=== PATIENT | male | born 1945 | race Caucasian/White ===

== ENCOUNTER 2016-10-02 14:38 | Inpatient (IN) | payer OTHER ==
[~2016-10-02] VITALS: Ht 172.7 cm; Wt 69.7 kg
[~2016-10-02 14:38] MED LIST: FLV1 PO; GABA-112 PO; OLAN1TAB5 PO; OMG3 PO; PYR50 PO; VTMB12100 PO; VTMD1000 PO; ZOLP10TA PO
[2016-10-02 14:51] VITALS: O2SAT 96
[2016-10-02 15:38] LABS: URINE APPEARANCE CLOUDY (CLEAR); URINE BILIRUBIN NEG (NEG); URINE COLOR YELLOW; URINE EPITHELIAL CELL AUTO 0-5 /lpf (0-5); URINE NITRITE NEG (NEG); URINE SPECIFIC GRAVITY 1.012 (1.000-1.030); UROBILINOGEN NEG (NEG); ZZUR CULT IF INDIC CLEAN CATCH NO
[2016-10-02 15:43] LABS: MEAN CELL VOLUME 90.5 fL (80-100); MEAN CORPUSCULAR HEMOGLOBIN 31.7 pg (25-34); MEAN PLATELET VOLUME 8.6 fL (7.4-10.4); PLATELET COUNT 263 K/uL (130-400); RED BLOOD COUNT 4.86 M/uL (4.7-6.1); WHITE BLOOD COUNT 8.74 K/uL (4.8-10.8)
[2016-10-02 15:50] LABS: BENZODIAZEPINE, URINE NEG (NEG); COCAINE,URINE NEG (NEG); MANUAL MICROSCOPIC REQUIRED? NO; PHENCYCLIDINE, URINE NEG (NEG); REVIEW REQ? NO
--- NOTE | 2016-10-02 15:59 | EMERGENCY ROOM VISIT NOTE ---
History Report prepared by Len: Elder Miguel Under the Supervision of: Dr. Shaquille Saha M.D. First contact with patient: 15:09 Chief Complaint: MENTAL HEALTH EVALUATION Stated Complaint: SUICIDAL COMMENTS/THOUGHTS-SENT BY [facility] History of Present Illness The patient is a 71 year old male who presents to the Emergency Room from [place] [facility] with complaints of sudden suicidal ideation beginning several hours prior to arrival. As per nurse, the patient was making suicidal comments. [facility] was called, and the patient was brought to the ED with the counter caser. The patient states he took 100 Aspirin tablets in an attempt to kill himself two months ago but was unsuccessful. He notes he never told anyone about the incident. The patient states he also bought a rope two weeks ago with thoughts to hang himself. He notes he wants to hang himself because of a constant ringing in his right ear. The patient states the ringing in his ear has been ongoing for 20 years. He notes he is willing to come into the hospital for further treatment. The patient denies nausea, vomiting, diarrhea, and abdominal pain. 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 Review of Systems See HPI for pertinent positives & negatives. A total of 10 systems reviewed and were otherwise negative. Past Medical & Surgical Medical Problems: (1) Benzodiazepine abuse (2) Depression (3) Hypertension (4) Noncompliance (5) past psych meds (6) past psycy meds (7) Schizophrenia (8) Tobacco use disorder Family History FH: schizophrenia Social History Smoking Status: Former Smoker Alcohol Use: none Drug Use: none Marital Status: single Housing Status: lives alone Occupation Status: disabled, other Current/Historical Medications Scheduled Clonidine Hcl (Catapres), 0.1 MG PO BID Fish Oil (Fish Oil), 2 GM PO HS Folic Acid (Folic Acid), 400 MCG PO HS Gabapentin (Neurontin), 100 MG PO TID Olanzapine (Zyprexa), 20 MG PO HS Olanzapine (Olanzapine), 10 MG PO HS Scheduled PRN Zolpidem Tartrate (Ambien), 10 MG PO HS PRN for Sleep Allergies Coded Allergies: No Known Allergies (Unverified , 05/09/16) Physical Exam Vital Signs Date Time Temp Pulse Resp B/P Pulse Ox O2 Delivery O2 Flow Rate FiO2 10/02/16 14:51 37.1 99 20 126/81 96 Room Air Physical Exam GENERAL: Patient is in no acute distress. HEENT: No acute trauma, normocephalic atraumatic, mucous membranes moist, no nasal congestion, no scleral icterus. Left TM occluded by wax. Right TM normal. NECK: No stridor, no adenopathy, no meningismus, trachea is midline. LUNGS: Clear to auscultation bilaterally, no wheeze, no rhonchi, breath sounds equal. HEART: Without murmurs gallops or rubs, regular rate and rhythm. ABDOMEN: Soft, nontender, bowel sounds positive, no hernias, no peritonitis. EXTREMITIES: No cyanosis or edema, full range of motion of all the joints without pain or difficulty, no signs for acute trauma. NEUROLOGIC: Oriented x 3, no acute motor or sensory deficits, no focal weakness. SKIN: No rash, no jaundice, no diaphoresis. PSYCH: Cooperative. Admits to suicidal ideation with a plan to hang himself. Currently voluntary. Currently cooperative. Medical Decision & Procedures Laboratory Results 10/02/16 15:32 10/02/16 15:32 Test 10/02/16 15:00 10/02/16 15:32 Urine Color YELLOW Urine Appearance CLOUDY (CLEAR) Urine pH 8.0 (4.5-7.5) Urine Specific Dickinson 1.012 (1.000-1.030) Urine Protein NEG (NEG) Urine Glucose (UA) NEG (NEG) Urine Ketones NEG (NEG) Urine Occult Blood TRACE (NEG) Urine Nitrite NEG (NEG) Urine Bilirubin NEG (NEG) Urine Urobilinogen NEG (NEG) Urine Leukocyte Esterase NEG (NEG) Urine WBC (Auto) 0 /hpf (0-5) Urine RBC (Auto) 5-10 /hpf (0-4) Urine Hyaline Casts (Auto) 0 /lpf (0-5) Urine Epithelial Cells (Auto) 0-5 /lpf (0-5) Urine Bacteria (Auto) NEG (NEG) Urine Opiates Screen NEG (NEG) Urine Methadone, Qualitative NEG (NEG) Urine Barbiturates NEG (NEG) Urine Phencyclidine (PCP) Level NEG (NEG) Ur Amphetamine/Methamphetamine NEG (NEG) MDMA (Ecstasy) Screen NEG (NEG) Urine Benzodiazepines Screen NEG (NEG) Urine Cocaine Metabolite NEG (NEG) Urine Marijuana (THC) NEG (NEG) Red Blood Count 4.86 M/uL (4.7-6.1) Mean Corpuscular Volume 90.5 fL (80-100) Mean Corpuscular Hemoglobin 31.7 pg (25-34) Mean Corpuscular Hemoglobin Concent 35.0 g/dl (32-36) RDW Standard Deviation 43.6 fL (36.4-46.3) RDW Coefficient of Variation 13.2 % (11.5-14.5) Mean Platelet Volume 8.6 fL (7.4-10.4) Anion Gap 12.0 mmol/L (3-11) Est Creatinine Clear Calc Drug Dose 80.1 ml/min Estimated GFR () 103.3 Estimated GFR (Non- 89.2 BUN/Creatinine Ratio 23.9 (10-20) Calcium Level 9.0 mg/dl (8.5-10.1) Total Bilirubin 0.6 mg/dl (0.2-1) Aspartate Amino Transf (AST/SGOT) 16 U/L (15-37) Alanine Aminotransferase (ALT/SGPT) 28 U/L (12-78) Alkaline Phosphatase 90 U/L (45-117) Total Protein 7.7 gm/dl (6.4-8.2) Albumin 3.7 gm/dl (3.4-5.0) Globulin 4.0 gm/dl (2.5-4.0) Albumin/Globulin Ratio 0.9 (0.9-2) Thyroid Stimulating Hormone (TSH) 2.680 uIu/ml (0.300-4.500) Salicylates Level < 1.7 mg/dl (2.8-20) Acetaminophen Level < 2 ug/ml (10-30) Ethyl Alcohol mg/dL < 3.0 mg/dl (0-3) Laboratory results reviewed by me. ED Course 1512: The patient was evaluated in room A7. A complete history and physical exam was performed. 1910: The patient was accepted for admission upstairs to Psych. Medical Decision The differential diagnoses include but are not limited to: suicidal ideation, medication noncompliance, drug or alcohol abuse, electrolyte imbalance, thyroid disorder. There is no leukocytosis or concerning anemia. No significant electrolyte abnormality, kidney failure, hepatitis. The patient appears to be in a euthyroid state. Urinalysis shows some mild hematuria, no signs of infection. Urine tox was negative. Aspirin, Tylenol and alcohol levels were undetectable. The patient presents with suicidal ideation. He is willing to come into the hospital voluntarily. He was felt medically clear for a psychiatric evaluation. The patient was seen by the psychiatric director of casework department. He was seen by the psychiatric services from our hospital, he will be admitted to this hospital's psychiatric facility. Impression Primary Impression: Suicidal ideation Scribe Attestation The scribe's documentation has been prepared under my direction and personally reviewed by me in its entirety. I confirm that the note above accurately reflects all work, treatment, procedures, and medical decision making performed by me. Departure Information Dispostion Mental Health Acute Care Referrals No Doctor, Assigned (PCP)
[2016-10-02 16:12] LABS: ACETAMINOPHEN < 2 ug/ml (10-30); BUN/CREATININE RATIO 23.9 (10-20); CREATININE 0.83 mg/dl (0.60-1.40); POTASSIUM 3.9 mmol/L (3.5-5.1)
[2016-10-02 16:24] LABS: ALB/GLOB RATIO 0.9 (0.9-2); THYROID STIMULATING HORMONE 2.68 uIu/ml (0.300-4.500)
[2016-10-02] MEDS ORDERED: ZYP10 PO (16:51)
[2016-10-02] MEDS ORDERED: FLV400 PO (16:51)
[2016-10-02] MEDS ORDERED: CTP/1 PO (16:51)
[2016-10-02] MEDS ORDERED: BISMUTH SUBSALICYLATE PER ML OMNICELL CHARGE PO PRN (17:30)
[2016-10-02] MEDS ORDERED: ALUMINUM/MAGNESIUM SUSP 30 ML UDC PO PRN (17:30)
[2016-10-02] MEDS ORDERED: SODIUM CHLORIDE 0.65% NA SOLN 45 ML (OCEAN) PRN (17:30)
[2016-10-02] MEDS ORDERED: hydrOXYzine HCL 25 MG TAB PO PRN ×2 (17:30)
[2016-10-02] MEDS ORDERED: ACETAMINOPHEN 325 MG TAB PO PRN (17:30)
[2016-10-02 20:10] VITALS: BP_SYST 135; BP_SYST 143; BP_DIAS 88; BP_DIAS 89; PULSE 88; PULSE 89; TEMP 37.2; Ht 172.7 cm; Wt 69.7 kg
[2016-10-02] MEDS: FoLIC ACID TAB 400 MCG TAB PO SCH (21:55)
[2016-10-02] MEDS: GABAPENTIN 100 MG CAP PO SCH (21:56)
[2016-10-02] MEDS: OMEGA-3 (PURIFIED FISH OIL) 1 GM CAP PO SCH (21:57)
[2016-10-02] MEDS: OLANZAPINE 20 MG TAB PO SCH (21:59)
[2016-10-02] MEDS: ZOLPIDEM TARTRATE 10 MG TAB PO PRN (21:59)
[2016-10-02] MEDS ORDERED: OLANZAPINE 10 MG TAB PO SCH (22:00)
[2016-10-02 22:17] VITALS: BP 109/69; PULSE 84
[2016-10-02] MEDS: CLONIDINE HCL 0.1 MG TAB PO SCH (22:36)
[2016-10-03 06:52] VITALS: BP_SYST 125; BP_SYST 133; BP_DIAS 75; BP_DIAS 83; PULSE 76; PULSE 87; TEMP 36.9
[2016-10-03] MEDS: GABAPENTIN 100 MG CAP PO SCH ×3 (08:50→21:28)
[2016-10-03] MEDS: NICOTINE 21 MG/24 HR TDSY TD SCH (08:50)
[2016-10-03] MEDS: CLONIDINE HCL 0.1 MG TAB PO SCH ×2 (08:50→21:10)
[2016-10-03] MEDS ORDERED: QUETIAPINE FUMARATE 25 MG TAB PO PRN (09:45)
--- NOTE | 2016-10-03 11:04 | HISTORY & PHYSICAL EXAMINATION ---
DATE OF ADMISSION: 10/02/2016 IDENTIFYING DATA: Trey Santiago is a 71-year-old gentleman currently residing at the [facility] in [place], [place]. He is admitted to the hospital due to suicidal statements, history of overdose 2 months ago and exacerbation of schizophrenia. Information is gathered from the patient and considered to be reliable. CHIEF COMPLAINT: "Noise on the right side of my face." HISTORY OF PRESENT ILLNESS: Jamie Santiago is a 71-year-old gentleman well known to our unit from multiple hospitalizations for paranoid schizophrenia. He was last here in the summer of 2015 for an extended stay from 03/16/2016 to 04/27/2016. Although we had considered long-term state hospitalization, he was discharged back to the [facility] where he had resided previously. He is under the outpatient care of SHA Jasmine at [facility]. He reports that he went to see her yesterday, requested Valium for his high anxiety, which was denied. He admits that he got "upset" and went home and made suicidal statements. He admits to having a rope on his counter which he says is there to remind him how much he wants to live; however, reports were that he had the rope to hang himself and when asked to turn that over to the [facility] staff he said that they could take it, but he would just get another one and that it was intended for his use in suicide. This will need to be confirmed with the [facility] staff. He indicates his primary problem is that he still has pain and noise in his right ear and the right side of his face. He says that his anxiety is bad, nobody understands it and the only thing that helped is Valium. He also says the pain is severe and asks for medications, but when I review with him that we will not be prescribing narcotics he says "okay." He does admit that about 2 months ago, she took an overdose of 100 aspirin tablets in a suicide attempt because "I couldn't stand the ringing". He said nothing happened. He did not come to medical or psychiatric attention and he said he has had no medical sequelae since then including worsening to the ringing in his ears. He reports that "I have a good mood". He denies that he is suicidal and says clearly "I want to live." His energy has been "medium". His appetite is good, weight has been stable. His anxiety is "not good" but denies panic attacks. He says that for the most part his auditory hallucinations are gone although he says that occasionally he may hear what he thinks is 1 voice but it is "not bad." He denies visual hallucinations. He denies ideas of reference from TV or radio. He denies self-injurious behaviors. He has never had any history of eating disordered behaviors. He has not had any evidence of bipolar illness. CURRENT MEDICATIONS: 1. Catapres 0.1 mg b.i.d. 2. Fish oil 2 grams at bedtime. 3. Folic acid 400 mcg at bedtime. 4. Neurontin 100 mg t.i.d. 5. Zyprexa 30 mg at bedtime. 6. Ambien 10 mg at bedtime p.r.n. PAST PSYCHIATRIC HISTORY: Again, the patient sees SHA Jasmine at [facility]. He does not have a therapist. His case maker currently is a woman whose name is Kat. He has had many hospitalizations in the past on our mental health unit, [facility], and a stay at [facility] in 2013. He has made at least 1 suicide attempt in the past by overdose. He denies any evidence of violence to others in the last 6 months but violence to self by way of the aspirin overdose 2 months ago. PRIOR MEDICATION TRIALS: Include but are not limited to: 1. Zyprexa. 2. Risperdal. 3. Abilify. 4. Haldol -- dystonia. 5. Amitriptyline. 6. Imipramine. 7. Ambien. 8. Thorazine - NMS. 9. Temazepam. 10. Cymbalta -- GI symptoms. 11. Navane. 12. Loxitane. 13. Invega. 14. Latuda. ACCESS TO GUNS: Denies. ALLERGIES: NKDA. PAST MEDICAL HISTORY: 1. Hypertension. 2. Denies for personal history of obesity, diabetes, dyslipidemia or cardiovascular disease. 3. No history of head injury or seizure. 4. Tobacco use -- nonsmoker. FAMILY HISTORY: Positive for a cousin with schizophrenia who committed suicide. Mother also had schizophrenia and father was an alcoholic. Medically, he denies family history for obesity, hypertension, diabetes, heart disease or dyslipidemia. SUBSTANCE USE HISTORY: The patient has a very remote history of binge drinking, but nothing in the last 1 year. He has a remote history of cannabis use but none in the last year. He denies ever having been in substance use treatment. He did have charges related to growing marijuana many years ago. PERSONAL HISTORY: The patient was born in [place]. He moved around a lot growing up as his father was an combustion engineer. The patient has a college degree from [employer]. 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 The patient has never been . He has no children. He does not consider himself to be a spiritual individual. Legal concerns are denied. Psychological trauma history is denied. MENTAL STATUS EXAMINATION: This 71-year-old gentleman who looks much younger than his stated age. He is alert and cooperative with the interview. He does appear to be slightly hard of hearing and I have to speak louder to be heard. He makes good eye contact. Motor behavior is unremarkable; gait and station are within normal limits. There is no evidence of abnormal mouth or other muscle movements. Speech is of normal rate, volume, and tone. Affect is flat to restricted. Mood is "good." Thought process is organized and goal directed. He endorses occasional auditory hallucinations of 1 voice and ongoing complaints of ringing in his ears that may or may not be delusional. He denies suicidal thinking, although it was reported he made suicidal statements in response to being upset that he will not be prescribed Valium, prior to admission. He denies homicidal ideation. Today, the patient is fully oriented. Memory functions are intact. Fund of knowledge is intact. Intelligence is estimated to be average. Insight and judgment are impaired. VITAL SIGNS: Temperature 36.9, pulse 76 supine, 87 sitting, respirations 16, blood pressure 125/75 supine, 133/83 sitting. LABORATORIES: 1. CBC -- within normal limits. 2. Chem profile -- notable only for BUN slightly elevated at 20, random glucose elevated at 110. 3. TSH -- within normal limits at 2.680. 4. Toxicology -- negative. 5. Urinalysis -- within normal limits with the exception of a trace amount of occult blood. 6. IgG and IgM pending. REVIEW OF SYSTEMS: A full 10 systems has been reviewed and all found to be negative. PHYSICAL EXAMINATION: Exam performed by Dr. Saha in the Emergency Room last night has been reviewed and accepted for our purposes here on the mental health unit. PATIENT'S STRENGTHS AND NEEDS: 1. Strengths -- intelligence, good support from outpatient providers. 2. Needs - to be cooperative with treatment recommendations. RISK ASSESSMENT: 1. Risk factors -- male, , single, chronic mental illness, chronic anxiety, history of substance use, history of suicide attempts, multiple hospitalizations. 2. Protective factors -- no access to guns, no comorbid medical conditions impairing recovery, lives in a supervised living situation at [facility], has good relationship with outpatient providers. IMPRESSION: A 71-year-old gentleman with schizophrenia, well known to our unit, admitted after making suicidal statements when he was not provided Valium. He otherwise denies that he is having mood problems but says his biggest problem is anxiety. In review of his past medications I find only limited evidence that he has tried Seroquel in the past, specifically I see he had a 1 time dose during an admission in 2010. He does not remember having been on Seroquel and is agreeable to a trial of this, which I think may be better able to tamp down his anxiety. The concern is that he is on a more potent antipsychotic and admits that the auditory hallucinations have abated on this medication. We will be cautious and with any evidence of return of hallucinations, will either escalate the dose of Seroquel or return to Zyprexa. At this point I will cut the Zyprexa to 20 mg at bedtime and start Seroquel 100 mg at bedtime with the intent to cross taper. I will also order 25 mg p.o. q. 6 hours p.r.n. anxiety associated with psychosis. We will continue his other medications, coordinate with his outpatient providers. At this time, however, he requires inpatient mental health treatment due to the severity of his condition, threats to commit suicide and the risk for same if discharged. DIAGNOSES: 1. Paranoid schizophrenia, acute exacerbation. 2. Hypertension. PLAN: Has been reviewed with Dr. Alison Campos. 1. Paranoid schizophrenia. -- Reduce Zyprexa to 20 mg at bedtime while starting Seroquel 100 mg at bedtime for cross titration. -- We will also start Seroquel 25 mg p.o. q. 4 hours p.r.n. anxiety associated with psychosis. -- Obtain outpatient records from current providers. -- Q. 15 minute checks for safety. -- Encourage participation in group and individual counseling. -- Reality orientation. -- Encourage behavioral interventions for anxiety such as relaxation, mindfulness and breathing exercise. 2. Hypertension. -- Continue clonidine at outpatient doses. -- Monitor BP. INITIAL HOSPITAL CARE: [id number].
[2016-10-03] MEDS: ZOLPIDEM TARTRATE 10 MG TAB PO PRN (21:10)
[2016-10-03] MEDS: QUETIAPINE FUMARATE 100 MG TAB PO SCH (21:10)
[2016-10-03] MEDS: OLANZAPINE 20 MG TAB PO SCH (21:10)
[2016-10-03] MEDS: OMEGA-3 (PURIFIED FISH OIL) 1 GM CAP PO SCH (21:10)
[2016-10-03] MEDS: FoLIC ACID TAB 400 MCG TAB PO SCH (21:10)
[2016-10-03 21:14] VITALS: BP 138/83; PULSE 72
[2016-10-04 06:52] VITALS: BP_SYST 103; BP_SYST 133; BP_DIAS 63; BP_DIAS 82; PULSE 65; PULSE 74; TEMP 36.9
[2016-10-04 07:54] LABS: CHOLESTEROL/HDL RATIO 2.6
[2016-10-04] MEDS: NICOTINE 21 MG/24 HR TDSY TD SCH (08:57)
[2016-10-04] MEDS: GABAPENTIN 100 MG CAP PO SCH ×3 (08:57→21:11)
[2016-10-04] MEDS: CLONIDINE HCL 0.1 MG TAB PO SCH ×2 (08:57→21:11)
--- NOTE | 2016-10-04 10:55 | Psychiatric Progress Notes ---
Progress Note Date of Service Oct 04, 2016. Interval History 71 yo man with schizophrenia, admitted with ongoing reports of a ringing in his ear, and suicidality having by report, attempted to hang himself with a rope. He was admitted voluntarily on 10/05 Chief Complaint "OK". Subjective Patient was seen & assessed interval progress reviewed with Treatment Team. The patient says that he is doing well, with good mood. He said that he didn't think that he got the Seroquel last night but had a good night's sleep (did get per med rec). He is still complaining of ringing in his right ear and pain in the right side of his face. Info obtained from his case liner who said that Jamie had been to see [facility] for the first time yesterday and was upset that she would not prescribe valium, leading to his suicidality. He has also had a recent workup with and ENT in the area and no pathology found. The patient is pleased that he slept and would like to continue the cross taper to Seroquel. He denies visual hallucinations or voices. He reports good appetite and sleep. He denies SI/HI. Review of Systems Constitutional: No chills, No fatigue, No fever, No problem reported, No sweats , No weakness, No weight loss ENT: + hearing loss, + problem reported (ringing right ear) Respiratory: No cough, No dyspnea at rest, No dyspnea on exertion, No hemoptysis, No problem reported, No shortness of breath, No sputum, No wheezing Cardiovascular: No PND, No chest pain, No claudication, No edema, No orthopnea , No palpitations, No problem reported Abdomen: No GI bleeding, No constipation, No diarrhea, No nausea, No pain, No problem reported, No vomiting Musculoskeletal: No calf pain, No joint pain, No muscle pain, No problem reported, No swelling Neurologic: No balance problems, No memory loss, No numbness/tingling, No paralysis, No problem reported, No vertigo, No weakness Psychiatric: + anxiety Integumentary: No bleeding, No color change, No itch, No new/changing skin lesions, No problem reported, No rash Sleep Information Total Hours of Sleep: 7.00 Meal Information Percent of Breakfast Consumed: 100 Percent of Lunch Consumed: 100 Percent of Dinner Consumed: 100 Mental Status Exam During interview pt is: alert and oriented, cooperative Appearance: appropriately dressed, appropriately groomed Eye contact is: good Motor behavior is: steady gait & station, no abnormal motor movements Speech: normal in rate, rhythm & volume Affect: flat (and not mood congruent) Mood is: anxious Thought process: goal directed Thought content: preoccupation (with ringing in his ear that could be delusional) Suicidal thought are: denied Homicidal thoughts are: denied Hallucinations: auditory, denies auditory Cognition: memory grossly intact, attention grossly intact Intelligence estimated to be: average Insight: impaired Judgement: impaired Impression Cooperative with treatment, is attending groups. Is tolerating initiation of Seroquel, so will increase to 150 mg. tonight and reduce zyprexa to 15 mg. HS. Will need to arrange a meeting with [facility] staff to clarify events leading to hospitalization, and to clarify their expectations. Although he is saying that he is not suicidal, I have high suspicion that he is minimizing this in an effort to look better than he is. He has very few protective factors to prevent him from attempting again. Continued Inpatient Care Requires inpatient care due to the severity of his condition and the risk for self harm if discharged. Plan (1) paranoid schizophrenia 10/05 - Increase Seroquel to 150 mg. - Decrease Zyprexa to 15 mg. HS - Coordinate with [facility] and arrange meeting - Q 15 min checks for safety - Encourage participation in group and individual counseling - Will need to determine if the patient will be returning to [facility] or back to Dr. Alves - Monitoring labs for atypicals completed 10/04, and WNL Discharge / Aftercare Planning Psychiatrist: Name: Rosa M Parker through [facility] Therapist: Name: does not want Philanthropy Officer: Name: Shruti rhoades case liner and goal clinical care manager Visit Code E&M Code: 34918 Inventory Assets Strengths: Intelligence, willingness to engage in treatment Needs: Insight Risk Factors Assessment Male: Yes : Yes /single/: Yes Higher / Fall in social status: No Access to guns: No Health problems: No Mental Health Diagnoses: Yes Substance use disorders: Yes Previous attempt: Yes Previous psychiatric stay: Yes Protective Factors Assessment Tenriism beliefs: No : No Responsible for young children: No Employed: No Stable relationships: No Supportive family: No Good rapport with provider: No Data Vital Signs Last 24 Hrs: Date Time Temp Pulse Resp B/P Pulse Ox O2 Delivery O2 Flow Rate FiO2 10/04/16 06:52 36.9 65 18 103/63 74 133/82 10/03/16 21:14 72 16 138/83 72 Meds Administered Last 24 Hrs: Meds Administered (Past 24Hrs) Medications (Trade) Dose Ordered Sig/Gabe Route Start Time Stop Time Status Last Admin Dose Admin Clonidine HCl (Catapres Tab) 0.1 mg BID PO 10/02/16 21:00 11/01/16 20:59 Future hold 10/04/16 08:57 0.1 MG Fish Oil (Conner-3 (Purified Fish Oil) Cap) 2 gm HS PO 10/02/16 22:00 11/01/16 21:59 10/03/16 21:10 2 GM Folic Acid (Folvite Tab) 400 mcg HS PO 10/02/16 22:00 11/01/16 21:59 10/03/16 21:10 400 MCG Gabapentin (Neurontin Cap) 100 mg TID PO 10/02/16 22:00 11/01/16 21:59 10/04/16 08:57 100 MG Olanzapine (Zyprexa Tab) 10 mg HS PO 10/02/16 22:00 10/03/16 09:44 DC 10/02/16 22:03 10 MG Olanzapine (Zyprexa Tab) 20 mg HS PO 10/02/16 22:00 11/01/16 21:59 10/03/16 21:10 20 MG Zolpidem Tartrate (Ambien Tab) 10 mg HS PRN PO 10/02/16 19:30 11/01/16 19:29 10/03/16 21:10 10 MG Nicotine (Nicoderm Cq 21MG Patch) 1 patch QAM TD 10/03/16 09:00 11/02/16 08:59 10/04/16 08:57 1 PATCH Quetiapine Fumarate (seroQUEL TAB) 100 mg HS PO 10/03/16 22:00 11/02/16 21:59 10/03/16 21:10 100 MG Lab Results Last 24 Hrs: Last 24 Hours Test 10/04/16 07:07 Fasting Glucose 91 mg/dl Triglycerides Level 54 mg/dl Cholesterol Level 154 mg/dl HDL Cholesterol 59 mg/dl LDL Cholesterol, Calculated 84 mg/dl VLDL Cholesterol, Calculated 11 mg/dl Cholesterol/HDL Ratio 2.6
[2016-10-04 21:06] VITALS: BP 130/85; PULSE 73
[2016-10-04] MEDS: FoLIC ACID TAB 400 MCG TAB PO SCH (21:11)
[2016-10-04] MEDS: OMEGA-3 (PURIFIED FISH OIL) 1 GM CAP PO SCH (21:11)
[2016-10-04] MEDS: OLANZAPINE 20 MG TAB PO SCH (21:13)
[2016-10-04] MEDS: QUETIAPINE FUMARATE 100 MG TAB PO SCH (21:13)
[2016-10-05 06:51] VITALS: BP_SYST 112; BP_SYST 117; BP_DIAS 69; BP_DIAS 77; PULSE 68; PULSE 78; TEMP 36.8
[2016-10-05] MEDS: NICOTINE 21 MG/24 HR TDSY TD SCH (09:06)
[2016-10-05] MEDS: GABAPENTIN 100 MG CAP PO SCH ×3 (09:06→21:30)
[2016-10-05] MEDS: CLONIDINE HCL 0.1 MG TAB PO SCH ×2 (09:06→21:29)
[2016-10-05] MEDS: MAGNESIUM HYDROXIDE SUSP 30 ML UDC PO PRN (13:35)
--- NOTE | 2016-10-05 14:02 | Psychiatric Progress Notes ---
Progress Note Date of Service Oct 05, 2016. Interval History 71 yo man with schizophrenia, admitted with ongoing reports of a ringing in his ear, and suicidality having by report, attempted to hang himself with a rope. He was admitted voluntarily on 10/05 Chief Complaint "I always have the ringing". Subjective Patient was seen & assessed interval progress reviewed with Treatment Team. Patient known to me from a previous hospitalizations. He did not ask me for Valium but continues to discuss Valium in groups and with staff. He does note some benefit from Seroquel for sleep and is agreeable to ongoing cross taper. Review of Systems Psych: denies symptoms other than stated above Constitutional: denied Cardiovascular: denied GI: constipation Neurologic: ringing in head Remainder of 10 body systems also reviewed and denied other than noted above. Sleep Information Total Hours of Sleep: 7.25 Meal Information Percent of Breakfast Consumed: 100 Percent of Lunch Consumed: 100 Percent of Dinner Consumed: 100 Mental Status Exam During interview pt is: alert and oriented, cooperative Appearance: appropriately dressed, appropriately groomed Eye contact is: good Motor behavior is: steady gait & station, no abnormal motor movements Speech: normal in rate, rhythm & volume Affect: flat (and not mood congruent) Mood is: anxious Thought process: goal directed Thought content: preoccupation (with ringing in his ear that could be delusional) Suicidal thought are: denied Homicidal thoughts are: denied Hallucinations: auditory, denies auditory Cognition: memory grossly intact, attention grossly intact Intelligence estimated to be: average Insight: impaired Judgement: impaired Impression Cooperative with treatment, is attending groups. Is tolerating initiation of Seroquel, so will increase to 150 mg. tonight and reduce zyprexa to 15 mg. HS. Will need to arrange a meeting with [facility] staff to clarify events leading to hospitalization, and to clarify their expectations. Although he is saying that he is not suicidal, I have high suspicion that he is minimizing this in an effort to look better than he is. He has very few protective factors to prevent him from attempting again. Continued Inpatient Care Requires inpatient care due to the severity of his condition and the risk for self harm if discharged. Plan (1) paranoid schizophrenia 10/04 per RUBI Sullivan - Increase Seroquel to 150 mg. - Decrease Zyprexa to 15 mg. HS - Coordinate with [facility] and arrange meeting - Q 15 min checks for safety - Encourage participation in group and individual counseling - Will need to determine if the patient will be returning to [facility] or back to Dr. Alves - Monitoring labs for atypicals completed 10/04, and WNL 10/05--continue cross taper to Seroquel. Zyprexa 10 mg this hs with 200 mg seroquel then d/c Zyprexa and increase Seroquel to 300 mg starting 10/06. Discharge / Aftercare Planning Psychiatrist: Name: [facility] through [facility] Therapist: Name: does not want Farm Manager: Name: [place] rhoades caseworker protective services and goal marketing assistant manager Visit Code E&M Code: 95084 Inventory Assets Strengths: Intelligence, willingness to engage in treatment Needs: Insight Risk Factors Assessment Male: Yes : Yes /single/: Yes Higher / Fall in social status: No Access to guns: No Health problems: No Mental Health Diagnoses: Yes Substance use disorders: Yes Previous attempt: Yes Previous psychiatric stay: Yes Protective Factors Assessment Nondenominational beliefs: No : No Responsible for young children: No Employed: No Stable relationships: No Supportive family: No Good rapport with provider: No Data Vital Signs Last 24 Hrs: Date Time Temp Pulse Resp B/P Pulse Ox O2 Delivery O2 Flow Rate FiO2 10/05/16 06:51 36.8 68 18 112/69 78 117/77 10/04/16 21:06 73 130/85 Meds Administered Last 24 Hrs: Meds Administered (Past 24Hrs) Medications (Trade) Dose Ordered Sig/Gabe Route Start Time Stop Time Status Last Admin Dose Admin Quetiapine Fumarate (seroQUEL TAB) 100 mg HS PO 10/03/16 22:00 11/02/16 21:59 10/04/16 21:13 100 MG
[2016-10-05 18:40] LABS: RMSF IgM AB Not Detected (Not Detected)
[2016-10-05] MEDS: FoLIC ACID TAB 400 MCG TAB PO SCH (21:29)
[2016-10-05] MEDS: QUETIAPINE FUMARATE 200 MG TAB PO SCH (21:30)
[2016-10-05] MEDS: OMEGA-3 (PURIFIED FISH OIL) 1 GM CAP PO SCH (21:30)
[2016-10-05] MEDS ORDERED: OLANZAPINE 10 MG TAB PO ONE (22:00)
[2016-10-06 06:59] VITALS: BP_SYST 102; BP_SYST 112; BP_DIAS 62; BP_DIAS 69; PULSE 62; PULSE 71; TEMP 36.4
[2016-10-06] MEDS: MAGNESIUM HYDROXIDE SUSP 30 ML UDC PO PRN (08:12)
[2016-10-06] MEDS: CLONIDINE HCL 0.1 MG TAB PO SCH ×2 (08:13→20:59)
[2016-10-06] MEDS: GABAPENTIN 100 MG CAP PO SCH ×3 (08:14→20:59)
[2016-10-06] MEDS: NICOTINE 21 MG/24 HR TDSY TD SCH (08:48)
--- NOTE | 2016-10-06 10:21 | Psychiatric Progress Notes ---
Progress Note Date of Service Oct 06, 2016. Interval History 71 yo man with schizophrenia, admitted with ongoing reports of a ringing in his ear, and suicidality having by report, attempted to hang himself with a rope. He was admitted voluntarily on 10/05 Chief Complaint "I feel foggy this am". Subjective Patient was seen & assessed interval progress reviewed with nursing and Dr. Andrews. He continues to rub his eye at times but denies visual angeles, ringing "same as always". Paces a bit but denies akathisia. Superficial in peer/group interactions. Review of Systems Psych: denies symptoms other than stated above Constitutional: fatigue as above Cardiovascular: denied GI: denied Neurologic: denied Sleep Information Total Hours of Sleep: 7.00 Meal Information Percent of Breakfast Consumed: 100 Percent of Lunch Consumed: 100 Percent of Dinner Consumed: 100 Mental Status Exam During interview pt is: alert and oriented, cooperative Appearance: appropriately dressed, appropriately groomed Eye contact is: good Motor behavior is: steady gait & station, no abnormal motor movements Speech: normal in rate, rhythm & volume Affect: flat (and not mood congruent) Mood is: anxious Thought process: goal directed Thought content: preoccupation (with ringing in his ear that could be delusional) Suicidal thought are: denied Homicidal thoughts are: denied Hallucinations: auditory, denies auditory Cognition: memory grossly intact, attention grossly intact Intelligence estimated to be: average Insight: impaired Judgement: impaired Impression [facility] has confirmed that he is able to return. Continued Inpatient Care Requires inpatient care due to the severity of his condition and the risk for self harm if discharged. Plan (1) paranoid schizophrenia 10/04 per RUBI Sullivan - Increase Seroquel to 150 mg. - Decrease Zyprexa to 15 mg. HS - Coordinate with [facility] and arrange meeting - Q 15 min checks for safety - Encourage participation in group and individual counseling - Will need to determine if the patient will be returning to [facility] or back to Dr. Alves - Monitoring labs for atypicals completed 10/04, and WNL 10/05--continue cross taper to Seroquel. Zyprexa 10 mg this hs with 200 mg seroquel then d/c Zyprexa and increase Seroquel to 300 mg starting 10/06. 10/06--hold further titration of Seroquel. Will continue 200 mg this hs and job specification writer provider to determine if able to titrate 10/07. Discharge / Aftercare Planning Psychiatrist: Name: [facility] Therapist: Name: does not want Animal Trainer: Name: [place] rhoades telephonic nurse case manager and goal manager appointment Visit Code E&M Code: 13567 Inventory Assets Strengths: Intelligence, willingness to engage in treatment Needs: Insight Risk Factors Assessment Male: Yes : Yes /single/: Yes Higher / Fall in social status: No Access to guns: No Health problems: No Mental Health Diagnoses: Yes Substance use disorders: Yes Previous attempt: Yes Previous psychiatric stay: Yes Protective Factors Assessment Sikhism beliefs: No : No Responsible for young children: No Employed: No Stable relationships: No Supportive family: No Good rapport with provider: No Data Vital Signs Last 24 Hrs: Date Time Temp Pulse Resp B/P Pulse Ox O2 Delivery O2 Flow Rate FiO2 10/06/16 06:59 36.4 62 16 112/69 71 102/62 Meds Administered Last 24 Hrs: Meds Administered (Past 24Hrs) Medications (Trade) Dose Ordered Sig/Gabe Route Start Time Stop Time Status Last Admin Dose Admin Olanzapine (Zyprexa Tab) 10 mg HS ONCE PO 10/05/16 22:00 10/05/16 22:01 DC 10/05/16 21:30 10 MG Quetiapine Fumarate (seroQUEL TAB) 200 mg HS PO 10/05/16 22:00 11/04/16 21:59 10/05/16 21:30 200 MG
[2016-10-06] MEDS ORDERED: DOCUSATE SODIUM 100 MG CAP PO ONE (12:00)
[2016-10-06] MEDS: FoLIC ACID TAB 400 MCG TAB PO SCH (20:59)
[2016-10-06] MEDS: QUETIAPINE FUMARATE 200 MG TAB PO SCH (20:59)
[2016-10-06] MEDS: DOCUSATE SODIUM 100 MG CAP PO SCH (20:59)
[2016-10-06] MEDS: OMEGA-3 (PURIFIED FISH OIL) 1 GM CAP PO SCH (21:00)
[2016-10-06 21:11] VITALS: BP 106/69; PULSE 62
[2016-10-07 07:00] VITALS: BP_SYST 112; BP_SYST 99; BP_DIAS 63; BP_DIAS 68; PULSE 75; PULSE 78; TEMP 36.5
[2016-10-07] MEDS: NICOTINE 21 MG/24 HR TDSY TD SCH (08:25)
[2016-10-07 08:30] VITALS: BP 116/77; PULSE 82
[2016-10-07] MEDS: GABAPENTIN 100 MG CAP PO SCH ×3 (08:32→21:02)
[2016-10-07] MEDS: CLONIDINE HCL 0.1 MG TAB PO SCH ×2 (08:32→21:03)
[2016-10-07] MEDS: DOCUSATE SODIUM 100 MG CAP PO SCH ×2 (08:32→21:02)
--- NOTE | 2016-10-07 17:17 | Psychiatric Progress Notes ---
Progress Note Date of Service Oct 07, 2016. Interval History 71 yo man with schizophrenia, admitted with ongoing reports of a ringing in his ear, and suicidality having by report, attempted to hang himself with a rope. He was admitted voluntarily on 10/05 Chief Complaint "I have terrible tinnitus". Subjective Patient was seen & assessed interval progress reviewed with Treatment Team Patient reports he is sleeping 6hours with intermittent wakings with his tinnitus and that it is terrible. Initially he states he has never seen ENT but then states he did, then later notes it was a neurologist at [place] and that "he said my hearing was fine" He has never had noise cancellation therapy and states valium is the only medication that will help. Provider reviewed prior records fom prior admissions that even when on valium 10mg po tid he still had the tinnitus and high anxiety. He is reluctant to concede but at least listens to why this provider is not going to return to valium to include not helpful, tolerance, h/ o poor boundaries with other medications to include vicodin (which patient denies but is clearly documented in a note circa 2012) He states the tinnitus makes him anxious and that it drives him mad and drives him to feel suicidal. He is fixated on his ear noise and denies voices at this moment (of note he denies beleiving he has a chip in his ear, nor other delusional beliefs he had endorsed in prior admissions giving a tight lipped tacit "no") He states he is taking the seroquel and feels is makes him feel cloudy headed. but denies feeling dizzy. He denies other physical concerns. Review of Systems denies other than noted above Sleep Information Total Hours of Sleep: 6.50 Meal Information Percent of Breakfast Consumed: 100 Percent of Lunch Consumed: 100 Percent of Dinner Consumed: 75 Mental Status Exam During interview pt is: alert and oriented, cooperative Appearance: appropriately dressed, appropriately groomed Eye contact is: good Motor behavior is: steady gait & station, no abnormal motor movements Speech: normal in rate, rhythm & volume Affect: flat (and not mood congruent) Mood is: anxious Thought process: goal directed Thought content: preoccupation (with ringing in his ear that could be delusional) Suicidal thought are: denied Homicidal thoughts are: denied Hallucinations: auditory, denies auditory Cognition: memory grossly intact, attention grossly intact Intelligence estimated to be: average Insight: impaired Judgement: impaired Impression CCR has confirmed that he is able to return. Continued Inpatient Care Requires inpatient care due to the severity of his condition and the risk for self harm if discharged. Plan (1) paranoid schizophrenia 10/04 per RUBI Sullivan - Increase Seroquel to 150 mg. - Decrease Zyprexa to 15 mg. HS - Coordinate with [facility] and arrange meeting - Q 15 min checks for safety - Encourage participation in group and individual counseling - Will need to determine if the patient will be returning to [facility] or back to Dr. Alves - Monitoring labs for atypicals completed 10/04, and WNL 10/05--continue cross taper to Seroquel. Zyprexa 10 mg this hs with 200 mg seroquel then d/c Zyprexa and increase Seroquel to 300 mg starting 10/06. 10/06--hold further titration of Seroquel. Will continue 200 mg this hs and physician liaison provider to determine if able to titrate 10/07. 10/07 hold seroquel at 200mg due to feeling of cloudy headedness, will give time to adjust, stop ambien to reduce cognitively impactful medications as he states it does not work, increase his gabapentin from 100mg po tid, to 200mg po bid ( he requests bid dosing as socially it requires him to be at [facility] mid day) and target is off label for anxiety and need to watch cognition and sedation Discharge / Aftercare Planning Psychiatrist: Name: [facility] through [facility] Therapist: Name: does not want Propulsion Engineer: Name: Shruti rhoades disease case manager and goal program manager Visit Code E&M Code: 08182 Inventory Assets Strengths: Intelligence, willingness to engage in treatment Needs: Insight Risk Factors Assessment Male: Yes : Yes /single/: Yes Higher / Fall in social status: No Access to guns: No Health problems: No Mental Health Diagnoses: Yes Substance use disorders: Yes Previous attempt: Yes Previous psychiatric stay: Yes Protective Factors Assessment Zoroastrianism beliefs: No : No Responsible for young children: No Employed: No Stable relationships: No Supportive family: No Good rapport with provider: No Data Vital Signs Last 24 Hrs: Date Time Temp Pulse Resp B/P Pulse Ox O2 Delivery O2 Flow Rate FiO2 10/07/16 08:30 82 116/77 10/07/16 07:00 36.5 75 16 112/68 78 99/63 10/06/16 21:11 62 106/69 Meds Administered Last 24 Hrs: Meds Administered (Past 24Hrs) Medications (Trade) Dose Ordered Sig/Gabe Route Start Time Stop Time Status Last Admin Dose Admin Olanzapine (Zyprexa Tab) 10 mg HS ONCE PO 10/05/16 22:00 10/05/16 22:01 DC 10/05/16 21:30 10 MG Quetiapine Fumarate (seroQUEL TAB) 200 mg HS PO 10/05/16 22:00 11/04/16 21:59 10/06/16 20:59 200 MG Docusate Sodium (coLACE CAP) 100 mg BID PO 10/06/16 22:00 11/05/16 21:59 10/07/16 08:32 100 MG Docusate Sodium (coLACE CAP) 100 mg 1200 ONCE PO 10/06/16 12:00 10/06/16 12:01 DC 10/06/16 12:37 100 MG
[2016-10-07] MEDS: FoLIC ACID TAB 400 MCG TAB PO SCH (21:02)
[2016-10-07] MEDS: QUETIAPINE FUMARATE 200 MG TAB PO SCH (21:02)
[2016-10-07] MEDS: OMEGA-3 (PURIFIED FISH OIL) 1 GM CAP PO SCH (21:02)
[2016-10-07 22:03] VITALS: BP 131/83; PULSE 76
[2016-10-08 06:56] VITALS: BP_SYST 115; BP_SYST 98; BP_DIAS 68; BP_DIAS 71; PULSE 58; PULSE 72; TEMP 36.6
[2016-10-08] MEDS: DOCUSATE SODIUM 100 MG CAP PO SCH ×2 (08:43→21:23)
[2016-10-08] MEDS: CLONIDINE HCL 0.1 MG TAB PO SCH ×2 (08:43→21:22)
[2016-10-08] MEDS: GABAPENTIN 100 MG CAP PO SCH ×2 (08:43→21:23)
[2016-10-08 08:45] VITALS: BP 126/75; PULSE 73
[2016-10-08] MEDS: NICOTINE 21 MG/24 HR TDSY TD SCH (09:10)
--- NOTE | 2016-10-08 11:31 | Psychiatric Progress Notes ---
Progress Note Date of Service Oct 08, 2016. Interval History 71 yo man with schizophrenia, admitted with ongoing reports of a ringing in his ear, and suicidality, having by report attempted to hang himself with a rope. He was admitted voluntarily on 10/05 Chief Complaint "I feel good today". Subjective Patient was seen & assessed interval progress reviewed with Treatment Team. Staff report he is going to groups, and continues to report ringing in his ear. He is doing his own ADLs, and is eating and sleeping adequately. He is taking Seroquel, but declined further increases in the dose. Today he says that "Seroquel makes me feel fuzzy" and he has significant difficulty further describing this, stating "in my head, like I'm not in control." He denies feeling confused, tired, slowed, unsteady, and says "I can't describe it, just fuzzy." He states that his sleep has been "real good," which she attributes to the ringing in his ears stopping at night. He denies suicidal thoughts today, and states that he was having suicidal thoughts prior to admission because he wasn't sleeping because of the ringing. He says "one in 8 people with tinnitus commit suicide, so it's just a matter of how long I can stand it." He is unable to review his safety plan or healthy ways he could cope outside of the hospital, saying that if suicidal thoughts returned after discharge, he would "have to weigh my options." He says he wants to continue seeing his current psychiatric prescriber at [place], but then starts talking about his plans to morgan her, stating "she is not a board certified psychiatrist and she makes bad decisions." He links this to a discussion he had with the inpatient psychiatrist over the weekend, and then refers to her as "the GP" who supervises his outpatient psychiatrist. When asked to explain the connection he seems to be making between the 2 physicians, he says "she knew the law on her." When concerns were expressed about his plan to follow-up with a medical professional whom he also states he is planning to morgan, he says this won't be a problem because he still has to research his lawsuit." Sleep Information Total Hours of Sleep: 6.50 Meal Information Percent of Breakfast Consumed: 100 Percent of Lunch Consumed: 100 Percent of Dinner Consumed: 75 Mental Status Exam During interview pt is: alert and oriented, cooperative Appearance: appropriately dressed, appropriately groomed Eye contact is: good Motor behavior is: steady gait & station, no abnormal motor movements Speech: normal in rate, rhythm & volume Affect: flat (and not mood congruent) Mood is: other ("I feel good today.") Thought process: goal directed Thought content: preoccupation (with ringing in his ear that could be delusional) Suicidal thought are: denied Homicidal thoughts are: denied Hallucinations: auditory (ear ringing, denies voices) Cognition: memory grossly intact, attention grossly intact Intelligence estimated to be: average Insight: impaired Judgement: impaired Impression [facility] has confirmed that he is able to return. Continued Inpatient Care Requires inpatient care due to the severity of his condition and the risk for self harm if discharged. Plan (1) paranoid schizophrenia 10/04 per RUBI Sullivan - Increase Seroquel to 150 mg. - Decrease Zyprexa to 15 mg. HS - Coordinate with [facility] and arrange meeting - Q 15 min checks for safety - Encourage participation in group and individual counseling - Will need to determine if the patient will be returning to [facility] or back to Dr. Alves - Monitoring labs for atypicals completed 10/04, and WNL 10/05--continue cross taper to Seroquel. Zyprexa 10 mg this hs with 200 mg seroquel then d/c Zyprexa and increase Seroquel to 300 mg starting 10/06. 10/06--hold further titration of Seroquel. Will continue 200 mg this hs and administration manager provider to determine if able to titrate 10/07. 10/07--hold seroquel at 200mg due to feeling of cloudy headedness, will give time to adjust, stop ambien due to risk of cognitive impairment and as he states it does not work, increase his gabapentin from 100mg po tid, to 200mg po bid (he requests bid dosing as socially it requires him to be at [facility] mid day) and target is off label for anxiety and need to watch cognition and sedation 10/08--appears more disorganized and paranoid in his thinking today, but unwilling to increase quetiapine dose. Discharge / Aftercare Planning Psychiatrist: Name: [facility] Therapist: Name: does not want Loss Prevention Analyst: Name: Shruti rhoades showcase maker and goal manager nuclear Visit Code E&M Code: 18049 Inventory Assets Strengths: Intelligence, willingness to engage in treatment Needs: Insight Risk Factors Assessment Male: Yes : Yes /single/: Yes Higher / Fall in social status: No Access to guns: No Health problems: No Mental Health Diagnoses: Yes Substance use disorders: Yes Previous attempt: Yes Previous psychiatric stay: Yes Protective Factors Assessment Mandaen beliefs: No : No Responsible for young children: No Employed: No Stable relationships: No Supportive family: No Good rapport with provider: No Data Vital Signs Last 24 Hrs: Date Time Temp Pulse Resp B/P Pulse Ox O2 Delivery O2 Flow Rate FiO2 10/08/16 08:45 73 126/75 10/08/16 06:56 36.6 58 16 115/71 72 98/68 10/07/16 22:03 76 131/83 Meds Administered Last 24 Hrs: Meds Administered (Past 24Hrs) Medications (Trade) Dose Ordered Sig/Gabe Route Start Time Stop Time Status Last Admin Dose Admin Docusate Sodium (coLACE CAP) 100 mg BID PO 10/06/16 22:00 11/05/16 21:59 10/08/16 08:43 100 MG Docusate Sodium (coLACE CAP) 100 mg 1200 ONCE PO 10/06/16 12:00 10/06/16 12:01 DC 10/06/16 12:37 100 MG Gabapentin (Neurontin Cap) 200 mg BID@0900,2200 PO 10/07/16 22:00 11/06/16 21:59 10/08/16 08:43 200 MG
[2016-10-08] MEDS: OMEGA-3 (PURIFIED FISH OIL) 1 GM CAP PO SCH (21:23)
[2016-10-08] MEDS: QUETIAPINE FUMARATE 200 MG TAB PO SCH (21:23)
[2016-10-08] MEDS: FoLIC ACID TAB 400 MCG TAB PO SCH (21:23)
[2016-10-09 06:49] VITALS: BP_SYST 114; BP_SYST 97; BP_DIAS 61; BP_DIAS 73; PULSE 67; PULSE 75; TEMP 36.8
[2016-10-09] MEDS: DOCUSATE SODIUM 100 MG CAP PO SCH (08:30)
[2016-10-09] MEDS: CLONIDINE HCL 0.1 MG TAB PO SCH ×2 (08:30→08:51)
[2016-10-09] MEDS: GABAPENTIN 100 MG CAP PO SCH (08:30)
[2016-10-09] MEDS: NICOTINE 21 MG/24 HR TDSY TD SCH (08:30)
[2016-10-09 08:34] VITALS: BP 114/78; PULSE 94
[2016-10-09] MEDS ORDERED: SRQ200 PO (09:12)
[2016-10-09] MEDS ORDERED: GABA-112 PO (09:12)
--- NOTE | 2016-10-09 09:21 | Discharge Instructions ---
Discharge Information Report Includes Report will include the: Discharge Instructions & Summary Admission Admission Date / Time: Oct 02, 2016 at 17:26 Reason for Admission: Schizophrenia Discharge Discharge Diagnosis / Problem: Paranoid schizophrenia Condition at Discharge: Fair Discharge Goals Goal(s): Decrease discomfort, Improve disease control, Prevent Disease Progression Activity Recommendations Activity Limitations: resume your previous activity . Instructions / Follow-Up Instructions / Follow-Up . SPECIAL CARE INSTRUCTIONS: 1. Follow through with your scheduled aftercare appointments. If unable to keep an appointment, please call to reschedule. 2. Take your medication only as prescribed. Medication should not be changed or stopped without the approval of your doctor. In the event of worsening symptoms or concerns about side effects, contact your doctor immediately. 3. Utilize new healthy coping skills, anger management skills, and stress management skills learned during your hospitalization. Journal feelings and process them with a support person. Identify stressors or situations that may result in relapse, deterioration or inappropriate behaviors and develop a plan to deal with those issues. 4. If your coping skills are ineffective and you are in crisis, contact your outpatient providers for direction. If unable to reach your providers, please call the CAN HELP LINE AT or go to the closest Emergency Room. 5. Avoid alcohol and un-prescribed drugs. 6. You have been provided with the Mental Health Advance Directives Pamphlet for your review. AFTERCARE APPOINTMENTS: * Please call your insurance company prior to your scheduled appointment to confirm your aftercare providers are covered. Take your insurance information to your appointments. . Discharge / Aftercare Planning Psychiatrist: Name: Rosa M Parker Date of Appointment: Oct 30, 2016 Time of Appointment: 914 Therapist: Name Of Therapist: does not want Car Pusher: Name: Shruti rhoades shelter case manager and goal university manager . Follow-Up Care Plan for Follow-Up Care: The patient will return to see Rosa M DALTON at [place] Current Hospital Diet Patient's current hospital diet: Vegetarian Diet Discharge Diet Recommended Diet: Vegetarian Diet Procedures Procedures Performed: No Pending Studies Pending Studies at Discharge: No Medical Emergencies . Who to Call and When: Medical Emergencies: For questions or emergencies related to your hospital stay, please contact the Inpatient Behavioral Health Unit at [phone]. A poultry inspector is on-call 11/03 for the Behavioral Health Unit for emergencies At any time you feel your situation is an emergency, you may also call 911 immediately. . Non-Emergent Contact Non-Emergency issues call your: Primary Care Provider, Psychiatrist, Therapist Advance Directives Existing Advance Directive: No Do You Have an Existing Mental: No Existing Living Will: No Existing Power of Protohistorian: No Advance Directives Info Given: To Pt/S.O. Discharge Summary Admission HPI Per the Admitting provider: Please see the attached H&P Hospital Course (1) paranoid schizophrenia 10/04 per RUBI Sullivan - Increase Seroquel to 150 mg. - Decrease Zyprexa to 15 mg. HS - Coordinate with [facility] and arrange meeting - Q 15 min checks for safety - Encourage participation in group and individual counseling - Will need to determine if the patient will be returning to Rosa M DALTON or back to Dr. Alves - Monitoring labs for atypicals completed 10/04, and WNL 10/05--continue cross taper to Seroquel. Zyprexa 10 mg this hs with 200 mg seroquel then d/c Zyprexa and increase Seroquel to 300 mg starting 10/06. 10/06--hold further titration of Seroquel. Will continue 200 mg this hs and cash controller provider to determine if able to titrate 10/07. 10/07--hold seroquel at 200mg due to feeling of cloudy headedness, will give time to adjust, stop ambien due to risk of cognitive impairment and as he states it does not work, increase his gabapentin from 100mg po tid, to 200mg po bid (he requests bid dosing as socially it requires him to be at [facility] mid day) and target is off label for anxiety and need to watch cognition and sedation 10/08--appears more disorganized and paranoid in his thinking today, but unwilling to increase quetiapine dose. Risk Factors Assessment Male: Yes : Yes /single/: Yes Higher / Fall in social status: No Access to guns: No Health problems: No Mental Health Diagnoses: Yes Substance use disorders: Yes Previous attempt: Yes Previous psychiatric stay: Yes Protective Factors Assessment Lutheran beliefs: No : No Responsible for young children: No Employed: No Stable relationships: No Supportive family: No Good rapport with provider: No Day of Discharge Assessment COURSE OF HOSPITALIZATION: During the patient's 7 day stay, medications were adjusted including discontinuation of Zyprexa in favor of Seroquel getting to 200 mg at bedtime. Patient was admitted with the same complaints of ringing and buzzing in his right ear. In previous times he had reported that he had a transmitter in his head causing his problems. He has ceased to report those denied auditory hallucinations but continued to report the buzzing that he said causes hip pain and right side of the space. He has chronic requests for Valium which have been denied by all of his providers. He has a his has a history of abusing Valium at one point having a hospitalization in which she was so obtunded he found his head. He was switched to Seroquel in hopes that the sedating component of Seroquel provide the same calming effect as Valium. Unfortunately, he did not want to escalate the dose higher than 200 mg due to feeling somewhat cloudy. Meeting was held with the staff from the [facility] in which he lives. They want check to return to their facility when he is medically cleared and without suicidality. Although there was no return of voices in the transition to the new medication, he did have another aunt ideation, as patient chills, believing that she was practicing illegally. These are themes that have popped up in the past regarding other providers as well. He denied any suicidal thinking throughout his stay although at one point did conditionally say that if he could not get relief that suicide would be an option. He was cooperative with programming, in good behavioral control as is always the case with Jamie. DAY OF DISCHARGE ASSESSMENT: The patient is requesting discharge. He continues to refuse to escalate the Seroquel any further. He denies suicidal thoughts today. He continues to have odd thinking about his outpatient provider but agrees that going back to her as a better choice than returning to his old provider. He denies auditory or visual hallucinations but continues to report buzzing in his right ear, disturbing his sleep. Today he is casually and appropriately dressed and groomed. Eye contact is good. Affect is flat. Gait and station are within normal limits. Speech is of normal rate volume and tone. Thoughts are organized and goal-directed. Recent and remote memory are intact per conversation. Intelligence is estimated to be average. Insight and judgment are improved over admission. Laboratory 10/02/16 15:32 10/02/16 15:32 Test 10/02/16 15:00 10/02/16 15:32 10/04/16 07:07 Urine Color YELLOW Urine Appearance CLOUDY (CLEAR) Urine pH 8.0 (4.5-7.5) Urine Specific [place] 1.012 (1.000-1.030) Urine Protein NEG (NEG) Urine Glucose (UA) NEG (NEG) Urine Ketones NEG (NEG) Urine Occult Blood TRACE (NEG) Urine Nitrite NEG (NEG) Urine Bilirubin NEG (NEG) Urine Urobilinogen NEG (NEG) Urine Leukocyte Esterase NEG (NEG) Urine WBC (Auto) 0 /hpf (0-5) Urine RBC (Auto) 5-10 /hpf (0-4) Urine Hyaline Casts (Auto) 0 /lpf (0-5) Urine Epithelial Cells (Auto) 0-5 /lpf (0-5) Urine Bacteria (Auto) NEG (NEG) Urine Opiates Screen NEG (NEG) Urine Methadone, Qualitative NEG (NEG) Urine Barbiturates NEG (NEG) Urine Phencyclidine (PCP) Level NEG (NEG) Ur Amphetamine/Methamphetamine NEG (NEG) MDMA (Ecstasy) Screen NEG (NEG) Urine Benzodiazepines Screen NEG (NEG) Urine Cocaine Metabolite NEG (NEG) Urine Marijuana (THC) NEG (NEG) Red Blood Count 4.86 M/uL (4.7-6.1) Mean Corpuscular Volume 90.5 fL (80-100) Mean Corpuscular Hemoglobin 31.7 pg (25-34) Mean Corpuscular Hemoglobin Concent 35.0 g/dl (32-36) RDW Standard Deviation 43.6 fL (36.4-46.3) RDW Coefficient of Variation 13.2 % (11.5-14.5) Mean Platelet Volume 8.6 fL (7.4-10.4) Anion Gap 12.0 mmol/L (3-11) Est Creatinine Clear Calc Drug Dose 80.1 ml/min Estimated GFR () 103.3 Estimated GFR (Non- 89.2 BUN/Creatinine Ratio 23.9 (10-20) Calcium Level 9.0 mg/dl (8.5-10.1) Total Bilirubin 0.6 mg/dl (0.2-1) Aspartate Amino Transf (AST/SGOT) 16 U/L (15-37) Alanine Aminotransferase (ALT/SGPT) 28 U/L (12-78) Alkaline Phosphatase 90 U/L (45-117) Total Protein 7.7 gm/dl (6.4-8.2) Albumin 3.7 gm/dl (3.4-5.0) Globulin 4.0 gm/dl (2.5-4.0) Albumin/Globulin Ratio 0.9 (0.9-2) Thyroid Stimulating Hormone (TSH) 2.680 uIu/ml (0.300-4.500) Salicylates Level < 1.7 mg/dl (2.8-20) Acetaminophen Level < 2 ug/ml (10-30) Ethyl Alcohol mg/dL < 3.0 mg/dl (0-3) Rickettsia IgG Ab ([facility] Fever) Not Detected (Not Detected) Rickettsia IgM Ab ([facility] Fever) Not Detected (Not Detected) Fasting Glucose 91 mg/dl (70-99) Triglycerides Level 54 mg/dl (0-150) Cholesterol Level 154 mg/dl (0-200) HDL Cholesterol 59 mg/dl LDL Cholesterol, Calculated 84 mg/dl VLDL Cholesterol, Calculated 11 mg/dl Cholesterol/HDL Ratio 2.6 Total Time Total Time Included: examination of the patient, discharge planning, medication reconciliation, communication with other providers Tobacco Cessation at Discharge FDA approved Prescription: patient refused
== END 2016-10-09 14:47 | disposition home or self-care (01) | DRG 885 ==
LOC: ENRESERVTM → ENRESERVDT → C.EDB 14:41 → C.MHU 17:26
PROVIDERS: ADMIT Psychiatry & Neurology Child & Adolescent Psychiatry; ATTEND Psychiatry & Neurology Psychiatry
DX: F20.0 Paranoid schizophrenia (principal); R45.851 Suicidal ideations; F17.200 Nicotine dependence, unspecified, uncomplicated; I10 Essential (primary) hypertension; Z81.8 Family history of other mental and behavioral disorders

== ENCOUNTER 2017-05-30 15:07 | Emergency (ER) | payer OTHER ==
[~2017-05-30] VITALS: Ht 172.7 cm; Wt 71.8 kg
[~2017-05-30 15:07] MED LIST changes: +CTP/1 PO; -FLV1 PO; +FLV400 PO; -OLAN1TAB5 PO; -PYR50 PO; +SRQ200 PO; -VTMB12100 PO; -VTMD1000 PO; -ZOLP10TA PO
[2017-05-30 15:11] VITALS: TEMP 36.8; Ht 172.7 cm; Wt 71.8 kg
[2017-05-30] MEDS ORDERED: ZOLP10TA6 PO (15:29)
[2017-05-30] MEDS ORDERED: NRN100 PO (15:29)
[2017-05-30] MEDS ORDERED: ZYP5 PO (15:29)
[2017-05-30 15:50] LABS: BASO % 0.4 %; BASO ABS # 0.03 K/uL (0-0.2); COMPLETE YES; EOS % 4.5 %; HEMATOCRIT 45.8 % (42-52); IG% 0.2 %; LYMPH % 25.2 %; LYMPH ABS # 2.14 K/uL (1.2-3.4); MEAN CELL VOLUME 91.1 fL (80-100); MEAN CORPUSCULAR HEMOGLOBIN 31.6 pg (25-34); MEAN CORPUSCULAR HGB CONC 34.7 g/dl (32-36); MEAN PLATELET VOLUME 8.8 fL (7.4-10.4); MONO % 12.9 %; NEUT % 56.8 %; PLATELET COUNT 314 K/uL (130-400); RED BLOOD COUNT 5.03 M/uL (4.7-6.1); WHITE BLOOD COUNT 8.48 K/uL (4.8-10.8)
[2017-05-30 15:59] LABS: URINE APPEARANCE CLEAR (CLEAR); URINE BILIRUBIN NEG (NEG); URINE COLOR YELLOW; URINE EPITHELIAL CELL AUTO 0-5 /lpf (0-5); URINE NITRITE NEG (NEG); URINE PH 7.5 (4.5-7.5); URINE SPECIFIC GRAVITY 1.019 (1.000-1.030); UROBILINOGEN NEG (NEG)
[2017-05-30 16:02] LABS: MANUAL MICROSCOPIC REQUIRED? NO; REVIEW REQ? NO
[2017-05-30 16:28] LABS: BENZODIAZEPINE, URINE NEG (NEG); COCAINE,URINE NEG (NEG); PHENCYCLIDINE, URINE NEG (NEG)
[2017-05-30 16:37] LABS: BUN/CREATININE RATIO 17.9 (10-20); CALCIUM 8.9 mg/dl (8.5-10.1); CREATININE 0.79 mg/dl (0.60-1.40); POTASSIUM 3.9 mmol/L (3.5-5.1); THYROID STIMULATING HORMONE 2.04 uIu/ml (0.300-4.500)
--- NOTE | 2017-05-30 19:08 | DIAGNOSTIC IMAGING REPORT ---
HEAD WITHOUT CONTRAST (CT) CLINICAL HISTORY: 72 years-old Male presenting with buzzing in head. TECHNIQUE: Multidetector CT imaging of the head was performed without the use of intravenous contrast. IV contrast: None. A dose lowering technique was used consistent with the principles of ALARA (as low as reasonably achievable). COMPARISON: 03/16/2016. CT DOSE (mGy.cm): The estimated cumulative dose is 614.27 mGy.cm. FINDINGS: Shrimp Packer topogram: Unremarkable. Ventricles and sulci normal in size. Brain parenchyma normal in appearance with preserved magaña-white differentiation. No mass effect or midline shift. No hemorrhage or acute territorial infarct. No extra-axial fluid collection. Paranasal sinuses and mastoid air cells clear. Calvarium intact. IMPRESSION: 1. No acute intracranial pathology. Electronically signed by: Kerwin Arellano M.D. 05/30/2017 7:06 PM Dictated Date/Time: 05/30/2017 7:00 PM
--- NOTE | 2017-05-30 19:52 | EMERGENCY ROOM VISIT NOTE ---
History Report prepared by Len: Eliud Constantino Under the Supervision of: Dr. Seth Angela D.O. First contact with patient: 15:13 Chief Complaint: MENTAL HEALTH EVALUATION Stated Complaint: LOUD NOISE RIGHT SIDE OF HEAD, VOICES History of Present Illness The patient is a 72 year old male who presents to the Emergency Room for a mental health evaluation. The patient has a history of auditory hallucinations for the past 5 years. He states that he constantly hears them and they can be loud or quiet, depending on the hour. He states that the voices want to kill him. They do not tell him to kill himself or hurt other people. He also hears a buzzing noise on the right side of his head. The voices and the buzzing are completely independent of one another. He does note that both have worsened over the past year. They have become louder. Today, they have become even more loud. Because of this, he is having a difficult time sleeping. Nothing makes these noises better or worse. He was evaluated for this in the past with CT scans and in patient therapy as well. His CT scan on 03/16/2016 and MRI on 2013 were both unremarkable. He states that he is currently very anxious because of the hallucinations. He denies any suicidal ideation or homicidal ideation. He says that "he does not know what will happen tonight." He believes that they will torture him. He currently takes Xanax, Ambien, and Neurontin. He notes that he could never get an appointment with ENT. Physically, he is more generally weak today. He denies any change in vision, trouble swallowing, or any numbness. He says that he has not been eating enough. He sees a psychiatrist once a month. Source of History: patient Onset: 5 years ago Position: other (Mental Health) Symptom Intensity: moderate Quality: other (Auditory Hallucinations) Timing: worsening Associated Symptoms: + weakness (General), No numbness Note: He denies any visual changes, trouble swallowing, SI, or HI. Review of Systems See HPI for pertinent positives & negatives. A total of 10 systems reviewed and were otherwise negative. Past Medical & Surgical Medical Problems: (1) Benzodiazepine abuse (2) Depression (3) Hypertension (4) Noncompliance (5) past psych meds (6) past psycy meds (7) Schizophrenia (8) Tobacco use disorder Family History FH: schizophrenia Social History Smoking Status: Current Every Day Smoker Alcohol Use: none Drug Use: none Marital Status: single Housing Status: lives with roommate Occupation Status: disabled, other Current/Historical Medications Scheduled Clonidine Hcl (Catapres), 0.1 MG PO BID Fish Oil (Fish Oil), 2 GM PO HS Gabapentin (Gabapentin), 100 MG PO BID Olanzapine (Olanzapine), 5 MG PO HS Zolpidem Tartrate (Zolpidem Tartrate), 10 MG PO HS Allergies Coded Allergies: No Known Allergies (Unverified , 05/30/17) Physical Exam Vital Signs Date Time Temp Pulse Resp B/P (MAP) Pulse Ox O2 Delivery O2 Flow Rate FiO2 05/30/17 20:07 69 18 124/74 95 Room Air 05/30/17 17:54 75 20 121/73 96 Room Air 05/30/17 15:11 36.8 81 18 128/77 96 Room Air Physical Exam GENERAL: Sitting up in bed, alert, well appearing, well nourished, no distress, non-toxic EYE EXAM: normal conjunctiva, PERRL and EOM's intact OROPHARYNX: no exudate, no erythema, lips, buccal mucosa, and tongue normal and mucous membranes are moist NECK: supple, no nuchal rigidity, no adenopathy, non-tender LUNGS: Clear to auscultation. Normal chest wall mechanics HEART: no murmurs, S1 normal and S2 normal ABDOMEN: abdomen soft, non-tender, normo-active bowel sounds, no masses, no rebound or guarding. BACK: Back is symmetrical on inspection and there is no deformity, no midline tenderness, no CVA tenderness. SKIN: no rashes and no bruising UPPER EXTREMITIES: upper extremities are grossly normal. LOWER EXTREMITIES: No pitting edema. NEURO EXAM: Normal sensorium, cranial nerves II-XII intact, normal speech, no weakness of arms, no weakness of legs. No drift. Finger to nose intact. Gross sensation intact. Rapid alternating movements of UE's intact. PSYCH EXAM: Admits to auditory hallucinations. Denies any SI or HI. Medical Decision & Procedures ER Provider Diagnostic Interpretation: Radiology results as stated below per my review and the radiologist's interpretation: HEAD WITHOUT CONTRAST (CT) CLINICAL HISTORY: 72 years-old Male presenting with buzzing in head. TECHNIQUE: Multidetector CT imaging of the head was performed without the use of intravenous contrast. IV contrast: None. A dose lowering technique was used consistent with the principles of ALARA (as low as reasonably achievable). COMPARISON: 03/16/2016. CT DOSE (mGy.cm): The estimated cumulative dose is 614.27 mGy.cm. FINDINGS: Medical Office Technologist topogram: Unremarkable. Ventricles and sulci normal in size. Brain parenchyma normal in appearance with preserved magaña-white differentiation. No mass effect or midline shift. No hemorrhage or acute territorial infarct. No extra-axial fluid collection. Paranasal sinuses and mastoid air cells clear. Calvarium intact. IMPRESSION: 1. No acute intracranial pathology. Electronically signed by: Kerwin Arellano M.D. 05/30/2017 7:06 PM Dictated Date/Time: 05/30/2017 7:00 PM Laboratory Results 05/30/17 15:32 Red Blood Count 5.03, Mean Corpuscular Volume 91.1, Mean Corpuscular Hemoglobin 31.6, Mean Corpuscular Hemoglobin Concent 34.7, Mean Platelet Volume 8.8, Neutrophils (%) (Auto) 56.8, Lymphocytes (%) (Auto) 25.2, Monocytes (%) (Auto) 12.9, Eosinophils (%) (Auto) 4.5, Basophils (%) (Auto) 0.4, Neutrophils # (Auto ) 4.82, Lymphocytes # (Auto) 2.14, Monocytes # (Auto) 1.09, Eosinophils # (Auto ) 0.38, Basophils # (Auto) 0.03 05/30/17 15:32 Test 05/30/17 15:32 05/30/17 15:34 White Blood Count 8.48 K/uL (4.8-10.8) Red Blood Count 5.03 M/uL (4.7-6.1) Hemoglobin 15.9 g/dL (14.0-18.0) Hematocrit 45.8 % (42-52) Mean Corpuscular Volume 91.1 fL (80-100) Mean Corpuscular Hemoglobin 31.6 pg (25-34) Mean Corpuscular Hemoglobin Concent 34.7 g/dl (32-36) Platelet Count 314 K/uL (130-400) Mean Platelet Volume 8.8 fL (7.4-10.4) Neutrophils (%) (Auto) 56.8 % Lymphocytes (%) (Auto) 25.2 % Monocytes (%) (Auto) 12.9 % Eosinophils (%) (Auto) 4.5 % Basophils (%) (Auto) 0.4 % Neutrophils # (Auto) 4.82 K/uL (1.4-6.5) Lymphocytes # (Auto) 2.14 K/uL (1.2-3.4) Monocytes # (Auto) 1.09 K/uL (0.11-0.59) Eosinophils # (Auto) 0.38 K/uL (0-0.5) Basophils # (Auto) 0.03 K/uL (0-0.2) RDW Standard Deviation 42.3 fL (36.4-46.3) RDW Coefficient of Variation 12.8 % (11.5-14.5) Immature Granulocyte % (Auto) 0.2 % Immature Granulocyte # (Auto) 0.02 K/uL (0.00-0.02) Anion Gap 7.0 mmol/L (3-11) Est Creatinine Clear Calc Drug Dose 83.0 ml/min Estimated GFR () 104.7 Estimated GFR (Non- 90.3 BUN/Creatinine Ratio 17.9 (10-20) Calcium Level 8.9 mg/dl (8.5-10.1) Total Bilirubin 0.5 mg/dl (0.2-1) Direct Bilirubin 0.1 mg/dl (0-0.2) Aspartate Amino Transf (AST/SGOT) 15 U/L (15-37) Alanine Aminotransferase (ALT/SGPT) 27 U/L (12-78) Alkaline Phosphatase 104 U/L (45-117) Total Protein 7.9 gm/dl (6.4-8.2) Albumin 3.8 gm/dl (3.4-5.0) Thyroid Stimulating Hormone (TSH) 2.040 uIu/ml (0.300-4.500) Ethyl Alcohol mg/dL < 3.0 mg/dl (0-3) Urine Color YELLOW Urine Appearance CLEAR (CLEAR) Urine pH 7.5 (4.5-7.5) Urine Specific [place] 1.019 (1.000-1.030) Urine Protein NEG (NEG) Urine Glucose (UA) NEG (NEG) Urine Ketones NEG (NEG) Urine Occult Blood TRACE (NEG) Urine Nitrite NEG (NEG) Urine Bilirubin NEG (NEG) Urine Urobilinogen NEG (NEG) Urine Leukocyte Esterase NEG (NEG) Urine WBC (Auto) 1-5 /hpf (0-5) Urine RBC (Auto) 0-4 /hpf (0-4) Urine Hyaline Casts (Auto) 0 /lpf (0-5) Urine Epithelial Cells (Auto) 0-5 /lpf (0-5) Urine Bacteria (Auto) NEG (NEG) Urine Opiates Screen NEG (NEG) Urine Methadone, Qualitative NEG (NEG) Urine Barbiturates NEG (NEG) Urine Phencyclidine (PCP) Level NEG (NEG) Ur Amphetamine/Methamphetamine NEG (NEG) MDMA (Ecstasy) Screen NEG (NEG) Urine Benzodiazepines Screen NEG (NEG) Urine Cocaine Metabolite NEG (NEG) Urine Marijuana (THC) NEG (NEG) Laboratory results per my review. ED Course ED COURSE: Vital signs were reviewed and showed normal vitals. The patients medical record was reviewed The above diagnostic studies were performed and reviewed. ED treatments and interventions as stated above. 1513: The patient was evaluated in room A6. A complete history and physical examination was performed. 2100: Upon reevaluation, the patient is resting. I discussed my findings with the patient and he understands and agrees with the treatment plan. Based on the patients age, coexisting illnesses, exam and lab findings the decision to treat as an inpatient was made. The patient remained stable while under my care. The patient will be transferred to [facility] to be evaluated for further mental health inpatient management. Medical Decision Differential diagnosis: Etiologies such as mood disorder, infection, hypoglycemia, electrolyte abnormalities, cardiac sources, intracerebral event, toxicologic, neurologic, as well as others were entertained. Patient is a 72-year-old male who presents to ER for a range on the right side of his head associated with hearing voices. He notes these have gotten significantly worse recently. He notes he does not feel safe at home. The voice telling him that they are going to hurt him. He denies any suicidal or homicidal ideations. CBC on BMP, LFTs, bilirubin and TSH is unremarkable. Alcohol was negative. UA was negative. Patient is completely neurologically intact. CT head negative. Patient was evaluated by 3 S. accepted to [facility] and was medically stable. Medication Reconcilliation Current Medication List: was personally reviewed by me Blood Pressure Screening Patient's blood pressure: Normal blood pressure Blood pressure disposition: Did not require urgent referral Impression Primary Impression: Auditory hallucinations Scribe Attestation The scribe's documentation has been prepared under my direction and personally reviewed by me in its entirety. I confirm that the note above accurately reflects all work, treatment, procedures, and medical decision making performed by me. Departure Information Dispostion Mental Health Acute Care Referrals No Doctor, Assigned (PCP) Patient Instructions My [facility]
[2017-05-30 23:07] VITALS: BP 154/76; PULSE 74; O2SAT 95
== END 2017-05-30 23:09 ==
LOC: C.EDB 15:08 → C.EDA 23:09
DX: F20.9 Schizophrenia, unspecified (principal); Z79.899 Other long term (current) drug therapy; F32.9 Major depressive disorder, single episode, unspecified; I10 Essential (primary) hypertension; Z91.19 Patient's noncompliance with other medical treatment and regimen; F17.210 Nicotine dependence, cigarettes, uncomplicated

== ENCOUNTER 2017-11-11 08:39 | Emergency (ER) | payer OTHER ==
[~2017-11-11] VITALS: Ht 172.7 cm; Wt 71.4 kg
[~2017-11-11 08:39] MED LIST changes: -CTP/1 PO; -FLV400 PO; -GABA-112 PO; +NRN100 PO; -SRQ200 PO
[2017-11-11 08:41] VITALS: TEMP 37.1; Ht 172.7 cm; Wt 71.4 kg
[2017-11-11] MEDS ORDERED: OMEG10007 PO (09:10)
[2017-11-11] MEDS ORDERED: DONE5TAB9 PO (09:10)
[2017-11-11] MEDS ORDERED: MIRT30TA3 PO (09:10)
[2017-11-11 09:14] LABS: BASO % 0.7 %; BASO ABS # 0.04 K/uL (0-0.2); EOS % 4.7 %; EOS ABS # 0.28 K/uL (0-0.5); HEMATOCRIT 42.7 % (42-52); HEMOGLOBIN 14.8 g/dL (14.0-18.0); LYMPH % 11.5 %; LYMPH ABS # 0.69 K/uL (1.2-3.4); MEAN CELL VOLUME 91.8 fL (80-100); MEAN CORPUSCULAR HEMOGLOBIN 31.8 pg (25-34); MEAN CORPUSCULAR HGB CONC 34.7 g/dl (32-36); MEAN PLATELET VOLUME 8.9 fL (7.4-10.4); MONO % 11.8 %; MONO ABS # 0.71 K/uL (0.11-0.59); NEUT % 71.3 %; PLATELET COUNT 242 K/uL (130-400); RED CELL DISTRIBUTION WIDTH CV 13.4 % (11.5-14.5); WHITE BLOOD COUNT 6.02 K/uL (4.8-10.8)
[2017-11-11 09:40] LABS: ALBUMIN 3.5 gm/dl (3.4-5.0); CALCIUM 8.6 mg/dl (8.5-10.1); CREATININE 0.85 mg/dl (0.60-1.40); POTASSIUM 3.8 mmol/L (3.5-5.1)
[2017-11-11 09:47] LABS: TOTAL PROTEIN 7.2 gm/dl (6.4-8.2)
--- NOTE | 2017-11-11 12:33 | EMERGENCY ROOM VISIT NOTE ---
History Report prepared by Scribe: Akash Patterson Under the Supervision of: Dr. Zohaib Hull D.O. First contact with patient: 08:46 Chief Complaint: MENTAL HEALTH EVALUATION Stated Complaint: BUZZING SOUND IN HEAD, NO SLEEP, VOICES History of Present Illness The patient is a 72 year old male who presents to the Emergency Room with complaints of constant suicidal ideation beginning today. He has a history of schizophrenia and depression. The patient states that he has a plan to overdose on Tylenol. He states that he has been hearing a constant "buzzing" sound in his head. He states that he has also been hearing voices as well. The patient states that he has been hearing male and female voices (one female, three male) . He states that the voices have been expressing intents to harm him. He states that the voices told him they are outside the hospital and would kill him by heroin overdose. The patient notes that he has not slept for the past three days straight. He states that the buzzing sound is preventing him from sleeping. He has a history of auditory hallucinations. The patient has had three head CT's for auditory hallucinations in the past. He states that the hallucinations are in his head, and not in his ears. He denies recent alcohol or drug use. The patient admits to attempting suicide by aspirin overdose last year. Source of History: patient Onset: Today Quality: other (suicidal ideation) Timing: constant Note: Additional symptoms: auditory hallucinations. Review of Systems See HPI for pertinent positives & negatives. A total of 10 systems reviewed and were otherwise negative. Past Medical & Surgical Medical Problems: (1) Benzodiazepine abuse (2) Depression (3) Hypertension (4) Noncompliance (5) past psych meds (6) past psycy meds (7) Schizophrenia (8) Tobacco use disorder Family History FH: schizophrenia Social History Smoking Status: Former Smoker Alcohol Use: none Drug Use: none Marital Status: single Housing Status: lives with roommate Occupation Status: disabled, other Current/Historical Medications Scheduled Clonidine Hcl (Catapres), 0.1 MG PO BID Donepezil HCl (Aricept), 5 MG PO DAILY Fish Oil (Flushing-3), 2 CAP PO HS Mirtazapine (Remeron), 30 MG PO HS Olanzapine (Olanzapine), 5 MG PO HS Zolpidem Tartrate (Zolpidem Tartrate), 10 MG PO HS Allergies Coded Allergies: No Known Allergies (Unverified , 11/11/17) Physical Exam Vital Signs Date Time Temp Pulse Resp B/P (MAP) Pulse Ox O2 Delivery O2 Flow Rate FiO2 11/11/17 10:31 76 16 126/76 100 11/11/17 08:41 37.1 91 18 125/76 95 Room Air Physical Exam CONSTITUTIONAL/VITAL SIGNS: Reviewed / noted above. GENERAL: Non-toxic in appearance. INTEGUMENTARY: Warm, dry, and [place]. HEAD: Normocephalic. EYES: without scleral icterus or trauma. ENT/OROPHARYNX: clear and moist. LYMPHADENOPATHY/NECK: Is supple without lymphadenopathy or meningismus. RESPIRATORY: Lungs clear and equal. CARDIOVASCULAR: Regular rate and rhythm. GI/ABDOMEN: Soft and nontender. No organomegaly or pulsatile mass. No rebound or guarding. Normal bowel sounds. EXTREMITIES: Warm and well perfused. BACK: No CVA tenderness. NEUROLOGICAL: Intact without focal deficits. PSYCHIATRIC: normal affect. MUSCULOSKELETAL: Normally developed with good muscle tone. PSYCH: Reports being suicidal. Medical Decision & Procedures Laboratory Results 11/11/17 08:59 Red Blood Count 4.65, Mean Corpuscular Volume 91.8, Mean Corpuscular Hemoglobin 31.8, Mean Corpuscular Hemoglobin Concent 34.7, Mean Platelet Volume 8.9, Neutrophils (%) (Auto) 71.3, Lymphocytes (%) (Auto) 11.5, Monocytes (%) (Auto) 11.8, Eosinophils (%) (Auto) 4.7, Basophils (%) (Auto) 0.7, Neutrophils # (Auto ) 4.30, Lymphocytes # (Auto) 0.69, Monocytes # (Auto) 0.71, Eosinophils # (Auto ) 0.28, Basophils # (Auto) 0.04 11/11/17 08:59 Test 11/11/17 08:59 11/11/17 09:02 White Blood Count 6.02 K/uL (4.8-10.8) Red Blood Count 4.65 M/uL (4.7-6.1) Hemoglobin 14.8 g/dL (14.0-18.0) Hematocrit 42.7 % (42-52) Mean Corpuscular Volume 91.8 fL (80-100) Mean Corpuscular Hemoglobin 31.8 pg (25-34) Mean Corpuscular Hemoglobin Concent 34.7 g/dl (32-36) Platelet Count 242 K/uL (130-400) Mean Platelet Volume 8.9 fL (7.4-10.4) Neutrophils (%) (Auto) 71.3 % Lymphocytes (%) (Auto) 11.5 % Monocytes (%) (Auto) 11.8 % Eosinophils (%) (Auto) 4.7 % Basophils (%) (Auto) 0.7 % Neutrophils # (Auto) 4.30 K/uL (1.4-6.5) Lymphocytes # (Auto) 0.69 K/uL (1.2-3.4) Monocytes # (Auto) 0.71 K/uL (0.11-0.59) Eosinophils # (Auto) 0.28 K/uL (0-0.5) Basophils # (Auto) 0.04 K/uL (0-0.2) RDW Standard Deviation 44.0 fL (36.4-46.3) RDW Coefficient of Variation 13.4 % (11.5-14.5) Immature Granulocyte % (Auto) 0.0 % Immature Granulocyte # (Auto) 0.00 K/uL (0.00-0.02) Anion Gap 7.0 mmol/L (3-11) Est Creatinine Clear Calc Drug Dose 77.1 ml/min Estimated GFR () 101.6 Estimated GFR (Non- 87.7 BUN/Creatinine Ratio 17.0 (10-20) Calcium Level 8.6 mg/dl (8.5-10.1) Total Bilirubin 0.5 mg/dl (0.2-1) Aspartate Amino Transf (AST/SGOT) 17 U/L (15-37) Alanine Aminotransferase (ALT/SGPT) 28 U/L (12-78) Alkaline Phosphatase 106 U/L (45-117) Total Protein 7.2 gm/dl (6.4-8.2) Albumin 3.5 gm/dl (3.4-5.0) Globulin 3.7 gm/dl (2.5-4.0) Albumin/Globulin Ratio 0.9 (0.9-2) Thyroid Stimulating Hormone (TSH) 1.420 uIu/ml (0.300-4.500) Salicylates Level < 1.7 mg/dl (2.8-20) Acetaminophen Level < 2 ug/ml (10-30) Ethyl Alcohol mg/dL < 3.0 mg/dl (0-3) Urine Color DK YELLOW Urine Appearance CLEAR (CLEAR) Urine pH 8.0 (4.5-7.5) Urine Specific [place] 1.019 (1.000-1.030) Urine Protein NEG (NEG) Urine Glucose (UA) NEG (NEG) Urine Ketones TRACE (NEG) Urine Occult Blood 1+ (NEG) Urine Nitrite NEG (NEG) Urine Bilirubin NEG (NEG) Urine Urobilinogen NEG (NEG) Urine Leukocyte Esterase TRACE (NEG) Urine WBC (Auto) 1-5 /hpf (0-5) Urine RBC (Auto) 10-30 /hpf (0-4) Urine Hyaline Casts (Auto) 1-5 /lpf (0-5) Urine Epithelial Cells (Auto) 0-5 /lpf (0-5) Urine Bacteria (Auto) NEG (NEG) Urine Opiates Screen NEG (NEG) Urine Methadone, Qualitative NEG (NEG) Urine Barbiturates NEG (NEG) Urine Phencyclidine (PCP) Level NEG (NEG) Ur Amphetamine/Methamphetamine NEG (NEG) MDMA (Ecstasy) Screen NEG (NEG) Urine Benzodiazepines Screen NEG (NEG) Urine Cocaine Metabolite NEG (NEG) Urine Marijuana (THC) NEG (NEG) Laboratory results as stated above per my review. ED Course 0921: Previous medical records were reviewed. The patient was evaluated in room A5. A complete history and physical examination was performed. 1150: I spoke with the pillowcase turner. The patient has been accepted for transfer to the [facility]. Medical Decision differential includes toxic ingestions, self-mutilation, suicidal ideation, suicide attempt, depression. The patient presents with a chief complaint of hearing voices that tell him that they are going to kill him. He is also feeling suicidal and is thinking of overdosing on Tylenol. The patient states that there are 4 voices in his head. One female in 3 male. They state that they are going to overdose him on heroin. The patient states that he has not slept well for the past 3 days. He is feeling depressed. His vital signs are normal. His physical exam was unremarkable. A CBC and complete metabolic panel were normal, TSH was normal, urine showed 1+ blood but no infection. Tox screen and alcohol are negative. The patient was felt to be medically cleared. He has been accepted at [facility] for psychiatric evaluation. Medication Reconcilliation Current Medication List: was personally reviewed by me Blood Pressure Screening Patient's blood pressure: Normal blood pressure Blood pressure disposition: Did not require urgent referral Impression Primary Impression: Suicidal ideation Additional Impression: Schizophrenia Scribe Attestation The scribe's documentation has been prepared under my direction and personally reviewed by me in its entirety. I confirm that the note above accurately reflects all work, treatment, procedures, and medical decision making performed by me. Departure Information Dispostion Mental Health Acute Care Referrals Jeff Lopez M.D. (PCP) Patient Instructions My [facility] Problem Qualifiers
[2017-11-11 14:40] VITALS: BP 123/74; PULSE 79; O2SAT 97
[2017-11-11] MEDS ORDERED: ZYP5 PO (15:29)
[2017-11-11] MEDS ORDERED: ZOLP10TA6 PO (15:29)
[2017-11-11] MEDS ORDERED: CTP/1 PO (16:51)
== END 2017-11-11 14:45 ==
LOC: C.EDB 08:40 → C.EDA 14:45
DX: R45.851 Suicidal ideations (principal); F20.9 Schizophrenia, unspecified; F32.9 Major depressive disorder, single episode, unspecified; I10 Essential (primary) hypertension; Z87.898 Personal history of other specified conditions; Z87.891 Personal history of nicotine dependence; Z81.8 Family history of other mental and behavioral disorders

== ENCOUNTER 2019-02-23 14:04 | Inpatient (IN) ==
--- OUTSIDE RECORDS SUMMARY | 2019-02-23 14:10 | External Medical Summary | Continuity of Care Document ---
:1945 Author Name Anahy Helm, Provider Address Unavailable Unavailable , Care Team Providers Name Role Phone Claudio Olivia II, DO Unavailable [email or web address] [email or web address] Unavailable Unavailable Unavailable Unavailable Unavailable Problems Concussion (850.9) (S06.0X9A) Postconcussion syndrome (310.2) (F07.81) Paranoid schizophrenia (295.30) (F20.0) Asthma (493.90) (J45.909) Metabolic encephalopathy (348.31) (G93.41) Vertigo (780.4) (R42) Benign prostatic hypertrophy with urinary obstruction (600.0 1) (N40.1) Tinnitus (388.30) (H93.19) Sensorineural hearing loss (SNHL) of both ears (389.18) (H90 .3) Elevated prostate specific antigen (PSA) (790.93) (R97.20) Allergies and Adverse Reactions Abilify TABS (Allergy) Status: Denied Haldol SOLN (Allergy) Status: Denied RisperDAL TABS (Allergy) Status: Denied Thorazine SOLN (Allergy) Status: Denied Medications Docusate Sodium 100 MG Oral Capsule; TAKE 1 CAPSULE TWICE DA ABELINO. Refills: 0 Acetaminophen 325 MG Oral Tablet; TAKE 1 TO 2 TABLETS EVERY 4 HOURS NEEDED Refills: 0 Dulcolax 10 MG Rectal Suppository; USE DIRECTED. Refills: 0 Ibuprofen 200 MG Oral Tablet; TAKE 1 TABLET Every 6 hours WV N Refills: 0 Lactulose SOLN Refills: 0 Milk of Magnesia SUSP; USE DIRECTED. Refills: 0 Ondansetron HCl - 4 MG Oral Tablet; TAKE 1 TABLET Daily PRN Refills: 0 MiraLax Oral Packet Refills: 0 Senna 8.6 MG Oral Tablet; TAKE DIRECTED. Refills: 0 Fleet Enema ENEM Refills: 0 SUMAtriptan Succinate 25 MG Oral Tablet; TAKE TABLET PRN Refills: 0 Aricept 5 MG Oral Tablet Refills: 0 Lexapro 5 MG Oral Tablet Refills: 0 cloNIDine HCl - 0.1 MG Oral Tablet Refills: 0 Flexeril 5 MG TABS Refills: 0 clonazePAM 0.25 MG Oral Tablet Disintegrating Refills: 0 SEROquel 100 MG Oral Tablet Refills: 0 Fish Oil CAPS Refills: 0 Procedures History of Cystoscopy With Insertion Of Ureteral Stent Status: Completed Immunizations Immunizations not documented Family History Unknown Family Member Family history of Cancer Status: Active Comments: Famil y History Social History - Smoking Status Former smoker Never smoker Plan of Treatment Planned Observations Planned Goals not documented Results No Known Results Results not documented Encounters Appointment; Caro Jessica PA-C 20-Dec-2017 11:00 Encounter Diagnosis: Problem not documented Appointment; Dex Patton Au.D.|CCC-A 20-Dec-2017 10:40 Encounter Diagnosis: Problem not documented Appointment; Claudio Olivia II, DO 11-Feb-2019 14:40 Encounter Diagnosis: Problem not documented"
[2019-02-23 14:36] LABS: Appearance Urine Clear (Clear); Bilirubin Urine Negative (Negative); Blood Urine Trace (Negative); Color Urine Yellow; Glucose Urine UA Negative (Negative); Ketones Urine Trace (Negative); Leukocyte Esterase Urine Trace (Negative); Nitrite Urine Negative (Negative); Protein Urine Negative (Negative); Specific Gravity Urine 1.014 (1.000-1.030); Urobilinogen Urine Negative (Negative)
[2019-02-23 14:46] LABS: Bacteria Urine Negative (Negative); Epithelial Cell Urine 0-5 /lpf (0-5); RBC Urine 0-4 /hpf (0-4); WBC Urine 0-5 /hpf (0-5)
[2019-02-23 14:46] LABS: Basophils # (auto) 0.03 K/uL (0-0.2); Basophils % (auto) 0.3 %; Eosinophils # (auto) 0.13 K/uL (0-0.5); Eosinophils % (auto) 1.3 %; Hematocrit (blood only) 46.4 % (42-52); Hemoglobin 16.5 g/dL (14.0-18.0); Immature Granulocytes # (auto) 0.02 K/uL (0.00-0.02); Immature Granulocytes % (auto) 0.2 %; Lymphocytes # (auto) 1.12 K/uL (1.2-3.4); Mean Corpuscular Hemoglobin 33.4 pg (25-34); Mean Corpuscular Hgb Conc 35.6 g/dL (32-36); Mean Corpuscular Volume 93.9 fL (80-100); Monocytes # (auto) 1.15 K/uL (0.11-0.59); Monocytes % (auto) 11.3 %; Neutrophils # (auto) 7.73 K/uL (1.4-6.5); Neutrophils % (auto) 75.9 %; Platelet Count 270 K/uL (130-400); RDW Coefficient of Variation 13.6 % (11.5-14.5); RDW Standard Deviation 46.7 fL (36.4-46.3); Red Blood Count 4.94 M/uL (4.7-6.1); White Blood Count 10.18 K/uL (4.8-10.8)
[2019-02-23 15:35] LABS: Amphetamines+Metham, Urine Neg (Neg); Barbiturates, Urine Neg (Neg); Benzodiazepine, Urine Neg (Neg); Cocaine, Urine Neg (Neg); MDMA (Ecstacy), Urine Neg (Neg); Methadone, Urine Neg (Neg); Opiate, Urine Neg (Neg); Phencyclidine, Urine Neg (Neg)
[2019-02-23 15:39] LABS: Acetaminophen < 2 ug/ml (10-30); Alanine Aminotransferase 30 U/L (12-78); Albumin Level 3.7 gm/dl (3.4-5.0); Aspartate Aminotransferase 25 U/L (15-37); BUN Creatinine Ratio 19.7 (10-20); Blood Urea Nitrogen 15 mg/dl (7-18); Calcium 9.6 mg/dl (8.5-10.1); Carbon Dioxide 28 mmol/L (21-32); Chloride 105 mmol/L (98-107); Est GFR (African American) 104.5; Est GFR (Non-African American) 90.2; Potassium 3.7 mmol/L (3.5-5.1); Sodium 140 mmol/L (136-145)
[2019-02-23 15:44] LABS: Alkaline Phosphatase 102 U/L (45-117); Bilirubin,Total 0.6 mg/dl (0.2-1); Globulin 3.8 gm/dl (2.5-4.0); Total Protein 7.5 gm/dl (6.4-8.2)
[2019-02-23 15:50] LABS: Glucose 122 mg/dl (70-99)
--- NOTE | 2019-02-23 20:00 | Emergency Department Note ---
Entered by Chela Myles acting as a scribe for History of Present Illness General Chief complaint: Mental Health Evaluation Time Seen by Provider: 02/23/19 14:06 Source: patient History of Present Illness Provider complaint: mental health evaluation Onset (ago): hour(s) 3 Location: head Quality: + other (mental health evaluation) Associated symptoms: + denies other symptoms (suicidal ideation, homicidal ideation, visual hallucinations), + loss of appetite and + other (auditory hallucinations, no sleep in 7 days) Treatments prior to arrival: none The patient is a 73 year old white male w/ PMHx of tinnitus, schizophrenia, and paranoia who presents to the ED w/ CC of a mental health evaluation beginning 3 hours ago. The patient was lying in a dumpster prior to arrival and was brought in via police. The patient states that he has heard voices and noises in his head for the past 35 years. The patient notes that he has not taken his medication in 4 days, has not slept for 7 days and has not had a good appetite. The patient denies suicidal ideation, homicidal ideation, and visual hallucinations. The patient denies any treatment prior to arrival. Home Medications Home Medications Medication Instructions Recorded Confirmed Type clonidine HCl 0.1 mg PO HS 04/29/18 02/23/19 History donepezil [Aricept] 10 mg PO DAILY 04/29/18 02/23/19 History B Complex 1 tab PO DAILY 02/23/19 02/23/19 History Multi Vitamin 1 tab PO DAILY 02/23/19 02/23/19 History Xanax 0.5 mg PO UNKNOWN PRN 02/23/19 02/23/19 History benztropine 0.5 mg PO BID 02/23/19 02/23/19 History caffeine 200 mg PO DAILY 02/23/19 02/23/19 History cyanocobalamin (vitamin B-12) 500 mcg PO DAILY 02/23/19 02/23/19 History [Vitamin B-12] iodine 225 mg PO DAILY 02/23/19 02/23/19 History lorazepam [Ativan] 0.5 mg PO UNKNOWN PRN 02/23/19 02/23/19 History lutein 40 mg PO UNKNOWN 02/23/19 02/23/19 History magnesium 250 mg PO DAILY 02/23/19 02/23/19 History melatonin 10 mg PO HS 02/23/19 02/23/19 History olanzapine 20 mg PO HS 02/23/19 02/23/19 History pyridoxine (vitamin B6) [Vitamin 100 mg PO DAILY 02/23/19 02/23/19 History B-6] Allergies Allergy/AdvReac Type Severity Reaction Status Date / Time No Known Allergies Allergy Verified 02/23/19 16:32 Past Med/Surg History Medical History Schizophrenia (Chronic) Closed head injury (Acute) Scalp laceration (Acute) Rhabdomyolysis (Acute 07/21/13) Scalp laceration (Acute) Fall (Acute) Leukocytosis (Acute 08/14/13) Altered mental status (Acute) Dehydration (Acute) Thought disorder (Acute) Paranoia (Acute) Closed head injury (Acute) Scalp laceration (Acute) Altered mental status (Acute) Fall (Acute) Benzodiazepine abuse (Chronic) Hypertension Hypokalemia (Acute) Noncompliance (Chronic) Tobacco use disorder (Chronic) Family History Other No pertinent family history Social History Feels Safe at Home: Yes Smoking Status: Current every day smoker Tobacco Type: cigarettes Review of Systems See HPI for pertinent positives & negatives. and A total of 10 systems reviewed and were otherwise negative Physical Exam Vital Signs Vital Signs - 24 hr 02/23/19 14:14 02/23/19 17:46 02/23/19 19:46 Temperature 36.7 C Temperature Source Oral Sepsis Recent Fever Within 48 Hours No Sepsis Action Taken by Nursing No Action Required Pulse Rate 106 H Pulse Rate [Right Finger] 92 H 82 Pulse Rhythm [Right Finger] Regular Regular Respiratory Rate 18 20 18 Respiratory Effort / Characteristics Non-Labored Non-Labored Spontaneous Non-Labored Spontaneous Respiratory Depth Normal Normal Normal Respiratory Pattern Regular Blood Pressure 171/94 H Blood Pressure [Right Arm] 160/77 H 118/62 Blood Pressure Mean 119 Blood Pressure Mean [Right Arm] 104 80 Blood Pressure Position Lying Pulse Oximetry 96 99 98 Oxygen Delivery Method Room Air Room Air Room Air 02/23/19 23:18 02/24/19 08:10 Temperature Temperature Source Sepsis Recent Fever Within 48 Hours Sepsis Action Taken by Nursing Pulse Rate Pulse Rate [Right Finger] 84 110 H Pulse Rhythm [Right Finger] Respiratory Rate 18 20 Respiratory Effort / Characteristics Non-Labored Spontaneous Non-Labored Respiratory Depth Normal Normal Respiratory Pattern Blood Pressure Blood Pressure [Right Arm] 121/73 112/67 Blood Pressure Mean Blood Pressure Mean [Right Arm] 89 82 Blood Pressure Position Pulse Oximetry 99 96 Oxygen Delivery Method Room Air Room Air GENERAL: Well appearing, well nourished, NAD, non-toxic. EYE EXAM: Normal conjunctiva. PERRL, no anisocoria and EOM's grossly intact w/o pain. OROPHARYNX: No exudate, posterior pharynx is clear, no tonsillar/uvular deviation or swelling. NECK: Supple, no nuchal rigidity, no adenopathy, non-tender. no signs of meningismus. LUNGS: Clear to auscultation. Normal chest wall mechanics. HEART: NSR, no MRG. ABDOMEN: Abdomen soft, non-tender, normo-active bowel sounds, no masses, no rebound or guarding. BACK: No CVA TTP. SKIN: No rashes and no bruising. UPPER EXTREMITIES: Upper extremities are grossly normal. LOWER EXTREMITIES: No pitting edema. No calf pain. PSYCH: auditory hallucinations, no SI, no HI, no visual hallucinations. NEURO EXAM: Cranial nerves II-XII grossly intact, normal speech, 5/5 strength throughout, moves all 4 extremities on command w/o issue. Course 1410: Past medical records reviewed. The patient was evaluated in room A8. A complete history and physical exam was performed. 2021: Signed out at change of shift to Dr. [place]. Administered Medications Benztropine Mesylate (Cogentin) 0.5 mg PO BID [facility] Stop: 03/25/19 20:59 Last Admin: 02/24/19 08:22 Dose: 0.5 mg Documented by: [id number] Admin: 02/23/19 21:08 Dose: 0.5 mg Documented by: [id number] Clonidine HCl (Catapres) 0.1 mg PO [facility] Stop: 03/25/19 20:59 Last Admin: 02/23/19 21:08 Dose: 0.1 mg Documented by: [id number] Olanzapine (Zyprexa) 20 mg PO HS [facility] Stop: 03/25/19 20:59 Last Admin: 02/23/19 21:09 Dose: Not Given Documented by: [id number] Discontinued Medications Donepezil HCl (Aricept) 10 mg PO NOW STA Stop: 02/23/19 20:32 Last Admin: 02/23/19 21:09 Dose: 10 mg Documented by: [id number] Medical Decision Making Medical Records Attestation: I reviewed the patient's medical records. Home Medications Current Medication List: was personally reviewed by me Laboratory Data Attestation: I reviewed the patient's lab results. Result diagrams: 02/23/19 14:32 02/23/19 14:32 Lab Results 02/23/19 02/23/19 02/23/19 Range/Units 14:15 14:15 14:32 WBC 10.18 (4.8-10.8) K/uL RBC 4.94 (4.7-6.1) M/uL Hgb 16.5 (14.0-18.0) g/dL Hct 46.4 (42-52) % MCV 93.9 (80-100) fL MCH 33.4 (25-34) pg MCHC 35.6 (32-36) g/dL RDW Std Deviation 46.7 H (36.4-46.3) fL RDW Coeff of Namita 13.6 (11.5-14.5) % Plt Count 270 (130-400) K/uL MPV 9.0 (7.4-10.4) fL Immature Gran % (Auto) 0.2 % Neut % (Auto) 75.9 % Lymph % (Auto) 11.0 % [place] % (Auto) 11.3 % Eos % (Auto) 1.3 % Baso % (Auto) 0.3 % Immature Gran # (Auto) 0.02 (0.00-0.02) K/uL Neut # (Auto) 7.73 H (1.4-6.5) K/uL Lymph # (Auto) 1.12 L (1.2-3.4) K/uL [place] # (Auto) 1.15 H (0.11-0.59) K/uL Eos # (Auto) 0.13 (0-0.5) K/uL Baso # (Auto) 0.03 (0-0.2) K/uL Sodium (136-145) mmol/L Potassium (3.5-5.1) mmol/L Chloride (98-107) mmol/L Carbon Dioxide (21-32) mmol/L Anion Gap (3-11) BUN (7-18) mg/dl Creatinine (0.6-1.4) mg/dl Est Cr Clr Drug Dosing Est GFR ( Amer) Est GFR (Non-Af Amer) BUN/Creatinine Ratio (10-20) Glucose (70-99) mg/dl Calcium (8.5-10.1) mg/dl Total Bilirubin (0.2-1) mg/dl AST (15-37) U/L ALT (12-78) U/L Alkaline Phosphatase (45-117) U/L Total Protein (6.4-8.2) gm/dl Albumin (3.4-5.0) gm/dl Globulin (2.5-4.0) gm/dl Albumin/Globulin Ratio (0.9-2) TSH (0.300-4.500) uIu/ml Urine Color Yellow Urine Appearance Clear (Clear) Urine pH 7.0 (4.5-7.5) Ur Specific [place] 1.014 (1.000-1.030) Urine Protein Negative (Negative) Urine Glucose (UA) Negative (Negative) Urine Ketones Trace H (Negative) Urine Blood Trace H (Negative) Urine Nitrite Negative (Negative) Urine Bilirubin Negative (Negative) Urine Urobilinogen Negative (Negative) Ur Leukocyte Esterase Trace H (Negative) Urine RBC 0-4 (0-4) /hpf Urine WBC 0-5 (0-5) /hpf Ur Epithelial Cells 0-5 (0-5) /lpf Urine Bacteria Negative (Negative) Salicylates (2.8-20) mg/dl Urine Opiates Screen Neg (Neg) Ur Methadone, Qual Neg (Neg) Acetaminophen (10-30) ug/ml Urine Barbiturates Neg (Neg) Ur Phencyclidine (PCP) Neg (Neg) U Amphetamin/Meth Scrn Neg (Neg) MDMA (Ecstasy) Screen Neg (Neg) U Benzodiazepines Scrn Neg (Neg) Ur Cocaine Metabolite Neg (Neg) U Marijuana (THC) Screen Neg (Neg) Ethyl Alcohol mg/dL (0-3) mg/dl 02/23/19 02/23/19 02/23/19 Range/Units 14:32 14:32 14:32 WBC (4.8-10.8) K/uL RBC (4.7-6.1) M/uL Hgb (14.0-18.0) g/dL Hct (42-52) % MCV (80-100) fL MCH (25-34) pg MCHC (32-36) g/dL RDW Std Deviation (36.4-46.3) fL RDW Coeff of Namita (11.5-14.5) % Plt Count (130-400) K/uL MPV (7.4-10.4) fL Immature Gran % (Auto) % Neut % (Auto) % Lymph % (Auto) % [place] % (Auto) % Eos % (Auto) % Baso % (Auto) % Immature Gran # (Auto) (0.00-0.02) K/uL Neut # (Auto) (1.4-6.5) K/uL Lymph # (Auto) (1.2-3.4) K/uL [place] # (Auto) (0.11-0.59) K/uL Eos # (Auto) (0-0.5) K/uL Baso # (Auto) (0-0.2) K/uL Sodium 140 (136-145) mmol/L Potassium 3.7 (3.5-5.1) mmol/L Chloride 105 (98-107) mmol/L Carbon Dioxide 28 (21-32) mmol/L Anion Gap 7.0 (3-11) BUN 15 (7-18) mg/dl Creatinine 0.78 (0.6-1.4) mg/dl Est Cr Clr Drug Dosing Not Reportable Est GFR ( Amer) 104.5 Est GFR (Non-Af Amer) 90.2 BUN/Creatinine Ratio 19.7 (10-20) Glucose 122 H (70-99) mg/dl Calcium 9.6 (8.5-10.1) mg/dl Total Bilirubin 0.6 (0.2-1) mg/dl AST 25 (15-37) U/L ALT 30 (12-78) U/L Alkaline Phosphatase 102 (45-117) U/L Total Protein 7.5 (6.4-8.2) gm/dl Albumin 3.7 (3.4-5.0) gm/dl Globulin 3.8 (2.5-4.0) gm/dl Albumin/Globulin Ratio 1.0 (0.9-2) TSH 1.090 (0.300-4.500) uIu/ml Urine Color Urine Appearance (Clear) Urine pH (4.5-7.5) Ur Specific [place] (1.000-1.030) Urine Protein (Negative) Urine Glucose (UA) (Negative) Urine Ketones (Negative) Urine Blood (Negative) Urine Nitrite (Negative) Urine Bilirubin (Negative) Urine Urobilinogen (Negative) Ur Leukocyte Esterase (Negative) Urine RBC (0-4) /hpf Urine WBC (0-5) /hpf Ur Epithelial Cells (0-5) /lpf Urine Bacteria (Negative) Salicylates 3.0 (2.8-20) mg/dl Urine Opiates Screen (Neg) Ur Methadone, Qual (Neg) Acetaminophen < 2 L (10-30) ug/ml Urine Barbiturates (Neg) Ur Phencyclidine (PCP) (Neg) U Amphetamin/Meth Scrn (Neg) MDMA (Ecstasy) Screen (Neg) U Benzodiazepines Scrn (Neg) Ur Cocaine Metabolite (Neg) U Marijuana (THC) Screen (Neg) Ethyl Alcohol mg/dL < 3.0 (0-3) mg/dl Blood Pressure Blood Pressure Findings: Elevated blood pressure Blood Pressure Disposition: further management by hospitalist MDM Narrative The patient is a 73 year old white male w/ PMHx of tinnitus, schizophrenia, paranoia who presents to the ED w/ CC of a mental health evaluation beginning 3 hours ago. Differential diagnosis: Etiologies such as psychiatric disorder, infection, hypoglycemia, electrolyte abnormalities, cardiac sources, intracerebral event, toxicological process, n eurologic disorder, as well as others were entertained. Patient was seen and evaluated the bedside. The patient poorly had been found supine in a dumpster. Patient only complains of auditory hallucinations but no visual hallucinations SI or HI. The patient has been noncompliant with medications and not taking them for 4 days. Patient does relate not sleeping for 7 days. Patient did a blood work completed and was deemed medically clear. Patient was subsequently pending inpatient psychiatric treatment. Home medications were ordered and the patient was signed out to the nighttime physician pending disposition and placement. Impression & Plan Auditory hallucinations, Insomnia, Encounter for smoking cessation counseling Discharge Plan Visit Data Chief Complaint: Mental Health Evaluation ED Provider: Zohaib Smallwood Discharge Problem: Auditory hallucinations, Insomnia, Encounter for smoking cessation counseling Forms Stand Alone Forms: My [facility] Prescriptions Prescriptions: No Action benztropine 0.5 mg tablet 0.5 mg PO BID RF: 0 B Complex 1 tab PO DAILY RF: 0 caffeine 200 mg Tablet 200 mg PO DAILY RF: 0 lorazepam [Ativan] 0.5 mg Tablet 0.5 mg PO UNKNOWN PRN (Reason: Anxiety) RF: 0 cyanocobalamin (vitamin B-12) [Vitamin B-12] 500 mcg Tablet 500 mcg PO DAILY RF: 0 magnesium 250 mg Tablet 250 mg PO DAILY RF: 0 pyridoxine (vitamin B6) [Vitamin B-6] 100 mg Tablet 100 mg PO DAILY RF: 0 olanzapine 20 mg tablet 20 mg PO HS RF: 0 melatonin 10 mg tablet 10 mg PO HS RF: 0 Multi Vitamin 1 tab PO DAILY RF: 0 Xanax 0.5 mg PO UNKNOWN PRN (Reason: Anxiety) RF: 0 iodine 225 mg PO DAILY RF: 0 lutein 40 mg PO UNKNOWN RF: 0 clonidine HCl 0.1 mg Tablet 0.1 mg PO HS RF: 0 donepezil [Aricept] 5 mg Tablet 10 mg PO DAILY RF: 0 Discharge Problem: Insomnia Qualifiers: Insomnia type: unspecified Qualified Code(s): G47.00 - Insomnia, unspecified The scribe's documentation has been prepared under my direction and personally reviewed by me in its entirety. I confirm that the note above accurately reflects all work, treatment, procedures, and medical decision making performed by me.
[2019-02-23] MEDS ORDERED: DONEPEZIL HCL 10 MG TAB PO STA (20:31)
[2019-02-23] MEDS ORDERED: cloNIDine HCL 0.1 MG TAB PO SCH (21:00)
[2019-02-23] MEDS ORDERED: OLANZapine 20 MG TABLET PO SCH (21:00)
[2019-02-23] MEDS: BENZTROPINE MESYLATE 0.5 MG TAB PO SCH (21:08)
--- NOTE | 2019-02-24 00:07 | Emergency Department Note ---
ED Visit Note I received this patient at change of shift signout from Dr. Amador. Please see his note for initial history and physical exam. The patient is a 73-year-old male who has a history of paranoid schizophrenia who presented to the emergency department after he was found sleeping in a dumpster by police. The patient was awake and alert. He was agreeable to examination as well as evaluation by mental health. The patient was medically cleared in all of his outpatient medications were ordered by Dr. Amador. I discussed his case with the emergency department mental health behavioral health case manager. A bed search was undertaken but at this time no bed was found. Bed search has been suspended till morning. The patient was resting comfortably on my evaluation. He had no needs identified at this time. . : Insomnia Qualifiers: Insomnia type: unspecified Qualified Code(s): G47.00 - Insomnia, unspecified
--- NOTE | 2019-02-24 06:03 | Emergency Department Note ---
ED Visit Note Received patient in signout. History and physical verified by me. Patient is currently undergoing a bed search. Pt signed out to Dr Amador at change of shift. . : Insomnia Qualifiers: Insomnia type: unspecified Qualified Code(s): G47.00 - Insomnia, unspecified
[2019-02-24] MEDS: BENZTROPINE MESYLATE 0.5 MG TAB PO SCH ×2 (08:22→21:38)
[2019-02-24] MEDS ORDERED: NICOTINE 14 MG/24 HR PATCH TD SCH (09:00)
[2019-02-24] MEDS ORDERED: ALUMINUM/MAGNESIUM SUSP 30 ML UDC PO PRN (16:40)
[2019-02-24] MEDS ORDERED: SODIUM CHLORIDE 0.65% NA SOLN 45 ML (OCEAN) PRN (16:40)
[2019-02-24] MEDS ORDERED: BISMUTH SUBSALICYLATE PER ML OMNICELL CHARGE PO PRN (16:40)
[2019-02-24] MEDS ORDERED: ACETAMINOPHEN 325 MG TAB PO PRN (16:40)
[2019-02-24] MEDS ORDERED: LORazepam 0.5 MG TAB PO PRN (16:42)
--- NOTE | 2019-02-24 19:27 | Emergency Department Note ---
Entered by Chela Myles acting as a scribe for Venkatesh Amador MD ED Visit Note 1548: I resumed care from Dr. Smallwood, pending placement to [address] [place] [address]. 1810: Accepted patient as [address]. I signed the 302 petition. . : Insomnia Qualifiers: Insomnia type: unspecified Qualified Code(s): G47.00 - Insomnia, unspecified The scribe's documentation has been prepared under my direction and personally reviewed by me in its entirety. I confirm that the note above accurately reflects all work, treatment, procedures, and medical decision making performed by me.
[2019-02-24] MEDS: OLANZapine 20 MG TABLET PO SCH (21:38)
[2019-02-24] MEDS: cloNIDine HCL 0.1 MG TAB PO SCH (21:38)
--- NOTE | 2019-02-25 08:06 | History & Physical ---
Date of Service February 25, 2019 Impression / Recommendations Impression 73-year-old male admitted involuntarily on 02/24/19 decline in functioning and worsening of symptoms related to schizophrenia diagnosis and being off medications for several days. Pt refusing scheduled olanzapine offered in the ED and to him the evening of admission. Pt has reportedly had increase in auditory hallucinations and increased belief that he has a "chip" in his brain. He had verbalized decreased nutritional intake and difficulty sleeping. Pt was admitted involuntarily as was brought to the ED on a 302 warrant and openly made statements in the ED refusing to work with psychiatric providers or take his scheduled medications. He adamantly refused to meet with this provider to complete a more detailed assessment. It is very likely patient will require medications over objection if he remains unwilling, as his condition is significant and will likely not improve without the necessary psychotropic medications. On admission assessment by psychiatrist today, he will also be assessed for this. At this time, inpatient psychiatric admission is medically necessary due to the severity of the patient's long-standing condition, worsening of paranoia and delusional beliefs which are now interfering with functioning, and refusal of medications and recommended treatment. Pt is considered to be at high risk of harm to himself or others if discharged without resuming adequate psychotropic regimen and establishing an adequate safety and discharge plan. Dr. Alison Campos was directly involved in review and discussion of the patient's case and participated in medical decision making regarding treatment recommendations. (1) Schizophrenia: 02/25 - Continue home medication regimen - as refusing offerings of his antipsychotic, will likely require olanzapine IM (or alternative agent) over objection, given clear evidence of paranoia and delusional thought process - previously stabilized on this medication - Pt agreeable to taking all other medications, with exception of antipsychotic as mentioned above - Admitted to a locked inpatient behavioral health unit, on q15 minute safety checks - Encourage medication initiation/adjustments as indicated - Encourage participation in group and recreational therapies - Gather collateral information from outpatient providers and penitentiary staff - Suggest family meeting to involve outpatient supports in safety planning - Reschedule appropriate aftercare appointments Schizophrenia type: paranoid schizophrenia Qualified Code(s): F20.0 - Paranoid schizophrenia (2) Hypertension: 02/25 - Continue home dose of clonidine 0.1mg qHS Hypertension type: essential hypertension Qualified Code(s): I10 - Essential (primary) hypertension (3) Substance abuse: 02/25 - Pt has reported history of substance abuse, and recommendation has consistently been for avoidance of substances with significant abuse potential. - PDMP queried - most recent prescriptions below - lorazepam 0.5mg #60 tabs for 30 day supply - Dr. Alves - filled 02/12/2019 - alprazolam 0.5mg #90 tabs for 30 day supply - Dr. Lopez - filled 01/16/2019 - temazepam 30mg #30 caps for 30 day supply - Dr. Lopez - filled 01/16/2019 - Will continue lorazepam 0.5mg BID prn on admission, as only medication that is seemingly active - toxicology screen is negative for benzodiazepines, which questions if he has been taking the medication appropriately - Ideally will taper and discontinue the lorazepam, as recommendation remains that substances with abuse potential be avoided Inventory Assets Needs: Resume symptom-stabilizing medication regimen, coordinate care with penitentiary Protective Factors Assessment Employed: No Psychiatric History Identifying Data TREY ROBERTO is a 73-year-old M who currently lives at a [facility] in [place]. Pt has a history of schizophrenia and is known to our unit from several previous admissions, most recently in 09/2016. Pt and was admitted on 02/24/19 16:40 on a 302 involuntary commitment for exacerbation of schizophrenia and heightened paranoia resulting in belief he needed to hide in a dumpster to seek refuge from impending bombings. Pt was found by [facility] staff and brought to the ED by police. Pt remains rather paranoid and is only cooperative with a brief assessment. History provided at this time is considered to be unreliable. Chief Complaint "Are you a psychiatrist? I won't speak with you without a office machine repair shop supervisor, to have an accurate report, you know? It only makes sense." History of Present Illness Trey Roberto is a 73-year-old male admitted involuntarily on 02/24/19 due to exacerbation of his schizophrenia and delusional belief causing irrational behavior while at his penitentiary. Pt was brought to the ED by police on a 302 warrant after he was reportedly found in a dumpster outside of his [facility] by staff. Pt had reportedly informed staff that the would would be ending in 3 days, and that he had to lie in the dumpster to protect him from bombings from [place]. Pt was reportedly combative with staff as they attempted to retrieve him from the dumpster. ED documentation suggests that the patient has not been taking his medication and that he has not been sleeping or eating. Noticeable weight loss is reported, and outpatient case coordinator is documented as saying the patient "has been declining for the past month." Pt did admit to not taking his medications for several days prior to presentation to the ED. 302 Petitioning statement was completed by Khushi Snyder, pertinent sections read: "Trey Roberto has been refusing medications consistently. Trey becomes easily agitated if he does not receive Ativan or Xanax which Trey has a history of abusing addictive medications. ...he is not sleeping at night and refuses to let staff contact Drs that he sees. ...Trey was seen by staff pacing the side walks in the rain...Trey roommate then came to staff with concerns ...and has observed Trey staying up 24 hours staring at the wall having full loud conversations with himself. 15 minutes later staff over hears talking coming from the dumpster. Staff calls 911 and other supports. Trey is...unable to be assessed through his delusions. Trey was combative physically, kicking staff repeatedly in the legs... Trey tells office machine repair shop supervisor...'If you touch me you will , and your kids will too."' Trey continues to raise his voice to police stating 'someone will today.' Trey has reported...he has 'not slept in 15 days...' Trey will not come out of the dumpster due to the 'chips in his head' 'and the word is ending in 3 days.'" This provider attempted to meet with the patient today to complete his H&P. Pt was found to be pacing the halls and was offered to come speak with this provider. Pt stated he felt uncomfortable as he did not know this provider's qualifications - "are you a board certified psychiatrist? I want you office machine repair shop supervisor present." Pt was informed that this provider is a board certified Physician Substation Superintendent working in psychiatry and that his case would be reviewed with the psychiatrist who will also be meeting with him today. Pt states, "your office machine repair shop supervisor needs to be present, I need an accurate report." Pt reports that he has been "tricked by PA's before, you have no education." This provider again informed patient that this provider functions as part of the psychiatric team and that a psychiatrist is available as well. Pt goes on to state that he does not trust any providers and is not sure that he will speak with our psychiatrist either. Pt was offered a visit later in the afternoon, which he refuses at this time. He is unwilling to cooperate with assessment to determine extent of his delusional beliefs at this time, or to evaluate for presence of SI or HI (though he denied in the ED prior to admission). Pt abruptly ends conversation with this provider by walking away. Past Psychiatric History Previous Psych History: Pt is known from several previous admissions at [facility], most recently in 09/2016. Most recent known admission was to [facility] in 04/2018. He has had several other inpatient admissions between [facility], and a stay at [facility] in 2013. As unwilling to participate in detailed assessment, remainder of psychiatric history is gathered from previous documentation. Current Psychiatric Diagnosis: Paranoid Schizophrenia Outpatient Services: Psychiatrist - Dr. Alves Vacuum Closing Machine Operator - Mal Lopez - Shruti Guadalupe Describe Attempts in the Past: OD appx: 1 year ago Past Medication Trials: Per previous documentation - 09/2016 admission: 1. Zyprexa 2. Risperdal 3. Abilify 4. Haldol - dystonia 5. Amitriptyline 6. Imipramine 7. Ambien 8. Thorazine - NMS 9. Temazepam 10.Cymbalta - GI symptoms 11.Navane 12.Loxitane 13.Invega 14.Latuda 15.Ativan 16.Xanax 17.Seroquel Past Head Trauma/Neuro History History of Concussion/Seizure: Yes (closed head injury reported in problem list ) Allergies Allergy/AdvReac Type Severity Reaction Status Date / Time No Known Allergies Allergy Verified 02/23/19 16:32 Home Medications Home Medications Medication Instructions Recorded Confirmed Type clonidine HCl 0.1 mg PO HS 04/29/18 02/23/19 History donepezil [Aricept] 10 mg PO DAILY 04/29/18 02/23/19 History B Complex 1 tab PO DAILY 02/23/19 02/23/19 History Multi Vitamin 1 tab PO DAILY 02/23/19 02/23/19 History Xanax 0.5 mg PO UNKNOWN PRN 02/23/19 02/23/19 History benztropine 0.5 mg PO BID 02/23/19 02/23/19 History caffeine 200 mg PO DAILY 02/23/19 02/23/19 History cyanocobalamin (vitamin B-12) 500 mcg PO DAILY 02/23/19 02/23/19 History [Vitamin B-12] iodine 225 mg PO DAILY 02/23/19 02/23/19 History lorazepam [Ativan] 0.5 mg PO UNKNOWN PRN 02/23/19 02/23/19 History lutein 40 mg PO UNKNOWN 02/23/19 02/23/19 History magnesium 250 mg PO DAILY 02/23/19 02/23/19 History melatonin 10 mg PO HS 02/23/19 02/23/19 History olanzapine 20 mg PO HS 02/23/19 02/23/19 History pyridoxine (vitamin B6) [Vitamin 100 mg PO DAILY 02/23/19 02/23/19 History B-6] Family History Family History of: Alcoholism/Drug Abuse Family Mental Health History Comment: Father: Alcoholic Per previous 09/2016 admission - cousin with schizophrenia who committed suicide. Mother with schizophrenia. Alcohol History Hx of Alcohol Use Over the Past 12 Months: No AUDIT Total Score: 0 Smoking Use Have You Smoked or Used Tobacco Products in the Last 30 Days: Yes tobacco type: cigarettes Smoking Status: Current every day smoker Smoking packs per day: 1.5 Substance History Hx of Prescription Med Misuse Over the Past 12 Months: No Hx of Over the Counter Med Misuse Over the Past 12 Months: No Hx of Inhalent Misuse Over the Past 12 Months: No Hx of Organic Substance Use Over the Past 12 Months: No Hx of Illegal Substances/Street Drug Use Over Past 12 Months: Yes ("Acid, it's an analog of LSD. 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) Marital Status: Single Number Of Children: None Beliefs That Will Affect Care: None Current Legal Problems: No Hx Traumatic Life Events: No (denied on 09/2016 admission) Patient History Medical History Schizophrenia (Chronic) Closed head injury (Acute) Scalp laceration (Acute) Rhabdomyolysis (Acute 07/21/13) Scalp laceration (Acute) Fall (Acute) Leukocytosis (Acute 08/14/13) Altered mental status (Acute) Dehydration (Acute) Thought disorder (Acute) Paranoia (Acute) Closed head injury (Acute) Scalp laceration (Acute) Altered mental status (Acute) Fall (Acute) Benzodiazepine abuse (Chronic) Hypertension Hypokalemia (Acute) Noncompliance (Chronic) Tobacco use disorder (Chronic) Family History Other No pertinent family history Social History Preferred Language: Tristanian Communication Ability: Effective Beliefs That Will Affect Care: None Feels Safe at Home: Yes Smoking Status: Current every day smoker Tobacco Type: cigarettes Review of Systems Review of Systems: Patient is unwilling to participate in detailed assessment, refusing to proceed with review of systems Physical Exam 2 Psychiatric: Orientation: alert, oriented to person, oriented to place and + guarded (highly guarded, refusing to participate in detailed assessment); + uncooperative Apperance: appropriately dressed, appropriately groomed and appeared stated age Eye Contact: good eye contact Motor Behavior: steady gait and station and + psychomotor agitation (restlessness, writhing hands ) Speech: normal rate/rhythm/volume of speech (soft tone, very brief responses to questions, refusing more detailed eval) Affect: + anxious affect and + irritable affect Unwilling to discuss current mood state Thought Process: + tangential thought process and + perseveration (on delusional beliefs) Thought Content: + paranoid (believes this provider is not board-certified, and will alter report) and + delusions (various delusional beliefs, some of which are fixed (chip in head)) Unwilling to discuss at times of assessment Unwilling to discuss at times of assessment Hallucinations: + auditory hallucinations (has chronically heard voices for "35+" years) Unwilling to discuss in greater detail at times of assessment Cognition: language grossly intact Estimated Intelligence: consistent with education level Insight: + severely impaired insight Judgement: + severely impaired judgement Vital Signs (Past 24 Hours): Last Vital Signs Temp 36.7 C 02/25/19 06:44 Pulse 66 02/25/19 06:45 Resp 18 02/25/19 06:44 BP 118/64 02/25/19 06:45 Pulse Ox 96 02/24/19 08:10 Exam Statement: A physical exam was performed in the ER prior to admission to the unit by Dr. Venkatesh Amador MD. I accept that physical as correct/medical clearance for the inpatient physical exam. Results & Data Current Inpatient Medications Current Inpatient Medications: Current Inpatient Medications Acetaminophen (Tylenol) 650 mg PO Q4H PRN PRN Reason: Headache or Minor Fever Stop: 03/26/19 16:39 Al Hydrox/Mg Hydrox/Simethicone (Maalox) 30 ml PO Q4H PRN PRN Reason: GI Upset Stop: 03/26/19 16:39 Benztropine Mesylate (Cogentin) 0.5 mg PO BID MAG Stop: 03/26/19 20:59 Last Admin: 02/24/19 21:38 Dose: Not Given Documented by: Bismuth Subsalicylate (Kaopectate) 15 ml PO PRN PRN PRN Reason: Loose Stool Stop: 03/26/19 16:39 Clonidine HCl (Catapres) 0.1 mg PO HS MAG Stop: 03/26/19 20:59 Last Admin: 02/24/19 21:38 Dose: Not Given Documented by: Cyanocobalamin (Vitamin B-12) 500 mcg PO DAILY MAG Stop: 03/27/19 08:59 Donepezil HCl (Aricept) 10 mg PO DAILY MAG Stop: 03/27/19 08:59 Hydroxyzine HCl (Vistaril) 25 mg PO Q4H PRN PRN Reason: Anxiety Stop: 03/26/19 16:39 Hydroxyzine HCl (Vistaril) 50 mg PO HSZ PRN PRN Reason: Insomnia Stop: 03/26/19 16:39 Lorazepam (Ativan) 0.5 mg PO BID PRN PRN Reason: Anxiety Stop: 03/26/19 16:41 Magnesium Hydroxide (Milk Of Magnesia) 30 ml PO DAILY PRN PRN Reason: Heartburn Stop: 03/26/19 16:39 Magnesium Oxide (Mag-Ox) 400 mg PO DAILY MAG Stop: 03/27/19 08:59 Miscellaneous (Remove Nicoderm Patch) 1 ea N/A HS MAG Stop: 03/26/19 20:59 Last Admin: 02/24/19 21:38 Dose: Not Given Documented by: Multivitamins (Multivitamin Tab) 1 tab PO DAILY MAG Stop: 03/27/19 08:59 Nicotine (Nicoderm Cq) 14 mg TD QAM MAG Stop: 03/27/19 08:59 Olanzapine (Zyprexa) 20 mg PO HS MAG Stop: 03/26/19 20:59 Last Admin: 02/24/19 21:38 Dose: Not Given Documented by: Pyridoxine HCl (Vitamin B-6) 100 mg PO DAILY MAG Stop: 03/27/19 08:59 Sodium Chloride (Clymer Nasal) 1 - 2 sprays NA PRN PRN PRN Reason: Nasal Dryness/Congestion Stop: 03/26/19 16:39 CPT Code CPT Code Initial Hospital Care: [id number]
[2019-02-25] MEDS: MAGNESIUM OXIDE 400 MG TAB PO SCH (08:31)
[2019-02-25] MEDS: CYANOCOBALAMIN 500 MCG TABLET (VITAMIN B-12) PO SCH (08:32)
[2019-02-25] MEDS: PYRIDOXINE HCL 50 MG TAB PO SCH (08:32)
[2019-02-25] MEDS: MULTIVITAMIN TAB PO SCH (08:32)
[2019-02-25] MEDS: NICOTINE 14 MG/24 HR PATCH TD SCH (08:33)
[2019-02-25] MEDS: DONEPEZIL HCL 5 MG TAB PO SCH (08:33)
[2019-02-25] MEDS: BENZTROPINE MESYLATE 0.5 MG TAB PO SCH ×2 (08:33→21:09)
[2019-02-25] MEDS: cloNIDine HCL 0.1 MG TAB PO SCH (20:23)
[2019-02-25] MEDS: OLANZapine 20 MG TABLET PO SCH (21:10)
[2019-02-26] MEDS: MAGNESIUM OXIDE 400 MG TAB PO SCH (08:04)
[2019-02-26] MEDS: DONEPEZIL HCL 5 MG TAB PO SCH (08:04)
[2019-02-26] MEDS: BENZTROPINE MESYLATE 0.5 MG TAB PO SCH ×2 (08:04→21:11)
[2019-02-26] MEDS: CYANOCOBALAMIN 500 MCG TABLET (VITAMIN B-12) PO SCH (08:05)
[2019-02-26] MEDS: MULTIVITAMIN TAB PO SCH (08:05)
[2019-02-26] MEDS: NICOTINE 14 MG/24 HR PATCH TD SCH (08:05)
[2019-02-26] MEDS: PYRIDOXINE HCL 50 MG TAB PO SCH (08:05)
--- NOTE | 2019-02-26 11:43 | Psychiatric Progress Note ---
Date of Service February 26, 2019 Impression / Recommendations Impression 73-year-old male with schizophrenia who lives at the [facility] and was admitted involuntarily on 02/24/19 after rapidly decompensating when he stopped his olanzapine 1-2 weeks ago. He became floridly delusional and was combative with [facility] staff which led to hospitalization. He is refusing to take olanzapine, or any other antipsychotic, here. He continues to endorse auditory hallucinations and belief that he has a microchip in his brain. We will file for 303 involuntary commitment and recommend medications over objection, as his psychotic symptoms are unlikely to improve without treatment. He remains at high risk of harm to both himself or others, and inpatient treatment is medically necessary. (1) Schizophrenia: 02/25 - Continue home medication regimen - as refusing offerings of his antipsychotic, will likely require olanzapine IM (or alternative agent) over objection, given clear evidence of paranoia and delusional thought process - previously stabilized on this medication - Pt agreeable to taking all other medications, with exception of antipsychotic as mentioned above - Admitted to a locked inpatient behavioral health unit, on q15 minute safety checks - Encourage medication initiation/adjustments as indicated - Encourage participation in group and recreational therapies - Gather collateral information from outpatient providers and skilled nursing staff - Suggest family meeting to involve outpatient supports in safety planning - Reschedule appropriate aftercare appointments 02/26 -Patient indicates willingness to sign a release for the [facility] skilled nursing, will get collateral from their staff. -File for 303 involuntary commitment to be held tomorrow. -Recommend medications over objection, with an IM Zyprexa backup for refusal of oral medication. Involve outpatient treatment team to discuss ways to improve stability and compliance; consider long-acting injectable antipsychotic. -Order fasting labs for monitoring on an atypical antipsychotic once patient is more cooperative. (2) Substance abuse: 02/25 - Pt has reported history of substance abuse, and recommendation has consiste ntly been for avoidance of substances with significant abuse potential. - PDMP queried - most recent prescriptions below - lorazepam 0.5mg #60 tabs for 30 day supply - Dr. Alves - filled 02/12/2019 - alprazolam 0.5mg #90 tabs for 30 day supply - Dr. Lopez - filled 01/16/2019 - temazepam 30mg #30 caps for 30 day supply - Dr. Lopez - filled 01/16/2019 - Will continue lorazepam 0.5mg BID prn on admission, as only medication that is seemingly active - toxicology screen is negative for benzodiazepines, which questions if he has been taking the medication appropriately - Ideally will taper and discontinue the lorazepam, as recommendation remains that substances with abuse potential be avoided (3) Hypertension: 02/25 - Continue home dose of clonidine 0.1mg qHS Inventory Assets Needs: Resume symptom-stabilizing medication regimen, coordinate care with skilled nursing Risk Factors Assessment Male: Yes : Yes Do You Have Access To A Gun?: No Health Problems: Yes Mental Health Diagnoses: Yes Substance Use Disorders: Yes Protective Factors Assessment L[employer] Day Beliefs: No : No Responsible for Young Children: No Employed: No Stable Relationships: No Supportive Family: No Good Rapport with Provider: No Interval History Identifying Information SCOTT ROBERTO is a 73-year-old M who currently lives at a [facility] in [place]. Pt has a history of schizophrenia and is known to our unit from several previous admissions, most recently in 09/2016. Pt and was admitted on 02/24/19 16:40 on a 302 involuntary commitment for exacerbation of schizophrenia and heightened paranoia resulting in belief he needed to hide in a dumpster to seek refuge from impending bombings. Pt was found by [facility] staff and brought to the ED by police. Chief Complaint "I want a board certified psychiatrist". Review of Systems Sleep Information Total Hours of Sleep: 7.75 Sleep Comments: had slept some on the evening shift then awake at 0000 to eat snacks of cereal with juice. Meal Information Percent Meal Consumed - Breakfast: 85 Percent Meal Consumed - Lunch: 0 Percent Meal Consumed - Dinner: 90 Subjective Subjective Patient was seen & assessed and interval progress reviewed with nursing and social work. They report the patient has refused his Zyprexa the past 2 nights, denies that he has a psychotic illness, but is nonsensical when he attempts to participate in groups. He told one staff member that he took an analog of LSD before admission, and that staff should try it. He refused to sign his treatment plan. On my assessment, he initially states he will not meet with me as he will only see a board certified psychiatrist. Once informed that I am, he agreed to talk. He states he has no memory of what happened before he came to the hospital or why he is here. He reports living at the [facility] for about 2 years, and says he was "kind of looking for things that don't run in our culture, there's different states of consciousness, this one is getting to the point of survivalist." He says he stopped taking his Zyprexa a couple of weeks ago after the dose was increased, as he does not think it works, and does not think he needs it. He will not answer when asked what his diagnosis is, stating "whatever you think it is." He has multiple complaints about his outpatient treatment, stating that his case liner should "know what to do, how to help me," without the patient having to tell him anything. He says he has been using medical marijuana products to "change my consciousness, they let me think 'who cares?'." He reports restless legs, is unsure how long it has been going on for. Physical Exam Psychiatric Orientation: alert and cooperative (Partially) Apperance: appropriately dressed, appropriately groomed and appeared stated age Eye Contact: good eye contact Constant mouth and lower extremity movements Speech: normal rate/rhythm/volume of speech Affect: + blunted affect "Pretty good." Thought Process: + tangential thought process and + looseness of associations; + thought association not intact Thought Content: + delusions Suicidal Thoughts: denies suicidal thoughts Homicidal Thoughts: denies homicidal thoughts Hallucinations: + auditory hallucinations Cognition: + recent memory not intact, + remote memory not intact, + attention not intact and + language not intact Insight: + severely impaired insight Judgement: + severely impaired judgement Vital Signs (Past 24 Hours) Last Vital Signs Temp 36.6 C 02/26/19 06:50 Pulse 71 02/26/19 06:51 Resp 18 02/26/19 06:50 BP 131/74 02/26/19 06:51 Pulse Ox 96 02/24/19 08:10 Results & Data Current Inpatient Medications Current Inpatient Medications: Current Inpatient Medications Acetaminophen (Tylenol) 650 mg PO Q4H PRN PRN Reason: Headache or Minor Fever Stop: 03/26/19 16:39 Al Hydrox/Mg Hydrox/Simethicone (Maalox) 30 ml PO Q4H PRN PRN Reason: GI Upset Stop: 03/26/19 16:39 Benztropine Mesylate (Cogentin) 0.5 mg PO BID [facility] Stop: 03/26/19 20:59 Last Admin: 02/26/19 08:04 Dose: Not Given Documented by: Bismuth Subsalicylate (Kaopectate) 15 ml PO PRN PRN PRN Reason: Loose Stool Stop: 03/26/19 16:39 Clonidine HCl (Catapres) 0.1 mg PO [facility] Stop: 03/26/19 20:59 Last Admin: 02/25/19 20:23 Dose: Not Given Documented by: Cyanocobalamin (Vitamin B-12) 500 mcg PO DAILY [facility] Stop: 03/27/19 08:59 Last Admin: 02/26/19 08:05 Dose: 500 mcg Documented by: Donepezil HCl (Aricept) 10 mg PO DAILY [facility] Stop: 03/27/19 08:59 Last Admin: 02/26/19 08:04 Dose: Not Given Documented by: Hydroxyzine HCl (Vistaril) 25 mg PO Q4H PRN PRN Reason: Anxiety Stop: 03/26/19 16:39 Hydroxyzine HCl (Vistaril) 50 mg PO HSZ PRN PRN Reason: Insomnia Stop: 03/26/19 16:39 Lorazepam (Ativan) 0.5 mg PO BID PRN PRN Reason: Anxiety Stop: 03/26/19 16:41 Magnesium Hydroxide (Milk Of Magnesia) 30 ml PO DAILY PRN PRN Reason: Heartburn Stop: 03/26/19 16:39 Magnesium Oxide (Mag-Ox) 400 mg PO DAILY [facility] Stop: 03/27/19 08:59 Last Admin: 02/26/19 08:04 Dose: 400 mg Documented by: Miscellaneous (Remove Nicoderm Patch) 1 ea N/A [facility] Stop: 03/26/19 20:59 Last Admin: 02/25/19 21:10 Dose: Not Given Documented by: Multivitamins (Multivitamin Tab) 1 tab PO DAILY [facility] Stop: 03/27/19 08:59 Last Admin: 02/26/19 08:05 Dose: 1 tab Documented by: Nicotine (Nicoderm Cq) 14 mg TD QAM [facility] Stop: 03/27/19 08:59 Last Admin: 02/26/19 08:05 Dose: Not Given Documented by: Olanzapine (Zyprexa) 20 mg PO [facility] Stop: 03/26/19 20:59 Last Admin: 02/25/19 21:10 Dose: Not Given Documented by: Pyridoxine HCl (Vitamin B-6) 100 mg PO DAILY [facility] Stop: 03/27/19 08:59 Last Admin: 02/26/19 08:05 Dose: 100 mg Documented by: Sodium Chloride (Mcdonough Nasal) 1 - 2 sprays NA PRN PRN PRN Reason: Nasal Dryness/Congestion Stop: 03/26/19 16:39 Mental Health & Subst Abuse Tx Therapist Name of Therapist: Sammy Flat Lock Machine Operator Name of Flat Lock Machine Operator: Mal Lopez Post Discharge Appointments Primary Care Physician Name Of Family Doctor: Dr. Lopez CPT Code CPT Code 78530 (1) Schizophrenia Schizophrenia type: paranoid schizophrenia Qualified Code(s): F20.0 - Paranoid schizophrenia (2) Hypertension Hypertension type: essential hypertension Qualified Code(s): I10 - Essential (primary) hypertension
[2019-02-26] MEDS: cloNIDine HCL 0.1 MG TAB PO SCH (21:11)
[2019-02-26] MEDS: OLANZapine 20 MG TABLET PO SCH (21:12)
[2019-02-27] MEDS: MAGNESIUM OXIDE 400 MG TAB PO SCH (08:19)
[2019-02-27] MEDS: MULTIVITAMIN TAB PO SCH (08:19)
[2019-02-27] MEDS: PYRIDOXINE HCL 50 MG TAB PO SCH (08:19)
[2019-02-27] MEDS: CYANOCOBALAMIN 500 MCG TABLET (VITAMIN B-12) PO SCH (08:19)
[2019-02-27] MEDS: DONEPEZIL HCL 5 MG TAB PO SCH (08:21)
[2019-02-27] MEDS: BENZTROPINE MESYLATE 0.5 MG TAB PO SCH ×2 (08:21→21:12)
[2019-02-27] MEDS: NICOTINE 14 MG/24 HR PATCH TD SCH (08:21)
--- NOTE | 2019-02-27 11:07 | Psychiatric Progress Note ---
Date of Service February 27, 2019 Impression / Recommendations Impression 73-year-old male with schizophrenia who lives at the [facility] and was admitted involuntarily on 02/24/19 after rapidly decompensating when he stopped his olanzapine 1-2 weeks ago. He became floridly delusional and was combative with [facility] staff which led to hospitalization. He is refusing to take olanzapine, or any other antipsychotic, here. He continues to endorse auditory hallucinations and belief that he has a microchip in his brain. We will file for 303 involuntary commitment and recommend medications over objection, as his psychotic symptoms are unlikely to improve without treatment. He remains at high risk of harm to both himself or others, and inpatient treatment is medically necessary. The patient was retained at his 303 hearing this morning, and at his hearing the patient's only statement was to say that he would agree to the treatment recommendations made by the "doctors" in the hospital. He remains floridly psychotic, with symptoms that include persistent and intrusive auditory hallucinations, of a persecutory content, persecutory delusional believes, and disorganized thinking. He has been refusing, consistently, psychiatric medications, but today he did tell me that he would trust me enough to consent to a trial of aripiprazole. He notes that he had taken aripiprazole in the past, but but that it "did not help." He also notes that he did not have any difficulty tolerating aripiprazole. The patient also indicated that he would consider taking olanzapine. His current order is for olanzapine 20 mg at bedtime, but he has been refusing it. In my meeting with his outpatient providers this morning I learned that the patient has a long history of intermittently abusing psychiatric medications and, within this context, frequently decompensating. For that reason, we will look at a Depo medication, such as haloperidol decanoate, risperidone constant, Abilify Maintena, or Invega Sustenna. Of these, the patient indicated that he would prefer at least a one-time trial of oral Abilify, but also indicated that he was not sure that he would consent to an intramuscular injection. Our hope is that with the addition of antipsychotic medications on board the patient will become more cooperative and develop a greater degree of insight. I am offering him Abilify 15 mg by mouth today, and depending on his response we may continue oral aripiprazole, with a plan to convert to the Depo form in the near future. Failing that, my recommendation is that we renew our efforts to convince the patient to take Zyprexa at bedtime, again with the hope that this will allow the patient to develop sufficient insight to allow us to convert to 1 of the long-acting Depo forms of antipsychotic medications, such as those noted above. He tells us that he does not want Haldol because of extraparametal side effects, and has a negative impression of risperidone. Paliperidone may also be an option. The patient is also been refusing Aricept, although he acknowledges that he believes that he is having trouble with his short-term memory. However, the patient also describes having difficulty concentrating and focusing on what people are telling him because of the persistent and intrusive auditory hallucinations, and cognitive decline and schizophrenia is not likely to respond favorably to Aricept. For that reason, I will plan to discontinue Aricept at this time. (1) Schizophrenia: 02/25 - Continue home medication regimen - as refusing offerings of his antipsychotic, will likely require olanzapine IM (or alternative agent) over objection, given clear evidence of paranoia and delusional thought process - previously stabilized on this medication - Pt agreeable to taking all other medications, with exception of antip sychotic as mentioned above - Admitted to a locked inpatient behavioral health unit, on q15 minute safety checks - Encourage medication initiation/adjustments as indicated - Encourage participation in group and recreational therapies - Gather collateral information from outpatient providers and retirement staff - Suggest family meeting to involve outpatient supports in safety planning - Reschedule appropriate aftercare appointments 02/26 -Patient indicates willingness to sign a release for the [facility] retirement, will get collateral from their staff. -File for 303 involuntary commitment to be held tomorrow. -Recommend medications over objection, with an IM Zyprexa backup for refusal of oral medication. Involve outpatient treatment team to discuss ways to improve stability and compliance; consider long-acting injectable antipsychotic. -Order fasting labs for monitoring on an atypical antipsychotic once patient is more cooperative. 02/27 -The patient was retrained at his involuntary commitment hearing (303) this morning. -He has continuously and consistently refused psychiatric medications to date. However, today, when I explained that that a option that might become necessary in his case is medication over objection, and an intramuscular form, the patient said that he understood and that he would try medications that I prescribe. His initial preference would be olanzapine, but because olanzapine is not available in a long acting depot form, we would first like to try aripiprazole. He indicates that he is taken aripiprazole in the past and has been able to tolerate it, although he does not believe that it has been particularly helpful. -A trial dose of aripiprazole 15 mg by mouth, as a one-time dose, has been ordered and he assessed for efficacy. (2) Substance abuse: 02/25 - Pt has reported history of substance abuse, and recommendation has consistently been for avoidance of substances with significant abuse potential. - PDMP queried - most recent prescriptions below - lorazepam 0.5mg #60 tabs for 30 day supply - Dr. Alves - filled 02/12/2019 - alprazolam 0.5mg #90 tabs for 30 day supply - Dr. Lopez - filled 01/16/2019 - temazepam 30mg #30 caps for 30 day supply - Dr. Lopez - filled 01/16/2019 - Will continue lorazepam 0.5mg BID prn on admission, as only medication that is seemingly active - toxicology screen is negative for benzodiazepines, which questions if he has been taking the medication appropriately - Ideally will taper and discontinue the lorazepam, as recommendation remains that substances with abuse potential be avoided 02/26 -The patient's outpatient providers, during a meeting this morning, report that the patient tends to successfully convince physicians to prescribe benzodia zepines for him and that, in the past, he has abused him to the degree that he is practically obtunded. 02/27 -A repeat check of the PDMP reveals that the patient is consistently being prescribed lorazepam 0.5 mg twice daily (number 60/month) by a Dr. Brent Alves. He is also being prescribed alprazolam 0.[address] mg [address] Jeff Lopez, with the most recent previous prescription of alprazolam being on 01/16/[address] Lopez also prescribed temazepam 30 mg capsules #30 on 01/16/2019. According to his residential providers, no temazepam capsules were found among the patient's belongings. His most recent prescription for lorazepam 0.5 mg tablets was filled on 02/12/2019. 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 In the past, he reportedly has used clonazepam and temazepam. -I advised the patient that because of his history of misuse of benzodia zepines we would not be prescribing benzodiazepines during his hospital stay. An as needed order for lorazepam has not been used during hospital stay, and I discontinued the order today. (3) Hypertension: 02/25 - Continue home dose of clonidine 0.1mg qHS Inventory Assets Strengths: -Intelligence. Support of community providers. Well educated. Needs: Resume symptom-stabilizing medication regimen, coordinate care with retirement Risk Factors Assessment Male: Yes : Yes Do You Have Access To A Gun?: No Health Problems: Yes Mental Health Diagnoses: Yes Substance Use Disorders: Yes Protective Factors Assessment Sabianism Beliefs: No : No Responsible for Young Children: No Employed: No Stable Relationships: No Supportive Family: No Good Rapport with Provider: No Interval History Identifying Information SCOTT ROBERTO is a 73-year-old M who currently lives at a [facility] in [place]. Pt has a history of schizophrenia and is known to our unit from several previous admissions, most recently in 09/2016. Pt and was admitted on 02/24/19 16:40 on a 302 involuntary commitment for exacerbation of schizophrenia and heightened paranoia resulting in belief he needed to hide in a dumpster to seek refuge from impending bombings. Pt was found by [facility] staff and brought to the ED by police. 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 I met with the patient individually in order to assess his current mental status, evaluate his response to treatment, coordinate any necessary changes in treatment regimen with the patient, and address issues and concerns that may arise. The patient began by acknowledging that, in fact, he had been hiding in a dumpster, and he explained this behavior by saying that he needed to surround himself with a "ferrous barrier" in order to protect himself from "toxic raise" that he believes are being directed to him by entities that he believes are trying to kill him. He also tells me that he is" immediate danger" in the hospital because "secret agents" are likely to enter the hospital, in disguise, such as in a "dietitian's uniform," and inject him with a "lethal poison pin prick that will kill [him] in 2 seconds." Initially, the patient told me that he was not hearing voices that other people are not able to hear her and that he does not have a history of auditory hallucinations. When I met with him an hour or so later, he told me that he is regularly being distracted by by the voices that he is hearing, and describes auditory hallucinations. More specifically, he tells me that he hears the voices of men and women, and hears them much as one might hear someone talking to him on a telephone. He acknowledges that he realizes that no one else hears these voices, but attributes them to a "computer chip" that he believes has been implanted in his brain. The content of the voices, according the patient, includes threats to kill him and he quotes one recent voices saying, "We're going to kill you, and there is nothing you can do about it!" He does tell me that he realizes that he carries a diagnosis of schizophrenia, but also tells me that he does not believe that this is the correct diagnosis. 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 The patient n otes that the symptoms of toxoplasmosis are easily confused with the symptoms of schizophrenia, although he tells me that he does not know what those symptoms might be, at least not in his own case. The patient also reports that he believes that he can independently cure his infection with T. Gondii by taking [id number] medications such as methylene blue and folate. We discussed at some length the fact that he has been refusing prescribed psychiatric medications in the hospital, and his responses generally consistent with his insistence that he can cure his illness not with psychiatric medications but with methylene blue and folate. However, he was also able to understand that I believe that while those medications may or may not have a positive effect, in general, I am strongly recommending that he take a medicine for schizophrenia, such as aripiprazole and olanzapine. I also met this morning with his patient case coordinator and representatives of his residential rehabilitation program. All 3 confirmed that adherence with medications is often a problem with the patient, and that he will periodically except and then several days later began to refuse psychiatric medications. In fact, the events that precipitated the current admission appear to be precipitated by nonadherence with psychiatric medications. The patient's request is for various benzodiazepines, together with the aewq-wyz-foucnug supplements identified above. He confirms that he feels that he sometimes has trouble remembering what he has been told, but at the same time he is able to explain that his auditory hallucinations ("the voices") substantially interfere with his ability to concentrate, and he often becomes distracted when people attempt to provide him with information. Physical Exam Psychiatric Orientation: oriented x 3 Apperance: appropriately groomed Eye Contact: good eye contact The patient demonstrates choreoathetoid movements of his lower extremities, "pill rolling" movements in both hands, and abnormal movements of his facial musculature that are consistent with tardive dyskinesia. The patient is aware of these features, but attributes them to "nervousness." Speech: normal rate/rhythm/volume of speech Affect: + blunted affect "Nervous." Thought Process: + looseness of associations Thought Content: + delusions (As above, the patient believes that he is at risk of being fatally injured by ") As noted above, the patient reports that he believes that he is at risk of mortal injury from what he refers to as "toxic raise" that he believes are being directed towards him, intentionally, by densities that he believes are trying to kill him. He also tells us that he believes that he is at risk of being killed "within 2 seconds" by his enemies, persons whom he believes are likely to sneak into the hospital, possibly disguised as a ancillary health care worker of some sort, and stick him with a toxic "pin prick." Suicidal Thoughts: denies suicidal thoughts Homicidal Thoughts: denies homicidal thoughts Hallucinations: + auditory hallucinations; no visual hallucinations, no tactile hallucinations and no gustatory hallucinations Cognitive testing was rendered difficult because of the patient's tendency to obfuscate. He was able to recall details of a conversation that he and I had had approximately an hour earlier. Estimated Intelligence: + above average estimated intelligence Insight: + severely impaired insight Judgement: + severely impaired judgement Vital Signs (Past 24 Hours) Last Vital Signs Temp 36.3 C L 02/27/19 06:32 Pulse 78 02/27/19 06:33 Resp 18 02/27/19 06:32 BP 133/87 02/27/19 06:33 Pulse Ox 96 02/24/19 08:10 Results & Data Current Inpatient Medications Current Inpatient Medications: Current Inpatient Medications Acetaminophen (Tylenol) 650 mg PO Q4H PRN PRN Reason: Headache or Minor Fever Stop: 03/26/19 16:39 Al Hydrox/Mg Hydrox/Simethicone (Maalox) 30 ml PO Q4H PRN PRN Reason: GI Upset Stop: 03/26/19 16:39 Benztropine Mesylate (Cogentin) 0.5 mg PO BID [facility] Stop: 03/26/19 20:59 Last Admin: 02/27/19 08:21 Dose: Not Given Documented by: Bismuth Subsalicylate (Kaopectate) 15 ml PO PRN PRN PRN Reason: Loose Stool Stop: 03/26/19 16:39 Clonidine HCl (Catapres) 0.1 mg PO [facility] Stop: 03/26/19 20:59 Last Admin: 02/26/19 21:11 Dose: Not Given Documented by: Cyanocobalamin (Vitamin B-12) 500 mcg PO DAILY [facility] Stop: 03/27/19 08:59 Last Admin: 02/27/19 08:19 Dose: 500 mcg Documented by: Hydroxyzine HCl (Vistaril) 25 mg PO Q4H PRN PRN Reason: Anxiety Stop: 03/26/19 16:39 Hydroxyzine HCl (Vistaril) 50 mg PO HSZ PRN PRN Reason: Insomnia Stop: 03/26/19 16:39 Magnesium Hydroxide (Milk Of Magnesia) 30 ml PO DAILY PRN PRN Reason: Heartburn Stop: 03/26/19 16:39 Magnesium Oxide (Mag-Ox) 400 mg PO DAILY [facility] Stop: 03/27/19 08:59 Last Admin: 02/27/19 08:19 Dose: 400 mg Documented by: Miscellaneous (Remove Nicoderm Patch) 1 ea N/A HS [facility] Stop: 03/26/19 20:59 Last Admin: 02/26/19 21:11 Dose: Not Given Documented by: Multivitamins (Multivitamin Tab) 1 tab PO DAILY [facility] Stop: 03/27/19 08:59 Last Admin: 02/27/19 08:19 Dose: 1 tab Documented by: Nicotine (Nicoderm Cq) 14 mg TD QAM MAG Stop: 03/27/19 08:59 Last Admin: 02/27/19 08:21 Dose: Not Given Documented by: Olanzapine (Zyprexa) 20 mg PO HS MAG Stop: 03/26/19 20:59 Last Admin: 02/26/19 21:12 Dose: Not Given Documented by: Pyridoxine HCl (Vitamin B-6) 100 mg PO DAILY [facility] Stop: 03/27/19 08:59 Last Admin: 02/27/19 08:19 Dose: 100 mg Documented by: Sodium Chloride ([place] Nasal) 1 - 2 sprays NA PRN PRN PRN Reason: Nasal Dryness/Congestion Stop: 03/26/19 16:39 Mental Health & Subst Abuse Tx Therapist Name of Therapist: Sammy Auto Engine Mechanic Name of Auto Engine Mechanic: Mal Lopez Post Discharge Appointments Primary Care Physician Name Of Family Doctor: Dr. Lopez CPT Code CPT Code 70872 (1) Schizophrenia Schizophrenia type: paranoid schizophrenia Qualified Code(s): F20.0 - Paranoid schizophrenia (2) Hypertension Hypertension type: essential hypertension Qualified Code(s): I10 - Essential (primary) hypertension
[2019-02-27] MEDS ORDERED: ARIPiprazole 15 MG TAB PO ONE (11:15)
[2019-02-27] MEDS: cloNIDine HCL 0.1 MG TAB PO SCH (21:12)
[2019-02-28] MEDS: MULTIVITAMIN TAB PO SCH (09:01)
[2019-02-28] MEDS: ARIPiprazole 15 MG TAB PO SCH (09:01)
[2019-02-28] MEDS: BENZTROPINE MESYLATE 0.5 MG TAB PO SCH ×2 (09:01→21:31)
[2019-02-28] MEDS: NICOTINE 14 MG/24 HR PATCH TD SCH (09:01)
[2019-02-28] MEDS: MAGNESIUM OXIDE 400 MG TAB PO SCH (09:01)
[2019-02-28] MEDS: PYRIDOXINE HCL 50 MG TAB PO SCH (09:01)
[2019-02-28] MEDS: CYANOCOBALAMIN 500 MCG TABLET (VITAMIN B-12) PO SCH (09:01)
--- NOTE | 2019-02-28 12:26 | Psychiatric Progress Note ---
Date of Service February 28, 2019 Impression / Recommendations Impression 73-year-old male with schizophrenia who lives at the [facility] and was admitted involuntarily on 02/24/19 after rapidly decompensating when he stopped his olanzapine 1-2 weeks ago. He became floridly delusional and was combative with [facility] staff which led to hospitalization. He is refusing to take olanzapine, or any other antipsychotic, here. He continues to endorse auditory hallucinations and belief that he has a microchip in his brain. We will file for 303 involuntary commitment and recommend medications over objection, as his psychotic symptoms are unlikely to improve without treatment. He remains at high risk of harm to both himself or others, and inpatient treatment is medically necessary. The patient was retained at his 303 hearing, and at his hearing the patient's only statement was to say that he would agree to the treatment recommendations made by the "doctors" in the hospital. He remains floridly psychotic, with symptoms that include persistent and intrusive auditory hallucinations, of a persecutory content, persecutory delusional believes, and disorganized thinking. He had been refusing, consistently, psychiatric medications, but compliant with trial of aripiprazole since 303 hearing. (1) Schizophrenia: 02/25 - Continue home medication regimen - as refusing offerings of his antipsychotic, will likely require olanzapine IM (or alternative agent) over objection, given clear evidence of paranoia and delusional thought process - previously stabilized on this medication - Pt agreeable to taking all other medications, with exception of antipsychotic as mentioned above - Admitted to a locked inpatient behavioral health unit, on q15 minute safety checks - Encourage medication initiation/adjustments as indicated - Encourage participation in group and recreational therapies - Gather collateral information from outpatient providers and fdc staff - Suggest family meeting to involve outpatient supports in safety planning - Reschedule appropriate aftercare appointments 02/26 -Patient indicates willingness to sign a release for the [facility] fdc, will get collateral from their staff. -File for 303 involuntary commitment to be held tomorrow. -Recommend medications over objection, with an IM Zyprexa backup for refusal of oral medication. Involve outpatient treatment team to discuss ways to improve stability and compliance; consider long-acting injectable antipsychotic. -Order fasting labs for monitoring on an atypical antipsychotic once patient is more cooperative. 02/27 -The patient was retrained at his involuntary commitment hearing (303) this morning. -He has continuously and consistently refused psychiatric medications to date. However, today, when I explained that that a option that might become necessary in his case is medication over objection, and an intramuscular form, the patient said that he understood and that he would try medications that I prescribe. His initial preference would be olanzapine, but because olanzapine is not available in a long acting depot form, we would first like to try aripiprazole. He indicates that he is taken aripiprazole in the past and has been able to tolerate it, although he does not believe that it has been particularly helpful. -A trial dose of aripiprazole 15 mg by mouth, as a one-time dose, has been ordered and he assessed for efficacy. 02/28 -Appears to be tolerating initiation of Abilify so far. Remains delusional, paranoid. May consider further titration tomorrow -Aricept discontinued at patient's request on 02/27/2019. The medication has not been demonstrated to be efficacious for cognitive impairment associated with long-standing schizophrenia however we should be vigilant for slowing of mentation following discontinuation. (2) Substance abuse: 02/25 - Pt has reported history of substance abuse, and recommendation has consistently been for avoidance of substances with significant abuse potential. - PDMP queried - most recent prescriptions below - lorazepam 0.5mg #60 tabs for 30 day supply - Dr. Alves - filled 02/12/2019 - alprazolam 0.5mg #90 tabs for 30 day supply - Dr. Lopez - filled 01/16/2019 - temazepam 30mg #30 caps for 30 day supply - Dr. Lopez - filled 01/16/2019 - Will continue lorazepam 0.5mg BID prn on admission, as only medication that is seemingly active - toxicology screen is negative for benzodiazepines, which questions if he has been taking the medication appropriately - Ideally will taper and discontinue the lorazepam, as recommendation remains that substances with abuse potential be avoided 02/26 -The patient's outpatient providers, during a meeting this morning, report that the patient tends to successfully convince physicians to prescribe benzodiazepines for him and that, in the past, he has abused him to the degree that he is practically obtunded. 02/27 -A repeat check of the PDMP reveals that the patient is consistently being prescribed lorazepam 0.5 mg twice daily (number 60/month) by a Dr. Brent Alves. He is also being prescribed alprazolam 0.[address] mg [address] Jeff Lopez, with the most recent previous prescription of alprazolam being on 01/16/[address] Lopez also prescribed temazepam 30 mg capsules #30 on 01/16/2019. According to his residential providers, no temazepam capsules were found among the patient's belongings. His most recent prescription for lorazepam 0.5 mg tablets was filled on 02/12/2019. 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 In the past, he reportedly has used clonazepam and temazepam. -I advised the patient that because of his history of misuse of benzodiazepines we would not be prescribing benzodiazepines during his hospital stay. An as needed order for lorazepam has not been used during hospital stay, and I discontinued the order today. (3) Hypertension: 02/25 - Continue home dose of clonidine 0.1mg qHS Inventory Assets Strengths: -Intelligence. Support of community providers. Well educated. Needs: Resume symptom-stabilizing medication regimen, coordinate care with fdc Risk Factors Assessment Male: Yes : Yes Do You Have Access To A Gun?: No Health Problems: Yes Mental Health Diagnoses: Yes Substance Use Disorders: Yes Protective Factors Assessment Roman Catholic Beliefs: No : No Responsible for Young Children: No Employed: No Stable Relationships: No Supportive Family: No Good Rapport with Provider: No Interval History Identifying Information SCOTT ROBERTO is a 73-year-old M who currently lives at a [facility] in [place]. Pt has a history of schizophrenia and is known to our unit from several previous admissions, most recently in 09/2016. Pt and was admitted on 02/24/19 16:40 on a 302 involuntary commitment for exacerbation of schizophrenia and heightened paranoia resulting in belief he needed to hide in a dumpster to seek refuge from impending bombings. Pt was found by [facility] staff and brought to the ED by police. Chief Complaint "It varies". Review of Systems Notes denies pain Sleep Information Total Hours of Sleep: 8 Sleep Comments: ate 5 boxes of cereal with milk before he could settle for bed/sleep Meal Information Percent Meal Consumed - Breakfast: 100 Percent Meal Consumed - Lunch: 80 Percent Meal Consumed - Dinner: 90 Subjective Subjective Patient was seen & assessed and interval progress reviewed with Treatment Team. Per staff patient has been attending some groups. Fairly appropriate with staff and peers. Has been compliant with the Abilify since 303 hearing on Saturday. He reportedly is able to return to his former disposition. Patient appears psychotic on interview. He is able to recall finding himself in the dumpster prior to admission and reports that it had something to do with a Faraday device. He denies feeling worried about the world ending or being attacked otherwise today. He does seem to believe that staff from the [facility] wanted him to commit suicide. He denies wanting to presently. He asks me to search for toxoplasmosis gondii and schizophrenia. He denies feeling restless or anxious and describes his mood as "bored." He reports he wanted to stop the Aricept which was discontinued yesterday secondary to potential expense. He denies that it was causing side effects. Physical Exam Psychiatric Orientation: alert and cooperative clean Eye Contact: good eye contact restless foot movements Speech: normal rate/rhythm/volume of speech calm bored Thought Process: + looseness of associations Thought Content: + delusions Suicidal Thoughts: denies suicidal thoughts Homicidal Thoughts: denies homicidal thoughts Hallucinations: + auditory hallucinations; no visual hallucinations Cognition: + recent memory not intact Estimated Intelligence: + above average estimated intelligence Insight: + severely impaired insight Judgement: + severely impaired judgement Vital Signs (Past 24 Hours) Last Vital Signs Temp 36.6 C 02/28/19 06:33 Pulse 87 02/28/19 06:33 Resp 14 02/28/19 06:33 BP 145/77 H 02/28/19 06:33 Pulse Ox 96 02/24/19 08:10 Results & Data Current Inpatient Medications Current Inpatient Medications: Current Inpatient Medications Acetaminophen (Tylenol) 650 mg PO Q4H PRN PRN Reason: Headache or Minor Fever Stop: 03/26/19 16:39 Al Hydrox/Mg Hydrox/Simethicone (Maalox) 30 ml PO Q4H PRN PRN Reason: GI Upset Stop: 03/26/19 16:39 Aripiprazole (Abilify) 15 mg PO QAM MAG Stop: 03/30/19 08:59 Last Admin: 02/28/19 09:01 Dose: 15 mg Documented by: Benztropine Mesylate (Barney) 0.5 mg PO BID [facility] Stop: 03/26/19 20:59 Last Admin: 02/28/19 09:01 Dose: Not Given Documented by: Bismuth Subsalicylate (Kaopectate) 15 ml PO PRN PRN PRN Reason: Loose Stool Stop: 03/26/19 16:39 Clonidine HCl (Catapres) 0.1 mg PO HS [facility] Stop: 03/26/19 20:59 Last Admin: 02/27/19 21:12 Dose: Not Given Documented by: Cyanocobalamin (Vitamin B-12) 500 mcg PO DAILY MAG Stop: 03/27/19 08:59 Last Admin: 02/28/19 09:01 Dose: 500 mcg Documented by: Hydroxyzine HCl (Vistaril) 25 mg PO Q4H PRN PRN Reason: Anxiety Stop: 03/26/19 16:39 Hydroxyzine HCl (Vistaril) 50 mg PO HSZ PRN PRN Reason: Insomnia Stop: 03/26/19 16:39 Magnesium Hydroxide (Milk Of Magnesia) 30 ml PO DAILY PRN PRN Reason: Heartburn Stop: 03/26/19 16:39 Magnesium Oxide (Mag-Ox) 400 mg PO DAILY [facility] Stop: 03/27/19 08:59 Last Admin: 02/28/19 09:01 Dose: 400 mg Documented by: Miscellaneous (Remove Nicoderm Patch) 1 ea N/A HS [facility] Stop: 03/26/19 20:59 Last Admin: 02/27/19 21:12 Dose: Not Given Documented by: Multivitamins (Multivitamin Tab) 1 tab PO DAILY [facility] Stop: 03/27/19 08:59 Last Admin: 02/28/19 09:01 Dose: 1 tab Documented by: Nicotine (Nicoderm Cq) 14 mg TD QAM [facility] Stop: 03/27/19 08:59 Last Admin: 02/28/19 09:01 Dose: Not Given Documented by: Pyridoxine HCl (Vitamin B-6) 100 mg PO DAILY [facility] Stop: 03/27/19 08:59 Last Admin: 02/28/19 09:01 Dose: 100 mg Documented by: Sodium Chloride ([place] Nasal) 1 - 2 sprays NA PRN PRN PRN Reason: Nasal Dryness/Congestion Stop: 03/26/19 16:39 Mental Health & Subst Abuse Tx Therapist Name of Therapist: Sammy Risk Consultant Name of Risk Consultant: Mal Lopez Post Discharge Appointments Primary Care Physician Name Of Family Doctor: Dr. Lopez CPT Code CPT Code 20597 (1) Schizophrenia Schizophrenia type: paranoid schizophrenia Qualified Code(s): F20.0 - Paranoid schizophrenia (2) Hypertension Hypertension type: essential hypertension Qualified Code(s): I10 - Essential (primary) hypertension
[2019-02-28] MEDS: cloNIDine HCL 0.1 MG TAB PO SCH (21:31)
[2019-03-01] MEDS: ARIPiprazole 15 MG TAB PO SCH (10:27)
[2019-03-01] MEDS: MAGNESIUM OXIDE 400 MG TAB PO SCH (10:28)
[2019-03-01] MEDS: MULTIVITAMIN TAB PO SCH (10:28)
[2019-03-01] MEDS: BENZTROPINE MESYLATE 0.5 MG TAB PO SCH ×2 (10:28→21:30)
[2019-03-01] MEDS: CYANOCOBALAMIN 500 MCG TABLET (VITAMIN B-12) PO SCH (10:29)
[2019-03-01] MEDS: PYRIDOXINE HCL 50 MG TAB PO SCH (10:29)
[2019-03-01] MEDS: NICOTINE 14 MG/24 HR PATCH TD SCH (10:29)
[2019-03-01] MEDS ORDERED: RISPERIDONE ODT 1MG PO PRN (10:37)
--- NOTE | 2019-03-01 13:50 | Psychiatric Progress Note ---
Date of Service March 01, 2019 Impression / Recommendations Impression 73-year-old male with schizophrenia who lives at the [facility] and was admitted involuntarily on 02/24/19 after rapidly decompensating when he stopped his olanzapine 1-2 weeks ago. He became floridly delusional and was combative with [facility] staff which led to hospitalization. He is refusing to take olanzapine, or any other antipsychotic, here. He continues to endorse auditory hallucinations and belief that he has a microchip in his brain. We will file for 303 involuntary commitment and recommend medications over objection, as his psychotic symptoms are unlikely to improve without treatment. He remains at high risk of harm to both himself or others, and inpatient treatment is medically necessary. The patient was retained at his 303 hearing, and at his hearing the patient's only statement was to say that he would agree to the treatment recommendations made by the "doctors" in the hospital. He remains floridly psychotic, with symptoms that include persistent and intrusive auditory hallucinations, of a persecutory content, persecutory delusional believes, and disorganized thinking. He had been refusing, consistently, psychiatric medications, but compliant with trial of aripiprazole since 303 hearing. (1) Schizophrenia: 02/25 - Continue home medication regimen - as refusing offerings of his antipsychotic, will likely require olanzapine IM (or alternative agent) over objection, given clear evidence of paranoia and delusional thought process - previously stabilized on this medication - Pt agreeable to taking all other medications, with exception of antipsychotic as mentioned above - Admitted to a locked inpatient behavioral health unit, on q15 minute safety checks - Encourage medication initiation/adjustments as indicated - Encourage participation in group and recreational therapies - Gather collateral information from outpatient providers and [facility] staff - Suggest family meeting to involve outpatient supports in safety planning - Reschedule appropriate aftercare appointments 02/26 -Patient indicates willingness to sign a release for the [facility], will get collateral from their staff. -File for 303 involuntary commitment to be held tomorrow. -Recommend medications over objection, with an IM Zyprexa backup for refusal of oral medication. Involve outpatient treatment team to discuss ways to improve stability and compliance; consider long-acting injectable antipsychotic. -Order fasting labs for monitoring on an atypical antipsychotic once patient is more cooperative. 02/27 -The patient was retrained at his involuntary commitment hearing (303) this morning. -He has continuously and consistently refused psychiatric medications to date. However, today, when I explained that that a option that might become necessary in his case is medication over objection, and an intramuscular form, the patient said that he understood and that he would try medications that I prescribe. His initial preference would be olanzapine, but because olanzapine is not available in a long acting depot form, we would first like to try aripiprazole. He indicates that he is taken aripiprazole in the past and has been able to tolerate it, although he does not believe that it has been particularly helpful. -A trial dose of aripiprazole 15 mg by mouth, as a one-time dose, has been ordered and he assessed for efficacy. 02/28 -Appears to be tolerating initiation of Abilify so far. Remains delusional, paranoid. May consider further titration tomorrow -Aricept discontinued at patient's request on 02/27/2019. The medication has not been demonstrated to be efficacious for cognitive impairment associated with long-standing schizophrenia however we should be vigilant for slowing of mentation following discontinuation. 03/02 Patient fixated and irrational regarding access to clothing item as above today. Hospital environment becoming incorporated and delusions. Consider possibility that the aripiprazole is contributing to activation. We will increase to 20 mg tomorrow and also start Risperdal 1 mg p.o. twice daily as as needed. (2) Substance abuse: 02/25 - Pt has reported history of substance abuse, and recommendation has consistently been for avoidance of substances with significant abuse potential. - PDMP queried - most recent prescriptions below - lorazepam 0.5mg #60 tabs for 30 day supply - Dr. Alves - filled 02/12/2019 - alprazolam 0.5mg #90 tabs for 30 day supply - Dr. Lopez - filled 01/16/2019 - temazepam 30mg #30 caps for 30 day supply - Dr. Lopez - filled 01/16/2019 - Will continue lorazepam 0.5mg BID prn on admission, as only medication that is seemingly active - toxicology screen is negative for benzodiazepines, which questions if he has been taking the medication appropriately - Ideally will taper and discontinue the lorazepam, as recommendation remains that substances with abuse potential be avoided 02/26 -The patient's outpatient providers, during a meeting this morning, report that the patient tends to successfully convince physicians to prescribe benzodiazepines for him and that, in the past, he has abused him to the degree that he is practically obtunded. 02/27 -A repeat check of the PDMP reveals that the patient is consistently being prescribed lorazepam 0.5 mg twice daily (number 60/month) by a Dr. Rock Alves. He is also being prescribed alprazolam 0.[address] mg [address] Jeff Lopez, with the most recent previous prescription of alprazolam being on 01/16/[address] Lopez also prescribed temazepam 30 mg capsules #30 on 01/16/2019. According to his residential providers, no temazepam capsules were found among the patient's belongings. His most recent prescription for lorazepam 0.5 mg tablets was filled on 02/12/2019. 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 In the past, he reportedly has used clonazepam and temazepam. -I advised the patient that because of his history of misuse of benzodiazepines we would not be prescribing benzodiazepines during his hospital stay. An as needed order for lorazepam has not been used during hospital stay, and I discontinued the order today. (3) Hypertension: 02/25 - Continue home dose of clonidine 0.1mg qHS 03/01 Watch mildly elevated blood pressures as patient has been refusing clonidine Inventory Assets Strengths: -Intelligence. Support of community providers. Well educated. Needs: Resume symptom-stabilizing medication regimen, coordinate care with [facility] Risk Factors Assessment Male: Yes : Yes Do You Have Access To A Gun?: No Health Problems: Yes Mental Health Diagnoses: Yes Substance Use Disorders: Yes Protective Factors Assessment Rastafari Beliefs: No : No Responsible for Young Children: No Employed: No Stable Relationships: No Supportive Family: No Good Rapport with Provider: No Interval History Identifying Information SCOTT ROBERTO is a 73-year-old M who currently lives at a [facility] in [place] Pt has a history of schizophrenia and is known to our unit from several previous admissions, most recently in 09/2016. Pt and was admitted on 02/24/19 16:40 on a 302 involuntary commitment for exacerbation of schizophrenia and heightened paranoia resulting in belief he needed to hide in a dumpster to seek refuge from impending bombings. Pt was found by [facility] staff and brought to the ED by police. Chief Complaint "I do not want to talk to you". Review of Systems Notes Patient non-participatory in review of systems Sleep Information Total Hours of Sleep: 7.5 Sleep Comments: ate 5 boxes of cereal with milk before he could settle for bed/sleep Meal Information Percent Meal Consumed - Breakfast: 100 Percent Meal Consumed - Lunch: 100 Percent Meal Consumed - Dinner: 90 Subjective Subjective Patient was seen & assessed and interval progress reviewed with Treatment Team. Patient is observed walking across the common area in only a T shirt and red underwear. I initially assumed he was disorganized however it appears this was an act of protest as he had been denied access to stretchy pants secondary to concern for safety risk per unit policy. In discussing this with nursing staff it appears the patient came in with multiple pairs of similar pants however the older pair that he had been wearing after being washed did not have the same elastic quality as the new article of clothing. Patient was quite angry when he was told that the new pair of pants were not allowed per policy. When I attempted to talk this through with him he became angry and shut down stating emphatically that he did not want to talk to me and "let me escort you out." He was not physically aggressive. Ultimately he did put on a different pair of pants. Per nursing he has appeared more delusional in the past 24 hours incorporating the hospital and his delusions believing that the chatter in the [facility] was being controlled at the [facility] and he planned to make some calls to try to have it stopped. He has been refusing at bedtime medications but has been taking the Abilify. Staff also note he was sexually inappropriate last evening in group describing his mood as "horny." Physical Exam Psychiatric Orientation: alert; + uncooperative Apperance: + inappropriately dressed Eye Contact: good eye contact Motor Behavior: steady gait and station Speech: no pressured speech Affect: + angry affect Mood: + angry mood Thought Process: + perseveration and + concrete thought process; + thought process not linear or logical Thought Content: + preoccupation and + delusions Insight: + severely impaired insight Judgement: + severely impaired judgement Vital Signs (Past 24 Hours) Last Vital Signs Temp 37 C 03/01/19 06:34 Pulse 77 03/01/19 06:34 Resp 12 03/01/19 06:34 BP 143/90 H 03/01/19 06:34 Pulse Ox 96 02/24/19 08:10 Results & Data Current Inpatient Medications Current Inpatient Medications: Current Inpatient Medications Acetaminophen (Tylenol) 650 mg PO Q4H PRN PRN Reason: Headache or Minor Fever Stop: 03/26/19 16:39 Al Hydrox/Mg Hydrox/Simethicone (Maalox) 30 ml PO Q4H PRN PRN Reason: GI Upset Stop: 03/26/19 16:39 Aripiprazole (Abilify) 20 mg PO QAM [facility] Stop: 04/01/19 08:59 Benztropine Mesylate (Cogentin) 0.5 mg PO BID [facility] Stop: 03/26/19 20:59 Last Admin: 03/01/19 10:28 Dose: Not Given Documented by: Bismuth Subsalicylate (Kaopectate) 15 ml PO PRN PRN PRN Reason: Loose Stool Stop: 03/26/19 16:39 Clonidine HCl (Catapres) 0.1 mg PO HS [facility] Stop: 03/26/19 20:59 Last Admin: 02/28/19 21:31 Dose: Not Given Documented by: Cyanocobalamin (Vitamin B-12) 500 mcg PO DAILY [facility] Stop: 03/27/19 08:59 Last Admin: 03/01/19 10:29 Dose: 500 mcg Documented by: Hydroxyzine HCl (Vistaril) 25 mg PO Q4H PRN PRN Reason: Anxiety Stop: 03/26/19 16:39 Hydroxyzine HCl (Vistaril) 50 mg PO HSZ PRN PRN Reason: Insomnia Stop: 03/26/19 16:39 Magnesium Hydroxide (Milk Of Magnesia) 30 ml PO DAILY PRN PRN Reason: Heartburn Stop: 03/26/19 16:39 Magnesium Oxide (Mag-Ox) 400 mg PO DAILY [facility] Stop: 03/27/19 08:59 Last Admin: 03/01/19 10:28 Dose: 400 mg Documented by: Miscellaneous (Remove Nicoderm Patch) 1 ea N/A HS [facility] Stop: 03/26/19 20:59 Last Admin: 02/28/19 21:31 Dose: Not Given Documented by: Multivitamins (Multivitamin Tab) 1 tab PO DAILY MAG Stop: 03/27/19 08:59 Last Admin: 03/01/19 10:28 Dose: 1 tab Documented by: Nicotine (Nicoderm Cq) 14 mg TD QAM MAG Stop: 03/27/19 08:59 Last Admin: 03/01/19 10:29 Dose: Not Given Documented by: Pyridoxine HCl (Vitamin B-6) 100 mg PO DAILY MAG Stop: 03/27/19 08:59 Last Admin: 03/01/19 10:29 Dose: 100 mg Documented by: Risperidone (Risperdal M) 1 mg PO BID PRN PRN Reason: psychosis Stop: 03/31/19 10:36 Sodium Chloride ([place] Nasal) 1 - 2 sprays NA PRN PRN PRN Reason: Nasal Dryness/Congestion Stop: 03/26/19 16:39 Mental Health & Subst Abuse Tx Therapist Name of Therapist: Denies Advisory Software Engineer Name of Advisory Software Engineer: Shruti Lopez Phone Number for Advisory Software Engineer: Case Management Appointment Comment: [phone], [place] [address] Post Discharge Appointments Primary Care Physician Name Of Family Doctor: Dr. Lopez Contact Information Discharge Discharge Address: [address] [place] [address], [place] [address] CPT Code CPT Code 58147 (1) Schizophrenia Schizophrenia type: paranoid schizophrenia Qualified Code(s): F20.0 - Paranoid schizophrenia (2) Hypertension Hypertension type: essential hypertension Qualified Code(s): I10 - Essential (primary) hypertension
[2019-03-01] MEDS: cloNIDine HCL 0.1 MG TAB PO SCH (21:30)
[2019-03-02] MEDS: ARIPiprazole 10 MG TAB PO SCH (08:45)
[2019-03-02] MEDS: MULTIVITAMIN TAB PO SCH (08:46)
[2019-03-02] MEDS: BENZTROPINE MESYLATE 0.5 MG TAB PO SCH ×2 (08:46→21:40)
[2019-03-02] MEDS: MAGNESIUM OXIDE 400 MG TAB PO SCH (08:46)
[2019-03-02] MEDS: CYANOCOBALAMIN 500 MCG TABLET (VITAMIN B-12) PO SCH (08:47)
[2019-03-02] MEDS: NICOTINE 14 MG/24 HR PATCH TD SCH (08:47)
[2019-03-02] MEDS: PYRIDOXINE HCL 50 MG TAB PO SCH (08:47)
--- NOTE | 2019-03-02 13:24 | Psychiatric Progress Note ---
Date of Service March 02, 2019 Impression / Recommendations Impression 73-year-old male with schizophrenia who lives at the [facility] and was admitted involuntarily on 02/24/19 after rapidly decompensating when he stopped his olanzapine 1-2 weeks ago. He became floridly delusional and was combative with [facility] staff which led to hospitalization. He is refusing to take olanzapine, or any other antipsychotic, here. He continues to endorse auditory hallucinations and belief that he has a microchip in his brain. The patient was retained at his 303 hearing, and at his hearing the patient's only statement was to say that he would agree to the treatment recommendations made by the "doctors" in the hospital. He remains floridly psychotic, with symptoms that include persistent and intrusive auditory hallucinations, of a persecutory content, persecutory delusional believes, and disorganized thinking. He had been refusing, consistently, psychiatric medications, but compliant with trial of aripiprazole since 303 hearing, since titrated to a dose of 20mg qAM. If tolerating and seemingly effective, plan will be for conversation to GAGAN Aleman. (1) Schizophrenia: 02/25 - Continue home medication regimen - as refusing offerings of his antipsychotic, will likely require olanzapine IM (or alternative agent) over objection, given clear evidence of paranoia and delusional thought process - previously stabilized on this medication - Pt agreeable to taking all other medications, with exception of antipsychotic as mentioned above - Admitted to a locked inpatient behavioral health unit, on q15 minute safety checks - Encourage medication initiation/adjustments as indicated - Encourage participation in group and recreational therapies - Gather collateral information from outpatient providers and residential staff - Suggest family meeting to involve outpatient supports in safety planning - Reschedule appropriate aftercare appointments 02/26 -Patient indicates willingness to sign a release for the [facility] residential, will get collateral from their staff. -File for 303 involuntary commitment to be held tomorrow. -Recommend medications over objection, with an IM Zyprexa backup for refusal of oral medication. Involve outpatient treatment team to discuss ways to improve stability and compliance; consider long-acting injectable antipsychotic. -Order fasting labs for monitoring on an atypical antipsychotic once patient is more cooperative. 02/27 -The patient was retrained at his involuntary commitment hearing (303) this morning. -He has continuously and consistently refused psychiatric medications to ignacio e. However, today, when I explained that that a option that might become necessary in his case is medication over objection, and an intramuscular form, the patient said that he understood and that he would try medications that I prescribe. His initial preference would be olanzapine, but because olanzapine is not available in a long acting depot form, we would first like to try aripiprazole. He indicates that he is taken aripiprazole in the past and has been able to tolerate it, although he does not believe that it has been particularly helpful. -A trial dose of aripiprazole 15 mg by mouth, as a one-time dose, has been ordered and he assessed for efficacy. 02/28 -Appears to be tolerating initiation of Abilify so far. Remains delusional, paranoid. May consider further titration tomorrow -Aricept discontinued at patient's request on 02/27/2019. The medication has not been demonstrated to be efficacious for cognitive impairment associated with long-standing schizophrenia however we should be vigilant for slowing of mentation following discontinuation. 03/01 Patient fixated and irrational regarding access to clothing item as above today. Hospital environment becoming incorporated and delusions. Consider possibility that the aripiprazole is contributing to activation. We will increase to 20 mg tomorrow and also start Risperdal 1 mg p.o. twice daily as as needed. 03/02 - Continue with aripiprazole at 20mg daily, consider need for further titration - if tolerating and effective, eventual plan will be for conversion to Abilify Maintena - Pt has not yet utilized risperidone (2) Substance abuse: 02/25 - Pt has reported history of substance abuse, and recommendation has consistently been for avoidance of substances with significant abuse potential. - PDMP queried - most recent prescriptions below - lorazepam 0.5mg #60 tabs for 30 day supply - Dr. Alves - filled 02/12/2019 - alprazolam 0.5mg #90 tabs for 30 day supply - Dr. Lopez - filled 01/16/2019 - temazepam 30mg #30 caps for 30 day supply - Dr. Lopez - filled 01/16/2019 - Will continue lorazepam 0.5mg BID prn on admission, as only medication that is seemingly active - toxicology screen is negative for benzodiazepines, which questions if he has been taking the medication appropriately - Ideally will taper and discontinue the lorazepam, as recommendation remains that substances with abuse potential be avoided 02/26 -The patient's outpatient providers, during a meeting this morning, report that the patient tends to successfully convince physicians to prescribe benzodiazepines for him and that, in the past, he has abused him to the degree that he is practically obtunded. 02/27 -A repeat check of the PDMP reveals that the patient is consistently being prescribed lorazepam 0.5 mg twice daily (number 60/month) by a Dr. Brent Alves. He is also being prescribed alprazolam 0.[address] mg [address] Jeff Lopez, with the most recent previous prescription of alprazolam being on 01/16/[address] Lopez also prescribed temazepam 30 mg capsules #30 on 01/16/2019. According to his residential providers, no temazepam capsules were found among the patient's belongings. His most recent prescription for lorazepam 0.5 mg tablets was filled on 02/12/2019. 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 In the past, he reportedly has used clonazepam and temazepam. -I advised the patient that because of his history of misuse of benzodiazepines we would not be prescribing benzodiazepines during his hospital stay. An as needed order for lorazepam has not been used during hospital stay, and I discontinued the order today. (3) Hypertension: 02/25 - Continue home dose of clonidine 0.1mg qHS 03/01 Watch mildly elevated blood pressures as patient has been refusing clonidine Inventory Assets Strengths: -Intelligence. Support of community providers. Well educated. Needs: Resume symptom-stabilizing medication regimen, coordinate care with residential Risk Factors Assessment Male: Yes : Yes Do You Have Access To A Gun?: No Health Problems: Yes Mental Health Diagnoses: Yes Substance Use Disorders: Yes Protective Factors Assessment Advent Beliefs: No : No Responsible for Young Children: No Employed: No Stable Relationships: No Supportive Family: No Good Rapport with Provider: No Interval History Identifying Information SCOTT ROBERTO is a 73-year-old M who currently lives at a [facility] in [place]. Pt has a history of schizophrenia and is known to our unit from several previous admissions, most recently in 09/2016. Pt and was admitted on 02/24/19 16:40 on a 302 involuntary commitment for exacerbation of schizophrenia and heightened paranoia resulting in belief he needed to hide in a dumpster to seek refuge from impending bombings. Pt was found by [facility] staff and brought to the ED by police. Chief Complaint "Hi...yeah, I'm not talking to you. You just have to take the libertarian lines." Review of Systems Notes Unwilling to review with this provider during today's encounter; however, does not verbalize any physical complaints. Sleep Information Total Hours of Sleep: 8 Sleep Comments: ate 5 boxes of cereal with milk before he could settle for bed/sleep Meal Information Percent Meal Consumed - Breakfast: 100 Percent Meal Consumed - Lunch: 100 Percent Meal Consumed - Dinner: 100 Subjective Subjective Patient was seen & assessed and interval progress reviewed with Treatment Team. Staff reports the patient has been rather inappropriate and sexually preoccupied during groups. Today, it was reported the patient had verbalized fixation on a "parasite" causing schizophrenia and demanded to be tested. He would benefit from a private room if the opportunity is present due to these behaviors. Pt reported last evening hearing voices coming from the alejandro. Patient was seen today to assess progress since admission. He was observed to be pacing the activity room and looking out the window while the remainder of the milieu was eating lunch. Pt meekly says "Hi..." This provider introduced herself and patient requested this provider's title. This provider verbalized awareness that the patient is uncomfortable with Physician Assistants, but had hoped to talk with the patient to continue treatment progress. Pt immediately turns his back to this provider and states, "Yeah, I'm not talking to you. You just have to take the libertarian lines." He reiterated multiple times that he would not be harman ling to engage in conversation with this provider. He then said, "you know what you can do for me, get me a pack of cigarettes and a hot pipe gauger." Pt was informed of this facility's nonsmoking policy - which patient interrupted by stating "see, I ask you for one thing and you can't even help with that - get out. GET OUT!" He was asked if he had any other needs before this provider left the room, he declined to answer. Physical Exam Psychiatric Orientation: alert, oriented to person, oriented to place and + guarded (highly); + uncooperative Apperance: appropriately groomed; + inappropriately dressed (wearing very tight cloth pants and a sweater) Eye Contact: + fair eye contact Motor Behavior: steady gait and station (pacing the room, apparent restlessness) Speech: normal rate/rhythm/volume of speech (though very brief responses to this provider's questions) Affect: + anxious affect and + irritable affect Unwilling to engage in discussion regarding current mood Thought Process: + perseveration and + concrete thought process; + thought process not goal directed, + thought process not linear or logical and + thought process not clear or coherent Thought Content: + preoccupation and + delusions Insight: + severely impaired insight Judgement: + severely impaired judgement Vital Signs (Past 24 Hours) Last Vital Signs Temp 36.6 C 03/02/19 06:50 Pulse 76 03/02/19 06:51 Resp 18 03/02/19 06:50 BP 114/67 03/02/19 06:51 Pulse Ox 96 02/24/19 08:10 Results & Data Current Inpatient Medications Current Inpatient Medications: Current Inpatient Medications Acetaminophen (Tylenol) 650 mg PO Q4H PRN PRN Reason: Headache or Minor Fever Stop: 03/26/19 16:39 Al Hydrox/Mg Hydrox/Simethicone (Maalox) 30 ml PO Q4H PRN PRN Reason: GI Upset Stop: 03/26/19 16:39 Aripiprazole (Abilify) 20 mg PO QAM [facility] Stop: 04/01/19 08:59 Last Admin: 03/02/19 08:45 Dose: 20 mg Documented by: Benztropine Mesylate (Cogentin) 0.5 mg PO BID [facility] Stop: 03/26/19 20:59 Last Admin: 03/02/19 08:46 Dose: Not Given Documented by: Bismuth Subsalicylate (Kaopectate) 15 ml PO PRN PRN PRN Reason: Loose Stool Stop: 03/26/19 16:39 Clonidine HCl (Catapres) 0.1 mg PO HS [facility] Stop: 03/26/19 20:59 Last Admin: 03/01/19 21:30 Dose: 0.1 mg Documented by: Cyanocobalamin (Vitamin B-12) 500 mcg PO DAILY [facility] Stop: 03/27/19 08:59 Last Admin: 03/02/19 08:47 Dose: 500 mcg Documented by: Hydroxyzine HCl (Vistaril) 25 mg PO Q4H PRN PRN Reason: Anxiety Stop: 03/26/19 16:39 Hydroxyzine HCl (Vistaril) 50 mg PO HSZ PRN PRN Reason: Insomnia Stop: 03/26/19 16:39 Magnesium Hydroxide (Milk Of Magnesia) 30 ml PO DAILY PRN PRN Reason: Heartburn Stop: 03/26/19 16:39 Magnesium Oxide (Mag-Ox) 400 mg PO DAILY MAG Stop: 03/27/19 08:59 Last Admin: 03/02/19 08:46 Dose: 400 mg Documented by: Miscellaneous (Remove Nicoderm Patch) 1 ea N/A HS MAG Stop: 03/26/19 20:59 Last Admin: 03/01/19 21:34 Dose: Not Given Documented by: Multivitamins (Multivitamin Tab) 1 tab PO DAILY [facility] Stop: 03/27/19 08:59 Last Admin: 03/02/19 08:46 Dose: 1 tab Documented by: Nicotine (Nicoderm Cq) 14 mg TD QAM MAG Stop: 03/27/19 08:59 Last Admin: 03/02/19 08:47 Dose: Not Given Documented by: Pyridoxine HCl (Vitamin B-6) 100 mg PO DAILY MAG Stop: 03/27/19 08:59 Last Admin: 03/02/19 08:47 Dose: 100 mg Documented by: Risperidone (Risperdal M) 1 mg PO BID PRN PRN Reason: psychosis Stop: 03/31/19 10:36 Sodium Chloride (Owsley Nasal) 1 - 2 sprays NA PRN PRN PRN Reason: Nasal Dryness/Congestion Stop: 03/26/19 16:39 Mental Health & Subst Abuse Tx Therapist Name of Therapist: Denies Table Top Tile Setter Name of Table Top Tile Setter: Shruti Lopez Phone Number for Table Top Tile Setter: Case Management Appointment Comment: [phone], [place] [address] Post Discharge Appointments Primary Care Physician Name Of Family Doctor: Dr. Lopez Contact Information Discharge Discharge Address: [address] [place] [address], [place] [address] CPT Code CPT Code 75497 (1) Schizophrenia Schizophrenia type: paranoid schizophrenia Qualified Code(s): F20.0 - Paranoid schizophrenia (2) Hypertension Hypertension type: essential hypertension Qualified Code(s): I10 - Essential (primary) hypertension
[2019-03-02] MEDS: cloNIDine HCL 0.1 MG TAB PO SCH (21:40)
[2019-03-03] MEDS: ARIPiprazole 10 MG TAB PO SCH (07:45)
[2019-03-03] MEDS: BENZTROPINE MESYLATE 0.5 MG TAB PO SCH ×2 (07:45→21:09)
[2019-03-03] MEDS: CYANOCOBALAMIN 500 MCG TABLET (VITAMIN B-12) PO SCH (07:46)
[2019-03-03] MEDS: MULTIVITAMIN TAB PO SCH (07:46)
[2019-03-03] MEDS: NICOTINE 14 MG/24 HR PATCH TD SCH (07:46)
[2019-03-03] MEDS: MAGNESIUM OXIDE 400 MG TAB PO SCH (07:46)
[2019-03-03] MEDS: PYRIDOXINE HCL 50 MG TAB PO SCH (07:47)
[2019-03-03] MEDS ORDERED: ARIPiprazole 10 MG TAB PO SCH (09:00)
--- NOTE | 2019-03-03 14:07 | Psychiatric Progress Note ---
Date of Service March 03, 2019 Impression / Recommendations Impression 73-year-old male with schizophrenia who lives at the [facility] and was admitted involuntarily with delusions, hallucinations, irritability and erratic behavior on 02/24/19 after rapidly decompensating 1-2 weeks after stopping olanzapine. He was found in a dumpster, floridly delusional, and was combative with [facility] staff. He refused resumption of olanzapine, but ultimately agreed to take aripiprazole. He continues to endorse auditory hallucinations and belief that he has a microchip in his brain. He is on a 303 as of 02/27/19. He remains floridly psychotic, with symptoms that include persistent and intrusive auditory hallucinations with persecutory content, persecutory delusional believes, and disorganized thinking. He had been refusing, consistently, psychiatric medications, but compliant with trial of aripiprazole since 303 hearing, since titrated to a dose of 20mg qAM. If tolerated and effective, plan will be for conversation to GAGAN Aleman. (1) Schizophrenia: 02/25 - Continue home medication regimen - as refusing offerings of his antipsychotic, will likely require olanzapine IM (or alternative agent) over objection, given clear evidence of paranoia and delusional thought process - previously stabilized on this medication - Pt agreeable to taking all other medications, with exception of antipsychotic as mentioned above - Admitted to a locked inpatient behavioral health unit, on q15 minute safety checks - Encourage medication initiation/adjustments as indicated - Encourage participation in group and recreational therapies - Gather collateral information from outpatient providers and [facility] staff - Suggest family meeting to involve outpatient supports in safety planning - Reschedule appropriate aftercare appointments 02/26 -Patient indicates willingness to sign a release for the [facility], will get collateral from their staff. -File for 303 involuntary commitment to be held tomorrow. -Recommend medications over objection, with an IM Zyprexa backup for refusal of oral medication. Involve outpatient treatment team to discuss ways to improve stability and compliance; consider long-acting injectable antipsychotic. -Order fasting labs for monitoring on an atypical antipsychotic once patient is more cooperative. 02/27 -The patient was retrained at his involuntary commitment hearing (303) this morning. -He has continuously and consistently refused psychiatric medications to date. However, today, when I explained that that a option that might become necessary in his case is medication over objection, and an intramuscular form, the patient said that he understood and that he would try medications that I prescribe. His initial preference would be olanzapine, but because olanzapine is not available in a long acting depot form, we would first like to try aripiprazole. He indicates that he is taken aripiprazole in the past and has been able to tolerate it, although he does not believe that it has been particularly helpful. -A trial dose of aripiprazole 15 mg by mouth, as a one-time dose, has been ordered and he assessed for efficacy. 02/28 -Appears to be tolerating initiation of Abilify so far. Remains delusional, paranoid. May consider further titration tomorrow -Aricept discontinued at patient's request on 02/27/2019. The medication has not been demonstrated to be efficacious for cognitive impairment associated with long-standing schizophrenia however we should be vigilant for slowing of mentation following discontinuation. 03/01 Patient fixated and irrational regarding access to clothing item as above today. Hospital environment becoming incorporated and delusions. Consider possibility that the aripiprazole is contributing to activation. We will increase to 20 mg tomorrow and also start Risperdal 1 mg p.o. twice daily as as needed. 03/02 - Continue with aripiprazole at 20mg daily, consider need for further titration - if tolerating and effective, eventual plan will be for conversion to Abilify Maintena - Pt has not yet utilized risperidone 03/03 - Increase aripiprazole to 25mg (equivalent to 30mg pill) and change to liquid formulation to decrease risk of cheeking/nonadherence, as patient does not believe he needs medication and had been noncompliant prior to hospitalization. - Fasting glucose and lipid profile ordered for tomorrow for monitoring on an atypical antipsychotic. - Private room due to psychosis, agitation, and inappropriate disrobing/sexual behavior. - Meeting with [facility] and [facility] staff when patient able to tolerate. (2) Substance abuse: 02/25 - Pt has reported history of substance abuse, and recommendation has consistently been for avoidance of substances with significant abuse potential. - PDMP queried - most recent prescriptions below - lorazepam 0.5mg #60 tabs for 30 day supply - Dr. Alves - filled 02/12/2019 - alprazolam 0.5mg #90 tabs for 30 day supply - Dr. Lopez - filled 01/16/2019 - temazepam 30mg #30 caps for 30 day supply - Dr. Lopez - filled 01/16/2019 - Will continue lorazepam 0.5mg BID prn on admission, as only medication that is seemingly active - toxicology screen is negative for benzodiazepines, which questions if he has been taking the medication appropriately - Ideally will taper and discontinue the lorazepam, as recommendation remains that substances with abuse potential be avoided 02/26 -The patient's outpatient providers, during a meeting this morning, report that the patient tends to successfully convince physicians to prescribe benzodiazepines for him and that, in the past, he has abused him to the degree that he is practically obtunded. 02/27 -A repeat check of the PDMP reveals that the patient is consistently being prescribed lorazepam 0.5 mg twice daily (number 60/month) by a Dr. Brent Alves. He is also being prescribed alprazolam 0.[address] mg [address] Jeff Lopez, with the most recent previous prescription of alprazolam being on 01/16/[address] Lopez also prescribed temazepam 30 mg capsules #30 on 01/16/2019. According to his residential providers, no temazepam capsules were found among the patient's belongings. His most recent prescription for lorazepam 0.5 mg tablets was filled on 02/12/2019. 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 In the past, he reportedly has used clonazepam and temazepam. -I advised the patient that because of his history of misuse of benzodiaz epines we would not be prescribing benzodiazepines during his hospital stay. An as needed order for lorazepam has not been used during hospital stay, and I discontinued the order today. 03/02 - Will need to coordinate care with his PCP and outpatient psychiatrist prior to discharge regarding the above. (3) Hypertension: 02/25 - Continue home dose of clonidine 0.1mg qHS 03/01 Watch mildly elevated blood pressures as patient has been refusing clonidine 03/03 - BP normal past two days, and low today Inventory Assets Strengths: -Intelligence. Support of community providers. Well educated. Needs: Resume symptom-stabilizing medication regimen, coordinate care with [facility] Risk Factors Assessment Male: Yes : Yes Do You Have Access To A Gun?: No Health Problems: Yes Mental Health Diagnoses: Yes Substance Use Disorders: Yes Protective Factors Assessment Protestant Beliefs: No : No Responsible for Young Children: No Employed: No Stable Relationships: No Supportive Family: No Good Rapport with Provider: No Interval History Identifying Information SCOTT ROBERTO is a 73-year-old M who currently lives at a [facility] in [place]. Pt has a history of schizophrenia and is known to our unit from several previous admissions, most recently in 09/2016. Pt and was admitted on 02/24/19 16:40 on a 302 involuntary commitment for exacerbation of schizophrenia and heightened paranoia resulting in belief he needed to hide in a dumpster to seek refuge from impending bombings. Pt was found by [facility] staff and brought to the ED by police. Chief Complaint "Okay". Review of Systems Sleep Information Total Hours of Sleep: 7.5 Sleep Comments: pt on q-15 minute checks Meal Information Percent Meal Consumed - Breakfast: 100 Percent Meal Consumed - Lunch: 100 Percent Meal Consumed - Dinner: 100 Subjective Subjective Patient was seen & assessed and interval progress reviewed with Nursing and social work. Staff report he has been agitated with hostile and sexually inappropriate behavior, coming out in only his underwear, and swearing at staff in group. His roommate has expressed discomfort with the patient. On my assessment, he says he is going to some groups but they're "never ever" useful, and he'd like them to focus on "what causes bipolar and schizophrenia, the research." He asks multiple questions about my training and "psychiatry classes," asks me to define schizophrenia, and says he needs to do more research about schizophrenia to find out "why I have it." He accepted an offer to print out UpToDate Patient Information for him. He states his auditory hallucinations have changed and are "more like a cavitation sound." He denies hearing voices, and when asked about delusions voiced on admission, he changes the subject abruptly and will not answer with related information. He does not think he needs antipsychotic medication and says it "does nothing" for him, and also denies side effects. Mood is "bored to here, there's nothing to do in the morning before breakfast." If he weren't in the hospital, he says he would "do everything," but can't or won't clarify this further. He denies safety concerns in the hospital, and says he wants to know when his outpatient psychiatrist is coming to meet with him, saying he knows it is in the law that he has to come see him "at least once in the hospital." Physical Exam Psychiatric Orientation: alert and cooperative (partially) Apperance: appropriately dressed, appropriately groomed and appeared stated age (younger than stated age) Eye Contact: good eye contact Motor Behavior: steady gait and station and no abnormal motor movements Speech: normal rate/rhythm/volume of speech irritated tone at times Affect: + irritable affect "Bored to in here." Thought Process: + tangential thought process Thought Content: + paranoid Suicidal Thoughts: denies suicidal thoughts Homicidal Thoughts: denies homicidal thoughts Hallucinations: + auditory hallucinations Cognition: + remote memory not intact and + attention not intact Insight: + severely impaired insight Judgement: + severely impaired judgement Vital Signs (Past 24 Hours) Last Vital Signs Temp 36.6 C 03/03/19 06:36 Pulse 70 03/03/19 06:36 Resp 18 03/03/19 06:36 BP 101/63 03/03/19 06:36 Pulse Ox 96 02/24/19 08:10 Results & Data Current Inpatient Medications Current Inpatient Medications: Current Inpatient Medications Acetaminophen (Tylenol) 650 mg PO Q4H PRN PRN Reason: Headache or Minor Fever Stop: 03/26/19 16:39 Al Hydrox/Mg Hydrox/Simethicone (Maalox) 30 ml PO Q4H PRN PRN Reason: GI Upset Stop: 03/26/19 16:39 Aripiprazole (Abilify) 25 mg PO QAM MAG Stop: 04/03/19 08:59 Benztropine Mesylate (Cogentin) 0.5 mg PO BID MAG Stop: 03/26/19 20:59 Last Admin: 03/03/19 07:45 Dose: Not Given Documented by: Bismuth Subsalicylate (Kaopectate) 15 ml PO PRN PRN PRN Reason: Loose Stool Stop: 03/26/19 16:39 Clonidine HCl (Catapres) 0.1 mg PO HS MAG Stop: 03/26/19 20:59 Last Admin: 03/02/19 21:40 Dose: 0.1 mg Documented by: Cyanocobalamin (Vitamin B-12) 500 mcg PO DAILY MAG Stop: 03/27/19 08:59 Last Admin: 03/03/19 07:46 Dose: 500 mcg Documented by: Hydroxyzine HCl (Vistaril) 25 mg PO Q4H PRN PRN Reason: Anxiety Stop: 03/26/19 16:39 Hydroxyzine HCl (Vistaril) 50 mg PO HSZ PRN PRN Reason: Insomnia Stop: 03/26/19 16:39 Magnesium Hydroxide (Milk Of Magnesia) 30 ml PO DAILY PRN PRN Reason: Heartburn Stop: 03/26/19 16:39 Magnesium Oxide (Mag-Ox) 400 mg PO DAILY MAG Stop: 03/27/19 08:59 Last Admin: 03/03/19 07:46 Dose: 400 mg Documented by: Miscellaneous (Remove Nicoderm Patch) 1 ea N/A HS [facility] Stop: 03/26/19 20:59 Last Admin: 03/02/19 21:40 Dose: Not Given Documented by: Multivitamins (Multivitamin Tab) 1 tab PO DAILY MAG Stop: 03/27/19 08:59 Last Admin: 03/03/19 07:46 Dose: 1 tab Documented by: Nicotine (Nicoderm Cq) 14 mg TD QAM MAG Stop: 03/27/19 08:59 Last Admin: 03/03/19 07:46 Dose: Not Given Documented by: Pyridoxine HCl (Vitamin B-6) 100 mg PO DAILY MAG Stop: 03/27/19 08:59 Last Admin: 03/03/19 07:47 Dose: 100 mg Documented by: Risperidone (Risperdal M) 1 mg PO BID PRN PRN Reason: psychosis Stop: 03/31/19 10:36 Sodium Chloride ([place] Nasal) 1 - 2 sprays NA PRN PRN PRN Reason: Nasal Dryness/Congestion Stop: 03/26/19 16:39 Mental Health & Subst Abuse Tx Therapist Name of Therapist: [facility] [employer] Name of Newspaper Clipper: Shruti Lopez Phone Number for Newspaper Clipper: Case Management Appointment Comment: [phone], [place] [address] Post Discharge Appointments Primary Care Physician Name Of Family Doctor: Dr. Lopez Contact Information Discharge Discharge Address: [address] [place] [address] CPT Code CPT Code 27630 (1) Schizophrenia Schizophrenia type: paranoid schizophrenia Qualified Code(s): F20.0 - Paranoid schizophrenia (2) Hypertension Hypertension type: essential hypertension Qualified Code(s): I10 - Essential (primary) hypertension
[2019-03-03] MEDS: cloNIDine HCL 0.1 MG TAB PO SCH (21:09)
[2019-03-04] MEDS: ARIPIprazole 1 MG/ML ORAL SOLN 150 ML BTL PO SCH (08:10)
[2019-03-04] MEDS: PYRIDOXINE HCL 50 MG TAB PO SCH (08:10)
[2019-03-04] MEDS: MULTIVITAMIN TAB PO SCH (08:11)
[2019-03-04] MEDS: MAGNESIUM OXIDE 400 MG TAB PO SCH (08:11)
[2019-03-04] MEDS: CYANOCOBALAMIN 500 MCG TABLET (VITAMIN B-12) PO SCH (08:11)
[2019-03-04] MEDS: BENZTROPINE MESYLATE 0.5 MG TAB PO SCH ×2 (08:14→21:14)
[2019-03-04] MEDS: NICOTINE 14 MG/24 HR PATCH TD SCH (08:15)
[2019-03-04 08:26] LABS: Glucose Fasting 83 mg/dl (70-99)
[2019-03-04 08:35] LABS: Chol HDL Ratio 4; Cholesterol 163 mg/dl (0-200); HDL Cholesterol 47 mg/dl; LDL Cholesterol Calculated 88 mg/dl; Triglycerides 141 mg/dl (0-150); VLDL Cholesterol 28 mg/dl
[2019-03-04] MEDS ORDERED: ARIPiprazole 15 MG TAB PO SCH (09:00)
[2019-03-04] MEDS ORDERED: ARIPiprazole 10 MG TAB PO SCH (09:00)
--- NOTE | 2019-03-04 10:03 | Psychiatric Progress Note ---
Date of Service March 04, 2019 Impression / Recommendations Impression 73-year-old male with schizophrenia who lives at the [facility] and was admitted involuntarily with delusions, hallucinations, irritability and erratic behavior on 02/24/19 after rapidly decompensating 1-2 weeks after stopping olanzapine. He was found in a dumpster, floridly delusional, and was combative with R staff. He refused resumption of olanzapine, but ultimately agreed to take aripiprazole. He continues to endorse auditory hallucinations and belief that he has a microchip in his brain. Also believing he has the "cure" for schizophrenia, which he believes is caused by a parasite. He is on a 303 as of 02/27/19. He remains floridly psychotic, with symptoms that include persistent and intrusive auditory hallucinations with persecutory content, persecutory delusional believes, and disorganized thinking. He had been refusing, consistently, psychiatric medications, but compliant with trial of aripiprazole since 303 hearing, since titrated to a dose of 25mg qAM and switched to liquid formulation (30mg tablet equivalent). If tolerated and effective, plan will be for conversation to GAG[facility] Aleman. May need to consider other alternatives, as improvement has been rather limited at this point. (1) Schizophrenia: 02/25 - Continue home medication regimen - as refusing offerings of his antipsychotic, will likely require olanzapine IM (or alternative agent) over objection, given clear evidence of paranoia and delusional thought process - previously stabilized on this medication - Pt agreeable to taking all other medications, with exception of antipsychotic as mentioned above - Admitted to a locked inpatient behavioral health unit, on q15 minute safety checks - Encourage medication initiation/adjustments as indicated - Encourage participation in group and recreational therapies - Gather collateral information from outpatient providers and halfway staff - Suggest family meeting to involve outpatient supports in safety planning - Reschedule appropriate aftercare appointments 02/26 -Patient indicates willingness to sign a release for the [facility] halfway, will get collateral from their staff. -File for 303 involuntary commitment to be held tomorrow. -Recommend medications over objection, with an IM Zyprexa backup for refusal of oral medication. Involve outpatient treatment team to discuss ways to improve stability and compliance; consider long-acting injectable antipsychotic. -Order fasting labs for monitoring on an atypical antipsychotic once patient is more cooperative. 02/27 -The patient was retrained at his involuntary commitment hearing (303) this morning. -He has continuously and consistently refused psychiatric medications to date. However, today, when I explained that that a option that might become necessary in his case is medication over objection, and an intramuscular form, the patient said that he understood and that he would try medications that I prescribe. His initial preference would be olanzapine, but because olanzapine is not available in a long acting depot form, we would first like to try aripiprazole. He indicates that he is taken aripiprazole in the past and has been able to tolerate it, although he does not believe that it has been particularly helpful. -A trial dose of aripiprazole 15 mg by mouth, as a one-time dose, has been ordered and he assessed for efficacy. 02/28 -Appears to be tolerating initiation of Abilify so far. Remains delusional, paranoid. May consider further titration tomorrow -Aricept discontinued at patient's request on 02/27/2019. The medication has not been demonstrated to be efficacious for cognitive impairment associated with long-standing schizophrenia however we should be vigilant for slowing of mentation following discontinuation. 03/01 Patient fixated and irrational regarding access to clothing item as above today. Hospital environment becoming incorporated and delusions. Consider possibility that the aripiprazole is contributing to activation. We will increase to 20 mg tomorrow and also start Risperdal 1 mg p.o. twice daily as as needed. 03/02 - Continue with aripiprazole at 20mg daily, consider need for further titration - if tolerating and effective, eventual plan will be for conversion to Abilify Maintena - Pt has not yet utilized risperidone 03/03 - Increase aripiprazole to 25mg (equivalent to 30mg pill) and change to liquid formulation to decrease risk of cheeking/nonadherence, as patient does not believe he needs medication and had been noncompliant prior to hospitalization. - Fasting glucose and lipid profile ordered for tomorrow for monitoring on an atypical antipsychotic. - Private room due to psychosis, agitation, and inappropriate disrobing/sexual behavior. - Meeting with [facility] and [facility] staff when patient able to tolerate. 03/04 - Continue aripiprazole 25mg liquid (30mg pill equivalent) and continue to observe for improvement in thought process/content - consider conversion to Maintena if effective, versus trial of another agent if improvement remains limited - Fasting labs reviewed - all values WNL - Continue medically necessary private room - Request meeting with [facility] staff, in order to obtain details about patient's proximity to baseline (2) Substance abuse: 02/25 - Pt has reported history of substance abuse, and recommendation has consistently been for avoidance of substances with significant abuse potential. - PDMP queried - most recent prescriptions below - lorazepam 0.5mg #60 tabs for 30 day supply - Dr. Alves - filled 02/12/2019 - alprazolam 0.5mg #90 tabs for 30 day supply - Dr. Lopez - filled 01/16/2019 - temazepam 30mg #30 caps for 30 day supply - Dr. Lopez - filled 01/16/2019 - Will continue lorazepam 0.5mg BID prn on admission, as only medication that is seemingly active - toxicology screen is negative for benzodiazepines, which questions if he has been taking the medication appropriately - Ideally will taper and discontinue the lorazepam, as recommendation remains that substances with abuse potential be avoided 02/26 -The patient's outpatient providers, during a meeting this morning, report t hat the patient tends to successfully convince physicians to prescribe benzodiazepines for him and that, in the past, he has abused him to the degree that he is practically obtunded. 02/27 -A repeat check of the PDMP reveals that the patient is consistently being prescribed lorazepam 0.5 mg twice daily (number 60/month) by a Dr. Brent Alves. He is also being prescribed alprazolam 0.[address] mg [address] Jeff Lopez, with the most recent previous prescription of alprazolam being on 01/16/[address] Lopez also prescribed temazepam 30 mg capsules #30 on 01/16/2019. According to his residential providers, no temazepam capsules were found among the patient's belongings. His most recent prescription for lorazepam 0.5 mg tablets was filled on 02/12/2019. 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 In the past, he reportedly has used clonazepam and temazepam. -I advised the patient that because of his history of misuse of benzodiazepines we would not be prescribing benzodiazepines during his hospital stay. An as needed order for lorazepam has not been used during hospital stay, and I discontinued the order today. 03/02 - Will need to coordinate care with his PCP and outpatient psychiatrist prior to discharge regarding the above. 03/04 - Charge nurse spoke with the above offices regarding concern for continued benzodiazepine prescriptions - Records will be faxed to their offices on discharge, as all benzodiazepines were discontinued during this hospitalization (3) Hypertension: 02/25 - Continue home dose of clonidine 0.1mg qHS 03/01 Watch mildly elevated blood pressures as patient has been refusing clonidine 03/03 - BP normal past two days, and low today Inventory Assets Strengths: -Intelligence. Support of community providers. Well educated. Needs: Resume symptom-stabilizing medication regimen, coordinate care with halfway Risk Factors Assessment Male: Yes : Yes Do You Have Access To A Gun?: No Health Problems: Yes Mental Health Diagnoses: Yes Substance Use Disorders: Yes Protective Factors Assessment Jehovah'S Witness Beliefs: No : No Responsible for Young Children: No Employed: No Stable Relationships: No Supportive Family: No Good Rapport with Provider: No Interval History Identifying Information SCOTT ROBERTO is a 73-year-old M who currently lives at a [facility] in [place]. Pt has a history of schizophrenia and is known to our unit from several previous admissions, most recently in 09/2016. Pt and was admitted on 02/24/19 16:40 on a 302 involuntary commitment for exacerbation of schizophrenia and heightened paranoia resulting in belief he needed to hide in a dumpster to seek refuge from impending bombings. Pt was found by [facility] staff and brought to the ED by police. Chief Complaint "I'm laying down. I took that liquid medication and it made me dizzy. That stuff is oily, thick and oily." Review of Systems Notes Constitutional: verbalized dizziness after receiving liquid aripiprazole Cardiovascular: denied Respiratory: denied Gastrointestinal: denied Neurological: denied Psychiatric: denies symptoms other than stated above Total of at least 10 systems reviewed, pertinent positives as above and in HPI. Sleep Information Total Hours of Sleep: 8.5 Sleep Comments: pt on q-15 minute checks Meal Information Percent Meal Consumed - Breakfast: 100 Percent Meal Consumed - Lunch: 80 Percent Meal Consumed - Dinner: 100 Subjective Subjective Patient was seen & assessed and interval progress reviewed with Treatment Team. Staff reports the patient continues to be disorganized and at times displays inappropriate behavior and wardrobe. Pt was seen today to assess progress since admission. 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 He states that the only cure is to ingest a large amount of folate, which lures the parasite from the "cysts" they reside in. Once you have ingested folate, you are able to kill the parasites with methylene blue. Pt is requesting an order of methylene blue and demanding to have himself tested for the parasites. He then states - "there, I just gave you the cure for schizophrenia - are you going to tell someone?" Pt was informed that this provider had never heard of these reports before, and was not sure of its accuracy. Pt responded by stating, "the literature has been out for over 100 years, you guys really don't keep up with the literature here." He then requests donuts each morning and fresh coffee. This provider stated she would pass on his requests but was unsure they could be granted - as this provider left the room, she heard the patient state, "I bet you don't." Physical Exam Psychiatric Orientation: alert, oriented to person and cooperative (limited to only the fact he agreed to have conversation with this provider) Apperance: appropriately dressed and appropriately groomed Eye Contact: good eye contact Motor Behavior: no abnormal motor movements (observed while laying in bed) Speech: normal rate/rhythm/volume of speech (mildly irritable tone) Affect: + irritable affect (mildly) Mood: no depressed mood and no anxious mood "I've been fine" Thought Process: + tangential thought process and + perseveration (on getting testing for parasite causing schizophrenia) Thought Content: + paranoid and + delusions Suicidal Thoughts: denies suicidal thoughts Homicidal Thoughts: denies homicidal thoughts Hallucinations: no visual hallucinations Does not verbalize concern for hallucinations today Cognition: attention grossly intact and language grossly intact; + remote memory not intact Insight: + severely impaired insight Judgement: + severely impaired judgement Vital Signs (Past 24 Hours) Last Vital Signs Temp 36.6 C 03/04/19 06:29 Pulse 67 03/04/19 06:31 Resp 18 03/04/19 06:29 BP 115/66 03/04/19 06:31 Pulse Ox 96 02/24/19 08:10 Results & Data Laboratory Results Laboratory Results - last 24 hr 03/04/19 07:35 Fasting Glucose 83 Triglycerides 141 Cholesterol 163 LDL Cholesterol, Calc 88 VLDL Cholesterol, Calc 28 HDL Cholesterol 47 Cholesterol/HDL Ratio 4 Current Inpatient Medications Current Inpatient Medications: Current Inpatient Medications Acetaminophen (Tylenol) 650 mg PO Q4H PRN PRN Reason: Headache or Minor Fever Stop: 03/26/19 16:39 Al Hydrox/Mg Hydrox/Simethicone (Maalox) 30 ml PO Q4H PRN PRN Reason: GI Upset Stop: 03/26/19 16:39 Aripiprazole (Abilify) 25 mg PO QAM [facility] Stop: 04/03/19 08:59 Last Admin: 03/04/19 08:10 Dose: 25 mg Documented by: Benztropine Mesylate (Cogentin) 0.5 mg PO BID [facility] Stop: 03/26/19 20:59 Last Admin: 03/04/19 08:14 Dose: Not Given Documented by: Bismuth Subsalicylate (Kaopectate) 15 ml PO PRN PRN PRN Reason: Loose Stool Stop: 03/26/19 16:39 Clonidine HCl (Catapres) 0.1 mg PO HS [facility] Stop: 03/26/19 20:59 Last Admin: 03/03/19 21:09 Dose: 0.1 mg Documented by: Cyanocobalamin (Vitamin B-12) 500 mcg PO DAILY [facility] Stop: 03/27/19 08:59 Last Admin: 03/04/19 08:11 Dose: 500 mcg Documented by: Hydroxyzine HCl (Vistaril) 25 mg PO Q4H PRN PRN Reason: Anxiety Stop: 03/26/19 16:39 Hydroxyzine HCl (Vistaril) 50 mg PO HSZ PRN PRN Reason: Insomnia Stop: 03/26/19 16:39 Magnesium Hydroxide (Milk Of Magnesia) 30 ml PO DAILY PRN PRN Reason: Heartburn Stop: 03/26/19 16:39 Magnesium Oxide (Mag-Ox) 400 mg PO DAILY [facility] Stop: 03/27/19 08:59 Last Admin: 03/04/19 08:11 Dose: 400 mg Documented by: Miscellaneous (Remove Nicoderm Patch) 1 ea N/A HS MAG Stop: 03/26/19 20:59 Last Admin: 03/03/19 21:12 Dose: Not Given Documented by: Multivitamins (Multivitamin Tab) 1 tab PO DAILY [facility] Stop: 03/27/19 08:59 Last Admin: 03/04/19 08:11 Dose: 1 tab Documented by: Nicotine (Nicoderm Cq) 14 mg TD QAM [facility] Stop: 03/27/19 08:59 Last Admin: 03/04/19 08:15 Dose: Not Given Documented by: Pyridoxine HCl (Vitamin B-6) 100 mg PO DAILY [facility] Stop: 03/27/19 08:59 Last Admin: 03/04/19 08:10 Dose: 100 mg Documented by: Risperidone (Risperdal M) 1 mg PO BID PRN PRN Reason: psychosis Stop: 03/31/19 10:36 Sodium Chloride (Ramos Nasal) 1 - 2 sprays NA PRN PRN PRN Reason: Nasal Dryness/Congestion Stop: 03/26/19 16:39 Mental Health & Subst Abuse Tx Therapist Name of Therapist: [facility] Name of Store Stocker: Shruti Lopez Phone Number for Store Stocker: Case Management Appointment Comment: [phone], [place] [address] Post Discharge Appointments Primary Care Physician Name Of Family Doctor: Dr. Lopez Contact Information Discharge Discharge Address: [address] [place] [address], [place] [address] CPT Code CPT Code 34412 (1) Schizophrenia Schizophrenia type: paranoid schizophrenia Qualified Code(s): F20.0 - Paranoid schizophrenia (2) Hypertension Hypertension type: essential hypertension Qualified Code(s): I10 - Essential (primary) hypertension
[2019-03-04] MEDS: cloNIDine HCL 0.1 MG TAB PO SCH (21:14)
[2019-03-05] MEDS: MULTIVITAMIN TAB PO SCH (08:31)
[2019-03-05] MEDS: CYANOCOBALAMIN 500 MCG TABLET (VITAMIN B-12) PO SCH (08:31)
[2019-03-05] MEDS: PYRIDOXINE HCL 50 MG TAB PO SCH (08:31)
[2019-03-05] MEDS: MAGNESIUM OXIDE 400 MG TAB PO SCH (08:31)
[2019-03-05] MEDS: ARIPIprazole 1 MG/ML ORAL SOLN 150 ML BTL PO SCH (08:33)
[2019-03-05] MEDS: BENZTROPINE MESYLATE 0.5 MG TAB PO SCH ×2 (08:33→21:36)
[2019-03-05] MEDS: NICOTINE 14 MG/24 HR PATCH TD SCH (08:33)
[2019-03-05] MEDS: ARIPiprazole 15 MG TAB PO SCH (10:14)
--- NOTE | 2019-03-05 10:41 | Psychiatric Progress Note ---
Date of Service March 05, 2019 Impression / Recommendations Impression 73-year-old male with schizophrenia who lives at the [facility] and was admitted involuntarily with delusions, hallucinations, irritability and erratic behavior on 02/24/19 after rapidly decompensating 1-2 weeks after he became noncompliant with his prescribed olanzapine. He was found in a dumpster, floridly delusional, and was combative with [facility] staff. He refused resumption of olanzapine, but ultimately agreed to take aripiprazole. He continues to endorse auditory hallucinations, belief that he has a microchip in his brain, has the "cure" for schizophrenia, which he believes is caused by a parasite. He is on a 303 as of 02/27/19. He remains floridly psychotic, with symptoms that include persistent and intrusive auditory hallucinations with persecutory content, persecutory delusional believes, and disorganized thinking. He had been refusing, consistently, psychiatric medications, but compliant with trial of aripiprazole since 303 hearing. If tolerated and effective, plan will be for conversation to [facility]. May need to consider other alternatives, as improvement has been rather limited at this point. He will need a meeting with his outpatient supports given his noncompliance with [facility] rules and treatment nonadherence prior to hospitalization, and would likely benefit from an involuntary outpatient commitment. (1) Schizophrenia: 02/25 - Continue home medication regimen - as refusing offerings of his antipsychotic, will likely require olanzapine IM (or alternative agent) over objection, given clear evidence of paranoia and delusional thought process - previously stabilized on this medication - Pt agreeable to taking all other medications, with exception of antipsychotic as mentioned above - Admitted to a locked inpatient behavioral health unit, on q15 minute safety checks - Encourage medication initiation/adjustments as indicated - Encourage participation in group and recreational therapies - Gather collateral information from outpatient providers and senior living staff - Suggest family meeting to involve outpatient supports in safety planning - Reschedule appropriate aftercare appointments 02/26 -Patient indicates willingness to sign a release for the [facility] living, will get collateral from their staff. -File for 303 involuntary commitment to be held tomorrow. -Recommend medications over objection, with an IM Zyprexa backup for refusal of oral medication. Involve outpatient treatment team to discuss ways to improve stability and compliance; consider long-acting injectable antipsychotic. -Order fasting labs for monitoring on an atypical antipsychotic once patient is more cooperative. 02/27 -The patient was retrained at his involuntary commitment hearing (303) this morning. -He has continuously and consistently refused psychiatric medications to date. However, today, when I explained that that a option that might become necessary in his case is medication over objection, and an intramuscular form, the patient said that he understood and that he would try medications that I prescribe. His initial preference would be olanzapine, but because olanzapine is not available in a long acting depot form, we would first like to try aripiprazole. He indicates that he is taken aripiprazole in the past and has been able to tolerate it, although he does not believe that it has been particularly helpful. -A trial dose of aripiprazole 15 mg by mouth, as a one-time dose, has been ordered and he assessed for efficacy. 02/28 -Appears to be tolerating initiation of Abilify so far. Remains delusional, paranoid. May consider further titration tomorrow -Aricept discontinued at patient's request on 02/27/2019. The medication has not been demonstrated to be efficacious for cognitive impairment associated with long-standing schizophrenia however we should be vigilant for slowing of mentation following discontinuation. 03/01 Patient fixated and irrational regarding access to clothing item as above today. Hospital environment becoming incorporated and delusions. Consider possibility that the aripiprazole is contributing to activation. We will increase to 20 mg tomorrow and also start Risperdal 1 mg p.o. twice daily as as needed. 03/02 - Continue with aripiprazole at 20mg daily, consider need for further titration - if tolerating and effective, eventual plan will be for conversion to Abilify Maintena - Pt has not yet utilized risperidone 03/03 - Increase aripiprazole to 25mg (equivalent to 30mg pill) and change to liquid formulation to decrease risk of cheeking/nonadherence, as patient does not believe he needs medication and had been noncompliant prior to hospitalization. - Fasting glucose and lipid profile ordered for tomorrow for monitoring on an atypical antipsychotic. - Private room due to psychosis, agitation, and inappropriate disrobing/sexual behavior. - Meeting with [facility] and [facility] staff when patient able to tolerate. 03/04 - Continue aripiprazole 25mg liquid (30mg pill equivalent) and continue to observe for improvement in thought process/content - consider conversion to Maintena if effective, versus trial of another agent if improvement remains limited - Fasting labs reviewed - all values WNL - Continue medically necessary private room - Request meeting with [facility] staff, in order to obtain details about patient's proximity to baseline 03/05 -Patient refusing liquid aripiprazole, but agrees to take the pill: Ordered 30 mg daily. -Schedule meeting with his rn case manager, [facility] and psych rehab staff. Consider involuntary outpatient commitment at the time of discharge. (2) Substance abuse: 02/25 - Pt has reported history of substance abuse, and recommendation has consistently been for avoidance of substances with significant abuse potential. - PDMP queried - most recent prescriptions below - lorazepam 0.5mg #60 tabs for 30 day supply - Dr. Alves - filled 02/12/2019 - alprazolam 0.5mg #90 tabs for 30 day supply - Dr. Lopez - filled 01/16/2019 - temazepam 30mg #30 caps for 30 day supply - Dr. Lopez - filled 01/16/2019 - Will continue lorazepam 0.5mg BID prn on admission, as only medication that is seemingly active - toxicology screen is negative for benzodiazepines, which questions if he has been taking the medication appropriately - Ideally will taper and discontinue the lorazepam, as recommendation remains that substances with abuse potential be avoided 02/26 -The patient's outpatient providers, during a meeting this morning, report that the patient tends to successfully convince physicians to prescribe benzodiazepines for him and that, in the past, he has abused him to the degree that he is practically obtunded. 02/27 -A repeat check of the PDMP reveals that the patient is consistently being prescribed lorazepam 0.5 mg twice daily (number 60/month) by a Dr. Brent Alves. He is also being prescribed alprazolam 0.[address] mg [address] Jeff Lopez, with the most recent previous prescription of alprazolam being on 01/16/[address] Lopez also prescribed temazepam 30 mg capsules #30 on 01/16/2019. According to his residential providers, no temazepam capsules were found among the patient's belongings. His most recent prescription for lorazepam 0.5 mg tablets was filled on 02/12/2019. 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 In the past, he reportedly has used clonazepam and temazepam. -I advised the patient that because of his history of misuse of benzodiazepines we would not be prescribing benzodiazepines during his hospital stay. An as needed order for lorazepam has not been used during hospital stay, and I discontinued the order today. 03/02 - Will need to coordinate care with his PCP and outpatient psychiatrist prior to discharge regarding the above. 03/04 - Charge nurse spoke with the above offices regarding concern for continued benzodiazepine prescriptions - Records will be faxed to their offices on discharge, as all benzodiazepines were discontinued during this hospitalization (3) Hypertension: 02/25 - Continue home dose of clonidine 0.1mg qHS 03/01 Watch mildly elevated blood pressures as patient has been refusing clonidine 03/03 - BP normal past two days, and low today Inventory Assets Strengths: -Intelligence. Support of community providers. Well educated. Needs: Resume symptom-stabilizing medication regimen, coordinate care with senior living Risk Factors Assessment Male: Yes : Yes Do You Have Access To A Gun?: No Health Problems: Yes Mental Health Diagnoses: Yes Substance Use Disorders: Yes Protective Factors Assessment Catholic Beliefs: No : No Responsible for Young Children: No Employed: No Stable Relationships: No Supportive Family: No Good Rapport with Provider: No Interval History Identifying Information SCOTT ROBERTO is a 73-year-old M who currently lives at a [facility] in [place]. Pt has a history of schizophrenia and is known to our unit from several previous admissions, most recently in 09/2016. Pt and was admitted on 02/24/19 16:40 on a 302 involuntary commitment for exacerbation of schizophrenia and heightened paranoia resulting in belief he needed to hide in a dumpster to seek refuge from impending bombings. Pt was found by [facility] staff and brought to the ED by police. Chief Complaint "I came here voluntarily, worried trying to do?" Review of Systems Sleep Information Total Hours of Sleep: 6.25 Sleep Comments: came to kitchen for cereal. Meal Information Percent Meal Consumed - Breakfast: 100 Percent Meal Consumed - Lunch: 100 Percent Meal Consumed - Dinner: 100 Subjective Subjective Patient was seen & assessed and interval progress reviewed with Nursing and social work staff report he is refusing liquid aripiprazole, stating it tastes bad. He is attending groups and participating superficially, isolates in his room and does not interact with others. His PCPs and psychiatrists office staff were contacted and informed of medication changes and recommendations not to prescribe benzodiazepines. His BCM, [facility], and psych rehab were contacted to arrange a discharge planning meeting. They informed staff that the patient had been barred from attending psych rehab due to hostile and aggressive behavior, but could return once stable. The patient had negative things to say about local outpatient facilities. On my assessment, he states that he will not take liquid medication, and wants to know why it was ordered. Explained rationale, including that he has repeatedly stated he does not need antipsychotic medication, and recent noncompliance with medication. He repeatedly and angrily states that no medications will help his symptoms of schizophrenia, but then says that he will take the pill form of aripiprazole. He insists that he is in the hospital voluntarily, and repeatedly explains that he was admitted on a 302 involuntary commitment, and is on a 303 commitment as of his hearing last week, which he disputes. He demands that I contact his rebar worker" have him meet with me at once." Repeatedly attempted to redirect the conversation to his symptoms and treatment, which he is resistant to. At one point he does report that he has "voices and a loud noise in my head," but refuses to give any further information about the voices, stating "I'd rather not say." He says that the o nly thing that will help his symptoms are "cigarettes, coffee, marijuana, and psilocybin." He angrily demands to be given these things in the hospital, stating "they work, so why can't I have them?" Physical Exam Psychiatric Orientation: alert; + uncooperative Apperance: appropriately groomed and appeared stated age; + inappropriately dressed (Wearing stretch pants, sport sandals, and a longsleeved shirt) Eye Contact: good eye contact Motor Behavior: steady gait and station Angry tone, frequently interrupting Affect: + irritable affect and + angry affect Thought Process: + tangential thought process and + perseveration Thought Content: + delusions Does not answer with related information Homicidal Thoughts: denies homicidal thoughts Hallucinations: + auditory hallucinations Voices and a loud noise in his head, will not clarify further Cognition: + attention not intact Insight: + severely impaired insight Judgement: + severely impaired judgement Vital Signs (Past 24 Hours) Last Vital Signs Temp 36.7 C 03/05/19 06:44 Pulse 81 03/05/19 06:45 Resp 18 03/05/19 06:44 BP 96/64 L 03/05/19 06:45 Pulse Ox 96 02/24/19 08:10 Results & Data Current Inpatient Medications Current Inpatient Medications: Current Inpatient Medications Acetaminophen (Tylenol) 650 mg PO Q4H PRN PRN Reason: Headache or Minor Fever Stop: 03/26/19 16:39 Al Hydrox/Mg Hydrox/Simethicone (Maalox) 30 ml PO Q4H PRN PRN Reason: GI Upset Stop: 03/26/19 16:39 Aripiprazole (Abilify) 30 mg PO QAM [facility] Stop: 04/04/19 08:59 Last Admin: 03/05/19 10:14 Dose: 30 mg Documented by: Benztropine Mesylate (Cogentin) 0.5 mg PO BID [facility] Stop: 03/26/19 20:59 Last Admin: 03/05/19 08:33 Dose: Not Given Documented by: Bismuth Subsalicylate (Kaopectate) 15 ml PO PRN PRN PRN Reason: Loose Stool Stop: 03/26/19 16:39 Clonidine HCl (Catapres) 0.1 mg PO HS [facility] Stop: 03/26/19 20:59 Last Admin: 03/04/19 21:14 Dose: 0.1 mg Documented by: Cyanocobalamin (Vitamin B-12) 500 mcg PO DAILY [facility] Stop: 03/27/19 08:59 Last Admin: 03/05/19 08:31 Dose: 500 mcg Documented by: Hydroxyzine HCl (Vistaril) 25 mg PO Q4H PRN PRN Reason: Anxiety Stop: 03/26/19 16:39 Hydroxyzine HCl (Vistaril) 50 mg PO HSZ PRN PRN Reason: Insomnia Stop: 03/26/19 16:39 Magnesium Hydroxide (Milk Of Magnesia) 30 ml PO DAILY PRN PRN Reason: Heartburn Stop: 03/26/19 16:39 Magnesium Oxide (Mag-Ox) 400 mg PO DAILY [facility] Stop: 03/27/19 08:59 Last Admin: 03/05/19 08:31 Dose: 400 mg Documented by: Miscellaneous (Remove Nicoderm Patch) 1 ea N/A HS MAG Stop: 03/26/19 20:59 Last Admin: 03/04/19 21:15 Dose: Not Given Documented by: Multivitamins (Multivitamin Tab) 1 tab PO DAILY [facility] Stop: 03/27/19 08:59 Last Admin: 03/05/19 08:31 Dose: 1 tab Documented by: Nicotine (Nicoderm Cq) 14 mg TD QAM MAG Stop: 03/27/19 08:59 Last Admin: 03/05/19 08:33 Dose: Not Given Documented by: Pyridoxine HCl (Vitamin B-6) 100 mg PO DAILY [facility] Stop: 03/27/19 08:59 Last Admin: 03/05/19 08:31 Dose: 100 mg Documented by: Risperidone (Risperdal M) 1 mg PO BID PRN PRN Reason: psychosis Stop: 03/31/19 10:36 Sodium Chloride (Arthur Nasal) 1 - 2 sprays NA PRN PRN PRN Reason: Nasal Dryness/Congestion Stop: 03/26/19 16:39 Mental Health & Subst Abuse Tx Therapist Name of Therapist: Denies Photography Manager Name of Photography Manager: Shruti Lopez Phone Number for Photography Manager: Case Management Appointment Comment: [phone], [place] [address] Post Discharge Appointments Primary Care Physician Name Of Family Doctor: Dr. Lopez Contact Information Discharge Discharge Address: [address] [place] [address], [place] [address] CPT Code CPT Code 89575 (1) Schizophrenia Schizophrenia type: paranoid schizophrenia Qualified Code(s): F20.0 - Paranoid schizophrenia (2) Hypertension Hypertension type: essential hypertension Qualified Code(s): I10 - Essential (primary) hypertension
[2019-03-05] MEDS: cloNIDine HCL 0.1 MG TAB PO SCH (21:36)
[2019-03-06] MEDS: MAGNESIUM OXIDE 400 MG TAB PO SCH (08:40)
[2019-03-06] MEDS: ARIPiprazole 15 MG TAB PO SCH (08:40)
[2019-03-06] MEDS: NICOTINE 14 MG/24 HR PATCH TD SCH (08:41)
[2019-03-06] MEDS: CYANOCOBALAMIN 500 MCG TABLET (VITAMIN B-12) PO SCH (08:41)
[2019-03-06] MEDS: BENZTROPINE MESYLATE 0.5 MG TAB PO SCH ×2 (08:41→20:57)
[2019-03-06] MEDS: MULTIVITAMIN TAB PO SCH (08:41)
[2019-03-06] MEDS: PYRIDOXINE HCL 50 MG TAB PO SCH (08:41)
[2019-03-06] MEDS ORDERED: ARIPIPRAZOLE 400 MG KIT IM ONE (19:27)
--- NOTE | 2019-03-06 19:53 | Psychiatric Progress Note ---
Date of Service March 06, 2019 Impression / Recommendations Impression 73-year-old male with schizophrenia who lives at the [facility] and was admitted involuntarily with delusions, hallucinations, irritability and erratic behavior on 02/24/19 after rapidly decompensating 1-2 weeks after he became noncompliant with his prescribed olanzapine. He was found in a dumpster, floridly delusional, and was combative with [facility] staff. He refused resumption of olanzapine, but ultimately agreed to take aripiprazole. Today, after a lengthy discussion about his psychiatric symptoms he does not reference toxoplasmosis, nor does he mention a microchip in his brain. He does, however, say that he at least suspects that some sort of transmitting device may have been maliciously inserted into two of his bicuspid teeth, and it is these teeth that are transmitting sounds and "voices" that others believe are auditory hallucinations. Although the patient, himself, tells us that he does not feel as if aripiprazole has been helpful to him, he also agrees that he is tolerating it well and has not noticed any side effects. He was also able to accept, after some explanation, that the behavioral health treatment team feel that his condition has improved and response to his taking aripiprazole. He tells me that he is "okay" with the idea of continuing aripiprazole, even though he is not convinced that it is of any particular benefit, but strongly dislikes the taste of liquid aripiprazole (which has been given to him because of a concern that he might be "cheeking" medications). I believe that part of the patient's personality is to play doubles advocate and take an adversarial posture for "sport" and, today, when I explained the I am recommending Madie Aleman in part because of his history of periodic nonadherence with medications in the community, he asked me if I could "prove it." When I smiled, and told him that I could prove it by simply asking him to tell me the truth regarding his outpatient medication adherence, he smiled back and said that "of course" he sometimes stops his medications, either because he does not like them or because he does not feel that there effective. Nevertheless, and within this context, he told me that he would agree to Madie Aleman. At the time of this writing, Abilify Maintena 300 mg IM has been ordered and, as above, the patient has verbalized his consent to take it. However, it has not yet arrived from pharmacy. (1) Schizophrenia: 02/25 - Continue home medication regimen - as refusing offerings of his antipsychotic, will likely require olanzapine IM (or alternative agent) over objection, given clear evidence of paranoia and delusional thought process - previously stabilized on this medication - Pt agreeable to taking all other medications, with exception of anti psychotic as mentioned above - Admitted to a locked inpatient behavioral health unit, on q15 minute safety checks - Encourage medication initiation/adjustments as indicated - Encourage participation in group and recreational therapies - Gather collateral information from outpatient providers and [facility]pc staff - Suggest family meeting to involve outpatient supports in safety planning - Reschedule appropriate aftercare appointments 02/26 -Patient indicates willingness to sign a release for the [facility], will get collateral from their staff. -File for 303 involuntary commitment to be held tomorrow. -Recommend medications over objection, with an IM Zyprexa backup for refusal of oral medication. Involve outpatient treatment team to discuss ways to improve stability and compliance; consider long-acting injectable antipsychotic. -Order fasting labs for monitoring on an atypical antipsychotic once patient is more cooperative. 02/27 -The patient was retrained at his involuntary commitment hearing (303) this morning. -He has continuously and consistently refused psychiatric medications to date. However, today, when I explained that that a option that might become necessary in his case is medication over objection, and an intramuscular form, the patient said that he understood and that he would try medications that I prescribe. His initial preference would be olanzapine, but because olanzapine is not available in a long acting depot form, we would first like to try aripiprazole. He indicates that he is taken aripiprazole in the past and has been able to tolerate it, although he does not believe that it has been particularly helpful. -A trial dose of aripiprazole 15 mg by mouth, as a one-time dose, has been ordered and he assessed for efficacy. 02/28 -Appears to be tolerating initiation of Abilify so far. Remains delusional, paranoid. May consider further titration tomorrow -Aricept discontinued at patient's request on 02/27/2019. The medication has not been demonstrated to be efficacious for cognitive impairment associated with long-standing schizophrenia however we should be vigilant for slowing of mentation following discontinuation. 03/01 Patient fixated and irrational regarding access to clothing item as above today. Hospital environment becoming incorporated and delusions. Consider possibility that the aripiprazole is contributing to activation. We will increase to 20 mg tomorrow and also start Risperdal 1 mg p.o. twice daily as as needed. 03/02 - Continue with aripiprazole at 20mg daily, consider need for further titration - if tolerating and effective, eventual plan will be for conversion to Abilify Maintena - Pt has not yet utilized risperidone 03/03 - Increase aripiprazole to 25mg (equivalent to 30mg pill) and change to liquid formulation to decrease risk of cheeking/nonadherence, as patient does not believe he needs medication and had been noncompliant prior to hospitalization. - Fasting glucose and lipid profile ordered for tomorrow for monitoring on an atypical antipsychotic. - Private room due to psychosis, agitation, and inappropriate disrobing/sexual behavior. - Meeting with [facility] and [facility] staff when patient able to tolerate. 03/04 - Continue aripiprazole 25mg liquid (30mg pill equivalent) and continue to observe for improvement in thought process/content - consider conversion to Maintena if effective, versus trial of another agent if improvement remains limited - Fasting labs reviewed - all values WNL - Continue medically necessary private room - Request meeting with [facility] staff, in order to obtain details about patient's proximity to baseline 03/05 -Patient refusing liquid aripiprazole, but agrees to take the pill: Ordered 30 mg daily. -Schedule meeting with his case resolution specialist, [facility] and psych rehab staff. Consider involuntary outpatient commitment at the time of discharge. 03/06 -The patient has improved in that he is more reality based at this point. He continues to harbor fixed, systematized delusions, but is generally able to focus on reality based topics. -Although the patient tells me that he does not feel that aripiprazole has been effective, he is able to accept my opinion in the opinion of the staff that he has improved in response to aripiprazole. -The patient's main objection to aripiprazole oral solution is that he does not like the way it tastes, and within this context, he tells us that he is willing to accept Abilify Maintenaand requests that it be injected into his buttock. Abilify Maintena 300 mg IM ordered, and oral Abilify discontinued. We will resume oral Abilify if the patient subsequently changes his mind and refuses the injection. (2) Substance abuse: 02/25 - Pt has reported history of substance abuse, and recommendation has consistently been for avoidance of substances with significant abuse potential. - PDMP queried - most recent prescriptions below - lorazepam 0.5mg #60 tabs for 30 day supply - Dr. Alves - filled 02/12/2019 - alprazolam 0.5mg #90 tabs for 30 day supply - Dr. Lopez - filled 01/16/2019 - temazepam 30mg #30 caps for 30 day supply - Dr. Lopez - filled 01/16/2019 - Will continue lorazepam 0.5mg BID prn on admission, as only medication that is seemingly active - toxicology screen is negative for benzodiazepines, which questions if he has been taking the medication appropriately - Ideally will taper and discontinue the lorazepam, as recommendation remains that substances with abuse potential be avoided 02/26 -The patient's outpatient providers, during a meeting this morning, report that the patient tends to successfully convince physicians to prescribe benzodiazepines for him and that, in the past, he has abused him to the degree that he is practically obtunded. 02/27 -A repeat check of the PDMP reveals that the patient is consistently being prescribed lorazepam 0.5 mg twice daily (number 60/month) by a Dr. Brent Alves. He is also being prescribed alprazolam 0.[address] mg [address] Jeff Lopez, with the most recent previous prescription of alprazolam being on 01/16/[address] Lopez also prescribed temazepam 30 mg capsules #30 on 01/16/2019. According to his residential providers, no temazepam capsules were found among the patient's belongings. His most recent prescription for lorazepam 0.5 mg tablets was filled on 02/12/2019. 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 In the past, he reportedly has used clonazepam and temazepam. -I advised the patient that because of his history of misuse of benzodiazepines we would not be prescribing benzodiazepines during his hospital stay. An as needed order for lorazepam has not been used during hospital stay, and I discontinued the order today. 03/02 - Will need to coordinate care with his PCP and outpatient psychiatrist prior to discharge regarding the above. 03/04 - Charge nurse spoke with the above offices regarding concern for continued benzodiazepine prescriptions - Records will be faxed to their offices on discharge, as all benzodiazepines were discontinued during this hospitalization 03/06 -The patient did not request benzodiazepines and did not complain of anxiety today. I suggested to him that perhaps Abilify is also helping with anxiety in his case, and he responded by saying "perhaps." (3) Hypertension: 02/25 - Continue home dose of clonidine 0.1mg qHS 03/01 Watch mildly elevated blood pressures as patient has been refusing clonidine 03/03 - BP normal past two days, and low today Inventory Assets Strengths: -Intelligence. Support of community providers. Well educated. Needs: Resume symptom-stabilizing medication regimen, coordinate care with [facility] Risk Factors Assessment Male: Yes : Yes Do You Have Access To A Gun?: No Health Problems: Yes Mental Health Diagnoses: Yes Substance Use Disorders: Yes Protective Factors Assessment Buddhism Beliefs: No : No Responsible for Young Children: No Employed: No Stable Relationships: No Supportive Family: No Good Rapport with Provider: No Interval History Identifying Information SCOTT ROBERTO is a 73-year-old M who currently lives at a [facility] in [place]. Pt has a history of schizophrenia and is known to our unit from several previous admissions, most recently in 09/2016. Pt and was admitted on 02/24/19 16:40 on a 302 involuntary commitment for exacerbation of schizophrenia and heightened paranoia resulting in belief he needed to hide in a dumpster to seek refuge from impending bombings. Pt was found by [facility] staff and brought to the ED by police. Chief Complaint "I am doing okay. I have got these 2 teeth that go when they are x-rayed." Review of Systems Sleep Information Total Hours of Sleep: 7.5 Sleep Comments: pt on q-15 minute checsk Meal Information Percent Meal Consumed - Breakfast: 100 Percent Meal Consumed - Lunch: 100 Percent Meal Consumed - Dinner: 75 Subjective Subjective Patient was seen & assessed and interval progress reviewed with Treatment Team. I met individually with the patient in order to assess his current mental status, evaluate his response to treatment, make any necessary changes in the patient's treatment regimen and coordination with the patient, and address issues and concerns that may arise. The patient begins by telling me that he is tolerating aripiprazole by mouth well, but dislikes the taste of the liquid medicine and notes that he does not feel that aripiprazole helps. I let him know that the rest of the staff and I have noticed significant improvement and that his thinking seems to be more organized, he is more focused on reality, and he has been generally pleasant. The patient's response was to say, "well, that may fit their narrative because it is what they want to believe." However, he was eventually able to tell me that he accepted that we genuinely do feel that he has responded favorably to aripiprazole. I advised him that our recommendati on at this point is that he convert to Abilify Maintena, primarily because of his history of periodic medication nonadherence in the community, and the request of his community providers that he, if possible, consents to a Depo form of antipsychotic medications. Initially, the patient replied to that by saying, "can they prove it?" And when I replied, "no, they can prove it. But you can. Simply tell me the truth. Do you stop your medication sometimes?" The patient smiled broadly and said "of course." After further discussion, the patient said that he would consent to Abilify Maintena, and requests that the injection be given in his buttocks. He confesses the part of his motivation is that he simply does not like the taste of liquid immediate release Abilify. The patient also says that he is hoping to return to his residential program at [facility] in the near future, and indicates that he feels "better" and ready to go. At the same time, the patient acknowledges that he is continuing to experience auditory hallucinations that he believes are being transmitted to him through implants that may have been placed in his teeth. He cites as evidenced the fact that he has been told that 2 of his bicuspid teeth "glow white" on x-ray, while the other teeth do not. He equates this with the story that he tells me he read about 1 of Ck worthy Fernando's wives who apparently (according to the patient was (was fitted with some sort of transmitting device in her teeth. Physical Exam Psychiatric Orientation: oriented x 3 Apperance: appropriately dressed, appropriately groomed and appeared stated age Eye Contact: good eye contact Motor Behavior: no abnormal motor movements Speech: normal rate/rhythm/volume of speech Affect: euthymic affect "I'd say I am in a good mood." Thought Process: goal directed thought process The patient occasionally becomes tangential without external structure, but generally has goal-directed Thought Content: + delusions The patient reports that he at least suspects that persons unknown have implanted some sort of transmitting device into his lower bicuspid teeth, and it is these teeth that cause him to periodically experience what others believe are auditory hallucinations. Suicidal Thoughts: denies suicidal thoughts Homicidal Thoughts: denies homicidal thoughts Hallucinations: + auditory hallucinations See above. Cognition: recent memory grossly intact, remote memory grossly intact, attention grossly intact and language grossly intact Estimated Intelligence: + above average estimated intelligence Insight: + poor insight Judgement: + limited judgement Vital Signs (Past 24 Hours) Last Vital Signs Temp 36.3 C L 03/06/19 06:38 Pulse 61 03/06/19 06:38 Resp 18 03/06/19 06:38 BP 107/64 03/06/19 06:38 Pulse Ox 96 02/24/19 08:10 Results & Data Current Inpatient Medications Current Inpatient Medications: Current Inpatient Medications Acetaminophen (Tylenol) 650 mg PO Q4H PRN PRN Reason: Headache or Minor Fever Stop: 03/26/19 16:39 Al Hydrox/Mg Hydrox/Simethicone (Maalox) 30 ml PO Q4H PRN PRN Reason: GI Upset Stop: 03/26/19 16:39 Aripiprazole (Abilify Maintena Kit) 300 mg IM ONE ONE Stop: 03/06/19 19:28 Benztropine Mesylate (Cogentin) 0.5 mg PO BID MAG Stop: 03/26/19 20:59 Last Admin: 03/06/19 08:41 Dose: Not Given Documented by: Bismuth Subsalicylate (Kaopectate) 15 ml PO PRN PRN PRN Reason: Loose Stool Stop: 03/26/19 16:39 Clonidine HCl (Catapres) 0.1 mg PO HS MAG Stop: 03/26/19 20:59 Last Admin: 03/05/19 21:36 Dose: 0.1 mg Documented by: Cyanocobalamin (Vitamin B-12) 500 mcg PO DAILY MAG Stop: 03/27/19 08:59 Last Admin: 03/06/19 08:41 Dose: 500 mcg Documented by: Hydroxyzine HCl (Vistaril) 25 mg PO Q4H PRN PRN Reason: Anxiety Stop: 03/26/19 16:39 Hydroxyzine HCl (Vistaril) 50 mg PO HSZ PRN PRN Reason: Insomnia Stop: 03/26/19 16:39 Magnesium Hydroxide (Milk Of Magnesia) 30 ml PO DAILY PRN PRN Reason: Heartburn Stop: 03/26/19 16:39 Magnesium Oxide (Mag-Ox) 400 mg PO DAILY MAG Stop: 03/27/19 08:59 Last Admin: 03/06/19 08:40 Dose: 400 mg Documented by: Miscellaneous (Remove Nicoderm Patch) 1 ea N/A HS [facility] Stop: 03/26/19 20:59 Last Admin: 03/05/19 21:35 Dose: Not Given Documented by: Multivitamins (Multivitamin Tab) 1 tab PO DAILY MAG Stop: 03/27/19 08:59 Last Admin: 03/06/19 08:41 Dose: 1 tab Documented by: Nicotine (Nicoderm Cq) 14 mg TD QAM [facility] Stop: 03/27/19 08:59 Last Admin: 03/06/19 08:41 Dose: Not Given Documented by: Pyridoxine HCl (Vitamin B-6) 100 mg PO DAILY [facility] Stop: 03/27/19 08:59 Last Admin: 03/06/19 08:41 Dose: 100 mg Documented by: Risperidone (Risperdal M) 1 mg PO BID PRN PRN Reason: psychosis Stop: 03/31/19 10:36 Sodium Chloride ([place] Nasal) 1 - 2 sprays NA PRN PRN PRN Reason: Nasal Dryness/Congestion Stop: 03/26/19 16:39 Mental Health & Subst Abuse Tx Therapist Name of Therapist: Sammy Field Instructor Name of Field Instructor: Shruti Lopez Phone Number for Field Instructor: Case Management Appointment Comment: [phone], [place] [address] Post Discharge Appointments Primary Care Physician Name Of Family Doctor: Dr. Lopez Contact Information Discharge Discharge Address: [address] [place] [address] CPT Code CPT Code 03119 (1) Schizophrenia Schizophrenia type: paranoid schizophrenia Qualified Code(s): F20.0 - Paranoid schizophrenia (2) Hypertension Hypertension type: essential hypertension Qualified Code(s): I10 - Essential (primary) hypertension
[2019-03-06] MEDS: cloNIDine HCL 0.1 MG TAB PO SCH (20:57)
[2019-03-07] MEDS: MULTIVITAMIN TAB PO SCH (08:36)
[2019-03-07] MEDS: MAGNESIUM OXIDE 400 MG TAB PO SCH (08:36)
[2019-03-07] MEDS: NICOTINE 14 MG/24 HR PATCH TD SCH (08:36)
[2019-03-07] MEDS: CYANOCOBALAMIN 500 MCG TABLET (VITAMIN B-12) PO SCH (08:37)
[2019-03-07] MEDS: PYRIDOXINE HCL 50 MG TAB PO SCH (08:37)
[2019-03-07] MEDS: ARIPiprazole 15 MG TAB PO SCH (08:37)
[2019-03-07] MEDS: BENZTROPINE MESYLATE 0.5 MG TAB PO SCH ×2 (08:40→21:27)
--- NOTE | 2019-03-07 13:22 | Psychiatric Progress Note ---
Date of Service March 07, 2019 Impression / Recommendations Impression 73-year-old male with schizophrenia who lives at the [facility] and was admitted involuntarily with delusions, hallucinations, irritability and erratic behavior on 02/24/19 after rapidly decompensating 1-2 weeks after he became noncompliant with his prescribed olanzapine. He was found in a dumpster, floridly delusional, and was combative with [facility] staff. He refused resumption of olanzapine, but ultimately agreed to take aripiprazole. Today, after a lengthy discussion about his psychiatric symptoms he does not reference toxoplasmosis, nor does he mention a microchip in his brain. He does, however, say that he at least suspects that some sort of transmitting device may have been maliciously inserted into two of his bicuspid teeth, and it is these teeth that are transmitting sounds and "voices" that others believe are auditory hallucinations. Although the patient, himself, tells us that he does not feel as if aripiprazole has been helpful to him, he also agrees that he is tolerating it well and has not noticed any side effects. He was also able to accept, after some explanation, that the behavioral health treatment team feel that his condition has improved and response to his taking aripiprazole. He tells me that he is "okay" with the idea of continuing aripiprazole, even though he is not convinced that it is of any particular benefit, but strongly dislikes the taste of liquid aripiprazole (which has been given to him because of a concern that he might be "cheeking" medications). I believe that part of the patient's personality is to play doubles advocate and take an adversarial posture for "sport" and, today, when I explained the I am recommending Abilify Maintena in part because of his history of periodic nonadherence with medications in the community, he asked me if I could "prove it." When I smiled, and told him that I could prove it by simply asking him to tell me the truth regarding his outpatient medication adherence, he smiled back and said that "of course" he sometimes stops his medications, either because he does not like them or because he does not feel that there effective. Nevertheless, and within this context, he told me that he would agree to Abilify Maintena. Abilify Maintena 300 mg IM has been ordered and, pt ana moran indicated consent to take but then refused it and indicating not seeking taking abilify in general. (1) Schizophrenia: 02/25 - Continue home medication regimen - as refusing offerings of his antipsychotic, will likely require olanzapine IM (or alternative agent) over objection, given clear evidence of paranoia and delusional thought process - previously stabilized on this medication - Pt agreeable to taking all other medications, with exception of antipsychotic as mentioned above - Admitted to a locked inpatient behavioral health unit, on q15 minute safety checks - Encourage medication initiation/adjustments as indicated - Encourage participation in group and recreational therapies - Gather collateral information from outpatient providers and [facility] staff - Suggest family meeting to involve outpatient supports in safety planning - Reschedule appropriate aftercare appointments 02/26 -Patient indicates willingness to sign a release for the [facility], will get collateral from their staff. -File for 303 involuntary commitment to be held tomorrow. -Recommend medications over objection, with an IM Zyprexa backup for refusal of oral medication. Involve outpatient treatment team to discuss ways to improve stability and compliance; consider long-acting injectable antipsychotic. -Order fasting labs for monitoring on an atypical antipsychotic once patient is more cooperative. 02/27 -The patient was retrained at his involuntary commitment hearing (303) this morning. -He has continuously and consistently refused psychiatric medications to date. However, today, when I explained that that a option that might become necessary in his case is medication over objection, and an intramuscular form, the patient said that he understood and that he would try medications that I prescribe. His initial preference would be olanzapine, but because olanzapine is not available in a long acting depot form, we would first like to try aripiprazole. He indicates that he is taken aripiprazole in the past and has been able to tolerate it, although he does not believe that it has been particularly helpful. -A trial dose of aripiprazole 15 mg by mouth, as a one-time dose, has been ordered and he assessed for efficacy. 02/28 -Appears to be tolerating initiation of Abilify so far. Remains delusional, paranoid. May consider further titration tomorrow -Aricept discontinued at patient's request on 02/27/2019. The medication has not been demonstrated to be efficacious for cognitive impairment associated with long-standing schizophrenia however we should be vigilant for slowing of mentation following discontinuation. 03/01 Patient fixated and irrational regarding access to clothing item as above today. Hospital environment becoming incorporated and delusions. Consider possibility that the aripiprazole is contributing to activation. We will increase to 20 mg tomorrow and also start Risperdal 1 mg p.o. twice daily as as needed. 03/02 - Continue with aripiprazole at 20mg daily, consider need for further titration - if tolerating and effective, eventual plan will be for conversion to Abilify Maintena - Pt has not yet utilized risperidone 03/03 - Increase aripiprazole to 25mg (equivalent to 30mg pill) and change to liquid formulation to decrease risk of cheeking/nonadherence, as patient does not believe he needs medication and had been noncompliant prior to hospitalization. - Fasting glucose and lipid profile ordered for tomorrow for monitoring on an atypical antipsychotic. - Private room due to psychosis, agitation, and inappropriate disrobing/sexual behavior. - Meeting with [facility] and [facility] staff when patient able to tolerate. 03/04 - Continue aripiprazole 25mg liquid (30mg pill equivalent) and continue to observe for improvement in thought process/content - consider conversion to Maintena if effective, versus trial of another agent if improvement remains limited - Fasting labs reviewed - all values WNL - Continue medically necessary private room - Request meeting with [facility] staff, in order to obtain details about patient's proximity to baseline 03/05 -Patient refusing liquid aripiprazole, but agrees to take the pill: Ordered 30 mg daily. -Schedule meeting with his spring encaser, [facility] and psych rehab staff. Consider involuntary outpatient commitment at the time of discharge. 03/06 -The patient has improved in that he is more reality based at this point. He continues to harbor fixed, systematized delusions, but is generally able to focus on reality based topics. -Although the patient tells me that he does not feel that aripiprazole has been effective, he is able to accept my opinion in the opinion of the staff that he has improved in response to aripiprazole. -The patient's main objection to aripiprazole oral solution is that he does not like the way it tastes, and within this context, he tells us that he is willing to accept Abilify Maintenaand requests that it be injected into his buttock. Abilify Maintena 300 mg IM ordered, and oral Abilify discontinued. We will resume oral Abilify if the patient subsequently changes his mind and refuses the injection. 03/07 resuming abilfiy oral given his refusal of FARAH form of abilify (2) Substance abuse: 02/25 - Pt has reported history of substance abuse, and recommendation has consistently been for avoidance of substances with significant abuse potential. - PDMP queried - most recent prescriptions below - lorazepam 0.5mg #60 tabs for 30 day supply - Dr. Alves - filled 02/12/2019 - alprazolam 0.5mg #90 tabs for 30 day supply - Dr. Lopez - filled 01/16/2019 - temazepam 30mg #30 caps for 30 day supply - Dr. Lopez - filled 01/16/2019 - Will continue lorazepam 0.5mg BID prn on admission, as only medication that is seemingly active - toxicology screen is negative for benzodiazepines, which questions if he has been taking the medication appropriately - Ideally will taper and discontinue the lorazepam, as recommendation remains that substances with abuse potential be avoided 02/26 -The patient's outpatient providers, during a meeting this morning, report that the patient tends to successfully convince physicians to prescribe benzodiazepines for him and that, in the past, he has abused him to the degree that he is practically obtunded. 02/27 -A repeat check of the PDMP reveals that the patient is consistently being prescribed lorazepam 0.5 mg twice daily (number 60/month) by a Dr. Brent Alves. He is also being prescribed alprazolam 0.[address] mg [address] Jeff Lopez, with the most recent previous prescription of alprazolam being on 01/16/[address] Lopez also prescribed temazepam 30 mg capsules #30 on 01/16/2019. According to his residential providers, no temazepam capsules were found among the patient's belongings. His most recent prescr iption for lorazepam 0.5 mg tablets was filled on 02/12/2019. 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 In the past, he reportedly has used clonazepam and temazepam. -I advised the patient that because of his history of misuse of benzodiazepines we would not be prescribing benzodiazepines during his hospital stay. An as needed order for lorazepam has not been used during hospital stay, and I discontinued the order today. 03/02 - Will need to coordinate care with his PCP and outpatient psychiatrist prior to discharge regarding the above. 03/04 - Charge nurse spoke with the above offices regarding concern for continued benzodiazepine prescriptions - Records will be faxed to their offices on discharge, as all benzodiazepines were discontinued during this hospitalization 03/06 -The patient did not request benzodiazepines and did not complain of anxiety today. I suggested to him that perhaps Abilify is also helping with anxiety in his case, and he responded by saying "perhaps." (3) Hypertension: 02/25 - Continue home dose of clonidine 0.1mg qHS 03/01 Watch mildly elevated blood pressures as patient has been refusing clonidine 03/03 - BP normal past two days, and low today Inventory Assets Strengths: -Intelligence. Support of community providers. Well educated. Needs: Resume symptom-stabilizing medication regimen, coordinate care with [facility] Risk Factors Assessment Male: Yes : Yes Do You Have Access To A Gun?: No Health Problems: Yes Mental Health Diagnoses: Yes Substance Use Disorders: Yes Protective Factors Assessment Faith Beliefs: No : No Responsible for Young Children: No Employed: No Stable Relationships: No Supportive Family: No Good Rapport with Provider: No Interval History Identifying Information SCOTT ROBERTO is a 73-year-old M who currently lives at a [facility] in [place]. Pt has a history of schizophrenia and is known to our unit from several previous admissions, most recently in 09/2016. Pt and was admitted on 02/24/19 16:40 on a 302 involuntary commitment for exacerbation of schizophrenia and heightened paranoia resulting in belief he needed to hide in a dumpster to seek refuge from impending bombings. Pt was found by [facility] staff and brought to the ED by police. Chief Complaint "I do not want to take abilify". Review of Systems Sleep Information Total Hours of Sleep: 8.75 Sleep Comments: pt on q-15 minute checsk Meal Information Percent Meal Consumed - Breakfast: 100 Percent Meal Consumed - Lunch: 100 Percent Meal Consumed - Dinner: 75 Subjective Subjective Patient was seen & assessed and interval progress reviewed with nursing and social work. Pt indicates has thought about abilify maintena and has changed his mind about moving forward on that med and currently does not want to take abilify in general since he took it for 30 days in the past and did nothing. Pt denied symptoms or need for treatment. He was irritable and ended assessment on his own walking out of the room as assessment was in midst of occurring. Of note pt had indicated willingness to take abilfiy maintena yesterday but by time the injection was on the unit had changed his mind. per nursing, sleep, and po intake intact. pt showing lakc of insight and not seeking to engage in treatment process. Physical Exam Psychiatric Orientation: alert, oriented x 3, oriented to person, oriented to place and + guarded (highly); + uncooperative Apperance: appropriately dressed, appropriately groomed and appeared stated age Eye Contact: good eye contact Motor Behavior: steady gait and station, no abnormal motor movements and + psychomotor agitation (restlessness, writhing hands ) Speech: normal rate/rhythm/volume of speech; no pressured speech Affect: + irritable affect and + angry affect Mood: + angry mood; no depressed mood and no anxious mood Thought Process: + concrete thought process; + thought process not clear or coherent and + thought association not intact Thought Content: + preoccupation, + paranoid and + delusions Suicidal Thoughts: denies suicidal thoughts Homicidal Thoughts: denies homicidal thoughts Hallucinations: + auditory hallucinations; no visual hallucinations, no tactile hallucinations and no gustatory hallucinations Cognition: recent memory grossly intact, remote memory grossly intact, attention grossly intact and language grossly intact Estimated Intelligence: consistent with education level and + above average estimated intelligence Insight: + severely impaired insight Judgement: + severely impaired judgement Vital Signs (Past 24 Hours) Last Vital Signs Temp 36.5 C 03/07/19 06:39 Pulse 62 03/07/19 06:40 Resp 18 03/07/19 06:39 BP 118/63 03/07/19 06:40 Pulse Ox 96 02/24/19 08:10 Results & Data Current Inpatient Medications Current Inpatient Medications: Current Inpatient Medications Acetaminophen (Tylenol) 650 mg PO Q4H PRN PRN Reason: Headache or Minor Fever Stop: 03/26/19 16:39 Al Hydrox/Mg Hydrox/Simethicone (Maalox) 30 ml PO Q4H PRN PRN Reason: GI Upset Stop: 03/26/19 16:39 Aripiprazole (Abilify) 30 mg PO QAM [facility] Stop: 04/06/19 08:59 Last Admin: 03/07/19 08:37 Dose: 30 mg Documented by: Benztropine Mesylate (Cogentin) 0.5 mg PO BID MAG Stop: 03/26/19 20:59 Last Admin: 03/07/19 08:40 Dose: Not Given Documented by: Bismuth Subsalicylate (Kaopectate) 15 ml PO PRN PRN PRN Reason: Loose Stool Stop: 03/26/19 16:39 Clonidine HCl (Catapres) 0.1 mg PO HS [facility] Stop: 03/26/19 20:59 Last Admin: 03/06/19 20:57 Dose: 0.1 mg Documented by: Cyanocobalamin (Vitamin B-12) 500 mcg PO DAILY [facility] Stop: 03/27/19 08:59 Last Admin: 03/07/19 08:37 Dose: 500 mcg Documented by: Hydroxyzine HCl (Vistaril) 25 mg PO Q4H PRN PRN Reason: Anxiety Stop: 03/26/19 16:39 Hydroxyzine HCl (Vistaril) 50 mg PO HSZ PRN PRN Reason: Insomnia Stop: 03/26/19 16:39 Magnesium Hydroxide (Milk Of Magnesia) 30 ml PO DAILY PRN PRN Reason: Heartburn Stop: 03/26/19 16:39 Magnesium Oxide (Mag-Ox) 400 mg PO DAILY [facility] Stop: 03/27/19 08:59 Last Admin: 03/07/19 08:36 Dose: 400 mg Documented by: Miscellaneous (Remove Nicoderm Patch) 1 ea N/A HS [facility] Stop: 03/26/19 20:59 Last Admin: 03/06/19 21:10 Dose: Not Given Documented by: Multivitamins (Multivitamin Tab) 1 tab PO DAILY [facility] Stop: 03/27/19 08:59 Last Admin: 03/07/19 08:36 Dose: 1 tab Documented by: Nicotine (Nicoderm Cq) 14 mg TD QAM [facility] Stop: 03/27/19 08:59 Last Admin: 03/07/19 08:36 Dose: Not Given Documented by: Pyridoxine HCl (Vitamin B-6) 100 mg PO DAILY [facility] Stop: 03/27/19 08:59 Last Admin: 03/07/19 08:37 Dose: 100 mg Documented by: Risperidone (Risperdal M) 1 mg PO BID PRN PRN Reason: psychosis Stop: 03/31/19 10:36 Sodium Chloride ([place] Nasal) 1 - 2 sprays NA PRN PRN PRN Reason: Nasal Dryness/Congestion Stop: 03/26/19 16:39 Mental Health & Subst Abuse Tx Therapist Name of Therapist: Sammy Mailroom Assistant Name of Mailroom Assistant: Shruti Lopez Phone Number for Mailroom Assistant: Case Management Appointment Comment: [id number], [place] [address] Post Discharge Appointments Primary Care Physician Name Of Family Doctor: Dr. Lopez Contact Information Discharge Discharge [address]: [address] [place] [id number] CPT Code CPT Code 10650 [id number] (1) Schizophrenia Schizophrenia type: paranoid schizophrenia Qualified Code(s): F20.0 - Paranoid schizophrenia (2) Hypertension Hypertension type: essential hypertension Qualified Code(s): I10 - Essential (primary) hypertension
[2019-03-07] MEDS ORDERED: ARIPiprazole 15 MG TAB PO SCH (13:30)
[2019-03-07] MEDS: cloNIDine HCL 0.1 MG TAB PO SCH (21:27)
[2019-03-08] MEDS: PYRIDOXINE HCL 50 MG TAB PO SCH (08:25)
[2019-03-08] MEDS: ARIPiprazole 15 MG TAB PO SCH (08:25)
[2019-03-08] MEDS: MULTIVITAMIN TAB PO SCH (08:26)
[2019-03-08] MEDS: MAGNESIUM OXIDE 400 MG TAB PO SCH (08:26)
[2019-03-08] MEDS: CYANOCOBALAMIN 500 MCG TABLET (VITAMIN B-12) PO SCH (08:26)
[2019-03-08] MEDS: NICOTINE 14 MG/24 HR PATCH TD SCH (08:29)
[2019-03-08] MEDS: BENZTROPINE MESYLATE 0.5 MG TAB PO SCH ×2 (08:29→21:36)
--- NOTE | 2019-03-08 18:35 | Psychiatric Progress Note ---
Date of Service March 08, 2019 Impression / Recommendations Impression 73-year-old male with schizophrenia who lives at the [facility] and was admitted involuntarily with delusions, hallucinations, irritability and erratic behavior on 02/24/19 after rapidly decompensating 1-2 weeks after he became noncompliant with his prescribed olanzapine. He was found in a dumpster, floridly delusional, and was combative with [facility] staff. He refused resumption of olanzapine, but ultimately agreed to take aripiprazole. Today, after a lengthy discussion about his psychiatric symptoms he does not reference toxoplasmosis, nor does he mention a microchip in his brain. He does, however, say that he at least suspects that some sort of transmitting device may have been maliciously inserted into two of his bicuspid teeth, and it is these teeth that are transmitting sounds and "voices" that others believe are auditory hallucinations. Although the patient, himself, tells us that he does not feel as if aripiprazole has been helpful to him, he also agrees that he is tolerating it well and has not noticed any side effects. He was also able to accept, after some explanation, that the behavioral health treatment team feel that his condition has improved and response to his taking aripiprazole. He tells me that he is "okay" with the idea of continuing aripiprazole, even though he is not convinced that it is of any particular benefit, but strongly dislikes the taste of liquid aripiprazole (which has been given to him because of a concern that he might be "cheeking" medications). I believe that part of the patient's personality is to play doubles advocate and take an adversarial posture for "sport" and, today, when I explained the I am recommending Abilify Maintena in part because of his history of periodic nonadherence with medications in the community, he asked me if I could "prove it." When I smiled, and told him that I could prove it by simply asking him to tell me the truth regarding his outpatient medication adherence, he smiled back and said that "of course" he sometimes stops his medications, either because he does not like them or because he does not feel that there effective. Nevertheless, and within this context, he told me that he would agree to Abilify Maintena. Abilify Maintena 300 mg IM has been ordered and, pt ana moran indicated consent to take but then refused it and indicating not seeking taking abilify in general. (1) Schizophrenia: 02/25 - Continue home medication regimen - as refusing offerings of his antipsychotic, will likely require olanzapine IM (or alternative agent) over objection, given clear evidence of paranoia and delusional thought process - previously stabilized on this medication - Pt agreeable to taking all other medications, with exception of antipsychotic as mentioned above - Admitted to a locked inpatient behavioral health unit, on q15 minute safety checks - Encourage medication initiation/adjustments as indicated - Encourage participation in group and recreational therapies - Gather collateral information from outpatient providers and halfway staff - Suggest family meeting to involve outpatient supports in safety planning - Reschedule appropriate aftercare appointments 02/26 -Patient indicates willingness to sign a release for the [facility] halfway, will get collateral from their staff. -File for 303 involuntary commitment to be held tomorrow. -Recommend medications over objection, with an IM Zyprexa backup for refusal of oral medication. Involve outpatient treatment team to discuss ways to improve stability and compliance; consider long-acting injectable antipsychotic. -Order fasting labs for monitoring on an atypical antipsychotic once patient is more cooperative. 02/27 -The patient was retrained at his involuntary commitment hearing (303) this morning. -He has continuously and consistently refused psychiatric medications to date. However, today, when I explained that that a option that might become necessary in his case is medication over objection, and an intramuscular form, the patient said that he understood and that he would try medications that I prescribe. His initial preference would be olanzapine, but because olanzapine is not available in a long acting depot form, we would first like to try aripiprazole. He indicates that he is taken aripiprazole in the past and has been able to tolerate it, although he does not believe that it has been particularly helpful. -A trial dose of aripiprazole 15 mg by mouth, as a one-time dose, has been ordered and he assessed for efficacy. 02/28 -Appears to be tolerating initiation of Abilify so far. Remains delusional, paranoid. May consider further titration tomorrow -Aricept discontinued at patient's request on 02/27/2019. The medication has not been demonstrated to be efficacious for cognitive impairment associated with long-standing schizophrenia however we should be vigilant for slowing of mentation following discontinuation. 03/01 Patient fixated and irrational regarding access to clothing item as above today. Hospital environment becoming incorporated and delusions. Consider possibility that the aripiprazole is contributing to activation. We will increase to 20 mg tomorrow and also start Risperdal 1 mg p.o. twice daily as as needed. 03/02 - Continue with aripiprazole at 20mg daily, consider need for further titration - if tolerating and effective, eventual plan will be for conversion to Abilify Maintena - Pt has not yet utilized risperidone 03/03 - Increase aripiprazole to 25mg (equivalent to 30mg pill) and change to liquid formulation to decrease risk of cheeking/nonadherence, as patient does not believe he needs medication and had been noncompliant prior to hospitalization. - Fasting glucose and lipid profile ordered for tomorrow for monitoring on an atypical antipsychotic. - Private room due to psychosis, agitation, and inappropriate disrobing/sexual behavior. - Meeting with [facility] and [facility] staff when patient able to tolerate. 03/04 - Continue aripiprazole 25mg liquid (30mg pill equivalent) and continue to observe for improvement in thought process/content - consider conversion to Maintena if effective, versus trial of another agent if improvement remains limited - Fasting labs reviewed - all values WNL - Continue medically necessary private room - Request meeting with [facility] staff, in order to obtain details about patient's proximity to baseline 03/05 -Patient refusing liquid aripiprazole, but agrees to take the pill: Ordered 30 mg daily. -Schedule meeting with his welfare case worker, [facility] and psych rehab staff. Consider involuntary outpatient commitment at the time of discharge. 03/06 -The patient has improved in that he is more reality based at this point. He continues to harbor fixed, systematized delusions, but is generally able to focus on reality based topics. -Although the patient tells me that he does not feel that aripiprazole has been effective, he is able to accept my opinion in the opinion of the staff that he has improved in response to aripiprazole. -The patient's main objection to aripiprazole oral solution is that he does not like the way it tastes, and within this context, he tells us that he is willing to accept Abilify Maintenaand requests that it be injected into his buttock. Abilify Maintena 300 mg IM ordered, and oral Abilify discontinued. We will resume oral Abilify if the patient subsequently changes his mind and refuses the injection. 03/07 resuming abilfiy oral given his refusal of FARAH form of abilify 03/08 is taking abilify po form but refusing abilify maintena form. advise close monitoring for potential of checking given pt's tendency to not want to take medications. (2) Substance abuse: 02/25 - Pt has reported history of substance abuse, and recommendation has consistently been for avoidance of substances with significant abuse potential. - PDMP queried - most recent prescriptions below - lorazepam 0.5mg #60 tabs for 30 day supply - Dr. Alves - filled 02/12/2019 - alprazolam 0.5mg #90 tabs for 30 day supply - Dr. Lopez - filled 01/16/2019 - temazepam 30mg #30 caps for 30 day supply - Dr. Lopez - filled 01/16/2019 - Will continue lorazepam 0.5mg BID prn on admission, as only medication that is seemingly active - toxicology screen is negative for benzodiazepines, which questions if he has been taking the medication appropriately - Ideally will taper and discontinue the lorazepam, as recommendation remains that substances with abuse potential be avoided 02/26 -The patient's outpatient providers, during a meeting this morning, report that the patient tends to successfully convince physicians to prescribe benzodiazepines for him and that, in the past, he has abused him to the degree that he is practically obtunded. 02/27 -A repeat check of the PDMP reveals that the patient is consistently being prescribed lorazepam 0.5 mg twice daily (number 60/month) by a Dr. Brent Alves. He is also being prescribed alprazolam 0.[address] mg [address] Jeff Lopez, with the most recent previous prescription of alprazolam being on 01/16/[address] Lopez also prescribed temazepam 30 mg capsules #30 on 01/16/2019. According to his residential providers, no temazepam capsules were found among the patient's belongings. His most recent prescription for lorazepam 0.5 mg tablets was filled on 02/12/2019. 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 In the past, he reportedly has used clonazepam and temazepam. -I advised the patient that because of his history of misuse of benzodiazepines we would not be prescribing benzodiazepines during his hospital stay. An as needed order for lorazepam has not been used during hospital stay, and I discontinued the order today. 03/02 - Will need to coordinate care with his PCP and outpatient psychiatrist prior to discharge regarding the above. 03/04 - Charge nurse spoke with the above offices regarding concern for continued benzodiazepine prescriptions - Records will be faxed to their offices on discharge, as all benzodiazepines were discontinued during this hospitalization 03/06 -The patient did not request benzodiazepines and did not complain of anxiety today. I suggested to him that perhaps Abilify is also helping with anxiety in his case, and he responded by saying "perhaps." (3) Hypertension: 02/25 - Continue home dose of clonidine 0.1mg qHS 03/01 Watch mildly elevated blood pressures as patient has been refusing clonidine 03/03 - BP normal past two days, and low today Inventory Assets Strengths: -Intelligence. Support of community providers. Well educated. Needs: Resume symptom-stabilizing medication regimen, coordinate care with halfway Risk Factors Assessment Male: Yes : Yes Do You Have Access To A Gun?: No Health Problems: Yes Mental Health Diagnoses: Yes Substance Use Disorders: Yes Protective Factors Assessment Mormon Beliefs: No : No Responsible for Young Children: No Employed: No Stable Relationships: No Supportive Family: No Good Rapport with Provider: No Interval History Identifying Information SCOTT ROBERTO is a 73-year-old M who currently lives at a [facility] in [place]. Pt has a history of schizophrenia and is known to our unit from several previous admissions, most recently in 09/2016. Pt and was admitted on 02/24/19 16:40 on a 302 involuntary commitment for exacerbation of schizophrenia and heightened paranoia resulting in belief he needed to hide in a dumpster to seek refuge from impending bombings. Pt was found by [facility] staff and brought to the ED by police. Chief Complaint "I am fine". Review of Systems Sleep Information Total Hours of Sleep: 6 Sleep Comments: pt on q-15 minute checks Meal Information Percent Meal Consumed - Breakfast: 100 Percent Meal Consumed - Lunch: 100 Percent Meal Consumed - Dinner: 100 Subjective Subjective Patient was seen & assessed and interval progress reviewed with nurses and social media project manager. Pt was unable to engage appropriately in one of the groups on 03/08 indicating all patients need to be on ebnzos and was not willing to engage beyond that. In singer songwriter's assessment he continued to not willing to take Abilify Maintena indicating took Abilify for 30 days in past and did not view it as helpful. He had been indicating would not want Abilify in general yesterday but did take it today. he is indicating not wanting to attend tomorrow scheduled meeting. He denied s/e to his medications or any acute physical concerns nor any pain concerns. He slept fine last night and is eating his meals fully. He was not irritable in engagement with singer songwriter although interaction was superficial and matter of fact. Physical Exam Vital Signs (Past 24 Hours) Last Vital Signs Temp 36.6 C 03/08/19 06:35 Pulse 64 03/08/19 06:35 Resp 16 03/08/19 06:35 BP 102/54 L 03/08/19 06:35 Pulse Ox 96 02/24/19 08:10 Results & Data Current Inpatient Medications Current Inpatient Medications: Current Inpatient Medications Acetaminophen (Tylenol) 650 mg PO Q4H PRN PRN Reason: Headache or Minor Fever Stop: 03/26/19 16:39 Al Hydrox/Mg Hydrox/Simethicone (Maalox) 30 ml PO Q4H PRN PRN Reason: GI Upset Stop: 03/26/19 16:39 Aripiprazole (Abilify) 30 mg PO QAM MAG Stop: 04/06/19 08:59 Last Admin: 03/08/19 08:25 Dose: 30 mg Documented by: Benztropine Mesylate (Cogentin) 0.5 mg PO BID MAG Stop: 03/26/19 20:59 Last Admin: 03/08/19 08:29 Dose: Not Given Documented by: Bismuth Subsalicylate (Kaopectate) 15 ml PO PRN PRN PRN Reason: Loose Stool Stop: 03/26/19 16:39 Clonidine HCl (Catapres) 0.1 mg PO HS MAG Stop: 03/26/19 20:59 Last Admin: 03/07/19 21:27 Dose: 0.1 mg Documented by: Cyanocobalamin (Vitamin B-12) 500 mcg PO DAILY MAG Stop: 03/27/19 08:59 Last Admin: 03/08/19 08:26 Dose: 500 mcg Documented by: Hydroxyzine HCl (Vistaril) 25 mg PO Q4H PRN PRN Reason: Anxiety Stop: 03/26/19 16:39 Hydroxyzine HCl (Vistaril) 50 mg PO HSZ PRN PRN Reason: Insomnia Stop: 03/26/19 16:39 Magnesium Hydroxide (Milk Of Magnesia) 30 ml PO DAILY PRN PRN Reason: Heartburn Stop: 03/26/19 16:39 Magnesium Oxide (Mag-Ox) 400 mg PO DAILY MAG Stop: 03/27/19 08:59 Last Admin: 03/08/19 08:26 Dose: 400 mg Documented by: Miscellaneous (Remove Nicoderm Patch) 1 ea N/A HS MAG Stop: 03/26/19 20:59 Last Admin: 03/07/19 21:28 Dose: Not Given Documented by: Multivitamins (Multivitamin Tab) 1 tab PO DAILY MAG Stop: 03/27/19 08:59 Last Admin: 03/08/19 08:26 Dose: 1 tab Documented by: Nicotine (Nicoderm Cq) 14 mg TD QAM MAG Stop: 03/27/19 08:59 Last Admin: 03/08/19 08:29 Dose: Not Given Documented by: Pyridoxine HCl (Vitamin B-6) 100 mg PO DAILY MAG Stop: 03/27/19 08:59 Last Admin: 03/08/19 08:25 Dose: 100 mg Documented by: Risperidone (Risperdal M) 1 mg PO BID PRN PRN Reason: psychosis Stop: 03/31/19 10:36 Sodium Chloride ([place] Nasal) 1 - 2 sprays NA PRN PRN PRN Reason: Nasal Dryness/Congestion Stop: 03/26/19 16:39 Mental Health & Subst Abuse Tx Therapist Name of Therapist: Denies [employer] [facility] Cashier Name of Snack Bar Cashier: Shruti Lopez Phone Number for Snack Bar Cashier: Case Management Appointment Comment: [phone], [place] [address] Post Discharge Appointments Primary Care Physician Name Of Family Doctor: Dr. Lopez Contact Information Discharge Discharge Address: [address] [place] [address] CPT Code CPT Code 61424 (1) Schizophrenia Schizophrenia type: paranoid schizophrenia Qualified Code(s): F20.0 - Paranoid schizophrenia (2) Hypertension Hypertension type: essential hypertension Qualified Code(s): I10 - Essential (primary) hypertension
[2019-03-08] MEDS: cloNIDine HCL 0.1 MG TAB PO SCH (21:36)
[2019-03-09] MEDS: MULTIVITAMIN TAB PO SCH (07:54)
[2019-03-09] MEDS: ARIPiprazole 15 MG TAB PO SCH (07:54)
[2019-03-09] MEDS: MAGNESIUM OXIDE 400 MG TAB PO SCH (07:54)
[2019-03-09] MEDS: BENZTROPINE MESYLATE 0.5 MG TAB PO SCH ×2 (07:54→20:32)
[2019-03-09] MEDS: CYANOCOBALAMIN 500 MCG TABLET (VITAMIN B-12) PO SCH (07:54)
[2019-03-09] MEDS: NICOTINE 14 MG/24 HR PATCH TD SCH (07:55)
[2019-03-09] MEDS: PYRIDOXINE HCL 50 MG TAB PO SCH (07:55)
--- NOTE | 2019-03-09 15:17 | Psychiatric Progress Note ---
Date of Service March 09, 2019 Impression / Recommendations Impression 73-year-old male with schizophrenia who lives at the [facility] and was admitted involuntarily with delusions, hallucinations, irritability and erratic behavior on 02/24/19 after rapidly decompensating 1-2 weeks after he became noncompliant with his prescribed olanzapine. He was found in a dumpster, floridly delusional, and was combative with [facility] staff. He refused resumption of olanzapine, but ultimately agreed to take aripiprazole. It had initially appeared as if he was responding favorably, although not completely, to the addition of aripiprazole. At the end of last week, he was able to carry on a reality based conversation for more than 15 consecutive minutes with out mentioning a delusional belief, more than once. He also seem to have enough insight to agree to take Abilify Maintena intramuscularly. However, in the several hours between when it was ordered and the time that arrived for administration the patient changed his mind. Subsequent to that, the patient's thought content appears to have become more delusional and his behavior has regressed to significantly less cooperative. Although the patient is not able or willing to provide an explanation, at least a co-occurring event was the fact that he was told on Saturday afternoon that he was doing much better and that the team was considering preparing him for discharge. At that time, he noted that there was no upcoming meeting with his community providers, and made what at that time sounded like an illogical request, which was that his community providers simply bring him most of his clothing to the hospital so he would have it here. When he was asked why he would need his close here if he is to be discharged soon, he said, "we will see." Currently, we suspect that the patient, for whatever reason, is eager not to leave the hospital at this time and may be deliberately sabotaging efforts to discharge him. On the other hand, the behavior we are seeing is largely consistent with the behavior that his community providers are observed, with brief periods of pleasant cooperation, followed by somewhat bumptious refusals to cooperate, coupled with assertions that his providers are not competent. Today, he became angry when I suggested that he might want problems and on the inadequacy of other people, and he left the office abruptly when I suggested that some people would question why people would go to the trouble of following and harassing or want to kill him. (1) Schizophrenia: 02/25 - Continue home medication regimen - as refusing offerings of his antipsyc hotic, will likely require olanzapine IM (or alternative agent) over objection, given clear evidence of paranoia and delusional thought process - previously stabilized on this medication - Pt agreeable to taking all other medications, with exception of antipsychotic as mentioned above - Admitted to a locked inpatient behavioral health unit, on q15 minute safety checks - Encourage medication initiation/adjustments as indicated - Encourage participation in group and recreational therapies - Gather collateral information from outpatient providers and care home staff - Suggest family meeting to involve outpatient supports in safety planning - Reschedule appropriate aftercare appointments 02/26 -Patient indicates willingness to sign a release for the [facility], will get collateral from their staff. -File for 303 involuntary commitment to be held tomorrow. -Recommend medications over objection, with an IM Zyprexa backup for refusal of oral medication. Involve outpatient treatment team to discuss ways to improve stability and compliance; consider long-acting injectable antipsychotic. -Order fasting labs for monitoring on an atypical antipsychotic once patient is more cooperative. 02/27 -The patient was retrained at his involuntary commitment hearing (303) this morning. -He has continuously and consistently refused psychiatric medications to date. However, today, when I explained that that a option that might become necessary in his case is medication over objection, and an intramuscular form, the patient said that he understood and that he would try medications that I prescribe. His initial preference would be olanzapine, but because olanzapine is not available in a long acting depot form, we would first like to try aripiprazole. He indicates that he is taken aripiprazole in the past and has been able to tolerate it, although he does not believe that it has been particularly helpful. -A trial dose of aripiprazole 15 mg by mouth, as a one-time dose, has been ordered and he assessed for efficacy. 02/28 -Appears to be tolerating initiation of Abilify so far. Remains delusional, paranoid. May consider further titration tomorrow -Aricept discontinued at patient's request on 02/27/2019. The medication has not been demonstrated to be efficacious for cognitive impairment associated with long-standing schizophrenia however we should be vigilant for slowing of mentation following discontinuation. 03/01 Patient fixated and irrational regarding access to clothing item as above today. Hospital environment becoming incorporated and delusions. Consider possibility that the aripiprazole is contributing to activation. We will increase to 20 mg tomorrow and also start Risperdal 1 mg p.o. twice daily as as needed. 03/02 - Continue with aripiprazole at 20mg daily, consider need for further titration - if tolerating and effective, eventual plan will be for conversion to Abilify Maintena - Pt has not yet utilized risperidone 03/03 - Increase aripiprazole to 25mg (equivalent to 30mg pill) and change to liquid formulation to decrease risk of cheeking/nonadherence, as patient does not believe he needs medication and had been noncompliant prior to hospitalization. - Fasting glucose and lipid profile ordered for tomorrow for monitoring on an atypical antipsychotic. - Private room due to psychosis, agitation, and inappropriate disrobing/ sexual behavior. - Meeting with [facility] and [facility] staff when patient able to tolerate. 03/04 - Continue aripiprazole 25mg liquid (30mg pill equivalent) and continue to observe for improvement in thought process/content - consider conversion to Maintena if effective, versus trial of another agent if improvement remains limited - Fasting labs reviewed - all values WNL - Continue medically necessary private room - Request meeting with [facility] staff, in order to obtain details about patient's proximity to baseline 03/05 -Patient refusing liquid aripiprazole, but agrees to take the pill: Ordered 30 mg daily. -Schedule meeting with his family preservation caseworker, [facility] and psych rehab staff. Consider involuntary outpatient commitment at the time of discharge. 03/06 -The patient has improved in that he is more reality based at this point. He continues to harbor fixed, systematized delusions, but is generally able to focus on reality based topics. -Although the patient tells me that he does not feel that aripiprazole has been effective, he is able to accept my opinion in the opinion of the staff that he has improved in response to aripiprazole. -The patient's main objection to aripiprazole oral solution is that he does not like the way it tastes, and within this context, he tells us that he is willing to accept Abilify Maintenaand requests that it be injected into his buttock. Abilify Maintena 300 mg IM ordered, and oral Abilify discontinued. We will resume oral Abilify if the patient subsequently changes his mind and refuses the injection. 03/07 resuming abilfiy oral given his refusal of FARAH form of abilify 03/08 is taking abilify po form but refusing abilify maintena form. advise close monitoring for potential of checking given pt's tendency to not want to take medications. 03/09 -The patient is flatly refusing to take aripiprazole in the form of Abilify Maintena. He is also been hesitant to take oral Abilify, but has been doing so. -The patient's lack of cooperation is thought possibly to be related to an un-expressed desire to not be discharged back to the community. He told me today that he left his meeting with his community providers after a few seconds because "just the side of them made me extremely anxious. My pulse elevated to 140." Later, he told me that he was still anxious about it and his pulse was "still around 130." The patient allowed me to take his pulse, and it was approximately 76. At that point he said, "did I say pulse? I meant systolic blood pressure." And when I pointed out that his systolic blood pressure of 130 is not considered to be a particular concern, he said "I mean diastolic." -Our hope had been that the patient would agree to accept a Depo form of medication. He was refusing Haldol Decanoate because of various side effects. Risperidone constant was ruled out as a first-line Depo medication because of the frequency of administration (the patient tends to get into power struggles over medications) and because he says that he is sensitive to "big needles." Invega would be an option, but currently the patient is being so uncooperative that our concern would be that he would cheek the oral tablets that we would have to give him first. Accordingly, the new strategy will be to discontinue Abilify, and resume olanzapine with olanzapine IM over objection if necessary. We will begin the olanzapine Zydis 20 mg at bedtime - (2) Substance abuse: 02/25 - Pt has reported history of substance abuse, and recommendation has consistently been for avoidance of substances with significant abuse potential. - PDMP queried - most recent prescriptions below - lorazepam 0.5mg #60 tabs for 30 day supply - Dr. Alves - filled 02/12/2019 - alprazolam 0.5mg #90 tabs for 30 day supply - Dr. Lopez - filled 01/16/2019 - temazepam 30mg #30 caps for 30 day supply - Dr. Lopez - filled 01/16/2019 - Will continue lorazepam 0.5mg BID prn on admission, as only medication that is seemingly active - toxicology screen is negative for benzodiazepines, which questions if he has been taking the medication appropriately - Ideally will taper and discontinue the lorazepam, as recommendation remains that substances with abuse potential be avoided 02/26 -The patient's outpatient providers, during a meeting this morning, report that the patient tends to successfully convince physicians to prescribe benzodiazepines for him and that, in the past, he has abused him to the degree that he is practically obtunded. 02/27 -A repeat check of the PDMP reveals that the patient is consistently being prescribed lorazepam 0.5 mg twice daily (number 60/month) by a Dr. Brent Alves. He is also being prescribed alprazolam 0.[address] mg [address] Jeff Lopez, with the most recent previous prescription of alprazolam being on 01/16/[address] Lopez also prescribed temazepam 30 mg capsules #30 on 01/16/2019. According to his residential providers, no temazepam capsules were found among the patient's belongings. His most recent prescription for lorazepam 0.5 mg tablets was filled on 02/12/2019. 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 In the past, he reportedly has used clonazepam and temazepam. -I advised the patient that because of his history of misuse of benzodiazepines we would not be prescribing benzodiazepines during his hospital stay. An as needed order for lorazepam has not been used during hospital stay, and I discontinued the order today. 03/02 - Will need to coordinate care with his PCP and outpatient psychiatrist prior to discharge regarding the above. 03/04 - Charge nurse spoke with the above offices regarding concern for continued benzodiazepine prescriptions - Records will be faxed to their offices on discharge, as all benzodiazepines were discontinued during this hospitalization 03/06 -The patient did not request benzodiazepines and did not complain of anxiety today. I suggested to him that perhaps Abilify is also helping with anxiety in his case, and he responded by saying "perhaps." 03/09 -Today, the patient is insisting that what he needs is "benzodiazepines," and explains that the reason he "needs" benzodiazepines is that he has "benzodiazepine receptors," and that he is the only medications that work. He is unable to process warnings about the risks of benzodiazepines in the elderly, including increased risk of falls and mortality. Clearly, the patient is seeking benzodiazepines and has no insight into the associated risks. He also insists that he has never had trouble with benzodiazepines in the past, although there is well-documented of this. (3) Hypertension: 02/25 - Continue home dose of clonidine 0.1mg qHS 03/01 Watch mildly elevated blood pressures as patient has been refusing clonidine 03/03 - BP normal past two days, and low today Inventory Assets Strengths: -Intelligence. Support of community providers. Well educated. Needs: Resume symptom-stabilizing medication regimen, coordinate care with care home Risk Factors Assessment Male: Yes : Yes Do You Have Access To A Gun?: No Health Problems: Yes Mental Health Diagnoses: Yes Substance Use Disorders: Yes Protective Factors Assessment Restorationist Beliefs: No : No Responsible for Young Children: No Employed: No Stable Relationships: No Supportive Family: No Good Rapport with Provider: No Interval History Identifying Information SCOTT ROBERTO is a 73-year-old M who currently lives at a [facility] in [place]. Pt has a history of schizophrenia and is known to our unit from several previous admissions, most recently in 09/2016. Pt and was admitted on 02/24/19 16:40 on a 302 involuntary commitment for exacerbation of schizophrenia and heightened paranoia resulting in belief he needed to hide in a dumpster to seek refuge from impending bombings. Pt was found by [facility] staff and brought to the ED by police. Chief Complaint "I just need Valium". Review of Systems Sleep Information Total Hours of Sleep: 8.25 Sleep Comments: pt on q-15 minute checks Meal Information Percent Meal Consumed - Breakfast: 100 Percent Meal Consumed - Lunch: 100 Percent Meal Consumed - Dinner: 100 Subjective Subjective Patient was seen & assessed and interval progress reviewed with Treatment Team. I met with the patient individually in order to assess his current mental status, evaluate his response to treatment, coordinate any necessary changes in his treatment regimen with the patient, and address issues and concerns that may arise. I commented on the fact that the patient had reportedly refused to meet with his family preservation caseworker and [facility] providers this morning. Staff note that he had been saying for several days that he would refused to meet with him. He entered the room, and, reportedly, sat down for just a matter of a few seconds, stood up and exited the room. He tells me that he did this because he "wanted a hand sewer shoes" to be with him in the room, and when I asked him why he felt he needed a hand sewer shoes he said it was because "those people are not competent. They do not have the experience in the training necessary to provide treatment." I explained that they were not providing treatment but, instead, were providing services that were designed to help him recover. His response to that was to repeat what he had said initially when he entered the room and that was "all I really need his Valium." He went on to make statements such as "I have been taking benzodiazepines for over 25 years and I am not addicted yet," and although he saw the humor in a story that I told him about a man who had smoked 2 packs of cigarettes every day for 40 years and claimed that he was "not addicted yet," he said that there was no parallel between his experience in that. I also try to help the patient understand that benzodiazepines in older persons is often contraindicated because of risk of falls, and the fact that he has not yet fallen does not mean that he is not as heightened risk for falls and other accidents. I pointed out that he is now 73 and while there may not have been as much risk when he was 48 he expressed annoyance and insisted that he was "74." (According to his date of he is 1 month away from being 74.) He reiterated that he is experiencing auditory hallucinations. He attributes these hallucinations to "microchips" that he believes are implanted in his teeth. He also makes reference to brainwashing, and references the technique that was reportedly sometimes used in the 1960s that involves playing certain messages in a continuous loop (such as was demonstrated in the well-known movie the [employer] He reference to believe that the PARVIZ was somehow involved, and when I ask him to tell me why he believed the PARVIZ would be concerned with him, he said "it is probably somebody who was caught being a PARVIZ technique. And when I ask him who might want to do that, he registered is no evidence and announced that he had "become tired of the conversation" and left the room. Physical Exam Psychiatric Orientation: oriented x 3 Apperance: appropriately groomed Eye Contact: good eye contact Motor Behavior: no abnormal motor movements Speech: normal rate/rhythm/volume of speech Affect: + labile affect "My mood is fine. I am just nervous. There are benzodiazepine receptors and I need benzodiazepines to fill the receptors." Thought Process: + tangential thought process Thought Content: + delusions (As above, the patient believes that the PARVIZ or others who are mimicking PARVIZ "brainwashing" techniques are attempting to control his thoughts and behind.) Suicidal Thoughts: denies suicidal thoughts Homicidal Thoughts: denies homicidal thoughts Hallucinations: + auditory hallucinations Cognition: remote memory grossly intact and language grossly intact Estimated Intelligence: + above average estimated intelligence Insight: + severely impaired insight Judgement: + severely impaired judgement Vital Signs (Past 24 Hours) Last Vital Signs Temp 36.4 C L 03/09/19 06:40 Pulse 60 03/09/19 06:41 Resp 18 03/09/19 06:40 BP 110/58 L 03/09/19 06:41 Pulse Ox 96 02/24/19 08:10 Results & Data Current Inpatient Medications Current Inpatient Medications: Current Inpatient Medications Acetaminophen (Tylenol) 650 mg PO Q4H PRN PRN Reason: Headache or Minor Fever Stop: 03/26/19 16:39 Al Hydrox/Mg Hydrox/Simethicone (Maalox) 30 ml PO Q4H PRN PRN Reason: GI Upset Stop: 03/26/19 16:39 Aripiprazole (Abilify) 30 mg PO QAM MAG Stop: 04/06/19 08:59 Last Admin: 03/09/19 07:54 Dose: 30 mg Documented by: Benztropine Mesylate (Cogentin) 0.5 mg PO BID MAG Stop: 03/26/19 20:59 Last Admin: 03/09/19 07:54 Dose: Not Given Documented by: Bismuth Subsalicylate (Kaopectate) 15 ml PO PRN PRN PRN Reason: Loose Stool Stop: 03/26/19 16:39 Clonidine HCl (Catapres) 0.1 mg PO HS MAG Stop: 03/26/19 20:59 Last Admin: 03/08/19 21:36 Dose: 0.1 mg Documented by: Cyanocobalamin (Vitamin B-12) 500 mcg PO DAILY MAG Stop: 03/27/19 08:59 Last Admin: 03/09/19 07:54 Dose: 500 mcg Documented by: Hydroxyzine HCl (Vistaril) 25 mg PO Q4H PRN PRN Reason: Anxiety Stop: 03/26/19 16:39 Hydroxyzine HCl (Vistaril) 50 mg PO HSZ PRN PRN Reason: Insomnia Stop: 03/26/19 16:39 Magnesium Hydroxide (Milk Of Magnesia) 30 ml PO DAILY PRN PRN Reason: Heartburn Stop: 03/26/19 16:39 Magnesium Oxide (Mag-Ox) 400 mg PO DAILY [facility] Stop: 03/27/19 08:59 Last Admin: 03/09/19 07:54 Dose: 400 mg Documented by: Miscellaneous (Remove Nicoderm Patch) 1 ea N/A HS [facility] Stop: 03/26/19 20:59 Last Admin: 03/08/19 21:38 Dose: Not Given Documented by: Multivitamins (Multivitamin Tab) 1 tab PO DAILY [facility] Stop: 03/27/19 08:59 Last Admin: 03/09/19 07:54 Dose: 1 tab Documented by: Nicotine (Nicoderm Cq) 14 mg TD QAM [facility] Stop: 03/27/19 08:59 Last Admin: 03/09/19 07:55 Dose: Not Given Documented by: Pyridoxine HCl (Vitamin B-6) 100 mg PO DAILY [facility] Stop: 03/27/19 08:59 Last Admin: 03/09/19 07:55 Dose: 100 mg Documented by: Risperidone (Risperdal M) 1 mg PO BID PRN PRN Reason: psychosis Stop: 03/31/19 10:36 Sodium Chloride ([place] Nasal) 1 - 2 sprays NA PRN PRN PRN Reason: Nasal Dryness/Congestion Stop: 03/26/19 16:39 Mental Health & Subst Abuse Tx Therapist Name of Therapist: Denies Tub Operator Name of Tub Operator: Shr[facility] Phone Number for Tub Operator: Case Management Appointment Comment: [phone], [place] [address] Post Discharge Appointments Primary Care Physician Name Of Family Doctor: Dr. Lopez Contact Information Discharge Discharge Address: [address] [place] [address], [place] [address] CPT Code CPT Code 65201 (1) Schizophrenia Schizophrenia type: paranoid schizophrenia Qualified Code(s): F20.0 - Paranoid schizophrenia (2) Hypertension Hypertension type: essential hypertension Qualified Code(s): I10 - Essential (primary) hypertension
[2019-03-09] MEDS ORDERED: OLANZapine 10 MG/2.1 ML SDV IM PRN (16:27)
[2019-03-09] MEDS: OLANZAPINE ZYDIS 10 MG ORALLY DIS. TAB PO SCH (20:26)
[2019-03-09] MEDS: cloNIDine HCL 0.1 MG TAB PO SCH (20:33)
[2019-03-10] MEDS: MAGNESIUM OXIDE 400 MG TAB PO SCH (08:50)
[2019-03-10] MEDS: MULTIVITAMIN TAB PO SCH (08:51)
[2019-03-10] MEDS: PYRIDOXINE HCL 50 MG TAB PO SCH (08:51)
[2019-03-10] MEDS: CYANOCOBALAMIN 500 MCG TABLET (VITAMIN B-12) PO SCH (08:51)
[2019-03-10] MEDS: BENZTROPINE MESYLATE 0.5 MG TAB PO SCH ×2 (08:51→20:51)
[2019-03-10] MEDS: NICOTINE 14 MG/24 HR PATCH TD SCH (08:54)
--- NOTE | 2019-03-10 09:33 | Psychiatric Progress Note ---
Date of Service March 10, 2019 Impression / Recommendations Impression 73-year-old male with schizophrenia who lives at the [facility] and was admitted involuntarily with delusions, hallucinations, irritability and erratic behavior on 02/24/19 after rapidly decompensating 1-2 weeks after he became noncompliant with his prescribed olanzapine. He was found in a dumpster, floridly delusional, and was combative with [facility] staff. He refused resumption of olanzapine, but ultimately agreed to take aripiprazole. It had initially appeared as if he was responding favorably, although not completely, to the addition of aripiprazole. At the end of last week, he was able to carry on a reality based conversation for more than 15 consecutive minutes with out mentioning a delusional belief, more than once. He also seem to have enough insight to agree to take Abilify Maintena intramuscularly. However, in the several hours between when it was ordered and the time that arrived for administration the patient changed his mind. Subsequent to that, the patient's thought content appears to have become more delusional and his behavior has regressed to significantly less cooperative. The patient had previously told us that if he had to take an antipsychotic medication he would prefer olanzapine. We had hoped that he would agree to aripiprazole maintain it because of his history of frequent nonadherence with psychiatric medications (other than benzodiazepines, which she has a history of misusing). However, the patient has been refusing, consistently, Abilify Maintena, and he continues to complain of the taste of aripiprazole liquid (necessary because of suspected "cheeking"). Accordingly, we resumed the the prescribed dose of olanzapine on record at the time of admission, namely 20 mg at bedtime. He was given this medication in dissolving tablet form because of the above referenced history of suspected "cheeking." This medication cannot be given in Depo form, but our hope is that if we stabilize his condition further we may be able to get him to agree to a trial of Invega, with a goal of converting to Invega Sustenna. Today, although the patient tells us that he feels "no different" and strongly expresses his opinion that olanzapine has not ever helped him, he also tells us that he is not experiencing any adverse effects associated with olanzapine. At the same time, the staff of noticed some improvement in his behavior today. Accordingly, the plan will be to continue olanzapine 20 mg at bedtime. (1) Schizophrenia: 02/25 - Continue home medication regimen - as refusing offerings of his antipsychotic, will likely require olanzapine IM (or alternative agent) over objection, given clear evidence of paranoia and delusional thought process - previously stabilized on this medication - Pt agreeable to taking all other medications, with exception of antipsychotic as mentioned above - Admitted to a locked inpatient behavioral health unit, on q15 minute safety checks - Encourage medication initiation/adjustments as indicated - Encourage participation in group and recreational therapies - Gather collateral information from outpatient providers and [facility] staff - Suggest family meeting to involve outpatient supports in safety planning - Reschedule appropriate aftercare appointments 02/26 -Patient indicates willingness to sign a release for the [facility], will get collateral from their staff. -File for 303 involuntary commitment to be held tomorrow. -Recommend medications over objection, with an IM Zyprexa backup for refusal of oral medication. Involve outpatient treatment team to discuss ways to improve stability and compliance; consider long-acting injectable antipsychotic. -Order fasting labs for monitoring on an atypical antipsychotic once patient is more cooperative. 02/27 -The patient was retrained at his involuntary commitment hearing (303) this morning. -He has continuously and consistently refused psychiatric medications to date. However, today, when I explained that that a option that might become necessary in his case is medication over objection, and an intramuscular form, the patient said that he understood and that he would try medications that I pr escribe. His initial preference would be olanzapine, but because olanzapine is not available in a long acting depot form, we would first like to try aripiprazole. He indicates that he is taken aripiprazole in the past and has been able to tolerate it, although he does not believe that it has been particularly helpful. -A trial dose of aripiprazole 15 mg by mouth, as a one-time dose, has been or dered and he assessed for efficacy. 02/28 -Appears to be tolerating initiation of Abilify so far. Remains delusional, paranoid. May consider further titration tomorrow -Aricept discontinued at patient's request on 02/27/2019. The medication has not been demonstrated to be efficacious for cognitive impairment associated with long-standing schizophrenia however we should be vigilant for slowing of mentation following discontinuation. 03/01 Patient fixated and irrational regarding access to clothing item as above today. Hospital environment becoming incorporated and delusions. Consider po ssibility that the aripiprazole is contributing to activation. We will increase to 20 mg tomorrow and also start Risperdal 1 mg p.o. twice daily as as needed. 03/02 - Continue with aripiprazole at 20mg daily, consider need for further titration - if tolerating and effective, eventual plan will be for conversion to Abilify Maintena - Pt has not yet utilized risperidone 03/03 - Increase aripiprazole to 25mg (equivalent to 30mg pill) and change to liquid formulation to decrease risk of cheeking/nonadherence, as patient does not believe he needs medication and had been noncompliant prior to hos pitalization. - Fasting glucose and lipid profile ordered for tomorrow for monitoring on an atypical antipsychotic. - Private room due to psychosis, agitation, and inappropriate disrobing/sexual behavior. - Meeting with [facility] and [facility] staff when patient able to tolerate. 03/04 - Continue aripiprazole 25mg liquid (30mg pill equivalent) and continue to observe for improvement in thought process/content - consider conversion to Maintena if effective, versus trial of another agent if improvement remains limited - Fasting labs reviewed - all values WNL - Continue medically necessary private room - Request meeting with [facility] staff, in order to obtain details about patient's proximity to baseline 03/05 -Patient refusing liquid aripiprazole, but agrees to take the pill: Ordered 30 mg daily. -Schedule meeting with his nurse outreach case manager, [facility] and psych rehab staff. Consider involuntary outpatient commitment at the time of discharge. 03/06 -The patient has improved in that he is more reality based at this point. He continues to harbor fixed, systematized delusions, but is generally able to focus on reality based topics. -Although the patient tells me that he does not feel that aripiprazole has been effective, he is able to accept my opinion in the opinion of the staff that he has improved in response to aripiprazole. -The patient's main objection to aripiprazole oral solution is that he does not like the way it tastes, and within this context, he tells us that he is willing to accept Abilify Maintenaand requests that it be injected into his buttock. Abilify Maintena 300 mg IM ordered, and oral Abilify discontinued. We will resume oral Abilify if the patient subsequently changes his mind and refuses the injection. 03/07 resuming abilfiy oral given his refusal of FARAH form of abilify 03/08 is taking abilify po form but refusing abilify maintena form. advise close monitoring for potential of checking given pt's tendency to not want to take medications. 03/09 -The patient is flatly refusing to take aripiprazole in the form of Abilify Maintena. He is also been hesitant to take oral Abilify, but has been doing so. -The patient's lack of cooperation is thought possibly to be related to an un-expressed desire to not be discharged back to the community. He told me today that he left his meeting with his community providers after a few seconds because "just the side of them made me extremely anxious. My pulse elevated to 140." Later, he told me that he was still anxious about it and his pulse was "still around 130." The patient allowed me to take his pulse, and it was approximately 76. At that point he said, "did I say pulse? I meant systolic blood pressure." And when I pointed out that his systolic blood pressure of 130 is not considered to be a particular concern, he said "I mean diastolic." -Our hope had been that the patient would agree to accept a Depo form of medication. He was refusing Haldol Decanoate because of various side effects. Risperidone constant was ruled out as a first-line Depo medication because of the frequency of administration (the patient tends to get into power struggles over medications) and because he says that he is sensitive to "big needles." Invega would be an option, but currently the patient is being so uncooperative that our concern would be that he would cheek the oral tablets that we would have to give him first. Accordingly, the new strategy will be to discontinue Abilify, and resume olanzapine with olanzapine IM over objection if necessary. We will begin the olanzapine Zydis 20 mg at bedtime 03/10 -The patient took the prescribed dose of olanzapine Zydis 20 mg at bedtime last night. Today, he tells me that it "did not help at all." However, staff report that he has been somewhat more agreeable, more pleasant, and less paranoid today. -As he has with other providers, today he told me that I should have given him olanzapine 5 mg "to start", and I explained that he was already on barbara nzapine 20 mg when he came into the hospital and we know that he is able to tolerate that dose. He tells me that he did, in fact tolerate the dose and is not aware of any side effects, but, somewhat illogically, insisted that the dose was "too high for a starting dose." - (2) Substance abuse: 02/25 - Pt has reported history of substance abuse, and recommendation has consistently been for avoidance of substances with significant abuse potential. - PDMP queried - most recent prescriptions below - lorazepam 0.5mg #60 tabs for 30 day supply - Dr. Alves - filled 02/12/2019 - alprazolam 0.5mg #90 tabs for 30 day supply - Dr. Lopez - filled 01/16/2019 - temazepam 30mg #30 caps for 30 day supply - Dr. Lopez - filled 01/16/2019 - Will continue lorazepam 0.5mg BID prn on admission, as only medication that is seemingly active - toxicology screen is negative for benzodiazepines, which questions if he has been taking the medication appropriately - Ideally will taper and discontinue the lorazepam, as recommendation remains that substances with abuse potential be avoided 02/26 -The patient's outpatient providers, during a meeting this morning, report that the patient tends to successfully convince physicians to prescribe benzodiazepines for him and that, in the past, he has abused him to the degree that he is practically obtunded. 02/27 -A repeat check of the PDMP reveals that the patient is consistently being prescribed lorazepam 0.5 mg twice daily (number 60/month) by a Dr. Brent Alves. He is also being prescribed alprazolam 0.[address] mg [address] Jeff Lopez, with the most recent previous prescription of alprazolam being on 01/16/[address] Lopez also prescribed temazepam 30 mg capsules #30 on 01/16/2019. According to his residential providers, no temazepam capsules were found among the patient's belongings. His most recent prescription for lorazepam 0.5 mg tablets was filled on 02/12/2019. 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 In the past, he reportedly has used clonazepam and temazepam. -I advised the patient that because of his history of misuse of benzodiazepines we would not be prescribing benzodiazepines during his hospital stay. An as needed order for lorazepam has not been used during hospital stay, and I discontinued the order today. 03/02 - Will need to coordinate care with his PCP and outpatient psychiatrist prior to discharge regarding the above. 03/04 - Charge nurse spoke with the above offices regarding concern for continued benzodiazepine prescriptions - Records will be faxed to their offices on discharge, as all benzodiazepines were discontinued during this hospitalization 03/06 -The patient did not request benzodiazepines and did not complain of anxiety today. I suggested to him that perhaps Abilify is also helping with anxiety in his case, and he responded by saying "perhaps." 03/09 -Today, the patient is insisting that what he needs is "benzodiazepines," and explains that the reason he "needs" benzodiazepines is that he has "ludmila zodiazepine receptors," and that he is the only medications that work. He is unable to process warnings about the risks of benzodiazepines in the elderly, including increased risk of falls and mortality. Clearly, the patient is seeking benzodiazepines and has no insight into the associated risks. He also insists that he has never had trouble with benzodiazepines in the past, although there is well-documented of this. 03/10 -Today, the patient repeated his insistence that he needs benzodiazepines and that benzodiazepines are the only medications that work because he has "benzodiazepine receptors." After being told that everyone has central nervous system receptors to which benzodiazepines may attach, he replied, "That may be, but some of people need to have benzodiazepines forearm benzodiazepine receptors. (3) Hypertension: 02/25 - Continue home dose of clonidine 0.1mg qHS 03/01 Watch mildly elevated blood pressures as patient has been refusing clonidine 03/03 - BP normal past two days, and low today 03/10 -The patient's blood pressure today was 136/73. His pulse was 71 Inventory Assets Strengths: -Intelligence. Support of community providers. Well educated. Needs: Resume symptom-stabilizing medication regimen, coordinate care with [facility] Risk Factors Assessment Male: Yes : Yes Do You Have Access To A Gun?: No Health Problems: Yes Mental Health Diagnoses: Yes Substance Use Disorders: Yes Protective Factors Assessment Judaism Beliefs: No : No Responsible for Young Children: No Employed: No Stable Relationships: No Supportive Family: No Good Rapport with Provider: No Interval History Identifying Information SCOTT ROBERTO is a 73-year-old M who currently lives at a [facility] in [place]. Pt has a history of schizophrenia and is known to our unit from several previous admissions, most recently in 09/2016. Pt and was admitted on 02/24/19 16:40 on a 302 involuntary commitment for exacerbation of schizophrenia and heightened paranoia resulting in belief he needed to hide in a dumpster to seek refuge from impending bombings. Pt was found by [facility] staff and brought to the ED by police. Chief Complaint "Zyprexa does nothing for me. I've been on it for years." Review of Systems Sleep Information Total Hours of Sleep: 6.5 Sleep Comments: pt on q-15 minute checks Meal Information Percent Meal Consumed - Breakfast: 100 Percent Meal Consumed - Lunch: 100 Percent Meal Consumed - Dinner: 100 Subjective Subjective Patient was seen & assessed and interval progress reviewed with Treatment Team. I met individually with the patient in order to assess his current mental status, evaluate his response to treatment, coordinate any necessary changes in the patient's treatment regimen with him, and address issues and concerns that may arise. Nursing staff report that the patient had a difficult evening last night, ostensibly because he was told that he could not wear a pair of short shorts (that appears if they would rise to the level of his lower buttocks). He refers to these as his "homosexual clothes" and was not able to understand that such garments would be considered an appropriate for any patient, man or woman, to wear on the behavioral health unit. He was also reportedly reluctant to take oral psychiatric medication. As noted yesterday, the patient had continued to refuse Abilify Maintena, and complained of the "bad taste" of aripiprazole liquid, which was necessary because the patient was suspected of "cheeking" his medications. He had previously indicated that he would prefer olanzapine, but, as it was explained to him yesterday, olanzapine does not, and a Depo form and we feel strongly that, given his history of nonadherence with medications in the community, a Depo antipsychotic medication is indicated. The patient did eventually agree to take olanzapine 20 mg last night and today tells me that "it did not do any good," and that he did not experience any side effects from the medication. I reflected that he does appear to be in a better frame of mind today, and that perhaps that had something to do with olanzapine. He denied that this was true, and asserted that I should have started him at "5 mg" even though his previous dose had been 20 mg and he, by all reports, including his, tolerated it well. Physical Exam Psychiatric Orientation: oriented x 3 Apperance: appropriately dressed, appropriately groomed and appeared stated age Eye Contact: + poor eye contact Motor Behavior: no abnormal motor movements Speech: normal rate/rhythm/volume of speech Affect: + irritable affect "Okay." Thought Process: + looseness of associations Thought Content: + delusions Suicidal Thoughts: denies suicidal thoughts Homicidal Thoughts: denies homicidal thoughts Hallucinations: + auditory hallucinations Cognition: recent memory grossly intact, remote memory grossly intact and att ention grossly intact Estimated Intelligence: + above average estimated intelligence Insight: + severely impaired insight Judgement: + severely impaired judgement Vital Signs (Past 24 Hours) Last Vital Signs Temp 36.3 C L 03/10/19 06:29 Pulse 71 03/10/19 06:30 Resp 18 03/10/19 06:29 BP 136/73 03/10/19 06:30 Pulse Ox 96 02/24/19 08:10 Results & Data Current Inpatient Medications Current Inpatient Medications: Current Inpatient Medications Acetaminophen (Tylenol) 650 mg PO Q4H PRN PRN Reason: Headache or Minor Fever Stop: 03/26/19 16:39 Al Hydrox/Mg Hydrox/Simethicone (Maalox) 30 ml PO Q4H PRN PRN Reason: GI Upset Stop: 03/26/19 16:39 Benztropine Mesylate (Cogentin) 0.5 mg PO BID MAG Stop: 03/26/19 20:59 Last Admin: 03/10/19 08:51 Dose: 0.5 mg Documented by: Bismuth Subsalicylate (Kaopectate) 15 ml PO PRN PRN PRN Reason: Loose Stool Stop: 03/26/19 16:39 Clonidine HCl (Catapres) 0.1 mg PO HS MAG Stop: 03/26/19 20:59 Last Admin: 03/09/19 20:33 Dose: Not Given Documented by: Cyanocobalamin (Vitamin B-12) 500 mcg PO DAILY MAG Stop: 03/27/19 08:59 Last Admin: 03/10/19 08:51 Dose: 500 mcg Documented by: Hydroxyzine HCl (Vistaril) 25 mg PO Q4H PRN PRN Reason: Anxiety Stop: 03/26/19 16:39 Hydroxyzine HCl (Vistaril) 50 mg PO HSZ PRN PRN Reason: Insomnia Stop: 03/26/19 16:39 Magnesium Hydroxide (Milk Of Magnesia) 30 ml PO DAILY PRN PRN Reason: Heartburn Stop: 03/26/19 16:39 Magnesium Oxide (Mag-Ox) 400 mg PO DAILY MAG Stop: 03/27/19 08:59 Last Admin: 03/10/19 08:50 Dose: 400 mg Documented by: Miscellaneous (Remove Nicoderm Patch) 1 ea N/A HS MAG Stop: 03/26/19 20:59 Last Admin: 03/09/19 20:33 Dose: Not Given Documented by: Multivitamins (Multivitamin Tab) 1 tab PO DAILY MAG Stop: 03/27/19 08:59 Last Admin: 03/10/19 08:51 Dose: 1 tab Documented by: Nicotine (Nicoderm Cq) 14 mg TD QAM MAG Stop: 03/27/19 08:59 Last Admin: 03/10/19 08:54 Dose: Not Given Documented by: Olanzapine (Zyprexa Zydis Od) 20 mg PO HS MAG Stop: 04/08/19 21:59 Last Admin: 03/09/19 20:26 Dose: 20 mg Documented by: Olanzapine (Zyprexa) 10 mg IM HS PRN PRN Reason: Undecided Stop: 04/08/19 21:59 Pyridoxine HCl (Vitamin B-6) 100 mg PO DAILY MAG Stop: 03/27/19 08:59 Last Admin: 03/10/19 08:51 Dose: 100 mg Documented by: Risperidone (Risperdal M) 1 mg PO BID PRN PRN Reason: psychosis Stop: 03/31/19 10:36 Sodium Chloride (Burke Nasal) 1 - 2 sprays NA PRN PRN PRN Reason: Nasal Dryness/Congestion Stop: 03/26/19 16:39 Mental Health & Subst Abuse Tx Therapist Name of Therapist: Sammy Paint Stockman Name of Paint Stockman: [facility] Poleprashant Resendez Jessica Phone Number for Paint Stockman: Case Management Appointment Comment: [phone], [place] [address] Post Discharge Appointments Primary Care Physician Name Of Family Doctor: Dr. Lopez Contact Information Discharge Discharge Address: [address] [place] [id number] CPT Code CPT Code 85224 (1) Schizophrenia Schizophrenia type: paranoid schizophrenia Qualified Code(s): F20.0 - Paranoid schizophrenia (2) Hypertension Hypertension type: essential hypertension Qualified Code(s): I10 - Essential (primary) hypertension
[2019-03-10] MEDS: cloNIDine HCL 0.1 MG TAB PO SCH (20:51)
[2019-03-10] MEDS: OLANZAPINE ZYDIS 10 MG ORALLY DIS. TAB PO SCH (20:51)
[2019-03-11] MEDS: PYRIDOXINE HCL 50 MG TAB PO SCH (08:43)
[2019-03-11] MEDS: BENZTROPINE MESYLATE 0.5 MG TAB PO SCH ×2 (08:43→21:07)
[2019-03-11] MEDS: MULTIVITAMIN TAB PO SCH (08:43)
[2019-03-11] MEDS: MAGNESIUM OXIDE 400 MG TAB PO SCH (08:43)
[2019-03-11] MEDS: CYANOCOBALAMIN 500 MCG TABLET (VITAMIN B-12) PO SCH (08:43)
[2019-03-11] MEDS: NICOTINE 14 MG/24 HR PATCH TD SCH (08:44)
--- NOTE | 2019-03-11 13:33 | Psychiatric Progress Note ---
Date of Service March 11, 2019 Impression / Recommendations Impression 73-year-old male with schizophrenia who lives at the [facility] and was admitted involuntarily with delusions, hallucinations, irritability and erratic behavior on 02/24/19 after rapidly decompensating 1-2 weeks after he became noncompliant with his prescribed olanzapine. He was found in a dumpster, floridly delusional, and was combative with [facility] staff. He refused resumption of olanzapine, but ultimately agreed to take aripiprazole. It had initially appeared as if he was responding favorably, although not completely, to the addition of aripiprazole. Because of the patient's long history of dangerous behaviors in the community associated with nonadherence with psychiatric medications, the patient's behavioral health unit treatment team as well as his outpatient providers find that the best course of action in his case is the use of a Depo antipsychotic medication. He initially agreed to Abilify Maintena. However, and although it may have been coincidental, subsequent to his being given the feedback that we all felt that he was improving and we could begin moving more quickly towards discharge back to his residential facility, the patient precipitously refused Abilify Maintena, and subsequently became much more oppositional and hostile towards the hospital providers. We are told that this pattern of oppositional behavior is fairly typical for Mr. Roberto, but we are considering the possibility that he is at some level deciding to be oppositional in order to avoid leaving the hospital. In any case, given his history of dangerous behaviors during periods of nonadherence with medications in the community, our finding is that inpatient psychiatric hospitalization remains the least intensive, least restrictive level of care consistent with the patient's clinical and safety needs. (1) Schizophrenia: 02/25 - Continue home medication regimen - as refusing offerings of his antipsychotic, will likely require olanzapine IM (or alternative agent) over objection, given clear evidence of paranoia and delusional thought process - previously stabilized on this medication - Pt agreeable to taking all other medications, with exception of antipsychotic as mentioned above - Admitted to a locked inpatient behavioral health unit, on q15 minute safety checks - Encourage medication initiation/adjustments as indicated - Encourage participation in group and recreational therapies - Gather collateral information from outpatient providers and [facility] staff - Suggest family meeting to involve outpatient supports in safety planning - Reschedule appropriate aftercare appointments 02/26 -Patient indicates willingness to sign a release for the [facility], will get collateral from their staff. -File for 303 involuntary commitment to be held tomorrow. -Recommend medications over objection, with an IM Zyprexa backup for refusal of oral medication. Involve outpatient treatment team to discuss ways to improve stability and compliance; consider long-acting injectable antipsychotic. -Order fasting labs for monitoring on an atypical antipsychotic once patient is more cooperative. 02/27 -The patient was retrained at his involuntary commitment hearing (303) this morning. -He has continuously and consistently refused psychiatric medications to date. However, today, when I explained that that a option that might become ne cessary in his case is medication over objection, and an intramuscular form, the patient said that he understood and that he would try medications that I prescribe. His initial preference would be olanzapine, but because olanzapine is not available in a long acting depot form, we would first like to try aripiprazole. He indicates that he is taken aripiprazole in the past and has been able to tolerate it, although he does not believe that it has been particularly helpful. -A trial dose of aripiprazole 15 mg by mouth, as a one-time dose, has been ordered and he assessed for efficacy. 02/28 -Appears to be tolerating initiation of Abilify so far. Remains delusional, paranoid. May consider further titration tomorrow -Aricept discontinued at patient's request on 02/27/2019. The medication has not been demonstrated to be efficacious for cognitive impairment associated with long-standing schizophrenia however we should be vigilant for slowing of mentation following discontinuation. 03/01 Patient fixated and irrational regarding access to clothing item as above today. Hospital environment becoming incorporated and delusions. Consider possibility that the aripiprazole is contributing to activation. We will increase to 20 mg tomorrow and also start Risperdal 1 mg p.o. twice daily as as needed. 03/02 - Continue with aripiprazole at 20mg daily, consider need for further titrati on - if tolerating and effective, eventual plan will be for conversion to Abilify Maintena - Pt has not yet utilized risperidone 03/03 - Increase aripiprazole to 25mg (equivalent to 30mg pill) and change to liquid formulation to decrease risk of cheeking/nonadherence, as patient does not believe he needs medication and had been noncompliant prior to hospitalization. - Fasting glucose and lipid profile ordered for tomorrow for monitoring on an atypical antipsychotic. - Private room due to psychosis, agitation, and inappropriate disrobing/sexual behavior. - Meeting with [facility] and [facility] staff when patient able to tolerate. 03/04 - Continue aripiprazole 25mg liquid (30mg pill equivalent) and continue to observe for improvement in thought process/content - consider conversion to Maintena if effective, versus trial of another agent if improvement remains limited - Fasting labs reviewed - all values WNL - Continue medically necessary private room - Request meeting with [facility] staff, in order to obtain details about patient's proximity to baseline 03/05 -Patient refusing liquid aripiprazole, but agrees to take the pill: Ordered 30 mg daily. -Schedule meeting with his rehabilitation caseworker, [facility] and psych rehab staff. Consider involuntary outpatient commitment at the time of discharge. 03/06 -The patient has improved in that he is more reality based at this point. He continues to harbor fixed, systematized delusions, but is generally able to focus on reality based topics. -Although the patient tells me that he does not feel that aripiprazole has been effective, he is able to accept my opinion in the opinion of the staff that he has improved in response to aripiprazole. -The patient's main objection to aripiprazole oral solution is that he does not like the way it tastes, and within this context, he tells us that he is willing to accept Abilify Maintenaand requests that it be injected into his buttock. Abilify Maintena 300 mg IM ordered, and oral Abilify discontinued. We will resume oral Abilify if the patient subsequently changes his mind and refuses the injection. 03/07 resuming abilfiy oral given his refusal of FARAH form of abilify 03/08 is taking abilify po form but refusing abilify maintena form. advise close monitoring for potential of checking given pt's tendency to not want to take medications. 03/09 -The patient is flatly refusing to take aripiprazole in the form of Abilify Maintena. He is also been hesitant to take oral Abilify, but has been doing so. -The patient's lack of cooperation is thought possibly to be related to an un-expressed desire to not be discharged back to the community. He told me today that he left his meeting with his community providers after a few seconds because "just the side of them made me extremely anxious. My pulse elevated to 140." Later, he told me that he was still anxious about it and his pulse was "still around 130." The patient allowed me to take his pulse, and it was approximately 76. At that point he said, "did I say pulse? I meant systolic blood pressure." And when I pointed out that his systolic blood pressure of 130 is not considered to be a particular concern, he said "I mean diastolic." -Our hope had been that the patient would agree to accept a Depo form of medication. He was refusing Haldol Decanoate because of various side effects. Risperidone constant was ruled out as a first-line Depo medication because of the frequency of administration (the patient tends to get into power struggles over medications) and because he says that he is sensitive to "big needles." Invega would be an option, but currently the patient is being so uncooperative that our concern would be that he would cheek the oral tablets that we would have to give him first. Accordingly, the new strategy will be to discontinue Abilify, and resume olanzapine with olanzapine IM over objection if necessary. We will begin the olanzapine Zydis 20 mg at bedtime 03/10 -The patient took the prescribed dose of olanzapine Zydis 20 mg at bedtime last night. Today, he tells me that it "did not help at all." However, staff report that he has been somewhat more agreeable, more pleasant, and less paranoid today. -As he has with other providers, today he told me that I should have given him olanzapine 5 mg "to start", and I explained that he was already on olanzapine 20 mg when he came into the hospital and we know that he is able to tolerate that dose. He tells me that he did, in fact tolerate the dose and is not aware of any side effects, but, somewhat illogically, insisted that the dose was "too high for a starting dose." 03/11 - Continue current medication regimen at this time - olanzapine 20mg daily - Encourage participation in the milieu and in group programming as tolerated (2) Substance abuse: 02/25 - Pt has reported history of substance abuse, and recommendation has consistently been for avoidance of substances with significant abuse potential. - PDMP queried - most recent prescriptions below - lorazepam 0.5mg #60 tabs for 30 day supply - Dr. Alves - filled 02/12/2019 - alprazolam 0.5mg #90 tabs for 30 day supply - Dr. Lopez - filled 01/16/2019 - temazepam 30mg #30 caps for 30 day supply - Dr. Lopez - filled 01/16/2019 - Will continue lorazepam 0.5mg BID prn on admission, as only medication that is seemingly active - toxicology screen is negative for benzodiazepines, which questions if he has been taking the medication appropriately - Ideally will taper and discontinue the lorazepam, as recommendation remains that substances with abuse potential be avoided 02/26 -The patient's outpatient providers, during a meeting this morning, report that the patient tends to successfully convince physicians to prescribe benzo diazepines for him and that, in the past, he has abused him to the degree that he is practically obtunded. 02/27 -A repeat check of the PDMP reveals that the patient is consistently being prescribed lorazepam 0.5 mg twice daily (number 60/month) by a Dr. Brent Alves. He is also being prescribed alprazolam 0.[address] mg [address] Jeff Lopez, with the most recent previous prescription of alprazolam being on 01/16/[address] Lopez also prescribed temazepam 30 mg capsules #30 on 01/16/2019. According to his residential providers, no temazepam capsules were found among the patient's belongings. His most recent prescription for lorazepam 0.5 mg tablets was filled on 02/12/2019. It seems clear that this patient is receiving benzodiazepines from more than one physicia n, even within the context of his history of benzodiazepine abuse. In the past, he reportedly has used clonazepam and temazepam. -I advised the patient that because of his history of misuse of benzo diazepines we would not be prescribing benzodiazepines during his hospital stay. An as needed order for lorazepam has not been used during hospital stay, and I discontinued the order today. 03/02 - Will need to coordinate care with his PCP and outpatient psychiatrist prior to discharge regarding the above. 03/04 - Charge nurse spoke with the above offices regarding concern for continued benzodiazepine prescriptions - Records will be faxed to their offices on discharge, as all benzodiazepines were discontinued during this hospitalization 03/06 -The patient did not request benzodiazepines and did not complain of anxiety today. I suggested to him that perhaps Abilify is also helping with anxiety in his case, and he responded by saying "perhaps." 03/09 -Today, the patient is insisting that what he needs is "benzodiazepines," and explains that the reason he "needs" benzodiazepines is that he has "benzodiazepine receptors," and that he is the only medications that work. He is unable to process warnings about the risks of benzodiazepines in the elderly, including increased risk of falls and mortality. Clearly, the patient is seeking benzodiazepines and has no insight into the associated risks. He also insists that he has never had trouble with benzodiazepines in the past, although there is well-documented of this. 03/10 -Today, the patient repeated his insistence that he needs benzodiazepines and that benzodiazepines are the only medications that work because he has "benzodiazepine receptors." After being told that everyone has central nervous system receptors to which benzodiazepines may attach, he replied, "That may be, but some of people need to have benzodiazepines forearm benzodiazepine receptors. (3) Hypertension: 02/25 - Continue home dose of clonidine 0.1mg qHS 03/01 Watch mildly elevated blood pressures as patient has been refusing clonidine 03/03 - BP normal past two days, and low today 03/10 -The patient's blood pressure today was 136/73. His pulse was 71 Inventory Assets Strengths: -Intelligence. Support of community providers. Well educated. Needs: Resume symptom-stabilizing medication regimen, coordinate care with [facility]pc Risk Factors Assessment Male: Yes : Yes Do You Have Access To A Gun?: No Health Problems: Yes Mental Health Diagnoses: Yes Substance Use Disorders: Yes Protective Factors Assessment Jehovah'S Witness Beliefs: No : No Responsible for Young Children: No Employed: No Stable Relationships: No Supportive Family: No Good Rapport with Provider: No Interval History Identifying Information SCOTT ROBERTO is a 73-year-old M who currently lives at a [facility] in [place]. Pt has a history of schizophrenia and is known to our unit from several previous admissions, most recently in 09/2016. Pt and was admitted on 02/24/19 16:40 on a 302 involuntary commitment for exacerbation of schizophrenia and heightened paranoia resulting in belief he needed to hide in a dumpster to seek refuge from impending bombings. Pt was found by [facility] staff and brought to the ED by police. Chief Complaint "Who are you? And what are your credentials again?" Review of Systems Notes Pt unwilling at this time to participate in review of systems, does not verbalize any acute concerns. Sleep Information Total Hours of Sleep: 8.5 Sleep Comments: pt on q-15 minute checks Meal Information Percent Meal Consumed - Breakfast: 100 Percent Meal Consumed - Lunch: 100 Percent Meal Consumed - Dinner: 100 Subjective Subjective Patient was seen & assessed and interval progress reviewed with Treatment Team. Staff reports a plan to proceed with filing for an inpatient extended involuntary commitment, as patient has not been showing much additional progress or insight. Pt was reportedly withdrawn most of the day yesterday, attending very limited programming. Pt was seen today to assess progress since admission. Pt was limited in his willingness to participate in conversation today. Pt initially asked this provider's name and credentials - and was surprisingly willing to continue conversation (typically unwilling to speak further after he is reminded this provider is a physician information technology assistant). Pt states he is "fine" today and denies any new concerns. He abruptly ends the conversation after being asked more detailed questions of his day - by stating "I'm not going to talk anymore." Physical Exam Psychiatric Orientation: alert and oriented x 3; + uncooperative Apperance: appropriately dressed, appropriately groomed and appeared stated age Eye Contact: + poor eye contact Motor Behavior: steady gait and station and no abnormal motor movements Speech: normal rate/rhythm/volume of speech Affect: + irritable affect Pt unwilling to participate in conversation regarding current mood Thought Process: + concrete thought process Cognition: language grossly intact Insight: + severely impaired insight Judgement: + severely impaired judgement Vital Signs (Past 24 Hours) Last Vital Signs Temp 36.6 C 03/11/19 06:39 Pulse 64 03/11/19 06:40 Resp 18 03/11/19 06:39 BP 126/77 03/11/19 06:40 Pulse Ox 96 02/24/19 08:10 Results & Data Current Inpatient Medications Current Inpatient Medications: Current Inpatient Medications Acetaminophen (Tylenol) 650 mg PO Q4H PRN PRN Reason: Headache or Minor Fever Stop: 03/26/19 16:39 Al Hydrox/Mg Hydrox/Simethicone (Maalox) 30 ml PO Q4H PRN PRN Reason: GI Upset Stop: 03/26/19 16:39 Benztropine Mesylate (Cogentin) 0.5 mg PO BID [facility] Stop: 03/26/19 20:59 Last Admin: 03/11/19 08:43 Dose: Not Given Documented by: Bismuth Subsalicylate (Kaopectate) 15 ml PO PRN PRN PRN Reason: Loose Stool Stop: 03/26/19 16:39 Clonidine HCl (Catapres) 0.1 mg PO HS MAG Stop: 03/26/19 20:59 Last Admin: 03/10/19 20:51 Dose: 0.1 mg Documented by: Cyanocobalamin (Vitamin B-12) 500 mcg PO DAILY [facility] Stop: 03/27/19 08:59 Last Admin: 03/11/19 08:43 Dose: 500 mcg Documented by: Hydroxyzine HCl (Vistaril) 25 mg PO Q4H PRN PRN Reason: Anxiety Stop: 03/26/19 16:39 Hydroxyzine HCl (Vistaril) 50 mg PO HSZ PRN PRN Reason: Insomnia Stop: 03/26/19 16:39 Magnesium Hydroxide (Milk Of Magnesia) 30 ml PO DAILY PRN PRN Reason: Heartburn Stop: 03/26/19 16:39 Magnesium Oxide (Mag-Ox) 400 mg PO DAILY MAG Stop: 03/27/19 08:59 Last Admin: 03/11/19 08:43 Dose: 400 mg Documented by: Miscellaneous (Remove Nicoderm Patch) 1 ea N/A HS [facility] Stop: 03/26/19 20:59 Last Admin: 03/10/19 20:52 Dose: Not Given Documented by: Multivitamins (Multivitamin Tab) 1 tab PO DAILY [facility] Stop: 03/27/19 08:59 Last Admin: 03/11/19 08:43 Dose: 1 tab Documented by: Nicotine (Nicoderm Cq) 14 mg TD QAM MAG Stop: 03/27/19 08:59 Last Admin: 03/11/19 08:44 Dose: Not Given Documented by: Olanzapine (Zyprexa Zydis Od) 20 mg PO HS [facility] Stop: 04/08/19 21:59 Last Admin: 03/10/19 20:51 Dose: 20 mg Documented by: Olanzapine (Zyprexa) 10 mg IM HS PRN PRN Reason: Undecided Stop: 04/08/19 21:59 Pyridoxine HCl (Vitamin B-6) 100 mg PO DAILY MAG Stop: 03/27/19 08:59 Last Admin: 03/11/19 08:43 Dose: 100 mg Documented by: Risperidone (Risperdal M) 1 mg PO BID PRN PRN Reason: psychosis Stop: 03/31/19 10:36 Sodium Chloride ([place] Nasal) 1 - 2 sprays NA PRN PRN PRN Reason: Nasal Dryness/Congestion Stop: 03/26/19 16:39 Mental Health & Subst Abuse Tx Therapist Name of Therapist: Sammy [employer] Sales Engineer Name of [employer] Sales Engineer: Shruti Lopez Phone Number for [employer] Sales Engineer: Case Management Appointment Comment: [phone], [place] [address] Post Discharge Appointments Primary Care Physician Name Of Family Doctor: Dr. Lopez Contact Information Discharge Discharge Address: [address] [place] [id number] CPT Code CPT Code 65578 (1) Schizophrenia Schizophrenia type: paranoid schizophrenia Qualified Code(s): F20.0 - Paranoid schizophrenia (2) Hypertension Hypertension type: essential hypertension Qualified Code(s): I10 - Essential (primary) hypertension
[2019-03-11] MEDS: cloNIDine HCL 0.1 MG TAB PO SCH (21:07)
[2019-03-11] MEDS: OLANZAPINE ZYDIS 10 MG ORALLY DIS. TAB PO SCH (21:07)
[2019-03-12] MEDS: CYANOCOBALAMIN 500 MCG TABLET (VITAMIN B-12) PO SCH (08:32)
[2019-03-12] MEDS: MULTIVITAMIN TAB PO SCH (08:32)
[2019-03-12] MEDS: MAGNESIUM OXIDE 400 MG TAB PO SCH (08:32)
[2019-03-12] MEDS: NICOTINE 14 MG/24 HR PATCH TD SCH (08:33)
[2019-03-12] MEDS: PYRIDOXINE HCL 50 MG TAB PO SCH (08:34)
[2019-03-12] MEDS: BENZTROPINE MESYLATE 0.5 MG TAB PO SCH ×2 (08:59→21:04)
--- NOTE | 2019-03-12 11:10 | Psychiatric Progress Note ---
Date of Service March 12, 2019 Impression / Recommendations Impression 73-year-old male with schizophrenia who lives at the [facility] and was admitted involuntarily with delusions, hallucinations, irritability and erratic behavior on 02/24/19 after rapidly decompensating 1-2 weeks after he became noncompliant with his prescribed olanzapine. He was found in a dumpster, floridly delusional, and was combative with [facility] staff. He refused resumption of olanzapine, but ultimately agreed to take aripiprazole. It had initially appeared as if he was responding favorably, although not completely, to the addition of aripiprazole. He also initially agreed to accept Abilify Maintena, which the patient's treatment team on the behavioral health unit as well as his community providers find will be strongly preferred given his history of frequent medication nonadherence in the community. However, and perhaps coincidentally, once he was told that he had improved and that after his injection we would be in a position to move more rapidly towards a discharge, he flatly refused depot aripiprazole, became markedly less cooperative and more hostile with staff. At baseline, the patient exhibits psychotic symptomatology. However, when off his medications he engages in dangerous behaviors that have recently included hiding in a dumpster because he was fearing for his life and felt that he needed a "ferrous" protection from "rays" and "poison pens" (as he later explained), not sleeping for days at the time, and making terroristic threats to kill outpatient providers and their children. The patient continues to have no insight at all into his illness and continues to tell staff that he has been infected with toxoplasmosis and can be healed with the "proper" medications. However, when asked what symptoms of toxoplasmosis may be causing in his case, he says "none." Although the patient is clearly quite intelligent, his lack of insight, coupled with pronounced difficulty with operational thought and logic substantially interfere with treatment and recovery. (1) Schizophrenia: 02/25 - Continue home medication regimen - as refusing offerings of his antipsychotic, will likely require olanzapine IM (or alternative agent) over objection, given clear evidence of paranoia and delusional thought process - previously stabilized on this medication - Pt agreeable to taking all other medications, with exception of antipsyc hotic as mentioned above - Admitted to a locked inpatient behavioral health unit, on q15 minute safety checks - Encourage medication initiation/adjustments as indicated - Encourage participation in group and recreational therapies - Gather collateral information from outpatient providers and snf staff - Suggest family meeting to involve outpatient supports in safety planning - Reschedule appropriate aftercare appointments 02/26 -Patient indicates willingness to sign a release for the [facility], will get collateral from their staff. -File for 303 involuntary commitment to be held tomorrow. -Recommend medications over objection, with an IM Zyprexa backup for refusal of oral medication. Involve outpatient treatment team to discuss ways to improve stability and compliance; consider long-acting injectable antipsychotic. -Order fasting labs for monitoring on an atypical antipsychotic once patient is more cooperative. 02/27 -The patient was retrained at his involuntary commitment hearing (303) this morning. -He has continuously and consistently refused psychiatric medications to date. However, today, when I explained that that a option that might become necessary in his case is medication over objection, and an intramuscular form, the patient said that he understood and that he would try medications that I prescribe. His initial preference would be olanzapine, but because olanzapine is not available in a long acting depot form, we would first like to try aripiprazole. He indicates that he is taken aripiprazole in the past and has been able to tolerate it, although he does not believe that it has been particularly helpful. -A trial dose of aripiprazole 15 mg by mouth, as a one-time dose, has been ordered and he assessed for efficacy. 02/28 -Appears to be tolerating initiation of Abilify so far. Remains delusional, paranoid. May consider further titration tomorrow -Aricept discontinued at patient's request on 02/27/2019. The medication has not been demonstrated to be efficacious for cognitive impairment associated with long-standing schizophrenia however we should be vigilant for slowing of mentation following discontinuation. 03/01 Patient fixated and irrational regarding access to clothing item as above today. Hospital environment becoming incorporated and delusions. Consider possibility that the aripiprazole is contributing to activation. We will increase to 20 mg tomorrow and also start Risperdal 1 mg p.o. twice daily as as needed. 03/02 - Continue with aripiprazole at 20mg daily, consider need for further titration - if tolerating and effective, eventual plan will be for conversion to Abilify Maintena - Pt has not yet utilized risperidone 03/03 - Increase aripiprazole to 25mg (equivalent to 30mg pill) and change to liquid formulation to decrease risk of cheeking/nonadherence, as patient does not believe he needs medication and had been noncompliant prior to hospitalization. - Fasting glucose and lipid profile ordered for tomorrow for monitoring on an atypical antipsychotic. - Private room due to psychosis, agitation, and inappropriate disrobing/sexual behavior. - Meeting with [facility] and [facility] staff when patient able to tolerate. 03/04 - Continue aripiprazole 25mg liquid (30mg pill equivalent) and continue to observe for improvement in thought process/content - consider conversion to Maintena if effective, versus trial of another agent if improvement remains limited - Fasting labs reviewed - all values WNL - Continue medically necessary private room - Request meeting with [facility] staff, in order to obtain details about patient's proximity to baseline 03/05 -Patient refusing liquid aripiprazole, but agrees to take the pill: Ordered 30 mg daily. -Schedule meeting with his lining caser, CR[facility] and psych rehab staff. Consider involuntary outpatient commitment at the time of discharge. 03/06 -The patient has improved in that he is more reality based at this point. He continues to harbor fixed, systematized delusions, but is generally able to focus on reality based topics. -Although the patient tells me that he does not feel that aripiprazole has been effective, he is able to accept my opinion in the opinion of the staff that he has improved in response to aripiprazole. -The patient's main objection to aripiprazole oral solution is that he does not like the way it tastes, and within this context, he tells us that he is willing to accept Abilify Maintenaand requests that it be injected into his buttock. Abilify Maintena 300 mg IM ordered, and oral Abilify discontinued. We will resume oral Abilify if the patient subsequently changes his mind and refuses the injection. 03/07 resuming abilfiy oral given his refusal of FARAH form of abilify 03/08 is taking abilify po form but refusing abilify maintena form. advise close monitoring for potential of checking given pt's tendency to not want to take medications. 03/09 -The patient is flatly refusing to take aripiprazole in the form of Abilify Maintena. He is also been hesitant to take oral Abilify, but has been doing so. -The patient's lack of cooperation is thought possibly to be related to an un-expressed desire to not be discharged back to the community. He told me today that he left his meeting with his community providers after a few seconds because "just the side of them made me extremely anxious. My pulse elevated to 140." Later, he told me that he was still anxious about it and his pulse was "still around 130." The patient allowed me to take his pulse, and it was approximately 76. At that point he said, "did I say pulse? I meant systolic blood pressure." And when I pointed out that his systolic blood pressure of 130 is not considered to be a particular concern, he said "I mean diastolic." -Our hope had been that the patient would agree to accept a Depo form of medication. He was refusing Haldol Decanoate because of various side effects. Risperidone constant was ruled out as a first-line Depo medication because of the frequency of administration (the patient tends to get into power struggles over medications) and because he says that he is sensitive to "big needles." Invega would be an option, but currently the patient is being so uncooperative that our concern would be that he would cheek the oral tablets that we would have to give him first. Accordingly, the new strategy will be to discontinue Abilify, and resume olanzapine with olanzapine IM over objection if necessary. We will begin the olanzapine Zydis 20 mg at bedtime 03/10 -The patient took the prescribed dose of olanzapine Zydis 20 mg at bedtime last night. Today, he tells me that it "did not help at all." However, staff report that he has been somewhat more agreeable, more pleasant, and less paranoid today. -As he has with other providers, today he told me that I should have given him olanzapine 5 mg "to start", and I explained that he was already on olanzapine 20 mg when he came into the hospital and we know that he is able to tolerate that dose. He tells me that he did, in fact tolerate the dose and is not aware of any side effects, but, somewhat illogically, insisted that the dose was "too high for a starting dose." 03/11 - Continue current medication regimen at this time - olanzapine 20mg daily - Encourage participation in the milieu and in group programming as tolerated 03/12 -Continue current medication regimen. The patient's condition has not yet improved. -The patient does participate in select groups, but often tends to be disruptive. (2) Substance abuse: 02/25 - Pt has reported history of substance abuse, and recommendation has consistently been for avoidance of substances with significant abuse potential. - PDMP queried - most recent prescriptions below - lorazepam 0.5mg #60 tabs for 30 day supply - Dr. Alves - filled 02/12/2019 - alprazolam 0.5mg #90 tabs for 30 day supply - Dr. Lopez - filled 01/16/2019 - temazepam 30mg #30 caps for 30 day supply - Dr. Lopez - filled 01/16/2019 - Will continue lorazepam 0.5mg BID prn on admission, as only medication that is seemingly active - toxicology screen is negative for benzodiazepines, which questions if he has been taking the medication appropriately - Ideally will taper and discontinue the lorazepam, as recommendation remains that substances with abuse potential be avoided 02/26 -The patient's outpatient providers, during a meeting this morning, report that the patient tends to successfully convince physicians to prescribe benzodiazepines for him and that, in the past, he has abused him to the degree that he is practically obtunded. 02/27 -A repeat check of the PDMP reveals that the patient is consistently being prescribed lorazepam 0.5 mg twice daily (number 60/month) by a Dr. Brent Alves. He is also being prescribed alprazolam 0.[address] mg [address] Jeff Lopez, with the most recent previous prescription of alprazolam being on 01/16/[address] Lopez also prescribed temazepam 30 mg capsules #30 on 01/16/2019. According to his residential providers, no temazepam capsules were found among the patient's belongings. His most recent prescription for lorazepam 0.5 mg tablets was filled on 02/12/2019. 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 In the past, he reportedly has used clonazepam and temazepam. -I advised the patient that because of his history of misuse of benzodiazepines we would not be prescribing benzodiazepines during his hospital stay. An as needed order for lorazepam has not been used during hospital stay, and I discontinued the order today. 03/02 - Will need to coordinate care with his PCP and outpatient psychiatrist prior to discharge regarding the above. 03/04 - Charge nurse spoke with the above offices regarding concern for continued benzodiazepine prescriptions - Records will be faxed to their offices on discharge, as all benzodiazepines were discontinued during this hospitalization 03/06 -The patient did not request benzodiazepines and did not complain of anxiety today. I suggested to him that perhaps Abilify is also helping with anxiety in his case, and he responded by saying "perhaps." 03/09 -Today, the patient is insisting that what he needs is "benzodiazepines," and explains that the reason he "needs" benzodiazepines is that he has "benzodiazepine receptors," and that he is the only medications that work. He is unable to process warnings about the risks of benzodiazepines in the elderly, including increased risk of falls and mortality. Clearly, the patient is seeking benzodiazepines and has no insight into the associated risks. He also insists that he has never had trouble with benzodiazepines in the past, although there is well-documented of this. 03/10 -Today, the patient repeated his insistence that he needs benzodiazepines and that benzodiazepines are the only medications that work because he has "benzodiazepine receptors." After being told that everyone has central nervous system receptors to which benzodiazepines may attach, he replied, "That may be, but some of people need to have benzodiazepines forearm benzodiazepine receptors. 03/12 -The patient continues to insist that he only requires benzodiazepines. When risks are pointed out to him, and when he is reminded of past complications associated with excessive use of benzodiazepines, his responses generally, "prove it." (3) Hypertension: 02/25 - Continue home dose of clonidine 0.1mg qHS 03/01 Watch mildly elevated blood pressures as patient has been refusing clonidine 03/03 - BP normal past two days, and low today 03/10 -The patient's blood pressure today was 136/73. His pulse was 71 Inventory Assets Strengths: -Intelligence. Support of community providers. Well educated. Needs: Resume symptom-stabilizing medication regimen, coordinate care with snf Risk Factors Assessment Male: Yes : Yes Do You Have Access To A Gun?: No Health Problems: Yes Mental Health Diagnoses: Yes Substance Use Disorders: Yes Protective Factors Assessment Bahai Beliefs: No : No Responsible for Young Children: No Employed: No Stable Relationships: No Supportive Family: No Good Rapport with Provider: No Interval History Identifying Information SCOTT ROBERTO is a 73-year-old M who currently lives at a [facility] in [place]. Pt has a history of schizophrenia and is known to our unit from several previous admissions, most recently in 09/2016. Pt and was admitted on 02/24/19 16:40 on a 302 involuntary commitment for exacerbation of schizophrenia and heightened paranoia resulting in belief he needed to hide in a dumpster to seek refuge from impending bombings. Pt was found by [facility] staff and brought to the ED by police. Chief Complaint "I want my Marnie Rights". Review of Systems Sleep Information Total Hours of Sleep: 7.75 Sleep Comments: pt awoke x1 to eat 2 boxes of cereals with milk. pt appeared to be asleep within 1/2 hr afterwards. pt on q-15 minute checks Meal Information Percent Meal Consumed - Breakfast: 100 Percent Meal Consumed - Lunch: 100 Percent Meal Consumed - Dinner: 100 Subjective Subjective Patient was seen & assessed and interval progress reviewed with Treatment Team. I met individually with the patient in order to assess his current mental status, evaluate his response to treatment, coordinate any necessary medication changes with the patient, and address issues and concerns that arise. The patient notes that he is aware of the upcoming 304 hearing which is scheduled for this coming Saturday, and he tells me repeatedly that it "is not necessary" and he is "demanding" his right to leave. For most of the encounter, the patient talked about the fact that he feels that he is entitled to have his Marnie rights read to him, and when I repeatedly explained to him that he is not being charged with the crime he responded first by saying, "are you sure? I believe I am." And, later, he replied to the same assertion that "[he is] being treated like a criminal. I should have the same rights as a criminal." As it is generally the case with Mr. Roberto, he seems to truly believe that whatever he says is accurate and makes perfect sense, and reality testing generally leads to either stony silence or his abrupt departure from the interview. I asked him if he was noticing any improvement with the Zyprexa/olanzapine, and he said "Zyprexa is a nothing drug. It does not do any good." I asked him about side effects, and he reported that he is having no side effects from Z yprexa/olanzapine, but then inexplicably began to insist that the dose be decreased from the current 20 mg dosage to 5 mg because "5 mg is the correct dose in a hospital." I pointed out that he had been taking 20 mg prior to admission, and he said, "that was in a different setting. In the hospital, if you do what you were doing, you would know that 5 mg is the correct dose." I attempted to change the subject, but the patient stood up and abruptly left the room. I was able to ask him if he thought that this pattern of behavior was adaptive or otherwise was somehow working for him, and he replied, "yes. You will see." The patient's nearly complete lack of insight, coupled with dangerous behaviors towards self and others in the community within the context of his history of treatment nonadherence in the community renders inpatient psychiatric hospitalization the least restrictive, at least intensive level of care consistent with the patient's safety and clinical needs. Physical Exam Psychiatric Orientation: oriented x 3 Apperance: appropriately dressed, appropriately groomed and appeared stated age Eye Contact: + fair eye contact Motor Behavior: no abnormal motor movements The patient's speech is rarely spontaneous, and is often delivered in a clipped brief fashion. Affect: + irritable affect "Fine." Tangential and illogical. Thought Content: + delusions Today, the patient tells me that he believes that he is being charged with a criminal offense (he did not say what) and insists that he is entitled to have his Marnie rights. Suicidal Thoughts: denies suicidal thoughts Homicidal Thoughts: denies homicidal thoughts Hallucinations: + auditory hallucinations The patient continues to report that he believes that there is a microchip implanted in his teeth that is sending auditory signals to his ears. The patient did not cooperate with memory testing today. However, he was able to tell me spontaneously that he is to have an involuntary commitment hearing on Saturday. Estimated Intelligence: + above average estimated intelligence Insight: + severely impaired insight Judgement: + severely impaired judgement Vital Signs (Past 24 Hours) Last Vital Signs Temp 36.6 C 03/12/19 06:39 Pulse 73 03/12/19 06:40 Resp 18 03/12/19 06:39 BP 110/61 03/12/19 06:40 Pulse Ox 96 02/24/19 08:10 Results & Data Current Inpatient Medications Current Inpatient Medications: Current Inpatient Medications Acetaminophen (Tylenol) 650 mg PO Q4H PRN PRN Reason: Headache or Minor Fever Stop: 03/26/19 16:39 Al Hydrox/Mg Hydrox/Simethicone (Maalox) 30 ml PO Q4H PRN PRN Reason: GI Upset Stop: 03/26/19 16:39 Benztropine Mesylate (Cogentin) 0.5 mg PO BID MAG Stop: 03/26/19 20:59 Last Admin: 03/12/19 08:59 Dose: Not Given Documented by: Bismuth Subsalicylate (Kaopectate) 15 ml PO PRN PRN PRN Reason: Loose Stool Stop: 03/26/19 16:39 Clonidine HCl (Catapres) 0.1 mg PO HS MAG Stop: 03/26/19 20:59 Last Admin: 03/11/19 21:07 Dose: 0.1 mg Documented by: Cyanocobalamin (Vitamin B-12) 500 mcg PO DAILY MAG Stop: 03/27/19 08:59 Last Admin: 03/12/19 08:32 Dose: 500 mcg Documented by: Hydroxyzine HCl (Vistaril) 25 mg PO Q4H PRN PRN Reason: Anxiety Stop: 03/26/19 16:39 Hydroxyzine HCl (Vistaril) 50 mg PO HSZ PRN PRN Reason: Insomnia Stop: 03/26/19 16:39 Magnesium Hydroxide (Milk Of Magnesia) 30 ml PO DAILY PRN PRN Reason: Heartburn Stop: 03/26/19 16:39 Magnesium Oxide (Mag-Ox) 400 mg PO DAILY MAG Stop: 03/27/19 08:59 Last Admin: 03/12/19 08:32 Dose: 400 mg Documented by: Miscellaneous (Remove Nicoderm Patch) 1 ea N/A HS MAG Stop: 03/26/19 20:59 Last Admin: 03/11/19 21:11 Dose: Not Given Documented by: Multivitamins (Multivitamin Tab) 1 tab PO DAILY MAG Stop: 03/27/19 08:59 Last Admin: 03/12/19 08:32 Dose: 1 tab Documented by: Nicotine (Nicoderm Cq) 14 mg TD QAM MAG Stop: 03/27/19 08:59 Last Admin: 03/12/19 08:33 Dose: Not Given Documented by: Olanzapine (Zyprexa Zydis Od) 20 mg PO HS MAG Stop: 04/08/19 21:59 Last Admin: 03/11/19 21:07 Dose: 20 mg Documented by: Olanzapine (Zyprexa) 10 mg IM HS PRN PRN Reason: Undecided Stop: 04/08/19 21:59 Pyridoxine HCl (Vitamin B-6) 100 mg PO DAILY MAG Stop: 03/27/19 08:59 Last Admin: 03/12/19 08:34 Dose: 100 mg Documented by: Risperidone (Risperdal M) 1 mg PO BID PRN PRN Reason: psychosis Stop: 03/31/19 10:36 Sodium Chloride ([place] Nasal) 1 - 2 sprays NA PRN PRN PRN Reason: Nasal Dryness/Congestion Stop: 03/26/19 16:39 Mental Health & Subst Abuse Tx Therapist Name of Therapist: Sammy Hand Screen Printer Name of Hand Screen Printer: Shruti Lopez Phone Number for Hand Screen Printer: Case Management Appointment Comment: [phone], [place] [address] Post Discharge Appointments Primary Care Physician Name Of Family Doctor: Dr. Lopez Contact Information Discharge Discharge Address: [address] [place] [address], [place] [address] CPT Code CPT Code 06016 (1) Schizophrenia Schizophrenia type: paranoid schizophrenia Qualified Code(s): F20.0 - Paranoid schizophrenia (2) Hypertension Hypertension type: essential hypertension Qualified Code(s): I10 - Essential (primary) hypertension
[2019-03-12] MEDS: OLANZAPINE ZYDIS 10 MG ORALLY DIS. TAB PO SCH (21:04)
[2019-03-12] MEDS: cloNIDine HCL 0.1 MG TAB PO SCH (21:04)
[2019-03-13] MEDS: MAGNESIUM OXIDE 400 MG TAB PO SCH (08:35)
[2019-03-13] MEDS: PYRIDOXINE HCL 50 MG TAB PO SCH (08:35)
[2019-03-13] MEDS: BENZTROPINE MESYLATE 0.5 MG TAB PO SCH ×2 (08:35→21:11)
[2019-03-13] MEDS: MULTIVITAMIN TAB PO SCH (08:35)
[2019-03-13] MEDS: CYANOCOBALAMIN 500 MCG TABLET (VITAMIN B-12) PO SCH (08:35)
[2019-03-13] MEDS: NICOTINE 14 MG/24 HR PATCH TD SCH (08:39)
--- NOTE | 2019-03-13 11:42 | Psychiatric Progress Note ---
Date of Service March 13, 2019 Impression / Recommendations Impression 73-year-old male with schizophrenia who lives at the [facility] and was admitted involuntarily with delusions, hallucinations, irritability and erratic behavior on 02/24/19 after rapidly decompensating 1-2 weeks after he became noncompliant with his prescribed olanzapine. He was found in a dumpster, floridly delusional, and was combative with [facility] staff. He refused resumption of olanzapine, but ultimately agreed to take aripiprazole. It had initially appeared as if he was responding favorably, although not completely, to the addition of aripiprazole. Because of the patient's long history of dangerous behaviors in the community associated with nonadherence with psychiatric medications, the patient's behavioral health unit treatment team as well as his outpatient providers find that the best course of action in his case is the use of a Depo antipsychotic medication. He initially agreed to Abilify Maintena. However, and although it may have been coincidental, subsequent to his being given the feedback that we all felt that he was improving and we could begin moving more quickly towards discharge back to his residential facility, the patient precipitously refused Abilify Maintena, and subsequently became much more oppositional and hostile towards the hospital providers. We are told that this pattern of oppositional behavior is fairly typical for Mr. Roberto, but we are considering the possibility that he is at some level deciding to be oppositional in order to avoid leaving the hospital. In any case, given his history of dangerous behaviors during periods of nonadherence with medications in the community, our finding is that inpatient psychiatric hospitalization remains the least intensive, least restrictive level of care consistent with the patient's clinical and safety needs. Today, the patient insists that he is eager to return to [facility] and "loves" living there. He seems to be unable to reconcile the apparent contradiction between his report that he is eager to return to [facility] and the fact that he is unwilling to meet with their representatives. He is continuing to exhibit psychotic beliefs. Today, he confides that he believes that a person or persons unseen have used some form of a fine needle to surreptitiously inject him with a "chemical" or "drug" that has caused extreme anxiety. He also believes that the end goal of this person or persons is to cause his . He also tells me that he needs to have his "benzodiazepine receptors" satisfied with "Valium 10 mg." (1) Schizophrenia: 02/25 - Continue home medication regimen - as refusing offerings of his antipsychotic, will likely require olanzapine IM (or alternative agent) over objection, given clear evidence of paranoia and delusional thought process - previously stabilized on this medication - Pt agreeable to taking all other medications, with exception of antipsychotic as mentioned above - Admitted to a locked inpatient behavioral health unit, on q15 minute safety checks - Encourage medication initiation/adjustments as indicated - Encourage participation in group and recreational therapies - Gather collateral information from outpatient providers and penitentiary staff - Suggest family meeting to involve outpatient supports in safety planning - Reschedule appropriate aftercare appointments 02/26 -Patient indicates willingness to sign a release for the [facility], will get collateral from their staff. -File for 303 involuntary commitment to be held tomorrow. -Recommend medications over objection, with an IM Zyprexa backup for refusal of oral medication. Involve outpatient treatment team to discuss ways to improve stability and compliance; consider long-acting injectable antipsychotic. -Order fasting labs for monitoring on an atypical antipsychotic once patient is more cooperative. 02/27 -The patient was retrained at his involuntary commitment hearing (303) this morning. -He has continuously and consistently refused psychiatric medications to date. However, today, when I explained that that a option that might become necessary in his case is medication over objection, and an intramuscular form, the patient said that he understood and that he would try medications that I prescribe. His initial preference would be olanzapine, but because olanzapine is not available in a long acting depot form, we would first like to try aripiprazole. He indicates that he is taken aripiprazole in the past and has been able to tolerate it, although he does not believe that it has been particularly helpful. -A trial dose of aripiprazole 15 mg by mouth, as a one-time dose, has been ordered and he assessed for efficacy. 02/28 -Appears to be tolerating initiation of Abilify so far. Remains delusional, paranoid. May consider further titration tomorrow -Aricept discontinued at patient's request on 02/27/2019. The medication has not been demonstrated to be efficacious for cognitive impairment associated with long-standing schizophrenia however we should be vigilant for slowing of mentation following discontinuation. 03/01 Patient fixated and irrational regarding access to clothing item as above today. Hospital environment becoming incorporated and delusions. Consider possibility that the aripiprazole is contributing to activation. We will increase to 20 mg tomorrow and also start Risperdal 1 mg p.o. twice daily as as needed. 03/02 - Continue with aripiprazole at 20mg daily, consider need for further titration - if tolerating and effective, eventual plan will be for conversion to Abilify Maintena - Pt has not yet utilized risperidone 03/03 - Increase aripiprazole to 25mg (equivalent to 30mg pill) and change to liquid formulation to decrease risk of cheeking/nonadherence, as patient does not believe he needs medication and had been noncompliant prior to hospitalization. - Fasting glucose and lipid profile ordered for tomorrow for monitoring on an atypical antipsychotic. - Private room due to psychosis, agitation, and inappropriate disrobing/sexual behavior. - Meeting with [facility] and [facility] staff when patient able to tolerate. 03/04 - Continue aripiprazole 25mg liquid (30mg pill equivalent) and continue to observe for improvement in thought process/content - consider conversion to Maintena if effective, versus trial of another agent if improvement remains limited - Fasting labs reviewed - all values WNL - Continue medically necessary private room - Request meeting with [facility] staff, in order to obtain details about patient's proximity to baseline 03/05 -Patient refusing liquid aripiprazole, but agrees to take the pill: Ordered 30 mg daily. -Schedule meeting with his case operator, [facility] and psych rehab staff. Consider involuntary outpatient commitment at the time of discharge. 03/06 -The patient has improved in that he is more reality based at this point. He continues to harbor fixed, systematized delusions, but is generally able to focus on reality based topics. -Although the patient tells me that he does not feel that aripiprazole has been effective, he is able to accept my opinion in the opinion of the staff that he has improved in response to aripiprazole. -The patient's main objection to aripiprazole oral solution is that he does not like the way it tastes, and within this context, he tells us that he is willing to accept Abilify Maintenaand requests that it be injected into his buttock. Abilify Maintena 300 mg IM ordered, and oral Abilify discontinued. We will resume oral Abilify if the patient subsequently changes his mind and refuses the injection. 03/07 resuming abilfiy oral given his refusal of FARAH form of abilify 03/08 is taking abilify po form but refusing abilify maintena form. advise close monitoring for potential of checking given pt's tendency to not want to take medications. 03/09 -The patient is flatly refusing to take aripiprazole in the form of Abilify Maintena. He is also been hesitant to take oral Abilify, but has been doing so. -The patient's lack of cooperation is thought possibly to be related to an un-expressed desire to not be discharged back to the community. He told me today that he left his meeting with his community providers after a few seconds because "just the side of them made me extremely anxious. My pulse elevated to 140." Later, he told me that he was still anxious about it and his pulse was "still around 130." The patient allowed me to take his pulse, and it was approximately 76. At that point he said, "did I say pulse? I meant systolic blood pressure." And when I pointed out that his systolic blood pressure of 130 is not considered to be a particular concern, he said "I mean diastolic." -Our hope had been that the patient would agree to accept a Depo form of medication. He was refusing Haldol Decanoate because of various side effects. Risperidone constant was ruled out as a first-line Depo medication because of the frequency of administration (the patient tends to get into power struggles over medications) and because he says that he is sensitive to "big needles." Invega would be an option, but currently the patient is being so uncooperative that our concern would be that he would cheek the oral tablets that we would have to give him first. Accordingly, the new strategy will be to discontinue Abilify, and resume olanzapine with olanzapine IM over objection if necessary. We will begin the olanzapine Zydis 20 mg at bedtime 03/10 -The patient took the prescribed dose of olanzapine Zydis 20 mg at bedtime last night. Today, he tells me that it "did not help at all." However, staff report that he has been somewhat more agreeable, more pleasant, and less paranoid today. -As he has with other providers, today he told me that I should have given him olanzapine 5 mg "to start", and I explained that he was already on olanzapine 20 mg when he came into the hospital and we know that he is able to tolerate that dose. He tells me that he did, in fact tolerate the dose and is not aware of any side effects, but, somewhat illogically, insisted that the dose was "too high for a starting dose." 03/11 - Continue current medication regimen at this time - olanzapine 20mg daily - Encourage participation in the milieu and in group programming as tolerated 03/12 -Continue current medication regimen. The patient's condition has not yet improved. -The patient does participate in select groups, but often tends to be disruptive. 03/13 -Today, the patient seems to be somewhat more cooperative and less frankly delusional. It was possible to engage in a mostly reality based conversation for 5 or 10 minutes at a time. Also, although he was unhappy with me when I refused to provide him with a dose of Valium for anxiety, he was able to remain pleasant and calm at this time, did not storm from the room." (2) Substance abuse: 02/25 - Pt has reported history of substance abuse, and recommendation has consistently been for avoidance of substances with significant abuse potential. - PDMP queried - most recent prescriptions below - lorazepam 0.5mg #60 tabs for 30 day supply - Dr. Alves - filled 02/12/2019 - alprazolam 0.5mg #90 tabs for 30 day supply - Dr. Lopez - filled 01/16/2019 - temazepam 30mg #30 caps for 30 day supply - Dr. Lopez - filled 01/16/2019 - Will continue lorazepam 0.5mg BID prn on admission, as only medication that is seemingly active - toxicology screen is negative for benzodiazepines, which questions if he has been taking the medication appropriately - Ideally will taper and discontinue the lorazepam, as recommendation remains that substances with abuse potential be avoided 02/26 -The patient's outpatient providers, during a meeting this morning, report that the patient tends to successfully convince physicians to prescribe benzodiazepines for him and that, in the past, he has abused him to the degree that he is practically obtunded. 02/27 -A repeat check of the PDMP reveals that the patient is consistently being prescribed lorazepam 0.5 mg twice daily (number 60/month) by a Dr. Brent Alves. He is also being prescribed alprazolam 0.[address] mg [address] Jeff Lopez, with the most recent previous prescription of alprazolam being on 01/16/[address] Lopez also prescribed temazepam 30 mg capsules #30 on 01/16/2019. According to his residential providers, no temazepam capsules were found among the patient's belongings. His most recent prescription for lorazepam 0.5 mg tablets was filled on 02/12/2019. 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 In the past, he reportedly has used clonazepam and temazepam. -I advised the patient that because of his history of misuse of benzodiazepines we would not be prescribing benzodiazepines during his hospital stay. An as needed order for lorazepam has not been used during hospital stay, and I discontinued the order today. 03/02 - Will need to coordinate care with his PCP and outpatient psychiatrist prior to discharge regarding the above. 03/04 - Charge nurse spoke with the above offices regarding concern for continued benzodiazepine prescriptions - Records will be faxed to their offices on discharge, as all benzodiazepines were discontinued during this hospitalization 03/06 -The patient did not request benzodiazepines and did not complain of anxiety today. I suggested to him that perhaps Abilify is also helping with anxiety in his case, and he responded by saying "perhaps." 03/09 -Today, the patient is insisting that what he needs is "benzodiazepines," and explains that the reason he "needs" benzodiazepines is that he has "b enzodiazepine receptors," and that he is the only medications that work. He is unable to process warnings about the risks of benzodiazepines in the elderly, including increased risk of falls and mortality. Clearly, the patient is seeking benzodiazepines and has no insight into the associated risks. He also insists that he has never had trouble with benzodiazepines in the past, although there is well-documented of this. 03/10 -Today, the patient repeated his insistence that he needs benzodiazepines and that benzodiazepines are the only medications that work because he has "benzodiazepine receptors." After being told that everyone has central nervous system receptors to which benzodiazepines may attach, he replied, "That may be, but some of people need to have benzodiazepines forearm benzodiazepine receptors. 03/12 -Continues to request Benzodiazepines. 03/13 -Requests Valium for his "benzodiazepines." (3) Hypertension: 02/25 - Continue home dose of clonidine 0.1mg qHS 03/01 Watch mildly elevated blood pressures as patient has been refusing clonidine 03/03 - BP normal past two days, and low today 03/10 -The patient's blood pressure today was 136/73. His pulse was 71 Inventory Assets Strengths: -Intelligence. Support of community providers. Well educated. Needs: Resume symptom-stabilizing medication regimen, coordinate care with penitentiary Risk Factors Assessment Male: Yes : Yes Do You Have Access To A Gun?: No Health Problems: Yes Mental Health Diagnoses: Yes Substance Use Disorders: Yes Protective Factors Assessment Tenriism Beliefs: No : No Responsible for Young Children: No Employed: No Stable Relationships: No Supportive Family: No Good Rapport with Provider: No Interval History Identifying Information SCOTT ROBERTO is a 73-year-old M who currently lives at a [facility] in [place]. Pt has a history of schizophrenia and is known to our unit from several previous admissions, most recently in 09/2016. Pt and was admitted on 02/24/19 16:40 on a 302 involuntary commitment for exacerbation of schizophrenia and heightened paranoia resulting in belief he needed to hide in a dumpster to seek refuge from impending bombings. Pt was found by [facility] staff and brought to the ED by police. Chief Complaint "I think that I've been given something to make me anxious". Review of Systems Sleep Information Total Hours of Sleep: 7.75 Sleep Comments: pt awoke and ate cereals/milk @0330. pt appeared to be asleep within 1/2 hr . pt on q-15 minute checks Meal Information Percent Meal Consumed - Breakfast: 100 Percent Meal Consumed - Lunch: 100 Percent Meal Consumed - Dinner: 100 Subjective Subjective Patient was seen & assessed and interval progress reviewed with Treatment Team. I met with the patient individually in order to assess his current mental status, evaluate his response to treatment, coordinate any necessary changes in the patient's treatment regimen and coordination with the patient, and address issues and concerns that may arise. The patient began by entering my office and telling me that he had been given a "drug" that was causing him to feel anxious. When I asked him who would give him the drug, he said "oh, you will never see them." I asked him if he was able to see them, and he said "no." When I asked him how this person or the's persons had administered the drug, presumably against his will, he said "oh, it is a very fine needle and I never feel it." I asked that we change the subject and get back to the matter about which we had spoken yesterday which was, namely, the patient's habit of focusing almost exclusively on the incompetence of others, without being willing to consider what role he, himself and his behaviors may have on his current circumstances. He responded, "none." I then asked him how it was that an intelligent 73-year-old man comes to be living in the psychiatric residential facility, and found to have periodic psychiatric hospitalizations, and he replied, "that is exactly the point. I am surrounded by incompetent unqualified people." I asked him if he did not want more than living on his days in a residential psychiatric penitentiary, and he said "why should I? I love where I live. I really love [facility]. I love going in the van. I like the [facility], it is all great." I then reminded the patient that earlier this week he had refused to meet with the staff from [facility] as part of a plan, at that point, to begin transition back to his residential facility. I also reminded him that, at the time, he had told me that he panicked at the site of the staff from [facility] and "wants nothing to do with him." Today, he tells me "well, it is that there are just so incompetent. They do not have the kind of training that they need to have to make the kinds of decisions they are making, and they will not let me educate them." I then asked him if he understood that, educated are not, qualified or not, these of the people that will be making the decisions about whether he can come back to their penitentiary and that I would like for him to help me understand why he would be sabotaged by refusing to meet with him. He replied, "you tell me." So I suggested that one way that this might make sense is that he genuinely does not want to return to [facility] and is consciously sabotaging. He assures me that this is not the case. He then began to tell me how anxious he was feeling and told me that he needed "Valium 10 mg." When I told him that he knows perfectly well that were not planning to give him any benzodiazepines while he is here and that he should not be asking for them he asked, quite politely, "Are we finished now?" I asked him if he wanted to be finished, and he said "for now." Physical Exam Psychiatric Orientation: oriented x 3 Apperance: appropriately dressed, appropriately groomed and appeared stated age Eye Contact: + fair eye contact Motor Behavior: + tremor Speech: normal rate/rhythm/volume of speech Affect: + irritable affect "Fine." Thought Process: + tangential thought process Thought Content: + delusions Today, the patient tells me that he believes that a person or persons unseen have injected a drug that is causing him to feel anxious as "part of the big picture." Suicidal Thoughts: denies suicidal thoughts Homicidal Thoughts: denies homicidal thoughts Hallucinations: + auditory hallucinations Cognition: recent memory grossly intact and remote memory grossly intact The patient was able to correctly recall the names of the individuals who participated in the provider meeting that he was supposed of had the beginning of the week. He also spontaneously recalled the fact that he had left the room precipitously after "a few seconds." However, today, he provided an explanation that was different than that which had been given at the time. Estimated Intelligence: + above average estimated intelligence Insight: + severely impaired insight Judgement: + severely impaired judgement Vital Signs (Past 24 Hours) Last Vital Signs Temp 36.4 C L 03/13/19 06:42 Pulse 69 03/13/19 06:44 Resp 18 03/13/19 06:42 BP 114/70 03/13/19 06:44 Pulse Ox 96 02/24/19 08:10 Results & Data Current Inpatient Medications Current Inpatient Medications: Current Inpatient Medications Acetaminophen (Tylenol) 650 mg PO Q4H PRN PRN Reason: Headache or Minor Fever Stop: 03/26/19 16:39 Al Hydrox/Mg Hydrox/Simethicone (Maalox) 30 ml PO Q4H PRN PRN Reason: GI Upset Stop: 03/26/19 16:39 Benztropine Mesylate (Cogentin) 0.5 mg PO BID MAG Stop: 03/26/19 20:59 Last Admin: 03/13/19 08:35 Dose: 0.5 mg Documented by: Bismuth Subsalicylate (Kaopectate) 15 ml PO PRN PRN PRN Reason: Loose Stool Stop: 03/26/19 16:39 Clonidine HCl (Catapres) 0.1 mg PO HS MAG Stop: 03/26/19 20:59 Last Admin: 03/12/19 21:04 Dose: 0.1 mg Documented by: Cyanocobalamin (Vitamin B-12) 500 mcg PO DAILY MAG Stop: 03/27/19 08:59 Last Admin: 03/13/19 08:35 Dose: 500 mcg Documented by: Hydroxyzine HCl (Vistaril) 25 mg PO Q4H PRN PRN Reason: Anxiety Stop: 03/26/19 16:39 Hydroxyzine HCl (Vistaril) 50 mg PO HSZ PRN PRN Reason: Insomnia Stop: 03/26/19 16:39 Magnesium Hydroxide (Milk Of Magnesia) 30 ml PO DAILY PRN PRN Reason: Heartburn Stop: 03/26/19 16:39 Magnesium Oxide (Mag-Ox) 400 mg PO DAILY MAG Stop: 03/27/19 08:59 Last Admin: 03/13/19 08:35 Dose: 400 mg Documented by: Miscellaneous (Remove Nicoderm Patch) 1 ea N/A HS [facility] Stop: 03/26/19 20:59 Last Admin: 03/12/19 21:04 Dose: Not Given Documented by: Multivitamins (Multivitamin Tab) 1 tab PO DAILY MAG Stop: 03/27/19 08:59 Last Admin: 03/13/19 08:35 Dose: 1 tab Documented by: Nicotine (Nicoderm Cq) 14 mg TD QAM MAG Stop: 03/27/19 08:59 Last Admin: 03/13/19 08:39 Dose: Not Given Documented by: Olanzapine (Zyprexa Zydis Od) 20 mg PO HS MAG Stop: 04/08/19 21:59 Last Admin: 03/12/19 21:04 Dose: 20 mg Documented by: Olanzapine (Zyprexa) 10 mg IM HS PRN PRN Reason: Undecided Stop: 04/08/19 21:59 Pyridoxine HCl (Vitamin B-6) 100 mg PO DAILY MAG Stop: 03/27/19 08:59 Last Admin: 03/13/19 08:35 Dose: 100 mg Documented by: Risperidone (Risperdal M) 1 mg PO BID PRN PRN Reason: psychosis Stop: 03/31/19 10:36 Sodium Chloride ([place] Nasal) 1 - 2 sprays NA PRN PRN PRN Reason: Nasal Dryness/Congestion Stop: 03/26/19 16:39 Mental Health & Subst Abuse Tx Therapist Name of Therapist: Denies Heel Finisher Name of Heel Finisher: Shruti Lopez Phone Number for Heel Finisher: Case Management Appointment Comment: [phone], [place] [address] Post Discharge Appointments Primary Care Physician Name Of Family Doctor: Dr. Lopez Contact Information Discharge Discharge [address]: [address] [place] [id number] CPT Code CPT Code 62224 (1) Schizophrenia Schizophrenia type: paranoid schizophrenia Qualified Code(s): F20.0 - Paranoid schizophrenia (2) Hypertension Hypertension type: essential hypertension Qualified Code(s): I10 - Essential (primary) hypertension
[2019-03-13] MEDS: cloNIDine HCL 0.1 MG TAB PO SCH (21:11)
[2019-03-13] MEDS: OLANZAPINE ZYDIS 10 MG ORALLY DIS. TAB PO SCH (21:12)
[2019-03-14] MEDS: BENZTROPINE MESYLATE 0.5 MG TAB PO SCH ×2 (08:31→20:59)
[2019-03-14] MEDS: MAGNESIUM OXIDE 400 MG TAB PO SCH (08:31)
[2019-03-14] MEDS: NICOTINE 14 MG/24 HR PATCH TD SCH ×2 (08:31→08:36)
[2019-03-14] MEDS: MULTIVITAMIN TAB PO SCH (08:31)
[2019-03-14] MEDS: PYRIDOXINE HCL 50 MG TAB PO SCH (08:31)
[2019-03-14] MEDS: CYANOCOBALAMIN 500 MCG TABLET (VITAMIN B-12) PO SCH (08:31)
--- NOTE | 2019-03-14 09:18 | Psychiatric Progress Note ---
Date of Service March 14, 2019 Impression / Recommendations Impression 73-year-old male with schizophrenia who lives at the [facility] and was admitted involuntarily with delusions, hallucinations, irritability and erratic behavior on 02/24/19 after rapidly decompensating 1-2 weeks after he became noncompliant with his prescribed olanzapine. He was found in a dumpster, floridly delusional, and was combative with [facility] staff. He refused resumption of olanzapine, but ultimately agreed to take aripiprazole. It had initially appeared as if he was responding favorably, although not completely, to the addition of aripiprazole. Because of the patient's long history of dangerous behaviors in the community associated with nonadherence with psychiatric medications, the patient's behavioral health unit treatment team as well as his outpatient providers find that the best course of action in his case is the use of a Depo antipsychotic medication. He initially agreed to Abilify Maintena. However, and although per MD staff there is some thought that this agreement may have been coincidental, subsequent to his being given the feedback that we all felt that he was improving and we could begin moving more quickly towards discharge back to his residential facility, the patient precipitously refused Abilify Maintena, and subsequently became much more oppositional and hostile towards the hospital providers. This pattern of oppositional behavior is fairly typical for Mr. Roberto, but staff has considered the possibility that he is at some level deciding to be oppositional in order to avoid leaving the hospital. Regardless, given his history of dangerous behaviors during periods of nonadherence with medications in the community, our finding is that inpatient psychiatric hospitalization remains the least intensive, least restrictive level of care consistent with the patient's clinical and safety needs. As of Saturday although he stated he "loves" living at [facility] he continues to decline to meet with their representatives, and continues to present with psychotic bel iefs, e.g. reporting that he believes that a person or persons unseen have used some form of a fine needle to surreptitiously inject him with a "chemical" or "drug" that has caused extreme anxiety. He also believes that the end goal of this person or persons is to cause his . He told Dr Dorsey that he needs to have his "benzodiazepine receptors" satisfied with "Valium 10 mg." Today, he is unwilling to participate with this provider. He is unwilling even to answer questions about his physical wellbeing and is irritable. It is not clear if indeed he feels this is legally best, or if he is paranoid about this provider, or if he is angry about the treatment recommendations for IM medication or the decline of benzodiezpenes. WIll not make any adjustments as he did have relative stabiltiy on zyprexa 20mg in the past, seems to tolerate it, and for now is taking it orally. (1) Schizophrenia: 02/25 - Continue home medication regimen - as refusing offerings of his antipsychotic, will likely require olanzapine IM (or alternative agent) over objection, given clear evidence of paranoia and delusional thought process - previously stabilized on this medication - Pt agreeable to taking all other medications, with exception of antipsychotic as mentioned above - Admitted to a locked inpatient behavioral health unit, on q15 minute safety checks - Encourage medication initiation/adjustments as indicated - Encourage participation in group and recreational therapies - Gather collateral information from outpatient providers and [facility] staff - Suggest family meeting to involve outpatient supports in safety planning - Reschedule appropriate aftercare appointments 02/26 -Patient indicates willingness to sign a release for the [facility], will get collateral from their staff. -File for 303 involuntary commitment to be held tomorrow. -Recommend medications over objection, with an IM Zyprexa backup for refusal of oral medication. Involve outpatient treatment team to discuss ways to improve stability and compliance; consider long-acting injectable antipsychotic. -Order fasting labs for monitoring on an atypical antipsychotic once patient is more cooperative. 02/27 -The patient was retrained at his involuntary commitment hearing (303) this morning. -He has continuously and consistently refused psychiatric medications to date. However, today, when I explained that that a option that might become necessary in his case is medication over objection, and an intramuscular form, the patient said that he understood and that he would try medications that I prescribe. His initial preference would be olanzapine, but because olanzapine is not available in a long acting depot form, we would first like to try ar ipiprazole. He indicates that he is taken aripiprazole in the past and has been able to tolerate it, although he does not believe that it has been particularly helpful. -A trial dose of aripiprazole 15 mg by mouth, as a one-time dose, has been ordered and he assessed for efficacy. 02/28 -Appears to be tolerating initiation of Abilify so far. Remains delusional, paranoid. May consider further titration tomorrow -Aricept discontinued at patient's request on 02/27/2019. The medication has not been demonstrated to be efficacious for cognitive impairment associated with long-standing schizophrenia however we should be vigilant for slowing of mentation following discontinuation. 03/01 Patient fixated and irrational regarding access to clothing item as above today. Hospital environment becoming incorporated and delusions. Consider possibility that the aripiprazole is contributing to activation. We will increase to 20 mg tomorrow and also start Risperdal 1 mg p.o. twice daily as as needed. 03/02 - Continue with aripiprazole at 20mg daily, consider need for further titration - if tolerating and effective, eventual plan will be for conversion to Abilify Maintena - Pt has not yet utilized risperidone 03/03 - Increase aripiprazole to 25mg (equivalent to 30mg pill) and change to liquid formulation to decrease risk of cheeking/nonadherence, as patient does not believe he needs medication and had been noncompliant prior to hospitalization. - Fasting glucose and lipid profile ordered for tomorrow for monitoring on an atypical antipsychotic. - Private room due to psychosis, agitation, and inappropriate disrobing/sexual behavior. - Meeting with [facility] and [facility] staff when patient able to tolerate. 03/04 - Continue aripiprazole 25mg liquid (30mg pill equivalent) and continue to observe for improvement in thought process/content - consider conversion to Maintena if effective, versus trial of another agent if improvement remains limited - Fasting labs reviewed - all values WNL - Continue medically necessary private room - Request meeting with [facility] staff, in order to obtain details about patient's proximity to baseline 03/05 -Patient refusing liquid aripiprazole, but agrees to take the pill: Ordered 30 mg daily. -Schedule meeting with his case reviewer, [facility] and psych rehab staff. Consider involuntary outpatient commitment at the time of discharge. 03/06 -The patient has improved in that he is more reality based at this point. He continues to harbor fixed, systematized delusions, but is generally able to focus on reality based topics. -Although the patient tells me that he does not feel that aripiprazole has been effective, he is able to accept my opinion in the opinion of the staff that he has improved in response to aripiprazole. -The patient's main objection to aripiprazole oral solution is that he does not like the way it tastes, and within this context, he tells us that he is willing to accept Abilify Maintenaand requests that it be injected into his buttock. Abilify Maintena 300 mg IM ordered, and oral Abilify discontinued. We will resume oral Abilify if the patient subsequently changes his mind and refuses the injection. 03/07 resuming abilfiy oral given his refusal of FARAH form of abilify 03/08 is taking abilify po form but refusing abilify maintena form. advise close monitoring for potential of checking given pt's tendency to not want to take medications. 03/09 -The patient is flatly refusing to take aripiprazole in the form of Abilify Maintena. He is also been hesitant to take oral Abilify, but has been doing so. -The patient's lack of cooperation is thought possibly to be related to an un-expressed desire to not be discharged back to the community. He told me today that he left his meeting with his community providers after a few seconds because "just the side of them made me extremely anxious. My pulse elevated to 140." Later, he told me that he was still anxious about it and his pulse was "still around 130." The patient allowed me to take his pulse, and it was approximately 76. At that point he said, "did I say pulse? I meant systolic blood pressure." And when I pointed out that his systolic blood pressure of 130 is not considered to be a particular concern, he said "I mean diastolic." -Our hope had been that the patient would agree to accept a Depo form of medication. He was refusing Haldol Decanoate because of various side effects. Risperidone constant was ruled out as a first-line Depo medication because of the frequency of administration (the patient tends to get into power struggles over medications) and because he says that he is sensitive to "big needles." Invega would be an option, but currently the patient is being so uncooperative that our concern would be that he would cheek the oral tablets that we would have to give him first. Accordingly, the new strategy will be to discontinue Abilify, and resume olanzapine with olanzapine IM over objection if necessary. We will begin the olanzapine Zydis 20 mg at bedtime 03/10 -The patient took the prescribed dose of olanzapine Zydis 20 mg at bedtime last night. Today, he tells me that it "did not help at all." However, staff report that he has been somewhat more agreeable, more pleasant, and less paranoid today. -As he has with other providers, today he told me that I should have given him olanzapine 5 mg "to start", and I explained that he was already on olanzapine 20 mg when he came into the hospital and we know that he is able to tolerate that dose. He tells me that he did, in fact tolerate the dose and is not aware of any side effects, but, somewhat illogically, insisted that the dose was "too high for a starting dose." 03/11 - Continue current medication regimen at this time - olanzapine 20mg daily - Encourage participation in the milieu and in group programming as tolerated 03/12 -Continue current medication regimen. The patient's condition has not yet improved. -The patient does participate in select groups, but often tends to be disruptive. 03/13 -Today, the patient seems to be somewhat more cooperative and less frankly delusional. It was possible to engage in a mostly reality based conversation for 5 or 10 minutes at a time. Also, although he was unhappy with me when I refused to provide him with a dose of Valium for anxiety, he was able to remain pleasant and calm at this time, did not storm from the room." 03/14 no change in medication will work on therapeutic alliance given randall is not participating (2) Substance abuse: 02/25 - Pt has reported history of substance abuse, and recommendation has consistently been for avoidance of substances with significant abuse potential. - PDMP queried - most recent prescriptions below - lorazepam 0.5mg #60 tabs for 30 day supply - Dr. Alves - filled 02/12/2019 - alprazolam 0.5mg #90 tabs for 30 day supply - Dr. Lopez - filled 01/16/2019 - temazepam 30mg #30 caps for 30 day supply - Dr. Lopez - filled 01/16/2019 - Will continue lorazepam 0.5mg BID prn on admission, as only medication that is seemingly active - toxicology screen is negative for benzodiazepines, which questions if he has been taking the medication appropriately - Ideally will taper and discontinue the lorazepam, as recommendation remains that substances with abuse potential be avoided 02/26 -The patient's outpatient providers, during a meeting this morning, report that the patient tends to successfully convince physicians to prescribe benzodiazepines for him and that, in the past, he has abused him to the degree that he is practically obtunded. 02/27 -A repeat check of the PDMP reveals that the patient is consistently being prescribed lorazepam 0.5 mg twice daily (number 60/month) by a Dr. Brent Alves. He is also being prescribed alprazolam 0.[address] mg [address] Jeff Lopez, with the most recent previous prescription of alprazolam being on 01/16/[address] Lopez also prescribed temazepam 30 mg capsules #30 on 01/16/2019. According to his residential providers, no temazepam capsules were found among the patient's belongings. His most recent prescripti on for lorazepam 0.5 mg tablets was filled on 02/12/2019. 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 In the past, he reportedly has used clonazepam and temazepam. -I advised the patient that because of his history of misuse of benzodiazepines we would not be prescribing benzodiazepines during his hospital stay. An as needed order for lorazepam has not been used during hospital stay, and I discontinued the order today. 03/02 - Will need to coordinate care with his PCP and outpatient psychiatrist prior to discharge regarding the above. 03/04 - Charge nurse spoke with the above offices regarding concern for continued benzodiazepine prescriptions - Records will be faxed to their offices on discharge, as all benzodiazepines were discontinued during this hospitalization 03/06 -The patient did not request benzodiazepines and did not complain of anxiety today. I suggested to him that perhaps Abilify is also helping with anxiety in his case, and he responded by saying "perhaps." 03/09 -Today, the patient is insisting that what he needs is "benzodiazepines," and explains that the reason he "needs" benzodiazepines is that he has "benzodiazepine receptors," and that he is the only medications that work. He is unable to process warnings about the risks of benzodiazepines in the elderly, including increased risk of falls and mortality. Clearly, the patient is seeking benzodiazepines and has no insight into the associated risks. He also insists that he has never had trouble with benzodiazepines in the past, although there is well-documented of this. 03/10 -Today, the patient repeated his insistence that he needs benzodiazepines and that benzodiazepines are the only medications that work because he has "benzodiazepine receptors." After being told that everyone has central nervous system receptors to which benzodiazepines may attach, he replied, "That may be, but some of people need to have benzodiazepines forearm benzodiazepine receptors. 03/12 -Continues to request Benzodiazepines. 03/13 -Requests Valium for his "benzodiazepines." (3) Hypertension: 02/25 - Continue home dose of clonidine 0.1mg qHS 03/01 Watch mildly elevated blood pressures as patient has been refusing clonidine 03/03 - BP normal past two days, and low today 03/10 -The patient's blood pressure today was 136/73. His pulse was 71 03/14 - elevated BP it is not urgent but will need monitored. Inventory Assets Strengths: -Intelligence. Support of community providers. Well educated. Needs: Resume symptom-stabilizing medication regimen, coordinate care with [facility] Risk Factors Assessment Male: Yes : Yes Do You Have Access To A Gun?: No Health Problems: Yes Mental Health Diagnoses: Yes Substance Use Disorders: Yes Protective Factors Assessment Nondenominational Beliefs: No : No Responsible for Young Children: No Employed: No Stable Relationships: No Supportive Family: No Good Rapport with Provider: No Interval History Identifying Information SCOTT ROBERTO is a 73-year-old M who currently lives at a [facility] in [place]. Pt has a history of schizophrenia and is known to our unit from several previous admissions, most recently in 09/2016. Pt and was admitted on 02/24/19 16:40 on a 302 involuntary commitment for exacerbation of schizophrenia and heightened paranoia resulting in belief he needed to hide in a dumpster to seek refuge from impending bombings. Pt was found by [facility] staff and brought to the ED by police. He is pedning 304 hearing on Saturday03/16/19. Chief Complaint "I don't want to meet with you until Saturday". Review of Systems Sleep Information Total Hours of Sleep: 6 Sleep Comments: up to the bathroom and up for cereal and milk Meal Information Percent Meal Consumed - Breakfast: 100 Percent Meal Consumed - Lunch: 100 Percent Meal Consumed - Dinner: 100 Subjective Subjective Patient was seen & assessed and interval progress reviewed with Treatment Team. He is noted to continue to isolate and not attend unit activities. He is taking medications orally but is irritable per staff. He told staff in the last 24hours that his illness is cyclical and that he is cured from his schizophrenia. Attempted to meet patient this AM approaching him in the dayroom. He states "I don't want to meet with you" when asked when today he would be willing to meet he states "I don't want to meet with you until Saturday." Provider noted that we will need to meet sometime today and gave option of now or alter in the AM. He notes "later" Provider clarified that I would like to meet with him prior to lunch and he stated "okay." Approached the patient again in the mid-morning in the dayroom asking if we could meet. He glances at the provider and states "I am not going to talk to you based on what my operational risk manager said." Provider empathized and noted I was concerned about his wellbeing and would like to check in with him to hear if he has any physical concerns and ask about how he is feeling. He states "no!" Provider asked if I could check on his wellbeing such as physical symptoms. He states "no, I am not going to talk to you leave me alone" and leaves the dayroom. He is noted to be sitting in the activity room later looking out the window he is by himself and he does not appear in distress but also is stoic. Nursing staff alerted of this interaction so they can monitor given he is unwilling to participate further with this provider. Physical Exam Psychiatric Orientation: alert, oriented to person and + guarded Apperance: appropriately dressed and appropriately groomed Eye Contact: + fair eye contact Motor Behavior: steady gait and station (does bounce leg while sitting wtih legs crossed) defensive tone, short clipped tone Affect: + irritable affect and + constricted affect Mood: + irritable mood thoughts ellicited are mimimal and he is unwilling to share with provider other than his intention not to talk to me as noted in subjective Estimated Intelligence: consistent with education level Insight: + impaired insight Judgement: + impaired judgement Vital Signs (Past 24 Hours) Last Vital Signs Temp 36.6 C 03/14/19 06:38 Pulse 78 03/14/19 06:39 Resp 18 03/14/19 06:38 BP 145/78 H 03/14/19 06:39 Pulse Ox 96 02/24/19 08:10 Results & Data Current Inpatient Medications Current Inpatient Medications: Current Inpatient Medications Acetaminophen (Tylenol) 650 mg PO Q4H PRN PRN Reason: Headache or Minor Fever Stop: 03/26/19 16:39 Al Hydrox/Mg Hydrox/Simethicone (Maalox) 30 ml PO Q4H PRN PRN Reason: GI Upset Stop: 03/26/19 16:39 Benztropine Mesylate (Cogentin) 0.5 mg PO BID [facility] Stop: 03/26/19 20:59 Last Admin: 03/14/19 08:31 Dose: 0.5 mg Documented by: Bismuth Subsalicylate (Kaopectate) 15 ml PO PRN PRN PRN Reason: Loose Stool Stop: 03/26/19 16:39 Clonidine HCl (Catapres) 0.1 mg PO HS [facility] Stop: 03/26/19 20:59 Last Admin: 03/13/19 21:11 Dose: 0.1 mg Documented by: Cyanocobalamin (Vitamin B-12) 500 mcg PO DAILY [facility] Stop: 03/27/19 08:59 Last Admin: 03/14/19 08:31 Dose: 500 mcg Documented by: Hydroxyzine HCl (Vistaril) 25 mg PO Q4H PRN PRN Reason: Anxiety Stop: 03/26/19 16:39 Hydroxyzine HCl (Vistaril) 50 mg PO HSZ PRN PRN Reason: Insomnia Stop: 03/26/19 16:39 Magnesium Hydroxide (Milk Of Magnesia) 30 ml PO DAILY PRN PRN Reason: Heartburn Stop: 03/26/19 16:39 Magnesium Oxide (Mag-Ox) 400 mg PO DAILY [facility] Stop: 03/27/19 08:59 Last Admin: 03/14/19 08:31 Dose: 400 mg Documented by: Miscellaneous (Remove Nicoderm Patch) 1 ea N/A HS [facility] Stop: 03/26/19 20:59 Last Admin: 03/13/19 21:11 Dose: Not Given Documented by: Multivitamins (Multivitamin Tab) 1 tab PO DAILY MAG Stop: 03/27/19 08:59 Last Admin: 03/14/19 08:31 Dose: 1 tab Documented by: Nicotine (Nicoderm Cq) 14 mg TD QAM MAG Stop: 03/27/19 08:59 Last Admin: 03/14/19 08:36 Dose: Not Given Documented by: Olanzapine (Zyprexa Zydis Od) 20 mg PO HS MAG Stop: 04/08/19 21:59 Last Admin: 03/13/19 21:12 Dose: 20 mg Documented by: Olanzapine (Zyprexa) 10 mg IM HS PRN PRN Reason: Undecided Stop: 04/08/19 21:59 Pyridoxine HCl (Vitamin B-6) 100 mg PO DAILY MAG Stop: 03/27/19 08:59 Last Admin: 03/14/19 08:31 Dose: 100 mg Documented by: Risperidone (Risperdal M) 1 mg PO BID PRN PRN Reason: psychosis Stop: 03/31/19 10:36 Sodium Chloride (Sage Nasal) 1 - 2 sprays NA PRN PRN PRN Reason: Nasal Dryness/Congestion Stop: 03/26/19 16:39 Mental Health & Subst Abuse Tx Therapist Name of Therapist: Sammy Bonderizer Name of Bonderizer: Shruti Lopez Phone Number for Bonderizer: Case Management Appointment Comment: [phone], [place] [address] Post Discharge Appointments Primary Care Physician Name Of Family Doctor: Dr. Lopez Contact Information Discharge Discharge Address: [address] [place] [id number] CPT Code CPT Code 41475 (1) Schizophrenia Schizophrenia type: paranoid schizophrenia Qualified Code(s): F20.0 - Paranoid schizophrenia (2) Hypertension Hypertension type: essential hypertension Qualified Code(s): I10 - Essential (primary) hypertension
[2019-03-14] MEDS: OLANZAPINE ZYDIS 10 MG ORALLY DIS. TAB PO SCH (20:59)
[2019-03-14] MEDS: cloNIDine HCL 0.1 MG TAB PO SCH (20:59)
[2019-03-15] MEDS: MULTIVITAMIN TAB PO SCH (08:05)
[2019-03-15] MEDS: MAGNESIUM OXIDE 400 MG TAB PO SCH (08:05)
[2019-03-15] MEDS: BENZTROPINE MESYLATE 0.5 MG TAB PO SCH ×2 (08:05→21:13)
[2019-03-15] MEDS: CYANOCOBALAMIN 500 MCG TABLET (VITAMIN B-12) PO SCH (08:06)
[2019-03-15] MEDS: PYRIDOXINE HCL 50 MG TAB PO SCH (08:06)
[2019-03-15] MEDS: NICOTINE 14 MG/24 HR PATCH TD SCH (08:06)
--- NOTE | 2019-03-15 11:20 | Psychiatric Progress Note ---
Date of Service March 15, 2019 Impression / Recommendations Impression 73-year-old male with schizophrenia who lives at the [facility] and was admitted involuntarily with delusions, hallucinations, irritability and erratic behavior on 02/24/19 after rapidly decompensating 1-2 weeks after he became noncompliant with his prescribed olanzapine. He was found in a dumpster, floridly delusional, and was combative with [facility] staff. He refused resumption of olanzapine, but ultimately agreed to take aripiprazole. It had initially appeared as if he was responding favorably, although not completely, to the addition of aripiprazole. Because of the patient's long history of dangerous behaviors in the community associated with nonadherence with psychiatric medications, the patient's behavioral health unit treatment team as well as his outpatient providers find that the best course of action in his case is the use of a Depo antipsychotic medication. He initially agreed to Abilify Maintena. However, and although per MD staff there is some thought that this agreement may have been coincidental, subsequent to his being given the feedback that we all felt that he was improving and we could begin moving more quickly towards discharge back to his residential facility, the patient precipitously refused Abilify Maintena, and subsequently became much more oppositional and hostile towards the hospital providers. This pattern of oppositional behavior is fairly typical for Mr. Roberto, but staff has considered the possibility that he is at some level deciding to be oppositional in order to avoid leaving the hospital. Regardless, given his history of dangerous behaviors during periods of nonadherence with medications in the community, our finding is that inpatient psychiatric hospitalization remains the least intensive, least restrictive level of care consistent with the patient's clinical and safety needs. As of Saturday although he stated he "loves" living at [facility] he continues to decline to meet with their representatives, and continues to present with psychotic bel iefs, e.g. reporting that he believes that a person or persons unseen have used some form of a fine needle to surreptitiously inject him with a "chemical" or "drug" that has caused extreme anxiety. He also believes that the end goal of this person or persons is to cause his . He told Dr Dorsey that he needs to have his "benzodiazepine receptors" satisfied with "Valium 10 mg." Both Saturday and Saturday, he is unwilling to participate with this provider. He is unwilling even to answer questions about his physical wellbeing and is irritable. It is not clear if indeed he feels this is legally best, or if he is paranoid about this provider, or if he is angry about the treatment recommendations for IM medication or the decline of benzodiezpenes. Will not make any adjustments as he did have relative stability on zyprexa 20mg in the past, seems to tolerate it, and for now is taking it orally. (1) Schizophrenia: 02/25 - Continue home medication regimen - as refusing offerings of his antipsychotic, will likely require olanzapine IM (or alternative agent) over objection, given clear evidence of paranoia and delusional thought process - previously stabilized on this medication - Pt agreeable to taking all other medications, with exception of antipsychotic as mentioned above - Admitted to a locked inpatient behavioral health unit, on q15 minute safety checks - Encourage medication initiation/adjustments as indicated - Encourage participation in group and recreational therapies - Gather collateral information from outpatient providers and [facility] staff - Suggest family meeting to involve outpatient supports in safety planning - Reschedule appropriate aftercare appointments 02/26 -Patient indicates willingness to sign a release for the [facility], will get collateral from their staff. -File for 303 involuntary commitment to be held tomorrow. -Recommend medications over objection, with an IM Zyprexa backup for refusal of oral medication. Involve outpatient treatment team to discuss ways to improve stability and compliance; consider long-acting injectable antipsychotic. -Order fasting labs for monitoring on an atypical antipsychotic once patient is more cooperative. 02/27 -The patient was retrained at his involuntary commitment hearing (303) this morning. -He has continuously and consistently refused psychiatric medications to date. However, today, when I explained that that a option that might become necessary in his case is medication over objection, and an intramuscular form, the patient said that he understood and that he would try medications that I prescribe. His initial preference would be olanzapine, but because olanzapine is not available in a long acting depot form, we would first like to try aripiprazole. He indicates that he is taken aripiprazole in the past and has been able to tolerate it, although he does not believe that it has been particularly helpful. -A trial dose of aripiprazole 15 mg by mouth, as a one-time dose, has been ordered and he assessed for efficacy. 02/28 -Appears to be tolerating initiation of Abilify so far. Remains delusional, paranoid. May consider further titration tomorrow -Aricept discontinued at patient's request on 02/27/2019. The medication has not been demonstrated to be efficacious for cognitive impairment associated with long-standing schizophrenia however we should be vigilant for slowing of mentation following discontinuation. 03/01 Patient fixated and irrational regarding access to clothing item as above today. Hospital environment becoming incorporated and delusions. Consider possibility that the aripiprazole is contributing to activation. We will increase to 20 mg tomorrow and also start Risperdal 1 mg p.o. twice daily as as needed. 03/02 - Continue with aripiprazole at 20mg daily, consider need for further titration - if tolerating and effective, eventual plan will be for conversion to Abilify Maintena - Pt has not yet utilized risperidone 03/03 - Increase aripiprazole to 25mg (equivalent to 30mg pill) and change to liquid formulation to decrease risk of cheeking/nonadherence, as patient does not believe he needs medication and had been noncompliant prior to hospitalization. - Fasting glucose and lipid profile ordered for tomorrow for monitoring on an atypical antipsychotic. - Private room due to psychosis, agitation, and inappropriate disrobing/sexual behavior. - Meeting with [facility] and [facility] staff when patient able to tolerate. 03/04 - Continue aripiprazole 25mg liquid (30mg pill equivalent) and continue to observe for improvement in thought process/content - consider conversion to Maintena if effective, versus trial of another agent if improvement remains limited - Fasting labs reviewed - all values WNL - Continue medically necessary private room - Request meeting with [facility] staff, in order to obtain details about patient's proximity to baseline 03/05 -Patient refusing liquid aripiprazole, but agrees to take the pill: Ordered 30 mg daily. -Schedule meeting with his case management manager, [facility] and psych rehab staff. Consider involuntary outpatient commitment at the time of discharge. 03/06 -The patient has improved in that he is more reality based at this point. He continues to harbor fixed, systematized delusions, but is generally able to focus on reality based topics. -Although the patient tells me that he does not feel that aripiprazole has been effective, he is able to accept my opinion in the opinion of the staff that he has improved in response to aripiprazole. -The patient's main objection to aripiprazole oral solution is that he does not like the way it tastes, and within this context, he tells us that he is willing to accept Abilify Maintenaand requests that it be injected into his buttock. Abilify Maintena 300 mg IM ordered, and oral Abilify discontinued. We will resume oral Abilify if the patient subsequently changes his mind and refuses the injection. 03/07 resuming abilfiy oral given his refusal of FARAH form of abilify 03/08 is taking abilify po form but refusing abilify maintena form. advise close monitoring for potential of checking given pt's tendency to not want to take medications. 03/09 -The patient is flatly refusing to take aripiprazole in the form of Abilify Maintena. He is also been hesitant to take oral Abilify, but has been doing so. -The patient's lack of cooperation is thought possibly to be related to an un-expressed desire to not be discharged back to the community. He told me today that he left his meeting with his community providers after a few seconds because "just the side of them made me extremely anxious. My pulse elevated to 140." Later, he told me that he was still anxious about it and his pulse was "still around 130." The patient allowed me to take his pulse, and it was approximately 76. At that point he said, "did I say pulse? I meant systolic blood pressure." And when I pointed out that his systolic blood pressure of 130 is not considered to be a particular concern, he said "I mean diastolic." -Our hope had been that the patient would agree to accept a Depo form of medication. He was refusing Haldol Decanoate because of various side effects. Risperidone constant was ruled out as a first-line Depo medication because of the frequency of administration (the patient tends to get into power struggles over medications) and because he says that he is sensitive to "big needles." Invega would be an option, but currently the patient is being so uncooperative that our concern would be that he would cheek the oral tablets that we would have to give him first. Accordingly, the new strategy will be to discontinue Abilify, and resume olanzapine with olanzapine IM over objection if necessary. We will begin the olanzapine Zydis 20 mg at bedtime 03/10 -The patient took the prescribed dose of olanzapine Zydis 20 mg at bedtime last night. Today, he tells me that it "did not help at all." However, staff report that he has been somewhat more agreeable, more pleasant, and less paranoid today. -As he has with other providers, today he told me that I should have given him olanzapine 5 mg "to start", and I explained that he was already on olanzapine 20 mg when he came into the hospital and we know that he is able to tolerate that dose. He tells me that he did, in fact tolerate the dose and is not aware of any side effects, but, somewhat illogically, insisted that the dose was "too high for a starting dose." 03/11 - Continue current medication regimen at this time - olanzapine 20mg daily - Encourage participation in the milieu and in group programming as tolerated 03/12 -Continue current medication regimen. The patient's condition has not yet improved. -The patient does participate in select groups, but often tends to be disruptive. 03/13 -Today, the patient seems to be somewhat more cooperative and less frankly delusional. It was possible to engage in a mostly reality based conversation for 5 or 10 minutes at a time. Also, although he was unhappy with me when I refused to provide him with a dose of Valium for anxiety, he was able to remain pleasant and calm at this time, did not storm from the room." 03/14 and 03/15 no change in medication will work on therapeutic alliance given randall is not participating (2) Substance abuse: 02/25 - Pt has reported history of substance abuse, and recommendation has consistently been for avoidance of substances with significant abuse potential. - PDMP queried - most recent prescriptions below - lorazepam 0.5mg #60 tabs for 30 day supply - Dr. Alves - filled 02/12/2019 - alprazolam 0.5mg #90 tabs for 30 day supply - Dr. Lopez - filled 01/16/2019 - temazepam 30mg #30 caps for 30 day supply - Dr. Lopez - filled 01/16/2019 - Will continue lorazepam 0.5mg BID prn on admission, as only medication that is seemingly active - toxicology screen is negative for benzodiazepines, which questions if he has been taking the medication appropriately - Ideally will taper and discontinue the lorazepam, as recommendation remains that substances with abuse potential be avoided 02/26 -The patient's outpatient providers, during a meeting this morning, report that the patient tends to successfully convince physicians to prescribe benzodiazepines for him and that, in the past, he has abused him to the degree that he is practically obtunded. 02/27 -A repeat check of the PDMP reveals that the patient is consistently being prescribed lorazepam 0.5 mg twice daily (number 60/month) by a Dr. Brent Alves. He is also being prescribed alprazolam 0.[address] mg [address] Jeff Lopez, with the most recent previous prescription of alprazolam being on 01/16/[address] Lopez also prescribed temazepam 30 mg capsules #30 on 01/16/2019. According to his residential providers, no temazepam capsules were found among the patient's belongings. His most recent prescription for lorazepam 0.5 mg tablets was filled on 02/12/2019. 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 In the past, he reportedly has used clonazepam and temazepam. -I advised the patient that because of his history of misuse of benzodiazepines we would not be prescribing benzodiazepines during his hospital stay. An as needed order for lorazepam has not been used during hospital stay, and I discontinued the order today. 03/02 - Will need to coordinate care with his PCP and outpatient psychiatrist prior to discharge regarding the above. 03/04 - Charge nurse spoke with the above offices regarding concern for continued benzodiazepine prescriptions - Records will be faxed to their offices on discharge, as all benzodiazepines were discontinued during this hospitalization 03/06 -The patient did not request benzodiazepines and did not complain of anxiety today. I suggested to him that perhaps Abilify is also helping with anxiety in his case, and he responded by saying "perhaps." 03/09 -Today, the patient is insisting that what he needs is "benzodiazepines," and explains that the reason he "needs" benzodiazepines is that he has "benzodiazepine receptors," and that he is the only medications that work. He is unable to process warnings about the risks of benzodiazepines in the elderly, including increased risk of falls and mortality. Clearly, the patient is seeking benzodiazepines and has no insight into the associated risks. He also insists that he has never had trouble with benzodiazepines in the past, although there is well-documented of this. 03/10 -Today, the patient repeated his insistence that he needs benzodiazepines and that benzodiazepines are the only medications that work because he has "benzodiazepine receptors." After being told that everyone has central nervous system receptors to which benzodiazepines may attach, he replied, "That may be, but some of people need to have benzodiazepines forearm benzodiazepine receptors. 03/12 -Continues to request Benzodiazepines. 03/13 -Requests Valium for his "benzodiazepines." (3) Hypertension: 02/25 - Continue home dose of clonidine 0.1mg qHS 03/01 Watch mildly elevated blood pressures as patient has been refusing clonidine 03/03 - BP normal past two days, and low today 03/10 -The patient's blood pressure today was 136/73. His pulse was 71 03/14 - elevated BP it is not urgent but will need monitored. 03/15 - BP WNL Inventory Assets Strengths: -Intelligence. Support of community providers. Well educated. Needs: Resume symptom-stabilizing medication regimen, coordinate care with [facility] Risk Factors Assessment Male: Yes : Yes Do You Have Access To A Gun?: No Health Problems: Yes Mental Health Diagnoses: Yes Substance Use Disorders: Yes Protective Factors Assessment Judaism Beliefs: No : No Responsible for Young Children: No Employed: No Stable Relationships: No Supportive Family: No Good Rapport with Provider: No Interval History Identifying Information SCOTT ROBERTO is a 73-year-old M who currently lives at a [facility] in [place]. Pt has a history of schizophrenia and is known to our unit from several previous admissions, most recently in 09/2016. Pt and was admitted on 02/24/19 16:40 on a 302 involuntary commitment for exacerbation of schizophrenia and heightened paranoia resulting in belief he needed to hide in a dumpster to seek refuge from impending bombings. Pt was found by [facility] staff and brought to the ED by police. He is pending 304 hearing on Saturday03/16/19 at 10AM. Chief Complaint "I don't want to talk to you....leave me alone". Review of Systems Sleep Information Total Hours of Sleep: 8 Sleep Comments: up to the bathroom and up for cereal and milk Meal Information Percent Meal Consumed - Breakfast: 75 Percent Meal Consumed - Lunch: 100 Percent Meal Consumed - Dinner: 100 Nutrition Comment: per meal record Subjective Subjective Patient was seen & assessed and interval progress reviewed with Treatment Team Patient continues to get dressed and showered and comes in and out of his room and eats, but does not engage other patients or staff. He is taking his medications. THe patient is in his room this AM standing dressed looking out of the window when provider arrives. "I won't talk to you until my hearing on Saturday" when provider persists he the patient states 'I don't want to talk to you" When provider states I would like to make sure that he is not having any problems or pain he states "go away." He is observed on the unit to be fluid in his walking stable unassisted and attends to his ADLs, he watches TV at times and walks at times and looks out the window at times, does not appear physically restless no s/sx of EPS by observation. He does not appear to be in acute distress, but is irritable and off put when approached and quickly escalates to raised voice with any persistance by providerl Physical Exam Psychiatric Orientation: alert and + guarded; + uncooperative Apperance: appropriately dressed, appropriately groomed and appeared stated age Eye Contact: + fair eye contact Motor Behavior: steady gait and station and no abnormal motor movements Speech: normal rate/rhythm/volume of speech (quick to irritable tone if engaged by this provider); no pressured speech Affect: + blunted affect, + angry affect and + constricted affect Mood: + irritable mood and + angry mood; no depressed mood and no anxious mood Thought Process: goal directed thought process (about "I cannot talk to you before the hearing on Saturday"), + perseveration and + concrete thought process; + thought association not intact Thought Content: + preoccupation and + paranoid (seems to interpret MD as to be avoided as sign of paranoia ) Cognition: attention grossly intact and language grossly intact Estimated Intelligence: consistent with education level and + above average estimated intelligence Insight: + severely impaired insight Judgement: + severely impaired judgement Vital Signs (Past 24 Hours) Last Vital Signs Temp 36.7 C 07/28/19 06:00 Pulse 87 03/15/19 06:28 Resp 16 03/15/19 06:00 BP 125/60 03/15/19 06:28 Pulse Ox 96 02/24/19 08:10 Results & Data Current Inpatient Medications Current Inpatient Medications: Current Inpatient Medications Acetaminophen (Tylenol) 650 mg PO Q4H PRN PRN Reason: Headache or Minor Fever Stop: 03/26/19 16:39 Al Hydrox/Mg Hydrox/Simethicone (Maalox) 30 ml PO Q4H PRN PRN Reason: GI Upset Stop: 03/26/19 16:39 Benztropine Mesylate (Cogentin) 0.5 mg PO BID MAG Stop: 03/26/19 20:59 Last Admin: 03/15/19 08:05 Dose: 0.5 mg Documented by: Bismuth Subsalicylate (Kaopectate) 15 ml PO PRN PRN PRN Reason: Loose Stool Stop: 03/26/19 16:39 Clonidine HCl (Catapres) 0.1 mg PO HS MAG Stop: 03/26/19 20:59 Last Admin: 03/14/19 20:59 Dose: 0.1 mg Documented by: Cyanocobalamin (Vitamin B-12) 500 mcg PO DAILY MAG Stop: 03/27/19 08:59 Last Admin: 03/15/19 08:06 Dose: 500 mcg Documented by: Hydroxyzine HCl (Vistaril) 25 mg PO Q4H PRN PRN Reason: Anxiety Stop: 03/26/19 16:39 Hydroxyzine HCl (Vistaril) 50 mg PO HSZ PRN PRN Reason: Insomnia Stop: 03/26/19 16:39 Magnesium Hydroxide (Milk Of Magnesia) 30 ml PO DAILY PRN PRN Reason: Heartburn Stop: 03/26/19 16:39 Magnesium Oxide (Mag-Ox) 400 mg PO DAILY MAG Stop: 03/27/19 08:59 Last Admin: 03/15/19 08:05 Dose: 400 mg Documented by: Miscellaneous (Remove Nicoderm Patch) 1 ea N/A HS MAG Stop: 03/26/19 20:59 Last Admin: 03/14/19 21:00 Dose: Not Given Documented by: Multivitamins (Multivitamin Tab) 1 tab PO DAILY MAG Stop: 03/27/19 08:59 Last Admin: 03/15/19 08:05 Dose: 1 tab Documented by: Nicotine (Nicoderm Cq) 14 mg TD QAM MAG Stop: 03/27/19 08:59 Last Admin: 03/15/19 08:06 Dose: Not Given Documented by: Olanzapine (Zyprexa Zydis Od) 20 mg PO HS MAG Stop: 04/08/19 21:59 Last Admin: 03/14/19 20:59 Dose: 20 mg Documented by: Olanzapine (Zyprexa) 10 mg IM HS PRN PRN Reason: Undecided Stop: 04/08/19 21:59 Pyridoxine HCl (Vitamin B-6) 100 mg PO DAILY MAG Stop: 03/27/19 08:59 Last Admin: 03/15/19 08:06 Dose: 100 mg Documented by: Risperidone (Risperdal M) 1 mg PO BID PRN PRN Reason: psychosis Stop: 03/31/19 10:36 Sodium Chloride (Wise Nasal) 1 - 2 sprays NA PRN PRN PRN Reason: Nasal Dryness/Congestion Stop: 03/26/19 16:39 Mental Health & Subst Abuse Tx Therapist Name of Therapist: Sammy Dramatic Coach Name of Dramatic Coach: Shruti Lopez Phone Number for Dramatic Coach: Case Management Appointment Comment: [phone], [place] [address] Post Discharge Appointments Primary Care Physician Name Of Family Doctor: Dr. Lopez Contact Information Discharge Discharge Address: [address] [place] [address], [place] [address] CPT Code CPT Code 61325 (1) Schizophrenia Schizophrenia type: paranoid schizophrenia Qualified Code(s): F20.0 - Paranoid schizophrenia (2) Hypertension Hypertension type: essential hypertension Qualified Code(s): I10 - Essential (primary) hypertension
[2019-03-15] MEDS: cloNIDine HCL 0.1 MG TAB PO SCH (21:13)
[2019-03-15] MEDS: OLANZAPINE ZYDIS 10 MG ORALLY DIS. TAB PO SCH (21:13)
--- NOTE | 2019-03-16 08:17 | Psychiatric Progress Note ---
Date of Service March 16, 2019 Impression / Recommendations Impression 73-year-old male with schizophrenia who lives at the [facility] and was admitted involuntarily with delusions, hallucinations, irritability and erratic behavior on 02/24/19 after rapidly decompensating 1-2 weeks after he became noncompliant with his antipsychotic. He was found in a dumpster, floridly delusional, and was combative with [facility] staff. He refused resumption of olanzapine, but ultimately agreed to take aripiprazole. It initially appeared that he was responding favorably, although not completely, to the addition of aripiprazole. Because of the patient's long history of dangerous behaviors in the community associated with nonadherence with psychiatric medications, the patient's behavioral health unit treatment team and his outpatient providers recommended a depo antipsychotic medication, and he initially agreed to Abilify Maintena; however, he then refused it when staff attempted to administer the injection, and subsequently became much more oppositional and hostile towards the hospital providers. This pattern of oppositional behavior is fairly typical for Mr. Roberto, but the treatment team has considered the possibility that he is at some level deciding to be oppositional in order to avoid leaving the hospital. Regardless, given his history of dangerous behaviors during periods of nonadherence with medications in the community, our finding is that inpatient psychiatric hospitalization remains the least intensive, least restrictive level of care consistent with the patient's clinical and safety needs. Although he stated he "loves" living at the [facility] and hopes to return there, he continues to decline to meet with their representatives, and remains psychotic with prominent delusions, for example that a person or persons unseen have used some form of a fine needle to surreptitiously inject him with a "chemical" or "drug" that has caused extreme anxiety, with an end goal to kill him. He told Dr Dorsey that he needs to have his "benzodiazepine receptors" satisfied with "Valium 10 mg." He refused to meet with a psychiatrist for the past 3 days, and is on a 304 involuntary commitment as of today. (1) Schizophrenia: 02/25 - Continue home medication regimen - as refusing offerings of his antipsychotic, will likely require olanzapine IM (or alternative agent) over objection, given clear evidence of paranoia and delusional thought process - previously stabilized on this medication - Pt agreeable to taking all other medications, with exception of antipsychotic as mentioned above - Admitted to a locked inpatient behavioral health unit, on q15 minute safety checks - Encourage medication initiation/adjustments as indicated - Encourage participation in group and recreational therapies - Gather collateral information from outpatient providers and [facility] staff - Suggest family meeting to involve outpatient supports in safety planning - Reschedule appropriate aftercare appointments 02/26 -Patient indicates willingness to sign a release for the [facility], will get collateral from their staff. -File for 303 involuntary commitment to be held tomorrow. -Recommend medications over objection, with an IM Zyprexa backup for refusal of oral medication. Involve outpatient treatment team to discuss ways to improve stability and compliance; consider long-acting injectable antipsychotic. -Order fasting labs for monitoring on an atypical antipsychotic once patient is more cooperative. 02/27 -The patient was retrained at his involuntary commitment hearing (303) this morning. -He has continuously and consistently refused psychiatric medications to date. However, today, when I explained that that a option that might become necessary in his case is medication over objection, and an intramuscular form, the patient said that he understood and that he would try medications that I prescribe. His initial preference would be olanzapine, but because olanzapine is not available in a long acting depot form, we would first like to try aripiprazole. He indicates that he is taken aripiprazole in the past and has been able to tolerate it, although he does not believe that it has been particularly helpful. -A trial dose of aripiprazole 15 mg by mouth, as a one-time dose, has been ordered and he assessed for efficacy. 02/28 -Appears to be tolerating initiation of Abilify so far. Remains delusional, paranoid. May consider further titration tomorrow -Aricept discontinued at patient's request on 02/27/2019. The medication has not been demonstrated to be efficacious for cognitive impairment associated with long-standing schizophrenia however we should be vigilant for slowing of mentation following discontinuation. 03/01 Patient fixated and irrational regarding access to clothing item as above today. Hospital environment becoming incorporated and delusions. Consider possibility that the aripiprazole is contributing to activation. We will increase to 20 mg tomorrow and also start Risperdal 1 mg p.o. twice daily as as needed. 03/02 - Continue with aripiprazole at 20mg daily, consider need for further titration - if tolerating and effective, eventual plan will be for conversion to Abilify Maintena - Pt has not yet utilized risperidone 03/03 - Increase aripiprazole to 25mg (equivalent to 30mg pill) and change to liquid formulation to decrease risk of cheeking/nonadherence, as patient does not believe he needs medication and had been noncompliant prior to hospitalization. - Fasting glucose and lipid profile ordered for tomorrow for monitoring on an atypical antipsychotic. - Private room due to psychosis, agitation, and inappropriate disrobing/sexual behavior. - Meeting with [facility] and [facility] staff when patient able to tolerate. 03/04 - Continue aripiprazole 25mg liquid (30mg pill equivalent) and continue to observe for improvement in thought process/content - consider conversion to Maintena if effective, versus trial of another agent if improvement remains limited - Fasting labs reviewed - all values WNL - Continue medically necessary private room - Request meeting with [facility] staff, in order to obtain details about patient's proximity to baseline 03/05 -Patient refusing liquid aripiprazole, but agrees to take the pill: Ordered 30 mg daily. -Schedule meeting with his case hardener, [facility] and psych rehab staff. Consider involuntary outpatient commitment at the time of discharge. 03/06 -The patient has improved in that he is more reality based at this point. He continues to harbor fixed, systematized delusions, but is generally able to focus on reality based topics. -Although the patient tells me that he does not feel that aripiprazole has been effective, he is able to accept my opinion in the opinion of the staff that he has improved in response to aripiprazole. -The patient's main objection to aripiprazole oral solution is that he does not like the way it tastes, and within this context, he tells us that he is willing to accept Abilify Maintenaand requests that it be injected into his buttock. Abilify Maintena 300 mg IM ordered, and oral Abilify discontinued. We will resume oral Abilify if the patient subsequently changes his mind and refuses the injection. 03/07 resuming abilfiy oral given his refusal of FARAH form of abilify 03/08 is taking abilify po form but refusing abilify maintena form. advise close monitoring for potential of checking given pt's tendency to not want to take medications. 03/09 -The patient is flatly refusing to take aripiprazole in the form of Abilify Maintena. He is also been hesitant to take oral Abilify, but has been doing so. -The patient's lack of cooperation is thought possibly to be related to an un-expressed desire to not be discharged back to the community. He told me today that he left his meeting with his community providers after a few seconds because "just the side of them made me extremely anxious. My pulse elevated to 140." Later, he told me that he was still anxious about it and his pulse was "still around 130." The patient allowed me to take his pulse, and it was approximately 76. At that point he said, "did I say pulse? I meant systolic blood pressure." And when I pointed out that his systolic blood pressure of 130 is not considered to be a particular concern, he said "I mean diastolic." -Our hope had been that the patient would agree to accept a Depo form of medication. He was refusing Haldol Decanoate because of various side effects. Risperidone constant was ruled out as a first-line Depo medication because of the frequency of administration (the patient tends to get into power struggles over medications) and because he says that he is sensitive to "big needles." Invega would be an option, but currently the patient is being so uncooperative that our concern would be that he would cheek the oral tablets that we would have to give him first. Accordingly, the new strategy will be to discontinue Abilify, and resume olanzapine with olanzapine IM over objection if necessary. We will begin the olanzapine Zydis 20 mg at bedtime 03/10 -The patient took the prescribed dose of olanzapine Zydis 20 mg at bedtime last night. Today, he tells me that it "did not help at all." However, staff report that he has been somewhat more agreeable, more pleasant, and less paranoid today. -As he has with other providers, today he told me that I should have given him olanzapine 5 mg "to start", and I explained that he was already on olanzapine 20 mg when he came into the hospital and we know that he is able to tolerate that dose. He tells me that he did, in fact tolerate the dose and is not aware of any side effects, but, somewhat illogically, insisted that the dose was "too high for a starting dose." 03/11 - Continue current medication regimen at this time - olanzapine 20mg daily - Encourage participation in the milieu and in group programming as tolerated 03/12 -Continue current medication regimen. The patient's condition has not yet improved. -The patient does participate in select groups, but often tends to be disruptive. 03/13 -Today, the patient seems to be somewhat more cooperative and less frankly delusional. It was possible to engage in a mostly reality based conversation for 5 or 10 minutes at a time. Also, although he was unhappy with me when I refused to provide him with a dose of Valium for anxiety, he was able to remain pleasant and calm at this time, did not storm from the room." 03/14 and 03/15 -no change in medication will work on therapeutic alliance given patient is not participating 03/16 -304 involuntary commitment granted. -Patient remains completely uncooperative with treatment, refused his Zyprexa Zydis last evening, but then ultimately took it before he received the injection. I have a high suspicion for cheeking of antipsychotic medication, and we will continue to be vigilant with mouth checks, and work towards a long- acting injectable. (2) Substance abuse: 02/25 - Pt has reported history of substance abuse, and recommendation has consistently been for avoidance of substances with significant abuse potential. - PDMP queried - most recent prescriptions below - lorazepam 0.5mg #60 tabs for 30 day supply - Dr. Alves - filled 02/12/2019 - alprazolam 0.5mg #90 tabs for 30 day supply - Dr. Lopez - filled 01/16/2019 - temazepam 30mg #30 caps for 30 day supply - Dr. Lopez - filled 01/16/2019 - Will continue lorazepam 0.5mg BID prn on admission, as only medication that is seemingly active - toxicology screen is negative for benzodiazepines, which questions if he has been taking the medication appropriately - Ideally will taper and discontinue the lorazepam, as recommendation remains that substances with abuse potential be avoided 02/26 -The patient's outpatient providers, during a meeting this morning, report that the patient tends to successfully convince physicians to prescribe benzodiazepines for him and that, in the past, he has abused him to the degree that he is practically obtunded. 02/27 -A repeat check of the PDMP reveals that the patient is consistently being prescribed lorazepam 0.5 mg twice daily (number 60/month) by a Dr. Brent Alves. He is also being prescribed alprazolam 0.[address] mg [address] Jeff Lopez, with the most recent previous prescription of alprazolam being on 01/16/[address] Lopez also prescribed temazepam 30 mg capsules #30 on 01/16/2019. According to his residential providers, no temazepam capsules were found among the patient's belongings. His most recent prescription for lorazepam 0.5 mg tablets was filled on 02/12/2019. 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 In the past, he reportedly has used clonazepam and temazepam. -I advised the patient that because of his history of misuse of benzodiazepines we would not be prescribing benzodiazepines during his hospital stay. An as needed order for lorazepam has not been used during hospital stay, and I discontinued the order today. 03/02 - Will need to coordinate care with his PCP and outpatient psychiatrist prior to discharge regarding the above. 03/04 - Charge nurse spoke with the above offices regarding concern for continued benzodiazepine prescriptions - Records will be faxed to their offices on discharge, as all benzodiazepines were discontinued during this hospitalization 03/06 -The patient did not request benzodiazepines and did not complain of anxiety today. I suggested to him that perhaps Abilify is also helping with anxiety in his case, and he responded by saying "perhaps." 03/09 -Today, the patient is insisting that what he needs is "benzodiazepines," and explains that the reason he "needs" benzodiazepines is that he has "benzodiazepine receptors," and that he is the only medications that work. He is unable to process warnings about the risks of benzodiazepines in the elderly, including increased risk of falls and mortality. Clearly, the patient is seeking benzodiazepines and has no insight into the associated risks. He also insists that he has never had trouble with benzodiazepines in the past, although there is well-documented of this. 03/10 -Today, the patient repeated his insistence that he needs benzodiazepines and that benzodiazepines are the only medications that work because he has "benzodiazepine receptors." After being told that everyone has central nervous system receptors to which benzodiazepines may attach, he replied, "That may be, but some of people need to have benzodiazepines forearm benzodiazepine receptors. 03/12 -Continues to request Benzodiazepines. 03/13 -Requests Valium for his "benzodiazepines." (3) Hypertension: 02/25 - Continue home dose of clonidine 0.1mg qHS 03/01 Watch mildly elevated blood pressures as patient has been refusing clonidine 03/03 - BP normal past two days, and low today 03/10 -The patient's blood pressure today was 136/73. His pulse was 71 03/14 - elevated BP it is not urgent but will need monitored. 03/15 - BP WNL Inventory Assets Strengths: -Intelligence. Support of community providers. Well educated. Needs: Resume symptom-stabilizing medication regimen, coordinate care with [facility] Risk Factors Assessment Male: Yes : Yes Do You Have Access To A Gun?: No Health Problems: Yes Mental Health Diagnoses: Yes Substance Use Disorders: Yes Protective Factors Assessment Christianity Beliefs: No : No Responsible for Young Children: No Employed: No Stable Relationships: No Supportive Family: No Good Rapport with Provider: No Interval History Identifying Information SCOTT ROBERTO is a 73-year-old M who currently lives at a [facility] in [place]. Pt has a history of schizophrenia and is known to our unit from several previous admissions, most recently in 09/2016. Pt and was admitted on 02/24/19 16:40 on a 302 involuntary commitment for exacerbation of schizophrenia and heightened paranoia resulting in belief he needed to hide in a dumpster to seek refuge from impending bombings. Pt was found by [facility] staff and brought to the ED by police. He is on a 304 involuntary commitment as of 03/16/19. Chief Complaint "I don't want to talk to you, get out!" Review of Systems Notes Patient uncooperative with attempts to perform review of systems. Sleep Information Total Hours of Sleep: 6.5 Sleep Comments: pt on q-15 minute checks Meal Information Percent Meal Consumed - Breakfast: 75 Percent Meal Consumed - Lunch: 75 Percent Meal Consumed - Dinner: 100 Nutrition Comment: per meal record Subjective Subjective Patient was seen & assessed and interval progress reviewed with Treatment Team. Staff report he refused to meet with a psychiatrist over the weekend, and refused groups in the last week. He isolated in his room much of the time, did not interact with staff or peers, and perseverated on his 304 hearing. He told staff "they are going to kill me in [place]." He has been irritable when staff attempt to engage him, and often does not respond to others attempts to talk with him. He refused his scheduled Zyprexa Zydis last evening, was verbally aggressive, and demanded that the nurse leave him alone and get out of his room. He refused to return the medication to staff or to take it, and when informed that he would then receive an injection of medication, he agreed, but refused to tell staff where he had hidden the oral medication. After much discussion with staff, he ultimately took the oral Zyprexa. When I attempted to meet with him this morning, he repeatedly and angrily demanded that I leave him alone, get out of his room, and said he would not speak to me. He moved toward me rapidly in an aggressive fashion, while raising his voice and stating "get out!" Multiple attempts to engage him failed, he became more agitated, and the interview was terminated. He attended his 304 hearing initially, but sat in a separate part of the room and refused to come to the table. He got up and left mid way through the hearing. Met briefly with his blended case hardener and [facility] staff after the hearing, who indicated that he had been struggling as an outpatient for some time, not following the rules at the [facility] (not allowing them to coordinate care with his outpatient physicians, keeping medica tions in his room, not attending the required outpatient treatment), had been noncompliant with medications for at least several weeks prior to hospitalization, during the same time became aggressive at psych rehab and was asked to leave that program until he stabilized and was in good behavioral control, and that he decompensated further after his outpatient psychiatrist Dr. Alves prescribed him benzodiazepines, which appeared to disinhibit him. Reviewed that in order to return to the [facility], the patient would need to be compliant with medication, preferably on a long-acting injectable antipsychotic (due to his history of improvement on an antipsychotic but repeated noncompliance with oral medications and lack of insight into the presence of an illness or the need for treatment), ability to engage appropriately and outpatient treatment, and manage irritability without becoming aggressive towards others. A meeting had previously been attempted with his outpatient team, but the patient was unable to tolerate it due to the severity of his psychotic symptoms. Physical Exam Psychiatric Orientation: alert; + uncooperative Apperance: + inappropriately dressed Thin male dressed in black stretch pants and sandals Eye Contact: good eye contact (Staring intently) Motor Behavior: steady gait and station and no abnormal motor movements Minimal speech, increasingly loud, angry tone. Affect: + irritable affect and + angry affect Unable to assess as patient refused to participate in discussion, repeatedly and angrily demanding that I leave his room. Unable to assess due to lack of cooperation Patient refuses to answer questions Patient refuses to answer questions Patient refuses to answer questions Insight: + severely impaired insight Judgement: + severely impaired judgement Vital Signs (Past 24 Hours) Last Vital Signs Temp 36.7 C 03/16/19 06:43 Pulse 82 03/16/19 06:44 Resp 18 03/16/19 06:43 BP 115/69 03/16/19 06:44 Pulse Ox 96 02/24/19 08:10 Results & Data Current Inpatient Medications Current Inpatient Medications: Current Inpatient Medications Acetaminophen (Tylenol) 650 mg PO Q4H PRN PRN Reason: Headache or Minor Fever Stop: 03/26/19 16:39 Al Hydrox/Mg Hydrox/Simethicone (Maalox) 30 ml PO Q4H PRN PRN Reason: GI Upset Stop: 03/26/19 16:39 Benztropine Mesylate (Cogentin) 0.5 mg PO BID MAG Stop: 03/26/19 20:59 Last Admin: 03/15/19 21:13 Dose: 0.5 mg Documented by: Bismuth Subsalicylate (Kaopectate) 15 ml PO PRN PRN PRN Reason: Loose Stool Stop: 03/26/19 16:39 Clonidine HCl (Catapres) 0.1 mg PO HS MAG Stop: 03/26/19 20:59 Last Admin: 03/15/19 21:13 Dose: 0.1 mg Documented by: Cyanocobalamin (Vitamin B-12) 500 mcg PO DAILY MAG Stop: 03/27/19 08:59 Last Admin: 03/15/19 08:06 Dose: 500 mcg Documented by: Hydroxyzine HCl (Vistaril) 25 mg PO Q4H PRN PRN Reason: Anxiety Stop: 03/26/19 16:39 Hydroxyzine HCl (Vistaril) 50 mg PO HSZ PRN PRN Reason: Insomnia Stop: 03/26/19 16:39 Magnesium Hydroxide (Milk Of Magnesia) 30 ml PO DAILY PRN PRN Reason: Heartburn Stop: 03/26/19 16:39 Magnesium Oxide (Mag-Ox) 400 mg PO DAILY MAG Stop: 03/27/19 08:59 Last Admin: 03/15/19 08:05 Dose: 400 mg Documented by: Miscellaneous (Remove Nicoderm Patch) 1 ea N/A HS MAG Stop: 03/26/19 20:59 Last Admin: 03/15/19 21:14 Dose: Not Given Documented by: Multivitamins (Multivitamin Tab) 1 tab PO DAILY MAG Stop: 03/27/19 08:59 Last Admin: 03/15/19 08:05 Dose: 1 tab Documented by: Nicotine (Nicoderm Cq) 14 mg TD QAM MAG Stop: 03/27/19 08:59 Last Admin: 03/15/19 08:06 Dose: Not Given Documented by: Olanzapine (Zyprexa Zydis Od) 20 mg PO HS MAG Stop: 04/08/19 21:59 Last Admin: 03/15/19 21:13 Dose: 20 mg Documented by: Olanzapine (Zyprexa) 10 mg IM HS PRN PRN Reason: Undecided Stop: 04/08/19 21:59 Pyridoxine HCl (Vitamin B-6) 100 mg PO DAILY MAG Stop: 03/27/19 08:59 Last Admin: 03/15/19 08:06 Dose: 100 mg Documented by: Risperidone (Risperdal M) 1 mg PO BID PRN PRN Reason: psychosis Stop: 03/31/19 10:36 Sodium Chloride ([place] Nasal) 1 - 2 sprays NA PRN PRN PRN Reason: Nasal Dryness/Congestion Stop: 03/26/19 16:39 Mental Health & Subst Abuse Tx Therapist Name of Therapist: Sammy Homemaker Companion Name of Homemaker Companion: Shruti Lopez Phone Number for Homemaker Companion: Case Management Appointment Comment: [phone], [place] [address] Post Discharge Appointments Primary Care Physician Name Of Family Doctor: Dr. Lopez Contact Information Discharge Discharge Address: [address] [place] [address] CPT Code CPT Code 41242 (1) Schizophrenia Schizophrenia type: paranoid schizophrenia Qualified Code(s): F20.0 - Paranoid schizophrenia (2) Hypertension Hypertension type: essential hypertension Qualified Code(s): I10 - Essential (primary) hypertension
[2019-03-16] MEDS: MAGNESIUM OXIDE 400 MG TAB PO SCH (09:22)
[2019-03-16] MEDS: CYANOCOBALAMIN 500 MCG TABLET (VITAMIN B-12) PO SCH (09:22)
[2019-03-16] MEDS: BENZTROPINE MESYLATE 0.5 MG TAB PO SCH ×2 (09:22→21:10)
[2019-03-16] MEDS: MULTIVITAMIN TAB PO SCH (09:22)
[2019-03-16] MEDS: PYRIDOXINE HCL 50 MG TAB PO SCH (09:23)
[2019-03-16] MEDS: NICOTINE 14 MG/24 HR PATCH TD SCH (09:24)
[2019-03-16] MEDS: cloNIDine HCL 0.1 MG TAB PO SCH (21:10)
[2019-03-16] MEDS: OLANZAPINE ZYDIS 10 MG ORALLY DIS. TAB PO SCH (21:10)
[2019-03-17] MEDS: NICOTINE 14 MG/24 HR PATCH TD SCH (08:11)
[2019-03-17] MEDS: PYRIDOXINE HCL 50 MG TAB PO SCH (08:11)
[2019-03-17] MEDS: MULTIVITAMIN TAB PO SCH (08:11)
[2019-03-17] MEDS: MAGNESIUM OXIDE 400 MG TAB PO SCH (08:11)
[2019-03-17] MEDS: BENZTROPINE MESYLATE 0.5 MG TAB PO SCH ×2 (08:11→21:19)
[2019-03-17] MEDS: CYANOCOBALAMIN 500 MCG TABLET (VITAMIN B-12) PO SCH (08:12)
--- NOTE | 2019-03-17 11:44 | Psychiatric Progress Note ---
Date of Service March 17, 2019 Impression / Recommendations Impression 73-year-old male with schizophrenia who lives at the [facility] and was admitted involuntarily with delusions, hallucinations, irritability and erratic behavior on 02/24/19 after rapidly decompensating 1-2 weeks after he stopped taking his antipsychotic. He was found in a dumpster, floridly delusional, and was combative with [facility] staff. He refused resumption of olanzapine, but ultimately agreed to take aripiprazole. It initially appeared that he was responding favorably, although not completely, to the addition of aripiprazole. Because of the patient's long history of dangerous behaviors in the community associated with nonadherence with psychiatric medications, the patient's behavioral health unit treatment team and his outpatient providers recommended a depo antipsychotic medication, and he initially agreed to Abilify Maintena; however, he then refused it when staff attempted to administer the injection, and subsequently became much more oppositional and hostile towards the hospital providers. He is now completely uncooperative with treatment, refusing all groups, has refused to talk with the psychiatrist for the past 4 days, and refusing mouth checks after Zyprexa Zydis, which he states he does not need. He is refusing a long-acting injectable. He has a clear history of dangerous behaviors during periods of nonadherence with medications in the community, and inpatient psychiatric hospitalization remains the least intensive, least restrictive level of care consistent with the patient's clinical and safety needs. (1) Schizophrenia: 02/25 - Continue home medication regimen - as refusing offerings of his antipsychotic, will likely require olanzapine IM (or alternative agent) over objection, given clear evidence of paranoia and delusional thought process - previously stabilized on this medication - Pt agreeable to taking all other medications, with exception of antipsychotic as mentioned above - Admitted to a locked inpatient behavioral health unit, on q15 minute safety checks - Encourage medication initiation/adjustments as indicated - Encourage participation in group and recreational therapies - Gather collateral information from outpatient providers and [facility] staff - Suggest family meeting to involve outpatient supports in safety planning - Reschedule appropriate aftercare appointments 02/26 -Patient indicates willingness to sign a release for the [facility], will get collateral from their staff. -File for 303 involuntary commitment to be held tomorrow. -Recommend medications over objection, with an IM Zyprexa backup for refusal of oral medication. Involve outpatient treatment team to discuss ways to improve stability and compliance; consider long-acting injectable antipsychotic. -Order fasting labs for monitoring on an atypical antipsychotic once patient is more cooperative. 02/27 -The patient was retrained at his involuntary commitment hearing (303) this morning. -He has continuously and consistently refused psychiatric medications to date. However, today, when I explained that that a option that might become necessary in his case is medication over objection, and an intramuscular form, the patient said that he understood and that he would try medications that I prescribe. His initial preference would be olanzapine, but because olanzapine is not available in a long acting depot form, we would first like to try aripiprazole. He indicates that he is taken aripiprazole in the past and has been able to tolerate it, although he does not believe that it has been particul kristan helpful. -A trial dose of aripiprazole 15 mg by mouth, as a one-time dose, has been ordered and he assessed for efficacy. 02/28 -Appears to be tolerating initiation of Abilify so far. Remains delusional, paranoid. May consider further titration tomorrow -Aricept discontinued at patient's request on 02/27/2019. The medication has not been demonstrated to be efficacious for cognitive impairment associated with long-standing schizophrenia however we should be vigilant for slowing of mentation following discontinuation. 03/01 Patient fixated and irrational regarding access to clothing item as above today. Hospital environment becoming incorporated and delusions. Consider possibility that the aripiprazole is contributing to activation. We will increase to 20 mg tomorrow and also start Risperdal 1 mg p.o. twice daily as as needed. 03/02 - Continue with aripiprazole at 20mg daily, consider need for further titration - if tolerating and effective, eventual plan will be for conversion to Abilify Maintena - Pt has not yet utilized risperidone 03/03 - Increase aripiprazole to 25mg (equivalent to 30mg pill) and change to liquid formulation to decrease risk of cheeking/nonadherence, as patient does not believe he needs medication and had been noncompliant prior to hospitalization. - Fasting glucose and lipid profile ordered for tomorrow for monitoring on an atypical antipsychotic. - Private room due to psychosis, agitation, and inappropriate disrobing/sexual behavior. - Meeting with [facility] and [facility] staff when patient able to tolerate. 03/04 - Continue aripiprazole 25mg liquid (30mg pill equivalent) and continue to observe for improvement in thought process/content - consider conversion to Maintena if effective, versus trial of another agent if improvement remains li mited - Fasting labs reviewed - all values WNL - Continue medically necessary private room - Request meeting with [facility] staff, in order to obtain details about patient's proximity to baseline 03/05 -Patient refusing liquid aripiprazole, but agrees to take the pill: Ordered 30 mg daily. -Schedule meeting with his pillowcase sewer, [facility] and psych rehab staff. Consider involuntary outpatient commitment at the time of discharge. 03/06 -The patient has improved in that he is more reality based at this point. He continues to harbor fixed, systematized delusions, but is generally able to focus on reality based topics. -Although the patient tells me that he does not feel that aripiprazole has been effective, he is able to accept my opinion in the opinion of the staff that he has improved in response to aripiprazole. -The patient's main objection to aripiprazole oral solution is that he does not like the way it tastes, and within this context, he tells us that he is willing to accept Abilify Maintenaand requests that it be injected into his buttock. Abilify Maintena 300 mg IM ordered, and oral Abilify discontinued. We will resume oral Abilify if the patient subsequently changes his mind and refuses the injection. 03/07 resuming abilfiy oral given his refusal of FARAH form of abilify 03/08 is taking abilify po form but refusing abilify maintena form. advise close monitoring for potential of checking given pt's tendency to not want to take medications. 03/09 -The patient is flatly refusing to take aripiprazole in the form of Abilify Maintena. He is also been hesitant to take oral Abilify, but has been doing so. -The patient's lack of cooperation is thought possibly to be related to an un-expressed desire to not be discharged back to the community. He told me today that he left his meeting with his community providers after a few seconds because "just the side of them made me extremely anxious. My pulse elevated to 140." Later, he told me that he was still anxious about it and his pulse was "still around 130." The patient allowed me to take his pulse, and it was approximately 76. At that point he said, "did I say pulse? I meant systolic blood pressure." And when I pointed out that his systolic blood pressure of 130 is not considered to be a particular concern, he said "I mean diastolic." -Our hope had been that the patient would agree to accept a Depo form of medication. He was refusing Haldol Decanoate because of various side effects. Risperidone constant was ruled out as a first-line Depo medication because of the frequency of administration (the patient tends to get into power struggles over medications) and because he says that he is sensitive to "big needles." Invega would be an option, but currently the patient is being so uncooperative that our concern would be that he would cheek the oral tablets that we would have to give him first. Accordingly, the new strategy will be to discontinue Abilify, and resume olanzapine with olanzapine IM over objection if necessary. We will begin the olanzapine Zydis 20 mg at bedtime 03/10 -The patient took the prescribed dose of olanzapine Zydis 20 mg at bedtime last night. Today, he tells me that it "did not help at all." However, staff report that he has been somewhat more agreeable, more pleasant, and less paranoid today. -As he has with other providers, today he told me that I should have given him olanzapine 5 mg "to start", and I explained that he was already on olanzapine 20 mg when he came into the hospital and we know that he is able to tolerate that dose. He tells me that he did, in fact tolerate the dose and is not aware of any side effects, but, somewhat illogically, insisted that the dose was "too high for a starting dose." 03/11 - Continue current medication regimen at this time - olanzapine 20mg daily - Encourage participation in the milieu and in group programming as tolerated 03/12 -Continue current medication regimen. The patient's condition has not yet improved. -The patient does participate in select groups, but often tends to be disruptive. 03/13 -Today, the patient seems to be somewhat more cooperative and less frankly delusional. It was possible to engage in a mostly reality based conversation for 5 or 10 minutes at a time. Also, although he was unhappy with me when I refused to provide him with a dose of Valium for anxiety, he was able to remain pleasant and calm at this time, did not storm from the room." 03/14 and 03/15 -no change in medication will work on therapeutic alliance given patient is not participating 03/16 -304 involuntary commitment granted. -Patient remains completely uncooperative with treatment, refused his Zyprexa Zydis last evening, but then ultimately took it before he received the injection. I have a high suspicion for cheeking of antipsychotic medication, and we will continue to be vigilant with mouth checks, and work towards a long- acting injectable. 03/17 -Patient has been on Zyprexa 20 mg at bedtime for 1 week, with limited response. He is refusing to discuss other medication options. Per records, he has been prescribed up to 30 mg olanzapine in the past, so will increase his dose to this previously tolerated dose, as it is 1 of the few medications he has been willing to take. Continue IM backup for refusal, and Zyprexa Zydis formulation to decrease risk of cheeking. He is not compliant with mouth checks, but have asked staff to try to observe him for 10 minutes after taking the Zydis to ensure he is not spitting it out before it dissolves. (2) Substance abuse: 02/25 - Pt has reported history of substance abuse, and recommendation has consistently been for avoidance of substances with significant abuse potential. - PDMP queried - most recent prescriptions below - lorazepam 0.5mg #60 tabs for 30 day supply - Dr. Alves - filled 02/12/2019 - alprazolam 0.5mg #90 tabs for 30 day supply - Dr. Lopez - filled 01/16/2019 - temazepam 30mg #30 caps for 30 day supply - Dr. Lopez - filled 01/16/2019 - Will continue lorazepam 0.5mg BID prn on admission, as only medication that is seemingly active - toxicology screen is negative for benzodiazepines, which questions if he has been taking the medication appropriately - Ideally will taper and discontinue the lorazepam, as recommendation remains that substances with abuse potential be avoided 02/26 -The patient's outpatient providers, during a meeting this morning, report that the patient tends to successfully convince physicians to prescribe benzodiazepines for him and that, in the past, he has abused him to the degree that he is practically obtunded. 02/27 -A repeat check of the PDMP reveals that the patient is consistently being prescribed lorazepam 0.5 mg twice daily (number 60/month) by a Dr. Brent Alves. He is also being prescribed alprazolam 0.[address] mg [address] Jeff Lopez, with the most recent previous prescription of alprazolam being on 01/16/[address] Lopez also prescribed temazepam 30 mg capsules #30 on 01/16/2019. According to his residential providers, no temazepam capsules were found among the patient's belongings. His most recent prescription for lorazepam 0.5 mg tablets was filled on 02/12/2019. 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 In the past, he reportedly has used clonazepam and temazepam. -I advised the patient that because of his history of misuse of benzodiazepines we would not be prescribing benzodiazepines during his hospital stay. An as needed order for lorazepam has not been used during hospital stay, and I discontinued the order today. 03/02 - Will need to coordinate care with his PCP and outpatient psychiatrist prior to discharge regarding the above. 03/04 - Charge nurse spoke with the above offices regarding concern for continued benzodiazepine prescriptions - Records will be faxed to their offices on discharge, as all benzodiazepines were discontinued during this hospitalization 03/06 -The patient did not request benzodiazepines and did not complain of anxiety today. I suggested to him that perhaps Abilify is also helping with anxiety in his case, and he responded by saying "perhaps." 03/09 -Today, the patient is insisting that what he needs is "benzodiazepines," and explains that the reason he "needs" benzodiazepines is that he has "benzodiazepine receptors," and that he is the only medications that work. He is unable to process warnings about the risks of benzodiazepines in the elderly, including increased risk of falls and mortality. Clearly, the patient is seeking benzodiazepines and has no insight into the associated risks. He also insists that he has never had trouble with benzodiazepines in the past, although there is well-documented of this. 03/10 -Today, the patient repeated his insistence that he needs benzodiazepines and that benzodiazepines are the only medications that work because he has "benzodiazepine receptors." After being told that everyone has central nervous system receptors to which benzodiazepines may attach, he replied, "That may be, but some of people need to have benzodiazepines forearm benzodiazepine receptors. 03/12 -Continues to request Benzodiazepines. 03/13 -Requests Valium for his "benzodiazepines." (3) Hypertension: 02/25 - Continue home dose of clonidine 0.1mg qHS 03/01 Watch mildly elevated blood pressures as patient has been refusing clonidine 03/03 - BP normal past two days, and low today 03/10 -The patient's blood pressure today was 136/73. His pulse was 71 03/14 - elevated BP it is not urgent but will need monitored. 03/15 - BP WNL Inventory Assets Strengths: -Intelligence. Support of community providers. Well educated. Needs: Resume symptom-stabilizing medication regimen, coordinate care with [facility] Risk Factors Assessment Male: Yes : Yes Do You Have Access To A Gun?: No Health Problems: Yes Mental Health Diagnoses: Yes Substance Use Disorders: Yes Protective Factors Assessment Gnosticism Beliefs: No : No Responsible for Young Children: No Employed: No Stable Relationships: No Supportive Family: No Good Rapport with Provider: No Interval History Identifying Information SCOTT ROBERTO is a 73-year-old M who currently lives at a [facility] in [place]. Pt has a history of schizophrenia and is known to our unit from several previous admissions, most recently in 09/2016. Pt and was admitted on 02/24/19 16:40 on a 302 involuntary commitment for exacerbation of schizophrenia and heightened paranoia resulting in belief he needed to hide in a dumpster to seek refuge from impending bombings. Pt was found by [facility] staff and brought to the ED by police. He is on a 304 involuntary commitment as of 03/16/19. Chief Complaint "You are not a real psychiatrist". Review of Systems Sleep Information Total Hours of Sleep: 5 Sleep Comments: pt requested to have his lights on during the night. pt appeared to be asleep@0030 and thereafter. pt on q-15 minute checks Meal Information Percent Meal Consumed - Breakfast: 100 Percent Meal Consumed - Lunch: 100 Percent Meal Consumed - Dinner: 75 Nutrition Comment: per meal record Subjective Subjective Patient was seen & assessed and interval progress reviewed with Nursing and social work. Staff report he remains uncooperative with treatment, isolating in his room and not interacting with others. He refuses to answer most questions from staff, and made a comment that staff "put a killer in there," referring to the closet containing the washer and dryer. He is refusing groups, and is irritable. I attempted to assess him, but he again refused to talk with me, stating repeatedly that I was not a real psychiatrist, and that he would not speak with me. He refused to answer any questions. He then stated "schizophrenia is a brain disorder, there is nothing you can do for it." Physical Exam Psychiatric Orientation: alert; + uncooperative Thin male wearing black stretch pants, sandals, and a longsleeved shirt. Seated in his room in no acute distress. Eye Contact: good eye contact Motor Behavior: steady gait and station and no abnormal motor movements Minimal speech, angry tone. Affect: + irritable affect and + constricted affect Patient refuses to answer. Thought Process: goal directed thought process Thought Content: + paranoid, + delusions and + persecution Patient refuses to answer. Patient refuses to answer. Patient refuses to answer. Insight: + severely impaired insight Judgement: + severely impaired judgement Vital Signs (Past 24 Hours) Last Vital Signs Temp 36.5 C 03/17/19 06:43 Pulse 92 H 03/17/19 06:44 Resp 18 03/17/19 06:43 BP 146/89 H 03/17/19 06:44 Pulse Ox 96 02/24/19 08:10 Results & Data Current Inpatient Medications Current Inpatient Medications: Current Inpatient Medications Acetaminophen (Tylenol) 650 mg PO Q4H PRN PRN Reason: Headache or Minor Fever Stop: 03/26/19 16:39 Al Hydrox/Mg Hydrox/Simethicone (Maalox) 30 ml PO Q4H PRN PRN Reason: GI Upset Stop: 03/26/19 16:39 Benztropine Mesylate (Cogentin) 0.5 mg PO BID MAG Stop: 03/26/19 20:59 Last Admin: 03/17/19 08:11 Dose: 0.5 mg Documented by: Bismuth Subsalicylate (Kaopectate) 15 ml PO PRN PRN PRN Reason: Loose Stool Stop: 03/26/19 16:39 Clonidine HCl (Catapres) 0.1 mg PO HS MAG Stop: 03/26/19 20:59 Last Admin: 03/16/19 21:10 Dose: Not Given Documented by: Cyanocobalamin (Vitamin B-12) 500 mcg PO DAILY MAG Stop: 03/27/19 08:59 Last Admin: 03/17/19 08:12 Dose: 500 mcg Documented by: Hydroxyzine HCl (Vistaril) 25 mg PO Q4H PRN PRN Reason: Anxiety Stop: 03/26/19 16:39 Hydroxyzine HCl (Vistaril) 50 mg PO HSZ PRN PRN Reason: Insomnia Stop: 03/26/19 16:39 Magnesium Hydroxide (Milk Of Magnesia) 30 ml PO DAILY PRN PRN Reason: Heartburn Stop: 03/26/19 16:39 Magnesium Oxide (Mag-Ox) 400 mg PO DAILY MAG Stop: 03/27/19 08:59 Last Admin: 03/17/19 08:11 Dose: 400 mg Documented by: Miscellaneous (Remove Nicoderm Patch) 1 ea N/A HS [facility] Stop: 03/26/19 20:59 Last Admin: 03/16/19 21:11 Dose: Not Given Documented by: Multivitamins (Multivitamin Tab) 1 tab PO DAILY MAG Stop: 03/27/19 08:59 Last Admin: 03/17/19 08:11 Dose: 1 tab Documented by: Nicotine (Nicoderm Cq) 14 mg TD QAM [facility] Stop: 03/27/19 08:59 Last Admin: 03/17/19 08:11 Dose: Not Given Documented by: Olanzapine (Zyprexa Zydis Od) 20 mg PO HS MAG Stop: 04/08/19 21:59 Last Admin: 03/16/19 21:10 Dose: 20 mg Documented by: Olanzapine (Zyprexa) 10 mg IM HS PRN PRN Reason: Undecided Stop: 04/08/19 21:59 Pyridoxine HCl (Vitamin B-6) 100 mg PO DAILY MAG Stop: 03/27/19 08:59 Last Admin: 03/17/19 08:11 Dose: 100 mg Documented by: Risperidone (Risperdal M) 1 mg PO BID PRN PRN Reason: psychosis Stop: 03/31/19 10:36 Sodium Chloride (Pegram Nasal) 1 - 2 sprays NA PRN PRN PRN Reason: Nasal Dryness/Congestion Stop: 03/26/19 16:39 Mental Health & Subst Abuse Tx Therapist Name of Therapist: Sammy House Visitor Name of House Visitor: Shruti Resendez Tasiajose Phone Number for House Visitor: Case Management Appointment Comment: [id number], [place] [address] Post Discharge Appointments Primary Care Physician Name Of Family Doctor: Dr. Lopez Contact Information Discharge Discharge Address: [address] [place] [address], [place] [address] CPT Code CPT Code 72625 (1) Schizophrenia Schizophrenia type: paranoid schizophrenia Qualified Code(s): F20.0 - Paranoid schizophrenia (2) Hypertension Hypertension type: essential hypertension Qualified Code(s): I10 - Essential (primary) hypertension
[2019-03-17] MEDS: cloNIDine HCL 0.1 MG TAB PO SCH (21:19)
[2019-03-17] MEDS: OLANZAPINE ZYDIS 10 MG ORALLY DIS. TAB PO SCH (21:19)
[2019-03-18] MEDS: MULTIVITAMIN TAB PO SCH (09:53)
[2019-03-18] MEDS: MAGNESIUM OXIDE 400 MG TAB PO SCH (09:53)
[2019-03-18] MEDS: BENZTROPINE MESYLATE 0.5 MG TAB PO SCH ×2 (09:53→21:30)
[2019-03-18] MEDS: CYANOCOBALAMIN 500 MCG TABLET (VITAMIN B-12) PO SCH (09:54)
[2019-03-18] MEDS: NICOTINE 14 MG/24 HR PATCH TD SCH (09:54)
[2019-03-18] MEDS: PYRIDOXINE HCL 50 MG TAB PO SCH (09:54)
--- NOTE | 2019-03-18 11:47 | Psychiatric Progress Note ---
Date of Service March 18, 2019 Impression / Recommendations Impression 73-year-old male with schizophrenia who lives at the [facility] and was admitted involuntarily on 02/24/2019 with delusions, hallucinations, irritability and erratic behavior after rapid decompensation 1 -2 weeks after he stopped taking his antipsychotic. He was found in a dumpster, floridly delusional, and was combative with [facility] staff. He refused resumption of olanzapine, but ultimately agreed to take aripiprazole. It initially appeared that he was responding favorably, although not completely, to the addition of aripiprazole. Because of the patient's long history of dangerous behaviors in the community associated with nonadherence with psychiatric medications, the patient's behavioral health unit treatment team and his outpatient providers recommended a depo antipsychotic medication, and he initially agreed to Abilify Maintena; however, refused it when staff attempted to administer the injection, and subsequently became much more oppositional and hostile towards staff. He is now completely uncooperative with treatment, refusing all groups, refusing to talk with staff or clinicians, and refusing mouth checks after Zyprexa Zydis, which he states he does not need. He is refusing a long-acting injectable, and has refused to meet with his outpatient case worker and snf staff. He has a clear history of dangerous behaviors during periods of nonadherence with medications in the community, and inpatient psychiatric hospitalization remains the least intensive, least restrictive level of care consistent with the patient's clinical and safety needs. (1) Schizophrenia: He has tried o/10 - Continue home medication regimen - as refusing offerings of his antipsychotic, will likely require olanzapine IM (or alternative agent) over o bjection, given clear evidence of paranoia and delusional thought process - previously stabilized on this medication - Pt agreeable to taking all other medications, with exception of antipsychotic as mentioned above - Admitted to a locked inpatient behavioral health unit, on q15 minute safety checks - Encourage medication initiation/adjustments as indicated - Encourage participation in group and recreational therapies - Gather collateral information from outpatient providers and snf staff - Suggest family meeting to involve outpatient supports in safety planning - Reschedule appropriate aftercare appointments 02/26 -Patient indicates willingness to sign a release for the [facility] snf, will get collateral from their staff. -File for 303 involuntary commitment to be held tomorrow. -Recommend medications over objection, with an IM Zyprexa backup for refusal of oral medication. Involve outpatient treatment team to discuss ways to improve stability and compliance; consider long-acting injectable antipsychotic. -Order fasting labs for monitoring on an atypical antipsychotic once patient is more cooperative. 02/27 -The patient was retrained at his involuntary commitment hearing (303) this morning. -He has continuously and consistently refused psychiatric medications to date. However, today, when I explained that that a option that might become necessary in his case is medication over objection, and an intramuscular form, the patient said that he understood and that he would try medications that I prescribe. His initial preference would be olanzapine, but because olanzapine is not available in a long acting depot form, we would first like to try aripiprazole. He indicates that he is taken aripiprazole in the past and has been able to tolerate it, although he does not believe that it has been particularly helpful. -A trial dose of aripiprazole 15 mg by mouth, as a one-time dose, has been ordered and he assessed for efficacy. 02/28 -Appears to be tolerating initiation of Abilify so far. Remains delusional, paranoid. May consider further titration tomorrow -Aricept discontinued at patient's request on 02/27/2019. The medication has not been demonstrated to be efficacious for cognitive impairment associated with long-standing schizophrenia however we should be vigilant for slowing of mentation following discontinuation. 03/01 Patient fixated and irrational regarding access to clothing item as above today. Hospital environment becoming incorporated and delusions. Consider possibility that the aripiprazole is contributing to activation. We will increase to 20 mg tomorrow and also start Risperdal 1 mg p.o. twice daily as as needed. 03/02 - Continue with aripiprazole at 20mg daily, consider need for further titration - if tolerating and effective, eventual plan will be for conversion to Abilify Maintena - Pt has not yet utilized risperidone 03/03 - Increase aripiprazole to 25mg (equivalent to 30mg pill) and change to liquid formulation to decrease risk of cheeking/nonadherence, as patient does not believe he needs medication and had been noncompliant prior to hospitalization. - Fasting glucose and lipid profile ordered for tomorrow for monitoring on an atypical antipsychotic. - Private room due to psychosis, agitation, and inappropriate disrobing/sexual behavior. - Meeting with [facility] and [facility] staff when patient able to tolerate. 03/04 - Continue aripiprazole 25mg liquid (30mg pill equivalent) and continue to observe for improvement in thought process/content - consider conversion to Maintena if effective, versus trial of another agent if improvement remains limited - Fasting labs reviewed - all values WNL - Continue medically necessary private room - Request meeting with [facility] staff, in order to obtain details about patient's proximity to baseline 03/05 -Patient refusing liquid aripiprazole, but agrees to take the pill: Ordered 30 mg daily. -Schedule meeting with his case worker, CRR and psych rehab staff. Consider involuntary outpatient commitment at the time of discharge. 03/06 -The patient has improved in that he is more reality based at this point. He continues to harbor fixed, systematized delusions, but is generally able to focus on reality based topics. -Although the patient tells me that he does not feel that aripiprazole has been effective, he is able to accept my opinion in the opinion of the staff that he has improved in response to aripiprazole. -The patient's main objection to aripiprazole oral solution is that he does not like the way it tastes, and within this context, he tells us that he is willing to accept Abilify Maintenaand requests that it be injected into his buttock. Abilify Maintena 300 mg IM ordered, and oral Abilify discontinued. We will resume oral Abilify if the patient subsequently changes his mind and refuses the injection. 03/07 resuming abilfiy oral given his refusal of FARAH form of abilify 03/08 is taking abilify po form but refusing abilify maintena form. advise close monitoring for potential of checking given pt's tendency to not want to take medications. 03/09 -The patient is flatly refusing to take aripiprazole in the form of Abilify Maintena. He is also been hesitant to take oral Abilify, but has been doing so. -The patient's lack of cooperation is thought possibly to be related to an un-expressed desire to not be discharged back to the community. He told me today that he left his meeting with his community providers after a few seconds because "just the side of them made me extremely anxious. My pulse elevated to 140." Later, he told me that he was still anxious about it and his pulse was "still around 130." The patient allowed me to take his pulse, and it was approximately 76. At that point he said, "did I say pulse? I meant systolic blood pressure." And when I pointed out that his systolic blood pressure of 130 is not considered to be a particular concern, he said "I mean diastolic." -Our hope had been that the patient would agree to accept a Depo form of medication. He was refusing Haldol Decanoate because of various side effects. Risperidone constant was ruled out as a first-line Depo medication because of the frequency of administration (the patient tends to get into power struggles over medications) and because he says that he is sensitive to "big needles." Invega would be an option, but currently the patient is being so uncooperative that our concern would be that he would cheek the oral tablets that we would have to give him first. Accordingly, the new strategy will be to discontinue Abilify, and resume olanzapine with olanzapine IM over objection if necessary. We will begin the olanzapine Zydis 20 mg at bedtime 03/10 -The patient took the prescribed dose of olanzapine Zydis 20 mg at bedtime last night. Today, he tells me that it "did not help at all." However, staff report that he has been somewhat more agreeable, more pleasant, and less paranoid today. -As he has with other providers, today he told me that I should have given him olanzapine 5 mg "to start", and I explained that he was already on olanzapine 20 mg when he came into the hospital and we know that he is able to tolerate that dose. He tells me that he did, in fact tolerate the dose and is not aware of any side effects, but, somewhat illogically, insisted that the dose was "too high for a starting dose." 03/11 - Continue current medication regimen at this time - olanzapine 20mg daily - Encourage participation in the milieu and in group programming as tolerated 03/12 -Continue current medication regimen. The patient's condition has not yet improved. -The patient does participate in select groups, but often tends to be disruptive. 03/13 -Today, the patient seems to be somewhat more cooperative and less frankly delusional. It was possible to engage in a mostly reality based conversation for 5 or 10 minutes at a time. Also, although he was unhappy with me when I refused to provide him with a dose of Valium for anxiety, he was able to remain pleasant and calm at this time, did not storm from the room." 03/14 and 03/15 -no change in medication will work on therapeutic alliance given patient is not participating 03/16 -304 involuntary commitment granted. -Patient remains completely uncooperative with treatment, refused his Zyprexa Zydis last evening, but then ultimately took it before he received the injection. I have a high suspicion for cheeking of antipsychotic medication, and we will continue to be vigilant with mouth checks, and work towards a long- acting injectable. 03/17 -Patient has been on Zyprexa 20 mg at bedtime for 1 week, with limited response. He is refusing to discuss other medication options. Per records, he has been prescribed up to 30 mg olanzapine in the past, so will increase his dose to this previously tolerated dose, as it is 1 of the few medications he has been willing to take. Continue IM backup for refusal, and Zyprexa Zydis for mulation to decrease risk of cheeking. He is not compliant with mouth checks, but have asked staff to try to observe him for 10 minutes after taking the Zydis to ensure he is not spitting it out before it dissolves. 03/18 -Continue Zyprexa Zydis 30 mg at bedtime with IM backup. Consider switch to a different medication (?oral paliperidone with IM backup) if irritability and agitation continues. He has tried virtually every atypical antipsychotic and reports none of them were effective (although some trials were short due to nonadherence) and has a history of dystonia on haloperidol. Clozapine would be a reasonable choice, but he has been unwilling to even discuss medication options. -Consider some component of cognitive decline which could be contributing to his worsening presentation and will need to be monitored and worked up further once he is more psychiatrically stable. -Refer to [facility] in the event that he does not improve and long-term inpatient treatment is needed. (2) Substance abuse: 02/25 - Pt has reported history of substance abuse, and recommendation has consistently been for avoidance of substances with significant abuse potential. - PDMP queried - most recent prescriptions below - lorazepam 0.5mg #60 tabs for 30 day supply - Dr. Alves - filled 02/12/2019 - alprazolam 0.5mg #90 tabs for 30 day supply - Dr. Lopez - filled 01/16/2019 - temazepam 30mg #30 caps for 30 day supply - Dr. Lopez - filled 01/16/2019 - Will continue lorazepam 0.5mg BID prn on admission, as only medication that is seemingly active - toxicology screen is negative for benzodiazepines, which questions if he has been taking the medication appropriately - Ideally will taper and discontinue the lorazepam, as recommendation remains that substances with abuse potential be avoided 02/26 -The patient's outpatient providers, during a meeting this morning, report that the patient tends to successfully convince physicians to prescribe benzodiazepines for him and that, in the past, he has abused him to the degree that he is practically obtunded. 02/27 -A repeat check of the PDMP reveals that the patient is consistently being prescribed lorazepam 0.5 mg twice daily (number 60/month) by a Dr. Brent Alves. He is also being prescribed alprazolam 0.[address] mg [address] Jeff Lopez, with the most recent previous prescription of alprazolam being on 01/16/[address] Lopez also prescribed temazepam 30 mg capsules #30 on 01/16/2019. According to his residential providers, no temazepam capsules were found among the patient's belongings. His most recent prescription for lorazepam 0.5 mg tablets was filled on 02/12/2019. 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 In the past, he reportedly has used clonazepam and temazepam. -I advised the patient that because of his history of misuse of benzodiazepines we would not be prescribing benzodiazepines during his hospital stay. An as needed order for lorazepam has not been used during hospital stay, and I discontinued the order today. 03/02 - Will need to coordinate care with his PCP and outpatient psychiatrist prior to discharge regarding the above. 03/04 - Charge nurse spoke with the above offices regarding concern for continued benzodiazepine prescriptions - Records will be faxed to their offices on discharge, as all benzodiazepines were discontinued during this hospitalization 03/06 -The patient did not request benzodiazepines and did not complain of anxiety today. I suggested to him that perhaps Abilify is also helping with anxiety in his case, and he responded by saying "perhaps." 03/09 -Today, the patient is insisting that what he needs is "benzodiazepines," and explains that the reason he "needs" benzodiazepines is that he has "benzodiazepine receptors," and that he is the only medications that work. He is unable to process warnings about the risks of benzodiazepines in the elderly, including increased risk of falls and mortality. Clearly, the patient is seeking benzodiazepines and has no insight into the associated risks. He also insists that he has never had trouble with benzodiazepines in the past, although there is well-documented of this. 03/10 -Today, the patient repeated his insistence that he needs benzodiazepines and that benzodiazepines are the only medications that work because he has "benzodiazepine receptors." After being told that everyone has central nervous system receptors to which benzodiazepines may attach, he replied, "That may be, but some of people need to have benzodiazepines forearm benzodiazepine receptors. 03/12 -Continues to request Benzodiazepines. 03/13 -Requests Valium for his "benzodiazepines." (3) Hypertension: 02/25 - Continue home dose of clonidine 0.1mg qHS 03/01 Watch mildly elevated blood pressures as patient has been refusing clonidine 03/03 - BP normal past two days, and low today 03/10 -The patient's blood pressure today was 136/73. His pulse was 71 03/14 - elevated BP it is not urgent but will need monitored. 03/15 - BP WNL Inventory Assets Strengths: -Intelligence. Support of community providers. Well educated. Needs: Resume symptom-stabilizing medication regimen, coordinate care with snf Risk Factors Assessment Male: Yes : Yes Do You Have Access To A Gun?: No Health Problems: Yes Mental Health Diagnoses: Yes Substance Use Disorders: Yes Protective Factors Assessment Congregational Beliefs: No : No Responsible for Young Children: No Employed: No Stable Relationships: No Supportive Family: No Good Rapport with Provider: No Interval History Identifying Information SCOTT ROBERTO is a 73-year-old M who currently lives at a [facility] in [place]. Pt has a history of schizophrenia and is known to our unit from several previous admissions, most recently in 09/2016. Pt and was admitted on 02/24/19 16:40 on a 302 involuntary commitment for exacerbation of schizophrenia and heightened paranoia resulting in belief he needed to hide in a dumpster to seek refuge from impending bombings. Pt was found by [facility] staff and brought to the ED by police. He is on a 304 involuntary commitment as of 03/16/19. Chief Complaint "I don't want to talk to you, go away!" Review of Systems Sleep Information Total Hours of Sleep: 6.75 Sleep Comments: pt requested to have his lights on during the night. pt appeared to be asleep@0030 and thereafter. pt on q-15 minute checks Meal Information Percent Meal Consumed - Breakfast: 100 Percent Meal Consumed - Lunch: 75 Percent Meal Consumed - Dinner: 50 Nutrition Comment: per meal record Subjective Subjective Patient was seen & assessed and interval progress reviewed with Treatment Team. Staff report the patient remains angry, uncooperative, refuses all groups, and spends his time in his room alone. Social work met with him yesterday and he indicated interest in returning to the [facility], but when they attempted to discuss the need to have a meeting with [facility] staff, he became irritated and told staff not to disturb his things. He did come out to eat, but refused to talk to staff. He initially refused to take his medications last night, but when additional staff came into his room to encourage him to take them, he agreed. On my assessment today, he was seen in his room, where he was standing with arms crossed tightly over his chest. As I was reading him, he interrupted to state loudly and angrily that he did not want to talk to me. He was advised that, as per our conversation yesterday, he would be referred to the [facility] for long-term treatment if he was unable to engage or progress in his treatment here, and responded with "I don't care." He then said "you know schizophrenia is a brain disease, it does not respond to these palliative treatments you are doing." When asked to tell me more, he turned his back and said "get out of here, I don't want to talk to you." Physical Exam Psychiatric Orientation: alert; + uncooperative Apperance: + inappropriately dressed Thin, wearing black stretch pants, sport sandals, and a long sleeve shirt. Standing in his staring angrily with arms crossed tightly over his chest. Initially staring angrily, then turns his back and avoids eye contact. Motor Behavior: steady gait and station and no abnormal motor movements Minimal speech, nasir, angry tone. Affect: + irritable affect and + constricted affect Refuses to answer Thought Process: + tangential thought process and + perseveration Refuses to answer Refuses to answer Refuses to answer Refuses to answer Insight: + severely impaired insight Judgement: + severely impaired judgement Vital Signs (Past 24 Hours) Last Vital Signs Temp 37.6 C H 03/18/19 06:00 Pulse 85 03/18/19 06:45 Resp 16 03/18/19 06:00 BP 136/91 03/18/19 06:45 Pulse Ox 96 02/24/19 08:10 Results & Data Current Inpatient Medications Current Inpatient Medications: Current Inpatient Medications Acetaminophen (Tylenol) 650 mg PO Q4H PRN PRN Reason: Headache or Minor Fever Stop: 03/26/19 16:39 Al Hydrox/Mg Hydrox/Simethicone (Maalox) 30 ml PO Q4H PRN PRN Reason: GI Upset Stop: 03/26/19 16:39 Benztropine Mesylate (Cogentin) 0.5 mg PO BID MAG Stop: 03/26/19 20:59 Last Admin: 03/18/19 09:53 Dose: 0.5 mg Documented by: Bismuth Subsalicylate (Kaopectate) 15 ml PO PRN PRN PRN Reason: Loose Stool Stop: 03/26/19 16:39 Clonidine HCl (Catapres) 0.1 mg PO HS MAG Stop: 03/26/19 20:59 Last Admin: 03/17/19 21:19 Dose: 0.1 mg Documented by: Cyanocobalamin (Vitamin B-12) 500 mcg PO DAILY MAG Stop: 03/27/19 08:59 Last Admin: 03/18/19 09:54 Dose: Not Given Documented by: Hydroxyzine HCl (Vistaril) 25 mg PO Q4H PRN PRN Reason: Anxiety Stop: 03/26/19 16:39 Hydroxyzine HCl (Vistaril) 50 mg PO HSZ PRN PRN Reason: Insomnia Stop: 03/26/19 16:39 Magnesium Hydroxide (Milk Of Magnesia) 30 ml PO DAILY PRN PRN Reason: Heartburn Stop: 03/26/19 16:39 Magnesium Oxide (Mag-Ox) 400 mg PO DAILY MAG Stop: 03/27/19 08:59 Last Admin: 03/18/19 09:53 Dose: Not Given Documented by: Miscellaneous (Remove Nicoderm Patch) 1 ea N/A HS MAG Stop: 03/26/19 20:59 Last Admin: 03/17/19 21:25 Dose: Not Given Documented by: Multivitamins (Multivitamin Tab) 1 tab PO DAILY MAG Stop: 03/27/19 08:59 Last Admin: 03/18/19 09:53 Dose: Not Given Documented by: Nicotine (Nicoderm Cq) 14 mg TD QAM MAG Stop: 03/27/19 08:59 Last Admin: 03/18/19 09:54 Dose: Not Given Documented by: Olanzapine (Zyprexa) 10 mg IM HS PRN PRN Reason: Undecided Stop: 04/08/19 21:59 Olanzapine (Zyprexa Zydis Od) 30 mg PO HS MAG Stop: 04/16/19 21:59 Last Admin: 03/17/19 21:19 Dose: 30 mg Documented by: Pyridoxine HCl (Vitamin B-6) 100 mg PO DAILY MAG Stop: 03/27/19 08:59 Last Admin: 03/18/19 09:54 Dose: Not Given Documented by: Risperidone (Risperdal M) 1 mg PO BID PRN PRN Reason: psychosis Stop: 03/31/19 10:36 Sodium Chloride ([place] Nasal) 1 - 2 sprays NA PRN PRN PRN Reason: Nasal Dryness/Congestion Stop: 03/26/19 16:39 Mental Health & Subst Abuse Tx Therapist Name of Therapist: Denies Power Truck Driver Name of Power Truck Driver: Shruti Lopez Phone Number for Power Truck Driver: Case Management Appointment Comment: [id number], [place] [address] Post Discharge Appointments Primary Care Physician Name Of Family Doctor: Dr. Lopez Contact Information Discharge Discharge [address]: [address] [place] [id number] CPT Code CPT Code 60667 (1) Schizophrenia Schizophrenia type: paranoid schizophrenia Qualified Code(s): F20.0 - Paranoid schizophrenia (2) Hypertension Hypertension type: essential hypertension Qualified Code(s): I10 - Essential (primary) hypertension
[2019-03-18] MEDS: cloNIDine HCL 0.1 MG TAB PO SCH (21:25)
[2019-03-18] MEDS: OLANZAPINE ZYDIS 10 MG ORALLY DIS. TAB PO SCH (21:25)
[2019-03-19] MEDS ORDERED: BENZTROPINE MESYLATE 0.5 MG TAB PO PRN (08:18)
[2019-03-19] MEDS: CYANOCOBALAMIN 500 MCG TABLET (VITAMIN B-12) PO SCH (08:55)
[2019-03-19] MEDS: NICOTINE 14 MG/24 HR PATCH TD SCH (08:55)
[2019-03-19] MEDS: MULTIVITAMIN TAB PO SCH (08:55)
[2019-03-19] MEDS: MAGNESIUM OXIDE 400 MG TAB PO SCH (08:55)
[2019-03-19] MEDS: PYRIDOXINE HCL 50 MG TAB PO SCH (08:56)
--- NOTE | 2019-03-19 16:32 | Psychiatric Progress Note ---
Date of Service March 19, 2019 Impression / Recommendations Impression 73-year-old male with schizophrenia who lives at the [facility] and was admitted involuntarily on 02/24/2019 with delusions, hallucinations, irritability and erratic behavior after rapid decompensation 1 -2 weeks after he stopped taking his antipsychotic. He was found in a dumpster, floridly delusional, and was combative with [facility] staff. He refused resumption of olanzapine, but ultimately agreed to take aripiprazole. It initially appeared that he was responding favorably, although not completely, to the addition of aripiprazole. Because of the patient's long history of dangerous behaviors in the community associated with nonadherence with psychiatric medications, the patient's behavioral health unit treatment team and his outpatient providers recommended a depo antipsychotic medication, and he initially agreed to Abilify Maintena; however, refused it when staff attempted to administer the injection, and subsequently became much more oppositional and hostile towards staff. He is now completely uncooperative with treatment, refusing all groups, refusing to talk with staff or clinicians, and refusing mouth checks after Zyprexa Zydis, which he states he does not need. He is refusing a long-acting injectable, and has refused to meet with his outpatient mattress spring encaser and longterm staff. He has a clear history of dangerous behaviors during periods of nonadherence with medications in the community, and inpatient psychiatric hospitalization remains the least intensive, least restrictive level of care consistent with the patient's clinical and safety needs. (1) Schizophrenia: He has tried o/10 - Continue home medication regimen - as refusing offerings of his antipsychotic, will likely require olanzapine IM (or alternative agent) over objection, given clear evidence of paranoia and delusional thought process - previously stabilized on this medication - Pt agreeable to taking all other medications, with exception of antipsychotic as mentioned above - Admitted to a locked inpatient behavioral health unit, on q15 minute safety checks - Encourage medication initiation/adjustments as indicated - Encourage participation in group and recreational therapies - Gather collateral information from outpatient providers and longterm staff - Suggest family meeting to involve outpatient supports in safety planning - Reschedule appropriate aftercare appointments 02/26 -Patient indicates willingness to sign a release for the [facility] longterm, will get collateral from their staff. -File for 303 involuntary commitment to be held tomorrow. -Recommend medications over objection, with an IM Zyprexa backup for refusal of oral medication. Involve outpatient treatment team to discuss ways to improve stability and compliance; consider long-acting injectable antipsychotic. -Order fasting labs for monitoring on an atypical antipsychotic once patient is more cooperative. 02/27 -The patient was retrained at his involuntary commitment hearing (303) this morning. -He has continuously and consistently refused psychiatric medications to date. However, today, when I explained that that a option that might become necessary in his case is medication over objection, and an intramuscular form, the patient said that he understood and that he would try medications that I prescribe. His initial preference would be olanzapine, but because olanzapine is not available in a long acting depot form, we would first like to try aripiprazole. He indicates that he is taken aripiprazole in the past and has been able to tolerate it, although he does not believe that it has been particularly helpful. -A trial dose of aripiprazole 15 mg by mouth, as a one-time dose, has been ordered and he assessed for efficacy. 02/28 -Appears to be tolerating initiation of Abilify so far. Remains delusional, paranoid. May consider further titration tomorrow -Aricept discontinued at patient's request on 02/27/2019. The medication has not been demonstrated to be efficacious for cognitive impairment associated with long-standing schizophrenia however we should be vigilant for slowing of mentation following discontinuation. 03/01 Patient fixated and irrational regarding access to clothing item as above today. Hospital environment becoming incorporated and delusions. Consider possibility that the aripiprazole is contributing to activation. We will increase to 20 mg tomorrow and also start Risperdal 1 mg p.o. twice daily as as needed. 03/02 - Continue with aripiprazole at 20mg daily, consider need for further titration - if tolerating and effective, eventual plan will be for conversion to Abilify Maintena - Pt has not yet utilized risperidone 03/03 - Increase aripiprazole to 25mg (equivalent to 30mg pill) and change to liquid formulation to decrease risk of cheeking/nonadherence, as patient does not believe he needs medication and had been noncompliant prior to hospitalization. - Fasting glucose and lipid profile ordered for tomorrow for monitoring on an atypical antipsychotic. - Private room due to psychosis, agitation, and inappropriate disrobing/sexual behavior. - Meeting with M and [facility] staff when patient able to tolerate. 03/04 - Continue aripiprazole 25mg liquid (30mg pill equivalent) and continue to observe for improvement in thought process/content - consider conversion to Maintena if effective, versus trial of another agent if improvement remains limited - Fasting labs reviewed - all values WNL - Continue medically necessary private room - Request meeting with [facility] staff, in order to obtain details about patient's proximity to baseline 03/05 -Patient refusing liquid aripiprazole, but agrees to take the pill: Ordered 30 mg daily. -Schedule meeting with his mattress spring encaser, [facility] and psych rehab staff. Consider involuntary outpatient commitment at the time of discharge. 03/06 -The patient has improved in that he is more reality based at this point. He continues to harbor fixed, systematized delusions, but is generally able to focus on reality based topics. -Although the patient tells me that he does not feel that aripiprazole has been effective, he is able to accept my opinion in the opinion of the staff that he has improved in response to aripiprazole. -The patient's main objection to aripiprazole oral solution is that he does not like the way it tastes, and within this context, he tells us that he is willing to accept Abilify Maintenaand requests that it be injected into his buttock. Abilify Maintena 300 mg IM ordered, and oral Abilify discontinued. We will resume oral Abilify if the patient subsequently changes his mind and refuses the injection. 03/07 resuming abilfiy oral given his refusal of FARAH form of abilify 03/08 is taking abilify po form but refusing abilify maintena form. advise close monitoring for potential of checking given pt's tendency to not want to take medications. 03/09 -The patient is flatly refusing to take aripiprazole in the form of Abilify Maintena. He is also been hesitant to take oral Abilify, but has been doing so. -The patient's lack of cooperation is thought possibly to be related to an un-expressed desire to not be discharged back to the community. He told me today that he left his meeting with his community providers after a few seconds because "just the side of them made me extremely anxious. My pulse elevated to 140." Later, he told me that he was still anxious about it and his pulse was "still around 130." The patient allowed me to take his pulse, and it was approximately 76. At that point he said, "did I say pulse? I meant systolic blood pressure." And when I pointed out that his systolic blood pressure of 130 is not considered to be a particular concern, he said "I mean diastolic." -Our hope had been that the patient would agree to accept a Depo form of medication. He was refusing Haldol Decanoate because of various side effects. Risperidone constant was ruled out as a first-line Depo medication because of the frequency of administration (the patient tends to get into power struggles over medications) and because he says that he is sensitive to "big needles." Invega would be an option, but currently the patient is being so uncooperative that our concern would be that he would cheek the oral tablets that we would have to give him first. Accordingly, the new strategy will be to discontinue Abilify, and resume olanzapine with olanzapine IM over objection if necessary. We will begin the olanzapine Zydis 20 mg at bedtime 03/10 -The patient took the prescribed dose of olanzapine Zydis 20 mg at bedtime last night. Today, he tells me that it "did not help at all." However, staff report that he has been somewhat more agreeable, more pleasant, and less paranoid today. -As he has with other providers, today he told me that I should have given him olanzapine 5 mg "to start", and I explained that he was already on olanzapine 20 mg when he came into the hospital and we know that he is able to tolerate that dose. He tells me that he did, in fact tolerate the dose and is not aware of any side effects, but, somewhat illogically, insisted that the dose was "too high for a starting dose." 03/11 - Continue current medication regimen at this time - olanzapine 20mg daily - Encourage participation in the milieu and in group programming as tolerated 03/12 -Continue current medication regimen. The patient's condition has not yet improved. -The patient does participate in select groups, but often tends to be disruptive. 03/13 -Today, the patient seems to be somewhat more cooperative and less frankly delusional. It was possible to engage in a mostly reality based conversation for 5 or 10 minutes at a time. Also, although he was unhappy with me when I refused to provide him with a dose of Valium for anxiety, he was able to remain pleasant and calm at this time, did not storm from the room." 03/14 and 03/15 -no change in medication will work on therapeutic alliance given patient is not participating 03/16 -304 involuntary commitment granted. -Patient remains completely uncooperative with treatment, refused his Zyprexa Zydis last evening, but then ultimately took it before he received the injection. I have a high suspicion for cheeking of antipsychotic medication, and we will continue to be vigilant with mouth checks, and work towards a long- acting injectable. 03/17 -Patient has been on Zyprexa 20 mg at bedtime for 1 week, with limited response. He is refusing to discuss other medication options. Per records, he has been prescribed up to 30 mg olanzapine in the past, so will increase his dose to this previously tolerated dose, as it is 1 of the few medications he has been willing to take. Continue IM backup for refusal, and Zyprexa Zydis fo rmulation to decrease risk of cheeking. He is not compliant with mouth checks, but have asked staff to try to observe him for 10 minutes after taking the Zydis to ensure he is not spitting it out before it dissolves. 03/18 -Continue Zyprexa Zydis 30 mg at bedtime with IM backup. Consider switch to a different medication (?oral paliperidone with IM backup) if irritability and agitation continues. He has tried virtually every atypical antipsychotic and reports none of them were effective (although some trials were short due to nonadherence) and has a history of dystonia on haloperidol. Clozapine would be a reasonable choice, but he has been unwilling to even discuss medication options. -Consider some component of cognitive decline which could be contributing to his worsening presentation and will need to be monitored and worked up further once he is more psychiatrically stable. -Refer to [facility] in the event that he does not improve and long-term inpatient treatment is needed. 03/19 - Proceed with [facility] referral. (2) Substance abuse: 02/25 - Pt has reported history of substance abuse, and recommendation has consistently been for avoidance of substances with significant abuse potential. - PDMP queried - most recent prescriptions below - lorazepam 0.5mg #60 tabs for 30 day supply - Dr. Alves - filled 02/12/2019 - alprazolam 0.5mg #90 tabs for 30 day supply - Dr. Lopez - filled 01/16/2019 - temazepam 30mg #30 caps for 30 day supply - Dr. Lopez - filled 01/16/2019 - Will continue lorazepam 0.5mg BID prn on admission, as only medication that is seemingly active - toxicology screen is negative for benzodiazepines, which questions if he has been taking the medication appropriately - Ideally will taper and discontinue the lorazepam, as recommendation remains that substances with abuse potential be avoided 02/26 -The patient's outpatient providers, during a meeting this morning, report that the patient tends to successfully convince physicians to prescribe benzodiazepines for him and that, in the past, he has abused him to the degree that he is practically obtunded. 02/27 -A repeat check of the PDMP reveals that the patient is consistently being prescribed lorazepam 0.5 mg twice daily (number 60/month) by a Dr. Brent Alves. He is also being prescribed alprazolam 0.[address] mg [address] Jeff Lopez, with the most recent previous prescription of alprazolam being on 01/16/[address] Lopez also prescribed temazepam 30 mg capsules #30 on 01/16/2019. According to his residential providers, no temazepam capsules were found among the patient's belongings. His most recent prescription for lorazepam 0.5 mg tablets was filled on 02/12/2019. 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 In the past, he reportedly has used clonazepam and temazepam. -I advised the patient that because of his history of misuse of benzodiazepines we would not be prescribing benzodiazepines during his hospital stay. An as needed order for lorazepam has not been used during hospital stay, and I discontinued the order today. 03/02 - Will need to coordinate care with his PCP and outpatient psychiatrist prior to discharge regarding the above. 03/04 - Charge nurse spoke with the above offices regarding concern for continued benzodiazepine prescriptions - Records will be faxed to their offices on discharge, as all benzodiazepines were discontinued during this hospitalization 03/06 -The patient did not request benzodiazepines and did not complain of anxiety today. I suggested to him that perhaps Abilify is also helping with anxiety in his case, and he responded by saying "perhaps." 03/09 -Today, the patient is insisting that what he needs is "benzodiazepines," and explains that the reason he "needs" benzodiazepines is that he has "benzodiazepine receptors," and that he is the only medications that work. He is unable to process warnings about the risks of benzodiazepines in the elderly, including increased risk of falls and mortality. Clearly, the patient is seeking benzodiazepines and has no insight into the associated risks. He also insists that he has never had trouble with benzodiazepines in the past, although there is well-documented of this. 03/10 -Today, the patient repeated his insistence that he needs benzodiazepines and that benzodiazepines are the only medications that work because he has "benzodiazepine receptors." After being told that everyone has central nervous system receptors to which benzodiazepines may attach, he replied, "That may be, but some of people need to have benzodiazepines forearm benzodiazepine receptors. 03/12 -Continues to request Benzodiazepines. 03/13 -Requests Valium for his "benzodiazepines." (3) Hypertension: 02/25 - Continue home dose of clonidine 0.1mg qHS 03/01 Watch mildly elevated blood pressures as patient has been refusing clonidine 03/03 - BP normal past two days, and low today 03/10 -The patient's blood pressure today was 136/73. His pulse was 71 03/14 - elevated BP it is not urgent but will need monitored. 03/15 - BP WNL Inventory Assets Strengths: -Intelligence. Support of community providers. Well educated. Needs: Resume symptom-stabilizing medication regimen, coordinate care with longterm Risk Factors Assessment Male: Yes : Yes Do You Have Access To A Gun?: No Health Problems: Yes Mental Health Diagnoses: Yes Substance Use Disorders: Yes Protective Factors Assessment [employer] Beliefs: No : No Responsible for Young Children: No Employed: No Stable Relationships: No Supportive Family: No Good Rapport with Provider: No Interval History Identifying Information SCOTT ROBERTO is a 73-year-old M who currently lives at a [facility] in [place]. Pt has a history of schizophrenia and is known to our unit from several previous admissions, most recently in 09/2016. Pt and was admitted on 02/24/19 16:40 on a 302 involuntary commitment for exacerbation of schizophrenia and heightened paranoia resulting in belief he needed to hide in a dumpster to seek refuge from impending bombings. Pt was found by [facility] staff and brought to the ED by police. He is on a 304 involuntary commitment as of 03/16/19. Chief Complaint "Get out of here!" Review of Systems Sleep Information Total Hours of Sleep: 6.25 Sleep Comments: pt requested to have his lights on during the night. pt appeared to be asleep@0030 and thereafter. pt on q-15 minute checks Meal Information Percent Meal Consumed - Breakfast: 90 Percent Meal Consumed - Lunch: 50 Percent Meal Consumed - Dinner: 90 Nutrition Comment: per meal record Subjective Subjective Patient was seen & assessed and interval progress reviewed with Nursing and social work. Staff report he continues to remain in his room, refuse all groups, and does not interact with staff or peers. Attempted to meet with him, and he yelled to get out of his room, then rushed at the door and slammed it. Reviewed status of [facility] referral with social work: [facility] wondered if he could instead be referred to a [place], and requested a neurological consult for dementia workup. Advised that he cannot go to a [place] involuntarily, and is not willing to look at other housing options, and that dementia cannot be diagnosed while psychotic and agitated. Agree with neurological assessment to be done once psychiatrically stable. Physical Exam Psychiatric Orientation: alert; + uncooperative Agitated Thin WM, dressed in the same clothes - black stretch pants, sports sandals intense staring Motor Behavior: steady gait and station rushed aggressively at door and slammed it angry, loud Affect: + irritable affect, + angry affect and + constricted affect Insight: + severely impaired insight Judgement: + severely impaired judgement Vital Signs (Past 24 Hours) Last Vital Signs Temp 36.4 C L 03/19/19 06:00 Pulse 97 H 03/19/19 06:36 Resp 16 03/19/19 06:00 BP 105/70 03/19/19 06:36 Pulse Ox 96 02/24/19 08:10 Results & Data Current Inpatient Medications Current Inpatient Medications: Current Inpatient Medications Acetaminophen (Tylenol) 650 mg PO Q4H PRN PRN Reason: Headache or Minor Fever Stop: 03/26/19 16:39 Al Hydrox/Mg Hydrox/Simethicone (Maalox) 30 ml PO Q4H PRN PRN Reason: GI Upset Stop: 03/26/19 16:39 Benztropine Mesylate (Cogentin) 0.5 mg PO BID PRN PRN Reason: dystonia Stop: 03/26/19 20:59 Bismuth Subsalicylate (Kaopectate) 15 ml PO PRN PRN PRN Reason: Loose Stool Stop: 03/26/19 16:39 Clonidine HCl (Catapres) 0.1 mg PO HS MAG Stop: 03/26/19 20:59 Last Admin: 03/18/19 21:25 Dose: 0.1 mg Documented by: Cyanocobalamin (Vitamin B-12) 500 mcg PO DAILY MAG Stop: 03/27/19 08:59 Last Admin: 03/19/19 08:55 Dose: Not Given Documented by: Hydroxyzine HCl (Vistaril) 25 mg PO Q4H PRN PRN Reason: Anxiety Stop: 03/26/19 16:39 Hydroxyzine HCl (Vistaril) 50 mg PO HSZ PRN PRN Reason: Insomnia Stop: 03/26/19 16:39 Magnesium Hydroxide (Milk Of Magnesia) 30 ml PO DAILY PRN PRN Reason: Heartburn Stop: 03/26/19 16:39 Magnesium Oxide (Mag-Ox) 400 mg PO DAILY MAG Stop: 03/27/19 08:59 Last Admin: 03/19/19 08:55 Dose: Not Given Documented by: Miscellaneous (Remove Nicoderm Patch) 1 ea N/A HS MAG Stop: 03/26/19 20:59 Last Admin: 03/18/19 21:30 Dose: Not Given Documented by: Multivitamins (Multivitamin Tab) 1 tab PO DAILY MAG Stop: 03/27/19 08:59 Last Admin: 03/19/19 08:55 Dose: Not Given Documented by: Nicotine (Nicoderm Cq) 14 mg TD QAM MAG Stop: 03/27/19 08:59 Last Admin: 03/19/19 08:55 Dose: Not Given Documented by: Olanzapine (Zyprexa) 10 mg IM HS PRN PRN Reason: Undecided Stop: 04/08/19 21:59 Olanzapine (Zyprexa Zydis Od) 30 mg PO HS MAG Stop: 04/16/19 21:59 Last Admin: 03/18/19 21:25 Dose: 30 mg Documented by: Pyridoxine HCl (Vitamin B-6) 100 mg PO DAILY AMG Stop: 03/27/19 08:59 Last Admin: 03/19/19 08:56 Dose: Not Given Documented by: Risperidone (Risperdal M) 1 mg PO BID PRN PRN Reason: psychosis Stop: 03/31/19 10:36 Sodium Chloride ([place] Nasal) 1 - 2 sprays NA PRN PRN PRN Reason: Nasal Dryness/Congestion Stop: 03/26/19 16:39 Mental Health & Subst Abuse Tx Therapist Name of Therapist: Denies [employer] Name of Radio Time Buyer: Shruti Lopez Phone Number for Radio Time Buyer: Case Management Appointment Comment: [phone], [place] [address] Post Discharge Appointments Primary Care Physician Name Of Family Doctor: Dr. Lopez Contact Information Discharge Discharge Address: [address] [place] [id number] CPT Code CPT Code 16208 (1) Schizophrenia Schizophrenia type: paranoid schizophrenia Qualified Code(s): F20.0 - Paranoid schizophrenia (2) Hypertension Hypertension type: essential hypertension Qualified Code(s): I10 - Essential (primary) hypertension
[2019-03-19] MEDS: cloNIDine HCL 0.1 MG TAB PO SCH (20:32)
[2019-03-19] MEDS: OLANZAPINE ZYDIS 10 MG ORALLY DIS. TAB PO SCH (20:33)
[2019-03-20] MEDS: MAGNESIUM OXIDE 400 MG TAB PO SCH (09:24)
[2019-03-20] MEDS: MULTIVITAMIN TAB PO SCH (09:24)
[2019-03-20] MEDS: PYRIDOXINE HCL 50 MG TAB PO SCH (09:24)
[2019-03-20] MEDS: CYANOCOBALAMIN 500 MCG TABLET (VITAMIN B-12) PO SCH (09:24)
[2019-03-20] MEDS: NICOTINE 14 MG/24 HR PATCH TD SCH (09:28)
--- NOTE | 2019-03-20 09:49 | Psychiatric Progress Note ---
Date of Service March 20, 2019 Impression / Recommendations Impression 73-year-old male with schizophrenia who lives at the [facility] and was admitted involuntarily on 02/24/2019 with delusions, hallucinations, irritability and erratic behavior after rapid decompensation 1 -2 weeks after he stopped taking his antipsychotic. He was found in a dumpster, floridly delusional, and was combative with [facility] staff. He refused resumption of olanzapine, but ultimately agreed to take aripiprazole. It initially appeared that he was responding favorably, although not completely, to the addition of aripiprazole. Because of the patient's long history of dangerous behaviors in the community associated with nonadherence with psychiatric medications, the patient's behavioral health unit treatment team and his outpatient providers recommended a depo antipsychotic medication, and he initially agreed to Abilify Maintena; however, refused it when staff attempted to administer the injection, and subsequently became much more oppositional and hostile towards staff. He is now completely uncooperative with treatment, refusing all groups, refusing to talk with staff or clinicians, and refusing mouth checks after Zyprexa Zydis, which he states he does not need. He is refusing a long-acting injectable, and has refused to meet with his outpatient case liner and nursing home staff. He has a clear history of dangerous behaviors during periods of nonadherence with medications in the community, and inpatient psychiatric hospitalization remains the least intensive, least restrictive level of care consistent with the patient's clinical and safety needs. We are planning to gather information for a referral to [facility] - but patient has been refusing two attempts at an EKG and chest X-ray. Will continue to offer, but due to the severity of the patient's condition, it is not likely he will comply. (1) Schizophrenia: He has tried o/10 - Continue home medication regimen - as refusing offerings of his antipsychotic, will likely require olanzapine IM (or alternative agent) over objection, given clear evidence of paranoia and delusional thought process - previously stabilized on this medication - Pt agreeable to taking all other medications, with exception of antipsychotic as mentioned above - Admitted to a locked inpatient behavioral health unit, on q15 minute safety checks - Encourage medication initiation/adjustments as indicated - Encourage participation in group and recreational therapies - Gather collateral information from outpatient providers and nursing home staff - Suggest family meeting to involve outpatient supports in safety planning - Reschedule appropriate aftercare appointments 02/26 -Patient indicates willingness to sign a release for the [facility] nursing [facility], will get collateral from their staff. -File for 303 involuntary commitment to be held tomorrow. -Recommend medications over objection, with an IM Zyprexa backup for refusal of oral medication. Involve outpatient treatment team to discuss ways to improve stability and compliance; consider long-acting injectable antipsychotic. -Order fasting labs for monitoring on an atypical antipsychotic once patient is more cooperative. 02/27 -The patient was retrained at his involuntary commitment hearing (303) this morning. -He has continuously and consistently refused psychiatric medications to date. However, today, when I explained that that a option that might become necessary in his case is medication over objection, and an intramuscular form, the patient said that he understood and that he would try medications that I prescribe. His initial preference would be olanzapine, but because olanzapine is not available in a long acting depot form, we would first like to try aripiprazole. He indicates that he is taken aripiprazole in the past and has been able to tolerate it, although he does not believe that it has been particularly helpful. -A trial dose of aripiprazole 15 mg by mouth, as a one-time dose, has been ordered and he assessed for efficacy. 02/28 -Appears to be tolerating initiation of Abilify so far. Remains delusional, paranoid. May consider further titration tomorrow -Aricept discontinued at patient's request on 02/27/2019. The medication has not been demonstrated to be efficacious for cognitive impairment associated with long-standing schizophrenia however we should be vigilant for slowing of mentation following discontinuation. 03/01 Patient fixated and irrational regarding access to clothing item as above today. Hospital environment becoming incorporated and delusions. Consider possibility that the aripiprazole is contributing to activation. We will increase to 20 mg tomorrow and also start Risperdal 1 mg p.o. twice daily as as needed. 03/02 - Continue with aripiprazole at 20mg daily, consider need for further titration - if tolerating and effective, eventual plan will be for conversion to Abilify Maintena - Pt has not yet utilized risperidone 03/03 - Increase aripiprazole to 25mg (equivalent to 30mg pill) and change to liquid formulation to decrease risk of cheeking/nonadherence, as patient does not believe he needs medication and had been noncompliant prior to hospitalization. - Fasting glucose and lipid profile ordered for tomorrow for monitoring on an atypical antipsychotic. - Private room due to psychosis, agitation, and inappropriate disrobing/sexual behavior. - Meeting with [facility] and [facility] staff when patient able to tolerate. 03/04 - Continue aripiprazole 25mg liquid (30mg pill equivalent) and continue to observe for improvement in thought process/content - consider conversion to Maintena if effective, versus trial of another agent if improvement remains limited - Fasting labs reviewed - all values WNL - Continue medically necessary private room - Request meeting with [facility] staff, in order to obtain details about patient's proximity to baseline 03/05 -Patient refusing liquid aripiprazole, but agrees to take the pill: Ordered 30 mg daily. -Schedule meeting with his case liner, [facility] and psych rehab staff. Consider involuntary outpatient commitment at the time of discharge. 03/06 -The patient has improved in that he is more reality based at this point. He continues to harbor fixed, systematized delusions, but is generally able to focus on reality based topics. -Although the patient tells me that he does not feel that aripiprazole has been effective, he is able to accept my opinion in the opinion of the staff that he has improved in response to aripiprazole. -The patient's main objection to aripiprazole oral solution is that he does not like the way it tastes, and within this context, he tells us that he is willing to accept Abilify Maintenaand requests that it be injected into his buttock. Abilify Maintena 300 mg IM ordered, and oral Abilify discontinued. We will resume oral Abilify if the patient subsequently changes his mind and refuses the injection. 03/07 resuming abilfiy oral given his refusal of FARAH form of abilify 03/08 is taking abilify po form but refusing abilify maintena form. advise close monitoring for potential of checking given pt's tendency to not want to take medications. 03/09 -The patient is flatly refusing to take aripiprazole in the form of Abilify Maintena. He is also been hesitant to take oral Abilify, but has been doing so. -The patient's lack of cooperation is thought possibly to be related to an un-expressed desire to not be discharged back to the community. He told me today that he left his meeting with his community providers after a few seconds because "just the side of them made me extremely anxious. My pulse elevated to 140." Later, he told me that he was still anxious about it and his pulse was "still around 130." The patient allowed me to take his pulse, and it was approximately 76. At that point he said, "did I say pulse? I meant systolic blood pressure." And when I pointed out that his systolic blood pressure of 130 is not considered to be a particular concern, he said "I mean diastolic." -Our hope had been that the patient would agree to accept a Depo form of medication. He was refusing Haldol Decanoate because of various side effects. Risperidone constant was ruled out as a first-line Depo medication because of the frequency of administration (the patient tends to get into power struggles over medications) and because he says that he is sensitive to "big needles." Invega would be an option, but currently the patient is being so uncooperative that our concern would be that he would cheek the oral tablets that we would have to give him first. Accordingly, the new strategy will be to discontinue Abilify, and resume olanzapine with olanzapine IM over objection if necessary. We will begin the olanzapine Zydis 20 mg at bedtime 03/10 -The patient took the prescribed dose of olanzapine Zydis 20 mg at bedtime last night. Today, he tells me that it "did not help at all." However, staff report that he has been somewhat more agreeable, more pleasant, and less paranoid today. -As he has with other providers, today he told me that I should have given him olanzapine 5 mg "to start", and I explained that he was already on olanzapine 20 mg when he came into the hospital and we know that he is able to tolerate that dose. He tells me that he did, in fact tolerate the dose and is not aware of any side effects, but, somewhat illogically, insisted that the dose was "too high for a starting dose." 03/11 - Continue current medication regimen at this time - olanzapine 20mg daily - Encourage participation in the milieu and in group programming as tolerated 03/12 -Continue current medication regimen. The patient's condition has not yet improved. -The patient does participate in select groups, but often tends to be disruptive. 03/13 -Today, the patient seems to be somewhat more cooperative and less frankly delusional. It was possible to engage in a mostly reality based conversation for 5 or 10 minutes at a time. Also, although he was unhappy with me when I refused to provide him with a dose of Valium for anxiety, he was able to remain pleasant and calm at this time, did not storm from the room." 03/14 and 03/15 -no change in medication will work on therapeutic alliance given patient is not participating 03/16 -304 involuntary commitment granted. -Patient remains completely uncooperative with treatment, refused his Zyprexa Zydis last evening, but then ultimately took it before he received the injection. I have a high suspicion for cheeking of antipsychotic medication, and we will continue to be vigilant with mouth checks, and work towards a long- acting injectable. 03/17 -Patient has been on Zyprexa 20 mg at bedtime for 1 week, with limited response. He is refusing to discuss other medication options. Per records, he has been prescribed up to 30 mg olanzapine in the past, so will increase his dose to this previously tolerated dose, as it is 1 of the few medications he has been willing to take. Continue IM backup for refusal, and Zyprexa Zydis formulation to decrease risk of cheeking. He is not compliant with mouth checks, but have asked staff to try to observe him for 10 minutes after taking the Zydis to ensure he is not spitting it out before it dissolves. 03/18 -Continue Zyprexa Zydis 30 mg at bedtime with IM backup. Consider switch to a different medication (?oral paliperidone with IM backup) if irritability and agitation continues. He has tried virtually every atypical antipsychotic and reports none of them were effective (although some trials were short due to no nadherence) and has a history of dystonia on haloperidol. Clozapine would be a reasonable choice, but he has been unwilling to even discuss medication options. -Consider some component of cognitive decline which could be contributing to his worsening presentation and will need to be monitored and worked up further once he is more psychiatrically stable. -Refer to [facility] in the event that he does not improve and long-term inpatient treatment is needed. 03/19 - Proceed with [facility] referral. 03/20 - Continue current medication regimen; patient refused EKG and CXR yesterday - refused again today - Continue attempts to gather information to make a referral to [facility] (2) Substance abuse: 02/25 - Pt has reported history of substance abuse, and recommendation has consistently been for avoidance of substances with significant abuse potential. - PDMP queried - most recent prescriptions below - lorazepam 0.5mg #60 tabs for 30 day supply - Dr. Alves - filled 02/12/2019 - alprazolam 0.5mg #90 tabs for 30 day supply - Dr. Lopez - filled 01/16/2019 - temazepam 30mg #30 caps for 30 day supply - Dr. Lopez - filled 01/16/2019 - Will continue lorazepam 0.5mg BID prn on admission, as only medication that is seemingly active - toxicology screen is negative for benzodiazepines, which questions if he has been taking the medication appropriately - Ideally will taper and discontinue the lorazepam, as recommendation remains that substances with abuse potential be avoided 02/26 -The patient's outpatient providers, during a meeting this morning, report that the patient tends to successfully convince physicians to prescribe benzodiazepines for him and that, in the past, he has abused him to the degree that he is practically obtunded. 02/27 -A repeat check of the PDMP reveals that the patient is consistently being prescribed lorazepam 0.5 mg twice daily (number 60/month) by a Dr. Brent Alves. He is also being prescribed alprazolam 0.[address] mg [address] Jeff Lopez, with the most recent previous prescription of alprazolam being on 01/16/[address] Lopez also prescribed temazepam 30 mg capsules #30 on 01/16/2019. According to his residential providers, no temazepam capsules were found among the patient's belongings. His most recent prescription for lorazepam 0.5 mg tablets was filled on 02/12/2019. 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 In the past, he reportedly has used clonazepam and temazepam. -I advised the patient that because of his history of misuse of benzodiazepines we would not be prescribing benzodiazepines during his hospital stay. An as needed order for lorazepam has not been used during hospital stay, and I discontinued the order today. 03/02 - Will need to coordinate care with his PCP and outpatient psychiatrist prior to discharge regarding the above. 03/04 - Charge nurse spoke with the above offices regarding concern for continued benzodiazepine prescriptions - Records will be faxed to their offices on discharge, as all benzodiazepines were discontinued during this hospitalization 03/06 -The patient did not request benzodiazepines and did not complain of anxiety today. I suggested to him that perhaps Abilify is also helping with anxiety in his case, and he responded by saying "perhaps." 03/09 -Today, the patient is insisting that what he needs is "benzodiazepines," and explains that the reason he "needs" benzodiazepines is that he has "benzodiazepine receptors," and that he is the only medications that work. He is unable to process warnings about the risks of benzodiazepines in the elderly, including increased risk of falls and mortality. Clearly, the patient is seeking benzodiazepines and has no insight into the associated risks. He also insists that he has never had trouble with benzodiazepines in the past, although there is well-documented of this. 03/10 -Today, the patient repeated his insistence that he needs benzodiazepines and that benzodiazepines are the only medications that work because he has "benzodiazepine receptors." After being told that everyone has central nervous system receptors to which benzodiazepines may attach, he replied, "That may be, but some of people need to have benzodiazepines forearm benzodiazepine receptors. 03/12 -Continues to request Benzodiazepines. 03/13 -Requests Valium for his "benzodiazepines." (3) Hypertension: 02/25 - Continue home dose of clonidine 0.1mg qHS 03/01 Watch mildly elevated blood pressures as patient has been refusing clonidine 03/03 - BP normal past two days, and low today 03/10 -The patient's blood pressure today was 136/73. His pulse was 71 03/14 - elevated BP it is not urgent but will need monitored. 03/15 - BP WNL Inventory Assets Strengths: -Intelligence. Support of community providers. Well educated. Needs: Resume symptom-stabilizing medication regimen, coordinate care with nursing home Risk Factors Assessment Male: Yes : Yes Do You Have Access To A Gun?: No Health Problems: Yes Mental Health Diagnoses: Yes Substance Use Disorders: Yes Protective Factors Assessment Orthodoxy Beliefs: No : No Responsible for Young Children: No Employed: No Stable Relationships: No Supportive Family: No Good Rapport with Provider: No Interval History Identifying Information SCOTT ROBERTO is a 73-year-old M who currently lives at a [facility] in [place]. Pt has a history of schizophrenia and is known to our unit from several previous admissions, most recently in 09/2016. Pt and was admitted on 02/24/19 16:40 on a 302 involuntary commitment for exacerbation of schizophrenia and heightened paranoia resulting in belief he needed to hide in a dumpster to seek refuge from impending bombings. Pt was found by [facility] staff and brought to the ED by police. He is on a 304 involuntary commitment as of 03/16/19. Review of Systems Notes Pt unwilling to participate in conversation, therefore unable to obtain accurate ROS Sleep Information Total Hours of Sleep: 7 Sleep Comments: pt on -15 minute checks Meal Information Percent Meal Consumed - Breakfast: 90 Percent Meal Consumed - Lunch: 50 Percent Meal Consumed - Dinner: 100 Nutrition Comment: per meal record Subjective Subjective Patient was seen & assessed and interval progress reviewed with Treatment Team. Staff reports the patient continues to demonstrate limited improvements. He continues to appear to be compliant with medications, but remains withdrawn and does not participate in groups. Pt was seen today to assess progress since admission. Pt was asked multiple questions, but did not verbally respond at any point to this provider - not even to return pleasantries. Pt was asked if he was giving this provider the "silent treatment", to which he did not initially respond - but then began nodding his head somewhat. Pt remained unwilling to speak with this provider, even after additional encouragement. Pt was asked if he had any needs or concerns, but did not acknowledge this question either. This provider revisited patient this afternoon to determine if patient would be willing to complete EKG and CXR ordered and refused yesterday. Pt states he is not, that "you can't do that." He states that the tests are not needed as he had them done during his admission at [facility] "4 months ago." Pt was informed the testing would need to be recent - and he again refused - turning to this provider and angrily stating - "You can't do that, I know who y ou are. Get out, NOW!" Physical Exam Psychiatric Orientation: alert; + uncooperative (and agitated ) Varies between avoiding eye contact altogether or episodes of very intense staring Motor Behavior: steady gait and station Speech: normal rate/rhythm/volume of speech (irritable tone; limited willingness to participate in conversation) Affect: + angry affect Insight: + severely impaired insight Judgement: + severely impaired judgement Vital Signs (Past 24 Hours) Last Vital Signs Temp 36.6 C 03/20/19 06:47 Pulse 71 03/20/19 06:48 Resp 18 03/20/19 06:47 BP 120/72 03/20/19 06:48 Pulse Ox 96 02/24/19 08:10 Results & Data Current Inpatient Medications Current Inpatient Medications: Current Inpatient Medications Acetaminophen (Tylenol) 650 mg PO Q4H PRN PRN Reason: Headache or Minor Fever Stop: 03/26/19 16:39 Al Hydrox/Mg Hydrox/Simethicone (Maalox) 30 ml PO Q4H PRN PRN Reason: GI Upset Stop: 03/26/19 16:39 Benztropine Mesylate (Cogentin) 0.5 mg PO BID PRN PRN Reason: dystonia Stop: 03/26/19 20:59 Bismuth Subsalicylate (Kaopectate) 15 ml PO PRN PRN PRN Reason: Loose Stool Stop: 03/26/19 16:39 Clonidine HCl (Catapres) 0.1 mg PO HS MAG Stop: 03/26/19 20:59 Last Admin: 03/19/19 20:32 Dose: 0.1 mg Documented by: Cyanocobalamin (Vitamin B-12) 500 mcg PO DAILY MAG Stop: 03/27/19 08:59 Last Admin: 03/20/19 09:24 Dose: 500 mcg Documented by: Hydroxyzine HCl (Vistaril) 25 mg PO Q4H PRN PRN Reason: Anxiety Stop: 03/26/19 16:39 Hydroxyzine HCl (Vistaril) 50 mg PO HSZ PRN PRN Reason: Insomnia Stop: 03/26/19 16:39 Magnesium Hydroxide (Milk Of Magnesia) 30 ml PO DAILY PRN PRN Reason: Heartburn Stop: 03/26/19 16:39 Magnesium Oxide (Mag-Ox) 400 mg PO DAILY MAG Stop: 03/27/19 08:59 Last Admin: 03/20/19 09:24 Dose: 400 mg Documented by: Miscellaneous (Remove Nicoderm Patch) 1 ea N/A HS MAG Stop: 03/26/19 20:59 Last Admin: 03/19/19 20:38 Dose: Not Given Documented by: Multivitamins (Multivitamin Tab) 1 tab PO DAILY MAG Stop: 03/27/19 08:59 Last Admin: 03/20/19 09:24 Dose: 1 tab Documented by: Nicotine (Nicoderm Cq) 14 mg TD QAM MAG Stop: 03/27/19 08:59 Last Admin: 03/20/19 09:28 Dose: Not Given Documented by: Olanzapine (Zyprexa) 10 mg IM HS PRN PRN Reason: Undecided Stop: 04/08/19 21:59 Olanzapine (Zyprexa Zydis Od) 30 mg PO HS MAG Stop: 04/16/19 21:59 Last Admin: 03/19/19 20:33 Dose: 30 mg Documented by: Pyridoxine HCl (Vitamin B-6) 100 mg PO DAILY MAG Stop: 03/27/19 08:59 Last Admin: 03/20/19 09:24 Dose: 100 mg Documented by: Risperidone (Risperdal M) 1 mg PO BID PRN PRN Reason: psychosis Stop: 03/31/19 10:36 Sodium Chloride ([place] Nasal) 1 - 2 sprays NA PRN PRN PRN Reason: Nasal Dryness/Congestion Stop: 03/26/19 16:39 Mental Health & Subst Abuse Tx Therapist Name of Therapist: Denies Gear Shaper Set Up Operator Name of Gear Shaper Set Up Operator: Shruti Lopez Phone Number for Gear Shaper Set Up Operator: Case Management Appointment Comment: [phone], [place] [address] Post Discharge Appointments Primary Care Physician Name Of Family Doctor: Dr. Lopez Contact Information Discharge Discharge Address: [address] [place] [address], [place] [address] CPT Code CPT Code 79058 (1) Schizophrenia Schizophrenia type: paranoid schizophrenia Qualified Code(s): F20.0 - Paranoid schizophrenia (2) Hypertension Hypertension type: essential hypertension Qualified Code(s): I10 - Essential (primary) hypertension
[2019-03-20] MEDS: cloNIDine HCL 0.1 MG TAB PO SCH (21:15)
[2019-03-20] MEDS: OLANZAPINE ZYDIS 10 MG ORALLY DIS. TAB PO SCH (21:17)
[2019-03-21] MEDS: MAGNESIUM HYDROXIDE SUSP 30 ML UDC PO PRN ×2 (09:02→15:14)
[2019-03-21] MEDS: CYANOCOBALAMIN 500 MCG TABLET (VITAMIN B-12) PO SCH (09:03)
[2019-03-21] MEDS: PYRIDOXINE HCL 50 MG TAB PO SCH (09:03)
[2019-03-21] MEDS: MAGNESIUM OXIDE 400 MG TAB PO SCH (09:03)
[2019-03-21] MEDS: MULTIVITAMIN TAB PO SCH (09:03)
[2019-03-21] MEDS: NICOTINE 14 MG/24 HR PATCH TD SCH (09:06)
--- NOTE | 2019-03-21 12:33 | Psychiatric Progress Note ---
Date of Service March 21, 2019 Impression / Recommendations Impression 73-year-old male with schizophrenia who lives at the [facility] and was admitted involuntarily on 02/24/2019 with delusions, hallucinations, irritability and erratic behavior after rapid decompensation 1 -2 weeks after he stopped taking his antipsychotic. He was found in a dumpster, floridly delusional, and was combative with [facility] staff. He refused resumption of olanzapine, but ultimately agreed to take aripiprazole. It initially appeared that he was responding favorably, although not completely, to the addition of aripiprazole. Because of the patient's long history of dangerous behaviors in the community associated with nonadherence with psychiatric medications, the patient's behavioral health unit treatment team and his outpatient providers recommended a depo antipsychotic medication, and he initially agreed to Abilify Maintena; however, refused it when staff attempted to administer the injection, and subsequently became much more oppositional and hostile towards staff. He is now completely uncooperative with treatment, refusing all groups, refusing to talk with staff or clinicians, and refusing mouth checks after Zyprexa Zydis, which he states he does not need. He is refusing a long-acting injectable, and has refused to meet with his outpatient community case manager and [facility] staff. He has a clear history of dangerous behaviors during periods of nonadherence with medications in the community, and inpatient psychiatric hospitalization remains the least intensive, least restrictive level of care consistent with the patient's clinical and safety needs. We are planning to gather information for a referral to [facility] - but patient has been refusing two attempts at an EKG and chest X-ray. Will continue to offer, but due to the severity of the patient's condition, it is not likely he will comply. (1) Schizophrenia: He has tried o/10 - Continue home medication regimen - as refusing offerings of his antipsychotic, will likely require olanzapine IM (or alternative agent) over objection, given clear evidence of paranoia and delusional thought process - previously stabilized on this medication - Pt agreeable to taking all other medications, with exception of antipsychotic as mentioned above - Admitted to a locked inpatient behavioral health unit, on q15 minute safety checks - Encourage medication initiation/adjustments as indicated - Encourage participation in group and recreational therapies - Gather collateral information from outpatient providers and [facility] staff - Suggest family meeting to involve outpatient supports in safety planning - Reschedule appropriate aftercare appointments 02/26 -Patient indicates willingness to sign a release for the [facility], will get collateral from their staff. -File for 303 involuntary commitment to be held tomorrow. -Recommend medications over objection, with an IM Zyprexa backup for refusal of oral medication. Involve outpatient treatment team to discuss ways to improve stability and compliance; consider long-acting injectable antipsychotic. -Order fasting labs for monitoring on an atypical antipsychotic once patient is more cooperative. 02/27 -The patient was retrained at his involuntary commitment hearing (303) this morning. -He has continuously and consistently refused psychiatric medications to date. However, today, when I explained that that a option that might become necessary in his case is medication over objection, and an intramuscular form, the patient said that he understood and that he would try medications that I prescribe. His initial preference would be olanzapine, but because olanzapine is not available in a long acting depot form, we would first like to try aripiprazole. He indicates that he is taken aripiprazole in the past and has been able to tolerate it, although he does not believe that it has been particularly helpful. -A trial dose of aripiprazole 15 mg by mouth, as a one-time dose, has been ordered and he assessed for efficacy. 02/28 -Appears to be tolerating initiation of Abilify so far. Remains delusional, paranoid. May consider further titration tomorrow -Aricept discontinued at patient's request on 02/27/2019. The medication has not been demonstrated to be efficacious for cognitive impairment associated with long-standing schizophrenia however we should be vigilant for slowing of mentation following discontinuation. 03/01 Patient fixated and irrational regarding access to clothing item as above today. Hospital environment becoming incorporated and delusions. Consider possibility that the aripiprazole is contributing to activation. We will increase to 20 mg tomorrow and also start Risperdal 1 mg p.o. twice daily as as needed. 03/02 - Continue with aripiprazole at 20mg daily, consider need for further titration - if tolerating and effective, eventual plan will be for conversion to Abilify Maintena - Pt has not yet utilized risperidone 03/03 - Increase aripiprazole to 25mg (equivalent to 30mg pill) and change to liquid formulation to decrease risk of cheeking/nonadherence, as patient does not believe he needs medication and had been noncompliant prior to hospitalization. - Fasting glucose and lipid profile ordered for tomorrow for monitoring on an atypical antipsychotic. - Private room due to psychosis, agitation, and inappropriate disrobing/sexual behavior. - Meeting with [facility] and [facility] staff when patient able to tolerate. 03/04 - Continue aripiprazole 25mg liquid (30mg pill equivalent) and continue to observe for improvement in thought process/content - consider conversion to Maintena if effective, versus trial of another agent if improvement remains limited - Fasting labs reviewed - all values WNL - Continue medically necessary private room - Request meeting with [facility] staff, in order to obtain details about patient's proximity to baseline 03/05 -Patient refusing liquid aripiprazole, but agrees to take the pill: Ordered 30 mg daily. -Schedule meeting with his community case manager, [facility] and psych rehab staff. Consider involuntary outpatient commitment at the time of discharge. 03/06 -The patient has improved in that he is more reality based at this point. He continues to harbor fixed, systematized delusions, but is generally able to focus on reality based topics. -Although the patient tells me that he does not feel that aripiprazole has been effective, he is able to accept my opinion in the opinion of the staff that he has improved in response to aripiprazole. -The patient's main objection to aripiprazole oral solution is that he does not like the way it tastes, and within this context, he tells us that he is willing to accept Abilify Maintenaand requests that it be injected into his buttock. Abilify Maintena 300 mg IM ordered, and oral Abilify discontinued. We will resume oral Abilify if the patient subsequently changes his mind and refuses the injection. 03/07 resuming abilfiy oral given his refusal of FARAH form of abilify 03/08 is taking abilify po form but refusing abilify maintena form. advise close monitoring for potential of checking given pt's tendency to not want to take medications. 03/09 -The patient is flatly refusing to take aripiprazole in the form of Abilify Maintena. He is also been hesitant to take oral Abilify, but has been doing so. -The patient's lack of cooperation is thought possibly to be related to an un-expressed desire to not be discharged back to the community. He told me today that he left his meeting with his community providers after a few seconds because "just the side of them made me extremely anxious. My pulse elevated to 140." Later, he told me that he was still anxious about it and his pulse was "still around 130." The patient allowed me to take his pulse, and it was approximately 76. At that point he said, "did I say pulse? I meant systolic blood pressure." And when I pointed out that his systolic blood pressure of 130 is not considered to be a particular concern, he said "I mean diastolic." -Our hope had been that the patient would agree to accept a Depo form of medication. He was refusing Haldol Decanoate because of various side effects. Risperidone constant was ruled out as a first-line Depo medication because of the frequency of administration (the patient tends to get into power struggles over medications) and because he says that he is sensitive to "big needles." Invega would be an option, but currently the patient is being so uncooperative that our concern would be that he would cheek the oral tablets that we would have to give him first. Accordingly, the new strategy will be to discontinue Abilify, and resume olanzapine with olanzapine IM over objection if necessary. We will begin the olanzapine Zydis 20 mg at bedtime 03/10 -The patient took the prescribed dose of olanzapine Zydis 20 mg at bedtime last night. Today, he tells me that it "did not help at all." However, staff report that he has been somewhat more agreeable, more pleasant, and less paranoid today. -As he has with other providers, today he told me that I should have given him olanzapine 5 mg "to start", and I explained that he was already on olanzapine 20 mg when he came into the hospital and we know that he is able to tolerate that dose. He tells me that he did, in fact tolerate the dose and is not aware of any side effects, but, somewhat illogically, insisted that the dose was "too high for a starting dose." 03/11 - Continue current medication regimen at this time - olanzapine 20mg daily - Encourage participation in the milieu and in group programming as tolerated 03/12 -Continue current medication regimen. The patient's condition has not yet improved. -The patient does participate in select groups, but often tends to be disruptive. 03/13 -Today, the patient seems to be somewhat more cooperative and less frankly delusional. It was possible to engage in a mostly reality based conversation for 5 or 10 minutes at a time. Also, although he was unhappy with me when I refused to provide him with a dose of Valium for anxiety, he was able to remain pleasant and calm at this time, did not storm from the room." 03/14 and 03/15 -no change in medication will work on therapeutic alliance given patient is not participating 03/16 -304 involuntary commitment granted. -Patient remains completely uncooperative with treatment, refused his Zyprexa Zydis last evening, but then ultimately took it before he received the injection. I have a high suspicion for cheeking of antipsychotic medication, and we will continue to be vigilant with mouth checks, and work towards a long- acting injectable. 03/17 -Patient has been on Zyprexa 20 mg at bedtime for 1 week, with limited response. He is refusing to discuss other medication options. Per records, he has been prescribed up to 30 mg olanzapine in the past, so will increase his dose to this previously tolerated dose, as it is 1 of the few medications he has been willing to take. Continue IM backup for refusal, and Zyprexa Zydis formulation to decrease risk of cheeking. He is not compliant with mouth checks, but have asked staff to try to observe him for 10 minutes after taking the Zydis to ensure he is not spitting it out before it dissolves. 03/18 -Continue Zyprexa Zydis 30 mg at bedtime with IM backup. Consider switch to a different medication (?oral paliperidone with IM backup) if irritability and agitation continues. He has tried virtually every atypical antipsychotic and reports none of them were effective (although some trials were short due to no nadherence) and has a history of dystonia on haloperidol. Clozapine would be a reasonable choice, but he has been unwilling to even discuss medication options. -Consider some component of cognitive decline which could be contributing to his worsening presentation and will need to be monitored and worked up further once he is more psychiatrically stable. -Refer to [facility] in the event that he does not improve and long-term inpatient treatment is needed. 03/19 - Proceed with [facility] referral. 03/20 - Continue current medication regimen; patient refused EKG and CXR yesterday - refused again today - Continue attempts to gather information to make a referral to [facility] (2) Substance abuse: 02/25 - Pt has reported history of substance abuse, and recommendation has consistently been for avoidance of substances with significant abuse potential. - PDMP queried - most recent prescriptions below - lorazepam 0.5mg #60 tabs for 30 day supply - Dr. Alves - filled 02/12/2019 - alprazolam 0.5mg #90 tabs for 30 day supply - Dr. Lopez - filled 01/16/2019 - temazepam 30mg #30 caps for 30 day supply - Dr. Lopez - filled 01/16/2019 - Will continue lorazepam 0.5mg BID prn on admission, as only medication that is seemingly active - toxicology screen is negative for benzodiazepines, which questions if he has been taking the medication appropriately - Ideally will taper and discontinue the lorazepam, as recommendation remains that substances with abuse potential be avoided 02/26 -The patient's outpatient providers, during a meeting this morning, report that the patient tends to successfully convince physicians to prescribe benzodiazepines for him and that, in the past, he has abused him to the degree that he is practically obtunded. 02/27 -A repeat check of the PDMP reveals that the patient is consistently being prescribed lorazepam 0.5 mg twice daily (number 60/month) by a Dr. Brent Alves. He is also being prescribed alprazolam 0.[address] mg [address] Jeff Lopez, with the most recent previous prescription of alprazolam being on 01/16/[address] Lopez also prescribed temazepam 30 mg capsules #30 on 01/16/2019. According to his residential providers, no temazepam capsules were found among the patient's belongings. His most recent prescription for lorazepam 0.5 mg tablets was filled on 02/12/2019. 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 In the past, he reportedly has used clonazepam and temazepam. -I advised the patient that because of his history of misuse of benzodiazepines we would not be prescribing benzodiazepines during his hospital stay. An as needed order for lorazepam has not been used during hospital stay, and I discontinued the order today. 03/02 - Will need to coordinate care with his PCP and outpatient psychiatrist prior to discharge regarding the above. 03/04 - Charge nurse spoke with the above offices regarding concern for continued benzodiazepine prescriptions - Records will be faxed to their offices on discharge, as all benzodiazepines were discontinued during this hospitalization 03/06 -The patient did not request benzodiazepines and did not complain of anxiety today. I suggested to him that perhaps Abilify is also helping with anxiety in his case, and he responded by saying "perhaps." 03/09 -Today, the patient is insisting that what he needs is "benzodiazepines," and explains that the reason he "needs" benzodiazepines is that he has "benzodiazepine receptors," and that he is the only medications that work. He is unable to process warnings about the risks of benzodiazepines in the elderly, including increased risk of falls and mortality. Clearly, the patient is seeking benzodiazepines and has no insight into the associated risks. He also insists that he has never had trouble with benzodiazepines in the past, although there is well-documented of this. 03/10 -Today, the patient repeated his insistence that he needs benzodiazepines and that benzodiazepines are the only medications that work because he has "benzodiazepine receptors." After being told that everyone has central nervous system receptors to which benzodiazepines may attach, he replied, "That may be, but some of people need to have benzodiazepines forearm benzodiazepine receptors. 03/12 -Continues to request Benzodiazepines. 03/13 -Requests Valium for his "benzodiazepines." (3) Hypertension: 02/25 - Continue home dose of clonidine 0.1mg qHS 03/01 Watch mildly elevated blood pressures as patient has been refusing clonidine 03/03 - BP normal past two days, and low today 03/10 -The patient's blood pressure today was 136/73. His pulse was 71 03/14 - elevated BP it is not urgent but will need monitored. 03/15 - BP WNL Inventory Assets Strengths: -Intelligence. Support of community providers. Well educated. Needs: Resume symptom-stabilizing medication regimen, coordinate care with [facility] Risk Factors Assessment Male: Yes : Yes Do You Have Access To A Gun?: No Health Problems: Yes Mental Health Diagnoses: Yes Substance Use Disorders: Yes Protective Factors Assessment Mosque Beliefs: No : No Responsible for Young Children: No Employed: No Stable Relationships: No Supportive Family: No Good Rapport with Provider: No Interval History Identifying Information SCOTT ROBERTO is a 73-year-old M who currently lives at a [facility] in [place]. Pt has a history of schizophrenia and is known to our unit from several previous admissions, most recently in 09/2016. Pt and was admitted on 02/24/19 16:40 on a 302 involuntary commitment for exacerbation of schizophrenia and heightened paranoia resulting in belief he needed to hide in a dumpster to seek refuge from impending bombings. Pt was found by [facility] staff and brought to the ED by police. He is on a 304 involuntary commitment as of 03/16/19. Chief Complaint "Why would I need to speak with you?". Review of Systems Sleep Information Total Hours of Sleep: 6.5 Sleep Comments: pt appeared to sleep with lights on his room. pt on q-15 minute checks. Meal Information Percent Meal Consumed - Breakfast: 100 Percent Meal Consumed - Lunch: 100 Percent Meal Consumed - Dinner: 100 Nutrition Comment: per meal record Subjective Subjective Patient was seen & assessed and interval progress reviewed with Nursing and social work. He has been refusing EKG and CXR, seemingly as knows part of medical work up for referral to extended care. He has been resistant to meeting with female psychiatric prescribers but is more cooperative with staff. He clearly recognized me from previous courses of treatment on unit and declined to discuss FARAH with me. Physical Exam Psychiatric Orientation: alert and + guarded Apperance: appropriately groomed Eye Contact: + poor eye contact Motor Behavior: no abnormal motor movements Speech: normal rate/rhythm/volume of speech (though non spontaneous on purpose) Affect: + blunted affect Mood: + irritable mood Thought Process: + concrete thought process Thought Content: + persecution Suicidal Thoughts: denies suicidal thoughts Homicidal Thoughts: denies homicidal thoughts Hallucinations: no auditory hallucinations and no visual hallucinations appears internally preoccupied. Cognition: recent memory grossly intact Insight: + severely impaired insight Judgement: + severely impaired judgement Vital Signs (Past 24 Hours) Last Vital Signs Temp 36.4 C L 03/21/19 06:39 Pulse 76 03/21/19 06:40 Resp 18 03/21/19 06:39 BP 114/68 03/21/19 06:40 Pulse Ox 96 02/24/19 08:10 Results & Data Current Inpatient Medications Current Inpatient Medications: Current Inpatient Medications Acetaminophen (Tylenol) 650 mg PO Q4H PRN PRN Reason: Headache or Minor Fever Stop: 03/26/19 16:39 Al Hydrox/Mg Hydrox/Simethicone (Maalox) 30 ml PO Q4H PRN PRN Reason: GI Upset Stop: 03/26/19 16:39 Benztropine Mesylate (Cogentin) 0.5 mg PO BID PRN PRN Reason: dystonia Stop: 03/26/19 20:59 Bismuth Subsalicylate (Kaopectate) 15 ml PO PRN PRN PRN Reason: Loose Stool Stop: 03/26/19 16:39 Clonidine HCl (Catapres) 0.1 mg PO [facility] Stop: 03/26/19 20:59 Last Admin: 03/20/19 21:15 Dose: 0.1 mg Documented by: Cyanocobalamin (Vitamin B-12) 500 mcg PO DAILY MAG Stop: 03/27/19 08:59 Last Admin: 03/21/19 09:03 Dose: 500 mcg Documented by: Hydroxyzine HCl (Vistaril) 25 mg PO Q4H PRN PRN Reason: Anxiety Stop: 03/26/19 16:39 Hydroxyzine HCl (Vistaril) 50 mg PO HSZ PRN PRN Reason: Insomnia Stop: 03/26/19 16:39 Magnesium Hydroxide (Milk Of Magnesia) 30 ml PO DAILY PRN PRN Reason: Heartburn Stop: 03/26/19 16:39 Last Admin: 03/21/19 09:02 Dose: 30 ml Documented by: Magnesium Oxide (Mag-Ox) 400 mg PO DAILY MAG Stop: 03/27/19 08:59 Last Admin: 03/21/19 09:03 Dose: 400 mg Documented by: Miscellaneous (Remove Nicoderm Patch) 1 ea N/A HS [facility] Stop: 03/26/19 20:59 Last Admin: 03/20/19 21:16 Dose: Not Given Documented by: Multivitamins (Multivitamin Tab) 1 tab PO DAILY MAG Stop: 03/27/19 08:59 Last Admin: 03/21/19 09:03 Dose: 1 tab Documented by: Nicotine (Nicoderm Cq) 14 mg TD QAM MAG Stop: 03/27/19 08:59 Last Admin: 03/21/19 09:06 Dose: Not Given Documented by: Olanzapine (Zyprexa) 10 mg IM HS PRN PRN Reason: Undecided Stop: 04/08/19 21:59 Olanzapine (Zyprexa Zydis Od) 30 mg PO HS MAG Stop: 04/16/19 21:59 Last Admin: 03/20/19 21:17 Dose: 30 mg Documented by: Pyridoxine HCl (Vitamin B-6) 100 mg PO DAILY MAG Stop: 03/27/19 08:59 Last Admin: 03/21/19 09:03 Dose: 100 mg Documented by: Risperidone (Risperdal M) 1 mg PO BID PRN PRN Reason: psychosis Stop: 03/31/19 10:36 Sodium Chloride ([place] Nasal) 1 - 2 sprays NA PRN PRN PRN Reason: Nasal Dryness/Congestion Stop: 03/26/19 16:39 Mental Health & Subst Abuse Tx Therapist Name of Therapist: Sammy Outcome Analyst Name of Outcome Analyst: Shruti Lopez Phone Number for Outcome Analyst: Case Management Appointment Comment: [phone], [place] [address] Post Discharge Appointments Primary Care Physician Name Of Family Doctor: Dr. Lopez Contact Information Discharge Discharge Address: [address] [place] [id number] CPT Code CPT Code 52597 (1) Schizophrenia Schizophrenia type: paranoid schizophrenia Qualified Code(s): F20.0 - Paranoid schizophrenia (2) Hypertension Hypertension type: essential hypertension Qualified Code(s): I10 - Essential (primary) hypertension
[2019-03-21] MEDS: cloNIDine HCL 0.1 MG TAB PO SCH (21:04)
[2019-03-21] MEDS: OLANZAPINE ZYDIS 10 MG ORALLY DIS. TAB PO SCH (21:04)
[2019-03-22] MEDS: CYANOCOBALAMIN 500 MCG TABLET (VITAMIN B-12) PO SCH (09:04)
[2019-03-22] MEDS: MULTIVITAMIN TAB PO SCH (09:04)
[2019-03-22] MEDS: MAGNESIUM OXIDE 400 MG TAB PO SCH (09:04)
[2019-03-22] MEDS: PYRIDOXINE HCL 50 MG TAB PO SCH (09:04)
[2019-03-22] MEDS: NICOTINE 14 MG/24 HR PATCH TD SCH (09:07)
[2019-03-22] MEDS: MAGNESIUM HYDROXIDE SUSP 30 ML UDC PO PRN ×2 (09:12→12:50)
--- NOTE | 2019-03-22 11:21 | Psychiatric Progress Note ---
Date of Service March 22, 2019 Impression / Recommendations Impression 73-year-old male with schizophrenia who lives at the [facility] and was admitted involuntarily on 02/24/2019 with delusions, hallucinations, irritability and erratic behavior after rapid decompensation 1 -2 weeks after he stopped taking his antipsychotic. He was found in a dumpster, floridly delusional, and was combative with [facility] staff. He refused resumption of olanzapine, but ultimately agreed to take aripiprazole. It initially appeared that he was responding favorably, although not completely, to the addition of aripiprazole. Because of the patient's long history of dangerous behaviors in the community associated with nonadherence with psychiatric medications, the patient's behavioral health unit treatment team and his outpatient providers recommended a depo antipsychotic medication, and he initially agreed to Abilify Maintena; however, refused it when staff attempted to administer the injection, and subsequently became much more oppositional and hostile towards staff. He is now completely uncooperative with treatment, refusing all groups, refusing to talk with staff or clinicians, and refusing mouth checks after Zyprexa Zydis, which he states he does not need. He is refusing a long-acting injectable, and has refused to meet with his outpatient vocational case manager and [facility] staff. He has a clear history of dangerous behaviors during periods of nonadherence with medications in the community, and inpatient psychiatric hospitalization remains the least intensive, least restrictive level of care consistent with the patient's clinical and safety needs. We are planning to gather information for a referral to [facility] - but patient has been refusing two attempts at an EKG and chest X-ray. Will continue to offer, but due to the severity of the patient's condition, it is not likely he will comply. (1) Schizophrenia: He has tried o/10 - Continue home medication regimen - as refusing offerings of his antipsychotic, will likely require olanzapine IM (or alternative agent) over objection, given clear evidence of paranoia and delusional thought process - previously stabilized on this medication - Pt agreeable to taking all other medications, with exception of antipsychotic as mentioned above - Admitted to a locked inpatient behavioral health unit, on q15 minute safety checks - Encourage medication initiation/adjustments as indicated - Encourage participation in group and recreational therapies - Gather collateral information from outpatient providers and [facility] staff - Suggest family meeting to involve outpatient supports in safety planning - Reschedule appropriate aftercare appointments 02/26 -Patient indicates willingness to sign a release for the [facility], will get collateral from their staff. -File for 303 involuntary commitment to be held tomorrow. -Recommend medications over objection, with an IM Zyprexa backup for refusal of oral medication. Involve outpatient treatment team to discuss ways to improve stability and compliance; consider long-acting injectable antipsychotic. -Order fasting labs for monitoring on an atypical antipsychotic once patient is more cooperative. 02/27 -The patient was retrained at his involuntary commitment hearing (303) this morning. -He has continuously and consistently refused psychiatric medications to date. However, today, when I explained that that a option that might become necessary in his case is medication over objection, and an intramuscular form, the patient said that he understood and that he would try medications that I prescribe. His initial preference would be olanzapine, but because olanzapine is not available in a long acting depot form, we would first like to try aripiprazole. He indicates that he is taken aripiprazole in the past and has been able to tolerate it, although he does not believe that it has been particularly helpful. -A trial dose of aripiprazole 15 mg by mouth, as a one-time dose, has been ordered and he assessed for efficacy. 02/28 -Appears to be tolerating initiation of Abilify so far. Remains delusional, paranoid. May consider further titration tomorrow -Aricept discontinued at patient's request on 02/27/2019. The medication has not been demonstrated to be efficacious for cognitive impairment associated with long-standing schizophrenia however we should be vigilant for slowing of mentation following discontinuation. 03/01 Patient fixated and irrational regarding access to clothing item as above today. Hospital environment becoming incorporated and delusions. Consider possibility that the aripiprazole is contributing to activation. We will increase to 20 mg tomorrow and also start Risperdal 1 mg p.o. twice daily as as needed. 03/02 - Continue with aripiprazole at 20mg daily, consider need for further titration - if tolerating and effective, eventual plan will be for conversion to Abilify Maintena - Pt has not yet utilized risperidone 03/03 - Increase aripiprazole to 25mg (equivalent to 30mg pill) and change to liquid formulation to decrease risk of cheeking/nonadherence, as patient does not believe he needs medication and had been noncompliant prior to hospitalization. - Fasting glucose and lipid profile ordered for tomorrow for monitoring on an atypical antipsychotic. - Private room due to psychosis, agitation, and inappropriate disrobing/sexual behavior. - Meeting with [facility] and [facility] staff when patient able to tolerate. 03/04 - Continue aripiprazole 25mg liquid (30mg pill equivalent) and continue to observe for improvement in thought process/content - consider conversion to Maintena if effective, versus trial of another agent if improvement remains limited - Fasting labs reviewed - all values WNL - Continue medically necessary private room - Request meeting with [facility] staff, in order to obtain details about patient's proximity to baseline 03/05 -Patient refusing liquid aripiprazole, but agrees to take the pill: Ordered 30 mg daily. -Schedule meeting with his vocational case manager, [facility] and psych rehab staff. Consider involuntary outpatient commitment at the time of discharge. 03/06 -The patient has improved in that he is more reality based at this point. He continues to harbor fixed, systematized delusions, but is generally able to focus on reality based topics. -Although the patient tells me that he does not feel that aripiprazole has been effective, he is able to accept my opinion in the opinion of the staff that he has improved in response to aripiprazole. -The patient's main objection to aripiprazole oral solution is that he does not like the way it tastes, and within this context, he tells us that he is willing to accept Abilify Maintenaand requests that it be injected into his buttock. Abilify Maintena 300 mg IM ordered, and oral Abilify discontinued. We will resume oral Abilify if the patient subsequently changes his mind and refuses the injection. 03/07 resuming abilfiy oral given his refusal of FARAH form of abilify 03/08 is taking abilify po form but refusing abilify maintena form. advise close monitoring for potential of checking given pt's tendency to not want to take medications. 03/09 -The patient is flatly refusing to take aripiprazole in the form of Abilify Maintena. He is also been hesitant to take oral Abilify, but has been doing so. -The patient's lack of cooperation is thought possibly to be related to an un-expressed desire to not be discharged back to the community. He told me today that he left his meeting with his community providers after a few seconds because "just the side of them made me extremely anxious. My pulse elevated to 140." Later, he told me that he was still anxious about it and his pulse was "still around 130." The patient allowed me to take his pulse, and it was approximately 76. At that point he said, "did I say pulse? I meant systolic blood pressure." And when I pointed out that his systolic blood pressure of 130 is not considered to be a particular concern, he said "I mean diastolic." -Our hope had been that the patient would agree to accept a Depo form of medication. He was refusing Haldol Decanoate because of various side effects. Risperidone constant was ruled out as a first-line Depo medication because of the frequency of administration (the patient tends to get into power struggles over medications) and because he says that he is sensitive to "big needles." Invega would be an option, but currently the patient is being so uncooperative that our concern would be that he would cheek the oral tablets that we would have to give him first. Accordingly, the new strategy will be to discontinue Abilify, and resume olanzapine with olanzapine IM over objection if necessary. We will begin the olanzapine Zydis 20 mg at bedtime 03/10 -The patient took the prescribed dose of olanzapine Zydis 20 mg at bedtime last night. Today, he tells me that it "did not help at all." However, staff report that he has been somewhat more agreeable, more pleasant, and less paranoid today. -As he has with other providers, today he told me that I should have given him olanzapine 5 mg "to start", and I explained that he was already on olanzapine 20 mg when he came into the hospital and we know that he is able to tolerate that dose. He tells me that he did, in fact tolerate the dose and is not aware of any side effects, but, somewhat illogically, insisted that the dose was "too high for a starting dose." 03/11 - Continue current medication regimen at this time - olanzapine 20mg daily - Encourage participation in the milieu and in group programming as tolerated 03/12 -Continue current medication regimen. The patient's condition has not yet improved. -The patient does participate in select groups, but often tends to be disruptive. 03/13 -Today, the patient seems to be somewhat more cooperative and less frankly delusional. It was possible to engage in a mostly reality based conversation for 5 or 10 minutes at a time. Also, although he was unhappy with me when I refused to provide him with a dose of Valium for anxiety, he was able to remain pleasant and calm at this time, did not storm from the room." 03/14 and 03/15 -no change in medication will work on therapeutic alliance given patient is not participating 03/16 -304 involuntary commitment granted. -Patient remains completely uncooperative with treatment, refused his Zyprexa Zydis last evening, but then ultimately took it before he received the injection. I have a high suspicion for cheeking of antipsychotic medication, and we will continue to be vigilant with mouth checks, and work towards a long- acting injectable. 03/17 -Patient has been on Zyprexa 20 mg at bedtime for 1 week, with limited response. He is refusing to discuss other medication options. Per records, he has been prescribed up to 30 mg olanzapine in the past, so will increase his dose to this previously tolerated dose, as it is 1 of the few medications he has been willing to take. Continue IM backup for refusal, and Zyprexa Zydis formulation to decrease risk of cheeking. He is not compliant with mouth checks, but have asked staff to try to observe him for 10 minutes after taking the Zydis to ensure he is not spitting it out before it dissolves. 03/18 -Continue Zyprexa Zydis 30 mg at bedtime with IM backup. Consider switch to a different medication (?oral paliperidone with IM backup) if irritability and agitation continues. He has tried virtually every atypical antipsychotic and reports none of them were effective (although some trials were short due to no nadherence) and has a history of dystonia on haloperidol. Clozapine would be a reasonable choice, but he has been unwilling to even discuss medication options. -Consider some component of cognitive decline which could be contributing to his worsening presentation and will need to be monitored and worked up further once he is more psychiatrically stable. -Refer to [facility] in the event that he does not improve and long-term inpatient treatment is needed. 03/19 - Proceed with [facility] referral. 03/20 - Continue current medication regimen; patient refused EKG and CXR yesterday - refused again today - Continue attempts to gather information to make a referral to [facility] (2) Substance abuse: 02/25 - Pt has reported history of substance abuse, and recommendation has consistently been for avoidance of substances with significant abuse potential. - PDMP queried - most recent prescriptions below - lorazepam 0.5mg #60 tabs for 30 day supply - Dr. Alves - filled 02/12/2019 - alprazolam 0.5mg #90 tabs for 30 day supply - Dr. Lopez - filled 01/16/2019 - temazepam 30mg #30 caps for 30 day supply - Dr. Lopez - filled 01/16/2019 - Will continue lorazepam 0.5mg BID prn on admission, as only medication that is seemingly active - toxicology screen is negative for benzodiazepines, which questions if he has been taking the medication appropriately - Ideally will taper and discontinue the lorazepam, as recommendation remains that substances with abuse potential be avoided 02/26 -The patient's outpatient providers, during a meeting this morning, report that the patient tends to successfully convince physicians to prescribe benzodiazepines for him and that, in the past, he has abused him to the degree that he is practically obtunded. 02/27 -A repeat check of the PDMP reveals that the patient is consistently being prescribed lorazepam 0.5 mg twice daily (number 60/month) by a Dr. Brent Alves. He is also being prescribed alprazolam 0.[address] mg [address] Jeff Lopez, with the most recent previous prescription of alprazolam being on 01/16/[address] Lopez also prescribed temazepam 30 mg capsules #30 on 01/16/2019. According to his residential providers, no temazepam capsules were found among the patient's belongings. His most recent prescription for lorazepam 0.5 mg tablets was filled on 02/12/2019. 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 In the past, he reportedly has used clonazepam and temazepam. -I advised the patient that because of his history of misuse of benzodiazepines we would not be prescribing benzodiazepines during his hospital stay. An as needed order for lorazepam has not been used during hospital stay, and I discontinued the order today. 03/02 - Will need to coordinate care with his PCP and outpatient psychiatrist prior to discharge regarding the above. 03/04 - Charge nurse spoke with the above offices regarding concern for continued benzodiazepine prescriptions - Records will be faxed to their offices on discharge, as all benzodiazepines were discontinued during this hospitalization 03/06 -The patient did not request benzodiazepines and did not complain of anxiety today. I suggested to him that perhaps Abilify is also helping with anxiety in his case, and he responded by saying "perhaps." 03/09 -Today, the patient is insisting that what he needs is "benzodiazepines," and explains that the reason he "needs" benzodiazepines is that he has "benzodiazepine receptors," and that he is the only medications that work. He is unable to process warnings about the risks of benzodiazepines in the elderly, including increased risk of falls and mortality. Clearly, the patient is seeking benzodiazepines and has no insight into the associated risks. He also insists that he has never had trouble with benzodiazepines in the past, although there is well-documented of this. 03/10 -Today, the patient repeated his insistence that he needs benzodiazepines and that benzodiazepines are the only medications that work because he has "benzodiazepine receptors." After being told that everyone has central nervous system receptors to which benzodiazepines may attach, he replied, "That may be, but some of people need to have benzodiazepines forearm benzodiazepine receptors. 03/12 -Continues to request Benzodiazepines. 03/13 -Requests Valium for his "benzodiazepines." (3) Hypertension: 02/25 - Continue home dose of clonidine 0.1mg qHS 03/01 Watch mildly elevated blood pressures as patient has been refusing clonidine 03/03 - BP normal past two days, and low today 03/10 -The patient's blood pressure today was 136/73. His pulse was 71 03/14 - elevated BP it is not urgent but will need monitored. 03/15 - BP WNL Inventory Assets Strengths: -Intelligence. Support of community providers. Well educated. Needs: Resume symptom-stabilizing medication regimen, coordinate care with [facility] Risk Factors Assessment Male: Yes : Yes Do You Have Access To A Gun?: No Health Problems: Yes Mental Health Diagnoses: Yes Substance Use Disorders: Yes Protective Factors Assessment Jain Beliefs: No : No Responsible for Young Children: No Employed: No Stable Relationships: No Supportive Family: No Good Rapport with Provider: No Interval History Identifying Information SCOTT ROBERTO is a 73-year-old M who currently lives at a [facility] in [place]. Pt has a history of schizophrenia and is known to our unit from several previous admissions, most recently in 09/2016. Pt and was admitted on 02/24/19 16:40 on a 302 involuntary commitment for exacerbation of schizophrenia and heightened paranoia resulting in belief he needed to hide in a dumpster to seek refuge from impending bombings. Pt was found by [facility] staff and brought to the ED by police. He is on a 304 involuntary commitment as of 03/16/19. Chief Complaint "I'm not going to see you without your credentials, get out of here". Review of Systems Sleep Information Total Hours of Sleep: 8 Sleep Comments: pt on q-15 minute checks Meal Information Percent Meal Consumed - Breakfast: 100 Percent Meal Consumed - Lunch: 100 Percent Meal Consumed - Dinner: 50 Nutrition Comment: per meal record Subjective Subjective Patient was seen & assessed and interval progress reviewed with Nursing and social work. Essentially unchanged, cooperative with PO meds and ADLs but spends all time in room and won't interact with copatients. He is still refusing injectables, EKG and CXR. Physical Exam Mental Examination alert, no abnormal motor movements, poor eye contact, irritable mood, concrete thought processes, paranoia, unwilling to answer questions about SI/HI. Vital Signs (Past 24 Hours) Last Vital Signs Temp 36.4 C L 03/22/19 06:42 Pulse 78 03/22/19 06:43 Resp 18 03/22/19 06:42 BP 122/76 03/22/19 06:43 Pulse Ox 96 02/24/19 08:10 Results & Data Current Inpatient Medications Current Inpatient Medications: Current Inpatient Medications Acetaminophen (Tylenol) 650 mg PO Q4H PRN PRN Reason: Headache or Minor Fever Stop: 03/26/19 16:39 Al Hydrox/Mg Hydrox/Simethicone (Maalox) 30 ml PO Q4H PRN PRN Reason: GI Upset Stop: 03/26/19 16:39 Benztropine Mesylate (Cogentin) 0.5 mg PO BID PRN PRN Reason: dystonia Stop: 03/26/19 20:59 Bismuth Subsalicylate (Kaopectate) 15 ml PO PRN PRN PRN Reason: Loose Stool Stop: 03/26/19 16:39 Clonidine HCl (Catapres) 0.1 mg PO HS MAG Stop: 03/26/19 20:59 Last Admin: 03/21/19 21:04 Dose: 0.1 mg Documented by: Cyanocobalamin (Vitamin B-12) 500 mcg PO DAILY MAG Stop: 03/27/19 08:59 Last Admin: 03/22/19 09:04 Dose: 500 mcg Documented by: Hydroxyzine HCl (Vistaril) 25 mg PO Q4H PRN PRN Reason: Anxiety Stop: 03/26/19 16:39 Hydroxyzine HCl (Vistaril) 50 mg PO HSZ PRN PRN Reason: Insomnia Stop: 03/26/19 16:39 Magnesium Hydroxide (Milk Of Magnesia) 30 ml PO DAILY PRN PRN Reason: Heartburn Stop: 03/26/19 16:39 Last Admin: 03/22/19 09:12 Dose: 30 ml Documented by: Magnesium Oxide (Mag-Ox) 400 mg PO DAILY MAG Stop: 03/27/19 08:59 Last Admin: 03/22/19 09:04 Dose: 400 mg Documented by: Miscellaneous (Remove Nicoderm Patch) 1 ea N/A HS MAG Stop: 03/26/19 20:59 Last Admin: 03/21/19 21:04 Dose: Not Given Documented by: Multivitamins (Multivitamin Tab) 1 tab PO DAILY MAG Stop: 03/27/19 08:59 Last Admin: 03/22/19 09:04 Dose: 1 tab Documented by: Nicotine (Nicoderm Cq) 14 mg TD QAM MAG Stop: 03/27/19 08:59 Last Admin: 03/22/19 09:07 Dose: Not Given Documented by: Olanzapine (Zyprexa) 10 mg IM HS PRN PRN Reason: Undecided Stop: 04/08/19 21:59 Olanzapine (Zyprexa Zydis Od) 30 mg PO HS MAG Stop: 04/16/19 21:59 Last Admin: 03/21/19 21:04 Dose: 30 mg Documented by: Pyridoxine HCl (Vitamin B-6) 100 mg PO DAILY MAG Stop: 03/27/19 08:59 Last Admin: 03/22/19 09:04 Dose: 100 mg Documented by: Risperidone (Risperdal M) 1 mg PO BID PRN PRN Reason: psychosis Stop: 03/31/19 10:36 Sodium Chloride ([place] Nasal) 1 - 2 sprays NA PRN PRN PRN Reason: Nasal Dryness/Congestion Stop: 03/26/19 16:39 Mental Health & Subst Abuse Tx Therapist Name of Therapist: Denies [facility]z Mounter Name of Quartz Mounter: Shruti Lopez Phone Number for Quartz Mounter: Case Management Appointment Comment: [phone], [place] [address] Post Discharge Appointments Primary Care Physician Name Of Family Doctor: Dr. Lopez Contact Information Discharge Discharge [address]: [address] [place] [id number] CPT Code CPT Code 16081 (1) Schizophrenia Schizophrenia type: paranoid schizophrenia Qualified Code(s): F20.0 - Paranoid schizophrenia (2) Hypertension Hypertension type: essential hypertension Qualified Code(s): I10 - Essential (primary) hypertension
[2019-03-22] MEDS ORDERED: DOCUSATE SODIUM/SENNA 50/8.6MG TAB PO ONE (17:50)
[2019-03-22] MEDS: OLANZAPINE ZYDIS 10 MG ORALLY DIS. TAB PO SCH (21:11)
[2019-03-22] MEDS: cloNIDine HCL 0.1 MG TAB PO SCH (21:11)
[2019-03-23] MEDS: MAGNESIUM OXIDE 400 MG TAB PO SCH (07:47)
[2019-03-23] MEDS: MULTIVITAMIN TAB PO SCH (07:47)
[2019-03-23] MEDS: CYANOCOBALAMIN 500 MCG TABLET (VITAMIN B-12) PO SCH (07:48)
[2019-03-23] MEDS: PYRIDOXINE HCL 50 MG TAB PO SCH (07:48)
[2019-03-23] MEDS: NICOTINE 14 MG/24 HR PATCH TD SCH (07:49)
[2019-03-23] MEDS ORDERED: DOCUSATE SODIUM/SENNA 50/8.6MG TAB PO SCH (09:00)
--- NOTE | 2019-03-23 10:16 | Psychiatric Progress Note ---
Date of Service March 23, 2019 Impression / Recommendations Impression 73-year-old male with schizophrenia who lives at the [facility] and was admitted involuntarily on 02/24/2019 with delusions, hallucinations, irritability and erratic behavior after rapid decompensation 1 -2 weeks after he stopped taking his antipsychotic. He was found in a dumpster, floridly delusional, and was combative with [facility] staff. He refused resumption of olanzapine, but ultimately agreed to take aripiprazole. It initially appeared that he was responding favorably, although not completely, to the addition of aripiprazole. Because of the patient's long history of dangerous behaviors in the community associated with nonadherence with psychiatric medications, the patient's behavioral health unit treatment team and his outpatient providers recommended a depo antipsychotic medication, and he initially agreed to Abilify Maintena; however, refused it when staff attempted to administer the injection, and subsequently became much more oppositional and hostile towards staff. He continues to be uncooperative with treatment, refusing all groups, refusing to talk with staff or clinicians, and refusing mouth checks after Zyprexa Zydis, which he states he does not need. He is refusing a long-acting injectable, and has refused to meet with his outpatient assistant case manager and shelter staff. Another meeting is scheduled for 03/24/19. He has a clear history of dangerous behaviors during periods of nonadherence with medications in the community, and inpatient psychiatric hospitalization remains the least intensive, least restrictive level of care consistent with the patient's clinical and safety needs. Referral to [facility] will be sent today, after multiple documented failed attempts for EKG and CXR. Will continue to offer, but due to the severity of the patient's condition, it is not likely he will comply - only further highlighting the need for more intensive psychiatric treatment for his ongoing symptoms. (1) Schizophrenia: 02/25 - Continue home medication regimen - as refusing offerings of his antipsychotic, will likely require olanzapine IM (or alternative agent) over objection, given clear evidence of paranoia and delusional thought process - previously stabilized on this medication - Pt agreeable to taking all other medications, with exception of antipsychotic as mentioned above - Admitted to a locked inpatient behavioral health unit, on q15 minute safety checks - Encourage medication initiation/adjustments as indicated - Encourage participation in group and recreational therapies - Gather collateral information from outpatient providers and shelter staff - Suggest family meeting to involve outpatient supports in safety planning - Reschedule appropriate aftercare appointments 02/26 -Patient indicates willingness to sign a release for the [facility], will get collateral from their staff. -File for 303 involuntary commitment to be held tomorrow. -Recommend medications over objection, with an IM Zyprexa backup for refusal of oral medication. Involve outpatient treatment team to discuss ways to improve stability and compliance; consider long-acting injectable antipsychotic. -Order fasting labs for monitoring on an atypical antipsychotic once patient is more cooperative. 02/27 -The patient was retrained at his involuntary commitment hearing (303) this morning. -He has continuously and consistently refused psychiatric medications to date. However, today, when I explained that that a option that might become necessary in his case is medication over objection, and an intramuscular form, the patient said that he understood and that he would try medications that I prescribe. His initial preference would be olanzapine, but because olanzapine is not available in a long acting depot form, we would first like to try aripiprazole. He indicates that he is taken aripiprazole in the past and has been able to tolerate it, although he does not believe that it has been p articularly helpful. -A trial dose of aripiprazole 15 mg by mouth, as a one-time dose, has been ordered and he assessed for efficacy. 02/28 -Appears to be tolerating initiation of Abilify so far. Remains delusional, paranoid. May consider further titration tomorrow -Aricept discontinued at patient's request on 02/27/2019. The medication has not been demonstrated to be efficacious for cognitive impairment associated with long-standing schizophrenia however we should be vigilant for slowing of mentation following discontinuation. 03/01 Patient fixated and irrational regarding access to clothing item as above today. Hospital environment becoming incorporated and delusions. Consider possibility that the aripiprazole is contributing to activation. We will increase to 20 mg tomorrow and also start Risperdal 1 mg p.o. twice daily as as needed. 03/02 - Continue with aripiprazole at 20mg daily, consider need for further titration - if tolerating and effective, eventual plan will be for conversion to Abilify Maintena - Pt has not yet utilized risperidone 03/03 - Increase aripiprazole to 25mg (equivalent to 30mg pill) and change to liquid formulation to decrease risk of cheeking/nonadherence, as patient does not believe he needs medication and had been noncompliant prior to hospitalization. - Fasting glucose and lipid profile ordered for tomorrow for monitoring on an atypical antipsychotic. - Private room due to psychosis, agitation, and inappropriate disrobing/sexual behavior. - Meeting with [facility] and [facility] staff when patient able to tolerate. 03/04 - Continue aripiprazole 25mg liquid (30mg pill equivalent) and continue to observe for improvement in thought process/content - consider conversion to Maintena if effective, versus trial of another agent if improvement remains limited - Fasting labs reviewed - all values WNL - Continue medically necessary private room - Request meeting with [facility] staff, in order to obtain details about patient's proximity to baseline 03/05 -Patient refusing liquid aripiprazole, but agrees to take the pill: Ordered 30 mg daily. -Schedule meeting with his assistant case manager, [facility] and psych rehab staff. Consider involuntary outpatient commitment at the time of discharge. 03/06 -The patient has improved in that he is more reality based at this point. He continues to harbor fixed, systematized delusions, but is generally able to focu s on reality based topics. -Although the patient tells me that he does not feel that aripiprazole has been effective, he is able to accept my opinion in the opinion of the staff that he has improved in response to aripiprazole. -The patient's main objection to aripiprazole oral solution is that he does not like the way it tastes, and within this context, he tells us that he is willing to accept Abilify Maintenaand requests that it be injected into his buttock. Abilify Maintena 300 mg IM ordered, and oral Abilify discontinued. We will resume oral Abilify if the patient subsequently changes his mind and refuses the injection. 03/07 resuming abilfiy oral given his refusal of FARAH form of abilify 03/08 is taking abilify po form but refusing abilify maintena form. advise close monitoring for potential of checking given pt's tendency to not want to take medications. 03/09 -The patient is flatly refusing to take aripiprazole in the form of Abilify Maintena. He is also been hesitant to take oral Abilify, but has been doing so. -The patient's lack of cooperation is thought possibly to be related to an un-expressed desire to not be discharged back to the community. He told me t loulou that he left his meeting with his community providers after a few seconds because "just the side of them made me extremely anxious. My pulse elevated to 140." Later, he told me that he was still anxious about it and his pulse was "still around 130." The patient allowed me to take his pulse, and it was approximately 76. At that point he said, "did I say pulse? I meant systolic blood pressure." And when I pointed out that his systolic blood pressure of 130 is not considered to be a particular concern, he said "I mean diastolic." -Our hope had been that the patient would agree to accept a Depo form of medication. He was refusing Haldol Decanoate because of various side effects. Risperidone constant was ruled out as a first-line Depo medication because of the frequency of administration (the patient tends to get into power struggles over medications) and because he says that he is sensitive to "big needles." Invega would be an option, but currently the patient is being so uncooperative that our concern would be that he would cheek the oral tablets that we would have to give him first. Accordingly, the new strategy will be to discontinue Abilify, and resume olanzapine with olanzapine IM over objection if necessary. We will begin the olanzapine Zydis 20 mg at bedtime 03/10 -The patient took the prescribed dose of olanzapine Zydis 20 mg at bedtime last night. Today, he tells me that it "did not help at all." However, staff report that he has been somewhat more agreeable, more pleasant, and less paranoid today. -As he has with other providers, today he told me that I should have given him olanzapine 5 mg "to start", and I explained that he was already on olanzapine 20 mg when he came into the hospital and we know that he is able to tolerate that dose. He tells me that he did, in fact tolerate the dose and is not aware of any side effects, but, somewhat illogically, insisted that the dose was "too high for a starting dose." 03/11 - Continue current medication regimen at this time - olanzapine 20mg daily - Encourage participation in the milieu and in group programming as tolerated 03/12 -Continue current medication regimen. The patient's condition has not yet improved. -The patient does participate in select groups, but often tends to be disruptive. 03/13 -Today, the patient seems to be somewhat more cooperative and less frankly delusional. It was possible to engage in a mostly reality based conversation for 5 or 10 minutes at a time. Also, although he was unhappy with me when I refused to provide him with a dose of Valium for anxiety, he was able to remain pleasant and calm at this time, did not storm from the room." 03/14 and 03/15 -no change in medication will work on therapeutic alliance given patient is not participating 03/16 -304 involuntary commitment granted. -Patient remains completely uncooperative with treatment, refused his Zyprexa Zydis last evening, but then ultimately took it before he received the injection . I have a high suspicion for cheeking of antipsychotic medication, and we will continue to be vigilant with mouth checks, and work towards a long-acting injectable. 03/17 -Patient has been on Zyprexa 20 mg at bedtime for 1 week, with limited response. He is refusing to discuss other medication options. Per records, he has been prescribed up to 30 mg olanzapine in the past, so will increase his dose to this previously tolerated dose, as it is 1 of the few medications he has been willing to take. Continue IM backup for refusal, and Zyprexa Zydis formulation to decrease risk of cheeking. He is not compliant with mouth checks, but have asked staff to try to observe him for 10 minutes after taking the Zydis to ensure he is not spitting it out before it dissolves. 03/18 -Continue Zyprexa Zydis 30 mg at bedtime with IM backup. Consider switch to a different medication (?oral paliperidone with IM backup) if irritability and agitation continues. He has tried virtually every atypical antipsychotic and reports none of them were effective (although some trials were short due to nonadherence) and has a history of dystonia on haloperidol. Clozapine would be a reasonable choice, but he has been unwilling to even discuss medication options. -Consider some component of cognitive decline which could be contributing to his worsening presentation and will need to be monitored and worked up further once he is more psychiatrically stable. -Refer to [facility] in the event that he does not improve and long-term inpatient treatment is needed. 03/19 - Proceed with [facility] referral. 03/20 - Continue current medication regimen; patient refused EKG and CXR yesterday - refused again today - Continue attempts to gather information to make a referral to [facility] 03/23 - Proceed with [facility] referral - patient has refused EKG and CXR for multiple attempts. We will send most recent tests available - Continue current medication regimen at this time (2) Substance abuse: 02/25 - Pt has reported history of substance abuse, and recommendation has consistently been for avoidance of substances with significant abuse potential. - PDMP queried - most recent prescriptions below - lorazepam 0.5mg #60 tabs for 30 day supply - Dr. Alves - filled 02/12/2019 - alprazolam 0.5mg #90 tabs for 30 day supply - Dr. Lopez - filled 01/16/2019 - temazepam 30mg #30 caps for 30 day supply - Dr. Lopez - filled 01/16/2019 - Will continue lorazepam 0.5mg BID prn on admission, as only medication that is seemingly active - toxicology screen is negative for benzodiazepines, which questions if he has been taking the medication appropriately - Ideally will taper and discontinue the lorazepam, as recommendation remains that substances with abuse potential be avoided 02/26 -The patient's outpatient providers, during a meeting this morning, report that the patient tends to successfully convince physicians to prescribe benzodi azepines for him and that, in the past, he has abused him to the degree that he is practically obtunded. 02/27 -A repeat check of the PDMP reveals that the patient is consistently being prescribed lorazepam 0.5 mg twice daily (number 60/month) by a Dr. Brent Alves. He is also being prescribed alprazolam 0.[address] mg [address] Jeff Lopez, with the most recent previous prescription of alprazolam being on 01/16/[address] Lopez also prescribed temazepam 30 mg capsules #30 on 01/16/2019. According to his residential providers, no temazepam capsules were found among the patient's belongings. His most recent prescription for lorazepam 0.5 mg tablets was filled on 02/12/2019. 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 In the past, he reportedly has used clonazepam and temazepam. -I advised the patient that because of his history of misuse of benzodi azepines we would not be prescribing benzodiazepines during his hospital stay. An as needed order for lorazepam has not been used during hospital stay, and I discontinued the order today. 03/02 - Will need to coordinate care with his PCP and outpatient psychiatrist prior to discharge regarding the above. 03/04 - Charge nurse spoke with the above offices regarding concern for continued benzodiazepine prescriptions - Records will be faxed to their offices on discharge, as all benzodiazepines were discontinued during this hospitalization 03/06 -The patient did not request benzodiazepines and did not complain of anxiety today. I suggested to him that perhaps Abilify is also helping with anxiety in his case, and he responded by saying "perhaps." 03/09 -Today, the patient is insisting that what he needs is "benzodiazepines," and explains that the reason he "needs" benzodiazepines is that he has "benzodiazepine receptors," and that he is the only medications that work. He is unable to process warnings about the risks of benzodiazepines in the elderly, including increased risk of falls and mortality. Clearly, the patient is seeking benzodiazepines and has no insight into the associated risks. He also insists that he has never had trouble with benzodiazepines in the past, although there is well-documented of this. 03/10 -Today, the patient repeated his insistence that he needs benzodiazepines and that benzodiazepines are the only medications that work because he has "benzodiazepine receptors." After being told that everyone has central nervous system receptors to which benzodiazepines may attach, he replied, "That may be, but some of people need to have benzodiazepines forearm benzodiazepine receptors. 03/12 -Continues to request Benzodiazepines. 03/13 -Requests Valium for his "benzodiazepines." (3) Hypertension: 02/25 - Continue home dose of clonidine 0.1mg qHS 03/01 Watch mildly elevated blood pressures as patient has been refusing clonidine 03/03 - BP normal past two days, and low today 03/10 -The patient's blood pressure today was 136/73. His pulse was 71 03/14 - elevated BP it is not urgent but will need monitored. 03/15 - BP WNL Inventory Assets Strengths: -Intelligence. Support of community providers. Well educated. Needs: Resume symptom-stabilizing medication regimen, coordinate care with shelter Risk Factors Assessment Male: Yes : Yes Do You Have Access To A Gun?: No Health Problems: Yes Mental Health Diagnoses: Yes Substance Use Disorders: Yes Protective Factors Assessment Nondenominational Beliefs: No : No Responsible for Young Children: No Employed: No Stable Relationships: No Supportive Family: No Good Rapport with Provider: No Interval History Identifying Information SCOTT ROBERTO is a 73-year-old M who currently lives at a [facility] in [place]. Pt has a history of schizophrenia and is known to our unit from several previous admissions, most recently in 09/2016. Pt and was admitted on 02/24/19 16:40 on a 302 involuntary commitment for exacerbation of schizophrenia and heightened paranoia resulting in belief he needed to hide in a dumpster to seek refuge from impending bombings. Pt was found by [facility] staff and brought to the ED by police. He is on a 304 involuntary commitment as of 03/16/19. Chief Complaint "Please leave me alone." Review of Systems Notes Pt largely uncooperative during encounter today - unable to adequate complete ROS. Staff reported during treatment team that patient had admitted to some constipation. Sleep Information Total Hours of Sleep: 6.5 Sleep Comments: pt awoke and had 2 boxes of cereals with juice @0330. pt pleasant and cooperative. pt on q-15 minute checks Meal Information Percent Meal Consumed - Breakfast: 100 Percent Meal Consumed - Lunch: 100 Percent Meal Consumed - Dinner: 100 Nutrition Comment: per meal record Subjective Subjective Patient was seen & assessed and interval progress reviewed with Treatment Team. Staff reports the patient has continued to refuse programming. He has reportedly been taking his PO medication, but remains unwilling for FARAH conversion. Pt had reportedly informed staff that the reason for another patient's psychotic behavior was that the individual had Salmonella. Pt was seen today to assess progress since admission. Prior to encounter, patient had been observed to be sitting in the day room. He had relocated to the activity room where he was looking intently out the window. Pt was asked if he was ok, as another patient had been mildly disruptive prior to our encounter. Pt states, "Yeah, I'm ok. Please leave me alone. 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 This provider ended conversation and patient remained in activity room where he continued to look out the window. Physical Exam Psychiatric Orientation: alert, oriented to person, oriented to place and + guarded (essentially refusing a productive visit); + uncooperative Apperance: appropriately dressed, appropriately groomed and appeared stated age Eye Contact: + poor eye contact (continues to stare out window for duration of brief visit) Motor Behavior: steady gait and station and no abnormal motor movements Speech: normal rate/rhythm/volume of speech (brief responses to questions, irritable tone) Affect: + angry affect Mood: + irritable mood ("I'm ok") Thought Process: + concrete thought process (limited willingness to interact today) Difficulty adequately assessing given patient's uncooperative behavior Thought Content: + delusions (can be assumed; though limited willingness to engage in direct conversation) Difficulty adequately assessing given patient's uncooperative behavior Insight: + severely impaired insight Judgement: + severely impaired judgement Vital Signs (Past 24 Hours) Last Vital Signs Temp 36.6 C 03/23/19 06:42 Pulse 81 03/23/19 06:43 Resp 18 03/23/19 06:42 BP 117/77 03/23/19 06:43 Pulse Ox 96 02/24/19 08:10 Results & Data Current Inpatient Medications Current Inpatient Medications: Current Inpatient Medications Acetaminophen (Tylenol) 650 mg PO Q4H PRN PRN Reason: Headache or Minor Fever Stop: 03/26/19 16:39 Al Hydrox/Mg Hydrox/Simethicone (Maalox) 30 ml PO Q4H PRN PRN Reason: GI Upset Stop: 03/26/19 16:39 Benztropine Mesylate (Cogentin) 0.5 mg PO BID PRN PRN Reason: dystonia Stop: 03/26/19 20:59 Bismuth Subsalicylate (Kaopectate) 15 ml PO PRN PRN PRN Reason: Loose Stool Stop: 03/26/19 16:39 Clonidine HCl (Catapres) 0.1 mg PO HS MAG Stop: 03/26/19 20:59 Last Admin: 03/22/19 21:11 Dose: 0.1 mg Documented by: Cyanocobalamin (Vitamin B-12) 500 mcg PO DAILY MAG Stop: 03/27/19 08:59 Last Admin: 03/23/19 07:48 Dose: 500 mcg Documented by: Hydroxyzine HCl (Vistaril) 25 mg PO Q4H PRN PRN Reason: Anxiety Stop: 03/26/19 16:39 Hydroxyzine HCl (Vistaril) 50 mg PO HSZ PRN PRN Reason: Insomnia Stop: 03/26/19 16:39 Magnesium Hydroxide (Milk Of Magnesia) 30 ml PO DAILY PRN PRN Reason: Heartburn Stop: 03/26/19 16:39 Last Admin: 03/22/19 12:50 Dose: 30 ml Documented by: Magnesium Oxide (Mag-Ox) 400 mg PO DAILY MAG Stop: 03/27/19 08:59 Last Admin: 03/23/19 07:47 Dose: 400 mg Documented by: Miscellaneous (Remove Nicoderm Patch) 1 ea N/A HS MAG Stop: 03/26/19 20:59 Last Admin: 03/22/19 21:11 Dose: Not Given Documented by: Multivitamins (Multivitamin Tab) 1 tab PO DAILY MAG Stop: 03/27/19 08:59 Last Admin: 03/23/19 07:47 Dose: 1 tab Documented by: Nicotine (Nicoderm Cq) 14 mg TD QAM MAG Stop: 03/27/19 08:59 Last Admin: 03/23/19 07:49 Dose: Not Given Documented by: Olanzapine (Zyprexa) 10 mg IM HS PRN PRN Reason: Undecided Stop: 04/08/19 21:59 Olanzapine (Zyprexa Zydis Od) 30 mg PO HS MAG Stop: 04/16/19 21:59 Last Admin: 03/22/19 21:11 Dose: 30 mg Documented by: Pyridoxine HCl (Vitamin B-6) 100 mg PO DAILY MAG Stop: 03/27/19 08:59 Last Admin: 03/23/19 07:48 Dose: 100 mg Documented by: Risperidone (Risperdal M) 1 mg PO BID PRN PRN Reason: psychosis Stop: 03/31/19 10:36 Sodium Chloride ([place] Nasal) 1 - 2 sprays NA PRN PRN PRN Reason: Nasal Dryness/Congestion Stop: 03/26/19 16:39 Mental Health & Subst Abuse Tx Therapist Name of Therapist: Sammy Patient Centered Care Specialist Name of Patient Centered Care Specialist: Shruti Resendez Jessica Phone Number for Patient Centered Care Specialist: Case Management Appointment Comment: [phone], [place] [address] Post Discharge Appointments Primary Care Physician Name Of Family Doctor: Dr. Lopez Contact Information Discharge Discharge Address: [address] [place] [id number] CPT Code CPT Code 51127 (1) Schizophrenia Schizophrenia type: paranoid schizophrenia Qualified Code(s): F20.0 - Paranoid schizophrenia (2) Hypertension Hypertension type: essential hypertension Qualified Code(s): I10 - Essential (primary) hypertension
[2019-03-23] MEDS ORDERED: MAGNESIUM CITRATE 296 ML/BTL PO PRN (15:52)
[2019-03-23] MEDS: cloNIDine HCL 0.1 MG TAB PO SCH (21:52)
[2019-03-23] MEDS: OLANZAPINE ZYDIS 10 MG ORALLY DIS. TAB PO SCH (21:52)
[2019-03-24] MEDS: CYANOCOBALAMIN 500 MCG TABLET (VITAMIN B-12) PO SCH (07:57)
[2019-03-24] MEDS: MULTIVITAMIN TAB PO SCH (07:57)
[2019-03-24] MEDS: NICOTINE 14 MG/24 HR PATCH TD SCH (07:57)
[2019-03-24] MEDS: PYRIDOXINE HCL 50 MG TAB PO SCH (07:57)
[2019-03-24] MEDS: MAGNESIUM OXIDE 400 MG TAB PO SCH (07:57)
--- NOTE | 2019-03-24 10:46 | Psychiatric Progress Note ---
Date of Service March 24, 2019 Impression / Recommendations Impression 73-year-old male with schizophrenia who lives at the [facility] and was admitted involuntarily on 02/24/2019 with delusions, hallucinations, irritability and erratic behavior after rapid decompensation 1-2 weeks after he stopped taking his antipsychotic. He was found in a dumpster, floridly delusional, and was combative with [facility] staff. He refused resumption of olanzapine, but ultimately agreed to take aripiprazole. It initially appeared that he was responding favorably, although not completely, to the addition of aripiprazole. Because of the patient's long history of dangerous behaviors in the community associated with nonadherence with psychiatric medications, the patient's behavioral health unit treatment team and his outpatient providers recommended a depo antipsychotic medication, and he initially agreed to Abilify Maintena; however, refused it when staff attempted to administer the injection (03/13/2019), and subsequently became much more oppositional and hostile towards staff, refusing to speak with a psychiatrist or other [facility] staff since that time. He continues to be uncooperative with treatment, refusing all groups, refusing to talk with staff or clinicians, and refusing mouth checks after Zyprexa Zydis, which he states he does not need. He is refusing a long-acting injectable, and has refused to meet with his outpatient immigration case manager and prison staff. He has a clear history of dangerous behaviors during periods of nonadherence with medications in the community, and inpatient psychiatric hospitalization remains the least intensive, least restrictive level of care consistent with the patient's clinical and safety needs. He was referred to [facility] 03/23/2019. He refused to participate in a diversion meeting with his prison director and outpatient immigration case manager today. (1) Schizophrenia: 02/25 - Continue home medication regimen - as refusing offerings of his antipsychotic, will likely require olanzapine IM (or alternative agent) over objection, given clear evidence of paranoia and delusional thought process - previously stabilized on this medication - Pt agreeable to taking all other medications, with exception of antipsychotic as mentioned above - Admitted to a locked inpatient behavioral health unit, on q15 minute safety checks - Encourage medication initiation/adjustments as indicated - Encourage participation in group and recreational therapies - Gather collateral information from outpatient providers and prison staff - Suggest family meeting to involve outpatient supports in safety planning - Reschedule appropriate aftercare appointments 02/26 -Patient indicates willingness to sign a release for the [facility] prison, will get collateral from their staff. -File for 303 involuntary commitment to be held tomorrow. -Recommend medications over objection, with an IM Zyprexa backup for refusal of oral medication. Involve outpatient treatment team to discuss ways to im prove stability and compliance; consider long-acting injectable antipsychotic. -Order fasting labs for monitoring on an atypical antipsychotic once patient is more cooperative. 02/27 -The patient was retrained at his involuntary commitment hearing (303) this morning. -He has continuously and consistently refused psychiatric medications to date. However, today, when I explained that that a option that might become necessary in his case is medication over objection, and an intramuscular form, the patient said that he understood and that he would try medications that I prescribe. His initial preference would be olanzapine, but because olanzapine is not available in a long acting depot form, we would first like to try aripiprazole. He indicates that he is taken aripiprazole in the past and has been able to tolerate it, although he does not believe that it has been particularly helpful. -A trial dose of aripiprazole 15 mg by mouth, as a one-time dose, has been ordered and he assessed for efficacy. 02/28 -Appears to be tolerating initiation of Abilify so far. Remains delusional, paranoid. May consider further titration tomorrow -Aricept discontinued at patient's request on 02/27/2019. The medication has not been demonstrated to be efficacious for cognitive impairment associated with long-standing schizophrenia however we should be vigilant for slowing of mentation following discontinuation. 03/01 Patient fixated and irrational regarding access to clothing item as above today. Hospital environment becoming incorporated and delusions. Consider possibility that the aripiprazole is contributing to activation. We will increase to 20 mg tomorrow and also start Risperdal 1 mg p.o. twice daily as as needed. 03/02 - Continue with aripiprazole at 20mg daily, consider need for further titration - if tolerating and effective, eventual plan will be for conversion to Abilify Maintena - Pt has not yet utilized risperidone 03/03 - Increase aripiprazole to 25mg (equivalent to 30mg pill) and change to liquid formulation to decrease risk of cheeking/nonadherence, as patient does not believe he needs medication and had been noncompliant prior to hospitalization. - Fasting glucose and lipid profile ordered for tomorrow for monitoring on an atypical antipsychotic. - Private room due to psychosis, agitation, and inappropriate disrobing/sexual behavior. - Meeting with [facility] and [facility] staff when patient able to tolerate. 03/04 - Continue aripiprazole 25mg liquid (30mg pill equivalent) and continue to observe for improvement in thought process/content - consider conversion to Maintena if effective, versus trial of another agent if improvement remains limited - Fasting labs reviewed - all values WNL - Continue medically necessary private room - Request meeting with [facility] staff, in order to obtain details about patient's proximity to baseline 03/05 -Patient refusing liquid aripiprazole, but agrees to take the pill: Ordered 30 mg daily. -Schedule meeting with his immigration case manager, [facility] and psych rehab staff. Consider involuntary outpatient commitment at the time of discharge. 03/06 -The patient has improved in that he is more reality based at this point. He continues to harbor fixed, systematized delusions, but is generally able to focus on reality based topics. -Although the patient tells me that he does not feel that aripiprazole has been effective, he is able to accept my opinion in the opinion of the staff that he has improved in response to aripiprazole. -The patient's main objection to aripiprazole oral solution is that he does not like the way it tastes, and within this context, he tells us that he is willing to accept Abilify Maintenaand requests that it be injected into his buttock. Abilify Maintena 300 mg IM ordered, and oral Abilify discontinued. We will resume oral Abilify if the patient subsequently changes his mind and refuses the injection. 03/07 resuming abilfiy oral given his refusal of FARAH form of abilify 03/08 is taking abilify po form but refusing abilify maintena form. advise close monitoring for potential of checking given pt's tendency to not want to take medications. 03/09 -The patient is flatly refusing to take aripiprazole in the form of Abilify Maintena. He is also been hesitant to take oral Abilify, but has been doing so. -The patient's lack of cooperation is thought possibly to be related to an un-expressed desire to not be discharged back to the community. He told me today that he left his meeting with his community providers after a few seconds because "just the side of them made me extremely anxious. My pulse elevated to 140." Later, he told me that he was still anxious about it and his pulse was "still around 130." The patient allowed me to take his pulse, and it was approximately 76. At that point he said, "did I say pulse? I meant systolic blood pressure." And when I pointed out that his systolic blood pressure of 130 is not considered to be a particular concern, he said "I mean diastolic." -Our hope had been that the patient would agree to accept a Depo form of medication. He was refusing Haldol Decanoate because of various side effects. Risperidone constant was ruled out as a first-line Depo medication because of the frequency of administration (the patient tends to get into power struggles over medications) and because he says that he is sensitive to "big needles." Invega would be an option, but currently the patient is being so uncooperative that our concern would be that he would cheek the oral tablets that we would have to give him first. Accordingly, the new strategy will be to discontinue Abilify, and resume olanzapine with olanzapine IM over objection if necessary. We will begin the olanzapine Zydis 20 mg at bedtime 03/10 -The patient took the prescribed dose of olanzapine Zydis 20 mg at bedtime last night. Today, he tells me that it "did not help at all." However, staff report that he has been somewhat more agreeable, more pleasant, and less paranoid today. -As he has with other providers, today he told me that I should have given him olanzapine 5 mg "to start", and I explained that he was already on olanzapine 20 mg when he came into the hospital and we know that he is able to tolerate that dose. He tells me that he did, in fact tolerate the dose and is not aware of any side effects, but, somewhat illogically, insisted that the dose was "too high for a starting dose." 03/11 - Continue current medication regimen at this time - olanzapine 20mg daily - Encourage participation in the milieu and in group programming as tolerated 03/12 -Continue current medication regimen. The patient's condition has not yet improved. -The patient does participate in select groups, but often tends to be disruptive. 03/13 -Today, the patient seems to be somewhat more cooperative and less frankly delusional. It was possible to engage in a mostly reality based conversation for 5 or 10 minutes at a time. Also, although he was unhappy with me when I refused to provide him with a dose of Valium for anxiety, he was able to remain pleasant and calm at this time, did not storm from the room." 03/14 and 03/15 -no change in medication will work on therapeutic alliance given patient is not participating 03/16 -304 involuntary commitment granted. -Patient remains completely uncooperative with treatment, refused his Zyprexa Zydis last evening, but then ultimately took it before he received the injection. I have a high suspicion for cheeking of antipsychotic medication, and we will continue to be vigilant with mouth checks, and work towards a long- acting injectable. 03/17 -Patient has been on Zyprexa 20 mg at bedtime for 1 week, with limited response. He is refusing to discuss other medication options. Per records, he has been prescribed up to 30 mg olanzapine in the past, so will increase his dose to this previously tolerated dose, as it is 1 of the few medications he has been willing to take. Continue IM backup for refusal, and Zyprexa Zydis formulation to decrease risk of cheeking. He is not compliant with mouth checks, but have asked staff to try to observe him for 10 minutes after taking the Zydis to ensure he is not spitting it out before it dissolves. 03/18 -Continue Zyprexa Zydis 30 mg at bedtime with IM backup. Consider switch to a different medication (?oral paliperidone with IM backup) if irritability and agitation continues. He has tried virtually every atypical antipsychotic and reports none of them were effective (although some trials were short due to nonadherence) and has a history of dystonia on haloperidol. Clozapine would be a reasonable choice, but he has been unwilling to even discuss medication options. -Consider some component of cognitive decline which could be contributing to his worsening presentation and will need to be monitored and worked up further once he is more psychiatrically stable. -Refer to [facility] in the event that he does not improve and long-term inpatient treatment is needed. 03/19 - Proceed with [facility] referral. 03/20 - Continue current medication regimen; patient refused EKG and CXR yesterday - refused again today - Continue attempts to gather information to make a referral to [facility] 03/23 - Proceed with [facility] referral - patient has refused EKG and CXR for multiple attempts. We will send most recent tests available - Continue current medication regimen at this time 03/24 -Attempted to hold diversion meeting with his outpatient [facility], prison director, and the [facility] MH/ID; patient refused to attend or participate in the meeting. (2) Substance abuse: 02/25 - Pt has reported history of substance abuse, and recommendation has consistently been for avoidance of substances with significant abuse potential. - PDMP queried - most recent prescriptions below - lorazepam 0.5mg #60 tabs for 30 day supply - Dr. Alves - filled 02/12/2019 - alprazolam 0.5mg #90 tabs for 30 day supply - Dr. Lopez - filled 01/16/2019 - temazepam 30mg #30 caps for 30 day supply - Dr. Lopez - filled 01/16/2019 - Will continue lorazepam 0.5mg BID prn on admission, as only medication that is seemingly active - toxicology screen is negative for benzodiazepines, which questions if he has been taking the medication appropriately - Ideally will taper and discontinue the lorazepam, as recommendation remains that substances with abuse potential be avoided 02/26 -The patient's outpatient providers, during a meeting this morning, report that the patient tends to successfully convince physicians to prescribe benzodiazepines for him and that, in the past, he has abused him to the degree that he is practically obtunded. 02/27 -A repeat check of the PDMP reveals that the patient is consistently being prescribed lorazepam 0.5 mg twice daily (number 60/month) by a Dr. Brent Alves. He is also being prescribed alprazolam 0.[address] mg [address] Jeff Lopez, with the most recent previous prescription of alprazolam being on 01/16/[address] Lopez also prescribed temazepam 30 mg capsules #30 on 01/16/2019. According to his residential providers, no temazepam capsules were found among the patient's belongings. His most recent prescription for lorazepam 0.5 mg tablets was filled on 02/12/2019. 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 In the past, he reportedly has used clonazepam and temazepam. -I advised the patient that because of his history of misuse of benzodiazepines we would not be prescribing benzodiazepines during his hospital stay. An as needed order for lorazepam has not been used during hospital stay, and I discontinued the order today. 03/02 - Will need to coordinate care with his PCP and outpatient psychiatrist prior to discharge regarding the above. 03/04 - Charge nurse spoke with the above offices regarding concern for continued benzodiazepine prescriptions - Records will be faxed to their offices on discharge, as all benzodiazepines were discontinued during this hospitalization 03/06 -The patient did not request benzodiazepines and did not complain of anxiety today. I suggested to him that perhaps Abilify is also helping with anxiety in his case, and he responded by saying "perhaps." 03/09 -Today, the patient is insisting that what he needs is "benzodiazepines," and explains that the reason he "needs" benzodiazepines is that he has "benzodiazepine receptors," and that he is the only medications that work. He is unable to process warnings about the risks of benzodiazepines in the elderly, including increased risk of falls and mortality. Clearly, the patient is seeking benzodiazepines and has no insight into the associated risks. He also insists that he has never had trouble with benzodiazepines in the past, although there is well-documented of this. 03/10 -Today, the patient repeated his insistence that he needs benzodiazepines and that benzodiazepines are the only medications that work because he has "benzodiazepine receptors." After being told that everyone has central nervous system receptors to which benzodiazepines may attach, he replied, "That may be, but some of people need to have benzodiazepines forearm benzodiazepine receptors. 03/12 -Continues to request Benzodiazepines. 03/13 -Requests Valium for his "benzodiazepines." (3) Hypertension: 02/25 - Continue home dose of clonidine 0.1mg qHS 03/01 Watch mildly elevated blood pressures as patient has been refusing clonidine 03/03 - BP normal past two days, and low today 03/10 -The patient's blood pressure today was 136/73. His pulse was 71 03/14 - elevated BP it is not urgent but will need monitored. 03/15 - BP WNL Inventory Assets Strengths: -Intelligence. Support of community providers. Well educated. Needs: Resume symptom-stabilizing medication regimen, coordinate care with prison Risk Factors Assessment Male: Yes : Yes Do You Have Access To A Gun?: No Health Problems: Yes Mental Health Diagnoses: Yes Substance Use Disorders: Yes Protective Factors Assessment Jehovah'S Witness Beliefs: No : No Responsible for Young Children: No Employed: No Stable Relationships: No Supportive Family: No Good Rapport with Provider: No Interval History Identifying Information SCOTT ROBERTO is a 73-year-old M who currently lives at a [facility] in [place]. Pt has a history of schizophrenia and is known to our unit from several previous admissions, most recently in 09/2016. Pt and was admitted on 02/24/19 16:40 on a 302 involuntary commitment for exacerbation of schizophrenia and heightened paranoia resulting in belief he needed to hide in a dumpster to seek refuge from impending bombings. Pt was found by [facility] staff and brought to the ED by police. He is on a 304 involuntary commitment as of 03/16/19. Chief Complaint "My mill control operator said not to talk to you people". Review of Systems Notes Patient refuses to participate in ROS. Sleep Information Total Hours of Sleep: 6.75 Sleep Comments: pt on q-15 minute checks Meal Information Percent Meal Consumed - Breakfast: 100 Percent Meal Consumed - Lunch: 50 Percent Meal Consumed - Dinner: 100 Nutrition Comment: per meal record Subjective Subjective Patient was seen & assessed and interval progress reviewed with Nursing and social work. Staff report he is refusing all groups, isolating in his room, and appears thought blocked. Yesterday he had multiple episodes where he had a lengthy pause before stating he did not remember what he was going to say. His affect is flat, and he is not interacting with staff or peers. He requested additional medication (had milk of magnesia and Senokot already) for constipa tion, and mag citrate was added. He has been coming to the day room to eat his meals. On my assessment, and went to see him in his room, and he told me to leave, stating that his mill control operator told him not to talk to anyone here. His blended immigration case manager and banana ripening room supervisor came to the unit for a scheduled meeting to discuss his progress in treatment, state hospital referral, and the possibility of diversion. He refused to speak with them as well, and refused to attend the meeting. For details of meeting, see note from social work. In summary, his treatment course thus far was reviewed, including his extreme resistance to participating in treatment and taking medication, refusal to take a long-acting injectable medication or participate in groups or therapy. He has also refused the chest x-ray and EKG which were requested for the [facility] referral. The [facility] supports long-term treatment at the [facility]. It is unclear if the [facility] would still be an option for him, as they may need to give up his bed. The [facility] director safety council to speak with him today to advise him that this may occur if he is not improving and able to engage fully in treatment and efforts to divert him from the [facility]. Physical Exam Psychiatric Orientation: alert; + uncooperative Apperance: appropriately dressed (black stretch pants, sport sandals, long sleeved shirt - same clothes ) Eye Contact: good eye contact Motor Behavior: steady gait and station and no abnormal motor movements Speech: normal rate/rhythm/volume of speech angry tone Affect: + angry affect and + constricted affect Won't answer questions Thought Process: + perseveration Refuses to answer questions Cognition: language grossly intact Insight: + severely impaired insight Judgement: + severely impaired judgement Vital Signs (Past 24 Hours) Last Vital Signs Temp 36.6 C 03/24/19 06:46 Pulse 84 03/24/19 06:46 Resp 18 03/24/19 06:46 BP 115/75 03/24/19 06:46 Pulse Ox 96 02/24/19 08:10 Results & Data Current Inpatient Medications Current Inpatient Medications: Current Inpatient Medications Acetaminophen (Tylenol) 650 mg PO Q4H PRN PRN Reason: Headache or Minor Fever Stop: 03/26/19 16:39 Al Hydrox/Mg Hydrox/Simethicone (Maalox) 30 ml PO Q4H PRN PRN Reason: GI Upset Stop: 03/26/19 16:39 Benztropine Mesylate (Cogentin) 0.5 mg PO BID PRN PRN Reason: dystonia Stop: 03/26/19 20:59 Bismuth Subsalicylate (Kaopectate) 15 ml PO PRN PRN PRN Reason: Loose Stool Stop: 03/26/19 16:39 Clonidine HCl (Catapres) 0.1 mg PO HS MAG Stop: 03/26/19 20:59 Last Admin: 03/23/19 21:52 Dose: 0.1 mg Documented by: Cyanocobalamin (Vitamin B-12) 500 mcg PO DAILY MAG Stop: 03/27/19 08:59 Last Admin: 03/24/19 07:57 Dose: 500 mcg Documented by: Hydroxyzine HCl (Vistaril) 25 mg PO Q4H PRN PRN Reason: Anxiety Stop: 03/26/19 16:39 Hydroxyzine HCl (Vistaril) 50 mg PO HSZ PRN PRN Reason: Insomnia Stop: 03/26/19 16:39 Magnesium Citrate (Citrate) 148 ml PO BID PRN PRN Reason: constipation Stop: 04/22/19 20:59 Last Admin: 03/23/19 17:19 Dose: 148 ml Documented by: Magnesium Hydroxide (Milk Of Magnesia) 30 ml PO DAILY PRN PRN Reason: Heartburn Stop: 03/26/19 16:39 Last Admin: 03/22/19 12:50 Dose: 30 ml Documented by: Magnesium Oxide (Mag-Ox) 400 mg PO DAILY MAG Stop: 03/27/19 08:59 Last Admin: 03/24/19 07:57 Dose: 400 mg Documented by: Miscellaneous (Remove Nicoderm Patch) 1 ea N/A HS [facility] Stop: 03/26/19 20:59 Last Admin: 03/23/19 21:54 Dose: Not Given Documented by: Multivitamins (Multivitamin Tab) 1 tab PO DAILY MAG Stop: 03/27/19 08:59 Last Admin: 03/24/19 07:57 Dose: 1 tab Documented by: Nicotine (Nicoderm Cq) 14 mg TD QAM MAG Stop: 03/27/19 08:59 Last Admin: 03/24/19 07:57 Dose: Not Given Documented by: Olanzapine (Zyprexa) 10 mg IM HS PRN PRN Reason: Undecided Stop: 04/08/19 21:59 Olanzapine (Zyprexa Zydis Od) 30 mg PO HS MAG Stop: 04/16/19 21:59 Last Admin: 03/23/19 21:52 Dose: 30 mg Documented by: Pyridoxine HCl (Vitamin B-6) 100 mg PO DAILY MAG Stop: 03/27/19 08:59 Last Admin: 03/24/19 07:57 Dose: 100 mg Documented by: Risperidone (Risperdal M) 1 mg PO BID PRN PRN Reason: psychosis Stop: 03/31/19 10:36 Sodium Chloride (Ruby Nasal) 1 - 2 sprays NA PRN PRN PRN Reason: Nasal Dryness/Congestion Stop: 03/26/19 16:39 Mental Health & Subst Abuse Tx Therapist Name of Therapist: Sammy Professor Of Surgery Name of Professor Of Surgery: Shruti Lopez Phone Number for Professor Of Surgery: Case Management Appointment Comment: [address], [place] [address] Post Discharge Appointments Primary Care Physician Name Of Family Doctor: Dr. Lopez Contact Information Discharge Discharge Address: [address] [place] [id number] CPT Code CPT Code 22517 (1) Schizophrenia Schizophrenia type: paranoid schizophrenia Qualified Code(s): F20.0 - Paranoid schizophrenia (2) Hypertension Hypertension type: essential hypertension Qualified Code(s): I10 - Essential (primary) hypertension
[2019-03-24] MEDS: cloNIDine HCL 0.1 MG TAB PO SCH (21:15)
[2019-03-24] MEDS: OLANZAPINE ZYDIS 10 MG ORALLY DIS. TAB PO SCH (21:15)
[2019-03-25] MEDS ORDERED: SODIUM CHLORIDE 0.65% NA SOLN 45 ML (OCEAN) PRN (08:45)
[2019-03-25] MEDS ORDERED: BISMUTH SUBSALICYLATE PER ML OMNICELL CHARGE PO PRN (08:45)
[2019-03-25] MEDS ORDERED: MAGNESIUM HYDROXIDE SUSP 30 ML UDC PO PRN (08:45)
[2019-03-25] MEDS ORDERED: ALUMINUM/MAGNESIUM SUSP 30 ML UDC PO PRN (08:45)
[2019-03-25] MEDS ORDERED: BENZTROPINE MESYLATE 0.5 MG TAB PO PRN (08:45)
[2019-03-25] MEDS ORDERED: OLANZapine 10 MG/2.1 ML SDV IM PRN (08:45)
[2019-03-25] MEDS ORDERED: ACETAMINOPHEN 325 MG TAB PO PRN (08:45)
[2019-03-25] MEDS ORDERED: RISPERIDONE ODT 1MG PO PRN (08:45)
[2019-03-25] MEDS: CYANOCOBALAMIN 500 MCG TABLET (VITAMIN B-12) PO SCH (09:48)
[2019-03-25] MEDS: MAGNESIUM OXIDE 400 MG TAB PO SCH (09:48)
[2019-03-25] MEDS: MULTIVITAMIN TAB PO SCH (09:48)
[2019-03-25] MEDS: PYRIDOXINE HCL 50 MG TAB PO SCH (09:48)
[2019-03-25] MEDS: NICOTINE 14 MG/24 HR PATCH TD SCH (09:49)
--- NOTE | 2019-03-25 12:59 | Psychiatric Progress Note ---
Date of Service March 25, 2019 Impression / Recommendations Impression 73-year-old male with schizophrenia who lives at the [facility] and was admitted involuntarily on 02/24/2019 with delusions, hallucinations, irritability and erratic behavior after rapid decompensation 1-2 weeks after he stopped taking his antipsychotic. He was found in a dumpster, floridly delusional, and was combative with [facility] staff. He refused resumption of olanzapine, but ultimately agreed to take aripiprazole. It initially appeared that he was responding favorably, although not completely, to the addition of aripiprazole. Because of the patient's long history of dangerous behaviors in the community associated with nonadherence with psychiatric medications, the patient's behavioral health unit treatment team and his outpatient providers recommended a depo antipsychotic medication, and he initially agreed to Abilify Maintena; however, refused it when staff attempted to administer the injection (03/13/2019), and subsequently became much more oppositional and hostile towards staff, refusing to speak with a psychiatrist or other [email or web address] staff since that time. He continues to be uncooperative with treatment, refusing all groups, refusing to talk with staff or clinicians, and refusing mouth checks after Zyprexa Zydis, which he states he does not need. He is refusing a long-acting injectable, and has refused to meet with his outpatient heel caser and [facility] staff. He has a clear history of dangerous behaviors during periods of nonadherence with medications in the community, and inpatient psychiatric hospitalization remains the least intensive, least restrictive level of care consistent with the patient's clinical and safety needs. He was referred to [facility] 03/23/2019. He refused to participate in a diversion meeting with his [facility] director and outpatient heel caser on 03/24/19. It was reported his [facility] bed will not be held if he continues to refuse treatment and meetings - he is making no progress toward improving on this. (1) Schizophrenia: 02/25 - Continue home medication regimen - as refusing offerings of his antipsychotic, will likely require olanzapine IM (or alternative agent) over objection, given clear evidence of paranoia and delusional thought process - previously stabilized on this medication - Pt agreeable to taking all other medications, with exception of antipsychotic as mentioned above - Admitted to a locked inpatient behavioral health unit, on q15 minute safety checks - Encourage medication initiation/adjustments as indicated - Encourage participation in group and recreational therapies - Gather collateral information from outpatient providers and [facility] staff - Suggest family meeting to involve outpatient supports in safety planning - Reschedule appropriate aftercare appointments 02/26 -Patient indicates willingness to sign a release for the [facility], will get collateral from their staff. -File for 303 involuntary commitment to be held tomorrow. -Recommend medications over objection, with an IM Zyprexa backup for refusal of oral medication. Involve outpatient treatment team to discuss ways to improve stability and compliance; consider long-acting injectable antipsychotic. -Order fasting labs for monitoring on an atypical antipsychotic once patient is more cooperative. 02/27 -The patient was retrained at his involuntary commitment hearing (303) this morning. -He has continuously and consistently refused psychiatric medications to date. However, today, when I explained that that a option that might become necessary in his case is medication over objection, and an intramuscular form, the patient said that he understood and that he would try medications that I prescribe. His initial preference would be olanzapine, but because olanzapine is not available in a long acting depot form, we would first like to try aripiprazole. He indicates that he is taken aripiprazole in the past and has been able to tolerate it, although he does not believe that it has been particularly helpful. -A trial dose of aripiprazole 15 mg by mouth, as a one-time dose, has been ordered and he assessed for efficacy. 02/28 -Appears to be tolerating initiation of Abilify so far. Remains delusional, paranoid. May consider further titration tomorrow -Aricept discontinued at patient's request on 02/27/2019. The medication has not been demonstrated to be efficacious for cognitive impairment associated with long-standing schizophrenia however we should be vigilant for slowing of mentation following discontinuation. 03/01 Patient fixated and irrational regarding access to clothing item as above today. Hospital environment becoming incorporated and delusions. Consider possibility that the aripiprazole is contributing to activation. We will increase to 20 mg tomorrow and also start Risperdal 1 mg p.o. twice daily as as needed. 03/02 - Continue with aripiprazole at 20mg daily, consider need for further titration - if tolerating and effective, eventual plan will be for conversion to Abilify Maintena - Pt has not yet utilized risperidone 03/03 - Increase aripiprazole to 25mg (equivalent to 30mg pill) and change to liquid formulation to decrease risk of cheeking/nonadherence, as patient does not believe he needs medication and had been noncompliant prior to hospitalization. - Fasting glucose and lipid profile ordered for tomorrow for monitoring on an atypical antipsychotic. - Private room due to psychosis, agitation, and inappropriate disrobing/sexual behavior. - Meeting with [facility] and [facility] staff when patient able to tolerate. 03/04 - Continue aripiprazole 25mg liquid (30mg pill equivalent) and continue to observe for improvement in thought process/content - consider conversion to Maintena if effective, versus trial of another agent if improvement remains limited - Fasting labs reviewed - all values WNL - Continue medically necessary private room - Request meeting with [facility] staff, in order to obtain details about patient's proximity to baseline 03/05 -Patient refusing liquid aripiprazole, but agrees to take the pill: Ordered 30 mg daily. -Schedule meeting with his heel caser, [facility] and psych rehab staff. Consider involuntary outpatient commitment at the time of discharge. 03/06 -The patient has improved in that he is more reality based at this point. He continues to harbor fixed, systematized delusions, but is generally able to focus on reality based topics. -Although the patient tells me that he does not feel that aripiprazole has been effective, he is able to accept my opinion in the opinion of the staff that he has improved in response to aripiprazole. -The patient's main objection to aripiprazole oral solution is that he does not like the way it tastes, and within this context, he tells us that he is willing to accept Abilify Maintenaand requests that it be injected into his buttock. Abilify Maintena 300 mg IM ordered, and oral Abilify discontinued. We will resume oral Abilify if the patient subsequently changes his mind and refuses the injection. 03/07 resuming abilfiy oral given his refusal of FARAH form of abilify 03/08 is taking abilify po form but refusing abilify maintena form. advise close monitoring for potential of checking given pt's tendency to not want to take medications. 03/09 -The patient is flatly refusing to take aripiprazole in the form of Abilify Maintena. He is also been hesitant to take oral Abilify, but has been doing so. -The patient's lack of cooperation is thought possibly to be related to an un-expressed desire to not be discharged back to the community. He told me today that he left his meeting with his community providers after a few seconds because "just the side of them made me extremely anxious. My pulse elevated to 140." Later, he told me that he was still anxious about it and his pulse was "still around 130." The patient allowed me to take his pulse, and it was approximately 76. At that point he said, "did I say pulse? I meant systolic blood pressure." And when I pointed out that his systolic blood pressure of 130 is not considered to be a particular concern, he said "I mean diastolic." -Our hope had been that the patient would agree to accept a Depo form of medication. He was refusing Haldol Decanoate because of various side effects. Risperidone constant was ruled out as a first-line Depo medication because of the frequency of administration (the patient tends to get into power struggles over medications) and because he says that he is sensitive to "big needles." Invega would be an option, but currently the patient is being so uncooperative that our concern would be that he would cheek the oral tablets that we would have to give him first. Accordingly, the new strategy will be to discontinue A bilify, and resume olanzapine with olanzapine IM over objection if necessary. We will begin the olanzapine Zydis 20 mg at bedtime 03/10 -The patient took the prescribed dose of olanzapine Zydis 20 mg at bedtime last night. Today, he tells me that it "did not help at all." However, staff report that he has been somewhat more agreeable, more pleasant, and less paranoid today. -As he has with other providers, today he told me that I should have given him olanzapine 5 mg "to start", and I explained that he was already on olanzapine 20 mg when he came into the hospital and we know that he is able to tolerate that dose. He tells me that he did, in fact tolerate the dose and is not aware of any side effects, but, somewhat illogically, insisted that the dose was "too high for a starting dose." 03/11 - Continue current medication regimen at this time - olanzapine 20mg daily - Encourage participation in the milieu and in group programming as tolerated 03/12 -Continue current medication regimen. The patient's condition has not yet improved. -The patient does participate in select groups, but often tends to be disruptive. 03/13 -Today, the patient seems to be somewhat more cooperative and less frankly delusional. It was possible to engage in a mostly reality based conversation for 5 or 10 minutes at a time. Also, although he was unhappy with me when I refused to provide him with a dose of Valium for anxiety, he was able to remain pleasant and calm at this time, did not storm from the room." 03/14 and 03/15 -no change in medication will work on therapeutic alliance given patient is not participating 03/16 -304 involuntary commitment granted. -Patient remains completely uncooperative with treatment, refused his Zyprexa Zydis last evening, but then ultimately took it before he received the injection. I have a high suspicion for cheeking of antipsychotic medication, and we will continue to be vigilant with mouth checks, and work towards a long- acting injectable. 03/17 -Patient has been on Zyprexa 20 mg at bedtime for 1 week, with limited response. He is refusing to discuss other medication options. Per records, he has been prescribed up to 30 mg olanzapine in the past, so will increase his dose to this previously tolerated dose, as it is 1 of the few medications he has been willing to take. Continue IM backup for refusal, and Zyprexa Zydis formulation to decrease risk of cheeking. He is not compliant with mouth checks, but have asked staff to try to observe him for 10 minutes after taking the Zydis to ensure he is not spitting it out before it dissolves. 03/18 -Continue Zyprexa Zydis 30 mg at bedtime with IM backup. Consider switch to a different medication (?oral paliperidone with IM backup) if irritability and agitation continues. He has tried virtually every atypical antipsychotic and reports none of them were effective (although some trials were short due to nonadherence) and has a history of dystonia on haloperidol. Clozapine would be a reasonable choice, but he has been unwilling to even discuss medication options. -Consider some component of cognitive decline which could be contributing to his worsening presentation and will need to be monitored and worked up further once he is more psychiatrically stable. -Refer to [facility] in the event that he does not improve and long-term inpatient treatment is needed. 03/19 - Proceed with [facility] referral. 03/20 - Continue current medication regimen; patient refused EKG and CXR yesterday - refused again today - Continue attempts to gather information to make a referral to [facility] 03/23 - Proceed with [facility] referral - patient has refused EKG and CXR for multiple attempts. We will send most recent tests available - Continue current medication regimen at this time 03/24 -Attempted to hold diversion meeting with his outpatient M, [facility] director, and the [facility]; patient refused to attend or participate in the meeting. 03/25 - Continue treatment plan as above - no change in patient's condition and he remains unwilling to participate meaningfully in treatment - Continue with [facility] referral (2) Substance abuse: 02/25 - Pt has reported history of substance abuse, and recommendation has consistently been for avoidance of substances with significant abuse potential. - PDMP queried - most recent prescriptions below - lorazepam 0.5mg #60 tabs for 30 day supply - Dr. Alves - filled 02/12/2019 - alprazolam 0.5mg #90 tabs for 30 day supply - Dr. Lopez - filled 01/16/2019 - temazepam 30mg #30 caps for 30 day supply - Dr. Lopez - filled 01/16/2019 - Will continue lorazepam 0.5mg BID prn on admission, as only medication that is seemingly active - toxicology screen is negative for benzodiazepines, which questions if he has been taking the medication appropriately - Ideally will taper and discontinue the lorazepam, as recommendation remains that substances with abuse potential be avoided 02/26 -The patient's outpatient providers, during a meeting this morning, report that the patient tends to successfully convince physicians to prescribe benzodiazepines for him and that, in the past, he has abused him to the degree that he is practically obtunded. 02/27 -A repeat check of the PDMP reveals that the patient is consistently being prescribed lorazepam 0.5 mg twice daily (number 60/month) by a Dr. Brent Alves. He is also being prescribed alprazolam 0.[address] mg [address] Jeff Lopez, with the most recent previous prescription of alprazolam being on 01/16/[address] Lopez also prescribed temazepam 30 mg capsules #30 on 01/16/2019. According to his residential providers, no temazepam capsules were found among the patient's belongings. His most recent prescription for lorazepam 0.5 mg tablets was filled on 02/12/2019. 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 In the past, he reportedly has used clonazepam and temazepam. -I advised the patient that because of his history of misuse of benzodiazepines we would not be prescribing benzodiazepines during his hospital stay. An as needed order for lorazepam has not been used during hospital stay, and I discontinued the order today. 03/02 - Will need to coordinate care with his PCP and outpatient psychiatrist prior to discharge regarding the above. 03/04 - Charge nurse spoke with the above offices regarding concern for continued benzodiazepine prescriptions - Records will be faxed to their offices on discharge, as all benzodiazepines were discontinued during this hospitalization 03/06 -The patient did not request benzodiazepines and did not complain of anxiety today. I suggested to him that perhaps Abilify is also helping with anxiety in his case, and he responded by saying "perhaps." 03/09 -Today, the patient is insisting that what he needs is "benzodiazepines," and explains that the reason he "needs" benzodiazepines is that he has "benzodiazepine receptors," and that he is the only medications that work. He is unable to process warnings about the risks of benzodiazepines in the elderly, including increased risk of falls and mortality. Clearly, the patient is seeking benzodiazepines and has no insight into the associated risks. He also insists that he has never had trouble with benzodiazepines in the past, although there is well-documented of this. 03/10 -Today, the patient repeated his insistence that he needs benzodiazepines and that benzodiazepines are the only medications that work because he has "benzodiazepine receptors." After being told that everyone has central nervous system receptors to which benzodiazepines may attach, he replied, "That may be, but some of people need to have benzodiazepines forearm benzodiazepine receptors. 03/12 -Continues to request Benzodiazepines. 03/13 -Requests Valium for his "benzodiazepines." (3) Hypertension: 02/25 - Continue home dose of clonidine 0.1mg qHS 03/01 Watch mildly elevated blood pressures as patient has been refusing clonidine 03/03 - BP normal past two days, and low today 03/10 -The patient's blood pressure today was 136/73. His pulse was 71 03/14 - elevated BP it is not urgent but will need monitored. 03/15 - BP WNL Inventory Assets Strengths: -Intelligence. Support of community providers. Well educated. Needs: Resume symptom-stabilizing medication regimen, coordinate care with [facility] Risk Factors Assessment Male: Yes : Yes Do You Have Access To A Gun?: No Health Problems: Yes Mental Health Diagnoses: Yes Substance Use Disorders: Yes Protective Factors Assessment Buddhism Beliefs: No : No Responsible for Young Children: No Employed: No Stable Relationships: No Supportive Family: No Good Rapport with Provider: No Interval History Identifying Information SCOTT ROBERTO is a 73-year-old M who currently lives at a [facility] in [place]. Pt has a history of schizophrenia and is known to our unit from several previous admissions, most recently in 09/2016. Pt and was admitted on 02/24/19 16:40 on a 302 involuntary commitment for exacerbation of schizophrenia and heightened paranoia resulting in belief he needed to hide in a dumpster to seek refuge from impending bombings. Pt was found by [facility] staff and brought to the ED by police. He is on a 304 involuntary commitment as of 03/16/19. Review of Systems Notes Pt unwilling to participate in conversation, unable to complete accurate review of systems Sleep Information Total Hours of Sleep: 7.25 Sleep Comments: out for cereal at 0100. Meal Information Percent Meal Consumed - Breakfast: 100 Percent Meal Consumed - Lunch: 100 Percent Meal Consumed - Dinner: 100 Nutrition Comment: per meal record Subjective Subjective Patient was seen & assessed and interval progress reviewed with Treatment Team. Staff report the patient is reportedly compliant with medications, but has been refusing groups and has been largely isolative in his room. He also refused a meeting with his [facility] staff this week - with staff stating they will not hold the patient's [facility] bed if he is not participating in treatment. Attempts were made today to meet with patient, who continues to refuse visits with psychiatric clinicians. Pt acknowledged this provider's presence, but did not verbally respond to any questioning. Pt was informed that we would like to be able to help him feel better and work toward a discharge home, but that we needed to be able to have meaningful conversations with him. He continued to keep his eyes closed and did not respond to this provider. Physical Exam Psychiatric Orientation: alert (awoken from sleep with verbal stimuli, then kept eyes closed); + uncooperative (unwilling to participate in conversation) Apperance: appropriately dressed, appropriately groomed and appeared stated age Eye Contact: + poor eye contact (kept eyes closed for majority of encounter) Motor Behavior: no abnormal motor movements (observed while resting in bed) Speech: + abnormal rate/rhythm/volume of speech (patient does not respond verbally to any questions) Affect: + flat affect, + irritable affect and + constricted affect Insight: + severely impaired insight Judgement: + severely impaired judgement Vital Signs (Past 24 Hours) Last Vital Signs Temp 36.6 C 03/25/19 06:49 Pulse 73 03/25/19 06:51 Resp 18 03/25/19 06:49 BP 103/65 03/25/19 06:51 Pulse Ox 96 02/24/19 08:10 Results & Data Current Inpatient Medications Current Inpatient Medications: Current Inpatient Medications Acetaminophen (Tylenol) 650 mg PO Q4H PRN PRN Reason: Headache or Minor Fever Stop: 04/24/19 08:39 Al Hydrox/Mg Hydrox/Simethicone (Maalox) 30 ml PO Q4H PRN PRN Reason: GI Upset Stop: 04/24/19 08:39 Benztropine Mesylate (Cogentin) 0.5 mg PO BID PRN PRN Reason: dystonia Stop: 04/24/19 08:39 Bismuth Subsalicylate (Kaopectate) 15 ml PO PRN PRN PRN Reason: Loose Stool Stop: 04/24/19 08:39 Clonidine HCl (Catapres) 0.1 mg PO HS MAG Stop: 04/24/19 21:59 Cyanocobalamin (Vitamin B-12) 500 mcg PO DAILY MAG Stop: 04/24/19 08:59 Last Admin: 03/25/19 09:48 Dose: 500 mcg Documented by: Hydroxyzine HCl (Vistaril) 50 mg PO HSZ PRN PRN Reason: Insomnia Stop: 04/24/19 08:44 Hydroxyzine HCl (Vistaril) 25 mg PO Q4H PRN PRN Reason: Anxiety Stop: 04/24/19 08:44 Magnesium Citrate (Citrate) 148 ml PO BID PRN PRN Reason: constipation Stop: 04/22/19 20:59 Last Admin: 03/23/19 17:19 Dose: 148 ml Documented by: Magnesium Hydroxide (Milk Of Magnesia) 30 ml PO DAILY PRN PRN Reason: Heartburn Stop: 04/24/19 08:44 Magnesium Oxide (Mag-Ox) 400 mg PO DAILY MAG Stop: 04/24/19 08:59 Last Admin: 03/25/19 09:48 Dose: 400 mg Documented by: Miscellaneous (Remove Nicoderm Patch) 1 ea N/A HS MAG Stop: 04/24/19 21:59 Multivitamins (Multivitamin Tab) 1 tab PO DAILY MAG Stop: 04/24/19 08:59 Last Admin: 03/25/19 09:48 Dose: 1 tab Documented by: Nicotine (Nicoderm Cq) 14 mg TD QAM MAG Stop: 04/24/19 08:59 Last Admin: 03/25/19 09:49 Dose: Not Given Documented by: Olanzapine (Zyprexa) 10 mg IM HS PRN PRN Reason: Undecided Stop: 04/24/19 08:44 Olanzapine (Zyprexa Zydis Od) 30 mg PO HS MAG Stop: 04/24/19 21:59 Pyridoxine HCl (Vitamin B-6) 100 mg PO DAILY MAG Stop: 04/24/19 08:59 Last Admin: 03/25/19 09:48 Dose: 100 mg Documented by: Risperidone (Risperdal M) 1 mg PO BID PRN PRN Reason: psychosis Stop: 04/24/19 08:44 Sodium Chloride ([place] Nasal) 1 - 2 sprays NA PRN PRN PRN Reason: Nasal Dryness/Congestion Stop: 04/24/19 08:44 Mental Health & Subst Abuse Tx Therapist Name of Therapist: Denies Elevator Constructor Hydraulic Name of Elevator Constructor Hydraulic: Shruti Lopez Phone Number for Elevator Constructor Hydraulic: Case Management Appointment Comment: [phone], [place] [address] Post Discharge Appointments Primary Care Physician Name Of Family Doctor: Dr. Lopez Contact Information Discharge Discharge Address: [address] [place] [address] CPT Code CPT Code 14004 (1) Schizophrenia Schizophrenia type: paranoid schizophrenia Qualified Code(s): F20.0 - Paranoid schizophrenia (2) Hypertension Hypertension type: essential hypertension Qualified Code(s): I10 - Essential (primary) hypertension
[2019-03-25] MEDS: OLANZAPINE ZYDIS 10 MG ORALLY DIS. TAB PO SCH (21:42)
[2019-03-25] MEDS: cloNIDine HCL 0.1 MG TAB PO SCH (21:42)
[2019-03-26] MEDS: MAGNESIUM OXIDE 400 MG TAB PO SCH (08:53)
[2019-03-26] MEDS: MULTIVITAMIN TAB PO SCH (08:54)
[2019-03-26] MEDS: NICOTINE 14 MG/24 HR PATCH TD SCH (08:54)
[2019-03-26] MEDS: PYRIDOXINE HCL 50 MG TAB PO SCH (08:54)
[2019-03-26] MEDS: CYANOCOBALAMIN 500 MCG TABLET (VITAMIN B-12) PO SCH (08:54)
--- NOTE | 2019-03-26 09:47 | Psychiatric Progress Note ---
Date of Service March 26, 2019 Impression / Recommendations Impression 73-year-old male with schizophrenia who lives at the [facility] and was admitted involuntarily on 02/24/2019 with delusions, hallucinations, irritability and erratic behavior after rapid decompensation 1-2 weeks after he stopped taking his antipsychotic. He was found in a dumpster, floridly delusional, and was combative with [facility] staff. He refused resumption of olanzapine, but ultimately agreed to take aripiprazole. It initially appeared that he was responding favorably, although not completely, to the addition of aripiprazole. Because of the patient's long history of dangerous behaviors in the community associated with nonadherence with psychiatric medications, the patient's behavioral health unit treatment team and his outpatient providers recommended a depo antipsychotic medication, and he initially agreed to Abilify Maintena; however, refused it when staff attempted to administer the injection (03/13/2019), and subsequently became much more oppositional and hostile towards staff, refusing to speak with a psychiatrist or other [facility] staff since that time. He continues to be uncooperative with treatment, refusing all groups, refusing to talk with staff or clinicians, and refusing mouth checks after Zyprexa Zydis, which he states he does not need. He is refusing a long-acting injectable, and has refused to meet with his outpatient case monitor and alf staff. He has a clear history of dangerous behaviors during periods of nonadherence with medications in the community, and inpatient psychiatric hospitalization remains the least intensive, least restrictive level of care consistent with the patient's clinical and safety needs. He was referred to [facility] 03/23/2019. He refused to participate in a diversion meeting with his alf director and outpatient case monitor on 03/24/19. It was reported his [facility] bed will not be held if he continues to refuse treatment and meetings - he is making no progress toward improving on this. (1) Schizophrenia: 02/25 - Continue home medication regimen - as refusing offerings of his antipsychotic, will likely require olanzapine IM (or alternative agent) over objection, given clear evidence of paranoia and delusional thought process - previously stabilized on this medication - Pt agreeable to taking all other medications, with exception of antipsychotic as mentioned above - Admitted to a locked inpatient behavioral health unit, on q15 minute safety checks - Encourage medication initiation/adjustments as indicated - Encourage participation in group and recreational therapies - Gather collateral information from outpatient providers and alf staff - Suggest family meeting to involve outpatient supports in safety planning - Reschedule appropriate aftercare appointments 02/26 -Patient indicates willingness to sign a release for the [facility] alf, will get collateral from their staff. -File for 303 involuntary commitment to be held tomorrow. -Recommend medications over objection, with an IM Zyprexa backup for refusal of oral medication. Involve outpatient treatment team to discuss ways to improve stability and compliance; consider long-acting injectable antipsychotic. -Order fasting labs for monitoring on an atypical antipsychotic once patient is more cooperative. 02/27 -The patient was retrained at his involuntary commitment hearing (303) this morning. -He has continuously and consistently refused psychiatric medications to date. However, today, when I explained that that a option that might become necessary in his case is medication over objection, and an intramuscular form, the patient said that he understood and that he would try medications that I prescribe. His initial preference would be olanzapine, but because olanzapine is not available in a long acting depot form, we would first like to try aripiprazole. He indicates that he is taken aripiprazole in the past and has been able to tolerate it, although he does not believe that it has been particularly helpful. -A trial dose of aripiprazole 15 mg by mouth, as a one-time dose, has been ordered and he assessed for efficacy. 02/28 -Appears to be tolerating initiation of Abilify so far. Remains delusional, paranoid. May consider further titration tomorrow -Aricept discontinued at patient's request on 02/27/2019. The medication has not been demonstrated to be efficacious for cognitive impairment associated with long-standing schizophrenia however we should be vigilant for slowing of mentation following discontinuation. 03/01 Patient fixated and irrational regarding access to clothing item as above today. Hospital environment becoming incorporated and delusions. Consider possibility that the aripiprazole is contributing to activation. We will increase to 20 mg tomorrow and also start Risperdal 1 mg p.o. twice daily as as needed. 03/02 - Continue with aripiprazole at 20mg daily, consider need for further titration - if tolerating and effective, eventual plan will be for conversion to Abilify Maintena - Pt has not yet utilized risperidone 03/03 - Increase aripiprazole to 25mg (equivalent to 30mg pill) and change to liquid formulation to decrease risk of cheeking/nonadherence, as patient does not believe he needs medication and had been noncompliant prior to hospitalization. - Fasting glucose and lipid profile ordered for tomorrow for monitoring on an atypical antipsychotic. - Private room due to psychosis, agitation, and inappropriate disrobing/sexual behavior. - Meeting with [facility] and [facility] staff when patient able to tolerate. 03/04 - Continue aripiprazole 25mg liquid (30mg pill equivalent) and continue to observe for improvement in thought process/content - consider conversion to Maintena if effective, versus trial of another agent if improvement remains limited - Fasting labs reviewed - all values WNL - Continue medically necessary private room - Request meeting with [facility] staff, in order to obtain details about patient's proximity to baseline 03/05 -Patient refusing liquid aripiprazole, but agrees to take the pill: Ordered 30 mg daily. -Schedule meeting with his case monitor, [facility] and psych rehab staff. Consider involuntary outpatient commitment at the time of discharge. 03/06 -The patient has improved in that he is more reality based at this point. He continues to harbor fixed, systematized delusions, but is generally able to focus on reality based topics. -Although the patient tells me that he does not feel that aripiprazole has been effective, he is able to accept my opinion in the opinion of the staff that he has improved in response to aripiprazole. -The patient's main objection to aripiprazole oral solution is that he does not like the way it tastes, and within this context, he tells us that he is willing to accept Abilify Maintenaand requests that it be injected into his buttock. Abilify Maintena 300 mg IM ordered, and oral Abilify discontinued. We will resume oral Abilify if the patient subsequently changes his mind and refuses the injection. 03/07 resuming abilfiy oral given his refusal of FARAH form of abilify 03/08 is taking abilify po form but refusing abilify maintena form. advise close monitoring for potential of checking given pt's tendency to not want to take medications. 03/09 -The patient is flatly refusing to take aripiprazole in the form of Abilify Maintena. He is also been hesitant to take oral Abilify, but has been doing so. -The patient's lack of cooperation is thought possibly to be related to an un-expressed desire to not be discharged back to the community. He told me today that he left his meeting with his community providers after a few seconds because "just the side of them made me extremely anxious. My pulse elevated to 140." Later, he told me that he was still anxious about it and his pulse was "still around 130." The patient allowed me to take his pulse, and it was approximately 76. At that point he said, "did I say pulse? I meant systolic blood pressure." And when I pointed out that his systolic blood pressure of 130 is not considered to be a particular concern, he said "I mean diastolic." -Our hope had been that the patient would agree to accept a Depo form of medication. He was refusing Haldol Decanoate because of various side effects. Risperidone constant was ruled out as a first-line Depo medication because of the frequency of administration (the patient tends to get into power struggles over medications) and because he says that he is sensitive to "big needles." Invega would be an option, but currently the patient is being so uncooperative that our concern would be that he would cheek the oral tablets that we would have to give him first. Accordingly, the new strategy will be to discontinue A bilify, and resume olanzapine with olanzapine IM over objection if necessary. We will begin the olanzapine Zydis 20 mg at bedtime 03/10 -The patient took the prescribed dose of olanzapine Zydis 20 mg at bedtime last night. Today, he tells me that it "did not help at all." However, staff report that he has been somewhat more agreeable, more pleasant, and less paranoid today. -As he has with other providers, today he told me that I should have given him olanzapine 5 mg "to start", and I explained that he was already on olanzapine 20 mg when he came into the hospital and we know that he is able to tolerate that dose. He tells me that he did, in fact tolerate the dose and is not aware of any side effects, but, somewhat illogically, insisted that the dose was "too high for a starting dose." 03/11 - Continue current medication regimen at this time - olanzapine 20mg daily - Encourage participation in the milieu and in group programming as tolerated 03/12 -Continue current medication regimen. The patient's condition has not yet improved. -The patient does participate in select groups, but often tends to be disruptive. 03/13 -Today, the patient seems to be somewhat more cooperative and less frankly delusional. It was possible to engage in a mostly reality based conversation for 5 or 10 minutes at a time. Also, although he was unhappy with me when I refused to provide him with a dose of Valium for anxiety, he was able to remain pleasant and calm at this time, did not storm from the room." 03/14 and 03/15 -no change in medication will work on therapeutic alliance given patient is not participating 03/16 -304 involuntary commitment granted. -Patient remains completely uncooperative with treatment, refused his Zyprexa Zydis last evening, but then ultimately took it before he received the injection. I have a high suspicion for cheeking of antipsychotic medication, and we will continue to be vigilant with mouth checks, and work towards a long- acting injectable. 03/17 -Patient has been on Zyprexa 20 mg at bedtime for 1 week, with limited response. He is refusing to discuss other medication options. Per records, he has been prescribed up to 30 mg olanzapine in the past, so will increase his dose to this previously tolerated dose, as it is 1 of the few medications he has been willing to take. Continue IM backup for refusal, and Zyprexa Zydis formulation to decrease risk of cheeking. He is not compliant with mouth checks, but have asked staff to try to observe him for 10 minutes after taking the Zydis to ensure he is not spitting it out before it dissolves. 03/18 -Continue Zyprexa Zydis 30 mg at bedtime with IM backup. Consider switch to a different medication (?oral paliperidone with IM backup) if irritability and agitation continues. He has tried virtually every atypical antipsychotic and reports none of them were effective (although some trials were short due to nonadherence) and has a history of dystonia on haloperidol. Clozapine would be a reasonable choice, but he has been unwilling to even discuss medication options. -Consider some component of cognitive decline which could be contributing to his worsening presentation and will need to be monitored and worked up further once he is more psychiatrically stable. -Refer to [facility] in the event that he does not improve and long-term inpatient treatment is needed. 03/19 - Proceed with [facility] referral. 03/20 - Continue current medication regimen; patient refused EKG and CXR yesterday - refused again today - Continue attempts to gather information to make a referral to [facility] 03/23 - Proceed with [facility] referral - patient has refused EKG and CXR for multiple attempts. We will send most recent tests available - Continue current medication regimen at this time 03/24 -Attempted to hold diversion meeting with his outpatient M, alf director, and the [facility] MH/ID; patient refused to attend or participate in the meeting. 03/25 - 03/26 - Continue treatment plan as above - no change in patient's condition and he remains unwilling to participate meaningfully in treatment - Continue with [facility] referral (2) Substance abuse: 02/25 - Pt has reported history of substance abuse, and recommendation has consistently been for avoidance of substances with significant abuse potential. - PDMP queried - most recent prescriptions below - lorazepam 0.5mg #60 tabs for 30 day supply - Dr. Alves - filled 02/12/2019 - alprazolam 0.5mg #90 tabs for 30 day supply - Dr. Lopez - filled 01/16/2019 - temazepam 30mg #30 caps for 30 day supply - Dr. Lopez - filled 01/16/2019 - Will continue lorazepam 0.5mg BID prn on admission, as only medication that is seemingly active - toxicology screen is negative for benzodiazepines, which questions if he has been taking the medication appropriately - Ideally will taper and discontinue the lorazepam, as recommendation remains that substances with abuse potential be avoided 02/26 -The patient's outpatient providers, during a meeting this morning, report that the patient tends to successfully convince physicians to prescribe benzodiazepines for him and that, in the past, he has abused him to the degree that he is practically obtunded. 02/27 -A repeat check of the PDMP reveals that the patient is consistently being prescribed lorazepam 0.5 mg twice daily (number 60/month) by a Dr. Brent Alves. He is also being prescribed alprazolam 0.[address] mg [address] Jeff Lopez, with the most recent previous prescription of alprazolam bein g on 01/16/[address] Lopez also prescribed temazepam 30 mg capsules #30 on 01/16/2019. According to his residential providers, no temazepam capsules were found among the patient's belongings. His most recent prescription for lorazepam 0.5 mg tablets was filled on 02/12/2019. 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 In the past, he reportedly has used clonazepam and temazepam. -I advised the patient that because of his history of misuse of benzodiazepines we would not be prescribing benzodiazepines during his hospital stay. An as needed order for lorazepam has not been used during hospital stay, and I discontinued the order today. 03/02 - Will need to coordinate care with his PCP and outpatient psychiatrist prior to discharge regarding the above. 03/04 - Charge nurse spoke with the above offices regarding concern for continued benzodiazepine prescriptions - Records will be faxed to their offices on discharge, as all benzodiazepines were discontinued during this hospitalization 03/06 -The patient did not request benzodiazepines and did not complain of anxiety today. I suggested to him that perhaps Abilify is also helping with anxiety in his case, and he responded by saying "perhaps." 03/09 -Today, the patient is insisting that what he needs is "benzodiazepines," and explains that the reason he "needs" benzodiazepines is that he has "benzodiazepine receptors," and that he is the only medications that work. He is unable to process warnings about the risks of benzodiazepines in the elderly, including increased risk of falls and mortality. Clearly, the patient is seeking benzodiazepines and has no insight into the associated risks. He also insists that he has never had trouble with benzodiazepines in the past, although there is well-documented of this. 03/10 -Today, the patient repeated his insistence that he needs benzodiazepines and that benzodiazepines are the only medications that work because he has "benzodiazepine receptors." After being told that everyone has central nervous system receptors to which benzodiazepines may attach, he replied, "That may be, but some of people need to have benzodiazepines forearm benzodiazepine receptors. 03/12 -Continues to request Benzodiazepines. 03/13 -Requests Valium for his "benzodiazepines." (3) Hypertension: 02/25 - Continue home dose of clonidine 0.1mg qHS 03/01 Watch mildly elevated blood pressures as patient has been refusing clonidine 03/03 - BP normal past two days, and low today 03/10 -The patient's blood pressure today was 136/73. His pulse was 71 03/14 - elevated BP it is not urgent but will need monitored. 03/15 - BP WNL 03/26 - BP continues to be WNL Inventory Assets Strengths: -Intelligence. Support of community providers. Well educated. Needs: Resume symptom-stabilizing medication regimen, coordinate care with alf Risk Factors Assessment Male: Yes : Yes Do You Have Access To A Gun?: No Health Problems: Yes Mental Health Diagnoses: Yes Substance Use Disorders: Yes Protective Factors Assessment Roman Catholic Beliefs: No : No Responsible for Young Children: No Employed: No Stable Relationships: No Supportive Family: No Good Rapport with Provider: No Interval History Identifying Information SCOTT ROBERTO is a 73-year-old M who currently lives at a [facility] in [place]. Pt has a history of schizophrenia and is known to our unit from several previous admissions, most recently in 09/2016. Pt and was admitted on 02/24/19 16:40 on a 302 involuntary commitment for exacerbation of schizophrenia and heightened paranoia resulting in belief he needed to hide in a dumpster to seek refuge from impending bombings. Pt was found by [facility] staff and brought to the ED by police. He is on a 304 involuntary commitment as of 03/16/19. Chief Complaint "Oh, you're really going to start this again?" Review of Systems Notes Patient is unwilling to participate in productive conversation. Unable to gather accurate ROS. Sleep Information Total Hours of Sleep: 7.25 Sleep Comments: out for cereal at 0100. Meal Information Percent Meal Consumed - Breakfast: 100 Percent Meal Consumed - Lunch: 100 Percent Meal Consumed - Dinner: 100 Nutrition Comment: per meal record Subjective Subjective Patient was seen & assessed and interval progress reviewed with Nursing and social work. Staff report the patient has shown no changes over the past few days. He continues to be uncooperative in treatment, refuses to engage in conversation with multiple staff, and is very rarely attending group programming. He does continue to reportedly take medications. Patient was seen today to assess progress since admission. Pt was observed to be laying on his bed, staring at the wall when this provider entered. This provider began a conversation, asking the patient if he was planning to attend community meeting and check in with the group. Pt states, "Oh, you're really going to start this again?" Pt was informed that this provider just wanted to speak with him to get a sense of how things are going for him. Pt states, "not one word." This provider reminded the patient that we are wanting to help him to get home, but cannot do this unless he is agreeable to speaking with us. Pt again states, "not one word." Physical Exam Psychiatric Orientation: alert; + uncooperative Apperance: appropriately dressed, appropriately groomed and appeared stated age Eye Contact: + poor eye contact (avoids eye contact with this provider) Motor Behavior: no abnormal motor movements (observed while laying in bed) Speech: normal rate/rhythm/volume of speech (limited willingness to speak with this provider) Affect: + irritable affect unable to adequately assess, as patient is refusing interaction unable to adequately assess, as patient is refusing interaction Insight: + severely impaired insight Judgement: + severely impaired judgement Vital Signs (Past 24 Hours) Last Vital Signs Temp 36.7 C 03/26/19 06:00 Pulse 73 03/26/19 06:33 Resp 17 03/26/19 06:33 BP 114/71 03/26/19 06:33 Pulse Ox 96 02/24/19 08:10 Results & Data Current Inpatient Medications Current Inpatient Medications: Current Inpatient Medications Acetaminophen (Tylenol) 650 mg PO Q4H PRN PRN Reason: Headache or Minor Fever Stop: 04/24/19 08:39 Al Hydrox/Mg Hydrox/Simethicone (Maalox) 30 ml PO Q4H PRN PRN Reason: GI Upset Stop: 04/24/19 08:39 Benztropine Mesylate (Cogentin) 0.5 mg PO BID PRN PRN Reason: dystonia Stop: 04/24/19 08:39 Bismuth Subsalicylate (Kaopectate) 15 ml PO PRN PRN PRN Reason: Loose Stool Stop: 04/24/19 08:39 Clonidine HCl (Catapres) 0.1 mg PO HS MAG Stop: 04/24/19 21:59 Last Admin: 03/25/19 21:42 Dose: 0.1 mg Documented by: Cyanocobalamin (Vitamin B-12) 500 mcg PO DAILY MAG Stop: 04/24/19 08:59 Last Admin: 03/26/19 08:54 Dose: 500 mcg Documented by: Hydroxyzine HCl (Vistaril) 50 mg PO HSZ PRN PRN Reason: Insomnia Stop: 04/24/19 08:44 Hydroxyzine HCl (Vistaril) 25 mg PO Q4H PRN PRN Reason: Anxiety Stop: 04/24/19 08:44 Magnesium Citrate (Citrate) 148 ml PO BID PRN PRN Reason: constipation Stop: 04/22/19 20:59 Last Admin: 03/23/19 17:19 Dose: 148 ml Documented by: Magnesium Hydroxide (Milk Of Magnesia) 30 ml PO DAILY PRN PRN Reason: Heartburn Stop: 04/24/19 08:44 Magnesium Oxide (Mag-Ox) 400 mg PO DAILY MAG Stop: 04/24/19 08:59 Last Admin: 03/26/19 08:53 Dose: 400 mg Documented by: Miscellaneous (Remove Nicoderm Patch) 1 ea N/A HS MAG Stop: 04/24/19 21:59 Last Admin: 03/25/19 21:46 Dose: Not Given Documented by: Multivitamins (Multivitamin Tab) 1 tab PO DAILY MAG Stop: 04/24/19 08:59 Last Admin: 03/26/19 08:54 Dose: 1 tab Documented by: Nicotine (Nicoderm Cq) 14 mg TD QAM MAG Stop: 04/24/19 08:59 Last Admin: 03/26/19 08:54 Dose: Not Given Documented by: Olanzapine (Zyprexa) 10 mg IM HS PRN PRN Reason: Undecided Stop: 04/24/19 08:44 Olanzapine (Zyprexa Zydis Od) 30 mg PO HS MAG Stop: 04/24/19 21:59 Last Admin: 03/25/19 21:42 Dose: 30 mg Documented by: Pyridoxine HCl (Vitamin B-6) 100 mg PO DAILY MAG Stop: 04/24/19 08:59 Last Admin: 03/26/19 08:54 Dose: 100 mg Documented by: Risperidone (Risperdal M) 1 mg PO BID PRN PRN Reason: psychosis Stop: 04/24/19 08:44 Sodium Chloride ([place] Nasal) 1 - 2 sprays NA PRN PRN PRN Reason: Nasal Dryness/Congestion Stop: 04/24/19 08:44 Mental Health & Subst Abuse Tx Therapist Name of Therapist: [facility] [employer] [employer] Name of [employer]: Shruti Lopez Phone Number for [employer]: Case Management Appointment Comment: [address], [place] [address] Post Discharge Appointments Primary Care Physician Name Of Family Doctor: Dr. Lopez Contact Information Discharge Discharge Address: [address] [place] [id number] CPT Code CPT Code 96854 (1) Schizophrenia Schizophrenia type: paranoid schizophrenia Qualified Code(s): F20.0 - Paranoid schizophrenia (2) Hypertension Hypertension type: essential hypertension Qualified Code(s): I10 - Essential (primary) hypertension
[2019-03-26] MEDS: cloNIDine HCL 0.1 MG TAB PO SCH (22:03)
[2019-03-26] MEDS: OLANZAPINE ZYDIS 10 MG ORALLY DIS. TAB PO SCH (22:04)
[2019-03-27] MEDS: MULTIVITAMIN TAB PO SCH (08:36)
[2019-03-27] MEDS: NICOTINE 14 MG/24 HR PATCH TD SCH (08:36)
[2019-03-27] MEDS: MAGNESIUM OXIDE 400 MG TAB PO SCH (08:36)
[2019-03-27] MEDS: PYRIDOXINE HCL 50 MG TAB PO SCH (08:37)
[2019-03-27] MEDS: CYANOCOBALAMIN 500 MCG TABLET (VITAMIN B-12) PO SCH (08:37)
--- NOTE | 2019-03-27 15:22 | Psychiatric Progress Note ---
Date of Service March 27, 2019 Impression / Recommendations Impression 73-year-old male with schizophrenia who lives at the [facility] and was admitted involuntarily on 02/24/2019 with delusions, hallucinations, irritability and erratic behavior after rapid decompensation 1-2 weeks after he stopped taking his antipsychotic. He was found in a dumpster, floridly delusional, and was combative with [facility] staff. He refused resumption of olanzapine, but ultimately agreed to take aripiprazole. It initially appeared that he was responding favorably, although not completely, to the addition of aripiprazole. Because of the patient's long history of dangerous behaviors in the community associated with nonadherence with psychiatric medications, the patient's behavioral health unit treatment team and his outpatient providers recommended a depo antipsychotic medication, and he initially agreed to Abilify Maintena; however, refused it when staff attempted to administer the injection (03/13/2019), and subsequently became much more oppositional and hostile towards staff, refusing to speak with a psychiatrist or other [facility] staff since that time. He continues to be uncooperative with treatment, refusing all groups, refusing to talk with staff or clinicians, and refusing mouth checks after Zyprexa Zydis, which he states he does not need. He is refusing a long-acting injectable, and has refused to meet with his outpatient pillowcase cleaner and [facility]ci staff. He has a clear history of dangerous behaviors during periods of nonadherence with medications in the community, and inpatient psychiatric hospitalization remains the least intensive, least restrictive level of care consistent with the patient's clinical and safety needs. He was referred to [facility] 03/23/2019. He refused to participate in a diversion meeting with his [facility]ci director and outpatient pillowcase cleaner on 03/24/19. It was reported his [facility] bed will not be held if he continues to refuse treatment and meetings - he is making no progress toward improving on this. Today, the patient, for the first time, refused to meet with me. He was offered several opportunities throughout the course of the day and consistently declined. There has been a question regarding the patient's cognitive functions, and prior to admission he had been taking Aricept. When he does cooperate with this, I have not seen evidence of any substantial cognitive impairment. He may have mild cognitive impairment, but does not fully cooperate with formal cognitive assessment. He easily recalls the names of his providers, the names of the medications he is taking, the names of the various infectious agents that he believes are causing some of his psychiatric symptoms, the names of certain chemicals that he believes will rid him of the reference to infections, and is able to discuss current events such as recent news items. His assertion that he wants to return to his apartment in the community seems belied by his steadfast refusal to cooperate with those interventions I would make it possible for him to return, and there is some suspicion that although the patient remains floridly psychotic he may also be intentionally sabotaging discharge. (1) Schizophrenia: 02/25 - Continue home medication regimen - as refusing offerings of his antipsychotic, will likely require olanzapine IM (or alternative agent) over objection, given clear evidence of paranoia and delusional thought process - previously stabilized on this medication - Pt agreeable to taking all other medications, with exception of antipsychotic as mentioned above - Admitted to a locked inpatient behavioral health unit, on q15 minute safety checks - Encourage medication initiation/adjustments as indicated - Encourage participation in group and recreational therapies - Gather collateral information from outpatient providers and fci staff - Suggest family meeting to involve outpatient supports in safety planning - Reschedule appropriate aftercare appointments 02/26 -Patient indicates willingness to sign a release for the [facility], will get collateral from their staff. -File for 303 involuntary commitment to be held tomorrow. -Recommend medications over objection, with an IM Zyprexa backup for refusal of oral medication. Involve outpatient treatment team to discuss ways to improve stability and compliance; consider long-acting injectable antipsychotic. -Order fasting labs for monitoring on an atypical antipsychotic once patient is more cooperative. 02/27 -The patient was retrained at his involuntary commitment hearing (303) this morning. -He has continuously and consistently refused psychiatric medications to date. However, today, when I explained that that a option that might become necessary in his case is medication over objection, and an intramuscular form, the patient said that he understood and that he would try medications that I prescribe. His initial preference would be olanzapine, but because olanzapine is not available in a long acting depot form, we would first like to try aripiprazole. He indicates that he is taken aripiprazole in the past and has been able to tolerate it, although he does not believe that it has been particularly helpful. -A trial dose of aripiprazole 15 mg by mouth, as a one-time dose, has been ordered and he assessed for efficacy. 02/28 -Appears to be tolerating initiation of Abilify so far. Remains delusional, paranoid. May consider further titration tomorrow -Aricept discontinued at patient's request on 02/27/2019. The medication has not been demonstrated to be efficacious for cognitive impairment associated with long-standing schizophrenia however we should be vigilant for slowing of mentation following discontinuation. 03/01 Patient fixated and irrational regarding access to clothing item as above today. Hospital environment becoming incorporated and delusions. Consider possibility that the aripiprazole is contributing to activation. We will increase to 20 mg tomorrow and also start Risperdal 1 mg p.o. twice daily as as needed. 03/02 - Continue with aripiprazole at 20mg daily, consider need for further titration - if tolerating and effective, eventual plan will be for conversion to Abilify Maintena - Pt has not yet utilized risperidone 03/03 - Increase aripiprazole to 25mg (equivalent to 30mg pill) and change to liquid formulation to decrease risk of cheeking/nonadherence, as patient does not believe he needs medication and had been noncompliant prior to hospitalization. - Fasting glucose and lipid profile ordered for tomorrow for monitoring on an atypical antipsychotic. - Private room due to psychosis, agitation, and inappropriate disrobing/sexual behavior. - Meeting with [facility] and [facility] staff when patient able to tolerate. 03/04 - Continue aripiprazole 25mg liquid (30mg pill equivalent) and continue to observe for improvement in thought process/content - consider conversion to Maintena if effective, versus trial of another agent if improvement remains limited - Fasting labs reviewed - all values WNL - Continue medically necessary private room - Request meeting with [facility] staff, in order to obtain details about patient's proximity to baseline 03/05 -Patient refusing liquid aripiprazole, but agrees to take the pill: Ordered 30 mg daily. -Schedule meeting with his pillowcase cleaner, [facility] and psych rehab staff. Consider involuntary outpatient commitment at the time of discharge. 03/06 -The patient has improved in that he is more reality based at this point. He continues to harbor fixed, systematized delusions, but is generally able to fo cus on reality based topics. -Although the patient tells me that he does not feel that aripiprazole has been effective, he is able to accept my opinion in the opinion of the staff that he has improved in response to aripiprazole. -The patient's main objection to aripiprazole oral solution is that he does not like the way it tastes, and within this context, he tells us that he is willing to accept Abilify Maintenaand requests that it be injected into his buttock. Abilify Maintena 300 mg IM ordered, and oral Abilify discontinued. We will resume oral Abilify if the patient subsequently changes his mind and refuses the injection. 03/07 resuming abilfiy oral given his refusal of FARAH form of abilify 03/08 is taking abilify po form but refusing abilify maintena form. advise close monitoring for potential of checking given pt's tendency to not want to take medications. 03/09 -The patient is flatly refusing to take aripiprazole in the form of Abilify Maintena. He is also been hesitant to take oral Abilify, but has been doing so. -The patient's lack of cooperation is thought possibly to be related to an un-expressed desire to not be discharged back to the community. He told me today that he left his meeting with his community providers after a few seconds because "just the side of them made me extremely anxious. My pulse elevated to 140." Later, he told me that he was still anxious about it and his pulse was "still around 130." The patient allowed me to take his pulse, and it was approximately 76. At that point he said, "did I say pulse? I meant systolic blood pressure." And when I pointed out that his systolic blood pressure of 130 is not considered to be a particular concern, he said "I mean diastolic." -Our hope had been that the patient would agree to accept a Depo form of medication. He was refusing Haldol Decanoate because of various side effects. Risperidone constant was ruled out as a first-line Depo medication because of the frequency of administration (the patient tends to get into power struggles over medications) and because he says that he is sensitive to "big needles." Invega would be an option, but currently the patient is being so uncooperative that our concern would be that he would cheek the oral tablets that we would have to give him first. Accordingly, the new strategy will be to discontinue Abilify, and resume olanzapine with olanzapine IM over objection if necessary. We will begin the olanzapine Zydis 20 mg at bedtime 03/10 -The patient took the prescribed dose of olanzapine Zydis 20 mg at bedtime last night. Today, he tells me that it "did not help at all." However, staff report that he has been somewhat more agreeable, more pleasant, and less paranoid today. -As he has with other providers, today he told me that I should have given him olanzapine 5 mg "to start", and I explained that he was already on olanzapine 20 mg when he came into the hospital and we know that he is able to tolerate that dose. He tells me that he did, in fact tolerate the dose and is not aware of any side effects, but, somewhat illogically, insisted that the dose was "too high for a starting dose." 03/11 - Continue current medication regimen at this time - olanzapine 20mg daily - Encourage participation in the milieu and in group programming as tolerated 03/12 -Continue current medication regimen. The patient's condition has not yet improved. -The patient does participate in select groups, but often tends to be disruptive. 03/13 -Today, the patient seems to be somewhat more cooperative and less frankly delusional. It was possible to engage in a mostly reality based conversation for 5 or 10 minutes at a time. Also, although he was unhappy with me when I refused to provide him with a dose of Valium for anxiety, he was able to remain pleasant and calm at this time, did not storm from the room." 03/14 and 03/15 -no change in medication will work on therapeutic alliance given patient is not participating 03/16 -304 involuntary commitment granted. -Patient remains completely uncooperative with treatment, refused his Zyprexa Zydis last evening, but then ultimately took it before he received the injecti on. I have a high suspicion for cheeking of antipsychotic medication, and we will continue to be vigilant with mouth checks, and work towards a long-acting injectable. 03/17 -Patient has been on Zyprexa 20 mg at bedtime for 1 week, with limited response. He is refusing to discuss other medication options. Per records, he has been prescribed up to 30 mg olanzapine in the past, so will increase his dose to this previously tolerated dose, as it is 1 of the few medications he has been willing to take. Continue IM backup for refusal, and Zyprexa Zydis formulation to decrease risk of cheeking. He is not compliant with mouth checks, but have asked staff to try to observe him for 10 minutes after taking the Zydis to ensure he is not spitting it out before it dissolves. 03/18 -Continue Zyprexa Zydis 30 mg at bedtime with IM backup. Consider switch to a different medication (?oral paliperidone with IM backup) if irritability and agitation continues. He has tried virtually every atypical antipsychotic and reports none of them were effective (although some trials were short due to nonadherence) and has a history of dystonia on haloperidol. Clozapine would be a reasonable choice, but he has been unwilling to even discuss medication options. -Consider some component of cognitive decline which could be contributing to his worsening presentation and will need to be monitored and worked up further once he is more psychiatrically stable. -Refer to [facility] in the event that he does not improve and long-term inpatient treatment is needed. 03/19 - Proceed with [facility] referral. 03/20 - Continue current medication regimen; patient refused EKG and CXR yesterday - refused again today - Continue attempts to gather information to make a referral to [facility] 03/23 - Proceed with [facility] referral - patient has refused EKG and CXR for multiple attempts. We will send most recent tests available - Continue current medication regimen at this time 03/24 -Attempted to hold diversion meeting with his outpatient [facility], [facility]ci director, and the [facility]; patient refused to attend or participate in the meeting. 03/25 - 03/26 - Continue treatment plan as above - no change in patient's condition and he remains unwilling to participate meaningfully in treatment - Continue with [place] referral 03/27 -The patient has been informed that the plan at this point is to transfer him to [facility] for long-term inpatient psychiatric treatment, given his refusal to adhere with treatment and his associated behaviors in the community when not adherent with psychiatric treatment. -The patient continues to refuse mouth checks after given dosages of Zyprexa Zydis, and there is some question regarding whether he is actually ingesting this medication. He also would not cooperate with laboratory testing. Present on Admission?: Yes (2) Substance abuse: 02/25 - Pt has reported history of substance abuse, and recommendation has consistently been for avoidance of substances with significant abuse potential. - PDMP queried - most recent prescriptions below - lorazepam 0.5mg #60 tabs for 30 day supply - Dr. Alves - filled 02/12/2019 - alprazolam 0.5mg #90 tabs for 30 day supply - Dr. Lopez - filled 01/16/2019 - temazepam 30mg #30 caps for 30 day supply - Dr. Lopez - filled 01/16/2019 - Will continue lorazepam 0.5mg BID prn on admission, as only medication that is seemingly active - toxicology screen is negative for benzodiazepines, which questions if he has been taking the medication appropriately - Ideally will taper and discontinue the lorazepam, as recommendation remains that substances with abuse potential be avoided 02/26 -The patient's outpatient providers, during a meeting this morning, report that the patient tends to successfully convince physicians to prescribe benzodiazepines for him and that, in the past, he has abused him to the degree that he is practically obtunded. 02/27 -A repeat check of the PDMP reveals that the patient is consistently being prescribed lorazepam 0.5 mg twice daily (number 60/month) by a Dr. Rock Alves. He is also being prescribed alprazolam 0.[address] mg [address] Jeff Lopez, with the most recent previous prescription of alprazolam being on 01/16/[address] Lopez also prescribed temazepam 30 mg capsules #30 on 01/16/2019. According to his residential providers, no temazepam capsules were found among the patient's belongings. His most recent prescription for lorazepam 0.5 mg tablets was filled on 02/12/2019. 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 In the past, he reportedly has used clonazepam and temazepam. -I advised the patient that because of his history of misuse of benzodiazepines we would not be prescribing benzodiazepines during his hospital stay. An as needed order for lorazepam has not been used during hospital stay, and I discontinued the order today. 03/02 - Will need to coordinate care with his PCP and outpatient psychiatrist prior to discharge regarding the above. 03/04 - Charge nurse spoke with the above offices regarding concern for continued benzodiazepine prescriptions - Records will be faxed to their offices on discharge, as all benzodiazepines were discontinued during this hospitalization 03/06 -The patient did not request benzodiazepines and did not complain of anxiety today. I suggested to him that perhaps Abilify is also helping with anxiety in his case, and he responded by saying "perhaps." 03/09 -Today, the patient is insisting that what he needs is "benzodiazepines," and explains that the reason he "needs" benzodiazepines is that he has "benzodiazepine receptors," and that he is the only medications that work. He is unable to process warnings about the risks of benzodiazepines in the elderly, including increased risk of falls and mortality. Clearly, the patient is seeking benzodiazepines and has no insight into the associated risks. He also insists that he has never had trouble with benzodiazepines in the past, although there is well-documented of this. 03/10 -Today, the patient repeated his insistence that he needs benzodiazepines and that benzodiazepines are the only medications that work because he has "benzodiazepine receptors." After being told that everyone has central nervous system receptors to which benzodiazepines may attach, he replied, "That may be, but some of people need to have benzodiazepines forearm benzodiazepine receptors. 03/12 -Continues to request Benzodiazepines. 03/13 -Requests Valium for his "benzodiazepines receptors." 03/27 -Refuses to cooperate with assessment today, but has recently told staff that he needs "either Valium or Ativan." -The patient apparently has no working insight into his history of abuse of prescription medications (benzodiazepines). Present on Admission?: Yes (3) Hypertension: 02/25 - Continue home dose of clonidine 0.1mg qHS 03/01 Watch mildly elevated blood pressures as patient has been refusing clonidine 03/03 - BP normal past two days, and low today 03/10 -The patient's blood pressure today was 136/73. His pulse was 71 03/14 - elevated BP it is not urgent but will need monitored. 03/15 - BP WNL 03/26 - BP continues to be WNL Present on Admission?: Yes Inventory Assets Strengths: -Intelligence. Support of community providers. Well educated. Needs: Resume symptom-stabilizing medication regimen, coordinate care with fci Risk Factors Assessment Male: Yes : Yes Do You Have Access To A Gun?: No Health Problems: Yes Mental Health Diagnoses: Yes Substance Use Disorders: Yes Protective Factors Assessment Jewish Beliefs: No : No Responsible for Young Children: No Employed: No Stable Relationships: No Supportive Family: No Good Rapport with Provider: No Interval History Identifying Information SCOTT ROBERTO is a 73-year-old M who currently lives at a [facility] in [place]. Pt has a history of schizophrenia and is known to our unit from several previous admissions, most recently in 09/2016. Pt and was admitted on 02/24/19 16:40 on a 302 involuntary commitment for exacerbation of schizophrenia and heightened paranoia resulting in belief he needed to hide in a dumpster to seek refuge from impending bombings. Pt was found by [facility] staff and brought to the ED by police. He is on a 304 involuntary commitment as of 03/16/19. Chief Complaint "I don't want to talk". Review of Systems Sleep Information Total Hours of Sleep: 6.25 Sleep Comments: awake and out to the kitchen for a snack of cereals with milk at 0240 Meal Information Percent Meal Consumed - Breakfast: 100 Percent Meal Consumed - Lunch: 100 Percent Meal Consumed - Dinner: 100 Nutrition Comment: per meal record Subjective Subjective Patient was seen & assessed and interval progress reviewed with treatment team. I attempted several times throughout the course of the morning and afternoon to meet with the patient, but he consistently declined and, each time told me that he does not wish to speak with me or with anyone else. A review of the record indicates that the patient has remained largely resistant to treatment and has become progressively more nonadherent with treatment recommendations. He continues to make statements that are consistent with paranoid delusions, such as his insistence that he is at risk for being killed by assassins unknown. The patient also tells staff that he will not meet with any of the providers, including his outpatient providers and pillowcase cleaner, but will, instead, meet only with their attorneys. He continues to have no insight at all into his illness, and is frequently reluctant to take his prescribed psychiatric medication (although he does.) He has been isolating himself in the milieu, prefers to eat his lunch apart from the other patients, and refuses to attend any therapeutic activities or therapeutic groups. He makes contradictory statements such as an assertion that he is eager to return home to his assisted living apartment, but then steadfastly declines to meet with his outpatient providers and otherwise refuses to cooperate Physical Exam Psychiatric Declines to cooperate Apperance: appropriately groomed Eye Contact: + poor eye contact Motor Behavior: steady gait and station and no abnormal motor movements The patient's speech is soft and generally nonspontaneous. He says little more than I do not want to talk" and "because I don't" and "I will only talk to attorneys." Affect: + blunted affect and + angry affect Declines to answer questions regarding his mood Unable to assess Reports from staff indicate that the patient remains quite paranoid and floridly psychotic. Declines to answer questions regarding suicide, but has made no indication that he is considering intentional self-harm. The patient will not respond to questions regarding perceptual disturbances, but at times does continue to appear to be responding to internal stimuli. The patient does not cooperate with cognitive testing. Estimated Intelligence: + above average estimated intelligence Insight: + severely impaired insight Judgement: + severely impaired judgement Vital Signs (Past 24 Hours) Last Vital Signs Temp 36.4 C L 03/27/19 06:00 Pulse 70 03/27/19 06:40 Resp 15 03/27/19 06:40 BP 113/68 03/27/19 06:40 Pulse Ox 96 02/24/19 08:10 Results & Data Current Inpatient Medications Current Inpatient Medications: Current Inpatient Medications Acetaminophen (Tylenol) 650 mg PO Q4H PRN PRN Reason: Headache or Minor Fever Stop: 04/24/19 08:39 Al Hydrox/Mg Hydrox/Simethicone (Maalox) 30 ml PO Q4H PRN PRN Reason: GI Upset Stop: 04/24/19 08:39 Benztropine Mesylate (Cogentin) 0.5 mg PO BID PRN PRN Reason: dystonia Stop: 04/24/19 08:39 Bismuth Subsalicylate (Kaopectate) 15 ml PO PRN PRN PRN Reason: Loose Stool Stop: 04/24/19 08:39 Clonidine HCl (Catapres) 0.1 mg PO HS MAG Stop: 04/24/19 21:59 Last Admin: 03/26/19 22:03 Dose: 0.1 mg Documented by: Cyanocobalamin (Vitamin B-12) 500 mcg PO DAILY MAG Stop: 04/24/19 08:59 Last Admin: 03/27/19 08:37 Dose: 500 mcg Documented by: Hydroxyzine HCl (Vistaril) 50 mg PO HSZ PRN PRN Reason: Insomnia Stop: 04/24/19 08:44 Hydroxyzine HCl (Vistaril) 25 mg PO Q4H PRN PRN Reason: Anxiety Stop: 04/24/19 08:44 Magnesium Citrate (Citrate) 148 ml PO BID PRN PRN Reason: constipation Stop: 04/22/19 20:59 Last Admin: 03/23/19 17:19 Dose: 148 ml Documented by: Magnesium Hydroxide (Milk Of Magnesia) 30 ml PO DAILY PRN PRN Reason: Heartburn Stop: 04/24/19 08:44 Magnesium Oxide (Mag-Ox) 400 mg PO DAILY MAG Stop: 04/24/19 08:59 Last Admin: 03/27/19 08:36 Dose: 400 mg Documented by: Miscellaneous (Remove Nicoderm Patch) 1 ea N/A HS [facility] Stop: 04/24/19 21:59 Last Admin: 03/26/19 22:04 Dose: Not Given Documented by: Multivitamins (Multivitamin Tab) 1 tab PO DAILY MAG Stop: 04/24/19 08:59 Last Admin: 03/27/19 08:36 Dose: 1 tab Documented by: Nicotine (Nicoderm Cq) 14 mg TD QAM [facility] Stop: 04/24/19 08:59 Last Admin: 03/27/19 08:36 Dose: Not Given Documented by: Olanzapine (Zyprexa) 10 mg IM HS PRN PRN Reason: Undecided Stop: 04/24/19 08:44 Olanzapine (Zyprexa Zydis Od) 30 mg PO HS MAG Stop: 04/24/19 21:59 Last Admin: 03/26/19 22:04 Dose: 30 mg Documented by: Pyridoxine HCl (Vitamin B-6) 100 mg PO DAILY MAG Stop: 04/24/19 08:59 Last Admin: 03/27/19 08:37 Dose: 100 mg Documented by: Risperidone (Risperdal M) 1 mg PO BID PRN PRN Reason: psychosis Stop: 04/24/19 08:44 Sodium Chloride (B[place]keye Nasal) 1 - 2 sprays NA PRN PRN PRN Reason: Nasal Dryness/Congestion Stop: 04/24/19 08:44 Mental Health & Subst Abuse Tx Therapist Name of Therapist: Sammy Information Resources Director Name of Information Resources Director: Shruti Resendez Tasiajose Phone Number for Information Resources Director: Case Management Appointment Comment: [phone], [place] [address] Post Discharge Appointments Primary Care Physician Name Of Family Doctor: Dr. Lopez Contact Information Discharge Discharge Address: [address] [place] [address], [place] [address] CPT Code CPT Code 47482 (1) Schizophrenia Schizophrenia type: paranoid schizophrenia Qualified Code(s): F20.0 - Paranoid schizophrenia (2) Hypertension Hypertension type: essential hypertension Qualified Code(s): I10 - Essential (primary) hypertension
[2019-03-27] MEDS: cloNIDine HCL 0.1 MG TAB PO SCH (21:44)
[2019-03-27] MEDS: OLANZAPINE ZYDIS 10 MG ORALLY DIS. TAB PO SCH (21:44)
--- NOTE | 2019-03-28 08:54 | Psychiatric Progress Note ---
Date of Service March 28, 2019 Impression / Recommendations Impression 73-year-old male with schizophrenia who lives at the [facility] and was admitted involuntarily on 02/24/2019 with delusions, hallucinations, irritability and erratic behavior after rapid decompensation 1-2 weeks after he stopped taking his antipsychotic. He was found in a dumpster, floridly delusional, and was combative with [facility] staff. He refused resumption of olanzapine, but ultimately agreed to take aripiprazole. It initially appeared that he was responding favorably, although not completely, to the addition of aripiprazole. Because of the patient's long history of dangerous behaviors in the community associated with nonadherence with psychiatric medications, the a depo antipsychotic medication was recommended, and he initially agreed to Abilify Maintena; however, refused it when staff attempted to administer the injection (03/13/2019), and subsequently became much more oppositional and hostile towards staff, refusing to speak with a psychiatrist or other [facility] staff since that time. He continues to be uncooperative with treatment, refusing groups, refusing to talk with staff or clinicians, isolating in his room, and refusing mouth checks after Zyprexa Zydis, which he states he does not need. He is refusing a long-acting injectable, and has refused to meet with his outpatient housing case manager and alf staff. He has a clear history of dangerous behaviors during periods of nonadherence with medications in the community, and inpatient psychiatric hospitalization remains the least intensive, least restrictive level of care consistent with the patient's clinical and safety needs. He was referred to [facility] 03/23/2019. He refused to participate in a diversion meeting with his alf director and outpatient housing case manager on 03/24/19, and a second follow-up meeting is scheduled for 03/31/2019. It was reported his [facility] bed will not be held if he continues to refuse treatment and meetings - he is making no progress toward improving on this. (1) Schizophrenia: 02/25 - Continue home medication regimen - as refusing offerings of his antipsychotic, will likely require olanzapine IM (or alternative agent) over obj ection, given clear evidence of paranoia and delusional thought process - previously stabilized on this medication - Pt agreeable to taking all other medications, with exception of antipsychotic as mentioned above - Admitted to a locked inpatient behavioral health unit, on q15 minute safety checks - Encourage medication initiation/adjustments as indicated - Encourage participation in group and recreational therapies - Gather collateral information from outpatient providers and alf staff - Suggest family meeting to involve outpatient supports in safety planning - Reschedule appropriate aftercare appointments 02/26 -Patient indicates willingness to sign a release for the [facility] alf, will get collateral from their staff. -File for 303 involuntary commitment to be held tomorrow. -Recommend medications over objection, with an IM Zyprexa backup for refusal of oral medication. Involve outpatient treatment team to discuss ways to improve stability and compliance; consider long-acting injectable antipsychotic. -Order fasting labs for monitoring on an atypical antipsychotic once patient is more cooperative. 02/27 -The patient was retrained at his involuntary commitment hearing (303) this morning. -He has continuously and consistently refused psychiatric medications to date. However, today, when I explained that that a option that might become necessary in his case is medication over objection, and an intramuscular form, the patient said that he understood and that he would try medications that I prescribe. His initial preference would be olanzapine, but because olanzapine is not available in a long acting depot form, we would first like to try aripiprazole. He indicates that he is taken aripiprazole in the past and has been able to tolerate it, although he does not believe that it has been particularly helpful. -A trial dose of aripiprazole 15 mg by mouth, as a one-time dose, has been ordered and he assessed for efficacy. 02/28 -Appears to be tolerating initiation of Abilify so far. Remains delusional, paranoid. May consider further titration tomorrow -Aricept discontinued at patient's request on 02/27/2019. The medication has not been demonstrated to be efficacious for cognitive impairment associated with long-standing schizophrenia however we should be vigilant for slowing of mentation following discontinuation. 03/01 Patient fixated and irrational regarding access to clothing item as above today. Hospital environment becoming incorporated and delusions. Consider possibility that the aripiprazole is contributing to activation. We will increase to 20 mg tomorrow and also start Risperdal 1 mg p.o. twice daily as as needed. 03/02 - Continue with aripiprazole at 20mg daily, consider need for further titration - if tolerating and effective, eventual plan will be for conversion to Abilify Maintena - Pt has not yet utilized risperidone 03/03 - Increase aripiprazole to 25mg (equivalent to 30mg pill) and change to liquid formulation to decrease risk of cheeking/nonadherence, as patient does not believe he needs medication and had been noncompliant prior to hospitalization. - Fasting glucose and lipid profile ordered for tomorrow for monitoring on an atypical antipsychotic. - Private room due to psychosis, agitation, and inappropriate disrobing/sexual behavior. - Meeting with [facility] and [facility] staff when patient able to tolerate. 03/04 - Continue aripiprazole 25mg liquid (30mg pill equivalent) and continue to observe for improvement in thought process/content - consider conversion to Maintena if effective, versus trial of another agent if improvement remains limited - Fasting labs reviewed - all values WNL - Continue medically necessary private room - Request meeting with [facility] staff, in order to obtain details about patient's proximity to baseline 03/05 -Patient refusing liquid aripiprazole, but agrees to take the pill: Ordered 30 mg daily. -Schedule meeting with his housing case manager, [facility] and psych rehab staff. Consider involuntary outpatient commitment at the time of discharge. 03/06 -The patient has improved in that he is more reality based at this point. He continues to harbor fixed, systematized delusions, but is generally able to focus on reality based topics. -Although the patient tells me that he does not feel that aripiprazole has been effective, he is able to accept my opinion in the opinion of the staff that he has improved in response to aripiprazole. -The patient's main objection to aripiprazole oral solution is that he does not like the way it tastes, and within this context, he tells us that he is willing to accept Abilify Maintenaand requests that it be injected into his buttock. Abilify Maintena 300 mg IM ordered, and oral Abilify discontinued. We will resume oral Abilify if the patient subsequently changes his mind and refuses the injection. 03/07 resuming abilfiy oral given his refusal of FARAH form of abilify 03/08 is taking abilify po form but refusing abilify maintena form. advise close monitoring for potential of checking given pt's tendency to not want to take medications. 03/09 -The patient is flatly refusing to take aripiprazole in the form of Abilify Maintena. He is also been hesitant to take oral Abilify, but has been doing so. -The patient's lack of cooperation is thought possibly to be related to an un-expressed desire to not be discharged back to the community. He told me today that he left his meeting with his community providers after a few seconds because "just the side of them made me extremely anxious. My pulse elevated to 140." Later, he told me that he was still anxious about it and his pulse was "still around 130." The patient allowed me to take his pulse, and it was approximately 76. At that point he said, "did I say pulse? I meant systolic blood pressure." And when I pointed out that his systolic blood pressure of 130 is not considered to be a particular concern, he said "I mean diastolic." -Our hope had been that the patient would agree to accept a Depo form of medication. He was refusing Haldol Decanoate because of various side effects. Risperidone constant was ruled out as a first-line Depo medication because of the frequency of administration (the patient tends to get into power struggles over medications) and because he says that he is sensitive to "big needles." Invega would be an option, but currently the patient is being so uncooperative that our concern would be that he would cheek the oral tablets that we would have to give him first. Accordingly, the new strategy will be to discontinue Abilify, and resume olanzapine with olanzapine IM over objection if necessary. We will begin the olanzapine Zydis 20 mg at bedtime 03/10 -The patient took the prescribed dose of olanzapine Zydis 20 mg at bedtime last night. Today, he tells me that it "did not help at all." However, staff report that he has been somewhat more agreeable, more pleasant, and less paranoid today. -As he has with other providers, today he told me that I should have given him olanzapine 5 mg "to start", and I explained that he was already on olanzapine 20 mg when he came into the hospital and we know that he is able to tolerate that dose. He tells me that he did, in fact tolerate the dose and is not aware of any side effects, but, somewhat illogically, insisted that the dose was "too high for a starting dose." 03/11 - Continue current medication regimen at this time - olanzapine 20mg daily - Encourage participation in the milieu and in group programming as tolerated 03/12 -Continue current medication regimen. The patient's condition has not yet improved. -The patient does participate in select groups, but often tends to be disruptive. 03/13 -Today, the patient seems to be somewhat more cooperative and less frankly delusional. It was possible to engage in a mostly reality based conversation for 5 or 10 minutes at a time. Also, although he was unhappy with me when I refused to provide him with a dose of Valium for anxiety, he was able to remain pleasant and calm at this time, did not storm from the room." 03/14 and 03/15 -no change in medication will work on therapeutic alliance given patient is not participating 03/16 -304 involuntary commitment granted. -Patient remains completely uncooperative with treatment, refused his Zyprexa Zydis last evening, but then ultimately took it before he received the injection. I have a high suspicion for cheeking of antipsychotic medication, and we will continue to be vigilant with mouth checks, and work towards a long- acting injectable. 03/17 -Patient has been on Zyprexa 20 mg at bedtime for 1 week, with limited response. He is refusing to discuss other medication options. Per records, he has been prescribed up to 30 mg olanzapine in the past, so will increase his dose to this previously tolerated dose, as it is 1 of the few medications he has been willing to take. Continue IM backup for refusal, and Zyprexa Zydis formu lation to decrease risk of cheeking. He is not compliant with mouth checks, but have asked staff to try to observe him for 10 minutes after taking the Zydis to ensure he is not spitting it out before it dissolves. 03/18 -Continue Zyprexa Zydis 30 mg at bedtime with IM backup. Consider switch to a different medication (?oral paliperidone with IM backup) if irritability and agitation continues. He has tried virtually every atypical antipsychotic and reports none of them were effective (although some trials were short due to nonadherence) and has a history of dystonia on haloperidol. Clozapine would be a reasonable choice, but he has been unwilling to even discuss medication options. -Consider some component of cognitive decline which could be contributing to his worsening presentation and will need to be monitored and worked up further once he is more psychiatrically stable. -Refer to [facility] in the event that he does not improve and long-term inpatient treatment is needed. 03/19 - Proceed with [facility] referral. 03/20 - Continue current medication regimen; patient refused EKG and CXR yesterday - refused again today - Continue attempts to gather information to make a referral to [facility] 03/23 - Proceed with [facility] referral - patient has refused EKG and CXR for multiple attempts. We will send most recent tests available - Continue current medication regimen at this time 03/24 -Attempted to hold diversion meeting with his outpatient [facility], alf director, and the [facility] MH[facility]; patient refused to attend or participate in the meeting. 03/25 - 03/26 - Continue treatment plan as above - no change in patient's condition and he remains unwilling to participate meaningfully in treatment - Continue with [place] referral 03/27 -The patient has been informed that the plan at this point is to transfer him to [facility] for long-term inpatient psychiatric treatment, given his refusal to adhere with treatment and his associated behaviors in the community when not adherent with psychiatric treatment. -The patient continues to refuse mouth checks after given dosages of Zyprexa Zydis, and there is some question regarding whether he is actually ingesting this medication. He also would not cooperate with laboratory testing. -There has been a question regarding the patient's cognitive functions, and prior to admission he had been taking Aricept. When he does cooperate with this, I have not seen evidence of any substantial cognitive impairment. He may have mild cognitive impairment, but does not fully cooperate with formal cognitive assessment. He easily recalls the names of his providers, the names of the medications he is taking, the names of the various infectious agents that he believes are causing some of his psychiatric symptoms, the names of certain chemicals that he believes will rid him of the reference to infections, and is able to discuss current events such as recent news items. His assertion that he wants to return to his apartment in the community seems belied by his steadfast refusal to cooperate with those interventions I would make it possible for him to return, and there is some suspicion that although the patient remains floridly psychotic he may also be intentionally sabotaging discharge. 03/28 -There is been no private branch exchange repairer the past 2 weeks, and long-term inpatient treatment at the [facility] is indicated. (2) Substance abuse: 02/25 - Pt has reported history of substance abuse, and recommendation has consistently been for avoidance of substances with significant abuse potential. - PDMP queried - most recent prescriptions below - lorazepam 0.5mg #60 tabs for 30 day supply - Dr. Alves - filled 02/12/2019 - alprazolam 0.5mg #90 tabs for 30 day supply - Dr. Lopez - filled 01/16/2019 - temazepam 30mg #30 caps for 30 day supply - Dr. Lpoez - filled 01/16/2019 - Will continue lorazepam 0.5mg BID prn on admission, as only medication that is seemingly active - toxicology screen is negative for benzodiazepines, which questions if he has been taking the medication appropriately - Ideally will taper and discontinue the lorazepam, as recommendation remains that substances with abuse potential be avoided 02/26 -The patient's outpatient providers, during a meeting this morning, report that the patient tends to successfully convince physicians to prescribe benzodiazepines for him and that, in the past, he has abused him to the degree that he is practically obtunded. 02/27 -A repeat check of the PDMP reveals that the patient is consistently being prescribed lorazepam 0.5 mg twice daily (number 60/month) by a Dr. Brent Alves. He is also being prescribed alprazolam 0.[address] mg [address] Jeff Lopez, with the most recent previous prescription of alprazolam being on 01/16/[address] Lopez also prescribed temazepam 30 mg capsules #30 on 01/16/2019. According to his residential providers, no temazepam capsules were found among the patient's belongings. His most recent prescription for lorazepam 0.5 mg tablets was filled on 02/12/2019. 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 In the past, he reportedly has used clonazepam and temazepam. -I advised the patient that because of his history of misuse of benzodiazepines we would not be prescribing benzodiazepines during his hospital stay. An as needed order for lorazepam has not been used during hospital stay, and I discontinued the order today. 03/02 - Will need to coordinate care with his PCP and outpatient psychiatrist prior to discharge regarding the above. 03/04 - Charge nurse spoke with the above offices regarding concern for continued benzodiazepine prescriptions - Records will be faxed to their offices on discharge, as all benzodiazepines were discontinued during this hospitalization 03/06 -The patient did not request benzodiazepines and did not complain of anxiety today. I suggested to him that perhaps Abilify is also helping with anxiety in his case, and he responded by saying "perhaps." 03/09 -Today, the patient is insisting that what he needs is "benzodiazepines," and explains that the reason he "needs" benzodiazepines is that he has "benzodiazepine receptors," and that he is the only medications that work. He is unable to process warnings about the risks of benzodiazepines in the elderly, including increased risk of falls and mortality. Clearly, the patient is seeking benzodiazepines and has no insight into the associated risks. He also insists that he has never had trouble with benzodiazepines in the past, although there is well-documented of this. 03/10 -Today, the patient repeated his insistence that he needs benzodiazepines and that benzodiazepines are the only medications that work because he has "benzodiazepine receptors." After being told that everyone has central nervous system receptors to which benzodiazepines may attach, he replied, "That may be, but some of people need to have benzodiazepines forearm benzodiazepine receptors. 03/12 -Continues to request Benzodiazepines. 03/13 -Requests Valium for his "benzodiazepines receptors." 03/27 -Refuses to cooperate with assessment today, but has recently told staff that he needs "either Valium or Ativan." -The patient apparently has no working insight into his history of abuse of prescription medications (benzodiazepines). (3) Hypertension: 02/25 - Continue home dose of clonidine 0.1mg qHS 03/01 Watch mildly elevated blood pressures as patient has been refusing clonidine 03/03 - BP normal past two days, and low today 03/10 -The patient's blood pressure today was 136/73. His pulse was 71 03/14 - elevated BP it is not urgent but will need monitored. 03/15 - BP WNL 03/26 - BP continues to be WNL Inventory Assets Strengths: -Intelligence. Support of community providers. Well educated. Needs: Resume symptom-stabilizing medication regimen, coordinate care with alf Risk Factors Assessment Male: Yes : Yes Do You Have Access To A Gun?: No Health Problems: Yes Mental Health Diagnoses: Yes Substance Use Disorders: Yes Protective Factors Assessment Rastafari Beliefs: No : No Responsible for Young Children: No Employed: No Stable Relationships: No Supportive Family: No Good Rapport with Provider: No Interval History Identifying Information SCOTT ROBERTO is a 73-year-old M who currently lives at a [facility] in [place]. Pt has a history of schizophrenia and is known to our unit from several previous admissions, most recently in 09/2016. Pt and was admitted on 02/24/19 16:40 on a 302 involuntary commitment for exacerbation of schizophrenia and heightened paranoia resulting in belief he needed to hide in a dumpster to seek refuge from impending bombings. Pt was found by [facility] staff and brought to the ED by police. He is on a 304 involuntary commitment as of 03/16/19. Chief Complaint "Get out of here!" Review of Systems Sleep Information Total Hours of Sleep: 6.75 Sleep Comments: toileted then came out to the kitchen to eat cereals with milk around 0210. he went back to bed/ sleep afterward Meal Information Percent Meal Consumed - Breakfast: 100 Percent Meal Consumed - Lunch: 100 Percent Meal Consumed - Dinner: 100 Nutrition Comment: per meal record Subjective Subjective Patient was seen & assessed and interval progress reviewed with nursing and social work. Staff report he remains uncooperative, refusing to sign his treatment plans, isolating in his room, and won't engage with staff. The [facility] stated they didn't receive the referral as their fax machine was broken, so it was resent. On my assessment, he was seen in his room, where he was seated in a reclining position on his bed. He demanded that I leave, and said "don't ask me any questions." When asked if he had any needs that we could help address, he said he wanted his clothes, specifically his stretch pants which she has been informed are not allowed. While explaining the rationale for this, he interrupted to say "leave me alone!" He did not respond to attempts to further engage him. Physical Exam Psychiatric Orientation: alert; + uncooperative Apperance: appropriately groomed and appeared stated age Wearing black stretch pants, sport sandals, and a longsleeved shirt; the same close he has been wearing for weeks. Eye Contact: + poor eye contact Motor Behavior: no abnormal motor movements Angry tone. Affect: + irritable affect and + constricted affect Patient will not respond to questions. Thought Process: goal directed thought process Insight: + severely impaired insight Judgement: + impaired judgement Vital Signs (Past 24 Hours) Last Vital Signs Temp 36.7 C 03/28/19 06:33 Pulse 88 03/28/19 06:34 Resp 16 03/28/19 06:33 BP 132/83 03/28/19 06:34 Pulse Ox 96 02/24/19 08:10 Results & Data Current Inpatient Medications Current Inpatient Medications: Current Inpatient Medications Acetaminophen (Tylenol) 650 mg PO Q4H PRN PRN Reason: Headache or Minor Fever Stop: 04/24/19 08:39 Al Hydrox/Mg Hydrox/Simethicone (Maalox) 30 ml PO Q4H PRN PRN Reason: GI Upset Stop: 04/24/19 08:39 Benztropine Mesylate (Cogentin) 0.5 mg PO BID PRN PRN Reason: dystonia Stop: 04/24/19 08:39 Bismuth Subsalicylate (Kaopectate) 15 ml PO PRN PRN PRN Reason: Loose Stool Stop: 04/24/19 08:39 Clonidine HCl (Catapres) 0.1 mg PO HS MAG Stop: 04/24/19 21:59 Last Admin: 03/27/19 21:44 Dose: 0.1 mg Documented by: Cyanocobalamin (Vitamin B-12) 500 mcg PO DAILY MAG Stop: 04/24/19 08:59 Last Admin: 03/27/19 08:37 Dose: 500 mcg Documented by: Hydroxyzine HCl (Vistaril) 50 mg PO HSZ PRN PRN Reason: Insomnia Stop: 04/24/19 08:44 Hydroxyzine HCl (Vistaril) 25 mg PO Q4H PRN PRN Reason: Anxiety Stop: 04/24/19 08:44 Magnesium Citrate (Citrate) 148 ml PO BID PRN PRN Reason: constipation Stop: 04/22/19 20:59 Last Admin: 03/23/19 17:19 Dose: 148 ml Documented by: Magnesium Hydroxide (Milk Of Magnesia) 30 ml PO DAILY PRN PRN Reason: Heartburn Stop: 04/24/19 08:44 Magnesium Oxide (Mag-Ox) 400 mg PO DAILY MAG Stop: 04/24/19 08:59 Last Admin: 03/27/19 08:36 Dose: 400 mg Documented by: Miscellaneous (Remove Nicoderm Patch) 1 ea N/A HS MAG Stop: 04/24/19 21:59 Last Admin: 03/27/19 21:44 Dose: Not Given Documented by: Multivitamins (Multivitamin Tab) 1 tab PO DAILY MAG Stop: 04/24/19 08:59 Last Admin: 03/27/19 08:36 Dose: 1 tab Documented by: Nicotine (Nicoderm Cq) 14 mg TD QAM MAG Stop: 04/24/19 08:59 Last Admin: 03/27/19 08:36 Dose: Not Given Documented by: Olanzapine (Zyprexa) 10 mg IM HS PRN PRN Reason: Undecided Stop: 04/24/19 08:44 Olanzapine (Zyprexa Zydis Od) 30 mg PO HS MAG Stop: 04/24/19 21:59 Last Admin: 03/27/19 21:44 Dose: 30 mg Documented by: Pyridoxine HCl (Vitamin B-6) 100 mg PO DAILY MAG Stop: 04/24/19 08:59 Last Admin: 03/27/19 08:37 Dose: 100 mg Documented by: Risperidone (Risperdal M) 1 mg PO BID PRN PRN Reason: psychosis Stop: 04/24/19 08:44 Sodium Chloride ([place] Nasal) 1 - 2 sprays NA PRN PRN PRN Reason: Nasal Dryness/Congestion Stop: 04/24/19 08:44 Mental Health & Subst Abuse Tx Therapist Name of Therapist: Denies Kindergartner Name of Kindergartner: Shruti Lopez Phone Number for Kindergartner: Case Management Appointment Comment: [phone], [place] [address] Post Discharge Appointments Primary Care Physician Name Of Family Doctor: Dr. Lopez Contact Information Discharge Discharge Address: [address] [place] [id number] CPT Code CPT Code 10187 33 (1) Schizophrenia Schizophrenia type: paranoid schizophrenia Qualified Code(s): F20.0 - Paranoid schizophrenia (2) Hypertension Hypertension type: essential hypertension Qualified Code(s): I10 - Essential (primary) hypertension
[2019-03-28] MEDS: CYANOCOBALAMIN 500 MCG TABLET (VITAMIN B-12) PO SCH (09:09)
[2019-03-28] MEDS: MAGNESIUM OXIDE 400 MG TAB PO SCH (09:09)
[2019-03-28] MEDS: MULTIVITAMIN TAB PO SCH (09:09)
[2019-03-28] MEDS: PYRIDOXINE HCL 50 MG TAB PO SCH (09:09)
[2019-03-28] MEDS: NICOTINE 14 MG/24 HR PATCH TD SCH (09:13)
[2019-03-28] MEDS: cloNIDine HCL 0.1 MG TAB PO SCH (21:08)
[2019-03-28] MEDS: OLANZAPINE ZYDIS 10 MG ORALLY DIS. TAB PO SCH (21:09)
--- NOTE | 2019-03-29 08:12 | Psychiatric Progress Note ---
Date of Service March 29, 2019 Impression / Recommendations Impression 73-year-old male with schizophrenia who lives at the [facility] and was admitted involuntarily on 02/24/2019 with delusions, hallucinations, irritability and erratic behavior after rapid decompensation 1-2 weeks after he stopped taking his antipsychotic. He was found in a dumpster, floridly delusional, and was combative with [facility] staff. He refused resumption of olanzapine, but ultimately agreed to take aripiprazole. It initially appeared that he was responding favorably, although not completely, to the addition of aripiprazole. Because of the patient's long history of dangerous behaviors in the community associated with nonadherence with psychiatric medications, the a depo antipsychotic medication was recommended, and he initially agreed to Abilify Maintena; however, refused it when staff attempted to administer the injection (03/13/2019), and subsequently became much more oppositional and hostile towards staff, refusing to speak with a psychiatrist or other [facility] staff since that time. He continues to be uncooperative with treatment, refusing groups, refusing to talk with staff or clinicians, isolating in his room, and refusing mouth checks after Zyprexa Zydis, which he states he does not need. He is refusing a long-acting injectable, and has refused to meet with his outpatient case consultant and correction staff. He has a clear history of dangerous behaviors during periods of nonadherence with medications in the community, and inpatient psychiatric hospitalization remains the least intensive, least restrictive level of care consistent with the patient's clinical and safety needs. He was referred to [facility] 03/23/2019. He refused to participate in a diversion meeting with his correction director and outpatient case consultant on 03/24/19, and a second follow-up meeting is scheduled for 03/31/2019. It was reported his [facility] bed will not be held if he continues to refuse treatment and meetings - he is making no progress toward improving on this. (1) Schizophrenia: 02/25 - Continue home medication regimen - as refusing offerings of his antipsychotic, will likely require olanzapine IM (or alternative agent) over obj ection, given clear evidence of paranoia and delusional thought process - previously stabilized on this medication - Pt agreeable to taking all other medications, with exception of antipsychotic as mentioned above - Admitted to a locked inpatient behavioral health unit, on q15 minute safety checks - Encourage medication initiation/adjustments as indicated - Encourage participation in group and recreational therapies - Gather collateral information from outpatient providers and correction staff - Suggest family meeting to involve outpatient supports in safety planning - Reschedule appropriate aftercare appointments 02/26 -Patient indicates willingness to sign a release for the [facility] correction, will get collateral from their staff. -File for 303 involuntary commitment to be held tomorrow. -Recommend medications over objection, with an IM Zyprexa backup for refusal of oral medication. Involve outpatient treatment team to discuss ways to improve stability and compliance; consider long-acting injectable antipsychotic. -Order fasting labs for monitoring on an atypical antipsychotic once patient is more cooperative. 02/27 -The patient was retrained at his involuntary commitment hearing (303) this morning. -He has continuously and consistently refused psychiatric medications to date. However, today, when I explained that that a option that might become necessary in his case is medication over objection, and an intramuscular form, the patient said that he understood and that he would try medications that I prescribe. His initial preference would be olanzapine, but because olanzapine is not available in a long acting depot form, we would first like to try aripiprazole. He indicates that he is taken aripiprazole in the past and has been able to tolerate it, although he does not believe that it has been particularly helpful. -A trial dose of aripiprazole 15 mg by mouth, as a one-time dose, has been ordered and he assessed for efficacy. 02/28 -Appears to be tolerating initiation of Abilify so far. Remains delusional, paranoid. May consider further titration tomorrow -Aricept discontinued at patient's request on 02/27/2019. The medication has not been demonstrated to be efficacious for cognitive impairment associated with long-standing schizophrenia however we should be vigilant for slowing of mentation following discontinuation. 03/01 Patient fixated and irrational regarding access to clothing item as above today. Hospital environment becoming incorporated and delusions. Consider possibility that the aripiprazole is contributing to activation. We will increase to 20 mg tomorrow and also start Risperdal 1 mg p.o. twice daily as as needed. 03/02 - Continue with aripiprazole at 20mg daily, consider need for further titration - if tolerating and effective, eventual plan will be for conversion to Abilify Maintena - Pt has not yet utilized risperidone 03/03 - Increase aripiprazole to 25mg (equivalent to 30mg pill) and change to liquid formulation to decrease risk of cheeking/nonadherence, as patient does not believe he needs medication and had been noncompliant prior to hospitalization. - Fasting glucose and lipid profile ordered for tomorrow for monitoring on an atypical antipsychotic. - Private room due to psychosis, agitation, and inappropriate disrobing/sexual behavior. - Meeting with [facility] and [facility] staff when patient able to tolerate. 03/04 - Continue aripiprazole 25mg liquid (30mg pill equivalent) and continue to observe for improvement in thought process/content - consider conversion to Maintena if effective, versus trial of another agent if improvement remains limited - Fasting labs reviewed - all values WNL - Continue medically necessary private room - Request meeting with [facility] staff, in order to obtain details about patient's proximity to baseline 03/05 -Patient refusing liquid aripiprazole, but agrees to take the pill: Ordered 30 mg daily. -Schedule meeting with his case consultant, [facility] and psych rehab staff. Consider involuntary outpatient commitment at the time of discharge. 03/06 -The patient has improved in that he is more reality based at this point. He continues to harbor fixed, systematized delusions, but is generally able to focus on reality based topics. -Although the patient tells me that he does not feel that aripiprazole has been effective, he is able to accept my opinion in the opinion of the staff that he has improved in response to aripiprazole. -The patient's main objection to aripiprazole oral solution is that he does not like the way it tastes, and within this context, he tells us that he is willing to accept Abilify Maintenaand requests that it be injected into his buttock. Abilify Maintena 300 mg IM ordered, and oral Abilify discontinued. We will resume oral Abilify if the patient subsequently changes his mind and refuses the injection. 03/07 resuming abilfiy oral given his refusal of FARAH form of abilify 03/08 is taking abilify po form but refusing abilify maintena form. advise close monitoring for potential of checking given pt's tendency to not want to take medications. 03/09 -The patient is flatly refusing to take aripiprazole in the form of Abilify Maintena. He is also been hesitant to take oral Abilify, but has been doing so. -The patient's lack of cooperation is thought possibly to be related to an un-expressed desire to not be discharged back to the community. He told me today that he left his meeting with his community providers after a few seconds because "just the side of them made me extremely anxious. My pulse elevated to 140." Later, he told me that he was still anxious about it and his pulse was "still around 130." The patient allowed me to take his pulse, and it was approximately 76. At that point he said, "did I say pulse? I meant systolic blood pressure." And when I pointed out that his systolic blood pressure of 130 is not considered to be a particular concern, he said "I mean diastolic." -Our hope had been that the patient would agree to accept a Depo form of medication. He was refusing Haldol Decanoate because of various side effects. Risperidone constant was ruled out as a first-line Depo medication because of the frequency of administration (the patient tends to get into power struggles over medications) and because he says that he is sensitive to "big needles." Invega would be an option, but currently the patient is being so uncooperative that our concern would be that he would cheek the oral tablets that we would have to give him first. Accordingly, the new strategy will be to discontinue Abilify, and resume olanzapine with olanzapine IM over objection if necessary. We will begin the olanzapine Zydis 20 mg at bedtime 03/10 -The patient took the prescribed dose of olanzapine Zydis 20 mg at bedtime last night. Today, he tells me that it "did not help at all." However, staff report that he has been somewhat more agreeable, more pleasant, and less paranoid today. -As he has with other providers, today he told me that I should have given him olanzapine 5 mg "to start", and I explained that he was already on olanzapine 20 mg when he came into the hospital and we know that he is able to tolerate that dose. He tells me that he did, in fact tolerate the dose and is not aware of any side effects, but, somewhat illogically, insisted that the dose was "too high for a starting dose." 03/11 - Continue current medication regimen at this time - olanzapine 20mg daily - Encourage participation in the milieu and in group programming as tolerated 03/12 -Continue current medication regimen. The patient's condition has not yet improved. -The patient does participate in select groups, but often tends to be disruptive. 03/13 -Today, the patient seems to be somewhat more cooperative and less frankly delusional. It was possible to engage in a mostly reality based conversation for 5 or 10 minutes at a time. Also, although he was unhappy with me when I refused to provide him with a dose of Valium for anxiety, he was able to remain pleasant and calm at this time, did not storm from the room." 03/14 and 03/15 -no change in medication will work on therapeutic alliance given patient is not participating 03/16 -304 involuntary commitment granted. -Patient remains completely uncooperative with treatment, refused his Zyprexa Zydis last evening, but then ultimately took it before he received the injection. I have a high suspicion for cheeking of antipsychotic medication, and we will continue to be vigilant with mouth checks, and work towards a long- acting injectable. 03/17 -Patient has been on Zyprexa 20 mg at bedtime for 1 week, with limited response. He is refusing to discuss other medication options. Per records, he has been prescribed up to 30 mg olanzapine in the past, so will increase his dose to this previously tolerated dose, as it is 1 of the few medications he has been willing to take. Continue IM backup for refusal, and Zyprexa Zydis formu lation to decrease risk of cheeking. He is not compliant with mouth checks, but have asked staff to try to observe him for 10 minutes after taking the Zydis to ensure he is not spitting it out before it dissolves. 03/18 -Continue Zyprexa Zydis 30 mg at bedtime with IM backup. Consider switch to a different medication (?oral paliperidone with IM backup) if irritability and agitation continues. He has tried virtually every atypical antipsychotic and reports none of them were effective (although some trials were short due to nonadherence) and has a history of dystonia on haloperidol. Clozapine would be a reasonable choice, but he has been unwilling to even discuss medication options. -Consider some component of cognitive decline which could be contributing to his worsening presentation and will need to be monitored and worked up further once he is more psychiatrically stable. -Refer to [facility] in the event that he does not improve and long-term inpatient treatment is needed. 03/19 - Proceed with [facility] referral. 03/20 - Continue current medication regimen; patient refused EKG and CXR yesterday - refused again today - Continue attempts to gather information to make a referral to [facility] 03/23 - Proceed with [facility] referral - patient has refused EKG and CXR for multiple attempts. We will send most recent tests available - Continue current medication regimen at this time 03/24 -Attempted to hold diversion meeting with his outpatient [facility], correction director, and the [facility]; patient refused to attend or participate in the meeting. 03/25 - 03/26 - Continue treatment plan as above - no change in patient's condition and he remains unwilling to participate meaningfully in treatment - Continue with [facility] referral 03/27 -The patient has been informed that the plan at this point is to transfer him to [facility] for long-term inpatient psychiatric treatment, given his refusal to adhere with treatment and his associated behaviors in the community when not adherent with psychiatric treatment. -The patient continues to refuse mouth checks after given dosages of Zyprexa Zydis, and there is some question regarding whether he is actually ingesting this medication. He also would not cooperate with laboratory testing. -There has been a question regarding the patient's cognitive functions, and prior to admission he had been taking Aricept. When he does cooperate with this, I have not seen evidence of any substantial cognitive impairment. He may have mild cognitive impairment, but does not fully cooperate with formal cognitive assessment. He easily recalls the names of his providers, the names of the medications he is taking, the names of the various infectious agents that he believes are causing some of his psychiatric symptoms, the names of certain chemicals that he believes will rid him of the reference to infections, and is able to discuss current events such as recent news items. His assertion that he wants to return to his apartment in the community seems belied by his steadfast refusal to cooperate with those interventions I would make it possible for him to return, and there is some suspicion that although the patient remains floridly psychotic he may also be intentionally sabotaging discharge. 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 (2) Substance abuse: 02/25 - Pt has reported history of substance abuse, and recommendation has consistently been for avoidance of substances with significant abuse potential. - PDMP queried - most recent prescriptions below - lorazepam 0.5mg #60 tabs for 30 day supply - Dr. Alves - filled 02/12/2019 - alprazolam 0.5mg #90 tabs for 30 day supply - Dr. Lopez - filled 01/16/2019 - temazepam 30mg #30 caps for 30 day supply - Dr. Lopez - filled 01/16/2019 - Will continue lorazepam 0.5mg BID prn on admission, as only medication that is seemingly active - toxicology screen is negative for benzodiazepines, which questions if he has been taking the medication appropriately - Ideally will taper and discontinue the lorazepam, as recommendation remains that substances with abuse potential be avoided 02/26 -The patient's outpatient providers, during a meeting this morning, report that the patient tends to successfully convince physicians to prescribe benzodiazepines for him and that, in the past, he has abused him to the degree that he is practically obtunded. 02/27 -A repeat check of the PDMP reveals that the patient is consistently being prescribed lorazepam 0.5 mg twice daily (number 60/month) by a Dr. Brent Alves. He is also being prescribed alprazolam 0.[address] mg [address] Jeff Lopez, with the most recent previous prescription of alprazolam being on 01/16/[address] Lopez also prescribed temazepam 30 mg capsules #30 on 01/16/2019. According to his residential providers, no temazepam capsules were found among the patient's belongings. His most recent prescription for lorazepam 0.5 mg tablets was filled on 02/12/2019. 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 In the past, he reportedly has used clonazepam and temazepam. -I advised the patient that because of his history of misuse of benzodiazepines we would not be prescribing benzodiazepines during his hospital stay. An as needed order for lorazepam has not been used during hospital stay, and I discontinued the order today. 03/02 - Will need to coordinate care with his PCP and outpatient psychiatrist prior to discharge regarding the above. 03/04 - Charge nurse spoke with the above offices regarding concern for continued benzodiazepine prescriptions - Records will be faxed to their offices on discharge, as all benzodiazepines were discontinued during this hospitalization 03/06 -The patient did not request benzodiazepines and did not complain of anxiety today. I suggested to him that perhaps Abilify is also helping with anxiety in his case, and he responded by saying "perhaps." 03/09 -Today, the patient is insisting that what he needs is "benzodiazepines," and explains that the reason he "needs" benzodiazepines is that he has "benzodiazepine receptors," and that he is the only medications that work. He is unable to process warnings about the risks of benzodiazepines in the elderly, including increased risk of falls and mortality. Clearly, the patient is seeking benzodiazepines and has no insight into the associated risks. He also insists that he has never had trouble with benzodiazepines in the past, although there is well-documented of this. 03/10 -Today, the patient repeated his insistence that he needs benzodiazepines and that benzodiazepines are the only medications that work because he has "benzodiazepine receptors." After being told that everyone has central nervous system receptors to which benzodiazepines may attach, he replied, "That may be, but some of people need to have benzodiazepines forearm benzodiazepine receptors. 03/12 -Continues to request Benzodiazepines. 03/13 -Requests Valium for his "benzodiazepines receptors." 03/27 -Refuses to cooperate with assessment today, but has recently told staff that he needs "either Valium or Ativan." -The patient apparently has no working insight into his history of abuse of prescription medications (benzodiazepines). (3) Hypertension: 02/25 - Continue home dose of clonidine 0.1mg qHS 03/01 Watch mildly elevated blood pressures as patient has been refusing clonidine 03/03 - BP normal past two days, and low today 03/10 -The patient's blood pressure today was 136/73. His pulse was 71 03/14 - elevated BP it is not urgent but will need monitored. 03/15 - BP WNL 03/26 - BP continues to be WNL Inventory Assets Strengths: -Intelligence. Support of community providers. Well educated. Needs: Resume symptom-stabilizing medication regimen, coordinate care with correction Risk Factors Assessment Male: Yes : Yes Do You Have Access To A Gun?: No Health Problems: Yes Mental Health Diagnoses: Yes Substance Use Disorders: Yes Protective Factors Assessment Taoism Beliefs: No : No Responsible for Young Children: No Employed: No Stable Relationships: No Supportive Family: No Good Rapport with Provider: No Interval History Identifying Information SCOTT ROBERTO is a 73-year-old M who currently lives at a [facility] in [place]. Pt has a history of schizophrenia and is known to our unit from several previous admissions, most recently in 09/2016. Pt and was admitted on 02/24/19 16:40 on a 302 involuntary commitment for exacerbation of schizophrenia and heightened paranoia resulting in belief he needed to hide in a dumpster to seek refuge from impending bombings. Pt was found by [facility] staff and brought to the ED by police. He is on a 304 involuntary commitment as of 03/16/19. Chief Complaint Patient nonverbal, refusing to answer. Review of Systems Sleep Information Total Hours of Sleep: 7.25 Sleep Comments: toileted then came out to the kitchen to eat cereals with milk around 0210. he went back to bed/ sleep afterward Meal Information Percent Meal Consumed - Breakfast: 100 Percent Meal Consumed - Lunch: 100 Percent Meal Consumed - Dinner: 100 Nutrition Comment: per meal record Subjective Subjective Patient was seen & assessed and interval progress reviewed with nursing and social work. Staff report he continues to isolate in his room, does not interact with others, although did sit on the periphery of an activity group and watched peers play video games. He took his medication, and performing ADLs independently. He has very limited interactions with staff, and does not engage with peers. On my assessment, he was seen in his room, where he was lying in initially with eyes open, but closed that when I approached his room, and did not answer any questions or respond. Physical Exam Psychiatric Orientation: alert; + uncooperative Apperance: appropriately dressed wearing the same clothes for weeks No eye contact - closes eyes and won't open them Motor Behavior: no abnormal motor movements No speech Affect: + irritable affect Patient will not answer questions or engage in the interview Insight: + severely impaired insight Judgement: + severely impaired judgement Vital Signs (Past 24 Hours) Last Vital Signs Temp 36.7 C 03/29/19 06:38 Pulse 72 03/29/19 06:39 Resp 16 03/29/19 06:38 BP 114/72 03/29/19 06:39 Pulse Ox 96 02/24/19 08:10 Results & Data Current Inpatient Medications Current Inpatient Medications: Current Inpatient Medications Acetaminophen (Tylenol) 650 mg PO Q4H PRN PRN Reason: Headache or Minor Fever Stop: 04/24/19 08:39 Al Hydrox/Mg Hydrox/Simethicone (Maalox) 30 ml PO Q4H PRN PRN Reason: GI Upset Stop: 04/24/19 08:39 Benztropine Mesylate (Cogentin) 0.5 mg PO BID PRN PRN Reason: dystonia Stop: 04/24/19 08:39 Bismuth Subsalicylate (Kaopectate) 15 ml PO PRN PRN PRN Reason: Loose Stool Stop: 04/24/19 08:39 Clonidine HCl (Catapres) 0.1 mg PO [facility] Stop: 04/24/19 21:59 Last Admin: 03/28/19 21:08 Dose: 0.1 mg Documented by: Cyanocobalamin (Vitamin B-12) 500 mcg PO DAILY MAG Stop: 04/24/19 08:59 Last Admin: 03/28/19 09:09 Dose: 500 mcg Documented by: Hydroxyzine HCl (Vistaril) 50 mg PO HSZ PRN PRN Reason: Insomnia Stop: 04/24/19 08:44 Hydroxyzine HCl (Vistaril) 25 mg PO Q4H PRN PRN Reason: Anxiety Stop: 04/24/19 08:44 Magnesium Citrate (Citrate) 148 ml PO BID PRN PRN Reason: constipation Stop: 04/22/19 20:59 Last Admin: 03/23/19 17:19 Dose: 148 ml Documented by: Magnesium Hydroxide (Milk Of Magnesia) 30 ml PO DAILY PRN PRN Reason: Heartburn Stop: 04/24/19 08:44 Magnesium Oxide (Mag-Ox) 400 mg PO DAILY MAG Stop: 04/24/19 08:59 Last Admin: 03/28/19 09:09 Dose: 400 mg Documented by: Miscellaneous (Remove Nicoderm Patch) 1 ea N/A HS [facility] Stop: 04/24/19 21:59 Last Admin: 03/28/19 21:12 Dose: Not Given Documented by: Multivitamins (Multivitamin Tab) 1 tab PO DAILY MAG Stop: 04/24/19 08:59 Last Admin: 03/28/19 09:09 Dose: 1 tab Documented by: Nicotine (Nicoderm Cq) 14 mg TD QAM MAG Stop: 04/24/19 08:59 Last Admin: 03/28/19 09:13 Dose: Not Given Documented by: Olanzapine (Zyprexa) 10 mg IM HS PRN PRN Reason: Undecided Stop: 04/24/19 08:44 Olanzapine (Zyprexa Zydis Od) 30 mg PO HS MAG Stop: 04/24/19 21:59 Last Admin: 03/28/19 21:09 Dose: 30 mg Documented by: Pyridoxine HCl (Vitamin B-6) 100 mg PO DAILY MAG Stop: 04/24/19 08:59 Last Admin: 03/28/19 09:09 Dose: 100 mg Documented by: Risperidone (Risperdal M) 1 mg PO BID PRN PRN Reason: psychosis Stop: 04/24/19 08:44 Sodium Chloride ([place] Nasal) 1 - 2 sprays NA PRN PRN PRN Reason: Nasal Dryness/Congestion Stop: 04/24/19 08:44 Mental Health & Subst Abuse Tx Therapist Name of Therapist: Denies Tax Record Clerk Name of Tax Record Clerk: Shruti Lopez Phone Number for Tax Record Clerk: Case Management Appointment Comment: [id number], [place] [address] Post Discharge Appointments Primary Care Physician Name Of Family Doctor: Dr. Lopez Contact Information Discharge Discharge Address: [address] [place] [id number] CPT Code CPT Code 44200 (1) Schizophrenia Schizophrenia type: paranoid schizophrenia Qualified Code(s): F20.0 - Paranoid schizophrenia (2) Hypertension Hypertension type: essential hypertension Qualified Code(s): I10 - Essential (primary) hypertension
[2019-03-29] MEDS: MULTIVITAMIN TAB PO SCH (08:28)
[2019-03-29] MEDS: PYRIDOXINE HCL 50 MG TAB PO SCH (08:28)
[2019-03-29] MEDS: MAGNESIUM OXIDE 400 MG TAB PO SCH (08:28)
[2019-03-29] MEDS: CYANOCOBALAMIN 500 MCG TABLET (VITAMIN B-12) PO SCH (08:28)
[2019-03-29] MEDS: NICOTINE 14 MG/24 HR PATCH TD SCH (08:29)
[2019-03-29] MEDS: cloNIDine HCL 0.1 MG TAB PO SCH (20:55)
[2019-03-29] MEDS: OLANZAPINE ZYDIS 10 MG ORALLY DIS. TAB PO SCH (20:55)
--- NOTE | 2019-03-30 09:12 | Psychiatric Progress Note ---
Date of Service March 30, 2019 Impression / Recommendations Impression 73-year-old male with schizophrenia who lives at the [facility] and was admitted involuntarily on 02/24/2019 with delusions, hallucinations, irritability and erratic behavior after rapid decompensation 1-2 weeks after he stopped taking his antipsychotic. He was found in a dumpster, floridly delusional, and was combative with [facility] staff. He refused resumption of olanzapine, but ultimately agreed to take aripiprazole. It initially appeared that he was responding favorably, although not completely, to the addition of aripiprazole. Because of the patient's long history of dangerous behaviors in the community associated with nonadherence with psychiatric medications, the a depo antipsychotic medication was recommended, and he initially agreed to Abilify Maintena; however, refused it when staff attempted to administer the injection (03/13/2019), and subsequently became much more oppositional and hostile towards staff, refusing to speak with a psychiatrist or other [facility] staff since that time. He continues to be uncooperative with treatment, refusing groups, refusing to talk with staff or clinicians, isolating in his room, and refusing mouth checks after Zyprexa Zydis, which he states he does not need. He is refusing a long-acting injectable, and has refused to meet with his outpatient supportive employment case manager and alf staff. He has a clear history of dangerous behaviors during periods of nonadherence with medications in the community, and inpatient psychiatric hospitalization remains the least intensive, least restrictive level of care consistent with the patient's clinical and safety needs. He was referred to [facility] 03/23/2019. He refused to participate in a diversion meeting with his alf director and outpatient supportive employment case manager on 03/24/19, and a second follow-up meeting is scheduled for 03/31/2019. It was reported his [facility] bed will not be held if he continues to refuse treatment and meetings - he is making no progress toward improving on this. (1) Schizophrenia: 02/25 - Continue home medication regimen - as refusing offerings of his antipsychotic, will likely require olanzapine IM (or alternative agent) over obj ection, given clear evidence of paranoia and delusional thought process - previously stabilized on this medication - Pt agreeable to taking all other medications, with exception of antipsychotic as mentioned above - Admitted to a locked inpatient behavioral health unit, on q15 minute safety checks - Encourage medication initiation/adjustments as indicated - Encourage participation in group and recreational therapies - Gather collateral information from outpatient providers and alf staff - Suggest family meeting to involve outpatient supports in safety planning - Reschedule appropriate aftercare appointments 02/26 -Patient indicates willingness to sign a release for the [facility] alf, will get collateral from their staff. -File for 303 involuntary commitment to be held tomorrow. -Recommend medications over objection, with an IM Zyprexa backup for refusal of oral medication. Involve outpatient treatment team to discuss ways to improve stability and compliance; consider long-acting injectable antipsychotic. -Order fasting labs for monitoring on an atypical antipsychotic once patient is more cooperative. 02/27 -The patient was retrained at his involuntary commitment hearing (303) this morning. -He has continuously and consistently refused psychiatric medications to date. However, today, when I explained that that a option that might become necessary in his case is medication over objection, and an intramuscular form, the patient said that he understood and that he would try medications that I prescribe. His initial preference would be olanzapine, but because olanzapine is not available in a long acting depot form, we would first like to try aripiprazole. He indicates that he is taken aripiprazole in the past and has been able to tolerate it, although he does not believe that it has been particularly helpful. -A trial dose of aripiprazole 15 mg by mouth, as a one-time dose, has been ordered and he assessed for efficacy. 02/28 -Appears to be tolerating initiation of Abilify so far. Remains delusional, paranoid. May consider further titration tomorrow -Aricept discontinued at patient's request on 02/27/2019. The medication has not been demonstrated to be efficacious for cognitive impairment associated with long-standing schizophrenia however we should be vigilant for slowing of mentation following discontinuation. 03/01 Patient fixated and irrational regarding access to clothing item as above today. Hospital environment becoming incorporated and delusions. Consider possibility that the aripiprazole is contributing to activation. We will increase to 20 mg tomorrow and also start Risperdal 1 mg p.o. twice daily as as needed. 03/02 - Continue with aripiprazole at 20mg daily, consider need for further titration - if tolerating and effective, eventual plan will be for conversion to Abilify Maintena - Pt has not yet utilized risperidone 03/03 - Increase aripiprazole to 25mg (equivalent to 30mg pill) and change to liquid formulation to decrease risk of cheeking/nonadherence, as patient does not believe he needs medication and had been noncompliant prior to hospitalization. - Fasting glucose and lipid profile ordered for tomorrow for monitoring on an atypical antipsychotic. - Private room due to psychosis, agitation, and inappropriate disrobing/sexual behavior. - Meeting with [facility] and [facility] staff when patient able to tolerate. 03/04 - Continue aripiprazole 25mg liquid (30mg pill equivalent) and continue to observe for improvement in thought process/content - consider conversion to Maintena if effective, versus trial of another agent if improvement remains limited - Fasting labs reviewed - all values WNL - Continue medically necessary private room - Request meeting with [facility] staff, in order to obtain details about patient's proximity to baseline 03/05 -Patient refusing liquid aripiprazole, but agrees to take the pill: Ordered 30 mg daily. -Schedule meeting with his supportive employment case manager, [facility] and psych rehab staff. Consider involuntary outpatient commitment at the time of discharge. 03/06 -The patient has improved in that he is more reality based at this point. He continues to harbor fixed, systematized delusions, but is generally able to focus on reality based topics. -Although the patient tells me that he does not feel that aripiprazole has been effective, he is able to accept my opinion in the opinion of the staff that he has improved in response to aripiprazole. -The patient's main objection to aripiprazole oral solution is that he does not like the way it tastes, and within this context, he tells us that he is willing to accept Abilify Maintenaand requests that it be injected into his buttock. Abilify Maintena 300 mg IM ordered, and oral Abilify discontinued. We will resume oral Abilify if the patient subsequently changes his mind and refuses the injection. 03/07 resuming abilfiy oral given his refusal of FARAH form of abilify 03/08 is taking abilify po form but refusing abilify maintena form. advise close monitoring for potential of checking given pt's tendency to not want to take medications. 03/09 -The patient is flatly refusing to take aripiprazole in the form of Abilify Maintena. He is also been hesitant to take oral Abilify, but has been doing so. -The patient's lack of cooperation is thought possibly to be related to an un-expressed desire to not be discharged back to the community. He told me today that he left his meeting with his community providers after a few seconds because "just the side of them made me extremely anxious. My pulse elevated to 140." Later, he told me that he was still anxious about it and his pulse was "still around 130." The patient allowed me to take his pulse, and it was approximately 76. At that point he said, "did I say pulse? I meant systolic blood pressure." And when I pointed out that his systolic blood pressure of 130 is not considered to be a particular concern, he said "I mean diastolic." -Our hope had been that the patient would agree to accept a Depo form of medication. He was refusing Haldol Decanoate because of various side effects. Risperidone constant was ruled out as a first-line Depo medication because of the frequency of administration (the patient tends to get into power struggles over medications) and because he says that he is sensitive to "big needles." Invega would be an option, but currently the patient is being so uncooperative that our concern would be that he would cheek the oral tablets that we would have to give him first. Accordingly, the new strategy will be to discontinue Abilify, and resume olanzapine with olanzapine IM over objection if necessary. We will begin the olanzapine Zydis 20 mg at bedtime 03/10 -The patient took the prescribed dose of olanzapine Zydis 20 mg at bedtime last night. Today, he tells me that it "did not help at all." However, staff report that he has been somewhat more agreeable, more pleasant, and less paranoid today. -As he has with other providers, today he told me that I should have given him olanzapine 5 mg "to start", and I explained that he was already on olanzapine 20 mg when he came into the hospital and we know that he is able to tolerate that dose. He tells me that he did, in fact tolerate the dose and is not aware of any side effects, but, somewhat illogically, insisted that the dose was "too high for a starting dose." 03/11 - Continue current medication regimen at this time - olanzapine 20mg daily - Encourage participation in the milieu and in group programming as tolerated 03/12 -Continue current medication regimen. The patient's condition has not yet improved. -The patient does participate in select groups, but often tends to be disruptive. 03/13 -Today, the patient seems to be somewhat more cooperative and less frankly delusional. It was possible to engage in a mostly reality based conversation for 5 or 10 minutes at a time. Also, although he was unhappy with me when I refused to provide him with a dose of Valium for anxiety, he was able to remain pleasant and calm at this time, did not storm from the room." 03/14 and 03/15 -no change in medication will work on therapeutic alliance given patient is not participating 03/16 -304 involuntary commitment granted. -Patient remains completely uncooperative with treatment, refused his Zyprexa Zydis last evening, but then ultimately took it before he received the injection. I have a high suspicion for cheeking of antipsychotic medication, and we will continue to be vigilant with mouth checks, and work towards a long- acting injectable. 03/17 -Patient has been on Zyprexa 20 mg at bedtime for 1 week, with limited response. He is refusing to discuss other medication options. Per records, he has been prescribed up to 30 mg olanzapine in the past, so will increase his dose to this previously tolerated dose, as it is 1 of the few medications he has been willing to take. Continue IM backup for refusal, and Zyprexa Zydis formu lation to decrease risk of cheeking. He is not compliant with mouth checks, but have asked staff to try to observe him for 10 minutes after taking the Zydis to ensure he is not spitting it out before it dissolves. 03/18 -Continue Zyprexa Zydis 30 mg at bedtime with IM backup. Consider switch to a different medication (?oral paliperidone with IM backup) if irritability and agitation continues. He has tried virtually every atypical antipsychotic and reports none of them were effective (although some trials were short due to nonadherence) and has a history of dystonia on haloperidol. Clozapine would be a reasonable choice, but he has been unwilling to even discuss medication options. -Consider some component of cognitive decline which could be contributing to his worsening presentation and will need to be monitored and worked up further once he is more psychiatrically stable. -Refer to [facility] in the event that he does not improve and long-term inpatient treatment is needed. 03/19 - Proceed with [facility] referral. 03/20 - Continue current medication regimen; patient refused EKG and CXR yesterday - refused again today - Continue attempts to gather information to make a referral to [facility] 03/23 - Proceed with [facility] referral - patient has refused EKG and CXR for multiple attempts. We will send most recent tests available - Continue current medication regimen at this time 03/24 -Attempted to hold diversion meeting with his outpatient [facility], alf director, and the [facility]; patient refused to attend or participate in the meeting. 03/25 - 03/26 - Continue treatment plan as above - no change in patient's condition and he remains unwilling to participate meaningfully in treatment - Continue with [facility] referral 03/27 -The patient has been informed that the plan at this point is to transfer him to [facility] for long-term inpatient psychiatric treatment, given his refusal to adhere with treatment and his associated behaviors in the community when not adherent with psychiatric treatment. -The patient continues to refuse mouth checks after given dosages of Zyprexa Zydis, and there is some question regarding whether he is actually ingesting this medication. He also would not cooperate with laboratory testing. -There has been a question regarding the patient's cognitive functions, and prior to admission he had been taking Aricept. When he does cooperate with this, I have not seen evidence of any substantial cognitive impairment. He may have mild cognitive impairment, but does not fully cooperate with formal cognitive assessment. He easily recalls the names of his providers, the names of the medications he is taking, the names of the various infectious agents that he believes are causing some of his psychiatric symptoms, the names of certain chemicals that he believes will rid him of the reference to infections, and is able to discuss current events such as recent news items. His assertion that he wants to return to his apartment in the community seems belied by his steadfast refusal to cooperate with those interventions I would make it possible for him to return, and there is some suspicion that although the patient remains floridly psychotic he may also be intentionally sabotaging discharge. 03/28 - 03/30 -There is been no change control specialist the past 2 weeks, and long-term inpatient treatment at the [facility] is indicated. (2) Substance abuse: 02/25 - Pt has reported history of substance abuse, and recommendation has consistently been for avoidance of substances with significant abuse potential. - PDMP queried - most recent prescriptions below - lorazepam 0.5mg #60 tabs for 30 day supply - Dr. Alves - filled 02/12/2019 - alprazolam 0.5mg #90 tabs for 30 day supply - Dr. Lopez - filled 01/16/2019 - temazepam 30mg #30 caps for 30 day supply - Dr. Lopez - filled 01/16/2019 - Will continue lorazepam 0.5mg BID prn on admission, as only medication that is seemingly active - toxicology screen is negative for benzodiazepines, which questions if he has been taking the medication appropriately - Ideally will taper and discontinue the lorazepam, as recommendation remains that substances with abuse potential be avoided 02/26 -The patient's outpatient providers, during a meeting this morning, report that the patient tends to successfully convince physicians to prescribe benzodiazepines for him and that, in the past, he has abused him to the degree that he is practically obtunded. 02/27 -A repeat check of the PDMP reveals that the patient is consistently being prescribed lorazepam 0.5 mg twice daily (number 60/month) by a Dr. Brent Alves. He is also being prescribed alprazolam 0.[address] mg [address] Jeff Lopez, with the most recent previous prescription of alprazolam being on 01/16/[address] Lopez also prescribed temazepam 30 mg capsules #30 on 01/16/2019. According to his residential providers, no temazepam capsules were found among the patient's belongings. His most recent prescription for lorazepam 0.5 mg tablets was filled on 02/12/2019. 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 In the past, he reportedly has used clonazepam and temazepam. -I advised the patient that because of his history of misuse of benzodiazepines we would not be prescribing benzodiazepines during his hospital stay. An as needed order for lorazepam has not been used during hospital stay, and I discontinued the order today. 03/02 - Will need to coordinate care with his PCP and outpatient psychiatrist prior to discharge regarding the above. 03/04 - Charge nurse spoke with the above offices regarding concern for continued benzodiazepine prescriptions - Records will be faxed to their offices on discharge, as all benzodiazepines were discontinued during this hospitalization 03/06 -The patient did not request benzodiazepines and did not complain of anxiety today. I suggested to him that perhaps Abilify is also helping with anxiety in his case, and he responded by saying "perhaps." 03/09 -Today, the patient is insisting that what he needs is "benzodiazepines," and explains that the reason he "needs" benzodiazepines is that he has "benzodiazepine receptors," and that he is the only medications that work. He is unable to process warnings about the risks of benzodiazepines in the elderly, including increased risk of falls and mortality. Clearly, the patient is seeking benzodiazepines and has no insight into the associated risks. He also insists that he has never had trouble with benzodiazepines in the past, although there is well-documented of this. 03/10 -Today, the patient repeated his insistence that he needs benzodiazepines and that benzodiazepines are the only medications that work because he has "benzodiazepine receptors." After being told that everyone has central nervous system receptors to which benzodiazepines may attach, he replied, "That may be, but some of people need to have benzodiazepines forearm benzodiazepine receptors. 03/12 -Continues to request Benzodiazepines. 03/13 -Requests Valium for his "benzodiazepines receptors." 03/27 -Refuses to cooperate with assessment today, but has recently told staff that he needs "either Valium or Ativan." -The patient apparently has no working insight into his history of abuse of prescription medications (benzodiazepines). (3) Hypertension: 02/25 - Continue home dose of clonidine 0.1mg qHS 03/01 Watch mildly elevated blood pressures as patient has been refusing clonidine 03/03 - BP normal past two days, and low today 03/10 -The patient's blood pressure today was 136/73. His pulse was 71 03/14 - elevated BP it is not urgent but will need monitored. 03/15 - BP WNL 03/26 - BP continues to be WNL Inventory Assets Strengths: -Intelligence. Support of community providers. Well educated. Needs: Resume symptom-stabilizing medication regimen, coordinate care with alf Risk Factors Assessment Male: Yes : Yes Do You Have Access To A Gun?: No Health Problems: Yes Mental Health Diagnoses: Yes Substance Use Disorders: Yes Protective Factors Assessment [place] Beliefs: No : No Responsible for Young Children: No Employed: No Stable Relationships: No Supportive Family: No Good Rapport with Provider: No Interval History Identifying Information SCOTT ROBERTO is a 73-year-old M who currently lives at a [facility] in [place]. Pt has a history of schizophrenia and is known to our unit from several previous admissions, most recently in 09/2016. Pt and was admitted on 02/24/19 16:40 on a 302 involuntary commitment for exacerbation of schizophrenia and heightened paranoia resulting in belief he needed to hide in a dumpster to seek refuge from impending bombings. Pt was found by [facility] staff and brought to the ED by police. He is on a 304 involuntary commitment as of 03/16/19. Chief Complaint "Not one word." Review of Systems Notes Patient is unable to participate in reliable review of systems due to refusal and severity of his condition; he did not verbalize any acute concerns when asked. Sleep Information Total Hours of Sleep: 7.25 Sleep Comments: awake at 0430 snack and bathroom. Meal Information Percent Meal Consumed - Breakfast: 100 Percent Meal Consumed - Lunch: 100 Percent Meal Consumed - Dinner: 100 Nutrition Comment: per meal record Subjective Subjective Patient was seen & assessed and interval progress reviewed with treatment team. Staff report the patient has shown little progress over the weekend, continuing to refuse most interactions with staff. Patient was observed today resting in his bed in no apparent distress. This provider attempted to speak with the patient, who stated, "not one word" - implying he would not be engaging in conversation with this provider. This provider again informed the patient that we needed to be able to discuss treatment with him in order to make plans for placement and discharge. He did not his head when this provider asked him to confirm his meeting tomorrow with staff from his alf, but refused to discuss any further. This provider asked if there was another way the patient would be willing to communicate, as he has consistently been unwilling to discuss verbally. This provider offered to type up questions, and he states, "you could write them and I'll take a look at them." When this provider attempted to confirm that patient would indeed answer the questions as opposed to simply 'looking at them', the patient responded "just do it." This provider typed a list of questions and printed them out to provide to the patient. (i.e. questions regarding current presence of SI/HI and hallucinations, questions regarding patient's willingness to take medications and follow-up with outpatient appointments, and questions regarding if he is donovan nning to attend his meeting tomorrow and what topics he'd like to discuss). Pt inquires "what causes schizophrenia?" This provider began explaining that it is a complex psychiatric disorder without one clear cause, he then cuts this provider off and says, "I'll tell you right now." He hands this provider a paper which says, "T. Grandii - Schizophrenii - paracite" and states that he needs medical testing for the presence of this parasite, "which is the cause of schizophrenia, Google it." Physical Exam Psychiatric Orientation: alert; + uncooperative Apperance: appropriately dressed and appeared stated age Eye Contact: + fair eye contact (improved direct eye contact today) Motor Behavior: steady gait and station and no abnormal motor movements Speech: normal rate/rhythm/volume of speech (mildly irritable tone, spontaneous but still refusing productive interview) Affect: + irritable affect Insight: + severely impaired insight Judgement: + severely impaired judgement Vital Signs (Past 24 Hours) Last Vital Signs Temp 36.6 C 03/30/19 06:37 Pulse 69 03/30/19 06:39 Resp 16 03/30/19 06:37 BP 109/72 03/30/19 06:39 Pulse Ox 96 02/24/19 08:10 Results & Data Current Inpatient Medications Current Inpatient Medications: Current Inpatient Medications Acetaminophen (Tylenol) 650 mg PO Q4H PRN PRN Reason: Headache or Minor Fever Stop: 04/24/19 08:39 Al Hydrox/Mg Hydrox/Simethicone (Maalox) 30 ml PO Q4H PRN PRN Reason: GI Upset Stop: 04/24/19 08:39 Benztropine Mesylate (Cogentin) 0.5 mg PO BID PRN PRN Reason: dystonia Stop: 04/24/19 08:39 Bismuth Subsalicylate (Kaopectate) 15 ml PO PRN PRN PRN Reason: Loose Stool Stop: 04/24/19 08:39 Clonidine HCl (Catapres) 0.1 mg PO HS MAG Stop: 04/24/19 21:59 Last Admin: 03/29/19 20:55 Dose: 0.1 mg Documented by: Cyanocobalamin (Vitamin B-12) 500 mcg PO DAILY MAG Stop: 04/24/19 08:59 Last Admin: 03/29/19 08:28 Dose: 500 mcg Documented by: Hydroxyzine HCl (Vistaril) 50 mg PO HSZ PRN PRN Reason: Insomnia Stop: 04/24/19 08:44 Hydroxyzine HCl (Vistaril) 25 mg PO Q4H PRN PRN Reason: Anxiety Stop: 04/24/19 08:44 Magnesium Citrate (Citrate) 148 ml PO BID PRN PRN Reason: constipation Stop: 04/22/19 20:59 Last Admin: 03/23/19 17:19 Dose: 148 ml Documented by: Magnesium Hydroxide (Milk Of Magnesia) 30 ml PO DAILY PRN PRN Reason: Heartburn Stop: 04/24/19 08:44 Magnesium Oxide (Mag-Ox) 400 mg PO DAILY MAG Stop: 04/24/19 08:59 Last Admin: 03/29/19 08:28 Dose: 400 mg Documented by: Miscellaneous (Remove Nicoderm Patch) 1 ea N/A HS [facility] Stop: 04/24/19 21:59 Last Admin: 03/29/19 20:59 Dose: Not Given Documented by: Multivitamins (Multivitamin Tab) 1 tab PO DAILY MAG Stop: 04/24/19 08:59 Last Admin: 03/29/19 08:28 Dose: 1 tab Documented by: Nicotine (Nicoderm Cq) 14 mg TD QAM [facility] Stop: 04/24/19 08:59 Last Admin: 03/29/19 08:29 Dose: Not Given Documented by: Olanzapine (Zyprexa) 10 mg IM HS PRN PRN Reason: Undecided Stop: 04/24/19 08:44 Olanzapine (Zyprexa Zydis Od) 30 mg PO HS MAG Stop: 04/24/19 21:59 Last Admin: 03/29/19 20:55 Dose: 30 mg Documented by: Pyridoxine HCl (Vitamin B-6) 100 mg PO DAILY [facility] Stop: 04/24/19 08:59 Last Admin: 03/29/19 08:28 Dose: 100 mg Documented by: Risperidone (Risperdal M) 1 mg PO BID PRN PRN Reason: psychosis Stop: 04/24/19 08:44 Sodium Chloride ([place] Nasal) 1 - 2 sprays NA PRN PRN PRN Reason: Nasal Dryness/Congestion Stop: 04/24/19 08:44 Mental Health & Subst Abuse Tx Therapist Name of Therapist: Sammy [facility] Name of [facility]: Shruti Lopez Phone Number for [facility]: Case Management Appointment Comment: [phone], [place] [address] Post Discharge Appointments Primary Care Physician Name Of Family Doctor: Dr. Lopez Contact Information Discharge Discharge Address: [address] [place] [address], [place] [address] CPT Code CPT Code 69550 (1) Schizophrenia Schizophrenia type: paranoid schizophrenia Qualified Code(s): F20.0 - Paranoid schizophrenia (2) Hypertension Hypertension type: essential hypertension Qualified Code(s): I10 - Essential (primary) hypertension
[2019-03-30] MEDS: MULTIVITAMIN TAB PO SCH (09:18)
[2019-03-30] MEDS: MAGNESIUM OXIDE 400 MG TAB PO SCH (09:18)
[2019-03-30] MEDS: CYANOCOBALAMIN 500 MCG TABLET (VITAMIN B-12) PO SCH (09:19)
[2019-03-30] MEDS: PYRIDOXINE HCL 50 MG TAB PO SCH (09:19)
[2019-03-30] MEDS: NICOTINE 14 MG/24 HR PATCH TD SCH (09:19)
[2019-03-30] MEDS: OLANZAPINE ZYDIS 10 MG ORALLY DIS. TAB PO SCH (21:25)
[2019-03-30] MEDS: cloNIDine HCL 0.1 MG TAB PO SCH (21:25)
[2019-03-31] MEDS: MAGNESIUM OXIDE 400 MG TAB PO SCH (07:41)
[2019-03-31] MEDS: MULTIVITAMIN TAB PO SCH (07:41)
[2019-03-31] MEDS: PYRIDOXINE HCL 50 MG TAB PO SCH (07:42)
[2019-03-31] MEDS: NICOTINE 14 MG/24 HR PATCH TD SCH (07:42)
[2019-03-31] MEDS: CYANOCOBALAMIN 500 MCG TABLET (VITAMIN B-12) PO SCH (07:42)
--- NOTE | 2019-03-31 13:11 | Psychiatric Progress Note ---
Date of Service March 31, 2019 Impression / Recommendations Impression 73-year-old male with schizophrenia who lives at the [facility] and was admitted involuntarily on 02/24/2019 with delusions, hallucinations, irritability and erratic behavior after rapid decompensation 1-2 weeks after he stopped taking his antipsychotic. He was found in a dumpster, floridly delusional, and was combative with [facility] staff. He refused resumption of olanzapine, but ultimately agreed to take aripiprazole. It initially appeared that he was responding favorably, although not completely, to the addition of aripiprazole. Because of the patient's long history of dangerous behaviors in the community associated with nonadherence with psychiatric medications, the a depo antipsychotic medication was recommended, and he initially agreed to Madie Aleman; however, refused it when staff attempted to administer the injection (03/13/2019), and subsequently became much more oppositional and hostile towards staff, refusing to speak with a psychiatrist or other [facility] staff since that time. He returned to [facility] Felician[facility], which he reports he is compliant with despite often refusing mouth checks. He refused to participate in a diversion meeting with his [facility] director and outpatient housing case manager on 03/24/19, but attended and participated in a second follow-up meeting on 03/31/2019. He briefly verbalized willingness for an FARAH, but was unwilling to proceed with oral medication adjustments at time of discussion. He has a clear history of dangerous behaviors during periods of nonadherence with medications in the community, and inpatient psychiatric hospitalization remains the least i ntensive, least restrictive level of care consistent with the patient's clinical and safety needs. He was referred to [facility] 03/23/2019. (1) Schizophrenia: 02/25 - Continue home medication regimen - as refusing offerings of his antipsychotic, will likely require olanzapine IM (or alternative agent) over objection, given clear evidence of paranoia and delusional thought process - previously stabilized on this medication - Pt agreeable to taking all other medications, with exception of antipsychotic as mentioned above - Admitted to a locked inpatient behavioral health unit, on q15 minute safety checks - Encourage medication initiation/adjustments as indicated - Encourage participation in group and recreational therapies - Gather collateral information from outpatient providers and chcf staff - Suggest family meeting to involve outpatient supports in safety planning - Reschedule appropriate aftercare appointments 02/26 -Patient indicates willingness to sign a release for the [facility], will get collateral from their staff. -File for 303 involuntary commitment to be held tomorrow. -Recommend medications over objection, with an IM Zyprexa backup for refusal of oral medication. Involve outpatient treatment team to discuss ways to improve stability and compliance; consider long-acting injectable antipsychotic. -Order fasting labs for monitoring on an atypical antipsychotic once patient is more cooperative. 02/27 -The patient was retrained at his involuntary commitment hearing (303) this morning. -He has continuously and consistently refused psychiatric medications to date. However, today, when I explained that that a option that might become necessary in his case is medication over objection, and an intramuscular form, the patient said that he understood and that he would try medications that I prescribe. His initial preference would be olanzapine, but because olanzapine is not available in a long acting depot form, we would first like to try aripiprazole. He indicates that he is taken aripiprazole in the past and has been able to tolerate it, although he does not believe that it has been particularly helpful. -A trial dose of aripiprazole 15 mg by mouth, as a one-time dose, has been ordered and he assessed for efficacy. 02/28 -Appears to be tolerating initiation of Abilify so far. Remains delusional, paranoid. May consider further titration tomorrow -Aricept discontinued at patient's request on 02/27/2019. The medication has not been demonstrated to be efficacious for cognitive impairment associated with long-standing schizophrenia however we should be vigilant for slowing of mentation following discontinuation. 03/01 Patient fixated and irrational regarding access to clothing item as above today. Hospital environment becoming incorporated and delusions. Consider possibility that the aripiprazole is contributing to activation. We will increase to 20 mg tomorrow and also start Risperdal 1 mg p.o. twice daily as as needed. 03/02 - Continue with aripiprazole at 20mg daily, consider need for further titration - if tolerating and effective, eventual plan will be for conversion to Abilify Maintena - Pt has not yet utilized risperidone 03/03 - Increase aripiprazole to 25mg (equivalent to 30mg pill) and change to liquid formulation to decrease risk of cheeking/nonadherence, as patient does not believe he needs medication and had been noncompliant prior to hospitalization. - Fasting glucose and lipid profile ordered for tomorrow for monitoring on an atypical antipsychotic. - Private room due to psychosis, agitation, and inappropriate disrobing/sexual behavior. - Meeting with [facility] and [facility] staff when patient able to tolerate. 03/04 - Continue aripiprazole 25mg liquid (30mg pill equivalent) and continue to observe for improvement in thought process/content - consider conversion to Maintena if effective, versus trial of another agent if improvement remains limited - Fasting labs reviewed - all values WNL - Continue medically necessary private room - Request meeting with [facility] staff, in order to obtain details about patient's proximity to baseline 03/05 -Patient refusing liquid aripiprazole, but agrees to take the pill: Ordered 30 mg daily. -Schedule meeting with his housing case manager, [facility] and psych rehab staff. Consider involuntary outpatient commitment at the time of discharge. 03/06 -The patient has improved in that he is more reality based at this point. He continues to harbor fixed, systematized delusions, but is generally able to focus on reality based topics. -Although the patient tells me that he does not feel that aripiprazole has been effective, he is able to accept my opinion in the opinion of the staff that he has improved in response to aripiprazole. -The patient's main objection to aripiprazole oral solution is that he does not like the way it tastes, and within this context, he tells us that he is willing to accept Abilify Maintenaand requests that it be injected into his buttock. Abilify Maintena 300 mg IM ordered, and oral Abilify discontinued. We will resume oral Abilify if the patient subsequently changes his mind and refuses the injection. 03/07 resuming abilfiy oral given his refusal of FARAH form of abilify 03/08 is taking abilify po form but refusing abilify maintena form. advise close monitoring for potential of checking given pt's tendency to not want to take medications. 03/09 -The patient is flatly refusing to take aripiprazole in the form of Abilify Maintena. He is also been hesitant to take oral Abilify, but has been doing so. -The patient's lack of cooperation is thought possibly to be related to an un-expressed desire to not be discharged back to the community. He told me today that he left his meeting with his community providers after a few seconds because "just the side of them made me extremely anxious. My pulse elevated to 140." Later, he told me that he was still anxious about it and his pulse was "still around 130." The patient allowed me to take his pulse, and it was approximately 76. At that point he said, "did I say pulse? I meant systolic blood pressure." And when I pointed out that his systolic blood pressure of 130 is not considered to be a particular concern, he said "I mean diastolic." -Our hope had been that the patient would agree to accept a Depo form of medication. He was refusing Haldol Decanoate because of various side effects. Risperidone constant was ruled out as a first-line Depo medication because of the frequency of administration (the patient tends to get into power struggles over medications) and because he says that he is sensitive to "big needles." Invega would be an option, but currently the patient is being so uncooperative that our concern would be that he would cheek the oral tablets that we would have to give him first. Accordingly, the new strategy will be to discontinue Abilify, and resume olanzapine with olanzapine IM over objection if necessary. We will begin the olanzapine Zydis 20 mg at bedtime 03/10 -The patient took the prescribed dose of olanzapine Zydis 20 mg at bedtime last night. Today, he tells me that it "did not help at all." However, staff report that he has been somewhat more agreeable, more pleasant, and less paranoid today. -As he has with other providers, today he told me that I should have given him olanzapine 5 mg "to start", and I explained that he was already on olanzapine 20 mg when he came into the hospital and we know that he is able to tolerate that dose. He tells me that he did, in fact tolerate the dose and is not aware of any side effects, but, somewhat illogically, insisted that the dose was "too high for a starting dose." 03/11 - Continue current medication regimen at this time - olanzapine 20mg daily - Encourage participation in the milieu and in group programming as tolerated 03/12 -Continue current medication regimen. The patient's condition has not yet improved. -The patient does participate in select groups, but often tends to be disruptive. 03/13 -Today, the patient seems to be somewhat more cooperative and less frankly d elusional. It was possible to engage in a mostly reality based conversation for 5 or 10 minutes at a time. Also, although he was unhappy with me when I refused to provide him with a dose of Valium for anxiety, he was able to remain pleasant and calm at this time, did not storm from the room." 03/14 and 03/15 -no change in medication will work on therapeutic alliance given patient is not participating 03/16 -304 involuntary commitment granted. -Patient remains completely uncooperative with treatment, refused his Zyprexa Zydis last evening, but then ultimately took it before he received the i njection. I have a high suspicion for cheeking of antipsychotic medication, and we will continue to be vigilant with mouth checks, and work towards a long- acting injectable. 03/17 -Patient has been on Zyprexa 20 mg at bedtime for 1 week, with limited response. He is refusing to discuss other medication options. Per records, he has been prescribed up to 30 mg olanzapine in the past, so will increase his dose to this previously tolerated dose, as it is 1 of the few medications he has been willing to take. Continue IM backup for refusal, and Zyprexa Zydis formulation to decrease risk of cheeking. He is not compliant with mouth checks, but have asked staff to try to observe him for 10 minutes after taking the Zydis to ensure he is not spitting it out before it dissolves. 03/18 -Continue Zyprexa Zydis 30 mg at bedtime with IM backup. Consider switch to a different medication (?oral paliperidone with IM backup) if irritability and agitation continues. He has tried virtually every atypical antipsychotic and reports none of them were effective (although some trials were short due to nonadherence) and has a history of dystonia on haloperidol. Clozapine would be a reasonable choice, but he has been unwilling to even discuss medication options. -Consider some component of cognitive decline which could be contributing to his worsening presentation and will need to be monitored and worked up further once he is more psychiatrically stable. -Refer to [facility] in the event that he does not improve and long-term inpatient treatment is needed. 03/19 - Proceed with [facility] referral. 03/20 - Continue current medication regimen; patient refused EKG and CXR yesterday - refused again today - Continue attempts to gather information to make a referral to [facility] 03/23 - Proceed with [facility] referral - patient has refused EKG and CXR for multiple attempts. We will send most recent tests available - Continue current medication regimen at this time 03/24 -Attempted to hold diversion meeting with his outpatient [facility], [facility] director, and the formerly [facility] MH/ID; patient refused to attend or participate in the meeting. 03/25 - 03/26 - Continue treatment plan as above - no change in patient's condition and he remains unwilling to participate meaningfully in treatment - Continue with [place] referral 03/27 -The patient has been informed that the plan at this point is to transfer him to [facility] for long-term inpatient psychiatric treatment, given his refusal to adhere with treatment and his associated behaviors in the community when not adherent with psychiatric treatment. -The patient continues to refuse mouth checks after given dosages of Zyprexa Zydis, and there is some question regarding whether he is actually ingesting this medication. He also would not cooperate with laboratory testing. -There has been a question regarding the patient's cognitive functions, and prior to admission he had been taking Aricept. When he does cooperate with this, I have not seen evidence of any substantial cognitive impairment. He may have mild cognitive impairment, but does not fully cooperate with formal cognitive assessment. He easily recalls the names of his providers, the names of the medications he is taking, the names of the various infectious agents that he believes are causing some of his psychiatric symptoms, the names of certain chemicals that he believes will rid him of the reference to infections, and is able to discuss current events such as recent news items. His assertion that he wants to return to his apartment in the community seems belied by his steadfast refusal to cooperate with those interventions I would make it possible for him to return, and there is some suspicion that although the patient remains floridly psychotic he may also be intentionally sabotaging discharge. 03/28 - 03/30 -There is been no supervisor records change the past 2 weeks, and long-term inpatient treatment at the [facility] is indicated. 03/31 - Continue current medication regimen - Pt briefly verbalized willingness for FARAH, but was not agreeable to medication adjustments to allow for this to be possible - If he should change his mind; recommendation is for trial of Invega orally to establish tolerability, then consideration for Invega Sustenna - unwilling for this today (2) Substance abuse: 02/25 - Pt has reported history of substance abuse, and recommendation has consistently been for avoidance of substances with significant abuse potential. - PDMP queried - most recent prescriptions below - lorazepam 0.5mg #60 tabs for 30 day supply - Dr. Alves - filled 02/12/2019 - alprazolam 0.5mg #90 tabs for 30 day supply - Dr. Lopez - filled 01/16/2019 - temazepam 30mg #30 caps for 30 day supply - Dr. Lopez - filled 01/16/2019 - Will continue lorazepam 0.5mg BID prn on admission, as only medication that is seemingly active - toxicology screen is negative for benzodiazepines, which questions if he has been taking the medication appropriately - Ideally will taper and discontinue the lorazepam, as recommendation remains that substances with abuse potential be avoided 02/26 -The patient's outpatient providers, during a meeting this morning, report that the patient tends to successfully convince physicians to prescribe benzodiazepines for him and that, in the past, he has abused him to the degree that he is practically obtunded. 02/27 -A repeat check of the PDMP reveals that the patient is consistently being prescribed lorazepam 0.5 mg twice daily (number 60/month) by a Dr. Brent Alves. He is also being prescribed alprazolam 0.[address] mg [address] Jeff Lopez, with the most recent previous prescription of alprazolam being on 01/16/[address] Lopez also prescribed temazepam 30 mg capsules #30 on 01/16/2019. According to his residential providers, no temazepam capsules were found among the patient's belongings. His most recent prescription for lorazepam 0.5 mg tablets was filled on 02/12/2019. 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 In the past, he reportedly has used clonazepam and temazepam. -I advised the patient that because of his history of misuse of benzodiazepines we would not be prescribing benzodiazepines during his hospital stay. An as needed order for lorazepam has not been used during hospital stay, and I discontinued the order today. 03/02 - Will need to coordinate care with his PCP and outpatient psychiatrist prior to discharge regarding the above. 03/04 - Charge nurse spoke with the above offices regarding concern for continued benzodiazepine prescriptions - Records will be faxed to their offices on discharge, as all benzodiazepines were discontinued during this hospitalization 03/06 -The patient did not request benzodiazepines and did not complain of anxiety today. I suggested to him that perhaps Abilify is also helping with anxiety in his case, and he responded by saying "perhaps." 03/09 -Today, the patient is insisting that what he needs is "benzodiazepines," and explains that the reason he "needs" benzodiazepines is that he has "benzodiazepine receptors," and that he is the only medications that work. He is unable to process warnings about the risks of benzodiazepines in the elderly, including increased risk of falls and mortality. Clearly, the patient is seeking benzodiazepines and has no insight into the associated risks. He also insists that he has never had trouble with benzodiazepines in the past, although there is well-documented of this. 03/10 -Today, the patient repeated his insistence that he needs benzodiazepines and that benzodiazepines are the only medications that work because he has "benzodiazepine receptors." After being told that everyone has central nervous system receptors to which benzodiazepines may attach, he replied, "That may be, but some of people need to have benzodiazepines forearm benzodiazepine receptors. 03/12 -Continues to request Benzodiazepines. 03/13 -Requests Valium for his "benzodiazepines receptors." 03/27 -Refuses to cooperate with assessment today, but has recently told staff that he needs "either Valium or Ativan." -The patient apparently has no working insight into his history of abuse of prescription medications (benzodiazepines). (3) Hypertension: 02/25 - Continue home dose of clonidine 0.1mg qHS 03/01 Watch mildly elevated blood pressures as patient has been refusing clonidine 03/03 - BP normal past two days, and low today 03/10 -The patient's blood pressure today was 136/73. His pulse was 71 03/14 - elevated BP it is not urgent but will need monitored. 03/15 - BP WNL 03/26 - BP continues to be WNL Inventory Assets Strengths: -Intelligence. Support of community providers. Well educated. Needs: Resume symptom-stabilizing medication regimen, coordinate care with [facility] Risk Factors Assessment Male: Yes : Yes Do You Have Access To A Gun?: No Health Problems: Yes Mental Health Diagnoses: Yes Substance Use Disorders: Yes Protective Factors Assessment Taoist Beliefs: No : No Responsible for Young Children: No Employed: No Stable Relationships: No Supportive Family: No Good Rapport with Provider: No Interval History Identifying Information SCOTT ROBERTO is a 73-year-old M who currently lives at a [facility] in [place]. Pt has a history of schizophrenia and is known to our unit from several previous admissions, most recently in 09/2016. Pt and was admitted on 02/24/19 16:40 on a 302 involuntary commitment for exacerbation of schizophrenia and heightened paranoia resulting in belief he needed to hide in a dumpster to seek refuge from impending bombings. Pt was found by [facility] staff and brought to the ED by police. He is on a 304 involuntary commitment as of 03/16/19. Chief Complaint "The [facility] told me I have one more week. They want me here another week." Review of Systems Notes Constitutional: denied Cardiovascular: denied Respiratory: denied Gastrointestinal: denied Neurological: denied Psychiatric: denies symptoms other than stated above Total of at least 10 systems reviewed, pertinent positives as above and in HPI. Sleep Information Total Hours of Sleep: 7 Sleep Comments: awake once for a snack (cereal) Meal Information Percent Meal Consumed - Breakfast: 100 Percent Meal Consumed - Lunch: 100 Percent Meal Consumed - Dinner: 100 Nutrition Comment: per meal record Subjective Subjective Patient was seen & assessed and interval progress reviewed with nursing and social work. Staff report the patient has a meeting today with staff/representatives from his [facility]. Otherwise, he continues to demonstrate little change in his presentation. Pt was seen today to assess progress since admission. Prior to this interaction, the patient had verbalized willingness for "an injection" if it were ordered today. As his this would continue to be our recommendation for medication administration, this provider attempted to follow-up with the patient on the topic. Surprisingly, the patient spoke with this provider without reservation today - having not spoken to a psychiatric prescriber to any productive length in several weeks. Pt stated that he attended his meeting this morning, and was informed that ongoing inpatient treatment was recommended - but that if he was agreeable to appropriate services, his bed at the [facility] would be reserved. Despite previous reports of willingness for an injectable form of his antipsychotic medication, he is now unwilling for this - stating "I've been compliant with my medications." Pt was informed that while this may be the current situation, this was not the case prior to his admission - though he denies this. Pt states - they only told me that because they [the [facility]] want an out for themselves." He was unable to clearly explain this comment, but implied monetary motivation. Pt was again informed of reasoning for the [facility] staff's requests - and was reminded of his condition prior to admission. As follow-up to his now refusal of injectable medications - he states, "I'll take it if you force me." Pt was informed that we did not desire to force depot medication, as it requires him to be willing to follow-up with injections on an outpatient basis, which he indicates he is not presently. Pt states, "I've always been compliant." He demands "Zyprexa 20mg". We briefly and vaguely reviewed possible FARAH options for his consideration. Pt then shares his belief that "my schizophrenia is cyclical, like a bipolar disorder. I believe I have bipolar disorder." He was informed medication considerations are indicated for both diagnoses. He then requests testing for toxoplasmosis - as he continues to believe he had cured himself of the parasite causing schizophrenia prior to his admission. Patient was thanked for his willingness to have a conversation with this provider, and was encouraged to continue discussions with prescribers in order to better assess whether discharge to his [facility] is appropriate. Physical Exam Psychiatric Orientation: alert, oriented to person, oriented to place and cooperative (superficially; more cooperative today than he has been in weeks) Apperance: appropriately dressed, appropriately groomed and appeared stated age Eye Contact: good eye contact Motor Behavior: no abnormal motor movements (observed while laying on bed) Speech: normal rate/rhythm/volume of speech (mildly irritable tone) Affect: + flat affect and + irritable affect (at times during interaction) Mood: no depressed mood and no anxious mood "I'm fine, being here any longer is a waste of time" Thought Process: goal directed thought process (goal is for discharge to [facility]), + perseveration and + concrete thought process Thought Content: + preoccupation (with toxoplasmosis), + paranoid and + delusions Suicidal Thoughts: denies suicidal thoughts Homicidal Thoughts: denies homicidal thoughts Cognition: attention grossly intact and language grossly intact Estimated Intelligence: consistent with education level Insight: + impaired insight Judgement: + impaired judgement Vital Signs (Past 24 Hours) Last Vital Signs Temp 36.6 C 03/31/19 06:00 Pulse 68 03/31/19 06:34 Resp 15 03/31/19 06:00 BP 127/71 03/31/19 06:34 Pulse Ox 96 02/24/19 08:10 Results & Data Current Inpatient Medications Current Inpatient Medications: Current Inpatient Medications Acetaminophen (Tylenol) 650 mg PO Q4H PRN PRN Reason: Headache or Minor Fever Stop: 04/24/19 08:39 Al Hydrox/Mg Hydrox/Simethicone (Maalox) 30 ml PO Q4H PRN PRN Reason: GI Upset Stop: 04/24/19 08:39 Benztropine Mesylate (Cogentin) 0.5 mg PO BID PRN PRN Reason: dystonia Stop: 04/24/19 08:39 Bismuth Subsalicylate (Kaopectate) 15 ml PO PRN PRN PRN Reason: Loose Stool Stop: 04/24/19 08:39 Clonidine HCl (Catapres) 0.1 mg PO HS MAG Stop: 04/24/19 21:59 Last Admin: 03/30/19 21:25 Dose: 0.1 mg Documented by: Cyanocobalamin (Vitamin B-12) 500 mcg PO DAILY MAG Stop: 04/24/19 08:59 Last Admin: 03/31/19 07:42 Dose: 500 mcg Documented by: Hydroxyzine HCl (Vistaril) 50 mg PO HSZ PRN PRN Reason: Insomnia Stop: 04/24/19 08:44 Hydroxyzine HCl (Vistaril) 25 mg PO Q4H PRN PRN Reason: Anxiety Stop: 04/24/19 08:44 Magnesium Citrate (Citrate) 148 ml PO BID PRN PRN Reason: constipation Stop: 04/22/19 20:59 Last Admin: 03/23/19 17:19 Dose: 148 ml Documented by: Magnesium Hydroxide (Milk Of Magnesia) 30 ml PO DAILY PRN PRN Reason: Heartburn Stop: 04/24/19 08:44 Magnesium Oxide (Mag-Ox) 400 mg PO DAILY MAG Stop: 04/24/19 08:59 Last Admin: 03/31/19 07:41 Dose: 400 mg Documented by: Miscellaneous (Remove Nicoderm Patch) 1 ea N/A HS MAG Stop: 04/24/19 21:59 Last Admin: 03/30/19 21:25 Dose: Not Given Documented by: Multivitamins (Multivitamin Tab) 1 tab PO DAILY MAG Stop: 04/24/19 08:59 Last Admin: 03/31/19 07:41 Dose: 1 tab Documented by: Nicotine (Nicoderm Cq) 14 mg TD QAM MAG Stop: 04/24/19 08:59 Last Admin: 03/31/19 07:42 Dose: Not Given Documented by: Olanzapine (Zyprexa) 10 mg IM HS PRN PRN Reason: Undecided Stop: 04/24/19 08:44 Olanzapine (Zyprexa Zydis Od) 30 mg PO HS MAG Stop: 04/24/19 21:59 Last Admin: 03/30/19 21:25 Dose: 30 mg Documented by: Pyridoxine HCl (Vitamin B-6) 100 mg PO DAILY MAG Stop: 04/24/19 08:59 Last Admin: 03/31/19 07:42 Dose: 100 mg Documented by: Risperidone (Risperdal M) 1 mg PO BID PRN PRN Reason: psychosis Stop: 04/24/19 08:44 Sodium Chloride ([place] Nasal) 1 - 2 sprays NA PRN PRN PRN Reason: Nasal Dryness/Congestion Stop: 04/24/19 08:44 Mental Health & Subst Abuse Tx Therapist Name of Therapist: [facility] Chemist Name of Laboratory Chemist: Shruti Lopez Phone Number for Laboratory Chemist: Case Management Appointment Comment: [phone], [place] [address] Post Discharge Appointments Primary Care Physician Name Of Family Doctor: Dr. Lopez Contact Information Discharge Discharge Address: [address] [place] [address], [place] [address] CPT Code CPT Code 74129 (1) Schizophrenia Schizophrenia type: paranoid schizophrenia Qualified Code(s): F20.0 - Paranoid schizophrenia (2) Hypertension Hypertension type: essential hypertension Qualified Code(s): I10 - Essential (primary) hypertension
[2019-03-31] MEDS: cloNIDine HCL 0.1 MG TAB PO SCH (21:33)
[2019-03-31] MEDS: OLANZAPINE ZYDIS 10 MG ORALLY DIS. TAB PO SCH (21:33)
[2019-04-01] MEDS: MULTIVITAMIN TAB PO SCH (08:28)
[2019-04-01] MEDS: CYANOCOBALAMIN 500 MCG TABLET (VITAMIN B-12) PO SCH (08:28)
[2019-04-01] MEDS: MAGNESIUM OXIDE 400 MG TAB PO SCH (08:28)
[2019-04-01] MEDS: PYRIDOXINE HCL 50 MG TAB PO SCH (08:28)
[2019-04-01] MEDS: NICOTINE 14 MG/24 HR PATCH TD SCH (08:28)
--- NOTE | 2019-04-01 15:25 | Psychiatric Progress Note ---
Date of Service April 01, 2019 Impression / Recommendations Impression 73-year-old male with schizophrenia who lives at the [facility] and was admitted involuntarily on 02/24/2019 with delusions, hallucinations, irritability and erratic behavior after rapid decompensation 1-2 weeks after he stopped taking his antipsychotic. He was found in a dumpster, floridly delusional, and was combative with [facility] staff. He refused resumption of olanzapine, but ultimately agreed to take aripiprazole. It initially appeared that he was responding favorably, although not completely, to the addition of aripiprazole. Because of the patient's long history of dangerous behaviors in the community associated with nonadherence with psychiatric medications, the a depo antipsychotic medication was recommended, and he initially agreed to Madie Aleman; however, refused it when staff attempted to administer the injection (03/13/2019), and subsequently became much more oppositional and hostile towards staff, refusing to speak with a psychiatrist or other [facility] staff since that time. He returned to [facility], which he reports he is compliant with despite often refusing mouth checks. He refused to participate in a diversion meeting with his long term director and outpatient case loader operator on 03/24/19, but attended and participated in a second follow-up meeting on 03/31/2019. He briefly verbalized willingness for an FARAH, but was unwilling to proceed with subsequent oral medication adjustments to make this conversion possible. He has a clear history of dangerous behaviors during periods of nonadherence with medications in the community, and inpatient psychiatric hospitalization remains the least intensive, least restrictive level of care consistent with the patient's clinical and safety needs. He was referred to [facility] 03/23/2019. (1) Schizophrenia: 02/25 - Continue home medication regimen - as refusing offerings of his antipsychotic, will likely require olanzapine IM (or alternative agent) over objection, given clear evidence of paranoia and delusional thought process - previously stabilized on this medication - Pt agreeable to taking all other medications, with exception of antipsychotic as mentioned above - Admitted to a locked inpatient behavioral health unit, on q15 minute safety checks - Encourage medication initiation/adjustments as indicated - Encourage participation in group and recreational therapies - Gather collateral information from outpatient providers and long term staff - Suggest family meeting to involve outpatient supports in safety planning - Reschedule appropriate aftercare appointments 02/26 -Patient indicates willingness to sign a release for the [facility] long term, will get collateral from their staff. -File for 303 involuntary commitment to be held tomorrow. -Recommend medications over objection, with an IM Zyprexa backup for refusal of oral medication. Involve outpatient treatment team to discuss ways to improve stability and compliance; consider long-acting injectable antipsychotic. -Order fasting labs for monitoring on an atypical antipsychotic once patient is more cooperative. 02/27 -The patient was retrained at his involuntary commitment hearing (303) this morning. -He has continuously and consistently refused psychiatric medications to date. However, today, when I explained that that a option that might become necessary in his case is medication over objection, and an intramuscular form, the patient said that he understood and that he would try medications that I prescribe. His initial preference would be olanzapine, but because olanzapine is not available in a long acting depot form, we would first like to try aripiprazole. He indicates that he is taken aripiprazole in the past and has been able to tolerate it, although he does not believe that it has been particularly helpful. -A trial dose of aripiprazole 15 mg by mouth, as a one-time dose, has been ordered and he assessed for efficacy. 02/28 -Appears to be tolerating initiation of Abilify so far. Remains delusional, paranoid. May consider further titration tomorrow -Aricept discontinued at patient's request on 02/27/2019. The medication has not been demonstrated to be efficacious for cognitive impairment associated with long-standing schizophrenia however we should be vigilant for slowing of mentation following discontinuation. 03/01 Patient fixated and irrational regarding access to clothing item as above today. Hospital environment becoming incorporated and delusions. Consider possibility that the aripiprazole is contributing to activation. We will increase to 20 mg tomorrow and also start Risperdal 1 mg p.o. twice daily as as needed. 03/02 - Continue with aripiprazole at 20mg daily, consider need for further titration - if tolerating and effective, eventual plan will be for conversion to Abilify Maintena - Pt has not yet utilized risperidone 03/03 - Increase aripiprazole to 25mg (equivalent to 30mg pill) and change to liquid formulation to decrease risk of cheeking/nonadherence, as patient does not believe he needs medication and had been noncompliant prior to hospitalization. - Fasting glucose and lipid profile ordered for tomorrow for monitoring on an atypical antipsychotic. - Private room due to psychosis, agitation, and inappropriate disrobing/sexual behavior. - Meeting with [facility] and [facility] staff when patient able to tolerate. 03/04 - Continue aripiprazole 25mg liquid (30mg pill equivalent) and continue to observe for improvement in thought process/content - consider conversion to Maintena if effective, versus trial of another agent if improvement remains limited - Fasting labs reviewed - all values WNL - Continue medically necessary private room - Request meeting with [facility] staff, in order to obtain details about patient's proximity to baseline 03/05 -Patient refusing liquid aripiprazole, but agrees to take the pill: Ordered 30 mg daily. -Schedule meeting with his case loader operator, CRR and psych rehab staff. Consider involuntary outpatient commitment at the time of discharge. 03/06 -The patient has improved in that he is more reality based at this point. He continues to harbor fixed, systematized delusions, but is generally able to focus on reality based topics. -Although the patient tells me that he does not feel that aripiprazole has been effective, he is able to accept my opinion in the opinion of the staff that he has improved in response to aripiprazole. -The patient's main objection to aripiprazole oral solution is that he does not like the way it tastes, and within this context, he tells us that he is willing to accept Abilify Maintenaand requests that it be injected into his buttock. Abilify Maintena 300 mg IM ordered, and oral Abilify discontinued. We will resume oral Abilify if the patient subsequently changes his mind and refuses the injection. 03/07 resuming abilfiy oral given his refusal of FARAH form of abilify 03/08 is taking abilify po form but refusing abilify maintena form. advise close monitoring for potential of checking given pt's tendency to not want to take medications. 03/09 -The patient is flatly refusing to take aripiprazole in the form of Abilify Maintena. He is also been hesitant to take oral Abilify, but has been doing so. -The patient's lack of cooperation is thought possibly to be related to an un-expressed desire to not be discharged back to the community. He told me today that he left his meeting with his community providers after a few seconds because "just the side of them made me extremely anxious. My pulse elevated to 140." Later, he told me that he was still anxious about it and his pulse was "still around 130." The patient allowed me to take his pulse, and it was approximately 76. At that point he said, "did I say pulse? I meant systolic blood pressure." And when I pointed out that his systolic blood pressure of 130 is not considered to be a particular concern, he said "I mean diastolic." -Our hope had been that the patient would agree to accept a Depo form of medication. He was refusing Haldol Decanoate because of various side effects. Risperidone constant was ruled out as a first-line Depo medication because of the frequency of administration (the patient tends to get into power struggles over medications) and because he says that he is sensitive to "big needles." Invega would be an option, but currently the patient is being so uncooperative that our concern would be that he would cheek the oral tablets that we would have to give him first. Accordingly, the new strategy will be to discontinue Abilify, and resume olanzapine with olanzapine IM over objection if necessary. We will begin the olanzapine Zydis 20 mg at bedtime 03/10 -The patient took the prescribed dose of olanzapine Zydis 20 mg at bedtime last night. Today, he tells me that it "did not help at all." However, staff report that he has been somewhat more agreeable, more pleasant, and less paranoid today. -As he has with other providers, today he told me that I should have given him olanzapine 5 mg "to start", and I explained that he was already on olanzapine 20 mg when he came into the hospital and we know that he is able to tolerate that dose. He tells me that he did, in fact tolerate the dose and is not aware of any side effects, but, somewhat illogically, insisted that the dose was "too high for a starting dose." 03/11 - Continue current medication regimen at this time - olanzapine 20mg daily - Encourage participation in the milieu and in group programming as tolerated 03/12 -Continue current medication regimen. The patient's condition has not yet improved. -The patient does participate in select groups, but often tends to be disruptive. 03/13 -Today, the patient seems to be somewhat more cooperative and less frankly delusional. It was possible to engage in a mostly reality based conversation for 5 or 10 minutes at a time. Also, although he was unhappy with me when I refused to provide him with a dose of Valium for anxiety, he was able to remain pleasant and calm at this time, did not storm from the room." 03/14 and 03/15 -no change in medication will work on therapeutic alliance given patient is not participating 03/16 -304 involuntary commitment granted. -Patient remains completely uncooperative with treatment, refused his Zyprexa Zydis last evening, but then ultimately took it before he received the injection. I have a high suspicion for cheeking of antipsychotic medication, and we will continue to be vigilant with mouth checks, and work towards a long- acting injectable. 03/17 -Patient has been on Zyprexa 20 mg at bedtime for 1 week, with limited response. He is refusing to discuss other medication options. Per records, he has been prescribed up to 30 mg olanzapine in the past, so will increase his dose to this previously tolerated dose, as it is 1 of the few medications he has been willing to take. Continue IM backup for refusal, and Zyprexa Zydis formulation to decrease risk of cheeking. He is not compliant with mouth checks, but have asked staff to try to observe him for 10 minutes after taking the Zydis to ensure he is not spitting it out before it dissolves. 03/18 -Continue Zyprexa Zydis 30 mg at bedtime with IM backup. Consider switch to a different medication (?oral paliperidone with IM backup) if irritability and agitation continues. He has tried virtually every atypical antipsychotic and reports none of them were effective (although some trials were short due to nonadherence) and has a history of dystonia on haloperidol. Clozapine would be a reasonable choice, but he has been unwilling to even discuss medication options. -Consider some component of cognitive decline which could be contributing to his worsening presentation and will need to be monitored and worked up further once he is more psychiatrically stable. -Refer to [facility] in the event that he does not improve and long-term inpatient treatment is needed. 03/19 - Proceed with [facility] referral. 03/20 - Continue current medication regimen; patient refused EKG and CXR yesterday - refused again today - Continue attempts to gather information to make a referral to [facility] 03/23 - Proceed with [facility] referral - patient has refused EKG and CXR for multiple attempts. We will send most recent tests available - Continue current medication regimen at this time 03/24 -Attempted to hold diversion meeting with his outpatient [facility], long term director, and the [facility] MH/ID; patient refused to attend or participate in the meeting. 03/25 - 03/26 - Continue treatment plan as above - no change in patient's condition and he remains unwilling to participate meaningfully in treatment - Continue with [facility] referral 03/27 -The patient has been informed that the plan at this point is to transfer him to [facility] for long-term inpatient psychiatric treatment, given his refusal to adhere with treatment and his associated behaviors in the community when not adherent with psychiatric treatment. -The patient continues to refuse mouth checks after given dosages of Zyprexa Zydis, and there is some question regarding whether he is actually ingesting this medication. He also would not cooperate with laboratory testing. -There has been a question regarding the patient's cognitive functions, and prior to admission he had been taking Aricept. When he does cooperate with this, I have not seen evidence of any substantial cognitive impairment. He may have mild cognitive impairment, but does not fully cooperate with formal cognitive assessment. He easily recalls the names of his providers, the names of the medications he is taking, the names of the various infectious agents that he believes are causing some of his psychiatric symptoms, the names of certain chemicals that he believes will rid him of the reference to infections, and is able to discuss current events such as recent news items. His assertion that he wants to return to his apartment in the community seems belied by his steadfast refusal to cooperate with those interventions I would make it possible for him to return, and there is some suspicion that although the patient remains floridly psychotic he may also be intentionally sabotaging discharge. 03/28 - 03/30 -There is been no change management the past 2 weeks, and long-term inpatient treatment at the [facility] is indicated. 8/13 - Continue current medication regimen - Pt briefly verbalized willingness for FARAH, but was not agreeable to medication adjustments to allow for this to be possible - If he should change his mind; recommendation is for trial of Invega orally to establish tolerability, then consideration for Invega Sustenna - unwilling for this today 04/01 - Continue current medication regimen - Continues to refuse FARAH, will continue discussion daily as this is the reported preference of his CRR (2) Substance abuse: 02/25 - Pt has reported history of substance abuse, and recommendation has consistently been for avoidance of substances with significant abuse potential. - PDMP queried - most recent prescriptions below - lorazepam 0.5mg #60 tabs for 30 day supply - Dr. Alves - filled 02/12/2019 - alprazolam 0.5mg #90 tabs for 30 day supply - Dr. Lopez - filled 01/16/2019 - temazepam 30mg #30 caps for 30 day supply - Dr. Lopez - filled 01/16/2019 - Will continue lorazepam 0.5mg BID prn on admission, as only medication that is seemingly active - toxicology screen is negative for benzodiazepines, which questions if he has been taking the medication appropriately - Ideally will taper and discontinue the lorazepam, as recommendation remains that substances with abuse potential be avoided 02/26 -The patient's outpatient providers, during a meeting this morning, report that the patient tends to successfully convince physicians to prescribe benzodiazepines for him and that, in the past, he has abused him to the degree that he is practically obtunded. 02/27 -A repeat check of the PDMP reveals that the patient is consistently being prescribed lorazepam 0.5 mg twice daily (number 60/month) by a Dr. Brent Alves. He is also being prescribed alprazolam 0.[address] mg [address] Jeff Lopez, with the most recent previous prescription of alprazolam being on 01/16/[address] Lopez also prescribed temazepam 30 mg capsules #30 on 01/16/2019. According to his residential providers, no temazepam capsules were found among the patient's belongings. His most recent prescription for lorazepam 0.5 mg tablets was filled on 02/12/2019. 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 In the past, he reportedly has used clonazepam and temazepam. -I advised the patient that because of his history of misuse of benzodiazepines we would not be prescribing benzodiazepines during his hospital stay. An as needed order for lorazepam has not been used during hospital stay, and I discontinued the order today. 03/02 - Will need to coordinate care with his PCP and outpatient psychiatrist pr ior to discharge regarding the above. 03/04 - Charge nurse spoke with the above offices regarding concern for continued benzodiazepine prescriptions - Records will be faxed to their offices on discharge, as all benzodiazepines were discontinued during this hospitalization 03/06 -The patient did not request benzodiazepines and did not complain of anxiety today. I suggested to him that perhaps Abilify is also helping with anxiety in his case, and he responded by saying "perhaps." 03/09 -Today, the patient is insisting that what he needs is "benzodiazepines," and explains that the reason he "needs" benzodiazepines is that he has "benzodiazepine receptors," and that he is the only medications that work. He is unable to process warnings about the risks of benzodiazepines in the elderly, including increased risk of falls and mortality. Clearly, the patient is seeking benzodiazepines and has no insight into the associated risks. He also insists that he has never had trouble with benzodiazepines in the past, although there is well-documented of this. 03/10 -Today, the patient repeated his insistence that he needs benzodiazepines and that benzodiazepines are the only medications that work because he has "benzodiazepine receptors." After being told that everyone has central nervous system receptors to which benzodiazepines may attach, he replied, "That may be, but some of people need to have benzodiazepines forearm benzodiazepine receptors. 03/12 -Continues to request Benzodiazepines. 03/13 -Requests Valium for his "benzodiazepines receptors." 03/27 -Refuses to cooperate with assessment today, but has recently told staff that he needs "either Valium or Ativan." -The patient apparently has no working insight into his history of abuse of prescription medications (benzodiazepines). (3) Hypertension: 02/25 - Continue home dose of clonidine 0.1mg qHS 03/01 Watch mildly elevated blood pressures as patient has been refusing clonidine 03/03 - BP normal past two days, and low today 03/10 -The patient's blood pressure today was 136/73. His pulse was 71 03/14 - elevated BP it is not urgent but will need monitored. 03/15 - BP WNL 03/26 - BP continues to be WNL Inventory Assets Strengths: -Intelligence. Support of community providers. Well educated. Needs: Resume symptom-stabilizing medication regimen, coordinate care with long term Risk Factors Assessment Male: Yes : Yes Do You Have Access To A Gun?: No Health Problems: Yes Mental Health Diagnoses: Yes Substance Use Disorders: Yes Protective Factors Assessment Amish Beliefs: No : No Responsible for Young Children: No Employed: No Stable Relationships: No Supportive Family: No Good Rapport with Provider: No Interval History Identifying Information SCOTT ROBERTO is a 73-year-old M who currently lives at a [facility] in [place]. Pt has a history of schizophrenia and is known to our unit from several previous admissions, most recently in 09/2016. Pt and was admitted on 02/24/19 16:40 on a 302 involuntary commitment for exacerbation of schizophrenia and heightened paranoia resulting in belief he needed to hide in a dumpster to seek refuge from impending bombings. Pt was found by [facility] staff and brought to the ED by police. He is on a 304 involuntary commitment as of 03/16/19. Chief Complaint "We can talk in my room. What do you need?" Review of Systems Notes Constitutional: denied Cardiovascular: denied Respiratory: denied Gastrointestinal: denied Neurological: denied Musculoskeletal: reports mild diffuse joint pain Psychiatric: denies symptoms other than stated above Total of at least 10 systems reviewed, pertinent positives as above and in HPI. Sleep Information Total Hours of Sleep: 8.75 Sleep Comments: awake once for a snack (cereal) Meal Information Percent Meal Consumed - Breakfast: 100 Percent Meal Consumed - Lunch: 100 Percent Meal Consumed - Dinner: 100 Nutrition Comment: per meal record Subjective Subjective Patient was seen & assessed and interval progress reviewed with treatment team. Staff reports patient has been showing some mild improvements, and is demonstrated some increased willingness to engage in treatment here on the unit. He continues to verbalize desire to return to a [facility] at discharge, but is unwilling for long-acting injectable form of his antipsychotic medications. Patient was seen today to assess progress since admission. Patient is agreeable to conversation and requests that we discuss in his room. Patient verbalizes frustration with his ongoing admission stating "games are going to fix me, I do not need bingo." This provider attempted to explain to the patient that his participation in recreational programming and group therapy demonstrates his appropriateness for discharge and ability to interact appropriately with his peers. Patient states "I do not need this I just want to go home." Patient continues to verbalize his desires to return to a [facility] as "that is my home, that's where all my stuff is." Patient was reminded again of the long term's recommendation that he be on a long-acting injectable, which of course is our recommendation for medications as well. Patient continues to refuse injections as "they really hurt." The patient states "I take my medications, they give them to us twice a day at 8:00 AM and 6:00 PM. I have been compliant." The patient verbalize to this provider ongoing willingness to continue to take his oral medications, as he is adamantly refusing long-acting injectable. Patient denies other acute needs or concerns at this time. Physical Exam Psychiatric Orientation: alert, oriented x 3, cooperative (Superficially) and + guarded Apperance: appropriately dressed, appropriately groomed and appeared stated age Eye Contact: good eye contact Motor Behavior: steady gait and station and no abnormal motor movements Speech: normal rate/rhythm/volume of speech Affect: + flat affect and + irritable affect (At times) Mood: no depressed mood and no anxious mood "I'm really frustrated, I'm fed up being here." Thought Process: + concrete thought process; + thought process not linear or logical Thought Content: + paranoid and + delusions (Ongoing delusions regarding because of his schizophrenia) Suicidal Thoughts: denies suicidal thoughts and denies suicidal intent Homicidal Thoughts: denies homicidal thoughts Cognition: attention grossly intact and language grossly intact Estimated Intelligence: consistent with education level Insight: + impaired insight Judgement: + impaired judgement Vital Signs (Past 24 Hours) Last Vital Signs Temp 36.8 C 04/01/19 06:00 Pulse 78 04/01/19 06:24 Resp 16 04/01/19 06:00 BP 103/68 04/01/19 06:24 Pulse Ox 96 02/24/19 08:10 Results & Data Current Inpatient Medications Current Inpatient Medications: Current Inpatient Medications Acetaminophen (Tylenol) 650 mg PO Q4H PRN PRN Reason: Headache or Minor Fever Stop: 04/24/19 08:39 Al Hydrox/Mg Hydrox/Simethicone (Maalox) 30 ml PO Q4H PRN PRN Reason: GI Upset Stop: 04/24/19 08:39 Benztropine Mesylate (Cogentin) 0.5 mg PO BID PRN PRN Reason: dystonia Stop: 04/24/19 08:39 Bismuth Subsalicylate (Kaopectate) 15 ml PO PRN PRN PRN Reason: Loose Stool Stop: 04/24/19 08:39 Clonidine HCl (Catapres) 0.1 mg PO HS MAG Stop: 04/24/19 21:59 Last Admin: 03/31/19 21:33 Dose: 0.1 mg Documented by: Cyanocobalamin (Vitamin B-12) 500 mcg PO DAILY MAG Stop: 04/24/19 08:59 Last Admin: 04/01/19 08:28 Dose: 500 mcg Documented by: Hydroxyzine HCl (Vistaril) 50 mg PO HSZ PRN PRN Reason: Insomnia Stop: 04/24/19 08:44 Hydroxyzine HCl (Vistaril) 25 mg PO Q4H PRN PRN Reason: Anxiety Stop: 04/24/19 08:44 Magnesium Citrate (Citrate) 148 ml PO BID PRN PRN Reason: constipation Stop: 04/22/19 20:59 Last Admin: 03/23/19 17:19 Dose: 148 ml Documented by: Magnesium Hydroxide (Milk Of Magnesia) 30 ml PO DAILY PRN PRN Reason: Heartburn Stop: 04/24/19 08:44 Magnesium Oxide (Mag-Ox) 400 mg PO DAILY MAG Stop: 04/24/19 08:59 Last Admin: 04/01/19 08:28 Dose: 400 mg Documented by: Miscellaneous (Remove Nicoderm Patch) 1 ea N/A HS [facility] Stop: 04/24/19 21:59 Last Admin: 03/31/19 21:33 Dose: Not Given Documented by: Multivitamins (Multivitamin Tab) 1 tab PO DAILY MAG Stop: 04/24/19 08:59 Last Admin: 04/01/19 08:28 Dose: 1 tab Documented by: Nicotine (Nicoderm Cq) 14 mg TD QAM MAG Stop: 04/24/19 08:59 Last Admin: 04/01/19 08:28 Dose: Not Given Documented by: Olanzapine (Zyprexa) 10 mg IM HS PRN PRN Reason: Undecided Stop: 04/24/19 08:44 Olanzapine (Zyprexa Zydis Od) 30 mg PO HS MAG Stop: 04/24/19 21:59 Last Admin: 03/31/19 21:33 Dose: 30 mg Documented by: Pyridoxine HCl (Vitamin B-6) 100 mg PO DAILY MAG Stop: 04/24/19 08:59 Last Admin: 04/01/19 08:28 Dose: 100 mg Documented by: Risperidone (Risperdal M) 1 mg PO BID PRN PRN Reason: psychosis Stop: 04/24/19 08:44 Sodium Chloride ([place] Nasal) 1 - 2 sprays NA PRN PRN PRN Reason: Nasal Dryness/Congestion Stop: 04/24/19 08:44 Mental Health & Subst Abuse Tx Therapist Name of Therapist: [facility] [employer] Name of [employer]: Shruti Lopez Phone Number for [employer]: Case Management Appointment Comment: [id number], [place] [address] Post Discharge Appointments Primary Care Physician Name Of Family Doctor: Dr. Lopez Contact Information Discharge Discharge Address: [address] [place] [address], [place] [address] CPT Code CPT Code 91390 (1) Schizophrenia Schizophrenia type: paranoid schizophrenia Qualified Code(s): F20.0 - Paranoid schizophrenia (2) Hypertension Hypertension type: essential hypertension Qualified Code(s): I10 - Essential (primary) hypertension
[2019-04-01] MEDS: OLANZAPINE ZYDIS 10 MG ORALLY DIS. TAB PO SCH (21:42)
[2019-04-01] MEDS: cloNIDine HCL 0.1 MG TAB PO SCH (21:42)
[2019-04-02] MEDS: PYRIDOXINE HCL 50 MG TAB PO SCH (07:43)
[2019-04-02] MEDS: CYANOCOBALAMIN 500 MCG TABLET (VITAMIN B-12) PO SCH (07:43)
[2019-04-02] MEDS: NICOTINE 14 MG/24 HR PATCH TD SCH (07:43)
[2019-04-02] MEDS: MAGNESIUM OXIDE 400 MG TAB PO SCH (07:43)
[2019-04-02] MEDS: MULTIVITAMIN TAB PO SCH (07:43)
--- NOTE | 2019-04-02 09:16 | Psychiatric Progress Note ---
Date of Service April 02, 2019 Impression / Recommendations Impression 73-year-old male with schizophrenia who lives at the [facility] and was admitted involuntarily on 02/24/2019 with delusions, hallucinations, irritability and erratic behavior after rapid decompensation 1-2 weeks after he stopped taking his antipsychotic. He was found in a dumpster, floridly delusional, and was combative with [facility] staff. He refused resumption of olanzapine, but ultimately agreed to take aripiprazole. It initially appeared that he was responding favorably, although not completely, to the addition of aripiprazole. Because of the patient's long history of dangerous behaviors in the community associated with nonadherence with psychiatric medications, the a depo antipsychotic medication was recommended, and he initially agreed to Madie Aleman; however, refused it when staff attempted to administer the injection (03/13/2019), and subsequently became much more oppositional and hostile towards staff, refusing to speak with a psychiatrist or other [facility] staff since that time. He returned to [facility], which he reports he is compliant with despite often refusing mouth checks. He refused to participate in a diversion meeting with his intermediate director and outpatient supportive employment case manager on 03/24/19, but attended and participated in a second follow-up meeting on 03/31/2019. He briefly verbalized willingness for an FARAH, but was unwilling to proceed with subsequent oral medication adjustments to make this conversion possible. He has a clear history of dangerous behaviors during periods of nonadherence with medications in the community, and inpatient psychiatric hospitalization remains the least intensive, least restrictive level of care consistent with the patient's clinical and safety needs. He was referred to [facility] 03/23/2019. (1) Schizophrenia: 02/25 - Continue home medication regimen - as refusing offerings of his antipsychotic, will likely require olanzapine IM (or alternative agent) over objection, given clear evidence of paranoia and delusional thought process - previously stabilized on this medication - Pt agreeable to taking all other medications, with exception of antipsychotic as mentioned above - Admitted to a locked inpatient behavioral health unit, on q15 minute safety checks - Encourage medication initiation/adjustments as indicated - Encourage participation in group and recreational therapies - Gather collateral information from outpatient providers and intermediate staff - Suggest family meeting to involve outpatient supports in safety planning - Reschedule appropriate aftercare appointments 02/26 -Patient indicates willingness to sign a release for the [facility] intermediate, will get collateral from their staff. -File for 303 involuntary commitment to be held tomorrow. -Recommend medications over objection, with an IM Zyprexa backup for refusal of oral medication. Involve outpatient treatment team to discuss ways to improve stability and compliance; consider long-acting injectable antipsychotic. -Order fasting labs for monitoring on an atypical antipsychotic once patient is more cooperative. 02/27 -The patient was retrained at his involuntary commitment hearing (303) this morning. -He has continuously and consistently refused psychiatric medications to date. However, today, when I explained that that a option that might become necessary in his case is medication over objection, and an intramuscular form, the patient said that he understood and that he would try medications that I prescribe. His initial preference would be olanzapine, but because olanzapine is not available in a long acting depot form, we would first like to try aripiprazole. He indicates that he is taken aripiprazole in the past and has been able to tolerate it, although he does not believe that it has been particularly helpful. -A trial dose of aripiprazole 15 mg by mouth, as a one-time dose, has been ordered and he assessed for efficacy. 02/28 -Appears to be tolerating initiation of Abilify so far. Remains delusional, paranoid. May consider further titration tomorrow -Aricept discontinued at patient's request on 02/27/2019. The medication has not been demonstrated to be efficacious for cognitive impairment associated with long-standing schizophrenia however we should be vigilant for slowing of mentation following discontinuation. 03/01 Patient fixated and irrational regarding access to clothing item as above today. Hospital environment becoming incorporated and delusions. Consider possibility that the aripiprazole is contributing to activation. We will increase to 20 mg tomorrow and also start Risperdal 1 mg p.o. twice daily as as needed. 03/02 - Continue with aripiprazole at 20mg daily, consider need for further titration - if tolerating and effective, eventual plan will be for conversion to Abilify Maintena - Pt has not yet utilized risperidone 03/03 - Increase aripiprazole to 25mg (equivalent to 30mg pill) and change to liquid formulation to decrease risk of cheeking/nonadherence, as patient does not believe he needs medication and had been noncompliant prior to hospitalization. - Fasting glucose and lipid profile ordered for tomorrow for monitoring on an atypical antipsychotic. - Private room due to psychosis, agitation, and inappropriate disrobing/sexual behavior. - Meeting with [facility] and [facility] staff when patient able to tolerate. 03/04 - Continue aripiprazole 25mg liquid (30mg pill equivalent) and continue to observe for improvement in thought process/content - consider conversion to Maintena if effective, versus trial of another agent if improvement remains limited - Fasting labs reviewed - all values WNL - Continue medically necessary private room - Request meeting with [facility] staff, in order to obtain details about patient's proximity to baseline 03/05 -Patient refusing liquid aripiprazole, but agrees to take the pill: Ordered 30 mg daily. -Schedule meeting with his supportive employment case manager, [facility] and psych rehab staff. Consider involuntary outpatient commitment at the time of discharge. 03/06 -The patient has improved in that he is more reality based at this point. He continues to harbor fixed, systematized delusions, but is generally able to focus on reality based topics. -Although the patient tells me that he does not feel that aripiprazole has been effective, he is able to accept my opinion in the opinion of the staff that he has improved in response to aripiprazole. -The patient's main objection to aripiprazole oral solution is that he does not like the way it tastes, and within this context, he tells us that he is willing to accept Abilify Maintenaand requests that it be injected into his buttock. Abilify Maintena 300 mg IM ordered, and oral Abilify discontinued. We will resume oral Abilify if the patient subsequently changes his mind and refuses the injection. 03/07 resuming abilfiy oral given his refusal of FARAH form of abilify 03/08 is taking abilify po form but refusing abilify maintena form. advise close monitoring for potential of checking given pt's tendency to not want to take medications. 03/09 -The patient is flatly refusing to take aripiprazole in the form of Abilify Maintena. He is also been hesitant to take oral Abilify, but has been doing so. -The patient's lack of cooperation is thought possibly to be related to an un-expressed desire to not be discharged back to the community. He told me today that he left his meeting with his community providers after a few seconds because "just the side of them made me extremely anxious. My pulse elevated to 140." Later, he told me that he was still anxious about it and his pulse was "still around 130." The patient allowed me to take his pulse, and it was approximately 76. At that point he said, "did I say pulse? I meant systolic blood pressure." And when I pointed out that his systolic blood pressure of 130 is not considered to be a particular concern, he said "I mean diastolic." -Our hope had been that the patient would agree to accept a Depo form of medication. He was refusing Haldol Decanoate because of various side effects. Risperidone constant was ruled out as a first-line Depo medication because of the frequency of administration (the patient tends to get into power struggles over medications) and because he says that he is sensitive to "big needles." Invega would be an option, but currently the patient is being so uncooperative that our concern would be that he would cheek the oral tablets that we would have to give him first. Accordingly, the new strategy will be to discontinue Abilify, and resume olanzapine with olanzapine IM over objection if necessary. We will begin the olanzapine Zydis 20 mg at bedtime 03/10 -The patient took the prescribed dose of olanzapine Zydis 20 mg at bedtime last night. Today, he tells me that it "did not help at all." However, staff report that he has been somewhat more agreeable, more pleasant, and less paranoid today. -As he has with other providers, today he told me that I should have given him olanzapine 5 mg "to start", and I explained that he was already on olanzapine 20 mg when he came into the hospital and we know that he is able to tolerate that dose. He tells me that he did, in fact tolerate the dose and is not aware of any side effects, but, somewhat illogically, insisted that the dose was "too high for a starting dose." 03/11 - Continue current medication regimen at this time - olanzapine 20mg daily - Encourage participation in the milieu and in group programming as tolerated 03/12 -Continue current medication regimen. The patient's condition has not yet improved. -The patient does participate in select groups, but often tends to be disruptive. 03/13 -Today, the patient seems to be somewhat more cooperative and less frankly delusional. It was possible to engage in a mostly reality based conversation for 5 or 10 minutes at a time. Also, although he was unhappy with me when I refused to provide him with a dose of Valium for anxiety, he was able to remain pleasant and calm at this time, did not storm from the room." 03/14 and 03/15 -no change in medication will work on therapeutic alliance given patient is not participating 03/16 -304 involuntary commitment granted. -Patient remains completely uncooperative with treatment, refused his Zyprexa Zydis last evening, but then ultimately took it before he received the injection. I have a high suspicion for cheeking of antipsychotic medication, and we will continue to be vigilant with mouth checks, and work towards a long- acting injectable. 03/17 -Patient has been on Zyprexa 20 mg at bedtime for 1 week, with limited response. He is refusing to discuss other medication options. Per records, he has been prescribed up to 30 mg olanzapine in the past, so will increase his dose to this previously tolerated dose, as it is 1 of the few medications he has been willing to take. Continue IM backup for refusal, and Zyprexa Zydis formulation to decrease risk of cheeking. He is not compliant with mouth checks, but have asked staff to try to observe him for 10 minutes after taking the Zydis to ensure he is not spitting it out before it dissolves. 03/18 -Continue Zyprexa Zydis 30 mg at bedtime with IM backup. Consider switch to a different medication (?oral paliperidone with IM backup) if irritability and agitation continues. He has tried virtually every atypical antipsychotic and reports none of them were effective (although some trials were short due to nonadherence) and has a history of dystonia on haloperidol. Clozapine would be a reasonable choice, but he has been unwilling to even discuss medication options. -Consider some component of cognitive decline which could be contributing to his worsening presentation and will need to be monitored and worked up further once he is more psychiatrically stable. -Refer to [facility] in the event that he does not improve and long-term inpatient treatment is needed. 03/19 - Proceed with [facility] referral. 03/20 - Continue current medication regimen; patient refused EKG and CXR yesterday - refused again today - Continue attempts to gather information to make a referral to [facility] 03/23 - Proceed with [facility] referral - patient has refused EKG and CXR for multiple attempts. We will send most recent tests available - Continue current medication regimen at this time 03/24 -Attempted to hold diversion meeting with his outpatient [facility], intermediate director, and the [facility]; patient refused to attend or participate in the meeting. 03/25 - 03/26 - Continue treatment plan as above - no change in patient's condition and he remains unwilling to participate meaningfully in treatment - Continue with [facility] referral 03/27 -The patient has been informed that the plan at this point is to transfer him to [facility] for long-term inpatient psychiatric treatment, given his refusal to adhere with treatment and his associated behaviors in the community when not adherent with psychiatric treatment. -The patient continues to refuse mouth checks after given dosages of Zyprexa Zydis, and there is some question regarding whether he is actually ingesting this medication. He also would not cooperate with laboratory testing. -There has been a question regarding the patient's cognitive functions, and prior to admission he had been taking Aricept. When he does cooperate with this, I have not seen evidence of any substantial cognitive impairment. He may have mild cognitive impairment, but does not fully cooperate with formal cognitive assessment. He easily recalls the names of his providers, the names of the medications he is taking, the names of the various infectious agents that he believes are causing some of his psychiatric symptoms, the names of certain chemicals that he believes will rid him of the reference to infections, and is able to discuss current events such as recent news items. His assertion that he wants to return to his apartment in the community seems belied by his steadfast refusal to cooperate with those interventions I would make it possible for him to return, and there is some suspicion that although the patient remains floridly psychotic he may also be intentionally sabotaging discharge. 03/28 - 03/30 -There is been no plant changer the past 2 weeks, and long-term inpatient treatment at the [facility] is indicated. 8/13 - Continue current medication regimen - Pt briefly verbalized willingness for FARAH, but was not agreeable to medication adjustments to allow for this to be possible - If he should change his mind; recommendation is for trial of Invega orally to establish tolerability, then consideration for Invega Sustenna - unwilling for this today 04/01 - 04/02 - Continue current medication regimen - Continues to refuse FARAH, will continue discussion daily as this is the reported preference of his CRR (2) Substance abuse: 02/25 - Pt has reported history of substance abuse, and recommendation has consistently been for avoidance of substances with significant abuse potential. - PDMP queried - most recent prescriptions below - lorazepam 0.5mg #60 tabs for 30 day supply - Dr. Alves - filled 02/12/2019 - alprazolam 0.5mg #90 tabs for 30 day supply - Dr. Lopez - filled 01/16/2019 - temazepam 30mg #30 caps for 30 day supply - Dr. Lopez - filled 01/16/2019 - Will continue lorazepam 0.5mg BID prn on admission, as only medication that is seemingly active - toxicology screen is negative for benzodiazepines, which questions if he has been taking the medication appropriately - Ideally will taper and discontinue the lorazepam, as recommendation remains that substances with abuse potential be avoided 02/26 -The patient's outpatient providers, during a meeting this morning, report that the patient tends to successfully convince physicians to prescribe benzodiazepines for him and that, in the past, he has abused him to the degree that he is practically obtunded. 02/27 -A repeat check of the PDMP reveals that the patient is consistently being prescribed lorazepam 0.5 mg twice daily (number 60/month) by a Dr. April Alves. He is also being prescribed alprazolam 0.[address] mg [address] Jeff Lopez, with the most recent previous prescription of alprazolam being on 01/16/[address] Lopez also prescribed temazepam 30 mg capsules #30 on 01/16/2019. According to his residential providers, no temazepam capsules were found among the patient's belongings. His most recent prescription for lorazepam 0.5 mg tablets was filled on 02/12/2019. 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 In the past, he reportedly has used clonazepam and temazepam. -I advised the patient that because of his history of misuse of benzodiazepines we would not be prescribing benzodiazepines during his hospital stay. An as needed order for lorazepam has not been used during hospital stay, and I discontinued the order today. 03/02 - Will need to coordinate care with his PCP and outpatient psychiatrist prior to discharge regarding the above. 03/04 - Charge nurse spoke with the above offices regarding concern for continued benzodiazepine prescriptions - Records will be faxed to their offices on discharge, as all benzodiazepines were discontinued during this hospitalization 03/06 -The patient did not request benzodiazepines and did not complain of anxiety today. I suggested to him that perhaps Abilify is also helping with anxiety in his case, and he responded by saying "perhaps." 03/09 -Today, the patient is insisting that what he needs is "benzodiazepines," and explains that the reason he "needs" benzodiazepines is that he has "benzodiazepine receptors," and that he is the only medications that work. He is unable to process warnings about the risks of benzodiazepines in the elderly, including increased risk of falls and mortality. Clearly, the patient is seeking benzodiazepines and has no insight into the associated risks. He also insists that he has never had trouble with benzodiazepines in the past, although there is well-documented of this. 03/10 -Today, the patient repeated his insistence that he needs benzodiazepines and that benzodiazepines are the only medications that work because he has "benzodiazepine receptors." After being told that everyone has central nervous system receptors to which benzodiazepines may attach, he replied, "That may be, but some of people need to have benzodiazepines forearm benzodiazepine receptors. 03/12 -Continues to request Benzodiazepines. 03/13 -Requests Valium for his "benzodiazepines receptors." 03/27 -Refuses to cooperate with assessment today, but has recently told staff that he needs "either Valium or Ativan." -The patient apparently has no working insight into his history of abuse of prescription medications (benzodiazepines). (3) Hypertension: 02/25 - Continue home dose of clonidine 0.1mg qHS 03/01 Watch mildly elevated blood pressures as patient has been refusing clonidine 03/03 - BP normal past two days, and low today 03/10 -The patient's blood pressure today was 136/73. His pulse was 71 03/14 - elevated BP it is not urgent but will need monitored. 03/15 - BP WNL 8/8 - BP continues to be WNL 04/02 - BP remains within normal limits; continue daily vitals per standard admission orders - Will consider acute phase of this problem resolved at this time Inventory Assets Strengths: -Intelligence. Support of community providers. Well educated. Needs: Resume symptom-stabilizing medication regimen, coordinate care with intermediate Risk Factors Assessment Male: Yes : Yes Do You Have Access To A Gun?: No Health Problems: Yes Mental Health Diagnoses: Yes Substance Use Disorders: Yes Protective Factors Assessment Roman Catholic Beliefs: No : No Responsible for Young Children: No Employed: No Stable Relationships: No Supportive Family: No Good Rapport with Provider: No Interval History Identifying Information SCOTT ROBERTO is a 73-year-old M who currently lives at a [facility] in [place]. Pt has a history of schizophrenia and is known to our unit from several previous admissions, most recently in 09/2016. Pt and was admitted on 02/24/19 16:40 on a 302 involuntary commitment for exacerbation of schizophrenia and heightened paranoia resulting in belief he needed to hide in a dumpster to seek refuge from impending bombings. Pt was found by [facility] staff and brought to the ED by police. He is on a 304 involuntary commitment as of 03/16/19. Chief Complaint "You need to read me my Marnie Rights." Review of Systems Notes Patient unwilling to have conversation with this provider, therefore ROS could not be discussed. He did not report any complaints. Sleep Information Total Hours of Sleep: 7.25 Sleep Comments: awake once for a snack (cereal) Meal Information Percent Meal Consumed - Breakfast: 100 Percent Meal Consumed - Lunch: 100 Percent Meal Consumed - Dinner: 100 Nutrition Comment: per meal record Subjective Subjective Patient was seen & assessed and interval progress reviewed with nursing and social work. Staff reports the patient has been attending groups, but has not been participating. He did sign ROIs in accordance with [facility] staff recommendations, but continues to refuse an FARAH which they are also requesting. Patient was seen today to assess progress since admission. He states, "you need to read me my Marnie Rights." This provider asked why this was the case, and he stated, "you need to give me my warning." Pt was informed that he is not under arrest, and that he is not a criminal. This provider said she was not authorized to read these rights and that she didn't feel they were necessary for him. This provider asked if this request was due to "legal job titles", which he had blamed for these statements before. He responded by stating, "not...one...word." Pt did mention to this provider yesterday, that he was told if he does not speak, then his words cannot be used to give him a schizophrenia diagnosis, so we can't say he is a mental health patient. He was told that this can also be detrimental to his treatment, as if he does not speak, we cannot adequately assess his readiness for discharge. It appears patient has resorted to exercising his right to remain silent today, and the conversation was ended. Physical Exam Psychiatric Orientation: alert, oriented to person and + guarded; + uncooperative Apperance: appropriately dressed and appeared stated age Eye Contact: + fair eye contact (brief periods of direct eye contact; otherwise staring at wall) Motor Behavior: no abnormal motor movements (observed while laying upright in bed) Speech: normal rate/rhythm/volume of speech Affect: + irritable affect Patient unwilling to have productive conversation, therefore did not report mood today Cognition: attention grossly intact and language grossly intact Estimated Intelligence: consistent with education level Insight: + severely impaired insight Judgement: + severely impaired judgement Vital Signs (Past 24 Hours) Last Vital Signs Temp 36.6 C 04/02/19 06:00 Pulse 79 04/02/19 06:36 Resp 17 04/02/19 06:00 BP 133/82 04/02/19 06:36 Pulse Ox 96 02/24/19 08:10 Results & Data Current Inpatient Medications Current Inpatient Medications: Current Inpatient Medications Acetaminophen (Tylenol) 650 mg PO Q4H PRN PRN Reason: Headache or Minor Fever Stop: 04/24/19 08:39 Al Hydrox/Mg Hydrox/Simethicone (Maalox) 30 ml PO Q4H PRN PRN Reason: GI Upset Stop: 04/24/19 08:39 Benztropine Mesylate (Cogentin) 0.5 mg PO BID PRN PRN Reason: dystonia Stop: 04/24/19 08:39 Bismuth Subsalicylate (Kaopectate) 15 ml PO PRN PRN PRN Reason: Loose Stool Stop: 04/24/19 08:39 Clonidine HCl (Catapres) 0.1 mg PO HS MAG Stop: 04/24/19 21:59 Last Admin: 04/01/19 21:42 Dose: 0.1 mg Documented by: Cyanocobalamin (Vitamin B-12) 500 mcg PO DAILY [facility] Stop: 04/24/19 08:59 Last Admin: 04/02/19 07:43 Dose: 500 mcg Documented by: Hydroxyzine HCl (Vistaril) 50 mg PO HSZ PRN PRN Reason: Insomnia Stop: 04/24/19 08:44 Hydroxyzine HCl (Vistaril) 25 mg PO Q4H PRN PRN Reason: Anxiety Stop: 04/24/19 08:44 Magnesium Citrate (Citrate) 148 ml PO BID PRN PRN Reason: constipation Stop: 04/22/19 20:59 Last Admin: 03/23/19 17:19 Dose: 148 ml Documented by: Magnesium Hydroxide (Milk Of Magnesia) 30 ml PO DAILY PRN PRN Reason: Heartburn Stop: 04/24/19 08:44 Magnesium Oxide (Mag-Ox) 400 mg PO DAILY [facility] Stop: 04/24/19 08:59 Last Admin: 04/02/19 07:43 Dose: 400 mg Documented by: Miscellaneous (Remove Nicoderm Patch) 1 ea N/A HS [facility] Stop: 04/24/19 21:59 Last Admin: 04/01/19 21:45 Dose: Not Given Documented by: Multivitamins (Multivitamin Tab) 1 tab PO DAILY [facility] Stop: 04/24/19 08:59 Last Admin: 04/02/19 07:43 Dose: 1 tab Documented by: Nicotine (Nicoderm Cq) 14 mg TD QAM [facility] Stop: 04/24/19 08:59 Last Admin: 04/02/19 07:43 Dose: Not Given Documented by: Olanzapine (Zyprexa) 10 mg IM HS PRN PRN Reason: Undecided Stop: 04/24/19 08:44 Olanzapine (Zyprexa Zydis Od) 30 mg PO HS [facility] Stop: 04/24/19 21:59 Last Admin: 04/01/19 21:42 Dose: 30 mg Documented by: Pyridoxine HCl (Vitamin B-6) 100 mg PO DAILY [facility] Stop: 04/24/19 08:59 Last Admin: 04/02/19 07:43 Dose: 100 mg Documented by: Risperidone (Risperdal M) 1 mg PO BID PRN PRN Reason: psychosis Stop: 04/24/19 08:44 Sodium Chloride ([place] Nasal) 1 - 2 sprays NA PRN PRN PRN Reason: Nasal Dryness/Congestion Stop: 04/24/19 08:44 Mental Health & Subst Abuse Tx Therapist Name of Therapist: Denies Stone Decorator Name of Stone Decorator: Shruti Lopez Phone Number for Stone Decorator: Case Management Appointment Comment: [phone], [place] [address] Post Discharge Appointments Primary Care Physician Name Of Family Doctor: Dr. Lopez Contact Information Discharge Discharge Address: [address] [place] [id number] CPT Code CPT Code 69518 (1) Schizophrenia Schizophrenia type: paranoid schizophrenia Qualified Code(s): F20.0 - Paranoid schizophrenia (2) Hypertension Hypertension type: essential hypertension Qualified Code(s): I10 - Essential (primary) hypertension
[2019-04-02] MEDS ORDERED: PPD CHECK ONE (14:30)
[2019-04-02] MEDS ORDERED: TUBERCULIN SKIN TEST 5 TU in SYRINGE 0 ML ID ONE (14:30)
[2019-04-02] MEDS: OLANZAPINE ZYDIS 10 MG ORALLY DIS. TAB PO SCH (21:54)
[2019-04-02] MEDS: cloNIDine HCL 0.1 MG TAB PO SCH (21:54)
[2019-04-03] MEDS: MAGNESIUM OXIDE 400 MG TAB PO SCH (07:51)
[2019-04-03] MEDS: PYRIDOXINE HCL 50 MG TAB PO SCH (07:51)
[2019-04-03] MEDS: MULTIVITAMIN TAB PO SCH (07:51)
[2019-04-03] MEDS: CYANOCOBALAMIN 500 MCG TABLET (VITAMIN B-12) PO SCH (07:52)
[2019-04-03] MEDS: NICOTINE 14 MG/24 HR PATCH TD SCH (07:52)
--- NOTE | 2019-04-03 16:08 | Psychiatric Progress Note ---
Date of Service April 03, 2019 Impression / Recommendations Impression 73-year-old male with schizophrenia who lives at the [facility] and was admitted involuntarily on 02/24/2019 with delusions, hallucinations, irritability and erratic behavior after rapid decompensation 1-2 weeks after he stopped taking his antipsychotic. He was found in a dumpster, floridly delusional, and was combative with [facility] staff. He refused resumption of olanzapine, but ultimately agreed to take aripiprazole. It initially appeared that he was responding favorably, although not completely, to the addition of aripiprazole. Because of the patient's long history of dangerous behaviors in the community associated with nonadherence with psychiatric medications, the a depo antipsychotic medication was recommended, and he initially agreed to Madie Aleman; however, refused it when staff attempted to administer the injection (03/13/2019), and subsequently became much more oppositional and hostile towards staff, refusing to speak with a psychiatrist or other [facility] staff since that time. He returned to [facility], which he reports he is compliant with despite often refusing mouth checks. He refused to participate in a diversion meeting with his correction director and outpatient case preparer and liner on 03/24/19, but attended and participated in a second follow-up meeting on 03/31/2019. He briefly verbalized willingness for an FARAH, but was unwilling to proceed with subsequent oral medication adjustments to make this conversion possible. He has a clear history of dangerous behaviors during periods of nonadherence with medications in the community, and inpatient psychiatric hospitalization remains the least intensive, least restrictive level of care consistent with the patient's clinical and safety needs. He was referred to [facility] 03/23/2019. (1) Schizophrenia: 02/25 - Continue home medication regimen - as refusing offerings of his antipsychotic, will likely require olanzapine IM (or alternative agent) over objection, given clear evidence of paranoia and delusional thought process - previously stabilized on this medication - Pt agreeable to taking all other medications, with exception of antipsychotic as mentioned above - Admitted to a locked inpatient behavioral health unit, on q15 minute safety checks - Encourage medication initiation/adjustments as indicated - Encourage participation in group and recreational therapies - Gather collateral information from outpatient providers and correction staff - Suggest family meeting to involve outpatient supports in safety planning - Reschedule appropriate aftercare appointments 02/26 -Patient indicates willingness to sign a release for the [facility] correction, will get collateral from their staff. -File for 303 involuntary commitment to be held tomorrow. -Recommend medications over objection, with an IM Zyprexa backup for refusal of oral medication. Involve outpatient treatment team to discuss ways to improve stability and compliance; consider long-acting injectable antipsychotic. -Order fasting labs for monitoring on an atypical antipsychotic once patient is more cooperative. 02/27 -The patient was retrained at his involuntary commitment hearing (303) this morning. -He has continuously and consistently refused psychiatric medications to date. However, today, when I explained that that a option that might become necessary in his case is medication over objection, and an intramuscular form, the patient said that he understood and that he would try medications that I prescribe. His initial preference would be olanzapine, but because olanzapine is not available in a long acting depot form, we would first like to try aripiprazole. He indicates that he is taken aripiprazole in the past and has been able to tolerate it, although he does not believe that it has been particularly helpful. -A trial dose of aripiprazole 15 mg by mouth, as a one-time dose, has been ordered and he assessed for efficacy. 02/28 -Appears to be tolerating initiation of Abilify so far. Remains delusional, paranoid. May consider further titration tomorrow -Aricept discontinued at patient's request on 02/27/2019. The medication has not been demonstrated to be efficacious for cognitive impairment associated with long-standing schizophrenia however we should be vigilant for slowing of mentation following discontinuation. 03/01 Patient fixated and irrational regarding access to clothing item as above today. Hospital environment becoming incorporated and delusions. Consider possibility that the aripiprazole is contributing to activation. We will increase to 20 mg tomorrow and also start Risperdal 1 mg p.o. twice daily as as needed. 03/02 - Continue with aripiprazole at 20mg daily, consider need for further titration - if tolerating and effective, eventual plan will be for conversion to Abilify Maintena - Pt has not yet utilized risperidone 03/03 - Increase aripiprazole to 25mg (equivalent to 30mg pill) and change to liquid formulation to decrease risk of cheeking/nonadherence, as patient does not believe he needs medication and had been noncompliant prior to hospitalization. - Fasting glucose and lipid profile ordered for tomorrow for monitoring on an atypical antipsychotic. - Private room due to psychosis, agitation, and inappropriate disrobing/sexual behavior. - Meeting with [facility] and [facility] staff when patient able to tolerate. 03/04 - Continue aripiprazole 25mg liquid (30mg pill equivalent) and continue to observe for improvement in thought process/content - consider conversion to Maintena if effective, versus trial of another agent if improvement remains limited - Fasting labs reviewed - all values WNL - Continue medically necessary private room - Request meeting with [facility] staff, in order to obtain details about patient's proximity to baseline 03/05 -Patient refusing liquid aripiprazole, but agrees to take the pill: Ordered 30 mg daily. -Schedule meeting with his case preparer and liner, CRR and psych rehab staff. Consider involuntary outpatient commitment at the time of discharge. 03/06 -The patient has improved in that he is more reality based at this point. He continues to harbor fixed, systematized delusions, but is generally able to focus on reality based topics. -Although the patient tells me that he does not feel that aripiprazole has been effective, he is able to accept my opinion in the opinion of the staff that he has improved in response to aripiprazole. -The patient's main objection to aripiprazole oral solution is that he does not like the way it tastes, and within this context, he tells us that he is willing to accept Abilify Maintenaand requests that it be injected into his buttock. Abilify Maintena 300 mg IM ordered, and oral Abilify discontinued. We will resume oral Abilify if the patient subsequently changes his mind and refuses the injection. 03/07 resuming abilfiy oral given his refusal of FARAH form of abilify 03/08 is taking abilify po form but refusing abilify maintena form. advise close monitoring for potential of checking given pt's tendency to not want to take medications. 03/09 -The patient is flatly refusing to take aripiprazole in the form of Abilify Maintena. He is also been hesitant to take oral Abilify, but has been doing so. -The patient's lack of cooperation is thought possibly to be related to an un-expressed desire to not be discharged back to the community. He told me today that he left his meeting with his community providers after a few seconds because "just the side of them made me extremely anxious. My pulse elevated to 140." Later, he told me that he was still anxious about it and his pulse was "still around 130." The patient allowed me to take his pulse, and it was approximately 76. At that point he said, "did I say pulse? I meant systolic blood pressure." And when I pointed out that his systolic blood pressure of 130 is not considered to be a particular concern, he said "I mean diastolic." -Our hope had been that the patient would agree to accept a Depo form of medication. He was refusing Haldol Decanoate because of various side effects. Risperidone constant was ruled out as a first-line Depo medication because of the frequency of administration (the patient tends to get into power struggles over medications) and because he says that he is sensitive to "big needles." Invega would be an option, but currently the patient is being so uncooperative that our concern would be that he would cheek the oral tablets that we would have to give him first. Accordingly, the new strategy will be to discontinue Abilify, and resume olanzapine with olanzapine IM over objection if necessary. We will begin the olanzapine Zydis 20 mg at bedtime 03/10 -The patient took the prescribed dose of olanzapine Zydis 20 mg at bedtime last night. Today, he tells me that it "did not help at all." However, staff report that he has been somewhat more agreeable, more pleasant, and less paranoid today. -As he has with other providers, today he told me that I should have given him olanzapine 5 mg "to start", and I explained that he was already on olanzapine 20 mg when he came into the hospital and we know that he is able to tolerate that dose. He tells me that he did, in fact tolerate the dose and is not aware of any side effects, but, somewhat illogically, insisted that the dose was "too high for a starting dose." 03/11 - Continue current medication regimen at this time - olanzapine 20mg daily - Encourage participation in the milieu and in group programming as tolerated 03/12 -Continue current medication regimen. The patient's condition has not yet improved. -The patient does participate in select groups, but often tends to be disruptive. 03/13 -Today, the patient seems to be somewhat more cooperative and less frankly delusional. It was possible to engage in a mostly reality based conversation for 5 or 10 minutes at a time. Also, although he was unhappy with me when I refused to provide him with a dose of Valium for anxiety, he was able to remain pleasant and calm at this time, did not storm from the room." 03/14 and 03/15 -no change in medication will work on therapeutic alliance given patient is not participating 03/16 -304 involuntary commitment granted. -Patient remains completely uncooperative with treatment, refused his Zyprexa Zydis last evening, but then ultimately took it before he received the injection. I have a high suspicion for cheeking of antipsychotic medication, and we will continue to be vigilant with mouth checks, and work towards a long- acting injectable. 03/17 -Patient has been on Zyprexa 20 mg at bedtime for 1 week, with limited response. He is refusing to discuss other medication options. Per records, he has been prescribed up to 30 mg olanzapine in the past, so will increase his dose to this previously tolerated dose, as it is 1 of the few medications he has been willing to take. Continue IM backup for refusal, and Zyprexa Zydis formulation to decrease risk of cheeking. He is not compliant with mouth checks, but have asked staff to try to observe him for 10 minutes after taking the Zydis to ensure he is not spitting it out before it dissolves. 03/18 -Continue Zyprexa Zydis 30 mg at bedtime with IM backup. Consider switch to a different medication (?oral paliperidone with IM backup) if irritability and agitation continues. He has tried virtually every atypical antipsychotic and reports none of them were effective (although some trials were short due to nonadherence) and has a history of dystonia on haloperidol. Clozapine would be a reasonable choice, but he has been unwilling to even discuss medication options. -Consider some component of cognitive decline which could be contributing to his worsening presentation and will need to be monitored and worked up further once he is more psychiatrically stable. -Refer to [facility] in the event that he does not improve and long-term inpatient treatment is needed. 03/19 - Proceed with [facility] referral. 03/20 - Continue current medication regimen; patient refused EKG and CXR yesterday - refused again today - Continue attempts to gather information to make a referral to [facility] 03/23 - Proceed with [facility] referral - patient has refused EKG and CXR for multiple attempts. We will send most recent tests available - Continue current medication regimen at this time 03/24 -Attempted to hold diversion meeting with his outpatient [facility], correction director, and the [facility] MH/ID; patient refused to attend or participate in the meeting. 03/25 - 03/26 - Continue treatment plan as above - no change in patient's condition and he remains unwilling to participate meaningfully in treatment - Continue with [facility] referral 03/27 -The patient has been informed that the plan at this point is to transfer him to [facility] for long-term inpatient psychiatric treatment, given his refusal to adhere with treatment and his associated behaviors in the community when not adherent with psychiatric treatment. -The patient continues to refuse mouth checks after given dosages of Zyprexa Zydis, and there is some question regarding whether he is actually ingesting this medication. He also would not cooperate with laboratory testing. -There has been a question regarding the patient's cognitive functions, and prior to admission he had been taking Aricept. When he does cooperate with this, I have not seen evidence of any substantial cognitive impairment. He may have mild cognitive impairment, but does not fully cooperate with formal cognitive assessment. He easily recalls the names of his providers, the names of the medications he is taking, the names of the various infectious agents that he believes are causing some of his psychiatric symptoms, the names of certain chemicals that he believes will rid him of the reference to infections, and is able to discuss current events such as recent news items. His assertion that he wants to return to his apartment in the community seems belied by his steadfast refusal to cooperate with those interventions I would make it possible for him to return, and there is some suspicion that although the patient remains floridly psychotic he may also be intentionally sabotaging discharge. 03/28 - 03/30 -There is been no change advisor the past 2 weeks, and long-term inpatient treatment at the [facility] is indicated. 8/13 - Continue current medication regimen - Pt briefly verbalized willingness for FARAH, but was not agreeable to medication adjustments to allow for this to be possible - If he should change his mind; recommendation is for trial of Invega orally to establish tolerability, then consideration for Invega Sustenna - unwilling for this today 04/01 - 04/03 - Continue current medication regimen - Continues to refuse FARAH, will continue discussion daily as this is the reported preference of his CRR (2) Substance abuse: 02/25 - Pt has reported history of substance abuse, and recommendation has consistently been for avoidance of substances with significant abuse potential. - PDMP queried - most recent prescriptions below - lorazepam 0.5mg #60 tabs for 30 day supply - Dr. Alves - filled 02/12/2019 - alprazolam 0.5mg #90 tabs for 30 day supply - Dr. Lopez - filled 01/16/2019 - temazepam 30mg #30 caps for 30 day supply - Dr. Lopez - filled 01/16/2019 - Will continue lorazepam 0.5mg BID prn on admission, as only medication that is seemingly active - toxicology screen is negative for benzodiazepines, which questions if he has been taking the medication appropriately - Ideally will taper and discontinue the lorazepam, as recommendation remains that substances with abuse potential be avoided 02/26 -The patient's outpatient providers, during a meeting this morning, report that the patient tends to successfully convince physicians to prescribe benzodiazepines for him and that, in the past, he has abused him to the degree that he is practically obtunded. 02/27 -A repeat check of the PDMP reveals that the patient is consistently being prescribed lorazepam 0.5 mg twice daily (number 60/month) by a Dr. April Alves. He is also being prescribed alprazolam 0.[address] mg [address] Jeff Lopez, with the most recent previous prescription of alprazolam being on 01/16/[address] Lopez also prescribed temazepam 30 mg capsules #30 on 01/16/2019. According to his residential providers, no temazepam capsules were found among the patient's belongings. His most recent prescription for lorazepam 0.5 mg tablets was filled on 02/12/2019. 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 In the past, he reportedly has used clonazepam and temazepam. -I advised the patient that because of his history of misuse of benzodiazepines we would not be prescribing benzodiazepines during his hospital stay. An as needed order for lorazepam has not been used during hospital stay, and I discontinued the order today. 03/02 - Will need to coordinate care with his PCP and outpatient psychiatrist prior to discharge regarding the above. 03/04 - Charge nurse spoke with the above offices regarding concern for continued benzodiazepine prescriptions - Records will be faxed to their offices on discharge, as all benzodiazepines were discontinued during this hospitalization 03/06 -The patient did not request benzodiazepines and did not complain of anxiety today. I suggested to him that perhaps Abilify is also helping with anxiety in his case, and he responded by saying "perhaps." 03/09 -Today, the patient is insisting that what he needs is "benzodiazepines," and explains that the reason he "needs" benzodiazepines is that he has "benzodiazepine receptors," and that he is the only medications that work. He is unable to process warnings about the risks of benzodiazepines in the elderly, including increased risk of falls and mortality. Clearly, the patient is seeking benzodiazepines and has no insight into the associated risks. He also insists that he has never had trouble with benzodiazepines in the past, although there is well-documented of this. 03/10 -Today, the patient repeated his insistence that he needs benzodiazepines and that benzodiazepines are the only medications that work because he has "benzodiazepine receptors." After being told that everyone has central nervous system receptors to which benzodiazepines may attach, he replied, "That may be, but some of people need to have benzodiazepines forearm benzodiazepine receptors. 03/12 -Continues to request Benzodiazepines. 03/13 -Requests Valium for his "benzodiazepines receptors." 03/27 -Refuses to cooperate with assessment today, but has recently told staff that he needs "either Valium or Ativan." -The patient apparently has no working insight into his history of abuse of prescription medications (benzodiazepines). (3) Hypertension: 02/25 - Continue home dose of clonidine 0.1mg qHS 03/01 Watch mildly elevated blood pressures as patient has been refusing clonidine 03/03 - BP normal past two days, and low today 03/10 -The patient's blood pressure today was 136/73. His pulse was 71 03/14 - elevated BP it is not urgent but will need monitored. 03/15 - BP WNL 03/26 - BP continues to be WNL 04/02 - BP remains within normal limits; continue daily vitals per standard admission orders - Will consider acute phase of this problem resolved at this time Inventory Assets Strengths: -Intelligence. Support of community providers. Well educated. Needs: Resume symptom-stabilizing medication regimen, coordinate care with correction Risk Factors Assessment Male: Yes : Yes Do You Have Access To A Gun?: No Health Problems: Yes Mental Health Diagnoses: Yes Substance Use Disorders: Yes Protective Factors Assessment L[employer] Day Beliefs: No : No Responsible for Young Children: No Employed: No Stable Relationships: No Supportive Family: No Good Rapport with Provider: No Interval History Identifying Information SCOTT ROBERTO is a 73-year-old M who currently lives at a [facility] in [place]. Pt has a history of schizophrenia and is known to our unit from several previous admissions, most recently in 09/2016. Pt and was admitted on 02/24/19 16:40 on a 302 involuntary commitment for exacerbation of schizophrenia and heightened paranoia resulting in belief he needed to hide in a dumpster to seek refuge from impending bombings. Pt was found by [facility] staff and brought to the ED by police. He is on a 304 involuntary commitment as of 03/16/19. Chief Complaint "I did not sleep well last night." Review of Systems Notes Pt uncooperative with interview today, unable to assess complete review of systems. Sleep Information Total Hours of Sleep: 7 Sleep Comments: awake once for a snack (cereal) Meal Information Percent Meal Consumed - Breakfast: 100 Percent Meal Consumed - Lunch: 100 Percent Meal Consumed - Dinner: 100 Nutrition Comment: per meal record Subjective Subjective Patient was seen & assessed and interval progress reviewed with treatment team. Staff reports the patient has demonstrated little change in his condition. A meeting with staff from his [facility] is scheduled for 04/06/2019. Patient was seen today to assess progress since admission. Patient was initially cooperative with conversation, and verbalize to this provider difficulty with sleep last evening. Patient was unable to specify a cause, denying racing thoughts or loud distractions during the evening. Patient states, "what are you going to do about that?" Patient was reminded that PRN hydroxyzine is available for sleeping difficulties. Patient states "the only medication that works is temazepam, are you going to give that to me?" The patient was informed by this provider that temazepam belongs to a class of medications that we are avoiding in his case, to avoid destabilization and regression of the progress he has made. Patient becomes angry, again requesting that this provider order temazepam for his sleep. Patient was again told that that would not be an option, and was again offered hydroxyzine. Patient loudly yells, "I AM ASKING YOU A HUMAN BEING TO HELP ME WITH MY SLEEP." This provider attempted to further discuss alternative options, when the patient interrupted and said, "I will not speak any more." Physical Exam Psychiatric Orientation: alert and oriented x 3; + uncooperative Apperance: appropriately dressed, appropriately groomed and appeared stated age Eye Contact: good eye contact Motor Behavior: steady gait and station and no abnormal motor movements Speech: normal rate/rhythm/volume of speech (irritable tone toward end of conversation) Affect: + flat affect and + irritable affect (towards end of conversation) Unable to have patient's cooperation long enough to discuss current mood Thought Process: goal directed thought process (goal of getting temazepam for sleep) and + concrete thought process Estimated Intelligence: consistent with education level Insight: + severely impaired insight Judgement: + severely impaired judgement Vital Signs (Past 24 Hours) Last Vital Signs Temp 36.5 C 04/03/19 06:00 Pulse 73 04/03/19 06:43 Resp 17 04/03/19 06:00 BP 126/64 04/03/19 06:43 Pulse Ox 96 02/24/19 08:10 Results & Data Current Inpatient Medications Current Inpatient Medications: Current Inpatient Medications Acetaminophen (Tylenol) 650 mg PO Q4H PRN PRN Reason: Headache or Minor Fever Stop: 04/24/19 08:39 Al Hydrox/Mg Hydrox/Simethicone (Maalox) 30 ml PO Q4H PRN PRN Reason: GI Upset Stop: 04/24/19 08:39 Benztropine Mesylate (Cogentin) 0.5 mg PO BID PRN PRN Reason: dystonia Stop: 04/24/19 08:39 Bismuth Subsalicylate (Kaopectate) 15 ml PO PRN PRN PRN Reason: Loose Stool Stop: 04/24/19 08:39 Clonidine HCl (Catapres) 0.1 mg PO HS [facility] Stop: 04/24/19 21:59 Last Admin: 04/02/19 21:54 Dose: 0.1 mg Documented by: Cyanocobalamin (Vitamin B-12) 500 mcg PO DAILY MAG Stop: 04/24/19 08:59 Last Admin: 04/03/19 07:52 Dose: 500 mcg Documented by: Hydroxyzine HCl (Vistaril) 50 mg PO HSZ PRN PRN Reason: Insomnia Stop: 04/24/19 08:44 Hydroxyzine HCl (Vistaril) 25 mg PO Q4H PRN PRN Reason: Anxiety Stop: 04/24/19 08:44 Magnesium Citrate (Citrate) 148 ml PO BID PRN PRN Reason: constipation Stop: 04/22/19 20:59 Last Admin: 03/23/19 17:19 Dose: 148 ml Documented by: Magnesium Hydroxide (Milk Of Magnesia) 30 ml PO DAILY PRN PRN Reason: Heartburn Stop: 04/24/19 08:44 Magnesium Oxide (Mag-Ox) 400 mg PO DAILY MAG Stop: 04/24/19 08:59 Last Admin: 04/03/19 07:51 Dose: 400 mg Documented by: Miscellaneous (Remove Nicoderm Patch) 1 ea N/A HS MAG Stop: 04/24/19 21:59 Last Admin: 04/02/19 21:56 Dose: Not Given Documented by: Miscellaneous (Ppd Check) 1 ea N/A Q48H ONE Stop: 04/04/19 14:31 Multivitamins (Multivitamin Tab) 1 tab PO DAILY MAG Stop: 04/24/19 08:59 Last Admin: 04/03/19 07:51 Dose: 1 tab Documented by: Nicotine (Nicoderm Cq) 14 mg TD QAM MAG Stop: 04/24/19 08:59 Last Admin: 04/03/19 07:52 Dose: Not Given Documented by: Olanzapine (Zyprexa) 10 mg IM HS PRN PRN Reason: Undecided Stop: 04/24/19 08:44 Olanzapine (Zyprexa Zydis Od) 30 mg PO HS MAG Stop: 04/24/19 21:59 Last Admin: 04/02/19 21:54 Dose: 30 mg Documented by: Pyridoxine HCl (Vitamin B-6) 100 mg PO DAILY MAG Stop: 04/24/19 08:59 Last Admin: 04/03/19 07:51 Dose: 100 mg Documented by: Risperidone (Risperdal M) 1 mg PO BID PRN PRN Reason: psychosis Stop: 04/24/19 08:44 Sodium Chloride (Export Nasal) 1 - 2 sprays NA PRN PRN PRN Reason: Nasal Dryness/Congestion Stop: 04/24/19 08:44 Mental Health & Subst Abuse Tx Therapist Name of Therapist: Sammy Die Welder Name of Die Welder: Shruti Lopez Phone Number for Die Welder: Case Management Appointment Comment: [phone], [place] [address] Post Discharge Appointments Primary Care Physician Name Of Family Doctor: Dr. Lopez Contact Information Discharge Discharge Address: [address] [place] [address], [place] [address] CPT Code CPT Code 54426 (1) Schizophrenia Schizophrenia type: paranoid schizophrenia Qualified Code(s): F20.0 - Paranoid schizophrenia (2) Hypertension Hypertension type: essential hypertension Qualified Code(s): I10 - Essential (primary) hypertension
[2019-04-03] MEDS: cloNIDine HCL 0.1 MG TAB PO SCH (21:09)
[2019-04-03] MEDS: OLANZAPINE ZYDIS 10 MG ORALLY DIS. TAB PO SCH (21:09)
[2019-04-04] MEDS: PYRIDOXINE HCL 50 MG TAB PO SCH (08:55)
[2019-04-04] MEDS: MULTIVITAMIN TAB PO SCH (08:55)
[2019-04-04] MEDS: CYANOCOBALAMIN 500 MCG TABLET (VITAMIN B-12) PO SCH (08:55)
[2019-04-04] MEDS: MAGNESIUM OXIDE 400 MG TAB PO SCH (08:55)
[2019-04-04] MEDS: NICOTINE 14 MG/24 HR PATCH TD SCH (08:56)
[2019-04-04] MEDS ORDERED: PPD CHECK ONE (14:30)
--- NOTE | 2019-04-04 18:07 | Psychiatric Progress Note ---
Date of Service April 04, 2019 Impression / Recommendations Impression 73-year-old male with schizophrenia who lives at the [facility] and was admitted involuntarily on 02/24/2019 with delusions, hallucinations, irritability and erratic behavior after rapid decompensation 1-2 weeks after he stopped taking his antipsychotic. He was found in a dumpster, floridly delusional, and was combative with [facility] staff. He refused resumption of olanzapine, but ultimately agreed to take aripiprazole. It initially appeared that he was responding favorably, although not completely, to the addition of aripiprazole. Because of the patient's long history of dangerous behaviors in the community associated with nonadherence with psychiatric medications, the a depo antipsychotic medication was recommended, and he initially agreed to Madie Aleman; however, refused it when staff attempted to administer the injection (03/13/2019), and subsequently became much more oppositional and hostile towards staff, refusing to speak with a psychiatrist or other [facility] staff since that time. He returned to [facility], which he reports he is compliant with despite often refusing mouth checks. He refused to participate in a diversion meeting with his nursing home director and outpatient field nurse case manager on 03/24/19, but attended and participated in a second follow-up meeting on 03/31/2019. He briefly verbalized willingness for an FARAH, but was unwilling to proceed with subsequent oral medication adjustments to make this conversion possible. He has a clear history of dangerous behaviors during periods of nonadherence with medications in the community, and inpatient psychiatric hospitalization remains the least intensive, least restrictive level of care consistent with the patient's clinical and safety needs. He was referred to [facility] 03/23/2019. (1) Schizophrenia: 02/25 - Continue home medication regimen - as refusing offerings of his antipsychotic, will likely require olanzapine IM (or alternative agent) over objection, given clear evidence of paranoia and delusional thought process - previously stabilized on this medication - Pt agreeable to taking all other medications, with exception of antipsychotic as mentioned above - Admitted to a locked inpatient behavioral health unit, on q15 minute safety checks - Encourage medication initiation/adjustments as indicated - Encourage participation in group and recreational therapies - Gather collateral information from outpatient providers and nursing home staff - Suggest family meeting to involve outpatient supports in safety planning - Reschedule appropriate aftercare appointments 02/26 -Patient indicates willingness to sign a release for the [facility] nursing home, will get collateral from their staff. -File for 303 involuntary commitment to be held tomorrow. -Recommend medications over objection, with an IM Zyprexa backup for refusal of oral medication. Involve outpatient treatment team to discuss ways to improve stability and compliance; consider long-acting injectable antipsychotic. -Order fasting labs for monitoring on an atypical antipsychotic once patient is more cooperative. 02/27 -The patient was retrained at his involuntary commitment hearing (303) this morning. -He has continuously and consistently refused psychiatric medications to date. However, today, when I explained that that a option that might become necessary in his case is medication over objection, and an intramuscular form, the patient said that he understood and that he would try medications that I prescribe. His initial preference would be olanzapine, but because olanzapine is not available in a long acting depot form, we would first like to try aripiprazole. He indicates that he is taken aripiprazole in the past and has been able to tolerate it, although he does not believe that it has been particularly helpful. -A trial dose of aripiprazole 15 mg by mouth, as a one-time dose, has been ordered and he assessed for efficacy. 02/28 -Appears to be tolerating initiation of Abilify so far. Remains delusional, paranoid. May consider further titration tomorrow -Aricept discontinued at patient's request on 02/27/2019. The medication has not been demonstrated to be efficacious for cognitive impairment associated with long-standing schizophrenia however we should be vigilant for slowing of mentation following discontinuation. 03/01 Patient fixated and irrational regarding access to clothing item as above today. Hospital environment becoming incorporated and delusions. Consider possibility that the aripiprazole is contributing to activation. We will increase to 20 mg tomorrow and also start Risperdal 1 mg p.o. twice daily as as needed. 03/02 - Continue with aripiprazole at 20mg daily, consider need for further titration - if tolerating and effective, eventual plan will be for conversion to Abilify Maintena - Pt has not yet utilized risperidone 03/03 - Increase aripiprazole to 25mg (equivalent to 30mg pill) and change to liquid formulation to decrease risk of cheeking/nonadherence, as patient does not believe he needs medication and had been noncompliant prior to hospitalization. - Fasting glucose and lipid profile ordered for tomorrow for monitoring on an atypical antipsychotic. - Private room due to psychosis, agitation, and inappropriate disrobing/sexual behavior. - Meeting with [facility] and [facility] staff when patient able to tolerate. 03/04 - Continue aripiprazole 25mg liquid (30mg pill equivalent) and continue to observe for improvement in thought process/content - consider conversion to Maintena if effective, versus trial of another agent if improvement remains limited - Fasting labs reviewed - all values WNL - Continue medically necessary private room - Request meeting with [facility] staff, in order to obtain details about patient's proximity to baseline 03/05 -Patient refusing liquid aripiprazole, but agrees to take the pill: Ordered 30 mg daily. -Schedule meeting with his field nurse case manager, [facility] and psych rehab staff. Consider involuntary outpatient commitment at the time of discharge. 03/06 -The patient has improved in that he is more reality based at this point. He continues to harbor fixed, systematized delusions, but is generally able to focus on reality based topics. -Although the patient tells me that he does not feel that aripiprazole has been effective, he is able to accept my opinion in the opinion of the staff that he has improved in response to aripiprazole. -The patient's main objection to aripiprazole oral solution is that he does not like the way it tastes, and within this context, he tells us that he is willing to accept Abilify Maintenaand requests that it be injected into his buttock. Abilify Maintena 300 mg IM ordered, and oral Abilify discontinued. We will resume oral Abilify if the patient subsequently changes his mind and refuses the injection. 03/07 resuming abilfiy oral given his refusal of FARAH form of abilify 03/08 is taking abilify po form but refusing abilify maintena form. advise close monitoring for potential of checking given pt's tendency to not want to take medications. 03/09 -The patient is flatly refusing to take aripiprazole in the form of Abilify Maintena. He is also been hesitant to take oral Abilify, but has been doing so. -The patient's lack of cooperation is thought possibly to be related to an un-expressed desire to not be discharged back to the community. He told me today that he left his meeting with his community providers after a few seconds because "just the side of them made me extremely anxious. My pulse elevated to 140." Later, he told me that he was still anxious about it and his pulse was "still around 130." The patient allowed me to take his pulse, and it was approximately 76. At that point he said, "did I say pulse? I meant systolic blood pressure." And when I pointed out that his systolic blood pressure of 130 is not considered to be a particular concern, he said "I mean diastolic." -Our hope had been that the patient would agree to accept a Depo form of medication. He was refusing Haldol Decanoate because of various side effects. Risperidone constant was ruled out as a first-line Depo medication because of the frequency of administration (the patient tends to get into power struggles over medications) and because he says that he is sensitive to "big needles." Invega would be an option, but currently the patient is being so uncooperative that our concern would be that he would cheek the oral tablets that we would have to give him first. Accordingly, the new strategy will be to discontinue Abilify, and resume olanzapine with olanzapine IM over objection if necessary. We will begin the olanzapine Zydis 20 mg at bedtime 03/10 -The patient took the prescribed dose of olanzapine Zydis 20 mg at bedtime last night. Today, he tells me that it "did not help at all." However, staff report that he has been somewhat more agreeable, more pleasant, and less paranoid today. -As he has with other providers, today he told me that I should have given him olanzapine 5 mg "to start", and I explained that he was already on olanzapine 20 mg when he came into the hospital and we know that he is able to tolerate that dose. He tells me that he did, in fact tolerate the dose and is not aware of any side effects, but, somewhat illogically, insisted that the dose was "too high for a starting dose." 03/11 - Continue current medication regimen at this time - olanzapine 20mg daily - Encourage participation in the milieu and in group programming as tolerated 03/12 -Continue current medication regimen. The patient's condition has not yet improved. -The patient does participate in select groups, but often tends to be disruptive. 03/13 -Today, the patient seems to be somewhat more cooperative and less frankly delusional. It was possible to engage in a mostly reality based conversation for 5 or 10 minutes at a time. Also, although he was unhappy with me when I refused to provide him with a dose of Valium for anxiety, he was able to remain pleasant and calm at this time, did not storm from the room." 03/14 and 03/15 -no change in medication will work on therapeutic alliance given patient is not participating 03/16 -304 involuntary commitment granted. -Patient remains completely uncooperative with treatment, refused his Zyprexa Zydis last evening, but then ultimately took it before he received the injection. I have a high suspicion for cheeking of antipsychotic medication, and we will continue to be vigilant with mouth checks, and work towards a long- acting injectable. 03/17 -Patient has been on Zyprexa 20 mg at bedtime for 1 week, with limited response. He is refusing to discuss other medication options. Per records, he has been prescribed up to 30 mg olanzapine in the past, so will increase his dose to this previously tolerated dose, as it is 1 of the few medications he has been willing to take. Continue IM backup for refusal, and Zyprexa Zydis formulation to decrease risk of cheeking. He is not compliant with mouth checks, but have asked staff to try to observe him for 10 minutes after taking the Zydis to ensure he is not spitting it out before it dissolves. 03/18 -Continue Zyprexa Zydis 30 mg at bedtime with IM backup. Consider switch to a different medication (?oral paliperidone with IM backup) if irritability and agitation continues. He has tried virtually every atypical antipsychotic and reports none of them were effective (although some trials were short due to nonadherence) and has a history of dystonia on haloperidol. Clozapine would be a reasonable choice, but he has been unwilling to even discuss medication options. -Consider some component of cognitive decline which could be contributing to his worsening presentation and will need to be monitored and worked up further once he is more psychiatrically stable. -Refer to [facility] in the event that he does not improve and long-term inpatient treatment is needed. 03/19 - Proceed with [facility] referral. 03/20 - Continue current medication regimen; patient refused EKG and CXR yesterday - refused again today - Continue attempts to gather information to make a referral to [facility] 03/23 - Proceed with [facility] referral - patient has refused EKG and CXR for multiple attempts. We will send most recent tests available - Continue current medication regimen at this time 03/24 -Attempted to hold diversion meeting with his outpatient [facility], nursing home director, and the [facility]; patient refused to attend or participate in the meeting. 03/25 - 03/26 - Continue treatment plan as above - no change in patient's condition and he remains unwilling to participate meaningfully in treatment - Continue with [place] referral 03/27 -The patient has been informed that the plan at this point is to transfer him to [facility] for long-term inpatient psychiatric treatment, given his refusal to adhere with treatment and his associated behaviors in the community when not adherent with psychiatric treatment. -The patient continues to refuse mouth checks after given dosages of Zyprexa Zydis, and there is some question regarding whether he is actually ingesting this medication. He also would not cooperate with laboratory testing. -There has been a question regarding the patient's cognitive functions, and prior to admission he had been taking Aricept. When he does cooperate with this, I have not seen evidence of any substantial cognitive impairment. He may have mild cognitive impairment, but does not fully cooperate with formal cognitive assessment. He easily recalls the names of his providers, the names of the medications he is taking, the names of the various infectious agents that he believes are causing some of his psychiatric symptoms, the names of certain chemicals that he believes will rid him of the reference to infections, and is able to discuss current events such as recent news items. His assertion that he wants to return to his apartment in the community seems belied by his steadfast refusal to cooperate with those interventions I would make it possible for him to return, and there is some suspicion that although the patient remains floridly psychotic he may also be intentionally sabotaging discharge. 03/28 - 03/30 -There is been no post exchange manager the past 2 weeks, and long-term inpatient treatment at the [facility] is indicated. 8/13 - Continue current medication regimen - Pt briefly verbalized willingness for FARAH, but was not agreeable to medication adjustments to allow for this to be possible - If he should change his mind; recommendation is for trial of Invega orally to establish tolerability, then consideration for Invega Sustenna - unwilling for this today 04/01 - 04/03 - Continue current medication regimen - Continues to refuse FARAH, will continue discussion daily as this is the reported preference of his [facility] 04/04 -Questionable positive PPD measuring 13 mm but history of confinement places him at higher risk. Patient refused chest x-ray today but we will reapproach. No active symptoms of infection. Order for sputum culture and smear today for confirmation. (2) Substance abuse: 02/25 - Pt has reported history of substance abuse, and recommendation has consistently been for avoidance of substances with significant abuse potential. - PDMP queried - most recent prescriptions below - lorazepam 0.5mg #60 tabs for 30 day supply - Dr. Alves - filled 02/12/2019 - alprazolam 0.5mg #90 tabs for 30 day supply - Dr. Lopez - filled 01/16/2019 - temazepam 30mg #30 caps for 30 day supply - Dr. Lopez - filled 01/16/2019 - Will continue lorazepam 0.5mg BID prn on admission, as only medication that is seemingly active - toxicology screen is negative for benzodiazepines, which questions if he has been taking the medication appropriately - Ideally will taper and discontinue the lorazepam, as recommendation remains that substances with abuse potential be avoided 02/26 -The patient's outpatient providers, during a meeting this morning, report that the patient tends to successfully convince physicians to prescribe benzodiazepines for him and that, in the past, he has abused him to the degree that he is practically obtunded. 02/27 -A repeat check of the PDMP reveals that the patient is consistently being prescribed lorazepam 0.5 mg twice daily (number 60/month) by a Dr. Brent Alves. He is also being prescribed alprazolam 0.[address] mg [address] Jeff Lopez, with the most recent previous prescription of alprazolam being on 01/16/[address] Lopez also prescribed temazepam 30 mg capsules #30 on 01/16/2019. According to his residential providers, no temazepam capsules were found among the patient's belongings. His most recent prescription for lorazepam 0.5 mg tablets was filled on 02/12/2019. 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 In the past, he reportedly has used clonazepam and temazepam. -I advised the patient that because of his history of misuse of benzodiazepi bar we would not be prescribing benzodiazepines during his hospital stay. An as needed order for lorazepam has not been used during hospital stay, and I discontinued the order today. 03/02 - Will need to coordinate care with his PCP and outpatient psychiatrist prior to discharge regarding the above. 03/04 - Charge nurse spoke with the above offices regarding concern for continued benzodiazepine prescriptions - Records will be faxed to their offices on discharge, as all benzodiazepines were discontinued during this hospitalization 03/06 -The patient did not request benzodiazepines and did not complain of anxiety today. I suggested to him that perhaps Abilify is also helping with anxiety in his case, and he responded by saying "perhaps." 03/09 -Today, the patient is insisting that what he needs is "benzodiazepines," and explains that the reason he "needs" benzodiazepines is that he has "benzodiazepine receptors," and that he is the only medications that work. He is unable to process warnings about the risks of benzodiazepines in the elderly, including increased risk of falls and mortality. Clearly, the patient is seeking benzodiazepines and has no insight into the associated risks. He also insists that he has never had trouble with benzodiazepines in the past, although there is well-documented of this. 03/10 -Today, the patient repeated his insistence that he needs benzodiazepines and that benzodiazepines are the only medications that work because he has "benzodiazepine receptors." After being told that everyone has central nervous system receptors to which benzodiazepines may attach, he replied, "That may be, but some of people need to have benzodiazepines forearm benzodiazepine receptors. 03/12 -Continues to request Benzodiazepines. 03/13 -Requests Valium for his "benzodiazepines receptors." 03/27 -Refuses to cooperate with assessment today, but has recently told staff that he needs "either Valium or Ativan." -The patient apparently has no working insight into his history of abuse of prescription medications (benzodiazepines). (3) Hypertension: 02/25 - Continue home dose of clonidine 0.1mg qHS 03/01 Watch mildly elevated blood pressures as patient has been refusing clonidine 03/03 - BP normal past two days, and low today 03/10 -The patient's blood pressure today was 136/73. His pulse was 71 03/14 - elevated BP it is not urgent but will need monitored. 03/15 - BP WNL 03/26 - BP continues to be WNL 04/02 - BP remains within normal limits; continue daily vitals per standard admission orders - Will consider acute phase of this problem resolved at this time Inventory Assets Strengths: -Intelligence. Support of community providers. Well educated. Needs: Resume symptom-stabilizing medication regimen, coordinate care with nursing home Risk Factors Assessment Male: Yes : Yes Do You Have Access To A Gun?: No Health Problems: Yes Mental Health Diagnoses: Yes Substance Use Disorders: Yes Protective Factors Assessment Voodoo Beliefs: No : No Responsible for Young Children: No Employed: No Stable Relationships: No Supportive Family: No Good Rapport with Provider: No Interval History Identifying Information SCOTT ROBERTO is a 73-year-old M who currently lives at a [facility] in [place]. Pt has a history of schizophrenia and is known to our unit from several previous admissions, most recently in 09/2016. Pt and was admitted on 02/24/19 16:40 on a 302 involuntary commitment for exacerbation of schizophrenia and heightened paranoia resulting in belief he needed to hide in a dumpster to seek refuge from impending bombings. Pt was found by [facility] staff and brought to the ED by police. He is on a 304 involuntary commitment as of 03/16/19. Chief Complaint "I would like to have a toxoplasmosis test". Review of Systems Notes Denies new physical symptoms except as above Sleep Information Total Hours of Sleep: 6.25 Sleep Comments: awake at 0145 - ate cereals with juice then went back to bed/sleep Meal Information Percent Meal Consumed - Breakfast: 100 Percent Meal Consumed - Lunch: 100 Percent Meal Consumed - Dinner: 100 Nutrition Comment: per meal record Subjective Subjective Patient was seen & assessed and interval progress reviewed with treatment team. He has been compliant with medication and participating in unit activities. The only acute event overnight is questionable positive PPD. On examination this morning there is an area of induration at site of PPD administration measuring 13 mm in diameter perpendicular to arm. Patient denies known history of tuberculosis exposure however he has been a resident in nursing care and hospital settings. He denies any pulmonary symptoms or constitutional symptoms today. He reports feeling well and again asks for toxoplasmosis retesting which he seems to believe may be the trigger for his psychosis. He refuses chest x- ray stating he does not want exposure to additional radiation but was agreeable to sputum culture. Physical Exam Psychiatric Orientation: cooperative and + guarded Apperance: appropriately dressed Eye Contact: good eye contact Motor Behavior: steady gait and station Speech: normal rate/rhythm/volume of speech Affect appears a little restrained Mood: no depressed mood Thought Process: + perseveration Thought Content: + preoccupation Suicidal Thoughts: + reports suicidal thoughts Cognition: recent memory grossly intact Insight: + poor insight Vital Signs (Past 24 Hours) Last Vital Signs Temp 36.6 C 04/04/19 06:40 Pulse 76 04/04/19 06:41 Resp 18 04/04/19 06:40 BP 113/76 04/04/19 06:41 Pulse Ox 96 02/24/19 08:10 Results & Data Current Inpatient Medications Current Inpatient Medications: Current Inpatient Medications Acetaminophen (Tylenol) 650 mg PO Q4H PRN PRN Reason: Headache or Minor Fever Stop: 04/24/19 08:39 Al Hydrox/Mg Hydrox/Simethicone (Maalox) 30 ml PO Q4H PRN PRN Reason: GI Upset Stop: 04/24/19 08:39 Benztropine Mesylate (Cogentin) 0.5 mg PO BID PRN PRN Reason: dystonia Stop: 04/24/19 08:39 Bismuth Subsalicylate (Kaopectate) 15 ml PO PRN PRN PRN Reason: Loose Stool Stop: 04/24/19 08:39 Clonidine HCl (Catapres) 0.1 mg PO HS MAG Stop: 04/24/19 21:59 Last Admin: 04/03/19 21:09 Dose: 0.1 mg Documented by: Cyanocobalamin (Vitamin B-12) 500 mcg PO DAILY MAG Stop: 04/24/19 08:59 Last Admin: 04/04/19 08:55 Dose: 500 mcg Documented by: Hydroxyzine HCl (Vistaril) 50 mg PO HSZ PRN PRN Reason: Insomnia Stop: 04/24/19 08:44 Hydroxyzine HCl (Vistaril) 25 mg PO Q4H PRN PRN Reason: Anxiety Stop: 04/24/19 08:44 Magnesium Citrate (Citrate) 148 ml PO BID PRN PRN Reason: constipation Stop: 04/22/19 20:59 Last Admin: 03/23/19 17:19 Dose: 148 ml Documented by: Magnesium Hydroxide (Milk Of Magnesia) 30 ml PO DAILY PRN PRN Reason: Heartburn Stop: 04/24/19 08:44 Magnesium Oxide (Mag-Ox) 400 mg PO DAILY MAG Stop: 04/24/19 08:59 Last Admin: 04/04/19 08:55 Dose: 400 mg Documented by: Miscellaneous (Remove Nicoderm Patch) 1 ea N/A HS MAG Stop: 04/24/19 21:59 Last Admin: 04/03/19 21:12 Dose: Not Given Documented by: Multivitamins (Multivitamin Tab) 1 tab PO DAILY MAG Stop: 04/24/19 08:59 Last Admin: 04/04/19 08:55 Dose: 1 tab Documented by: Nicotine (Nicoderm Cq) 14 mg TD QAM MAG Stop: 04/24/19 08:59 Last Admin: 04/04/19 08:56 Dose: Not Given Documented by: Olanzapine (Zyprexa) 10 mg IM HS PRN PRN Reason: Undecided Stop: 04/24/19 08:44 Olanzapine (Zyprexa Zydis Od) 30 mg PO HS MAG Stop: 04/24/19 21:59 Last Admin: 04/03/19 21:09 Dose: 30 mg Documented by: Pyridoxine HCl (Vitamin B-6) 100 mg PO DAILY MAG Stop: 04/24/19 08:59 Last Admin: 04/04/19 08:55 Dose: 100 mg Documented by: Risperidone (Risperdal M) 1 mg PO BID PRN PRN Reason: psychosis Stop: 04/24/19 08:44 Sodium Chloride ([employer] Nasal) 1 - 2 sprays NA PRN PRN PRN Reason: Nasal Dryness/Congestion Stop: 04/24/19 08:44 Mental Health & Subst Abuse Tx Therapist Name of Therapist: Denies Mdm Sr Name of Mdm Sr: Shruti Lopez Phone Number for Mdm Sr: Case Management Appointment Comment: [phone], [place] [address] Post Discharge Appointments Primary Care Physician Name Of Family Doctor: Dr. Lopez Contact Information Discharge Discharge Address: [address] [place] [address], [place] [address] CPT Code CPT Code 49911 (1) Schizophrenia Schizophrenia type: paranoid schizophrenia Qualified Code(s): F20.0 - Paranoid schizophrenia (2) Hypertension Hypertension type: essential hypertension Qualified Code(s): I10 - Essential (primary) hypertension
[2019-04-04] MEDS: cloNIDine HCL 0.1 MG TAB PO SCH (21:16)
[2019-04-04] MEDS: OLANZAPINE ZYDIS 10 MG ORALLY DIS. TAB PO SCH (21:16)
[2019-04-05] MEDS: MAGNESIUM OXIDE 400 MG TAB PO SCH (09:31)
[2019-04-05] MEDS: NICOTINE 14 MG/24 HR PATCH TD SCH (09:31)
[2019-04-05] MEDS: CYANOCOBALAMIN 500 MCG TABLET (VITAMIN B-12) PO SCH (09:32)
[2019-04-05] MEDS: MULTIVITAMIN TAB PO SCH (09:32)
[2019-04-05] MEDS: PYRIDOXINE HCL 50 MG TAB PO SCH (09:32)
--- NOTE | 2019-04-05 13:37 | Psychiatric Progress Note ---
Date of Service April 05, 2019 Impression / Recommendations Impression 73-year-old male with schizophrenia who lives at the [facility] and was admitted involuntarily on 02/24/2019 with delusions, hallucinations, irritability and erratic behavior after rapid decompensation 1-2 weeks after he stopped taking his antipsychotic. He was found in a dumpster, floridly delusional, and was combative with [facility] staff. He refused resumption of olanzapine, but ultimately agreed to take aripiprazole. It initially appeared that he was responding favorably, although not completely, to the addition of aripiprazole. Because of the patient's long history of dangerous behaviors in the community associated with nonadherence with psychiatric medications, the a depo antipsychotic medication was recommended, and he initially agreed to Madie Aleman; however, refused it when staff attempted to administer the injection (03/13/2019), and subsequently became much more oppositional and hostile towards staff, refusing to speak with a psychiatrist or other [facility] staff since that time. He returned to [facility], which he reports he is compliant with despite often refusing mouth checks. He refused to participate in a diversion meeting with his residential director and outpatient [employer] on 03/24/19, but attended and participated in a second follow-up meeting on 03/31/2019. He briefly verbalized willingness for an FARAH, but was unwilling to proceed with subsequent oral medication adjustments to make this conversion possible. He has a clear history of dangerous behaviors during periods of nonadherence with medications in the community, and inpatient psychiatric hospitalization remains the least intensive, least restrictive level of care consistent with the patient's clinical and safety needs. He was referred to [facility] 03/23/2019. (1) Schizophrenia: 02/25 - Continue home medication regimen - as refusing offerings of his antipsychotic, will likely require olanzapine IM (or alternative agent) over objection, given clear evidence of paranoia and delusional thought process - previously stabilized on this medication - Pt agreeable to taking all other medications, with exception of antipsychotic as mentioned above - Admitted to a locked inpatient behavioral health unit, on q15 minute safety checks - Encourage medication initiation/adjustments as indicated - Encourage participation in group and recreational therapies - Gather collateral information from outpatient providers and residential staff - Suggest family meeting to involve outpatient supports in safety planning - Reschedule appropriate aftercare appointments 02/26 -Patient indicates willingness to sign a release for the [facility] residential, will get collateral from their staff. -File for 303 involuntary commitment to be held tomorrow. -Recommend medications over objection, with an IM Zyprexa backup for refusal of oral medication. Involve outpatient treatment team to discuss ways to improve stability and compliance; consider long-acting injectable antipsychotic. -Order fasting labs for monitoring on an atypical antipsychotic once patient is more cooperative. 02/27 -The patient was retrained at his involuntary commitment hearing (303) this morning. -He has continuously and consistently refused psychiatric medications to date. However, today, when I explained that that a option that might become necessary in his case is medication over objection, and an intramuscular form, the patient said that he understood and that he would try medications that I prescribe. His initial preference would be olanzapine, but because olanzapine is not available in a long acting depot form, we would first like to try aripiprazole. He indicates that he is taken aripiprazole in the past and has been able to tolerate it, although he does not believe that it has been particularly helpful. -A trial dose of aripiprazole 15 mg by mouth, as a one-time dose, has been ordered and he assessed for efficacy. 02/28 -Appears to be tolerating initiation of Abilify so far. Remains delusional, paranoid. May consider further titration tomorrow -Aricept discontinued at patient's request on 02/27/2019. The medication has not been demonstrated to be efficacious for cognitive impairment associated with long-standing schizophrenia however we should be vigilant for slowing of mentation following discontinuation. 03/01 Patient fixated and irrational regarding access to clothing item as above today. Hospital environment becoming incorporated and delusions. Consider possibility that the aripiprazole is contributing to activation. We will increase to 20 mg tomorrow and also start Risperdal 1 mg p.o. twice daily as as needed. 03/02 - Continue with aripiprazole at 20mg daily, consider need for further titration - if tolerating and effective, eventual plan will be for conversion to Abilify Maintena - Pt has not yet utilized risperidone 03/03 - Increase aripiprazole to 25mg (equivalent to 30mg pill) and change to liquid formulation to decrease risk of cheeking/nonadherence, as patient does not believe he needs medication and had been noncompliant prior to hospitalization. - Fasting glucose and lipid profile ordered for tomorrow for monitoring on an atypical antipsychotic. - Private room due to psychosis, agitation, and inappropriate disrobing/sexual behavior. - Meeting with [facility] and [facility] staff when patient able to tolerate. 03/04 - Continue aripiprazole 25mg liquid (30mg pill equivalent) and continue to observe for improvement in thought process/content - consider conversion to Maintena if effective, versus trial of another agent if improvement remains limited - Fasting labs reviewed - all values WNL - Continue medically necessary private room - Request meeting with [facility] staff, in order to obtain details about patient's proximity to baseline 03/05 -Patient refusing liquid aripiprazole, but agrees to take the pill: Ordered 30 mg daily. -Schedule meeting with his [employer], [facility] and psych rehab staff. Consider involuntary outpatient commitment at the time of discharge. 03/06 -The patient has improved in that he is more reality based at this point. He continues to harbor fixed, systematized delusions, but is generally able to focus on reality based topics. -Although the patient tells me that he does not feel that aripiprazole has been effective, he is able to accept my opinion in the opinion of the staff that he has improved in response to aripiprazole. -The patient's main objection to aripiprazole oral solution is that he does not like the way it tastes, and within this context, he tells us that he is willing to accept Abilify Maintenaand requests that it be injected into his buttock. Abilify Maintena 300 mg IM ordered, and oral Abilify discontinued. We will resume oral Abilify if the patient subsequently changes his mind and refuses the injection. 03/07 resuming abilfiy oral given his refusal of FARAH form of abilify 03/08 is taking abilify po form but refusing abilify maintena form. advise close monitoring for potential of checking given pt's tendency to not want to take medications. 03/09 -The patient is flatly refusing to take aripiprazole in the form of Abilify Maintena. He is also been hesitant to take oral Abilify, but has been doing so. -The patient's lack of cooperation is thought possibly to be related to an un-expressed desire to not be discharged back to the community. He told me today that he left his meeting with his community providers after a few seconds because "just the side of them made me extremely anxious. My pulse elevated to 140." Later, he told me that he was still anxious about it and his pulse was "still around 130." The patient allowed me to take his pulse, and it was approximately 76. At that point he said, "did I say pulse? I meant systolic blood pressure." And when I pointed out that his systolic blood pressure of 130 is not considered to be a particular concern, he said "I mean diastolic." -Our hope had been that the patient would agree to accept a Depo form of medication. He was refusing Haldol Decanoate because of various side effects. Risperidone constant was ruled out as a first-line Depo medication because of the frequency of administration (the patient tends to get into power struggles over medications) and because he says that he is sensitive to "big needles." Invega would be an option, but currently the patient is being so uncooperative that our concern would be that he would cheek the oral tablets that we would have to give him first. Accordingly, the new strategy will be to discontinue Abilify, and resume olanzapine with olanzapine IM over objection if necessary. We will begin the olanzapine Zydis 20 mg at bedtime 03/10 -The patient took the prescribed dose of olanzapine Zydis 20 mg at bedtime last night. Today, he tells me that it "did not help at all." However, staff report that he has been somewhat more agreeable, more pleasant, and less paranoid today. -As he has with other providers, today he told me that I should have given him olanzapine 5 mg "to start", and I explained that he was already on olanzapine 20 mg when he came into the hospital and we know that he is able to tolerate that dose. He tells me that he did, in fact tolerate the dose and is not aware of any side effects, but, somewhat illogically, insisted that the dose was "too high for a starting dose." 03/11 - Continue current medication regimen at this time - olanzapine 20mg daily - Encourage participation in the milieu and in group programming as tolerated 03/12 -Continue current medication regimen. The patient's condition has not yet improved. -The patient does participate in select groups, but often tends to be disruptive. 03/13 -Today, the patient seems to be somewhat more cooperative and less frankly delusional. It was possible to engage in a mostly reality based conversation for 5 or 10 minutes at a time. Also, although he was unhappy with me when I refused to provide him with a dose of Valium for anxiety, he was able to remain pleasant and calm at this time, did not storm from the room." 03/14 and 03/15 -no change in medication will work on therapeutic alliance given patient is not participating 03/16 -304 involuntary commitment granted. -Patient remains completely uncooperative with treatment, refused his Zyprexa Zydis last evening, but then ultimately took it before he received the injection. I have a high suspicion for cheeking of antipsychotic medication, and we will continue to be vigilant with mouth checks, and work towards a long- acting injectable. 03/17 -Patient has been on Zyprexa 20 mg at bedtime for 1 week, with limited response. He is refusing to discuss other medication options. Per records, he has been prescribed up to 30 mg olanzapine in the past, so will increase his dose to this previously tolerated dose, as it is 1 of the few medications he has been willing to take. Continue IM backup for refusal, and Zyprexa Zydis formulation to decrease risk of cheeking. He is not compliant with mouth checks, but have asked staff to try to observe him for 10 minutes after taking the Zydis to ensure he is not spitting it out before it dissolves. 03/18 -Continue Zyprexa Zydis 30 mg at bedtime with IM backup. Consider switch to a different medication (?oral paliperidone with IM backup) if irritability and agitation continues. He has tried virtually every atypical antipsychotic and reports none of them were effective (although some trials were short due to nonadherence) and has a history of dystonia on haloperidol. Clozapine would be a reasonable choice, but he has been unwilling to even discuss medication options. -Consider some component of cognitive decline which could be contributing to his worsening presentation and will need to be monitored and worked up further once he is more psychiatrically stable. -Refer to [facility] in the event that he does not improve and long-term inpatient treatment is needed. 03/19 - Proceed with [facility] referral. 03/20 - Continue current medication regimen; patient refused EKG and CXR yesterday - refused again today - Continue attempts to gather information to make a referral to [facility] 03/23 - Proceed with [facility] referral - patient has refused EKG and CXR for multiple attempts. We will send most recent tests available - Continue current medication regimen at this time 03/24 -Attempted to hold diversion meeting with his outpatient [facility], residential director, and the [facility]; patient refused to attend or participate in the meeting. 03/25 - 03/26 - Continue treatment plan as above - no change in patient's condition and he remains unwilling to participate meaningfully in treatment - Continue with [facility] referral 03/27 -The patient has been informed that the plan at this point is to transfer him to [facility] for long-term inpatient psychiatric treatment, given his refusal to adhere with treatment and his associated behaviors in the community when not adherent with psychiatric treatment. -The patient continues to refuse mouth checks after given dosages of Zyprexa Zydis, and there is some question regarding whether he is actually ingesting this medication. He also would not cooperate with laboratory testing. -There has been a question regarding the patient's cognitive functions, and prior to admission he had been taking Aricept. When he does cooperate with this, I have not seen evidence of any substantial cognitive impairment. He may have mild cognitive impairment, but does not fully cooperate with formal cognitive assessment. He easily recalls the names of his providers, the names of the medications he is taking, the names of the various infectious agents that he believes are causing some of his psychiatric symptoms, the names of certain chemicals that he believes will rid him of the reference to infections, and is able to discuss current events such as recent news items. His assertion that he wants to return to his apartment in the community seems belied by his steadfast refusal to cooperate with those interventions I would make it possible for him to return, and there is some suspicion that although the patient remains floridly psychotic he may also be intentionally sabotaging discharge. 03/28 - 03/30 -There is been no exchange mechanic the past 2 weeks, and long-term inpatient treatment at the [facility] is indicated. 8/13 - Continue current medication regimen - Pt briefly verbalized willingness for FARAH, but was not agreeable to medication adjustments to allow for this to be possible - If he should change his mind; recommendation is for trial of Invega orally to establish tolerability, then consideration for Invega Sustenna - unwilling for this today 04/01 - 04/03 - Continue current medication regimen - Continues to refuse FARAH, will continue discussion daily as this is the reported preference of his CRR 04/04 -Questionable positive PPD measuring 13 mm but history of confinement places him at higher risk. Patient refused chest x-ray today but we will reapproach. No active symptoms of infection. Order for sputum culture and smear today for confirmation. 04/05 -PPD now appears negative. Would suggest follow through with sputum smear and culture for confirmation as previously ordered -Continue treatment plan as above (2) Substance abuse: 02/25 - Pt has reported history of substance abuse, and recommendation has consistently been for avoidance of substances with significant abuse potential. - PDMP queried - most recent prescriptions below - lorazepam 0.5mg #60 tabs for 30 day supply - Dr. Alves - filled 02/12/2019 - alprazolam 0.5mg #90 tabs for 30 day supply - Dr. Lopez - filled 01/16/2019 - temazepam 30mg #30 caps for 30 day supply - Dr. Lopez - filled 01/16/2019 - Will continue lorazepam 0.5mg BID prn on admission, as only medication that is seemingly active - toxicology screen is negative for benzodiazepines, which questions if he has been taking the medication appropriately - Ideally will taper and discontinue the lorazepam, as recommendation remains that substances with abuse potential be avoided 02/26 -The patient's outpatient providers, during a meeting this morning, report that the patient tends to successfully convince physicians to prescribe benzodiazepines for him and that, in the past, he has abused him to the degree that he is practically obtunded. 02/27 -A repeat check of the PDMP reveals that the patient is consistently being prescribed lorazepam 0.5 mg twice daily (number 60/month) by a Dr. Brent Alves. He is also being prescribed alprazolam 0.[address] mg [address] Jfef Lopez, with the most recent previous prescription of alprazolam being on 01/16/[address] Lopez also prescribed temazepam 30 mg capsules #30 on 01/16/2019. According to his residential providers, no temazepam capsules were found among the patient's belongings. His most recent prescription for lorazepam 0.5 mg tablets was filled on 02/12/2019. 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 In the past, he reportedly has used clonazepam and temazepam. -I advised the patient that because of his history of misuse of benzodiazepines we would not be prescribing benzodiazepines during his hospital stay. An as needed order for lorazepam has not been used during hospital stay, and I discontinued the order today. 03/02 - Will need to coordinate care with his PCP and outpatient psychiatrist prior to discharge regarding the above. 03/04 - Charge nurse spoke with the above offices regarding concern for continued benzodiazepine prescriptions - Records will be faxed to their offices on discharge, as all benzodiazepines were discontinued during this hospitalization 03/06 -The patient did not request benzodiazepines and did not complain of anxiety today. I suggested to him that perhaps Abilify is also helping with anxiety in his case, and he responded by saying "perhaps." 03/09 -Today, the patient is insisting that what he needs is "benzodiazepines," and explains that the reason he "needs" benzodiazepines is that he has "benzodiazepine receptors," and that he is the only medications that work. He is unable to process warnings about the risks of benzodiazepines in the elderly, including increased risk of falls and mortality. Clearly, the patient is seeking benzodiazepines and has no insight into the associated risks. He also insists that he has never had trouble with benzodiazepines in the past, although there is well-documented of this. 03/10 -Today, the patient repeated his insistence that he needs benzodiazepines and that benzodiazepines are the only medications that work because he has "benzodiazepine receptors." After being told that everyone has central nervous system receptors to which benzodiazepines may attach, he replied, "That may be, but some of people need to have benzodiazepines forearm benzodiazepine receptors. 03/12 -Continues to request Benzodiazepines. 03/13 -Requests Valium for his "benzodiazepines receptors." 03/27 -Refuses to cooperate with assessment today, but has recently told staff that he needs "either Valium or Ativan." -The patient apparently has no working insight into his history of abuse of prescription medications (benzodiazepines). (3) Hypertension: 02/25 - Continue home dose of clonidine 0.1mg qHS 03/01 Watch mildly elevated blood pressures as patient has been refusing clonidine 03/03 - BP normal past two days, and low today 03/10 -The patient's blood pressure today was 136/73. His pulse was 71 03/14 - elevated BP it is not urgent but will need monitored. 03/15 - BP WNL 03/26 - BP continues to be WNL 04/02 - BP remains within normal limits; continue daily vitals per standard admission orders - Will consider acute phase of this problem resolved at this time Inventory Assets Strengths: -Intelligence. Support of community providers. Well educated. Needs: Resume symptom-stabilizing medication regimen, coordinate care with residential Risk Factors Assessment Male: Yes : Yes Do You Have Access To A Gun?: No Health Problems: Yes Mental Health Diagnoses: Yes Substance Use Disorders: Yes Protective Factors Assessment Mandaen Beliefs: No : No Responsible for Young Children: No Employed: No Stable Relationships: No Supportive Family: No Good Rapport with Provider: No Interval History Identifying Information SCOTT ROBERTO is a 73-year-old M who currently lives at a [facility] in [place]. Pt has a history of schizophrenia and is known to our unit from several previous admissions, most recently in 09/2016. Pt and was admitted on 02/24/19 16:40 on a 302 involuntary commitment for exacerbation of schizophrenia and heightened paranoia resulting in belief he needed to hide in a dumpster to seek refuge from impending bombings. Pt was found by [facility] staff and brought to the ED by police. He is on a 304 involuntary commitment as of 03/16/19. Chief Complaint "I am okay". Review of Systems Notes Complains of long fingernails. Denies pain Sleep Information Total Hours of Sleep: 7.75 Sleep Comments: awake at 0145 - ate cereals with juice then went back to bed/sleep Meal Information Percent Meal Consumed - Breakfast: 100 Percent Meal Consumed - Lunch: 100 Percent Meal Consumed - Dinner: 100 Nutrition Comment: per meal record Subjective Subjective Patient was seen & assessed and interval progress reviewed with treatment team. No acute events overnight. Patient described as relatively pleasant over the course of day yesterday. To review, his PPD placed on the was borderline yesterday at 13 mm considering his history of confinement however it is almost unobservable today with area of induration measuring less than 10 mm which I would now consider a negative result. He has refused the chest x-ray and could not provide a sputum sample this morning. He requested his fingernails be trimmed which was done by myself without incident today. He has a meeting with [facility] tomorrow. Attending some groups with minimal participation. States his mood is "okay." He again perseverates on testing for toxoplasmosis. He now reports that he took large amounts of folic acid in recent months followed by ravindra he to attempt to treat this disorder which he believes may be the nidus of his schizophrenia. He requests testing to see if his treatment was effective. Physical Exam Psychiatric Orientation: alert and + guarded Apperance: appropriately dressed Eye Contact: good eye contact Motor Behavior: steady gait and station Speech: normal rate/rhythm/volume of speech Affect: no depressed affect and no angry affect okay Thought Process: + perseveration Thought Content: + preoccupation Suicidal Thoughts: + reports suicidal thoughts Insight: + poor insight Judgement: + limited judgement Vital Signs (Past 24 Hours) Last Vital Signs Temp 36.6 C 04/05/19 06:43 Pulse 76 04/05/19 06:44 Resp 18 04/05/19 06:43 BP 116/68 04/05/19 06:44 Pulse Ox 96 02/24/19 08:10 Skin PPD now only minimally indurated and measures less than 10mm in diameter Results & Data Current Inpatient Medications Current Inpatient Medications: Current Inpatient Medications Acetaminophen (Tylenol) 650 mg PO Q4H PRN PRN Reason: Headache or Minor Fever Stop: 04/24/19 08:39 Al Hydrox/Mg Hydrox/Simethicone (Maalox) 30 ml PO Q4H PRN PRN Reason: GI Upset Stop: 04/24/19 08:39 Benztropine Mesylate (Cogentin) 0.5 mg PO BID PRN PRN Reason: dystonia Stop: 04/24/19 08:39 Bismuth Subsalicylate (Kaopectate) 15 ml PO PRN PRN PRN Reason: Loose Stool Stop: 04/24/19 08:39 Clonidine HCl (Catapres) 0.1 mg PO HS MAG Stop: 04/24/19 21:59 Last Admin: 04/04/19 21:16 Dose: 0.1 mg Documented by: Cyanocobalamin (Vitamin B-12) 500 mcg PO DAILY MAG Stop: 04/24/19 08:59 Last Admin: 04/05/19 09:32 Dose: 500 mcg Documented by: Hydroxyzine HCl (Vistaril) 50 mg PO HSZ PRN PRN Reason: Insomnia Stop: 04/24/19 08:44 Hydroxyzine HCl (Vistaril) 25 mg PO Q4H PRN PRN Reason: Anxiety Stop: 04/24/19 08:44 Magnesium Citrate (Citrate) 148 ml PO BID PRN PRN Reason: constipation Stop: 04/22/19 20:59 Last Admin: 03/23/19 17:19 Dose: 148 ml Documented by: Magnesium Hydroxide (Milk Of Magnesia) 30 ml PO DAILY PRN PRN Reason: Heartburn Stop: 04/24/19 08:44 Magnesium Oxide (Mag-Ox) 400 mg PO DAILY MAG Stop: 04/24/19 08:59 Last Admin: 04/05/19 09:31 Dose: 400 mg Documented by: Miscellaneous (Remove Nicoderm Patch) 1 ea N/A HS MAG Stop: 04/24/19 21:59 Last Admin: 04/04/19 21:21 Dose: Not Given Documented by: Multivitamins (Multivitamin Tab) 1 tab PO DAILY MAG Stop: 04/24/19 08:59 Last Admin: 04/05/19 09:32 Dose: 1 tab Documented by: Nicotine (Nicoderm Cq) 14 mg TD QAM MAG Stop: 04/24/19 08:59 Last Admin: 04/05/19 09:31 Dose: Not Given Documented by: Olanzapine (Zyprexa) 10 mg IM HS PRN PRN Reason: Undecided Stop: 04/24/19 08:44 Olanzapine (Zyprexa Zydis Od) 30 mg PO HS MAG Stop: 04/24/19 21:59 Last Admin: 04/04/19 21:16 Dose: 30 mg Documented by: Pyridoxine HCl (Vitamin B-6) 100 mg PO DAILY MAG Stop: 04/24/19 08:59 Last Admin: 04/05/19 09:32 Dose: 100 mg Documented by: Risperidone (Risperdal M) 1 mg PO BID PRN PRN Reason: psychosis Stop: 04/24/19 08:44 Sodium Chloride ([place] Nasal) 1 - 2 sprays NA PRN PRN PRN Reason: Nasal Dryness/Congestion Stop: 04/24/19 08:44 Mental Health & Subst Abuse Tx Therapist Name of Therapist: [employer] Name of [employer]: Shruti Resendez Tasiajose Phone Number for [employer]: Case Management Appointment Comment: [phone], [place] [address] Post Discharge Appointments Primary Care Physician Name Of Family Doctor: Dr. Lopez Contact Information Discharge Discharge Address: [address] [place] [id number] CPT Code CPT Code 29655 (1) Schizophrenia Schizophrenia type: paranoid schizophrenia Qualified Code(s): F20.0 - Paranoid schizophrenia (2) Hypertension Hypertension type: essential hypertension Qualified Code(s): I10 - Essential (primary) hypertension
[2019-04-05] MEDS: cloNIDine HCL 0.1 MG TAB PO SCH (20:38)
[2019-04-05] MEDS: OLANZAPINE ZYDIS 10 MG ORALLY DIS. TAB PO SCH (20:39)
[2019-04-06] MEDS: PYRIDOXINE HCL 50 MG TAB PO SCH (08:59)
[2019-04-06] MEDS: CYANOCOBALAMIN 500 MCG TABLET (VITAMIN B-12) PO SCH (08:59)
[2019-04-06] MEDS: NICOTINE 14 MG/24 HR PATCH TD SCH (08:59)
[2019-04-06] MEDS: MAGNESIUM OXIDE 400 MG TAB PO SCH (08:59)
[2019-04-06] MEDS: MULTIVITAMIN TAB PO SCH (08:59)
--- NOTE | 2019-04-06 09:30 | Psychiatric Progress Note ---
Date of Service April 06, 2019 Impression / Recommendations Impression 73-year-old male with schizophrenia who lives at the [facility] and was admitted involuntarily on 02/24/2019 with delusions, hallucinations, irritability and erratic behavior after rapid decompensation 1-2 weeks after he stopped taking his antipsychotic. He was found in a dumpster, floridly delusional, and was combative with [facility] staff. He refused resumption of olanzapine, but ultimately agreed to take aripiprazole. It initially appeared that he was responding favorably, although not completely, to the addition of aripiprazole. Because of the patient's long history of dangerous behaviors in the community associated with nonadherence with psychiatric medications, the a depo antipsychotic medication was recommended, and he initially agreed to Abimichelle Damona; however, refused it when staff attempted to administer the injection (03/13/2019), and subsequently became much more oppositional and hostile towards staff, refusing to speak with a psychiatrist or other [facility] staff since that time. He returned to [facility], which he reports he is compliant with despite often refusing mouth checks. He refused to participate in a diversion meeting with his senior living director and outpatient manager case on 03/24/19, but attended and participated in a second follow-up meeting on 03/31/2019. Another meeting is scheduled for today. He continues to verbalize that he is unwilling to proceed with subsequent oral medication adjustments to allow for conversion to an FARAH. He has a clear history of dangerous behaviors during periods of nonadherence with medications in the community, and inpatient psychiatric hospitalization remains the least intensive, least restrictive level of care consistent with the patient's clinical and safety needs. He was referred to [facility] 03/23/2019. (1) Schizophrenia: 02/25 - Continue home medication regimen - as refusing offerings of his antipsychotic, will likely require olanzapine IM (or alternative agent) over objection, given clear evidence of paranoia and delusional thought process - previously stabilized on this medication - Pt agreeable to taking all other medications, with exception of an tipsychotic as mentioned above - Admitted to a locked inpatient behavioral health unit, on q15 minute safety checks - Encourage medication initiation/adjustments as indicated - Encourage participation in group and recreational therapies - Gather collateral information from outpatient providers and senior living staff - Suggest family meeting to involve outpatient supports in safety planning - Reschedule appropriate aftercare appointments 02/26 -Patient indicates willingness to sign a release for the [facility], will get collateral from their staff. -File for 303 involuntary commitment to be held tomorrow. -Recommend medications over objection, with an IM Zyprexa backup for refusal of oral medication. Involve outpatient treatment team to discuss ways to improve stability and compliance; consider long-acting injectable antipsychotic. -Order fasting labs for monitoring on an atypical antipsychotic once patient is more cooperative. 02/27 -The patient was retrained at his involuntary commitment hearing (303) this morning. -He has continuously and consistently refused psychiatric medications to date. However, today, when I explained that that a option that might become necessary in his case is medication over objection, and an intramuscular form, the patient said that he understood and that he would try medications that I prescribe. His initial preference would be olanzapine, but because olanzapine is not available in a long acting depot form, we would first like to try aripiprazole. He indicates that he is taken aripiprazole in the past and has been able to tolerate it, although he does not believe that it has been particularly helpful. -A trial dose of aripiprazole 15 mg by mouth, as a one-time dose, has been ordered and he assessed for efficacy. 02/28 -Appears to be tolerating initiation of Abilify so far. Remains delusional, paranoid. May consider further titration tomorrow -Aricept discontinued at patient's request on 02/27/2019. The medication has not been demonstrated to be efficacious for cognitive impairment associated with long-standing schizophrenia however we should be vigilant for slowing of mentation following discontinuation. 03/01 Patient fixated and irrational regarding access to clothing item as above today. Hospital environment becoming incorporated and delusions. Consider possibility that the aripiprazole is contributing to activation. We will increase to 20 mg tomorrow and also start Risperdal 1 mg p.o. twice daily as as needed. 03/02 - Continue with aripiprazole at 20mg daily, consider need for further titration - if tolerating and effective, eventual plan will be for conversion to Abilify Maintena - Pt has not yet utilized risperidone 03/03 - Increase aripiprazole to 25mg (equivalent to 30mg pill) and change to liquid formulation to decrease risk of cheeking/nonadherence, as patient does not believe he needs medication and had been noncompliant prior to hospitalization. - Fasting glucose and lipid profile ordered for tomorrow for monitoring on an atypical antipsychotic. - Private room due to psychosis, agitation, and inappropriate disrobing/sexual behavior. - Meeting with [facility] and [facility] staff when patient able to tolerate. 03/04 - Continue aripiprazole 25mg liquid (30mg pill equivalent) and continue to observe for improvement in thought process/content - consider conversion to Maintena if effective, versus trial of another agent if improvement remains limited - Fasting labs reviewed - all values WNL - Continue medically necessary private room - Request meeting with [facility] staff, in order to obtain details about patient's proximity to baseline 03/05 -Patient refusing liquid aripiprazole, but agrees to take the pill: Ordered 30 mg daily. -Schedule meeting with his manager case, [facility] and psych rehab staff. Consider involuntary outpatient commitment at the time of discharge. 03/06 -The patient has improved in that he is more reality based at this point. He continues to harbor fixed, systematized delusions, but is generally able to focus on reality based topics. -Although the patient tells me that he does not feel that aripiprazole has been effective, he is able to accept my opinion in the opinion of the staff that he has improved in response to aripiprazole. -The patient's main objection to aripiprazole oral solution is that he does not like the way it tastes, and within this context, he tells us that he is willing to accept Abilify Maintenaand requests that it be injected into his buttock. Abilify Maintena 300 mg IM ordered, and oral Abilify discontinued. We will resume oral Abilify if the patient subsequently changes his mind and refuses the injection. 03/07 resuming abilfiy oral given his refusal of FARAH form of abilify 03/08 is taking abilify po form but refusing abilify maintena form. advise close monitoring for potential of checking given pt's tendency to not want to take medications. 03/09 -The patient is flatly refusing to take aripiprazole in the form of Abilify Maintena. He is also been hesitant to take oral Abilify, but has been doing so. -The patient's lack of cooperation is thought possibly to be related to an un-expressed desire to not be discharged back to the community. He told me today that he left his meeting with his community providers after a few seconds because "just the side of them made me extremely anxious. My pulse elevated to 140." Later, he told me that he was still anxious about it and his pulse was "still around 130." The patient allowed me to take his pulse, and it was approximately 76. At that point he said, "did I say pulse? I meant systolic blood pressure." And when I pointed out that his systolic blood pressure of 130 is not considered to be a particular concern, he said "I mean diastolic." -Our hope had been that the patient would agree to accept a Depo form of medication. He was refusing Haldol Decanoate because of various side effects. Risperidone constant was ruled out as a first-line Depo medication because of the frequency of administration (the patient tends to get into power struggles over medications) and because he says that he is sensitive to "big needles." Invega would be an option, but currently the patient is being so uncooperative that our concern would be that he would cheek the oral tablets that we would have to give him first. Accordingly, the new strategy will be to discontinue Abilify, and resume olanzapine with olanzapine IM over objection if necessary. We will begin the olanzapine Zydis 20 mg at bedtime 03/10 -The patient took the prescribed dose of olanzapine Zydis 20 mg at bedtime last night. Today, he tells me that it "did not help at all." However, staff report that he has been somewhat more agreeable, more pleasant, and less paranoid today. -As he has with other providers, today he told me that I should have given him olanzapine 5 mg "to start", and I explained that he was already on olanzapine 20 mg when he came into the hospital and we know that he is able to tolerate that dose. He tells me that he did, in fact tolerate the dose and is not aware of any side effects, but, somewhat illogically, insisted that the dose was "too high for a starting dose." 03/11 - Continue current medication regimen at this time - olanzapine 20mg daily - Encourage participation in the milieu and in group programming as tolerated 03/12 -Continue current medication regimen. The patient's condition has not yet improved. -The patient does participate in select groups, but often tends to be disruptive. 03/13 -Today, the patient seems to be somewhat more cooperative and less frankly delusional. It was possible to engage in a mostly reality based conversation for 5 or 10 minutes at a time. Also, although he was unhappy with me when I refused to provide him with a dose of Valium for anxiety, he was able to remain pleasant and calm at this time, did not storm from the room." 03/14 and 03/15 -no change in medication will work on therapeutic alliance given patient is not participating 03/16 -304 involuntary commitment granted. -Patient remains completely uncooperative with treatment, refused his Zyprexa Zydis last evening, but then ultimately took it before he received the injection. I have a high suspicion for cheeking of antipsychotic medication, and we will continue to be vigilant with mouth checks, and work towards a long- acting injectable. 03/17 -Patient has been on Zyprexa 20 mg at bedtime for 1 week, with limited response. He is refusing to discuss other medication options. Per records, he has been prescribed up to 30 mg olanzapine in the past, so will increase his dose to this previously tolerated dose, as it is 1 of the few medications he has been willing to take. Continue IM backup for refusal, and Zyprexa Zydis formulation to decrease risk of cheeking. He is not compliant with mouth checks, but have asked staff to try to observe him for 10 minutes after taking the Zydis to ensure he is not spitting it out before it dissolves. 03/18 -Continue Zyprexa Zydis 30 mg at bedtime with IM backup. Consider switch to a different medication (?oral paliperidone with IM backup) if irritability and agitation continues. He has tried virtually every atypical antipsychotic and reports none of them were effective (although some trials were short due to nonadherence) and has a history of dystonia on haloperidol. Clozapine would be a reasonable choice, but he has been unwilling to even discuss medication options. -Consider some component of cognitive decline which could be contributing to his worsening presentation and will need to be monitored and worked up further once he is more psychiatrically stable. -Refer to [facility] in the event that he does not improve and long-term inpatient treatment is needed. 03/19 - Proceed with [facility] referral. 03/20 - Continue current medication regimen; patient refused EKG and CXR yesterday - refused again today - Continue attempts to gather information to make a referral to [facility] 03/23 - Proceed with [facility] referral - patient has refused EKG and CXR for multiple attempts. We will send most recent tests available - Continue current medication regimen at this time 03/24 -Attempted to hold diversion meeting with his outpatient [facility], senior living director, and the [facility] MH/ID; patient refused to attend or participate in the meeting. 03/25 - 03/26 - Continue treatment plan as above - no change in patient's condition and he remains unwilling to participate meaningfully in treatment - Continue with [facility] referral 03/27 -The patient has been informed that the plan at this point is to transfer him to [facility] for long-term inpatient psychiatric treatment, given his refusal to adhere with treatment and his associated behaviors in the community when not adherent with psychiatric treatment. -The patient continues to refuse mouth checks after given dosages of Zyprexa Zydis, and there is some question regarding whether he is actually ingesting this medication. He also would not cooperate with laboratory testing. -There has been a question regarding the patient's cognitive functions, and prior to admission he had been taking Aricept. When he does cooperate with this, I have not seen evidence of any substantial cognitive impairment. He may have mild cognitive impairment, but does not fully cooperate with formal cognitive assessment. He easily recalls the names of his providers, the names of the medications he is taking, the names of the various infectious agents that he believes are causing some of his psychiatric symptoms, the names of certain chemicals that he believes will rid him of the reference to infections, and is able to discuss current events such as recent news items. His assertion that he wants to return to his apartment in the community seems belied by his steadfast refusal to cooperate with those interventions I would make it possible for him to return, and there is some suspicion that although the patient remains floridly psychotic he may also be intentionally sabotaging discharge. 03/28 - 03/30 -There is been no construction equipment overhauler the past 2 weeks, and long-term inpatient treatment at the [facility] is indicated. 03/31 - Continue current medication regimen - Pt briefly verbalized willingness for FARAH, but was not agreeable to medication adjustments to allow for this to be possible - If he should change his mind; recommendation is for trial of Invega orally to establish tolerability, then consideration for Invega Sustenna - unwilling for this today 04/01 - 04/03 - Continue current medication regimen - Continues to refuse FARAH, will continue discussion daily as this is the reported preference of his [facility] 04/04 -Questionable positive PPD measuring 13 mm but history of confinement places him at higher risk. Patient refused chest x-ray today but we will reapproach. No active symptoms of infection. Order for sputum culture and smear today for confirmation. 04/05 -PPD now appears negative. Would suggest follow through with sputum smear and culture for confirmation as previously ordered -Continue treatment plan as above 04/06 - PPD reportedly negative, patient unable to follow-up with sputum smear - therefore discontinued - Continue medication regimen as above - unwilling to discuss conversion to an FARAH - Meeting today with representation from [facility] to discuss discharge planning (2) Substance abuse: 02/25 - Pt has reported history of substance abuse, and recommendation has c onsistently been for avoidance of substances with significant abuse potential. - PDMP queried - most recent prescriptions below - lorazepam 0.5mg #60 tabs for 30 day supply - Dr. Alves - filled - alprazolam 0.5mg #90 tabs for 30 day supply - Dr. Lopez - filled 01/16/2019 - temazepam 30mg #30 caps for 30 day supply - Dr. Lopez - filled 01/16/2019 - Will continue lorazepam 0.5mg BID prn on admission, as only medication that is seemingly active - toxicology screen is negative for benzodiazepines, which questions if he has been taking the medication appropriately - Ideally will taper and discontinue the lorazepam, as recommendation remains that substances with abuse potential be avoided 02/26 -The patient's outpatient providers, during a meeting this morning, report that the patient tends to successfully convince physicians to prescribe benzodiazepines for him and that, in the past, he has abused him to the degree that he is practically obtunded. 02/27 -A repeat check of the PDMP reveals that the patient is consistently being prescribed lorazepam 0.5 mg twice daily (number 60/month) by a Dr. Brent Alves. He is also being prescribed alprazolam 0.[address] mg [address] Jeff Lopez, with the most recent previous prescription of alprazolam being on 01/16/[address] Lopez also prescribed temazepam 30 mg capsules #30 on 01/16/2019. According to his residential providers, no temazepam capsules were found among the patient's belongings. His most recent prescription for lorazepam 0.5 mg tablets was filled on 02/12/2019. 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 In the past, he reportedly has used clonazepam and temazepam. -I advised the patient that because of his history of misuse of benzodiazepines we would not be prescribing benzodiazepines during his hospital stay. An as needed order for lorazepam has not been used during hospital stay, and I discontinued the order today. 03/02 - Will need to coordinate care with his PCP and outpatient psychiatrist prior to discharge regarding the above. 03/04 - Charge nurse spoke with the above offices regarding concern for continued benzodiazepine prescriptions - Records will be faxed to their offices on discharge, as all benzodiazepines were discontinued during this hospitalization 03/06 -The patient did not request benzodiazepines and did not complain of anxiety today. I suggested to him that perhaps Abilify is also helping with anxiety in his case, and he responded by saying "perhaps." 03/09 -Today, the patient is insisting that what he needs is "benzodiazepines," and explains that the reason he "needs" benzodiazepines is that he has "benzodiazepine receptors," and that he is the only medications that work. He is unable to process warnings about the risks of benzodiazepines in the elderly, including increased risk of falls and mortality. Clearly, the patient is seeking benzodiazepines and has no insight into the associated risks. He also insists that he has never had trouble with benzodiazepines in the past, although there is well-documented of this. 03/10 -Today, the patient repeated his insistence that he needs benzodiazepines and that benzodiazepines are the only medications that work because he has "benzodiazepine receptors." After being told that everyone has central nervous system receptors to which benzodiazepines may attach, he replied, "That may be, but some of people need to have benzodiazepines forearm benzodiazepine retail center receptionist tors. 03/12 -Continues to request Benzodiazepines. 03/13 -Requests Valium for his "benzodiazepines receptors." 03/27 -Refuses to cooperate with assessment today, but has recently told staff that he needs "either Valium or Ativan." -The patient apparently has no working insight into his history of abuse of prescription medications (benzodiazepines). (3) Hypertension: 02/25 - Continue home dose of clonidine 0.1mg qHS 03/01 Watch mildly elevated blood pressures as patient has been refusing clonidine 03/03 - BP normal past two days, and low today 03/10 -The patient's blood pressure today was 136/73. His pulse was 71 03/14 - elevated BP it is not urgent but will need monitored. 03/15 - BP WNL 03/26 - BP continues to be WNL 04/02 - BP remains within normal limits; continue daily vitals per standard admission order set - Will consider acute phase of this problem resolved at this time Inventory Assets Strengths: -Intelligence. Support of community providers. Well educated. Needs: Resume symptom-stabilizing medication regimen, coordinate care with senior living Risk Factors Assessment Male: Yes : Yes Do You Have Access To A Gun?: No Health Problems: Yes Mental Health Diagnoses: Yes Substance Use Disorders: Yes Protective Factors Assessment Anabaptism Beliefs: No : No Responsible for Young Children: No Employed: No Stable Relationships: No Supportive Family: No Good Rapport with Provider: No Interval History Identifying Information SCOTT ROBERTO is a 73-year-old M who currently lives at a [facility] in [place]. Pt has a history of schizophrenia and is known to our unit from several previous admissions, most recently in 09/2016. Pt and was admitted on 02/24/19 16:40 on a 302 involuntary commitment for exacerbation of schizophrenia and heightened paranoia resulting in belief he needed to hide in a dumpster to seek refuge from impending bombings. Pt was found by [facility] staff and brought to the ED by police. He is on a 304 involuntary commitment as of 03/16/19. Chief Complaint "I'm fine. We'll sit here and talk." Review of Systems Notes Pt somewhat uncooperative with interview, therefore full review of systems was not obtained. He did not verbalize any acute physical complaints. Sleep Information Total Hours of Sleep: 8.5 Sleep Comments: awake at 0100-came out to the kitchen for cereals and juice then back to bed and sleep. Meal Information Percent Meal Consumed - Breakfast: 100 Percent Meal Consumed - Lunch: 100 Percent Meal Consumed - Dinner: 100 Nutrition Comment: per meal record Subjective Subjective Patient was seen & assessed and interval progress reviewed with treatment team. Staff report the patient had been attending and superficially participating in some groups over the weekend. His participation was limited to "Marnie" [regarding Marnie Rights] which he reportedly wrote on his safety plan and as his mood rating. Pt has a meeting this morning with representation from [facility] to discuss discharge planning. Patient was seen today to assess progress since admission. Pt was seen in the day area, after refusing to speak in the office or his room to allow for more privacy. Pt states the weekend went well and he denies concerns. He states "you'd have to check" when this provider asks about any conversations had with the weekend clinician. Pt was asked if they discussed the idea of an FARAH for medications, and he became silently and more visibly irritable. This provider shared that it seems he tolerated the injection for the PPD he agreed to - and this provider wondered if he was now more willing for injections, with the possibility of a [id number]-[id number] injection with Invega Trinza if agreeable. Pt continued to be silent and avoided eye contact. He only verbalized that he would be attending his meeting with the [facility] staff, and then refused additional questioning. This provider states she would follow-up with him after the meeting. Pt stated, "I want privacy from you please." The patient denied other needs or concerns from the weekend, and was asked to inform this provider of any questions throughout the day today. Physical Exam Psychiatric Orientation: alert, oriented to person and oriented to place; + uncooperative (but does at least participate in answering some questions) Apperance: appropriately dressed, appropriately groomed and appeared stated age Eye Contact: + fair eye contact (Initially demonstrated good eye contact, then avoided eye contact entirely ) Motor Behavior: steady gait and station and no abnormal motor movements (observed while sitting calmly in a chair) Speech: normal rate/rhythm/volume of speech Affect: + flat affect (during initial part of conversation) and + irritable affect (after the topic of FARAH was brought up) Mood: no depressed mood and no anxious mood "I'm fine." Thought Process: goal directed thought process and + concrete thought process Thought Content: + delusions (no delusional thought content verbalized, though likely still underlying) Cognition: attention grossly intact and language grossly intact Estimated Intelligence: consistent with education level Insight: + impaired insight Judgement: + impaired judgement Vital Signs (Past 24 Hours) Last Vital Signs Temp 36.7 C 04/06/19 06:44 Pulse 77 04/06/19 06:45 Resp 18 04/06/19 06:44 BP 115/78 04/06/19 06:45 Pulse Ox 96 02/24/19 08:10 Results & Data Current Inpatient Medications Current Inpatient Medications: Current Inpatient Medications Acetaminophen (Tylenol) 650 mg PO Q4H PRN PRN Reason: Headache or Minor Fever Stop: 04/24/19 08:39 Al Hydrox/Mg Hydrox/Simethicone (Maalox) 30 ml PO Q4H PRN PRN Reason: GI Upset Stop: 04/24/19 08:39 Benztropine Mesylate (Cogentin) 0.5 mg PO BID PRN PRN Reason: dystonia Stop: 04/24/19 08:39 Bismuth Subsalicylate (Kaopectate) 15 ml PO PRN PRN PRN Reason: Loose Stool Stop: 04/24/19 08:39 Clonidine HCl (Catapres) 0.1 mg PO HS MAG Stop: 04/24/19 21:59 Last Admin: 04/05/19 20:38 Dose: 0.1 mg Documented by: Cyanocobalamin (Vitamin B-12) 500 mcg PO DAILY MAG Stop: 04/24/19 08:59 Last Admin: 04/06/19 08:59 Dose: 500 mcg Documented by: Hydroxyzine HCl (Vistaril) 50 mg PO HSZ PRN PRN Reason: Insomnia Stop: 04/24/19 08:44 Hydroxyzine HCl (Vistaril) 25 mg PO Q4H PRN PRN Reason: Anxiety Stop: 04/24/19 08:44 Magnesium Citrate (Citrate) 148 ml PO BID PRN PRN Reason: constipation Stop: 04/22/19 20:59 Last Admin: 03/23/19 17:19 Dose: 148 ml Documented by: Magnesium Hydroxide (Milk Of Magnesia) 30 ml PO DAILY PRN PRN Reason: Heartburn Stop: 04/24/19 08:44 Magnesium Oxide (Mag-Ox) 400 mg PO DAILY MAG Stop: 04/24/19 08:59 Last Admin: 04/06/19 08:59 Dose: 400 mg Documented by: Miscellaneous (Remove Nicoderm Patch) 1 ea N/A HS MAG Stop: 04/24/19 21:59 Last Admin: 04/05/19 20:39 Dose: Not Given Documented by: Multivitamins (Multivitamin Tab) 1 tab PO DAILY MAG Stop: 04/24/19 08:59 Last Admin: 04/06/19 08:59 Dose: 1 tab Documented by: Nicotine (Nicoderm Cq) 14 mg TD QAM MAG Stop: 04/24/19 08:59 Last Admin: 04/06/19 08:59 Dose: Not Given Documented by: Olanzapine (Zyprexa) 10 mg IM HS PRN PRN Reason: Undecided Stop: 04/24/19 08:44 Olanzapine (Zyprexa Zydis Od) 30 mg PO HS MAG Stop: 04/24/19 21:59 Last Admin: 04/05/19 20:39 Dose: 30 mg Documented by: Pyridoxine HCl (Vitamin B-6) 100 mg PO DAILY MAG Stop: 04/24/19 08:59 Last Admin: 04/06/19 08:59 Dose: 100 mg Documented by: Risperidone (Risperdal M) 1 mg PO BID PRN PRN Reason: psychosis Stop: 04/24/19 08:44 Sodium Chloride ([place] Nasal) 1 - 2 sprays NA PRN PRN PRN Reason: Nasal Dryness/Congestion Stop: 04/24/19 08:44 Mental Health & Subst Abuse Tx Therapist Name of Therapist: Sammy Buying Agent Name of Buying Agent: Shruti Lopez Phone Number for Buying Agent: Case Management Appointment Comment: [address] , [place] [address] Post Discharge Appointments Primary Care Physician Name Of Family Doctor: Dr. Lopez Contact Information Discharge Discharge Address: [address] [place] [address], [place] [address] CPT Code CPT Code 45068 (1) Schizophrenia Schizophrenia type: paranoid schizophrenia Qualified Code(s): F20.0 - Paranoid schizophrenia (2) Hypertension Hypertension type: essential hypertension Qualified Code(s): I10 - Essential (primary) hypertension
[2019-04-06] MEDS: OLANZAPINE ZYDIS 10 MG ORALLY DIS. TAB PO SCH (20:33)
[2019-04-06] MEDS: cloNIDine HCL 0.1 MG TAB PO SCH (20:33)
[2019-04-07] MEDS: MULTIVITAMIN TAB PO SCH (07:31)
[2019-04-07] MEDS: MAGNESIUM OXIDE 400 MG TAB PO SCH (07:31)
[2019-04-07] MEDS: NICOTINE 14 MG/24 HR PATCH TD SCH (07:33)
[2019-04-07] MEDS: PYRIDOXINE HCL 50 MG TAB PO SCH (07:33)
[2019-04-07] MEDS: CYANOCOBALAMIN 500 MCG TABLET (VITAMIN B-12) PO SCH (07:33)
--- NOTE | 2019-04-07 11:09 | Psychiatric Progress Note ---
Date of Service April 07, 2019 Impression / Recommendations Impression 73-year-old male with schizophrenia who lives at the [facility] and was admitted involuntarily on 02/24/2019 with delusions, hallucinations, irritability and erratic behavior after rapid decompensation 1-2 weeks after he stopped taking his antipsychotic. He was found in a dumpster, floridly delusional, and was combative with [facility] staff. He refused resumption of olanzapine, but ultimately agreed to take aripiprazole. It initially appeared that he was responding favorably, although not completely, to the addition of aripiprazole. Because of the patient's long history of dangerous behaviors in the community associated with nonadherence with psychiatric medications, the a depo antipsychotic medication was recommended, and he initially agreed to Madie Aleman; however, refused it when staff attempted to administer the injection (03/13/2019), and subsequently became much more oppositional and hostile towards staff, refusing to speak with a psychiatrist or other [facility] staff since that time. He returned to [facility], which he reports he is compliant with despite often refusing mouth checks. He refused to participate in a diversion meeting with his snf director and outpatient returned case inspector on 03/24/19, but attended and participated in a second follow-up meeting on 03/31/2019. Another meeting is scheduled for today. He continues to verbalize that he is unwilling to proceed with subsequent oral medication adjustments to allow for conversion to an FARAH. He has a clear history of dangerous behaviors during periods of nonadherence with medications in the community, and inpatient psychiatric hospitalization remains the least intensive, least restrictive level of care consistent with the patient's clinical and safety needs. He was referred to [facility] 03/23/2019; accepted on 04/02/19 and bed date is pending. (1) Schizophrenia: 02/25 - Continue home medication regimen - as refusing offerings of his antipsychotic, will likely require olanzapine IM (or alternative agent) over objection, given clear evidence of paranoia and delusional thought process - previously stabilized on this medication - Pt agreeable to taking all other medications, with exception of antipsychotic as mentioned above - Admitted to a locked inpatient behavioral health unit, on q15 minute safety checks - Encourage medication initiation/adjustments as indicated - Encourage participation in group and recreational therapies - Gather collateral information from outpatient providers and snf staff - Suggest family meeting to involve outpatient supports in safety planning - Reschedule appropriate aftercare appointments 02/26 -Patient indicates willingness to sign a release for the [facility] snf, will get collateral from their staff. -File for 303 involuntary commitment to be held tomorrow. -Recommend medications over objection, with an IM Zyprexa backup for refusal of oral medication. Involve outpatient treatment team to discuss ways to improve stability and compliance; consider long-acting injectable antipsychotic. -Order fasting labs for monitoring on an atypical antipsychotic once patient is more cooperative. 02/27 -The patient was retrained at his involuntary commitment hearing (303) this morning. -He has continuously and consistently refused psychiatric medications to date. However, today, when I explained that that a option that might become necessary in his case is medication over objection, and an intramuscular form, the patient said that he understood and that he would try medications that I pre scribe. His initial preference would be olanzapine, but because olanzapine is not available in a long acting depot form, we would first like to try aripiprazole. He indicates that he is taken aripiprazole in the past and has been able to tolerate it, although he does not believe that it has been particularly helpful. -A trial dose of aripiprazole 15 mg by mouth, as a one-time dose, has been ordered and he assessed for efficacy. 02/28 -Appears to be tolerating initiation of Abilify so far. Remains delusional, paranoid. May consider further titration tomorrow -Aricept discontinued at patient's request on 02/27/2019. The medication has not been demonstrated to be efficacious for cognitive impairment associated with long-standing schizophrenia however we should be vigilant for slowing of mentation following discontinuation. 03/01 Patient fixated and irrational regarding access to clothing item as above today. Hospital environment becoming incorporated and delusions. Consider pos sibility that the aripiprazole is contributing to activation. We will increase to 20 mg tomorrow and also start Risperdal 1 mg p.o. twice daily as as needed. 03/02 - Continue with aripiprazole at 20mg daily, consider need for further titration - if tolerating and effective, eventual plan will be for conversion to Abilify Maintena - Pt has not yet utilized risperidone 03/03 - Increase aripiprazole to 25mg (equivalent to 30mg pill) and change to liquid formulation to decrease risk of cheeking/nonadherence, as patient does not believe he needs medication and had been noncompliant prior to hosp italization. - Fasting glucose and lipid profile ordered for tomorrow for monitoring on an atypical antipsychotic. - Private room due to psychosis, agitation, and inappropriate disrobing/sexual behavior. - Meeting with B[facility] and [facility] staff when patient able to tolerate. 03/04 - Continue aripiprazole 25mg liquid (30mg pill equivalent) and continue to observe for improvement in thought process/content - consider conversion to Maintena if effective, versus trial of another agent if improvement remains limited - Fasting labs reviewed - all values WNL - Continue medically necessary private room - Request meeting with CR[facility] staff, in order to obtain details about patient's proximity to baseline 03/05 -Patient refusing liquid aripiprazole, but agrees to take the pill: Ordered 30 mg daily. -Schedule meeting with his returned case inspector, CRR and psych rehab staff. Consider involuntary outpatient commitment at the time of discharge. 03/06 -The patient has improved in that he is more reality based at this point. He continues to harbor fixed, systematized delusions, but is generally able to focus on reality based topics. -Although the patient tells me that he does not feel that aripiprazole has been effective, he is able to accept my opinion in the opinion of the staff that he has improved in response to aripiprazole. -The patient's main objection to aripiprazole oral solution is that he does not like the way it tastes, and within this context, he tells us that he is willing to accept Abilify Maintenaand requests that it be injected into his buttock. Abilify Maintena 300 mg IM ordered, and oral Abilify discontinued. We will resume oral Abilify if the patient subsequently changes his mind and refuses the injection. 03/07 resuming abilfiy oral given his refusal of FARAH form of abilify 03/08 is taking abilify po form but refusing abilify maintena form. advise close monitoring for potential of checking given pt's tendency to not want to take medications. 03/09 -The patient is flatly refusing to take aripiprazole in the form of Abilify Maintena. He is also been hesitant to take oral Abilify, but has been doing so. -The patient's lack of cooperation is thought possibly to be related to an un-expressed desire to not be discharged back to the community. He told me today that he left his meeting with his community providers after a few seconds because "just the side of them made me extremely anxious. My pulse elevated to 140." Later, he told me that he was still anxious about it and his pulse was "still around 130." The patient allowed me to take his pulse, and it was approximately 76. At that point he said, "did I say pulse? I meant systolic blood pressure." And when I pointed out that his systolic blood pressure of 130 is not considered to be a particular concern, he said "I mean diastolic." -Our hope had been that the patient would agree to accept a Depo form of medication. He was refusing Haldol Decanoate because of various side effects. Risperidone constant was ruled out as a first-line Depo medication because of the frequency of administration (the patient tends to get into power struggles over medications) and because he says that he is sensitive to "big needles." Invega would be an option, but currently the patient is being so uncooperative that our concern would be that he would cheek the oral tablets that we would have to give him first. Accordingly, the new strategy will be to discontinue Abilify, and resume olanzapine with olanzapine IM over objection if necessary. We will begin the olanzapine Zydis 20 mg at bedtime 03/10 -The patient took the prescribed dose of olanzapine Zydis 20 mg at bedtime last night. Today, he tells me that it "did not help at all." However, staff report that he has been somewhat more agreeable, more pleasant, and less paranoid today. -As he has with other providers, today he told me that I should have given him olanzapine 5 mg "to start", and I explained that he was already on keli zapine 20 mg when he came into the hospital and we know that he is able to tolerate that dose. He tells me that he did, in fact tolerate the dose and is not aware of any side effects, but, somewhat illogically, insisted that the dose was "too high for a starting dose." 03/11 - Continue current medication regimen at this time - olanzapine 20mg daily - Encourage participation in the milieu and in group programming as tolerated 03/12 -Continue current medication regimen. The patient's condition has not yet improved. -The patient does participate in select groups, but often tends to be disru ptive. 03/13 -Today, the patient seems to be somewhat more cooperative and less frankly delusional. It was possible to engage in a mostly reality based conversation for 5 or 10 minutes at a time. Also, although he was unhappy with me when I refused to provide him with a dose of Valium for anxiety, he was able to remain pleasant and calm at this time, did not storm from the room." 03/14 and 03/15 -no change in medication will work on therapeutic alliance given patient is not participating 03/16 -304 involuntary commitment granted. -Patient remains completely uncooperative with treatment, refused his Zyprexa Zydis last evening, but then ultimately took it before he received the injection. I have a high suspicion for cheeking of antipsychotic medication, and we will continue to be vigilant with mouth checks, and work towards a long- acting injectable. 03/17 -Patient has been on Zyprexa 20 mg at bedtime for 1 week, with limited response. He is refusing to discuss other medication options. Per records, he has been prescribed up to 30 mg olanzapine in the past, so will increase his dose to this previously tolerated dose, as it is 1 of the few medications he has been willing to take. Continue IM backup for refusal, and Zyprexa Zydis formulation to decrease risk of cheeking. He is not compliant with mouth checks, but have asked staff to try to observe him for 10 minutes after taking the Zydis to ensure he is not spitting it out before it dissolves. 03/18 -Continue Zyprexa Zydis 30 mg at bedtime with IM backup. Consider switch to a different medication (?oral paliperidone with IM backup) if irritability and agitation continues. He has tried virtually every atypical antipsychotic and reports none of them were effective (although some trials were short due to nonadherence) and has a history of dystonia on haloperidol. Clozapine would be a reasonable choice, but he has been unwilling to even discuss medication options. -Consider some component of cognitive decline which could be contributing to his worsening presentation and will need to be monitored and worked up further once he is more psychiatrically stable. -Refer to [facility] in the event that he does not improve and long-term inpatient treatment is needed. 03/19 - Proceed with [facility] referral. 03/20 - Continue current medication regimen; patient refused EKG and CXR yesterday - refused again today - Continue attempts to gather information to make a referral to [facility] 03/23 - Proceed with [facility] referral - patient has refused EKG and CXR for multiple attempts. We will send most recent tests available - Continue current medication regimen at this time 03/24 -Attempted to hold diversion meeting with his outpatient [facility], snf director, and the [facility] MH/ID; patient refused to attend or participate in the meeting. 03/25 - 03/26 - Continue treatment plan as above - no change in patient's condition and he remains unwilling to participate meaningfully in treatment - Continue with [facility] referral 03/27 -The patient has been informed that the plan at this point is to transfer him to [facility] for long-term inpatient psychiatric treatment, given his refusal to adhere with treatment and his associated behaviors in the community when not adherent with psychiatric treatment. -The patient continues to refuse mouth checks after given dosages of Zyprexa Zydis, and there is some question regarding whether he is actually ingesting this medication. He also would not cooperate with laboratory testing. -There has been a question regarding the patient's cognitive functions, and prior to admission he had been taking Aricept. When he does cooperate with this, I have not seen evidence of any substantial cognitive impairment. He may have mild cognitive impairment, but does not fully cooperate with formal cognitive assessment. He easily recalls the names of his providers, the names of the medications he is taking, the names of the various infectious agents that he believes are causing some of his psychiatric symptoms, the names of certain chemicals that he believes will rid him of the reference to infections, and is able to discuss current events such as recent news items. His assertion that he wants to return to his apartment in the community seems belied by his steadfast refusal to cooperate with those interventions I would make it possible for him to return, and there is some suspicion that although the patient remains floridly psychotic he may also be intentionally sabotaging discharge. 03/28 - 03/30 -There is been no international exchange coordinator the past 2 weeks, and long-term inpatient treatment at the [facility] is indicated. 03/31 - Continue current medication regimen - Pt briefly verbalized willingness for FARAH, but was not agreeable to medication adjustments to allow for this to be possible - If he should change his mind; recommendation is for trial of Invega orally to establish tolerability, then consideration for Invega Sustenna - unwilling for this today 04/01 - 04/03 - Continue current medication regimen - Continues to refuse FARAH, will continue discussion daily as this is the reported preference of his CRR 04/04 -Questionable positive PPD measuring 13 mm but history of confinement places him at higher risk. Patient refused chest x-ray today but we will reapproach. No active symptoms of infection. Order for sputum culture and smear today for confirmation. 04/05 -PPD now appears negative. Would suggest follow through with sputum smear and culture for confirmation as previously ordered -Continue treatment plan as above 04/06 - PPD reportedly negative, patient unable to follow-up with sputum smear - therefore discontinued - Continue medication regimen as above - unwilling to discuss conversion to an FARAH - Meeting today with representation from [facility] to discuss discharge planning 04/07 - Continue medication regimen as above - remains unwilling to discuss changes - Additional meeting with CRR and CM scheduled for next week - We have been regularly assessing patient's condition and appropriateness to go outside since his 30-day treatment plan review. As patient continues to be unwilling to participate in a meaningful conversation with providers regarding his condition, we continue to be unable to determine if he is appropriate to be taken off the unit - therefore will await ability to discuss the topic in a meaningful way prior to making this determination. Will continue regular evaluation. (2) Substance abuse: 02/25 - Pt has reported history of substance abuse, and recommendation has consistently been for avoidance of substances with significant abuse potential. - PDMP queried - most recent prescriptions below - lorazepam 0.5mg #60 tabs for 30 day supply - Dr. Alves - filled 02/12/2019 - alprazolam 0.5mg #90 tabs for 30 day supply - Dr. Lopez - filled 01/16/2019 - temazepam 30mg #30 caps for 30 day supply - Dr. Lopez - filled 01/16/2019 - Will continue lorazepam 0.5mg BID prn on admission, as only medication that is seemingly active - toxicology screen is negative for benzodiazepines, which questions if he has been taking the medication appropriately - Ideally will taper and discontinue the lorazepam, as recommendation remains that substances with abuse potential be avoided 02/26 -The patient's outpatient providers, during a meeting this morning, report that the patient tends to successfully convince physicians to prescribe benzodiazepines for him and that, in the past, he has abused him to the degree that he is practically obtunded. 02/27 -A repeat check of the PDMP reveals that the patient is consistently being prescribed lorazepam 0.5 mg twice daily (number 60/month) by a Dr. Brent Alves. He is also being prescribed alprazolam 0.[address] mg [address] Jeff Lopez, with the most recent previous prescription of alprazolam being on 01/16/[address] Lopez also prescribed temazepam 30 mg capsules #30 on 01/16/2019. According to his residential providers, no temazepam capsules were found among the patient's belongings. His most recent prescription for lorazepam 0.5 mg tablets was filled on 02/12/2019. 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 In the past, he reportedly has used clonazepam and temazepam. -I advised the patient that because of his history of misuse of benzodiazepines we would not be prescribing benzodiazepines during his hospital stay. An as needed order for lorazepam has not been used during hospital stay, and I discontinued the order today. 03/02 - Will need to coordinate care with his PCP and outpatient psychiatrist prior to discharge regarding the above. 03/04 - Charge nurse spoke with the above offices regarding concern for continued benzodiazepine prescriptions - Records will be faxed to their offices on discharge, as all benzodiazepines were discontinued during this hospitalization 03/06 -The patient did not request benzodiazepines and did not complain of anxiety today. I suggested to him that perhaps Abilify is also helping with anxiety in his case, and he responded by saying "perhaps." 03/09 -Today, the patient is insisting that what he needs is "benzodiazepines," and explains that the reason he "needs" benzodiazepines is that he has "benzodiazepine receptors," and that he is the only medications that work. He is unable to process warnings about the risks of benzodiazepines in the elderly, including increased risk of falls and mortality. Clearly, the patient is seeking benzodiazepines and has no insight into the associated risks. He also insists that he has never had trouble with benzodiazepines in the past, although there is well-documented of this. 03/10 -Today, the patient repeated his insistence that he needs benzodiazepines and that benzodiazepines are the only medications that work because he has "benzodiazepine receptors." After being told that everyone has central nervous system receptors to which benzodiazepines may attach, he replied, "That may be, but some of people need to have benzodiazepines forearm benzodiazepine receptors. 03/12 -Continues to request Benzodiazepines. 03/13 -Requests Valium for his "benzodiazepines receptors." 03/27 -Refuses to cooperate with assessment today, but has recently told staff that he needs "either Valium or Ativan." -The patient apparently has no working insight into his history of abuse of prescription medications (benzodiazepines). (3) Hypertension: 02/25 - Continue home dose of clonidine 0.1mg qHS 03/01 Watch mildly elevated blood pressures as patient has been refusing clonidine 03/03 - BP normal past two days, and low today 03/10 -The patient's blood pressure today was 136/73. His pulse was 71 03/14 - elevated BP it is not urgent but will need monitored. 03/15 - BP WNL 03/26 - BP continues to be WNL 04/02 - BP remains within normal limits; continue daily vitals per standard admission order set - Will consider acute phase of this problem resolved at this time Inventory Assets Strengths: -Intelligence. Support of community providers. Well educated. Needs: Resume symptom-stabilizing medication regimen, coordinate care with snf Risk Factors Assessment Male: Yes : Yes Do You Have Access To A Gun?: No Health Problems: Yes Mental Health Diagnoses: Yes Substance Use Disorders: Yes Protective Factors Assessment Rastafarian Beliefs: No : No Responsible for Young Children: No Employed: No Stable Relationships: No Supportive Family: No Good Rapport with Provider: No Interval History Identifying Information SCOTT ROBERTO is a 73-year-old M who currently lives at a [facility] in [place]. Pt has a history of schizophrenia and is known to our unit from several previous admissions, most recently in 09/2016. Pt and was admitted on 02/24/19 16:40 on a 302 involuntary commitment for exacerbation of schizophrenia and heightened paranoia resulting in belief he needed to hide in a dumpster to seek refuge from impending bombings. Pt was found by [facility] staff and brought to the ED by police. He is on a 304 involuntary commitment as of 03/16/19; pt was accepted at [facility] on 04/02/19, awaiting bed date. Chief Complaint "Sleeping." Review of Systems Notes Patient only participated in brief, superficial conversation. Verbalized he was no longer interested in speaking with this provider. Therefore unable to adequately assess review of systems. Patient did not verbalize any acute physical concerns at this time. Sleep Information Total Hours of Sleep: 7 Sleep Comments: awake at 0100-came out to the kitchen for cereals and juice then back to bed and sleep. Meal Information Percent Meal Consumed - Breakfast: 100 Percent Meal Consumed - Lunch: 90 Percent Meal Consumed - Dinner: 100 Nutrition Comment: per meal record Subjective Subjective Patient was seen & assessed and interval progress reviewed with nursing and social work. Staff reports the patient has been attending groups and on occasion participates. Patient attended a meeting with his returned case inspector and representation from [facility] yesterday. A follow-up meeting is scheduled for next week to reassess. It is reported that patient was accepted at [facility] on 04/02/2019, date is pending. Patient was seen today to assess progress since admission. He is observed to be laying in bed, and states he is "sleeping." Patient states he is not sure if he is tired or simply bored. He admits he attended exercise group this morning and sat in on community meeting; however, says "I do not say anything, that stuff is not interesting to me." Patient was asked how his meeting yesterday went, he responds by saying "so-so." When asked what feedback the [facility] staff provided to him, the patient states "that is the end of that. I do not want to talk anymor e." Patient continues to be superficially pleasant with staff; however, remains unwilling to discuss deeper issues of his psychiatric symptoms in order to evaluate any improvements in condition. Patient was encouraged to reach out to staff with any concerns throughout the day, he does not respond to any other questions from this provider. Physical Exam Psychiatric Orientation: alert; + uncooperative Apperance: appropriately dressed, appropriately groomed and appeared stated age Eye Contact: good eye contact Motor Behavior: no abnormal motor movements (Observed while laying in bed) Speech: normal rate/rhythm/volume of speech Affect: + flat affect Thought Process: + concrete thought process Estimated Intelligence: consistent with education level Insight: + severely impaired insight Judgement: + severely impaired judgement Vital Signs (Past 24 Hours) Last Vital Signs Temp 36.5 C 04/07/19 06:30 Pulse 73 04/07/19 06:31 Resp 18 04/07/19 06:30 BP 113/69 04/07/19 06:31 Pulse Ox 96 02/24/19 08:10 Results & Data Current Inpatient Medications Current Inpatient Medications: Current Inpatient Medications Acetaminophen (Tylenol) 650 mg PO Q4H PRN PRN Reason: Headache or Minor Fever Stop: 04/24/19 08:39 Al Hydrox/Mg Hydrox/Simethicone (Maalox) 30 ml PO Q4H PRN PRN Reason: GI Upset Stop: 04/24/19 08:39 Benztropine Mesylate (Cogentin) 0.5 mg PO BID PRN PRN Reason: dystonia Stop: 04/24/19 08:39 Bismuth Subsalicylate (Kaopectate) 15 ml PO PRN PRN PRN Reason: Loose Stool Stop: 04/24/19 08:39 Clonidine HCl (Catapres) 0.1 mg PO HS MAG Stop: 04/24/19 21:59 Last Admin: 04/06/19 20:33 Dose: 0.1 mg Documented by: Cyanocobalamin (Vitamin B-12) 500 mcg PO DAILY MAG Stop: 04/24/19 08:59 Last Admin: 04/07/19 07:33 Dose: 500 mcg Documented by: Hydroxyzine HCl (Vistaril) 50 mg PO HSZ PRN PRN Reason: Insomnia Stop: 04/24/19 08:44 Hydroxyzine HCl (Vistaril) 25 mg PO Q4H PRN PRN Reason: Anxiety Stop: 04/24/19 08:44 Magnesium Citrate (Citrate) 148 ml PO BID PRN PRN Reason: constipation Stop: 04/22/19 20:59 Last Admin: 03/23/19 17:19 Dose: 148 ml Documented by: Magnesium Hydroxide (Milk Of Magnesia) 30 ml PO DAILY PRN PRN Reason: Heartburn Stop: 04/24/19 08:44 Magnesium Oxide (Mag-Ox) 400 mg PO DAILY MAG Stop: 04/24/19 08:59 Last Admin: 04/07/19 07:31 Dose: 400 mg Documented by: Miscellaneous (Remove Nicoderm Patch) 1 ea N/A HS MAG Stop: 04/24/19 21:59 Last Admin: 04/06/19 20:32 Dose: Not Given Documented by: Multivitamins (Multivitamin Tab) 1 tab PO DAILY MAG Stop: 04/24/19 08:59 Last Admin: 04/07/19 07:31 Dose: 1 tab Documented by: Nicotine (Nicoderm Cq) 14 mg TD QAM MAG Stop: 04/24/19 08:59 Last Admin: 04/07/19 07:33 Dose: Not Given Documented by: Olanzapine (Zyprexa) 10 mg IM HS PRN PRN Reason: Undecided Stop: 04/24/19 08:44 Olanzapine (Zyprexa Zydis Od) 30 mg PO HS MAG Stop: 04/24/19 21:59 Last Admin: 04/06/19 20:33 Dose: 30 mg Documented by: Pyridoxine HCl (Vitamin B-6) 100 mg PO DAILY MAG Stop: 04/24/19 08:59 Last Admin: 04/07/19 07:33 Dose: 100 mg Documented by: Risperidone (Risperdal M) 1 mg PO BID PRN PRN Reason: psychosis Stop: 04/24/19 08:44 Sodium Chloride (Dover Nasal) 1 - 2 sprays NA PRN PRN PRN Reason: Nasal Dryness/Congestion Stop: 04/24/19 08:44 Mental Health & Subst Abuse Tx Therapist Name of Therapist: Sammy Solar Installation Manager Name of Solar Installation Manager: Shruti Lopez Phone Number for Solar Installation Manager: Case Management Appointment Comment: [phone], [place] [address] Post Discharge Appointments Primary Care Physician Name Of Family Doctor: Dr. Lopez Contact Information Discharge Discharge Address: [address] [place] [id number] CPT Code CPT Code 24007 (1) Schizophrenia Schizophrenia type: paranoid schizophrenia Qualified Code(s): F20.0 - Paranoid schizophrenia (2) Hypertension Hypertension type: essential hypertension Qualified Code(s): I10 - Essential (primary) hypertension
[2019-04-07] MEDS: OLANZAPINE ZYDIS 10 MG ORALLY DIS. TAB PO SCH (20:38)
[2019-04-07] MEDS: cloNIDine HCL 0.1 MG TAB PO SCH (20:38)
[2019-04-08] MEDS: MULTIVITAMIN TAB PO SCH (09:17)
[2019-04-08] MEDS: NICOTINE 14 MG/24 HR PATCH TD SCH (09:17)
[2019-04-08] MEDS: MAGNESIUM OXIDE 400 MG TAB PO SCH (09:17)
[2019-04-08] MEDS: PYRIDOXINE HCL 50 MG TAB PO SCH (09:17)
[2019-04-08] MEDS: CYANOCOBALAMIN 500 MCG TABLET (VITAMIN B-12) PO SCH (09:17)
--- NOTE | 2019-04-08 12:01 | Psychiatric Progress Note ---
Date of Service April 08, 2019 Impression / Recommendations Impression 73-year-old male with schizophrenia who lives at the [facility] and was admitted involuntarily on 02/24/2019 with delusions, hallucinations, irritability and erratic behavior after rapid decompensation 1-2 weeks after he stopped taking his antipsychotic. He was found in a dumpster, floridly delusional, and was combative with [facility] staff. He refused resumption of olanzapine, but ultimately agreed to take aripiprazole. It initially appeared that he was responding favorably, although not completely, to the addition of aripiprazole. Because of the patient's long history of dangerous behaviors in the community associated with nonadherence with psychiatric medications, the a depo antipsychotic medication was recommended, and he initially agreed to Abimichelle Aleman; however, refused it when staff attempted to administer the injection (03/13/2019), and subsequently became much more oppositional and hostile towards staff, refusing to speak with a psychiatrist or other [facility] staff since that time. He returned to [facility], which he reports he is compliant with despite often refusing mouth checks. He refused to participate in a diversion meeting with his custodial director and outpatient casework specialist on 03/24/19, but attended and participated in a second follow-up meeting on 03/31/2019. Meeting have taken place regularly since, with reports patient is still not at baseline. He continues to verbalize that he is unwilling to proceed with oral medication adjustments to allow for conversion to an FARAH. He has a clear history of dangerous behaviors during periods of nonadherence with medications in the community, and inpatient psychiatric hospitalization remains the least intensive, least restrictive level of care consistent with the patient's clinical and safety needs. He was referred to [facility] 03/23/2019; accepted on 04/02/19 and bed date is pending. (1) Schizophrenia: 02/25 - Continue home medication regimen - as refusing offerings of his antipsychotic, will likely require olanzapine IM (or alternative agent) over objection, given clear evidence of paranoia and delusional thought process - previously stabilized on this medication - Pt agreeable to taking all other medications, with exception of antipsychotic as mentioned above - Admitted to a locked inpatient behavioral health unit, on q15 minute safety checks - Encourage medication initiation/adjustments as indicated - Encourage participation in group and recreational therapies - Gather collateral information from outpatient providers and custodial sta ff - Suggest family meeting to involve outpatient supports in safety planning - Reschedule appropriate aftercare appointments 02/26 -Patient indicates willingness to sign a release for the [facility] custodial, will get collateral from their staff. -File for 303 involuntary commitment to be held tomorrow. -Recommend medications over objection, with an IM Zyprexa backup for refusal of oral medication. Involve outpatient treatment team to discuss ways to improve stability and compliance; consider long-acting injectable antipsychotic. -Order fasting labs for monitoring on an atypical antipsychotic once patient is more cooperative. 02/27 -The patient was retrained at his involuntary commitment hearing (303) this morning. -He has continuously and consistently refused psychiatric medications to date. However, today, when I explained that that a option that might become necessary in his case is medication over objection, and an intramuscular form, the patient said that he understood and that he would try medications that I prescribe. His initial preference would be olanzapine, but because olanzapine is not available in a long acting depot form, we would first like to try aripiprazole. He indicates that he is taken aripiprazole in the past and has been able to tolerate it, although he does not believe that it has been particularly helpful. -A trial dose of aripiprazole 15 mg by mouth, as a one-time dose, has been ordered and he assessed for efficacy. 02/28 -Appears to be tolerating initiation of Abilify so far. Remains delusional, paranoid. May consider further titration tomorrow -Aricept discontinued at patient's request on 02/27/2019. The medication has not been demonstrated to be efficacious for cognitive impairment associated with long-standing schizophrenia however we should be vigilant for slowing of mentation following discontinuation. 03/01 Patient fixated and irrational regarding access to clothing item as above today. Hospital environment becoming incorporated and delusions. Consider possibility that the aripiprazole is contributing to activation. We will increase to 20 mg tomorrow and also start Risperdal 1 mg p.o. twice daily as as needed. 03/02 - Continue with aripiprazole at 20mg daily, consider need for further titration - if tolerating and effective, eventual plan will be for conversion to Abilify Maintena - Pt has not yet utilized risperidone 03/03 - Increase aripiprazole to 25mg (equivalent to 30mg pill) and change to liquid formulation to decrease risk of cheeking/nonadherence, as patient does not believe he needs medication and had been noncompliant prior to hospitalization. - Fasting glucose and lipid profile ordered for tomorrow for monitoring on an atypical antipsychotic. - Private room due to psychosis, agitation, and inappropriate disrobing/sexual behavior. - Meeting with BCM and [facility] staff when patient able to tolerate. 03/04 - Continue aripiprazole 25mg liquid (30mg pill equivalent) and continue to observe for improvement in thought process/content - consider conversion to Maintena if effective, versus trial of another agent if improvement remains limited - Fasting labs reviewed - all values WNL - Continue medically necessary private room - Request meeting with [facility] staff, in order to obtain details about patient's proximity to baseline 03/05 -Patient refusing liquid aripiprazole, but agrees to take the pill: Ordered 30 mg daily. -Schedule meeting with his casework specialist, CRR and psych rehab staff. Consider involuntary outpatient commitment at the time of discharge. 03/06 -The patient has improved in that he is more reality based at this point. He continues to harbor fixed, systematized delusions, but is generally able to focus on reality based topics. -Although the patient tells me that he does not feel that aripiprazole has been effective, he is able to accept my opinion in the opinion of the staff that he has improved in response to aripiprazole. -The patient's main objection to aripiprazole oral solution is that he does not like the way it tastes, and within this context, he tells us that he is willing to accept Abilify Maintenaand requests that it be injected into his but tock. Abilify Maintena 300 mg IM ordered, and oral Abilify discontinued. We will resume oral Abilify if the patient subsequently changes his mind and refuses the injection. 03/07 resuming abilfiy oral given his refusal of FARAH form of abilify 03/08 is taking abilify po form but refusing abilify maintena form. advise close monitoring for potential of checking given pt's tendency to not want to take medications. 03/09 -The patient is flatly refusing to take aripiprazole in the form of Abilify Maintena. He is also been hesitant to take oral Abilify, but has been doing so. -The patient's lack of cooperation is thought possibly to be related to an un-expressed desire to not be discharged back to the community. He told me today that he left his meeting with his community providers after a few seconds because "just the side of them made me extremely anxious. My pulse elevated to 140." Later, he told me that he was still anxious about it and his pulse was "still around 130." The patient allowed me to take his pulse, and it was approximately 76. At that point he said, "did I say pulse? I meant systolic blood pressure." And when I pointed out that his systolic blood pressure of 130 is not considered to be a particular concern, he said "I mean diastolic." -Our hope had been that the patient would agree to accept a Depo form of medication. He was refusing Haldol Decanoate because of various side effects. Risperidone constant was ruled out as a first-line Depo medication because of the frequency of administration (the patient tends to get into power struggles over medications) and because he says that he is sensitive to "big needles." Invega would be an option, but currently the patient is being so uncooperative that our concern would be that he would cheek the oral tablets that we would have to give him first. Accordingly, the new strategy will be to discontinue Abilify, and resume olanzapine with olanzapine IM over objection if necessary. We will begin the olanzapine Zydis 20 mg at bedtime 03/10 -The patient took the prescribed dose of olanzapine Zydis 20 mg at bedtime last night. Today, he tells me that it "did not help at all." However, staff report that he has been somewhat more agreeable, more pleasant, and less paranoid today. -As he has with other providers, today he told me that I should have given him olanzapine 5 mg "to start", and I explained that he was already on olanzapine 20 mg when he came into the hospital and we know that he is able to tolerate that dose. He tells me that he did, in fact tolerate the dose and is not aware of any side effects, but, somewhat illogically, insisted that the dose was "too high for a starting dose." 03/11 - Continue current medication regimen at this time - olanzapine 20mg daily - Encourage participation in the milieu and in group programming as tolerated 03/12 -Continue current medication regimen. The patient's condition has not yet improved. -The patient does participate in select groups, but often tends to be disruptive. 03/13 -Today, the patient seems to be somewhat more cooperative and less frankly delusional. It was possible to engage in a mostly reality based conversation for 5 or 10 minutes at a time. Also, although he was unhappy with me when I refused to provide him with a dose of Valium for anxiety, he was able to remain pleasant and calm at this time, did not storm from the room." 03/14 and 03/15 -no change in medication will work on therapeutic alliance given patient is not participating 03/16 -304 involuntary commitment granted. -Patient remains completely uncooperative with treatment, refused his Zyprexa Zydis last evening, but then ultimately took it before he received the injection. I have a high suspicion for cheeking of antipsychotic medication, and we will continue to be vigilant with mouth checks, and work towards a long- acting injectable. 03/17 -Patient has been on Zyprexa 20 mg at bedtime for 1 week, with limited response. He is refusing to discuss other medication options. Per records, he has been prescribed up to 30 mg olanzapine in the past, so will increase his dose to this previously tolerated dose, as it is 1 of the few medications he has been willing to take. Continue IM backup for refusal, and Zyprexa Zydis formulation to decrease risk of cheeking. He is not compliant with mouth checks, but have asked staff to try to observe him for 10 minutes after taking the Zydis to ensure he is not spitting it out before it dissolves. 03/18 -Continue Zyprexa Zydis 30 mg at bedtime with IM backup. Consider switch to a different medication (?oral paliperidone with IM backup) if irritability and agitation continues. He has tried virtually every atypical antipsychotic and reports none of them were effective (although some trials were short due to nonadherence) and has a history of dystonia on haloperidol. Clozapine would be a reasonable choice, but he has been unwilling to even discuss medication options. -Consider some component of cognitive decline which could be contributing to his worsening presentation and will need to be monitored and worked up further once he is more psychiatrically stable. -Refer to [facility] in the event that he does not improve and long-term inpatient treatment is needed. 03/19 - Proceed with [facility] referral. 03/20 - Continue current medication regimen; patient refused EKG and CXR yesterday - refused again today - Continue attempts to gather information to make a referral to [facility] 03/23 - Proceed with [facility] referral - patient has refused EKG and CXR for multiple attempts. We will send most recent tests available - Continue current medication regimen at this time 03/24 -Attempted to hold diversion meeting with his outpatient [facility], custodial director, and the [facility]; patient refused to attend or participate in the meeting. 03/25 - 03/26 - Continue treatment plan as above - no change in patient's condition and he remains unwilling to participate meaningfully in treatment - Continue with [facility] referral 03/27 -The patient has been informed that the plan at this point is to transfer him to [facility] for long-term inpatient psychiatric treatment, given his refusal to adhere with treatment and his associated behaviors in the community when not adherent with psychiatric treatment. -The patient continues to refuse mouth checks after given dosages of Zyprexa Zydis, and there is some question regarding whether he is actually ingesting this medication. He also would not cooperate with laboratory testing. -There has been a question regarding the patient's cognitive functions, and prior to admission he had been taking Aricept. When he does cooperate with this, I have not seen evidence of any substantial cognitive impairment. He may have mild cognitive impairment, but does not fully cooperate with formal cognitive assessment. He easily recalls the names of his providers, the names of the medications he is taking, the names of the various infectious agents that he believes are causing some of his psychiatric symptoms, the names of certain chemicals that he believes will rid him of the reference to infections, and is able to discuss current events such as recent news items. His assertion that he wants to return to his apartment in the community seems belied by his steadfast refusal to cooperate with those interventions I would make it possible for him to return, and there is some suspicion that although the patient remains floridly psychotic he may also be intentionally sabotaging discharge. 03/28 - 03/30 -There is been no tire changer aircraft the past 2 weeks, and long-term inpatient treatment at the [facility] is indicated. 03/31 - Continue current medication regimen - Pt briefly verbalized willingness for FARAH, but was not agreeable to medication adjustments to allow for this to be possible - If he should change his mind; recommendation is for trial of Invega orally to establish tolerability, then consideration for Invega Sustenna - unwilling for this today 04/01 - 04/03 - Continue current medication regimen - Continues to refuse FARAH, will continue discussion daily as this is the reported preference of his CRR 04/04 -Questionable positive PPD measuring 13 mm but history of confinement places him at higher risk. Patient refused chest x-ray today but we will reapproach. No active symptoms of infection. Order for sputum culture and smear today for confirmation. 04/05 -PPD now appears negative. Would suggest follow through with sputum smear and culture for confirmation as previously ordered -Continue treatment plan as above 04/06 - PPD reportedly negative, patient unable to follow-up with sputum smear - therefore discontinued - Continue medication regimen as above - unwilling to discuss conversion to an FARAH - Meeting today with representation from [facility] to discuss discharge planning 04/07 - Continue medication regimen as above - remains unwilling to discuss changes - Additional meeting with CRR and CM scheduled for next week - We have been regularly assessing patient's condition and appropriateness to go outside since his 30-day treatment plan review. As patient continues to be unwilling to participate in a meaningful conversation with providers regarding his condition, we continue to be unable to determine if he is appropriate to be taken off the unit - therefore will await ability to discuss the topic in a meaningful way prior to making this determination. Will continue regular evaluation. 04/08 - Continue current medication regimen, as patient unwilling to discuss changes - Attempted again to determine if appropriate to go outside, patient unwilling to participate in conversation despite being told the goal of allowing him to go outside - Meeting with CM and CRR director scheduled for 04/13 at 1030 (2) Substance abuse: 02/25 - Pt has reported history of substance abuse, and recommendation has consistently been for avoidance of substances with significant abuse potential. - PDMP queried - most recent prescriptions below - lorazepam 0.5mg #60 tabs for 30 day supply - Dr. Alves - filled 02/12/2019 - alprazolam 0.5mg #90 tabs for 30 day supply - Dr. Lopez - filled 01/16/2019 - temazepam 30mg #30 caps for 30 day supply - Dr. Lopez - filled 01/16/2019 - Will continue lorazepam 0.5mg BID prn on admission, as only medication that is seemingly active - toxicology screen is negative for benzodiazepines, which questions if he has been taking the medication appropriately - Ideally will taper and discontinue the lorazepam, as recommendation remains that substances with abuse potential be avoided 02/26 -The patient's outpatient providers, during a meeting this morning, report that the patient tends to successfully convince physicians to prescribe benzodiazepines for him and that, in the past, he has abused him to the degree that he is practically obtunded. 02/27 -A repeat check of the PDMP reveals that the patient is consistently being prescribed lorazepam 0.5 mg twice daily (number 60/month) by a Dr. Brent Alves. He is also being prescribed alprazolam 0.[address] mg [address] Jeff Lopez, with the most recent previous prescription of alprazolam being on 01/16/[address] Lopez also prescribed temazepam 30 mg capsules #30 on 01/16/2019. According to his residential providers, no temazepam capsules were found among the patient's belongings. His most recent prescription for lorazepam 0.5 mg tablets was filled on 02/12/2019. 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 In the past, he reportedly has used clonazepam and temazepam. -I advised the patient that because of his history of misuse of benzodiazepines we would not be prescribing benzodiazepines during his hospital stay. An as needed order for lorazepam has not been used during hospital stay, and I discontinued the order today. 03/02 - Will need to coordinate care with his PCP and outpatient psychiatrist prior to discharge regarding the above. 03/04 - Charge nurse spoke with the above offices regarding concern for continued benzodiazepine prescriptions - Records will be faxed to their offices on discharge, as all benzodiazepines were discontinued during this hospitalization 03/06 -The patient did not request benzodiazepines and did not complain of anxiety today. I suggested to him that perhaps Abilify is also helping with anxiety in his case, and he responded by saying "perhaps." 03/09 -Today, the patient is insisting that what he needs is "benzodiazepines," and explains that the reason he "needs" benzodiazepines is that he has "benzodiazepine receptors," and that he is the only medications that work. He is unable to process warnings about the risks of benzodiazepines in the elderly, including increased risk of falls and mortality. Clearly, the patient is seeking benzodiazepines and has no insight into the associated risks. He also insists that he has never had trouble with benzodiazepines in the past, although there is well-documented of this. 03/10 -Today, the patient repeated his insistence that he needs benzodiazepines and that benzodiazepines are the only medications that work because he has "benzodi azepine receptors." After being told that everyone has central nervous system receptors to which benzodiazepines may attach, he replied, "That may be, but some of people need to have benzodiazepines forearm benzodiazepine receptors. 03/12 -Continues to request Benzodiazepines. 03/13 -Requests Valium for his "benzodiazepines receptors." 03/27 -Refuses to cooperate with assessment today, but has recently told staff that he needs "either Valium or Ativan." -The patient apparently has no working insight into his history of abuse of prescription medications (benzodiazepines). (3) Hypertension: 02/25 - Continue home dose of clonidine 0.1mg qHS 03/01 Watch mildly elevated blood pressures as patient has been refusing clonidine 03/03 - BP normal past two days, and low today 03/10 -The patient's blood pressure today was 136/73. His pulse was 71 03/14 - elevated BP it is not urgent but will need monitored. 03/15 - BP WNL 03/26 - BP continues to be WNL 04/02 - BP remains within normal limits; continue daily vitals per standard admission order set - Will consider acute phase of this problem resolved at this time Inventory Assets Strengths: -Intelligence. Support of community providers. Well educated. Needs: Resume symptom-stabilizing medication regimen, coordinate care with custodial Risk Factors Assessment Male: Yes : Yes Do You Have Access To A Gun?: No Health Problems: Yes Mental Health Diagnoses: Yes Substance Use Disorders: Yes Protective Factors Assessment Holiness Beliefs: No : No Responsible for Young Children: No Employed: No Stable Relationships: No Supportive Family: No Good Rapport with Provider: No Interval History Identifying Information SCOTT ROBERTO is a 73-year-old M who currently lives at a [facility] in [place]. Pt has a history of schizophrenia and is known to our unit from several previous admissions, most recently in 09/2016. Pt and was admitted on 02/24/19 16:40 on a 302 involuntary commitment for exacerbation of schizophrenia and heightened paranoia resulting in belief he needed to hide in a dumpster to seek refuge from impending bombings. Pt was found by [facility] staff and brought to the ED by police. He is on a 304 involuntary commitment as of 03/16/19; pt was accepted at [facility] on 04/02/19, awaiting bed date. Chief Complaint "I do not wish to speak right now." Review of Systems Notes Patient unwilling to comply with lengthy enough interview to thoroughly review any physical concerns. Patient does not verbalize any acute complaints at this time. Sleep Information Total Hours of Sleep: 7.25 Sleep Comments: pt on q-15 minute checks Meal Information Percent Meal Consumed - Breakfast: 100 Percent Meal Consumed - Lunch: 100 Percent Meal Consumed - Dinner: 100 Nutrition Comment: per meal record Subjective Subjective Patient was seen & assessed and interval progress reviewed with treatment team. Staff reports the patient continues to attend groups with minimal participation. Follow-up meeting with casework specialist and [facility] staff is scheduled for 04/13/2019 at 1030. Patient was seen today to assess progress since admission. Patient reports to this provider, "I do not wish to speak right now." This provider said she would stop back in the afternoon. This provider did not share with the patient that she was interested in again discussing the possibility of him going outside. Patient was informed that he would be expected to participate in a conversation regarding the details of this and ensure no safety concerns were present prior to deciding if this was appropriate. Patient states "as long as you comply with the Marnie rights." Patient was asked what this meant, and he states "I am not going to testify against myself, you cannot make me." Patient was again informed that a brief conversation would be required to decide if he was appropriate to go outside, and that this provider wished for him to get some fresh air if it was his desire. Patient states "he will have to read me my rights." This provider has consistently informed patient that she is not authorized to do this and that this is not necessary for the situation he is in. Patient states "that I will not discuss it any further." Patient then closes his eyes and ignores remaining questions from this provider. Physical Exam Psychiatric Orientation: alert and oriented to person; + uncooperative Apperance: appropriately dressed, appropriately groomed and appeared stated age Eye Contact: + fair eye contact (Patient unwilling to open eyes at end of visit and pretends to be sleeping) Motor Behavior: no abnormal motor movements (Patient observed while laying in bed, arms and legs crossed) Speech: normal rate/rhythm/volume of speech (Irritable tone) Affect: + irritable affect; no depressed affect and no anxious affect Cognition: attention grossly intact and language grossly intact Estimated Intelligence: consistent with education level Insight: + severely impaired insight Judgement: + severely impaired judgement Vital Signs (Past 24 Hours) Last Vital Signs Temp 36.5 C 04/08/19 06:56 Pulse 72 04/08/19 06:57 Resp 18 04/08/19 06:56 BP 123/76 04/08/19 06:57 Pulse Ox 96 02/24/19 08:10 Results & Data Current Inpatient Medications Current Inpatient Medications: Current Inpatient Medications Acetaminophen (Tylenol) 650 mg PO Q4H PRN PRN Reason: Headache or Minor Fever Stop: 04/24/19 08:39 Al Hydrox/Mg Hydrox/Simethicone (Maalox) 30 ml PO Q4H PRN PRN Reason: GI Upset Stop: 04/24/19 08:39 Benztropine Mesylate (Cogentin) 0.5 mg PO BID PRN PRN Reason: dystonia Stop: 04/24/19 08:39 Bismuth Subsalicylate (Kaopectate) 15 ml PO PRN PRN PRN Reason: Loose Stool Stop: 04/24/19 08:39 Clonidine HCl (Catapres) 0.1 mg PO HS MAG Stop: 04/24/19 21:59 Last Admin: 04/07/19 20:38 Dose: 0.1 mg Documented by: Cyanocobalamin (Vitamin B-12) 500 mcg PO DAILY MAG Stop: 04/24/19 08:59 Last Admin: 04/08/19 09:17 Dose: 500 mcg Documented by: Hydroxyzine HCl (Vistaril) 50 mg PO HSZ PRN PRN Reason: Insomnia Stop: 04/24/19 08:44 Hydroxyzine HCl (Vistaril) 25 mg PO Q4H PRN PRN Reason: Anxiety Stop: 04/24/19 08:44 Magnesium Citrate (Citrate) 148 ml PO BID PRN PRN Reason: constipation Stop: 04/22/19 20:59 Last Admin: 03/23/19 17:19 Dose: 148 ml Documented by: Magnesium Hydroxide (Milk Of Magnesia) 30 ml PO DAILY PRN PRN Reason: Heartburn Stop: 04/24/19 08:44 Magnesium Oxide (Mag-Ox) 400 mg PO DAILY MAG Stop: 04/24/19 08:59 Last Admin: 04/08/19 09:17 Dose: 400 mg Documented by: Miscellaneous (Remove Nicoderm Patch) 1 ea N/A HS MAG Stop: 04/24/19 21:59 Last Admin: 04/07/19 20:37 Dose: Not Given Documented by: Multivitamins (Multivitamin Tab) 1 tab PO DAILY MAG Stop: 04/24/19 08:59 Last Admin: 04/08/19 09:17 Dose: 1 tab Documented by: Nicotine (Nicoderm Cq) 14 mg TD QAM MAG Stop: 04/24/19 08:59 Last Admin: 04/08/19 09:17 Dose: Not Given Documented by: Olanzapine (Zyprexa) 10 mg IM HS PRN PRN Reason: Undecided Stop: 04/24/19 08:44 Olanzapine (Zyprexa Zydis Od) 30 mg PO HS MAG Stop: 04/24/19 21:59 Last Admin: 04/07/19 20:38 Dose: 30 mg Documented by: Pyridoxine HCl (Vitamin B-6) 100 mg PO DAILY MAG Stop: 04/24/19 08:59 Last Admin: 04/08/19 09:17 Dose: 100 mg Documented by: Risperidone (Risperdal M) 1 mg PO BID PRN PRN Reason: psychosis Stop: 04/24/19 08:44 Sodium Chloride (Howard Nasal) 1 - 2 sprays NA PRN PRN PRN Reason: Nasal Dryness/Congestion Stop: 04/24/19 08:44 Mental Health & Subst Abuse Tx Therapist Name of Therapist: Denies Manager Recovery Name of Manager Recovery: Shruti Lopez Phone Number for Manager Recovery: Case Management Appointment Comment: [phone], [place] [address] Post Discharge Appointments Primary Care Physician Name Of Family Doctor: Dr. Lopez Contact Information Discharge Discharge Address: [address] [place] [address], [place] [address] CPT Code CPT Code 20055 (1) Schizophrenia Schizophrenia type: paranoid schizophrenia Qualified Code(s): F20.0 - Paranoid schizophrenia (2) Hypertension Hypertension type: essential hypertension Qualified Code(s): I10 - Essential (primary) hypertension
[2019-04-08] MEDS: cloNIDine HCL 0.1 MG TAB PO SCH (20:25)
[2019-04-08] MEDS: OLANZAPINE ZYDIS 10 MG ORALLY DIS. TAB PO SCH (20:25)
[2019-04-09] MEDS: NICOTINE 14 MG/24 HR PATCH TD SCH ×2 (08:32→12:52)
[2019-04-09] MEDS: CYANOCOBALAMIN 500 MCG TABLET (VITAMIN B-12) PO SCH (08:32)
[2019-04-09] MEDS: PYRIDOXINE HCL 50 MG TAB PO SCH (08:32)
[2019-04-09] MEDS: MAGNESIUM OXIDE 400 MG TAB PO SCH (08:32)
[2019-04-09] MEDS: MULTIVITAMIN TAB PO SCH (08:32)
--- NOTE | 2019-04-09 09:30 | Psychiatric Progress Note ---
Date of Service April 09, 2019 Impression / Recommendations Impression 73-year-old male with schizophrenia who lives at the [facility] and was admitted involuntarily on 02/24/2019 with delusions, hallucinations, irritability and erratic behavior after rapid decompensation 1-2 weeks after he stopped taking his antipsychotic. He was found in a dumpster, floridly delusional, and was combative with [facility] staff. He refused resumption of olanzapine, but ultimately agreed to take aripiprazole. It initially appeared that he was responding favorably, although not completely, to the addition of aripiprazole. Because of the patient's long history of dangerous behaviors in the community associated with nonadherence with psychiatric medications, the a depo antipsychotic medication was recommended, and he initially agreed to Abimichelle Aleman; however, refused it when staff attempted to administer the injection (03/13/2019), and subsequently became much more oppositional and hostile towards staff, refusing to speak with a psychiatrist or other [facility] staff since that time. He returned to [facility], which he reports he is compliant with despite often refusing mouth checks. He refused to participate in a diversion meeting with his shelter director and outpatient shelter case manager on 03/24/19, but attended and participated in a second follow-up meeting on 03/31/2019. Meeting have taken place regularly since, with reports patient is still not at baseline. He continues to verbalize that he is unwilling to proceed with oral medication adjustments to allow for conversion to an FARAH. He has a clear history of dangerous behaviors during periods of nonadherence with medications in the community, and inpatient psychiatric hospitalization remains the least intensive, least restrictive level of care consistent with the patient's clinical and safety needs. He was referred to [facility] 03/23/2019; accepted on 04/02/19 and bed date is pending. (1) Schizophrenia: 02/25 - Continue home medication regimen - as refusing offerings of his antipsychotic, will likely require olanzapine IM (or alternative agent) over objection, given clear evidence of paranoia and delusional thought process - previously stabilized on this medication - Pt agreeable to taking all other medications, with exception of antipsychotic as mentioned above - Admitted to a locked inpatient behavioral health unit, on q15 minute safety checks - Encourage medication initiation/adjustments as indicated - Encourage participation in group and recreational therapies - Gather collateral information from outpatient providers and shelter sta ff - Suggest family meeting to involve outpatient supports in safety planning - Reschedule appropriate aftercare appointments 02/26 -Patient indicates willingness to sign a release for the [facility] shelter, will get collateral from their staff. -File for 303 involuntary commitment to be held tomorrow. -Recommend medications over objection, with an IM Zyprexa backup for refusal of oral medication. Involve outpatient treatment team to discuss ways to improve stability and compliance; consider long-acting injectable antipsychotic. -Order fasting labs for monitoring on an atypical antipsychotic once patient is more cooperative. 02/27 -The patient was retrained at his involuntary commitment hearing (303) this morning. -He has continuously and consistently refused psychiatric medications to date. However, today, when I explained that that a option that might become necessary in his case is medication over objection, and an intramuscular form, the patient said that he understood and that he would try medications that I prescribe. His initial preference would be olanzapine, but because olanzapine is not available in a long acting depot form, we would first like to try aripiprazole. He indicates that he is taken aripiprazole in the past and has been able to tolerate it, although he does not believe that it has been particularly helpful. -A trial dose of aripiprazole 15 mg by mouth, as a one-time dose, has been ordered and he assessed for efficacy. 02/28 -Appears to be tolerating initiation of Abilify so far. Remains delusional, paranoid. May consider further titration tomorrow -Aricept discontinued at patient's request on 02/27/2019. The medication has not been demonstrated to be efficacious for cognitive impairment associated with long-standing schizophrenia however we should be vigilant for slowing of mentation following discontinuation. 03/01 Patient fixated and irrational regarding access to clothing item as above today. Hospital environment becoming incorporated and delusions. Consider possibility that the aripiprazole is contributing to activation. We will increase to 20 mg tomorrow and also start Risperdal 1 mg p.o. twice daily as as needed. 03/02 - Continue with aripiprazole at 20mg daily, consider need for further titration - if tolerating and effective, eventual plan will be for conversion to Abilify Maintena - Pt has not yet utilized risperidone 03/03 - Increase aripiprazole to 25mg (equivalent to 30mg pill) and change to liquid formulation to decrease risk of cheeking/nonadherence, as patient does not believe he needs medication and had been noncompliant prior to hospitalization. - Fasting glucose and lipid profile ordered for tomorrow for monitoring on an atypical antipsychotic. - Private room due to psychosis, agitation, and inappropriate disrobing/sexual behavior. - Meeting with [facility] and [facility] staff when patient able to tolerate. 03/04 - Continue aripiprazole 25mg liquid (30mg pill equivalent) and continue to observe for improvement in thought process/content - consider conversion to Maintena if effective, versus trial of another agent if improvement remains limited - Fasting labs reviewed - all values WNL - Continue medically necessary private room - Request meeting with [facility] staff, in order to obtain details about patient's proximity to baseline 03/05 -Patient refusing liquid aripiprazole, but agrees to take the pill: Ordered 30 mg daily. -Schedule meeting with his shelter case manager, [facility] and psych rehab staff. Consider involuntary outpatient commitment at the time of discharge. 03/06 -The patient has improved in that he is more reality based at this point. He continues to harbor fixed, systematized delusions, but is generally able to focus on reality based topics. -Although the patient tells me that he does not feel that aripiprazole has been effective, he is able to accept my opinion in the opinion of the staff that he has improved in response to aripiprazole. -The patient's main objection to aripiprazole oral solution is that he does not like the way it tastes, and within this context, he tells us that he is willing to accept Abilify Maintenaand requests that it be injected into his but tock. Abilify Maintena 300 mg IM ordered, and oral Abilify discontinued. We will resume oral Abilify if the patient subsequently changes his mind and refuses the injection. 03/07 resuming abilfiy oral given his refusal of FARAH form of abilify 03/08 is taking abilify po form but refusing abilify maintena form. advise close monitoring for potential of checking given pt's tendency to not want to take medications. 03/09 -The patient is flatly refusing to take aripiprazole in the form of Abilify Maintena. He is also been hesitant to take oral Abilify, but has been doing so. -The patient's lack of cooperation is thought possibly to be related to an un-expressed desire to not be discharged back to the community. He told me today that he left his meeting with his community providers after a few seconds because "just the side of them made me extremely anxious. My pulse elevated to 140." Later, he told me that he was still anxious about it and his pulse was "still around 130." The patient allowed me to take his pulse, and it was approximately 76. At that point he said, "did I say pulse? I meant systolic blood pressure." And when I pointed out that his systolic blood pressure of 130 is not considered to be a particular concern, he said "I mean diastolic." -Our hope had been that the patient would agree to accept a Depo form of medication. He was refusing Haldol Decanoate because of various side effects. Risperidone constant was ruled out as a first-line Depo medication because of the frequency of administration (the patient tends to get into power struggles over medications) and because he says that he is sensitive to "big needles." Invega would be an option, but currently the patient is being so uncooperative that our concern would be that he would cheek the oral tablets that we would have to give him first. Accordingly, the new strategy will be to discontinue Abilify, and resume olanzapine with olanzapine IM over objection if necessary. We will begin the olanzapine Zydis 20 mg at bedtime 03/10 -The patient took the prescribed dose of olanzapine Zydis 20 mg at bedtime last night. Today, he tells me that it "did not help at all." However, staff report that he has been somewhat more agreeable, more pleasant, and less paranoid today. -As he has with other providers, today he told me that I should have given him olanzapine 5 mg "to start", and I explained that he was already on olanzapine 20 mg when he came into the hospital and we know that he is able to tolerate that dose. He tells me that he did, in fact tolerate the dose and is not aware of any side effects, but, somewhat illogically, insisted that the dose was "too high for a starting dose." 03/11 - Continue current medication regimen at this time - olanzapine 20mg daily - Encourage participation in the milieu and in group programming as tolerated 03/12 -Continue current medication regimen. The patient's condition has not yet improved. -The patient does participate in select groups, but often tends to be disruptive. 03/13 -Today, the patient seems to be somewhat more cooperative and less frankly delusional. It was possible to engage in a mostly reality based conversation for 5 or 10 minutes at a time. Also, although he was unhappy with me when I refused to provide him with a dose of Valium for anxiety, he was able to remain pleasant and calm at this time, did not storm from the room." 03/14 and 03/15 -no change in medication will work on therapeutic alliance given patient is not participating 03/16 -304 involuntary commitment granted. -Patient remains completely uncooperative with treatment, refused his Zyprexa Zydis last evening, but then ultimately took it before he received the injection. I have a high suspicion for cheeking of antipsychotic medication, and we will continue to be vigilant with mouth checks, and work towards a long- acting injectable. 03/17 -Patient has been on Zyprexa 20 mg at bedtime for 1 week, with limited response. He is refusing to discuss other medication options. Per records, he has been prescribed up to 30 mg olanzapine in the past, so will increase his dose to this previously tolerated dose, as it is 1 of the few medications he has been willing to take. Continue IM backup for refusal, and Zyprexa Zydis formulation to decrease risk of cheeking. He is not compliant with mouth checks, but have asked staff to try to observe him for 10 minutes after taking the Zydis to ensure he is not spitting it out before it dissolves. 03/18 -Continue Zyprexa Zydis 30 mg at bedtime with IM backup. Consider switch to a different medication (?oral paliperidone with IM backup) if irritability and agitation continues. He has tried virtually every atypical antipsychotic and reports none of them were effective (although some trials were short due to nonadherence) and has a history of dystonia on haloperidol. Clozapine would be a reasonable choice, but he has been unwilling to even discuss medication options. -Consider some component of cognitive decline which could be contributing to his worsening presentation and will need to be monitored and worked up further once he is more psychiatrically stable. -Refer to [facility] in the event that he does not improve and long-term inpatient treatment is needed. 03/19 - Proceed with [facility] referral. 03/20 - Continue current medication regimen; patient refused EKG and CXR yesterday - refused again today - Continue attempts to gather information to make a referral to [facility] 03/23 - Proceed with [facility] referral - patient has refused EKG and CXR for multiple attempts. We will send most recent tests available - Continue current medication regimen at this time 03/24 -Attempted to hold diversion meeting with his outpatient [facility], shelter director, and the [facility]; patient refused to attend or participate in the meeting. 03/25 - 03/26 - Continue treatment plan as above - no change in patient's condition and he remains unwilling to participate meaningfully in treatment - Continue with [facility] referral 03/27 -The patient has been informed that the plan at this point is to transfer him to [facility] for long-term inpatient psychiatric treatment, given his refusal to adhere with treatment and his associated behaviors in the community when not adherent with psychiatric treatment. -The patient continues to refuse mouth checks after given dosages of Zyprexa Zydis, and there is some question regarding whether he is actually ingesting this medication. He also would not cooperate with laboratory testing. -There has been a question regarding the patient's cognitive functions, and prior to admission he had been taking Aricept. When he does cooperate with this, I have not seen evidence of any substantial cognitive impairment. He may have mild cognitive impairment, but does not fully cooperate with formal cognitive assessment. He easily recalls the names of his providers, the names of the medications he is taking, the names of the various infectious agents that he believes are causing some of his psychiatric symptoms, the names of certain chemicals that he believes will rid him of the reference to infections, and is able to discuss current events such as recent news items. His assertion that he wants to return to his apartment in the community seems belied by his steadfast refusal to cooperate with those interventions I would make it possible for him to return, and there is some suspicion that although the patient remains floridly psychotic he may also be intentionally sabotaging discharge. 03/28 - 03/30 -There is been no manager exchange the past 2 weeks, and long-term inpatient treatment at the [facility] is indicated. 03/31 - Continue current medication regimen - Pt briefly verbalized willingness for FARAH, but was not agreeable to medication adjustments to allow for this to be possible - If he should change his mind; recommendation is for trial of Invega orally to establish tolerability, then consideration for Invega Sustenna - unwilling for this today 04/01 - 04/03 - Continue current medication regimen - Continues to refuse FARAH, will continue discussion daily as this is the reported preference of his [facility] 04/04 -Questionable positive PPD measuring 13 mm but history of confinement places him at higher risk. Patient refused chest x-ray today but we will reapproach. No active symptoms of infection. Order for sputum culture and smear today for confirmation. 04/05 -PPD now appears negative. Would suggest follow through with sputum smear and culture for confirmation as previously ordered -Continue treatment plan as above 04/06 - PPD reportedly negative, patient unable to follow-up with sputum smear - therefore discontinued - Continue medication regimen as above - unwilling to discuss conversion to an FARAH - Meeting today with representation from [facility] to discuss discharge planning 04/07 - Continue medication regimen as above - remains unwilling to discuss changes - Additional meeting with [facility] and CM scheduled for next week - We have been regularly assessing patient's condition and appropriateness to go outside since his 30-day treatment plan review. As patient continues to be unwilling to participate in a meaningful conversation with providers regarding his condition, we continue to be unable to determine if he is appropriate to be taken off the unit - therefore will await ability to discuss the topic in a meaningful way prior to making this determination. Will continue regular evaluation. 04/08 - 04/09 - Continue current medication regimen, as patient unwilling to discuss changes - Attempted again to determine if appropriate to go outside, patient unwilling to participate in conversation despite being told the goal of allowing him to go outside - Meeting with CM and [facility] director scheduled for 04/13 at 1030 (2) Substance abuse: 02/25 - Pt has reported history of substance abuse, and recommendation has consistently been for avoidance of substances with significant abuse potential. - PDMP queried - most recent prescriptions below - lorazepam 0.5mg #60 tabs for 30 day supply - Dr. Avles - filled 02/12/2019 - alprazolam 0.5mg #90 tabs for 30 day supply - Dr. Lopez - filled 01/16/2019 - temazepam 30mg #30 caps for 30 day supply - Dr. Lopez - filled 01/16/2019 - Will continue lorazepam 0.5mg BID prn on admission, as only medication that is seemingly active - toxicology screen is negative for benzodiazepines, which questions if he has been taking the medication appropriately - Ideally will taper and discontinue the lorazepam, as recommendation remains that substances with abuse potential be avoided 02/26 -The patient's outpatient providers, during a meeting this morning, report that the patient tends to successfully convince physicians to prescribe benzodiazepines for him and that, in the past, he has abused him to the degree that he is practically obtunded. 02/27 -A repeat check of the PDMP reveals that the patient is consistently being prescribed lorazepam 0.5 mg twice daily (number 60/month) by a Dr. Brent Alves. He is also being prescribed alprazolam 0.[address] mg [address] Jeff Lopez, with the most recent previous prescription of alprazolam being on 01/16/[address] Lopez also prescribed temazepam 30 mg ca psules #30 on 01/16/2019. According to his residential providers, no temazepam capsules were found among the patient's belongings. His most recent prescription for lorazepam 0.5 mg tablets was filled on 02/12/2019. 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 In the past, he reportedly has used clonazepam and temazepam. -I advised the patient that because of his history of misuse of benzodiazepines we would not be prescribing benzodiazepines during his hospital stay. An as needed order for lorazepam has not been used during hospital stay, and I discontinued the order today. 03/02 - Will need to coordinate care with his PCP and outpatient psychiatrist prior to discharge regarding the above. 03/04 - Charge nurse spoke with the above offices regarding concern for continued benzodiazepine prescriptions - Records will be faxed to their offices on discharge, as all benzodiazepines were discontinued during this hospitalization 03/06 -The patient did not request benzodiazepines and did not complain of anxiety today. I suggested to him that perhaps Abilify is also helping with anxiety in his case, and he responded by saying "perhaps." 03/09 -Today, the patient is insisting that what he needs is "benzodiazepines," and explains that the reason he "needs" benzodiazepines is that he has "benzodiazepine receptors," and that he is the only medications that work. He is unable to process warnings about the risks of benzodiazepines in the elderly, including increased risk of falls and mortality. Clearly, the patient is seeking benzodiazepines and has no insight into the associated risks. He also insists that he has never had trouble with benzodiazepines in the past, although there is well-documented of this. 03/10 -Today, the patient repeated his insistence that he needs benzodiazepines and that benzodiazepines are the only medications that work because he has " benzodiazepine receptors." After being told that everyone has central nervous system receptors to which benzodiazepines may attach, he replied, "That may be, but some of people need to have benzodiazepines forearm benzodiazepine receptors. 03/12 -Continues to request Benzodiazepines. 03/13 -Requests Valium for his "benzodiazepines receptors." 03/27 -Refuses to cooperate with assessment today, but has recently told staff that he needs "either Valium or Ativan." -The patient apparently has no working insight into his history of abuse of prescription medications (benzodiazepines). (3) Hypertension: 02/25 - Continue home dose of clonidine 0.1mg qHS 03/01 Watch mildly elevated blood pressures as patient has been refusing clonidine 03/03 - BP normal past two days, and low today 03/10 -The patient's blood pressure today was 136/73. His pulse was 71 03/14 - elevated BP it is not urgent but will need monitored. 03/15 - BP WNL 03/26 - BP continues to be WNL 04/02 - BP remains within normal limits; continue daily vitals per standard admission order set - Will consider acute phase of this problem resolved at this time Inventory Assets Strengths: -Intelligence. Support of community providers. Well educated. Needs: Resume symptom-stabilizing medication regimen, coordinate care with shelter Risk Factors Assessment Male: Yes : Yes Do You Have Access To A Gun?: No Health Problems: Yes Mental Health Diagnoses: Yes Substance Use Disorders: Yes Protective Factors Assessment Hoahaoism Beliefs: No : No Responsible for Young Children: No Employed: No Stable Relationships: No Supportive Family: No Good Rapport with Provider: No Interval History Identifying Information SCOTT ROBERTO is a 73-year-old M who currently lives at a [facility] in [place]. Pt has a history of schizophrenia and is known to our unit from several previous admissions, most recently in 09/2016. Pt and was admitted on 02/24/19 16:40 on a 302 involuntary commitment for exacerbation of schizophrenia and heightened paranoia resulting in belief he needed to hide in a dumpster to seek refuge from impending bombings. Pt was found by [facility] staff and brought to the ED by police. He is on a 304 involuntary commitment as of 03/16/19; pt was accepted at [facility] on 04/02/19, awaiting bed date. Chief Complaint "NOT.ONE.WORD.TO.YOU.TODAY." Review of Systems Notes Pt unwilling to participate in conversation, therefore unable to adequately assess review of systems. Pt did not verbalize any physical complaints. Sleep Information Total Hours of Sleep: 8 Sleep Comments: pt on q-15 minute checks Meal Information Percent Meal Consumed - Breakfast: 100 Percent Meal Consumed - Lunch: 100 Percent Meal Consumed - Dinner: 100 Nutrition Comment: per meal record Subjective Subjective Patient was seen & assessed and interval progress reviewed with nursing and social work. Staff report the patient has continued to be superficially pleasant. He attends groups with limited participation. Diversion meeting scheduled for 04/13/19. Patient was seen today to assess progress since admission. This provider entered the patients room where he was found to be resting after breakfast. This provider offered a simple greeting, to which the patient responded with NOT. ONE. WORD. TO. YOU. TODAY. This provider asked if he would feel more comfortable talking in the afternoon, as this provider would make a point to stop back. He again states, NOT. ONE. WORD. This provider respectfully left his room, while sharing that our goal continued to be having a conversation to allow him to go outside. Pt did not respond. Physical Exam Psychiatric Orientation: alert; + uncooperative Apperance: appropriately dressed, appropriately groomed and appeared stated age Eye Contact: + fair eye contact (directly staring initially - then stares at ce iling, avoiding eye contact) Motor Behavior: no abnormal motor movements (observed to be resting on top of bed) Speech: normal rate/rhythm/volume of speech (irritable tone) Affect: + irritable affect (during conversation, but calm prior to assessment) Cognition: language grossly intact Estimated Intelligence: consistent with education level Insight: + severely impaired insight Judgement: + severely impaired judgement Vital Signs (Past 24 Hours) Last Vital Signs Temp 36.7 C 04/09/19 06:45 Pulse 73 04/09/19 06:46 Resp 18 04/09/19 06:45 BP 105/66 04/09/19 06:46 Pulse Ox 96 02/24/19 08:10 Results & Data Current Inpatient Medications Current Inpatient Medications: Current Inpatient Medications Acetaminophen (Tylenol) 650 mg PO Q4H PRN PRN Reason: Headache or Minor Fever Stop: 04/24/19 08:39 Al Hydrox/Mg Hydrox/Simethicone (Maalox) 30 ml PO Q4H PRN PRN Reason: GI Upset Stop: 04/24/19 08:39 Benztropine Mesylate (Cogentin) 0.5 mg PO BID PRN PRN Reason: dystonia Stop: 04/24/19 08:39 Bismuth Subsalicylate (Kaopectate) 15 ml PO PRN PRN PRN Reason: Loose Stool Stop: 04/24/19 08:39 Clonidine HCl (Catapres) 0.1 mg PO HS MAG Stop: 04/24/19 21:59 Last Admin: 04/08/19 20:25 Dose: 0.1 mg Documented by: Cyanocobalamin (Vitamin B-12) 500 mcg PO DAILY MAG Stop: 04/24/19 08:59 Last Admin: 04/09/19 08:32 Dose: 500 mcg Documented by: Hydroxyzine HCl (Vistaril) 50 mg PO HSZ PRN PRN Reason: Insomnia Stop: 04/24/19 08:44 Hydroxyzine HCl (Vistaril) 25 mg PO Q4H PRN PRN Reason: Anxiety Stop: 04/24/19 08:44 Magnesium Citrate (Citrate) 148 ml PO BID PRN PRN Reason: constipation Stop: 04/22/19 20:59 Last Admin: 03/23/19 17:19 Dose: 148 ml Documented by: Magnesium Hydroxide (Milk Of Magnesia) 30 ml PO DAILY PRN PRN Reason: Heartburn Stop: 04/24/19 08:44 Magnesium Oxide (Mag-Ox) 400 mg PO DAILY MAG Stop: 04/24/19 08:59 Last Admin: 04/09/19 08:32 Dose: 400 mg Documented by: Miscellaneous (Remove Nicoderm Patch) 1 ea N/A HS MAG Stop: 04/24/19 21:59 Last Admin: 04/08/19 20:25 Dose: Not Given Documented by: Multivitamins (Multivitamin Tab) 1 tab PO DAILY MAG Stop: 04/24/19 08:59 Last Admin: 04/09/19 08:32 Dose: 1 tab Documented by: Nicotine (Nicoderm Cq) 14 mg TD QAM MAG Stop: 04/24/19 08:59 Last Admin: 04/09/19 08:32 Dose: Not Given Documented by: Olanzapine (Zyprexa) 10 mg IM HS PRN PRN Reason: Undecided Stop: 04/24/19 08:44 Olanzapine (Zyprexa Zydis Od) 30 mg PO HS MAG Stop: 04/24/19 21:59 Last Admin: 04/08/19 20:25 Dose: 30 mg Documented by: Pyridoxine HCl (Vitamin B-6) 100 mg PO DAILY MAG Stop: 04/24/19 08:59 Last Admin: 04/09/19 08:32 Dose: 100 mg Documented by: Risperidone (Risperdal M) 1 mg PO BID PRN PRN Reason: psychosis Stop: 04/24/19 08:44 Sodium Chloride ([place] Nasal) 1 - 2 sprays NA PRN PRN PRN Reason: Nasal Dryness/Congestion Stop: 04/24/19 08:44 Mental Health & Subst Abuse Tx Therapist Name of Therapist: Denies Manager Financial Reporting Name of Manager Financial Reporting: Shruti Lopez Phone Number for Manager Financial Reporting: Case Management Appointment Comment: [id number], [place] [address] Post Discharge Appointments Primary Care Physician Name Of Family Doctor: Dr. Lopez Contact Information Discharge Discharge Address: [address] [place] [address], [place] [address] CPT Code CPT Code 78114 (1) Schizophrenia Schizophrenia type: paranoid schizophrenia Qualified Code(s): F20.0 - Paranoid schizophrenia (2) Hypertension Hypertension type: essential hypertension Qualified Code(s): I10 - Essential (primary) hypertension
[2019-04-09] MEDS: OLANZAPINE ZYDIS 10 MG ORALLY DIS. TAB PO SCH (20:33)
[2019-04-09] MEDS: cloNIDine HCL 0.1 MG TAB PO SCH (20:33)
[2019-04-10] MEDS: CYANOCOBALAMIN 500 MCG TABLET (VITAMIN B-12) PO SCH (09:15)
[2019-04-10] MEDS: MULTIVITAMIN TAB PO SCH (09:15)
[2019-04-10] MEDS: PYRIDOXINE HCL 50 MG TAB PO SCH (09:15)
[2019-04-10] MEDS: MAGNESIUM OXIDE 400 MG TAB PO SCH (09:15)
[2019-04-10] MEDS: NICOTINE 14 MG/24 HR PATCH TD SCH (09:20)
--- NOTE | 2019-04-10 10:46 | Psychiatric Progress Note ---
Date of Service April 10, 2019 Impression / Recommendations Impression 73-year-old male with schizophrenia who lives at the [facility] and was admitted involuntarily on 02/24/2019 with delusions, hallucinations, irritability and erratic behavior after rapid decompensation 1-2 weeks after he stopped taking his antipsychotic. He was found in a dumpster, floridly delusional, and was combative with [facility] staff. He refused resumption of olanzapine, but ultimately agreed to take aripiprazole. It initially appeared that he was responding favorably, although not completely, to the addition of aripiprazole. Because of the patient's long history of dangerous behaviors in the community associated with nonadherence with psychiatric medications, the a depo antipsychotic medication was recommended, and he initially agreed to Abimichelle Aleman; however, refused it when staff attempted to administer the injection (03/13/2019), and subsequently became much more oppositional and hostile towards staff, refusing to speak with a psychiatrist or other [facility] staff since that time. He returned to [facility], which he reports he is compliant with despite often refusing mouth checks. He refused to participate in a diversion meeting with his detention director and outpatient cyanide case hardener on 03/24/19, but attended and participated in a second follow-up meeting on 03/31/2019. Meeting have taken place regularly since, with reports patient is still not at baseline. He continues to verbalize that he is unwilling to proceed with oral medication adjustments to allow for conversion to an FARAH. He has a clear history of dangerous behaviors during periods of nonadherence with medications in the community, and inpatient psychiatric hospitalization remains the least intensive, least restrictive level of care consistent with the patient's clinical and safety needs. He was referred to [facility] 03/23/2019; accepted on 04/02/19 and bed date is pending. (1) Schizophrenia: 02/25 - Continue home medication regimen - as refusing offerings of his antipsychotic, will likely require olanzapine IM (or alternative agent) over objection, given clear evidence of paranoia and delusional thought process - previously stabilized on this medication - Pt agreeable to taking all other medications, with exception of antipsychotic as mentioned above - Admitted to a locked inpatient behavioral health unit, on q15 minute safety checks - Encourage medication initiation/adjustments as indicated - Encourage participation in group and recreational therapies - Gather collateral information from outpatient providers and detention sta ff - Suggest family meeting to involve outpatient supports in safety planning - Reschedule appropriate aftercare appointments 02/26 -Patient indicates willingness to sign a release for the [facility] detention, will get collateral from their staff. -File for 303 involuntary commitment to be held tomorrow. -Recommend medications over objection, with an IM Zyprexa backup for refusal of oral medication. Involve outpatient treatment team to discuss ways to improve stability and compliance; consider long-acting injectable antipsychotic. -Order fasting labs for monitoring on an atypical antipsychotic once patient is more cooperative. 02/27 -The patient was retrained at his involuntary commitment hearing (303) this morning. -He has continuously and consistently refused psychiatric medications to date. However, today, when I explained that that a option that might become necessary in his case is medication over objection, and an intramuscular form, the patient said that he understood and that he would try medications that I prescribe. His initial preference would be olanzapine, but because olanzapine is not available in a long acting depot form, we would first like to try aripiprazole. He indicates that he is taken aripiprazole in the past and has been able to tolerate it, although he does not believe that it has been particularly helpful. -A trial dose of aripiprazole 15 mg by mouth, as a one-time dose, has been ordered and he assessed for efficacy. 02/28 -Appears to be tolerating initiation of Abilify so far. Remains delusional, paranoid. May consider further titration tomorrow -Aricept discontinued at patient's request on 02/27/2019. The medication has not been demonstrated to be efficacious for cognitive impairment associated with long-standing schizophrenia however we should be vigilant for slowing of mentation following discontinuation. 03/01 Patient fixated and irrational regarding access to clothing item as above today. Hospital environment becoming incorporated and delusions. Consider possibility that the aripiprazole is contributing to activation. We will increase to 20 mg tomorrow and also start Risperdal 1 mg p.o. twice daily as as needed. 03/02 - Continue with aripiprazole at 20mg daily, consider need for further titration - if tolerating and effective, eventual plan will be for conversion to Abilify Maintena - Pt has not yet utilized risperidone 03/03 - Increase aripiprazole to 25mg (equivalent to 30mg pill) and change to liquid formulation to decrease risk of cheeking/nonadherence, as patient does not believe he needs medication and had been noncompliant prior to hospitalization. - Fasting glucose and lipid profile ordered for tomorrow for monitoring on an atypical antipsychotic. - Private room due to psychosis, agitation, and inappropriate disrobing/sexual behavior. - Meeting with [facility] and [facility] staff when patient able to tolerate. 03/04 - Continue aripiprazole 25mg liquid (30mg pill equivalent) and continue to observe for improvement in thought process/content - consider conversion to Maintena if effective, versus trial of another agent if improvement remains limited - Fasting labs reviewed - all values WNL - Continue medically necessary private room - Request meeting with [facility] staff, in order to obtain details about patient's proximity to baseline 03/05 -Patient refusing liquid aripiprazole, but agrees to take the pill: Ordered 30 mg daily. -Schedule meeting with his cyanide case hardener, CRR and psych rehab staff. Consider involuntary outpatient commitment at the time of discharge. 03/06 -The patient has improved in that he is more reality based at this point. He continues to harbor fixed, systematized delusions, but is generally able to focus on reality based topics. -Although the patient tells me that he does not feel that aripiprazole has been effective, he is able to accept my opinion in the opinion of the staff that he has improved in response to aripiprazole. -The patient's main objection to aripiprazole oral solution is that he does not like the way it tastes, and within this context, he tells us that he is willing to accept Abilify Maintenaand requests that it be injected into his but tock. Abilify Maintena 300 mg IM ordered, and oral Abilify discontinued. We will resume oral Abilify if the patient subsequently changes his mind and refuses the injection. 03/07 resuming abilfiy oral given his refusal of FARAH form of abilify 03/08 is taking abilify po form but refusing abilify maintena form. advise close monitoring for potential of checking given pt's tendency to not want to take medications. 03/09 -The patient is flatly refusing to take aripiprazole in the form of Abilify Maintena. He is also been hesitant to take oral Abilify, but has been doing so. -The patient's lack of cooperation is thought possibly to be related to an un-expressed desire to not be discharged back to the community. He told me today that he left his meeting with his community providers after a few seconds because "just the side of them made me extremely anxious. My pulse elevated to 140." Later, he told me that he was still anxious about it and his pulse was "still around 130." The patient allowed me to take his pulse, and it was approximately 76. At that point he said, "did I say pulse? I meant systolic blood pressure." And when I pointed out that his systolic blood pressure of 130 is not considered to be a particular concern, he said "I mean diastolic." -Our hope had been that the patient would agree to accept a Depo form of medication. He was refusing Haldol Decanoate because of various side effects. Risperidone constant was ruled out as a first-line Depo medication because of the frequency of administration (the patient tends to get into power struggles over medications) and because he says that he is sensitive to "big needles." Invega would be an option, but currently the patient is being so uncooperative that our concern would be that he would cheek the oral tablets that we would have to give him first. Accordingly, the new strategy will be to discontinue Abilify, and resume olanzapine with olanzapine IM over objection if necessary. We will begin the olanzapine Zydis 20 mg at bedtime 03/10 -The patient took the prescribed dose of olanzapine Zydis 20 mg at bedtime last night. Today, he tells me that it "did not help at all." However, staff report that he has been somewhat more agreeable, more pleasant, and less paranoid today. -As he has with other providers, today he told me that I should have given him olanzapine 5 mg "to start", and I explained that he was already on olanzapine 20 mg when he came into the hospital and we know that he is able to tolerate that dose. He tells me that he did, in fact tolerate the dose and is not aware of any side effects, but, somewhat illogically, insisted that the dose was "too high for a starting dose." 03/11 - Continue current medication regimen at this time - olanzapine 20mg daily - Encourage participation in the milieu and in group programming as tolerated 03/12 -Continue current medication regimen. The patient's condition has not yet improved. -The patient does participate in select groups, but often tends to be disruptive. 03/13 -Today, the patient seems to be somewhat more cooperative and less frankly delusional. It was possible to engage in a mostly reality based conversation for 5 or 10 minutes at a time. Also, although he was unhappy with me when I refused to provide him with a dose of Valium for anxiety, he was able to remain pleasant and calm at this time, did not storm from the room." 03/14 and 03/15 -no change in medication will work on therapeutic alliance given patient is not participating 03/16 -304 involuntary commitment granted. -Patient remains completely uncooperative with treatment, refused his Zyprexa Zydis last evening, but then ultimately took it before he received the injection. I have a high suspicion for cheeking of antipsychotic medication, and we will continue to be vigilant with mouth checks, and work towards a long- acting injectable. 03/17 -Patient has been on Zyprexa 20 mg at bedtime for 1 week, with limited response. He is refusing to discuss other medication options. Per records, he has been prescribed up to 30 mg olanzapine in the past, so will increase his dose to this previously tolerated dose, as it is 1 of the few medications he has been willing to take. Continue IM backup for refusal, and Zyprexa Zydis formulation to decrease risk of cheeking. He is not compliant with mouth checks, but have asked staff to try to observe him for 10 minutes after taking the Zydis to ensure he is not spitting it out before it dissolves. 03/18 -Continue Zyprexa Zydis 30 mg at bedtime with IM backup. Consider switch to a different medication (?oral paliperidone with IM backup) if irritability and agitation continues. He has tried virtually every atypical antipsychotic and reports none of them were effective (although some trials were short due to nonadherence) and has a history of dystonia on haloperidol. Clozapine would be a reasonable choice, but he has been unwilling to even discuss medication options. -Consider some component of cognitive decline which could be contributing to his worsening presentation and will need to be monitored and worked up further once he is more psychiatrically stable. -Refer to [facility] in the event that he does not improve and long-term inpatient treatment is needed. 03/19 - Proceed with [facility] referral. 03/20 - Continue current medication regimen; patient refused EKG and CXR yesterday - refused again today - Continue attempts to gather information to make a referral to [facility] 03/23 - Proceed with [facility] referral - patient has refused EKG and CXR for multiple attempts. We will send most recent tests available - Continue current medication regimen at this time 03/24 -Attempted to hold diversion meeting with his outpatient [facility], detention director, and the [facility]; patient refused to attend or participate in the meeting. 03/25 - 03/26 - Continue treatment plan as above - no change in patient's condition and he remains unwilling to participate meaningfully in treatment - Continue with [place] referral 03/27 -The patient has been informed that the plan at this point is to transfer him to [facility] for long-term inpatient psychiatric treatment, given his refusal to adhere with treatment and his associated behaviors in the community when not adherent with psychiatric treatment. -The patient continues to refuse mouth checks after given dosages of Zyprexa Zydis, and there is some question regarding whether he is actually ingesting this medication. He also would not cooperate with laboratory testing. -There has been a question regarding the patient's cognitive functions, and prior to admission he had been taking Aricept. When he does cooperate with this, I have not seen evidence of any substantial cognitive impairment. He may have mild cognitive impairment, but does not fully cooperate with formal cognitive assessment. He easily recalls the names of his providers, the names of the medications he is taking, the names of the various infectious agents that he believes are causing some of his psychiatric symptoms, the names of certain chemicals that he believes will rid him of the reference to infections, and is able to discuss current events such as recent news items. His assertion that he wants to return to his apartment in the community seems belied by his steadfast refusal to cooperate with those interventions I would make it possible for him to return, and there is some suspicion that although the patient remains floridly psychotic he may also be intentionally sabotaging discharge. 03/28 - 03/30 -There is been no record changer the past 2 weeks, and long-term inpatient treatment at the [facility] is indicated. 03/31 - Continue current medication regimen - Pt briefly verbalized willingness for FARAH, but was not agreeable to medication adjustments to allow for this to be possible - If he should change his mind; recommendation is for trial of Invega orally to establish tolerability, then consideration for Invega Sustenna - unwilling for this today 04/01 - 04/03 - Continue current medication regimen - Continues to refuse FARAH, will continue discussion daily as this is the reported preference of his CRR 04/04 -Questionable positive PPD measuring 13 mm but history of confinement places him at higher risk. Patient refused chest x-ray today but we will reapproach. No active symptoms of infection. Order for sputum culture and smear today for confirmation. 04/05 -PPD now appears negative. Would suggest follow through with sputum smear and culture for confirmation as previously ordered -Continue treatment plan as above 04/06 - PPD reportedly negative, patient unable to follow-up with sputum smear - therefore discontinued - Continue medication regimen as above - unwilling to discuss conversion to an FARAH - Meeting today with representation from [facility] to discuss discharge planning 04/07 - Continue medication regimen as above - remains unwilling to discuss changes - Additional meeting with CRR and CM scheduled for next week - We have been regularly assessing patient's condition and appropriateness to go outside since his 30-day treatment plan review. As patient continues to be unwilling to participate in a meaningful conversation with providers regarding his condition, we continue to be unable to determine if he is appropriate to be taken off the unit - therefore will await ability to discuss the topic in a meaningful way prior to making this determination. Will continue regular evaluation. 04/08 - 04/10 - Continue current medication regimen, as patient unwilling to discuss changes - Attempted again to determine if appropriate to go outside, patient unwilling to participate in conversation despite being told the goal of allowing him to go outside - Meeting with CM and CRR director scheduled for 04/13 at 1030 (2) Substance abuse: 02/25 - Pt has reported history of substance abuse, and recommendation has consistently been for avoidance of substances with significant abuse potential. - PDMP queried - most recent prescriptions below - lorazepam 0.5mg #60 tabs for 30 day supply - Dr. Alves - filled 02/12/2019 - alprazolam 0.5mg #90 tabs for 30 day supply - Dr. Lopez - filled 01/16/2019 - temazepam 30mg #30 caps for 30 day supply - Dr. Lopez - filled 01/16/2019 - Will continue lorazepam 0.5mg BID prn on admission, as only medication that is seemingly active - toxicology screen is negative for benzodiazepines, which questions if he has been taking the medication appropriately - Ideally will taper and discontinue the lorazepam, as recommendation remains that substances with abuse potential be avoided 02/26 -The patient's outpatient providers, during a meeting this morning, report that the patient tends to successfully convince physicians to prescribe benzodiazepines for him and that, in the past, he has abused him to the degree that he is practically obtunded. 02/27 -A repeat check of the PDMP reveals that the patient is consistently being prescribed lorazepam 0.5 mg twice daily (number 60/month) by a Dr. Brent Alves. He is also being prescribed alprazolam 0.[address] mg [address] Jeff Lopez, with the most recent previous prescription of alprazolam being on 01/16/[address] Lopez also prescribed temazepam 30 mg ca psules #30 on 01/16/2019. According to his residential providers, no temazepam capsules were found among the patient's belongings. His most recent prescription for lorazepam 0.5 mg tablets was filled on 02/12/2019. 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 In the past, he reportedly has used clonazepam and temazepam. -I advised the patient that because of his history of misuse of benzodiazepines we would not be prescribing benzodiazepines during his hospital stay. An as needed order for lorazepam has not been used during hospital stay, and I discontinued the order today. 03/02 - Will need to coordinate care with his PCP and outpatient psychiatrist prior to discharge regarding the above. 03/04 - Charge nurse spoke with the above offices regarding concern for continued benzodiazepine prescriptions - Records will be faxed to their offices on discharge, as all benzodiazepines were discontinued during this hospitalization 03/06 -The patient did not request benzodiazepines and did not complain of anxiety today. I suggested to him that perhaps Abilify is also helping with anxiety in his case, and he responded by saying "perhaps." 03/09 -Today, the patient is insisting that what he needs is "benzodiazepines," and explains that the reason he "needs" benzodiazepines is that he has "benzodiazepine receptors," and that he is the only medications that work. He is unable to process warnings about the risks of benzodiazepines in the elderly, including increased risk of falls and mortality. Clearly, the patient is seeking benzodiazepines and has no insight into the associated risks. He also insists that he has never had trouble with benzodiazepines in the past, although there is well-documented of this. 03/10 -Today, the patient repeated his insistence that he needs benzodiazepines and that benzodiazepines are the only medications that work because he has " benzodiazepine receptors." After being told that everyone has central nervous system receptors to which benzodiazepines may attach, he replied, "That may be, but some of people need to have benzodiazepines forearm benzodiazepine receptors. 03/12 -Continues to request Benzodiazepines. 03/13 -Requests Valium for his "benzodiazepines receptors." 03/27 -Refuses to cooperate with assessment today, but has recently told staff that he needs "either Valium or Ativan." -The patient apparently has no working insight into his history of abuse of prescription medications (benzodiazepines). (3) Hypertension: 02/25 - Continue home dose of clonidine 0.1mg qHS 03/01 Watch mildly elevated blood pressures as patient has been refusing clonidine 03/03 - BP normal past two days, and low today 03/10 -The patient's blood pressure today was 136/73. His pulse was 71 03/14 - elevated BP it is not urgent but will need monitored. 03/15 - BP WNL 03/26 - BP continues to be WNL 04/02 - BP remains within normal limits; continue daily vitals per standard admission order set - Will consider acute phase of this problem resolved at this time Inventory Assets Strengths: -Intelligence. Support of community providers. Well educated. Needs: Resume symptom-stabilizing medication regimen, coordinate care with detention Risk Factors Assessment Male: Yes : Yes Do You Have Access To A Gun?: No Health Problems: Yes Mental Health Diagnoses: Yes Substance Use Disorders: Yes Protective Factors Assessment Orthodoxy Beliefs: No : No Responsible for Young Children: No Employed: No Stable Relationships: No Supportive Family: No Good Rapport with Provider: No Interval History Identifying Information SCOTT ROBERTO is a 73-year-old M who currently lives at a [facility] in [place]. Pt has a history of schizophrenia and is known to our unit from several previous admissions, most recently in 09/2016. Pt and was admitted on 02/24/19 16:40 on a 302 involuntary commitment for exacerbation of schizophrenia and heightened paranoia resulting in belief he needed to hide in a dumpster to seek refuge from impending bombings. Pt was found by [facility] staff and brought to the ED by police. He is on a 304 involuntary commitment as of 03/16/19; pt was accepted at [facility] on 04/02/19, awaiting bed date. Chief Complaint "...". Review of Systems Notes Patient was uncooperative with assessment, therefore unable to adequately review any physical concerns. Patient did not verbalize any complaints today. Sleep Information Total Hours of Sleep: 7.5 Sleep Comments: pton q-15 minute checks Meal Information Percent Meal Consumed - Breakfast: 100 Percent Meal Consumed - Lunch: 100 Percent Meal Consumed - Dinner: 100 Nutrition Comment: per meal record Subjective Subjective Patient was seen & assessed and interval progress reviewed with treatment team. Staff report the patient has continued to attend to his ADLs. He has been attending some groups, but contribution is limited. He is scheduled for a diversion meeting on 04/13/2019 at 10:30 AM. Patient was seen today to assess progress since admission. This provider offered greetings, to which the patient did not respond. This provider made several other statements which patient again did not respond to. Provider asked if patient was giving her the "silent treatment", to which patient stated "yes." This provider shared with the patient her concern that if he is not cooperating with daily psychiatric assessments, [facility] bed may not be available for him to return to. This provider stated that she wished to work with the patient to ensure that if his desire was to go back to the [facility] that we could focus on this. This provider asked if the patient would be willing to speak about the topic later in the afternoon, to which the patient states "leave me alone." Patient then states "leave my room now." Provider cooperated with patient's request. Physical Exam Psychiatric Orientation: alert; + uncooperative Apperance: appropriately dressed, appropriately groomed and appeared stated age Eye Contact: + poor eye contact (No direct eye contact, lays with eyes closed for majority of visit) Motor Behavior: no abnormal motor movements (Observed while laying in bed with arms and legs crossed) Speech: normal rate/rhythm/volume of speech (Brief statements given with rather irritable tone) Affect: + irritable affect Estimated Intelligence: consistent with education level Insight: + severely impaired insight Judgement: + severely impaired judgement Vital Signs (Past 24 Hours) Last Vital Signs Temp 36.6 C 04/10/19 06:33 Pulse 81 04/10/19 06:38 Resp 18 04/10/19 06:33 BP 131/84 04/10/19 06:38 Pulse Ox 96 02/24/19 08:10 Results & Data Current Inpatient Medications Current Inpatient Medications: Current Inpatient Medications Acetaminophen (Tylenol) 650 mg PO Q4H PRN PRN Reason: Headache or Minor Fever Stop: 04/24/19 08:39 Al Hydrox/Mg Hydrox/Simethicone (Maalox) 30 ml PO Q4H PRN PRN Reason: GI Upset Stop: 04/24/19 08:39 Benztropine Mesylate (Cogentin) 0.5 mg PO BID PRN PRN Reason: dystonia Stop: 04/24/19 08:39 Bismuth Subsalicylate (Kaopectate) 15 ml PO PRN PRN PRN Reason: Loose Stool Stop: 04/24/19 08:39 Clonidine HCl (Catapres) 0.1 mg PO HS MAG Stop: 04/24/19 21:59 Last Admin: 04/09/19 20:33 Dose: 0.1 mg Documented by: Cyanocobalamin (Vitamin B-12) 500 mcg PO DAILY MAG Stop: 04/24/19 08:59 Last Admin: 04/10/19 09:15 Dose: 500 mcg Documented by: Hydroxyzine HCl (Vistaril) 50 mg PO HSZ PRN PRN Reason: Insomnia Stop: 04/24/19 08:44 Hydroxyzine HCl (Vistaril) 25 mg PO Q4H PRN PRN Reason: Anxiety Stop: 04/24/19 08:44 Magnesium Citrate (Citrate) 148 ml PO BID PRN PRN Reason: constipation Stop: 04/22/19 20:59 Last Admin: 03/23/19 17:19 Dose: 148 ml Documented by: Magnesium Hydroxide (Milk Of Magnesia) 30 ml PO DAILY PRN PRN Reason: Heartburn Stop: 04/24/19 08:44 Magnesium Oxide (Mag-Ox) 400 mg PO DAILY [facility] Stop: 04/24/19 08:59 Last Admin: 04/10/19 09:15 Dose: 400 mg Documented by: Miscellaneous (Remove Nicoderm Patch) 1 ea N/A HS MAG Stop: 04/24/19 21:59 Last Admin: 04/09/19 20:37 Dose: Not Given Documented by: Multivitamins (Multivitamin Tab) 1 tab PO DAILY MAG Stop: 04/24/19 08:59 Last Admin: 04/10/19 09:15 Dose: 1 tab Documented by: Nicotine (Nicoderm Cq) 14 mg TD QAM [facility] Stop: 04/24/19 08:59 Last Admin: 04/10/19 09:20 Dose: 14 mg Documented by: Olanzapine (Zyprexa) 10 mg IM HS PRN PRN Reason: Undecided Stop: 04/24/19 08:44 Olanzapine (Zyprexa Zydis Od) 30 mg PO HS MAG Stop: 04/24/19 21:59 Last Admin: 04/09/19 20:33 Dose: 30 mg Documented by: Pyridoxine HCl (Vitamin B-6) 100 mg PO DAILY [facility] Stop: 04/24/19 08:59 Last Admin: 04/10/19 09:15 Dose: 100 mg Documented by: Risperidone (Risperdal M) 1 mg PO BID PRN PRN Reason: psychosis Stop: 04/24/19 08:44 Sodium Chloride (Kendall Nasal) 1 - 2 sprays NA PRN PRN PRN Reason: Nasal Dryness/Congestion Stop: 04/24/19 08:44 Mental Health & Subst Abuse Tx Therapist Name of Therapist: Denies Remote Control Assembler Name of Remote Control Assembler: Shruti Lopez Phone Number for Remote Control Assembler: Case Management Appointment Comment: [phone], [place] [address] Post Discharge Appointments Primary Care Physician Name Of Family Doctor: Dr. Lopez Contact Information Discharge Discharge Address: [address] [place] [address], [place] [address] CPT Code CPT Code 60152 (1) Schizophrenia Schizophrenia type: paranoid schizophrenia Qualified Code(s): F20.0 - Paranoid schizophrenia (2) Hypertension Hypertension type: essential hypertension Qualified Code(s): I10 - Essential (primary) hypertension
[2019-04-10] MEDS: OLANZAPINE ZYDIS 10 MG ORALLY DIS. TAB PO SCH (20:31)
[2019-04-10] MEDS: cloNIDine HCL 0.1 MG TAB PO SCH (20:31)
--- NOTE | 2019-04-11 08:02 | Psychiatric Progress Note ---
Date of Service April 11, 2019 Impression / Recommendations Impression 73-year-old male with schizophrenia who lives at the [facility] and was admitted involuntarily on 02/24/2019 with delusions, hallucinations, irritability and erratic behavior after rapid decompensation 1-2 weeks after he stopped taking his antipsychotic. He was found in a dumpster, floridly delusional, and was combative with [facility] staff. He refused resumption of olanzapine, but ultimately agreed to take aripiprazole. It initially appeared that he was responding favorably, although not completely, to the addition of aripiprazole. Because of the patient's long history of dangerous behaviors in the community associated with nonadherence with psychiatric medications, the a depo antipsychotic medication was recommended, and he initially agreed to Abimichelle Aleman; however, refused it when staff attempted to administer the injection (03/13/2019), and subsequently became much more oppositional and hostile towards staff, refusing to speak with a psychiatrist or other [facility] staff since that time. He returned to [facility], which he reports he is compliant with despite often refusing mouth checks. He refused to participate in a diversion meeting with his prison director and outpatient supervisor case loading on 03/24/19, but attended and participated in a second follow-up meeting on 03/31/2019. Meeting have taken place regularly since, with reports patient is still not at baseline. He continues to verbalize that he is unwilling to proceed with oral medication adjustments to allow for conversion to an FARAH. He has a clear history of dangerous behaviors during periods of nonadherence with medications in the community, and inpatient psychiatric hospitalization remains the least intensive, least restrictive level of care consistent with the patient's clinical and safety needs. He was referred to [facility] 03/23/2019; accepted on 04/02/19 and bed date is pending. (1) Schizophrenia: 02/25 - Continue home medication regimen - as refusing offerings of his antipsychotic, will likely require olanzapine IM (or alternative agent) over objection, given clear evidence of paranoia and delusional thought process - previously stabilized on this medication - Pt agreeable to taking all other medications, with exception of antipsychotic as mentioned above - Admitted to a locked inpatient behavioral health unit, on q15 minute safety checks - Encourage medication initiation/adjustments as indicated - Encourage participation in group and recreational therapies - Gather collateral information from outpatient providers and prison sta ff - Suggest family meeting to involve outpatient supports in safety planning - Reschedule appropriate aftercare appointments 02/26 -Patient indicates willingness to sign a release for the [facility] prison, will get collateral from their staff. -File for 303 involuntary commitment to be held tomorrow. -Recommend medications over objection, with an IM Zyprexa backup for refusal of oral medication. Involve outpatient treatment team to discuss ways to improve stability and compliance; consider long-acting injectable antipsychotic. -Order fasting labs for monitoring on an atypical antipsychotic once patient is more cooperative. 02/27 -The patient was retrained at his involuntary commitment hearing (303) this morning. -He has continuously and consistently refused psychiatric medications to date. However, today, when I explained that that a option that might become necessary in his case is medication over objection, and an intramuscular form, the patient said that he understood and that he would try medications that I prescribe. His initial preference would be olanzapine, but because olanzapine is not available in a long acting depot form, we would first like to try aripiprazole. He indicates that he is taken aripiprazole in the past and has been able to tolerate it, although he does not believe that it has been particularly helpful. -A trial dose of aripiprazole 15 mg by mouth, as a one-time dose, has been ordered and he assessed for efficacy. 02/28 -Appears to be tolerating initiation of Abilify so far. Remains delusional, paranoid. May consider further titration tomorrow -Aricept discontinued at patient's request on 02/27/2019. The medication has not been demonstrated to be efficacious for cognitive impairment associated with long-standing schizophrenia however we should be vigilant for slowing of mentation following discontinuation. 03/01 Patient fixated and irrational regarding access to clothing item as above today. Hospital environment becoming incorporated and delusions. Consider possibility that the aripiprazole is contributing to activation. We will increase to 20 mg tomorrow and also start Risperdal 1 mg p.o. twice daily as as needed. 03/02 - Continue with aripiprazole at 20mg daily, consider need for further titration - if tolerating and effective, eventual plan will be for conversion to Abilify Maintena - Pt has not yet utilized risperidone 03/03 - Increase aripiprazole to 25mg (equivalent to 30mg pill) and change to liquid formulation to decrease risk of cheeking/nonadherence, as patient does not believe he needs medication and had been noncompliant prior to hospitalization. - Fasting glucose and lipid profile ordered for tomorrow for monitoring on an atypical antipsychotic. - Private room due to psychosis, agitation, and inappropriate disrobing/sexual behavior. - Meeting with [facility] and [facility] staff when patient able to tolerate. 03/04 - Continue aripiprazole 25mg liquid (30mg pill equivalent) and continue to observe for improvement in thought process/content - consider conversion to Maintena if effective, versus trial of another agent if improvement remains limited - Fasting labs reviewed - all values WNL - Continue medically necessary private room - Request meeting with [facility] staff, in order to obtain details about patient's proximity to baseline 03/05 -Patient refusing liquid aripiprazole, but agrees to take the pill: Ordered 30 mg daily. -Schedule meeting with his supervisor case loading, [facility] and psych rehab staff. Consider involuntary outpatient commitment at the time of discharge. 03/06 -The patient has improved in that he is more reality based at this point. He continues to harbor fixed, systematized delusions, but is generally able to focus on reality based topics. -Although the patient tells me that he does not feel that aripiprazole has been effective, he is able to accept my opinion in the opinion of the staff that he has improved in response to aripiprazole. -The patient's main objection to aripiprazole oral solution is that he does not like the way it tastes, and within this context, he tells us that he is willing to accept Abilify Maintenaand requests that it be injected into his but tock. Abilify Maintena 300 mg IM ordered, and oral Abilify discontinued. We will resume oral Abilify if the patient subsequently changes his mind and refuses the injection. 03/07 resuming abilfiy oral given his refusal of FARAH form of abilify 03/08 is taking abilify po form but refusing abilify maintena form. advise close monitoring for potential of checking given pt's tendency to not want to take medications. 03/09 -The patient is flatly refusing to take aripiprazole in the form of Abilify Maintena. He is also been hesitant to take oral Abilify, but has been doing so. -The patient's lack of cooperation is thought possibly to be related to an un-expressed desire to not be discharged back to the community. He told me today that he left his meeting with his community providers after a few seconds because "just the side of them made me extremely anxious. My pulse elevated to 140." Later, he told me that he was still anxious about it and his pulse was "still around 130." The patient allowed me to take his pulse, and it was approximately 76. At that point he said, "did I say pulse? I meant systolic blood pressure." And when I pointed out that his systolic blood pressure of 130 is not considered to be a particular concern, he said "I mean diastolic." -Our hope had been that the patient would agree to accept a Depo form of medication. He was refusing Haldol Decanoate because of various side effects. Risperidone constant was ruled out as a first-line Depo medication because of the frequency of administration (the patient tends to get into power struggles over medications) and because he says that he is sensitive to "big needles." Invega would be an option, but currently the patient is being so uncooperative that our concern would be that he would cheek the oral tablets that we would have to give him first. Accordingly, the new strategy will be to discontinue Abilify, and resume olanzapine with olanzapine IM over objection if necessary. We will begin the olanzapine Zydis 20 mg at bedtime 03/10 -The patient took the prescribed dose of olanzapine Zydis 20 mg at bedtime last night. Today, he tells me that it "did not help at all." However, staff report that he has been somewhat more agreeable, more pleasant, and less paranoid today. -As he has with other providers, today he told me that I should have given him olanzapine 5 mg "to start", and I explained that he was already on olanzapine 20 mg when he came into the hospital and we know that he is able to tolerate that dose. He tells me that he did, in fact tolerate the dose and is not aware of any side effects, but, somewhat illogically, insisted that the dose was "too high for a starting dose." 03/11 - Continue current medication regimen at this time - olanzapine 20mg daily - Encourage participation in the milieu and in group programming as tolerated 03/12 -Continue current medication regimen. The patient's condition has not yet improved. -The patient does participate in select groups, but often tends to be disruptive. 03/13 -Today, the patient seems to be somewhat more cooperative and less frankly delusional. It was possible to engage in a mostly reality based conversation for 5 or 10 minutes at a time. Also, although he was unhappy with me when I refused to provide him with a dose of Valium for anxiety, he was able to remain pleasant and calm at this time, did not storm from the room." 03/14 and 03/15 -no change in medication will work on therapeutic alliance given patient is not participating 03/16 -304 involuntary commitment granted. -Patient remains completely uncooperative with treatment, refused his Zyprexa Zydis last evening, but then ultimately took it before he received the injection. I have a high suspicion for cheeking of antipsychotic medication, and we will continue to be vigilant with mouth checks, and work towards a long- acting injectable. 03/17 -Patient has been on Zyprexa 20 mg at bedtime for 1 week, with limited response. He is refusing to discuss other medication options. Per records, he has been prescribed up to 30 mg olanzapine in the past, so will increase his dose to this previously tolerated dose, as it is 1 of the few medications he has been willing to take. Continue IM backup for refusal, and Zyprexa Zydis formulation to decrease risk of cheeking. He is not compliant with mouth checks, but have asked staff to try to observe him for 10 minutes after taking the Zydis to ensure he is not spitting it out before it dissolves. 03/18 -Continue Zyprexa Zydis 30 mg at bedtime with IM backup. Consider switch to a different medication (?oral paliperidone with IM backup) if irritability and agitation continues. He has tried virtually every atypical antipsychotic and reports none of them were effective (although some trials were short due to nonadherence) and has a history of dystonia on haloperidol. Clozapine would be a reasonable choice, but he has been unwilling to even discuss medication options. -Consider some component of cognitive decline which could be contributing to his worsening presentation and will need to be monitored and worked up further once he is more psychiatrically stable. -Refer to [facility] in the event that he does not improve and long-term inpatient treatment is needed. 03/19 - Proceed with [facility] referral. 03/20 - Continue current medication regimen; patient refused EKG and CXR yesterday - refused again today - Continue attempts to gather information to make a referral to [facility] 03/23 - Proceed with [facility] referral - patient has refused EKG and CXR for multiple attempts. We will send most recent tests available - Continue current medication regimen at this time 03/24 -Attempted to hold diversion meeting with his outpatient [facility], prison director, and the [facility] MH/ID; patient refused to attend or participate in the meeting. 03/25 - 03/26 - Continue treatment plan as above - no change in patient's condition and he remains unwilling to participate meaningfully in treatment - Continue with [place] referral 03/27 -The patient has been informed that the plan at this point is to transfer him to [facility] for long-term inpatient psychiatric treatment, given his refusal to adhere with treatment and his associated behaviors in the community when not adherent with psychiatric treatment. -The patient continues to refuse mouth checks after given dosages of Zyprexa Zydis, and there is some question regarding whether he is actually ingesting this medication. He also would not cooperate with laboratory testing. -There has been a question regarding the patient's cognitive functions, and prior to admission he had been taking Aricept. When he does cooperate with this, I have not seen evidence of any substantial cognitive impairment. He may have mild cognitive impairment, but does not fully cooperate with formal cognitive assessment. He easily recalls the names of his providers, the names of the medications he is taking, the names of the various infectious agents that he believes are causing some of his psychiatric symptoms, the names of certain chemicals that he believes will rid him of the reference to infections, and is able to discuss current events such as recent news items. His assertion that he wants to return to his apartment in the community seems belied by his steadfast refusal to cooperate with those interventions I would make it possible for him to return, and there is some suspicion that although the patient remains floridly psychotic he may also be intentionally sabotaging discharge. 03/28 - 03/30 -There is been no exchange trouble shooter the past 2 weeks, and [facility]. 03/31 - Continue current medication regimen - Pt briefly verbalized willingness for FARAH, but was not agreeable to medication adjustments to allow for this to be possible - If he should change his mind; recommendation is for trial of Invega orally to establish tolerability, then consideration for Invega Sustenna - unwilling for this today 04/01 - 04/03 - Continue current medication regimen - Continues to refuse FARAH, will continue discussion daily as this is the reported preference of his [facility] 04/04 -Questionable positive PPD measuring 13 mm but history of confinement places him at higher risk. Patient refused chest x-ray today but we will reapproach. No active symptoms of infection. Order for sputum culture and smear today for confirmation. 04/05 -PPD now appears negative. Would suggest follow through with sputum smear and culture for confirmation as previously ordered -Continue treatment plan as above 04/06 - PPD reportedly negative, patient unable to follow-up with sputum smear - therefore discontinued - Continue medication regimen as above - unwilling to discuss conversion to an FARAH - Meeting today with representation from [facility] to discuss discharge planning 04/07 - Continue medication regimen as above - remains unwilling to discuss changes - Additional meeting with [facility] and CM scheduled for next week - We have been regularly assessing patient's condition and appropriateness to go outside since his 30-day treatment plan review. As patient continues to be unwilling to participate in a meaningful conversation with providers regarding his condition, we continue to be unable to determine if he is appropriate to be taken off the unit - therefore will await ability to discuss the topic in a meaningful way prior to making this determination. Will continue regular evaluation. 04/08 - 04/11 - Continue current medication regimen, as patient unwilling to discuss changes - Attempted again to determine if appropriate to go outside, patient unwilling to participate in conversation despite being told the goal of allowing him to go outside - Meeting with CM and [facility] director scheduled for 04/13 at 1030 (2) Substance abuse: 02/25 - Pt has reported history of substance abuse, and recommendation has consistently been for avoidance of substances with significant abuse potential. - PDMP queried - most recent prescriptions below - lorazepam 0.5mg #60 tabs for 30 day supply - Dr. Alves - filled 02/12/2019 - alprazolam 0.5mg #90 tabs for 30 day supply - Dr. Lopez - filled 01/16/2019 - temazepam 30mg #30 caps for 30 day supply - Dr. Lopez - filled 01/16/2019 - Will continue lorazepam 0.5mg BID prn on admission, as only medication that is seemingly active - toxicology screen is negative for benzodiazepines, which questions if he has been taking the medication appropriately - Ideally will taper and discontinue the lorazepam, as recommendation remains that substances with abuse potential be avoided 02/26 -The patient's outpatient providers, during a meeting this morning, report that the patient tends to successfully convince physicians to prescribe benzodiazepines for him and that, in the past, he has abused him to the degree that he is practically obtunded. 02/27 -A repeat check of the PDMP reveals that the patient is consistently being prescribed lorazepam 0.5 mg twice daily (number 60/month) by a Dr. Brent Alves. He is also being prescribed alprazolam 0.[address] mg [address] Jeff Lopez, with the most recent previous prescription of alprazolam being on 01/16/[address] Lopez also prescribed temazepam 30 mg ca psules #30 on 01/16/2019. According to his residential providers, no temazepam capsules were found among the patient's belongings. His most recent prescription for lorazepam 0.5 mg tablets was filled on 02/12/2019. 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 In the past, he reportedly has used clonazepam and temazepam. -I advised the patient that because of his history of misuse of benzodiazepines we would not be prescribing benzodiazepines during his hospital stay. An as needed order for lorazepam has not been used during hospital stay, and I discontinued the order today. 03/02 - Will need to coordinate care with his PCP and outpatient psychiatrist prior to discharge regarding the above. 03/04 - Charge nurse spoke with the above offices regarding concern for continued benzodiazepine prescriptions - Records will be faxed to their offices on discharge, as all benzodiazepines were discontinued during this hospitalization 03/06 -The patient did not request benzodiazepines and did not complain of anxiety today. I suggested to him that perhaps Abilify is also helping with anxiety in his case, and he responded by saying "perhaps." 03/09 -Today, the patient is insisting that what he needs is "benzodiazepines," and explains that the reason he "needs" benzodiazepines is that he has "benzodiazepine receptors," and that he is the only medications that work. He is unable to process warnings about the risks of benzodiazepines in the elderly, including increased risk of falls and mortality. Clearly, the patient is seeking benzodiazepines and has no insight into the associated risks. He also insists that he has never had trouble with benzodiazepines in the past, although there is well-documented of this. 03/10 -Today, the patient repeated his insistence that he needs benzodiazepines and that benzodiazepines are the only medications that work because he has " benzodiazepine receptors." After being told that everyone has central nervous system receptors to which benzodiazepines may attach, he replied, "That may be, but some of people need to have benzodiazepines forearm benzodiazepine receptors. 03/12 -Continues to request Benzodiazepines. 03/13 -Requests Valium for his "benzodiazepines receptors." 03/27 -Refuses to cooperate with assessment today, but has recently told staff that he needs "either Valium or Ativan." -The patient apparently has no working insight into his history of abuse of prescription medications (benzodiazepines). (3) Hypertension: 02/25 - Continue home dose of clonidine 0.1mg qHS 03/01 Watch mildly elevated blood pressures as patient has been refusing clonidine 03/03 - BP normal past two days, and low today 03/10 -The patient's blood pressure today was 136/73. His pulse was 71 03/14 - elevated BP it is not urgent but will need monitored. 03/15 - BP WNL 03/26 - BP continues to be WNL 04/02 - BP remains within normal limits; continue daily vitals per standard admission order set - Will consider acute phase of this problem resolved at this time Inventory Assets Strengths: -Intelligence. Support of community providers. Well educated. Needs: Resume symptom-stabilizing medication regimen, coordinate care with prison Risk Factors Assessment Male: Yes : Yes Do You Have Access To A Gun?: No Health Problems: Yes Mental Health Diagnoses: Yes Substance Use Disorders: Yes Protective Factors Assessment Yazidi Beliefs: No : No Responsible for Young Children: No Employed: No Stable Relationships: No Supportive Family: No Good Rapport with Provider: No Interval History Identifying Information SCOTT ROBERTO is a 73-year-old M who currently lives at a [facility] in [place]. Pt has a history of schizophrenia and is known to our unit from several previous admissions, most recently in 09/2016. Pt and was admitted on 02/24/19 16:40 on a 302 involuntary commitment for exacerbation of schizophrenia and heightened paranoia resulting in belief he needed to hide in a dumpster to seek refuge from impending bombings. Pt was found by [facility] staff and brought to the ED by police. He is on a 304 involuntary commitment as of 03/16/19; pt was accepted at [facility] on 04/02/19, awaiting bed date. Chief Complaint "Oh gees, Please leave me alone." Review of Systems Notes Pt was uncooperative with interview unable to adequately assess review of systems Sleep Information Total Hours of Sleep: 7.5 Sleep Comments: pton q-15 minute checks Meal Information Percent Meal Consumed - Breakfast: 100 Percent Meal Consumed - Lunch: 100 Percent Meal Consumed - Dinner: 100 Nutrition Comment: per meal record Subjective Subjective Patient was seen & assessed and interval progress reviewed with nursing and social work. Staff reports the patient continued to be irritable most of the day yesterday. He attempted to attend groups, but was unable to tolerate most of them, leaving early. Pt was seen today to assess progress since admission. This provider greeted the patient, and he stated "oh gees, please leave me alone." Pt was informed this provider was personal lines appraiser this weekend and would be attempting to speak with him further. To let her know if there were any concerns. He had no response. Physical Exam Psychiatric Orientation: alert; + uncooperative Apperance: appropriately dressed, appropriately groomed and appeared stated age Eye Contact: good eye contact Motor Behavior: no abnormal motor movements (observed while laying in bed) Speech: normal rate/rhythm/volume of speech (brief responses, irritable tone) Affect: + flat affect and + irritable affect Cognition: attention grossly intact and language grossly intact Estimated Intelligence: consistent with education level Insight: + severely impaired insight Judgement: + severely impaired judgement Vital Signs (Past 24 Hours) Last Vital Signs Temp 36.6 C 04/11/19 06:49 Pulse 79 04/11/19 06:51 Resp 18 04/11/19 06:49 BP 128/79 04/11/19 06:51 Pulse Ox 96 02/24/19 08:10 Results & Data Current Inpatient Medications Current Inpatient Medications: Current Inpatient Medications Acetaminophen (Tylenol) 650 mg PO Q4H PRN PRN Reason: Headache or Minor Fever Stop: 04/24/19 08:39 Al Hydrox/Mg Hydrox/Simethicone (Maalox) 30 ml PO Q4H PRN PRN Reason: GI Upset Stop: 04/24/19 08:39 Benztropine Mesylate (Cogentin) 0.5 mg PO BID PRN PRN Reason: dystonia Stop: 04/24/19 08:39 Bismuth Subsalicylate (Kaopectate) 15 ml PO PRN PRN PRN Reason: Loose Stool Stop: 04/24/19 08:39 Clonidine HCl (Catapres) 0.1 mg PO HS MAG Stop: 04/24/19 21:59 Last Admin: 04/10/19 20:31 Dose: 0.1 mg Documented by: Cyanocobalamin (Vitamin B-12) 500 mcg PO DAILY MAG Stop: 04/24/19 08:59 Last Admin: 04/10/19 09:15 Dose: 500 mcg Documented by: Hydroxyzine HCl (Vistaril) 50 mg PO HSZ PRN PRN Reason: Insomnia Stop: 04/24/19 08:44 Hydroxyzine HCl (Vistaril) 25 mg PO Q4H PRN PRN Reason: Anxiety Stop: 04/24/19 08:44 Magnesium Citrate (Citrate) 148 ml PO BID PRN PRN Reason: constipation Stop: 04/22/19 20:59 Last Admin: 03/23/19 17:19 Dose: 148 ml Documented by: Magnesium Hydroxide (Milk Of Magnesia) 30 ml PO DAILY PRN PRN Reason: Heartburn Stop: 04/24/19 08:44 Magnesium Oxide (Mag-Ox) 400 mg PO DAILY MAG Stop: 04/24/19 08:59 Last Admin: 04/10/19 09:15 Dose: 400 mg Documented by: Miscellaneous (Remove Nicoderm Patch) 1 ea N/A HS MAG Stop: 04/24/19 21:59 Last Admin: 04/10/19 20:34 Dose: 1 ea Documented by: Multivitamins (Multivitamin Tab) 1 tab PO DAILY MAG Stop: 04/24/19 08:59 Last Admin: 04/10/19 09:15 Dose: 1 tab Documented by: Nicotine (Nicoderm Cq) 14 mg TD QAM MAG Stop: 04/24/19 08:59 Last Admin: 04/10/19 09:20 Dose: 14 mg Documented by: Olanzapine (Zyprexa) 10 mg IM HS PRN PRN Reason: Undecided Stop: 04/24/19 08:44 Olanzapine (Zyprexa Zydis Od) 30 mg PO HS MAG Stop: 04/24/19 21:59 Last Admin: 04/10/19 20:31 Dose: 30 mg Documented by: Pyridoxine HCl (Vitamin B-6) 100 mg PO DAILY MAG Stop: 04/24/19 08:59 Last Admin: 04/10/19 09:15 Dose: 100 mg Documented by: Risperidone (Risperdal M) 1 mg PO BID PRN PRN Reason: psychosis Stop: 04/24/19 08:44 Sodium Chloride ([place] Nasal) 1 - 2 sprays NA PRN PRN PRN Reason: Nasal Dryness/Congestion Stop: 04/24/19 08:44 Mental Health & Subst Abuse Tx Therapist Name of Therapist: [facility] Name of [facility]: Shruti Lopez Phone Number for [facility]: Case Management Appointment Comment: [phone], [place] [address] Post Discharge Appointments Primary Care Physician Name Of Family Doctor: Dr. Lopez Contact Information Discharge Discharge Address: [address] [place] [id number] CPT Code CPT Code 18405 (1) Schizophrenia Schizophrenia type: paranoid schizophrenia Qualified Code(s): F20.0 - Paranoid schizophrenia (2) Hypertension Hypertension type: essential hypertension Qualified Code(s): I10 - Essential (primary) hypertension
[2019-04-11] MEDS: MULTIVITAMIN TAB PO SCH (08:49)
[2019-04-11] MEDS: CYANOCOBALAMIN 500 MCG TABLET (VITAMIN B-12) PO SCH (08:49)
[2019-04-11] MEDS: MAGNESIUM OXIDE 400 MG TAB PO SCH (08:49)
[2019-04-11] MEDS: PYRIDOXINE HCL 50 MG TAB PO SCH (08:49)
[2019-04-11] MEDS: NICOTINE 14 MG/24 HR PATCH TD SCH ×2 (08:50→10:22)
[2019-04-11] MEDS: cloNIDine HCL 0.1 MG TAB PO SCH (20:34)
[2019-04-11] MEDS: OLANZAPINE ZYDIS 10 MG ORALLY DIS. TAB PO SCH (20:34)
--- NOTE | 2019-04-12 08:02 | Psychiatric Progress Note ---
Date of Service April 12, 2019 Impression / Recommendations Impression 74-year-old male with schizophrenia who lives at the [facility] and was admitted involuntarily on 02/24/2019 with delusions, hallucinations, irritability and erratic behavior after rapid decompensation 1-2 weeks after he stopped taking his antipsychotic. He was found in a dumpster, floridly delusional, and was combative with [facility] staff. He refused resumption of olanzapine, but ultimately agreed to take aripiprazole. It initially appeared that he was responding favorably, although not completely, to the addition of aripiprazole. Because of the patient's long history of dangerous behaviors in the community associated with nonadherence with psychiatric medications, the a depo antipsychotic medication was recommended, and he initially agreed to Abimichelle Aleman; however, refused it when staff attempted to administer the injection (03/13/2019), and subsequently became much more oppositional and hostile towards staff, refusing to speak with a psychiatrist or other [facility] staff since that time. He returned to [facility], which he reports he is compliant with despite often refusing mouth checks. He refused to participate in a diversion meeting with his jail director and outpatient lead case manager on 03/24/19, but attended and participated in a second follow-up meeting on 03/31/2019. Meeting have taken place regularly since, with reports patient is still not at baseline. He continues to verbalize that he is unwilling to proceed with oral medication adjustments to allow for conversion to an FARAH. He has a clear history of dangerous behaviors during periods of nonadherence with medications in the community, and inpatient psychiatric hospitalization remains the least intensive, least restrictive level of care consistent with the patient's clinical and safety needs. He was referred to [facility] 03/23/2019; accepted on 04/02/19 and bed date is pending. (1) Schizophrenia: 02/25 - Continue home medication regimen - as refusing offerings of his antipsychotic, will likely require olanzapine IM (or alternative agent) over objection, given clear evidence of paranoia and delusional thought process - previously stabilized on this medication - Pt agreeable to taking all other medications, with exception of antipsychotic as mentioned above - Admitted to a locked inpatient behavioral health unit, on q15 minute safety checks - Encourage medication initiation/adjustments as indicated - Encourage participation in group and recreational therapies - Gather collateral information from outpatient providers and jail sta ff - Suggest family meeting to involve outpatient supports in safety planning - Reschedule appropriate aftercare appointments 02/26 -Patient indicates willingness to sign a release for the [facility], will get collateral from their staff. -File for 303 involuntary commitment to be held tomorrow. -Recommend medications over objection, with an IM Zyprexa backup for refusal of oral medication. Involve outpatient treatment team to discuss ways to improve stability and compliance; consider long-acting injectable antipsychotic. -Order fasting labs for monitoring on an atypical antipsychotic once patient is more cooperative. 02/27 -The patient was retrained at his involuntary commitment hearing (303) this morning. -He has continuously and consistently refused psychiatric medications to date. However, today, when I explained that that a option that might become necessary in his case is medication over objection, and an intramuscular form, the patient said that he understood and that he would try medications that I prescribe. His initial preference would be olanzapine, but because olanzapine is not available in a long acting depot form, we would first like to try aripiprazole. He indicates that he is taken aripiprazole in the past and has been able to tolerate it, although he does not believe that it has been particularly helpful. -A trial dose of aripiprazole 15 mg by mouth, as a one-time dose, has been ordered and he assessed for efficacy. 02/28 -Appears to be tolerating initiation of Abilify so far. Remains delusional, paranoid. May consider further titration tomorrow -Aricept discontinued at patient's request on 02/27/2019. The medication has not been demonstrated to be efficacious for cognitive impairment associated with long-standing schizophrenia however we should be vigilant for slowing of mentation following discontinuation. 03/01 Patient fixated and irrational regarding access to clothing item as above today. Hospital environment becoming incorporated and delusions. Consider possibility that the aripiprazole is contributing to activation. We will increase to 20 mg tomorrow and also start Risperdal 1 mg p.o. twice daily as as needed. 03/02 - Continue with aripiprazole at 20mg daily, consider need for further titration - if tolerating and effective, eventual plan will be for conversion to Abilify Maintena - Pt has not yet utilized risperidone 03/03 - Increase aripiprazole to 25mg (equivalent to 30mg pill) and change to liquid formulation to decrease risk of cheeking/nonadherence, as patient does not believe he needs medication and had been noncompliant prior to hospitalization. - Fasting glucose and lipid profile ordered for tomorrow for monitoring on an atypical antipsychotic. - Private room due to psychosis, agitation, and inappropriate disrobing/sexual behavior. - Meeting with [facility] and [facility] staff when patient able to tolerate. 03/04 - Continue aripiprazole 25mg liquid (30mg pill equivalent) and continue to observe for improvement in thought process/content - consider conversion to Maintena if effective, versus trial of another agent if improvement remains limited - Fasting labs reviewed - all values WNL - Continue medically necessary private room - Request meeting with [facility] staff, in order to obtain details about patient's proximity to baseline 03/05 -Patient refusing liquid aripiprazole, but agrees to take the pill: Ordered 30 mg daily. -Schedule meeting with his lead case manager, [facility] and psych rehab staff. Consider involuntary outpatient commitment at the time of discharge. 03/06 -The patient has improved in that he is more reality based at this point. He continues to harbor fixed, systematized delusions, but is generally able to focus on reality based topics. -Although the patient tells me that he does not feel that aripiprazole has been effective, he is able to accept my opinion in the opinion of the staff that he has improved in response to aripiprazole. -The patient's main objection to aripiprazole oral solution is that he does not like the way it tastes, and within this context, he tells us that he is willing to accept Abilify Maintenaand requests that it be injected into his but tock. Abilify Maintena 300 mg IM ordered, and oral Abilify discontinued. We will resume oral Abilify if the patient subsequently changes his mind and refuses the injection. 03/07 resuming abilfiy oral given his refusal of FARAH form of abilify 03/08 is taking abilify po form but refusing abilify maintena form. advise close monitoring for potential of checking given pt's tendency to not want to take medications. 03/09 -The patient is flatly refusing to take aripiprazole in the form of Abilify Maintena. He is also been hesitant to take oral Abilify, but has been doing so. -The patient's lack of cooperation is thought possibly to be related to an un-expressed desire to not be discharged back to the community. He told me today that he left his meeting with his community providers after a few seconds because "just the side of them made me extremely anxious. My pulse elevated to 140." Later, he told me that he was still anxious about it and his pulse was "still around 130." The patient allowed me to take his pulse, and it was approximately 76. At that point he said, "did I say pulse? I meant systolic blood pressure." And when I pointed out that his systolic blood pressure of 130 is not considered to be a particular concern, he said "I mean diastolic." -Our hope had been that the patient would agree to accept a Depo form of medication. He was refusing Haldol Decanoate because of various side effects. Risperidone constant was ruled out as a first-line Depo medication because of the frequency of administration (the patient tends to get into power struggles over medications) and because he says that he is sensitive to "big needles." Invega would be an option, but currently the patient is being so uncooperative that our concern would be that he would cheek the oral tablets that we would have to give him first. Accordingly, the new strategy will be to discontinue Abilify, and resume olanzapine with olanzapine IM over objection if necessary. We will begin the olanzapine Zydis 20 mg at bedtime 03/10 -The patient took the prescribed dose of olanzapine Zydis 20 mg at bedtime last night. Today, he tells me that it "did not help at all." However, staff report that he has been somewhat more agreeable, more pleasant, and less paranoid today. -As he has with other providers, today he told me that I should have given him olanzapine 5 mg "to start", and I explained that he was already on olanzapine 20 mg when he came into the hospital and we know that he is able to tolerate that dose. He tells me that he did, in fact tolerate the dose and is not aware of any side effects, but, somewhat illogically, insisted that the dose was "too high for a starting dose." 03/11 - Continue current medication regimen at this time - olanzapine 20mg daily - Encourage participation in the milieu and in group programming as tolerated 03/12 -Continue current medication regimen. The patient's condition has not yet improved. -The patient does participate in select groups, but often tends to be disruptive. 03/13 -Today, the patient seems to be somewhat more cooperative and less frankly delusional. It was possible to engage in a mostly reality based conversation for 5 or 10 minutes at a time. Also, although he was unhappy with me when I refused to provide him with a dose of Valium for anxiety, he was able to remain pleasant and calm at this time, did not storm from the room." 03/14 and 03/15 -no change in medication will work on therapeutic alliance given patient is not participating 03/16 -304 involuntary commitment granted. -Patient remains completely uncooperative with treatment, refused his Zyprexa Zydis last evening, but then ultimately took it before he received the injection. I have a high suspicion for cheeking of antipsychotic medication, and we will continue to be vigilant with mouth checks, and work towards a long- acting injectable. 03/17 -Patient has been on Zyprexa 20 mg at bedtime for 1 week, with limited response. He is refusing to discuss other medication options. Per records, he has been prescribed up to 30 mg olanzapine in the past, so will increase his dose to this previously tolerated dose, as it is 1 of the few medications he has been willing to take. Continue IM backup for refusal, and Zyprexa Zydis formulation to decrease risk of cheeking. He is not compliant with mouth checks, but have asked staff to try to observe him for 10 minutes after taking the Zydis to ensure he is not spitting it out before it dissolves. 03/18 -Continue Zyprexa Zydis 30 mg at bedtime with IM backup. Consider switch to a different medication (?oral paliperidone with IM backup) if irritability and agitation continues. He has tried virtually every atypical antipsychotic and reports none of them were effective (although some trials were short due to nonadherence) and has a history of dystonia on haloperidol. Clozapine would be a reasonable choice, but he has been unwilling to even discuss medication options. -Consider some component of cognitive decline which could be contributing to his worsening presentation and will need to be monitored and worked up further once he is more psychiatrically stable. -Refer to [facility] in the event that he does not improve and long-term inpatient treatment is needed. 03/19 - Proceed with [facility] referral. 03/20 - Continue current medication regimen; patient refused EKG and CXR yesterday - refused again today - Continue attempts to gather information to make a referral to [facility] 03/23 - Proceed with [facility] referral - patient has refused EKG and CXR for multiple attempts. We will send most recent tests available - Continue current medication regimen at this time 03/24 -Attempted to hold diversion meeting with his outpatient [facility], jail director, and the [facility]; patient refused to attend or participate in the meeting. 03/25 - 03/26 - Continue treatment plan as above - no change in patient's condition and he remains unwilling to participate meaningfully in treatment - Continue with [facility] referral 03/27 -The patient has been informed that the plan at this point is to transfer him to [facility] for long-term inpatient psychiatric treatment, given his refusal to adhere with treatment and his associated behaviors in the community when not adherent with psychiatric treatment. -The patient continues to refuse mouth checks after given dosages of Zyprexa Zydis, and there is some question regarding whether he is actually ingesting this medication. He also would not cooperate with laboratory testing. -There has been a question regarding the patient's cognitive functions, and prior to admission he had been taking Aricept. When he does cooperate with this, I have not seen evidence of any substantial cognitive impairment. He may have mild cognitive impairment, but does not fully cooperate with formal cognitive assessment. He easily recalls the names of his providers, the names of the medications he is taking, the names of the various infectious agents that he believes are causing some of his psychiatric symptoms, the names of certain chemicals that he believes will rid him of the reference to infections, and is able to discuss current events such as recent news items. His assertion that he wants to return to his apartment in the community seems belied by his steadfast refusal to cooperate with those interventions I would make it possible for him to return, and there is some suspicion that although the patient remains floridly psychotic he may also be intentionally sabotaging discharge. 03/28 - 03/30 -There is been no ion exchange operator the past 2 weeks, and long-term inpatient treatment at the [facility] is indicated. 03/31 - Continue current medication regimen - Pt briefly verbalized willingness for FARAH, but was not agreeable to medication adjustments to allow for this to be possible - If he should change his mind; recommendation is for trial of Invega orally to establish tolerability, then consideration for Invega Sustenna - unwilling for this today 04/01 - 04/03 - Continue current medication regimen - Continues to refuse FARAH, will continue discussion daily as this is the reported preference of his CR[facility] 04/04 -Questionable positive PPD measuring 13 mm but history of confinement places him at higher risk. Patient refused chest x-ray today but we will reapproach. No active symptoms of infection. Order for sputum culture and smear today for confirmation. 04/05 -PPD now appears negative. Would suggest follow through with sputum smear and culture for confirmation as previously ordered -Continue treatment plan as above 04/06 - PPD reportedly negative, patient unable to follow-up with sputum smear - therefore discontinued - Continue medication regimen as above - unwilling to discuss conversion to an FARAH - Meeting today with representation from [facility] to discuss discharge planning 04/07 - Continue medication regimen as above - remains unwilling to discuss changes - Additional meeting with [facility] and CM scheduled for next week - We have been regularly assessing patient's condition and appropriateness to go outside since his 30-day treatment plan review. As patient continues to be unwilling to participate in a meaningful conversation with providers regarding his condition, we continue to be unable to determine if he is appropriate to be taken off the unit - therefore will await ability to discuss the topic in a meaningful way prior to making this determination. Will continue regular evaluation. 04/08 - 04/12 - Continue current medication regimen, as patient unwilling to discuss changes - Attempted again to determine if appropriate to go outside, patient unwilling to participate in conversation despite being told the goal of allowing him to go outside - Meeting with CM and [facility] director scheduled for 04/13 at 1030 (2) Substance abuse: 02/25 - Pt has reported history of substance abuse, and recommendation has consistently been for avoidance of substances with significant abuse potential. - PDMP queried - most recent prescriptions below - lorazepam 0.5mg #60 tabs for 30 day supply - Dr. Alves - filled 02/12/2019 - alprazolam 0.5mg #90 tabs for 30 day supply - Dr. Lopez - filled 01/16/2019 - temazepam 30mg #30 caps for 30 day supply - Dr. Lopez - filled 01/16/2019 - Will continue lorazepam 0.5mg BID prn on admission, as only medication that is seemingly active - toxicology screen is negative for benzodiazepines, which questions if he has been taking the medication appropriately - Ideally will taper and discontinue the lorazepam, as recommendation remains that substances with abuse potential be avoided 02/26 -The patient's outpatient providers, during a meeting this morning, report that the patient tends to successfully convince physicians to prescribe benzodiazepines for him and that, in the past, he has abused him to the degree that he is practically obtunded. 02/27 -A repeat check of the PDMP reveals that the patient is consistently being prescribed lorazepam 0.5 mg twice daily (number 60/month) by a Dr. Brent Alves. He is also being prescribed alprazolam 0.[address] mg [address] Jeff Lopez, with the most recent previous prescription of alprazolam being on 01/16/[address] Lopez also prescribed temazepam 30 mg ca psules #30 on 01/16/2019. According to his residential providers, no temazepam capsules were found among the patient's belongings. His most recent prescription for lorazepam 0.5 mg tablets was filled on 02/12/2019. 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 In the past, he reportedly has used clonazepam and temazepam. -I advised the patient that because of his history of misuse of benzodiazepines we would not be prescribing benzodiazepines during his hospital stay. An as needed order for lorazepam has not been used during hospital stay, and I discontinued the order today. 03/02 - Will need to coordinate care with his PCP and outpatient psychiatrist prior to discharge regarding the above. 03/04 - Charge nurse spoke with the above offices regarding concern for continued benzodiazepine prescriptions - Records will be faxed to their offices on discharge, as all benzodiazepines were discontinued during this hospitalization 03/06 -The patient did not request benzodiazepines and did not complain of anxiety today. I suggested to him that perhaps Abilify is also helping with anxiety in his case, and he responded by saying "perhaps." 03/09 -Today, the patient is insisting that what he needs is "benzodiazepines," and explains that the reason he "needs" benzodiazepines is that he has "benzodiazepine receptors," and that he is the only medications that work. He is unable to process warnings about the risks of benzodiazepines in the elderly, including increased risk of falls and mortality. Clearly, the patient is seeking benzodiazepines and has no insight into the associated risks. He also insists that he has never had trouble with benzodiazepines in the past, although there is well-documented of this. 03/10 -Today, the patient repeated his insistence that he needs benzodiazepines and that benzodiazepines are the only medications that work because he has " benzodiazepine receptors." After being told that everyone has central nervous system receptors to which benzodiazepines may attach, he replied, "That may be, but some of people need to have benzodiazepines forearm benzodiazepine receptors. 03/12 -Continues to request Benzodiazepines. 03/13 -Requests Valium for his "benzodiazepines receptors." 03/27 -Refuses to cooperate with assessment today, but has recently told staff that he needs "either Valium or Ativan." -The patient apparently has no working insight into his history of abuse of prescription medications (benzodiazepines). (3) Hypertension: 02/25 - Continue home dose of clonidine 0.1mg qHS 03/01 Watch mildly elevated blood pressures as patient has been refusing clonidine 03/03 - BP normal past two days, and low today 03/10 -The patient's blood pressure today was 136/73. His pulse was 71 03/14 - elevated BP it is not urgent but will need monitored. 03/15 - BP WNL 03/26 - BP continues to be WNL 04/02 - BP remains within normal limits; continue daily vitals per standard admission order set - Will consider acute phase of this problem resolved at this time Inventory Assets Strengths: -Intelligence. Support of community providers. Well educated. Needs: Resume symptom-stabilizing medication regimen, coordinate care with jail Risk Factors Assessment Male: Yes : Yes Do You Have Access To A Gun?: No Health Problems: Yes Mental Health Diagnoses: Yes Substance Use Disorders: Yes Protective Factors Assessment Anglican Beliefs: No : No Responsible for Young Children: No Employed: No Stable Relationships: No Supportive Family: No Good Rapport with Provider: No Interval History Identifying Information SCOTT ROBERTO is a 74-year-old M who currently lives at a [facility] in [place]. Pt has a history of schizophrenia and is known to our unit from several previous admissions, most recently in 09/2016. Pt and was admitted on 02/24/19 16:40 on a 302 involuntary commitment for exacerbation of schizophrenia and heightened paranoia resulting in belief he needed to hide in a dumpster to seek refuge from impending bombings. Pt was found by [facility] staff and brought to the ED by police. He is on a 304 involuntary commitment as of 03/16/19; pt was accepted at [facility] on 04/02/19, awaiting bed date. Chief Complaint "Hi...." Review of Systems Notes Pt unwilling to participate in conversation, therefore could not obtain ROS. Pt did not verbalize any complaints. Sleep Information Total Hours of Sleep: 8 Sleep Comments: pton q-15 minute checks Meal Information Percent Meal Consumed - Breakfast: 100 Percent Meal Consumed - Lunch: 100 Percent Meal Consumed - Dinner: 100 Nutrition Comment: per meal record Subjective Subjective Patient was seen & assessed and interval progress reviewed with nursing and social work. Staff report the patient attended and participated appropriately in self-awareness group, were the milieu was playing a [employer] game. Pt attended community meeting in the evening, but pled the 5th and would not rate his mood. Pt has a meeting tomorrow morning to discuss if he will be considered for return back to the [facility] at discharge - referral for [facility] remains in place. Pt was seen today to assess progress since admission. Pt greets this provider by saying "hi" and then quickly returns to reading the newspaper on his bed. He does not acknowledge this provider's questions. Pt continued to read the newspaper. He did not verbalize any complaints today. Physical Exam Psychiatric Orientation: alert; + uncooperative Apperance: appropriately dressed, appropriately groomed and appeared stated age Eye Contact: + poor eye contact (avoiding eye contact, staring at newspaper) Motor Behavior: no abnormal motor movements (observed while sitting upright on edge of bed) Speech: normal rate/rhythm/volume of speech (only verbal response was "hi") Affect: + flat affect Cognition: attention grossly intact and language grossly intact Estimated Intelligence: consistent with education level Insight: + severely impaired insight Judgement: + severely impaired judgement Vital Signs (Past 24 Hours) Last Vital Signs Temp 36.4 C L 04/12/19 06:52 Pulse 79 04/12/19 06:53 Resp 18 04/12/19 06:52 BP 127/73 04/12/19 06:53 Pulse Ox 96 02/24/19 08:10 Results & Data Current Inpatient Medications Current Inpatient Medications: Current Inpatient Medications Acetaminophen (Tylenol) 650 mg PO Q4H PRN PRN Reason: Headache or Minor Fever Stop: 04/24/19 08:39 Al Hydrox/Mg Hydrox/Simethicone (Maalox) 30 ml PO Q4H PRN PRN Reason: GI Upset Stop: 04/24/19 08:39 Benztropine Mesylate (Cogentin) 0.5 mg PO BID PRN PRN Reason: dystonia Stop: 04/24/19 08:39 Bismuth Subsalicylate (Kaopectate) 15 ml PO PRN PRN PRN Reason: Loose Stool Stop: 04/24/19 08:39 Clonidine HCl (Catapres) 0.1 mg PO HS MAG Stop: 04/24/19 21:59 Last Admin: 04/11/19 20:34 Dose: 0.1 mg Documented by: Cyanocobalamin (Vitamin B-12) 500 mcg PO DAILY MAG Stop: 04/24/19 08:59 Last Admin: 04/11/19 08:49 Dose: 500 mcg Documented by: Hydroxyzine HCl (Vistaril) 50 mg PO HSZ PRN PRN Reason: Insomnia Stop: 04/24/19 08:44 Hydroxyzine HCl (Vistaril) 25 mg PO Q4H PRN PRN Reason: Anxiety Stop: 04/24/19 08:44 Magnesium Citrate (Citrate) 148 ml PO BID PRN PRN Reason: constipation Stop: 04/22/19 20:59 Last Admin: 03/23/19 17:19 Dose: 148 ml Documented by: Magnesium Hydroxide (Milk Of Magnesia) 30 ml PO DAILY PRN PRN Reason: Heartburn Stop: 04/24/19 08:44 Magnesium Oxide (Mag-Ox) 400 mg PO DAILY MAG Stop: 04/24/19 08:59 Last Admin: 04/11/19 08:49 Dose: 400 mg Documented by: Miscellaneous (Remove Nicoderm Patch) 1 ea N/A HS [facility] Stop: 04/24/19 21:59 Last Admin: 04/11/19 20:34 Dose: Not Given Documented by: Multivitamins (Multivitamin Tab) 1 tab PO DAILY MAG Stop: 04/24/19 08:59 Last Admin: 04/11/19 08:49 Dose: 1 tab Documented by: Nicotine (Nicoderm Cq) 14 mg TD QAM MAG Stop: 04/24/19 08:59 Last Admin: 04/11/19 10:22 Dose: 14 mg Documented by: Olanzapine (Zyprexa) 10 mg IM HS PRN PRN Reason: Undecided Stop: 04/24/19 08:44 Olanzapine (Zyprexa Zydis Od) 30 mg PO HS MAG Stop: 04/24/19 21:59 Last Admin: 04/11/19 20:34 Dose: 30 mg Documented by: Pyridoxine HCl (Vitamin B-6) 100 mg PO DAILY MAG Stop: 04/24/19 08:59 Last Admin: 04/11/19 08:49 Dose: 100 mg Documented by: Risperidone (Risperdal M) 1 mg PO BID PRN PRN Reason: psychosis Stop: 04/24/19 08:44 Sodium Chloride ([place] Nasal) 1 - 2 sprays NA PRN PRN PRN Reason: Nasal Dryness/Congestion Stop: 04/24/19 08:44 Mental Health & Subst Abuse Tx Therapist Name of Therapist: Sammy Push Connector Assembler Name of Push Connector Assembler: Shruti Lopez Phone Number for Push Connector Assembler: Case Management Appointment Comment: [phone], [place] [address] Post Discharge Appointments Primary Care Physician Name Of Family Doctor: Dr. Lopez Contact Information Discharge Discharge Address: [address] [place] [id number] CPT Code CPT Code 86435 (1) Schizophrenia Schizophrenia type: paranoid schizophrenia Qualified Code(s): F20.0 - Paranoid schizophrenia (2) Hypertension Hypertension type: essential hypertension Qualified Code(s): I10 - Essential (primary) hypertension
[2019-04-12] MEDS: MAGNESIUM OXIDE 400 MG TAB PO SCH (09:06)
[2019-04-12] MEDS: NICOTINE 14 MG/24 HR PATCH TD SCH (09:07)
[2019-04-12] MEDS: MULTIVITAMIN TAB PO SCH (09:07)
[2019-04-12] MEDS: CYANOCOBALAMIN 500 MCG TABLET (VITAMIN B-12) PO SCH (09:07)
[2019-04-12] MEDS: PYRIDOXINE HCL 50 MG TAB PO SCH (09:07)
[2019-04-12] MEDS: cloNIDine HCL 0.1 MG TAB PO SCH (20:37)
[2019-04-12] MEDS: OLANZAPINE ZYDIS 10 MG ORALLY DIS. TAB PO SCH (20:37)
[2019-04-13] MEDS: MAGNESIUM OXIDE 400 MG TAB PO SCH (07:50)
[2019-04-13] MEDS: CYANOCOBALAMIN 500 MCG TABLET (VITAMIN B-12) PO SCH (07:51)
[2019-04-13] MEDS: PYRIDOXINE HCL 50 MG TAB PO SCH (07:51)
[2019-04-13] MEDS: NICOTINE 14 MG/24 HR PATCH TD SCH (07:51)
[2019-04-13] MEDS: MULTIVITAMIN TAB PO SCH (07:51)
--- NOTE | 2019-04-13 09:16 | Psychiatric Progress Note ---
Date of Service April 13, 2019 Impression / Recommendations Impression 74-year-old male with schizophrenia who lives at the [facility] and was admitted involuntarily on 02/24/2019 with delusions, hallucinations, irritability and erratic behavior after rapid decompensation 1-2 weeks after he stopped taking his antipsychotic. He was found in a dumpster, floridly delusional, and was combative with R staff. He refused resumption of olanzapine, but ultimately agreed to take aripiprazole. It initially appeared that he was responding favorably, although not completely, to the addition of aripiprazole. Because of the patient's long history of dangerous behaviors in the community associated with nonadherence with psychiatric medications, the a depo antipsychotic medication was recommended, and he initially agreed to Abimichelle Damona; however, refused it when staff attempted to administer the injection (03/13/2019), and subsequently became much more oppositional and hostile towards staff, refusing to speak with a psychiatrist or other [facility] staff since that time. He returned to [facility] Feliciano, which he reports he is compliant with despite often refusing mouth checks. He refused to participate in a diversion meeting with his usp director and outpatient correctional case records supervisor on 03/24/19, but attended and participated in subsequent meetings. Final scheduled attempted diversion meeting was held on 04/13/19, with reports patient's R bed will no longer be available. He has returned to being unwilling to participate in evaluations by clinicians. He has a clear history of dangerous behaviors during periods of nonadherence with medications in the community, and inpatient psychiatric hospitalization remains the least intensive, least restrictive level of care consistent with the patient's clinical and safety needs. He was referred to [facility] 03/23/2019; accepted on 04/02/19 and bed date is pending. (1) Schizophrenia: 02/25 - Continue home medication regimen - as refusing offerings of his antipsychot ic, will likely require olanzapine IM (or alternative agent) over objection, given clear evidence of paranoia and delusional thought process - previously stabilized on this medication - Pt agreeable to taking all other medications, with exception of antipsychotic as mentioned above - Admitted to a locked inpatient behavioral health unit, on q15 minute safety checks - Encourage medication initiation/adjustments as indicated - Encourage participation in group and recreational therapies - Gather collateral information from outpatient providers and usp staff - Suggest family meeting to involve outpatient supports in safety planning - Reschedule appropriate aftercare appointments 02/26 -Patient indicates willingness to sign a release for the [facility] usp, will get collateral from their staff. -File for 303 involuntary commitment to be held tomorrow. -Recommend medications over objection, with an IM Zyprexa backup for refusal of oral medication. Involve outpatient treatment team to discuss ways to improve stability and compliance; consider long-acting injectable antipsychotic. -Order fasting labs for monitoring on an atypical antipsychotic once patient is more cooperative. 02/27 -The patient was retrained at his involuntary commitment hearing (303) this morning. -He has continuously and consistently refused psychiatric medications to date. However, today, when I explained that that a option that might become necessary in his case is medication over objection, and an intramuscular form, the patient said that he understood and that he would try medications that I prescribe. His initial preference would be olanzapine, but because olanzapine is not available in a long acting depot form, we would first like to try aripiprazole. He indicates that he is taken aripiprazole in the past and has been able to tolerate it, although he does not believe that it has been particularly helpful. -A trial dose of aripiprazole 15 mg by mouth, as a one-time dose, has been ordered and he assessed for efficacy. 02/28 -Appears to be tolerating initiation of Abilify so far. Remains delusional, paranoid. May consider further titration tomorrow -Aricept discontinued at patient's request on 02/27/2019. The medication has not been demonstrated to be efficacious for cognitive impairment associated with long-standing schizophrenia however we should be vigilant for slowing of mentation following discontinuation. 03/01 Patient fixated and irrational regarding access to clothing item as above today. Hospital environment becoming incorporated and delusions. Consider possibility that the aripiprazole is contributing to activation. We will increase to 20 mg tomorrow and also start Risperdal 1 mg p.o. twice daily as as needed. 03/02 - Continue with aripiprazole at 20mg daily, consider need for further titration - if tolerating and effective, eventual plan will be for conversion to Abilify Maintena - Pt has not yet utilized risperidone 03/03 - Increase aripiprazole to 25mg (equivalent to 30mg pill) and change to liquid formulation to decrease risk of cheeking/nonadherence, as patient does not believe he needs medication and had been noncompliant prior to hospitalization. - Fasting glucose and lipid profile ordered for tomorrow for monitoring on an atypical antipsychotic. - Private room due to psychosis, agitation, and inappropriate disrobing/sex ual behavior. - Meeting with BCM and [facility] staff when patient able to tolerate. 03/04 - Continue aripiprazole 25mg liquid (30mg pill equivalent) and continue to observe for improvement in thought process/content - consider conversion to Maintena if effective, versus trial of another agent if improvement remains limited - Fasting labs reviewed - all values WNL - Continue medically necessary private room - Request meeting with CRR staff, in order to obtain details about patient's proximity to baseline 03/05 -Patient refusing liquid aripiprazole, but agrees to take the pill: Ordered 30 mg daily. -Schedule meeting with his correctional case records supervisor, CRR and psych rehab staff. Consider involuntary outpatient commitment at the time of discharge. 03/06 -The patient has improved in that he is more reality based at this point. He continues to harbor fixed, systematized delusions, but is generally able to focus on reality based topics. -Although the patient tells me that he does not feel that aripiprazole has been effective, he is able to accept my opinion in the opinion of the staff that he has improved in response to aripiprazole. -The patient's main objection to aripiprazole oral solution is that he does not like the way it tastes, and within this context, he tells us that he is willing to accept Abilify Maintenaand requests that it be injected into his buttock. Abilify Maintena 300 mg IM ordered, and oral Abilify discontinued. We will resume oral Abilify if the patient subsequently changes his mind and refuses the injection. 03/07 resuming abilfiy oral given his refusal of FARAH form of abilify 03/08 is taking abilify po form but refusing abilify maintena form. advise close monitoring for potential of checking given pt's tendency to not want to take medications. 03/09 -The patient is flatly refusing to take aripiprazole in the form of Abilify Maintena. He is also been hesitant to take oral Abilify, but has been doing so. -The patient's lack of cooperation is thought possibly to be related to an un-expressed desire to not be discharged back to the community. He told me today that he left his meeting with his community providers after a few seconds because "just the side of them made me extremely anxious. My pulse elevated to 140." Later, he told me that he was still anxious about it and his pulse was "still around 130." The patient allowed me to take his pulse, and it was approximately 76. At that point he said, "did I say pulse? I meant systolic blood pressure." And when I pointed out that his systolic blood pressure of 130 is not considered to be a particular concern, he said "I mean diastolic." -Our hope had been that the patient would agree to accept a Depo form of medication. He was refusing Haldol Decanoate because of various side effects. Risperidone constant was ruled out as a first-line Depo medication because of the frequency of administration (the patient tends to get into power struggles over medications) and because he says that he is sensitive to "big needles." Invega would be an option, but currently the patient is being so uncooperative that our concern would be that he would cheek the oral tablets that we would hav e to give him first. Accordingly, the new strategy will be to discontinue Abilify, and resume olanzapine with olanzapine IM over objection if necessary. We will begin the olanzapine Zydis 20 mg at bedtime 03/10 -The patient took the prescribed dose of olanzapine Zydis 20 mg at bedtime last night. Today, he tells me that it "did not help at all." However, staff report that he has been somewhat more agreeable, more pleasant, and less paranoid today. -As he has with other providers, today he told me that I should have given him olanzapine 5 mg "to start", and I explained that he was already on olanzapine 20 mg when he came into the hospital and we know that he is able to tolerate that dose. He tells me that he did, in fact tolerate the dose and is not aware of any side effects, but, somewhat illogically, insisted that the dose was "too high for a starting dose." 03/11 - Continue current medication regimen at this time - olanzapine 20mg daily - Encourage participation in the milieu and in group programming as tolerated 03/12 -Continue current medication regimen. The patient's condition has not yet improved. -The patient does participate in select groups, but often tends to be disruptive. 03/13 -Today, the patient seems to be somewhat more cooperative and less frankly delusional. It was possible to engage in a mostly reality based conversation for 5 or 10 minutes at a time. Also, although he was unhappy with me when I refused to provide him with a dose of Valium for anxiety, he was able to remain pleasant and calm at this time, did not storm from the room." 03/14 and 03/15 -no change in medication will work on therapeutic alliance given patient is not participating 03/16 -304 involuntary commitment granted. -Patient remains completely uncooperative with treatment, refused his Zyprexa Zydis last evening, but then ultimately took it before he received the injection. I have a high suspicion for cheeking of antipsychotic medication, and we will continue to be vigilant with mouth checks, and work towards a long- acting injectable. 03/17 -Patient has been on Zyprexa 20 mg at bedtime for 1 week, with limited response. He is refusing to discuss other medication options. Per records, he has been prescribed up to 30 mg olanzapine in the past, so will increase his dose to this previously tolerated dose, as it is 1 of the few medications he has been willing to take. Continue IM backup for refusal, and Zyprexa Zydis formulation to decrease risk of cheeking. He is not compliant with mouth checks, but have asked staff to try to observe him for 10 minutes after taking the Zydis to ensure he is not spitting it out before it dissolves. 03/18 -Continue Zyprexa Zydis 30 mg at bedtime with IM backup. Consider switch to a different medication (?oral paliperidone with IM backup) if irritability and agitation continues. He has tried virtually every atypical antipsychotic and reports none of them were effective (although some trials were short due to nonadherence) and has a history of dystonia on haloperidol. Clozapine would be a reasonable choice, but he has been unwilling to even discuss medication options. -Consider some component of cognitive decline which could be contributing to his worsening presentation and will need to be monitored and worked up further once he is more psychiatrically stable. -Refer to [facility] in the event that he does not improve and long-term inpatient treatment is needed. 03/19 - Proceed with [facility] referral. 03/20 - Continue current medication regimen; patient refused EKG and CXR yesterday - refused again today - Continue attempts to gather information to make a referral to [facility] 03/23 - Proceed with [facility] referral - patient has refused EKG and CXR for multiple attempts. We will send most recent tests available - Continue current medication regimen at this time 03/24 -Attempted to hold diversion meeting with his outpatient [facility], usp director, and the [facility] MH/ID; patient refused to attend or participate in the meeting. 03/25 - 03/26 - Continue treatment plan as above - no change in patient's condition and he remains unwilling to participate meaningfully in treatment - Continue with [facility] referral 03/27 -The patient has been informed that the plan at this point is to transfer him to [facility] for long-term inpatient psychiatric treatment, given his refusal to adhere with treatment and his associated behaviors in the community when not adherent with psychiatric treatment. -The patient continues to refuse mouth checks after given dosages of Zyprexa Zydis, and there is some question regarding whether he is actually ingesting this medication. He also would not cooperate with laboratory testing. -There has been a question regarding the patient's cognitive functions, and prior to admission he had been taking Aricept. When he does cooperate with this, I have not seen evidence of any substantial cognitive impairment. He may have mild cognitive impairment, but does not fully cooperate with formal cognitive assessment. He easily recalls the names of his providers, the names of the medications he is taking, the names of the various infectious agents that he believes are causing some of his psychiatric symptoms, the names of certain chemicals that he believes will rid him of the reference to infections, and is able to discuss current events such as recent news items. His assertion that he wants to return to his apartment in the community seems belied by his steadfast refusal to cooperate with those interventions I would make it possible for him to return, and there is some suspicion that although the patient remains floridly psychotic he may also be intentionally sabotaging discharge. 03/28 - 03/30 -There is been no change management expert the past 2 weeks, and long-term inpatient treatment at the [facility] is indicated. 03/31 - Continue current medication regimen - Pt briefly verbalized willingness for FARAH, but was not agreeable to medication adjustments to allow for this to be possible - If he should change his mind; recommendation is for trial of Invega orally to establish tolerability, then consideration for Invega Sustenna - unwilling for this today 04/01 - 04/03 - Continue current medication regimen - Continues to refuse FARAH, will continue discussion daily as this is the reported preference of his CRR 04/04 -Questionable positive PPD measuring 13 mm but history of confinement places him at higher risk. Patient refused chest x-ray today but we will reapproach. No active symptoms of infection. Order for sputum culture and smear today for confirmation. 04/05 -PPD now appears negative. Would suggest follow through with sputum smear and culture for confirmation as previously ordered -Continue treatment plan as above 04/06 - PPD reportedly negative, patient unable to follow-up with sputum smear - therefore discontinued - Continue medication regimen as above - unwilling to discuss conversion to an FARAH - Meeting today with representation from [facility] to discuss discharge planning 04/07 - Continue medication regimen as above - remains unwilling to discuss changes - Additional meeting with CRR and CM scheduled for next week - We have been regularly assessing patient's condition and appropriateness to go outside since his 30-day treatment plan review. As patient continues to be unwilling to participate in a meaningful conversation with providers regarding his condition, we continue to be unable to determine if he is appropriate to be taken off the unit - therefore will await ability to discuss the topic in a meaningful way prior to making this determination. Will continue regular evaluation. 04/08 - 04/12 - Continue current medication regimen, as patient unwilling to discuss changes - Attempted again to determine if appropriate to go outside, patient unwilling to participate in conversation despite being told the goal of allowing him to go outside - Meeting with CM and CRR director scheduled for 04/13 at 1030 04/13 - Continue Zyprexa 30mg daily - unwilling to engage in conversation to discuss changes - Remains unwilling to engage in conversation to determine if he is appropriate to go outside, he has been made aware this is a possibility for him - Meeting for attempted diversion resulted in decision to no longer hold patient's CR[facility] bed, [facility] admission is supported based on little to no improvement since admission and limited willingness to engage in conversations regarding medication adjustments - We have been asked to attempt to get a QuantiFERON-TB Gold Plus test, despite negative PPD reading within acceptable timeframe - pt unwilling to engage in conversation to obtain consent, further indicating why long-term inpatient psychiatric hospitalization is necessary. Will continue to attempt to gain consent for this testing to be completed (2) Substance abuse: 02/25 - Pt has reported history of substance abuse, and recommendation has consistently been for avoidance of substances with significant abuse potential. - PDMP queried - most recent prescriptions below - lorazepam 0.5mg #60 tabs for 30 day supply - Dr. Alves - filled 02/12/2019 - alprazolam 0.5mg #90 tabs for 30 day supply - Dr. Lopez - filled 01/16/2019 - temazepam 30mg #30 caps for 30 day supply - Dr. Lopez - filled 01/16/2019 - Will continue lorazepam 0.5mg BID prn on admission, as only medication that is seemingly active - toxicology screen is negative for benzodiazepines, which questions if he has been taking the medication appropriately - Ideally will taper and discontinue the lorazepam, as recommendation remains that substances with abuse potential be avoided 02/26 -The patient's outpatient providers, during a meeting this morning, report that the patient tends to successfully convince physicians to prescribe benzodiazepines for him and that, in the past, he has abused him to the degree that he is practically obtunded. 02/27 -A repeat check of the PDMP reveals that the patient is consistently being prescribed lorazepam 0.5 mg twice daily (number 60/month) by a Dr. Brent Alves. He is also being prescribed alprazolam 0.[address] mg [address] Jeff Lopez, with the most recent previous prescription of alprazolam being on 01/16/[address] Lopez also prescribed temazepam 30 mg capsules #30 on 01/16/2019. According to his residential providers, no temazepam capsules were found among the patient's belongings. His most recent prescription for lorazepam 0.5 mg tablets was filled on 02/12/2019. 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 In the past, he reportedly has used clonazepam and temazepam. -I advised the patient that because of his history of misuse of benzodiazepines we would not be prescribing benzodiazepines during his hospital stay. An as needed order for lorazepam has not been used during hospital stay, and I discontinued the order today. 03/02 - Will need to coordinate care with his PCP and outpatient psychiatrist prior to discharge regarding the above. 03/04 - Charge nurse spoke with the above offices regarding concern for continued benzodiazepine prescriptions - Records will be faxed to their offices on discharge, as all benzodiazepines were discontinued during this hospitalization 03/06 -The patient did not request benzodiazepines and did not complain of anxiety today. I suggested to him that perhaps Abilify is also helping with anxiety in his case, and he responded by saying "perhaps." 03/09 -Today, the patient is insisting that what he needs is "benzodiazepines," and explains that the reason he "needs" benzodiazepines is that he has "benzodiazepine receptors," and that he is the only medications that work. He is unable to process warnings about the risks of benzodiazepines in the elderly, including increased risk of falls and mortality. Clearly, the patient is seeking benzodiazepines and has no insight into the associated risks. He also insists that he has never had trouble with benzodiazepines in the past, although there is well-documented of this. 03/10 -Today, the patient repeated his insistence that he needs benzodiazepines and that benzodiazepines are the only medications that work because he has "benzodiazepine receptors." After being told that everyone has central nervous system receptors to which benzodiazepines may attach, he replied, "That may be, but some of people need to have benzodiazepines forearm benzodiazepine receptors. 03/12 -Continues to request Benzodiazepines. 03/13 -Requests Valium for his "benzodiazepines receptors." 03/27 -Refuses to cooperate with assessment today, but has recently told staff that he needs "either Valium or Ativan." -The patient apparently has no working insight into his history of abuse of prescription medications (benzodiazepines). (3) Hypertension: 02/25 - Continue home dose of clonidine 0.1mg qHS 03/01 Watch mildly elevated blood pressures as patient has been refusing clonidine 03/03 - BP normal past two days, and low today 03/10 -The patient's blood pressure today was 136/73. His pulse was 71 03/14 - elevated BP it is not urgent but will need monitored. 03/15 - BP WNL 03/26 - BP continues to be WNL 04/02 - BP remains within normal limits; continue daily vitals per standard admission order set - Will consider acute phase of this problem resolved at this time Inventory Assets Strengths: -Intelligence. Support of community providers. Well educated. Needs: Resume symptom-stabilizing medication regimen, coordinate care with usp Risk Factors Assessment Male: Yes : Yes Do You Have Access To A Gun?: No Health Problems: Yes Mental Health Diagnoses: Yes Substance Use Disorders: Yes Protective Factors Assessment Mosque Beliefs: No : No Responsible for Young Children: No Employed: No Stable Relationships: No Supportive Family: No Good Rapport with Provider: No Interval History Identifying Information SCOTT ROBERTO is a 74-year-old M who currently lives at a [facility] in [place]. Pt has a history of schizophrenia and is known to our unit from several previous admissions, most recently in 09/2016. Pt and was admitted on 02/24/19 16:40 on a 302 involuntary commitment for exacerbation of schizophrenia and heightened paranoia resulting in belief he needed to hide in a dumpster to seek refuge from impending bombings. Pt was found by [facility] staff and brought to the ED by police. He is on a 304 involuntary commitment as of 03/16/19; pt was accepted at [facility] on 04/02/19, awaiting bed date. Chief Complaint "Leave me alone." Review of Systems Notes Pt uncooperative with interview, unwilling to participate in review of systems Sleep Information Total Hours of Sleep: 8 Sleep Comments: pton q-15 minute checks Meal Information Percent Meal Consumed - Breakfast: 100 Percent Meal Consumed - Lunch: 100 Percent Meal Consumed - Dinner: 75 Nutrition Comment: per meal record Subjective Subjective Patient was seen & assessed and interval progress reviewed with treatment team. Staff report the patient is scheduled for a diversion meeting this morning. We were informed of desire from [place] for QuantiFERON-TB Gold Plus testing to confirm negative PPD reading. Pt was seen today to assess progress since admission and attempt to gain consent for this testing. Pt was observed to be walking the halls just prior to our encounter, and was ultimately found to be in his room walking. Pt was greeted by this provider, and stated "Leave me alone." This provider stated she would return, but that she would be planning to discuss requested testing. Pt interrupted this provider and stated "Leave me alone, I don't want to talk to you. Never come back." He began walking toward his door as if to close it, and this provider thanked him for his time and walked away. He did not verbalize needs or concerns today. Physical Exam Psychiatric Orientation: alert; + uncooperative (unwilling for conversation ) Apperance: appropriately dressed, appropriately groomed and appeared stated age Eye Contact: good eye contact (for the brief encounter) Motor Behavior: steady gait and station and no abnormal motor movements (observed to be walking the halls without issue, walking around room) Speech: normal rate/rhythm/volume of speech (irritable tone, only brief responses) Affect: + irritable affect Cognition: attention grossly intact and language grossly intact Estimated Intelligence: consistent with education level Insight: + severely impaired insight Judgement: + severely impaired judgement Vital Signs (Past 24 Hours) Last Vital Signs Temp 36.6 C 04/13/19 06:44 Pulse 75 04/13/19 06:45 Resp 16 04/13/19 06:44 BP 113/68 04/13/19 06:45 Pulse Ox 96 02/24/19 08:10 Results & Data Current Inpatient Medications Current Inpatient Medications: Current Inpatient Medications Acetaminophen (Tylenol) 650 mg PO Q4H PRN PRN Reason: Headache or Minor Fever Stop: 04/24/19 08:39 Al Hydrox/Mg Hydrox/Simethicone (Maalox) 30 ml PO Q4H PRN PRN Reason: GI Upset Stop: 04/24/19 08:39 Benztropine Mesylate (Cogentin) 0.5 mg PO BID PRN PRN Reason: dystonia Stop: 04/24/19 08:39 Bismuth Subsalicylate (Kaopectate) 15 ml PO PRN PRN PRN Reason: Loose Stool Stop: 04/24/19 08:39 Clonidine HCl (Catapres) 0.1 mg PO HS MAG Stop: 04/24/19 21:59 Last Admin: 04/12/19 20:37 Dose: 0.1 mg Documented by: Cyanocobalamin (Vitamin B-12) 500 mcg PO DAILY MAG Stop: 04/24/19 08:59 Last Admin: 04/13/19 07:51 Dose: 500 mcg Documented by: Hydroxyzine HCl (Vistaril) 50 mg PO HSZ PRN PRN Reason: Insomnia Stop: 04/24/19 08:44 Hydroxyzine HCl (Vistaril) 25 mg PO Q4H PRN PRN Reason: Anxiety Stop: 04/24/19 08:44 Magnesium Citrate (Citrate) 148 ml PO BID PRN PRN Reason: constipation Stop: 04/22/19 20:59 Last Admin: 03/23/19 17:19 Dose: 148 ml Documented by: Magnesium Hydroxide (Milk Of Magnesia) 30 ml PO DAILY PRN PRN Reason: Heartburn Stop: 04/24/19 08:44 Magnesium Oxide (Mag-Ox) 400 mg PO DAILY MAG Stop: 04/24/19 08:59 Last Admin: 04/13/19 07:50 Dose: 400 mg Documented by: Miscellaneous (Remove Nicoderm Patch) 1 ea N/A HS MAG Stop: 04/24/19 21:59 Last Admin: 04/12/19 20:38 Dose: Not Given Documented by: Multivitamins (Multivitamin Tab) 1 tab PO DAILY MAG Stop: 04/24/19 08:59 Last Admin: 04/13/19 07:51 Dose: 1 tab Documented by: Nicotine (Nicoderm Cq) 14 mg TD QAM MAG Stop: 04/24/19 08:59 Last Admin: 04/13/19 07:51 Dose: 14 mg Documented by: Olanzapine (Zyprexa) 10 mg IM HS PRN PRN Reason: Undecided Stop: 04/24/19 08:44 Olanzapine (Zyprexa Zydis Od) 30 mg PO HS MAG Stop: 04/24/19 21:59 Last Admin: 04/12/19 20:37 Dose: 30 mg Documented by: Pyridoxine HCl (Vitamin B-6) 100 mg PO DAILY MAG Stop: 04/24/19 08:59 Last Admin: 04/13/19 07:51 Dose: 100 mg Documented by: Risperidone (Risperdal M) 1 mg PO BID PRN PRN Reason: psychosis Stop: 04/24/19 08:44 Sodium Chloride ([place] Nasal) 1 - 2 sprays NA PRN PRN PRN Reason: Nasal Dryness/Congestion Stop: 04/24/19 08:44 Mental Health & Subst Abuse Tx Therapist Name of Therapist: Sammy [employer] Field Assistant Name of [employer] Field Assistant: Shruti Resendez Jessica Phone Number for [employer] Field Assistant: Case Management Appointment Comment: [address], [place] [address] Post Discharge Appointments Primary Care Physician Name Of Family Doctor: Dr. Lopez Contact Information Discharge Discharge Address: [address] [place] [address], [place] [address] CPT Code CPT Code 01416 (1) Schizophrenia Schizophrenia type: paranoid schizophrenia Qualified Code(s): F20.0 - Paranoid schizophrenia (2) Hypertension Hypertension type: essential hypertension Qualified Code(s): I10 - Essential (primary) hypertension
[2019-04-13] MEDS: cloNIDine HCL 0.1 MG TAB PO SCH (21:06)
[2019-04-13] MEDS: OLANZAPINE ZYDIS 10 MG ORALLY DIS. TAB PO SCH (21:06)
[2019-04-14] MEDS: CYANOCOBALAMIN 500 MCG TABLET (VITAMIN B-12) PO SCH (07:58)
[2019-04-14] MEDS: PYRIDOXINE HCL 50 MG TAB PO SCH (07:58)
[2019-04-14] MEDS: MULTIVITAMIN TAB PO SCH (07:58)
[2019-04-14] MEDS: MAGNESIUM OXIDE 400 MG TAB PO SCH (07:58)
[2019-04-14] MEDS: NICOTINE 14 MG/24 HR PATCH TD SCH (07:58)
--- NOTE | 2019-04-14 09:24 | Psychiatric Progress Note ---
Date of Service April 14, 2019 Impression / Recommendations Impression 74-year-old male with schizophrenia who lives at the [facility] and was admitted involuntarily on 02/24/2019 with delusions, hallucinations, irritability and erratic behavior after rapid decompensation 1-2 weeks after he stopped taking his antipsychotic. He was found in a dumpster, floridly delusional, and was combative with R staff. He refused resumption of olanzapine, but ultimately agreed to take aripiprazole. It initially appeared that he was responding favorably, although not completely, to the addition of aripiprazole. Because of the patient's long history of dangerous behaviors in the community associated with nonadherence with psychiatric medications, the a depo antipsychotic medication was recommended, and he initially agreed to Abimichelle Damona; however, refused it when staff attempted to administer the injection (03/13/2019), and subsequently became much more oppositional and hostile towards staff, refusing to speak with a psychiatrist or other [facility] staff since that time. He returned to Frankie Feliciano, which he reports he is compliant with despite often refusing mouth checks. He refused to participate in a diversion meeting with his detention director and outpatient bottle caser on 03/24/19, but attended and participated in subsequent meetings. Final scheduled attempted diversion meeting was held on 04/13/19, with reports patient's R bed will no longer be available. He has returned to being unwilling to participate in evaluations by clinicians. He has a clear history of dangerous behaviors during periods of nonadherence with medications in the community, and inpatient psychiatric hospitalization remains the least intensive, least restrictive level of care consistent with the patient's clinical and safety needs. He was referred to [facility] 03/23/2019; accepted on 04/02/19 and bed date is pending. (1) Schizophrenia: 02/25 - Continue home medication regimen - as refusing offerings of his antipsychot ic, will likely require olanzapine IM (or alternative agent) over objection, given clear evidence of paranoia and delusional thought process - previously stabilized on this medication - Pt agreeable to taking all other medications, with exception of antipsychotic as mentioned above - Admitted to a locked inpatient behavioral health unit, on q15 minute safety checks - Encourage medication initiation/adjustments as indicated - Encourage participation in group and recreational therapies - Gather collateral information from outpatient providers and detention staff - Suggest family meeting to involve outpatient supports in safety planning - Reschedule appropriate aftercare appointments 02/26 -Patient indicates willingness to sign a release for the [facility] detention, will get collateral from their staff. -File for 303 involuntary commitment to be held tomorrow. -Recommend medications over objection, with an IM Zyprexa backup for refusal of oral medication. Involve outpatient treatment team to discuss ways to improve stability and compliance; consider long-acting injectable antipsychotic. -Order fasting labs for monitoring on an atypical antipsychotic once patient is more cooperative. 02/27 -The patient was retrained at his involuntary commitment hearing (303) this morning. -He has continuously and consistently refused psychiatric medications to date. However, today, when I explained that that a option that might become necessary in his case is medication over objection, and an intramuscular form, the patient said that he understood and that he would try medications that I prescribe. His initial preference would be olanzapine, but because olanzapine is not available in a long acting depot form, we would first like to try aripiprazole. He indicates that he is taken aripiprazole in the past and has been able to tolerate it, although he does not believe that it has been particularly helpful. -A trial dose of aripiprazole 15 mg by mouth, as a one-time dose, has been ordered and he assessed for efficacy. 02/28 -Appears to be tolerating initiation of Abilify so far. Remains delusional, paranoid. May consider further titration tomorrow -Aricept discontinued at patient's request on 02/27/2019. The medication has not been demonstrated to be efficacious for cognitive impairment associated with long-standing schizophrenia however we should be vigilant for slowing of mentation following discontinuation. 03/01 Patient fixated and irrational regarding access to clothing item as above today. Hospital environment becoming incorporated and delusions. Consider possibility that the aripiprazole is contributing to activation. We will increase to 20 mg tomorrow and also start Risperdal 1 mg p.o. twice daily as as needed. 03/02 - Continue with aripiprazole at 20mg daily, consider need for further titration - if tolerating and effective, eventual plan will be for conversion to Abilify Maintena - Pt has not yet utilized risperidone 03/03 - Increase aripiprazole to 25mg (equivalent to 30mg pill) and change to liquid formulation to decrease risk of cheeking/nonadherence, as patient does not believe he needs medication and had been noncompliant prior to hospitalization. - Fasting glucose and lipid profile ordered for tomorrow for monitoring on an atypical antipsychotic. - Private room due to psychosis, agitation, and inappropriate disrobing/sex ual behavior. - Meeting with B[facility] and [facility] staff when patient able to tolerate. 03/04 - Continue aripiprazole 25mg liquid (30mg pill equivalent) and continue to observe for improvement in thought process/content - consider conversion to Maintena if effective, versus trial of another agent if improvement remains limited - Fasting labs reviewed - all values WNL - Continue medically necessary private room - Request meeting with [facility] staff, in order to obtain details about patient's proximity to baseline 03/05 -Patient refusing liquid aripiprazole, but agrees to take the pill: Ordered 30 mg daily. -Schedule meeting with his bottle caser, CRR and psych rehab staff. Consider involuntary outpatient commitment at the time of discharge. 03/06 -The patient has improved in that he is more reality based at this point. He continues to harbor fixed, systematized delusions, but is generally able to focus on reality based topics. -Although the patient tells me that he does not feel that aripiprazole has been effective, he is able to accept my opinion in the opinion of the staff that he has improved in response to aripiprazole. -The patient's main objection to aripiprazole oral solution is that he does not like the way it tastes, and within this context, he tells us that he is willing to accept Abilify Maintenaand requests that it be injected into his buttock. Abilify Maintena 300 mg IM ordered, and oral Abilify discontinued. We will resume oral Abilify if the patient subsequently changes his mind and refuses the injection. 03/07 resuming abilfiy oral given his refusal of FARAH form of abilify 03/08 is taking abilify po form but refusing abilify maintena form. advise close monitoring for potential of checking given pt's tendency to not want to take medications. 03/09 -The patient is flatly refusing to take aripiprazole in the form of Abilify Maintena. He is also been hesitant to take oral Abilify, but has been doing so. -The patient's lack of cooperation is thought possibly to be related to an un-expressed desire to not be discharged back to the community. He told me today that he left his meeting with his community providers after a few seconds because "just the side of them made me extremely anxious. My pulse elevated to 140." Later, he told me that he was still anxious about it and his pulse was "still around 130." The patient allowed me to take his pulse, and it was approximately 76. At that point he said, "did I say pulse? I meant systolic blood pressure." And when I pointed out that his systolic blood pressure of 130 is not considered to be a particular concern, he said "I mean diastolic." -Our hope had been that the patient would agree to accept a Depo form of medication. He was refusing Haldol Decanoate because of various side effects. Risperidone constant was ruled out as a first-line Depo medication because of the frequency of administration (the patient tends to get into power struggles over medications) and because he says that he is sensitive to "big needles." Invega would be an option, but currently the patient is being so uncooperative that our concern would be that he would cheek the oral tablets that we would hav e to give him first. Accordingly, the new strategy will be to discontinue Abilify, and resume olanzapine with olanzapine IM over objection if necessary. We will begin the olanzapine Zydis 20 mg at bedtime 03/10 -The patient took the prescribed dose of olanzapine Zydis 20 mg at bedtime last night. Today, he tells me that it "did not help at all." However, staff report that he has been somewhat more agreeable, more pleasant, and less paranoid today. -As he has with other providers, today he told me that I should have given him olanzapine 5 mg "to start", and I explained that he was already on olanzapine 20 mg when he came into the hospital and we know that he is able to tolerate that dose. He tells me that he did, in fact tolerate the dose and is not aware of any side effects, but, somewhat illogically, insisted that the dose was "too high for a starting dose." 03/11 - Continue current medication regimen at this time - olanzapine 20mg daily - Encourage participation in the milieu and in group programming as tolerated 03/12 -Continue current medication regimen. The patient's condition has not yet improved. -The patient does participate in select groups, but often tends to be disruptive. 03/13 -Today, the patient seems to be somewhat more cooperative and less frankly delusional. It was possible to engage in a mostly reality based conversation for 5 or 10 minutes at a time. Also, although he was unhappy with me when I refused to provide him with a dose of Valium for anxiety, he was able to remain pleasant and calm at this time, did not storm from the room." 03/14 and 03/15 -no change in medication will work on therapeutic alliance given patient is not participating 03/16 -304 involuntary commitment granted. -Patient remains completely uncooperative with treatment, refused his Zyprexa Zydis last evening, but then ultimately took it before he received the injection. I have a high suspicion for cheeking of antipsychotic medication, and we will continue to be vigilant with mouth checks, and work towards a long- acting injectable. 03/17 -Patient has been on Zyprexa 20 mg at bedtime for 1 week, with limited response. He is refusing to discuss other medication options. Per records, he has been prescribed up to 30 mg olanzapine in the past, so will increase his dose to this previously tolerated dose, as it is 1 of the few medications he has been willing to take. Continue IM backup for refusal, and Zyprexa Zydis formulation to decrease risk of cheeking. He is not compliant with mouth checks, but have asked staff to try to observe him for 10 minutes after taking the Zydis to ensure he is not spitting it out before it dissolves. 03/18 -Continue Zyprexa Zydis 30 mg at bedtime with IM backup. Consider switch to a different medication (?oral paliperidone with IM backup) if irritability and agitation continues. He has tried virtually every atypical antipsychotic and reports none of them were effective (although some trials were short due to nonadherence) and has a history of dystonia on haloperidol. Clozapine would be a reasonable choice, but he has been unwilling to even discuss medication options. -Consider some component of cognitive decline which could be contributing to his worsening presentation and will need to be monitored and worked up further once he is more psychiatrically stable. -Refer to [facility] in the event that he does not improve and long-term inpatient treatment is needed. 03/19 - Proceed with [facility] referral. 03/20 - Continue current medication regimen; patient refused EKG and CXR yesterday - refused again today - Continue attempts to gather information to make a referral to [facility] 03/23 - Proceed with [facility] referral - patient has refused EKG and CXR for multiple attempts. We will send most recent tests available - Continue current medication regimen at this time 03/24 -Attempted to hold diversion meeting with his outpatient [facility], detention director, and the [facility] MH/ID; patient refused to attend or participate in the meeting. 03/25 - 03/26 - Continue treatment plan as above - no change in patient's condition and he remains unwilling to participate meaningfully in treatment - Continue with [facility] referral 03/27 -The patient has been informed that the plan at this point is to transfer him to [facility] for long-term inpatient psychiatric treatment, given his refusal to adhere with treatment and his associated behaviors in the community when not adherent with psychiatric treatment. -The patient continues to refuse mouth checks after given dosages of Zyprexa Zydis, and there is some question regarding whether he is actually ingesting this medication. He also would not cooperate with laboratory testing. -There has been a question regarding the patient's cognitive functions, and prior to admission he had been taking Aricept. When he does cooperate with this, I have not seen evidence of any substantial cognitive impairment. He may have mild cognitive impairment, but does not fully cooperate with formal cognitive assessment. He easily recalls the names of his providers, the names of the medications he is taking, the names of the various infectious agents that he believes are causing some of his psychiatric symptoms, the names of certain chemicals that he believes will rid him of the reference to infections, and is able to discuss current events such as recent news items. His assertion that he wants to return to his apartment in the community seems belied by his steadfast refusal to cooperate with those interventions I would make it possible for him to return, and there is some suspicion that although the patient remains floridly psychotic he may also be intentionally sabotaging discharge. 03/28 - 03/30 -There is been no meter changes records clerk the past 2 weeks, and long-term inpatient treatment at the [facility] is indicated. 03/31 - Continue current medication regimen - Pt briefly verbalized willingness for FARAH, but was not agreeable to medication adjustments to allow for this to be possible - If he should change his mind; recommendation is for trial of Invega orally to establish tolerability, then consideration for Invega Sustenna - unwilling for this today 04/01 - 04/03 - Continue current medication regimen - Continues to refuse FARAH, will continue discussion daily as this is the reported preference of his CRR 04/04 -Questionable positive PPD measuring 13 mm but history of confinement places him at higher risk. Patient refused chest x-ray today but we will reapproach. No active symptoms of infection. Order for sputum culture and smear today for confirmation. 04/05 -PPD now appears negative. Would suggest follow through with sputum smear and culture for confirmation as previously ordered -Continue treatment plan as above 04/06 - PPD reportedly negative, patient unable to follow-up with sputum smear - therefore discontinued - Continue medication regimen as above - unwilling to discuss conversion to an FARAH - Meeting today with representation from [facility] to discuss discharge planning 04/07 - Continue medication regimen as above - remains unwilling to discuss changes - Additional meeting with CRR and CM scheduled for next week - We have been regularly assessing patient's condition and appropriateness to go outside since his 30-day treatment plan review. As patient continues to be unwilling to participate in a meaningful conversation with providers regarding his condition, we continue to be unable to determine if he is appropriate to be taken off the unit - therefore will await ability to discuss the topic in a meaningful way prior to making this determination. Will continue regular evaluation. 04/08 - 04/12 - Continue current medication regimen, as patient unwilling to discuss changes - Attempted again to determine if appropriate to go outside, patient unwilling to participate in conversation despite being told the goal of allowing him to go outside - Meeting with CM and CRR director scheduled for 04/13 at 1030 04/13 - Continue Zyprexa 30mg daily - unwilling to engage in conversation to discuss changes - Remains unwilling to engage in conversation to determine if he is appropriate to go outside, he has been made aware this is a possibility for him - Meeting for attempted diversion resulted in decision to no longer hold patient's CR[facility] bed, [facility] admission is supported based on little to no improvement since admission and limited willingness to engage in conversations regarding medication adjustments - We have been asked to attempt to get a QuantiFERON-TB Gold Plus test, despite negative PPD reading within acceptable timeframe - pt unwilling to engage in conversation to obtain consent, further indicating why long-term inpatient psychiatric hospitalization is necessary. Will continue to attempt to gain consent for this testing to be completed (2) Substance abuse: 02/25 - Pt has reported history of substance abuse, and recommendation has consistently been for avoidance of substances with significant abuse potential. - PDMP queried - most recent prescriptions below - lorazepam 0.5mg #60 tabs for 30 day supply - Dr. Alves - filled 02/12/2019 - alprazolam 0.5mg #90 tabs for 30 day supply - Dr. Lopez - filled 01/16/2019 - temazepam 30mg #30 caps for 30 day supply - Dr. Lopez - filled 01/16/2019 - Will continue lorazepam 0.5mg BID prn on admission, as only medication that is seemingly active - toxicology screen is negative for benzodiazepines, which questions if he has been taking the medication appropriately - Ideally will taper and discontinue the lorazepam, as recommendation remains that substances with abuse potential be avoided 02/26 -The patient's outpatient providers, during a meeting this morning, report that the patient tends to successfully convince physicians to prescribe benzodiazepines for him and that, in the past, he has abused him to the degree that he is practically obtunded. 02/27 -A repeat check of the PDMP reveals that the patient is consistently being prescribed lorazepam 0.5 mg twice daily (number 60/month) by a Dr. Brent Alves. He is also being prescribed alprazolam 0.[address] mg [address] Jeff Lopez, with the most recent previous prescription of alprazolam being on 01/16/[address] Lopez also prescribed temazepam 30 mg capsules #30 on 01/16/2019. According to his residential providers, no temazepam capsules were found among the patient's belongings. His most recent prescription for lorazepam 0.5 mg tablets was filled on 02/12/2019. 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 In the past, he reportedly has used clonazepam and temazepam. -I advised the patient that because of his history of misuse of benzodiazepines we would not be prescribing benzodiazepines during his hospital stay. An as needed order for lorazepam has not been used during hospital stay, and I discontinued the order today. 03/02 - Will need to coordinate care with his PCP and outpatient psychiatrist prior to discharge regarding the above. 03/04 - Charge nurse spoke with the above offices regarding concern for continued benzodiazepine prescriptions - Records will be faxed to their offices on discharge, as all benzodiazepines were discontinued during this hospitalization 03/06 -The patient did not request benzodiazepines and did not complain of anxiety today. I suggested to him that perhaps Abilify is also helping with anxiety in his case, and he responded by saying "perhaps." 03/09 -Today, the patient is insisting that what he needs is "benzodiazepines," and explains that the reason he "needs" benzodiazepines is that he has "benzodiazepine receptors," and that he is the only medications that work. He is unable to process warnings about the risks of benzodiazepines in the elderly, including increased risk of falls and mortality. Clearly, the patient is seeking benzodiazepines and has no insight into the associated risks. He also insists that he has never had trouble with benzodiazepines in the past, although there is well-documented of this. 03/10 -Today, the patient repeated his insistence that he needs benzodiazepines and that benzodiazepines are the only medications that work because he has "benzodiazepine receptors." After being told that everyone has central nervous system receptors to which benzodiazepines may attach, he replied, "That may be, but some of people need to have benzodiazepines forearm benzodiazepine receptors. 03/12 -Continues to request Benzodiazepines. 03/13 -Requests Valium for his "benzodiazepines receptors." 03/27 -Refuses to cooperate with assessment today, but has recently told staff that he needs "either Valium or Ativan." -The patient apparently has no working insight into his history of abuse of prescription medications (benzodiazepines). (3) Hypertension: 02/25 - Continue home dose of clonidine 0.1mg qHS 03/01 Watch mildly elevated blood pressures as patient has been refusing clonidine 03/03 - BP normal past two days, and low today 03/10 -The patient's blood pressure today was 136/73. His pulse was 71 03/14 - elevated BP it is not urgent but will need monitored. 03/15 - BP WNL 03/26 - BP continues to be WNL 04/02 - BP remains within normal limits; continue daily vitals per standard admission order set - Will consider acute phase of this problem resolved at this time Inventory Assets Strengths: -Intelligence. Support of community providers. Well educated. Needs: Resume symptom-stabilizing medication regimen, coordinate care with detention Risk Factors Assessment Male: Yes : Yes Do You Have Access To A Gun?: No Health Problems: Yes Mental Health Diagnoses: Yes Substance Use Disorders: Yes Protective Factors Assessment Hoahaoism Beliefs: No : No Responsible for Young Children: No Employed: No Stable Relationships: No Supportive Family: No Good Rapport with Provider: No Interval History Identifying Information SCOTT ROBERTO is a 74-year-old M who currently lives at a [facility] in [place]. Pt has a history of schizophrenia and is known to our unit from several previous admissions, most recently in 09/2016. Pt and was admitted on 02/24/19 16:40 on a 302 involuntary commitment for exacerbation of schizophrenia and heightened paranoia resulting in belief he needed to hide in a dumpster to seek refuge from impending bombings. Pt was found by [facility] staff and brought to the ED by police. He is on a 304 involuntary commitment as of 03/16/19; pt was accepted at [facility] on 04/02/19, awaiting bed date. Chief Complaint "[]". Review of Systems Sleep Information Total Hours of Sleep: 7.75 Sleep Comments: pton q-15 minute checks Meal Information Percent Meal Consumed - Breakfast: 100 Percent Meal Consumed - Lunch: 90 Percent Meal Consumed - Dinner: 100 Nutrition Comment: per meal record Subjective Subjective Patient was seen & assessed and interval progress reviewed with [treatment team] [nursing and social work] Physical Exam Vital Signs (Past 24 Hours) Last Vital Signs Temp 36.5 C 04/14/19 06:54 Pulse 97 H 04/14/19 06:55 Resp 16 04/14/19 06:54 BP 142/87 H 04/14/19 06:55 Pulse Ox 96 02/24/19 08:10 Results & Data Current Inpatient Medications Current Inpatient Medications: Current Inpatient Medications Acetaminophen (Tylenol) 650 mg PO Q4H PRN PRN Reason: Headache or Minor Fever Stop: 04/24/19 08:39 Al Hydrox/Mg Hydrox/Simethicone (Maalox) 30 ml PO Q4H PRN PRN Reason: GI Upset Stop: 04/24/19 08:39 Benztropine Mesylate (Cogentin) 0.5 mg PO BID PRN PRN Reason: dystonia Stop: 04/24/19 08:39 Bismuth Subsalicylate (Kaopectate) 15 ml PO PRN PRN PRN Reason: Loose Stool Stop: 04/24/19 08:39 Clonidine HCl (Catapres) 0.1 mg PO HS MAG Stop: 04/24/19 21:59 Last Admin: 04/13/19 21:06 Dose: 0.1 mg Documented by: Cyanocobalamin (Vitamin B-12) 500 mcg PO DAILY MAG Stop: 04/24/19 08:59 Last Admin: 04/14/19 07:58 Dose: 500 mcg Documented by: Hydroxyzine HCl (Vistaril) 50 mg PO HSZ PRN PRN Reason: Insomnia Stop: 04/24/19 08:44 Hydroxyzine HCl (Vistaril) 25 mg PO Q4H PRN PRN Reason: Anxiety Stop: 04/24/19 08:44 Magnesium Citrate (Citrate) 148 ml PO BID PRN PRN Reason: constipation Stop: 04/22/19 20:59 Last Admin: 03/23/19 17:19 Dose: 148 ml Documented by: Magnesium Hydroxide (Milk Of Magnesia) 30 ml PO DAILY PRN PRN Reason: Heartburn Stop: 04/24/19 08:44 Magnesium Oxide (Mag-Ox) 400 mg PO DAILY MAG Stop: 04/24/19 08:59 Last Admin: 04/14/19 07:58 Dose: 400 mg Documented by: Miscellaneous (Remove Nicoderm Patch) 1 ea N/A HS MAG Stop: 04/24/19 21:59 Last Admin: 04/13/19 21:08 Dose: Not Given Documented by: Multivitamins (Multivitamin Tab) 1 tab PO DAILY MAG Stop: 04/24/19 08:59 Last Admin: 04/14/19 07:58 Dose: 1 tab Documented by: Nicotine (Nicoderm Cq) 14 mg TD QAM MAG Stop: 04/24/19 08:59 Last Admin: 04/14/19 07:58 Dose: 14 mg Documented by: Olanzapine (Zyprexa) 10 mg IM HS PRN PRN Reason: Undecided Stop: 04/24/19 08:44 Olanzapine (Zyprexa Zydis Od) 30 mg PO HS MAG Stop: 04/24/19 21:59 Last Admin: 04/13/19 21:06 Dose: 30 mg Documented by: Pyridoxine HCl (Vitamin B-6) 100 mg PO DAILY MAG Stop: 04/24/19 08:59 Last Admin: 04/14/19 07:58 Dose: 100 mg Documented by: Risperidone (Risperdal M) 1 mg PO BID PRN PRN Reason: psychosis Stop: 04/24/19 08:44 Sodium Chloride ([place] Nasal) 1 - 2 sprays NA PRN PRN PRN Reason: Nasal Dryness/Congestion Stop: 04/24/19 08:44 Mental Health & Subst Abuse Tx Therapist Name of Therapist: Denies Java Xml Developer Name of Java Xml Developer: Shruti Lopez Phone Number for Java Xml Developer: Case Management Appointment Comment: [phone], [place] [address] Post Discharge Appointments Primary Care Physician Name Of Family Doctor: Dr. Lopez Contact Information Discharge Discharge [address]: [address] [place] [id number] CPT Code CPT Code 62378 [id number] (1) Schizophrenia Schizophrenia type: paranoid schizophrenia Qualified Code(s): F20.0 - Paranoid schizophrenia (2) Hypertension Hypertension type: essential hypertension Qualified Code(s): I10 - Essential (primary) hypertension
--- NOTE | 2019-04-14 13:01 | Psychiatric Progress Note ---
Date of Service April 14, 2019 Impression / Recommendations Impression The patient steadfastly refuses to speak with her prescribing physicians. He will not talk to the physician's financial assistant, and, in the past, has says that he will only speak with board certified physicians. However, I am a board certified psychiatrist, and for at least the past week the patient has not been willing to speak with me, either. Today, the patient appears to be particularly angry. The context is that he was informed yesterday that his community residential provider, Shruti Guadalupe, is now unwilling to continue to hold his bed, within the context of his unwillingness to cooperate with treatment here at the hospital, his long history of uncooperative and nonadherent behaviors in the residential program, and his ongoing active symptomatology which, unfortunately, does not seem to be improving. He has been referred for and has been accepted by the [facility] for long-term psychiatric inpatient treatment. Clearly, the patient is unable to attend to his own activities of daily living, and the dangerous behaviors that precipitated the current admission are likely to recur to the degree that he would represent a risk to himself of serious physical harm and possibly . We are considering giving the patient a drug holiday from Zyprexa collateral reports indicates that Zyprexa (olanzapine) has been helpful in stabilizing the patient's psychosis in the community in the past. However, we have not seen any substantial improvement. Instead, the patient now seems to be more angry, withdrawn, and resistance. He is being given olanzapine Zydis, and there remains some suspicio n that he may be avoiding swallowing after medication administration. Accordingly, we are considering a drug holiday. However, at the present time we are assuming that the patient is particularly distressed because he has learned that he will not be able to go back to his apartment in the community and this may not be the best time to try taking off his medications are reducing his dosage. He is given is no indication that he has any thoughts of harming himself and, instead, conversations with staff seem to indicate that he is focused on the feelings and shortcomings of other people. The patient at this point is spending much of his time alone in his room. He is being checked at least every 15 minutes by staff, and he comes out to eat his meals and periodically will speak with select staff Inventory Assets Strengths: Intelligence. Personable, when willing to cooperate. Interests include fashion and design. Needs: Adherence with medication regimens. Willingness to agree to long-term Depo medications because of his history of nonadherence in the community. Willingness to cooperate with treatment, including psychiatric assessments. Risk Factors Assessment Male: Yes : Yes Do You Have Access To A Gun?: No Health Problems: Yes Mental Health Diagnoses: Yes Substance Use Disorders: Yes Protective Factors Assessment Rastafari Beliefs: No : No Responsible for Young Children: No Employed: No Stable Relationships: No Supportive Family: No Good Rapport with Provider: No Absence of Any Risk Factors Above: No Interval History Chief Complaint "Get out. I do not want to talk." Review of Systems Sleep Information Total Hours of Sleep: 7.75 Sleep Comments: pton q-15 minute checks Meal Information Percent Meal Consumed - Breakfast: 100 Percent Meal Consumed - Lunch: 90 Percent Meal Consumed - Dinner: 100 Nutrition Comment: per meal record Subjective Subjective Patient was seen & assessed and interval progress reviewed with treatment team. I attempted to meet individually with the patient in order to assess his current mental status, evaluate his response to treatment, coordinate any necessary changes in the patient's treatment regimen with the patient, and address issues and concerns that may arise. However, as recently with various other providers, he has simply refused to speak with us. Today, I found the patient reclining, fully dressed, in bed. I approached him, and he immediately said, "I do not want to talk. Get out." I explained that it was important for me to talk with him in order to the me to determine what was going on with him and see what I could do to help. The patient then raised his voice and shouted "Get out!"I reiterated that this was not acceptable and that I would wait to see if he changed his mind. At that point, he closed his eyes, turned his head and after approximately 5 minutes of my periodically asking him to cooperate and waiting patiently for response, without any response other than for him to turn his head, open his eyes and look away, and then closes eyes again, I left the room. Yesterday, the patient received the news that his residential rehabilitation program was no longer willing to save his bed, given his refusal to cooperate with our recommendations and their expectations regarding long-term medications. As it was explained to the patient, he has been referred for transfer to a [facility] for long-term inpatient treatment, and although the patient has not given voice to his feelings in this regard, it seems quite clear that he is upset. However, he seems to have no insight at all into the degree to which he contributed to this circumstance. He periodically devalued to his residential program, and would periodically tell us that he "loved it" and then would later say "everyone there is incompetent." He would tell us that he wanted to return to his residential program, but when it was explained to him that he would need to at least meet with the staff from that program, he would refuse or would stay briefly and then leave the room. Physical Exam Psychiatric Orientation: + guarded Apperance: appropriately dressed, appropriately groomed and appeared stated age Eye Contact: + poor eye contact The patient turns his head away or closes his eyes when addressed. Motor Behavior: no abnormal motor movements Speech: + mute The patient only states, repeatedly "I do not want to talk" and "get out." Affect: + angry affect The patient refuses to respond to questions concerning his mood. The patient did not cooperate with the interview. The patient did not respond to any questions today. He has made statements to select nursing staff members that indicate that he continues to harbor delusions of persecution with completely no insight The patient does not respond to questions regarding suicidality. He has given us no indication that he is considering self-harm. The patient declines to respond to questions. We will observe the patient appearing to respond to internal stimuli. However, when asked, the patient does not respond to questions. We are unable to test the patient's cognitive abilities at this point because he refuses to speak or cooperate. Estimated Intelligence: + above average estimated intelligence Insight: + severely impaired insight Judgement: + severely impaired judgement Vital Signs (Past 24 Hours) Last Vital Signs Temp 36.5 C 04/14/19 06:54 Pulse 97 H 04/14/19 06:55 Resp 16 04/14/19 06:54 BP 142/87 H 04/14/19 06:55 Pulse Ox 96 02/24/19 08:10 Results & Data Current Inpatient Medications Current Inpatient Medications: Current Inpatient Medications Acetaminophen (Tylenol) 650 mg PO Q4H PRN PRN Reason: Headache or Minor Fever Stop: 04/24/19 08:39 Al Hydrox/Mg Hydrox/Simethicone (Maalox) 30 ml PO Q4H PRN PRN Reason: GI Upset Stop: 04/24/19 08:39 Benztropine Mesylate (Cogentin) 0.5 mg PO BID PRN PRN Reason: dystonia Stop: 04/24/19 08:39 Bismuth Subsalicylate (Kaopectate) 15 ml PO PRN PRN PRN Reason: Loose Stool Stop: 04/24/19 08:39 Clonidine HCl (Catapres) 0.1 mg PO HS MAG Stop: 04/24/19 21:59 Last Admin: 04/13/19 21:06 Dose: 0.1 mg Documented by: Cyanocobalamin (Vitamin B-12) 500 mcg PO DAILY MAG Stop: 04/24/19 08:59 Last Admin: 04/14/19 07:58 Dose: 500 mcg Documented by: Hydroxyzine HCl (Vistaril) 50 mg PO HSZ PRN PRN Reason: Insomnia Stop: 04/24/19 08:44 Hydroxyzine HCl (Vistaril) 25 mg PO Q4H PRN PRN Reason: Anxiety Stop: 04/24/19 08:44 Magnesium Citrate (Citrate) 148 ml PO BID PRN PRN Reason: constipation Stop: 04/22/19 20:59 Last Admin: 03/23/19 17:19 Dose: 148 ml Documented by: Magnesium Hydroxide (Milk Of Magnesia) 30 ml PO DAILY PRN PRN Reason: Heartburn Stop: 04/24/19 08:44 Magnesium Oxide (Mag-Ox) 400 mg PO DAILY MAG Stop: 04/24/19 08:59 Last Admin: 04/14/19 07:58 Dose: 400 mg Documented by: Miscellaneous (Remove Nicoderm Patch) 1 ea N/A HS MAG Stop: 04/24/19 21:59 Last Admin: 04/13/19 21:08 Dose: Not Given Documented by: Multivitamins (Multivitamin Tab) 1 tab PO DAILY MAG Stop: 04/24/19 08:59 Last Admin: 04/14/19 07:58 Dose: 1 tab Documented by: Nicotine (Nicoderm Cq) 14 mg TD QAM MAG Stop: 04/24/19 08:59 Last Admin: 04/14/19 07:58 Dose: 14 mg Documented by: Olanzapine (Zyprexa) 10 mg IM HS PRN PRN Reason: Undecided Stop: 04/24/19 08:44 Olanzapine (Zyprexa Zydis Od) 30 mg PO HS MAG Stop: 04/24/19 21:59 Last Admin: 04/13/19 21:06 Dose: 30 mg Documented by: Pyridoxine HCl (Vitamin B-6) 100 mg PO DAILY MAG Stop: 04/24/19 08:59 Last Admin: 04/14/19 07:58 Dose: 100 mg Documented by: Risperidone (Risperdal M) 1 mg PO BID PRN PRN Reason: psychosis Stop: 04/24/19 08:44 Sodium Chloride ([place] Nasal) 1 - 2 sprays NA PRN PRN PRN Reason: Nasal Dryness/Congestion Stop: 04/24/19 08:44 Mental Health & Subst Abuse Tx Therapist Name of Therapist: Denies Egg Crater Name of Egg Crater: Shruti Lopez Phone Number for Egg Crater: Case Management Appointment Comment: [phone], [place] [address] Post Discharge Appointments Primary Care Physician Name Of Family Doctor: Dr. Lopez Contact Information Discharge Discharge Address: [address] [place] [id number] CPT Code CPT Code 83554
[2019-04-14] MEDS: cloNIDine HCL 0.1 MG TAB PO SCH (21:03)
[2019-04-14] MEDS: OLANZAPINE ZYDIS 10 MG ORALLY DIS. TAB PO SCH (21:03)
[2019-04-15] MEDS: MAGNESIUM OXIDE 400 MG TAB PO SCH (08:48)
[2019-04-15] MEDS: CYANOCOBALAMIN 500 MCG TABLET (VITAMIN B-12) PO SCH (08:48)
[2019-04-15] MEDS: NICOTINE 14 MG/24 HR PATCH TD SCH (08:48)
[2019-04-15] MEDS: MULTIVITAMIN TAB PO SCH (08:48)
[2019-04-15] MEDS: PYRIDOXINE HCL 50 MG TAB PO SCH (08:48)
--- NOTE | 2019-04-15 13:02 | Psychiatric Progress Note ---
Date of Service April 15, 2019 Impression / Recommendations Impression The patient steadfastly refuses to speak with her prescribing physicians. He will not talk to the physician's cardiovascular physician assistant, and, in the past, has says that he will only speak with board certified physicians. However, I am a board certified psychiatrist, and for at least the past week the patient has not been willing to speak with me, either. Today, the patient appears to be particularly angry. The context is that he was informed yesterday that his community residential provider, Sh[facility] Guadalupe, is now unwilling to continue to hold his bed, within the context of his unwillingness to cooperate with treatment here at the hospital, his long history of uncooperative and nonadherent behaviors in the residential program, and his ongoing active symptomatology which, unfortunately, does not seem to be improving. He has been referred for and has been accepted by the [facility] for long-term psychiatric inpatient treatment. Clearly, the patient is unable to attend to his own activities of daily living, and the dangerous behaviors that precipitated the current admission are likely to recur to the degree that he would represent a risk to himself of serious physical harm and possibly . We are considering giving the patient a drug holiday from Zyprexa collateral reports indicates that Zyprexa (olanzapine) has been helpful in stabilizing the patient's psychosis in the community in the past. However, we have not seen any substantial improvement. Instead, the patient now seems to be more angry, withdrawn, and resistance. He is being given olanzapine Zydis, and there remains some suspicio n that he may be avoiding swallowing after medication administration. Today, after a fairly lengthy discussion in the team meeting, it was agreed that we would like to try a drug holiday from olanzapine. The history provided from previous providers is that olanzapine has helped stem the patient's psychosis and has improved his ability to cooperate with treatment. However, this certainly has not been the case during this admission and while the patient does not voice delusional believes, he remains suspicious, uncooperative, and largely uncommunicative. We also fear that a power dynamic is in play here with the patient quite angry at us for giving him medications that he tells us that he does not want. Hopefully, during a olanzapine drug holiday he will become willing to see us as being on his side and will be more comfortable telling us what is going on in his mind. (1) Schizophrenia: 02/25 - Continue home medication regimen - as refusing offerings of his antipsychotic, will likely require olanzapine IM (or alternative agent) over objection, given clear evidence of paranoia and delusional thought process - previously stabilized on this medication - Pt agreeable to taking all other medications, with exception of antipsychotic as mentioned above - Admitted to a locked inpatient behavioral health unit, on q15 minute safety checks - Encourage medication initiation/adjustments as indicated - Encourage participation in group and recreational therapies - Gather collateral information from outpatient providers and prison st aff - Suggest family meeting to involve outpatient supports in safety planning - Reschedule appropriate aftercare appointments 02/26 -Patient indicates willingness to sign a release for the [facility], will get collateral from their staff. -File for 303 involuntary commitment to be held tomorrow. -Recommend medications over objection, with an IM Zyprexa backup for refusal of oral medication. Involve outpatient treatment team to discuss ways to improve stability and compliance; consider long-acting injectable antipsychotic. -Order fasting labs for monitoring on an atypical antipsychotic once patient is more cooperative. 02/27 -The patient was retrained at his involuntary commitment hearing (303) this morning. -He has continuously and consistently refused psychiatric medications to date. However, today, when I explained that that a option that might become necessary in his case is medication over objection, and an intramuscular form, the patient said that he understood and that he would try medications that I prescribe. His initial preference would be olanzapine, but because olanzapine is not available in a long acting depot form, we would first like to try aripiprazole. He indicates that he is taken aripiprazole in the past and has been able to tolerate it, although he does not believe that it has been particularly helpful. -A trial dose of aripiprazole 15 mg by mouth, as a one-time dose, has been ordered and he assessed for efficacy. 02/28 -Appears to be tolerating initiation of Abilify so far. Remains delusional, paranoid. May consider further titration tomorrow -Aricept discontinued at patient's request on 02/27/2019. The medication has not been demonstrated to be efficacious for cognitive impairment associated with long-standing schizophrenia however we should be vigilant for slowing of mentation following discontinuation. 03/01 Patient fixated and irrational regarding access to clothing item as above today. Hospital environment becoming incorporated and delusions. Consider possibility that the aripiprazole is contributing to activation. We will increase to 20 mg tomorrow and also start Risperdal 1 mg p.o. twice daily as as needed. 03/02 - Continue with aripiprazole at 20mg daily, consider need for further titration - if tolerating and effective, eventual plan will be for conversion to Abilify Maintena - Pt has not yet utilized risperidone 03/03 - Increase aripiprazole to 25mg (equivalent to 30mg pill) and change to liquid formulation to decrease risk of cheeking/nonadherence, as patient does not believe he needs medication and had been noncompliant prior to hospitalization. - Fasting glucose and lipid profile ordered for tomorrow for monitoring on an atypical antipsychotic. - Private room due to psychosis, agitation, and inappropriate disrobing/sexual behavior. - Meeting with [facility] and [facility] staff when patient able to tolerate. 03/04 - Continue aripiprazole 25mg liquid (30mg pill equivalent) and continue to observe for improvement in thought process/content - consider conversion to Maintena if effective, versus trial of another agent if improvement remains limited - Fasting labs reviewed - all values WNL - Continue medically necessary private room - Request meeting with [facility] staff, in order to obtain details about patient's proximity to baseline 03/05 -Patient refusing liquid aripiprazole, but agrees to take the pill: Ordered 30 mg daily. -Schedule meeting with his case liner, [facility] and psych rehab staff. Consider involuntary outpatient commitment at the time of discharge. 03/06 -The patient has improved in that he is more reality based at this point. He continues to harbor fixed, systematized delusions, but is generally able to focus on reality based topics. -Although the patient tells me that he does not feel that aripiprazole has been effective, he is able to accept my opinion in the opinion of the staff that he has improved in response to aripiprazole. -The patient's main objection to aripiprazole oral solution is that he does not like the way it tastes, and within this context, he tells us that he is willing to accept Abilify Maintenaand requests that it be injected into his bu ttock. Abilify Maintena 300 mg IM ordered, and oral Abilify discontinued. We will resume oral Abilify if the patient subsequently changes his mind and refuses the injection. 03/07 resuming abilfiy oral given his refusal of FARAH form of abilify 03/08 is taking abilify po form but refusing abilify maintena form. advise close monitoring for potential of checking given pt's tendency to not want to take medications. 03/09 -The patient is flatly refusing to take aripiprazole in the form of Abilify Maintena. He is also been hesitant to take oral Abilify, but has been doing so. -The patient's lack of cooperation is thought possibly to be related to an un-expressed desire to not be discharged back to the community. He told me today that he left his meeting with his community providers after a few seconds because "just the side of them made me extremely anxious. My pulse elevated to 140." Later, he told me that he was still anxious about it and his pulse was "still around 130." The patient allowed me to take his pulse, and it was approximately 76. At that point he said, "did I say pulse? I meant systolic blood pressure." And when I pointed out that his systolic blood pressure of 130 is not considered to be a particular concern, he said "I mean diastolic." -Our hope had been that the patient would agree to accept a Depo form of medication. He was refusing Haldol Decanoate because of various side effects. Risperidone constant was ruled out as a first-line Depo medication because of the frequency of administration (the patient tends to get into power struggles over medications) and because he says that he is sensitive to "big needles." Invega would be an option, but currently the patient is being so uncooperative that our concern would be that he would cheek the oral tablets that we would have to give him first. Accordingly, the new strategy will be to discontinue Abilify, and resume olanzapine with olanzapine IM over objection if necessary. We will begin the olanzapine Zydis 20 mg at bedtime 03/10 -The patient took the prescribed dose of olanzapine Zydis 20 mg at bedtime last night. Today, he tells me that it "did not help at all." However, staff r eport that he has been somewhat more agreeable, more pleasant, and less paranoid today. -As he has with other providers, today he told me that I should have given him olanzapine 5 mg "to start", and I explained that he was already on olanzapine 20 mg when he came into the hospital and we know that he is able to tolerate that dose. He tells me that he did, in fact tolerate the dose and is not aware of any side effects, but, somewhat illogically, insisted that the dose was "too high for a starting dose." 03/11 - Continue current medication regimen at this time - olanzapine 20mg daily - Encourage participation in the milieu and in group programming as tolerated 03/12 -Continue current medication regimen. The patient's condition has not yet improved. -The patient does participate in select groups, but often tends to be disruptive. 03/13 -Today, the patient seems to be somewhat more cooperative and less frankly delusional. It was possible to engage in a mostly reality based conversation for 5 or 10 minutes at a time. Also, although he was unhappy with me when I refused to provide him with a dose of Valium for anxiety, he was able to remain pleasant and calm at this time, did not storm from the room." 03/14 and 03/15 -no change in medication will work on therapeutic alliance given patient is not participating 03/16 -304 involuntary commitment granted. -Patient remains completely uncooperative with treatment, refused his Zyprexa Zydis last evening, but then ultimately took it before he received the injection. I have a high suspicion for cheeking of antipsychotic medication, and we will continue to be vigilant with mouth checks, and work towards a long- acting injectable. 03/17 -Patient has been on Zyprexa 20 mg at bedtime for 1 week, with limited response. He is refusing to discuss other medication options. Per records, he has been prescribed up to 30 mg olanzapine in the past, so will increase his dose to this previously tolerated dose, as it is 1 of the few medications he has been willing to take. Continue IM backup for refusal, and Zyprexa Zydis formulation to decrease risk of cheeking. He is not compliant with mouth checks, but have asked staff to try to observe him for 10 minutes after taking the Zydis to ensure he is not spitting it out before it dissolves. 03/18 -Continue Zyprexa Zydis 30 mg at bedtime with IM backup. Consider switch to a different medication (?oral paliperidone with IM backup) if irritability and agitation continues. He has tried virtually every atypical antipsychotic and reports none of them were effective (although some trials were short due to nonadherence) and has a history of dystonia on haloperidol. Clozapine would be a reasonable choice, but he has been unwilling to even discuss medication options. -Consider some component of cognitive decline which could be contributing to his worsening presentation and will need to be monitored and worked up further once he is more psychiatrically stable. -Refer to [facility] in the event that he does not improve and long-term inpatient treatment is needed. 03/19 - Proceed with [facility] referral. 03/20 - Continue current medication regimen; patient refused EKG and CXR yesterday - refused again today - Continue attempts to gather information to make a referral to [facility] 03/23 - Proceed with [facility] referral - patient has refused EKG and CXR for multiple attempts. We will send most recent tests available - Continue current medication regimen at this time 03/24 -Attempted to hold diversion meeting with his outpatient [facility], prison director, and the [facility] MH/ID; patient refused to attend or participate in the meeting. 03/25 - 03/26 - Continue treatment plan as above - no change in patient's condition and he remains unwilling to participate meaningfully in treatment - Continue with [facility] referral 03/27 -The patient has been informed that the plan at this point is to transfer him to [facility] for long-term inpatient psychiatric treatment, given his refusal to adhere with treatment and his associated behaviors in the community when not adherent with psychiatric treatment. -The patient continues to refuse mouth checks after given dosages of Zyprexa Zydis, and there is some question regarding whether he is actually ingesting this medication. He also would not cooperate with laboratory testing. -There has been a question regarding the patient's cognitive functions, and prior to admission he had been taking Aricept. When he does cooperate with this, I have not seen evidence of any substantial cognitive impairment. He may have mild cognitive impairment, but does not fully cooperate with formal cognitive assessment. He easily recalls the names of his providers, the names of the medications he is taking, the names of the various infectious agents that he believes are causing some of his psychiatric symptoms, the names of certain chemicals that he believes will rid him of the reference to infections, and is able to discuss current events such as recent news items. His assertion that he wants to return to his apartment in the community seems belied by his steadfast refusal to cooperate with those interventions I would make it possible for him to return, and there is some suspicion that although the patient remains floridly psychotic he may also be intentionally sabotaging discharge. 03/28 - 03/30 -There is been no change room attendant the past 2 weeks, and long-term inpatient treatment at the [facility] is indicated. 03/31 - Continue current medication regimen - Pt briefly verbalized willingness for FARAH, but was not agreeable to medication adjustments to allow for this to be possible - If he should change his mind; recommendation is for trial of Invega orally to establish tolerability, then consideration for Invega Sustenna - unwilling for this today 04/01 - 04/03 - Continue current medication regimen - Continues to refuse FARAH, will continue discussion daily as this is the reported preference of his CRR 04/04 -Questionable positive PPD measuring 13 mm but history of confinement places him at higher risk. Patient refused chest x-ray today but we will reapproach. No active symptoms of infection. Order for sputum culture and smear today for confirmation. 04/05 -PPD now appears negative. Would suggest follow through with sputum smear and culture for confirmation as previously ordered -Continue treatment plan as above 04/06 - PPD reportedly negative, patient unable to follow-up with sputum smear - therefore discontinued - Continue medication regimen as above - unwilling to discuss conversion to an FARAH - Meeting today with representation from [facility] to discuss discharge planning 04/07 - Continue medication regimen as above - remains unwilling to discuss changes - Additional meeting with CRR and CM scheduled for next week - We have been regularly assessing patient's condition and appropriateness to go outside since his 30-day treatment plan review. As patient continues to be unwilling to participate in a meaningful conversation with providers regarding his condition, we continue to be unable to determine if he is appropriate to be taken off the unit - therefore will await ability to discuss the topic in a meaningful way prior to making this determination. Will continue regular evaluation. 04/08 - 04/12 - Continue current medication regimen, as patient unwilling to discuss changes - Attempted again to determine if appropriate to go outside, patient unwilling to participate in conversation despite being told the goal of allowing him to go outside - Meeting with CM and CRR director scheduled for 04/13 at 1030 04/13 - Continue Zyprexa 30mg daily - unwilling to engage in conversation to discuss changes - Remains unwilling to engage in conversation to determine if he is appropriate to go outside, he has been made aware this is a possibility for him - Meeting for attempted diversion resulted in decision to no longer hold patient's [facility] bed, [facility] admission is supported based on little to no improvement since admission and limited willingness to engage in conversations regarding medication adjustments - We have been asked to attempt to get a QuantiFERON-TB Gold Plus test, despite negative PPD reading within acceptable timeframe - pt unwilling to engage in conversation to obtain consent, further indicating why long-term inpatient psychiatric hospitalization is necessary. Will continue to attempt to gain consent for this testing to be completed 04/15 -The patient is slightly more communicative today and that he does answer at least one question which was whether he would be in agreement if we offered him a drug holiday from olanzapine. His response was in the affirmative.. He also said "thank you." -The patient continues to appear suspicious and he clearly is angry at and unwilling to cooperate with staff. He is particularly bumptious with individuals who he sees as not fully trained and fully qualified. -The plan remains transfer to the [facility] for long-term psychiatric care. Our hope remains that we will be able to [facility], but the patient, as noted above, remains uncommunicative and resistant. Perhaps contributing to the patient's obvious anger and distress is the fact that he has learned this week that his residential program is unwilling to allow him to return and has stopped holding his bed for other individuals. (2) Substance abuse: 02/25 - Pt has reported history of substance abuse, and recommendation has consistently been for avoidance of substances with significant abuse potential. - PDMP queried - most recent prescriptions below - lorazepam 0.5mg #60 tabs for 30 day supply - Dr. Alves - filled 02/12/2019 - alprazolam 0.5mg #90 tabs for 30 day supply - Dr. Lopez - filled 01/16/2019 - temazepam 30mg #30 caps for 30 day supply - Dr. Lopez - filled 01/16/2019 - Will continue lorazepam 0.5mg BID prn on admission, as only medication that is seemingly active - toxicology screen is negative for benzodiazepines, which questions if he has been taking the medication appropriately - Ideally will taper and discontinue the lorazepam, as recommendation remains that substances with abuse potential be avoided 02/26 -The patient's outpatient providers, during a meeting this morning, report that the patient tends to successfully convince physicians to prescribe benzodiazepines for him and that, in the past, he has abused him to the degree that he is practically obtunded. 02/27 -A repeat check of the PDMP reveals that the patient is consistently being prescribed lorazepam 0.5 mg twice daily (number 60/month) by a Dr. Brent Alves. He is also being prescribed alprazolam 0.[address] mg [address] Jeff Lopez, with the most recent previous prescription of alprazolam being on 01/16/[address] Lopez also prescribed temazepam 30 mg capsules #30 on 01/16/2019. According to his residential providers, no temazepam capsules were found among the patient's belongings. His most recent prescription for lorazepam 0.5 mg tablets was filled on 02/12/2019. 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 In the past, he reportedly has used clonazepam and temazepam. -I advised the patient that because of his history of misuse of benzodiazepines we would not be prescribing benzodiazepines during his hospital stay. An as needed order for lorazepam has not been used during hospital stay, and I discontinued the order today. 03/02 - Will need to coordinate care with his PCP and outpatient psychiatrist prior to discharge regarding the above. 03/04 - Charge nurse spoke with the above offices regarding concern for continued benzodiazepine prescriptions - Records will be faxed to their offices on discharge, as all benzodiazepines were discontinued during this hospitalization 03/06 -The patient did not request benzodiazepines and did not complain of anxiety today. I suggested to him that perhaps Abilify is also helping with anxiety in his case, and he responded by saying "perhaps." 03/09 -Today, the patient is insisting that what he needs is "benzodiazepines," and explains that the reason he "needs" benzodiazepines is that he has "benzodiazepine receptors," and that he is the only medications that work. He is unable to process warnings about the risks of benzodiazepines in the elderly, including increased risk of falls and mortality. Clearly, the patient is seeking benzodiazepines and has no insight into the associated risks. He also insists that he has never had trouble with benzodiazepines in the past, although there is well-documented of this. 03/10 -Today, the patient repeated his insistence that he needs benzodiazepines and that benzodiazepines are the only medications that work because he has "benzo diazepine receptors." After being told that everyone has central nervous system receptors to which benzodiazepines may attach, he replied, "That may be, but some of people need to have benzodiazepines forearm benzodiazepine receptors. 03/12 -Continues to request Benzodiazepines. 03/13 -Requests Valium for his "benzodiazepines receptors." 03/27 -Refuses to cooperate with assessment today, but has recently told staff that he needs "either Valium or Ativan." -The patient apparently has no working insight into his history of abuse of prescription medications (benzodiazepines). 04/15 -The patient has not reference to request for benzodiazepines recently. However, the context is that he has not communicated much of anything directly, a other than the occasional need for self-care items. (3) Hypertension: 02/25 - Continue home dose of clonidine 0.1mg qHS 03/01 Watch mildly elevated blood pressures as patient has been refusing clonidine 03/03 - BP normal past two days, and low today 03/10 -The patient's blood pressure today was 136/73. His pulse was 71 03/14 - elevated BP it is not urgent but will need monitored. 03/15 - BP WNL 03/26 - BP continues to be WNL 04/02 - BP remains within normal limits; continue daily vitals per standard admission order set - Will consider acute phase of this problem resolved at this time Inventory Assets Strengths: Intelligence. Personable, when willing to cooperate. Interests include fashion and design. Needs: Adherence with medication regimens. Willingness to agree to long-term Depo medications because of his history of nonadherence in the community. Willingness to cooperate with treatment, including psychiatric assessments. Risk Factors Assessment Male: Yes : Yes Do You Have Access To A Gun?: No Health Problems: Yes Mental Health Diagnoses: Yes Substance Use Disorders: Yes Protective Factors Assessment Yazidism Beliefs: No : No Responsible for Young Children: No Employed: No Stable Relationships: No Supportive Family: No Good Rapport with Provider: No Absence of Any Risk Factors Above: No Interval History Chief Complaint "I'm okay. I don't want to talk." Review of Systems Sleep Information Total Hours of Sleep: 8.5 Sleep Comments: pton q-15 minute checks Meal Information Percent Meal Consumed - Breakfast: 100 Percent Meal Consumed - Lunch: 100 Percent Meal Consumed - Dinner: 100 Nutrition Comment: per meal record Subjective Subjective Patient was seen & assessed and interval progress reviewed with treatment team. I also attempted to meet with the patient individually in order to assess his current mental status, evaluate his response to treatment, coordinate any tatyana nges in his treatment regimen with the patient, and address issues and concerns that may arise. As he has fairly consistently with all other providers for the past several weeks he has simply asked me to leave and not speak with him. However, today he was slightly more receptive and did speak with me briefly about his medications. We discussed a possibility of taking a "drug holiday" from olanzapine, and he told me that he was receptive to the idea and said "thank you" when I told him that I would stop this medication, at least for the time being, in order to reassess him. Otherwise, the patient was uncooperative Physical Exam Psychiatric Would not cooperate Apperance: appropriately dressed, appropriately groomed and appeared stated age Eye Contact: + poor eye contact Motor Behavior: steady gait and station No spontaneous speech. Responded to questions with only a few words. Affect: + irritable affect Declined to respond The patient said very little. We could not assess his thought processes. Cannot cooperate with assessment, but appears suspicious and unwilling to trust any providers. The patient does not voice suicidal or homicidal thoughts, but does not respond to questions in this regard. He is not engaged in any self-injurious behaviors and is maintaining activities of daily living, and coming out of his room to take his meals and, occasionally, to watch television. Does not respond to questions Appears to be responding to internal stimuli but will not respond to formal questions regarding perceptual disturbances. Unable to assess today because of poor cooperation. Estimated Intelligence: + above average estimated intelligence Insight: + severely impaired insight Judgement: + severely impaired judgement Vital Signs (Past 24 Hours) Last Vital Signs Temp 36.3 C L 04/15/19 06:46 Pulse 76 08/28/19 06:47 Resp 16 04/15/19 06:46 BP 123/75 04/15/19 06:47 Pulse Ox 96 02/24/19 08:10 Results & Data Current Inpatient Medications Current Inpatient Medications: Current Inpatient Medications Acetaminophen (Tylenol) 650 mg PO Q4H PRN PRN Reason: Headache or Minor Fever Stop: 04/24/19 08:39 Al Hydrox/Mg Hydrox/Simethicone (Maalox) 30 ml PO Q4H PRN PRN Reason: GI Upset Stop: 04/24/19 08:39 Benztropine Mesylate (Cogentin) 0.5 mg PO BID PRN PRN Reason: dystonia Stop: 04/24/19 08:39 Bismuth Subsalicylate (Kaopectate) 15 ml PO PRN PRN PRN Reason: Loose Stool Stop: 04/24/19 08:39 Clonidine HCl (Catapres) 0.1 mg PO HS MAG Stop: 04/24/19 21:59 Last Admin: 04/14/19 21:03 Dose: 0.1 mg Documented by: Cyanocobalamin (Vitamin B-12) 500 mcg PO DAILY MAG Stop: 04/24/19 08:59 Last Admin: 04/15/19 08:48 Dose: 500 mcg Documented by: Hydroxyzine HCl (Vistaril) 50 mg PO HSZ PRN PRN Reason: Insomnia Stop: 04/24/19 08:44 Hydroxyzine HCl (Vistaril) 25 mg PO Q4H PRN PRN Reason: Anxiety Stop: 04/24/19 08:44 Magnesium Citrate (Citrate) 148 ml PO BID PRN PRN Reason: constipation Stop: 04/22/19 20:59 Last Admin: 03/23/19 17:19 Dose: 148 ml Documented by: Magnesium Hydroxide (Milk Of Magnesia) 30 ml PO DAILY PRN PRN Reason: Heartburn Stop: 04/24/19 08:44 Magnesium Oxide (Mag-Ox) 400 mg PO DAILY MAG Stop: 04/24/19 08:59 Last Admin: 04/15/19 08:48 Dose: 400 mg Documented by: Miscellaneous (Remove Nicoderm Patch) 1 ea N/A HS MAG Stop: 04/24/19 21:59 Last Admin: 04/14/19 21:04 Dose: 1 ea Documented by: Multivitamins (Multivitamin Tab) 1 tab PO DAILY MAG Stop: 04/24/19 08:59 Last Admin: 04/15/19 08:48 Dose: 1 tab Documented by: Nicotine (Nicoderm Cq) 14 mg TD QAM MAG Stop: 04/24/19 08:59 Last Admin: 04/15/19 08:48 Dose: 14 mg Documented by: Olanzapine (Zyprexa) 10 mg IM HS PRN PRN Reason: Undecided Stop: 04/24/19 08:44 Olanzapine (Zyprexa Zydis Od) 30 mg PO HS MAG Stop: 04/24/19 21:59 Last Admin: 04/14/19 21:03 Dose: 30 mg Documented by: Pyridoxine HCl (Vitamin B-6) 100 mg PO DAILY MAG Stop: 04/24/19 08:59 Last Admin: 04/15/19 08:48 Dose: 100 mg Documented by: Risperidone (Risperdal M) 1 mg PO BID PRN PRN Reason: psychosis Stop: 04/24/19 08:44 Sodium Chloride ([place] Nasal) 1 - 2 sprays NA PRN PRN PRN Reason: Nasal Dryness/Congestion Stop: 04/24/19 08:44 Mental Health & Subst Abuse Tx Therapist Name of Therapist: Sammy Licensed Weigher Name of Licensed Weigher: Shruti Lopez Phone Number for Licensed Weigher: Case Management Appointment Comment: [phone], [place] [address] Post Discharge Appointments Primary Care Physician Name Of Family Doctor: Dr. Lopez Contact Information Discharge Discharge [address]: [address] [place] [id number] CPT Code CPT Code 02970 (1) Schizophrenia Schizophrenia type: paranoid schizophrenia Qualified Code(s): F20.0 - Paranoid schizophrenia (2) Hypertension Hypertension type: essential hypertension Qualified Code(s): I10 - Essential (primary) hypertension
[2019-04-15] MEDS: cloNIDine HCL 0.1 MG TAB PO SCH (20:58)
--- NOTE | 2019-04-16 09:00 | Psychiatric Progress Note ---
Date of Service April 16, 2019 Impression / Recommendations Impression Pt continues to refuse to speak with prescribers is any productive manner. While he may mumble brief answers to some staff, he has largely given clinicians the silent treatment for weeks now. As it is clearly no more effective for him than other medication trials, and in attempts to build rapport with the patient, treatment team had decided to trial a drug holiday and offer the patient discontinuation of olanzapine. This decision was also made due to patient being unhappy with the prescribed dose and staff being unsure that he is truly taking the medication, as he refuses to cooperate with mouth checks and has not shown improvements with the medication. Pt was offered drug holiday on 04/15/19 and verbalized agreement with this idea. He remains resistant to talking, and has so far continued with the silent treatment. He attends some group programming, but participation is limited. We will continue to meet with the patient regularly, and continue to finds ways we can build bridges between staff and the patient to further enhance rapport. Despite not engaging in treatment - patient continues to eat his meals regularly and has been showering and dressing himself appropriately. His long history of uncooperative and nonadherent behaviors in the residential program, and his ongoing active symptomatology which, unfortunately, does not seem to be improving - indicates a need for ongoing inpatient psychiatric treatment. Pt has been accepted to [facility] and we are awaiting bed date, as he was accepted. (1) Schizophrenia: 02/25 - Continue home medication regimen - as refusing offerings of his antipsychotic, will likely require olanzapine IM (or alternative agent) over objection, given clear evidence of paranoia and delusional thought process - previously stabilized on this medication - Pt agreeable to taking all other medications, with exception of antipsychotic as mentioned above - Admitted to a locked inpatient behavioral health unit, on q15 minute safety checks - Encourage medication initiation/adjustments as indicated - Encourage participation in group and recreational therapies - Gather collateral information from outpatient providers and senior care staff - Suggest family meeting to involve outpatient supports in safety planning - Reschedule appropriate aftercare appointments 02/26 -Patient indicates willingness to sign a release for the [facility] senior care, will get collateral from their staff. -File for 303 involuntary commitment to be held tomorrow. -Recommend medications over objection, with an IM Zyprexa backup for refusal of oral medication. Involve outpatient treatment team to discuss ways to improve stability and compliance; consider long-acting injectable antipsychotic. -Order fasting labs for monitoring on an atypical antipsychotic once patient is more cooperative. 02/27 -The patient was retrained at his involuntary commitment hearing (303) this morning. -He has continuously and consistently refused psychiatric medications to date. However, today, when I explained that that a option that might become necessary in his case is medication over objection, and an intramuscular form, the patient said that he understood and that he would try medications that I prescribe. His initial preference would be olanzapine, but because olanzapine is not available in a long acting depot form, we would first like to try aripiprazole. He indicates that he is taken aripiprazole in the past and has been able to tolerate it, although he does not believe that it has been particularly helpful. -A trial dose of aripiprazole 15 mg by mouth, as a one-time dose, has been ordered and he assessed for efficacy. 02/28 -Appears to be tolerating initiation of Abilify so far. Remains delusional, paranoid. May consider further titration tomorrow -Aricept discontinued at patient's request on 02/27/2019. The medication has not been demonstrated to be efficacious for cognitive impairment associated with long-standing schizophrenia however we should be vigilant for slowing of mentation following discontinuation. 03/01 Patient fixated and irrational regarding access to clothing item as above today. Hospital environment becoming incorporated and delusions. Consider possibility that the aripiprazole is contributing to activation. We will increase to 20 mg tomorrow and also start Risperdal 1 mg p.o. twice daily as as needed. 03/02 - Continue with aripiprazole at 20mg daily, consider need for further titration - if tolerating and effective, eventual plan will be for conversion to Abilify Maintena - Pt has not yet utilized risperidone 03/03 - Increase aripiprazole to 25mg (equivalent to 30mg pill) and change to liquid formulation to decrease risk of cheeking/nonadherence, as patient does not believe he needs medication and had been noncompliant prior to hospitalization. - Fasting glucose and lipid profile ordered for tomorrow for monitoring on an atypical antipsychotic. - Private room due to psychosis, agitation, and inappropriate disrobing/sexual behavior. - Meeting with [facility] and [facility] staff when patient able to tolerate. 03/04 - Continue aripiprazole 25mg liquid (30mg pill equivalent) and continue to observe for improvement in thought process/content - consider conversion to Maintena if effective, versus trial of another agent if improvement remains limited - Fasting labs reviewed - all values WNL - Continue medically necessary private room - Request meeting with [facility] staff, in order to obtain details about patient's proximity to baseline 03/05 -Patient refusing liquid aripiprazole, but agrees to take the pill: Ordered 30 mg daily. -Schedule meeting with his case technician, [facility] and psych rehab staff. Consider involuntary outpatient commitment at the time of discharge. 03/06 -The patient has improved in that he is more reality based at this point. He continues to harbor fixed, systematized delusions, but is generally able to focus on reality based topics. -Although the patient tells me that he does not feel that aripiprazole has been effective, he is able to accept my opinion in the opinion of the staff that he has improved in response to aripiprazole. -The patient's main objection to aripiprazole oral solution is that he does not like the way it tastes, and within this context, he tells us that he is willing to accept Abilify Maintenaand requests that it be injected into his buttock. Abilify Maintena 300 mg IM ordered, and oral Abilify discontinued. We will resume oral Abilify if the patient subsequently changes his mind and re fuses the injection. 03/07 resuming abilfiy oral given his refusal of FARAH form of abilify 03/08 is taking abilify po form but refusing abilify maintena form. advise close monitoring for potential of checking given pt's tendency to not want to take medications. 03/09 -The patient is flatly refusing to take aripiprazole in the form of Abilify Maintena. He is also been hesitant to take oral Abilify, but has been doing so. -The patient's lack of cooperation is thought possibly to be related to an un-expressed desire to not be discharged back to the community. He told me today that he left his meeting with his community providers after a few seconds because "just the side of them made me extremely anxious. My pulse elevated to 140." Later, he told me that he was still anxious about it and his pulse was "still around 130." The patient allowed me to take his pulse, and it was approximately 76. At that point he said, "did I say pulse? I meant systolic blood pressure." And when I pointed out that his systolic blood pressure of 130 is not considered to be a particular concern, he said "I mean diastolic." -Our hope had been that the patient would agree to accept a Depo form of medication. He was refusing Haldol Decanoate because of various side effects. Risperidone constant was ruled out as a first-line Depo medication because of the frequency of administration (the patient tends to get into power struggles over medications) and because he says that he is sensitive to "big needles." Invega would be an option, but currently the patient is being so uncooperative that our concern would be that he would cheek the oral tablets that we would have to give him first. Accordingly, the new strategy will be to discontinue Abilify, and resume olanzapine with olanzapine IM over objection if necessary. We will begin the olanzapine Zydis 20 mg at bedtime 03/10 -The patient took the prescribed dose of olanzapine Zydis 20 mg at bedtime last night. Today, he tells me that it "did not help at all." However, staff report that he has been somewhat more agreeable, more pleasant, and less paranoid today. -As he has with other providers, today he told me that I should have given him olanzapine 5 mg "to start", and I explained that he was already on olanzapine 20 mg when he came into the hospital and we know that he is able to tolerate that dose. He tells me that he did, in fact tolerate the dose and is not aware of any side effects, but, somewhat illogically, insisted that the dose was "too high for a starting dose." 03/11 - Continue current medication regimen at this time - olanzapine 20mg daily - Encourage participation in the milieu and in group programming as tolerated 03/12 -Continue current medication regimen. The patient's condition has not yet im proved. -The patient does participate in select groups, but often tends to be disruptive. 03/13 -Today, the patient seems to be somewhat more cooperative and less frankly delusional. It was possible to engage in a mostly reality based conversation for 5 or 10 minutes at a time. Also, although he was unhappy with me when I refused to provide him with a dose of Valium for anxiety, he was able to remain pleasant and calm at this time, did not storm from the room." 03/14 and 03/15 -no change in medication will work on therapeutic alliance given patient is not participating 03/16 -304 involuntary commitment granted. -Patient remains completely uncooperative with treatment, refused his Zyprexa Zydis last evening, but then ultimately took it before he received the injection. I have a high suspicion for cheeking of antipsychotic medication, and we will continue to be vigilant with mouth checks, and work towards a long- acting injectable. 03/17 -Patient has been on Zyprexa 20 mg at bedtime for 1 week, with limited response. He is refusing to discuss other medication options. Per records, he has been prescribed up to 30 mg olanzapine in the past, so will increase his dose to this previously tolerated dose, as it is 1 of the few medications he has been willing to take. Continue IM backup for refusal, and Zyprexa Zydis formulation to decrease risk of cheeking. He is not compliant with mouth checks, but have asked staff to try to observe him for 10 minutes after taking the Zydis to ensure he is not spitting it out before it dissolves. 03/18 -Continue Zyprexa Zydis 30 mg at bedtime with IM backup. Consider switch to a different medication (?oral paliperidone with IM backup) if irritability and agitation continues. He has tried virtually every atypical antipsychotic and reports none of them were effective (although some trials were short due to nonadherence) and has a history of dystonia on haloperidol. Clozapine would be a reasonable choice, but he has been unwilling to even discuss medication options. -Consider some component of cognitive decline which could be contributing to his worsening presentation and will need to be monitored and worked up further once he is more psychiatrically stable. -Refer to [facility] in the event that he does not improve and long-term inpatient treatment is needed. 03/19 - Proceed with [facility] referral. 03/20 - Continue current medication regimen; patient refused EKG and CXR yesterday - refused again today - Continue attempts to gather information to make a referral to [facility] 03/23 - Proceed with [facility] referral - patient has refused EKG and CXR for multiple attempts. We will send most recent tests available - Continue current medication regimen at this time 03/24 -Attempted to hold diversion meeting with his outpatient [facility], senior care director, and the [facility]; patient refused to attend or participate in the meeting. 03/25 - 03/26 - Continue treatment plan as above - no change in patient's condition and he remains unwilling to participate meaningfully in treatment - Continue with [facility] referral 03/27 -The patient has been informed that the plan at this point is to transfer him to [facility] for long-term inpatient psychiatric treatment, given his refusal to adhere with treatment and his associated behaviors in the community when not adherent with psychiatric treatment. -The patient continues to refuse mouth checks after given dosages of Zyprexa Zydis, and there is some question regarding whether he is actually ingesting this medication. He also would not cooperate with laboratory testing. -There has been a question regarding the patient's cognitive functions, and prior to admission he had been taking Aricept. When he does cooperate with this, I have not seen evidence of any substantial cognitive impairment. He may have mild cognitive impairment, but does not fully cooperate with formal cognitive assessment. He easily recalls the names of his providers, the names of the medications he is taking, the names of the various infectious agents that he believes are causing some of his psychiatric symptoms, the names of certain chemicals that he believes will rid him of the reference to infections, and is able to discuss current events such as recent news items. His assertion that he wants to return to his apartment in the community seems belied by his steadfast refusal to cooperate with those interventions I would make it possible for him to return, and there is some suspicion that although the patient remains floridly psychotic he may also be intentionally sabotaging discharge. 03/28 - 03/30 -There is been no change coordinator the past 2 weeks, and long-term inpatient treatment at the [facility] is indicated. 03/31 - Continue current medication regimen - Pt briefly verbalized willingness for FARAH, but was not agreeable to medication adjustments to allow for this to be possible - If he should change his mind; recommendation is for trial of Invega orally to establish tolerability, then consideration for Invega Sustenna - unwilling for this today 04/01 - 04/03 - Continue current medication regimen - Continues to refuse FARAH, will continue discussion daily as this is the reported preference of his CRR 04/04 -Questionable positive PPD measuring 13 mm but history of confinement places him at higher risk. Patient refused chest x-ray today but we will reapproach. No active symptoms of infection. Order for sputum culture and smear today for confirmation. 04/05 -PPD now appears negative. Would suggest follow through with sputum smear and culture for confirmation as previously ordered -Continue treatment plan as above 04/06 - PPD reportedly negative, patient unable to follow-up with sputum smear - therefore discontinued - Continue medication regimen as above - unwilling to discuss conversion to an FARAH - Meeting today with representation from [facility] to discuss discharge planning 04/07 - Continue medication regimen as above - remains unwilling to discuss changes - Additional meeting with CRR and CM scheduled for next week - We have been regularly assessing patient's condition and appropriateness to go outside since his 30-day treatment plan review. As patient continues to be unwilling to participate in a meaningful conversation with providers regarding his condition, we continue to be unable to determine if he is appropriate to be taken off the unit - therefore will await ability to discuss the topic in a meaningful way prior to making this determination. Will continue regular evaluation. 04/08 - 04/12 - Continue current medication regimen, as patient unwilling to discuss changes - Attempted again to determine if appropriate to go outside, patient unwilling to participate in conversation despite being told the goal of allowing him to go outside - Meeting with CM and CRR director scheduled for 04/13 at 1030 04/13 - Continue Zyprexa 30mg daily - unwilling to engage in conversation to discuss changes - Remains unwilling to engage in conversation to determine if he is appropriate to go outside, he has been made aware this is a possibility for him - Meeting for attempted diversion resulted in decision to no longer hold patient's CRR bed, [facility] admission is supported based on little to no improvement since admission and limited willingness to engage in conversations regarding medication adjustments - We have been asked to attempt to get a QuantiFERON-TB Gold Plus test, despite negative PPD reading within acceptable timeframe - pt unwilling to engage in conversation to obtain consent, further indicating why long-term inpatient psychiatric hospitalization is necessary. Will continue to attempt to gain consent for this testing to be completed 04/15 -The patient is slightly more communicative today and that he does answer at least one question which was whether he would be in agreement if we offered him a drug holiday from olanzapine. His response was in the affirmative.. He also said "thank you." -The patient continues to appear suspicious and he clearly is angry at and unwilling to cooperate with staff. He is particularly bumptious with individuals who he sees as not fully trained and fully qualified. -The plan remains transfer to the [facility] for long-term psychiatric care. Our hope remains that we will be able to divert the patient from the [facility], but the patient, as noted above, remains uncommunicative and resistant. Perhaps contributing to the patient's obvious anger and distress is the fact that he has learned this week that his residential program is unwilling to allow him to return and has stopped holding his bed for other individuals. 04/16 - Continue current treatment plan, which includes holiday from olanzapine as a rapport building attempt, and due to concerns that he is more irritable and resistant to treatment - which is obviously not beneficial for his overall condition. - Attempted to communicate with the patient today via written/printed text - will add addendum to this note if patient was willing to complete the sheet and respond to questions (2) Substance abuse: 02/25 - Pt has reported history of substance abuse, and recommendation has consistently been for avoidance of substances with significant abuse potential. - PDMP queried - most recent prescriptions below - lorazepam 0.5mg #60 tabs for 30 day supply - Dr. Alves - filled 02/12/2019 - alprazolam 0.5mg #90 tabs for 30 day supply - Dr. Lopez - filled 01/16/2019 - temazepam 30mg #30 caps for 30 day supply - Dr. Lopez - filled 01/16/2019 - Will continue lorazepam 0.5mg BID prn on admission, as only medication that is seemingly active - toxicology screen is negative for benzodiazepines, which questions if he has been taking the medication appropriately - Ideally will taper and discontinue the lorazepam, as recommendation remains that substances with abuse potential be avoided 02/26 -The patient's outpatient providers, during a meeting this morning, report that the patient tends to successfully convince physicians to prescribe benzodiazepines for him and that, in the past, he has abused him to the degree that he is practically obtunded. 02/27 -A repeat check of the PDMP reveals that the patient is consistently being prescribed lorazepam 0.5 mg twice daily (number 60/month) by a . Brent Alves. He is also being prescribed alprazolam 0.[address] mg [address] Jeff Lopez, with the most recent previous prescription of alprazolam being on 01/16/[address] Lopez also prescribed temazepam 30 mg capsules #30 on 01/16/2019. According to his residential providers, no temazepam capsules were found among the patient's belongings. His most recent prescription for lorazepam 0.5 mg tablets was filled on 02/12/2019. 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 In the past, he reportedly has used clonazepam and temazepam. -I advised the patient that because of his history of misuse of benzodiazepines we would not be prescribing benzodiazepines during his hospital stay. An as needed order for lorazepam has not been used during hospital stay, and I discontinued the order today. 03/02 - Will need to coordinate care with his PCP and outpatient psychiatrist prior to discharge regarding the above. 03/04 - Charge nurse spoke with the above offices regarding concern for continued benzodiazepine prescriptions - Records will be faxed to their offices on discharge, as all benzodiazepines were discontinued during this hospitalization 03/06 -The patient did not request benzodiazepines and did not complain of anxiety today. I suggested to him that perhaps Abilify is also helping with anxiety in his case, and he responded by saying "perhaps." 03/09 -Today, the patient is insisting that what he needs is "benzodiazepines," and explains that the reason he "needs" benzodiazepines is that he has "benzodiazepine receptors," and that he is the only medications that work. He is unable to process warnings about the risks of benzodiazepines in the elderly, including increased risk of falls and mortality. Clearly, the patient is seeking benzodiazepines and has no insight into the associated risks. He also insists that he has never had trouble with benzodiazepines in the past, although there is well-documented of this. 03/10 -Today, the patient repeated his insistence that he needs benzodiazepines and that benzodiazepines are the only medications that work because he has "benzodiazepine receptors." After being told that everyone has central nervous system receptors to which benzodiazepines may attach, he replied, "That may be, but some of people need to have benzodiazepines forearm benzodiazepine receptors. 03/12 -Continues to request Benzodiazepines. 03/13 -Requests Valium for his "benzodiazepines receptors." 03/27 -Refuses to cooperate with assessment today, but has recently told staff that he needs "either Valium or Ativan." -The patient apparently has no working insight into his history of abuse of prescription medications (benzodiazepines). 04/15 -The patient has not reference to request for benzodiazepines recently. However, the context is that he has not communicated much of anything directly, a other than the occasional need for self-care items. (3) Hypertension: 02/25 - Continue home dose of clonidine 0.1mg qHS 03/01 Watch mildly elevated blood pressures as patient has been refusing clonidine 03/03 - BP normal past two days, and low today 03/10 -The patient's blood pressure today was 136/73. His pulse was 71 03/14 - elevated BP it is not urgent but will need monitored. 03/15 - BP WNL 03/26 - BP continues to be WNL 04/02 - BP remains within normal limits; continue daily vitals per standard admission order set - Will consider acute phase of this problem resolved at this time Inventory Assets Strengths: Intelligence. Personable, when willing to cooperate. Interests include fashion and design. Needs: Adherence with medication regimens. Willingness to agree to long-term Depo medications because of his history of nonadherence in the community. Willingness to cooperate with treatment, including psychiatric assessments. Risk Factors Assessment Male: Yes : Yes Do You Have Access To A Gun?: No Health Problems: Yes Mental Health Diagnoses: Yes Substance Use Disorders: Yes Protective Factors Assessment Denominational Beliefs: No : No Responsible for Young Children: No Employed: No Stable Relationships: No Supportive Family: No Good Rapport with Provider: No Absence of Any Risk Factors Above: No Interval History Identifying Information SCOTT ROBERTO is a 73-year-old M who currently lives at a [facility] in [place]. Pt has a history of schizophrenia and is known to our unit from several previous admissions, most recently in 09/2016. Pt and was admitted on 02/24/19 16:40 on a 302 involuntary commitment for exacerbation of schizophrenia and heightened paranoia resulting in belief he needed to hide in a dumpster to seek refuge from impending bombings. Pt was found by [facility] staff and brought to the ED by police. He is on a 304 involuntary commitment as of 03/16/19; pt was accepted at [facility] on 04/02/19, awaiting bed date. Chief Complaint "[]". Review of Systems Notes Patient was unwilling to participate in interview today, unable to thoroughly assess review of systems. Sleep Information Total Hours of Sleep: 7.75 Sleep Comments: pton q-15 minute checks Meal Information Percent Meal Consumed - Breakfast: 100 Percent Meal Consumed - Lunch: 100 Percent Meal Consumed - Dinner: 100 Nutrition Comment: per meal record Subjective Subjective Patient was seen & assessed and interval progress reviewed with nursing and social work. Staff reports the patient has not demonstrated a significant change in his presentation. Decision was made during treatment team to trial discontinuation of olanzapine, as patient appears to be more angry and resistant to conversations with staff over time. This behavior was demonstrated even prior to learning he could not return to his bed at the [facility]. Pt was seen today to assess progress since admission. Pt was not agreeable to speak with this provider. He looked up from his bed when this provider entered the room, but refused to speak. This provider set a printed sheet of paper in his room and requested that the patient look over the questions and answer them if he is willing. Pt did not acknowledge this request, but he was informed where the provider set the paper and that he could return it to any of the staff members. Pt continued to not speak. This provider thanked him for his time and left the room. The questions sheet that was typed for the patient addressed any changes since discontinuing olanzapine. It asked that the patient rate his mood, and report if his sleep and energy level were improved or worsened. Pt was also asked about thoughts of self-harm and other needs. The paper included a statement saying it would be shredded after his answers were read, and not kept in his chart. This was included as the patient continues to verbalize in groups that he is concerned about participating as he does not want to "testify against himself." Physical Exam Psychiatric Orientation: alert; + uncooperative Apperance: appropriately dressed and appropriately groomed Eye Contact: + poor eye contact (intentionally avoiding eye contact) Motor Behavior: no abnormal motor movements (observed while laying in bed) Speech: + abnormal rate/rhythm/volume of speech (refused to communicate with this provider) Affect: + depressed affect and + irritable affect Estimated Intelligence: consistent with education level Insight: + severely impaired insight Judgement: + severely impaired judgement Vital Signs (Past 24 Hours) Last Vital Signs Temp 36.5 C 04/16/19 06:00 Pulse 64 04/16/19 06:38 Resp 18 04/16/19 06:00 BP 120/71 04/16/19 06:38 Pulse Ox 96 02/24/19 08:10 Results & Data Current Inpatient Medications Current Inpatient Medications: Current Inpatient Medications Acetaminophen (Tylenol) 650 mg PO Q4H PRN PRN Reason: Headache or Minor Fever Stop: 04/24/19 08:39 Al Hydrox/Mg Hydrox/Simethicone (Maalox) 30 ml PO Q4H PRN PRN Reason: GI Upset Stop: 04/24/19 08:39 Benztropine Mesylate (Cogentin) 0.5 mg PO BID PRN PRN Reason: dystonia Stop: 04/24/19 08:39 Bismuth Subsalicylate (Kaopectate) 15 ml PO PRN PRN PRN Reason: Loose Stool Stop: 04/24/19 08:39 Clonidine HCl (Catapres) 0.1 mg PO HS MAG Stop: 04/24/19 21:59 Last Admin: 04/15/19 20:58 Dose: 0.1 mg Documented by: Cyanocobalamin (Vitamin B-12) 500 mcg PO DAILY MAG Stop: 04/24/19 08:59 Last Admin: 04/15/19 08:48 Dose: 500 mcg Documented by: Hydroxyzine HCl (Vistaril) 50 mg PO HSZ PRN PRN Reason: Insomnia Stop: 04/24/19 08:44 Hydroxyzine HCl (Vistaril) 25 mg PO Q4H PRN PRN Reason: Anxiety Stop: 04/24/19 08:44 Magnesium Citrate (Citrate) 148 ml PO BID PRN PRN Reason: constipation Stop: 04/22/19 20:59 Last Admin: 03/23/19 17:19 Dose: 148 ml Documented by: Magnesium Hydroxide (Milk Of Magnesia) 30 ml PO DAILY PRN PRN Reason: Heartburn Stop: 04/24/19 08:44 Magnesium Oxide (Mag-Ox) 400 mg PO DAILY MAG Stop: 04/24/19 08:59 Last Admin: 04/15/19 08:48 Dose: 400 mg Documented by: Miscellaneous (Remove Nicoderm Patch) 1 ea N/A HS MAG Stop: 04/24/19 21:59 Last Admin: 04/15/19 20:58 Dose: 1 ea Documented by: Multivitamins (Multivitamin Tab) 1 tab PO DAILY MAG Stop: 04/24/19 08:59 Last Admin: 04/15/19 08:48 Dose: 1 tab Documented by: Nicotine (Nicoderm Cq) 14 mg TD QAM MAG Stop: 04/24/19 08:59 Last Admin: 04/15/19 08:48 Dose: 14 mg Documented by: Olanzapine (Zyprexa) 10 mg IM HS PRN PRN Reason: Undecided Stop: 04/24/19 08:44 Pyridoxine HCl (Vitamin B-6) 100 mg PO DAILY MAG Stop: 04/24/19 08:59 Last Admin: 04/15/19 08:48 Dose: 100 mg Documented by: Risperidone (Risperdal M) 1 mg PO BID PRN PRN Reason: psychosis Stop: 04/24/19 08:44 Sodium Chloride ([place] Nasal) 1 - 2 sprays NA PRN PRN PRN Reason: Nasal Dryness/Congestion Stop: 04/24/19 08:44 Mental Health & Subst Abuse Tx Therapist Name of Therapist: Sammy Reconditioning Associate Name of Reconditioning Associate: Shruti Lopez Phone Number for Reconditioning Associate: Case Management Appointment Comment: [phone], [place] [address] Post Discharge Appointments Primary Care Physician Name Of Family Doctor: Dr. Lopez Contact Information Discharge Discharge [address]: [address] [place] [id number] CPT Code CPT Code 85685 (1) Schizophrenia Schizophrenia type: paranoid schizophrenia Qualified Code(s): F20.0 - Paranoid schizophrenia (2) Hypertension Hypertension type: essential hypertension Qualified Code(s): I10 - Essential (primary) hypertension
[2019-04-16] MEDS: PYRIDOXINE HCL 50 MG TAB PO SCH (09:15)
[2019-04-16] MEDS: MAGNESIUM OXIDE 400 MG TAB PO SCH (09:15)
[2019-04-16] MEDS: CYANOCOBALAMIN 500 MCG TABLET (VITAMIN B-12) PO SCH (09:15)
[2019-04-16] MEDS: MULTIVITAMIN TAB PO SCH (09:15)
[2019-04-16] MEDS: NICOTINE 14 MG/24 HR PATCH TD SCH (09:18)
[2019-04-16] MEDS: cloNIDine HCL 0.1 MG TAB PO SCH (21:14)
[2019-04-17] MEDS: MULTIVITAMIN TAB PO SCH (09:02)
[2019-04-17] MEDS: PYRIDOXINE HCL 50 MG TAB PO SCH (09:02)
[2019-04-17] MEDS: CYANOCOBALAMIN 500 MCG TABLET (VITAMIN B-12) PO SCH (09:02)
[2019-04-17] MEDS: MAGNESIUM OXIDE 400 MG TAB PO SCH (09:02)
[2019-04-17] MEDS: NICOTINE 14 MG/24 HR PATCH TD SCH (09:03)
--- NOTE | 2019-04-17 15:48 | Psychiatric Progress Note ---
Date of Service April 17, 2019 Impression / Recommendations Impression Pt continues to refuse to speak with prescribers is any productive manner. While he may mumble brief answers to some staff, he has largely given clinicians the silent treatment for weeks now. As it is clearly no more Pt has been accepted to [facility] and we are awaiting bed date, as he was accepted. Med holiday since 04/15/19 Inventory Assets Strengths: Intelligence. Personable, when willing to cooperate. Interests include fashion and design. Needs: Adherence with medication regimens. Willingness to agree to long-term Depo medications because of his history of nonadherence in the community. Willingness to cooperate with treatment, including psychiatric assessments. Risk Factors Assessment Male: Yes : Yes Do You Have Access To A Gun?: No Health Problems: Yes Mental Health Diagnoses: Yes Substance Use Disorders: Yes Protective Factors Assessment Mormonism Beliefs: No : No Responsible for Young Children: No Employed: No Stable Relationships: No Supportive Family: No Good Rapport with Provider: No Absence of Any Risk Factors Above: No Interval History Identifying Information SCOTT ROBERTO is a 73-year-old M who currently lives at a [facility] in [place]. Pt has a history of schizophrenia and is known to our unit from several previous admissions, most recently in 09/2016. Pt and was admitted on 02/24/19 16:40 on a 302 involuntary commitment for exacerbation of schizophrenia and heightened paranoia resulting in belief he needed to hide in a dumpster to seek refuge from impending bombings. Pt was found by [facility] staff and brought to the ED by police. He is on a 304 involuntary commitment as of 03/16/19; pt was accepted at [facility] on 04/02/19, awaiting bed date. Chief Complaint no reply. Review of Systems Sleep Information Total Hours of Sleep: 8 Sleep Comments: pton q-15 minute checks Meal Information Percent Meal Consumed - Breakfast: 100 Percent Meal Consumed - Lunch: 100 Percent Meal Consumed - Dinner: 100 Nutrition Comment: per meal record Subjective Subjective Patient was seen & assessed and interval progress reviewed with nursing and Dr. Dorsey. Patient continues to refuse to meet with providers. Pretends he's sleeping upon my approach. Physical Exam Mental Examination Appearance: Well Groomed Eye Contact: No Eye Contact Motor Behavior: Unremarkable Speech: Nonverbal (selective mutism) Mood: Calm Affect: Calm Vital Signs (Past 24 Hours) Last Vital Signs Temp 36.5 C 04/17/19 06:00 Pulse 64 04/17/19 06:32 Resp 18 04/17/19 06:00 BP 103/59 L 04/17/19 06:32 Pulse Ox 96 02/24/19 08:10 Results & Data Current Inpatient Medications Current Inpatient Medications: Current Inpatient Medications Acetaminophen (Tylenol) 650 mg PO Q4H PRN PRN Reason: Headache or Minor Fever Stop: 04/24/19 08:39 Al Hydrox/Mg Hydrox/Simethicone (Maalox) 30 ml PO Q4H PRN PRN Reason: GI Upset Stop: 04/24/19 08:39 Benztropine Mesylate (Cogentin) 0.5 mg PO BID PRN PRN Reason: dystonia Stop: 04/24/19 08:39 Bismuth Subsalicylate (Kaopectate) 15 ml PO PRN PRN PRN Reason: Loose Stool Stop: 04/24/19 08:39 Clonidine HCl (Catapres) 0.1 mg PO HS MAG Stop: 04/24/19 21:59 Last Admin: 04/16/19 21:14 Dose: 0.1 mg Documented by: Cyanocobalamin (Vitamin B-12) 500 mcg PO DAILY MAG Stop: 04/24/19 08:59 Last Admin: 04/17/19 09:02 Dose: 500 mcg Documented by: Hydroxyzine HCl (Vistaril) 50 mg PO HSZ PRN PRN Reason: Insomnia Stop: 04/24/19 08:44 Hydroxyzine HCl (Vistaril) 25 mg PO Q4H PRN PRN Reason: Anxiety Stop: 04/24/19 08:44 Magnesium Citrate (Citrate) 148 ml PO BID PRN PRN Reason: constipation Stop: 04/22/19 20:59 Last Admin: 03/23/19 17:19 Dose: 148 ml Documented by: Magnesium Hydroxide (Milk Of Magnesia) 30 ml PO DAILY PRN PRN Reason: Heartburn Stop: 04/24/19 08:44 Magnesium Oxide (Mag-Ox) 400 mg PO DAILY MAG Stop: 04/24/19 08:59 Last Admin: 04/17/19 09:02 Dose: 400 mg Documented by: Miscellaneous (Remove Nicoderm Patch) 1 ea N/A HS [facility] Stop: 04/24/19 21:59 Last Admin: 04/16/19 21:20 Dose: Not Given Documented by: Multivitamins (Multivitamin Tab) 1 tab PO DAILY MAG Stop: 04/24/19 08:59 Last Admin: 04/17/19 09:02 Dose: 1 tab Documented by: Nicotine (Nicoderm Cq) 14 mg TD QAM MAG Stop: 04/24/19 08:59 Last Admin: 04/17/19 09:03 Dose: 14 mg Documented by: Olanzapine (Zyprexa) 10 mg IM HS PRN PRN Reason: Undecided Stop: 04/24/19 08:44 Pyridoxine HCl (Vitamin B-6) 100 mg PO DAILY MAG Stop: 04/24/19 08:59 Last Admin: 04/17/19 09:02 Dose: 100 mg Documented by: Risperidone (Risperdal M) 1 mg PO BID PRN PRN Reason: psychosis Stop: 04/24/19 08:44 Sodium Chloride ([place] Nasal) 1 - 2 sprays NA PRN PRN PRN Reason: Nasal Dryness/Congestion Stop: 04/24/19 08:44 Mental Health & Subst Abuse Tx Therapist Name of Therapist: Denies Machine Stripper Name of Machine Stripper: Shruti Lopez Phone Number for Machine Stripper: Case Management Appointment Comment: [phone], [place] [address] Post Discharge Appointments Primary Care Physician Name Of Family Doctor: Dr. Lopez Contact Information Discharge Discharge Address: [address] [place] [address], [place] [address] CPT Code CPT Code 50440
--- NOTE | 2019-04-17 16:18 | Psychiatric Progress Note ---
Date of Service April 17, 2019 Impression / Recommendations Impression Pt continues to refuse to speak with prescribers is any productive manner. While he may mumble brief answers to some staff, he has largely given clinicians the silent treatment for weeks now. As it is clearly no more Pt has been accepted to [facility] and we are awaiting bed date, as he was accepted. Med holiday since 04/15/19 (1) Schizophrenia: 02/25 - Continue home medication regimen - as refusing offerings of his antipsychotic, will likely require olanzapine IM (or alternative agent) over objection, given clear evidence of paranoia and delusional thought process - previously stabilized on this medication - Pt agreeable to taking all other medications, with exception of antipsychotic as mentioned above - Admitted to a locked inpatient behavioral health unit, on q15 minute safety checks - Encourage medication initiation/adjustments as indicated - Encourage participation in group and recreational therapies - Gather collateral information from outpatient providers and shelter staff - Suggest family meeting to involve outpatient supports in safety planning - Reschedule appropriate aftercare appointments 02/26 -Patient indicates willingness to sign a release for the [facility], will get collateral from their staff. -File for 303 involuntary commitment to be held tomorrow. -Recommend medications over objection, with an IM Zyprexa backup for refusal of oral medication. Involve outpatient treatment team to discuss ways to improve stability and compliance; consider long-acting injectable antipsychotic. -Order fasting labs for monitoring on an atypical antipsychotic once patient is more cooperative. 02/27 -The patient was retrained at his involuntary commitment hearing (303) this morning. -He has continuously and consistently refused psychiatric medications to date. However, today, when I explained that that a option that might become necessary in his case is medication over objection, and an intramuscular form, the patient said that he understood and that he would try medications that I prescribe. His initial preference would be olanzapine, but because olanzapine is not available in a long acting depot form, we would first like to try aripiprazole. He indicates that he is taken aripiprazole in the past and has been able to tolerate it, although he does not believe that it has been particularly helpful. -A trial dose of aripiprazole 15 mg by mouth, as a one-time dose, has been ordered and he assessed for efficacy. 02/28 -Appears to be tolerating initiation of Abilify so far. Remains delusional, paranoid. May consider further titration tomorrow -Aricept discontinued at patient's request on 02/27/2019. The medication has not been demonstrated to be efficacious for cognitive impairment associated with long-standing schizophrenia however we should be vigilant for slowing of mentation following discontinuation. 03/01 Patient fixated and irrational regarding access to clothing item as above today. Hospital environment becoming incorporated and delusions. Consider possibility that the aripiprazole is contributing to activation. We will increase to 20 mg tomorrow and also start Risperdal 1 mg p.o. twice daily as as needed. 03/02 - Continue with aripiprazole at 20mg daily, consider need for further titration - if tolerating and effective, eventual plan will be for conversion to Abilify Maintena - Pt has not yet utilized risperidone 03/03 - Increase aripiprazole to 25mg (equivalent to 30mg pill) and change to liquid formulation to decrease risk of cheeking/nonadherence, as patient does not believe he needs medication and had been noncompliant prior to hospitalization. - Fasting glucose and lipid profile ordered for tomorrow for monitoring on an atypical antipsychotic. - Private room due to psychosis, agitation, and inappropriate disrobing/sexual behavior. - Meeting with [facility] and [facility] staff when patient able to tolerate. 03/04 - Continue aripiprazole 25mg liquid (30mg pill equivalent) and continue to observe for improvement in thought process/content - consider conversion to Maintena if effective, versus trial of another agent if improvement remains limited - Fasting labs reviewed - all values WNL - Continue medically necessary private room - Request meeting with [facility] staff, in order to obtain details about patient's proximity to baseline 03/05 -Patient refusing liquid aripiprazole, but agrees to take the pill: Ordered 30 mg daily. -Schedule meeting with his bottle caser, CRR and psych rehab staff. Consider involuntary outpatient commitment at the time of discharge. 03/06 -The patient has improved in that he is more reality based at this point. He continues to harbor fixed, systematized delusions, but is generally able to focus on reality based topics. -Although the patient tells me that he does not feel that aripiprazole has been effective, he is able to accept my opinion in the opinion of the staff that he has improved in response to aripiprazole. -The patient's main objection to aripiprazole oral solution is that he does not like the way it tastes, and within this context, he tells us that he is willing to accept Abilify Maintenaand requests that it be injected into his buttock. Abilify Maintena 300 mg IM ordered, and oral Abilify discontinued. We will resume oral Abilify if the patient subsequently changes his mind and refuses the injection. 03/07 resuming abilfiy oral given his refusal of FARAH form of abilify 03/08 is taking abilify po form but refusing abilify maintena form. advise close monitoring for potential of checking given pt's tendency to not want to take medications. 03/09 -The patient is flatly refusing to take aripiprazole in the form of Abilify Maintena. He is also been hesitant to take oral Abilify, but has been doing so. -The patient's lack of cooperation is thought possibly to be related to an un-expressed desire to not be discharged back to the community. He told me today that he left his meeting with his community providers after a few seconds because "just the side of them made me extremely anxious. My pulse elevated to 140." Later, he told me that he was still anxious about it and his pulse was "still around 130." The patient allowed me to take his pulse, and it was approximately 76. At that point he said, "did I say pulse? I meant systolic blood pressure." And when I pointed out that his systolic blood pressure of 130 is not considered to be a particular concern, he said "I mean diastolic." -Our hope had been that the patient would agree to accept a Depo form of medication. He was refusing Haldol Decanoate because of various side effects. Risperidone constant was ruled out as a first-line Depo medication because of the frequency of administration (the patient tends to get into power struggles over medications) and because he says that he is sensitive to "big needles." Invega would be an option, but currently the patient is being so uncooperative that our concern would be that he would cheek the oral tablets that we would have to give him first. Accordingly, the new strategy will be to discontinue Abilify, and resume olanzapine with olanzapine IM over objection if necessary. We will begin the olanzapine Zydis 20 mg at bedtime 03/10 -The patient took the prescribed dose of olanzapine Zydis 20 mg at bedtime last night. Today, he tells me that it "did not help at all." However, staff report that he has been somewhat more agreeable, more pleasant, and less paranoid today. -As he has with other providers, today he told me that I should have given him olanzapine 5 mg "to start", and I explained that he was already on olanzapine 20 mg when he came into the hospital and we know that he is able to tolerate that dose. He tells me that he did, in fact tolerate the dose and is not aware of any side effects, but, somewhat illogically, insisted that the dose was "too high for a starting dose." 03/11 - Continue current medication regimen at this time - olanzapine 20mg daily - Encourage participation in the milieu and in group programming as tolerated 03/12 -Continue current medication regimen. The patient's condition has not yet improved. -The patient does participate in select groups, but often tends to be disruptive. 03/13 -Today, the patient seems to be somewhat more cooperative and less frankly delusional. It was possible to engage in a mostly reality based conversation for 5 or 10 minutes at a time. Also, although he was unhappy with me when I refused to provide him with a dose of Valium for anxiety, he was able to remain pleasant and calm at this time, did not storm from the room." 03/14 and 03/15 -no change in medication will work on therapeutic alliance given patient is not participating 03/16 -304 involuntary commitment granted. -Patient remains completely uncooperative with treatment, refused his Zyprexa Zydis last evening, but then ultimately took it before he received the injection. I have a high suspicion for cheeking of antipsychotic medication, and we will continue to be vigilant with mouth checks, and work towards a long- acting injectable. 03/17 -Patient has been on Zyprexa 20 mg at bedtime for 1 week, with limited response. He is refusing to discuss other medication options. Per records, he has been prescribed up to 30 mg olanzapine in the past, so will increase his dose to this previously tolerated dose, as it is 1 of the few medications he has been willing to take. Continue IM backup for refusal, and Zyprexa Zydis formulation to decrease risk of cheeking. He is not compliant with mouth checks, but have asked staff to try to observe him for 10 minutes after taking the Zydis to ensure he is not spitting it out before it dissolves. 03/18 -Continue Zyprexa Zydis 30 mg at bedtime with IM backup. Consider switch to a different medication (?oral paliperidone with IM backup) if irritability and agitation continues. He has tried virtually every atypical antipsychotic and reports none of them were effective (although some trials were short due to nonadherence) and has a history of dystonia on haloperidol. Clozapine would be a reasonable choice, but he has been unwilling to even discuss medication options. -Consider some component of cognitive decline which could be contributing to his worsening presentation and will need to be monitored and worked up further o nce he is more psychiatrically stable. -Refer to [facility] in the event that he does not improve and long-term inpatient treatment is needed. 03/19 - Proceed with [facility] referral. 03/20 - Continue current medication regimen; patient refused EKG and CXR yesterday - refused again today - Continue attempts to gather information to make a referral to [facility] 03/23 - Proceed with [facility] referral - patient has refused EKG and CXR for multiple attempts. We will send most recent tests available - Continue current medication regimen at this time 03/24 -Attempted to hold diversion meeting with his outpatient [facility], shelter director, and the [facility]; patient refused to attend or participate in the meeting. 03/25 - 03/26 - Continue treatment plan as above - no change in patient's condition and he remains unwilling to participate meaningfully in treatment - Continue with [facility] referral 03/27 -The patient has been informed that the plan at this point is to transfer him to [facility] for long-term inpatient psychiatric treatment, given his refusal to adhere with treatment and his associated behaviors in the community when not adherent with psychiatric treatment. -The patient continues to refuse mouth checks after given dosages of Zyprexa Zydis, and there is some question regarding whether he is actually ingesting this medication. He also would not cooperate with laboratory testing. -There has been a question regarding the patient's cognitive functions, and prior to admission he had been taking Aricept. When he does cooperate with this, I have not seen evidence of any substantial cognitive impairment. He may have mild cognitive impairment, but does not fully cooperate with formal cognitive assessment. He easily recalls the names of his providers, the names of the medications he is taking, the names of the various infectious agents that he believes are causing some of his psychiatric symptoms, the names of certain chemicals that he believes will rid him of the reference to infections, and is able to discuss current events such as recent news items. His assertion that he wants to return to his apartment in the community seems belied by his steadfast refusal to cooperate with those interventions I would make it possible for him to return, and there is some suspicion that although the patient remains floridly psychotic he may also be intentionally sabotaging discharge. 03/28 - 03/30 -There is been no private branch exchange operator the past 2 weeks, and long-term inpatient treatment at the [facility] is indicated. 03/31 - Continue current medication regimen - Pt briefly verbalized willingness for FARAH, but was not agreeable to medication adjustments to allow for this to be possible - If he should change his mind; recommendation is for trial of Invega orally to establish tolerability, then consideration for Invega Sustenna - unwilling for this today 04/01 - 04/03 - Continue current medication regimen - Continues to refuse FARAH, will continue discussion daily as this is the reported preference of his CRR 04/04 -Questionable positive PPD measuring 13 mm but history of confinement places him at higher risk. Patient refused chest x-ray today but we will reapproach. No active symptoms of infection. Order for sputum culture and smear today for confirmation. 04/05 -PPD now appears negative. Would suggest follow through with sputum smear and culture for confirmation as previously ordered -Continue treatment plan as above 04/06 - PPD reportedly negative, patient unable to follow-up with sputum smear - therefore discontinued - Continue medication regimen as above - unwilling to discuss conversion to an FARAH - Meeting today with representation from [facility] to discuss discharge planning 04/07 - Continue medication regimen as above - remains unwilling to discuss changes - Additional meeting with CRR and CM scheduled for next week - We have been regularly assessing patient's condition and appropriateness to go outside since his 30-day treatment plan review. As patient continues to be unwilling to participate in a meaningful conversation with providers regarding his condition, we continue to be unable to determine if he is appropriate to be taken off the unit - therefore will await ability to discuss the topic in a meaningful way prior to making this determination. Will continue regular evaluation. 04/08 - 04/12 - Continue current medication regimen, as patient unwilling to discuss changes - Attempted again to determine if appropriate to go outside, patient unwilling to participate in conversation despite being told the goal of allowing him to go outside - Meeting with CM and CRR director scheduled for 04/13 at 1030 04/13 - Continue Zyprexa 30mg daily - unwilling to engage in conversation to discuss changes - Remains unwilling to engage in conversation to determine if he is appropriate to go outside, he has been made aware this is a possibility for him - Meeting for attempted diversion resulted in decision to no longer hold patient's [facility] bed, [facility] admission is supported based on little to no improvement since admission and limited willingness to engage in conversations regarding medication adjustments - We have been asked to attempt to get a QuantiFERON-TB Gold Plus test, despite negative PPD reading within acceptable timeframe - pt unwilling to engage in conversation to obtain consent, further indicating why long-term inpatient psychiatric hospitalization is necessary. Will continue to attempt to gain consent for this testing to be completed 04/15 -The patient is slightly more communicative today and that he does answer at least one question which was whether he would be in agreement if we offered him a drug holiday from olanzapine. His response was in the affirmative.. He also said "thank you." -The patient continues to appear suspicious and he clearly is angry at and unwilling to cooperate with staff. He is particularly bumptious with individuals who he sees as not fully trained and fully qualified. -The plan remains transfer to the [facility] for long-term psychiatric care. Our hope remains that we will be able to divert the patient from the [facility], but the patient, as noted above, remains uncommunicative and resistant. Perhaps contributing to the patient's obvious anger and distress is the fact that he has learned this week that his residential program is unwilling to allow him to return and has stopped holding his bed for other individuals. 04/16 - Continue current treatment plan, which includes holiday from olanzapine as a rapport building attempt, and due to concerns that he is more irritable and resistant to treatment - which is obviously not beneficial for his overall condition. - Attempted to communicate with the patient today via written/printed text - will add addendum to this note if patient was willing to complete the sheet and respond to questions 04/17 - (2) Substance abuse: 02/25 - Pt has reported history of substance abuse, and recommendation has consistently been for avoidance of substances with significant abuse potential. - PDMP queried - most recent prescriptions below - lorazepam 0.5mg #60 tabs for 30 day supply - Dr. Alves - filled 02/12/2019 - alprazolam 0.5mg #90 tabs for 30 day supply - Dr. Lopez - filled 01/16/2019 - temazepam 30mg #30 caps for 30 day supply - Dr. Lopez - filled 01/16/2019 - Will continue lorazepam 0.5mg BID prn on admission, as only medication that is seemingly active - toxicology screen is negative for benzodiazepines, which questions if he has been taking the medication appropriately - Ideally will taper and discontinue the lorazepam, as recommendation remains that substances with abuse potential be avoided 02/26 -The patient's outpatient providers, during a meeting this morning, report that the patient tends to successfully convince physicians to prescribe benzodiazepines for him and that, in the past, he has abused him to the degree that he is practically obtunded. 02/27 -A repeat check of the PDMP reveals that the patient is consistently being prescribed lorazepam 0.5 mg twice daily (number 60/month) by a Dr. rBent Alves. He is also being prescribed alprazolam 0.[address] mg [address] Jeff Lopez, with the most recent previous prescription of alprazolam being on 01/16/[address] Lopez also prescribed temazepam 30 mg capsules #30 on 01/16/2019. According to his residential providers, no temazepam capsules were found among the patient's belongings. His most recent prescription for lorazepam 0.5 mg tablets was filled on 02/12/2019. 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 In the past, he reportedly has used clonazepam and temazepam. -I advised the patient that because of his history of misuse of benzodiazepines we would not be prescribing benzodiazepines during his hospital stay. An as needed order for lorazepam has not been used during hospital stay, and I discontinued the order today. 03/02 - Will need to coordinate care with his PCP and outpatient psychiatrist prior to discharge regarding the above. 03/04 - Charge nurse spoke with the above offices regarding concern for continued benzodiazepine prescriptions - Records will be faxed to their offices on discharge, as all benzodiazepines were discontinued during this hospitalization 03/06 -The patient did not request benzodiazepines and did not complain of anxiety today. I suggested to him that perhaps Abilify is also helping with anxiety in his case, and he responded by saying "perhaps." 03/09 -Today, the patient is insisting that what he needs is "benzodiazepines," and explains that the reason he "needs" benzodiazepines is that he has "benzodiazepine receptors," and that he is the only medications that work. He is unable to process warnings about the risks of benzodiazepines in the elderly, including increased risk of falls and mortality. Clearly, the patient is seeking benzodiazepines and has no insight into the associated risks. He also insists that he has never had trouble with benzodiazepines in the past, although there is well-documented of this. 03/10 -Today, the patient repeated his insistence that he needs benzodiazepines and that benzodiazepines are the only medications that work because he has "benzodiazepine receptors." After being told that everyone has central nervous system receptors to which benzodiazepines may attach, he replied, "That may be, but some of people need to have benzodiazepines forearm benzodiazepine receptors. 03/12 -Continues to request Benzodiazepines. 03/13 -Requests Valium for his "benzodiazepines receptors." 03/27 -Refuses to cooperate with assessment today, but has recently told staff that he needs "either Valium or Ativan." -The patient apparently has no working insight into his history of abuse of prescription medications (benzodiazepines). 04/15 -The patient has not reference to request for benzodiazepines recently. However, the context is that he has not communicated much of anything directly, a other than the occasional need for self-care items. (3) Hypertension: 02/25 - Continue home dose of clonidine 0.1mg qHS 03/01 Watch mildly elevated blood pressures as patient has been refusing clonidine 03/03 - BP normal past two days, and low today 03/10 -The patient's blood pressure today was 136/73. His pulse was 71 03/14 - elevated BP it is not urgent but will need monitored. 03/15 - BP WNL 03/26 - BP continues to be WNL 04/02 - BP remains within normal limits; continue daily vitals per standard admission order set - Will consider acute phase of this problem resolved at this time Inventory Assets Strengths: Intelligence. Personable, when willing to cooperate. Interests include fashion and design. Needs: Adherence with medication regimens. Willingness to agree to long-term Depo medications because of his history of nonadherence in the community. Willingness to cooperate with treatment, including psychiatric assessments. Risk Factors Assessment Male: Yes : Yes Do You Have Access To A Gun?: No Health Problems: Yes Mental Health Diagnoses: Yes Substance Use Disorders: Yes Protective Factors Assessment Buddhism Beliefs: No : No Responsible for Young Children: No Employed: No Stable Relationships: No Supportive Family: No Good Rapport with Provider: No Absence of Any Risk Factors Above: No Interval History Identifying Information SCOTT ROBERTO is a 73-year-old M who currently lives at a [facility] in [place]. Pt has a history of schizophrenia and is known to our unit from several previous admissions, most recently in 09/2016. Pt and was admitted on 02/24/19 16:40 on a 302 involuntary commitment for exacerbation of schizophrenia and heightened paranoia resulting in belief he needed to hide in a dumpster to seek refuge from impending bombings. Pt was found by [facility] staff and brought to the ED by police. He is on a 304 involuntary commitment as of 03/16/19; pt was accepted at [facility] on 04/02/19, awaiting bed date. Chief Complaint "I'd rather not talk." Review of Systems Sleep Information Total Hours of Sleep: 8 Sleep Comments: pton q-15 minute checks Meal Information Percent Meal Consumed - Breakfast: 100 Percent Meal Consumed - Lunch: 100 Percent Meal Consumed - Dinner: 100 Nutrition Comment: per meal record Subjective Subjective Patient was seen & assessed and interval progress reviewed with treatment team. I attempted again to meet with the patient and, as has been the case for the past several weeks, he declined. However, today he was somewhat more polite and less abrupt about declining and he said "no thank you." He is also not been talking to staff, but has begun attending groups again and, although his participation has not been appropriate, and although he is continuing to demonstrate psychotic thinking in the groups (for example by telling everyone in the group that they should have their Marnie rights read to them) the patient has become somewhat more active in the milieu. He is watching television more frequently, and has also been walking, alone, in the hallways. We are concerned because the patient's affect at times appears to be more flat than usual, although he continues to have angry outbursts, especially when approached by staff. Physical Exam Psychiatric Orientation: alert Declines to answer questions regarding orientation, but seems to be well aware of where he is. He recalls the locations of various things on the unit and accesses them without difficulty. Apperance: appropriately dressed, appropriately groomed and appeared stated age Eye Contact: + poor eye contact Motor Behavior: no abnormal motor movements The patient is largely nonverbal. When he does speak, he says few words. For example, and a recent group he told of the group, and a matter of a few words, that they needed to have their Marnie rights read to them, and then did not speak otherwise. Today, when I approached him, the only thing he said was "no thank you," and then walked away. Affect: + flat affect The patient does not answer questions regarding mood. The patient's thought processes are not able to be assessed at present because the patient is refusing to speak to providers. Thought Content: + delusions Although the patient generally is not speaking to nursing staff or to medication prescribing providers, he has as recently yesterday expressed the paranoid belief that he and all of his peers are somehow on trial or are incarcerated and are entitled to "Marnie rights." He seems fixated on this concept. The patient is not engaged in any self-injurious behaviors. He is not neglecting self-care and is eating appropriately. He does not answer questions regarding thought content, including questions regarding thoughts of self-harm. The patient is not engaged in any self-injurious behaviors. He is not neglecting self-care and is eating appropriately. He does not answer questions regarding thought content, including questions regarding thoughts of violence directed towards others. Hallucinations: + auditory hallucinations (The patient at times does appear to be responding to internal stimuli. We will see him suddenly turn his head and look towards an empty chair or a unoccupied corner as if he is hearing something coming from that empty chair or unoccupied corner.) Estimated Intelligence: + above average estimated intelligence Insight: + severely impaired insight Judgement: + severely impaired judgement Vital Signs (Past 24 Hours) Last Vital Signs Temp 36.5 C 04/17/19 06:00 Pulse 64 04/17/19 06:32 Resp 18 04/17/19 06:00 BP 103/59 L 04/17/19 06:32 Pulse Ox 96 02/24/19 08:10 Results & Data Current Inpatient Medications Current Inpatient Medications: Current Inpatient Medications Acetaminophen (Tylenol) 650 mg PO Q4H PRN PRN Reason: Headache or Minor Fever Stop: 04/24/19 08:39 Al Hydrox/Mg Hydrox/Simethicone (Maalox) 30 ml PO Q4H PRN PRN Reason: GI Upset Stop: 04/24/19 08:39 Benztropine Mesylate (Cogentin) 0.5 mg PO BID PRN PRN Reason: dystonia Stop: 04/24/19 08:39 Bismuth Subsalicylate (Kaopectate) 15 ml PO PRN PRN PRN Reason: Loose Stool Stop: 04/24/19 08:39 Clonidine HCl (Catapres) 0.1 mg PO HS MAG Stop: 04/24/19 21:59 Last Admin: 04/16/19 21:14 Dose: 0.1 mg Documented by: Cyanocobalamin (Vitamin B-12) 500 mcg PO DAILY MAG Stop: 04/24/19 08:59 Last Admin: 04/17/19 09:02 Dose: 500 mcg Documented by: Hydroxyzine HCl (Vistaril) 50 mg PO HSZ PRN PRN Reason: Insomnia Stop: 04/24/19 08:44 Hydroxyzine HCl (Vistaril) 25 mg PO Q4H PRN PRN Reason: Anxiety Stop: 04/24/19 08:44 Magnesium Citrate (Citrate) 148 ml PO BID PRN PRN Reason: constipation Stop: 04/22/19 20:59 Last Admin: 03/23/19 17:19 Dose: 148 ml Documented by: Magnesium Hydroxide (Milk Of Magnesia) 30 ml PO DAILY PRN PRN Reason: Heartburn Stop: 04/24/19 08:44 Magnesium Oxide (Mag-Ox) 400 mg PO DAILY MAG Stop: 04/24/19 08:59 Last Admin: 04/17/19 09:02 Dose: 400 mg Documented by: Miscellaneous (Remove Nicoderm Patch) 1 ea N/A HS MAG Stop: 04/24/19 21:59 Last Admin: 04/16/19 21:20 Dose: Not Given Documented by: Multivitamins (Multivitamin Tab) 1 tab PO DAILY MAG Stop: 04/24/19 08:59 Last Admin: 04/17/19 09:02 Dose: 1 tab Documented by: Nicotine (Nicoderm Cq) 14 mg TD QAM MAG Stop: 04/24/19 08:59 Last Admin: 04/17/19 09:03 Dose: 14 mg Documented by: Olanzapine (Zyprexa) 10 mg IM HS PRN PRN Reason: Undecided Stop: 04/24/19 08:44 Pyridoxine HCl (Vitamin B-6) 100 mg PO DAILY MAG Stop: 04/24/19 08:59 Last Admin: 04/17/19 09:02 Dose: 100 mg Documented by: Risperidone (Risperdal M) 1 mg PO BID PRN PRN Reason: psychosis Stop: 04/24/19 08:44 Sodium Chloride (Iron Nasal) 1 - 2 sprays NA PRN PRN PRN Reason: Nasal Dryness/Congestion Stop: 04/24/19 08:44 Mental Health & Subst Abuse Tx Therapist Name of Therapist: Sammy Rouge Presser Name of Rouge Presser: Shruti Lopez Phone Number for Rouge Presser: Case Management Appointment Comment: [phone], [place] [address] Post Discharge Appointments Primary Care Physician Name Of Family Doctor: Dr. Lopez Contact Information Discharge Discharge Address: [address] [place] [id number] CPT Code CPT Code 00996 [id number] (1) Schizophrenia Schizophrenia type: paranoid schizophrenia Qualified Code(s): F20.0 - Paranoid schizophrenia (2) Hypertension Hypertension type: essential hypertension Qualified Code(s): I10 - Essential (primary) hypertension
[2019-04-17] MEDS: cloNIDine HCL 0.1 MG TAB PO SCH (20:27)
[2019-04-18] MEDS: MULTIVITAMIN TAB PO SCH (09:09)
[2019-04-18] MEDS: PYRIDOXINE HCL 50 MG TAB PO SCH (09:09)
[2019-04-18] MEDS: CYANOCOBALAMIN 500 MCG TABLET (VITAMIN B-12) PO SCH (09:09)
[2019-04-18] MEDS: MAGNESIUM OXIDE 400 MG TAB PO SCH (09:09)
[2019-04-18] MEDS: NICOTINE 14 MG/24 HR PATCH TD SCH (09:13)
--- NOTE | 2019-04-18 12:48 | Psychiatric Progress Note ---
Date of Service April 18, 2019 Impression / Recommendations Impression remains cooperative, plan--no changes, awaiting [facility]. Risk Factors Assessment Male: Yes : Yes Do You Have Access To A Gun?: No Health Problems: Yes Mental Health Diagnoses: Yes Substance Use Disorders: Yes Protective Factors Assessment Anglican Beliefs: No : No Responsible for Young Children: No Employed: No Stable Relationships: No Supportive Family: No Good Rapport with Provider: No Absence of Any Risk Factors Above: No Interval History Chief Complaint shakes head that not going to talk. Review of Systems Sleep Information Total Hours of Sleep: 7.5 Sleep Comments: pton q-15 minute checks Meal Information Percent Meal Consumed - Breakfast: 100 Percent Meal Consumed - Lunch: 100 Percent Meal Consumed - Dinner: 100 Nutrition Comment: per meal record Subjective Subjective Patient was seen & assessed and interval progress reviewed with nursing and social work. 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 Physical Exam Mental Examination patient unwilling to participate, affect is flat, gait steady. Vital Signs (Past 24 Hours) Last Vital Signs Temp 36.7 C 04/18/19 06:48 Pulse 70 04/18/19 06:49 Resp 18 04/18/19 06:48 BP 108/68 04/18/19 06:49 Pulse Ox 96 02/24/19 08:10 Results & Data Current Inpatient Medications Current Inpatient Medications: Current Inpatient Medications Acetaminophen (Tylenol) 650 mg PO Q4H PRN PRN Reason: Headache or Minor Fever Stop: 04/24/19 08:39 Al Hydrox/Mg Hydrox/Simethicone (Maalox) 30 ml PO Q4H PRN PRN Reason: GI Upset Stop: 04/24/19 08:39 Benztropine Mesylate (Cogentin) 0.5 mg PO BID PRN PRN Reason: dystonia Stop: 04/24/19 08:39 Bismuth Subsalicylate (Kaopectate) 15 ml PO PRN PRN PRN Reason: Loose Stool Stop: 04/24/19 08:39 Clonidine HCl (Catapres) 0.1 mg PO HS MAG Stop: 04/24/19 21:59 Last Admin: 04/17/19 20:27 Dose: 0.1 mg Documented by: Cyanocobalamin (Vitamin B-12) 500 mcg PO DAILY MAG Stop: 04/24/19 08:59 Last Admin: 04/18/19 09:09 Dose: 500 mcg Documented by: Hydroxyzine HCl (Vistaril) 50 mg PO HSZ PRN PRN Reason: Insomnia Stop: 04/24/19 08:44 Hydroxyzine HCl (Vistaril) 25 mg PO Q4H PRN PRN Reason: Anxiety Stop: 04/24/19 08:44 Magnesium Citrate (Citrate) 148 ml PO BID PRN PRN Reason: constipation Stop: 04/22/19 20:59 Last Admin: 03/23/19 17:19 Dose: 148 ml Documented by: Magnesium Hydroxide (Milk Of Magnesia) 30 ml PO DAILY PRN PRN Reason: Heartburn Stop: 04/24/19 08:44 Magnesium Oxide (Mag-Ox) 400 mg PO DAILY MAG Stop: 04/24/19 08:59 Last Admin: 04/18/19 09:09 Dose: 400 mg Documented by: Miscellaneous (Remove Nicoderm Patch) 1 ea N/A HS MAG Stop: 04/24/19 21:59 Last Admin: 04/17/19 20:28 Dose: 1 ea Documented by: Multivitamins (Multivitamin Tab) 1 tab PO DAILY MAG Stop: 04/24/19 08:59 Last Admin: 04/18/19 09:09 Dose: 1 tab Documented by: Nicotine (Nicoderm Cq) 14 mg TD QAM [facility] Stop: 04/24/19 08:59 Last Admin: 04/18/19 09:13 Dose: 14 mg Documented by: Olanzapine (Zyprexa) 10 mg IM HS PRN PRN Reason: Undecided Stop: 04/24/19 08:44 Pyridoxine HCl (Vitamin B-6) 100 mg PO DAILY MAG Stop: 04/24/19 08:59 Last Admin: 04/18/19 09:09 Dose: 100 mg Documented by: Risperidone (Risperdal M) 1 mg PO BID PRN PRN Reason: psychosis Stop: 04/24/19 08:44 Sodium Chloride ([place] Nasal) 1 - 2 sprays NA PRN PRN PRN Reason: Nasal Dryness/Congestion Stop: 04/24/19 08:44 Mental Health & Subst Abuse Tx Therapist Name of Therapist: Denies Dietetic Tech Name of Dietetic Tech: Shruti Lopez Phone Number for Dietetic Tech: Case Management Appointment Comment: [phone], [place] [address] Post Discharge Appointments Primary Care Physician Name Of Family Doctor: Dr. Lopez Contact Information Discharge Discharge Address: [address] [place] [address], [place] [address] CPT Code CPT Code [id number]
[2019-04-18] MEDS: cloNIDine HCL 0.1 MG TAB PO SCH (20:42)
[2019-04-19] MEDS: MAGNESIUM OXIDE 400 MG TAB PO SCH (08:58)
[2019-04-19] MEDS: MULTIVITAMIN TAB PO SCH (08:58)
[2019-04-19] MEDS: CYANOCOBALAMIN 500 MCG TABLET (VITAMIN B-12) PO SCH (08:59)
[2019-04-19] MEDS: PYRIDOXINE HCL 50 MG TAB PO SCH (08:59)
[2019-04-19] MEDS: NICOTINE 14 MG/24 HR PATCH TD SCH (09:03)
--- NOTE | 2019-04-19 11:30 | Psychiatric Progress Note ---
Date of Service April 19, 2019 Impression / Recommendations Impression remains cooperative, plan--no changes, awaiting [facility]. Risk Factors Assessment Male: Yes : Yes Do You Have Access To A Gun?: No Health Problems: Yes Mental Health Diagnoses: Yes Substance Use Disorders: Yes Protective Factors Assessment Jewish Beliefs: No : No Responsible for Young Children: No Employed: No Stable Relationships: No Supportive Family: No Good Rapport with Provider: No Absence of Any Risk Factors Above: No Interval History Chief Complaint refuses to acknowledge MD, even when walking directly into me Review of Systems Sleep Information Total Hours of Sleep: 6.25 Sleep Comments: pton q-15 minute checks Meal Information Percent Meal Consumed - Breakfast: 100 Percent Meal Consumed - Lunch: 100 Percent Meal Consumed - Dinner: 100 Nutrition Comment: per meal record Subjective Subjective Patient was seen & assessed and interval progress reviewed with nursing and social work, no changes overnight Physical Exam Mental Examination on MSE patient's affect is blunted but calm, no gait abnormality. Speech is selectively mute. Does not appear to be responding to internal stimuli. Vital Signs (Past 24 Hours) Last Vital Signs Temp 36.6 C 04/19/19 06:38 Pulse 73 04/19/19 06:38 Resp 18 04/19/19 06:38 BP 104/65 04/19/19 06:38 Pulse Ox 96 02/24/19 08:10 Results & Data Current Inpatient Medications Current Inpatient Medications: Current Inpatient Medications Acetaminophen (Tylenol) 650 mg PO Q4H PRN PRN Reason: Headache or Minor Fever Stop: 04/24/19 08:39 Al Hydrox/Mg Hydrox/Simethicone (Maalox) 30 ml PO Q4H PRN PRN Reason: GI Upset Stop: 04/24/19 08:39 Benztropine Mesylate (Cogentin) 0.5 mg PO BID PRN PRN Reason: dystonia Stop: 04/24/19 08:39 Bismuth Subsalicylate (Kaopectate) 15 ml PO PRN PRN PRN Reason: Loose Stool Stop: 04/24/19 08:39 Clonidine HCl (Catapres) 0.1 mg PO HS MAG Stop: 04/24/19 21:59 Last Admin: 04/18/19 20:42 Dose: 0.1 mg Documented by: Cyanocobalamin (Vitamin B-12) 500 mcg PO DAILY MAG Stop: 04/24/19 08:59 Last Admin: 04/19/19 08:59 Dose: 500 mcg Documented by: Hydroxyzine HCl (Vistaril) 50 mg PO HSZ PRN PRN Reason: Insomnia Stop: 04/24/19 08:44 Hydroxyzine HCl (Vistaril) 25 mg PO Q4H PRN PRN Reason: Anxiety Stop: 04/24/19 08:44 Magnesium Citrate (Citrate) 148 ml PO BID PRN PRN Reason: constipation Stop: 04/22/19 20:59 Last Admin: 03/23/19 17:19 Dose: 148 ml Documented by: Magnesium Hydroxide (Milk Of Magnesia) 30 ml PO DAILY PRN PRN Reason: Heartburn Stop: 04/24/19 08:44 Magnesium Oxide (Mag-Ox) 400 mg PO DAILY [facility] Stop: 04/24/19 08:59 Last Admin: 04/19/19 08:58 Dose: 400 mg Documented by: Miscellaneous (Remove Nicoderm Patch) 1 ea N/A HS [facility] Stop: 04/24/19 21:59 Last Admin: 04/18/19 20:42 Dose: 1 ea Documented by: Multivitamins (Multivitamin Tab) 1 tab PO DAILY MAG Stop: 04/24/19 08:59 Last Admin: 04/19/19 08:58 Dose: 1 tab Documented by: Nicotine (Nicoderm Cq) 14 mg TD QAM [facility] Stop: 04/24/19 08:59 Last Admin: 04/19/19 09:03 Dose: 14 mg Documented by: Olanzapine (Zyprexa) 10 mg IM HS PRN PRN Reason: Undecided Stop: 04/24/19 08:44 Pyridoxine HCl (Vitamin B-6) 100 mg PO DAILY MAG Stop: 04/24/19 08:59 Last Admin: 04/19/19 08:59 Dose: 100 mg Documented by: Risperidone (Risperdal M) 1 mg PO BID PRN PRN Reason: psychosis Stop: 04/24/19 08:44 Sodium Chloride ([place] Nasal) 1 - 2 sprays NA PRN PRN PRN Reason: Nasal Dryness/Congestion Stop: 04/24/19 08:44 Mental Health & Subst Abuse Tx Therapist Name of Therapist: Denies Cutter Inspector Name of Cutter Inspector: Shruti Resendez [facility] Phone Number for Cutter Inspector: Case Management Appointment Comment: [phone], [place] [address] Post Discharge Appointments Primary Care Physician Name Of Family Doctor: Dr. Lopez Contact Information Discharge Discharge Address: [address] [place] [address], [place] [address] CPT Code CPT Code 14240
[2019-04-19] MEDS: cloNIDine HCL 0.1 MG TAB PO SCH (20:34)
[2019-04-20] MEDS: MULTIVITAMIN TAB PO SCH (08:05)
[2019-04-20] MEDS: NICOTINE 14 MG/24 HR PATCH TD SCH (08:05)
[2019-04-20] MEDS: PYRIDOXINE HCL 50 MG TAB PO SCH (08:05)
[2019-04-20] MEDS: CYANOCOBALAMIN 500 MCG TABLET (VITAMIN B-12) PO SCH (08:05)
[2019-04-20] MEDS: MAGNESIUM OXIDE 400 MG TAB PO SCH (08:05)
--- NOTE | 2019-04-20 10:09 | Psychiatric Progress Note ---
Date of Service April 20, 2019 Impression / Recommendations Impression remains cooperative, plan--no changes, awaiting [facility]. Risk Factors Assessment Male: Yes : Yes Do You Have Access To A Gun?: No Health Problems: Yes Mental Health Diagnoses: Yes Substance Use Disorders: Yes Protective Factors Assessment Baptist Beliefs: No : No Responsible for Young Children: No Employed: No Stable Relationships: No Supportive Family: No Good Rapport with Provider: No Absence of Any Risk Factors Above: No Interval History Chief Complaint refusing MD meeting Review of Systems Sleep Information Total Hours of Sleep: 6.25 Sleep Comments: out to the kitchen area for a snack of cereals and juice at 0150 then again at 0345 for a drink. Meal Information Percent Meal Consumed - Breakfast: 100 Percent Meal Consumed - Lunch: 100 Percent Meal Consumed - Dinner: 100 Nutrition Comment: per meal record Subjective Subjective Patient was seen & assessed and interval progress reviewed with nursing. Attended group last evening. Took interest in a male peer with similar symptoms, wondered if he has a chip in his head as well. Physical Exam Mental Examination alert, steady gait, thoughts concrete in interactions with staff. Mood calm. Affect blunted, ongoing delusions, does not appear to be responding to internal stimuli. Vital Signs (Past 24 Hours) Last Vital Signs Temp 36.6 C 04/20/19 06:33 Pulse 76 04/20/19 06:34 Resp 18 04/20/19 06:33 BP 110/70 04/20/19 06:34 Pulse Ox 96 02/24/19 08:10 Results & Data Current Inpatient Medications Current Inpatient Medications: Current Inpatient Medications Acetaminophen (Tylenol) 650 mg PO Q4H PRN PRN Reason: Headache or Minor Fever Stop: 04/24/19 08:39 Al Hydrox/Mg Hydrox/Simethicone (Maalox) 30 ml PO Q4H PRN PRN Reason: GI Upset Stop: 04/24/19 08:39 Benztropine Mesylate (Cogentin) 0.5 mg PO BID PRN PRN Reason: dystonia Stop: 04/24/19 08:39 Bismuth Subsalicylate (Kaopectate) 15 ml PO PRN PRN PRN Reason: Loose Stool Stop: 04/24/19 08:39 Clonidine HCl (Catapres) 0.1 mg PO HS MAG Stop: 04/24/19 21:59 Last Admin: 04/19/19 20:34 Dose: 0.1 mg Documented by: Cyanocobalamin (Vitamin B-12) 500 mcg PO DAILY MAG Stop: 04/24/19 08:59 Last Admin: 04/20/19 08:05 Dose: 500 mcg Documented by: Hydroxyzine HCl (Vistaril) 50 mg PO HSZ PRN PRN Reason: Insomnia Stop: 04/24/19 08:44 Hydroxyzine HCl (Vistaril) 25 mg PO Q4H PRN PRN Reason: Anxiety Stop: 04/24/19 08:44 Magnesium Citrate (Citrate) 148 ml PO BID PRN PRN Reason: constipation Stop: 04/22/19 20:59 Last Admin: 03/23/19 17:19 Dose: 148 ml Documented by: Magnesium Hydroxide (Milk Of Magnesia) 30 ml PO DAILY PRN PRN Reason: Heartburn Stop: 04/24/19 08:44 Magnesium Oxide (Mag-Ox) 400 mg PO DAILY MAG Stop: 04/24/19 08:59 Last Admin: 04/20/19 08:05 Dose: 400 mg Documented by: Miscellaneous (Remove Nicoderm Patch) 1 ea N/A HS MAG Stop: 04/24/19 21:59 Last Admin: 04/19/19 20:35 Dose: 1 ea Documented by: Multivitamins (Multivitamin Tab) 1 tab PO DAILY MAG Stop: 04/24/19 08:59 Last Admin: 04/20/19 08:05 Dose: 1 tab Documented by: Nicotine (Nicoderm Cq) 14 mg TD QAM MAG Stop: 04/24/19 08:59 Last Admin: 04/20/19 08:05 Dose: 14 mg Documented by: Olanzapine (Zyprexa) 10 mg IM HS PRN PRN Reason: Undecided Stop: 04/24/19 08:44 Pyridoxine HCl (Vitamin B-6) 100 mg PO DAILY MAG Stop: 04/24/19 08:59 Last Admin: 04/20/19 08:05 Dose: 100 mg Documented by: Risperidone (Risperdal M) 1 mg PO BID PRN PRN Reason: psychosis Stop: 04/24/19 08:44 Sodium Chloride ([place] Nasal) 1 - 2 sprays NA PRN PRN PRN Reason: Nasal Dryness/Congestion Stop: 04/24/19 08:44 Mental Health & Subst Abuse Tx Therapist Name of Therapist: Denies Corporate Claims Examiner Name of Corporate Claims Examiner: Shruti Lopez Phone Number for Corporate Claims Examiner: Case Management Appointment Comment: [phone], [place] [address] Post Discharge Appointments Primary Care Physician Name Of Family Doctor: Dr. Lopez Contact Information Discharge Discharge Address: [address] [place] [address], [place] [address] CPT Code CPT Code 35937
[2019-04-20] MEDS: cloNIDine HCL 0.1 MG TAB PO SCH (21:03)
[2019-04-21] MEDS: MAGNESIUM OXIDE 400 MG TAB PO SCH (08:36)
[2019-04-21] MEDS: MULTIVITAMIN TAB PO SCH (08:36)
[2019-04-21] MEDS: PYRIDOXINE HCL 50 MG TAB PO SCH (08:36)
[2019-04-21] MEDS: CYANOCOBALAMIN 500 MCG TABLET (VITAMIN B-12) PO SCH (08:36)
[2019-04-21] MEDS: NICOTINE 14 MG/24 HR PATCH TD SCH (08:37)
--- NOTE | 2019-04-21 08:39 | Psychiatric Progress Note ---
Date of Service April 21, 2019 Impression / Recommendations Impression Patient remains uncooperative, we will not speak to clinicians, nor take medication. His senior care bed was relinquished due to ongoing psychotic symptoms and unwillingness to engage in treatment, and although he has been accepted at the [facility], we still do not have a bed date. (1) Schizophrenia: the interview.02/25 - Continue home medication regimen - as refusing offerings of his antipsychotic, will likely require olanzapine IM (or alternative agent) over objection, given clear evidence of paranoia and delusional thought process - previously stabilized on this medication - Pt agreeable to taking all other medications, with exception of antipsychotic as mentioned above - Admitted to a locked inpatient behavioral health unit, on q15 minute safety checks - Encourage medication initiation/adjustments as indicated - Encourage participation in group and recreational therapies - Gather collateral information from outpatient providers and senior care staff - Suggest family meeting to involve outpatient supports in safety planning - Reschedule appropriate aftercare appointments 02/26 -Patient indicates willingness to sign a release for the [facility] senior [facility], will get collateral from their staff. -File for 303 involuntary commitment to be held tomorrow. -Recommend medications over objection, with an IM Zyprexa backup for refusal of oral medication. Involve outpatient treatment team to discuss ways to improve stability and compliance; consider long-acting injectable antipsychotic. -Order fasting labs for monitoring on an atypical antipsychotic once patient is more cooperative. 02/27 -The patient was retrained at his involuntary commitment hearing (303) this morning. -He has continuously and consistently refused psychiatric medications to date. However, today, when I explained that that a option that might become necessary in his case is medication over objection, and an intramuscular form, the patient said that he understood and that he would try medications that I prescribe. His initial preference would be olanzapine, but because olanzapine is not available in a long acting depot form, we would first like to try aripiprazole. He indicates that he is taken aripiprazole in the past and has been able to tolerate it, although he does not believe that it has been particularly helpful. -A trial dose of aripiprazole 15 mg by mouth, as a one-time dose, has been ordered and he assessed for efficacy. 02/28 -Appears to be tolerating initiation of Abilify so far. Remains delusional, paranoid. May consider further titration tomorrow -Aricept discontinued at patient's request on 02/27/2019. The medication has not been demonstrated to be efficacious for cognitive impairment associated with long-standing schizophrenia however we should be vigilant for slowing of mentation following discontinuation. 03/01 Patient fixated and irrational regarding access to clothing item as above today. Hospital environment becoming incorporated and delusions. Consider possibility that the aripiprazole is contributing to activation. We will increase to 20 mg tomorrow and also start Risperdal 1 mg p.o. twice daily as as needed. 03/02 - Continue with aripiprazole at 20mg daily, consider need for further titration - if tolerating and effective, eventual plan will be for conversion to Abilify Maintena - Pt has not yet utilized risperidone 03/03 - Increase aripiprazole to 25mg (equivalent to 30mg pill) and change to liquid formulation to decrease risk of cheeking/nonadherence, as patient does not believe he needs medication and had been noncompliant prior to hospitalization. - Fasting glucose and lipid profile ordered for tomorrow for monitoring on an atypical antipsychotic. - Private room due to psychosis, agitation, and inappropriate disrobing/sexual behavior. - Meeting with [facility] and [facility] staff when patient able to tolerate. 03/04 - Continue aripiprazole 25mg liquid (30mg pill equivalent) and continue to observe for improvement in thought process/content - consider conversion to Maintena if effective, versus trial of another agent if improvement remains limited - Fasting labs reviewed - all values WNL - Continue medically necessary private room - Request meeting with [facility] staff, in order to obtain details about patient's proximity to baseline 03/05 -Patient refusing liquid aripiprazole, but agrees to take the pill: Ordered 30 mg daily. -Schedule meeting with his case worker, [facility] and psych rehab staff. Consider involuntary outpatient commitment at the time of discharge. 03/06 -The patient has improved in that he is more reality based at this point. He continues to harbor fixed, systematized delusions, but is generally able to focus on reality based topics. -Although the patient tells me that he does not feel that aripiprazole has been effective, he is able to accept my opinion in the opinion of the staff that he has improved in response to aripiprazole. -The patient's main objection to aripiprazole oral solution is that he does not like the way it tastes, and within this context, he tells us that he is willing to accept Abilify Maintenaand requests that it be injected into his buttock. Abilify Maintena 300 mg IM ordered, and oral Abilify discontinued. We will resume oral Abilify if the patient subsequently changes his mind and refuses the injection. 03/07 resuming abilfiy oral given his refusal of FARAH form of abilify 03/08 is taking abilify po form but refusing abilify maintena form. advise close monitoring for potential of checking given pt's tendency to not want to take medications. 03/09 -The patient is flatly refusing to take aripiprazole in the form of Abilify Maintena. He is also been hesitant to take oral Abilify, but has been doing so. -The patient's lack of cooperation is thought possibly to be related to an un-expressed desire to not be discharged back to the community. He told me today that he left his meeting with his community providers after a few seconds because "just the side of them made me extremely anxious. My pulse elevated to 140." Later, he told me that he was still anxious about it and his pulse was "still around 130." The patient allowed me to take his pulse, and it was approximately 76. At that point he said, "did I say pulse? I meant systolic blood pressure." And when I pointed out that his systolic blood pressure of 130 is not considered to be a particular concern, he said "I mean diastolic." -Our hope had been that the patient would agree to accept a Depo form of medication. He was refusing Haldol Decanoate because of various side effects. Risperidone constant was ruled out as a first-line Depo medication because of the frequency of administration (the patient tends to get into power struggles over medications) and because he says that he is sensitive to "big needles." Invega would be an option, but currently the patient is being so uncooperative that our concern would be that he would cheek the oral tablets that we would have to give him first. Accordingly, the new strategy will be to discontinue Abilify, and resume olanzapine with olanzapine IM over objection if necessary. We will begin the olanzapine Zydis 20 mg at bedtime 03/10 -The patient took the prescribed dose of olanzapine Zydis 20 mg at bedtime last night. Today, he tells me that it "did not help at all." However, staff report that he has been somewhat more agreeable, more pleasant, and less paranoid today. -As he has with other providers, today he told me that I should have given him olanzapine 5 mg "to start", and I explained that he was already on olanzapine 20 mg when he came into the hospital and we know that he is able to tolerate that dose. He tells me that he did, in fact tolerate the dose and is not aware of any side effects, but, somewhat illogically, insisted that the dose was "too high for a starting dose." 03/11 - Continue current medication regimen at this time - olanzapine 20mg daily - Encourage participation in the milieu and in group programming as tolerated 03/12 -Continue current medication regimen. The patient's condition has not yet improved. -The patient does participate in select groups, but often tends to be disruptive. 03/13 -Today, the patient seems to be somewhat more cooperative and less frankly delusional. It was possible to engage in a mostly reality based conversation for 5 or 10 minutes at a time. Also, although he was unhappy with me when I refused to provide him with a dose of Valium for anxiety, he was able to remain pleasant and calm at this time, did not storm from the room." 03/14 and 03/15 -no change in medication will work on therapeutic alliance given patient is not participating 03/16 -304 involuntary commitment granted. -Patient remains completely uncooperative with treatment, refused his Zyprexa Zydis last evening, but then ultimately took it before he received the injection. I have a high suspicion for cheeking of antipsychotic medication, and we will continue to be vigilant with mouth checks, and work towards a long- acting injectable. 03/17 -Patient has been on Zyprexa 20 mg at bedtime for 1 week, with limited response. He is refusing to discuss other medication options. Per records, he has been prescribed up to 30 mg olanzapine in the past, so will increase his dose to this previously tolerated dose, as it is 1 of the few medications he has been willing to take. Continue IM backup for refusal, and Zyprexa Zydis formulation to decrease risk of cheeking. He is not compliant with mouth checks, but have asked staff to try to observe him for 10 minutes after taking the Zydis to ensure he is not spitting it out before it dissolves. 03/18 -Continue Zyprexa Zydis 30 mg at bedtime with IM backup. Consider switch to a different medication (?oral paliperidone with IM backup) if irritability and agitation continues. He has tried virtually every atypical antipsychotic and reports none of them were effective (although some trials were short due to nonadherence) and has a history of dystonia on haloperidol. Clozapine would be a reasonable choice, but he has been unwilling to even discuss medication options. -Consider some component of cognitive decline which could be contributing to his worsening presentation and will need to be monitored and worked up further once he is more psychiatrically stable. -Refer to [facility] in the event that he does not improve and long-term inpatient treatment is needed. 03/19 - Proceed with [facility] referral. 03/20 - Continue current medication regimen; patient refused EKG and CXR yesterday - refused again today - Continue attempts to gather information to make a referral to [facility] 03/23 - Proceed with [facility] referral - patient has refused EKG and CXR for multiple attempts. We will send most recent tests available - Continue current medication regimen at this time 03/24 -Attempted to hold diversion meeting with his outpatient M, senior care director, and the [facility] MH/ID; patient refused to attend or participate in the meeting. 03/25 - 03/26 - Continue treatment plan as above - no change in patient's condition and he remains unwilling to participate meaningfully in treatment - Continue with [facility] referral 03/27 -The patient has been informed that the plan at this point is to transfer him to [facility] for long-term inpatient psychiatric treatment, given his refusal to adhere with treatment and his associated behaviors in the community when not adherent with psychiatric treatment. -The patient continues to refuse mouth checks after given dosages of Zyprexa Zydis, and there is some question regarding whether he is actually ingesting this medication. He also would not cooperate with laboratory testing. -There has been a question regarding the patient's cognitive functions, and prior to admission he had been taking Aricept. When he does cooperate with this, I have not seen evidence of any substantial cognitive impairment. He may have mild cognitive impairment, but does not fully cooperate with formal cognitive assessment. He easily recalls the names of his providers, the names of the medications he is taking, the names of the various infectious agents that he believes are causing some of his psychiatric symptoms, the names of certain chemicals that he believes will rid him of the reference to infections, and is able to discuss current events such as recent news items. His assertion that he wants to return to his apartment in the community seems belied by his steadfast refusal to cooperate with those interventions I would make it possible for him to return, and there is some suspicion that although the patient remains floridly psychotic he may also be intentionally sabotaging discharge. 03/28 - 03/30 -There is been no pattern changer the past 2 weeks, and long-term inpatient treatment at the [facility] is indicated. 03/31 - Continue current medication regimen - Pt briefly verbalized willingness for FARAH, but was not agreeable to medication adjustments to allow for this to be possible - If he should change his mind; recommendation is for trial of Invega orally to establish tolerability, then consideration for Invega Sustenna - unwilling for this today 04/01 - 04/03 - Continue current medication regimen - Continues to refuse FARAH, will continue discussion daily as this is the reported preference of his CRR 04/04 -Questionable positive PPD measuring 13 mm but history of confinement places him at higher risk. Patient refused chest x-ray today but we will reapproach. No active symptoms of infection. Order for sputum culture and smear today for confirmation. 04/05 -PPD now appears negative. Would suggest follow through with sputum smear and culture for confirmation as previously ordered -Continue treatment plan as above 04/06 - PPD reportedly negative, patient unable to follow-up with sputum smear - therefore discontinued - Continue medication regimen as above - unwilling to discuss conversion to an FARAH - Meeting today with representation from [facility] to discuss discharge planning 04/07 - Continue medication regimen as above - remains unwilling to discuss changes - Additional meeting with CRR and CM scheduled for next week - We have been regularly assessing patient's condition and appropriateness to go outside since his 30-day treatment plan review. As patient continues to be unwilling to participate in a meaningful conversation with providers regarding his condition, we continue to be unable to determine if he is appropriate to be taken off the unit - therefore will await ability to discuss the topic in a meaningful way prior to making this determination. Will continue regular evaluation. 04/08 - 04/12 - Continue current medication regimen, as patient unwilling to discuss changes - Attempted again to determine if appropriate to go outside, patient unwilling to participate in conversation despite being told the goal of allowing him to go outside - Meeting with CM and CRR director scheduled for 04/13 at 1030 04/13 - Continue Zyprexa 30mg daily - unwilling to engage in conversation to discuss changes - Remains unwilling to engage in conversation to determine if he is appropriate to go outside, he has been made aware this is a possibility for him - Meeting for attempted diversion resulted in decision to no longer hold patient's [facility] bed, [facility] admission is supported based on little to no improvement since admission and limited willingness to engage in conversations regarding medication adjustments - We have been asked to attempt to get a QuantiFERON-TB Gold Plus test, despite negative PPD reading within acceptable timeframe - pt unwilling to engage in conversation to obtain consent, further indicating why long-term inpatient psychiatric hospitalization is necessary. Will continue to attempt to gain consent for this testing to be completed 04/15 -The patient is slightly more communicative today and that he does answer at least one question which was whether he would be in agreement if we offered him a drug holiday from olanzapine. His response was in the affirmative.. He also said "thank you." -The patient continues to appear suspicious and he clearly is angry at and unwilling to cooperate with staff. He is particularly bumptious with individuals who he sees as not fully trained and fully qualified. -The plan remains transfer to the [facility] for long-term psychiatric care. Our hope remains that we will be able to divert the patient from the [facility], but the patient, as noted above, remains uncommunicative and resistant. Perhaps contributing to the patient's obvious anger and distress is the fact that he has learned this week that his residential program is unwilling to allow him to return and has stopped holding his bed for other individuals. 04/16 - Continue current treatment plan, which includes holiday from olanzapine as a rapport building attempt, and due to concerns that he is more irritable and resistant to treatment - which is obviously not beneficial for his overall condition. - Attempted to communicate with the patient today via written/printed text - will add addendum to this note if patient was willing to complete the sheet and respond to questions 04/21 -Patient remains uncooperative and unwilling to participate in interviews, but has been out of his room more and attending some groups. He remains unwilling to discuss treatment options, including antipsychotic medication. (2) Substance abuse: 02/25 - Pt has reported history of substance abuse, and recommendation has consistently been for avoidance of substances with significant abuse potential. - PDMP queried - most recent prescriptions below - lorazepam 0.5mg #60 tabs for 30 day supply - Dr. Alves - filled 02/12/2019 - alprazolam 0.5mg #90 tabs for 30 day supply - Dr. Lopez - filled 01/16/2019 - temazepam 30mg #30 caps for 30 day supply - Dr. Lopez - filled 01/16/2019 - Will continue lorazepam 0.5mg BID prn on admission, as only medication that is seemingly active - toxicology screen is negative for benzodiazepines, which questions if he has been taking the medication appropriately - Ideally will taper and discontinue the lorazepam, as recommendation remains that substances with abuse potential be avoided 02/26 -The patient's outpatient providers, during a meeting this morning, report that the patient tends to successfully convince physicians to prescribe benzodiazepines for him and that, in the past, he has abused him to the degree that he is practically obtunded. 02/27 -A repeat check of the PDMP reveals that the patient is consistently being prescribed lorazepam 0.5 mg twice daily (number 60/month) by a Dr. Brent Alves. He is also being prescribed alprazolam 0.[address] mg [address] Jeff Lopez, with the most recent previous prescription of alprazolam being on 01/16/[address] Lopez also prescribed temazepam 30 mg capsules #30 on 01/16/2019. According to his residential providers, no temazepam capsules were found among the patient's belongings. His most recent prescription for lorazepam 0.5 mg tablets was filled on 02/12/2019. 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 In the past, he reportedly has used clonazepam and temazepam. -I advised the patient that because of his history of misuse of benzodiazepines we would not be prescribing benzodiazepines during his hospital stay. An as needed order for lorazepam has not been used during hospital stay, and I discontinued the order today. 03/02 - Will need to coordinate care with his PCP and outpatient psychiatrist prior to discharge regarding the above. 03/04 - Charge nurse spoke with the above offices regarding concern for continued benzodiazepine prescriptions - Records will be faxed to their offices on discharge, as all benzodiazepines were discontinued during this hospitalization 03/06 -The patient did not request benzodiazepines and did not complain of anxiety today. I suggested to him that perhaps Abilify is also helping with anxiety in his case, and he responded by saying "perhaps." 03/09 -Today, the patient is insisting that what he needs is "benzodiazepines," and explains that the reason he "needs" benzodiazepines is that he has "benzodiazepine receptors," and that he is the only medications that work. He is unable to process warnings about the risks of benzodiazepines in the elderly, including increased risk of falls and mortality. Clearly, the patient is seeking benzodiazepines and has no insight into the associated risks. He also insists that he has never had trouble with benzodiazepines in the past, although there is well-documented of this. 03/10 -Today, the patient repeated his insistence that he needs benzodiazepines and that benzodiazepines are the only medications that work because he has "benzodiazepine receptors." After being told that everyone has central nervous system receptors to which benzodiazepines may attach, he replied, "That may be, but some of people need to have benzodiazepines forearm benzodiazepine receptors. 03/12 -Continues to request Benzodiazepines. 03/13 -Requests Valium for his "benzodiazepines receptors." 03/27 -Refuses to cooperate with assessment today, but has recently told staff that he needs "either Valium or Ativan." -The patient apparently has no working insight into his history of abuse of prescription medications (benzodiazepines). 04/15 -The patient has not reference to request for benzodiazepines recently. However, the context is that he has not communicated much of anything directly, a other than the occasional need for self-care items. (3) Hypertension: 02/25 - Continue home dose of clonidine 0.1mg qHS 03/01 Watch mildly elevated blood pressures as patient has been refusing clonidine 03/03 - BP normal past two days, and low today 03/10 -The patient's blood pressure today was 136/73. His pulse was 71 03/14 - elevated BP it is not urgent but will need monitored. 03/15 - BP WNL 03/26 - BP continues to be WNL 04/02 - BP remains within normal limits; continue daily vitals per standard admission order set - Will consider acute phase of this problem resolved at this time Risk Factors Assessment Male: Yes : Yes Do You Have Access To A Gun?: No Health Problems: Yes Mental Health Diagnoses: Yes Substance Use Disorders: Yes Protective Factors Assessment Islam Beliefs: No : No Responsible for Young Children: No Employed: No Stable Relationships: No Supportive Family: No Good Rapport with Provider: No Absence of Any Risk Factors Above: No Interval History Identifying Information SCOTT ROBERTO is a 73-year-old M who currently lives at a [facility] in [place], has a history of schizophrenia, and is known to our unit from several previous admissions, most recently in 09/2016. He was admitted on 02/24/19 16:40 on a 302 involuntary commitment for exacerbation of schizophrenia and heightened paranoia resulting in belief he needed to hide in a dumpster to seek refuge from impending bombings. He was found by [facility] staff and brought to the ED by police, and is on a 304 involuntary commitment as of 03/16/19. He has been referred to [facility] for fci treatment. Chief Complaint Patient unresponsive to requests he engage in discussion. Review of Systems Sleep Information Total Hours of Sleep: 7.5 Sleep Comments: pt on q-15 minute checks Meal Information Percent Meal Consumed - Breakfast: 100 Percent Meal Consumed - Lunch: 100 Percent Meal Consumed - Dinner: 100 Nutrition Comment: per meal record Subjective Subjective Patient was seen & assessed and interval progress reviewed with treatment team. Staff report he has been out of his room more, and attended some groups, but remains unwilling to engage with the psychiatrist or PA. He remains angry, and last week was informed that [facility] was unwilling to continue to hold his bed, due to his unwillingness to cooperate with treatment here at the hospital, his long history of uncooperative and nonadherent behaviors in the residential program, and his ongoing active symptomatology which has not imp roved here. Although olanzapine has been helpful in stabilizing the patient's psychosis in the community in the past, he has not demonstrated improvement on it here, and it was stopped 04/17/19 as he was more angry, withdrawn, and resistant. Since that time, he has been slightly more cooperative, as he comes out of his room more, but still refuses to engage with clinicians. I attempted to see the patient multiple times, on approach, he turned his back and walked away. He did not respond verbally to attempts to engage him. Physical Exam Psychiatric Orientation: alert; + uncooperative Apperance: appropriately dressed, appropriately groomed and appeared stated age Avoids eye contact. Turns back and walks away. Motor Behavior: steady gait and station and no abnormal motor movements No speech. Affect: + irritable affect and + constricted affect Patient would not answer questions. Insight: + severely impaired insight Judgement: + severely impaired judgement Vital Signs (Past 24 Hours) Last Vital Signs Temp 36.4 C L 04/21/19 06:45 Pulse 71 04/21/19 06:46 Resp 18 04/21/19 06:45 BP 103/64 04/21/19 06:46 Pulse Ox 96 02/24/19 08:10 Results & Data Current Inpatient Medications Current Inpatient Medications: Current Inpatient Medications Acetaminophen (Tylenol) 650 mg PO Q4H PRN PRN Reason: Headache or Minor Fever Stop: 04/24/19 08:39 Al Hydrox/Mg Hydrox/Simethicone (Maalox) 30 ml PO Q4H PRN PRN Reason: GI Upset Stop: 04/24/19 08:39 Benztropine Mesylate (Cogentin) 0.5 mg PO BID PRN PRN Reason: dystonia Stop: 04/24/19 08:39 Bismuth Subsalicylate (Kaopectate) 15 ml PO PRN PRN PRN Reason: Loose Stool Stop: 04/24/19 08:39 Clonidine HCl (Catapres) 0.1 mg PO HS MGA Stop: 04/24/19 21:59 Last Admin: 04/20/19 21:03 Dose: 0.1 mg Documented by: Cyanocobalamin (Vitamin B-12) 500 mcg PO DAILY MAG Stop: 04/24/19 08:59 Last Admin: 04/20/19 08:05 Dose: 500 mcg Documented by: Hydroxyzine HCl (Vistaril) 50 mg PO HSZ PRN PRN Reason: Insomnia Stop: 04/24/19 08:44 Hydroxyzine HCl (Vistaril) 25 mg PO Q4H PRN PRN Reason: Anxiety Stop: 04/24/19 08:44 Magnesium Citrate (Citrate) 148 ml PO BID PRN PRN Reason: constipation Stop: 04/22/19 20:59 Last Admin: 03/23/19 17:19 Dose: 148 ml Documented by: Magnesium Hydroxide (Milk Of Magnesia) 30 ml PO DAILY PRN PRN Reason: Heartburn Stop: 04/24/19 08:44 Magnesium Oxide (Mag-Ox) 400 mg PO DAILY MAG Stop: 04/24/19 08:59 Last Admin: 04/20/19 08:05 Dose: 400 mg Documented by: Miscellaneous (Remove Nicoderm Patch) 1 ea N/A HS MAG Stop: 04/24/19 21:59 Last Admin: 04/20/19 21:04 Dose: 1 ea Documented by: Multivitamins (Multivitamin Tab) 1 tab PO DAILY MAG Stop: 04/24/19 08:59 Last Admin: 04/20/19 08:05 Dose: 1 tab Documented by: Nicotine (Nicoderm Cq) 14 mg TD QAM MAG Stop: 04/24/19 08:59 Last Admin: 04/20/19 08:05 Dose: 14 mg Documented by: Olanzapine (Zyprexa) 10 mg IM HS PRN PRN Reason: Undecided Stop: 04/24/19 08:44 Pyridoxine HCl (Vitamin B-6) 100 mg PO DAILY MAG Stop: 04/24/19 08:59 Last Admin: 04/20/19 08:05 Dose: 100 mg Documented by: Risperidone (Risperdal M) 1 mg PO BID PRN PRN Reason: psychosis Stop: 04/24/19 08:44 Sodium Chloride ([place]on Nasal) 1 - 2 sprays NA PRN PRN PRN Reason: Nasal Dryness/Congestion Stop: 04/24/19 08:44 Mental Health & Subst Abuse Tx Therapist Name of Therapist: Denies Lean Engineer Name of Lean Engineer: Shruti Lopez Phone Number for Lean Engineer: Case Management Appointment Comment: [address], [place] [address] Post Discharge Appointments Primary Care Physician Name Of Family Doctor: Dr. Lopez Contact Information Discharge Discharge Address: [address] [place] [address] CPT Code CPT Code 67305 (1) Schizophrenia Schizophrenia type: paranoid schizophrenia Qualified Code(s): F20.0 - Paranoid schizophrenia (2) Hypertension Hypertension type: essential hypertension Qualified Code(s): I10 - Essential (primary) hypertension
[2019-04-21] MEDS: cloNIDine HCL 0.1 MG TAB PO SCH (20:51)
--- NOTE | 2019-04-22 08:24 | Psychiatric Progress Note ---
Date of Service April 22, 2019 Impression / Recommendations Impression Patient remains uncooperative, will not speak to clinicians, nor take medication. He is however coming out of his room more and attending some groups. His custodial bed was relinquished due to ongoing psychotic symptoms and unwillingness to engage in treatment, and although [facility], we still do not have a bed date. (1) Schizophrenia: the interview.02/25 - Continue home medication regimen - as refusing offerings of his antipsychotic, will likely require olanzapine IM (or alternative agent) over objection, given clear evidence of paranoia and delusional thought process - previously stabilized on this medication - Pt agreeable to taking all other medications, with exception of antipsychotic as mentioned above - Admitted to a locked inpatient behavioral health unit, on q15 minute safety checks - Encourage medication initiation/adjustments as indicated - Encourage participation in group and recreational therapies - Gather collateral information from outpatient providers and custodial staff - Suggest family meeting to involve outpatient supports in safety planning - Reschedule appropriate aftercare appointments 02/26 -Patient indicates willingness to sign a release for the [facility] custodial, will get collateral from their staff. -File for 303 involuntary commitment to be held tomorrow. -Recommend medications over objection, with an IM Zyprexa backup for refusal of oral medication. Involve outpatient treatment team to discuss ways to improve stability and compliance; consider long-acting injectable antipsychotic. -Order fasting labs for monitoring on an atypical antipsychotic once patient is more cooperative. 02/27 -The patient was retrained at his involuntary commitment hearing (303) this morning. -He has continuously and consistently refused psychiatric medications to date. However, today, when I explained that that a option that might become necessary in his case is medication over objection, and an intramuscular form, the patient said that he understood and that he would try medications that I prescribe. His initial preference would be olanzapine, but because olanzapine is not available in a long acting depot form, we would first like to try aripiprazole. He indicates that he is taken aripiprazole in the past and has been able to tolerate it, although he does not believe that it has been particularly helpful. -A trial dose of aripiprazole 15 mg by mouth, as a one-time dose, has been ordered and he assessed for efficacy. 02/28 -Appears to be tolerating initiation of Abilify so far. Remains delusional, paranoid. May consider further titration tomorrow -Aricept discontinued at patient's request on 02/27/2019. The medication has not been demonstrated to be efficacious for cognitive impairment associated with long-standing schizophrenia however we should be vigilant for slowing of mentation following discontinuation. 03/01 Patient fixated and irrational regarding access to clothing item as above today. Hospital environment becoming incorporated and delusions. Consider possibility that the aripiprazole is contributing to activation. We will increase to 20 mg tomorrow and also start Risperdal 1 mg p.o. twice daily as as needed. 03/02 - Continue with aripiprazole at 20mg daily, consider need for further titration - if tolerating and effective, eventual plan will be for conversion to Abilify Maintena - Pt has not yet utilized risperidone 03/03 - Increase aripiprazole to 25mg (equivalent to 30mg pill) and change to liquid formulation to decrease risk of cheeking/nonadherence, as patient does not believe he needs medication and had been noncompliant prior to hospitalization. - Fasting glucose and lipid profile ordered for tomorrow for monitoring on an atypical antipsychotic. - Private room due to psychosis, agitation, and inappropriate disrobing/sexual behavior. - Meeting with [facility] and [facility] staff when patient able to tolerate. 03/04 - Continue aripiprazole 25mg liquid (30mg pill equivalent) and continue to observe for improvement in thought process/content - consider conversion to Maintena if effective, versus trial of another agent if improvement remains limited - Fasting labs reviewed - all values WNL - Continue medically necessary private room - Request meeting with [facility] staff, in order to obtain details about patient's proximity to baseline 03/05 -Patient refusing liquid aripiprazole, but agrees to take the pill: Ordered 30 mg daily. -Schedule meeting with his nurse case management, CRR and psych rehab staff. Consider involuntary outpatient commitment at the time of discharge. 03/06 -The patient has improved in that he is more reality based at this point. He continues to harbor fixed, systematized delusions, but is generally able to focus on reality based topics. -Although the patient tells me that he does not feel that aripiprazole has been effective, he is able to accept my opinion in the opinion of the staff that he has improved in response to aripiprazole. -The patient's main objection to aripiprazole oral solution is that he does not like the way it tastes, and within this context, he tells us that he is willing to accept Abilify Maintenaand requests that it be injected into his buttock. Abilify Maintena 300 mg IM ordered, and oral Abilify discontinued. We will resume oral Abilify if the patient subsequently changes his mind and refuses the injection. 03/07 resuming abilfiy oral given his refusal of FARAH form of abilify 03/08 is taking abilify po form but refusing abilify maintena form. advise clos e monitoring for potential of checking given pt's tendency to not want to take medications. 03/09 -The patient is flatly refusing to take aripiprazole in the form of Abilify Maintena. He is also been hesitant to take oral Abilify, but has been doing so. -The patient's lack of cooperation is thought possibly to be related to an un-expressed desire to not be discharged back to the community. He told me today that he left his meeting with his community providers after a few seconds because "just the side of them made me extremely anxious. My pulse elevated to 140." Later, he told me that he was still anxious about it and his pulse was "still around 130." The patient allowed me to take his pulse, and it was approximately 76. At that point he said, "did I say pulse? I meant systolic b lood pressure." And when I pointed out that his systolic blood pressure of 130 is not considered to be a particular concern, he said "I mean diastolic." -Our hope had been that the patient would agree to accept a Depo form of medication. He was refusing Haldol Decanoate because of various side effects. Risperidone constant was ruled out as a first-line Depo medication because of the frequency of administration (the patient tends to get into power struggles over medications) and because he says that he is sensitive to "big needles." Invega would be an option, but currently the patient is being so uncooperative that our concern would be that he would cheek the oral tablets that we would have to give him first. Accordingly, the new strategy will be to discontinue Abilify, and resume olanzapine with olanzapine IM over objection if necessary. We will begin the olanzapine Zydis 20 mg at bedtime 03/10 -The patient took the prescribed dose of olanzapine Zydis 20 mg at bedtime last night. Today, he tells me that it "did not help at all." However, staff report that he has been somewhat more agreeable, more pleasant, and less paranoid today. -As he has with other providers, today he told me that I should have given him olanzapine 5 mg "to start", and I explained that he was already on olanzapine 20 mg when he came into the hospital and we know that he is able to tolerate that dose. He tells me that he did, in fact tolerate the dose and is not aware of any side effects, but, somewhat illogically, insisted that the dose was "too high for a starting dose." 03/11 - Continue current medication regimen at this time - olanzapine 20mg daily - Encourage participation in the milieu and in group programming as tolerated 03/12 -Continue current medication regimen. The patient's condition has not yet improved. -The patient does participate in select groups, but often tends to be disruptive. 03/13 -Today, the patient seems to be somewhat more cooperative and less frankly delusional. It was possible to engage in a mostly reality based conversation for 5 or 10 minutes at a time. Also, although he was unhappy with me when I refused to provide him with a dose of Valium for anxiety, he was able to remain pleasant and calm at this time, did not storm from the room." 03/14 and 03/15 -no change in medication will work on therapeutic alliance given patient is not participating 03/16 -304 involuntary commitment granted. -Patient remains completely uncooperative with treatment, refused his Zyprexa Zydis last evening, but then ultimately took it before he received the injection. I have a high suspicion for cheeking of antipsychotic medication, and we will continue to be vigilant with mouth checks, and work towards a long- acting injectable. 03/17 -Patient has been on Zyprexa 20 mg at bedtime for 1 week, with limited response. He is refusing to discuss other medication options. Per records, he has been prescribed up to 30 mg olanzapine in the past, so will increase his dose to this previously tolerated dose, as it is 1 of the few medications he has been willing to take. Continue IM backup for refusal, and Zyprexa Zydis formulation to decrease risk of cheeking. He is not compliant with mouth checks, but have asked staff to try to observe him for 10 minutes after taking the Zydis to ensure he is not spitting it out before it dissolves. 03/18 -Continue Zyprexa Zydis 30 mg at bedtime with IM backup. Consider switch to a different medication (?oral paliperidone with IM backup) if irritability and agitation continues. He has tried virtually every atypical antipsychotic and reports none of them were effective (although some trials were short due to nonadherence) and has a history of dystonia on haloperidol. Clozapine would be a reasonable choice, but he has been unwilling to even discuss medication options. -Consider some component of cognitive decline which could be contributing to his worsening presentation and will need to be monitored and worked up further once he is more psychiatrically stable. -Refer to [facility] in the event that he does not improve and long-term inpatient treatment is needed. 03/19 - Proceed with [facility] referral. 03/20 - Continue current medication regimen; patient refused EKG and CXR yesterday - refused again today - Continue attempts to gather information to make a referral to [facility] 03/23 - Proceed with [facility] referral - patient has refused EKG and CXR for multiple attempts. We will send most recent tests available - Continue current medication regimen at this time 03/24 -Attempted to hold diversion meeting with his outpatient [facility], custodial director, and the critical access hospital [facility]; patient refused to attend or participate in the meeting. 03/25 - 03/26 - Continue treatment plan as above - no change in patient's condition and he remains unwilling to participate meaningfully in treatment - Continue with [facility] referral 03/27 -The patient has been informed that the plan at this point is to transfer him to [facility] for long-term inpatient psychiatric treatment, given his refusal to adhere with treatment and his associated behaviors in the community when not adherent with psychiatric treatment. -The patient continues to refuse mouth checks after given dosages of Zyprexa Zydis, and there is some question regarding whether he is actually ingesting this medication. He also would not cooperate with laboratory testing. -There has been a question regarding the patient's cognitive functions, and prior to admission he had been taking Aricept. When he does cooperate with this, I have not seen evidence of any substantial cognitive impairment. He may have mild cognitive impairment, but does not fully cooperate with formal cognitive assessment. He easily recalls the names of his providers, the names of the medications he is taking, the names of the various infectious agents that he believes are causing some of his psychiatric symptoms, the names of certain chemicals that he believes will rid him of the reference to infections, and is able to discuss current events such as recent news items. His assertion that he wants to return to his apartment in the community seems belied by his steadfast refusal to cooperate with those interventions I would make it possible for him to return, and there is some suspicion that although the patient remains floridly psychotic he may also be intentionally sabotaging discharge. 03/28 - 03/30 -There is been no supervisor records change the past 2 weeks, and long-term inpatient treatment at the [facility] is indicated. 03/31 - Continue current medication regimen - Pt briefly verbalized willingness for FARAH, but was not agreeable to medication adjustments to allow for this to be possible - If he should change his mind; recommendation is for trial of Invega orally to establish tolerability, then consideration for Invega Sustenna - unwilling for this today 04/01 - 04/03 - Continue current medication regimen - Continues to refuse FARAH, will continue discussion daily as this is the reported preference of his CRR 04/04 -Questionable positive PPD measuring 13 mm but history of confinement places him at higher risk. Patient refused chest x-ray today but we will reapproach. No active symptoms of infection. Order for sputum culture and smear today for confirmation. 04/05 -PPD now appears negative. Would suggest follow through with sputum smear and culture for confirmation as previously ordered -Continue treatment plan as above 04/06 - PPD reportedly negative, patient unable to follow-up with sputum smear - therefore discontinued - Continue medication regimen as above - unwilling to discuss conversion to an FARAH - Meeting today with representation from [facility] to discuss discharge planning 04/07 - Continue medication regimen as above - remains unwilling to discuss changes - Additional meeting with CRR and CM scheduled for next week - We have been regularly assessing patient's condition and appropriateness to go outside since his 30-day treatment plan review. As patient continues to be unwilling to participate in a meaningful conversation with providers regarding his condition, we continue to be unable to determine if he is appropriate to be taken off the unit - therefore will await ability to discuss the topic in a meaningful way prior to making this determination. Will continue regular evaluation. 04/08 - 04/12 - Continue current medication regimen, as patient unwilling to discuss changes - Attempted again to determine if appropriate to go outside, patient unwilling to participate in conversation despite being told the goal of allowing him to go outside - Meeting with CM and CRR director scheduled for 04/13 at 1030 04/13 - Continue Zyprexa 30mg daily - unwilling to engage in conversation to discuss changes - Remains unwilling to engage in conversation to determine if he is appropriate to go outside, he has been made aware this is a possibility for him - Meeting for attempted diversion resulted in decision to no longer hold patient's CRR bed, [facility] admission is supported based on little to no improvement since admission and limited willingness to engage in conversations regarding medication adjustments - We have been asked to attempt to get a QuantiFERON-TB Gold Plus test, despite negative PPD reading within acceptable timeframe - pt unwilling to engage in conversation to obtain consent, further indicating why long-term inpatient psychiatric hospitalization is necessary. Will continue to attempt to gain consent for this testing to be completed 04/15 -The patient is slightly more communicative today and that he does answer at least one question which was whether he would be in agreement if we offered him a drug holiday from olanzapine. His response was in the affirmative.. He also said "thank you." -The patient continues to appear suspicious and he clearly is angry at and unwilling to cooperate with staff. He is particularly bumptious with individuals who he sees as not fully trained and fully qualified. -The plan remains [facility]. Our hope remains that we will be able to divert the [facility] from [facility], but the patient, as noted above, remains uncommunicative and resistant. Perhaps contributing to the patient's obvious anger and distress is the fact that he has learned this week that his residential program is unwilling to allow him to return and has stopped holding his bed for other individuals. 04/16 - Continue current treatment plan, which includes holiday from olanzapine as a rapport building attempt, and due to concerns that he is more irritable and resistant to treatment - which is obviously not beneficial for his overall con dition. - Attempted to communicate with the patient today via written/printed text - will add addendum to this note if patient was willing to complete the sheet and respond to questions 04/21 -Patient remains uncooperative and unwilling to participate in interviews, but has been out of his room more and attending some groups. He remains unwilling to discuss treatment options, including antipsychotic medication. 04/22 - Patient remains unwilling for medications, but is interacting with peers appropriately and attending groups. Will try discontinuing private room and placing him with a roommate, is perhaps increased socialization will be therapeutic for him. (2) Substance abuse: 02/25 - Pt has reported history of substance abuse, and recommendation has consistently been for avoidance of substances with significant abuse potential. - PDMP queried - most recent prescriptions below - lorazepam 0.5mg #60 tabs for 30 day supply - Dr. Alves - filled 02/12/2019 - alprazolam 0.5mg #90 tabs for 30 day supply - Dr. Lopez - filled 01/16/2019 - temazepam 30mg #30 caps for 30 day supply - Dr. Lopez - filled 01/16/2019 - Will continue lorazepam 0.5mg BID prn on admission, as only medication that is seemingly active - toxicology screen is negative for benzodiazepines, which questions if he has been taking the medication appropriately - Ideally will taper and discontinue the lorazepam, as recommendation remains that substances with abuse potential be avoided 02/26 -The patient's outpatient providers, during a meeting this morning, report that the patient tends to successfully convince physicians to prescribe benzodiazepines for him and that, in the past, he has abused him to the degree that he is practically obtunded. 02/27 -A repeat check of the PDMP reveals that the patient is consistently being prescribed lorazepam 0.5 mg twice daily (number 60/month) by a Dr. Brent Alves. He is also being prescribed alprazolam 0.[address] mg [address] Jeff Lopez, with the most recent previous prescription of alprazolam being on 01/16/[address] Lopez also prescribed temazepam 30 mg capsules #30 on 01/16/2019. According to his residential providers, no temazepam capsules were found among the patient's belongings. His most recent prescription for lorazepam 0.5 mg tablets was filled on 02/12/2019. 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 In the past, he reportedly has used clonazepam and temazepam. -I advised the patient that because of his history of misuse of benzodiazepines we would not be prescribing benzodiazepines during his hospital stay. An as needed order for lorazepam has not been used during hospital stay, and I discontinued the order today. 03/02 - Will need to coordinate care with his PCP and outpatient psychiatrist prior to discharge regarding the above. 03/04 - Charge nurse spoke with the above offices regarding concern for continued benzodiazepine prescriptions - Records will be faxed to their offices on discharge, as all benzodiazepines were discontinued during this hospitalization 03/06 -The patient did not request benzodiazepines and did not complain of anxiety today. I suggested to him that perhaps Abilify is also helping with anxiety in his case, and he responded by saying "perhaps." 03/09 -Today, the patient is insisting that what he needs is "benzodiazepines," and explains that the reason he "needs" benzodiazepines is that he has "benzodiaz epine receptors," and that he is the only medications that work. He is unable to process warnings about the risks of benzodiazepines in the elderly, including increased risk of falls and mortality. Clearly, the patient is seeking benzodiazepines and has no insight into the associated risks. He also insists that he has never had trouble with benzodiazepines in the past, although there is well-documented of this. 03/10 -Today, the patient repeated his insistence that he needs benzodiazepines and that benzodiazepines are the only medications that work because he has "benzodiazepine receptors." After being told that everyone has central nervous system receptors to which benzodiazepines may attach, he replied, "That may be, but some of people need to have benzodiazepines forearm benzodiazepine receptors. 03/12 -Continues to request Benzodiazepines. 03/13 -Requests Valium for his "benzodiazepines receptors." 03/27 -Refuses to cooperate with assessment today, but has recently told staff that he needs "either Valium or Ativan." -The patient apparently has no working insight into his history of abuse of prescription medications (benzodiazepines). 04/15 -The patient has not reference to request for benzodiazepines recently. However, the context is that he has not communicated much of anything directly, a other than the occasional need for self-care items. (3) Hypertension: 02/25 - Continue home dose of clonidine 0.1mg qHS 03/01 Watch mildly elevated blood pressures as patient has been refusing clonidine 03/03 - BP normal past two days, and low today 03/10 -The patient's blood pressure today was 136/73. His pulse was 71 03/14 - elevated BP it is not urgent but will need monitored. 03/15 - BP WNL 03/26 - BP continues to be WNL 04/02 - BP remains within normal limits; continue daily vitals per standard admission order set - Will consider acute phase of this problem resolved at this time Risk Factors Assessment Male: Yes : Yes Do You Have Access To A Gun?: No Health Problems: Yes Mental Health Diagnoses: Yes Substance Use Disorders: Yes Protective Factors Assessment Caodaism Beliefs: No : No Responsible for Young Children: No Employed: No Stable Relationships: No Supportive Family: No Good Rapport with Provider: No Absence of Any Risk Factors Above: No Interval History Identifying Information SCOTT ROBERTO is a 73-year-old M who currently lives at a [facility] in [place], has a history of schizophrenia, and is known to our unit from several previous admissions, most recently in 09/2016. He was admitted on 02/24/19 16:40 on a 302 involuntary commitment for exacerbation of schizophrenia and heightened paranoia resulting in belief he needed to hide in a dumpster to seek refuge from impending bombings. He was found by [facility] staff and brought to the ED by police, and is on a 304 involuntary commitment as of 03/16/19. He has been referred to [facility] for nursing home treatment. Chief Complaint "Fine". Review of Systems Sleep Information Total Hours of Sleep: 6 Sleep Comments: pt awoke x1 to each cereals with milk. pt onq-15 minute checks Meal Information Percent Meal Consumed - Breakfast: 100 Percent Meal Consumed - Lunch: 100 Percent Meal Consumed - Dinner: 100 Nutrition Comment: per meal record Subjective Subjective Patient was seen & assessed and interval progress reviewed with treatment team. Staff report he continues to refuse to speak with clinicians, but did attend and participate in group. He met with his BCM and expressed a desire to go to [facility], but unwilling to take medication. This morning he has been more agitated, demanding that staff let him leave and repeatedly asking. On my assessment, the patient was seen in his room, where he was more receptive to discussion and engaged briefly in interview before he terminated it. He states that his mood is "fine," but that he is angry at his BCM and [facility] for "evicting me," stating that it is against the law for them to do that and that they are not recognizing "my rights." He says that the CRR is for "chronic people," and that he is "the only person who is eligible for that." He thinks that they should have to find him an apartment if they will not allow him to return to the custodial. Although he alludes to having a chronic mental illness, he does not believe he needs medication, and states that medications are "straight jackets, they are terrible." He thinks that since stopping his medication about a week ago he is doing much better, stating that his restless legs have resolved and that he feels "great." Of note, he is moving his legs constantly throughout the interaction. He says he is taking about different options that would be helpful for his treatment, but has no ideas at present and remains unwilling to take medications. He becomes increasingly angry when talking about his meeting with his nurse case management yesterday, ultimately dismissing this physician and stating he does not want to talk anymore. Physical Exam Psychiatric Orientation: alert Partially cooperative, but terminated the interview Apperance: appropriately dressed and appeared stated age Seated on bed in no acute distress. Motor Behavior: + psychomotor agitation (Moving legs throughout the assessment.) Speech: normal rate/rhythm/volume of speech Tone became more irritable as assessment progressed. Affect: + mood not congruent with affect Initially euthymic with an irritable edge, but became increasingly irritable. "Fine." Thought Process: + perseveration (On violations of his rights) Thought Content: + persecution Suicidal Thoughts: denies suicidal thoughts Homicidal Thoughts: denies homicidal thoughts Cognition: language grossly intact Insight: + impaired insight Judgement: + impaired judgement Vital Signs (Past 24 Hours) Last Vital Signs Temp 36.4 C L 04/21/19 06:45 Pulse 71 04/21/19 06:46 Resp 18 04/21/19 06:45 BP 103/64 04/21/19 06:46 Pulse Ox 96 02/24/19 08:10 Results & Data Current Inpatient Medications Current Inpatient Medications: Current Inpatient Medications Acetaminophen (Tylenol) 650 mg PO Q4H PRN PRN Reason: Headache or Minor Fever Stop: 04/24/19 08:39 Al Hydrox/Mg Hydrox/Simethicone (Maalox) 30 ml PO Q4H PRN PRN Reason: GI Upset Stop: 04/24/19 08:39 Benztropine Mesylate (Cogentin) 0.5 mg PO BID PRN PRN Reason: dystonia Stop: 04/24/19 08:39 Bismuth Subsalicylate (Kaopectate) 15 ml PO PRN PRN PRN Reason: Loose Stool Stop: 04/24/19 08:39 Clonidine HCl (Catapres) 0.1 mg PO HS MAG Stop: 04/24/19 21:59 Last Admin: 04/21/19 20:51 Dose: 0.1 mg Documented by: Cyanocobalamin (Vitamin B-12) 500 mcg PO DAILY MAG Stop: 04/24/19 08:59 Last Admin: 04/21/19 08:36 Dose: 500 mcg Documented by: Hydroxyzine HCl (Vistaril) 50 mg PO HSZ PRN PRN Reason: Insomnia Stop: 04/24/19 08:44 Hydroxyzine HCl (Vistaril) 25 mg PO Q4H PRN PRN Reason: Anxiety Stop: 04/24/19 08:44 Magnesium Citrate (Citrate) 148 ml PO BID PRN PRN Reason: constipation Stop: 04/22/19 20:59 Last Admin: 03/23/19 17:19 Dose: 148 ml Documented by: Magnesium Hydroxide (Milk Of Magnesia) 30 ml PO DAILY PRN PRN Reason: Heartburn Stop: 04/24/19 08:44 Magnesium Oxide (Mag-Ox) 400 mg PO DAILY MAG Stop: 04/24/19 08:59 Last Admin: 04/21/19 08:36 Dose: 400 mg Documented by: Miscellaneous (Remove Nicoderm Patch) 1 ea N/A HS MAG Stop: 04/24/19 21:59 Last Admin: 04/21/19 20:52 Dose: 1 ea Documented by: Multivitamins (Multivitamin Tab) 1 tab PO DAILY MAG Stop: 04/24/19 08:59 Last Admin: 04/21/19 08:36 Dose: 1 tab Documented by: Nicotine (Nicoderm Cq) 14 mg TD QAM MAG Stop: 04/24/19 08:59 Last Admin: 04/21/19 08:37 Dose: 14 mg Documented by: Olanzapine (Zyprexa) 10 mg IM HS PRN PRN Reason: Undecided Stop: 04/24/19 08:44 Pyridoxine HCl (Vitamin B-6) 100 mg PO DAILY MAG Stop: 04/24/19 08:59 Last Admin: 04/21/19 08:36 Dose: 100 mg Documented by: Risperidone (Risperdal M) 1 mg PO BID PRN PRN Reason: psychosis Stop: 04/24/19 08:44 Sodium Chloride ([place] Nasal) 1 - 2 sprays NA PRN PRN PRN Reason: Nasal Dryness/Congestion Stop: 04/24/19 08:44 Mental Health & Subst Abuse Tx Therapist Name of Therapist: Denies Ophthalmic Dispenser Name of Ophthalmic Dispenser: Shruti Lopez Phone Number for Ophthalmic Dispenser: Case Management Appointment Comment: [phone] , [place] [address] Post Discharge Appointments Primary Care Physician Name Of Family Doctor: Dr. Lopez Contact Information Discharge Discharge Address: [address] [place] [id number] CPT Code CPT Code 00687 (1) Schizophrenia Schizophrenia type: paranoid schizophrenia Qualified Code(s): F20.0 - Paranoid schizophrenia (2) Hypertension Hypertension type: essential hypertension Qualified Code(s): I10 - Essential (primary) hypertension
[2019-04-22] MEDS: CYANOCOBALAMIN 500 MCG TABLET (VITAMIN B-12) PO SCH (08:30)
[2019-04-22] MEDS: MULTIVITAMIN TAB PO SCH (08:30)
[2019-04-22] MEDS: NICOTINE 14 MG/24 HR PATCH TD SCH (08:30)
[2019-04-22] MEDS: PYRIDOXINE HCL 50 MG TAB PO SCH (08:30)
[2019-04-22] MEDS: MAGNESIUM OXIDE 400 MG TAB PO SCH (08:30)
[2019-04-22] MEDS: cloNIDine HCL 0.1 MG TAB PO SCH (21:18)
--- NOTE | 2019-04-23 08:13 | Psychiatric Progress Note ---
Date of Service April 23, 2019 Impression / Recommendations Impression Patient remains uncooperative, will not speak to clinicians, nor take medication. He is however coming out of his room more and attending some groups. His long-term bed was relinquished due to ongoing psychotic symptoms and unwillingness to engage in treatment, and although he has been accepted at the [facility], we still do not have a bed date. (1) Schizophrenia: the interview.02/25 - Continue home medication regimen - as refusing offerings of his antipsychotic, will likely require olanzapine IM (or alternative agent) over objection, given clear evidence of paranoia and delusional thought process - previously stabilized on this medication - Pt agreeable to taking all other medications, with exception of antipsychotic as mentioned above - Admitted to a locked inpatient behavioral health unit, on q15 minute safety checks - Encourage medication initiation/adjustments as indicated - Encourage participation in group and recreational therapies - Gather collateral information from outpatient providers and long-term staff - Suggest family meeting to involve outpatient supports in safety planning - Reschedule appropriate aftercare appointments 02/26 -Patient indicates willingness to sign a release for the [facility] long-term, will get collateral from their staff. -File for 303 involuntary commitment to be held tomorrow. -Recommend medications over objection, with an IM Zyprexa backup for refusal of oral medication. Involve outpatient treatment team to discuss ways to improve stability and compliance; consider long-acting injectable antipsychotic. -Order fasting labs for monitoring on an atypical antipsychotic once patient is more cooperative. 02/27 -The patient was retrained at his involuntary commitment hearing (303) this morning. -He has continuously and consistently refused psychiatric medications to date. However, today, when I explained that that a option that might become necessary in his case is medication over objection, and an intramuscular form, the patient said that he understood and that he would try medications that I prescribe. His initial preference would be olanzapine, but because olanzapine is not available in a long acting depot form, we would first like to try aripiprazole. He indicates that he is taken aripiprazole in the past and has been able to tolerate it, although he does not believe that it has been particularly helpful. -A trial dose of aripiprazole 15 mg by mouth, as a one-time dose, has been ordered and he assessed for efficacy. 02/28 -Appears to be tolerating initiation of Abilify so far. Remains delusional, paranoid. May consider further titration tomorrow -Aricept discontinued at patient's request on 02/27/2019. The medication has not been demonstrated to be efficacious for cognitive impairment associated with long-standing schizophrenia however we should be vigilant for slowing of mentation following discontinuation. 03/01 Patient fixated and irrational regarding access to clothing item as above today. Hospital environment becoming incorporated and delusions. Consider possibility that the aripiprazole is contributing to activation. We will increase to 20 mg tomorrow and also start Risperdal 1 mg p.o. twice daily as as needed. 03/02 - Continue with aripiprazole at 20mg daily, consider need for further titration - if tolerating and effective, eventual plan will be for conversion to Abilify Maintena - Pt has not yet utilized risperidone 03/03 - Increase aripiprazole to 25mg (equivalent to 30mg pill) and change to liquid formulation to decrease risk of cheeking/nonadherence, as patient does not believe he needs medication and had been noncompliant prior to hospitalization. - Fasting glucose and lipid profile ordered for tomorrow for monitoring on an atypical antipsychotic. - Private room due to psychosis, agitation, and inappropriate disrobing/sexual behavior. - Meeting with [facility] and [facility] staff when patient able to tolerate. 03/04 - Continue aripiprazole 25mg liquid (30mg pill equivalent) and continue to observe for improvement in thought process/content - consider conversion to Maintena if effective, versus trial of another agent if improvement remains limited - Fasting labs reviewed - all values WNL - Continue medically necessary private room - Request meeting with [facility] staff, in order to obtain details about patient's proximity to baseline 03/05 -Patient refusing liquid aripiprazole, but agrees to take the pill: Ordered 30 mg daily. -Schedule meeting with his case manager specialist, CRR and psych rehab staff. Consider involuntary outpatient commitment at the time of discharge. 03/06 -The patient has improved in that he is more reality based at this point. He continues to harbor fixed, systematized delusions, but is generally able to focus on reality based topics. -Although the patient tells me that he does not feel that aripiprazole has been effective, he is able to accept my opinion in the opinion of the staff that he has improved in response to aripiprazole. -The patient's main objection to aripiprazole oral solution is that he does not like the way it tastes, and within this context, he tells us that he is willing to accept Abilify Maintenaand requests that it be injected into his buttock. Abilify Maintena 300 mg IM ordered, and oral Abilify discontinued. We will resume oral Abilify if the patient subsequently changes his mind and refuses the injection. 03/07 resuming abilfiy oral given his refusal of FARAH form of abilify 03/08 is taking abilify po form but refusing abilify maintena form. advise clos e monitoring for potential of checking given pt's tendency to not want to take medications. 03/09 -The patient is flatly refusing to take aripiprazole in the form of Abilify Maintena. He is also been hesitant to take oral Abilify, but has been doing so. -The patient's lack of cooperation is thought possibly to be related to an un-expressed desire to not be discharged back to the community. He told me today that he left his meeting with his community providers after a few seconds because "just the side of them made me extremely anxious. My pulse elevated to 140." Later, he told me that he was still anxious about it and his pulse was "still around 130." The patient allowed me to take his pulse, and it was approximately 76. At that point he said, "did I say pulse? I meant systolic b lood pressure." And when I pointed out that his systolic blood pressure of 130 is not considered to be a particular concern, he said "I mean diastolic." -Our hope had been that the patient would agree to accept a Depo form of medication. He was refusing Haldol Decanoate because of various side effects. Risperidone constant was ruled out as a first-line Depo medication because of the frequency of administration (the patient tends to get into power struggles over medications) and because he says that he is sensitive to "big needles." Invega would be an option, but currently the patient is being so uncooperative that our concern would be that he would cheek the oral tablets that we would have to give him first. Accordingly, the new strategy will be to discontinue Abilify, and resume olanzapine with olanzapine IM over objection if necessary. We will begin the olanzapine Zydis 20 mg at bedtime 03/10 -The patient took the prescribed dose of olanzapine Zydis 20 mg at bedtime last night. Today, he tells me that it "did not help at all." However, staff report that he has been somewhat more agreeable, more pleasant, and less paranoid today. -As he has with other providers, today he told me that I should have given him olanzapine 5 mg "to start", and I explained that he was already on olanzapine 20 mg when he came into the hospital and we know that he is able to tolerate that dose. He tells me that he did, in fact tolerate the dose and is not aware of any side effects, but, somewhat illogically, insisted that the dose was "too high for a starting dose." 03/11 - Continue current medication regimen at this time - olanzapine 20mg daily - Encourage participation in the milieu and in group programming as tolerated 03/12 -Continue current medication regimen. The patient's condition has not yet improved. -The patient does participate in select groups, but often tends to be disruptive. 03/13 -Today, the patient seems to be somewhat more cooperative and less frankly delusional. It was possible to engage in a mostly reality based conversation for 5 or 10 minutes at a time. Also, although he was unhappy with me when I refused to provide him with a dose of Valium for anxiety, he was able to remain pleasant and calm at this time, did not storm from the room." 03/14 and 03/15 -no change in medication will work on therapeutic alliance given patient is not participating 03/16 -304 involuntary commitment granted. -Patient remains completely uncooperative with treatment, refused his Zyprexa Zydis last evening, but then ultimately took it before he received the injection. I have a high suspicion for cheeking of antipsychotic medication, and we will continue to be vigilant with mouth checks, and work towards a long- acting injectable. 03/17 -Patient has been on Zyprexa 20 mg at bedtime for 1 week, with limited response. He is refusing to discuss other medication options. Per records, he has been prescribed up to 30 mg olanzapine in the past, so will increase his dose to this previously tolerated dose, as it is 1 of the few medications he has been willing to take. Continue IM backup for refusal, and Zyprexa Zydis formulation to decrease risk of cheeking. He is not compliant with mouth checks, but have asked staff to try to observe him for 10 minutes after taking the Zydis to ensure he is not spitting it out before it dissolves. 03/18 -Continue Zyprexa Zydis 30 mg at bedtime with IM backup. Consider switch to a different medication (?oral paliperidone with IM backup) if irritability and agitation continues. He has tried virtually every atypical antipsychotic and reports none of them were effective (although some trials were short due to nonadherence) and has a history of dystonia on haloperidol. Clozapine would be a reasonable choice, but he has been unwilling to even discuss medication options. -Consider some component of cognitive decline which could be contributing to his worsening presentation and will need to be monitored and worked up further once he is more psychiatrically stable. -Refer to [facility] in the event that he does not improve and long-term inpatient treatment is needed. 03/19 - Proceed with [facility] referral. 03/20 - Continue current medication regimen; patient refused EKG and CXR yesterday - refused again today - Continue attempts to gather information to make a referral to [facility] 03/23 - Proceed with [facility] referral - patient has refused EKG and CXR for multiple attempts. We will send most recent tests available - Continue current medication regimen at this time 03/24 -Attempted to hold diversion meeting with his outpatient [facility], long-term director, and the [facility] MH/ID; patient refused to attend or participate in the meeting. 03/25 - 03/26 - Continue treatment plan as above - no change in patient's condition and he remains unwilling to participate meaningfully in treatment - Continue with [facility] referral 03/27 -The patient has been informed that the plan at this point is to transfer him to [facility] for long-term inpatient psychiatric treatment, given his refusal to adhere with treatment and his associated behaviors in the community when not adherent with psychiatric treatment. -The patient continues to refuse mouth checks after given dosages of Zyprexa Zydis, and there is some question regarding whether he is actually ingesting this medication. He also would not cooperate with laboratory testing. -There has been a question regarding the patient's cognitive functions, and prior to admission he had been taking Aricept. When he does cooperate with this, I have not seen evidence of any substantial cognitive impairment. He may have mild cognitive impairment, but does not fully cooperate with formal cognitive assessment. He easily recalls the names of his providers, the names of the medications he is taking, the names of the various infectious agents that he believes are causing some of his psychiatric symptoms, the names of certain chemicals that he believes will rid him of the reference to infections, and is able to discuss current events such as recent news items. His assertion that he wants to return to his apartment in the community seems belied by his steadfast refusal to cooperate with those interventions I would make it possible for him to return, and there is some suspicion that although the patient remains floridly psychotic he may also be intentionally sabotaging discharge. 03/28 - 03/30 -There is been no private branch exchange service adviser the past 2 weeks, and long-term inpatient treatment at the [facility] is indicated. 03/31 - Continue current medication regimen - Pt briefly verbalized willingness for FARAH, but was not agreeable to medication adjustments to allow for this to be possible - If he should change his mind; recommendation is for trial of Invega orally to establish tolerability, then consideration for Invega Sustenna - unwilling for this today 04/01 - 04/03 - Continue current medication regimen - Continues to refuse FARAH, will continue discussion daily as this is the reported preference of his CRR 04/04 -Questionable positive PPD measuring 13 mm but history of confinement places him at higher risk. Patient refused chest x-ray today but we will reapproach. No active symptoms of infection. Order for sputum culture and smear today for confirmation. 04/05 -PPD now appears negative. Would suggest follow through with sputum smear and culture for confirmation as previously ordered -Continue treatment plan as above 04/06 - PPD reportedly negative, patient unable to follow-up with sputum smear - therefore discontinued - Continue medication regimen as above - unwilling to discuss conversion to an FARAH - Meeting today with representation from [facility] to discuss discharge planning 04/07 - Continue medication regimen as above - remains unwilling to discuss changes - Additional meeting with CRR and CM scheduled for next week - We have been regularly assessing patient's condition and appropriateness to go outside since his 30-day treatment plan review. As patient continues to be unwilling to participate in a meaningful conversation with providers regarding his condition, we continue to be unable to determine if he is appropriate to be taken off the unit - therefore will await ability to discuss the topic in a meaningful way prior to making this determination. Will continue regular evaluation. 04/08 - 04/12 - Continue current medication regimen, as patient unwilling to discuss changes - Attempted again to determine if appropriate to go outside, patient unwilling to participate in conversation despite being told the goal of allowing him to go outside - Meeting with CM and CRR director scheduled for 04/13 at 1030 04/13 - Continue Zyprexa 30mg daily - unwilling to engage in conversation to discuss changes - Remains unwilling to engage in conversation to determine if he is appropriate to go outside, he has been made aware this is a possibility for him - Meeting for attempted diversion resulted in decision to no longer hold patient's [facility] bed, [facility] admission is supported based on little to no improvement since admission and limited willingness to engage in conversations regarding medication adjustments - We have been asked to attempt to get a QuantiFERON-TB Gold Plus test, despite negative PPD reading within acceptable timeframe - pt unwilling to engage in conversation to obtain consent, further indicating why long-term inpatient psychiatric hospitalization is necessary. Will continue to attempt to gain consent for this testing to be completed 04/15 -The patient is slightly more communicative today and that he does answer at least one question which was whether he would be in agreement if we offered him a drug holiday from olanzapine. His response was in the affirmative.. He also said "thank you." -The patient continues to appear suspicious and he clearly is angry at and unwilling to cooperate with staff. He is particularly bumptious with individuals who he sees as not fully trained and fully qualified. -The plan remains transfer to the [facility] for long-term psychiatric care. Our hope remains that we will be able to divert the patient from the [facility], but the patient, as noted above, remains uncommunicative and resistant. Perhaps contributing to the patient's obvious anger and distress is the fact that he has learned this week that his residential program is unwilling to allow him to return and has stopped holding his bed for other individuals. 04/16 - Continue current treatment plan, which includes holiday from olanzapine as a rapport building attempt, and due to concerns that he is more irritable and resistant to treatment - which is obviously not beneficial for his overall con dition. - Attempted to communicate with the patient today via written/printed text - will add addendum to this note if patient was willing to complete the sheet and respond to questions 04/21 -Patient remains uncooperative and unwilling to participate in interviews, but has been out of his room more and attending some groups. He remains unwilling to discuss treatment options, including antipsychotic medication. 04/22 - Patient remains unwilling for medications, but is interacting with peers appropriately and attending groups. Will try discontinuing private room and placing him with a roommate, is perhaps increased socialization will be therapeutic for him. 04/23 -no change, patient still unwilling for medications(other than marijuana and benzos) (2) Substance abuse: 02/25 - Pt has reported history of substance abuse, and recommendation has consistently been for avoidance of substances with significant abuse potential. - PDMP queried - most recent prescriptions below - lorazepam 0.5mg #60 tabs for 30 day supply - Dr. Alves - filled 02/12/2019 - alprazolam 0.5mg #90 tabs for 30 day supply - Dr. Lopez - filled 01/16/2019 - temazepam 30mg #30 caps for 30 day supply - Dr. Lopez - filled 01/16/2019 - Will continue lorazepam 0.5mg BID prn on admission, as only medication that is seemingly active - toxicology screen is negative for benzodiazepines, which questions if he has been taking the medication appropriately - Ideally will taper and discontinue the lorazepam, as recommendation remains that substances with abuse potential be avoided 02/26 -The patient's outpatient providers, during a meeting this morning, report that the patient tends to successfully convince physicians to prescribe benzodiazepines for him and that, in the past, he has abused him to the degree that he is practically obtunded. 02/27 -A repeat check of the PDMP reveals that the patient is consistently being prescribed lorazepam 0.5 mg twice daily (number 60/month) by a Dr. Brent Alves. He is also being prescribed alprazolam 0.[address] mg [address] Jeff Lopez, with the most recent previous prescription of alprazolam being on 01/16/[address] Lopez also prescribed temazepam 30 mg capsules #30 on 01/16/2019. According to his residential providers, no temazepam capsules were found among the patient's belongings. His most recent prescription for lorazepam 0.5 mg tablets was filled on 02/12/2019. 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 In the past, he reportedly has used clonazepam and temazepam. -I advised the patient that because of his history of misuse of benzodiazepines we would not be prescribing benzodiazepines during his hospital stay. An as needed order for lorazepam has not been used during hospital stay, and I discontinued the order today. 03/02 - Will need to coordinate care with his PCP and outpatient psychiatrist prior to discharge regarding the above. 03/04 - Charge nurse spoke with the above offices regarding concern for continued benzodiazepine prescriptions - Records will be faxed to their offices on discharge, as all benzodiazepines were discontinued during this hospitalization 03/06 -The patient did not request benzodiazepines and did not complain of anxiety today. I suggested to him that perhaps Abilify is also helping with anxiety in his case, and he responded by saying "perhaps." 03/09 -Today, the patient is insisting that what he needs is "benzodiazepines," and explains that the reason he "needs" benzodiazepines is that he has "benzodiazepine receptors," and that he is the only medications that work. He is unable to process warnings about the risks of benzodiazepines in the elderly, including increased risk of falls and mortality. Clearly, the patient is seeking benzodiazepines and has no insight into the associated risks. He also insists that he has never had trouble with benzodiazepines in the past, although there is well-documented of this. 03/10 -Today, the patient repeated his insistence that he needs benzodiazepines and that benzodiazepines are the only medications that work because he has "benzodiazepine receptors." After being told that everyone has central nervous system receptors to which benzodiazepines may attach, he replied, "That may be, but some of people need to have benzodiazepines forearm benzodiazepine receptors. 03/12 -Continues to request Benzodiazepines. 03/13 -Requests Valium for his "benzodiazepines receptors." 03/27 -Refuses to cooperate with assessment today, but has recently told staff that he needs "either Valium or Ativan." -The patient apparently has no working insight into his history of abuse of prescription medications (benzodiazepines). 04/15 -The patient has not reference to request for benzodiazepines recently. However, the context is that he has not communicated much of anything directly, a other than the occasional need for self-care items. (3) Hypertension: 02/25 - Continue home dose of clonidine 0.1mg qHS 03/01 Watch mildly elevated blood pressures as patient has been refusing clonidine 03/03 - BP normal past two days, and low today 03/10 -The patient's blood pressure today was 136/73. His pulse was 71 03/14 - elevated BP it is not urgent but will need monitored. 03/15 - BP WNL 03/26 - BP continues to be WNL 04/02 - BP remains within normal limits; continue daily vitals per standard admission order set - Will consider acute phase of this problem resolved at this time Risk Factors Assessment Male: Yes : Yes Do You Have Access To A Gun?: No Health Problems: Yes Mental Health Diagnoses: Yes Substance Use Disorders: Yes Protective Factors Assessment Baptism Beliefs: No : No Responsible for Young Children: No Employed: No Stable Relationships: No Supportive Family: No Good Rapport with Provider: No Absence of Any Risk Factors Above: No Interval History Identifying Information SCOTT ROBERTO is a 73-year-old M who currently lives at a [facility] in [place], has a history of schizophrenia, and is known to our unit from several previous admissions, most recently in 09/2016. He was admitted on 02/24/19 16:40 on a 302 involuntary commitment for exacerbation of schizophrenia and heightened paranoia resulting in belief he needed to hide in a dumpster to seek refuge from impending bombings. He was found by [facility] staff and brought to the ED by police, and is on a 304 involuntary commitment as of 03/16/19. He has been referred to [facility] for residential treatment. Chief Complaint "I need some temazepam". Review of Systems Sleep Information Total Hours of Sleep: 7.25 Sleep Comments: pt on q-15 minute checks Meal Information Percent Meal Consumed - Breakfast: 100 Percent Meal Consumed - Lunch: 100 Percent Meal Consumed - Dinner: 100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
[2019-04-23] MEDS: MAGNESIUM OXIDE 400 MG TAB PO SCH ×2 (08:18→09:14)
[2019-04-23] MEDS: MULTIVITAMIN TAB PO SCH ×2 (08:18→09:14)
[2019-04-23] MEDS: CYANOCOBALAMIN 500 MCG TABLET (VITAMIN B-12) PO SCH ×2 (08:18→09:15)
[2019-04-23] MEDS: NICOTINE 14 MG/24 HR PATCH TD SCH ×2 (08:18→09:15)
[2019-04-23] MEDS ORDERED: ALUMINUM/MAGNESIUM SUSP 30 ML UDC PO PRN (08:18)
[2019-04-23] MEDS ORDERED: BENZTROPINE MESYLATE 0.5 MG TAB PO PRN (08:18)
[2019-04-23] MEDS ORDERED: BISMUTH SUBSALICYLATE PER ML OMNICELL CHARGE PO PRN (08:18)
[2019-04-23] MEDS: PYRIDOXINE HCL 50 MG TAB PO SCH ×2 (08:18→09:15)
[2019-04-23] MEDS ORDERED: MAGNESIUM HYDROXIDE SUSP 30 ML UDC PO PRN (08:20)
[2019-04-23] MEDS ORDERED: SODIUM CHLORIDE 0.65% NA SOLN 45 ML (OCEAN) PRN (08:20)
[2019-04-23] MEDS ORDERED: OLANZapine 10 MG/2.1 ML SDV IM PRN (08:20)
[2019-04-23] MEDS ORDERED: RISPERIDONE ODT 1MG PO PRN (08:20)
[2019-04-23] MEDS: cloNIDine HCL 0.1 MG TAB PO SCH (20:39)
[2019-04-24] MEDS: MAGNESIUM OXIDE 400 MG TAB PO SCH (07:27)
[2019-04-24] MEDS: MULTIVITAMIN TAB PO SCH (07:27)
[2019-04-24] MEDS: CYANOCOBALAMIN 500 MCG TABLET (VITAMIN B-12) PO SCH (07:28)
[2019-04-24] MEDS: PYRIDOXINE HCL 50 MG TAB PO SCH (07:28)
[2019-04-24] MEDS: NICOTINE 14 MG/24 HR PATCH TD SCH (07:29)
[2019-04-24] MEDS ORDERED: diazePAM 5 MG TABLET PO ONE (09:27)
--- NOTE | 2019-04-24 15:34 | Psychiatric Progress Note ---
Date of Service April 24, 2019 Impression / Recommendations Impression Patient remains uncooperative, will not speak to clinicians, nor take medication. He is however coming out of his room more and attending some groups. His [facility] bed was relinquished due to ongoing psychotic symptoms and unwillingness to engage in treatment, and although he has been accepted at the [facility], we still do not have a bed date. Today, he was briefly pleasant and cooperative with the psychiatrist, but this apparent improvement was minimal and short lived. 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 Unfortunately, the opposite occurred. After receiving a dose of diazepam 5 mg by mouth the patient con sistently and, somewhat rudely, refused to speak to the prescribing physician. Previously, he had refused to be interviewed by saying simply, "I do not want to talk." Today, he angrily growled to "get out!" On at least 2 occasions in which the physician attempted to interview him. It would appear that benzodiazepines may actually may be somewhat disinhibiting for the patient. The problem is that we have not seen clear evidence that the patient responds favorably to any medications. Historical information provided by other providers do indicate improvement with medication such as olanzapine at higher dosages. However, we witness no such improvement after a reasonable trial here in the hospital. The current plan remains for the patient to be transferred for long-term psychiatric hospitalization, given his inability to cooperate with treatment, given his inability to attend his own physical needs without the availability of the full spectrum of psychiatric services at the inpatient level of care, and what appears to be ongoing psychosis and paranoia. (1) Schizophrenia: the interview.02/25 - Continue home medication regimen - as refusing offerings of his antipsychotic, will likely require olanzapine IM (or alternative agent) over objection, given clear evidence of paranoia and delusional thought process - previously stabilized on this medication - Pt agreeable to taking all other medications, with exception of antipsychotic as mentioned above - Admitted to a locked inpatient behavioral health unit, on q15 minute safety checks - Encourage medication initiation/adjustments as indicated - Encourage participation in group and recreational therapies - Gather collateral information from outpatient providers and [facility] s taff - Suggest family meeting to involve outpatient supports in safety planning - Reschedule appropriate aftercare appointments 02/26 -Patient indicates willingness to sign a release for the [facility], will get collateral from their staff. -File for 303 involuntary commitment to be held tomorrow. -Recommend medications over objection, with an IM Zyprexa backup for refusal of oral medication. Involve outpatient treatment team to discuss ways to improve stability and compliance; consider long-acting injectable antipsychotic. -Order fasting labs for monitoring on an atypical antipsychotic once patient is more cooperative. 02/27 -The patient was retrained at his involuntary commitment hearing (303) this morning. -He has continuously and consistently refused psychiatric medications to date. However, today, when I explained that that a option that might become necessary in his case is medication over objection, and an intramuscular form, the patient said that he understood and that he would try medications that I prescribe. His initial preference would be olanzapine, but because olanzapine is not available in a long acting depot form, we would first like to try aripiprazole. He indicates that he is taken aripiprazole in the past and has been able to tolerate it, although he does not believe that it has been particularly helpful. -A trial dose of aripiprazole 15 mg by mouth, as a one-time dose, has been ordered and he assessed for efficacy. 02/28 -Appears to be tolerating initiation of Abilify so far. Remains delusional, paranoid. May consider further titration tomorrow -Aricept discontinued at patient's request on 02/27/2019. The medication has not been demonstrated to be efficacious for cognitive impairment associated with long-standing schizophrenia however we should be vigilant for slowing of mentation following discontinuation. 03/01 Patient fixated and irrational regarding access to clothing item as above today. Hospital environment becoming incorporated and delusions. Consider possibility that the aripiprazole is contributing to activation. We will increase to 20 mg tomorrow and also start Risperdal 1 mg p.o. twice daily as as needed. 03/02 - Continue with aripiprazole at 20mg daily, consider need for further titration - if tolerating and effective, eventual plan will be for conversion to Abilify Maintena - Pt has not yet utilized risperidone 03/03 - Increase aripiprazole to 25mg (equivalent to 30mg pill) and change to liquid formulation to decrease risk of cheeking/nonadherence, as patient does not believe he needs medication and had been noncompliant prior to hospitalization. - Fasting glucose and lipid profile ordered for tomorrow for monitoring on an atypical antipsychotic. - Private room due to psychosis, agitation, and inappropriate disrobing/sexual behavior. - Meeting with [facility] and [facility] staff when patient able to tolerate. 03/04 - Continue aripiprazole 25mg liquid (30mg pill equivalent) and continue to observe for improvement in thought process/content - consider conversion to Maintena if effective, versus trial of another agent if improvement remains limited - Fasting labs reviewed - all values WNL - Continue medically necessary private room - Request meeting with CR[facility] staff, in order to obtain details about patient's proximity to baseline 03/05 -Patient refusing liquid aripiprazole, but agrees to take the pill: Ordered 30 mg daily. 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 Consider involuntary outpatient commitment at the time of discharge. 03/06 -The patient has improved in that he is more reality based at this point. He continues to harbor fixed, systematized delusions, but is generally able to focus on reality based topics. -Although the patient tells me that he does not feel that aripiprazole has been effective, he is able to accept my opinion in the opinion of the staff that he has improved in response to aripiprazole. -The patient's main objection to aripiprazole oral solution is that he does not like the way it tastes, and within this context, he tells us that he is willing to accept Abilify Maintenaand requests that it be injected into his b uttock. Abilify Maintena 300 mg IM ordered, and oral Abilify discontinued. We will resume oral Abilify if the patient subsequently changes his mind and refuses the injection. 03/07 resuming abilfiy oral given his refusal of FARAH form of abilify 03/08 is taking abilify po form but refusing abilify maintena form. advise close monitoring for potential of checking given pt's tendency to not want to take medications. 03/09 -The patient is flatly refusing to take aripiprazole in the form of Abilify Maintena. He is also been hesitant to take oral Abilify, but has been doing so. -The patient's lack of cooperation is thought possibly to be related to an un-expressed desire to not be discharged back to the community. He told me today that he left his meeting with his community providers after a few seconds because "just the side of them made me extremely anxious. My pulse elevated to 140." Later, he told me that he was still anxious about it and his pulse was "still around 130." The patient allowed me to take his pulse, and it was approximately 76. At that point he said, "did I say pulse? I meant systolic blood pressure." And when I pointed out that his systolic blood pressure of 130 is not considered to be a particular concern, he said "I mean diastolic." -Our hope had been that the patient would agree to accept a Depo form of medication. He was refusing Haldol Decanoate because of various side effects. Risperidone constant was ruled out as a first-line Depo medication because of the frequency of administration (the patient tends to get into power struggles over medications) and because he says that he is sensitive to "big needles." Invega would be an option, but currently the patient is being so uncooperative that our concern would be that he would cheek the oral tablets that we would have to give him first. Accordingly, the new strategy will be to discontinue Abilify, and resume olanzapine with olanzapine IM over objection if necessary. We will begin the olanzapine Zydis 20 mg at bedtime 03/10 -The patient took the prescribed dose of olanzapine Zydis 20 mg at bedtime last night. Today, he tells me that it "did not help at all." However, staff report that he has been somewhat more agreeable, more pleasant, and less paranoid today. -As he has with other providers, today he told me that I should have given him olanzapine 5 mg "to start", and I explained that he was already on olanzapine 20 mg when he came into the hospital and we know that he is able to tolerate that dose. He tells me that he did, in fact tolerate the dose and is not aware of any side effects, but, somewhat illogically, insisted that the dose was "too high for a starting dose." 03/11 - Continue current medication regimen at this time - olanzapine 20mg daily - Encourage participation in the milieu and in group programming as tolerated 03/12 -Continue current medication regimen. The patient's condition has not yet improved. -The patient does participate in select groups, but often tends to be disruptive. 03/13 -Today, the patient seems to be somewhat more cooperative and less frankly delusional. It was possible to engage in a mostly reality based conversation for 5 or 10 minutes at a time. Also, although he was unhappy with me when I refused to provide him with a dose of Valium for anxiety, he was able to remain pleasant and calm at this time, did not storm from the room." 03/14 and 03/15 -no change in medication will work on therapeutic alliance given patient is not participating 03/16 -304 involuntary commitment granted. -Patient remains completely uncooperative with treatment, refused his Zyprexa Zydis last evening, but then ultimately took it before he received the injection. I have a high suspicion for cheeking of antipsychotic medication, and we will continue to be vigilant with mouth checks, and work towards a long- acting injectable. 03/17 -Patient has been on Zyprexa 20 mg at bedtime for 1 week, with limited response. He is refusing to discuss other medication options. Per records, he has been prescribed up to 30 mg olanzapine in the past, so will increase his dose to this previously tolerated dose, as it is 1 of the few medications he has been willing to take. Continue IM backup for refusal, and Zyprexa Zydis formulation to decrease risk of cheeking. He is not compliant with mouth checks, but have asked staff to try to observe him for 10 minutes after taking the Zydis to ensure he is not spitting it out before it dissolves. 03/18 -Continue Zyprexa Zydis 30 mg at bedtime with IM backup. Consider switch to a different medication (?oral paliperidone with IM backup) if irritability and agitation continues. He has tried virtually every atypical antipsychotic and reports none of them were effective (although some trials were short due to nonadherence) and has a history of dystonia on haloperidol. Clozapine would be a reasonable choice, but he has been unwilling to even discuss medication options. -Consider some component of cognitive decline which could be contributing to his worsening presentation and will need to be monitored and worked up further once he is more psychiatrically stable. -Refer to [facility] in the event that he does not improve and long-term inpatient treatment is needed. 03/19 - Proceed with [facility] referral. 03/20 - Continue current medication regimen; patient refused EKG and CXR yesterday - refused again today - Continue attempts to gather information to make a referral to [facility] 03/23 - Proceed with [facility] referral - patient has refused EKG and CXR for multiple attempts. We will send most recent tests available - Continue current medication regimen at this time 03/24 -Attempted to hold diversion meeting with his outpatient [facility], [facility] director, and the [facility] MH/ID; patient refused to attend or participate in the meeting. 03/25 - 03/26 - Continue treatment plan as above - no change in patient's condition and he remains unwilling to participate meaningfully in treatment - Continue with [facility] referral 03/27 -The patient has been informed that the plan at this point is to transfer him to [facility] for long-term inpatient psychiatric treatment, given his refusal to adhere with treatment and his associated behaviors in the community when not adherent with psychiatric treatment. -The patient continues to refuse mouth checks after given dosages of Zyprexa Zydis, and there is some question regarding whether he is actually ingesting this medication. He also would not cooperate with laboratory testing. -There has been a question regarding the patient's cognitive functions, and prior to admission he had been taking Aricept. When he does cooperate with this, I have not seen evidence of any substantial cognitive impairment. He may have mild cognitive impairment, but does not fully cooperate with formal cognitive assessment. He easily recalls the names of his providers, the names of the medications he is taking, the names of the various infectious agents that he believes are causing some of his psychiatric symptoms, the names of certain chemicals that he believes will rid him of the reference to infections, and is able to discuss current events such as recent news items. His assertion that he wants to return to his apartment in the community seems belied by his steadfast refusal to cooperate with those interventions I would make it possible for him to return, and there is some suspicion that although the patient remains floridly psychotic he may also be intentionally sabotaging discharge. 03/28 - 03/30 -There is been no change lead the past 2 weeks, and long-term inpatient treatment at the [facility] is indicated. 03/31 - Continue current medication regimen - Pt briefly verbalized willingness for FARAH, but was not agreeable to medication adjustments to allow for this to be possible - If he should change his mind; recommendation is for trial of Invega orally to establish tolerability, then consideration for Invega Sustenna - unwilling for this today 04/01 - 04/03 - Continue current medication regimen - Continues to refuse FARAH, will continue discussion daily as this is the reported preference of his CRR 04/04 -Questionable positive PPD measuring 13 mm but history of confinement places him at higher risk. Patient refused chest x-ray today but we will reapproach. No active symptoms of infection. Order for sputum culture and smear today for confirmation. 04/05 -PPD now appears negative. Would suggest follow through with sputum smear and culture for confirmation as previously ordered -Continue treatment plan as above 04/06 - PPD reportedly negative, patient unable to follow-up with sputum smear - therefore discontinued - Continue medication regimen as above - unwilling to discuss conversion to an FARAH - Meeting today with representation from [facility] to discuss discharge planning 04/07 - Continue medication regimen as above - remains unwilling to discuss changes - Additional meeting with CRR and CM scheduled for next week - We have been regularly assessing patient's condition and appropriateness to go outside since his 30-day treatment plan review. As patient continues to be unwilling to participate in a meaningful conversation with providers regarding his condition, we continue to be unable to determine if he is appropriate to be taken off the unit - therefore will await ability to discuss the topic in a meaningful way prior to making this determination. Will continue regular evaluation. 04/08 - 04/12 - Continue current medication regimen, as patient unwilling to discuss changes - Attempted again to determine if appropriate to go outside, patient unwilling to participate in conversation despite being told the goal of allowing him to go outside - Meeting with CM and CRR director scheduled for 04/13 at 1030 04/13 - Continue Zyprexa 30mg daily - unwilling to engage in conversation to discuss changes - Remains unwilling to engage in conversation to determine if he is appropriate to go outside, he has been made aware this is a possibility for him - Meeting for attempted diversion resulted in decision to no longer hold patient's CRR bed, [facility] admission is supported based on little to no improvement since admission and limited willingness to engage in conversations regarding medication adjustments - We have been asked to attempt to get a QuantiFERON-TB Gold Plus test, despite negative PPD reading within acceptable timeframe - pt unwilling to engage in conversation to obtain consent, further indicating why long-term inpatient psychiatric hospitalization is necessary. Will continue to attempt to gain consent for this testing to be completed 04/15 -The patient is slightly more communicative today and that he does answer at least one question which was whether he would be in agreement if we offered him a drug holiday from olanzapine. His response was in the affirmative.. He also said "thank you." -The patient continues to appear suspicious and he clearly is angry at and unwilling to cooperate with staff. He is particularly bumptious with individuals who he sees as not fully trained and fully qualified. -The plan remains transfer to the [facility] for long-term psychiatric care. Our hope remains that we will be able to divert the patient from the [facility], but the patient, as noted above, remains uncommunicative and resistant. Perhaps contributing to the patient's obvious anger and distress is the fact that he has learned this week that his residential program is unwilling to allow him to return and has stopped holding his bed for other individuals. 04/16 - Continue current treatment plan, which includes holiday from olanzapine as a rapport building attempt, and due to concerns that he is more irritable and resistant to treatment - which is obviously not beneficial for his overall condition. - Attempted to communicate with the patient today via written/printed text - will add addendum to this note if patient was willing to complete the sheet and respond to questions 04/21 -Patient remains uncooperative and unwilling to participate in interviews, but has been out of his room more and attending some groups. He remains unwilling to discuss treatment options, including antipsychotic medication. 04/22 - Patient remains unwilling for medications, but is interacting with peers appropriately and attending groups. Will try discontinuing private room and placing him with a roommate, is perhaps increased socialization will be therapeutic for him. 04/23 -no change, patient still unwilling for medications(other than marijuana and benzos) 04/24 -The patient remains angry, suspicious, and largely uncommunicative. He spoke briefly with the attending psychiatrist today in order to request privileges to go outdoors with staff, and was able to cooperate with a fresh air break, but subsequently was angry, bumptious, and willing to cooperate with asse ssments. (2) Substance abuse: 02/25 - Pt has reported history of substance abuse, and recommendation has consistently been for avoidance of substances with significant abuse potential. - PDMP queried - most recent prescriptions below - lorazepam 0.5mg #60 tabs for 30 day supply - Dr. Alves - filled 02/12/2019 - alprazolam 0.5mg #90 tabs for 30 day supply - Dr. Lopez - filled 01/16/2019 - temazepam 30mg #30 caps for 30 day supply - Dr. Lopez - filled 01/16/2019 - Will continue lorazepam 0.5mg BID prn on admission, as only medication that is seemingly active - toxicology screen is negative for benzodiazepines, which questions if he has been taking the medication appropriately - Ideally will taper and discontinue the lorazepam, as recommendation remains that substances with abuse potential be avoided 02/26 -The patient's outpatient providers, during a meeting this morning, report that the patient tends to successfully convince physicians to prescribe benzodiazepines for him and that, in the past, he has abused him to the degree that he is practically obtunded. 02/27 -A repeat check of the PDMP reveals that the patient is consistently being prescribed lorazepam 0.5 mg twice daily (number 60/month) by a Dr. Brent Alves. He is also being prescribed alprazolam 0.[address] mg [address] Jeff Lopez, with the most recent previous prescription of alprazolam being on 01/16/[address] Lopez also prescribed temazepam 30 mg capsules #30 on 01/16/2019. According to his residential providers, no temazepam capsules were found among the patient's belongings. His most recent prescription for lorazepam 0.5 mg tablets was filled on 02/12/2019. 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 In the past, he reportedly has used clonazepam and temazepam. -I advised the patient that because of his history of misuse of benzodiazepines we would not be prescribing benzodiazepines during his hospital stay. An as needed order for lorazepam has not been used during hospital stay, and I discontinued the order today. 03/02 - Will need to coordinate care with his PCP and outpatient psychiatrist prior to discharge regarding the above. 03/04 - Charge nurse spoke with the above offices regarding concern for continued benzodiazepine prescriptions - Records will be faxed to their offices on discharge, as all benzodiazepines were discontinued during this hospitalization 03/06 -The patient did not request benzodiazepines and did not complain of anxiety today. I suggested to him that perhaps Abilify is also helping with anxiety in his case, and he responded by saying "perhaps." 03/09 -Today, the patient is insisting that what he needs is "benzodiazepines," and explains that the reason he "needs" benzodiazepines is that he has "benzodiazepine receptors," and that he is the only medications that work. He is unable to process warnings about the risks of benzodiazepines in the elderly, including increased risk of falls and mortality. Clearly, the patient is seeking benzodiazepines and has no insight into the associated risks. He also insists that he has never had trouble with benzodiazepines in the past, although there is well-documented of this. 03/10 -Today, the patient repeated his insistence that he needs benzodiazepines and that benzodiazepines are the only medications that work because he has "benzodiazepine receptors." After being told that everyone has central nervous system receptors to which benzodiazepines may attach, he replied, "That may be, but some of people need to have benzodiazepines forearm benzodiazepine receptors. 03/12 -Continues to request Benzodiazepines. 03/13 -Requests Valium for his "benzodiazepines receptors." 03/27 -Refuses to cooperate with assessment today, but has recently told staff that he needs "either Valium or Ativan." -The patient apparently has no working insight into his history of abuse of prescription medications (benzodiazepines). 04/15 -The patient has not reference to request for benzodiazepines recently. However, the context is that he has not communicated much of anything directly, a other than the occasional need for self-care items. 04/24 -Today, the patient repeats his request for benzodiazepines, and insists that he is "supposed" to be taking diazepam 10 mg 3 times a day and temazepam for sleep every night. 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 Unfortunately, the exact opposite seems to have occurred. Not only was the patient was cooperative subsequent to a dose of Valium, he seems to have been disinhibited by it and shouting "get out" or "get away" several times when approached by staff (3) Hypertension: 02/25 - Continue home dose of clonidine 0.1mg qHS 03/01 Watch mildly elevated blood pressures as patient has been refusing clonidine 03/03 - BP normal past two days, and low today 03/10 -The patient's blood pressure today was 136/73. His pulse was 71 03/14 - elevated BP it is not urgent but will need monitored. 03/15 - BP WNL 03/26 - BP continues to be WNL 04/02 - BP remains within normal limits; continue daily vitals per standard admission order set - Will consider acute phase of this problem resolved at this time Risk Factors Assessment Male: Yes : Yes Do You Have Access To A Gun?: No Health Problems: Yes Mental Health Diagnoses: Yes Substance Use Disorders: Yes Protective Factors Assessment Cheondoism Beliefs: No : No Responsible for Young Children: No Employed: No Stable Relationships: No Supportive Family: No Good Rapport with Provider: No Absence of Any Risk Factors Above: No Interval History Identifying Information SCOTT ROBERTO is a 73-year-old M who currently lives at a [facility] in [place], has a history of schizophrenia, and is known to our unit from several previous admissions, most recently in 09/2016. He was admitted on 02/24/19 16:40 on a 302 involuntary commitment for exacerbation of schizophrenia and heightened paranoia resulting in belief he needed to hide in a dumpster to seek refuge from impending bombings. He was found by [facility] staff and brought to the ED by police, and is on a 304 involuntary commitment as of 03/16/19. He has been referred to [facility] for technician terminal and repeater treatment. Chief Complaint "Yes I enjoyed my walk. Now get out!". Review of Systems Sleep Information Total Hours of Sleep: 7.25 Sleep Comments: came out to the kitchen early in the shift for a drink then back to bed and sleep. Meal Information Percent Meal Consumed - Breakfast: 100 Percent Meal Consumed - Lunch: 100 Percent Meal Consumed - Dinner: 100 Nutrition Comment: per meal record Subjective Subjective Patient was seen & assessed and interval progress reviewed with treatment team. I attempted to meet with the patient individually several times throughout the course of the day in order to assess his current mental status, evaluate his response to treatment, coordinate any necessary medication changes with the patient, and address issues and concerns that may arise. Initially, the patient was somewhat welcoming when I approached him. He told me that he wanted to take a walk outside since he had not been outside for such a long time, and I told him that I would arrange for him to go out on the grounds with staff. The patient also told me that he was feeling very anxious and said that he is "supposed to be taking" diazepam 10 mg 3 times a day and temazepam (dose unspecified) at bedtime for insomnia. I offered the patient a trial of diazepam 5 mg, despite the patient's history of benzodiazepine abuse when unmonitored externally, because the patient has remained generally uncooperative with formal psychiatric assessment and has been generally refused to discuss psychiatric symptoms with providers. Unfortunately, the patient's response to a dose of diazepam was the opposite of what had been hoped for and, instead of becoming more pleasant and cooperative, he became more angry and uncooperative. I approached him several times during the balance of the day and he consistently refused to speak with me and ordered me to "get out" several times. His report that he has not been sleeping seems to be contradicted by nursing observation. On the other hand, the patient has been somewhat more cooperative in the milieu and has attended several groups. Physical Exam Psychiatric Orientation: + uncooperative Apperance: appropriately dressed and appropriately groomed Eye Contact: + poor eye contact Motor Behavior: steady gait and station and no abnormal motor movements The patient says little spontaneously, tends to answer questions with 1 or 2 answers, is uncooperative with formal interview and repeatedly orders providers to leave him alone and "get out." Affect: + angry affect The patient refuses to answer questions regarding his mood and simply says "get out" or turns his head away and becomes mute. We are unable to evaluate the patient's thought processes in view of the fact that he has essentially been mute when we attempt to conduct a mental status examinations. The patient will not divulge the content of his thoughts and refuses to cooperate with interviews. The patient has shown no signs of harming thoughts of self-harm. However, he will not respond to questions. The patient has shown no signs of having thoughts of causing physical harm to the person or property of others, and has not engaged in any physically aggressive behavior. However, he will not respond to questions. Hallucinations: + auditory hallucinations (The patient appears to be attending to internal stimuli, but is not communicative.) Estimated Intelligence: + above average estimated intelligence Insight: + severely impaired insight Judgement: + severely impaired judgement Vital Signs (Past 24 Hours) Last Vital Signs Temp 36.8 C 04/24/19 06:42 Pulse 77 04/24/19 06:42 Resp 18 04/24/19 06:42 BP 112/74 04/24/19 06:42 Pulse Ox 96 02/24/19 08:10 Results & Data Current Inpatient Medications Current Inpatient Medications: Current Inpatient Medications Acetaminophen (Tylenol) 650 mg PO Q4H PRN PRN Reason: Headache or Minor Fever Stop: 05/23/19 08:14 Al Hydrox/Mg Hydrox/Simethicone (Maalox) 30 ml PO Q4H PRN PRN Reason: GI Upset Stop: 05/23/19 08:14 Benztropine Mesylate (Cogentin) 0.5 mg PO BID PRN PRN Reason: dystonia Stop: 05/23/19 08:14 Bismuth Subsalicylate (Kaopectate) 15 ml PO PRN PRN PRN Reason: Loose Stool Stop: 05/23/19 08:14 Clonidine HCl (Catapres) 0.1 mg PO HS MAG Stop: 05/23/19 21:59 Last Admin: 04/23/19 20:39 Dose: 0.1 mg Documented by: Cyanocobalamin (Vitamin B-12) 500 mcg PO DAILY MAG Stop: 05/23/19 08:59 Last Admin: 04/24/19 07:28 Dose: 500 mcg Documented by: Hydroxyzine HCl (Vistaril) 25 mg PO Q4H PRN PRN Reason: Anxiety Stop: 05/23/19 08:14 Hydroxyzine HCl (Vistaril) 50 mg PO HSZ PRN PRN Reason: Insomnia Stop: 05/23/19 08:14 Magnesium Hydroxide (Milk Of Magnesia) 30 ml PO DAILY PRN PRN Reason: Heartburn Stop: 05/23/19 08:19 Magnesium Oxide (Mag-Ox) 400 mg PO DAILY MAG Stop: 05/23/19 08:59 Last Admin: 04/24/19 07:27 Dose: 400 mg Documented by: Miscellaneous (Remove Nicoderm Patch) 1 ea N/A HS MAG Stop: 05/23/19 21:59 Last Admin: 04/23/19 20:40 Dose: 1 ea Documented by: Multivitamins (Multivitamin Tab) 1 tab PO DAILY MAG Stop: 05/23/19 08:59 Last Admin: 04/24/19 07:27 Dose: 1 tab Documented by: Nicotine (Nicoderm Cq) 14 mg TD QAM MAG Stop: 05/23/19 08:59 Last Admin: 04/24/19 07:29 Dose: Not Given Documented by: Olanzapine (Zyprexa) 10 mg IM HS PRN PRN Reason: Undecided Stop: 05/23/19 08:19 Pyridoxine HCl (Vitamin B-6) 100 mg PO DAILY MAG Stop: 05/23/19 08:59 Last Admin: 04/24/19 07:28 Dose: 100 mg Documented by: Risperidone (Risperdal M) 1 mg PO BID PRN PRN Reason: psychosis Stop: 05/23/19 08:19 Sodium Chloride (Clare Nasal) 1 - 2 sprays NA PRN PRN PRN Reason: Nasal Dryness/Congestion Stop: 05/23/19 08:19 Mental Health & Subst Abuse Tx Therapist Name of Therapist: Sammy Production Mechanic Name of Production Mechanic: Shruti Lopez Phone Number for Production Mechanic: Case Management Appointment Comment: [phone], [place] [address] Post Discharge Appointments Primary Care Physician Name Of Family Doctor: Dr. Lopez Contact Information Discharge Discharge [address]: [address] [place] [id number] CPT Code CPT Code 81077 (1) Schizophrenia Schizophrenia type: paranoid schizophrenia Qualified Code(s): F20.0 - Paranoid schizophrenia (2) Hypertension Hypertension type: essential hypertension Qualified Code(s): I10 - Essential (primary) hypertension
[2019-04-24] MEDS: cloNIDine HCL 0.1 MG TAB PO SCH (21:09)
[2019-04-25] MEDS: MULTIVITAMIN TAB PO SCH (09:02)
[2019-04-25] MEDS: CYANOCOBALAMIN 500 MCG TABLET (VITAMIN B-12) PO SCH (09:02)
[2019-04-25] MEDS: MAGNESIUM OXIDE 400 MG TAB PO SCH (09:02)
[2019-04-25] MEDS: PYRIDOXINE HCL 50 MG TAB PO SCH (09:03)
[2019-04-25] MEDS: NICOTINE 14 MG/24 HR PATCH TD SCH (09:05)
--- NOTE | 2019-04-25 10:32 | Psychiatric Progress Note ---
Date of Service April 25, 2019 Impression / Recommendations Impression Patient remains uncooperative, will not speak to clinicians, nor take medication. He is refusing most groups. He is now tolerating having a roommate while on the unit. His long-term bed was relinquished due to ongoing psychotic symptoms and unwillingness to engage in treatment, and although he has been accepted at the [facility], we still do not have a bed date. Yesterday a trial dose of oral diazepam 5 mg (given in attempt to see if could help settle pt and improve human factors advisor lead to seeming disinhibited and more verbally agitated behavior. The problem is that we have not seen clear evidence that the patient responds favorably to any medications. Historical information provided by other providers do indicate improvement with medication such as olanzapine at higher dosages. However, we have witnessed no such improvement after a reasonable trial here in the hospital. He is also steadfast in his refusal to take such medication. The current plan remains for the patient to be transferred for long-term psychiatric hospitalization, given his inability to cooperate with treatment, given his inability to attend his own physical needs without the availability of the full spectrum of psychiatric services at the inpatient level of care, and what appears to be ongoing psychosis and paranoia. (1) Schizophrenia: the interview.02/25 - Continue home medication regimen - as refusing offerings of his antipsychotic, will likely require olanzapine IM (or alternative agent) over objection, given clear evidence of paranoia and delusional thought process - previously stabilized on this medication - Pt agreeable to taking all other medications, with exception of antipsychotic as mentioned above - Admitted to a locked inpatient behavioral health unit, on q15 minute safety checks - Encourage medication initiation/adjustments as indicated - Encourage participation in group and recreational therapies - Gather collateral information from outpatient providers and long-term staff - Suggest family meeting to involve outpatient supports in safety planning - Reschedule appropriate aftercare appointments 02/26 -Patient indicates willingness to sign a release for the [facility] long-term, will get collateral from their staff. -File for 303 involuntary commitment to be held tomorrow. -Recommend medications over objection, with an IM Zyprexa backup for refusal of oral medication. Involve outpatient treatment team to discuss ways to improve stability and compliance; consider long-acting injectable antipsychotic. -Order fasting labs for monitoring on an atypical antipsychotic once patient is more cooperative. 02/27 -The patient was retrained at his involuntary commitment hearing (303) this morning. -He has continuously and consistently refused psychiatric medications to date. However, today, when I explained that that a option that might become necessary in his case is medication over objection, and an intramuscular form, the patient said that he understood and that he would try medications that I prescribe. His initial preference would be olanzapine, but because olanzapine is not available in a long acting depot form, we would first like to try aripiprazole. He indicates that he is taken aripiprazole in the past and has been able to tolerate it, although he does not believe that it has been particularly helpful. -A trial dose of aripiprazole 15 mg by mouth, as a one-time dose, has been ordered and he assessed for efficacy. 02/28 -Appears to be tolerating initiation of Abilify so far. Remains delusional, paranoid. May consider further titration tomorrow -Aricept discontinued at patient's request on 02/27/2019. The medication has not been demonstrated to be efficacious for cognitive impairment associated with long-standing schizophrenia however we should be vigilant for slowing of mentation following discontinuation. 03/01 Patient fixated and irrational regarding access to clothing item as above today. Hospital environment becoming incorporated and delusions. Consider possibility that the aripiprazole is contributing to activation. We will increase to 20 mg tomorrow and also start Risperdal 1 mg p.o. twice daily as as needed. 03/02 - Continue with aripiprazole at 20mg daily, consider need for further titration - if tolerating and effective, eventual plan will be for conversion to Abilify Maintena - Pt has not yet utilized risperidone 03/03 - Increase aripiprazole to 25mg (equivalent to 30mg pill) and change to liquid formulation to decrease risk of cheeking/nonadherence, as patient does not believe he needs medication and had been noncompliant prior to hospitalization. - Fasting glucose and lipid profile ordered for tomorrow for monitoring on an atypical antipsychotic. - Private room due to psychosis, agitation, and inappropriate disrobing/sexual behavior. - Meeting with [facility] and [facility] staff when patient able to tolerate. 03/04 - Continue aripiprazole 25mg liquid (30mg pill equivalent) and continue to observe for improvement in thought process/content - consider conversion to Maintena if effective, versus trial of another agent if improvement remains limited - Fasting labs reviewed - all values WNL - Continue medically necessary private room - Request meeting with [facility] staff, in order to obtain details about patient's proximity to baseline 03/05 -Patient refusing liquid aripiprazole, but agrees to take the pill: Ordered 30 mg daily. -Schedule meeting with his case loader operator, CRR and psych rehab staff. Consider involuntary outpatient commitment at the time of discharge. 03/06 -The patient has improved in that he is more reality based at this point. He continues to harbor fixed, systematized delusions, but is generally able to focus on reality based topics. -Although the patient tells me that he does not feel that aripiprazole has been effective, he is able to accept my opinion in the opinion of the staff that he has improved in response to aripiprazole. -The patient's main objection to aripiprazole oral solution is that he does not like the way it tastes, and within this context, he tells us that he is willing to accept Abilify Maintenaand requests that it be injected into his buttock. Abilify Maintena 300 mg IM ordered, and oral Abilify discontinued. We will resume oral Abilify if the patient subsequently changes his mind and refuses the injection. 03/07 resuming abilfiy oral given his refusal of FARAH form of abilify 03/08 is taking abilify po form but refusing abilify maintena form. advise close monitoring for potential of checking given pt's tendency to not want to take medications. 03/09 -The patient is flatly refusing to take aripiprazole in the form of Abilify Maintena. He is also been hesitant to take oral Abilify, but has been doing so. -The patient's lack of cooperation is thought possibly to be related to an un-expressed desire to not be discharged back to the community. He told me today that he left his meeting with his community providers after a few seconds because "just the side of them made me extremely anxious. My pulse elevated to 140." Later, he told me that he was still anxious about it and his pulse was "still around 130." The patient allowed me to take his pulse, and it was approximately 76. At that point he said, "did I say pulse? I meant systolic blood pressure." And when I pointed out that his systolic blood pressure of 130 is not considered to be a particular concern, he said "I mean diastolic." -Our hope had been that the patient would agree to accept a Depo form of medication. He was refusing Haldol Decanoate because of various side effects. Risperidone constant was ruled out as a first-line Depo medication because of the frequency of administration (the patient tends to get into power struggles over medications) and because he says that he is sensitive to "big needles." Invega would be an option, but currently the patient is being so uncooperative that our concern would be that he would cheek the oral tablets that we would have to give him first. Accordingly, the new strategy will be to discontinue Abilify, and resume olanzapine with olanzapine IM over objection if necessary. We will begin the olanzapine Zydis 20 mg at bedtime 03/10 -The patient took the prescribed dose of olanzapine Zydis 20 mg at bedtime last night. Today, he tells me that it "did not help at all." However, staff report that he has been somewhat more agreeable, more pleasant, and less paranoid today. -As he has with other providers, today he told me that I should have given him olanzapine 5 mg "to start", and I explained that he was already on olanzapine 20 mg when he came into the hospital and we know that he is able to tolerate that dose. He tells me that he did, in fact tolerate the dose and is not aware of any side effects, but, somewhat illogically, insisted that the dose was "too high for a starting dose." 03/11 - Continue current medication regimen at this time - olanzapine 20mg daily - Encourage participation in the milieu and in group programming as tolerated 03/12 -Continue current medication regimen. The patient's condition has not yet improved. -The patient does participate in select groups, but often tends to be disruptive. 03/13 -Today, the patient seems to be somewhat more cooperative and less frankly delusional. It was possible to engage in a mostly reality based conversation for 5 or 10 minutes at a time. Also, although he was unhappy with me when I refused to provide him with a dose of Valium for anxiety, he was able to remain pleasant and calm at this time, did not storm from the room." 03/14 and 03/15 -no change in medication will work on therapeutic alliance given patient is not participating 03/16 -304 involuntary commitment granted. -Patient remains completely uncooperative with treatment, refused his Zyprexa Zydis last evening, but then ultimately took it before he received the injection. I have a high suspicion for cheeking of antipsychotic medication, and we will continue to be vigilant with mouth checks, and work towards a long- acting injectable. 03/17 -Patient has been on Zyprexa 20 mg at bedtime for 1 week, with limited response. He is refusing to discuss other medication options. Per records, he has been prescribed up to 30 mg olanzapine in the past, so will increase his dose to this previously tolerated dose, as it is 1 of the few medications he has been willing to take. Continue IM backup for refusal, and Zyprexa Zydis formulation to decrease risk of cheeking. He is not compliant with mouth checks, but have asked staff to try to observe him for 10 minutes after taking the Zydis to ensure he is not spitting it out before it dissolves. 03/18 -Continue Zyprexa Zydis 30 mg at bedtime with IM backup. Consider switch to a different medication (?oral paliperidone with IM backup) if irritability and agitation continues. He has tried virtually every atypical antipsychotic and reports none of them were effective (although some trials were short due to nonadherence) and has a history of dystonia on haloperidol. Clozapine would be a reasonable choice, but he has been unwilling to even discuss medication options. -Consider some component of cognitive decline which could be contributing to his worsening presentation and will need to be monitored and worked up further once he is more psychiatrically stable. -Refer to [facility] in the event that he does not improve and long-term inpatient treatment is needed. 03/19 - Proceed with [facility] referral. 03/20 - Continue current medication regimen; patient refused EKG and CXR yesterday - refused again today - Continue attempts to gather information to make a referral to [facility] 03/23 - Proceed with [facility] referral - patient has refused EKG and CXR for multiple attempts. We will send most recent tests available - Continue current medication regimen at this time 03/24 -Attempted to hold diversion meeting with his outpatient [facility], long-term director, and the [facility] MH/ID; patient refused to attend or participate in the meeting. 03/25 - 03/26 - Continue treatment plan as above - no change in patient's condition and he remains unwilling to participate meaningfully in treatment - Continue with [facility] referral 03/27 -The patient has been informed that the plan at this point is to transfer him to [facility] for long-term inpatient psychiatric treatment, given his refusal to adhere with treatment and his associated behaviors in the community when not adherent with psychiatric treatment. -The patient continues to refuse mouth checks after given dosages of Zyprexa Zydis, and there is some question regarding whether he is actually ingesting this medication. He also would not cooperate with laboratory testing. -There has been a question regarding the patient's cognitive functions, and prior to admission he had been taking Aricept. When he does cooperate with this, I have not seen evidence of any substantial cognitive impairment. He may have mild cognitive impairment, but does not fully cooperate with formal cognitive assessment. He easily recalls the names of his providers, the names of the medications he is taking, the names of the various infectious agents that he believes are causing some of his psychiatric symptoms, the names of certain chemicals that he believes will rid him of the reference to infections, and is able to discuss current events such as recent news items. His assertion that he wants to return to his apartment in the community seems belied by his steadfast refusal to cooperate with those interventions I would make it possible for him to return, and there is some suspicion that although the patient remains floridly psychotic he may also be intentionally sabotaging discharge. 03/28 - 03/30 -There is been no blade changer the past 2 weeks, and long-term inpatient treatment at the [facility] is indicated. 03/31 - Continue current medication regimen - Pt briefly verbalized willingness for FARAH, but was not agreeable to medication adjustments to allow for this to be possible - If he should change his mind; recommendation is for trial of Invega orally to establish tolerability, then consideration for Invega Sustenna - unwilling for this today 04/01 - 04/03 - Continue current medication regimen - Continues to refuse FARAH, will continue discussion daily as this is the reported preference of his CRR 04/04 -Questionable positive PPD measuring 13 mm but history of confinement places him at higher risk. Patient refused chest x-ray today but we will reapproach. No active symptoms of infection. Order for sputum culture and smear today for confirmation. 04/05 -PPD now appears negative. Would suggest follow through with sputum smear and culture for confirmation as previously ordered -Continue treatment plan as above 04/06 - PPD reportedly negative, patient unable to follow-up with sputum smear - therefore discontinued - Continue medication regimen as above - unwilling to discuss conversion to an FARAH - Meeting today with representation from [facility] to discuss discharge planning 04/07 - Continue medication regimen as above - remains unwilling to discuss changes - Additional meeting with CRR and CM scheduled for next week - We have been regularly assessing patient's condition and appropriateness to go outside since his 30-day treatment plan review. As patient continues to be unwilling to participate in a meaningful conversation with providers regarding his condition, we continue to be unable to determine if he is appropriate to be taken off the unit - therefore will await ability to discuss the topic in a meaningful way prior to making this determination. Will continue regular evaluation. 04/08 - 04/12 - Continue current medication regimen, as patient unwilling to discuss changes - Attempted again to determine if appropriate to go outside, patient unwilling to participate in conversation despite being told the goal of allowing him to go outside - Meeting with CM and CRR director scheduled for 04/13 at 1030 04/13 - Continue Zyprexa 30mg daily - unwilling to engage in conversation to discuss changes - Remains unwilling to engage in conversation to determine if he is appropriate to go outside, he has been made aware this is a possibility for him - Meeting for attempted diversion resulted in decision to no longer hold patient's CR[facility] bed, [facility] admission is supported based on little to no improvement since admission and limited willingness to engage in conversations regarding medication adjustments - We have been asked to attempt to get a QuantiFERON-TB Gold Plus test, despite negative PPD reading within acceptable timeframe - pt unwilling to engage in conversation to obtain consent, further indicating why long-term inpatient psychiatric hospitalization is necessary. Will continue to attempt to gain consent for this testing to be completed 04/15 -The patient is slightly more communicative today and that he does answer at least one question which was whether he would be in agreement if we offered him a drug holiday from olanzapine. His response was in the affirmative.. He also said "thank you." -The patient continues to appear suspicious and he clearly is angry at and unwilling to cooperate with staff. He is particularly bumptious with individuals who he sees as not fully trained and fully qualified. -The plan remains transfer to the [facility] for long-term psychiatric care. Our hope remains that we will be able to divert the patient from the [facility], but the patient, as noted above, remains uncommunicative and resistant. Perhaps contributing to the patient's obvious anger and distress is the fact that he has learned this week that his residential program is unwilling to allow him to return and has stopped holding his bed for other individuals. 04/16 - Continue current treatment plan, which includes holiday from olanzapine as a rapport building attempt, and due to concerns that he is more irritable and resistant to treatment - which is obviously not beneficial for his overall condition. - Attempted to communicate with the patient today via written/printed text - will add addendum to this note if patient was willing to complete the sheet and respond to questions 04/21 -Patient remains uncooperative and unwilling to participate in interviews, but has been out of his room more and attending some groups. He remains unwilling to discuss treatment options, including antipsychotic medication. 04/22 - Patient remains unwilling for medications, but is interacting with peers appropriately and attending groups. Will try discontinuing private room and placing him with a roommate, is perhaps increased socialization will be therapeutic for him. 04/23 -no change, patient still unwilling for medications(other than marijuana and benzos) 04/24 -The patient remains angry, suspicious, and largely uncommunicative. He sp annie briefly with the attending psychiatrist today in order to request privileges to go outdoors with staff, and was able to cooperate with a fresh air break, but subsequently was angry, bumptious, and willing to cooperate with assessments. 04/25 - valium 5mg dose yesterday appeared to lead to some disinhibited verbally agitated behavior, with the valium dose being discontinued following that one d ose. Pt is fixated on valium and on temazepam. refusal to take other medications with. Handling a roommate decently currently. Pt refusing to attend groups. Limited engagement with peers and staff occurring. no change to plan today (2) Substance abuse: 02/25 - Pt has reported history of substance abuse, and recommendation has consistently been for avoidance of substances with significant abuse potential. - PDMP queried - most recent prescriptions below - lorazepam 0.5mg #60 tabs for 30 day supply - Dr. Alves - filled 02/12/2019 - alprazolam 0.5mg #90 tabs for 30 day supply - Dr. Lopez - filled 01/16/2019 - temazepam 30mg #30 caps for 30 day supply - Dr. Lopez - filled 01/16/2019 - Will continue lorazepam 0.5mg BID prn on admission, as only medication that is seemingly active - toxicology screen is negative for benzodiazepines, which questions if he has been taking the medication appropriately - Ideally will taper and discontinue the lorazepam, as recommendation remains that substances with abuse potential be avoided 02/26 -The patient's outpatient providers, during a meeting this morning, report that the patient tends to successfully convince physicians to prescribe benzodiazepines for him and that, in the past, he has abused him to the degree that he is practically obtunded. 02/27 -A repeat check of the PDMP reveals that the patient is consistently being prescribed lorazepam 0.5 mg twice daily (number 60/month) by a Dr. Brent Alves. He is also being prescribed alprazolam 0.[address] mg [address] Jeff Lopez, with the most recent previous prescription of alprazolam being on 01/16/[address] Lopez also prescribed temazepam 30 mg capsules #30 on 01/16/2019. According to his residential providers, no temazepam capsules were found among the patient's belongings. His most recent prescription for lorazepam 0.5 mg tablets was filled on 02/12/2019. 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 In the past, he reportedly has used clonazepam and temazepam. -I advised the patient that because of his history of misuse of benzodiazepines we would not be prescribing benzodiazepines during his hospital stay. An as needed order for lorazepam has not been used during hospital stay, and I discontinued the order today. 03/02 - Will need to coordinate care with his PCP and outpatient psychiatrist prior to discharge regarding the above. 03/04 - Charge nurse spoke with the above offices regarding concern for continued benzodiazepine prescriptions - Records will be faxed to their offices on discharge, as all benzodiazepines were discontinued during this hospitalization 03/06 -The patient did not request benzodiazepines and did not complain of anxiety today. I suggested to him that perhaps Abilify is also helping with anxiety in his case, and he responded by saying "perhaps." 03/09 -Today, the patient is insisting that what he needs is "benzodiazepines," and explains that the reason he "needs" benzodiazepines is that he has "benzodiazepine receptors," and that he is the only medications that work. He is unable to process warnings about the risks of benzodiazepines in the elderly, including increased risk of falls and mortality. Clearly, the patient is seeking benzodiazepines and has no insight into the associated risks. He also insists that he has never had trouble with benzodiazepines in the past, although there is well-documented of this. 03/10 -Today, the patient repeated his insistence that he needs benzodiazepines and that benzodiazepines are the only medications that work because he has "benzodiazepine receptors." After being told that everyone has central nervous system receptors to which benzodiazepines may attach, he replied, "That may be, but some of people need to have benzodiazepines forearm benzodiazepine receptors. 03/12 -Continues to request Benzodiazepines. 03/13 -Requests Valium for his "benzodiazepines receptors." 03/27 -Refuses to cooperate with assessment today, but has recently told staff that he needs "either Valium or Ativan." -The patient apparently has no working insight into his history of abuse of prescription medications (benzodiazepines). 04/15 -The patient has not reference to request for benzodiazepines recently. However, the context is that he has not communicated much of anything directly, a other than the occasional need for self-care items. 04/24 -Today, the patient repeats his request for benzodiazepines, and insists that he is "supposed" to be taking diazepam 10 mg 3 times a day and temazepam for sleep every night. 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 Unfortunately, the exact opposite seems to have occurred. Not only was the patient was uncooperative subsequent to a dose of Valium, he seems to have been disinhibited by it and shouting "get out" or "get away" several times when approached by staff 04/25 - pt focused on seeking temazepam, or Valium (3) Hypertension: 02/25 - Continue home dose of clonidine 0.1mg qHS 03/01 Watch mildly elevated blood pressures as patient has been refusing clonidine 03/03 - BP normal past two days, and low today 03/10 -The patient's blood pressure today was 136/73. His pulse was 71 03/14 - elevated BP it is not urgent but will need monitored. 03/15 - BP WNL 03/26 - BP continues to be WNL 04/02 - BP remains within normal limits; continue daily vitals per standard admission order set - Will consider acute phase of this problem resolved at this time Risk Factors Assessment Male: Yes : Yes Do You Have Access To A Gun?: No Health Problems: Yes Mental Health Diagnoses: Yes Substance Use Disorders: Yes Protective Factors Assessment Worship Beliefs: No : No Responsible for Young Children: No Employed: No Stable Relationships: No Supportive Family: No Good Rapport with Provider: No Absence of Any Risk Factors Above: No Interval History Identifying Information SCOTT ROBERTO is a 73-year-old M who currently lives at a [facility] in [place], has a history of schizophrenia, and is known to our unit from several previous admissions, most recently in 09/2016. He was admitted on 02/24/19 16:40 on a 302 involuntary commitment for exacerbation of schizophrenia and heightened paranoia resulting in belief he needed to hide in a dumpster to seek refuge from impending bombings. He was found by [facility] staff and brought to the ED by police, and is on a 304 involuntary commitment as of 03/16/19. He has been referred to [facility] for intermediate treatment. Chief Complaint "Not sleeping well". Review of Systems Sleep Information Total Hours of Sleep: 7.75 Sleep Comments: awake at 0555-he came out to the kitchen for a drink Meal Information Percent Meal Consumed - Breakfast: 100 Percent Meal Consumed - Lunch: 100 Percent Meal Consumed - Dinner: 100 Nutrition Comment: per meal record Subjective Subjective Patient was seen & assessed and interval progress reviewed with nursing and social work. Pt focused on benzos (valium, temazepam). He indicate limited sleep of just a few horus a night,w [facility] staff reporting close to 8 hours of sleep. Pt reprots that his jounts are tight and that valum would relax them. He is not willing to take "antipsychotic" medication and reprots feeling better in "all ways" since off them. Pt deneid SI or HI. he deneid AH or VH and denied viewing himself as paranoid in his thinking. he indicated that the rationale for why he is not obtaining benzodizapeines as parto f his treatment plan is "because they work and they don't give things that work." Physical Exam Psychiatric Orientation: alert, oriented x 3 and + guarded superficially cooperative Apperance: appropriately dressed, appropriately groomed and appeared stated age Eye Contact: good eye contact (for the brief encounter) Motor Behavior: steady gait and station and no abnormal motor movements Speech: normal rate/rhythm/volume of speech; no pressured speech Affect: + constricted affect; no anxious affect Mood: no depressed mood, no anxious mood, no irritable mood ("I'm ok") and no angry mood Thought Process: goal directed thought process and + concrete thought process; + thought process not linear or logical and + thought process not clear or coherent Thought Content: + preoccupation, + paranoid, + delusions (no delusional thought content verbalized, though likely still underlying) and + persecution Suicidal Thoughts: denies suicidal thoughts Homicidal Thoughts: denies homicidal thoughts Hallucinations: no auditory hallucinations (The patient appears to be attending to internal stimuli, but is not communicative.), no visual hallucinations, no tactile hallucinations and no gustatory hallucinations Cognition: attention grossly intact and language grossly intact Estimated Intelligence: consistent with education level and + above average estimated intelligence Insight: + severely impaired insight Judgement: + severely impaired judgement Vital Signs (Past 24 Hours) Last Vital Signs Temp 36.6 C 04/25/19 06:29 Pulse 73 04/25/19 06:29 Resp 16 04/25/19 06:29 BP 125/69 04/25/19 06:29 Pulse Ox 96 02/24/19 08:10 Results & Data Current Inpatient Medications Current Inpatient Medications: Current Inpatient Medications Acetaminophen (Tylenol) 650 mg PO Q4H PRN PRN Reason: Headache or Minor Fever Stop: 05/23/19 08:14 Al Hydrox/Mg Hydrox/Simethicone (Maalox) 30 ml PO Q4H PRN PRN Reason: GI Upset Stop: 05/23/19 08:14 Benztropine Mesylate (Cogentin) 0.5 mg PO BID PRN PRN Reason: dystonia Stop: 05/23/19 08:14 Bismuth Subsalicylate (Kaopectate) 15 ml PO PRN PRN PRN Reason: Loose Stool Stop: 05/23/19 08:14 Clonidine HCl (Catapres) 0.1 mg PO HS MAG Stop: 05/23/19 21:59 Last Admin: 04/24/19 21:09 Dose: 0.1 mg Documented by: Cyanocobalamin (Vitamin B-12) 500 mcg PO DAILY MAG Stop: 05/23/19 08:59 Last Admin: 04/25/19 09:02 Dose: 500 mcg Documented by: Hydroxyzine HCl (Vistaril) 25 mg PO Q4H PRN PRN Reason: Anxiety Stop: 05/23/19 08:14 Hydroxyzine HCl (Vistaril) 50 mg PO HSZ PRN PRN Reason: Insomnia Stop: 05/23/19 08:14 Magnesium Hydroxide (Milk Of Magnesia) 30 ml PO DAILY PRN PRN Reason: Heartburn Stop: 05/23/19 08:19 Magnesium Oxide (Mag-Ox) 400 mg PO DAILY [facility] Stop: 05/23/19 08:59 Last Admin: 04/25/19 09:02 Dose: 400 mg Documented by: Miscellaneous (Remove Nicoderm Patch) 1 ea N/A HS [facility] Stop: 05/23/19 21:59 Last Admin: 04/24/19 21:13 Dose: Not Given Documented by: Multivitamins (Multivitamin Tab) 1 tab PO DAILY MAG Stop: 05/23/19 08:59 Last Admin: 04/25/19 09:02 Dose: 1 tab Documented by: Nicotine (Nicoderm Cq) 14 mg TD QAM [facility] Stop: 05/23/19 08:59 Last Admin: 04/25/19 09:05 Dose: 14 mg Documented by: Olanzapine (Zyprexa) 10 mg IM HS PRN PRN Reason: Undecided Stop: 05/23/19 08:19 Pyridoxine HCl (Vitamin B-6) 100 mg PO DAILY MAG Stop: 05/23/19 08:59 Last Admin: 04/25/19 09:03 Dose: 100 mg Documented by: Risperidone (Risperdal M) 1 mg PO BID PRN PRN Reason: psychosis Stop: 05/23/19 08:19 Sodium Chloride ([place] Nasal) 1 - 2 sprays NA PRN PRN PRN Reason: Nasal Dryness/Congestion Stop: 05/23/19 08:19 Mental Health & Subst Abuse Tx Therapist Name of Therapist: Denies Cribber Name of Cribber: Shruti Lopez Phone Number for Cribber: Case Management Appointment Comment: [phone] , [place] [address] Post Discharge Appointments Primary Care Physician Name Of Family Doctor: Dr. Lopez Contact Information Discharge Discharge Address: [address] [place] [address], [place] [address] CPT Code CPT Code 16561 (1) Schizophrenia Schizophrenia type: paranoid schizophrenia Qualified Code(s): F20.0 - Paranoid schizophrenia (2) Hypertension Hypertension type: essential hypertension Qualified Code(s): I10 - Essential (primary) hypertension
[2019-04-25] MEDS: cloNIDine HCL 0.1 MG TAB PO SCH (21:36)
[2019-04-26] MEDS: MAGNESIUM OXIDE 400 MG TAB PO SCH (08:53)
[2019-04-26] MEDS: CYANOCOBALAMIN 500 MCG TABLET (VITAMIN B-12) PO SCH (08:53)
[2019-04-26] MEDS: MULTIVITAMIN TAB PO SCH (08:53)
[2019-04-26] MEDS: PYRIDOXINE HCL 50 MG TAB PO SCH (08:53)
[2019-04-26] MEDS: NICOTINE 14 MG/24 HR PATCH TD SCH (08:54)
--- NOTE | 2019-04-26 11:04 | Psychiatric Progress Note ---
Date of Service April 26, 2019 Impression / Recommendations Impression Patient remains uncooperative, will not speak to clinicians, nor take medication. He is refusing most groups. He is now tolerating having a roommate while on the unit. His snf bed was relinquished due to ongoing psychotic symptoms and unwillingness to engage in treatment, and although he has been accepted at [facility], we still do not have a bed date. 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 The problem is that we have not seen clear evidence that the patient responds favorably to any medications. Historical information provided by other providers do indicate improvement with medication such as olanzapine at higher dosages. However, we have witnessed no such improvement after a reasonable trial here in the hospital. He is also steadfast in his refusal to take such medication. The current plan remains for the patient to be transferred for long-term psychiatric hospitalization, given his inability to cooperate with treatment, given his inability to attend his own physical needs without the availability of the full spectrum of psychiatric services at the inpatient level of care, and what appears to be ongoing psychosis and paranoia. (1) Schizophrenia: the interview.02/25 - Continue home medication regimen - as refusing offerings of his antipsychotic, will likely require olanzapine IM (or alternative agent) over objection, given clear evidence of paranoia and delusional thought process - previously stabilized on this medication - Pt agreeable to taking all other medications, with exception of antipsychotic as mentioned above - Admitted to a locked inpatient behavioral health unit, on q15 minute safety checks - Encourage medication initiation/adjustments as indicated - Encourage participation in group and recreational therapies - Gather collateral information from outpatient providers and snf staff - Suggest family meeting to involve outpatient supports in safety planning - Reschedule appropriate aftercare appointments 02/26 -Patient indicates willingness to sign a release for the [facility] snf, will get collateral from their staff. -File for 303 involuntary commitment to be held tomorrow. -Recommend medications over objection, with an IM Zyprexa backup for refusal of oral medication. Involve outpatient treatment team to discuss ways to improve stability and compliance; consider long-acting injectable antipsychotic. -Order fasting labs for monitoring on an atypical antipsychotic once patient is more cooperative. 02/27 -The patient was retrained at his involuntary commitment hearing (303) this morning. -He has continuously and consistently refused psychiatric medications to date. However, today, when I explained that that a option that might become necessary in his case is medication over objection, and an intramuscular form, the patient said that he understood and that he would try medications that I prescribe. His initial preference would be olanzapine, but because olanzapine is not available in a long acting depot form, we would first like to try aripiprazole. He indicates that he is taken aripiprazole in the past and has been able to tolerate it, although he does not believe that it has been particularly helpful. -A trial dose of aripiprazole 15 mg by mouth, as a one-time dose, has been ordered and he assessed for efficacy. 02/28 -Appears to be tolerating initiation of Abilify so far. Remains delusional, paranoid. May consider further titration tomorrow -Aricept discontinued at patient's request on 02/27/2019. The medication has not been demonstrated to be efficacious for cognitive impairment associated with long-standing schizophrenia however we should be vigilant for slowing of mentation following discontinuation. 03/01 Patient fixated and irrational regarding access to clothing item as above today. Hospital environment becoming incorporated and delusions. Consider possibility that the aripiprazole is contributing to activation. We will increase to 20 mg tomorrow and also start Risperdal 1 mg p.o. twice daily as as needed. 03/02 - Continue with aripiprazole at 20mg daily, consider need for further titration - if tolerating and effective, eventual plan will be for conversion to Abilify Maintena - Pt has not yet utilized risperidone 03/03 - Increase aripiprazole to 25mg (equivalent to 30mg pill) and change to liquid formulation to decrease risk of cheeking/nonadherence, as patient does not believe he needs medication and had been noncompliant prior to hospitalization. - Fasting glucose and lipid profile ordered for tomorrow for monitoring on an atypical antipsychotic. - Private room due to psychosis, agitation, and inappropriate disrobing/sexual behavior. - Meeting with BCM and CR[facility] staff when patient able to tolerate. 03/04 - Continue aripiprazole 25mg liquid (30mg pill equivalent) and continue to observe for improvement in thought process/content - consider conversion to Maintena if effective, versus trial of another agent if improvement remains limited - Fasting labs reviewed - all values WNL - Continue medically necessary private room - Request meeting with CRR staff, in order to obtain details about patient's proximity to baseline 03/05 -Patient refusing liquid aripiprazole, but agrees to take the pill: Ordered 30 mg daily. -Schedule meeting with his corrections caseworker, CRR and psych rehab staff. Consider involuntary outpatient commitment at the time of discharge. 03/06 -The patient has improved in that he is more reality based at this point. He continues to harbor fixed, systematized delusions, but is generally able to focus on reality based topics. -Although the patient tells me that he does not feel that aripiprazole has been effective, he is able to accept my opinion in the opinion of the staff that he has improved in response to aripiprazole. -The patient's main objection to aripiprazole oral solution is that he does not like the way it tastes, and within this context, he tells us that he is willing to accept Abilify Maintenaand requests that it be injected into his buttock. Abilify Maintena 300 mg IM ordered, and oral Abilify discontinued. We will resume oral Abilify if the patient subsequently changes his mind and refuses the injection. 03/07 resuming abilfiy oral given his refusal of FARAH form of abilify 03/08 is taking abilify po form but refusing abilify maintena form. advise close monitoring for potential of checking given pt's tendency to not want to take medications. 03/09 -The patient is flatly refusing to take aripiprazole in the form of Abilify Maintena. He is also been hesitant to take oral Abilify, but has been doing so. -The patient's lack of cooperation is thought possibly to be related to an un-expressed desire to not be discharged back to the community. He told me today that he left his meeting with his community providers after a few seconds because "just the side of them made me extremely anxious. My pulse elevated to 140." Later, he told me that he was still anxious about it and his pulse was "still around 130." The patient allowed me to take his pulse, and it was approximately 76. At that point he said, "did I say pulse? I meant systolic blood pressure." And when I pointed out that his systolic blood pressure of 130 is not considered to be a particular concern, he said "I mean diastolic." -Our hope had been that the patient would agree to accept a Depo form of medication. He was refusing Haldol Decanoate because of various side effects. Risperidone constant was ruled out as a first-line Depo medication because of the frequency of administration (the patient tends to get into power struggles over medications) and because he says that he is sensitive to "big needles." Invega would be an option, but currently the patient is being so uncooperative that our concern would be that he would cheek the oral tablets that we would have to give him first. Accordingly, the new strategy will be to discontinue Abilify, and resume olanzapine with olanzapine IM over objection if necessary. We will begin the olanzapine Zydis 20 mg at bedtime 03/10 -The patient took the prescribed dose of olanzapine Zydis 20 mg at bedtime last night. Today, he tells me that it "did not help at all." However, staff report that he has been somewhat more agreeable, more pleasant, and less paranoid today. -As he has with other providers, today he told me that I should have given him olanzapine 5 mg "to start", and I explained that he was already on olanzapine 20 mg when he came into the hospital and we know that he is able to tolerate that dose. He tells me that he did, in fact tolerate the dose and is not aware of any side effects, but, somewhat illogically, insisted that the dose was "too high for a starting dose." 03/11 - Continue current medication regimen at this time - olanzapine 20mg daily - Encourage participation in the milieu and in group programming as tolerated 03/12 -Continue current medication regimen. The patient's condition has not yet improved. -The patient does participate in select groups, but often tends to be disruptive. 03/13 -Today, the patient seems to be somewhat more cooperative and less frankly delusional. It was possible to engage in a mostly reality based conversation for 5 or 10 minutes at a time. Also, although he was unhappy with me when I refused to provide him with a dose of Valium for anxiety, he was able to remain pleasant and calm at this time, did not storm from the room." 03/14 and 03/15 -no change in medication will work on therapeutic alliance given patient is not participating 03/16 -304 involuntary commitment granted. -Patient remains completely uncooperative with treatment, refused his Zyprexa Zydis last evening, but then ultimately took it before he received the injection. I have a high suspicion for cheeking of antipsychotic medication, and we will continue to be vigilant with mouth checks, and work towards a long- acting injectable. 03/17 -Patient has been on Zyprexa 20 mg at bedtime for 1 week, with limited response. He is refusing to discuss other medication options. Per records, he has been prescribed up to 30 mg olanzapine in the past, so will increase his dose to this previously tolerated dose, as it is 1 of the few medications he has been willing to take. Continue IM backup for refusal, and Zyprexa Zydis formulation to decrease risk of cheeking. He is not compliant with mouth checks, but have asked staff to try to observe him for 10 minutes after taking the Zydis to ensure he is not spitting it out before it dissolves. 03/18 -Continue Zyprexa Zydis 30 mg at bedtime with IM backup. Consider switch to a different medication (?oral paliperidone with IM backup) if irritability and agitation continues. He has tried virtually every atypical antipsychotic and reports none of them were effective (although some trials were short due to nonadherence) and has a history of dystonia on haloperidol. Clozapine would be a reasonable choice, but he has been unwilling to even discuss medication options. -Consider some component of cognitive decline which could be contributing to his worsening presentation and will need to be monitored and worked up further once he is more psychiatrically stable. -Refer to [facility] in the event that he does not improve and long-term inpatient treatment is needed. 03/19 - Proceed with [facility] referral. 03/20 - Continue current medication regimen; patient refused EKG and CXR yesterday - refused again today - Continue attempts to gather information to make a referral to [facility] 03/23 - Proceed with [facility] referral - patient has refused EKG and CXR for multiple attempts. We will send most recent tests available - Continue current medication regimen at this time 03/24 -Attempted to hold diversion meeting with his outpatient [facility], snf director, and the [facility] MH/ID; patient refused to attend or participate in the meeting. 03/25 - 03/26 - Continue treatment plan as above - no change in patient's condition and he remains unwilling to participate meaningfully in treatment - Continue with [facility] referral 03/27 -The patient has been informed that the plan at this point is to transfer him to [facility] for long-term inpatient psychiatric treatment, given his refusal to adhere with treatment and his associated behaviors in the community when not adherent with psychiatric treatment. -The patient continues to refuse mouth checks after given dosages of Zyprexa Zydis, and there is some question regarding whether he is actually ingesting this medication. He also would not cooperate with laboratory testing. -There has been a question regarding the patient's cognitive functions, and prior to admission he had been taking Aricept. When he does cooperate with this, I have not seen evidence of any substantial cognitive impairment. He may have mild cognitive impairment, but does not fully cooperate with formal cognitive assessment. He easily recalls the names of his providers, the names of the medications he is taking, the names of the various infectious agents that he believes are causing some of his psychiatric symptoms, the names of certain chemicals that he believes will rid him of the reference to infections, and is able to discuss current events such as recent news items. His assertion that he wants to return to his apartment in the community seems belied by his steadfast refusal to cooperate with those interventions I would make it possible for him to return, and there is some suspicion that although the patient remains floridly psychotic he may also be intentionally sabotaging discharge. 03/28 - 03/30 -There is been no global climate change researcher the past 2 weeks, and long-term inpatient treatment at the [facility] is indicated. 03/31 - Continue current medication regimen - Pt briefly verbalized willingness for FARAH, but was not agreeable to medication adjustments to allow for this to be possible - If he should change his mind; recommendation is for trial of Invega orally to establish tolerability, then consideration for Invega Sustenna - unwilling for this today 04/01 - 04/03 - Continue current medication regimen - Continues to refuse FARAH, will continue discussion daily as this is the reported preference of his CRR 04/04 -Questionable positive PPD measuring 13 mm but history of confinement places him at higher risk. Patient refused chest x-ray today but we will reapproach. No active symptoms of infection. Order for sputum culture and smear today for confirmation. 04/05 -PPD now appears negative. Would suggest follow through with sputum smear and culture for confirmation as previously ordered -Continue treatment plan as above 04/06 - PPD reportedly negative, patient unable to follow-up with sputum smear - therefore discontinued - Continue medication regimen as above - unwilling to discuss conversion to an FARAH - Meeting today with representation from [facility] to discuss discharge planning 04/07 - Continue medication regimen as above - remains unwilling to discuss changes - Additional meeting with CRR and CM scheduled for next week - We have been regularly assessing patient's condition and appropriateness to go outside since his 30-day treatment plan review. As patient continues to be unwilling to participate in a meaningful conversation with providers regarding his condition, we continue to be unable to determine if he is appropriate to be taken off the unit - therefore will await ability to discuss the topic in a meaningful way prior to making this determination. Will continue regular evaluation. 04/08 - 04/12 - Continue current medication regimen, as patient unwilling to discuss changes - Attempted again to determine if appropriate to go outside, patient unwilling to participate in conversation despite being told the goal of allowing him to go outside - Meeting with CM and CRR director scheduled for 04/13 at 1030 04/13 - Continue Zyprexa 30mg daily - unwilling to engage in conversation to discuss changes - Remains unwilling to engage in conversation to determine if he is appropriate to go outside, he has been made aware this is a possibility for him - Meeting for attempted diversion resulted in decision to no longer hold patient's CRR bed, [facility] admission is supported based on little to no improvement since admission and limited willingness to engage in conversations regarding medication adjustments - We have been asked to attempt to get a QuantiFERON-TB Gold Plus test, despite negative PPD reading within acceptable timeframe - pt unwilling to engage in conversation to obtain consent, further indicating why long-term inpatient psychiatric hospitalization is necessary. Will continue to attempt to gain consent for this testing to be completed 04/15 -The patient is slightly more communicative today and that he does answer at least one question which was whether he would be in agreement if we offered him a drug holiday from olanzapine. His response was in the affirmative.. He also said "thank you." -The patient continues to appear suspicious and he clearly is angry at and unwilling to cooperate with staff. He is particularly bumptious with individuals who he sees as not fully trained and fully qualified. -The plan remains transfer to the [facility] for long-term psychiatric care. Our hope remains that we will be able to divert the patient from the [facility], but the patient, as noted above, remains uncommunicative and resistant. Perhaps contributing to the patient's obvious anger and distress is the fact that he has learned this week that his residential program is unwilling to allow him to return and has stopped holding his bed for other individuals. 04/16 - Continue current treatment plan, which includes holiday from olanzapine as a rapport building attempt, and due to concerns that he is more irritable and resistant to treatment - which is obviously not beneficial for his overall condition. - Attempted to communicate with the patient today via written/printed text - will add addendum to this note if patient was willing to complete the sheet and respond to questions 04/21 -Patient remains uncooperative and unwilling to participate in interviews, but has been out of his room more and attending some groups. He remains unwilling to discuss treatment options, including antipsychotic medication. 04/22 - Patient remains unwilling for medications, but is interacting with peers appropriately and attending groups. Will try discontinuing private room and placing him with a roommate, is perhaps increased socialization will be therapeutic for him. 04/23 -no change, patient still unwilling for medications(other than marijuana and benzos) 04/24 -The patient remains angry, suspicious, and largely uncommunicative. He sp annie briefly with the attending psychiatrist today in order to request privileges to go outdoors with staff, and was able to cooperate with a fresh air break, but subsequently was angry, bumptious, and willing to cooperate with assessments. 04/25 - valium 5mg dose yesterday appeared to lead to some disinhibited verbally agitated behavior, with the valium dose being discontinued following that one d ose. Pt is fixated on valium and on temazepam. refusal to take other medications with. Handling a roommate decently currently. Pt refusing to attend groups. Limited engagement with peers and staff occurring. no change to plan today 04/26 no change to plan today (2) Substance abuse: 02/25 - Pt has reported history of substance abuse, and recommendation has consistently been for avoidance of substances with significant abuse potential. - PDMP queried - most recent prescriptions below - lorazepam 0.5mg #60 tabs for 30 day supply - Dr. Alves - filled 02/12/2019 - alprazolam 0.5mg #90 tabs for 30 day supply - Dr. Lopez - filled 01/16/2019 - temazepam 30mg #30 caps for 30 day supply - Dr. Lopez - filled 01/16/2019 - Will continue lorazepam 0.5mg BID prn on admission, as only medication that is seemingly active - toxicology screen is negative for benzodiazepines, which questions if he has been taking the medication appropriately - Ideally will taper and discontinue the lorazepam, as recommendation remains that substances with abuse potential be avoided 02/26 -The patient's outpatient providers, during a meeting this morning, report t hat the patient tends to successfully convince physicians to prescribe benzodiazepines for him and that, in the past, he has abused him to the degree that he is practically obtunded. 02/27 -A repeat check of the PDMP reveals that the patient is consistently being prescribed lorazepam 0.5 mg twice daily (number 60/month) by a Dr. Brent Alves. He is also being prescribed alprazolam 0.[address] mg [address] Jeff Lopez, with the most recent previous prescription of alprazolam being on 01/16/[address] Lopez also prescribed temazepam 30 mg capsules #30 on 01/16/2019. According to his residential providers, no temazepam capsules were found among the patient's belongings. His most recent prescription for lorazepam 0.5 mg tablets was filled on 02/12/2019. 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 In the past, he reportedly has used clonazepam and temazepam. -I advised the patient that because of his history of misuse of benzodiazepines we would not be prescribing benzodiazepines during his hospital stay. An as needed order for lorazepam has not been used during hospital stay, and I discontinued the order today. 03/02 - Will need to coordinate care with his PCP and outpatient psychiatrist prior to discharge regarding the above. 03/04 - Charge nurse spoke with the above offices regarding concern for continued benzodiazepine prescriptions - Records will be faxed to their offices on discharge, as all benzodiazepines were discontinued during this hospitalization 03/06 -The patient did not request benzodiazepines and did not complain of anxiety today. I suggested to him that perhaps Abilify is also helping with anxiety in his case, and he responded by saying "perhaps." 03/09 -Today, the patient is insisting that what he needs is "benzodiazepines," and explains that the reason he "needs" benzodiazepines is that he has "benzodiazepine receptors," and that he is the only medications that work. He is unable to process warnings about the risks of benzodiazepines in the elderly, including increased risk of falls and mortality. Clearly, the patient is seeking benzodiazepines and has no insight into the associated risks. He also insists that he has never had trouble with benzodiazepines in the past, although there is well-documented of this. 03/10 -Today, the patient repeated his insistence that he needs benzodiazepines and that benzodiazepines are the only medications that work because he has "benzodiazepine receptors." After being told that everyone has central nervous system receptors to which benzodiazepines may attach, he replied, "That may be, but some of people need to have benzodiazepines forearm benzodiazepine receptors. 03/12 -Continues to request Benzodiazepines. 03/13 -Requests Valium for his "benzodiazepines receptors." 03/27 -Refuses to cooperate with assessment today, but has recently told staff that he needs "either Valium or Ativan." -The patient apparently has no working insight into his history of abuse of prescription medications (benzodiazepines). 04/15 -The patient has not reference to request for benzodiazepines recently. However, the context is that he has not communicated much of anything directly, a other than the occasional need for self-care items. 04/24 -Today, the patient repeats his request for benzodiazepines, and insists that he is "supposed" to be taking diazepam 10 mg 3 times a day and temazepam for sleep every night. 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 Unfortunately, the exact opposite seems to have occurred. Not only was the patient was uncooperative subsequent to a dose of Valium, he seems to have been disinhibited by it and shouting "get out" or "get away" several times when approached by staff 04/25 - pt focused on seeking temazepam, or Valium (3) Hypertension: 02/25 - Continue home dose of clonidine 0.1mg qHS 03/01 Watch mildly elevated blood pressures as patient has been refusing clonidine 03/03 - BP normal past two days, and low today 03/10 -The patient's blood pressure today was 136/73. His pulse was 71 03/14 - elevated BP it is not urgent but will need monitored. 03/15 - BP WNL 03/26 - BP continues to be WNL 04/02 - BP remains within normal limits; continue daily vitals per standard admission order set - Will consider acute phase of this problem resolved at this time Risk Factors Assessment Male: Yes : Yes Do You Have Access To A Gun?: No Health Problems: Yes Mental Health Diagnoses: Yes Substance Use Disorders: Yes Protective Factors Assessment Cheondoism Beliefs: No : No Responsible for Young Children: No Employed: No Stable Relationships: No Supportive Family: No Good Rapport with Provider: No Absence of Any Risk Factors Above: No Interval History Identifying Information SCOTT ROBERTO is a 73-year-old M who currently lives at a [facility] in [place], has a history of schizophrenia, and is known to our unit from several previous admissions, most recently in 09/2016. He was admitted on 02/24/19 16:40 on a 302 involuntary commitment for exacerbation of schizophrenia and heightened paranoia resulting in belief he needed to hide in a dumpster to seek refuge from impending bombings. He was found by [facility] staff and brought to the ED by police, and is on a 304 involuntary commitment as of 03/16/19. 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 Chief Complaint "temazepam works". Review of Systems Sleep Information Total Hours of Sleep: 6 Sleep Comments: awake in his room or out to the kitchen prior to going to sleep, he was able to settle when his roommate went to bed Meal Information Percent Meal Consumed - Breakfast: 100 Percent Meal Consumed - Lunch: 100 Percent Meal Consumed - Dinner: 100 Nutrition Comment: per meal record Subjective Subjective Patient was seen & assessed and interval progress reviewed with nursing and social work. Pt unchanged in presentaiton. of note pt indicate that he thinks his psychiatrist at [facility] is not a real doctor and that he is hiding from the [facility]. pt does not view this as paranoid though. Pt contines to reprot not falling asleep till 4am. Pt had obtained temezpeam from Dr. Ku and he felt it worked well, However pt also had ativan scripts from [facility] aroud[facility] the same time with pt having long standing benzo use disorder. pt not willing to try any other med for sleep. pt is isolating and not attending groups not interacting with others. is being approapite with having a roommate though. no agtiated behaviors Physical Exam Psychiatric Orientation: alert, oriented x 3, oriented to person and oriented to place Apperance: appropriately dressed, appropriately groomed and appeared stated age Eye Contact: good eye contact (for the brief encounter) Motor Behavior: steady gait and station and no abnormal motor movements Speech: + mute and normal rate/rhythm/volume of speech; no pressured speech Affect: + blunted affect Mood: no depressed mood, no anxious mood, no irritable mood ("I'm ok") and no angry mood good Thought Process: goal directed thought process and + concrete thought process Thought Content: + preoccupation, + paranoid, + delusions (no delusional thought content verbalized, though likely still underlying) and + persecution Suicidal Thoughts: denies suicidal thoughts and denies suicidal intent Homicidal Thoughts: denies homicidal thoughts Hallucinations: no auditory hallucinations (The patient appears to be attending to internal stimuli, but is not communicative.), no visual hallucinations, no tactile hallucinations and no gustatory hallucinations Cognition: recent memory grossly intact, remote memory grossly intact, attention grossly intact and language grossly intact Estimated Intelligence: consistent with education level and + above average estimated intelligence Insight: + severely impaired insight Judgement: + impaired judgement Vital Signs (Past 24 Hours) Last Vital Signs Temp 36.7 C 04/26/19 06:27 Pulse 66 04/26/19 06:27 Resp 18 04/26/19 06:27 BP 104/61 04/26/19 06:27 Pulse Ox 96 02/24/19 08:10 Results & Data Current Inpatient Medications Current Inpatient Medications: Current Inpatient Medications Acetaminophen (Tylenol) 650 mg PO Q4H PRN PRN Reason: Headache or Minor Fever Stop: 05/23/19 08:14 Al Hydrox/Mg Hydrox/Simethicone (Maalox) 30 ml PO Q4H PRN PRN Reason: GI Upset Stop: 05/23/19 08:14 Benztropine Mesylate (Cogentin) 0.5 mg PO BID PRN PRN Reason: dystonia Stop: 05/23/19 08:14 Bismuth Subsalicylate (Kaopectate) 15 ml PO PRN PRN PRN Reason: Loose Stool Stop: 05/23/19 08:14 Clonidine HCl (Catapres) 0.1 mg PO HS MAG Stop: 05/23/19 21:59 Last Admin: 04/25/19 21:36 Dose: 0.1 mg Documented by: Cyanocobalamin (Vitamin B-12) 500 mcg PO DAILY MAG Stop: 05/23/19 08:59 Last Admin: 04/26/19 08:53 Dose: 500 mcg Documented by: Hydroxyzine HCl (Vistaril) 25 mg PO Q4H PRN PRN Reason: Anxiety Stop: 05/23/19 08:14 Hydroxyzine HCl (Vistaril) 50 mg PO HSZ PRN PRN Reason: Insomnia Stop: 05/23/19 08:14 Magnesium Hydroxide (Milk Of Magnesia) 30 ml PO DAILY PRN PRN Reason: Heartburn Stop: 05/23/19 08:19 Magnesium Oxide (Mag-Ox) 400 mg PO DAILY [facility] Stop: 05/23/19 08:59 Last Admin: 04/26/19 08:53 Dose: 400 mg Documented by: Miscellaneous (Remove Nicoderm Patch) 1 ea N/A HS [facility] Stop: 05/23/19 21:59 Last Admin: 04/25/19 21:42 Dose: 1 ea Documented by: Multivitamins (Multivitamin Tab) 1 tab PO DAILY [facility] Stop: 05/23/19 08:59 Last Admin: 04/26/19 08:53 Dose: 1 tab Documented by: Nicotine (Nicoderm Cq) 14 mg TD QAM [facility] Stop: 05/23/19 08:59 Last Admin: 04/26/19 08:54 Dose: 14 mg Documented by: Olanzapine (Zyprexa) 10 mg IM HS PRN PRN Reason: Undecided Stop: 05/23/19 08:19 Pyridoxine HCl (Vitamin B-6) 100 mg PO DAILY [facility] Stop: 05/23/19 08:59 Last Admin: 04/26/19 08:53 Dose: 100 mg Documented by: Risperidone (Risperdal M) 1 mg PO BID PRN PRN Reason: psychosis Stop: 05/23/19 08:19 Sodium Chloride ([place]on Nasal) 1 - 2 sprays NA PRN PRN PRN Reason: Nasal Dryness/Congestion Stop: 05/23/19 08:19 Mental Health & Subst Abuse Tx Therapist Name of Therapist: Sammy Senior Accounting Manager Name of Senior Accounting Manager: Shruti Lopez Phone Number for Senior Accounting Manager: Case Management Appointment Comment: [phone] , [place] [address] Post Discharge Appointments Primary Care Physician Name Of Family Doctor: Dr. Lopez Contact Information Discharge Discharge Address: [address] [place] [id number] CPT Code CPT Code 91932 (1) Schizophrenia Schizophrenia type: paranoid schizophrenia Qualified Code(s): F20.0 - Paranoid schizophrenia (2) Hypertension Hypertension type: essential hypertension Qualified Code(s): I10 - Essential (primary) hypertension
[2019-04-26] MEDS: cloNIDine HCL 0.1 MG TAB PO SCH (20:55)
[2019-04-27] MEDS: MULTIVITAMIN TAB PO SCH (08:58)
[2019-04-27] MEDS: MAGNESIUM OXIDE 400 MG TAB PO SCH (08:58)
[2019-04-27] MEDS: NICOTINE 14 MG/24 HR PATCH TD SCH (08:58)
[2019-04-27] MEDS: CYANOCOBALAMIN 500 MCG TABLET (VITAMIN B-12) PO SCH (08:58)
[2019-04-27] MEDS: PYRIDOXINE HCL 50 MG TAB PO SCH (08:58)
--- NOTE | 2019-04-27 15:22 | Psychiatric Progress Note ---
Date of Service April 27, 2019 Impression / Recommendations Impression Patient remains uncooperative, will not speak to clinicians, nor take medication. He is refusing most groups. He is now tolerating having a roommate while on the unit. His fdc bed was relinquished due to ongoing psychotic symptoms and unwillingness to engage in treatment, and although he has been accepted at the [facility], we still do not have a bed date. Yesterday a trial dose of oral diazepam 5 mg (given in attempt to see if could help settle pt and improve documentation lead to seeming disinhibited and more verbally agitated behavior. The problem is that we have not seen clear evidence that the patient responds favorably to any medications. Historical information provided by other providers do indicate improvement with medication such as olanzapine at higher dosages. However, we have witnessed no such improvement after a reasonable trial here in the hospital. He is also steadfast in his refusal to take such medication. Today, the patient was surprisingly cooperativeafter a number of weeks of refusing to talk with me and with other providers. We note that he has been attending groups sporadically, but typically promises to attend the group and then does not appear. Today, he did cooperate with a formal interview. He offers no complaints other than decreased sleep which is an issue that he has raised a number of times over the course of his stay. Our records indicate that the patient is sleeping during the night, but the patient calmly tells me that he believes the nurses are misunderstanding the fact that he may lay in bed with his eyes closed at night to rest, without being actually asleep. The current plan remains for the patient to be transferred for long-term psychiatric hospitalization, given his inability to cooperate with treatment, given his inability to attend his own physical needs without the availability of the full spectrum of psychiatric services at the inpatient level of care, and what appears to be ongoing psychosis and paranoia. No delusional material was identified today and the patient's thought content (1) Schizophrenia: the interview.02/25 - Continue home medication regimen - as refusing offerings of his antipsychotic, will likely require olanzapine IM (or alternative agent) over objection, given clear evidence of paranoia and delusional thought process - previously stabilized on this medication - Pt agreeable to taking all other medications, with exception of antipsychotic as mentioned above - Admitted to a locked inpatient behavioral health unit, on q15 minute safety checks - Encourage medication initiation/adjustments as indicated - Encourage participation in group and recreational therapies - Gather collateral information from outpatient providers and fdc staff - Suggest family meeting to involve outpatient supports in safety planning - Reschedule appropriate aftercare appointments 02/26 -Patient indicates willingness to sign a release for the [facility], will get collateral from their staff. -File for 303 involuntary commitment to be held tomorrow. -Recommend medications over objection, with an IM Zyprexa backup for refusal of oral medication. Involve outpatient treatment team to discuss ways to improve stability and compliance; consider long-acting injectable antipsychotic. -Order fasting labs for monitoring on an atypical antipsychotic once patient is more cooperative. 02/27 -The patient was retrained at his involuntary commitment hearing (303) this morning. -He has continuously and consistently refused psychiatric medications to date. However, today, when I explained that that a option that might become necessary in his case is medication over objection, and an intramuscular form, the patient said that he understood and that he would try medications that I prescribe. His initial preference would be olanzapine, but because olanzapine is not available in a long acting depot form, we would first like to try aripiprazole. He indicates that he is taken aripiprazole in the past and has been able to tolerate it, although he does not believe that it has been particularly helpful. -A trial dose of aripiprazole 15 mg by mouth, as a one-time dose, has been ordered and he assessed for efficacy. 02/28 -Appears to be tolerating initiation of Abilify so far. Remains delusional, paranoid. May consider further titration tomorrow -Aricept discontinued at patient's request on 02/27/2019. The medication has not been demonstrated to be efficacious for cognitive impairment associated with long-standing schizophrenia however we should be vigilant for slowing of mentation following discontinuation. 03/01 Patient fixated and irrational regarding access to clothing item as above today. Hospital environment becoming incorporated and delusions. Consider possibility that the aripiprazole is contributing to activation. We will increase to 20 mg tomorrow and also start Risperdal 1 mg p.o. twice daily as as needed. 03/02 - Continue with aripiprazole at 20mg daily, consider need for further titration - if tolerating and effective, eventual plan will be for conversion to Abilify Maintena - Pt has not yet utilized risperidone 03/03 - Increase aripiprazole to 25mg (equivalent to 30mg pill) and change to liquid formulation to decrease risk of cheeking/nonadherence, as patient does not believe he needs medication and had been noncompliant prior to hospitalization. - Fasting glucose and lipid profile ordered for tomorrow for monitoring on an atypical antipsychotic. - Private room due to psychosis, agitation, and inappropriate disrobing/sexual behavior. - Meeting with [facility] and [facility] staff when patient able to tolerate. 03/04 - Continue aripiprazole 25mg liquid (30mg pill equivalent) and continue to observe for improvement in thought process/content - consider conversion to Maintena if effective, versus trial of another agent if improvement remains limited - Fasting labs reviewed - all values WNL - Continue medically necessary private room - Request meeting with [facility] staff, in order to obtain details about patient's proximity to baseline 03/05 -Patient refusing liquid aripiprazole, but agrees to take the pill: Ordered 30 mg daily. -Schedule meeting with his case mgr, CRR and psych rehab staff. Consider involuntary outpatient commitment at the time of discharge. 03/06 -The patient has improved in that he is more reality based at this point. He continues to harbor fixed, systematized delusions, but is generally able to focus on reality based topics. -Although the patient tells me that he does not feel that aripiprazole has been effective, he is able to accept my opinion in the opinion of the staff that he has improved in response to aripiprazole. -The patient's main objection to aripiprazole oral solution is that he does not like the way it tastes, and within this context, he tells us that he is willing to accept Abilify Maintenaand requests that it be injected into his buttock. Abilify Maintena 300 mg IM ordered, and oral Abilify discontinued. We will resume oral Abilify if the patient subsequently changes his mind and refuses the injection. 03/07 resuming abilfiy oral given his refusal of FARAH form of abilify 03/08 is taking abilify po form but refusing abilify maintena form. advise close monitoring for potential of checking given pt's tendency to not want to take medications. 7/22 -The patient is flatly refusing to take aripiprazole in the form of Abilify Maintena. He is also been hesitant to take oral Abilify, but has been doing so. -The patient's lack of cooperation is thought possibly to be related to an un-expressed desire to not be discharged back to the community. He told me today that he left his meeting with his community providers after a few seconds because "just the side of them made me extremely anxious. My pulse elevated to 140." Later, he told me that he was still anxious about it and his pulse was "still around 130." The patient allowed me to take his pulse, and it was approximately 76. At that point he said, "did I say pulse? I meant systolic blood pressure." And when I pointed out that his systolic blood pressure of 130 is not considered to be a particular concern, he said "I mean diastolic." -Our hope had been that the patient would agree to accept a Depo form of medication. He was refusing Haldol Decanoate because of various side effects. Risperidone constant was ruled out as a first-line Depo medication because of the frequency of administration (the patient tends to get into power struggles over medications) and because he says that he is sensitive to "big needles." Invega would be an option, but currently the patient is being so uncooperative that our concern would be that he would cheek the oral tablets that we would have to give him first. Accordingly, the new strategy will be to discontinue Abilify, and resume olanzapine with olanzapine IM over objection if necessary. We will begin the olanzapine Zydis 20 mg at bedtime 03/10 -The patient took the prescribed dose of olanzapine Zydis 20 mg at bedtime last night. Today, he tells me that it "did not help at all." However, staff report that he has been somewhat more agreeable, more pleasant, and less paranoid today. -As he has with other providers, today he told me that I should have given him olanzapine 5 mg "to start", and I explained that he was already on olanzapine 20 mg when he came into the hospital and we know that he is able to tolerate that dose. He tells me that he did, in fact tolerate the dose and is not aware of any side effects, but, somewhat illogically, insisted that the dose was "too high for a starting dose." 03/11 - Continue current medication regimen at this time - olanzapine 20mg daily - Encourage participation in the milieu and in group programming as tolerated 03/12 -Continue current medication regimen. The patient's condition has not yet improved. -The patient does participate in select groups, but often tends to be disruptive. 03/13 -Today, the patient seems to be somewhat more cooperative and less frankly delusional. It was possible to engage in a mostly reality based conversation for 5 or 10 minutes at a time. Also, although he was unhappy with me when I refused to provide him with a dose of Valium for anxiety, he was able to remain pleasant and calm at this time, did not storm from the room." 03/14 and 03/15 -no change in medication will work on therapeutic alliance given patient is not participating 03/16 -304 involuntary commitment granted. -Patient remains completely uncooperative with treatment, refused his Zyprexa Zydis last evening, but then ultimately took it before he received the injection. I have a high suspicion for cheeking of antipsychotic medication, and we will continue to be vigilant with mouth checks, and work towards a long- acting injectable. 03/17 -Patient has been on Zyprexa 20 mg at bedtime for 1 week, with limited response. He is refusing to discuss other medication options. Per records, he has been prescribed up to 30 mg olanzapine in the past, so will increase his dose to this previously tolerated dose, as it is 1 of the few medications he has been willing to take. Continue IM backup for refusal, and Zyprexa Zydis formulation to decrease risk of cheeking. He is not compliant with mouth checks, but have asked staff to try to observe him for 10 minutes after taking the Zydis to ensure he is not spitting it out before it dissolves. 03/18 -Continue Zyprexa Zydis 30 mg at bedtime with IM backup. Consider switch to a different medication (?oral paliperidone with IM backup) if irritability and agitation continues. He has tried virtually every atypical antipsychotic and reports none of them were effective (although some trials were short due to nonadherence) and has a history of dystonia on haloperidol. Clozapine would be a reasonable choice, but he has been unwilling to even discuss medication options. -Consider some component of cognitive decline which could be contributing to his worsening presentation and will need to be monitored and worked up further once he is more psychiatrically stable. -Refer to [facility] in the event that he does not improve and long-term inpatient treatment is needed. 03/19 - Proceed with [facility] referral. 03/20 - Continue current medication regimen; patient refused EKG and CXR yesterday - refused again today - Continue attempts to gather information to make a referral to [facility] 03/23 - Proceed with [facility] referral - patient has refused EKG and CXR for multiple attempts. We will send most recent tests available - Continue current medication regimen at this time 03/24 -Attempted to hold diversion meeting with his outpatient [facility], fdc director, and the [facility]; patient refused to attend or participate in the meeting. 03/25 - 03/26 - Continue treatment plan as above - no change in patient's condition and he remains unwilling to participate meaningfully in treatment - Continue with [facility] referral 03/27 -The patient has been informed that the plan at this point is to transfer him to [facility] for long-term inpatient psychiatric treatment, given his refusal to adhere with treatment and his associated behaviors in the community when not adherent with psychiatric treatment. -The patient continues to refuse mouth checks after given dosages of Zyprexa Zydis, and there is some question regarding whether he is actually ingesting this medication. He also would not cooperate with laboratory testing. -There has been a question regarding the patient's cognitive functions, and prior to admission he had been taking Aricept. When he does cooperate with this, I have not seen evidence of any substantial cognitive impairment. He may have mild cognitive impairment, but does not fully cooperate with formal cognitive assessment. He easily recalls the names of his providers, the names of the medications he is taking, the names of the various infectious agents that he believes are causing some of his psychiatric symptoms, the names of certain chemicals that he believes will rid him of the reference to infections, and is able to discuss current events such as recent news items. His assertion that he wants to return to his apartment in the community seems belied by his steadfast refusal to cooperate with those interventions I would make it possible for him to return, and there is some suspicion that although the patient remains floridly psychotic he may also be intentionally sabotaging discharge. 03/28 - 03/30 -There is been no private branch exchange service advisor the past 2 weeks, and long-term inpatient treatment at the [facility] is indicated. 03/31 - Continue current medication regimen - Pt briefly verbalized willingness for FARAH, but was not agreeable to medication adjustments to allow for this to be possible - If he should change his mind; recommendation is for trial of Invega orally to establish tolerability, then consideration for Invega Sustenna - unwilling for this today 04/01 - 04/03 - Continue current medication regimen - Continues to refuse FARAH, will continue discussion daily as this is the reported preference of his CRR 04/04 -Questionable positive PPD measuring 13 mm but history of confinement places him at higher risk. Patient refused chest x-ray today but we will reapproach. No active symptoms of infection. Order for sputum culture and smear today for confirmation. 04/05 -PPD now appears negative. Would suggest follow through with sputum smear and culture for confirmation as previously ordered -Continue treatment plan as above 04/06 - PPD reportedly negative, patient unable to follow-up with sputum smear - therefore discontinued - Continue medication regimen as above - unwilling to discuss conversion to an FARAH - Meeting today with representation from [facility] to discuss discharge planning 04/07 - Continue medication regimen as above - remains unwilling to discuss changes - Additional meeting with CRR and CM scheduled for next week - We have been regularly assessing patient's condition and appropriateness to go outside since his 30-day treatment plan review. As patient continues to be unwilling to participate in a meaningful conversation with providers regarding his condition, we continue to be unable to determine if he is appropriate to be taken off the unit - therefore will await ability to discuss the topic in a meaningful way prior to making this determination. Will continue regular evaluation. 04/08 - 04/12 - Continue current medication regimen, as patient unwilling to discuss changes - Attempted again to determine if appropriate to go outside, patient unwilling to participate in conversation despite being told the goal of allowing him to go outside - Meeting with CM and CRR director scheduled for 04/13 at 1030 04/13 - Continue Zyprexa 30mg daily - unwilling to engage in conversation to discuss changes - Remains unwilling to engage in conversation to determine if he is appropriate to go outside, he has been made aware this is a possibility for him - Meeting for attempted diversion resulted in decision to no longer hold patient's CR[facility] bed, [facility] admission is supported based on little to no improvement since admission and limited willingness to engage in conversations regarding medication adjustments - We have been asked to attempt to get a QuantiFERON-TB Gold Plus test, despite negative PPD reading within acceptable timeframe - pt unwilling to engage in conversation to obtain consent, further indicating why long-term inpatient psychiatric hospitalization is necessary. Will continue to attempt to gain consent for this testing to be completed 04/15 -The patient is slightly more communicative today and that he does answer at least one question which was whether he would be in agreement if we offered him a drug holiday from olanzapine. His response was in the affirmative.. He also said "thank you." -The patient continues to appear suspicious and he clearly is angry at and unwilling to cooperate with staff. He is particularly bumptious with individuals who he sees as not fully trained and fully qualified. -The plan remains transfer to the [facility] for long-term psychiatric care. Our hope remains that we will be able to divert the patient from the [facility], but the patient, as noted above, remains uncommunicative and resistant. Perhaps contributing to the patient's obvious anger and distress is the fact that he has learned this week that his residential program is unwilling to allow him to return and has stopped holding his bed for other individuals. 04/16 - Continue current treatment plan, which includes holiday from olanzapine as a rapport building attempt, and due to concerns that he is more irritable and resistant to treatment - which is obviously not beneficial for his overall condition. - Attempted to communicate with the patient today via written/printed text - will add addendum to this note if patient was willing to complete the sheet and respond to questions 04/21 -Patient remains uncooperative and unwilling to participate in interviews, but has been out of his room more and attending some groups. He remains unwilling to discuss treatment options, including antipsychotic medication. 04/22 - Patient remains unwilling for medications, but is interacting with peers appropriately and attending groups. Will try discontinuing private room and placing him with a roommate, is perhaps increased socialization will be therapeutic for him. 04/23 -no change, patient still unwilling for medications(other than marijuana and benzos) 04/24 -The patient remains angry, suspicious, and largely uncommunicative. He spoke briefly with the attending psychiatrist today in order to request privileges to go outdoors with staff, and was able to cooperate with a fresh air break, but subsequently was angry, bumptious, and willing to cooperate with ass essments. 04/25 - valium 5mg dose yesterday appeared to lead to some disinhibited verbally agitated behavior, with the valium dose being discontinued following that one dose. Pt is fixated on valium and on temazepam. refusal to take other medications with. Handling a roommate decently currently. Pt refusing to attend groups. Limited engagement with peers and staff occurring. no change to plan to day 04/26 no change to plan today 04/27 -The patient cooperated with an interview today after several weeks of flatly refusing, sometimes rudely refusing to speak to providers. Today, the patient not voiced any delusional material and was able to specifically answer questions regarding perceptual disturbances. ("None") The patient also tells me that he feels "safe" in the hospital and is not experiencing any distress. His only complaint today has to do with insomnia, which is a problem that he has mentioned periodically over the course of his stay. (2) Substance abuse: 02/25 - Pt has reported history of substance abuse, and recommendation has consistently been for avoidance of substances with significant abuse potential. - PDMP queried - most recent prescriptions below - lorazepam 0.5mg #60 tabs for 30 day supply - Dr. Alves - filled 02/12/2019 - alprazolam 0.5mg #90 tabs for 30 day supply - Dr. Lopez - filled 01/16/2019 - temazepam 30mg #30 caps for 30 day supply - Dr. Lopez - filled 01/16/2019 - Will continue lorazepam 0.5mg BID prn on admission, as only medication that is seemingly active - toxicology screen is negative for benzodiazepines, which questions if he has been taking the medication appropriately - Ideally will taper and discontinue the lorazepam, as recommendation remains that substances with abuse potential be avoided 02/26 -The patient's outpatient providers, during a meeting this morning, report that the patient tends to successfully convince physicians to prescribe benzodiazepines for him and that, in the past, he has abused him to the degree that he is practically obtunded. 02/27 -A repeat check of the PDMP reveals that the patient is consistently being prescribed lorazepam 0.5 mg twice daily (number 60/month) by a . Brent Alves. He is also being prescribed alprazolam 0.[address] mg [address] Jeff Lopez, with the most recent previous prescription of alprazolam being on 01/16/[address] Lopez also prescribed temazepam 30 mg capsules #30 on 01/16/2019. According to his residential providers, no temazepam capsules were found among the patient's belongings. His most recent prescription for lorazepam 0.5 mg tablets was filled on 02/12/2019. 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 In the past, he reportedly has used clonazepam and temazepam. -I advised the patient that because of his history of misuse of benzodiazepines we would not be prescribing benzodiazepines during his hospital stay. An as needed order for lorazepam has not been used during hospital stay, and I discontinued the order today. 03/02 - Will need to coordinate care with his PCP and outpatient psychiatrist prior to discharge regarding the above. 03/04 - Charge nurse spoke with the above offices regarding concern for continued benzodiazepine prescriptions - Records will be faxed to their offices on discharge, as all benzodiazepines were discontinued during this hospitalization 03/06 -The patient did not request benzodiazepines and did not complain of anxiety today. I suggested to him that perhaps Abilify is also helping with anxiety in his case, and he responded by saying "perhaps." 03/09 -Today, the patient is insisting that what he needs is "benzodiazepines," and explains that the reason he "needs" benzodiazepines is that he has "benzodiazepine receptors," and that he is the only medications that work. He is unable to process warnings about the risks of benzodiazepines in the elderly, including increased risk of falls and mortality. Clearly, the patient is seeking benzodiazepines and has no insight into the associated risks. He also insists that he has never had trouble with benzodiazepines in the past, although there is well-documented of this. 03/10 -Today, the patient repeated his insistence that he needs benzodiazepines and that benzodiazepines are the only medications that work because he has "benzodiazepine receptors." After being told that everyone has central nervous system receptors to which benzodiazepines may attach, he replied, "That may be, but some of people need to have benzodiazepines forearm benzodiazepine receptors. 03/12 -Continues to request Benzodiazepines. 03/13 -Requests Valium for his "benzodiazepines receptors." 03/27 -Refuses to cooperate with assessment today, but has recently told staff that he needs "either Valium or Ativan." -The patient apparently has no working insight into his history of abuse of prescription medications (benzodiazepines). 04/15 -The patient has not reference to request for benzodiazepines recently. However, the context is that he has not communicated much of anything directly, a other than the occasional need for self-care items. 04/24 -Today, the patient repeats his request for benzodiazepines, and insists that he is "supposed" to be taking diazepam 10 mg 3 times a day and temazepam for sleep every night. 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 Unfortunately, the exact opposite seems to have occurred. Not only was the patient was uncooperative subsequent to a dose of Valium, he seems to have been disinhibited by it and shouting "get out" or "get away" several times when approached by staff 04/25 - pt focused on seeking temazepam, or Valium 04/27 -The patient does have a history of substance dependence. However, the current plan and expected disposition is for the patient to be transferred to an extended care inpatient psychiatric unit where abuse of prescribed medications is unlikely to occur. Today, the patient calmly requests temazepam and says that he has tried a number of different sleeping pills, but "that is the one that works." The patient is also able to clearly say that he understands that temazepam is physically habituating that there are associated risks associated with temazepam including, but not limited to, a risk of falls, accidents, confusion, and depression. He tells us that at prescribed dosages he has not had any of these problems in the past. -Today, I agreed to a trial of temazepam 15 mg at bedtime, a dose that the patient says has been effective in the past. (3) Hypertension: 02/25 - Continue home dose of clonidine 0.1mg qHS 03/01 Watch mildly elevated blood pressures as patient has been refusing clonidine 03/03 - BP normal past two days, and low today 03/10 -The patient's blood pressure today was 136/73. His pulse was 71 03/14 - elevated BP it is not urgent but will need monitored. 03/15 - BP WNL 03/26 - BP continues to be WNL 04/02 - BP remains within normal limits; continue daily vitals per standard admission order set - Will consider acute phase of this problem resolved at this time Risk Factors Assessment Male: Yes : Yes Do You Have Access To A Gun?: No Health Problems: Yes Mental Health Diagnoses: Yes Substance Use Disorders: Yes Protective Factors Assessment Yazdanism Beliefs: No : No Responsible for Young Children: No Employed: No Stable Relationships: No Supportive Family: No Good Rapport with Provider: No Absence of Any Risk Factors Above: No Interval History Identifying Information SCOTT ROBERTO is a 73-year-old M who currently lives at a [facility] in [place], has a history of schizophrenia, and is known to our unit from several previous admissions, most recently in 09/2016. He was admitted on 02/24/19 16:40 on a 302 involuntary commitment for exacerbation of schizophrenia and heightened paranoia resulting in belief he needed to hide in a dumpster to seek refuge from impending bombings. He was found by [facility] staff and brought to the ED by police, and is on a 304 involuntary commitment as of 03/16/19. He has been referred to [facility] for [facility] treatment. Chief Complaint "I still can't sleep". Review of Systems Sleep Information Total Hours of Sleep: 7 Sleep Comments: sleep total between the 10/27 and 06/25 shifts. awakened due to room changes-unable to sleep in his room with his snoring roommate so slept in the quiet room. toileted at 0400 then back to bed/sleep. Meal Information Percent Meal Consumed - Breakfast: 100 Percent Meal Consumed - Lunch: 100 Percent Meal Consumed - Dinner: 75 Nutrition Comment: per meal record Subjective Subjective Patient was seen & assessed and interval progress reviewed with treatment team. I also saw the patient individually in order to assess his current mental treatment, coordinate any necessary changes in his treatment regimen with the patient, and address issues and concerns that may arise. To my surprise, for the first time in a number of weeks, the patient did agree to meet with me. He not only agreed, but he was pleasant and fairly cooperative. He told me that his main complaint is that he is continuing to have difficulty sleeping and he reports a favorable response in the past 2 temazepam 15 mg at bedtime. As I have in the past, I explained the patient that temazepam may be habit forming, and the patient's response was to say "I realize that, but there is also a risk of I do not sleep." I also reminded the patient that, as previously discussed, the nursing notes say that he is asleep at night. He insists that they are confusing the fact that he is laying there with his eyes closed trying to fall asleep with actually being asleep. Otherwise, the patient offers no complaints. He mentions nothing about being in danger, nothing about chips implanted in his teeth, nothing about suffering from toxoplasmosis, and says that, in general, he is feeling "pretty good." He tells me that he is aware that he is at the present time scheduled to be transferred to the [facility], and a glass that he does not wish for this to happen, but also acknowledges that his residential placement is no longer available. Physical Exam Psychiatric Orientation: alert and oriented x 3 He does not recall the specific date, but knows that it is April 2019 and believes that it is "early" April. Apperance: appropriately dressed and appropriately groomed Eye Contact: good eye contact and + fair eye contact Motor Behavior: no abnormal motor movements Speech: normal rate/rhythm/volume of speech Affect: + blunted affect The patient does smile appropriately on one occasion during the encounter. "Okay." Thought Process: goal directed thought process Thought Content: reality based without delusions (No delusional material was elicited during the interview. The patient does remain guarded and tends not to elaborate a great deal) Suicidal Thoughts: denies suicidal thoughts Homicidal Thoughts: denies homicidal thoughts Hallucinations: + auditory hallucinations (At times she is continued to appear to be responding to internal stimuli, but today he tells me that he is not "hearing voices.") Cognition: recent memory grossly intact, remote memory grossly intact and language grossly intact Estimated Intelligence: + above average estimated intelligence Insight: + impaired insight Judgement: + impaired judgement Vital Signs (Past 24 Hours) Last Vital Signs Temp 36.5 C 04/27/19 06:59 Pulse 64 04/27/19 06:59 Resp 18 04/27/19 06:59 BP 109/67 04/27/19 06:59 Pulse Ox 96 02/24/19 08:10 Results & Data Current Inpatient Medications Current Inpatient Medications: Current Inpatient Medications Acetaminophen (Tylenol) 650 mg PO Q4H PRN PRN Reason: Headache or Minor Fever Stop: 05/23/19 08:14 Al Hydrox/Mg Hydrox/Simethicone (Maalox) 30 ml PO Q4H PRN PRN Reason: GI Upset Stop: 05/23/19 08:14 Benztropine Mesylate (Cogentin) 0.5 mg PO BID PRN PRN Reason: dystonia Stop: 05/23/19 08:14 Bismuth Subsalicylate (Kaopectate) 15 ml PO PRN PRN PRN Reason: Loose Stool Stop: 05/23/19 08:14 Clonidine HCl (Catapres) 0.1 mg PO HS MAG Stop: 05/23/19 21:59 Last Admin: 04/26/19 20:55 Dose: 0.1 mg Documented by: Cyanocobalamin (Vitamin B-12) 500 mcg PO DAILY MAG Stop: 05/23/19 08:59 Last Admin: 04/27/19 08:58 Dose: 500 mcg Documented by: Hydroxyzine HCl (Vistaril) 25 mg PO Q4H PRN PRN Reason: Anxiety Stop: 05/23/19 08:14 Hydroxyzine HCl (Vistaril) 50 mg PO HSZ PRN PRN Reason: Insomnia Stop: 05/23/19 08:14 Magnesium Hydroxide (Milk Of Magnesia) 30 ml PO DAILY PRN PRN Reason: Heartburn Stop: 05/23/19 08:19 Magnesium Oxide (Mag-Ox) 400 mg PO DAILY MAG Stop: 05/23/19 08:59 Last Admin: 04/27/19 08:58 Dose: 400 mg Documented by: Miscellaneous (Remove Nicoderm Patch) 1 ea N/A HS MAG Stop: 05/23/19 21:59 Last Admin: 04/26/19 20:56 Dose: 1 ea Documented by: Multivitamins (Multivitamin Tab) 1 tab PO DAILY MAG Stop: 05/23/19 08:59 Last Admin: 04/27/19 08:58 Dose: 1 tab Documented by: Nicotine (Nicoderm Cq) 14 mg TD QAM MAG Stop: 05/23/19 08:59 Last Admin: 04/27/19 08:58 Dose: 14 mg Documented by: Olanzapine (Zyprexa) 10 mg IM HS PRN PRN Reason: Undecided Stop: 05/23/19 08:19 Pyridoxine HCl (Vitamin B-6) 100 mg PO DAILY MAG Stop: 05/23/19 08:59 Last Admin: 04/27/19 08:58 Dose: 100 mg Documented by: Risperidone (Risperdal M) 1 mg PO BID PRN PRN Reason: psychosis Stop: 05/23/19 08:19 Sodium Chloride (Gregory Nasal) 1 - 2 sprays NA PRN PRN PRN Reason: Nasal Dryness/Congestion Stop: 05/23/19 08:19 Mental Health & Subst Abuse Tx Therapist Name of Therapist: Denies Heat Set Operator Name of Heat Set Operator: Shruti Lopez Phone Number for Heat Set Operator: Case Management Appointment Comment: [id number], [place] [address] Post Discharge Appointments Primary Care Physician Name Of Family Doctor: Dr. Lopez Contact Information Discharge Discharge Address: [address] [place] [address], [place] [address] CPT Code CPT Code 17671 (1) Schizophrenia Schizophrenia type: paranoid schizophrenia Qualified Code(s): F20.0 - Paranoid schizophrenia (2) Hypertension Hypertension type: essential hypertension Qualified Code(s): I10 - Essential (primary) hypertension
[2019-04-27] MEDS: cloNIDine HCL 0.1 MG TAB PO SCH (22:01)
[2019-04-28] MEDS: MAGNESIUM OXIDE 400 MG TAB PO SCH (08:14)
[2019-04-28] MEDS: MULTIVITAMIN TAB PO SCH (08:15)
[2019-04-28] MEDS: PYRIDOXINE HCL 50 MG TAB PO SCH (08:15)
[2019-04-28] MEDS: CYANOCOBALAMIN 500 MCG TABLET (VITAMIN B-12) PO SCH (08:15)
[2019-04-28] MEDS: NICOTINE 14 MG/24 HR PATCH TD SCH (08:17)
--- NOTE | 2019-04-28 11:01 | Psychiatric Progress Note ---
Date of Service April 28, 2019 Impression / Recommendations Impression Patient remains uncooperative, refusing most groups. He briefly had a roommate, but was placed back in a private room after multiple episodes of going into other patient's rooms and staring at them, once wearing nothing but a towel. His prison bed was relinquished due to ongoing psychotic symptoms and unwillingness to engage in treatment, and although he has been accepted at the [facility] since 04/02/2019, we still do not have a bed date. He is refusing antipsychotic medication, and we have not seen clear evidence that the patient responds favorably to any medications. At this point would have to force IM antipsychotics, which limits medication options. The plan had been to transition him to oral paliperidone with a plan to use Invega Sustenna if effective, and there is no immediate acting injectable form of paliperidone. The plan is for the patient to be transferred for long-term psychiatric hospitalization, given his inability to cooperate with treatment, given his inability to attend his own physical needs without the availability of the full spectrum of psychiatric services at the inpatient level of care, and ongoing psychosis with auditory hallucinations and paranoia. (1) Schizophrenia: the interview.02/25 - Continue home medication regimen - as refusing offerings of his antipsychotic, will likely require olanzapine IM (or alternative agent) over objection, given clear evidence of paranoia and delusional thought process - previously stabilized on this medication - Pt agreeable to taking all other medications, with exception of antipsychotic as mentioned above - Admitted to a locked inpatient behavioral health unit, on q15 minute safety checks - Encourage medication initiation/adjustments as indicated - Encourage participation in group and recreational therapies - Gather collateral information from outpatient providers and prison staff - Suggest family meeting to involve outpatient supports in safety planning - Reschedule appropriate aftercare appointments 02/26 -Patient indicates willingness to sign a release for the [facility] prison, will get collateral from their staff. -File for 303 involuntary commitment to be held tomorrow. -Recommend medications over objection, with an IM Zyprexa backup for refusal of oral medication. Involve outpatient treatment team to discuss ways to improve stability and compliance; consider long-acting injectable antipsychotic. -Order fasting labs for monitoring on an atypical antipsychotic once patient is more cooperative. 02/27 -The patient was retrained at his involuntary commitment hearing (303) this morning. -He has continuously and consistently refused psychiatric medications to date. However, today, when I explained that that a option that might become necessary in his case is medication over objection, and an intramuscular form, the patient said that he understood and that he would try medications that I prescribe. His initial preference would be olanzapine, but because olanzapine is not available in a long acting depot form, we would first like to try aripiprazole. He indicates that he is taken aripiprazole in the past and has been able to tolerate it, although he does not believe that it has been particularly helpful. -A trial dose of aripiprazole 15 mg by mouth, as a one-time dose, has been ordered and he assessed for efficacy. 02/28 -Appears to be tolerating initiation of Abilify so far. Remains delusional, paranoid. May consider further titration tomorrow -Aricept discontinued at patient's request on 02/27/2019. The medication has not been demonstrated to be efficacious for cognitive impairment associated with long-standing schizophrenia however we should be vigilant for slowing of mentation following discontinuation. 03/01 Patient fixated and irrational regarding access to clothing item as above today. Hospital environment becoming incorporated and delusions. Consider possibility that the aripiprazole is contributing to activation. We will increase to 20 mg tomorrow and also start Risperdal 1 mg p.o. twice daily as as needed. 03/02 - Continue with aripiprazole at 20mg daily, consider need for further titration - if tolerating and effective, eventual plan will be for conversion to Abilify Maintena - Pt has not yet utilized risperidone 03/03 - Increase aripiprazole to 25mg (equivalent to 30mg pill) and change to liquid formulation to decrease risk of cheeking/nonadherence, as patient does not believe he needs medication and had been noncompliant prior to hospitalization. - Fasting glucose and lipid profile ordered for tomorrow for monitoring on an atypical antipsychotic. - Private room due to psychosis, agitation, and inappropriate disrobing/sexual behavior. - Meeting with BCM and CRR staff when patient able to tolerate. 03/04 - Continue aripiprazole 25mg liquid (30mg pill equivalent) and continue to observe for improvement in thought process/content - consider conversion to Maintena if effective, versus trial of another agent if improvement remains limited - Fasting labs reviewed - all values WNL - Continue medically necessary private room - Request meeting with CRR staff, in order to obtain details about patient's proximity to baseline 03/05 -Patient refusing liquid aripiprazole, but agrees to take the pill: Ordered 30 mg daily. -Schedule meeting with his case operator, CRR and psych rehab staff. Consider involuntary outpatient commitment at the time of discharge. 03/06 -The patient has improved in that he is more reality based at this point. He continues to harbor fixed, systematized delusions, but is generally able to focus on reality based topics. -Although the patient tells me that he does not feel that aripiprazole has been effective, he is able to accept my opinion in the opinion of the staff that he has improved in response to aripiprazole. -The patient's main objection to aripiprazole oral solution is that he does not like the way it tastes, and within this context, he tells us that he is willing to accept Abilify Maintenaand requests that it be injected into his buttock. Abilify Maintena 300 mg IM ordered, and oral Abilify discontinued. We will resume oral Abilify if the patient subsequently changes his mind and refuses the injection. 03/07 resuming abilfiy oral given his refusal of FARAH form of abilify 03/08 is taking abilify po form but refusing abilify maintena form. advise close monitoring for potential of checking given pt's tendency to not want to take medications. 03/09 -The patient is flatly refusing to take aripiprazole in the form of Abilify Maintena. He is also been hesitant to take oral Abilify, but has been doing so. -The patient's lack of cooperation is thought possibly to be related to an un-expressed desire to not be discharged back to the community. He told me today that he left his meeting with his community providers after a few seconds because "just the side of them made me extremely anxious. My pulse elevated to 140." Later, he told me that he was still anxious about it and his pulse was "still around 130." The patient allowed me to take his pulse, and it was approximately 76. At that point he said, "did I say pulse? I meant systolic blood pressure." And when I pointed out that his systolic blood pressure of 130 is not considered to be a particular concern, he said "I mean diastolic." -Our hope had been that the patient would agree to accept a Depo form of medication. He was refusing Haldol Decanoate because of various side effects. Risperidone constant was ruled out as a first-line Depo medication because of the frequency of administration (the patient tends to get into power struggles over medications) and because he says that he is sensitive to "big needles." Invega would be an option, but currently the patient is being so uncooperative that our concern would be that he would cheek the oral tablets that we would have to give him first. Accordingly, the new strategy will be to discontinue Abilify, and resume olanzapine with olanzapine IM over objection if necessary. We will begin the olanzapine Zydis 20 mg at bedtime 03/10 -The patient took the prescribed dose of olanzapine Zydis 20 mg at bedtime last night. Today, he tells me that it "did not help at all." However, staff report that he has been somewhat more agreeable, more pleasant, and less par anoid today. -As he has with other providers, today he told me that I should have given him olanzapine 5 mg "to start", and I explained that he was already on olanzapine 20 mg when he came into the hospital and we know that he is able to tolerate that dose. He tells me that he did, in fact tolerate the dose and is not aware of any side effects, but, somewhat illogically, insisted that the dose was "too high for a starting dose." 03/11 - Continue current medication regimen at this time - olanzapine 20mg daily - Encourage participation in the milieu and in group programming as tolerated 03/12 -Continue current medication regimen. The patient's condition has not yet improved. -The patient does participate in select groups, but often tends to be disruptive. 03/13 -Today, the patient seems to be somewhat more cooperative and less frankly delusional. It was possible to engage in a mostly reality based conversation for 5 or 10 minutes at a time. Also, although he was unhappy with me when I refused to provide him with a dose of Valium for anxiety, he was able to remain pleasant and calm at this time, did not storm from the room." 03/14 and 03/15 -no change in medication will work on therapeutic alliance given patient is not participating 03/16 -304 involuntary commitment granted. -Patient remains completely uncooperative with treatment, refused his Zyprexa Zydis last evening, but then ultimately took it before he received the injection. I have a high suspicion for cheeking of antipsychotic medication, and we will continue to be vigilant with mouth checks, and work towards a long- acting injectable. 03/17 -Patient has been on Zyprexa 20 mg at bedtime for 1 week, with limited response. He is refusing to discuss other medication options. Per records, he has been prescribed up to 30 mg olanzapine in the past, so will increase his dose to this previously tolerated dose, as it is 1 of the few medications he has been willing to take. Continue IM backup for refusal, and Zyprexa Zydis formulation to decrease risk of cheeking. He is not compliant with mouth checks, but have asked staff to try to observe him for 10 minutes after taking the Zydis to ensure he is not spitting it out before it dissolves. 03/18 -Continue Zyprexa Zydis 30 mg at bedtime with IM backup. Consider switch to a different medication (?oral paliperidone with IM backup) if irritability and agitation continues. He has tried virtually every atypical antipsychotic and reports none of them were effective (although some trials were short due to nonadherence) and has a history of dystonia on haloperidol. Clozapine would be a reasonable choice, but he has been unwilling to even discuss medication options. -Consider some component of cognitive decline which could be contributing to his worsening presentation and will need to be monitored and worked up further once he is more psychiatrically stable. -Refer to [facility] in the event that he does not improve and long-term inpatient treatment is needed. 03/19 - Proceed with [facility] referral. 03/20 - Continue current medication regimen; patient refused EKG and CXR yesterday - refused again today - Continue attempts to gather information to make a referral to [facility] 03/23 - Proceed with [facility] referral - patient has refused EKG and CXR for multiple attempts. We will send most recent tests available - Continue current medication regimen at this time 03/24 -Attempted to hold diversion meeting with his outpatient [facility], prison director, and the [facility]ID; patient refused to attend or participate in the meeting. 03/25 - 03/26 - Continue treatment plan as above - no change in patient's condition and he remains unwilling to participate meaningfully in treatment - Continue with [facility] referral 03/27 -The patient has been informed that the plan at this point is to transfer him to [facility] for long-term inpatient psychiatric treatment, given his refusal to adhere with treatment and his associated behaviors in the community when not adherent with psychiatric treatment. -The patient continues to refuse mouth checks after given dosages of Zyprexa Zydis, and there is some question regarding whether he is actually ingesting this medication. He also would not cooperate with laboratory testing. -There has been a question regarding the patient's cognitive functions, and prior to admission he had been taking Aricept. When he does cooperate with this, I have not seen evidence of any substantial cognitive impairment. He may have mild cognitive impairment, but does not fully cooperate with formal cognitive assessment. He easily recalls the names of his providers, the names of the medications he is taking, the names of the various infectious agents that he believes are causing some of his psychiatric symptoms, the names of certain chemicals that he believes will rid him of the reference to infections, and is able to discuss current events such as recent news items. His assertion that he wants to return to his apartment in the community seems belied by his steadfast refusal to cooperate with those interventions I would make it possible for him to return, and there is some suspicion that although the patient remains floridly psychotic he may also be intentionally sabotaging discharge. 03/28 - 03/30 -There is been no cell changer the past 2 weeks, and long-term inpatient treatment at the [facility] is indicated. 03/31 - Continue current medication regimen - Pt briefly verbalized willingness for FARAH, but was not agreeable to medication adjustments to allow for this to be possible - If he should change his mind; recommendation is for trial of Invega orally to establish tolerability, then consideration for Invega Sustenna - unwilling for this today 04/01 - 04/03 - Continue current medication regimen - Continues to refuse FARAH, will continue discussion daily as this is the reported preference of his CRR 04/04 -Questionable positive PPD measuring 13 mm but history of confinement places him at higher risk. Patient refused chest x-ray today but we will reapproach. No active symptoms of infection. Order for sputum culture and smear today for confirmation. 04/05 -PPD now appears negative. Would suggest follow through with sputum smear and culture for confirmation as previously ordered -Continue treatment plan as above 04/06 - PPD reportedly negative, patient unable to follow-up with sputum smear - therefore discontinued - Continue medication regimen as above - unwilling to discuss conversion to an FARAH - Meeting today with representation from [facility] to discuss discharge planning 04/07 - Continue medication regimen as above - remains unwilling to discuss changes - Additional meeting with CRR and CM scheduled for next week - We have been regularly assessing patient's condition and appropriateness to go outside since his 30-day treatment plan review. As patient continues to be unwilling to participate in a meaningful conversation with providers regarding his condition, we continue to be unable to determine if he is appropriate to be taken off the unit - therefore will await ability to discuss the topic in a meaningful way prior to making this determination. Will continue regular evaluation. 04/08 - 04/12 - Continue current medication regimen, as patient unwilling to discuss changes - Attempted again to determine if appropriate to go outside, patient unwilling to participate in conversation despite being told the goal of allowing him to go outside - Meeting with CM and CRR director scheduled for 04/13 at 1030 04/13 - Continue Zyprexa 30mg daily - unwilling to engage in conversation to discuss changes - Remains unwilling to engage in conversation to determine if he is appropriate to go outside, he has been made aware this is a possibility for him - Meeting for attempted diversion resulted in decision to no longer hold patient's CRR bed, [facility] admission is supported based on little to no improvement since admission and limited willingness to engage in conversations regarding medication adjustments - We have been asked to attempt to get a QuantiFERON-TB Gold Plus test, despi te negative PPD reading within acceptable timeframe - pt unwilling to engage in conversation to obtain consent, further indicating why long-term inpatient psychiatric hospitalization is necessary. Will continue to attempt to gain consent for this testing to be completed 04/15 -The patient is slightly more communicative today and that he does answer at least one question which was whether he would be in agreement if we offered him a drug holiday from olanzapine. His response was in the affirmative.. He also said "thank you." -The patient continues to appear suspicious and he clearly is angry at and unwilling to cooperate with staff. He is particularly bumptious with individuals who he sees as not fully trained and fully qualified. -The plan remains transfer to the [facility] for long-term psychiatric care. Our hope remains that we will be able to divert the patient from the [facility], but the patient, as noted above, remains uncommunicative and resistant. Perhaps contributing to the patient's obvious anger and distress is the fact that he has learned this week that his residential program is unwilling to allow him to return and has stopped holding his bed for other individuals. 04/16 - Continue current treatment plan, which includes holiday from olanzapine as a rapport building attempt, and due to concerns that he is more irritable and resistant to treatment - which is obviously not beneficial for his overall condition. - Attempted to communicate with the patient today via written/printed text - will add addendum to this note if patient was willing to complete the sheet and respond to questions 04/21 -Patient remains uncooperative and unwilling to participate in interviews, but has been out of his room more and attending some groups. He remains unw illing to discuss treatment options, including antipsychotic medication. 04/22 - Patient remains unwilling for medications, but is interacting with peers appropriately and attending groups. Will try discontinuing private room and placing him with a roommate, is perhaps increased socialization will be therapeutic for him. 04/23 -no change, patient still unwilling for medications(other than marijuana and benzos) 04/24 -The patient remains angry, suspicious, and largely uncommunicative. He spoke briefly with the attending psychiatrist today in order to request privileges to go outdoors with staff, and was able to cooperate with a fresh air break, but subsequently was angry, bumptious, and willing to cooperate with assessments. 04/25 - valium 5mg dose yesterday appeared to lead to some disinhibited verbally agitated behavior, with the valium dose being discontinued following that one dose. Pt is fixated on valium and on temazepam. refusal to take other medications with. Handling a roommate decently currently. Pt refusing to attend groups. Limited engagement with peers and staff occurring. no change to plan today 04/26 no change to plan today 04/27 -The patient cooperated with an interview today after several weeks of flatly refusing, sometimes rudely refusing to speak to providers. Today, the patient not voiced any delusional material and was able to specifically answer questions regarding perceptual disturbances. 04/28 -no change. (2) Substance abuse: 02/25 - Pt has reported history of substance abuse, and recommendation has consist ently been for avoidance of substances with significant abuse potential. - PDMP queried - most recent prescriptions below - lorazepam 0.5mg #60 tabs for 30 day supply - Dr. Alves - filled 02/12/2019 - alprazolam 0.5mg #90 tabs for 30 day supply - Dr. Lopez - filled 01/16/2019 - temazepam 30mg #30 caps for 30 day supply - Dr. Lopez - filled 01/16/2019 - Will continue lorazepam 0.5mg BID prn on admission, as only medication that is seemingly active - toxicology screen is negative for benzodiazepines, which questions if he has been taking the medication appropriately - Ideally will taper and discontinue the lorazepam, as recommendation remains that substances with abuse potential be avoided 02/26 -The patient's outpatient providers, during a meeting this morning, report that the patient tends to successfully convince physicians to prescribe benzodiazepines for him and that, in the past, he has abused him to the degree that he is practically obtunded. 02/27 -A repeat check of the PDMP reveals that the patient is consistently being prescribed lorazepam 0.5 mg twice daily (number 60/month) by a Dr. Brent Alves. He is also being prescribed alprazolam 0.[address] mg [address] Jeff Lopez, with the most recent previous prescription of alprazolam being on 01/16/[address] Lopez also prescribed temazepam 30 mg capsules #30 on 01/16/2019. According to his residential providers, no temazepam capsules were found among the patient's belongings. His most recent prescription for lorazepam 0.5 mg tablets was filled on 02/12/2019. 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 In the past, he reportedly has used clonazepam and temazepam. -I advised the patient that because of his history of misuse of benzodiazepines we would not be prescribing benzodiazepines during his hospital stay. An as needed order for lorazepam has not been used during hospital stay, and I discontinued the order today. 03/02 - Will need to coordinate care with his PCP and outpatient psychiatrist prior to discharge regarding the above. 03/04 - Charge nurse spoke with the above offices regarding concern for continued benzodiazepine prescriptions - Records will be faxed to their offices on discharge, as all benzodiazepines were discontinued during this hospitalization 03/06 -The patient did not request benzodiazepines and did not complain of anxiety today. I suggested to him that perhaps Abilify is also helping with anxiety in his case, and he responded by saying "perhaps." 03/09 -Today, the patient is insisting that what he needs is "benzodiazepines," and explains that the reason he "needs" benzodiazepines is that he has "benzodiazepine receptors," and that he is the only medications that work. He is unable to process warnings about the risks of benzodiazepines in the elderly, including increased risk of falls and mortality. Clearly, the patient is seeking benzodiazepines and has no insight into the associated risks. He also insists that he has never had trouble with benzodiazepines in the past, although there is well-documented of this. 03/10 -Today, the patient repeated his insistence that he needs benzodiazepines and that benzodiazepines are the only medications that work because he has "benzodiazepine receptors." After being told that everyone has central nervous system receptors to which benzodiazepines may attach, he replied, "That may be, but some of people need to have benzodiazepines forearm benzodiazepine receptors. 03/12 -Continues to request Benzodiazepines. 03/13 -Requests Valium for his "benzodiazepines receptors." 03/27 -Refuses to cooperate with assessment today, but has recently told staff that he needs "either Valium or Ativan." -The patient apparently has no working insight into his history of abuse of prescription medications (benzodiazepines). 04/15 -The patient has not reference to request for benzodiazepines recently. However, the context is that he has not communicated much of anything directly, a other than the occasional need for self-care items. 04/24 -Today, the patient repeats his request for benzodiazepines, and insists that he is "supposed" to be taking diazepam 10 mg 3 times a day and temazepam for sleep every night. 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 Unfortunately, the exact opposite seems to have occurred. Not only was the patient was uncooperative subsequent to a dose of Valium, he seems to have been disinhibited by it and shouting "get out" or "get away" several times when approached by staff 04/25 - pt focused on seeking temazepam, or Valium 04/27 -The patient does have a history of substance dependence. However, the current plan and expected disposition is for the patient to be transferred to an extended care inpatient psychiatric unit where abuse of prescribed medications is unlikely to occur. Today, the patient calmly requests temazepam and says that he has tried a number of different sleeping pills, but "that is the one that works." The patient is also able to clearly say that he understands that temazepam is physically habituating that there are associated risks associated with temazepam including, but not limited to, a risk of falls, accidents, confusion, and depression. He tells us that at prescribed dosages he has not had any of these problems in the past. -Today, I agreed to a trial of temazepam 15 mg at bedtime, a dose that the patient says has been effective in the past. (3) Hypertension: 02/25 - Continue home dose of clonidine 0.1mg qHS 03/01 Watch mildly elevated blood pressures as patient has been refusing clonidine 03/03 - BP normal past two days, and low today 03/10 -The patient's blood pressure today was 136/73. His pulse was 71 03/14 - elevated BP it is not urgent but will need monitored. 03/15 - BP WNL 03/26 - BP continues to be WNL 04/02 - BP remains within normal limits; continue daily vitals per standard admission order set - Will consider acute phase of this problem resolved at this time Risk Factors Assessment Male: Yes : Yes Do You Have Access To A Gun?: No Health Problems: Yes Mental Health Diagnoses: Yes Substance Use Disorders: Yes Protective Factors Assessment Religion Beliefs: No : No Responsible for Young Children: No Employed: No Stable Relationships: No Supportive Family: No Good Rapport with Provider: No Absence of Any Risk Factors Above: No Interval History Identifying Information SCOTT ROBERTO is a 73-year-old M who currently lives at a [facility] in [place], has a history of schizophrenia, and is known to our unit from several previous admissions, most recently in 09/2016. He was admitted on 02/24/19 16:40 on a 302 involuntary commitment for exacerbation of schizophrenia and heightened paranoia resulting in belief he needed to hide in a dumpster to seek refuge from impending bombings. He was found by [facility] staff and brought to the ED by police, and is on a 304 involuntary commitment as of 03/16/19. He has been referred to [facility] for prison treatment. Chief Complaint "Good". Review of Systems Sleep Information Total Hours of Sleep: 6.5 Sleep Comments: pt on q-15 minute checks Meal Information Percent Meal Consumed - Breakfast: 100 Percent Meal Consumed - Lunch: 100 Percent Meal Consumed - Dinner: 100 Nutrition Comment: per meal record Subjective Subjective Patient was seen & assessed and interval progress reviewed with nursing and social work. Staff report he continues to isolate in his room and does not interact spontaneously with others. He reported ringing in his ears and auditory hallucinations of voices to staff. Last evening, a female patient reported that the patient came into her room during the day and that she awoke to find him staring at her. Later in the day he again entered her room after showering, with nothing but a towel on, and again proceeded to stare at her. When staff discussed this with him, he stated that he was "tired and mixed up." He also reported that once he realized his mistake, instead of leaving the room, he went into the bathroom and got dressed. He was apologetic and agreed not to enter rooms other than his own in the future. He was reoriented to his room and encouraged to use the sign with names on it outside of the room for assistance in identifying rooms in case of confusion. Due to boundary issues he was placed on a private room. When given his evening meds, he accepted the clonidine tablet from the nurse, but then said it on his nightstand and refused to take it or to give it back. He was becoming irritable, so the nurse left to get assistance from the charge nurse. When staff returned, the pill was gone, and could not be found despite searching the room. He then said that he took it. On my assessment, he reports that he is "fine," denies experiencing hallucinations, suicidal and homicidal thoughts, but says that he is not sleeping at all and that is why he has been confused at times. When it is reflected that nursing staff are observing him to be asleep at night, he insists that this is not true. He continues to decline meds saying that he does not need them. 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 job, really needs to go back to school to get that job." Physical Exam Psychiatric Orientation: alert Partially cooperative, but gives superficial answers, and conflicting reports (reported auditory hallucinations to nursing staff, but denied to me) Apperance: appropriately dressed (Wearing the same clothes since admission) and appeared stated age Eye Contact: good eye contact Motor Behavior: steady gait and station and no abnormal motor movements Minimal speech, slightly irritable tone Affect: + mood not congruent with affect Irritable edge "Good, fine." Thought Process: goal directed thought process Paucity of thought content, answers with vague statements Suicidal Thoughts: denies suicidal thoughts Homicidal Thoughts: denies homicidal thoughts Hallucinations: no auditory hallucinations (Although reported auditory hallucinations of voices and ringing in his ears to staff) Cognition: attention grossly intact and language grossly intact; + recent memory not intact Insight: + impaired insight Judgement: + impaired judgement Vital Signs (Past 24 Hours) Last Vital Signs Temp 36.5 C 04/27/19 06:59 Pulse 64 04/27/19 06:59 Resp 18 04/27/19 06:59 BP 109/67 04/27/19 06:59 Pulse Ox 96 02/24/19 08:10 Results & Data Current Inpatient Medications Current Inpatient Medications: Current Inpatient Medications Acetaminophen (Tylenol) 650 mg PO Q4H PRN PRN Reason: Headache or Minor Fever Stop: 05/23/19 08:14 Al Hydrox/Mg Hydrox/Simethicone (Maalox) 30 ml PO Q4H PRN PRN Reason: GI Upset Stop: 05/23/19 08:14 Benztropine Mesylate (Cogentin) 0.5 mg PO BID PRN PRN Reason: dystonia Stop: 05/23/19 08:14 Bismuth Subsalicylate (Kaopectate) 15 ml PO PRN PRN PRN Reason: Loose Stool Stop: 05/23/19 08:14 Clonidine HCl (Catapres) 0.1 mg PO HS MAG Stop: 05/23/19 21:59 Last Admin: 04/27/19 22:01 Dose: Not Given Documented by: Cyanocobalamin (Vitamin B-12) 500 mcg PO DAILY MAG Stop: 05/23/19 08:59 Last Admin: 04/28/19 08:15 Dose: 500 mcg Documented by: Hydroxyzine HCl (Vistaril) 25 mg PO Q4H PRN PRN Reason: Anxiety Stop: 05/23/19 08:14 Hydroxyzine HCl (Vistaril) 50 mg PO HSZ PRN PRN Reason: Insomnia Stop: 05/23/19 08:14 Magnesium Hydroxide (Milk Of Magnesia) 30 ml PO DAILY PRN PRN Reason: Heartburn Stop: 05/23/19 08:19 Magnesium Oxide (Mag-Ox) 400 mg PO DAILY MAG Stop: 05/23/19 08:59 Last Admin: 04/28/19 08:14 Dose: 400 mg Documented by: Miscellaneous (Remove Nicoderm Patch) 1 ea N/A HS MAG Stop: 05/23/19 21:59 Last Admin: 04/27/19 22:01 Dose: 1 ea Documented by: Multivitamins (Multivitamin Tab) 1 tab PO DAILY MAG Stop: 05/23/19 08:59 Last Admin: 04/28/19 08:15 Dose: 1 tab Documented by: Nicotine (Nicoderm Cq) 14 mg TD QAM MAG Stop: 05/23/19 08:59 Last Admin: 04/28/19 08:17 Dose: 14 mg Documented by: Olanzapine (Zyprexa) 10 mg IM HS PRN PRN Reason: Undecided Stop: 05/23/19 08:19 Pyridoxine HCl (Vitamin B-6) 100 mg PO DAILY MAG Stop: 05/23/19 08:59 Last Admin: 04/28/19 08:15 Dose: 100 mg Documented by: Risperidone (Risperdal M) 1 mg PO BID PRN PRN Reason: psychosis Stop: 05/23/19 08:19 Sodium Chloride ([place] Nasal) 1 - 2 sprays NA PRN PRN PRN Reason: Nasal Dryness/Congestion Stop: 05/23/19 08:19 Mental Health & Subst Abuse Tx Therapist Name of Therapist: Denies Vendor Representatives Name of Vendor Representatives: Shruti Guadalupe Lowell Mal Lopez Phone Number for Vendor Representatives: Case Management Appointment Comment: [phone], [place] [address] Post Discharge Appointments Primary Care Physician Name Of Family Doctor: Dr. Lopez Contact Information Discharge Discharge Address: [address] [place] [address], [place] [address] CPT Code CPT Code 63161 (1) Schizophrenia Schizophrenia type: paranoid schizophrenia Qualified Code(s): F20.0 - Paranoid schizophrenia (2) Hypertension Hypertension type: essential hypertension Qualified Code(s): I10 - Essential (primary) hypertension
[2019-04-28] MEDS ORDERED: TEMAZEPAM 15 MG CAPSULE PO PRN (12:29)
[2019-04-28] MEDS: cloNIDine HCL 0.1 MG TAB PO SCH (21:38)
--- NOTE | 2019-04-29 07:11 | Psychiatric Progress Note ---
Date of Service April 29, 2019 Impression / Recommendations Impression Patient remains uncooperative, refusing most groups. He briefly had a roommate, but was placed back in a private room after multiple episodes of going into other patient's rooms and staring at them, once wearing nothing but a towel. His senior care bed was relinquished due to ongoing psychotic symptoms and unwillingness to engage in treatment, and although he has been accepted at the [facility] since 04/02/2019, we still do not have a bed date. He has been refusing antipsychotic medications and has not taken anything in the past 2 weeks, but today agreed to a trial of ziprasidone. The plan is for the patient to be transferred for long-term psychiatric hospitalization, given his inability to cooperate with treatment, given his inability to attend his own physical needs without the availability of the full spectrum of psychiatric services at the inpatient level of care, and ongoing psychosis with auditory hallucinations and paranoia. (1) Schizophrenia: the interview.02/25 - Continue home medication regimen - as refusing offerings of his antipsychotic, will likely require olanzapine IM (or alternative agent) over objection, given clear evidence of paranoia and delusional thought process - previously stabilized on this medication - Pt agreeable to taking all other medications, with exception of antipsychotic as mentioned above - Admitted to a locked inpatient behavioral health unit, on q15 minute safety checks - Encourage medication initiation/adjustments as indicated - Encourage participation in group and recreational therapies - Gather collateral information from outpatient providers and senior care staff - Suggest family meeting to involve outpatient supports in safety planning - Reschedule appropriate aftercare appointments 02/26 -Patient indicates willingness to sign a release for the [facility] senior care, will get collateral from their staff. -File for 303 involuntary commitment to be held tomorrow. -Recommend medications over objection, with an IM Zyprexa backup for refusal of oral medication. Involve outpatient treatment team to discuss ways to improve stability and compliance; consider long-acting injectable antipsychotic. -Order fasting labs for monitoring on an atypical antipsychotic once patient is more cooperative. 02/27 -The patient was retrained at his involuntary commitment hearing (303) this morning. -He has continuously and consistently refused psychiatric medications to date. However, today, when I explained that that a option that might become necessary in his case is medication over objection, and an intramuscular form, the patient said that he understood and that he would try medications that I prescribe. His initial preference would be olanzapine, but because olanzapine is not available in a long acting depot form, we would first like to try aripiprazole. He indicates that he is taken aripiprazole in the past and has been able to tolerate it, although he does not believe that it has been particularly helpful. -A trial dose of aripiprazole 15 mg by mouth, as a one-time dose, has been ordered and he assessed for efficacy. 02/28 -Appears to be tolerating initiation of Abilify so far. Remains delusional, paranoid. May consider further titration tomorrow -Aricept discontinued at patient's request on 02/27/2019. The medication has not been demonstrated to be efficacious for cognitive impairment associated with long-standing schizophrenia however we should be vigilant for slowing of mentation following discontinuation. 03/01 Patient fixated and irrational regarding access to clothing item as above today. Hospital environment becoming incorporated and delusions. Consider possibility that the aripiprazole is contributing to activation. We will increase to 20 mg tomorrow and also start Risperdal 1 mg p.o. twice daily as as needed. 03/02 - Continue with aripiprazole at 20mg daily, consider need for further titration - if tolerating and effective, eventual plan will be for conversion to Abilify Maintena - Pt has not yet utilized risperidone 03/03 - Increase aripiprazole to 25mg (equivalent to 30mg pill) and change to liquid formulation to decrease risk of cheeking/nonadherence, as patient does not believe he needs medication and had been noncompliant prior to hospitalization. - Fasting glucose and lipid profile ordered for tomorrow for monitoring on an atypical antipsychotic. - Private room due to psychosis, agitation, and inappropriate disrobing/sexual behavior. - Meeting with [facility] and [facility] staff when patient able to tolerate. 03/04 - Continue aripiprazole 25mg liquid (30mg pill equivalent) and continue to observe for improvement in thought process/content - consider conversion to Maintena if effective, versus trial of another agent if improvement remains limited - Fasting labs reviewed - all values WNL - Continue medically necessary private room - Request meeting with [facility] staff, in order to obtain details about patient's proximity to baseline 03/05 -Patient refusing liquid aripiprazole, but agrees to take the pill: Ordered 30 mg daily. -Schedule meeting with his disease case manager, [facility] and psych rehab staff. Consider involuntary outpatient commitment at the time of discharge. 03/06 -The patient has improved in that he is more reality based at this point. He continues to harbor fixed, systematized delusions, but is generally able to focus on reality based topics. -Although the patient tells me that he does not feel that aripiprazole has been effective, he is able to accept my opinion in the opinion of the staff that he has improved in response to aripiprazole. -The patient's main objection to aripiprazole oral solution is that he does not like the way it tastes, and within this context, he tells us that he is willing to accept Abilify Maintenaand requests that it be injected into his buttock. Abilify Maintena 300 mg IM ordered, and oral Abilify discontinued. We will resume oral Abilify if the patient subsequently changes his mind and refuses the injection. 03/07 resuming abilfiy oral given his refusal of FARAH form of abilify 03/08 is taking abilify po form but refusing abilify maintena form. advise clos e monitoring for potential of checking given pt's tendency to not want to take medications. 03/09 -The patient is flatly refusing to take aripiprazole in the form of Abilify Maintena. He is also been hesitant to take oral Abilify, but has been doing so. -The patient's lack of cooperation is thought possibly to be related to an un-expressed desire to not be discharged back to the community. He told me today that he left his meeting with his community providers after a few seconds because "just the side of them made me extremely anxious. My pulse elevated to 140." Later, he told me that he was still anxious about it and his pulse was "still around 130." The patient allowed me to take his pulse, and it was approximately 76. At that point he said, "did I say pulse? I meant systolic b lood pressure." And when I pointed out that his systolic blood pressure of 130 is not considered to be a particular concern, he said "I mean diastolic." -Our hope had been that the patient would agree to accept a Depo form of medication. He was refusing Haldol Decanoate because of various side effects. Risperidone constant was ruled out as a first-line Depo medication because of the frequency of administration (the patient tends to get into power struggles over medications) and because he says that he is sensitive to "big needles." Invega would be an option, but currently the patient is being so uncooperative that our concern would be that he would cheek the oral tablets that we would have to give him first. Accordingly, the new strategy will be to discontinue Abilify, and resume olanzapine with olanzapine IM over objection if necessary. We will begin the olanzapine Zydis 20 mg at bedtime 03/10 -The patient took the prescribed dose of olanzapine Zydis 20 mg at bedtime last night. Today, he tells me that it "did not help at all." However, staff report that he has been somewhat more agreeable, more pleasant, and less paranoid today. -As he has with other providers, today he told me that I should have given him olanzapine 5 mg "to start", and I explained that he was already on olanzapine 20 mg when he came into the hospital and we know that he is able to tolerate that dose. He tells me that he did, in fact tolerate the dose and is not aware of any side effects, but, somewhat illogically, insisted that the dose was "too high for a starting dose." 03/11 - Continue current medication regimen at this time - olanzapine 20mg daily - Encourage participation in the milieu and in group programming as tolerated 03/12 -Continue current medication regimen. The patient's condition has not yet improved. -The patient does participate in select groups, but often tends to be disruptive. 03/13 -Today, the patient seems to be somewhat more cooperative and less frankly delusional. It was possible to engage in a mostly reality based conversation for 5 or 10 minutes at a time. Also, although he was unhappy with me when I refused to provide him with a dose of Valium for anxiety, he was able to remain pleasant and calm at this time, did not storm from the room." 03/14 and 03/15 -no change in medication will work on therapeutic alliance given patient is not participating 03/16 -304 involuntary commitment granted. -Patient remains completely uncooperative with treatment, refused his Zyprexa Zydis last evening, but then ultimately took it before he received the injection. I have a high suspicion for cheeking of antipsychotic medication, and we will continue to be vigilant with mouth checks, and work towards a long- acting injectable. 03/17 -Patient has been on Zyprexa 20 mg at bedtime for 1 week, with limited response. He is refusing to discuss other medication options. Per records, he has been prescribed up to 30 mg olanzapine in the past, so will increase his dose to this previously tolerated dose, as it is 1 of the few medications he has been willing to take. Continue IM backup for refusal, and Zyprexa Zydis formulation to decrease risk of cheeking. He is not compliant with mouth checks, but have asked staff to try to observe him for 10 minutes after taking the Zydis to ensure he is not spitting it out before it dissolves. 03/18 -Continue Zyprexa Zydis 30 mg at bedtime with IM backup. Consider switch to a different medication (?oral paliperidone with IM backup) if irritability and agitation continues. He has tried virtually every atypical antipsychotic and reports none of them were effective (although some trials were short due to nonadherence) and has a history of dystonia on haloperidol. Clozapine would be a reasonable choice, but he has been unwilling to even discuss medication options. -Consider some component of cognitive decline which could be contributing to his worsening presentation and will need to be monitored and worked up further once he is more psychiatrically stable. -Refer to [facility] in the event that he does not improve and long-term inpatient treatment is needed. 03/19 - Proceed with [facility] referral. 03/20 - Continue current medication regimen; patient refused EKG and CXR yesterday - refused again today - Continue attempts to gather information to make a referral to [facility] 03/23 - Proceed with [facility] referral - patient has refused EKG and CXR for multiple attempts. We will send most recent tests available - Continue current medication regimen at this time 03/24 -Attempted to hold diversion meeting with his outpatient BCM, senior care director, and the [facility] MH/ID; patient refused to attend or participate in the meeting. 03/25 - 03/26 - Continue treatment plan as above - no change in patient's condition and he remains unwilling to participate meaningfully in treatment - Continue with [place] referral 03/27 -The patient has been informed that the plan at this point is to transfer him to [facility] for long-term inpatient psychiatric treatment, given his refusal to adhere with treatment and his associated behaviors in the community when not adherent with psychiatric treatment. -The patient continues to refuse mouth checks after given dosages of Zyprexa Zydis, and there is some question regarding whether he is actually ingesting this medication. He also would not cooperate with laboratory testing. -There has been a question regarding the patient's cognitive functions, and prior to admission he had been taking Aricept. When he does cooperate with this, I have not seen evidence of any substantial cognitive impairment. He may have mild cognitive impairment, but does not fully cooperate with formal cognitive assessment. He easily recalls the names of his providers, the names of the medications he is taking, the names of the various infectious agents that he believes are causing some of his psychiatric symptoms, the names of certain chemicals that he believes will rid him of the reference to infections, and is able to discuss current events such as recent news items. His assertion that he wants to return to his apartment in the community seems belied by his steadfast refusal to cooperate with those interventions I would make it possible for him to return, and there is some suspicion that although the patient remains floridly psychotic he may also be intentionally sabotaging discharge. 03/28 - 03/30 -There is been no change person the past 2 weeks, and long-term inpatient treatment at the [facility] is indicated. 03/31 - Continue current medication regimen - Pt briefly verbalized willingness for FARAH, but was not agreeable to medication adjustments to allow for this to be possible - If he should change his mind; recommendation is for trial of Invega orally to establish tolerability, then consideration for Invega Sustenna - unwilling for this today 04/01 - 04/03 - Continue current medication regimen - Continues to refuse FARAH, will continue discussion daily as this is the reported preference of his CRR 04/04 -Questionable positive PPD measuring 13 mm but history of confinement places him at higher risk. Patient refused chest x-ray today but we will reapproach. No active symptoms of infection. Order for sputum culture and smear today for confirmation. 04/05 -PPD now appears negative. Would suggest follow through with sputum smear and culture for confirmation as previously ordered -Continue treatment plan as above 04/06 - PPD reportedly negative, patient unable to follow-up with sputum smear - therefore discontinued - Continue medication regimen as above - unwilling to discuss conversion to an FARAH - Meeting today with representation from [facility] to discuss discharge planning 04/07 - Continue medication regimen as above - remains unwilling to discuss changes - Additional meeting with CRR and CM scheduled for next week - We have been regularly assessing patient's condition and appropriateness to go outside since his 30-day treatment plan review. As patient continues to be unwilling to participate in a meaningful conversation with providers regarding his condition, we continue to be unable to determine if he is appropriate to be taken off the unit - therefore will await ability to discuss the topic in a meaningful way prior to making this determination. Will continue regular evaluation. 04/08 - 04/12 - Continue current medication regimen, as patient unwilling to discuss changes - Attempted again to determine if appropriate to go outside, patient unwilling to participate in conversation despite being told the goal of allowing him to go outside - Meeting with CM and CRR director scheduled for 04/13 at 1030 04/13 - Continue Zyprexa 30mg daily - unwilling to engage in conversation to discuss changes - Remains unwilling to engage in conversation to determine if he is appropriate to go outside, he has been made aware this is a possibility for him - Meeting for attempted diversion resulted in decision to no longer hold patient's CR[facility] bed, [place] admission is supported based on little to no improvement since admission and limited willingness to engage in conversations regarding medication adjustments - We have been asked to attempt to get a QuantiFERON-TB Gold Plus test, despite negative PPD reading within acceptable timeframe - pt unwilling to engage in conversation to obtain consent, further indicating why long-term inpatient psychiatric hospitalization is necessary. Will continue to attempt to gain consent for this testing to be completed 04/15 -The patient is slightly more communicative today and that he does answer at least one question which was whether he would be in agreement if we offered him a drug holiday from olanzapine. His response was in the affirmative.. He also said "thank you." -The patient continues to appear suspicious and he clearly is angry at and unwilling to cooperate with staff. He is particularly bumptious with individuals who he sees as not fully trained and fully qualified. -The plan remains transfer to the [facility] for long-term psychiatric care. Our hope remains that we will be able to divert the patient from the [facility], but the patient, as noted above, remains uncommunicative and resistant. Perhaps contributing to the patient's obvious anger and distress is the fact that he has learned this week that his residential program is unwilling to allow him to return and has stopped holding his bed for other individuals. 04/16 - Continue current treatment plan, which includes holiday from olanzapine as a rapport building attempt, and due to concerns that he is more irritable and resistant to treatment - which is obviously not beneficial for his overall con dition. - Attempted to communicate with the patient today via written/printed text - will add addendum to this note if patient was willing to complete the sheet and respond to questions 04/21 -Patient remains uncooperative and unwilling to participate in interviews, but has been out of his room more and attending some groups. He remains unwilling to discuss treatment options, including antipsychotic medication. 04/22 - Patient remains unwilling for medications, but is interacting with peers appropriately and attending groups. Will try discontinuing private room and placing him with a roommate, is perhaps increased socialization will be therapeutic for him. 04/23 -no change, patient still unwilling for medications(other than marijuana and benzos) 04/24 -The patient remains angry, suspicious, and largely uncommunicative. He spoke briefly with the attending psychiatrist today in order to request privileges to go outdoors with staff, and was able to cooperate with a fresh air break, but subsequently was angry, bumptious, and willing to cooperate with assessments. 04/25 - valium 5mg dose yesterday appeared to lead to some disinhibited verbally agitated behavior, with the valium dose being discontinued following that one dose. Pt is fixated on valium and on temazepam. refusal to take other medications with. Handling a roommate decently currently. Pt refusing to attend groups. Limited engagement with peers and staff occurring. no change to plan today 04/26 no change to plan today 04/27 -The patient cooperated with an interview today after several weeks of flatly refusing, sometimes rudely refusing to speak to providers. Today, the patient not voiced any delusional material and was able to specifically answer questions regarding perceptual disturbances. 04/28 -no change. 04/29 -start ziprasidone 20 mg twice daily with meals. Reviewed risks, benefits and common side effects including sedation and the need to take with food. (2) Substance abuse: 02/25 - Pt has reported history of substance abuse, and recommendation has consistently been for avoidance of substances with significant abuse potential. - PDMP queried - most recent prescriptions below - lorazepam 0.5mg #60 tabs for 30 day supply - Dr. Alves - filled 02/12/2019 - alprazolam 0.5mg #90 tabs for 30 day supply - Dr. Lopez - filled 01/16/2019 - temazepam 30mg #30 caps for 30 day supply - Dr. Lopez - filled 01/16/2019 - Will continue lorazepam 0.5mg BID prn on admission, as only medication that is seemingly active - toxicology screen is negative for benzodiazepines, which questions if he has been taking the medication appropriately - Ideally will taper and discontinue the lorazepam, as recommendation remains that substances with abuse potential be avoided 02/26 -The patient's outpatient providers, during a meeting this morning, report that the patient tends to successfully convince physicians to prescribe benzodiazepines for him and that, in the past, he has abused him to the degree that he is practically obtunded. 02/27 -A repeat check of the PDMP reveals that the patient is consistently being prescribed lorazepam 0.5 mg twice daily (number 60/month) by a Dr. Brent Alves. He is also being prescribed alprazolam 0.[address] mg [address] Jeff Lopez, with the most recent previous prescription of alprazolam being on 01/16/[address] Lopez also prescribed temazepam 30 mg capsules #30 on 01/16/2019. According to his residential providers, no temazepam capsules were found among the patient's belongings. His most recent prescription for lorazepam 0.5 mg tablets was filled on 02/12/2019. 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 In the past, he reportedly has used clonazepam and temazepam. -I advised the patient that because of his history of misuse of benzodiazepines we would not be prescribing benzodiazepines during his hospital stay. An as needed order for lorazepam has not been used during hospital stay, and I discontinued the order today. 03/02 - Will need to coordinate care with his PCP and outpatient psychiatrist prior to discharge regarding the above. 03/04 - Charge nurse spoke with the above offices regarding concern for continued benzodiazepine prescriptions - Records will be faxed to their offices on discharge, as all benzodiazepines were discontinued during this hospitalization 03/06 -The patient did not request benzodiazepines and did not complain of anxiety today. I suggested to him that perhaps Abilify is also helping with anxiety in his case, and he responded by saying "perhaps." 03/09 -Today, the patient is insisting that what he needs is "benzodiazepines," and explains that the reason he "needs" benzodiazepines is that he has "benzodiazepine receptors," and that he is the only medications that work. He is unable to process warnings about the risks of benzodiazepines in the elderly, including increased risk of falls and mortality. Clearly, the patient is seeking benzodiazepines and has no insight into the associated risks. He also insists that he has never had trouble with benzodiazepines in the past, although there is well-documented of this. 03/10 -Today, the patient repeated his insistence that he needs benzodiazepines and that benzodiazepines are the only medications that work because he has "benzodiazepine receptors." After being told that everyone has central nervous system receptors to which benzodiazepines may attach, he replied, "That may be, but some of people need to have benzodiazepines forearm benzodiazepine receptors. 03/12 -Continues to request Benzodiazepines. 03/13 -Requests Valium for his "benzodiazepines receptors." 03/27 -Refuses to cooperate with assessment today, but has recently told staff that he needs "either Valium or Ativan." -The patient apparently has no working insight into his history of abuse of prescription medications (benzodiazepines). 04/15 -The patient has not reference to request for benzodiazepines recently. However, the context is that he has not communicated much of anything directly, a other than the occasional need for self-care items. 04/24 -Today, the patient repeats his request for benzodiazepines, and insists that he is "supposed" to be taking diazepam 10 mg 3 times a day and temazepam for sleep every night. 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 Unfortunately, the exact opposite seems to have occurred. Not only was the patient was uncooperative subsequent to a dose of Valium, he seems to have been disinhibited by it and shouting "get out" or "get away" several times when approached by staff 04/25 - pt focused on seeking temazepam, or Valium 04/27 -The patient does have a history of substance dependence. However, the current plan and expected disposition is for the patient to be transferred to an extended care inpatient psychiatric unit where abuse of prescribed medications is unlikely to occur. Today, the patient calmly requests temazepam and says that he has tried a number of different sleeping pills, but "that is the one that works." The patient is also able to clearly say that he understands that temazepam is physically habituating that there are associated risks associated with temazepam including, but not limited to, a risk of falls, accidents, confusion, and depression. He tells us that at prescribed dosages he has not had any of these problems in the past. -Today, I agreed to a trial of temazepam 15 mg at bedtime, a dose that the patient says has been effective in the past. (3) Hypertension: 02/25 - Continue home dose of clonidine 0.1mg qHS 03/01 Watch mildly elevated blood pressures as patient has been refusing clonidine 03/03 - BP normal past two days, and low today 03/10 -The patient's blood pressure today was 136/73. His pulse was 71 03/14 - elevated BP it is not urgent but will need monitored. 03/15 - BP WNL 03/26 - BP continues to be WNL 04/02 - BP remains within normal limits; continue daily vitals per standard adm ission order set - Will consider acute phase of this problem resolved at this time Risk Factors Assessment Male: Yes : Yes Do You Have Access To A Gun?: No Health Problems: Yes Mental Health Diagnoses: Yes Substance Use Disorders: Yes Protective Factors Assessment Yazdanism Beliefs: No : No Responsible for Young Children: No Employed: No Stable Relationships: No Supportive Family: No Good Rapport with Provider: No Absence of Any Risk Factors Above: No Interval History Identifying Information SCOTT ROBERTO is a 73-year-old M who currently lives at a [facility] in [place], has a history of schizophrenia, and is known to our unit from several previous admissions, most recently in 09/2016. He was admitted on 02/24/19 16:40 on a 302 involuntary commitment for exacerbation of schizophrenia and heightened paranoia resulting in belief he needed to hide in a dumpster to seek refuge from impending bombings. He was found by [facility] staff and brought to the ED by police, and is on a 304 involuntary commitment as of 03/16/19. He has been referred to [facility] for intermediate designer treatment. Chief Complaint "Okay". Review of Systems Sleep Information Total Hours of Sleep: 6 Sleep Comments: pt on q-15 minute checks Meal Information Percent Meal Consumed - Breakfast: 100 Percent Meal Consumed - Lunch: 100 Percent Meal Consumed - Dinner: 100 Nutrition Comment: per meal record Subjective Subjective Patient was seen & assessed and interval progress reviewed with treatment team. Today he was seen with Davion Pizarro and Fer Newton. He is requesting to go outside with staff today, as he enjoyed this last time. Discussed the treatment recommendations for his schizophrenia: Reviewed that he has been off antipsychotic medication for 2 weeks and has refused all recommendations for treatment with an atypical or typical antipsychotic. Reviewed that our primary recommendation had been a trial of paliperidone with progression to Invega Sustenna if it was effective, but he declines this stating "it's terrible, I do not want that, they put it up your rear end." He states that he was on it in the past and that it "didn't do anything." Reviewed that we would continue to recommend treatment with an antipsychotic, and suggested a trial of ziprasidone, which he does not believe he has ever taken before. He agreed to this and we will start it today twice daily with meals. Physical Exam Psychiatric Orientation: alert and cooperative Apperance: appropriately dressed (Wearing the same clothes since admission) and appeared stated age Eye Contact: good eye contact Motor Behavior: steady gait and station and no abnormal motor movements Speech: normal rate/rhythm/volume of speech Affect: + blunted affect (With an irritable edge); + mood not congruent with affect "Fine." Thought Process: goal directed thought process Patient does not spontaneously endorse delusions, but remains paranoid regarding medications. Suicidal Thoughts: denies suicidal thoughts Homicidal Thoughts: denies homicidal thoughts Insight: + impaired insight Judgement: + impaired judgement Vital Signs (Past 24 Hours) Last Vital Signs Temp 36.7 C 04/29/19 07:00 Pulse 77 04/29/19 07:01 Resp 18 04/29/19 07:00 BP 121/74 04/29/19 07:01 Pulse Ox 96 02/24/19 08:10 Results & Data Current Inpatient Medications Current Inpatient Medications: Current Inpatient Medications Acetaminophen (Tylenol) 650 mg PO Q4H PRN PRN Reason: Headache or Minor Fever Stop: 05/23/19 08:14 Al Hydrox/Mg Hydrox/Simethicone (Maalox) 30 ml PO Q4H PRN PRN Reason: GI Upset Stop: 05/23/19 08:14 Benztropine Mesylate (Cogentin) 0.5 mg PO BID PRN PRN Reason: dystonia Stop: 05/23/19 08:14 Bismuth Subsalicylate (Kaopectate) 15 ml PO PRN PRN PRN Reason: Loose Stool Stop: 05/23/19 08:14 Clonidine HCl (Catapres) 0.1 mg PO HS MAG Stop: 05/23/19 21:59 Last Admin: 04/28/19 21:38 Dose: Not Given Documented by: Cyanocobalamin (Vitamin B-12) 500 mcg PO DAILY MAG Stop: 05/23/19 08:59 Last Admin: 04/28/19 08:15 Dose: 500 mcg Documented by: Hydroxyzine HCl (Vistaril) 25 mg PO Q4H PRN PRN Reason: Anxiety Stop: 05/23/19 08:14 Hydroxyzine HCl (Vistaril) 50 mg PO HSZ PRN PRN Reason: Insomnia Stop: 05/23/19 08:14 Magnesium Hydroxide (Milk Of Magnesia) 30 ml PO DAILY PRN PRN Reason: Heartburn Stop: 05/23/19 08:19 Magnesium Oxide (Mag-Ox) 400 mg PO DAILY MAG Stop: 05/23/19 08:59 Last Admin: 04/28/19 08:14 Dose: 400 mg Documented by: Miscellaneous (Remove Nicoderm Patch) 1 ea N/A HS AMG Stop: 05/23/19 21:59 Last Admin: 04/28/19 21:38 Dose: Not Given Documented by: Multivitamins (Multivitamin Tab) 1 tab PO DAILY MAG Stop: 05/23/19 08:59 Last Admin: 04/28/19 08:15 Dose: 1 tab Documented by: Nicotine (Nicoderm Cq) 14 mg TD QAM MAG Stop: 05/23/19 08:59 Last Admin: 04/28/19 08:17 Dose: 14 mg Documented by: Olanzapine (Zyprexa) 10 mg IM HS PRN PRN Reason: Undecided Stop: 05/23/19 08:19 Pyridoxine HCl (Vitamin B-6) 100 mg PO DAILY MAG Stop: 05/23/19 08:59 Last Admin: 04/28/19 08:15 Dose: 100 mg Documented by: Risperidone (Risperdal M) 1 mg PO BID PRN PRN Reason: psychosis Stop: 05/23/19 08:19 Sodium Chloride ([place] Nasal) 1 - 2 sprays NA PRN PRN PRN Reason: Nasal Dryness/Congestion Stop: 05/23/19 08:19 Temazepam (Restoril) 15 mg PO HSZ PRN PRN Reason: Insomnia Stop: 05/28/19 12:28 Mental Health & Subst Abuse Tx Therapist Name of Therapist: Sammy Oil Pipe Inspector Name of Oil Pipe Inspector: Shruti Lopez Phone Number for Oil Pipe Inspector: Case Management Appointment Comment: [phone], [place] [address] Post Discharge Appointments Primary Care Physician Name Of Family Doctor: Dr. Lopez Contact Information Discharge Discharge Address: [address] [place] [id number] CPT Code CPT Code 84282 (1) Schizophrenia Schizophrenia type: paranoid schizophrenia Qualified Code(s): F20.0 - Paranoid schizophrenia (2) Hypertension Hypertension type: essential hypertension Qualified Code(s): I10 - Essential (primary) hypertension
[2019-04-29] MEDS: CYANOCOBALAMIN 500 MCG TABLET (VITAMIN B-12) PO SCH (08:40)
[2019-04-29] MEDS: PYRIDOXINE HCL 50 MG TAB PO SCH (08:40)
[2019-04-29] MEDS: MAGNESIUM OXIDE 400 MG TAB PO SCH (08:40)
[2019-04-29] MEDS: MULTIVITAMIN TAB PO SCH (08:40)
[2019-04-29] MEDS: NICOTINE 14 MG/24 HR PATCH TD SCH (08:41)
[2019-04-29] MEDS ORDERED: ZIPRASIDONE HCL 20 MG CAP PO STA (09:57)
[2019-04-29] MEDS: ZIPRASIDONE HCL 20 MG CAP PO SCH (17:16)
[2019-04-29] MEDS: cloNIDine HCL 0.1 MG TAB PO SCH (21:09)
[2019-04-30] MEDS: PYRIDOXINE HCL 50 MG TAB PO SCH (08:38)
[2019-04-30] MEDS: NICOTINE 14 MG/24 HR PATCH TD SCH (08:39)
[2019-04-30] MEDS: MAGNESIUM OXIDE 400 MG TAB PO SCH (08:39)
[2019-04-30] MEDS: CYANOCOBALAMIN 500 MCG TABLET (VITAMIN B-12) PO SCH (08:39)
[2019-04-30] MEDS: MULTIVITAMIN TAB PO SCH (08:39)
[2019-04-30] MEDS: ZIPRASIDONE HCL 20 MG CAP PO SCH ×2 (08:39→18:35)
--- NOTE | 2019-04-30 10:33 | Psychiatric Progress Note ---
Date of Service April 30, 2019 Impression / Recommendations Impression Patient remains uncooperative, refusing most groups. He briefly had a roommate, but was placed back in a private room after multiple episodes of going into other patient's rooms and staring at them, once wearing nothing but a towel. His usp bed was relinquished due to ongoing psychotic symptoms and unwillingness to engage in treatment, and although he has been accepted at the [facility] since 04/02/2019, we still do not have a bed date. He has been refusing antipsychotic medications and has not taken anything in the past 2 weeks, but 04/29 agreed to a trial of ziprasidone. The plan is for the patient to be transferred for long-term psychiatric hospitalization, given his inability to cooperate with treatment, given his inability to attend his own physical needs without the availability of the full spectrum of psychiatric services at the inpatient level of care, and ongoing psychosis with auditory hallucinations and paranoia. (1) Schizophrenia: the interview.02/25 - Continue home medication regimen - as refusing offerings of his antipsychotic, will likely require olanzapine IM (or alternative agent) over objection, given clear evidence of paranoia and delusional thought process - previously stabilized on this medication - Pt agreeable to taking all other medications, with exception of antipsychotic as mentioned above - Admitted to a locked inpatient behavioral health unit, on q15 minute safety checks - Encourage medication initiation/adjustments as indicated - Encourage participation in group and recreational therapies - Gather collateral information from outpatient providers and usp staff - Suggest family meeting to involve outpatient supports in safety planning - Reschedule appropriate aftercare appointments 02/26 -Patient indicates willingness to sign a release for the [facility] usp, will get collateral from their staff. -File for 303 involuntary commitment to be held tomorrow. -Recommend medications over objection, with an IM Zyprexa backup for refusal of oral medication. Involve outpatient treatment team to discuss ways to improve stability and compliance; consider long-acting injectable antipsychotic. -Order fasting labs for monitoring on an atypical antipsychotic once patient is more cooperative. 02/27 -The patient was retrained at his involuntary commitment hearing (303) this morning. -He has continuously and consistently refused psychiatric medications to date. However, today, when I explained that that a option that might become necessary in his case is medication over objection, and an intramuscular form, the patient said that he understood and that he would try medications that I prescribe. His initial preference would be olanzapine, but because olanzapine is not available in a long acting depot form, we would first like to try aripiprazole. He indicates that he is taken aripiprazole in the past and has been able to tolerate it, although he does not believe that it has been particularly helpful. -A trial dose of aripiprazole 15 mg by mouth, as a one-time dose, has been ordered and he assessed for efficacy. 02/28 -Appears to be tolerating initiation of Abilify so far. Remains delusional, paranoid. May consider further titration tomorrow -Aricept discontinued at patient's request on 02/27/2019. The medication has not been demonstrated to be efficacious for cognitive impairment associated with long-standing schizophrenia however we should be vigilant for slowing of mentation following discontinuation. 03/01 Patient fixated and irrational regarding access to clothing item as above today. Hospital environment becoming incorporated and delusions. Consider possibility that the aripiprazole is contributing to activation. We will increase to 20 mg tomorrow and also start Risperdal 1 mg p.o. twice daily as as needed. 03/02 - Continue with aripiprazole at 20mg daily, consider need for further titration - if tolerating and effective, eventual plan will be for conversion to Abilify Maintena - Pt has not yet utilized risperidone 03/03 - Increase aripiprazole to 25mg (equivalent to 30mg pill) and change to liquid formulation to decrease risk of cheeking/nonadherence, as patient does not believe he needs medication and had been noncompliant prior to hospitalization. - Fasting glucose and lipid profile ordered for tomorrow for monitoring on an atypical antipsychotic. - Private room due to psychosis, agitation, and inappropriate disrobing/sexual behavior. - Meeting with BCM and CRR staff when patient able to tolerate. 03/04 - Continue aripiprazole 25mg liquid (30mg pill equivalent) and continue to observe for improvement in thought process/content - consider conversion to Maintena if effective, versus trial of another agent if improvement remains limited - Fasting labs reviewed - all values WNL - Continue medically necessary private room - Request meeting with CRR staff, in order to obtain details about patient's proximity to baseline 03/05 -Patient refusing liquid aripiprazole, but agrees to take the pill: Ordered 30 mg daily. -Schedule meeting with his renal case manager, CRR and psych rehab staff. Consider involuntary outpatient commitment at the time of discharge. 03/06 -The patient has improved in that he is more reality based at this point. He continues to harbor fixed, systematized delusions, but is generally able to focus on reality based topics. -Although the patient tells me that he does not feel that aripiprazole has been effective, he is able to accept my opinion in the opinion of the staff that he has improved in response to aripiprazole. -The patient's main objection to aripiprazole oral solution is that he does not like the way it tastes, and within this context, he tells us that he is willing to accept Abilify Maintenaand requests that it be injected into his buttock. Abilify Maintena 300 mg IM ordered, and oral Abilify discontinued. We will resume oral Abilify if the patient subsequently changes his mind and refuses the injection. 03/07 resuming abilfiy oral given his refusal of FARAH form of abilify 03/08 is taking abilify po form but refusing abilify maintena form. advise close monitoring for potential of checking given pt's tendency to not want to take medications. 03/09 -The patient is flatly refusing to take aripiprazole in the form of Abilify Maintena. He is also been hesitant to take oral Abilify, but has been doing so. -The patient's lack of cooperation is thought possibly to be related to an un-expressed desire to not be discharged back to the community. He told me today that he left his meeting with his community providers after a few seconds because "just the side of them made me extremely anxious. My pulse elevated to 140." Later, he told me that he was still anxious about it and his pulse was "still around 130." The patient allowed me to take his pulse, and it was approximately 76. At that point he said, "did I say pulse? I meant systolic bl ood pressure." And when I pointed out that his systolic blood pressure of 130 is not considered to be a particular concern, he said "I mean diastolic." -Our hope had been that the patient would agree to accept a Depo form of medication. He was refusing Haldol Decanoate because of various side effects. Risperidone constant was ruled out as a first-line Depo medication because of the frequency of administration (the patient tends to get into power struggles over medications) and because he says that he is sensitive to "big needles." Invega would be an option, but currently the patient is being so uncooperative that our concern would be that he would cheek the oral tablets that we would have to give him first. Accordingly, the new strategy will be to discontinue Abilify, and resume olanzapine with olanzapine IM over objection if necessary. We will begin the olanzapine Zydis 20 mg at bedtime 03/10 -The patient took the prescribed dose of olanzapine Zydis 20 mg at bedtime last night. Today, he tells me that it "did not help at all." However, staff report that he has been somewhat more agreeable, more pleasant, and less paranoid today. -As he has with other providers, today he told me that I should have given him olanzapine 5 mg "to start", and I explained that he was already on olanzapine 20 mg when he came into the hospital and we know that he is able to tolerate that dose. He tells me that he did, in fact tolerate the dose and is not aware of any side effects, but, somewhat illogically, insisted that the dose was "too high for a starting dose." 03/11 - Continue current medication regimen at this time - olanzapine 20mg daily - Encourage participation in the milieu and in group programming as tolerated 03/12 -Continue current medication regimen. The patient's condition has not yet improved. -The patient does participate in select groups, but often tends to be disruptive. 03/13 -Today, the patient seems to be somewhat more cooperative and less frankly delusional. It was possible to engage in a mostly reality based conversation for 5 or 10 minutes at a time. Also, although he was unhappy with me when I refused to provide him with a dose of Valium for anxiety, he was able to remain pleasant and calm at this time, did not storm from the room." 03/14 and 03/15 -no change in medication will work on therapeutic alliance given patient is not participating 03/16 -304 involuntary commitment granted. -Patient remains completely uncooperative with treatment, refused his Zyprexa Zydis last evening, but then ultimately took it before he received the injection. I have a high suspicion for cheeking of antipsychotic medication, and we will continue to be vigilant with mouth checks, and work towards a long- acting injectable. 03/17 -Patient has been on Zyprexa 20 mg at bedtime for 1 week, with limited response. He is refusing to discuss other medication options. Per records, he has been prescribed up to 30 mg olanzapine in the past, so will increase his dose to this previously tolerated dose, as it is 1 of the few medications he has been willing to take. Continue IM backup for refusal, and Zyprexa Zydis formulation to decrease risk of cheeking. He is not compliant with mouth checks, but have asked staff to try to observe him for 10 minutes after taking the Zydis to ensure he is not spitting it out before it dissolves. 03/18 -Continue Zyprexa Zydis 30 mg at bedtime with IM backup. Consider switch to a different medication (?oral paliperidone with IM backup) if irritability and agitation continues. He has tried virtually every atypical antipsychotic and reports none of them were effective (although some trials were short due to nonadherence) and has a history of dystonia on haloperidol. Clozapine would be a reasonable choice, but he has been unwilling to even discuss medication options. -Consider some component of cognitive decline which could be contributing to his worsening presentation and will need to be monitored and worked up further once he is more psychiatrically stable. -Refer to [facility] in the event that he does not improve and long-term inpatient treatment is needed. 03/19 - Proceed with [facility] referral. 03/20 - Continue current medication regimen; patient refused EKG and CXR yesterday - refused again today - Continue attempts to gather information to make a referral to [facility] 03/23 - Proceed with [facility] referral - patient has refused EKG and CXR for multiple attempts. We will send most recent tests available - Continue current medication regimen at this time 03/24 -Attempted to hold diversion meeting with his outpatient BCM, usp director, and the [facility]; patient refused to attend or participate in the meeting. 03/25 - 03/26 - Continue treatment plan as above - no change in patient's condition and he remains unwilling to participate meaningfully in treatment - Continue with [facility] referral 03/27 -The patient has been informed that the plan at this point is to transfer him to [facility] for long-term inpatient psychiatric treatment, given his refusal to adhere with treatment and his associated behaviors in the community when not adherent with psychiatric treatment. -The patient continues to refuse mouth checks after given dosages of Zyprexa Zydis, and there is some question regarding whether he is actually ingesting this medication. He also would not cooperate with laboratory testing. -There has been a question regarding the patient's cognitive functions, and prior to admission he had been taking Aricept. When he does cooperate with this, I have not seen evidence of any substantial cognitive impairment. He may have mild cognitive impairment, but does not fully cooperate with formal cognitive assessment. He easily recalls the names of his providers, the names of the medications he is taking, the names of the various infectious agents that he believes are causing some of his psychiatric symptoms, the names of certain chemicals that he believes will rid him of the reference to infections, and is able to discuss current events such as recent news items. His assertion that he wants to return to his apartment in the community seems belied by his steadfast refusal to cooperate with those interventions I would make it possible for him to return, and there is some suspicion that although the patient remains floridly psychotic he may also be intentionally sabotaging discharge. 03/28 - 03/30 -There is been no change director the past 2 weeks, and long-term inpatient treatment at the [facility] is indicated. 03/31 - Continue current medication regimen - Pt briefly verbalized willingness for FARAH, but was not agreeable to medication adjustments to allow for this to be possible - If he should change his mind; recommendation is for trial of Invega orally to establish tolerability, then consideration for Invega Sustenna - unwilling for this today 04/01 - 04/03 - Continue current medication regimen - Continues to refuse FARAH, will continue discussion daily as this is the reported preference of his CRR 04/04 -Questionable positive PPD measuring 13 mm but history of confinement places him at higher risk. Patient refused chest x-ray today but we will reapproach. No active symptoms of infection. Order for sputum culture and smear today for confirmation. 04/05 -PPD now appears negative. Would suggest follow through with sputum smear and culture for confirmation as previously ordered -Continue treatment plan as above 04/06 - PPD reportedly negative, patient unable to follow-up with sputum smear - therefore discontinued - Continue medication regimen as above - unwilling to discuss conversion to an FARAH - Meeting today with representation from [facility] to discuss discharge planning 04/07 - Continue medication regimen as above - remains unwilling to discuss changes - Additional meeting with CRR and CM scheduled for next week - We have been regularly assessing patient's condition and appropriateness to go outside since his 30-day treatment plan review. As patient continues to be unwilling to participate in a meaningful conversation with providers regarding his condition, we continue to be unable to determine if he is appropriate to be taken off the unit - therefore will await ability to discuss the topic in a meaningful way prior to making this determination. Will continue regular evaluation. 04/08 - 04/12 - Continue current medication regimen, as patient unwilling to discuss changes - Attempted again to determine if appropriate to go outside, patient unwilling to participate in conversation despite being told the goal of allowing him to go outside - Meeting with CM and CRR director scheduled for 04/13 at 1030 04/13 - Continue Zyprexa 30mg daily - unwilling to engage in conversation to discuss changes - Remains unwilling to engage in conversation to determine if he is appropriate to go outside, he has been made aware this is a possibility for him - Meeting for attempted diversion resulted in decision to no longer hold patient's CRR bed, [facility] admission is supported based on little to no improvement since admission and limited willingness to engage in conversations regarding medication adjustments - We have been asked to attempt to get a QuantiFERON-TB Gold Plus test, despite negative PPD reading within acceptable timeframe - pt unwilling to engage in conversation to obtain consent, further indicating why long-term inpatient psychiatric hospitalization is necessary. Will continue to attempt to gain consent for this testing to be completed 04/15 -The patient is slightly more communicative today and that he does answer at least one question which was whether he would be in agreement if we offered him a drug holiday from olanzapine. His response was in the affirmative.. He also said "thank you." -The patient continues to appear suspicious and he clearly is angry at and unwilling to cooperate with staff. He is particularly bumptious with individuals who he sees as not fully trained and fully qualified. -The plan remains transfer to the [facility] for long-term psychiatric care. Our hope remains that we will be able to divert the patient from the [facility], but the patient, as noted above, remains uncommunicative and resistant. Perhaps contributing to the patient's obvious anger and distress is the fact that he has learned this week that his residential program is unwilling to allow him to return and has stopped holding his bed for other individuals. 04/16 - Continue current treatment plan, which includes holiday from olanzapine as a rapport building attempt, and due to concerns that he is more irritable and resistant to treatment - which is obviously not beneficial for his overall cond ition. - Attempted to communicate with the patient today via written/printed text - will add addendum to this note if patient was willing to complete the sheet and respond to questions 04/21 -Patient remains uncooperative and unwilling to participate in interviews, but has been out of his room more and attending some groups. He remains unwilling to discuss treatment options, including antipsychotic medication. 04/22 - Patient remains unwilling for medications, but is interacting with peers appropriately and attending groups. Will try discontinuing private room and placing him with a roommate, is perhaps increased socialization will be therapeutic for him. 04/23 -no change, patient still unwilling for medications(other than marijuana and benzos) 04/24 -The patient remains angry, suspicious, and largely uncommunicative. He spoke briefly with the attending psychiatrist today in order to request privileges to go outdoors with staff, and was able to cooperate with a fresh air break, but subsequently was angry, bumptious, and willing to cooperate with assessments. 04/25 - valium 5mg dose yesterday appeared to lead to some disinhibited verbally agitated behavior, with the valium dose being discontinued following that one dose. Pt is fixated on valium and on temazepam. refusal to take other medications with. Handling a roommate decently currently. Pt refusing to attend groups. Limited engagement with peers and staff occurring. no change to plan today 04/26 no change to plan today 04/27 -The patient cooperated with an interview today after several weeks of flatly refusing, sometimes rudely refusing to speak to providers. Today, the patient not voiced any delusional material and was able to specifically answer questions regarding perceptual disturbances. 04/28 -no change. 04/29 -start ziprasidone 20 mg twice daily with meals. Reviewed risks, benefits and common side effects including sedation and the need to take with food. 04/30 maintained ziprasidone at current dose today given pt's tendency to refuse medications mikey if notice any s/e, considering raising dose tomorrow (2) Substance abuse: 02/25 - Pt has reported history of substance abuse, and recommendation has consistently been for avoidance of substances with significant abuse potential. - PDMP queried - most recent prescriptions below - lorazepam 0.5mg #60 tabs for 30 day supply - Dr. Alves - filled 02/12/2019 - alprazolam 0.5mg #90 tabs for 30 day supply - Dr. Lopez - filled 01/16/2019 - temazepam 30mg #30 caps for 30 day supply - Dr. Lopez - filled 01/16/2019 - Will continue lorazepam 0.5mg BID prn on admission, as only medication that is seemingly active - toxicology screen is negative for benzodiazepines, which questions if he has been taking the medication appropriately - Ideally will taper and discontinue the lorazepam, as recommendation remains that substances with abuse potential be avoided 02/26 -The patient's outpatient providers, during a meeting this morning, report that the patient tends to successfully convince physicians to prescribe benzodiazepines for him and that, in the past, he has abused him to the degree that he is practically obtunded. 02/27 -A repeat check of the PDMP reveals that the patient is consistently being prescribed lorazepam 0.5 mg twice daily (number 60/month) by a Dr. Brent Alves. He is also being prescribed alprazolam 0.[address] mg [address] Jeff Lopez, with the most recent previous prescription of alprazolam being on 01/16/[address] Lopez also prescribed temazepam 30 mg capsules #30 on 01/16/2019. According to his residential providers, no temazepam capsules were found among the patient's belongings. His most recent prescription for lorazepam 0.5 mg tablets was filled on 02/12/2019. 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 In the past, he reportedly has used clonazepam and temazepam. -I advised the patient that because of his history of misuse of benzodiazepines we would not be prescribing benzodiazepines during his hospital stay. An as needed order for lorazepam has not been used during hospital stay, and I discontinued the order today. 03/02 - Will need to coordinate care with his PCP and outpatient psychiatrist prior to discharge regarding the above. 03/04 - Charge nurse spoke with the above offices regarding concern for continued benzodiazepine prescriptions - Records will be faxed to their offices on discharge, as all benzodiazepines were discontinued during this hospitalization 03/06 -The patient did not request benzodiazepines and did not complain of anxiety today. I suggested to him that perhaps Abilify is also helping with anxiety in his case, and he responded by saying "perhaps." 03/09 -Today, the patient is insisting that what he needs is "benzodiazepines," and explains that the reason he "needs" benzodiazepines is that he has "benzodiazepine receptors," and that he is the only medications that work. He is unable to process warnings about the risks of benzodiazepines in the elderly, including increased risk of falls and mortality. Clearly, the patient is seeking benzodiazepines and has no insight into the associated risks. He also insists that he has never had trouble with benzodiazepines in the past, although there is well-documented of this. 03/10 -Today, the patient repeated his insistence that he needs benzodiazepines and that benzodiazepines are the only medications that work because he has "benzodiazepine receptors." After being told that everyone has central nervous system receptors to which benzodiazepines may attach, he replied, "That may be, but some of people need to have benzodiazepines forearm benzodiazepine receptors. 03/12 -Continues to request Benzodiazepines. 03/13 -Requests Valium for his "benzodiazepines receptors." 03/27 -Refuses to cooperate with assessment today, but has recently told staff that he needs "either Valium or Ativan." -The patient apparently has no working insight into his history of abuse of prescription medications (benzodiazepines). 04/15 -The patient has not reference to request for benzodiazepines recently. However, the context is that he has not communicated much of anything directly, a other than the occasional need for self-care items. 04/24 -Today, the patient repeats his request for benzodiazepines, and insists that he is "supposed" to be taking diazepam 10 mg 3 times a day and temazepam for sleep every night. 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 Unfortunately, the exact opposite seems to have occurred. Not only was the patient was uncooperative subsequent to a dose of Valium, he seems to have been disinhibited by it and shouting "get out" or "get away" several times when approached by staff 04/25 - pt focused on seeking temazepam, or Valium 04/27 -The patient does have a history of substance dependence. However, the current plan and expected disposition is for the patient to be transferred to an extended care inpatient psychiatric unit where abuse of prescribed medications is unlikely to occur. Today, the patient calmly requests temazepam and says that he has tried a number of different sleeping pills, but "that is the one that works." The patient is also able to clearly say that he understands that temazepam is physically habituating that there are associated risks associated with temazepam including, but not limited to, a risk of falls, accidents, confusion, and depression. He tells us that at prescribed dosages he has not had any of these problems in the past. -Today, I agreed to a trial of temazepam 15 mg at bedtime, a dose that the patient says has been effective in the past. 04/30 close monitoring of temazepam given above, so far not taken (3) Hypertension: 02/25 - Continue home dose of clonidine 0.1mg qHS 03/01 Watch mildly elevated blood pressures as patient has been refusing clonidine 03/03 - BP normal past two days, and low today 03/10 -The patient's blood pressure today was 136/73. His pulse was 71 03/14 - elevated BP it is not urgent but will need monitored. 03/15 - BP WNL 03/26 - BP continues to be WNL 04/02 - BP remains within normal limits; continue daily vitals per standard admission order set - Will consider acute phase of this problem resolved at this time Risk Factors Assessment Male: Yes : Yes Do You Have Access To A Gun?: No Health Problems: Yes Mental Health Diagnoses: Yes Substance Use Disorders: Yes Protective Factors Assessment Yarsani Beliefs: No : No Responsible for Young Children: No Employed: No Stable Relationships: No Supportive Family: No Good Rapport with Provider: No Absence of Any Risk Factors Above: No Interval History Identifying Information SCOTT ROBERTO is a 73-year-old M who currently lives at a [facility] in [place], has a history of schizophrenia, and is known to our unit from several previous admissions, most recently in 09/2016. He was admitted on 02/24/19 16:40 on a 302 involuntary commitment for exacerbation of schizophrenia and heightened paranoia resulting in belief he needed to hide in a dumpster to seek refuge from impending bombings. He was found by [facility] staff and brought to the ED by police, and is on a 304 involuntary commitment as of 03/16/19. 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 Chief Complaint "don't sleep well". Review of Systems Sleep Information Total Hours of Sleep: 7.75 Sleep Comments: pt on q-15 minute checks Meal Information Percent Meal Consumed - Breakfast: 75 Percent Meal Consumed - Lunch: 75 Percent Meal Consumed - Dinner: 100 Nutrition Comment: per meal record Subjective Subjective Patient was seen & assessed and interval progress reviewed with treatment team. Pt continues to report that does not sleep well, that takers a long time to fall asleep. He is still focused on Valium as a muscle relaxer and temazepam as a sleep aid. He denies anxiety or paranoid thinking or hallucinations. He continues to express willingness to take ziprasidone and denied any s/e from it to date with also not noticing anything from the medication as of yet. He shared how he had a hard childhood that lead him to be quiet and reserved and that Valium helps loosen him up. He reports his muscles are not significantly tense currently. He denied any other concerns. While pt has had temazepam ordered on a prn basis for past 3 nights he has not yet taken it. Nurses indicated that he refused it when offered so far Physical Exam Psychiatric Orientation: alert, oriented x 3, oriented to person, oriented to place, cooperative and + guarded Apperance: appropriately dressed (Wearing the same clothes since admission), appropriately groomed and appeared stated age Eye Contact: good eye contact Motor Behavior: steady gait and station and no abnormal motor movements Speech: normal rate/rhythm/volume of speech; no pressured speech limited spontaneous speech but does responds to questions Affect: + blunted affect (With an irritable edge) Mood: no depressed mood, no anxious mood, no irritable mood ("I'm ok") and no angry mood Thought Process: goal directed thought process, + perseveration (On violations of his rights) and + concrete thought process Thought Content: + preoccupation, reality based without delusions (No delusional material was elicited during the interview. The patient does remain guarded and tends not to elaborate a great deal) and + persecution Suicidal Thoughts: denies suicidal thoughts and denies suicidal intent Homicidal Thoughts: denies homicidal thoughts Hallucinations: no auditory hallucinations (Although reported auditory hallucinations of voices and ringing in his ears to staff), no visual hallucinations, no tactile hallucinations and no gustatory hallucinations Cognition: remote memory grossly intact, attention grossly intact and language grossly intact; + recent memory not intact Estimated Intelligence: consistent with education level and + above average estimated intelligence Insight: + severely impaired insight Judgement: + impaired judgement Vital Signs (Past 24 Hours) Last Vital Signs Temp 36.8 C 04/30/19 06:51 Pulse 76 04/30/19 06:52 Resp 18 04/30/19 06:51 BP 137/77 04/30/19 06:52 Pulse Ox 96 02/24/19 08:10 Results & Data Current Inpatient Medications Current Inpatient Medications: Current Inpatient Medications Acetaminophen (Tylenol) 650 mg PO Q4H PRN PRN Reason: Headache or Minor Fever Stop: 05/23/19 08:14 Al Hydrox/Mg Hydrox/Simethicone (Maalox) 30 ml PO Q4H PRN PRN Reason: GI Upset Stop: 05/23/19 08:14 Benztropine Mesylate (Cogentin) 0.5 mg PO BID PRN PRN Reason: dystonia Stop: 05/23/19 08:14 Bismuth Subsalicylate (Kaopectate) 15 ml PO PRN PRN PRN Reason: Loose Stool Stop: 05/23/19 08:14 Clonidine HCl (Catapres) 0.1 mg PO HS MAG Stop: 05/23/19 21:59 Last Admin: 04/29/19 21:09 Dose: Not Given Documented by: Cyanocobalamin (Vitamin B-12) 500 mcg PO DAILY MAG Stop: 05/23/19 08:59 Last Admin: 04/30/19 08:39 Dose: 500 mcg Documented by: Hydroxyzine HCl (Vistaril) 25 mg PO Q4H PRN PRN Reason: Anxiety Stop: 05/23/19 08:14 Hydroxyzine HCl (Vistaril) 50 mg PO HSZ PRN PRN Reason: Insomnia Stop: 05/23/19 08:14 Magnesium Hydroxide (Milk Of Magnesia) 30 ml PO DAILY PRN PRN Reason: Heartburn Stop: 05/23/19 08:19 Magnesium Oxide (Mag-Ox) 400 mg PO DAILY MAG Stop: 05/23/19 08:59 Last Admin: 04/30/19 08:39 Dose: 400 mg Documented by: Miscellaneous (Remove Nicoderm Patch) 1 ea N/A HS MAG Stop: 05/23/19 21:59 Last Admin: 04/29/19 21:09 Dose: Not Given Documented by: Multivitamins (Multivitamin Tab) 1 tab PO DAILY MAG Stop: 05/23/19 08:59 Last Admin: 04/30/19 08:39 Dose: 1 tab Documented by: Nicotine (Nicoderm Cq) 14 mg TD QAM MAG Stop: 05/23/19 08:59 Last Admin: 04/30/19 08:39 Dose: 14 mg Documented by: Olanzapine (Zyprexa) 10 mg IM HS PRN PRN Reason: Undecided Stop: 05/23/19 08:19 Pyridoxine HCl (Vitamin B-6) 100 mg PO DAILY MAG Stop: 05/23/19 08:59 Last Admin: 04/30/19 08:38 Dose: 100 mg Documented by: Sodium Chloride ([place] Nasal) 1 - 2 sprays NA PRN PRN PRN Reason: Nasal Dryness/Congestion Stop: 05/23/19 08:19 Temazepam (Restoril) 15 mg PO HSZ PRN PRN Reason: Insomnia Stop: 05/28/19 12:28 Ziprasidone (Geodon) 20 mg PO BIDM MAG Stop: 05/29/19 17:44 Last Admin: 04/30/19 08:39 Dose: 20 mg Documented by: Mental Health & Subst Abuse Tx Therapist Name of Therapist: Sammy Legal Stenographer Name of Legal Stenographer: Shruti Lopez Phone Number for Legal Stenographer: Case Management Appointment Comment: [phone], [place] [address] Post Discharge Appointments Primary Care Physician Name Of Family Doctor: Dr. Lopez Contact Information Discharge Discharge Address: [address] [place] [address] CPT Code CPT Code 99824 (1) Schizophrenia Schizophrenia type: paranoid schizophrenia Qualified Code(s): F20.0 - Paranoid schizophrenia (2) Hypertension Hypertension type: essential hypertension Qualified Code(s): I10 - Essential (primary) hypertension
[2019-04-30] MEDS: cloNIDine HCL 0.1 MG TAB PO SCH (21:12)
[2019-05-01] MEDS: ZIPRASIDONE HCL 20 MG CAP PO SCH ×2 (08:56→17:36)
[2019-05-01] MEDS: MAGNESIUM OXIDE 400 MG TAB PO SCH (08:56)
[2019-05-01] MEDS: MULTIVITAMIN TAB PO SCH (08:57)
[2019-05-01] MEDS: PYRIDOXINE HCL 50 MG TAB PO SCH (08:57)
[2019-05-01] MEDS: CYANOCOBALAMIN 500 MCG TABLET (VITAMIN B-12) PO SCH (08:57)
[2019-05-01] MEDS: NICOTINE 14 MG/24 HR PATCH TD SCH (08:59)
--- NOTE | 2019-05-01 19:14 | Psychiatric Progress Note ---
Date of Service May 01, 2019 Impression / Recommendations Impression Patient remains uncooperative, refusing most groups. He briefly had a roommate, but was placed back in a private room after multiple episodes of going into other patient's rooms and staring at them, once wearing nothing but a towel. His detention bed was relinquished due to ongoing psychotic symptoms and unwillingness to engage in treatment, and although he has been accepted at the [facility] since 04/02/2019, we still do not have a bed date. He has been refusing antipsychotic medications and has not taken anything in the past 2 weeks, but 04/29 agreed to a trial of ziprasidone. The plan is for the patient to be transferred for long-term psychiatric hospitalization, given his inability to cooperate with treatment, given his inability to attend his own physical needs without the availability of the full spectrum of psychiatric services at the inpatient level of care, and ongoing psychosis with auditory hallucinations and paranoia. We have attempted a number of strategies to help the patient. Most recently, our efforts have gone primarily towards getting the patient to be more cooperative and trusting. After a period of time during which he was more cooperative and, in fact, agreed to take the medication Geodon, today he is sullen, angry, and openly hostile. Many of his behaviors are decidedly self- defeating, but he has no insight into the degree to which his unwillingness to cooperate is adversely affecting what he has repeatedly said are his goals. The patient does not say enough to allow us to specifically site delusional material, but the degree of his irrational and seemingly without purpose behaviors are of psychotic proportions. An example is that he has repeatedly insisted that he must have temazepam in order to sleep. We decided as part of an effort to avoid power struggles with the patient and, also, because the firm plan now is for the patient to be transferred to a long-term psychiatric hospital without diversion, I agreed to prescribe temazepam for sleep last week and the patient was made aware that it was ordered. He recalled that it had been ordered the next day, but has consistently not ask for it or any other hypnotic at bedtime since it was ordered. When asked to explain this, he becomes enraged, and our assumption is that he has incorporated a number of us into his paranoid delusional system and will only trust medications that are ord ered by certain providers. (1) Schizophrenia: the interview.02/25 - Continue home medication regimen - as refusing offerings of his antipsychotic, will likely require olanzapine IM (or alternative agent) over objection, given clear evidence of paranoia and delusional thought process - previously stabilized on this medication - Pt agreeable to taking all other medications, with exception of antipsychotic as mentioned above - Admitted to a locked inpatient behavioral health unit, on q15 minute safety checks - Encourage medication initiation/adjustments as indicated - Encourage participation in group and recreational therapies - Gather collateral information from outpatient providers and detention staff - Suggest family meeting to involve outpatient supports in safety planning - Reschedule appropriate aftercare appointments 02/26 -Patient indicates willingness to sign a release for the [facility] detention, will get collateral from their staff. -File for 303 involuntary commitment to be held tomorrow. -Recommend medications over objection, with an IM Zyprexa backup for refusal of oral medication. Involve outpatient treatment team to discuss ways to improve stability and compliance; consider long-acting injectable antipsychotic. -Order fasting labs for monitoring on an atypical antipsychotic once patient is more cooperative. 02/27 -The patient was retrained at his involuntary commitment hearing (303) this morning. -He has continuously and consistently refused psychiatric medications to date. However, today, when I explained that that a option that might become necessary in his case is medication over objection, and an intramuscular form, the patient said that he understood and that he would try medications that I prescribe. His initial preference would be olanzapine, but because olanzapine is not available in a long acting depot form, we would first like to try aripiprazole. He indicates that he is taken aripiprazole in the past and has been able to tolerate it, although he does not believe that it has been particularly helpful. -A trial dose of aripiprazole 15 mg by mouth, as a one-time dose, has been ordered and he assessed for efficacy. 02/28 -Appears to be tolerating initiation of Abilify so far. Remains delusional, paranoid. May consider further titration tomorrow -Aricept discontinued at patient's request on 02/27/2019. The medication has not been demonstrated to be efficacious for cognitive impairment associated with long-standing schizophrenia however we should be vigilant for slowing of men tation following discontinuation. 03/01 Patient fixated and irrational regarding access to clothing item as above today. Hospital environment becoming incorporated and delusions. Consider possibility that the aripiprazole is contributing to activation. We will increase to 20 mg tomorrow and also start Risperdal 1 mg p.o. twice daily as as needed. 03/02 - Continue with aripiprazole at 20mg daily, consider need for further titration - if tolerating and effective, eventual plan will be for conversion to Abilify Maintena - Pt has not yet utilized risperidone 03/03 - Increase aripiprazole to 25mg (equivalent to 30mg pill) and change to liquid formulation to decrease risk of cheeking/nonadherence, as patient does not believe he needs medication and had been noncompliant prior to hospitali zation. - Fasting glucose and lipid profile ordered for tomorrow for monitoring on an atypical antipsychotic. - Private room due to psychosis, agitation, and inappropriate disrobing/sexual behavior. - Meeting with [facility] and [facility] staff when patient able to tolerate. 03/04 - Continue aripiprazole 25mg liquid (30mg pill equivalent) and continue to observe for improvement in thought process/content - consider conversion to Maintena if effective, versus trial of another agent if improvement remains limited - Fasting labs reviewed - all values WNL - Continue medically necessary private room - Request meeting with [facility] staff, in order to obtain details about patient's proximity to baseline 03/05 -Patient refusing liquid aripiprazole, but agrees to take the pill: Ordered 30 mg daily. -Schedule meeting with his case liner, CRR and psych rehab staff. Consider involuntary outpatient commitment at the time of discharge. 03/06 -The patient has improved in that he is more reality based at this point. He continues to harbor fixed, systematized delusions, but is generally able to focus on reality based topics. -Although the patient tells me that he does not feel that aripiprazole has be en effective, he is able to accept my opinion in the opinion of the staff that he has improved in response to aripiprazole. -The patient's main objection to aripiprazole oral solution is that he does not like the way it tastes, and within this context, he tells us that he is willing to accept Abilify Maintenaand requests that it be injected into his buttock. Abilify Maintena 300 mg IM ordered, and oral Abilify discontinued. We will resume oral Abilify if the patient subsequently changes his mind and refuses the injection. 03/07 resuming abilfiy oral given his refusal of FARAH form of abilify 03/08 is taking abilify po form but refusing abilify maintena form. advise close monitoring for potential of checking given pt's tendency to not want to take medications. 03/09 -The patient is flatly refusing to take aripiprazole in the form of Abilify Maintena. He is also been hesitant to take oral Abilify, but has been doing so. -The patient's lack of cooperation is thought possibly to be related to an un-expressed desire to not be discharged back to the community. He told me today that he left his meeting with his community providers after a few seconds because "just the side of them made me extremely anxious. My pulse elevated to 140." Later, he told me that he was still anxious about it and his pulse was "still around 130." The patient allowed me to take his pulse, and it was approximately 76. At that point he said, "did I say pulse? I meant systolic blood pressure." And when I pointed out that his systolic blood pressure of 130 is not considered to be a particular concern, he said "I mean diastolic." -Our hope had been that the patient would agree to accept a Depo form of medication. He was refusing Haldol Decanoate because of various side effects. Risperidone constant was ruled out as a first-line Depo medication because of the frequency of administration (the patient tends to get into power struggles over medications) and because he says that he is sensitive to "big needles." Invega would be an option, but currently the patient is being so uncooperative that our concern would be that he would cheek the oral tablets that we would have to give him first. Accordingly, the new strategy will be to discontinue Abilify, and resume olanzapine with olanzapine IM over objection if necessary. We will begin the olanzapine Zydis 20 mg at bedtime 03/10 -The patient took the prescribed dose of olanzapine Zydis 20 mg at bedtime last night. Today, he tells me that it "did not help at all." However, staff report that he has been somewhat more agreeable, more pleasant, and less paranoid today. -As he has with other providers, today he told me that I should have given him olanzapine 5 mg "to start", and I explained that he was already on olanzapin e 20 mg when he came into the hospital and we know that he is able to tolerate that dose. He tells me that he did, in fact tolerate the dose and is not aware of any side effects, but, somewhat illogically, insisted that the dose was "too high for a starting dose." 03/11 - Continue current medication regimen at this time - olanzapine 20mg daily - Encourage participation in the milieu and in group programming as tolerated 03/12 -Continue current medication regimen. The patient's condition has not yet improved. -The patient does participate in select groups, but often tends to be disruptive. 03/13 -Today, the patient seems to be somewhat more cooperative and less frankly delusional. It was possible to engage in a mostly reality based conversation for 5 or 10 minutes at a time. Also, although he was unhappy with me when I refused to provide him with a dose of Valium for anxiety, he was able to remain pleasant and calm at this time, did not storm from the room." 03/14 and 03/15 -no change in medication will work on therapeutic alliance given patient is not participating 03/16 -304 involuntary commitment granted. -Patient remains completely uncooperative with treatment, refused his Zyprexa Zydis last evening, but then ultimately took it before he received the injection. I have a high suspicion for cheeking of antipsychotic medication, and we will continue to be vigilant with mouth checks, and work towards a long- acting injectable. 03/17 -Patient has been on Zyprexa 20 mg at bedtime for 1 week, with limited response. He is refusing to discuss other medication options. Per records, he has been prescribed up to 30 mg olanzapine in the past, so will increase his dose to this previously tolerated dose, as it is 1 of the few medications he has been willing to take. Continue IM backup for refusal, and Zyprexa Zydis formulation to decrease risk of cheeking. He is not compliant with mouth checks, but have asked staff to try to observe him for 10 minutes after taking the Zydis to ensure he is not spitting it out before it dissolves. 03/18 -Continue Zyprexa Zydis 30 mg at bedtime with IM backup. Consider switch to a different medication (?oral paliperidone with IM backup) if irritability and agitation continues. He has tried virtually every atypical antipsychotic and reports none of them were effective (although some trials were short due to nonadherence) and has a history of dystonia on haloperidol. Clozapine would be a reasonable choice, but he has been unwilling to even discuss medication options. -Consider some component of cognitive decline which could be contributing to his worsening presentation and will need to be monitored and worked up further once he is more psychiatrically stable. -Refer to [facility] in the event that he does not improve and long-term inpatient treatment is needed. 03/19 - Proceed with [facility] referral. 03/20 - Continue current medication regimen; patient refused EKG and CXR yesterday - refused again today - Continue attempts to gather information to make a referral to [facility] 03/23 - Proceed with [facility] referral - patient has refused EKG and CXR for multiple attempts. We will send most recent tests available - Continue current medication regimen at this time 03/24 -Attempted to hold diversion meeting with his outpatient [facility], detention director, and the [facility] MH/ID; patient refused to attend or participate in the meeting. 03/25 - 03/26 - Continue treatment plan as above - no change in patient's condition and he remains unwilling to participate meaningfully in treatment - Continue with [facility] referral 03/27 -The patient has been informed that the plan at this point is to transfer him to [facility] for long-term inpatient psychiatric treatment, given his refusal to adhere with treatment and his associated behaviors in the community when not adherent with psychiatric treatment. -The patient continues to refuse mouth checks after given dosages of Zyprexa Zydis, and there is some question regarding whether he is actually ingesting this medication. He also would not cooperate with laboratory testing. -There has been a question regarding the patient's cognitive functions, and prior to admission he had been taking Aricept. When he does cooperate with this, I have not seen evidence of any substantial cognitive impairment. He may have mild cognitive impairment, but does not fully cooperate with formal cognitive assessment. He easily recalls the names of his providers, the names of the medications he is taking, the names of the various infectious agents that he believes are causing some of his psychiatric symptoms, the names of certain chemicals that he believes will rid him of the reference to infections, and is able to discuss current events such as recent news items. His assertion that he wants to return to his apartment in the community seems belied by his steadfast refusal to cooperate with those interventions I would make it possible for him to return, and there is some suspicion that although the patient remains floridly psychotic he may also be intentionally sabotaging discharge. 03/28 - 03/30 -There is been no plant changer the past 2 weeks, and long-term inpatient treatment at the [facility] is indicated. 03/31 - Continue current medication regimen - Pt briefly verbalized willingness for FARAH, but was not agreeable to medication adjustments to allow for this to be possible - If he should change his mind; recommendation is for trial of Invega orally to establish tolerability, then consideration for Invega Sustenna - unwilling for this today 04/01 - 04/03 - Continue current medication regimen - Continues to refuse FARAH, will continue discussion daily as this is the reported preference of his CRR 04/04 -Questionable positive PPD measuring 13 mm but history of confinement places him at higher risk. Patient refused chest x-ray today but we will reapproach. No active symptoms of infection. Order for sputum culture and smear today for confirmation. 04/05 -PPD now appears negative. Would suggest follow through with sputum smear and culture for confirmation as previously ordered -Continue treatment plan as above 04/06 - PPD reportedly negative, patient unable to follow-up with sputum smear - therefore discontinued - Continue medication regimen as above - unwilling to discuss conversion to an FARAH - Meeting today with representation from [facility] to discuss discharge planning 04/07 - Continue medication regimen as above - remains unwilling to discuss changes - Additional meeting with CRR and CM scheduled for next week - We have been regularly assessing patient's condition and appropriateness to go outside since his 30-day treatment plan review. As patient continues to be unwilling to participate in a meaningful conversation with providers regarding his condition, we continue to be unable to determine if he is appropriate to be taken off the unit - therefore will await ability to discuss the topic in a meaningful way prior to making this determination. Will continue regular evaluation. 04/08 - 04/12 - Continue current medication regimen, as patient unwilling to discuss changes - Attempted again to determine if appropriate to go outside, patient unwilling to participate in conversation despite being told the goal of allowing him to go outside - Meeting with CM and CRR director scheduled for 04/13 at 1030 04/13 - Continue Zyprexa 30mg daily - unwilling to engage in conversation to discuss changes - Remains unwilling to engage in conversation to determine if he is appropriate to go outside, he has been made aware this is a possibility for him - Meeting for attempted diversion resulted in decision to no longer hold patient's CR[facility] bed, [facility] admission is supported based on little to no improvement since admission and limited willingness to engage in conversations regarding medication adjustments - We have been asked to attempt to get a QuantiFERON-TB Gold Plus test, despite negative PPD reading within acceptable timeframe - pt unwilling to engage in conversation to obtain consent, further indicating why long-term inpatient psychiatric hospitalization is necessary. Will continue to attempt to gain consent for this testing to be completed 04/15 -The patient is slightly more communicative today and that he does answer at least one question which was whether he would be in agreement if we offered him a drug holiday from olanzapine. His response was in the affirmative.. He also said "thank you." -The patient continues to appear suspicious and he clearly is angry at and unwilling to cooperate with staff. He is particularly bumptious with individuals who he sees as not fully trained and fully qualified. -The plan remains transfer to the [facility] for long-term psychiatric care. Our hope remains that we will be able to divert the patient from the [facility], but the patient, as noted above, remains uncommunicative and resistant. Perhaps contributing to the patient's obvious anger and distress is the fact that he has learned this week that his residential program is unwilling to allow him to return and has stopped holding his bed for other individuals. 04/16 - Continue current treatment plan, which includes holiday from olanzapine as a rapport building attempt, and due to concerns that he is more irritable and resistant to treatment - which is obviously not beneficial for his overall condition. - Attempted to communicate with the patient today via written/printed text - will add addendum to this note if patient was willing to complete the sheet and respond to questions 04/21 -Patient remains uncooperative and unwilling to participate in interviews, but has been out of his room more and attending some groups. He remains unwilling to discuss treatment options, including antipsychotic medication. 04/22 - Patient remains unwilling for medications, but is interacting with peers appropriately and attending groups. Will try discontinuing private room and placing him with a roommate, is perhaps increased socialization will be therapeutic for him. 04/23 -no change, patient still unwilling for medications(other than marijuana and benzos) 04/24 -The patient remains angry, suspicious, and largely uncommunicative. He spoke briefly with the attending psychiatrist today in order to request privil eges to go outdoors with staff, and was able to cooperate with a fresh air break, but subsequently was angry, bumptious, and willing to cooperate with assessments. 04/25 - valium 5mg dose yesterday appeared to lead to some disinhibited verbally agitated behavior, with the valium dose being discontinued following that one dose. Pt is fixated on valium and on temazepam. refusal to take other medica tions with. Handling a roommate decently currently. Pt refusing to attend groups. Limited engagement with peers and staff occurring. no change to plan today 04/26 no change to plan today 04/27 -The patient cooperated with an interview today after several weeks of flatly refusing, sometimes rudely refusing to speak to providers. Today, the patient not voiced any delusional material and was able to specifically answer questions regarding perceptual disturbances. 04/28 -no change. 04/29 -start ziprasidone 20 mg twice daily with meals. Reviewed risks, benefits and common side effects including sedation and the need to take with food. 04/30 maintained ziprasidone at current dose today given pt's tendency to refuse medications mikey if notice any s/e, considering raising dose tomorrow 05/01 -Based on the patient's behavior today there seems to be no evidence that the patient is enjoying any particular benefit from ziprasidone. To the contrary, he may have become more bumptious and withdrawn. My recommendation is that we continue to observe him on ziprasidone 20 mg twice a day before increasing his dose further, possibly over the weekend. (2) Substance abuse: 02/25 - Pt has reported history of substance abuse, and recommendation has consistently been for avoidance of substances with significant abuse potential. - PDMP queried - most recent prescriptions below - lorazepam 0.5mg #60 tabs for 30 day supply - Dr. Alves - filled 02/12/2019 - alprazolam 0.5mg #90 tabs for 30 day supply - Dr. Lopez - filled 01/16/2019 - temazepam 30mg #30 caps for 30 day supply - Dr. Lopez - filled 01/16/2019 - Will continue lorazepam 0.5mg BID prn on admission, as only medication that is seemingly active - toxicology screen is negative for benzodiazepines, which questions if he has been taking the medication appropriately - Ideally will taper and discontinue the lorazepam, as recommendation remains that substances with abuse potential be avoided 02/26 -The patient's outpatient providers, during a meeting this morning, report that the patient tends to successfully convince physicians to prescribe benzodiazepines for him and that, in the past, he has abused him to the degree that he is practically obtunded. 02/27 -A repeat check of the PDMP reveals that the patient is consistently being prescribed lorazepam 0.5 mg twice daily (number 60/month) by a Dr. Brent Alves. He is also being prescribed alprazolam 0.[address] mg [address] Jeff Lopez, with the most recent previous prescription of alprazolam being on 01/16/[address] Lopez also prescribed temazepam 30 mg capsules #30 on 01/16/2019. According to his residential providers, no temazepam capsules were found among the patient's belongings. His most recent prescription for lorazepam 0.5 mg tablets was filled on 02/12/2019. 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 In the past, he reportedly has used clonazepam and temazepam. -I advised the patient that because of his history of misuse of benzodiazepines we would not be prescribing benzodiazepines during his hospital stay. An as needed order for lorazepam has not been used during hospital stay, and I discontinued the order today. 03/02 - Will need to coordinate care with his PCP and outpatient psychiatrist prior to discharge regarding the above. 03/04 - Charge nurse spoke with the above offices regarding concern for continued benzodiazepine prescriptions - Records will be faxed to their offices on discharge, as all benzodiazepines were discontinued during this hospitalization 03/06 -The patient did not request benzodiazepines and did not complain of anxiety today. I suggested to him that perhaps Abilify is also helping with anxiety in his case, and he responded by saying "perhaps." 03/09 -Today, the patient is insisting that what he needs is "benzodiazepines," and explains that the reason he "needs" benzodiazepines is that he has "benzodiazepine receptors," and that he is the only medications that work. He is unable to process warnings about the risks of benzodiazepines in the elderly, including increased risk of falls and mortality. Clearly, the patient is seeking benzodiazepines and has no insight into the associated risks. He also insists that he has never had trouble with benzodiazepines in the past, although there is well-documented of this. 03/10 -Today, the patient repeated his insistence that he needs benzodiazepines and that benzodiazepines are the only medications that work because he has "benzodiazepine receptors." After being told that everyone has central nervous system receptors to which benzodiazepines may attach, he replied, "That may be, but some of people need to have benzodiazepines forearm benzodiazepine receptors. 03/12 -Continues to request Benzodiazepines. 03/13 -Requests Valium for his "benzodiazepines receptors." 03/27 -Refuses to cooperate with assessment today, but has recently told staff that he needs "either Valium or Ativan." -The patient apparently has no working insight into his history of abuse of prescription medications (benzodiazepines). 04/15 -The patient has not reference to request for benzodiazepines recently. However, the context is that he has not communicated much of anything directly, a other than the occasional need for self-care items. 04/24 -Today, the patient repeats his request for benzodiazepines, and insists that he is "supposed" to be taking diazepam 10 mg 3 times a day and temazepam for sleep every night. 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 Unfortunately, the exact opposite seems to have occurred. Not only was the patient was uncooperative subsequent to a dose of Valium, he seems to have been disinhibited by it and shouting "get out" or "get away" several times when approached by staff 04/25 - pt focused on seeking temazepam, or Valium 04/27 -The patient does have a history of substance dependence. However, the current plan and expected disposition is for the patient to be transferred to an extended care inpatient psychiatric unit where abuse of prescribed medications is unlikely to occur. Today, the patient calmly requests temazepam and says that he has tried a number of different sleeping pills, but "that is the one that works." The patient is also able to clearly say that he understands that temazepam is physically habituating that there are associated risks associated with temazepam including, but not limited to, a risk of falls, accidents, confusion, and depression. He tells us that at prescribed dosages he has not had any of these problems in the past. -Today, I agreed to a trial of temazepam 15 mg at bedtime, a dose that the patient says has been effective in the past. 04/30 close monitoring of temazepam given above, so far not taken 05/01 -After persistently insisting that he had to have temazepam in order to sleep and that nursing staff reports that he is sleeping through the night are wrong because he tends to rest with his eyes closed, the patient has not ask for t emazepam and has not been given temazepam since it was ordered a week ago. The patient declined to explain why he has not ask for it, and refuses to answer questions today as to whether he is sleeping well without. In fact, when asked to explain why he had not taken any after insisting on having a prescribed, he shouted "get the hell out!!." Perhaps the patient has forgotten that it was ordered, but he seemed to remember the day after it was ordered and ask for not asked for it since. Our thought is that he may have somehow incorporated the order for temazepam into his delusional when belief system, based on his rage when asked to explain why he hasn't asked for it. (3) Hypertension: 02/25 - Continue home dose of clonidine 0.1mg qHS 03/01 Watch mildly elevated blood pressures as patient has been refusing clonidine 03/03 - BP normal past two days, and low today 03/10 -The patient's blood pressure today was 136/73. His pulse was 71 03/14 - elevated BP it is not urgent but will need monitored. 03/15 - BP WNL 03/26 - BP continues to be WNL 04/02 - BP remains within normal limits; continue daily vitals per standard admission order set - Will consider acute phase of this problem resolved at this time Risk Factors Assessment Male: Yes : Yes Do You Have Access To A Gun?: No Health Problems: Yes Mental Health Diagnoses: Yes Substance Use Disorders: Yes Protective Factors Assessment [employer] Beliefs: No : No Responsible for Young Children: No Employed: No Stable Relationships: No Supportive Family: No Good Rapport with Provider: No Absence of Any Risk Factors Above: No Interval History Identifying Information SCOTT ROBERTO is a 73-year-old M who currently lives at a [facility] in [place], has a history of schizophrenia, and is known to our unit from several previous admissions, most recently in 09/2016. He was admitted on 02/24/19 16:40 on a 302 involuntary commitment for exacerbation of schizophrenia and heightened paranoia resulting in belief he needed to hide in a dumpster to seek refuge from impending bombings. He was found by [facility] staff and brought to the ED by police, and is on a 304 involuntary commitment as of 03/16/19. He has been referred to [facility] for senior care treatment. Chief Complaint "Get the Hell Out!!!". Review of Systems Sleep Information Total Hours of Sleep: 5.75 Sleep Comments: pt on q-15 minute checks Meal Information Percent Meal Consumed - Breakfast: 100 Percent Meal Consumed - Lunch: 100 Percent Meal Consumed - Dinner: 100 Nutrition Comment: per meal record Subjective Subjective Patient was seen & assessed and interval progress reviewed with treatment team. I attempted to meet individually with the patient in order to assess his current mental status, evaluate his response to treatment, consider with the patient any changes in his medication regimen, and address issues and concerns that may arise. However, the patient flatly refused to speak with me, when I explained that I would need to talk to him in order to evaluate any further need for PRN temazepam, given his insistence last week that he was not sleeping and could only sleep with temazepam within the context of the fact that for a solid week he has not requested it and, nursing staff continue to report that he is sleeping well. Patient's response was to repeat "get the hell out!!" I asked him if he was having any difficulties associated with Geodon which she had recently started, and he answered "No Now GET OUT!!" This seemed to be no further point and attempting to speak with him. I had tried several times earlier in the day, and although the patient was not quite as bumptious he simply walked away from me. Physical Exam Psychiatric The patient responds to his name. He does not cooperate with any questions regarding orientation. Apperance: appropriately dressed, appropriately groomed and appeared stated age Eye Contact: + poor eye contact Motor Behavior: steady gait and station Shouts, "get the hell out!!" Had previously offered "I am busy," (was staring out the window) and "no" when asked if he was having any problems or needed anything. Affect: + irritable affect Does not cooperate with questions today. Thought processes cannot be assessed due to the fact the patient will not agree to speak with me. Reports from staff are that he speaks only in short sentences and seems suspicious. The patient does not cooperate with an interview. My sense is that he is somehow incorporated me and several other people into a delusional system. He became enraged when I asked him why he was not asking for temazepam after insisting that he needed to take it for sleep. My guess would be that he has some paranoid belief in order which I told him that I had given for him to receive a certain medication. Has not agreed to be interviewed. He is voiced no suicidal thoughts to staff, and has not engaged in any self-injurious behaviors. He attends to his daily needs with prompts. Does not agree to be interviewed. Has not made any rest of move towards the person or property of others. The patient has spent much of today staring intently out of his window and when approached by people, including the psychiatrist, he tells us that he is "busy." It may be that he is responding to perceptual disturbances or attempting to broadcast thoughts because of the duration of his time spent staring out the window and the fact that little or nothing is happening in the view. Estimated Intelligence: + above average estimated intelligence Insight: + severely impaired insight Judgement: + severely impaired judgement Vital Signs (Past 24 Hours) Last Vital Signs Temp 36.6 C 05/01/19 06:54 Pulse 78 05/01/19 06:55 Resp 16 05/01/19 06:54 BP 149/72 H 05/01/19 06:55 Pulse Ox 96 02/24/19 08:10 Results & Data Current Inpatient Medications Current Inpatient Medications: Current Inpatient Medications Acetaminophen (Tylenol) 650 mg PO Q4H PRN PRN Reason: Headache or Minor Fever Stop: 05/23/19 08:14 Al Hydrox/Mg Hydrox/Simethicone (Maalox) 30 ml PO Q4H PRN PRN Reason: GI Upset Stop: 05/23/19 08:14 Benztropine Mesylate (Cogentin) 0.5 mg PO BID PRN PRN Reason: dystonia Stop: 05/23/19 08:14 Bismuth Subsalicylate (Kaopectate) 15 ml PO PRN PRN PRN Reason: Loose Stool Stop: 05/23/19 08:14 Clonidine HCl (Catapres) 0.1 mg PO HS MAG Stop: 05/23/19 21:59 Last Admin: 04/30/19 21:12 Dose: Not Given Documented by: Cyanocobalamin (Vitamin B-12) 500 mcg PO DAILY MAG Stop: 05/23/19 08:59 Last Admin: 05/01/19 08:57 Dose: 500 mcg Documented by: Hydroxyzine HCl (Vistaril) 25 mg PO Q4H PRN PRN Reason: Anxiety Stop: 05/23/19 08:14 Hydroxyzine HCl (Vistaril) 50 mg PO HSZ PRN PRN Reason: Insomnia Stop: 05/23/19 08:14 Magnesium Hydroxide (Milk Of Magnesia) 30 ml PO DAILY PRN PRN Reason: Heartburn Stop: 05/23/19 08:19 Magnesium Oxide (Mag-Ox) 400 mg PO DAILY MAG Stop: 05/23/19 08:59 Last Admin: 05/01/19 08:56 Dose: 400 mg Documented by: Miscellaneous (Remove Nicoderm Patch) 1 ea N/A HS MAG Stop: 05/23/19 21:59 Last Admin: 04/30/19 21:13 Dose: Not Given Documented by: Multivitamins (Multivitamin Tab) 1 tab PO DAILY MAG Stop: 05/23/19 08:59 Last Admin: 05/01/19 08:57 Dose: 1 tab Documented by: Nicotine (Nicoderm Cq) 14 mg TD QAM MAG Stop: 05/23/19 08:59 Last Admin: 05/01/19 08:59 Dose: 14 mg Documented by: Olanzapine (Zyprexa) 10 mg IM HS PRN PRN Reason: Undecided Stop: 05/23/19 08:19 Pyridoxine HCl (Vitamin B-6) 100 mg PO DAILY MAG Stop: 05/23/19 08:59 Last Admin: 05/01/19 08:57 Dose: 100 mg Documented by: Sodium Chloride (Greene Nasal) 1 - 2 sprays NA PRN PRN PRN Reason: Nasal Dryness/Congestion Stop: 05/23/19 08:19 Ziprasidone (Geodon) 20 mg PO BIDM MAG Stop: 05/29/19 17:44 Last Admin: 05/01/19 17:36 Dose: 20 mg Documented by: Mental Health & Subst Abuse Tx Therapist Name of Therapist: Sammy Quality Lead Name of Quality Lead: Shruti Lopez Phone Number for Quality Lead: Case Management Appointment Comment: [phone], [place] [address] Post Discharge Appointments Primary Care Physician Name Of Family Doctor: Dr. Lopez Contact Information Discharge Discharge Address: [address] [place] [id number] CPT Code CPT Code 02280 (1) Schizophrenia Schizophrenia type: paranoid schizophrenia Qualified Code(s): F20.0 - Paranoid schizophrenia (2) Hypertension Hypertension type: essential hypertension Qualified Code(s): I10 - Essential (primary) hypertension
[2019-05-01] MEDS: cloNIDine HCL 0.1 MG TAB PO SCH (21:02)
[2019-05-02] MEDS: MULTIVITAMIN TAB PO SCH (08:51)
[2019-05-02] MEDS: MAGNESIUM OXIDE 400 MG TAB PO SCH (08:51)
[2019-05-02] MEDS: PYRIDOXINE HCL 50 MG TAB PO SCH (08:51)
[2019-05-02] MEDS: CYANOCOBALAMIN 500 MCG TABLET (VITAMIN B-12) PO SCH (08:51)
[2019-05-02] MEDS: ZIPRASIDONE HCL 20 MG CAP PO SCH ×2 (08:51→17:25)
[2019-05-02] MEDS: NICOTINE 14 MG/24 HR PATCH TD SCH (08:54)
--- NOTE | 2019-05-02 09:17 | Psychiatric Progress Note ---
Date of Service May 02, 2019 Impression / Recommendations Impression Patient remains uncooperative, refusing most groups. He briefly had a roommate, but was placed back in a private room after multiple episodes of going into other patient's rooms and staring at them, once wearing nothing but a towel. His [facility] bed was relinquished due to ongoing psychotic symptoms and unwillingness to engage in treatment, and although he has been accepted at the [facility] since 04/02/2019, we still do not have a bed date. He has been refusing antipsychotic medications and had not taken anything over a 2 week., but 04/29 agreed to a trial of ziprasidone, which she is tolerating well. Given the chronicity and severity of his condition, it may take weeks to see benefit from medication. The plan is for the patient to be transferred for long-term psychiatric hospitalization, given his inability to cooperate with treatment, given his inability to attend his own physical needs without the availability of the full spectrum of psychiatric services at the inpatient level of care, and ongoing psychosis with auditory hallucinations and paranoia. (1) Schizophrenia: the interview.02/25 - Continue home medication regimen - as refusing offerings of his antipsychotic, will likely require olanzapine IM (or alternative agent) over objection, given clear evidence of paranoia and delusional thought process - previously stabilized on this medication - Pt agreeable to taking all other medications, with exception of antipsychotic as mentioned above - Admitted to a locked inpatient behavioral health unit, on q15 minute safety checks - Encourage medication initiation/adjustments as indicated - Encourage participation in group and recreational therapies - Gather collateral information from outpatient providers and chcf sta ff - Suggest family meeting to involve outpatient supports in safety planning - Reschedule appropriate aftercare appointments 02/26 -Patient indicates willingness to sign a release for the [facility], will get collateral from their staff. -File for 303 involuntary commitment to be held tomorrow. -Recommend medications over objection, with an IM Zyprexa backup for refusal of oral medication. Involve outpatient treatment team to discuss ways to improve stability and compliance; consider long-acting injectable antipsychotic. -Order fasting labs for monitoring on an atypical antipsychotic once patient is more cooperative. 02/27 -The patient was retrained at his involuntary commitment hearing (303) this morning. -He has continuously and consistently refused psychiatric medications to date. However, today, when I explained that that a option that might become necessary in his case is medication over objection, and an intramuscular form, the patient said that he understood and that he would try medications that I prescribe. His initial preference would be olanzapine, but because olanzapine is not available in a long acting depot form, we would first like to try aripiprazole. He indicates that he is taken aripiprazole in the past and has been able to tolerate it, although he does not believe that it has been particularly helpful. -A trial dose of aripiprazole 15 mg by mouth, as a one-time dose, has been ordered and he assessed for efficacy. 02/28 -Appears to be tolerating initiation of Abilify so far. Remains delusional, paranoid. May consider further titration tomorrow -Aricept discontinued at patient's request on 02/27/2019. The medication has not been demonstrated to be efficacious for cognitive impairment associated with long-standing schizophrenia however we should be vigilant for slowing of mentation following discontinuation. 03/01 Patient fixated and irrational regarding access to clothing item as above today. Hospital environment becoming incorporated and delusions. Consider possibility that the aripiprazole is contributing to activation. We will increase to 20 mg tomorrow and also start Risperdal 1 mg p.o. twice daily as as needed. 03/02 - Continue with aripiprazole at 20mg daily, consider need for further titration - if tolerating and effective, eventual plan will be for conversion to Abilify Maintena - Pt has not yet utilized risperidone 03/03 - Increase aripiprazole to 25mg (equivalent to 30mg pill) and change to liquid formulation to decrease risk of cheeking/nonadherence, as patient does not believe he needs medication and had been noncompliant prior to hospitalization. - Fasting glucose and lipid profile ordered for tomorrow for monitoring on an atypical antipsychotic. - Private room due to psychosis, agitation, and inappropriate disrobing/sexual behavior. - Meeting with [facility] and [facility] staff when patient able to tolerate. 03/04 - Continue aripiprazole 25mg liquid (30mg pill equivalent) and continue to observe for improvement in thought process/content - consider conversion to Maintena if effective, versus trial of another agent if improvement remains limited - Fasting labs reviewed - all values WNL - Continue medically necessary private room - Request meeting with [facility] staff, in order to obtain details about patient's proximity to baseline 03/05 -Patient refusing liquid aripiprazole, but agrees to take the pill: Ordered 30 mg daily. -Schedule meeting with his bilingual case manager, CRR and psych rehab staff. Consider involuntary outpatient commitment at the time of discharge. 03/06 -The patient has improved in that he is more reality based at this point. He continues to harbor fixed, systematized delusions, but is generally able to focus on reality based topics. -Although the patient tells me that he does not feel that aripiprazole has been effective, he is able to accept my opinion in the opinion of the staff that he has improved in response to aripiprazole. -The patient's main objection to aripiprazole oral solution is that he does not like the way it tastes, and within this context, he tells us that he is willing to accept Abilify Maintenaand requests that it be injected into his but tock. Abilify Maintena 300 mg IM ordered, and oral Abilify discontinued. We will resume oral Abilify if the patient subsequently changes his mind and refuses the injection. 03/07 resuming abilfiy oral given his refusal of FARAH form of abilify 03/08 is taking abilify po form but refusing abilify maintena form. advise close monitoring for potential of checking given pt's tendency to not want to take medications. 03/09 -The patient is flatly refusing to take aripiprazole in the form of Abilify Maintena. He is also been hesitant to take oral Abilify, but has been doing so. -The patient's lack of cooperation is thought possibly to be related to an un-expressed desire to not be discharged back to the community. He told me today that he left his meeting with his community providers after a few seconds because "just the side of them made me extremely anxious. My pulse elevated to 140." Later, he told me that he was still anxious about it and his pulse was "still around 130." The patient allowed me to take his pulse, and it was approximately 76. At that point he said, "did I say pulse? I meant systolic blood pressure." And when I pointed out that his systolic blood pressure of 130 is not considered to be a particular concern, he said "I mean diastolic." -Our hope had been that the patient would agree to accept a Depo form of medication. He was refusing Haldol Decanoate because of various side effects. Risperidone constant was ruled out as a first-line Depo medication because of the frequency of administration (the patient tends to get into power struggles over medications) and because he says that he is sensitive to "big needles." Invega would be an option, but currently the patient is being so uncooperative that our concern would be that he would cheek the oral tablets that we would have to give him first. Accordingly, the new strategy will be to discontinue Abilify, and resume olanzapine with olanzapine IM over objection if necessary. We will begin the olanzapine Zydis 20 mg at bedtime 03/10 -The patient took the prescribed dose of olanzapine Zydis 20 mg at bedtime last night. Today, he tells me that it "did not help at all." However, staff report that he has been somewhat more agreeable, more pleasant, and less paranoid today. -As he has with other providers, today he told me that I should have given him olanzapine 5 mg "to start", and I explained that he was already on olanzapine 20 mg when he came into the hospital and we know that he is able to tolerate that dose. He tells me that he did, in fact tolerate the dose and is not aware of any side effects, but, somewhat illogically, insisted that the dose was "too high for a starting dose." 03/11 - Continue current medication regimen at this time - olanzapine 20mg daily - Encourage participation in the milieu and in group programming as tolerated 03/12 -Continue current medication regimen. The patient's condition has not yet improved. -The patient does participate in select groups, but often tends to be disruptive. 03/13 -Today, the patient seems to be somewhat more cooperative and less frankly delusional. It was possible to engage in a mostly reality based conversation for 5 or 10 minutes at a time. Also, although he was unhappy with me when I refused to provide him with a dose of Valium for anxiety, he was able to remain pleasant and calm at this time, did not storm from the room." 03/14 and 03/15 -no change in medication will work on therapeutic alliance given patient is not participating 03/16 -304 involuntary commitment granted. -Patient remains completely uncooperative with treatment, refused his Zyprexa Zydis last evening, but then ultimately took it before he received the injection. I have a high suspicion for cheeking of antipsychotic medication, and we will continue to be vigilant with mouth checks, and work towards a long- acting injectable. 03/17 -Patient has been on Zyprexa 20 mg at bedtime for 1 week, with limited response. He is refusing to discuss other medication options. Per records, he has been prescribed up to 30 mg olanzapine in the past, so will increase his dose to this previously tolerated dose, as it is 1 of the few medications he has been willing to take. Continue IM backup for refusal, and Zyprexa Zydis formulation to decrease risk of cheeking. He is not compliant with mouth checks, but have asked staff to try to observe him for 10 minutes after taking the Zydis to ensure he is not spitting it out before it dissolves. 03/18 -Continue Zyprexa Zydis 30 mg at bedtime with IM backup. Consider switch to a different medication (?oral paliperidone with IM backup) if irritability and agitation continues. He has tried virtually every atypical antipsychotic and reports none of them were effective (although some trials were short due to nonadherence) and has a history of dystonia on haloperidol. Clozapine would be a reasonable choice, but he has been unwilling to even discuss medication options. -Consider some component of cognitive decline which could be contributing to his worsening presentation and will need to be monitored and worked up further once he is more psychiatrically stable. -Refer to [facility] in the event that he does not improve and long-term inpatient treatment is needed. 03/19 - Proceed with [facility] referral. 03/20 - Continue current medication regimen; patient refused EKG and CXR yesterday - refused again today - Continue attempts to gather information to make a referral to [facility] 03/23 - Proceed with [facility] referral - patient has refused EKG and CXR for multiple attempts. We will send most recent tests available - Continue current medication regimen at this time 03/24 -Attempted to hold diversion meeting with his outpatient [facility], ch[facility] director, and the [facility]ID; patient refused to attend or participate in the meeting. 03/25 - 03/26 - Continue treatment plan as above - no change in patient's condition and he remains unwilling to participate meaningfully in treatment - Continue with [facility] referral 03/27 -The patient has been informed that the plan at this point is to transfer him to [facility] for long-term inpatient psychiatric treatment, given his refusal to adhere with treatment and his associated behaviors in the community when not adherent with psychiatric treatment. -The patient continues to refuse mouth checks after given dosages of Zyprexa Zydis, and there is some question regarding whether he is actually ingesting this medication. He also would not cooperate with laboratory testing. -There has been a question regarding the patient's cognitive functions, and prior to admission he had been taking Aricept. When he does cooperate with this, I have not seen evidence of any substantial cognitive impairment. He may have mild cognitive impairment, but does not fully cooperate with formal cognitive assessment. He easily recalls the names of his providers, the names of the medications he is taking, the names of the various infectious agents that he believes are causing some of his psychiatric symptoms, the names of certain chemicals that he believes will rid him of the reference to infections, and is able to discuss current events such as recent news items. His assertion that he wants to return to his apartment in the community seems belied by his steadfast refusal to cooperate with those interventions I would make it possible for him to return, and there is some suspicion that although the patient remains floridly psychotic he may also be intentionally sabotaging discharge. 03/28 - 03/30 -There is been no record changer tester the past 2 weeks, and long-term inpatient treatment at the [facility] is indicated. 03/31 - Continue current medication regimen - Pt briefly verbalized willingness for FARAH, but was not agreeable to medication adjustments to allow for this to be possible - If he should change his mind; recommendation is for trial of Invega orally to establish tolerability, then consideration for Invega Sustenna - unwilling for this today 04/01 - 04/03 - Continue current medication regimen - Continues to refuse FARAH, will continue discussion daily as this is the reported preference of his CRR 04/04 -Questionable positive PPD measuring 13 mm but history of confinement places him at higher risk. Patient refused chest x-ray today but we will reapproach. No active symptoms of infection. Order for sputum culture and smear today for confirmation. 8/18 -PPD now appears negative. Would suggest follow through with sputum smear and culture for confirmation as previously ordered -Continue treatment plan as above 04/06 - PPD reportedly negative, patient unable to follow-up with sputum smear - therefore discontinued - Continue medication regimen as above - unwilling to discuss conversion to an FARAH - Meeting today with representation from [facility] to discuss discharge planning 04/07 - Continue medication regimen as above - remains unwilling to discuss changes - Additional meeting with CRR and CM scheduled for next week - We have been regularly assessing patient's condition and appropriateness to go outside since his 30-day treatment plan review. As patient continues to be unwilling to participate in a meaningful conversation with providers regarding his condition, we continue to be unable to determine if he is appropriate to be taken off the unit - therefore will await ability to discuss the topic in a meaningful way prior to making this determination. Will continue regular evaluation. 04/08 - 04/12 - Continue current medication regimen, as patient unwilling to discuss changes - Attempted again to determine if appropriate to go outside, patient unwilling to participate in conversation despite being told the goal of allowing him to go outside - Meeting with CM and CRR director scheduled for 04/13 at 1030 04/13 - Continue Zyprexa 30mg daily - unwilling to engage in conversation to discuss changes - Remains unwilling to engage in conversation to determine if he is appropriate to go outside, he has been made aware this is a possibility for him - Meeting for attempted diversion resulted in decision to no longer hold patient's CRR bed, [facility] admission is supported based on little to no improvement since admission and limited willingness to engage in conversations regarding medication adjustments - We have been asked to attempt to get a QuantiFERON-TB Gold Plus test, despite negative PPD reading within acceptable timeframe - pt unwilling to engage in conversation to obtain consent, further indicating why long-term inpatient psychiatric hospitalization is necessary. Will continue to attempt to gain consent for this testing to be completed 04/15 -The patient is slightly more communicative today and that he does answer at least one question which was whether he would be in agreement if we offered him a drug holiday from olanzapine. His response was in the affirmative.. He also said "thank you." -The patient continues to appear suspicious and he clearly is angry at and unwilling to cooperate with staff. He is particularly bumptious with individuals who he sees as not fully trained and fully qualified. -The plan remains transfer to the [facility] for long-term psychiatric care. Our hope remains that we will be able to divert the patient from the [facility] hospital, but the patient, as noted above, remains uncommunicative and resistant. Perhaps contributing to the patient's obvious anger and distress is the fact that he has learned this week that his residential program is unwilling to allow him to return and has stopped holding his bed for other individuals. 04/16 - Continue current treatment plan, which includes holiday from olanzapine as a rapport building attempt, and due to concerns that he is more irritable and resistant to treatment - which is obviously not beneficial for his overall condition. - Attempted to communicate with the patient today via written/printed text - will add addendum to this note if patient was willing to complete the sheet and respond to questions 04/21 -Patient remains uncooperative and unwilling to participate in interviews, bu t has been out of his room more and attending some groups. He remains unwilling to discuss treatment options, including antipsychotic medication. 04/22 - Patient remains unwilling for medications, but is interacting with peers appropriately and attending groups. Will try discontinuing private room and placing him with a roommate, is perhaps increased socialization will be therapeutic for him. 04/23 -no change, patient still unwilling for medications(other than marijuana and benzos) 04/24 -The patient remains angry, suspicious, and largely uncommunicative. He spoke briefly with the attending psychiatrist today in order to request privileges to go outdoors with staff, and was able to cooperate with a fresh air break, but subsequently was angry, bumptious, and willing to cooperate with assessments. 04/25 - valium 5mg dose yesterday appeared to lead to some disinhibited verbally agitated behavior, with the valium dose being discontinued following that one dose. Pt is fixated on valium and on temazepam. refusal to take other medications with. Handling a roommate decently currently. Pt refusing to attend groups. Limited engagement with peers and staff occurring. no change to plan today 04/26 no change to plan today 04/27 -The patient cooperated with an interview today after several weeks of flatly refusing, sometimes rudely refusing to speak to providers. Today, the patient not voiced any delusional material and was able to specifically answer questions regarding perceptual disturbances. 04/28 -no change. 04/29 -start ziprasidone 20 mg twice daily with meals. Reviewed risks, benefits and common side effects including sedation and the need to take with food. 04/30 maintained ziprasidone at current dose today given pt's tendency to refuse medications mikey if notice any s/e, considering raising dose tomorrow 05/01 -Based on the patient's behavior today there seems to be no evidence that the patient is enjoying any particular benefit from ziprasidone. To the contrary, he may have become more bumptious and withdrawn. My recommendation is that we continue to observe him on ziprasidone 20 mg twice a day before increasing his dose further, possibly over the weekend. 05/02 -continue current medication and consider dose increase next week. It is likely that it will take weeks to show benefit from antipsychotic medication given the severity and chronicity of his symptoms, and his history of treatment resistance. He would be a good candidate for clozapine, but has never been willing to consider it. (2) Substance abuse: 02/25 - Pt has reported history of substance abuse, and recommendation has consistently been for avoidance of substances with significant abuse potential. - PDMP queried - most recent prescriptions below - lorazepam 0.5mg #60 tabs for 30 day supply - Dr. Alves - filled 02/12/2019 - alprazolam 0.5mg #90 tabs for 30 day supply - Dr. Lopez - filled 01/16/2019 - temazepam 30mg #30 caps for 30 day supply - Dr. Lopez - filled 01/16/2019 - Will continue lorazepam 0.5mg BID prn on admission, as only medication that is seemingly active - toxicology screen is negative for benzodiazepines, which questions if he has been taking the medication appropriately - Ideally will taper and discontinue the lorazepam, as recommendation remains that substances with abuse potential be avoided 02/26 -The patient's outpatient providers, during a meeting this morning, report that the patient tends to successfully convince physicians to prescribe benzodiazepines for him and that, in the past, he has abused him to the degree that he is practically obtunded. 02/27 -A repeat check of the PDMP reveals that the patient is consistently being prescribed lorazepam 0.5 mg twice daily (number 60/month) by a Dr. Brent Alves. He is also being prescribed alprazolam 0.[address] mg [address] Jeff Lopez, with the most recent previous prescription of alprazolam being on 01/16/[address] Lopez also prescribed temazepam 30 mg capsules #30 on 01/16/2019. According to his residential providers, no temazepam capsules were found among the patient's belongings. His most recent prescription for lorazepam 0.5 mg tablets was filled on 02/12/2019. 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 In the past, he reportedly has used clonazepam and temazepam. -I advised the patient that because of his history of misuse of benzodiazepines we would not be prescribing benzodiazepines during his hospital stay. An as needed order for lorazepam has not been used during hospital stay, and I discontinued the order today. 03/02 - Will need to coordinate care with his PCP and outpatient psychiatrist prior to discharge regarding the above. 03/04 - Charge nurse spoke with the above offices regarding concern for continued benzodiazepine prescriptions - Records will be faxed to their offices on discharge, as all benzodiazepines were discontinued during this hospitalization 03/06 -The patient did not request benzodiazepines and did not complain of anxiety today. I suggested to him that perhaps Abilify is also helping with anxiety in his case, and he responded by saying "perhaps." 03/09 -Today, the patient is insisting that what he needs is "benzodiazepines," and explains that the reason he "needs" benzodiazepines is that he has "benzodiazepine receptors," and that he is the only medications that work. He is unable to process warnings about the risks of benzodiazepines in the elderly, including increased risk of falls and mortality. Clearly, the patient is seeking benzodiazepines and has no insight into the associated risks. He also insists that he has never had trouble with benzodiazepines in the past, although there is well-documented of this. 03/10 -Today, the patient repeated his insistence that he needs benzodiazepines and that benzodiazepines are the only medications that work because he has "benzodiazepine receptors." After being told that everyone has central nervous system receptors to which benzodiazepines may attach, he replied, "That may be, but some of people need to have benzodiazepines forearm benzodiazepine receptors. 03/12 -Continues to request Benzodiazepines. 03/13 -Requests Valium for his "benzodiazepines receptors." 03/27 -Refuses to cooperate with assessment today, but has recently told staff that he needs "either Valium or Ativan." -The patient apparently has no working insight into his history of abuse of prescription medications (benzodiazepines). 04/15 -The patient has not reference to request for benzodiazepines recently. However, the context is that he has not communicated much of anything directly, a other than the occasional need for self-care items. 04/24 -Today, the patient repeats his request for benzodiazepines, and insists that he is "supposed" to be taking diazepam 10 mg 3 times a day and temazepam for sleep every night. 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 Unfortunately, the exact opposite seems to have occurred. Not only was the patient was uncooperative subsequent to a dose of Valium, he seems to have been disinhibited by it and shouting "get out" or "get away" several times when approached by staff 04/25 - pt focused on seeking temazepam, or Valium 04/27 -The patient does have a history of substance dependence. However, the current plan and expected disposition is for the patient to be transferred to an extended care inpatient psychiatric unit where abuse of prescribed medications is unlikely to occur. Today, the patient calmly requests temazepam and says that he has tried a number of different sleeping pills, but "that is the one that works." The patient is also able to clearly say that he understands that temazepam is physically habituating that there are associated risks associated with temazepam including, but not limited to, a risk of falls, accidents, confusion, and depression. He tells us that at prescribed dosages he has not had any of these problems in the past. -Today, I agreed to a trial of temazepam 15 mg at bedtime, a dose that the patient says has been effective in the past. 04/30 close monitoring of temazepam given above, so far not taken 05/01 -After persistently insisting that he had to have temazepam in order to sleep and that nursing staff reports that he is sleeping through the night are wrong because he tends to rest with his eyes closed, the patient has not ask for temazepam and has not been given temazepam since it was ordered a week ago. The patient declined to explain why he has not ask for it, and refuses to answer questions today as to whether he is sleeping well without. In fact, when asked to explain why he had not taken any after insisting on having a prescribed, he shouted "get the hell out!!." Perhaps the patient has forgotten that it was ordered, but he seemed to remember the day after it was ordered and ask for not asked for it since. Our thought is that he may have somehow incorporated the order for temazepam into his delusional when belief system, based on his rage when asked to explain why he hasn't asked for it. (3) Hypertension: 02/25 - Continue home dose of clonidine 0.1mg qHS 03/01 Watch mildly elevated blood pressures as patient has been refusing clonidine 03/03 - BP normal past two days, and low today 03/10 -The patient's blood pressure today was 136/73. His pulse was 71 03/14 - elevated BP it is not urgent but will need monitored. 03/15 - BP WNL / - BP continues to be WNL 04/02 - BP remains within normal limits; continue daily vitals per standard admission order set - Will consider acute phase of this problem resolved at this time Risk Factors Assessment Male: Yes : Yes Do You Have Access To A Gun?: No Health Problems: Yes Mental Health Diagnoses: Yes Substance Use Disorders: Yes Protective Factors Assessment Zoroastrianism Beliefs: No : No Responsible for Young Children: No Employed: No Stable Relationships: No Supportive Family: No Good Rapport with Provider: No Absence of Any Risk Factors Above: No Interval History Identifying Information SCOTT ROBERTO is a 73-year-old M who currently lives at a [facility] in [place], has a history of schizophrenia, and is known to our unit from several previous admissions, most recently in 09/2016. He was admitted on 02/24/19 16:40 on a 302 involuntary commitment for exacerbation of schizophrenia and heightened paranoia resulting in belief he needed to hide in a dumpster to seek refuge from impending bombings. He was found by [facility] staff and brought to the ED by police, and is on a 304 involuntary commitment as of 03/16/19. He has been referred to [facility] for terminal gauger treatment. Chief Complaint "I'm good, okay". Review of Systems Sleep Information Total Hours of Sleep: 8.25 Sleep Comments: pt on q-15 minute checks Meal Information Percent Meal Consumed - Breakfast: 100 Percent Meal Consumed - Lunch: 100 Percent Meal Consumed - Dinner: 100 Nutrition Comment: per meal record Subjective Subjective Patient was seen & assessed and interval progress reviewed with nursing and social work. Staff report he has been isolating in his room, often staring out the window, and does not respond to staff attempts to engage him. It appears that he is attending to hallucinations at times, but he often denies them when questioned by staff. He has been taking medications without difficulty, eating, and performing ADLs. On my assessment, he reports good mood, and denies thoughts of harming himself or others. He reports ongoing lack of sleep, stating that he has never slept. When asked if he has ever had a sleep study, he says that he looked into it, "but they would only prescribe Ambien." He cannot further explain this. He denies any side effects to the ziprasidone, but says it has not helped, "and I don't think anything ever will." Physical Exam Psychiatric Orientation: alert and cooperative Apperance: appropriately dressed, appropriately groomed and appeared stated age Eye Contact: good eye contact Motor Behavior: steady gait and station and no abnormal motor movements Minimal speech, normal rate, volume, and tone Euthymic with an irritable edge. "I'm fine." Thought Process: goal directed thought process Does not endorse delusions today Suicidal Thoughts: denies suicidal thoughts Homicidal Thoughts: denies homicidal thoughts Denies auditory hallucinations, but at times appears preoccupied by internal stimuli Cognition: language grossly intact; + attention not intact Insight: + impaired insight Judgement: + impaired judgement Vital Signs (Past 24 Hours) Last Vital Signs Temp 36.6 C 05/02/19 06:48 Pulse 73 05/02/19 06:49 Resp 18 05/02/19 06:48 BP 144/74 H 05/02/19 06:49 Pulse Ox 96 02/24/19 08:10 Results & Data Current Inpatient Medications Current Inpatient Medications: Current Inpatient Medications Acetaminophen (Tylenol) 650 mg PO Q4H PRN PRN Reason: Headache or Minor Fever Stop: 05/23/19 08:14 Al Hydrox/Mg Hydrox/Simethicone (Maalox) 30 ml PO Q4H PRN PRN Reason: GI Upset Stop: 05/23/19 08:14 Benztropine Mesylate (Cogentin) 0.5 mg PO BID PRN PRN Reason: dystonia Stop: 05/23/19 08:14 Bismuth Subsalicylate (Kaopectate) 15 ml PO PRN PRN PRN Reason: Loose Stool Stop: 05/23/19 08:14 Clonidine HCl (Catapres) 0.1 mg PO HS MAG Stop: 05/23/19 21:59 Last Admin: 05/01/19 21:02 Dose: Not Given Documented by: Cyanocobalamin (Vitamin B-12) 500 mcg PO DAILY MAG Stop: 05/23/19 08:59 Last Admin: 05/02/19 08:51 Dose: 500 mcg Documented by: Hydroxyzine HCl (Vistaril) 25 mg PO Q4H PRN PRN Reason: Anxiety Stop: 05/23/19 08:14 Hydroxyzine HCl (Vistaril) 50 mg PO HSZ PRN PRN Reason: Insomnia Stop: 05/23/19 08:14 Magnesium Hydroxide (Milk Of Magnesia) 30 ml PO DAILY PRN PRN Reason: Heartburn Stop: 05/23/19 08:19 Magnesium Oxide (Mag-Ox) 400 mg PO DAILY MAG Stop: 05/23/19 08:59 Last Admin: 05/02/19 08:51 Dose: 400 mg Documented by: Miscellaneous (Remove Nicoderm Patch) 1 ea N/A HS MAG Stop: 05/23/19 21:59 Last Admin: 05/01/19 21:02 Dose: Not Given Documented by: Multivitamins (Multivitamin Tab) 1 tab PO DAILY MAG Stop: 05/23/19 08:59 Last Admin: 05/02/19 08:51 Dose: 1 tab Documented by: Nicotine (Nicoderm Cq) 14 mg TD QAM MAG Stop: 05/23/19 08:59 Last Admin: 05/02/19 08:54 Dose: Not Given Documented by: Olanzapine (Zyprexa) 10 mg IM HS PRN PRN Reason: Undecided Stop: 05/23/19 08:19 Pyridoxine HCl (Vitamin B-6) 100 mg PO DAILY MAG Stop: 05/23/19 08:59 Last Admin: 05/02/19 08:51 Dose: 100 mg Documented by: Sodium Chloride ([place] Nasal) 1 - 2 sprays NA PRN PRN PRN Reason: Nasal Dryness/Congestion Stop: 05/23/19 08:19 Ziprasidone (Geodon) 20 mg PO BIDM MAG Stop: 05/29/19 17:44 Last Admin: 05/02/19 08:51 Dose: 20 mg Documented by: Mental Health & Subst Abuse Tx Therapist Name of Therapist: Sammy Sorting Machine Attendant Name of Sorting Machine Attendant: Shruti Lopez Phone Number for Sorting Machine Attendant: Case Management Appointment Comment: [address], [place] [address] Post Discharge Appointments Primary Care Physician Name Of Family Doctor: Dr. Lopez Contact Information Discharge Discharge Address: [address] [place] [address], [place] [address] CPT Code CPT Code 63563 (1) Schizophrenia Schizophrenia type: paranoid schizophrenia Qualified Code(s): F20.0 - Paranoid schizophrenia (2) Hypertension Hypertension type: essential hypertension Qualified Code(s): I10 - Essential (primary) hypertension
[2019-05-02] MEDS: cloNIDine HCL 0.1 MG TAB PO SCH (21:17)
--- NOTE | 2019-05-03 07:10 | Psychiatric Progress Note ---
Date of Service May 03, 2019 Impression / Recommendations Impression Patient remains poorly engaged in treatment, refusing most groups. He briefly had a roommate, but was placed back in a private room due to disorganized behavior, after multiple episodes of going into other patient's rooms and staring at them, once wearing nothing but a towel. His shelter bed was relinquished due to ongoing psychosis and unwillingness to engage in treatment, and although he has been accepted at the [facility] since 04/02/2019, we still do not have a bed date. He has been refusing antipsychotic medications and had not taken anything over a 2 week period, but 04/29 agreed to a trial of ziprasidone, which he is tolerating well, and will increase the dose today. Given the chronicity and severity of his condition, it may take weeks to see benefit from medication. The plan is for the patient to be transferred for long-term psychiatric hospitalization, given his inability to cooperate with treatment, given his inability to attend his own physical needs without the availability of the full spectrum of psychiatric services at the inpatient level of care, and ongoing psychosis with auditory hallucinations and paranoia. (1) Schizophrenia: 02/25 - Continue home medication regimen - as refusing offerings of his antipsychotic, will likely require olanzapine IM (or alternative agent) over objection, given clear evidence of paranoia and delusional thought process - previously stabilized on this medication - Pt agreeable to taking all other medications, with exception of antipsychotic as mentioned above - Admitted to a locked inpatient behavioral health unit, on q15 minute safety checks - Encourage medication initiation/adjustments as indicated - Encourage participation in group and recreational therapies - Gather collateral information from outpatient providers and shelter staff - Suggest family meeting to involve outpatient supports in safety planning - Reschedule appropriate aftercare appointments 02/26 -Patient indicates willingness to sign a release for the [facility] shelter, will get collateral from their staff. -File for 303 involuntary commitment to be held tomorrow. -Recommend medications over objection, with an IM Zyprexa backup for refusal of oral medication. Involve outpatient treatment team to discuss ways to improve stability and compliance; consider long-acting injectable antipsychotic. -Order fasting labs for monitoring on an atypical antipsychotic once patient is more cooperative. 02/27 -The patient was retrained at his involuntary commitment hearing (303) this morning. -He has continuously and consistently refused psychiatric medications to date. However, today, when I explained that that a option that might become necessary in his case is medication over objection, and an intramuscular form, the patient said that he understood and that he would try medications that I prescribe. His initial preference would be olanzapine, but because olanzapine is not available in a long acting depot form, we would first like to try aripiprazole. He indicates that he is taken aripiprazole in the past and has been able to tolerate it, although he does not believe that it has been part icularly helpful. -A trial dose of aripiprazole 15 mg by mouth, as a one-time dose, has been ordered and he assessed for efficacy. 02/28 -Appears to be tolerating initiation of Abilify so far. Remains delusional, paranoid. May consider further titration tomorrow -Aricept discontinued at patient's request on 02/27/2019. The medication has not been demonstrated to be efficacious for cognitive impairment associated with long-standing schizophrenia however we should be vigilant for slowing of mentation following discontinuation. 03/01 Patient fixated and irrational regarding access to clothing item as above today. Hospital environment becoming incorporated and delusions. Consider possibility that the aripiprazole is contributing to activation. We will increase to 20 mg tomorrow and also start Risperdal 1 mg p.o. twice daily as as needed. 03/02 - Continue with aripiprazole at 20mg daily, consider need for further titration - if tolerating and effective, eventual plan will be for conversion to Abilify Maintena - Pt has not yet utilized risperidone 03/03 - Increase aripiprazole to 25mg (equivalent to 30mg pill) and change to liquid formulation to decrease risk of cheeking/nonadherence, as patient does not believe he needs medication and had been noncompliant prior to hospitalization. - Fasting glucose and lipid profile ordered for tomorrow for monitoring on an atypical antipsychotic. - Private room due to psychosis, agitation, and inappropriate disrobing/sexual behavior. - Meeting with [facility] and CRR staff when patient able to tolerate. 03/04 - Continue aripiprazole 25mg liquid (30mg pill equivalent) and continue to observe for improvement in thought process/content - consider conversion to Maintena if effective, versus trial of another agent if improvement remains limited - Fasting labs reviewed - all values WNL - Continue medically necessary private room - Request meeting with CRR staff, in order to obtain details about patient's proximity to baseline 03/05 -Patient refusing liquid aripiprazole, but agrees to take the pill: Ordered 30 mg daily. -Schedule meeting with his field nurse case manager, CRR and psych rehab staff. Consider involuntary outpatient commitment at the time of discharge. 03/06 -The patient has improved in that he is more reality based at this point. He continues to harbor fixed, systematized delusions, but is generally able to focus on reality based topics. -Although the patient tells me that he does not feel that aripiprazole has been effective, he is able to accept my opinion in the opinion of the staff that he has improved in response to aripiprazole. -The patient's main objection to aripiprazole oral solution is that he does not like the way it tastes, and within this context, he tells us that he is willing to accept Abilify Maintenaand requests that it be injected into his buttock. Abilify Maintena 300 mg IM ordered, and oral Abilify discontinued. We will resume oral Abilify if the patient subsequently changes his mind and refuses the injection. 03/07 resuming Abilify oral given his refusal of FARAH form of Abilify 03/08 is taking Abilify po form but refusing Abilify Maintena form. advise close monitoring for potential of checking given pt's tendency to not want to take medications. 03/09 -The patient is flatly refusing to take aripiprazole in the form of Abilify Maintena. He is also been hesitant to take oral Abilify, but has been doing so. -The patient's lack of cooperation is thought possibly to be related to an un-expressed desire to not be discharged back to the community. He told me toanita y that he left his meeting with his community providers after a few seconds because "just the side of them made me extremely anxious. My pulse elevated to 140." Later, he told me that he was still anxious about it and his pulse was "still around 130." The patient allowed me to take his pulse, and it was approximately 76. At that point he said, "did I say pulse? I meant systolic blood pressure." And when I pointed out that his systolic blood pressure of 130 is not considered to be a particular concern, he said "I mean diastolic." -Our hope had been that the patient would agree to accept a Depo form of medication. He was refusing Haldol Decanoate because of various side effects. Risperidone constant was ruled out as a first-line Depo medication because of the frequency of administration (the patient tends to get into power struggles over medications) and because he says that he is sensitive to "big needles." Invega would be an option, but currently the patient is being so uncooperative that our concern would be that he would cheek the oral tablets that we would have to give him first. Accordingly, the new strategy will be to discontinue Abilify, and resume olanzapine with olanzapine IM over objection if necessary. We will begin the olanzapine Zydis 20 mg at bedtime 03/10 -The patient took the prescribed dose of olanzapine Zydis 20 mg at bedtime last night. Today, he tells me that it "did not help at all." However, staff report that he has been somewhat more agreeable, more pleasant, and less paranoid today. -As he has with other providers, today he told me that I should have given him olanzapine 5 mg "to start", and I explained that he was already on olanzapine 20 mg when he came into the hospital and we know that he is able to tolerate that dose. He tells me that he did, in fact tolerate the dose and is not aware of any side effects, but, somewhat illogically, insisted that the dose was "too high for a starting dose." 03/11 - Continue current medication regimen at this time - olanzapine 20mg daily - Encourage participation in the milieu and in group programming as tolerated 03/12 -Continue current medication regimen. The patient's condition has not yet improved. -The patient does participate in select groups, but often tends to be disruptive. 03/13 -Today, the patient seems to be somewhat more cooperative and less frankly delusional. It was possible to engage in a mostly reality based conversation for 5 or 10 minutes at a time. Also, although he was unhappy with me when I refused to provide him with a dose of Valium for anxiety, he was able to remain pleasant and calm at this time, did not storm from the room." 03/14 and 03/15 -no change in medication will work on therapeutic alliance given patient is not participating 03/16 -304 involuntary commitment granted. -Patient remains completely uncooperative with treatment, refused his Zyprexa Zydis last evening, but then ultimately took it before he received the injection. I have a high suspicion for cheeking of antipsychotic medication, and we will continue to be vigilant with mouth checks, and work towards a long- acting injectable. 03/17 -Patient has been on Zyprexa 20 mg at bedtime for 1 week, with limited response. He is refusing to discuss other medication options. Per records, he has been prescribed up to 30 mg olanzapine in the past, so will increase his d ose to this previously tolerated dose, as it is 1 of the few medications he has been willing to take. Continue IM backup for refusal, and Zyprexa Zydis formulation to decrease risk of cheeking. He is not compliant with mouth checks, but have asked staff to try to observe him for 10 minutes after taking the Zydis to ensure he is not spitting it out before it dissolves. 03/18 -Continue Zyprexa Zydis 30 mg at bedtime with IM backup. Consider switch to a different medication (?oral paliperidone with IM backup) if irritability and agitation continues. He has tried virtually every atypical antipsychotic and reports none of them were effective (although some trials were short due to nonadherence) and has a history of dystonia on haloperidol. Clozapine would be a reasonable choice, but he has been unwilling to even discuss medication options. -Consider some component of cognitive decline which could be contributing to his worsening presentation and will need to be monitored and worked up further once he is more psychiatrically stable. -Refer to [facility] in the event that he does not improve and long-term inpatient treatment is needed. 03/19 - Proceed with [facility] referral. 03/20 - Continue current medication regimen; patient refused EKG and CXR yesterday - refused again today - Continue attempts to gather information to make a referral to [facility] 03/23 - Proceed with [facility] referral - patient has refused EKG and CXR for multiple attempts. We will send most recent tests available - Continue current medication regimen at this time 03/24 -Attempted to hold diversion meeting with his outpatient [facility], shelter director, and the [facility] MH/ID; patient refused to attend or participate in the meeting. 03/25 - 03/26 - Continue treatment plan as above - no change in patient's condition and he remains unwilling to participate meaningfully in treatment - Continue with [facility] referral 03/27 -The patient has been informed that the plan at this point is to transfer him to [facility] for long-term inpatient psychiatric treatment, given his refusal to adhere with treatment and his associated behaviors in the community when not adherent with psychiatric treatment. -The patient continues to refuse mouth checks after given dosages of Zyprexa Zydis, and there is some question regarding whether he is actually ingesting this medication. He also would not cooperate with laboratory testing. -There has been a question regarding the patient's cognitive functions, and prior to admission he had been taking Aricept. When he does cooperate with this, I have not seen evidence of any substantial cognitive impairment. He may have mild cognitive impairment, but does not fully cooperate with formal cognitive assessment. He easily recalls the names of his providers, the names of the medications he is taking, the names of the various infectious agents that he believes are causing some of his psychiatric symptoms, the names of certain chemicals that he believes will rid him of the reference to infections, and is able to discuss current events such as recent news items. His assertion that he wants to return to his apartment in the community seems belied by his steadfast refusal to cooperate with those interventions I would make it possible for him to return, and there is some suspicion that although the patient remains floridly psychotic he may also be intentionally sabotaging discharge. 03/28 - 03/30 -There is been no acid changer the past 2 weeks, and long-term inpatient treatment at the [facility] is indicated. 03/31 - Continue current medication regimen - Pt briefly verbalized willingness for FARAH, but was not agreeable to medication adjustments to allow for this to be possible - If he should change his mind; recommendation is for trial of Invega orally to establish tolerability, then consideration for Invega Sustenna - unwilling for this today 04/01 - 04/03 - Continue current medication regimen - Continues to refuse FARAH, will continue discussion daily as this is the reported preference of his CRR 04/04 -Questionable positive PPD measuring 13 mm but history of confinement places him at higher risk. Patient refused chest x-ray today but we will reapproach. No active symptoms of infection. Order for sputum culture and smear today for confirmation. 04/05 -PPD now appears negative. Would suggest follow through with sputum smear and culture for confirmation as previously ordered -Continue treatment plan as above 04/06 - PPD reportedly negative, patient unable to follow-up with sputum smear - t herefore discontinued - Continue medication regimen as above - unwilling to discuss conversion to an FARAH - Meeting today with representation from [facility] to discuss discharge planning 04/07 - Continue medication regimen as above - remains unwilling to discuss changes - Additional meeting with CRR and CM scheduled for next week - We have been regularly assessing patient's condition and appropriateness to go outside since his 30-day treatment plan review. As patient continues to be unwilling to participate in a meaningful conversation with providers regarding his condition, we continue to be unable to determine if he is appropriate to be taken off the unit - therefore will await ability to discuss the topic in a meaningful way prior to making this determination. Will continue regular evaluation. 04/08 - 04/12 - Continue current medication regimen, as patient unwilling to discuss changes - Attempted again to determine if appropriate to go outside, patient unwilling to participate in conversation despite being told the goal of allowing him to go outside - Meeting with CM and CRR director scheduled for 04/13 at 1030 04/13 - Continue Zyprexa 30mg daily - unwilling to engage in conversation to discuss changes - Remains unwilling to engage in conversation to determine if he is appropriate to go outside, he has been made aware this is a possibility for him - Meeting for attempted diversion resulted in decision to no longer hold patient's CRR bed, [facility] admission is supported based on little to no improvement since admission and limited willingness to engage in conversations regarding medication adjustments - We have been asked to attempt to get a QuantiFERON-TB Gold Plus test, despite negative PPD reading within acceptable timeframe - pt unwilling to engage in conversation to obtain consent, further indicating why long-term inpatient psychiatric hospitalization is necessary. Will continue to attempt to gain consent for this testing to be completed 04/15 -The patient is slightly more communicative today and that he does answer at least one question which was whether he would be in agreement if we offered him a drug holiday from olanzapine. His response was in the affirmative.. He also said "thank you." -The patient continues to appear suspicious and he clearly is angry at and unwilling to cooperate with staff. He is particularly bumptious with individuals who he sees as not fully trained and fully qualified. -The plan remains [facility]. Our hope remains that we will be able to divert the patient from the [facility], but the patient, as noted above, remains uncommunicative and resistant. Perhaps contributing to the patient's obvious anger and distress is the fact that he has learned this week that his residential program is unwilling to allow him to return and has stopped holding his bed for other individuals. 04/16 - Continue current treatment plan, which includes holiday from olanzapine as a rapport building attempt, and due to concerns that he is more irritable and resistant to treatment - which is obviously not beneficial for his overall condition. - Attempted to communicate with the patient today via written/printed text - will add addendum to this note if patient was willing to complete the sheet and respond to questions 04/21 -Patient remains uncooperative and unwilling to participate in interviews, but has been out of his room more and attending some groups. He remains unwilling to discuss treatment options, including antipsychotic medication. 04/22 - Patient remains unwilling for medications, but is interacting with peers appropriately and attending groups. Will try discontinuing private room and placing him with a roommate, is perhaps increased socialization will be therapeutic for him. 04/23 -no change, patient still unwilling for medications(other than marijuana and benzos) 04/24 -The patient remains angry, suspicious, and largely uncommunicative. He spoke briefly with the attending psychiatrist today in order to request privileges to go outdoors with staff, and was able to cooperate with a fresh air break, but subsequently was angry, bumptious, and willing to cooperate with assessments. 04/25 - Valium 5mg dose yesterday appeared to lead to some disinhibited verbally agitated behavior, with the Valium dose being discontinued following that one dose. Pt is fixated on Valium and on temazepam. refusal to take other medications with. Handling a roommate decently currently. Pt refusing to attend groups. Limited engagement with peers and staff occurring. no change to plan today 04/26 no change to plan today 04/27 -The patient cooperated with an interview today after several weeks of flatly refusing, sometimes rudely refusing to speak to providers. Today, the patient not voiced any delusional material and was able to specifically answer questions regarding perceptual disturbances. 04/28 -no change. 04/29 -start ziprasidone 20 mg twice daily with meals. Reviewed risks, benefits and common side effects including sedation and the need to take with food. 04/30 maintained ziprasidone at current dose today given pt's tendency to refuse medications mikey if notice any s/e, considering raising dose tomorrow 05/01 -Based on the patient's behavior today there seems to be no evidence that the patient is enjoying any particular benefit from ziprasidone. To the contrary, he may have become more bumptious and withdrawn. My recommendation is that we continue to observe him on ziprasidone 20 mg twice a day before in creasing his dose further, possibly over the weekend. 05/02 -continue current medication and consider dose increase next week. It is likely that it will take weeks to show benefit from antipsychotic medication given the severity and chronicity of his symptoms, and his history of treatment resistance. He would be a good candidate for clozapine, but has never been willing to consider it. 05/03 -increase ziprasidone to 40 mg twice daily with food. Continue to encourage group attendance. (2) Substance abuse: 02/25 - Pt has reported history of substance abuse, and recommendation has consistently been for avoidance of substances with significant abuse potential. - PDMP queried - most recent prescriptions below - lorazepam 0.5mg #60 tabs for 30 day supply - Dr. Alves - filled 02/12/2019 - alprazolam 0.5mg #90 tabs for 30 day supply - Dr. Lopez - filled 01/16/2019 - temazepam 30mg #30 caps for 30 day supply - Dr. Lopez - filled 01/16/2019 - Will continue lorazepam 0.5mg BID prn on admission, as only medication that is seemingly active - toxicology screen is negative for benzodiazepines, which questions if he has been taking the medication appropriately - Ideally will taper and discontinue the lorazepam, as recommendation remains that substances with abuse potential be avoided 02/26 -The patient's outpatient providers, during a meeting this morning, report that the patient tends to successfully convince physicians to prescribe benzodiazepines for him and that, in the past, he has abused him to the degree that he is practically obtunded. 02/27 -A repeat check of the PDMP reveals that the patient is consistently being prescribed lorazepam 0.5 mg twice daily (number 60/month) by a . Brent Alves. He is also being prescribed alprazolam 0.[address] mg [address] Jeff Lopez, with the most recent previous prescription of alprazolam being on 01/16/[address] Lopez also prescribed temazepam 30 mg capsules #30 on 01/16/2019. According to his residential providers, no temazepam capsules were found among the patient's belongings. His most recent prescription for lorazepam 0.5 mg tablets was filled on 02/12/2019. 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 In the past, he reportedly has used clonazepam and temazepam. -I advised the patient that because of his history of misuse of benzodiazepines we would not be prescribing benzodiazepines during his hospital stay. An as needed order for lorazepam has not been used during hospital stay, and I discontinued the order today. 03/02 - Will need to coordinate care with his PCP and outpatient psychiatrist prior to discharge regarding the above. 03/04 - Charge nurse spoke with the above offices regarding concern for continued benzodiazepine prescriptions - Records will be faxed to their offices on discharge, as all benzodiazepines were discontinued during this hospitalization 03/06 -The patient did not request benzodiazepines and did not complain of anxiety today. I suggested to him that perhaps Abilify is also helping with anxiety in his case, and he responded by saying "perhaps." 03/09 -Today, the patient is insisting that what he needs is "benzodiazepines," and explains that the reason he "needs" benzodiazepines is that he has "benzodiazepine receptors," and that he is the only medications that work. He is unable to process warnings about the risks of benzodiazepines in the elderly, including increased risk of falls and mortality. Clearly, the patient is seeking benzodiazepines and has no insight into the associated risks. He also insists that he has never had trouble with benzodiazepines in the past, although there is well-documented of this. 03/10 -Today, the patient repeated his insistence that he needs benzodiazepines and that benzodiazepines are the only medications that work because he has "ludmila zodiazepine receptors." After being told that everyone has central nervous system receptors to which benzodiazepines may attach, he replied, "That may be, but some of people need to have benzodiazepines forearm benzodiazepine receptors. 03/12 -Continues to request Benzodiazepines. 03/13 -Requests Valium for his "benzodiazepines receptors." 03/27 -Refuses to cooperate with assessment today, but has recently told staff that he needs "either Valium or Ativan." -The patient apparently has no working insight into his history of abuse of prescription medications (benzodiazepines). 04/15 -The patient has not reference to request for benzodiazepines recently. However, the context is that he has not communicated much of anything directly, a other than the occasional need for self-care items. 04/24 -Today, the patient repeats his request for benzodiazepines, and insists that he is "supposed" to be taking diazepam 10 mg 3 times a day and temazepam for sleep every night. 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 Unfortunately, the exact opposite seems to have occurred. Not only was the patient was uncooperative subsequent to a dose of Valium, he seems to have been disinhibited by it and shouting "get out" or "get away" several times when approached by staff 04/25 - pt focused on seeking temazepam, or Valium 04/27 -The patient does have a history of substance dependence. However, the current plan and expected disposition is for the patient to be transferred to an extended care inpatient psychiatric unit where abuse of prescribed medications is unlikely to occur. Today, the patient calmly requests temazepam and says that he has tried a number of different sleeping pills, but "that is the one that works." The patient is also able to clearly say that he understands that temazepam is physically habituating that there are associated risks associated with temazepam including, but not limited to, a risk of falls, accidents, confus ion, and depression. He tells us that at prescribed dosages he has not had any of these problems in the past. -Today, I agreed to a trial of temazepam 15 mg at bedtime, a dose that the patient says has been effective in the past. 04/30 close monitoring of temazepam given above, so far not taken 05/01 -After persistently insisting that he had to have temazepam in order to sleep and that nursing staff reports that he is sleeping through the night are wrong because he tends to rest with his eyes closed, the patient has not ask for temazepam and has not been given temazepam since it was ordered a week ago. The patient declined to explain why he has not ask for it, and refuses to answer questions today as to whether he is sleeping well without. In fact, when asked to explain why he had not taken any after insisting on having a prescribed, he shouted "get the hell out!!." Perhaps the patient has forgotten that it was ordered, but he seemed to remember the day after it was ordered and ask for not asked for it since. Our thought is that he may have somehow incorporated the order for temazepam into his delusional when belief system, based on his rage when asked to explain why he hasn't asked for it. (3) Hypertension: 02/25 - Continue home dose of clonidine 0.1mg qHS 03/01 Watch mildly elevated blood pressures as patient has been refusing clonidine 03/03 - BP normal past two days, and low today 03/10 -The patient's blood pressure today was 136/73. His pulse was 71 03/14 - elevated BP it is not urgent but will need monitored. 03/15 - BP WNL /8 - BP continues to be WNL 04/02 - BP remains within normal limits; continue daily vitals per standard admission order set - Will consider acute phase of this problem resolved at this time Risk Factors Assessment Male: Yes : Yes Do You Have Access To A Gun?: No Health Problems: Yes Mental Health Diagnoses: Yes Substance Use Disorders: Yes Protective Factors Assessment Restorationism Beliefs: No : No Responsible for Young Children: No Employed: No Stable Relationships: No Supportive Family: No Good Rapport with Provider: No Absence of Any Risk Factors Above: No Interval History Identifying Information SCOTT ROBERTO is a 73-year-old M who currently lives at a [facility] in [place], has a history of schizophrenia, and is known to our unit from several previous admissions, most recently in 09/2016. He was admitted on 02/24/19 16:40 on a 302 involuntary commitment for exacerbation of schizophrenia and heightened paranoia resulting in belief he needed to hide in a dumpster to seek refuge from impending bombings. He was found by [facility] staff and brought to the ED by police, and is on a 304 involuntary commitment as of 03/16/19. He has been referred to [facility] for skilled nursing treatment. Chief Complaint "Okay". Review of Systems Sleep Information Total Hours of Sleep: 8.5 Sleep Comments: awake at 0425-came out to the kitchen to eat cereal with juice snacks. Meal Information Percent Meal Consumed - Breakfast: 100 Percent Meal Consumed - Lunch: 100 Percent Meal Consumed - Dinner: 100 Nutrition Comment: per meal record Subjective Subjective Patient was seen & assessed and interval progress reviewed with nursing and social work. Staff report he continues to isolate in his room, refused groups, but is taking ziprasidone as scheduled and coming out for meals. He does not spontaneously interact with staff or peers. He spent all day sitting on his bed staring out the window, and told staff that he was too busy to go to group. On my assessment, he was seen in his room, and appeared on edge, jumping up when I knocked on the door, and rushing over, preventing me from entering his room. He did consent to talk while standing in the doorway. He continues to say his mood is "fine," and that he is "busy" in his room, although he has been observed sitting on the bed staring out the window for most of the last 2 days. He denies any side effects to the ziprasidone and is willing to titrate his dose. When asked about auditory hallucinations, he pauses before denying them. He cannot identify goals of treatment, indicating that "nothing will work" for his schizophrenia. He is unwilling to consider going to groups and trying to interact more with others. Physical Exam Psychiatric Orientation: alert and + guarded Apperance: appropriately dressed (Wearing the same outfit since admission), appropriately groomed and appeared stated age Eye Contact: good eye contact Motor Behavior: steady gait and station and no abnormal motor movements Speech is minimal, normal volume and tone Affect: + blunted affect (With an irritable edge); + mood not congruent with affect "Fine." Thought Process: goal directed thought process Paucity of thought content, cannot explain discrepancies in his symptom reports. Thought Content: + cognitive distortions and + hopelessness Suicidal Thoughts: denies suicidal thoughts Homicidal Thoughts: denies homicidal thoughts Hallucinations: no auditory hallucinations But appears to be responding to auditory hallucinations, distracted and preoccupied by unseen stimuli Cognition: attention grossly intact and language grossly intact Insight: + impaired insight Judgement: + impaired judgement Vital Signs (Past 24 Hours) Last Vital Signs Temp 36.9 C 05/03/19 06:38 Pulse 75 05/03/19 06:38 Resp 18 05/03/19 06:38 BP 115/68 05/03/19 06:39 Pulse Ox 96 02/24/19 08:10 Results & Data Current Inpatient Medications Current Inpatient Medications: Current Inpatient Medications Acetaminophen (Tylenol) 650 mg PO Q4H PRN PRN Reason: Headache or Minor Fever Stop: 05/23/19 08:14 Al Hydrox/Mg Hydrox/Simethicone (Maalox) 30 ml PO Q4H PRN PRN Reason: GI Upset Stop: 05/23/19 08:14 Benztropine Mesylate (Cogentin) 0.5 mg PO BID PRN PRN Reason: dystonia Stop: 05/23/19 08:14 Bismuth Subsalicylate (Kaopectate) 15 ml PO PRN PRN PRN Reason: Loose Stool Stop: 05/23/19 08:14 Clonidine HCl (Catapres) 0.1 mg PO HS MAG Stop: 05/23/19 21:59 Last Admin: 05/02/19 21:17 Dose: Not Given Documented by: Cyanocobalamin (Vitamin B-12) 500 mcg PO DAILY MAG Stop: 05/23/19 08:59 Last Admin: 05/02/19 08:51 Dose: 500 mcg Documented by: Hydroxyzine HCl (Vistaril) 25 mg PO Q4H PRN PRN Reason: Anxiety Stop: 05/23/19 08:14 Hydroxyzine HCl (Vistaril) 50 mg PO HSZ PRN PRN Reason: Insomnia Stop: 05/23/19 08:14 Magnesium Hydroxide (Milk Of Magnesia) 30 ml PO DAILY PRN PRN Reason: Heartburn Stop: 05/23/19 08:19 Magnesium Oxide (Mag-Ox) 400 mg PO DAILY MAG Stop: 05/23/19 08:59 Last Admin: 05/02/19 08:51 Dose: 400 mg Documented by: Miscellaneous (Remove Nicoderm Patch) 1 ea N/A HS MAG Stop: 05/23/19 21:59 Last Admin: 05/02/19 21:17 Dose: Not Given Documented by: Multivitamins (Multivitamin Tab) 1 tab PO DAILY MAG Stop: 05/23/19 08:59 Last Admin: 05/02/19 08:51 Dose: 1 tab Documented by: Nicotine (Nicoderm Cq) 14 mg TD QAM MAG Stop: 05/23/19 08:59 Last Admin: 05/02/19 08:54 Dose: Not Given Documented by: Olanzapine (Zyprexa) 10 mg IM HS PRN PRN Reason: Undecided Stop: 05/23/19 08:19 Pyridoxine HCl (Vitamin B-6) 100 mg PO DAILY MAG Stop: 05/23/19 08:59 Last Admin: 05/02/19 08:51 Dose: 100 mg Documented by: Sodium Chloride ([place] Nasal) 1 - 2 sprays NA PRN PRN PRN Reason: Nasal Dryness/Congestion Stop: 05/23/19 08:19 Ziprasidone (Geodon) 20 mg PO BIDM MAG Stop: 05/29/19 17:44 Last Admin: 05/02/19 17:25 Dose: 20 mg Documented by: Mental Health & Subst Abuse Tx Therapist Name of Therapist: [facility]my Endoscope Technician Name of Endoscope Technician: Shruti Lopez Phone Number for Endoscope Technician: Case Management Appointment Comment: [phone], [place] [address] Post Discharge Appointments Primary Care Physician Name Of Family Doctor: Dr. Lopez Contact Information Discharge Discharge Address: [address] [place] [id number] CPT Code CPT Code 37308 (1) Schizophrenia Schizophrenia type: paranoid schizophrenia Qualified Code(s): F20.0 - Paranoid schizophrenia (2) Hypertension Hypertension type: essential hypertension Qualified Code(s): I10 - Essential (primary) hypertension
[2019-05-03] MEDS: ZIPRASIDONE HCL 20 MG CAP PO SCH ×2 (08:32→17:31)
[2019-05-03] MEDS: CYANOCOBALAMIN 500 MCG TABLET (VITAMIN B-12) PO SCH (08:33)
[2019-05-03] MEDS: MULTIVITAMIN TAB PO SCH (08:33)
[2019-05-03] MEDS: PYRIDOXINE HCL 50 MG TAB PO SCH (08:33)
[2019-05-03] MEDS: MAGNESIUM OXIDE 400 MG TAB PO SCH (08:33)
[2019-05-03] MEDS: NICOTINE 14 MG/24 HR PATCH TD SCH (08:34)
[2019-05-03] MEDS: cloNIDine HCL 0.1 MG TAB PO SCH (21:19)
[2019-05-04] MEDS: ZIPRASIDONE HCL 20 MG CAP PO SCH ×2 (08:30→17:32)
[2019-05-04] MEDS: CYANOCOBALAMIN 500 MCG TABLET (VITAMIN B-12) PO SCH (08:30)
[2019-05-04] MEDS: PYRIDOXINE HCL 50 MG TAB PO SCH (08:30)
[2019-05-04] MEDS: MULTIVITAMIN TAB PO SCH (08:30)
[2019-05-04] MEDS: MAGNESIUM OXIDE 400 MG TAB PO SCH (08:30)
[2019-05-04] MEDS: NICOTINE 14 MG/24 HR PATCH TD SCH (08:31)
--- NOTE | 2019-05-04 08:54 | Psychiatric Progress Note ---
Date of Service May 04, 2019 Impression / Recommendations Impression Patient remains poorly engaged in treatment, refusing most groups. He briefly had a roommate, but was placed back in a private room due to disorganized behavior, after multiple episodes of going into other patient's rooms and staring at them, once wearing nothing but a towel. His intermediate bed was relinquished due to ongoing psychosis and unwillingness to engage in treatment, and although he has been accepted at the [facility] since 04/02/2019, we still do not have a bed date. He has been refusing antipsychotic medications and had not taken anything over a 2 week period, but 04/29 agreed to a trial of ziprasidone, which he is tolerating well, and thus far has been titrated to a dose of 40mg BID with food. Given the chronicity and severity of his condition, it may take weeks to see benefit from medication. The plan is for the patient to be transferred for long-term psychiatric hospitalization, given his inability to cooperate with treatment, given his inability to attend his own physical ut eds without the availability of the full spectrum of psychiatric services at the inpatient level of care, and ongoing psychosis with auditory hallucinations and paranoia. (1) Schizophrenia: 02/25 - Continue home medication regimen - as refusing offerings of his antipsychotic, will likely require olanzapine IM (or alternative agent) over objection, given clear evidence of paranoia and delusional thought process - previously stabilized on this medication - Pt agreeable to taking all other medications, with exception of antipsychotic as mentioned above - Admitted to a locked inpatient behavioral health unit, on q15 minute safety checks - Encourage medication initiation/adjustments as indicated - Encourage participation in group and recreational therapies - Gather collateral information from outpatient providers and intermediate staff - Suggest family meeting to involve outpatient supports in safety planning - Reschedule appropriate aftercare appointments 02/26 -Patient indicates willingness to sign a release for the [facility] intermediate, will get collateral from their staff. -File for 303 involuntary commitment to be held tomorrow. -Recommend medications over objection, with an IM Zyprexa backup for refusal of oral medication. Involve outpatient treatment team to discuss ways to improve stability and compliance; consider long-acting injectable antipsychotic. -Order fasting labs for monitoring on an atypical antipsychotic once patient is more cooperative. 02/27 -The patient was retrained at his involuntary commitment hearing (303) this morning. -He has continuously and consistently refused psychiatric medications to date. However, today, when I explained that that a option that might become necessary in his case is medication over objection, and an intramuscular form, the patient said that he understood and that he would try medications that I prescribe. His initial preference would be olanzapine, but because olanzapine is not available in a long acting depot form, we would first like to try aripiprazole. He indicates that he is taken aripiprazole in the past and has been able to tolerate it, although he does not believe that it has been particularly helpful. -A trial dose of aripiprazole 15 mg by mouth, as a one-time dose, has been ordered and he assessed for efficacy. 02/28 -Appears to be tolerating initiation of Abilify so far. Remains delusional, paranoid. May consider further titration tomorrow -Aricept discontinued at patient's request on 02/27/2019. The medication has not been demonstrated to be efficacious for cognitive impairment associated with long-standing schizophrenia however we should be vigilant for slowing of mentation following discontinuation. 03/01 Patient fixated and irrational regarding access to clothing item as above today. Hospital environment becoming incorporated and delusions. Consider possibility that the aripiprazole is contributing to activation. We will i ncrease to 20 mg tomorrow and also start Risperdal 1 mg p.o. twice daily as as needed. 03/02 - Continue with aripiprazole at 20mg daily, consider need for further titration - if tolerating and effective, eventual plan will be for conversion to Abilify Maintena - Pt has not yet utilized risperidone 03/03 - Increase aripiprazole to 25mg (equivalent to 30mg pill) and change to liquid formulation to decrease risk of cheeking/nonadherence, as patient does not believe he needs medication and had been noncompliant prior to hospitalization. - Fasting glucose and lipid profile ordered for tomorrow for monitoring on an atypical antipsychotic. - Private room due to psychosis, agitation, and inappropriate disrobing/sexual behavior. - Meeting with BCM and CRR staff when patient able to tolerate. 03/04 - Continue aripiprazole 25mg liquid (30mg pill equivalent) and continue to observe for improvement in thought process/content - consider conversion to Maintena if effective, versus trial of another agent if improvement remains limited - Fasting labs reviewed - all values WNL - Continue medically necessary private room - Request meeting with CRR staff, in order to obtain details about patient's proximity to baseline 03/05 -Patient refusing liquid aripiprazole, but agrees to take the pill: Ordered 30 mg daily. -Schedule meeting with his pillowcase cutter, CRR and psych rehab staff. Consider involuntary outpatient commitment at the time of discharge. 03/06 -The patient has improved in that he is more reality based at this point. He continues to harbor fixed, systematized delusions, but is generally able to focus on reality based topics. -Although the patient tells me that he does not feel that aripiprazole has been effective, he is able to accept my opinion in the opinion of the staff that he has improved in response to aripiprazole. -The patient's main objection to aripiprazole oral solution is that he does not like the way it tastes, and within this context, he tells us that he is willing to accept Abilify Maintenaand requests that it be injected into his buttock. Abilify Maintena 300 mg IM ordered, and oral Abilify discontinued. We will resume oral Abilify if the patient subsequently changes his mind and refuses the injection. 03/07 resuming Abilify oral given his refusal of FARAH form of Abilify 03/08 is taking Abilify po form but refusing Abilify Maintena form. advise close monitoring for potential of checking given pt's tendency to not want to take medications. 03/09 -The patient is flatly refusing to take aripiprazole in the form of Abilify Maintena. He is also been hesitant to take oral Abilify, but has been doing so. -The patient's lack of cooperation is thought possibly to be related to an un-expressed desire to not be discharged back to the community. He told me today that he left his meeting with his community providers after a few seconds because "just the side of them made me extremely anxious. My pulse elevated to 140." Later, he told me that he was still anxious about it and his pulse was "still around 130." The patient allowed me to take his pulse, and it was approximately 76. At that point he said, "did I say pulse? I meant systolic blood pressure." And when I pointed out that his systolic blood pressure of 130 is not considered to be a particular concern, he said "I mean diastolic." -Our hope had been that the patient would agree to accept a Depo form of medication. He was refusing Haldol Decanoate because of various side effects. Risperidone constant was ruled out as a first-line Depo medication because of the frequency of administration (the patient tends to get into power struggles over medications) and because he says that he is sensitive to "big needles." Invega would be an option, but currently the patient is being so uncooperative that our concern would be that he would cheek the oral tablets that we would have to give him first. Accordingly, the new strategy will be to discontinue Abilify, and resume olanzapine with olanzapine IM over objection if necessary. We will begin the olanzapine Zydis 20 mg at bedtime 03/10 -The patient took the prescribed dose of olanzapine Zydis 20 mg at bedtime last night. Today, he tells me that it "did not help at all." However, staff report that he has been somewhat more agreeable, more pleasant, and less paranoid today. -As he has with other providers, today he told me that I should have given him olanzapine 5 mg "to start", and I explained that he was already on olanzapine 20 mg when he came into the hospital and we know that he is able to tolerate that dose. He tells me that he did, in fact tolerate the dose and is not aware of any side effects, but, somewhat illogically, insisted that the dose was "too high for a starting dose." 03/11 - Continue current medication regimen at this time - olanzapine 20mg daily - Encourage participation in the milieu and in group programming as tolerated 03/12 -Continue current medication regimen. The patient's condition has not yet improved. -The patient does participate in select groups, but often tends to be disruptive. 03/13 -Today, the patient seems to be somewhat more cooperative and less frankly delusional. It was possible to engage in a mostly reality based conversation for 5 or 10 minutes at a time. Also, although he was unhappy with me when I refused to provide him with a dose of Valium for anxiety, he was able to remain pleasant and calm at this time, did not storm from the room." 03/14 and 03/15 -no change in medication will work on therapeutic alliance given patient is not participating 03/16 -304 involuntary commitment granted. -Patient remains completely uncooperative with treatment, refused his Zyprexa Zydis last evening, but then ultimately took it before he received the injection. I have a high suspicion for cheeking of antipsychotic medication, and we will continue to be vigilant with mouth checks, and work towards a long- acting injectable. 03/17 -Patient has been on Zyprexa 20 mg at bedtime for 1 week, with limited response. He is refusing to discuss other medication options. Per records, he has been prescribed up to 30 mg olanzapine in the past, so will increase his dose to this previously tolerated dose, as it is 1 of the few medications he has been willing to take. Continue IM backup for refusal, and Zyprexa Zydis formulation to decrease risk of cheeking. He is not compliant with mouth checks, but have asked staff to try to observe him for 10 minutes after taking the Zydis to ensure he is not spitting it out before it dissolves. 03/18 -Continue Zyprexa Zydis 30 mg at bedtime with IM backup. Consider switch to a different medication (?oral paliperidone with IM backup) if irritability and agitation continues. He has tried virtually every atypical antipsychotic and reports none of them were effective (although some trials were short due to nonadherence) and has a history of dystonia on haloperidol. Clozapine would be a reasonable choice, but he has been unwilling to even discuss medication options. -Consider some component of cognitive decline which could be contributing to his worsening presentation and will need to be monitored and worked up further once he is more psychiatrically stable. -Refer to [facility] in the event that he does not improve and long-term inpatient treatment is needed. 03/19 - Proceed with [facility] referral. 03/20 - Continue current medication regimen; patient refused EKG and CXR yesterday - refused again today - Continue attempts to gather information to make a referral to [facility] 03/23 - Proceed with [facility] referral - patient has refused EKG and CXR for multiple attempts. We will send most recent tests available - Continue current medication regimen at this time 03/24 -Attempted to hold diversion meeting with his outpatient [facility], intermediate director, and the [facility] MH/ID; patient refused to attend or participate in the meeting. 03/25 - 03/26 - Continue treatment plan as above - no change in patient's condition and he remains unwilling to participate meaningfully in treatment - Continue with [facility] referral 03/27 -The patient has been informed that the plan at this point is to transfer him to [facility] for long-term inpatient psychiatric treatment, given his refusal to adhere with treatment and his associated behaviors in the community when not adherent with psychiatric treatment. -The patient continues to refuse mouth checks after given dosages of Zyprexa Zydis, and there is some question regarding whether he is actually ingesting this medication. He also would not cooperate with laboratory testing. -There has been a question regarding the patient's cognitive functions, and prior to admission he had been taking Aricept. When he does cooperate with this, I have not seen evidence of any substantial cognitive impairment. He may have mild cognitive impairment, but does not fully cooperate with formal cognitive assessment. He easily recalls the names of his providers, the names of the medications he is taking, the names of the various infectious agents that he believes are causing some of his psychiatric symptoms, the names of certain chemicals that he believes will rid him of the reference to infections, and is able to discuss current events such as recent news items. His assertion that he wants to return to his apartment in the community seems belied by his steadfast refusal to cooperate with those interventions I would make it possible for him to return, and there is some suspicion that although the patient remains floridly psychotic he may also be intentionally sabotaging discharge. 03/28 - 03/30 -There is been no change control manager the past 2 weeks, and long-term inpatient treatment at the [facility] is indicated. 03/31 - Continue current medication regimen - Pt briefly verbalized willingness for FARAH, but was not agreeable to medication adjustments to allow for this to be possible - If he should change his mind; recommendation is for trial of Invega orally to establish tolerability, then consideration for Invega Sustenna - unwilling for this today 04/01 - 04/03 - Continue current medication regimen - Continues to refuse FARAH, will continue discussion daily as this is the reported preference of his CRR 04/04 -Questionable positive PPD measuring 13 mm but history of confinement places him at higher risk. Patient refused chest x-ray today but we will reapproach. No active symptoms of infection. Order for sputum culture and smear today for confirmation. 04/05 -PPD now appears negative. Would suggest follow through with sputum smear and culture for confirmation as previously ordered -Continue treatment plan as above 04/06 - PPD reportedly negative, patient unable to follow-up with sputum smear - therefore discontinued - Continue medication regimen as above - unwilling to discuss conversion to an FARAH - Meeting today with representation from [facility] to discuss discharge planning 04/07 - Continue medication regimen as above - remains unwilling to discuss changes - Additional meeting with CRR and CM scheduled for next week - We have been regularly assessing patient's condition and appropriateness to go outside since his 30-day treatment plan review. As patient continues to be unwilling to participate in a meaningful conversation with providers regarding his condition, we continue to be unable to determine if he is appropriate to be taken off the unit - therefore will await ability to discuss the topic in a meaningful way prior to making this determination. Will continue regular evaluation. 04/08 - 04/12 - Continue current medication regimen, as patient unwilling to discuss changes - Attempted again to determine if appropriate to go outside, patient unwilling to participate in conversation despite being told the goal of allowing him to go outside - Meeting with CM and CRR director scheduled for 04/13 at 1030 04/13 - Continue Zyprexa 30mg daily - unwilling to engage in conversation to discuss changes - Remains unwilling to engage in conversation to determine if he is appropriate to go outside, he has been made aware this is a possibility for him - Meeting for attempted diversion resulted in decision to no longer hold patient's CRR bed, [facility] admission is supported based on little to no improvement since admission and limited willingness to engage in conversations regarding medication adjustments - We have been asked to attempt to get a QuantiFERON-TB Gold Plus test, despite negative PPD reading within acceptable timeframe - pt unwilling to engage in conversation to obtain consent, further indicating why long-term inpatient psychiatric hospitalization is necessary. Will continue to attempt to gain consent for this testing to be completed 04/15 -The patient is slightly more communicative today and that he does answer at least one question which was whether he would be in agreement if we offered him a drug holiday from olanzapine. His response was in the affirmative.. He also said "thank you." -The patient continues to appear suspicious and he clearly is angry at and unwilling to cooperate with staff. He is particularly bumptious with individuals who he sees as not fully trained and fully qualified. -The plan remains transfer to the [facility] for long-term psychiatric care. Our hope remains that we will be able to divert the patient from the [facility], but the patient, as noted above, remains uncommunicative and resistant. Perhaps contributing to the patient's obvious anger and distress is the fact that he has learned this week that his residential program is unwilling to allow him to return and has stopped holding his bed for other individuals. 04/16 - Continue current treatment plan, which includes holiday from olanzapine as a rapport building attempt, and due to concerns that he is more irritable and resistant to treatment - which is obviously not beneficial for his overall condition. - Attempted to communicate with the patient today via written/printed text - will add addendum to this note if patient was willing to complete the sheet and respond to questions 04/21 -Patient remains uncooperative and unwilling to participate in interviews, but has been out of his room more and attending some groups. He remains unwilling to discuss treatment options, including antipsychotic medication. 04/22 - Patient remains unwilling for medications, but is interacting with peers appropriately and attending groups. Will try discontinuing private room and placing him with a roommate, is perhaps increased socialization will be therapeutic for him. 04/23 -no change, patient still unwilling for medications(other than marijuana and benzos) 04/24 -The patient remains angry, suspicious, and largely uncommunicative. He spoke briefly with the attending psychiatrist today in order to request privileges to go outdoors with staff, and was able to cooperate with a fresh air break, but subsequently was angry, bumptious, and willing to cooperate with assessments. 04/25 - Valium 5mg dose yesterday appeared to lead to some disinhibited verbally agitated behavior, with the Valium dose being discontinued following that one dose. Pt is fixated on Valium and on temazepam. refusal to take other medications with. Handling a roommate decently currently. Pt refusing to attend groups. Limited engagement with peers and staff occurring. no change to plan today 04/26 no change to plan today 04/27 -The patient cooperated with an interview today after several weeks of fla tly refusing, sometimes rudely refusing to speak to providers. Today, the patient not voiced any delusional material and was able to specifically answer questions regarding perceptual disturbances. 04/28 -no change. 04/29 -start ziprasidone 20 mg twice daily with meals. Reviewed risks, benefits and common side effects including sedation and the need to take with food. 04/30 maintained ziprasidone at current dose today given pt's tendency to refuse medications mikey if notice any s/e, considering raising dose tomorrow 05/01 -Based on the patient's behavior today there seems to be no evidence that the patient is enjoying any particular benefit from ziprasidone. To the contrary, he may have become more bumptious and withdrawn. My recommendation is that we continue to observe him on ziprasidone 20 mg twice a day before increasing his dose further, possibly over the weekend. 05/02 -continue current medication and consider dose increase next week. It is likely that it will take weeks to show benefit from antipsychotic medication given the severity and chronicity of his symptoms, and his history of treatment resistance. He would be a good candidate for clozapine, but has never been harman ling to consider it. 05/03 -increase ziprasidone to 40 mg twice daily with food. Continue to encourage group attendance. 05/04 - Continue recently increased dose of ziprasidone 40mg BID with food (2) Substance abuse: 02/25 - Pt has reported history of substance abuse, and recommendation has consistently been for avoidance of substances with significant abuse potential. - PDMP queried - most recent prescriptions below - lorazepam 0.5mg #60 tabs for 30 day supply - Dr. Alves - filled 02/12/2019 - alprazolam 0.5mg #90 tabs for 30 day supply - Dr. Lopez - filled 01/16/2019 - temazepam 30mg #30 caps for 30 day supply - Dr. Lopez - filled 01/16/2019 - Will continue lorazepam 0.5mg BID prn on admission, as only medication that is seemingly active - toxicology screen is negative for benzodiazepines, which questions if he has been taking the medication appropriately - Ideally will taper and discontinue the lorazepam, as recommendation remains that substances with abuse potential be avoided 02/26 -The patient's outpatient providers, during a meeting this morning, report that the patient tends to successfully convince physicians to prescribe benzodiazepines for him and that, in the past, he has abused him to the degree that he is practically obtunded. 02/27 -A repeat check of the PDMP reveals that the patient is consistently being prescribed lorazepam 0.5 mg twice daily (number 60/month) by a Dr. Brent Alves. He is also being prescribed alprazolam 0.[address] mg [address] Jeff Lopez, with the most recent previous prescription of alprazolam being on 01/16/[address] Lopez also prescribed temazepam 30 mg capsules #30 on 01/16/2019. According to his residential providers, no temazepam capsules were found among the patient's belongings. His most recent prescription for lorazepam 0.5 mg tablets was filled on 02/12/2019. It seems clear that this patient is [facility], even within the context of his history of benzodiazepine abuse. In the past, he reportedly has used clonazepam and temazepam. -I advised the patient that because of his history of misuse of benzodiazepines we would not be prescribing benzodiazepines during his hospital stay. An as needed order for lorazepam has not been used during hospital stay, and I discontinued the order today. 03/02 - Will need to coordinate care with his PCP and outpatient psychiatrist prior to discharge regarding the above. 03/04 - Charge nurse spoke with the above offices regarding concern for continued b enzodiazepine prescriptions - Records will be faxed to their offices on discharge, as all benzodiazepines were discontinued during this hospitalization 03/06 -The patient did not request benzodiazepines and did not complain of anxiety today. I suggested to him that perhaps Abilify is also helping with anxiety in his case, and he responded by saying "perhaps." 03/09 -Today, the patient is insisting that what he needs is "benzodiazepines," and explains that the reason he "needs" benzodiazepines is that he has "benzodiazepine receptors," and that he is the only medications that work. He is unable to process warnings about the risks of benzodiazepines in the elderly, including increased risk of falls and mortality. Clearly, the patient is seeking benzodiazepines and has no insight into the associated risks. He also insists that he has never had trouble with benzodiazepines in the past, although there is well-documented of this. 03/10 -Today, the patient repeated his insistence that he needs benzodiazepines and that benzodiazepines are the only medications that work because he has "benzodiazepine receptors." After being told that everyone has central nervous system receptors to which benzodiazepines may attach, he replied, "That may be, but some of people need to have benzodiazepines forearm benzodiazepine receptors. 03/12 -Continues to request Benzodiazepines. 03/13 -Requests Valium for his "benzodiazepines receptors." 03/27 -Refuses to cooperate with assessment today, but has recently told staff that he needs "either Valium or Ativan." -The patient apparently has no working insight into his history of abuse of prescription medications (benzodiazepines). 04/15 -The patient has not reference to request for benzodiazepines recently. However, the context is that he has not communicated much of anything directly, a other than the occasional need for self-care items. 04/24 -Today, the patient repeats his request for benzodiazepines, and insists that he is "supposed" to be taking diazepam 10 mg 3 times a day and temazepam for sleep every night. 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 Unfortunately, the exact op posite seems to have occurred. Not only was the patient was uncooperative subsequent to a dose of Valium, he seems to have been disinhibited by it and shouting "get out" or "get away" several times when approached by staff 04/25 - pt focused on seeking temazepam, or Valium 04/27 -The patient does have a history of substance dependence. However, the current plan and expected disposition is for the patient to be transferred to an extended care inpatient psychiatric unit where abuse of prescribed medications is unlikely to occur. Today, the patient calmly requests temazepam and says that he has tried a number of different sleeping pills, but "that is the one that works." The patient is also able to clearly say that he understands that temazepam is physically habituating that there are associated risks associated with temazepam including, but not limited to, a risk of falls, accidents, confusion, and depression. He tells us that at prescribed dosages he has not had any of these problems in the past. -Today, I agreed to a trial of temazepam 15 mg at bedtime, a dose that the patient says has been effective in the past. 04/30 close monitoring of temazepam given above, so far not taken 05/01 -After persistently insisting that he had to have temazepam in order to sleep and that nursing staff reports that he is sleeping through the night are wrong because he tends to rest with his eyes closed, the patient has not ask for temazepam and has not been given temazepam since it was ordered a week ago. The patient declined to explain why he has not ask for it, and refuses to answer questions today as to whether he is sleeping well without. In fact, when asked to explain why he had not taken any after insisting on having a prescribed, he shouted "get the hell out!!." Perhaps the patient has forgotten that it was ordered, but he seemed to remember the day after it was ordered and ask for not asked for it since. Our thought is that he may have somehow incorporated the order for temazepam into his delusional when belief system, based on his rage when asked to explain why he hasn't asked for it. (3) Hypertension: 02/25 - Continue home dose of clonidine 0.1mg qHS 03/01 Watch mildly elevated blood pressures as patient has been refusing clonidine 03/03 - BP normal past two days, and low today 03/10 -The patient's blood pressure today was 136/73. His pulse was 71 03/14 - elevated BP it is not urgent but will need monitored. 03/15 - BP WNL 8/8 - BP continues to be WNL 15 - BP remains within normal limits; continue daily vitals per standard admission order set - Will consider acute phase of this problem resolved at this time Risk Factors Assessment Male: Yes : Yes Do You Have Access To A Gun?: No Health Problems: Yes Mental Health Diagnoses: Yes Substance Use Disorders: Yes Protective Factors Assessment Druze Beliefs: No : No Responsible for Young Children: No Employed: No Stable Relationships: No Supportive Family: No Good Rapport with Provider: No Absence of Any Risk Factors Above: No Interval History Identifying Information SCOTT ROBERTO is a 73-year-old M who currently lives at a [facility] in [place], has a history of schizophrenia, and is known to our unit from several previous admissions, most recently in 09/2016. He was admitted on 02/24/19 16:40 on a 302 involuntary commitment for exacerbation of schizophrenia and heightened paranoia resulting in belief he needed to hide in a dumpster to seek refuge from imp ending bombings. He was found by [facility] staff and brought to the ED by police, and is on a 304 involuntary commitment as of 03/16/19. He has been referred to [facility] for prison treatment. Chief Complaint "No thank you. I'm busy." Review of Systems Notes Limited ability to assess full review of systems, as patient remains somewhat uncooperative with interview. Pt did not verbalize any physical complaints today. Sleep Information Total Hours of Sleep: 7.75 Sleep Comments: awake at 0425-came out to the kitchen to eat cereal with juice snacks. Meal Information Percent Meal Consumed - Breakfast: 100 Percent Meal Consumed - Lunch: 100 Percent Meal Consumed - Dinner: 100 Nutrition Comment: per meal record Subjective Subjective Patient was seen & assessed and interval progress reviewed with treatment team. Staff report the patient continues to be rather isolative but did agree to take the increased dose of ziprasidone yesterday. Pt was approached by this provider today, requesting to meet with the patient to review interval progress. Pt responded by stating, "No thank you. I'm busy." This provider attempted some additional brief conversation with limited response from the patient. This provider re-visited the patient, who had refused attendance of group therapy. Pt was agreeable to conversation, stating he has not been attending most groups because "I just don't like them." Pt responded to questions, but remained guarded and did not elaborate in responses. Pt states that he has been doing well. He reports, "nothing's changed, I still feel fine" when asked how he has been adjusting to a new medication. Pt denies any significant medication side effects. He denies other needs or concerns at this time. Physical Exam Psychiatric Orientation: alert; + uncooperative Apperance: appropriately dressed and appropriately groomed Eye Contact: + fair eye contact (initially avoids direct eye contact - appropriate contact on 2nd encounter) Motor Behavior: steady gait and station and no abnormal motor movements Speech: normal rate/rhythm/volume of speech (non-spontaneous) Affect: + flat affect and + irritable affect (during initial encounter today) Mood: no depressed mood and no anxious mood "Nothing's changed. I still feel fine." Thought Process: goal directed thought process Thought Content: no delusions Difficulty accurately assessing thought content due to limited participation in conversation; no delusional thought content reported Cognition: attention grossly intact and language grossly intact Estimated Intelligence: consistent with education level Insight: + impaired insight Judgement: + impaired judgement Vital Signs (Past 24 Hours) Last Vital Signs Temp 36.6 C 05/04/19 06:42 Pulse 79 05/04/19 06:43 Resp 18 05/04/19 06:42 BP 115/69 05/04/19 06:43 Pulse Ox 96 02/24/19 08:10 Results & Data Current Inpatient Medications Current Inpatient Medications: Current Inpatient Medications Acetaminophen (Tylenol) 650 mg PO Q4H PRN PRN Reason: Headache or Minor Fever Stop: 05/23/19 08:14 Al Hydrox/Mg Hydrox/Simethicone (Maalox) 30 ml PO Q4H PRN PRN Reason: GI Upset Stop: 05/23/19 08:14 Benztropine Mesylate (Cogentin) 0.5 mg PO BID PRN PRN Reason: dystonia Stop: 05/23/19 08:14 Bismuth Subsalicylate (Kaopectate) 15 ml PO PRN PRN PRN Reason: Loose Stool Stop: 05/23/19 08:14 Clonidine HCl (Catapres) 0.1 mg PO HS MAG Stop: 05/23/19 21:59 Last Admin: 05/03/19 21:19 Dose: Not Given Documented by: Cyanocobalamin (Vitamin B-12) 500 mcg PO DAILY MAG Stop: 05/23/19 08:59 Last Admin: 05/04/19 08:30 Dose: 500 mcg Documented by: Hydroxyzine HCl (Vistaril) 25 mg PO Q4H PRN PRN Reason: Anxiety Stop: 05/23/19 08:14 Hydroxyzine HCl (Vistaril) 50 mg PO HSZ PRN PRN Reason: Insomnia Stop: 05/23/19 08:14 Magnesium Hydroxide (Milk Of Magnesia) 30 ml PO DAILY PRN PRN Reason: Heartburn Stop: 05/23/19 08:19 Magnesium Oxide (Mag-Ox) 400 mg PO DAILY MAG Stop: 05/23/19 08:59 Last Admin: 05/04/19 08:30 Dose: 400 mg Documented by: Miscellaneous (Remove Nicoderm Patch) 1 ea N/A HS MAG Stop: 05/23/19 21:59 Last Admin: 05/03/19 21:20 Dose: Not Given Documented by: Multivitamins (Multivitamin Tab) 1 tab PO DAILY MAG Stop: 05/23/19 08:59 Last Admin: 05/04/19 08:30 Dose: 1 tab Documented by: Nicotine (Nicoderm Cq) 14 mg TD QAM MAG Stop: 05/23/19 08:59 Last Admin: 05/04/19 08:31 Dose: Not Given Documented by: Olanzapine (Zyprexa) 10 mg IM HS PRN PRN Reason: Undecided Stop: 05/23/19 08:19 Pyridoxine HCl (Vitamin B-6) 100 mg PO DAILY MAG Stop: 05/23/19 08:59 Last Admin: 05/04/19 08:30 Dose: 100 mg Documented by: Sodium Chloride ([place] Nasal) 1 - 2 sprays NA PRN PRN PRN Reason: Nasal Dryness/Congestion Stop: 05/23/19 08:19 Ziprasidone (Geodon) 40 mg PO BIDM MAG Stop: 06/02/19 17:44 Last Admin: 05/04/19 08:30 Dose: 40 mg Documented by: Mental Health & Subst Abuse Tx Therapist Name of Therapist: Denies Patternmaker Sample Name of Patternmaker Sample: Shruti Lopez Phone Number for Patternmaker Sample: Case Management Appointment Comment: [phone], [place] [address] Post Discharge Appointments Primary Care Physician Name Of Family Doctor: Dr. Lopez Contact Information Discharge Discharge Address: [address] [place] [id number] CPT Code CPT Code 56258 (1) Schizophrenia Schizophrenia type: paranoid schizophrenia Qualified Code(s): F20.0 - Paranoid schizophrenia (2) Hypertension Hypertension type: essential hypertension Qualified Code(s): I10 - Essential (primary) hypertension
[2019-05-04] MEDS: cloNIDine HCL 0.1 MG TAB PO SCH (21:58)
[2019-05-05] MEDS: MAGNESIUM OXIDE 400 MG TAB PO SCH (08:25)
[2019-05-05] MEDS: MULTIVITAMIN TAB PO SCH (08:25)
[2019-05-05] MEDS: ZIPRASIDONE HCL 20 MG CAP PO SCH ×2 (08:25→17:31)
[2019-05-05] MEDS: CYANOCOBALAMIN 500 MCG TABLET (VITAMIN B-12) PO SCH (08:26)
[2019-05-05] MEDS: PYRIDOXINE HCL 50 MG TAB PO SCH (08:26)
[2019-05-05] MEDS: NICOTINE 14 MG/24 HR PATCH TD SCH (08:28)
--- NOTE | 2019-05-05 09:52 | Psychiatric Progress Note ---
Date of Service May 05, 2019 Impression / Recommendations Impression Patient remains poorly engaged in treatment, refusing most groups. He briefly had a roommate, but was placed back in a private room due to disorganized behavior, after multiple episodes of going into other patient's rooms and staring at them, once wearing nothing but a towel. His [facility] bed was relinquished due to ongoing psychosis and unwillingness to engage in treatment, and although he has been accepted at the [facility] since 04/02/2019, we still do not have a bed date. He has been refusing antipsychotic medications and had not taken anything over a 2 week period, but 04/29 agreed to a trial of ziprasidone, which he is tolerating well, and thus far has been titrated to a dose of 40mg BID with food. Given the chronicity and severity of his condition, it may take weeks to see benefit from medication. The plan is for the patient to be transferred for long-term psychiatric hospitalization, given his inability to cooperate with treatment, given his inability to attend his own physical mi eds without the availability of the full spectrum of psychiatric services at the inpatient level of care, and ongoing psychosis with auditory hallucinations and paranoia. (1) Schizophrenia: 02/25 - Continue home medication regimen - as refusing offerings of his antipsychotic, will likely require olanzapine IM (or alternative agent) over objection, given clear evidence of paranoia and delusional thought process - previously stabilized on this medication - Pt agreeable to taking all other medications, with exception of antipsychotic as mentioned above - Admitted to a locked inpatient behavioral health unit, on q15 minute safety checks - Encourage medication initiation/adjustments as indicated - Encourage participation in group and recreational therapies - Gather collateral information from outpatient providers and penitentiary staff - Suggest family meeting to involve outpatient supports in safety planning - Reschedule appropriate aftercare appointments 02/26 -Patient indicates willingness to sign a release for the [facility], will get collateral from their staff. -File for 303 involuntary commitment to be held tomorrow. -Recommend medications over objection, with an IM Zyprexa backup for refusal of oral medication. Involve outpatient treatment team to discuss ways to improve stability and compliance; consider long-acting injectable antipsychotic. -Order fasting labs for monitoring on an atypical antipsychotic once patient is more cooperative. 02/27 -The patient was retrained at his involuntary commitment hearing (303) this morning. -He has continuously and consistently refused psychiatric medications to date. However, today, when I explained that that a option that might become necessary in his case is medication over objection, and an intramuscular form, the patient said that he understood and that he would try medications that I prescribe. His initial preference would be olanzapine, but because olanzapine is not available in a long acting depot form, we would first like to try aripiprazole. He indicates that he is taken aripiprazole in the past and has been able to tolerate it, although he does not believe that it has been particularly helpful. -A trial dose of aripiprazole 15 mg by mouth, as a one-time dose, has been ordered and he assessed for efficacy. 02/28 -Appears to be tolerating initiation of Abilify so far. Remains delusional, paranoid. May consider further titration tomorrow -Aricept discontinued at patient's request on 02/27/2019. The medication has not been demonstrated to be efficacious for cognitive impairment associated with long-standing schizophrenia however we should be vigilant for slowing of mentation following discontinuation. 03/01 Patient fixated and irrational regarding access to clothing item as above today. Hospital environment becoming incorporated and delusions. Consider possibility that the aripiprazole is contributing to activation. We will i ncrease to 20 mg tomorrow and also start Risperdal 1 mg p.o. twice daily as as needed. 03/02 - Continue with aripiprazole at 20mg daily, consider need for further titration - if tolerating and effective, eventual plan will be for conversion to Abilify Maintena - Pt has not yet utilized risperidone 03/03 - Increase aripiprazole to 25mg (equivalent to 30mg pill) and change to liquid formulation to decrease risk of cheeking/nonadherence, as patient does not believe he needs medication and had been noncompliant prior to hospitalization. - Fasting glucose and lipid profile ordered for tomorrow for monitoring on an atypical antipsychotic. - Private room due to psychosis, agitation, and inappropriate disrobing/sexual behavior. - Meeting with [facility] and [facility] staff when patient able to tolerate. 03/04 - Continue aripiprazole 25mg liquid (30mg pill equivalent) and continue to observe for improvement in thought process/content - consider conversion to Maintena if effective, versus trial of another agent if improvement remains limited - Fasting labs reviewed - all values WNL - Continue medically necessary private room - Request meeting with [facility] staff, in order to obtain details about patient's proximity to baseline 03/05 -Patient refusing liquid aripiprazole, but agrees to take the pill: Ordered 30 mg daily. -Schedule meeting with his returned case inspector, [facility] and psych rehab staff. Consider involuntary outpatient commitment at the time of discharge. 03/06 -The patient has improved in that he is more reality based at this point. He continues to harbor fixed, systematized delusions, but is generally able to focus on reality based topics. -Although the patient tells me that he does not feel that aripiprazole has been effective, he is able to accept my opinion in the opinion of the staff that he has improved in response to aripiprazole. -The patient's main objection to aripiprazole oral solution is that he does not like the way it tastes, and within this context, he tells us that he is willing to accept Abilify Maintenaand requests that it be injected into his buttock. Abilify Maintena 300 mg IM ordered, and oral Abilify discontinued. We will resume oral Abilify if the patient subsequently changes his mind and refuses the injection. 03/07 resuming Abilify oral given his refusal of FARAH form of Abilify 03/08 is taking Abilify po form but refusing Abilify Maintena form. advise close monitoring for potential of checking given pt's tendency to not want to take medications. 03/09 -The patient is flatly refusing to take aripiprazole in the form of Abilify Maintena. He is also been hesitant to take oral Abilify, but has been doing so. -The patient's lack of cooperation is thought possibly to be related to an un-expressed desire to not be discharged back to the community. He told me today that he left his meeting with his community providers after a few seconds because "just the side of them made me extremely anxious. My pulse elevated to 140." Later, he told me that he was still anxious about it and his pulse was "still around 130." The patient allowed me to take his pulse, and it was approximately 76. At that point he said, "did I say pulse? I meant systolic blood pressure." And when I pointed out that his systolic blood pressure of 130 is not considered to be a particular concern, he said "I mean diastolic." -Our hope had been that the patient would agree to accept a Depo form of medication. He was refusing Haldol Decanoate because of various side effects. Risperidone constant was ruled out as a first-line Depo medication because of the frequency of administration (the patient tends to get into power struggles over medications) and because he says that he is sensitive to "big needles." Invega would be an option, but currently the patient is being so uncooperative that our concern would be that he would cheek the oral tablets that we would have to give him first. Accordingly, the new strategy will be to discontinue Abilify, and resume olanzapine with olanzapine IM over objection if necessary. We will begin the olanzapine Zydis 20 mg at bedtime 03/10 -The patient took the prescribed dose of olanzapine Zydis 20 mg at bedtime last night. Today, he tells me that it "did not help at all." However, staff report that he has been somewhat more agreeable, more pleasant, and less paranoid today. -As he has with other providers, today he told me that I should have given him olanzapine 5 mg "to start", and I explained that he was already on olanzapine 20 mg when he came into the hospital and we know that he is able to tolerate that dose. He tells me that he did, in fact tolerate the dose and is not aware of any side effects, but, somewhat illogically, insisted that the dose was "too high for a starting dose." 03/11 - Continue current medication regimen at this time - olanzapine 20mg daily - Encourage participation in the milieu and in group programming as tolerated 03/12 -Continue current medication regimen. The patient's condition has not yet improved. -The patient does participate in select groups, but often tends to be disruptive. 03/13 -Today, the patient seems to be somewhat more cooperative and less frankly delusional. It was possible to engage in a mostly reality based conversation for 5 or 10 minutes at a time. Also, although he was unhappy with me when I refused to provide him with a dose of Valium for anxiety, he was able to remain pleasant and calm at this time, did not storm from the room." 03/14 and 03/15 -no change in medication will work on therapeutic alliance given patient is not participating 03/16 -304 involuntary commitment granted. -Patient remains completely uncooperative with treatment, refused his Zyprexa Zydis last evening, but then ultimately took it before he received the injection. I have a high suspicion for cheeking of antipsychotic medication, and we will continue to be vigilant with mouth checks, and work towards a long- acting injectable. 03/17 -Patient has been on Zyprexa 20 mg at bedtime for 1 week, with limited response. He is refusing to discuss other medication options. Per records, he has been prescribed up to 30 mg olanzapine in the past, so will increase his dose to this previously tolerated dose, as it is 1 of the few medications he has been willing to take. Continue IM backup for refusal, and Zyprexa Zydis formulation to decrease risk of cheeking. He is not compliant with mouth checks, but have asked staff to try to observe him for 10 minutes after taking the Zydis to ensure he is not spitting it out before it dissolves. 03/18 -Continue Zyprexa Zydis 30 mg at bedtime with IM backup. Consider switch to a different medication (?oral paliperidone with IM backup) if irritability and agitation continues. He has tried virtually every atypical antipsychotic and reports none of them were effective (although some trials were short due to nonadherence) and has a history of dystonia on haloperidol. Clozapine would be a reasonable choice, but he has been unwilling to even discuss medication options. -Consider some component of cognitive decline which could be contributing to his worsening presentation and will need to be monitored and worked up further once he is more psychiatrically stable. -Refer to [facility] in the event that he does not improve and long-term inpatient treatment is needed. 03/19 - Proceed with [facility] referral. 03/20 - Continue current medication regimen; patient refused EKG and CXR yesterday - refused again today - Continue attempts to gather information to make a referral to [facility] 03/23 - Proceed with [facility] referral - patient has refused EKG and CXR for multiple attempts. We will send most recent tests available - Continue current medication regimen at this time 03/24 -Attempted to hold diversion meeting with his outpatient [facility], penitentiary director, and the [facility] MH/ID; patient refused to attend or participate in the meeting. 03/25 - 03/26 - Continue treatment plan as above - no change in patient's condition and he remains unwilling to participate meaningfully in treatment - Continue with [facility] referral 03/27 -The patient has been informed that the plan at this point is to transfer him to [facility] for long-term inpatient psychiatric treatment, given his refusal to adhere with treatment and his associated behaviors in the community when not adherent with psychiatric treatment. -The patient continues to refuse mouth checks after given dosages of Zyprexa Zydis, and there is some question regarding whether he is actually ingesting this medication. He also would not cooperate with laboratory testing. -There has been a question regarding the patient's cognitive functions, and prior to admission he had been taking Aricept. When he does cooperate with this, I have not seen evidence of any substantial cognitive impairment. He may have mild cognitive impairment, but does not fully cooperate with formal cognitive assessment. He easily recalls the names of his providers, the names of the medications he is taking, the names of the various infectious agents that he believes are causing some of his psychiatric symptoms, the names of certain chemicals that he believes will rid him of the reference to infections, and is able to discuss current events such as recent news items. His assertion that he wants to return to his apartment in the community seems belied by his steadfast refusal to cooperate with those interventions I would make it possible for him to return, and there is some suspicion that although the patient remains floridly psychotic he may also be intentionally sabotaging discharge. 03/28 - 03/30 -There is been no change lead the past 2 weeks, and long-term inpatient treatment at the [facility] is indicated. 03/31 - Continue current medication regimen - Pt briefly verbalized willingness for FARAH, but was not agreeable to medication adjustments to allow for this to be possible - If he should change his mind; recommendation is for trial of Invega orally to establish tolerability, then consideration for Invega Sustenna - unwilling for this today 04/01 - 04/03 - Continue current medication regimen - Continues to refuse FARAH, will continue discussion daily as this is the reported preference of his CRR 04/04 -Questionable positive PPD measuring 13 mm but history of confinement places him at higher risk. Patient refused chest x-ray today but we will reapproach. No active symptoms of infection. Order for sputum culture and smear today for confirmation. 04/05 -PPD now appears negative. Would suggest follow through with sputum smear and culture for confirmation as previously ordered -Continue treatment plan as above 04/06 - PPD reportedly negative, patient unable to follow-up with sputum smear - therefore discontinued - Continue medication regimen as above - unwilling to discuss conversion to an FARAH - Meeting today with representation from [facility] to discuss discharge planning 04/07 - Continue medication regimen as above - remains unwilling to discuss changes - Additional meeting with CRR and CM scheduled for next week - We have been regularly assessing patient's condition and appropriateness to go outside since his 30-day treatment plan review. As patient continues to be unwilling to participate in a meaningful conversation with providers regarding his condition, we continue to be unable to determine if he is appropriate to be taken off the unit - therefore will await ability to discuss the topic in a meaningful way prior to making this determination. Will continue regular evaluation. 04/08 - 04/12 - Continue current medication regimen, as patient unwilling to discuss changes - Attempted again to determine if appropriate to go outside, patient unwilling to participate in conversation despite being told the goal of allowing him to go outside - Meeting with CM and CRR director scheduled for 04/13 at 1030 04/13 - Continue Zyprexa 30mg daily - unwilling to engage in conversation to discuss changes - Remains unwilling to engage in conversation to determine if he is appropriate to go outside, he has been made aware this is a possibility for him - Meeting for attempted diversion resulted in decision to no longer hold patient's [facility] bed, [facility] admission is supported based on little to no improvement since admission and limited willingness to engage in conversations regarding medication adjustments - We have been asked to attempt to get a QuantiFERON-TB Gold Plus test, despite negative PPD reading within acceptable timeframe - pt unwilling to engage in conversation to obtain consent, further indicating why long-term inpatient psychiatric hospitalization is necessary. Will continue to attempt to gain consent for this testing to be completed 04/15 -The patient is slightly more communicative today and that he does answer at least one question which was whether he would be in agreement if we offered him a drug holiday from olanzapine. His response was in the affirmative.. He also said "thank you." -The patient continues to appear suspicious and he clearly is angry at and unwilling to cooperate with staff. He is particularly bumptious with individuals who he sees as not fully trained and fully qualified. -The plan remains transfer to the [facility] for long-term psychiatric care. Our hope remains that we will be able to divert the patient from the [facility], but the patient, as noted above, remains uncommunicative and resistant. Perhaps contributing to the patient's obvious anger and distress is the fact that he has learned this week that his residential program is unwilling to allow him to return and has stopped holding his bed for other individuals. 04/16 - Continue current treatment plan, which includes holiday from olanzapine as a rapport building attempt, and due to concerns that he is more irritable and resistant to treatment - which is obviously not beneficial for his overall condition. - Attempted to communicate with the patient today via written/printed text - will add addendum to this note if patient was willing to complete the sheet and respond to questions 04/21 -Patient remains uncooperative and unwilling to participate in interviews, but has been out of his room more and attending some groups. He remains unwilling to discuss treatment options, including antipsychotic medication. 04/22 - Patient remains unwilling for medications, but is interacting with peers appropriately and attending groups. Will try discontinuing private room and placing him with a roommate, is perhaps increased socialization will be therapeutic for him. 04/23 -no change, patient still unwilling for medications(other than marijuana and benzos) 04/24 -The patient remains angry, suspicious, and largely uncommunicative. He spoke briefly with the attending psychiatrist today in order to request privileges to go outdoors with staff, and was able to cooperate with a fresh air break, but subsequently was angry, bumptious, and willing to cooperate with assessments. 04/25 - Valium 5mg dose yesterday appeared to lead to some disinhibited verbally agitated behavior, with the Valium dose being discontinued following that one dose. Pt is fixated on Valium and on temazepam. refusal to take other medications with. Handling a roommate decently currently. Pt refusing to attend groups. Limited engagement with peers and staff occurring. no change to plan today 04/26 no change to plan today 04/27 -The patient cooperated with an interview today after several weeks of fla tly refusing, sometimes rudely refusing to speak to providers. Today, the patient not voiced any delusional material and was able to specifically answer questions regarding perceptual disturbances. 04/28 -no change. 04/29 -start ziprasidone 20 mg twice daily with meals. Reviewed risks, benefits and common side effects including sedation and the need to take with food. 04/30 maintained ziprasidone at current dose today given pt's tendency to refuse medications mikey if notice any s/e, considering raising dose tomorrow 05/01 -Based on the patient's behavior today there seems to be no evidence that the patient is enjoying any particular benefit from ziprasidone. To the contrary, he may have become more bumptious and withdrawn. My recommendation is that we continue to observe him on ziprasidone 20 mg twice a day before increasing his dose further, possibly over the weekend. 05/02 -continue current medication and consider dose increase next week. It is likely that it will take weeks to show benefit from antipsychotic medication given the severity and chronicity of his symptoms, and his history of treatment resistance. He would be a good candidate for clozapine, but has never been harman ling to consider it. 05/03 -increase ziprasidone to 40 mg twice daily with food. Continue to encourage group attendance. 05/04 - Continue recently increased dose of ziprasidone 40mg BID with food 05/05 - Continue as above; limited change in presentation at this time (2) Substance abuse: 02/25 - Pt has reported history of substance abuse, and recommendation has consistently been for avoidance of substances with significant abuse potential. - PDMP queried - most recent prescriptions below - lorazepam 0.5mg #60 tabs for 30 day supply - Dr. Alves - filled 02/12/2019 - alprazolam 0.5mg #90 tabs for 30 day supply - Dr. Lopez - filled 01/16/2019 - temazepam 30mg #30 caps for 30 day supply - Dr. Lopez - filled 01/16/2019 - Will continue lorazepam 0.5mg BID prn on admission, as only medication that is seemingly active - toxicology screen is negative for benzodiazepines, which questions if he has been taking the medication appropriately - Ideally will taper and discontinue the lorazepam, as recommendation remains that substances with abuse potential be avoided 02/26 -The patient's outpatient providers, during a meeting this morning, report that the patient tends to successfully convince physicians to prescribe benzodiazepines for him and that, in the past, he has abused him to the degree that he is practically obtunded. 02/27 -A repeat check of the PDMP reveals that the patient is consistently being prescribed lorazepam 0.5 mg twice daily (number 60/month) by a Dr. Brent Alves. He is also being prescribed alprazolam 0.[address] mg [address] Jeff Lopez, with the most recent previous prescription of alprazolam being on 01/16/[address] Lopez also prescribed temazepam 30 mg capsules #30 on 01/16/2019. According to his residential providers, no temazepam capsules were found among the patient's belongings. His most recent prescription for lorazepam 0.5 mg tablets was filled on 02/12/2019. 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 In the past, he reportedly has used clonazepam and temazepam. -I advised the patient that because of his history of misuse of benzodiazepines we would not be prescribing benzodiazepines during his hospital stay. An as needed order for lorazepam has not been used during hospital stay, and I discontinued the order today. 03/02 - Will need to coordinate care with his PCP and outpatient psychiatrist prior to discharge regarding the above. 03/04 - Charge nurse spoke with the above offices regarding concern for continued benzodiazepine prescriptions - Records will be faxed to their offices on discharge, as all benzodiazepines were discontinued during this hospitalization 03/06 -The patient did not request benzodiazepines and did not complain of anxiety today. I suggested to him that perhaps Abilify is also helping with anxiety in his case, and he responded by saying "perhaps." 03/09 -Today, the patient is insisting that what he needs is "benzodiazepines," and explains that the reason he "needs" benzodiazepines is that he has "benzodiazepi ne receptors," and that he is the only medications that work. He is unable to process warnings about the risks of benzodiazepines in the elderly, including increased risk of falls and mortality. Clearly, the patient is seeking benzodiazepines and has no insight into the associated risks. He also insists that he has never had trouble with benzodiazepines in the past, although there is well-documented of this. 03/10 -Today, the patient repeated his insistence that he needs benzodiazepines and that benzodiazepines are the only medications that work because he has "benzodiazepine receptors." After being told that everyone has central nervous system receptors to which benzodiazepines may attach, he replied, "That may be, but some of people need to have benzodiazepines forearm benzodiazepine receptors. 03/12 -Continues to request Benzodiazepines. 03/13 -Requests Valium for his "benzodiazepines receptors." 03/27 -Refuses to cooperate with assessment today, but has recently told staff that he needs "either Valium or Ativan." -The patient apparently has no working insight into his history of abuse of prescription medications (benzodiazepines). 04/15 -The patient has not reference to request for benzodiazepines recently. However, the context is that he has not communicated much of anything directly, a other than the occasional need for self-care items. 04/24 -Today, the patient repeats his request for benzodiazepines, and insists that he is "supposed" to be taking diazepam 10 mg 3 times a day and temazepam for sleep every night. 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 Unfortunately, the exact opposite seems to have occurred. Not only was the patient was uncooperative subsequent to a dose of Valium, he seems to have been disinhibited by it and shouting "get out" or "get away" several times when approached by staff 04/25 - pt focused on seeking temazepam, or Valium 04/27 -The patient does have a history of substance dependence. However, the current plan and expected disposition is for the patient to be transferred to an extended care inpatient psychiatric unit where abuse of prescribed medications is unlikely to occur. Today, the patient calmly requests temazepam and says that he has tried a number of different sleeping pills, but "that is the one that works." The patient is also able to clearly say that he understands that temazepam is physically habituating that there are associated risks associated with temazepam including, but not limited to, a risk of falls, accidents, confusion, and depression. He tells us that at prescribed dosages he has not had any of these problems in the past. -Today, I agreed to a trial of temazepam 15 mg at bedtime, a dose that the patient says has been effective in the past. 04/30 close monitoring of temazepam given above, so far not taken 05/01 -After persistently insisting that he had to have temazepam in order to sleep and that nursing staff reports that he is sleeping through the night are wrong because he tends to rest with his eyes closed, the patient has not ask for temazepam and has not been given temazepam since it was ordered a week ago. The patient declined to explain why he has not ask for it, and refuses to answer questions today as to whether he is sleeping well without. In fact, when asked to explain why he had not taken any after insisting on having a prescribed, he shouted "get the hell out!!." Perhaps the patient has forgotten that it was ordered, but he seemed to remember the day after it was ordered and ask for not asked for it since. Our thought is that he may have somehow incorporated the order for temazepam into his delusional when belief system, based on his rage when asked to explain why he hasn't asked for it. (3) Hypertension: 02/25 - Continue home dose of clonidine 0.1mg qHS 03/01 Watch mildly elevated blood pressures as patient has been refusing clonidine 03/03 - BP normal past two days, and low today 03/10 -The patient's blood pressure today was 136/73. His pulse was 71 03/14 - elevated BP it is not urgent but will need monitored. 03/15 - BP WNL /8 - BP continues to be WNL 04/02 - BP remains within normal limits; continue daily vitals per standard admission order set - Will consider acute phase of this problem resolved at this time Risk Factors Assessment Male: Yes : Yes Do You Have Access To A Gun?: No Health Problems: Yes Mental Health Diagnoses: Yes Substance Use Disorders: Yes Protective Factors Assessment Buddhism Beliefs: No : No Responsible for Young Children: No Employed: No Stable Relationships: No Supportive Family: No Good Rapport with Provider: No Absence of Any Risk Factors Above: No Interval History Identifying Information SCOTT ROBERTO is a 73-year-old M who currently lives at a [facility] in [place], has a history of schizophrenia, and is known to our unit from several previous admissions, most recently in 09/2016. He was admitted on 02/24/19 16:40 on a 302 involuntary commitment for exacerbation of schizophrenia and heightened paranoia resulting in belief he needed to hide in a dumpster to seek refuge from impending bombings. He was found by [facility] staff and brought to the ED by police, and is on a 304 involuntary commitment as of 03/16/19. 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 Chief Complaint "I'm fine." Review of Systems Notes Pt only minimally cooperative with interview, therefore limiting ability to assess full ROS. Pt does not verbalize any physical concerns. Sleep Information Total Hours of Sleep: 8 Sleep Comments: awake at 0425-came out to the kitchen to eat cereal with juice snacks. Meal Information Percent Meal Consumed - Breakfast: 100 Percent Meal Consumed - Lunch: 100 Percent Meal Consumed - Dinner: 100 Nutrition Comment: per meal record Subjective Subjective Patient was seen & assessed and interval progress reviewed with nursing and social work. Staff reports the patient continues to be compliant with scheduled doses of ziprasidone. He has been consistently refusing groups. Pt met with his returned case inspector yesterday, and demonstrated delusional thought content that he was given a court order to leave the hospital. Elopement precautions were initiated as patient had been pacing the hallways and lingering near doors after this event. Pt was seen today to assess progress since admission. Pt states that he is "fine" and was minimally cooperative with conversation. He admits he has not been going to groups, but is unable to speak with this provider about alternative activities he may enjoy doing to allow him to be out of his room. Pt denies medication side effects, and is rather limited in willingness to continue conversation. He denies acute needs at this time. This provider was informed by nursing that patient's fingernails were rather long, patient offered and accepted a nail trimming today without incident. Physical Exam Psychiatric Orientation: alert; + uncooperative (though participates briefly in superficial conversation) Apperance: appropriately dressed and appropriately groomed Eye Contact: good eye contact Motor Behavior: steady gait and station and no abnormal motor movements Speech: normal rate/rhythm/volume of speech (non-spontaneous, mildly irritable t one today) Affect: + flat affect Mood: no depressed mood "I'm fine" Thought Process: goal directed thought process and + concrete thought process Thought Content: + delusions (continuing to report that he will be leaving the unit) Cognition: attention grossly intact and language grossly intact Insight: + impaired insight Judgement: + impaired judgement Vital Signs (Past 24 Hours) Last Vital Signs Temp 36.7 C 05/05/19 06:36 Pulse 64 05/05/19 06:37 Resp 18 05/05/19 06:36 BP 138/76 05/05/19 06:37 Pulse Ox 96 02/24/19 08:10 Results & Data Current Inpatient Medications Current Inpatient Medications: Current Inpatient Medications Acetaminophen (Tylenol) 650 mg PO Q4H PRN PRN Reason: Headache or Minor Fever Stop: 05/23/19 08:14 Al Hydrox/Mg Hydrox/Simethicone (Maalox) 30 ml PO Q4H PRN PRN Reason: GI Upset Stop: 05/23/19 08:14 Benztropine Mesylate (Cogentin) 0.5 mg PO BID PRN PRN Reason: dystonia Stop: 05/23/19 08:14 Bismuth Subsalicylate (Kaopectate) 15 ml PO PRN PRN PRN Reason: Loose Stool Stop: 05/23/19 08:14 Clonidine HCl (Catapres) 0.1 mg PO HS [facility] Stop: 05/23/19 21:59 Last Admin: 05/04/19 21:58 Dose: Not Given Documented by: Cyanocobalamin (Vitamin B-12) 500 mcg PO DAILY MAG Stop: 05/23/19 08:59 Last Admin: 05/05/19 08:26 Dose: 500 mcg Documented by: Hydroxyzine HCl (Vistaril) 25 mg PO Q4H PRN PRN Reason: Anxiety Stop: 05/23/19 08:14 Hydroxyzine HCl (Vistaril) 50 mg PO HSZ PRN PRN Reason: Insomnia Stop: 05/23/19 08:14 Magnesium Hydroxide (Milk Of Magnesia) 30 ml PO DAILY PRN PRN Reason: Heartburn Stop: 05/23/19 08:19 Magnesium Oxide (Mag-Ox) 400 mg PO DAILY MAG Stop: 05/23/19 08:59 Last Admin: 05/05/19 08:25 Dose: 400 mg Documented by: Miscellaneous (Remove Nicoderm Patch) 1 ea N/A HS [facility] Stop: 05/23/19 21:59 Last Admin: 05/04/19 21:58 Dose: Not Given Documented by: Multivitamins (Multivitamin Tab) 1 tab PO DAILY MAG Stop: 05/23/19 08:59 Last Admin: 05/05/19 08:25 Dose: 1 tab Documented by: Nicotine (Nicoderm Cq) 14 mg TD QAM MAG Stop: 05/23/19 08:59 Last Admin: 05/05/19 08:28 Dose: Not Given Documented by: Olanzapine (Zyprexa) 10 mg IM HS PRN PRN Reason: Undecided Stop: 05/23/19 08:19 Pyridoxine HCl (Vitamin B-6) 100 mg PO DAILY MAG Stop: 05/23/19 08:59 Last Admin: 05/05/19 08:26 Dose: 100 mg Documented by: Sodium Chloride (Loving Nasal) 1 - 2 sprays NA PRN PRN PRN Reason: Nasal Dryness/Congestion Stop: 05/23/19 08:19 Ziprasidone (Geodon) 40 mg PO BIDM MAG Stop: 06/02/19 17:44 Last Admin: 05/05/19 08:25 Dose: 40 mg Documented by: Mental Health & Subst Abuse Tx Therapist Name of Therapist: Sammy Punch Operator Name of Punch Operator: Shruti Lopez Phone Number for Punch Operator: Case Management Appointment Comment: [phone], [place] [address] Post Discharge Appointments Primary Care Physician Name Of Family Doctor: Dr. Lopez Contact Information Discharge Discharge Address: [address] [place] [address], [place] [address] CPT Code CPT Code 12323 (1) Schizophrenia Schizophrenia type: paranoid schizophrenia Qualified Code(s): F20.0 - Paranoid schizophrenia (2) Hypertension Hypertension type: essential hypertension Qualified Code(s): I10 - Essential (primary) hypertension
[2019-05-05] MEDS: cloNIDine HCL 0.1 MG TAB PO SCH (20:56)
[2019-05-06] MEDS: PYRIDOXINE HCL 50 MG TAB PO SCH (08:51)
[2019-05-06] MEDS: CYANOCOBALAMIN 500 MCG TABLET (VITAMIN B-12) PO SCH (08:51)
[2019-05-06] MEDS: NICOTINE 14 MG/24 HR PATCH TD SCH (08:51)
[2019-05-06] MEDS: MULTIVITAMIN TAB PO SCH (08:51)
[2019-05-06] MEDS: MAGNESIUM OXIDE 400 MG TAB PO SCH (08:51)
[2019-05-06] MEDS: ZIPRASIDONE HCL 20 MG CAP PO SCH ×2 (08:51→17:25)
--- NOTE | 2019-05-06 11:26 | Psychiatric Progress Note ---
Date of Service May 06, 2019 Impression / Recommendations Impression Patient remains poorly engaged in treatment, refusing most groups. He briefly had a roommate, but was placed back in a private room due to disorganized behavior, after multiple episodes of going into other patient's rooms and staring at them, once wearing nothing but a towel. His correction bed was relinquished due to ongoing psychosis and unwillingness to engage in treatment, and although he has been accepted at the [facility] since 04/02/2019, we still do not have a bed date. He has been refusing antipsychotic medications and had not taken anything over a 2 week period, but 04/29 agreed to a trial of ziprasidone, which he is tolerating well, being increased to 60mg BID starting this evening. Given the chronicity and severity of his condition, it may take weeks to see benefit from medication. The plan is for the patient to be transferred for long-term psychiatric hospitalization, given his inability to cooperate with treatment, given his inability to attend his own physical needs without the availability of the full spectrum of psychiatric services at the inpatient level of care, and ongoing psychosis with auditory hallucinations and paranoia. (1) Schizophrenia: 02/25 - Continue home medication regimen - as refusing offerings of his antipsychotic, will likely require olanzapine IM (or alternative agent) over objection, given clear evidence of paranoia and delusional thought process - previously stabilized on this medication - Pt agreeable to taking all other medications, with exception of antipsychotic as mentioned above - Admitted to a locked inpatient behavioral health unit, on q15 minute safety checks - Encourage medication initiation/adjustments as indicated - Encourage participation in group and recreational therapies - Gather collateral information from outpatient providers and correction staff - Suggest family meeting to involve outpatient supports in safety planning - Reschedule appropriate aftercare appointments 02/26 -Patient indicates willingness to sign a release for the [facility] correction, will get collateral from their staff. -File for 303 involuntary commitment to be held tomorrow. -Recommend medications over objection, with an IM Zyprexa backup for refusal of oral medication. Involve outpatient treatment team to discuss ways to improve stability and compliance; consider long-acting injectable antipsychotic. -Order fasting labs for monitoring on an atypical antipsychotic once patient is more cooperative. 02/27 -The patient was retrained at his involuntary commitment hearing (303) this morning. -He has continuously and consistently refused psychiatric medications to date. However, today, when I explained that that a option that might become necessary in his case is medication over objection, and an intramuscular form, the patient said that he understood and that he would try medications that I prescribe. His initial preference would be olanzapine, but because olanzapine is not available in a long acting depot form, we would first like to try aripiprazole. He indicates that he is taken aripiprazole in the past and has been able to tolerate it, although he does not believe that it has been particularly helpful. -A trial dose of aripiprazole 15 mg by mouth, as a one-time dose, has been ordered and he assessed for efficacy. 02/28 -Appears to be tolerating initiation of Abilify so far. Remains delusional, paranoid. May consider further titration tomorrow -Aricept discontinued at patient's request on 02/27/2019. The medication has not been demonstrated to be efficacious for cognitive impairment associated with long-standing schizophrenia however we should be vigilant for slowing of mentation following discontinuation. 03/01 Patient fixated and irrational regarding access to clothing item as above today. Hospital environment becoming incorporated and delusions. Consider possibility that the aripiprazole is contributing to activation. We will increase to 20 mg tomorrow and also start Risperdal 1 mg p.o. twice daily as as needed. 03/02 - Continue with aripiprazole at 20mg daily, consider need for further titration - if tolerating and effective, eventual plan will be for conversion to Abilify Maintena - Pt has not yet utilized risperidone 03/03 - Increase aripiprazole to 25mg (equivalent to 30mg pill) and change to liquid formulation to decrease risk of cheeking/nonadherence, as patient does not believe he needs medication and had been noncompliant prior to hospitalization. - Fasting glucose and lipid profile ordered for tomorrow for monitoring on an atypical antipsychotic. - Private room due to psychosis, agitation, and inappropriate disrobing/sexual behavior. - Meeting with BCM and CRR staff when patient able to tolerate. 03/04 - Continue aripiprazole 25mg liquid (30mg pill equivalent) and continue to observe for improvement in thought process/content - consider conversion to Maintena if effective, versus trial of another agent if improvement remains limited - Fasting labs reviewed - all values WNL - Continue medically necessary private room - Request meeting with CRR staff, in order to obtain details about patient's proximity to baseline 03/05 -Patient refusing liquid aripiprazole, but agrees to take the pill: Ordered 30 mg daily. -Schedule meeting with his porter sample case, CRR and psych rehab staff. Consider involuntary outpatient commitment at the time of discharge. 03/06 -The patient has improved in that he is more reality based at this point. He continues to harbor fixed, systematized delusions, but is generally able to focus on reality based topics. -Although the patient tells me that he does not feel that aripiprazole has been effective, he is able to accept my opinion in the opinion of the staff that he has improved in response to aripiprazole. -The patient's main objection to aripiprazole oral solution is that he does not like the way it tastes, and within this context, he tells us that he is harman ling to accept Abilify Maintenaand requests that it be injected into his buttock. Abilify Maintena 300 mg IM ordered, and oral Abilify discontinued. We will resume oral Abilify if the patient subsequently changes his mind and refuses the injection. 03/07 resuming Abilify oral given his refusal of FARAH form of Abilify 03/08 is taking Abilify po form but refusing Abilify Maintena form. advise close monitoring for potential of checking given pt's tendency to not want to take medications. 03/09 -The patient is flatly refusing to take aripiprazole in the form of Abilify Maintena. He is also been hesitant to take oral Abilify, but has been doing so. -The patient's lack of cooperation is thought possibly to be related to an un-expressed desire to not be discharged back to the community. He told me today that he left his meeting with his community providers after a few seconds because "just the side of them made me extremely anxious. My pulse elevated to 140." Later, he told me that he was still anxious about it and his pulse was "still around 130." The patient allowed me to take his pulse, and it was approximately 76. At that point he said, "did I say pulse? I meant systolic blood pressure." And when I pointed out that his systolic blood pressure of 130 is not considered to be a particular concern, he said "I mean diastolic." -Our hope had been that the patient would agree to accept a Depo form of medication. He was refusing Haldol Decanoate because of various side effects. Risperidone constant was ruled out as a first-line Depo medication because of the frequency of administration (the patient tends to get into power struggles over medications) and because he says that he is sensitive to "big needles." Invega would be an option, but currently the patient is being so uncooperative that our concern would be that he would cheek the oral tablets that we would have to give him first. Accordingly, the new strategy will be to discontinue Abilify, and resume olanzapine with olanzapine IM over objection if necessary. We will begin the olanzapine Zydis 20 mg at bedtime 03/10 -The patient took the prescribed dose of olanzapine Zydis 20 mg at bedtime last night. Today, he tells me that it "did not help at all." However, staff report that he has been somewhat more agreeable, more pleasant, and less paranoid today. -As he has with other providers, today he told me that I should have given him olanzapine 5 mg "to start", and I explained that he was already on olanzapine 20 mg when he came into the hospital and we know that he is able to tolerate that dose. He tells me that he did, in fact tolerate the dose and is not aware of any side effects, but, somewhat illogically, insisted that the dose was "too high for a starting dose." 03/11 - Continue current medication regimen at this time - olanzapine 20mg daily - Encourage participation in the milieu and in group programming as tolerated 03/12 -Continue current medication regimen. The patient's condition has not yet improved. -The patient does participate in select groups, but often tends to be disruptive. 03/13 -Today, the patient seems to be somewhat more cooperative and less frankly delusional. It was possible to engage in a mostly reality based conversation for 5 or 10 minutes at a time. Also, although he was unhappy with me when I refused to provide him with a dose of Valium for anxiety, he was able to remain pleasant and calm at this time, did not storm from the room." 03/14 and 03/15 -no change in medication will work on therapeutic alliance given patient is not participating 03/16 -304 involuntary commitment granted. -Patient remains completely uncooperative with treatment, refused his Zyprexa Zydis last evening, but then ultimately took it before he received the injection. I have a high suspicion for cheeking of antipsychotic medication, and we will continue to be vigilant with mouth checks, and work towards a long- acting injectable. 03/17 -Patient has been on Zyprexa 20 mg at bedtime for 1 week, with limited response. He is refusing to discuss other medication options. Per records, he has been prescribed up to 30 mg olanzapine in the past, so will increase his dose to this previously tolerated dose, as it is 1 of the few medications he has been willing to take. Continue IM backup for refusal, and Zyprexa Zydis formulation to decrease risk of cheeking. He is not compliant with mouth checks, but have asked staff to try to observe him for 10 minutes after taking the Zydis to ensure he is not spitting it out before it dissolves. 03/18 -Continue Zyprexa Zydis 30 mg at bedtime with IM backup. Consider switch to a different medication (?oral paliperidone with IM backup) if irritability and agitation continues. He has tried virtually every atypical antipsychotic and reports none of them were effective (although some trials were short due to nonadherence) and has a history of dystonia on haloperidol. Clozapine would be a reasonable choice, but he has been unwilling to even discuss medication options. -Consider some component of cognitive decline which could be contributing to his worsening presentation and will need to be monitored and worked up further once he is more psychiatrically stable. -Refer to [facility] in the event that he does not improve and long-term inpatient treatment is needed. 03/19 - Proceed with [facility] referral. 03/20 - Continue current medication regimen; patient refused EKG and CXR yesterday - refused again today - Continue attempts to gather information to make a referral to [facility] 03/23 - Proceed with [facility] referral - patient has refused EKG and CXR for multiple attempts. We will send most recent tests available - Continue current medication regimen at this time 03/24 -Attempted to hold diversion meeting with his outpatient [facility], correction director, and the [facility]; patient refused to attend or participate in the meeting. 03/25 - 03/26 - Continue treatment plan as above - no change in patient's condition and he remains unwilling to participate meaningfully in treatment - Continue with [place] referral 03/27 -The patient has been informed that the plan at this point is to transfer him to [facility] for long-term inpatient psychiatric treatment, given his refusal to adhere with treatment and his associated behaviors in the community when not adherent with psychiatric treatment. -The patient continues to refuse mouth checks after given dosages of Zyprexa Zydis, and there is some question regarding whether he is actually ingesting this medication. He also would not cooperate with laboratory testing. -There has been a question regarding the patient's cognitive functions, and prior to admission he had been taking Aricept. When he does cooperate with this, I have not seen evidence of any substantial cognitive impairment. He may have mild cognitive impairment, but does not fully cooperate with formal cognitive assessment. He easily recalls the names of his providers, the names of the medications he is taking, the names of the various infectious agents that he believes are causing some of his psychiatric symptoms, the names of certain chemicals that he believes will rid him of the reference to infections, and is able to discuss current events such as recent news items. His assertion that he wants to return to his apartment in the community seems belied by his steadfast refusal to cooperate with those interventions I would make it possible for him to return, and there is some suspicion that although the patient remains floridly psychotic he may also be intentionally sabotaging discharge. 03/28 - 03/30 -There is been no change release manager the past 2 weeks, and long-term inpatient treatment at the [facility] is indicated. 03/31 - Continue current medication regimen - Pt briefly verbalized willingness for FARAH, but was not agreeable to medication adjustments to allow for this to be possible - If he should change his mind; recommendation is for trial of Invega orally to establish tolerability, then consideration for Invega Sustenna - unwilling for this today 04/01 - 04/03 - Continue current medication regimen - Continues to refuse FARAH, will continue discussion daily as this is the reported preference of his CRR 04/04 -Questionable positive PPD measuring 13 mm but history of confinement places him at higher risk. Patient refused chest x-ray today but we will reapproach. No active symptoms of infection. Order for sputum culture and smear today for confirmation. 04/05 -PPD now appears negative. Would suggest follow through with sputum smear and culture for confirmation as previously ordered -Continue treatment plan as above 04/06 - PPD reportedly negative, patient unable to follow-up with sputum smear - therefore discontinued - Continue medication regimen as above - unwilling to discuss conversion to an FARAH - Meeting today with representation from [facility] to discuss d ischarge planning 04/07 - Continue medication regimen as above - remains unwilling to discuss changes - Additional meeting with CRR and CM scheduled for next week - We have been regularly assessing patient's condition and appropriateness to go outside since his 30-day treatment plan review. As patient continues to be unwilling to participate in a meaningful conversation with providers regarding his condition, we continue to be unable to determine if he is appropriate to be taken off the unit - therefore will await ability to discuss the topic in a meaningful way prior to making this determination. Will continue regular evaluation. 04/08 - 04/12 - Continue current medication regimen, as patient unwilling to discuss changes - Attempted again to determine if appropriate to go outside, patient unwilling to participate in conversation despite being told the goal of allowing him to go outside - Meeting with CM and CRR director scheduled for 04/13 at 1030 04/13 - Continue Zyprexa 30mg daily - unwilling to engage in conversation to discuss changes - Remains unwilling to engage in conversation to determine if he is appropriate to go outside, he has been made aware this is a possibility for him - Meeting for attempted diversion resulted in decision to no longer hold patient's CRR bed, [place] admission is supported based on little to no improvement since admission and limited willingness to engage in conversations regarding medication adjustments - We have been asked to attempt to get a QuantiFERON-TB Gold Plus test, despite negative PPD reading within acceptable timeframe - pt unwilling to engage in conversation to obtain consent, further indicating why long-term inpatient psychiatric hospitalization is necessary. Will continue to attempt to gain consent for this testing to be completed 04/15 -The patient is slightly more communicative today and that he does answer at least one question which was whether he would be in agreement if we offered him a drug holiday from olanzapine. His response was in the affirmative.. He also said "thank you." -The patient continues to appear suspicious and he clearly is angry at and unwilling to cooperate with staff. He is particularly bumptious with individuals who he sees as not fully trained and fully qualified. -The plan remains transfer to the [facility] for long-term psychiatric care. Our hope remains that we will be able to divert the patient from the [facility], but the patient, as noted above, remains uncommunicative and resistant. Perhaps contributing to the patient's obvious anger and distress is the fact that he has learned this week that his residential program is unwilling to allow him to return and has stopped holding his bed for other individuals. 04/16 - Continue current treatment plan, which includes holiday from olanzapine as a rapport building attempt, and due to concerns that he is more irritable and resistant to treatment - which is obviously not beneficial for his overall condition. - Attempted to communicate with the patient today via written/printed text - will add addendum to this note if patient was willing to complete the sheet and respond to questions 04/21 -Patient remains uncooperative and unwilling to participate in interviews, but has been out of his room more and attending some groups. He remains unwilling to discuss treatment options, including antipsychotic medication. 04/22 - Patient remains unwilling for medications, but is interacting with peers appropriately and attending groups. Will try discontinuing private room and placing him with a roommate, is perhaps increased socialization will be therapeutic for him. 04/23 -no change, patient still unwilling for medications(other than marijuana and benzos) 04/24 -The patient remains angry, suspicious, and largely uncommunicative. He spoke briefly with the attending psychiatrist today in order to request privileges to go outdoors with staff, and was able to cooperate with a fresh air break, but subsequently was angry, bumptious, and willing to cooperate with assessments. 04/25 - Valium 5mg dose yesterday appeared to lead to some disinhibited verbally agitated behavior, with the Valium dose being discontinued following that one dose. Pt is fixated on Valium and on temazepam. refusal to take other medications with. Handling a roommate decently currently. Pt refusing to attend groups. Limited engagement with peers and staff occurring. no change to plan today 04/26 no change to plan today 04/27 -The patient cooperated with an interview today after several weeks of flatly refusing, sometimes rudely refusing to speak to providers. Today, the patient not voiced any delusional material and was able to specifically answer questions regarding perceptual disturbances. 04/28 -no change. 04/29 -start ziprasidone 20 mg twice daily with meals. Reviewed risks, benefits and common side effects including sedation and the need to take with food. 04/30 maintained ziprasidone at current dose today given pt's tendency to refuse medications mikey if notice any s/e, considering raising dose tomorrow 05/01 -Based on the patient's behavior today there seems to be no evidence that the patient is enjoying any particular benefit from ziprasidone. To the contrary, he may have become more bumptious and withdrawn. My recommendation is that we continue to observe him on ziprasidone 20 mg twice a day before increasing his dose further, possibly over the weekend. 05/02 -continue current medication and consider dose increase next week. It is likely that it will take weeks to show benefit from antipsychotic medication given the severity and chronicity of his symptoms, and his history of treatment resistance. He would be a good candidate for clozapine, but has never been willing to consider it. 05/03 -increase ziprasidone to 40 mg twice daily with food. Continue to encourage group attendance. 05/04 - Continue recently increased dose of ziprasidone 40mg BID with food 05/05 - Continue as above; limited change in presentation at this time 05/06 - Pt agreeable to titrating ziprasidone to 60mg BID, starting with this evening's dose. - Is superficially cooperative with conversation, but remains resistant to unit programming and more in-depth interactions with staff - Continues to be unable/unwilling to discuss status of delusional beliefs; however, appear to be ongoing as patient has reported that he is to be discharge, that there is a court order for him to leave, and that he has an apartment secured to move into - despite not having contact with individuals other than his porter sample case (2) Substance abuse: 02/25 - Pt has reported history of substance abuse, and recommendation has consistently been for avoidance of substances with significant abuse potential. - PDMP queried - most recent prescriptions below - lorazepam 0.5mg #60 tabs for 30 day supply - Dr. Alves - filled 02/12/2019 - alprazolam 0.5mg #90 tabs for 30 day supply - Dr. Lopez - filled 01/16/2019 - temazepam 30mg #30 caps for 30 day supply - Dr. Lopez - filled 01/16/2019 - Will continue lorazepam 0.5mg BID prn on admission, as only medication that is seemingly active - toxicology screen is negative for benzodiazepines, which questions if he has been taking the medication appropriately - Ideally will taper and discontinue the lorazepam, as recommendation remains that substances with abuse potential be avoided 02/26 -The patient's outpatient providers, during a meeting this morning, report that the patient tends to successfully convince physicians to prescribe benzodiazepines for him and that, in the past, he has abused him to the degree that he is practically obtunded. 02/27 -A repeat check of the PDMP reveals that the patient is consistently being prescribed lorazepam 0.5 mg twice daily (number 60/month) by a Dr. Brent Alves. He is also being prescribed alprazolam 0.[address] mg [address] Jeff Lopez, with the most recent previous prescription of alprazolam being on 01/16/[address] Lopez also prescribed temazepam 30 mg capsules #30 on 01/16/2019. According to his residential providers, no temazepam capsules were found among the patient's belongings. His most recent prescription for lorazepam 0.5 mg tablets was filled on 02/12/2019. 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 In the past, he reportedly has used clonazepam and temazepam. -I advised the patient that because of his history of misuse of benzodiazepines we would not be prescribing benzodiazepines during his hospital stay. An as needed order for lorazepam has not been used during hospital stay, and I discontinued the order today. 03/02 - Will need to coordinate care with his PCP and outpatient psychiatrist prior to discharge regarding the above. 03/04 - Charge nurse spoke with the above offices regarding concern for continued benzodiazepine prescriptions - Records will be faxed to their offices on discharge, as all benzodiazepines were discontinued during this hospitalization 03/06 -The patient did not request benzodiazepines and did not complain of anxiety today. I suggested to him that perhaps Abilify is also helping with anxiety in his case, and he responded by saying "perhaps." 03/09 -Today, the patient is insisting that what he needs is "benzodiazepines," and explains that the reason he "needs" benzodiazepines is that he has "benzodiazepine receptors," and that he is the only medications that work. He is unable to process warnings about the risks of benzodiazepines in the elderly, including increased risk of falls and mortality. Clearly, the patient is seeking benzodiazepines and has no insight into the associated risks. He also insists that he has never had trouble with benzodiazepines in the past, although there is well-documented of this. 03/10 -Today, the patient repeated his insistence that he needs benzodiazepines and that benzodiazepines are the only medications that work because he has "benzodiazepine receptors." After being told that everyone has central nervous system receptors to which benzodiazepines may attach, he replied, "That may be, but some of people need to have benzodiazepines forearm benzodiazepine receptors. 03/12 -Continues to request Benzodiazepines. 03/13 -Requests Valium for his "benzodiazepines receptors." 03/27 -Refuses to cooperate with assessment today, but has recently told staff that he needs "either Valium or Ativan." -The patient apparently has no working insight into his history of abuse of prescription medications (benzodiazepines). 04/15 -The patient has not reference to request for benzodiazepines recently. However, the context is that he has not communicated much of anything directly, a other than the occasional need for self-care items. 04/24 -Today, the patient repeats his request for benzodiazepines, and insists that he is "supposed" to be taking diazepam 10 mg 3 times a day and temazepam for sleep every night. 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 Unfortunately, the exact opposite seems to have occurred. Not only was the patient was uncooperative subsequent to a dose of Valium, he seems to have been disinhibited by it and shouting "get out" or "get away" several times when approached by staff 04/25 - pt focused on seeking temazepam, or Valium 04/27 -The patient does have a history of substance dependence. However, the current plan and expected disposition is for the patient to be transferred to an extended care inpatient psychiatric unit where abuse of prescribed medications is unlikely to occur. Today, the patient calmly requests temazepam and says that he has tried a number of different sleeping pills, but "that is the one that works." The patient is also able to clearly say that he understands that temazepam is physically habituating that there are associated risks associated with temazepam including, but not limited to, a risk of falls, accidents, confusion, and depression. He tells us that at prescribed dosages he has not had any of these problems in the past. -Today, I agreed to a trial of temazepam 15 mg at bedtime, a dose that the patient says has been effective in the past. 04/30 close monitoring of temazepam given above, so far not taken 05/01 -After persistently insisting that he had to have temazepam in order to sleep and that nursing staff reports that he is sleeping through the night are wrong because he tends to rest with his eyes closed, the patient has not ask for temazepam and has not been given temazepam since it was ordered a week ago. The patient declined to explain why he has not ask for it, and refuses to answer questions today as to whether he is sleeping well without. In fact, when asked to explain why he had not taken any after insisting on having a prescribed, he shouted "get the hell out!!." Perhaps the patient has forgotten that it was ordered, but he seemed to remember the day after it was ordered and ask for not asked for it since. Our thought is that he may have somehow incorporated the order for temazepam into his delusional when belief system, based on his rage when asked to explain why he hasn't asked for it. (3) Hypertension: 02/25 - Continue home dose of clonidine 0.1mg qHS 03/01 Watch mildly elevated blood pressures as patient has been refusing clonidine 03/03 - BP normal past two days, and low today 03/10 -The patient's blood pressure today was 136/73. His pulse was 71 03/14 - elevated BP it is not urgent but will need monitored. 03/15 - BP WNL 03/26 - BP continues to be WNL 04/02 - BP remains within normal limits; continue daily vitals per standard admission order set - Will consider acute phase of this problem resolved at this time Risk Factors Assessment Male: Yes : Yes Do You Have Access To A Gun?: No Health Problems: Yes Mental Health Diagnoses: Yes Substance Use Disorders: Yes Protective Factors Assessment [employer] Beliefs: No : No Responsible for Young Children: No Employed: No Stable Relationships: No Supportive Family: No Good Rapport with Provider: No Absence of Any Risk Factors Above: No Interval History Identifying Information SCOTT ROBERTO is a 73-year-old M who currently lives at a [facility] in [place], has a history of schizophrenia, and is known to our unit from several previous admissions, most recently in 09/2016. He was admitted on 02/24/19 16:40 on a 302 involuntary commitment for exacerbation of schizophrenia and heightened paranoia resulting in belief he needed to hide in a dumpster to seek refuge from impending bombings. He was found by [facility] staff and brought to the ED by police, and is on a 304 involuntary commitment as of 03/16/19. 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 Chief Complaint "I'm fine. Just resting." Review of Systems Notes Constitutional: denied Cardiovascular: denied Respiratory: denied Gastrointestinal: denied Neurological: denied Psychiatric: denies symptoms other than stated above Total of at least 10 systems reviewed, pertinent positives as above and in HPI. Sleep Information Total Hours of Sleep: 8.5 Sleep Comments: pt on q-15 minute checks Meal Information Percent Meal Consumed - Breakfast: 80 Percent Meal Consumed - Lunch: 100 Percent Meal Consumed - Dinner: 100 Nutrition Comment: per meal record Subjective Subjective Patient was seen & assessed and interval progress reviewed with treatment team. Staff report there has been little change in the patient's presentation. He has been cooperative with medications, but continues to refuse group participation and isolates in his room. Attempts by staff to engage patient are reportedly dismissed. Pt was seen today to assess progress since admission. Pt states he is "fine" today. He reports yesterday was "fine", and continues to respond to follow-up questions with "fine" as well. Pt states he has no topics he would like to discuss, other than the possibility of requesting there be sherbert delivered to the freezer by the kitchen for him to have as snacks throughout the day. Pt was asked how his mood has been over the past few days, and responds by saying "it's fine." He denies any acute concerns. We discussed optimizing his dose of ziprasidone and he was agreeable to titrating his dose to 60mg BID. Pt denies side effects with the medication thus far. Pt denies other needs or activities he would like to see done in groups - as an attempt to get him more engaged and out of his room. Pt was encouraged to consider if there are activities he would enjoy doing on the unit, and to report to staff with other needs or concerns. He is agreeable with this. Physical Exam Psychiatric Orientation: alert, cooperative (superficially) and + guarded (tolerating only superficial conversation topics) Apperance: appropriately dressed (casually, wearing a long-sleeve shirt, tight cotton pants, and sandals) and appropriately groomed Eye Contact: good eye contact Motor Behavior: steady gait and station and no abnormal motor movements Speech: normal rate/rhythm/volume of speech (mildly more spontaneous today, responses remain brief ) Affect: + flat affect Mood: no depressed mood ("It's fine") Thought Process: goal directed thought process and + concrete thought process Thought Content: + delusions (has been verbalizing hints of delusional thought content to staff) Remains resistant to in-depth conversations/counseling with staff - has made brief statements regarding belief that he has a court order for discharge, that he has an apartment recently secured, and has presented to the nurses station requesting his belongings with belief he is being discharged. He does not tolerate deeper discussions regarding his thought content. Suicidal Thoughts: denies suicidal thoughts Cognition: attention grossly intact and language grossly intact Estimated Intelligence: consistent with education level Insight: + impaired insight Judgement: + impaired judgement Vital Signs (Past 24 Hours) Last Vital Signs Temp 36.7 C 05/06/19 06:44 Pulse 72 05/06/19 06:45 Resp 18 05/06/19 06:44 BP 136/78 05/06/19 06:45 Pulse Ox 96 02/24/19 08:10 Results & Data Current Inpatient Medications Current Inpatient Medications: Current Inpatient Medications Acetaminophen (Tylenol) 650 mg PO Q4H PRN PRN Reason: Headache or Minor Fever Stop: 05/23/19 08:14 Al Hydrox/Mg Hydrox/Simethicone (Maalox) 30 ml PO Q4H PRN PRN Reason: GI Upset Stop: 05/23/19 08:14 Benztropine Mesylate (Cogentin) 0.5 mg PO BID PRN PRN Reason: dystonia Stop: 05/23/19 08:14 Bismuth Subsalicylate (Kaopectate) 15 ml PO PRN PRN PRN Reason: Loose Stool Stop: 05/23/19 08:14 Clonidine HCl (Catapres) 0.1 mg PO HS MAG Stop: 05/23/19 21:59 Last Admin: 05/05/19 20:56 Dose: Not Given Documented by: Cyanocobalamin (Vitamin B-12) 500 mcg PO DAILY MAG Stop: 05/23/19 08:59 Last Admin: 05/06/19 08:51 Dose: 500 mcg Documented by: Hydroxyzine HCl (Vistaril) 25 mg PO Q4H PRN PRN Reason: Anxiety Stop: 05/23/19 08:14 Hydroxyzine HCl (Vistaril) 50 mg PO HSZ PRN PRN Reason: Insomnia Stop: 05/23/19 08:14 Magnesium Hydroxide (Milk Of Magnesia) 30 ml PO DAILY PRN PRN Reason: Heartburn Stop: 05/23/19 08:19 Magnesium Oxide (Mag-Ox) 400 mg PO DAILY [facility] Stop: 05/23/19 08:59 Last Admin: 05/06/19 08:51 Dose: 400 mg Documented by: Miscellaneous (Remove Nicoderm Patch) 1 ea N/A HS [facility] Stop: 05/23/19 21:59 Last Admin: 05/05/19 20:56 Dose: Not Given Documented by: Multivitamins (Multivitamin Tab) 1 tab PO DAILY [facility] Stop: 05/23/19 08:59 Last Admin: 05/06/19 08:51 Dose: 1 tab Documented by: Nicotine (Nicoderm Cq) 14 mg TD QAM [facility] Stop: 05/23/19 08:59 Last Admin: 05/06/19 08:51 Dose: Not Given Documented by: Olanzapine (Zyprexa) 10 mg IM HS PRN PRN Reason: Undecided Stop: 05/23/19 08:19 Pyridoxine HCl (Vitamin B-6) 100 mg PO DAILY [facility] Stop: 05/23/19 08:59 Last Admin: 05/06/19 08:51 Dose: 100 mg Documented by: Sodium Chloride (Saline Nasal) 1 - 2 sprays NA PRN PRN PRN Reason: Nasal Dryness/Congestion Stop: 05/23/19 08:19 Ziprasidone (Geodon) 40 mg PO BIDM MAG Stop: 06/02/19 17:44 Last Admin: 05/06/19 08:51 Dose: 40 mg Documented by: Mental Health & Subst Abuse Tx Therapist Name of Therapist: Denies Beamster Name of Beamster: Shruti Lopez Phone Number for Beamster: Case Management Appointment Comment: [phone], [place] [address] Post Discharge Appointments Primary Care Physician Name Of Family Doctor: Dr. Lopez Contact Information Discharge Discharge Address: [address] [place] [address], [place] [address] CPT Code CPT Code 78159 (1) Schizophrenia Schizophrenia type: paranoid schizophrenia Qualified Code(s): F20.0 - Paranoid schizophrenia (2) Hypertension Hypertension type: essential hypertension Qualified Code(s): I10 - Essential (primary) hypertension
[2019-05-06] MEDS: cloNIDine HCL 0.1 MG TAB PO SCH (20:39)
[2019-05-07] MEDS: MULTIVITAMIN TAB PO SCH (08:11)
[2019-05-07] MEDS: PYRIDOXINE HCL 50 MG TAB PO SCH (08:11)
[2019-05-07] MEDS: NICOTINE 14 MG/24 HR PATCH TD SCH (08:11)
[2019-05-07] MEDS: CYANOCOBALAMIN 500 MCG TABLET (VITAMIN B-12) PO SCH (08:11)
[2019-05-07] MEDS: MAGNESIUM OXIDE 400 MG TAB PO SCH (08:11)
[2019-05-07] MEDS: ZIPRASIDONE HCL 20 MG CAP PO SCH ×2 (08:37→17:29)
--- NOTE | 2019-05-07 11:09 | Psychiatric Progress Note ---
Date of Service May 07, 2019 Impression / Recommendations Impression Patient remains poorly engaged in treatment, refusing most groups. He briefly had a roommate, but was placed back in a private room due to disorganized behavior, after multiple episodes of going into other patient's rooms and staring at them, once wearing nothing but a towel. His fpc bed was relinquished due to ongoing psychosis and unwillingness to engage in treatment, and [facility], we still do not have a bed date. He has been refusing antipsychotic medications and had not taken anything over a 2 week period, but 04/29 agreed to a trial of ziprasidone, which he is tolerating well, and has been titrated to 60mg BID. Given the chronicity and severity of his condition, it may take weeks to see benefit from medication. The plan is for the patient to be transferred for long-term psychiatric hospitalization, given his inability to cooperate with treatment, given his inability to attend his own physical needs without the availability of the full spectrum of psychiatric services at the inpatient level of care, and ongoing psychosis with auditory hallucinations and paranoia. (1) Schizophrenia: 02/25 - Continue home medication regimen - as refusing offerings of his antipsychotic, will likely require olanzapine IM (or alternative agent) over objection, given clear evidence of paranoia and delusional thought process - previously stabilized on this medication - Pt agreeable to taking all other medications, with exception of antipsychotic as mentioned above - Admitted to a locked inpatient behavioral health unit, on q15 minute safety checks - Encourage medication initiation/adjustments as indicated - Encourage participation in group and recreational therapies - Gather collateral information from outpatient providers and fpc staff - Suggest family meeting to involve outpatient supports in safety planning - Reschedule appropriate aftercare appointments 02/26 -Patient indicates willingness to sign a release for the [facility], will get collateral from their staff. -File for 303 involuntary commitment to be held tomorrow. -Recommend medications over objection, with an IM Zyprexa backup for refusal of oral medication. Involve outpatient treatment team to discuss ways to improve stability and compliance; consider long-acting injectable antipsychotic. -Order fasting labs for monitoring on an atypical antipsychotic once patient is more cooperative. 02/27 -The patient was retrained at his involuntary commitment hearing (303) this morning. -He has continuously and consistently refused psychiatric medications to date. However, today, when I explained that that a option that might become necessary in his case is medication over objection, and an intramuscular form, the patient said that he understood and that he would try medications that I prescribe. His initial preference would be olanzapine, but because olanzapine is not available in a long acting depot form, we would first like to try aripiprazole. He indicates that he is taken aripiprazole in the past and has been able to tolerate it, although he does not believe that it has been pa rticularly helpful. -A trial dose of aripiprazole 15 mg by mouth, as a one-time dose, has been ordered and he assessed for efficacy. 02/28 -Appears to be tolerating initiation of Abilify so far. Remains delusional, paranoid. May consider further titration tomorrow -Aricept discontinued at patient's request on 02/27/2019. The medication has not been demonstrated to be efficacious for cognitive impairment associated with long-standing schizophrenia however we should be vigilant for slowing of mentation following discontinuation. 03/01 Patient fixated and irrational regarding access to clothing item as above today. Hospital environment becoming incorporated and delusions. Consider possibility that the aripiprazole is contributing to activation. We will increase to 20 mg tomorrow and also start Risperdal 1 mg p.o. twice daily as as needed. 03/02 - Continue with aripiprazole at 20mg daily, consider need for further titration - if tolerating and effective, eventual plan will be for conversion to Abilify Maintena - Pt has not yet utilized risperidone 03/03 - Increase aripiprazole to 25mg (equivalent to 30mg pill) and change to liquid formulation to decrease risk of cheeking/nonadherence, as patient does not believe he needs medication and had been noncompliant prior to hospitalization. - Fasting glucose and lipid profile ordered for tomorrow for monitoring on an atypical antipsychotic. - Private room due to psychosis, agitation, and inappropriate disrobing/sexual behavior. - Meeting with BCM and CRR staff when patient able to tolerate. 03/04 - Continue aripiprazole 25mg liquid (30mg pill equivalent) and continue to observe for improvement in thought process/content - consider conversion to Maintena if effective, versus trial of another agent if improvement remains limited - Fasting labs reviewed - all values WNL - Continue medically necessary private room - Request meeting with CRR staff, in order to obtain details about patient's proximity to baseline 03/05 -Patient refusing liquid aripiprazole, but agrees to take the pill: Ordered 30 mg daily. -Schedule meeting with his high risk case manager, CRR and psych rehab staff. Consider involuntary outpatient commitment at the time of discharge. 03/06 -The patient has improved in that he is more reality based at this point. He continues to harbor fixed, systematized delusions, but is generally able to focus on reality based topics. -Although the patient tells me that he does not feel that aripiprazole has been effective, he is able to accept my opinion in the opinion of the staff that he has improved in response to aripiprazole. -The patient's main objection to aripiprazole oral solution is that he does not like the way it tastes, and within this context, he tells us that he is willing to accept Abilify Maintenaand requests that it be injected into his buttock. Abilify Maintena 300 mg IM ordered, and oral Abilify discontinued. We will resume oral Abilify if the patient subsequently changes his mind and refuses the injection. 03/07 resuming Abilify oral given his refusal of FARAH form of Abilify 03/08 is taking Abilify po form but refusing Abilify Maintena form. advise close monitoring for potential of checking given pt's tendency to not want to take medications. 03/09 -The patient is flatly refusing to take aripiprazole in the form of Abilify Maintena. He is also been hesitant to take oral Abilify, but has been doing so. -The patient's lack of cooperation is thought possibly to be related to an un-expressed desire to not be discharged back to the community. He told me to day that he left his meeting with his community providers after a few seconds because "just the side of them made me extremely anxious. My pulse elevated to 140." Later, he told me that he was still anxious about it and his pulse was "still around 130." The patient allowed me to take his pulse, and it was approximately 76. At that point he said, "did I say pulse? I meant systolic blood pressure." And when I pointed out that his systolic blood pressure of 130 is not considered to be a particular concern, he said "I mean diastolic." -Our hope had been that the patient would agree to accept a Depo form of medication. He was refusing Haldol Decanoate because of various side effects. Risperidone constant was ruled out as a first-line Depo medication because of the frequency of administration (the patient tends to get into power struggles over medications) and because he says that he is sensitive to "big needles." Invega would be an option, but currently the patient is being so uncooperative that our concern would be that he would cheek the oral tablets that we would have to give him first. Accordingly, the new strategy will be to discontinue Abilify, and resume olanzapine with olanzapine IM over objection if necessary. We will begin the olanzapine Zydis 20 mg at bedtime 03/10 -The patient took the prescribed dose of olanzapine Zydis 20 mg at bedtime last night. Today, he tells me that it "did not help at all." However, staff report that he has been somewhat more agreeable, more pleasant, and less paranoid today. -As he has with other providers, today he told me that I should have given him olanzapine 5 mg "to start", and I explained that he was already on olanzapine 20 mg when he came into the hospital and we know that he is able to tolerate that dose. He tells me that he did, in fact tolerate the dose and is not aware of any side effects, but, somewhat illogically, insisted that the dose was "too high for a starting dose." 03/11 - Continue current medication regimen at this time - olanzapine 20mg daily - Encourage participation in the milieu and in group programming as tolerated 03/12 -Continue current medication regimen. The patient's condition has not yet improved. -The patient does participate in select groups, but often tends to be disruptive. 03/13 -Today, the patient seems to be somewhat more cooperative and less frankly delusional. It was possible to engage in a mostly reality based conversation for 5 or 10 minutes at a time. Also, although he was unhappy with me when I refused to provide him with a dose of Valium for anxiety, he was able to remain pleasant and calm at this time, did not storm from the room." 03/14 and 03/15 -no change in medication will work on therapeutic alliance given patient is not participating 03/16 -304 involuntary commitment granted. -Patient remains completely uncooperative with treatment, refused his Zyprexa Zydis last evening, but then ultimately took it before he received the injection. I have a high suspicion for cheeking of antipsychotic medication, and we will continue to be vigilant with mouth checks, and work towards a long- acting injectable. 03/17 -Patient has been on Zyprexa 20 mg at bedtime for 1 week, with limited response. He is refusing to discuss other medication options. Per records, he has been prescribed up to 30 mg olanzapine in the past, so will increase his dose to this previously tolerated dose, as it is 1 of the few medications he has been willing to take. Continue IM backup for refusal, and Zyprexa Zydis formulation to decrease risk of cheeking. He is not compliant with mouth checks, but have asked staff to try to observe him for 10 minutes after taking the Zydis to ensure he is not spitting it out before it dissolves. 03/18 -Continue Zyprexa Zydis 30 mg at bedtime with IM backup. Consider switch to a different medication (?oral paliperidone with IM backup) if irritability and agitation continues. He has tried virtually every atypical antipsychotic and reports none of them were effective (although some trials were short due to nonadherence) and has a history of dystonia on haloperidol. Clozapine would be a reasonable choice, but he has been unwilling to even discuss medication options. -Consider some component of cognitive decline which could be contributing to his worsening presentation and will need to be monitored and worked up further once he is more psychiatrically stable. -Refer to [facility] in the event that he does not improve and long-term inpatient treatment is needed. 03/19 - Proceed with [facility] referral. 03/20 - Continue current medication regimen; patient refused EKG and CXR yesterday - refused again today - Continue attempts to gather information to make a referral to [facility] 03/23 - Proceed with [facility] referral - patient has refused EKG and CXR for multiple attempts. We will send most recent tests available - Continue current medication regimen at this time 03/24 -Attempted to hold diversion meeting with his outpatient [facility], fpc director, and the [facility]ID; patient refused to attend or participate in the meeting. 03/25 - 03/26 - Continue treatment plan as above - no change in patient's condition and he remains unwilling to participate meaningfully in treatment - Continue with [facility] referral 03/27 -The patient has been informed that the plan at this point is to transfer him to [facility] for long-term inpatient psychiatric treatment, given his refusal to adhere with treatment and his associated behaviors in the community when not adherent with psychiatric treatment. -The patient continues to refuse mouth checks after given dosages of Zyprexa Zydis, and there is some question regarding whether he is actually ingesting this medication. He also would not cooperate with laboratory testing. -There has been a question regarding the patient's cognitive functions, and prior to admission he had been taking Aricept. When he does cooperate with this, I have not seen evidence of any substantial cognitive impairment. He may have mild cognitive impairment, but does not fully cooperate with formal cognitive assessment. He easily recalls the names of his providers, the names of the medications he is taking, the names of the various infectious agents that he believes are causing some of his psychiatric symptoms, the names of certain chemicals that he believes will rid him of the reference to infections, and is able to discuss current events such as recent news items. His assertion that he wants to return to his apartment in the community seems belied by his steadfast refusal to cooperate with those interventions I would make it possible for him to return, and there is some suspicion that although the patient remains floridly psychotic he may also be intentionally sabotaging discharge. 03/28 - 03/30 -There is been no exchange specialist the past 2 weeks, and [facility]. 03/31 - Continue current medication regimen - Pt briefly verbalized willingness for FARAH, but was not agreeable to medication adjustments to allow for this to be possible - If he should change his mind; recommendation is for trial of Invega orally to establish tolerability, then consideration for Invega Sustenna - unwilling for this today 04/01 - 04/03 - Continue current medication regimen - Continues to refuse FARAH, will continue discussion daily as this is the reported preference of his CRR 04/04 -Questionable positive PPD measuring 13 mm but history of confinement places him at higher risk. Patient refused chest x-ray today but we will reapproach. No active symptoms of infection. Order for sputum culture and smear today for confirmation. 04/05 -PPD now appears negative. Would suggest follow through with sputum smear and culture for confirmation as previously ordered -Continue treatment plan as above 04/06 - PPD reportedly negative, patient unable to follow-up with sputum smear - therefore discontinued - Continue medication regimen as above - unwilling to discuss conversion to an FARAH - Meeting today with representation from [facility] to discuss discharge planning 04/07 - Continue medication regimen as above - remains unwilling to discuss changes - Additional meeting with CRR and CM scheduled for next week - We have been regularly assessing patient's condition and appropriateness to go outside since his 30-day treatment plan review. As patient continues to be unwilling to participate in a meaningful conversation with providers regarding his condition, we continue to be unable to determine if he is appropriate to be taken off the unit - therefore will await ability to discuss the topic in a meaningful way prior to making this determination. Will continue regular evaluation. 04/08 - 04/12 - Continue current medication regimen, as patient unwilling to discuss changes - Attempted again to determine if appropriate to go outside, patient unwilli ng to participate in conversation despite being told the goal of allowing him to go outside - Meeting with CM and CRR director scheduled for 04/13 at 1030 04/13 - Continue Zyprexa 30mg daily - unwilling to engage in conversation to discuss changes - Remains unwilling to engage in conversation to determine if he is appropriate to go outside, he has been made aware this is a possibility for him - Meeting for attempted diversion resulted in decision to no longer hold patient's CRR bed, [facility] admission is supported based on little to no improvement since admission and limited willingness to engage in conversations regarding medication adjustments - We have been asked to attempt to get a QuantiFERON-TB Gold Plus test, despite negative PPD reading within acceptable timeframe - pt unwilling to engage in conversation to obtain consent, further indicating why long-term inpatient psychiatric hospitalization is necessary. Will continue to attempt to gain consent for this testing to be completed 04/15 -The patient is slightly more communicative today and that he does answer at least one question which was whether he would be in agreement if we offered him a drug holiday from olanzapine. His response was in the affirmative.. He also said "thank you." -The patient continues to appear suspicious and he clearly is angry at and unwilling to cooperate with staff. He is particularly bumptious with individuals who he sees as not fully trained and fully qualified. -The plan remains transfer to the [facility] for long-term psychiatric care. Our hope remains that we will be able to divert the patient from the [facility], but the patient, as noted above, remains uncommunicative and resistant. Perhaps contributing to the patient's obvious anger and distress is the fact that he has learned this week that his residential program is unwilling to allow him to return and has stopped holding his bed for other individuals. 04/16 - Continue current treatment plan, which includes holiday from olanzapine as a rapport building attempt, and due to concerns that he is more irritable and resistant to treatment - which is obviously not beneficial for his overall condition. - Attempted to communicate with the patient today via written/printed text - will add addendum to this note if patient was willing to complete the sheet and respond to questions 04/21 -Patient remains uncooperative and unwilling to participate in interviews, but has been out of his room more and attending some groups. He remains unwilling to discuss treatment options, including antipsychotic medication. 04/22 - Patient remains unwilling for medications, but is interacting with peers appropriately and attending groups. Will try discontinuing private room and placing him with a roommate, is perhaps increased socialization will be therapeutic for him. 04/23 -no change, patient still unwilling for medications(other than marijuana and benzos) 04/24 -The patient remains angry, suspicious, and largely uncommunicative. He spoke briefly with the attending psychiatrist today in order to request privileges to go outdoors with staff, and was able to cooperate with a fresh air break, but subsequently was angry, bumptious, and willing to cooperate with assessments. 04/25 - Valium 5mg dose yesterday appeared to lead to some disinhibited verbally agitated behavior, with the Valium dose being discontinued following that one dose. Pt is fixated on Valium and on temazepam. refusal to take other medications with. Handling a roommate decently currently. Pt refusing to attend groups. Limited engagement with peers and staff occurring. no change to plan today 04/26 no change to plan today 04/27 -The patient cooperated with an interview today after several weeks of flatly refusing, sometimes rudely refusing to speak to providers. Today, the patient not voiced any delusional material and was able to specifically answer questions regarding perceptual disturbances. 04/28 -no change. 04/29 -start ziprasidone 20 mg twice daily with meals. Reviewed risks, benefits and common side effects including sedation and the need to take with food. 04/30 maintained ziprasidone at current dose today given pt's tendency to refuse medications mikey if notice any s/e, considering raising dose tomorrow 05/01 -Based on the patient's behavior today there seems to be no evidence that the patient is enjoying any particular benefit from ziprasidone. To the contrary, he may have become more bumptious and withdrawn. My recommendation is that we continue to observe him on ziprasidone 20 mg twice a day before increasing his dose further, possibly over the weekend. 05/02 -continue current medication and consider dose increase next week. It is likely that it will take weeks to show benefit from antipsychotic medication given the severity and chronicity of his symptoms, and his history of treatment resistance. He would be a good candidate for clozapine, but has never been willing to consider it. 05/03 -increase ziprasidone to 40 mg twice daily with food. Continue to encourage group attendance. 05/04 - Continue recently increased dose of ziprasidone 40mg BID with food 05/05 - Continue as above; limited change in presentation at this time 05/06 - Pt agreeable to titrating ziprasidone to 60mg BID, starting with this evening's dose. - Is superficially cooperative with conversation, but remains resistant to unit programming and more in-depth interactions with staff - Continues to be unable/unwilling to discuss status of delusional beliefs; however, appear to be ongoing as patient has reported that he is to be discharge, that there is a court order for him to leave, and that he has an apartment secured to move into - despite not having contact with individuals other than his high risk case manager 05/07 - Continue as above, limited change in presentation (2) Substance abuse: 02/25 - Pt has reported history of substance abuse, and recommendation has con sistently been for avoidance of substances with significant abuse potential. - PDMP queried - most recent prescriptions below - lorazepam 0.5mg #60 tabs for 30 day supply - Dr. Alves - filled 02/12 - alprazolam 0.5mg #90 tabs for 30 day supply - Dr. Lopez - filled 01/16/2019 - temazepam 30mg #30 caps for 30 day supply - Dr. Lopez - filled 01/16/2019 - Will continue lorazepam 0.5mg BID prn on admission, as only medication that is seemingly active - toxicology screen is negative for benzodiazepines, which questions if he has been taking the medication appropriately - Ideally will taper and discontinue the lorazepam, as recommendation remains that substances with abuse potential be avoided 02/26 -The patient's outpatient providers, during a meeting this morning, report that the patient tends to successfully convince physicians to prescribe benzodiazepines for him and that, in the past, he has abused him to the degree that he is practically obtunded. 02/27 -A repeat check of the PDMP reveals that the patient is consistently being prescribed lorazepam 0.5 mg twice daily (number 60/month) by a Dr. Brent Alves. He is also being prescribed alprazolam 0.[address] mg [address] Jeff Lopez, with the most recent previous prescription of alprazolam being on 01/16/[address] Lopez also prescribed temazepam 30 mg capsules #30 on 01/16/2019. According to his residential providers, no temazepam capsules were found among the patient's belongings. His most recent prescription for lorazepam 0.5 mg tablets was filled on 02/12/2019. 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 In the past, he reportedly has used clonazepam and temazepam. -I advised the patient that because of his history of misuse of benzodiazepines we would not be prescribing benzodiazepines during his hospital stay. An as needed order for lorazepam has not been used during hospital stay, and I discontinued the order today. 03/02 - Will need to coordinate care with his PCP and outpatient psychiatrist prior to discharge regarding the above. 03/04 - Charge nurse spoke with the above offices regarding concern for continued benzodiazepine prescriptions - Records will be faxed to their offices on discharge, as all benzodiazepines were discontinued during this hospitalization 03/06 -The patient did not request benzodiazepines and did not complain of anxiety today. I suggested to him that perhaps Abilify is also helping with anxiety in his case, and he responded by saying "perhaps." 03/09 -Today, the patient is insisting that what he needs is "benzodiazepines," and explains that the reason he "needs" benzodiazepines is that he has "benzodiazepine receptors," and that he is the only medications that work. He is unable to process warnings about the risks of benzodiazepines in the elderly, including increased risk of falls and mortality. Clearly, the patient is seeking benzodiazepines and has no insight into the associated risks. He also insists that he has never had trouble with benzodiazepines in the past, although there is well-documented of this. 03/10 -Today, the patient repeated his insistence that he needs benzodiazepines and that benzodiazepines are the only medications that work because he has "benzodiazepine receptors." After being told that everyone has central nervous system receptors to which benzodiazepines may attach, he replied, "That may be, but some of people need to have benzodiazepines forearm benzodiazepine recepto rs. 03/12 -Continues to request Benzodiazepines. 03/13 -Requests Valium for his "benzodiazepines receptors." 03/27 -Refuses to cooperate with assessment today, but has recently told staff that he needs "either Valium or Ativan." -The patient apparently has no working insight into his history of abuse of prescription medications (benzodiazepines). 04/15 -The patient has not reference to request for benzodiazepines recently. However, the context is that he has not communicated much of anything directly, a other than the occasional need for self-care items. 04/24 -Today, the patient repeats his request for benzodiazepines, and insists that he is "supposed" to be taking diazepam 10 mg 3 times a day and temazepam for sleep every night. 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 Unfortunately, the exact opposite seems to have occurred. Not only was the patient was uncooperative subsequent to a dose of Valium, he seems to have been disinhibited by it and shouting "get out" or "get away" several times when approached by staff 04/25 - pt focused on seeking temazepam, or Valium 04/27 -The patient does have a history of substance dependence. However, the current plan and expected disposition is for the patient to be transferred to an extended care inpatient psychiatric unit where abuse of prescribed medications is unlikely to occur. Today, the patient calmly requests temazepam and says that he has tried a number of different sleeping pills, but "that is the one that works." The patient is also able to clearly say that he understands that temazepam is physically habituating that there are associated risks associated with temazepam including, but not limited to, a risk of falls, accidents, confusion, and depression. He tells us that at prescribed dosages he has not had any of these problems in the past. -Today, I agreed to a trial of temazepam 15 mg at bedtime, a dose that the patient says has been effective in the past. 04/30 close monitoring of temazepam given above, so far not taken 05/01 -After persistently insisting that he had to have temazepam in order to sleep and that nursing staff reports that he is sleeping through the night are wrong because he tends to rest with his eyes closed, the patient has not ask for temazepam and has not been given temazepam since it was ordered a week ago. The patient declined to explain why he has not ask for it, and refuses to answer questions today as to whether he is sleeping well without. In fact, when asked to explain why he had not taken any after insisting on having a prescribed, he shouted "get the hell out!!." Perhaps the patient has forgotten that it was ordered, but he seemed to remember the day after it was ordered and ask for not asked for it since. Our thought is that he may have somehow incorporated the order for temazepam into his delusional when belief system, based on his rage when asked to explain why he hasn't asked for it. (3) Hypertension: 02/25 - Continue home dose of clonidine 0.1mg qHS 03/01 Watch mildly elevated blood pressures as patient has been refusing clonidine 03/03 - BP normal past two days, and low today 03/10 -The patient's blood pressure today was 136/73. His pulse was 71 03/14 - elevated BP it is not urgent but will need monitored. 03/15 - BP WNL 03/26 - BP continues to be WNL 04/02 - BP remains within normal limits; continue daily vitals per standard admission order set - Will consider acute phase of this problem resolved at this time Risk Factors Assessment Male: Yes : Yes Do You Have Access To A Gun?: No Health Problems: Yes Mental Health Diagnoses: Yes Substance Use Disorders: Yes Protective Factors Assessment Sikh Beliefs: No : No Responsible for Young Children: No Employed: No Stable Relationships: No Supportive Family: No Good Rapport with Provider: No Absence of Any Risk Factors Above: No Interval History Identifying Information SCOTT ROBERTO is a 73-year-old M who currently lives at a [facility] in [place], has a history of schizophrenia, and is known to our unit from several previous admissions, most recently in 09/2016. He was admitted on 02/24/19 16:40 on a 302 involuntary commitment for exacerbation of schizophrenia and heightened paranoia resulting in belief he needed to hide in a dumpster to seek refuge from impending bombings. He was found by [facility] staff and brought to the ED by police, and is on a 304 involuntary commitment as of 03/16/19. He has been referred to [facility] for intermission coordinator treatment. Chief Complaint "I'm fine." Review of Systems Notes Constitutional: denied Cardiovascular: denied Respiratory: denied Gastrointestinal: denied Neurological: denied Psychiatric: denies symptoms other than stated above Total of at least 10 systems reviewed, pertinent positives as above and in HPI. Sleep Information Total Hours of Sleep: 8.25 Sleep Comments: pt on q-15 minute checks Meal Information Percent Meal Consumed - Breakfast: 80 Percent Meal Consumed - Lunch: 100 Percent Meal Consumed - Dinner: 100 Nutrition Comment: per meal record Subjective Subjective Patient was seen & assessed and interval progress reviewed with nursing and social work. Staff reports the patient remains superficially pleasant, willing for brief conversations but not attending group programming. He has not been mentioning a plan to leave the unit in the past day, and elopement risks will be discontinued today. Pt was seen today to assess progress since admission. Pt states he is "fine" today. When asked what he has been doing to keep busy - the patient again states "fine" and then says "nothing." This provider presented concern that the patient has not been engaging in activities, and when asked how the patient has been feeling on the unit he states, "terrible. I don't want to be here." Pt was asked if there were things he would like to help make his stay better, and answers by requesting that this provider give education on the ziprasidone he has been taking. Pt denies auditory or visual hallucinations during his admission. He offers no follow-up questions or concerns after the explanation and declines this provider's offer to get him anything. He denies other needs at this time and is not interested in attending groups today. Physical Exam Psychiatric Orientation: alert, cooperative (superficially) and + guarded Apperance: appropriately dressed and appropriately groomed Eye Contact: good eye contact Motor Behavior: steady gait and station and no abnormal motor movements Speech: normal rate/rhythm/volume of speech (nonspontaneous, brief responses to questions) Affect: + flat affect and + irritable affect (mildly) Mood: no depressed mood (reports feeling "fine") Thought Process: clear/coherent thought process and + concrete thought process Thought Content: no delusions (no delusional thought content verbalized today) Suicidal Thoughts: denies suicidal thoughts Hallucinations: no auditory hallucinations and no visual hallucinations Cognition: attention grossly intact and language grossly intact Estimated Intelligence: consistent with education level Insight: + impaired insight Judgement: + impaired judgement Vital Signs (Past 24 Hours) Last Vital Signs Temp 36.6 C 05/07/19 06:43 Pulse 64 05/07/19 06:44 Resp 18 05/07/19 06:43 BP 117/77 05/07/19 06:44 Pulse Ox 96 02/24/19 08:10 Results & Data Current Inpatient Medications Current Inpatient Medications: Current Inpatient Medications Acetaminophen (Tylenol) 650 mg PO Q4H PRN PRN Reason: Headache or Minor Fever Stop: 05/23/19 08:14 Al Hydrox/Mg Hydrox/Simethicone (Maalox) 30 ml PO Q4H PRN PRN Reason: GI Upset Stop: 05/23/19 08:14 Benztropine Mesylate (Cogentin) 0.5 mg PO BID PRN PRN Reason: dystonia Stop: 05/23/19 08:14 Bismuth Subsalicylate (Kaopectate) 15 ml PO PRN PRN PRN Reason: Loose Stool Stop: 05/23/19 08:14 Clonidine HCl (Catapres) 0.1 mg PO HS MAG Stop: 05/23/19 21:59 Last Admin: 05/06/19 20:39 Dose: 0.1 mg Documented by: Cyanocobalamin (Vitamin B-12) 500 mcg PO DAILY MAG Stop: 05/23/19 08:59 Last Admin: 05/07/19 08:11 Dose: 500 mcg Documented by: Hydroxyzine HCl (Vistaril) 25 mg PO Q4H PRN PRN Reason: Anxiety Stop: 05/23/19 08:14 Hydroxyzine HCl (Vistaril) 50 mg PO HSZ PRN PRN Reason: Insomnia Stop: 05/23/19 08:14 Magnesium Hydroxide (Milk Of Magnesia) 30 ml PO DAILY PRN PRN Reason: Heartburn Stop: 05/23/19 08:19 Magnesium Oxide (Mag-Ox) 400 mg PO DAILY MAG Stop: 05/23/19 08:59 Last Admin: 05/07/19 08:11 Dose: 400 mg Documented by: Miscellaneous (Remove Nicoderm Patch) 1 ea N/A HS MAG Stop: 05/23/19 21:59 Last Admin: 05/06/19 20:40 Dose: Not Given Documented by: Multivitamins (Multivitamin Tab) 1 tab PO DAILY MAG Stop: 05/23/19 08:59 Last Admin: 05/07/19 08:11 Dose: 1 tab Documented by: Nicotine (Nicoderm Cq) 14 mg TD QAM MAG Stop: 05/23/19 08:59 Last Admin: 05/07/19 08:11 Dose: Not Given Documented by: Olanzapine (Zyprexa) 10 mg IM HS PRN PRN Reason: Undecided Stop: 05/23/19 08:19 Pyridoxine HCl (Vitamin B-6) 100 mg PO DAILY MAG Stop: 05/23/19 08:59 Last Admin: 05/07/19 08:11 Dose: 100 mg Documented by: Sodium Chloride ([place] Nasal) 1 - 2 sprays NA PRN PRN PRN Reason: Nasal Dryness/Congestion Stop: 05/23/19 08:19 Ziprasidone (Geodon) 60 mg PO BIDM MAG Stop: 06/05/19 17:44 Last Admin: 05/07/19 08:37 Dose: 60 mg Documented by: Mental Health & Subst Abuse Tx Therapist Name of Therapist: Denies Wire Temperer Name of Wire Temperer: Shruti Lopez Phone Number for Wire Temperer: Case Management Appointment Comment: [phone], [place] [address] Post Discharge Appointments Primary Care Physician Name Of Family Doctor: Dr. Lopez Contact Information Discharge Discharge Address: [address] [place] [address], [place] [address] CPT Code CPT Code 83244 (1) Schizophrenia Schizophrenia type: paranoid schizophrenia Qualified Code(s): F20.0 - Paranoid schizophrenia (2) Hypertension Hypertension type: essential hypertension Qualified Code(s): I10 - Essential (primary) hypertension
[2019-05-07] MEDS: cloNIDine HCL 0.1 MG TAB PO SCH (21:28)
[2019-05-08] MEDS: ZIPRASIDONE HCL 20 MG CAP PO SCH ×2 (08:46→17:19)
[2019-05-08] MEDS: CYANOCOBALAMIN 500 MCG TABLET (VITAMIN B-12) PO SCH (08:46)
[2019-05-08] MEDS: PYRIDOXINE HCL 50 MG TAB PO SCH (08:46)
[2019-05-08] MEDS: MULTIVITAMIN TAB PO SCH (08:46)
[2019-05-08] MEDS: MAGNESIUM OXIDE 400 MG TAB PO SCH (08:46)
[2019-05-08] MEDS: NICOTINE 14 MG/24 HR PATCH TD SCH (08:50)
--- NOTE | 2019-05-08 09:48 | Psychiatric Progress Note ---
Date of Service May 08, 2019 Impression / Recommendations Impression Patient remains poorly engaged in treatment, refusing most groups. He briefly had a roommate, but was placed back in a private room due to disorganized behavior, after multiple episodes of going into other patient's rooms and staring at them, once wearing nothing but a towel. His shelter bed was relinquished due to ongoing psychosis and unwillingness to engage in treatment, and [facility], we still do not have a bed date. He has been refusing antipsychotic medications and had not taken anything over a 2 week period, but 04/29 agreed to a trial of ziprasidone, which he is tolerating well, and has been titrated to 60mg BID. Given the chronicity and severity of his condition, it may take weeks to see benefit from medication. The plan is for the patient to be transferred for long-term psychiatric hospitalization, given his inability to cooperate with treatment, given his inability to attend his own physical needs without the availability of the full spectrum of psychiatric services at the inpatient level of care, and ongoing psychosis with auditory hallucinations and paranoia. (1) Schizophrenia: 02/25 - Continue home medication regimen - as refusing offerings of his antipsychotic, will likely require olanzapine IM (or alternative agent) over objection, given clear evidence of paranoia and delusional thought process - previously stabilized on this medication - Pt agreeable to taking all other medications, with exception of antipsychotic as mentioned above - Admitted to a locked inpatient behavioral health unit, on q15 minute safety checks - Encourage medication initiation/adjustments as indicated - Encourage participation in group and recreational therapies - Gather collateral information from outpatient providers and shelter staff - Suggest family meeting to involve outpatient supports in safety planning - Reschedule appropriate aftercare appointments 02/26 -Patient indicates willingness to sign a release for the [facility], will get collateral from their staff. -File for 303 involuntary commitment to be held tomorrow. -Recommend medications over objection, with an IM Zyprexa backup for refusal of oral medication. Involve outpatient treatment team to discuss ways to improve stability and compliance; consider long-acting injectable antipsychotic. -Order fasting labs for monitoring on an atypical antipsychotic once patient is more cooperative. 02/27 -The patient was retrained at his involuntary commitment hearing (303) this morning. -He has continuously and consistently refused psychiatric medications to date. However, today, when I explained that that a option that might become necessary in his case is medication over objection, and an intramuscular form, the patient said that he understood and that he would try medications that I prescribe. His initial preference would be olanzapine, but because olanzapine is not available in a long acting depot form, we would first like to try aripiprazole. He indicates that he is taken aripiprazole in the past and has been able to tolerate it, although he does not believe that it has been pa rticularly helpful. -A trial dose of aripiprazole 15 mg by mouth, as a one-time dose, has been ordered and he assessed for efficacy. 02/28 -Appears to be tolerating initiation of Abilify so far. Remains delusional, paranoid. May consider further titration tomorrow -Aricept discontinued at patient's request on 02/27/2019. The medication has not been demonstrated to be efficacious for cognitive impairment associated with long-standing schizophrenia however we should be vigilant for slowing of mentation following discontinuation. 03/01 Patient fixated and irrational regarding access to clothing item as above today. Hospital environment becoming incorporated and delusions. Consider possibility that the aripiprazole is contributing to activation. We will increase to 20 mg tomorrow and also start Risperdal 1 mg p.o. twice daily as as needed. 03/02 - Continue with aripiprazole at 20mg daily, consider need for further titration - if tolerating and effective, eventual plan will be for conversion to Abilify Maintena - Pt has not yet utilized risperidone 03/03 - Increase aripiprazole to 25mg (equivalent to 30mg pill) and change to liquid formulation to decrease risk of cheeking/nonadherence, as patient does not believe he needs medication and had been noncompliant prior to hospitalization. - Fasting glucose and lipid profile ordered for tomorrow for monitoring on an atypical antipsychotic. - Private room due to psychosis, agitation, and inappropriate disrobing/sexual behavior. - Meeting with [facility] and CR[facility] staff when patient able to tolerate. 03/04 - Continue aripiprazole 25mg liquid (30mg pill equivalent) and continue to observe for improvement in thought process/content - consider conversion to Maintena if effective, versus trial of another agent if improvement remains limited - Fasting labs reviewed - all values WNL - Continue medically necessary private room - Request meeting with CRR staff, in order to obtain details about patient's proximity to baseline 03/05 -Patient refusing liquid aripiprazole, but agrees to take the pill: Ordered 30 mg daily. -Schedule meeting with his case advocate, CRR and psych rehab staff. Consider involuntary outpatient commitment at the time of discharge. 03/06 -The patient has improved in that he is more reality based at this point. He continues to harbor fixed, systematized delusions, but is generally able to focus on reality based topics. -Although the patient tells me that he does not feel that aripiprazole has been effective, he is able to accept my opinion in the opinion of the staff that he has improved in response to aripiprazole. -The patient's main objection to aripiprazole oral solution is that he does not like the way it tastes, and within this context, he tells us that he is willing to accept Abilify Maintenaand requests that it be injected into his buttock. Abilify Maintena 300 mg IM ordered, and oral Abilify discontinued. We will resume oral Abilify if the patient subsequently changes his mind and refuses the injection. 03/07 resuming Abilify oral given his refusal of FARAH form of Abilify 03/08 is taking Abilify po form but refusing Abilify Maintena form. advise close monitoring for potential of checking given pt's tendency to not want to take medications. 03/09 -The patient is flatly refusing to take aripiprazole in the form of Abilify Maintena. He is also been hesitant to take oral Abilify, but has been doing so. -The patient's lack of cooperation is thought possibly to be related to an un-expressed desire to not be discharged back to the community. He told me to day that he left his meeting with his community providers after a few seconds because "just the side of them made me extremely anxious. My pulse elevated to 140." Later, he told me that he was still anxious about it and his pulse was "still around 130." The patient allowed me to take his pulse, and it was approximately 76. At that point he said, "did I say pulse? I meant systolic blood pressure." And when I pointed out that his systolic blood pressure of 130 is not considered to be a particular concern, he said "I mean diastolic." -Our hope had been that the patient would agree to accept a Depo form of medication. He was refusing Haldol Decanoate because of various side effects. Risperidone constant was ruled out as a first-line Depo medication because of the frequency of administration (the patient tends to get into power struggles over medications) and because he says that he is sensitive to "big needles." Invega would be an option, but currently the patient is being so uncooperative that our concern would be that he would cheek the oral tablets that we would have to give him first. Accordingly, the new strategy will be to discontinue Abilify, and resume olanzapine with olanzapine IM over objection if necessary. We will begin the olanzapine Zydis 20 mg at bedtime 03/10 -The patient took the prescribed dose of olanzapine Zydis 20 mg at bedtime last night. Today, he tells me that it "did not help at all." However, staff report that he has been somewhat more agreeable, more pleasant, and less paranoid today. -As he has with other providers, today he told me that I should have given him olanzapine 5 mg "to start", and I explained that he was already on olanzapine 20 mg when he came into the hospital and we know that he is able to tolerate that dose. He tells me that he did, in fact tolerate the dose and is not aware of any side effects, but, somewhat illogically, insisted that the dose was "too high for a starting dose." 03/11 - Continue current medication regimen at this time - olanzapine 20mg daily - Encourage participation in the milieu and in group programming as tolerated 03/12 -Continue current medication regimen. The patient's condition has not yet improved. -The patient does participate in select groups, but often tends to be disruptive. 03/13 -Today, the patient seems to be somewhat more cooperative and less frankly delusional. It was possible to engage in a mostly reality based conversation for 5 or 10 minutes at a time. Also, although he was unhappy with me when I refused to provide him with a dose of Valium for anxiety, he was able to remain pleasant and calm at this time, did not storm from the room." 03/14 and 03/15 -no change in medication will work on therapeutic alliance given patient is not participating 03/16 -304 involuntary commitment granted. -Patient remains completely uncooperative with treatment, refused his Zyprexa Zydis last evening, but then ultimately took it before he received the injection. I have a high suspicion for cheeking of antipsychotic medication, and we will continue to be vigilant with mouth checks, and work towards a long- acting injectable. 03/17 -Patient has been on Zyprexa 20 mg at bedtime for 1 week, with limited response. He is refusing to discuss other medication options. Per records, he has been prescribed up to 30 mg olanzapine in the past, so will increase his dose to this previously tolerated dose, as it is 1 of the few medications he has been willing to take. Continue IM backup for refusal, and Zyprexa Zydis formulation to decrease risk of cheeking. He is not compliant with mouth checks, but have asked staff to try to observe him for 10 minutes after taking the Zydis to ensure he is not spitting it out before it dissolves. 03/18 -Continue Zyprexa Zydis 30 mg at bedtime with IM backup. Consider switch to a different medication (?oral paliperidone with IM backup) if irritability and agitation continues. He has tried virtually every atypical antipsychotic and reports none of them were effective (although some trials were short due to nonadherence) and has a history of dystonia on haloperidol. Clozapine would be a reasonable choice, but he has been unwilling to even discuss medication options. -Consider some component of cognitive decline which could be contributing to his worsening presentation and will need to be monitored and worked up further once he is more psychiatrically stable. -Refer to [facility] in the event that he does not improve and long-term inpatient treatment is needed. 03/19 - Proceed with [facility] referral. 03/20 - Continue current medication regimen; patient refused EKG and CXR yesterday - refused again today - Continue attempts to gather information to make a referral to [facility] 03/23 - Proceed with [facility] referral - patient has refused EKG and CXR for multiple attempts. We will send most recent tests available - Continue current medication regimen at this time 03/24 -Attempted to hold diversion meeting with his outpatient [facility], shelter director, and the [facility]; patient refused to attend or participate in the meeting. 03/25 - 03/26 - Continue treatment plan as above - no change in patient's condition and he remains unwilling to participate meaningfully in treatment - Continue with [facility] referral 03/27 -The patient has been informed that the plan at this point is to transfer him to [facility] for long-term inpatient psychiatric treatment, given his refusal to adhere with treatment and his associated behaviors in the community when not adherent with psychiatric treatment. -The patient continues to refuse mouth checks after given dosages of Zyprexa Zydis, and there is some question regarding whether he is actually ingesting this medication. He also would not cooperate with laboratory testing. -There has been a question regarding the patient's cognitive functions, and prior to admission he had been taking Aricept. When he does cooperate with this, I have not seen evidence of any substantial cognitive impairment. He may have mild cognitive impairment, but does not fully cooperate with formal cognitive assessment. He easily recalls the names of his providers, the names of the medications he is taking, the names of the various infectious agents that he believes are causing some of his psychiatric symptoms, the names of certain chemicals that he believes will rid him of the reference to infections, and is able to discuss current events such as recent news items. His assertion that he wants to return to his apartment in the community seems belied by his steadfast refusal to cooperate with those interventions I would make it possible for him to return, and there is some suspicion that although the patient remains floridly psychotic he may also be intentionally sabotaging discharge. 03/28 - 03/30 -There is been no exchange trouble shooter the past 2 weeks, and [facility]. 03/31 - Continue current medication regimen - Pt briefly verbalized willingness for FARAH, but was not agreeable to medication adjustments to allow for this to be possible - If he should change his mind; recommendation is for trial of Invega orally to establish tolerability, then consideration for Invega Sustenna - unwilling for this today 04/01 - 04/03 - Continue current medication regimen - Continues to refuse FARAH, will continue discussion daily as this is the reported preference of his CRR 04/04 -Questionable positive PPD measuring 13 mm but history of confinement places him at higher risk. Patient refused chest x-ray today but we will reapproach. No active symptoms of infection. Order for sputum culture and smear today for confirmation. 04/05 -PPD now appears negative. Would suggest follow through with sputum smear and culture for confirmation as previously ordered -Continue treatment plan as above 04/06 - PPD reportedly negative, patient unable to follow-up with sputum smear - therefore discontinued - Continue medication regimen as above - unwilling to discuss conversion to an FARAH - Meeting today with representation from [facility] to discuss discharge planning 04/07 - Continue medication regimen as above - remains unwilling to discuss changes - Additional meeting with CRR and CM scheduled for next week - We have been regularly assessing patient's condition and appropriateness to go outside since his 30-day treatment plan review. As patient continues to be unwilling to participate in a meaningful conversation with providers regarding his condition, we continue to be unable to determine if he is appropriate to be taken off the unit - therefore will await ability to discuss the topic in a meaningful way prior to making this determination. Will continue regular evaluation. 04/08 - 04/12 - Continue current medication regimen, as patient unwilling to discuss changes - Attempted again to determine if appropriate to go outside, patient unwilli ng to participate in conversation despite being told the goal of allowing him to go outside - Meeting with CM and CRR director scheduled for 04/13 at 1030 04/13 - Continue Zyprexa 30mg daily - unwilling to engage in conversation to discuss changes - Remains unwilling to engage in conversation to determine if he is appropriate to go outside, he has been made aware this is a possibility for him - Meeting for attempted diversion resulted in decision to no longer hold patient's CRR bed, [facility] admission is supported based on little to no improvement since admission and limited willingness to engage in conversations regarding medication adjustments - We have been asked to attempt to get a QuantiFERON-TB Gold Plus test, despite negative PPD reading within acceptable timeframe - pt unwilling to engage in conversation to obtain consent, further indicating why long-term inpatient psychiatric hospitalization is necessary. Will continue to attempt to gain consent for this testing to be completed 04/15 -The patient is slightly more communicative today and that he does answer at least one question which was whether he would be in agreement if we offered him a drug holiday from olanzapine. His response was in the affirmative.. He also said "thank you." -The patient continues to appear suspicious and he clearly is angry at and unwilling to cooperate with staff. He is particularly bumptious with individuals who he sees as not fully trained and fully qualified. -The plan remains transfer to the [facility] for long-term psychiatric care. Our hope remains that we will be able to divert the patient from the [facility], but the patient, as noted above, remains uncommunicative and resistant. Perhaps contributing to the patient's obvious anger and distress is the fact that he has learned this week that his residential program is unwilling to allow him to return and has stopped holding his bed for other individuals. 04/16 - Continue current treatment plan, which includes holiday from olanzapine as a rapport building attempt, and due to concerns that he is more irritable and resistant to treatment - which is obviously not beneficial for his overall condition. - Attempted to communicate with the patient today via written/printed text - will add addendum to this note if patient was willing to complete the sheet and respond to questions 04/21 -Patient remains uncooperative and unwilling to participate in interviews, but has been out of his room more and attending some groups. He remains unwilling to discuss treatment options, including antipsychotic medication. 04/22 - Patient remains unwilling for medications, but is interacting with peers appropriately and attending groups. Will try discontinuing private room and placing him with a roommate, is perhaps increased socialization will be therapeutic for him. 04/23 -no change, patient still unwilling for medications(other than marijuana and benzos) 04/24 -The patient remains angry, suspicious, and largely uncommunicative. He spoke briefly with the attending psychiatrist today in order to request privileges to go outdoors with staff, and was able to cooperate with a fresh air break, but subsequently was angry, bumptious, and willing to cooperate with assessments. 04/25 - Valium 5mg dose yesterday appeared to lead to some disinhibited verbally agitated behavior, with the Valium dose being discontinued following that one dose. Pt is fixated on Valium and on temazepam. refusal to take other medications with. Handling a roommate decently currently. Pt refusing to attend groups. Limited engagement with peers and staff occurring. no change to plan today 04/26 no change to plan today 04/27 -The patient cooperated with an interview today after several weeks of flatly refusing, sometimes rudely refusing to speak to providers. Today, the patient not voiced any delusional material and was able to specifically answer questions regarding perceptual disturbances. 04/28 -no change. 04/29 -start ziprasidone 20 mg twice daily with meals. Reviewed risks, benefits and common side effects including sedation and the need to take with food. 04/30 maintained ziprasidone at current dose today given pt's tendency to refuse medications mikey if notice any s/e, considering raising dose tomorrow 05/01 -Based on the patient's behavior today there seems to be no evidence that the patient is enjoying any particular benefit from ziprasidone. To the contrary, he may have become more bumptious and withdrawn. My recommendation is that we continue to observe him on ziprasidone 20 mg twice a day before increasing his dose further, possibly over the weekend. 05/02 -continue current medication and consider dose increase next week. It is likely that it will take weeks to show benefit from antipsychotic medication given the severity and chronicity of his symptoms, and his history of treatment resistance. He would be a good candidate for clozapine, but has never been willing to consider it. 05/03 -increase ziprasidone to 40 mg twice daily with food. Continue to encourage group attendance. 05/04 - Continue recently increased dose of ziprasidone 40mg BID with food 05/05 - Continue as above; limited change in presentation at this time 05/06 - Pt agreeable to titrating ziprasidone to 60mg BID, starting with this evening's dose. - Is superficially cooperative with conversation, but remains resistant to unit programming and more in-depth interactions with staff - Continues to be unable/unwilling to discuss status of delusional beliefs; however, appear to be ongoing as patient has reported that he is to be discharge, that there is a court order for him to leave, and that he has an apartment secured to move into - despite not having contact with individuals other than his case advocate 05/07 - Continue as above, limited change in presentation 05/08 - Continue as above, consider need for further titration of ziprasidone - Limited change in presentation, but has been superficially pleasant (2) Substance abuse: 02/25 - Pt has reported history of substance abuse, and recommendation has consistently been for avoidance of substances with significant abuse potential. - PDMP queried - most recent prescriptions below - lorazepam 0.5mg #60 tabs for 30 day supply - Dr. Alves - filled 02/12/2019 - alprazolam 0.5mg #90 tabs for 30 day supply - Dr. Lopez - filled 01/16/2019 - temazepam 30mg #30 caps for 30 day supply - Dr. Lopez - filled 01/16/2019 - Will continue lorazepam 0.5mg BID prn on admission, as only medication that is seemingly active - toxicology screen is negative for benzodiazepines, which questions if he has been taking the medication appropriately - Ideally will taper and discontinue the lorazepam, as recommendation remains that substances with abuse potential be avoided 02/26 -The patient's outpatient providers, during a meeting this morning, report that the patient tends to successfully convince physicians to prescribe benzodiazepines for him and that, in the past, he has abused him to the degree that he is practically obtunded. 02/27 -A repeat check of the PDMP reveals that the patient is consistently being prescribed lorazepam 0.5 mg twice daily (number 60/month) by a Dr. Brent Alves. He is also being prescribed alprazolam 0.[address] mg [address] Jeff Lopez, with the most recent previous prescription of alprazolam being on 01/16/[address] Lopez also prescribed temazepam 30 mg capsules #30 on 01/16/2019. According to his residential providers, no temazepam capsules were found among the patient's belongings. His most recent prescription for lorazepam 0.5 mg tablets was filled on 02/12/2019. 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 In the past, he reportedly has used clonazepam and temazepam. -I advised the patient that because of his history of misuse of benzodiazepines we would not be prescribing benzodiazepines during his hospital stay. An as needed order for lorazepam has not been used during hospital stay, and I discontinued the order today. 03/02 - Will need to coordinate care with his PCP and outpatient psychiatrist prior to discharge regarding the above. 03/04 - Charge nurse spoke with the above offices regarding concern for continued benzodiazepine prescriptions - Records will be faxed to their offices on discharge, as all benzodiazepines were discontinued during this hospitalization 03/06 -The patient did not request benzodiazepines and did not complain of anxiety today. I suggested to him that perhaps Abilify is also helping with anxiety in his case, and he responded by saying "perhaps." 03/09 -Today, the patient is insisting that what he needs is "benzodiazepines," and explains that the reason he "needs" benzodiazepines is that he has "benzodiazepine receptors," and that he is the only medications that work. He is unable to process warnings about the risks of benzodiazepines in the elderly, including increased risk of falls and mortality. Clearly, the patient is seeking benzodiazepines and has no insight into the associated risks. He also insists that he has never had trouble with benzodiazepines in the past, although there is well-documented of this. 03/10 -Today, the patient repeated his insistence that he needs benzodiazepines and that benzodiazepines are the only medications that work because he has "benzodiazepine receptors." After being told that everyone has central nervous system receptors to which benzodiazepines may attach, he replied, "That may be, but some of people need to have benzodiazepines forearm benzodiazepine receptors. 03/12 -Continues to request Benzodiazepines. 03/13 -Requests Valium for his "benzodiazepines receptors." 03/27 -Refuses to cooperate with assessment today, but has recently told staff that he needs "either Valium or Ativan." -The patient apparently has no working insight into his history of abuse of prescription medications (benzodiazepines). 04/15 -The patient has not reference to request for benzodiazepines recently. However, the context is that he has not communicated much of anything directly, a other than the occasional need for self-care items. 04/24 -Today, the patient repeats his request for benzodiazepines, and insists that he is "supposed" to be taking diazepam 10 mg 3 times a day and temazepam for sleep every night. 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 Unfortunately, the exact opposite seems to have occurred. Not only was the patient was uncooperative subsequent to a dose of Valium, he seems to have been disinhibited by it and shouting "get out" or "get away" several times when approached by staff 04/25 - pt focused on seeking temazepam, or Valium 04/27 -The patient does have a history of substance dependence. However, the current plan and expected disposition is for the patient to be transferred to an extended care inpatient psychiatric unit where abuse of prescribed medications is unlikely to occur. Today, the patient calmly requests temazepam and says that he has tried a number of different sleeping pills, but "that is the one that works." The patient is also able to clearly say that he understands that temazepam is physically habituating that there are associated risks associated with temazepam including, but not limited to, a risk of falls, accidents, confusion, and depression. He tells us that at prescribed dosages he has not had any of these problems in the past. -Today, I agreed to a trial of temazepam 15 mg at bedtime, a dose that the patient says has been effective in the past. 04/30 close monitoring of temazepam given above, so far not taken 05/01 -After persistently insisting that he had to have temazepam in order to sleep and that nursing staff reports that he is sleeping through the night are wrong because he tends to rest with his eyes closed, the patient has not ask for temazepam and has not been given temazepam since it was ordered a week ago. The patient declined to explain why he has not ask for it, and refuses to answer questions today as to whether he is sleeping well without. In fact, when asked to explain why he had not taken any after insisting on having a prescribed, he shouted "get the hell out!!." Perhaps the patient has forgotten that it was ordered, but he seemed to remember the day after it was ordered and ask for not asked for it since. Our thought is that he may have somehow incorporated the order for temazepam into his delusional when belief system, based on his rage when asked to explain why he hasn't asked for it. (3) Hypertension: 02/25 - Continue home dose of clonidine 0.1mg qHS 03/01 Watch mildly elevated blood pressures as patient has been refusing clonidine 03/03 - BP normal past two days, and low today 03/10 -The patient's blood pressure today was 136/73. His pulse was 71 03/14 - elevated BP it is not urgent but will need monitored. 03/15 - BP WNL 03/26 - BP continues to be WNL 04/02 - BP remains within normal limits; continue daily vitals per standard admission order set - Will consider acute phase of this problem resolved at this time Risk Factors Assessment Male: Yes : Yes Do You Have Access To A Gun?: No Health Problems: Yes Mental Health Diagnoses: Yes Substance Use Disorders: Yes Protective Factors Assessment Anabaptist Beliefs: No : No Responsible for Young Children: No Employed: No Stable Relationships: No Supportive Family: No Good Rapport with Provider: No Absence of Any Risk Factors Above: No Interval History Identifying Information SCOTT ROBERTO is a 73-year-old M who currently lives at a [facility] in [place], has a history of schizophrenia, and is known to our unit from several previous admissions, most recently in 09/2016. He was admitted on 02/24/19 16:40 on a 302 involuntary commitment for exacerbation of schizophrenia and heightened paranoia resulting in belief he needed to hide in a dumpster to seek refuge from impending bombings. He was found by [facility] staff and brought to the ED by police, and is on a 304 involuntary commitment as of 03/16/19. He has been referred to [facility] for group home treatment. Chief Complaint "Good morning." Review of Systems Notes Constitutional: denied Cardiovascular: denied Respiratory: denied Gastrointestinal: denied Neurological: denied Psychiatric: denies symptoms other than stated above Total of at least 10 systems reviewed, pertinent positives as above and in HPI. Sleep Information Total Hours of Sleep: 6.75 Sleep Comments: pt on q-15 minute checks Meal Information Percent Meal Consumed - Breakfast: 80 Percent Meal Consumed - Lunch: 100 Percent Meal Consumed - Dinner: 100 Nutrition Comment: per meal record Subjective Subjective Patient was seen & assessed and interval progress reviewed with treatment team. Staff report the patient continues to demonstrate appropriate behavior. He is pleasant with staff, but continues to refuse most groups. He does walk the unit and occasionally spends time in the group room, but is largely isolative. Pt is seen today to assess progress since admission. Pt states he is "fine". He is cooperative and pleasant with superficial conversation, but is guarded with attempts to ask deeper questions. Pt is agreeable to likely attempt to go outside today with staff. He denies medication side effects as well as other needs or concerns today. Physical Exam Psychiatric Orientation: alert and cooperative Apperance: appropriately dressed, appropriately groomed and appeared stated age Eye Contact: good eye contact Motor Behavior: no abnormal motor movements (observed while sitting upright on edge of bed) Speech: normal rate/rhythm/volume of speech (nonspontaneous, brief but pleasant responses to questions) Affect: + flat affect Mood: no depressed mood ("Fine") and no anxious mood Thought Process: goal directed thought process and + concrete thought process Thought Content: + delusions (does not verbalize delusional beliefs, but likely ongoing ) Suicidal Thoughts: denies suicidal thoughts Cognition: remote memory grossly intact, attention grossly intact and language grossly intact Estimated Intelligence: consistent with education level Insight: + impaired insight Judgement: + impaired judgement Vital Signs (Past 24 Hours) Last Vital Signs Temp 36.7 C 05/08/19 06:34 Pulse 67 05/08/19 06:35 Resp 18 05/08/19 06:34 BP 115/72 05/08/19 06:35 Pulse Ox 96 02/24/19 08:10 Results & Data Current Inpatient Medications Current Inpatient Medications: Current Inpatient Medications Acetaminophen (Tylenol) 650 mg PO Q4H PRN PRN Reason: Headache or Minor Fever Stop: 05/23/19 08:14 Al Hydrox/Mg Hydrox/Simethicone (Maalox) 30 ml PO Q4H PRN PRN Reason: GI Upset Stop: 05/23/19 08:14 Benztropine Mesylate (Cogentin) 0.5 mg PO BID PRN PRN Reason: dystonia Stop: 05/23/19 08:14 Bismuth Subsalicylate (Kaopectate) 15 ml PO PRN PRN PRN Reason: Loose Stool Stop: 05/23/19 08:14 Clonidine HCl (Catapres) 0.1 mg PO HS MAG Stop: 05/23/19 21:59 Last Admin: 05/07/19 21:28 Dose: 0.1 mg Documented by: Cyanocobalamin (Vitamin B-12) 500 mcg PO DAILY MAG Stop: 05/23/19 08:59 Last Admin: 05/08/19 08:46 Dose: 500 mcg Documented by: Hydroxyzine HCl (Vistaril) 25 mg PO Q4H PRN PRN Reason: Anxiety Stop: 05/23/19 08:14 Hydroxyzine HCl (Vistaril) 50 mg PO HSZ PRN PRN Reason: Insomnia Stop: 05/23/19 08:14 Magnesium Hydroxide (Milk Of Magnesia) 30 ml PO DAILY PRN PRN Reason: Heartburn Stop: 05/23/19 08:19 Magnesium Oxide (Mag-Ox) 400 mg PO DAILY MAG Stop: 05/23/19 08:59 Last Admin: 05/08/19 08:46 Dose: 400 mg Documented by: Miscellaneous (Remove Nicoderm Patch) 1 ea N/A HS MAG Stop: 05/23/19 21:59 Last Admin: 05/07/19 21:29 Dose: Not Given Documented by: Multivitamins (Multivitamin Tab) 1 tab PO DAILY MAG Stop: 05/23/19 08:59 Last Admin: 05/08/19 08:46 Dose: 1 tab Documented by: Nicotine (Nicoderm Cq) 14 mg TD QAM MAG Stop: 05/23/19 08:59 Last Admin: 05/08/19 08:50 Dose: Not Given Documented by: Olanzapine (Zyprexa) 10 mg IM HS PRN PRN Reason: Undecided Stop: 05/23/19 08:19 Pyridoxine HCl (Vitamin B-6) 100 mg PO DAILY MAG Stop: 05/23/19 08:59 Last Admin: 05/08/19 08:46 Dose: 100 mg Documented by: Sodium Chloride (Zavala Nasal) 1 - 2 sprays NA PRN PRN PRN Reason: Nasal Dryness/Congestion Stop: 05/23/19 08:19 Ziprasidone (Geodon) 60 mg PO BIDM MAG Stop: 06/05/19 17:44 Last Admin: 05/08/19 08:46 Dose: 60 mg Documented by: Mental Health & Subst Abuse Tx Therapist Name of Therapist: Sammy Head Wood Grinder Name of Head Wood Grinder: Shruti Lopez Phone Number for Head Wood Grinder: Case Management Appointment Comment: [phone], [place] [address] Post Discharge Appointments Primary Care Physician Name Of Family Doctor: Dr. Lopez Contact Information Discharge Discharge Address: [address] [place] [id number] CPT Code CPT Code 95030 (1) Schizophrenia Schizophrenia type: paranoid schizophrenia Qualified Code(s): F20.0 - Paranoid schizophrenia (2) Hypertension Hypertension type: essential hypertension Qualified Code(s): I10 - Essential (primary) hypertension
[2019-05-08] MEDS: cloNIDine HCL 0.1 MG TAB PO SCH (21:07)
[2019-05-09] MEDS: ZIPRASIDONE HCL 20 MG CAP PO SCH ×2 (08:20→17:24)
[2019-05-09] MEDS: MAGNESIUM OXIDE 400 MG TAB PO SCH (08:22)
[2019-05-09] MEDS: MULTIVITAMIN TAB PO SCH (08:22)
[2019-05-09] MEDS: NICOTINE 14 MG/24 HR PATCH TD SCH (08:23)
[2019-05-09] MEDS: PYRIDOXINE HCL 50 MG TAB PO SCH (08:23)
[2019-05-09] MEDS: CYANOCOBALAMIN 500 MCG TABLET (VITAMIN B-12) PO SCH (08:23)
--- NOTE | 2019-05-09 14:07 | Psychiatric Progress Note ---
Date of Service May 09, 2019 Impression / Recommendations Impression Patient remains poorly engaged in treatment, refusing most groups. He briefly had a roommate, but was placed back in a private room due to disorganized behavior, after multiple episodes of going into other patient's rooms and staring at them, once wearing nothing but a towel. His prison bed was relinquished due to ongoing psychosis and unwillingness to engage in treatment, and although he has been accepted at the [facility] since 04/02/2019, we still do not have a bed date. He has been refusing antipsychotic medications and had not taken anything over a 2 week period, but 04/29 agreed to a trial of ziprasidone, which he is tolerating well, and has been titrated to 60mg BID. Given the chronicity and severity of his condition, it may take weeks to see benefit from medication. The plan is for the patient to be transferred for long-term psychiatric hospitalization, given his inability to cooperate with treatment, given his inability to attend his own physical needs without the availability of the full spectrum of psychiatric services at the inpatient level of care, and ongoing psychosis with auditory hallucinations and paranoia. (1) Schizophrenia: 02/25 - Continue home medication regimen - as refusing offerings of his antipsychotic, will likely require olanzapine IM (or alternative agent) over objection, given clear evidence of paranoia and delusional thought process - previously stabilized on this medication - Pt agreeable to taking all other medications, with exception of antipsychotic as mentioned above - Admitted to a locked inpatient behavioral health unit, on q15 minute safety checks - Encourage medication initiation/adjustments as indicated - Encourage participation in group and recreational therapies - Gather collateral information from outpatient providers and prison staff - Suggest family meeting to involve outpatient supports in safety planning - Reschedule appropriate aftercare appointments 02/26 -Patient indicates willingness to sign a release for the [facility], will get collateral from their staff. -File for 303 involuntary commitment to be held tomorrow. -Recommend medications over objection, with an IM Zyprexa backup for refusal of oral medication. Involve outpatient treatment team to discuss ways to improve stability and compliance; consider long-acting injectable antipsychotic. -Order fasting labs for monitoring on an atypical antipsychotic once patient is more cooperative. 02/27 -The patient was retrained at his involuntary commitment hearing (303) this morning. -He has continuously and consistently refused psychiatric medications to date. However, today, when I explained that that a option that might become necessary in his case is medication over objection, and an intramuscular form, the patient said that he understood and that he would try medications that I prescribe. His initial preference would be olanzapine, but because olanzapine is not available in a long acting depot form, we would first like to try aripiprazole. He indicates that he is taken aripiprazole in the past and has been able to tolerate it, although he does not believe that it has been pa rticularly helpful. -A trial dose of aripiprazole 15 mg by mouth, as a one-time dose, has been ordered and he assessed for efficacy. 02/28 -Appears to be tolerating initiation of Abilify so far. Remains delusional, paranoid. May consider further titration tomorrow -Aricept discontinued at patient's request on 02/27/2019. The medication has not been demonstrated to be efficacious for cognitive impairment associated with long-standing schizophrenia however we should be vigilant for slowing of mentation following discontinuation. 03/01 Patient fixated and irrational regarding access to clothing item as above today. Hospital environment becoming incorporated and delusions. Consider possibility that the aripiprazole is contributing to activation. We will increase to 20 mg tomorrow and also start Risperdal 1 mg p.o. twice daily as as needed. 03/02 - Continue with aripiprazole at 20mg daily, consider need for further titration - if tolerating and effective, eventual plan will be for conversion to Abilify Maintena - Pt has not yet utilized risperidone 03/03 - Increase aripiprazole to 25mg (equivalent to 30mg pill) and change to liquid formulation to decrease risk of cheeking/nonadherence, as patient does not believe he needs medication and had been noncompliant prior to hospitalization. - Fasting glucose and lipid profile ordered for tomorrow for monitoring on an atypical antipsychotic. - Private room due to psychosis, agitation, and inappropriate disrobing/sexual behavior. - Meeting with BCM and CRR staff when patient able to tolerate. 03/04 - Continue aripiprazole 25mg liquid (30mg pill equivalent) and continue to observe for improvement in thought process/content - consider conversion to Maintena if effective, versus trial of another agent if improvement remains limited - Fasting labs reviewed - all values WNL - Continue medically necessary private room - Request meeting with CRR staff, in order to obtain details about patient's proximity to baseline 03/05 -Patient refusing liquid aripiprazole, but agrees to take the pill: Ordered 30 mg daily. -Schedule meeting with his hospice case manager, CRR and psych rehab staff. Consider involuntary outpatient commitment at the time of discharge. 03/06 -The patient has improved in that he is more reality based at this point. He continues to harbor fixed, systematized delusions, but is generally able to focus on reality based topics. -Although the patient tells me that he does not feel that aripiprazole has been effective, he is able to accept my opinion in the opinion of the staff that he has improved in response to aripiprazole. -The patient's main objection to aripiprazole oral solution is that he does not like the way it tastes, and within this context, he tells us that he is willing to accept Abilify Maintenaand requests that it be injected into his buttock. Abilify Maintena 300 mg IM ordered, and oral Abilify discontinued. We will resume oral Abilify if the patient subsequently changes his mind and refuses the injection. 03/07 resuming Abilify oral given his refusal of FARAH form of Abilify 03/08 is taking Abilify po form but refusing Abilify Maintena form. advise close monitoring for potential of checking given pt's tendency to not want to take medications. 03/09 -The patient is flatly refusing to take aripiprazole in the form of Abilify Maintena. He is also been hesitant to take oral Abilify, but has been doing so. -The patient's lack of cooperation is thought possibly to be related to an un-expressed desire to not be discharged back to the community. He told me to day that he left his meeting with his community providers after a few seconds because "just the side of them made me extremely anxious. My pulse elevated to 140." Later, he told me that he was still anxious about it and his pulse was "still around 130." The patient allowed me to take his pulse, and it was approximately 76. At that point he said, "did I say pulse? I meant systolic blood pressure." And when I pointed out that his systolic blood pressure of 130 is not considered to be a particular concern, he said "I mean diastolic." -Our hope had been that the patient would agree to accept a Depo form of medication. He was refusing Haldol Decanoate because of various side effects. Risperidone constant was ruled out as a first-line Depo medication because of the frequency of administration (the patient tends to get into power struggles over medications) and because he says that he is sensitive to "big needles." Invega would be an option, but currently the patient is being so uncooperative that our concern would be that he would cheek the oral tablets that we would have to give him first. Accordingly, the new strategy will be to discontinue Abilify, and resume olanzapine with olanzapine IM over objection if necessary. We will begin the olanzapine Zydis 20 mg at bedtime 03/10 -The patient took the prescribed dose of olanzapine Zydis 20 mg at bedtime last night. Today, he tells me that it "did not help at all." However, staff report that he has been somewhat more agreeable, more pleasant, and less paranoid today. -As he has with other providers, today he told me that I should have given him olanzapine 5 mg "to start", and I explained that he was already on olanzapine 20 mg when he came into the hospital and we know that he is able to tolerate that dose. He tells me that he did, in fact tolerate the dose and is not aware of any side effects, but, somewhat illogically, insisted that the dose was "too high for a starting dose." 03/11 - Continue current medication regimen at this time - olanzapine 20mg daily - Encourage participation in the milieu and in group programming as tolerated 03/12 -Continue current medication regimen. The patient's condition has not yet improved. -The patient does participate in select groups, but often tends to be disruptive. 03/13 -Today, the patient seems to be somewhat more cooperative and less frankly delusional. It was possible to engage in a mostly reality based conversation for 5 or 10 minutes at a time. Also, although he was unhappy with me when I refused to provide him with a dose of Valium for anxiety, he was able to remain pleasant and calm at this time, did not storm from the room." 03/14 and 03/15 -no change in medication will work on therapeutic alliance given patient is not participating 03/16 -304 involuntary commitment granted. -Patient remains completely uncooperative with treatment, refused his Zyprexa Zydis last evening, but then ultimately took it before he received the injection. I have a high suspicion for cheeking of antipsychotic medication, and we will continue to be vigilant with mouth checks, and work towards a long- acting injectable. 03/17 -Patient has been on Zyprexa 20 mg at bedtime for 1 week, with limited response. He is refusing to discuss other medication options. Per records, he has been prescribed up to 30 mg olanzapine in the past, so will increase his dose to this previously tolerated dose, as it is 1 of the few medications he has been willing to take. Continue IM backup for refusal, and Zyprexa Zydis formulation to decrease risk of cheeking. He is not compliant with mouth checks, but have asked staff to try to observe him for 10 minutes after taking the Zydis to ensure he is not spitting it out before it dissolves. 03/18 -Continue Zyprexa Zydis 30 mg at bedtime with IM backup. Consider switch to a different medication (?oral paliperidone with IM backup) if irritability and agitation continues. He has tried virtually every atypical antipsychotic and reports none of them were effective (although some trials were short due to nonadherence) and has a history of dystonia on haloperidol. Clozapine would be a reasonable choice, but he has been unwilling to even discuss medication options. -Consider some component of cognitive decline which could be contributing to his worsening presentation and will need to be monitored and worked up further once he is more psychiatrically stable. -Refer to [facility] in the event that he does not improve and long-term inpatient treatment is needed. 03/19 - Proceed with [facility] referral. 03/20 - Continue current medication regimen; patient refused EKG and CXR yesterday - refused again today - Continue attempts to gather information to make a referral to [facility] 03/23 - Proceed with [facility] referral - patient has refused EKG and CXR for multiple attempts. We will send most recent tests available - Continue current medication regimen at this time 03/24 -Attempted to hold diversion meeting with his outpatient [facility], prison director, and the [facility]; patient refused to attend or participate in the meeting. 03/25 - 03/26 - Continue treatment plan as above - no change in patient's condition and he remains unwilling to participate meaningfully in treatment - Continue with [facility] referral 03/27 -The patient has been informed that the plan at this point is to transfer him to [facility] for long-term inpatient psychiatric treatment, given his refusal to adhere with treatment and his associated behaviors in the community when not adherent with psychiatric treatment. -The patient continues to refuse mouth checks after given dosages of Zyprexa Zydis, and there is some question regarding whether he is actually ingesting this medication. He also would not cooperate with laboratory testing. -There has been a question regarding the patient's cognitive functions, and prior to admission he had been taking Aricept. When he does cooperate with this, I have not seen evidence of any substantial cognitive impairment. He may have mild cognitive impairment, but does not fully cooperate with formal cognitive assessment. He easily recalls the names of his providers, the names of the medications he is taking, the names of the various infectious agents that he believes are causing some of his psychiatric symptoms, the names of certain chemicals that he believes will rid him of the reference to infections, and is able to discuss current events such as recent news items. His assertion that he wants to return to his apartment in the community seems belied by his steadfast refusal to cooperate with those interventions I would make it possible for him to return, and there is some suspicion that although the patient remains floridly psychotic he may also be intentionally sabotaging discharge. 03/28 - 03/30 -There is been no change control analyst the past 2 weeks, and long-term inpatient treatment at the [facility] is indicated. 03/31 - Continue current medication regimen - Pt briefly verbalized willingness for FARAH, but was not agreeable to medication adjustments to allow for this to be possible - If he should change his mind; recommendation is for trial of Invega orally to establish tolerability, then consideration for Invega Sustenna - unwilling for this today 04/01 - 04/03 - Continue current medication regimen - Continues to refuse FARAH, will continue discussion daily as this is the reported preference of his CRR 04/04 -Questionable positive PPD measuring 13 mm but history of confinement places him at higher risk. Patient refused chest x-ray today but we will reapproach. No active symptoms of infection. Order for sputum culture and smear today for confirmation. 04/05 -PPD now appears negative. Would suggest follow through with sputum smear and culture for confirmation as previously ordered -Continue treatment plan as above 04/06 - PPD reportedly negative, patient unable to follow-up with sputum smear - therefore discontinued - Continue medication regimen as above - unwilling to discuss conversion to an FARAH - Meeting today with representation from [facility] to discuss discharge planning 04/07 - Continue medication regimen as above - remains unwilling to discuss changes - Additional meeting with CRR and CM scheduled for next week - We have been regularly assessing patient's condition and appropriateness to go outside since his 30-day treatment plan review. As patient continues to be unwilling to participate in a meaningful conversation with providers regarding his condition, we continue to be unable to determine if he is appropriate to be taken off the unit - therefore will await ability to discuss the topic in a meaningful way prior to making this determination. Will continue regular evaluation. 04/08 - 04/12 - Continue current medication regimen, as patient unwilling to discuss changes - Attempted again to determine if appropriate to go outside, patient unwilli ng to participate in conversation despite being told the goal of allowing him to go outside - Meeting with CM and CRR director scheduled for 04/13 at 1030 04/13 - Continue Zyprexa 30mg daily - unwilling to engage in conversation to discuss changes - Remains unwilling to engage in conversation to determine if he is appropriate to go outside, he has been made aware this is a possibility for him - Meeting for attempted diversion resulted in decision to no longer hold patient's CRR bed, [facility] admission is supported based on little to no improvement since admission and limited willingness to engage in conversations regarding medication adjustments - We have been asked to attempt to get a QuantiFERON-TB Gold Plus test, despite negative PPD reading within acceptable timeframe - pt unwilling to engage in conversation to obtain consent, further indicating why long-term inpatient psychiatric hospitalization is necessary. Will continue to attempt to gain consent for this testing to be completed 04/15 -The patient is slightly more communicative today and that he does answer at least one question which was whether he would be in agreement if we offered him a drug holiday from olanzapine. His response was in the affirmative.. He also said "thank you." -The patient continues to appear suspicious and he clearly is angry at and unwilling to cooperate with staff. He is particularly bumptious with individuals who he sees as not fully trained and fully qualified. -The plan remains transfer to the [facility] for long-term psychiatric care. Our hope remains that we will be able to divert the patient from the [facility], but the patient, as noted above, remains uncommunicative and resistant. Perhaps contributing to the patient's obvious anger and distress is the fact that he has learned this week that his residential program is unwilling to allow him to return and has stopped holding his bed for other individuals. 04/16 - Continue current treatment plan, which includes holiday from olanzapine as a rapport building attempt, and due to concerns that he is more irritable and resistant to treatment - which is obviously not beneficial for his overall condition. - Attempted to communicate with the patient today via written/printed text - will add addendum to this note if patient was willing to complete the sheet and respond to questions 04/21 -Patient remains uncooperative and unwilling to participate in interviews, but has been out of his room more and attending some groups. He remains unwilling to discuss treatment options, including antipsychotic medication. 04/22 - Patient remains unwilling for medications, but is interacting with peers appropriately and attending groups. Will try discontinuing private room and placing him with a roommate, is perhaps increased socialization will be therapeutic for him. 04/23 -no change, patient still unwilling for medications(other than marijuana and benzos) 04/24 -The patient remains angry, suspicious, and largely uncommunicative. He spoke briefly with the attending psychiatrist today in order to request privileges to go outdoors with staff, and was able to cooperate with a fresh air break, but subsequently was angry, bumptious, and willing to cooperate with assessments. 04/25 - Valium 5mg dose yesterday appeared to lead to some disinhibited verbally agitated behavior, with the Valium dose being discontinued following that one dose. Pt is fixated on Valium and on temazepam. refusal to take other medications with. Handling a roommate decently currently. Pt refusing to attend groups. Limited engagement with peers and staff occurring. no change to plan today 04/26 no change to plan today 04/27 -The patient cooperated with an interview today after several weeks of flatly refusing, sometimes rudely refusing to speak to providers. Today, the patient not voiced any delusional material and was able to specifically answer questions regarding perceptual disturbances. 04/28 -no change. 04/29 -start ziprasidone 20 mg twice daily with meals. Reviewed risks, benefits and common side effects including sedation and the need to take with food. 04/30 maintained ziprasidone at current dose today given pt's tendency to refuse medications mikey if notice any s/e, considering raising dose tomorrow 05/01 -Based on the patient's behavior today there seems to be no evidence that the patient is enjoying any particular benefit from ziprasidone. To the contrary, he may have become more bumptious and withdrawn. My recommendation is that we continue to observe him on ziprasidone 20 mg twice a day before increasing his dose further, possibly over the weekend. 05/02 -continue current medication and consider dose increase next week. It is likely that it will take weeks to show benefit from antipsychotic medication given the severity and chronicity of his symptoms, and his history of treatment resistance. He would be a good candidate for clozapine, but has never been willing to consider it. 05/03 -increase ziprasidone to 40 mg twice daily with food. Continue to encourage group attendance. 05/04 - Continue recently increased dose of ziprasidone 40mg BID with food 05/05 - Continue as above; limited change in presentation at this time 05/06 - Pt agreeable to titrating ziprasidone to 60mg BID, starting with this evening's dose. - Is superficially cooperative with conversation, but remains resistant to unit programming and more in-depth interactions with staff - Continues to be unable/unwilling to discuss status of delusional beliefs; however, appear to be ongoing as patient has reported that he is to be discharge, that there is a court order for him to leave, and that he has an apartment secured to move into - despite not having contact with individuals other than his hospice case manager 05/07 - Continue as above, limited change in presentation 05/08 - Continue as above, consider need for further titration of ziprasidone - Limited change in presentation, but has been superficially pleasant 05/09 - continue as above, considering potential to further titrate ziprasidone 60mg bid with meals, as pt was more willing to engage radio news writer even more then prior times (last seen by this radio news writer about 9 days ago) will maintain as is for now but considering raising to 80mg bid, (2) Substance abuse: 02/25 - Pt has reported history of substance abuse, and recommendation has consistently been for avoidance of substances with significant abuse potential. - PDMP queried - most recent prescriptions below - lorazepam 0.5mg #60 tabs for 30 day supply - Dr. Alves - filled 02/12/2019 - alprazolam 0.5mg #90 tabs for 30 day supply - Dr. Lopez - filled 01/16/2019 - temazepam 30mg #30 caps for 30 day supply - Dr. Lopez - filled 01/16/2019 - Will continue lorazepam 0.5mg BID prn on admission, as only medication that is seemingly active - toxicology screen is negative for benzodiazepines, which questions if he has been taking the medication appropriately - Ideally will taper and discontinue the lorazepam, as recommendation remains that substances with abuse potential be avoided 02/26 -The patient's outpatient providers, during a meeting this morning, report that the patient tends to successfully convince physicians to prescribe benzodiazepines for him and that, in the past, he has abused him to the degree that he is practically obtunded. 02/27 -A repeat check of the PDMP reveals that the patient is consistently being prescribed lorazepam 0.5 mg twice daily (number 60/month) by a Dr. Brent Alves. He is also being prescribed alprazolam 0.[address] mg [address] Jeff Lopez, with the most recent previous prescription of alprazolam being on 01/16/[address] Lopez also prescribed temazepam 30 mg capsules #30 on 01/16/2019. According to his residential providers, no temazepam capsules were found among the patient's belongings. His most recent prescription for lorazepam 0.5 mg tablets was filled on 02/12/2019. 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 In the past, he reportedly has used clonazepam and temazepam. -I advised the patient that because of his history of misuse of benzodiazepines we would not be prescribing benzodiazepines during his hospital stay. An as needed order for lorazepam has not been used during hospital stay, and I discontinued the order today. 03/02 - Will need to coordinate care with his PCP and outpatient psychiatrist prior to discharge regarding the above. 03/04 - Charge nurse spoke with the above offices regarding concern for continued benzodiazepine prescriptions - Records will be faxed to their offices on discharge, as all benzodiazepines were discontinued during this hospitalization 03/06 -The patient did not request benzodiazepines and did not complain of anxiety today. I suggested to him that perhaps Abilify is also helping with anxiety in his case, and he responded by saying "perhaps." 03/09 -Today, the patient is insisting that what he needs is "benzodiazepines," and explains that the reason he "needs" benzodiazepines is that he has "benzodiazepine receptors," and that he is the only medications that work. He is unable to process warnings about the risks of benzodiazepines in the elderly, including increased risk of falls and mortality. Clearly, the patient is seeking benzodiazepines and has no insight into the associated risks. He also insists that he has never had trouble with benzodiazepines in the past, although there is well-documented of this. 03/10 -Today, the patient repeated his insistence that he needs benzodiazepines and that benzodiazepines are the only medications that work because he has "benzodi azepine receptors." After being told that everyone has central nervous system receptors to which benzodiazepines may attach, he replied, "That may be, but some of people need to have benzodiazepines forearm benzodiazepine receptors. 03/12 -Continues to request Benzodiazepines. 03/13 -Requests Valium for his "benzodiazepines receptors." 03/27 -Refuses to cooperate with assessment today, but has recently told staff that he needs "either Valium or Ativan." -The patient apparently has no working insight into his history of abuse of prescription medications (benzodiazepines). 04/15 -The patient has not reference to request for benzodiazepines recently. However, the context is that he has not communicated much of anything directly, a other than the occasional need for self-care items. 04/24 -Today, the patient repeats his request for benzodiazepines, and insists that he is "supposed" to be taking diazepam 10 mg 3 times a day and temazepam for sleep every night. 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 Unfortunately, the exact opposite seems to have occurred. Not only was the patient was uncooperative subsequent to a dose of Valium, he seems to have been disinhibited by it and shouting "get out" or "get away" several times when approached by staff 04/25 - pt focused on seeking temazepam, or Valium 04/27 -The patient does have a history of substance dependence. However, the current plan and expected disposition is for the patient to be transferred to an extended care inpatient psychiatric unit where abuse of prescribed medications is unlikely to occur. Today, the patient calmly requests temazepam and says that he has tried a number of different sleeping pills, but "that is the one that works." The patient is also able to clearly say that he understands that temazepam is physically habituating that there are associated risks associated with temazepam including, but not limited to, a risk of falls, accidents, confusion, and depression. He tells us that at prescribed dosages he has not had any of these problems in the past. -Today, I agreed to a trial of temazepam 15 mg at bedtime, a dose that the patient says has been effective in the past. 04/30 close monitoring of temazepam given above, so far not taken 05/01 -After persistently insisting that he had to have temazepam in order to sleep and that nursing staff reports that he is sleeping through the night are wrong because he tends to rest with his eyes closed, the patient has not ask for temazepam and has not been given temazepam since it was ordered a week ago. The patient declined to explain why he has not ask for it, and refuses to answer questions today as to whether he is sleeping well without. In fact, when asked to explain why he had not taken any after insisting on having a prescribed, he shouted "get the hell out!!." Perhaps the patient has forgotten that it was ordered, but he seemed to remember the day after it was ordered and ask for not asked for it since. Our thought is that he may have somehow incorporated the order for temazepam into his delusional when belief system, based on his rage when asked to explain why he hasn't asked for it. (3) Hypertension: 02/25 - Continue home dose of clonidine 0.1mg qHS 03/01 Watch mildly elevated blood pressures as patient has been refusing clonidine 7/16 - BP normal past two days, and low today 03/10 -The patient's blood pressure today was 136/73. His pulse was 71 03/14 - elevated BP it is not urgent but will need monitored. 03/15 - BP WNL 03/26 - BP continues to be WNL 04/02 - BP remains within normal limits; continue daily vitals per standard admission order set - Will consider acute phase of this problem resolved at this time Risk Factors Assessment Male: Yes : Yes Do You Have Access To A Gun?: No Health Problems: Yes Mental Health Diagnoses: Yes Substance Use Disorders: Yes Protective Factors Assessment Uatsdin Beliefs: No : No Responsible for Young Children: No Employed: No Stable Relationships: No Supportive Family: No Good Rapport with Provider: No Absence of Any Risk Factors Above: No Interval History Identifying Information SCOTT ROBERTO is a 73-year-old M who currently lives at a [facility] in [place], has a history of schizophrenia, and is known to our unit from several previous admissions, most recently in 09/2016. He was admitted on 02/24/19 16:40 on a 302 involuntary commitment for exacerbation of schizophrenia and heightened paranoia resulting in belief he needed to hide in a dumpster to seek refuge from impending bombings. He was found by [facility] staff and brought to the ED by police, and is on a 304 involuntary commitment as of 03/16/19. He has been referred to [facility] for [facility] treatment. Chief Complaint "I am fine". Review of Systems Sleep Information Total Hours of Sleep: 7.25 Sleep Comments: pt on q-15 minute checks Meal Information Percent Meal Consumed - Breakfast: 100 Percent Meal Consumed - Lunch: 100 Percent Meal Consumed - Dinner: 100 Nutrition Comment: per meal record Subjective Subjective Patient was seen & assessed and interval progress reviewed with nursing and rn social services. Pt appears to be complaint with taking geodon 60mg bid with food, pt does not view it as having any s/e or overt impact on him. He can admit that he would not be open to noticing any overt positive impact from the medication since he does not view himself as needing that type of med nor having related symptoms. He denied SI or HI or depression or positive psychotic symptoms. He endorsed his sleep not being good, meaning feeling that his sleep was not deep. He endorsed nl appetite. He can feel a bit stiff in his muscles due to not being active and seemed willing to consider doing some stretching. Pt been pleasant and polite, attends some groups with various degrees of engagement per staff. Physical Exam Psychiatric Orientation: alert, oriented x 3 and cooperative Apperance: appropriately dressed, appropriately groomed and appeared stated age Eye Contact: good eye contact Motor Behavior: steady gait and station and no abnormal motor movements (observed while sitting upright on edge of bed) Speech: normal rate/rhythm/volume of speech (nonspontaneous, brief but pleasant responses to questions); no pressured speech Affect: + constricted affect; no anxious affect, no angry affect and + mood not congruent with affect Mood: no depressed mood ("Fine"), no anxious mood, no irritable mood ("I'm ok") and no angry mood Thought Process: goal directed thought process, clear/coherent thought process and + concrete thought process Thought Content: + cognitive distortions and + persecution Suicidal Thoughts: denies suicidal thoughts and denies suicidal intent Homicidal Thoughts: denies homicidal thoughts Hallucinations: no auditory hallucinations, no visual hallucinations, no tactile hallucinations and no gustatory hallucinations Cognition: attention grossly intact and language grossly intact; + recent memory not intact Estimated Intelligence: consistent with education level and + above average estimated intelligence Insight: + severely impaired insight Judgement: + impaired judgement Vital Signs (Past 24 Hours) Last Vital Signs Temp 36.8 C 05/09/19 06:30 Pulse 68 05/09/19 06:30 Resp 14 05/09/19 06:30 BP 95/57 L 05/09/19 06:30 Pulse Ox 96 02/24/19 08:10 Results & Data Current Inpatient Medications Current Inpatient Medications: Current Inpatient Medications Acetaminophen (Tylenol) 650 mg PO Q4H PRN PRN Reason: Headache or Minor Fever Stop: 05/23/19 08:14 Al Hydrox/Mg Hydrox/Simethicone (Maalox) 30 ml PO Q4H PRN PRN Reason: GI Upset Stop: 05/23/19 08:14 Benztropine Mesylate (Cogentin) 0.5 mg PO BID PRN PRN Reason: dystonia Stop: 05/23/19 08:14 Bismuth Subsalicylate (Kaopectate) 15 ml PO PRN PRN PRN Reason: Loose Stool Stop: 05/23/19 08:14 Clonidine HCl (Catapres) 0.1 mg PO HS MAG Stop: 05/23/19 21:59 Last Admin: 05/08/19 21:07 Dose: 0.1 mg Documented by: Cyanocobalamin (Vitamin B-12) 500 mcg PO DAILY MAG Stop: 05/23/19 08:59 Last Admin: 05/09/19 08:23 Dose: 500 mcg Documented by: Hydroxyzine HCl (Vistaril) 25 mg PO Q4H PRN PRN Reason: Anxiety Stop: 05/23/19 08:14 Hydroxyzine HCl (Vistaril) 50 mg PO HSZ PRN PRN Reason: Insomnia Stop: 05/23/19 08:14 Magnesium Hydroxide (Milk Of Magnesia) 30 ml PO DAILY PRN PRN Reason: Heartburn Stop: 05/23/19 08:19 Magnesium Oxide (Mag-Ox) 400 mg PO DAILY MAG Stop: 05/23/19 08:59 Last Admin: 05/09/19 08:22 Dose: 400 mg Documented by: Miscellaneous (Remove Nicoderm Patch) 1 ea N/A HS MAG Stop: 05/23/19 21:59 Last Admin: 05/08/19 21:08 Dose: Not Given Documented by: Multivitamins (Multivitamin Tab) 1 tab PO DAILY MAG Stop: 05/23/19 08:59 Last Admin: 05/09/19 08:22 Dose: 1 tab Documented by: Nicotine (Nicoderm Cq) 14 mg TD QAM MAG Stop: 05/23/19 08:59 Last Admin: 05/09/19 08:23 Dose: Not Given Documented by: Olanzapine (Zyprexa) 10 mg IM HS PRN PRN Reason: Undecided Stop: 05/23/19 08:19 Pyridoxine HCl (Vitamin B-6) 100 mg PO DAILY MAG Stop: 05/23/19 08:59 Last Admin: 05/09/19 08:23 Dose: 100 mg Documented by: Sodium Chloride (Isabela Nasal) 1 - 2 sprays NA PRN PRN PRN Reason: Nasal Dryness/Congestion Stop: 05/23/19 08:19 Ziprasidone (Geodon) 60 mg PO BIDM MAG Stop: 06/05/19 17:44 Last Admin: 05/09/19 08:20 Dose: 60 mg Documented by: Mental Health & Subst Abuse Tx Therapist Name of Therapist: Denies Lace Sewer Name of Lace Sewer: Milfordprashant Resendez Tasiajose Phone Number for Lace Sewer: Case Management Appointment Comment: [id number], [place] [address] Post Discharge Appointments Primary Care Physician Name Of Family Doctor: Dr. Lopez Contact Information Discharge Discharge Address: [address] [place] [address], [place] [address] CPT Code CPT Code 28947 (1) Schizophrenia Schizophrenia type: paranoid schizophrenia Qualified Code(s): F20.0 - Paranoid schizophrenia (2) Hypertension Hypertension type: essential hypertension Qualified Code(s): I10 - Essential (primary) hypertension
[2019-05-09] MEDS: cloNIDine HCL 0.1 MG TAB PO SCH (20:35)
[2019-05-10] MEDS: MULTIVITAMIN TAB PO SCH (08:41)
[2019-05-10] MEDS: MAGNESIUM OXIDE 400 MG TAB PO SCH (08:41)
[2019-05-10] MEDS: ZIPRASIDONE HCL 20 MG CAP PO SCH ×2 (08:41→17:57)
[2019-05-10] MEDS: CYANOCOBALAMIN 500 MCG TABLET (VITAMIN B-12) PO SCH (08:42)
[2019-05-10] MEDS: NICOTINE 14 MG/24 HR PATCH TD SCH (08:42)
[2019-05-10] MEDS: PYRIDOXINE HCL 50 MG TAB PO SCH (08:42)
--- NOTE | 2019-05-10 15:12 | Psychiatric Progress Note ---
Date of Service May 10, 2019 Impression / Recommendations Impression Patient remains poorly engaged in treatment, refusing most groups. He briefly had a roommate, but was placed back in a private room due to disorganized behavior, after multiple episodes of going into other patient's rooms and staring at them, once wearing nothing but a towel. His correction bed was relinquished due to ongoing psychosis and unwillingness to engage in treatment, and although he has been accepted at the [facility] since 04/02/2019, we still do not have a bed date. He has been refusing antipsychotic medications and had not taken anything over a 2 week period, but 04/29 agreed to a trial of ziprasidone, which he is tolerating well, and has been titrated to 60mg BID. Given the chronicity and severity of his condition, it may take weeks to see benefit from medication. The plan is for the patient to be transferred for long-term psychiatric hospitalization, given his inability to cooperate with treatment, given his inability to attend his own physical needs without the availability of the full spectrum of psychiatric services at the inpatient level of care, and ongoing psychosis with auditory hallucinations and paranoia. (1) Schizophrenia: 02/25 - Continue home medication regimen - as refusing offerings of his antipsychotic, will likely require olanzapine IM (or alternative agent) over objection, given clear evidence of paranoia and delusional thought process - previously stabilized on this medication - Pt agreeable to taking all other medications, with exception of antipsychotic as mentioned above - Admitted to a locked inpatient behavioral health unit, on q15 minute safety checks - Encourage medication initiation/adjustments as indicated - Encourage participation in group and recreational therapies - Gather collateral information from outpatient providers and correction staff - Suggest family meeting to involve outpatient supports in safety planning - Reschedule appropriate aftercare appointments 02/26 -Patient indicates willingness to sign a release for the [facility] correction, will get collateral from their staff. -File for 303 involuntary commitment to be held tomorrow. -Recommend medications over objection, with an IM Zyprexa backup for refusal of oral medication. Involve outpatient treatment team to discuss ways to improve stability and compliance; consider long-acting injectable antipsychotic. -Order fasting labs for monitoring on an atypical antipsychotic once patient is more cooperative. 02/27 -The patient was retrained at his involuntary commitment hearing (303) this morning. -He has continuously and consistently refused psychiatric medications to date. However, today, when I explained that that a option that might become necessary in his case is medication over objection, and an intramuscular form, the patient said that he understood and that he would try medications that I prescribe. His initial preference would be olanzapine, but because olanzapine is not available in a long acting depot form, we would first like to try aripiprazole. He indicates that he is taken aripiprazole in the past and has been able to tolerate it, although he does not believe that it has been pa rticularly helpful. -A trial dose of aripiprazole 15 mg by mouth, as a one-time dose, has been ordered and he assessed for efficacy. 02/28 -Appears to be tolerating initiation of Abilify so far. Remains delusional, paranoid. May consider further titration tomorrow -Aricept discontinued at patient's request on 02/27/2019. The medication has not been demonstrated to be efficacious for cognitive impairment associated with long-standing schizophrenia however we should be vigilant for slowing of mentation following discontinuation. 03/01 Patient fixated and irrational regarding access to clothing item as above today. Hospital environment becoming incorporated and delusions. Consider possibility that the aripiprazole is contributing to activation. We will increase to 20 mg tomorrow and also start Risperdal 1 mg p.o. twice daily as as needed. 03/02 - Continue with aripiprazole at 20mg daily, consider need for further titration - if tolerating and effective, eventual plan will be for conversion to Abilify Maintena - Pt has not yet utilized risperidone 03/03 - Increase aripiprazole to 25mg (equivalent to 30mg pill) and change to liquid formulation to decrease risk of cheeking/nonadherence, as patient does not believe he needs medication and had been noncompliant prior to hospitalization. - Fasting glucose and lipid profile ordered for tomorrow for monitoring on an atypical antipsychotic. - Private room due to psychosis, agitation, and inappropriate disrobing/sexual behavior. - Meeting with BCM and CRR staff when patient able to tolerate. 03/04 - Continue aripiprazole 25mg liquid (30mg pill equivalent) and continue to observe for improvement in thought process/content - consider conversion to Maintena if effective, versus trial of another agent if improvement remains limited - Fasting labs reviewed - all values WNL - Continue medically necessary private room - Request meeting with CRR staff, in order to obtain details about patient's proximity to baseline 03/05 -Patient refusing liquid aripiprazole, but agrees to take the pill: Ordered 30 mg daily. -Schedule meeting with his skilled nursing case manager, CRR and psych rehab staff. Consider involuntary outpatient commitment at the time of discharge. 03/06 -The patient has improved in that he is more reality based at this point. He continues to harbor fixed, systematized delusions, but is generally able to focus on reality based topics. -Although the patient tells me that he does not feel that aripiprazole has been effective, he is able to accept my opinion in the opinion of the staff that he has improved in response to aripiprazole. -The patient's main objection to aripiprazole oral solution is that he does not like the way it tastes, and within this context, he tells us that he is willing to accept Abilify Maintenaand requests that it be injected into his buttock. Abilify Maintena 300 mg IM ordered, and oral Abilify discontinued. We will resume oral Abilify if the patient subsequently changes his mind and refuses the injection. 03/07 resuming Abilify oral given his refusal of FARAH form of Abilify 03/08 is taking Abilify po form but refusing Abilify Maintena form. advise close monitoring for potential of checking given pt's tendency to not want to take medications. 03/09 -The patient is flatly refusing to take aripiprazole in the form of Abilify Maintena. He is also been hesitant to take oral Abilify, but has been doing so. -The patient's lack of cooperation is thought possibly to be related to an un-expressed desire to not be discharged back to the community. He told me to day that he left his meeting with his community providers after a few seconds because "just the side of them made me extremely anxious. My pulse elevated to 140." Later, he told me that he was still anxious about it and his pulse was "still around 130." The patient allowed me to take his pulse, and it was approximately 76. At that point he said, "did I say pulse? I meant systolic blood pressure." And when I pointed out that his systolic blood pressure of 130 is not considered to be a particular concern, he said "I mean diastolic." -Our hope had been that the patient would agree to accept a Depo form of medication. He was refusing Haldol Decanoate because of various side effects. Risperidone constant was ruled out as a first-line Depo medication because of the frequency of administration (the patient tends to get into power struggles over medications) and because he says that he is sensitive to "big needles." Invega would be an option, but currently the patient is being so uncooperative that our concern would be that he would cheek the oral tablets that we would have to give him first. Accordingly, the new strategy will be to discontinue Abilify, and resume olanzapine with olanzapine IM over objection if necessary. We will begin the olanzapine Zydis 20 mg at bedtime 03/10 -The patient took the prescribed dose of olanzapine Zydis 20 mg at bedtime last night. Today, he tells me that it "did not help at all." However, staff report that he has been somewhat more agreeable, more pleasant, and less paranoid today. -As he has with other providers, today he told me that I should have given him olanzapine 5 mg "to start", and I explained that he was already on olanzapine 20 mg when he came into the hospital and we know that he is able to tolerate that dose. He tells me that he did, in fact tolerate the dose and is not aware of any side effects, but, somewhat illogically, insisted that the dose was "too high for a starting dose." 03/11 - Continue current medication regimen at this time - olanzapine 20mg daily - Encourage participation in the milieu and in group programming as tolerated 03/12 -Continue current medication regimen. The patient's condition has not yet improved. -The patient does participate in select groups, but often tends to be disruptive. 03/13 -Today, the patient seems to be somewhat more cooperative and less frankly delusional. It was possible to engage in a mostly reality based conversation for 5 or 10 minutes at a time. Also, although he was unhappy with me when I refused to provide him with a dose of Valium for anxiety, he was able to remain pleasant and calm at this time, did not storm from the room." 03/14 and 03/15 -no change in medication will work on therapeutic alliance given patient is not participating 03/16 -304 involuntary commitment granted. -Patient remains completely uncooperative with treatment, refused his Zyprexa Zydis last evening, but then ultimately took it before he received the injection. I have a high suspicion for cheeking of antipsychotic medication, and we will continue to be vigilant with mouth checks, and work towards a long- acting injectable. 03/17 -Patient has been on Zyprexa 20 mg at bedtime for 1 week, with limited response. He is refusing to discuss other medication options. Per records, he has been prescribed up to 30 mg olanzapine in the past, so will increase his dose to this previously tolerated dose, as it is 1 of the few medications he has been willing to take. Continue IM backup for refusal, and Zyprexa Zydis formulation to decrease risk of cheeking. He is not compliant with mouth checks, but have asked staff to try to observe him for 10 minutes after taking the Zydis to ensure he is not spitting it out before it dissolves. 03/18 -Continue Zyprexa Zydis 30 mg at bedtime with IM backup. Consider switch to a different medication (?oral paliperidone with IM backup) if irritability and agitation continues. He has tried virtually every atypical antipsychotic and reports none of them were effective (although some trials were short due to nonadherence) and has a history of dystonia on haloperidol. Clozapine would be a reasonable choice, but he has been unwilling to even discuss medication options. -Consider some component of cognitive decline which could be contributing to his worsening presentation and will need to be monitored and worked up further once he is more psychiatrically stable. -Refer to [facility] in the event that he does not improve and long-term inpatient treatment is needed. 03/19 - Proceed with [facility] referral. 03/20 - Continue current medication regimen; patient refused EKG and CXR yesterday - refused again today - Continue attempts to gather information to make a referral to [facility] 03/23 - Proceed with [facility] referral - patient has refused EKG and CXR for multiple attempts. We will send most recent tests available - Continue current medication regimen at this time 03/24 -Attempted to hold diversion meeting with his outpatient [facility], correction director, and the [facility]; patient refused to attend or participate in the meeting. 03/25 - 03/26 - Continue treatment plan as above - no change in patient's condition and he remains unwilling to participate meaningfully in treatment - Continue with [place] referral 03/27 -The patient has been informed that the plan at this point is to transfer him to [facility] for long-term inpatient psychiatric treatment, given his refusal to adhere with treatment and his associated behaviors in the community when not adherent with psychiatric treatment. -The patient continues to refuse mouth checks after given dosages of Zyprexa Zydis, and there is some question regarding whether he is actually ingesting this medication. He also would not cooperate with laboratory testing. -There has been a question regarding the patient's cognitive functions, and prior to admission he had been taking Aricept. When he does cooperate with this, I have not seen evidence of any substantial cognitive impairment. He may have mild cognitive impairment, but does not fully cooperate with formal cognitive assessment. He easily recalls the names of his providers, the names of the medications he is taking, the names of the various infectious agents that he believes are causing some of his psychiatric symptoms, the names of certain chemicals that he believes will rid him of the reference to infections, and is able to discuss current events such as recent news items. His assertion that he wants to return to his apartment in the community seems belied by his steadfast refusal to cooperate with those interventions I would make it possible for him to return, and there is some suspicion that although the patient remains floridly psychotic he may also be intentionally sabotaging discharge. 03/28 - 03/30 -There is been no private branch exchange service adviser the past 2 weeks, and long-term inpatient treatment at the [facility] is indicated. 03/31 - Continue current medication regimen - Pt briefly verbalized willingness for FARAH, but was not agreeable to medication adjustments to allow for this to be possible - If he should change his mind; recommendation is for trial of Invega orally to establish tolerability, then consideration for Invega Sustenna - unwilling for this today 04/01 - 04/03 - Continue current medication regimen - Continues to refuse FARAH, will continue discussion daily as this is the reported preference of his CRR 04/04 -Questionable positive PPD measuring 13 mm but history of confinement places him at higher risk. Patient refused chest x-ray today but we will reapproach. No active symptoms of infection. Order for sputum culture and smear today for confirmation. 04/05 -PPD now appears negative. Would suggest follow through with sputum smear and culture for confirmation as previously ordered -Continue treatment plan as above 04/06 - PPD reportedly negative, patient unable to follow-up with sputum smear - therefore discontinued - Continue medication regimen as above - unwilling to discuss conversion to an FARAH - Meeting today with representation from [facility] to discuss discharge planning 04/07 - Continue medication regimen as above - remains unwilling to discuss changes - Additional meeting with CRR and CM scheduled for next week - We have been regularly assessing patient's condition and appropriateness to go outside since his 30-day treatment plan review. As patient continues to be unwilling to participate in a meaningful conversation with providers regarding his condition, we continue to be unable to determine if he is appropriate to be taken off the unit - therefore will await ability to discuss the topic in a meaningful way prior to making this determination. Will continue regular evaluation. 04/08 - 04/12 - Continue current medication regimen, as patient unwilling to discuss changes - Attempted again to determine if appropriate to go outside, patient unwilli ng to participate in conversation despite being told the goal of allowing him to go outside - Meeting with CM and CRR director scheduled for 04/13 at 1030 04/13 - Continue Zyprexa 30mg daily - unwilling to engage in conversation to discuss changes - Remains unwilling to engage in conversation to determine if he is appropriate to go outside, he has been made aware this is a possibility for him - Meeting for attempted diversion resulted in decision to no longer hold patient's CRR bed, [place] admission is supported based on little to no improvement since admission and limited willingness to engage in conversations regarding medication adjustments - We have been asked to attempt to get a QuantiFERON-TB Gold Plus test, despite negative PPD reading within acceptable timeframe - pt unwilling to engage in conversation to obtain consent, further indicating why long-term inpatient psychiatric hospitalization is necessary. Will continue to attempt to gain consent for this testing to be completed 04/15 -The patient is slightly more communicative today and that he does answer at least one question which was whether he would be in agreement if we offered him a drug holiday from olanzapine. His response was in the affirmative.. He also said "thank you." -The patient continues to appear suspicious and he clearly is angry at and unwilling to cooperate with staff. He is particularly bumptious with individuals who he sees as not fully trained and fully qualified. -The plan remains transfer to the [facility] for long-term psychiatric care. Our hope remains that we will be able to divert the patient from the [facility], but the patient, as noted above, remains uncommunicative and resistant. Perhaps contributing to the patient's obvious anger and distress is the fact that he has learned this week that his residential program is unwilling to allow him to return and has stopped holding his bed for other individuals. 04/16 - Continue current treatment plan, which includes holiday from olanzapine as a rapport building attempt, and due to concerns that he is more irritable and resistant to treatment - which is obviously not beneficial for his overall condition. - Attempted to communicate with the patient today via written/printed text - will add addendum to this note if patient was willing to complete the sheet and respond to questions 04/21 -Patient remains uncooperative and unwilling to participate in interviews, but has been out of his room more and attending some groups. He remains unwilling to discuss treatment options, including antipsychotic medication. 04/22 - Patient remains unwilling for medications, but is interacting with peers appropriately and attending groups. Will try discontinuing private room and placing him with a roommate, is perhaps increased socialization will be therapeutic for him. 04/23 -no change, patient still unwilling for medications(other than marijuana and benzos) 04/24 -The patient remains angry, suspicious, and largely uncommunicative. He spoke briefly with the attending psychiatrist today in order to request privileges to go outdoors with staff, and was able to cooperate with a fresh air break, but subsequently was angry, bumptious, and willing to cooperate with assessments. 04/25 - Valium 5mg dose yesterday appeared to lead to some disinhibited verbally agitated behavior, with the Valium dose being discontinued following that one dose. Pt is fixated on Valium and on temazepam. refusal to take other medications with. Handling a roommate decently currently. Pt refusing to attend groups. Limited engagement with peers and staff occurring. no change to plan today 04/26 no change to plan today 04/27 -The patient cooperated with an interview today after several weeks of flatly refusing, sometimes rudely refusing to speak to providers. Today, the patient not voiced any delusional material and was able to specifically answer questions regarding perceptual disturbances. 04/28 -no change. 04/29 -start ziprasidone 20 mg twice daily with meals. Reviewed risks, benefits and common side effects including sedation and the need to take with food. 04/30 maintained ziprasidone at current dose today given pt's tendency to refuse medications mikey if notice any s/e, considering raising dose tomorrow 05/01 -Based on the patient's behavior today there seems to be no evidence that the patient is enjoying any particular benefit from ziprasidone. To the contrary, he may have become more bumptious and withdrawn. My recommendation is that we continue to observe him on ziprasidone 20 mg twice a day before increasing his dose further, possibly over the weekend. 05/02 -continue current medication and consider dose increase next week. It is likely that it will take weeks to show benefit from antipsychotic medication given the severity and chronicity of his symptoms, and his history of treatment resistance. He would be a good candidate for clozapine, but has never been willing to consider it. 05/03 -increase ziprasidone to 40 mg twice daily with food. Continue to encourage group attendance. 05/04 - Continue recently increased dose of ziprasidone 40mg BID with food 05/05 - Continue as above; limited change in presentation at this time 05/06 - Pt agreeable to titrating ziprasidone to 60mg BID, starting with this evening's dose. - Is superficially cooperative with conversation, but remains resistant to unit programming and more in-depth interactions with staff - Continues to be unable/unwilling to discuss status of delusional beliefs; however, appear to be ongoing as patient has reported that he is to be discharge, that there is a court order for him to leave, and that he has an apartment secured to move into - despite not having contact with individuals other than his skilled nursing case manager 05/07 - Continue as above, limited change in presentation 05/08 - Continue as above, consider need for further titration of ziprasidone - Limited change in presentation, but has been superficially pleasant 05/09 - continue as above, considering potential to further titrate ziprasidone 60mg bid with meals, as pt was more willing to engage marketing copywriter even more then prior times (last seen by this marketing copywriter about 9 days ago) will maintain as is for now but considering raising to 80mg bid, 05/10 continue plan unchanged (2) Substance abuse: 02/25 - Pt has reported history of substance abuse, and recommendation has consistently been for avoidance of substances with significant abuse potential. - PDMP queried - most recent prescriptions below - lorazepam 0.5mg #60 tabs for 30 day supply - Dr. Alves - filled 02/12/2019 - alprazolam 0.5mg #90 tabs for 30 day supply - Dr. Lopez - filled 01/16/2019 - temazepam 30mg #30 caps for 30 day supply - Dr. Lopez - filled 01/16/2019 - Will continue lorazepam 0.5mg BID prn on admission, as only medication that is seemingly active - toxicology screen is negative for benzodiazepines, which questions if he has been taking the medication appropriately - Ideally will taper and discontinue the lorazepam, as recommendation remains that substances with abuse potential be avoided 02/26 -The patient's outpatient providers, during a meeting this morning, report that the patient tends to successfully convince physicians to prescribe benzodiazepines for him and that, in the past, he has abused him to the degree that he is practically obtunded. 02/27 -A repeat check of the PDMP reveals that the patient is consistently being prescribed lorazepam 0.5 mg twice daily (number 60/month) by a Dr. Brent Alves. He is also being prescribed alprazolam 0.[address] mg [address] Jeff Lopez, with the most recent previous prescription of alprazolam being on 01/16/[address] Lopez also prescribed temazepam 30 mg capsules #30 on 01/16/2019. According to his residential providers, no temazepam capsules were found among the patient's belongings. His most recent prescription for lorazepam 0.5 mg tablets was filled on 02/12/2019. 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 In t he past, he reportedly has used clonazepam and temazepam. -I advised the patient that because of his history of misuse of benzodiazepines we would not be prescribing benzodiazepines during his hospital stay. An as needed order for lorazepam has not been used during hospital stay, and I discontinued the order today. 03/02 - Will need to coordinate care with his PCP and outpatient psychiatrist you or to discharge regarding the above. 03/04 - Charge nurse spoke with the above offices regarding concern for continued benzodiazepine prescriptions - Records will be faxed to their offices on discharge, as all benzodiazepines were discontinued during this hospitalization 03/06 -The patient did not request benzodiazepines and did not complain of anxiety today. I suggested to him that perhaps Abilify is also helping with anxiety in his case, and he responded by saying "perhaps." 03/09 -Today, the patient is insisting that what he needs is "benzodiazepines," and explains that the reason he "needs" benzodiazepines is that he has "benzodiazepine receptors," and that he is the only medications that work. He is unable to process warnings about the risks of benzodiazepines in the elderly, including increased risk of falls and mortality. Clearly, the patient is seeking benzodiazepines and has no insight into the associated risks. He also insists that he has never had trouble with benzodiazepines in the past, although there is well-documented of this. 03/10 -Today, the patient repeated his insistence that he needs benzodiazepines and that benzodiazepines are the only medications that work because he has "benzodiazepine receptors." After being told that everyone has central nervous system receptors to which benzodiazepines may attach, he replied, "That may be, but some of people need to have benzodiazepines forearm benzodiazepine receptors. 03/12 -Continues to request Benzodiazepines. 03/13 -Requests Valium for his "benzodiazepines receptors." 03/27 -Refuses to cooperate with assessment today, but has recently told staff that he needs "either Valium or Ativan." -The patient apparently has no working insight into his history of abuse of prescription medications (benzodiazepines). 04/15 -The patient has not reference to request for benzodiazepines recently. However, the context is that he has not communicated much of anything directly, a other than the occasional need for self-care items. 04/24 -Today, the patient repeats his request for benzodiazepines, and insists that he is "supposed" to be taking diazepam 10 mg 3 times a day and temazepam for sleep every night. 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 Unfortunately, the exact opposite seems to have occurred. Not only was the patient was uncooperative subsequent to a dose of Valium, he seems to have been disinhibited by it and shouting "get out" or "get away" several times when approached by staff 04/25 - pt focused on seeking temazepam, or Valium 04/27 -The patient does have a history of substance dependence. However, the current plan and expected disposition is for the patient to be transferred to an extended care inpatient psychiatric unit where abuse of prescribed medications is unlikely to occur. Today, the patient calmly requests temazepam and says that he has tried a number of different sleeping pills, but "that is the one that works." The patient is also able to clearly say that he understands that temazepam is physically habituating that there are associated risks associated with temazepam including, but not limited to, a risk of falls, accidents, confusion, and depression. He tells us that at prescribed dosages he has not had any of these problems in the past. -Today, I agreed to a trial of temazepam 15 mg at bedtime, a dose that the patient says has been effective in the past. 04/30 close monitoring of temazepam given above, so far not taken 05/01 -After persistently insisting that he had to have temazepam in order to sleep and that nursing staff reports that he is sleeping through the night are wrong because he tends to rest with his eyes closed, the patient has not ask for temazepam and has not been given temazepam since it was ordered a week ago. The patient declined to explain why he has not ask for it, and refuses to answer questions today as to whether he is sleeping well without. In fact, when asked to explain why he had not taken any after insisting on having a prescribed, he shouted "get the hell out!!." Perhaps the patient has forgotten that it was ordered, but he seemed to remember the day after it was ordered and ask for not asked for it since. Our thought is that he may have somehow incorporated the order for temazepam into his delusional when belief system, based on his rage when asked to explain why he hasn't asked for it. (3) Hypertension: 02/25 - Continue home dose of clonidine 0.1mg qHS 03/01 Watch mildly elevated blood pressures as patient has been refusing clonidine 03/03 - BP normal past two days, and low today 03/10 -The patient's blood pressure today was 136/73. His pulse was 71 03/14 - elevated BP it is not urgent but will need monitored. 03/15 - BP WNL 03/26 - BP continues to be WNL 04/02 - BP remains within normal limits; continue daily vitals per standard admission order set - Will consider acute phase of this problem resolved at this time Risk Factors Assessment Male: Yes : Yes Do You Have Access To A Gun?: No Health Problems: Yes Mental Health Diagnoses: Yes Substance Use Disorders: Yes Protective Factors Assessment Christianity Beliefs: No : No Responsible for Young Children: No Employed: No Stable Relationships: No Supportive Family: No Good Rapport with Provider: No Absence of Any Risk Factors Above: No Interval History Identifying Information SCOTT ROBERTO is a 73-year-old M who currently lives at a [facility] in [place], has a history of schizophrenia, and is known to our unit from several previous admissions, most recently in 09/2016. He was admitted on 02/24/19 16:40 on a 302 involuntary commitment for exacerbation of schizophrenia and heightened paranoia resulting in belief he needed to hide in a dumpster to seek refuge from impending bombings. He was found by [facility] staff and brought to the ED by police, and is on a 304 involuntary commitment as of 03/16/19. He has been referred to [facility] for long term care social worker treatment. Chief Complaint "alright". Review of Systems Sleep Information Total Hours of Sleep: 7.5 Sleep Comments: pt on q-15 minute checks Meal Information Percent Meal Consumed - Breakfast: 100 Percent Meal Consumed - Lunch: 100 Percent Meal Consumed - Dinner: 100 Nutrition Comment: per meal record Subjective Subjective Patient was seen & assessed and interval progress reviewed with nursing and social work Pt contonues to appear to be complaint with taking geodon 60mg bid with food, pt does not view it as having any s/e or overt impact on him. He denies any concerns besides poor sleep (meaning light sleep) HE states his muscles are not stiff today. He denied doing any stretching though. Pt been superficially pleasant and polite, denied s/e to geodon Physical Exam Psychiatric Orientation: alert, oriented x 3 and cooperative Apperance: appropriately dressed, appropriately groomed and appeared stated age Eye Contact: good eye contact Motor Behavior: steady gait and station, no abnormal motor movements (observed while sitting upright on edge of bed) and + tremor Speech: normal rate/rhythm/volume of speech (nonspontaneous, brief but pleasant responses to questions); no pressured speech Affect: + constricted affect; no anxious affect and no angry affect Mood: no depressed mood ("Fine"), no anxious mood, no irritable mood ("I'm ok") and no angry mood Thought Process: goal directed thought process and + concrete thought process; + thought association not intact Thought Content: + preoccupation, + cognitive distortions, reality based without delusions (No delusional material was elicited during the interview. The patient does remain guarded and tends not to elaborate a great deal), + delusions (does not verbalize delusional beliefs, but likely ongoing ) and + persecution Suicidal Thoughts: denies suicidal thoughts and denies suicidal intent Homicidal Thoughts: denies homicidal thoughts Hallucinations: no auditory hallucinations, no visual hallucinations, no tactile hallucinations and no gustatory hallucinations Cognition: remote memory grossly intact, attention grossly intact and language grossly intact; + recent memory not intact Estimated Intelligence: consistent with education level and + above average estimated intelligence Insight: + impaired insight Judgement: + impaired judgement Vital Signs (Past 24 Hours) Last Vital Signs Temp 36.4 C L 05/10/19 06:43 Pulse 55 L 05/10/19 06:44 Resp 16 05/10/19 06:43 BP 107/71 05/10/19 06:44 Pulse Ox 96 02/24/19 08:10 Results & Data Current Inpatient Medications Current Inpatient Medications: Current Inpatient Medications Acetaminophen (Tylenol) 650 mg PO Q4H PRN PRN Reason: Headache or Minor Fever Stop: 05/23/19 08:14 Al Hydrox/Mg Hydrox/Simethicone (Maalox) 30 ml PO Q4H PRN PRN Reason: GI Upset Stop: 05/23/19 08:14 Benztropine Mesylate (Cogentin) 0.5 mg PO BID PRN PRN Reason: dystonia Stop: 05/23/19 08:14 Bismuth Subsalicylate (Kaopectate) 15 ml PO PRN PRN PRN Reason: Loose Stool Stop: 05/23/19 08:14 Clonidine HCl (Catapres) 0.1 mg PO HS MAG Stop: 05/23/19 21:59 Last Admin: 05/09/19 20:35 Dose: 0.1 mg Documented by: Cyanocobalamin (Vitamin B-12) 500 mcg PO DAILY MAG Stop: 05/23/19 08:59 Last Admin: 05/10/19 08:42 Dose: 500 mcg Documented by: Hydroxyzine HCl (Vistaril) 25 mg PO Q4H PRN PRN Reason: Anxiety Stop: 05/23/19 08:14 Hydroxyzine HCl (Vistaril) 50 mg PO HSZ PRN PRN Reason: Insomnia Stop: 05/23/19 08:14 Magnesium Hydroxide (Milk Of Magnesia) 30 ml PO DAILY PRN PRN Reason: Heartburn Stop: 05/23/19 08:19 Magnesium Oxide (Mag-Ox) 400 mg PO DAILY MAG Stop: 05/23/19 08:59 Last Admin: 05/10/19 08:41 Dose: 400 mg Documented by: Miscellaneous (Remove Nicoderm Patch) 1 ea N/A HS MAG Stop: 05/23/19 21:59 Last Admin: 05/09/19 20:37 Dose: Not Given Documented by: Multivitamins (Multivitamin Tab) 1 tab PO DAILY MAG Stop: 05/23/19 08:59 Last Admin: 05/10/19 08:41 Dose: 1 tab Documented by: Nicotine (Nicoderm Cq) 14 mg TD QAM MAG Stop: 05/23/19 08:59 Last Admin: 05/10/19 08:42 Dose: Not Given Documented by: Olanzapine (Zyprexa) 10 mg IM HS PRN PRN Reason: Undecided Stop: 05/23/19 08:19 Pyridoxine HCl (Vitamin B-6) 100 mg PO DAILY MAG Stop: 05/23/19 08:59 Last Admin: 05/10/19 08:42 Dose: 100 mg Documented by: Sodium Chloride ([place] Nasal) 1 - 2 sprays NA PRN PRN PRN Reason: Nasal Dryness/Congestion Stop: 05/23/19 08:19 Ziprasidone (Geodon) 60 mg PO BIDM MAG Stop: 06/05/19 17:44 Last Admin: 05/10/19 08:41 Dose: 60 mg Documented by: Mental Health & Subst Abuse Tx Therapist Name of Therapist: Sammy Bolt Sawyer Name of Bolt Sawyer: Shruti Collins Resendez Tasiajose Phone Number for Bolt Sawyer: Case Management Appointment Comment: [phone], [place] [address] Post Discharge Appointments Primary Care Physician Name Of Family Doctor: Dr. Lopez Contact Information Discharge Discharge Address: [address] [place] [address], [place] [address] CPT Code CPT Code 51809 [id number] (1) Schizophrenia Schizophrenia type: paranoid schizophrenia Qualified Code(s): F20.0 - Paranoid schizophrenia (2) Hypertension Hypertension type: essential hypertension Qualified Code(s): I10 - Essential (primary) hypertension
[2019-05-10] MEDS: cloNIDine HCL 0.1 MG TAB PO SCH (21:08)
[2019-05-11] MEDS: NICOTINE 14 MG/24 HR PATCH TD SCH (08:38)
[2019-05-11] MEDS: PYRIDOXINE HCL 50 MG TAB PO SCH (08:38)
[2019-05-11] MEDS: MAGNESIUM OXIDE 400 MG TAB PO SCH (08:38)
[2019-05-11] MEDS: ZIPRASIDONE HCL 20 MG CAP PO SCH ×2 (08:38→17:28)
[2019-05-11] MEDS: MULTIVITAMIN TAB PO SCH (08:38)
[2019-05-11] MEDS: CYANOCOBALAMIN 500 MCG TABLET (VITAMIN B-12) PO SCH (08:38)
--- NOTE | 2019-05-11 12:22 | Psychiatric Progress Note ---
Date of Service May 11, 2019 Impression / Recommendations Impression Patient remains poorly engaged in treatment, refusing most groups. He has been showing some mild improvement in his condition, and is at least superficially pleasant with interactions with staff. Pt was improving to the point of his private room being discontinued, which he has tolerated thus far. Pt has been accepted at the [facility] since 04/02/2019, we still do not have a bed date. Discussed that the county will likely be contacted to discuss if a diversion plan should be considered. He does intermittently verbalize ongoing delusional beliefs, but these have been ongoing for a long time. Pt has been compliant with trial of ziprasidone, titrated to 60mg BID. Would consider further titration to 80mg BID; however, patient unwilling to engage in conversation today after a reportedly challenging meeting with his correctional casework specialist. Given the chronicity and severity of his condition, it may take weeks to see benefit from medication. The current plan is for the patient to be transferred for long-term psychiatric hospitalization, given his inability to cooperate with treatment, given his inability to attend his own physical needs without the availability of the full spectrum of psychiatric services at the inpatient level of care, and ongoing psychosis with auditory hallucinations and paranoia. Will continue to explore if there is a possibility for a diversion plan, given some improvements seen during his admission. (1) Schizophrenia: 02/25 - Continue home medication regimen - as refusing offerings of his antipsychotic, will likely require olanzapine IM (or alternative agent) over objection, given clear evidence of paranoia and delusional thought process - previously stabilized on this medication - Pt agreeable to taking all other medications, with exception of antipsychotic as mentioned above - Admitted to a locked inpatient behavioral health unit, on q15 minute safety checks - Encourage medication initiation/adjustments as indicated - Encourage participation in group and recreational therapies - Gather collateral information from outpatient providers and [facility] staff - Suggest family meeting to involve outpatient supports in safety planning - Reschedule appropriate aftercare appointments 02/26 -Patient indicates willingness to sign a release for the CRR [facility], will get collateral from their staff. -File for 303 involuntary commitment to be held tomorrow. -Recommend medications over objection, with an IM Zyprexa backup for refusal of oral medication. Involve outpatient treatment team to discuss ways to improve stability and compliance; consider long-acting injectable antipsychotic. -Order fasting labs for monitoring on an atypical antipsychotic once patient is more cooperative. 02/27 -The patient was retrained at his involuntary commitment hearing (303) this morning. -He has continuously and consistently refused psychiatric medications to date. However, today, when I explained that that a option that might become necessary in his case is medication over objection, and an intramuscular form, the patient said that he understood and that he would try medications that I prescribe. His initial preference would be olanzapine, but because olanzapine is not available in a long acting depot form, we would first like to try aripiprazole. He indicates that he is taken aripiprazole in the past and has been able to tolerate it, although he does not believe that it has been particularly helpful. -A trial dose of aripiprazole 15 mg by mouth, as a one-time dose, has been ordered and he assessed for efficacy. 02/28 -Appears to be tolerating initiation of Abilify so far. Remains delusional, paranoid. May consider further titration tomorrow -Aricept discontinued at patient's request on 02/27/2019. The medication has not been demonstrated to be efficacious for cognitive impairment associated with long-standing schizophrenia however we should be vigilant for slowing of mentation following discontinuation. 03/01 Patient fixated and irrational regarding access to clothing item as above today. Hospital environment becoming incorporated and delusions. Consider possibility that the aripiprazole is contributing to activation. We will increase to 20 mg tomorrow and also start Risperdal 1 mg p.o. twice daily as as needed. 03/02 - Continue with aripiprazole at 20mg daily, consider need for further titration - if tolerating and effective, eventual plan will be for conversion to Abilify Maintena - Pt has not yet utilized risperidone 03/03 - Increase aripiprazole to 25mg (equivalent to 30mg pill) and change to liquid formulation to decrease risk of cheeking/nonadherence, as patient does not believe he needs medication and had been noncompliant prior to hospitalization. - Fasting glucose and lipid profile ordered for tomorrow for monitoring on an atypical antipsychotic. - Private room due to psychosis, agitation, and inappropriate disrobing/sexual behavior. - Meeting with BCM and CRR staff when patient able to tolerate. 03/04 - Continue aripiprazole 25mg liquid (30mg pill equivalent) and continue to observe for improvement in thought process/content - consider conversion to Maintena if effective, versus trial of another agent if improvement remains limited - Fasting labs reviewed - all values WNL - Continue medically necessary private room - Request meeting with CRR staff, in order to obtain details about patient's proximity to baseline 03/05 -Patient refusing liquid aripiprazole, but agrees to take the pill: Ordered 30 mg daily. -Schedule meeting with his correctional casework specialist, CRR and psych rehab staff. Consider involuntary outpatient commitment at the time of discharge. 03/06 -The patient has improved in that he is more reality based at this point. He continues to harbor fixed, systematized delusions, but is generally able to focus on reality based topics. -Although the patient tells me that he does not feel that aripiprazole has been effective, he is able to accept my opinion in the opinion of the staff that he has improved in response to aripiprazole. -The patient's main objection to aripiprazole oral solution is that he does not like the way it tastes, and within this context, he tells us that he is willing to accept Abilify Maintenaand requests that it be injected into his buttock. Abilify Maintena 300 mg IM ordered, and oral Abilify discontinued. We will resume oral Abilify if the patient subsequently changes his mind and refuses the injection. 03/07 resuming Abilify oral given his refusal of FARAH form of Abilify 03/08 is taking Abilify po form but refusing Abilify Maintena form. advise close monitoring for potential of checking given pt's tendency to not want to take medications. 03/09 -The patient is flatly refusing to take aripiprazole in the form of Abilify Maintena. He is also been hesitant to take oral Abilify, but has been doing so. -The patient's lack of cooperation is thought possibly to be related to an un-expressed desire to not be discharged back to the community. He told me today that he left his meeting with his community providers after a few seconds because "just the side of them made me extremely anxious. My pulse elevated to 140." Later, he told me that he was still anxious about it and his pulse was "still around 130." The patient allowed me to take his pulse, and it was appr oximately 76. At that point he said, "did I say pulse? I meant systolic blood pressure." And when I pointed out that his systolic blood pressure of 130 is not considered to be a particular concern, he said "I mean diastolic." -Our hope had been that the patient would agree to accept a Depo form of medication. He was refusing Haldol Decanoate because of various side effects. Risperidone constant was ruled out as a first-line Depo medication because of the frequency of administration (the patient tends to get into power struggles over medications) and because he says that he is sensitive to "big needles." Invega would be an option, but currently the patient is being so uncooperative that our concern would be that he would cheek the oral tablets that we would have to give him first. Accordingly, the new strategy will be to discontinue Abilify, and resume olanzapine with olanzapine IM over objection if necessary. We will begin the olanzapine Zydis 20 mg at bedtime 03/10 -The patient took the prescribed dose of olanzapine Zydis 20 mg at bedtime last night. Today, he tells me that it "did not help at all." However, staff report that he has been somewhat more agreeable, more pleasant, and less paranoid today. -As he has with other providers, today he told me that I should have given him olanzapine 5 mg "to start", and I explained that he was already on olanzapine 20 mg when he came into the hospital and we know that he is able to tolerate that dose. He tells me that he did, in fact tolerate the dose and is not aware of any side effects, but, somewhat illogically, insisted that the dose was "too high for a starting dose." 03/11 - Continue current medication regimen at this time - olanzapine 20mg daily - Encourage participation in the milieu and in group programming as tolerated 03/12 -Continue current medication regimen. The patient's condition has not yet improved. -The patient does participate in select groups, but often tends to be disruptive. 03/13 -Today, the patient seems to be somewhat more cooperative and less frankly delusional. It was possible to engage in a mostly reality based conversation for 5 or 10 minutes at a time. Also, although he was unhappy with me when I refused to provide him with a dose of Valium for anxiety, he was able to remain pleasant and calm at this time, did not storm from the room." 03/14 and 03/15 -no change in medication will work on therapeutic alliance given patient is not participating 03/16 -304 involuntary commitment granted. -Patient remains completely uncooperative with treatment, refused his Zyprexa Zydis last evening, but then ultimately took it before he received the injection. I have a high suspicion for cheeking of antipsychotic medication, and we will continue to be vigilant with mouth checks, and work towards a long- acting injectable. 03/17 -Patient has been on Zyprexa 20 mg at bedtime for 1 week, with limited response. He is refusing to discuss other medication options. Per records, he has been prescribed up to 30 mg olanzapine in the past, so will increase his dose to this previously tolerated dose, as it is 1 of the few medications he has been willing to take. Continue IM backup for refusal, and Zyprexa Zydis formulation to decrease risk of cheeking. He is not compliant with mouth checks, but have asked staff to try to observe him for 10 minutes after taking the Zydis to ensure he is not spitting it out before it dissolves. 03/18 -Continue Zyprexa Zydis 30 mg at bedtime with IM backup. Consider switch to a different medication (?oral paliperidone with IM backup) if irritability and agitation continues. He has tried virtually every atypical antipsychotic and reports none of them were effective (although some trials were short due to nonadherence) and has a history of dystonia on haloperidol. Clozapine would be a reasonable choice, but he has been unwilling to even discuss medication options. -Consider some component of cognitive decline which could be contributing to his worsening presentation and will need to be monitored and worked up further once he is more psychiatrically stable. -Refer to [facility] in the event that he does not improve and long-term inpatient treatment is needed. 03/19 - Proceed with [facility] referral. 03/20 - Continue current medication regimen; patient refused EKG and CXR yesterday - refused again today - Continue attempts to gather information to make a referral to [facility] 03/23 - Proceed with [facility] referral - patient has refused EKG and CXR for multiple attempts. We will send most recent tests available - Continue current medication regimen at this time 03/24 -Attempted to hold diversion meeting with his outpatient BCM, [facility] director, and the [facility]; patient refused to attend or participate in the meeting. 03/25 - 03/26 - Continue treatment plan as above - no change in patient's condition and he remains unwilling to participate meaningfully in treatment - Continue with [facility] referral 03/27 -The patient has been informed that the plan at this point is to transfer him to [facility] for long-term inpatient psychiatric treatment, given his refusal to adhere with treatment and his associated behaviors in the community when not adherent with psychiatric treatment. -The patient continues to refuse mouth checks after given dosages of Zyprexa Zydis, and there is some question regarding whether he is actually ingesting this medication. He also would not cooperate with laboratory testing. -There has been a question regarding the patient's cognitive functions, and prior to admission he had been taking Aricept. When he does cooperate with this, I have not seen evidence of any substantial cognitive impairment. He may have mild cognitive impairment, but does not fully cooperate with formal cognitive assessment. He easily recalls the names of his providers, the names of the medications he is taking, the names of the various infectious agents that he believes are causing some of his psychiatric symptoms, the names of certain chemicals that he believes will rid him of the reference to infections, and is able to discuss current events such as recent news items. His assertion that he wants to return to his apartment in the community seems belied by his steadfast refusal to cooperate with those interventions I would make it possible for him to return, and there is some suspicion that although the patient remains floridly psychotic he may also be intentionally sabotaging discharge. 03/28 - 03/30 -There is been no chemical cell changer the past 2 weeks, and long-term inpatient treatment at the [facility] is indicated. 03/31 - Continue current medication regimen - Pt briefly verbalized willingness for FARAH, but was not agreeable to medi cation adjustments to allow for this to be possible - If he should change his mind; recommendation is for trial of Invega orally to establish tolerability, then consideration for Invega Sustenna - unwilling for this today 04/01 - 04/03 - Continue current medication regimen - Continues to refuse FARAH, will continue discussion daily as this is the reported preference of his CRR 04/04 -Questionable positive PPD measuring 13 mm but history of confinement places him at higher risk. Patient refused chest x-ray today but we will reapproach. No active symptoms of infection. Order for sputum culture and smear today for confirmation. 04/05 -PPD now appears negative. Would suggest follow through with sputum smear and culture for confirmation as previously ordered -Continue treatment plan as above 04/06 - PPD reportedly negative, patient unable to follow-up with sputum smear - therefore discontinued - Continue medication regimen as above - unwilling to discuss conversion to an FARAH - Meeting today with representation from [facility] to discuss discharge planning 04/07 - Continue medication regimen as above - remains unwilling to discuss changes - Additional meeting with CRR and CM scheduled for next week - We have been regularly assessing patient's condition and appropriateness to go outside since his 30-day treatment plan review. As patient continues to be unwilling to participate in a meaningful conversation with providers regarding his condition, we continue to be unable to determine if he is appropriate to be taken off the unit - therefore will await ability to discuss the topic in a meaningful way prior to making this determination. Will continue regular evaluation. 04/08 - 04/12 - Continue current medication regimen, as patient unwilling to discuss changes - Attempted again to determine if appropriate to go outside, patient unwilling to participate in conversation despite being told the goal of allowing him to go outside - Meeting with CM and CRR director scheduled for 04/13 at 1030 04/13 - Continue Zyprexa 30mg daily - unwilling to engage in conversation to discuss changes - Remains unwilling to engage in conversation to determine if he is appropriate to go outside, he has been made aware this is a possibility for him - Meeting for attempted diversion resulted in decision to no longer hold patient's CRR bed, [facility] admission is supported based on little to no improvement since admission and limited willingness to engage in conversations regarding medication adjustments - We have been asked to attempt to get a QuantiFERON-TB Gold Plus test, despite negative PPD reading within acceptable timeframe - pt unwilling to engage in conversation to obtain consent, further indicating why long-term inpatient psychiatric hospitalization is necessary. Will continue to attempt to gain consent for this testing to be completed 04/15 -The patient is slightly more communicative today and that he does answer at least one question which was whether he would be in agreement if we offered him a drug holiday from olanzapine. His response was in the affirmative.. He also said "thank you." -The patient continues to appear suspicious and he clearly is angry at and unwilling to cooperate with staff. He is particularly bumptious with individuals who he sees as not fully trained and fully qualified. -The plan remains transfer to the [facility] for long-term psychiatric care. Our hope remains that we will be able to divert the patient from the [facility], but the patient, as noted above, remains uncommunicative and resistant. Perhaps contributing to the patient's obvious anger and distress is the fact that he has learned this week that his residential program is unwilling to allow him to return and has stopped holding his bed for other individuals. 04/16 - Continue current treatment plan, which includes holiday from olanzapine as a rapport building attempt, and due to concerns that he is more irritable and resistant to treatment - which is obviously not beneficial for his overall condition. - Attempted to communicate with the patient today via written/printed text - will add addendum to this note if patient was willing to complete the sheet and respond to questions 04/21 -Patient remains uncooperative and unwilling to participate in interviews, but has been out of his room more and attending some groups. He remains unwilling to discuss treatment options, including antipsychotic medication. 04/22 - Patient remains unwilling for medications, but is interacting with peers appropriately and attending groups. Will try discontinuing private room and placing him with a roommate, is perhaps increased socialization will be therapeutic for him. 04/23 -no change, patient still unwilling for medications(other than marijuana and benzos) 04/24 -The patient remains angry, suspicious, and largely uncommunicative. He spoke briefly with the attending psychiatrist today in order to request privileges to go outdoors with staff, and was able to cooperate with a fresh air break, but subsequently was angry, bumptious, and willing to cooperate with assessments. 04/25 - Valium 5mg dose yesterday appeared to lead to some disinhibited verbally agitated behavior, with the Valium dose being discontinued following that one dose. Pt is fixated on Valium and on temazepam. refusal to take other medications with. Handling a roommate decently currently. Pt refusing to attend groups. Limited engagement with peers and staff occurring. no change to plan today 04/26 no change to plan today 04/27 -The patient cooperated with an interview today after several weeks of flatly refusing, sometimes rudely refusing to speak to providers. Today, the patient not voiced any delusional material and was able to specifically answer questions regarding perceptual disturbances. 04/28 -no change. 04/29 -start ziprasidone 20 mg twice daily with meals. Reviewed risks, benefits and common side effects including sedation and the need to take with food. 04/30 maintained ziprasidone at current dose today given pt's tendency to refuse medications mikey if notice any s/e, considering raising dose tomorrow 05/01 -Based on the patient's behavior today there seems to be no evidence that the patient is enjoying any particular benefit from ziprasidone. To the contrary, he may have become more bumptious and withdrawn. My recommendation is that we continue to observe him on ziprasidone 20 mg twice a day before increasing his dose further, possibly over the weekend. 05/02 -continue current medication and consider dose increase next week. It is likely that it will take weeks to show benefit from antipsychotic medication given the severity and chronicity of his symptoms, and his history of treatment resistance. He would be a good candidate for clozapine, but has never been willing to consider it. 05/03 -increase ziprasidone to 40 mg twice daily with food. Continue to encourage group attendance. 05/04 - Continue recently increased dose of ziprasidone 40mg BID with food 05/05 - Continue as above; limited change in presentation at this time 05/06 - Pt agreeable to titrating ziprasidone to 60mg BID, starting with this evening's dose. - Is superficially cooperative with conversation, but remains resistant to unit programming and more in-depth interactions with staff - Continues to be unable/unwilling to discuss status of delusional beliefs; however, appear to be ongoing as patient has reported that he is to be discharge, that there is a court order for him to leave, and that he has an apartment secured to move into - despite not having contact with individuals other than his correctional casework specialist 05/07 - Continue as above, limited change in presentation 05/08 - Continue as above, consider need for further titration of ziprasidone - Limited change in presentation, but has been superficially pleasant 05/09 - continue as above, considering potential to further titrate ziprasidone 60mg bid with meals, as pt was more willing to engage administrative underwriter even more then prior times (last seen by this administrative underwriter about 9 days ago) will maintain as is for now but considering raising to 80mg bid, 05/10 continue plan unchanged 05/11 - Continue ziprasidone at 60mg BID - unwilling to engage in discussion regarding further titration - Would suggest titration to 80mg BID, especially as he has verbalized ongoing delusional beliefs - Continue to engage patient in discussion regarding possible diversion plan; reach out to the county to discuss options and re-evaluate condition (2) Substance abuse: 02/25 - Pt has reported history of substance abuse, and recommendation has consistently been for avoidance of substances with significant abuse potential. - PDMP queried - most recent prescriptions below - lorazepam 0.5mg #60 tabs for 30 day supply - Dr. Alves - filled 02/12/2019 - alprazolam 0.5mg #90 tabs for 30 day supply - Dr. Lopez - filled 01/16/2019 - temazepam 30mg #30 caps for 30 day supply - Dr. Lopez - filled 01/16/2019 - Will continue lorazepam 0.5mg BID prn on admission, as only medication that is seemingly active - toxicology screen is negative for benzodiazepines, which questions if he has been taking the medication appropriately - Ideally will taper and discontinue the lorazepam, as recommendation remains that substances with abuse potential be avoided 02/26 -The patient's outpatient providers, during a meeting this morning, report that the patient tends to successfully convince physicians to prescribe benzodiazepines for him and that, in the past, he has abused him to the degree that he is practically obtunded. 02/27 -A repeat check of the PDMP reveals that the patient is consistently being prescribed lorazepam 0.5 mg twice daily (number 60/month) by a Dr. Brent Alves. He is also being prescribed alprazolam 0.[address] mg [address] Jeff Lopez, with the most recent previous prescription of alprazolam being on 01/16/[address] Lopez also prescribed temazepam 30 mg capsules #30 on 01/16/2019. According to his residential providers, no temazepam capsules were found among the patient's belongings. His most recent prescription for lorazepam 0.5 mg tablets was filled on 02/12/2019. 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 In the past, he reportedly has used clonazepam and temazepam. -I advised the patient that because of his history of misuse of benzodiazepines we would not be prescribing benzodiazepines during his hospital stay. An as needed order for lorazepam has not been used during hospital stay, and I discontinued the order today. 03/02 - Will need to coordinate care with his PCP and outpatient psychiatrist prior to discharge regarding the above. 03/04 - Charge nurse spoke with the above offices regarding concern for continued benzodiazepine prescriptions - Records will be faxed to their offices on discharge, as all benzodiazepines were discontinued during this hospitalization 03/06 -The patient did not request benzodiazepines and did not complain of anxiety today. I suggested to him that perhaps Abilify is also helping with anxiety in his case, and he responded by saying "perhaps." 03/09 -Today, the patient is insisting that what he needs is "benzodiazepines," and explains that the reason he "needs" benzodiazepines is that he has "benzodiazepine receptors," and that he is the only medications that work. He is unable to process warnings about the risks of benzodiazepines in the elderly, including increased risk of falls and mortality. Clearly, the patient is seeking benzodiazepines and has no insight into the associated risks. He also insists that he has never had trouble with benzodiazepines in the past, although there is well-documented of this. 03/10 -Today, the patient repeated his insistence that he needs benzodiazepines and that benzodiazepines are the only medications that work because he has "benzodiazepine receptors." After being told that everyone has central nervous system receptors to which benzodiazepines may attach, he replied, "That may be, but some of people need to have benzodiazepines forearm benzodiazepine receptors. 03/12 -Continues to request Benzodiazepines. 03/13 -Requests Valium for his "benzodiazepines receptors." 03/27 -Refuses to cooperate with assessment today, but has recently told staff that he needs "either Valium or Ativan." -The patient apparently has no working insight into his history of abuse of prescription medications (benzodiazepines). 04/15 -The patient has not reference to request for benzodiazepines recently. However, the context is that he has not communicated much of anything directly, a other than the occasional need for self-care items. 9/6 -Today, the patient repeats his request for benzodiazepines, and insists that he is "supposed" to be taking diazepam 10 mg 3 times a day and temazepam for sleep every night. 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 Unfortunately, the exact opposite seems to have occurred. Not only was the patient was uncooperative subsequent to a dose of Valium, he seems to have been disinhibited by it and shouting "get out" or "get away" several times when approached by staff 04/25 - pt focused on seeking temazepam, or Valium 04/27 -The patient does have a history of substance dependence. However, the current plan and expected disposition is for the patient to be transferred to an extended care inpatient psychiatric unit where abuse of prescribed medications is unlikely to occur. Today, the patient calmly requests temazepam and says that he has tried a number of different sleeping pills, but "that is the one that works." The patient is also able to clearly say that he understands that temazepam is physically habituating that there are associated risks associated with temazepam including, but not limited to, a risk of falls, accidents, confusion, and depression. He tells us that at prescribed dosages he has not had any of these problems in the past. -Today, I agreed to a trial of temazepam 15 mg at bedtime, a dose that the patient says has been effective in the past. 04/30 close monitoring of temazepam given above, so far not taken 05/01 -After persistently insisting that he had to have temazepam in order to sleep and that nursing staff reports that he is sleeping through the night are wrong because he tends to rest with his eyes closed, the patient has not ask for temazepam and has not been given temazepam since it was ordered a week ago. The patient declined to explain why he has not ask for it, and refuses to answer questions today as to whether he is sleeping well without. In fact, when asked to explain why he had not taken any after insisting on having a prescribed, he shouted "get the hell out!!." Perhaps the patient has forgotten that it was ord ered, but he seemed to remember the day after it was ordered and ask for not asked for it since. Our thought is that he may have somehow incorporated the order for temazepam into his delusional when belief system, based on his rage when asked to explain why he hasn't asked for it. (3) Hypertension: 02/25 - Continue home dose of clonidine 0.1mg qHS 03/01 Watch mildly elevated blood pressures as patient has been refusing clonidine 03/03 - BP normal past two days, and low today 03/10 -The patient's blood pressure today was 136/73. His pulse was 71 03/14 - elevated BP it is not urgent but will need monitored. 03/15 - BP WNL 03/26 - BP continues to be WNL 04/02 - BP remains within normal limits; continue daily vitals per standard admission order set - Will consider acute phase of this problem resolved at this time Risk Factors Assessment Male: Yes : Yes Do You Have Access To A Gun?: No Health Problems: Yes Mental Health Diagnoses: Yes Substance Use Disorders: Yes Protective Factors Assessment Hoahaoism Beliefs: No : No Responsible for Young Children: No Employed: No Stable Relationships: No Supportive Family: No Good Rapport with Provider: No Absence of Any Risk Factors Above: No Interval History Identifying Information SCOTT ROBERTO is a 73-year-old M who currently lives at a [facility] in [place], has a history of schizophrenia, and is known to our unit from several previous admissions, most recently in 09/2016. He was admitted on 02/24/19 16:40 on a 302 involuntary commitment for exacerbation of schizophrenia and heightened paranoia resulting in belief he needed to hide in a dumpster to seek refuge from impending bombings. He was found by [facility] staff and brought to the ED by police, and is on a 304 involuntary commitment as of 03/16/19. He has been referred to [facility] for fci treatment. Chief Complaint "No, can I skip it?" Review of Systems Notes Pt uncooperative with attempts to interview today, unable to obtain ROS Sleep Information Total Hours of Sleep: 7.75 Sleep Comments: pt on q-15 minute checks Meal Information Percent Meal Consumed - Breakfast: 90 Percent Meal Consumed - Lunch: 100 Percent Meal Consumed - Dinner: 100 Nutrition Comment: per meal record Subjective Subjective Patient was seen & assessed and interval progress reviewed with treatment team. Staff report the patient has demonstrated some improvements in his condition. He has been compliant with medications, and pleasant with superficial conv ersations. It was discussed that county should be contacted to determine if diversion planning should be discussed - as patient is showing mild improvements and there has been no bed date provided by [facility]. He is to have a meeting today with his correctional casework specialist. Meeting was reviewed with social insurance analyst prior to interaction. It was reported that the patient initially participated appropriately, but then began to verbalize beliefs that he has housing arranged and that his girlfriend, "Geetha", is living there already - he later contradicted this by stating she is in [place]. Pt reportedly shut down at some point in the meeting and was no longer willing to discuss goals of treatment or discharge planning with staff. He was reportedly agreeable to a [facility] referral, but then was unwilling to sign an JEFFREY. Pt was seen today to discuss progress since admission. He was found to be in his room, entering the hallway to begin walking laps. This provider requested an interview, and offered an office space as patient's roommate was present in the room. Pt did not respond, but walked in the direction of the office. Pt was asked how his weekend went, and he did not answer, looking down at his feet. This provider asked if the patient was not going to talk, and he states, "no, can I skip it?" This provider highly encouraged the patient to meet to discuss his treatment donovan ns. He then began walking in the opposite direction, away from this provider. Physical Exam Psychiatric Orientation: alert; + uncooperative (unwilling to engage in interview) Apperance: appropriately dressed, appropriately groomed and appeared stated age Eye Contact: + poor eye contact (avoiding direct eye contact, looking down at ground) Motor Behavior: steady gait and station and no abnormal motor movements Speech: normal rate/rhythm/volume of speech (irritable tone, only one brief verbalization in order to refuse interview) Affect: + blunted affect and + irritable affect Unwilling to discuss current mood Unable to adequate assess, as patient refused interview Unable to adequate assess, as patient refused interview Insight: + impaired insight Judgement: + impaired judgement Vital Signs (Past 24 Hours) Last Vital Signs Temp 36.7 C 05/11/19 06:51 Pulse 60 05/11/19 06:52 Resp 18 05/11/19 06:51 BP 107/65 05/11/19 06:52 Pulse Ox 96 02/24/19 08:10 Results & Data Current Inpatient Medications Current Inpatient Medications: Current Inpatient Medications Acetaminophen (Tylenol) 650 mg PO Q4H PRN PRN Reason: Headache or Minor Fever Stop: 05/23/19 08:14 Al Hydrox/Mg Hydrox/Simethicone (Maalox) 30 ml PO Q4H PRN PRN Reason: GI Upset Stop: 05/23/19 08:14 Benztropine Mesylate (Cogentin) 0.5 mg PO BID PRN PRN Reason: dystonia Stop: 05/23/19 08:14 Bismuth Subsalicylate (Kaopectate) 15 ml PO PRN PRN PRN Reason: Loose Stool Stop: 05/23/19 08:14 Clonidine HCl (Catapres) 0.1 mg PO HS [facility] Stop: 05/23/19 21:59 Last Admin: 05/10/19 21:08 Dose: 0.1 mg Documented by: Cyanocobalamin (Vitamin B-12) 500 mcg PO DAILY MAG Stop: 05/23/19 08:59 Last Admin: 05/11/19 08:38 Dose: 500 mcg Documented by: Hydroxyzine HCl (Vistaril) 25 mg PO Q4H PRN PRN Reason: Anxiety Stop: 05/23/19 08:14 Hydroxyzine HCl (Vistaril) 50 mg PO HSZ PRN PRN Reason: Insomnia Stop: 05/23/19 08:14 Magnesium Hydroxide (Milk Of Magnesia) 30 ml PO DAILY PRN PRN Reason: Heartburn Stop: 05/23/19 08:19 Magnesium Oxide (Mag-Ox) 400 mg PO DAILY MAG Stop: 05/23/19 08:59 Last Admin: 05/11/19 08:38 Dose: 400 mg Documented by: Miscellaneous (Remove Nicoderm Patch) 1 ea N/A HS MAG Stop: 05/23/19 21:59 Last Admin: 05/10/19 21:09 Dose: Not Given Documented by: Multivitamins (Multivitamin Tab) 1 tab PO DAILY MAG Stop: 05/23/19 08:59 Last Admin: 05/11/19 08:38 Dose: 1 tab Documented by: Nicotine (Nicoderm Cq) 14 mg TD QAM MAG Stop: 05/23/19 08:59 Last Admin: 05/11/19 08:38 Dose: Not Given Documented by: Olanzapine (Zyprexa) 10 mg IM HS PRN PRN Reason: Undecided Stop: 05/23/19 08:19 Pyridoxine HCl (Vitamin B-6) 100 mg PO DAILY MAG Stop: 05/23/19 08:59 Last Admin: 05/11/19 08:38 Dose: 100 mg Documented by: Sodium Chloride ([place] Nasal) 1 - 2 sprays NA PRN PRN PRN Reason: Nasal Dryness/Congestion Stop: 05/23/19 08:19 Ziprasidone (Geodon) 60 mg PO BIDM MAG Stop: 06/05/19 17:44 Last Admin: 05/11/19 08:38 Dose: 60 mg Documented by: Mental Health & Subst Abuse Tx Therapist Name of Therapist: Denies [facility] Machine Feeder Name of Shearing Machine Feeder: Shruti Lopez Phone Number for Shearing Machine Feeder: Case Management Appointment Comment: [phone], [place] [address] Post Discharge Appointments Primary Care Physician Name Of Family Doctor: Dr. Lopez Contact Information Discharge Discharge Address: [address] [place] [address], [place] [address] CPT Code CPT Code 70639 (1) Schizophrenia Schizophrenia type: paranoid schizophrenia Qualified Code(s): F20.0 - Pa ranoid schizophrenia (2) Hypertension Hypertension type: essential hypertension Qualified Code(s): I10 - Essential (primary) hypertension
[2019-05-11] MEDS: cloNIDine HCL 0.1 MG TAB PO SCH (21:13)
[2019-05-12] MEDS: MAGNESIUM OXIDE 400 MG TAB PO SCH (08:16)
[2019-05-12] MEDS: ZIPRASIDONE HCL 20 MG CAP PO SCH ×2 (08:16→17:26)
[2019-05-12] MEDS: MULTIVITAMIN TAB PO SCH (08:16)
[2019-05-12] MEDS: PYRIDOXINE HCL 50 MG TAB PO SCH (08:17)
[2019-05-12] MEDS: NICOTINE 14 MG/24 HR PATCH TD SCH (08:17)
[2019-05-12] MEDS: CYANOCOBALAMIN 500 MCG TABLET (VITAMIN B-12) PO SCH (08:17)
--- NOTE | 2019-05-12 09:45 | Psychiatric Progress Note ---
Date of Service May 12, 2019 Impression / Recommendations Impression Patient remains poorly engaged in treatment, refusing most groups. He has been showing some mild improvement in his condition, and is at least superficially pleasant with interactions with staff. Pt was improving to the point of his private room being discontinued, which he has tolerated thus far. Pt has been accepted at the [facility] since 04/02/2019, we still do not have a bed date. Discussed that the county will likely be contacted to discuss if a diversion plan should be considered. He does intermittently verbalize ongoing delusional beliefs, but these have been ongoing for a long time. Pt has been compliant with trial of ziprasidone, titrated to 60mg BID. Would consider further titration to 80mg BID; however, patient unwilling to engage in conversation long enough to discuss these recommendations. Given the chronicity and severity of his condition, it may take weeks to see benefit from medication. The current plan is for the patient to be transferred for long-term psychiatric hos pitalization, given his inability to cooperate with treatment, given his inability to attend his own physical needs without the availability of the full spectrum of psychiatric services at the inpatient level of care, and ongoing psychosis with auditory hallucinations and paranoia. Will continue to explore if there is a possibility for a diversion plan, given some improvements seen during his admission. (1) Schizophrenia: 02/25 - Continue home medication regimen - as refusing offerings of his antipsychotic, will likely require olanzapine IM (or alternative agent) over objection, given clear evidence of paranoia and delusional thought process - previously stabilized on this medication - Pt agreeable to taking all other medications, with exception of antipsychotic as mentioned above - Admitted to a locked inpatient behavioral health unit, on q15 minute safety checks - Encourage medication initiation/adjustments as indicated - Encourage participation in group and recreational therapies - Gather collateral information from outpatient providers and [facility] staff - Suggest family meeting to involve outpatient supports in safety planning - Reschedule appropriate aftercare appointments 02/26 -Patient indicates willingness to sign a release for the CRR [facility], will get collateral from their staff. -File for 303 involuntary commitment to be held tomorrow. -Recommend medications over objection, with an IM Zyprexa backup for refusal of oral medication. Involve outpatient treatment team to discuss ways to improve stability and compliance; consider long-acting injectable antipsychotic. -Order fasting labs for monitoring on an atypical antipsychotic once patient is more cooperative. 02/27 -The patient was retrained at his involuntary commitment hearing (303) this morning. -He has continuously and consistently refused psychiatric medications to date. However, today, when I explained that that a option that might become necessary in his case is medication over objection, and an intramuscular form, the patient said that he understood and that he would try medications that I prescribe. His initial preference would be olanzapine, but because olanzapine is not available in a long acting depot form, we would first like to try aripiprazole. He indicates that he is taken aripiprazole in the past and has been able to tolerate it, although he does not believe that it has been particularly helpful. -A trial dose of aripiprazole 15 mg by mouth, as a one-time dose, has been ordered and he assessed for efficacy. 02/28 -Appears to be tolerating initiation of Abilify so far. Remains delusional, paranoid. May consider further titration tomorrow -Aricept discontinued at patient's request on 02/27/2019. The medication has not been demonstrated to be efficacious for cognitive impairment associated with long-standing schizophrenia however we should be vigilant for slowing of mentation following discontinuation. 03/01 Patient fixated and irrational regarding access to clothing item as above today. Hospital environment becoming incorporated and delusions. Consider possibility that the aripiprazole is contributing to activation. We will increase to 20 mg tomorrow and also start Risperdal 1 mg p.o. twice daily as as needed. 03/02 - Continue with aripiprazole at 20mg daily, consider need for further t itration - if tolerating and effective, eventual plan will be for conversion to Abilify Maintena - Pt has not yet utilized risperidone 03/03 - Increase aripiprazole to 25mg (equivalent to 30mg pill) and change to liquid formulation to decrease risk of cheeking/nonadherence, as patient does not believe he needs medication and had been noncompliant prior to hospitalization. - Fasting glucose and lipid profile ordered for tomorrow for monitoring on an atypical antipsychotic. - Private room due to psychosis, agitation, and inappropriate disrobing/sexual behavior. - Meeting with BCM and CRR staff when patient able to tolerate. 03/04 - Continue aripiprazole 25mg liquid (30mg pill equivalent) and continue to observe for improvement in thought process/content - consider conversion to Maintena if effective, versus trial of another agent if improvement remains limited - Fasting labs reviewed - all values WNL - Continue medically necessary private room - Request meeting with CRR staff, in order to obtain details about patient's proximity to baseline 03/05 -Patient refusing liquid aripiprazole, but agrees to take the pill: Ordered 30 mg daily. -Schedule meeting with his director case management, CRR and psych rehab staff. Consider involuntary outpatient commitment at the time of discharge. 03/06 -The patient has improved in that he is more reality based at this point. He continues to harbor fixed, systematized delusions, but is generally able to focus on reality based topics. -Although the patient tells me that he does not feel that aripiprazole has been effective, he is able to accept my opinion in the opinion of the staff that he has improved in response to aripiprazole. -The patient's main objection to aripiprazole oral solution is that he does not like the way it tastes, and within this context, he tells us that he is willing to accept Abilify Maintenaand requests that it be injected into his buttock. Abilify Maintena 300 mg IM ordered, and oral Abilify discontinued. We will resume oral Abilify if the patient subsequently changes his mind and refuses the injection. 03/07 resuming Abilify oral given his refusal of FARAH form of Abilify 03/08 is taking Abilify po form but refusing Abilify Maintena form. advise close monitoring for potential of checking given pt's tendency to not want to take medications. 03/09 -The patient is flatly refusing to take aripiprazole in the form of Abilify Maintena. He is also been hesitant to take oral Abilify, but has been doing so. -The patient's lack of cooperation is thought possibly to be related to an un-expressed desire to not be discharged back to the community. He told me today that he left his meeting with his community providers after a few seconds because "just the side of them made me extremely anxious. My pulse elevated to 140." Later, he told me that he was still anxious about it and his pulse was "still around 130." The patient allowed me to take his pulse, and it was approximately 76. At that point he said, "did I say pulse? I meant systolic blood pressure." And when I pointed out that his systolic blood pressure of 130 is not considered to be a particular concern, he said "I mean diastolic." -Our hope had been that the patient would agree to accept a Depo form of medication. He was refusing Haldol Decanoate because of various side effects. Risperidone constant was ruled out as a first-line Depo medication because of the frequency of administration (the patient tends to get into power struggles over medications) and because he says that he is sensitive to "big needles." Invega would be an option, but currently the patient is being so uncooperative that our concern would be that he would cheek the oral tablets that we would have to give him first. Accordingly, the new strategy will be to discontinue Abilify, and resume olanzapine with olanzapine IM over objection if necessary. We will begin the olanzapine Zydis 20 mg at bedtime 03/10 -The patient took the prescribed dose of olanzapine Zydis 20 mg at bedtime last night. Today, he tells me that it "did not help at all." However, staff report that he has been somewhat more agreeable, more pleasant, and less para noid today. -As he has with other providers, today he told me that I should have given him olanzapine 5 mg "to start", and I explained that he was already on olanzapine 20 mg when he came into the hospital and we know that he is able to tolerate that dose. He tells me that he did, in fact tolerate the dose and is not aware of any side effects, but, somewhat illogically, insisted that the dose was "too high for a starting dose." 03/11 - Continue current medication regimen at this time - olanzapine 20mg daily - Encourage participation in the milieu and in group programming as tolerated 03/12 -Continue current medication regimen. The patient's condition has not yet improved. -The patient does participate in select groups, but often tends to be disruptive. 03/13 -Today, the patient seems to be somewhat more cooperative and less frankly delusional. It was possible to engage in a mostly reality based conversation for 5 or 10 minutes at a time. Also, although he was unhappy with me when I refused to provide him with a dose of Valium for anxiety, he was able to remain pleasant and calm at this time, did not storm from the room." 03/14 and 03/15 -no change in medication will work on therapeutic alliance given patient is not participating 03/16 -304 involuntary commitment granted. -Patient remains completely uncooperative with treatment, refused his Zyprexa Zydis last evening, but then ultimately took it before he received the injection. I have a high suspicion for cheeking of antipsychotic medication, and we will continue to be vigilant with mouth checks, and work towards a long- acting injectable. 03/17 -Patient has been on Zyprexa 20 mg at bedtime for 1 week, with limited response. He is refusing to discuss other medication options. Per records, he has been prescribed up to 30 mg olanzapine in the past, so will increase his dose to this previously tolerated dose, as it is 1 of the few medications he has been willing to take. Continue IM backup for refusal, and Zyprexa Zydis formulation to decrease risk of cheeking. He is not compliant with mouth checks, but have asked staff to try to observe him for 10 minutes after taking the Zydis to ensure he is not spitting it out before it dissolves. 03/18 -Continue Zyprexa Zydis 30 mg at bedtime with IM backup. Consider switch to a different medication (?oral paliperidone with IM backup) if irritability and agitation continues. He has tried virtually every atypical antipsychotic and reports none of them were effective (although some trials were short due to nonadherence) and has a history of dystonia on haloperidol. Clozapine would be a reasonable choice, but he has been unwilling to even discuss medication options. -Consider some component of cognitive decline which could be contributing to his worsening presentation and will need to be monitored and worked up further once he is more psychiatrically stable. -Refer to [facility] in the event that he does not improve and long-term inpatient treatment is needed. 03/19 - Proceed with [facility] referral. 03/20 - Continue current medication regimen; patient refused EKG and CXR yesterday - refused again today - Continue attempts to gather information to make a referral to [facility] 03/23 - Proceed with [facility] referral - patient has refused EKG and CXR for multiple attempts. We will send most recent tests available - Continue current medication regimen at this time 03/24 -Attempted to hold diversion meeting with his outpatient BCM, [facility] director, and the formerly [facility] MH/ID; patient refused to attend or participate in the meeting. 03/25 - 03/26 - Continue treatment plan as above - no change in patient's condition and he remains unwilling to participate meaningfully in treatment - Continue with [facility] referral 03/27 -The patient has been informed that the plan at this point is to transfer him to [facility] for long-term inpatient psychiatric treatment, given his refusal to adhere with treatment and his associated behaviors in the community when not adherent with psychiatric treatment. -The patient continues to refuse mouth checks after given dosages of Zyprexa Zydis, and there is some question regarding whether he is actually ingesting this medication. He also would not cooperate with laboratory testing. -There has been a question regarding the patient's cognitive functions, and prior to admission he had been taking Aricept. When he does cooperate with this, I have not seen evidence of any substantial cognitive impairment. He may have mild cognitive impairment, but does not fully cooperate with formal cognitive assessment. He easily recalls the names of his providers, the names of the medications he is taking, the names of the various infectious agents that he believes are causing some of his psychiatric symptoms, the names of certain chemicals that he believes will rid him of the reference to infections, and is able to discuss current events such as recent news items. His assertion that he wants to return to his apartment in the community seems belied by his steadfast refusal to cooperate with those interventions I would make it possible for him to return, and there is some suspicion that although the patient remains floridly psychotic he may also be intentionally sabotaging discharge. 03/28 - 03/30 -There is been no currency exchange specialist the past 2 weeks, and long-term inpatient treatment at the [facility] is indicated. 03/31 - Continue current medication regimen - Pt briefly verbalized willingness for FARAH, but was not agreeable to medication adjustments to allow for this to be possible - If he should change his mind; recommendation is for trial of Invega orally to establish tolerability, then consideration for Invega Sustenna - unwilling for this today 04/01 - 04/03 - Continue current medication regimen - Continues to refuse FARAH, will continue discussion daily as this is the reported preference of his CRR 04/04 -Questionable positive PPD measuring 13 mm but history of confinement places him at higher risk. Patient refused chest x-ray today but we will reapproach. No active symptoms of infection. Order for sputum culture and smear today for confirmation. 04/05 -PPD now appears negative. Would suggest follow through with sputum smear and culture for confirmation as previously ordered -Continue treatment plan as above 04/06 - PPD reportedly negative, patient unable to follow-up with sputum smear - therefore discontinued - Continue medication regimen as above - unwilling to discuss conversion to an FARAH - Meeting today with representation from [facility] to discuss discharge planning 04/07 - Continue medication regimen as above - remains unwilling to discuss changes - Additional meeting with CRR and CM scheduled for next week - We have been regularly assessing patient's condition and appropriateness to go outside since his 30-day treatment plan review. As patient continues to be unwilling to participate in a meaningful conversation with providers regarding his condition, we continue to be unable to determine if he is appropriate to be taken off the unit - therefore will await ability to discuss the topic in a meaningful way prior to making this determination. Will continue regular evaluation. 04/08 - 04/12 - Continue current medication regimen, as patient unwilling to discuss changes - Attempted again to determine if appropriate to go outside, patient unwilling to participate in conversation despite being told the goal of allowing him to go outside - Meeting with CM and CRR director scheduled for 04/13 at 1030 04/13 - Continue Zyprexa 30mg daily - unwilling to engage in conversation to discuss changes - Remains unwilling to engage in conversation to determine if he is appropriate to go outside, he has been made aware this is a possibility for him - Meeting for attempted diversion resulted in decision to no longer hold patient's CRR bed, [facility] admission is supported based on little to no improvement since admission and limited willingness to engage in conversations regarding medication adjustments - We have been asked to attempt to get a QuantiFERON-TB Gold Plus test, despite negative PPD reading within acceptable timeframe - pt unwilling to engage in conversation to obtain consent, further indicating why long-term inpatient psychiatric hospitalization is necessary. Will continue to attempt to gain consent for this testing to be completed 04/15 -The patient is slightly more communicative today and that he does answer at least one question which was whether he would be in agreement if we offered him a drug holiday from olanzapine. His response was in the affirmative.. He also said "thank you." -The patient continues to appear suspicious and he clearly is angry at and unwilling to cooperate with staff. He is particularly bumptious with individuals who he sees as not fully trained and fully qualified. -The plan remains transfer to the [facility] for long-term psychiatric care. Our hope remains that we will be able to divert the patient from the [facility] hospital, but the patient, as noted above, remains uncommunicative and resistant. Perhaps contributing to the patient's obvious anger and distress is the fact that he has learned this week that his residential program is unwilling to allow him to return and has stopped holding his bed for other individuals. 04/16 - Continue current treatment plan, which includes holiday from olanzapine as a rapport building attempt, and due to concerns that he is more irritable and resistant to treatment - which is obviously not beneficial for his overall condition. - Attempted to communicate with the patient today via written/printed text - will add addendum to this note if patient was willing to complete the sheet and respond to questions 04/21 -Patient remains uncooperative and unwilling to participate in interviews, but has been out of his room more and attending some groups. He remains unwi lling to discuss treatment options, including antipsychotic medication. 04/22 - Patient remains unwilling for medications, but is interacting with peers appropriately and attending groups. Will try discontinuing private room and placing him with a roommate, is perhaps increased socialization will be therapeutic for him. 04/23 -no change, patient still unwilling for medications(other than marijuana and benzos) 04/24 -The patient remains angry, suspicious, and largely uncommunicative. He spoke briefly with the attending psychiatrist today in order to request privileges to go outdoors with staff, and was able to cooperate with a fresh air break, but subsequently was angry, bumptious, and willing to cooperate with assessments. 04/25 - Valium 5mg dose yesterday appeared to lead to some disinhibited verbally agitated behavior, with the Valium dose being discontinued following that one dose. Pt is fixated on Valium and on temazepam. refusal to take other medications with. Handling a roommate decently currently. Pt refusing to attend groups. Limited engagement with peers and staff occurring. no change to plan today 04/26 no change to plan today 04/27 -The patient cooperated with an interview today after several weeks of flatly refusing, sometimes rudely refusing to speak to providers. Today, the patient not voiced any delusional material and was able to specifically answer questions regarding perceptual disturbances. 04/28 -no change. 04/29 -start ziprasidone 20 mg twice daily with meals. Reviewed risks, benefits and common side effects including sedation and the need to take with food. 04/30 maintained ziprasidone at current dose today given pt's tendency to refuse medications mikey if notice any s/e, considering raising dose tomorrow 05/01 -Based on the patient's behavior today there seems to be no evidence that the patient is enjoying any particular benefit from ziprasidone. To the contrary, he may have become more bumptious and withdrawn. My recommendation is that we continue to observe him on ziprasidone 20 mg twice a day before increasing his dose further, possibly over the weekend. 05/02 -continue current medication and consider dose increase next week. It is l ikely that it will take weeks to show benefit from antipsychotic medication given the severity and chronicity of his symptoms, and his history of treatment resistance. He would be a good candidate for clozapine, but has never been willing to consider it. 05/03 -increase ziprasidone to 40 mg twice daily with food. Continue to encourage group attendance. 05/04 - Continue recently increased dose of ziprasidone 40mg BID with food 05/05 - Continue as above; limited change in presentation at this time 05/06 - Pt agreeable to titrating ziprasidone to 60mg BID, starting with this evening's dose. - Is superficially cooperative with conversation, but remains resistant to unit programming and more in-depth interactions with staff - Continues to be unable/unwilling to discuss status of delusional beliefs; however, appear to be ongoing as patient has reported that he is to be discharge, that there is a court order for him to leave, and that he has an apartment secured to move into - despite not having contact with individuals other than his director case management 05/07 - Continue as above, limited change in presentation 05/08 - Continue as above, consider need for further titration of ziprasidone - Limited change in presentation, but has been superficially pleasant 05/09 - continue as above, considering potential to further titrate ziprasidone 60mg bid with meals, as pt was more willing to engage expert medical writer even more then prior times (last seen by this expert medical writer about 9 days ago) will maintain as is for now but considering raising to 80mg bid, 05/10 continue plan unchanged 05/11 - Continue ziprasidone at 60mg BID - unwilling to engage in discussion regarding further titration - Would suggest titration to 80mg BID, especially as he has verbalized ongoing delusional beliefs - Continue to engage patient in discussion regarding possible diversion plan; reach out to the county to discuss options and re-evaluate condition 05/12 - Continue as above, patient again unwilling to engage in conversation long enough to discuss medication titration - Consider titration to 80mg BID when able to discuss further, ongoing reported delusions that he is "not sick" and "does not have schizophrenia" (2) Substance abuse: 02/25 - Pt has reported history of substance abuse, and recommendation has consistently been for avoidance of substances with significant abuse potential. - PDMP queried - most recent prescriptions below - lorazepam 0.5mg #60 tabs for 30 day supply - Dr. Alves - filled 02/12/2019 - alprazolam 0.5mg #90 tabs for 30 day supply - Dr. Lopez - filled 01/16/2019 - temazepam 30mg #30 caps for 30 day supply - Dr. Lopez - filled 01/16/2019 - Will continue lorazepam 0.5mg BID prn on admission, as only medication that is seemingly active - toxicology screen is negative for benzodiazepines, which questions if he has been taking the medication appropriately - Ideally will taper and discontinue the lorazepam, as recommendation remains that substances with abuse potential be avoided 02/26 -The patient's outpatient providers, during a meeting this morning, report that the patient tends to successfully convince physicians to prescribe benzodiazepines for him and that, in the past, he has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
[2019-05-12] MEDS: cloNIDine HCL 0.1 MG TAB PO SCH (21:07)
[2019-05-13] MEDS: ZIPRASIDONE HCL 20 MG CAP PO SCH ×2 (08:41→18:45)
[2019-05-13] MEDS: MAGNESIUM OXIDE 400 MG TAB PO SCH (08:41)
[2019-05-13] MEDS: CYANOCOBALAMIN 500 MCG TABLET (VITAMIN B-12) PO SCH (08:42)
[2019-05-13] MEDS: MULTIVITAMIN TAB PO SCH (08:42)
[2019-05-13] MEDS: PYRIDOXINE HCL 50 MG TAB PO SCH (08:42)
[2019-05-13] MEDS: NICOTINE 14 MG/24 HR PATCH TD SCH (08:44)
--- NOTE | 2019-05-13 12:00 | Psychiatric Progress Note ---
Date of Service May 13, 2019 Impression / Recommendations Impression Patient remains poorly engaged in treatment, refusing most groups. He has been showing some mild improvement in his condition, and is at least superficially pleasant with interactions with staff. Pt was improving to the point of his private room being discontinued, which he has tolerated thus far. [facility], we still do not have a bed date. County will likely be contacted to discuss if a diversion plan should be considered. He does intermittently verbalize ongoing delusional beliefs, but these have been ongoing for a long time. Pt has been compliant with trial of ziprasidone, titrated to 60mg BID. Would consider if further titration to 80mg BID is necessary; however, condition is showing stable improvement and patient's willingness for only brief conversations has not allowed for this discussion. Given the chronicity and severity of his condition, it may take weeks to see benefit from medication. The current plan is for the patient to be transferred for long-term psychiatric hospitalization, given his inability to cooperate with treatment, given his inability to attend his own physical needs without the availability of the full spectrum of psychiatric services at the inpatient level of care, and ongoing psychosis with auditory hallucinations and paranoia. Will continue to explore if there is a possibility for a diversion plan, given some improvements seen during his admission. (1) Schizophrenia: 02/25 - Continue home medication regimen - as refusing offerings of his antipsychotic, will likely require olanzapine IM (or alternative agent) over objection, given clear evidence of paranoia and delusional thought process - previously stabilized on this medication - Pt agreeable to taking all other medications, with exception of antipsychotic as mentioned above - Admitted to a locked inpatient behavioral health unit, on q15 minute safety checks - Encourage medication initiation/adjustments as indicated - Encourage participation in group and recreational therapies - Gather collateral information from outpatient providers and central hospital staff - Suggest family meeting to involve outpatient supports in safety planning - Reschedule appropriate aftercare appointments 02/26 -Patient indicates willingness to sign a release for the [facility], will get collateral from their staff. -File for 303 involuntary commitment to be held tomorrow. -Recommend medications over objection, with an IM Zyprexa backup for refusal of oral medication. Involve outpatient treatment team to discuss ways to improve stability and compliance; consider long-acting injectable antipsychotic. -Order fasting labs for monitoring on an atypical antipsychotic once patient is more cooperative. 02/27 -The patient was retrained at his involuntary commitment hearing (303) this morning. -He has continuously and consistently refused psychiatric medications to date. However, today, when I explained that that a option that might become necessary in his case is medication over objection, and an intramuscular form, the patient said that he understood and that he would try medications that I p rescribe. His initial preference would be olanzapine, but because olanzapine is not available in a long acting depot form, we would first like to try aripiprazole. He indicates that he is taken aripiprazole in the past and has been able to tolerate it, although he does not believe that it has been particularly helpful. -A trial dose of aripiprazole 15 mg by mouth, as a one-time dose, has been o rdered and he assessed for efficacy. 02/28 -Appears to be tolerating initiation of Abilify so far. Remains delusional, paranoid. May consider further titration tomorrow -Aricept discontinued at patient's request on 02/27/2019. The medication has not been demonstrated to be efficacious for cognitive impairment associated with long-standing schizophrenia however we should be vigilant for slowing of mentation following discontinuation. 03/01 Patient fixated and irrational regarding access to clothing item as above today. Hospital environment becoming incorporated and delusions. Consider p ossibility that the aripiprazole is contributing to activation. We will increase to 20 mg tomorrow and also start Risperdal 1 mg p.o. twice daily as as needed. 03/02 - Continue with aripiprazole at 20mg daily, consider need for further titration - if tolerating and effective, eventual plan will be for conversion to Abilify Maintena - Pt has not yet utilized risperidone 03/03 - Increase aripiprazole to 25mg (equivalent to 30mg pill) and change to liquid formulation to decrease risk of cheeking/nonadherence, as patient does not believe he needs medication and had been noncompliant prior to ho spitalization. - Fasting glucose and lipid profile ordered for tomorrow for monitoring on an atypical antipsychotic. - Private room due to psychosis, agitation, and inappropriate disrobing/sexual behavior. - Meeting with [facility] and [facility] staff when patient able to tolerate. 03/04 - Continue aripiprazole 25mg liquid (30mg pill equivalent) and continue to observe for improvement in thought process/content - consider conversion to Maintena if effective, versus trial of another agent if improvement remains limited - Fasting labs reviewed - all values WNL - Continue medically necessary private room - Request meeting with [facility] staff, in order to obtain details about patient's proximity to baseline 03/05 -Patient refusing liquid aripiprazole, but agrees to take the pill: Ordered 30 mg daily. -Schedule meeting with his manager of case, CRR and psych rehab staff. Consider involuntary outpatient commitment at the time of discharge. 03/06 -The patient has improved in that he is more reality based at this point. He continues to harbor fixed, systematized delusions, but is generally able to focus on reality based topics. -Although the patient tells me that he does not feel that aripiprazole has been effective, he is able to accept my opinion in the opinion of the staff that he has improved in response to aripiprazole. -The patient's main objection to aripiprazole oral solution is that he does not like the way it tastes, and within this context, he tells us that he is willing to accept Abilify Maintenaand requests that it be injected into his buttock. Abilify Maintena 300 mg IM ordered, and oral Abilify discontinued. We will resume oral Abilify if the patient subsequently changes his mind and refuses the injection. 03/07 resuming Abilify oral given his refusal of FARAH form of Abilify 03/08 is taking Abilify po form but refusing Abilify Maintena form. advise close monitoring for potential of checking given pt's tendency to not want to take medications. 03/09 -The patient is flatly refusing to take aripiprazole in the form of Abilify Maintena. He is also been hesitant to take oral Abilify, but has been doing so. -The patient's lack of cooperation is thought possibly to be related to an un-expressed desire to not be discharged back to the community. He told me today that he left his meeting with his community providers after a few seconds because "just the side of them made me extremely anxious. My pulse elevated to 140." Later, he told me that he was still anxious about it and his pulse was "still around 130." The patient allowed me to take his pulse, and it was approximately 76. At that point he said, "did I say pulse? I meant systolic blood pressure." And when I pointed out that his systolic blood pressure of 130 is not considered to be a particular concern, he said "I mean diastolic." -Our hope had been that the patient would agree to accept a Depo form of medication. He was refusing Haldol Decanoate because of various side effects. Risperidone constant was ruled out as a first-line Depo medication because of the frequency of administration (the patient tends to get into power struggles over medications) and because he says that he is sensitive to "big needles." Invega would be an option, but currently the patient is being so uncooperative that our concern would be that he would cheek the oral tablets that we would have to give him first. Accordingly, the new strategy will be to discontinue Abilify, and resume olanzapine with olanzapine IM over objection if necessary. We will begin the olanzapine Zydis 20 mg at bedtime 03/10 -The patient took the prescribed dose of olanzapine Zydis 20 mg at bedtime last night. Today, he tells me that it "did not help at all." However, staff report that he has been somewhat more agreeable, more pleasant, and less paranoid today. -As he has with other providers, today he told me that I should have given him olanzapine 5 mg "to start", and I explained that he was already on ol anzapine 20 mg when he came into the hospital and we know that he is able to tolerate that dose. He tells me that he did, in fact tolerate the dose and is not aware of any side effects, but, somewhat illogically, insisted that the dose was "too high for a starting dose." 03/11 - Continue current medication regimen at this time - olanzapine 20mg daily - Encourage participation in the milieu and in group programming as tolerated 03/12 -Continue current medication regimen. The patient's condition has not yet improved. -The patient does participate in select groups, but often tends to be dis ruptive. 03/13 -Today, the patient seems to be somewhat more cooperative and less frankly delusional. It was possible to engage in a mostly reality based conversation for 5 or 10 minutes at a time. Also, although he was unhappy with me when I refused to provide him with a dose of Valium for anxiety, he was able to remain pleasant and calm at this time, did not storm from the room." 03/14 and 03/15 -no change in medication will work on therapeutic alliance given patient is not participating 03/16 -304 involuntary commitment granted. -Patient remains completely uncooperative with treatment, refused his Zyprexa Zydis last evening, but then ultimately took it before he received the injection. I have a high suspicion for cheeking of antipsychotic medication, and we will continue to be vigilant with mouth checks, and work towards a long- acting injectable. 03/17 -Patient has been on Zyprexa 20 mg at bedtime for 1 week, with limited response. He is refusing to discuss other medication options. Per records, he has been prescribed up to 30 mg olanzapine in the past, so will increase his dose to this previously tolerated dose, as it is 1 of the few medications he has been willing to take. Continue IM backup for refusal, and Zyprexa Zydis formulation to decrease risk of cheeking. He is not compliant with mouth checks, but have asked staff to try to observe him for 10 minutes after taking the Zydis to ensure he is not spitting it out before it dissolves. 03/18 -Continue Zyprexa Zydis 30 mg at bedtime with IM backup. Consider switch to a different medication (?oral paliperidone with IM backup) if irritability and agitation continues. He has tried virtually every atypical antipsychotic and reports none of them were effective (although some trials were short due to nonadherence) and has a history of dystonia on haloperidol. Clozapine would be a reasonable choice, but he has been unwilling to even discuss medication options. -Consider some component of cognitive decline which could be contributing to his worsening presentation and will need to be monitored and worked up further once he is more psychiatrically stable. -Refer to [facility] in the event that he does not improve and long-term inpatient treatment is needed. 03/19 - Proceed with [facility] referral. 03/20 - Continue current medication regimen; patient refused EKG and CXR yesterday - refused again today - Continue attempts to gather information to make a referral to [facility] 03/23 - Proceed with [facility] referral - patient has refused EKG and CXR for multiple attempts. We will send most recent tests available - Continue current medication regimen at this time 03/24 -Attempted to hold diversion meeting with his outpatient [facility], central hospital director, and the [facility]; patient refused to attend or participate in the meeting. 03/25 - 03/26 - Continue treatment plan as above - no change in patient's condition and he remains unwilling to participate meaningfully in treatment - Continue with [facility] referral 03/27 -The patient has been informed that the plan at this point is to transfer him to [facility] for long-term inpatient psychiatric treatment, given his refusal to adhere with treatment and his associated behaviors in the community when not adherent with psychiatric treatment. -The patient continues to refuse mouth checks after given dosages of Zyprexa Zydis, and there is some question regarding whether he is actually ingesting this medication. He also would not cooperate with laboratory testing. -There has been a question regarding the patient's cognitive functions, and prior to admission he had been taking Aricept. When he does cooperate with this, I have not seen evidence of any substantial cognitive impairment. He may have mild cognitive impairment, but does not fully cooperate with formal cognitive assessment. He easily recalls the names of his providers, the names of the medications he is taking, the names of the various infectious agents that he believes are causing some of his psychiatric symptoms, the names of certain chemicals that he believes will rid him of the reference to infections, and is able to discuss current events such as recent news items. His assertion that he wants to return to his apartment in the community seems belied by his steadfast refusal to cooperate with those interventions I would make it possible for him to return, and there is some suspicion that although the patient remains floridly psychotic he may also be intentionally sabotaging discharge. 03/28 - 03/30 -There is been no ion exchange operator the past 2 weeks, and long-term inpatient treatment at the [facility] is indicated. 03/31 - Continue current medication regimen - Pt briefly verbalized willingness for FARAH, but was not agreeable to medication adjustments to allow for this to be possible - If he should change his mind; recommendation is for trial of Invega orally to establish tolerability, then consideration for Invega Sustenna - unwilling for this today 04/01 - 04/03 - Continue current medication regimen - Continues to refuse FARAH, will continue discussion daily as this is the reported preference of his CRR 04/04 -Questionable positive PPD measuring 13 mm but history of confinement places him at higher risk. Patient refused chest x-ray today but we will reapproach. No active symptoms of infection. Order for sputum culture and smear today for confirmation. 04/05 -PPD now appears negative. Would suggest follow through with sputum smear and culture for confirmation as previously ordered -Continue treatment plan as above 04/06 - PPD reportedly negative, patient unable to follow-up with sputum smear - therefore discontinued - Continue medication regimen as above - unwilling to discuss conversion to an FARAH - Meeting today with representation from [facility] to discuss discharge planning 04/07 - Continue medication regimen as above - remains unwilling to discuss changes - Additional meeting with CRR and CM scheduled for next week - We have been regularly assessing patient's condition and appropriateness to go outside since his 30-day treatment plan review. As patient continues to be unwilling to participate in a meaningful conversation with providers regarding his condition, we continue to be unable to determine if he is appropriate to be taken off the unit - therefore will await ability to discuss the topic in a meaningful way prior to making this determination. Will continue regular evaluation. 04/08 - 04/12 - Continue current medication regimen, as patient unwilling to discuss changes - Attempted again to determine if appropriate to go outside, patient unwilling to participate in conversation despite being told the goal of allowing him to go outside - Meeting with CM and CRR director scheduled for 04/13 at 1030 04/13 - Continue Zyprexa 30mg daily - unwilling to engage in conversation to discuss changes - Remains unwilling to engage in conversation to determine if he is appropriate to go outside, he has been made aware this is a possibility for him - Meeting for attempted diversion resulted in decision to no longer hold patient's CRR bed, [facility] admission is supported based on little to no improvement since admission and limited willingness to engage in conversations regarding medication adjustments - We have been asked to attempt to get a QuantiFERON-TB Gold Plus test, despite negative PPD reading within acceptable timeframe - pt unwilling to engage in conversation to obtain consent, further indicating why long-term inpatient psychiatric hospitalization is necessary. Will continue to attempt to gain consent for this testing to be completed 04/15 -The patient is slightly more communicative today and that he does answer at least one question which was whether he would be in agreement if we offered him a drug holiday from olanzapine. His response was in the affirmative.. He also said "thank you." -The patient continues to appear suspicious and he clearly is angry at and unwilling to cooperate with staff. He is particularly bumptious with individuals who he sees as not fully trained and fully qualified. -The plan remains transfer to [facility] for [facility] care. Our hope remains that we will be able to divert the patient from the [facility], but the patient, as noted above, remains uncommunicative and resistant. Perhaps contributing to the patient's obvious anger and distress is the fact that he has learned this week that his residential program is unwilling to allow him to return and has stopped holding his bed for other individuals. 04/16 - Continue current treatment plan, which includes holiday from olanzapine as a rapport building attempt, and due to concerns that he is more irritable and resistant to treatment - which is obviously not beneficial for his overall condition. - Attempted to communicate with the patient today via written/printed text - will add addendum to this note if patient was willing to complete the sheet and respond to questions 04/21 -Patient remains uncooperative and unwilling to participate in interviews, but has been out of his room more and attending some groups. He remains unwilling to discuss treatment options, including antipsychotic medication. 04/22 - Patient remains unwilling for medications, but is interacting with peers appropriately and attending groups. Will try discontinuing private room and placing him with a roommate, is perhaps increased socialization will be therapeutic for him. 04/23 -no change, patient still unwilling for medications(other than marijuana and benzos) 04/24 -The patient remains angry, suspicious, and largely uncommunicative. He spoke briefly with the attending psychiatrist today in order to request privileges to go outdoors with staff, and was able to cooperate with a fresh air break, but subsequently was angry, bumptious, and willing to cooperate with assessments. 04/25 - Valium 5mg dose yesterday appeared to lead to some disinhibited verbally agitated behavior, with the Valium dose being discontinued following that one dose. Pt is fixated on Valium and on temazepam. refusal to take other medications with. Handling a roommate decently currently. Pt refusing to attend groups. Limited engagement with peers and staff occurring. no change to plan today 04/26 no change to plan today 04/27 -The patient cooperated with an interview today after several weeks of flatly refusing, sometimes rudely refusing to speak to providers. Today, the patient not voiced any delusional material and was able to specifically answer questions regarding perceptual disturbances. 04/28 -no change. 04/29 -start ziprasidone 20 mg twice daily with meals. Reviewed risks, benefits and common side effects including sedation and the need to take with food. 04/30 maintained ziprasidone at current dose today given pt's tendency to refuse medications mikey if notice any s/e, considering raising dose tomorrow 05/01 -Based on the patient's behavior today there seems to be no evidence that the patient is enjoying any particular benefit from ziprasidone. To the contrary, he may have become more bumptious and withdrawn. My recommendation is that we continue to observe him on ziprasidone 20 mg twice a day before increasing his dose further, possibly over the weekend. 05/02 -continue current medication and consider dose increase next week. It is likely that it will take weeks to show benefit from antipsychotic medication given the severity and chronicity of his symptoms, and his history of treatment resistance. He would be a good candidate for clozapine, but has never been willing to consider it. 05/03 -increase ziprasidone to 40 mg twice daily with food. Continue to encourage group attendance. 05/04 - Continue recently increased dose of ziprasidone 40mg BID with food 05/05 - Continue as above; limited change in presentation at this time 05/06 - Pt agreeable to titrating ziprasidone to 60mg BID, starting with this evening's dose. - Is superficially cooperative with conversation, but remains resistant to unit programming and more in-depth interactions with staff - Continues to be unable/unwilling to discuss status of delusional beliefs; however, appear to be ongoing as patient has reported that he is to be discharge, that there is a court order for him to leave, and that he has an apartment secured to move into - despite not having contact with individuals other than his manager of case 05/07 - Continue as above, limited change in presentation 05/08 - Continue as above, consider need for further titration of ziprasidone - Limited change in presentation, but has been superficially pleasant 05/09 - continue as above, considering potential to further titrate ziprasidone 60mg bid with meals, as pt was more willing to engage repairer typewriter even more then prior times (last seen by this repairer typewriter about 9 days ago) will maintain as is for now but considering raising to 80mg bid, 05/10 continue plan unchanged 05/11 - Continue ziprasidone at 60mg BID - unwilling to engage in discussion regarding further titration - Would suggest titration to 80mg BID, especially as he has verbalized o ngoing delusional beliefs - Continue to engage patient in discussion regarding possible diversion plan; reach out to the county to discuss options and re-evaluate condition 05/12 - Continue as above, patient again unwilling to engage in conversation long enough to discuss medication titration - Consider titration to 80mg BID when able to discuss further, ongoing reported delusions that he is "not sick" and "does not have schizophrenia" 05/13 - Continue as above - patient more agreeable to conversation today, actually meeting with this provider in the office - Ongoing delusional belief that he does not have a diagnosis of schizophrenia, but behaviors not likely to be harmful to patient in the outpatient setting if he is met with adequate supports - Will attempt to schedule meeting to involve county in discussion of possible diversion plan (2) Substance abuse: 02/25 - Pt has reported history of substance abuse, and recommendation has cons istently been for avoidance of substances with significant abuse potential. - PDMP queried - most recent prescriptions below - lorazepam 0.5mg #60 tabs for 30 day supply - Dr. Alves - filled 2018 - alprazolam 0.5mg #90 tabs for 30 day supply - Dr. Lopez - filled 01/16/2019 - temazepam 30mg #30 caps for 30 day supply - Dr. Lopez - filled 01/16/2019 - Will continue lorazepam 0.5mg BID prn on admission, as only medication that is seemingly active - toxicology screen is negative for benzodiazepines, which questions if he has been taking the medication appropriately - Ideally will taper and discontinue the lorazepam, as recommendation remains that substances with abuse potential be avoided 02/26 -The patient's outpatient providers, during a meeting this morning, report that the patient tends to successfully convince physicians to prescribe benzodiazepines for him and that, in the past, he has abused him to the degree that he is practically obtunded. 02/27 -A repeat check of the PDMP reveals that the patient is consistently being prescribed lorazepam 0.5 mg twice daily (number 60/month) by a Dr. Brent Alves. He is also being prescribed alprazolam 0.[address] mg [address] Jeff Lopez, with the most recent previous prescription of alprazolam being on 01/16/[address] Lopez also prescribed temazepam 30 mg capsules #30 on 01/16/2019. According to his residential providers, no temazepam capsules were found among the patient's belongings. His most recent prescription for lorazepam 0.5 mg tablets was filled on 02/12/2019. 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 In the past, he reportedly has used clonazepam and temazepam. -I advised the patient that because of his history of misuse of benzodiazepines we would not be prescribing benzodiazepines during his hospital stay. An as needed order for lorazepam has not been used during hospital stay, and I discontinued the order today. 03/02 - Will need to coordinate care with his PCP and outpatient psychiatrist prior to discharge regarding the above. 03/04 - Charge nurse spoke with the above offices regarding concern for continued benzodiazepine prescriptions - Records will be faxed to their offices on discharge, as all benzodiazepines were discontinued during this hospitalization 03/06 -The patient did not request benzodiazepines and did not complain of anxiety today. I suggested to him that perhaps Abilify is also helping with anxiety in his case, and he responded by saying "perhaps." 03/09 -Today, the patient is insisting that what he needs is "benzodiazepines," and explains that the reason he "needs" benzodiazepines is that he has "benzodiazepine receptors," and that he is the only medications that work. He is unable to process warnings about the risks of benzodiazepines in the elderly, including increased risk of falls and mortality. Clearly, the patient is seeking benzodiazepines and has no insight into the associated risks. He also insists that he has never had trouble with benzodiazepines in the past, although there is well-documented of this. 03/10 -Today, the patient repeated his insistence that he needs benzodiazepines and that benzodiazepines are the only medications that work because he has "benzodiazepine receptors." After being told that everyone has central nervous system receptors to which benzodiazepines may attach, he replied, "That may be, but some of people need to have benzodiazepines forearm benzodiazepine receptor s. 03/12 -Continues to request Benzodiazepines. 03/13 -Requests Valium for his "benzodiazepines receptors." 03/27 -Refuses to cooperate with assessment today, but has recently told staff that he needs "either Valium or Ativan." -The patient apparently has no working insight into his history of abuse of prescription medications (benzodiazepines). 04/15 -The patient has not reference to request for benzodiazepines recently. However, the context is that he has not communicated much of anything directly, a other than the occasional need for self-care items. 04/24 -Today, the patient repeats his request for benzodiazepines, and insists that he is "supposed" to be taking diazepam 10 mg 3 times a day and temazepam for sleep every night. 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 Unfortunately, the exact opposite seems to have occurred. Not only was the patient was uncooperative subsequent to a dose of Valium, he seems to have been disinhibited by it and shouting "get out" or "get away" several times when approached by staff 04/25 - pt focused on seeking temazepam, or Valium 04/27 -The patient does have a history of substance dependence. However, the current plan and expected disposition is for the patient to be transferred to an extended care inpatient psychiatric unit where abuse of prescribed medications is unlikely to occur. Today, the patient calmly requests temazepam and says that he has tried a number of different sleeping pills, but "that is the one that works." The patient is also able to clearly say that he understands that temazepam is physically habituating that there are associated risks associated with temazepam including, but not limited to, a risk of falls, accidents, confusion, and depression. He tells us that at prescribed dosages he has not had any of these problems in the past. -Today, I agreed to a trial of temazepam 15 mg at bedtime, a dose that the patient says has been effective in the past. 04/30 close monitoring of temazepam given above, so far not taken 05/01 -After persistently insisting that he had to have temazepam in order to sleep and that nursing staff reports that he is sleeping through the night are wrong because he tends to rest with his eyes closed, the patient has not ask for temazepam and has not been given temazepam since it was ordered a week ago. The patient declined to explain why he has not ask for it, and refuses to answer questions today as to whether he is sleeping well without. In fact, when asked to explain why he had not taken any after insisting on having a prescribed, he shouted "get the hell out!!." Perhaps the patient has forgotten that it was ordered, but he seemed to remember the day after it was ordered and ask for not asked for it since. Our thought is that he may have somehow incorporated the order for temazepam into his delusional when belief system, based on his rage when asked to explain why he hasn't asked for it. (3) Hypertension: 02/25 - Continue home dose of clonidine 0.1mg qHS 03/01 Watch mildly elevated blood pressures as patient has been refusing clonidine 03/03 - BP normal past two days, and low today 03/10 -The patient's blood pressure today was 136/73. His pulse was 71 03/14 - elevated BP it is not urgent but will need monitored. 03/15 - BP WNL /8 - BP continues to be WNL 04/02 - BP remains within normal limits; continue daily vitals per standard admission order set - Will consider acute phase of this problem resolved at this time Risk Factors Assessment Male: Yes : Yes Do You Have Access To A Gun?: No Health Problems: Yes Mental Health Diagnoses: Yes Substance Use Disorders: Yes Protective Factors Assessment Sabianist Beliefs: No : No Responsible for Young Children: No Employed: No Stable Relationships: No Supportive Family: No Good Rapport with Provider: No Absence of Any Risk Factors Above: No Interval History Identifying Information SCOTT ROBERTO is a 74-year-old M who currently lives at a [facility] in [place], has a history of schizophrenia, and is known to our unit from several previous admissions, most recently in 09/2016. He was admitted on 02/24/19 16:40 on a 302 involuntary commitment for exacerbation of schizophrenia and heightened paranoia resulting in belief he needed to hide in a dumpster to seek refuge from impending bombings. He was found by [facility] staff and brought to the ED by police, and is on a 304 involuntary commitment as of 03/16/19. He has been referred to [facility] for long term care social worker treatment. Chief Complaint "Ok. We can talk." Review of Systems Notes Constitutional: denied Cardiovascular: denied Respiratory: denied Gastrointestinal: denied Neurological: denied Psychiatric: denies symptoms other than stated above Total of at least 10 systems reviewed, pertinent positives as above and in HPI. Sleep Information Total Hours of Sleep: 8.5 Sleep Comments: pt on q-15 minute checks Meal Information Percent Meal Consumed - Breakfast: 100 Percent Meal Consumed - Lunch: 100 Percent Meal Consumed - Dinner: 100 Nutrition Comment: per meal record Subjective Subjective Patient was seen & assessed and interval progress reviewed with treatment team. Staff reports the patient has continued to be cooperative and superficially pleasant. Pt continues to verbalize delusional beliefs to staff at times, but he is not acting on these beliefs. Attempts to be made today to schedule a meeting with the patient, his manager of case, and the county to determine if it is possible to consider a diversion plan - [facility] and we still have not been informed of an anticipated bed date. Pt was seen today to assess progress since admission. Pt was even willing to meet with this provider in an office, which likely has not been done since he was admitted. Pt was cooperative with conversation and participated appropriately. He states he is doing fine, but admits he would like to go home. He tolerated a discussion about looking into possible plans other than [facility]. Pt states that while he prefers to return to live independently in his apartment, he would be willing to consider a [facility] - "If I had more information, sure." Pt had previously been willing for a referral, but refused to sign the paperwork in order for it to be faxed. The patient asks at one point, "I'm not sick, what is my diagnosis?" This provider informed him that he does have a diagnosis of schizophrenia, while attempting to reassure the patient that we have seen rather significant improvement in his condition. Pt did not appear to be upset by this response, but when this provider asked if he had any other questions or concerns, the patient stated - "Juan Diego Francois... no..." in an irritated manner. He was excused from our visit after asking, "is that everything, can I go now?" Physical Exam Psychiatric Orientation: alert and cooperative (more cooperative today than he has been in a while, superficially pleasant) Apperance: appropriately dressed, appropriately groomed and appeared stated age Eye Contact: good eye contact Motor Behavior: steady gait and station and no abnormal motor movements Speech: normal rate/rhythm/volume of speech (more spontaneous, but still brief responses to questions) Affect: + flat affect (appearing less irritable today) Mood: + depressed mood (situational, admitting he does not want to be here) Otherwise, patient states mood is "good, I'm not sick" Thought Process: goal directed thought process and + concrete thought process Thought Content: + delusions (again stating that he does not have schizophrenia); no hopelessness Suicidal Thoughts: denies suicidal thoughts Homicidal Thoughts: denies homicidal thoughts Hallucinations: no auditory hallucinations and no visual hallucinations Cognition: remote memory grossly intact, attention grossly intact and language grossly intact Insight: + impaired insight Judgement: + impaired judgement Vital Signs (Past 24 Hours) Last Vital Signs Temp 36.6 C 05/13/19 06:50 Pulse 58 L 05/13/19 06:50 Resp 18 05/13/19 06:50 BP 104/57 L 05/13/19 06:50 Pulse Ox 96 02/24/19 08:10 Results & Data Current Inpatient Medications Current Inpatient Medications: Current Inpatient Medications Acetaminophen (Tylenol) 650 mg PO Q4H PRN PRN Reason: Headache or Minor Fever Stop: 05/23/19 08:14 Al Hydrox/Mg Hydrox/Simethicone (Maalox) 30 ml PO Q4H PRN PRN Reason: GI Upset Stop: 05/23/19 08:14 Benztropine Mesylate (Cogentin) 0.5 mg PO BID PRN PRN Reason: dystonia Stop: 05/23/19 08:14 Bismuth Subsalicylate (Kaopectate) 15 ml PO PRN PRN PRN Reason: Loose Stool Stop: 05/23/19 08:14 Clonidine HCl (Catapres) 0.1 mg PO HS MAG Stop: 05/23/19 21:59 Last Admin: 05/12/19 21:07 Dose: 0.1 mg Documented by: Cyanocobalamin (Vitamin B-12) 500 mcg PO DAILY MAG Stop: 05/23/19 08:59 Last Admin: 05/13/19 08:42 Dose: 500 mcg Documented by: Hydroxyzine HCl (Vistaril) 25 mg PO Q4H PRN PRN Reason: Anxiety Stop: 05/23/19 08:14 Hydroxyzine HCl (Vistaril) 50 mg PO HSZ PRN PRN Reason: Insomnia Stop: 05/23/19 08:14 Magnesium Hydroxide (Milk Of Magnesia) 30 ml PO DAILY PRN PRN Reason: Heartburn Stop: 05/23/19 08:19 Magnesium Oxide (Mag-Ox) 400 mg PO DAILY MAG Stop: 05/23/19 08:59 Last Admin: 05/13/19 08:41 Dose: 400 mg Documented by: Miscellaneous (Remove Nicoderm Patch) 1 ea N/A HS [facility] Stop: 05/23/19 21:59 Last Admin: 05/12/19 21:07 Dose: Not Given Documented by: Multivitamins (Multivitamin Tab) 1 tab PO DAILY MAG Stop: 05/23/19 08:59 Last Admin: 05/13/19 08:42 Dose: 1 tab Documented by: Nicotine (Nicoderm Cq) 14 mg TD QAM [facility] Stop: 05/23/19 08:59 Last Admin: 05/13/19 08:44 Dose: Not Given Documented by: Olanzapine (Zyprexa) 10 mg IM HS PRN PRN Reason: Undecided Stop: 05/23/19 08:19 Pyridoxine HCl (Vitamin B-6) 100 mg PO DAILY MAG Stop: 05/23/19 08:59 Last Admin: 05/13/19 08:42 Dose: 100 mg Documented by: Sodium Chloride (Stanley Nasal) 1 - 2 sprays NA PRN PRN PRN Reason: Nasal Dryness/Congestion Stop: 05/23/19 08:19 Ziprasidone (Geodon) 60 mg PO BIDM [facility] Stop: 06/05/19 17:44 Last Admin: 05/13/19 08:41 Dose: 60 mg Documented by: Mental Health & Subst Abuse Tx Therapist Name of Therapist: Denies Program Aide Group Work Name of Program Aide Group Work: Shruti Lopez Phone Number for Program Aide Group Work: Case Management Appointment Comment: [phone], [place] [address] Post Discharge Appointments Primary Care Physician Name Of Family Doctor: Dr. Lopez Contact Information Discharge Discharge Address: [address] [place] [address], [place] [address] CPT Code CPT Code 59370 (1) Schizophrenia Schizophrenia type: paranoid schizophrenia Qualified Code(s): F20.0 - Paranoid schizophrenia (2) Hypertension Hypertension type: essential hypertension Qualified Code(s): I10 - Essential (primary) hypertension
[2019-05-13] MEDS: cloNIDine HCL 0.1 MG TAB PO SCH (20:37)
[2019-05-14] MEDS: ZIPRASIDONE HCL 20 MG CAP PO SCH ×2 (08:26→17:25)
[2019-05-14] MEDS: PYRIDOXINE HCL 50 MG TAB PO SCH (08:27)
[2019-05-14] MEDS: MULTIVITAMIN TAB PO SCH (08:27)
[2019-05-14] MEDS: MAGNESIUM OXIDE 400 MG TAB PO SCH (08:27)
[2019-05-14] MEDS: NICOTINE 14 MG/24 HR PATCH TD SCH (08:27)
[2019-05-14] MEDS: CYANOCOBALAMIN 500 MCG TABLET (VITAMIN B-12) PO SCH (08:27)
--- NOTE | 2019-05-14 09:41 | Psychiatric Progress Note ---
Date of Service May 14, 2019 Impression / Recommendations Impression Patient remains poorly engaged in treatment, refusing most groups. He has been showing some mild improvement in his condition, and is at least superficially pleasant with interactions with staff. Pt was improving to the point of his private room being discontinued, which he has tolerated thus far. [facility], we still do not have a bed date. County will likely be contacted to discuss if a diversion plan should be considered. He does intermittently verbalize ongoing delusional beliefs, but these have been ongoing for a long time. Pt has been compliant with trial of ziprasidone, titrated to 60mg BID. Would consider if further titration to 80mg BID is necessary; however, condition is showing stable improvement and patient's willingness for only brief conversations has not allowed for this discussion. Given the chronicity and severity of his condition, it may take weeks to see benefit from medication. The current plan is for the patient to be transferred for long-term psychiatric hospitalization, given his inability to cooperate with treatment, given his inability to attend his own physical needs without the availability of the full spectrum of psychiatric services at the inpatient level of care, and ongoing psychosis with auditory hallucinations and paranoia. Will continue to explore if there is a possibility for a diversion plan, given some improvements seen during his admission. (1) Schizophrenia: 02/25 - Continue home medication regimen - as refusing offerings of his antipsychotic, will likely require olanzapine IM (or alternative agent) over objection, given clear evidence of paranoia and delusional thought process - previously stabilized on this medication - Pt agreeable to taking all other medications, with exception of antipsychotic as mentioned above - Admitted to a locked inpatient behavioral health unit, on q15 minute safety checks - Encourage medication initiation/adjustments as indicated - Encourage participation in group and recreational therapies - Gather collateral information from outpatient providers and [facility] staff - Suggest family meeting to involve outpatient supports in safety planning - Reschedule appropriate aftercare appointments 02/26 -Patient indicates willingness to sign a release for the CRR [facility], will get collateral from their staff. -File for 303 involuntary commitment to be held tomorrow. -Recommend medications over objection, with an IM Zyprexa backup for refusal of oral medication. Involve outpatient treatment team to discuss ways to improve stability and compliance; consider long-acting injectable antipsychotic. -Order fasting labs for monitoring on an atypical antipsychotic once patient is more cooperative. 02/27 -The patient was retrained at his involuntary commitment hearing (303) this morning. -He has continuously and consistently refused psychiatric medications to date. However, today, when I explained that that a option that might become necessary in his case is medication over objection, and an intramuscular form, the patient said that he understood and that he would try medications that I p rescribe. His initial preference would be olanzapine, but because olanzapine is not available in a long acting depot form, we would first like to try aripiprazole. He indicates that he is taken aripiprazole in the past and has been able to tolerate it, although he does not believe that it has been particularly helpful. -A trial dose of aripiprazole 15 mg by mouth, as a one-time dose, has been o rdered and he assessed for efficacy. 02/28 -Appears to be tolerating initiation of Abilify so far. Remains delusional, paranoid. May consider further titration tomorrow -Aricept discontinued at patient's request on 02/27/2019. The medication has not been demonstrated to be efficacious for cognitive impairment associated with long-standing schizophrenia however we should be vigilant for slowing of mentation following discontinuation. 03/01 Patient fixated and irrational regarding access to clothing item as above today. Hospital environment becoming incorporated and delusions. Consider p ossibility that the aripiprazole is contributing to activation. We will increase to 20 mg tomorrow and also start Risperdal 1 mg p.o. twice daily as as needed. 03/02 - Continue with aripiprazole at 20mg daily, consider need for further titration - if tolerating and effective, eventual plan will be for conversion to Abilify Maintena - Pt has not yet utilized risperidone 03/03 - Increase aripiprazole to 25mg (equivalent to 30mg pill) and change to liquid formulation to decrease risk of cheeking/nonadherence, as patient does not believe he needs medication and had been noncompliant prior to ho spitalization. - Fasting glucose and lipid profile ordered for tomorrow for monitoring on an atypical antipsychotic. - Private room due to psychosis, agitation, and inappropriate disrobing/sexual behavior. - Meeting with BCM and CRR staff when patient able to tolerate. 03/04 - Continue aripiprazole 25mg liquid (30mg pill equivalent) and continue to observe for improvement in thought process/content - consider conversion to Maintena if effective, versus trial of another agent if improvement remains limited - Fasting labs reviewed - all values WNL - Continue medically necessary private room - Request meeting with CRR staff, in order to obtain details about patient's proximity to baseline 03/05 -Patient refusing liquid aripiprazole, but agrees to take the pill: Ordered 30 mg daily. -Schedule meeting with his test case developer, CRR and psych rehab staff. Consider involuntary outpatient commitment at the time of discharge. 03/06 -The patient has improved in that he is more reality based at this point. He continues to harbor fixed, systematized delusions, but is generally able to focus on reality based topics. -Although the patient tells me that he does not feel that aripiprazole has been effective, he is able to accept my opinion in the opinion of the staff that he has improved in response to aripiprazole. -The patient's main objection to aripiprazole oral solution is that he does not like the way it tastes, and within this context, he tells us that he is willing to accept Abilify Maintenaand requests that it be injected into his buttock. Abilify Maintena 300 mg IM ordered, and oral Abilify discontinued. We will resume oral Abilify if the patient subsequently changes his mind and refuses the injection. 03/07 resuming Abilify oral given his refusal of FARAH form of Abilify 03/08 is taking Abilify po form but refusing Abilify Maintena form. advise close monitoring for potential of checking given pt's tendency to not want to take medications. 03/09 -The patient is flatly refusing to take aripiprazole in the form of Abilify Maintena. He is also been hesitant to take oral Abilify, but has been doing so. -The patient's lack of cooperation is thought possibly to be related to an un-expressed desire to not be discharged back to the community. He told me today that he left his meeting with his community providers after a few seconds because "just the side of them made me extremely anxious. My pulse elevated to 140." Later, he told me that he was still anxious about it and his pulse was "still around 130." The patient allowed me to take his pulse, and it was approximately 76. At that point he said, "did I say pulse? I meant systolic blood pressure." And when I pointed out that his systolic blood pressure of 130 is not considered to be a particular concern, he said "I mean diastolic." -Our hope had been that the patient would agree to accept a Depo form of medication. He was refusing Haldol Decanoate because of various side effects. Risperidone constant was ruled out as a first-line Depo medication because of the frequency of administration (the patient tends to get into power struggles over medications) and because he says that he is sensitive to "big needles." Invega would be an option, but currently the patient is being so uncooperative that our concern would be that he would cheek the oral tablets that we would have to give him first. Accordingly, the new strategy will be to discontinue Abilify, and resume olanzapine with olanzapine IM over objection if necessary. We will begin the olanzapine Zydis 20 mg at bedtime 03/10 -The patient took the prescribed dose of olanzapine Zydis 20 mg at bedtime last night. Today, he tells me that it "did not help at all." However, staff report that he has been somewhat more agreeable, more pleasant, and less paranoid today. -As he has with other providers, today he told me that I should have given him olanzapine 5 mg "to start", and I explained that he was already on ol anzapine 20 mg when he came into the hospital and we know that he is able to tolerate that dose. He tells me that he did, in fact tolerate the dose and is not aware of any side effects, but, somewhat illogically, insisted that the dose was "too high for a starting dose." 03/11 - Continue current medication regimen at this time - olanzapine 20mg daily - Encourage participation in the milieu and in group programming as tolerated 03/12 -Continue current medication regimen. The patient's condition has not yet improved. -The patient does participate in select groups, but often tends to be dis ruptive. 03/13 -Today, the patient seems to be somewhat more cooperative and less frankly delusional. It was possible to engage in a mostly reality based conversation for 5 or 10 minutes at a time. Also, although he was unhappy with me when I refused to provide him with a dose of Valium for anxiety, he was able to remain pleasant and calm at this time, did not storm from the room." 03/14 and 03/15 -no change in medication will work on therapeutic alliance given patient is not participating 03/16 -304 involuntary commitment granted. -Patient remains completely uncooperative with treatment, refused his Zyprexa Zydis last evening, but then ultimately took it before he received the injection. I have a high suspicion for cheeking of antipsychotic medication, and we will continue to be vigilant with mouth checks, and work towards a long- acting injectable. 03/17 -Patient has been on Zyprexa 20 mg at bedtime for 1 week, with limited response. He is refusing to discuss other medication options. Per records, he has been prescribed up to 30 mg olanzapine in the past, so will increase his dose to this previously tolerated dose, as it is 1 of the few medications he has been willing to take. Continue IM backup for refusal, and Zyprexa Zydis formulation to decrease risk of cheeking. He is not compliant with mouth checks, but have asked staff to try to observe him for 10 minutes after taking the Zydis to ensure he is not spitting it out before it dissolves. 03/18 -Continue Zyprexa Zydis 30 mg at bedtime with IM backup. Consider switch to a different medication (?oral paliperidone with IM backup) if irritability and agitation continues. He has tried virtually every atypical antipsychotic and reports none of them were effective (although some trials were short due to nonadherence) and has a history of dystonia on haloperidol. Clozapine would be a reasonable choice, but he has been unwilling to even discuss medication options. -Consider some component of cognitive decline which could be contributing to his worsening presentation and will need to be monitored and worked up further once he is more psychiatrically stable. -Refer to [facility] in the event that he does not improve and long-term inpatient treatment is needed. 03/19 - Proceed with [facility] referral. 03/20 - Continue current medication regimen; patient refused EKG and CXR yesterday - refused again today - Continue attempts to gather information to make a referral to [facility] 03/23 - Proceed with [facility] referral - patient has refused EKG and CXR for multiple attempts. We will send most recent tests available - Continue current medication regimen at this time 03/24 -Attempted to hold diversion meeting with his outpatient [facility], [facility] director, and the [facility] MH/ID; patient refused to attend or participate in the meeting. 03/25 - 03/26 - Continue treatment plan as above - no change in patient's condition and he remains unwilling to participate meaningfully in treatment - Continue with [facility] referral 03/27 -The patient has been informed that the plan at this point is to transfer him to [facility] for long-term inpatient psychiatric treatment, given his refusal to adhere with treatment and his associated behaviors in the community when not adherent with psychiatric treatment. -The patient continues to refuse mouth checks after given dosages of Zyprexa Zydis, and there is some question regarding whether he is actually ingesting this medication. He also would not cooperate with laboratory testing. -There has been a question regarding the patient's cognitive functions, and prior to admission he had been taking Aricept. When he does cooperate with this, I have not seen evidence of any substantial cognitive impairment. He may have mild cognitive impairment, but does not fully cooperate with formal cognitive assessment. He easily recalls the names of his providers, the names of the medications he is taking, the names of the various infectious agents that he believes are causing some of his psychiatric symptoms, the names of certain chemicals that he believes will rid him of the reference to infections, and is able to discuss current events such as recent news items. His assertion that he wants to return to his apartment in the community seems belied by his steadfast refusal to cooperate with those interventions I would make it possible for him to return, and there is some suspicion that although the patient remains floridly psychotic he may also be intentionally sabotaging discharge. 03/28 - 03/30 -There is been no change director the past 2 weeks, and [facility]. 03/31 - Continue current medication regimen - Pt briefly verbalized willingness for FARAH, but was not agreeable to medication adjustments to allow for this to be possible - If he should change his mind; recommendation is for trial of Invega orally to establish tolerability, then consideration for Invega Sustenna - unwilling for this today 04/01 - 04/03 - Continue current medication regimen - Continues to refuse FARAH, will continue discussion daily as this is the reported preference of his CRR 04/04 -Questionable positive PPD measuring 13 mm but history of confinement places him at higher risk. Patient refused chest x-ray today but we will reapproach. No active symptoms of infection. Order for sputum culture and smear today for confirmation. 04/05 -PPD now appears negative. Would suggest follow through with sputum smear and culture for confirmation as previously ordered -Continue treatment plan as above 04/06 - PPD reportedly negative, patient unable to follow-up with sputum smear - therefore discontinued - Continue medication regimen as above - unwilling to discuss conversion to an FARAH - Meeting today with representation from [facility] to discuss discharge planning 04/07 - Continue medication regimen as above - remains unwilling to discuss changes - Additional meeting with CRR and CM scheduled for next week - We have been regularly assessing patient's condition and appropriateness to go outside since his 30-day treatment plan review. As patient continues to be unwilling to participate in a meaningful conversation with providers regarding his condition, we continue to be unable to determine if he is appropriate to be taken off the unit - therefore will await ability to discuss the topic in a meaningful way prior to making this determination. Will continue regular evaluation. 04/08 - 04/12 - Continue current medication regimen, as patient unwilling to discuss changes - Attempted again to determine if appropriate to go outside, patient unwilling to participate in conversation despite being told the goal of allowing him to go outside - Meeting with CM and CRR director scheduled for 04/13 at 1030 04/13 - Continue Zyprexa 30mg daily - unwilling to engage in conversation to discuss changes - Remains unwilling to engage in conversation to determine if he is appropriate to go outside, he has been made aware this is a possibility for him - Meeting for attempted diversion resulted in decision to no longer hold patient's CRR bed, [facility] admission is supported based on little to no improvement since admission and limited willingness to engage in conversations regarding medication adjustments - We have been asked to attempt to get a QuantiFERON-TB Gold Plus test, despite negative PPD reading within acceptable timeframe - pt unwilling to engage in conversation to obtain consent, further indicating why long-term inpatient psychiatric hospitalization is necessary. Will continue to attempt to gain consent for this testing to be completed 04/15 -The patient is slightly more communicative today and that he does answer at least one question which was whether he would be in agreement if we offered him a drug holiday from olanzapine. His response was in the affirmative.. He also said "thank you." -The patient continues to appear suspicious and he clearly is angry at and unwilling to cooperate with staff. He is particularly bumptious with individuals who he sees as not fully trained and fully qualified. -[facility]. Our hope remains that we will be able to [facility] the [facility], but the patient, as noted above, remains uncommunicative and resistant. Perhaps contributing to the patient's obvious anger and distress is the fact that he has learned this week that his residential program is unwilling to allow him to return and has stopped holding his bed for other individuals. 04/16 - Continue current treatment plan, which includes holiday from olanzapine as a rapport building attempt, and due to concerns that he is more irritable and resistant to treatment - which is obviously not beneficial for his overall condition. - Attempted to communicate with the patient today via written/printed text - will add addendum to this note if patient was willing to complete the sheet and respond to questions 04/21 -Patient remains uncooperative and unwilling to participate in interviews, but has been out of his room more and attending some groups. He remains unwilling to discuss treatment options, including antipsychotic medication. 04/22 - Patient remains unwilling for medications, but is interacting with peers appropriately and attending groups. Will try discontinuing private room and placing him with a roommate, is perhaps increased socialization will be therapeutic for him. 04/23 -no change, patient still unwilling for medications(other than marijuana and benzos) 04/24 -The patient remains angry, suspicious, and largely uncommunicative. He spoke briefly with the attending psychiatrist today in order to request privileges to go outdoors with staff, and was able to cooperate with a fresh air break, but subsequently was angry, bumptious, and willing to cooperate with assessments. 04/25 - Valium 5mg dose yesterday appeared to lead to some disinhibited verbally agitated behavior, with the Valium dose being discontinued following that one dose. Pt is fixated on Valium and on temazepam. refusal to take other medications with. Handling a roommate decently currently. Pt refusing to attend groups. Limited engagement with peers and staff occurring. no change to plan today 04/26 no change to plan today 04/27 -The patient cooperated with an interview today after several weeks of flatly refusing, sometimes rudely refusing to speak to providers. Today, the patient not voiced any delusional material and was able to specifically answer questions regarding perceptual disturbances. 04/28 -no change. 04/29 -start ziprasidone 20 mg twice daily with meals. Reviewed risks, benefits and common side effects including sedation and the need to take with food. 04/30 maintained ziprasidone at current dose today given pt's tendency to refuse medications mikey if notice any s/e, considering raising dose tomorrow 05/01 -Based on the patient's behavior today there seems to be no evidence that the patient is enjoying any particular benefit from ziprasidone. To the contrary, he may have become more bumptious and withdrawn. My recommendation is that we continue to observe him on ziprasidone 20 mg twice a day before increasing his dose further, possibly over the weekend. 05/02 -continue current medication and consider dose increase next week. It is likely that it will take weeks to show benefit from antipsychotic medication given the severity and chronicity of his symptoms, and his history of treatment resistance. He would be a good candidate for clozapine, but has never been willing to consider it. 05/03 -increase ziprasidone to 40 mg twice daily with food. Continue to encourage group attendance. 05/04 - Continue recently increased dose of ziprasidone 40mg BID with food 05/05 - Continue as above; limited change in presentation at this time 05/06 - Pt agreeable to titrating ziprasidone to 60mg BID, starting with this evening's dose. - Is superficially cooperative with conversation, but remains resistant to unit programming and more in-depth interactions with staff - Continues to be unable/unwilling to discuss status of delusional beliefs; however, appear to be ongoing as patient has reported that he is to be discharge, that there is a court order for him to leave, and that he has an apartment secured to move into - despite not having contact with individuals other than his test case developer 05/07 - Continue as above, limited change in presentation 05/08 - Continue as above, consider need for further titration of ziprasidone - Limited change in presentation, but has been superficially pleasant 05/09 - continue as above, considering potential to further titrate ziprasidone 60mg bid with meals, as pt was more willing to engage public relations writer even more then prior times (last seen by this public relations writer about 9 days ago) will maintain as is for now but considering raising to 80mg bid, 05/10 continue plan unchanged 05/11 - Continue ziprasidone at 60mg BID - unwilling to engage in discussion regarding further titration - Would suggest titration to 80mg BID, especially as he has verbalized o ngoing delusional beliefs - Continue to engage patient in discussion regarding possible diversion plan; reach out to the county to discuss options and re-evaluate condition 05/12 - Continue as above, patient again unwilling to engage in conversation long enough to discuss medication titration - Consider titration to 80mg BID when able to discuss further, ongoing reported delusions that he is "not sick" and "does not have schizophrenia" 05/13 - Continue as above - patient more agreeable to conversation today, actually meeting with this provider in the office - Ongoing delusional belief that he does not have a diagnosis of schizophrenia, but behaviors not likely to be harmful to patient in the outpatient setting if he is met with adequate supports - Will attempt to schedule meeting to involve county in discussion of possible diversion plan 05/14 - Continue current mediation regimen - Plan is for meeting with case management and county representatives 05/15 to consider diversion planning - Still no word on anticipated bed date from [facility] (2) Substance abuse: 02/25 - Pt has reported history of substance abuse, and recommendation has consistently been for avoidance of substances with significant abuse potential. - PDMP queried - most recent prescriptions below - lorazepam 0.5mg #60 tabs for 30 day supply - Dr. Alves - filled 02/12/2019 - alprazolam 0.5mg #90 tabs for 30 day supply - Dr. Lopez - filled 01/16/2019 - temazepam 30mg #30 caps for 30 day supply - Dr. Lopez - filled 01/16/2019 - Will continue lorazepam 0.5mg BID prn on admission, as only medication that is seemingly active - toxicology screen is negative for benzodiazepines, which questions if he has been taking the medication appropriately - Ideally will taper and discontinue the lorazepam, as recommendation remains that substances with abuse potential be avoided 02/26 -The patient's outpatient providers, during a meeting this morning, report that the patient tends to successfully convince physicians to prescribe benzodiazepines for him and that, in the past, he has abused him to the degree that he is practically obtunded. 02/27 -A repeat check of the PDMP reveals that the patient is consistently being prescribed lorazepam 0.5 mg twice daily (number 60/month) by a Dr. Brent Alves. He is also being prescribed alprazolam 0.[address] mg [address] Jeff Lopez, with the most recent previous prescription of alprazolam being on 01/16/[address] Lopez also prescribed temazepam 30 mg capsules #30 on 01/16/2019. According to his residential providers, no temazepam capsules were found among the patient's belongings. His most recent prescription for lorazepam 0.5 mg tablets was filled on 02/12/2019. 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 In the past, he reportedly has used clonazepam and temazepam. -I advised the patient that because of his history of misuse of benzodiazepines we would not be prescribing benzodiazepines during his hospital stay. An as needed order for lorazepam has not been used during hospital stay, and I discontinued the order today. 03/02 - Will need to coordinate care with his PCP and outpatient psychiatrist prior to discharge regarding the above. 03/04 - Charge nurse spoke with the above offices regarding concern for continued benzodiazepine prescriptions - Records will be faxed to their offices on discharge, as all benzodiazepines were discontinued during this hospitalization 03/06 -The patient did not request benzodiazepines and did not complain of anxiety today. I suggested to him that perhaps Abilify is also helping with anxiety in his case, and he responded by saying "perhaps." 03/09 -Today, the patient is insisting that what he needs is "benzodiazepines," and explains that the reason he "needs" benzodiazepines is that he has "b enzodiazepine receptors," and that he is the only medications that work. He is unable to process warnings about the risks of benzodiazepines in the elderly, including increased risk of falls and mortality. Clearly, the patient is seeking benzodiazepines and has no insight into the associated risks. He also insists that he has never had trouble with benzodiazepines in the past, although there is well-documented of this. 03/10 -Today, the patient repeated his insistence that he needs benzodiazepines and that benzodiazepines are the only medications that work because he has "benzodiazepine receptors." After being told that everyone has central nervous system receptors to which benzodiazepines may attach, he replied, "That may be, but some of people need to have benzodiazepines forearm benzodiazepine receptors. 03/12 -Continues to request Benzodiazepines. 03/13 -Requests Valium for his "benzodiazepines receptors." 03/27 -Refuses to cooperate with assessment today, but has recently told staff that he needs "either Valium or Ativan." -The patient apparently has no working insight into his history of abuse of prescription medications (benzodiazepines). 04/15 -The patient has not reference to request for benzodiazepines recently. However, the context is that he has not communicated much of anything directly, a other than the occasional need for self-care items. 04/24 -Today, the patient repeats his request for benzodiazepines, and insists that he is "supposed" to be taking diazepam 10 mg 3 times a day and temazepam for sleep every night. 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 Unfortunately, the exact opposite seems to have occurred. Not only was the patient was uncooperative subsequent to a dose of Valium, he seems to have been disinhibited by it and shouting "get out" or "get away" several times when approached by staff 04/25 - pt focused on seeking temazepam, or Valium 04/27 -The patient does have a history of substance dependence. However, the current plan and expected disposition is for the patient to be transferred to an extended care inpatient psychiatric unit where abuse of prescribed medications is unlikely to occur. Today, the patient calmly requests temazepam and says that he has tried a number of different sleeping pills, but "that is the one that works." The patient is also able to clearly say that he understands that temazepam is physically habituating that there are associated risks associated with temazepam including, but not limited to, a risk of falls, accidents, confusion, and depression. He tells us that at prescribed dosages he has not had any of these problems in the past. -Today, I agreed to a trial of temazepam 15 mg at bedtime, a dose that the patient says has been effective in the past. 04/30 close monitoring of temazepam given above, so far not taken 05/01 -After persistently insisting that he had to have temazepam in order to sleep and that nursing staff reports that he is sleeping through the night are wrong because he tends to rest with his eyes closed, the patient has not ask for temazepam and has not been given temazepam since it was ordered a week ago. The patient declined to explain why he has not ask for it, and refuses to answer questions today as to whether he is sleeping well without. In fact, when asked to explain why he had not taken any after insisting on having a prescribed, he shouted "get the hell out!!." Perhaps the patient has forgotten that it was ordered, but he seemed to remember the day after it was ordered and ask for not asked for it since. Our thought is that he may have somehow incorporated the order for temazepam into his delusional when belief system, based on his rage when asked to explain why he hasn't asked for it. (3) Hypertension: 02/25 - Continue home dose of clonidine 0.1mg qHS 03/01 Watch mildly elevated blood pressures as patient has been refusing clonidine 03/03 - BP normal past two days, and low today 03/10 -The patient's blood pressure today was 136/73. His pulse was 71 03/14 - elevated BP it is not urgent but will need monitored. 03/15 - BP WNL 03/26 - BP continues to be WNL 04/02 - BP remains within normal limits; continue daily vitals per standard admission order set - Will consider acute phase of this problem resolved at this time Risk Factors Assessment Male: Yes : Yes Do You Have Access To A Gun?: No Health Problems: Yes Mental Health Diagnoses: Yes Substance Use Disorders: Yes Protective Factors Assessment Scientology Beliefs: No : No Responsible for Young Children: No Employed: No Stable Relationships: No Supportive Family: No Good Rapport with Provider: No Absence of Any Risk Factors Above: No Interval History Identifying Information SCOTT ROBERTO is a 74-year-old M who currently lives at a [facility] in [place], has a history of schizophrenia, and is known to our unit from several previous admissions, most recently in 09/2016. He was admitted on 02/24/19 16:40 on a 302 involuntary commitment for exacerbation of schizophrenia and heightened paranoia resulting in belief he needed to hide in a dumpster to seek refuge from impending bombings. He was found by [facility] staff and brought to the ED by police, and is on a 304 involuntary commitment as of 03/16/19. He has been referred to [facility] for retirement treatment. Chief Complaint "Hi. I'm fine." Review of Systems Notes Constitutional: denied Cardiovascular: denied Respiratory: denied Gastrointestinal: denied Neurological: denied Psychiatric: denies symptoms other than stated above Total of at least 10 systems reviewed, pertinent positives as above and in HPI. Sleep Information Total Hours of Sleep: 7 Sleep Comments: pt on q-15 minute checks Meal Information Percent Meal Consumed - Breakfast: 100 Percent Meal Consumed - Lunch: 100 Percent Meal Consumed - Dinner: 100 Nutrition Comment: per meal record Subjective Subjective Patient was seen & assessed and interval progress reviewed with nursing and social work. Staff reports the patient's condition has remained stable. He attended self-awareness group last evening and participated appropriately. There is a meeting scheduled for 05/15/19 with case management and county representatives to discuss the possibility of diversion planning, as there is no anticipated bed date for Martha. Pt was seen today to assess progress since admission. Pt states he is "fine" today. Pt admits he did attend some groups yesterday. Conversation remains only superficial, and patient responds with brief but pleasant answers. Pt was informed of anticipated meeting tomorrow and was invited to participate in the conversation to share his wishes for discharge. Pt states he would like to be updated of any changes prior to the meeting. Pt denies other needs or concerns at this time. Physical Exam Psychiatric Orientation: alert, oriented to person, oriented to place and cooperative (superficially pleasant) Apperance: appropriately dressed, appropriately groomed and appeared stated age Eye Contact: good eye contact Motor Behavior: steady gait and station and no abnormal motor movements Speech: normal rate/rhythm/volume of speech (brief responses to questions) Affect: + flat affect; no irritable affect Mood: no depressed mood and no anxious mood "I'm fine" Thought Process: goal directed thought process and + concrete thought process Thought Content: + delusions does not verbalize any delusional beliefs at time of encounter, though likely to be ongoing given patient's long history of disease Suicidal Thoughts: denies suicidal thoughts Homicidal Thoughts: denies homicidal thoughts Cognition: attention grossly intact and language grossly intact Insight: + impaired insight Judgement: + limited judgement (but is complying w/ medication, agreeable w/ treatment recommendations) Vital Signs (Past 24 Hours) Last Vital Signs Temp 36.7 C 05/14/19 06:00 Pulse 60 05/14/19 06:00 Resp 16 05/14/19 06:00 BP 113/60 05/14/19 06:00 Pulse Ox 96 02/24/19 08:10 Results & Data Current Inpatient Medications Current Inpatient Medications: Current Inpatient Medications Acetaminophen (Tylenol) 650 mg PO Q4H PRN PRN Reason: Headache or Minor Fever Stop: 05/23/19 08:14 Al Hydrox/Mg Hydrox/Simethicone (Maalox) 30 ml PO Q4H PRN PRN Reason: GI Upset Stop: 05/23/19 08:14 Benztropine Mesylate (Cogentin) 0.5 mg PO BID PRN PRN Reason: dystonia Stop: 05/23/19 08:14 Bismuth Subsalicylate (Kaopectate) 15 ml PO PRN PRN PRN Reason: Loose Stool Stop: 05/23/19 08:14 Clonidine HCl (Catapres) 0.1 mg PO HS MAG Stop: 05/23/19 21:59 Last Admin: 05/13/19 20:37 Dose: Not Given Documented by: Cyanocobalamin (Vitamin B-12) 500 mcg PO DAILY MAG Stop: 05/23/19 08:59 Last Admin: 05/14/19 08:27 Dose: 500 mcg Documented by: Hydroxyzine HCl (Vistaril) 25 mg PO Q4H PRN PRN Reason: Anxiety Stop: 05/23/19 08:14 Hydroxyzine HCl (Vistaril) 50 mg PO HSZ PRN PRN Reason: Insomnia Stop: 05/23/19 08:14 Magnesium Hydroxide (Milk Of Magnesia) 30 ml PO DAILY PRN PRN Reason: Heartburn Stop: 05/23/19 08:19 Magnesium Oxide (Mag-Ox) 400 mg PO DAILY MAG Stop: 05/23/19 08:59 Last Admin: 05/14/19 08:27 Dose: 400 mg Documented by: Miscellaneous (Remove Nicoderm Patch) 1 ea N/A HS MAG Stop: 05/23/19 21:59 Last Admin: 05/13/19 20:37 Dose: Not Given Documented by: Multivitamins (Multivitamin Tab) 1 tab PO DAILY MAG Stop: 05/23/19 08:59 Last Admin: 05/14/19 08:27 Dose: 1 tab Documented by: Nicotine (Nicoderm Cq) 14 mg TD QAM MAG Stop: 05/23/19 08:59 Last Admin: 05/14/19 08:27 Dose: Not Given Documented by: Olanzapine (Zyprexa) 10 mg IM HS PRN PRN Reason: Undecided Stop: 05/23/19 08:19 Pyridoxine HCl (Vitamin B-6) 100 mg PO DAILY MAG Stop: 05/23/19 08:59 Last Admin: 05/14/19 08:27 Dose: 100 mg Documented by: Sodium Chloride ([place] Nasal) 1 - 2 sprays NA PRN PRN PRN Reason: Nasal Dryness/Congestion Stop: 05/23/19 08:19 Ziprasidone (Geodon) 60 mg PO BIDM MAG Stop: 06/05/19 17:44 Last Admin: 05/14/19 08:26 Dose: 60 mg Documented by: Mental Health & Subst Abuse Tx Psychiatrist Name of Psychiatrist: [facility] - Dr. Avles Psychiatrist's Psych[facility]ment [facility] [id number] [place] [address] Therapist Name of Therapist: Sammy Fire Engine Pump Operator Name of Fire Engine Pump Operator: Shruti Lopez Phone Number for Fire Engine Pump Operator: Case Management Appointment Comment: [phone], [place] [address] Post Discharge Appointments Primary Care Physician Name Of Family Doctor: [facility] - Dr. Lopez Primary Care Provider Appointment Comment: [address], [address], [place] [address] Contact Information Discharge Discharge Address: [address] [place] [address], [place] [address] CPT Code CPT Code 39763 (1) Schizophrenia Schizophrenia type: paranoid schizophrenia Qualified Code(s): F20.0 - Paranoid schizophrenia (2) Hypertension Hypertension type: essential hypertension Qualified Code(s): I10 - Essential (primary) hypertension
[2019-05-14] MEDS: cloNIDine HCL 0.1 MG TAB PO SCH (21:17)
[2019-05-15] MEDS: CYANOCOBALAMIN 500 MCG TABLET (VITAMIN B-12) PO SCH (08:39)
[2019-05-15] MEDS: ZIPRASIDONE HCL 20 MG CAP PO SCH ×2 (08:39→17:26)
[2019-05-15] MEDS: MULTIVITAMIN TAB PO SCH (08:39)
[2019-05-15] MEDS: PYRIDOXINE HCL 50 MG TAB PO SCH (08:39)
[2019-05-15] MEDS: MAGNESIUM OXIDE 400 MG TAB PO SCH (08:39)
[2019-05-15] MEDS: NICOTINE 14 MG/24 HR PATCH TD SCH (08:41)
--- NOTE | 2019-05-15 09:08 | Psychiatric Progress Note ---
Date of Service May 15, 2019 Impression / Recommendations Impression Patient remains poorly engaged in treatment, refusing most groups. He has been showing some mild improvement in his condition, and is at least superficially pleasant with interactions with staff. Pt was improving to the point of his private room being discontinued, which he has tolerated thus far. [facility], we still do not have a bed date. County will likely be contacted to discuss if a diversion plan should be considered. He does intermittently verbalize ongoing delusional beliefs, but these have been ongoing for a long time. Pt has been compliant with trial of ziprasidone, titrated to 60mg BID. Would consider if further titration to 80mg BID is necessary; however, condition is showing stable improvement and patient's willingness for only brief conversations has not allowed for this discussion. Given the chronicity and severity of his condition, it may take weeks to see benefit from medication. The current plan is for the patient to be transferred for long-term psychiatric hospitalization, given his inability to cooperate with treatment, given his inability to attend his own physical needs without the availability of the full spectrum of psychiatric services at the inpatient level of care, and ongoing psychosis with auditory hallucinations and paranoia. Will continue to explore if there is a possibility for a diversion plan, given some improvements seen during his admission. (1) Schizophrenia: 02/25 - Continue home medication regimen - as refusing offerings of his antipsychotic, will likely require olanzapine IM (or alternative agent) over objection, given clear evidence of paranoia and delusional thought process - previously stabilized on this medication - Pt agreeable to taking all other medications, with exception of antipsychotic as mentioned above - Admitted to a locked inpatient behavioral health unit, on q15 minute safety checks - Encourage medication initiation/adjustments as indicated - Encourage participation in group and recreational therapies - Gather collateral information from outpatient providers and [employer] staff - Suggest family meeting to involve outpatient supports in safety planning - Reschedule appropriate aftercare appointments 02/26 -Patient indicates willingness to sign a release for the CR[facility] [employer], will get collateral from their staff. -File for 303 involuntary commitment to be held tomorrow. -Recommend medications over objection, with an IM Zyprexa backup for refusal of oral medication. Involve outpatient treatment team to discuss ways to improve stability and compliance; consider long-acting injectable antipsychotic. -Order fasting labs for monitoring on an atypical antipsychotic once patient is more cooperative. 02/27 -The patient was retrained at his involuntary commitment hearing (303) this morning. -He has continuously and consistently refused psychiatric medications to date. However, today, when I explained that that a option that might become necessary in his case is medication over objection, and an intramuscular form, the patient said that he understood and that he would try medications that I p rescribe. His initial preference would be olanzapine, but because olanzapine is not available in a long acting depot form, we would first like to try aripiprazole. He indicates that he is taken aripiprazole in the past and has been able to tolerate it, although he does not believe that it has been particularly helpful. -A trial dose of aripiprazole 15 mg by mouth, as a one-time dose, has been o rdered and he assessed for efficacy. 02/28 -Appears to be tolerating initiation of Abilify so far. Remains delusional, paranoid. May consider further titration tomorrow -Aricept discontinued at patient's request on 02/27/2019. The medication has not been demonstrated to be efficacious for cognitive impairment associated with long-standing schizophrenia however we should be vigilant for slowing of mentation following discontinuation. 03/01 Patient fixated and irrational regarding access to clothing item as above today. Hospital environment becoming incorporated and delusions. Consider p ossibility that the aripiprazole is contributing to activation. We will increase to 20 mg tomorrow and also start Risperdal 1 mg p.o. twice daily as as needed. 03/02 - Continue with aripiprazole at 20mg daily, consider need for further titration - if tolerating and effective, eventual plan will be for conversion to Abilify Maintena - Pt has not yet utilized risperidone 03/03 - Increase aripiprazole to 25mg (equivalent to 30mg pill) and change to liquid formulation to decrease risk of cheeking/nonadherence, as patient does not believe he needs medication and had been noncompliant prior to ho spitalization. - Fasting glucose and lipid profile ordered for tomorrow for monitoring on an atypical antipsychotic. - Private room due to psychosis, agitation, and inappropriate disrobing/sexual behavior. - Meeting with BCM and CRR staff when patient able to tolerate. 03/04 - Continue aripiprazole 25mg liquid (30mg pill equivalent) and continue to observe for improvement in thought process/content - consider conversion to Maintena if effective, versus trial of another agent if improvement remains limited - Fasting labs reviewed - all values WNL - Continue medically necessary private room - Request meeting with CRR staff, in order to obtain details about patient's proximity to baseline 03/05 -Patient refusing liquid aripiprazole, but agrees to take the pill: Ordered 30 mg daily. -Schedule meeting with his pillowcase cleaner, CRR and psych rehab staff. Consider involuntary outpatient commitment at the time of discharge. 03/06 -The patient has improved in that he is more reality based at this point. He continues to harbor fixed, systematized delusions, but is generally able to focus on reality based topics. -Although the patient tells me that he does not feel that aripiprazole has been effective, he is able to accept my opinion in the opinion of the staff that he has improved in response to aripiprazole. -The patient's main objection to aripiprazole oral solution is that he does not like the way it tastes, and within this context, he tells us that he is willing to accept Abilify Maintenaand requests that it be injected into his buttock. Abilify Maintena 300 mg IM ordered, and oral Abilify discontinued. We will resume oral Abilify if the patient subsequently changes his mind and refuses the injection. 03/07 resuming Abilify oral given his refusal of FARAH form of Abilify 03/08 is taking Abilify po form but refusing Abilify Maintena form. advise close monitoring for potential of checking given pt's tendency to not want to take medications. 03/09 -The patient is flatly refusing to take aripiprazole in the form of Abilify Maintena. He is also been hesitant to take oral Abilify, but has been doing so. -The patient's lack of cooperation is thought possibly to be related to an un-expressed desire to not be discharged back to the community. He told me today that he left his meeting with his community providers after a few seconds because "just the side of them made me extremely anxious. My pulse elevated to 140." Later, he told me that he was still anxious about it and his pulse was "still around 130." The patient allowed me to take his pulse, and it was approximately 76. At that point he said, "did I say pulse? I meant systolic blood pressure." And when I pointed out that his systolic blood pressure of 130 is not considered to be a particular concern, he said "I mean diastolic." -Our hope had been that the patient would agree to accept a Depo form of medication. He was refusing Haldol Decanoate because of various side effects. Risperidone constant was ruled out as a first-line Depo medication because of the frequency of administration (the patient tends to get into power struggles over medications) and because he says that he is sensitive to "big needles." Invega would be an option, but currently the patient is being so uncooperative that our concern would be that he would cheek the oral tablets that we would have to give him first. Accordingly, the new strategy will be to discontinue Abilify, and resume olanzapine with olanzapine IM over objection if necessary. We will begin the olanzapine Zydis 20 mg at bedtime 03/10 -The patient took the prescribed dose of olanzapine Zydis 20 mg at bedtime last night. Today, he tells me that it "did not help at all." However, staff report that he has been somewhat more agreeable, more pleasant, and less paranoid today. -As he has with other providers, today he told me that I should have given him olanzapine 5 mg "to start", and I explained that he was already on ol anzapine 20 mg when he came into the hospital and we know that he is able to tolerate that dose. He tells me that he did, in fact tolerate the dose and is not aware of any side effects, but, somewhat illogically, insisted that the dose was "too high for a starting dose." 03/11 - Continue current medication regimen at this time - olanzapine 20mg daily - Encourage participation in the milieu and in group programming as tolerated 03/12 -Continue current medication regimen. The patient's condition has not yet improved. -The patient does participate in select groups, but often tends to be dis ruptive. 03/13 -Today, the patient seems to be somewhat more cooperative and less frankly delusional. It was possible to engage in a mostly reality based conversation for 5 or 10 minutes at a time. Also, although he was unhappy with me when I refused to provide him with a dose of Valium for anxiety, he was able to remain pleasant and calm at this time, did not storm from the room." 03/14 and 03/15 -no change in medication will work on therapeutic alliance given patient is not participating 03/16 -304 involuntary commitment granted. -Patient remains completely uncooperative with treatment, refused his Zyprexa Zydis last evening, but then ultimately took it before he received the injection. I have a high suspicion for cheeking of antipsychotic medication, and we will continue to be vigilant with mouth checks, and work towards a long- acting injectable. 03/17 -Patient has been on Zyprexa 20 mg at bedtime for 1 week, with limited response. He is refusing to discuss other medication options. Per records, he has been prescribed up to 30 mg olanzapine in the past, so will increase his dose to this previously tolerated dose, as it is 1 of the few medications he has been willing to take. Continue IM backup for refusal, and Zyprexa Zydis formulation to decrease risk of cheeking. He is not compliant with mouth checks, but have asked staff to try to observe him for 10 minutes after taking the Zydis to ensure he is not spitting it out before it dissolves. 03/18 -Continue Zyprexa Zydis 30 mg at bedtime with IM backup. Consider switch to a different medication (?oral paliperidone with IM backup) if irritability and agitation continues. He has tried virtually every atypical antipsychotic and reports none of them were effective (although some trials were short due to nonadherence) and has a history of dystonia on haloperidol. Clozapine would be a reasonable choice, but he has been unwilling to even discuss medication options. -Consider some component of cognitive decline which could be contributing to his worsening presentation and will need to be monitored and worked up further once he is more psychiatrically stable. -Refer to [facility] in the event that he does not improve and long-term inpatient treatment is needed. 03/19 - Proceed with [facility] referral. 03/20 - Continue current medication regimen; patient refused EKG and CXR yesterday - refused again today - Continue attempts to gather information to make a referral to [facility] 03/23 - Proceed with [facility] referral - patient has refused EKG and CXR for multiple attempts. We will send most recent tests available - Continue current medication regimen at this time 03/24 -Attempted to hold diversion meeting with his outpatient [facility], [employer] director, and the [facility] MH/ID; patient refused to attend or participate in the meeting. 03/25 - 03/26 - Continue treatment plan as above - no change in patient's condition and he remains unwilling to participate meaningfully in treatment - Continue with [facility] referral 03/27 -The patient has been informed that the plan at this point is to transfer him to [facility] for long-term inpatient psychiatric treatment, given his refusal to adhere with treatment and his associated behaviors in the community when not adherent with psychiatric treatment. -The patient continues to refuse mouth checks after given dosages of Zyprexa Zydis, and there is some question regarding whether he is actually ingesting this medication. He also would not cooperate with laboratory testing. -There has been a question regarding the patient's cognitive functions, and prior to admission he had been taking Aricept. When he does cooperate with this, I have not seen evidence of any substantial cognitive impairment. He may have mild cognitive impairment, but does not fully cooperate with formal cognitive assessment. He easily recalls the names of his providers, the names of the medications he is taking, the names of the various infectious agents that he believes are causing some of his psychiatric symptoms, the names of certain chemicals that he believes will rid him of the reference to infections, and is able to discuss current events such as recent news items. His assertion that he wants to return to his apartment in the community seems belied by his steadfast refusal to cooperate with those interventions I would make it possible for him to return, and there is some suspicion that although the patient remains floridly psychotic he may also be intentionally sabotaging discharge. 03/28 - 03/30 -There is been no exchange mechanic the past 2 weeks, and long-[facility]. 03/31 - Continue current medication regimen - Pt briefly verbalized willingness for FARAH, but was not agreeable to medication adjustments to allow for this to be possible - If he should change his mind; recommendation is for trial of Invega orally to establish tolerability, then consideration for Invega Sustenna - unwilling for this today 04/01 - 04/03 - Continue current medication regimen - Continues to refuse FARAH, will continue discussion daily as this is the reported preference of his CRR 04/04 -Questionable positive PPD measuring 13 mm but history of confinement places him at higher risk. Patient refused chest x-ray today but we will reapproach. No active symptoms of infection. Order for sputum culture and smear today for confirmation. 04/05 -PPD now appears negative. Would suggest follow through with sputum smear and culture for confirmation as previously ordered -Continue treatment plan as above 04/06 - PPD reportedly negative, patient unable to follow-up with sputum smear - therefore discontinued - Continue medication regimen as above - unwilling to discuss conversion to an FARAH - Meeting today with representation from [facility] to discuss discharge planning 04/07 - Continue medication regimen as above - remains unwilling to discuss changes - Additional meeting with CRR and CM scheduled for next week - We have been regularly assessing patient's condition and appropriateness to go outside since his 30-day treatment plan review. As patient continues to be unwilling to participate in a meaningful conversation with providers regarding his condition, we continue to be unable to determine if he is appropriate to be taken off the unit - therefore will await ability to discuss the topic in a meaningful way prior to making this determination. Will continue regular evaluation. 04/08 - 04/12 - Continue current medication regimen, as patient unwilling to discuss changes - Attempted again to determine if appropriate to go outside, patient unwilling to participate in conversation despite being told the goal of allowing him to go outside - Meeting with CM and CRR director scheduled for 04/13 at 1030 04/13 - Continue Zyprexa 30mg daily - unwilling to engage in conversation to discuss changes - Remains unwilling to engage in conversation to determine if he is appropriate to go outside, he has been made aware this is a possibility for him - Meeting for attempted diversion resulted in decision to no longer hold patient's CRR bed, [facility] admission is supported based on little to no improvement since admission and limited willingness to engage in conversations regarding medication adjustments - We have been asked to attempt to get a QuantiFERON-TB Gold Plus test, despite negative PPD reading within acceptable timeframe - pt unwilling to engage in conversation to obtain consent, further indicating why long-term inpatient psychiatric hospitalization is necessary. Will continue to attempt to gain consent for this testing to be completed 04/15 -The patient is slightly more communicative today and that he does answer at least one question which was whether he would be in agreement if we offered him a drug holiday from olanzapine. His response was in the affirmative.. He also said "thank you." -The patient continues to appear suspicious and he clearly is angry at and unwilling to cooperate with staff. He is particularly bumptious with individuals who he sees as not fully trained and fully qualified. -The [facility] remains [facility]. Our hope remains that we will be able to divert the [facility], but the patient, as noted above, remains uncommunicative and resistant. Perhaps contributing to the patient's obvious anger and distress is the fact that he has learned this week that his residential program is unwilling to allow him to return and has stopped holding his bed for other individuals. 04/16 - Continue current treatment plan, which includes holiday from olanzapine as a rapport building attempt, and due to concerns that he is more irritable and resistant to treatment - which is obviously not beneficial for his overall condition. - Attempted to communicate with the patient today via written/printed text - will add addendum to this note if patient was willing to complete the sheet and respond to questions 04/21 -Patient remains uncooperative and unwilling to participate in interviews, but has been out of his room more and attending some groups. He remains unwilling to discuss treatment options, including antipsychotic medication. 04/22 - Patient remains unwilling for medications, but is interacting with peers appropriately and attending groups. Will try discontinuing private room and placing him with a roommate, is perhaps increased socialization will be therapeutic for him. 04/23 -no change, patient still unwilling for medications(other than marijuana and benzos) 04/24 -The patient remains angry, suspicious, and largely uncommunicative. He spoke briefly with the attending psychiatrist today in order to request privileges to go outdoors with staff, and was able to cooperate with a fresh air break, but subsequently was angry, bumptious, and willing to cooperate with assessments. 04/25 - Valium 5mg dose yesterday appeared to lead to some disinhibited verbally agitated behavior, with the Valium dose being discontinued following that one dose. Pt is fixated on Valium and on temazepam. refusal to take other medications with. Handling a roommate decently currently. Pt refusing to attend groups. Limited engagement with peers and staff occurring. no change to plan today 04/26 no change to plan today 04/27 -The patient cooperated with an interview today after several weeks of flatly refusing, sometimes rudely refusing to speak to providers. Today, the patient not voiced any delusional material and was able to specifically answer questions regarding perceptual disturbances. 04/28 -no change. 04/29 -start ziprasidone 20 mg twice daily with meals. Reviewed risks, benefits and common side effects including sedation and the need to take with food. 04/30 maintained ziprasidone at current dose today given pt's tendency to refuse medications mikey if notice any s/e, considering raising dose tomorrow 05/01 -Based on the patient's behavior today there seems to be no evidence that the patient is enjoying any particular benefit from ziprasidone. To the contrary, he may have become more bumptious and withdrawn. My recommendation is that we continue to observe him on ziprasidone 20 mg twice a day before increasing his dose further, possibly over the weekend. 05/02 -continue current medication and consider dose increase next week. It is likely that it will take weeks to show benefit from antipsychotic medication given the severity and chronicity of his symptoms, and his history of treatment resistance. He would be a good candidate for clozapine, but has never been willing to consider it. 05/03 -increase ziprasidone to 40 mg twice daily with food. Continue to encourage group attendance. 05/04 - Continue recently increased dose of ziprasidone 40mg BID with food 05/05 - Continue as above; limited change in presentation at this time 05/06 - Pt agreeable to titrating ziprasidone to 60mg BID, starting with this evening's dose. - Is superficially cooperative with conversation, but remains resistant to unit programming and more in-depth interactions with staff - Continues to be unable/unwilling to discuss status of delusional beliefs; however, appear to be ongoing as patient has reported that he is to be discharge, that there is a court order for him to leave, and that he has an apartment secured to move into - despite not having contact with individuals other than his pillowcase cleaner 05/07 - Continue as above, limited change in presentation 05/08 - Continue as above, consider need for further titration of ziprasidone - Limited change in presentation, but has been superficially pleasant 05/09 - continue as above, considering potential to further titrate ziprasidone 60mg bid with meals, as pt was more willing to engage technical writer even more then prior times (last seen by this technical writer about 9 days ago) will maintain as is for now but considering raising to 80mg bid, 05/10 continue plan unchanged 05/11 - Continue ziprasidone at 60mg BID - unwilling to engage in discussion regarding further titration - Would suggest titration to 80mg BID, especially as he has verbalized o ngoing delusional beliefs - Continue to engage patient in discussion regarding possible diversion plan; reach out to the county to discuss options and re-evaluate condition 05/12 - Continue as above, patient again unwilling to engage in conversation long enough to discuss medication titration - Consider titration to 80mg BID when able to discuss further, ongoing reported delusions that he is "not sick" and "does not have schizophrenia" 05/13 - Continue as above - patient more agreeable to conversation today, actually meeting with this provider in the office - Ongoing delusional belief that he does not have a diagnosis of schizophrenia, but behaviors not likely to be harmful to patient in the outpatient setting if he is met with adequate supports - Will attempt to schedule meeting to involve county in discussion of possible diversion plan 05/14 - Continue current mediation regimen - Plan is for meeting with case management and county representatives 05/15 to consider diversion planning - Still no word on anticipated bed date from [facility] 05/15 - Continue current medication regimen - Meeting scheduled today at 1200 to discuss possible diversion planning vers us attempt to expedite [facility] transfer - No estimated bed date provided (2) Substance abuse: 02/25 - Pt has reported history of substance abuse, and recommendation has consistently been for avoidance of substances with significant abuse potential. - PDMP queried - most recent prescriptions below - lorazepam 0.5mg #60 tabs for 30 day supply - Dr. Alves - filled 02/12/2019 - alprazolam 0.5mg #90 tabs for 30 day supply - Dr. Lopez - filled 01/16/2019 - temazepam 30mg #30 caps for 30 day supply - Dr. Lopez - filled 01/16/2019 - Will continue lorazepam 0.5mg BID prn on admission, as only medication that is seemingly active - toxicology screen is negative for benzodiazepines, which questions if he has been taking the medication appropriately - Ideally will taper and discontinue the lorazepam, as recommendation remains that substances with abuse potential be avoided 02/26 -The patient's outpatient providers, during a meeting this morning, report that the patient tends to successfully convince physicians to prescribe benzodiazepines for him and that, in the past, he has abused him to the degree that he is practically obtunded. 02/27 -A repeat check of the PDMP reveals that the patient is consistently being prescribed lorazepam 0.5 mg twice daily (number 60/month) by a Dr. Brent Alves. He is also being prescribed alprazolam 0.[address] mg [address] Jeff Lopez, with the most recent previous prescription of alprazolam being on 01/16/[address] Lopez also prescribed temazepam 30 mg capsules #30 on 01/16/2019. According to his residential providers, no temazepam capsules were found among the patient's belongings. His most recent prescription for lorazepam 0.5 mg tablets was filled on 02/12/2019. 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 In the past, he reportedly has used clonazepam and temazepam. -I advised the patient that because of his history of misuse of benzodiazepines we would not be prescribing benzodiazepines during his hospital stay. An as needed order for lorazepam has not been used during hospital stay, and I discontinued the order today. 03/02 - Will need to coordinate care with his PCP and outpatient psychiatrist prior to discharge regarding the above. 03/04 - Charge nurse spoke with the above offices regarding concern for continued benzodiazepine prescriptions - Records will be faxed to their offices on discharge, as all benzodiazepines were discontinued during this hospitalization 03/06 -The patient did not request benzodiazepines and did not complain of anxiety today. I suggested to him that perhaps Abilify is also helping with anxiety in his case, and he responded by saying "perhaps." 03/09 -Today, the patient is insisting that what he needs is "benzodiazepines," and explains that the reason he "needs" benzodiazepines is that he has "ludmila zodiazepine receptors," and that he is the only medications that work. He is unable to process warnings about the risks of benzodiazepines in the elderly, including increased risk of falls and mortality. Clearly, the patient is seeking benzodiazepines and has no insight into the associated risks. He also insists that he has never had trouble with benzodiazepines in the past, although there is well-documented of this. 03/10 -Today, the patient repeated his insistence that he needs benzodiazepines and that benzodiazepines are the only medications that work because he has "benzodiazepine receptors." After being told that everyone has central nervous system receptors to which benzodiazepines may attach, he replied, "That may be, but some of people need to have benzodiazepines forearm benzodiazepine receptors. 03/12 -Continues to request Benzodiazepines. 03/13 -Requests Valium for his "benzodiazepines receptors." 03/27 -Refuses to cooperate with assessment today, but has recently told staff that he needs "either Valium or Ativan." -The patient apparently has no working insight into his history of abuse of prescription medications (benzodiazepines). 04/15 -The patient has not reference to request for benzodiazepines recently. However, the context is that he has not communicated much of anything directly, a other than the occasional need for self-care items. 04/24 -Today, the patient repeats his request for benzodiazepines, and insists that he is "supposed" to be taking diazepam 10 mg 3 times a day and temazepam for sleep every night. 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 Unfortunately, the exact opposite seems to have occurred. Not only was the patient was uncooperative subsequent to a dose of Valium, he seems to have been disinhibited by it and shouting "get out" or "get away" several times when approached by staff 04/25 - pt focused on seeking temazepam, or Valium 04/27 -The patient does have a history of substance dependence. However, the current plan and expected disposition is for the patient to be transferred to an extended care inpatient psychiatric unit where abuse of prescribed medications is unlikely to occur. Today, the patient calmly requests temazepam and says that he has tried a number of different sleeping pills, but "that is the one that works." The patient is also able to clearly say that he understands that temazepam is physically habituating that there are associated risks associated with temazepam including, but not limited to, a risk of falls, accidents, confusion, and depression. He tells us that at prescribed dosages he has not had any of these problems in the past. -Today, I agreed to a trial of temazepam 15 mg at bedtime, a dose that the patient says has been effective in the past. 04/30 close monitoring of temazepam given above, so far not taken 05/01 -After persistently insisting that he had to have temazepam in order to sleep and that nursing staff reports that he is sleeping through the night are wrong because he tends to rest with his eyes closed, the patient has not ask for temazepam and has not been given temazepam since it was ordered a week ago. The patient declined to explain why he has not ask for it, and refuses to answer questions today as to whether he is sleeping well without. In fact, when asked to explain why he had not taken any after insisting on having a prescribed, he shouted "get the hell out!!." Perhaps the patient has forgotten that it was ordered, but he seemed to remember the day after it was ordered and ask for not asked for it since. Our thought is that he may have somehow incorporated the order for temazepam into his delusional when belief system, based on his rage when asked to explain why he hasn't asked for it. (3) Hypertension: 02/25 - Continue home dose of clonidine 0.1mg qHS 03/01 Watch mildly elevated blood pressures as patient has been refusing clonidine 03/03 - BP normal past two days, and low today 03/10 -The patient's blood pressure today was 136/73. His pulse was 71 03/14 - elevated BP it is not urgent but will need monitored. 03/15 - BP WNL 03/26 - BP continues to be WNL 04/02 - BP remains within normal limits; continue daily vitals per standard admission order set - Will consider acute phase of this problem resolved at this time Risk Factors Assessment Male: Yes : Yes Do You Have Access To A Gun?: No Health Problems: Yes Mental Health Diagnoses: Yes Substance Use Disorders: Yes Protective Factors Assessment Uatsdin Beliefs: No : No Responsible for Young Children: No Employed: No Stable Relationships: No Supportive Family: No Good Rapport with Provider: No Absence of Any Risk Factors Above: No Interval History Identifying Information SCOTT ROBERTO is a 74-year-old M who currently lives at a [facility] in [place], has a history of schizophrenia, and is known to our unit from several previous admissions, most recently in 09/2016. He was admitted on 02/24/19 16:40 on a 302 involuntary commitment for exacerbation of schizophrenia and heightened paranoia resulting in belief he needed to hide in a dumpster to seek refuge from impending bombings. He was found by [facility] staff and brought to the ED by police, and is on a 304 involuntary commitment as of 03/16/19. 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 Chief Complaint "How are you?" Review of Systems Notes Constitutional: denied Cardiovascular: denied Respiratory: denied Gastrointestinal: denied Neurological: denied Psychiatric: denies symptoms other than stated above Total of at least 10 systems reviewed, pertinent positives as above and in HPI. Sleep Information Total Hours of Sleep: 7.75 Sleep Comments: pt on q-15 minute checks Meal Information Percent Meal Consumed - Breakfast: 100 Percent Meal Consumed - Lunch: 100 Percent Meal Consumed - Dinner: 100 Nutrition Comment: per meal record Subjective Subjective Patient was seen & assessed and interval progress reviewed with treatment team. Staff report the patient continues to be compliant with medications and has actually increased his attendance at various group programming. Pt is scheduled for a treatment team meeting this afternoon at 12:00, to allow for discussion of ongoing treatment - as he has been compliant with treatment and we have not been informed of an anticipated discharge date for [facility]. Pt was seen today to assess progress since admission. Pt states he is "good" and participates in reciprocal conversation today. He was agreeable to meeting with this provider in the office today, and attended for the entire session until mutually dismissed. Pt rates his mood a 10/10 today, and states he is "happy". This provider inquired about his true mood, concerned that his prolonged stay may have a negative impact on his mood. Pt states, "I'm fine, I never really got de pressed recently." He denies SI/HI. Pt denies generalized anxiety, but admits he is somewhat worried about today's meeting. He admits he is planning to attend, and wanted to voice his desire that "I don't want to go to [facility]." When asked, patient states he would be agreeable to engaging in conversation about other treatment options that may be a possibility. He denies other needs at this time, but was encouraged to return with questions if desired. Physical Exam Psychiatric Orientation: alert, oriented x 3 and cooperative (superficially pleasant, willing to meet in office today) Apperance: appropriately dressed, appropriately groomed and appeared stated age Eye Contact: good eye contact Motor Behavior: steady gait and station and no abnormal motor movements Speech: normal rate/rhythm/volume of speech (responses remain brief, actively reciprocal conversation today) Affect: + flat affect; + mood not congruent with affect Mood: no depressed mood and no anxious mood "I'd say a 10, I'm pretty happy" Thought Process: goal directed thought process, clear/coherent thought process and + concrete thought process Thought Content: + delusions (long-standing history of delusions, none verbalized today); no hopelessness Suicidal Thoughts: denies suicidal thoughts Homicidal Thoughts: denies homicidal thoughts Hallucinations: no auditory hallucinations and no visual hallucinations Cognition: attention grossly intact and language grossly intact Insight: + impaired insight Judgement: + impaired judgement Vital Signs (Past 24 Hours) Last Vital Signs Temp 36.7 C 05/15/19 06:00 Pulse 62 05/15/19 06:00 Resp 16 05/15/19 06:00 BP 124/74 05/15/19 06:00 Pulse Ox 96 02/24/19 08:10 Results & Data Current Inpatient Medications Current Inpatient Medications: Current Inpatient Medications Acetaminophen (Tylenol) 650 mg PO Q4H PRN PRN Reason: Headache or Minor Fever Stop: 05/23/19 08:14 Al Hydrox/Mg Hydrox/Simethicone (Maalox) 30 ml PO Q4H PRN PRN Reason: GI Upset Stop: 05/23/19 08:14 Benztropine Mesylate (Cogentin) 0.5 mg PO BID PRN PRN Reason: dystonia Stop: 05/23/19 08:14 Bismuth Subsalicylate (Kaopectate) 15 ml PO PRN PRN PRN Reason: Loose Stool Stop: 05/23/19 08:14 Clonidine HCl (Catapres) 0.1 mg PO HS MAG Stop: 05/23/19 21:59 Last Admin: 05/14/19 21:17 Dose: Not Given Documented by: Cyanocobalamin (Vitamin B-12) 500 mcg PO DAILY MAG Stop: 05/23/19 08:59 Last Admin: 05/15/19 08:39 Dose: 500 mcg Documented by: Hydroxyzine HCl (Vistaril) 25 mg PO Q4H PRN PRN Reason: Anxiety Stop: 05/23/19 08:14 Hydroxyzine HCl (Vistaril) 50 mg PO HSZ PRN PRN Reason: Insomnia Stop: 05/23/19 08:14 Magnesium Hydroxide (Milk Of Magnesia) 30 ml PO DAILY PRN PRN Reason: Heartburn Stop: 05/23/19 08:19 Magnesium Oxide (Mag-Ox) 400 mg PO DAILY MAG Stop: 05/23/19 08:59 Last Admin: 05/15/19 08:39 Dose: 400 mg Documented by: Miscellaneous (Remove Nicoderm Patch) 1 ea N/A HS MAG Stop: 05/23/19 21:59 Last Admin: 05/14/19 21:17 Dose: Not Given Documented by: Multivitamins (Multivitamin Tab) 1 tab PO DAILY MAG Stop: 05/23/19 08:59 Last Admin: 05/15/19 08:39 Dose: 1 tab Documented by: Nicotine (Nicoderm Cq) 14 mg TD QAM MAG Stop: 05/23/19 08:59 Last Admin: 05/15/19 08:41 Dose: Not Given Documented by: Olanzapine (Zyprexa) 10 mg IM HS PRN PRN Reason: Undecided Stop: 05/23/19 08:19 Pyridoxine HCl (Vitamin B-6) 100 mg PO DAILY MAG Stop: 05/23/19 08:59 Last Admin: 05/15/19 08:39 Dose: 100 mg Documented by: Sodium Chloride ([place] Nasal) 1 - 2 sprays NA PRN PRN PRN Reason: Nasal Dryness/Congestion Stop: 05/23/19 08:19 Ziprasidone (Geodon) 60 mg PO BIDM MAG Stop: 06/05/19 17:44 Last Admin: 05/15/19 08:39 Dose: 60 mg Documented by: Mental Health & Subst Abuse Tx Psychiatrist Name of Psychiatrist: [facility] - Dr. Alves Psychiatrist's Psychiatric Appointment Comment: [id number], [place] [address] Therapist Name of Therapist: [facility] Name of [facility]: Shruti Guadalupe Lowell Resendez Jessica Phone Number for [employer] [facility] [employer] [facility]: Case Management Appointment Comment: [phone], [place] [address] Post Discharge Appointments Primary Care Physician Name Of Family Doctor: [facility] - Dr. Lopez Primary Care Provider Appointment Comment: [address] [facility] [address], [address], [place] [address] Contact Information Discharge Discharge Address: [address] [place] [address], [place] [address] CPT Code CPT Code 12146 (1) Schizophrenia Schizophrenia type: paranoid schizophrenia Qualified Code(s): F20.0 - Paran oid schizophrenia (2) Hypertension Hypertension type: essential hypertension Qualified Code(s): I10 - Essential (primary) hypertension
[2019-05-15] MEDS: cloNIDine HCL 0.1 MG TAB PO SCH (21:19)
[2019-05-16] MEDS: ZIPRASIDONE HCL 20 MG CAP PO SCH ×2 (08:41→18:01)
[2019-05-16] MEDS: MAGNESIUM OXIDE 400 MG TAB PO SCH (08:42)
[2019-05-16] MEDS: MULTIVITAMIN TAB PO SCH (08:42)
[2019-05-16] MEDS: PYRIDOXINE HCL 50 MG TAB PO SCH (08:42)
[2019-05-16] MEDS: CYANOCOBALAMIN 500 MCG TABLET (VITAMIN B-12) PO SCH (08:42)
[2019-05-16] MEDS: NICOTINE 14 MG/24 HR PATCH TD SCH (08:45)
[2019-05-16] MEDS: ACETAMINOPHEN 325 MG TAB PO PRN ×2 (13:05→17:08)
--- NOTE | 2019-05-16 16:20 | Psychiatric Progress Note ---
Date of Service May 16, 2019 Impression / Recommendations Impression Condition stable but chronic. Disposition still pending. (1) Schizophrenia: 02/25 - Continue home medication regimen - as refusing offerings of his antipsychotic, will likely require olanzapine IM (or alternative agent) over objection, given clear evidence of paranoia and delusional thought process - previously stabilized on this medication - Pt agreeable to taking all other medications, with exception of antipsychotic as mentioned above - Admitted to a locked inpatient behavioral health unit, on q15 minute safety checks - Encourage medication initiation/adjustments as indicated - Encourage participation in group and recreational therapies - Gather collateral information from outpatient providers and correction staff - Suggest family meeting to involve outpatient supports in safety planning - Reschedule appropriate aftercare appointments 02/26 -Patient indicates willingness to sign a release for the [facility] correction, will get collateral from their staff. -File for 303 involuntary commitment to be held tomorrow. -Recommend medications over objection, with an IM Zyprexa backup for refusal of oral medication. Involve outpatient treatment team to discuss ways to improve stability and compliance; consider long-acting injectable antipsychotic. -Order fasting labs for monitoring on an atypical antipsychotic once patient is more cooperative. 02/27 -The patient was retrained at his involuntary commitment hearing (303) this morning. -He has continuously and consistently refused psychiatric medications to date. However, today, when I explained that that a option that might become necessary in his case is medication over objection, and an intramuscular form, the patient said that he understood and that he would try medications that I prescribe. His initial preference would be olanzapine, but because olanzapine is not available in a long acting depot form, we would first like to try aripiprazole. He indicates that he is taken aripiprazole in the past and has been able to tolerate it, although he does not believe that it has been particularly helpful. -A trial dose of aripiprazole 15 mg by mouth, as a one-time dose, has been ordered and he assessed for efficacy. 02/28 -Appears to be tolerating initiation of Abilify so far. Remains delusional, paranoid. May consider further titration tomorrow -Aricept discontinued at patient's request on 02/27/2019. The medication has not been demonstrated to be efficacious for cognitive impairment associated with long-standing schizophrenia however we should be vigilant for slowing of mentation following discontinuation. 03/01 Patient fixated and irrational regarding access to clothing item as above today. Hospital environment becoming incorporated and delusions. Consider poss ibility that the aripiprazole is contributing to activation. We will increase to 20 mg tomorrow and also start Risperdal 1 mg p.o. twice daily as as needed. 03/02 - Continue with aripiprazole at 20mg daily, consider need for further titration - if tolerating and effective, eventual plan will be for conversion to Abilify Maintena - Pt has not yet utilized risperidone 03/03 - Increase aripiprazole to 25mg (equivalent to 30mg pill) and change to liquid formulation to decrease risk of cheeking/nonadherence, as patient does not believe he needs medication and had been noncompliant prior to hospi talization. - Fasting glucose and lipid profile ordered for tomorrow for monitoring on an atypical antipsychotic. - Private room due to psychosis, agitation, and inappropriate disrobing/sexual behavior. - Meeting with BCM and CRR staff when patient able to tolerate. 03/04 - Continue aripiprazole 25mg liquid (30mg pill equivalent) and continue to observe for improvement in thought process/content - consider conversion to Maintena if effective, versus trial of another agent if improvement remains limited - Fasting labs reviewed - all values WNL - Continue medically necessary private room - Request meeting with CRR staff, in order to obtain details about patient's proximity to baseline 03/05 -Patient refusing liquid aripiprazole, but agrees to take the pill: Ordered 30 mg daily. -Schedule meeting with his upper caser, CRR and psych rehab staff. Consider involuntary outpatient commitment at the time of discharge. 03/06 -The patient has improved in that he is more reality based at this point. He continues to harbor fixed, systematized delusions, but is generally able to focus on reality based topics. -Although the patient tells me that he does not feel that aripiprazole has been effective, he is able to accept my opinion in the opinion of the staff that he has improved in response to aripiprazole. -The patient's main objection to aripiprazole oral solution is that he does not like the way it tastes, and within this context, he tells us that he is willing to accept Abilify Maintenaand requests that it be injected into his buttock. Abilify Maintena 300 mg IM ordered, and oral Abilify discontinued. We will resume oral Abilify if the patient subsequently changes his mind and refuses the injection. 03/07 resuming Abilify oral given his refusal of FARAH form of Abilify 03/08 is taking Abilify po form but refusing Abilify Maintena form. advise close monitoring for potential of checking given pt's tendency to not want to take medications. 03/09 -The patient is flatly refusing to take aripiprazole in the form of Abilify Maintena. He is also been hesitant to take oral Abilify, but has been doing so. -The patient's lack of cooperation is thought possibly to be related to an un-expressed desire to not be discharged back to the community. He told me today that he left his meeting with his community providers after a few seconds because "just the side of them made me extremely anxious. My pulse elevated to 140." Later, he told me that he was still anxious about it and his pulse was "still around 130." The patient allowed me to take his pulse, and it was approximately 76. At that point he said, "did I say pulse? I meant systolic blood pressure." And when I pointed out that his systolic blood pressure of 130 is not considered to be a particular concern, he said "I mean diastolic." -Our hope had been that the patient would agree to accept a Depo form of medication. He was refusing Haldol Decanoate because of various side effects. Risperidone constant was ruled out as a first-line Depo medication because of the frequency of administration (the patient tends to get into power struggles over medications) and because he says that he is sensitive to "big needles." Invega would be an option, but currently the patient is being so uncooperative that our concern would be that he would cheek the oral tablets that we would have to give him first. Accordingly, the new strategy will be to discontinue Abilify, and resume olanzapine with olanzapine IM over objection if necessary. We will begin the olanzapine Zydis 20 mg at bedtime 03/10 -The patient took the prescribed dose of olanzapine Zydis 20 mg at bedtime last night. Today, he tells me that it "did not help at all." However, staff report that he has been somewhat more agreeable, more pleasant, and less paranoid today. -As he has with other providers, today he told me that I should have given him olanzapine 5 mg "to start", and I explained that he was already on olanz apine 20 mg when he came into the hospital and we know that he is able to tolerate that dose. He tells me that he did, in fact tolerate the dose and is not aware of any side effects, but, somewhat illogically, insisted that the dose was "too high for a starting dose." 03/11 - Continue current medication regimen at this time - olanzapine 20mg daily - Encourage participation in the milieu and in group programming as tolerated 03/12 -Continue current medication regimen. The patient's condition has not yet improved. -The patient does participate in select groups, but often tends to be disrup tive. 03/13 -Today, the patient seems to be somewhat more cooperative and less frankly delusional. It was possible to engage in a mostly reality based conversation for 5 or 10 minutes at a time. Also, although he was unhappy with me when I refused to provide him with a dose of Valium for anxiety, he was able to remain pleasant and calm at this time, did not storm from the room." 03/14 and 03/15 -no change in medication will work on therapeutic alliance given patient is not participating 03/16 -304 involuntary commitment granted. -Patient remains completely uncooperative with treatment, refused his Zyprexa Zydis last evening, but then ultimately took it before he received the injection. I have a high suspicion for cheeking of antipsychotic medication, and we will continue to be vigilant with mouth checks, and work towards a long- acting injectable. 03/17 -Patient has been on Zyprexa 20 mg at bedtime for 1 week, with limited response. He is refusing to discuss other medication options. Per records, he has been prescribed up to 30 mg olanzapine in the past, so will increase his dose to this previously tolerated dose, as it is 1 of the few medications he has been willing to take. Continue IM backup for refusal, and Zyprexa Zydis formulation to decrease risk of cheeking. He is not compliant with mouth checks, but have asked staff to try to observe him for 10 minutes after taking the Zydis to ensure he is not spitting it out before it dissolves. 03/18 -Continue Zyprexa Zydis 30 mg at bedtime with IM backup. Consider switch to a different medication (?oral paliperidone with IM backup) if irritability and agitation continues. He has tried virtually every atypical antipsychotic and reports none of them were effective (although some trials were short due to nonadherence) and has a history of dystonia on haloperidol. Clozapine would be a reasonable choice, but he has been unwilling to even discuss medication options. -Consider some component of cognitive decline which could be contributing to his worsening presentation and will need to be monitored and worked up further once he is more psychiatrically stable. -Refer to [facility] in the event that he does not improve and long-term inpatient treatment is needed. 03/19 - Proceed with [facility] referral. 03/20 - Continue current medication regimen; patient refused EKG and CXR yesterday - refused again today - Continue attempts to gather information to make a referral to [facility] 03/23 - Proceed with [facility] referral - patient has refused EKG and CXR for multiple attempts. We will send most recent tests available - Continue current medication regimen at this time 03/24 -Attempted to hold diversion meeting with his outpatient [facility], correction director, and the [facility]; patient refused to attend or participate in the meeting. 03/25 - 03/26 - Continue treatment plan as above - no change in patient's condition and he remains unwilling to participate meaningfully in treatment - Continue with [place] referral 03/27 -The patient has been informed that the plan at this point is to transfer him to [facility] for long-term inpatient psychiatric treatment, given his refusal to adhere with treatment and his associated behaviors in the community when not adherent with psychiatric treatment. -The patient continues to refuse mouth checks after given dosages of Zyprexa Zydis, and there is some question regarding whether he is actually ingesting this medication. He also would not cooperate with laboratory testing. -There has been a question regarding the patient's cognitive functions, and prior to admission he had been taking Aricept. When he does cooperate with this, I have not seen evidence of any substantial cognitive impairment. He may have mild cognitive impairment, but does not fully cooperate with formal cognitive assessment. He easily recalls the names of his providers, the names of the medications he is taking, the names of the various infectious agents that he believes are causing some of his psychiatric symptoms, the names of certain chemicals that he believes will rid him of the reference to infections, and is able to discuss current events such as recent news items. His assertion that he wants to return to his apartment in the community seems belied by his steadfast refusal to cooperate with those interventions I would make it possible for him to return, and there is some suspicion that although the patient remains floridly psychotic he may also be intentionally sabotaging discharge. 03/28 - 03/30 -There is been no policy change clerks supervisor the past 2 weeks, and long-term inpatient treatment at the [facility] is indicated. 03/31 - Continue current medication regimen - Pt briefly verbalized willingness for FARAH, but was not agreeable to medication adjustments to allow for this to be possible - If he should change his mind; recommendation is for trial of Invega orally to establish tolerability, then consideration for Invega Sustenna - unwilling for this today 04/01 - 04/03 - Continue current medication regimen - Continues to refuse FARAH, will continue discussion daily as this is the reported preference of his CRR 04/04 -Questionable positive PPD measuring 13 mm but history of confinement places him at higher risk. Patient refused chest x-ray today but we will reapproach. No active symptoms of infection. Order for sputum culture and smear today for confirmation. 04/05 -PPD now appears negative. Would suggest follow through with sputum smear and culture for confirmation as previously ordered -Continue treatment plan as above 04/06 - PPD reportedly negative, patient unable to follow-up with sputum smear - therefore discontinued - Continue medication regimen as above - unwilling to discuss conversion to an FARAH - Meeting today with representation from [facility] to discuss discharge planning 04/07 - Continue medication regimen as above - remains unwilling to discuss changes - Additional meeting with CRR and CM scheduled for next week - We have been regularly assessing patient's condition and appropriateness to go outside since his 30-day treatment plan review. As patient continues to be unwilling to participate in a meaningful conversation with providers regarding his condition, we continue to be unable to determine if he is appropriate to be taken off the unit - therefore will await ability to discuss the topic in a meaningful way prior to making this determination. Will continue regular evaluation. 04/08 - 04/12 - Continue current medication regimen, as patient unwilling to discuss changes - Attempted again to determine if appropriate to go outside, patient unwilling to participate in conversation despite being told the goal of allowing him to go outside - Meeting with CM and CRR director scheduled for 04/13 at 1030 04/13 - Continue Zyprexa 30mg daily - unwilling to engage in conversation to discuss changes - Remains unwilling to engage in conversation to determine if he is appropriate to go outside, he has been made aware this is a possibility for him - Meeting for attempted diversion resulted in decision to no longer hold patient's CRR bed, [place] admission is supported based on little to no improvement since admission and limited willingness to engage in conversations regarding medication adjustments - We have been asked to attempt to get a QuantiFERON-TB Gold Plus test, despite negative PPD reading within acceptable timeframe - pt unwilling to engage in conversation to obtain consent, further indicating why long-term inpatient psychiatric hospitalization is necessary. Will continue to attempt to gain consent for this testing to be completed 04/15 -The patient is slightly more communicative today and that he does answer at least one question which was whether he would be in agreement if we offered him a drug holiday from olanzapine. His response was in the affirmative.. He also said "thank you." -The patient continues to appear suspicious and he clearly is angry at and unwilling to cooperate with staff. He is particularly bumptious with individuals who he sees as not fully trained and fully qualified. -The plan remains transfer to the [facility] for long-term psychiatric care. Our hope remains that we will be able to divert the patient from the [facility] hospital, but the patient, as noted above, remains uncommunicative and resistant. Perhaps contributing to the patient's obvious anger and distress is the fact that he has learned this week that his residential program is unwilling to allow him to return and has stopped holding his bed for other individuals. 04/16 - Continue current treatment plan, which includes holiday from olanzapine as a rapport building attempt, and due to concerns that he is more irritable and resistant to treatment - which is obviously not beneficial for his overall condition. - Attempted to communicate with the patient today via written/printed text - will add addendum to this note if patient was willing to complete the sheet and respond to questions 04/21 -Patient remains uncooperative and unwilling to participate in interviews, but has been out of his room more and attending some groups. He remains unwilling to discuss treatment options, including antipsychotic medication. 04/22 - Patient remains unwilling for medications, but is interacting with peers appropriately and attending groups. Will try discontinuing private room and placing him with a roommate, is perhaps increased socialization will be therapeutic for him. 04/23 -no change, patient still unwilling for medications(other than marijuana and benzos) 04/24 -The patient remains angry, suspicious, and largely uncommunicative. He spoke briefly with the attending psychiatrist today in order to request pr ivileges to go outdoors with staff, and was able to cooperate with a fresh air break, but subsequently was angry, bumptious, and willing to cooperate with assessments. 04/25 - Valium 5mg dose yesterday appeared to lead to some disinhibited verbally agitated behavior, with the Valium dose being discontinued following that one dose. Pt is fixated on Valium and on temazepam. refusal to take other me dications with. Handling a roommate decently currently. Pt refusing to attend groups. Limited engagement with peers and staff occurring. no change to plan today 04/26 no change to plan today 04/27 -The patient cooperated with an interview today after several weeks of flatly refusing, sometimes rudely refusing to speak to providers. Today, the patient not voiced any delusional material and was able to specifically answer questions regarding perceptual disturbances. 04/28 -no change. 04/29 -start ziprasidone 20 mg twice daily with meals. Reviewed risks, benefits and common side effects including sedation and the need to take with food. 04/30 maintained ziprasidone at current dose today given pt's tendency to refuse medications mikey if notice any s/e, considering raising dose tomorrow 05/01 -Based on the patient's behavior today there seems to be no evidence that the patient is enjoying any particular benefit from ziprasidone. To the contrary, he may have become more bumptious and withdrawn. My recommendation is that we continue to observe him on ziprasidone 20 mg twice a day before increasing his dose further, possibly over the weekend. 05/02 -continue current medication and consider dose increase next week. It is likely that it will take weeks to show benefit from antipsychotic medication given the severity and chronicity of his symptoms, and his history of treatment resistance. He would be a good candidate for clozapine, but has never been willing to consider it. 05/03 -increase ziprasidone to 40 mg twice daily with food. Continue to encourage group attendance. 05/04 - Continue recently increased dose of ziprasidone 40mg BID with food 05/05 - Continue as above; limited change in presentation at this time 05/06 - Pt agreeable to titrating ziprasidone to 60mg BID, starting with this evening's dose. - Is superficially cooperative with conversation, but remains resistant to unit programming and more in-depth interactions with staff - Continues to be unable/unwilling to discuss status of delusional beliefs; however, appear to be ongoing as patient has reported that he is to be discharge, that there is a court order for him to leave, and that he has an apartment secured to move into - despite not having contact with individuals other than his upper caser 05/07 - Continue as above, limited change in presentation 05/08 - Continue as above, consider need for further titration of ziprasidone - Limited change in presentation, but has been superficially pleasant 05/09 - continue as above, considering potential to further titrate ziprasidone 60mg bid with meals, as pt was more willing to engage personal lines underwriter even more then prior times (last seen by this personal lines underwriter about 9 days ago) will maintain as is for now but considering raising to 80mg bid, 05/10 continue plan unchanged 05/11 - Continue ziprasidone at 60mg BID - unwilling to engage in discussion regarding further titration - Would suggest titration to 80mg BID, especially as he has verbalized ongo ing delusional beliefs - Continue to engage patient in discussion regarding possible diversion plan; reach out to the [facility] to discuss options and re-evaluate condition 05/12 - Continue as above, patient again unwilling to engage in conversation long enough to discuss medication titration - Consider titration to 80mg BID when able to discuss further, ongoing reported delusions that he is "not sick" and "does not have schizophrenia" 05/13 - Continue as above - patient more agreeable to conversation today, actually meeting with this provider in the office - Ongoing delusional belief that he does not have a diagnosis of schizophrenia, but behaviors not likely to be harmful to patient in the outpatient setting if he is met with adequate supports - Will attempt to schedule meeting to involve county in discussion of possible diversion plan 05/14 - Continue current mediation regimen - Plan is for meeting with case management and county representatives 05/15 to consider diversion planning - Still no word on anticipated bed date from [facility] 05/15 - Continue current medication regimen - Meeting scheduled today at 1200 to discuss possible diversion planning versus attempt to expedite [place] transfer - No estimated bed date provided 05/16 -Possible diversion to CRR with further planning to occur on Saturday -Continue medication regimen unchanged (2) Substance abuse: 02/25 - Pt has reported history of substance abuse, and recommendation has consistently been for avoidance of substances with significant abuse potential. - PDMP queried - most recent prescriptions below - lorazepam 0.5mg #60 tabs for 30 day supply - Dr. Alves - filled 02/12/2019 - alprazolam 0.5mg #90 tabs for 30 day supply - Dr. Lopez - filled 01/16/2019 - temazepam 30mg #30 caps for 30 day supply - Dr. Lopez - filled 01/16/2019 - Will continue lorazepam 0.5mg BID prn on admission, as only medication that is seemingly active - toxicology screen is negative for benzodiazepines, which questions if he has been taking the medication appropriately - Ideally will taper and discontinue the lorazepam, as recommendation remains that substances with abuse potential be avoided 02/26 -The patient's outpatient providers, during a meeting this morning, report that the patient tends to successfully convince physicians to prescribe benzodi azepines for him and that, in the past, he has abused him to the degree that he is practically obtunded. 02/27 -A repeat check of the PDMP reveals that the patient is consistently being prescribed lorazepam 0.5 mg twice daily (number 60/month) by a Dr. Brent Alves. He is also being prescribed alprazolam 0.5 mg [address] Jeff Lopez, with the most recent previous prescription of alprazolam being on 01/16/[address] Lopez also prescribed temazepam 30 mg capsules #30 on 01/16/2019. According to his residential providers, no temazepam capsules were found among the patient's belongings. His most recent prescription for lorazepam 0.5 mg tablets was filled on 02/12/2019. 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 In the past, he reportedly has used clonazepam and temazepam. -I advised the patient that because of his history of misuse of benzodi azepines we would not be prescribing benzodiazepines during his hospital stay. An as needed order for lorazepam has not been used during hospital stay, and I discontinued the order today. 03/02 - Will need to coordinate care with his PCP and outpatient psychiatrist prior to discharge regarding the above. 03/04 - Charge nurse spoke with the above offices regarding concern for continued benzodiazepine prescriptions - Records will be faxed to their offices on discharge, as all benzodiazepines were discontinued during this hospitalization 03/06 -The patient did not request benzodiazepines and did not complain of anxiety today. I suggested to him that perhaps Abilify is also helping with anxiety in his case, and he responded by saying "perhaps." 03/09 -Today, the patient is insisting that what he needs is "benzodiazepines," and explains that the reason he "needs" benzodiazepines is that he has "benzodiazepine receptors," and that he is the only medications that work. He is unable to process warnings about the risks of benzodiazepines in the elderly, including increased risk of falls and mortality. Clearly, the patient is seeking benzodiazepines and has no insight into the associated risks. He also insists that he has never had trouble with benzodiazepines in the past, although there is well-documented of this. 03/10 -Today, the patient repeated his insistence that he needs benzodiazepines and that benzodiazepines are the only medications that work because he has "benzodiazepine receptors." After being told that everyone has central nervous system receptors to which benzodiazepines may attach, he replied, "That may be, but some of people need to have benzodiazepines forearm benzodiazepine receptors. 03/12 -Continues to request Benzodiazepines. 03/13 -Requests Valium for his "benzodiazepines receptors." 03/27 -Refuses to cooperate with assessment today, but has recently told staff that he needs "either Valium or Ativan." -The patient apparently has no working insight into his history of abuse of prescription medications (benzodiazepines). 04/15 -The patient has not reference to request for benzodiazepines recently. However, the context is that he has not communicated much of anything directly, a other than the occasional need for self-care items. 04/24 -Today, the patient repeats his request for benzodiazepines, and insists that he is "supposed" to be taking diazepam 10 mg 3 times a day and temazepam for sleep every night. 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 Unfortunately, the exact opposite seems to have occurred. Not only was the patient was uncooperative subsequent to a dose of Valium, he seems to have been disinhibited by it and shouting "get out" or "get away" several times when approached by staff 04/25 - pt focused on seeking temazepam, or Valium 04/27 -The patient does have a history of substance dependence. However, the current plan and expected disposition is for the patient to be transferred to an extended care inpatient psychiatric unit where abuse of prescribed medications is unlikely to occur. Today, the patient calmly requests temazepam and says that he has tried a number of different sleeping pills, but "that is the one that works." The patient is also able to clearly say that he understands that temazepam is physically habituating that there are associated risks associated with temazepam including, but not limited to, a risk of falls, accidents, confusion, and depression. He tells us that at prescribed dosages he has not had any of these problems in the past. -Today, I agreed to a trial of temazepam 15 mg at bedtime, a dose that the patient says has been effective in the past. 04/30 close monitoring of temazepam given above, so far not taken 05/01 -After persistently insisting that he had to have temazepam in order to sleep and that nursing staff reports that he is sleeping through the night are wrong because he tends to rest with his eyes closed, the patient has not ask for temazepam and has not been given temazepam since it was ordered a week ago. The patient declined to explain why he has not ask for it, and refuses to answer questions today as to whether he is sleeping well without. In fact, when asked to explain why he had not taken any after insisting on having a prescribed, he shouted "get the hell out!!." Perhaps the patient has forgotten that it was ordered, but he seemed to remember the day after it was ordered and ask for not asked for it since. Our thought is that he may have somehow incorporated the order for temazepam into his delusional when belief system, based on his rage when asked to explain why he hasn't asked for it. (3) Hypertension: 02/25 - Continue home dose of clonidine 0.1mg qHS 03/01 Watch mildly elevated blood pressures as patient has been refusing clonidine 03/03 - BP normal past two days, and low today 03/10 -The patient's blood pressure today was 136/73. His pulse was 71 03/14 - elevated BP it is not urgent but will need monitored. 03/15 - BP WNL 03/26 - BP continues to be WNL 04/02 - BP remains within normal limits; continue daily vitals per standard admission order set - Will consider acute phase of this problem resolved at this time Risk Factors Assessment Male: Yes : Yes Do You Have Access To A Gun?: No Health Problems: Yes Mental Health Diagnoses: Yes Substance Use Disorders: Yes Protective Factors Assessment Presybeterian Beliefs: No : No Responsible for Young Children: No Employed: No Stable Relationships: No Supportive Family: No Good Rapport with Provider: No Absence of Any Risk Factors Above: No Interval History Identifying Information SCOTT ROBERTO is a 74-year-old M who currently lives at a [facility] in [place], has a history of schizophrenia, and is known to our unit from several previous admissions, most recently in 09/2016. He was admitted on 02/24/19 16:40 on a 302 involuntary commitment for exacerbation of schizophrenia and heightened paranoia resulting in belief he needed to hide in a dumpster to seek refuge from impending bombings. He was found by [facility] staff and brought to the ED by police, and is on a 304 involuntary commitment as of 03/16/19. He has been referred to [facility] for [facility] treatment. Chief Complaint "I am good". Review of Systems Sleep Information Total Hours of Sleep: 7 Sleep Comments: pt on q-15 minute checks Meal Information Percent Meal Consumed - Breakfast: 100 Percent Meal Consumed - Lunch: 100 Percent Meal Consumed - Dinner: 100 Nutrition Comment: per meal record Subjective Subjective Patient was seen & assessed and interval progress reviewed with treatment team. Per nursing, exciting development with possible pending [facility] diversion. Has been med compliant without acute events overnight. Patient pleasant on brief interview. States he feels "good" and expresses positive feelings about upcoming potential discharge from the hospital. "I guess it is like a senior living here isn't it?" When queried about his medication he states he is taking the Geodon and denies side effects but believes it is "absolutely nothing." Physical Exam Psychiatric Orientation: alert and cooperative Apperance: appropriately dressed, appropriately groomed and appeared stated age Eye Contact: good eye contact Motor Behavior: steady gait and station; + abnormal motor movements Speech: normal rate/rhythm/volume of speech Affect: euthymic affect Mood: no depressed mood Thought Process: goal directed thought process Thought Content: + delusions Suicidal Thoughts: denies suicidal thoughts Homicidal Thoughts: denies homicidal thoughts Cognition: attention grossly intact and language grossly intact Insight: + impaired insight Judgement: + impaired judgement Vital Signs (Past 24 Hours) Last Vital Signs Temp 36.7 C 05/16/19 06:53 Pulse 67 05/16/19 06:53 Resp 18 05/16/19 06:53 BP 115/62 05/16/19 06:53 Pulse Ox 96 02/24/19 08:10 Results & Data Current Inpatient Medications Current Inpatient Medications: Current Inpatient Medications Acetaminophen (Tylenol) 650 mg PO Q4H PRN PRN Reason: Headache or Minor Fever Stop: 05/23/19 08:14 Last Admin: 05/16/19 13:05 Dose: 650 mg Documented by: Al Hydrox/Mg Hydrox/Simethicone (Maalox) 30 ml PO Q4H PRN PRN Reason: GI Upset Stop: 05/23/19 08:14 Benztropine Mesylate (Cogentin) 0.5 mg PO BID PRN PRN Reason: dystonia Stop: 05/23/19 08:14 Bismuth Subsalicylate (Kaopectate) 15 ml PO PRN PRN PRN Reason: Loose Stool Stop: 05/23/19 08:14 Clonidine HCl (Catapres) 0.1 mg PO HS MAG Stop: 05/23/19 21:59 Last Admin: 05/15/19 21:19 Dose: 0.1 mg Documented by: Cyanocobalamin (Vitamin B-12) 500 mcg PO DAILY MAG Stop: 05/23/19 08:59 Last Admin: 05/16/19 08:42 Dose: 500 mcg Documented by: Hydroxyzine HCl (Vistaril) 25 mg PO Q4H PRN PRN Reason: Anxiety Stop: 05/23/19 08:14 Hydroxyzine HCl (Vistaril) 50 mg PO HSZ PRN PRN Reason: Insomnia Stop: 05/23/19 08:14 Magnesium Hydroxide (Milk Of Magnesia) 30 ml PO DAILY PRN PRN Reason: Heartburn Stop: 05/23/19 08:19 Magnesium Oxide (Mag-Ox) 400 mg PO DAILY MAG Stop: 05/23/19 08:59 Last Admin: 05/16/19 08:42 Dose: 400 mg Documented by: Miscellaneous (Remove Nicoderm Patch) 1 ea N/A HS MAG Stop: 05/23/19 21:59 Last Admin: 05/15/19 21:18 Dose: Not Given Documented by: Multivitamins (Multivitamin Tab) 1 tab PO DAILY MAG Stop: 05/23/19 08:59 Last Admin: 05/16/19 08:42 Dose: 1 tab Documented by: Nicotine (Nicoderm Cq) 14 mg TD QAM ON LICENSE OF [facility] Stop: 05/23/19 08:59 Last Admin: 05/16/19 08:45 Dose: Not Given Documented by: Olanzapine (Zyprexa) 10 mg IM HS PRN PRN Reason: Undecided Stop: 05/23/19 08:19 Pyridoxine HCl (Vitamin B-6) 100 mg PO DAILY ON LICENSE OF [facility] Stop: 05/23/19 08:59 Last Admin: 05/16/19 08:42 Dose: 100 mg Documented by: Sodium Chloride (Torreon Nasal) 1 - 2 sprays NA PRN PRN PRN Reason: Nasal Dryness/Congestion Stop: 05/23/19 08:19 Ziprasidone (Geodon) 60 mg PO BIDM MAG Stop: 06/05/19 17:44 Last Admin: 05/16/19 08:41 Dose: 60 mg Documented by: Mental Health & Subst Abuse Tx Psychiatrist Name of Psychiatrist: [facility] - Dr. Alves Psychiatrist's Psychiatric Appointment Comment: [id number], [place] [address] Therapist Name of Therapist: Denies Senior Health Educator Name of Senior Health Educator: Shruti Lopez Phone Number for Senior Health Educator: Case Management Appointment Comment: [phone], [place] [address] Post Discharge Appointments Primary Care Physician Name Of Family Doctor: [facility] - Dr. Lopez Primary Care Provider Appointment Comment: [phone], [address], [place] [address] Contact Information Discharge Discharge Address: [address] [place] [address], [place] [address] CPT Code CPT Code 22370 (1) Schizophrenia Schizophrenia type: paranoid schizophrenia Qualified Code(s): F20.0 - Paranoid schizophrenia (2) Hypertension Hypertension type: essential hypertension Qualified Code(s): I10 - Essential (primary) hypertension
[2019-05-16] MEDS ORDERED: ACETAMINOPHEN 325 MG TAB ONE (17:07)
[2019-05-16] MEDS ORDERED: ALUMINUM/MAGNESIUM SUSP 30 ML UDC PO PRN (20:44)
[2019-05-16] MEDS ORDERED: BISMUTH SUBSALICYLATE PER ML OMNICELL CHARGE PO PRN (20:45)
[2019-05-16] MEDS ORDERED: BENZTROPINE MESYLATE 0.5 MG TAB PO PRN (20:45)
[2019-05-16] MEDS ORDERED: MAGNESIUM HYDROXIDE SUSP 30 ML UDC PO PRN (20:46)
[2019-05-16] MEDS: cloNIDine HCL 0.1 MG TAB PO SCH (20:59)
[2019-05-17] MEDS: MAGNESIUM OXIDE 400 MG TAB PO SCH (08:09)
[2019-05-17] MEDS: ZIPRASIDONE HCL 20 MG CAP PO SCH ×2 (08:09→17:46)
[2019-05-17] MEDS: CYANOCOBALAMIN 500 MCG TABLET (VITAMIN B-12) PO SCH (08:09)
[2019-05-17] MEDS: PYRIDOXINE HCL 50 MG TAB PO SCH (08:09)
[2019-05-17] MEDS: MULTIVITAMIN TAB PO SCH (08:09)
[2019-05-17] MEDS: NICOTINE 14 MG/24 HR PATCH TD SCH (08:10)
[2019-05-17] MEDS: ACETAMINOPHEN 325 MG TAB PO PRN ×2 (08:15→16:53)
--- NOTE | 2019-05-17 16:24 | Psychiatric Progress Note ---
Date of Service May 17, 2019 Impression / Recommendations Impression Condition stable but chronic. Disposition pending. (1) Schizophrenia: 02/25 - Continue home medication regimen - as refusing offerings of his antipsychotic, will likely require olanzapine IM (or alternative agent) over objection, given clear evidence of paranoia and delusional thought process - previously stabilized on this medication - Pt agreeable to taking all other medications, with exception of antipsychotic as mentioned above - Admitted to a locked inpatient behavioral health unit, on q15 minute safety checks - Encourage medication initiation/adjustments as indicated - Encourage participation in group and recreational therapies - Gather collateral information from outpatient providers and usp staff - Suggest family meeting to involve outpatient supports in safety planning - Reschedule appropriate aftercare appointments 02/26 -Patient indicates willingness to sign a release for the [facility], will get collateral from their staff. -File for 303 involuntary commitment to be held tomorrow. -Recommend medications over objection, with an IM Zyprexa backup for refusal of oral medication. Involve outpatient treatment team to discuss ways to improve stability and compliance; consider long-acting injectable antipsychotic. -Order fasting labs for monitoring on an atypical antipsychotic once patient is more cooperative. 02/27 -The patient was retrained at his involuntary commitment hearing (303) this morning. -He has continuously and consistently refused psychiatric medications to date. However, today, when I explained that that a option that might become necessary in his case is medication over objection, and an intramuscular form, the patient said that he understood and that he would try medications that I prescribe. His initial preference would be olanzapine, but because olanzapine is not available in a long acting depot form, we would first like to try aripiprazole. He indicates that he is taken aripiprazole in the past and has been able to tolerate it, although he does not believe that it has been particularly helpful. -A trial dose of aripiprazole 15 mg by mouth, as a one-time dose, has been ordered and he assessed for efficacy. 02/28 -Appears to be tolerating initiation of Abilify so far. Remains delusional, paranoid. May consider further titration tomorrow -Aricept discontinued at patient's request on 02/27/2019. The medication has not been demonstrated to be efficacious for cognitive impairment associated with long-standing schizophrenia however we should be vigilant for slowing of menta tion following discontinuation. 03/01 Patient fixated and irrational regarding access to clothing item as above today. Hospital environment becoming incorporated and delusions. Consider possibility that the aripiprazole is contributing to activation. We will increase to 20 mg tomorrow and also start Risperdal 1 mg p.o. twice daily as as needed. 03/02 - Continue with aripiprazole at 20mg daily, consider need for further titration - if tolerating and effective, eventual plan will be for conversion to Abilify Maintena - Pt has not yet utilized risperidone 03/03 - Increase aripiprazole to 25mg (equivalent to 30mg pill) and change to liquid formulation to decrease risk of cheeking/nonadherence, as patient does not believe he needs medication and had been noncompliant prior to hospitaliza tion. - Fasting glucose and lipid profile ordered for tomorrow for monitoring on an atypical antipsychotic. - Private room due to psychosis, agitation, and inappropriate disrobing/sexual behavior. - Meeting with [facility] and [facility] staff when patient able to tolerate. 03/04 - Continue aripiprazole 25mg liquid (30mg pill equivalent) and continue to observe for improvement in thought process/content - consider conversion to Maintena if effective, versus trial of another agent if improvement remains limited - Fasting labs reviewed - all values WNL - Continue medically necessary private room - Request meeting with [facility] staff, in order to obtain details about patient's proximity to baseline 03/05 -Patient refusing liquid aripiprazole, but agrees to take the pill: Ordered 30 mg daily. -Schedule meeting with his residential case manager, CRR and psych rehab staff. Consider involuntary outpatient commitment at the time of discharge. 03/06 -The patient has improved in that he is more reality based at this point. He continues to harbor fixed, systematized delusions, but is generally able to focus on reality based topics. -Although the patient tells me that he does not feel that aripiprazole has been effective, he is able to accept my opinion in the opinion of the staff that he has improved in response to aripiprazole. -The patient's main objection to aripiprazole oral solution is that he does n ot like the way it tastes, and within this context, he tells us that he is willing to accept Abilify Maintenaand requests that it be injected into his buttock. Abilify Maintena 300 mg IM ordered, and oral Abilify discontinued. We will resume oral Abilify if the patient subsequently changes his mind and refuses the injection. 03/07 resuming Abilify oral given his refusal of FARAH form of Abilify 03/08 is taking Abilify po form but refusing Abilify Maintena form. advise close monitoring for potential of checking given pt's tendency to not want to take medications. 03/09 -The patient is flatly refusing to take aripiprazole in the form of Abilify Maintena. He is also been hesitant to take oral Abilify, but has been doing so. -The patient's lack of cooperation is thought possibly to be related to an un-expressed desire to not be discharged back to the community. He told me today that he left his meeting with his community providers after a few seconds because "just the side of them made me extremely anxious. My pulse elevated to 140." Later, he told me that he was still anxious about it and his pulse was "still around 130." The patient allowed me to take his pulse, and it was approximately 76. At that point he said, "did I say pulse? I meant systolic blood pressure." And when I pointed out that his systolic blood pressure of 130 is not considered to be a particular concern, he said "I mean diastolic." -Our hope had been that the patient would agree to accept a Depo form of medication. He was refusing Haldol Decanoate because of various side effects. Risperidone constant was ruled out as a first-line Depo medication because of the frequency of administration (the patient tends to get into power struggles over medications) and because he says that he is sensitive to "big needles." Invega would be an option, but currently the patient is being so uncooperative that our concern would be that he would cheek the oral tablets that we would have to give him first. Accordingly, the new strategy will be to discontinue Abilify, and resume olanzapine with olanzapine IM over objection if necessary. We will begin the olanzapine Zydis 20 mg at bedtime 03/10 -The patient took the prescribed dose of olanzapine Zydis 20 mg at bedtime last night. Today, he tells me that it "did not help at all." However, staff report that he has been somewhat more agreeable, more pleasant, and less paranoid today. -As he has with other providers, today he told me that I should have given him olanzapine 5 mg "to start", and I explained that he was already on olanzapine 20 mg when he came into the hospital and we know that he is able to tolerate that dose. He tells me that he did, in fact tolerate the dose and is not aware of any side effects, but, somewhat illogically, insisted that the dose was "too high for a starting dose." 03/11 - Continue current medication regimen at this time - olanzapine 20mg daily - Encourage participation in the milieu and in group programming as tolerated 03/12 -Continue current medication regimen. The patient's condition has not yet improved. -The patient does participate in select groups, but often tends to be disruptive. 03/13 -Today, the patient seems to be somewhat more cooperative and less frankly delusional. It was possible to engage in a mostly reality based conversation for 5 or 10 minutes at a time. Also, although he was unhappy with me when I refused to provide him with a dose of Valium for anxiety, he was able to remain pleasant and calm at this time, did not storm from the room." 03/14 and 03/15 -no change in medication will work on therapeutic alliance given patient is not participating 03/16 -304 involuntary commitment granted. -Patient remains completely uncooperative with treatment, refused his Zyprexa Zydis last evening, but then ultimately took it before he received the injection. I have a high suspicion for cheeking of antipsychotic medication, and we will continue to be vigilant with mouth checks, and work towards a long- acting injectable. 03/17 -Patient has been on Zyprexa 20 mg at bedtime for 1 week, with limited response. He is refusing to discuss other medication options. Per records, he has been prescribed up to 30 mg olanzapine in the past, so will increase his dose to this previously tolerated dose, as it is 1 of the few medications he has been willing to take. Continue IM backup for refusal, and Zyprexa Zydis formulation to decrease risk of cheeking. He is not compliant with mouth checks, but have asked staff to try to observe him for 10 minutes after taking the Zydis to ensure he is not spitting it out before it dissolves. 03/18 -Continue Zyprexa Zydis 30 mg at bedtime with IM backup. Consider switch to a different medication (?oral paliperidone with IM backup) if irritability and agitation continues. He has tried virtually every atypical antipsychotic and reports none of them were effective (although some trials were short due to nonadherence) and has a history of dystonia on haloperidol. Clozapine would be a reasonable choice, but he has been unwilling to even discuss medication options. -Consider some component of cognitive decline which could be contributing to his worsening presentation and will need to be monitored and worked up further once he is more psychiatrically stable. -Refer to [facility] in the event that he does not improve and long-term inpatient treatment is needed. 03/19 - [facility] 03/20 - Continue current medication regimen; patient refused EKG and CXR yesterday - refused again today - Continue attempts to gather information to make a referral to [facility] 03/23 - [facility]ceed [facility] - patient has refused EKG and CXR for multiple attempts. We will send most recent tests available - Continue current medication regimen at this time 03/24 -Attempted to hold diversion meeting with his outpatient [facility], usp director, and the [facility]; patient refused to attend or participate in the meeting. 03/25 - 03/26 - Continue treatment plan as above - no change in patient's condition and he remains unwilling to participate meaningfully in treatment - Continue with [facility] referral 03/27 -The patient has been informed that the plan at this point is to transfer him to [facility] for long-term inpatient psychiatric treatment, given his refusal to adhere with treatment and his associated behaviors in the community when not adherent with psychiatric treatment. -The patient continues to refuse mouth checks after given dosages of Zyprexa Zydis, and there is some question regarding whether he is actually ingesting this medication. He also would not cooperate with laboratory testing. -There has been a question regarding the patient's cognitive functions, and prior to admission he had been taking Aricept. When he does cooperate with this, I have not seen evidence of any substantial cognitive impairment. He may have mild cognitive impairment, but does not fully cooperate with formal cognitive assessment. He easily recalls the names of his providers, the names of the medications he is taking, the names of the various infectious agents that he believes are causing some of his psychiatric symptoms, the names of certain chemicals that he believes will rid him of the reference to infections, and is able to discuss current events such as recent news items. His assertion that he wants to return to his apartment in the community seems belied by his steadfast refusal to cooperate with those interventions I would make it possible for him to return, and there is some suspicion that although the patient remains floridly psychotic he may also be intentionally sabotaging discharge. 03/28 - 03/30 -There is been no changeover operator the past 2 weeks, and long-term inpatient treatment at the [facility] is indicated. 03/31 - Continue current medication regimen - Pt briefly verbalized willingness for FARAH, but was not agreeable to medication adjustments to allow for this to be possible - If he should change his mind; recommendation is for trial of Invega orally to establish tolerability, then consideration for Invega Sustenna - unwilling for this today 04/01 - 04/03 - Continue current medication regimen - Continues to refuse FARAH, will continue discussion daily as this is the reported preference of his CRR 04/04 -Questionable positive PPD measuring 13 mm but history of confinement places him at higher risk. Patient refused chest x-ray today but we will reapproach. No active symptoms of infection. Order for sputum culture and smear today for confirmation. 04/05 -PPD now appears negative. Would suggest follow through with sputum smear and culture for confirmation as previously ordered -Continue treatment plan as above 04/06 - PPD reportedly negative, patient unable to follow-up with sputum smear - therefore discontinued - Continue medication regimen as above - unwilling to discuss conversion to an FARAH - Meeting today with representation from [facility] to discuss discharge planning 04/07 - Continue medication regimen as above - remains unwilling to discuss changes - Additional meeting with CRR and CM scheduled for next week - We have been regularly assessing patient's condition and appropriateness to go outside since his 30-day treatment plan review. As patient continues to be unwilling to participate in a meaningful conversation with providers regarding his condition, we continue to be unable to determine if he is appropriate to be taken off the unit - therefore will await ability to discuss the topic in a meaningful way prior to making this determination. Will continue regular evaluation. 04/08 - 04/12 - Continue current medication regimen, as patient unwilling to discuss changes - Attempted again to determine if appropriate to go outside, patient unwilling to participate in conversation despite being told the goal of allowing him to go outside - Meeting with CM and CRR director scheduled for 04/13 at 1030 04/13 - Continue Zyprexa 30mg daily - unwilling to engage in conversation to discuss changes - Remains unwilling to engage in conversation to determine if he is appropriate to go outside, he has been made aware this is a possibility for him - Meeting for attempted diversion resulted in decision to no longer hold patient's CRR bed, [facility] admission is supported based on little to no improvement since admission and limited willingness to engage in conversations regarding medication adjustments - We have been asked to attempt to get a QuantiFERON-TB Gold Plus test, despite negative PPD reading within acceptable timeframe - pt unwilling to engage in conversation to obtain consent, further indicating why long-term inpatient psychiatric hospitalization is necessary. Will continue to attempt to gain consent for this testing to be completed 04/15 -The patient is slightly more communicative today and that he does answer at least one question which was whether he would be in agreement if we offered him a drug holiday from olanzapine. His response was in the affirmative.. He also said "thank you." -The patient continues to appear suspicious and he clearly is angry at and unwilling to cooperate with staff. He is particularly bumptious with individuals who he sees as not fully trained and fully qualified. -The plan remains transfer to the [facility] for long-term psychiatric care. Our hope remains that we will be able to divert the patient from the [facility], but the patient, as noted above, remains uncommunicative and resistant. Perhaps contributing to the patient's obvious anger and distress is the fact that he has learned this week that his residential program is unwilling to allow him to return and has stopped holding his bed for other individuals. 04/16 - Continue current treatment plan, which includes holiday from olanzapine as a rapport building attempt, and due to concerns that he is more irritable and resistant to treatment - which is obviously not beneficial for his overall condition. - Attempted to communicate with the patient today via written/printed text - will add addendum to this note if patient was willing to complete the sheet and respond to questions 04/21 -Patient remains uncooperative and unwilling to participate in interviews, but has been out of his room more and attending some groups. He remains unwilling to discuss treatment options, including antipsychotic medication. 04/22 - Patient remains unwilling for medications, but is interacting with peers appropriately and attending groups. Will try discontinuing private room and placing him with a roommate, is perhaps increased socialization will be therapeutic for him. 04/23 -no change, patient still unwilling for medications(other than marijuana and benzos) 04/24 -The patient remains angry, suspicious, and largely uncommunicative. He spoke briefly with the attending psychiatrist today in order to request privileg es to go outdoors with staff, and was able to cooperate with a fresh air break, but subsequently was angry, bumptious, and willing to cooperate with assessments. 04/25 - Valium 5mg dose yesterday appeared to lead to some disinhibited verbally agitated behavior, with the Valium dose being discontinued following that one dose. Pt is fixated on Valium and on temazepam. refusal to take other medicati ons with. Handling a roommate decently currently. Pt refusing to attend groups. Limited engagement with peers and staff occurring. no change to plan today 04/26 no change to plan today 04/27 -The patient cooperated with an interview today after several weeks of flatly refusing, sometimes rudely refusing to speak to providers. Today, the patient not voiced any delusional material and was able to specifically answer questions regarding perceptual disturbances. 04/28 -no change. 04/29 -start ziprasidone 20 mg twice daily with meals. Reviewed risks, benefits and common side effects including sedation and the need to take with food. 04/30 maintained ziprasidone at current dose today given pt's tendency to refuse medications mikey if notice any s/e, considering raising dose tomorrow 05/01 -Based on the patient's behavior today there seems to be no evidence that the patient is enjoying any particular benefit from ziprasidone. To the contrary, he may have become more bumptious and withdrawn. My recommendation is that we continue to observe him on ziprasidone 20 mg twice a day before increasing his dose further, possibly over the weekend. 05/02 -continue current medication and consider dose increase next week. It is likely that it will take weeks to show benefit from antipsychotic medication given the severity and chronicity of his symptoms, and his history of treatment resistance. He would be a good candidate for clozapine, but has never been willing to consider it. 05/03 -increase ziprasidone to 40 mg twice daily with food. Continue to encourage group attendance. 05/04 - Continue recently increased dose of ziprasidone 40mg BID with food 05/05 - Continue as above; limited change in presentation at this time 05/06 - Pt agreeable to titrating ziprasidone to 60mg BID, starting with this evening's dose. - Is superficially cooperative with conversation, but remains resistant to unit programming and more in-depth interactions with staff - Continues to be unable/unwilling to discuss status of delusional beliefs; however, appear to be ongoing as patient has reported that he is to be discharge, that there is a court order for him to leave, and that he has an apartment secured to move into - despite not having contact with individuals other than his residential case manager 05/07 - Continue as above, limited change in presentation 05/08 - Continue as above, consider need for further titration of ziprasidone - Limited change in presentation, but has been superficially pleasant 05/09 - continue as above, considering potential to further titrate ziprasidone 60mg bid with meals, as pt was more willing to engage conventional underwriter even more then prior times (last seen by this conventional underwriter about 9 days ago) will maintain as is for now but considering raising to 80mg bid, 05/10 continue plan unchanged 05/11 - Continue ziprasidone at 60mg BID - unwilling to engage in discussion regarding further titration - Would suggest titration to 80mg BID, especially as he has verbalized ongoing delusional beliefs - Continue to engage patient in discussion regarding possible diversion plan; reach out to the [facility] to discuss options and re-evaluate condition 05/12 - Continue as above, patient again unwilling to engage in conversation long enough to discuss medication titration - Consider titration to 80mg BID when able to discuss further, ongoing reported delusions that he is "not sick" and "does not have schizophrenia" 05/13 - Continue as above - patient more agreeable to conversation today, actually meeting with this provider in the office - Ongoing delusional belief that he does not have a diagnosis of schizophrenia, but behaviors not likely to be harmful to patient in the outpatient setting if he is met with adequate supports - Will attempt to schedule meeting to involve [facility] in discussion of possible diversion plan 05/14 - Continue current mediation regimen - Plan is for meeting with case management and county representatives 05/15 to consider diversion planning - Still no word on anticipated bed date from [facility] 05/15 - Continue current medication regimen - Meeting scheduled today at 1200 to discuss possible diversion planning versus attempt to expedite [facility] transfer - No estimated bed date provided 05/16 -Possible diversion to [facility] with further planning to occur on Saturday -Continue medication regimen unchanged 05/17 -Continue treatment plan unchanged (2) Substance abuse: 02/25 - Pt has reported history of substance abuse, and recommendation has consistently been for avoidance of substances with significant abuse potential. - PDMP queried - most recent prescriptions below - lorazepam 0.5mg #60 tabs for 30 day supply - Dr. Alves - filled 02/12/2019 - alprazolam 0.5mg #90 tabs for 30 day supply - Dr. Lopez - filled 01/16/2019 - temazepam 30mg #30 caps for 30 day supply - Dr. Lopez - filled 01/16/2019 - Will continue lorazepam 0.5mg BID prn on admission, as only medication that is seemingly active - toxicology screen is negative for benzodiazepines, which questions if he has been taking the medication appropriately - Ideally will taper and discontinue the lorazepam, as recommendation remains that substances with abuse potential be avoided 02/26 -The patient's outpatient providers, during a meeting this morning, report that the patient tends to successfully convince physicians to prescribe benzodiazepines for him and that, in the past, he has abused him to the degree that he is practically obtunded. 02/27 -A repeat check of the PDMP reveals that the patient is consistently being prescribed lorazepam 0.5 mg twice daily (number 60/month) by a Dr. Brent Alves. He is also being prescribed alprazolam 0.[address] mg [address] Jeff Lopez, with the most recent previous prescription of alprazolam being on 01/16/[address] Lopez also prescribed temazepam 30 mg capsules #30 on 01/16/2019. According to his residential providers, no temazepam capsules were found among the patient's belongings. His most recent prescription for lorazepam 0.5 mg tablets was filled on 02/12/2019. 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 In the past, he reportedly has used clonazepam and temazepam. -I advised the patient that because of his history of misuse of benzodiazepines we would not be prescribing benzodiazepines during his hospital stay. An as needed order for lorazepam has not been used during hospital stay, and I discontinued the order today. 03/02 - Will need to coordinate care with his PCP and outpatient psychiatrist prior to discharge regarding the above. 03/04 - Charge nurse spoke with the above offices regarding concern for continued benzodiazepine prescriptions - Records will be faxed to their offices on discharge, as all benzodiazepines were discontinued during this hospitalization 03/06 -The patient did not request benzodiazepines and did not complain of anxiety today. I suggested to him that perhaps Abilify is also helping with anxiety in his case, and he responded by saying "perhaps." 03/09 -Today, the patient is insisting that what he needs is "benzodiazepines," and explains that the reason he "needs" benzodiazepines is that he has "benzodiazepine receptors," and that he is the only medications that work. He is unable to process warnings about the risks of benzodiazepines in the elderly, including increased risk of falls and mortality. Clearly, the patient is seeking benzodiazepines and has no insight into the associated risks. He also insists that he has never had trouble with benzodiazepines in the past, although there is well-documented of this. 03/10 -Today, the patient repeated his insistence that he needs benzodiazepines and that benzodiazepines are the only medications that work because he has "benzodiazepine receptors." After being told that everyone has central nervous system receptors to which benzodiazepines may attach, he replied, "That may be, but some of people need to have benzodiazepines forearm benzodiazepine receptors. 03/12 -Continues to request Benzodiazepines. 03/13 -Requests Valium for his "benzodiazepines receptors." 03/27 -Refuses to cooperate with assessment today, but has recently told staff that he needs "either Valium or Ativan." -The patient apparently has no working insight into his history of abuse of prescription medications (benzodiazepines). 04/15 -The patient has not reference to request for benzodiazepines recently. Ho wever, the context is that he has not communicated much of anything directly, a other than the occasional need for self-care items. 04/24 -Today, the patient repeats his request for benzodiazepines, and insists that he is "supposed" to be taking diazepam 10 mg 3 times a day and temazepam for sleep every night. 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 Unfortunately, the exact opposite seems to have occurred. Not only was the patient was uncooperative subsequent to a dose of Valium, he seems to have been disinhibited by it and shouting "get out" or "get away" several times when approached by staff 04/25 - pt focused on seeking temazepam, or Valium 04/27 -The patient does have a history of substance dependence. However, the current plan and expected disposition is for the patient to be transferred to an extended care inpatient psychiatric unit where abuse of prescribed medications is unlikely to occur. Today, the patient calmly requests temazepam and says that he has tried a number of different sleeping pills, but "that is the one that works." The patient is also able to clearly say that he understands that temazepam is physically habituating that there are associated risks associated with temazepam including, but not limited to, a risk of falls, accidents, confusion, and depression. He tells us that at prescribed dosages he has not had any of these problems in the past. -Today, I agreed to a trial of temazepam 15 mg at bedtime, a dose that the patient says has been effective in the past. 04/30 close monitoring of temazepam given above, so far not taken 05/01 -After persistently insisting that he had to have temazepam in order to sleep and that nursing staff reports that he is sleeping through the night are wrong because he tends to rest with his eyes closed, the patient has not ask for temazepam and has not been given temazepam since it was ordered a week ago. The patient declined to explain why he has not ask for it, and refuses to answer questions today as to whether he is sleeping well without. In fact, when asked to explain why he had not taken any after insisting on having a prescribed, he shouted "get the hell out!!." Perhaps the patient has forgotten that it was ordered, but he seemed to remember the day after it was ordered and ask for not asked for it since. Our thought is that he may have somehow incorporated the order for temazepam into his delusional when belief system, based on his rage when asked to explain why he hasn't asked for it. (3) Hypertension: 02/25 - Continue home dose of clonidine 0.1mg qHS 03/01 Watch mildly elevated blood pressures as patient has been refusing clonidine 03/03 - BP normal past two days, and low today 03/10 -The patient's blood pressure today was 136/73. His pulse was 71 03/14 - elevated BP it is not urgent but will need monitored. 03/15 - BP WNL 03/26 - BP continues to be WNL 04/02 - BP remains within normal limits; continue daily vitals per standard admission order set - Will consider acute phase of this problem resolved at this time Risk Factors Assessment Male: Yes : Yes Do You Have Access To A Gun?: No Health Problems: Yes Mental Health Diagnoses: Yes Substance Use Disorders: Yes Protective Factors Assessment [employer] Beliefs: No : No Responsible for Young Children: No Employed: No Stable Relationships: No Supportive Family: No Good Rapport with Provider: No Absence of Any Risk Factors Above: No Interval History Identifying Information SCOTT ROBERTO is a 74-year-old M who currently lives at a [facility] in [place], has a history of schizophrenia, and is known to our unit from several previous admissions, most recently in 09/2016. He was admitted on 02/24/19 16:40 on a 302 involuntary commitment for exacerbation of schizophrenia and heightened paranoia resulting in belief he needed to hide in a dumpster to seek refuge from impending bombings. He was found by [facility] staff and brought to the ED by police, and is on a 304 involuntary commitment as of 03/16/19. He has been referred to [facility] for fci treatment. Chief Complaint "Not too bad". Review of Systems Sleep Information Total Hours of Sleep: 10 Sleep Comments: pt appeared to sleep 3 hrs during evening shift. pt on q-15 minute checks Meal Information Percent Meal Consumed - Breakfast: 100 Percent Meal Consumed - Lunch: 100 Percent Meal Consumed - Dinner: 100 Nutrition Comment: per meal record Subjective Subjective Patient was seen & assessed and interval progress reviewed with treatment team. no acute events overnight. Patient has been requesting more frequent Tylenol when necessary. When queried about this today he states that he feels tense because of the noise in his ears and is testing to see if his body responds positively to the Tylenol. He denies that his symptoms are any worse. Mood "not too bad." He denies any other concerns this morning. Physical Exam Psychiatric Orientation: alert and cooperative Apperance: appropriately dressed and appropriately groomed Eye Contact: good eye contact Motor Behavior: steady gait and station Speech: normal rate/rhythm/volume of speech Affect: euthymic affect Mood: no depressed mood Thought Process: goal directed thought process Thought Content: + delusions Suicidal Thoughts: denies suicidal thoughts Homicidal Thoughts: denies homicidal thoughts Insight: + limited insight Judgement: + limited judgement Vital Signs (Past 24 Hours) Last Vital Signs Temp 36.6 C 05/17/19 06:56 Pulse 61 05/17/19 06:57 Resp 18 05/17/19 06:56 BP 98/59 L 05/17/19 06:57 Pulse Ox 96 02/24/19 08:10 Results & Data Current Inpatient Medications Current Inpatient Medications: Current Inpatient Medications Acetaminophen (Tylenol) 650 mg PO Q4H PRN PRN Reason: Headache or Minor Fever Stop: 06/15/19 20:17 Last Admin: 05/17/19 08:15 Dose: 650 mg Documented by: Al Hydrox/Mg Hydrox/Simethicone (Maalox) 30 ml PO Q4H PRN PRN Reason: GI Upset Stop: 06/15/19 20:43 Benztropine Mesylate (Cogentin) 0.5 mg PO BID PRN PRN Reason: dystonia Stop: 06/15/19 20:44 Bismuth Subsalicylate (Kaopectate) 15 ml PO PRN PRN PRN Reason: Loose Stool Stop: 06/15/19 20:44 Clonidine HCl (Catapres) 0.1 mg PO HS MAG Stop: 05/23/19 21:59 Last Admin: 05/16/19 20:59 Dose: 0.1 mg Documented by: Cyanocobalamin (Vitamin B-12) 500 mcg PO DAILY MAG Stop: 05/23/19 08:59 Last Admin: 05/17/19 08:09 Dose: 500 mcg Documented by: Hydroxyzine HCl (Vistaril) 25 mg PO Q4H PRN PRN Reason: Anxiety Stop: 05/23/19 08:14 Hydroxyzine HCl (Vistaril) 50 mg PO HSZ PRN PRN Reason: Insomnia Stop: 06/15/19 20:45 Magnesium Hydroxide (Milk Of Magnesia) 30 ml PO DAILY PRN PRN Reason: Heartburn Stop: 06/15/19 20:45 Magnesium Oxide (Mag-Ox) 400 mg PO DAILY MAG Stop: 05/23/19 08:59 Last Admin: 05/17/19 08:09 Dose: 400 mg Documented by: Miscellaneous (Remove Nicoderm Patch) 1 ea N/A HS MAG Stop: 05/23/19 21:59 Last Admin: 05/16/19 20:44 Dose: Not Given Documented by: Multivitamins (Multivitamin Tab) 1 tab PO DAILY MAG Stop: 05/23/19 08:59 Last Admin: 05/17/19 08:09 Dose: 1 tab Documented by: Nicotine (Nicoderm Cq) 14 mg TD QAM MAG Stop: 05/23/19 08:59 Last Admin: 05/17/19 08:10 Dose: Not Given Documented by: Olanzapine (Zyprexa) 10 mg IM HS PRN PRN Reason: Undecided Stop: 05/23/19 08:19 Pyridoxine HCl (Vitamin B-6) 100 mg PO DAILY MAG Stop: 05/23/19 08:59 Last Admin: 05/17/19 08:09 Dose: 100 mg Documented by: Sodium Chloride ([place] Nasal) 1 - 2 sprays NA PRN PRN PRN Reason: Nasal Dryness/Congestion Stop: 05/23/19 08:19 Ziprasidone (Geodon) 60 mg PO BIDM MAG Stop: 06/05/19 17:44 Last Admin: 05/17/19 08:09 Dose: 60 mg Documented by: Mental Health & Subst Abuse Tx Psychiatrist Name of Psychiatrist: [facility] - Dr. Alves Psychiatrist's Psychiatric Appointment Comment: [id number], [place] [address] Therapist Name of Therapist: Denies Service Rig Operator Name of Service Rig Operator: Shruti Lopez Phone Number for Service Rig Operator: Case Management Appointment Comment: [phone], [place] [address] Post Discharge Appointments Primary Care Physician Name Of Family Doctor: [facility] - Dr. Lopez Primary Care Provider Appointment Comment: [address] [facility], [address], [place] [address] Contact Information Discharge Discharge Address: [address] [place] [address], [place] [address] CPT Code CPT Code 75003 (1) Schizophrenia Schizophrenia type: paranoid schizophrenia Qualified Code(s): F20.0 - Paranoid schizophrenia (2) Hypertension Hypertension type: essential hypertension Qualified Code(s): I10 - Essential (primary) hypertension
[2019-05-17] MEDS: cloNIDine HCL 0.1 MG TAB PO SCH (20:56)
[2019-05-18] MEDS: ACETAMINOPHEN 325 MG TAB PO PRN ×3 (06:41→17:16)
[2019-05-18] MEDS: ZIPRASIDONE HCL 20 MG CAP PO SCH ×2 (08:23→17:27)
[2019-05-18] MEDS: MAGNESIUM OXIDE 400 MG TAB PO SCH (08:24)
[2019-05-18] MEDS: CYANOCOBALAMIN 500 MCG TABLET (VITAMIN B-12) PO SCH (08:24)
[2019-05-18] MEDS: PYRIDOXINE HCL 50 MG TAB PO SCH (08:24)
[2019-05-18] MEDS: MULTIVITAMIN TAB PO SCH (08:24)
[2019-05-18] MEDS: NICOTINE 14 MG/24 HR PATCH TD SCH (08:24)
--- NOTE | 2019-05-18 10:05 | Psychiatric Progress Note ---
Date of Service May 18, 2019 Impression / Recommendations Impression Patient's diagnosis of schizophrenia is chronic, but he has been demonstrating improvements in condition in the past few weeks. Pt has remained compliant with ziprasidone 60mg BID, and has been pleasant in interactions with staff. He has been attending groups more frequently. Consideration at this time is for possible diversion to [facility] at discharge. Pt has signed JEFFREY and referral has been faxed. We still have not heard about an anticipated bed date from the [facility] referral. Given the chronicity and severity of the patient's condition, it is important that supervision be maintained after discharge to ensure medication compliance and appropriate behavior. Pt is at risk of harm to himself as well as others if he is discharged prior to ensuring an appropriate discharge plan is in place. (1) Schizophrenia: 02/25 - Continue home medication regimen - as refusing offerings of his antipsychotic, will likely require olanzapine IM (or alternative agent) over objection, given clear evidence of paranoia and delusional thought process - previously stabilized on this medication - Pt agreeable to taking all other medications, with exception of antipsychotic as mentioned above - Admitted to a locked inpatient behavioral health unit, on q15 minute safety checks - Encourage medication initiation/adjustments as indicated - Encourage participation in group and recreational therapies - Gather collateral information from outpatient providers and alf staff - Suggest family meeting to involve outpatient supports in safety planning - Reschedule appropriate aftercare appointments 02/26 -Patient indicates willingness to sign a release for the [facility] alf, will get collateral from their staff. -File for 303 involuntary commitment to be held tomorrow. -Recommend medications over objection, with an IM Zyprexa backup for refusal of oral medication. Involve outpatient treatment team to discuss ways to improve stability and compliance; consider long-acting injectable antipsychotic. -Order fasting labs for monitoring on an atypical antipsychotic once patient is more cooperative. 02/27 -The patient was retrained at his involuntary commitment hearing (303) this morning. -He has continuously and consistently refused psychiatric medications to date. However, today, when I explained that that a option that might become necessary in his case is medication over objection, and an intramuscular form, the patient said that he understood and that he would try medications that I prescribe. His initial preference would be olanzapine, but because olanzapine is not available in a long acting depot form, we would first like to try aripiprazole. He indicates that he is taken aripiprazole in the past and has been able to tolerate it, although he does not believe that it has been particularly helpful. -A trial dose of aripiprazole 15 mg by mouth, as a one-time dose, has been ordered and he assessed for efficacy. 02/28 -Appears to be tolerating initiation of Abilify so far. Remains delusional, paranoid. May consider further titration tomorrow -Aricept discontinued at patient's request on 02/27/2019. The medication has not been demonstrated to be efficacious for cognitive impairment associated with long-standing schizophrenia however we should be vigilant for slowing of mentation following discontinuation. 03/01 Patient fixated and irrational regarding access to clothing item as above today. Hospital environment becoming incorporated and delusions. Consider possibility that the aripiprazole is contributing to activation. We will increase to 20 mg tomorrow and also start Risperdal 1 mg p.o. twice daily as as needed. 03/02 - Continue with aripiprazole at 20mg daily, consider need for further titration - if tolerating and effective, eventual plan will be for conversion to Abilify Maintena - Pt has not yet utilized risperidone 03/03 - Increase aripiprazole to 25mg (equivalent to 30mg pill) and change to liquid formulation to decrease risk of cheeking/nonadherence, as patient does not believe he needs medication and had been noncompliant prior to hospitalization. - Fasting glucose and lipid profile ordered for tomorrow for monitoring on an atypical antipsychotic. - Private room due to psychosis, agitation, and inappropriate disrobing/sexual behavior. - Meeting with BCM and [facility] staff when patient able to tolerate. 03/04 - Continue aripiprazole 25mg liquid (30mg pill equivalent) and continue to observe for improvement in thought process/content - consider conversion to Maintena if effective, versus trial of another agent if improvement remains limited - Fasting labs reviewed - all values WNL - Continue medically necessary private room - Request meeting with CRR staff, in order to obtain details about patient's proximity to baseline 03/05 -Patient refusing liquid aripiprazole, but agrees to take the pill: Ordered 30 mg daily. -Schedule meeting with his case finisher, CRR and psych rehab staff. Consider involuntary outpatient commitment at the time of discharge. 7/19 -The patient has improved in that he is more reality based at this point. He continues to harbor fixed, systematized delusions, but is generally able to focus on reality based topics. -Although the patient tells me that he does not feel that aripiprazole has been effective, he is able to accept my opinion in the opinion of the staff that he has improved in response to aripiprazole. -The patient's main objection to aripiprazole oral solution is that he does not like the way it tastes, and within this context, he tells us that he is willing to accept Abilify Maintenaand requests that it be injected into his buttock. Abilify Maintena 300 mg IM ordered, and oral Abilify discontinued. We will resume oral Abilify if the patient subsequently changes his mind and refuses the injection. 03/07 resuming Abilify oral given his refusal of FARAH form of Abilify 03/08 is taking Abilify po form but refusing Abilify Maintena form. advise close monitoring for potential of checking given pt's tendency to not want to take medications. 03/09 -The patient is flatly refusing to take aripiprazole in the form of Abilify Maintena. He is also been hesitant to take oral Abilify, but has been doing so. -The patient's lack of cooperation is thought possibly to be related to an un-expressed desire to not be discharged back to the community. He told me today that he left his meeting with his community providers after a few seconds because "just the side of them made me extremely anxious. My pulse elevated to 140." Later, he told me that he was still anxious about it and his pulse was "still around 130." The patient allowed me to take his pulse, and it was approximately 76. At that point he said, "did I say pulse? I meant systolic blood pressure." And when I pointed out that his systolic blood pressure of 130 is not considered to be a particular concern, he said "I mean diastolic." -Our hope had been that the patient would agree to accept a Depo form of medication. He was refusing Haldol Decanoate because of various side effects. Risperidone constant was ruled out as a first-line Depo medication because of the frequency of administration (the patient tends to get into power struggles over medications) and because he says that he is sensitive to "big needles." I nvega would be an option, but currently the patient is being so uncooperative that our concern would be that he would cheek the oral tablets that we would have to give him first. Accordingly, the new strategy will be to discontinue Abilify, and resume olanzapine with olanzapine IM over objection if necessary. We will begin the olanzapine Zydis 20 mg at bedtime 03/10 -The patient took the prescribed dose of olanzapine Zydis 20 mg at bedtime last night. Today, he tells me that it "did not help at all." However, staff report that he has been somewhat more agreeable, more pleasant, and less p aranoid today. -As he has with other providers, today he told me that I should have given him olanzapine 5 mg "to start", and I explained that he was already on olanzapine 20 mg when he came into the hospital and we know that he is able to tolerate that dose. He tells me that he did, in fact tolerate the dose and is not aware of any side effects, but, somewhat illogically, insisted that the dose was "too high for a starting dose." 03/11 - Continue current medication regimen at this time - olanzapine 20mg daily - Encourage participation in the milieu and in group programming as tolerated 03/12 -Continue current medication regimen. The patient's condition has not yet improved. -The patient does participate in select groups, but often tends to be disruptive. 03/13 -Today, the patient seems to be somewhat more cooperative and less frankly delusional. It was possible to engage in a mostly reality based conversation for 5 or 10 minutes at a time. Also, although he was unhappy with me when I refused to provide him with a dose of Valium for anxiety, he was able to remain pleasant and calm at this time, did not storm from the room." 03/14 and 03/15 -no change in medication will work on therapeutic alliance given patient is not participating 03/16 -304 involuntary commitment granted. -Patient remains completely uncooperative with treatment, refused his Zyprexa Zydis last evening, but then ultimately took it before he received the injection. I have a high suspicion for cheeking of antipsychotic medication, and we will continue to be vigilant with mouth checks, and work towards a long- acting injectable. 03/17 -Patient has been on Zyprexa 20 mg at bedtime for 1 week, with limited response. He is refusing to discuss other medication options. Per records, he has been prescribed up to 30 mg olanzapine in the past, so will increase his dose to this previously tolerated dose, as it is 1 of the few medications he has been willing to take. Continue IM backup for refusal, and Zyprexa Zydis formulation to decrease risk of cheeking. He is not compliant with mouth checks, but have asked staff to try to observe him for 10 minutes after taking the Zydis to ensure he is not spitting it out before it dissolves. 03/18 -Continue Zyprexa Zydis 30 mg at bedtime with IM backup. Consider switch to a different medication (?oral paliperidone with IM backup) if irritability and agitation continues. He has tried virtually every atypical antipsychotic and reports none of them were effective (although some trials were short due to nonadherence) and has a history of dystonia on haloperidol. Clozapine would be a reasonable choice, but he has been unwilling to even discuss medication options. -Consider some component of cognitive decline which could be contributing to his worsening presentation and will need to be monitored and worked up further once he is more psychiatrically stable. -Refer to [facility] in the event that he does not improve and long-term inpatient treatment is needed. 03/19 - Proceed with [facility] referral. 03/20 - Continue current medication regimen; patient refused EKG and CXR yesterday - refused again today - Continue attempts to gather information to make a referral to [facility] 03/23 - Proceed with [facility] referral - patient has refused EKG and CXR for multiple attempts. We will send most recent tests available - Continue current medication regimen at this time 03/24 -Attempted to hold diversion meeting with his outpatient [facility], alf director, and the [facility]; patient refused to attend or participate in the meeting. 03/25 - 03/26 - Continue treatment plan as above - no change in patient's condition and he remains unwilling to participate meaningfully in treatment - Continue with [place] referral 03/27 -The patient has been informed that the plan at this point is to transfer him to [facility] for long-term inpatient psychiatric treatment, given his refusal to adhere with treatment and his associated behaviors in the community when not adherent with psychiatric treatment. -The patient continues to refuse mouth checks after given dosages of Zyprexa Zydis, and there is some question regarding whether he is actually ingesting this medication. He also would not cooperate with laboratory testing. -There has been a question regarding the patient's cognitive functions, and p rior to admission he had been taking Aricept. When he does cooperate with this, I have not seen evidence of any substantial cognitive impairment. He may have mild cognitive impairment, but does not fully cooperate with formal cognitive assessment. He easily recalls the names of his providers, the names of the medications he is taking, the names of the various infectious agents that he believes are causing some of his psychiatric symptoms, the names of certain chemicals that he believes will rid him of the reference to infections, and is able to discuss current events such as recent news items. His assertion that he wants to return to his apartment in the community seems belied by his steadfast refusal to cooperate with those interventions I would make it possible for him to return, and there is some suspicion that although the patient remains floridly psychotic he may also be intentionally sabotaging discharge. 03/28 - 03/30 -There is been no mash filter cloth changer the past 2 weeks, and long-term inpatient treatment at the [facility] is indicated. 03/31 - Continue current medication regimen - Pt briefly verbalized willingness for FARAH, but was not agreeable to medication adjustments to allow for this to be possible - If he should change his mind; recommendation is for trial of Invega orally to establish tolerability, then consideration for Invega Sustenna - unwilling for this today 04/01 - 04/03 - Continue current medication regimen - Continues to refuse FARAH, will continue discussion daily as this is the reported preference of his CRR 04/04 -Questionable positive PPD measuring 13 mm but history of confinement places him at higher risk. Patient refused chest x-ray today but we will reapproach. No active symptoms of infection. Order for sputum culture and smear today for confirmation. 04/05 -PPD now appears negative. Would suggest follow through with sputum smear and culture for confirmation as previously ordered -Continue treatment plan as above 04/06 - PPD reportedly negative, patient unable to follow-up with sputum smear - therefore discontinued - Continue medication regimen as above - unwilling to discuss conversion to an FARAH - Meeting today with representation from [facility] to discuss discharge planning 04/07 - Continue medication regimen as above - remains unwilling to discuss changes - Additional meeting with CRR and CM scheduled for next week - We have been regularly assessing patient's condition and appropriateness to go outside since his 30-day treatment plan review. As patient continues to be unwilling to participate in a meaningful conversation with providers regarding his condition, we continue to be unable to determine if he is appropriate to be taken off the unit - therefore will await ability to discuss the topic in a meaningful way prior to making this determination. Will continue regular evaluation. 04/08 - 04/12 - Continue current medication regimen, as patient unwilling to discuss changes - Attempted again to determine if appropriate to go outside, patient unwilling to participate in conversation despite being told the goal of allowing him to go outside - Meeting with CM and CRR director scheduled for 04/13 at 1030 04/13 - Continue Zyprexa 30mg daily - unwilling to engage in conversation to discuss changes - Remains unwilling to engage in conversation to determine if he is appropriate to go outside, he has been made aware this is a possibility for him - Meeting for attempted diversion resulted in decision to no longer hold patient's CRR bed, [place] admission is supported based on little to no improvement since admission and limited willingness to engage in conversations regarding medication adjustments - We have been asked to attempt to get a QuantiFERON-TB Gold Plus test, becca pite negative PPD reading within acceptable timeframe - pt unwilling to engage in conversation to obtain consent, further indicating why long-term inpatient psychiatric hospitalization is necessary. Will continue to attempt to gain consent for this testing to be completed 04/15 -The patient is slightly more communicative today and that he does answer at least one question which was whether he would be in agreement if we offered him a drug holiday from olanzapine. His response was in the affirmative.. He also said "thank you." -The patient continues to appear suspicious and he clearly is angry at and unwilling to cooperate with staff. He is particularly bumptious with individuals who he sees as not fully trained and fully qualified. -The plan remains transfer to the [facility] for long-term psychiatric care. Our hope remains that we will be able to divert the patient from the [facility], but the patient, as noted above, remains uncommunicative and resistant. Perhaps contributing to the patient's obvious anger and distress is the fact that he has learned this week that his residential program is unwilling to allow him to return and has stopped holding his bed for other individuals. 04/16 - Continue current treatment plan, which includes holiday from olanzapine as a rapport building attempt, and due to concerns that he is more irritable and resistant to treatment - which is obviously not beneficial for his overall condition. - Attempted to communicate with the patient today via written/printed text - will add addendum to this note if patient was willing to complete the sheet and respond to questions 04/21 -Patient remains uncooperative and unwilling to participate in interviews, but has been out of his room more and attending some groups. He remains u nwilling to discuss treatment options, including antipsychotic medication. 04/22 - Patient remains unwilling for medications, but is interacting with peers appropriately and attending groups. Will try discontinuing private room and placing him with a roommate, is perhaps increased socialization will be therapeutic for him. 04/23 -no change, patient still unwilling for medications(other than marijuana and benzos) 04/24 -The patient remains angry, suspicious, and largely uncommunicative. He spoke briefly with the attending psychiatrist today in order to request privileges to go outdoors with staff, and was able to cooperate with a fresh air break, but subsequently was angry, bumptious, and willing to cooperate with assessments. 04/25 - Valium 5mg dose yesterday appeared to lead to some disinhibited verbally agitated behavior, with the Valium dose being discontinued following that one dose. Pt is fixated on Valium and on temazepam. refusal to take other medications with. Handling a roommate decently currently. Pt refusing to attend groups. Limited engagement with peers and staff occurring. no change to plan today 04/26 no change to plan today 04/27 -The patient cooperated with an interview today after several weeks of flatly refusing, sometimes rudely refusing to speak to providers. Today, the patient not voiced any delusional material and was able to specifically answer questions regarding perceptual disturbances. 04/28 -no change. 04/29 -start ziprasidone 20 mg twice daily with meals. Reviewed risks, benefits and common side effects including sedation and the need to take with food. 04/30 maintained ziprasidone at current dose today given pt's tendency to refuse medications mikey if notice any s/e, considering raising dose tomorrow 05/01 -Based on the patient's behavior today there seems to be no evidence that the patient is enjoying any particular benefit from ziprasidone. To the contrary, he may have become more bumptious and withdrawn. My recommendation is that we continue to observe him on ziprasidone 20 mg twice a day before increasing his dose further, possibly over the weekend. 05/02 -continue current medication and consider dose increase next week. It is likely that it will take weeks to show benefit from antipsychotic medication given the severity and chronicity of his symptoms, and his history of treatment resistance. He would be a good candidate for clozapine, but has never been willing to consider it. 05/03 -increase ziprasidone to 40 mg twice daily with food. Continue to encourage group attendance. 05/04 - Continue recently increased dose of ziprasidone 40mg BID with food 05/05 - Continue as above; limited change in presentation at this time 05/06 - Pt agreeable to titrating ziprasidone to 60mg BID, starting with this evening's dose. - Is superficially cooperative with conversation, but remains resistant to unit programming and more in-depth interactions with staff - Continues to be unable/unwilling to discuss status of delusional beliefs; however, appear to be ongoing as patient has reported that he is to be discharge, that there is a court order for him to leave, and that he has an apartment secured to move into - despite not having contact with individuals other than his case finisher 05/07 - Continue as above, limited change in presentation 05/08 - Continue as above, consider need for further titration of ziprasidone - Limited change in presentation, but has been superficially pleasant 05/09 - continue as above, considering potential to further titrate ziprasidone 60mg bid with meals, as pt was more willing to engage hand sign writer even more then prior times (last seen by this hand sign writer about 9 days ago) will maintain as is for now but considering raising to 80mg bid, 05/10 continue plan unchanged 05/11 - Continue ziprasidone at 60mg BID - unwilling to engage in discussion regarding further titration - Would suggest titration to 80mg BID, especially as he has verbalized ongoing delusional beliefs - Continue to engage patient in discussion regarding possible diversion plan; reach out to the county to discuss options and re-evaluate condition 05/12 - Continue as above, patient again unwilling to engage in conversation long enough to discuss medication titration - Consider titration to 80mg BID when able to discuss further, ongoing reported delusions that he is "not sick" and "does not have schizophrenia" 05/13 - Continue as above - patient more agreeable to conversation today, actually meeting with this provider in the office - Ongoing delusional belief that he does not have a diagnosis of sc hizophrenia, but behaviors not likely to be harmful to patient in the outpatient setting if he is met with adequate supports - Will attempt to schedule meeting to involve county in discussion of poss ible diversion plan 05/14 - Continue current mediation regimen - Plan is for meeting with case management and county representatives 05/15 to consider diversion planning - Still no word on anticipated bed date from [facility] 05/15 - Continue current medication regimen - Meeting scheduled today at 1200 to discuss possible diversion planning versus attempt to expedite [place] transfer - No estimated bed date provided 05/16 -Possible diversion to [facility] with further planning to occur on Saturday -Continue medication regimen unchanged 05/17 -Continue treatment plan unchanged 05/18 - Continue current treatment plan - Referral faxed to [facility] housing consideration, patient remains agreeable (2) Substance abuse: 02/25 - Pt has reported history of substance abuse, and recommendation has consistently been for avoidance of substances with significant abuse potential. - PDMP queried - most recent prescriptions below - lorazepam 0.5mg #60 tabs for 30 day supply - Dr. Alves - filled 02/12/2019 - alprazolam 0.5mg #90 tabs for 30 day supply - Dr. Lopez - filled 01/16/2019 - temazepam 30mg #30 caps for 30 day supply - Dr. Lopez - filled 01/16/2019 - Will continue lorazepam 0.5mg BID prn on admission, as only medication that is seemingly active - toxicology screen is negative for benzodiazepines, which questions if he has been taking the medication appropriately - Ideally will taper and discontinue the lorazepam, as recommendation remains that substances with abuse potential be avoided 02/26 -The patient's outpatient providers, during a meeting this morning, report that the patient tends to successfully convince physicians to prescribe benzodiazepines for him and that, in the past, he has abused him to the degree that he is practically obtunded. 02/27 -A repeat check of the PDMP reveals that the patient is consistently being prescribed lorazepam 0.5 mg twice daily (number 60/month) by a Dr. Brent Alves. He is also being prescribed alprazolam 0.[address] mg [address] Jeff Lopez, with the most recent previous prescription of alprazolam being on 01/16/[address] Lopez also prescribed temazepam 30 mg capsules #30 on 01/16/2019. According to his residential providers, no temazepam capsules were found among the patient's belongings. His most recent prescription for lorazepam 0.5 mg tablets was filled on 02/12/2019. 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 In the past, he reportedly has used clonazepam and temazepam. -I advised the patient that because of his history of misuse of benzodiazepines we would not be prescribing benzodiazepines during his hospital stay. An as needed order for lorazepam has not been used during hospital stay, and I discontinued the order today. 03/02 - Will need to coordinate care with his PCP and outpatient psychiatrist prior to discharge regarding the above. 03/04 - Charge nurse spoke with the above offices regarding concern for continued benzodiazepine prescriptions - Records will be faxed to their offices on discharge, as all benzodiazepines were discontinued during this hospitalization 03/06 -The patient did not request benzodiazepines and did not complain of anxiety today. I suggested to him that perhaps Abilify is also helping with anxiety in his case, and he responded by saying "perhaps." 03/09 -Today, the patient is insisting that what he needs is "benzodiazepines," and explains that the reason he "needs" benzodiazepines is that he has "benzodiazepine receptors," and that he is the only medications that work. He is unable to process warnings about the risks of benzodiazepines in the elderly, including increased risk of falls and mortality. Clearly, the patient is seeking benzodiazepines and has no insight into the associated risks. He also insists that he has never had trouble with benzodiazepines in the past, although there is well-documented of this. 03/10 -Today, the patient repeated his insistence that he needs benzodiazepines and that benzodiazepines are the only medications that work because he has "benzodiazepine receptors." After being told that everyone has central nervous system receptors to which benzodiazepines may attach, he replied, "That may be, but some of people need to have benzodiazepines forearm benzodiazepine receptors. 03/12 -Continues to request Benzodiazepines. 03/13 -Requests Valium for his "benzodiazepines receptors." 03/27 -Refuses to cooperate with assessment today, but has recently told staff that he needs "either Valium or Ativan." -The patient apparently has no working insight into his history of abuse of prescription medications (benzodiazepines). 04/15 -The patient has not reference to request for benzodiazepines recently. However, the context is that he has not communicated much of anything directly, a other than the occasional need for self-care items. 04/24 -Today, the patient repeats his request for benzodiazepines, and insists that he is "supposed" to be taking diazepam 10 mg 3 times a day and temazepam for sleep every night. 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 Unfortunately, the exact opposite seems to have occurred. Not only was the patient was uncooperative subsequent to a dose of Valium, he seems to have been disinhibited by it and shouting "get out" or "get away" several times when approached by staff 04/25 - pt focused on seeking temazepam, or Valium 04/27 -The patient does have a history of substance dependence. However, the current plan and expected disposition is for the patient to be transferred to an extended care inpatient psychiatric unit where abuse of prescribed medications is unlikely to occur. Today, the patient calmly requests temazepam and says that he has tried a number of different sleeping pills, but "that is the one that works." The patient is also able to clearly say that he understands that temazepam is physically habituating that there are associated risks associated with temazepam including, but not limited to, a risk of falls, accidents, confusion, and depression. He tells us that at prescribed dosages he has not had any of these problems in the past. -Today, I agreed to a trial of temazepam 15 mg at bedtime, a dose that the patient says has been effective in the past. 04/30 close monitoring of temazepam given above, so far not taken 05/01 -After persistently insisting that he had to have temazepam in order to sleep and that nursing staff reports that he is sleeping through the night are wrong because he tends to rest with his eyes closed, the patient has not ask for temazepam and has not been given temazepam since it was ordered a week ago. The patient declined to explain why he has not ask for it, and refuses to answer questions today as to whether he is sleeping well without. In fact, when asked to explain why he had not taken any after insisting on having a prescribed, he shouted "get the hell out!!." Perhaps the patient has forgotten that it was ordered, but he seemed to remember the day after it was ordered and ask for not asked for it since. Our thought is that he may have somehow incorporated the order for temazepam into his delusional when belief system, based on his rage when asked to explain why he hasn't asked for it. (3) Hypertension: 02/25 - Continue home dose of clonidine 0.1mg qHS 03/01 Watch mildly elevated blood pressures as patient has been refusing clonidine 03/03 - BP normal past two days, and low today 03/10 -The patient's blood pressure today was 136/73. His pulse was 71 03/14 - elevated BP it is not urgent but will need monitored. 03/15 - BP WNL 8/8 - BP continues to be WNL 15 - BP remains within normal limits; continue daily vitals per standard admission order set - Will consider acute phase of this problem resolved at this time Risk Factors Assessment Male: Yes : Yes Do You Have Access To A Gun?: No Health Problems: Yes Mental Health Diagnoses: Yes Substance Use Disorders: Yes Protective Factors Assessment Voodoo Beliefs: No : No Responsible for Young Children: No Employed: No Stable Relationships: No Supportive Family: No Good Rapport with Provider: No Absence of Any Risk Factors Above: No Interval History Identifying Information SCOTT ROBERTO is a 74-year-old M who currently lives at a [facility] in [place], has a history of schizophrenia, and is known to our unit from several previous admissions, most recently in 09/2016. He was admitted on 02/24/19 16:40 on a 302 involuntary commitment for exacerbation of schizophrenia and heightened paranoia resulting in belief he needed to hide in a dumpster to seek refuge from impending bombings. He was found by [facility] staff and brought to the ED by police, and is on a 304 involuntary commitment as of 03/16/19. He has been referred to [facility] for assisted treatment. Chief Complaint "I'm ok." Review of Systems Notes Constitutional: denied Cardiovascular: denied Respiratory: denied Gastrointestinal: denied Neurological: denied Psychiatric: denies symptoms other than stated above Total of at least 10 systems reviewed, pertinent positives as above and in HPI. Sleep Information Total Hours of Sleep: 8 Sleep Comments: pt appeared to sleep 1.5 hrs during evening shift. pt on q-15 minute checks Meal Information Percent Meal Consumed - Breakfast: 100 Percent Meal Consumed - Lunch: 100 Percent Meal Consumed - Dinner: 100 Nutrition Comment: per meal record Subjective Subjective Patient was seen & assessed and interval progress reviewed with treatment team. Staff report the patient has continued to do well over the course of the weekend. Treatment team meeting from 05/15 was held and involved patient's case finisher and county representatives. It was reported that the [facility] would be in support of exploring potential [facility] bed availability. Anticipated bed date has yet to be received from [facility]. Pt was seen today to assess progress since admission. Pt states he is "ok" today. He states that he had a "fine" weekend and denies any significant events. Pt was asked to update this provider on the outcome of his treatment team meeting. He states that they have been looking into "that other CRR for options." When asked how the patient felt about the possibility of being discharged to the [facility], he reported it makes him "happy." Pt denies medication concerns when asked, but reported, "I liked the Zyprexa 5mg daily better." When asked to share what difference he noticed between the two medications, he was unable to provide any significant reasoning aside from "I just liked it more." Pt continues to deny suicidal or homicidal ideation, as well as A/V hallucinations. Pt denies other needs or concerns today. Physical Exam Vital Signs (Past 24 Hours) Last Vital Signs Temp 36.6 C 05/18/19 06:42 Pulse 78 05/18/19 06:43 Resp 18 05/18/19 06:42 BP 126/69 05/18/19 06:43 Pulse Ox 96 02/24/19 08:10 Results & Data Current Inpatient Medications Current Inpatient Medications: Current Inpatient Medications Acetaminophen (Tylenol) 650 mg PO Q4H PRN PRN Reason: Headache or Minor Fever Stop: 06/15/19 20:17 Last Admin: 05/18/19 06:41 Dose: 650 mg Documented by: Al Hydrox/Mg Hydrox/Simethicone (Maalox) 30 ml PO Q4H PRN PRN Reason: GI Upset Stop: 06/15/19 20:43 Benztropine Mesylate (Cogentin) 0.5 mg PO BID PRN PRN Reason: dystonia Stop: 06/15/19 20:44 Bismuth Subsalicylate (Kaopectate) 15 ml PO PRN PRN PRN Reason: Loose Stool Stop: 06/15/19 20:44 Clonidine HCl (Catapres) 0.1 mg PO HS [facility] Stop: 05/23/19 21:59 Last Admin: 05/17/19 20:56 Dose: Not Given Documented by: Cyanocobalamin (Vitamin B-12) 500 mcg PO DAILY MAG Stop: 05/23/19 08:59 Last Admin: 05/18/19 08:24 Dose: 500 mcg Documented by: Hydroxyzine HCl (Vistaril) 25 mg PO Q4H PRN PRN Reason: Anxiety Stop: 05/23/19 08:14 Hydroxyzine HCl (Vistaril) 50 mg PO HSZ PRN PRN Reason: Insomnia Stop: 06/15/19 20:45 Magnesium Hydroxide (Milk Of Magnesia) 30 ml PO DAILY PRN PRN Reason: Heartburn Stop: 06/15/19 20:45 Magnesium Oxide (Mag-Ox) 400 mg PO DAILY MAG Stop: 05/23/19 08:59 Last Admin: 05/18/19 08:24 Dose: 400 mg Documented by: Miscellaneous (Remove Nicoderm Patch) 1 ea N/A HS [facility] Stop: 05/23/19 21:59 Last Admin: 05/17/19 20:56 Dose: Not Given Documented by: Multivitamins (Multivitamin Tab) 1 tab PO DAILY MAG Stop: 05/23/19 08:59 Last Admin: 05/18/19 08:24 Dose: 1 tab Documented by: Nicotine (Nicoderm Cq) 14 mg TD QAM [facility] Stop: 05/23/19 08:59 Last Admin: 05/18/19 08:24 Dose: Not Given Documented by: Olanzapine (Zyprexa) 10 mg IM HS PRN PRN Reason: Undecided Stop: 05/23/19 08:19 Pyridoxine HCl (Vitamin B-6) 100 mg PO DAILY MAG Stop: 05/23/19 08:59 Last Admin: 05/18/19 08:24 Dose: 100 mg Documented by: Sodium Chloride ([place] Nasal) 1 - 2 sprays NA PRN PRN PRN Reason: Nasal Dryness/Congestion Stop: 05/23/19 08:19 Ziprasidone (Geodon) 60 mg PO BIDM MAG Stop: 06/05/19 17:44 Last Admin: 05/18/19 08:23 Dose: 60 mg Documented by: Mental Health & Subst Abuse Tx Psychiatrist Name of Psychiatrist: [facility] - Dr. Alves Psychiatrist's Psychiatric Appointment Comment: [address] [place] [address] [address], [place] [address] Therapist Name of Therapist: Sammy Vinyl Top Installer Name of Vinyl Top Installer: Shruti Lopez Phone Number for Vinyl Top Installer: Case Management Appointment Comment: [phone], [place] [address] Post Discharge Appointments Primary Care Physician Name Of Family Doctor: [facility] - Dr. Lopez Primary Care Provider Appointment Comment: [address] [facility], [address], [place] [address] Contact Information Discharge Discharge Address: [address] [place] [id number] CPT Code CPT Code 44149 (1) Schizophrenia Schizophrenia type: paranoid schizophrenia Qualified Code(s): F20.0 - Paranoid schizophrenia (2) Hypertension Hypertension type: essential hypertension Qualified Code(s): I10 - Essential (primary) hypertension
[2019-05-18] MEDS: cloNIDine HCL 0.1 MG TAB PO SCH (22:00)
[2019-05-19] MEDS: ACETAMINOPHEN 325 MG TAB PO PRN (06:54)
[2019-05-19 08:13] LABS: Appearance Urine Cloudy (Clear); Bilirubin Urine Negative (Negative); Blood Urine 3+ (Negative); Color Urine Amber; Glucose Urine UA Negative (Negative); Ketones Urine Trace (Negative); Leukocyte Esterase Urine 1+ (Negative); Nitrite Urine Negative (Negative); Protein Urine 3+ (Negative); Specific Gravity Urine 1.025 (1.000-1.030); Urobilinogen Urine Negative (Negative); pH Urine 6.5 (4.5-7.5)
[2019-05-19 08:35] LABS: Bacteria Urine 3+ (Negative); Hyaline Casts Urine 0-5 /lpf (0-5); RBC Urine >30 /hpf (0-4); WBC Urine >30 /hpf (0-5)
[2019-05-19] MEDS: ZIPRASIDONE HCL 20 MG CAP PO SCH ×2 (09:13→17:31)
[2019-05-19] MEDS: MULTIVITAMIN TAB PO SCH (09:13)
[2019-05-19] MEDS: NICOTINE 14 MG/24 HR PATCH TD SCH (09:13)
[2019-05-19] MEDS: PYRIDOXINE HCL 50 MG TAB PO SCH (09:13)
[2019-05-19] MEDS: CYANOCOBALAMIN 500 MCG TABLET (VITAMIN B-12) PO SCH (09:13)
[2019-05-19] MEDS: MAGNESIUM OXIDE 400 MG TAB PO SCH (09:13)
--- NOTE | 2019-05-19 13:33 | Psychiatric Progress Note ---
Date of Service May 19, 2019 Impression / Recommendations Impression Patient's diagnosis of schizophrenia is chronic, but he has been demonstrating improvements in condition in the past few weeks. Pt has remained compliant with ziprasidone 60mg BID, and has been pleasant in interactions with staff. He has been attending groups more frequently. Consideration at this time is for possible diversion to [facility] at discharge. Pt has signed JEFFREY and referral has been faxed. We still have not heard about an anticipated bed date from the [facility] referral. Given the chronicity and severity of the patient's condition, it is important that supervision be maintained after discharge to ensure medication compliance and appropriate behavior. Pt is at risk of harm to himself as well as others if he is discharged prior to ensuring an appropriate discharge plan is in place. (1) Schizophrenia: 02/25 - Continue home medication regimen - as refusing offerings of his antipsychotic, will likely require olanzapine IM (or alternative agent) over objection, given clear evidence of paranoia and delusional thought process - previously stabilized on this medication - Pt agreeable to taking all other medications, with exception of antipsychotic as mentioned above - Admitted to a locked inpatient behavioral health unit, on q15 minute safety checks - Encourage medication initiation/adjustments as indicated - Encourage participation in group and recreational therapies - Gather collateral information from outpatient providers and retirement staff - Suggest family meeting to involve outpatient supports in safety planning - Reschedule appropriate aftercare appointments 02/26 -Patient indicates willingness to sign a release for the [facility] retirement, will get collateral from their staff. -File for 303 involuntary commitment to be held tomorrow. -Recommend medications over objection, with an IM Zyprexa backup for refusal of oral medication. Involve outpatient treatment team to discuss ways to improve stability and compliance; consider long-acting injectable antipsychotic. -Order fasting labs for monitoring on an atypical antipsychotic once patient is more cooperative. 02/27 -The patient was retrained at his involuntary commitment hearing (303) this morning. -He has continuously and consistently refused psychiatric medications to date. However, today, when I explained that that a option that might become necessary in his case is medication over objection, and an intramuscular form, the patient said that he understood and that he would try medications that I prescribe. His initial preference would be olanzapine, but because olanzapine is not available in a long acting depot form, we would first like to try aripiprazole. He indicates that he is taken aripiprazole in the past and has been able to tolerate it, although he does not believe that it has been particularly helpful. -A trial dose of aripiprazole 15 mg by mouth, as a one-time dose, has been ordered and he assessed for efficacy. 02/28 -Appears to be tolerating initiation of Abilify so far. Remains delusional, paranoid. May consider further titration tomorrow -Aricept discontinued at patient's request on 02/27/2019. The medication has not been demonstrated to be efficacious for cognitive impairment associated with long-standing schizophrenia however we should be vigilant for slowing of mentation following discontinuation. 03/01 Patient fixated and irrational regarding access to clothing item as above today. Hospital environment becoming incorporated and delusions. Consider possibility that the aripiprazole is contributing to activation. We will increase to 20 mg tomorrow and also start Risperdal 1 mg p.o. twice daily as as needed. 03/02 - Continue with aripiprazole at 20mg daily, consider need for further t itration - if tolerating and effective, eventual plan will be for conversion to Abilify Maintena - Pt has not yet utilized risperidone 03/03 - Increase aripiprazole to 25mg (equivalent to 30mg pill) and change to liquid formulation to decrease risk of cheeking/nonadherence, as patient does not believe he needs medication and had been noncompliant prior to hospitalization. - Fasting glucose and lipid profile ordered for tomorrow for monitoring on an atypical antipsychotic. - Private room due to psychosis, agitation, and inappropriate disrobing/sexual behavior. - Meeting with [facility] and [facility] staff when patient able to tolerate. 03/04 - Continue aripiprazole 25mg liquid (30mg pill equivalent) and continue to observe for improvement in thought process/content - consider conversion to Maintena if effective, versus trial of another agent if improvement remains limited - Fasting labs reviewed - all values WNL - Continue medically necessary private room - Request meeting with [facility] staff, in order to obtain details about patient's proximity to baseline 03/05 -Patient refusing liquid aripiprazole, but agrees to take the pill: Ordered 30 mg daily. -Schedule meeting with his case advocate, CRR and psych rehab staff. Consider involuntary outpatient commitment at the time of discharge. 03/06 -The patient has improved in that he is more reality based at this point. He continues to harbor fixed, systematized delusions, but is generally able to focus on reality based topics. -Although the patient tells me that he does not feel that aripiprazole has been effective, he is able to accept my opinion in the opinion of the staff that he has improved in response to aripiprazole. -The patient's main objection to aripiprazole oral solution is that he does not like the way it tastes, and within this context, he tells us that he is willing to accept Abilify Maintenaand requests that it be injected into his buttock. Abilify Maintena 300 mg IM ordered, and oral Abilify discontinued. We will resume oral Abilify if the patient subsequently changes his mind and refuses the injection. 03/07 resuming Abilify oral given his refusal of FARAH form of Abilify 03/08 is taking Abilify po form but refusing Abilify Maintena form. advise close monitoring for potential of checking given pt's tendency to not want to take medications. 03/09 -The patient is flatly refusing to take aripiprazole in the form of Abilify Maintena. He is also been hesitant to take oral Abilify, but has been doing so. -The patient's lack of cooperation is thought possibly to be related to an un-expressed desire to not be discharged back to the community. He told me today that he left his meeting with his community providers after a few seconds because "just the side of them made me extremely anxious. My pulse elevated to 140." Later, he told me that he was still anxious about it and his pulse was "still around 130." The patient allowed me to take his pulse, and it was approximately 76. At that point he said, "did I say pulse? I meant systolic blood pressure." And when I pointed out that his systolic blood pressure of 130 is not considered to be a particular concern, he said "I mean diastolic." -Our hope had been that the patient would agree to accept a Depo form of medication. He was refusing Haldol Decanoate because of various side effects. Risperidone constant was ruled out as a first-line Depo medication because of the frequency of administration (the patient tends to get into power struggles over medications) and because he says that he is sensitive to "big needles." Invega would be an option, but currently the patient is being so uncooperative that our concern would be that he would cheek the oral tablets that we would have to give him first. Accordingly, the new strategy will be to discontinue Abilify, and resume olanzapine with olanzapine IM over objection if necessary. We will begin the olanzapine Zydis 20 mg at bedtime 03/10 -The patient took the prescribed dose of olanzapine Zydis 20 mg at bedtime last night. Today, he tells me that it "did not help at all." However, staff report that he has been somewhat more agreeable, more pleasant, and less para noid today. -As he has with other providers, today he told me that I should have given him olanzapine 5 mg "to start", and I explained that he was already on olanzapine 20 mg when he came into the hospital and we know that he is able to tolerate that dose. He tells me that he did, in fact tolerate the dose and is not aware of any side effects, but, somewhat illogically, insisted that the dose was "too high for a starting dose." 03/11 - Continue current medication regimen at this time - olanzapine 20mg daily - Encourage participation in the milieu and in group programming as tolerated 03/12 -Continue current medication regimen. The patient's condition has not yet improved. -The patient does participate in select groups, but often tends to be disruptive. 03/13 -Today, the patient seems to be somewhat more cooperative and less frankly delusional. It was possible to engage in a mostly reality based conversation for 5 or 10 minutes at a time. Also, although he was unhappy with me when I refused to provide him with a dose of Valium for anxiety, he was able to remain pleasant and calm at this time, did not storm from the room." 03/14 and 03/15 -no change in medication will work on therapeutic alliance given patient is not participating 03/16 -304 involuntary commitment granted. -Patient remains completely uncooperative with treatment, refused his Zyprexa Zydis last evening, but then ultimately took it before he received the injection. I have a high suspicion for cheeking of antipsychotic medication, and we will continue to be vigilant with mouth checks, and work towards a long- acting injectable. 03/17 -Patient has been on Zyprexa 20 mg at bedtime for 1 week, with limited response. He is refusing to discuss other medication options. Per records, he has been prescribed up to 30 mg olanzapine in the past, so will increase his dose to this previously tolerated dose, as it is 1 of the few medications he has been willing to take. Continue IM backup for refusal, and Zyprexa Zydis formulation to decrease risk of cheeking. He is not compliant with mouth checks, but have asked staff to try to observe him for 10 minutes after taking the Zydis to ensure he is not spitting it out before it dissolves. 03/18 -Continue Zyprexa Zydis 30 mg at bedtime with IM backup. Consider switch to a different medication (?oral paliperidone with IM backup) if irritability and agitation continues. He has tried virtually every atypical antipsychotic and reports none of them were effective (although some trials were short due to nonadherence) and has a history of dystonia on haloperidol. Clozapine would be a reasonable choice, but he has been unwilling to even discuss medication options. -Consider some component of cognitive decline which could be contributing to his worsening presentation and will need to be monitored and worked up further once he is more psychiatrically stable. -Refer to [facility] in the event that he does not improve and long-term inpatient treatment is needed. 03/19 - Proceed with [facility] referral. 03/20 - Continue current medication regimen; patient refused EKG and CXR yesterday - refused again today - Continue attempts to gather information to make a referral to [facility] 03/23 - Proceed with [facility] referral - patient has refused EKG and CXR for multiple attempts. We will send most recent tests available - Continue current medication regimen at this time 03/24 -Attempted to hold diversion meeting with his outpatient [facility], retirement director, and the [facility]; patient refused to attend or participate in the meeting. 03/25 - 03/26 - Continue treatment plan as above - no change in patient's condition and he remains unwilling to participate meaningfully in treatment - Continue with [facility] referral 03/27 -The patient has been informed that the plan at this point is to transfer him to [facility] for long-term inpatient psychiatric treatment, given his refusal to adhere with treatment and his associated behaviors in the community when not adherent with psychiatric treatment. -The patient continues to refuse mouth checks after given dosages of Zyprexa Zydis, and there is some question regarding whether he is actually ingesting this medication. He also would not cooperate with laboratory testing. -There has been a question regarding the patient's cognitive functions, and prior to admission he had been taking Aricept. When he does cooperate with this, I have not seen evidence of any substantial cognitive impairment. He may have mild cognitive impairment, but does not fully cooperate with formal cognitive assessment. He easily recalls the names of his providers, the names of the medications he is taking, the names of the various infectious agents that he believes are causing some of his psychiatric symptoms, the names of certain chemicals that he believes will rid him of the reference to infections, and is able to discuss current events such as recent news items. His assertion that he wants to return to his apartment in the community seems belied by his steadfast refusal to cooperate with those interventions I would make it possible for him to return, and there is some suspicion that although the patient remains floridly psychotic he may also be intentionally sabotaging discharge. 03/28 - 03/30 -There is been no exchange consultant the past 2 weeks, and long-term inpatient treatment at the [facility] is indicated. 03/31 - Continue current medication regimen - Pt briefly verbalized willingness for FARAH, but was not agreeable to medication adjustments to allow for this to be possible - If he should change his mind; recommendation is for trial of Invega orally to establish tolerability, then consideration for Invega Sustenna - unwilling for this today 04/01 - 04/03 - Continue current medication regimen - Continues to refuse FARAH, will continue discussion daily as this is the reported preference of his CRR 04/04 -Questionable positive PPD measuring 13 mm but history of confinement places him at higher risk. Patient refused chest x-ray today but we will reapproach. No active symptoms of infection. Order for sputum culture and smear today for confirmation. 04/05 -PPD now appears negative. Would suggest follow through with sputum smear and culture for confirmation as previously ordered -Continue treatment plan as above 04/06 - PPD reportedly negative, patient unable to follow-up with sputum smear - therefore discontinued - Continue medication regimen as above - unwilling to discuss conversion to an FARAH - Meeting today with representation from [facility] to discuss discharge planning 04/07 - Continue medication regimen as above - remains unwilling to discuss changes - Additional meeting with CRR and CM scheduled for next week - We have been regularly assessing patient's condition and appropriateness to go outside since his 30-day treatment plan review. As patient continues to be unwilling to participate in a meaningful conversation with providers regarding his condition, we continue to be unable to determine if he is appropriate to be taken off the unit - therefore will await ability to discuss the topic in a meaningful way prior to making this determination. Will continue regular evaluation. 04/08 - 04/12 - Continue current medication regimen, as patient unwilling to discuss changes - Attempted again to determine if appropriate to go outside, patient unwilling to participate in conversation despite being told the goal of allowing him to go outside - Meeting with CM and CRR director scheduled for 04/13 at 1030 04/13 - Continue Zyprexa 30mg daily - unwilling to engage in conversation to discuss changes - Remains unwilling to engage in conversation to determine if he is appropriate to go outside, he has been made aware this is a possibility for him - Meeting for attempted diversion resulted in decision to no longer hold patient's CR[facility] bed, [facility] admission is supported based on little to no improvement since admission and limited willingness to engage in conversations regarding medication adjustments - We have been asked to attempt to get a QuantiFERON-TB Gold Plus test, despite negative PPD reading within acceptable timeframe - pt unwilling to engage in conversation to obtain consent, further indicating why long-term inpatient psychiatric hospitalization is necessary. Will continue to attempt to gain consent for this testing to be completed 04/15 -The patient is slightly more communicative today and that he does answer at least one question which was whether he would be in agreement if we offered him a drug holiday from olanzapine. His response was in the affirmative.. He also said "thank you." -The patient continues to appear suspicious and he clearly is angry at and unwilling to cooperate with staff. He is particularly bumptious with individuals who he sees as not fully trained and fully qualified. -The plan remains transfer to the [facility] for long-term psychiatric care. Our hope remains that we will be able to divert the patient from the [facility], but the patient, as noted above, remains uncommunicative and resistant. Perhaps contributing to the patient's obvious anger and distress is the fact that he has learned this week that his residential program is unwilling to allow him to return and has stopped holding his bed for other individuals. 04/16 - Continue current treatment plan, which includes holiday from olanzapine as a rapport building attempt, and due to concerns that he is more irritable and resistant to treatment - which is obviously not beneficial for his overall condition. - Attempted to communicate with the patient today via written/printed text - will add addendum to this note if patient was willing to complete the sheet and respond to questions 04/21 -Patient remains uncooperative and unwilling to participate in interviews, but has been out of his room more and attending some groups. He remains unwi lling to discuss treatment options, including antipsychotic medication. 04/22 - Patient remains unwilling for medications, but is interacting with peers appropriately and attending groups. Will try discontinuing private room and placing him with a roommate, is perhaps increased socialization will be therapeutic for him. 04/23 -no change, patient still unwilling for medications(other than marijuana and benzos) 04/24 -The patient remains angry, suspicious, and largely uncommunicative. He spoke briefly with the attending psychiatrist today in order to request privileges to go outdoors with staff, and was able to cooperate with a fresh air break, but subsequently was angry, bumptious, and willing to cooperate with assessments. 04/25 - Valium 5mg dose yesterday appeared to lead to some disinhibited verbally agitated behavior, with the Valium dose being discontinued following that one dose. Pt is fixated on Valium and on temazepam. refusal to take other medications with. Handling a roommate decently currently. Pt refusing to attend groups. Limited engagement with peers and staff occurring. no change to plan today 04/26 no change to plan today 04/27 -The patient cooperated with an interview today after several weeks of flatly refusing, sometimes rudely refusing to speak to providers. Today, the patient not voiced any delusional material and was able to specifically answer questions regarding perceptual disturbances. 04/28 -no change. 04/29 -start ziprasidone 20 mg twice daily with meals. Reviewed risks, benefits and common side effects including sedation and the need to take with food. 9/12 maintained ziprasidone at current dose today given pt's tendency to refuse medications mikey if notice any s/e, considering raising dose tomorrow 05/01 -Based on the patient's behavior today there seems to be no evidence that the patient is enjoying any particular benefit from ziprasidone. To the contrary, he may have become more bumptious and withdrawn. My recommendation is that we continue to observe him on ziprasidone 20 mg twice a day before increasing his dose further, possibly over the weekend. 05/02 -continue current medication and consider dose increase next week. It is l ikely that it will take weeks to show benefit from antipsychotic medication given the severity and chronicity of his symptoms, and his history of treatment resistance. He would be a good candidate for clozapine, but has never been willing to consider it. 05/03 -increase ziprasidone to 40 mg twice daily with food. Continue to encourage group attendance. 05/04 - Continue recently increased dose of ziprasidone 40mg BID with food 05/05 - Continue as above; limited change in presentation at this time 05/06 - Pt agreeable to titrating ziprasidone to 60mg BID, starting with this evening's dose. - Is superficially cooperative with conversation, but remains resistant to unit programming and more in-depth interactions with staff - Continues to be unable/unwilling to discuss status of delusional beliefs; however, appear to be ongoing as patient has reported that he is to be discharge, that there is a court order for him to leave, and that he has an apartment secured to move into - despite not having contact with individuals other than his case advocate 05/07 - Continue as above, limited change in presentation 05/08 - Continue as above, consider need for further titration of ziprasidone - Limited change in presentation, but has been superficially pleasant 05/09 - continue as above, considering potential to further titrate ziprasidone 60mg bid with meals, as pt was more willing to engage specifications writer even more then prior times (last seen by this specifications writer about 9 days ago) will maintain as is for now but considering raising to 80mg bid, 05/10 continue plan unchanged 05/11 - Continue ziprasidone at 60mg BID - unwilling to engage in discussion regarding further titration - Would suggest titration to 80mg BID, especially as he has verbalized ongoing delusional beliefs - Continue to engage patient in discussion regarding possible diversion plan; reach out to the county to discuss options and re-evaluate condition 05/12 - Continue as above, patient again unwilling to engage in conversation long enough to discuss medication titration - Consider titration to 80mg BID when able to discuss further, ongoing reported delusions that he is "not sick" and "does not have schizophrenia" 05/13 - Continue as above - patient more agreeable to conversation today, actually meeting with this provider in the office - Ongoing delusional belief that he does not have a diagnosis of schiz ophrenia, but behaviors not likely to be harmful to patient in the outpatient setting if he is met with adequate supports - Will attempt to schedule meeting to involve county in discussion of possibl e diversion plan 05/14 - Continue current mediation regimen - Plan is for meeting with case management and county representatives 05/15 to consider diversion planning - Still no word on anticipated bed date from [facility] 05/15 - Continue current medication regimen - Meeting scheduled today at 1200 to discuss possible diversion planning versus attempt to expedite [facility] transfer - No estimated bed date provided 05/16 -Possible diversion to [facility] with further planning to occur on Saturday -Continue medication regimen unchanged 05/17 -Continue treatment plan unchanged 05/18 - 05/19 - Continue current treatment plan - Referral faxed to [facility] housing consideration, patient remains agreeable (2) Substance abuse: 02/25 - Pt has reported history of substance abuse, and recommendation has consistently been for avoidance of substances with significant abuse potential. - PDMP queried - most recent prescriptions below - lorazepam 0.5mg #60 tabs for 30 day supply - Dr. Alves - filled 02/12/2019 - alprazolam 0.5mg #90 tabs for 30 day supply - Dr. Lopez - filled 01/16/2019 - temazepam 30mg #30 caps for 30 day supply - Dr. Lopez - filled 01/16/2019 - Will continue lorazepam 0.5mg BID prn on admission, as only medication that is seemingly active - toxicology screen is negative for benzodiazepines, which questions if he has been taking the medication appropriately - Ideally will taper and discontinue the lorazepam, as recommendation remains that substances with abuse potential be avoided 02/26 -The patient's outpatient providers, during a meeting this morning, report that the patient tends to successfully convince physicians to prescribe benzodiazepines for him and that, in the past, he has abused him to the degree that he is practically obtunded. 02/27 -A repeat check of the PDMP reveals that the patient is consistently being prescribed lorazepam 0.5 mg twice daily (number 60/month) by a Dr. Brent Alves. He is also being prescribed alprazolam 0.[address] mg [address] Jeff Lopez, with the most recent previous prescription of alprazolam being on 01/16/[address] Lopez also prescribed temazepam 30 mg capsules #30 on 01/16/2019. According to his residential providers, no temazepam capsules were found among the patient's belongings. His most recent prescription for lorazepam 0.5 mg tablets was filled on 02/12/2019. 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 In the past, he reportedly has used clonazepam and temazepam. -I advised the patient that because of his history of misuse of benzodiazepines we would not be prescribing benzodiazepines during his hospital stay. An as needed order for lorazepam has not been used during hospital stay, and I discontinued the order today. 03/02 - Will need to coordinate care with his PCP and outpatient psychiatrist jonathan bernabe to discharge regarding the above. 03/04 - Charge nurse spoke with the above offices regarding concern for continued benzodiazepine prescriptions - Records will be faxed to their offices on discharge, as all benzodiazepines were discontinued during this hospitalization 03/06 -The patient did not request benzodiazepines and did not complain of anxiety today. I suggested to him that perhaps Abilify is also helping with anxiety in his case, and he responded by saying "perhaps." 03/09 -Today, the patient is insisting that what he needs is "benzodiazepines," and explains that the reason he "needs" benzodiazepines is that he has "benzodiazepine receptors," and that he is the only medications that work. He is unable to process warnings about the risks of benzodiazepines in the elderly, including increased risk of falls and mortality. Clearly, the patient is seeking benzodiazepines and has no insight into the associated risks. He also insists that he has never had trouble with benzodiazepines in the past, although there is well-documented of this. 03/10 -Today, the patient repeated his insistence that he needs benzodiazepines and that benzodiazepines are the only medications that work because he has "benzodiazepine receptors." After being told that everyone has central nervous system receptors to which benzodiazepines may attach, he replied, "That may be, but some of people need to have benzodiazepines forearm benzodiazepine receptors. 03/12 -Continues to request Benzodiazepines. 03/13 -Requests Valium for his "benzodiazepines receptors." 03/27 -Refuses to cooperate with assessment today, but has recently told staff that he needs "either Valium or Ativan." -The patient apparently has no working insight into his history of abuse of prescription medications (benzodiazepines). 04/15 -The patient has not reference to request for benzodiazepines recently. However, the context is that he has not communicated much of anything directly, a other than the occasional need for self-care items. 04/24 -Today, the patient repeats his request for benzodiazepines, and insists that he is "supposed" to be taking diazepam 10 mg 3 times a day and temazepam for sleep every night. 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 Unfortunately, the exact opposite seems to have occurred. Not only was the patient was uncooperative moran bsequent to a dose of Valium, he seems to have been disinhibited by it and shouting "get out" or "get away" several times when approached by staff 04/25 - pt focused on seeking temazepam, or Valium 04/27 -The patient does have a history of substance dependence. However, the current plan and expected disposition is for the patient to be transferred to an extended care inpatient psychiatric unit where abuse of prescribed medications is unlikely to occur. Today, the patient calmly requests temazepam and says that he has tried a number of different sleeping pills, but "that is the one that works." The patient is also able to clearly say that he understands that temazepam is physically habituating that there are associated risks associated with temazepam including, but not limited to, a risk of falls, accidents, confusion, and depression. He tells us that at prescribed dosages he has not had any of these problems in the past. -Today, I agreed to a trial of temazepam 15 mg at bedtime, a dose that the patient says has been effective in the past. 04/30 close monitoring of temazepam given above, so far not taken 05/01 -After persistently insisting that he had to have temazepam in order to sleep and that nursing staff reports that he is sleeping through the night are wrong because he tends to rest with his eyes closed, the patient has not ask for temazepam and has not been given temazepam since it was ordered a week ago. The patient declined to explain why he has not ask for it, and refuses to answer questions today as to whether he is sleeping well without. In fact, when asked to explain why he had not taken any after insisting on having a prescribed, he shouted "get the hell out!!." Perhaps the patient has forgotten that it was ordered, but he seemed to remember the day after it was ordered and ask for not asked for it since. Our thought is that he may have somehow incorporated the order for temazepam into his delusional when belief system, based on his rage when asked to explain why he hasn't asked for it. (3) Hypertension: 02/25 - Continue home dose of clonidine 0.1mg qHS 03/01 Watch mildly elevated blood pressures as patient has been refusing clonidine 03/03 - BP normal past two days, and low today 03/10 -The patient's blood pressure today was 136/73. His pulse was 71 03/14 - elevated BP it is not urgent but will need monitored. 03/15 - BP WNL / - BP continues to be WNL 04/02 - BP remains within normal limits; continue daily vitals per standard admission order set - Will consider acute phase of this problem resolved at this time (4) Acute UTI: 05/19 - Pt awoke with symptoms of urinary retention, pain, and burning; temperature mildly elevated - Urinalysis ordered this AM, which was positive for leukocyte esterase, WBCs, 3+ urine bacteria - Urinalysis also positive for RBC and 3+ urine blood; study from admission (02/23/19) was also positive for trace urine blood - Will begin empiric treatment with nitrofurantoin 100mg BID x 7 days - Urine culture is pending, and treatment course to be adjusted accordingly once results are obtained - Continue to monitor symptoms Risk Factors Assessment Male: Yes : Yes Do You Have Access To A Gun?: No Health Problems: Yes Mental Health Diagnoses: Yes Substance Use Disorders: Yes Protective Factors Assessment Hindu Beliefs: No : No Responsible for Young Children: No Employed: No Stable Relationships: No Supportive Family: No Good Rapport with Provider: No Absence of Any Risk Factors Above: No Interval History Identifying Information SCOTT ROBERTO is a 74-year-old M who currently lives at a [facility] in [place], has a history of schizophrenia, and is known to our unit from several previous admissions, most recently in 09/2016. He was admitted on 02/24/19 16:40 on a 302 involuntary commitment for exacerbation of schizophrenia and heightened paranoia resulting in belief he needed to hide in a dumpster to seek refuge from impending bombings. He was found by [facility] staff and brought to the ED by police, and is on a 304 involuntary commitment as of 03/16/19. 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 Chief Complaint "Ok, it was hard getting out of bed today." Review of Systems Notes Constitutional: reports feeling weak, "hard to get out of bed" Cardiovascular: denied Respiratory: denied Gastrointestinal: denied Genitourinary: reports pain/burning with urination, urinary retention Neurological: denied Psychiatric: denies symptoms other than stated above Total of at least 10 systems reviewed, pertinent positives as above and in HPI. Sleep Information Total Hours of Sleep: 8.25 Sleep Comments: pt on q-15 minute checks Meal Information Percent Meal Consumed - Breakfast: 100 Percent Meal Consumed - Lunch: 100 Percent Meal Consumed - Dinner: 100 Nutrition Comment: per meal record Subjective Subjective Patient was seen & assessed and interval progress reviewed with nursing and social work. Staff reports the patient has been attending groups, interacting and processing appropriately. Pt has a meeting scheduled with a advertising account representative from the [facility] this morning. Pt reported urinary symptoms this morning, and a urinalysis suggested presence of a UTI. Pt was seen today to assess progress since admission. Pt states that he is "ok", he admits that he has not been feeling well today - but gives somewhat vague general symptoms - "I had trouble getting out of bed". Pt temperature was mildly elevated this morning. He does reports pain and burning with urination, but denied significant flank or back pain. Pt was agreeable to beginning an antibiotic to treat his symptoms while we await urine culture. Pt denies any needs or concerns today aside from his urinary symptoms. He states he feels his meeting went well this morning, and he remains agreeable to discharge to a [facility] if he is accepted. Pt denies acute need at this time. Physical Exam Psychiatric Orientation: alert, oriented x 3 and cooperative Apperance: appropriately dressed, + disheveled and appeared stated age Eye Contact: good eye contact Motor Behavior: no abnormal motor movements; + unsteady gait or station (appearing more unsteady on feet today, reduced ambulatory efforts) Speech: normal rate/rhythm/volume of speech Affect: + flat affect (appearing fatigued) Mood: no depressed mood and no anxious mood Thought Process: goal directed thought process and + concrete thought process Thought Content: not paranoid and no hopelessness Suicidal Thoughts: denies suicidal thoughts Hallucinations: no auditory hallucinations and no visual hallucinations Cognition: attention grossly intact and language grossly intact Insight: + limited insight (fair insight with immediate treatment goal, but limited d/t chronic illness) Judgement: + limited judgement (fair judgment w/ immediate treatment goal, but limited d/t chronic illness) Vital Signs (Past 24 Hours) Last Vital Signs Temp 37.3 C 05/19/19 07:00 Pulse 81 05/19/19 07:01 Resp 18 05/19/19 07:00 BP 105/61 05/19/19 07:01 Pulse Ox 96 02/24/19 08:10 Results & Data Laboratory Results Laboratory Results - last 24 hr 05/19/19 Unknown Urine Color Yue Urine Appearance Cloudy A Urine pH 6.5 Ur Specific [place] 1.025 Urine Protein 3+ H Urine Glucose (UA) Negative Urine Ketones Trace H Urine Blood 3+ H Urine Nitrite Negative Urine Bilirubin Negative Urine Urobilinogen Negative Ur Leukocyte Esterase 1+ H Urine RBC >30 H Urine WBC >30 H Ur Epithelial Cells 5-10 H Urine Bacteria 3+ H Hyaline Casts 0-5 Current Inpatient Medications Current Inpatient Medications: Current Inpatient Medications Acetaminophen (Tylenol) 650 mg PO Q4H PRN PRN Reason: Headache or Minor Fever Stop: 06/15/19 20:17 Last Admin: 05/19/19 06:54 Dose: 650 mg Documented by: Al Hydrox/Mg Hydrox/Simethicone (Maalox) 30 ml PO Q4H PRN PRN Reason: GI Upset Stop: 06/15/19 20:43 Benztropine Mesylate (Cogentin) 0.5 mg PO BID PRN PRN Reason: dystonia Stop: 06/15/19 20:44 Bismuth Subsalicylate (Kaopectate) 15 ml PO PRN PRN PRN Reason: Loose Stool Stop: 06/15/19 20:44 Clonidine HCl (Catapres) 0.1 mg PO HS MAG Stop: 05/23/19 21:59 Last Admin: 05/18/19 22:00 Dose: 0.1 mg Documented by: Cyanocobalamin (Vitamin B-12) 500 mcg PO DAILY MAG Stop: 05/23/19 08:59 Last Admin: 05/19/19 09:13 Dose: 500 mcg Documented by: Hydroxyzine HCl (Vistaril) 25 mg PO Q4H PRN PRN Reason: Anxiety Stop: 05/23/19 08:14 Hydroxyzine HCl (Vistaril) 50 mg PO HSZ PRN PRN Reason: Insomnia Stop: 06/15/19 20:45 Magnesium Hydroxide (Milk Of Magnesia) 30 ml PO DAILY PRN PRN Reason: Heartburn Stop: 06/15/19 20:45 Magnesium Oxide (Mag-Ox) 400 mg PO DAILY MAG Stop: 05/23/19 08:59 Last Admin: 05/19/19 09:13 Dose: 400 mg Documented by: Miscellaneous (Remove Nicoderm Patch) 1 ea N/A HS [facility] Stop: 05/23/19 21:59 Last Admin: 05/18/19 22:02 Dose: Not Given Documented by: Multivitamins (Multivitamin Tab) 1 tab PO DAILY [facility] Stop: 05/23/19 08:59 Last Admin: 05/19/19 09:13 Dose: 1 tab Documented by: Nicotine (Nicoderm Cq) 14 mg TD QAM [facility] Stop: 05/23/19 08:59 Last Admin: 05/19/19 09:13 Dose: Not Given Documented by: Olanzapine (Zyprexa) 10 mg IM HS PRN PRN Reason: Undecided Stop: 05/23/19 08:19 Pyridoxine HCl (Vitamin B-6) 100 mg PO DAILY MAG Stop: 05/23/19 08:59 Last Admin: 05/19/19 09:13 Dose: 100 mg Documented by: Sodium Chloride ([place] Nasal) 1 - 2 sprays NA PRN PRN PRN Reason: Nasal Dryness/Congestion Stop: 05/23/19 08:19 Ziprasidone (Geodon) 60 mg PO BIDM MAG Stop: 06/05/19 17:44 Last Admin: 05/19/19 09:13 Dose: 60 mg Documented by: Mental Health & Subst Abuse Tx Psychiatrist Name of Psychiatrist: [facility] - Dr. Alves Psychiatrist's Psychiatric Appointment Comment: [address], [place] [address] Therapist Name of Therapist: Sammy Hand Baseball Sewer Name of Hand Baseball Sewer: Shruti Lopez Phone Number for Hand Baseball Sewer: Case Management Appointment Comment: [id number], [place] [address] Post Discharge Appointments Primary Care Physician Name Of Family Doctor: [facility] - Dr. Lopez Primary Care Provider Appointment Comment: [address], [address], [place] [address] Contact Information Discharge Discharge [address]: [address] [place] [id number] CPT Code CPT Code 85654 (1) Schizophrenia Schizophrenia type: paranoid schizophrenia Qualified Code(s): F20.0 - Paranoid schizophrenia (2) Hypertension Hypertension type: essential hypertension Qualified Code(s): I10 - Essential (primary) hypertension
[2019-05-19] MEDS: NITROFURANTOIN MONOHYDRATE 100 MG CAP PO SCH ×2 (15:08→21:00)
[2019-05-19] MEDS: cloNIDine HCL 0.1 MG TAB PO SCH (21:01)
[2019-05-20] MEDS: ZIPRASIDONE HCL 20 MG CAP PO SCH ×3 (08:32→17:19)
[2019-05-20] MEDS: PYRIDOXINE HCL 50 MG TAB PO SCH ×2 (08:39→09:23)
[2019-05-20] MEDS: NITROFURANTOIN MONOHYDRATE 100 MG CAP PO SCH ×2 (08:40→21:26)
[2019-05-20] MEDS: MULTIVITAMIN TAB PO SCH ×2 (08:40→09:22)
[2019-05-20] MEDS: MAGNESIUM OXIDE 400 MG TAB PO SCH ×2 (08:40→09:22)
[2019-05-20] MEDS: NICOTINE 14 MG/24 HR PATCH TD SCH ×2 (08:41→09:23)
[2019-05-20] MEDS: CYANOCOBALAMIN 500 MCG TABLET (VITAMIN B-12) PO SCH ×2 (08:41→09:23)
[2019-05-20] MEDS ORDERED: OLANZapine 10 MG/2.1 ML SDV IM PRN (08:47)
[2019-05-20] MEDS ORDERED: SODIUM CHLORIDE 0.65% NA SOLN 45 ML (OCEAN) PRN (08:50)
--- NOTE | 2019-05-20 13:36 | Psychiatric Progress Note ---
Date of Service May 20, 2019 Impression / Recommendations Impression Patient's diagnosis of schizophrenia is chronic, but he has been demonstrating improvements in condition in the past few weeks. Pt has remained compliant with ziprasidone 60mg BID, and has been pleasant in interactions with staff. He has been attending groups more frequently. Consideration at this time is for possible diversion to [facility] at discharge. Pt has signed JEFFREY and referral has been faxed. We still have not heard about an anticipated bed date from the [facility] referral. Given the chronicity and severity of the patient's condition, it is important that supervision be maintained after discharge to ensure medication compliance and appropriate behavior. Pt is at risk of harm to himself as well as others if he is discharged prior to ensuring an appropriate discharge plan is in place. (1) Schizophrenia: 02/25 - Continue home medication regimen - as refusing offerings of his antipsychotic, will likely require olanzapine IM (or alternative agent) over objection, given clear evidence of paranoia and delusional thought process - previously stabilized on this medication - Pt agreeable to taking all other medications, with exception of antipsychotic as mentioned above - Admitted to a locked inpatient behavioral health unit, on q15 minute safety checks - Encourage medication initiation/adjustments as indicated - Encourage participation in group and recreational therapies - Gather collateral information from outpatient providers and retirement staff - Suggest family meeting to involve outpatient supports in safety planning - Reschedule appropriate aftercare appointments 02/26 -Patient indicates willingness to sign a release for the [facility] retirement, will get collateral from their staff. -File for 303 involuntary commitment to be held tomorrow. -Recommend medications over objection, with an IM Zyprexa backup for refusal of oral medication. Involve outpatient treatment team to discuss ways to improve stability and compliance; consider long-acting injectable antipsychotic. -Order fasting labs for monitoring on an atypical antipsychotic once patient is more cooperative. 02/27 -The patient was retrained at his involuntary commitment hearing (303) this morning. -He has continuously and consistently refused psychiatric medications to date. However, today, when I explained that that a option that might become necessary in his case is medication over objection, and an intramuscular form, the patient said that he understood and that he would try medications that I prescribe. His initial preference would be olanzapine, but because olanzapine is not available in a long acting depot form, we would first like to try aripiprazole. He indicates that he is taken aripiprazole in the past and has been able to tolerate it, although he does not believe that it has been particularly helpful. -A trial dose of aripiprazole 15 mg by mouth, as a one-time dose, has been ordered and he assessed for efficacy. 02/28 -Appears to be tolerating initiation of Abilify so far. Remains delusional, paranoid. May consider further titration tomorrow -Aricept discontinued at patient's request on 02/27/2019. The medication has not been demonstrated to be efficacious for cognitive impairment associated with long-standing schizophrenia however we should be vigilant for slowing of mentation following discontinuation. 03/01 Patient fixated and irrational regarding access to clothing item as above today. Hospital environment becoming incorporated and delusions. Consider possibility that the aripiprazole is contributing to activation. We will increase to 20 mg tomorrow and also start Risperdal 1 mg p.o. twice daily as as needed. 03/02 - Continue with aripiprazole at 20mg daily, consider need for further t itration - if tolerating and effective, eventual plan will be for conversion to Abilify Maintena - Pt has not yet utilized risperidone 03/03 - Increase aripiprazole to 25mg (equivalent to 30mg pill) and change to liquid formulation to decrease risk of cheeking/nonadherence, as patient does not believe he needs medication and had been noncompliant prior to hospitalization. - Fasting glucose and lipid profile ordered for tomorrow for monitoring on an atypical antipsychotic. - Private room due to psychosis, agitation, and inappropriate disrobing/sexual behavior. - Meeting with [facility] and [facility] staff when patient able to tolerate. 03/04 - Continue aripiprazole 25mg liquid (30mg pill equivalent) and continue to observe for improvement in thought process/content - consider conversion to Maintena if effective, versus trial of another agent if improvement remains limited - Fasting labs reviewed - all values WNL - Continue medically necessary private room - Request meeting with [facility] staff, in order to obtain details about patient's proximity to baseline 03/05 -Patient refusing liquid aripiprazole, but agrees to take the pill: Ordered 30 mg daily. -Schedule meeting with his director of casework, CRR and psych rehab staff. Consider involuntary outpatient commitment at the time of discharge. 03/06 -The patient has improved in that he is more reality based at this point. He continues to harbor fixed, systematized delusions, but is generally able to focus on reality based topics. -Although the patient tells me that he does not feel that aripiprazole has been effective, he is able to accept my opinion in the opinion of the staff that he has improved in response to aripiprazole. -The patient's main objection to aripiprazole oral solution is that he does not like the way it tastes, and within this context, he tells us that he is willing to accept Abilify Maintenaand requests that it be injected into his buttock. Abilify Maintena 300 mg IM ordered, and oral Abilify discontinued. We will resume oral Abilify if the patient subsequently changes his mind and refuses the injection. 03/07 resuming Abilify oral given his refusal of FARAH form of Abilify 03/08 is taking Abilify po form but refusing Abilify Maintena form. advise close monitoring for potential of checking given pt's tendency to not want to take medications. 03/09 -The patient is flatly refusing to take aripiprazole in the form of Abilify Maintena. He is also been hesitant to take oral Abilify, but has been doing so. -The patient's lack of cooperation is thought possibly to be related to an un-expressed desire to not be discharged back to the community. He told me today that he left his meeting with his community providers after a few seconds because "just the side of them made me extremely anxious. My pulse elevated to 140." Later, he told me that he was still anxious about it and his pulse was "still around 130." The patient allowed me to take his pulse, and it was approximately 76. At that point he said, "did I say pulse? I meant systolic blood pressure." And when I pointed out that his systolic blood pressure of 130 is not considered to be a particular concern, he said "I mean diastolic." -Our hope had been that the patient would agree to accept a Depo form of medication. He was refusing Haldol Decanoate because of various side effects. Risperidone constant was ruled out as a first-line Depo medication because of the frequency of administration (the patient tends to get into power struggles over medications) and because he says that he is sensitive to "big needles." Invega would be an option, but currently the patient is being so uncooperative that our concern would be that he would cheek the oral tablets that we would have to give him first. Accordingly, the new strategy will be to discontinue Abilify, and resume olanzapine with olanzapine IM over objection if necessary. We will begin the olanzapine Zydis 20 mg at bedtime 03/10 -The patient took the prescribed dose of olanzapine Zydis 20 mg at bedtime last night. Today, he tells me that it "did not help at all." However, staff report that he has been somewhat more agreeable, more pleasant, and less para noid today. -As he has with other providers, today he told me that I should have given him olanzapine 5 mg "to start", and I explained that he was already on olanzapine 20 mg when he came into the hospital and we know that he is able to tolerate that dose. He tells me that he did, in fact tolerate the dose and is not aware of any side effects, but, somewhat illogically, insisted that the dose was "too high for a starting dose." 03/11 - Continue current medication regimen at this time - olanzapine 20mg daily - Encourage participation in the milieu and in group programming as tolerated 03/12 -Continue current medication regimen. The patient's condition has not yet improved. -The patient does participate in select groups, but often tends to be disruptive. 03/13 -Today, the patient seems to be somewhat more cooperative and less frankly delusional. It was possible to engage in a mostly reality based conversation for 5 or 10 minutes at a time. Also, although he was unhappy with me when I refused to provide him with a dose of Valium for anxiety, he was able to remain pleasant and calm at this time, did not storm from the room." 03/14 and 03/15 -no change in medication will work on therapeutic alliance given patient is not participating 03/16 -304 involuntary commitment granted. -Patient remains completely uncooperative with treatment, refused his Zyprexa Zydis last evening, but then ultimately took it before he received the injection. I have a high suspicion for cheeking of antipsychotic medication, and we will continue to be vigilant with mouth checks, and work towards a long- acting injectable. 03/17 -Patient has been on Zyprexa 20 mg at bedtime for 1 week, with limited response. He is refusing to discuss other medication options. Per records, he has been prescribed up to 30 mg olanzapine in the past, so will increase his dose to this previously tolerated dose, as it is 1 of the few medications he has been willing to take. Continue IM backup for refusal, and Zyprexa Zydis formulation to decrease risk of cheeking. He is not compliant with mouth checks, but have asked staff to try to observe him for 10 minutes after taking the Zydis to ensure he is not spitting it out before it dissolves. 03/18 -Continue Zyprexa Zydis 30 mg at bedtime with IM backup. Consider switch to a different medication (?oral paliperidone with IM backup) if irritability and agitation continues. He has tried virtually every atypical antipsychotic and reports none of them were effective (although some trials were short due to nonadherence) and has a history of dystonia on haloperidol. Clozapine would be a reasonable choice, but he has been unwilling to even discuss medication options. -Consider some component of cognitive decline which could be contributing to his worsening presentation and will need to be monitored and worked up further once he is more psychiatrically stable. -Refer to [facility] in the event that he does not improve and long-term inpatient treatment is needed. 03/19 - Proceed with [facility] referral. 03/20 - Continue current medication regimen; patient refused EKG and CXR yesterday - refused again today - Continue attempts to gather information to make a referral to [facility] 03/23 - Proceed with [facility] referral - patient has refused EKG and CXR for multiple attempts. We will send most recent tests available - Continue current medication regimen at this time 03/24 -Attempted to hold diversion meeting with his outpatient [facility], retirement director, and the [facility] MH/ID; patient refused to attend or participate in the meeting. 03/25 - 03/26 - Continue treatment plan as above - no change in patient's condition and he remains unwilling to participate meaningfully in treatment - Continue with [facility] referral 03/27 -The patient has been informed that the plan at this point is to transfer him to [facility] for long-term inpatient psychiatric treatment, given his refusal to adhere with treatment and his associated behaviors in the community when not adherent with psychiatric treatment. -The patient continues to refuse mouth checks after given dosages of Zyprexa Zydis, and there is some question regarding whether he is actually ingesting this medication. He also would not cooperate with laboratory testing. -There has been a question regarding the patient's cognitive functions, and prior to admission he had been taking Aricept. When he does cooperate with this, I have not seen evidence of any substantial cognitive impairment. He may have mild cognitive impairment, but does not fully cooperate with formal cognitive assessment. He easily recalls the names of his providers, the names of the medications he is taking, the names of the various infectious agents that he believes are causing some of his psychiatric symptoms, the names of certain chemicals that he believes will rid him of the reference to infections, and is able to discuss current events such as recent news items. His assertion that he wants to return to his apartment in the community seems belied by his steadfast refusal to cooperate with those interventions I would make it possible for him to return, and there is some suspicion that although the patient remains floridly psychotic he may also be intentionally sabotaging discharge. 03/28 - 03/30 -There is been no foreign exchange student coordinator the past 2 weeks, and long-term inpatient treatment at the [facility] is indicated. 03/31 - Continue current medication regimen - Pt briefly verbalized willingness for FARAH, but was not agreeable to medication adjustments to allow for this to be possible - If he should change his mind; recommendation is for trial of Invega orally to establish tolerability, then consideration for Invega Sustenna - unwilling for this today 04/01 - 04/03 - Continue current medication regimen - Continues to refuse FARAH, will continue discussion daily as this is the reported preference of his CRR 04/04 -Questionable positive PPD measuring 13 mm but history of confinement places him at higher risk. Patient refused chest x-ray today but we will reapproach. No active symptoms of infection. Order for sputum culture and smear today for confirmation. 04/05 -PPD now appears negative. Would suggest follow through with sputum smear and culture for confirmation as previously ordered -Continue treatment plan as above 04/06 - PPD reportedly negative, patient unable to follow-up with sputum smear - therefore discontinued - Continue medication regimen as above - unwilling to discuss conversion to an FARAH - Meeting today with representation from [facility] to discuss discharge planning 04/07 - Continue medication regimen as above - remains unwilling to discuss changes - Additional meeting with CRR and CM scheduled for next week - We have been regularly assessing patient's condition and appropriateness to go outside since his 30-day treatment plan review. As patient continues to be unwilling to participate in a meaningful conversation with providers regarding his condition, we continue to be unable to determine if he is appropriate to be taken off the unit - therefore will await ability to discuss the topic in a meaningful way prior to making this determination. Will continue regular evaluation. 04/08 - 04/12 - Continue current medication regimen, as patient unwilling to discuss changes - Attempted again to determine if appropriate to go outside, patient unwilling to participate in conversation despite being told the goal of allowing him to go outside - Meeting with CM and CRR director scheduled for 04/13 at 1030 04/13 - Continue Zyprexa 30mg daily - unwilling to engage in conversation to discuss changes - Remains unwilling to engage in conversation to determine if he is appropriate to go outside, he has been made aware this is a possibility for him - Meeting for attempted diversion resulted in decision to no longer hold patient's [facility] bed, [facility] admission is supported based on little to no improvement since admission and limited willingness to engage in conversations regarding medication adjustments - We have been asked to attempt to get a QuantiFERON-TB Gold Plus test, despite negative PPD reading within acceptable timeframe - pt unwilling to engage in conversation to obtain consent, further indicating why long-term inpatient psychiatric hospitalization is necessary. Will continue to attempt to gain consent for this testing to be completed 04/15 -The patient is slightly more communicative today and that he does answer at least one question which was whether he would be in agreement if we offered him a drug holiday from olanzapine. His response was in the affirmative.. He also said "thank you." -The patient continues to appear suspicious and he clearly is angry at and unwilling to cooperate with staff. He is particularly bumptious with individuals who he sees as not fully trained and fully qualified. -The plan remains transfer to the [facility] for long-term psychiatric care. Our hope remains that we will be able to divert the patient from the [facility], but the patient, as noted above, remains uncommunicative and resistant. Perhaps contributing to the patient's obvious anger and distress is the fact that he has learned this week that his residential program is unwilling to allow him to return and has stopped holding his bed for other individuals. 04/16 - Continue current treatment plan, which includes holiday from olanzapine as a rapport building attempt, and due to concerns that he is more irritable and resistant to treatment - which is obviously not beneficial for his overall condition. - Attempted to communicate with the patient today via written/printed text - will add addendum to this note if patient was willing to complete the sheet and respond to questions 04/21 -Patient remains uncooperative and unwilling to participate in interviews, but has been out of his room more and attending some groups. He remains unwi lling to discuss treatment options, including antipsychotic medication. 04/22 - Patient remains unwilling for medications, but is interacting with peers appropriately and attending groups. Will try discontinuing private room and placing him with a roommate, is perhaps increased socialization will be therapeutic for him. 04/23 -no change, patient still unwilling for medications(other than marijuana and benzos) 04/24 -The patient remains angry, suspicious, and largely uncommunicative. He spoke briefly with the attending psychiatrist today in order to request privileges to go outdoors with staff, and was able to cooperate with a fresh air break, but subsequently was angry, bumptious, and willing to cooperate with assessments. 04/25 - Valium 5mg dose yesterday appeared to lead to some disinhibited verbally agitated behavior, with the Valium dose being discontinued following that one dose. Pt is fixated on Valium and on temazepam. refusal to take other medications with. Handling a roommate decently currently. Pt refusing to attend groups. Limited engagement with peers and staff occurring. no change to plan today 04/26 no change to plan today 04/27 -The patient cooperated with an interview today after several weeks of flatly refusing, sometimes rudely refusing to speak to providers. Today, the patient not voiced any delusional material and was able to specifically answer questions regarding perceptual disturbances. 04/28 -no change. 04/29 -start ziprasidone 20 mg twice daily with meals. Reviewed risks, benefits and common side effects including sedation and the need to take with food. 9/12 maintained ziprasidone at current dose today given pt's tendency to refuse medications mikey if notice any s/e, considering raising dose tomorrow 05/01 -Based on the patient's behavior today there seems to be no evidence that the patient is enjoying any particular benefit from ziprasidone. To the contrary, he may have become more bumptious and withdrawn. My recommendation is that we continue to observe him on ziprasidone 20 mg twice a day before increasing his dose further, possibly over the weekend. 05/02 -continue current medication and consider dose increase next week. It is l ikely that it will take weeks to show benefit from antipsychotic medication given the severity and chronicity of his symptoms, and his history of treatment resistance. He would be a good candidate for clozapine, but has never been willing to consider it. 05/03 -increase ziprasidone to 40 mg twice daily with food. Continue to encourage group attendance. 05/04 - Continue recently increased dose of ziprasidone 40mg BID with food 05/05 - Continue as above; limited change in presentation at this time 05/06 - Pt agreeable to titrating ziprasidone to 60mg BID, starting with this evening's dose. - Is superficially cooperative with conversation, but remains resistant to unit programming and more in-depth interactions with staff - Continues to be unable/unwilling to discuss status of delusional beliefs; however, appear to be ongoing as patient has reported that he is to be discharge, that there is a court order for him to leave, and that he has an apartment secured to move into - despite not having contact with individuals other than his director of casework 05/07 - Continue as above, limited change in presentation 05/08 - Continue as above, consider need for further titration of ziprasidone - Limited change in presentation, but has been superficially pleasant 05/09 - continue as above, considering potential to further titrate ziprasidone 60mg bid with meals, as pt was more willing to engage technical writer even more then prior times (last seen by this technical writer about 9 days ago) will maintain as is for now but considering raising to 80mg bid, 05/10 continue plan unchanged 05/11 - Continue ziprasidone at 60mg BID - unwilling to engage in discussion regarding further titration - Would suggest titration to 80mg BID, especially as he has verbalized ongoing delusional beliefs - Continue to engage patient in discussion regarding possible diversion plan; reach out to the county to discuss options and re-evaluate condition 05/12 - Continue as above, patient again unwilling to engage in conversation long enough to discuss medication titration - Consider titration to 80mg BID when able to discuss further, ongoing reported delusions that he is "not sick" and "does not have schizophrenia" 05/13 - Continue as above - patient more agreeable to conversation today, actually meeting with this provider in the office - Ongoing delusional belief that he does not have a diagnosis of schiz ophrenia, but behaviors not likely to be harmful to patient in the outpatient setting if he is met with adequate supports - Will attempt to schedule meeting to involve county in discussion of possibl e diversion plan 05/14 - Continue current mediation regimen - Plan is for meeting with case management and county representatives 05/15 to consider diversion planning - Still no word on anticipated bed date from [facility] 05/15 - Continue current medication regimen - Meeting scheduled today at 1200 to discuss possible diversion planning versus attempt to expedite [facility] transfer - No estimated bed date provided 05/16 -Possible diversion to [facility] with further planning to occur on Saturday -Continue medication regimen unchanged 05/17 -Continue treatment plan unchanged 05/18 - 05/20 - Continue current treatment plan - Referral faxed to [facility] housing consideration, patient remains agreeable (2) Substance abuse: 02/25 - Pt has reported history of substance abuse, and recommendation has consistently been for avoidance of substances with significant abuse potential. - PDMP queried - most recent prescriptions below - lorazepam 0.5mg #60 tabs for 30 day supply - Dr. Alves - filled 02/12/2019 - alprazolam 0.5mg #90 tabs for 30 day supply - Dr. Lopez - filled 01/16/2019 - temazepam 30mg #30 caps for 30 day supply - Dr. Lopez - filled 01/16/2019 - Will continue lorazepam 0.5mg BID prn on admission, as only medication that is seemingly active - toxicology screen is negative for benzodiazepines, which questions if he has been taking the medication appropriately - Ideally will taper and discontinue the lorazepam, as recommendation remains that substances with abuse potential be avoided 02/26 -The patient's outpatient providers, during a meeting this morning, report that the patient tends to successfully convince physicians to prescribe benzodiazepines for him and that, in the past, he has abused him to the degree that he is practically obtunded. 02/27 -A repeat check of the PDMP reveals that the patient is consistently being prescribed lorazepam 0.5 mg twice daily (number 60/month) by a Dr. Brent Alves. He is also being prescribed alprazolam 0.[address] mg [address] Jeff Lopez, with the most recent previous prescription of alprazolam being on 01/16/[address] Lopez also prescribed temazepam 30 mg capsules #30 on 01/16/2019. According to his residential providers, no temazepam capsules were found among the patient's belongings. His most recent prescription for lorazepam 0.5 mg tablets was filled on 02/12/2019. 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 In the past, he reportedly has used clonazepam and temazepam. -I advised the patient that because of his history of misuse of benzodiazepines we would not be prescribing benzodiazepines during his hospital stay. An as needed order for lorazepam has not been used during hospital stay, and I discontinued the order today. 03/02 - Will need to coordinate care with his PCP and outpatient psychiatrist jonathan bernabe to discharge regarding the above. 03/04 - Charge nurse spoke with the above offices regarding concern for continued benzodiazepine prescriptions - Records will be faxed to their offices on discharge, as all benzodiazepines were discontinued during this hospitalization 03/06 -The patient did not request benzodiazepines and did not complain of anxiety today. I suggested to him that perhaps Abilify is also helping with anxiety in his case, and he responded by saying "perhaps." 03/09 -Today, the patient is insisting that what he needs is "benzodiazepines," and explains that the reason he "needs" benzodiazepines is that he has "benzodiazepine receptors," and that he is the only medications that work. He is unable to process warnings about the risks of benzodiazepines in the elderly, including increased risk of falls and mortality. Clearly, the patient is seeking benzodiazepines and has no insight into the associated risks. He also insists that he has never had trouble with benzodiazepines in the past, although there is well-documented of this. 03/10 -Today, the patient repeated his insistence that he needs benzodiazepines and that benzodiazepines are the only medications that work because he has "benzodiazepine receptors." After being told that everyone has central nervous system receptors to which benzodiazepines may attach, he replied, "That may be, but some of people need to have benzodiazepines forearm benzodiazepine receptors. 03/12 -Continues to request Benzodiazepines. 03/13 -Requests Valium for his "benzodiazepines receptors." 03/27 -Refuses to cooperate with assessment today, but has recently told staff that he needs "either Valium or Ativan." -The patient apparently has no working insight into his history of abuse of prescription medications (benzodiazepines). 04/15 -The patient has not reference to request for benzodiazepines recently. However, the context is that he has not communicated much of anything directly, a other than the occasional need for self-care items. 04/24 -Today, the patient repeats his request for benzodiazepines, and insists that he is "supposed" to be taking diazepam 10 mg 3 times a day and temazepam for sleep every night. 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 Unfortunately, the exact opposite seems to have occurred. Not only was the patient was uncooperative moran bsequent to a dose of Valium, he seems to have been disinhibited by it and shouting "get out" or "get away" several times when approached by staff 04/25 - pt focused on seeking temazepam, or Valium 04/27 -The patient does have a history of substance dependence. However, the current plan and expected disposition is for the patient to be transferred to an extended care inpatient psychiatric unit where abuse of prescribed medications is unlikely to occur. Today, the patient calmly requests temazepam and says that he has tried a number of different sleeping pills, but "that is the one that works." The patient is also able to clearly say that he understands that temazepam is physically habituating that there are associated risks associated with temazepam including, but not limited to, a risk of falls, accidents, confusion, and depression. He tells us that at prescribed dosages he has not had any of these problems in the past. -Today, I agreed to a trial of temazepam 15 mg at bedtime, a dose that the patient says has been effective in the past. 04/30 close monitoring of temazepam given above, so far not taken 05/01 -After persistently insisting that he had to have temazepam in order to sleep and that nursing staff reports that he is sleeping through the night are wrong because he tends to rest with his eyes closed, the patient has not ask for temazepam and has not been given temazepam since it was ordered a week ago. The patient declined to explain why he has not ask for it, and refuses to answer questions today as to whether he is sleeping well without. In fact, when asked to explain why he had not taken any after insisting on having a prescribed, he shouted "get the hell out!!." Perhaps the patient has forgotten that it was ordered, but he seemed to remember the day after it was ordered and ask for not asked for it since. Our thought is that he may have somehow incorporated the order for temazepam into his delusional when belief system, based on his rage when asked to explain why he hasn't asked for it. (3) Hypertension: 02/25 - Continue home dose of clonidine 0.1mg qHS 03/01 Watch mildly elevated blood pressures as patient has been refusing clonidine 03/03 - BP normal past two days, and low today 03/10 -The patient's blood pressure today was 136/73. His pulse was 71 03/14 - elevated BP it is not urgent but will need monitored. 03/15 - BP WNL 03/26 - BP continues to be WNL 04/02 - BP remains within normal limits; continue daily vitals per standard admission order set - Will consider acute phase of this problem resolved at this time (4) Acute UTI: 05/19 - Pt awoke with symptoms of urinary retention, pain, and burning; temperature mildly elevated - Urinalysis ordered this AM, which was positive for leukocyte esterase, WBCs, 3+ urine bacteria - Urinalysis also positive for RBC and 3+ urine blood; study from admission (02/23/19) was also positive for trace urine blood - Will begin empiric treatment with nitrofurantoin 100mg BID x 7 days - Urine culture is pending, and treatment course to be adjusted accordingly once results are obtained - Continue to monitor symptoms 05/20 - Pt appearing to be more unstable and somewhat disoriented at times; fever this morning - CBC obtained, showing leukocytosis - CMP showing sodium of 133; pt admittedly not eating well due to physical illness, did consume broth after interview - CK obtained from prior blood sample, as patient had been reporting stiffness to nursing - wnl at 83 - Continue symptomatic treatment: Tylenol for pain/fever, regular hydration/nutrition - Continue ABX as above, sensitivities pending - adjust antibiotic as necessary based on findings - Pt did appear improved later in the afternoon, requesting to shower and appearing more stable on his feet Risk Factors Assessment Male: Yes : Yes Do You Have Access To A Gun?: No Health Problems: Yes Mental Health Diagnoses: Yes Substance Use Disorders: Yes Protective Factors Assessment Druze Beliefs: No : No Responsible for Young Children: No Employed: No Stable Relationships: No Supportive Family: No Good Rapport with Provider: No Absence of Any Risk Factors Above: No Interval History Identifying Information SCOTT ROBERTO is a 74-year-old M who currently lives at a [facility] in [place], has a history of schizophrenia, and is known to our unit from several previous admissions, most recently in 09/2016. He was admitted on 02/24/19 16:40 on a 302 involuntary commitment for exacerbation of schizophrenia and heightened paranoia resulting in belief he needed to hide in a dumpster to seek refuge from impending bombings. He was found by [facility] staff and brought to the ED by police, and is on a 304 involuntary commitment as of 03/16/19. He has been referred to [facility] for nursing home treatment. Chief Complaint "Not good." Review of Systems Notes Pt is rather inconsistent with his reports on ROS, initially claiming some symptoms, then denying them. The following is all positive symptoms reported. Constitutional: reports generalized weakness, headache, fatigue Cardiovascular: denied Respiratory: denied Gastrointestinal: denies nausea, vomiting, or changes in bowel habits Genitourinary: reports burning with urination, at one point verbalizes left flank pain, and then denies Neurological: reports dizziness and confusion Psychiatric: denies symptoms other than stated above Total of at least 10 systems reviewed, pertinent positives as above and in HPI. Sleep Information Total Hours of Sleep: 8 Sleep Comments: pt on q-15 minute checks Meal Information Percent Meal Consumed - Breakfast: 80 Percent Meal Consumed - Lunch: 0 Percent Meal Consumed - Dinner: 100 Nutrition Comment: per meal record Subjective Subjective Patient was seen & assessed and interval progress reviewed with treatment team. Staff report the patient continues to be withdrawn to bed, admitting to ongoing urinary complaints and generalized weakness. Pt had a successful meeting with a customer counter representative from the [facility] yesterday. He is scheduled for a meeting with his director of casework today. Pt was seen today to assess progress since admission. Multiple visits had taken place, as patient continues to not feel well physically. He has presented with increased instability with ambulation and appeared intermittently confused today. Pt states that he is "not good", but has difficulty describing specific physical complaints. Pt admits that he continues to have burning with urination. He admits initially to left flank pain, but then says, "no that's not true, I lied. It's my head that hurts." Pt was asked specific symptoms about his head, rating the pain a 6/10, and when asked about duration of pain states - "years." Pt denies nausea/vomiting, and denies changes in his bowel habits. He denies muscle stiffness or soreness, but admits to feeling weak. Pt reports "I must have slept a lot" and admits to feeling mildly confused. Pt denies other specific needs at this time. Laboratory findings and vitals were shared with the patient: explaining that he had a fever, high WBC, and mildly low sodium. Pt was agreeable to drinking some vegetable broth, which was ordered for him after our encounter. Pt was reminded of need for routine hydration and nutritional intake. Physical Exam Psychiatric Orientation: alert, oriented to person, oriented to place, cooperative and + guarded (mildly, likely due to not feeling well); + not oriented to time (knew year and day of week, thought it was April 21) Apperance: appropriately dressed Pt appears to be in moderate distress, he has not been able to attend to ADLs today which is unlike him. He is observed periodically while resting in bed, at times laying diagonally, with arms crossed over his chest. Eye Contact: + fair eye contact Motor Behavior: + psychomotor retardation (pt appearing slowed today); + unsteady gait or station Speech: normal rate/rhythm/volume of speech (delayed response to questions at times, brief responses provided ) Affect: + blunted affect (appears to not be feeling well, subdued affect) and mood congruent with affect "Not good" Thought Process: clear/coherent thought process and + concrete thought process Insight: + limited insight Judgement: + limited judgement Vital Signs (Past 24 Hours) Last Vital Signs Temp 39.3 C H 05/20/19 13:18 Pulse 84 05/20/19 13:18 Resp 14 05/20/19 13:18 BP 142/72 H 05/20/19 13:18 Pulse Ox 92 05/20/19 13:18 Results & Data Laboratory Results Laboratory Results - last 24 hr 05/20/19 05/20/19 13:25 13:25 WBC Pending RBC Pending Hgb Pending Hct Pending MCV Pending MCH Pending MCHC Pending Plt Count Pending Sodium Pending Potassium Pending Chloride Pending Carbon Dioxide Pending Anion Gap Pending BUN Pending Creatinine Pending Est Cr Clr Drug Dosing Pending Est GFR ( Amer) Pending Est GFR (Non-Af Amer) Pending BUN/Creatinine Ratio Pending Glucose Pending Calcium Pending Total Bilirubin Pending AST Pending ALT Pending Alkaline Phosphatase Pending Total Protein Pending Albumin Pending Globulin Pending Albumin/Globulin Ratio Pending Current Inpatient Medications Current Inpatient Medications: Current Inpatient Medications Acetaminophen (Tylenol) 650 mg PO Q4H PRN PRN Reason: Headache or Minor Fever Stop: 06/15/19 20:17 Last Admin: 05/19/19 06:54 Dose: 650 mg Documented by: Al Hydrox/Mg Hydrox/Simethicone (Maalox) 30 ml PO Q4H PRN PRN Reason: GI Upset Stop: 06/15/19 20:43 Benztropine Mesylate (Cogentin) 0.5 mg PO BID PRN PRN Reason: dystonia Stop: 06/15/19 20:44 Bismuth Subsalicylate (Kaopectate) 15 ml PO PRN PRN PRN Reason: Loose Stool Stop: 06/15/19 20:44 Clonidine HCl (Catapres) 0.1 mg PO HS MAG Stop: 06/19/19 21:59 Cyanocobalamin (Vitamin B-12) 500 mcg PO DAILY MAG Stop: 06/19/19 08:59 Last Admin: 05/20/19 09:23 Dose: Not Given Documented by: Hydroxyzine HCl (Vistaril) 50 mg PO HSZ PRN PRN Reason: Insomnia Stop: 06/15/19 20:45 Hydroxyzine HCl (Vistaril) 25 mg PO Q4H PRN PRN Reason: Anxiety Stop: 06/19/19 08:44 Magnesium Hydroxide (Milk Of Magnesia) 30 ml PO DAILY PRN PRN Reason: Heartburn Stop: 06/15/19 20:45 Magnesium Oxide (Mag-Ox) 400 mg PO DAILY [facility] Stop: 06/19/19 08:59 Last Admin: 05/20/19 09:22 Dose: Not Given Documented by: Miscellaneous (Remove Nicoderm Patch) 1 ea N/A HS [facility] Stop: 06/19/19 21:59 Multivitamins (Multivitamin Tab) 1 tab PO DAILY MAG Stop: 06/19/19 08:59 Last Admin: 05/20/19 09:22 Dose: Not Given Documented by: Nicotine (Nicoderm Cq) 14 mg TD QAM [facility] Stop: 06/19/19 08:59 Last Admin: 05/20/19 09:23 Dose: Not Given Documented by: Nitrofurantoin Macrocrystals (Macrobid) 100 mg PO BID [facility], [facility]; Protocol Stop: 05/26/19 13:49 Last Admin: 05/20/19 08:40 Dose: 100 mg Documented by: Olanzapine (Zyprexa) 10 mg IM HS PRN PRN Reason: Undecided Stop: 06/19/19 08:44 Pyridoxine HCl (Vitamin B-6) 100 mg PO DAILY [facility] Stop: 06/19/19 08:59 Last Admin: 05/20/19 09:23 Dose: Not Given Documented by: Sodium Chloride (Deaver Nasal) 1 - 2 sprays NA PRN PRN PRN Reason: Nasal Dryness/Congestion Stop: 06/19/19 08:49 Ziprasidone (Geodon) 60 mg PO BIDM [facility] Stop: 06/19/19 08:59 Last Admin: 05/20/19 09:22 Dose: Not Given Documented by: Mental Health & Subst Abuse Tx Psychiatrist Name of Psychiatrist: [facility] - Dr. Alves Psychiatrist's Psychiatric Appointment Comment: [id number], [place] [address] Therapist Name of Therapist: Denies Business Proposal Rep Name of Business Proposal Rep: Shruti Lopez Phone Number for Business Proposal Rep: Case Management Appointment Comment: [phone], [place] [address] Post Discharge Appointments Primary Care Physician Name Of Family Doctor: [facility] - Dr. Lopez Primary Care Provider Appointment Comment: [address], [address], [place] [address] Contact Information Discharge Discharge Address: [address] [place] [address], [place] [address] CPT Code CPT Code 50581 (1) Schizophrenia Schizophrenia type: paranoid schizophrenia Qualified Code(s): F20.0 - Paranoid schizophrenia (2) Hypertension Hypertension type: essential hypertension Qualified Code(s): I10 - Essential (primary) hypertension
[2019-05-20 13:44] LABS: Basophils # (auto) 0.01 K/uL (0-0.2); Basophils % (auto) 0.1 %; Hematocrit (blood only) 41.8 % (42-52); Hemoglobin 14.4 g/dL (14.0-18.0); Immature Granulocytes # (auto) 0.06 K/uL (0.00-0.02); Immature Granulocytes % (auto) 0.4 %; Lymphocytes # (auto) 0.51 K/uL (1.2-3.4); Lymphocytes % (auto) 3.4 %; Mean Corpuscular Hemoglobin 32.7 pg (25-34); Mean Corpuscular Hgb Conc 34.4 g/dL (32-36); Mean Corpuscular Volume 94.8 fL (80-100); Mean Platelet Volume 8.9 fL (7.4-10.4); Monocytes # (auto) 1.03 K/uL (0.11-0.59); Monocytes % (auto) 6.8 %; Neutrophils # (auto) 13.43 K/uL (1.4-6.5); Neutrophils % (auto) 89.3 %; Platelet Count 193 K/uL (130-400); RDW Coefficient of Variation 12.9 % (11.5-14.5); RDW Standard Deviation 44.9 fL (36.4-46.3); Red Blood Count 4.41 M/uL (4.7-6.1); White Blood Count 15.04 K/uL (4.8-10.8)
[2019-05-20 14:11] LABS: Albumin Level 3.1 gm/dl (3.4-5.0); Calcium 9.1 mg/dl (8.5-10.1); Creatinine Clr Calc Pharmacy 64.6 ml/min; Est GFR (African American) 100.7; Est GFR (Non-African American) 86.9; Potassium 3.6 mmol/L (3.5-5.1)
[2019-05-20 14:14] LABS: Albumin Globulin Ratio 0.8 (0.9-2); Bilirubin,Total 1.2 mg/dl (0.2-1); Globulin 3.9 gm/dl (2.5-4.0)
[2019-05-20] MEDS: ACETAMINOPHEN 325 MG TAB PO PRN (14:24)
[2019-05-20] MEDS: cloNIDine HCL 0.1 MG TAB PO SCH (21:26)
[2019-05-21] MEDS: ZIPRASIDONE HCL 20 MG CAP PO SCH ×2 (08:32→17:26)
[2019-05-21] MEDS: NITROFURANTOIN MONOHYDRATE 100 MG CAP PO SCH ×2 (08:33→21:27)
[2019-05-21] MEDS: CYANOCOBALAMIN 500 MCG TABLET (VITAMIN B-12) PO SCH (08:34)
[2019-05-21] MEDS: MAGNESIUM OXIDE 400 MG TAB PO SCH (08:34)
[2019-05-21] MEDS: PYRIDOXINE HCL 50 MG TAB PO SCH (08:34)
[2019-05-21] MEDS: MULTIVITAMIN TAB PO SCH (08:35)
[2019-05-21] MEDS: NICOTINE 14 MG/24 HR PATCH TD SCH (08:37)
--- NOTE | 2019-05-21 18:17 | Psychiatric Progress Note ---
Date of Service May 21, 2019 Impression / Recommendations Impression Patient's diagnosis of schizophrenia is chronic, but he has been demonstrating improvements in condition in the past few weeks. Pt has remained compliant with ziprasidone 60mg BID, and has been pleasant in interactions with staff. He has been attending groups more frequently. Consideration at this time is for possible diversion to [facility] at discharge. Pt has signed JEFFREY and referral has been faxed. We still have not heard about an anticipated bed date from the [facility] referral. Given the chronicity and severity of the patient's condition, it is important that supervision be maintained after discharge to ensure medication compliance and appropriate behavior. He's been accepted at the [facility] for diversion and will have a 305 hearing 05/28. He remains at risk of harm to himself as well as others if he is discharged prior to ensuring an appropriate discharge plan is in place. (1) Schizophrenia: 02/25 - Continue home medication regimen - as refusing offerings of his antipsychotic, will likely require olanzapine IM (or alternative agent) over objection, given clear evidence of paranoia and delusional thought process - previously stabilized on this medication - Pt agreeable to taking all other medications, with exception of antipsychotic as mentioned above - Admitted to a locked inpatient behavioral health unit, on q15 minute safety checks - Encourage medication initiation/adjustments as indicated - Encourage participation in group and recreational therapies - Gather collateral information from outpatient providers and long-term staff - Suggest family meeting to involve outpatient supports in safety planning - Reschedule appropriate aftercare appointments 02/26 -Patient indicates willingness to sign a release for the [facility] long-term, will get collateral from their staff. -File for 303 involuntary commitment to be held tomorrow. -Recommend medications over objection, with an IM Zyprexa backup for refusal of oral medication. Involve outpatient treatment team to discuss ways to improve stability and compliance; consider long-acting injectable antipsychotic. -Order fasting labs for monitoring on an atypical antipsychotic once patient is more cooperative. 02/27 -The patient was retrained at his involuntary commitment hearing (303) this morning. -He has continuously and consistently refused psychiatric medications to date. However, today, when I explained that that a option that might become necessary in his case is medication over objection, and an intramuscular form, the patient said that he understood and that he would try medications that I prescribe. His initial preference would be olanzapine, but because olanzapine is not available in a long acting depot form, we would first like to try arip iprazole. He indicates that he is taken aripiprazole in the past and has been able to tolerate it, although he does not believe that it has been particularly helpful. -A trial dose of aripiprazole 15 mg by mouth, as a one-time dose, has been ordered and he assessed for efficacy. 02/28 -Appears to be tolerating initiation of Abilify so far. Remains delusional, paranoid. May consider further titration tomorrow -Aricept discontinued at patient's request on 02/27/2019. The medication has not been demonstrated to be efficacious for cognitive impairment associated with long-standing schizophrenia however we should be vigilant for slowing of mentation following discontinuation. 03/01 Patient fixated and irrational regarding access to clothing item as above today. Hospital environment becoming incorporated and delusions. Consider possibility that the aripiprazole is contributing to activation. We will increase to 20 mg tomorrow and also start Risperdal 1 mg p.o. twice daily as as needed. 03/02 - Continue with aripiprazole at 20mg daily, consider need for further titration - if tolerating and effective, eventual plan will be for conversion to Abilify Maintena - Pt has not yet utilized risperidone 03/03 - Increase aripiprazole to 25mg (equivalent to 30mg pill) and change to liquid formulation to decrease risk of cheeking/nonadherence, as patient does not believe he needs medication and had been noncompliant prior to hospitalization. - Fasting glucose and lipid profile ordered for tomorrow for monitoring on an atypical antipsychotic. - Private room due to psychosis, agitation, and inappropriate disrobing/sexual behavior. - Meeting with BCM and [facility] staff when patient able to tolerate. 03/04 - Continue aripiprazole 25mg liquid (30mg pill equivalent) and continue to observe for improvement in thought process/content - consider conversion to Maintena if effective, versus trial of another agent if improvement remains limited - Fasting labs reviewed - all values WNL - Continue medically necessary private room - Request meeting with [facility] staff, in order to obtain details about patient's proximity to baseline 03/05 -Patient refusing liquid aripiprazole, but agrees to take the pill: Ordered 30 mg daily. -Schedule meeting with his immigration case manager, CRR and psych rehab staff. Consider involuntary outpatient commitment at the time of discharge. 03/06 -The patient has improved in that he is more reality based at this point. He continues to harbor fixed, systematized delusions, but is generally able to focus on reality based topics. -Although the patient tells me that he does not feel that aripiprazole has been effective, he is able to accept my opinion in the opinion of the staff that he has improved in response to aripiprazole. -The patient's main objection to aripiprazole oral solution is that he does not like the way it tastes, and within this context, he tells us that he is willing to accept Abilify Maintenaand requests that it be injected into his buttock. Abilify Maintena 300 mg IM ordered, and oral Abilify discontinued. We will resume oral Abilify if the patient subsequently changes his mind and refuses the injection. 03/07 resuming Abilify oral given his refusal of FARAH form of Abilify 03/08 is taking Abilify po form but refusing Abilify Maintena form. advise close monitoring for potential of checking given pt's tendency to not want to take medications. 03/09 -The patient is flatly refusing to take aripiprazole in the form of Abilify Maintena. He is also been hesitant to take oral Abilify, but has been doing so. -The patient's lack of cooperation is thought possibly to be related to an un-expressed desire to not be discharged back to the community. He told me today that he left his meeting with his community providers after a few seconds because "just the side of them made me extremely anxious. My pulse elevated to 140." Later, he told me that he was still anxious about it and his pulse was "still around 130." The patient allowed me to take his pulse, and it was approximately 76. At that point he said, "did I say pulse? I meant systolic blood pressure." And when I pointed out that his systolic blood pressure of 130 is not considered to be a particular concern, he said "I mean diastolic." -Our hope had been that the patient would agree to accept a Depo form of medication. He was refusing Haldol Decanoate because of various side effects. Risperidone constant was ruled out as a first-line Depo medication because of the frequency of administration (the patient tends to get into power struggles over medications) and because he says that he is sensitive to "big needles." Invega would be an option, but currently the patient is being so uncooperative that our concern would be that he would cheek the oral tablets that we would have to give him first. Accordingly, the new strategy will be to discontinue Abilify, and resume olanzapine with olanzapine IM over objection if necessary. We will begin the olanzapine Zydis 20 mg at bedtime 03/10 -The patient took the prescribed dose of olanzapine Zydis 20 mg at bedtime last night. Today, he tells me that it "did not help at all." However, staff report that he has been somewhat more agreeable, more pleasant, and less paranoid today. -As he has with other providers, today he told me that I should have given him olanzapine 5 mg "to start", and I explained that he was already on olanzapine 20 mg when he came into the hospital and we know that he is able to tolerate that dose. He tells me that he did, in fact tolerate the dose and is not aware of any side effects, but, somewhat illogically, insisted that the dose was "too high for a starting dose." 03/11 - Continue current medication regimen at this time - olanzapine 20mg daily - Encourage participation in the milieu and in group programming as tolerated 03/12 -Continue current medication regimen. The patient's condition has not yet improved. -The patient does participate in select groups, but often tends to be disruptive. 03/13 -Today, the patient seems to be somewhat more cooperative and less frankly delusional. It was possible to engage in a mostly reality based conversation for 5 or 10 minutes at a time. Also, although he was unhappy with me when I refused to provide him with a dose of Valium for anxiety, he was able to remain pleasant and calm at this time, did not storm from the room." 03/14 and 03/15 -no change in medication will work on therapeutic alliance given patient is not participating 03/16 -304 involuntary commitment granted. -Patient remains completely uncooperative with treatment, refused his Zyprexa Zydis last evening, but then ultimately took it before he received the injection. I have a high suspicion for cheeking of antipsychotic medication, and we will continue to be vigilant with mouth checks, and work towards a long- acting injectable. 03/17 -Patient has been on Zyprexa 20 mg at bedtime for 1 week, with limited response. He is refusing to discuss other medication options. Per records, he has been prescribed up to 30 mg olanzapine in the past, so will increase his dose to this previously tolerated dose, as it is 1 of the few medications he has been willing to take. Continue IM backup for refusal, and Zyprexa Zydis formulation to decrease risk of cheeking. He is not compliant with mouth checks, but have asked staff to try to observe him for 10 minutes after taking the Zydis to ensure he is not spitting it out before it dissolves. 03/18 -Continue Zyprexa Zydis 30 mg at bedtime with IM backup. Consider switch to a different medication (?oral paliperidone with IM backup) if irritability and agitation continues. He has tried virtually every atypical antipsychotic and reports none of them were effective (although some trials were short due to nonadherence) and has a history of dystonia on haloperidol. Clozapine would be a reasonable choice, but he has been unwilling to even discuss medication option s. -Consider some component of cognitive decline which could be contributing to his worsening presentation and will need to be monitored and worked up further once he is more psychiatrically stable. -Refer to [facility] in the event that he does not improve and long-term inpatient treatment is needed. 03/19 - Proceed with [facility] referral. 03/20 - Continue current medication regimen; patient refused EKG and CXR yesterday - refused again today - Continue attempts to gather information to make a referral to [facility] 03/23 - Proceed with [facility] referral - patient has refused EKG and CXR for multiple attempts. We will send most recent tests available - Continue current medication regimen at this time 03/24 -Attempted to hold diversion meeting with his outpatient [facility], long-term director, and the [facility] MH/ID; patient refused to attend or participate in the meeting. 03/25 - 03/26 - Continue treatment plan as above - no change in patient's condition and he remains unwilling to participate meaningfully in treatment - Continue with [facility] referral 03/27 -The patient has been informed that the plan at this point is to transfer him to [facility] for long-term inpatient psychiatric treatment, given his refusal to adhere with treatment and his associated behaviors in the community when not adherent with psychiatric treatment. -The patient continues to refuse mouth checks after given dosages of Zyprexa Zydis, and there is some question regarding whether he is actually ingesting this medication. He also would not cooperate with laboratory testing. -There has been a question regarding the patient's cognitive functions, and prior to admission he had been taking Aricept. When he does cooperate with this, I have not seen evidence of any substantial cognitive impairment. He may have mild cognitive impairment, but does not fully cooperate with formal cognitive assessment. He easily recalls the names of his providers, the names of the medications he is taking, the names of the various infectious agents that he believes are causing some of his psychiatric symptoms, the names of certain chemicals that he believes will rid him of the reference to infections, and is able to discuss current events such as recent news items. His assertion that he wants to return to his apartment in the community seems belied by his steadfast refusal to cooperate with those interventions I would make it possible for him to return, and there is some suspicion that although the patient remains floridly psychotic he may also be intentionally sabotaging discharge. 03/28 - 03/30 -There is been no private branch exchange installer the past 2 weeks, and long-term inpatient treatment at the [facility] is indicated. 03/31 - Continue current medication regimen - Pt briefly verbalized willingness for FARAH, but was not agreeable to medication adjustments to allow for this to be possible - If he should change his mind; recommendation is for trial of Invega orally to establish tolerability, then consideration for Invega Sustenna - unwilling for this today 04/01 - 04/03 - Continue current medication regimen - Continues to refuse FARAH, will continue discussion daily as this is the reported preference of his CRR 04/04 -Questionable positive PPD measuring 13 mm but history of confinement places him at higher risk. Patient refused chest x-ray today but we will reapproach. No active symptoms of infection. Order for sputum culture and smear today for confirmation. 04/05 -PPD now appears negative. Would suggest follow through with sputum smear and culture for confirmation as previously ordered -Continue treatment plan as above 04/06 - PPD reportedly negative, patient unable to follow-up with sputum smear - therefore discontinued - Continue medication regimen as above - unwilling to discuss conversion to an FARAH - Meeting today with representation from [facility] to discuss discharge planning 04/07 - Continue medication regimen as above - remains unwilling to discuss changes - Additional meeting with CRR and CM scheduled for next week - We have been regularly assessing patient's condition and appropriateness to go outside since his 30-day treatment plan review. As patient continues to be unwilling to participate in a meaningful conversation with providers regarding his condition, we continue to be unable to determine if he is appropriate to be taken off the unit - therefore will await ability to discuss the topic in a meaningful way prior to making this determination. Will continue regular evaluation. 04/08 - 04/12 - Continue current medication regimen, as patient unwilling to discuss changes - Attempted again to determine if appropriate to go outside, patient unwilling to participate in conversation despite being told the goal of allowing him to go outside - Meeting with CM and CRR director scheduled for 04/13 at 1030 04/13 - Continue Zyprexa 30mg daily - unwilling to engage in conversation to discuss changes - Remains unwilling to engage in conversation to determine if he is appropriate to go outside, he has been made aware this is a possibility for him - Meeting for attempted diversion resulted in decision to no longer hold patient's [facility] bed, [facility] admission is supported based on little to no improvement since admission and limited willingness to engage in conversations regarding medication adjustments - We have been asked to attempt to get a QuantiFERON-TB Gold Plus test, despite negative PPD reading within acceptable timeframe - pt unwilling to engage in conversation to obtain consent, further indicating why long-term inpatient psychiatric hospitalization is necessary. Will continue to attempt to gain consent for this testing to be completed 04/15 -The patient is slightly more communicative today and that he does answer at least one question which was whether he would be in agreement if we offered him a drug holiday from olanzapine. His response was in the affirmative.. He also said "thank you." -The patient continues to appear suspicious and he clearly is angry at and unwilling to cooperate with staff. He is particularly bumptious with individuals who he sees as not fully trained and fully qualified. -The plan remains transfer to the [facility] for long-term psychiatric care. Our hope remains that we will be able to divert the patient from the [facility] hospital, but the patient, as noted above, remains uncommunicative and resistant. Perhaps contributing to the patient's obvious anger and distress is the fact that he has learned this week that his residential program is unwilling to allow him to return and has stopped holding his bed for other individuals. 04/16 - Continue current treatment plan, which includes holiday from olanzapine as a rapport building attempt, and due to concerns that he is more irritable and resistant to treatment - which is obviously not beneficial for his overall condition. - Attempted to communicate with the patient today via written/printed text - will add addendum to this note if patient was willing to complete the sheet and respond to questions 04/21 -Patient remains uncooperative and unwilling to participate in interviews, but has been out of his room more and attending some groups. He remains unwilling to discuss treatment options, including antipsychotic medication. 04/22 - Patient remains unwilling for medications, but is interacting with peers appropriately and attending groups. Will try discontinuing private room and placing him with a roommate, is perhaps increased socialization will be therapeutic for him. 04/23 -no change, patient still unwilling for medications(other than marijuana and benzos) 04/24 -The patient remains angry, suspicious, and largely uncommunicative. He spoke briefly with the attending psychiatrist today in order to request privileges to go outdoors with staff, and was able to cooperate with a fresh air break, but subsequently was angry, bumptious, and willing to cooperate with assessments. 04/25 - Valium 5mg dose yesterday appeared to lead to some disinhibited verbally agitated behavior, with the Valium dose being discontinued following that one dose. Pt is fixated on Valium and on temazepam. refusal to take other medications with. Handling a roommate decently currently. Pt refusing to attend groups. Limited engagement with peers and staff occurring. no change to plan today 04/26 no change to plan today 04/27 -The patient cooperated with an interview today after several weeks of flatly refusing, sometimes rudely refusing to speak to providers. Today, the patient not voiced any delusional material and was able to specifically answer questions regarding perceptual disturbances. 04/28 -no change. 04/29 -start ziprasidone 20 mg twice daily with meals. Reviewed risks, benefits and common side effects including sedation and the need to take with food. 04/30 maintained ziprasidone at current dose today given pt's tendency to refuse medications mikey if notice any s/e, considering raising dose tomorrow 05/01 -Based on the patient's behavior today there seems to be no evidence that the patient is enjoying any particular benefit from ziprasidone. To the contr timoteo, he may have become more bumptious and withdrawn. My recommendation is that we continue to observe him on ziprasidone 20 mg twice a day before increasing his dose further, possibly over the weekend. 05/02 -continue current medication and consider dose increase next week. It is likely that it will take weeks to show benefit from antipsychotic medication given the severity and chronicity of his symptoms, and his history of treatment resistance. He would be a good candidate for clozapine, but has never been willing to consider it. 05/03 -increase ziprasidone to 40 mg twice daily with food. Continue to encourage group attendance. 05/04 - Continue recently increased dose of ziprasidone 40mg BID with food 05/05 - Continue as above; limited change in presentation at this time 05/06 - Pt agreeable to titrating ziprasidone to 60mg BID, starting with this evening's dose. - Is superficially cooperative with conversation, but remains resistant to unit programming and more in-depth interactions with staff - Continues to be unable/unwilling to discuss status of delusional beliefs; however, appear to be ongoing as patient has reported that he is to be discharge, that there is a court order for him to leave, and that he has an apartment secured to move into - despite not having contact with individuals other than his immigration case manager 05/07 - Continue as above, limited change in presentation 05/08 - Continue as above, consider need for further titration of ziprasidone - Limited change in presentation, but has been superficially pleasant 05/09 - continue as above, considering potential to further titrate ziprasidone 60mg bid with meals, as pt was more willing to engage health technical writer even more then prior times (last seen by this health technical writer about 9 days ago) will maintain as is for now but considering raising to 80mg bid, 05/10 continue plan unchanged 05/11 - Continue ziprasidone at 60mg BID - unwilling to engage in discussion regarding further titration - Would suggest titration to 80mg BID, especially as he has verbalized ongoing delusional beliefs - Continue to engage patient in discussion regarding possible diversion plan; reach out to the [facility] to discuss options and re-evaluate condition 05/12 - Continue as above, patient again unwilling to engage in conversation long enough to discuss medication titration - Consider titration to 80mg BID when able to discuss further, ongoing reported delusions that he is "not sick" and "does not have schizophrenia" 05/13 - Continue as above - patient more agreeable to conversation today, actually meeting with this provider in the office - Ongoing delusional belief that he does not have a diagnosis of schizophrenia, but behaviors not likely to be harmful to patient in the outpatient setting if he is met with adequate supports - Will attempt to schedule meeting to involve county in discussion of possible diversion plan 05/14 - Continue current mediation regimen - Plan is for meeting with case management and [facility] representatives 05/15 to consider diversion planning - Still no word on anticipated bed date from [facility] 05/15 - Continue current medication regimen - Meeting scheduled today at 1200 to discuss possible diversion planning versus attempt to expedite [facility] transfer - No estimated bed date provided 05/16 -Possible diversion to [facility] with further planning to occur on Saturday -Continue medication regimen unchanged 05/17 -Continue treatment plan unchanged 05/18 - 05/20 - Continue current treatment plan - Referral faxed to [facility] housing consideration, patient remains agreeable 05/21 - Pt accepted at [facility] with bed date 05[facility]28. [facility] [facility] prior to discharge as his 304 is nearing completion. Hearing scheduled for 05/28/19. (2) Substance abuse: 02/25 - Pt has reported history of substance abuse, and recommendation has consistently been for avoidance of substances with significant abuse potential. - PDMP queried - most recent prescriptions below - lorazepam 0.5mg #60 tabs for 30 day supply - Dr. Alves - filled 02/12/2019 - alprazolam 0.5mg #90 tabs for 30 day supply - Dr. Lopez - filled 01/16/2019 - temazepam 30mg #30 caps for 30 day supply - Dr. Lopez - filled 01/16/2019 - Will continue lorazepam 0.5mg BID prn on admission, as only medication that is seemingly active - toxicology screen is negative for benzodiazepines, which questions if he has been taking the medication appropriately - Ideally will taper and discontinue the lorazepam, as recommendation remains that substances with abuse potential be avoided 02/26 -The patient's outpatient providers, during a meeting this morning, report that the patient tends to successfully convince physicians to prescribe benzodiazepines for him and that, in the past, he has abused him to the degree that he is practically obtunded. 02/27 -A repeat check of the PDMP reveals that the patient is consistently being prescribed lorazepam 0.5 mg twice daily (number 60/month) by a Dr. Brent Alves. He is also being prescribed alprazolam 0.[address] mg [address] Jeff Lopez, with the most recent previous prescription of alprazolam being on 01/16/[address] Lopez also prescribed temazepam 30 mg capsules #30 on 01/16/2019. According to his residential providers, no temazepam capsules were found among the patient's belongings. His most recent prescription for lorazepam 0.5 mg tablets was filled on 02/12/2019. 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 In the past, he reportedly has used clonazepam and temazepam. -I advised the patient that because of his history of misuse of benzodiazepines we would not be prescribing benzodiazepines during his hospital stay. An as needed order for lorazepam has not been used during hospital stay, and I discontinued the order today. 03/02 - Will need to coordinate care with his PCP and outpatient psychiatrist prior to discharge regarding the above. 03/04 - Charge nurse spoke with the above offices regarding concern for continued benzodiazepine prescriptions - Records will be faxed to their offices on discharge, as all benzodiazepines were discontinued during this hospitalization 03/06 -The patient did not request benzodiazepines and did not complain of anxiety today. I suggested to him that perhaps Abilify is also helping with anxiety in his case, and he responded by saying "perhaps." 03/09 -Today, the patient is insisting that what he needs is "benzodiazepines," and explains that the reason he "needs" benzodiazepines is that he has "benzodiazepine receptors," and that he is the only medications that work. He is unable to process warnings about the risks of benzodiazepines in the elderly, including increased risk of falls and mortality. Clearly, the patient is seeking benzodiazepines and has no insight into the associated risks. He also insists that he has never had trouble with benzodiazepines in the past, although there is well-documented of this. 03/10 -Today, the patient repeated his insistence that he needs benzodiazepines and that benzodiazepines are the only medications that work because he has "benzodiazepine receptors." After being told that everyone has central nervous system receptors to which benzodiazepines may attach, he replied, "That may be, but some of people need to have benzodiazepines forearm benzodiazepine receptors. 03/12 -Continues to request Benzodiazepines. 03/13 -Requests Valium for his "benzodiazepines receptors." 03/27 -Refuses to cooperate with assessment today, but has recently told staff that he needs "either Valium or Ativan." -The patient apparently has no working insight into his history of abuse of prescription medications (benzodiazepines). 04/15 -The patient has not reference to request for benzodiazepines recently. However, the context is that he has not communicated much of anything directly, a other than the occasional need for self-care items. 04/24 -Today, the patient repeats his request for benzodiazepines, and insists that he is "supposed" to be taking diazepam 10 mg 3 times a day and temazepam for sleep every night. 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 Unfortunately, the exact opposite seems to have occurred. Not only was the patient was uncooperative subsequent to a dose of Valium, he seems to have been disinhibited by it and shouting "get out" or "get away" several times when approached by staff 04/25 - pt focused on seeking temazepam, or Valium 04/27 -The patient does have a history of substance dependence. However, the current plan and expected disposition is for the patient to be transferred to an extended care inpatient psychiatric unit where abuse of prescribed medications is unlikely to occur. Today, the patient calmly requests temazepam and says th at he has tried a number of different sleeping pills, but "that is the one that works." The patient is also able to clearly say that he understands that temazepam is physically habituating that there are associated risks associated with temazepam including, but not limited to, a risk of falls, accidents, confusion, and depression. He tells us that at prescribed dosages he has not had any of these problems in the past. -Today, I agreed to a trial of temazepam 15 mg at bedtime, a dose that the patient says has been effective in the past. 04/30 close monitoring of temazepam given above, so far not taken 05/01 -After persistently insisting that he had to have temazepam in order to sleep and that nursing staff reports that he is sleeping through the night are wrong because he tends to rest with his eyes closed, the patient has not ask for temazepam and has not been given temazepam since it was ordered a week ago. The patient declined to explain why he has not ask for it, and refuses to answer questions today as to whether he is sleeping well without. In fact, when asked to explain why he had not taken any after insisting on having a prescribed, he shouted "get the hell out!!." Perhaps the patient has forgotten that it was ordered, but he seemed to remember the day after it was ordered and ask for not asked for it since. Our thought is that he may have somehow incorporated the order for temazepam into his delusional when belief system, based on his rage when asked to explain why he hasn't asked for it. (3) Hypertension: 02/25 - Continue home dose of clonidine 0.1mg qHS 03/01 Watch mildly elevated blood pressures as patient has been refusing clonidine 03/03 - BP normal past two days, and low today 03/10 -The patient's blood pressure today was 136/73. His pulse was 71 03/14 - elevated BP it is not urgent but will need monitored. 03/15 - BP WNL 03/26 - BP continues to be WNL 04/02 - BP remains within normal limits; continue daily vitals per standard admission order set - Will consider acute phase of this problem resolved at this time (4) Acute UTI: 05/19 - Pt awoke with symptoms of urinary retention, pain, and burning; temperature mildly elevated - Urinalysis ordered this AM, which was positive for leukocyte esterase, WBCs, 3+ urine bacteria - Urinalysis also positive for RBC and 3+ urine blood; study from admission (02/23/19) was also positive for trace urine blood - Will begin empiric treatment with nitrofurantoin 100mg BID x 7 days - Urine culture is pending, and treatment course to be adjusted accordingly once results are obtained - Continue to monitor symptoms 05/20 - Pt appearing to be more unstable and somewhat disoriented at times; fever this morning - CBC obtained, showing leukocytosis - CMP showing sodium of 133; pt admittedly not eating well due to physical illness, did consume broth after interview - CK obtained from prior blood sample, as patient had been reporting stiffness to nursing - wnl at 83 - Continue symptomatic treatment: Tylenol for pain/fever, regular hydration/nutrition - Continue ABX as above, sensitivities pending - adjust antibiotic as necessary based on findings - Pt did appear improved later in the afternoon, requesting to shower and appearing more stable on his feet 05/21 - UTI sensitive to nitrofurantoin, complete course. Fever resolved, encourage hydration. - Slight electrolyte abnormalities, encourage good po intake. Leukocyctosis consistent with UTI. CK normal. Risk Factors Assessment Male: Yes : Yes Do You Have Access To A Gun?: No Health Problems: Yes Mental Health Diagnoses: Yes Substance Use Disorders: Yes Protective Factors Assessment Restorationism Beliefs: No : No Responsible for Young Children: No Employed: No Stable Relationships: No Supportive Family: No Good Rapport with Provider: No Absence of Any Risk Factors Above: No Interval History Identifying Information SCOTT ROBERTO is a 74-year-old M who currently lives at a [facility] in [place], has a history of schizophrenia, and is known to our unit from several previous admissions, most recently in 09/2016. He was admitted on 02/24/19 16:40 on a 302 involuntary commitment for exacerbation of schizophrenia and heightened paranoia resulting in belief he needed to hide in a dumpster to seek refuge from impending bombings. He was found by [facility] staff and brought to the ED by police, and is on a 304 involuntary commitment as of 03/16/19. 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 Chief Complaint "Better". Review of Systems Sleep Information Total Hours of Sleep: 7.5 Sleep Comments: pt on q-15 minute checks Meal Information Percent Meal Consumed - Breakfast: 100 Percent Meal Consumed - Lunch: 0 Percent Meal Consumed - Dinner: 100 Nutrition Comment: per meal record Subjective Subjective Patient was seen & assessed and interval progress reviewed with nursing and soc ial work. Staff report patient continues to isolate to his room. He has been accepted at the [facility] with bed date 05/28/19. On my assessment he reports he is feeling better, less confused and steadier on his feet. He denies further urinary incontinence and reports good po intake. He is pleased with the news about the [facility]. Physical Exam Psychiatric Orientation: alert and cooperative Apperance: appropriately dressed and appropriately groomed Eye Contact: good eye contact Motor Behavior: no abnormal motor movements Speech: normal rate/rhythm/volume of speech Affect: euthymic affect "better" Thought Process: goal directed thought process Thought Content: reality based without delusions Suicidal Thoughts: denies suicidal thoughts Homicidal Thoughts: denies homicidal thoughts Hallucinations: no auditory hallucinations Cognition: attention grossly intact and language grossly intact Insight: + fair insight Judgement: + fair judgement Vital Signs (Past 24 Hours) Last Vital Signs Temp 36.8 C 05/21/19 07:00 Pulse 83 05/21/19 07:01 Resp 18 05/21/19 07:00 BP 125/71 05/21/19 07:01 Pulse Ox 93 05/20/19 15:09 Results & Data Current Inpatient Medications Current Inpatient Medications: Current Inpatient Medications Acetaminophen (Tylenol) 650 mg PO Q4H PRN PRN Reason: Headache or Minor Fever Stop: 06/15/19 20:17 Last Admin: 05/20/19 14:24 Dose: 650 mg Documented by: Al Hydrox/Mg Hydrox/Simethicone (Maalox) 30 ml PO Q4H PRN PRN Reason: GI Upset Stop: 06/15/19 20:43 Benztropine Mesylate (Cogentin) 0.5 mg PO BID PRN PRN Reason: dystonia Stop: 06/15/19 20:44 Bismuth Subsalicylate (Kaopectate) 15 ml PO PRN PRN PRN Reason: Loose Stool Stop: 06/15/19 20:44 Clonidine HCl (Catapres) 0.1 mg PO HS MAG Stop: 06/19/19 21:59 Last Admin: 05/20/19 21:26 Dose: 0.1 mg Documented by: Cyanocobalamin (Vitamin B-12) 500 mcg PO DAILY MAG Stop: 06/19/19 08:59 Last Admin: 05/21/19 08:34 Dose: 500 mcg Documented by: Hydroxyzine HCl (Vistaril) 50 mg PO HSZ PRN PRN Reason: Insomnia Stop: 06/15/19 20:45 Hydroxyzine HCl (Vistaril) 25 mg PO Q4H PRN PRN Reason: Anxiety Stop: 06/19/19 08:44 Magnesium Hydroxide (Milk Of Magnesia) 30 ml PO DAILY PRN PRN Reason: Heartburn Stop: 06/15/19 20:45 Magnesium Oxide (Mag-Ox) 400 mg PO DAILY [facility] Stop: 06/19/19 08:59 Last Admin: 05/21/19 08:34 Dose: 400 mg Documented by: Miscellaneous (Remove Nicoderm Patch) 1 ea N/A HS [facility] Stop: 06/19/19 21:59 Last Admin: 05/20/19 21:33 Dose: Not Given Documented by: Multivitamins (Multivitamin Tab) 1 tab PO DAILY [facility] Stop: 06/19/19 08:59 Last Admin: 05/21/19 08:35 Dose: 1 tab Documented by: Nicotine (Nicoderm Cq) 14 mg TD QAM [facility] Stop: 06/19/19 08:59 Last Admin: 05/21/19 08:37 Dose: Not Given Documented by: Nitrofurantoin Macrocrystals (Macrobid) 100 mg PO BID [facility]; Protocol Stop: 05/26/19 13:49 Last Admin: 05/21/19 08:33 Dose: 100 mg Documented by: Olanzapine (Zyprexa) 10 mg IM HS PRN PRN Reason: Undecided Stop: 06/19/19 08:44 Pyridoxine HCl (Vitamin B-6) 100 mg PO DAILY [facility] Stop: 06/19/19 08:59 Last Admin: 05/21/19 08:34 Dose: 100 mg Documented by: Sodium Chloride ([place] Nasal) 1 - 2 sprays NA PRN PRN PRN Reason: Nasal Dryness/Congestion Stop: 06/19/19 08:49 Ziprasidone (Geodon) 60 mg PO BIDM [facility] Stop: 06/19/19 08:59 Last Admin: 05/21/19 17:26 Dose: 60 mg Documented by: Mental Health & Subst Abuse Tx Psychiatrist Name of Psychiatrist: [facility] - Dr. Alves Psychiatrist's Psychiatric Appointment Comment: [id number], [place] [address] Therapist Name of Therapist: [employer] Inspector Mechanical Name of Inspector Mechanical: Shruti Lopez Phone Number for Inspector Mechanical: Case Management Appointment Comment: [phone], [place] [address] Post Discharge Appointments Primary Care Physician Name Of Family Doctor: [facility] - Dr. Lopez Primary Care Provider Appointment Comment: [address], [address], [place] [address] Contact Information Discharge Discharge Address: [address] [place] [address], [place] [address] CPT Code CPT Code 50658 (1) Schizophrenia Schizophrenia type: paranoid schizophrenia Qualified Code(s): F20.0 - Paranoid schizophrenia (2) Hypertension Hypertension type: essential hypertension Qualified Code(s): I10 - Essential (primary) hypertension
[2019-05-21] MEDS: cloNIDine HCL 0.1 MG TAB PO SCH (21:27)
[2019-05-22] MEDS: MULTIVITAMIN TAB PO SCH (08:46)
[2019-05-22] MEDS: PYRIDOXINE HCL 50 MG TAB PO SCH (08:46)
[2019-05-22] MEDS: CYANOCOBALAMIN 500 MCG TABLET (VITAMIN B-12) PO SCH (08:46)
[2019-05-22] MEDS: ZIPRASIDONE HCL 20 MG CAP PO SCH ×2 (08:46→17:10)
[2019-05-22] MEDS: NITROFURANTOIN MONOHYDRATE 100 MG CAP PO SCH ×2 (08:46→21:14)
[2019-05-22] MEDS: MAGNESIUM OXIDE 400 MG TAB PO SCH (08:46)
[2019-05-22] MEDS: NICOTINE 14 MG/24 HR PATCH TD SCH (08:48)
--- NOTE | 2019-05-22 14:10 | Psychiatric Progress Note ---
Date of Service May 22, 2019 Impression / Recommendations Impression Patient's diagnosis of schizophrenia is chronic, but he has been demonstrating improvements in condition in the past few weeks, and has remained compliant with ziprasidone 60mg BID. Pt has been pleasant during interactions with staff and has been attending more groups. There has been no contact from [facility] regarding a possible bed date, and due to improvement observed a diversion meeting was held. [facility] has bed availability and has accepted the patient to their facility. Pt is to be transferred to the [facility] after a 305 hearing scheduled fro 05/25/19. Given the chronicity and severity of the patient's condition, it is important that supervision be maintained after discharge to ensure medication compliance and appropriate behavior. (1) Schizophrenia: 02/25 - Continue home medication regimen - as refusing offerings of his antipsychotic, will likely require olanzapine IM (or alternative agent) over objection, given clear evidence of paranoia and delusional thought process - previously stabilized on this medication - Pt agreeable to taking all other medications, with exception of antipsychotic as mentioned above - Admitted to a locked inpatient behavioral health unit, on q15 minute safety checks - Encourage medication initiation/adjustments as indicated - Encourage participation in group and recreational therapies - Gather collateral information from outpatient providers and long-term staff - Suggest family meeting to involve outpatient supports in safety planning - Reschedule appropriate aftercare appointments 02/26 -Patient indicates willingness to sign a release for the [facility] long-term, will get collateral from their staff. -File for 303 involuntary commitment to be held tomorrow. -Recommend medications over objection, with an IM Zyprexa backup for refusal of oral medication. Involve outpatient treatment team to discuss ways to improve stability and compliance; consider long-acting injectable antipsychotic. -Order fasting labs for monitoring on an atypical antipsychotic once patient is more cooperative. 02/27 -The patient was retrained at his involuntary commitment hearing (303) this morning. -He has continuously and consistently refused psychiatric medications to date. However, today, when I explained that that a option that might become necessary in his case is medication over objection, and an intramuscular form, the patient said that he understood and that he would try medications that I prescribe. His initial preference would be olanzapine, but because olanzapine is not available in a long acting depot form, we would first like to try aripiprazole. He indicates that he is taken aripiprazole in the past and has been able to tolerate it, although he does not believe that it has been particularly helpful. -A trial dose of aripiprazole 15 mg by mouth, as a one-time dose, has been ordered and he assessed for efficacy. 02/28 -Appears to be tolerating initiation of Abilify so far. Remains delusional, paranoid. May consider further titration tomorrow -Aricept discontinued at patient's request on 02/27/2019. The medication has not been demonstrated to be efficacious for cognitive impairment associated with long-standing schizophrenia however we should be vigilant for slowing of mentation following discontinuation. 03/01 Patient fixated and irrational regarding access to clothing item as above today. Hospital environment becoming incorporated and delusions. Consider possibility that the aripiprazole is contributing to activation. We will increase to 20 mg tomorrow and also start Risperdal 1 mg p.o. twice daily as as needed. 03/02 - Continue with aripiprazole at 20mg daily, consider need for further titration - if tolerating and effective, eventual plan will be for conversion to Abilify Maintena - Pt has not yet utilized risperidone 03/03 - Increase aripiprazole to 25mg (equivalent to 30mg pill) and change to liquid formulation to decrease risk of cheeking/nonadherence, as patient does not believe he needs medication and had been noncompliant prior to hospitalization. - Fasting glucose and lipid profile ordered for tomorrow for monitoring on an atypical antipsychotic. - Private room due to psychosis, agitation, and inappropriate disrobing/sexual behavior. - Meeting with BCM and CRR staff when patient able to tolerate. 03/04 - Continue aripiprazole 25mg liquid (30mg pill equivalent) and continue to observe for improvement in thought process/content - consider conversion to Maintena if effective, versus trial of another agent if improvement remains limited - Fasting labs reviewed - all values WNL - Continue medically necessary private room - Request meeting with CRR staff, in order to obtain details about patient's proximity to baseline 03/05 -Patient refusing liquid aripiprazole, but agrees to take the pill: Ordered 30 mg daily. -Schedule meeting with his disability case manager, CRR and psych rehab staff. Consider involuntary outpatient commitment at the time of discharge. 03/06 -The patient has improved in that he is more reality based at this point. He continues to harbor fixed, systematized delusions, but is generally able to f ocus on reality based topics. -Although the patient tells me that he does not feel that aripiprazole has been effective, he is able to accept my opinion in the opinion of the staff that he has improved in response to aripiprazole. -The patient's main objection to aripiprazole oral solution is that he does not like the way it tastes, and within this context, he tells us that he is willing to accept Abilify Maintenaand requests that it be injected into his buttock. Abilify Maintena 300 mg IM ordered, and oral Abilify discontinued. We will resume oral Abilify if the patient subsequently changes his mind and refuses the injection. 03/07 resuming Abilify oral given his refusal of FARAH form of Abilify 03/08 is taking Abilify po form but refusing Abilify Maintena form. advise close monitoring for potential of checking given pt's tendency to not want to take medications. 03/09 -The patient is flatly refusing to take aripiprazole in the form of Abilify Maintena. He is also been hesitant to take oral Abilify, but has been doing so. -The patient's lack of cooperation is thought possibly to be related to an un-expressed desire to not be discharged back to the community. He told me today that he left his meeting with his community providers after a few seconds because "just the side of them made me extremely anxious. My pulse elevated to 140." Later, he told me that he was still anxious about it and his pulse was "still around 130." The patient allowed me to take his pulse, and it was approximately 76. At that point he said, "did I say pulse? I meant systolic blood pressure." And when I pointed out that his systolic blood pressure of 130 is not considered to be a particular concern, he said "I mean diastolic." -Our hope had been that the patient would agree to accept a Depo form of medication. He was refusing Haldol Decanoate because of various side effects. Risperidone constant was ruled out as a first-line Depo medication because of the frequency of administration (the patient tends to get into power struggles over medications) and because he says that he is sensitive to "big needles." Invega would be an option, but currently the patient is being so uncooperative that our concern would be that he would cheek the oral tablets that we would have to give him first. Accordingly, the new strategy will be to discontinue Abilify, and resume olanzapine with olanzapine IM over objection if necessary. We will begin the olanzapine Zydis 20 mg at bedtime 03/10 -The patient took the prescribed dose of olanzapine Zydis 20 mg at bedtime last night. Today, he tells me that it "did not help at all." However, staff report that he has been somewhat more agreeable, more pleasant, and less paranoid today. -As he has with other providers, today he told me that I should have given him olanzapine 5 mg "to start", and I explained that he was already on olanzapine 20 mg when he came into the hospital and we know that he is able to tolerate that dose. He tells me that he did, in fact tolerate the dose and is not aware of any side effects, but, somewhat illogically, insisted that the dose was "too high for a starting dose." 03/11 - Continue current medication regimen at this time - olanzapine 20mg daily - Encourage participation in the milieu and in group programming as tolerated 03/12 -Continue current medication regimen. The patient's condition has not yet improved. -The patient does participate in select groups, but often tends to be disruptive. 03/13 -Today, the patient seems to be somewhat more cooperative and less frankly delusional. It was possible to engage in a mostly reality based conversation for 5 or 10 minutes at a time. Also, although he was unhappy with me when I refused to provide him with a dose of Valium for anxiety, he was able to remain pleasant and calm at this time, did not storm from the room." 03/14 and 03/15 -no change in medication will work on therapeutic alliance given patient is not participating 03/16 -304 involuntary commitment granted. -Patient remains completely uncooperative with treatment, refused his Zyprexa Zydis last evening, but then ultimately took it before he received the inject ion. I have a high suspicion for cheeking of antipsychotic medication, and we will continue to be vigilant with mouth checks, and work towards a long-acting injectable. 03/17 -Patient has been on Zyprexa 20 mg at bedtime for 1 week, with limited response. He is refusing to discuss other medication options. Per records, he has been prescribed up to 30 mg olanzapine in the past, so will increase his dose to this previously tolerated dose, as it is 1 of the few medications he has been willing to take. Continue IM backup for refusal, and Zyprexa Zydis formulation to decrease risk of cheeking. He is not compliant with mouth checks, but have asked staff to try to observe him for 10 minutes after taking the Zydis to ensure he is not spitting it out before it dissolves. 03/18 -Continue Zyprexa Zydis 30 mg at bedtime with IM backup. Consider switch to a different medication (?oral paliperidone with IM backup) if irritability and agitation continues. He has tried virtually every atypical antipsychotic and reports none of them were effective (although some trials were short due to nonadherence) and has a history of dystonia on haloperidol. Clozapine would be a reasonable choice, but he has been unwilling to even discuss medication options. -Consider some component of cognitive decline which could be contributing to his worsening presentation and will need to be monitored and worked up further once he is more psychiatrically stable. -Refer to [facility] in the event that he does not improve and long-term inpatient treatment is needed. 03/19 - Proceed with [facility] referral. 03/20 - Continue current medication regimen; patient refused EKG and CXR yesterday - refused again today - Continue attempts to gather information to make a referral to [facility] 03/23 - Proceed with [facility] referral - patient has refused EKG and CXR for multiple attempts. We will send most recent tests available - Continue current medication regimen at this time 03/24 -Attempted to hold diversion meeting with his outpatient [facility], long-term director, and the [facility] MH/ID; patient refused to attend or participate in the meeting. 03/25 - 03/26 - Continue treatment plan as above - no change in patient's condition and he remains unwilling to participate meaningfully in treatment - Continue with [facility] referral 03/27 -The patient has been informed that the plan at this point is to transfer him to [facility] for long-term inpatient psychiatric treatment, given his refusal to adhere with treatment and his associated behaviors in the community when not adherent with psychiatric treatment. -The patient continues to refuse mouth checks after given dosages of Zyprexa Zydis, and there is some question regarding whether he is actually ingesting this medication. He also would not cooperate with laboratory testing. -There has been a question regarding the patient's cognitive functions, and prior to admission he had been taking Aricept. When he does cooperate with this, I have not seen evidence of any substantial cognitive impairment. He may have mild cognitive impairment, but does not fully cooperate with formal cognitive assessment. He easily recalls the names of his providers, the names of the medications he is taking, the names of the various infectious agents that he believes are causing some of his psychiatric symptoms, the names of certain chemicals that he believes will rid him of the reference to infections, and is able to discuss current events such as recent news items. His assertion that he wants to return to his apartment in the community seems belied by his steadfast refusal to cooperate with those interventions I would make it possible for him to return, and there is some suspicion that although the patient remains joanna idly psychotic he may also be intentionally sabotaging discharge. 03/28 - 03/30 -There is been no jacket changer the past 2 weeks, and long-term inpatient treatment at the [facility] is indicated. 03/31 - Continue current medication regimen - Pt briefly verbalized willingness for FARAH, but was not agreeable to medication adjustments to allow for this to be possible - If he should change his mind; recommendation is for trial of Invega orally to establish tolerability, then consideration for Invega Sustenna - unwilling for this today 04/01 - 04/03 - Continue current medication regimen - Continues to refuse FARAH, will continue discussion daily as this is the reported preference of his CRR 04/04 -Questionable positive PPD measuring 13 mm but history of confinement places him at higher risk. Patient refused chest x-ray today but we will reapproach. No active symptoms of infection. Order for sputum culture and smear today for confirmation. 04/05 -PPD now appears negative. Would suggest follow through with sputum smear and culture for confirmation as previously ordered -Continue treatment plan as above 04/06 - PPD reportedly negative, patient unable to follow-up with sputum smear - therefore discontinued - Continue medication regimen as above - unwilling to discuss conversion to an FARAH - Meeting today with representation from [facility] to discuss discharge planning 04/07 - Continue medication regimen as above - remains unwilling to discuss changes - Additional meeting with CRR and CM scheduled for next week - We have been regularly assessing patient's condition and appropriateness to go outside since his 30-day treatment plan review. As patient continues to be unwilling to participate in a meaningful conversation with providers regarding his condition, we continue to be unable to determine if he is appropriate to be taken off the unit - therefore will await ability to discuss the topic in a meaningful way prior to making this determination. Will continue regular evaluation. 04/08 - 04/12 - Continue current medication regimen, as patient unwilling to discuss changes - Attempted again to determine if appropriate to go outside, patient unw illing to participate in conversation despite being told the goal of allowing him to go outside - Meeting with CM and CRR director scheduled for 04/13 at 1030 04/13 - Continue Zyprexa 30mg daily - unwilling to engage in conversation to discuss changes - Remains unwilling to engage in conversation to determine if he is appropriate to go outside, he has been made aware this is a possibility for him - Meeting for attempted diversion resulted in decision to no longer hold patient's CRR bed, [facility] admission is supported based on little to no improvement since admission and limited willingness to engage in conversations regarding medication adjustments - We have been asked to attempt to get a QuantiFERON-TB Gold Plus test, despite negative PPD reading within acceptable timeframe - pt unwilling to engage in conversation to obtain consent, further indicating why long-term inpatient psychiatric hospitalization is necessary. Will continue to attempt to gain consent for this testing to be completed 04/15 -The patient is slightly more communicative today and that he does answer at least one question which was whether he would be in agreement if we offered him a drug holiday from olanzapine. His response was in the affirmative.. He also said "thank you." -The patient continues to appear suspicious and he clearly is angry at and unwilling to cooperate with staff. He is particularly bumptious with individuals who he sees as not fully trained and fully qualified. -The plan remains transfer to the [facility] for long-term psychiatric care. Our hope remains that we will be able to divert the patient from the [facility], but the patient, as noted above, remains uncommunicative and resistant. Perhaps contributing to the patient's obvious anger and distress is the fact that he has learned this week that his residential program is unwilling to allow him to return and has stopped holding his bed for other individuals. 04/16 - Continue current treatment plan, which includes holiday from olanzapine as a rapport building attempt, and due to concerns that he is more irritable and resistant to treatment - which is obviously not beneficial for his overall condition. - Attempted to communicate with the patient today via written/printed text - will add addendum to this note if patient was willing to complete the sheet and respond to questions 04/21 -Patient remains uncooperative and unwilling to participate in interviews, but has been out of his room more and attending some groups. He remains unwilling to discuss treatment options, including antipsychotic medication. 04/22 - Patient remains unwilling for medications, but is interacting with peers appropriately and attending groups. Will try discontinuing private room and placing him with a roommate, is perhaps increased socialization will be therapeutic for him. 04/23 -no change, patient still unwilling for medications(other than marijuana and benzos) 04/24 -The patient remains angry, suspicious, and largely uncommunicative. He spoke briefly with the attending psychiatrist today in order to request privileges to go outdoors with staff, and was able to cooperate with a fresh air break, but subsequently was angry, bumptious, and willing to cooperate with assessments. 04/25 - Valium 5mg dose yesterday appeared to lead to some disinhibited verbally agitated behavior, with the Valium dose being discontinued following that one dose. Pt is fixated on Valium and on temazepam. refusal to take other medications with. Handling a roommate decently currently. Pt refusing to attend groups. Limited engagement with peers and staff occurring. no change to plan today 04/26 no change to plan today 04/27 -The patient cooperated with an interview today after several weeks of flatly refusing, sometimes rudely refusing to speak to providers. Today, the patient not voiced any delusional material and was able to specifically answer questions regarding perceptual disturbances. 04/28 -no change. 04/29 -start ziprasidone 20 mg twice daily with meals. Reviewed risks, benefits and common side effects including sedation and the need to take with food. 04/30 maintained ziprasidone at current dose today given pt's tendency to refuse medications mikey if notice any s/e, considering raising dose tomorrow 05/01 -Based on the patient's behavior today there seems to be no evidence that the patient is enjoying any particular benefit from ziprasidone. To the contrary, he may have become more bumptious and withdrawn. My recommendation is that we continue to observe him on ziprasidone 20 mg twice a day before increasing his dose further, possibly over the weekend. 05/02 -continue current medication and consider dose increase next week. It is likely that it will take weeks to show benefit from antipsychotic medication given the severity and chronicity of his symptoms, and his history of treatment resistance. He would be a good candidate for clozapine, but has never been willing to consider it. 05/03 -increase ziprasidone to 40 mg twice daily with food. Continue to encourage group attendance. 05/04 - Continue recently increased dose of ziprasidone 40mg BID with food 05/05 - Continue as above; limited change in presentation at this time 05/06 - Pt agreeable to titrating ziprasidone to 60mg BID, starting with this evening's dose. - Is superficially cooperative with conversation, but remains resistant to unit programming and more in-depth interactions with staff - Continues to be unable/unwilling to discuss status of delusional beliefs; however, appear to be ongoing as patient has reported that he is to be discharge, that there is a court order for him to leave, and that he has an apartment secured to move into - despite not having contact with individuals other than his disability case manager 05/07 - Continue as above, limited change in presentation 05/08 - Continue as above, consider need for further titration of ziprasidone - Limited change in presentation, but has been superficially pleasant 05/09 - continue as above, considering potential to further titrate ziprasidone 60mg bid with meals, as pt was more willing to engage headline writer even more then prior times (last seen by this headline writer about 9 days ago) will maintain as is for now but considering raising to 80mg bid, 05/10 continue plan unchanged 05/11 - Continue ziprasidone at 60mg BID - unwilling to engage in discussion regarding further titration - Would suggest titration to 80mg BID, especially as he has verbalized ongoing delusional beliefs - Continue to engage patient in discussion regarding possible diversion plan; reach out to the county to discuss options and re-evaluate condition 05/12 - Continue as above, patient again unwilling to engage in conversation long enough to discuss medication titration - Consider titration to 80mg BID when able to discuss further, ongoing reported delusions that he is "not sick" and "does not have schizophrenia" 05/13 - Continue as above - patient more agreeable to conversation today, actually meeting with this provider in the office - Ongoing delusional belief that he does not have a diagnosis of schizophrenia, but behaviors not likely to be harmful to patient in the outpatient setting if he is met with adequate supports - Will attempt to schedule meeting to involve [facility] in discussion of possible diversion plan 05/14 - Continue current mediation regimen - Plan is for meeting with case management and [facility] representatives 05/15 to consider diversion planning - Still no word on anticipated bed date from [facility] 05/15 - Continue current medication regimen - Meeting scheduled today at 1200 to discuss possible diversion planning versus attempt to expedite [facility] transfer - No estimated bed date provided 05/16 -Possible diversion to R with further planning to occur on Saturday -Continue medication regimen unchanged 05/17 -Continue treatment plan unchanged 05/18 - 05/20 - Continue current treatment plan - Referral faxed to [facility] housing consideration, patient remains agreeable 05/21 - Pt accepted at [facility] with bed date 05/28. Coordinated w/ [facility] who request he be placed on a 305 commitment prior to discharge as his 304 is nearing completion. Hearing scheduled for 05/28/19. 05/22 - Continue above treatment plan - Pt's 305 hearing is scheduled for the morning of 05/25/19, plan is for patient to be discharged to the [facility] after this hearing (2) Substance abuse: 02/25 - Pt has reported history of substance abuse, and recommendation has consistently been for avoidance of substances with significant abuse potential. - PDMP queried - most recent prescriptions below - lorazepam 0.5mg #60 tabs for 30 day supply - Dr. Alves - filled 02/12/2019 - alprazolam 0.5mg #90 tabs for 30 day supply - Dr. Lopez - filled 01/16/2019 - temazepam 30mg #30 caps for 30 day supply - Dr. Lopez - filled 01/16/2019 - Will continue lorazepam 0.5mg BID prn on admission, as only medication that is seemingly active - toxicology screen is negative for benzodiazepines, which questions if he has been taking the medication appropriately - Ideally will taper and discontinue the lorazepam, as recommendation remains that substances with abuse potential be avoided 02/26 -The patient's outpatient providers, during a meeting this morning, report that the patient tends to successfully convince physicians to prescribe benzodiazepines for him and that, in the past, he has abused him to the degree that he is practically obtunded. 02/27 -A repeat check of the PDMP reveals that the patient is consistently being prescribed lorazepam 0.5 mg twice daily (number 60/month) by a Dr. Brent Alves. He is also being prescribed alprazolam 0.[address] mg [address] Jeff Lopez, with the most recent previous prescription of alprazolam being on 01/16/[address] Lopez also prescribed temazepam 30 mg capsules #30 on 01/16/2019. According to his residential providers, no temazepam capsules were found among the patient's belongings. His most recent prescription for lorazepam 0.5 mg tablets was filled on 02/12/2019. 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 In the past, he reportedly has used clonazepam and temazepam. -I advised the patient that because of his history of misuse of benzodiazepines we would not be prescribing benzodiazepines during his hospital stay. An as needed order for lorazepam has not been used during hospital stay, and I discontinued the order today. 03/02 - Will need to coordinate care with his PCP and outpatient psychiatrist prior to discharge regarding the above. 03/04 - Charge nurse spoke with the above offices regarding concern for continued benzodiazepine prescriptions - Records will be faxed to their offices on discharge, as all benzodiazepines were discontinued during this hospitalization 03/06 -The patient did not request benzodiazepines and did not complain of anxiety today. I suggested to him that perhaps Abilify is also helping with anxiety in his case, and he responded by saying "perhaps." 03/09 -Today, the patient is insisting that what he needs is "benzodiazepines," and explains that the reason he "needs" benzodiazepines is that he has "benzodiazepine receptors," and that he is the only medications that work. He is unable to process warnings about the risks of benzodiazepines in the elderly, including increased risk of falls and mortality. Clearly, the patient is seeking benzodiazepines and has no insight into the associated risks. He also insists that he has never had trouble with benzodiazepines in the past, although there is well-documented of this. 03/10 -Today, the patient repeated his insistence that he needs benzodiazepines and that benzodiazepines are the only medications that work because he has "benzodiazepine receptors." After being told that everyone has central nervous system receptors to which benzodiazepines may attach, he replied, "That may be, but some of people need to have benzodiazepines forearm benzodiazepine receptors. 03/12 -Continues to request Benzodiazepines. 03/13 -Requests Valium for his "benzodiazepines receptors." 03/27 -Refuses to cooperate with assessment today, but has recently told staff that he needs "either Valium or Ativan." -The patient apparently has no working insight into his history of abuse of prescription medications (benzodiazepines). 04/15 -The patient has not reference to request for benzodiazepines recently. However, the context is that he has not communicated much of anything directly, a other than the occasional need for self-care items. 04/24 -Today, the patient repeats his request for benzodiazepines, and insists that he is "supposed" to be taking diazepam 10 mg 3 times a day and temazepam for sleep every night. 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 Unfortunately, the exact opposite seems to have occurred. Not only was the patient was uncooperative subsequent to a dose of Valium, he seems to have been disinhibited by it and shouting "get out" or "get away" several times when approached by staff 04/25 - pt focused on seeking temazepam, or Valium 04/27 -The patient does have a history of substance dependence. However, the current plan and expected disposition is for the patient to be transferred to an extended care inpatient psychiatric unit where abuse of prescribed medications is unlikely to occur. Today, the patient calmly requests temazepam and says that he has tried a number of different sleeping pills, but "that is the one that works." The patient is also able to clearly say that he understands that temazepam is physically habituating that there are associated risks associated with temazepam including, but not limited to, a risk of falls, accidents, confusion, and depression. He tells us that at prescribed dosages he has not had any of these problems in the past. -Today, I agreed to a trial of temazepam 15 mg at bedtime, a dose that the patient says has been effective in the past. 04/30 close monitoring of temazepam given above, so far not taken 05/01 -After persistently insisting that he had to have temazepam in order to sleep and that nursing staff reports that he is sleeping through the night are wrong because he tends to rest with his eyes closed, the patient has not ask for temazepam and has not been given temazepam since it was ordered a week ago. The patient declined to explain why he has not ask for it, and refuses to answer questions today as to whether he is sleeping well without. In fact, when asked to explain why he had not taken any after insisting on having a prescribed, he shouted "get the hell out!!." Perhaps the patient has forgotten that it was ordered, but he seemed to remember the day after it was ordered and ask for not asked for it since. Our thought is that he may have somehow incorporated the order for temazepam into his delusional when belief system, based on his rage when asked to explain why he hasn't asked for it. (3) Hypertension: 02/25 - Continue home dose of clonidine 0.1mg qHS 03/01 Watch mildly elevated blood pressures as patient has been refusing clonidine 03/03 - BP normal past two days, and low today 03/10 -The patient's blood pressure today was 136/73. His pulse was 71 03/14 - elevated BP it is not urgent but will need monitored. 03/15 - BP WNL 03/26 - BP continues to be WNL 04/02 - BP remains within normal limits; continue daily vitals per standard admission order set - Will consider acute phase of this problem resolved at this time (4) Acute UTI: 05/19 - Pt awoke with symptoms of urinary retention, pain, and burning; temperature mildly elevated - Urinalysis ordered this AM, which was positive for leukocyte esterase, WBCs, 3+ urine bacteria - Urinalysis also positive for RBC and 3+ urine blood; study from admission (02/23/19) was also positive for trace urine blood - Will begin empiric treatment with nitrofurantoin 100mg BID x 7 days - Urine culture is pending, and treatment course to be adjusted accordingly once results are obtained - Continue to monitor symptoms 05/20 - Pt appearing to be more unstable and somewhat disoriented at times; fever this morning - CBC obtained, showing leukocytosis - CMP showing sodium of 133; pt admittedly not eating well due to physical illness, did consume broth after interview - CK obtained from prior blood sample, as patient had been reporting stiffness to nursing - wnl at 83 - Continue symptomatic treatment: Tylenol for pain/fever, regular hydration/nutrition - Continue ABX as above, sensitivities pending - adjust antibiotic as necessary based on findings - Pt did appear improved later in the afternoon, requesting to shower and appearing more stable on his feet 05/21 - UTI sensitive to nitrofurantoin, complete course. Fever resolved, encourage hydration. - Slight electrolyte abnormalities, encourage good po intake. Leukocyctosis consistent with UTI. CK normal. 05/22 - As above, symptoms continue to improve Risk Factors Assessment Male: Yes : Yes Do You Have Access To A Gun?: No Health Problems: Yes Mental Health Diagnoses: Yes Substance Use Disorders: Yes Protective Factors Assessment [employer] Beliefs: No : No Responsible for Young Children: No Employed: No Stable Relationships: No Supportive Family: No Good Rapport with Provider: No Absence of Any Risk Factors Above: No Interval History Identifying Information SCOTT ROBERTO is a 74-year-old M who currently lives at a [facility] in [place], has a history of schizophrenia, and is known to our unit from several previous admissions, most recently in 09/2016. He was admitted on 02/24/19 16:40 on a 302 involuntary commitment for exacerbation of schizophrenia and heightened paranoia resulting in belief he needed to hide in a dumpster to seek refuge from impending bombings. He was found by [facility] staff and brought to the ED by police, and is on a 304 involuntary commitment as of 03/16/19. He has been referred to [facility] for long-term treatment. Chief Complaint "Okay, I still have that UTI." Review of Systems Notes Constitutional: denied Cardiovascular: denied Respiratory: denied Gastrointestinal: denied Genitourinary: reports ongoing burning with urination, though admits to improvement Neurological: denied Psychiatric: denies symptoms other than stated above Total of at least 10 systems reviewed, pertinent positives as above and in HPI. Sleep Information Total Hours of Sleep: 7.5 Sleep Comments: pt on q-15 minute checks Meal Information Percent Meal Consumed - Breakfast: 100 Percent Meal Consumed - Lunch: 0 Percent Meal Consumed - Dinner: 100 Nutrition Comment: per meal record Subjective Subjective Patient was seen & assessed and interval progress reviewed with treatment team. Staff reports the patient has been accepted to [facility], and can be transferred as early as 05/25/19. This patient's 304 commitment is reaching its expiration, counting is requested for a [address] prior to the patient's discharge. This has also been scheduled for 05/25/19. Patient was seen today to assess progress since admission. He has been observed to be more interactive with peers today and attending some groups. Patient reports that he is feeling better, but admits "I still have the UTI." Patient reports his only physical complaint at this time is burning with urination. Otherwise, the patient feels much better physically. Patient denies any significant concerns related to mood, and continues to tolerate ziprasidone 60 mg twice daily. Patient states that he is "feeling good" about planned discharge to [facility]. He denies other needs or concerns at this time. Physical Exam Psychiatric Orientation: alert, oriented x 3 and cooperative Apperance: appropriately dressed, appropriately groomed and appeared stated age Appearing much improved today in regard to physical concerns likely related to UTI. More interactive on unit. Eye Contact: good eye contact Motor Behavior: steady gait and station and no abnormal motor movements Speech: normal rate/rhythm/volume of speech (responses remain brief, but pleasant) Affect: + flat affect Mood: no depressed mood ("Feeling pretty good") Thought Process: goal directed thought process and + concrete thought process Thought Content: not paranoid, no delusions and no hopelessness Patient does not verbalize any delusional thoughts during encounter, though these are likely to be underlying given the history of this illness. Suicidal Thoughts: denies suicidal thoughts Homicidal Thoughts: denies homicidal thoughts Hallucinations: no auditory hallucinations and no visual hallucinations Cognition: attention grossly intact and language grossly intact Insight: + limited insight (Likely due to severity of long-term illness, impr oving enough to plan d/c) Judgement: + fair judgement Vital Signs (Past 24 Hours) Last Vital Signs Temp 37 C 05/22/19 07:04 Pulse 73 05/22/19 07:05 Resp 18 05/22/19 07:04 BP 102/55 L 05/22/19 07:05 Pulse Ox 93 05/20/19 15:09 Results & Data Current Inpatient Medications Current Inpatient Medications: Current Inpatient Medications Acetaminophen (Tylenol) 650 mg PO Q4H PRN PRN Reason: Headache or Minor Fever Stop: 06/15/19 20:17 Last Admin: 05/20/19 14:24 Dose: 650 mg Documented by: Al Hydrox/Mg Hydrox/Simethicone (Maalox) 30 ml PO Q4H PRN PRN Reason: GI Upset Stop: 06/15/19 20:43 Benztropine Mesylate (Cogentin) 0.5 mg PO BID PRN PRN Reason: dystonia Stop: 06/15/19 20:44 Bismuth Subsalicylate (Kaopectate) 15 ml PO PRN PRN PRN Reason: Loose Stool Stop: 06/15/19 20:44 Clonidine HCl (Catapres) 0.1 mg PO HS MAG Stop: 06/19/19 21:59 Last Admin: 05/21/19 21:27 Dose: 0.1 mg Documented by: Cyanocobalamin (Vitamin B-12) 500 mcg PO DAILY MAG Stop: 06/19/19 08:59 Last Admin: 05/22/19 08:46 Dose: 500 mcg Documented by: Hydroxyzine HCl (Vistaril) 50 mg PO HSZ PRN PRN Reason: Insomnia Stop: 06/15/19 20:45 Hydroxyzine HCl (Vistaril) 25 mg PO Q4H PRN PRN Reason: Anxiety Stop: 06/19/19 08:44 Magnesium Hydroxide (Milk Of Magnesia) 30 ml PO DAILY PRN PRN Reason: Heartburn Stop: 06/15/19 20:45 Magnesium Oxide (Mag-Ox) 400 mg PO DAILY MAG Stop: 06/19/19 08:59 Last Admin: 05/22/19 08:46 Dose: 400 mg Documented by: Miscellaneous (Remove Nicoderm Patch) 1 ea N/A HS MAG Stop: 06/19/19 21:59 Last Admin: 05/21/19 21:30 Dose: Not Given Documented by: Multivitamins (Multivitamin Tab) 1 tab PO DAILY [facility] Stop: 06/19/19 08:59 Last Admin: 05/22/19 08:46 Dose: 1 tab Documented by: Nicotine (Nicoderm Cq) 14 mg TD QAM MAG Stop: 06/19/19 08:59 Last Admin: 05/22/19 08:48 Dose: Not Given Documented by: Nitrofurantoin Macrocrystals (Macrobid) 100 mg PO BID MAG; Protocol Stop: 05/26/19 13:49 Last Admin: 05/22/19 08:46 Dose: 100 mg Documented by: Olanzapine (Zyprexa) 10 mg IM HS PRN PRN Reason: Undecided Stop: 06/19/19 08:44 Pyridoxine HCl (Vitamin B-6) 100 mg PO DAILY MAG Stop: 06/19/19 08:59 Last Admin: 05/22/19 08:46 Dose: 100 mg Documented by: Sodium Chloride ([place] Nasal) 1 - 2 sprays NA PRN PRN PRN Reason: Nasal Dryness/Congestion Stop: 06/19/19 08:49 Ziprasidone (Geodon) 60 mg PO BIDM MAG Stop: 06/19/19 08:59 Last Admin: 05/22/19 08:46 Dose: 60 mg Documented by: Mental Health & Subst Abuse Tx Psychiatrist Name of Psychiatrist: [facility] - Dr. Alves Psychiatrist's Date of Appointment with Psychiatrist: 05/28/19 Time of Appointment with Psychiatrist: 2:30 p.m. Psychiatric Appointment Comment: [address], [place] [address] Therapist Name of Therapist: Sammy Demand Planner Name of Demand Planner: Shruti Lopez Phone Number for Demand Planner: Case Management Appointment Comment: [id number], [place] [address] Post Discharge Appointments Primary Care Physician Name Of Family Doctor: [facility] - Dr. Lopez Primary Care Date of Appointment with PCP: 05/26/19 Time of Appointment with PCP: 4:10 p.m. Provider Appointment Comment: [phone], [place] [address] Other #1: Name of Aftercare Appointment: JERRELL Harrington Phone Number of Aftercare Appointment: Aftercare Appointment Comment: [address] [place] [address] Contact Information Discharge Discharge Address: [address] [place] [address] Contact Information Comment: [facility] CPT Code CPT Code 29284 (1) Schizophrenia Schizophrenia type: paranoid schizophrenia Qualified Code(s): F20.0 - Paranoid schizophrenia (2) Hypertension Hypertension type: essential hypertension Qualified Code(s): I10 - Essential (primary) hypertension
[2019-05-22] MEDS: cloNIDine HCL 0.1 MG TAB PO SCH (21:14)
[2019-05-23] MEDS: NICOTINE 14 MG/24 HR PATCH TD SCH (08:41)
[2019-05-23] MEDS: NITROFURANTOIN MONOHYDRATE 100 MG CAP PO SCH ×2 (08:41→21:52)
[2019-05-23] MEDS: CYANOCOBALAMIN 500 MCG TABLET (VITAMIN B-12) PO SCH (08:41)
[2019-05-23] MEDS: ZIPRASIDONE HCL 20 MG CAP PO SCH ×2 (08:41→17:10)
[2019-05-23] MEDS: MULTIVITAMIN TAB PO SCH (08:41)
[2019-05-23] MEDS: MAGNESIUM OXIDE 400 MG TAB PO SCH (08:41)
[2019-05-23] MEDS: PYRIDOXINE HCL 50 MG TAB PO SCH (08:42)
--- NOTE | 2019-05-23 12:21 | Psychiatric Progress Note ---
Date of Service May 23, 2019 Impression / Recommendations Impression Patient's diagnosis of schizophrenia is chronic, but he has been demonstrating improvements in condition in the past few weeks, and has remained compliant with ziprasidone 60mg BID. Pt has been pleasant during interactions with staff and has been attending more groups. There has been no contact from [facility] regarding a possible bed date, and due to improvement observed a diversion meeting was held. [facility] has bed availability and has accepted the patient to their facility. Pt is to be transferred to the [facility] after a 305 hearing scheduled fro 05/25/19. Risk Factors Assessment Male: Yes : Yes Do You Have Access To A Gun?: No Health Problems: Yes Mental Health Diagnoses: Yes Substance Use Disorders: Yes Protective Factors Assessment Holiness Beliefs: No : No Responsible for Young Children: No Employed: No Stable Relationships: No Supportive Family: No Good Rapport with Provider: No Absence of Any Risk Factors Above: No Interval History Identifying Information SCOTT ROBERTO is a 74-year-old M who currently lives at a [facility] in [place], has a history of schizophrenia, and is known to our unit from several previous admissions, most recently in 09/2016. He was admitted on 02/24/19 16:40 on a 302 involuntary commitment for exacerbation of schizophrenia and heightened paranoia resulting in belief he needed to hide in a dumpster to seek refuge from impending bombings. He was found by [facility] staff and brought to the ED by police, and is on a 304 involuntary commitment as of 03/16/19. 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 Chief Complaint "I'm fine thank you". Review of Systems Sleep Information Total Hours of Sleep: 8 Sleep Comments: pt on q-15 minute checks Meal Information Percent Meal Consumed - Breakfast: 100 Percent Meal Consumed - Lunch: 100 Percent Meal Consumed - Dinner: 100 Nutrition Comment: per meal record Subjective Subjective Patient was seen & assessed and interval progress reviewed with nursing and social work. no acute issues. physically much improved after UTI. Physical Exam Mental Examination alert, cooperative, actually smiled when declining to meet with me 1-on-1, gait steady, no apparent EPS. Vital Signs (Past 24 Hours) Last Vital Signs Temp 36.5 C 05/23/19 06:00 Pulse 70 05/23/19 06:56 Resp 17 05/23/19 06:00 BP 101/59 L 05/23/19 06:56 Pulse Ox 93 05/20/19 15:09 Results & Data Current Inpatient Medications Current Inpatient Medications: Current Inpatient Medications Acetaminophen (Tylenol) 650 mg PO Q4H PRN PRN Reason: Headache or Minor Fever Stop: 06/15/19 20:17 Last Admin: 05/20/19 14:24 Dose: 650 mg Documented by: Al Hydrox/Mg Hydrox/Simethicone (Maalox) 30 ml PO Q4H PRN PRN Reason: GI Upset Stop: 06/15/19 20:43 Benztropine Mesylate (Cogentin) 0.5 mg PO BID PRN PRN Reason: dystonia Stop: 06/15/19 20:44 Bismuth Subsalicylate (Kaopectate) 15 ml PO PRN PRN PRN Reason: Loose Stool Stop: 06/15/19 20:44 Clonidine HCl (Catapres) 0.1 mg PO HS MAG Stop: 06/19/19 21:59 Last Admin: 05/22/19 21:14 Dose: 0.1 mg Documented by: Cyanocobalamin (Vitamin B-12) 500 mcg PO DAILY MAG Stop: 06/19/19 08:59 Last Admin: 05/23/19 08:41 Dose: 500 mcg Documented by: Hydroxyzine HCl (Vistaril) 50 mg PO HSZ PRN PRN Reason: Insomnia Stop: 06/15/19 20:45 Hydroxyzine HCl (Vistaril) 25 mg PO Q4H PRN PRN Reason: Anxiety Stop: 06/19/19 08:44 Magnesium Hydroxide (Milk Of Magnesia) 30 ml PO DAILY PRN PRN Reason: Heartburn Stop: 06/15/19 20:45 Magnesium Oxide (Mag-Ox) 400 mg PO DAILY MAG Stop: 06/19/19 08:59 Last Admin: 05/23/19 08:41 Dose: 400 mg Documented by: Miscellaneous (Remove Nicoderm Patch) 1 ea N/A HS MAG Stop: 06/19/19 21:59 Last Admin: 05/22/19 21:16 Dose: Not Given Documented by: Multivitamins (Multivitamin Tab) 1 tab PO DAILY MAG Stop: 06/19/19 08:59 Last Admin: 05/23/19 08:41 Dose: 1 tab Documented by: Nicotine (Nicoderm Cq) 14 mg TD QAM MAG Stop: 06/19/19 08:59 Last Admin: 05/23/19 08:41 Dose: Not Given Documented by: Nitrofurantoin Macrocrystals (Macrobid) 100 mg PO BID MAG; Protocol Stop: 05/26/19 13:49 Last Admin: 05/23/19 08:41 Dose: 100 mg Documented by: Olanzapine (Zyprexa) 10 mg IM HS PRN PRN Reason: Undecided Stop: 06/19/19 08:44 Pyridoxine HCl (Vitamin B-6) 100 mg PO DAILY MAG Stop: 06/19/19 08:59 Last Admin: 05/23/19 08:42 Dose: 100 mg Documented by: Sodium Chloride ([place] Nasal) 1 - 2 sprays NA PRN PRN PRN Reason: Nasal Dryness/Congestion Stop: 06/19/19 08:49 Ziprasidone (Geodon) 60 mg PO BIDM MAG Stop: 06/19/19 08:59 Last Admin: 05/23/19 08:41 Dose: 60 mg Documented by: Mental Health & Subst Abuse Tx Psychiatrist Name of Psychiatrist: [facility] - Dr. Alves Psychiatrist's Date of Appointment with Psychiatrist: 05/28/19 Time of Appointment with Psychiatrist: 2:30 p.m. Psychiatric Appointment Comment: [address], [place] [address] Therapist Name of Therapist: Sammy Slurry Control Tender Name of Slurry Control Tender: Shruti Lopez Phone Number for Slurry Control Tender: Date of Appointment with Slurry Control Tender: 05/25/19 Time of Appointment with Slurry Control Tender: 2:45 p.m. Case Management Appointment Comment: Will see you at the [facility] Post Discharge Appointments Primary Care Physician Name Of Family Doctor: [facility] - Dr. Lopez Primary Care Date of Appointment with PCP: 05/26/19 Time of Appointment with PCP: 4:10 p.m. Provider Appointment Comment: [address], [address], [place] [address] Contact Information Discharge Discharge Address: [address] [place] [address], [place] [address] Contact Information Comment: JERRELL BRYAN CPT Code CPT Code 65054
[2019-05-23] MEDS: cloNIDine HCL 0.1 MG TAB PO SCH (21:57)
[2019-05-24] MEDS: NITROFURANTOIN MONOHYDRATE 100 MG CAP PO SCH ×2 (08:47→21:16)
[2019-05-24] MEDS: MAGNESIUM OXIDE 400 MG TAB PO SCH (08:47)
[2019-05-24] MEDS: ZIPRASIDONE HCL 20 MG CAP PO SCH ×2 (08:47→17:10)
[2019-05-24] MEDS: MULTIVITAMIN TAB PO SCH (08:47)
[2019-05-24] MEDS: PYRIDOXINE HCL 50 MG TAB PO SCH (08:48)
[2019-05-24] MEDS: NICOTINE 14 MG/24 HR PATCH TD SCH (08:48)
[2019-05-24] MEDS: CYANOCOBALAMIN 500 MCG TABLET (VITAMIN B-12) PO SCH (08:48)
--- NOTE | 2019-05-24 11:38 | Psychiatric Progress Note ---
Date of Service May 24, 2019 Impression / Recommendations Impression Patient's diagnosis of schizophrenia is chronic, but he has been demonstrating improvements in condition in the past few weeks, and has remained compliant with ziprasidone 60mg BID. Pt has been pleasant during interactions with staff and has been attending more groups. There has been no contact from [facility] regarding a possible bed date, and due to improvement observed a diversion meeting was held. [facility] has bed availability and has accepted the patient to their facility. Pt is to be transferred to the [facility] after a 305 hearing scheduled fro 05/25/19. Continue current plan. Risk Factors Assessment Male: Yes : Yes Do You Have Access To A Gun?: No Health Problems: Yes Mental Health Diagnoses: Yes Substance Use Disorders: Yes Protective Factors Assessment Quaker Beliefs: No : No Responsible for Young Children: No Employed: No Stable Relationships: No Supportive Family: No Good Rapport with Provider: No Absence of Any Risk Factors Above: No Interval History Identifying Information SCOTT ROBERTO is a 74-year-old M who currently lives at a [facility] in [place], has a history of schizophrenia, and is known to our unit from several previous admissions, most recently in 09/2016. He was admitted on 02/24/19 16:40 on a 302 involuntary commitment for exacerbation of schizophrenia and heightened paranoia resulting in belief he needed to hide in a dumpster to seek refuge from impending bombings. He was found by [facility] staff and brought to the ED by police, and is on a 304 involuntary commitment as of 03/16/19. 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 Chief Complaint "mood is an 8". Review of Systems Sleep Information Total Hours of Sleep: 10.25 Sleep Comments: 5 1/4 of the above hours were on evenings. Jamie was up once during the night for a bowl of cereal. Meal Information Percent Meal Consumed - Breakfast: 100 Percent Meal Consumed - Lunch: 100 Percent Meal Consumed - Dinner: 100 Nutrition Comment: per meal record Subjective Subjective Patient was seen & assessed and interval progress reviewed with nursing and social work. He is anticipating discharge. No complaints. Physical Exam Mental Examination The patient presented as alert and cooperative. The patient was casually dressed and groomed. Eye contact was fair. No psychomotor restlessness or agitation was noted. Speech was normal in rate, rhythm, and volume. Affect was mood congruent. The patients mood appeared euthymic. Thought processes were clear, coherent. The patient denied suicidal and homicidal ideation. The patient denied hallucinations and did not appear to be responding to internal stimuli. Vital Signs (Past 24 Hours) Last Vital Signs Temp 36.8 C 05/24/19 06:00 Pulse 80 05/24/19 06:51 Resp 16 05/24/19 06:00 BP 120/69 05/24/19 06:51 Pulse Ox 93 05/20/19 15:09 Results & Data Current Inpatient Medications Current Inpatient Medications: Current Inpatient Medications Acetaminophen (Tylenol) 650 mg PO Q4H PRN PRN Reason: Headache or Minor Fever Stop: 06/15/19 20:17 Last Admin: 05/20/19 14:24 Dose: 650 mg Documented by: Al Hydrox/Mg Hydrox/Simethicone (Maalox) 30 ml PO Q4H PRN PRN Reason: GI Upset Stop: 06/15/19 20:43 Benztropine Mesylate (Cogentin) 0.5 mg PO BID PRN PRN Reason: dystonia Stop: 06/15/19 20:44 Bismuth Subsalicylate (Kaopectate) 15 ml PO PRN PRN PRN Reason: Loose Stool Stop: 06/15/19 20:44 Clonidine HCl (Catapres) 0.1 mg PO HS MAG Stop: 06/19/19 21:59 Last Admin: 05/23/19 21:57 Dose: Not Given Documented by: Cyanocobalamin (Vitamin B-12) 500 mcg PO DAILY MAG Stop: 06/19/19 08:59 Last Admin: 05/24/19 08:48 Dose: 500 mcg Documented by: Hydroxyzine HCl (Vistaril) 50 mg PO HSZ PRN PRN Reason: Insomnia Stop: 06/15/19 20:45 Hydroxyzine HCl (Vistaril) 25 mg PO Q4H PRN PRN Reason: Anxiety Stop: 06/19/19 08:44 Magnesium Hydroxide (Milk Of Magnesia) 30 ml PO DAILY PRN PRN Reason: Heartburn Stop: 06/15/19 20:45 Magnesium Oxide (Mag-Ox) 400 mg PO DAILY MAG Stop: 06/19/19 08:59 Last Admin: 05/24/19 08:47 Dose: 400 mg Documented by: Miscellaneous (Remove Nicoderm Patch) 1 ea N/A HS [facility] Stop: 06/19/19 21:59 Last Admin: 05/23/19 21:58 Dose: Not Given Documented by: Multivitamins (Multivitamin Tab) 1 tab PO DAILY [facility] Stop: 06/19/19 08:59 Last Admin: 05/24/19 08:47 Dose: 1 tab Documented by: Nicotine (Nicoderm Cq) 14 mg TD QAM [facility] Stop: 06/19/19 08:59 Last Admin: 05/24/19 08:48 Dose: Not Given Documented by: Nitrofurantoin Macrocrystals (Macrobid) 100 mg PO BID [facility]; Protocol Stop: 05/26/19 13:49 Last Admin: 05/24/19 08:47 Dose: 100 mg Documented by: Olanzapine (Zyprexa) 10 mg IM HS PRN PRN Reason: Undecided Stop: 06/19/19 08:44 Pyridoxine HCl (Vitamin B-6) 100 mg PO DAILY [facility] Stop: 06/19/19 08:59 Last Admin: 05/24/19 08:48 Dose: 100 mg Documented by: Sodium Chloride ([place] Nasal) 1 - 2 sprays NA PRN PRN PRN Reason: Nasal Dryness/Congestion Stop: 06/19/19 08:49 Ziprasidone (Geodon) 60 mg PO BIDM [facility] Stop: 06/19/19 08:59 Last Admin: 05/24/19 08:47 Dose: 60 mg Documented by: Mental Health & Subst Abuse Tx Psychiatrist Name of Psychiatrist: [facility] - Dr. Alves Psychiatrist's Date of Appointment with Psychiatrist: 05/28/19 Time of Appointment with Psychiatrist: 2:30 p.m. Psychiatric Appointment Comment: [id number], [place] [address] Therapist Name of Therapist: Sammy Fine Arts Teacher Name of Fine Arts Teacher: Shruti Lopez Phone Number for Fine Arts Teacher: Date of Appointment with Fine Arts Teacher: 05/25/19 Time of Appointment with Fine Arts Teacher: 2:45 p.m. Case Management Appointment Comment: Will see you at the [facility] Post Discharge Appointments Primary Care Physician Name Of Family Doctor: [facility] - Dr. Lopez Primary Care Date of Appointment with PCP: 05/26/19 Time of Appointment with PCP: 4:10 p.m. Provider Appointment Comment: [phone], [address], [place] [address] Contact Information Discharge Discharge Address: [address] [place] [address], [place] [address] Contact Information Comment: JERRELL BRYAN CPT Code CPT Code 70096
[2019-05-24] MEDS: cloNIDine HCL 0.1 MG TAB PO SCH (21:17)
[2019-05-25] MEDS: MAGNESIUM OXIDE 400 MG TAB PO SCH (08:31)
[2019-05-25] MEDS: PYRIDOXINE HCL 50 MG TAB PO SCH (08:31)
[2019-05-25] MEDS: MULTIVITAMIN TAB PO SCH (08:31)
[2019-05-25] MEDS: CYANOCOBALAMIN 500 MCG TABLET (VITAMIN B-12) PO SCH (08:31)
[2019-05-25] MEDS: NITROFURANTOIN MONOHYDRATE 100 MG CAP PO SCH (08:31)
[2019-05-25] MEDS: ZIPRASIDONE HCL 20 MG CAP PO SCH (08:31)
[2019-05-25] MEDS: NICOTINE 14 MG/24 HR PATCH TD SCH (08:32)
--- NOTE | 2019-05-25 08:58 | Discharge Summary ---
Date of Service May 25, 2019 History of Present Illness Trey Santiago is a 73-year-old male admitted involuntarily on 02/24/19 due to exacerbation of his schizophrenia and delusional belief causing irrational behavior [facility]. Pt was brought to the ED by police on a 302 warrant after he was reportedly found in a dumpster outside of his [facility] by staff. Pt had reportedly informed staff that the would would be ending in 3 days, and that he had to lie in the dumpster to protect him from bombings from Harpreet. Pt was reportedly combative with staff as they attempted to retrieve him from the dumpster. ED documentation suggests that the patient has not been taking his medication and that he has not been sleeping or eating. Noticeable weight loss is reported, and outpatient pillowcase cutter is documented as saying the patient "has been declining for the past month." Pt did admit to not taking his medications for several days prior to presentation to the ED. 302 Petitioning statement was completed by Khushi Snyder, pertinent sections read: "Trey Santiago has been refusing medications consistently. Trey becomes easily agitated if he does not receive Ativan or Xanax which Trey has a history of abusing addictive medications. ...he is not sleeping at night and refuses to let staff contact Drs that he sees. ...Trey was seen by staff pacing the side walks in the rain...Trey roommate then came to staff with concerns ...and has observed Trey staying up 24 hours staring at the wall having full loud conversations with himself. 15 minutes later staff over hears talking coming from the dumpster. Staff calls 911 and other supports. Trey is...unable to be assessed through his delusions. Trey was combative physically, kicking staff repeatedly in the legs... Trey tells supervisor cytology...'If you touch me you will , and your kids will too."' Trey continues to raise his voice to police stating 'someone will today.' Trey has reported...he has 'not slept in 15 days...' Trey will not come out of the dumpster due to the 'chips in his head' 'and the word is ending in 3 days.'" This provider attempted to meet with the patient today to complete his H&P. Pt was found to be pacing the halls and was offered to come speak with this provider. Pt stated he felt uncomfortable as he did not know this provider's qualifications - "are you a board certified psychiatrist? I want you supervisor cytology present." Pt was informed that this provider is a board certified Physician Transfer Engineer working in psychiatry and that his case would be reviewed with the psychiatrist who will also be meeting with him today. Pt states, "your supervisor cytology needs to be present, I need an accurate report." Pt reports that he has been "tricked by PA's before, you have no education." This provider again informed patient that this provider functions as part of the psychiatric team and that a psychiatrist is available as well. Pt goes on to state that he does not trust any providers and is not sure that he will speak with our psychiatrist either. Pt was offered a visit later in the afternoon, which he refuses at this time. He is unwilling to cooperate with assessment to determine extent of his delusional beliefs at this time, or to evaluate for presence of SI or HI (though he denied in the ED prior to admission). Pt abruptly ends conversation with this provider by walking away. Physical Exam Psychiatric Orientation: alert and cooperative Apperance: appropriately dressed, appropriately groomed and appeared stated age Eye Contact: + fair eye contact Motor Behavior: steady gait and station and no abnormal motor movements Speech: normal rate/rhythm/volume of speech Minimal Affect: + blunted affect "Good." Thought Process: goal directed thought process Thought Content: reality based without delusions Suicidal Thoughts: denies suicidal thoughts Homicidal Thoughts: denies homicidal thoughts Hallucinations: no auditory hallucinations and no visual hallucinations Cognition: recent memory grossly intact, attention grossly intact and language grossly intact Insight: + limited insight Judgement: + limited judgement Vital Signs (Past 24 Hours) Last Vital Signs Temp 36.8 C 05/25/19 06:53 Pulse 72 05/25/19 06:53 Resp 18 05/25/19 06:53 BP 116/69 05/25/19 06:53 Pulse Ox 93 05/20/19 15:09 Principal Diagnosis Schizophrenia Nonadherence with treatment Benzodiazepine use disorder Cannabis use disorder Psychiatric Data The patient was hospitalized on our unit for 90 days. He was initially restarted on his home dose of olanzapine, but refused it. Benzodiazepines were discontinued as they appear to have been disinhibiting and contributed to his erratic behavior prior to hospitalization. He later agreed to a trial of aripiprazole, which was increased to a total of 25 mg daily. He was given the liquid formulation due to concerns for cheeking, but it was not sufficiently effective, so was discontinued. He was often hesitant or unwilling to take oral medications, and expressed belief that he did not have schizophrenia, or at other times that he had schizophrenia but that the only treatment was bizarre interventions, such as methylene blue. He continued to endorse delusions, but appeared less preoccupied with them as hospitalization progressed. He would at times agreed to a long-acting injectable, but when it came time to administer the shot, would refuse it. He was placed back on olanzapine 20 mg at bedtime for a time, as he was refusing all other antipsychotics, but had limited response, so the dose was increased to 30 mg. He refused mouth checks, and there was concern for cheeking. He was refusing Aricept and requested that it be discontinued, and as it has not been shown to be effective for cognitive impairment associated with chronic schizophrenia, it was stopped. He was transitioned to a 303 and then a 304 involuntary commitment, and due to ongoing unwillingness to participate in treatment or take an antipsychotic, [facility] and was accepted 04/02/2019, but a bed date was never given. Multiple meetings were held with his outpatient pillowcase cutter, [facility] staff, and [facility] ID to discuss treatment planning and the possibility of diversion. He ultimately lost his bed at the [facility] as they were not supporting diversion given his lack of progress and continued nonadherence with treatment. He had an extended period of time during which he refused to talk to, acknowledge, or interact with clinicians, and was on no psychotropic medications. He had a brief trial of diazepam, which appeared to be disinhibiting, as he was verbally agitated; it was discontinued. He was started on ziprasidone on 04/29/2019, and it was titrated to 60 mg twice daily which he tolerated well. He became less irritable and more cooperative and engaged in treatment, began attending some groups, and was more pleasant and appropriate in his interactions with others. He was referred to the [facility] and was accepted. Diversion discharge planning meetings were held, and outpatient care scheduled. As he was nearing the end of his 304 involuntary commitment, a 305 hearing was scheduled for the day of discharge. He developed a UTI the week prior to discharge, which was treated with nitrofurantoin. Day of Discharge Assessment The patient reports mood is "good," denies hallucinations, paranoia, and concerns for his safety. He denies suicidal and homicidal thoughts, and feel ready for discharge. He reports ongoing difficulty with sleep, thinks he is getting about 6 hours a night. He is looking forward to going to the [facility], and is glad it is "a new [facility]." He is looking forward to moving in and "getting my things organized." He denies side effects to medications, although maintains that he is not sure that he needs them. He attended his 305 involuntary outpatient commitment hearing, which he did not contest. He has been performing ADLs independently, and has been calm and cooperative with staff. Transition of Care Transition Of Care Record: was reviewed with the patient Advance Directives Advance Directives Information Provided: Yes Advance Directives: No Mental Health Advance Directive: No Advance Directives on File: No Living Will: No Power of Senior Php Web Developer: No Advance Directives Reason:: Declines as Mental Health Visit. Risk Factors Assessment Risk factors were mitigated by admission to the inpatient unit, use of medications to target psychotic symptoms, education about his diagnosis and the recommended treatment, discontinuation of benzodiazepines and coordination of care with outpatient physicians regarding his substance abuse and recommendations to avoid controlled substances, involvement in groups and therapy, coordination of care with his outpatient treatment providers, [facility] and ultimate diversion to the [facility], involvement in groups and therapy, working on healthy coping skills and a discharge safety plan. Male: Yes : Yes Do You Have Access To A Gun?: No Health Problems: Yes Mental Health Diagnoses: Yes Substance Use Disorders: Yes Previous Attempt: No Family History of Suicide: No Previous Psychiatric Hospitalization: Yes Hopelessness: No Smoker: Yes Protective Factors Assessment Voodoo Beliefs: No : No Responsible for Young Children: No Employed: No Stable Relationships: No Supportive Family: No Good Rapport with Provider: Yes Tobacco Cessation at Discharge Tobacco Cessation Medication Prescribed at Discharge: Offered & Pt Refused Total Time Total Time Spent: Greater Than 30 Minutes Total Time Includes: Examination of the patient, Discharge Planning, Medication Reconciliation and Communication with other providers (Commitment hearing) Discharge Data Lab Results 02/23/19 02/23/19 02/23/19 14:15 14:15 14:32 WBC 10.18 RBC 4.94 Hgb 16.5 Hct 46.4 MCV 93.9 MCH 33.4 MCHC 35.6 RDW Std Deviation 46.7 H RDW Coeff of Namita 13.6 Plt Count 270 MPV 9.0 Immature Gran % (Auto) 0.2 Neut % (Auto) 75.9 Lymph % (Auto) 11.0 [place] % (Auto) 11.3 Eos % (Auto) 1.3 Baso % (Auto) 0.3 Immature Gran # (Auto) 0.02 Neut # (Auto) 7.73 H Lymph # (Auto) 1.12 L [place] # (Auto) 1.15 H Eos # (Auto) 0.13 Baso # (Auto) 0.03 Sodium Potassium Chloride Carbon Dioxide Anion Gap BUN Creatinine Est Cr Clr Drug Dosing Est GFR ( Amer) Est GFR (Non-Af Amer) BUN/Creatinine Ratio Glucose Fasting Glucose Calcium Total Bilirubin AST ALT Alkaline Phosphatase Total Creatine Kinase Total Protein Albumin Globulin Albumin/Globulin Ratio Triglycerides Cholesterol LDL Cholesterol, Calc VLDL Cholesterol, Calc HDL Cholesterol Cholesterol/HDL Ratio TSH Urine Color Yellow Urine Appearance Clear Urine pH 7.0 Ur Specific Breese 1.014 Urine Protein Negative Urine Glucose (UA) Negative Urine Ketones Trace H Urine Blood Trace H Urine Nitrite Negative Urine Bilirubin Negative Urine Urobilinogen Negative Ur Leukocyte Esterase Trace H Urine RBC 0-4 Urine WBC 0-5 Ur Epithelial Cells 0-5 Urine Bacteria Negative Hyaline Casts Salicylates Urine Opiates Screen Neg Ur Methadone, Qual Neg Acetaminophen Urine Barbiturates Neg Ur Phencyclidine (PCP) Neg U Amphetamin/Meth Scrn Neg MDMA (Ecstasy) Screen Neg U Benzodiazepines Scrn Neg Ur Cocaine Metabolite Neg U Marijuana (THC) Screen Neg Ethyl Alcohol mg/dL 02/23/19 02/23/19 02/23/19 14:32 14:32 14:32 WBC RBC Hgb Hct MCV MCH MCHC RDW Std Deviation RDW Coeff of Namita Plt Count MPV Immature Gran % (Auto) Neut % (Auto) Lymph % (Auto) [place] % (Auto) Eos % (Auto) Baso % (Auto) Immature Gran # (Auto) Neut # (Auto) Lymph # (Auto) [place] # (Auto) Eos # (Auto) Baso # (Auto) Sodium 140 Potassium 3.7 Chloride 105 Carbon Dioxide 28 Anion Gap 7.0 BUN 15 Creatinine 0.78 Est Cr Clr Drug Dosing Not Reportable Est GFR ( Amer) 104.5 Est GFR (Non-Af Amer) 90.2 BUN/Creatinine Ratio 19.7 Glucose 122 H Fasting Glucose Calcium 9.6 Total Bilirubin 0.6 AST 25 ALT 30 Alkaline Phosphatase 102 Total Creatine Kinase Total Protein 7.5 Albumin 3.7 Globulin 3.8 Albumin/Globulin Ratio 1.0 Triglycerides Cholesterol LDL Cholesterol, Calc VLDL Cholesterol, Calc HDL Cholesterol Cholesterol/HDL Ratio TSH 1.090 Urine Color Urine Appearance Urine pH Ur Specific Breese Urine Protein Urine Glucose (UA) Urine Ketones Urine Blood Urine Nitrite Urine Bilirubin Urine Urobilinogen Ur Leukocyte Esterase Urine RBC Urine WBC Ur Epithelial Cells Urine Bacteria Hyaline Casts Salicylates 3.0 Urine Opiates Screen Ur Methadone, Qual Acetaminophen < 2 L Urine Barbiturates Ur Phencyclidine (PCP) U Amphetamin/Meth Scrn MDMA (Ecstasy) Screen U Benzodiazepines Scrn Ur Cocaine Metabolite U Marijuana (THC) Screen Ethyl Alcohol mg/dL < 3.0 03/04/19 05/19/19 05/20/19 07:35 Unknown 13:25 WBC 15.04 H RBC 4.41 L Hgb 14.4 Hct 41.8 L MCV 94.8 MCH 32.7 MCHC 34.4 RDW Std Deviation 44.9 RDW Coeff of Namita 12.9 Plt Count 193 MPV 8.9 Immature Gran % (Auto) 0.4 Neut % (Auto) 89.3 Lymph % (Auto) 3.4 [place] % (Auto) 6.8 Eos % (Auto) 0.0 Baso % (Auto) 0.1 Immature Gran # (Auto) 0.06 H Neut # (Auto) 13.43 H Lymph # (Auto) 0.51 L [place] # (Auto) 1.03 H Eos # (Auto) 0.00 Baso # (Auto) 0.01 Sodium Potassium Chloride Carbon Dioxide Anion Gap BUN Creatinine Est Cr Clr Drug Dosing Est GFR ( Amer) Est GFR (Non-Af Amer) BUN/Creatinine Ratio Glucose Fasting Glucose 83 Calcium Total Bilirubin AST ALT Alkaline Phosphatase Total Creatine Kinase Total Protein Albumin Globulin Albumin/Globulin Ratio Triglycerides 141 Cholesterol 163 LDL Cholesterol, Calc 88 VLDL Cholesterol, Calc 28 HDL Cholesterol 47 Cholesterol/HDL Ratio 4 TSH Urine Color Yue Urine Appearance Cloudy A Urine pH 6.5 Ur Specific Breese 1.025 Urine Protein 3+ H Urine Glucose (UA) Negative Urine Ketones Trace H Urine Blood 3+ H Urine Nitrite Negative Urine Bilirubin Negative Urine Urobilinogen Negative Ur Leukocyte Esterase 1+ H Urine RBC >30 H Urine WBC >30 H Ur Epithelial Cells 5-10 H Urine Bacteria 3+ H Hyaline Casts 0-5 Salicylates Urine Opiates Screen Ur Methadone, Qual Acetaminophen Urine Barbiturates Ur Phencyclidine (PCP) U Amphetamin/Meth Scrn MDMA (Ecstasy) Screen U Benzodiazepines Scrn Ur Cocaine Metabolite U Marijuana (THC) Screen Ethyl Alcohol mg/dL 05/20/19 05/20/19 13:25 13:25 WBC RBC Hgb Hct MCV MCH MCHC RDW Std Deviation RDW Coeff of Namita Plt Count MPV Immature Gran % (Auto) Neut % (Auto) Lymph % (Auto) [place] % (Auto) Eos % (Auto) Baso % (Auto) Immature Gran # (Auto) Neut # (Auto) Lymph # (Auto) [place] # (Auto) Eos # (Auto) Baso # (Auto) Sodium 133 L Potassium 3.6 Chloride 100 Carbon Dioxide 23 Anion Gap 10.0 BUN 19 H Creatinine 0.84 Est Cr Clr Drug Dosing 64.6 Est GFR ( Amer) 100.7 Est GFR (Non-Af Amer) 86.9 BUN/Creatinine Ratio 23.0 H Glucose 102 H Fasting Glucose Calcium 9.1 Total Bilirubin 1.2 H AST 15 ALT 24 Alkaline Phosphatase 97 Total Creatine Kinase 83 Total Protein 7.0 Albumin 3.1 L Globulin 3.9 Albumin/Globulin Ratio 0.8 L Triglycerides Cholesterol LDL Cholesterol, Calc VLDL Cholesterol, Calc HDL Cholesterol Cholesterol/HDL Ratio TSH Urine Color Urine Appearance Urine pH Ur Specific Breese Urine Protein Urine Glucose (UA) Urine Ketones Urine Blood Urine Nitrite Urine Bilirubin Urine Urobilinogen Ur Leukocyte Esterase Urine RBC Urine WBC Ur Epithelial Cells Urine Bacteria Hyaline Casts Salicylates Urine Opiates Screen Ur Methadone, Qual Acetaminophen Urine Barbiturates Ur Phencyclidine (PCP) U Amphetamin/Meth Scrn MDMA (Ecstasy) Screen U Benzodiazepines Scrn Ur Cocaine Metabolite U Marijuana (THC) Screen Ethyl Alcohol mg/dL Hospital Course (1) Schizophrenia: 02/25 - Continue home medication regimen - as refusing offerings of his antipsychotic, will likely require olanzapine IM (or alternative agent) over objection, given clear evidence of paranoia and delusional thought process - previously stabilized on this medication - Pt agreeable to taking all other medications, with exception of antipsychotic as mentioned above - Admitted to a locked inpatient behavioral health unit, on q15 minute safety checks - Encourage medication initiation/adjustments as indicated - Encourage participation in group and recreational therapies - Gather collateral information from outpatient providers and penitentiary staff - Suggest family meeting to involve outpatient supports in safety planning - Reschedule appropriate aftercare appointments 02/26 -Patient indicates willingness to sign a release for the [facility], will get collateral from their staff. -File for 303 involuntary commitment to be held tomorrow. -Recommend medications over objection, with an IM Zyprexa backup for refusal of oral medication. Involve outpatient treatment team to discuss ways to improve stability and compliance; consider long-acting injectable antipsychotic. -Order fasting labs for monitoring on an atypical antipsychotic once patient is more cooperative. 02/27 -The patient was retrained at his involuntary commitment hearing (303) this morning. -He has continuously and consistently refused psychiatric medications to date. However, today, when I explained that that a option that might become necessary in his case is medication over objection, and an intramuscular form, the patient said that he understood and that he would try medications that I prescribe. His initial preference would be olanzapine, but because olanzapine is not available in a long acting depot form, we would first like to try aripiprazole. He indicates that he is taken aripiprazole in the past and has been able to tolerate it, although he does not believe that it has been p articularly helpful. -A trial dose of aripiprazole 15 mg by mouth, as a one-time dose, has been ordered and he assessed for efficacy. 02/28 -Appears to be tolerating initiation of Abilify so far. Remains delusional, paranoid. May consider further titration tomorrow -Aricept discontinued at patient's request on 02/27/2019. The medication has not been demonstrated to be efficacious for cognitive impairment associated with long-standing schizophrenia however we should be vigilant for slowing of mentation following discontinuation. 03/01 Patient fixated and irrational regarding access to clothing item as above today. Hospital environment becoming incorporated and delusions. Consider possibility that the aripiprazole is contributing to activation. We will increase to 20 mg tomorrow and also start Risperdal 1 mg p.o. twice daily as as needed. 03/02 - Continue with aripiprazole at 20mg daily, consider need for further titration - if tolerating and effective, eventual plan will be for conversion to Abilify Maintena - Pt has not yet utilized risperidone 03/03 - Increase aripiprazole to 25mg (equivalent to 30mg pill) and change to liquid formulation to decrease risk of cheeking/nonadherence, as patient does not believe he needs medication and had been noncompliant prior to hospitalization. - Fasting glucose and lipid profile ordered for tomorrow for monitoring on an atypical antipsychotic. - Private room due to psychosis, agitation, and inappropriate disrobing/sexual behavior. - Meeting with [facility] and [facility] staff when patient able to tolerate. 03/04 - Continue aripiprazole 25mg liquid (30mg pill equivalent) and continue to observe for improvement in thought process/content - consider conversion to Maintena if effective, versus trial of another agent if improvement remains limited - Fasting labs reviewed - all values WNL - Continue medically necessary private room - Request meeting with [facility] staff, in order to obtain details about patient's proximity to baseline 03/05 -Patient refusing liquid aripiprazole, but agrees to take the pill: Ordered 30 mg daily. -Schedule meeting with his pillowcase cutter, CR[facility] and psych rehab staff. Consider involuntary outpatient commitment at the time of discharge. 03/06 -The patient has improved in that he is more reality based at this point. He continues to harbor fixed, systematized delusions, but is generally able to focu s on reality based topics. -Although the patient tells me that he does not feel that aripiprazole has been effective, he is able to accept my opinion in the opinion of the staff that he has improved in response to aripiprazole. -The patient's main objection to aripiprazole oral solution is that he does not like the way it tastes, and within this context, he tells us that he is willing to accept Abilify Maintenaand requests that it be injected into his buttock. Abilify Maintena 300 mg IM ordered, and oral Abilify discontinued. We will resume oral Abilify if the patient subsequently changes his mind and refuses the injection. 03/07 resuming Abilify oral given his refusal of FARAH form of Abilify 03/08 is taking Abilify po form but refusing Abilify Maintena form. advise close monitoring for potential of checking given pt's tendency to not want to take medications. 03/09 -The patient is flatly refusing to take aripiprazole in the form of Abilify Maintena. He is also been hesitant to take oral Abilify, but has been doing so. -The patient's lack of cooperation is thought possibly to be related to an un-expressed desire to not be discharged back to the community. He told me t loulou that he left his meeting with his community providers after a few seconds because "just the side of them made me extremely anxious. My pulse elevated to 140." Later, he told me that he was still anxious about it and his pulse was "still around 130." The patient allowed me to take his pulse, and it was approximately 76. At that point he said, "did I say pulse? I meant systolic blood pressure." And when I pointed out that his systolic blood pressure of 130 is not considered to be a particular concern, he said "I mean diastolic." -Our hope had been that the patient would agree to accept a Depo form of medication. He was refusing Haldol Decanoate because of various side effects. Risperidone constant was ruled out as a first-line Depo medication because of the frequency of administration (the patient tends to get into power struggles over medications) and because he says that he is sensitive to "big needles." Invega would be an option, but currently the patient is being so uncooperative that our concern would be that he would cheek the oral tablets that we would have to give him first. Accordingly, the new strategy will be to discontinue Abilify, and resume olanzapine with olanzapine IM over objection if necessary. We will begin the olanzapine Zydis 20 mg at bedtime 03/10 -The patient took the prescribed dose of olanzapine Zydis 20 mg at bedtime last night. Today, he tells me that it "did not help at all." However, staff report that he has been somewhat more agreeable, more pleasant, and less paranoid today. -As he has with other providers, today he told me that I should have given him olanzapine 5 mg "to start", and I explained that he was already on olanzapine 20 mg when he came into the hospital and we know that he is able to tolerate that dose. He tells me that he did, in fact tolerate the dose and is not aware of any side effects, but, somewhat illogically, insisted that the dose was "too high for a starting dose." 03/11 - Continue current medication regimen at this time - olanzapine 20mg daily - Encourage participation in the milieu and in group programming as tolerated 03/12 -Continue current medication regimen. The patient's condition has not yet improved. -The patient does participate in select groups, but often tends to be disruptive. 03/13 -Today, the patient seems to be somewhat more cooperative and less frankly delusional. It was possible to engage in a mostly reality based conversation for 5 or 10 minutes at a time. Also, although he was unhappy with me when I refused to provide him with a dose of Valium for anxiety, he was able to remain pleasant and calm at this time, did not storm from the room." 03/14 and 03/15 -no change in medication will work on therapeutic alliance given patient is not participating 03/16 -304 involuntary commitment granted. -Patient remains completely uncooperative with treatment, refused his Zyprexa Zydis last evening, but then ultimately took it before he received the injection . I have a high suspicion for cheeking of antipsychotic medication, and we will continue to be vigilant with mouth checks, and work towards a long-acting injectable. 03/17 -Patient has been on Zyprexa 20 mg at bedtime for 1 week, with limited response. He is refusing to discuss other medication options. Per records, he has been prescribed up to 30 mg olanzapine in the past, so will increase his dose to this previously tolerated dose, as it is 1 of the few medications he has been willing to take. Continue IM backup for refusal, and Zyprexa Zydis formulation to decrease risk of cheeking. He is not compliant with mouth checks, but have asked staff to try to observe him for 10 minutes after taking the Zydis to ensure he is not spitting it out before it dissolves. 03/18 -Continue Zyprexa Zydis 30 mg at bedtime with IM backup. Consider switch to a different medication (?oral paliperidone with IM backup) if irritability and agitation continues. He has tried virtually every atypical antipsychotic and reports none of them were effective (although some trials were short due to nonadherence) and has a history of dystonia on haloperidol. Clozapine would be a reasonable choice, but he has been unwilling to even discuss medication options. -Consider some component of cognitive decline which could be contributing to his worsening presentation and will need to be monitored and worked up further once he is more psychiatrically stable. -Refer to [facility] in the event that he does not improve and long-term inpatient treatment is needed. 03/19 - Proceed with [facility] referral. 03/20 - Continue current medication regimen; patient refused EKG and CXR yesterday - refused again today - Continue attempts to gather information to make a referral to [facility] 03/23 - Proceed with [facility] referral - patient has refused EKG and CXR for multiple attempts. We will send most recent tests available - Continue current medication regimen at this time 03/24 -Attempted to hold diversion meeting with his outpatient [facility], penitentiary director, and [facility]; patient refused to attend or participate in the meeting. 03/25 - 03/26 - Continue treatment plan as above - no change in patient's condition and he remains unwilling to participate meaningfully in treatment - Continue with [facility] referral 03/27 -The patient has been informed that the plan at this point is to transfer him to [facility] for long-term inpatient psychiatric treatment, given his refusal to adhere with treatment and his associated behaviors in the community when not adherent with psychiatric treatment. -The patient continues to refuse mouth checks after given dosages of Zyprexa Zydis, and there is some question regarding whether he is actually ingesting this medication. He also would not cooperate with laboratory testing. -There has been a question regarding the patient's cognitive functions, and prior to admission he had been taking Aricept. When he does cooperate with this, I have not seen evidence of any substantial cognitive impairment. He may have mild cognitive impairment, but does not fully cooperate with formal cognitive assessment. He easily recalls the names of his providers, the names of the medications he is taking, the names of the various infectious agents that he believes are causing some of his psychiatric symptoms, the names of certain chemicals that he believes will rid him of the reference to infections, and is able to discuss current events such as recent news items. His assertion that he wants to return to his apartment in the community seems belied by his steadfast refusal to cooperate with those interventions I would make it possible for him to return, and there is some suspicion that although the patient remains floridl y psychotic he may also be intentionally sabotaging discharge. 03/28 - 03/30 -There is been no [employer] wireless manager the past 2 weeks, and [facility]. 03/31 - Continue current medication regimen - Pt briefly verbalized willingness for FARAH, but was not agreeable to medication adjustments to allow for this to be possible - If he should change his mind; recommendation is for trial of Invega orally to establish tolerability, then consideration for Invega Sustenna - unwilling for this today 04/01 - 04/03 - Continue current medication regimen - Continues to refuse FARAH, will continue discussion daily as this is the reported preference of his CRR 04/04 -Questionable positive PPD measuring 13 mm but history of confinement places him at higher risk. Patient refused chest x-ray today but we will reapproach. No active symptoms of infection. Order for sputum culture and smear today for confirmation. 04/05 -PPD now appears negative. Would suggest follow through with sputum smear and culture for confirmation as previously ordered -Continue treatment plan as above 04/06 - PPD reportedly negative, patient unable to follow-up with sputum smear - therefore discontinued - Continue medication regimen as above - unwilling to discuss conversion to an FARAH - Meeting today with representation from [facility] to discuss discharge planning 04/07 - Continue medication regimen as above - remains unwilling to discuss changes - Additional meeting with CRR and CM scheduled for next week - We have been regularly assessing patient's condition and appropriateness to go outside since his 30-day treatment plan review. As patient continues to be unwilling to participate in a meaningful conversation with providers regarding his condition, we continue to be unable to determine if he is appropriate to be taken off the unit - therefore will await ability to discuss the topic in a meaningful way prior to making this determination. Will continue regular evaluation. 04/08 - 04/12 - Continue current medication regimen, as patient unwilling to discuss changes - Attempted again to determine if appropriate to go outside, patient unwill ing to participate in conversation despite being told the goal of allowing him to go outside - Meeting with CM and CRR director scheduled for 04/13 at 1030 04/13 - Continue Zyprexa 30mg daily - unwilling to engage in conversation to discuss changes - Remains unwilling to engage in conversation to determine if he is appropriate to go outside, he has been made aware this is a possibility for him - Meeting for attempted diversion resulted in decision to no longer hold patient's CRR bed, [facility] admission is supported based on little to no improvement since admission and limited willingness to engage in conversations regarding medication adjustments - We have been asked to attempt to get a QuantiFERON-TB Gold Plus test, despite negative PPD reading within acceptable timeframe - pt unwilling to engage in conversation to obtain consent, further indicating why long-term inpatient psychiatric hospitalization is necessary. Will continue to attempt to gain consent for this testing to be completed 04/15 -The patient is slightly more communicative today and that he does answer at least one question which was whether he would be in agreement if we offered him a drug holiday from olanzapine. His response was in the affirmative.. He also said "thank you." -The patient continues to appear suspicious and he clearly is angry at and unwilling to cooperate with staff. He is particularly bumptious with individuals who he sees as not fully trained and fully qualified. -[facility]. Our hope remains that we will be able to [facility] the [facility], but the patient, as noted above, remains uncommunicative and resistant. Perhaps contributing to the patient's obvious anger and distress is the fact that he has learned this week that his residential program is unwilling to allow him to return and has stopped holding his bed for other individuals. 04/16 - Continue current treatment plan, which includes holiday from olanzapine as a rapport building attempt, and due to concerns that he is more irritable and resistant to treatment - which is obviously not beneficial for his overall condition. - Attempted to communicate with the patient today via written/printed text - will add addendum to this note if patient was willing to complete the sheet and respond to questions 04/21 -Patient remains uncooperative and unwilling to participate in interviews, but has been out of his room more and attending some groups. He remains unwilling to discuss treatment options, including antipsychotic medication. 04/22 - Patient remains unwilling for medications, but is interacting with peers appropriately and attending groups. Will try discontinuing private room and placing him with a roommate, is perhaps increased socialization will be therapeutic for him. 04/23 -no change, patient still unwilling for medications(other than marijuana and benzos) 04/24 -The patient remains angry, suspicious, and largely uncommunicative. He spoke briefly with the attending psychiatrist today in order to request privileges to go outdoors with staff, and was able to cooperate with a fresh air break, but subsequently was angry, bumptious, and willing to cooperate with assessments. 04/25 - Valium 5mg dose yesterday appeared to lead to some disinhibited verbally agitated behavior, with the Valium dose being discontinued following that one dose. Pt is fixated on Valium and on temazepam. refusal to take other medications with. Handling a roommate decently currently. Pt refusing to attend groups. Limited engagement with peers and staff occurring. no change to plan today 04/26 no change to plan today 04/27 -The patient cooperated with an interview today after several weeks of flatly refusing, sometimes rudely refusing to speak to providers. Today, the patient not voiced any delusional material and was able to specifically answer questions regarding perceptual disturbances. 04/28 -no change. 04/29 -start ziprasidone 20 mg twice daily with meals. Reviewed risks, benefits and common side effects including sedation and the need to take with food. 04/30 maintained ziprasidone at current dose today given pt's tendency to refuse medications mikey if notice any s/e, considering raising dose tomorrow 05/01 -Based on the patient's behavior today there seems to be no evidence that the patient is enjoying any particular benefit from ziprasidone. To the contrary, he may have become more bumptious and withdrawn. My recommendation is that we continue to observe him on ziprasidone 20 mg twice a day before increasing his dose further, possibly over the weekend. 05/02 -continue current medication and consider dose increase next week. It is likely that it will take weeks to show benefit from antipsychotic medication given the severity and chronicity of his symptoms, and his history of treatment resistance. He would be a good candidate for clozapine, but has never been willing to consider it. 05/03 -increase ziprasidone to 40 mg twice daily with food. Continue to encourage group attendance. 05/04 - Continue recently increased dose of ziprasidone 40mg BID with food 05/05 - Continue as above; limited change in presentation at this time 05/06 - Pt agreeable to titrating ziprasidone to 60mg BID, starting with this evening's dose. 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 05/07 - Continue as above, limited change in presentation 05/08 - Continue as above, consider need for further titration of ziprasidone - Limited change in presentation, but has been superficially pleasant 05/09 - continue as above, considering potential to further titrate ziprasidone 60mg bid with meals, as pt was more willing to engage senior technical writer even more then prior times (last seen by this senior technical writer about 9 days ago) will maintain as is for now but considering raising to 80mg bid, 05/10 continue plan unchanged 05/11 - Continue ziprasidone at 60mg BID - unwilling to engage in discussion reg arding further titration - Would suggest titration to 80mg BID, especially as he has verbalized ongoing delusional beliefs - Continue to engage patient in discussion regarding possible diversion plan; reach out to the county to discuss options and re-evaluate condition 05/12 - Continue as above, patient again unwilling to engage in conversation long enough to discuss medication titration - Consider titration to 80mg BID when able to discuss further, ongoing reported delusions that he is "not sick" and "does not have schizophrenia" 05/13 - Continue as above - patient more agreeable to conversation today, actually meeting with this provider in the office - Ongoing delusional belief that he does not have a diagnosis of schizophrenia, but behaviors not likely to be harmful to patient in the outpatient setting if he is met with adequate supports - Will attempt to schedule meeting to involve county in discussion of possible diversion plan 05/14 - Continue current mediation regimen - Plan is for meeting with case management and county representatives 05/15 to consider diversion planning - Still no word on anticipated bed date from [facility] 05/15 - Continue current medication regimen - Meeting scheduled today at 1200 to discuss possible diversion planning versus attempt to expedite [facility] transfer - No estimated bed date provided 05/16 -Possible diversion to CRR with further planning to occur on Saturday -Continue medication regimen unchanged 05/17 -Continue treatment plan unchanged 05/18 - 05/20 - Continue current treatment plan - Referral faxed to [facility] housing consideration, patient remains agreeable 05/21 - Pt accepted at [facility] with bed date 05/28. Coordinated w/ county who request he be placed on a 305 commitment prior to discharge as his 304 is nearing completion. Hearing scheduled for 05/28/19. 05/22 - Continue above treatment plan - Pt's 305 hearing is scheduled for the morning of 05/25/19, plan is for patient to be discharged to the [facility] after this hearing (2) Substance abuse: 02/25 - Pt has reported history of substance abuse, and recommendation has consistently been for avoidance of substances with significant abuse potential. - PDMP queried - most recent prescriptions below - lorazepam 0.5mg #60 tabs for 30 day supply - Dr. Alves - filled 02/12/2019 - alprazolam 0.5mg #90 tabs for 30 day supply - Dr. Lopez - filled 01/16/2019 - temazepam 30mg #30 caps for 30 day supply - Dr. Lopez - filled 01/16/2019 - Will continue lorazepam 0.5mg BID prn on admission, as only medication that is seemingly active - toxicology screen is negative for benzodiazepines, which questions if he has been taking the medication appropriately - Ideally will taper and discontinue the lorazepam, as recommendation remains that substances with abuse potential be avoided 02/26 -The patient's outpatient providers, during a meeting this morning, report that the patient tends to successfully convince physicians to prescribe benzodiazepines for him and that, in the past, he has abused him to the degree that he is practically obtunded. 02/27 -A repeat check of the PDMP reveals that the patient is consistently being prescribed lorazepam 0.5 mg twice daily (number 60/month) by a Dr. Brent Alves. He is also being prescribed alprazolam 0.[address] mg [address] Jeff Lopez, with the most recent previous prescription of alprazolam being on 01/16/[address] Lopez also prescribed temazepam 30 mg capsules #30 on 01/16/2019. According to his residential providers, no temazepam capsules were found among the patient's belongings. His most recent prescription for lorazepam 0.5 mg tablets was filled on 02/12/2019. 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 In the past, he reportedly has used clonazepam and temazepam. -I advised the patient that because of his history of misuse of benzodiazepines we would not be prescribing benzodiazepines during his hospital stay. An as needed order for lorazepam has not been used during hospital stay, and I discontinued the order today. 03/02 - Will need to coordinate care with his PCP and outpatient psychiatrist prior to discharge regarding the above. 03/04 - Charge nurse spoke with the above offices regarding concern for continued benzodiazepine prescriptions - Records will be faxed to their offices on discharge, as all benzodiazepines were discontinued during this hospitalization 03/06 -The patient did not request benzodiazepines and did not complain of anxiety today. I suggested to him that perhaps Abilify is also helping with anxiety in his case, and he responded by saying "perhaps." 03/09 -Today, the patient is insisting that what he needs is "benzodiazepines," and explains that the reason he "needs" benzodiazepines is that he has "benzodiazepine receptors," and that he is the only medications that work. He is unable to process warnings about the risks of benzodiazepines in the elderly, including increased risk of falls and mortality. Clearly, the patient is seeking benzodiazepines and has no insight into the associated risks. He also insists that he has never had trouble with benzodiazepines in the past, although there is well-documented of this. 03/10 -Today, the patient repeated his insistence that he needs benzodiazepines and that benzodiazepines are the only medications that work because he has "benzodiazepine receptors." After being told that everyone has central nervous system receptors to which benzodiazepines may attach, he replied, "That may be, but some of people need to have benzodiazepines forearm benzodiazepine receptors. 03/12 -Continues to request Benzodiazepines. 03/13 -Requests Valium for his "benzodiazepines receptors." 03/27 -Refuses to cooperate with assessment today, but has recently told staff that he needs "either Valium or Ativan." -The patient apparently has no working insight into his history of abuse of prescription medications (benzodiazepines). 04/15 -The patient has not reference to request for benzodiazepines recently. However, the context is that he has not communicated much of anything directly, a other than the occasional need for self-care items. 04/24 -Today, the patient repeats his request for benzodiazepines, and insists that he is "supposed" to be taking diazepam 10 mg 3 times a day and temazepam for sleep every night. 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 Unfortunately, the exact opposite seems to have occurred. Not only was the patient was uncooperative subsequent to a dose of Valium, he seems to have been disinhibited by it and shouting "get out" or "get away" several times when approached by staff 04/25 - pt focused on seeking temazepam, or Valium 04/27 -The patient does have a history of substance dependence. However, the current plan and expected disposition is for the patient to be transferred to an extended care inpatient psychiatric unit where abuse of prescribed medications is unlikely to occur. Today, the patient calmly requests temazepam and says that he has tried a number of different sleeping pills, but "that is the one that works." The patient is also able to clearly say that he understands that temazepam is physically habituating that there are associated risks associated with temazepam including, but not limited to, a risk of falls, accidents, confusion, and depression. He tells us that at prescribed dosages he has not had any of these problems in the past. -Today, I agreed to a trial of temazepam 15 mg at bedtime, a dose that the patient says has been effective in the past. 04/30 close monitoring of temazepam given above, so far not taken 05/01 -After persistently insisting that he had to have temazepam in order to sleep and that nursing staff reports that he is sleeping through the night are wrong because he tends to rest with his eyes closed, the patient has not ask for temazepam and has not been given temazepam since it was ordered a week ago. The patient declined to explain why he has not ask for it, and refuses to answer questions today as to whether he is sleeping well without. In fact, when asked to explain why he had not taken any after insisting on having a prescribed, he shouted "get the hell out!!." Perhaps the patient has forgotten that it was ordered, but he seemed to remember the day after it was ordered and ask for not asked for it since. Our thought is that he may have somehow incorporated the order for temazepam into his delusional when belief system, based on his rage when asked to explain why he hasn't asked for it. (3) Hypertension: 02/25 - Continue home dose of clonidine 0.1mg qHS 03/01 Watch mildly elevated blood pressures as patient has been refusing clonidine 03/03 - BP normal past two days, and low today 03/10 -The patient's blood pressure today was 136/73. His pulse was 71 03/14 - elevated BP it is not urgent but will need monitored. 03/15 - BP WNL 03/26 - BP continues to be WNL 04/02 - BP remains within normal limits; continue daily vitals per standard admission order set - Will consider acute phase of this problem resolved at this time (4) Acute UTI: 05/19 - Pt awoke with symptoms of urinary retention, pain, and burning; temperature mildly elevated - Urinalysis ordered this AM, which was positive for leukocyte esterase, WBCs, 3+ urine bacteria - Urinalysis also positive for RBC and 3+ urine blood; study from admission (02/23/19) was also positive for trace urine blood - Will begin empiric treatment with nitrofurantoin 100mg BID x 7 days - Urine culture is pending, and treatment course to be adjusted accordingly once results are obtained - Continue to monitor symptoms 05/20 - Pt appearing to be more unstable and somewhat disoriented at times; fever this morning - CBC obtained, showing leukocytosis - CMP showing sodium of 133; pt admittedly not eating well due to physical illness, did consume broth after interview - CK obtained from prior blood sample, as patient had been reporting stiffness to nursing - wnl at 83 - Continue symptomatic treatment: Tylenol for pain/fever, regular hydration/nutrition - Continue ABX as above, sensitivities pending - adjust antibiotic as necessary based on findings - Pt did appear improved later in the afternoon, requesting to shower and appearing more stable on his feet 05/21 - UTI sensitive to nitrofurantoin, complete course. Fever resolved, encourage hydration. - Slight electrolyte abnormalities, encourage good po intake. Leukocyctosis consistent with UTI. CK normal. 05/22 - As above, symptoms continue to improve Mental Health & Subst Abuse Tx Psychiatrist Name of Psychiatrist: [facility] - Dr. Alves Psychiatrist's Date of Appointment with Psychiatrist: 05/28/19 Time of Appointment with Psychiatrist: 2:30 p.m. Psychiatric Appointment Comment: [id number], [place] [address] Therapist Name of Therapist: [employer] [facility] Name of Counterintelligence/Humint Specialist: Shruti Lopez Phone Number for Counterintelligence/Humint Specialist: Date of Appointment with Counterintelligence/Humint Specialist: 05/25/19 Time of Appointment with Counterintelligence/Humint Specialist: 2:45 p.m. Case Management Appointment Comment: Will see you at the CRR Post Discharge Appointments Primary Care Physician Name Of Family Doctor: [facility] - Dr. Lopez Primary Care Date of Appointment with PCP: 05/26/19 Time of Appointment with PCP: 4:10 p.m. Provider Appointment Comment: [address], [address], [place] [address] Smoking Cessation Counseling Tobacco Cessation Medication Prescribed at Discharge: Offered & Pt Refused Contact Information Discharge Discharge Address: [address] [place] [address] Contact Information Comment: [facility] Discharge Plan Discharge Items Patient Disposition: Home - Self-Care Reason For Visit: SCHIZOPHRENIA Discharge Diagnosis: Schizophrenia Activity: Per Instructions section Non-emergency contact: Primary Care Provider, Psychiatrist, Therapist and Commercial Pest Control Technician Call non-emergency contact if: you have any medication questions and your symptoms worsen Follow-up/Referrals: Jeff Lopez MD [Primary Care Provider] - Diet: Regular Addtl Attending Provider Instructions: SPECIAL CARE INSTRUCTIONS: 1. Follow through with your scheduled aftercare appointments. If unable to keep an appointment, please call to reschedule. 2. Take your medication only as prescribed. Medication should not be changed or stopped without the approval of your doctor. In the event of worsening symptoms or concerns about side effects, contact your doctor immediately. 3. Utilize new healthy coping skills, anger management skills, and stress management skills learned during your hospitalization. Journal feelings and process them with a support person. Identify stressors or situations that may result in relapse, deterioration or inappropriate behaviors and develop a plan to deal with those issues. 4. If your coping skills are ineffective and you are in crisis, contact your outpatient providers for direction. If unable to reach your providers, please call the CAN HELP LINE AT or go to the closest Emergency Room. 5. Avoid alcohol and un-prescribed drugs. 6. You have been provided with the Mental Health Advance Directives Pamphlet for your review. AFTERCARE APPOINTMENTS: * Please call your insurance company prior to your scheduled appointment to confirm your aftercare providers are covered. Take your insurance information to your appointments. WHO TO CALL AND WHEN: Medical Emergencies: For questions or emergencies related to your hospital stay, please contact the Inpatient Behavioral Health Unit at [phone]. A incident response consultant is on-call 11/03 for the Behavioral Health Unit for emergencies At any time you feel your situation is an emergency, you may also call 911 immediately. Your Doctors Instructions noted above were prepared by provider Alison Campos MD. Pending Studies at Discharge: No Stand-Alone Forms: My [facility] Medications and DC Order Prescriptions: New nitrofurantoin monohyd/m-cryst 100 mg Capsule 100 mg PO BID Qty: 2 RF: 0 ziprasidone HCl 20 mg Capsule 60 mg PO BIDM Qty: 60 RF: 0 magnesium oxide 400 mg (241.3 mg magnesium) Tablet 400 mg PO DAILY Qty: 30 RF: 0 Continued B Complex 1 tab PO DAILY RF: 0 cyanocobalamin (vitamin B-12) [Vitamin B-12] 500 mcg Tablet 500 mcg PO DAILY RF: 0 pyridoxine (vitamin B6) [Vitamin B-6] 100 mg Tablet 100 mg PO DAILY RF: 0 melatonin 10 mg tablet 10 mg PO HS RF: 0 Multi Vitamin 1 tab PO DAILY RF: 0 iodine 225 mg PO DAILY RF: 0 lutein 40 mg PO UNKNOWN RF: 0 clonidine HCl 0.1 mg Tablet 0.1 mg PO HS RF: 0 Changed benztropine 0.5 mg tablet 0.5 mg PO BID PRN (Reason: EPS) Qty: 0 RF: 0 Discontinued caffeine 200 mg Tablet 200 mg PO DAILY RF: 0 lorazepam [Ativan] 0.5 mg Tablet 0.5 mg PO UNKNOWN PRN (Reason: Anxiety) RF: 0 magnesium 250 mg Tablet 250 mg PO DAILY RF: 0 olanzapine 20 mg tablet 20 mg PO HS RF: 0 Xanax 0.5 mg PO UNKNOWN PRN (Reason: Anxiety) RF: 0 donepezil [Aricept] 5 mg Tablet 10 mg PO DAILY RF: 0 Discharge Orders: Discharge Order (Routine); Ordered 05/25/19 Ordered By: Alison Campos Admission Data Admit Date/Time: 02/24/19 16:40 Attending Provider: Alison Campos Admit Provider: Alison Campos Primary Care Provider: Jeff Lopez Other Interventions: PSY Interdisciplinary Discharge Planning Last Done: 05/25/19 09:34
== END 2019-05-25 10:50 | disposition home or self-care (01) | DRG 885 ==
LOC: ED 14:04 → 3S 02-24 16:40
DX: N39.0 Urinary tract infection, site not specified; F20.0 Paranoid schizophrenia; Z81.8 Family history of other mental and behavioral disorders; Z91.14 Patient's other noncompliance with medication regimen; F17.210 Nicotine dependence, cigarettes, uncomplicated; Z81.1 Family history of alcohol abuse and dependence; Z79.899 Other long term (current) drug therapy; I10 Essential (primary) hypertension

== ENCOUNTER 2019-07-07 13:18 | Inpatient (IN) ==
[2019-07-07 14:29] LABS: Appearance Urine Clear (Clear); Bacteria Urine Automated Negative (Negative); Bilirubin Urine Negative (Negative); Blood Urine Negative (Negative); Cast Urine Automated 0 /lpf (0-5); Color Urine Yellow; Epithelial Cell Urine Auto 0-5 /lpf (0-5); Glucose Urine UA Negative (Negative); Ketones Urine Negative (Negative); Leukocyte Esterase Urine Trace (Negative); Nitrite Urine Negative (Negative); Protein Urine Negative (Negative); RBC Urine Automated 0-4 /hpf (0-4); Specific Gravity Urine 1.012 (1.000-1.030); Urobilinogen Urine Negative (Negative)
[2019-07-07 14:43] LABS: Basophils # (auto) 0.02 K/uL (0-0.2); Basophils % (auto) 0.2 %; Eosinophils # (auto) 0.12 K/uL (0-0.5); Eosinophils % (auto) 0.9 %; Hematocrit (blood only) 44.7 % (42-52); Hemoglobin 15.5 g/dL (14.0-18.0); Immature Granulocytes # (auto) 0.04 K/uL (0.00-0.02); Immature Granulocytes % (auto) 0.3 %; Lymphocytes # (auto) 1.23 K/uL (1.2-3.4); Lymphocytes % (auto) 9.5 %; Mean Corpuscular Hemoglobin 32.4 pg (25-34); Mean Corpuscular Hgb Conc 34.7 g/dL (32-36); Mean Corpuscular Volume 93.5 fL (80-100); Mean Platelet Volume 8.7 fL (7.4-10.4); Monocytes # (auto) 0.97 K/uL (0.11-0.59); Monocytes % (auto) 7.5 %; Neutrophils # (auto) 10.58 K/uL (1.4-6.5); Neutrophils % (auto) 81.6 %; Platelet Count 307 K/uL (130-400); RDW Standard Deviation 44.7 fL (36.4-46.3); Red Blood Count 4.78 M/uL (4.7-6.1); White Blood Count 12.96 K/uL (4.8-10.8)
[2019-07-07 14:48] LABS: Amphetamines+Metham, Urine Neg (Neg); Barbiturates, Urine Neg (Neg); Benzodiazepine, Urine Neg (Neg); Cocaine, Urine Neg (Neg); MDMA (Ecstacy), Urine Neg (Neg); Methadone, Urine Neg (Neg); Opiate, Urine Neg (Neg); Phencyclidine, Urine Neg (Neg)
[2019-07-07 15:08] LABS: Alanine Aminotransferase 26 U/L (12-78); Albumin Level 3.9 gm/dl (3.4-5.0); Aspartate Aminotransferase 16 U/L (15-37); BUN Creatinine Ratio 15.7 (10-20); Blood Urea Nitrogen 14 mg/dl (7-18); Calcium 9.5 mg/dl (8.5-10.1); Carbon Dioxide 27 mmol/L (21-32); Chloride 102 mmol/L (98-107); Est GFR (African American) 95.3; Est GFR (Non-African American) 82.2; Magnesium 2.1 mg/dl (1.8-2.4); Potassium 3.5 mmol/L (3.5-5.1); Sodium 137 mmol/L (136-145)
[2019-07-07 15:10] LABS: Glucose 110 mg/dl (70-99)
[2019-07-07 15:11] LABS: Acetaminophen < 2 ug/ml (10-30)
[2019-07-07 15:12] LABS: Salicylate < 1.7 mg/dl (2.8-20)
[2019-07-07 15:19] LABS: Albumin Globulin Ratio 0.9 (0.9-2); Alkaline Phosphatase 97 U/L (45-117); Bilirubin,Total 0.4 mg/dl (0.2-1); Globulin 4.2 gm/dl (2.5-4.0); Total Protein 8.1 gm/dl (6.4-8.2)
--- NOTE | 2019-07-07 17:43 | Emergency Department Note ---
Entered by Geri Hernandez acting as a scribe for Dex Kennedy MD ED Provider Note Name: SCOTT ROBERTO Age: 74 Arrives Via: Walk-In Informant: Patient CC: Suicidal ideation and auditory hallucinations HPI: 74M arrives for evaluation of ongoing suicidal ideation that worsened today. The patient reports that he hears voices that tell him that they wont kill him in the hospital but they will wait until he gets outside. He states that he bought Tylenol today to overdose and notes that he has the bottle with him in the room currently. He denies having taken any pills prior to arrival. He denies having tried to harm himself recently. He denies any recent falls or head injuries. He denies any chest pain, abdominal pain, or headaches. He notes that he feels like his neck and shoulders are hurting him and keeping him from sleeping. However, he states that he has chronic insomnia issues. He denies drinking any alcohol recently. The patient notes that he was recently in [facility] for treatment, but he states that he does not want to go back to [facility] as they were not able to help him. He states that [place] has been stealing from him. He denies feeling as though anyone is out to hurt him. ROS: See above HPI for pertinent positives & negatives. A total of 10 systems reviewed and were otherwise negative. Past Medical History:Insomnia, substance abuse, schizophrenia, thought disorders, paranoia, benzodiazepine abuse, hypertension, hypokalemia. Past Surgical History:See Below Family History:Non-contributory Social History:See Below Home Medications:Benztropine, clonidine, Magnesium oxide, Ziprasidone Allergies:No known allergies Vitals:BP: 145/87; Pulse: 106; Resp: 20; Temp: 97.7F; O2 Sat: 96% RA Physical Exam: GENERAL: Patient is sad appearing and in no acute distress. EYES: No scleral icterus, unremarkable pupils. ENT: Mucous membranes moist, no nasal congestion. NECK: No masses appreciated, nomeningismus, trachea is midline. RESPIRATORY: No dyspnea. Clear to auscultation and equal bilaterally. No wheeze, no rhonchi. CARDIOVASCULAR: Regular rate and rhythm.No murmurs, rubs, gallops appreciated. GASTROINTESTINAL: Abdomen soft, non-tender, no peritonitis.Bowel sounds positive.No masses appreciated. BACK: No midline tenderness, no CVA tenderness EXTREMITIES: Normal motion all extremities, no cyanosis, no edema. NEUROLOGIC: Alert and oriented, no acute motor or sensory deficits, no focal weakness, cranial nerves grossly intact. PSYCH: Admits SI, depression, and auditory hallucinations SKIN: No rash, no jaundice, no diaphoresis. ED Course: Prior Medical Record, Triage/Nursing Notes, Medications, Allergies reviewed by Me Vital Signs: reviewed and remarkable for no significant abnormalities after calming down Labs:Reviewed and remarkable for no significant abnormalities Interventions: None Imaging: CT Head on 04/29/2018 was unremarkable Reassessments/Times: 1402:The patient was evaluated in room A06. A complete history and physical examination was performed. 1555: Patient admits that he wants to kill himself but he states that he wants to leave the ED. Nursing staff is filling out a 302 for the patient. 1705: I signed a 302 warrant for the patient at this time. He will be moved to a inpatient mental health facility once placement can be found. 1745: Patient is waiting on placement currently. 1800: Patient was accepted and will be moved for further management and care. Blood pressure:Elevated - Referred to PCP - [place] to be Situational. Disposition:3 [facility] Hospitalization Differentials:Differential diagnoses considered include mood disorder, infection, hypoglycemia, electrolyte abnormalities, cardiac sources, intracerebral event, toxicologic, neurologic amongst other pathologies. Medical Decision Makin yr old male with long history of psychiatric illness and multiple admissions arrives with worsening auditory hallucinations and thoughts of harm to self to the point where he reports buying a bottle of tylenol to kill himself. He is u nwilling to sign himself in and is requesting discharge. For this matter 302 suicidal by Case Management which after [facility] signed to warrant I have signed as well. He is high risk to harm self and will clearly need inpatient treatment. Work-up benign. Previous neuro imaging a year ago negative and given his well known psychiatric history I do not feel repeat necessary at this time. Impression: Suicidal ideation Acute psychosis Auditory hallucinations The scribe's documentation has been prepared under my direction and personally reviewed by me in its entirety. I confirm that the note above accurately reflects all work, treatment, procedures, and medical decision making performed by me. Dex Kennedy MD Impression & Plan Suicidal ideation, Auditory hallucination, Acute psychosis Past Med/Surg History Medical History Altered mental status (Acute) Altered mental status (Acute) Benzodiazepine abuse (Chronic) Closed head injury (Acute) Closed head injury (Acute) Dehydration (Acute) Fall (Acute) Fall (Acute) Hypertension Hypokalemia (Acute) Leukocytosis (Acute 08/14/13) Noncompliance (Chronic) Paranoia (Acute) Rhabdomyolysis (Acute 07/21/13) Scalp laceration (Acute) Scalp laceration (Acute) Scalp laceration (Acute) Schizophrenia (Chronic) Thought disorder (Acute) Tobacco use disorder (Chronic) Family History Other No pertinent family history Social History Preferred Language: Telugu Communication Ability: Effective Rendering Equipment Tender Required: No Beliefs That Will Affect Care: None Feels Safe at Home: Yes Smoking Status: Current every day smoker Tobacco Type: cigarettes ; Results & Data Vital Signs Vital Signs - 24 hr 07/07/19 13:36 07/07/19 14:47 07/07/19 17:08 Temperature 36.5 C Temperature Source Oral Pulse Rate 106 H Pulse Rate [Finger] 93 H 94 H Pulse Rhythm Regular Pulse Strength Normal Respiratory Rate 20 16 16 Respiratory Effort / Characteristics Non-Labored Spontaneous Respiratory Depth Normal Respiratory Pattern Regular Blood Pressure 145/87 H Blood Pressure [Right Arm] 138/83 145/82 H Blood Pressure Mean 106 Blood Pressure Mean [Right Arm] 101 103 Blood Pressure Position Sitting Pulse Oximetry 96 95 98 Oxygen Delivery Method Room Air Room Air Sepsis Recent Fever Within 48 Hours No Sepsis New/Unexplained Change in Mental Status No Sepsis Action Taken by Nursing No Action Required Home Medications Current Medication List: was personally reviewed by me Laboratory Data Attestation: I reviewed the patient's lab results. Result diagrams: 07/07/19 14:22 07/07/19 14:22 Lab Results 07/07/19 07/07/19 07/07/19 Range/Units 14:20 14:20 14:22 WBC 12.96 H (4.8-10.8) K/uL RBC 4.78 (4.7-6.1) M/uL Hgb 15.5 (14.0-18.0) g/dL Hct 44.7 (42-52) % MCV 93.5 (80-100) fL MCH 32.4 (25-34) pg MCHC 34.7 (32-36) g/dL RDW Std Deviation 44.7 (36.4-46.3) fL RDW Coeff of Namita 13.0 (11.5-14.5) % Plt Count 307 (130-400) K/uL MPV 8.7 (7.4-10.4) fL Immature Gran % (Auto) 0.3 % Neut % (Auto) 81.6 % Lymph % (Auto) 9.5 % [place] % (Auto) 7.5 % Eos % (Auto) 0.9 % Baso % (Auto) 0.2 % Immature Gran # (Auto) 0.04 H (0.00-0.02) K/uL Neut # (Auto) 10.58 H (1.4-6.5) K/uL Lymph # (Auto) 1.23 (1.2-3.4) K/uL [place] # (Auto) 0.97 H (0.11-0.59) K/uL Eos # (Auto) 0.12 (0-0.5) K/uL Baso # (Auto) 0.02 (0-0.2) K/uL Sodium (136-145) mmol/L Potassium (3.5-5.1) mmol/L Chloride (98-107) mmol/L Carbon Dioxide (21-32) mmol/L Anion Gap (3-11) BUN (7-18) mg/dl Creatinine (0.6-1.4) mg/dl Est Cr Clr Drug Dosing Est GFR ( Amer) Est GFR (Non-Af Amer) BUN/Creatinine Ratio (10-20) Glucose (70-99) mg/dl Calcium (8.5-10.1) mg/dl Magnesium (1.8-2.4) mg/dl Total Bilirubin (0.2-1) mg/dl AST (15-37) U/L ALT (12-78) U/L Alkaline Phosphatase (45-117) U/L Total Protein (6.4-8.2) gm/dl Albumin (3.4-5.0) gm/dl Globulin (2.5-4.0) gm/dl Albumin/Globulin Ratio (0.9-2) TSH (0.300-4.500) uIu/ml Urine Color Yellow Urine Appearance Clear (Clear) Urine pH 8.0 H (4.5-7.5) Ur Specific [place] 1.012 (1.000-1.030) Urine Protein Negative (Negative) Urine Glucose (UA) Negative (Negative) Urine Ketones Negative (Negative) Urine Blood Negative (Negative) Urine Nitrite Negative (Negative) Urine Bilirubin Negative (Negative) Urine Urobilinogen Negative (Negative) Ur Leukocyte Esterase Trace H (Negative) Urine WBC (Auto) 1-5 (0-5) /hpf Urine RBC (Auto) 0-4 (0-4) /hpf U Hyaline Cast (Auto) 0 (0-5) /lpf U Epithel Cells (Auto) 0-5 (0-5) /lpf Urine Bacteria (Auto) Negative (Negative) Salicylates (2.8-20) mg/dl Urine Opiates Screen Neg (Neg) Ur Methadone, Qual Neg (Neg) Acetaminophen (10-30) ug/ml Urine Barbiturates Neg (Neg) Ur Phencyclidine (PCP) Neg (Neg) U Amphetamin/Meth Scrn Neg (Neg) MDMA (Ecstasy) Screen Neg (Neg) U Benzodiazepines Scrn Neg (Neg) Ur Cocaine Metabolite Neg (Neg) U Marijuana (THC) Screen Neg (Neg) Ethyl Alcohol mg/dL (0-3) mg/dl 07/07/19 07/07/19 07/07/19 Range/Units 14:22 14:22 14:23 WBC (4.8-10.8) K/uL RBC (4.7-6.1) M/uL Hgb (14.0-18.0) g/dL Hct (42-52) % MCV (80-100) fL MCH (25-34) pg MCHC (32-36) g/dL RDW Std Deviation (36.4-46.3) fL RDW Coeff of Namita (11.5-14.5) % Plt Count (130-400) K/uL MPV (7.4-10.4) fL Immature Gran % (Auto) % Neut % (Auto) % Lymph % (Auto) % [place] % (Auto) % Eos % (Auto) % Baso % (Auto) % Immature Gran # (Auto) (0.00-0.02) K/uL Neut # (Auto) (1.4-6.5) K/uL Lymph # (Auto) (1.2-3.4) K/uL [place] # (Auto) (0.11-0.59) K/uL Eos # (Auto) (0-0.5) K/uL Baso # (Auto) (0-0.2) K/uL Sodium 137 (136-145) mmol/L Potassium 3.5 (3.5-5.1) mmol/L Chloride 102 (98-107) mmol/L Carbon Dioxide 27 (21-32) mmol/L Anion Gap 9.0 (3-11) BUN 14 (7-18) mg/dl Creatinine 0.92 (0.6-1.4) mg/dl Est Cr Clr Drug Dosing Not Reportable Est GFR ( Amer) 95.3 Est GFR (Non-Af Amer) 82.2 BUN/Creatinine Ratio 15.7 (10-20) Glucose 110 H (70-99) mg/dl Calcium 9.5 (8.5-10.1) mg/dl Magnesium 2.1 (1.8-2.4) mg/dl Total Bilirubin 0.4 (0.2-1) mg/dl AST 16 (15-37) U/L ALT 26 (12-78) U/L Alkaline Phosphatase 97 (45-117) U/L Total Protein 8.1 (6.4-8.2) gm/dl Albumin 3.9 (3.4-5.0) gm/dl Globulin 4.2 H (2.5-4.0) gm/dl Albumin/Globulin Ratio 0.9 (0.9-2) TSH 2.250 (0.300-4.500) uIu/ml Urine Color Urine Appearance (Clear) Urine pH (4.5-7.5) Ur Specific [place] (1.000-1.030) Urine Protein (Negative) Urine Glucose (UA) (Negative) Urine Ketones (Negative) Urine Blood (Negative) Urine Nitrite (Negative) Urine Bilirubin (Negative) Urine Urobilinogen (Negative) Ur Leukocyte Esterase (Negative) Urine WBC (Auto) (0-5) /hpf Urine RBC (Auto) (0-4) /hpf U Hyaline Cast (Auto) (0-5) /lpf U Epithel Cells (Auto) (0-5) /lpf Urine Bacteria (Auto) (Negative) Salicylates < 1.7 L (2.8-20) mg/dl Urine Opiates Screen (Neg) Ur Methadone, Qual (Neg) Acetaminophen < 2 L (10-30) ug/ml Urine Barbiturates (Neg) Ur Phencyclidine (PCP) (Neg) U Amphetamin/Meth Scrn (Neg) MDMA (Ecstasy) Screen (Neg) U Benzodiazepines Scrn (Neg) Ur Cocaine Metabolite (Neg) U Marijuana (THC) Screen (Neg) Ethyl Alcohol mg/dL < 3.0 (0-3) mg/dl Blood Pressure Blood Pressure Findings: Elevated blood pressure Blood Pressure Disposition: Referred to patients primary care provider Discharge Plan Visit Data *Final* Discharge Date/Time: 07/07/19 18:20 Chief Complaint: Mental Health Evaluation Stated Complaint: CAN'T SLEEP, CAN'T WALK ED Provider: Dex Kennedy Discharge Problem: Suicidal ideation, Auditory hallucination, Acute psychosis Patient Disposition: Admitted As Inpatient Discharge Instructions Interventions: ED Discharge Assessment Last Done: 07/07/19 18:20 The scribe's documentation has been prepared under my direction and personally reviewed by me in its entirety. I confirm that the note above accurately refl ects all work, treatment, procedures, and medical decision making performed by me.
[2019-07-07] MEDS ORDERED: MAGNESIUM HYDROXIDE SUSP 30 ML UDC PO PRN (18:02)
[2019-07-07] MEDS ORDERED: BISMUTH SUBSALICYLATE PER ML OMNICELL CHARGE PO PRN (18:02)
[2019-07-07] MEDS ORDERED: ACETAMINOPHEN 325 MG TAB PO PRN (18:02)
[2019-07-07] MEDS ORDERED: SODIUM CHLORIDE 0.65% NA SOLN 45 ML (OCEAN) PRN (18:02)
[2019-07-07] MEDS ORDERED: ALUMINUM/MAGNESIUM SUSP 30 ML UDC PO PRN (18:02)
[2019-07-07] MEDS ORDERED: BENZTROPINE MESYLATE 0.5 MG TAB PO PRN (18:12)
[2019-07-07] MEDS ORDERED: OLANZapine 10 MG/2.1 ML SDV IM PRN (18:14)
[2019-07-07] MEDS: DOCUSATE SODIUM 100 MG CAP PO SCH (21:13)
[2019-07-07] MEDS: CHLORPROMAZINE HCL 25 MG TABLET PO SCH (21:13)
[2019-07-07] MEDS: cloNIDine HCL 0.1 MG TAB PO SCH (21:14)
[2019-07-08] MEDS ORDERED: ZIPRASIDONE HCL 20 MG CAP PO SCH (08:00)
[2019-07-08] MEDS: DOCUSATE SODIUM 100 MG CAP PO SCH ×2 (08:43→21:16)
[2019-07-08] MEDS: MAGNESIUM OXIDE 400 MG TAB PO SCH (08:43)
[2019-07-08] MEDS: CHLORPROMAZINE HCL 25 MG TABLET PO SCH ×3 (08:43→21:16)
--- NOTE | 2019-07-08 08:50 | History & Physical ---
Date of Service July 08, 2019 Impression / Recommendations Impression 74-year-old male admitted involuntarily for inpatient psychiatric treatment on 07/07/2019, after presenting to the ED with reports of suicidal ideation, plan to overdose on Tylenol, and reports of having purchased a bottle of Tylenol prior to presentation. This medication was destroyed in the emergency room with patient's permission. Patient is well-known to our unit from a lengthy psychiatric admission from 02/24/19 through 05/25/19. It is also reported the patient was admitted to [facility] for about 10 days, the end of May. Surprisingly, patient is denying continued suicidal ideation since being admitted to our unit. He states that it was "a small mistake" and that he no longer has thoughts to end his life. Patient does verbalize that he had been hearing auditory hallucinations, stating he was "sick of it, I could not take it anymore." The patient admits that these auditory hallucinations have since quieted, and he is requesting to return home today. Patient informed that co ntact will need to be made with several outpatient supports in order to ensure the appropriateness of discharge. Patient was informed we would likely be looking at several days of lack of suicidal ideation in order to ensure stability after discharge. Patient states that he feels his current medication regimen has been beneficial for him, denying a perceived need to make adjustments to his dosing. Doses of ziprasidone were not able to be confirmed in the emergency room, and we will seek outpatient records today. Patient is stating he had been titrated to 80 mg of ziprasidone twice daily at [place]. We will encourage patient to participate in group and recreational programming. It is likely patient will be requested to involve his outpatient nurse case manager as well as staff from the [facility] in order to discuss discharge planning. Given patient's significant psychiatric history, he remains at high risk of harm to self or others if he is discharged prematurely without clear safety and discharge plan in place. Dr. Alison Campos was directly involved in review and discussion of the patient's case and participated in medical decision making regarding treatment recommendations. (1) Suicidal ideation: 07/08 - Admitted to a locked inpatient behavioral health unit, on q15 minute safety checks - Encourage medication initiation/adjustments as indicated - Encourage participation in group and recreational therapies - Gather collateral information from outpatient providers - Suggest family meeting to involve outpatient supports in safety planning - Arrange appropriate aftercare (2) Schizophrenia: 07/08 - Continue home medications - need to confirm home dosing of ziprasidone - confirmed to be 80mg BIDM - Pt did receive two doses of ziprasidone 60mg, as we were unable to initially confirm his dose titration - Coordinate care with outpatient supports to discuss safety and discharge pl anning - Encourage participation in group and recreational programming - Encourage completion of a safety plan prior to discharge Schizophrenia type: paranoid schizophrenia Qualified Code(s): F20.0 - Paranoid schizophrenia (3) Substance abuse: 07/08 - History of substance abuse, specifically overuse of benzodiazepines - Pt taken off all abusable substances during last admission to [facility]; none appear to have been restarted - Continue to avoid medications with high abuse potential - Coordinate with outpatient providers (4) Hypertension: 07/08 - Continue clonidine 0.1mg qHS - BP within normal limits today - monitor vitals daily Hypertension type: essential hypertension Qualified Code(s): I10 - Essential (primary) hypertension Risk Factors Assessment Male: Yes : Yes Do You Have Access To A Gun?: No Health Problems: No Mental Health Diagnoses: Yes Substance Use Disorders: No (historically) Previous Psychiatric Hospitalization: Yes Hopelessness: No Smoker: Yes Protective Factors Assessment Employed: No Psychiatric History Identifying Data TREY ROBERTO is a 74-year-old M who currently lives in [facility], has a diagnosis of schizophrenia, and was admitted on 07/07/19 18:03 on a 302 involuntary commitment for reports of suicidal ideation with reported plan to overdose on Tylenol. Pt presented to the ED only after purchasing a bottle of T ylenol which he planned to use. Chief Complaint "I'm doing really good. I was thinking about suicide yesterday, but I came in instead." History of Present Illness Trey Hernandez (Chuck) is a 74-year-old male admitted involuntarily for inpatient psychiatric treatment, after presenting to the ED reporting suicidal ideation with plan to overdose on Tylenol he had recently purchased. Patient is known to our unit from a lengthy inpatient hospitalization from 02/2019 through 05/2019. Patient was discharged to the [facility] as a diversionary plan to avoid State Hospitalization. Patient reportedly presented to the ED at the end of May 2019 with suicidal ideation, and was voluntarily admitted to [facility] for psychiatric treatment. It was reported he was hospitalized there for roughly 10 days prior to being discharged back to the [facility]. Patient presented to [facility] ED on 07/07/2019 expressing thoughts to complete suicide, admitting to purchasing a bottle of Tylenol with the intent to overdose. Patient was agreeable with having ED staff destroy the medication during his assessment. Patient was initially reported to be cooperative, requesting voluntary admission at [facility] for psychiatric treatment. During formal psychiatric assessment, the patient reportedly was no longer compliant with questions, and had been making statements about the "legal complications" associated with continuing to participate in the interview. At that time, it was reported that patient was no longer willing for inpatient psychiatric treatment, and a 302 was pursued based on suicidal ideation, act of furtherance, and refusal to comply with recommendation for inpatient psychiatric treatment. 302 Petitioning statement was completed, after patient changed his mind and began refusing inpatient psychiatric treatment - warrant provided by [facility]. Statement reads: "Trey reported that he bought a large bottle of Tylenol today with intentions of taking the whole bottle to kill himself. Pt has a history of paranoid schizophrenia. He has a history of inpatient psychiatric treatment. Pt also reported that he is hearing voices telling him to kill himself." Patient was referred to our facility, and the 302 commitment was upheld. Today, patient is reportedly cooperative and has been telling staff that he is interested in discharge. He states that he is no longer suicidal and would like to return home. Staff reports the patient is not demonstrating significant decompensation, and he has been friendly with staff. Patient was cooperative with psychiatric evaluation. He met with this provider in the office to discuss his presentation and treatment plans. Patient states that today he is feeling "really good." He does admit that he was considering suicide yesterday, stating that he had been experiencing auditory hallucinations that "I could not take it anymore." Patient is only able to provide vague information regarding his auditory hallucinations; however, he states there reduced at this time. Patient does admit that the hallucinations are commanding in nature; however, they did not encourage him to overdose on Tylenol, "that was my idea." Patient states that he did purchase a bottle of Tylenol with the intent to use it in an overdose, but states "I came here instead." Patient states that he has the outpatient support of a psychiatric nurse case manager, his [facility] staff, and the staff at psych rehab. Patient states that he attends psych rehab on Tuesdays and , and in between visits the library to utilize the computer. When asked what else patient does to fill up his schedule, he states "I think that is enough." Patient believes that he has been doing well outside of the hospital, and does not feel that medication adjustments are necessary at this time. Patient states "so I would like to go home today." Patient was cooperative with conversation with this provider, regarding the serious nature of his suicide consideration. Patient was asked for his patient's as we attempt to contact his outpatient supports to ensure safe and appropriate discharge planning. Patient was informed it is not likely that he will be discharged today, but that we would work with him to ensure full resolution of suicidal ideation and on development of an appropriate safety and discharge plan. Patient denies any other significant changes to his psychiatric history or symptoms. He does state that he had been feeling "unsteady" and was "having trouble walking" while at psych rehab. Patient states these concerns have improved significantly in the last several days. Although cooperative for the duration of our interview, patient does not provide considerable detail regarding his symptoms. He is willing to engage in treatment here on the unit, and is hoping for discharge relatively soon. Past Psychiatric History Current Psychiatric Diagnosis: Schizophrenia, paranoid type Outpatient Services: Psychiatrist - Dr. Alves PCP - Dr. Lopez Insurance Loss Adjuster - Shruti Shaw Previous Psych Admissions: [facility] - 05/[address] - 02/2019 - 05/[address] - 09/2016 Do You Have Access To A Gun?: No History of Previous Suicide Attempt: Yes (one prior overdose) Past Medication Trials: Per previous documentation: 1. Zyprexa 2. Risperdal 3. Abilify 4. Haldol - dystonia 5. Amitriptyline 6. Imipramine 7. Ambien 8. Thorazine - NMS 9. Temazepam 10.Cymbalta - GI symptoms 11.Navane 12.Loxitane 13.Invega 14.Latuda 15.Ativan 16.Xanax 17.Seroquel 18.Geodon Past Head Trauma/Neuro History History of Concussion/Seizure: No Allergies Allergy/AdvReac Type Severity Reaction Status Date / Time No Known Allergies Allergy Verified 07/07/19 14:53 Home Medications Home Medications Medication Instructions Recorded Confirmed Type benztropine 0.5 mg PO BID PRN #30 tab 05/25/19 07/07/19 Rx clonidine HCl 0.1 mg PO HS #30 tab 05/25/19 07/07/19 Rx magnesium oxide 400 mg PO DAILY #30 tab 05/25/19 07/07/19 Rx chlorpromazine 50 mg PO TID 07/07/19 07/07/19 History docusate sodium 100 mg PO BID 07/07/19 07/07/19 History sulfamethoxazole-trimethoprim 1 tab PO BID 07/07/19 07/07/19 History ziprasidone HCl 80 mg PO BIDM 07/07/19 07/08/19 History Family History Family History of: Alcoholism/Drug Abuse (father) Family Mental Health History Comment: Per previous 09/2016 admission - cousin with schizophrenia who committed suicide. Mother with schizophrenia. Alcohol History Hx of Alcohol Use Over the Past 12 Months: No AUDIT Total Score: 0 Denies any alcohol intake Smoking Use Have You Smoked or Used Tobacco Products in the Last 30 Days: Yes tobacco type: cigarettes Smoking Status: Current every day smoker Smoking packs per day: 1 Substance History Hx of Prescription Med Misuse Over the Past 12 Months: No Hx of Over the Counter Med Misuse Over the Past 12 Months: No Hx of Inhalent Misuse Over the Past 12 Months: No Hx of Organic Substance Use Over the Past 12 Months: No Hx of Illegal Substances/Street Drug Use Over Past 12 Months: No Problems as a Result of Past Substance Use: None Identified History of overusing his prescribed benzodiazepines; no reported concerns since 02/2019 admission Personal History Living Arrangements: [facility] ([facility]) Born In: [place], but moved frequently Highest Grade Completed: College ([employer]) 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) Marital Status: Single Number Of Children: None Beliefs That Will Affect Care: None Current Legal Problems: No Hx Legal Problems: No Hx Traumatic Life Events: No (denied on 09/2016 admission) Patient History Medical History Altered mental status (Acute) Altered mental status (Acute) Benzodiazepine abuse (Chronic) Closed head injury (Acute) Closed head injury (Acute) Dehydration (Acute) Fall (Acute) Fall (Acute) Hypertension Hypokalemia (Acute) Leukocytosis (Acute 08/14/13) Noncompliance (Chronic) Paranoia (Acute) Rhabdomyolysis (Acute 07/21/13) Scalp laceration (Acute) Scalp laceration (Acute) Scalp laceration (Acute) Schizophrenia (Chronic) Thought disorder (Acute) Tobacco use disorder (Chronic) Family History Other No pertinent family history Social History Preferred Language: Gibraltarian Communication Ability: Effective Flight Radio Officer Required: No Beliefs That Will Affect Care: None Feels Safe at Home: Yes Smoking Status: Current every day smoker Tobacco Type: cigarettes ; Review of Systems Review of Systems: Constitutional: reports mild instability while walking Cardiovascular: denied Respiratory: denied Gastrointestinal: denied Neurological: reports episodic dizziness in the mornings Psychiatric: denies symptoms other than stated above Total of at least 10 systems reviewed, pertinent positives as above and in HPI. Physical Exam Psychiatric: Orientation: alert, oriented x 3 and cooperative (and pleasant) Apperance: appropriately dressed, appropriately groomed (hair has been cut since last admission, neatly styled) and appeared stated age male of healthy appearing late, seated in no acute distress. Patient's attire is unique, but consistent with his usual dress. Patient is wearing a thermal long- sleeve top, laying pants, and sandals with socks. Level of hygiene and grooming appears appropriate. Eye Contact: good eye contact Motor Behavior: steady gait and station and no abnormal motor movements Speech: normal rate/r hythm/volume of speech (Monotone, spontaneous, but limited detail) Affect: euthymic affect (predominantly subdued, but does smile and joke at times) Mood: no depressed mood ("I'm real good") and no anxious mood Thought Process: goal directed thought process and clear/coherent thought process Thought Content: reality based without delusions (no delusional thought content verbalized during conversation); no hopelessness and no worthlessness Suicidal Thoughts: denies suicidal thoughts, denies suicidal plan and denies suicidal intent Admits to purchasing bottle of Tylenol with intent to overdose, but came to ED prior to acting further Homicidal Thoughts: denies homicidal thoughts Hallucinations: no auditory hallucinations (denies voices presently, stating "they change at times") Cognition: remote memory grossly intact, attention grossly intact and language grossly intact Insight: + fair insight (with regard to current situation and treatment needs) Likely limited overall, based on long history of psychiatric condition Judgement: + fair judgement (with regard to current situation and treatment needs) Likely limited overall, based on long history of psychiatric condition Vital Signs (Past 24 Hours): Last Vital Signs Temp 36.4 C L 07/08/19 06:49 Pulse 83 07/08/19 06:50 Resp 18 07/08/19 06:49 BP 106/62 07/08/19 06:50 Pulse Ox 98 07/07/19 17:08 Exam Statement: A physical exam was performed in the ER prior to admission to the unit by Dr. Dex Kennedy MD. I accept that physical as correct/medical clearance for the inpatient physical exam. Results & Data Laboratory Results Laboratory Results - last 24 hr 07/07/19 07/07/19 07/07/19 14:20 14:20 14:22 WBC 12.96 H RBC 4.78 Hgb 15.5 Hct 44.7 MCV 93.5 MCH 32.4 MCHC 34.7 RDW Std Deviation 44.7 RDW Coeff of Namita 13.0 Plt Count 307 MPV 8.7 Immature Gran % (Auto) 0.3 Neut % (Auto) 81.6 Lymph % (Auto) 9.5 Pope % (Auto) 7.5 Eos % (Auto) 0.9 Baso % (Auto) 0.2 Immature Gran # (Auto) 0.04 H Neut # (Auto) 10.58 H Lymph # (Auto) 1.23 Pope # (Auto) 0.97 H Eos # (Auto) 0.12 Baso # (Auto) 0.02 Sodium Potassium Chloride Carbon Dioxide Anion Gap BUN Creatinine Est Cr Clr Drug Dosing Est GFR ( Amer) Est GFR (Non-Af Amer) BUN/Creatinine Ratio Glucose Calcium Magnesium Total Bilirubin AST ALT Alkaline Phosphatase Total Protein Albumin Globulin Albumin/Globulin Ratio TSH Urine Color Yellow Urine Appearance Clear Urine pH 8.0 H Ur Specific Sumner 1.012 Urine Protein Negative Urine Glucose (UA) Negative Urine Ketones Negative Urine Blood Negative Urine Nitrite Negative Urine Bilirubin Negative Urine Urobilinogen Negative Ur Leukocyte Esterase Trace H Urine WBC (Auto) 1-5 Urine RBC (Auto) 0-4 U Hyaline Cast (Auto) 0 U Epithel Cells (Auto) 0-5 Urine Bacteria (Auto) Negative Salicylates Urine Opiates Screen Neg Ur Methadone, Qual Neg Acetaminophen Urine Barbiturates Neg Ur Phencyclidine (PCP) Neg U Amphetamin/Meth Scrn Neg MDMA (Ecstasy) Screen Neg U Benzodiazepines Scrn Neg Ur Cocaine Metabolite Neg U Marijuana (THC) Screen Neg Ethyl Alcohol mg/dL 07/07/19 07/07/19 07/07/19 14:22 14:22 14:23 WBC RBC Hgb Hct MCV MCH MCHC RDW Std Deviation RDW Coeff of Namita Plt Count MPV Immature Gran % (Auto) Neut % (Auto) Lymph % (Auto) Pope % (Auto) Eos % (Auto) Baso % (Auto) Immature Gran # (Auto) Neut # (Auto) Lymph # (Auto) Pope # (Auto) Eos # (Auto) Baso # (Auto) Sodium 137 Potassium 3.5 Chloride 102 Carbon Dioxide 27 Anion Gap 9.0 BUN 14 Creatinine 0.92 Est Cr Clr Drug Dosing Not Reportable Est GFR ( Amer) 95.3 Est GFR (Non-Af Amer) 82.2 BUN/Creatinine Ratio 15.7 Glucose 110 H Calcium 9.5 Magnesium 2.1 Total Bilirubin 0.4 AST 16 ALT 26 Alkaline Phosphatase 97 Total Protein 8.1 Albumin 3.9 Globulin 4.2 H Albumin/Globulin Ratio 0.9 TSH 2.250 Urine Color Urine Appearance Urine pH Ur Specific Sumner Urine Protein Urine Glucose (UA) Urine Ketones Urine Blood Urine Nitrite Urine Bilirubin Urine Urobilinogen Ur Leukocyte Esterase Urine WBC (Auto) Urine RBC (Auto) U Hyaline Cast (Auto) U Epithel Cells (Auto) Urine Bacteria (Auto) Salicylates < 1.7 L Urine Opiates Screen Ur Methadone, Qual Acetaminophen < 2 L Urine Barbiturates Ur Phencyclidine (PCP) U Amphetamin/Meth Scrn MDMA (Ecstasy) Screen U Benzodiazepines Scrn Ur Cocaine Metabolite U Marijuana (THC) Screen Ethyl Alcohol mg/dL < 3.0 Current Inpatient Medications Current Inpatient Medications: Current Inpatient Medications Acetaminophen (Tylenol) 650 mg PO Q4H PRN PRN Reason: Headache or Minor Fever Stop: 08/06/19 18:01 Al Hydrox/Mg Hydrox/Simethicone (Maalox) 30 ml PO Q4H PRN PRN Reason: GI Upset Stop: 08/06/19 18:01 Benztropine Mesylate (Cogentin) 0.5 mg PO BID PRN PRN Reason: EPS Stop: 08/06/19 18:11 Bismuth Subsalicylate (Kaopectate) 15 ml PO PRN PRN PRN Reason: Loose Stool Stop: 08/06/19 18:01 Chlorpromazine HCl (Thorazine) 50 mg PO TID [facility] Stop: 08/06/19 20:59 Last Admin: 07/07/19 21:13 Dose: 50 mg Documented by: Clonidine HCl (Catapres) 0.1 mg PO HS [facility] Stop: 08/06/19 20:59 Last Admin: 07/07/19 21:14 Dose: 0.1 mg Documented by: Docusate Sodium (Colace) 100 mg PO BID [facility] Stop: 08/06/19 20:59 Last Admin: 07/07/19 21:13 Dose: 100 mg Documented by: Hydroxyzine HCl (Vistaril) 50 mg PO HSZ PRN PRN Reason: sleep Stop: 08/06/19 18:27 Hydroxyzine HCl (Vistaril) 25 mg PO Q4H PRN PRN Reason: Anxiety Stop: 08/06/19 18:01 Magnesium Hydroxide (Milk Of Magnesia) 30 ml PO DAILY PRN PRN Reason: Constipation Stop: 08/06/19 18:01 Magnesium Oxide (Mag-Ox) 400 mg PO DAILY [facility] Stop: 08/07/19 08:59 Miscellaneous (Remove Nicoderm Patch) 1 ea N/A DAILY@0859 [facility] Stop: 08/08/19 08:58 Nicotine (Nicoderm Cq) 14 mg TD QAM [facility] Stop: 08/07/19 08:59 Olanzapine (Zyprexa) 10 mg IM Q6H PRN PRN Reason: Agitation Stop: 08/06/19 18:14 Sodium Chloride (Iron Nasal) 1 - 2 sprays NA PRN PRN PRN Reason: Nasal Dryness/Congestion Stop: 08/06/19 18:01 Ziprasidone (Geodon) 60 mg PO BIDM [facility] Stop: 08/07/19 07:59
[2019-07-08] MEDS ORDERED: NICOTINE 14 MG/24 HR PATCH TD SCH (09:00)
[2019-07-08] MEDS ORDERED: NICOTINE POLACRILEX 2 MG GUM MT PRN (11:59)
[2019-07-08] MEDS: NICOTINE 21 MG/24 HR TDSY TD SCH (13:15)
[2019-07-08] MEDS: ZIPRASIDONE HCL 80 MG CAP PO SCH (17:52)
[2019-07-08] MEDS: cloNIDine HCL 0.1 MG TAB PO SCH (21:16)
[2019-07-09] MEDS ORDERED: DESTROY THIS MEDICATION ONE (08:23)
[2019-07-09] MEDS: DOCUSATE SODIUM 100 MG CAP PO SCH (08:32)
[2019-07-09] MEDS: ZIPRASIDONE HCL 80 MG CAP PO SCH (08:32)
[2019-07-09] MEDS: CHLORPROMAZINE HCL 25 MG TABLET PO SCH (08:32)
[2019-07-09] MEDS: MAGNESIUM OXIDE 400 MG TAB PO SCH (08:32)
[2019-07-09] MEDS: NICOTINE 21 MG/24 HR TDSY TD SCH (08:35)
--- NOTE | 2019-07-09 09:17 | Discharge Summary ---
Date of Service July 09, 2019 History of Present Illness Trey Hernandez (Chuck) is a 74-year-old male admitted involuntarily for inpatient psychiatric treatment, after presenting to the ED reporting suicidal ideation with plan to overdose on Tylenol he had recently purchased. Patient is known to our unit from a lengthy inpatient hospitalization from 02/2019 through 05/2019. Patient was discharged to the [facility] as a diversionary plan to avoid State Hospitalization. Patient reportedly presented to the ED at the end of May 2019 with suicidal ideation, and was voluntarily admitted to [facility] for psychiatric treatment. It was reported he was hospitalized there for roughly 10 days prior to being discharged back to the [facility]. Patient presented to [facility] ED on 07/07/2019 expressing thoughts to complete suicide, admitting to purchasing a bottle of Tylenol with the intent to o verdose. Patient was agreeable with having ED staff destroy the medication during his assessment. Patient was initially reported to be cooperative, requesting voluntary admission at [facility] for psychiatric treatment. During formal psychiatric assessment, the patient reportedly was no longer compliant with questions, and had been making statements about the "legal complications" associated with continuing to participate in the interview. At that time, it was reported that patient was no longer willing for inpatient psychiatric treatment, and a 302 was pursued based on suicidal ideation, act of furtherance, and refusal to comply with recommendation for inpatient psychiatric treatment. 302 Petitioning statement was completed, after patient changed his mind and began refusing inpatient psychiatric treatment - warrant provided by [facility] [employer]. Statement reads: "Trey reported that he bought a large bottle of Tylenol today with intentions of taking the whole bottle to kill himself. Pt has a history of paranoid schizophrenia. He has a history of inpatient psychiatric treatment. Pt also reported that he is hearing voices telling him to kill himself." Patient was referred to our facility, and the 302 commitment was upheld. Today, patient is reportedly cooperative and has been telling staff that he is interested in discharge. He states that he is no longer suicidal and would like to return home. Staff reports the patient is not demonstrating significant decompensation, and he has been friendly with staff. Patient was cooperative with psychiatric evaluation. He met with this provider in the office to discuss his presentation and treatment plans. Patient states that today he is feeling "really good." He does admit that he was considering suicide yesterday, stating that he had been experiencing auditory hallucinations that "I could not take it anymore." Patient is only able to provide vague information regarding his auditory hallucinations; however, he states there reduced at this time. Patient does admit that the hallucinations are commanding in nature; however, they did not encourage him to overdose on Tylenol, "that was my idea." Patient states that he did purchase a bottle of Tylenol with the intent to use it in an overdose, but states "I came here instead." Patient states that he has the outpatient support of a psychiatric pillowcase maker, his [facility]R staff, and the staff at psych rehab. Patient states that he attends psych rehab on Tuesdays and , and in between visits the library to utilize the computer. When as ked what else patient does to fill up his schedule, he states "I think that is enough." Patient believes that he has been doing well outside of the hospital, and does not feel that medication adjustments are necessary at this time. Patient states "so I would like to go home today." Patient was cooperative with conversation with this provider, regarding the serious nature of his suicide consideration. Patient was asked for his patient's as we attempt to contact his outpatient supports to ensure safe and appropriate discharge planning. Patient was informed it is not likely that he will be discharged today, but that we would work with him to ensure full resolution of suicidal ideation and on development of an appropriate safety and discharge plan. Patient denies any other significant changes to his psychiatric history or symptoms. He does state that he had been feeling "unsteady" and was "having trouble walking" while at psych rehab. Patient states these concerns have improved significantly in the last several days. Although cooperative for the duration of our interview, patient does not provide considerable detail regarding his symptoms. He is willing to engage in treatment here on the unit, and is hoping for discharge relatively soon. Physical Exam Psychiatric Orientation: alert, oriented x 3 and cooperative (pleasant, participating in spontaneous conversation) Apperance: appropriately dressed (unique style, but consistent with baseline attire for patient), appropriately groomed and appeared stated age Eye Contact: good eye contact Motor Behavior: steady gait and station and no abnormal motor movements Speech: normal rate/rhythm/volume of speech (Spontaneous, but brief undetailed responses) Affect: + blunted affect (predominantly subdued but reactive in conversation - smiling appropriately ) Mood: no depressed mood ("I'm fine") and no anxious mood Thought Process: goal directed thought process, clear/coherent thought process and + concrete thought process Thought Content: reality based without delusions (no delusional thought content verbalized during conversation); no hopelessness and no worthlessness Suicidal Thoughts: denies suicidal thoughts and denies suicidal intent Homicidal Thoughts: denies homicidal thoughts Hallucinations: no auditory hallucinations (denies voices presently, stating "they change at times") Cognition: remote memory grossly intact, attention grossly intact and language grossly intact Insight: + fair insight (with regard to current situation and treatment needs) Judgement: + fair judgement (with regard to current situation and treatment needs) Vital Signs (Past 24 Hours) Last Vital Signs Temp 36.8 C 07/09/19 06:00 Pulse 80 07/09/19 06:25 Resp 18 07/09/19 06:00 BP 109/64 07/09/19 06:25 Pulse Ox 98 07/07/19 17:08 Principal Diagnosis - Schizophrenia, paranoid type - History of benzodiazepine abuse Psychiatric Data 74-year-old male admitted involuntarily for inpatient psychiatric treatment on 07/07/2019, after presenting to the ED with reports of suicidal ideation, plan to overdose on Tylenol, and reports of having purchased a bottle of Tylenol pr ior to presentation. This medication was destroyed in the emergency room with patient's permission. Patient is well-known to our unit from a lengthy psychiatric admission from 02/24/19 through 05/25/19. It was also reported the patient was admitted to [facility] for about 10 days, at the end of May 2019. Patient had denied continued suicidal ideation since being admitted to our unit. He reported that it was "a small mistake" and that he no longer has thoughts to end his life - pleased with himself that he came to the hospital before acting on these thoughts. Patient did admit that he had been hearing auditory hallucinations, stating he was "sick of it, I could not take it anymore." Over the course of his hospitalization, the patient reports that these auditory hallucinations have since quieted to a tolerable level. Patient was patient with staff as we ensure that contact was made with his outpatient supports, in order to ensure the appropriateness of discharge. Patient was continued on his current medication regimen, feeling it had been beneficial for him. Patient was continued on 80 mg of ziprasidone twice daily. The patient participated appropriately in group programming, and was pleasant in interactions with staff. He did not verbalize any delusional thought content beyond baseline over the course of his admission. After review with patient's outpatient psychiatric pillowcase maker and half-way staff at [facility], all parties believe patient would be appropriate for discharge home when he is able to contract for safety. Patient admits he is able to do so, denying continued suicidality. Patient is requesting to be discharged home. Based on review of patient's case and their current presentation, risk of harm to self or others is no longer perceived to be acute. Management of symptoms on an outpatient basis seems the most appropriate and least restrictive setting. Pt seems appropriate for discharge with recommendation for consistent follow-up with outpatient psychiatric prescriber and pillowcase maker. Pt verbalized understanding of discharge plan reviewed and is agreeable with plan to be discharged to [facility] today. Day of Discharge Assessment Patient's case was reviewed and discussed with nursing and social work. Contact has been made with patient's psychiatric pillowcase maker, as well as staff from the [facility]. All parties feel patient is appropriate for discharge if able to deny suicidal ideation. CRR has reported availability to apple picking supervisor the patient later this morning, discharge is being considered. Patient made a clear during intake process that he was no longer suicidal, and felt he did not require a long hospitalization. Outpatient supports confirm that the patient has been doing well overall, and do not feel that a long-term hospitalization would be beneficial for the patient. Patient was seen today to assess readiness for discharge. Patient states he is doing well, stating he has throwing up this time on the unit by "just sitting around I guess." Patient has been observed to be attending group programming throughout the day. Patient states that he is feeling "okay today, stating that yesterday was "fine." Patient denies any significant change in concern for "head buzzing" or reported "voices." He remains unable to better describe the symptoms. Patient is requesting to return home today, as he states he is still not experienced recurrence of suicidal ideation. He denies other needs or concerns that he feels need to be addressed prior to his discharge. Medication regimen was unchanged during this admission, but reviewed with the patient prior to discharge. He denies any specific concerns related to recommended medications. Discharge plan was reviewed with patient, who verbalized understanding and is agreeable with discharge home today. Patient states he would like to pay for a taxi back to the CR[facility], rather than waiting for staff to be available to pick him up. CRR confirmed that they felt this would be appropriate if patient was willing. ROS: Constitutional: denied Cardiovascular: denied Respiratory: denied Gastrointestinal: denied Neurological: denied Psychiatric: denies symptoms other than stated above Total of at least 10 systems reviewed, pertinent positives as above and in HPI. Transition of Care Transition Of Care Record: was reviewed with the patient Advance Directives Advance Directives Information Provided: Yes Advance Directives: No Mental Health Advance Directive: No Advance Directives on File: No Living Will: No Power of Aegis Console Operator Track: No Advance Directives Reason:: Declines as Mental Health Visit. Risk Factors Assessment Presenting risk factors reviewed on discharge. Precipitating stressors mitigated by: admission for inpatient psychiatric observation and treatment, attendance of therapeutic treatment groups, development of healthy and effective coping strategies, involvement of outpatient supports, completion of a safety plan, confirmation of extra medications being secured, treatment of medical conditions and education on diagnoses. Pt has demonstrated improvement in condition with regard to improvement in mood, resolution of SI, and coordination of care with outpatient pillowcase maker and CRR staff. At this time, patient is requesting discharge and is no longer considered to be at acute risk of harm to himself or others. Pt will be discharged with recommendation for ongoing outpatient psychiatric treatment. Male: Yes : Yes Do You Have Access To A Gun?: No Health Problems: No Mental Health Diagnoses: Yes Substance Use Disorders: No (historically) Previous Psychiatric Hospitalization: Yes Hopelessness: No Smoker: Yes Protective Factors Assessment Employed: No Tobacco Cessation at Discharge Tobacco Cessation Medication Prescribed at Discharge: Offered & Pt Refused Total Time Total Time Spent: Greater Than 30 Minutes Total Time Includes: Examination of the patient, Discharge Planning, Medication Reconciliation and Communication with other providers Discharge Data Lab Results 07/07/19 07/07/19 07/07/19 14:20 14:20 14:22 WBC 12.96 H RBC 4.78 Hgb 15.5 Hct 44.7 MCV 93.5 MCH 32.4 MCHC 34.7 RDW Std Deviation 44.7 RDW Coeff of Namita 13.0 Plt Count 307 MPV 8.7 Immature Gran % (Auto) 0.3 Neut % (Auto) 81.6 Lymph % (Auto) 9.5 [place] % (Auto) 7.5 Eos % (Auto) 0.9 Baso % (Auto) 0.2 Immature Gran # (Auto) 0.04 H Neut # (Auto) 10.58 H Lymph # (Auto) 1.23 [place] # (Auto) 0.97 H Eos # (Auto) 0.12 Baso # (Auto) 0.02 Sodium Potassium Chloride Carbon Dioxide Anion Gap BUN Creatinine Est Cr Clr Drug Dosing Est GFR ( Amer) Est GFR (Non-Af Amer) BUN/Creatinine Ratio Glucose Calcium Magnesium Total Bilirubin AST ALT Alkaline Phosphatase Total Protein Albumin Globulin Albumin/Globulin Ratio TSH Urine Color Yellow Urine Appearance Clear Urine pH 8.0 H Ur Specific [place] 1.012 Urine Protein Negative Urine Glucose (UA) Negative Urine Ketones Negative Urine Blood Negative Urine Nitrite Negative Urine Bilirubin Negative Urine Urobilinogen Negative Ur Leukocyte Esterase Trace H Urine WBC (Auto) 1-5 Urine RBC (Auto) 0-4 U Hyaline Cast (Auto) 0 U Epithel Cells (Auto) 0-5 Urine Bacteria (Auto) Negative Salicylates Urine Opiates Screen Neg Ur Methadone, Qual Neg Acetaminophen Urine Barbiturates Neg Ur Phencyclidine (PCP) Neg U Amphetamin/Meth Scrn Neg MDMA (Ecstasy) Screen Neg U Benzodiazepines Scrn Neg Ur Cocaine Metabolite Neg U Marijuana (THC) Screen Neg Ethyl Alcohol mg/dL 07/07/19 07/07/19 07/07/19 14:22 14:22 14:23 WBC RBC Hgb Hct MCV MCH MCHC RDW Std Deviation RDW Coeff of Namita Plt Count MPV Immature Gran % (Auto) Neut % (Auto) Lymph % (Auto) [place] % (Auto) Eos % (Auto) Baso % (Auto) Immature Gran # (Auto) Neut # (Auto) Lymph # (Auto) [place] # (Auto) Eos # (Auto) Baso # (Auto) Sodium 137 Potassium 3.5 Chloride 102 Carbon Dioxide 27 Anion Gap 9.0 BUN 14 Creatinine 0.92 Est Cr Clr Drug Dosing Not Reportable Est GFR ( Amer) 95.3 Est GFR (Non-Af Amer) 82.2 BUN/Creatinine Ratio 15.7 Glucose 110 H Calcium 9.5 Magnesium 2.1 Total Bilirubin 0.4 AST 16 ALT 26 Alkaline Phosphatase 97 Total Protein 8.1 Albumin 3.9 Globulin 4.2 H Albumin/Globulin Ratio 0.9 TSH 2.250 Urine Color Urine Appearance Urine pH Ur Specific [place] Urine Protein Urine Glucose (UA) Urine Ketones Urine Blood Urine Nitrite Urine Bilirubin Urine Urobilinogen Ur Leukocyte Esterase Urine WBC (Auto) Urine RBC (Auto) U Hyaline Cast (Auto) U Epithel Cells (Auto) Urine Bacteria (Auto) Salicylates < 1.7 L Urine Opiates Screen Ur Methadone, Qual Acetaminophen < 2 L Urine Barbiturates Ur Phencyclidine (PCP) U Amphetamin/Meth Scrn MDMA (Ecstasy) Screen U Benzodiazepines Scrn Ur Cocaine Metabolite U Marijuana (THC) Screen Ethyl Alcohol mg/dL < 3.0 Hospital Course (1) Suicidal ideation: 07/08 - Admitted to a locked inpatient behavioral health unit, on q15 minute safety checks - Encourage medication initiation/adjustments as indicated - Encourage participation in group and recreational therapies - Gather collateral information from outpatient providers - Suggest family meeting to involve outpatient supports in safety planning - Arrange appropriate aftercare (2) Schizophrenia: 07/08 - Continue home medications - need to confirm home dosing of ziprasidone - co nfirmed to be 80mg BIDM - Pt did receive two doses of ziprasidone 60mg, as we were unable to initially confirm his dose titration - Coordinate care with outpatient supports to discuss safety and discharge planning - Encourage participation in group and recreational programming - Encourage completion of a safety plan prior to discharge (3) Substance abuse: 07/08 - History of substance abuse, specifically overuse of benzodiazepines - Pt taken off all abusable substances during last admission to [facility]; none appear to have been restarted - Continue to avoid medications with high abuse potential - Coordinate with outpatient providers (4) Hypertension: 07/08 - Continue clonidine 0.1mg qHS - BP within normal limits today - monitor vitals daily Mental Health & Subst Abuse Tx Psychiatrist Name of Psychiatrist: [facility] - Dr. Alves Psychiatrist's Date of Appointment with Psychiatrist: 07/27/19 Psychiatric Appointment Comment: [id number], [place] [address] Psychiatrist Release of Information: Obtained, Reviewed and Signed Therapist Name of Therapist: None Votator Machine Operator Name of Votator Machine Operator: Shruti Mcbride Phone Number for Votator Machine Operator: Time of Appointment with Votator Machine Operator: Follow up as needed w/ your pillowcase makermanager commercial Appointment Comment: [phone], [place] [address] Votator Machine Operator Release of Information: Obtained, Reviewed and Signed Post Discharge Appointments Primary Care Physician Name Of Family Doctor: [facility] - Dr. Lopez Primary Care Time of Appointment with PCP: Please follow up as needed Provider Appointment Comment: [address], [address], [place] [address] Primary Care Release of Information: Obtained, Reviewed and Signed Smoking Cessation Counseling Tobacco Cessation Medication Prescribed at Discharge: Offered & Pt Refused Other #1: Name of Aftercare Appointment: JERRELL BRYAN Phone Number of Aftercare Appointment: [phone] Aftercare Appointment Comment: [address], [place], [place] Release of Information Aftercare Appointment: Obtained, Reviewed and Signed Contact Information Discharge Discharge [facility] [address] [place] Discharge Plan Discharge Items Patient Disposition: Trans Resident Long-Term Care Reason For Visit: SCHIZOPHRENIA Discharge Diagnosis: Schizophrenia Condition on Discharge: Fair Activity: Resume your previous activity Non-emergency contact: Primary Care Provider, Psychiatrist and Can Tender Call non-emergency contact if: you have any medication questions and your symptoms worsen Follow-up/Referrals: Jeff Lopez MD [Primary Care Provider] - Diet: Vegan (no animal product) Addtl Attending Provider Instructions: SPECIAL CARE INSTRUCTIONS: 1. Follow through with your scheduled aftercare appointments. If unable to keep an appointment, please call to reschedule. 2. Take your medication only as prescribed. Medication should not be changed or stopped without the approval of your doctor. In the event of worsening symptoms or concerns about side effects, contact your doctor immediately. 3. Utilize new healthy coping skills, anger management skills, and stress management skills learned during your hospitalization. Journal feelings and process them with a support person. Identify stressors or situations that may result in relapse, deterioration or inappropriate behaviors and develop a plan to deal with those issues. 4. If your coping skills are ineffective and you are in crisis, contact your outpatient providers for direction. If unable to reach your providers, please call the CAN HELP LINE AT or go to the closest Emergency Room. 5. Avoid alcohol and un-prescribed drugs. 6. You have been provided with the Mental Health Advance Directives Pamphlet for your review. AFTERCARE APPOINTMENTS: * Please call your insurance company prior to your scheduled appointment to confirm your aftercare providers are covered. Take your insurance information to your appointments. WHO TO CALL AND WHEN: Medical Emergencies: For questions or emergencies related to your hospital stay, please contact the Inpatient Behavioral Health Unit at [phone]. A investment banking manager is on-call 11/03 for the Behavioral Health Unit for emergencies At any time you feel your situation is an emergency, you may also call 911 immediately. Your Discharge Instructions noted above were prepared by provider Belinda Jones PA-C. Pending Studies at Discharge: No Studies:: Patient is requesting PCP referral for neurology after discharge, reporting concern for "head buzzing" and may benefit from cognitive evaluation. Stand-Alone Forms: My [facility] [place], Suicide Prevention Resources Skilled Items Patient informed of condition?: Yes DNR: No Discharge Level of Care: Other Communicable Disease: No Discharge Prognosis: Stable Lines: None Urinary Catheter: No Medications and DC Order Prescriptions: Continued magnesium oxide 400 mg (241.3 mg magnesium) Tablet 400 mg PO DAILY Qty: 30 RF: 0 clonidine HCl 0.1 mg Tablet 0.1 mg PO HS Qty: 30 RF: 0 benztropine 0.5 mg tablet 0.5 mg PO BID PRN (Reason: EPS) Qty: 30 RF: 0 ziprasidone HCl 80 mg capsule 80 mg PO BIDM RF: 0 docusate sodium 100 mg capsule 100 mg PO BID RF: 0 chlorpromazine 50 mg tablet 50 mg PO TID RF: 0 Discontinued sulfamethoxazole-trimethoprim 800-160 mg tablet 1 tab PO BID RF: 0 Discharge Orders: Discharge Order (Routine); Ordered 07/09/19 Ordered By: Belinda Jones Admission Data Admit Date/Time: 07/07/19 18:03 Attending Provider: Alison Campos Admit Provider: Alison Campos Primary Care Provider: Jeff Lopez Other Interventions: Discharge Summary Assessment (RN) Last Done: 07/09/19 09:10 PSY Interdisciplinary Discharge Planning Last Done: 07/09/19 09:10 DC Date/Time DO NOT enter until pt leaves facility: 07/09/19 09:50 Coding Level of Care Code 13334 D/C day mgmt > 30 min Diagnoses Suicidal ideation R45.851 Schizophrenia F20.0 Schizophrenia type: paranoid schizophrenia Substance abuse F19.10 Hypertension I10 Hypertension type: essential hypertension
== END 2019-07-09 09:50 | DRG 885 ==
LOC: ED 13:18 → 3S 18:03

== ENCOUNTER 2019-09-11 11:25 | Inpatient (IN) ==
[2019-09-11 12:46] LABS: Basophils # (auto) 0.02 K/uL (0-0.2); Basophils % (auto) 0.4 %; Eosinophils # (auto) 0.31 K/uL (0-0.5); Eosinophils % (auto) 5.8 %; Hematocrit (blood only) 42.8 % (42-52); Hemoglobin 14.5 g/dL (14.0-18.0); Immature Granulocytes # (auto) 0.01 K/uL (0.00-0.02); Immature Granulocytes % (auto) 0.2 %; Lymphocytes # (auto) 0.99 K/uL (1.2-3.4); Lymphocytes % (auto) 18.5 %; Mean Corpuscular Hemoglobin 31.7 pg (25-34); Mean Corpuscular Hgb Conc 33.9 g/dL (32-36); Mean Corpuscular Volume 93.4 fL (80-100); Mean Platelet Volume 8.5 fL (7.4-10.4); Monocytes # (auto) 0.58 K/uL (0.11-0.59); Monocytes % (auto) 10.8 %; Neutrophils # (auto) 3.45 K/uL (1.4-6.5); Neutrophils % (auto) 64.3 %; Platelet Count 241 K/uL (130-400); Red Blood Count 4.58 M/uL (4.7-6.1); White Blood Count 5.36 K/uL (4.8-10.8)
[2019-09-11 13:02] LABS: Appearance Urine Clear (Clear); Bilirubin Urine Negative (Negative); Blood Urine Trace (Negative); Color Urine Yellow; Glucose Urine UA Negative (Negative); Ketones Urine Negative (Negative); Leukocyte Esterase Urine Negative (Negative); Nitrite Urine Negative (Negative); Protein Urine Negative (Negative); Specific Gravity Urine 1.006 (1.000-1.030); Urobilinogen Urine Negative (Negative)
[2019-09-11 13:16] LABS: Acetaminophen < 2 ug/ml (10-30); Salicylate < 1.7 mg/dl (2.8-20)
[2019-09-11 13:17] LABS: Albumin Globulin Ratio 0.9 (0.9-2); Albumin Level 3.7 gm/dl (3.4-5.0); BUN Creatinine Ratio 19.7 (10-20); Bilirubin,Total 0.4 mg/dl (0.2-1); Creatinine Clr Calc Pharmacy 67.6 ml/min; Est GFR (African American) 96.6; Est GFR (Non-African American) 83.3; Potassium 3.7 mmol/L (3.5-5.1); Thyroid Stimulating Hormone 1.42 uIu/ml (0.300-4.500); Total Protein 7.7 gm/dl (6.4-8.2)
[2019-09-11 13:21] LABS: Bacteria Urine Negative (Negative); Epithelial Cell Urine 0-5 /lpf (0-5); RBC Urine 0-4 /hpf (0-4); WBC Urine 0-5 /hpf (0-5)
--- NOTE | 2019-09-11 13:23 | CT Scan Report ---
CT SCAN OF THE BRAIN WITHOUT IV CONTRAST CLINICAL HISTORY: Change in mental status. COMPARISON STUDY: CT of the brain dated 09/10/2019. TECHNIQUE: Unenhanced axial CT scan of the brain is performed from the vertex to the skull base. A do se lowering technique was utilized adhering to the principles of ALARA. CT DOSE: 638.56 mGycm FINDINGS: Brain parenchyma: There are age-related involutional changes noting mild subcortical and periventric ular microangiopathic change. There is no hemorrhage, mass effect, or evidence of acute territorial i schemia by CT criteria. Andres-white matter differentiation is preserved. No extra-axial fluid collecti on is seen. Ventricles, sulci, cisterns: Prominent secondary to involutional change. Intracranial vasculature: There is atherosclerotic calcification of the cavernous carotid arteries. 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 The calvarium appears intac t. Sinuses and mastoids: There is mild mucosal thickening in the ethmoid and sphenoid sinuses. Frontal s ecretions are present within the left maxillary antrum. The mastoid air cells are well pneumatized. Orbits: The bony orbits are grossly intact. IMPRESSION: 1. There is no hemorrhage, mass effect, or evidence of acute territorial ischemia by CT criteria. No change from yesterday. 2. Paranasal sinus disease as above. Correlate clinically for evidence of acute sinusitis. ACT 112: Negative or not required by law. Electronically signed by: Shaquille Todd M.D. 09/11/2019 1:06 PM
[2019-09-11 13:28] LABS: Amphetamines+Metham, Urine Neg (Neg); Barbiturates, Urine Neg (Neg); Benzodiazepine, Urine Neg (Neg); Cocaine, Urine Neg (Neg); MDMA (Ecstacy), Urine Neg (Neg); Methadone, Urine Neg (Neg); Opiate, Urine Neg (Neg); Phencyclidine, Urine Neg (Neg)
--- NOTE | 2019-09-11 15:15 | Emergency Department Note ---
Entered by Abdirizak Durham acting as a scribe for Feliciano Stover History of Present Illness General Chief complaint: Mental Health Evaluation Stated complaint: BUZZING IN HEAD, SUICIDAL Time Seen by Provider: 09/11/19 12:04 Source: patient and other (case management) History of Present Illness Onset (ago): year(s) (few) Location: ears, left and right Pain Consistency: + constant Quality: + other (ringing) Associated symptoms: + denies other symptoms (changes to his appetite) and + other (voices in his head, less energetic, difficulty concentrating, lost interest, cannot sleep) The patient is a 74 y/o male who presents to the ED w/ CC of constant ringing in his ears beginning a few years ago. Case management states the patient wants to kill himself and OD on Tylenol because of the constant ringing in his ears. He has a history of bipolar disorder and schizo-affect disorder. The patient states he has a ringing sound in his head for several years. He reports he has been evaluated by physicians before, and they ignore it. The patient notes he has not been on medication for it either, and he also has voices tell him they want to kill him. He states the voices want him to commit suicide. The patient reports he has a history of taking 100 aspirin tablets a year ago and has not had any aspirin in the past few days. He notes he is on Geodon and has not missed a dose. The patient states his psychiatrist is Dr. Dunn, and he was last hospital ized for his psychiatric health a month ago. He reports he cannot sleep and has lost interest in things that normally give him tala. The patient notes he is not guilty of anything and has been less energetic with difficulty concentrating. He denies changes to his appetite. The patient notes he has been feeling mildly depressed. He denies drug use, alcohol use, and having access to weapons. Home Medications Home Medications Medication Instructions Recorded Confirmed Type clonidine HCl 0.1 mg PO HS #30 tab 05/25/19 09/11/19 Rx ziprasidone HCl 80 mg PO BIDM 07/07/19 09/11/19 History amoxicillin 500 mg PO BID 09/10/19 09/11/19 History chlorpromazine 100 mg PO TID 09/10/19 09/11/19 History magnesium oxide 400 mg PO DAILY 09/10/19 09/11/19 History melatonin 10 mg PO HS 09/10/19 09/11/19 History Allergies Allergy/AdvReac Type Severity Reaction Status Date / Time No Known Allergies Allergy Verified 09/10/19 15:46 Past Med/Surg History Medical History Benzodiazepine abuse (Chronic) Closed head injury Fall Hypertension Hypokalemia Leukocytosis (08/14/13) Rhabdomyolysis (07/21/13) Scalp laceration Schizophrenia (Chronic) Tobacco use disorder (Chronic) Surgical History No pertinent past surgical history Family History Other No pertinent family history Social History Preferred Language: Danish Communication Ability: Effective Paper Products Printer Required: No Beliefs That Will Affect Care: None Feels Safe at Home: Yes Smoking Status: Former smoker Tobacco Type: cigarettes ; Review of Systems See HPI for pertinent positives & negatives. and A total of 10 systems reviewed and were otherwise negative Physical Exam Vital Signs Vital Signs - 24 hr 09/11/19 11:29 09/11/19 13:10 09/11/19 15:33 Temperature 36.4 C L Temperature Source Oral Pulse Rate 96 H Pulse Rate [Left Finger] 80 86 Pulse Rhythm Regular Pulse Strength Normal Respiratory Rate 16 20 17 Respiratory Effort / Characteristics Non-Labored Non-Labored Spontaneous Respiratory Depth Normal Normal Respiratory Pattern Regular Blood Pressure 133/80 Blood Pressure [Left Arm] 141/74 H 140/80 Blood Pressure Mean 97 Blood Pressure Mean [Left Arm] 96 100 Blood Pressure Position Sitting Blood Pressure Position [Left Arm] Lying Pulse Oximetry 95 95 99 Oxygen Delivery Method Room Air Room Air Room Air Sepsis Recent Fever Within 48 Hours No Sepsis Action Taken by Nursing No Action Required GENERAL: He is oriented to person, place, and time. He appears well-developed and well-nourished. He does not appear distressed. HENT: Exam performed. - Head: Normocephalic and atraumatic. - Right Ear: External ear normal. No mastoid tenderness. TM andres and pearly. - Left Ear: External ear normal. No mastoid tenderness. TM andres and pearly. - Mouth/Throat: The oropharynx is clear and moist. No trismus in the jaw. No den samuel abscesses or uvula swelling. No oropharyngeal exudate or tonsillar abscesses. EYES: Conjunctivae and EOM are normal. Pupils are equal, round, and reactive to light. Right eye exhibits no discharge. Left eye exhibits no discharge. No scleral icterus. NECK: Normal range of motion. Neck supple. No JVD present. No spinous process tenderness present. No carotid bruit present. No rigidity. No tracheal deviation and normal range of motion present. No Brudzinski's sign and no Kernig's sign noted. CV: Normal rate, regular rhythm, normal heart sounds and intact distal pulses. There is no peripheral edema. Palpable radial pulses bue. PULM/CHEST: Effort normal and breath sounds normal. No respiratory distress. No stridor. He has no wheezes. He has no rales. - Chest Wall: He exhibits no tenderness. ABD: The abdomen is soft. Bowel sounds are normal. He has no distension. No mass is present. There is no tenderness. There is no rebound, no guarding, no Correa's sign and no tenderness at McBurney's point. Rovsig negative. MUSC/SKEL: Normal range of motion. There is no peripheral edema, tenderness or deformity. LYMPH: No cervical adenopathy. NEURO: He is alert and oriented to person, place, and time. He has normal strength. No cranial nerve deficit or sensory deficit. Coordination and gait no rmal. GCS eye subscore is 4. GCS verbal subscore is 5. GCS motor subscore is 6. Cerebellar tests wnl. SKIN: Skin is warm and dry. He is not diaphoretic. PSYCH: He has a bizarre mood and affect. He is suicidal and experiencing auditory hallucinations. Course Course 1221: Past medical records reviewed. The patient was evaluated in room A05. A complete history and physical exam was performed. 1528: Vital signs stable. Patient medically cleared. The patient was accepted by [address] [place] [address] for inpatient psychiatric treatment. Medical Decision Making Medical Records Attestation: I reviewed the patient's medical records. Home Medications Current Medication List: was personally reviewed by me Laboratory Data Attestation: I reviewed the patient's lab results. Result diagrams: 09/11/19 12:30 09/11/19 12:30 Lab Results 09/11/19 09/11/19 09/11/19 Range/Units 11:30 11:30 12:30 WBC 5.36 (4.8-10.8) K/uL RBC 4.58 L (4.7-6.1) M/uL Hgb 14.5 (14.0-18.0) g/dL Hct 42.8 (42-52) % MCV 93.4 (80-100) fL MCH 31.7 (25-34) pg MCHC 33.9 (32-36) g/dL RDW Std Deviation 44.0 (36.4-46.3) fL RDW Coeff of Namita 13.0 (11.5-14.5) % Plt Count 241 (130-400) K/uL MPV 8.5 (7.4-10.4) fL Immature Gran % (Auto) 0.2 % Neut % (Auto) 64.3 % Lymph % (Auto) 18.5 % Archer % (Auto) 10.8 % Eos % (Auto) 5.8 % Baso % (Auto) 0.4 % Immature Gran # (Auto) 0.01 (0.00-0.02) K/uL Neut # (Auto) 3.45 (1.4-6.5) K/uL Lymph # (Auto) 0.99 L (1.2-3.4) K/uL Archer # (Auto) 0.58 (0.11-0.59) K/uL Eos # (Auto) 0.31 (0-0.5) K/uL Baso # (Auto) 0.02 (0-0.2) K/uL Sodium (136-145) mmol/L Potassium (3.5-5.1) mmol/L Chloride (98-107) mmol/L Carbon Dioxide (21-32) mmol/L Anion Gap (3-11) BUN (7-18) mg/dl Creatinine (0.6-1.4) mg/dl Est Cr Clr Drug Dosing ml/min Est GFR ( Amer) Est GFR (Non-Af Amer) BUN/Creatinine Ratio (10-20) Glucose (70-99) mg/dl Calcium (8.5-10.1) mg/dl Total Bilirubin (0.2-1) mg/dl AST (15-37) U/L ALT (12-78) U/L Alkaline Phosphatase (45-117) U/L Total Protein (6.4-8.2) gm/dl Albumin (3.4-5.0) gm/dl Globulin (2.5-4.0) gm/dl Albumin/Globulin Ratio (0.9-2) TSH (0.300-4.500) uIu/ml Urine Color Yellow Urine Appearance Clear (Clear) Urine pH 7.0 (4.5-7.5) Ur Specific Kihei 1.006 (1.000-1.030) Urine Protein Negative (Negative) Urine Glucose (UA) Negative (Negative) Urine Ketones Negative (Negative) Urine Blood Trace H (Negative) Urine Nitrite Negative (Negative) Urine Bilirubin Negative (Negative) Urine Urobilinogen Negative (Negative) Ur Leukocyte Esterase Negative (Negative) Urine RBC 0-4 (0-4) /hpf Urine WBC 0-5 (0-5) /hpf Ur Epithelial Cells 0-5 (0-5) /lpf Urine Bacteria Negative (Negative) Nasal Screen MRSA (PCR) (Negative) Salicylates (2.8-20) mg/dl Urine Opiates Screen Neg (Neg) Ur Methadone, Qual Neg (Neg) Acetaminophen (10-30) ug/ml Urine Barbiturates Neg (Neg) Ur Phencyclidine (PCP) Neg (Neg) U Amphetamin/Meth Scrn Neg (Neg) MDMA (Ecstasy) Screen Neg (Neg) U Benzodiazepines Scrn Neg (Neg) Ur Cocaine Metabolite Neg (Neg) U Marijuana (THC) Screen Neg (Neg) Ethyl Alcohol mg/dL (0-3) mg/dl 09/11/19 09/11/19 09/11/19 Range/Units 12:30 12:30 12:30 WBC (4.8-10.8) K/uL RBC (4.7-6.1) M/uL Hgb (14.0-18.0) g/dL Hct (42-52) % MCV (80-100) fL MCH (25-34) pg MCHC (32-36) g/dL RDW Std Deviation (36.4-46.3) fL RDW Coeff of Namita (11.5-14.5) % Plt Count (130-400) K/uL MPV (7.4-10.4) fL Immature Gran % (Auto) % Neut % (Auto) % Lymph % (Auto) % Archer % (Auto) % Eos % (Auto) % Baso % (Auto) % Immature Gran # (Auto) (0.00-0.02) K/uL Neut # (Auto) (1.4-6.5) K/uL Lymph # (Auto) (1.2-3.4) K/uL Archer # (Auto) (0.11-0.59) K/uL Eos # (Auto) (0-0.5) K/uL Baso # (Auto) (0-0.2) K/uL Sodium 139 (136-145) mmol/L Potassium 3.7 (3.5-5.1) mmol/L Chloride 107 (98-107) mmol/L Carbon Dioxide 29 (21-32) mmol/L Anion Gap 3.0 (3-11) BUN 18 (7-18) mg/dl Creatinine 0.91 (0.6-1.4) mg/dl Est Cr Clr Drug Dosing 67.6 ml/min Est GFR ( Amer) 96.6 Est GFR (Non-Af Amer) 83.3 BUN/Creatinine Ratio 19.7 (10-20) Glucose 142 H (70-99) mg/dl Calcium 9.0 (8.5-10.1) mg/dl Total Bilirubin 0.4 (0.2-1) mg/dl AST 11 L (15-37) U/L ALT 21 (12-78) U/L Alkaline Phosphatase 90 (45-117) U/L Total Protein 7.7 (6.4-8.2) gm/dl Albumin 3.7 (3.4-5.0) gm/dl Globulin 4.0 (2.5-4.0) gm/dl Albumin/Globulin Ratio 0.9 (0.9-2) TSH 1.420 (0.300-4.500) uIu/ml Urine Color Urine Appearance (Clear) Urine pH (4.5-7.5) Ur Specific Kihei (1.000-1.030) Urine Protein (Negative) Urine Glucose (UA) (Negative) Urine Ketones (Negative) Urine Blood (Negative) Urine Nitrite (Negative) Urine Bilirubin (Negative) Urine Urobilinogen (Negative) Ur Leukocyte Esterase (Negative) Urine RBC (0-4) /hpf Urine WBC (0-5) /hpf Ur Epithelial Cells (0-5) /lpf Urine Bacteria (Negative) Nasal Screen MRSA (PCR) (Negative) Salicylates < 1.7 L (2.8-20) mg/dl Urine Opiates Screen (Neg) Ur Methadone, Qual (Neg) Acetaminophen < 2 L (10-30) ug/ml Urine Barbiturates (Neg) Ur Phencyclidine (PCP) (Neg) U Amphetamin/Meth Scrn (Neg) MDMA (Ecstasy) Screen (Neg) U Benzodiazepines Scrn (Neg) Ur Cocaine Metabolite (Neg) U Marijuana (THC) Screen (Neg) Ethyl Alcohol mg/dL < 3.0 (0-3) mg/dl 09/11/19 Range/Units 16:30 WBC (4.8-10.8) K/uL RBC (4.7-6.1) M/uL Hgb (14.0-18.0) g/dL Hct (42-52) % MCV (80-100) fL MCH (25-34) pg MCHC (32-36) g/dL RDW Std Deviation (36.4-46.3) fL RDW Coeff of Namita (11.5-14.5) % Plt Count (130-400) K/uL MPV (7.4-10.4) fL Immature Gran % (Auto) % Neut % (Auto) % Lymph % (Auto) % Archer % (Auto) % Eos % (Auto) % Baso % (Auto) % Immature Gran # (Auto) (0.00-0.02) K/uL Neut # (Auto) (1.4-6.5) K/uL Lymph # (Auto) (1.2-3.4) K/uL Archer # (Auto) (0.11-0.59) K/uL Eos # (Auto) (0-0.5) K/uL Baso # (Auto) (0-0.2) K/uL Sodium (136-145) mmol/L Potassium (3.5-5.1) mmol/L Chloride (98-107) mmol/L Carbon Dioxide (21-32) mmol/L Anion Gap (3-11) BUN (7-18) mg/dl Creatinine (0.6-1.4) mg/dl Est Cr Clr Drug Dosing ml/min Est GFR ( Amer) Est GFR (Non-Af Amer) BUN/Creatinine Ratio (10-20) Glucose (70-99) mg/dl Calcium (8.5-10.1) mg/dl Total Bilirubin (0.2-1) mg/dl AST (15-37) U/L ALT (12-78) U/L Alkaline Phosphatase (45-117) U/L Total Protein (6.4-8.2) gm/dl Albumin (3.4-5.0) gm/dl Globulin (2.5-4.0) gm/dl Albumin/Globulin Ratio (0.9-2) TSH (0.300-4.500) uIu/ml Urine Color Urine Appearance (Clear) Urine pH (4.5-7.5) Ur Specific Ki[place] (1.000-1.030) Urine Protein (Negative) Urine Glucose (UA) (Negative) Urine Ketones (Negative) Urine Blood (Negative) Urine Nitrite (Negative) Urine Bilirubin (Negative) Urine Urobilinogen (Negative) Ur Leukocyte Esterase (Negative) Urine RBC (0-4) /hpf Urine WBC (0-5) /hpf Ur Epithelial Cells (0-5) /lpf Urine Bacteria (Negative) Nasal Screen MRSA (PCR) Negative (Negative) Salicylates (2.8-20) mg/dl Urine Opiates Screen (Neg) Ur Methadone, Qual (Neg) Acetaminophen (10-30) ug/ml Urine Barbiturates (Neg) Ur Phencyclidine (PCP) (Neg) U Amphetamin/Meth Scrn (Neg) MDMA (Ecstasy) Screen (Neg) U Benzodiazepines Scrn (Neg) Ur Cocaine Metabolite (Neg) U Marijuana (THC) Screen (Neg) Ethyl Alcohol mg/dL (0-3) mg/dl Imaging Data Radiologist's Impression: Radiology results as stated below per my review and the radiologist's interpretation: CT SCAN OF THE BRAIN WITHOUT IV CONTRAST CLINICAL HISTORY: Change in mental status. COMPARISON STUDY: CT of the brain dated 09/10/2019. TECHNIQUE: Unenhanced axial CT scan of the brain is performed from the vertex to the skull base. A dose lowering technique was utilized adhering to the principles of ALARA. CT DOSE: 638.56 mGycm FINDINGS: Brain parenchyma: There are age-related involutional changes noting mild subcortical and periventricular microangiopathic change. There is no hemorrhage, mass effect, or evidence of acute territorial ischemia by CT criteria. Andres- white matter differentiation is preserved. No extra-axial fluid collection is seen. Ventricles, sulci, cisterns: Prominent secondary to involutional change. Intracranial vasculature: There is atherosclerotic calcification of the cavernous carotid arteries. 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 The calvarium appears intact. Sinuses and mastoids: There is mild mucosal thickening in the ethmoid and sphenoid sinuses. Frontal secretions are present within the left maxillary antrum. The mastoid air cells are well pneumatized. Orbits: The bony orbits are grossly intact. IMPRESSION: 1. There is no hemorrhage, mass effect, or evidence of acute territorial ischemia by CT criteria. No change from yesterday. 2. Paranasal sinus disease as above. Correlate clinically for evidence of acute sinusitis. ACT 112: Negative or not required by law. Electronically signed by: Shaquille Todd M.D. 09/11/2019 1:06 PM ECG Data Attestation: I personally reviewed and interpreted this ECG as follows: Indication: + toxicologic Rate (beats per minute): 84 Rhythm: + sinus rhythm ECG Intervals/blocks: + Normal QRS, + Normal MS and + Normal QT-c ECG ST segments: no ST depression and no ST elevation Blood Pressure Blood Pressure Findings: Elevated blood pressure Blood Pressure Disposition: further management by hospitalist [facility] Narrative Vital signs stable. Patient medically cleared. The patient was accepted by [address] [place] [address] for inpatient psychiatric treatment. Impression & Plan Suicidal ideations, Auditory hallucinations Discharge Plan Visit Data Chief Complaint: Mental Health Evaluation Stated Complaint: BUZZING IN HEAD, SUICIDAL ED Provider: Feliciano Stover Discharge Problem: Suicidal ideations, Auditory hallucinations Patient Disposition: Transfer Behavioral Health Fac Discharge Instructions Interventions: ED Discharge Assessment Last Done: 09/11/19 18:16 The scribe's documentation has been prepared under my direction and personally reviewed by me in its entirety. I confirm that the note above accurately reflects all work, treatment, procedures, and medical decision making performed by me.
[2019-09-11] MEDS ORDERED: ALUMINUM/MAGNESIUM SUSP 30 ML UDC PO PRN (18:24)
[2019-09-11] MEDS ORDERED: SODIUM CHLORIDE 0.65% NA SOLN 45 ML (OCEAN) PRN (18:24)
[2019-09-11] MEDS ORDERED: ACETAMINOPHEN 325 MG TAB PO PRN (18:24)
[2019-09-11] MEDS ORDERED: MAGNESIUM HYDROXIDE SUSP 30 ML UDC PO PRN (18:24)
[2019-09-11] MEDS ORDERED: BISMUTH SUBSALICYLATE PER ML OMNICELL CHARGE PO PRN (18:24)
[2019-09-11] MEDS: cloNIDine HCL 0.1 MG TAB PO SCH (21:04)
[2019-09-11] MEDS: AMOXICILLIN 500 MG CAP PO SCH (21:04)
[2019-09-11] MEDS: CHLORPROMAZINE HCL 100 MG TABLET PO SCH (21:04)
--- NOTE | 2019-09-12 06:31 | Electrocardiogram Report ---
Test Reason : Blood Pressure : / mmHG Vent. Rate : 084 BPM Atrial Rate : 084 BPM P-R Int : 174 ms QRS Dur : 106 ms QT Int : 398 ms P-R-T Axes : 044 032 066 degrees QTc Int : 470 ms Normal sinus rhythm Nonspecific ST abnormality Abnormal ECG When compared with ECG of 15-JUN-2019 18:00, No significant change was found Confirmed by Tarik Marrero ([id number]) on 09/12/2019 6:30:47 AM Referred By: REFERRED SELF Confirmed By:Tarik Marrero
--- NOTE | 2019-09-12 08:42 | History & Physical ---
Date of Service September 12, 2019 Impression / Recommendations Impression 74-year-old male admitted voluntarily for inpatient psychiatric treatment with reports of suicidal ideation related to auditory hallucinations and "neurological problems." Pt verbalized having "no choice but to kill myself" due to frustration with dealing with these symptoms. He is unable to contract for safety outside of the inpatient setting, making psychiatric hospitalization medically necessary at this time. Dr. Katina Andrews was directly involved in review and discussion of the patient's case and participated in medical decision making regarding treatment recommendations. (1) Suicidal ideations: 09/12 - Admitted to a locked inpatient behavioral health unit, on q15 minute safety checks - Encourage medication initiation/adjustments as indicated - Encourage participation in group and recreational therapies - Gather collateral information from outpatient providers - Suggest family meeting to involve outpatient supports in safety planning - Arrange appropriate aftercare (2) Schizophrenia: 09/12 - Continue home dose of ziprasidone 80mg BID - Discontinue chlorpromazine, as patient feels it has been ineffective - Will initiate mirtazapine 7.5mg to assist with sleep, may also provide off- label benefit for anxiety symptoms. Risks, benefits, and potential side effects were reviewed. Pt verbalized understanding and was agreeable with beginning the medication - Consider augmenting with another antipsychotic medication to further target auditory hallucinations - Fasting glucose and lipid panel obtained in 02/2019 - all values WNL - Will continue to monitor for reported "neurological problems" at this time; determine if inpatient neurology consultation is indicated based on observations - Coordinate care with patient's outpatient psychiatric supports Schizophrenia type: paranoid schizophrenia Qualified Code(s): F20.0 - Paranoid schizophrenia (3) Substance abuse: 09/12 - History of substance abuse, specifically benzodiazepines - Continue to refrain from prescribing medication with abuse potential - Continue to coordinate care with outpatient providers (4) Hypertension: 09/12 - Continue clonidine 0.1mg qHS - BP within normal limits Hypertension type: essential hypertension Qualified Code(s): I10 - Essential (primary) hypertension Risk Factors Assessment Do You Have Access To A Gun?: No Protective Factors Assessment Employed: No Psychiatric History Identifying Data TREY ROBERTO is a 74-year-old M who currently lives in [place] at the [facility]. Pt has a history of schizophrenia, and was admitted on 09/11/19 17:32 on a 201 voluntary commitment for "neurological problems" and auditory hallucinations commanding patient to commit suicide. Chief Complaint "I've been having neurological problems. Problems walking and writing, my legs jumping all around." History of Present Illness Trey Roberto (Chuck) is a 74-year-old male admitted voluntarily for inpatient psychiatric treatment on 09/11/2019 after presenting to the ED with reports of suicidal ideation. Patient has a diagnosis of schizophrenia, and verbalized that he was experiencing auditory hallucinations commanding him to harm himself. Patient states he was also experiencing "neurological problems." Patient did inform this provider that the voices have told him they are causing the neurological problems, "they are making it happen so that I commit suicide." Patient had verbalized thoughts to overdose on Tylenol while in the emergency room, he is now denying a formal plan. Patient is, however, unable to contract for safety outside of the hospital stating, "they just kept getting worse, committing suicide is the only thing I can do to make them stop." The patient admits to difficulty sleeping for the past several weeks due to the presence of these voices, along with a "buzzing in my head." Patient states that it has also been difficult for him to concentrate. He does state "oddly enough, the voices went into complete remission for about 8 hours 3 days ago." Patient states that at that time, the voices told him they were giving up, but that they did come back stronger after about 8 hours. Patient does admit to increased anxiety due to the auditory hallucinations, but states "no depression." Regarding his "neurological problems" the patient states he is having difficulty walking and writing, and that his legs "jump all around." He describes this feeling as his legs "being spongy." Patient continues to feel as though the ziprasidone has been an effective medication; however, he states that the Thorazine is "a waste of time." Patient states that he has not noticed any improvement in his auditory hallucinations or anxiety after starting this medication. Patient is able to contract for safety in the inpatient hospital setting; however, is not feeling safe for discharge home. He denies other psychiatric symptoms besides those outlined above. Past Psychiatric History Current Psychiatric Diagnosis: Schizophrenia Outpatient Services: Psychiatrist - Dr. Alves manager cosmetics - [facility] Previous Psych Admissions: [facility]: 09/2016, 02/2019 - 05/2019; and again in 06/2019 [facility]: 05/2019 Do You Have Access To A Gun?: No History of Previous Suicide Attempt: Yes Describe Attempts in the Past: one prior overdose Past Medication Trials: Per previous documentation: 1. Zyprexa 2. Risperdal 3. Abilify 4. Haldol - dystonia 5. Amitriptyline 6. Imipramine 7. Ambien 8. Thorazine - NMS 9. Temazepam 10.Cymbalta - GI symptoms 11.Navane 12.Loxitane 13.Invega 14.Latuda 15.Ativan 16.Xanax 17.Seroquel 18.Geodon Past Head Trauma/Neuro History History of Concussion/Seizure: No Allergies Allergy/AdvReac Type Severity Reaction Status Date / Time No Known Allergies Allergy Verified 09/10/19 15:46 Home Medications Home Medications Medication Instructions Recorded Confirmed Type clonidine HCl 0.1 mg PO HS #30 tab 05/25/19 09/11/19 Rx ziprasidone HCl 80 mg PO BIDM 07/07/19 09/11/19 History amoxicillin 500 mg PO BID 09/10/19 09/11/19 History chlorpromazine 100 mg PO TID 09/10/19 09/11/19 History magnesium oxide 400 mg PO DAILY 09/10/19 09/11/19 History melatonin 10 mg PO HS 09/10/19 09/11/19 History Family History Family History of: Alcoholism/Drug Abuse (father) Family Mental Health History Comment: Per 09/2016 admission: cousin with schizophrenia who committed suicide. Mother with schizophrenia. Alcohol History Hx of Alcohol Use Over the Past 12 Months: No AUDIT Total Score: 0 Smoking Use Have You Smoked or Used Tobacco Products in the Last 30 Days: No tobacco type: cigarettes Smoking Status: Former smoker Substance History Hx of Prescription Med Misuse Over the Past 12 Months: No Hx of Over the Counter Med Misuse Over the Past 12 Months: No Hx of Inhalent Misuse Over the Past 12 Months: No Hx of Organic Substance Use Over the Past 12 Months: No Hx of Illegal Substances/Street Drug Use Over Past 12 Months: No Problems as a Result of Past Substance Use: None Identified Personal History Living Arrangements: [facility] Born In: [place], but moved frequently Highest Grade Completed: College ([employer]) 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) Marital Status: Single Number Of Children: None Beliefs That Will Affect Care: None Current Legal Problems: No Hx Legal Problems: No Hx Traumatic Life Events: No Patient History Medical History Benzodiazepine abuse (Chronic) Closed head injury Fall Hypertension Hypokalemia Leukocytosis (08/14/13) Rhabdomyolysis (07/21/13) Scalp laceration Schizophrenia (Chronic) Tobacco use disorder (Chronic) Surgical History No pertinent past surgical history Family History Other No pertinent family history Social History Preferred Language: Dutch Communication Ability: Effective 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 Physical Exam Psychiatric: Orientation: alert, oriented x 3 and + guarded (superficially cooperative) Apperance: appropriately dressed, appropriately groomed and appeared stated age male of healthy-appearing weight, seated in no acute distress. Pt is casually dressed in a sweater and jeans, wearing sandals over socks. Hair is neatly trimmed. Level of grooming and hygiene appear adequate. Eye Contact: good eye contact Motor Behavior: steady gait and station and no abnormal motor movements Speech: normal rate/rhythm/volume of speech Affect: + flat affect Mood: + anxious mood (Rates anxiety level a 6/10); no depressed mood ("I'm not depressed", rating mood an 8/10) Thought Process: goal directed thought process and + concrete thought process Thought Content: + preoccupation (with head buzzing and auditory hallucinations) and + hopelessness Suicidal Thoughts: denies suicidal plan; + reports suicidal thoughts (reporting daily SI) and + reports suicidal intent ("I couldn't think of anything else I could do") Homicidal Thoughts: denies homicidal thoughts Hallucinations: + auditory hallucinations (head "buzzing"; reporting AH commanding him to commit suicide ) Cognition: attention grossly intact and language grossly intact Insight: + limited insight Judgement: + limited judgement Vital Signs (Past 24 Hours): Last Vital Signs Temp 36.6 C 09/12/19 06:21 Pulse 62 09/12/19 06:21 Resp 16 09/12/19 06:21 BP 132/77 09/12/19 06:21 Pulse Ox 98 09/11/19 18:16 Exam Statement: A physical exam was performed in the ER prior to admission to the unit by Dr. Feliciano Stover. I accept that physical as correct/medical clearance for the inpatient physical exam. Results & Data Laboratory Results Laboratory Results - last 24 hr 09/11/19 09/11/19 09/11/19 11:30 11:30 12:30 WBC 5.36 RBC 4.58 L Hgb 14.5 Hct 42.8 MCV 93.4 MCH 31.7 MCHC 33.9 RDW Std Deviation 44.0 RDW Coeff of Namita 13.0 Plt Count 241 MPV 8.5 Immature Gran % (Auto) 0.2 Neut % (Auto) 64.3 Lymph % (Auto) 18.5 Maries % (Auto) 10.8 Eos % (Auto) 5.8 Baso % (Auto) 0.4 Immature Gran # (Auto) 0.01 Neut # (Auto) 3.45 Lymph # (Auto) 0.99 L Maries # (Auto) 0.58 Eos # (Auto) 0.31 Baso # (Auto) 0.02 Sodium Potassium Chloride Carbon Dioxide Anion Gap BUN Creatinine Est Cr Clr Drug Dosing Est GFR ( Amer) Est GFR (Non-Af Amer) BUN/Creatinine Ratio Glucose Calcium Total Bilirubin AST ALT Alkaline Phosphatase Total Protein Albumin Globulin Albumin/Globulin Ratio TSH Urine Color Yellow Urine Appearance Clear Urine pH 7.0 Ur Specific Ariton 1.006 Urine Protein Negative Urine Glucose (UA) Negative Urine Ketones Negative Urine Blood Trace H Urine Nitrite Negative Urine Bilirubin Negative Urine Urobilinogen Negative Ur Leukocyte Esterase Negative Urine RBC 0-4 Urine WBC 0-5 Ur Epithelial Cells 0-5 Urine Bacteria Negative Nasal Screen MRSA (PCR) Salicylates Urine Opiates Screen Neg Ur Methadone, Qual Neg Acetaminophen Urine Barbiturates Neg Ur Phencyclidine (PCP) Neg U Amphetamin/Meth Scrn Neg MDMA (Ecstasy) Screen Neg U Benzodiazepines Scrn Neg Ur Cocaine Metabolite Neg U Marijuana (THC) Screen Neg Ethyl Alcohol mg/dL 09/11/19 09/11/19 09/11/19 12:30 12:30 12:30 WBC RBC Hgb Hct MCV MCH MCHC RDW Std Deviation RDW Coeff of Namita Plt Count MPV Immature Gran % (Auto) Neut % (Auto) Lymph % (Auto) Maries % (Auto) Eos % (Auto) Baso % (Auto) Immature Gran # (Auto) Neut # (Auto) Lymph # (Auto) Maries # (Auto) Eos # (Auto) Baso # (Auto) Sodium 139 Potassium 3.7 Chloride 107 Carbon Dioxide 29 Anion Gap 3.0 BUN 18 Creatinine 0.91 Est Cr Clr Drug Dosing 67.6 Est GFR ( Amer) 96.6 Est GFR (Non-Af Amer) 83.3 BUN/Creatinine Ratio 19.7 Glucose 142 H Calcium 9.0 Total Bilirubin 0.4 AST 11 L ALT 21 Alkaline Phosphatase 90 Total Protein 7.7 Albumin 3.7 Globulin 4.0 Albumin/Globulin Ratio 0.9 TSH 1.420 Urine Color Urine Appearance Urine pH Ur Specific Ariton Urine Protein Urine Glucose (UA) Urine Ketones Urine Blood Urine Nitrite Urine Bilirubin Urine Urobilinogen Ur Leukocyte Esterase Urine RBC Urine WBC Ur Epithelial Cells Urine Bacteria Nasal Screen MRSA (PCR) Salicylates < 1.7 L Urine Opiates Screen Ur Methadone, Qual Acetaminophen < 2 L Urine Barbiturates Ur Phencyclidine (PCP) U Amphetamin/Meth Scrn MDMA (Ecstasy) Screen U Benzodiazepines Scrn Ur Cocaine Metabolite U Marijuana (THC) Screen Ethyl Alcohol mg/dL < 3.0 09/11/19 16:30 WBC RBC Hgb Hct MCV MCH MCHC RDW Std Deviation RDW Coeff of Namita Plt Count MPV Immature Gran % (Auto) Neut % (Auto) Lymph % (Auto) Maries % (Auto) Eos % (Auto) Baso % (Auto) Immature Gran # (Auto) Neut # (Auto) Lymph # (Auto) Maries # (Auto) Eos # (Auto) Baso # (Auto) Sodium Potassium Chloride Carbon Dioxide Anion Gap BUN Creatinine Est Cr Clr Drug Dosing Est GFR ( Amer) Est GFR (Non-Af Amer) BUN/Creatinine Ratio Glucose Calcium Total Bilirubin AST ALT Alkaline Phosphatase Total Protein Albumin Globulin Albumin/Globulin Ratio TSH Urine Color Urine Appearance Urine pH Ur Specific Ariton Urine Protein Urine Glucose (UA) Urine Ketones Urine Blood Urine Nitrite Urine Bilirubin Urine Urobilinogen Ur Leukocyte Esterase Urine RBC Urine WBC Ur Epithelial Cells Urine Bacteria Nasal Screen MRSA (PCR) Negative Salicylates Urine Opiates Screen Ur Methadone, Qual Acetaminophen Urine Barbiturates Ur Phencyclidine (PCP) U Amphetamin/Meth Scrn MDMA (Ecstasy) Screen U Benzodiazepines Scrn Ur Cocaine Metabolite U Marijuana (THC) Screen Ethyl Alcohol mg/dL Current Inpatient Medications Current Inpatient Medications: Current Inpatient Medications Acetaminophen (Tylenol) 650 mg PO Q4H PRN PRN Reason: Headache or Minor Fever Stop: 10/11/19 18:23 Al Hydrox/Mg Hydrox/Simethicone (Maalox) 30 ml PO Q4H PRN PRN Reason: GI Upset Stop: 10/11/19 18:23 Amoxicillin (Amoxil) 500 mg PO BID MAG Stop: 09/14/19 20:59 Last Admin: 09/11/19 21:04 Dose: 500 mg Documented by: Bismuth Subsalicylate (Kaopectate) 15 ml PO PRN PRN PRN Reason: Loose Stool Stop: 10/11/19 18:23 Chlorpromazine HCl (Thorazine) 100 mg PO TID MAG Stop: 10/11/19 20:59 Last Admin: 09/11/19 21:04 Dose: 100 mg Documented by: Clonidine HCl (Catapres) 0.1 mg PO HS MAG Stop: 10/11/19 21:59 Last Admin: 09/11/19 21:04 Dose: 0.1 mg Documented by: Hydroxyzine HCl (Vistaril) 50 mg PO HSZ PRN PRN Reason: Insomnia Stop: 10/11/19 18:23 Hydroxyzine HCl (Vistaril) 25 mg PO Q4H PRN PRN Reason: Anxiety Stop: 10/11/19 18:23 Magnesium Hydroxide (Milk Of Magnesia) 30 ml PO DAILY PRN PRN Reason: Constipation Stop: 10/11/19 18:23 Magnesium Oxide (Mag-Ox) 400 mg PO QAM MAG Stop: 10/12/19 08:59 Sodium Chloride ([place] Nasal) 1 - 2 sprays NA PRN PRN PRN Reason: Nasal Dryness/Congestion Stop: 10/11/19 18:23 Last Admin: 09/12/19 00:41 Dose: 2 sprays Documented by: Ziprasidone (Geodon) 80 mg PO BIDM MAG Stop: 10/12/19 08:59
[2019-09-12] MEDS: ZIPRASIDONE HCL 80 MG CAP PO SCH ×2 (09:18→17:41)
[2019-09-12] MEDS: CHLORPROMAZINE HCL 100 MG TABLET PO SCH ×2 (09:18→13:34)
[2019-09-12] MEDS: AMOXICILLIN 500 MG CAP PO SCH ×2 (09:18→21:13)
[2019-09-12] MEDS: MAGNESIUM OXIDE 400 MG TAB PO SCH (09:19)
[2019-09-12] MEDS: cloNIDine HCL 0.1 MG TAB PO SCH (21:13)
[2019-09-12] MEDS: FLUTICASONE PROPIONATE NA SPR 16 GM BTL NAE SCH (21:13)
[2019-09-12] MEDS: MIRTAZAPINE TAB 15 MG TAB PO SCH (21:14)
[2019-09-13] MEDS: ZIPRASIDONE HCL 80 MG CAP PO SCH ×2 (08:37→17:45)
[2019-09-13] MEDS: AMOXICILLIN 500 MG CAP PO SCH ×2 (08:37→21:10)
[2019-09-13] MEDS: MAGNESIUM OXIDE 400 MG TAB PO SCH (08:38)
--- NOTE | 2019-09-13 08:58 | Psychiatric Progress Note ---
Date of Service September 13, 2019 Impression / Recommendations Impression 74-year-old male admitted voluntarily for inpatient psychiatric treatment with reports of suicidal ideation related to auditory hallucinations and "neurological problems." Pt verbalized having "no choice but to kill myself" due to frustration with dealing with these symptoms. He is unable to contract for safety outside of the inpatient setting, making psychiatric hospitalization medically necessary at this time. (1) Suicidal ideations: 09/12 - Admitted to a locked inpatient behavioral health unit, on q15 minute safety checks - Encourage medication initiation/adjustments as indicated - Encourage participation in group and recreational therapies - Gather collateral information from outpatient providers - Suggest family meeting to involve outpatient supports in safety planning - Arrange appropriate aftercare 09/13 - Pt admits to ongoing SI, mildly improved as voices are now "a little quieter" (2) Schizophrenia: 09/12 - Continue home dose of ziprasidone 80mg BID - Discontinue chlorpromazine, as patient feels it has been ineffective - Will initiate mirtazapine 7.5mg to assist with sleep, may also provide off- label benefit for anxiety symptoms. Risks, benefits, and potential side effects were reviewed. Pt verbalized understanding and was agreeable with beginning the medication - Consider augmenting with another antipsychotic medication to further target auditory hallucinations - Fasting glucose and lipid panel obtained in 02/2019 - all values WNL - Will continue to monitor for reported "neurological problems" at this time; determine if inpatient neurology consultation is indicated based on observations - Coordinate care with patient's outpatient psychiatric supports 09/13 - Continue home dose of ziprasidone 80mg BID - Continue mirtazapine 7.5mg qHS - patient reporting improved sleep last evening - Pt admits voices are "a little quieter" today - Coordinate care with outpatient supports and psychiatric providers (3) Somatic complaints, multiple: 09/13 - Pt presented with complaints of "neurological problems" - He reports perceived changes in gait stating he is having to take "smaller steps" - Gait and ambulatory function assessed today - no gross abnormalities noted - Recommend AIMS assessment along with MoCA to assess for other etiology of reported concerns - No indication for neurology consultation at this time, but will continue to monitor (4) Substance abuse: 09/12 - History of substance abuse, specifically benzodiazepines - Continue to refrain from prescribing medication with abuse potential - Continue to coordinate care with outpatient providers (5) Hypertension: 09/12 - Continue clonidine 0.1mg qHS - BP within normal limits Risk Factors Assessment Do You Have Access To A Gun?: No Protective Factors Assessment Employed: No Interval History Identifying Information SCOTT ROBERTO is a 74-year-old M who currently lives in [place] at the [facility]. Pt has a history of schizophrenia, and was admitted on 09/11/19 17:32 on a 201 voluntary commitment for "neurological problems" and auditory hallucinations commanding patient to commit suicide. Chief Complaint "I'm still having neurological problems." Review of Systems Notes Constitutional: reports improved sleep last evening Cardiovascular: denied Respiratory: denied Gastrointestinal: denied Neurological: reports perceived difficulty walking, believes he is taking smaller steps Psychiatric: denies symptoms other than stated above Total of at least 10 systems reviewed, pertinent positives as above and in HPI. Sleep Information Total Hours of Sleep: 8 Meal Information Percent Meal Consumed - Breakfast: 100 Percent Meal Consumed - Lunch: 100 Percent Meal Consumed - Dinner: 100 Nutrition Comment: per meal record Subjective Subjective Patient was seen & assessed and interval progress reviewed with nursing and social work. Staff report the patient has continued to verbalize SI and auditory hallucinations. Pt states he is still having "neurological problems", stating he feels he is "wanting to take smaller steps and I feel insecure." Pt states that these concerns have been increasing over the past several weeks. He denies perceived memory concerns or confusion. Pt admits to ongoing SI stating "life is not worth living", but denies current intent to harm himself or end his life. He continues to experience auditory hallucinations telling him to harm himself, but admits they have gotten "a little quieter." He reports improvement in sleep last evening, and feels this is contributing to his improvement in symptoms today. He denies other needs or concerns presently. Physical Exam Psychiatric Orientation: alert, oriented x 3 and cooperative Apperance: appropriately dressed and + disheveled (hair appearing unkempt today) Eye Contact: good eye contact Motor Behavior: steady gait and station and no abnormal motor movements Gait assessed today, as patient was asked to walk the hallway - no gross abnormalities of balance or coordination were observed. No shuffling gait, no limp. Speech: normal rate/rhythm/volume of speech (brief responses to questions, non- spontaneous) Affect: + flat affect Mood: no depressed mood ("a little better") Thought Process: goal directed thought process and + concrete thought process Thought Content: + preoccupation (with "neurological problems") Suicidal Thoughts: denies suicidal intent; + reports suicidal thoughts Denies active intent to end life, but continues to state he feels life is not worth living Homicidal Thoughts: denies homicidal thoughts Hallucinations: + auditory hallucinations (admits voices are "a little quieter") Cognition: attention grossly intact and language grossly intact Insight: + impaired insight Judgement: + fair judgement Vital Signs (Past 24 Hours) Last Vital Signs Temp 36.4 C L 09/13/19 06:00 Pulse 88 09/13/19 06:32 Resp 16 09/13/19 06:00 BP 107/68 09/13/19 06:32 Pulse Ox 98 09/11/19 18:16 Results & Data Current Inpatient Medications Current Inpatient Medications: Current Inpatient Medications Acetaminophen (Tylenol) 650 mg PO Q4H PRN PRN Reason: Headache or Minor Fever Stop: 10/11/19 18:23 Al Hydrox/Mg Hydrox/Simethicone (Maalox) 30 ml PO Q4H PRN PRN Reason: GI Upset Stop: 10/11/19 18:23 Amoxicillin (Amoxil) 500 mg PO BID [facility] Stop: 09/14/19 20:59 Last Admin: 09/13/19 08:37 Dose: 500 mg Documented by: Bismuth Subsalicylate (Kaopectate) 15 ml PO PRN PRN PRN Reason: Loose Stool Stop: 10/11/19 18:23 Clonidine HCl (Catapres) 0.1 mg PO [facility] Stop: 10/11/19 21:59 Last Admin: 09/12/19 21:13 Dose: 0.1 mg Documented by: Fluticasone Propionate (Flonase) 2 sprays [facility] Stop: 10/12/19 21:59 Last Admin: 09/12/19 21:13 Dose: 2 sprays Documented by: Hydroxyzine HCl (Vistaril) 50 mg PO HSZ PRN PRN Reason: Insomnia Stop: 10/11/19 18:23 Hydroxyzine HCl (Vistaril) 25 mg PO Q4H PRN PRN Reason: Anxiety Stop: 10/11/19 18:23 Magnesium Hydroxide (Milk Of Magnesia) 30 ml PO DAILY PRN PRN Reason: Constipation Stop: 10/11/19 18:23 Magnesium Oxide (Mag-Ox) 400 mg PO QAM [facility] Stop: 10/12/19 08:59 Last Admin: 09/13/19 08:38 Dose: 400 mg Documented by: Mirtazapine (Remeron) 7.5 mg PO HS [facility] Stop: 10/12/19 21:59 Last Admin: 09/12/19 21:14 Dose: 7.5 mg Documented by: Sodium Chloride ([place] Nasal) 1 - 2 sprays NA PRN PRN PRN Reason: Nasal Dryness/Congestion Stop: 10/11/19 18:23 Last Admin: 09/12/19 00:41 Dose: 2 sprays Documented by: Ziprasidone (Geodon) 80 mg PO BIDM [facility] Stop: 10/12/19 08:59 Last Admin: 09/13/19 08:37 Dose: 80 mg Documented by: Mental Health & Subst Abuse Tx Therapist Name of Therapist: TITO Actuarial Manager Name of Actuarial Manager: Rae with [facility]charge Appointments Primary Care Physician Name Of Family Doctor: Dr. Jeff Lopez (1) Schizophrenia Schizophrenia type: paranoid schizophrenia Qualified Code(s): F20.0 - Paranoid schizophrenia (2) Hypertension Hypertension type: essential hypertension Qualified Code(s): I10 - Essential (primary) hypertension
[2019-09-13] MEDS: cloNIDine HCL 0.1 MG TAB PO SCH (21:11)
[2019-09-13] MEDS: FLUTICASONE PROPIONATE NA SPR 16 GM BTL NAE SCH (21:11)
[2019-09-13] MEDS: MIRTAZAPINE TAB 15 MG TAB PO SCH (21:11)
[2019-09-14] MEDS: ZIPRASIDONE HCL 80 MG CAP PO SCH ×2 (08:38→17:33)
[2019-09-14] MEDS: AMOXICILLIN 500 MG CAP PO SCH (08:38)
[2019-09-14] MEDS: MAGNESIUM OXIDE 400 MG TAB PO SCH (08:38)
--- NOTE | 2019-09-14 10:28 | Psychiatric Progress Note ---
Date of Service September 14, 2019 Impression / Recommendations Impression 74-year-old male admitted voluntarily for inpatient psychiatric treatment with reports of suicidal ideation related to auditory hallucinations and "neurological problems." Pt verbalized having "no choice but to kill myself" due to frustration with dealing with these symptoms. He is unable to contract for safety outside of the inpatient setting, making psychiatric hospitalization medically necessary at this time. (1) Suicidal ideations: 09/12 - Admitted to a locked inpatient behavioral health unit, on q15 minute safety checks - Encourage medication initiation/adjustments as indicated - Encourage participation in group and recreational therapies - Gather collateral information from outpatient providers - Suggest family meeting to involve outpatient supports in safety planning - Arrange appropriate aftercare 09/13 - Pt admits to ongoing SI, mildly improved as voices are now "a little quieter" 09/14 - Pt denies active SI, but does admit to ongoing auditory hallucinations telling him to end his life - Reporting some improvement with utilization of distraction techniques and improved sleep - Remains unable at this time to contract for safety outside of hospital setting (2) Schizophrenia: 09/12 - Continue home dose of ziprasidone 80mg BID - Discontinue chlorpromazine, as patient feels it has been ineffective - Will initiate mirtazapine 7.5mg to assist with sleep, may also provide off- label benefit for anxiety symptoms. Risks, benefits, and potential side effects were reviewed. Pt verbalized understanding and was agreeable with beginning the medication - Consider augmenting with another antipsychotic medication to further target auditory hallucinations - Fasting glucose and lipid panel obtained in 02/2019 - all values WNL - Will continue to monitor for reported "neurological problems" at this time; determine if inpatient neurology consultation is indicated based on observations - Coordinate care with patient's outpatient psychiatric supports 09/13 - Continue home dose of ziprasidone 80mg BID - Continue mirtazapine 7.5mg qHS - patient reporting improved sleep last evening - Pt admits voices are "a little quieter" today - Coordinate care with outpatient supports and psychiatric providers 09/14 - Continue current medication regimen, as patient is reporting improvement in the presence of the voices and quality of sleep - Coordinating with outpatient providers today - CRR was called, denied any concerns related to patient being transported back on discharge (3) Somatic complaints, multiple: 09/13 - Pt presented with complaints of "neurological problems" - He reports perceived changes in gait stating he is having to take "smaller steps" - Gait and ambulatory function assessed today - no gross abnormalities noted - Recommend AIMS assessment along with MoCA to assess for other etiology of reported concerns - No indication for neurology consultation at this time, but will continue to monitor 09/14 - Pt reporting continued dizziness and "head buzzing" - Apparently patient had an outpatient neurology appointment already scheduled for today - will reschedule to follow-up post-discharge for the above concerns - More thorough discussion today - patient is not verbalizing complaints consistent with EPS or expected medication side effects - AIMS - 0 - Will attempt MoCA (4) Substance abuse: 09/12 - History of substance abuse, specifically benzodiazepines - Continue to refrain from prescribing medication with abuse potential - Continue to coordinate care with outpatient providers (5) Hypertension: 09/12 - Continue clonidine 0.1mg qHS - BP within normal limits Risk Factors Assessment Do You Have Access To A Gun?: No Protective Factors Assessment Employed: No Interval History Identifying Information SCOTT ROBERTO is a 74-year-old M who currently lives in [place] at the [facility]. Pt has a history of schizophrenia, and was admitted on 09/11/19 17:32 on a 201 voluntary commitment for "neurological problems" and auditory hallucinations commanding patient to commit suicide. Chief Complaint "The anxiety is still there." Review of Systems Notes Constitutional: reports ongoing dizziness Cardiovascular: denied Respiratory: denied Gastrointestinal: denied Neurological: denied Psychiatric: denies symptoms other than stated above Total of at least 10 systems reviewed, pertinent positives as above and in HPI. Sleep Information Total Hours of Sleep: 8.75 Meal Information Percent Meal Consumed - Breakfast: 100 Percent Meal Consumed - Lunch: 100 Percent Meal Consumed - Dinner: 100 Nutrition Comment: per meal record Subjective Subjective Patient was seen & assessed and interval progress reviewed with treatment team. Staff reports the patient was withdrawn more during the day yesterday, spending a lot of time in bed. This morning he is up, showered, and actively present on the unit. Patient did rate his mood an 8/10 and "hopeful" last evening. Patient was seen today to assess progress since admission. He does admit "the anxiety is still there." Patient rates his anxiety on admission a "9 or 10" (10 equals worst), he is now rating his anxiety "an 8." When asked about the volume of his auditory hallucinations, the patient states "they are quieter, they are talking right now." When asked what the voices were saying to him, the patient states "nothing." He admits that the voices, at times, continue to tell him to end his life. Patient states it is becoming mildly easier to distract himself from the voices. Patient states that he hears 3 distinct voices. Patient denies concerns related to depression. He states sleep continues to be improved, which he is grateful for. Patient does admit to persistent dizziness, feeling as though he needs to walk to reduce this. Patient denies feeling restless or as though he is being driven by a motor. He denies any concerns seemingly more related to possible medication side effects. Patient is unsure if he has followed up with a neurologist in the past, but is requesting this on discharge. Physical Exam Psychiatric Orientation: alert and cooperative (superficially) Apperance: appropriately dressed, appropriately groomed (recently showered) and appeared stated age Eye Contact: good eye contact Motor Behavior: steady gait and station and no abnormal motor movements; no psychomotor agitation, n EPS and n akathisia Speech: normal rate/rhythm/volume of speech (brief responses to questions) Affect: + flat affect Mood: + anxious mood ("the anxiety is still there"); no depressed mood Thought Process: goal directed thought process, clear/coherent thought process and + concrete thought process Thought Content: + preoccupation (with dizziness, various neurological complaints) and + hopelessness (intermittently) Suicidal Thoughts: denies suicidal thoughts No active SI, but admits ongoing AH commanding him to end his life and concern he may act on this Homicidal Thoughts: denies homicidal thoughts Hallucinations: + auditory hallucinations (admits voices are "quieter", ongoing command to end life) Cognition: attention grossly intact and language grossly intact Insight: + impaired insight Judgement: + impaired judgement Vital Signs (Past 24 Hours) Last Vital Signs Temp 36.6 C 09/14/19 06:48 Pulse 90 09/14/19 06:48 Resp 16 09/14/19 06:48 BP 119/75 09/14/19 06:48 Pulse Ox 98 09/11/19 18:16 Results & Data Current Inpatient Medications Current Inpatient Medications: Current Inpatient Medications Acetaminophen (Tylenol) 650 mg PO Q4H PRN PRN Reason: Headache or Minor Fever Stop: 10/11/19 18:23 Al Hydrox/Mg Hydrox/Simethicone (Maalox) 30 ml PO Q4H PRN PRN Reason: GI Upset Stop: 10/11/19 18:23 Amoxicillin (Amoxil) 500 mg PO BID [facility] Stop: 09/14/19 20:59 Last Admin: 09/14/19 08:38 Dose: 500 mg Documented by: Bismuth Subsalicylate (Kaopectate) 15 ml PO PRN PRN PRN Reason: Loose Stool Stop: 10/11/19 18:23 Clonidine HCl (Catapres) 0.1 mg PO [facility] Stop: 10/11/19 21:59 Last Admin: 09/13/19 21:11 Dose: 0.1 mg Documented by: Fluticasone Propionate (Flonase) 2 sprays SURJIT [facility] Stop: 10/12/19 21:59 Last Admin: 09/13/19 21:11 Dose: 2 sprays Documented by: Hydroxyzine HCl (Vistaril) 50 mg PO HSZ PRN PRN Reason: Insomnia Stop: 10/11/19 18:23 Hydroxyzine HCl (Vistaril) 25 mg PO Q4H PRN PRN Reason: Anxiety Stop: 10/11/19 18:23 Magnesium Hydroxide (Milk Of Magnesia) 30 ml PO DAILY PRN PRN Reason: Constipation Stop: 10/11/19 18:23 [facility] ([facility]) [facility] Stop: 10/12/19 08:59 Last Admin: 09/14/19 08:38 Dose: 400 mg Documented by: Mirtazapine (Remeron) 7.5 mg PO [facility] Stop: 10/12/19 21:59 Last Admin: 09/13/19 21:11 Dose: 7.5 mg Documented by: Sodium Chloride ([place] Nasal) 1 - 2 sprays NA PRN PRN PRN Reason: Nasal Dryness/Congestion Stop: 10/11/19 18:23 Last Admin: 09/12/19 00:41 Dose: 2 sprays Documented by: Ziprasidone (Geodon) [facility] Stop: 10/12/19 08:59 Last Admin: 09/14/19 08:38 Dose: 80 mg Documented by: Mental Health & Subst Abuse Tx Therapist Name of Therapist: NA Chief Executive Or Managing Director Name of Chief Executive Or Managing Director: Rae with [facility] Post Discharge Appointments Primary Care Physician Name Of Family Doctor: Dr. Jeff Lopez (1) Schizophrenia Schizophrenia type: paranoid schizophrenia Qualified Code(s): F20.0 - Paranoid schizophrenia (2) Hypertension Hypertension type: essential hypertension Qualified Code(s): I10 - Essential (primary) hypertension
[2019-09-14] MEDS: MIRTAZAPINE TAB 15 MG TAB PO SCH (21:03)
[2019-09-14] MEDS: cloNIDine HCL 0.1 MG TAB PO SCH (21:03)
[2019-09-14] MEDS: FLUTICASONE PROPIONATE NA SPR 16 GM BTL NAE SCH (21:03)
[2019-09-15] MEDS: MAGNESIUM OXIDE 400 MG TAB PO SCH (08:42)
[2019-09-15] MEDS: ZIPRASIDONE HCL 80 MG CAP PO SCH ×2 (08:42→17:29)
--- NOTE | 2019-09-15 13:16 | Psychiatric Progress Note ---
Date of Service September 15, 2019 Impression / Recommendations Impression 74-year-old male admitted voluntarily for inpatient psychiatric treatment with reports of suicidal ideation related to auditory hallucinations and "neurological problems." Pt verbalized having "no choice but to kill myself" due to frustration with dealing with these symptoms. He is unable to contract for safety outside of the inpatient setting, making psychiatric hospitalization medically necessary at this time. (1) Suicidal ideations: 09/12 - Admitted to a locked inpatient behavioral health unit, on q15 minute safety checks - Encourage medication initiation/adjustments as indicated - Encourage participation in group and recreational therapies - Gather collateral information from outpatient providers - Suggest family meeting to involve outpatient supports in safety planning - Arrange appropriate aftercare 09/13 - Pt admits to ongoing SI, mildly improved as voices are now "a little quieter" 09/14 - Pt denies active SI, but does admit to ongoing auditory hallucinations telling him to end his life - Reporting some improvement with utilization of distraction techniques and improved sleep - Remains unable at this time to contract for safety outside of hospital setting 09/15 - Denies active SI, reports worsening auditory hallucinations (2) Schizophrenia: 09/12 - Continue home dose of ziprasidone 80mg BID - Discontinue chlorpromazine, as patient feels it has been ineffective - Will initiate mirtazapine 7.5mg to assist with sleep, may also provide off- label benefit for anxiety symptoms. Risks, benefits, and potential side effects were reviewed. Pt verbalized understanding and was agreeable with beginning the medication - Consider augmenting with another antipsychotic medication to further target auditory hallucinations - Fasting glucose and lipid panel obtained in 02/2019 - all values WNL - Will continue to monitor for reported "neurological problems" at this time; determine if inpatient neurology consultation is indicated based on observations - Coordinate care with patient's outpatient psychiatric supports 09/13 - Continue home dose of ziprasidone 80mg BID - Continue mirtazapine 7.5mg qHS - patient reporting improved sleep last evening - Pt admits voices are "a little quieter" today - Coordinate care with outpatient supports and psychiatric providers 09/14 - Continue current medication regimen, as patient is reporting improvement in the presence of the voices and quality of sleep - Coordinating with outpatient providers today - CRR was called, denied any concerns related to patient being transported back on discharge 09/15 - Continue current medication regimen, symptoms worsening today (3) Somatic complaints, multiple: 09/13 - Pt presented with complaints of "neurological problems" - He reports perceived changes in gait stating he is having to take "smaller steps" - Gait and ambulatory function assessed today - no gross abnormalities noted - Recommend AIMS assessment along with MoCA to assess for other etiology of reported concerns - No indication for neurology consultation at this time, but will continue to monitor 09/14 - Pt reporting continued dizziness and "head buzzing" - Apparently patient had an outpatient neurology appointment already scheduled for today - will reschedule to follow-up post-discharge for the above concerns - More thorough discussion today - patient is not verbalizing complaints consistent with EPS or expected medication side effects - AIMS - 0 - Will attempt MoCA 09/15 - Reports worsening "buzzing" in his head and complaints of balance concerns - MoCA completed today, patient scoring a 15/30, demonstrating global cognitive impairment - missing 4 points for visuospatial/executive functioning, 1 point for naming, 3 points for attention exhibiting difficulty with serial 7's, 3 points for language, 1 point for abstraction, and 1 point for orientation. - Reschedule outpatient neurology appointment (4) Substance abuse: 09/12 - History of substance abuse, specifically benzodiazepines - Continue to refrain from prescribing medication with abuse potential - Continue to coordinate care with outpatient providers (5) Hypertension: 09/12 - Continue clonidine 0.1mg qHS - BP within normal limits Risk Factors Assessment Do You Have Access To A Gun?: No Protective Factors Assessment Employed: No Interval History Identifying Information SCOTT ROBERTO is a 74-year-old M who currently lives in [place] at the [facility]. Pt has a history of schizophrenia, and was admitted on 09/11/19 17:32 on a 201 voluntary commitment for "neurological problems" and auditory hallucinations commanding patient to commit suicide. Chief Complaint "Not so good today. I have a noise in my head." Review of Systems Notes Constitutional: reports dizziness, "head buzzing", and poor sleep Cardiovascular: denied Respiratory: denied Gastrointestinal: denied Neurological: denied Psychiatric: denies symptoms other than stated above Total of at least 10 systems reviewed, pertinent positives as above and in HPI. Sleep Information Total Hours of Sleep: 7 Meal Information Percent Meal Consumed - Breakfast: 100 Percent Meal Consumed - Lunch: 100 Percent Meal Consumed - Dinner: 100 Nutrition Comment: per meal record Subjective Subjective Patient was seen & assessed and interval progress reviewed with nursing and social work. Staff report the patient has been attending group programming, but otherwise spends time in his room. Pt was seen today to assess progress since admission. Pt states he is "not so good" today, admitting to exacerbation of dizziness and head "buzzing" today. Pt also states that he had poor sleep last evening. He denies active suicidal ideation, though he does admit the belief that life is not worth living. He reports continued auditory hallucinations, at times telling him to harm himself. Pt was agreeable to participating with the MoCA assessment, scoring a 15/30 with global cognitive impairments. At the completion of the assessment, the patient states "You can see I have some brain damage." He abruptly ended the interview by stating "I have to use the bathroom." Physical Exam Psychiatric Orientation: alert and cooperative Apperance: appropriately dressed, appropriately groomed and appeared stated age Eye Contact: good eye contact Motor Behavior: steady gait and station Speech: normal rate/rhythm/volume of speech Affect: + flat affect Mood: + anxious mood; no depressed mood Thought Process: goal directed thought process Thought Content: + hopelessness Suicidal Thoughts: denies suicidal thoughts but admits to auditory hallucinations of voices telling him to end his life Homicidal Thoughts: denies homicidal thoughts Hallucinations: + auditory hallucinations (ongoing voices); no visual hallucinations Cognition: attention grossly intact and language grossly intact Insight: + impaired insight Judgement: + impaired judgement Vital Signs (Past 24 Hours) Last Vital Signs Temp 36.9 C 09/15/19 06:40 Pulse 88 09/15/19 06:40 Resp 18 09/15/19 06:40 BP 153/88 H 09/15/19 06:40 Pulse Ox 98 09/11/19 18:16 Results & Data Current Inpatient Medications Current Inpatient Medications: Current Inpatient Medications Acetaminophen (Tylenol) 650 mg PO Q4H PRN PRN Reason: Headache or Minor Fever Stop: 10/11/19 18:23 Al Hydrox/Mg Hydrox/Simethicone (Maalox) 30 ml PO Q4H PRN PRN Reason: GI Upset Stop: 10/11/19 18:23 Bismuth Subsalicylate (Kaopectate) 15 ml PO PRN PRN PRN Reason: Loose Stool Stop: 10/11/19 18:23 Clonidine HCl (Catapres) 0.1 mg PO HS MAG Stop: 10/11/19 21:59 Last Admin: 09/14/19 21:03 Dose: 0.1 mg Documented by: Fluticasone Propionate (Flonase) 2 sprays SURJIT HS MAG Stop: 10/12/19 21:59 Last Admin: 09/14/19 21:03 Dose: 2 sprays Documented by: Hydroxyzine HCl (Vistaril) 50 mg PO HSZ PRN PRN Reason: Insomnia Stop: 10/11/19 18:23 Hydroxyzine HCl (Vistaril) 25 mg PO Q4H PRN PRN Reason: Anxiety Stop: 10/11/19 18:23 Magnesium Hydroxide (Milk Of Magnesia) 30 ml PO DAILY PRN PRN Reason: Constipation Stop: 10/11/19 18:23 Magnesium Oxide (Mag-Ox) 400 mg PO QAM MAG Stop: 10/12/19 08:59 Last Admin: 09/15/19 08:42 Dose: 400 mg Documented by: Mirtazapine (Remeron) 7.5 mg PO HS MAG Stop: 10/12/19 21:59 Last Admin: 09/14/19 21:03 Dose: 7.5 mg Documented by: Sodium Chloride ([place] Nasal) 1 - 2 sprays NA PRN PRN PRN Reason: Nasal Dryness/Congestion Stop: 10/11/19 18:23 Last Admin: 09/12/19 00:41 Dose: 2 sprays Documented by: Ziprasidone (Geodon) 80 mg PO BIDM MAG Stop: 10/12/19 08:59 Last Admin: 09/15/19 08:42 Dose: 80 mg Documented by: Mental Health & Subst Abuse Tx Psychiatrist Name of Psychiatrist: [facility]- Dr Alves Psychiatrist's Date of Appointment with Psychiatrist: 09/21/19 Psychiatric Appointment Comment: [address] [facility], [address], [place] [address] Therapist Name of Therapist: TITO Sweetbread Trimmer Name of Sweetbread Trimmer: Shruti Mcbride Phone Number for Sweetbread Trimmer: [phone] Case Management Appointment Comment: Will see you at the CRR Post Discharge Appointments Primary Care Physician Name Of Family Doctor: [facility]- Dr. Jeff Lopez Primary Care Time of Appointment with PCP: Follow up as needed Provider Appointment Comment: [facility], [place] [address] Neurologist Name of Neurologist: Dr Rosalinda Caal Neurologist's Neurology Appointment Comment: [address] [facility], [place] [address] Contact Information Discharge Discharge Address: [address] [place] [address], [place] [address] Contact Information Comment: JERRELL BRYAN (1) Schizophrenia Schizophrenia type: paranoid schizophrenia Qualified Code(s): F20.0 - Paranoid schizophrenia (2) Hypertension Hypertension type: essential hypertension Qualified Code(s): I10 - Essential (primary) hypertension
[2019-09-15] MEDS: cloNIDine HCL 0.1 MG TAB PO SCH (20:59)
[2019-09-15] MEDS: FLUTICASONE PROPIONATE NA SPR 16 GM BTL NAE SCH (20:59)
[2019-09-15] MEDS: MIRTAZAPINE TAB 15 MG TAB PO SCH (21:00)
[2019-09-16] MEDS: MAGNESIUM OXIDE 400 MG TAB PO SCH (09:06)
[2019-09-16] MEDS: ZIPRASIDONE HCL 80 MG CAP PO SCH ×2 (09:07→18:09)
--- NOTE | 2019-09-16 10:12 | Psychiatric Progress Note ---
Date of Service September 16, 2019 Impression / Recommendations Impression 74-year-old male admitted voluntarily for inpatient psychiatric treatment with reports of suicidal ideation related to auditory hallucinations and "neurological problems." Pt verbalized having "no choice but to kill myself" due to frustration with dealing with these symptoms. He is unable to contract for safety outside of the inpatient setting, making psychiatric hospitalization medically necessary at this time. (1) Suicidal ideations: 09/12 - Admitted to a locked inpatient behavioral health unit, on q15 minute safety checks - Encourage medication initiation/adjustments as indicated - Encourage participation in group and recreational therapies - Gather collateral information from outpatient providers - Suggest family meeting to involve outpatient supports in safety planning - Arrange appropriate aftercare 09/13 - Pt admits to ongoing SI, mildly improved as voices are now "a little quieter" 09/14 - Pt denies active SI, but does admit to ongoing auditory hallucinations telling him to end his life - Reporting some improvement with utilization of distraction techniques and improved sleep - Remains unable at this time to contract for safety outside of hospital setting 09/15 - 09/16 - Denies active SI, reports worsening auditory hallucinations (2) Schizophrenia: 09/12 - Continue home dose of ziprasidone 80mg BID - Discontinue chlorpromazine, as patient feels it has been ineffective - Will initiate mirtazapine 7.5mg to assist with sleep, may also provide off- label benefit for anxiety symptoms. Risks, benefits, and potential side effects were reviewed. Pt verbalized understanding and was agreeable with beginning the medication - Consider augmenting with another antipsychotic medication to further target auditory hallucinations - Fasting glucose and lipid panel obtained in 02/2019 - all values WNL - Will continue to monitor for reported "neurological problems" at this time; determine if inpatient neurology consultation is indicated based on observations - Coordinate care with patient's outpatient psychiatric supports 09/13 - Continue home dose of ziprasidone 80mg BID - Continue mirtazapine 7.5mg qHS - patient reporting improved sleep last evening - Pt admits voices are "a little quieter" today - Coordinate care with outpatient supports and psychiatric providers 09/14 - Continue current medication regimen, as patient is reporting improvement in the presence of the voices and quality of sleep - Coordinating with outpatient providers today - CRR was called, denied any concerns related to patient being transported back on discharge 09/15 - Continue current medication regimen, symptoms worsening today 09/16 - Continue current medication regimen; patient reporting physical symptoms remain "about the same" - As symptoms have only minimally improved, he feels as though he is not able to contract for safe discharge today - Pt is optimistic for discharge tomorrow, and we will therefore coordinate with his CRR (3) Somatic complaints, multiple: 09/13 - Pt presented with complaints of "neurological problems" - He reports perceived changes in gait stating he is having to take "smaller steps" - Gait and ambulatory function assessed today - no gross abnormalities noted - Recommend AIMS assessment along with MoCA to assess for other etiology of reported concerns - No indication for neurology consultation at this time, but will continue to monitor 09/14 - Pt reporting continued dizziness and "head buzzing" - Apparently patient had an outpatient neurology appointment already scheduled for today - will reschedule to follow-up post-discharge for the above concerns - More thorough discussion today - patient is not verbalizing complaints consistent with EPS or expected medication side effects - AIMS - 0 - Will attempt MoCA 09/15 - Reports worsening "buzzing" in his head and complaints of balance concerns - MoCA completed today, patient scoring a 15/30, demonstrating global cognitive impairment - missing 4 points for visuospatial/executive functioning, 1 point for naming, 3 points for attention exhibiting difficulty with serial 7's, 3 points for language, 1 point for abstraction, and 1 point for orientation. - Reschedule outpatient neurology appointment 09/16 - Pt reports physical complaints are "about the same" - Neurology appointment rescheduled, unfortunately with next available appointment not until 11/17/2019 - pt was placed on cancelation list - Pt encouraged to follow-up with PCP for these complaints as needed (4) Substance abuse: 09/12 - History of substance abuse, specifically benzodiazepines - Continue to refrain from prescribing medication with abuse potential - Continue to coordinate care with outpatient providers (5) Hypertension: 09/12 - Continue clonidine 0.1mg qHS - BP within normal limits Risk Factors Assessment Do You Have Access To A Gun?: No Protective Factors Assessment Employed: No Interval History Identifying Information SCOTT ROBERTO is a 74-year-old M who currently lives in [place] at the [email or web address] [facility]. Pt has a history of schizophrenia, and was admitted on 09/11/19 17:32 on a 201 voluntary commitment for "neurological problems" and auditory hallucinations commanding patient to commit suicide. Chief Complaint "Um, I'm feeling about the same." Review of Systems Notes Constitutional: reports ongoing dizziness Cardiovascular: denied Respiratory: denied Gastrointestinal: denied Neurological: denied Psychiatric: denies symptoms other than stated above Total of at least 10 systems reviewed, pertinent positives as above and in HPI. Sleep Information Total Hours of Sleep: 8.25 Sleep Comments: pt appeared to sleep 1.25 hrs during evening shift. pt on q-15 minute checks Meal Information Percent Meal Consumed - Breakfast: 100 Percent Meal Consumed - Lunch: 100 Percent Meal Consumed - Dinner: 100 Nutrition Comment: per meal record Subjective Subjective Patient was seen & assessed and interval progress reviewed with treatment team. Staff report the patient has denied SI, but is reporting worsening feeling worse physically today. Pt did rate his mood an 8/10 and "hopeful" last evening, stating he goal was to work toward discharge. Pt was seen today to assess progress since admission. Pt provided verbal consent to allow Shereen Muhammad PA-C to observe today's encounter. Pt states he is feeling "about the same", and states, "I'd like to leave tomorrow." Pt admits he has been able to contract for safety here on the unit, but that auditory hallucinations are ongoing. Pt does not feel comfortable with discharge home today, as he continues to believe his physical complaints are being brought on by the voices; he is, however, hopeful that by tomorrow this will have improved and he will be able to contract for safe discharge. He was agreeable with us beginning to coordinate with the CRR regarding likely discharge tomorrow. He denied any other needs or concerns at this time. Physical Exam Psychiatric Orientation: alert, oriented to person, oriented to place and cooperative Apperance: appropriately dressed, + disheveled (hair appearing unkempt; not yet showered today) and appeared stated age Eye Contact: good eye contact Motor Behavior: steady gait and station (gait observed on way to interview space - no notable abnormalities) and no abnormal motor movements Speech: normal rate/rhythm/volume of speech (monotone, brief responses to questions) Affect: + flat affect Mood: no depressed mood ("about the same") Thought Process: goal directed thought process and + concrete thought process Thought Content: + preoccupation (with somatic complaints); no hopelessness and no worthlessness Suicidal Thoughts: denies suicidal thoughts Homicidal Thoughts: denies homicidal thoughts Hallucinations: + auditory hallucinations (ongoing, "about the same") Cognition: attention grossly intact and language grossly intact Insight: + impaired insight (likely chronic based on long history of schizophrenia) Judgement: + limited judgement Vital Signs (Past 24 Hours) Last Vital Signs Temp 36.9 C 09/16/19 06:45 Pulse 80 09/16/19 06:45 Resp 18 09/16/19 06:45 BP 144/87 H 09/16/19 06:45 Pulse Ox 98 09/11/19 18:16 Results & Data Current Inpatient Medications Current Inpatient Medications: Current Inpatient Medications Acetaminophen (Tylenol) 650 mg PO Q4H PRN PRN Reason: Headache or Minor Fever Stop: 10/11/19 18:23 Al Hydrox/Mg Hydrox/Simethicone (Maalox) 30 ml PO Q4H PRN PRN Reason: GI Upset Stop: 10/11/19 18:23 Bismuth Subsalicylate (Kaopectate) 15 ml PO PRN PRN PRN Reason: Loose Stool Stop: 10/11/19 18:23 Clonidine HCl (Catapres) 0.1 mg PO [facility] Stop: 10/11/19 21:59 Last Admin: 09/15/19 20:59 Dose: 0.1 mg Documented by: Fluticasone Propionate (Flonase) 2 sprays [facility] Stop: 10/12/19 21:59 Last Admin: 09/15/19 20:59 Dose: 2 sprays Documented by: Hydroxyzine HCl (Vistaril) 50 mg PO HSZ PRN PRN Reason: Insomnia Stop: 10/11/19 18:23 Hydroxyzine HCl (Vistaril) 25 mg PO Q4H PRN PRN Reason: Anxiety Stop: 10/11/19 18:23 Magnesium Hydroxide (Milk Of Magnesia) 30 ml PO DAILY PRN PRN Reason: Constipation Stop: 10/11/19 18:23 Magnesium Oxide (Mag-Ox) 400 mg PO QAM [facility] Stop: 10/12/19 08:59 Last Admin: 09/16/19 09:06 Dose: 400 mg Documented by: Mirtazapine (Remeron) 7.5 mg PO HS [facility] Stop: 02/24/20 21:59 Last Admin: 09/15/19 21:00 Dose: 7.5 mg Documented by: Sodium Chloride ([place] Nasal) 1 - 2 sprays NA PRN PRN PRN Reason: Nasal Dryness/Congestion Stop: 10/11/19 18:23 Last Admin: 09/12/19 00:41 Dose: 2 sprays Documented by: Ziprasidone (Geodon) 80 mg PO BIDM [facility] Stop: 10/12/19 08:59 Last Admin: 09/16/19 09:07 Dose: 80 mg Documented by: Mental Health & Subst Abuse Tx Psychiatrist Name of Psychiatrist: [facility]- Dr Alves Psychiatrist's Date of Appointment with Psychiatrist: 09/21/19 Psychiatric Appointment Comment: [address], [address], [place] [address] Therapist Name of Therapist: [employer] Name of Data Storage Specialist: Shruti Mcbride Phone Number for Data Storage Specialist: [phone] Case Management Appointment Comment: Will see you at the CRR Post Discharge Appointments Primary Care Physician Name Of Family Doctor: [facility]- Dr. Jeff Lopez Primary Care Time of Appointment with PCP: Follow up as needed Provider Appointment Comment: [address], [place] [address] Neurologist Name of Neurologist: Dr Rosalinda Caal Neurologist's Date of Appointment with Neurologist: 11/17/19 Time of Appointment with Neurologist: 11:00am Neurology Appointment Comment: [address], [place] [address] Other #1: Name of Aftercare Appointment: SARAH ROYCER Phone Number of Aftercare Appointment: [phone] Aftercare Appointment Comment: [address] [place] [address] Contact Information Discharge Discharge Address: [address] [place] [id number] Contact Information Comment: [facility] [place] (1) Schizophrenia Schizophrenia type: paranoid schizophrenia Qualified Code(s): F20.0 - Paranoid schizophrenia (2) Hypertension Hypertension type: essential hypertension Qualified Code(s): I10 - Essential (primary) hypertension
[2019-09-16] MEDS: FLUTICASONE PROPIONATE NA SPR 16 GM BTL NAE SCH (21:14)
[2019-09-16] MEDS: MIRTAZAPINE TAB 15 MG TAB PO SCH (21:15)
[2019-09-16] MEDS: cloNIDine HCL 0.1 MG TAB PO SCH (21:15)
[2019-09-17] MEDS: ZIPRASIDONE HCL 80 MG CAP PO SCH (08:36)
[2019-09-17] MEDS: MAGNESIUM OXIDE 400 MG TAB PO SCH (08:37)
--- NOTE | 2019-09-17 09:23 | Discharge Summary ---
Date of Service September 17, 2019 History of Present Illness Trey Santiago (Chuck) is a 74-year-old male admitted voluntarily for inpatient psychiatric treatment on 09/11/2019 after presenting to the ED with reports of suicidal ideation. Patient has a diagnosis of schizophrenia, and verbalized that he was experiencing auditory hallucinations commanding him to harm himself. Patient states he was also experiencing "neurological problems." Patient did inform this provider that the voices have told him they are causing the neurological problems, "they are making it happen so that I commit suicide." Patient had verbalized thoughts to overdose on Tylenol while in the emergency room, he is now denying a formal plan. Patient is, however, unable to contract for safety outside of the hospital stating, "they just kept getting worse, committing suicide is the only thing I can do to make them stop." The patient admits to difficulty sleeping for the past several weeks due to the presence of these voices, along with a "buzzing in my head." Patient states that it has also been difficult for him to concentrate. He does state "oddly enough, the voices went into complete remission for about 8 hours 3 days ago." Patient states that at that time, the voices told him they were giving up, but that they did come back stronger after about 8 hours. Patient does admit to increased anxiety due to the auditory hallucinations, but states "no depression." Regarding his "neurological problems" the patient states he is having difficulty walking and writing, and that his legs "jump all around." He describes this feeling as his legs "being spongy." Patient continues to feel as though the ziprasidone has been an effective medication; however, he states that the Thorazine is "a waste of time." Patient states that he has not noticed any improvement in his auditory hallucinations or anxiety after starting this medication. Patient is able to contract for safety in the inpatient hospital setting; however, is not feeling safe for discharge home. He denies other psychiatric symptoms besides those outlined above. Physical Exam Psychiatric Orientation: alert, oriented x 3 and cooperative Apperance: appropriately dressed and appropriately groomed Eye Contact: good eye contact Motor Behavior: steady gait and station (no instability noted despite reports of dizziness) and no abnormal motor movements Speech: normal rate/rhythm/volume of speech (Brief responses to questions) Affect: + flat affect (occasional and brief brightening) and + constricted affect Mood: no depressed mood and no anxious mood Thought Process: goal directed thought process and + concrete thought process Thought Content: reality based without delusions Suicidal Thoughts: denies suicidal thoughts and denies suicidal intent Homicidal Thoughts: denies homicidal thoughts Hallucinations: + auditory hallucinations (voices are ongoing, but are saying "nothing negative" at this time) Cognition: attention grossly intact and language grossly intact Insight: + limited insight (chronic) Judgement: + fair judgement Vital Signs (Past 24 Hours) Last Vital Signs Temp 36.8 C 09/17/19 08:52 Pulse 80 09/17/19 08:52 Resp 18 09/17/19 08:52 BP 144/87 H 09/17/19 08:52 Pulse Ox 98 09/17/19 08:52 Principal Diagnosis - Schizophrenia Psychiatric Data 74-year-old male admitted voluntarily for inpatient psychiatric treatment on 09/11/2019 after presenting to the ED with complaints of suicidal ideation. Patient had verbalized "neurological problems" and auditory hallucinations that were leading him to feel as though he had "no choice but to kill myself." Patient was unable to contract for safety outside of the hospital setting, and was therefore referred for inpatient psychiatric treatment. Patient is known to our unit from several prior psychiatric hospitalizations. He was last seen in 06/2019 for a brief stay related to similar concerns. On this admission, patient had verbalized persistent auditory hallucinations of "voices telling me they are making these neurological problems happen so that way I will commit suicide." Patient states that he has been experiencing dizziness, perception that he has to take smaller steps, "buzzing in my head", and increased difficulty with coordination. Patient states that these concerns have been worsening over the past several months, and we learned that patient had an outpatient neurology appointment scheduled for 1 of the days of his admission. This appointment was rescheduled to allow for follow-up of these neurological complaints, and patient was placed on a cancellation list to be contacted if sooner appointment was available. Patient was continued on his home dose of ziprasidone 80 mg twice daily with food. He believes that his home dose of chlorpromazine have been ineffective, and was therefore discontinued. As patient had reported poor sleep for "several weeks" prior to his admission, he was initiated on low-dose mirtazapine and was agreeable with continuing the medication at 7.5 mg on discharge. Over the course of the patient's admission, he participated in group programming. Patient generally is more withdrawn, but did eat meals out of his room and demonstrated appropriate interactions with staff. He had verbalized gradual resolution of suicidal ideation, and reported improvement in the severity and frequency of auditory hallucinations. At time of requested discharge, the patient is stating that the auditory hallucinations are still present; however, they are no longer commanding him to end his life and are saying "nothing negative." Communication was had with the [facility], and staff are agreeable with patient returning after discharge. He is able to contract for safety outside of the inpatient psychiatric hospital setting and is future oriented in conversation. Based on review of patient's case and their current presentation, risk of harm to self or others is no longer perceived to be acute. Management of symptoms on an outpatient basis seems the most appropriate and least restrictive setting. Pt seems appropriate for discharge with recommendation for consistent follow-up with outpatient psychiatric prescriber and immigration case worker. Pt verbalized understanding of discharge plan reviewed and is agreeable with plan to be discharged to his [facility] today. Day of Discharge Assessment Patient's case was reviewed and discussed with nursing and social work. Staff reports the patient continues to attend group programming, though is generally reserved. He does rate his mood an 8/10 and "hopeful" last evening. Patient does verbalize desire for discharge back to the [facility] this morning. Patient was seen today to assess readiness for discharge. He provides verbal consent to allow Shereen Muhammad PA-C to observe today's interaction. Patient states that he is still feeling "dizzy", but feels as though he is able to manage these physical concerns on an outpatient basis without them destabilizing his mental or emotional state. Patient denies suicidal ideation, and states he is able to contract for safety outside of the hospital setting. He does admit to ongoing auditory hallucinations, stating "the voices are still there", confirms they are saying "nothing negative." Patient had declined to write out his safety plan when approached by counselors, but is able to verbalize aspects of his safety plan during our interaction today. Patient admits to warning signs of lack of s leep, dizziness, and increased frequency of auditory hallucinations. He states that coping strategies that are effective for him include taking a walk, "resting", and visiting the library. Patient patient reports willingness to continue with his outpatient psychiatric appointments and regular meetings with his psychiatric immigration case worker. He feels this level of support will be adequate for him to maintain safety outside of the hospital. Patient denies any concerns related to his medication regimen, and is agreeable with continuing his medications as currently prescribed. Patient feels as though the goals of his hospitalization have been achieved, and is requesting discharge to the [facility] by taxi this morning. He denies other needs or concerns. Discharge plan was reviewed with the patient who verbalized understanding. ROS: Constitutional: reports feeling "dizzy" Cardiovascular: denied Respiratory: denied Gastrointestinal: denied Neurological: denied Psychiatric: denies symptoms other than stated above Total of at least 10 systems reviewed, pertinent positives as above and in HPI. Transition of Care Transition Of Care Record: was reviewed with the patient Advance Directives Advance Directives Information Provided: Yes Advance Directives: No Mental Health Advance Directive: No Advance Directives on File: No Power of Stem Mounter: No Advance Directives Reason:: Declines as Mental Health Visit. Risk Factors Assessment Presenting risk factors reviewed on discharge. Precipitating stressors mitigated by: admission for inpatient psychiatric observation and treatment, appropriate adjustments to medications to target symptoms, attendance of therapeutic treatment groups, development of healthy and effective coping strategies, discussion regarding safety planning, and education on diagnoses. Pt has demonstrated improvement in condition with regard to resolution of suicidal ideation, improvement in level of anxiety, improved ability to manage various physical complaints, and reduced preoccupation with chronic auditory hallucinations. At this time, patient is requesting discharge and is no longer considered to be at acute risk of harm to himself or others. Pt will be discharged with recommendation for ongoing outpatient psychiatric treatment. Pt is at increased risk of harm to self or others when compared to the general population and there are several risk factors which are not likely to be mitigated in an inpatient treatment setting. Male: Yes : Yes Do You Have Access To A Gun?: No Health Problems: No Mental Health Diagnoses: Yes Previous Attempt: Yes Previous Psychiatric Hospitalization: Yes Hopelessness: Yes Smoker: No (former smoker) Protective Factors Assessment : No Responsible for Young Children: No Employed: No Tobacco Cessation at Discharge Tobacco Cessation Medication Prescribed at Discharge: Not Applicable/Non-Smoker (former smoker, not currently smoking or utilizing nicotine replacement products) Total Time Total Time Spent: Greater Than 30 Minutes Total Time Includes: Examination of the patient, Discharge Planning, Medication Reconciliation and Communication with other providers Discharge Data Lab Results 09/11/19 09/11/19 09/11/19 11:30 11:30 12:30 WBC 5.36 RBC 4.58 L Hgb 14.5 Hct 42.8 MCV 93.4 MCH 31.7 MCHC 33.9 RDW Std Deviation 44.0 RDW Coeff of Namita 13.0 Plt Count 241 MPV 8.5 Immature Gran % (Auto) 0.2 Neut % (Auto) 64.3 Lymph % (Auto) 18.5 [place] % (Auto) 10.8 Eos % (Auto) 5.8 Baso % (Auto) 0.4 Immature Gran # (Auto) 0.01 Neut # (Auto) 3.45 Lymph # (Auto) 0.99 L [place] # (Auto) 0.58 Eos # (Auto) 0.31 Baso # (Auto) 0.02 Sodium Potassium Chloride Carbon Dioxide Anion Gap BUN Creatinine Est Cr Clr Drug Dosing Est GFR ( Amer) Est GFR (Non-Af Amer) BUN/Creatinine Ratio Glucose Calcium Total Bilirubin AST ALT Alkaline Phosphatase Total Protein Albumin Globulin Albumin/Globulin Ratio TSH Urine Color Yellow Urine Appearance Clear Urine pH 7.0 Ur Specific [place] 1.006 Urine Protein Negative Urine Glucose (UA) Negative Urine Ketones Negative Urine Blood Trace H Urine Nitrite Negative Urine Bilirubin Negative Urine Urobilinogen Negative Ur Leukocyte Esterase Negative Urine RBC 0-4 Urine WBC 0-5 Ur Epithelial Cells 0-5 Urine Bacteria Negative Nasal Screen MRSA (PCR) Salicylates Urine Opiates Screen Neg Ur Methadone, Qual Neg Acetaminophen Urine Barbiturates Neg Ur Phencyclidine (PCP) Neg U Amphetamin/Meth Scrn Neg MDMA (Ecstasy) Screen Neg U Benzodiazepines Scrn Neg Ur Cocaine Metabolite Neg U Marijuana (THC) Screen Neg Ethyl Alcohol mg/dL 09/11/19 09/11/19 09/11/19 12:30 12:30 12:30 WBC RBC Hgb Hct MCV MCH MCHC RDW Std Deviation RDW Coeff of Namita Plt Count MPV Immature Gran % (Auto) Neut % (Auto) Lymph % (Auto) [place] % (Auto) Eos % (Auto) Baso % (Auto) Immature Gran # (Auto) Neut # (Auto) Lymph # (Auto) [place] # (Auto) Eos # (Auto) Baso # (Auto) Sodium 139 Potassium 3.7 Chloride 107 Carbon Dioxide 29 Anion Gap 3.0 BUN 18 Creatinine 0.91 Est Cr Clr Drug Dosing 67.6 Est GFR ( Amer) 96.6 Est GFR (Non-Af Amer) 83.3 BUN/Creatinine Ratio 19.7 Glucose 142 H Calcium 9.0 Total Bilirubin 0.4 AST 11 L ALT 21 Alkaline Phosphatase 90 Total Protein 7.7 Albumin 3.7 Globulin 4.0 Albumin/Globulin Ratio 0.9 TSH 1.420 Urine Color Urine Appearance Urine pH Ur Specific [place] Urine Protein Urine Glucose (UA) Urine Ketones Urine Blood Urine Nitrite Urine Bilirubin Urine Urobilinogen Ur Leukocyte Esterase Urine RBC Urine WBC Ur Epithelial Cells Urine Bacteria Nasal Screen MRSA (PCR) Salicylates < 1.7 L Urine Opiates Screen Ur Methadone, Qual Acetaminophen < 2 L Urine Barbiturates Ur Phencyclidine (PCP) U Amphetamin/Meth Scrn MDMA (Ecstasy) Screen U Benzodiazepines Scrn Ur Cocaine Metabolite U Marijuana (THC) Screen Ethyl Alcohol mg/dL < 3.0 09/11/19 16:30 WBC RBC Hgb Hct MCV MCH MCHC RDW Std Deviation RDW Coeff of Namita Plt Count MPV Immature Gran % (Auto) Neut % (Auto) Lymph % (Auto) [place] % (Auto) Eos % (Auto) Baso % (Auto) Immature Gran # (Auto) Neut # (Auto) Lymph # (Auto) [place] # (Auto) Eos # (Auto) Baso # (Auto) Sodium Potassium Chloride Carbon Dioxide Anion Gap BUN Creatinine Est Cr Clr Drug Dosing Est GFR ( Amer) Est GFR (Non-Af Amer) BUN/Creatinine Ratio Glucose Calcium Total Bilirubin AST ALT Alkaline Phosphatase Total Protein Albumin Globulin Albumin/Globulin Ratio TSH Urine Color Urine Appearance Urine pH Ur Specific [place] Urine Protein Urine Glucose (UA) Urine Ketones Urine Blood Urine Nitrite Urine Bilirubin Urine Urobilinogen Ur Leukocyte Esterase Urine RBC Urine WBC Ur Epithelial Cells Urine Bacteria Nasal Screen MRSA (PCR) Negative Salicylates Urine Opiates Screen Ur Methadone, Qual Acetaminophen Urine Barbiturates Ur Phencyclidine (PCP) U Amphetamin/Meth Scrn MDMA (Ecstasy) Screen U Benzodiazepines Scrn Ur Cocaine Metabolite U Marijuana (THC) Screen Ethyl Alcohol mg/dL Hospital Course (1) Suicidal ideations: 09/12 - Admitted to a locked inpatient behavioral health unit, on q15 minute safety checks - Encourage medication initiation/adjustments as indicated - Encourage participation in group and recreational therapies - Gather collateral information from outpatient providers - Suggest family meeting to involve outpatient supports in safety planning - Arrange appropriate aftercare 09/13 - Pt admits to ongoing SI, mildly improved as voices are now "a little quieter" 09/14 - Pt denies active SI, but does admit to ongoing auditory hallucinations telling him to end his life - Reporting some improvement with utilization of distraction techniques and improved sleep - Remains unable at this time to contract for safety outside of hospital setting 09/15 - 09/16 - Denies active SI, reports worsening auditory hallucinations (2) Schizophrenia: 09/12 - Continue home dose of ziprasidone 80mg BID - Discontinue chlorpromazine, as patient feels it has been ineffective - Will initiate mirtazapine 7.5mg to assist with sleep, may also provide off- label benefit for anxiety symptoms. Risks, benefits, and potential side effects were reviewed. Pt verbalized understanding and was agreeable with beginning the medication - Consider augmenting with another antipsychotic medication to further target auditory hallucinations - Fasting glucose and lipid panel obtained in 02/2019 - all values WNL - Will continue to monitor for reported "neurological problems" at this time; determine if inpatient neurology consultation is indicated based on observations - Coordinate care with patient's outpatient psychiatric supports 09/13 - Continue home dose of ziprasidone 80mg BID - Continue mirtazapine 7.5mg qHS - patient reporting improved sleep last evening - Pt admits voices are "a little quieter" today - Coordinate care with outpatient supports and psychiatric providers 09/14 - Continue current medication regimen, as patient is reporting improvement in the presence of the voices and quality of sleep - Coordinating with outpatient providers today - CRR was called, denied any concerns related to patient being transported back on discharge 09/15 - Continue current medication regimen, symptoms worsening today 09/16 - Continue current medication regimen; patient reporting physical symptoms remain "about the same" - As symptoms have only minimally improved, he feels as though he is not able to contract for safe discharge today - Pt is optimistic for discharge tomorrow, and we will therefore coordinate with his CRR (3) Somatic complaints, multiple: 09/13 - Pt presented with complaints of "neurological problems" - He reports perceived changes in gait stating he is having to take "smaller steps" - Gait and ambulatory function assessed today - no gross abnormalities noted - Recommend AIMS assessment along with MoCA to assess for other etiology of reported concerns - No indication for neurology consultation at this time, but will continue to monitor 09/14 - Pt reporting continued dizziness and "head buzzing" - Apparently patient had an outpatient neurology appointment already schedul ed for today - will reschedule to follow-up post-discharge for the above concerns - More thorough discussion today - patient is not verbalizing complaints consistent with EPS or expected medication side effects - AIMS - 0 - Will attempt MoCA 09/15 - Reports worsening "buzzing" in his head and complaints of balance concerns - MoCA completed today, patient scoring a 15/30, demonstrating global cognitive impairment - missing 4 points for visuospatial/executive functioning, 1 point for naming, 3 points for attention exhibiting difficulty with serial 7's, 3 points for language, 1 point for abstraction, and 1 point for orientation. - Reschedule outpatient neurology appointment 09/16 - Pt reports physical complaints are "about the same" - Neurology appointment rescheduled, unfortunately with next available appointment not until 11/17/2019 - pt was placed on cancelation list - Pt encouraged to follow-up with PCP for these complaints as needed (4) Substance abuse: 09/12 - History of substance abuse, specifically benzodiazepines - Continue to refrain from prescribing medication with abuse potential - Continue to coordinate care with outpatient providers (5) Hypertension: 09/12 - Continue clonidine 0.1mg qHS - BP within normal limits Mental Health & Subst Abuse Tx Psychiatrist Name of Psychiatrist: [facility]- Dr Alves Psychiatrist's Date of Appointment with Psychiatrist: 09/21/19 Time of Appointment with Psychiatrist: 1:00 p.m. Psychiatric Appointment Comment: [address], [address], [place] [address] Psychiatrist Release of Information: Obtained, Reviewed and Signed Therapist Name of Therapist: TITO Bottom Sprayer Name of Bottom Sprayer: Shruti Mcbride Phone Number for Bottom Sprayer: [phone] Case Management Appointment Comment: Will see you at the [facility] as decided between you and him Bottom Sprayer Release of Information: Obtained, Reviewed and Signed Post Discharge Appointments Primary Care Physician Name Of Family Doctor: [facility]- Dr. Jeff Lopez Primary Care Time of Appointment with PCP: Follow up as needed Provider Appointment Comment: [address], [place] [address] Primary Care Release of Information: Obtained, Reviewed and Signed Neurologist Name of Neurologist: Dr Rosalinda Caal Neurologist's Date of Appointment with Neurologist: 11/17/19 Time of Appointment with Neurologist: 11:00am Neurology Appointment Comment: [address] [place] [address] Release of Information for Neurologist: Obtained, Reviewed and Signed Smoking Cessation Counseling Tobacco Cessation Medication Prescribed at Discharge: Not Applicable/Non-Smoker (former smoker, not currently smoking or utilizing nicotine replacement products) Other #1: Name of Aftercare Appointment: JERRELL BRYAN Phone Number of Aftercare Appointment: [phone] Aftercare Appointment Comment: [address] [place] [address] Release of Information Aftercare Appointment: Obtained, Reviewed and Signed Contact Information Discharge Discharge Address: [address] [place] [address] Contact Information Comment: JERRELL BRYAN Discharge Plan Discharge Items Patient Disposition: Home - Self-Care Reason For Visit: SCHIZOAFFECTIVE DISORDER Discharge Diagnosis: - Schizophrenia Condition on Discharge: Fair Activity: Resume your previous activity Non-emergency contact: Primary Care Provider, Psychiatrist and Software Applications Designer Call non-emergency contact if: you have any medication questions and your symptoms worsen Follow-up/Referrals: Jeff Lopez MD [Primary Care Provider] - Diet: Regular Addtl Attending Provider Instructions: SPECIAL CARE INSTRUCTIONS: 1. Follow through with your scheduled aftercare appointments. If unable to keep an appointment, please call to reschedule. 2. Take your medication only as prescribed. Medication should not be changed or stopped without the approval of your doctor. In the event of worsening symptoms or concerns about side effects, contact your doctor immediately. 3. Utilize new healthy coping skills, anger management skills, and stress management skills learned during your hospitalization. Journal feelings and process them with a support person. Identify stressors or situations that may result in relapse, deterioration or inappropriate behaviors and develop a plan to deal with those issues. 4. If your coping skills are ineffective and you are in crisis, contact your outpatient providers for direction. If unable to reach your providers, please call the CAN HELP LINE AT or go to the closest Emergency Room. 5. Avoid alcohol and un-prescribed drugs. 6. You have been provided with the Mental Health Advance Directives Pamphlet for your review. AFTERCARE APPOINTMENTS: * Please call your insurance company prior to your scheduled appointment to confirm your aftercare providers are covered. Take your insurance information to your appointments. WHO TO CALL AND WHEN: Medical Emergencies: For questions or emergencies related to your hospital stay, please contact the Inpatient Behavioral Health Unit at [phone]. A environmental aid is on-call 11/03 for the Behavioral Health Unit for emergencies At any time you feel your situation is an emergency, you may also call 911 immediately. Your Discharge Instructions noted above were prepared by provider Belinda Jones PA-C. Pending Studies at Discharge: No Stand-Alone Forms: My [facility], Smoking Cessation, Suicide Prevention Resources Medications and DC Order Prescriptions: New mirtazapine 7.5 mg tablet 7.5 mg PO HS 30 Days Qty: 30 RF: 0 fluticasone propionate 50 mcg/actuation [place],Suspension 2 spray SURJIT HS PRN (Reason: nasal congestion) Qty: 9.9 RF: 0 Continued clonidine HCl 0.1 mg Tablet 0.1 mg PO HS Qty: 30 RF: 0 ziprasidone HCl 80 mg capsule 80 mg PO BIDM RF: 0 magnesium oxide 400 mg magnesium tablet 400 mg PO DAILY RF: 0 melatonin 10 mg tablet 10 mg PO HS Qty: 0 RF: 0 Discontinued amoxicillin 500 mg capsule 500 mg PO BID RF: 0 chlorpromazine 100 mg tablet 100 mg PO TID RF: 0 Discharge Orders: Discharge Order (Routine); Ordered 09/17/19 Ordered By: Belinda Jones Admission Data Admit Date/Time: 09/11/19 17:32 Attending Provider: Alison Campos Admit Provider: Katina Andrews Primary Care Provider: Jeff Lopez Other Interventions: Discharge Summary Assessment (RN) Last Done: 09/17/19 09:27 PSY Interdisciplinary Discharge Planning Last Done: 09/17/19 09:27 DC Date/Time DO NOT enter until pt leaves facility: 09/17/19 09:48 Coding Level of Care Code 15853 D/C day mgmt > 30 min Diagnoses Suicidal ideations R45.851 Schizophrenia F20.0 Schizophrenia type: paranoid schizophrenia Somatic complaints, multiple R68.89 Substance abuse F19.10 Hypertension I10 Hypertension type: essential hypertension
== END 2019-09-17 09:48 | disposition home or self-care (01) | DRG 885 ==
LOC: ED 11:25 → SUATTDRO 17:32 → 3S 17:32

== ENCOUNTER 2019-10-08 21:42 | Inpatient (IN) ==
[2019-10-08] MEDS ORDERED: SODIUM CHLORIDE 0.9% 500 ML IV ONE (22:02)
--- NOTE | 2019-10-08 22:08 | Emergency Department Note ---
Entered by Lina Driscoll acting as a scribe for History of Present Illness General Chief complaint: Altered Mental Status Time Seen by Provider: 10/08/19 21:55 Source: EMS History of Present Illness Onset (ago): hour(s) (between 1 and 5) Location: head (general) Pain Consistency: + constant Quality: + other (altered mental status) Associated symptoms: + syncope; no chest pain and no shortness of breath The patient is a 74 year old male who presents to the Emergency Room with complaints of constant altered mental status beginning between 1 and 5 hours ago. EMS reports the patient lives in a fdc and was seen asleep 5 hours ago. EMS states the patient was found passed out on the floor of his room 1 hour ago after he did not show up to get his medications. EMS notes the patient's mental state is abnormal. EMS denies chest pain and shortness of breath. HPI and ROS limited due to cognitive status. Home Medications Home Medications Medication Instructions Recorded Confirmed Type clonidine HCl 0.1 mg PO HS #30 tab 05/25/19 10/08/19 Rx ziprasidone HCl 80 mg PO BIDM 07/07/19 10/08/19 History magnesium oxide 400 mg PO DAILY 09/10/19 10/08/19 History mirtazapine 7.5 mg PO HS 30 Days #30 tab 09/17/19 10/08/19 Rx alprazolam 0.5 mg PO BID 10/08/19 10/08/19 History benztropine 0.5 mg PO DAILY PRN 10/08/19 10/08/19 History docusate sodium 100 mg PO BID 10/08/19 10/08/19 History melatonin 3 - 10 spray PO HS 10/08/19 10/08/19 History Allergies Allergy/AdvReac Type Severity Reaction Status Date / Time No Known Allergies Allergy Verified 10/08/19 23:48 Past Med/Surg History Medical History Benzodiazepine abuse Closed head injury Fall Hypertension Hypokalemia Leukocytosis (08/14/13) Rhabdomyolysis (07/21/13) Scalp laceration Schizophrenia (Chronic) Tobacco use disorder Surgical History No pertinent past surgical history Family History Other No pertinent family history Social History Preferred Language: Serbian Communication Ability: Effective 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 Unobtainable due to cognitive status Physical Exam Vital Signs Vital Signs - 24 hr 10/08/19 21:52 10/08/19 22:00 10/08/19 22:02 Temperature Temperature Source Pulse Rate 78 71 70 Pulse Rate [Finger] Pulse Rate from SpO2 Sensor 76 71 70 Respiratory Rate 14 14 14 Blood Pressure 139/61 131/67 Blood Pressure [Right Arm] Blood Pressure Mean 99 93 Blood Pressure Mean [Right Arm] Pulse Oximetry 97 97 96 Oxygen Delivery Method Sepsis Recent Fever Within 48 Hours Sepsis Action Taken by Nursing 10/08/19 22:04 10/08/19 22:08 10/08/19 22:15 Temperature 34.1 C L Temperature Source Oral Pulse Rate 78 58 L Pulse Rate [Finger] Pulse Rate from SpO2 Sensor 57 L Respiratory Rate 16 12 Blood Pressure 139/61 110/58 L Blood Pressure [Right Arm] Blood Pressure Mean 87 76 Blood Pressure Mean [Right Arm] Pulse Oximetry 97 97 96 Oxygen Delivery Method Room Air Room Air Sepsis Recent Fever Within 48 Hours No Sepsis Action Taken by Nursing No Action Required 10/08/19 22:26 10/08/19 22:30 10/08/19 22:41 Temperature Temperature Source Pulse Rate 75 65 Pulse Rate [Finger] 77 Pulse Rate from SpO2 Sensor 74 65 Respiratory Rate 16 17 13 Blood Pressure 135/73 Blood Pressure [Right Arm] 110/58 L Blood Pressure Mean 100 Blood Pressure Mean [Right Arm] 75 Pulse Oximetry 93 95 96 Oxygen Delivery Method Room Air Sepsis Recent Fever Within 48 Hours Sepsis Action Taken by Nursing 10/08/19 22:45 10/08/19 22:49 10/08/19 23:00 Temperature Temperature Source Pulse Rate 66 65 Pulse Rate [Finger] Pulse Rate from SpO2 Sensor 67 65 Respiratory Rate 13 18 Blood Pressure 133/77 124/72 Blood Pressure [Right Arm] Blood Pressure Mean 92 91 Blood Pressure Mean [Right Arm] Pulse Oximetry 97 96 97 Oxygen Delivery Method Room Air Sepsis Recent Fever Within 48 Hours Sepsis Action Taken by Nursing 10/08/19 23:16 10/09/19 00:15 02/21/20 00:30 Temperature Temperature Source Pulse Rate 73 80 74 Pulse Rate [Finger] Pulse Rate from SpO2 Sensor 73 78 74 Respiratory Rate 14 15 18 Blood Pressure 126/64 128/61 132/69 Blood Pressure [Right Arm] Blood Pressure Mean 102 88 98 Blood Pressure Mean [Right Arm] Pulse Oximetry 98 93 96 Oxygen Delivery Method Sepsis Recent Fever Within 48 Hours Sepsis Action Taken by Nursing 10/09/19 00:45 10/09/19 01:00 Temperature Temperature Source Pulse Rate 74 72 Pulse Rate [Finger] Pulse Rate from SpO2 Sensor 75 72 Respiratory Rate 15 12 Blood Pressure 132/66 113/68 Blood Pressure [Right Arm] Blood Pressure Mean 87 84 Blood Pressure Mean [Right Arm] Pulse Oximetry 96 95 Oxygen Delivery Method Sepsis Recent Fever Within 48 Hours Sepsis Action Taken by Nursing GENERAL: The patient is listless and slow to respond to questioning. He responds appropriately but his responses are very delayed. EYES: The conjunctivae are clear. The pupils are round and reactive. EARS, NOSE, MOUTH AND THROAT: The nose is without any evidence of any deformity. Mucous membranes are moist. Tongue is midline. NECK: The neck is nontender and supple. RESPIRATORY: Normal respiratory effort is noted there is no evidence of wheezing rhonchi or rales CARDIOVASCULAR: Regular rate and rhythm noted there no murmurs rubs or gallops normal S1 normal S2. GASTROINTESTINAL: The abdomen is soft. Abdomen is nontender. MUSCULOSKELETAL/EXTREMITIES: There is no evidence of gross deformity full range of motion is noted in the hips and shoulders. There is some muscle rigidity noted over the upper and lower extremities. SKIN: There is no obvious evidence of any rash. There are no petechiae, pallor or cyanosis noted. NEUROLOGIC: Patient is oriented to person place and situation. Patient strength is diminished but symmetric. Course Course 2199: Past medical records reviewed. The patient was evaluated in room A12B. A complete history and physical exam was performed. 0: Upon reevaluation, I discussed findings and results with the patient. He verbalized agreement of the treatment plan. I spoke with Dr. Chinchilla of the [facility] Hospitalist Service. The patient will be evaluated for further management and care. 0010: The patient admitted to swallowing a large amount of pills, although he is unsure of what. Administered Medications Potassium Chloride/Sodium Chloride (Normal Saline W/20 Meq Kcl) 20 meq in 1,000 mls @ 125 mls/hr IV .Q8H MAG Stop: 11/08/19 00:44 Last Admin: 10/09/19 01:51 Dose: 125 mls/hr Documented by: [id number] Magnesium Sulfate/Dextrose (Magnesium Sulfate / D5w) 1 gm in 100 mls @ 100 mls/hr IV Q1H MAG Stop: 10/09/19 03:14 Last Admin: 10/09/19 01:52 Dose: 100 mls/hr Documented by: [id number] Ioversol (Optiray 320 100ml) 100 ml IV ONCE PRN PRN Reason: Interaction Checking Stop: 10/12/19 23:40 Last Admin: 10/08/19 23:42 Dose: 93 ml Documented by: [id number] Discontinued Medications Sodium Chloride (Nss) 500 mls @ 999 mls/hr IV .Q31M ONE Stop: 10/08/19 22:32 Last Infusion: 10/08/19 23:19 Dose: 0 mls/hr Documented by: [id number] Admin: 10/08/19 22:46 Dose: 999 mls/hr Documented by: [id number] Piperacillin Sod/Tazobactam Sod (Zosyn) 4.5 gm in 120 mls @ 240 mls/hr IV NOW ONE Stop: 10/08/19 23:34 Last Infusion: 10/09/19 00:30 Dose: 0 mls/hr Documented by: [id number] Admin: 10/08/19 23:14 Dose: 240 mls/hr Documented by: [id number] Sodium Chloride (Nss 1000ml) 1,000 mls @ 999 mls/hr IV .Q1H1M ONE Stop: 10/09/19 00:05 Last Infusion: 10/09/19 00:29 Dose: 0 mls/hr Documented by: [id number] Admin: 10/08/19 23:14 Dose: 999 mls/hr Documented by: [id number] Acetylcysteine 8,870 mg/ (Dextrose) 244.35 mls @ 200 mls/hr IV ONE ONE Stop: 10/09/19 02:32 Last Admin: 10/09/19 01:52 Dose: 200 mls/hr Documented by: [id number] Critical Care Time Critical Care Time: Yes Total Critical Care Time: 60 I have personally spent greater than 60 minutes of critical care time in the direct management of this patient. This includes bedside care, interpretation of diagnostic studies, and testing, discussion with consultants, patient, and f amily members, and other required patient management activities. This 60 minutes is in excess of all separately billable procedures. Medical Decision Making Differential Diagnosis Differential diagnosis:Etiologies such as metabolic, infection, hypoglycemia, electrolyte abnormalities, cardiac sources, intracerebral event, toxicologic, neurologic, as well as others were entertained Medical Records Attestation: I reviewed the patient's medical records. Home Medications Current Medication List: was personally reviewed by me Laboratory Data Attestation: I reviewed the patient's lab results. Result diagrams: 10/08/19 22:25 10/08/19 22: Lab Results 10/08/19 10/08/19 10/08/19 Range/Units 22:25 22:25 22: WBC 13.35 H (4.8-10.8) K/uL RBC 4.59 L (4.7-6.1) M/uL Hgb 14.6 (14.0-18.0) g/dL Hct 43.1 (42-52) % MCV 93.9 (80-100) fL MCH 31.8 (25-34) pg MCHC 33.9 (32-36) g/dL RDW Std Deviation 45.8 (36.4-46.3) fL RDW Coeff of Namita 13.4 (11.5-14.5) % Plt Count 296 (130-400) K/uL MPV 8.9 (7.4-10.4) fL Immature Gran % (Auto) 0.3 % Neut % (Auto) 87.9 % Lymph % (Auto) 7.8 % [place] % (Auto) 3.8 % Eos % (Auto) 0.1 % Baso % (Auto) 0.1 % Immature Gran # (Auto) 0.04 H (0.00-0.02) K/uL Neut # (Auto) 11.74 H (1.4-6.5) K/uL Lymph # (Auto) 1.04 L (1.2-3.4) K/uL [place] # (Auto) 0.51 (0.11-0.59) K/uL Eos # (Auto) 0.01 (0-0.5) K/uL Baso # (Auto) 0.01 (0-0.2) K/uL PT 10.3 (9.0-12.0) Seconds INR 1.0 (0.9-1.1) APTT 23.4 (21.0-31.0) Seconds PTT Ratio 0.9 ABG pH (7.35-7.45) ABG pCO2 (35-46) mmHg ABG pO2 (80-95) mmHg ABG HCO3 (19-24) mmol/L ABG O2 Saturation (90-95) % ABG Base Excess (-9-1.8) mEq/L Sixto Test (Pos) VBG pH (7.36-7.41) VBG pCO2 (38-50) mmHg VBG pO2 mmHg VBG HCO3 mmol/L VBG O2 Saturation % VBG Base Excess mEq/L Carboxyhemoglobin Oxygen Given Sodium 138 (136-145) mmol/L Potassium 3.3 L (3.5-5.1) mmol/L Chloride 107 (98-107) mmol/L Carbon Dioxide 16 L (21-32) mmol/L Anion Gap 15.0 H (3-11) BUN 21 H (7-18) mg/dl Creatinine 1.26 (0.6-1.4) mg/dl Est Cr Clr Drug Dosing 43.6 ml/min Est GFR ( Amer) 65.2 Est GFR (Non-Af Amer) 56.2 BUN/Creatinine Ratio 16.8 (10-20) Glucose 225 H (70-99) mg/dl Lactate (0.4-2.0) mmol/L Calcium 8.9 (8.5-10.1) mg/dl Magnesium 2.2 (1.8-2.4) mg/dl Total Bilirubin 0.4 (0.2-1) mg/dl AST 45 H (15-37) U/L ALT 60 (12-78) U/L Alkaline Phosphatase 103 (45-117) U/L Total Creatine Kinase 674 H (39-308) U/L CK-MB (CK-2) 6.7 H (0.5-3.6) ng/ml CK/CKMB % Calc 1.0 (0-3.0) Troponin I < 0.015 (0-0.045) ng/ml Total Protein 7.9 (6.4-8.2) gm/dl Albumin 3.9 (3.4-5.0) gm/dl Globulin 4.0 (2.5-4.0) gm/dl Albumin/Globulin Ratio 1.0 (0.9-2) Procalcitonin (0-0.5) ng/ml TSH 1.100 (0.300-4.500) uIu/ml Prolactin ng/ml Urine Color Urine Appearance (Clear) Urine pH (4.5-7.5) Ur Specific [place] (1.000-1.030) Urine Protein (Negative) Urine Glucose (UA) (Negative) Urine Ketones (Negative) Urine Blood (Negative) Urine Nitrite (Negative) Urine Bilirubin (Negative) Urine Urobilinogen (Negative) Ur Leukocyte Esterase (Negative) Salicylates (2.8-20) mg/dl Urine Opiates Screen (Neg) Ur Methadone, Qual (Neg) Acetaminophen (10-30) ug/ml Urine Barbiturates (Neg) Ur Phencyclidine (PCP) (Neg) U Amphetamin/Meth Scrn (Neg) MDMA (Ecstasy) Screen (Neg) U Benzodiazepines Scrn (Neg) Ur Cocaine Metabolite (Neg) U Marijuana (THC) Screen (Neg) Ethyl Alcohol mg/dL (0-3) mg/dl Influenza Type A (PCR) (Neg) Influenza Type B (PCR) (Neg) 10/08/19 10/08/19 10/08/19 Range/Units 22:25 22:25 22:25 WBC (4.8-10.8) K/uL RBC (4.7-6.1) M/uL Hgb (14.0-18.0) g/dL Hct (42-52) % MCV (80-100) fL MCH (25-34) pg MCHC (32-36) g/dL RDW Std Deviation (36.4-46.3) fL RDW Coeff of Namita (11.5-14.5) % Plt Count (130-400) K/uL MPV (7.4-10.4) fL Immature Gran % (Auto) % Neut % (Auto) % Lymph % (Auto) % [place] % (Auto) % Eos % (Auto) % Baso % (Auto) % Immature Gran # (Auto) (0.00-0.02) K/uL Neut # (Auto) (1.4-6.5) K/uL Lymph # (Auto) (1.2-3.4) K/uL [place] # (Auto) (0.11-0.59) K/uL Eos # (Auto) (0-0.5) K/uL Baso # (Auto) (0-0.2) K/uL PT (9.0-12.0) Seconds INR (0.9-1.1) APTT (21.0-31.0) Seconds PTT Ratio ABG pH (7.35-7.45) ABG pCO2 (35-46) mmHg ABG pO2 (80-95) mmHg ABG HCO3 (19-24) mmol/L ABG O2 Saturation (90-95) % ABG Base Excess (-9-1.8) mEq/L Sixto Test (Pos) VBG pH (7.36-7.41) VBG pCO2 (38-50) mmHg VBG pO2 mmHg VBG HCO3 mmol/L VBG O2 Saturation % VBG Base Excess mEq/L Carboxyhemoglobin Oxygen Given Sodium (136-145) mmol/L Potassium (3.5-5.1) mmol/L Chloride (98-107) mmol/L Carbon Dioxide (21-32) mmol/L Anion Gap (3-11) BUN (7-18) mg/dl Creatinine (0.6-1.4) mg/dl Est Cr Clr Drug Dosing ml/min Est GFR ( Amer) Est GFR (Non-Af Amer) BUN/Creatinine Ratio (10-20) Glucose (70-99) mg/dl Lactate 9.3 H* (0.4-2.0) mmol/L Calcium (8.5-10.1) mg/dl Magnesium (1.8-2.4) mg/dl Total Bilirubin (0.2-1) mg/dl AST (15-37) U/L ALT (12-78) U/L Alkaline Phosphatase (45-117) U/L Total Creatine Kinase (39-308) U/L CK-MB (CK-2) (0.5-3.6) ng/ml CK/CKMB % Calc (0-3.0) Troponin I (0-0.045) ng/ml Total Protein (6.4-8.2) gm/dl Albumin (3.4-5.0) gm/dl Globulin (2.5-4.0) gm/dl Albumin/Globulin Ratio (0.9-2) Procalcitonin < 0.05 (0-0.5) ng/ml TSH (0.300-4.500) uIu/ml Prolactin ng/ml Urine Color Yellow Urine Appearance Clear (Clear) Urine pH 5.0 (4.5-7.5) Ur Specific [place] 1.031 H (1.000-1.030) Urine Protein Negative (Negative) Urine Glucose (UA) 3+ H (Negative) Urine Ketones Trace H (Negative) Urine Blood Negative (Negative) Urine Nitrite Negative (Negative) Urine Bilirubin Negative (Negative) Urine Urobilinogen Negative (Negative) Ur Leukocyte Esterase Negative (Negative) Salicylates (2.8-20) mg/dl Urine Opiates Screen (Neg) Ur Methadone, Qual (Neg) Acetaminophen (10-30) ug/ml Urine Barbiturates (Neg) Ur Phencyclidine (PCP) (Neg) U Amphetamin/Meth Scrn (Neg) MDMA (Ecstasy) Screen (Neg) U Benzodiazepines Scrn (Neg) Ur Cocaine Metabolite (Neg) U Marijuana (THC) Screen (Neg) Ethyl Alcohol mg/dL (0-3) mg/dl Influenza Type A (PCR) (Neg) Influenza Type B (PCR) (Neg) 10/08/19 10/08/19 10/08/19 Range/Units 22:25 22:25 23:16 WBC (4.8-10.8) K/uL RBC (4.7-6.1) M/uL Hgb (14.0-18.0) g/dL Hct (42-52) % MCV (80-100) fL MCH (25-34) pg MCHC (32-36) g/dL RDW Std Deviation (36.4-46.3) fL RDW Coeff of Namita (11.5-14.5) % Plt Count (130-400) K/uL MPV (7.4-10.4) fL Immature Gran % (Auto) % Neut % (Auto) % Lymph % (Auto) % [place] % (Auto) % Eos % (Auto) % Baso % (Auto) % Immature Gran # (Auto) (0.00-0.02) K/uL Neut # (Auto) (1.4-6.5) K/uL Lymph # (Auto) (1.2-3.4) K/uL [place] # (Auto) (0.11-0.59) K/uL Eos # (Auto) (0-0.5) K/uL Baso # (Auto) (0-0.2) K/uL PT (9.0-12.0) Seconds INR (0.9-1.1) APTT (21.0-31.0) Seconds PTT Ratio ABG pH (7.35-7.45) ABG pCO2 (35-46) mmHg ABG pO2 (80-95) mmHg ABG HCO3 (19-24) mmol/L ABG O2 Saturation (90-95) % ABG Base Excess (-9-1.8) mEq/L Sixto Test (Pos) VBG pH 7.31 L (7.36-7.41) VBG pCO2 37 L (38-50) mmHg VBG pO2 34 mmHg VBG HCO3 18 mmol/L VBG O2 Saturation < 60.0 % VBG Base Excess -7.3 mEq/L Carboxyhemoglobin Oxygen Given Sodium (136-145) mmol/L Potassium (3.5-5.1) mmol/L Chloride (98-107) mmol/L Carbon Dioxide (21-32) mmol/L Anion Gap (3-11) BUN (7-18) mg/dl Creatinine (0.6-1.4) mg/dl Est Cr Clr Drug Dosing ml/min Est GFR ( Amer) Est GFR (Non-Af Amer) BUN/Creatinine Ratio (10-20) Glucose (70-99) mg/dl Lactate (0.4-2.0) mmol/L Calcium (8.5-10.1) mg/dl Magnesium (1.8-2.4) mg/dl Total Bilirubin (0.2-1) mg/dl AST (15-37) U/L ALT (12-78) U/L Alkaline Phosphatase (45-117) U/L Total Creatine Kinase (39-308) U/L CK-MB (CK-2) (0.5-3.6) ng/ml CK/CKMB % Calc (0-3.0) Troponin I (0-0.045) ng/ml Total Protein (6.4-8.2) gm/dl Albumin (3.4-5.0) gm/dl Globulin (2.5-4.0) gm/dl Albumin/Globulin Ratio (0.9-2) Procalcitonin (0-0.5) ng/ml TSH (0.300-4.500) uIu/ml Prolactin 9.12 ng/ml Urine Color Urine Appearance (Clear) Urine pH (4.5-7.5) Ur Specific [place] (1.000-1.030) Urine Protein (Negative) Urine Glucose (UA) (Negative) Urine Ketones (Negative) Urine Blood (Negative) Urine Nitrite (Negative) Urine Bilirubin (Negative) Urine Urobilinogen (Negative) Ur Leukocyte Esterase (Negative) Salicylates (2.8-20) mg/dl Urine Opiates Screen (Neg) Ur Methadone, Qual (Neg) Acetaminophen (10-30) ug/ml Urine Barbiturates (Neg) Ur Phencyclidine (PCP) (Neg) U Amphetamin/Meth Scrn (Neg) MDMA (Ecstasy) Screen (Neg) U Benzodiazepines Scrn (Neg) Ur Cocaine Metabolite (Neg) U Marijuana (THC) Screen (Neg) Ethyl Alcohol mg/dL (0-3) mg/dl Influenza Type A (PCR) Neg for Influ A (Neg) Influenza Type B (PCR) Neg for Influ B (Neg) 10/09/19 10/09/19 10/09/19 Range/Units 01:08 01:19 01:19 WBC (4.8-10.8) K/uL RBC (4.7-6.1) M/uL Hgb (14.0-18.0) g/dL Hct (42-52) % MCV (80-100) fL MCH (25-34) pg MCHC (32-36) g/dL RDW Std Deviation (36.4-46.3) fL RDW Coeff of Namita (11.5-14.5) % Plt Count (130-400) K/uL MPV (7.4-10.4) fL Immature Gran % (Auto) % Neut % (Auto) % Lymph % (Auto) % [place] % (Auto) % Eos % (Auto) % Baso % (Auto) % Immature Gran # (Auto) (0.00-0.02) K/uL Neut # (Auto) (1.4-6.5) K/uL Lymph # (Auto) (1.2-3.4) K/uL [place] # (Auto) (0.11-0.59) K/uL Eos # (Auto) (0-0.5) K/uL Baso # (Auto) (0-0.2) K/uL PT (9.0-12.0) Seconds INR (0.9-1.1) APTT (21.0-31.0) Seconds PTT Ratio ABG pH (7.35-7.45) ABG pCO2 (35-46) mmHg ABG pO2 (80-95) mmHg ABG HCO3 (19-24) mmol/L ABG O2 Saturation (90-95) % ABG Base Excess (-9-1.8) mEq/L Sixto Test (Pos) VBG pH (7.36-7.41) VBG pCO2 (38-50) mmHg VBG pO2 mmHg VBG HCO3 mmol/L VBG O2 Saturation % VBG Base Excess mEq/L Carboxyhemoglobin Oxygen Given Sodium (136-145) mmol/L Potassium (3.5-5.1) mmol/L Chloride (98-107) mmol/L Carbon Dioxide (21-32) mmol/L Anion Gap (3-11) BUN (7-18) mg/dl Creatinine (0.6-1.4) mg/dl Est Cr Clr Drug Dosing ml/min Est GFR ( Amer) Est GFR (Non-Af Amer) BUN/Creatinine Ratio (10-20) Glucose (70-99) mg/dl Lactate 1.7 (0.4-2.0) mmol/L Calcium (8.5-10.1) mg/dl Magnesium (1.8-2.4) mg/dl Total Bilirubin (0.2-1) mg/dl AST (15-37) U/L ALT (12-78) U/L Alkaline Phosphatase (45-117) U/L Total Creatine Kinase (39-308) U/L CK-MB (CK-2) (0.5-3.6) ng/ml CK/CKMB % Calc (0-3.0) Troponin I (0-0.045) ng/ml Total Protein (6.4-8.2) gm/dl Albumin (3.4-5.0) gm/dl Globulin (2.5-4.0) gm/dl Albumin/Globulin Ratio (0.9-2) Procalcitonin (0-0.5) ng/ml TSH (0.300-4.500) uIu/ml Prolactin ng/ml Urine Color Urine Appearance (Clear) Urine pH (4.5-7.5) Ur Specific [place] (1.000-1.030) Urine Protein (Negative) Urine Glucose (UA) (Negative) Urine Ketones (Negative) Urine Blood (Negative) Urine Nitrite (Negative) Urine Bilirubin (Negative) Urine Urobilinogen (Negative) Ur Leukocyte Esterase (Negative) Salicylates (2.8-20) mg/dl Urine Opiates Screen Neg (Neg) Ur Methadone, Qual Neg (Neg) Acetaminophen (10-30) ug/ml Urine Barbiturates Neg (Neg) Ur Phencyclidine (PCP) Neg (Neg) U Amphetamin/Meth Scrn Neg (Neg) MDMA (Ecstasy) Screen Neg (Neg) U Benzodiazepines Scrn Neg (Neg) Ur Cocaine Metabolite Neg (Neg) U Marijuana (THC) Screen Neg (Neg) Ethyl Alcohol mg/dL < 3.0 (0-3) mg/dl Influenza Type A (PCR) (Neg) Influenza Type B (PCR) (Neg) 10/09/19 10/09/19 10/09/19 Range/Units 01:19 01:21 01:33 WBC (4.8-10.8) K/uL RBC (4.7-6.1) M/uL Hgb (14.0-18.0) g/dL Hct (42-52) % MCV (80-100) fL MCH (25-34) pg MCHC (32-36) g/dL RDW Std Deviation (36.4-46.3) fL RDW Coeff of Namita (11.5-14.5) % Plt Count (130-400) K/uL MPV (7.4-10.4) fL Immature Gran % (Auto) % Neut % (Auto) % Lymph % (Auto) % [place] % (Auto) % Eos % (Auto) % Baso % (Auto) % Immature Gran # (Auto) (0.00-0.02) K/uL Neut # (Auto) (1.4-6.5) K/uL Lymph # (Auto) (1.2-3.4) K/uL [place] # (Auto) (0.11-0.59) K/uL Eos # (Auto) (0-0.5) K/uL Baso # (Auto) (0-0.2) K/uL PT (9.0-12.0) Seconds INR (0.9-1.1) APTT (21.0-31.0) Seconds PTT Ratio ABG pH 7.44 (7.35-7.45) ABG pCO2 28 L (35-46) mmHg ABG pO2 102 H (80-95) mmHg ABG HCO3 19 (19-24) mmol/L ABG O2 Saturation 98.0 H (90-95) % ABG Base Excess -4.2 (-9-1.8) mEq/L Sixto Test Pos (Pos) VBG pH (7.36-7.41) VBG pCO2 (38-50) mmHg VBG pO2 mmHg VBG HCO3 mmol/L VBG O2 Saturation % VBG Base Excess mEq/L Carboxyhemoglobin Cancelled Oxygen Given RA Sodium (136-145) mmol/L Potassium (3.5-5.1) mmol/L Chloride (98-107) mmol/L Carbon Dioxide (21-32) mmol/L Anion Gap (3-11) BUN (7-18) mg/dl Creatinine (0.6-1.4) mg/dl Est Cr Clr Drug Dosing ml/min Est GFR ( Amer) Est GFR (Non-Af Amer) BUN/Creatinine Ratio (10-20) Glucose (70-99) mg/dl Lactate (0.4-2.0) mmol/L Calcium (8.5-10.1) mg/dl Magnesium (1.8-2.4) mg/dl Total Bilirubin (0.2-1) mg/dl AST (15-37) U/L ALT (12-78) U/L Alkaline Phosphatase (45-117) U/L Total Creatine Kinase (39-308) U/L CK-MB (CK-2) (0.5-3.6) ng/ml CK/CKMB % Calc (0-3.0) Troponin I (0-0.045) ng/ml Total Protein (6.4-8.2) gm/dl Albumin (3.4-5.0) gm/dl Globulin (2.5-4.0) gm/dl Albumin/Globulin Ratio (0.9-2) Procalcitonin (0-0.5) ng/ml TSH (0.300-4.500) uIu/ml Prolactin ng/ml Urine Color Urine Appearance (Clear) Urine pH (4.5-7.5) Ur Specific [place] (1.000-1.030) Urine Protein (Negative) Urine Glucose (UA) (Negative) Urine Ketones (Negative) Urine Blood (Negative) Urine Nitrite (Negative) Urine Bilirubin (Negative) Urine Urobilinogen (Negative) Ur Leukocyte Esterase (Negative) Salicylates < 1.7 L (2.8-20) mg/dl Urine Opiates Screen (Neg) Ur Methadone, Qual (Neg) Acetaminophen 282 H* (10-30) ug/ml Urine Barbiturates (Neg) Ur Phencyclidine (PCP) (Neg) U Amphetamin/Meth Scrn (Neg) MDMA (Ecstasy) Screen (Neg) U Benzodiazepines Scrn (Neg) Ur Cocaine Metabolite (Neg) U Marijuana (THC) Screen (Neg) Ethyl Alcohol mg/dL (0-3) mg/dl Influenza Type A (PCR) (Neg) Influenza Type B (PCR) (Neg) Imaging Data Radiologist's Impression: Radiology results as stated below per my review and the radiologist's interpretation: XR chest 1V portable HISTORY: SEPSIS COMPARISON: Chest 08/30/2015. FINDINGS: No pleural effusions. No pneumothorax. Interstitial prominence at the lung bases may be due to the portable technique. The heart is top normal in siz e. Slight prominence of the mediastinum is also likely due to the portable technique. No evidence for pulmonary edema. No new focal lung consolidations to suggest pneumonia. IMPRESSION: Portable study. No acute process within the chest. ACT 112: Negative or not required by law. Electronically signed by: Colin Irwin M.D. 10/08/2019 10:[address]AST CT DOSE: 614.27 mGy.cm HISTORY: Altered mental status. TECHNIQUE: Multiaxial CT images of the head were performed without the use of intravenous contrast. Automated exposure control was utilized for this study. A dose lowering technique was utilized adhering to the principles of ALARA. Comparison: Head CT 09/11/2019. Findings: The mastoid air cells are clear. The calvarium and skull base are intact. There is no mass, hematoma, midline shift, acute infarct. White matter hypodensity is nonspecific but suggestive of microvascular ischemic change. The ventricles and sulci demonstrate mild age-related involutional changes. This remains unchanged. Small fluid level within the left maxillary sinus which has improved. Impression: No acute intracranial abnormality. Atrophy and microvascular ischemic changes. Improvement in the left maxillary sinus disease. ACT 112: Negative or not required by law. Electronically signed by: Colin Irwin M.D. 10/08/2019 10:52 PM Preliminary Findings Only See Final Report For Complete Findings CT ABDOMEN & PELVIS With Contrast: Motion degraded study. Mild fluid in small bowel loops, nonspecific, enteritis not excluded in the appropriate clinical setting. Diverticulosis. Normal caliber appendix. Hepatic hypodensities measuring up to 6.5 cm. Mildly distended gallbladder. Limited evaluation for pancreatitis due to motion. Correlate with biochemical markers if there is clinical concern. Left renal pelviectasis or extrarenal pelvis. Normal caliber ureter. No evidence of ureteral stone. Nephrolithiasis. Bladder diverticula. Small hiatal hernia. Mild basilar atelectasis/pneumonitis. Trace pericardial fluid. Additional incidental findings. Radiologist: Caroline Louis M.D. Study ready at 23:52 and initial results transmitted at 00:27 ECG Data Attestation: I personally reviewed and interpreted this ECG as follows: Indication: + altered mental status Rate (beats per minute): 73 Rhythm: + normal sinus ECG ST segments: + Nonspecific ST abnormalities ECG Findings: no PACs and no PVCs Comparison ECG Date: from (09/11/2019) Change: no significant change Blood Pressure Blood Pressure Findings: Elevated blood pressure Blood Pressure Disposition: further management by hospitalist VICK Maya The patient is a 74-year-old male who presented to the emergency department by ambulance for altered mental status. The patient was found to have hypothermia. I was concerned the patient's condition may represent an infectious process. The patient was treated with IV fluids and IV antibiotics in the emergency department. He was also rewarmed using a rewarming blanket. I discussed the patient's laboratory and radiographic studies with him. He was not able to give me a complete history although on subsequent reevaluation he was feeling somewhat improved and was able to give more history to the admitting team. I discussed this case with the on-call [facility] hospitalist group. After their evaluation the patient admitted to taking an [id number] medication but was very vague about the intent or the exact medication he took. The case was discussed with Poison Control Center. The patient had other laboratory studies added. The patient's condition continued to improve while he was in the emergency department. N-acetylcysteine protocol was started in the emergency department after consultation with poison control center. Impression & Plan Sepsis, Altered mental status, Acidosis, lactic, Tylenol overdose Discharge Plan Visit Data Chief Complaint: Altered Mental Status ED Provider: Jeff Madrid Discharge Problem: Sepsis, Altered mental status, Acidosis, lactic, Tylenol overdose Patient Disposition: Being Evaluated by Hospitalist Forms Stand Alone Forms: My [facility] Prescriptions Prescriptions: No Action clonidine HCl 0.1 mg Tablet 0.1 mg PO HS Qty: 30 RF: 0 ziprasidone HCl 80 mg capsule 80 mg PO BIDM RF: 0 magnesium oxide 400 mg magnesium tablet 400 mg PO DAILY RF: 0 mirtazapine 7.5 mg tablet 7.5 mg PO HS 30 Days Qty: 30 RF: 0 docusate sodium 100 mg Tablet 100 mg PO BID RF: 0 benztropine 0.5 mg Tablet 0.5 mg PO DAILY PRN (Reason: prn) RF: 0 melatonin 10 mg tablet 3 - 10 spray PO HS RF: 0 alprazolam 0.5 mg Tablet Extended Release 24 Hr 0.5 mg PO BID RF: 0 Referrals Referrals: Jeff Lopez MD [Primary Care Provider] - Discharge Problem: Sepsis Qualifiers: Sepsis type: sepsis due to unspecified organism Severe sepsis acute organ dysfunction type: unspecified The scribe's documentation has been prepared under my direction and personally reviewed by me in its entirety. I confirm that the note above accurately reflects all work, treatment, procedures, and medical decision making performed by me.
--- NOTE | 2019-10-08 22:19 | XRay Report ---
XR chest 1V portable HISTORY: SEPSIS COMPARISON: Chest 08/30/2015. FINDINGS: No pleural effusions. No pneumothorax. Interstitial prominence at the lung bases may be due to the portable technique. The heart is top normal in size. Slight prominence of the mediastinum is also likely due to the portable technique. No evidence for pulmonary edema. No new focal lung consoli dations to suggest pneumonia. IMPRESSION: Portable study. No acute process within the chest. ACT 112: Negative or not required by law. Electronically signed by: Colin Irwin M.D. 10/08/2019 10:18 PM
[2019-10-08 22:35] LABS: Hematocrit (blood only) 43.1 % (42-52); Hemoglobin 14.6 g/dL (14.0-18.0); Mean Corpuscular Hemoglobin 31.8 pg (25-34); Mean Corpuscular Hgb Conc 33.9 g/dL (32-36); Mean Corpuscular Volume 93.9 fL (80-100); Mean Platelet Volume 8.9 fL (7.4-10.4); Platelet Count 296 K/uL (130-400); RDW Coefficient of Variation 13.4 % (11.5-14.5); RDW Standard Deviation 45.8 fL (36.4-46.3); Red Blood Count 4.59 M/uL (4.7-6.1); White Blood Count 13.35 K/uL (4.8-10.8)
[2019-10-08 22:37] LABS: Appearance Urine Clear (Clear); Bilirubin Urine Negative (Negative); Blood Urine Negative (Negative); Color Urine Yellow; Glucose Urine UA 3+ (Negative); Ketones Urine Trace (Negative); Leukocyte Esterase Urine Negative (Negative); Nitrite Urine Negative (Negative); Protein Urine Negative (Negative); Specific Gravity Urine 1.031 (1.000-1.030); Urobilinogen Urine Negative (Negative)
[2019-10-08 22:45] LABS: Partial Thromboplastin Ratio 0.9; Partial Thromboplastin Time 23.4 Seconds (21.0-31.0); Prothrombin Time 10.3 Seconds (9.0-12.0)
--- NOTE | 2019-10-08 22:53 | CT Scan Report ---
HEAD CT NONCONTRAST CT DOSE: 614.27 mGy.cm HISTORY: Altered mental status. TECHNIQUE: Multiaxial CT images of the head were performed without the use of intravenous contrast. A utomated exposure control was utilized for this study. A dose lowering technique was utilized adheri ng to the principles of ALARA. Comparison: Head CT 09/11/2019. Findings: The mastoid air cells are clear. The calvarium and skull base are intact. There is no mass, hematoma, midline shift, acute infarct. White matter hypodensity is nonspecific but suggestive of mi crovascular ischemic change. The ventricles and sulci demonstrate mild age-related involutional scott es. This remains unchanged. Small fluid level within the left maxillary sinus which has improved. Impression: No acute intracranial abnormality. Atrophy and microvascular ischemic changes. Improvement in the lef t maxillary sinus disease. ACT 112: Negative or not required by law. Electronically signed by: Colin Irwin M.D. 10/08/2019 10:52 PM
[2019-10-08 22:55] LABS: Albumin Level 3.9 gm/dl (3.4-5.0); BUN Creatinine Ratio 16.8 (10-20); Basophils # (auto) 0.01 K/uL (0-0.2); Basophils % (auto) 0.1 %; Blood Urea Nitrogen 21 mg/dl (7-18); Calcium 8.9 mg/dl (8.5-10.1); Carbon Dioxide 16 mmol/L (21-32); Chloride 107 mmol/L (98-107); Creatinine Clr Calc Pharmacy 43.6 ml/min; Eosinophils # (auto) 0.01 K/uL (0-0.5); Eosinophils % (auto) 0.1 %; Est GFR (African American) 65.2; Est GFR (Non-African American) 56.2; Glucose 225 mg/dl (70-99); Immature Granulocytes # (auto) 0.04 K/uL (0.00-0.02); Immature Granulocytes % (auto) 0.3 %; Lymphocytes # (auto) 1.04 K/uL (1.2-3.4); Lymphocytes % (auto) 7.8 %; Magnesium 2.2 mg/dl (1.8-2.4); Monocytes # (auto) 0.51 K/uL (0.11-0.59); Monocytes % (auto) 3.8 %; Neutrophils # (auto) 11.74 K/uL (1.4-6.5); Neutrophils % (auto) 87.9 %; Potassium 3.3 mmol/L (3.5-5.1); Sodium 138 mmol/L (136-145)
[2019-10-08 22:56] LABS: Alanine Aminotransferase 60 U/L (12-78); Aspartate Aminotransferase 45 U/L (15-37)
[2019-10-08 23:04] LABS: Alkaline Phosphatase 103 U/L (45-117); Bilirubin,Total 0.4 mg/dl (0.2-1); Total Protein 7.9 gm/dl (6.4-8.2); Troponin I < 0.015 ng/ml (0-0.045)
[2019-10-08] MEDS ORDERED: SODIUM CHLORIDE 0.9% 1000ML 1,000 ML IV ONE (23:05)
[2019-10-08] MEDS ORDERED: PIPERACILLIN/TAZOBACTAM 4.5 GM/120 ML BAG IV ONE (23:05)
[2019-10-08] MEDS ORDERED: PIPERACILL/TAZOBAC CONSULT ACTIVE PRN (23:05)
[2019-10-08 23:07] LABS: Influenza A virus by PCR Neg for Influ A (Neg); Influenza B virus by PCR Neg for Influ B (Neg)
[2019-10-08 23:30] LABS: Base Excess VBG -7.3 mEq/L; HCO3 VBG 18 mmol/L; PCO2 VBG 37 mmHg (38-50); PO2 VBG 34 mmHg; pH VBG 7.31 (7.36-7.41)
[2019-10-08 23:31] LABS: Oxygen Saturation VBG < 60.0 %
[2019-10-08] MEDS ORDERED: IOVERSOL 100ml IV PRN (23:41)
[2019-10-08 23:49] LABS: Creatine Kinase 674 U/L (39-308); Creatine Kinase MB 6.7 ng/ml (0.5-3.6)
[2019-10-09] MEDS ORDERED: DEXTROSE 5% IV ONE ×4 (01:19→23:59)
[2019-10-09] MEDS ORDERED: ACETYLCYSTEINE IV ONE ×4 (01:19→23:59)
--- NOTE | 2019-10-09 01:28 | History & Physical Report ---
Date of Service October 09, 2019 Assessment & Plan (1) Acetaminophen overdose: Jack is a 74-year-old male with a past medical history of schizophrenia on ziprasidone and mirtazapine therapy who presented after being found altered by his roommates in a prison and was found hypothermic with an elevated lactate on admission. On discussion with the patient he revealed that he attempted to commit suicide by ingesting 100 Tylenol, denies taking it with any other medications, because he found the voices in his right ear telling him to kill himself to be intolerable. Attempted overdose, Tylenol ABG, CBC, salicylate, Tylenol, carboxyhemoglobin, urine drug screen ordered CMP shows early signs of elevated AST, this is been normal or low for him in the past Received 1.5 L NSS bolus, followed by NSS plus KCl maintenance Discussed with poison control toxicology. Recommended initiation of NAC 21hr protocol: Loading dose 150 mg/KG over 1 hour, Second dose of 50 MG per KG over 4 hours, Third dose 100 mg/kg over 16 hours Mag 2 g IV given for QT of 550, repeat pending Lactate acutely elevated to 9.3, normalized on repeat VBG on admission showed mild respiratory acidosis (7.31, PCO2 37, HCO3 18,), repeat ABG (7.44, 28, 102, 19) - Tylenol acutely elevated to >300. Repeat trend ordered for 0600. - Continue NAC protocol as above, CMP @ 1200hrs (~custodial through 16 hour NAC bag). - No role for dialysis at this time unless acute renal failure develops - If pts cognitive status worsens, can discuss with poison control for adjunct treatment, none indicated at this time. QTp - QT 550 on admission, Mg 2g IV given with repeat - Qt decreased to <400, continue to follow - Ziprasidone extensively hepatically metabolized. Held in the setting of APAP intoxication Schizophrenia with suicidality, anxiety Patient currently having auditory command hallucinations in his right ear. Hears voices which tell him to kill himself incessantly. He feels these have increased in frequency and have worsened over the last several years. He reports that he feels safe in the hospital right now, but still is having active thoughts of committing suicide Patient reports he thinks he has been on clozapine in the past but does not think it helped Patient on ziprasidone 80 mg p.o. twice daily M, mirtazapine 7.5 mg p.o. at bedtime, and clonidine 0.1 mg nightly prior to admission Patient reports he does not normally take benztropine or alprazolam. Patient with prolonged QT of 550 on admission, mag as above Patient on alprazolam 0.5 mg p.o. Holding p.o. meds in the setting of QT prolongation and intoxication above - Psych consulted FEN/GI: Safe tray Disposition: PCU CODE STATUS: Full Code. Pt previously full code on admission, History of Present Illness Primary Care Provider: Jeff Lopez MD Ev Santiago is a 74-year-old male with a past medical history of schizophrenia who presented to the emergency department after he was checked on in a prison when he did not come down for medications and was found with altered mental status in his room. On arrival to the emergency department he was hypothermic with an elevated lactate. On discussion with patient he opened up that he attempted to commit suicide earlier in the evening around 4:00 when he took "100 of regular medicine "in an attempt to kill himself due to voices in his right ear which normally tel l him to commit suicide becoming intolerable. On further history he reports that the medication was Tylenol, and he did not take it with any other medications although he takes his ziprasidone, mirtazapine, and clonidine regularly as directed. He reports he currently feels safe in the hospital, but still wants to kill himself because the voices in his ear are intolerable. He feels like he does not have a choice. He denies any homicidal ideation, or desire to harm others. He feels that these voices have been getting worse steadily over the past several years, and are a constant buzzing. He denies visual hallucinations. He does not have any family in the area, and reports that there is no when he would like contacted while he is in the hospital. He reports he lives in a prison ([facility]) in [place]. He has had past suicidal attempts in the past, he said his last was 3 years ago by medication when the voices were intolerable at that time. He is seen Alison nicolas in the past. He denies other medical problems, and reports he has never had a cardiac arrest. Review of systems otherwise negative. He denies fever, chills, sweats, chest pain, difficulty breathing, abdominal pain. Patient was recently admitted to [facility] and discharged 09/17/2019 after he was admitted voluntarily for inpatient psychiatric treatment on 09/11 due to suicidal ideation. He was experiencing similar command hallucinations at that time. Social history: Denies alcohol, tobacco, substance use. Lives in a prison as above Medical history: Schizophrenia, hypertension Allergies: No known drug allergies Surgical history: Noncontributory Family history: Denies Allergies Allergy/AdvReac Type Severity Reaction Status Date / Time No Known Allergies Allergy Verified 10/08/19 23:48 Home Medications Home Medications Medication Instructions Recorded Confirmed Type clonidine HCl 0.1 mg PO HS #30 tab 05/25/19 10/08/19 Rx ziprasidone HCl 80 mg PO BIDM 07/07/19 10/08/19 History magnesium oxide 400 mg PO DAILY 09/10/19 10/08/19 History mirtazapine 7.5 mg PO HS 30 Days #30 tab 09/17/19 10/08/19 Rx alprazolam 0.5 mg PO BID 10/08/19 10/08/19 History benztropine 0.5 mg PO DAILY PRN 10/08/19 10/08/19 History docusate sodium 100 mg PO BID 10/08/19 10/08/19 History melatonin 3 - 10 spray PO HS 10/08/19 10/08/19 History Past Med/Surg History Medical History Benzodiazepine abuse Closed head injury Fall Hypertension Hypokalemia Leukocytosis (08/14/13) Rhabdomyolysis (07/21/13) Scalp laceration Schizophrenia (Chronic) Tobacco use disorder Surgical History No pertinent past surgical history Family History Other No pertinent family history Social History Preferred Language: Citizen Of [place] Communication Ability: Effective 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 Not oriented to month or year. Appears withdrawn. HEENT: Atraumatic, normocephalic. Oropharynx moist. Pulm: CTAB A&P. -wheezes, -rales, -rhonchi. Symmetrical chest rise. No increase work of breathing. No respiratory distress. Cardiac: RRR, -mrg. Radial pulses intact and symmetrical. Abdominal: Nontender, nondistended, soft. BS present. Psychiatric: Mood "I do not know ", affect restricted, flat. Speech with reduced prosody, slightly increased latency. Makes good eye contact. Answers questions appropriately. Linear thought process. Endorses auditory hallucinations in his right ear as noted in HPI. Not responding to internal stimuli at time of visit. Patient is slightly disheveled with dirt/leaves crusted onto his right forearm without underlying abrasions. Endorses SI, active. Denies HI. CN II: Visual rhoades are full to confrontation. Pupils are equal and react to light and accomidation. Visual acuity grossly intact. CN III, IV, : At primary gaze, there is no eye deviation. EoM intact without nystagmus. No visual field cuts. CN V: Facial sensation is intact to soft touch in all 3 divisions bilaterally. CN VII: No facial asymmetry, full strength to eyebrow raise, smile, eye close, and cheek puff. CN VII: Hearing is grossly intact. CN IX, X: Palate elevates symmetrically. Phonation is normal without dysarthria. CN XI: Head turning and shoulder shrug are intact CN XII: Tongue protrudes midline. Reflexes: Patellar DTR 2+ Bilaterally Sensory: Light touch, pinprick intact in upper and low extremities without deficit or asymmetry. Strength: RUE: Shoulder flexion/extension/internal rotation/external rotation, elbow flexion/extension, finger flexion/extension, clinical courier strength, interosseous 5/5 LUE: Shoulder flexion/extension/internal rotation/external rotation, elbow flexion/extension, finger flexion/extension, clinical courier strength, interosseous 5/5 RLE: Hip flexion, knee flexion/extension, ankle plantar flexion/dorsiflexion 5/5 LLE: Hip flexion, knee flexion/extension, ankle plantar flexion/dorsiflexion 5/5 Results & Data Vital Signs (Past 12 Hours) Vital Signs Temp Pulse Pulse Resp BP BP Pulse Ox 10/09/19 01:00 72 12 113/68 95 10/09/19 00:45 74 15 132/66 96 10/09/19 00:30 74 18 132/69 96 10/09/19 00:15 80 15 128/61 93 10/08/19 23:16 73 14 126/64 98 10/08/19 23:00 65 18 124/72 97 10/08/19 22:49 96 10/08/19 22:45 66 13 133/77 97 10/08/19 22:41 65 13 135/73 96 10/08/19 22:30 75 17 95 10/08/19 22:26 77 16 110/58 L 93 10/08/19 22:15 58 L 12 110/58 L 96 10/08/19 22:08 97 10/08/19 22:04 34.1 C L 78 16 139/61 97 10/08/19 22:02 70 14 96 10/08/19 22:00 71 14 131/67 97 10/08/19 21:52 78 14 139/61 97 Supervising Physician Co-Signing Physician Notes Attending addendum: I have physically seen this patient, have supervised the medical residents activities, and agree with the H&P unless as otherwise noted. Assessment and Plan: Intentional acetaminophen overdose- Full work-up ordered. Admit to monitored bed N.p.o. status Follow serial CBC with differential, chemistry profile, PT/PTT, magnesium level and acetaminophen levels. IV fluids. QT interval mildly prolonged at 550, with no signs of ectopy or tachycardia. Magnesium sulfate 2 g IV given in ED. Significant lactic acidosis with level 9.3. Repeat per protocol. N-acetylcysteine per protocol. Consult psychiatry. Case discussed with poison control. Schizophrenia with intentional suicide attempt- Psychiatry to be consulted. Hold medications until seen by psychiatry Remainder of orders and notations as noted. Resident Activity Tracking Resident Involvement: Resident Care Provided Care Provided: Adult Hospital Medicine
[2019-10-09 01:42] LABS: Allen Test Pos (Pos); Base Excess ABG -4.2 mEq/L (-9-1.8); HCO3 ABG 19 mmol/L (19-24); PCO2 ABG 28 mmHg (35-46); PO2 ABG 102 mmHg (80-95); pH ABG 7.44 (7.35-7.45)
[2019-10-09 01:43] LABS: Amphetamines+Metham, Urine Neg (Neg); Barbiturates, Urine Neg (Neg); Benzodiazepine, Urine Neg (Neg); Cocaine, Urine Neg (Neg); MDMA (Ecstacy), Urine Neg (Neg); Methadone, Urine Neg (Neg); Opiate, Urine Neg (Neg); Phencyclidine, Urine Neg (Neg)
[2019-10-09] MEDS: NSS + 20MEQ KCL 20 MEQ/1,000 ML BAG IV SCH ×4 (01:51→23:04)
[2019-10-09] MEDS: MAGNESIUM SULFATE / D5W 1 GM/100 ML BAG IV SCH ×2 (01:52→03:14)
[2019-10-09 02:32] LABS: Acetaminophen 282 ug/ml (10-30); Salicylate < 1.7 mg/dl (2.8-20)
[2019-10-09] MEDS ORDERED: ONDANSETRON INJ 2 MG/ML 2 ML VIAL ONE (02:58)
--- NOTE | 2019-10-09 06:17 | Communication Note ---
Date of Service: October 09, 2019 Case discussed with toxicology/poison control overnight. Repeat LFTs/INR at 1900hrs, repeat EKG and Mag level at 1000hrs. Continue NAC protocol. Tylenol repeat for trend pending.
[2019-10-09] MEDS ORDERED: PIPERACILLIN/TAZOBACTAM 3.375 GM in DEXTROSE 5% 100 ML IV ONE (06:30)
--- NOTE | 2019-10-09 06:33 | CT Scan Report ---
CT abd pelvis IV con only CLINICAL HISTORY: Sepsis. Altered mental status. COMPARISON STUDY: December 2011 TECHNIQUE: The patient was scanned in a dynamic helical fashion during intravenous administration of 93 cc of Optiray 320. A dose lowering technique was utilized adhering to the principles of ALARA. CT DOSE: 438.40 mGy.cm FINDINGS: Lower chest: There is moderate respiratory motion artifact. There is dependent atelectasis. There are no significant pleural effusions. Liver: There is significant motion artifact. There are multiple hypodense hepatic masses measuring up to 6.4 cm in diameter. These approach water attenuation likely represent cysts. Gallbladder: Unremarkable. Spleen: Normal in size and attenuation. Pancreas: Unremarkable. Adrenal glands: Unremarkable. Kidneys: There are multiple nonobstructing left renal calculi. No solid renal masses are visualized. Bowel: There are no transition zones indicate bowel obstruction. The appendix appears normal. There i s colonic diverticulosis There is no acute diverticulitis. There is a moderate amount of right coloni c stool. Peritoneum: There is no intraperitoneal free air or abdominal ascites. Vasculature: The abdominal aorta is normal in course and caliber. Adenopathy: None. Pelvic viscera: The prostate is enlarged Skeletal structures: No destructive osseous lesions are seen. IMPRESSION: 1. Motion degraded study 2. No evidence of bowel obstruction. No evidence of free air 3. Normal appendix. No evidence of acute diverticulitis 4. Multiple hepatic cysts 5. Right-sided nephrolithiasis ACT 112: Negative or not required by law. Electronically signed by: Barry Méndez M.D. 10/09/2019 6:32 AM
[2019-10-09 07:02] LABS: INR 1.2 (0.9-1.1); Prothrombin Time 11.8 Seconds (9.0-12.0)
[2019-10-09] MEDS: POTASSIUM CHLORIDE 20 MEQ TABCR PO SCH ×2 (07:38→20:25)
[2019-10-09 09:04] LABS: Albumin Globulin Ratio 0.9 (0.9-2); Albumin Level 3.1 gm/dl (3.4-5.0); BUN Creatinine Ratio 19.9 (10-20); Bilirubin,Total 0.8 mg/dl (0.2-1); Calcium 8.2 mg/dl (8.5-10.1); Creatinine Clr Calc Pharmacy 79.2 ml/min; Est GFR (African American) 103.8; Est GFR (Non-African American) 89.6; Globulin 3.5 gm/dl (2.5-4.0); Potassium 3.1 mmol/L (3.5-5.1); Total Protein 6.6 gm/dl (6.4-8.2)
[2019-10-09] MEDS: PIPERACILLIN/TAZOBACTAM 3.375 GM in DEXTROSE 5% 100 ML IV SCH ×2 (11:09→20:23)
--- NOTE | 2019-10-09 12:15 | Psychiatric Consultation ---
Date of Consultation October 09, 2019 Impression / Recommendations Impression Dr. Trent Dorsey was directly involved in review and discussion of the patient's case and participated in medical decision making regarding treatment recommendations. RECOMMENDATIONS: 10/09 - Pt admits that acetaminophen overdose was done in an attempt to end his life. He states that he remains suicidal as "it is not worth it". Pt has a long mental health history and was most recently admitted on our unit in and 06/2019 for SI with plan to overdose. 302 petitioning statement was completed after psychiatric evaluation - though, patient is not currently protesting recommendation for inpatient psychiatric treatment after medical clearance. 302 Warrant should be pursued if patient is threatening to leave the hospital AMA prior to medical clearance. - Recommend resuming ziprasidone 80mg BIDM when medically appropriate (agree with holding acutely due to primary hepatic metabolism and QTc prolongation on admisson). Pt reports preference to remain off mirtazapine due to reported "nightmares" - Pt does report he has not slept in 4 days, and has previously responded to temazepam. On a limited basis, and in the supervised hospital setting, it does seem reasonable to utilize 15mg of temazepam on a short-term basis to assist with acute sleep concerns. We are not recommending this medication be continued long-term and are not recommending patient be discharged on the medication due to history of benzodiazepine abuse and recent suicide attempt by overdose - We also do not recommend continuation of alprazolam or initiation of other benzodiazepine to target anxiety - patient has a documented history of benzodiazepine abuse and we have historically attempted to avoid using abusable substances for this patient. Pt did fill #60 tablets of 0.5mg alprazolam on 09/21/2019. We are suggesting this home medication be discontinued on discharge from the medical floor - We appreciate the opportunity to participate in the care of this patient, please reach out to our service with any additional questions or updates (1) Acetaminophen overdose: Encounter type: initial encounter Injury intent: intentional self-harm Qualified Code(s): T39.1X2A - Poisoning by 4-Aminophenol derivatives, intentional self-harm, initial encounter (2) Schizophrenia: Schizophrenia type: paranoid schizophrenia Qualified Code(s): F20.0 - Paranoid schizophrenia (3) Hypertension: Hypertension type: essential hypertension Qualified Code(s): I10 - Essential (primary) hypertension (4) Benzodiazepine abuse: Risk Factors Assessment Do You Have Access To A Gun?: No Psych History Identifying Data 74-year-old male admitted medically on 10/08/2019 after presenting to the ED status post intentional overdose of #100 pills of Tylenol. Psychiatric consultation was requested to evaluate the patient status post suicide attempt. Chief Complaint "I feel good." History of Present Illness Trey Santiago (Chuck) is a 74-year-old male admitted medically on 10/08/2019 after presenting to the ED status post toxic ingestion of #100 pills of Tylenol. It was reported that patient appeared altered to the other individuals living at his halfway. It was reported that he was later found passed out on the floor of the halfway and was brought to the ED by EMS. Pt did admit that he had overdosed on medication in an attempt to end his life. Pt cited poor sleep, ongoing auditory hallucinations, and buzzing in his ear as acute stressors for this suicide attempt. Patient was cooperative with psychiatric evaluation. He provided verbal consent to allow Shereen Muhammad PA-C to observe today's encounter. Patient states that the reason for his suicide attempt was "I cannot get rid of that buzzing sound. It is so annoying, I could not do anything. I had just had enough." Patient admits that he took Tylenol overdose with the intent to end his life, as he could no longer tolerate the buzzing noises. Patient does admit to ongoing auditory hallucinations, which he admits are frustrating as well. Patient states that he had been having intermittent thoughts to overdose on Tylenol for several weeks, stating he went to the store to purchase the Tylenol with the intent to use it to end his life. Patient states he is unsure if the medication was extra strength or standard dose, but states he took "the whole bottle of 100 pills." Surprisingly, patient states he is in good spirits today, and states "I feel good." Patient denies any significant change in his mood, stating "it feels pretty normal." He does admit that he is frustrated as he has not slept in 4 days, continues to hear a "buzzing" sound in his ear, and has been dealing with auditory hallucinations telling him to commit suicide by overdosing. He states that he is not presently hearing the voices, but does admit that he feels his current medication regimen is not effective at calming them consistently. Patient was asked his thoughts regarding his suicide attempt, attempting to gauge if patient was remorseful for attempting to end his life or regretful that the attempt was not successful. Patient's only comments are "well, I know Tylenol is not the way to go. It takes 3 or 4 days to kill you. I could not buy heroin or I would have done that. But that can get you into a lot of trouble." Patient does admit to ongoing suicidal ideation. He was informed that inpatient psychiatric treatment would be recommended once he is medically cleared, he did not argue with this recommendation during time of this evaluation. Patient denied other needs or concerns from our service at this time, and was informed we will continue to round on him during his medical hospitalization. Past Psychiatric History Current Psychiatric Diagnosis: Schizophrenia Outpatient Services: Psychiatrist - Dr. Alves - [facility] Psychiatry Digital Advertising Analyst - Colin Guadalupe Previous Psych Admissions: [facility]: 09/2016, 02/2019 - 05/2019; and again in 06/2019 [facility]: 05/2019 Do You Have Access To A Gun?: No History of Previous Suicide Attempt: Yes Describe Attempts in the Past: this is patient's second overdose Past Medication Trials: Per previous documentation: 1. Zyprexa 2. Risperdal 3. Abilify 4. Haldol - dystonia 5. Amitriptyline 6. Imipramine 7. Ambien 8. Thorazine - NMS 9. Temazepam 10.Cymbalta - GI symptoms 11.Navane 12.Loxitane 13.Invega 14.Latuda 15.Ativan 16.Xanax 17.Seroquel 18.Geodon Allergies Allergy/AdvReac Type Severity Reaction Status Date / Time No Known Allergies Allergy Verified 10/08/19 23:48 Home Medications Home Medications Medication Instructions Recorded Confirmed Type clonidine HCl 0.1 mg PO HS #30 tab 05/25/19 10/08/19 Rx ziprasidone HCl 80 mg PO BIDM 07/07/19 10/08/19 History magnesium oxide 400 mg PO DAILY 09/10/19 10/08/19 History mirtazapine 7.5 mg PO HS 30 Days #30 tab 09/17/19 10/08/19 Rx alprazolam 0.5 mg PO BID 10/08/19 10/08/19 History benztropine 0.5 mg PO DAILY PRN 10/08/19 10/08/19 History docusate sodium 100 mg PO BID 10/08/19 10/08/19 History melatonin 3 - 10 spray PO HS 10/08/19 10/08/19 History Family History Per 09/2016 admission: cousin with schizophrenia who committed suicide. Mother with schizophrenia. Substance Abuse History Patient is a former smoker. He has historically denied alcohol use and use of other illicit substances. No known history of substance abuse treatment in the past. 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[employer]) Marital Status: Single Number Of Children: None Beliefs That Will Affect Care: None History of Legal Problems: None Psychological Trauma History Comment: None Patient History Medical History Benzodiazepine abuse Closed head injury Fall Hypertension Hypokalemia Leukocytosis (08/14/13) Rhabdomyolysis (07/21/13) Scalp laceration Schizophrenia (Chronic) Tobacco use disorder Surgical History No pertinent past surgical history Family History Other No pertinent family history Social History Preferred Language: Peruvian Communication Ability: Effective 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: No Beliefs That Will Affect Care: None Current Living Situation: Alone Other Information That Helps Us Care for You: No Feels Safe at Home: Yes Safety Concerns: Feels Safe At This Time Smoking Status: Unknown if ever smoked Hx Alcohol Use: No Hx Substance Use: No Physical Exam Psychiatric: Orientation: alert, oriented x 3 and cooperative (And pleasant) Apperance: appropriately dressed (Wearing paper scrubs), + disheveled (Appearing somewhat unkempt) and appeared stated age Eye Contact: good eye contact Motor Behavior: no abnormal motor movements (Observed while laying in bed) Speech: normal rate/rhythm/volume of speech (Brief responses to questions) Affect: + flat affect Mood: + irritable mood (Reports frustration with poor sleep and "ear buzzing"); no depressed mood ("I guess I been feeling all right") Thought Process: goal directed thought process and + concrete thought process Thought Content: reality based without delusions, + hopelessness and + worthlessness Suicidal Thoughts: + reports suicidal thoughts, + reports suicidal plan and + reports suicidal intent Patient remains suicidal with intent to end his life. He does state "Tylenol is not the way to do it, but I could not buy heroin - now that's the way to do it." Homicidal Thoughts: denies homicidal thoughts Hallucinations: + auditory hallucinations; no visual hallucinations Cognition: attention grossly intact and language grossly intact Insight: + impaired insight Judgement: + impaired judgement Vital Signs (Past 24 Hours): Last Vital Signs Temp 36.8 C 10/09/19 11:06 Pulse 73 10/09/19 11:06 Resp 19 10/09/19 11:06 BP 158/77 H 10/09/19 11:06 Pulse Ox 95 10/09/19 11:06 Review of Systems Constitutional: reports fatigue, as patient states he has not slept in 4 days HEENT: reports chronic "buzzing" in his ear Cardiovascular: denied Respiratory: denied Gastrointestinal: denied Neurological: denied Psychiatric: denies symptoms other than stated above Total of at least 10 systems reviewed, pertinent positives as above and in HPI. Results & Data (PSY) Medications Administered Potassium Chloride/Sodium Chloride (Normal Saline W/20 Meq Kcl) 20 meq in 1,000 mls @ 125 mls/hr IV .Q8H [facility] Stop: 11/08/19 00:44 Last Admin: 10/09/19 07:38 Dose: 125 mls/hr Documented by: [id number] Infusion: 10/09/19 07:38 Dose: 125 mls/hr Documented by: [id number] Admin: 10/09/19 01:51 Dose: 125 mls/hr Documented by: [id number] Acetylcysteine 5,910 mg/ (Dextrose) 1,029.55 mls @ 62.5 mls/hr IV TODAY@0700 [address] Stop: 10/09/19 23:28 Last Admin: 10/09/19 07:38 Dose: 62.5 mls/hr Documented by: [id number] Piperacillin Sod/Tazobactam (Sod 3.375 gm/ Dextrose) 115 mls @ 28.75 mls/hr IV Q8H MAG; Protocol Stop: 10/11/19 11:59 Last Admin: 10/09/19 11:09 Dose: 28.8 mls/hr Documented by: [id number] Ioversol (Optiray 320 100ml) 100 ml IV ONCE PRN PRN Reason: Interaction Checking Stop: 10/12/19 23:40 Last Admin: 10/08/19 23:42 Dose: 93 ml Documented by: [id number] Potassium Chloride (Klor-Con M20) 20 meq PO BID MAG Stop: 11/08/19 08:59 Last Admin: 10/09/19 07:38 Dose: 20 meq Documented by: [id number] Coding Level of Care Code 98728 U Intl Hosp Care Lvl 3 Diagnoses Acetaminophen overdose T39.1X2A Encounter type: initial encounter Injury intent: intentional self-harm Schizophrenia F20.0 Schizophrenia type: paranoid schizophrenia Hypertension I10 Hypertension type: essential hypertension Benzodiazepine abuse F13.10
[2019-10-09 19:38] LABS: INR 1.3 (0.9-1.1); Prothrombin Time 12.7 Seconds (9.0-12.0)
[2019-10-09 20:11] LABS: Albumin Level 2.9 gm/dl (3.4-5.0); Bilirubin Direct 0.2 mg/dl (0-0.2); Bilirubin,Total 0.8 mg/dl (0.2-1); Total Protein 6.3 gm/dl (6.4-8.2)
--- NOTE | 2019-10-09 21:17 | Electrocardiogram Report ---
Test Reason : Blood Pressure : / mmHG Vent. Rate : 073 BPM Atrial Rate : 073 BPM P-R Int : 176 ms QRS Dur : 088 ms QT Int : 500 ms P-R-T Axes : 071 035 059 degrees QTc Int : 550 ms Poor data quality, interpretation may be adversely affected Normal sinus rhythm Nonspecific ST abnormality Prolonged QT Abnormal ECG When compared with ECG of 11-SEP-2019 12:23, QT has lengthened Confirmed by Tarik Marrero ([id number]) on 10/09/2019 9:16:54 PM Referred By: REFERRED SELF Confirmed By:Tarik Marrero
--- NOTE | 2019-10-09 22:00 | Electrocardiogram Report ---
Test Reason : Blood Pressure : / mmHG Vent. Rate : 069 BPM Atrial Rate : 069 BPM P-R Int : 198 ms QRS Dur : 100 ms QT Int : 398 ms P-R-T Axes : 059 048 066 degrees QTc Int : 426 ms Normal sinus rhythm Nonspecific ST and T wave abnormality Abnormal ECG When compared with ECG of 09-OCT-2019 02:41, No significant change was found Confirmed by Tarik Marrero ([id number]) on 10/09/2019 9:59:50 PM Referred By: REFERRED SELF Confirmed By:Tarik Marrero
[2019-10-09] MEDS ORDERED: AcetylCYSTEINE IV 21 HR REGIMEN (>40KG) IV STA (22:57)
--- NOTE | 2019-10-09 23:04 | Communication Note ---
Date of Service: October 09, 2019 Got paged that poison control was recommending repeat Acetylcysteine administration with re-check of PT/INR and hepatic panel 12 hours later. Orders placed.
--- NOTE | 2019-10-09 23:52 | Billing Data ---
Date of Service October 09, 2019 Coding Level of Care Code 75684 Initial Inpt Care Lvl 3
[2019-10-10] MEDS: PIPERACILLIN/TAZOBACTAM 3.375 GM in DEXTROSE 5% 100 ML IV SCH ×2 (04:24→11:04)
[2019-10-10] MEDS: NSS + 20MEQ KCL 20 MEQ/1,000 ML BAG IV SCH ×3 (06:25→22:36)
[2019-10-10] MEDS: POTASSIUM CHLORIDE 20 MEQ TABCR PO SCH ×2 (07:59→21:07)
[2019-10-10] MEDS: TEMAZEPAM 15 MG CAPSULE PO STA ×2 (11:02→11:44)
[2019-10-10 12:06] LABS: Hematocrit (blood only) 40.9 % (42-52); Hemoglobin 14.4 g/dL (14.0-18.0); Mean Corpuscular Hemoglobin 32.1 pg (25-34); Mean Corpuscular Hgb Conc 35.2 g/dL (32-36); Mean Corpuscular Volume 91.3 fL (80-100); Mean Platelet Volume 8.8 fL (7.4-10.4); Platelet Count 245 K/uL (130-400); RDW Coefficient of Variation 13.3 % (11.5-14.5); Red Blood Count 4.48 M/uL (4.7-6.1)
[2019-10-10 12:18] LABS: INR 1.4 (0.9-1.1); Prothrombin Time 13.9 Seconds (9.0-12.0)
[2019-10-10 12:42] LABS: Albumin Level 3.1 gm/dl (3.4-5.0); BUN Creatinine Ratio 9.7 (10-20); Bilirubin,Total 1.2 mg/dl (0.2-1); Calcium 8.5 mg/dl (8.5-10.1); Creatinine Clr Calc Pharmacy 84.5 ml/min; Est GFR (African American) 104.9; Est GFR (Non-African American) 90.5; Potassium 3.5 mmol/L (3.5-5.1); Total Protein 6.6 gm/dl (6.4-8.2)
[2019-10-10 12:44] LABS: Bilirubin Direct 0.4 mg/dl (0-0.2)
--- NOTE | 2019-10-10 13:47 | Hospitalist Progress Note ---
Date of Service October 10, 2019 Assessment & Plan (1) Acetaminophen overdose: Jack is a 74-year-old male with a past medical history of schizophrenia on ziprasidone and mirtazapine therapy who presented after being found altered by his roommates in a correction and was found hypothermic with an elevated lactate on admission. On discussion with the patient he revealed that he attempted to commit suicide by ingesting 100 Tylenol, denies taking it with any other medications, because he found the voices in his right ear telling him to kill himself to be intolerable. intentional overdose, intended to kill himself continue treatment with N-acetylcysteine discussed with poison control today, recommend repeat dosing at 5pm with 16 hours AST and ALT further elevated today, INR is 1.4 and Bili is 1.2 certainly with signs of hepatitis but no liver failure will repeat levels at 5am tomorrow will not be medically stable for discharge to inpatient psych until overdose is completely treated (2) Suicidal intent: patient admits to wanting to kill himself will need to go to inpatient psych once medically stable if he would not agree then will need 302 currently he is agreeable (3) Schizophrenia: holding current home regimen until Tylenol overdose completed will resume antipsychotics once in psychiatry unit (4) Insomnia: psychiatry is okay with Restoril 15mg HS (5) Paranoia: very anxious should NOT use benzodiazepines such as lorazepam or alprazolam due to h/o abuse and suicidal behavior he is prescribed this at home but will not give here Admission and Anticipated Discharge Date Admission Date: October 09, 2019 Anticipated date of discharge: 10/12/19 Subjective patient feeling fine today, does not have any RUQ pain, nausea not sleeping at all, this is normal for him with his schizophrenia offered him Restoril today, he will take it poor appetite, he says that food will interfere with the "experiments" reviewed labs, AST and ALT rising slightly today to 347 and 467, INR is 1.4 and bilirubin up to 1.2 continue N-acetylcysteine poison control in constant communication with RN they recommend another bag of N-acetylcysteine this evening, repeat LFT, INR at 5am appreciate psychiatric consult, will need to go inpatient psych once medically stable Review of Systems Review of Systems: All systems reviewed & are unremarkable except as noted in HPI & below Constitutional: + fatigue, + weakness and + insomnia; no fever, no chills and no sweats Respiratory: no cough and no dyspnea Cardiovascular: no chest pain and no edema Gastrointestinal: no abdominal pain, no nausea, no vomiting, no constipation and no diarrhea/loose stools Genitourinary: no dysuria Psychiatric: + change in appetite, + suicidal ideation, + anxiety and + paranoia Physical Exam Constitutional: WD/WN, vitals as above Eyes: PERRL, conjunctivae normal, anicteric sclerae ENMT: external ear and nose normal, oropharynx normal Neck: trachea midline, no thyromegaly Respiratory: normal respiratory effort, lungs clear to auscultation Cardiovascular: RRR, no murmur, no edema Gastrointestinal (Abdomen): normal bowel sounds, soft, nontender, no hepatosplenomegaly Musculoskeletal: no cyanosis or clubbing, extremities motor strength 5/5 Skin: no rashes, warm and dry Neurologic: patellar DTR's 2+ bilat, sensation intact and PERRL, EOMI, accommodation nl, no face palsy, no dysarthria Psychiatric: Orientation: alert and oriented x 3 Affect: + anxious affect Thought Content: + delusions Lymphatic: no cervical or axillary lymphadenopathy Results & Data ([facility]) Vital Signs (Past 12 Hours) Vital Signs Temp Pulse Pulse Resp BP Pulse Ox 10/10/19 11:30 37 C 74 18 149/80 H 94 10/10/19 08:00 74 10/10/19 07:08 37 C 72 16 148/78 H 94 10/10/19 03:06 36.8 C 75 18 150/76 H 93 Laboratory Results Laboratory Results - last 24 hr 10/09/19 10/09/19 10/09/19 19:14 19:14 21:27 WBC RBC Hgb Hct MCV MCH MCHC RDW Std Deviation RDW Coeff of Namita Plt Count MPV PT 12.7 H INR 1.3 H Sodium Potassium Chloride Carbon Dioxide Anion Gap BUN Creatinine Est Cr Clr Drug Dosing Est GFR ( Amer) Est GFR (Non-Af Amer) BUN/Creatinine Ratio Glucose Calcium Total Bilirubin 0.8 Direct Bilirubin 0.2 AST 176 H ALT 170 H Alkaline Phosphatase 79 Total Protein 6.3 L Albumin 2.9 L Acetaminophen 8 L 10/10/19 10/10/19 10/10/19 11:55 11:55 11:55 WBC 9.80 RBC 4.48 L Hgb 14.4 Hct 40.9 L MCV 91.3 MCH 32.1 MCHC 35.2 RDW Std Deviation 44.0 RDW Coeff of Namita 13.3 Plt Count 245 MPV 8.8 PT 13.9 H INR 1.4 H Sodium 139 Potassium 3.5 Chloride 110 H Carbon Dioxide 23 Anion Gap 6.0 BUN 7 D Creatinine 0.76 Est Cr Clr Drug Dosing 84.5 Est GFR ( Amer) 104.9 Est GFR (Non-Af Amer) 90.5 BUN/Creatinine Ratio 9.7 L Glucose 114 H Calcium 8.5 Total Bilirubin 1.2 H Direct Bilirubin 0.4 H D AST 347 H ALT 467 H Alkaline Phosphatase 86 Total Protein 6.6 Albumin 3.1 L Acetaminophen Medications Administered Current Inpatient Medications Potassium Chloride/Sodium Chloride (Normal Saline W/20 Meq Kcl) 20 meq in 1,000 mls @ 80 mls/hr IV .[id number] MAG Stop: 11/08/19 00:44 Last Admin: 10/10/19 06:25 Dose: 125 mls/hr Documented by: Piperacillin Sod/Tazobactam (Sod 3.375 gm/ Dextrose) 115 mls @ 28.75 mls/hr IV Q8H MAG; Protocol Stop: 10/11/19 11:59 Last Admin: 10/10/19 11:04 Dose: 28.8 mls/hr Documented by: Acetylcysteine 6,640 mg/ (Dextrose) 1,033.2 mls @ 62.5 mls/hr IV ONE ONE; Protocol Stop: 10/10/19 16:30 Last Admin: 10/10/19 00:15 Dose: 62.5 mls/hr Documented by: Acetylcysteine 6,640 mg/ (Dextrose) 1,033.2 mls @ 62.5 mls/hr IV 1700 ONE; Protocol Stop: 10/11/19 09:31 Ioversol (Optiray 320 100ml) 100 ml IV ONCE PRN PRN Reason: Interaction Checking Stop: 10/12/19 23:40 Last Admin: 10/08/19 23:42 Dose: 93 ml Documented by: Miscellaneous Information (Consult) 1 ea N/A UD PRN PRN Reason: Consult Stop: 11/07/19 23:04 Potassium Chloride (Klor-Con M20) 20 meq PO BID MAG Stop: 11/08/19 08:59 Last Admin: 10/10/19 07:59 Dose: 20 meq Documented by: PG Care Time/CCT Total # of Minutes Spent Total Time Spent with Patient: Total time spent is greater than 50% in coordination of care (as documented) at patient's floor/unit and/or counseling patient: Coding Level of Care Code 64714 Subseq Hosp Care Lvl 3 Diagnoses Acetaminophen overdose T39.1X2A Encounter type: initial encounter Injury intent: intentional self-harm Suicidal intent R45.851 Schizophrenia F20.0 Schizophrenia type: paranoid schizophrenia Insomnia G47.00 Paranoia F22 (1) Acetaminophen overdose Encounter type: initial encounter Injury intent: intentional self-harm Qualified Code(s): T39.1X2A - Poisoning by 4-Aminophenol derivatives, intentional self-harm, initial encounter (2) Schizophrenia Schizophrenia type: paranoid schizophrenia Qualified Code(s): F20.0 - Paranoid schizophrenia
[2019-10-10] MEDS ORDERED: DEXTROSE 5% IV ONE (17:00)
[2019-10-10] MEDS ORDERED: ACETYLCYSTEINE IV ONE (17:00)
[2019-10-10] MEDS: TEMAZEPAM 15 MG CAPSULE PO PRN (21:07)
[2019-10-11 05:48] LABS: INR 1.2 (0.9-1.1); Prothrombin Time 12.5 Seconds (9.0-12.0)
[2019-10-11] MEDS: NSS + 20MEQ KCL 20 MEQ/1,000 ML BAG IV SCH ×2 (06:15→20:42)
[2019-10-11 06:18] LABS: Albumin Level 2.8 gm/dl (3.4-5.0); Bilirubin Direct 0.3 mg/dl (0-0.2); Bilirubin,Total 1.1 mg/dl (0.2-1); Total Protein 5.9 gm/dl (6.4-8.2)
[2019-10-11] MEDS ORDERED: DEXTROSE 5% IV ONE (11:00)
[2019-10-11] MEDS ORDERED: ACETYLCYSTEINE IV ONE (11:00)
[2019-10-11] MEDS: POTASSIUM CHLORIDE 20 MEQ TABCR PO SCH ×2 (11:33→20:39)
[2019-10-11] MEDS ORDERED: ONDANSETRON INJ 2 MG/ML 2 ML VIAL ONE (14:11)
--- NOTE | 2019-10-11 16:35 | Hospitalist Progress Note ---
Date of Service October 11, 2019 Assessment & Plan (1) Acetaminophen overdose: Jack is a 74-year-old male with a past medical history of schizophrenia on ziprasidone and mirtazapine therapy who presented after being found altered by his roommates in a [facility]pc and was found hypothermic with an elevated lactate on admission. On discussion with the patient he revealed that he attempted to commit suicide by ingesting 100 Tylenol, denies taking it with any other medications, because he found the voices in his right ear telling him to kill himself to be intolerable. intentional overdose, intended to kill himself continue treatment with N-acetylcysteine discussed with poison control every day today 10/11 they recommend another 16 hours of N-acetylcysteine, check labs at 10pm today AST up to 748 and ALT up to 1380 INR is 1.2 and Bili is 1.1 certainly with signs of hepatitis but no liver failure as basic liver function is intact will not be medically stable for discharge to inpatient psych until overdose is completely treated (2) Suicidal intent: patient admits to wanting to kill himself will need to go to inpatient psych once medically stable if he would not agree then will need 302 currently he is agreeable (3) Schizophrenia: holding current home regimen until Tylenol overdose completed will resume antipsychotics once in psychiatry unit (4) Insomnia: psychiatry is okay with Restoril 15mg HS worked fairly well last night (5) Paranoia: very anxious should NOT use benzodiazepines such as lorazepam or alprazolam due to h/o abuse and suicidal behavior he is prescribed this at home but will not give here and should NOT be continued on home medication list Admission and Anticipated Discharge Date Admission Date: October 09, 2019 Anticipated date of discharge: 10/14/19 Subjective patient more pleasant today, calm he is eating better, had a little nausea that improved with Zofran some mild lower abdominal pain, nothing in the RUQ no jaundice no chest pain, no dyspnea he slept better with the Restoril reviewed labs, INR 1.2 bili 1.1 AST up to 748 and ALT up to 1380, alk phos normal at 78 d/w poison control, recommend another 16 hours of Acetylcysteine and repeat labs tonight at 10pm d/w patient that he will be admitted medically until his liver function improves assured him that there were no signs of liver failure, just inflammation Review of Systems Review of Systems: All systems reviewed & are unremarkable except as noted in HPI & below Respiratory: no cough and no dyspnea Cardiovascular: no chest pain Gastrointestinal: + abdominal pain and + nausea; no vomiting, no constipation and no diarrhea/loose stools Physical Exam Constitutional: WD/WN, vitals as above Eyes: PERRL, conjunctivae normal, anicteric sclerae ENMT: external ear and nose normal, oropharynx normal Neck: trachea midline, no thyromegaly Respiratory: normal respiratory effort, lungs clear to auscultation Cardiovascular: RRR, no murmur, no edema Gastrointestinal (Abdomen): normal bowel sounds, soft, nontender, no hepatosplenomegaly Musculoskeletal: no cyanosis or clubbing, extremities motor strength 5/5 Skin: no rashes, warm and dry Neurologic: patellar DTR's 2+ bilat, sensation intact and PERRL, EOMI, accommodation nl, no face palsy, no dysarthria Psychiatric: Orientation: alert and oriented x 3 Affect: + anxious affect Thought Content: + delusions Lymphatic: no cervical or axillary lymphadenopathy Results & Data ([facility]) Vital Signs (Past 12 Hours) Vital Signs Temp Pulse Pulse Resp BP Pulse Ox 10/11/19 16:00 60 10/11/19 15:02 36.7 C 74 16 131/70 95 10/11/19 10:59 37.0 C 80 12 145/77 H 96 10/11/19 08:00 60 10/11/19 07:05 36.8 C 76 18 146/76 H 95 Laboratory Results Laboratory Results - last 24 hr 10/11/19 10/11/19 10/11/19 05:15 05:15 05:15 PT 12.5 H INR 1.2 H Total Bilirubin 1.1 H Direct Bilirubin 0.3 H AST 748 H ALT 1380 H Alkaline Phosphatase 78 Total Protein 5.9 L Albumin 2.8 L Acetaminophen 3 L Medications Administered Current Inpatient Medications Potassium Chloride/Sodium Chloride (Normal Saline W/20 Meq Kcl) 20 meq in 1,000 mls @ 80 mls/hr IV .[id number] MAG Stop: 11/08/19 00:44 Last Admin: 10/11/19 20:42 Dose: 80 mls/hr Documented by: Acetylcysteine 6,640 mg/ (Dextrose) 1,033.2 mls @ 62.5 mls/hr IV 1100 ONE; Protocol Stop: 10/12/19 03:31 Last Admin: 10/11/19 11:01 Dose: 62.5 mls/hr Documented by: Ioversol (Optiray 320 100ml) 100 ml IV ONCE PRN PRN Reason: Interaction Checking Stop: 10/12/19 23:40 Last Admin: 10/08/19 23:42 Dose: 93 ml Documented by: Ondansetron HCl (Zofran) 4 mg IV Q6H PRN PRN Reason: Nausea Stop: 11/10/19 14:09 Last Admin: 10/11/19 20:38 Dose: 4 mg Documented by: Potassium Chloride (Klor-Con M20) 20 meq PO BID MAG Stop: 11/08/19 08:59 Last Admin: 10/11/19 20:39 Dose: 20 meq Documented by: Temazepam (Restoril) 15 mg PO HSZ PRN PRN Reason: Insomnia Stop: 11/09/19 20:17 Last Admin: 10/10/19 21:07 Dose: 15 mg Documented by: PG Care Time/CCT Total # of Minutes Spent Total Time Spent with Patient: Total time spent is greater than 50% in coordina tion of care (as documented) at patient's floor/unit and/or counseling patient: Coding Level of Care Code 67537 Subseq Hosp Care Lvl 2 Diagnoses Acetaminophen overdose T39.1X2A Encounter type: initial encounter Injury intent: intentional self-harm Suicidal intent R45.851 Schizophrenia F20.0 Schizophrenia type: paranoid schizophrenia Insomnia G47.00 Paranoia F22 (1) Schizophrenia Schizophrenia type: paranoid schizophrenia Qualified Code(s): F20.0 - Paranoid schizophrenia (2) Acetaminophen overdose Encounter type: initial encounter Injury intent: intentional self-harm Qualified Code(s): T39.1X2A - Poisoning by 4-Aminophenol derivatives, intentional self-harm, initial encounter
[2019-10-11] MEDS: ONDANSETRON INJ 2 MG/ML 2 ML VIAL IV PRN (20:38)
[2019-10-11 21:58] LABS: INR 1.1 (0.9-1.1); Prothrombin Time 11.5 Seconds (9.0-12.0)
[2019-10-11] MEDS: TEMAZEPAM 15 MG CAPSULE PO PRN (22:02)
[2019-10-11 22:16] LABS: Albumin Level 2.5 gm/dl (3.4-5.0); Bilirubin,Total 0.6 mg/dl (0.2-1); Total Protein 5.9 gm/dl (6.4-8.2)
[2019-10-11 22:27] LABS: Bilirubin Direct 0.1 mg/dl (0-0.2)
[2019-10-12] MEDS: ONDANSETRON INJ 2 MG/ML 2 ML VIAL IV PRN ×2 (07:57→13:58)
[2019-10-12] MEDS: POTASSIUM CHLORIDE 20 MEQ TABCR PO SCH ×2 (07:57→21:09)
[2019-10-12] MEDS: NSS + 20MEQ KCL 20 MEQ/1,000 ML BAG IV SCH ×2 (08:10→21:10)
[2019-10-12 09:05] LABS: Basophils # (auto) 0.02 K/uL (0-0.2); Basophils % (auto) 0.3 %; Eosinophils # (auto) 0.33 K/uL (0-0.5); Eosinophils % (auto) 4.5 %; Hematocrit (blood only) 36.8 % (42-52); Hemoglobin 12.4 g/dL (14.0-18.0); Immature Granulocytes # (auto) 0.02 K/uL (0.00-0.02); Immature Granulocytes % (auto) 0.3 %; Lymphocytes % (auto) 12.4 %; Mean Corpuscular Hemoglobin 31.3 pg (25-34); Mean Corpuscular Hgb Conc 33.7 g/dL (32-36); Mean Corpuscular Volume 92.9 fL (80-100); Mean Platelet Volume 8.7 fL (7.4-10.4); Monocytes # (auto) 0.48 K/uL (0.11-0.59); Monocytes % (auto) 6.6 %; Neutrophils # (auto) 5.52 K/uL (1.4-6.5); Neutrophils % (auto) 75.9 %; Platelet Count 192 K/uL (130-400); RDW Coefficient of Variation 13.1 % (11.5-14.5); RDW Standard Deviation 44.6 fL (36.4-46.3); Red Blood Count 3.96 M/uL (4.7-6.1); White Blood Count 7.27 K/uL (4.8-10.8)
[2019-10-12 09:19] LABS: INR 1.1 (0.9-1.1); Prothrombin Time 10.8 Seconds (9.0-12.0)
[2019-10-12 09:57] LABS: Albumin Level 2.7 gm/dl (3.4-5.0); Bilirubin Direct 0.1 mg/dl (0-0.2); Bilirubin,Total 0.7 mg/dl (0.2-1); Calcium 8.4 mg/dl (8.5-10.1); Creatinine Clr Calc Pharmacy 73.9 ml/min; Est GFR (African American) 100.2; Est GFR (Non-African American) 86.4; Magnesium 1.7 mg/dl (1.8-2.4); Potassium 3.6 mmol/L (3.5-5.1); Total Protein 6.2 gm/dl (6.4-8.2)
[2019-10-12] MEDS ORDERED: MAGNESIUM SULFATE / D5W 1 GM/100 ML BAG IV ONE (11:02)
[2019-10-12] MEDS ORDERED: PROMETHAZINE HCL 12.5 MG in SODIUM CHLORIDE 0.9% 50 ML IV PRN (11:11)
--- NOTE | 2019-10-12 11:14 | Hospitalist Progress Note ---
Date of Service October 12, 2019 Assessment & Plan (1) Acetaminophen overdose: Jack is a 74-year-old male with a past medical history of schizophrenia on ziprasidone and mirtazapine therapy who presented after being found altered by his roommates in a [facility] and was found hypothermic with an elevated lactate on admission. On discussion with the patient he revealed that he attempted to commit suicide by ingesting 100 tablets of Tylenol, denies taking it with any other medications, because he found the voices in his right ear telling him to kill himself to be intolerable. intentional overdose, intended to kill himself Has now completed extended treatment with N-acetylcysteine Previous hospitalist discussed with poison control APAP levels have been low for several days LFTs continue to be trending downward and some of the elevation was likely secondary to rhabdomyolysis as below INR is normal, platelets normal, tolerating p.o., no nausea/vomiting, no abdominal pains -Follow LFTs, INR, CBC in the morning will not be medically stable for discharge to inpatient psych until overdose is completely treated (2) Suicidal intent: patient admits to wanting to kill himself will need to go to inpatient psych once medically stable if he would not agree then will need 302 currently he is agreeable Not medically stable for discharge at this time (3) Schizophrenia: holding current home regimen until Tylenol overdose completed will resume antipsychotics once in psychiatry unit or perhaps tomorrow (4) Insomnia: psychiatry is okay with Restoril 15mg HS -Continue Restoril as needed for insomnia for limited use -Otherwise, avoiding benzodiazepines given a history of abuse of such (5) Paranoia: very anxious should NOT use benzodiazepines such as lorazepam or alprazolam due to h/o abuse and suicidal behavior he is prescribed this at home but will not give here and should NOT be continued on home medication list (6) Hypomagnesemia: Replaced with IV magnesium today -Follow magnesium levels in the morning (7) Rhabdomyolysis: CK is more today than previous at 888 up from 600 previously Some of the AST and ALT elevation was likely secondary to rhabdomyolysis He was found on the ground for an unknown length of time is a likely contributor -Continue IV fluids and watching electrolytes with replacement as necessary -Follow CPK in the morning (8) Nausea: Likely secondary to Tylenol overdose He is tolerating p.o. No bowel movement in several days -Start senna/docusate -Add Phenergan and continue Zofran as needed (9) DVT prophylaxis: Add on Lovenox SQ Disposition-remain on PCU overnight and if LFTs continue to trend towards normal as well as CK tomorrow, could be medically stable for discharge to inpatient psychiatric unit tomorrow Admission and Anticipated Discharge Date Admission Date: October 09, 2019 Anticipated date of discharge: 10/14/19 Subjective Patient has no complaints today. He denies headache or lightheadedness, no chest pain or shortness of breath. No abdominal pain. He is eating but has nausea. Telemetry with normal sinus rhythm with rates in the 70s to 90s Patient continues to complain of nausea and is requesting Zofran frequently as per nursing and to myself. When asked if he has vomited, he replies "no, because I have no food." However, he reports that he ate a full breakfast this morning. I offered him Phenergan and he would like to try this as he is already taking Zofran without relief. Review of Systems Review of Systems: All systems reviewed & are unremarkable except as noted in HPI & below Denies muscle pains or soreness Physical Exam Constitutional: WD/WN, vitals as above Eyes: + anicteric sclerae ENMT: external ear and nose normal, oropharynx normal Neck: trachea midline, no thyromegaly Respiratory: normal respiratory effort, lungs clear to auscultation Cardiovascular: RRR, no murmur, no edema Chest (Breasts): Chest: normal inspection of chest Gastrointestinal (Abdomen): normal bowel sounds, soft, nontender, no hepatosplenomegaly Musculoskeletal: Extremities: extremities normal to inspection; no cyanosis and no clubbing Skin: no rashes, warm and dry Neurologic: moves all extremities and awake; no focal motor deficits Psychiatric: Orientation: alert and oriented x 3 Speech: normal rate/rhythm/volume of speech Affect: + flat affect Lymphatic: no lymphedema Results & Data ([facility]) Vital Signs (Past 12 Hours) Vital Signs Temp Pulse Pulse Resp BP BP Pulse Ox 10/12/19 07:12 36.9 C 90 16 128/60 98 10/12/19 04:30 36.8 C 75 16 122/60 94 10/11/19 23:59 80 10/11/19 23:17 37.5 C 71 20 126/71 96 Laboratory Results 10/12/19 10/12/19 10/12/19 Range/Units 08:48 08:48 08:48 WBC 7.27 (4.8-10.8) K/uL RBC 3.96 L (4.7-6.1) M/uL Hgb 12.4 L (14.0-18.0) g/dL Hct 36.8 L (42-52) % MCV 92.9 (80-100) fL MCH 31.3 (25-34) pg MCHC 33.7 (32-36) g/dL RDW Std Deviation 44.6 (36.4-46.3) fL RDW Coeff of Namita 13.1 (11.5-14.5) % Plt Count 192 (130-400) K/uL MPV 8.7 (7.4-10.4) fL Immature Gran % (Auto) 0.3 % Neut % (Auto) 75.9 % Lymph % (Auto) 12.4 % [place] % (Auto) 6.6 % Eos % (Auto) 4.5 % Baso % (Auto) 0.3 % Immature Gran # (Auto) 0.02 (0.00-0.02) K/uL Neut # (Auto) 5.52 (1.4-6.5) K/uL Lymph # (Auto) 0.90 L (1.2-3.4) K/uL [place] # (Auto) 0.48 (0.11-0.59) K/uL Eos # (Auto) 0.33 (0-0.5) K/uL Baso # (Auto) 0.02 (0-0.2) K/uL PT 10.8 (9.0-12.0) Seconds INR 1.1 (0.9-1.1) Sodium 139 (136-145) mmol/L Potassium 3.6 (3.5-5.1) mmol/L Chloride 107 (98-107) mmol/L Carbon Dioxide 25 (21-32) mmol/L Anion Gap 7.0 (3-11) BUN 8 (7-18) mg/dl Creatinine 0.85 (0.6-1.4) mg/dl Est Cr Clr Drug Dosing 73.9 ml/min Est GFR ( Amer) 100.2 Est GFR (Non-Af Amer) 86.4 BUN/Creatinine Ratio 9.0 L (10-20) Glucose 173 H (70-99) mg/dl Calcium 8.4 L (8.5-10.1) mg/dl Magnesium 1.7 L (1.8-2.4) mg/dl Total Bilirubin 0.7 (0.2-1) mg/dl Direct Bilirubin 0.1 (0-0.2) mg/dl AST 308 H (15-37) U/L ALT 1190 H (12-78) U/L Alkaline Phosphatase 77 (45-117) U/L Total Creatine Kinase 888 H (39-308) U/L Total Protein 6.2 L (6.4-8.2) gm/dl Albumin 2.7 L (3.4-5.0) gm/dl Acetaminophen (10-30) ug/ml 10/11/19 10/11/19 10/11/19 Range/Units 21:42 21:42 21:42 WBC (4.8-10.8) K/uL RBC (4.7-6.1) M/uL Hgb (14.0-18.0) g/dL Hct (42-52) % MCV (80-100) fL MCH (25-34) pg MCHC (32-36) g/dL RDW Std Deviation (36.4-46.3) fL RDW Coeff of Namita (11.5-14.5) % Plt Count (130-400) K/uL MPV (7.4-10.4) fL Immature Gran % (Auto) % Neut % (Auto) % Lymph % (Auto) % [place] % (Auto) % Eos % (Auto) % Baso % (Auto) % Immature Gran # (Auto) (0.00-0.02) K/uL Neut # (Auto) (1.4-6.5) K/uL Lymph # (Auto) (1.2-3.4) K/uL [place] # (Auto) (0.11-0.59) K/uL Eos # (Auto) (0-0.5) K/uL Baso # (Auto) (0-0.2) K/uL PT 11.5 (9.0-12.0) Seconds INR 1.1 (0.9-1.1) Sodium (136-145) mmol/L Potassium (3.5-5.1) mmol/L Chloride (98-107) mmol/L Carbon Dioxide (21-32) mmol/L Anion Gap (3-11) BUN (7-18) mg/dl Creatinine (0.6-1.4) mg/dl Est Cr Clr Drug Dosing ml/min Est GFR ( Amer) Est GFR (Non-Af Amer) BUN/Creatinine Ratio (10-20) Glucose (70-99) mg/dl Calcium (8.5-10.1) mg/dl Magnesium (1.8-2.4) mg/dl Total Bilirubin 0.6 D (0.2-1) mg/dl Direct Bilirubin 0.1 D (0-0.2) mg/dl AST 441 H (15-37) U/L ALT 1334 H (12-78) U/L Alkaline Phosphatase 79 (45-117) U/L Total Creatine Kinase (39-308) U/L Total Protein 5.9 L (6.4-8.2) gm/dl Albumin 2.5 L (3.4-5.0) gm/dl Acetaminophen 4 L (10-30) ug/ml PG Care Time/CCT Total # of Minutes Spent Total Time Spent with Patient: Total time spent is greater than 50% in coordination of care (as documented) at patient's floor/unit and/or counseling patient: Coding Level of Care Code 97687 Subseq Hosp Care Lvl 3 Diagnoses Acetaminophen overdose T39.1X2A Encounter type: initial encounter Injury intent: intentional self-harm Suicidal intent R45.851 Schizophrenia F20.0 Schizophrenia type: paranoid schizophrenia Insomnia G47.00 Paranoia F22 Hypomagnesemia E83.42 Rhabdomyolysis M62.82 Nausea R11.0 DVT prophylaxis Z29.9 (1) Schizophrenia Schizophrenia type: paranoid schizophrenia Qualified Code(s): F20.0 - Paranoid schizophrenia (2) Acetaminophen overdose Encounter type: initial encounter Injury intent: intentional self-harm Qualified Code(s): T39.1X2A - Poisoning by 4-Aminophenol derivatives, intentional self-harm, initial encounter
[2019-10-12] MEDS: DOCUSATE SODIUM/SENNA 50/8.6MG TAB PO SCH (13:47)
[2019-10-12] MEDS: ENOXAPARIN INJ 40 MG/0.4 ML SYR SQ SCH (13:58)
[2019-10-12] MEDS: TEMAZEPAM 15 MG CAPSULE PO PRN (21:08)
[2019-10-13] MEDS: ONDANSETRON INJ 2 MG/ML 2 ML VIAL IV PRN (05:57)
[2019-10-13 06:37] LABS: Prothrombin Time 10.1 Seconds (9.0-12.0)
[2019-10-13 06:57] LABS: Albumin Level 2.6 gm/dl (3.4-5.0); BUN Creatinine Ratio 15.9 (10-20); Bilirubin Direct 0.1 mg/dl (0-0.2); Calcium 8.3 mg/dl (8.5-10.1); Est GFR (African American) 112.6; Est GFR (Non-African American) 97.1; Magnesium 1.9 mg/dl (1.8-2.4); Potassium 3.9 mmol/L (3.5-5.1)
[2019-10-13 07:00] LABS: Bilirubin,Total 0.4 mg/dl (0.2-1); Total Protein 5.9 gm/dl (6.4-8.2)
[2019-10-13] MEDS: NSS + 20MEQ KCL 20 MEQ/1,000 ML BAG IV SCH (09:17)
[2019-10-13] MEDS: ENOXAPARIN INJ 40 MG/0.4 ML SYR SQ SCH (09:18)
[2019-10-13] MEDS: POTASSIUM CHLORIDE 20 MEQ TABCR PO SCH ×2 (09:18→20:59)
[2019-10-13] MEDS: DOCUSATE SODIUM/SENNA 50/8.6MG TAB PO SCH (09:18)
[2019-10-13] MEDS: BENZTROPINE MESYLATE 0.5 MG TAB PO PRN (10:55)
--- NOTE | 2019-10-13 14:00 | Psychiatric Progress Note ---
Date of Service October 13, 2019 Impression / Recommendations Impression Dr. Alison Campos was directly involved in review and discussion of the patient's case and participated in medical decision making regarding treatment recommendations. RECOMMENDATIONS: 10/13 - In order to be considered for inpatient psychiatric treatment, he would need to be off IV fluids and tolerating PO medications for at least 24-hours. Pt should be able to demonstrate ability to ambulate stably to demonstrate ability to ambulate on a psychiatric unit effective. Pt must also be tolerating PO intake. Given ongoing concern for elevated liver enzymes and CK, patient is likely most appropriate for a hospital-based psychiatric facility when medically cleared. - It appears ziprasidone has been restarted for this evening - agree with resuming at a lower dose given concerns for hepatic functioning and the fact the patient has not received the medication in several days - Recommendation remains for inpatient psychiatric treatment at time of medical clearance - patient is verbalizing willingness for treatment at this time Recommendations from initial consult - 10/09 - Pt admits that acetaminophen overdose was done in an attempt to end his life. He states that he remains suicidal as "it is not worth it". Pt has a long mental health history and was most recently admitted on our unit in and 06/2019 for SI with plan to overdose. 302 petitioning statement was completed after psychiatric evaluation - though, patient is not currently protesting recommendation for inpatient psychiatric treatment after medical clearance. [address] [place] should be pursued if patient is threatening to leave the hospital AMA prior to medical clearance. - Recommend resuming ziprasidone 80mg BIDM when medically appropriate (agree with holding acutely due to primary hepatic metabolism and QTc prolongation on admission). Pt reports preference to remain off mirtazapine due to reported "nightmares" - Pt does report he has not slept in 4 days, and has previously responded to temazepam. On a limited basis, and in the supervised hospital setting, it does seem reasonable to utilize 15mg of temazepam on a short-term basis to assist with acute sleep concerns. We are not recommending this medication be continued long-term and are not recommending patient be discharged on the medication due to history of benzodiazepine abuse and recent suicide attempt by overdose - We also do not recommend continuation of alprazolam or initiation of other benzodiazepine to target anxiety - patient has a documented history of benzodiazepine abuse and we have historically attempted to avoid using abusable substances for this patient. Pt did fill #60 tablets of 0.5mg alprazolam on 09/21/2019. We are suggesting this home medication be discontinued on discharge from the medical floor - We appreciate the opportunity to participate in the care of this patient, please reach out to our service with any additional questions or updates (1) Acetaminophen overdose: (2) Schizophrenia: (3) Hypertension: (4) Benzodiazepine abuse: Risk Factors Assessment Do You Have Access To A Gun?: No Interval History Identifying Information 74-year-old male admitted medically on 10/08/2019 after presenting to the ED status post intentional overdose of #100 pills of Tylenol. Psychiatric consultation was completed on 10/09/2019 to evaluate the patient status post suicide attempt. Follow-up visit made today to assess progress since admission. Chief Complaint "I'm fine." Review of Systems Notes Constitutional: denied Cardiovascular: denied Respiratory: denied Gastrointestinal: denied Neurological: denied Psychiatric: denies symptoms other than stated above Total of at least 10 systems reviewed, pertinent positives as above and in HPI. Subjective Subjective Patient's case was reviewed and discussed during morning report with psychiatric nurse liaison and supervising psychiatrist. Reviewed recommendations regarding ambulatory status and ability to tolerate p.o. intake in order for patient to be considered medically cleared for referral to a psychiatric facility. Psychiatric nurse liaison passed these recommendations on to primary medical team. Patient was seen today to assess progress since admission. He appears to be sleeping initially, but is easily aroused with verbal stimuli. He states that he is feeling "fine." He reports feeling as though he is "about the same" since his initial admission. Patient does admit to ongoing auditory hallucinations, stating "they say they are going to kill me. They are going to put a bullet in my head." Despite anxiety and frustration related to the presence of his auditory hallucinations, patient is able to verbalize that he feels safe here in the hospital and denies significant paranoia. He is able to contract for safety here in the hospital setting, and remains agreeable with inpatient psychiatric treatment at time of medical clearance. Patient states that he was able to ambulate the hallways today with no issues. He denies other needs or concerns from our service at this time. Physical Exam Psychiatric Orientation: alert, oriented x 3 and cooperative (Superficially) Apperance: appropriately dressed (Wearing paper scrubs), + disheveled (Mildly unkempt compared to patient's baseline, stubble on face ) and appeared stated age Eye Contact: good eye contact Motor Behavior: no abnormal motor movements (Observed while laying in bed) Speech: normal rate/rhythm/volume of speech (Nonspontaneous, brief responses to questions) Affect: + flat affect Mood: no depressed mood ("Fine") Thought Process: goal directed thought process and + concrete thought process Thought Content: + preoccupation (With auditory hallucinations and "head buzzing") and + hopelessness; no delusions (Does not verbalize any delusional thought content during conversation today) Suicidal Thoughts: + reports suicidal thoughts Homicidal Thoughts: denies homicidal thoughts Hallucinations: + auditory hallucinations (Admits to hearing voices, voices telling patient they are going to kill him); no visual hallucinations Cognition: attention grossly intact and language grossly intact Insight: + impaired insight Judgement: + impaired judgement Vital Signs (Past 24 Hours) Last Vital Signs Temp 36.7 C 10/13/19 11:10 Pulse 69 10/13/19 11:10 Resp 26 H 10/13/19 11:10 BP 134/75 10/13/19 11:10 Pulse Ox 95 10/13/19 11:10 Results & Data ([facility]) Laboratory Results Laboratory Results - last 24 hr 10/13/19 10/13/19 05:23 05:23 PT 10.1 INR 1.0 Sodium 138 Potassium 3.9 Chloride 108 H Carbon Dioxide 26 Anion Gap 4.0 BUN 10 Creatinine 0.64 Est Cr Clr Drug Dosing 99.0 Est GFR ( Amer) 112.6 Est GFR (Non-Af Amer) 97.1 BUN/Creatinine Ratio 15.9 Glucose 86 Calcium 8.3 L Magnesium 1.9 Total Bilirubin 0.4 Direct Bilirubin 0.1 AST 130 H ALT 836 H Alkaline Phosphatase 71 Total Creatine Kinase 458 H Total Protein 5.9 L Albumin 2.6 L Current Inpatient Medications Current Inpatient Medications: Current Inpatient Medications Benztropine Mesylate (Cogentin) 0.5 mg PO DAILY PRN PRN Reason: dystonia Stop: 11/12/19 09:49 Last Admin: 10/13/19 10:55 Dose: 0.5 mg Documented by: Enoxaparin Sodium (Lovenox) 40 mg SQ QAM MAG Stop: 11/11/19 11:59 Last Admin: 10/13/19 09:18 Dose: 40 mg Documented by: Promethazine HCl 12.5 mg/ (Sodium Chloride) 50.5 mls @ 202 mls/hr IV Q6 PRN PRN Reason: nausea Stop: 11/11/19 11:10 Ondansetron HCl (Zofran) 4 mg IV Q6H PRN PRN Reason: Nausea Stop: 11/10/19 14:09 Last Admin: 10/13/19 05:57 Dose: 4 mg Documented by: Potassium Chloride (Klor-Con M20) 20 meq PO BID [facility] Stop: 11/08/19 08:59 Last Admin: 10/13/19 09:18 Dose: 20 meq Documented by: Senna/Docusate Sodium (Senokot S) 1 tab PO QAM [facility] Stop: 11/11/19 11:14 Last Admin: 10/13/19 09:18 Dose: 1 tab Documented by: Temazepam (Restoril) 15 mg PO HSZ PRN PRN Reason: Insomnia Stop: 11/09/19 20:17 Last Admin: 10/12/19 21:08 Dose: 15 mg Documented by: Ziprasidone (Geodon) 80 mg PO BIDM [facility] Stop: 11/12/19 16:59 (1) Schizophrenia Schizophrenia type: paranoid schizophrenia Qualified Code(s): F20.0 - Paranoid schizophrenia (2) Acetaminophen overdose Encounter type: initial encounter Injury intent: intentional self-harm Qualified Code(s): T39.1X2A - Poisoning by 4-Aminophenol derivatives, intentional self-harm, initial encounter (3) Hypertension Hypertension type: essential hypertension Qualified Code(s): I10 - Essential (primary) hypertension
--- NOTE | 2019-10-13 15:02 | Electrocardiogram Report ---
Test Reason : Blood Pressure : / mmHG Vent. Rate : 074 BPM Atrial Rate : 074 BPM P-R Int : 178 ms QRS Dur : 086 ms QT Int : 368 ms P-R-T Axes : 046 025 057 degrees QTc Int : 408 ms Normal sinus rhythm Normal ECG When compared with ECG of 09-OCT-2019 09:26, No significant change was found Confirmed by Zain Irizarry ([id number]) on 10/13/2019 3:02:28 PM Referred By: REFERRED SELF Confirmed By:Yoav Irizarry
[2019-10-13] MEDS ORDERED: ZIPRASIDONE HCL 80 MG CAP PO SCH (17:00)
[2019-10-13] MEDS ORDERED: ZIPRASIDONE HCL 20 MG CAP PO ONE (17:00)
--- NOTE | 2019-10-13 18:36 | Hospitalist Progress Note ---
Date of Service October 13, 2019 Assessment & Plan (1) Acetaminophen overdose: Jack is a 74-year-old male with a past medical history of schizophrenia on ziprasidone and mirtazapine therapy who presented after being found altered by his roommates in a intermediate and was found hypothermic with an elevated lactate on admission. On discussion with the patient he revealed that he attempted to commit suicide by ingesting 100 tablets of Tylenol, denies taking it with any other medications, because he found the voices in his right ear telling him to kill himself to be intolerable. intentional overdose, intended to kill himself Has now completed extended treatment with N-acetylcysteine Previous hospitalist discussed with poison control APAP levels have been low for several days LFTs continue to be trending downward and some of the elevation was likely secondary to rhabdomyolysis as below INR is normal, platelets normal, tolerating p.o., no nausea/vomiting, no abdominal pains -Follow LFTs, INR, again in the morning-need to be closer to normal prior to being medically stable for discharge to inpatient psychiatry will not be medically stable for discharge to inpatient psych until overdose is completely treated (2) Suicidal intent: patient admits to wanting to kill himself will need to go to inpatient psych once medically stable if he would not agree then will need 302 currently he is agreeable Not medically stable for discharge at this time (3) Schizophrenia: Now that Tylenol overdose treatment has completed, QT is no longer prolonged -Okay to restart home Geodon but at half the dose 40 mg twice a day -Restart benztropine as needed -Appreciate psychiatry recommendations (4) Insomnia: psychiatry is okay with Restoril 15mg HS -Continue Restoril as needed for insomnia for limited use-patient adamant about using this every night -Otherwise, avoiding 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 fluids-can discontinue IV fluids and watching electrolytes with replacement as necessary -Follow CPK in the morning (8) Nausea: Likely secondary to Tylenol overdose-now resolved He is tolerating p.o. Still with no bowel movement in several days -Continue senna/docusate and add MiraLAX once daily -Continue antiemetics as needed (9) DVT prophylaxis: Lovenox SQ Disposition-transition off telemetry to medical floor-hopeful that LFTs will continue to improve and he will be stable for discharge to inpatient psychiatric unit in the next 1 to 2 days Admission and Anticipated Discharge Date Admission Date: October 09, 2019 Anticipated date of discharge: 10/14/19 Subjective Patient reports he feels fine. Says his nausea has resolved and he is eating. He is ambulating around the halls. He denies chest pain or shortness of breath, no abdominal pains. No muscle pains. Admits to still hearing auditory hallucinations. I discussed his case with the psychiatric PA today Review of Systems Review of Systems: All systems reviewed & are unremarkable except as noted in HPI & below Physical Exam Constitutional: WD/WN, vitals as above Eyes: + anicteric sclerae Neck: trachea midline, no thyromegaly Respiratory: normal respiratory effort, lungs clear to auscultation Cardiovascular: RRR, no murmur, no edema Chest (Breasts): Chest: normal inspection of chest Gastrointestinal (Abdomen): normal bowel sounds, soft, nontender, no hepatosplenomegaly Musculoskeletal: Extremities: extremities normal to inspection; no cyanosis and no clubbing Skin: no rashes, warm and dry Neurologic: moves all extremities and awake; no focal motor deficits Psychiatric: Orientation: alert and oriented x 3 Speech: normal rate/rhythm/volume of speech Affect: + flat affect Lymphatic: no lymphedema Results & Data ([facility]) Vital Signs (Past 12 Hours) Vital Signs Temp Pulse Pulse Resp BP Pulse Ox 10/13/19 16:35 37.1 C 72 20 159/79 H 96 10/13/19 14:54 36.9 C 70 21 135/67 95 10/13/19 11:10 36.7 C 69 26 H 134/75 95 10/13/19 08:00 60 10/13/19 06:51 36.8 C 72 18 131/73 93 Laboratory Results 10/13/19 10/13/19 Range/Units 05:23 05:23 PT 10.1 (9.0-12.0) Seconds INR 1.0 (0.9-1.1) Sodium 138 (136-145) mmol/L Potassium 3.9 (3.5-5.1) mmol/L Chloride 108 H (98-107) mmol/L Carbon Dioxide 26 (21-32) mmol/L Anion Gap 4.0 (3-11) BUN 10 (7-18) mg/dl Creatinine 0.64 (0.6-1.4) mg/dl Est Cr Clr Drug Dosing 99.0 ml/min Est GFR ( Amer) 112.6 Est GFR (Non-Af Amer) 97.1 BUN/Creatinine Ratio 15.9 (10-20) Glucose 86 (70-99) mg/dl Calcium 8.3 L (8.5-10.1) mg/dl Magnesium 1.9 (1.8-2.4) mg/dl Total Bilirubin 0.4 (0.2-1) mg/dl Direct Bilirubin 0.1 (0-0.2) mg/dl AST 130 H (15-37) U/L ALT 836 H (12-78) U/L Alkaline Phosphatase 71 (45-117) U/L Total Creatine Kinase 458 H (39-308) U/L Total Protein 5.9 L (6.4-8.2) gm/dl Albumin 2.6 L (3.4-5.0) gm/dl PG Care Time/CCT Total # of Minutes Spent Total Time Spent with Patient: Total time spent is greater than 50% in coordination of care (as documented) at patient's floor/unit and/or counseling patient: Coding Level of Care Code 50042 Subseq Hosp Care Lvl 2 Diagnoses Acetaminophen overdose T39.1X2A Encounter type: initial encounter Injury intent: intentional self-harm Suicidal intent R45.851 Schizophrenia F20.0 Schizophrenia type: paranoid schizophrenia Insomnia G47.00 Paranoia F22 Hypomagnesemia E83.42 Rhabdomyolysis M62.82 Nausea R11.0 DVT prophylaxis Z29.9 (1) Schizophrenia Schizophrenia type: paranoid schizophrenia Qualified Code(s): F20.0 - Paranoid schizophrenia (2) Acetaminophen overdose Encounter type: initial encounter Injury intent: intentional self-harm Qualified Code(s): T39.1X2A - Poisoning by 4-Aminophenol derivatives, intentional self-harm, initial encounter
[2019-10-13] MEDS: POLYETHYLENE (MIRALAX) 17 GM PACK PO SCH (18:54)
[2019-10-13] MEDS: DOCUSATE SODIUM 100 MG CAP PO SCH (20:59)
[2019-10-13] MEDS: TEMAZEPAM 15 MG CAPSULE PO PRN (20:59)
[2019-10-13] MEDS ORDERED: ZIPRASIDONE HCL 20 MG CAP PO SCH (21:00)
[2019-10-14] MEDS ORDERED: ZIPRASIDONE HCL 80 MG CAP PO SCH (08:00)
[2019-10-14] MEDS: POTASSIUM CHLORIDE 20 MEQ TABCR PO SCH (08:11)
[2019-10-14] MEDS: DOCUSATE SODIUM/SENNA 50/8.6MG TAB PO SCH (08:11)
[2019-10-14] MEDS: ENOXAPARIN INJ 40 MG/0.4 ML SYR SQ SCH (08:12)
[2019-10-14] MEDS: DOCUSATE SODIUM 100 MG CAP PO SCH (08:12)
[2019-10-14] MEDS: POLYETHYLENE (MIRALAX) 17 GM PACK PO SCH (08:13)
[2019-10-14 08:25] LABS: Blood Urea Nitrogen 13 mg/dl (7-18); Carbon Dioxide 26 mmol/L (21-32); Chloride 108 mmol/L (98-107); Potassium 3.7 mmol/L (3.5-5.1); Sodium 140 mmol/L (136-145)
[2019-10-14 08:26] LABS: Alanine Aminotransferase 631 U/L (12-78); Aspartate Aminotransferase 70 U/L (15-37); Bilirubin Direct < 0.1 mg/dl (0-0.2); Calcium 8.9 mg/dl (8.5-10.1); Creatinine Clr Calc Pharmacy 102.2 ml/min; Est GFR (African American) 114.1; Est GFR (Non-African American) 98.4; Glucose 97 mg/dl (70-99)
[2019-10-14 08:28] LABS: Alkaline Phosphatase 76 U/L (45-117); Bilirubin,Total 0.4 mg/dl (0.2-1); Creatine Kinase 230 U/L (39-308); Total Protein 6.8 gm/dl (6.4-8.2)
[2019-10-14] MEDS ORDERED: MAGNESIUM OXIDE 400 MG TAB PO SCH (09:00)
--- NOTE | 2019-10-14 11:27 | Discharge Summary ---
Date of Service October 14, 2019 Admission HPI Per Admitting Provider Ev Jack is a 74-year-old male with a past medical history of schizophrenia who presented to the emergency department after he was checked on in a half-way when he did not come down for medications and was found with altered mental status in his room. On arrival to the emergency department he was hypothermic with an elevated lactate. On discussion with patient he opened up that he attempted to commit suicide earlier in the evening around 4:00 when he took "100 of regular medicine "in an attempt to kill himself due to voices in his right ear which normally tell him to commit suicide becoming intolerable. On further history he reports that the medication was Tylenol, and he did not take it with any other medications although he takes his ziprasidone, mirtazapine, and clonidine regularly as directed. He reports he currently feels safe in the hospital, but still wants to kill himself because the voices in his ear are intolerable. He feels like he does not have a choice. He denies any homicidal ideation, or desire to harm others. He feels that these voices have been getting worse steadily over the past several years, and are a constant buzzing. He denies visual hallucinations. He does not have any family in the area, and reports that there is no when he would like contacted while he is in the hospital. He reports he lives in a half-way ([facility]) in [place]. He has had past gerda cidal attempts in the past, he said his last was 3 years ago by medication when the voices were intolerable at that time. He is seen Alison campos in the past. He denies other medical problems, and reports he has never had a cardiac arrest. Review of systems otherwise negative. He denies fever, chills, sweats, chest pain, difficulty breathing, abdominal pain. Patient was recently admitted to [facility] and discharged 09/17/2019 after he was admitted voluntarily for inpatient psychiatric treatment on 09/11 due to suicidal ideation. He was experiencing similar command hallucinations at that time. Social history: Denies alcohol, tobacco, substance use. Lives in a half-way as above Medical history: Schizophrenia, hypertension Allergies: No known drug allergies Surgical history: Noncontributory Family history: Denies Principal Diagnosis Suicidal attempt, Acetaminophen overdose Discharge Exam Constitutional WD/WN, vitals as above Eyes + anicteric sclerae Neck trachea midline, no thyromegaly Respiratory normal respiratory effort, lungs clear to auscultation Cardiovascular RRR, no murmur, no edema Chest (Breasts) Chest: normal inspection of chest Gastrointestinal (Abdomen) normal bowel sounds, soft, nontender, no hepatosplenomegaly Musculoskeletal Extremities: extremities normal to inspection; no cyanosis and no clubbing Skin no rashes, warm and dry Neurologic moves all extremities and awake; no focal motor deficits Psychiatric Orientation: alert and oriented x 3 Speech: normal rate/rhythm/volume of speech Affect: + flat affect Lymphatic no lymphedema Discharge Data Allergies Allergy/AdvReac Type Severity Reaction Status Date / Time No Known Allergies Allergy Verified 10/08/19 23:48 Consultations 10/09/19 00:02 ED Decision to Admit Stat 10/09/19 00:43 Consult Psychiatry Routine Ordered Studies 10/08/19 22:02 CT head/brain wo con Stat 10/08/19 23:07 CT abd pelvis IV con only Urgent CXR Hospital Course (1) Acetaminophen overdose: Jack is a 74-year-old male with a past medical history of schizophrenia on ziprasidone and mirtazapine therapy who presented after being found altered by his roommates in a half-way and was found hypothermic with an elevated lactate on admission. On discussion with the patient he revealed that he attempted to commit suicide by ingesting 100 tablets of Tylenol, denies taking it with any other medications, because he found the voices in his right ear telling him to kill himself to be intolerable. intentional overdose, intended to kill himself Has now completed extended treatment with N-acetylcysteine Previous hospitalist discussed with poison control Was treated with IVFs for 2-3 days as well, then dcd APAP levels elevated in 200s on admission and then came down to normal for s everal days LFTs continue to be trending downward and some of the elevation was likely secondary to rhabdomyolysis as below INR is normal, platelets normal, tolerating p.o., no nausea/vomiting, no abd ominal pains -Follow LFTs again in the morning on Inpatient Psych and then q2 days until completely returned to normal (2) Suicidal intent: patient admits to wanting to kill himself will go to inpatient psych today currently he is agreeable He is medically stable for discharge at this time (3) Schizophrenia: Now that Tylenol overdose treatment has completed, QT is no longer prolonged -have since restarted home Geodon -Restarted benztropine as needed -Appreciate psychiatry recommendations (4) Insomnia: psychiatry is okay with Restoril 15mg HS for here--> will defer to if this will be continued upon admission to [facility], however pt has been adamant about taking it every night -Otherwise, avoiding benzodiazepines given a history of abuse of such (5) Paranoia: very anxious should NOT use benzodiazepines such as lorazepam or alprazolam due to h/o abuse and suicidal behavior he is prescribed this at home but will not give here and should NOT be continued on home medication list (6) Hypomagnesemia: Replaced with IV magnesium and resolved (7) Rhabdomyolysis: CK peaked at 888 and now back to normal after IVFs hydration-very mild case Some of the AST and ALT elevation was likely secondary to rhabdomyolysis He was found on the ground for an unknown length of time is a likely contributor (8) Nausea: Likely secondary to Tylenol overdose-now resolved He is tolerating p.o. Still with no bowel movement since 10/08/19 -Continue senna/docusate and added MiraLAX once daily (9) DVT prophylaxis: Lovenox SQ was provided and can be discontinued upon discharge as he will be more ambulatory in [facility] Disposition-dc to [facility] today Total Time Total Time Spent Total Time Spent (In Minutes): 35 min Total Time Includes: Examination of the Patient, Discharge Planning, Medication Reconciliation and Communication With Other Providers (Dr. Campos of Psychiatry) Discharge Plan Discharge Items Patient Disposition: Transfer Behavioral Health Fac Reason For Visit: TYLENOL OVERDOSE, SCHIZOPHRENIA Discharge Diagnosis: Tylenol overdose Suicidal attempt Hepatitis Condition on Discharge: Good Activity: Resume your previous activity Bathing: No limitations Weightbearing: Full weightbearing Non-emergency contact: Primary Care Provider Call non-emergency contact if: you have any medication questions and your symptoms worsen Follow-up/Referrals: Jeff Lopez MD [Primary Care Provider] - Diet: Heart Healthy Addtl Attending Provider Instructions: Please check LFTs on 10/15/19 and continue to repeat q2 days until completely back to normal. Pending Studies at Discharge: No Stand-Alone Forms: My [facility] Skilled Items DNR: No Lines: None Urinary Catheter: No Medications and DC Order Prescriptions: New potassium chloride [Klor-Con M20] 20 mEq Tablet,Er Particles/Crystals 20 meq PO DAILY Qty: 30 RF: 0 polyethylene glycol 3350 [Miralax] 17 gram Powder In Packet 17 g PO DAILY Qty: 30 RF: 0 sennosides-docusate sodium [Senokot-S] 8.6-50 mg Tablet 1 tab PO QAM Qty: 30 RF: 0 Continued ziprasidone HCl 80 mg capsule 80 mg PO BIDM RF: 0 magnesium oxide 400 mg magnesium tablet 400 mg PO DAILY RF: 0 docusate sodium 100 mg Tablet 100 mg PO BID RF: 0 benztropine 0.5 mg Tablet 0.5 mg PO DAILY PRN (Reason: prn) RF: 0 Discontinued clonidine HCl 0.1 mg Tablet 0.1 mg PO HS Qty: 30 RF: 0 mirtazapine 7.5 mg tablet 7.5 mg PO HS 30 Days Qty: 30 RF: 0 melatonin 10 mg tablet 3 - 10 spray PO HS RF: 0 alprazolam 0.5 mg Tablet Extended Release 24 Hr 0.5 mg PO BID RF: 0 Discharge Orders: Discharge Order (Routine); Ordered 10/14/19 Ordered By: Belinda Villagomez Admission Data Admit Date/Time: 10/09/19 02:56 Attending Provider: Belinda Villagomez Admit Provider: Kerwin Vega Primary Care Provider: Jeff Lopez Other Providers: Mahin Chinchilla ; Alison Campos Coding Level of Care Code D/C Day Management >30 mins Diagnoses Acetaminophen overdose T39.1X2A Encounter type: initial encounter Injury intent: intentional self-harm Suicidal intent R45.851 Schizophrenia F20.0 Schizophrenia type: paranoid schizophrenia Insomnia G47.00 Paranoia F22 Hypomagnesemia E83.42 Rhabdomyolysis M62.82 Nausea R11.0 DVT prophylaxis Z29.9
[2019-10-14] MEDS: BENZTROPINE MESYLATE 0.5 MG TAB PO PRN (12:22)
--- NOTE | 2019-10-14 13:04 | Communication Note ---
Date of Service: October 14, 2019 Met with patient, who is well known to me from multiple previous hospitalization. Reviewed presenting symptoms, and current medications. He is requesting continued temazepam and benztropine prn. He continues to experience command AH telling him to end his life, and ziprasidone was resumed 10/13. He reported jaw stiffness and received prn benztropine. Reviewed recommendations for voluntary psychiatric treatment, which he is in agreement with. Reviewed lab results and reviewed with Dr. Villagomez who recommended checking LFTs tomorrow.
== END 2019-10-14 13:19 | DRG 918 ==
LOC: ED 21:42 → SUATTDRO 10-09 02:56 → 2E 10-09 02:56 → 4W 10-13 14:48

== ENCOUNTER 2019-10-14 12:22 | Inpatient (IN) ==
[2019-10-14] MEDS ORDERED: SODIUM CHLORIDE 0.65% NA SOLN 45 ML (OCEAN) PRN (13:40)
[2019-10-14] MEDS ORDERED: BISMUTH SUBSALICYLATE PER ML OMNICELL CHARGE PO PRN (13:40)
[2019-10-14] MEDS ORDERED: MAGNESIUM HYDROXIDE SUSP 30 ML UDC PO PRN (13:40)
[2019-10-14] MEDS ORDERED: ALUMINUM/MAGNESIUM SUSP 30 ML UDC PO PRN (13:40)
--- NOTE | 2019-10-14 14:56 | History & Physical ---
Date of Service October 14, 2019 Impression / Recommendations Impression 74-year-old male admitted voluntarily for inpatient psychiatric treatment on 10/14/2019. Patient had been hospitalized on the medical floor since 10/09/2019 after an intentional Tylenol overdose, and was transferred directly to our unit on the date of admission. Psychiatric consultation was completed during his medical admission, and patient is cooperative with additional psychiatric evaluation today. He maintains that he is continuing to experience auditory hallucinations and "head buzzing", which have been contributing to persistent suicidal ideation. Patient maintains that he wants to , and is actually requesting treatment at [facility]. We will need to complete a hearing, as patient is presently on a 305 outpatient commitment and reportedly needs to be converted to a 306. Patient is denying specific temptations here on the unit to end his life; however, continues to state that he would be unsafe to return home at this time. Patient will be encouraged to participate in group and recreational programming. We will explore discharge options as indicated, but presently he has a bed at the [facility] where he has been residing since 05/2019. We will attempt to coordinate care with his outpatient psychiatric supports, and at this time continue his medication regimen as initiated on the medical floor. Patient is at ongoing acute risk of suicide if he is discharged prematurely, without adequate medication of risk factors. Dr. Alison Campos was directly involved in review and discussion of the patient's case and participated in medical decision making regarding treatment recommendations. (1) Suicidal ideation: 10/14 - Admitted to a locked inpatient behavioral health unit, on q15 minute safety checks - Encourage medication initiation/adjustments as indicated - Encourage participation in group and recreational therapies - Gather collateral information from outpatient providers - Suggest family meeting to involve outpatient supports in safety planning - Arrange appropriate aftercare (2) Schizophrenia: 10/14 - Continue ziprasidone as initiated on the medical floor - resume 80mg BID dosing with meals - Continue benztropine 0.5mg as needed for reports of stiffness, though it remains unclear if this is truly related to his antipsychotic medication - Mirtazapine was discontinued on the medical floor as patient feels it had been ineffective - Continue temazepam 15mg qHS for sleep - at least while hospitalized in a supervised setting, as patient has a history of benzodiazepine abuse - Will coordinate treatment with patient's outpatient psychiatric supports - Encourage participation in group and recreational programming Schizophrenia type: paranoid schizophrenia Qualified Code(s): F20.0 - Paranoid schizophrenia (3) Tylenol overdose: 10/14 - Continue management per medical team - Recheck LFTs tomorrow morning (4) Hypertension: 10/14 - Home medication includes clonidine 0.1mg qHS - Will continue to monitor blood pressure with daily vitals, consider resuming Hypertension type: essential hypertension Qualified Code(s): I10 - Essential (primary) hypertension (5) Benzodiazepine abuse: 10/14 - Historical diagnosis of benzodiazepine abuse - Will not continue home dose of alprazolam - but will offer temazepam 15mg qHS for sleep as it has been effective - Will need to consider the safety of this medication regimen, and may suggest discontinuation of benzodiazepines at discharge given his history - Benzodiazepines are not recommended for the patient if he would be discharged to an unsupervised setting or expected to manage his own medication administration Risk Factors Assessment Male: Yes : Yes Do You Have Access To A Gun?: No Health Problems: No Mental Health Diagnoses: Yes Substance Use Disorders: Yes Previous Attempt: Yes Family History of Suicide: Yes (cousin) Previous Psychiatric Hospitalization: Yes Hopelessness: Yes Protective Factors Assessment Confucianist Beliefs: No : No Responsible for Young Children: No Employed: No Stable Relationships: No Supportive Family: No Good Rapport with Provider: No Psychiatric History Identifying Data TREY ROBERTO is a 74-year-old M who currently lives in [place] at the [facility]. Pt has a history of schizophrenia and this is his fourth psychiatric admission to our unit in roughly the last 7 months, with one admission to [place] in that time as well. Pt was admitted on 10/14/19 12:33 on a 201 voluntary commitment after being treated on the medical floor since 10/09/2019 after an intentional Tylenol overdose. Chief Complaint "I want to ." History of Present Illness Trey "Ramone Roberto is a 74-year-old male admitted voluntarily for inpatient psychiatric treatment on 10/14/2019 after a stay on the medical floor for an i ntentional Tylenol overdose. Pt was admitted medically on 10/09/2019 after he was found to be passed out on the floor of his assisted and admitted to suicide attempt by Tylenol overdose. Pt admits to consuming #100 pills of Tylenol in an attempt to end his life, claiming the "head buzzing" and auditory hallucinations were too overwhelming. He has been admitted for inpatient psychiatric treatment 5 times in roughly the last 7 months, at least 3 of these admission related to suicidality. Pt's acetaminophen level on presentation to the ED was 282 (nml range 10-30). AST and ALT on presentation were 45 (H) and 60 respectively. They continued to increase to a respective maximum of 748 (H) and 1380 (H) during his medical admission. His creatinine kinase reached a maximum of 888 (H) during his medical treatment. LFTs were checked routinely, and consistent reduction in levels was observed by the time of medical clearance and subsequent psychiatric admission. Collateral information was obtained from the patient during psychiatric consultation on the medical floor. Pt had reported: Patient was cooperative with psychiatric evaluation. He provided verbal consent to allow Shereen Muhammad PA-C to observe today's encounter. Patient states that the reason for his suicide attempt was "I cannot get rid of that buzzing sound. It is so annoying, I could not do anything. I had just had enough." Patient admits that he took Tylenol overdose with the intent to end his life, as he could no longer tolerate the buzzing noises. Patient does admit to ongoing auditory hallucinations, which he admits are frustrating as well. Patient states that he had been having intermittent thoughts to overdose on Tylenol for several weeks, stating he went to the store to purchase the Tylenol with the intent to use it to end his life. Patient states he is unsure if the medication was extra strength or standard dose, but states he took "the whole bottle of 100 pills." Surprisingly, patient states he is in good spirits today, and states "I feel good." Patient denies any significant change in his mood, stating "it feels pretty normal." He does admit that he is frustrated as he has not slept in 4 days, continues to hear a "buzzing" sound in his ear, and has been dealing with auditory hallucinations telling him to commit suicide by overdosing. He states that he is not presently hearing the voices, but does admit that he feels his current medication regimen is not effective at calming them consistently. Patient was asked his thoughts regarding his suicide attempt, attempting to gauge if patient was remorseful for attempting to end his life or regretful that the attempt was not successful. Patient's only comments are "well, I know Tylenol is not the way to go. It take s 3 or 4 days to kill you. I could not buy heroin or I would have done that. But that can get you into a lot of trouble." Patient does admit to ongoing suicidal ideation. He was informed that inpatient psychiatric treatment would be recommended once he is medically cleared, he did not argue with this recommendation during time of this evaluation. Patient denied other needs or concerns from our service at this time, and was informed we will continue to round on him during his medical hospitalization. Pt participated in psychiatric assessment today as well. He provides verbal consent to allow Shereen Muhammad PA-C to observe today's encounter. Patient informs this provider "I want to ." He states that he is continued to have these thoughts throughout his medical hospitalization. Patient at this time is actually requesting state hospitalization, stating "can I please go to [facility]?" When asked why patient is making this request, he initially states "because I have been there before." Patient was reminded that generally our first goal of treatment is to safely return in individual to the outpatient setting. He then interjects by stating "I want to , but I do not want to kill myself. I need somewhere safe. [place] is safe." Patient continues to state that his Tylenol overdose was an attempt to end his life. He states "the noise and the voices were so loud. I needed it to stop." Patient states that he has been hearing "buzzing" in his head for "decades." He does not believe that it is correlated to any specific injuries, medication adjustments, or other medical concerns. Patient, at this time, is verbalizing depressed mood which is not usual for him. While he continues to verbalize suicidal ideation, he does deny temptations to harm himself here in the inpatient psychiatric setting. He admits to ongoing auditory hallucinations, stating that the voices are telling him "they are going to kill me." Patient was agreeable with resuming medications from his medical hospitalization at this time. Patient denies other needs or concerns at this time. Past Psychiatric History Current Psychiatric Diagnosis: Schizophrenia Outpatient Services: Psychiatrist - Dr. Alves - [facility] - Colin Guadalupe Previous Psych Admissions: [facility]: 09/2016, 02/2019 - 05/2019; 06/2019 and 08/2019 [facility] [place]: 05/2019 [facility] - 04/2018 Several other inpatient psychiatric admissions - [facility], and a state hospitalization at [place] (2013) Do You Have Access To A Gun?: No History of Previous Suicide Attempt: Yes Describe Attempts in the Past: Two ODs, one between 2017-, and one just prior to admission (09/2019) Past Medication Trials: Per previous documentation - 09/2016 admission: 1. Zyprexa 2. Risperdal 3. Abilify 4. Haldol - dystonia 5. Amitriptyline 6. Imipramine 7. Ambien 8. Thorazine - NMS 9. Temazepam 10.Cymbalta - GI symptoms 11.Navane 12.Loxitane 13.Invega 14.Latuda 15.Ativan 16.Xanax 17.Seroquel Past Head Trauma/Neuro History History of Concussion/Seizure: No Allergies Allergy/AdvReac Type Severity Reaction Status Date / Time No Known Allergies Allergy Verified 10/08/19 23:48 Home Medications Home Medications Medication Instructions Recorded Confirmed Type ziprasidone HCl 80 mg PO BIDM 07/07/19 10/08/19 History benztropine 0.5 mg PO DAILY PRN 10/08/19 10/08/19 History docusate sodium 100 mg PO BID 10/08/19 10/08/19 History alprazolam [Xanax] 10/14/19 History clonidine HCl 10/14/19 History melatonin mg 10/14/19 History mirtazapine [Remeron] mg 10/14/19 History Family History Family History of: Alcoholism/Drug Abuse (Father) and Suicide Completion (Cousin) Family Mental Health History Comment: Per 09/2016 admission: cousin with schizophrenia who committed suicide. Mother with schizophrenia. Alcohol History Hx of Alcohol Use Over the Past 12 Months: No Pt denies alcohol consumption. Smoking Use Have You Smoked or Used Tobacco Products in the Last 30 Days: No tobacco type: cigarettes Smoking Status: Current some day smoker Smoking packs per day: 0.25 Substance History Hx of Prescription Med Misuse Over the Past 12 Months: No Hx of Over the Counter Med Misuse Over the Past 12 Months: No Hx of Inhalent Misuse Over the Past 12 Months: No Hx of Organic Substance Use Over the Past 12 Months: No Hx of Illegal Substances/Street Drug Use Over Past 12 Months: No Problems as a Result of Past Substance Use: None Identified Pt had recently been prescribed alprazolam by his outpatient psychiatrist. Pt denies misuse of the medication. He denies any other illicit substance use. 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[employer]) Marital Status: Single Beliefs That Will Affect Care: None Current Legal Problems: No Hx Legal Problems: No Hx Traumatic Life Events: No Patient History Medical History Benzodiazepine abuse Closed head injury Fall Hypertension Hypokalemia Leukocytosis (08/14/13) Rhabdomyolysis (07/21/13) Scalp laceration Schizophrenia (Chronic) Tobacco use disorder Surgical History No pertinent past surgical history Family History Other No pertinent family history Social History Preferred Language: Pashto Communication Ability: Effective Cell Stripper Final Required: No Beliefs That Will Affect Care: None Current Living Situation: Alone Feels Safe at Home: Yes Smoking Status: Current some day smoker Tobacco Type: cigarettes ; Hx Alcohol Use: No Hx Substance Use: No Review of Systems Review of Systems: Constitutional: denied Cardiovascular: denied Respiratory: denied Gastrointestinal: reports nausea Neurological: denied Psychiatric: denies symptoms other than stated above Total of at least 10 systems reviewed, pertinent positives as above and in HPI. Physical Exam Psychiatric: Orientation: alert, oriented x 3 and cooperative Apperance: appropriately dressed and + disheveled (appearing more unkempt than is usual ) male of healthy-appearing weight, appearing severely depressed but in no acute distress. Patient is appropriately dressed in longsleeve T-shirt and scrub pants. While level of hygiene is adequate, patient appears more disheveled than is usual for him. Eye Contact: good eye contact Motor Behavior: no abnormal motor movements (Observed while laying in bed) Speech: normal rate/rhythm/volume of speech (Monotone, brief responses to questions) Affect: + depressed affect (Severely depressed affect) and mood congruent with affect Mood: + depressed mood ("Not good.") Thought Process: goal directed thought process and + concrete thought process Thought Content: + preoccupation (With head buzzing and the presence of auditory hallucinations) Suicidal Thoughts: denies suicidal intent (does admit he does not want to kill himself, but "I need somewhere safe"); + reports suicidal thoughts ("I want to ") and + reports suicidal plan ("Heroin") Homicidal Thoughts: denies homicidal thoughts Hallu cinations: + auditory hallucinations (Patient continues to report voices telling him to kill himself); no visual hallucinations Cognition: attention grossly intact and language grossly intact Insight: + impaired insight Judgement: + impaired judgement Vital Signs (Past 24 Hours): Last Vital Signs Temp 36.6 C 10/14/19 13:43 Pulse 80 10/14/19 13:43 Resp 16 10/14/19 13:43 BP 168/76 H 10/14/19 13:43 Exam Statement: A physical exam was performed on the medical floor prior to admission to the unit by Dr. Belinda Villagomez MD. I accept that physical as correct/medical clearance for the inpatient physical exam. Results & Data ([facility]) Current Inpatient Medications Current Inpatient Medications: Current Inpatient Medications Al Hydrox/Mg Hydrox/Simethicone (Maalox) 30 ml PO Q4H PRN PRN Reason: GI Upset Stop: 11/13/19 13:39 Benztropine Mesylate (Cogentin) 0.5 mg PO Q6H PRN PRN Reason: dystonia Stop: 11/13/19 13:57 Bismuth Subsalicylate (Kaopectate) 15 ml PO PRN PRN PRN Reason: Loose Stool Stop: 11/13/19 13:39 Docusate Sodium (Colace) 100 mg PO BID MAG Stop: 11/13/19 20:59 Hydroxyzine HCl (Vistaril) 50 mg PO HSZ PRN PRN Reason: Insomnia Stop: 11/13/19 13:39 Hydroxyzine HCl (Vistaril) 25 mg PO Q4H PRN PRN Reason: Anxiety Stop: 11/13/19 13:39 Magnesium Hydroxide (Milk Of Magnesia) 30 ml PO DAILY PRN PRN Reason: Constipation Stop: 11/13/19 13:39 Magnesium Oxide (Mag-Ox) 400 mg PO DAILY MAG Stop: 11/14/19 08:59 Polyethylene Glycol (Miralax Powder Packet) 17 gm PO DAILY MAG Stop: 11/14/19 08:59 Potassium Chloride (Klor-Con M20) 20 meq PO DAILY MAG Stop: 11/14/19 08:59 Senna/Docusate Sodium (Senokot S) 1 tab PO QAM MAG Stop: 11/14/19 08:59 Sodium Chloride ([place] Nasal) 1 - 2 sprays NA PRN PRN PRN Reason: Nasal Dryness/Congestion Stop: 11/13/19 13:39 Ziprasidone (Geodon) 80 mg PO BIDM MAG Stop: 11/13/19 17:44
[2019-10-14] MEDS: ziprasidone HCL 80 MG CAP PO SCH (16:34)
[2019-10-14] MEDS: BENZTROPINE MESYLATE 0.5 MG TAB PO PRN (19:33)
[2019-10-14] MEDS: DOCUSATE SODIUM 100 MG CAP PO SCH (20:48)
[2019-10-14] MEDS: TEMAZEPAM 15 MG CAPSULE PO PRN (20:51)
--- NOTE | 2019-10-15 08:21 | Psychiatric Progress Note ---
Date of Service October 15, 2019 Impression / Recommendations Impression 74-year-old male with chronic schizophrenia who presented 10/08/2019 after he was [facility]responsive at the [facility] and admitted to taking a Tylenol overdose in an attempt to end his life. Admitted to the hospitalist service for 6 days, and transferred voluntarily to our unit yesterday. He was on an involuntary 305 outpatient commitment, so we will schedule a conversion hearing for tomorrow. He sustained hepatic damage with significant elevations in AST and ALT, and we are continuing to follow those for resolution. All of his medications were held on the medical service, but Geodon was restarted 3 days ago. Mirtazapine and Xanax were discontinued as he reported they were ineffective. He was also started on temazepam while on the hospitalist service. He continues to experience auditory hallucinations and "head buzzing", which have been contributing to persistent suicidal ideation. Patient maintains that he wants to , and is actually requesting treatment at [facility]. Patient is denying intent to harm himself here on the unit to end his life, but continues to state that he does not feel safe leaving the hospital. Patient will be encouraged to participate in group and recreational programming. Inpatient treatment remains medically necessary due to the high risk of suicide. (1) Schizophrenia: 10/14 - Continue ziprasidone as initiated on the medical floor - resume 80mg BID dosing with meals - Continue benztropine 0.5mg as needed for reports of stiffness, though it remains unclear if this is truly related to his antipsychotic medication - Mirtazapine was discontinued on the medical floor as patient feels it had been ineffective - Continue temazepam 15mg qHS for sleep - at least while hospitalized in a supervised setting, as patient has a history of benzodiazepine abuse - Will coordinate treatment with patient's outpatient psychiatric supports - Encourage participation in group and recreational programming 10/15 -Continue ziprasidone; reviewed fasting lipid profile and fasting glucose from 02/2019, all values were within normal limits. -Discussed trial of clozapine; patient states that he believes he was on this medication in the past and that it was ineffective. Continue to provide education and encourage retrial, as he has had limited response to multiple other antipsychotics, and it would also help address suicidal thoughts in addition to psychosis. -Involve outpatient case packer and coordinate with psychiatrist, Dr. Alves. (2) Tylenol overdose: 10/14 - Continue management per medical team - Recheck LFTs tomorrow morning. Today, AST 70, ALT 631. 10/15 -Continue to trend down. AST 54, ALT 538. We will reorder LFTs for Saturday. Avoid hepatotoxic agents. (3) Hypertension: 10/14 - Home medication includes clonidine 0.1mg qHS - Will continue to monitor blood pressure with daily vitals, consider res uming (4) Benzodiazepine abuse: 10/14 - Historical diagnosis of benzodiazepine abuse - Will not continue home dose of alprazolam - but will offer temazepam 15mg qHS for sleep as it has been effective - Will need to consider the safety of this medication regimen, and may suggest discontinuation of benzodiazepines at discharge given his history - Benzodiazepines are not recommended for the patient if he would be discharged to an unsupervised setting or expected to manage his own medication administration (5) Auditory hallucinations: Risk Factors Assessment Male: Yes : Yes Do You Have Access To A Gun?: No Health Problems: No Mental Health Diagnoses: Yes Substance Use Disorders: Yes Previous Attempt: Yes Family History of Suicide: Yes (cousin) Previous Psychiatric Hospitalization: Yes Hopelessness: Yes Protective Factors Assessment Protestant Beliefs: No : No Responsible for Young Children: No Employed: No Stable Relationships: No Supportive Family: No Good Rapport with Provider: No Interval History Identifying Information SCOTT ROBERTO is a 74-year-old M who currently lives in [place] at the [facility]. Pt has a history of schizophrenia and this is his fourth psychiatric admission to our unit in roughly the last 7 months, with one admission to [facility] in that time as well. Pt was admitted on 10/14/19 12:33 on a 201 voluntary commitment after being treated on the medical floor since 10/09/2019 after an intentional Tylenol overdose. Chief Complaint "I'm traumatized, the voices and this noise in my ears". Review of Systems Sleep Information Total Hours of Sleep: 5 Sleep Comments: requested and received cereal and walked around the unit. Meal Information Percent Meal Consumed - Dinner: 100 Subjective Subjective Patient was seen & assessed and interval progress reviewed with nursing and social work. Staff report he reports severe depression and a wish to , said he cannot go on living like this as cannot tolerate the auditory hallucinations of voices and tinnitus, and [facility] as he feels safe there. On my assessment, he reports the AH of voices are ongoing, "last night they told me they were going to kill me, and I agreed." He continues to endorse suicidal ideation and does not feel safe outside the hospital. He thinks temazepam helps, but doesn't think any other medication has helped. Sleep and appetite are "good," but eating "a little less than normal." Discussed medications and he says he took clozapine for about 6 months a couple of years ago, started at [facility] and continued it afterwards, and says it "did nothing." He says Raul has "done nothing," and denies being on higher doses. He also says Xanax prescribed by his OP psychiatrist was ineffective, and mirtazapine was "terrible, hallucinogenic." In addition to his AH, he identifies other stressors as "a [facility] of distress at the [facility], they said they prepared vegetarian meals, but they didn't." States he had cereal for breakfast and a peanut butter sandwich for lunch, "it wasn't what they said." States he got along with other people there "okay," and had his own room. Describes his typical day as attending psych rehab, going to the library, "stuff like that" where he watches YouTube videos. Physical Exam Psychiatric Orientation: alert and cooperative Apperance: appropriately dressed (baggy, ill-fitting clothes, multiple layers), appropriately groomed and appeared stated age Eye Contact: + fair eye contact Motor Behavior: steady gait and station and no abnormal motor movements AIMS 0 minimal speech, nonspontaneous, normal rate, volume and tone Affect: + depressed affect and + constricted affect Mood: + depressed mood Thought Process: goal directed thought process Thought Content: + persecution and + hopelessness Suicidal Thoughts: + reports suicidal thoughts Homicidal Thoughts: denies homicidal thoughts Hallucinations: + auditory hallucinations Insight: + impaired insight Judgement: + impaired judgement Vital Signs (Past 24 Hours) Last Vital Signs Temp 36.7 C 10/15/19 06:54 Pulse 75 10/15/19 06:56 Resp 18 10/15/19 06:54 BP 141/74 H 10/15/19 06:56 Results & Data (U) Current Inpatient Medications Current Inpatient Medications: Current Inpatient Medications Al Hydrox/Mg Hydrox/Simethicone (Maalox) 30 ml PO Q4H PRN PRN Reason: GI Upset Stop: 11/13/19 13:39 Benztropine Mesylate (Cogentin) 0.5 mg PO Q6H PRN PRN Reason: dystonia Stop: 11/13/19 13:57 Last Admin: 10/14/19 19:33 Dose: 0.5 mg Documented by: Bismuth Subsalicylate (Kaopectate) 15 ml PO PRN PRN PRN Reason: Loose Stool Stop: 11/13/19 13:39 Docusate Sodium (Colace) 100 mg PO BID MAG Stop: 11/13/19 20:59 Last Admin: 10/14/19 20:48 Dose: 100 mg Documented by: Hydroxyzine HCl (Vistaril) 50 mg PO HSZ PRN PRN Reason: Insomnia Stop: 11/13/19 13:39 Hydroxyzine HCl (Vistaril) 25 mg PO Q4H PRN PRN Reason: Anxiety Stop: 11/13/19 13:39 Magnesium Hydroxide (Milk Of Magnesia) 30 ml PO DAILY PRN PRN Reason: Constipation Stop: 11/13/19 13:39 Magnesium Oxide (Mag-Ox) 400 mg PO DAILY MAG Stop: 11/14/19 08:59 Polyethylene Glycol (Miralax Powder Packet) 17 gm PO DAILY MAG Stop: 11/14/19 08:59 Potassium Chloride (Klor-Con M20) 20 meq PO DAILY MAG Stop: 11/14/19 08:59 Senna/Docusate Sodium (Senokot S) 1 tab PO QAM MAG Stop: 11/14/19 08:59 Sodium Chloride ([place] Nasal) 1 - 2 sprays NA PRN PRN PRN Reason: Nasal Dryness/Congestion Stop: 11/13/19 13:39 Temazepam (Restoril) 15 mg PO HSZ PRN PRN Reason: Insomnia Stop: 11/13/19 16:52 Last Admin: 10/14/19 20:51 Dose: 15 mg Documented by: Ziprasidone (Geodon) 80 mg PO BIDM MAG Stop: 11/13/19 17:44 Last Admin: 10/14/19 16:34 Dose: 80 mg Documented by: Mental Health & Subst Abuse Tx Therapist Name of Therapist: none Silver Solution Mixer Name of Silver Solution Mixer: Rae @ [facility] Post Discharge Appointments Primary Care Physician Name Of Family Doctor: Dr. Jeff Lopez (1) Schizophrenia Schizophrenia type: paranoid schizophrenia Qualified Code(s): F20.0 - Paranoid schizophrenia (2) Hypertension Hypertension type: essential hypertension Qualified Code(s): I10 - Essential (primary) hypertension
[2019-10-15] MEDS: DOCUSATE SODIUM 100 MG CAP PO SCH ×2 (08:31→20:36)
[2019-10-15] MEDS: DOCUSATE SODIUM/SENNA 50/8.6MG TAB PO SCH (08:31)
[2019-10-15] MEDS: POLYETHYLENE (MIRALAX) 17 GM PACK PO SCH (08:31)
[2019-10-15] MEDS: ziprasidone HCL 80 MG CAP PO SCH ×2 (08:31→17:44)
[2019-10-15] MEDS: MAGNESIUM OXIDE 400 MG TAB PO SCH (08:31)
[2019-10-15] MEDS: POTASSIUM CHLORIDE 20 MEQ TABCR PO SCH (08:32)
[2019-10-15] MEDS: BENZTROPINE MESYLATE 0.5 MG TAB PO PRN (08:38)
[2019-10-15 09:56] LABS: Alanine Aminotransferase 538 U/L (12-78); Albumin Level 3.6 gm/dl (3.4-5.0); Alkaline Phosphatase 90 U/L (45-117); Aspartate Aminotransferase 54 U/L (15-37); Bilirubin Direct < 0.1 mg/dl (0-0.2); Bilirubin,Total 0.6 mg/dl (0.2-1); Total Protein 7.7 gm/dl (6.4-8.2)
[2019-10-15] MEDS: TEMAZEPAM 15 MG CAPSULE PO PRN (21:26)
[2019-10-16] MEDS: DOCUSATE SODIUM 100 MG CAP PO SCH ×2 (09:14→21:04)
[2019-10-16] MEDS: MAGNESIUM OXIDE 400 MG TAB PO SCH (09:15)
[2019-10-16] MEDS: POTASSIUM CHLORIDE 20 MEQ TABCR PO SCH (09:15)
[2019-10-16] MEDS: ziprasidone HCL 80 MG CAP PO SCH ×2 (09:15→17:02)
[2019-10-16] MEDS: DOCUSATE SODIUM/SENNA 50/8.6MG TAB PO SCH (09:16)
[2019-10-16] MEDS: POLYETHYLENE (MIRALAX) 17 GM PACK PO SCH (09:16)
[2019-10-16] MEDS: BENZTROPINE MESYLATE 0.5 MG TAB PO PRN ×2 (12:44→19:07)
--- NOTE | 2019-10-16 13:52 | Psychiatric Progress Note ---
Date of Service October 16, 2019 Impression / Recommendations Impression 74-year-old male with chronic schizophrenia who presented 10/08/2019 after he was found unresponsive at the [facility] and admitted to taking a Tylenol overdose in an attempt to end his life. Admitted to the hospitalist service for 6 days, and transferred voluntarily to our unit on 10/14/19. He was on an involuntary 305 outpatient commitment, so we will schedule a conversion hearing for tomorrow. He sustained hepatic damage with significant elevations in AST and ALT, and we are continuing to follow those for resolution. All of his medications were held on the medical service, but Geodon was restarted 3 days ago. Mirtazapine and Xanax were discontinued as he reported they were ineffective. He was also started on temazepam while on the hospitalist service. He continues to experience auditory hallucinations and "head buzzing", which have been contributing to persistent suicidal ideation. Patient maintains that he wants to , and is actually requesting treatment at [facility]. Patient is denying intent to harm himself here on the unit to end his life, but continues to state that he does not feel safe leaving the hospital. Patient will be encouraged to participate in group and recreational programming. Inpatient treatment remains medically necessary due to the high risk of suicide. (1) Schizophrenia: 10/14 - Continue ziprasidone as initiated on the medical floor - resume 80mg BID dosing with meals - Continue benztropine 0.5mg as needed for reports of stiffness, though it remains unclear if this is truly related to his antipsychotic medication - Mirtazapine was discontinued on the medical floor as patient feels it had been ineffective - Continue temazepam 15mg qHS for sleep - at least while hospitalized in a supervised setting, as patient has a history of benzodiazepine abuse - Will coordinate treatment with patient's outpatient psychiatric supports - Encourage participation in group and recreational programming 10/15 -Continue ziprasidone; reviewed fasting lipid profile and fasting glucose from 02/2019, all values were within normal limits. -Discussed trial of clozapine; patient states that he believes he was on this medication in the past and that it was ineffective. Continue to provide education and encourage retrial, as he has had limited response to multiple other antipsychotics, and it would also help address suicidal thoughts in addition to psychosis. -Involve outpatient child welfare caseworker and coordinate with psychiatrist, Dr. Alves. 10/16 -The plan is to continue ziprasidone 80 mg twice a day. We discussed other treatment options with the patient, and he says that he is not interested in trying the various options suggested. He tends to respond in the affirmative every time he is asked whether he has ever taken a number of specific medications, and replies in each instance "it did not help." He does say, somewhat convincingly, that he took clozapine (dose unspecified and unknown by the patient) a number of years ago for "a month or 2," and that it did not help. Re-challenging the patient with clozapine may be helpful, but at present the patient indicates that he will refuse to take it. -The patient hesitates when asked about loxapine and perphenazine, but then says that he has taken both. Loxapine is not on the hospital formulary. Today, the patient says that he is not interested in trying either of these medications "again." -Today, the patient tells us that he "really does not" want to go to the [facility] although he had previously said that he might be interested in doing that. He adds that he does feel safer in a hospital, but feels that he would like to work towards being able to be discharged back to the community at this point. (2) Tylenol overdose: 10/14 - Continue management per medical team - Recheck LFTs tomorrow morning. Today, AST 70, ALT 631. 10/15 -Continue to trend down. AST 54, ALT 538. We will reorder LFTs for Saturday. Avoid hepatotoxic agents. 10/16 -Patient reports that he remains suicidal and confirms that his overdose of Tylenol was taken with the intent of causing his own . (3) Hypertension: 10/14 - Home medication includes clonidine 0.1mg qHS - Will continue to monitor blood pressure with daily vitals, consider resu lucas (4) Benzodiazepine abuse: 10/14 - Historical diagnosis of benzodiazepine abuse - Will not continue home dose of alprazolam - but will offer temazepam 15mg qHS for sleep as it has been effective - Will need to consider the safety of this medication regimen, and may suggest discontinuation of benzodiazepines at discharge given his history - Benzodiazepines are not recommended for the patient if he would be discharged to an unsupervised setting or expected to manage his own medication administration 10/16 -The patient is history of benzodiazepine abuse is noted. That history not withstanding, at seems apparent that the only hypnotic medication that has been consistently effective for this patient has been temazepam, and there is no evidence that he has been misusing this medication in the community prior to admission. -The material risks of temazepam, including but not limited to, risk of a physical habituation, risk of complicated and possibly fatal withdrawal symptoms, risk of accidents, falls and other injuries, as well as risk of worsening depression and clouded consciousness/cognitive impairment were reviewed with the patient, and he responded by saying, "I know. But it is the only thing that works. I really need to sleep, and without it the voices keep me awake all night." (5) Auditory hallucinations: 10/16 -Patient's chief complaint has to do with persistent persecutory auditory hallucinations. He describes the voices as being "electronically generated," and although he tells us that he does not know the source of the electronically generated voices, he says that he has no doubt that they are real and are coming from some entity that is trying to torture and/or kill him. His explanation for the suicide attempt was not that he has been depressed, but, instead, because he feels tortured by the voices and finds that he can no longer tolerate hearing them and no longer tolerate feeling terrorized by them. Patient also explains that he would rather at his own hand than risk being murdered by unknown forces and unknown means. -The patient's condition has been largely treatment resistant to psychiatric medications. With each antipsychotic medication mentioned, the patient's response has been to assert that the specific medicine mentioned has been tried and was not effective, or has been tried and caused worsening symptoms. Today, he asserts that he has taken clozapine in the past, but that it was not effective. He has unable to identify the dose, and does not recall when or where it was prescribed, but says that he believes that he took it for "a month or 2" before it was discontinued as ineffective. Other options for the patient might be a trial of perphenazine or loxapine. For now, the patient has indicated that he would prefer to remain on Geodon 80 mg twice a day. Present on Admission?: Yes Risk Factors Assessment Male: Yes : Yes Do You Have Access To A Gun?: No Health Problems: No Mental Health Diagnoses: Yes Substance Use Disorders: Yes Previous Attempt: Yes Family History of Suicide: Yes (cousin) Previous Psychiatric Hospitalization: Yes Hopelessness: Yes Protective Factors Assessment Episcopal Beliefs: No : No Responsible for Young Children: No Employed: No Stable Relationships: No Supportive Family: No Good Rapport with Provider: No Interval History Identifying Information SCOTT ROBERTO is a 74-year-old M who currently lives in [place] at the [facility]. Pt has a history of schizophrenia and this is his fourth psychiatric admission to our unit in roughly the last 7 months, with one admission to [facility] in that time as well. Pt was admitted on 10/14/19 12:33 on a 201 voluntary commitment after being treated on the medical floor since 10/09/2019 after an intentional Tylenol overdose. Chief Complaint "I can't take the voices anymore". Review of Systems Sleep Information Total Hours of Sleep: 7 Sleep Comments: requested and received cereal and walked around the unit. Meal Information Percent Meal Consumed - Breakfast: 100 Percent Meal Consumed - Lunch: 100 Percent Meal Consumed - Dinner: 100 Subjective Subjective Patient was seen & assessed and interval progress reviewed with treatment team. I met individually with the patient in order to assess his current mental status, evaluate his response to treatment, prepare for his 306 Committment hearing, coordinate any necessary adjustments in his treatment plan with the patient, and address issues, questions and concerns that may arise. The patient begins by acknowledging that he took a deliberate overdose of approximately 100 Tylenol pills prior to admission as part of the deliberate effort to kill himself. He acknowledges that he is continuing to feel suicidal, but explains that he can contract for safety in the hospital and agrees that he will let us know if this changes. He said that he wants to be in the hospital because he feels safer here, within the context of his persistently hearing "voices" that are telling him that people are trying to kill him. He reports that he does not feel depressed but, instead, is suicidal because he can no longer tolerate persistent, persecutory auditory hallucinations that he refers to as "voices." He tells me that he believes that the voices are generated electronically, but he does not know the ultimate source of the electronic generation, but says that he has no doubts that they are real and that he is in mortal danger. He was reminded that this is happened a number of times during his hospitalizations and that he has not come to any actual harm. He explains that that is 1 of the reasons why he wants to be in the hospital; i.e., there is something about being at the hospital that keeps him safealthough he also says that he believes that an assassin could easily into the unit under the guise of "a visitor" or "dressed as a refuge worker or something." We discussed various treatments. He says that none of the medications that he has had over the years have been effective. When we went through his medication history, he reports an inability to tolerate or an absence of response to every medication that was mentioned. Today, he tells us that he took clozapine in the past. Although he cannot recall the dosage, he says that he believes he took it for "a month or 2," and that it "did not do any good." Currently, he is taking Geodon 80 mg twice a day, but he says that this has not been effective in reducing or eliminating his troubling auditory hallucinations. He does say, however, that he has had a favorable response to temazepam and concurs that he is now sleeping "pretty good." Physical Exam Psychiatric Orientation: alert, oriented x 3 and cooperative Apperance: appropriately dressed, appropriately groomed and appeared stated age Eye Contact: + fair eye contact Motor Behavior: + psychomotor retardation The patient's speech is sparse, somewhat soft, and only rarely spontaneous. However, he does attempt to respond fully to questions. Affect: + depressed affect The patient insists that he is not depressed, but his eyes appear to have tears in them at times during the interview. "Frightened. Tired of the voices." Thought Process: + concrete thought process Thought Content: + delusions (Patient reports that he believes that the auditory hallucinations are electronically generated and represent a genuine threat to his life and safety.) and + persecution Suicidal Thoughts: + reports suicidal thoughts The patient reports that he is continuing to have suicidal thoughts and believes that he would act on these thoughts where he to be released from the hospital at this time. Homicidal Thoughts: denies homicidal thoughts Hallucinations: + auditory hallucinations; no visual hallucinations, no tactile hallucinations and no gustatory hallucinations Cognition: recent memory grossly intact and remote memory grossly intact Estimated Intelligence: + above average estimated intelligence Insight: + poor insight The patient does recognize his need for treatment and agrees to cooperate with the unit treatment providers. He does not, however, believe that his presenting symptoms are a function of a mental illness. Judgement: + poor judgement Vital Signs (Past 24 Hours) Last Vital Signs Temp 37 C 10/16/19 06:00 Pulse 73 10/16/19 06:00 Resp 18 10/16/19 06:00 BP 149/81 H 10/16/19 06:00 Results & Data ([facility]) Current Inpatient Medications Current Inpatient Medications: Current Inpatient Medications Al Hydrox/Mg Hydrox/Simethicone (Maalox) 30 ml PO Q4H PRN PRN Reason: GI Upset Stop: 11/13/19 13:39 Benztropine Mesylate (Cogentin) 0.5 mg PO Q6H PRN PRN Reason: dystonia Stop: 11/13/19 13:57 Last Admin: 10/16/19 12:44 Dose: 0.5 mg Documented by: Bismuth Subsalicylate (Kaopectate) 15 ml PO PRN PRN PRN Reason: Loose Stool Stop: 11/13/19 13:39 Docusate Sodium (Colace) 100 mg PO BID [facility] Stop: 11/13/19 20:59 Last Admin: 10/16/19 09:14 Dose: 100 mg Documented by: Hydroxyzine HCl (Vistaril) 50 mg PO HSZ PRN PRN Reason: Insomnia Stop: 11/13/19 13:39 Hydroxyzine HCl (Vistaril) 25 mg PO Q4H PRN PRN Reason: Anxiety Stop: 11/13/19 13:39 Magnesium Hydroxide (Milk Of Magnesia) 30 ml PO DAILY PRN PRN Reason: Constipation Stop: 11/13/19 13:39 Magnesium Oxide (Mag-Ox) 400 mg PO DAILY [facility] Stop: 11/14/19 08:59 Last Admin: 10/16/19 09:15 Dose: 400 mg Documented by: Polyethylene Glycol (Miralax Powder Packet) 17 gm PO DAILY MAG Stop: 11/14/19 08:59 Last Admin: 10/16/19 09:16 Dose: 17 gm Documented by: Potassium Chloride (Klor-Con M20) 20 meq PO DAILY [facility] Stop: 11/14/19 08:59 Last Admin: 10/16/19 09:15 Dose: 20 meq Documented by: Senna/Docusate Sodium (Senokot S) 1 tab PO QAM MAG Stop: 11/14/19 08:59 Last Admin: 10/16/19 09:16 Dose: 1 tab Documented by: Sodium Chloride (Emmet Nasal) 1 - 2 sprays NA PRN PRN PRN Reason: Nasal Dryness/Congestion Stop: 11/13/19 13:39 Temazepam (Restoril) 15 mg PO HSZ PRN PRN Reason: Insomnia Stop: 11/13/19 16:52 Last Admin: 10/15/19 21:26 Dose: 15 mg Documented by: Ziprasidone (Geodon) 80 mg PO BIDM MAG Stop: 11/13/19 17:44 Last Admin: 10/16/19 09:15 Dose: 80 mg Documented by: Mental Health & Subst Abuse Tx Therapist Name of Therapist: none St[employer] Bonding Machine Tender Helper Name of Stitch Bonding Machine Tender Helper: Rae @ [facility] Post Discharge Appointments Primary Care Physician Name Of Family Doctor: Dr. Jeff Lopez (1) Schizophrenia Schizophrenia type: paranoid schizophrenia Qualified Code(s): F20.0 - Paranoid schizophrenia (2) Hypertension Hypertension type: essential hypertension Qualified Code(s): I10 - Essential (primary) hypertension
[2019-10-16] MEDS: TEMAZEPAM 15 MG CAPSULE PO PRN (21:05)
[2019-10-17] MEDS: DOCUSATE SODIUM 100 MG CAP PO SCH ×2 (08:43→21:06)
[2019-10-17] MEDS: MAGNESIUM OXIDE 400 MG TAB PO SCH (08:43)
[2019-10-17] MEDS: ziprasidone HCL 80 MG CAP PO SCH ×2 (08:43→17:17)
[2019-10-17] MEDS: POTASSIUM CHLORIDE 20 MEQ TABCR PO SCH (08:43)
[2019-10-17] MEDS: DOCUSATE SODIUM/SENNA 50/8.6MG TAB PO SCH (08:44)
[2019-10-17] MEDS: POLYETHYLENE (MIRALAX) 17 GM PACK PO SCH ×2 (08:44→08:48)
[2019-10-17] MEDS: BENZTROPINE MESYLATE 0.5 MG TAB PO PRN ×2 (08:45→17:56)
--- NOTE | 2019-10-17 16:14 | Psychiatric Progress Note ---
Date of Service October 17, 2019 Impression / Recommendations Impression 74-year-old male with chronic schizophrenia who presented 10/08/2019 after he was found unresponsive at the [facility] and admitted to taking a Tylenol overdose in an attempt to end his life. Admitted to the hospitalist service for 6 days, and transferred voluntarily to our unit on 10/14/19. He was on an involuntary 305 outpatient commitment converted to inpatient on 10/16/19. He sustained hepatic damage with significant elevations in AST and ALT, and we are continuing to follow those for resolution. All of his medications were held on the medical service, but Geodon was restarted 3 days ago. Mirtazapine and Xanax were discontinued as he reported they were ineffective. He was also started on temazepam while on the hospitalist service. He continues to experience auditory hallucinations and "head buzzing", which have been contributing to persistent suicidal ideation. Patient maintains that he wants to , and is actually requesting treatment at [facility]. Patient is denying intent to harm himself here on the unit to end his life, but continues to state that he does not feel safe leaving the hospital. (1) Schizophrenia: 10/14 - Continue ziprasidone as initiated on the medical floor - resume 80mg BID dosing with meals - Continue benztropine 0.5mg as needed for reports of stiffness, though it remains unclear if this is truly related to his antipsychotic medication - Mirtazapine was discontinued on the medical floor as patient feels it had been ineffective - Continue temazepam 15mg qHS for sleep - at least while hospitalized in a supervised setting, as patient has a history of benzodiazepine abuse - Will coordinate treatment with patient's outpatient psychiatric supports - Encourage participation in group and recreational programming 10/15 -Continue ziprasidone; reviewed fasting lipid profile and fasting glucose from 02/2019, all values were within normal limits. -Discussed trial of clozapine; patient states that he believes he was on this medication in the past and that it was ineffective. Continue to provide education and encourage retrial, as he has had limited response to multiple other antipsychotics, and it would also help address suicidal thoughts in addition to psychosis. -Involve outpatient manager rn case and coordinate with psychiatrist, Dr. Alves. 10/16 -The plan is to continue ziprasidone 80 mg twice a day. We discussed other treatment options with the patient, and he says that he is not interested in trying the various options suggested. He tends to respond in the affirmative every time he is asked whether he has ever taken a number of specific medications, and replies in each instance "it did not help." He does say, somewhat convincingly, that he took clozapine (dose unspecified and unknown by the patient) a number of years ago for "a month or 2," and that it did not help. Re-challenging the patient with clozapine may be helpful, but at present the patient indicates that he will refuse to take it. -The patient hesitates when asked about loxapine and perphenazine, but then says that he has taken both. Loxapine is not on the hospital formulary. Today, the patient says that he is not interested in trying either of these medications "again." -Today, the patient tells us that he "really does not" want to go to [facility] although he had previously said that he might be interested in doing that. He adds that he does feel safer in a hospital, but feels that he would like to work towards being able to be discharged back to the community at this point. (2) Tylenol overdose: 10/14 - Continue management per medical team - Recheck LFTs tomorrow morning. Today, AST 70, ALT 631. 10/15 -Continue to trend down. AST 54, ALT 538. We will reorder LFTs for Saturday. Avoid hepatotoxic agents. 10/16 -Patient reports that he remains suicidal and confirms that his overdose of Tylenol was taken with the intent of causing his own . (3) Hypertension: 10/14 - Home medication includes clonidine 0.1mg qHS - Will continue to monitor blood pressure with daily vitals, consider resuming (4) Benzodiazepine abuse: 10/14 - Historical diagnosis of benzodiazepine abuse - Will not continue home dose of alprazolam - but will offer temazepam 15mg qHS for sleep as it has been effective - Will need to consider the safety of this medication regimen, and may suggest discontinuation of benzodiazepines at discharge given his history - Benzodiazepines are not recommended for the patient if he would be discharged to an unsupervised setting or expected to manage his own medication administration 10/16 -The patient is history of benzodiazepine abuse is noted. That history not withstanding, at seems apparent that the only hypnotic medication that has been consistently effective for this patient has been temazepam, and there is no evidence that he has been misusing this medication in the community prior to admission. -The material risks of temazepam, including but not limited to, risk of a physical habituation, risk of complicated and possibly fatal withdrawal symptoms, risk of accidents, falls and other injuries, as well as risk of worsening depression and clouded consciousness/cognitive impairment were reviewed with the patient, and he responded by saying, "I know. But it is the only thing that works. I really need to sleep, and without it the voices keep me awake all night." (5) Auditory hallucinations: 10/16 -Patient's chief complaint has to do with persistent persecutory auditory hallucinations. He describes the voices as being "electronically generated," and although he tells us that he does not know the source of the electronically generated voices, he says that he has no doubt that they are real and are coming from some entity that is trying to torture and/or kill him. His explanation for the suicide attempt was not that he has been depressed, but, instead, because he feels tortured by the voices and finds that he can no longer tolerate hearing them and no longer tolerate feeling terrorized by them. Patient also explains that he would rather at his own hand than risk being murdered by unknown forces and unknown means. -The patient's condition has been largely treatment resistant to psychiatric medications. With each antipsychotic medication mentioned, the patient's response has been to assert that the specific medicine mentioned has been tried and was not effective, or has been tried and caused worsening symptoms. Today, he asserts that he has taken clozapine in the past, but that it was not effective. He has unable to identify the dose, and does not recall when or where it was prescribed, but says that he believes that he took it for "a month or 2" before it was discontinued as ineffective. Other options for the patient might be a trial of perphenazine or loxapine. For now, the patient has indicated that he would prefer to remain on Geodon 80 mg twice a day. Risk Factors Assessment Male: Yes : Yes Do You Have Access To A Gun?: No Health Problems: No Mental Health Diagnoses: Yes Substance Use Disorders: Yes Previous Attempt: Yes Family History of Suicide: Yes (cousin) Previous Psychiatric Hospitalization: Yes Hopelessness: Yes Protective Factors Assessment Presybeterian Beliefs: No : No Responsible for Young Children: No Employed: No Stable Relationships: No Supportive Family: No Good Rapport with Provider: No Interval History Identifying Information SCOTT ROBERTO is a 74-year-old M who currently lives in [place] at the [facility]. Pt has a history of schizophrenia and this is his fourth psychiatric admission to our unit in roughly the last 7 months, with one admission to [facility] in that time as well. Pt was admitted on 10/14/19 12:33 on a 201 voluntary commitment after being treated on the medical floor since 10/09/2019 after an intentional Tylenol overdose. Chief Complaint "I'll have to think about it and get back to you on that". Review of Systems Sleep Information Total Hours of Sleep: 6.75 Sleep Comments: Jamie was up during the night and voided in the corner of the room due to being unable to locatel the bathroom, per patient. Meal Information Percent Meal Consumed - Breakfast: 100 Percent Meal Consumed - Lunch: 100 Percent Meal Consumed - Dinner: 100 Subjective Subjective Patient was seen & assessed and interval progress reviewed with nursing and social work. Well known to me from previous stays, generally refuses to meet much 1-on-1 outside of the milieu. is reportedly agreeable to [facility] hospital referral. Reportedly woke up a bit confused overnight, urinated on the floor. Still declining retrial of Clozaril. Physical Exam Psychiatric Orientation: alert, oriented x 3 and cooperative Apperance: appropriately dressed, appropriately groomed and appeared stated age Eye Contact: + fair eye contact Motor Behavior: steady gait and station and no abnormal motor movements Speech: normal rate/rhythm/volume of speech (Monotone, brief responses to questions) Affect: + depressed affect, + constricted affect and mood congruent with affect Mood: + depressed mood Thought Process: goal directed thought process and + concrete thought process Thought Content: + preoccupation (With head buzzing and the presence of auditory hallucinations), + delusions (Patient reports that he believes that the auditory hallucinations are electronically generated and represent a genuine threat to his life and safety.), + persecution and + hopelessness Suicidal Thoughts: denies suicidal intent (does admit he does not want to kill himself, but "I need somewhere safe") Homicidal Thoughts: denies homicidal thoughts Hallucinations: + auditory hallucinations; no visual hallucinations, no tactile hallucinations and no gustatory hallucinations Cognition: recent memory grossly intact, remote memory grossly intact, attention grossly intact and language grossly intact Estimated Intelligence: + above average estimated intelligence Insight: + impaired insight Judgement: + impaired judgement Vital Signs (Past 24 Hours) Last Vital Signs Temp 37.3 C 10/17/19 06:56 Pulse 89 10/17/19 06:56 Resp 16 10/17/19 06:56 BP 128/80 10/17/19 06:56 Results & Data ([facility]) Current Inpatient Medications Current Inpatient Medications: Current Inpatient Medications Al Hydrox/Mg Hydrox/Simethicone (Maalox) 30 ml PO Q4H PRN PRN Reason: GI Upset Stop: 11/13/19 13:39 Benztropine Mesylate (Cogentin) 0.5 mg PO Q6H PRN PRN Reason: dystonia Stop: 11/13/19 13:57 Last Admin: 10/17/19 08:45 Dose: 0.5 mg Documented by: Bismuth Subsalicylate (Kaopectate) 15 ml PO PRN PRN PRN Reason: Loose Stool Stop: 11/13/19 13:39 Docusate Sodium (Colace) 100 mg PO BID [facility] Stop: 11/13/19 20:59 Last Admin: 10/17/19 08:43 Dose: 100 mg Documented by: Hydroxyzine HCl (Vistaril) 50 mg PO HSZ PRN PRN Reason: Insomnia Stop: 11/13/19 13:39 Hydroxyzine HCl (Vistaril) 25 mg PO Q4H PRN PRN Reason: Anxiety Stop: 11/13/19 13:39 Magnesium Hydroxide (Milk Of Magnesia) 30 ml PO DAILY PRN PRN Reason: Constipation Stop: 11/13/19 13:39 Magnesium Oxide (Mag-Ox) 400 mg PO DAILY [facility] Stop: 11/14/19 08:59 Last Admin: 10/17/19 08:43 Dose: 400 mg Documented by: Polyethylene Glycol (Miralax Powder Packet) 17 gm PO DAILY MAG Stop: 11/14/19 08:59 Last Admin: 10/17/19 08:48 Dose: Not Given Documented by: Potassium Chloride (Klor-Con M20) 20 meq PO DAILY [facility] Stop: 11/14/19 08:59 Last Admin: 10/17/19 08:43 Dose: 20 meq Documented by: Senna/Docusate Sodium (Senokot S) 1 tab PO QAM MAG Stop: 11/14/19 08:59 Last Admin: 10/17/19 08:44 Dose: 1 tab Documented by: Sodium Chloride ([place] Nasal) 1 - 2 sprays NA PRN PRN PRN Reason: Nasal Dryness/Congestion Stop: 11/13/19 13:39 Temazepam (Restoril) 15 mg PO HSZ PRN PRN Reason: Insomnia Stop: 11/13/19 16:52 Last Admin: 10/16/19 21:05 Dose: 15 mg Documented by: Ziprasidone (Geodon) 80 mg PO BIDM MAG Stop: 11/13/19 17:44 Last Admin: 10/17/19 08:43 Dose: 80 mg Documented by: Mental Health & Subst Abuse Tx Therapist Name of Therapist: none [employer] Supervisor Name of [employer] Supervisor: Rae @ [facility] Post Discharge Appointments Primary Care Physician Name Of Family Doctor: Dr. Jeff Lopez (1) Schizophrenia Schizophrenia type: paranoid schizophrenia Qualified Code(s): F20.0 - Paranoid schizophrenia (2) Hypertension Hypertension type: essential hypertension Qualified Code(s): I10 - Essential (primary) hypertension
[2019-10-17] MEDS: TEMAZEPAM 15 MG CAPSULE PO PRN (21:07)
[2019-10-18] MEDS: BENZTROPINE MESYLATE 0.5 MG TAB PO PRN ×2 (08:05→14:06)
[2019-10-18] MEDS: DOCUSATE SODIUM/SENNA 50/8.6MG TAB PO SCH (08:06)
[2019-10-18] MEDS: ziprasidone HCL 80 MG CAP PO SCH ×2 (08:06→17:19)
[2019-10-18] MEDS: POLYETHYLENE (MIRALAX) 17 GM PACK PO SCH (08:06)
[2019-10-18] MEDS: MAGNESIUM OXIDE 400 MG TAB PO SCH (08:06)
[2019-10-18] MEDS: POTASSIUM CHLORIDE 20 MEQ TABCR PO SCH (08:06)
[2019-10-18] MEDS: DOCUSATE SODIUM 100 MG CAP PO SCH ×2 (08:09→20:38)
--- NOTE | 2019-10-18 09:44 | Psychiatric Progress Note ---
Date of Service October 18, 2019 Impression / Recommendations Impression 74-year-old male with chronic schizophrenia who presented 10/08/2019 after he was found unresponsive at the [facility] and admitted to taking a Tylenol overdose in an attempt to end his life. Admitted to the hospitalist service for 6 days, and transferred voluntarily to our unit on 10/14/19. He was on an involuntary 305 outpatient commitment converted to inpatient on 10/16/19. He sustained hepatic damage with significant elevations in AST and ALT, and we are continuing to follow those for resolution. All of his medications were held on the medical service, but Geodon was restarted 3 days ago. Mirtazapine and Xanax were discontinued as he reported they were ineffective. He was also started on temazepam while on the hospitalist service. Retrial of Clozaril starting 10/17. (1) Schizophrenia: 10/14 - Continue ziprasidone as initiated on the medical floor - resume 80mg BID dosing with meals - Continue benztropine 0.5mg as needed for reports of stiffness, though it r emains unclear if this is truly related to his antipsychotic medication - Mirtazapine was discontinued on the medical floor as patient feels it had been ineffective - Continue temazepam 15mg qHS for sleep - at least while hospitalized in a supervised setting, as patient has a history of benzodiazepine abuse - Will coordinate treatment with patient's outpatient psychiatric supports - Encourage participation in group and recreational programming 10/15 -Continue ziprasidone; reviewed fasting lipid profile and fasting glucose from 02/2019, all values were within normal limits. -Discussed trial of clozapine; patient states that he believes he was on this medication in the past and that it was ineffective. Continue to provide education and encourage retrial, as he has had limited response to multiple other antipsychotics, and it would also help address suicidal thoughts in addition to psychosis. -Involve outpatient caser in and coordinate with psychiatrist, Dr. Alves. 10/16 -The plan is to continue ziprasidone 80 mg twice a day. We discussed other treatment options with the patient, and he says that he is not interested in trying the various options suggested. He tends to respond in the affirmative every time he is asked whether he has ever taken a number of specific medications, and replies in each instance "it did not help." He does say, somewhat convincingly, that he took clozapine (dose unspecified and unknown by the patient) a number of years ago for "a month or 2," and that it did not help. Re-challenging the patient with clozapine may be helpful, but at present the patient indicates that he will refuse to take it. -The patient hesitates when asked about loxapine and perphenazine, but then says that he has taken both. Loxapine is not on the hospital formulary. Today, the patient says that he is not interested in trying either of these medications "again." -Today, the patient tells us that he "really does not" want to go to the [facility] ("[place]"), although he had previously said that he might be interested in doing that. He adds that he does feel safer in a hospital, but feels that he would like to work towards being able to be discharged back to the community at this point. 10/17 --reconsented for retrial of Clozaril following review of CBC and EKG, patient aware to monitor constipation and sialorrhea and notify staff. will dose at hs and titrate by 25 mg nightly, repeat CBC in 1 week. (2) Tylenol overdose: 10/14 - Continue management per medical team - Recheck LFTs tomorrow morning. Today, AST 70, ALT 631. 10/15 -Continue to trend down. AST 54, ALT 538. We will reorder LFTs for Saturday. Avoid hepatotoxic agents. 10/16 -Patient reports that he remains suicidal and confirms that his overdose of Tylenol was taken with the intent of causing his own . (3) Hypertension: 10/14 - Home medication includes clonidine 0.1mg qHS - Will continue to monitor blood pressure with daily vitals, consider resuming (4) Benzodiazepine abuse: 10/14 - Historical diagnosis of benzodiazepine abuse - Will not continue home dose of alprazolam - but will offer temazepam 15mg qHS for sleep as it has been effective - Will need to consider the safety of this medication regimen, and may suggest discontinuation of benzodiazepines at discharge given his history - Benzodiazepines are not recommended for the patient if he would be discharged to an unsupervised setting or expected to manage his own medication administration 10/16 -The patient is history of benzodiazepine abuse is noted. That history not withstanding, at seems apparent that the only hypnotic medication that has been consistently effective for this patient has been temazepam, and there is no evidence that he has been misusing this medication in the community prior to admission. -The material risks of temazepam, including but not limited to, risk of a physical habituation, risk of complicated and possibly fatal withdrawal symptoms, risk of accidents, falls and other injuries, as well as risk of worsening depression and clouded consciousness/cognitive impairment were reviewed with the patient, and he responded by saying, "I know. But it is the only thing that works. I really need to sleep, and without it the voices keep me awake all night." (5) Auditory hallucinations: 10/16 -Patient's chief complaint has to do with persistent persecutory auditory hallucinations. He describes the voices as being "electronically generated," and although he tells us that he does not know the source of the electronically generated voices, he says that he has no doubt that they are real and are coming from some entity that is trying to torture and/or kill him. His explanation for the suicide attempt was not that he has been depressed, but, instead, because he feels tortured by the voices and finds that he can no longer tolerate hearing them and no longer tolerate feeling terrorized by them. Patient also explains that he would rather at his own hand than risk being murdered by unknown forces and unknown means. -The patient's condition has been largely treatment resistant to psychiatric medications. With each antipsychotic medication mentioned, the patient's response has been to assert that the specific medicine mentioned has been tried and was not effective, or has been tried and caused worsening symptoms. Today, he asserts that he has taken clozapine in the past, but that it was not effective. He has unable to identify the dose, and does not recall when or where it was prescribed, but says that he believes that he took it for "a month or 2" before it was discontinued as ineffective. Other options for the patient might be a trial of perphenazine or loxapine. For now, the patient has indicated that he would prefer to remain on Geodon 80 mg twice a day. Risk Factors Assessment Male: Yes : Yes Do You Have Access To A Gun?: No Health Problems: No Mental Health Diagnoses: Yes Substance Use Disorders: Yes Previous Attempt: Yes Family History of Suicide: Yes (cousin) Previous Psychiatric Hospitalization: Yes Hopelessness: Yes Protective Factors Assessment Adventist Beliefs: No : No Responsible for Young Children: No Employed: No Stable Relationships: No Supportive Family: No Good Rapport with Provider: No Interval History Identifying Information SCOTT ROBERTO is a 74-year-old M who currently lives in [place] at the [facility]. Pt has a history of schizophrenia and this is his fourth psychiatric admission to our unit in roughly the last 7 months, with one admission to [facility] in that time as well. Pt was admitted on 10/14/19 12:33 on a 201 voluntary commitment after being treated on the medical floor since 10/09/2019 after an intentional Tylenol overdose. Chief Complaint "hallucinations are bad, lets do the Clozaril". Review of Systems Sleep Information Total Hours of Sleep: 8.25 Sleep Comments: Jamie was up during the night and voided in the corner of the room due to being unable to locatel the bathroom, per patient. Meal Information Percent Meal Consumed - Breakfast: 100 Percent Meal Consumed - Lunch: 100 Percent Meal Consumed - Dinner: 100 Subjective Subjective Patient was seen & assessed and interval progress reviewed with nursing and social work. Readily engaged in session today. denies constipation or incontinence. Has been attending groups. Reports hallucinations telling him they want to kill him, denies SI but doesn't want "to live like this" as "still buzzing" too. He states he does not want to go to the [facility] as was previously reported but in that context is willing to retry Clozaril. There is risk of QTc prolongation in combo with Geodon, reviewed that as dose is increased may be able to decrease the other but EKG on med floor nl EKG and can be repeated if stays on combo. Seems to have some confusion at times over night re: ability to locate bathroom, patient denies during day. New since last stay, unclear if related to Restoril and may d/c as Clozaril increases if combined sedation. Physical Exam Psychiatric Orientation: alert Apperance: appropriately dressed and appropriately groomed Eye Contact: + poor eye contact Motor Behavior: no abnormal motor movements nonspontaneous but better than previous Affect: + blunted affect Mood: + depressed mood Thought Process: + perseveration Thought Content: + paranoid and + persecution Suicidal Thoughts: denies suicidal thoughts Homicidal Thoughts: denies homicidal thoughts Hallucinations: + auditory hallucinations; no visual hallucinations Cognition: attention grossly intact and language grossly intact Insight: + poor insight Judgement: + poor judgement Vital Signs (Past 24 Hours) Last Vital Signs Temp 36.6 C 10/18/19 07:08 Pulse 92 H 10/18/19 07:11 Resp 18 10/18/19 07:08 BP 128/79 10/18/19 07:11 Results & Data ([facility]) Current Inpatient Medications Current Inpatient Medications: Current Inpatient Medications Al Hydrox/Mg Hydrox/Simethicone (Maalox) 30 ml PO Q4H PRN PRN Reason: GI Upset Stop: 11/13/19 13:39 Benztropine Mesylate (Cogentin) 0.5 mg PO Q6H PRN PRN Reason: dystonia Stop: 11/13/19 13:57 Last Admin: 10/18/19 08:05 Dose: 0.5 mg Documented by: Bismuth Subsalicylate (Kaopectate) 15 ml PO PRN PRN PRN Reason: Loose Stool Stop: 11/13/19 13:39 Clozapine (Clozaril) 25 mg PO HS MAG Stop: 11/17/19 21:59 Docusate Sodium (Colace) 100 mg PO BID MAG Stop: 11/13/19 20:59 Last Admin: 10/18/19 08:09 Dose: 100 mg Documented by: Hydroxyzine HCl (Vistaril) 50 mg PO HSZ PRN PRN Reason: Insomnia Stop: 11/13/19 13:39 Hydroxyzine HCl (Vistaril) 25 mg PO Q4H PRN PRN Reason: Anxiety Stop: 11/13/19 13:39 Magnesium Hydroxide (Milk Of Magnesia) 30 ml PO DAILY PRN PRN Reason: Constipation Stop: 11/13/19 13:39 Magnesium Oxide (Mag-Ox) 400 mg PO DAILY MAG Stop: 11/14/19 08:59 Last Admin: 10/18/19 08:06 Dose: 400 mg Documented by: Polyethylene Glycol (Miralax Powder Packet) 17 gm PO DAILY MAG Stop: 11/14/19 08:59 Last Admin: 10/18/19 08:06 Dose: Not Given Documented by: Potassium Chloride (Klor-Con M20) 20 meq PO DAILY MAG Stop: 11/14/19 08:59 Last Admin: 10/18/19 08:06 Dose: 20 meq Documented by: Senna/Docusate Sodium (Senokot S) 1 tab PO QAM MAG Stop: 11/14/19 08:59 Last Admin: 10/18/19 08:06 Dose: 1 tab Documented by: Sodium Chloride (Evangeline Nasal) 1 - 2 sprays NA PRN PRN PRN Reason: Nasal Dryness/Congestion Stop: 11/13/19 13:39 Temazepam (Restoril) 15 mg PO HSZ PRN PRN Reason: Insomnia Stop: 11/13/19 16:52 Last Admin: 10/17/19 21:07 Dose: 15 mg Documented by: Ziprasidone (Geodon) 80 mg PO BIDM MAG Stop: 11/13/19 17:44 Last Admin: 10/18/19 08:06 Dose: 80 mg Documented by: Mental Health & Subst Abuse Tx Therapist Name of Therapist: none [facility] Name of [facility]: Rae @ [facility] Post Discharge Appointments Primary Care Physician Name Of Family Doctor: Dr. Jeff Lopez (1) Schizophrenia Schizophrenia type: paranoid schizophrenia Qualified Code(s): F20.0 - Paranoid schizophrenia (2) Hypertension Hypertension type: essential hypertension Qualified Code(s): I10 - Essential (primary) hypertension
[2019-10-18 13:05] LABS: Basophils # (auto) 0.02 K/uL (0-0.2); Basophils % (auto) 0.3 %; Eosinophils # (auto) 0.21 K/uL (0-0.5); Eosinophils % (auto) 2.8 %; Hematocrit (blood only) 40.8 % (42-52); Hemoglobin 13.5 g/dL (14.0-18.0); Immature Granulocytes # (auto) 0.03 K/uL (0.00-0.02); Immature Granulocytes % (auto) 0.4 %; Lymphocytes # (auto) 1.42 K/uL (1.2-3.4); Mean Corpuscular Hemoglobin 32.1 pg (25-34); Mean Corpuscular Volume 97.1 fL (80-100); Mean Platelet Volume 8.5 fL (7.4-10.4); Monocytes # (auto) 0.94 K/uL (0.11-0.59); Monocytes % (auto) 12.6 %; Neutrophils # (auto) 4.85 K/uL (1.4-6.5); Neutrophils % (auto) 64.9 %; Platelet Count 311 K/uL (130-400); RDW Coefficient of Variation 14.3 % (11.5-14.5); RDW Standard Deviation 50.1 fL (36.4-46.3); White Blood Count 7.47 K/uL (4.8-10.8)
[2019-10-18 13:23] LABS: Mean Corpuscular Hgb Conc 33.1 g/dL (32-36)
[2019-10-18] MEDS: TEMAZEPAM 15 MG CAPSULE PO PRN (20:39)
[2019-10-18] MEDS ORDERED: cloZAPine 25 MG TAB PO SCH (22:00)
[2019-10-19] MEDS: DOCUSATE SODIUM/SENNA 50/8.6MG TAB PO SCH (08:25)
[2019-10-19] MEDS: DOCUSATE SODIUM 100 MG CAP PO SCH ×2 (08:25→20:59)
[2019-10-19] MEDS: ziprasidone HCL 80 MG CAP PO SCH ×2 (08:25→17:36)
[2019-10-19] MEDS: POTASSIUM CHLORIDE 20 MEQ TABCR PO SCH (08:25)
[2019-10-19] MEDS: MAGNESIUM OXIDE 400 MG TAB PO SCH (08:26)
[2019-10-19] MEDS: POLYETHYLENE (MIRALAX) 17 GM PACK PO SCH (08:26)
[2019-10-19 08:35] LABS: Alanine Aminotransferase 195 U/L (12-78); Albumin Level 3.2 gm/dl (3.4-5.0); Alkaline Phosphatase 73 U/L (45-117); Aspartate Aminotransferase 23 U/L (15-37); Bilirubin Direct < 0.1 mg/dl (0-0.2); Bilirubin,Total 0.5 mg/dl (0.2-1); Total Protein 6.7 gm/dl (6.4-8.2)
--- NOTE | 2019-10-19 10:18 | Psychiatric Progress Note ---
Date of Service October 19, 2019 Impression / Recommendations Impression 74-year-old male with chronic schizophrenia who presented 10/08/2019 after he was found unresponsive at the [facility] and admitted to taking a Tylenol overdose in an attempt to end his life. Admitted to the hospitalist service for 6 days, and transferred voluntarily to our unit on 10/14/19. He was on an involuntary 305 outpatient commitment converted to inpatient on 10/16/19. He sustained hepatic damage with significant elevations in AST and ALT, and we are continuing to follow those for resolution. All of his medications were held on the medical service, but Geodon was restarted 3 days ago. Mirtazapine and Xanax were discontinued as he reported they were ineffective. He was also started on temazepam while on the hospitalist service. Retrial of Clozaril starting 10/17. (1) Schizophrenia: 10/14 - Continue ziprasidone as initiated on the medical floor - resume 80mg BID dosing with meals - Continue benztropine 0.5mg as needed for reports of stiffness, though it r emains unclear if this is truly related to his antipsychotic medication - Mirtazapine was discontinued on the medical floor as patient feels it had been ineffective - Continue temazepam 15mg qHS for sleep - at least while hospitalized in a supervised setting, as patient has a history of benzodiazepine abuse - Will coordinate treatment with patient's outpatient psychiatric supports - Encourage participation in group and recreational programming 10/15 -Continue ziprasidone; reviewed fasting lipid profile and fasting glucose from 02/2019, all values were within normal limits. -Discussed trial of clozapine; patient states that he believes he was on this medication in the past and that it was ineffective. Continue to provide education and encourage retrial, as he has had limited response to multiple other antipsychotics, and it would also help address suicidal thoughts in addition to psychosis. -Involve outpatient casework manager and coordinate with psychiatrist, Dr. Alves. 10/16 -The plan is to continue ziprasidone 80 mg twice a day. We discussed other treatment options with the patient, and he says that he is not interested in trying the various options suggested. He tends to respond in the affirmative every time he is asked whether he has ever taken a number of specific medications, and replies in each instance "it did not help." He does say, somewhat convincingly, that he took clozapine (dose unspecified and unknown by the patient) a number of years ago for "a month or 2," and that it did not help. Re-challenging the patient with clozapine may be helpful, but at present the patient indicates that he will refuse to take it. -The patient hesitates when asked about loxapine and perphenazine, but then says that he has taken both. Loxapine is not on the hospital formulary. Today, the patient says that he is not interested in trying either of these medications "again." -Today, the patient tells us that he "really does not" want to go to the [facility] ("[facility] although he had previously said that he might be interested in doing that. He adds that he does feel safer in a hospital, but feels that he would like to work towards being able to be discharged back to the community at this point. 10/17 --reconsented for retrial of Clozaril following review of CBC and EKG, patient aware to monitor constipation and sialorrhea and notify staff. will dose at hs and titrate by 25 mg nightly, repeat CBC in 1 week. 10/18--titrate Clozaril to 50 mg po qhs, Dr. Campos notified to consider EKG for repeat QTC on med combo as dose is increased, EPS apparently predates start of Clozaril and is not new, he is agreeable to add 0.5 mg Cogentin standing order as trial basis. (2) Tylenol overdose: 10/14 - Continue management per medical team - Recheck LFTs tomorrow morning. Today, AST 70, ALT 631. 10/15 -Continue to trend down. AST 54, ALT 538. We will reorder LFTs for Saturday. Avoid hepatotoxic agents. 10/16 -Patient reports that he remains suicidal and confirms that his overdose of Tylenol was taken with the intent of causing his own . (3) Hypertension: 10/14 - Home medication includes clonidine 0.1mg qHS - Will continue to monitor blood pressure with daily vitals, consider resuming (4) Benzodiazepine abuse: 10/14 - Historical diagnosis of benzodiazepine abuse - Will not continue home dose of alprazolam - but will offer temazepam 15mg qHS for sleep as it has been effective - Will need to consider the safety of this medication regimen, and may suggest discontinuation of benzodiazepines at discharge given his history - Benzodiazepines are not recommended for the patient if he would be discharged to an unsupervised setting or expected to manage his own medication administration 10/16 -The patient is history of benzodiazepine abuse is noted. That history not withstanding, at seems apparent that the only hypnotic medication that has been consistently effective for this patient has been temazepam, and there is no evidence that he has been misusing this medication in the community prior to admission. -The material risks of temazepam, including but not limited to, risk of a physical habituation, risk of complicated and possibly fatal withdrawal symptoms, risk of accidents, falls and other injuries, as well as risk of worsening depression and clouded consciousness/cognitive impairment were reviewed with the patient, and he responded by saying, "I know. But it is the only thing that works. I really need to sleep, and without it the voices keep me awake all night." (5) Auditory hallucinations: 10/16 -Patient's chief complaint has to do with persistent persecutory auditory hallucinations. He describes the voices as being "electronically generated," and although he tells us that he does not know the source of the electronically generated voices, he says that he has no doubt that they are real and are coming from some entity that is trying to torture and/or kill him. His explanation for the suicide attempt was not that he has been depressed, but, instead, because he feels tortured by the voices and finds that he can no longer tolerate hearing them and no longer tolerate feeling terrorized by them. Patient also explains that he would rather at his own hand than risk being murdered by unknown forces and unknown means. -The patient's condition has been largely treatment resistant to psychiatric medications. With each antipsychotic medication mentioned, the patient's response has been to assert that the specific medicine mentioned has been tried and was not effective, or has been tried and caused worsening symptoms. Today, he asserts that he has taken clozapine in the past, but that it was not effective. He has unable to identify the dose, and does not recall when or where it was prescribed, but says that he believes that he took it for "a month or 2" before it was discontinued as ineffective. Other options for the patient might be a trial of perphenazine or loxapine. For now, the patient has indicated that he would prefer to remain on Geodon 80 mg twice a day. Risk Factors Assessment Male: Yes : Yes Do You Have Access To A Gun?: No Health Problems: No Mental Health Diagnoses: Yes Substance Use Disorders: Yes Previous Attempt: Yes Family History of Suicide: Yes (cousin) Previous Psychiatric Hospitalization: Yes Hopelessness: Yes Protective Factors Assessment Judaism Beliefs: No : No Responsible for Young Children: No Employed: No Stable Relationships: No Supportive Family: No Good Rapport with Provider: No Interval History Identifying Information SCOTT ROBERTO is a 74-year-old M who currently lives in [place] at the [facility]. Pt has a history of schizophrenia and this is his fourth psychiatric admission to our unit in roughly the last 7 months, with one admission to [facility] in that time as well. Pt was admitted on 10/14/19 12:33 on a 201 voluntary commitment after being treated on the medical floor since 10/09/2019 after an intentional Tylenol overdose. Chief Complaint "I get this weird feeling in my mouth and jaw and the Cogentin helped". Review of Systems Sleep Information Total Hours of Sleep: 7 Meal Information Percent Meal Consumed - Breakfast: 100 Percent Meal Consumed - Lunch: 100 Percent Meal Consumed - Dinner: 100 Subjective Subjective Patient was seen & assessed and interval progress reviewed with treatment team. Slept better last night, no incontinence, snores at baseline. States that prn Cogentin helped tongue feeling thick which triggered oral dyskinesias. No TD on exam this am, does report some baseline restless legs but doesn't want to resume propranolol. Asked appropriate questions about Clozaril titration and his liver function tests which are much improved. Physical Exam Psychiatric Orientation: alert and oriented x 3 Apperance: appropriately groomed Eye Contact: + fair eye contact Motor Behavior: steady gait and station; n akathisia Speech: normal rate/rhythm/volume of speech Affect: + blunted affect Mood: + depressed mood Thought Process: + concrete thought process Thought Content: + preoccupation Suicidal Thoughts: denies suicidal thoughts (but also states "It's impossible to live with these angeles") Homicidal Thoughts: denies homicidal thoughts Hallucinations: + auditory hallucinations; no visual hallucinations Cognition: attention grossly intact Insight: + impaired insight Judgement: + impaired judgement Vital Signs (Past 24 Hours) Last Vital Signs Temp 36.7 C 10/19/19 06:00 Pulse 87 10/19/19 06:50 Resp 18 10/19/19 06:00 BP 124/74 10/19/19 06:50 Results & Data ([facility]) Laboratory Results Laboratory Results - last 24 hr 10/18/19 10/19/19 12:52 07:52 WBC 7.47 RBC 4.20 L Hgb 13.5 L Hct 40.8 L MCV 97.1 MCH 32.1 MCHC 33.1 RDW Std Deviation 50.1 H RDW Coeff of Namita 14.3 Plt Count 311 MPV 8.5 Immature Gran % (Auto) 0.4 Neut % (Auto) 64.9 Lymph % (Auto) 19.0 [place] % (Auto) 12.6 Eos % (Auto) 2.8 Baso % (Auto) 0.3 Immature Gran # (Auto) 0.03 H Neut # (Auto) 4.85 Lymph # (Auto) 1.42 [place] # (Auto) 0.94 H Eos # (Auto) 0.21 Baso # (Auto) 0.02 Total Bilirubin 0.5 Direct Bilirubin < 0.1 AST 23 ALT 195 H Alkaline Phosphatase 73 Total Protein 6.7 Albumin 3.2 L Current Inpatient Medications Current Inpatient Medications: Current Inpatient Medications Al Hydrox/Mg Hydrox/Simethicone (Maalox) 30 ml PO Q4H PRN PRN Reason: GI Upset Stop: 11/13/19 13:39 Benztropine Mesylate (Cogentin) 0.5 mg PO Q6H PRN PRN Reason: dystonia Stop: 11/13/19 13:57 Last Admin: 10/18/19 14:06 Dose: 0.5 mg Documented by: Benztropine Mesylate (Cogentin) 0.5 mg PO BID17 [facility] Stop: 11/18/19 16:59 Bismuth Subsalicylate (Kaopectate) 15 ml PO PRN PRN PRN Reason: Loose Stool Stop: 11/13/19 13:39 Clozapine (Clozaril) 50 mg PO HS [facility]; Protocol Stop: 11/18/19 21:59 Docusate Sodium (Colace) 100 mg PO BID [facility] Stop: 11/13/19 20:59 Last Admin: 10/19/19 08:25 Dose: 100 mg Documented by: Hydroxyzine HCl (Vistaril) 50 mg PO HSZ PRN PRN Reason: Insomnia Stop: 11/13/19 13:39 Hydroxyzine HCl (Vistaril) 25 mg PO Q4H PRN PRN Reason: Anxiety Stop: 11/13/19 13:39 Magnesium Hydroxide (Milk Of Magnesia) 30 ml PO DAILY PRN PRN Reason: Constipation Stop: 11/13/19 13:39 Magnesium Oxide (Mag-Ox) 400 mg PO DAILY MAG Stop: 11/14/19 08:59 Last Admin: 10/19/19 08:26 Dose: 400 mg Documented by: Polyethylene Glycol (Miralax Powder Packet) 17 gm PO DAILY MAG Stop: 11/14/19 08:59 Last Admin: 10/19/19 08:26 Dose: 17 gm Documented by: Potassium Chloride (Klor-Con M20) 20 meq PO DAILY MAG Stop: 11/14/19 08:59 Last Admin: 10/19/19 08:25 Dose: 20 meq Documented by: Senna/Docusate Sodium (Senokot S) 1 tab PO QAM MAG Stop: 11/14/19 08:59 Last Admin: 10/19/19 08:25 Dose: 1 tab Documented by: Sodium Chloride ([place] Nasal) 1 - 2 sprays NA PRN PRN PRN Reason: Nasal Dryness/Congestion Stop: 11/13/19 13:39 Temazepam (Restoril) 15 mg PO HSZ PRN PRN Reason: Insomnia Stop: 11/13/19 16:52 Last Admin: 10/18/19 20:39 Dose: 15 mg Documented by: Ziprasidone (Geodon) 80 mg PO BIDM MAG Stop: 11/13/19 17:44 Last Admin: 10/19/19 08:25 Dose: 80 mg Documented by: Mental Health & Subst Abuse Tx Therapist Name of Therapist: none Biology Adjunct Instructor Name of Biology Adjunct Instructor: Pat @ [employer] Post Discharge Appointments Primary Care Physician Name Of Family Doctor: Dr. Jeff Lopez (1) Schizophrenia Schizophrenia type: paranoid schizophrenia Qualified Code(s): F20.0 - Paranoid schizophrenia (2) Hypertension Hypertension type: essential hypertension Qualified Code(s): I10 - Essential (primary) hypertension
[2019-10-19] MEDS: BENZTROPINE MESYLATE 0.5 MG TAB PO PRN (14:34)
[2019-10-19] MEDS: BENZTROPINE MESYLATE 0.5 MG TAB PO SCH (17:36)
[2019-10-19] MEDS: TEMAZEPAM 15 MG CAPSULE PO PRN (20:59)
[2019-10-19] MEDS ORDERED: cloZAPine 25 MG TAB PO SCH (22:00)
[2019-10-20] MEDS: MAGNESIUM OXIDE 400 MG TAB PO SCH (08:33)
[2019-10-20] MEDS: ziprasidone HCL 80 MG CAP PO SCH ×2 (08:33→16:49)
[2019-10-20] MEDS: POTASSIUM CHLORIDE 20 MEQ TABCR PO SCH (08:33)
[2019-10-20] MEDS: DOCUSATE SODIUM 100 MG CAP PO SCH ×2 (08:33→21:11)
[2019-10-20] MEDS: POLYETHYLENE (MIRALAX) 17 GM PACK PO SCH (08:33)
[2019-10-20] MEDS: BENZTROPINE MESYLATE 0.5 MG TAB PO SCH ×2 (08:33→16:49)
[2019-10-20] MEDS: DOCUSATE SODIUM/SENNA 50/8.6MG TAB PO SCH (08:36)
--- NOTE | 2019-10-20 09:39 | Psychiatric Progress Note ---
Date of Service October 20, 2019 Impression / Recommendations Impression 74-year-old male with chronic schizophrenia who presented 10/08/2019 after he was found unresponsive at the [facility] and admitted to taking a Tylenol overdose in an attempt to end his life. Admitted to the hospitalist service for 6 days, and transferred voluntarily to our unit on 10/14/19. He was on an involuntary 305 outpatient commitment converted to inpatient on 10/16/19. He sustained hepatic damage with significant elevations in AST and ALT, and we are continuing to follow those for resolution. All of his medications were held on the medical service, with ziprasidone being re-titrated at time of transfer to our unit. Mirtazapine and Xanax were discontinued as he reported they were ineffective. He was started on temazepam while on the hospitalist service for reports of poor sleep, and this medication has appeared to be effective - will need to determine discharge plans given history of benzodiazepine abuse; however, patient is likely to be discharged back to his [facility] where medication can be monitored. Pt did consent to retrial of Clozaril starting 10/17, with dose scheduled to increase by 25mg each evening until effective dose is achieved. Pt continues to report AH and suicidal ideation, stating he is unable to contract for safety outside of the hospital setting at this time. (1) Schizophrenia: 10/14 - Continue ziprasidone as initiated on the medical floor - resume 80mg BID dosing with meals - Continue benztropine 0.5mg as needed for reports of stiffness, though it remains unclear if this is truly related to his antipsychotic medication - Mirtazapine was discontinued on the medical floor as patient feels it had been ineffective - Continue temazepam 15mg qHS for sleep - at least while hospitalized in a supervised setting, as patient has a history of benzodiazepine abuse - Will coordinate treatment with patient's outpatient psychiatric supports - Encourage participation in group and recreational programming 10/15 -Continue ziprasidone; reviewed fasting lipid profile and fasting glucose from 02/2019, all values were within normal limits. -Discussed trial of clozapine; patient states that he believes he was on this medication in the past and that it was ineffective. Continue to provide education and encourage retrial, as he has had limited response to multiple other antipsychotics, and it would also help address suicidal thoughts in addition to psychosis. -Involve outpatient case packer and coordinate with psychiatrist, Dr. Alves. 10/16 -The plan is to continue ziprasidone 80 mg twice a day. We discussed other treatment options with the patient, and he says that he is not interested in trying the various options suggested. He tends to respond in the affirmative every time he is asked whether he has ever taken a number of specific medications, and replies in each instance "it did not help." He does say, somewhat convincingly, that he took clozapine (dose unspecified and unknown by the patient) a number of years ago for "a month or 2," and that it did not help. Re-challenging the patient with clozapine may be helpful, but at present the patient indicates that he will refuse to take it. -The patient hesitates when asked about loxapine and perphenazine, but then says that he has taken both. Loxapine is not on the hospital formulary. Today, the patient says that he is not interested in trying either of these medications "again." -Today, the patient tells us that he "really does not" want to go to the [facility] although he had previously said that he might be interested in doing that. He adds that he does feel safer in a hospital, but feels that he would like to work towards being able to be discharged back to the community at this point. 10/17 --reconsented for retrial of Clozaril following review of CBC and EKG, patient aware to monitor constipation and sialorrhea and notify staff. will dose at hs and titrate by 25 mg nightly, repeat CBC in 1 week. 10/18--titrate Clozaril to 50 mg po qhs, Dr. Campos notified to consider EKG for repeat QTC on med combo as dose is increased, EPS apparently predates start of Clozaril and is not new, he is agreeable to add 0.5 mg Cogentin standing order as trial basis. 10/19 - Continue clozapine titration (now ordered for automatic titration of 25mg each evening), pt to receive 75mg tonight - Pt reports his condition remains unchanged at this time, but is aware that clozapine will need to be titrated to an effective dose range - At this time, patient maintains his desire would be for eventual discharge back to the [facility] - no longer requesting [facility] referral - He remains suicidal and continues to report head buzzing and auditory hallucinations that are overwhelming to him (2) Tylenol overdose: 10/14 - Continue management per medical team - Recheck LFTs tomorrow morning. Today, AST 70, ALT 631. 10/15 -Continue to trend down. AST 54, ALT 538. We will reorder LFTs for Saturday. Avoid hepatotoxic agents. 10/16 -Patient reports that he remains suicidal and confirms that his overdose of Tylenol was taken with the intent of causing his own . (3) Hypertension: 10/14 - Home medication includes clonidine 0.1mg qHS - Will continue to monitor blood pressure with daily vitals, consider resuming (4) Benzodiazepine abuse: 10/14 - Historical diagnosis of benzodiazepine abuse - Will not continue home dose of alprazolam - but will offer temazepam 15mg qHS for sleep as it has been effective - Will need to consider the safety of this medication regimen, and may suggest discontinuation of benzodiazepines at discharge given his history - Benzodiazepines are not recommended for the patient if he would be discharged to an unsupervised setting or expected to manage his own medication administration 10/16 -The patient is history of benzodiazepine abuse is noted. That history not withstanding, at seems apparent that the only hypnotic medication that has been consistently effective for this patient has been temazepam, and there is no evidence that he has been misusing this medication in the community prior to admission. -The material risks of temazepam, including but not limited to, risk of a physical habituation, risk of complicated and possibly fatal withdrawal symptoms, risk of accidents, falls and other injuries, as well as risk of worsening depression and clouded consciousness/cognitive impairment were reviewed with the patient, and he responded by saying, "I know. But it is the only thing that works. I really need to sleep, and without it the voices keep me awake all night." (5) Auditory hallucinations: 10/16 -Patient's chief complaint has to do with persistent persecutory auditory hallucinations. He describes the voices as being "electronically generated," and although he tells us that he does not know the source of the electronically generated voices, he says that he has no doubt that they are real and are coming from some entity that is trying to torture and/or kill him. His explanation for the suicide attempt was not that he has been depressed, but, instead, because he feels tortured by the voices and finds that he can no longer tolerate hearing them and no longer tolerate feeling terrorized by them. Patient also explains that he would rather at his own hand than risk being murdered by unknown forces and unknown means. -The patient's condition has been largely treatment resistant to psychiatric medications. With each antipsychotic medication mentioned, the patient's response has been to assert that the specific medicine mentioned has been tried and was not effective, or has been tried and caused worsening symptoms. Today, he asserts that he has taken clozapine in the past, but that it was not effective. He has unable to identify the dose, and does not recall when or where it was prescribed, but says that he believes that he took it for "a month or 2" before it was discontinued as ineffective. Other options for the patient might be a trial of perphenazine or loxapine. For now, the patient has indicated that he would prefer to remain on Geodon 80 mg twice a day. Risk Factors Assessment Male: Yes : Yes Do You Have Access To A Gun?: No Health Problems: No Mental Health Diagnoses: Yes Substance Use Disorders: Yes Previous Attempt: Yes Family History of Suicide: Yes (cousin) Previous Psychiatric Hospitalization: Yes Hopelessness: Yes Protective Factors Assessment Anglican Beliefs: No : No Responsible for Young Children: No Employed: No Stable Relationships: No Supportive Family: No Good Rapport with Provider: No Interval History Identifying Information SCOTT ROBERTO is a 74-year-old M who currently lives in [place] at the [facility]. Pt has a history of schizophrenia and this is his fourth psychiatric admission to our unit in roughly the last 7 months, with one admission to [facility] in that time as well. Pt was admitted on 10/14/19 12:33 on a 201 voluntary commitment after being treated on the medical floor since 10/09/2019 after an intentional Tylenol overdose. 306 conversion hearing was held on 10/16/2019 and his 305 IOC was converted to an inpatient commitment. Chief Complaint "I can't hear anything in groups." Review of Systems Notes Constitutional: reports fatigue HEENT: reports ongoing "head buzzing", now reporting hearing loss Cardiovascular: denied Respiratory: denied Gastrointestinal: denied Neurological: denied Psychiatric: denies symptoms other than stated above Total of at least 10 systems reviewed, pertinent positives as above and in HPI. Sleep Information Total Hours of Sleep: 4.5 Sleep Comments: Jamie was up during the night and voided in the corner of the r oom due to being unable to locatel the bathroom, per patient. Meal Information Percent Meal Consumed - Breakfast: 100 Percent Meal Consumed - Lunch: 100 Percent Meal Consumed - Dinner: 100 Subjective Subjective Patient was seen & assessed and interval progress reviewed with nursing and social work. Staff report the patient has continued to attend group programming. He has had visits from his case packer and the sales representative malt liquors from his CR[facility]. Pt was seen today to assess progress since admission. Pt informs this provider that he has had issues with his hearing, and that he is often unsure what is happening in groups due to inability to hear all individuals participating. He states that he has not disclosed this to staff previously, but was willing to allow this provider to inform staff in order to ensure he is able to find groups more meaningful. Pt states that when his "head buzzing" is severe "I can't really hear anything else at all." Pt does report "Cogentin works!", indicating that his jaw and neck stiffness responds well to the medication. He remains agreeable with ongoing titration of clozapine, though is not outwardly hopeful it will be helpful. Pt was asked about poor sleep last evening, as it was reported he was awake intermittently throughout the night and only received ~4 total hours of sleep. Pt responds by saying, "that's kind of subjective, how would they know?" He then does admit that his sleep was restless and that he had numerous dreams last night, which he can no longer remember. Pt states he mood today is an 8/10 - indicating he is not struggling with depression. Instead, patient states "I'm not depressed, I'm just tortured." Pt continues to report suicidal ideation, admitting he wants to . He verbalizes a desire to return to his [facility] when he is discharge, stating "I don't really know what I was thinking when I talked about Celena." Pt denies other needs or concerns today. Physical Exam Psychiatric Orientation: alert, oriented x 3 and cooperative Apperance: appropriately dressed, appropriately groomed and appeared stated age Eye Contact: good eye contact Motor Behavior: steady gait and station and no abnormal motor movements Speech: normal rate/rhythm/volume of speech (monotone, brief responses to questions) Affect: + depressed affect and + flat affect; + mood not congruent with affect Mood: no depressed mood ("I'm not depressed, I'm just tortured") Thought Process: goal directed thought process and + concrete thought process Thought Content: reality based without delusions and + hopelessness Suicidal Thoughts: denies suicidal intent (does admit he does not want to kill himself, but does want to ); + reports suicidal thoughts Homicidal Thoughts: denies homicidal thoughts Hallucinations: + auditory hallucinations; no visual hallucinations Cognition: attention grossly intact and language grossly intact Insight: + impaired insight Judgement: + impaired judgement Vital Signs (Past 24 Hours) Last Vital Signs Temp 36.9 C 10/20/19 06:59 Pulse 93 H 10/20/19 07:00 Resp 16 10/20/19 06:59 BP 134/77 10/20/19 07:00 Results & Data ([facility]) Current Inpatient Medications Current Inpatient Medications: Current Inpatient Medications Al Hydrox/Mg Hydrox/Simethicone (Maalox) 30 ml PO Q4H PRN PRN Reason: GI Upset Stop: 11/13/19 13:39 Benztropine Mesylate (Cogentin) 0.5 mg PO Q6H PRN PRN Reason: dystonia Stop: 11/13/19 13:57 Last Admin: 10/19/19 14:34 Dose: 0.5 mg Documented by: Benztropine Mesylate (Cogentin) 0.5 mg PO [id number] [facility] Stop: 11/18/19 16:59 Last Admin: 10/20/19 08:33 Dose: 0.5 mg Documented by: Bismuth Subsalicylate (Kaopectate) 15 ml PO PRN PRN PRN Reason: Loose Stool Stop: 11/13/19 13:39 Clozapine (Clozaril) 50 mg PO HS MAG; Protocol Stop: 11/18/19 21:59 Last Admin: 10/19/19 20:59 Dose: 50 mg Documented by: Docusate Sodium (Colace) 100 mg PO BID MAG Stop: 11/13/19 20:59 Last Admin: 10/20/19 08:33 Dose: 100 mg Documented by: Hydroxyzine HCl (Vistaril) 50 mg PO HSZ PRN PRN Reason: Insomnia Stop: 11/13/19 13:39 Hydroxyzine HCl (Vistaril) 25 mg PO Q4H PRN PRN Reason: Anxiety Stop: 11/13/19 13:39 Magnesium Hydroxide (Milk Of Magnesia) 30 ml PO DAILY PRN PRN Reason: Constipation Stop: 11/13/19 13:39 Magnesium Oxide (Mag-Ox) 400 mg PO DAILY MAG Stop: 11/14/19 08:59 Last Admin: 10/20/19 08:33 Dose: 400 mg Documented by: Polyethylene Glycol (Miralax Powder Packet) 17 gm PO DAILY MAG Stop: 11/14/19 08:59 Last Admin: 10/20/19 08:33 Dose: 17 gm Documented by: Potassium Chloride (Klor-Con M20) 20 meq PO DAILY MAG Stop: 11/14/19 08:59 Last Admin: 10/20/19 08:33 Dose: 20 meq Documented by: Senna/Docusate Sodium (Senokot S) 1 tab PO QAM MAG Stop: 11/14/19 08:59 Last Admin: 10/20/19 08:36 Dose: 1 tab Documented by: Sodium Chloride ([place] Nasal) 1 - 2 sprays NA PRN PRN PRN Reason: Nasal Dryness/Congestion Stop: 11/13/19 13:39 Temazepam (Restoril) 15 mg PO HSZ PRN PRN Reason: Insomnia Stop: 11/13/19 16:52 Last Admin: 10/19/19 20:59 Dose: 15 mg Documented by: Ziprasidone (Geodon) 80 mg PO BIDM MAG Stop: 11/13/19 17:44 Last Admin: 10/20/19 08:33 Dose: 80 mg Documented by: Mental Health & Subst Abuse Tx Therapist Name of Therapist: none Judicial Clerk Name of Judicial Clerk: Pat @ [facility] Post Discharge Appointments Primary Care Physician Name Of Family Doctor: Dr. Jeff Lopez (1) Schizophrenia Schizophrenia type: paranoid schizophrenia Qualified Code(s): F20.0 - Paranoid schizophrenia (2) Hypertension Hypertension type: essential hypertension Qualified Code(s): I10 - Essential (primary) hypertension
[2019-10-20] MEDS: cloZAPine 25 MG TAB PO SCH (21:14)
[2019-10-20] MEDS: TEMAZEPAM 15 MG CAPSULE PO PRN (21:17)
[2019-10-21] MEDS: BENZTROPINE MESYLATE 0.5 MG TAB PO SCH ×2 (08:32→17:25)
[2019-10-21] MEDS: POLYETHYLENE (MIRALAX) 17 GM PACK PO SCH (08:32)
[2019-10-21] MEDS: DOCUSATE SODIUM/SENNA 50/8.6MG TAB PO SCH (08:33)
[2019-10-21] MEDS: DOCUSATE SODIUM 100 MG CAP PO SCH ×2 (08:33→21:02)
[2019-10-21] MEDS: MAGNESIUM OXIDE 400 MG TAB PO SCH (08:33)
[2019-10-21] MEDS: ziprasidone HCL 80 MG CAP PO SCH (08:33)
[2019-10-21] MEDS: POTASSIUM CHLORIDE 20 MEQ TABCR PO SCH (08:33)
--- NOTE | 2019-10-21 13:29 | Psychiatric Progress Note ---
Date of Service October 21, 2019 Impression / Recommendations Impression 74-year-old male with chronic schizophrenia who presented 10/08/2019 after he was found unresponsive at the [facility] and admitted to taking a Tylenol overdose in an attempt to end his life. Admitted to the hospitalist service for 6 days, and transferred voluntarily to our unit on 10/14/19. He was on an involuntary 305 outpatient commitment converted to inpatient on 10/16/19. He sustained hepatic damage with significant elevations in AST and ALT, and we are continuing to follow those for resolution. All of his medications were held on the medical service, with ziprasidone being re-titrated at time of transfer to our unit. Mirtazapine and Xanax were discontinued as he reported they were ineffective. He was started on temazepam while on the hospitalist service for reports of poor sleep, and this medication has appeared to be effective - will need to determine discharge plans given history of benzodiazepine abuse; however, patient is likely to be discharged back to his [facility] where medication can be monitored. Pt did consent to retrial of Clozaril starting 10/17, with dose scheduled to increase by 25mg each evening until effective dose is achieved. Pt continues to report AH and suicidal ideation, stating he is unable to contract for safety outside of the hospital setting at this time. (1) Schizophrenia: 10/14 - Continue ziprasidone as initiated on the medical floor - resume 80mg BID dosing with meals - Continue benztropine 0.5mg as needed for reports of stiffness, though it remains unclear if this is truly related to his antipsychotic medication - Mirtazapine was discontinued on the medical floor as patient feels it had been ineffective - Continue temazepam 15mg qHS for sleep - at least while hospitalized in a supervised setting, as patient has a history of benzodiazepine abuse - Will coordinate treatment with patient's outpatient psychiatric supports - Encourage participation in group and recreational programming 10/15 -Continue ziprasidone; reviewed fasting lipid profile and fasting glucose from 02/2019, all values were within normal limits. -Discussed trial of clozapine; patient states that he believes he was on this medication in the past and that it was ineffective. Continue to provide education and encourage retrial, as he has had limited response to multiple other antipsychotics, and it would also help address suicidal thoughts in addition to psychosis. -Involve outpatient rn case mgr and coordinate with psychiatrist, Dr. Alves. 10/16 -The plan is to continue ziprasidone 80 mg twice a day. We discussed other treatment options with the patient, and he says that he is not interested in trying the various options suggested. He tends to respond in the affirmative every time he is asked whether he has ever taken a number of specific medications, and replies in each instance "it did not help." He does say, somewhat convincingly, that he took clozapine (dose unspecified and unknown by the patient) a number of years ago for "a month or 2," and that it did not help. Re-challenging the patient with clozapine may be helpful, but at present the patient indicates that he will refuse to take it. -The patient hesitates when asked about loxapine and perphenazine, but then says that he has taken both. Loxapine is not on the hospital formulary. Today, the patient says that he is not interested in trying either of these medications "again." -Today, the patient tells us that he "really does not" want to go to the [facility] ("[place]"), although he had previously said that he might be interested in doing that. He adds that he does feel safer in a hospital, but feels that he would like to work towards being able to be discharged back to the community at this point. 10/17 --reconsented for retrial of Clozaril following review of CBC and EKG, patient aware to monitor constipation and sialorrhea and notify staff. will dose at hs and titrate by 25 mg nightly, repeat CBC in 1 week. 10/18--titrate Clozaril to 50 mg po qhs, Dr. Campos notified to consider EKG for repeat QTC on med combo as dose is increased, EPS apparently predates start of Clozaril and is not new, he is agreeable to add 0.5 mg Cogentin standing order as trial basis. 10/19 - Continue clozapine titration (now ordered for automatic titration of 25mg each evening), pt to receive 75mg tonight - Pt reports his condition remains unchanged at this time, but is aware that clozapine will need to be titrated to an effective dose range - At this time, patient maintains his desire would be for eventual discharge back to the [facility] - no longer requesting [facility] referral - He remains suicidal and continues to report head buzzing and auditory hallucinations that are overwhelming to him 3/4 - Continue clozapine titration - pt to receive 100mg tonight - Will reduce ziprasidone to 60mg BID given continued titration of clozapine and reported ineffectiveness of the medication - will order an EKG for tomorrow morning, given cross-titration putting patient at increased risk of QTc prolongation. - Ongoing discussions regarding discharge planning - Pt continues to verbalize SI and feels he cannot contract for safety outside of the hospital setting (2) Tylenol overdose: 10/14 - Continue management per medical team - Recheck LFTs tomorrow morning. Today, AST 70, ALT 631. 10/15 -Continue to trend down. AST 54, ALT 538. We will reorder LFTs for Saturday. Avoid hepatotoxic agents. 10/16 -Patient reports that he remains suicidal and confirms that his overdose of Tylenol was taken with the intent of causing his own . (3) Hypertension: 10/14 - Home medication includes clonidine 0.1mg qHS - Will continue to monitor blood pressure with daily vitals, consider resuming 10/20 - We have continued daily blood pressures, some of which have been mildly elevated but not consistently - Given increased fatigue and concern for falls related to intermittent unsteadiness with ambulation, will continue to hold clonidine at this time (4) Benzodiazepine abuse: 10/14 - Historical diagnosis of benzodiazepine abuse - Will not continue home dose of alprazolam - but will offer temazepam 15mg qHS for sleep as it has been effective - Will need to consider the safety of this medication regimen, and may suggest discontinuation of benzodiazepines at discharge given his history - Benzodiazepines are not recommended for the patient if he would be discharged to an unsupervised setting or expected to manage his own medication administration 10/16 -The patient is history of benzodiazepine abuse is noted. That history not withstanding, at seems apparent that the only hypnotic medication that has been consistently effective for this patient has been temazepam, and there is no evidence that he has been misusing this medication in the community prior to admission. -The material risks of temazepam, including but not limited to, risk of a physical habituation, risk of complicated and possibly fatal withdrawal symptoms, risk of accidents, falls and other injuries, as well as risk of worsening depression and clouded consciousness/cognitive impairment were reviewed with the patient, and he responded by saying, "I know. But it is the only thing that works. I really need to sleep, and without it the voices keep me awake all night." (5) Auditory hallucinations: 10/16 -Patient's chief complaint has to do with persistent persecutory auditory hallucinations. He describes the voices as being "electronically generated," and although he tells us that he does not know the source of the electronically generated voices, he says that he has no doubt that they are real and are coming from some entity that is trying to torture and/or kill him. His explanation for the suicide attempt was not that he has been depressed, but, instead, because he feels tortured by the voices and finds that he can no longer tolerate hearing them and no longer tolerate feeling terrorized by them. Patient also explains that he would rather at his own hand than risk being murdered by unknown forces and unknown means. -The patient's condition has been largely treatment resistant to psychiatric medications. With each antipsychotic medication mentioned, the patient's response has been to assert that the specific medicine mentioned has been tried and was not effective, or has been tried and caused worsening symptoms. Today, he asserts that he has taken clozapine in the past, but that it was not effective. He has unable to identify the dose, and does not recall when or where it was prescribed, but says that he believes that he took it for "a month or 2" before it was discontinued as ineffective. Other options for the patient might be a trial of perphenazine or loxapine. For now, the patient has indicated that he would prefer to remain on Geodon 80 mg twice a day. 3/ - Auditory hallucinations are ongoing. Pt does report that the voices are quieter, but when asked for how long he states "just now, since you asked" - Unclear how reliable patient's reports are on this topic, though it is anticipated ongoing titration of clozapine may be helpful for this Risk Factors Assessment Male: Yes : Yes Do You Have Access To A Gun?: No Health Problems: No Mental Health Diagnoses: Yes Substance Use Disorders: Yes Previous Attempt: Yes Family History of Suicide: Yes (cousin) Previous Psychiatric Hospitalization: Yes Hopelessness: Yes Protective Factors Assessment Ep[employer] Beliefs: No : No Responsible for Young Children: No Employed: No Stable Relationships: No Supportive Family: No Good Rapport with Provider: No Interval History Identifying Information SCOTT ROBERTO is a 74-year-old M who currently lives in [place] at the [facility]. Pt has a history of schizophrenia and this is his fourth psychiatric admission to our unit in roughly the last 7 months, with one admission to [facility] in that time as well. Pt was admitted on 10/14/19 12:33 on a 201 voluntary commitment after being treated on the medical floor since 10/09/2019 after an intentional Tylenol overdose. 306 conversion hearing was held on 10/16/2019 and his 305 IOC was converted to an inpatient commitment. Chief Complaint "The Clozaril, it makes me sleepy." Review of Systems Notes Constitutional: reports increased fatigue with titration of clozapine Cardiovascular: denied Respiratory: denied Gastrointestinal: denied Neurological: denied Psychiatric: denies symptoms other than stated above Total of at least 10 systems reviewed, pertinent positives as above and in HPI. Sleep Information Total Hours of Sleep: 7.5 Sleep Comments: . Meal Information Percent Meal Consumed - Breakfast: 100 Percent Meal Consumed - Lunch: 100 Percent Meal Consumed - Dinner: 100 Subjective Subjective Patient was seen & assessed and interval progress reviewed with treatment team. Staff report the patient continues to attend most of group programming and has been rather pleasant in interactions with peers and staff. Patient was seen today to assess progress since admission. He remains agreeable with continuing to titrate his dose of clozapine, though admits "the Clozaril, it makes me sleepy." We discussed that this is a common side effect of the medication, but that we also want to ensure patient is not sleeping frequently throughout the day. Patient states "oh, I like it. It really helps me." When asked how patient feels the new medication has been beneficial for him, he states "it helps me sleep more, sleep is important to you now." Patient was asked if there were other ways in which the medication is being helpful, to which he states "how would I know?" Patient was offered an example, and was asked if the voices were quieter. Patient responds in the affirmative, though when asked how long he has noticed the decreased volume, he states "just since you asked." Patient continues to find Cogentin helpful for what he describes as "jaw stiffness." Patient was agreeable with reducing his dose of ziprasidone and obtaining an EKG. He does admit to ongoing suicidal ideation, continuing to state that he would like to and that his life is not worth living. He denies other needs or concerns at this time. Physical Exam Psychiatric Orientation: alert, oriented x 3 and cooperative (Superficially) Apperance: appropriately dressed and appeared stated age; + inappropriately groomed (Hair appearing unkempt) Eye Contact: good eye contact Motor Behavior: steady gait and station and no abnormal motor movements Speech: normal rate/rhythm/volume of speech (Brief responses) Affect: + depressed affect and + flat affect; + mood not congruent with affect Mood: no depressed mood (Patient continues to deny depressed mood) Thought Process: goal directed thought process and + concrete thought process Thought Content: reality based without delusions, + hopelessness and + worthlessness Suicidal Thoughts: + reports suicidal thoughts Homicidal Thoughts: denies homicidal thoughts Hallucinations: + auditory hallucinations (Unclear if voices are becoming quieter since starting clozapine); no visual hallucinations Cognition: attention grossly intact and language grossly intact Insight: + impaired insight Judgement: + impaired judgement Vital Signs (Past 24 Hours) Last Vital Signs Temp 36.8 C 10/21/19 06:58 Pulse 79 10/21/19 06:58 Resp 16 10/21/19 06:58 BP 146/76 H 10/21/19 06:58 Results & Data ([facility]) Current Inpatient Medications Current Inpatient Medications: Current Inpatient Medications Al Hydrox/Mg Hydrox/Simethicone (Maalox) 30 ml PO Q4H PRN PRN Reason: GI Upset Stop: 11/13/19 13:39 Benztropine Mesylate (Cogentin) 0.5 mg PO Q6H PRN PRN Reason: dystonia Stop: 11/13/19 13:57 Last Admin: 10/19/19 14:34 Dose: 0.5 mg Documented by: Benztropine Mesylate (Cogentin) 0.5 mg PO BID17 MAG Stop: 11/18/19 16:59 Last Admin: 10/21/19 08:32 Dose: 0.5 mg Documented by: Bismuth Subsalicylate (Kaopectate) 15 ml PO PRN PRN PRN Reason: Loose Stool Stop: 11/13/19 13:39 Clozapine (Clozaril) 75 mg PO HS MAG; Taper; Protocol Stop: 11/26/19 21:59 Last Admin: 03/03/20 21:14 Dose: 75 mg Documented by: Docusate Sodium (Colace) 100 mg PO BID MAG Stop: 11/13/19 20:59 Last Admin: 10/21/19 08:33 Dose: 100 mg Documented by: Hydroxyzine HCl (Vistaril) 50 mg PO HSZ PRN PRN Reason: Insomnia Stop: 11/13/19 13:39 Hydroxyzine HCl (Vistaril) 25 mg PO Q4H PRN PRN Reason: Anxiety Stop: 11/13/19 13:39 Magnesium Hydroxide (Milk Of Magnesia) 30 ml PO DAILY PRN PRN Reason: Constipation Stop: 11/13/19 13:39 Magnesium Oxide (Mag-Ox) 400 mg PO DAILY MAG Stop: 11/14/19 08:59 Last Admin: 10/21/19 08:33 Dose: 400 mg Documented by: Polyethylene Glycol (Miralax Powder Packet) 17 gm PO DAILY MAG Stop: 11/14/19 08:59 Last Admin: 10/21/19 08:32 Dose: 17 gm Documented by: Potassium Chloride (Klor-Con M20) 20 meq PO DAILY MAG Stop: 11/14/19 08:59 Last Admin: 10/21/19 08:33 Dose: 20 meq Documented by: Senna/Docusate Sodium (Senokot S) 1 tab PO QAM MAG Stop: 11/14/19 08:59 Last Admin: 10/21/19 08:33 Dose: 1 tab Documented by: Sodium Chloride ([place] Nasal) 1 - 2 sprays NA PRN PRN PRN Reason: Nasal Dryness/Congestion Stop: 11/13/19 13:39 Temazepam (Restoril) 15 mg PO HSZ PRN PRN Reason: Insomnia Stop: 11/13/19 16:52 Last Admin: 10/20/19 21:17 Dose: 15 mg Documented by: Ziprasidone (Geodon) 80 mg PO BIDM MAG Stop: 11/13/19 17:44 Last Admin: 10/21/19 08:33 Dose: 80 mg Documented by: Mental Health & Subst Abuse Tx Therapist Name of Therapist: none Corporate Development Manager Name of Corporate Development Manager: Rae @ [facility] Post Discharge Appointments Primary Care Physician Name Of Family Doctor: Dr. Jeff Lopez (1) Schizophrenia Schizophrenia type: paranoid schizophrenia Qualified Code(s): F20.0 - Paranoid schizophrenia (2) Hypertension Hypertension type: essential hypertension Qualified Code(s): I10 - Essential (primary) hypertension
[2019-10-21] MEDS: cloZAPine 25 MG TAB PO SCH (21:02)
[2019-10-22] MEDS: POLYETHYLENE (MIRALAX) 17 GM PACK PO SCH (08:40)
[2019-10-22] MEDS: MAGNESIUM OXIDE 400 MG TAB PO SCH (08:41)
[2019-10-22] MEDS: POTASSIUM CHLORIDE 20 MEQ TABCR PO SCH (08:42)
[2019-10-22] MEDS: BENZTROPINE MESYLATE 0.5 MG TAB PO SCH ×2 (08:42→17:33)
[2019-10-22] MEDS: DOCUSATE SODIUM/SENNA 50/8.6MG TAB PO SCH (08:42)
[2019-10-22] MEDS: DOCUSATE SODIUM 100 MG CAP PO SCH ×2 (08:42→20:57)
--- NOTE | 2019-10-22 09:47 | Psychiatric Progress Note ---
Date of Service October 22, 2019 Impression / Recommendations Impression 74-year-old male with chronic schizophrenia who presented 10/08/2019 after he was found unresponsive at the [facility] and admitted to taking a Tylenol overdose in an attempt to end his life. Admitted to the hospitalist service for 6 days, and transferred voluntarily to our unit on 10/14/19. He was on an involuntary 305 outpatient commitment converted to inpatient on 10/16/19. He sustained hepatic damage with significant elevations in AST and ALT, and we are continuing to follow those for resolution. All of his medications were held on the medical service, with ziprasidone being re-titrated at time of transfer to our unit. Mirtazapine and Xanax were discontinued as he reported they were ineffective. He was started on temazepam while on the hospitalist service for reports of poor sleep, and this medication has appeared to be effective - will need to determine discharge plans given history of benzodiazepine abuse; however, patient is likely to be discharged back to his [facility] where medication can be monitored. Pt did consent to retrial of Clozaril starting 10/17, with dose scheduled to increase by 25mg each evening until effective dose is achieved. Pt continues to report AH and suicidal ideation, stating he is unable to contract for safety outside of the hospital setting at this time. (1) Schizophrenia: 10/14 - Continue ziprasidone as initiated on the medical floor - resume 80mg BID dosing with meals - Continue benztropine 0.5mg as needed for reports of stiffness, though it remains unclear if this is truly related to his antipsychotic medication - Mirtazapine was discontinued on the medical floor as patient feels it had been ineffective - Continue temazepam 15mg qHS for sleep - at least while hospitalized in a supervised setting, as patient has a history of benzodiazepine abuse - Will coordinate treatment with patient's outpatient psychiatric supports - Encourage participation in group and recreational programming 10/15 -Continue ziprasidone; reviewed fasting lipid profile and fasting glucose from 02/2019, all values were within normal limits. -Discussed trial of clozapine; patient states that he believes he was on this medication in the past and that it was ineffective. Continue to provide education and encourage retrial, as he has had limited response to multiple other antipsychotics, and it would also help address suicidal thoughts in addition to psychosis. -Involve outpatient case advocate and coordinate with psychiatrist, Dr. Alves. 10/16 -The plan is to continue ziprasidone 80 mg twice a day. We discussed other treatment options with the patient, and he says that he is not interested in trying the various options suggested. He tends to respond in the affirmative every time he is asked whether he has ever taken a number of specific medications, and replies in each instance "it did not help." He does say, somewhat convincingly, that he took clozapine (dose unspecified and unknown by the patient) a number of years ago for "a month or 2," and that it did not help. Re-challenging the patient with clozapine may be helpful, but at present the patient indicates that he will refuse to take it. -The patient hesitates when asked about loxapine and perphenazine, but then says that he has taken both. Loxapine is not on the hospital formulary. Today, the patient says that he is not interested in trying either of these medications "again." -Today, the patient tells us that he "really does not" want to go to the [facility] ("[facility] although he had previously said that he might be interested in doing that. He adds that he does feel safer in a hospital, but feels that he would like to work towards being able to be discharged back to the community at this point. 10/17 --reconsented for retrial of Clozaril following review of CBC and EKG, patient aware to monitor constipation and sialorrhea and notify staff. will dose at hs and titrate by 25 mg nightly, repeat CBC in 1 week. 10/18--titrate Clozaril to 50 mg po qhs, Dr. Campos notified to consider EKG for repeat QTC on med combo as dose is increased, EPS apparently predates start of Clozaril and is not new, he is agreeable to add 0.5 mg Cogentin standing order as trial basis. 10/19 - Continue clozapine titration (now ordered for automatic titration of 25mg each evening), pt to receive 75mg tonight - Pt reports his condition remains unchanged at this time, but is aware that clozapine will need to be titrated to an effective dose range - At this time, patient maintains his desire would be for eventual discharge back to the [facility] - no longer requesting [facility] referral - He remains suicidal and continues to report head buzzing and auditory hallucinations that are overwhelming to him 3/4 - Continue clozapine titration - pt to receive 100mg tonight - Will reduce ziprasidone to 60mg BID given continued titration of clozapine and reported ineffectiveness of the medication - will order an EKG for tomorrow morning, given cross-titration putting patient at increased risk of QTc prolongation. - Ongoing discussions regarding discharge planning - Pt continues to verbalize SI and feels he cannot contract for safety outside of the hospital setting 10/21 - Clozapine to be titrated to 125mg this evening; will continue ziprasidone 60mg BID for now though can consider ongoing taper - EKG ordered this morning, and reviewed QTc 445 - Reports ongoing SI - stating he is "pretty d*mn close" to wanting to - Discharge planning meeting scheduled for tomorrow (2) Tylenol overdose: 10/14 - Continue management per medical team - Recheck LFTs tomorrow morning. Today, AST 70, ALT 631. 10/15 -Continue to trend down. AST 54, ALT 538. We will reorder LFTs for Saturday. Avoid hepatotoxic agents. 10/16 -Patient reports that he remains suicidal and confirms that his overdose of Tylenol was taken with the intent of causing his own . (3) Hypertension: 10/14 - Home medication includes clonidine 0.1mg qHS - Will continue to monitor blood pressure with daily vitals, consider resuming 10/20 - We have continued daily blood pressures, some of which have been mildly elevated but not consistently - Given increased fatigue and concern for falls related to intermittent unsteadiness with ambulation, will continue to hold clonidine at this time (4) Benzodiazepine abuse: 10/14 - Historical diagnosis of benzodiazepine abuse - Will not continue home dose of alprazolam - but will offer temazepam 15mg qHS for sleep as it has been effective - Will need to consider the safety of this medication regimen, and may suggest discontinuation of benzodiazepines at discharge given his history - Benzodiazepines are not recommended for the patient if he would be discharged to an unsupervised setting or expected to manage his own medication administration 10/16 -The patient is history of benzodiazepine abuse is noted. That history not withstanding, at seems apparent that the only hypnotic medication that has been consistently effective for this patient has been temazepam, and there is no evidence that he has been misusing this medication in the community prior to admission. -The material risks of temazepam, including but not limited to, risk of a physical habituation, risk of complicated and possibly fatal withdrawal symptoms, risk of accidents, falls and other injuries, as well as risk of worsening depression and clouded consciousness/cognitive impairment were reviewed with the patient, and he responded by saying, "I know. But it is the only thing that works. I really need to sleep, and without it the voices keep me awake all night." (5) Auditory hallucinations: 10/16 -Patient's chief complaint has to do with persistent persecutory auditory hallucinations. He describes the voices as being "electronically generated," and although he tells us that he does not know the source of the electronically generated voices, he says that he has no doubt that they are real and are coming from some entity that is trying to torture and/or kill him. His explanation for the suicide attempt was not that he has been depressed, but, instead, because he feels tortured by the voices and finds that he can no longer tolerate hearing them and no longer tolerate feeling terrorized by them. Patient also explains that he would rather at his own hand than risk being murdered by unknown forces and unknown means. -The patient's condition has been largely treatment resistant to psychiatric medications. With each antipsychotic medication mentioned, the patient's response has been to assert that the specific medicine mentioned has been tried and was not effective, or has been tried and caused worsening symptoms. Today, he asserts that he has taken clozapine in the past, but that it was not effective. He has unable to identify the dose, and does not recall when or where it was prescribed, but says that he believes that he took it for "a month or 2" before it was discontinued as ineffective. Other options for the patient might be a trial of perphenazine or loxapine. For now, the patient has indicated that he would prefer to remain on Geodon 80 mg twice a day. 3/4 - Auditory hallucinations are ongoing. Pt does report that the voices are quieter, but when asked for how long he states "just now, since you asked" - Unclear how reliable patient's reports are on this topic, though it is anticipated ongoing titration of clozapine may be helpful for this 3/5 - Pt more focused on "head buzzing" today, does not mention auditory hallucinations today though this does not mean he is not experiencing them Risk Factors Assessment Male: Yes : Yes Do You Have Access To A Gun?: No Health Problems: No Mental Health Diagnoses: Yes Substance Use Disorders: Yes Previous Attempt: Yes Family History of Suicide: Yes (cousin) Previous Psychiatric Hospitalization: Yes Hopelessness: Yes Protective Factors Assessment Jehovah'S Witness Beliefs: No : No Responsible for Young Children: No Employed: No Stable Relationships: No Supportive Family: No Good Rapport with Provider: No Interval History Identifying Information SCOTT ROBERTO is a 74-year-old M who currently lives in [place] at the [facility]. Pt has a history of schizophrenia and this is his fourth psychiatric admission to our unit in roughly the last 7 months, with one admission to [facility] in that time as well. Pt was admitted on 10/14/19 12:33 on a 201 voluntary commitment after being treated on the medical floor since 10/09/2019 after an intentional Tylenol overdose. 306 conversion hearing was held on 10/16/2019 and his 305 IOC was converted to an inpatient commitment. Chief Complaint "Not very good right now." Review of Systems Notes Constitutional: reports worsening "head buzzing" today Cardiovascular: denied Respiratory: denied Gastrointestinal: denied Neurological: denied Psychiatric: denies symptoms other than stated above Total of at least 10 systems reviewed, pertinent positives as above and in HPI. Sleep Information Total Hours of Sleep: 8 Sleep Comments: . Meal Information Percent Meal Consumed - Breakfast: 100 Percent Meal Consumed - Lunch: 100 Percent Meal Consumed - Dinner: 100 Subjective Subjective Patient was seen & assessed and interval progress reviewed with nursing and social work. Staff report the patient has been reporting good sleep since starting clozapine, actually not requesting his prn dose of temazepam last evening. Pt reportedly told the nurses he felt his medications were working. There is an outpatient support update meeting scheduled for tomorrow. Pt was seen today to assess progress since admission. Pt is observed to be in his room alone, while the remainder of the milieu is in activity group. Pt states "I'm not very good right now", stating that his "head buzzing" is very loud at this time. He states there is nothing staff can do at this time to assist him. Pt was asked if group tends to offer distraction from the severity of the noise, to which he responds simply by saying "more than anything, I don't care to watch bowling." Pt states that he is unable to tell if the worsening "head buzzing" is in any way related to initiation and titration of the clozapine. Pt reports that he remains optimistic that the medication will work, and is "just waiting." Pt states that he is "frustrated" with these experiences and when asked about the presence of suicidal thoughts, he states "I'm pretty d*mn close." Pt admits he would not feel safe outside of the hospital, but then states "you have to send me home soon." Pt was asked what he meant by this, and was reminded that we wish to continue to work with him until he is able to contract for safety outside of the hospital. Pt states "I get confused. I'm sorry, I don't remember what I was trying to say." Pt denies other needs or concerns today. Physical Exam Psychiatric Orientation: alert, oriented x 3 and + guarded Apperance: appropriately dressed and appeared stated age; + inappropriately groomed (appearing more unkempt than is usual for him) Eye Contact: good eye contact Motor Behavior: no abnormal motor movements (observed while laying in bed) Speech: normal rate/rhythm/volume of speech (vague, brief responses to questions) Affect: + depressed affect and + flat affect; + mood not congruent with affect Mood: no depressed mood (continues to deny depressed mood) Thought Process: clear/coherent thought process and + concrete thought process Thought Content: reality based without delusions and + hopelessness (reporting continued frustration with his "head buzzing") Suicidal Thoughts: + reports suicidal thoughts ("I'm pretty d*mn close") and + reports suicidal intent Reports high likelihood of acting on thoughts if not hospitalized, but does report feeling safe on the unit Homicidal Thoughts: denies homicidal thoughts Hallucinations: + auditory hallucinations (voices and "head buzzing" are ongo ing); no visual hallucinations Cognition: attention grossly intact and language grossly intact Insight: + impaired insight Judgement: + impaired judgement Vital Signs (Past 24 Hours) Last Vital Signs Temp 36.6 C 10/22/19 06:00 Pulse 94 H 10/22/19 06:00 Resp 18 10/22/19 06:00 BP 163/92 H 10/22/19 06:00 Results & Data ([facility]) Current Inpatient Medications Current Inpatient Medications: Current Inpatient Medications Al Hydrox/Mg Hydrox/Simethicone (Maalox) 30 ml PO Q4H PRN PRN Reason: GI Upset Stop: 11/13/19 13:39 Benztropine Mesylate (Cogentin) 0.5 mg PO Q6H PRN PRN Reason: dystonia Stop: 11/13/19 13:57 Last Admin: 10/19/19 14:34 Dose: 0.5 mg Documented by: Benztropine Mesylate (Cogentin) 0.5 mg PO BID17 MAG Stop: 11/18/19 16:59 Last Admin: 10/22/19 08:42 Dose: 0.5 mg Documented by: Bismuth Subsalicylate (Kaopectate) 15 ml PO PRN PRN PRN Reason: Loose Stool Stop: 11/13/19 13:39 Clozapine (Clozaril) 100 mg PO HS MAG; Taper; Protocol Stop: 11/26/19 21:59 Last Admin: 10/21/19 21:02 Dose: 100 mg Documented by: Docusate Sodium (Colace) 100 mg PO BID MAG Stop: 11/13/19 20:59 Last Admin: 10/22/19 08:42 Dose: 100 mg Documented by: Hydroxyzine HCl (Vistaril) 50 mg PO HSZ PRN PRN Reason: Insomnia Stop: 11/13/19 13:39 Hydroxyzine HCl (Vistaril) 25 mg PO Q4H PRN PRN Reason: Anxiety Stop: 11/13/19 13:39 Magnesium Hydroxide (Milk Of Magnesia) 30 ml PO DAILY PRN PRN Reason: Constipation Stop: 11/13/19 13:39 Magnesium Oxide (Mag-Ox) 400 mg PO DAILY [facility] Stop: 11/14/19 08:59 Last Admin: 10/22/19 08:41 Dose: 400 mg Documented by: Polyethylene Glycol (Miralax Powder Packet) 17 gm PO DAILY [facility] Stop: 11/14/19 08:59 Last Admin: 10/22/19 08:40 Dose: 17 gm Documented by: Potassium Chloride (Klor-Con M20) 20 meq PO DAILY MAG Stop: 11/14/19 08:59 Last Admin: 10/22/19 08:42 Dose: 20 meq Documented by: Senna/Docusate Sodium (Senokot S) 1 tab PO QAM MAG Stop: 11/14/19 08:59 Last Admin: 10/22/19 08:42 Dose: 1 tab Documented by: Sodium Chloride ([place] Nasal) 1 - 2 sprays NA PRN PRN PRN Reason: Nasal Dryness/Congestion Stop: 11/13/19 13:39 Temazepam (Restoril) 15 mg PO HSZ PRN PRN Reason: Insomnia Stop: 11/13/19 16:52 Last Admin: 10/20/19 21:17 Dose: 15 mg Documented by: Ziprasidone (Geodon) 60 mg PO BIDM MAG Stop: 11/20/19 17:44 Last Admin: 10/22/19 08:41 Dose: 60 mg Documented by: Mental Health & Subst Abuse Tx Therapist Name of Therapist: none Electrophysiologist Name of Electrophysiologist: Rae @ [facility] Post Discharge Appointments Primary Care Physician Name Of Family Doctor: Dr. Jeff Lopez (1) Schizophrenia Schizophrenia type: paranoid schizophrenia Qualified Code(s): F20.0 - Paranoid schizophrenia (2) Hypertension Hypertension type: essential hypertension Qualified Code(s): I10 - Essential (primary) hypertension
--- NOTE | 2019-10-22 18:05 | Electrocardiogram Report ---
Test Reason : Blood Pressure : / mmHG Vent. Rate : 103 BPM Atrial Rate : 103 BPM P-R Int : 164 ms QRS Dur : 086 ms QT Int : 340 ms P-R-T Axes : 055 052 074 degrees QTc Int : 445 ms Sinus tachycardia Nonspecific ST abnormality Abnormal ECG When compared with ECG of 13-OCT-2019 10:15, No significant change was found Confirmed by Tarik Marrero ([id number]) on 10/22/2019 6:04:53 PM Referred By: Alison Campos Confirmed By:Tarik Marrero
[2019-10-22] MEDS: cloZAPine 25 MG TAB PO SCH (20:57)
[2019-10-23] MEDS: POLYETHYLENE (MIRALAX) 17 GM PACK PO SCH (09:07)
[2019-10-23] MEDS: DOCUSATE SODIUM 100 MG CAP PO SCH ×2 (09:07→21:06)
[2019-10-23] MEDS: POTASSIUM CHLORIDE 20 MEQ TABCR PO SCH (09:07)
[2019-10-23] MEDS: MAGNESIUM OXIDE 400 MG TAB PO SCH (09:07)
[2019-10-23] MEDS: BENZTROPINE MESYLATE 0.5 MG TAB PO SCH (09:09)
[2019-10-23] MEDS: DOCUSATE SODIUM/SENNA 50/8.6MG TAB PO SCH (09:11)
[2019-10-23] MEDS ORDERED: TEMAZEPAM 15 MG CAPSULE PO PRN ×2 (13:46→14:00)
[2019-10-23] MEDS ORDERED: TEMAZEPAM 7.5 MG CAPSULE PO PRN (13:51)
[2019-10-23] MEDS ORDERED: TRIHEXYPHENIDYL HCL 2 MG TAB PO ONE (14:00)
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
[2019-10-23 17:02] LABS: Appearance Urine Turbid (Clear); Bacteria Urine Automated Negative (Negative); Bilirubin Urine Negative (Negative); Blood Urine Negative (Negative); Cast Urine Automated 0 /lpf (0-5); Color Urine Yellow; Epithelial Cell Urine Auto 0-5 /lpf (0-5); Glucose Urine UA Negative (Negative); Ketones Urine Negative (Negative); Leukocyte Esterase Urine Trace (Negative); Nitrite Urine Negative (Negative); Protein Urine Negative (Negative); Specific Gravity Urine 1.017 (1.000-1.030); Urobilinogen Urine Negative (Negative); pH Urine 7.5 (4.5-7.5)
[2019-10-23] MEDS ORDERED: TRIHEXYPHENIDYL HCL 2 MG TAB PO SCH (21:00)
[2019-10-23] MEDS: TRIHEXYPHENIDYL HCL 2 MG TAB PO SCH (21:07)
[2019-10-23] MEDS ORDERED: cloZAPine 100 MG TAB PO SCH (22:00)
--- NOTE | 2019-10-24 08:31 | Psychiatric Progress Note ---
Date of Service October 24, 2019 Impression / Recommendations Impression 74-year-old male with chronic schizophrenia who presented 10/08/2019 after he was found unresponsive at the [facility] and admitted to taking a Tylenol overdose in an attempt to end his life. Admitted to the hospitalist service for 6 days, and transferred voluntarily to our unit on 10/14/19. He was on an involuntary 305 outpatient commitment converted to inpatient on 10/16/19. He sustained hepatic damage with significant elevations in AST and ALT, and we are continuing to follow those for resolution. All of his medications were held on the medical service, with ziprasidone being re-titrated at time of transfer to our unit. Mirtazapine and Xanax were discontinued as he reported they were ineffective. He was started on temazepam while on the hospitalist service for reports of poor sleep, and this medication has appeared to be effective - will need to determine discharge plans given history of benzodiazepine abuse; however, patient is likely to be discharged back to his [facility] where medication can be monitored. Pt did consent to retrial of Clozaril starting 10/17, with titration as tolerated. Pt continues to report AH and suicidal ideation, stating he is unable to contract for safety outside of the hospital setting at this time. The patient does present with some cogwheel rigidity, and there is been several instances in which he has made a phasic mistakes or appeared to be somewhat confused. We are making medication adjustments that included the discontinuation of Geodon (given some improvement noticed when we held Geodon) and will continue to titrate clozapine, as tolerated. Pt has also been receiving trihexyphenidyl for EPS, titrating this medication as needed as well. (1) Schizophrenia: 10/14 - Continue ziprasidone as initiated on the medical floor - resume 80mg BID dosing with meals - Continue benztropine 0.5mg as needed for reports of stiffness, though it remains unclear if this is truly related to his antipsychotic medication - Mirtazapine was discontinued on the medical floor as patient feels it had been ineffective - Continue temazepam 15mg qHS for sleep - at least while hospitalized in a supervised setting, as patient has a history of benzodiazepine abuse - Will coordinate treatment with patient's outpatient psychiatric supports - Encourage participation in group and recreational programming 10/15 -Continue ziprasidone; reviewed fasting lipid profile and fasting glucose from 02/2019, all values were within normal limits. -Discussed trial of clozapine; patient states that he believes he was on this medication in the past and that it was ineffective. Continue to provide education and encourage retrial, as he has had limited response to multiple other antipsychotics, and it would also help address suicidal thoughts in addition to psychosis. -Involve outpatient case hardener and coordinate with psychiatrist, Dr. Alves. 10/16 -The plan is to continue ziprasidone 80 mg twice a day. We discussed other treatment options with the patient, and he says that he is not interested in trying the various options suggested. He tends to respond in the affirmative every time he is asked whether he has ever taken a number of specific medications, and replies in each instance "it did not help." He does say, somewhat convincingly, that he took clozapine (dose unspecified and unknown by the patient) a number of years ago for "a month or 2," and that it did not help. Re-challenging the patient with clozapine may be helpful, but at present the patient indicates that he will refuse to take it. -The patient hesitates when asked about loxapine and perphenazine, but then says that he has taken both. Loxapine is not on the hospital formulary. Today, the patient says that he is not interested in trying either of these medications "again." -Today, the patient tells us that he "really does not" want to go to the [facility] although he had previously said that he might be interested in doing that. He adds that he does feel safer in a hospital, but feels that he would like to work towards being able to be discharged back to the community at this point. 10/17 --reconsented for retrial of Clozaril following review of CBC and EKG, patient aware to monitor constipation and sialorrhea and notify staff. will dose at hs and titrate by 25 mg nightly, repeat CBC in 1 week. 3--titrate Clozaril to 50 mg po qhs, Dr. Campos notified to consider EKG for repeat QTC on med combo as dose is increased, EPS apparently predates start of Clozaril and is not new, he is agreeable to add 0.5 mg Cogentin standing order as trial basis. 3 - Continue clozapine titration (now ordered for automatic titration of 25mg each evening), pt to receive 75mg tonight - Pt reports his condition remains unchanged at this time, but is aware that clozapine will need to be titrated to an effective dose range - At this time, patient maintains his desire would be for eventual discharge back to the [facility] - no longer requesting [facility] referral - He remains suicidal and continues to report head buzzing and auditory hallucinations that are overwhelming to him 10/20 - Continue clozapine titration - pt to receive 100mg tonight - Will reduce ziprasidone to 60mg BID given continued titration of clozapine and reported ineffectiveness of the medication - will order an EKG for tomorrow morning, given cross-titration putting patient at increased risk of QTc prolongation. - Ongoing discussions regarding discharge planning - Pt continues to verbalize SI and feels he cannot contract for safety outside of the hospital setting 10/21 - Clozapine to be titrated to 125mg this evening; will continue ziprasidone 60mg BID for now though can consider ongoing taper - EKG ordered this morning, and reviewed QTc 445 - Reports ongoing SI - stating he is "pretty d*mn close" to wanting to - Discharge planning meeting scheduled for tomorrow 10/22 -Discharge remaining has been postponed. -Ziprasidone was held this morning, and the patient's cognition seems to have cleared. He is fully oriented and has not shown evidence of confusion. The patient, himself, notes that his thinking does seem to be more clear than it had been. -We will further titrate clozapine 250 mg at bedtime and 25 mg in the morning. -Because of persistent disturbing auditory hallucinations that the patient reports prevent him from easily inducing and maintaining sleep we will increase his dose of temazepam from 15 mg at bedtime for sleep to a dose of 22.5 mg at bedtime as needed sleep. -Although the patient's cognition seems to have improved, staff recall that during at least 1 previous admission the patient had similar mental status alterations and a urinary tract infection was found to been contributory. For that reason, we have ordered a urinalysis. -The patient has been demonstrating a shuffling gait, and on testing today a substantial degree of cogwheel rigidity was noted. The patient also reports a feeling "jumpy" and "restless." He had been receiving benztropine 0.5 mg twice a day, and while this may have been helpful, it seems not to have been fully effective. We will try trihexyphenidyl 2 mg stat and then 2 mg twice a day, and titrate further as indicated. 10/23 - Titrate clozapine to 25mg qAM and 200mg qHS - continue to hold ziprasidone at this time - Pt continues to reports stiffness and difficulty with ambulation, given that we are continuing to titrate clozapine we will order an additional prn dose of trihexyphenidyl 2mg with consideration to schedule the dose if necessary - UA results reviewed - no indication for current UTI - Will need to continue to discuss appropriate discharge timeline - patient remains suicidal (2) Tylenol overdose: 10/14 - Continue management per medical team - Recheck LFTs tomorrow morning. Today, AST 70, ALT 631. 10/15 -Continue to trend down. AST 54, ALT 538. We will reorder LFTs for Saturday. Avoid hepatotoxic agents. 10/16 -Patient reports that he remains suicidal and confirms that his overdose of Tylenol was taken with the intent of causing his own . (3) Hypertension: 10/14 - Home medication includes clonidine 0.1mg qHS - Will continue to monitor blood pressure with daily vitals, consider resuming 10/20 - We have continued daily blood pressures, some of which have been mildly elevated but not consistently - Given increased fatigue and concern for falls related to intermittent unsteadiness with ambulation, will continue to hold clonidine at this time 10/22 -Today, the patient's blood pressure is within normal limits. (4) Benzodiazepine abuse: 10/14 - Historical diagnosis of benzodiazepine abuse - Will not continue home dose of alprazolam - but will offer temazepam 15mg qHS for sleep as it has been effective - Will need to consider the safety of this medication regimen, and may suggest discontinuation of benzodiazepines at discharge given his history - Benzodiazepines are not recommended for the patient if he would be discharged to an unsupervised setting or expected to manage his own medication administration 10/16 -The patient is history of benzodiazepine abuse is noted. That history not withstanding, at seems apparent that the only hypnotic medication that has been consistently effective for this patient has been temazepam, and there is no evidence that he has been misusing this medication in the community prior to admission. -The material risks of temazepam, including but not limited to, risk of a physical habituation, risk of complicated and possibly fatal withdrawal symptoms, risk of accidents, falls and other injuries, as well as risk of worsening depression and clouded consciousness/cognitive impairment were reviewed with the patient, and he responded by saying, "I know. But it is the only thing that works. I really need to sleep, and without it the voices keep me awake all night." 10/22 -The patient's history of benzodiazepine continues to be noted. However, the patient's current condition, we continue to feel that the use of temazepam for sleep is medically necessary and appropriate. (5) Auditory hallucinations: 10/16 -Patient's chief complaint has to do with persistent persecutory auditory hallucinations. He describes the voices as being "electronically generated," and although he tells us that he does not know the source of the electronically generated voices, he says that he has no doubt that they are real and are coming from some entity that is trying to torture and/or kill him. His explanation for the suicide attempt was not that he has been depressed, but, instead, because he feels tortured by the voices and finds that he can no longer tolerate hearing them and no longer tolerate feeling terrorized by them. Patient also explains that he would rather at his own hand than risk being murdered by unknown forces and unknown means. -The patient's condition has been largely treatment resistant to psychiatric medications. With each antipsychotic medication mentioned, the patient's response has been to assert that the specific medicine mentioned has been tried and was not effective, or has been tried and caused worsening symptoms. Today, he asserts that he has taken clozapine in the past, but that it was not effective. He has unable to identify the dose, and does not recall when or where it was prescribed, but says that he believes that he took it for "a month or 2" before it was discontinued as ineffective. Other options for the patient might be a trial of perphenazine or loxapine. For now, the patient has indicated that he would prefer to remain on Geodon 80 mg twice a day. 3/4 - Auditory hallucinations are ongoing. Pt does report that the voices are quieter, but when asked for how long he states "just now, since you asked" - Unclear how reliable patient's reports are on this topic, though it is anticipated ongoing titration of clozapine may be helpful for this 3/5 - Pt more focused on "head buzzing" today, does not mention auditory hallucinations today though this does not mean he is not experiencing them /6 -Today, the patient reports that he is troubled both by "a buzzing sound" in both ears, as well as by voices". He tells us that he believes that the voices are being generated by a computer and that the threats that are made through the's "voices" are genuine and represent a mortal danger. He insists that he is being told that he is going to be murdered. -I tried to talk to the patient about the fact that his records, going back many years, speak to the presence of similar perceptual disturbances and similar believes. The patient responds by saying, "they have come close to killing me a number of times. 1 of these days they are going to do it!" -We are discontinuing Geodon today and will be increasing his dose of clozapi ne, beginning tonight. The new dose of clozapine will be 150 mg at bedtime and 25 mg in the morning. We expect that we will need to continue to titrate. We will also reintroduce clozapine, albeit at a lower dose, should his psychiatric condition worsen. Our concern at this point is excess sedation associated with our current cross titration of Geodon and clozapine. 10/23 - Pt denies significant change from above at this time Risk Factors Assessment Male: Yes : Yes Do You Have Access To A Gun?: No Health Problems: No Mental Health Diagnoses: Yes Substance Use Disorders: Yes Previous Attempt: Yes Family History of Suicide: Yes (cousin) Previous Psychiatric Hospitalization: Yes Hopelessness: Yes Protective Factors Assessment Zoroastrianism Beliefs: No : No Responsible for Young Children: No Employed: No Stable Relationships: No Supportive Family: No Good Rapport with Provider: No Interval History Identifying Information SCOTT ROBERTO is a 74-year-old M who currently lives in [place] at the [facility]. Pt has a history of schizophrenia and this is his fourth psychiatric admission to our unit in roughly the last 7 months, with one admission to [facility] in that time as well. Pt was admitted on 10/14/19 12:33 on a 201 voluntary commitment after being treated on the medical floor since 10/09/2019 after an intentional Tylenol overdose. 306 conversion hearing was held on 10/16/2019 and his [facility] was converted to an inpatient commitment. Chief Complaint "Not too well." Review of Systems Notes Constitutional: reports generalized stiffness and "not able to walk too well" Cardiovascular: denied Respiratory: denied Gastrointestinal: denied Neurological: denied Psychiatric: denies symptoms other than stated above Total of at least 10 systems reviewed, pertinent positives as above and in HPI. Sleep Information Total Hours of Sleep: 8.5 Sleep Comments: . Meal Information Percent Meal Consumed - Breakfast: 50 Percent Meal Consumed - Lunch: 100 Percent Meal Consumed - Dinner: 100 Subjective Subjective Patient was seen & assessed and interval progress reviewed with nursing and social work. Staff report the patient has been ambulating better with recent medication adjustments. He did attend some group programming this evening. Pt was seen today to assess progress since admission. Pt states he is "not too well" today, indicating no significant change in his condition since his admission. Pt states that the head buzzing and voices continue to be disruptive and he is not yet feeling the clozapine to be effective. Despite this, he remains agreeable with continuing to titrate the medication to a more effective dose range. Pt continues to report suicidality - stating the severity of this is largely unchanged from admission. He denies other needs or concerns today. Physical Exam Psychiatric Orientation: alert, oriented x 3 and cooperative (superficially) Apperance: appropriately dressed and + disheveled (grooming and hygiene appear to be less attended to this stay) Eye Contact: + fair eye contact Speech: normal rate/rhythm/volume of speech (brief responses to questions) Affect: + flat affect Mood: + depressed mood ("Not too well") Thought Process: + concrete thought process Thought Content: reality based without delusions, + hopelessness and + worthlessness Suicidal Thoughts: + reports suicidal thoughts and + reports suicidal intent Homicidal Thoughts: denies homicidal thoughts Hallucinations: + auditory hallucinations (ongoing voices and head buzzing); no visual hallucinations Cognition: attention grossly intact and language grossly intact Insight: + impaired insight Judgement: + impaired judgement Vital Signs (Past 24 Hours) Last Vital Signs Temp 36.4 C L 10/24/19 07:00 Pulse 92 H 10/24/19 07:01 Resp 18 10/24/19 07:00 BP 126/77 10/24/19 07:01 Pulse Ox 96 10/22/19 23:30 Results & Data ([facility]) Laboratory Results Laboratory Results - last 24 hr 10/23/19 16:41 Urine Color Yellow Urine Appearance Turbid A Urine pH 7.5 Ur Specific [place] 1.017 Urine Protein Negative Urine Glucose (UA) Negative Urine Ketones Negative Urine Blood Negative Urine Nitrite Negative Urine Bilirubin Negative Urine Urobilinogen Negative Ur Leukocyte Esterase Trace H Urine WBC (Auto) 1-5 Urine RBC (Auto) 5-10 H U Hyaline Cast (Auto) 0 U Epithel Cells (Auto) 0-5 Urine Bacteria (Auto) Negative Current Inpatient Medications Current Inpatient Medications: Current Inpatient Medications Al Hydrox/Mg Hydrox/Simethicone (Maalox) 30 ml PO Q4H PRN PRN Reason: GI Upset Stop: 11/13/19 13:39 Bismuth Subsalicylate (Kaopectate) 15 ml PO PRN PRN PRN Reason: Loose Stool Stop: 11/13/19 13:39 Clozapine (Clozapine) 150 mg PO HS MAG Stop: 11/22/19 21:59 Last Admin: 10/23/19 21:08 Dose: 150 mg Documented by: Clozapine (Clozaril) 25 mg PO DAILY [facility] Stop: 11/23/19 08:59 Docusate Sodium (Colace) 100 mg PO BID [facility] Stop: 11/13/19 20:59 Last Admin: 10/23/19 21:06 Dose: 100 mg Documented by: Hydroxyzine HCl (Vistaril) 50 mg PO HSZ PRN PRN Reason: Insomnia Stop: 11/13/19 13:39 Hydroxyzine HCl (Vistaril) 25 mg PO Q4H PRN PRN Reason: Anxiety Stop: 11/13/19 13:39 Magnesium Hydroxide (Milk Of Magnesia) 30 ml PO DAILY PRN PRN Reason: Constipation Stop: 11/13/19 13:39 Magnesium Oxide (Mag-Ox) 400 mg PO DAILY [facility] Stop: 11/14/19 08:59 Last Admin: 10/23/19 09:07 Dose: 400 mg Documented by: Polyethylene Glycol (Miralax Powder Packet) 17 gm PO DAILY MAG Stop: 11/14/19 08:59 Last Admin: 10/23/19 09:07 Dose: 17 gm Documented by: Potassium Chloride (Klor-Con M20) 20 meq PO DAILY [facility] Stop: 11/14/19 08:59 Last Admin: 03/06/20 09:07 Dose: 20 meq Documented by: Senna/Docusate Sodium (Senokot S) 1 tab PO QAM MAG Stop: 11/14/19 08:59 Last Admin: 10/23/19 09:11 Dose: 1 tab Documented by: Sodium Chloride (Assumption Nasal) 1 - 2 sprays NA PRN PRN PRN Reason: Nasal Dryness/Congestion Stop: 11/13/19 13:39 Temazepam (Restoril) 15 mg PO HSZ PRN PRN Reason: Insomnia Stop: 11/22/19 13:45 Last Admin: 10/23/19 21:15 Dose: 15 mg Documented by: Temazepam (Restoril) 7.5 mg PO HSZ PRN PRN Reason: Insomnia Stop: 11/22/19 13:50 Trihexyphenidyl HCl (Artane) 2 mg PO BID MAG Stop: 11/22/19 20:59 Last Admin: 10/23/19 21:07 Dose: 2 mg Documented by: Mental Health & Subst Abuse Tx Therapist Name of Therapist: none Pets Salesperson Name of Pets Salesperson: Rae @ [facility] Post Discharge Appointments Primary Care Physician Name Of Family Doctor: Dr. Jeff Lopez (1) Schizophrenia Schizophrenia type: paranoid schizophrenia Qualified Code(s): F20.0 - Paranoid schizophrenia (2) Hypertension Hypertension type: essential hypertension Qualified Code(s): I10 - Essential (primary) hypertension
[2019-10-24] MEDS ORDERED: TEMAZEPAM 15 MG CAPSULE PO PRN (08:52)
[2019-10-24] MEDS: TRIHEXYPHENIDYL HCL 2 MG TAB PO SCH ×3 (08:55→21:04)
[2019-10-24] MEDS: MAGNESIUM OXIDE 400 MG TAB PO SCH (08:55)
[2019-10-24] MEDS: DOCUSATE SODIUM/SENNA 50/8.6MG TAB PO SCH (08:55)
[2019-10-24] MEDS: DOCUSATE SODIUM 100 MG CAP PO SCH ×2 (08:55→21:04)
[2019-10-24] MEDS: POLYETHYLENE (MIRALAX) 17 GM PACK PO SCH (08:55)
[2019-10-24] MEDS: POTASSIUM CHLORIDE 20 MEQ TABCR PO SCH (08:55)
[2019-10-24] MEDS ORDERED: cloZAPine 25 MG TAB PO SCH (09:00)
[2019-10-24] MEDS ORDERED: TEMAZEPAM 7.5 MG CAPSULE PO PRN (09:04)
[2019-10-24] MEDS ORDERED: cloZAPine 100 MG TAB PO SCH (22:00)
[2019-10-25 06:57] LABS: Basophils # (auto) 0.05 K/uL (0-0.2); Basophils % (auto) 0.7 %; Eosinophils % (auto) 5.8 %; Hematocrit (blood only) 40.4 % (42-52); Hemoglobin 13.2 g/dL (14.0-18.0); Immature Granulocytes # (auto) 0.03 K/uL (0.00-0.02); Immature Granulocytes % (auto) 0.4 %; Lymphocytes # (auto) 1.69 K/uL (1.2-3.4); Lymphocytes % (auto) 24.4 %; Mean Corpuscular Hgb Conc 32.7 g/dL (32-36); Mean Corpuscular Volume 97.8 fL (80-100); Mean Platelet Volume 8.3 fL (7.4-10.4); Monocytes # (auto) 0.84 K/uL (0.11-0.59); Monocytes % (auto) 12.1 %; Neutrophils # (auto) 3.91 K/uL (1.4-6.5); Neutrophils % (auto) 56.6 %; Platelet Count 378 K/uL (130-400); RDW Coefficient of Variation 13.8 % (11.5-14.5); RDW Standard Deviation 48.8 fL (36.4-46.3); Red Blood Count 4.13 M/uL (4.7-6.1); White Blood Count 6.92 K/uL (4.8-10.8)
--- NOTE | 2019-10-25 08:12 | Psychiatric Progress Note ---
Date of Service October 25, 2019 Impression / Recommendations Impression 74-year-old male with chronic schizophrenia who presented 10/08/2019 after he was found unresponsive at the [facility] and admitted to taking a Tylenol overdose in an attempt to end his life. Admitted to the hospitalist service for 6 days, and transferred voluntarily to our unit on 10/14/19. He was on an involuntary 305 outpatient commitment converted to inpatient on 10/16/19. He sustained hepatic damage with significant elevations in AST and ALT, and we are continuing to follow those for resolution. All of his medications were held on the medical service, with ziprasidone being re-titrated at time of transfer to our unit. Mirtazapine and Xanax were discontinued as he reported they were ineffective. He was started on temazepam while on the hospitalist service for reports of poor sleep, and this medication has appeared to be effective - will need to determine discharge plans given history of benzodiazepine abuse; however, patient is likely to be discharged back to his [facility] where medication can be monitored. Pt did consent to retrial of Clozaril starting 10/17, with titration as tolerated. Pt continues to report AH and suicidal ideation, stating he is unable to contract for safety outside of the hospital setting at this time. The patient does present with some cogwheel rigidity, and there is been several instances in which he has made a phasic mistakes or appeared to be somewhat confused. We are making medication adjustments with plan to titrate clozapine while also considering episodes of confusion and EPS. It is also likely there is an underlying dementia component, with uncertain affect on her current presentation. Pt is too psychiatrically and physically unstable to make discharge home possible at this time. (1) Schizophrenia: 10/14 - Continue ziprasidone as initiated on the medical floor - resume 80mg BID dosing with meals - Continue benztropine 0.5mg as needed for reports of stiffness, though it remains unclear if this is truly related to his antipsychotic medication - Mirtazapine was discontinued on the medical floor as patient feels it had been ineffective - Continue temazepam 15mg qHS for sleep - at least while hospitalized in a supervised setting, as patient has a history of benzodiazepine abuse - Will coordinate treatment with patient's outpatient psychiatric supports - Encourage participation in group and recreational programming 10/15 -Continue ziprasidone; reviewed fasting lipid profile and fasting glucose from 02/2019, all values were within normal limits. -Discussed trial of clozapine; patient states that he believes he was on this medication in the past and that it was ineffective. Continue to provide education and encourage retrial, as he has had limited response to multiple other antipsychotics, and it would also help address suicidal thoughts in addition to psychosis. -Involve outpatient geriatric case manager and coordinate with psychiatrist, Dr. Alves. 10/16 -The plan is to continue ziprasidone 80 mg twice a day. We discussed other treatment options with the patient, and he says that he is not interested in trying the various options suggested. He tends to respond in the affirmative every time he is asked whether he has ever taken a number of specific medications, and replies in each instance "it did not help." He does say, somewhat convincingly, that he took clozapine (dose unspecified and unknown by the patient) a number of years ago for "a month or 2," and that it did not help. Re-challenging the patient with clozapine may be helpful, but at present the patient indicates that he will refuse to take it. -The patient hesitates when asked about loxapine and perphenazine, but then says that he has taken both. Loxapine is not on the hospital formulary. Today, the patient says that he is not interested in trying either of these medications "again." -Today, the patient tells us that he "really does not" want [facility] although he had previously said that he might be interested in doing that. He adds that he does feel safer in a hospital, but feels that he would like to work towards being able to be discharged back to the community at this point. 10/17 --reconsented for retrial of Clozaril following review of CBC and EKG, patient aware to monitor constipation and sialorrhea and notify staff. will dose at hs and titrate by 25 mg nightly, repeat CBC in 1 week. 10/18--titrate Clozaril to 50 mg po qhs, Dr. Campos notified to consider EKG for repeat QTC on med combo as dose is increased, EPS apparently predates start of Clozaril and is not new, he is agreeable to add 0.5 mg Cogentin standing order as trial basis. 3 - Continue clozapine titration (now ordered for automatic titration of 25mg each evening), pt to receive 75mg tonight - Pt reports his condition remains unchanged at this time, but is aware that clozapine will need to be titrated to an effective dose range - At this time, patient maintains his desire would be for eventual discharge back to the [facility] - no longer requesting [place] referral - He remains suicidal and continues to report head buzzing and auditory hallucinations that are overwhelming to him 10/20 - Continue clozapine titration - pt to receive 100mg tonight - Will reduce ziprasidone to 60mg BID given continued titration of clozapine and reported ineffectiveness of the medication - will order an EKG for tomorrow morning, given cross-titration putting patient at increased risk of QTc prolongation. - Ongoing discussions regarding discharge planning - Pt continues to verbalize SI and feels he cannot contract for safety outside of the hospital setting 10/21 - Clozapine to be titrated to 125mg this evening; will continue ziprasidone 60mg BID for now though can consider ongoing taper - EKG ordered this morning, and reviewed QTc 445 - Reports ongoing SI - stating he is "pretty d*mn close" to wanting to - Discharge planning meeting scheduled for tomorrow 10/22 -Discharge remaining has been postponed. -Ziprasidone was held this morning, and the patient's cognition seems to have cleared. He is fully oriented and has not shown evidence of confusion. The patient, himself, notes that his thinking does seem to be more clear than it had been. -We will further titrate clozapine 250 mg at bedtime and 25 mg in the morning. -Because of persistent disturbing auditory hallucinations that the patient reports prevent him from easily inducing and maintaining sleep we will increase his dose of temazepam from 15 mg at bedtime for sleep to a dose of 22.5 mg at bedtime as needed sleep. -Although the patient's cognition seems to have improved, staff recall that during at least 1 previous admission the patient had similar mental status alterations and a urinary tract infection was found to been contributory. For that reason, we have ordered a urinalysis. -The patient has been demonstrating a shuffling gait, and on testing today a substantial degree of cogwheel rigidity was noted. The patient also reports a feeling "jumpy" and "restless." He had been receiving benztropine 0.5 mg twice a day, and while this may have been helpful, it seems not to have been fully effective. We will try trihexyphenidyl 2 mg stat and then 2 mg twice a day, and titrate further as indicated. 10/23 - Titrate clozapine to 25mg qAM and 200mg qHS - continue to hold ziprasidone at this time - Pt continues to reports stiffness and difficulty with ambulation, given that we are continuing to titrate clozapine we will order an additional prn dose of trihexyphenidyl 2mg with consideration to schedule the dose if necessary - UA results reviewed - no indication for current UTI - Will need to continue to discuss appropriate discharge timeline - patient remains suicidal 10/24 - Given concern for confusion, EPS and parkinsonism, morning dose of clozapine was held - Will reduce patient's dose to 150mg qHS and plan for a slower titration. This dosage continues to be subtherapeutic, and patient will require advancement of dose as tolerated - Will discontinue trihexyphenidyl due to concern for urinary retention - will resume benztropine 1mg BID for ongoing stiffness and EPS - Will plan to reduce dose of temazepam to 7.5mg with a one-time repeat if necessary - Pt placed on MNPR due to ambulatory concerns, somewhat disruptive behavior related to his physical complaints, and need for close observation at this time (2) Tylenol overdose: 10/14 - Continue management per medical team - Recheck LFTs tomorrow morning. Today, AST 70, ALT 631. 10/15 -Continue to trend down. AST 54, ALT 538. We will reorder LFTs for Saturday. Avoid hepatotoxic agents. 10/16 -Patient reports that he remains suicidal and confirms that his overdose of Tylenol was taken with the intent of causing his own . (3) Hypertension: 10/14 - Home medication includes clonidine 0.1mg qHS - Will continue to monitor blood pressure with daily vitals, consider resuming 10/20 - We have continued daily blood pressures, some of which have been mildly elevated but not consistently - Given increased fatigue and concern for falls related to intermittent unsteadiness with ambulation, will continue to hold clonidine at this time 10/22 -Today, the patient's blood pressure is within normal limits. (4) Benzodiazepine abuse: 10/14 - Historical diagnosis of benzodiazepine abuse - Will not continue home dose of alprazolam - but will offer temazepam 15mg qHS for sleep as it has been effective - Will need to consider the safety of this medication regimen, and may suggest discontinuation of benzodiazepines at discharge given his history - Benzodiazepines are not recommended for the patient if he would be discharged to an unsupervised setting or expected to manage his own medication administration 10/16 -The patient is history of benzodiazepine abuse is noted. That history not withstanding, at seems apparent that the only hypnotic medication that has been consistently effective for this patient has been temazepam, and there is no evidence that he has been misusing this medication in the community prior to admission. -The material risks of temazepam, including but not limited to, risk of a physical habituation, risk of complicated and possibly fatal withdrawal sym ptoms, risk of accidents, falls and other injuries, as well as risk of worsening depression and clouded consciousness/cognitive impairment were reviewed with the patient, and he responded by saying, "I know. But it is the only thing that works. I really need to sleep, and without it the voices keep me awake all night." 10/22 -The patient's history of benzodiazepine continues to be noted. However, the patient's current condition, we continue to feel that the use of temazepam for sleep is medically necessary and appropriate. (5) Auditory hallucinations: 10/16 -Patient's chief complaint has to do with persistent persecutory auditory hallucinations. He describes the voices as being "electronically generated," and although he tells us that he does not know the source of the electronically generated voices, he says that he has no doubt that they are real and are coming from some entity that is trying to torture and/or kill him. His explanation for the suicide attempt was not that he has been depressed, but, instead, because he feels tortured by the voices and finds that he can no longer tolerate hearing them and no longer tolerate feeling terrorized by them. Patient also explains that he would rather at his own hand than risk being murdered by unknown forces and unknown means. -The patient's condition has been largely treatment resistant to psychiatric medications. With each antipsychotic medication mentioned, the patient's response has been to assert that the specific medicine mentioned has been tried and was not effective, or has been tried and caused worsening symptoms. Today, he asserts that he has taken clozapine in the past, but that it was not effective. He has unable to identify the dose, and does not recall when or where it was prescribed, but says that he believes that he took it for "a month or 2" before it was discontinued as ineffective. Other options for the patient might be a trial of perphenazine or loxapine. For now, the patient has indicated that he would prefer to remain on Geodon 80 mg twice a day. 3/4 - Auditory hallucinations are ongoing. Pt does report that the voices are quieter, but when asked for how long he states "just now, since you asked" - Unclear how reliable patient's reports are on this topic, though it is anticipated ongoing titration of clozapine may be helpful for this 3 - Pt more focused on "head buzzing" today, does not mention auditory hallucinations today though this does not mean he is not experiencing them 3/6 -Today, the patient reports that he is troubled both by "a buzzing sound" in both ears, as well as by voices". He tells us that he believes that the voices are being generated by a computer and that the threats that are made through the's "voices" are genuine and represent a mortal danger. He insists that he is being told that he is going to be murdered. -I tried to talk to the patient about the fact that his records, going back many years, speak to the presence of similar perceptual disturbances and similar believes. The patient responds by saying, "they have come close to killing me a number of times. 1 of these days they are going to do it!" -We are discontinuing Geodon today and will be increasing his dose of clozapine, beginning tonight. The new dose of clozapine will be 150 mg at bedtime and 25 mg in the morning. We expect that we will need to continue to titrate. We will also reintroduce clozapine, albeit at a lower dose, should his psychiatric condition worsen. Our concern at this point is excess sedation associated with our current cross titration of Geodon and clozapine. 10/23 - Pt denies significant change from above at this time 10/24 - Ongoing, unchanged with current dose of clozapine - pt would likely require further titration of clozapine to therapeutic range; however, this titration must be balanced with concerns the medication may be causing EPS and parkinsonism - Will reduce dose of clozapine to 150mg qHS and suggest reduced pace of titration Risk Factors Assessment Male: Yes : Yes Do You Have Access To A Gun?: No Health Problems: No Mental Health Diagnoses: Yes Substance Use Disorders: Yes Previous Attempt: Yes Family History of Suicide: Yes (cousin) Previous Psychiatric Hospitalization: Yes Hopelessness: Yes Protective Factors Assessment Ep[employer] Beliefs: No : No Responsible for Young Children: No Employed: No Stable Relationships: No Supportive Family: No Good Rapport with Provider: No Interval History Identifying Information SCOTT ROBERTO is a 74-year-old M who currently lives in [place] at the [facility]. Pt has a history of schizophrenia and this is his fourth psychiatric admission to our unit in roughly the last 7 months, with one admission to [facility] in that time as well. Pt was admitted on 10/14/19 12:33 on a 201 voluntary commitment after being treated on the medical floor since 10/09/2019 after an intentional Tylenol overdose. 306 conversion hearing was held on 10/16/2019 and his 305 IOC was converted to an inpatient commitment. Chief Complaint "Not good." Review of Systems Notes Constitutional: reports feeling "unsteady" and dizzy Cardiovascular: denied Respiratory: denied Gastrointestinal: denied Neurological: admits to confusion Psychiatric: denies symptoms other than stated above Total of at least 10 systems reviewed, pertinent positives as above and in HPI. Sleep Information Total Hours of Sleep: 5 Sleep Comments: . Meal Information Percent Meal Consumed - Breakfast: 100 Percent Meal Consumed - Lunch: 100 Percent Meal Consumed - Dinner: 90 Subjective Subjective Patient was seen & assessed and interval progress reviewed with nursing and social work. Staff report the patient had a difficult night, again presenting with confusion, shuffling gait, and restlessness around 2300. It was reported that patient awoke several times in a short span attempting to use the bathroom but was unable to urinate. Pt eventually successfully voided a large amount of urine per staff. Pt reportedly remains confused and unsteady this morning. Pt was seen today to assess progress since admission. Pt states he is "not good." He states that he did not sleep well, and reports he is "unsteady walking." Pt asks a rhetorical question, "where did I put my coffee?" while looking under his blankets and underneath the bed. Pt was asked if he is continuing to feel confused, to which he responds "I don't want to talk about it until tomorrow. Just let it all sort itself out today and then we can talk." Pt was unwilling to engage in additional questions regarding his mental status. He did allow this provider to assess him for cogwheeling, which was not perceived to be present. He denied further needs and was informed of plan to move him closer to the nurse's station for closer observation. He was agreeable with ongoing medication adjustments. He requested to be left alone, and states "just close the door." Physical Exam Psychiatric Orientation: alert, oriented to person and + guarded (minimally cooperative ) Apperance: appropriately dressed, + disheveled and appeared stated age Eye Contact: + fair eye contact Motor Behavior: + EPS; + unsteady gait or station (shuffling gait at times, improved as day progressed) Speech: normal rate/rhythm/volume of speech (brief responses to questions, which is usual for the patient ) Affect: + anxious affect and + flat affect Mood: + depressed mood ("Not good") Thought Process: + concrete thought process Thought Content: reality based without delusions and + hopelessness (ongoing) Suicidal Thoughts: + reports suicidal thoughts Homicidal Thoughts: denies homicidal thoughts Hallucinations: + auditory hallucinations; no visual hallucinations Cognition: language grossly intact; + attention not intact Insight: + impaired insight Judgement: + impaired judgement Vital Signs (Past 24 Hours) Last Vital Signs Temp 36.4 C L 10/25/19 06:59 Pulse 93 H 10/25/19 06:59 Resp 18 10/25/19 06:59 BP 138/81 10/25/19 06:59 Pulse Ox 96 10/22/19 23:30 Results & Data ([facility]) Laboratory Results Laboratory Results - last 24 hr 10/25/19 06:44 WBC 6.92 RBC 4.13 L Hgb 13.2 L Hct 40.4 L MCV 97.8 MCH 32.0 MCHC 32.7 RDW Std Deviation 48.8 H RDW Coeff of Namita 13.8 Plt Count 378 MPV 8.3 Immature Gran % (Auto) 0.4 Neut % (Auto) 56.6 Lymph % (Auto) 24.4 Hays % (Auto) 12.1 Eos % (Auto) 5.8 Baso % (Auto) 0.7 Immature Gran # (Auto) 0.03 H Neut # (Auto) 3.91 Lymph # (Auto) 1.69 Hays # (Auto) 0.84 H Eos # (Auto) 0.40 Baso # (Auto) 0.05 Current Inpatient Medications Current Inpatient Medications: Current Inpatient Medications Al Hydrox/Mg Hydrox/Simethicone (Maalox) 30 ml PO Q4H PRN PRN Reason: GI Upset Stop: 11/13/19 13:39 Bismuth Subsalicylate (Kaopectate) 15 ml PO PRN PRN PRN Reason: Loose Stool Stop: 11/13/19 13:39 Clozapine (Clozaril) 25 mg PO DAILY MAG Stop: 11/23/19 08:59 Last Admin: 10/24/19 08:55 Dose: 25 mg Documented by: Clozapine (Clozapine) 200 mg PO HS MAG Stop: 11/23/19 21:59 Last Admin: 10/24/19 21:05 Dose: 200 mg Documented by: Docusate Sodium (Colace) 100 mg PO BID MAG Stop: 11/13/19 20:59 Last Admin: 10/24/19 21:04 Dose: 100 mg Documented by: Hydroxyzine HCl (Vistaril) 50 mg PO HSZ PRN PRN Reason: Insomnia Stop: 11/13/19 13:39 Hydroxyzine HCl (Vistaril) 25 mg PO Q4H PRN PRN Reason: Anxiety Stop: 11/13/19 13:39 Magnesium Hydroxide (Milk Of Magnesia) 30 ml PO DAILY PRN PRN Reason: Constipation Stop: 11/13/19 13:39 Magnesium Oxide (Mag-Ox) 400 mg PO DAILY MAG Stop: 11/14/19 08:59 Last Admin: 10/24/19 08:55 Dose: 400 mg Documented by: Polyethylene Glycol (Miralax Powder Packet) 17 gm PO DAILY MAG Stop: 11/14/19 08:59 Last Admin: 10/24/19 08:55 Dose: 17 gm Documented by: Potassium Chloride (Klor-Con M20) 20 meq PO DAILY MAG Stop: 11/14/19 08:59 Last Admin: 10/24/19 08:55 Dose: 20 meq Documented by: Senna/Docusate Sodium (Senokot S) 1 tab PO QAM MAG Stop: 11/14/19 08:59 Last Admin: 10/24/19 08:55 Dose: 1 tab Documented by: Sodium Chloride ([place] Nasal) 1 - 2 sprays NA PRN PRN PRN Reason: Nasal Dryness/Congestion Stop: 11/13/19 13:39 Temazepam (Restoril) 22.5 mg PO HSZ PRN PRN Reason: Insomnia Stop: 11/23/19 09:03 Last Admin: 10/24/19 21:08 Dose: 22.5 mg Documented by: Trihexyphenidyl HCl (Artane) 2 mg PO TID MAG Stop: 11/23/19 13:59 Last Admin: 10/24/19 21:04 Dose: 2 mg Documented by: Mental Health & Subst Abuse Tx Therapist Name of Therapist: none Ethics Officer Name of Ethics Officer: Pat @ [facility] Post Discharge Appointments Primary Care Physician Name Of Family Doctor: Dr. Jeff Lopez (1) Schizophrenia Schizophrenia type: paranoid schizophrenia Qualified Code(s): F20.0 - Paranoid schizophrenia (2) Hypertension Hypertension type: essential hypertension Qualified Code(s): I10 - Essential (primary) hypertension
[2019-10-25] MEDS ORDERED: TEMAZEPAM 7.5 MG CAPSULE PO PRN (09:42)
[2019-10-25] MEDS: DOCUSATE SODIUM 100 MG CAP PO SCH ×2 (10:34→20:35)
[2019-10-25] MEDS: POTASSIUM CHLORIDE 20 MEQ TABCR PO SCH (10:34)
[2019-10-25] MEDS: MAGNESIUM OXIDE 400 MG TAB PO SCH (10:34)
[2019-10-25] MEDS: DOCUSATE SODIUM/SENNA 50/8.6MG TAB PO SCH (10:36)
[2019-10-25] MEDS: BENZTROPINE MESYLATE 1 MG TAB PO SCH ×2 (10:36→20:35)
[2019-10-25] MEDS: POLYETHYLENE (MIRALAX) 17 GM PACK PO SCH (10:36)
[2019-10-25] MEDS: cloZAPine 100 MG TAB PO SCH (20:35)
[2019-10-26] MEDS: DOCUSATE SODIUM 100 MG CAP PO SCH ×2 (08:55→19:59)
[2019-10-26] MEDS: BENZTROPINE MESYLATE 1 MG TAB PO SCH ×2 (08:55→19:59)
[2019-10-26] MEDS: POTASSIUM CHLORIDE 20 MEQ TABCR PO SCH (08:55)
[2019-10-26] MEDS: MAGNESIUM OXIDE 400 MG TAB PO SCH (08:56)
[2019-10-26] MEDS: DOCUSATE SODIUM/SENNA 50/8.6MG TAB PO SCH (08:56)
[2019-10-26] MEDS: POLYETHYLENE (MIRALAX) 17 GM PACK PO SCH (08:56)
--- NOTE | 2019-10-26 12:30 | Psychiatric Progress Note ---
Date of Service October 26, 2019 Impression / Recommendations Impression 74-year-old male with chronic schizophrenia who presented 10/08/2019 after he was found unresponsive at the [facility] and admitted to taking a Tylenol overdose in an attempt to end his life. Admitted to the hospitalist service for 6 days, and transferred voluntarily to our unit on 10/14/19. He was on an involuntary 305 outpatient commitment converted to inpatient on 10/16/19. He sustained hepatic damage with significant elevations in AST and ALT, and we are continuing to follow those for resolution. All of his medications were held on the medical service, with ziprasidone being re-titrated at time of transfer to our unit. Mirtazapine and Xanax were discontinued as he reported they were ineffective. He was started on temazepam while on the hospitalist service for reports of poor sleep, and this medication has appeared to be effective - will need to determine discharge plans given history of benzodiazepine abuse; however, patient is likely to be discharged back to his CRR where medication can be monitored. Pt did consent to retrial of Clozaril starting 10/17, with titration as tolerated. Pt continues to report AH and suicidal ideation, stating he is unable to contract for safety outside of the hospital setting at this time. . (1) Schizophrenia: 10/14 - Continue ziprasidone as initiated on the medical floor - resume 80mg BID dosing with meals - Continue benztropine 0.5mg as needed for reports of stiffness, though it remains unclear if this is truly related to his antipsychotic medication - Mirtazapine was discontinued on the medical floor as patient feels it had been ineffective - Continue temazepam 15mg qHS for sleep - at least while hospitalized in a supervised setting, as patient has a history of benzodiazepine abuse - Will coordinate treatment with patient's outpatient psychiatric supports - Encourage participation in group and recreational programming 10/15 -Continue ziprasidone; reviewed fasting lipid profile and fasting glucose fr 02/2019, all values were within normal limits. -Discussed trial of clozapine; patient states that he believes he was on this medication in the past and that it was ineffective. Continue to provide education and encourage retrial, as he has had limited response to multiple other antipsychotics, and it would also help address suicidal thoughts in addition to psychosis. -Involve outpatient nurse case manager and coordinate with psychiatrist, Dr. Alves. 10/16 -The plan is to continue ziprasidone 80 mg twice a day. We discussed other treatment options with the patient, and he says that he is not interested in trying the various options suggested. He tends to respond in the affirmative every time he is asked whether he has ever taken a number of specific medications, and replies in each instance "it did not help." He does say, somewhat convincingly, that he took clozapine (dose unspecified and unknown by the patient) a number of years ago for "a month or 2," and that it did not help. Re-challenging the patient with clozapine may be helpful, but at present the patient indicates that he will refuse to take it. -The patient hesitates when asked about loxapine and perphenazine, but then says that he has taken both. Loxapine is not on the hospital formulary. Today, the patient says that he is not interested in trying either of these medications "again." -Today, the patient tells us that he "really does not" want to go to the [place] [facility] ("[facility] although he had previously said that he might be interested in doing that. He adds that he does feel safer in a hospital, but feels that he would like to work towards being able to be discharged back to the community at this point. 3 --reconsented for retrial of Clozaril following review of CBC and EKG, patient aware to monitor constipation and sialorrhea and notify staff. will dose at hs and titrate by 25 mg nightly, repeat CBC in 1 week. 10/18--titrate Clozaril to 50 mg po qhs, Dr. Campos notified to consider EKG for r epeat QTC on med combo as dose is increased, EPS apparently predates start of Clozaril and is not new, he is agreeable to add 0.5 mg Cogentin standing order as trial basis. 3 - Continue clozapine titration (now ordered for automatic titration of 25mg each evening), pt to receive 75mg tonight - Pt reports his condition remains unchanged at this time, but is aware that clozapine will need to be titrated to an effective dose range - At this time, patient maintains his desire would be for eventual discharge back to the [facility] - no longer requesting [facility] referral - He remains suicidal and continues to report head buzzing and auditory hallucinations that are overwhelming to him 3 - Continue clozapine titration - pt to receive 100mg tonight - Will reduce ziprasidone to 60mg BID given continued titration of clozapine and reported ineffectiveness of the medication - will order an EKG for tomorrow morning, given cross-titration putting patient at increased risk of QTc prolongation. - Ongoing discussions regarding discharge planning - Pt continues to verbalize SI and feels he cannot contract for safety outside of the hospital setting 10/21 - Clozapine to be titrated to 125mg this evening; will continue ziprasidone 60mg BID for now though can consider ongoing taper - EKG ordered this morning, and reviewed QTc 445 - Reports ongoing SI - stating he is "pretty d*mn close" to wanting to - Discharge planning meeting scheduled for tomorrow 10/22 -Discharge remaining has been postponed. -Ziprasidone was held this morning, and the patient's cognition seems to have cleared. He is fully oriented and has not shown evidence of confusion. The patient, himself, notes that his thinking does seem to be more clear than it had been. -We will further titrate clozapine 250 mg at bedtime and 25 mg in the morning. -Because of persistent disturbing auditory hallucinations that the patient reports prevent him from easily inducing and maintaining sleep we will increase his dose of temazepam from 15 mg at bedtime for sleep to a dose of 22.5 mg at bedtime as needed sleep. -Although the patient's cognition seems to have improved, staff recall that during at least 1 previous admission the patient had similar mental status alterations and a urinary tract infection was found to been contributory. For that reason, we have ordered a urinalysis. -The patient has been demonstrating a shuffling gait, and on testing today a substantial degree of cogwheel rigidity was noted. The patient also reports a feeling "jumpy" and "restless." He had been receiving benztropine 0.5 mg twice a day, and while this may have been helpful, it seems not to have been fully effective. We will try trihexyphenidyl 2 mg stat and then 2 mg twice a day, and titrate further as indicated. 10/23 - Titrate clozapine to 25mg qAM and 200mg qHS - continue to hold ziprasidone at this time - Pt continues to reports stiffness and difficulty with ambulation, given that we are continuing to titrate clozapine we will order an additional prn dose of trihexyphenidyl 2mg with consideration to schedule the dose if necessary - UA results reviewed - no indication for current UTI - Will need to continue to discuss appropriate discharge timeline - patient remains suicidal 10/24 - Given concern for confusion, EPS and parkinsonism, morning dose of clozapine was held - Will reduce patient's dose to 150mg qHS and plan for a slower titration. This dosage continues to be subtherapeutic, and patient will require advancement of dose as tolerated - Will discontinue trihexyphenidyl due to concern for urinary retention - will resume benztropine 1mg BID for ongoing stiffness and EPS - Will plan to reduce dose of temazepam to 7.5mg with a one-time repeat if necessary - Pt placed on MNPR due to ambulatory concerns, somewhat disruptive behavior related to his physical complaints, and need for close observation at this time (2) Tylenol overdose: 10/14 - Continue management per medical team - Recheck LFTs tomorrow morning. Today, AST 70, ALT 631. 10/15 -Continue to trend down. AST 54, ALT 538. We will reorder LFTs for Saturday. Avoid hepatotoxic agents. 10/16 -Patient reports that he remains suicidal and confirms that his overdose of Tylenol was taken with the intent of causing his own . (3) Hypertension: 10/14 - Home medication includes clonidine 0.1mg qHS - Will continue to monitor blood pressure with daily vitals, consider resuming 10/20 - We have continued daily blood pressures, some of which have been mildly elevated but not consistently - Given increased fatigue and concern for falls related to intermittent unsteadiness with ambulation, will continue to hold clonidine at this time 10/22 -Today, the patient's blood pressure is within normal limits. (4) Benzodiazepine abuse: 10/14 - Historical diagnosis of benzodiazepine abuse - Will not continue home dose of alprazolam - but will offer temazepam 15mg qHS for sleep as it has been effective - Will need to consider the safety of this medication regimen, and may suggest discontinuation of benzodiazepines at discharge given his history - Benzodiazepines are not recommended for the patient if he would be discharged to an unsupervised setting or expected to manage his own medication administration 10/16 -The patient is history of benzodiazepine abuse is noted. That history not withstanding, at seems apparent that the only hypnotic medication that has been consistently effective for this patient has been temazepam, and there is no evidence that he has been misusing this medication in the community prior to admission. -The material risks of temazepam, including but not limited to, risk of a physical habituation, risk of complicated and possibly fatal withdrawal symptoms, risk of accidents, falls and other injuries, as well as risk of worsening depression and clouded consciousness/cognitive impairment were reviewed with the patient, and he responded by saying, "I know. But it is the only thing that works. I really need to sleep, and without it the voices keep me awake all night." 10/22 -The patient's history of benzodiazepine continues to be noted. However, the patient's current condition, we continue to feel that the use of temazepam for sleep is medically necessary and appropriate. 10/25--d/c temazepam as seems to be contributing to AMS (5) Auditory hallucinations: 10/16 -Patient's chief complaint has to do with persistent persecutory auditory hallucinations. He describes the voices as being "electronically generated," and although he tells us that he does not know the source of the electronically generated voices, he says that he has no doubt that they are real and are coming from some entity that is trying to torture and/or kill him. His explanation for the suicide attempt was not that he has been depressed, but, instead, because he feels tortured by the voices and finds that he can no longer tolerate hearing them and no longer tolerate feeling terrorized by them. Patient also explains that he would rather at his own hand than risk being murdered by unknown forces and unknown means. -The patient's condition has been largely treatment resistant to psychiatric medications. With each antipsychotic medication mentioned, the patient's response has been to assert that the specific medicine mentioned has been tried and was not effective, or has been tried and caused worsening symptoms. Today, he asserts that he has taken clozapine in the past, but that it was not effective. He has unable to identify the dose, and does not recall when or where it was prescribed, but says that he believes that he took it for "a month or 2" before it was discontinued as ineffective. Other options for the patient might be a trial of perphenazine or loxapine. For now, the patient has indic ated that he would prefer to remain on Geodon 80 mg twice a day. 10/20 - Auditory hallucinations are ongoing. Pt does report that the voices are quieter, but when asked for how long he states "just now, since you asked" - Unclear how reliable patient's reports are on this topic, though it is anticipated ongoing titration of clozapine may be helpful for this 10/21 - Pt more focused on "head buzzing" today, does not mention auditory hallucinations today though this does not mean he is not experiencing them 10/22 -Today, the patient reports that he is troubled both by "a buzzing sound" in both ears, as well as by voices". He tells us that he believes that the voices are being generated by a computer and that the threats that are made through the's "voices" are genuine and represent a mortal danger. He insists that he is being told that he is going to be murdered. -I tried to talk to the patient about the fact that his records, going back many years, speak to the presence of similar perceptual disturbances and similar believes. The patient responds by saying, "they have come close to killing me a number of times. 1 of these days they are going to do it!" -We are discontinuing Geodon today and will be increasing his dose of clozapine, beginning tonight. The new dose of clozapine will be 150 mg at bedtime and 25 mg in the morning. We expect that we will need to continue to titrate. We will also reintroduce clozapine, albeit at a lower dose, should his psychiatric condition worsen. Our concern at this point is excess sedation associated with our current cross titration of Geodon and clozapine. 10/23 - Pt denies significant change from above at this time 10/24 - Ongoing, unchanged with current dose of clozapine - pt would likely require further titration of clozapine to therapeutic range; however, this titration must be balanced with concerns the medication may be causing EPS and parkinsonism - Will reduce dose of clozapine to 150mg qHS and suggest reduced pace of titration Risk Factors Assessment Male: Yes : Yes Do You Have Access To A Gun?: No Health Problems: No Mental Health Diagnoses: Yes Substance Use Disorders: Yes Previous Attempt: Yes Family History of Suicide: Yes (cousin) Previous Psychiatric Hospitalization: Yes Hopelessness: Yes Protective Factors Assessment Spiritism Beliefs: No : No Responsible for Young Children: No Employed: No Stable Relationships: No Supportive Family: No Good Rapport with Provider: No Interval History Identifying Information SCOTT ROBERTO is a 74-year-old M who currently lives in [place] at the [facility]. Pt has a history of schizophrenia and this is his fourth psychiatric admission to our unit in roughly the last 7 months, with one admission to [facility] in that time as well. Pt was admitted on 10/14/19 12:33 on a 201 voluntary commitment after being treated on the medical floor since 10/09/2019 after an intentional Tylenol overdose. 306 conversion hearing was held on 10/16/2019 and his 305 IOC was converted to an inpatient commitment. Chief Complaint "hallucinations make it hard to think but physically I feel better today". Review of Systems Sleep Information Total Hours of Sleep: 8.75 Sleep Comments: . Meal Information Percent Meal Consumed - Breakfast: 100 Percent Meal Consumed - Lunch: 100 Percent Meal Consumed - Dinner: 75 Subjective Subjective Patient was seen & assessed and interval progress reviewed with treatment team. decrease in muscle stiffness today and improved gait. Doesn't feel as confused or sedated in the am, seemingly since decrease in Restoril. Mouth is dry but good rom head/neck/jaw. Physical Exam Psychiatric Orientation: alert Apperance: appropriately groomed Eye Contact: + fair eye contact Motor Behavior: no abnormal motor movements; n EPS and n akathisia non spontaneous Affect: + depressed affect Mood: + depressed mood Thought Process: goal directed thought process Thought Content: + delusions Suicidal Thoughts: denies suicidal thoughts Homicidal Thoughts: + reports homicidal thoughts Hallucinations: + auditory hallucinations; no visual hallucinations Cognition: attention grossly intact and language grossly intact Estimated Intelligence: consistent with education level Insight: + poor insight Judgement: + poor judgement Vital Signs (Past 24 Hours) Last Vital Signs Temp 36.4 C L 10/25/19 06:59 Pulse 87 10/26/19 07:00 Resp 18 10/26/19 07:00 BP 119/77 10/26/19 07:00 Pulse Ox 96 10/22/19 23:30 Results & Data ([facility]) Current Inpatient Medications Current Inpatient Medications: Current Inpatient Medications Al Hydrox/Mg Hydrox/Simethicone (Maalox) 30 ml PO Q4H PRN PRN Reason: GI Upset Stop: 11/13/19 13:39 Benztropine Mesylate (Cogentin) 1 mg PO BID MAG Stop: 11/24/19 09:59 Last Admin: 10/26/19 08:55 Dose: 1 mg Documented by: Bismuth Subsalicylate (Kaopectate) 15 ml PO PRN PRN PRN Reason: Loose Stool Stop: 11/13/19 13:39 Clozapine (Clozapine) 150 mg PO HS MAG Stop: 11/24/19 21:59 Last Admin: 10/25/19 20:35 Dose: 150 mg Documented by: Docusate Sodium (Colace) 100 mg PO BID MAG Stop: 11/13/19 20:59 Last Admin: 10/26/19 08:55 Dose: 100 mg Documented by: Hydroxyzine HCl (Vistaril) 50 mg PO HSZ PRN PRN Reason: Insomnia Stop: 11/13/19 13:39 Hydroxyzine HCl (Vistaril) 25 mg PO Q4H PRN PRN Reason: Anxiety Stop: 11/13/19 13:39 Magnesium Hydroxide (Milk Of Magnesia) 30 ml PO DAILY PRN PRN Reason: Constipation Stop: 11/13/19 13:39 Magnesium Oxide (Mag-Ox) 400 mg PO DAILY MAG Stop: 11/14/19 08:59 Last Admin: 10/26/19 08:56 Dose: 400 mg Documented by: Polyethylene Glycol (Miralax Powder Packet) 17 gm PO DAILY MAG Stop: 11/14/19 08:59 Last Admin: 10/26/19 08:56 Dose: 17 gm Documented by: Potassium Chloride (Klor-Con M20) 20 meq PO DAILY MAG Stop: 11/14/19 08:59 Last Admin: 10/26/19 08:55 Dose: 20 meq Documented by: Senna/Docusate Sodium (Senokot S) 1 tab PO QAM MAG Stop: 11/14/19 08:59 Last Admin: 10/26/19 08:56 Dose: 1 tab Documented by: Sodium Chloride (Sharkey Nasal) 1 - 2 sprays NA PRN PRN PRN Reason: Nasal Dryness/Congestion Stop: 11/13/19 13:39 Mental Health & Subst Abuse Tx Psychiatrist Name of Psychiatrist: [facility] - Dr. Alves Psychiatrist's Psychiatric Appointment Comment: [address], [address], [place] [address] Therapist Name of Therapist: none Power Plant Assistant Name of Power Plant Assistant: Shruti Mcbride Phone Number for Power Plant Assistant: [phone] Case Management Appointment Comment: Comes to see you at the [facility] Post Discharge Appointments Primary Care Physician Name Of Family Doctor: [facility] - Dr. Jeff Lopez Primary Care Provider Appointment Comment: [address], [address], [place] [address] Neurologist Name of Neurologist: [facility] [place] Dr. Caal Neurologist's Date of Appointment with Neurologist: 11/17/19 Neurology Appointment Comment: [address] [facility] [address], [place] [address] Contact Information Discharge Contact Information Comment: [facility] [place] [facility] (1) Schizophrenia Schizophrenia type: paranoid schizophrenia Qualified Code(s): F20.0 - Paranoid schizophrenia (2) Hypertension Hypertension type: essential hypertension Qualified Code(s): I10 - Essential (primary) hypertension
[2019-10-26] MEDS: cloZAPine 100 MG TAB PO SCH (20:00)
[2019-10-27] MEDS: MAGNESIUM OXIDE 400 MG TAB PO SCH (09:11)
[2019-10-27] MEDS: BENZTROPINE MESYLATE 1 MG TAB PO SCH ×2 (09:11→20:40)
[2019-10-27] MEDS: POTASSIUM CHLORIDE 20 MEQ TABCR PO SCH (09:11)
[2019-10-27] MEDS: DOCUSATE SODIUM 100 MG CAP PO SCH ×2 (09:11→20:41)
[2019-10-27] MEDS: DOCUSATE SODIUM/SENNA 50/8.6MG TAB PO SCH (09:12)
[2019-10-27] MEDS: POLYETHYLENE (MIRALAX) 17 GM PACK PO SCH (09:12)
--- NOTE | 2019-10-27 12:57 | Psychiatric Progress Note ---
Date of Service October 27, 2019 Impression / Recommendations Impression 74-year-old male with chronic schizophrenia who presented 10/08/2019 after he was found unresponsive at the [facility] and admitted to taking a Tylenol overdose in an attempt to end his life. Admitted to the hospitalist service for 6 days, and transferred voluntarily to our unit on 10/14/19. He was on an involuntary 305 outpatient commitment converted to inpatient on 10/16/19. He sustained hepatic damage with significant elevations in AST and ALT, and we are continuing to follow those for resolution. All of his medications were held on the medical service, with ziprasidone being re-titrated at time of transfer to our unit. Mirtazapine and Xanax were discontinued as he reported they were ineffective. He was started on temazepam while on the hospitalist service for reports of poor sleep, and this medication has appeared to be effective - will need to determine discharge plans given history of benzodiazepine abuse; however, patient is likely to be discharged back to his [facility] where medication can be monitored. Pt did consent to retrial of Clozaril starting 10/17, with titration as tolerated. Pt continues to report AH and suicidal ideation, stating he is unable to contract for safety outside of the hospital setting at this time. Side effects resolving, monitor on lower dose of Clozaril. Risk Factors Assessment Male: Yes : Yes Do You Have Access To A Gun?: No Health Problems: No Mental Health Diagnoses: Yes Substance Use Disorders: Yes Previous Attempt: Yes Family History of Suicide: Yes (cousin) Previous Psychiatric Hospitalization: Yes Hopelessness: Yes Protective Factors Assessment Jew Beliefs: No : No Responsible for Young Children: No Employed: No Stable Relationships: No Supportive Family: No Good Rapport with Provider: No Interval History Identifying Information SCOTT ROBERTO is a 74-year-old M who currently lives in [place] at the [facility]. Pt has a history of schizophrenia and this is his fourth psychiatric admission to our unit in roughly the last 7 months, with one admission to [facility] in that time as well. Pt was admitted on 10/14/19 12:33 on a 201 voluntary commitment after being treated on the medical floor since 10/09/2019 after an intentional Tylenol overdose. 306 conversion hearing was held on 10/16/2019 and his 305 IOC was converted to an inpatient commitment. Chief Complaint "nothing is better". Review of Systems Sleep Information Total Hours of Sleep: 7.25 Sleep Comments: pt on q-15 minute checis Meal Information Percent Meal Consumed - Breakfast: 100 Percent Meal Consumed - Lunch: 100 Percent Meal Consumed - Dinner: 100 Subjective Subjective Patient was seen & assessed and interval progress reviewed with treatment team. Reports of poor sleep are not supported by staff observations. Gait also appears improved. He was initially upset that Restoril was discontinued, continues to perceive that needs something for sleep. Reviewed that seemed to be causing confusion at night. EPS from weekend appear to be resolving. Physical Exam Psychiatric Orientation: alert Apperance: appropriately groomed Eye Contact: + fair eye contact Motor Behavior: no abnormal motor movements Speech: normal rate/rhythm/volume of speech Affect: + depressed affect Mood: + depressed mood Thought Process: linear/logical thought process Thought Content: reality based without delusions Suicidal Thoughts: denies suicidal thoughts Homicidal Thoughts: denies homicidal thoughts Hallucinations: + auditory hallucinations Cognition: attention grossly intact Vital Signs (Past 24 Hours) Last Vital Signs Temp 36.8 C 10/27/19 06:37 Pulse 105 H 10/27/19 06:38 Resp 18 10/27/19 06:37 BP 124/65 10/27/19 06:38 Pulse Ox 96 10/22/19 23:30 Results & Data ([facility]) Current Inpatient Medications Current Inpatient Medications: Current Inpatient Medications Al Hydrox/Mg Hydrox/Simethicone (Maalox) 30 ml PO Q4H PRN PRN Reason: GI Upset Stop: 11/13/19 13:39 Benztropine Mesylate (Cogentin) 1 mg PO BID MAG Stop: 11/24/19 09:59 Last Admin: 10/27/19 09:11 Dose: 1 mg Documented by: Bismuth Subsalicylate (Kaopectate) 15 ml PO PRN PRN PRN Reason: Loose Stool Stop: 11/13/19 13:39 Clozapine (Clozapine) 150 mg PO HS MAG Stop: 11/24/19 21:59 Last Admin: 10/26/19 20:00 Dose: 150 mg Documented by: Docusate Sodium (Colace) 100 mg PO BID MAG Stop: 11/13/19 20:59 Last Admin: 10/27/19 09:11 Dose: 100 mg Documented by: Hydroxyzine HCl (Vistaril) 50 mg PO HSZ PRN PRN Reason: Insomnia Stop: 11/13/19 13:39 Hydroxyzine HCl (Vistaril) 25 mg PO Q4H PRN PRN Reason: Anxiety Stop: 11/13/19 13:39 Magnesium Hydroxide (Milk Of Magnesia) 30 ml PO DAILY PRN PRN Reason: Constipation Stop: 11/13/19 13:39 Magnesium Oxide (Mag-Ox) 400 mg PO DAILY MAG Stop: 11/14/19 08:59 Last Admin: 10/27/19 09:11 Dose: 400 mg Documented by: Polyethylene Glycol (Miralax Powder Packet) 17 gm PO DAILY MAG Stop: 11/14/19 08:59 Last Admin: 10/27/19 09:12 Dose: 17 gm Documented by: Potassium Chloride (Klor-Con M20) 20 meq PO DAILY MAG Stop: 11/14/19 08:59 Last Admin: 10/27/19 09:11 Dose: 20 meq Documented by: Senna/Docusate Sodium (Senokot S) 1 tab PO QAM MAG Stop: 11/14/19 08:59 Last Admin: 10/27/19 09:12 Dose: 1 tab Documented by: Sodium Chloride (Bradley Nasal) 1 - 2 sprays NA PRN PRN PRN Reason: Nasal Dryness/Congestion Stop: 11/13/19 13:39 Mental Health & Subst Abuse Tx Psychiatrist Name of Psychiatrist: [facility] - Dr. Alves Psychiatrist's Psychiatric Appointment Comment: [address], [address] [facility] [address], [address], [place] [address] Therapist Name of Therapist: none Truck Rental Manager Name of Truck Rental Manager: Shruti Mcbride Phone Number for Truck Rental Manager: [phone] Case Management Appointment Comment: Comes to see you at the [facility] Post Discharge Appointments Primary Care Physician Name Of Family Doctor: [facility] - Dr. Jeff Lopez Primary Care Provider Appointment Comment: [address], [address], [place] [address] Neurologist Name of Neurologist: [facility] - Dr. Caal Neurologist's Date of Appointment with Neurologist: 11/17/19 Neurology Appointment Comment: [address], [place] [address] Contact Information Discharge Contact Information Comment: JERRELL BRYAN
[2019-10-27] MEDS: cloZAPine 100 MG TAB PO SCH (20:41)
[2019-10-28] MEDS: BENZTROPINE MESYLATE 1 MG TAB PO SCH ×2 (08:39→20:14)
[2019-10-28] MEDS: DOCUSATE SODIUM 100 MG CAP PO SCH ×2 (08:40→20:14)
[2019-10-28] MEDS: POTASSIUM CHLORIDE 20 MEQ TABCR PO SCH (08:40)
[2019-10-28] MEDS: MAGNESIUM OXIDE 400 MG TAB PO SCH (08:40)
[2019-10-28] MEDS: DOCUSATE SODIUM/SENNA 50/8.6MG TAB PO SCH (08:41)
[2019-10-28] MEDS: POLYETHYLENE (MIRALAX) 17 GM PACK PO SCH (08:41)
--- NOTE | 2019-10-28 11:14 | Psychiatric Progress Note ---
Date of Service October 28, 2019 Impression / Recommendations Impression 74-year-old male with chronic schizophrenia who presented 10/08/2019 after he was found unresponsive at the [facility] and admitted to taking a Tylenol overdose in an attempt to end his life. Admitted to the hospitalist service for 6 days, and transferred voluntarily to our unit on 10/14/19. He was on an involuntary 305 outpatient commitment converted to inpatient on 10/16/19. He sustained hepatic damage with significant elevations in AST and ALT, and we are continuing to follow those for resolution. All of his medications were held on the medical service, with ziprasidone being re-titrated at time of transfer to our unit. Mirtazapine and Xanax were discontinued as he reported they were ineffective. He was started on temazepam while on the hospitalist service for reports of poor sleep, and this medication has appeared to be effective - will need to determine discharge plans given history of benzodiazepine abuse; however, patient is likely to be discharged back to his CRR where medication can be monitored. Pt did consent to retrial of Clozaril starting 10/17, with titration as tolerated. Pt continues to report AH and suicidal ideation, stating he is unable to contract for safety outside of the hospital setting at this time. (1) Schizophrenia: 10/14 - Continue ziprasidone as initiated on the medical floor - resume 80mg BID dosing with meals - Continue benztropine 0.5mg as needed for reports of stiffness, though it remains unclear if this is truly related to his antipsychotic medication - Mirtazapine was discontinued on the medical floor as patient feels it had been ineffective - Continue temazepam 15mg qHS for sleep - at least while hospitalized in a supervised setting, as patient has a history of benzodiazepine abuse - Will coordinate treatment with patient's outpatient psychiatric supports - Encourage participation in group and recreational programming 10/15 -Continue ziprasidone; reviewed fasting lipid profile and fasting glucose fro m 02/2019, all values were within normal limits. -Discussed trial of clozapine; patient states that he believes he was on this medication in the past and that it was ineffective. Continue to provide education and encourage retrial, as he has had limited response to multiple other antipsychotics, and it would also help address suicidal thoughts in addition to psychosis. -Involve outpatient dependency case manager and coordinate with psychiatrist, Dr. Alves. 10/16 -The plan is to continue ziprasidone 80 mg twice a day. We discussed other treatment options with the patient, and he says that he is not interested in trying the various options suggested. He tends to respond in the affirmative every time he is asked whether he has ever taken a number of specific medications, and replies in each instance "it did not help." He does say, somewhat convincingly, that he took clozapine (dose unspecified and unknown by the patient) a number of years ago for "a month or 2," and that it did not help. Re-challenging the patient with clozapine may be helpful, but at present the patient indicates that he will refuse to take it. -The patient hesitates when asked about loxapine and perphenazine, but then says that he has taken both. Loxapine is not on the hospital formulary. Today, the patient says that he is not interested in trying either of these medications "again." -Today, the patient tells us that he "really does not" want to [facility] ("[place] although he had previously said that he might be interested in doing that. He adds that he does feel safer in a hospital, but feels that he would like to work towards being able to be discharged back to the community at this point. 3 --reconsented for retrial of Clozaril following review of CBC and EKG, patient aware to monitor constipation and sialorrhea and notify staff. will dose at hs and titrate by 25 mg nightly, repeat CBC in 1 week. 10/18--titrate Clozaril to 50 mg po qhs, Dr. Campos notified to consider EKG for re peat QTC on med combo as dose is increased, EPS apparently predates start of Clozaril and is not new, he is agreeable to add 0.5 mg Cogentin standing order as trial basis. 3 - Continue clozapine titration (now ordered for automatic titration of 25mg each evening), pt to receive 75mg tonight - Pt reports his condition remains unchanged at this time, but is aware that clozapine will need to be titrated to an effective dose range - At this time, patient maintains his desire would be for eventual discharge back to the [facility] - no longer requesting [place] referral - He remains suicidal and continues to report head buzzing and auditory hallucinations that are overwhelming to him 3 - Continue clozapine titration - pt to receive 100mg tonight - Will reduce ziprasidone to 60mg BID given continued titration of clozapine and reported ineffectiveness of the medication - will order an EKG for tomorrow morning, given cross-titration putting patient at increased risk of QTc prolongation. - Ongoing discussions regarding discharge planning - Pt continues to verbalize SI and feels he cannot contract for safety outside of the hospital setting 10/21 - Clozapine to be titrated to 125mg this evening; will continue ziprasidone 60mg BID for now though can consider ongoing taper - EKG ordered this morning, and reviewed QTc 445 - Reports ongoing SI - stating he is "pretty d*mn close" to wanting to - Discharge planning meeting scheduled for tomorrow 10/22 -Discharge remaining has been postponed. -Ziprasidone was held this morning, and the patient's cognition seems to have cleared. He is fully oriented and has not shown evidence of confusion. The patient, himself, notes that his thinking does seem to be more clear than it had been. -We will further titrate clozapine 250 mg at bedtime and 25 mg in the morning. -Because of persistent disturbing auditory hallucinations that the patient reports prevent him from easily inducing and maintaining sleep we will increase his dose of temazepam from 15 mg at bedtime for sleep to a dose of 22.5 mg at bedtime as needed sleep. -Although the patient's cognition seems to have improved, staff recall that during at least 1 previous admission the patient had similar mental status alterations and a urinary tract infection was found to been contributory. For that reason, we have ordered a urinalysis. -The patient has been demonstrating a shuffling gait, and on testing today a substantial degree of cogwheel rigidity was noted. The patient also reports a feeling "jumpy" and "restless." He had been receiving benztropine 0.5 mg twice a day, and while this may have been helpful, it seems not to have been fully effective. We will try trihexyphenidyl 2 mg stat and then 2 mg twice a day, and titrate further as indicated. 10/23 - Titrate clozapine to 25mg qAM and 200mg qHS - continue to hold ziprasidone at this time - Pt continues to reports stiffness and difficulty with ambulation, given that we are continuing to titrate clozapine we will order an additional prn dose of trihexyphenidyl 2mg with consideration to schedule the dose if necessary - UA results reviewed - no indication for current UTI - Will need to continue to discuss appropriate discharge timeline - patient remains suicidal 10/24 - Given concern for confusion, EPS and parkinsonism, morning dose of clozapine was held - Will reduce patient's dose to 150mg qHS and plan for a slower titration. This dosage continues to be subtherapeutic, and patient will require advancement of dose as tolerated - Will discontinue trihexyphenidyl due to concern for urinary retention - will resume benztropine 1mg BID for ongoing stiffness and EPS - Will plan to reduce dose of temazepam to 7.5mg with a one-time repeat if necessary - Pt placed on MNPR due to ambulatory concerns, somewhat disruptive behavior related to his physical complaints, and need for close observation at this time 10/27 --resume low dose Restoril as seems more disorganized with poorer quality sleep, reviewed can impact risk of falls, ?anticholinergic side effects (2) Tylenol overdose: 10/14 - Continue management per medical team - Recheck LFTs tomorrow morning. Today, AST 70, ALT 631. 10/15 -Continue to trend down. AST 54, ALT 538. We will reorder LFTs for Saturday. Avoid hepatotoxic agents. 10/16 -Patient reports that he remains suicidal and confirms that his overdose of Tylenol was taken with the intent of causing his own . (3) Hypertension: 10/14 - Home medication includes clonidine 0.1mg qHS - Will continue to monitor blood pressure with daily vitals, consider resuming 10/20 - We have continued daily blood pressures, some of which have been mildly elevated but not consistently - Given increased fatigue and concern for falls related to intermittent unsteadiness with ambulation, will continue to hold clonidine at this time 10/22 -Today, the patient's blood pressure is within normal limits. (4) Benzodiazepine abuse: 10/14 - Historical diagnosis of benzodiazepine abuse - Will not continue home dose of alprazolam - but will offer temazepam 15mg qHS for sleep as it has been effective - Will need to consider the safety of this medication regimen, and may suggest discontinuation of benzodiazepines at discharge given his history - Benzodiazepines are not recommended for the patient if he would be discharged to an unsupervised setting or expected to manage his own medication administration 10/16 -The patient is history of benzodiazepine abuse is noted. That history not withstanding, at seems apparent that the only hypnotic medication that has been consistently effective for this patient has been temazepam, and there is no evidence that he has been misusing this medication in the community prior to admission. -The material risks of temazepam, including but not limited to, risk of a physical habituation, risk of complicated and possibly fatal withdrawal symptoms, risk of accidents, falls and other injuries, as well as risk of worsening depression and clouded consciousness/cognitive impairment were r eviewed with the patient, and he responded by saying, "I know. But it is the only thing that works. I really need to sleep, and without it the voices keep me awake all night." 10/22 -The patient's history of benzodiazepine continues to be noted. However, the patient's current condition, we continue to feel that the use of temazepam for sleep is medically necessary and appropriate. 10/25--d/c temazepam as seems to be contributing to AMS (5) Auditory hallucinations: 10/16 -Patient's chief complaint has to do with persistent persecutory auditory hallucinations. He describes the voices as being "electronically generated," and although he tells us that he does not know the source of the electronically generated voices, he says that he has no doubt that they are real and are coming from some entity that is trying to torture and/or kill him. His explanation for the suicide attempt was not that he has been depressed, but, instead, because he feels tortured by the voices and finds that he can no longer tolerate hearing them and no longer tolerate feeling terrorized by them. Patient also explains that he would rather at his own hand than risk being murdered by unknown forces and unknown means. -The patient's condition has been largely treatment resistant to psychiatric medications. With each antipsychotic medication mentioned, the patient's response has been to assert that the specific medicine mentioned has been tried and was not effective, or has been tried and caused worsening symptoms. Today, he asserts that he has taken clozapine in the past, but that it was not effective. He has unable to identify the dose, and does not recall when or where it was prescribed, but says that he believes that he took it for "a month or 2" before it was discontinued as ineffective. Other options for the patient might be a trial of perphenazine or loxapine. For now, the patient has indicated that he would prefer to remain on Geodon 80 mg twice a day. 3 - Auditory hallucinations are ongoing. Pt does report that the voices are quieter, but when asked for how long he states "just now, since you asked" - Unclear how reliable patient's reports are on this topic, though it is anticipated ongoing titration of clozapine may be helpful for this 10/21 - Pt more focused on "head buzzing" today, does not mention auditory hallucinations today though this does not mean he is not experiencing them 6 -Today, the patient reports that he is troubled both by "a buzzing sound" in both ears, as well as by voices". He tells us that he believes that the voices are being generated by a computer and that the threats that are made through the's "voices" are genuine and represent a mortal danger. He insists that he is being told that he is going to be murdered. -I tried to talk to the patient about the fact that his records, going back many years, speak to the presence of similar perceptual disturbances and similar believes. The patient responds by saying, "they have come close to killing me a number of times. 1 of these days they are going to do it!" -We are discontinuing Geodon today and will be increasing his dose of c lozapine, beginning tonight. The new dose of clozapine will be 150 mg at bedtime and 25 mg in the morning. We expect that we will need to continue to titrate. We will also reintroduce clozapine, albeit at a lower dose, should his psychiatric condition worsen. Our concern at this point is excess sedation associated with our current cross titration of Geodon and clozapine. 10/23 - Pt denies significant change from above at this time 10/24 - Ongoing, unchanged with current dose of clozapine - pt would likely require further titration of clozapine to therapeutic range; however, this titration must be balanced with concerns the medication may be causing EPS and parkinsonism - Will reduce dose of clozapine to 150mg qHS and suggest reduced pace of titration Risk Factors Assessment Male: Yes : Yes Do You Have Access To A Gun?: No Health Problems: No Mental Health Diagnoses: Yes Substance Use Disorders: Yes Previous Attempt: Yes Family History of Suicide: Yes (cousin) Previous Psychiatric Hospitalization: Yes Hopelessness: Yes Protective Factors Assessment Mormon Beliefs: No : No Responsible for Young Children: No Employed: No Stable Relationships: No Supportive Family: No Good Rapport with Provider: No Interval History Identifying Information SCOTT ROBERTO is a 74-year-old M who currently lives in [place] at the [facility]. Pt has a history of schizophrenia and this is his fourth psychiatric admission to our unit in roughly the last 7 months, with one admission to [facility] in that time as well. Pt was admitted on 10/14/19 12:33 on a 201 voluntary commitment after being treated on the medical floor since 10/09/2019 after an intentional Tylenol overdose. 306 conversion hearing was held on 10/16/2019 and his 305 IOC was converted to an inpatient commitment. Chief Complaint "I can't sleep", staff report slept >8 hrs Review of Systems Sleep Information Total Hours of Sleep: 8.25 Sleep Comments: pt on q-15 minute checks Meal Information Percent Meal Consumed - Breakfast: 100 Percent Meal Consumed - Lunch: 100 Percent Meal Consumed - Dinner: 100 Subjective Subjective Patient was seen & assessed and interval progress reviewed with treatment team, had episode of urinating in his hospital mug. UA sent. He may have experienced more confusion yesterday as multiple room switches. Physical Exam Psychiatric Orientation: alert Apperance: + disheveled Eye Contact: + poor eye contact Motor Behavior: no abnormal motor movements and + psychomotor retardation speech is non-spontaneous Affect: + depressed affect Mood: + depressed mood Thought Process: + concrete thought process Thought Content: + preoccupation ("that's private") he will not elaborate, "that's private" Homicidal Thoughts: denies homicidal thoughts Hallucinations: + auditory hallucinations; no visual hallucinations Vital Signs (Past 24 Hours) Last Vital Signs Temp 36.6 C 10/28/19 06:37 Pulse 88 10/28/19 06:37 Resp 18 10/28/19 06:37 BP 137/89 10/28/19 06:37 Pulse Ox 96 10/22/19 23:30 Results & Data ([facility]) Current Inpatient Medications Current Inpatient Medications: Current Inpatient Medications Al Hydrox/Mg Hydrox/Simethicone (Maalox) 30 ml PO Q4H PRN PRN Reason: GI Upset Stop: 11/13/19 13:39 Benztropine Mesylate (Cogentin) 1 mg PO BID MAG Stop: 11/24/19 09:59 Last Admin: 10/28/19 08:39 Dose: 1 mg Documented by: Bismuth Subsalicylate (Kaopectate) 15 ml PO PRN PRN PRN Reason: Loose Stool Stop: 11/13/19 13:39 Clozapine (Clozapine) 150 mg PO HS MAG Stop: 11/24/19 21:59 Last Admin: 10/27/19 20:41 Dose: 150 mg Documented by: Docusate Sodium (Colace) 100 mg PO BID MAG Stop: 11/13/19 20:59 Last Admin: 10/28/19 08:40 Dose: 100 mg Documented by: Hydroxyzine HCl (Vistaril) 50 mg PO HSZ PRN PRN Reason: Insomnia Stop: 11/13/19 13:39 Hydroxyzine HCl (Vistaril) 25 mg PO Q4H PRN PRN Reason: Anxiety Stop: 11/13/19 13:39 Magnesium Hydroxide (Milk Of Magnesia) 30 ml PO DAILY PRN PRN Reason: Constipation Stop: 11/13/19 13:39 Magnesium Oxide (Mag-Ox) 400 mg PO DAILY MAG Stop: 11/14/19 08:59 Last Admin: 10/28/19 08:40 Dose: 400 mg Documented by: Polyethylene Glycol (Miralax Powder Packet) 17 gm PO DAILY MAG Stop: 11/14/19 08:59 Last Admin: 10/28/19 08:41 Dose: 17 gm Documented by: Potassium Chloride (Klor-Con M20) 20 meq PO DAILY MAG Stop: 11/14/19 08:59 Last Admin: 10/28/19 08:40 Dose: 20 meq Documented by: Senna/Docusate Sodium (Senokot S) 1 tab PO QAM MAG Stop: 11/14/19 08:59 Last Admin: 10/28/19 08:41 Dose: 1 tab Documented by: Sodium Chloride (Hagan Nasal) 1 - 2 sprays NA PRN PRN PRN Reason: Nasal Dryness/Congestion Stop: 11/13/19 13:39 Temazepam (Restoril) 7.5 mg PO HSZ MAG Stop: 11/27/19 21:59 Mental Health & Subst Abuse Tx Psychiatrist Name of Psychiatrist: [facility] - Dr. Alves Psychiatrist's Psychiatric Appointment Comment: [address], [address], [place] [address] Therapist Name of Therapist: none [employer] Press Operator Name of Radial Drill Press Operator: Shruti Mcbride Phone Number for Radial Drill Press Operator: [phone] Case Management Appointment Comment: Comes to see you at the [facility] Post Discharge Appointments Primary Care Physician Name Of Family Doctor: [facility] - Dr. Jeff Lopez Primary Care Provider Appointment Comment: [address], [address], [place] [address] Neurologist Name of Neurologist: [facility] [place] Dr. Caal Neurologist's Date of Appointment with Neurologist: 11/17/19 Neurology Appointment Comment: [address] [facility] [address], [place] [address] Contact Information Discharge Contact Information Comment[place] [facility] [place] [facility] (1) Schizophrenia Schizophrenia type: paranoid schizophrenia Qualified Code(s): F20.0 - Paranoid schizophrenia (2) Hypertension Hypertension type: essential hypertension Qualified Code(s): I10 - Essential (primary) hypertension
[2019-10-28 13:32] LABS: Appearance Urine Clear (Clear); Bilirubin Urine Negative (Negative); Blood Urine Negative (Negative); Color Urine Yellow; Glucose Urine UA Negative (Negative); Ketones Urine Negative (Negative); Leukocyte Esterase Urine Negative (Negative); Nitrite Urine Negative (Negative); Protein Urine Negative (Negative); Specific Gravity Urine 1.017 (1.000-1.030); Urobilinogen Urine Negative (Negative); pH Urine 7.5 (4.5-7.5)
[2019-10-28] MEDS: cloZAPine 100 MG TAB PO SCH (20:14)
[2019-10-28] MEDS: TEMAZEPAM 7.5 MG CAPSULE PO SCH (21:03)
[2019-10-29] MEDS: POLYETHYLENE (MIRALAX) 17 GM PACK PO SCH (08:51)
[2019-10-29] MEDS: POTASSIUM CHLORIDE 20 MEQ TABCR PO SCH (08:52)
[2019-10-29] MEDS: MAGNESIUM OXIDE 400 MG TAB PO SCH (08:52)
[2019-10-29] MEDS: BENZTROPINE MESYLATE 1 MG TAB PO SCH (08:52)
[2019-10-29] MEDS: DOCUSATE SODIUM 100 MG CAP PO SCH ×2 (08:53→20:44)
[2019-10-29] MEDS: DOCUSATE SODIUM/SENNA 50/8.6MG TAB PO SCH (08:53)
--- NOTE | 2019-10-29 10:59 | Psychiatric Progress Note ---
Date of Service October 29, 2019 Impression / Recommendations Impression 74-year-old male with chronic schizophrenia who presented 10/08/2019 after he was found unresponsive at the [facility] and admitted to taking a Tylenol overdose in an attempt to end his life. Admitted to the hospitalist service for 6 days, and transferred voluntarily to our unit on 10/14/19. He was on an involuntary 305 outpatient commitment converted to inpatient on 10/16/19. Mirtazapine and Xanax were discontinued as he reported they were ineffective. He was started on temazepam while on the hospitalist service for reports of poor sleep, and this medication has appeared to be effective - will need to determine discharge plans given history of benzodiazepine abuse; however, patient is likely to be discharged back to his [facility] where medication can be monitored. Pt did consent to retrial of Clozaril starting 10/17, with titration as tolerated. (italics reviewed, group summary) Pt continues to report AH and suicidal ideation, inpatient hospitalization remains the least restrictive setting for him at this time. (1) Schizophrenia: Italics=group stay summary, reviewed 10/14 - Continue ziprasidone as initiated on the medical floor - resume 80mg BID dosing with meals - Continue benztropine 0.5mg as needed for reports of stiffness, though it remains unclear if this is truly related to his antipsychotic medication - Mirtazapine was discontinued on the medical floor as patient feels it had been ineffective - Continue temazepam 15mg qHS for sleep - at least while hospitalized in a supervised setting, as patient has a history of benzodiazepine abuse - Will coordinate treatment with patient's outpatient psychiatric supports - Encourage participation in group and recreational programming 10/15 -Continue ziprasidone; reviewed fasting lipid profile and fasting glucose from 02/2019, all values were within normal limits. -Discussed trial of clozapine; patient states that he believes he was on this medication in the past and that it was ineffective. Continue to provide education and encourage retrial, as he has had limited response to multiple other antipsychotics, and it would also help address suicidal thoughts in addition to psychosis. -Involve outpatient shoe caser and coordinate with psychiatrist, Dr. Alves. 10/16 -The plan is to continue ziprasidone 80 mg twice a day. We discussed other treatment options with the patient, and he says that he is not interested in trying the various options suggested. He tends to respond in the affirmative every time he is asked whether he has ever taken a number of specific medications, and replies in each instance "it did not help." He does say, somewhat convincingly, that he took clozapine (dose unspecified and unknown by the patient) a number of years ago for "a month or 2," and that it did not help. Re-challenging the patient with clozapine may be helpful, but at present the patient indicates that he will refuse to take it. -The patient hesitates when asked about loxapine and perphenazine, but then says that he has taken both. Loxapine is not on the hospital formulary. Today, the patient says that he is not interested in trying either of these medications "again." -Today, the patient tells us that he "really does not" want to go to the [facility] ("[place] although he had previously said that he might be interested in doing that. He adds that he does feel safer in a hospital, but feels that he would like to work towards being able to be discharged back to the community at this point. 3 --reconsented for retrial of Clozaril following review of CBC and EKG, patient aware to monitor constipation and sialorrhea and notify staff. will dose at hs and titrate by 25 mg nightly, repeat CBC in 1 week. 10/18--titrate Clozaril to 50 mg po qhs, Dr. Campos notified to consider EKG for repeat QTC on med combo as dose is increased, EPS apparently predates start of Clozaril and is not new, he is agreeable to add 0.5 mg Cogentin standing order as trial basis. 3 - Continue clozapine titration (now ordered for automatic titration of 25mg each evening), pt to receive 75mg tonight - Pt reports his condition remains unchanged at this time, but is aware that clozapine will need to be titrated to an effective dose range - At this time, patient maintains his desire would be for eventual discharge back to the [facility] - no longer requesting [place] referral - He remains suicidal and continues to report head buzzing and auditory hallucinations that are overwhelming to him 3 - Continue clozapine titration - pt to receive 100mg tonight - Will reduce ziprasidone to 60mg BID given continued titration of clozapine and reported ineffectiveness of the medication - will order an EKG for tomorrow morning, given cross-titration putting patient at increased risk of QTc prolongation. - Ongoing discussions regarding discharge planning - Pt continues to verbalize SI and feels he cannot contract for safety outside of the hospital setting 10/21 - Clozapine to be titrated to 125mg this evening; will continue ziprasidone 60mg BID for now though can consider ongoing taper - EKG ordered this morning, and reviewed QTc 445 - Reports ongoing SI - stating he is "pretty d*mn close" to wanting to - Discharge planning meeting scheduled for tomorrow 10/22 -Discharge remaining has been postponed. -Ziprasidone was held this morning, and the patient's cognition seems to have cleared. He is fully oriented and has not shown evidence of confusion. The patient, himself, notes that his thinking does seem to be more clear than it had been. -We will further titrate clozapine 250 mg at bedtime and 25 mg in the morning. -Because of persistent disturbing auditory hallucinations that the patient reports prevent him from easily inducing and maintaining sleep we will increase his dose of temazepam from 15 mg at bedtime for sleep to a dose of 22.5 mg at bedtime as needed sleep. -Although the patient's cognition seems to have improved, staff recall that during at least 1 previous admission the patient had similar mental status alterations and a urinary tract infection was found to been contributory. For that reason, we have ordered a urinalysis. -The patient has been demonstrating a shuffling gait, and on testing today a substantial degree of cogwheel rigidity was noted. The patient also reports a feeling "jumpy" and "restless." He had been receiving benztropine 0.5 mg twice a day, and while this may have been helpful, it seems not to have been fully effective. We will try trihexyphenidyl 2 mg stat and then 2 mg twice a day, and titrate further as indicated. 10/23 - Titrate clozapine to 25mg qAM and 200mg qHS - continue to hold ziprasidone at this time - Pt continues to reports stiffness and difficulty with ambulation, given that we are continuing to titrate clozapine we will order an additional prn dose of trihexyphenidyl 2mg with consideration to schedule the dose if necessary - UA results reviewed - no indication for current UTI - Will need to continue to discuss appropriate discharge timeline - patient remains suicidal 10/24 - Given concern for confusion, EPS and parkinsonism, morning dose of clozapine was held - Will reduce patient's dose to 150mg qHS and plan for a slower titration. This dosage continues to be subtherapeutic, and patient will require advancement of dose as tolerated - Will discontinue trihexyphenidyl due to concern for urinary retention - will resume benztropine 1mg BID for ongoing stiffness and EPS - Will plan to reduce dose of temazepam to 7.5mg with a one-time repeat if necessary - Pt placed on MNPR due to ambulatory concerns, somewhat disruptive behavior related to his physical complaints, and need for close observation at this time 10/27 --resume low dose Restoril as seems more disorganized with poorer quality sleep, reviewed can impact risk of falls, ?anticholinergic side effects 10/28 --will decrease Cogentin given potential that anticholinergic side effects are worsening his cognition. (2) Tylenol overdose: 10/14 - Continue management per medical team - Recheck LFTs tomorrow morning. Today, AST 70, ALT 631. 10/15 -Continue to trend down. AST 54, ALT 538. We will reorder LFTs for Saturday. Avoid hepatotoxic agents. 10/16 -Patient reports that he remains suicidal and confirms that his overdose of Tylenol was taken with the intent of causing his own . (3) Hypertension: 10/14 - Home medication includes clonidine 0.1mg qHS - Will continue to monitor blood pressure with daily vitals, consider resuming 10/20 - We have continued daily blood pressures, some of which have been mildly elevated but not consistently - Given increased fatigue and concern for falls related to intermittent unsteadiness with ambulation, will continue to hold clonidine at this time 10/22 -Today, the patient's blood pressure is within normal limits. (4) Benzodiazepine abuse: 10/14 - Historical diagnosis of benzodiazepine abuse - Will not continue home dose of alprazolam - but will offer temazepam 15mg qHS for sleep as it has been effective - Will need to consider the safety of this medication regimen, and may suggest discontinuation of benzodiazepines at discharge given his history - Benzodiazepines are not recommended for the patient if he would be discharged to an unsupervised setting or expected to manage his own medication administration 10/16 -The patient is history of benzodiazepine abuse is noted. That history not withstanding, at seems apparent that the only hypnotic medication that has been consistently effective for this patient has been temazepam, and there is no evidence that he has been misusing this medication in the community prior to admission. -The material risks of temazepam, including but not limited to, risk of a physical habituation, risk of complicated and possibly fatal withdrawal symptoms, risk of accidents, falls and other injuries, as well as risk of worsening depression and clouded consciousness/cognitive impairment were reviewed with the patient, and he responded by saying, "I know. But it is the only thing that works. I really need to sleep, and without it the voices keep me awake all night." 10/22 -The patient's history of benzodiazepine continues to be noted. However, the patient's current condition, we continue to feel that the use of temazepam for sleep is medically necessary and appropriate. 10/25--d/c temazepam as seems to be contributing to AMS? (5) Auditory hallucinations: 10/16 -Patient's chief complaint has to do with persistent persecutory auditory hallucinations. He describes the voices as being "electronically generated," and although he tells us that he does not know the source of the electronically generated voices, he says that he has no doubt that they are real and are coming from some entity that is trying to torture and/or kill him. His explanation for the suicide attempt was not that he has been depressed, but, instead, because he feels tortured by the voices and finds that he can no longer tolerate hearing them and no longer tolerate feeling terrorized by them. Patient also explains that he would rather at his own hand than risk being murdered by unknown forces and unknown means. -The patient's condition has been largely treatment resistant to psychiatric medications. With each antipsychotic medication mentioned, the patient's response has been to assert that the specific medicine mentioned has been tried and was not effective, or has been tried and caused worsening symptoms. Today, he asserts that he has taken clozapine in the past, but that it was not effective. He has unable to identify the dose, and does not recall when or where it was prescribed, but says that he believes that he took it for "a month or 2" before it was discontinued as ineffective. Other options for the patient might be a trial of perphenazine or loxapine. For now, the patient has indicated that he would prefer to remain on Geodon 80 mg twice a day. 10/20 - Auditory hallucinations are ongoing. Pt does report that the voices are quieter, but when asked for how long he states "just now, since you asked" - Unclear how reliable patient's reports are on this topic, though it is anticipated ongoing titration of clozapine may be helpful for this 10/21 - Pt more focused on "head buzzing" today, does not mention auditory hallucinations today though this does not mean he is not experiencing them 10/22 -Today, the patient reports that he is troubled both by "a buzzing sound" in both ears, as well as by voices". He tells us that he believes that the voices are being generated by a computer and that the threats that are made through the's "voices" are genuine and represent a mortal danger. He insists that he is being told that he is going to be murdered. -I tried to talk to the patient about the fact that his records, going back many years, speak to the presence of similar perceptual disturbances and similar believes. The patient responds by saying, "they have come close to killing me a number of times. 1 of these days they are going to do it!" -We are discontinuing Geodon today and will be increasing his dose of clozapine, beginning tonight. The new dose of clozapine will be 150 mg at bedtime and 25 mg in the morning. We expect that we will need to continue to titrate. We will also reintroduce clozapine, albeit at a lower dose, should his psychiatric condition worsen. Our concern at this point is excess sedation associated with our current cross titration of Geodon and clozapine. 10/23 - Pt denies significant change from above at this time 10/24 - Ongoing, unchanged with current dose of clozapine - pt would likely require further titration of clozapine to therapeutic range; however, this titration must be balanced with concerns the medication may be causing EPS and parkinsonism - Will reduce dose of clozapine to 150mg qHS and suggest reduced pace of titration 10/28 --no change on current dose of Clozaril, will ask Dr. Dorsey to provide second opinion re: use and dose of Clozaril given course in past week. Risk Factors Assessment Male: Yes : Yes Do You Have Access To A Gun?: No Health Problems: No Mental Health Diagnoses: Yes Substance Use Disorders: Yes Previous Attempt: Yes Family History of Suicide: Yes (cousin) Previous Psychiatric Hospitalization: Yes Hopelessness: Yes Protective Factors Assessment Restoration Beliefs: No : No Responsible for Young Children: No Employed: No Stable Relationships: No Supportive Family: No Good Rapport with Provider: No Interval History Chief Complaint "I want to kill myself". Review of Systems Sleep Information Total Hours of Sleep: 7.25 Sleep Comments: pt on q-15 minute checks Meal Information Percent Meal Consumed - Breakfast: 75 Percent Meal Consumed - Lunch: 100 Percent Meal Consumed - Dinner: 100 Subjective Subjective Patient was seen & assessed and interval progress reviewed with nursing and social work. He relates ongoing angeles saying they want to kill him and doesn't want to live like this. He is confused about the unit, urinated around his toilet despite positive UA. He did restart Restoril last night and reports sleep was worse. He contracts to go to staff and there is no intent to harm self on unit. Physical Exam Psychiatric Orientation: alert Apperance: + disheveled Eye Contact: + poor eye contact Motor Behavior: no abnormal motor movements Speech: + abnormal rate/rhythm/volume of speech Affect: + depressed affect Mood: + depressed mood Thought Process: + concrete thought process (boredering on disorganized) Thought Content: + delusions suicidal due to angeles and awareness of worsening mental state Homicidal Thoughts: denies homicidal thoughts Hallucinations: + auditory hallucinations; no visual hallucinations Cognition: language grossly intact; + recent memory not intact and + attention not intact Insight: + poor insight Judgement: + poor judgement Vital Signs (Past 24 Hours) Last Vital Signs Temp 36.3 C L 10/29/19 06:50 Pulse 91 H 10/29/19 06:52 Resp 18 10/29/19 06:50 BP 113/77 10/29/19 06:52 Pulse Ox 96 10/22/19 23:30 Results & Data ([facility]) Laboratory Results Laboratory Results - last 24 hr 10/28/19 13:05 Urine Color Yellow Urine Appearance Clear Urine pH 7.5 Ur Specific Morgan 1.017 Urine Protein Negative Urine Glucose (UA) Negative Urine Ketones Negative Urine Blood Negative Urine Nitrite Negative Urine Bilirubin Negative Urine Urobilinogen Negative Ur Leukocyte Esterase Negative Current Inpatient Medications Current Inpatient Medications: Current Inpatient Medications Al Hydrox/Mg Hydrox/Simethicone (Maalox) 30 ml PO Q4H PRN PRN Reason: GI Upset Stop: 11/13/19 13:39 Benztropine Mesylate (Cogentin) 0.5 mg PO BID [facility] Stop: 11/28/19 20:59 Bismuth Subsalicylate (Kaopectate) 15 ml PO PRN PRN PRN Reason: Loose Stool Stop: 11/13/19 13:39 Clozapine (Clozapine) 150 mg PO HS MAG Stop: 11/24/19 21:59 Last Admin: 10/28/19 20:14 Dose: 150 mg Documented by: Docusate Sodium (Colace) 100 mg PO BID MAG Stop: 11/13/19 20:59 Last Admin: 10/29/19 08:53 Dose: 100 mg Documented by: Hydroxyzine HCl (Vistaril) 50 mg PO HSZ PRN PRN Reason: Insomnia Stop: 11/13/19 13:39 Hydroxyzine HCl (Vistaril) 25 mg PO Q4H PRN PRN Reason: Anxiety Stop: 11/13/19 13:39 Magnesium Hydroxide (Milk Of Magnesia) 30 ml PO DAILY PRN PRN Reason: Constipation Stop: 11/13/19 13:39 Magnesium Oxide (Mag-Ox) 400 mg PO DAILY [facility] Stop: 11/14/19 08:59 Last Admin: 10/29/19 08:52 Dose: 400 mg Documented by: Polyethylene Glycol (Miralax Powder Packet) 17 gm PO DAILY MAG Stop: 11/14/19 08:59 Last Admin: 10/29/19 08:51 Dose: 17 gm Documented by: Potassium Chloride (Klor-Con M20) 20 meq PO DAILY [facility] Stop: 11/14/19 08:59 Last Admin: 10/29/19 08:52 Dose: 20 meq Documented by: Senna/Docusate Sodium (Senokot S) 1 tab PO QAM [facility] Stop: 11/14/19 08:59 Last Admin: 10/29/19 08:53 Dose: 1 tab Documented by: Sodium Chloride (Yellow Pine Nasal) 1 - 2 sprays NA PRN PRN PRN Reason: Nasal Dryness/Congestion Stop: 11/13/19 13:39 Temazepam (Restoril) 7.5 mg PO HSZ [facility] Stop: 11/27/19 21:59 Last Admin: 10/28/19 21:03 Dose: 7.5 mg Documented by: Mental Health & Subst Abuse Tx Psychiatrist Name of Psychiatrist: [facility] - Dr. Alves Psychiatrist's Psychiatric Appointment Comment: [address], [address], [place] [address] Therapist Name of Therapist: none Saddle And Harness Maker Name of Saddle And Harness Maker: Shruti Mcbride Phone Number for Saddle And Harness Maker: [phone] Case Management Appointment Comment: Comes to see you at the [facility] Post Discharge Appointments Primary Care Physician Name Of Family Doctor: [facility] - Dr. Jeff Lopez Primary Care Provider Appointment Comment: [address], [address], [place] [address] Neurologist Name of Neurologist: [facility] - Dr. Caal Neurologist's Date of Appointment with Neurologist: 11/17/19 Neurology Appointment Comment: [address], [place] [address] Contact Information Discharge Contact Information Comment: [facility] (1) Schizophrenia Schizophrenia type: paranoid schizophrenia Qualified Code(s): F20.0 - Paranoid schizophrenia (2) Hypertension Hypertension type: essential hypertension Qualified Code(s): I10 - Essential (primary) hypertension
[2019-10-29] MEDS: cloZAPine 100 MG TAB PO SCH (20:44)
[2019-10-29] MEDS: BENZTROPINE MESYLATE 0.5 MG TAB PO SCH (20:44)
[2019-10-29] MEDS: TEMAZEPAM 7.5 MG CAPSULE PO SCH (20:46)
[2019-10-30] MEDS: DOCUSATE SODIUM 100 MG CAP PO SCH ×2 (09:19→20:44)
[2019-10-30] MEDS: POTASSIUM CHLORIDE 20 MEQ TABCR PO SCH (09:19)
[2019-10-30] MEDS: MAGNESIUM OXIDE 400 MG TAB PO SCH (09:19)
[2019-10-30] MEDS: POLYETHYLENE (MIRALAX) 17 GM PACK PO SCH (09:20)
[2019-10-30] MEDS: BENZTROPINE MESYLATE 0.5 MG TAB PO SCH (09:20)
[2019-10-30] MEDS: DOCUSATE SODIUM/SENNA 50/8.6MG TAB PO SCH (09:24)
--- NOTE | 2019-10-30 09:50 | Psychiatric Progress Note ---
Date of Service October 30, 2019 Impression / Recommendations Impression 74-year-old male with chronic schizophrenia who presented 10/08/2019 after he was found unresponsive at the [facility] and admitted to taking a Tylenol overdose in an attempt to end his life. Admitted to the hospitalist service for 6 days, and transferred voluntarily to our unit on 10/14/19. He was on an involuntary 305 outpatient commitment converted to inpatient on 10/16/19. Mirtazapine and Xanax were discontinued as he reported they were ineffective. He was started on temazepam while on the hospitalist service for reports of poor sleep, and this medication has appeared to be effective - will need to determine discharge plans given history of benzodiazepine abuse; however, patient is likely to be discharged back to his CRR where medication can be monitored. Pt did consent to retrial of Clozaril starting 10/17, with titration as tolerated. (italics reviewed, group summary) Pt continues to report AH and suicidal ideation, inpatient hospitalization remains the least restrictive setting for him at this time. (1) Schizophrenia: Italics=group stay summary, reviewed 10/14 - Continue ziprasidone as initiated on the medical floor - resume 80mg BID dosing with meals - Continue benztropine 0.5mg as needed for reports of stiffness, though it remains unclear if this is truly related to his antipsychotic medication - Mirtazapine was discontinued on the medical floor as patient feels it had been ineffective - Continue temazepam 15mg qHS for sleep - at least while hospitalized in a supervised setting, as patient has a history of benzodiazepine abuse - Will coordinate treatment with patient's outpatient psychiatric supports - Encourage participation in group and recreational programming 10/15 -Continue ziprasidone; reviewed fasting lipid profile and fasting glucose from 02/2019, all values were within normal limits. -Discussed trial of clozapine; patient states that he believes he was on this medication in the past and that it was ineffective. Continue to provide education and encourage retrial, as he has had limited response to multiple other antipsychotics, and it would also help address suicidal thoughts in addition to psychosis. -Involve outpatient hospice case manager and coordinate with psychiatrist, Dr. Alves. 10/16 -The plan is to continue ziprasidone 80 mg twice a day. We discussed other treatment options with the patient, and he says that he is not interested in trying the various options suggested. He tends to respond in the affirmative every time he is asked whether he has ever taken a number of specific medications, and replies in each instance "it did not help." He does say, somewhat convincingly, that he took clozapine (dose unspecified and unknown by the patient) a number of years ago for "a month or 2," and that it did not help. Re-challenging the patient with clozapine may be helpful, but at present the patient indicates that he will refuse to take it. -The patient hesitates when asked about loxapine and perphenazine, but then says that he has taken both. Loxapine is not on the hospital formulary. Today, the patient says that he is not interested in trying either of these medications "again." -Today, the patient tells us that he "really does not" want to go to the [facility] ("[place]"), although he had previously said that he might be interested in doing that. He adds that he does feel safer in a hospital, but feels that he would like to work towards being able to be discharged back to the community at this point. 3 --reconsented for retrial of Clozaril following review of CBC and EKG, patient aware to monitor constipation and sialorrhea and notify staff. will dose at hs and titrate by 25 mg nightly, repeat CBC in 1 week. 10/18--titrate Clozaril to 50 mg po qhs, Dr. Campos notified to consider EKG for repeat QTC on med combo as dose is increased, EPS apparently predates start of Clozaril and is not new, he is agreeable to add 0.5 mg Cogentin standing order as trial basis. 3 - Continue clozapine titration (now ordered for automatic titration of 25mg each evening), pt to receive 75mg tonight - Pt reports his condition remains unchanged at this time, but is aware that clozapine will need to be titrated to an effective dose range - At this time, patient maintains his desire would be for eventual discharge back to the [facility] - no longer requesting [place] referral - He remains suicidal and continues to report head buzzing and auditory hallucinations that are overwhelming to him 3 - Continue clozapine titration - pt to receive 100mg tonight - Will reduce ziprasidone to 60mg BID given continued titration of clozapine and reported ineffectiveness of the medication - will order an EKG for tomorrow morning, given cross-titration putting patient at increased risk of QTc prolongation. - Ongoing discussions regarding discharge planning - Pt continues to verbalize SI and feels he cannot contract for safety outside of the hospital setting 10/21 - Clozapine to be titrated to 125mg this evening; will continue ziprasidone 60mg BID for now though can consider ongoing taper - EKG ordered this morning, and reviewed QTc 445 - Reports ongoing SI - stating he is "pretty d*mn close" to wanting to - Discharge planning meeting scheduled for tomorrow 10/22 -Discharge remaining has been postponed. -Ziprasidone was held this morning, and the patient's cognition seems to have cleared. He is fully oriented and has not shown evidence of confusion. The patient, himself, notes that his thinking does seem to be more clear than it had been. -We will further titrate clozapine 250 mg at bedtime and 25 mg in the morning. -Because of persistent disturbing auditory hallucinations that the patient reports prevent him from easily inducing and maintaining sleep we will increase his dose of temazepam from 15 mg at bedtime for sleep to a dose of 22.5 mg at bedtime as needed sleep. -Although the patient's cognition seems to have improved, staff recall that during at least 1 previous admission the patient had similar mental status alterations and a urinary tract infection was found to been contributory. For that reason, we have ordered a urinalysis. -The patient has been demonstrating a shuffling gait, and on testing today a substantial degree of cogwheel rigidity was noted. The patient also reports a feeling "jumpy" and "restless." He had been receiving benztropine 0.5 mg twice a day, and while this may have been helpful, it seems not to have been fully effective. We will try trihexyphenidyl 2 mg stat and then 2 mg twice a day, and titrate further as indicated. 10/23 - Titrate clozapine to 25mg qAM and 200mg qHS - continue to hold ziprasidone at this time - Pt continues to reports stiffness and difficulty with ambulation, given that we are continuing to titrate clozapine we will order an additional prn dose of trihexyphenidyl 2mg with consideration to schedule the dose if necessary - UA results reviewed - no indication for current UTI - Will need to continue to discuss appropriate discharge timeline - patient remains suicidal 10/24 - Given concern for confusion, EPS and parkinsonism, morning dose of clozapine was held - Will reduce patient's dose to 150mg qHS and plan for a slower titration. This dosage continues to be subtherapeutic, and patient will require advancement of dose as tolerated - Will discontinue trihexyphenidyl due to concern for urinary retention - will resume benztropine 1mg BID for ongoing stiffness and EPS - Will plan to reduce dose of temazepam to 7.5mg with a one-time repeat if necessary - Pt placed on MNPR due to ambulatory concerns, somewhat disruptive behavior related to his physical complaints, and need for close observation at this time 10/27 --resume low dose Restoril as seems more disorganized with poorer quality sleep, reviewed can impact risk of falls, ?anticholinergic side effects 10/28 --will decrease Cogentin given potential that anticholinergic side effects are worsening his cognition. 10/29 - Will discontinue clozapine at this time - allow patient to clear for a period of time and then consider resuming an antipsychotic medication as he continues to experience auditory hallucinations - Will continue Cogentin, but switch to prn - unlikely to require regularly until/unless an antipsychotic medication is resumed. Agree with concern the medication may increase risk of confusion/falls - Resumed MNPR due to behaviors associated with confusion that are not compatible with and would be disruptive to a roommate at this time (2) Tylenol overdose: 10/14 - Continue management per medical team - Recheck LFTs tomorrow morning. Today, AST 70, ALT 631. 10/15 -Continue to trend down. AST 54, ALT 538. We will reorder LFTs for Saturday. Avoid hepatotoxic agents. 10/16 -Patient reports that he remains suicidal and confirms that his overdose of Tylenol was taken with the intent of causing his own . (3) Hypertension: 10/14 - Home medication includes clonidine 0.1mg qHS - Will continue to monitor blood pressure with daily vitals, consider resuming 10/20 - We have continued daily blood pressures, some of which have been mildly elevated but not consistently - Given increased fatigue and concern for falls related to intermittent unsteadiness with ambulation, will continue to hold clonidine at this time 10/22 -Today, the patient's blood pressure is within normal limits. (4) Benzodiazepine abuse: 10/14 - Historical diagnosis of benzodiazepine abuse - Will not continue home dose of alprazolam - but will offer temazepam 15mg qHS for sleep as it has been effective - Will need to consider the safety of this medication regimen, and may suggest discontinuation of benzodiazepines at discharge given his history - Benzodiazepines are not recommended for the patient if he would be discharged to an unsupervised setting or expected to manage his own medication administration 10/16 -The patient is history of benzodiazepine abuse is noted. That history not withstanding, at seems apparent that the only hypnotic medication that has been consistently effective for this patient has been temazepam, and there is no evidence that he has been misusing this medication in the community prior to admission. -The material risks of temazepam, including but not limited to, risk of a physical habituation, risk of complicated and possibly fatal withdrawal symptoms, risk of accidents, falls and other injuries, as well as risk of worsening depression and clouded consciousness/cognitive impairment were reviewed with the patient, and he responded by saying, "I know. But it is the only thing that works. I really need to sleep, and without it the voices keep me awake all night." 10/22 -The patient's history of benzodiazepine continues to be noted. However, the patient's current condition, we continue to feel that the use of temazepam for sleep is medically necessary and appropriate. 10/25--d/c temazepam as seems to be contributing to AMS? (5) Auditory hallucinations: 10/16 -Patient's chief complaint has to do with persistent persecutory auditory hallucinations. He describes the voices as being "electronically generated," and although he tells us that he does not know the source of the electronically generated voices, he says that he has no doubt that they are real and are coming from some entity that is trying to torture and/or kill him. His explanation for the suicide attempt was not that he has been depressed, but, instead, because he feels tortured by the voices and finds that he can no longer tolerate hearing them and no longer tolerate feeling terrorized by them. Patient also explains that he would rather at his own hand than risk being murdered by unknown forces and unknown means. -The patient's condition has been largely treatment resistant to psychiatric medications. With each antipsychotic medication mentioned, the patient's response has been to assert that the specific medicine mentioned has been tried and was not effective, or has been tried and caused worsening symptoms. Today, he asserts that he has taken clozapine in the past, but that it was not effective. He has unable to identify the dose, and does not recall when or where it was prescribed, but says that he believes that he took it for "a month or 2" before it was discontinued as ineffective. Other options for the patient might be a trial of perphenazine or loxapine. For now, the patient has indicated that he would prefer to remain on Geodon 80 mg twice a day. 3/ - Auditory hallucinations are ongoing. Pt does report that the voices are quieter, but when asked for how long he states "just now, since you asked" - Unclear how reliable patient's reports are on this topic, though it is anticipated ongoing titration of clozapine may be helpful for this 10/21 - Pt more focused on "head buzzing" today, does not mention auditory hallucinations today though this does not mean he is not experiencing them 36 -Today, the patient reports that he is troubled both by "a buzzing sound" in both ears, as well as by voices". He tells us that he believes that the voices are being generated by a computer and that the threats that are made through the's "voices" are genuine and represent a mortal danger. He insists that he is being told that he is going to be murdered. -I tried to talk to the patient about the fact that his records, going back many years, speak to the presence of similar perceptual disturbances and similar believes. The patient responds by saying, "they have come close to killing me a number of times. 1 of these days they are going to do it!" -We are discontinuing Geodon today and will be increasing his dose of clozapine, beginning tonight. The new dose of clozapine will be 150 mg at bedtime and 25 mg in the morning. We expect that we will need to continue to titrate. We will also reintroduce clozapine, albeit at a lower dose, should his psychiatric condition worsen. Our concern at this point is excess sedation associated with our current cross titration of Geodon and clozapine. 10/23 - Pt denies significant change from above at this time 10/24 - Ongoing, unchanged with current dose of clozapine - pt would likely require further titration of clozapine to therapeutic range; however, this titration must be balanced with concerns the medication may be causing EPS and parkinsonism - Will reduce dose of clozapine to 150mg qHS and suggest reduced pace of titration 10/28 --no change on current dose of Clozaril, will ask Dr. Dorsey to provide second opinion re: use and dose of Clozaril given course in past week. 10/29 - No change in AH at this time Risk Factors Assessment Male: Yes : Yes Do You Have Access To A Gun?: No Health Problems: No Mental Health Diagnoses: Yes Substance Use Disorders: Yes Previous Attempt: Yes Family History of Suicide: Yes (cousin) Previous Psychiatric Hospitalization: Yes Hopelessness: Yes Protective Factors Assessment Tenriism Beliefs: No : No Responsible for Young Children: No Employed: No Stable Relationships: No Supportive Family: No Good Rapport with Provider: No Interval History Identifying Information SCOTT ROBERTO is a 74-year-old M who currently lives in [place] at the [facility]. Pt has a history of schizophrenia and this is his fourth psychiatric admission to our unit in roughly the last 7 months, with one admission to [facility] in that time as well. Pt was admitted on 10/14/19 12:33 on a 201 voluntary commitment after being treated on the medical floor since 10/09/2019 after an intentional Tylenol overdose. 306 conversion hearing was held on 10/16/2019 and his 305 IOC was converted to an inpatient commitment. Chief Complaint "Um, I'm still not so good. I think we need to do something with the Clozaril." Review of Systems Notes Constitutional: reports ongoing gait instability Cardiovascular: denied Respiratory: denied Gastrointestinal: denied Neurological: reports confusion Psychiatric: denies symptoms other than stated above Total of at least 10 systems reviewed, pertinent positives as above and in HPI. Sleep Information Total Hours of Sleep: 7 Sleep Comments: pt on q-15 minute checks Meal Information Percent Meal Consumed - Breakfast: 75 Percent Meal Consumed - Lunch: 100 Percent Meal Consumed - Dinner: 100 Subjective Subjective Patient was seen & assessed and interval progress reviewed with treatment team. Staff report the patient has been experiencing intermittent confusion, i.e. not recognizing when his meal tray has been laid out, requesting additional beverages despite having full ones in front of him, and ongoing disorientation on the unit. Pt has not been appropriate to participate in a meeting regarding discharge planning at this time. Pt was seen today to assess progress since admission. Pt provided verbal consent to allow Shereen Muhammad PA-C to observe today' s encounter. Pt states he is not doing well again today. He requests that something be done with his clozapine, as he feels a higher dose is needed to help with the ongoing auditory hallucinations. He also requests a neurology consultation, as he is able to recognize his increased confusion. This provider explained our current treatment recommendations - which actually include discontinuing clozapine due to concern it is contributing to increased confusion and EPS. Pt was agreeable with a period of time off medications as, "none of them work anyway." This provider explained to the patient that there is ongoing concern surrounding his hallucinations, and the level of hopelessness and suicidality associated with their presence. As his recent confusion seems to be most urgent, we will tackle this concern first and then explore alternative antipsychotic medications. Pt verbalized understanding of this idea and is agreeable with the plan. He continues to request a neurology consultation. We discussed plan to proceed with discontinuation of clozapine - but that if confusion and gait instability persist that this may be an appropriate next course of action. Pt admits to ongoing auditory hallucinations, "head buzzing", confusion and gait instability. He continues to report suicidal ideation and does not believe he is physically or emotionally ready for discharge at this you e. He denies other needs or concerns today. Physical Exam Psychiatric Orientation: alert and oriented x 3 (only specific date was unknown ) Apperance: appropriately dressed (wearing t-shirt and jeans), + disheveled and appeared stated age Eye Contact: good eye contact Motor Behavior: steady gait and station and no abnormal motor movements Speech: normal rate/rhythm/volume of speech (brief responses to questions) Affect: + flat affect (briefly smiles after telling provider he did not know is name (in jest)) Mood: + depressed mood and + anxious mood Thought Process: goal directed thought process and + concrete thought process Thought Content: + preoccupation (with voices and "head buzzing"), reality based without delusions and + hopelessness Suicidal Thoughts: + reports suicidal thoughts and + reports suicidal intent Homicidal Thoughts: denies homicidal thoughts Hallucinations: + auditory hallucinations; no visual hallucinations Cognition: attention grossly intact and language grossly intact though has been noted to have intermittent moments of confusion throughout the day Insight: + impaired insight Judgement: + impaired judgement Vital Signs (Past 24 Hours) Last Vital Signs Temp 36.9 C 10/30/19 06:47 Pulse 116 H 10/30/19 06:48 Resp 18 10/30/19 06:47 BP 133/84 10/30/19 06:48 Pulse Ox 96 10/22/19 23:30 Results & Data ([facility]) Current Inpatient Medications Current Inpatient Medications: Current Inpatient Medications Al Hydrox/Mg Hydrox/Simethicone (Maalox) 30 ml PO Q4H PRN PRN Reason: GI Upset Stop: 11/13/19 13:39 Benztropine Mesylate (Cogentin) 0.5 mg PO BID [facility] Stop: 11/28/19 20:59 Last Admin: 10/30/19 09:20 Dose: 0.5 mg Documented by: Bismuth Subsalicylate (Kaopectate) 15 ml PO PRN PRN PRN Reason: Loose Stool Stop: 11/13/19 13:39 Docusate Sodium (Colace) 100 mg PO BID [facility] Stop: 11/13/19 20:59 Last Admin: 10/30/19 09:19 Dose: 100 mg Documented by: Hydroxyzine HCl (Vistaril) 50 mg PO HSZ PRN PRN Reason: Insomnia Stop: 11/13/19 13:39 Hydroxyzine HCl (Vistaril) 25 mg PO Q4H PRN PRN Reason: Anxiety Stop: 11/13/19 13:39 Magnesium Hydroxide (Milk Of Magnesia) 30 ml PO DAILY PRN PRN Reason: Constipation Stop: 11/13/19 13:39 Magnesium Oxide (Mag-Ox) 400 mg PO DAILY [facility] Stop: 11/14/19 08:59 Last Admin: 10/30/19 09:19 Dose: 400 mg Documented by: Polyethylene Glycol (Miralax Powder Packet) 17 gm PO DAILY [facility] Stop: 11/14/19 08:59 Last Admin: 10/30/19 09:20 Dose: 17 gm Documented by: Potassium Chloride (Klor-Con M20) 20 meq PO DAILY [facility] Stop: 11/14/19 08:59 Last Admin: 10/30/19 09:19 Dose: 20 meq Documented by: Senna/Docusate Sodium (Senokot S) 1 tab PO QAM MAG Stop: 11/14/19 08:59 Last Admin: 10/30/19 09:24 Dose: 1 tab Documented by: Sodium Chloride (Castor Nasal) 1 - 2 sprays NA PRN PRN PRN Reason: Nasal Dryness/Congestion Stop: 11/13/19 13:39 Temazepam (Restoril) 7.5 mg PO HSZ MAG Stop: 11/27/19 21:59 Last Admin: 10/29/19 20:46 Dose: 7.5 mg Documented by: Mental Health & Subst Abuse Tx Psychiatrist Name of Psychiatrist: [facility] - Dr. Alves Psychiatrist's Psychiatric Appointment Comment: [address], [address], [place] [address] Therapist Name of Therapist: none Information Architect Name of Information Architect: Shruti Mcbride Phone Number for Information Architect: [phone] Case Management Appointment Comment: Comes to see you at the [facility] Post Discharge Appointments Primary Care Physician Name Of Family Doctor: [facility] - Dr. Jeff Lopez Primary Care Provider Appointment Comment: [address], [address], [place] [address] Neurologist Name of Neurologist: [facility] [place] - Dr. Caal Neurologist's Date of Appointment with Neurologist: 11/17/19 Neurology Appointment Comment: [address] [facility] [address], [place] [address] Contact Information Discharge Contact Information Comment: [facility] (1) Schizophrenia Schizophrenia type: paranoid schizophrenia Qualified Code(s): F20.0 - Paranoid schizophrenia (2) Hypertension Hypertension type: essential hypertension Qualified Code(s): I10 - Essential (primary) hypertension
[2019-10-30] MEDS: TEMAZEPAM 7.5 MG CAPSULE PO SCH (20:44)
[2019-10-31] MEDS: POTASSIUM CHLORIDE 20 MEQ TABCR PO SCH (08:47)
[2019-10-31] MEDS: MAGNESIUM OXIDE 400 MG TAB PO SCH (08:47)
[2019-10-31] MEDS: DOCUSATE SODIUM 100 MG CAP PO SCH ×2 (08:47→20:30)
[2019-10-31] MEDS: DOCUSATE SODIUM/SENNA 50/8.6MG TAB PO SCH (08:47)
[2019-10-31] MEDS: POLYETHYLENE (MIRALAX) 17 GM PACK PO SCH (08:47)
--- NOTE | 2019-10-31 15:06 | Psychiatric Progress Note ---
Date of Service October 31, 2019 Impression / Recommendations Impression 74-year-old male with chronic schizophrenia who presented 10/08/2019 after he was found unresponsive at the [facility] and admitted to taking a Tylenol overdose in an attempt to end his life. Admitted to the hospitalist service for 6 days, and transferred voluntarily to our unit on 10/14/19. He was on an involuntary 305 outpatient commitment converted to inpatient on 10/16/19. Mirtazapine and Xanax were discontinued as he reported they were ineffective. He was started on temazepam while on the hospitalist service for reports of poor sleep, and this medication has appeared to be effective - will need to determine discharge plans given history of benzodiazepine abuse; however, patient is likely to be discharged back to his [facility] where medication can be monitored. Pt did consent to retrial of Clozaril starting 10/17, with titration as tolerated. (italics reviewed, group summary) Pt continues to report AH and suicidal ideation, inpatient hospitalization remains the least restrictive setting for him at this time. Clozaril ceased 10/29 given worsening disorganization and disorientation while on it that apepars to be lessening today with ongoing psychotic presentation and command AH to kill self and related SI (1) Schizophrenia: Italics=group stay summary, reviewed 10/14 - Continue ziprasidone as initiated on the medical floor - resume 80mg BID dosing with meals - Continue benztropine 0.5mg as needed for reports of stiffness, though it remains unclear if this is truly related to his antipsychotic medication - Mirtazapine was discontinued on the medical floor as patient feels it had been ineffective - Continue temazepam 15mg qHS for sleep - at least while hospitalized in a supervised setting, as patient has a history of benzodiazepine abuse - Will coordinate treatment with patient's outpatient psychiatric supports - Encourage participation in group and recreational programming 10/15 -Continue ziprasidone; reviewed fasting lipid profile and fasting glucose from 02/2019, all values were within normal limits. -Discussed trial of clozapine; patient states that he believes he was on this medication in the past and that it was ineffective. Continue to provide education and encourage retrial, as he has had limited response to multiple other antipsychotics, and it would also help address suicidal thoughts in addition to psychosis. -Involve outpatient case mgr and coordinate with psychiatrist, Dr. Alves. 10/16 -The plan is to continue ziprasidone 80 mg twice a day. We discussed other treatment options with the patient, and he says that he is not interested in trying the various options suggested. He tends to respond in the affirmative every time he is asked whether he has ever taken a number of specific medications, and replies in each instance "it did not help." He does say, somewhat convincingly, that he took clozapine (dose unspecified and unknown by the patient) a number of years ago for "a month or 2," and that it did not help. Re-challenging the patient with clozapine may be helpful, but at present the patient indicates that he will refuse to take it. -The patient hesitates when asked about loxapine and perphenazine, but then says that he has taken both. Loxapine is not on the hospital formulary. Today, the patient says that he is not interested in trying either of these medications "again." -Today, the patient tells us that he "really does not" want to go to the [facility] ("[facility] although he had previously said that he might be interested in doing that. He adds that he does feel safer in a hospital, but feels that he would like to work towards being able to be discharged back to the community at this point. 3 --reconsented for retrial of Clozaril following review of CBC and EKG, patient aware to monitor constipation and sialorrhea and notify staff. will dose at hs and titrate by 25 mg nightly, repeat CBC in 1 week. 10/18--titrate Clozaril to 50 mg po qhs, Dr. Campos notified to consider EKG for repeat QTC on med combo as dose is increased, EPS apparently predates start of Clozaril and is not new, he is agreeable to add 0.5 mg Cogentin standing order as trial basis. 3 - Continue clozapine titration (now ordered for automatic titration of 25mg each evening), pt to receive 75mg tonight - Pt reports his condition remains unchanged at this time, but is aware that clozapine will need to be titrated to an effective dose range - At this time, patient maintains his desire would be for eventual discharge back to the [facility] - no longer requesting [facility] referral - He remains suicidal and continues to report head buzzing and auditory hallucinations that are overwhelming to him 3 - Continue clozapine titration - pt to receive 100mg tonight - Will reduce ziprasidone to 60mg BID given continued titration of clozapine and reported ineffectiveness of the medication - will order an EKG for tomorrow morning, given cross-titration putting patient at increased risk of QTc prolongation. - Ongoing discussions regarding discharge planning - Pt continues to verbalize SI and feels he cannot contract for safety outside of the hospital setting 10/21 - Clozapine to be titrated to 125mg this evening; will continue ziprasidone 60mg BID for now though can consider ongoing taper - EKG ordered this morning, and reviewed QTc 445 - Reports ongoing SI - stating he is "pretty d*mn close" to wanting to - Discharge planning meeting scheduled for tomorrow 10/22 -Discharge remaining has been postponed. -Ziprasidone was held this morning, and the patient's cognition seems to have cleared. He is fully oriented and has not shown evidence of confusion. The patient, himself, notes that his thinking does seem to be more clear than it had been. -We will further titrate clozapine 250 mg at bedtime and 25 mg in the morning. -Because of persistent disturbing auditory hallucinations that the patient reports prevent him from easily inducing and maintaining sleep we will increase his dose of temazepam from 15 mg at bedtime for sleep to a dose of 22.5 mg at bedtime as needed sleep. -Although the patient's cognition seems to have improved, staff recall that during at least 1 previous admission the patient had similar mental status alterations and a urinary tract infection was found to been contributory. For that reason, we have ordered a urinalysis. -The patient has been demonstrating a shuffling gait, and on testing today a substantial degree of cogwheel rigidity was noted. The patient also reports a feeling "jumpy" and "restless." He had been receiving benztropine 0.5 mg twice a day, and while this may have been helpful, it seems not to have been fully effective. We will try trihexyphenidyl 2 mg stat and then 2 mg twice a day, and titrate further as indicated. 10/23 - Titrate clozapine to 25mg qAM and 200mg qHS - continue to hold ziprasidone at this time - Pt continues to reports stiffness and difficulty with ambulation, given that we are continuing to titrate clozapine we will order an additional prn dose of trihexyphenidyl 2mg with consideration to schedule the dose if necessary - UA results reviewed - no indication for current UTI - Will need to continue to discuss appropriate discharge timeline - patient remains suicidal 10/24 - Given concern for confusion, EPS and parkinsonism, morning dose of clozapine was held - Will reduce patient's dose to 150mg qHS and plan for a slower titration. This dosage continues to be subtherapeutic, and patient will require advancement of dose as tolerated - Will discontinue trihexyphenidyl due to concern for urinary retention - will resume benztropine 1mg BID for ongoing stiffness and EPS - Will plan to reduce dose of temazepam to 7.5mg with a one-time repeat if necessary - Pt placed on MNPR due to ambulatory concerns, somewhat disruptive behavior related to his physical complaints, and need for close observation at this time 10/27 --resume low dose Restoril as seems more disorganized with poorer quality sleep, reviewed can impact risk of falls, ?anticholinergic side effects 10/28 --will decrease Cogentin given potential that anticholinergic side effects are worsening his cognition. 10/29 - Will discontinue clozapine at this time - allow patient to clear for a period of time and then consider resuming an antipsychotic medication as he continues to experience auditory hallucinations - Will continue Cogentin, but switch to prn - unlikely to require regularly until/unless an antipsychotic medication is resumed. Agree with concern the medication may increase risk of confusion/falls - Resumed MNPR due to behaviors associated with confusion that are not compatible with and would be disruptive to a roommate at this time 10/30 - holding off starting a different antipsychotic at this time to give time to clear from potential worsening of presentation from clozapine trial, maintained MNPR for now (2) Tylenol overdose: 10/14 - Continue management per medical team - Recheck LFTs tomorrow morning. Today, AST 70, ALT 631. 10/15 -Continue to trend down. AST 54, ALT 538. We will reorder LFTs for Saturday. Avoid hepatotoxic agents. 10/16 -Patient reports that he remains suicidal and confirms that his overdose of Tylenol was taken with the intent of causing his own . (3) Hypertension: 10/14 - Home medication includes clonidine 0.1mg qHS - Will continue to monitor blood pressure with daily vitals, consider resuming 10/20 - We have continued daily blood pressures, some of which have been mildly elevated but not consistently - Given increased fatigue and concern for falls related to intermittent unsteadiness with ambulation, will continue to hold clonidine at this time 10/22 -Today, the patient's blood pressure is within normal limits. (4) Benzodiazepine abuse: 10/14 - Historical diagnosis of benzodiazepine abuse - Will not continue home dose of alprazolam - but will offer temazepam 15mg qHS for sleep as it has been effective - Will need to consider the safety of this medication regimen, and may suggest discontinuation of benzodiazepines at discharge given his history - Benzodiazepines are not recommended for the patient if he would be discharged to an unsupervised setting or expected to manage his own medication administration 10/16 -The patient is history of benzodiazepine abuse is noted. That history not withstanding, at seems apparent that the only hypnotic medication that has been consistently effective for this patient has been temazepam, and there is no evidence that he has been misusing this medication in the community prior to admission. -The material risks of temazepam, including but not limited to, risk of a physical habituation, risk of complicated and possibly fatal withdrawal symptoms, risk of accidents, falls and other injuries, as well as risk of w orsening depression and clouded consciousness/cognitive impairment were reviewed with the patient, and he responded by saying, "I know. But it is the only thing that works. I really need to sleep, and without it the voices keep me awake all night." 10/22 -The patient's history of benzodiazepine continues to be noted. However, the patient's current condition, we continue to feel that the use of temazepam for sleep is medically necessary and appropriate. 10/25--d/c temazepam as seems to be contributing to AMS? (5) Auditory hallucinations: 10/16 -Patient's chief complaint has to do with persistent persecutory auditory hallucinations. He describes the voices as being "electronically generated," and although he tells us that he does not know the source of the electronically generated voices, he says that he has no doubt that they are real and are coming from some entity that is trying to torture and/or kill him. His explanation for the suicide attempt was not that he has been depressed, but, instead, because he feels tortured by the voices and finds that he can no longer tolerate hearing them and no longer tolerate feeling terrorized by them. Patient also explains that he would rather at his own hand than risk being murdered by unknown forces and unknown means. -The patient's condition has been largely treatment resistant to psychiatric medications. With each antipsychotic medication mentioned, the patient's response has been to assert that the specific medicine mentioned has been tried and was not effective, or has been tried and caused worsening symptoms. Today, he asserts that he has taken clozapine in the past, but that it was not effective. He has unable to identify the dose, and does not recall when or where it was prescribed, but says that he believes that he took it for "a month or 2" before it was discontinued as ineffective. Other options for the patient might be a trial of perphenazine or loxapine. For now, the patient has indicated that he would prefer to remain on Geodon 80 mg twice a day. 3/4 - Auditory hallucinations are ongoing. Pt does report that the voices are quieter, but when asked for how long he states "just now, since you asked" - Unclear how reliable patient's reports are on this topic, though it is anticipated ongoing titration of clozapine may be helpful for this 3/5 - Pt more focused on "head buzzing" today, does not mention auditory hallucinations today though this does not mean he is not experiencing them 3/6 -Today, the patient reports that he is troubled both by "a buzzing sound" in both ears, as well as by voices". He tells us that he believes that the voices are being generated by a computer and that the threats that are made through the's "voices" are genuine and represent a mortal danger. He insists that he is being told that he is going to be murdered. -I tried to talk to the patient about the fact that his records, going back many years, speak to the presence of similar perceptual disturbances and similar believes. The patient responds by saying, "they have come close to killing me a number of times. 1 of these days they are going to do it!" -We are discontinuing Geodon today and will be increasing his dose of clozapine, beginning tonight. The new dose of clozapine will be 150 mg at bedtime and 25 mg in the morning. We expect that we will need to continue to titrate. We will also reintroduce clozapine, albeit at a lower dose, should his psychiatric condition worsen. Our concern at this point is excess sedation associated with our current cross titration of Geodon and clozapine. 10/23 - Pt denies significant change from above at this time 10/24 - Ongoing, unchanged with current dose of clozapine - pt would likely require further titration of clozapine to therapeutic range; however, this titration must be balanced with concerns the medication may be causing EPS and parkinsonism - Will reduce dose of clozapine to 150mg qHS and suggest reduced pace of titration 10/28 --no change on current dose of Clozaril, will ask Dr. Dorsey to provide second opinion re: use and dose of Clozaril given course in past week. 10/29 - No change in AH at this time Risk Factors Assessment Male: Yes : Yes Do You Have Access To A Gun?: No Health Problems: No Mental Health Diagnoses: Yes Substance Use Disorders: Yes Previous Attempt: Yes Family History of Suicide: Yes (cousin) Previous Psychiatric Hospitalization: Yes Hopelessness: Yes Protective Factors Assessment Faith Beliefs: No : No Responsible for Young Children: No Employed: No Stable Relationships: No Supportive Family: No Good Rapport with Provider: No Interval History Identifying Information SCOTT ROBERTO is a 74-year-old M who currently lives in [place] at the [facility]. Pt has a history of schizophrenia and this is his fourth psychiatric admission to our unit in roughly the last 7 months, with one admission to [facility] in that time as well. Pt was admitted on 10/14/19 12:33 on a 201 voluntary commitment after being treated on the medical floor since 10/09/2019 after an intentional Tylenol overdose. 306 conversion hearing was held on 10/16/2019 and his 305 IOC was converted to an inpatient commitment. Chief Complaint "hearing buzzing sound". Review of Systems Sleep Information Total Hours of Sleep: 8.25 Sleep Comments: pt on q-15 minute checks Meal Information Percent Meal Consumed - Breakfast: 100 Percent Meal Consumed - Lunch: 100 Percent Meal Consumed - Dinner: 100 Subjective Subjective Patient was seen & assessed and interval progress reviewed with nursing and social work. Pt complains of hearing a buzzing sound in his head and also subsequently endorses hearing AH telling him to kill himself. He indicated that cyanide poisoning would be the method he would use should he do it. He is unable to contract for safety outside of the Hospital and indicate no aim or thoughts of acting on suicidal processes while in the hospital. He finds that any prior antipsychotic med trials have been unhelpful. He endorsed feeling confused and struggles to feel express his thoughts. He indicated that it was Saturday instead of SaturdayOctober 30. He is reported to be notably more oriented by staff today then yesterday and not as disorganized. He continues to report his sleep as poor and limited, staff reports 8.25 hours of sleep per night checks though. Pt taking temazepam 7.5mg Hs. He is anxious in his mood and feels that Vistaril is not helpful. He continues to view Valium and cannabis as agents that receive him of his distress Physical Exam Psychiatric Orientation: alert, oriented to person and oriented to place partially oriented to time as above Apperance: appropriately dressed Eye Contact: + fair eye contact Motor Behavior: steady gait and station and no abnormal motor movements speech anxious in tone Affect: + anxious affect and + constricted affect Mood: + anxious mood Thought Content: + paranoid and + hopelessness reports AH telling him to kill himself and his plan would be cyanide Homicidal Thoughts: denies homicidal thoughts Hallucinations: + auditory hallucinations; no visual hallucinations Cognition: recent memory grossly intact and remote memory grossly intact; + attention not intact Estimated Intelligence: average estimated intelligence Insight: + fair insight Judgement: + impaired judgement Vital Signs (Past 24 Hours) Last Vital Signs Temp 36.7 C 10/31/19 06:33 Pulse 92 H 10/31/19 06:34 Resp 18 10/31/19 06:33 BP 124/82 10/31/19 06:34 Pulse Ox 96 10/22/19 23:30 Results & Data ([facility]) Current Inpatient Medications Current Inpatient Medications: Current Inpatient Medications Al Hydrox/Mg Hydrox/Simethicone (Maalox) 30 ml PO Q4H PRN PRN Reason: GI Upset Stop: 11/13/19 13:39 Benztropine Mesylate (Cogentin) 0.5 mg PO BID PRN PRN Reason: EPS/restlessness Stop: 11/28/19 20:59 Bismuth Subsalicylate (Kaopectate) 15 ml PO PRN PRN PRN Reason: Loose Stool Stop: 11/13/19 13:39 Docusate Sodium (Colace) 100 mg PO BID MAG Stop: 11/13/19 20:59 Last Admin: 10/31/19 08:47 Dose: 100 mg Documented by: Hydroxyzine HCl (Vistaril) 50 mg PO HSZ PRN PRN Reason: Insomnia Stop: 11/13/19 13:39 Hydroxyzine HCl (Vistaril) 25 mg PO Q4H PRN PRN Reason: Anxiety Stop: 11/13/19 13:39 Magnesium Hydroxide (Milk Of Magnesia) 30 ml PO DAILY PRN PRN Reason: Constipation Stop: 11/13/19 13:39 Magnesium Oxide (Mag-Ox) 400 mg PO DAILY MAG Stop: 11/14/19 08:59 Last Admin: 10/31/19 08:47 Dose: 400 mg Documented by: Polyethylene Glycol (Miralax Powder Packet) 17 gm PO DAILY MAG Stop: 11/14/19 08:59 Last Admin: 10/31/19 08:47 Dose: 17 gm Documented by: Potassium Chloride (Klor-Con M20) 20 meq PO DAILY MAG Stop: 11/14/19 08:59 Last Admin: 10/31/19 08:47 Dose: 20 meq Documented by: Senna/Docusate Sodium (Senokot S) 1 tab PO QAM MAG Stop: 11/14/19 08:59 Last Admin: 10/31/19 08:47 Dose: 1 tab Documented by: Sodium Chloride ([place] Nasal) 1 - 2 sprays NA PRN PRN PRN Reason: Nasal Dryness/Congestion Stop: 11/13/19 13:39 Temazepam (Restoril) 7.5 mg PO HSZ MAG Stop: 11/27/19 21:59 Last Admin: 10/30/19 20:44 Dose: 7.5 mg Documented by: Mental Health & Subst Abuse Tx Psychiatrist Name of Psychiatrist: [facility] - Dr. Alves Psychiatrist's Psychiatric Appointment Comment: [address], [address], [place] [address] Therapist Name of Therapist: none Contracting Executive Name of Contracting Executive: Shruti Mcbride Phone Number for Contracting Executive: [phone] Case Management Appointment Comment: Comes to see you at the [facility] Post Discharge Appointments Primary Care Physician Name Of Family Doctor: [facility] - Dr. Jeff Lopez Primary Care Provider Appointment Comment: [address], [address], [place] [address] Neurologist [place] [facility] [place]al Neurologist's Date of Appointment with Neurologist: 11/17/19 Neurology Appointment Comment: [address], [place] [address] Contact Information Discharge Contact Information Comment: JERRELL CRTwila (1) Schizophrenia Schizophrenia type: paranoid schizophrenia Qualified Code(s): F20.0 - Paranoid schizophrenia (2) Hypertension Hypertension type: essential hypertension Qualified Code(s): I10 - Essential (primary) hypertension
[2019-10-31] MEDS: TEMAZEPAM 7.5 MG CAPSULE PO SCH (20:30)
[2019-11-01] MEDS: DOCUSATE SODIUM/SENNA 50/8.6MG TAB PO SCH (08:55)
[2019-11-01] MEDS: POLYETHYLENE (MIRALAX) 17 GM PACK PO SCH (08:56)
[2019-11-01] MEDS: POTASSIUM CHLORIDE 20 MEQ TABCR PO SCH (08:56)
[2019-11-01] MEDS: DOCUSATE SODIUM 100 MG CAP PO SCH ×2 (08:56→20:35)
[2019-11-01] MEDS: MAGNESIUM OXIDE 400 MG TAB PO SCH (08:56)
[2019-11-01] MEDS: BENZTROPINE MESYLATE 0.5 MG TAB PO PRN (12:40)
--- NOTE | 2019-11-01 14:16 | Psychiatric Progress Note ---
Date of Service November 01, 2019 Impression / Recommendations Impression 74-year-old male with chronic schizophrenia who presented 10/08/2019 after he was found unresponsive at the [facility] and admitted to taking a Tylenol overdose in an attempt to end his life. Admitted to the hospitalist service for 6 days, and transferred voluntarily to our unit on 10/14/19. He was on an involuntary 305 outpatient commitment converted to inpatient on 10/16/19. Mirtazapine and Xanax were discontinued as he reported they were ineffective. He was started on temazepam while on the hospitalist service for reports of poor sleep, and this medication has appeared to be effective - will need to determine discharge plans given history of benzodiazepine abuse; however, patient is likely to be discharged back to his [facility] where medication can be monitored. Pt did consent to retrial of Clozaril starting 10/17, with titration as tolerated. (italics reviewed, group summary) Pt continues to report AH and suicidal ideation, inpatient hospitalization remains the least restrictive setting for him at this time. Clozaril ceased 10/29 given worsening disorganization and disorientation while on it that apepars to be lessening today with ongoing psychotic presentation and command AH to kill self and related SI. disorganziation ongoing but seeming less severe then on days still on clozaril (1) Schizophrenia: Italics=group stay summary, reviewed 10/14 - Continue ziprasidone as initiated on the medical floor - resume 80mg BID dosing with meals - Continue benztropine 0.5mg as needed for reports of stiffness, though it remains unclear if this is truly related to his antipsychotic medication - Mirtazapine was discontinued on the medical floor as patient feels it had been ineffective - Continue temazepam 15mg qHS for sleep - at least while hospitalized in a supervised setting, as patient has a history of benzodiazepine abuse - Will coordinate treatment with patient's outpatient psychiatric supports - Encourage participation in group and recreational programming 10/15 -Continue ziprasidone; reviewed fasting lipid profile and fasting glucose from 02/2019, all values were within normal limits. -Discussed trial of clozapine; patient states that he believes he was on this medication in the past and that it was ineffective. Continue to provide education and encourage retrial, as he has had limited response to multiple other antipsychotics, and it would also help address suicidal thoughts in addition to psychosis. -Involve outpatient returned case inspector and coordinate with psychiatrist, Dr. Alves. 10/16 -The plan is to continue ziprasidone 80 mg twice a day. We discussed other treatment options with the patient, and he says that he is not interested in trying the various options suggested. He tends to respond in the affirmative every time he is asked whether he has ever taken a number of specific medications, and replies in each instance "it did not help." He does say, somewhat convincingly, that he took clozapine (dose unspecified and unknown by the patient) a number of years ago for "a month or 2," and that it did not help. Re-challenging the patient with clozapine may be helpful, but at present the patient indicates that he will refuse to take it. -The patient hesitates when asked about loxapine and perphenazine, but then says that he has taken both. Loxapine is not on the hospital formulary. Today, the patient says that he is not interested in trying either of these medications "again." -Today, the patient tells us that he "really does not" want to go to the [facility] ("[place] although he had previously said that he might be interested in doing that. He adds that he does feel safer in a hospital, but feels that he would like to work towards being able to be discharged back to the community at this point. 10/17 --reconsented for retrial of Clozaril following review of CBC and EKG, patient aware to monitor constipation and sialorrhea and notify staff. will dose at hs and titrate by 25 mg nightly, repeat CBC in 1 week. 10/18--titrate Clozaril to 50 mg po qhs, Dr. Campos notified to consider EKG for repeat QTC on med combo as dose is increased, EPS apparently predates start of Clozaril and is not new, he is agreeable to add 0.5 mg Cogentin standing order as trial basis. 10/19 - Continue clozapine titration (now ordered for automatic titration of 25mg each evening), pt to receive 75mg tonight - Pt reports his condition remains unchanged at this time, but is aware that clozapine will need to be titrated to an effective dose range - At this time, patient maintains his desire would be for eventual discharge back to the R - no longer requesting [place] referral - He remains suicidal and continues to report head buzzing and auditory hallucinations that are overwhelming to him 10/20 - Continue clozapine titration - pt to receive 100mg tonight - Will reduce ziprasidone to 60mg BID given continued titration of clozapine and reported ineffectiveness of the medication - will order an EKG for tomorrow morning, given cross-titration putting patient at increased risk of QTc prolongation. - Ongoing discussions regarding discharge planning - Pt continues to verbalize SI and feels he cannot contract for safety outside of the hospital setting 10/21 - Clozapine to be titrated to 125mg this evening; will continue ziprasidone 60mg BID for now though can consider ongoing taper - EKG ordered this morning, and reviewed QTc 445 - Reports ongoing SI - stating he is "pretty d*mn close" to wanting to - Discharge planning meeting scheduled for tomorrow 10/22 -Discharge remaining has been postponed. -Ziprasidone was held this morning, and the patient's cognition seems to have cleared. He is fully oriented and has not shown evidence of confusion. The patient, himself, notes that his thinking does seem to be more clear than it had been. -We will further titrate clozapine 250 mg at bedtime and 25 mg in the morning. -Because of persistent disturbing auditory hallucinations that the patient reports prevent him from easily inducing and maintaining sleep we will increase his dose of temazepam from 15 mg at bedtime for sleep to a dose of 22.5 mg at bedtime as needed sleep. -Although the patient's cognition seems to have improved, staff recall that during at least 1 previous admission the patient had similar mental status alterations and a urinary tract infection was found to been contributory. For that reason, we have ordered a urinalysis. -The patient has been demonstrating a shuffling gait, and on testing today a substantial degree of cogwheel rigidity was noted. The patient also reports a feeling "jumpy" and "restless." He had been receiving benztropine 0.5 mg twice a day, and while this may have been helpful, it seems not to have been fully effective. We will try trihexyphenidyl 2 mg stat and then 2 mg twice a day, and titrate further as indicated. 10/23 - Titrate clozapine to 25mg qAM and 200mg qHS - continue to hold ziprasidone at this time - Pt continues to reports stiffness and difficulty with ambulation, given that we are continuing to titrate clozapine we will order an additional prn dose of trihexyphenidyl 2mg with consideration to schedule the dose if necessary - UA results reviewed - no indication for current UTI - Will need to continue to discuss appropriate discharge timeline - patient remains suicidal 10/24 - Given concern for confusion, EPS and parkinsonism, morning dose of clozapine was held - Will reduce patient's dose to 150mg qHS and plan for a slower titration. This dosage continues to be subtherapeutic, and patient will require advancement of dose as tolerated - Will discontinue trihexyphenidyl due to concern for urinary retention - will resume benztropine 1mg BID for ongoing stiffness and EPS - Will plan to reduce dose of temazepam to 7.5mg with a one-time repeat if necessary - Pt placed on MNPR due to ambulatory concerns, somewhat disruptive behavior related to his physical complaints, and need for close observation at this time 10/27 --resume low dose Restoril as seems more disorganized with poorer quality sleep, reviewed can impact risk of falls, ?anticholinergic side effects 10/28 --will decrease Cogentin given potential that anticholinergic side effects are worsening his cognition. 10/29 - Will discontinue clozapine at this time - allow patient to clear for a period of time and then consider resuming an antipsychotic medication as he continues to experience auditory hallucinations - Will continue Cogentin, but switch to prn - unlikely to require regularly until/unless an antipsychotic medication is resumed. Agree with concern the medication may increase risk of confusion/falls - Resumed MNPR due to behaviors associated with confusion that are not compatible with and would be disruptive to a roommate at this time 10/30 - holding off starting a different antipsychotic at this time to give time to clear from potential worsening of presentation from clozapine trial, maintained MNPR for now 10/31 plan unchanged for now, consider options to treat psychotic processes that appear ongoing so far while holding for now as potential that medication reaction adding to presentation (2) Tylenol overdose: 10/14 - Continue management per medical team - Recheck LFTs tomorrow morning. Today, AST 70, ALT 631. 10/15 -Continue to trend down. AST 54, ALT 538. We will reorder LFTs for Saturday. Avoid hepatotoxic agents. 10/16 -Patient reports that he remains suicidal and confirms that his overdose of Tylenol was taken with the intent of causing his own . (3) Hypertension: 10/14 - Home medication includes clonidine 0.1mg qHS - Will continue to monitor blood pressure with daily vitals, consider resuming 10/20 - We have continued daily blood pressures, some of which have been mildly elevated but not consistently - Given increased fatigue and concern for falls related to intermittent unsteadiness with ambulation, will continue to hold clonidine at this time 10/22 -Today, the patient's blood pressure is within normal limits. (4) Benzodiazepine abuse: 10/14 - Historical diagnosis of benzodiazepine abuse - Will not continue home dose of alprazolam - but will offer temazepam 15mg qHS for sleep as it has been effective - Will need to consider the safety of this medication regimen, and may suggest discontinuation of benzodiazepines at discharge given his history - Benzodiazepines are not recommended for the patient if he would be discharged to an unsupervised setting or expected to manage his own medication administration 10/16 -The patient is history of benzodiazepine abuse is noted. That history not withstanding, at seems apparent that the only hypnotic medication that has been consistently effective for this patient has been temazepam, and there is no evidence that he has been misusing this medication in the community prior to admission. -The material risks of temazepam, including but not limited to, risk of a physical habituation, risk of complicated and possibly fatal withdrawal symptom s, risk of accidents, falls and other injuries, as well as risk of worsening depression and clouded consciousness/cognitive impairment were reviewed with the patient, and he responded by saying, "I know. But it is the only thing that works. I really need to sleep, and without it the voices keep me awake all night." 10/22 -The patient's history of benzodiazepine continues to be noted. However, the patient's current condition, we continue to feel that the use of temazepam for sleep is medically necessary and appropriate. 10/25--d/c temazepam as seems to be contributing to AMS? (5) Auditory hallucinations: 10/16 -Patient's chief complaint has to do with persistent persecutory auditory hallucinations. He describes the voices as being "electronically generated," and although he tells us that he does not know the source of the electronically generated voices, he says that he has no doubt that they are real and are coming from some entity that is trying to torture and/or kill him. His explanation for the suicide attempt was not that he has been depressed, but, instead, because he feels tortured by the voices and finds that he can no longer tolerate hearing them and no longer tolerate feeling terrorized by them. Patient also explains that he would rather at his own hand than risk being murdered by unknown forces and unknown means. -The patient's condition has been largely treatment resistant to psychiatric medications. With each antipsychotic medication mentioned, the patient's response has been to assert that the specific medicine mentioned has been tried and was not effective, or has been tried and caused worsening symptoms. Today, he asserts that he has taken clozapine in the past, but that it was not effective. He has unable to identify the dose, and does not recall when or where it was prescribed, but says that he believes that he took it for "a month or 2" before it was discontinued as ineffective. Other options for the patient might be a trial of perphenazine or loxapine. For now, the patient has indicated that he would prefer to remain on Geodon 80 mg twice a day. 3/4 - Auditory hallucinations are ongoing. Pt does report that the voices are quieter, but when asked for how long he states "just now, since you asked" - Unclear how reliable patient's reports are on this topic, though it is anticipated ongoing titration of clozapine may be helpful for this 3/5 - Pt more focused on "head buzzing" today, does not mention auditory hallucinations today though this does not mean he is not experiencing them 3/6 -Today, the patient reports that he is troubled both by "a buzzing sound" in both ears, as well as by voices". He tells us that he believes that the voices are being generated by a computer and that the threats that are made through the's "voices" are genuine and represent a mortal danger. He insists that he is being told that he is going to be murdered. -I tried to talk to the patient about the fact that his records, going back many years, speak to the presence of similar perceptual disturbances and similar believes. The patient responds by saying, "they have come close to killing me a number of times. 1 of these days they are going to do it!" -We are discontinuing Geodon today and will be increasing his dose of clozapine, beginning tonight. The new dose of clozapine will be 150 mg at bedtime and 25 mg in the morning. We expect that we will need to continue to titrate. We will also reintroduce clozapine, albeit at a lower dose, should his psychiatric condition worsen. Our concern at this point is excess sedation associated with our current cross titration of Geodon and clozapine. 10/23 - Pt denies significant change from above at this time 10/24 - Ongoing, unchanged with current dose of clozapine - pt would likely require further titration of clozapine to therapeutic range; however, this titration must be balanced with concerns the medication may be causing EPS and parkinsonism - Will reduce dose of clozapine to 150mg qHS and suggest reduced pace of titration 10/28 --no change on current dose of Clozaril, will ask Dr. Dorsey to provide second opinion re: use and dose of Clozaril given course in past week. 10/29 - No change in AH at this time Risk Factors Assessment Male: Yes : Yes Do You Have Access To A Gun?: No Health Problems: No Mental Health Diagnoses: Yes Substance Use Disorders: Yes Previous Attempt: Yes Family History of Suicide: Yes (cousin) Previous Psychiatric Hospitalization: Yes Hopelessness: Yes Protective Factors Assessment Pent[employer]al Beliefs: No : No Responsible for Young Children: No Employed: No Stable Relationships: No Supportive Family: No Good Rapport with Provider: No Interval History Identifying Information SCOTT ROBERTO is a 74-year-old M who currently lives in [place] at the [facility]. Pt has a history of schizophrenia and this is his fourth psychiatric admission to our unit in roughly the last 7 months, with one admission to [place] in that time as well. Pt was admitted on 10/14/19 12:33 on a 201 voluntary commitment after being treated on the medical floor since 10/09/2019 after an intentional Tylenol overdose. 306 conversion hearing was held on 10/16/2019 and his 305 IOC was converted to an inpatient commitment. Chief Complaint "buzzing in my head ". Review of Systems Sleep Information Total Hours of Sleep: 11 Sleep Comments: sleep total hours between 10/27 and 06/25 shifts Meal Information Percent Meal Consumed - Breakfast: 100 Percent Meal Consumed - Lunch: 100 Percent Meal Consumed - Dinner: 50 Subjective Subjective Patient was seen & assessed and interval progress reviewed with nursing and social work. ongoing AH and buzzing in his head, AH still telling him to kill himself, pt continues to exhibit disorganization in his thinking. pt not sure how he slept last night, staff reproted 11 hour total over 2 shifts. Pt not seeming agitated or irritable on the unit. Physical Exam Psychiatric Orientation: alert, oriented x 3 and cooperative Eye Contact: + fair eye contact Motor Behavior: no abnormal motor movements Speech: normal rate/rhythm/volume of speech Affect: + anxious affect Mood: + anxious mood Thought Process: + looseness of associations and + concrete thought process Thought Content: + paranoid and + delusions Suicidal Thoughts: + reports suicidal thoughts and + reports suicidal plan Homicidal Thoughts: denies homicidal thoughts Hallucinations: + auditory hallucinations command to kill himself Estimated Intelligence: average estimated intelligence (but seeming confused ) Insight: + severely impaired insight Judgement: + severely impaired judgement; + not good judgement Vital Signs (Past 24 Hours) Last Vital Signs Temp 36.9 C 11/01/19 06:31 Pulse 93 H 11/01/19 06:32 Resp 18 11/01/19 06:31 BP 135/85 11/01/19 06:32 Pulse Ox 96 10/22/19 23:30 Results & Data ([facility]) Current Inpatient Medications Current Inpatient Medications: Current Inpatient Medications Al Hydrox/Mg Hydrox/Simethicone (Maalox) 30 ml PO Q4H PRN PRN Reason: GI Upset Stop: 11/13/19 13:39 Benztropine Mesylate (Cogentin) 0.5 mg PO BID PRN PRN Reason: EPS/restlessness Stop: 11/28/19 20:59 Last Admin: 11/01/19 12:40 Dose: 0.5 mg Documented by: Bismuth Subsalicylate (Kaopectate) 15 ml PO PRN PRN PRN Reason: Loose Stool Stop: 11/13/19 13:39 Docusate Sodium (Colace) 100 mg PO BID MAG Stop: 11/13/19 20:59 Last Admin: 11/01/19 08:56 Dose: 100 mg Documented by: Hydroxyzine HCl (Vistaril) 50 mg PO HSZ PRN PRN Reason: Insomnia Stop: 11/13/19 13:39 Hydroxyzine HCl (Vistaril) 25 mg PO Q4H PRN PRN Reason: Anxiety Stop: 11/13/19 13:39 Magnesium Hydroxide (Milk Of Magnesia) 30 ml PO DAILY PRN PRN Reason: Constipation Stop: 11/13/19 13:39 Magnesium Oxide (Mag-Ox) 400 mg PO DAILY MAG Stop: 11/14/19 08:59 Last Admin: 11/01/19 08:56 Dose: 400 mg Documented by: Polyethylene Glycol (Miralax Powder Packet) 17 gm PO DAILY MAG Stop: 11/14/19 08:59 Last Admin: 11/01/19 08:56 Dose: 17 gm Documented by: Potassium Chloride (Klor-Con M20) 20 meq PO DAILY MAG Stop: 11/14/19 08:59 Last Admin: 11/01/19 08:56 Dose: 20 meq Documented by: Senna/Docusate Sodium (Senokot S) 1 tab PO QAM MAG Stop: 11/14/19 08:59 Last Admin: 11/01/19 08:55 Dose: 1 tab Documented by: Sodium Chloride ([place] Nasal) 1 - 2 sprays NA PRN PRN PRN Reason: Nasal Dryness/Congestion Stop: 11/13/19 13:39 Temazepam (Restoril) 7.5 mg PO HSZ MAG Stop: 11/27/19 21:59 Last Admin: 10/31/19 20:30 Dose: 7.5 mg Documented by: Mental Health & Subst Abuse Tx Psychiatrist Name of Psychiatrist: [facility] - Dr. Alves Psychiatrist's Psychiatric Appointment Comment: [address], [address], [place] [address] Therapist Name of Therapist: none [place] Name of [place]: Shruti Mcbride Phone Number for [facility]: [phone] Case Management Appointment Comment: Comes to see you at the [facility] Post Discharge Appointments Primary Care Physician Name Of Family Doctor: [facility] - Dr. Jeff Lopez Primary Care Provider Appointment Comment: [address], [address], [place] [address] Neurologist Name of Neurologist: [facility] - Dr. Caal Neurologist's Date of Appointment with Neurologist: 11/17/19 Neurology Appointment Comment: [address], [place] [address] Contact Information Discharge Contact Information Comment: JERRELL BRYAN (1) Schizophrenia Schizophrenia type: paranoid schizophrenia Qualified Code(s): F20.0 - Paranoid schizophrenia (2) Hypertension Hypertension type: essential hypertension Qualified Code(s): I10 - Essential (primary) hypertension
[2019-11-01] MEDS: TEMAZEPAM 7.5 MG CAPSULE PO SCH (20:36)
[2019-11-02] MEDS: DOCUSATE SODIUM 100 MG CAP PO SCH ×2 (08:20→21:12)
[2019-11-02] MEDS: POLYETHYLENE (MIRALAX) 17 GM PACK PO SCH (08:20)
[2019-11-02] MEDS: MAGNESIUM OXIDE 400 MG TAB PO SCH (08:20)
[2019-11-02] MEDS: POTASSIUM CHLORIDE 20 MEQ TABCR PO SCH (08:20)
[2019-11-02] MEDS: DOCUSATE SODIUM/SENNA 50/8.6MG TAB PO SCH (08:21)
--- NOTE | 2019-11-02 10:36 | Psychiatric Progress Note ---
Date of Service November 02, 2019 Impression / Recommendations Impression 74-year-old male with chronic schizophrenia who presented 10/08/2019 after he was found unresponsive at the [facility] and admitted to taking a Tylenol overdose in an attempt to end his life. Admitted to the hospitalist service for 6 days, and transferred voluntarily to our unit on 10/14/19. He was on an involuntary 305 outpatient commitment converted to inpatient on 10/16/19. Mirtazapine and Xanax were discontinued as he reported they were ineffective. He was started on temazepam while on the hospitalist service for reports of poor sleep, and this medication has appeared to be effective - will need to determine discharge plans given history of benzodiazepine abuse; however, patient is likely to be discharged back to his [facility] where medication can be monitored. Pt did consent to retrial of Clozaril starting 10/17, however, trial was halted on 10/29 when patient demonstrated increased confusion and EPS. Clozapine was discontinued after we were unable to titrate to effective dosing due to side effects. Pt continues to report AH and suicidal ideation, inpatient hospitalization remains the least restrictive setting for him at this time. He continues to seem somewhat disorganized; however, is beginning to participate appropriate in group programming again. (1) Schizophrenia: 10/14 - Continue ziprasidone as initiated on the medical floor - resume 80mg BID dosing with meals - Continue benztropine 0.5mg as needed for reports of stiffness, though it remains unclear if this is truly related to his antipsychotic medication - Mirtazapine was discontinued on the medical floor as patient feels it had been ineffective - Continue temazepam 15mg qHS for sleep - at least while hospitalized in a supervised setting, as patient has a history of benzodiazepine abuse - Will coordinate treatment with patient's outpatient psychiatric supports - Encourage participation in group and recreational programming 10/15 -Continue ziprasidone; reviewed fasting lipid profile and fasting glucose from 02/2019, all values were within normal limits. -Discussed trial of clozapine; patient states that he believes he was on this medication in the past and that it was ineffective. Continue to provide education and encourage retrial, as he has had limited response to multiple other antipsychotics, and it would also help address suicidal thoughts in ad dition to psychosis. -Involve outpatient case operator and coordinate with psychiatrist, Dr. Alves. 10/16 -The plan is to continue ziprasidone 80 mg twice a day. We discussed other treatment options with the patient, and he says that he is not interested in trying the various options suggested. He tends to respond in the affirmative every time he is asked whether he has ever taken a number of specific medications, and replies in each instance "it did not help." He does say, somewhat convincingly, that he took clozapine (dose unspecified and unknown by the patient) a number of years ago for "a month or 2," and that it did not help. Re-challenging the patient with clozapine may be helpful, but at present the patient indicates that he will refuse to take it. -The patient hesitates when asked about loxapine and perphenazine, but then says that he has taken both. Loxapine is not on the hospital formulary. Today, the patient says that he is not interested in trying either of these medications "again." -Today, the patient tells us that he "really does not" want to go to the [facility] although he had previously said that he might be interested in doing that. He adds that he does feel safer in a hospital, but feels that he would like to work towards being able to be discharged back to the community at this point. 3 --reconsented for retrial of Clozaril following review of CBC and EKG, patient aware to monitor constipation and sialorrhea and notify staff. will dose at hs and titrate by 25 mg nightly, repeat CBC in 1 week. 10/18--titrate Clozaril to 50 mg po qhs, Dr. Campos notified to consider EKG for repeat QTC on med combo as dose is increased, EPS apparently predates start of Clozaril and is not new, he is agreeable to add 0.5 mg Cogentin standing order as trial basis. 10/19 - Continue clozapine titration (now ordered for automatic titration of 25mg each evening), pt to receive 75mg tonight - Pt reports his condition remains unchanged at this time, but is aware that clozapine will need to be titrated to an effective dose range - At this time, patient maintains his desire would be for eventual discharge back to the [facility] - no longer requesting [facility] referral - He remains suicidal and continues to report head buzzing and auditory hallucinations that are overwhelming to him 10/20 - Continue clozapine titration - pt to receive 100mg tonight - Will reduce ziprasidone to 60mg BID given continued titration of clozapine and reported ineffectiveness of the medication - will order an EKG for tomorrow morning, given cross-titration putting patient at increased risk of QTc prolongation. - Ongoing discussions regarding discharge planning - Pt continues to verbalize SI and feels he cannot contract for safety outside of the hospital setting 10/21 - Clozapine to be titrated to 125mg this evening; will continue ziprasidone 60mg BID for now though can consider ongoing taper - EKG ordered this morning, and reviewed QTc 445 - Reports ongoing SI - stating he is "pretty d*mn close" to wanting to - Discharge planning meeting scheduled for tomorrow 10/22 -Discharge remaining has been postponed. -Ziprasidone was held this morning, and the patient's cognition seems to have cleared. He is fully oriented and has not shown evidence of confusion. The patient, himself, notes that his thinking does seem to be more clear than it had been. -We will further titrate clozapine 250 mg at bedtime and 25 mg in the morning. -Because of persistent disturbing auditory hallucinations that the patient reports prevent him from easily inducing and maintaining sleep we will increase his dose of temazepam from 15 mg at bedtime for sleep to a dose of 22.5 mg at bedtime as needed sleep. -Although the patient's cognition seems to have improved, staff recall that during at least 1 previous admission the patient had similar mental status alterations and a urinary tract infection was found to been contributory. For that reason, we have ordered a urinalysis. -The patient has been demonstrating a shuffling gait, and on testing today a substantial degree of cogwheel rigidity was noted. The patient also reports a feeling "jumpy" and "restless." He had been receiving benztropine 0.5 mg twice a day, and while this may have been helpful, it seems not to have been fully effective. We will try trihexyphenidyl 2 mg stat and then 2 mg twice a day, and titrate further as indicated. 10/23 - Titrate clozapine to 25mg qAM and 200mg qHS - continue to hold ziprasidone at this time - Pt continues to reports stiffness and difficulty with ambulation, given that we are continuing to titrate clozapine we will order an additional prn dose of trihexyphenidyl 2mg with consideration to schedule the dose if necessary - UA results reviewed - no indication for current UTI - Will need to continue to discuss appropriate discharge timeline - patient remains suicidal 10/24 - Given concern for confusion, EPS and parkinsonism, morning dose of clozapine was held - Will reduce patient's dose to 150mg qHS and plan for a slower titration. This dosage continues to be subtherapeutic, and patient will require advancement of dose as tolerated - Will discontinue trihexyphenidyl due to concern for urinary retention - will resume benztropine 1mg BID for ongoing stiffness and EPS - Will plan to reduce dose of temazepam to 7.5mg with a one-time repeat if necessary - Pt placed on MNPR due to ambulatory concerns, somewhat disruptive behavior related to his physical complaints, and need for close observation at this time 10/27 --resume low dose Restoril as seems more disorganized with poorer quality sleep, reviewed can impact risk of falls, ?anticholinergic side effects 10/28 --will decrease Cogentin given potential that anticholinergic side effects are worsening his cognition. 10/29 - Will discontinue clozapine at this time - allow patient to clear for a period of time and then consider resuming an antipsychotic medication as he continues to experience auditory hallucinations - Will continue Cogentin, but switch to prn - unlikely to require regularly until/unless an antipsychotic medication is resumed. Agree with concern the med ication may increase risk of confusion/falls - Resumed MNPR due to behaviors associated with confusion that are not compatible with and would be disruptive to a roommate at this time 10/30 - holding off starting a different antipsychotic at this time to give time to clear from potential worsening of presentation from clozapine trial, maintained MNPR for now 10/31 plan unchanged for now, consider options to treat psychotic processes that appear ongoing so far while holding for now as potential that medication reaction adding to presentation 11/01 - Continue to hold clozapine - consider alternative antipsychotic agents to target auditory hallucinations which are ongoing - Will allow for a 7.5mg repeat dose of temazepam, as patient continues to report poor sleep. While temazepam may contribute to confusion, poor quality of sleep may be contributing as well. Pt should not receive an additional dose if he is appearing confused or if gait is unstable. - Pt continues to report suicide "it's still an option" if AH continue - he is admitted presently to feeling as though he would seek help before acting on these thoughts - Will need to scheduled discharge planning meeting with the [facility] once patient is appropriate to participate (2) Tylenol overdose: 10/14 - Continue management per medical team - Recheck LFTs tomorrow morning. Today, AST 70, ALT 631. 10/15 -Continue to trend down. AST 54, ALT 538. We will reorder LFTs for Saturday. Avoid hepatotoxic agents. 10/16 -Patient reports that he remains suicidal and confirms that his overdose of Tylenol was taken with the intent of causing his own . (3) Hypertension: 10/14 - Home medication includes clonidine 0.1mg qHS - Will continue to monitor blood pressure with daily vitals, consider resuming 10/20 - We have continued daily blood pressures, some of which have been mildly elevated but not consistently - Given increased fatigue and concern for falls related to intermittent unsteadiness with ambulation, will continue to hold clonidine at this time 10/22 -Today, the patient's blood pressure is within normal limits. (4) Benzodiazepine abuse: 10/14 - Historical diagnosis of benzodiazepine abuse - Will not continue home dose of alprazolam - but will offer temazepam 15mg qHS for sleep as it has been effective - Will need to consider the safety of this medication regimen, and may suggest discontinuation of benzodiazepines at discharge given his history - Benzodiazepines are not recommended for the patient if he would be discharged to an unsupervised setting or expected to manage his own medication administration 10/16 -The patient is history of benzodiazepine abuse is noted. That history not withstanding, at seems apparent that the only hypnotic medication that has been consistently effective for this patient has been temazepam, and there is no evidence that he has been misusing this medication in the community prior to admission. -The material risks of temazepam, including but not limited to, risk of a physical habituation, risk of complicated and possibly fatal withdrawal symptoms, risk of accidents, falls and other injuries, as well as risk of worsening depression and clouded consciousness/cognitive impairment were reviewed with the patient, and he responded by saying, "I know. But it is the only thing that works. I really need to sleep, and without it the voices keep me awake all night." 10/22 -The patient's history of benzodiazepine continues to be noted. However, the patient's current condition, we continue to feel that the use of temazepam for sleep is medically necessary and appropriate. 10/25--d/c temazepam as seems to be contributing to AMS? (5) Auditory hallucinations: 10/16 -Patient's chief complaint has to do with persistent persecutory auditory hallucinations. He describes the voices as being "electronically generated," and although he tells us that he does not know the source of the electronically generated voices, he says that he has no doubt that they are real and are coming from some entity that is trying to torture and/or kill him. His explanation for the suicide attempt was not that he has been depressed, but, instead, because he feels tortured by the voices and finds that he can no longer tolerate hearing them and no longer tolerate feeling terrorized by them. Patient also explains that he would rather at his own hand than risk being murdered by unknown forces and unknown means. -The patient's condition has been largely treatment resistant to psychiatric medications. With each antipsychotic medication mentioned, the patient's response has been to assert that the specific medicine mentioned has been tried and was not effective, or has been tried and caused worsening symptoms. Today, he asserts that he has taken clozapine in the past, but that it was not effective. He has unable to identify the dose, and does not recall when or where it was prescribed, but says that he believes that he took it for "a month or 2" before it was discontinued as ineffective. Other options for the patient might be a trial of perphenazine or loxapine. For now, the patient has indicated that he would prefer to remain on Geodon 80 mg twice a day. 3/4 - Auditory hallucinations are ongoing. Pt does report that the voices are quieter, but when asked for how long he states "just now, since you asked" - Unclear how reliable patient's reports are on this topic, though it is anticipated ongoing titration of clozapine may be helpful for this 3/5 - Pt more focused on "head buzzing" today, does not mention auditory hallucinations today though this does not mean he is not experiencing them 3/6 -Today, the patient reports that he is troubled both by "a buzzing sound" in both ears, as well as by voices". He tells us that he believes that the voices are being generated by a computer and that the threats that are made through the's "voices" are genuine and represent a mortal danger. He insists that he is being told that he is going to be murdered. -I tried to talk to the patient about the fact that his records, going back many years, speak to the presence of similar perceptual disturbances and similar believes. The patient responds by saying, "they have come close to killing me a number of times. 1 of these days they are going to do it!" -We are discontinuing Geodon today and will be increasing his dose of clozapine, beginning tonight. The new dose of clozapine will be 150 mg at bedtime and 25 mg in the morning. We expect that we will need to continue to titrate. We will also reintroduce clozapine, albeit at a lower dose, should his psychiatric condition worsen. Our concern at this point is excess sedation associated with our current cross titration of Geodon and clozapine. 10/23 - Pt denies significant change from above at this time 10/24 - Ongoing, unchanged with current dose of clozapine - pt would likely require further titration of clozapine to therapeutic range; however, this titration must be balanced with concerns the medication may be causing EPS and parkinsonism - Will reduce dose of clozapine to 150mg qHS and suggest reduced pace of titration 10/28 --no change on current dose of Clozaril, will ask Dr. Dorsey to provide second opinion re: use and dose of Clozaril given course in past week. 10/29 - No change in AH at this time Risk Factors Assessment Male: Yes : Yes Do You Have Access To A Gun?: No Health Problems: No Mental Health Diagnoses: Yes Substance Use Disorders: Yes Previous Attempt: Yes Family History of Suicide: Yes (cousin) Previous Psychiatric Hospitalization: Yes Hopelessness: Yes Protective Factors Assessment Spiritism Beliefs: No : No Responsible for Young Children: No Employed: No Stable Relationships: No Supportive Family: No Good Rapport with Provider: No Interval History Identifying Information SCOTT ROBERTO is a 74-year-old M who currently lives in [place] at the [facility]. Pt has a history of schizophrenia and this is his fourth psychiatric admission to our unit in roughly the last 7 months, with one admission to [facility] in that time as well. Pt was admitted on 10/14/19 12:33 on a 201 voluntary commitment after being treated on the medical floor since 10/09/2019 after an intentional Tylenol overdose. 306 conversion hearing was held on 10/16/2019 and his 305 IOC was converted to an inpatient commitment. Chief Complaint "I'm not sleeping. It's tormenting sleep." Review of Systems Notes Constitutional: reports poor, inconsistent sleep Cardiovascular: denied Respiratory: denied Gastrointestinal: denied Neurological: denied Psychiatric: denies symptoms other than stated above Total of at least 10 systems reviewed, pertinent positives as above and in HPI. Sleep Information Total Hours of Sleep: 7.25 Sleep Comments: pt on q-15 minute checks Meal Information Percent Meal Consumed - Breakfast: 100 Percent Meal Consumed - Lunch: 100 Percent Meal Consumed - Dinner: 100 Subjective Subjective Patient was seen & assessed and interval progress reviewed with treatment team. Staff reports the patient has been appearing less confused since yesterday afternoon/evening. Patient did attend some group programming yesterday evening, where he was able to participate appropriately. Patient rated his mood in 03/28 and "sleepy" during community meeting last evening. Patient was seen today to assess progress since admission. He begins conversation by informing this provider "I am not sleeping." When asked to describe his sleep, patient states that it is "tormenting sleep." He later interjects "inconsistent you might say." Patient later seems to contradict himself, as when this provider asks how long the patient believes he slept last evening, he states "I could not tell you, it is like I blacked out." Patient continued to contradict himself several times during our conversation. At one point, he states "walking helps me." When provided with several options of what the patient believes walking assists with (i.e. calming anxiety, providing distraction, improving balance/strength), he states "nothing, it doesn't help with anything." Patient denies any concerns related to his mood; however, he continues to report suicidal ideation related to persistent auditory hallucinations. While patient does feel as though he would be likely to seek help prior to acting on these thoughts, the patient speaks about suicide by stating "it is still an option." Patient denies additional needs or concerns at this time. He does believe that he has noticed improvement in confusion since clozapine had been discontinued. Patient continues to report intermittent jaw stiffness, for which he continues to request benztropine. Education was provided to the patient regarding the use of this medication most often for a medication reaction - which patient is likely not experiencing as he is no longer prescribed an antipsychotic medication. Physical Exam Psychiatric Orientation: alert and cooperative (superficially) Apperance: appropriately dressed (Wearing jeans and a tejon green sweater), appropriately groomed (appearing far less disheveled today) and appeared stated age Eye Contact: good eye contact Motor Behavior: steady gait and station and no abnormal motor movements Speech: normal rate/rhythm/volume of speech (brief responses to questions) Affect: + flat affect (though demonstrates a timid smile intermittently ) Mood: no depressed mood Thought Process: clear/coherent thought process (often contradicting himself during conversation) and + concrete thought process Thought Content: + hopelessness; not paranoid Suicidal Thoughts: + reports suicidal thoughts and + reports suicidal intent Pt does feel as though he could seek help before acting on thoughts; though SI related to ongoing hallucinations continues Homicidal Thoughts: denies homicidal thoughts Hallucinations: + auditory hallucinations (ongoing "head buzzing" and voices); no visual hallucinations Cognition: language grossly intact; + attention not intact Insight: + impaired insight Judgement: + impaired judgement Vital Signs (Past 24 Hours) Last Vital Signs Temp 36.7 C 11/02/19 06:39 Pulse 87 11/02/19 06:39 Resp 18 11/02/19 06:39 BP 134/72 11/02/19 06:39 Pulse Ox 96 10/22/19 23:30 Results & Data ([facility]) Current Inpatient Medications Current Inpatient Medications: Current Inpatient Medications Al Hydrox/Mg Hydrox/Simethicone (Maalox) 30 ml PO Q4H PRN PRN Reason: GI Upset Stop: 11/13/19 13:39 Benztropine Mesylate (Cogentin) 0.5 mg PO BID PRN PRN Reason: EPS/restlessness Stop: 11/28/19 20:59 Last Admin: 11/01/19 12:40 Dose: 0.5 mg Documented by: Bismuth Subsalicylate (Kaopectate) 15 ml PO PRN PRN PRN Reason: Loose Stool Stop: 11/13/19 13:39 Docusate Sodium (Colace) 100 mg PO BID MAG Stop: 11/13/19 20:59 Last Admin: 11/02/19 08:20 Dose: 100 mg Documented by: Hydroxyzine HCl (Vistaril) 50 mg PO HSZ PRN PRN Reason: Insomnia Stop: 11/13/19 13:39 Hydroxyzine HCl (Vistaril) 25 mg PO Q4H PRN PRN Reason: Anxiety Stop: 11/13/19 13:39 Magnesium Hydroxide (Milk Of Magnesia) 30 ml PO DAILY PRN PRN Reason: Constipation Stop: 11/13/19 13:39 Magnesium Oxide (Mag-Ox) 400 mg PO DAILY MAG Stop: 11/14/19 08:59 Last Admin: 11/02/19 08:20 Dose: 400 mg Documented by: Polyethylene Glycol (Miralax Powder Packet) 17 gm PO DAILY MAG Stop: 11/14/19 08:59 Last Admin: 11/02/19 08:20 Dose: 17 gm Documented by: Potassium Chloride (Klor-Con M20) 20 meq PO DAILY MAG Stop: 11/14/19 08:59 Last Admin: 11/02/19 08:20 Dose: 20 meq Documented by: Senna/Docusate Sodium (Senokot S) 1 tab PO QAM MAG Stop: 11/14/19 08:59 Last Admin: 11/02/19 08:21 Dose: 1 tab Documented by: Sodium Chloride (Regino Ramirez Nasal) 1 - 2 sprays NA PRN PRN PRN Reason: Nasal Dryness/Congestion Stop: 11/13/19 13:39 Temazepam (Restoril) 7.5 mg PO HSZ MAG Stop: 11/27/19 21:59 Last Admin: 11/01/19 20:36 Dose: 7.5 mg Documented by: Mental Health & Subst Abuse Tx Psychiatrist Name of Psychiatrist: [facility] - Dr. Alves Psychiatrist's Psychiatric Appointment Comment: [address] [facility] [address], [address], [place] [address] Therapist Name of Therapist: none [facility] Former Name of [facility] Former: Shruti Mcbride Phone Number for [facility] Former: [phone] Case Management Appointment Comment: Comes to see you at the [facility] Post Discharge Appointments Primary Care Physician Name Of Family Doctor: [facility] - Dr. Jeff Lopez Primary Care Provider Appointment Comment: [address], [address], [place] [address] Neurologist Name of Neurologist: GRAZYNA Caal Neurologist's Date of Appointment with Neurologist: 11/17/19 Neurology Appointment Comment: [address], [place] [address] Contact Information Discharge Contact Information Comment: JERRELL CRANER (1) Schizophrenia Schizophrenia type: paranoid schizophrenia Qualified Code(s): F20.0 - Paranoid schizophrenia (2) Hypertension Hypertension type: essential hypertension Qualified Code(s): I10 - Essential (primary) hypertension
[2019-11-02] MEDS: BENZTROPINE MESYLATE 0.5 MG TAB PO PRN ×2 (11:08→17:02)
[2019-11-02] MEDS: TEMAZEPAM 7.5 MG CAPSULE PO SCH (21:12)
[2019-11-03] MEDS: POTASSIUM CHLORIDE 20 MEQ TABCR PO SCH (08:01)
[2019-11-03] MEDS: DOCUSATE SODIUM 100 MG CAP PO SCH ×2 (08:01→20:05)
[2019-11-03] MEDS: MAGNESIUM OXIDE 400 MG TAB PO SCH (08:01)
[2019-11-03] MEDS: DOCUSATE SODIUM/SENNA 50/8.6MG TAB PO SCH (08:02)
[2019-11-03] MEDS: POLYETHYLENE (MIRALAX) 17 GM PACK PO SCH (08:16)
[2019-11-03] MEDS: BENZTROPINE MESYLATE 0.5 MG TAB PO PRN (09:27)
--- NOTE | 2019-11-03 09:33 | Psychiatric Progress Note ---
Date of Service November 03, 2019 Impression / Recommendations Impression 74-year-old male with chronic schizophrenia who presented 10/08/2019 after he was found unresponsive at the [facility] and admitted to taking a Tylenol overdose in an attempt to end his life. Admitted to the hospitalist service for 6 days, and transferred voluntarily to our unit on 10/14/19. He was on an involuntary 305 outpatient commitment converted to inpatient on 10/16/19. Mirtazapine and Xanax were discontinued as he reported they were ineffective. He was started on temazepam while on the hospitalist service for reports of poor sleep, and this medication has appeared to be effective - will need to determine discharge plans given history of benzodiazepine abuse; however, patient is likely to be discharged back to his [facility] where medication can be monitored. Pt did consent to retrial of Clozaril starting 10/17, however, trial was halted on 10/29 when patient demonstrated increased confusion and EPS. Clozapine was discontinued after we were unable to titrate to effective dosing due to side effects. Pt continues to report AH and suicidal ideation, inpatient hospitalization remains the least restrictive setting for him at this time. He continues to seem somewhat disorganized; however, is beginning to participate appropriately in group programming again. (1) Schizophrenia: 10/14 - Continue ziprasidone as initiated on the medical floor - resume 80mg BID dosing with meals - Continue benztropine 0.5mg as needed for reports of stiffness, though it remains unclear if this is truly related to his antipsychotic medication - Mirtazapine was discontinued on the medical floor as patient feels it had been ineffective - Continue temazepam 15mg qHS for sleep - at least while hospitalized in a supervised setting, as patient has a history of benzodiazepine abuse - Will coordinate treatment with patient's outpatient psychiatric supports - Encourage participation in group and recreational programming 10/15 -Continue ziprasidone; reviewed fasting lipid profile and fasting glucose from 02/2019, all values were within normal limits. -Discussed trial of clozapine; patient states that he believes he was on this medication in the past and that it was ineffective. Continue to provide education and encourage retrial, as he has had limited response to multiple other antipsychotics, and it would also help address suicidal thoughts in addition to psychosis. -Involve outpatient rehabilitation case coordinator and coordinate with psychiatrist, Dr. Alves. 10/16 -The plan is to continue ziprasidone 80 mg twice a day. We discussed other treatment options with the patient, and he says that he is not interested in trying the various options suggested. He tends to respond in the affirmative every time he is asked whether he has ever taken a number of specific medications, and replies in each instance "it did not help." He does say, somewhat convincingly, that he took clozapine (dose unspecified and unknown by the patient) a number of years ago for "a month or 2," and that it did not help. Re-challenging the patient with clozapine may be helpful, but at present the patient indicates that he will refuse to take it. -The patient hesitates when asked about loxapine and perphenazine, but then says that he has taken both. Loxapine is not on the hospital formulary. Today, the patient says that he is not interested in trying either of these medications "again." -Today, the patient tells us that he "really does not" want to go to the [facility] ("[facility] although he had previously said that he might be interested in doing that. He adds that he does feel safer in a hospital, but feels that he would like to work towards being able to be discharged back to the community at this point. 3 --reconsented for retrial of Clozaril following review of CBC and EKG, patient aware to monitor constipation and sialorrhea and notify staff. will dose at hs and titrate by 25 mg nightly, repeat CBC in 1 week. 10/18--titrate Clozaril to 50 mg po qhs, Dr. Campos notified to consider EKG for repeat QTC on med combo as dose is increased, EPS apparently predates start of Clozaril and is not new, he is agreeable to add 0.5 mg Cogentin standing order as trial basis. 10/19 - Continue clozapine titration (now ordered for automatic titration of 25mg each evening), pt to receive 75mg tonight - Pt reports his condition remains unchanged at this time, but is aware that clozapine will need to be titrated to an effective dose range - At this time, patient maintains his desire would be for eventual discharge back to the [facility] - no longer requesting [facility] referral - He remains suicidal and continues to report head buzzing and auditory hallucinations that are overwhelming to him 10/20 - Continue clozapine titration - pt to receive 100mg tonight - Will reduce ziprasidone to 60mg BID given continued titration of clozapine and reported ineffectiveness of the medication - will order an EKG for tomorrow morning, given cross-titration putting patient at increased risk of QTc prolongation. - Ongoing discussions regarding discharge planning - Pt continues to verbalize SI and feels he cannot contract for safety outside of the hospital setting 10/21 - Clozapine to be titrated to 125mg this evening; will continue ziprasidone 60mg BID for now though can consider ongoing taper - EKG ordered this morning, and reviewed QTc 445 - Reports ongoing SI - stating he is "pretty d*mn close" to wanting to - Discharge planning meeting scheduled for tomorrow 10/22 -Discharge remaining has been postponed. -Ziprasidone was held this morning, and the patient's cognition seems to have cleared. He is fully oriented and has not shown evidence of confusion. The patient, himself, notes that his thinking does seem to be more clear than it had been. -We will further titrate clozapine 250 mg at bedtime and 25 mg in the morning. -Because of persistent disturbing auditory hallucinations that the patient reports prevent him from easily inducing and maintaining sleep we will increase his dose of temazepam from 15 mg at bedtime for sleep to a dose of 22.5 mg at bedtime as needed sleep. -Although the patient's cognition seems to have improved, staff recall that during at least 1 previous admission the patient had similar mental status alterations and a urinary tract infection was found to been contributory. For that reason, we have ordered a urinalysis. -The patient has been demonstrating a shuffling gait, and on testing today a substantial degree of cogwheel rigidity was noted. The patient also reports a feeling "jumpy" and "restless." He had been receiving benztropine 0.5 mg twice a day, and while this may have been helpful, it seems not to have been fully effective. We will try trihexyphenidyl 2 mg stat and then 2 mg twice a day, and titrate further as indicated. 10/23 - Titrate clozapine to 25mg qAM and 200mg qHS - continue to hold ziprasidone at this time - Pt continues to reports stiffness and difficulty with ambulation, given that we are continuing to titrate clozapine we will order an additional prn dose of trihexyphenidyl 2mg with consideration to schedule the dose if necessary - UA results reviewed - no indication for current UTI - Will need to continue to discuss appropriate discharge timeline - patient remains suicidal 10/24 - Given concern for confusion, EPS and parkinsonism, morning dose of clozapine was held - Will reduce patient's dose to 150mg qHS and plan for a slower titration. This dosage continues to be subtherapeutic, and patient will require advancement of dose as tolerated - Will discontinue trihexyphenidyl due to concern for urinary retention - will resume benztropine 1mg BID for ongoing stiffness and EPS - Will plan to reduce dose of temazepam to 7.5mg with a one-time repeat if necessary - Pt placed on MNPR due to ambulatory concerns, somewhat disruptive behavior related to his physical complaints, and need for close observation at this time 10/27 --resume low dose Restoril as seems more disorganized with poorer quality sleep, reviewed can impact risk of falls, ?anticholinergic side effects 10/28 --will decrease Cogentin given potential that anticholinergic side effects are worsening his cognition. 10/29 - Will discontinue clozapine at this time - allow patient to clear for a period of time and then consider resuming an antipsychotic medication as he con tinues to experience auditory hallucinations - Will continue Cogentin, but switch to prn - unlikely to require regularly until/unless an antipsychotic medication is resumed. Agree with concern the m edication may increase risk of confusion/falls - Resumed MNPR due to behaviors associated with confusion that are not compatible with and would be disruptive to a roommate at this time 10/30 - holding off starting a different antipsychotic at this time to give time to clear from potential worsening of presentation from clozapine trial, maintained MNPR for now 10/31 plan unchanged for now, consider options to treat psychotic processes that appear ongoing so far while holding for now as potential that medication reaction adding to presentation 11/01 - Continue to hold clozapine - consider alternative antipsychotic agents to target auditory hallucinations which are ongoing - Will allow for a 7.5mg repeat dose of temazepam, as patient continues to report poor sleep. While temazepam may contribute to confusion, poor quality of sleep may be contributing as well. Pt should not receive an additional dose if he is appearing confused or if gait is unstable. - Pt continues to report suicide "it's still an option" if AH continue - he is admitted presently to feeling as though he would seek help before acting on these thoughts - Will need to scheduled discharge planning meeting with the [facility] once patient is appropriate to participate 11/02 - Continue hold on clozapine - will plan to discuss treatment alternatives during treatment team tomorrow morning in order to provide additional time to clear after clozapine initiation. Pt reports no improvement in symptoms since admission and is agreeable with trial of medications to target his auditory hallucinations - he is specifically requesting "Valium three times a day." - Reviewed history of past antipsychotic medication trials: Zyprexa ("is a joke", restlessness, ineffective); Geodon (ineffective); Abilify (ineffective) - Pt reports desire to return to the [facility] after discharge, but continues to report SI and is not cleared for discharge at this time (2) Tylenol overdose: 10/14 - Continue management per medical team - Recheck LFTs tomorrow morning. Today, AST 70, ALT 631. 10/15 -Continue to trend down. AST 54, ALT 538. We will reorder LFTs for Saturday. Avoid hepatotoxic agents. 10/16 -Patient reports that he remains suicidal and confirms that his overdose of Tylenol was taken with the intent of causing his own . (3) Hypertension: 10/14 - Home medication includes clonidine 0.1mg qHS - Will continue to monitor blood pressure with daily vitals, consider resuming 10/20 - We have continued daily blood pressures, some of which have been mildly elevated but not consistently - Given increased fatigue and concern for falls related to intermittent unsteadiness with ambulation, will continue to hold clonidine at this time 10/22 -Today, the patient's blood pressure is within normal limits. (4) Benzodiazepine abuse: 10/14 - Historical diagnosis of benzodiazepine abuse - Will not continue home dose of alprazolam - but will offer temazepam 15mg qHS for sleep as it has been effective - Will need to consider the safety of this medication regimen, and may suggest discontinuation of benzodiazepines at discharge given his history - Benzodiazepines are not recommended for the patient if he would be discharged to an unsupervised setting or expected to manage his own medication administration 10/16 -The patient is history of benzodiazepine abuse is noted. That history not withstanding, at seems apparent that the only hypnotic medication that has been consistently effective for this patient has been temazepam, and there is no evidence that he has been misusing this medication in the community prior to admission. -The material risks of temazepam, including but not limited to, risk of a physical habituation, risk of complicated and possibly fatal withdrawal symptoms, risk of accidents, falls and other injuries, as well as risk of worsening depression and clouded consciousness/cognitive impairment were reviewed with the patient, and he responded by saying, "I know. But it is the only thing that works. I really need to sleep, and without it the voices keep me awake all night." 10/22 -The patient's history of benzodiazepine continues to be noted. However, the patient's current condition, we continue to feel that the use of temazepam for sleep is medically necessary and appropriate. 10/25--d/c temazepam as seems to be contributing to AMS? (5) Auditory hallucinations: 10/16 -Patient's chief complaint has to do with persistent persecutory auditory hallucinations. He describes the voices as being "electronically generated," and although he tells us that he does not know the source of the electronically generated voices, he says that he has no doubt that they are real and are coming from some entity that is trying to torture and/or kill him. His explanation for the suicide attempt was not that he has been depressed, but, instead, because he feels tortured by the voices and finds that he can no longer tolerate hearing them and no longer tolerate feeling terrorized by them. Patient also explains that he would rather at his own hand than risk being murdered by unknown forces and unknown means. -The patient's condition has been largely treatment resistant to psychiatric medications. With each antipsychotic medication mentioned, the patient's response has been to assert that the specific medicine mentioned has been tried and was not effective, or has been tried and caused worsening symptoms. Today, he asserts that he has taken clozapine in the past, but that it was not effective. He has unable to identify the dose, and does not recall when or where it was prescribed, but says that he believes that he took it for "a month or 2" before it was discontinued as ineffective. Other options for the patient might be a trial of perphenazine or loxapine. For now, the patient has indicated that he would prefer to remain on Geodon 80 mg twice a day. 3/4 - Auditory hallucinations are ongoing. Pt does report that the voices are quieter, but when asked for how long he states "just now, since you asked" - Unclear how reliable patient's reports are on this topic, though it is anticipated ongoing titration of clozapine may be helpful for this 10/21 - Pt more focused on "head buzzing" today, does not mention auditory hallucinations today though this does not mean he is not experiencing them 10/22 -Today, the patient reports that he is troubled both by "a buzzing sound" in both ears, as well as by voices". He tells us that he believes that the voices are being generated by a computer and that the threats that are made through the's "voices" are genuine and represent a mortal danger. He insists that he is being told that he is going to be murdered. -I tried to talk to the patient about the fact that his records, going back many years, speak to the presence of similar perceptual disturbances and similar believes. The patient responds by saying, "they have come close to killing me a number of times. 1 of these days they are going to do it!" -We are discontinuing Geodon today and will be increasing his dose of clozapine, beginning tonight. The new dose of clozapine will be 150 mg at bedtime and 25 mg in the morning. We expect that we will need to continue to titrate. We will also reintroduce clozapine, albeit at a lower dose, should his psychiatric condition worsen. Our concern at this point is excess sedation associated with our current cross titration of Geodon and clozapine. 10/23 - Pt denies significant change from above at this time 10/24 - Ongoing, unchanged with current dose of clozapine - pt would likely require further titration of clozapine to therapeutic range; however, this titration must be balanced with concerns the medication may be causing EPS and parkinsonism - Will reduce dose of clozapine to 150mg qHS and suggest reduced pace of titration 10/28 --no change on current dose of Clozaril, will ask Dr. Dorsey to provide second opinion re: use and dose of Clozaril given course in past week. 10/29 - No change in AH at this time Risk Factors Assessment Male: Yes : Yes Do You Have Access To A Gun?: No Health Problems: No Mental Health Diagnoses: Yes Substance Use Disorders: Yes Previous Attempt: Yes Family History of Suicide: Yes (cousin) Previous Psychiatric Hospitalization: Yes Hopelessness: Yes Protective Factors Assessment Yarsani Beliefs: No : No Responsible for Young Children: No Employed: No Stable Relationships: No Supportive Family: No Good Rapport with Provider: No Interval History Identifying Information SCOTT ROBERTO is a 74-year-old M who currently lives in [place] at the [facility]. Pt has a history of schizophrenia and this is his fourth psychiatric admission to our unit in roughly the last 7 months, with one admission to [facility] in that time as well. Pt was admitted on 10/14/19 12:33 on a 201 voluntary commitment after being treated on the medical floor since 10/09/2019 after an intentional Tylenol overdose. 306 conversion hearing was held on 10/16/2019 and his 305 IOC was converted to an inpatient commitment. Chief Complaint "I have a lot of serious issues right now." Review of Systems Notes Constitutional: reports "noise in my head" is ongoing Cardiovascular: denied Respiratory: denied Gastrointestinal: denied Neurological: denied Psychiatric: denies symptoms other than stated above Total of at least 10 systems reviewed, pertinent positives as above and in HPI. Sleep Information Total Hours of Sleep: 8.5 Sleep Comments: pt appeared to sleep 1.5 hrs during evening shift. pt on q-15 minute checks Meal Information Percent Meal Consumed - Breakfast: 100 Percent Meal Consumed - Lunch: 100 Percent Meal Consumed - Dinner: 100 Subjective Subjective Patient was seen & assessed and interval progress reviewed with nursing and social work. Staff report the patient has continued to attend group programming and has been more interactive. Staff state the patient appeared to have slept through the night, though patient reports poor sleep. Pt was seen today to assess progress since admission. He states to this provider "I have a lot of s erious issues right now." When asked what these issues were, the patient states "the noise in my head, it won't stop." Pt states that he knows what helps his symptoms and requests "Valium three times a day and a medication to help me sleep." We discussed that he has been provided with temazepam to assist with sleep, but that there are medications aside from Valium that are indicated to help with the voices. Pt did cooperate with a brief overview of recent antipsychotic trials. He states that olanzapine "was a joke, that is the treatment at [facility], everyone is on that medication but it doesn't help." Pt states that ziprasidone and aripiprazole have been ineffective as well. He is unable to recall a medication, aside from Valium, that was beneficial for his hallucinations. Treatment plan was reviewed with the patient, offering explanation for having a period of time off of clozapine before initiating a new medication. Pt is agreeable with further discussion. Pt does admit to ongoing hopelessness and states "I'm suicidal right now. I want to shoot myself." Pt states that he has no specific temptations on the unit, as "this place is pretty well de-bunked." He states he is hoping to return to the [facility], but admits he does not feel safe for discharge at this time. Pt states he will continue to attend groups "so you know I'm cooperative", but makes a point to say "they d on't apply. Everyone is talking about their family issues, I don't have any of that." Pt denies other needs or concerns at this time. Physical Exam Psychiatric Orientation: alert and oriented x 3 Apperance: appropriately dressed, appropriately groomed and appeared stated age Eye Contact: good eye contact Motor Behavior: steady gait and station and no abnormal motor movements Speech: normal rate/rhythm/volume of speech Affect: + flat affect Mood: + anxious mood; no depressed mood Thought Process: goal directed thought process and + concrete thought process Thought Content: + preoccupation (with voices and "head noise") and + hopelessness; not paranoid and no delusions Suicidal Thoughts: + reports suicidal thoughts and + reports suicidal plan (reporting "I want to shoot myself") Homicidal Thoughts: denies homicidal thoughts Hallucinations: + auditory hallucinations (ongoing auditory hallucinations of voices and "head noise"); no visual hallucinations Cognition: attention grossly intact and language grossly intact Insight: + impaired insight Judgement: + impaired judgement Vital Signs (Past 24 Hours) Last Vital Signs Temp 36.7 C 11/03/19 06:29 Pulse 82 11/03/19 06:29 Resp 18 11/03/19 06:29 BP 130/84 11/03/19 06:29 Pulse Ox 96 10/22/19 23:30 Results & Data ([facility]) Current Inpatient Medications Current Inpatient Medications: Current Inpatient Medications Al Hydrox/Mg Hydrox/Simethicone (Maalox) 30 ml PO Q4H PRN PRN Reason: GI Upset Stop: 11/13/19 13:39 Benztropine Mesylate (Cogentin) 0.5 mg PO DAILY PRN PRN Reason: EPS/restlessness Stop: 11/29/19 11:31 Last Admin: 11/03/19 09:27 Dose: 0.5 mg Documented by: Bismuth Subsalicylate (Kaopectate) 15 ml PO PRN PRN PRN Reason: Loose Stool Stop: 11/13/19 13:39 Docusate Sodium (Colace) 100 mg PO BID MAG Stop: 11/13/19 20:59 Last Admin: 11/03/19 08:01 Dose: 100 mg Documented by: Hydroxyzine HCl (Vistaril) 50 mg PO HSZ PRN PRN Reason: Insomnia Stop: 11/13/19 13:39 Hydroxyzine HCl (Vistaril) 25 mg PO Q4H PRN PRN Reason: Anxiety Stop: 11/13/19 13:39 Magnesium Hydroxide (Milk Of Magnesia) 30 ml PO DAILY PRN PRN Reason: Constipation Stop: 11/13/19 13:39 Magnesium Oxide (Mag-Ox) 400 mg PO DAILY [facility] Stop: 11/14/19 08:59 Last Admin: 11/03/19 08:01 Dose: 400 mg Documented by: Polyethylene Glycol (Miralax Powder Packet) 17 gm PO DAILY MAG Stop: 11/14/19 08:59 Last Admin: 11/03/19 08:16 Dose: 17 gm Documented by: Potassium Chloride (Klor-Con M20) 20 meq PO DAILY [facility] Stop: 11/14/19 08:59 Last Admin: 11/03/19 08:01 Dose: 20 meq Documented by: Senna/Docusate Sodium (Senokot S) 1 tab PO QAM MAG Stop: 11/14/19 08:59 Last Admin: 11/03/19 08:02 Dose: 1 tab Documented by: Sodium Chloride (Manati Nasal) 1 - 2 sprays NA PRN PRN PRN Reason: Nasal Dryness/Congestion Stop: 11/13/19 13:39 Temazepam (Restoril) 7.5 mg PO HSZ MAG Stop: 11/27/19 21:59 Last Admin: 11/02/19 21:12 Dose: 7.5 mg Documented by: Mental Health & Subst Abuse Tx Psychiatrist Name of Psychiatrist: [facility] - Dr. Alves Psychiatrist's Psychiatric Appointment Comment: [address], [address], [place] [address] Therapist Name of Therapist: none Capture Manager Name of Capture Manager: Shruti Mcbride Phone Number for Capture Manager: [phone] Case Management Appointment Comment: Comes to see you at the [facility] Post Discharge Appointments Primary Care Physician Name Of Family Doctor: [facility] - Dr. Jeff Lopez Primary Care Provider Appointment Comment: [address], [address], [place] [address] Neurologist Name of Neurologist: [facility] - Dr. Caal Neurologist's Date of Appointment with Neurologist: 11/17/19 Neurology Appointment Comment: [address], [place] [address] Contact Information Discharge Contact Information Comment: [facility] (1) Schizophrenia Schizophrenia type: paranoid schizophrenia Qualified Code(s): F20.0 - Paranoid schizophrenia (2) Hypertension Hypertension type: essential hypertension Qualified Code(s): I10 - Essential (primary) hypertension
[2019-11-03] MEDS: TEMAZEPAM 7.5 MG CAPSULE PO SCH (20:06)
[2019-11-04] MEDS: MAGNESIUM OXIDE 400 MG TAB PO SCH (08:42)
[2019-11-04] MEDS: POTASSIUM CHLORIDE 20 MEQ TABCR PO SCH (08:42)
[2019-11-04] MEDS: DOCUSATE SODIUM 100 MG CAP PO SCH ×2 (08:42→20:39)
[2019-11-04] MEDS: DOCUSATE SODIUM/SENNA 50/8.6MG TAB PO SCH (08:42)
[2019-11-04] MEDS: POLYETHYLENE (MIRALAX) 17 GM PACK PO SCH (08:42)
[2019-11-04] MEDS: BENZTROPINE MESYLATE 0.5 MG TAB PO PRN (09:12)
--- NOTE | 2019-11-04 11:30 | Psychiatric Progress Note ---
Date of Service November 04, 2019 Impression / Recommendations Impression 74-year-old male with chronic schizophrenia who presented 10/08/2019 after he was found unresponsive at the [facility] and admitted to taking a massive, potentially lethal Tylenol overdose in an attempt to end his life. Admitted to the hospitalist service for 6 days, and transferred voluntarily to our unit on 10/14/19. He was on an involuntary 305 outpatient commitment which was converted to inpatient on 10/16/19 (expires 11/21/2019). He has had numerous medication changes: Mirtazapine and Xanax were discontinued as he reported they were ineffective. He was started on temazepam while on the hospitalist service for reports of poor sleep, and this medication appears to be effective, although he continues to report poor sleep. We will need to consider safety concerns at discharge, given his history of benzodiazepine abuse and chronic suicidality/overdose risk, as in the past he has not allowed it [facility] staff to hold his medications and insisted on keeping them in his room.he was initially placed back on ziprasidone, but reported it was ineffective and agreed to a retrial of Clozaril 10/17, however, trial was halted on 10/29 when patient demonstrated increased confusion and EPS. Clozapine was discontinued after we were unable to titrate to effective dosing due to side effects, he is no longer on an antipsychotic, and is now refusing all medications in that class. He continues to report AH and suicidal ideation, and inpatient hospitalization remains the least restrictive setting for him at this time. He continues to seem somewhat disorganized and irritable; however, is beginning to participate appropriately in group programming again. (1) Schizophrenia: 10/14 - Continue ziprasidone as initiated on the medical floor - resume 80mg BID dosing with meals - Continue benztropine 0.5mg as needed for reports of stiffness, though it remains unclear if this is truly related to his antipsychotic medication - Mirtazapine was discontinued on the medical floor as patient feels it had been ineffective - Continue temazepam 15mg qHS for sleep - at least while hospitalized in a supervised setting, as patient has a history of benzodiazepine abuse - Will coordinate treatment with patient's outpatient psychiatric supports - Encourage participation in group and recreational programming 10/15 -Continue ziprasidone; reviewed fasting lipid profile and fasting glucose from 02/2019, all values were within normal limits. -Discussed trial of clozapine; patient states that he believes he was on this medication in the past and that it was ineffective. Continue to provide education and encourage retrial, as he has had limited response to multiple other antipsychotics, and it would also help address suicidal thoughts in addition to psychosis. -Involve outpatient field case manager and coordinate with psychiatrist, Dr. Alves. 10/16 -The plan is to continue ziprasidone 80 mg twice a day. We discussed other treatment options with the patient, and he says that he is not interested in trying the various options suggested. He tends to respond in the affirmative every time he is asked whether he has ever taken a number of specific medicat ions, and replies in each instance "it did not help." He does say, somewhat convincingly, that he took clozapine (dose unspecified and unknown by the patient) a number of years ago for "a month or 2," and that it did not help. Re-challenging the patient with clozapine may be helpful, but at present the patient indicates that he will refuse to take it. -The patient hesitates when asked about loxapine and perphenazine, but then says that he has taken both. Loxapine is not on the hospital formulary. Today, the patient says that he is not interested in trying either of these medications "again." -Today, the patient tells us that he "really does not" want to [facility] although he had previously said that he might be interested in doing that. He adds that he does feel safer in a hospital, but feels that he would like to work towards being able to be discharged back to the community at this point. 10/17 --reconsented for retrial of Clozaril following review of CBC and EKG, patient aware to monitor constipation and sialorrhea and notify staff. will dose at hs and titrate by 25 mg nightly, repeat CBC in 1 week. 10/18--titrate Clozaril to 50 mg po qhs, Dr. Campos notified to consider EKG for repeat QTC on med combo as dose is increased, EPS apparently predates start of Clozaril and is not new, he is agreeable to add 0.5 mg Cogentin standing order as trial basis. 10/19 - Continue clozapine titration (now ordered for automatic titration of 25mg each evening), pt to receive 75mg tonight - Pt reports his condition remains unchanged at this time, but is aware that clozapine will need to be titrated to an effective dose range - At this time, patient maintains his desire would be for eventual discharge back to the [facility] - no longer requesting [place] referral - He remains suicidal and continues to report head buzzing and auditory hallucinations that are overwhelming to him 10/20 - Continue clozapine titration - pt to receive 100mg tonight - Will reduce ziprasidone to 60mg BID given continued titration of clozapine and reported ineffectiveness of the medication - will order an EKG for tomorrow morning, given cross-titration putting patient at increased risk of QTc prolongation. - Ongoing discussions regarding discharge planning - Pt continues to verbalize SI and feels he cannot contract for safety outside of the hospital setting 10/21 - Clozapine to be titrated to 125mg this evening; will continue ziprasidone 60mg BID for now though can consider ongoing taper - EKG ordered this morning, and reviewed QTc 445 - Reports ongoing SI - stating he is "pretty d*mn close" to wanting to - Discharge planning meeting scheduled for tomorrow 10/22 -Discharge remaining has been postponed. -Ziprasidone was held this morning, and the patient's cognition seems to have cleared. He is fully oriented and has not shown evidence of confusion. The patient, himself, notes that his thinking does seem to be more clear than it had been. -We will further titrate clozapine 250 mg at bedtime and 25 mg in the morning. -Because of persistent disturbing auditory hallucinations that the patient reports prevent him from easily inducing and maintaining sleep we will increase his dose of temazepam from 15 mg at bedtime for sleep to a dose of 22.5 mg at bedtime as needed sleep. -Although the patient's cognition seems to have improved, staff recall that during at least 1 previous admission the patient had similar mental status alterations and a urinary tract infection was found to been contributory. For that reason, we have ordered a urinalysis. -The patient has been demonstrating a shuffling gait, and on testing today a substantial degree of cogwheel rigidity was noted. The patient also reports a feeling "jumpy" and "restless." He had been receiving benztropine 0.5 mg twice a day, and while this may have been helpful, it seems not to have been fully effective. We will try trihexyphenidyl 2 mg stat and then 2 mg twice a day, and titrate further as indicated. 10/23 - Titrate clozapine to 25mg qAM and 200mg qHS - continue to hold ziprasidone at this time - Pt continues to reports stiffness and difficulty with ambulation, given that we are continuing to titrate clozapine we will order an additional prn dose of trihexyphenidyl 2mg with consideration to schedule the dose if necessary - UA results reviewed - no indication for current UTI - Will need to continue to discuss appropriate discharge timeline - patient remains suicidal 10/24 - Given concern for confusion, EPS and parkinsonism, morning dose of clozapine was held - Will reduce patient's dose to 150mg qHS and plan for a slower titration. This dosage continues to be subtherapeutic, and patient will require advancement of dose as tolerated - Will discontinue trihexyphenidyl due to concern for urinary retention - will resume benztropine 1mg BID for ongoing stiffness and EPS - Will plan to reduce dose of temazepam to 7.5mg with a one-time repeat if necessary - Pt placed on MNPR due to ambulatory concerns, somewhat disruptive behavior related to his physical complaints, and need for close observation at this time 10/27 --resume low dose Restoril as seems more disorganized with poorer quality sleep, reviewed can impact risk of falls, ?anticholinergic side effects 10/28 --will decrease Cogentin given potential that anticholinergic side effects are worsening his cognition. 10/29 - Will discontinue clozapine at this time - allow patient to clear for a period of time and then consider resuming an antipsychotic medication as he continues to experience auditory hallucinations - Will continue Cogentin, but switch to prn - unlikely to require regularly until/unless an antipsychotic medication is resumed. Agree with concern the medication may increase risk of confusion/falls - Resumed MNPR due to behaviors associated with confusion that are not compatible with and would be disruptive to a roommate at this time 10/30 - holding off starting a different antipsychotic at this time to give time to clear from potential worsening of presentation from clozapine trial, maintained MNPR for now 10/31 plan unchanged for now, consider options to treat psychotic processes that appear ongoing so far while holding for now as potential that medication reaction adding to presentation 11/01 - Continue to hold clozapine - consider alternative antipsychotic agents to target auditory hallucinations which are ongoing - Will allow for a 7.5mg repeat dose of temazepam, as patient continues to report poor sleep. While temazepam may contribute to confusion, poor quality of sleep may be contributing as well. Pt should not receive an additional dose if he is appearing confused or if gait is unstable. - Pt continues to report suicide "it's still an option" if AH continue - he is admitted presently to feeling as though he would seek help before acting on these thoughts - Will need to scheduled discharge planning meeting with the [facility] once patient is appropriate to participate 11/02 - Continue hold on clozapine - will plan to discuss treatment alternatives during treatment team tomorrow morning in order to provide additional time to c lear after clozapine initiation. Pt reports no improvement in symptoms since admission and is agreeable with trial of medications to target his auditory hallucinations - he is specifically requesting "Valium three times a day." - Reviewed history of past antipsychotic medication trials: Zyprexa ("is a joke", restlessness, ineffective); Geodon (ineffective); Abilify (ineffective) - Pt reports desire to return to the [facility] after discharge, but continues to report SI and is not cleared for discharge at this time 11/03 -Patient continues to refuse all antipsychotic medication. Advised him that if he is willing for a trial of any medication in his group, to let us know, and he expressed understanding. For now continue temazepam and benztropine as needed for muscle tension. -Continue to attend participate in groups, work on healthy coping skills and discharge safety plan. (2) Tylenol overdose: 10/14 - Continue management per medical team - Recheck LFTs tomorrow morning. Today, AST 70, ALT 631. 10/15 -Continue to trend down. AST 54, ALT 538. We will reorder LFTs for Saturday. Avoid hepatotoxic agents. 10/16 -Patient reports that he remains suicidal and confirms that his overdose of Tylenol was taken with the intent of causing his own . (3) Hypertension: 10/14 - Home medication includes clonidine 0.1mg qHS - Will continue to monitor blood pressure with daily vitals, consider resuming 10/20 - We have continued daily blood pressures, some of which have been mildly elevated but not consistently - Given increased fatigue and concern for falls related to intermittent unsteadiness with ambulation, will continue to hold clonidine at this time 10/22 -Today, the patient's blood pressure is within normal limits. (4) Benzodiazepine abuse: 10/14 - Historical diagnosis of benzodiazepine abuse - Will not continue home dose of alprazolam - but will offer temazepam 15mg qHS for sleep as it has been effective - Will need to consider the safety of this medication regimen, and may suggest discontinuation of benzodiazepines at discharge given his history - Benzodiazepines are not recommended for the patient if he would be discharged to an unsupervised setting or expected to manage his own medication administration 10/16 -The patient is history of benzodiazepine abuse is noted. That history not withstanding, at seems apparent that the only hypnotic medication that has been consistently effective for this patient has been temazepam, and there is no evidence that he has been misusing this medication in the community prior to admission. -The material risks of temazepam, including but not limited to, risk of a physical habituation, risk of complicated and possibly fatal withdrawal symptoms, risk of accidents, falls and other injuries, as well as risk of worsening depression and clouded consciousness/cognitive impairment were reviewed with the patient, and he responded by saying, "I know. But it is the only thing that works. I really need to sleep, and without it the voices keep me awake all night." 10/22 -The patient's history of benzodiazepine continues to be noted. However, the patient's current condition, we continue to feel that the use of temazepam for sleep is medically necessary and appropriate. 10/25--d/c temazepam as seems to be contributing to AMS? 11/03--temazepam 7.5 mg at bedtime was resumed 10/28/2019, and patient has continued on that dose, which appears to be helping for sleep. We will need to explore options to ensure safety with this medication at discharge; patient will be returning to the [facility], but in the past has refused to allow staff to hold his medication bottles, which would not be advisable given his substance abuse history and overdose risk. (5) Auditory hallucinations: 10/16 -Patient's chief complaint has to do with persistent persecutory auditory hallucinations. He describes the voices as being "electronically generated," and although he tells us that he does not know the source of the electronically generated voices, he says that he has no doubt that they are real and are coming from some entity that is trying to torture and/or kill him. His explanation for the suicide attempt was not that he has been depressed, but, instead, because he feels tortured by the voices and finds that he can no longer tolerate hearing them and no longer tolerate feeling terrorized by them. Patient also explains that he would rather at his own hand than risk being murdered by unknown forces and unknown means. -The patient's condition has been largely treatment resistant to psychiatric medications. With each antipsychotic medication mentioned, the patient's response has been to assert that the specific medicine mentioned has been tried and was not effective, or has been tried and caused worsening symptoms. Today, he asserts that he has taken clozapine in the past, but that it was not effective. He has unable to identify the dose, and does not recall when or where it was prescribed, but says that he believes that he took it for "a month or 2" before it was discontinued as ineffective. Other options for the patient might be a trial of perphenazine or loxapine. For now, the patient has indicated that he would prefer to remain on Geodon 80 mg twice a day. 3/4 - Auditory hallucinations are ongoing. Pt does report that the voices are quieter, but when asked for how long he states "just now, since you asked" - Unclear how reliable patient's reports are on this topic, though it is anticipated ongoing titration of clozapine may be helpful for this 3/5 - Pt more focused on "head buzzing" today, does not mention auditory hallucinations today though this does not mean he is not experiencing them 3/6 -Today, the patient reports that he is troubled both by "a buzzing sound" in both ears, as well as by voices". He tells us that he believes that the voices are being generated by a computer and that the threats that are made through the's "voices" are genuine and represent a mortal danger. He insists that he is being told that he is going to be murdered. -I tried to talk to the patient about the fact that his records, going back many years, speak to the presence of similar perceptual disturbances and similar believes. The patient responds by saying, "they have come close to killing me a number of times. 1 of these days they are going to do it!" -We are discontinuing Geodon today and will be increasing his dose of clozapine, beginning tonight. The new dose of clozapine will be 150 mg at bedtime and 25 mg in the morning. We expect that we will need to continue to titrate. We will also reintroduce clozapine, albeit at a lower dose, should his psychiatric condition worsen. Our concern at this point is excess sedation associated with our current cross titration of Geodon and clozapine. 10/23 - Pt denies significant change from above at this time 10/24 - Ongoing, unchanged with current dose of clozapine - pt would likely require further titration of clozapine to therapeutic range; however, this titration must be balanced with concerns the medication may be causing EPS and parkinsonism - Will reduce dose of clozapine to 150mg qHS and suggest reduced pace of titration 10/28 --no change on current dose of Clozaril, will ask Dr. Dorsey to provide second opinion re: use and dose of Clozaril given course in past week. 10/29 - No change in AH at this time 11/03 -Patient continues to refuse all antipsychotic medication. Advised that if he is willing to trial any medication in this group, to let us know, and he agreed. He often refuses medications for a time before choosing 1. Risk Factors Assessment Male: Yes : Yes Do You Have Access To A Gun?: No Health Problems: No Mental Health Diagnoses: Yes Substance Use Disorders: Yes Previous Attempt: Yes Family History of Suicide: Yes (cousin) Previous Psychiatric Hospitalization: Yes Hopelessness: Yes Protective Factors Assessment Spiritism Beliefs: No : No Responsible for Young Children: No Employed: No Stable Relationships: No Supportive Family: No Good Rapport with Provider: No Interval History Identifying Information SCOTT ROBERTO is a 74-year-old M who currently lives in [place] at the [facility]. Pt has a history of schizophrenia and this is his fourth psychiatric admission to our unit in roughly the last 7 months, with one admission to [facility] in that time as well. Pt was admitted on 10/14/19 12:33 on a 201 voluntary commitment after being treated on the medical floor since 10/09/2019 after an intentional Tylenol overdose. 306 conversion hearing was held on 10/16/2019 and his 305 IOC was converted to an inpatient commitment. Chief Complaint " I don't know, haven't thought about it". Review of Systems Sleep Information Total Hours of Sleep: 8.75 Sleep Comments: pt appeared to sleep 1.5 hrs during evening shift. pt on q-15 minute checks Meal Information Percent Meal Consumed - Breakfast: 100 Percent Meal Consumed - Lunch: 100 Percent Meal Consumed - Dinner: 100 Subjective Subjective Patient was seen & assessed and interval progress reviewed with treatment team. Staff report he had a difficult day yesterday, was more irritable and reporting suicidal thoughts. He stated that he wanted to get rid of the voices in his head, but nothing was helpful. He told staff he wanted to return to the [facility] at discharge, but when asked if he felt able to be safe outside of the hospital, said he did not know. He requested and received Cogentin for restlessness, and continued to request additional doses later in the day, becoming irritable with staff when they educated him on the proper use of the medication. On my assessment, he answers most questions with "I don't know," stating he does not know what his mood is, how he is feeling about discharge planning, or what he would like to see happen in the future. He says that yesterday was "terrible," because "my jaw was tight." He also reports poor sleep, although staff documented almost 9 hours of sleep. He says the only medication that helps his temazepam, and refuses to discuss any other medications including antipsychotics. He says he is convinced that nothing will help the auditory hallucinations of voices. He is going to groups, and says they are "okay." He is unwilling to engage in a discussion of discharge planning or what he is looking forward to when he leaves the hospital. Physical Exam Psychiatric Orientation: alert and cooperative (Partially, answers questions, but often states he does not know.) Apperance: appropriately dressed, appropriately groomed and appeared stated age Eye Contact: good eye contact (Staring) Motor Behavior: steady gait and station Appears to be tensing his jaw muscles at times Minimal speech, monotone Affect: + blunted affect and + irritable affect "I don't know." Thought Process: + concrete thought process Thought Content: + persecution and + hopelessness Suicidal Thoughts: + reports suicidal thoughts Homicidal Thoughts: denies homicidal thoughts Hallucinations: + auditory hallucinations ("They're there, saying negative things.") Cognition: language grossly intact; + recent memory not intact Insight: + poor insight Judgement: + poor judgement Vital Signs (Past 24 Hours) Last Vital Signs Temp 36.8 C 11/04/19 06:35 Pulse 81 11/04/19 06:36 Resp 18 11/04/19 06:35 BP 142/85 H 11/04/19 06:36 Pulse Ox 96 10/22/19 23:30 Results & Data ([facility] [place]) Current Inpatient Medications Current Inpatient Medications: Current Inpatient Medications Al Hydrox/Mg Hydrox/Simethicone (Maalox) 30 ml PO Q4H PRN PRN Reason: GI Upset Stop: 11/13/19 13:39 Benztropine Mesylate (Cogentin) 0.5 mg PO DAILY PRN PRN Reason: EPS/restlessness Stop: 11/29/19 11:31 Last Admin: 11/04/19 09:12 Dose: 0.5 mg Documented by: Bismuth Subsalicylate (Kaopectate) 15 ml PO PRN PRN PRN Reason: Loose Stool Stop: 11/13/19 13:39 Docusate Sodium (Colace) 100 mg PO BID [facility] Stop: 11/13/19 20:59 Last Admin: 11/04/19 08:42 Dose: 100 mg Documented by: Hydroxyzine HCl (Vistaril) 50 mg PO HSZ PRN PRN Reason: Insomnia Stop: 11/13/19 13:39 Hydroxyzine HCl (Vistaril) 25 mg PO Q4H PRN PRN Reason: Anxiety Stop: 11/13/19 13:39 Magnesium Hydroxide (Milk Of Magnesia) 30 ml PO DAILY PRN PRN Reason: Constipation Stop: 11/13/19 13:39 Magnesium Oxide (Mag-Ox) 400 mg PO DAILY [facility] Stop: 11/14/19 08:59 Last Admin: 11/04/19 08:42 Dose: 400 mg Documented by: Polyethylene Glycol (Miralax Powder Packet) 17 gm PO DAILY [facility] Stop: 11/14/19 08:59 Last Admin: 11/04/19 08:42 Dose: 17 gm Documented by: Potassium Chloride (Klor-Con M20) 20 meq PO DAILY [facility] Stop: 11/14/19 08:59 Last Admin: 11/04/19 08:42 Dose: 20 meq Documented by: Senna/Docusate Sodium (Senokot S) 1 tab PO QAM MAG Stop: 11/14/19 08:59 Last Admin: 11/04/19 08:42 Dose: 1 tab Documented by: Sodium Chloride ([place] Nasal) 1 - 2 sprays NA PRN PRN PRN Reason: Nasal Dryness/Congestion Stop: 11/13/19 13:39 Temazepam (Restoril) 7.5 mg PO HSZ MAG Stop: 11/27/19 21:59 Last Admin: 11/03/19 20:06 Dose: 7.5 mg Documented by: Mental Health & Subst Abuse Tx Psychiatrist Name of Psychiatrist: [facility] [place] [facility] - Dr. Alves Psychiatrist's Psychiatric Appointment Comment: [address], [address], [address], [place] [address] Therapist Name of Therapist: none Mop Handle Assembler Name of Mop Handle Assembler: Shruti Mcbride Phone Number for Mop Handle Assembler: [phone] Case Management Appointment Comment: Comes to see you at the [facility] Post Discharge Appointments Primary Care Physician Name Of Family Doctor: [facility] - Dr. Jeff Lopez Primary Care Provider Appointment Comment: [address], [address], [place] [address] Neurologist Name of Neurologist: [facility] - Dr. Caal Neurologist's Date of Appointment with Neurologist: 11/17/19 Time of Appointment with Neurologist: 11:00 a.m. Neurology Appointment Comment: [address] [facility] [address], [place] [address] Contact Information Discharge Discharge Address: [address] [place] [address], [place] [address] Contact Information Comment: [facility] CRR (1) Schizophrenia Schizophrenia type: paranoid schizophrenia Qualified Code(s): F20.0 - Paranoid schizophrenia (2) Hypertension Hypertension type: essential hypertension Qualified Code(s): I10 - Essential (primary) hypertension
[2019-11-04] MEDS: TEMAZEPAM 7.5 MG CAPSULE PO SCH (20:40)
[2019-11-05] MEDS: MAGNESIUM OXIDE 400 MG TAB PO SCH (08:28)
[2019-11-05] MEDS: POTASSIUM CHLORIDE 20 MEQ TABCR PO SCH (08:28)
[2019-11-05] MEDS: DOCUSATE SODIUM 100 MG CAP PO SCH ×2 (08:28→19:59)
[2019-11-05] MEDS: POLYETHYLENE (MIRALAX) 17 GM PACK PO SCH (08:29)
[2019-11-05] MEDS: DOCUSATE SODIUM/SENNA 50/8.6MG TAB PO SCH (08:29)
--- NOTE | 2019-11-05 11:07 | Psychiatric Progress Note ---
Date of Service November 05, 2019 Impression / Recommendations Impression 74-year-old male with chronic schizophrenia who presented 10/08/2019 after he was found unresponsive at the [facility] and admitted to taking a massive, potentially lethal Tylenol overdose in an attempt to end his life. Admitted to the hospitalist service for 6 days, and transferred voluntarily to our unit on 10/14/19. He was on an involuntary 305 outpatient commitment which was converted to inpatient on 10/16/19 (expires 11/21/2019). He has had numerous medication changes: Mirtazapine and Xanax were discontinued as he reported they were ineffective. He was started on temazepam while on the hospitalist service for reports of poor sleep, and this medication appears to be effective, although he continues to report poor sleep. We will need to consider safety concerns at discharge, given his history of benzodiazepine abuse and chronic suicidality/overdose risk, as in the past he has not allowed it [facility] staff to hold his medications and insisted on keeping them in his room.he was initially placed back on ziprasidone, but reported it was ineffective and agreed to a retrial of Clozaril 10/17, however, trial was halted on 10/29 when patient demonstrated increased confusion and EPS. Clozapine was discontinued after we were unable to titrate to effective dosing due to side effects, he is no longer on an antipsychotic, and is now refusing all medications in that class. He continues to report AH and suicidal ideation, and inpatient hospitalization remains the least restrictive setting for him at this time. He continues to seem somewhat disorganized and irritable; however, is beginning to participate appropriately in group programming again. (1) Schizophrenia: 10/14 - Continue ziprasidone as initiated on the medical floor - resume 80mg BID dosing with meals - Continue benztropine 0.5mg as needed for reports of stiffness, though it remains unclear if this is truly related to his antipsychotic medication - Mirtazapine was discontinued on the medical floor as patient feels it had been ineffective - Continue temazepam 15mg qHS for sleep - at least while hospitalized in a supervised setting, as patient has a history of benzodiazepine abuse - Will coordinate treatment with patient's outpatient psychiatric supports - Encourage participation in group and recreational programming 10/15 -Continue ziprasidone; reviewed fasting lipid profile and fasting glucose from 02/2019, all values were within normal limits. -Discussed trial of clozapine; patient states that he believes he was on this medication in the past and that it was ineffective. Continue to provide education and encourage retrial, as he has had limited response to multiple other antipsychotics, and it would also help address suicidal thoughts in addition to psychosis. -Involve outpatient case reviewer and coordinate with psychiatrist, Dr. Alves. 10/16 -The plan is to continue ziprasidone 80 mg twice a day. We discussed other treatment options with the patient, and he says that he is not interested in trying the various options suggested. He tends to respond in the affirmative every time he is asked whether he has ever taken a number of specific medicat ions, and replies in each instance "it did not help." He does say, somewhat convincingly, that he took clozapine (dose unspecified and unknown by the patient) a number of years ago for "a month or 2," and that it did not help. Re-challenging the patient with clozapine may be helpful, but at present the patient indicates that he will refuse to take it. -The patient hesitates when asked about loxapine and perphenazine, but then says that he has taken both. Loxapine is not on the hospital formulary. Today, the patient says that he is not interested in trying either of these medications "again." -Today, the patient tells us that he "really does not" want to go to the [place] [facility] ("[facility] although he had previously said that he might be interested in doing that. He adds that he does feel safer in a hospital, but feels that he would like to work towards being able to be discharged back to the community at this point. 10/17 --reconsented for retrial of Clozaril following review of CBC and EKG, patient aware to monitor constipation and sialorrhea and notify staff. will dose at hs and titrate by 25 mg nightly, repeat CBC in 1 week. 10/18--titrate Clozaril to 50 mg po qhs, Dr. Campos notified to consider EKG for repeat QTC on med combo as dose is increased, EPS apparently predates start of Clozaril and is not new, he is agreeable to add 0.5 mg Cogentin standing order as trial basis. 10/19 - Continue clozapine titration (now ordered for automatic titration of 25mg each evening), pt to receive 75mg tonight - Pt reports his condition remains unchanged at this time, but is aware that clozapine will need to be titrated to an effective dose range - At this time, patient maintains his desire would be for eventual discharge back to the [facility] - no longer requesting [facility] referral - He remains suicidal and continues to report head buzzing and auditory hallucinations that are overwhelming to him 10/20 - Continue clozapine titration - pt to receive 100mg tonight - Will reduce ziprasidone to 60mg BID given continued titration of clozapine and reported ineffectiveness of the medication - will order an EKG for tomorrow morning, given cross-titration putting patient at increased risk of QTc prolongation. - Ongoing discussions regarding discharge planning - Pt continues to verbalize SI and feels he cannot contract for safety outside of the hospital setting 10/21 - Clozapine to be titrated to 125mg this evening; will continue ziprasidone 60mg BID for now though can consider ongoing taper - EKG ordered this morning, and reviewed QTc 445 - Reports ongoing SI - stating he is "pretty d*mn close" to wanting to - Discharge planning meeting scheduled for tomorrow 10/22 -Discharge remaining has been postponed. -Ziprasidone was held this morning, and the patient's cognition seems to have cleared. He is fully oriented and has not shown evidence of confusion. The patient, himself, notes that his thinking does seem to be more clear than it had been. -We will further titrate clozapine 250 mg at bedtime and 25 mg in the morning. -Because of persistent disturbing auditory hallucinations that the patient reports prevent him from easily inducing and maintaining sleep we will increase his dose of temazepam from 15 mg at bedtime for sleep to a dose of 22.5 mg at bedtime as needed sleep. -Although the patient's cognition seems to have improved, staff recall that during at least 1 previous admission the patient had similar mental status alterations and a urinary tract infection was found to been contributory. For that reason, we have ordered a urinalysis. -The patient has been demonstrating a shuffling gait, and on testing today a substantial degree of cogwheel rigidity was noted. The patient also reports a feeling "jumpy" and "restless." He had been receiving benztropine 0.5 mg twice a day, and while this may have been helpful, it seems not to have been fully effective. We will try trihexyphenidyl 2 mg stat and then 2 mg twice a day, and titrate further as indicated. 10/23 - Titrate clozapine to 25mg qAM and 200mg qHS - continue to hold ziprasidone at this time - Pt continues to reports stiffness and difficulty with ambulation, given that we are continuing to titrate clozapine we will order an additional prn dose of trihexyphenidyl 2mg with consideration to schedule the dose if necessary - UA results reviewed - no indication for current UTI - Will need to continue to discuss appropriate discharge timeline - patient remains suicidal 10/24 - Given concern for confusion, EPS and parkinsonism, morning dose of clozapine was held - Will reduce patient's dose to 150mg qHS and plan for a slower titration. This dosage continues to be subtherapeutic, and patient will require advancement of dose as tolerated - Will discontinue trihexyphenidyl due to concern for urinary retention - will resume benztropine 1mg BID for ongoing stiffness and EPS - Will plan to reduce dose of temazepam to 7.5mg with a one-time repeat if necessary - Pt placed on MNPR due to ambulatory concerns, somewhat disruptive behavior related to his physical complaints, and need for close observation at this time 10/27 --resume low dose Restoril as seems more disorganized with poorer quality sleep, reviewed can impact risk of falls, ?anticholinergic side effects 10/28 --will decrease Cogentin given potential that anticholinergic side effects are worsening his cognition. 10/29 - Will discontinue clozapine at this time - allow patient to clear for a period of time and then consider resuming an antipsychotic medication as he continues to experience auditory hallucinations - Will continue Cogentin, but switch to prn - unlikely to require regularly until/unless an antipsychotic medication is resumed. Agree with concern the medication may increase risk of confusion/falls - Resumed MNPR due to behaviors associated with confusion that are not compatible with and would be disruptive to a roommate at this time 10/30 - holding off starting a different antipsychotic at this time to give time to clear from potential worsening of presentation from clozapine trial, maintained MNPR for now 10/31 plan unchanged for now, consider options to treat psychotic processes that appear ongoing so far while holding for now as potential that medication reaction adding to presentation 11/01 - Continue to hold clozapine - consider alternative antipsychotic agents to target auditory hallucinations which are ongoing - Will allow for a 7.5mg repeat dose of temazepam, as patient continues to report poor sleep. While temazepam may contribute to confusion, poor quality of sleep may be contributing as well. Pt should not receive an additional dose if he is appearing confused or if gait is unstable. - Pt continues to report suicide "it's still an option" if AH continue - he is admitted presently to feeling as though he would seek help before acting on these thoughts - Will need to scheduled discharge planning meeting with the [facility] once patient is appropriate to participate 11/02 - Continue hold on clozapine - will plan to discuss treatment alternatives during treatment team tomorrow morning in order to provide additional time to c lear after clozapine initiation. Pt reports no improvement in symptoms since admission and is agreeable with trial of medications to target his auditory hallucinations - he is specifically requesting "Valium three times a day." - Reviewed history of past antipsychotic medication trials: Zyprexa ("is a joke", restlessness, ineffective); Geodon (ineffective); Abilify (ineffective) - Pt reports desire to return to the [facility] after discharge, but continues to report SI and is not cleared for discharge at this time 11/03 - 11/04 -Patient continues to refuse all antipsychotic medication. Advised him that if he is willing for a trial of any medication in his group, to let us know, and he expressed understanding. For now continue temazepam and benztropine as needed for muscle tension. -Continue to attend participate in groups, work on healthy coping skills and discharge safety plan. (2) Tylenol overdose: 10/14 - Continue management per medical team - Recheck LFTs tomorrow morning. Today, AST 70, ALT 631. 10/15 -Continue to trend down. AST 54, ALT 538. We will reorder LFTs for Saturday. Avoid hepatotoxic agents. 10/16 -Patient reports that he remains suicidal and confirms that his overdose of Tylenol was taken with the intent of causing his own . (3) Hypertension: 10/14 - Home medication includes clonidine 0.1mg qHS - Will continue to monitor blood pressure with daily vitals, consider resuming 10/20 - We have continued daily blood pressures, some of which have been mildly elevated but not consistently - Given increased fatigue and concern for falls related to intermittent unsteadiness with ambulation, will continue to hold clonidine at this time 10/22 -Today, the patient's blood pressure is within normal limits. (4) Benzodiazepine abuse: 10/14 - Historical diagnosis of benzodiazepine abuse - Will not continue home dose of alprazolam - but will offer temazepam 15mg qHS for sleep as it has been effective - Will need to consider the safety of this medication regimen, and may suggest discontinuation of benzodiazepines at discharge given his history - Benzodiazepines are not recommended for the patient if he would be discharged to an unsupervised setting or expected to manage his own medication administration 10/16 -The patient is history of benzodiazepine abuse is noted. That history not withstanding, at seems apparent that the only hypnotic medication that has been consistently effective for this patient has been temazepam, and there is no evidence that he has been misusing this medication in the community prior to admission. -The material risks of temazepam, including but not limited to, risk of a physical habituation, risk of complicated and possibly fatal withdrawal symptoms, risk of accidents, falls and other injuries, as well as risk of worsening depression and clouded consciousness/cognitive impairment were reviewed with the patient, and he responded by saying, "I know. But it is the only thing that works. I really need to sleep, and without it the voices keep me awake all night." 10/22 -The patient's history of benzodiazepine continues to be noted. However, the patient's current condition, we continue to feel that the use of temazepam for sleep is medically necessary and appropriate. 10/25--d/c temazepam as seems to be contributing to AMS? 11/03--temazepam 7.5 mg at bedtime was resumed 10/28/2019, and patient has continued on that dose, which appears to be helping for sleep. We will need to explore options to ensure safety with this medication at discharge; patient will be returning to the [facility], but in the past has refused to allow staff to hold his medication bottles, which would not be advisable given his substance abuse history and overdose risk. (5) Auditory hallucinations: 10/16 -Patient's chief complaint has to do with persistent persecutory auditory hallucinations. He describes the voices as being "electronically generated," and although he tells us that he does not know the source of the electronically generated voices, he says that he has no doubt that they are real and are coming from some entity that is trying to torture and/or kill him. His explanation for the suicide attempt was not that he has been depressed, but, instead, because he feels tortured by the voices and finds that he can no longer tolerate hearing them and no longer tolerate feeling terrorized by them. Patient also explains that he would rather at his own hand than risk being murdered by unknown forces and unknown means. -The patient's condition has been largely treatment resistant to psychiatric medications. With each antipsychotic medication mentioned, the patient's response has been to assert that the specific medicine mentioned has been tried and was not effective, or has been tried and caused worsening symptoms. Today, he asserts that he has taken clozapine in the past, but that it was not effective. He has unable to identify the dose, and does not recall when or where it was prescribed, but says that he believes that he took it for "a month or 2" before it was discontinued as ineffective. Other options for the patient might be a trial of perphenazine or loxapine. For now, the patient has indicated that he would prefer to remain on Geodon 80 mg twice a day. 3/4 - Auditory hallucinations are ongoing. Pt does report that the voices are quieter, but when asked for how long he states "just now, since you asked" - Unclear how reliable patient's reports are on this topic, though it is anticipated ongoing titration of clozapine may be helpful for this 3/5 - Pt more focused on "head buzzing" today, does not mention auditory hallucinations today though this does not mean he is not experiencing them 3/6 -Today, the patient reports that he is troubled both by "a buzzing sound" in both ears, as well as by voices". He tells us that he believes that the voices are being generated by a computer and that the threats that are made through the's "voices" are genuine and represent a mortal danger. He insists that he is being told that he is going to be murdered. -I tried to talk to the patient about the fact that his records, going back many years, speak to the presence of similar perceptual disturbances and similar believes. The patient responds by saying, "they have come close to killing me a number of times. 1 of these days they are going to do it!" -We are discontinuing Geodon today and will be increasing his dose of clozapine, beginning tonight. The new dose of clozapine will be 150 mg at bedtime and 25 mg in the morning. We expect that we will need to continue to titrate. We will also reintroduce clozapine, albeit at a lower dose, should his psychiatric condition worsen. Our concern at this point is excess sedation associated with our current cross titration of Geodon and clozapine. 10/23 - Pt denies significant change from above at this time 10/24 - Ongoing, unchanged with current dose of clozapine - pt would likely require further titration of clozapine to therapeutic range; however, this titration must be balanced with concerns the medication may be causing EPS and parkinsonism - Will reduce dose of clozapine to 150mg qHS and suggest reduced pace of titration 10/28 --no change on current dose of Clozaril, will ask Dr. Dorsey to provide second opinion re: use and dose of Clozaril given course in past week. 10/29 - No change in AH at this time 11/03 -Patient continues to refuse all antipsychotic medication. Advised that if he is willing to trial any medication in this group, to let us know, and he agreed. He often refuses medications for a time before choosing 1. Risk Factors Assessment Male: Yes : Yes Do You Have Access To A Gun?: No Health Problems: No Mental Health Diagnoses: Yes Substance Use Disorders: Yes Previous Attempt: Yes Family History of Suicide: Yes (cousin) Previous Psychiatric Hospitalization: Yes Hopelessness: Yes Protective Factors Assessment Baptism Beliefs: No : No Responsible for Young Children: No Employed: No Stable Relationships: No Supportive Family: No Good Rapport with Provider: No Interval History Identifying Information SCOTT ROBERTO is a 74-year-old M who currently lives in [place] at the [facility]. Pt has a history of schizophrenia and this is his fourth psychiatric admission to our unit in roughly the last 7 months, with one admission to [facility] in that time as well. Pt was admitted on 10/14/19 12:33 on a 201 voluntary commitment after being treated on the medical floor since 10/09/2019 after an intentional Tylenol overdose. 306 conversion hearing was held on 10/16/2019 and his 305 IOC was converted to an inpatient commitment. Chief Complaint "[]". Review of Systems Sleep Information Total Hours of Sleep: 8.25 Sleep Comments: pt appeared to sleep 1.5 hrs during evening shift. pt on q-15 minute checks Meal Information Percent Meal Consumed - Breakfast: 100 Percent Meal Consumed - Lunch: 100 Percent Meal Consumed - Dinner: 100 Subjective Subjective Patient was seen & assessed and interval progress reviewed with nursing and social work. Staff report he continues to report command auditory hallucinations telling him to kill himself, but continues to refuse antidepressant and antipsychotic medication. He does state willingness to continue temazepam, stating no other medications help. He has been less irritable, and has been attending and participating minimally in groups. On my assessment, he reports that he is "the same," with ongoing SI and AH of voices. He still does not want to try any new medications, and reports ongoing jaw and neck stiffness. He states that his tongue is "stuck to the top of my mouth," but denies tongue and jaw movements. No fasciculations on exam when he sticks out his tongue, but appears to be clenching his jaw. He thinks Cogentin and distraction are helpful. He reports anxiety is "pretty high," but denies any specific triggers. He states he wants to return to the [facility] at discharge, but does not yet feel ready to leave the hospital. Physical Exam Psychiatric Orientation: alert and cooperative Apperance: appropriately dressed, appropriately groomed and appeared stated age Eye Contact: good eye contact Motor Behavior: steady gait and station and no abnormal motor movements Speech: normal rate/rhythm/volume of speech Affect: + blunted affect "The same." Thought Process: goal directed thought process Suicidal Thoughts: + reports suicidal thoughts Homicidal Thoughts: denies homicidal thoughts Hallucinations: + auditory hallucinations Command auditory hallucinations to kill himself Cognition: recent memory grossly intact and language grossly intact Insight: + poor insight Judgement: + fair judgement Vital Signs (Past 24 Hours) Last Vital Signs Temp 36.7 C 11/05/19 06:20 Pulse 81 11/05/19 06:21 Resp 18 11/05/19 06:20 BP 132/83 11/05/19 06:21 Pulse Ox 96 10/22/19 23:30 Results & Data ([facility]) Current Inpatient Medications Current Inpatient Medications: Current Inpatient Medications Al Hydrox/Mg Hydrox/Simethicone (Maalox) 30 ml PO Q4H PRN PRN Reason: GI Upset Stop: 11/13/19 13:39 Benztropine Mesylate (Cogentin) 0.5 mg PO DAILY PRN PRN Reason: EPS/restlessness Stop: 11/29/19 11:31 Last Admin: 11/04/19 09:12 Dose: 0.5 mg Documented by: Bismuth Subsalicylate (Kaopectate) 15 ml PO PRN PRN PRN Reason: Loose Stool Stop: 11/13/19 13:39 Docusate Sodium (Colace) 100 mg PO BID MAG Stop: 11/13/19 20:59 Last Admin: 11/05/19 08:28 Dose: 100 mg Documented by: Hydroxyzine HCl (Vistaril) 50 mg PO HSZ PRN PRN Reason: Insomnia Stop: 11/13/19 13:39 Hydroxyzine HCl (Vistaril) 25 mg PO Q4H PRN PRN Reason: Anxiety Stop: 11/13/19 13:39 Magnesium Hydroxide (Milk Of Magnesia) 30 ml PO DAILY PRN PRN Reason: Constipation Stop: 11/13/19 13:39 Magnesium Oxide (Mag-Ox) 400 mg PO DAILY MAG Stop: 11/14/19 08:59 Last Admin: 11/05/19 08:28 Dose: 400 mg Documented by: Polyethylene Glycol (Miralax Powder Packet) 17 gm PO DAILY MAG Stop: 11/14/19 08:59 Last Admin: 11/05/19 08:29 Dose: 17 gm Documented by: Potassium Chloride (Klor-Con M20) 20 meq PO DAILY MAG Stop: 11/14/19 08:59 Last Admin: 11/05/19 08:28 Dose: 20 meq Documented by: Senna/Docusate Sodium (Senokot S) 1 tab PO QAM MAG Stop: 11/14/19 08:59 Last Admin: 11/05/19 08:29 Dose: 1 tab Documented by: Sodium Chloride ([place] Nasal) 1 - 2 sprays NA PRN PRN PRN Reason: Nasal Dryness/Congestion Stop: 11/13/19 13:39 Temazepam (Restoril) 7.5 mg PO HSZ MAG Stop: 11/27/19 21:59 Last Admin: 11/04/19 20:40 Dose: 7.5 mg Documented by: Mental Health & Subst Abuse Tx Psychiatrist Name of Psychiatrist: [facility] - Dr. Alves Psychiatrist's Psychiatric Appointment Comment: [address], [address], [place] [address] Therapist Name of Therapist: none Spray Mixer Name of Spray Mixer: Shruti Mcbride Phone Number for Spray Mixer: [phone] Case Management Appointment Comment: Comes to see you at the [facility] Post Discharge Appointments Primary Care Physician Name Of Family Doctor: [facility] - Dr. Jeff Lopez Primary Care Provider Appointment Comment: [address], [address], [place] [address] Neurologist Name of Neurologist: [facility] - Dr. Caal Neurologist's Date of Appointment with Neurologist: 11/17/19 Time of Appointment with Neurologist: 11:00 a.m. Neurology Appointment Comment: [address] [facility] [address], [place] [address] Contact Information Discharge Discharge Address: [address] [place] [address], [place] [address] Contact Information Comment: [facility] (1) Schizophrenia Schizophrenia type: paranoid schizophrenia Qualified Code(s): F20.0 - Paranoid schizophrenia (2) Hypertension Hypertension type: essential hypertension Qualified Code(s): I10 - Essential (primary) hypertension
[2019-11-05] MEDS: BENZTROPINE MESYLATE 0.5 MG TAB PO PRN (11:16)
[2019-11-05] MEDS: TEMAZEPAM 7.5 MG CAPSULE PO SCH (19:59)
[2019-11-06] MEDS: DOCUSATE SODIUM 100 MG CAP PO SCH ×2 (08:31→20:46)
[2019-11-06] MEDS: POTASSIUM CHLORIDE 20 MEQ TABCR PO SCH (08:32)
[2019-11-06] MEDS: MAGNESIUM OXIDE 400 MG TAB PO SCH (08:32)
[2019-11-06] MEDS: POLYETHYLENE (MIRALAX) 17 GM PACK PO SCH (08:32)
[2019-11-06] MEDS: DOCUSATE SODIUM/SENNA 50/8.6MG TAB PO SCH (08:33)
--- NOTE | 2019-11-06 09:01 | Psychiatric Progress Note ---
Date of Service November 06, 2019 Impression / Recommendations Impression 74-year-old male with chronic schizophrenia who presented 10/08/2019 after he was found unresponsive at the [facility] and admitted to taking a massive, potentially lethal Tylenol overdose in an attempt to end his life. Admitted to the hospitalist service for 6 days, and transferred voluntarily to our unit on 10/14/19. He was on an involuntary 305 outpatient commitment which was converted to inpatient on 10/16/19 (expires 11/21/2019). He has had numerous medication changes: Mirtazapine and Xanax were discontinued as he reported they were ineffective. He was started on temazepam while on the hospitalist service for reports of poor sleep, and this medication appears to be effective, although he continues to report poor sleep. We will need to consider safety concerns at discharge, given his history of benzodiazepine abuse and chronic suicidality/overdose risk, as in the past he has not allowed it [facility] staff to hold his medications and insisted on keeping them in his room.he was initially placed back on ziprasidone, but reported it was ineffective and agreed to a retrial of Clozaril 10/17, however, trial was halted on 10/29 when patient demonstrated increased confusion and EPS. Pt now agreeable with trial of an alternative antipsychotic - but stating he will not return to a medication he has previously tried. Pt agreeable with trial of perphenazine, will plan to titrate as tolerated to target his ongoing AH. He continues to report hearing voices and ongoing suicidal ideation. Inpatient hospitalization remains the least restrictive setting for him at this time. He continues to seem somewhat disorganized and irritable; however, is beginning to participate appropriately in group programming again. (1) Schizophrenia: 10/14 - Continue ziprasidone as initiated on the medical floor - resume 80mg BID dosing with meals - Continue benztropine 0.5mg as needed for reports of stiffness, though it remains unclear if this is truly related to his antipsychotic medication - Mirtazapine was discontinued on the medical floor as patient feels it had been ineffective - Continue temazepam 15mg qHS for sleep - at least while hospitalized in a supervised setting, as patient has a history of benzodiazepine abuse - Will coordinate treatment with patient's outpatient psychiatric supports - Encourage participation in group and recreational programming 10/15 -Continue ziprasidone; reviewed fasting lipid profile and fasting glucose from 02/2019, all values were within normal limits. -Discussed trial of clozapine; patient states that he believes he was on this medication in the past and that it was ineffective. Continue to provide education and encourage retrial, as he has had limited response to multiple other antipsychotics, and it would also help address suicidal thoughts in addition to psychosis. -Involve outpatient cyanide case hardener and coordinate with psychiatrist, Dr. Alves. 10/16 -The plan is to continue ziprasidone 80 mg twice a day. We discussed other treatment options with the patient, and he says that he is not interested in trying the various options suggested. He tends to respond in the affirmative every time he is asked whether he has ever taken a number of specific medications, and replies in each instance "it did not help." He does say, somewhat convincingly, that he took clozapine (dose unspecified and unknown by the patient) a number of years ago for "a month or 2," and that it did not help. Re-challenging the patient with clozapine may be helpful, but at present the patient indicates that he will refuse to take it. -The patient hesitates when asked about loxapine and perphenazine, but then says that he has taken both. Loxapine is not on the hospital formulary. Today, the patient says that he is not interested in trying either of these medications "again." -Today, the patient tells us that he "really does not" want to go to [facility] although he had previously said that he might be interested in doing that. He adds that he does feel safer in a hospital, but feels that he would like to work towards being able to be discharged back to the community at this point. 10/17 --reconsented for retrial of Clozaril following review of CBC and EKG, patient aware to monitor constipation and sialorrhea and notify staff. will dose at hs and titrate by 25 mg nightly, repeat CBC in 1 week. 10/18--titrate Clozaril to 50 mg po qhs, Dr. Campos notified to consider EKG for repeat QTC on med combo as dose is increased, EPS apparently predates start of Clozaril and is not new, he is agreeable to add 0.5 mg Cogentin standing order as trial basis. 10/19 - Continue clozapine titration (now ordered for automatic titration of 25mg each evening), pt to receive 75mg tonight - Pt reports his condition remains unchanged at this time, but is aware that clozapine will need to be titrated to an effective dose range - At this time, patient maintains his desire would be for eventual discharge back to the [facility] - no longer requesting [facility] referral - He remains suicidal and continues to report head buzzing and auditory hallucinations that are overwhelming to him 10/20 - Continue clozapine titration - pt to receive 100mg tonight - Will reduce ziprasidone to 60mg BID given continued titration of clozapine and reported ineffectiveness of the medication - will order an EKG for tomorrow morning, given cross-titration putting patient at increased risk of QTc prolongation. - Ongoing discussions regarding discharge planning - Pt continues to verbalize SI and feels he cannot contract for safety outside of the hospital setting 10/21 - Clozapine to be titrated to 125mg this evening; will continue ziprasidone 60mg BID for now though can consider ongoing taper - EKG ordered this morning, and reviewed QTc 445 - Reports ongoing SI - stating he is "pretty d*mn close" to wanting to - Discharge planning meeting scheduled for tomorrow 10/22 -Discharge remaining has been postponed. -Ziprasidone was held this morning, and the patient's cognition seems to have cleared. He is fully oriented and has not shown evidence of confusion. The patient, himself, notes that his thinking does seem to be more clear than it had been. -We will further titrate clozapine 250 mg at bedtime and 25 mg in the morning. -Because of persistent disturbing auditory hallucinations that the patient reports prevent him from easily inducing and maintaining sleep we will increase his dose of temazepam from 15 mg at bedtime for sleep to a dose of 22.5 mg at bedtime as needed sleep. -Although the patient's cognition seems to have improved, staff recall that during at least 1 previous admission the patient had similar mental status alterations and a urinary tract infection was found to been contributory. For that reason, we have ordered a urinalysis. -The patient has been demonstrating a shuffling gait, and on testing today a substantial degree of cogwheel rigidity was noted. The patient also reports a feeling "jumpy" and "restless." He had been receiving benztropine 0.5 mg twice a day, and while this may have been helpful, it seems not to have been fully effective. We will try trihexyphenidyl 2 mg stat and then 2 mg twice a day, and titrate further as indicated. 10/23 - Titrate clozapine to 25mg qAM and 200mg qHS - continue to hold ziprasidone at this time - Pt continues to reports stiffness and difficulty with ambulation, given that we are continuing to titrate clozapine we will order an additional prn dose of trihexyphenidyl 2mg with consideration to schedule the dose if necessary - UA results reviewed - no indication for current UTI - Will need to continue to discuss appropriate discharge timeline - patient remains suicidal 10/24 - Given concern for confusion, EPS and parkinsonism, morning dose of clozapine was held - Will reduce patient's dose to 150mg qHS and plan for a slower titration. This dosage continues to be subtherapeutic, and patient will require advancement of dose as tolerated - Will discontinue trihexyphenidyl due to concern for urinary retention - will resume benztropine 1mg BID for ongoing stiffness and EPS - Will plan to reduce dose of temazepam to 7.5mg with a one-time repeat if necessary - Pt placed on MNPR due to ambulatory concerns, somewhat disruptive behavior related to his physical complaints, and need for close observation at this time 10/27 --resume low dose Restoril as seems more disorganized with poorer quality sleep, reviewed can impact risk of falls, ?anticholinergic side effects 10/28 --will decrease Cogentin given potential that anticholinergic side effects are worsening his cognition. 10/29 - Will discontinue clozapine at this time - allow patient to clear for a period of time and then consider resuming an antipsychotic medication as he continues to experience auditory hallucinations - Will continue Cogentin, but switch to prn - unlikely to require regularly until/unless an antipsychotic medication is resumed. Agree with concern the medication may increase risk of confusion/falls - Resumed MNPR due to behaviors associated with confusion that are not compatible with and would be disruptive to a roommate at this time 10/30 - holding off starting a different antipsychotic at this time to give time to clear from potential worsening of presentation from clozapine trial, maintained MNPR for now 10/31 plan unchanged for now, consider options to treat psychotic processes that appear ongoing so far while holding for now as potential that medication reaction adding to presentation 11/01 - Continue to hold clozapine - consider alternative antipsychotic agents to target auditory hallucinations which are ongoing - Will allow for a 7.5mg repeat dose of temazepam, as patient continues to report poor sleep. While temazepam may contribute to confusion, poor quality of sleep may be contributing as well. Pt should not receive an additional dose if he is appearing confused or if gait is unstable. - Pt continues to report suicide "it's still an option" if AH continue - he is admitted presently to feeling as though he would seek help before acting on these thoughts - Will need to scheduled discharge planning meeting with the [facility] once patient is appropriate to participate 11/02 - Continue hold on clozapine - will plan to discuss treatment alternatives during treatment team tomorrow morning in order to provide additional time to clear after clozapine initiation. Pt reports no improvement in symptoms since admission and is agreeable with trial of medications to target his auditory hallucinations - he is specifically requesting "Valium three times a day." - Reviewed history of past antipsychotic medication trials: Zyprexa ("is a joke", restlessness, ineffective); Geodon (ineffective); Abilify (ineffective) - Pt reports desire to return to the [facility] after discharge, but continues to report SI and is not cleared for discharge at this time 11/03 - 11/04 -Patient continues to refuse all antipsychotic medication. Advised him that if he is willing for a trial of any medication in his group, to let us know, and he expressed understanding. For now continue temazepam and benztropine as needed for muscle tension. -Continue to attend participate in groups, work on healthy coping skills and discharge safety plan. 11/05 - Pt was cooperative with conversation regarding recommendation for an antipsychotic trial - patient agreeable with perphenazine. Will order 4mg daily to initiated with titration as tolerated. - Pt continues to report muscle stiffness and continues to request benztropine - given risk of true EPS with antipsychotic retrial, will continue to have this medication available as needed - Continues to report auditory hallucinations contributing to ongoing suicidality; reports he would be unsafe to leave the hospital at this time (2) Tylenol overdose: 10/14 - Continue management per medical team - Recheck LFTs tomorrow morning. Today, AST 70, ALT 631. 10/15 -Continue to trend down. AST 54, ALT 538. We will reorder LFTs for Saturday. Avoid hepatotoxic agents. 10/16 -Patient reports that he remains suicidal and confirms that his overdose of Tylenol was taken with the intent of causing his own . (3) Hypertension: 10/14 - Home medication includes clonidine 0.1mg qHS - Will continue to monitor blood pressure with daily vitals, consider resuming 10/20 - We have continued daily blood pressures, some of which have been mildly shantel vated but not consistently - Given increased fatigue and concern for falls related to intermittent unsteadiness with ambulation, will continue to hold clonidine at this time 10/22 -Today, the patient's blood pressure is within normal limits. (4) Benzodiazepine abuse: 10/14 - Historical diagnosis of benzodiazepine abuse - Will not continue home dose of alprazolam - but will offer temazepam 15mg qHS for sleep as it has been effective - Will need to consider the safety of this medication regimen, and may suggest discontinuation of benzodiazepines at discharge given his history - Benzodiazepines are not recommended for the patient if he would be discharged to an unsupervised setting or expected to manage his own medication administration 10/16 -The patient is history of benzodiazepine abuse is noted. That history not withstanding, at seems apparent that the only hypnotic medication that has been consistently effective for this patient has been temazepam, and there is no evidence that he has been misusing this medication in the community prior to admission. -The material risks of temazepam, including but not limited to, risk of a physical habituation, risk of complicated and possibly fatal withdrawal symptoms, risk of accidents, falls and other injuries, as well as risk of worsening depression and clouded consciousness/cognitive impairment were reviewed with the patient, and he responded by saying, "I know. But it is the only thing that works. I really need to sleep, and without it the voices keep me awake all night." 10/22 -The patient's history of benzodiazepine continues to be noted. However, the patient's current condition, we continue to feel that the use of temazepam for sleep is medically necessary and appropriate. 10/25--d/c temazepam as seems to be contributing to AMS? 11/03--temazepam 7.5 mg at bedtime was resumed 10/28/2019, and patient has continued on that dose, which appears to be helping for sleep. We will need to explore options to ensure safety with this medication at discharge; patient will be returning to the [facility], but in the past has refused to allow staff to hold his medication bottles, which would not be advisable given his substance abuse history and overdose risk. 11/05 - We have been able to confirm with the [facility] that they will hold patient's prescribed medications and distribute accordingly. This plan would reduce risk of patient returning to behaviors of benzodiazepine abuse. (5) Auditory hallucinations: 10/16 -Patient's chief complaint has to do with persistent persecutory auditory hallucinations. He describes the voices as being "electronically generated," and although he tells us that he does not know the source of the electronically generated voices, he says that he has no doubt that they are real and are coming from some entity that is trying to torture and/or kill him. His explanation for the suicide attempt was not that he has been depressed, but, instead, because he feels tortured by the voices and finds that he can no longer tolerate hearing them and no longer tolerate feeling terrorized by them. Patient also explains that he would rather at his own hand than risk being murdered by unknown forces and unknown means. -The patient's condition has been largely treatment resistant to psychiatric medications. With each antipsychotic medication mentioned, the patient's response has been to assert that the specific medicine mentioned has been tried and was not effective, or has been tried and caused worsening symptoms. Today, he asserts that he has taken clozapine in the past, but that it was not effective. He has unable to identify the dose, and does not recall when or where it was prescribed, but says that he believes that he took it for "a month or 2" before it was discontinued as ineffective. Other options for the patient might be a trial of perphenazine or loxapine. For now, the patient has indicated that he would prefer to remain on Geodon 80 mg twice a day. 3/4 - Auditory hallucinations are ongoing. Pt does report that the voices are quieter, but when asked for how long he states "just now, since you asked" - Unclear how reliable patient's reports are on this topic, though it is anticipated ongoing titration of clozapine may be helpful for this 3/5 - Pt more focused on "head buzzing" today, does not mention auditory hallucinations today though this does not mean he is not experiencing them 3/6 -Today, the patient reports that he is troubled both by "a buzzing sound" in both ears, as well as by voices". He tells us that he believes that the voices are being generated by a computer and that the threats that are made through the's "voices" are genuine and represent a mortal danger. He insists that he is being told that he is going to be murdered. -I tried to talk to the patient about the fact that his records, going back many years, speak to the presence of similar perceptual disturbances and similar believes. The patient responds by saying, "they have come close to killing me a number of times. 1 of these days they are going to do it!" -We are discontinuing Geodon today and will be increasing his dose of clozapine, beginning tonight. The new dose of clozapine will be 150 mg at bedtime and 25 mg in the morning. We expect that we will need to continue to titrate. We will also reintroduce clozapine, albeit at a lower dose, should his psychiatric condition worsen. Our concern at this point is excess sedation associated with our current cross titration of Geodon and clozapine. 10/23 - Pt denies significant change from above at this time 10/24 - Ongoing, unchanged with current dose of clozapine - pt would likely require further titration of clozapine to therapeutic range; however, this titration must be balanced with concerns the medication may be causing EPS and parkinsonism - Will reduce dose of clozapine to 150mg qHS and suggest reduced pace of titration 10/28 --no change on current dose of Clozaril, will ask Dr. Dorsey to provide second opinion re: use and dose of Clozaril given course in past week. 10/29 - No change in AH at this time 11/03 -Patient continues to refuse all antipsychotic medication. Advised that if he is willing to trial any medication in this group, to let us know, and he agreed. He often refuses medications for a time before choosing 1. 11/05 - Pt now agreeable with a trial of perphenazine to target auditory hallucinations - will start with 4mg daily and titrate as tolerated Risk Factors Assessment Male: Yes : Yes Do You Have Access To A Gun?: No Health Problems: No Mental Health Diagnoses: Yes Substance Use Disorders: Yes Previous Attempt: Yes Family History of Suicide: Yes (cousin) Previous Psychiatric Hospitalization: Yes Hopelessness: Yes Protective Factors Assessment Voodoo Beliefs: No : No Responsible for Young Children: No Employed: No Stable Relationships: No Supportive Family: No Good Rapport with Provider: No Interval History Identifying Information SCOTT ROBERTO is a 74-year-old M who currently lives in [place] at the [facility]. Pt has a history of schizophrenia and this is his fourth psychiatric admission to our unit in roughly the last 7 months, with one admission to [facility] in that time as well. Pt was admitted on 10/14/19 12:33 on a 201 voluntary commitment after being treated on the medical floor since 10/09/2019 after an intentional Tylenol overdose. 306 conversion hearing was held on 10/16/2019 and his 305 IOC was converted to an inpatient commitment. Chief Complaint "Um, ok." Review of Systems Notes Constitutional: ongoing "head noise" Cardiovascular: denied Respiratory: denied Gastrointestinal: denied Neurological: denied Musculoskeletal: reports "muscle stiffness" Psychiatric: denies symptoms other than stated above Total of at least 10 systems reviewed, pertinent positives as above and in HPI. Sleep Information Total Hours of Sleep: 7.25 Sleep Comments: pt appeared to sleep 1.5 hrs during evening shift. pt on q-15 minute checks Meal Information Percent Meal Consumed - Breakfast: 100 Percent Meal Consumed - Lunch: 100 Percent Meal Consumed - Dinner: 100 Subjective Subjective Patient was seen & assessed and interval progress reviewed with treatment team. Staff report the patient has continued to attend group programming, generally sitting on the periphery. Pt had continued to decline antipsychotic medications over the last several days. Pt was seen today to assess progress since admission. Pt states he is "ok" today. He continues to give very brief, and occasionally contradictory reports during conversation. He initially states he was frustrated yesterday that "none of my questions were answered", but when asked what concerns were on his mind he states "nothing, I don't know." Pt sta epi that while he is not willing to trial an antipsychotic he has previously taken, he is agreeable with trial of a new agent. We discussed the possibility to perphenazine including risks, benefits, and potential side effects. Pt verbalized understanding and is agreeable with trial of the medication. Pt continues to request benztropine for "muscle stiffness" during the day. Pt was again educated that this medication is generally only utilized for side effects to antipsychotic medications, which he has not been taking. He was educated on potential for this medication to worsen confusions and verbalized understanding. Given that he is reporting stiffness at baseline, and has experienced EPS with previous antipsychotic trials, we did agree to continue the as needed medication. Pt continues to report auditory hallucinations and suicidality. Pt states that he is "really frustrated I didn't , that it didn't work." He continues to report that he feels safe within the hospital, but states there is a "100% chance" he would attempt to harm himself if he were to leave. He denies other needs or concerns at this time. Physical Exam Psychiatric Orientation: alert and cooperative Apperance: appropriately dressed, appropriately groomed and appeared stated age Eye Contact: good eye contact Motor Behavior: steady gait and station and no abnormal motor movements Speech: normal rate/rhythm/volume of speech (brief responses to questions) Affect: + flat affect Mood: no depressed mood ("Ok") Thought Process: goal directed thought process and + concrete thought process Thought Content: + preoccupation (with AH and head buzzing) and + hopelessness; no delusions (not actively verbalizing delusional thought content) Suicidal Thoughts: + reports suicidal thoughts and + reports suicidal intent Pt states if not in the hospital there would be a "100% chance" he would attempt to end his life. Stating today he wishes his suicide attempt had been successful. Homicidal Thoughts: denies homicidal thoughts Hallucinations: + auditory hallucinations (ongoing auditory hallucinations of voices); no visual hallucinations Cognition: attention grossly intact and language grossly intact Insight: + impaired insight Judgement: + impaired judgement Vital Signs (Past 24 Hours) Last Vital Signs Temp 36.7 C 11/06/19 06:27 Pulse 79 11/06/19 06:27 Resp 18 11/06/19 06:27 BP 131/74 11/06/19 06:27 Pulse Ox 96 10/22/19 23:30 Results & Data ([facility]) Current Inpatient Medications Current Inpatient Medications: Current Inpatient Medications Al Hydrox/Mg Hydrox/Simethicone (Maalox) 30 ml PO Q4H PRN PRN Reason: GI Upset Stop: 11/13/19 13:39 Benztropine Mesylate (Cogentin) 0.5 mg PO DAILY PRN PRN Reason: EPS/restlessness Stop: 11/29/19 11:31 Last Admin: 11/05/19 11:16 Dose: 0.5 mg Documented by: Bismuth Subsalicylate (Kaopectate) 15 ml PO PRN PRN PRN Reason: Loose Stool Stop: 11/13/19 13:39 Docusate Sodium (Colace) 100 mg PO BID MAG Stop: 11/13/19 20:59 Last Admin: 11/06/19 08:31 Dose: 100 mg Documented by: Hydroxyzine HCl (Vistaril) 50 mg PO HSZ PRN PRN Reason: Insomnia Stop: 11/13/19 13:39 Hydroxyzine HCl (Vistaril) 25 mg PO Q4H PRN PRN Reason: Anxiety Stop: 11/13/19 13:39 Magnesium Hydroxide (Milk Of Magnesia) 30 ml PO DAILY PRN PRN Reason: Constipation Stop: 11/13/19 13:39 Magnesium Oxide (Mag-Ox) 400 mg PO DAILY MAG Stop: 11/14/19 08:59 Last Admin: 11/06/19 08:32 Dose: 400 mg Documented by: Polyethylene Glycol (Miralax Powder Packet) 17 gm PO DAILY MAG Stop: 11/14/19 08:59 Last Admin: 11/06/19 08:32 Dose: 17 gm Documented by: Potassium Chloride (Klor-Con M20) 20 meq PO DAILY MAG Stop: 11/14/19 08:59 Last Admin: 11/06/19 08:32 Dose: 20 meq Documented by: Senna/Docusate Sodium (Senokot S) 1 tab PO QAM MAG Stop: 11/14/19 08:59 Last Admin: 11/06/19 08:33 Dose: 1 tab Documented by: Sodium Chloride ([place] Nasal) 1 - 2 sprays NA PRN PRN PRN Reason: Nasal Dryness/Congestion Stop: 11/13/19 13:39 Temazepam (Restoril) 7.5 mg PO HSZ MAG Stop: 11/27/19 21:59 Last Admin: 11/05/19 19:59 Dose: 7.5 mg Documented by: Mental Health & Subst Abuse Tx Psychiatrist Name of Psychiatrist: [facility] - Dr. Alves Psychiatrist's Psychiatric Appointment Comment: [address], [address], [place] [address] Therapist Name of Therapist: none Health Evaluator Name of Health Evaluator: Shruti Mcbride Phone Number for Health Evaluator: [phone] Case Management Appointment Comment: Comes to see you at the [facility] Post Discharge Appointments Primary Care Physician Name Of Family Doctor: [facility] - Dr. Jeff Lopez Primary Care Provider Appointment Comment: [address], [address], [place] [address] Neurologist Name of Neurologist: [facility] Lowell Caal Neurologist's Date of Appointment with Neurologist: 11/17/19 Time of Appointment with Neurologist: 11:00 a.m. Neurology Appointment Comment: [address], [place] [address] Contact Information Discharge Discharge Address: [address] [place] [address], [place] [address] Contact Information Comment: [facility] (1) Schizophrenia Schizophrenia type: paranoid schizophrenia Qualified Code(s): F20.0 - Paranoid schizophrenia (2) Hypertension Hypertension type: essential hypertension Qualified Code(s): I10 - Essential (primary) hypertension
[2019-11-06] MEDS: BENZTROPINE MESYLATE 0.5 MG TAB PO PRN (10:52)
[2019-11-06] MEDS: PERPHENAZINE 2 MG TABLET PO SCH (13:16)
[2019-11-06] MEDS: TEMAZEPAM 7.5 MG CAPSULE PO SCH (20:46)
[2019-11-07] MEDS: POLYETHYLENE (MIRALAX) 17 GM PACK PO SCH (08:11)
[2019-11-07] MEDS: DOCUSATE SODIUM 100 MG CAP PO SCH ×2 (08:12→20:30)
[2019-11-07] MEDS: DOCUSATE SODIUM/SENNA 50/8.6MG TAB PO SCH (08:12)
[2019-11-07] MEDS: MAGNESIUM OXIDE 400 MG TAB PO SCH (08:12)
[2019-11-07] MEDS: POTASSIUM CHLORIDE 20 MEQ TABCR PO SCH (08:12)
[2019-11-07] MEDS: PERPHENAZINE 2 MG TABLET PO SCH (08:13)
[2019-11-07] MEDS: BENZTROPINE MESYLATE 0.5 MG TAB PO PRN (09:10)
--- NOTE | 2019-11-07 11:12 | Psychiatric Progress Note ---
Date of Service November 07, 2019 Impression / Recommendations Impression 74-year-old male with chronic schizophrenia who presented 10/08/2019 after he was found unresponsive at the [facility] and admitted to taking a massive, potentially lethal Tylenol overdose in an attempt to end his life. Admitted to the hospitalist service for 6 days, and transferred voluntarily to our unit on 10/14/19. He was on an involuntary 305 outpatient commitment which was converted to inpatient on 10/16/19 (expires 11/21/2019). He has had numerous medication changes: Mirtazapine and Xanax were discontinued as he reported they were ineffective. He was started on temazepam while on the hospitalist service for r eports of poor sleep, and this medication appears to be effective, although he continues to report poor sleep. We will need to consider safety concerns at discharge, given his history of benzodiazepine abuse and chronic suicidality/overdose risk, as in the past he has not allowed it [facility]R staff to hold his medications and insisted on keeping them in his room.he was initially placed back on ziprasidone, but reported it was ineffective and agreed to a retrial of Clozaril 10/17, however, trial was halted on 10/29 when patient demonstrated increased confusion and EPS. Italics=stay summary, reviewed. Currently trial of trilafon. Reviewed risk factors. remain unchanged. Plan: continue Trilafon trial, hold additional titration as hx of significant EPS when titrated too quickly. Risk Factors Assessment Male: Yes : Yes Do You Have Access To A Gun?: No Health Problems: No Mental Health Diagnoses: Yes Substance Use Disorders: Yes Previous Attempt: Yes Family History of Suicide: Yes (cousin) Previous Psychiatric Hospitalization: Yes Hopelessness: Yes Protective Factors Assessment Quaker Beliefs: No : No Responsible for Young Children: No Employed: No Stable Relationships: No Supportive Family: No Good Rapport with Provider: No Interval History Chief Complaint "I have alot of voices today, nothing helps". Review of Systems Sleep Information Total Hours of Sleep: 7.5 Sleep Comments: pt appeared to sleep 1.5 hrs during evening shift. pt on q-15 minute checks Meal Information Percent Meal Consumed - Breakfast: 95 Percent Meal Consumed - Lunch: 100 Percent Meal Consumed - Dinner: 100 Subjective Subjective Patient was seen & assessed and interval progress reviewed with nursing and social work. Started Trilafon. Denied physical or sleep complaints. Told staff that the hallucinations are voice telling him to kill a non-specific girl. no evidence of restlessness or impulsivity on unit. Simply states that if something doesn't help [place] soon will need to kill himself but denies immediate intent or plan. Vague chronic complaints about jaw again but physically appears improved since last contact with me on 10/28. Physical Exam Psychiatric Orientation: alert Apperance: appropriately groomed Eye Contact: + poor eye contact Motor Behavior: no abnormal motor movements Speech: + abnormal rate/rhythm/volume of speech Affect: + depressed affect Mood: + depressed mood Thought Process: + concrete thought process Thought Content: reality based without delusions Suicidal Thoughts: denies suicidal plan and denies suicidal intent suicidal ideation related to hallucinations Homicidal Thoughts: denies homicidal thoughts Hallucinations: + auditory hallucinations (as above. does not appear to be responding to internal stimuli) Estimated Intelligence: consistent with education level Insight: + poor insight Judgement: + limited judgement Vital Signs (Past 24 Hours) Last Vital Signs Temp 36.9 C 11/07/19 06:39 Pulse 80 11/07/19 06:43 Resp 18 11/07/19 06:39 BP 120/77 11/07/19 06:43 Pulse Ox 96 10/22/19 23:30 Results & Data ([facility]) Current Inpatient Medications Current Inpatient Medications: Current Inpatient Medications Al Hydrox/Mg Hydrox/Simethicone (Maalox) 30 ml PO Q4H PRN PRN Reason: GI Upset Stop: 11/13/19 13:39 Benztropine Mesylate (Cogentin) 0.5 mg PO DAILY PRN PRN Reason: EPS/restlessness Stop: 11/29/19 11:31 Last Admin: 11/07/19 09:10 Dose: 0.5 mg Documented by: Bismuth Subsalicylate (Kaopectate) 15 ml PO PRN PRN PRN Reason: Loose Stool Stop: 11/13/19 13:39 Docusate Sodium (Colace) 100 mg PO BID MAG Stop: 11/13/19 20:59 Last Admin: 11/07/19 08:12 Dose: 100 mg Documented by: Hydroxyzine HCl (Vistaril) 50 mg PO HSZ PRN PRN Reason: Insomnia Stop: 11/13/19 13:39 Hydroxyzine HCl (Vistaril) 25 mg PO Q4H PRN PRN Reason: Anxiety Stop: 11/13/19 13:39 Magnesium Hydroxide (Milk Of Magnesia) 30 ml PO DAILY PRN PRN Reason: Constipation Stop: 11/13/19 13:39 Magnesium Oxide (Mag-Ox) 400 mg PO DAILY MAG Stop: 11/14/19 08:59 Last Admin: 11/07/19 08:12 Dose: 400 mg Documented by: Perphenazine (Trilafon) 4 mg PO DAILY MAG Stop: 12/06/19 10:59 Last Admin: 11/07/19 08:13 Dose: 4 mg Documented by: Polyethylene Glycol (Miralax Powder Packet) 17 gm PO DAILY MAG Stop: 11/14/19 08:59 Last Admin: 11/07/19 08:11 Dose: 17 gm Documented by: Potassium Chloride (Klor-Con M20) 20 meq PO DAILY MAG Stop: 11/14/19 08:59 Last Admin: 11/07/19 08:12 Dose: 20 meq Documented by: Senna/Docusate Sodium (Senokot S) 1 tab PO QAM MAG Stop: 11/14/19 08:59 Last Admin: 11/07/19 08:12 Dose: 1 tab Documented by: Sodium Chloride ([place] Nasal) 1 - 2 sprays NA PRN PRN PRN Reason: Nasal Dryness/Congestion Stop: 11/13/19 13:39 Temazepam (Restoril) 7.5 mg PO HSZ MAG Stop: 11/27/19 21:59 Last Admin: 11/06/19 20:46 Dose: 7.5 mg Documented by: Mental Health & Subst Abuse Tx Psychiatrist Name of Psychiatrist: [facility] - Dr. Alves Psychiatrist's Psychiatric Appointment Comment: [address], [address], [place] [address] Therapist Name of Therapist: none It Risk And Assurance Manager Name of It Risk And Assurance Manager: Shruti Mcbride Phone Number for It Risk And Assurance Manager: [phone] Case Management Appointment Comment: Comes to see you at the [facility] Post Discharge Appointments Primary Care Physician Name Of Family Doctor: [facility] - Dr. Jeff Lopez Primary Care Provider Appointment Comment: [address], [address], [place] [address] Neurologist Name of Neurologist: GRAZYNA Caal Neurologist's Date of Appointment with Neurologist: 11/17/19 Time of Appointment with Neurologist: 11:00 a.m. Neurology Appointment Comment: [address], [place] [address] Contact Information Discharge Discharge Address: [address] [place] [address], [place] [address] Contact Information Comment: JERRELL BRYAN
[2019-11-07] MEDS: TEMAZEPAM 7.5 MG CAPSULE PO SCH (20:29)
[2019-11-08] MEDS: POLYETHYLENE (MIRALAX) 17 GM PACK PO SCH (08:01)
[2019-11-08] MEDS: DOCUSATE SODIUM 100 MG CAP PO SCH ×2 (08:01→20:18)
[2019-11-08] MEDS: POTASSIUM CHLORIDE 20 MEQ TABCR PO SCH (08:02)
[2019-11-08] MEDS: MAGNESIUM OXIDE 400 MG TAB PO SCH (08:02)
[2019-11-08] MEDS: DOCUSATE SODIUM/SENNA 50/8.6MG TAB PO SCH (08:02)
[2019-11-08] MEDS: PERPHENAZINE 2 MG TABLET PO SCH ×2 (08:02→17:14)
--- NOTE | 2019-11-08 09:14 | Psychiatric Progress Note ---
Date of Service November 08, 2019 Impression / Recommendations Impression 74-year-old male with chronic schizophrenia who presented 10/08/2019 after he was found unresponsive at the [facility] and admitted to taking a massive, potentially lethal Tylenol overdose in an attempt to end his life. Admitted to the hospitalist service for 6 days, and transferred voluntarily to our unit on 10/14/19. He was on an involuntary 305 outpatient commitment which was converted to inpatient on 10/16/19 (expires 11/21/2019). He has had numerous medication changes: Mirtazapine and Xanax were discontinued as he reported they were ineffective. He was started on temazepam while on the hospitalist service for r eports of poor sleep, and this medication appears to be effective, although he continues to report poor sleep. We will need to consider safety concerns at discharge, given his history of benzodiazepine abuse and chronic suicidality/overdose risk, as in the past he has not allowed it CRR staff to hold his medications and insisted on keeping them in his room.he was initially placed back on ziprasidone, but reported it was ineffective and agreed to a retrial of Clozaril 10/17, however, trial was halted on 10/29 when patient demonstrated increased confusion and EPS. Italics=stay summary, reviewed. Currently trial of trilafon. Reviewed risk factors. remain unchanged. Plan: continue Trilafon trial, hold additional titration as hx of significant EPS when titrated too quickly. (1) Schizophrenia: Italics=group stay summary, reviewed 10/14 - Continue ziprasidone as initiated on the medical floor - resume 80mg BID dosing with meals - Continue benztropine 0.5mg as needed for reports of stiffness, though it remains unclear if this is truly related to his antipsychotic medication - Mirtazapine was discontinued on the medical floor as patient feels it had been ineffective - Continue temazepam 15mg qHS for sleep - at least while hospitalized in a supervised setting, as patient has a history of benzodiazepine abuse - Will coordinate treatment with patient's outpatient psychiatric supports - Encourage participation in group and recreational programming 10/15 -Continue ziprasidone; reviewed fasting lipid profile and fasting glucose from 02/2019, all values were within normal limits. -Discussed trial of clozapine; patient states that he believes he was on this medication in the past and that it was ineffective. Continue to provide education and encourage retrial, as he has had limited response to multiple other antipsychotics, and it would also help address suicidal thoughts in addition to psychosis. -Involve outpatient adult protective caseworker and coordinate with psychiatrist, Dr. Alves. 10/16 -The plan is to continue ziprasidone 80 mg twice a day. We discussed other treatment options with the patient, and he says that he is not interested in trying the various options suggested. He tends to respond in the affirmative every time he is asked whether he has ever taken a number of specific medications, and replies in each instance "it did not help." He does say, somewhat convincingly, that he took clozapine (dose unspecified and unknown by the patient) a number of years ago for "a month or 2," and that it did not help. Re-challenging the patient with clozapine may be helpful, but at present the patient indicates that he will refuse to take it. -The patient hesitates when asked about loxapine and perphenazine, but then says that he has taken both. Loxapine is not on the hospital formulary. Today, the patient says that he is not interested in trying either of these medications "again." -Today, the patient tells us that he "really does not" want to go to the [facility] ("[facility] although he had previously said that he might be interested in doing that. He adds that he does feel safer in a hospital, but feels that he would like to work towards being able to be discharged back to the community at this point. 10/17 --reconsented for retrial of Clozaril following review of CBC and EKG, patient aware to monitor constipation and sialorrhea and notify staff. will dose at hs and titrate by 25 mg nightly, repeat CBC in 1 week. 10/18--titrate Clozaril to 50 mg po qhs, Dr. Campos notified to consider EKG for repeat QTC on med combo as dose is increased, EPS apparently predates start of Clozaril and is not new, he is agreeable to add 0.5 mg Cogentin standing order as trial basis. 10/19 - Continue clozapine titration (now ordered for automatic titration of 25mg each evening), pt to receive 75mg tonight - Pt reports his condition remains unchanged at this time, but is aware that clozapine will need to be titrated to an effective dose range - At this time, patient maintains his desire would be for eventual discharge back to the [facility] - no longer requesting [facility] referral - He remains suicidal and continues to report head buzzing and auditory hallucinations that are overwhelming to him 10/20 - Continue clozapine titration - pt to receive 100mg tonight - Will reduce ziprasidone to 60mg BID given continued titration of clozapine and reported ineffectiveness of the medication - will order an EKG for tomorrow morning, given cross-titration putting patient at increased risk of QTc prolongation. - Ongoing discussions regarding discharge planning - Pt continues to verbalize SI and feels he cannot contract for safety outside of the hospital setting 10/21 - Clozapine to be titrated to 125mg this evening; will continue ziprasidone 60mg BID for now though can consider ongoing taper - EKG ordered this morning, and reviewed QTc 445 - Reports ongoing SI - stating he is "pretty d*mn close" to wanting to - Discharge planning meeting scheduled for tomorrow 10/22 -Discharge remaining has been postponed. -Ziprasidone was held this morning, and the patient's cognition seems to have cleared. He is fully oriented and has not shown evidence of confusion. The patient, himself, notes that his thinking does seem to be more clear than it had been. -We will further titrate clozapine 250 mg at bedtime and 25 mg in the morning. -Because of persistent disturbing auditory hallucinations that the patient reports prevent him from easily inducing and maintaining sleep we will increase his dose of temazepam from 15 mg at bedtime for sleep to a dose of 22.5 mg at bedtime as needed sleep. -Although the patient's cognition seems to have improved, staff recall that during at least 1 previous admission the patient had similar mental status alterations and a urinary tract infection was found to been contributory. For that reason, we have ordered a urinalysis. -The patient has been demonstrating a shuffling gait, and on testing today a substantial degree of cogwheel rigidity was noted. The patient also reports a feeling "jumpy" and "restless." He had been receiving benztropine 0.5 mg twice a day, and while this may have been helpful, it seems not to have been fully effective. We will try trihexyphenidyl 2 mg stat and then 2 mg twice a day, and titrate further as indicated. 10/23 - Titrate clozapine to 25mg qAM and 200mg qHS - continue to hold ziprasidone at this time - Pt continues to reports stiffness and difficulty with ambulation, given that we are continuing to titrate clozapine we will order an additional prn dose of trihexyphenidyl 2mg with consideration to schedule the dose if necessary - UA results reviewed - no indication for current UTI - Will need to continue to discuss appropriate discharge timeline - patient remains suicidal 10/24 - Given concern for confusion, EPS and parkinsonism, morning dose of clozapine was held - Will reduce patient's dose to 150mg qHS and plan for a slower titration. This dosage continues to be subtherapeutic, and patient will require advancement of dose as tolerated - Will discontinue trihexyphenidyl due to concern for urinary retention - will resume benztropine 1mg BID for ongoing stiffness and EPS - Will plan to reduce dose of temazepam to 7.5mg with a one-time repeat if necessary - Pt placed on MNPR due to ambulatory concerns, somewhat disruptive behavior related to his physical complaints, and need for close observation at this time 10/27 --resume low dose Restoril as seems more disorganized with poorer quality sleep, reviewed can impact risk of falls, ?anticholinergic side effects 10/28 --will decrease Cogentin given potential that anticholinergic side effects are worsening his cognition. Risk Factors Assessment Male: Yes : Yes Do You Have Access To A Gun?: No Health Problems: No Mental Health Diagnoses: Yes Substance Use Disorders: Yes Previous Attempt: Yes Family History of Suicide: Yes (cousin) Previous Psychiatric Hospitalization: Yes Hopelessness: Yes Protective Factors Assessment Caodaism Beliefs: No : No Responsible for Young Children: No Employed: No Stable Relationships: No Supportive Family: No Good Rapport with Provider: No Interval History Chief Complaint "[]". Review of Systems Sleep Information Total Hours of Sleep: 8.25 Sleep Comments: pt appeared to sleep 1.5 hrs during evening shift. pt on q-15 minute checks Meal Information Percent Meal Consumed - Breakfast: 95 Percent Meal Consumed - Lunch: 100 Percent Meal Consumed - Dinner: 100 Subjective Subjective Patient was seen & assessed and interval progress reviewed with [treatment team] [nursing and social work] Physical Exam Vital Signs (Past 24 Hours) Last Vital Signs Temp 36.8 C 11/08/19 06:35 Pulse 78 11/08/19 06:38 Resp 18 11/08/19 06:35 BP 122/73 11/08/19 06:38 Pulse Ox 96 10/22/19 23:30 Results & Data ([facility]) Current Inpatient Medications Current Inpatient Medications: Current Inpatient Medications Al Hydrox/Mg Hydrox/Simethicone (Maalox) 30 ml PO Q4H PRN PRN Reason: GI Upset Stop: 11/13/19 13:39 Benztropine Mesylate (Cogentin) 0.5 mg PO DAILY PRN PRN Reason: EPS/restlessness Stop: 11/29/19 11:31 Last Admin: 11/07/19 09:10 Dose: 0.5 mg Documented by: Bismuth Subsalicylate (Kaopectate) 15 ml PO PRN PRN PRN Reason: Loose Stool Stop: 11/13/19 13:39 Docusate Sodium (Colace) 100 mg PO BID [facility] Stop: 11/13/19 20:59 Last Admin: 11/08/19 08:01 Dose: 100 mg Documented by: Hydroxyzine HCl (Vistaril) 50 mg PO HSZ PRN PRN Reason: Insomnia Stop: 11/13/19 13:39 Hydroxyzine HCl (Vistaril) 25 mg PO Q4H PRN PRN Reason: Anxiety Stop: 11/13/19 13:39 Magnesium Hydroxide (Milk Of Magnesia) 30 ml PO DAILY PRN PRN Reason: Constipation Stop: 11/13/19 13:39 Magnesium Oxide (Mag-Ox) 400 mg PO DAILY [facility] Stop: 11/14/19 08:59 Last Admin: 11/08/19 08:02 Dose: 400 mg Documented by: Perphenazine (Trilafon) 4 mg PO DAILY [facility] Stop: 12/06/19 10:59 Last Admin: 11/08/19 08:02 Dose: 4 mg Documented by: Polyethylene Glycol (Miralax Powder Packet) 17 gm PO DAILY [facility] Stop: 11/14/19 08:59 Last Admin: 11/08/19 08:01 Dose: 17 gm Documented by: Potassium Chloride (Klor-Con M20) 20 meq PO DAILY [facility] Stop: 11/14/19 08:59 Last Admin: 11/08/19 08:02 Dose: 20 meq Documented by: Senna/Docusate Sodium (Senokot S) 1 tab PO QAM MAG Stop: 11/14/19 08:59 Last Admin: 11/08/19 08:02 Dose: 1 tab Documented by: Sodium Chloride ([place] Nasal) 1 - 2 sprays NA PRN PRN PRN Reason: Nasal Dryness/Congestion Stop: 11/13/19 13:39 Temazepam (Restoril) 7.5 mg PO HSZ MAG Stop: 11/27/19 21:59 Last Admin: 11/07/19 20:29 Dose: 7.5 mg Documented by: Mental Health & Subst Abuse Tx Psychiatrist Name of Psychiatrist: [facility] - Dr. Alves Psychiatrist's Psychiatric Appointment Comment: [address], [address], [place] [id number] Therapist Name of Therapist: none Cream Gatherer Name of Cream Gatherer: Shruti Mcbride Phone Number for Cream Gatherer: [phone] Case Management Appointment Comment: Comes to see you at the [facility] Post Discharge Appointments Primary Care Physician Name Of Family Doctor: [facility] - Dr. Jeff Lopez Primary Care Provider Appointment Comment: [address], [address], [place] [address] Neurologist Name of Neurologist: [facility] [place] Dr. Caal Neurologist's Date of Appointment with Neurologist: 11/17/19 Time of Appointment with Neurologist: 11:00 a.m. Neurology Appointment Comment: [address], [place] [address] Contact Information Discharge Discharge Address: [address] [place] [address], [place] [address] Contact Information Comment: [facility] (1) Schizophrenia Schizophrenia type: paranoid schizophrenia Qualified Code(s): F20.0 - Paranoid schizophrenia
[2019-11-08] MEDS: BENZTROPINE MESYLATE 0.5 MG TAB PO PRN (10:32)
--- NOTE | 2019-11-08 11:30 | Psychiatric Progress Note ---
Date of Service November 08, 2019 Impression / Recommendations Impression 74 yo male with schizophrenia admit s/p Tylenol OD, poor tolerability of multiple antipsychotics Plan: Titrate Trilafon to 4 mg BID (2nd dose with evening meal) Risk Factors Assessment Male: Yes : Yes Do You Have Access To A Gun?: No Health Problems: No Mental Health Diagnoses: Yes Substance Use Disorders: Yes Previous Attempt: Yes Family History of Suicide: Yes (cousin) Previous Psychiatric Hospitalization: Yes Hopelessness: Yes Protective Factors Assessment Zoroastrian Beliefs: No : No Responsible for Young Children: No Employed: No Stable Relationships: No Supportive Family: No Good Rapport with Provider: No Interval History Chief Complaint "they tell me it's electronic and medication won't help". Review of Systems Sleep Information Total Hours of Sleep: 8.25 Sleep Comments: pt appeared to sleep 1.5 hrs during evening shift. pt on q-15 minute checks Meal Information Percent Meal Consumed - Breakfast: 100 Percent Meal Consumed - Lunch: 100 Percent Meal Consumed - Dinner: 100 Subjective Subjective Patient was seen & assessed and interval progress reviewed with nursing and social work. He denies physical complaints other than poor quality sleep though staff report good sleep. Has been out of room, walking with steady gait. He continued to report ang[place] as constant yesterday. Denies jaw pain. Physical Exam Psychiatric Orientation: alert Apperance: appropriately groomed Eye Contact: good eye contact Motor Behavior: steady gait and station Speech: normal rate/rhythm/volume of speech Affect: + depressed affect Mood: + depressed mood Thought Process: linear/logical thought process Thought Content: + delusions (re: source of buzzing in his head) passive SI, "If I don't improve" Homicidal Thoughts: denies homicidal thoughts Hallucinations: + auditory hallucinations; no visual hallucinations Insight: + poor insight Judgement: + poor judgement Vital Signs (Past 24 Hours) Last Vital Signs Temp 36.8 C 11/08/19 06:35 Pulse 78 11/08/19 06:38 Resp 18 11/08/19 06:35 BP 122/73 11/08/19 06:38 Pulse Ox 96 10/22/19 23:30 Results & Data (U) Current Inpatient Medications Current Inpatient Medications: Current Inpatient Medications Al Hydrox/Mg Hydrox/Simethicone (Maalox) 30 ml PO Q4H PRN PRN Reason: GI Upset Stop: 11/13/19 13:39 Benztropine Mesylate (Cogentin) 0.5 mg PO DAILY PRN PRN Reason: EPS/restlessness Stop: 11/29/19 11:31 Last Admin: 11/08/19 10:32 Dose: 0.5 mg Documented by: Bismuth Subsalicylate (Kaopectate) 15 ml PO PRN PRN PRN Reason: Loose Stool Stop: 11/13/19 13:39 Docusate Sodium (Colace) 100 mg PO BID MAG Stop: 11/13/19 20:59 Last Admin: 11/08/19 08:01 Dose: 100 mg Documented by: Hydroxyzine HCl (Vistaril) 50 mg PO HSZ PRN PRN Reason: Insomnia Stop: 11/13/19 13:39 Hydroxyzine HCl (Vistaril) 25 mg PO Q4H PRN PRN Reason: Anxiety Stop: 11/13/19 13:39 Magnesium Hydroxide (Milk Of Magnesia) 30 ml PO DAILY PRN PRN Reason: Constipation Stop: 11/13/19 13:39 Magnesium Oxide (Mag-Ox) 400 mg PO DAILY [facility] Stop: 11/14/19 08:59 Last Admin: 11/08/19 08:02 Dose: 400 mg Documented by: Perphenazine (Trilafon) 4 mg PO BID17 [facility] Stop: 12/08/19 16:59 Polyethylene Glycol (Miralax Powder Packet) 17 gm PO DAILY [facility] Stop: 11/14/19 08:59 Last Admin: 11/08/19 08:01 Dose: 17 gm Documented by: Potassium Chloride (Klor-Con M20) 20 meq PO DAILY [facility] Stop: 11/14/19 08:59 Last Admin: 11/08/19 08:02 Dose: 20 meq Documented by: Senna/Docusate Sodium (Senokot S) 1 tab PO QAM [facility] Stop: 11/14/19 08:59 Last Admin: 11/08/19 08:02 Dose: 1 tab Documented by: Sodium Chloride ([place] Nasal) 1 - 2 sprays NA PRN PRN PRN Reason: Nasal Dryness/Congestion Stop: 11/13/19 13:39 Temazepam (Restoril) 7.5 mg PO HSZ [facility] Stop: 11/27/19 21:59 Last Admin: 11/07/19 20:29 Dose: 7.5 mg Documented by: Mental Health & Subst Abuse Tx Psychiatrist Name of Psychiatrist: [facility] - Dr. Alves Psychiatrist's Psychiatric Appointment Comment: [address], [address], [place] [address] Therapist Name of Therapist: none Car Unloader Helper Name of Car Unloader Helper: Shruti Mcbride Phone Number for Car Unloader Helper: [phone] Case Management Appointment Comment: Comes to see you at the [facility] Post Discharge Appointments Primary Care Physician Name Of Family Doctor: [facility] - Dr. Jeff Lopez Primary Care Provider Appointment Comment: [address], [address], [place] [address] Neurologist Name of Neurologist: GRAZYNA - Dr. Caal Neurologist's Date of Appointment with Neurologist: 11/17/19 Time of Appointment with Neurologist: 11:00 a.m. Neurology Appointment Comment: [address] [facility] [address], [place] [address] Contact Information Discharge Discharge Address: [address] [place] [address], [place] [address] Contact Information Comment: [facility]
[2019-11-08] MEDS: TEMAZEPAM 7.5 MG CAPSULE PO SCH (20:18)
[2019-11-09] MEDS: POLYETHYLENE (MIRALAX) 17 GM PACK PO SCH (08:31)
[2019-11-09] MEDS: MAGNESIUM OXIDE 400 MG TAB PO SCH (08:31)
[2019-11-09] MEDS: DOCUSATE SODIUM 100 MG CAP PO SCH ×2 (08:31→20:44)
[2019-11-09] MEDS: POTASSIUM CHLORIDE 20 MEQ TABCR PO SCH (08:31)
[2019-11-09] MEDS: PERPHENAZINE 2 MG TABLET PO SCH ×2 (08:31→17:08)
[2019-11-09] MEDS: DOCUSATE SODIUM/SENNA 50/8.6MG TAB PO SCH (08:31)
--- NOTE | 2019-11-09 09:10 | Psychiatric Progress Note ---
Date of Service November 09, 2019 Impression / Recommendations Impression 74 yo male with schizophrenia admit s/p Tylenol OD, poor tolerability of multiple antipsychotics Plan: Titrate Trilafon to 4 mg BID (2nd dose with evening meal) (1) Schizophrenia: Italics=group stay summary, reviewed 10/14 - Continue ziprasidone as initiated on the medical floor - resume 80mg BID dosing with meals - Continue benztropine 0.5mg as needed for reports of stiffness, though it remains unclear if this is truly related to his antipsychotic medication - Mirtazapine was discontinued on the medical floor as patient feels it had been ineffective - Continue temazepam 15mg qHS for sleep - at least while hospitalized in a supervised setting, as patient has a history of benzodiazepine abuse - Will coordinate treatment with patient's outpatient psychiatric supports - Encourage participation in group and recreational programming 10/15 -Continue ziprasidone; reviewed fasting lipid profile and fasting glucose from 02/2019, all values were within normal limits. -Discussed trial of clozapine; patient states that he believes he was on this medication in the past and that it was ineffective. Continue to provide education and encourage retrial, as he has had limited response to multiple other antipsychotics, and it would also help address suicidal thoughts in addition to psychosis. -Involve outpatient manager of case management and coordinate with psychiatrist, Dr. Alves. 10/16 -The plan is to continue ziprasidone 80 mg twice a day. We discussed other treatment options with the patient, and he says that he is not interested in trying the various options suggested. He tends to respond in the affirmative every time he is asked whether he has ever taken a number of specific medications, and replies in each instance "it did not help." He does say, somewhat convincingly, that he took clozapine (dose unspecified and unknown by the patient) a number of years ago for "a month or 2," and that it did not help. Re-challenging the patient with clozapine may be helpful, but at present the patient indicates that he will refuse to take it. -The patient hesitates when asked about loxapine and perphenazine, but then says that he has taken both. Loxapine is not on the hospital formulary. Today, the patient says that he is not interested in trying either of these medications "again." -Today, the patient tells us that he "really does not" want to go to the [place] hospital ("[place]"), although he had previously said that he might be interested in doing that. He adds that he does feel safer in a hospital, but feels that he would like to work towards being able to be discharged back to the community at this point. 10/17 --reconsented for retrial of Clozaril following review of CBC and EKG, patient aware to monitor constipation and sialorrhea and notify staff. will dose at hs and titrate by 25 mg nightly, repeat CBC in 1 week. 10/18--titrate Clozaril to 50 mg po qhs, Dr. Campos notified to consider EKG for repeat QTC on med combo as dose is increased, EPS apparently predates start of Clozaril and is not new, he is agreeable to add 0.5 mg Cogentin standing order as trial basis. 10/19 - Continue clozapine titration (now ordered for automatic titration of 25mg each evening), pt to receive 75mg tonight - Pt reports his condition remains unchanged at this time, but is aware that clozapine will need to be titrated to an effective dose range - At this time, patient maintains his desire would be for eventual discharge back to the [facility] - no longer requesting [place] referral - He remains suicidal and continues to report head buzzing and auditory hallucinations that are overwhelming to him 10/20 - Continue clozapine titration - pt to receive 100mg tonight - Will reduce ziprasidone to 60mg BID given continued titration of clozapine and reported ineffectiveness of the medication - will order an EKG for tomorrow morning, given cross-titration putting patient at increased risk of QTc prolongation. - Ongoing discussions regarding discharge planning - Pt continues to verbalize SI and feels he cannot contract for safety outside of the hospital setting 10/21 - Clozapine to be titrated to 125mg this evening; will continue ziprasidone 60mg BID for now though can consider ongoing taper - EKG ordered this morning, and reviewed QTc 445 - Reports ongoing SI - stating he is "pretty d*mn close" to wanting to - Discharge planning meeting scheduled for tomorrow 10/22 -Discharge remaining has been postponed. -Ziprasidone was held this morning, and the patient's cognition seems to have cleared. He is fully oriented and has not shown evidence of confusion. The patient, himself, notes that his thinking does seem to be more clear than it had been. -We will further titrate clozapine 250 mg at bedtime and 25 mg in the morning. -Because of persistent disturbing auditory hallucinations that the patient reports prevent him from easily inducing and maintaining sleep we will increase his dose of temazepam from 15 mg at bedtime for sleep to a dose of 22.5 mg at bedtime as needed sleep. -Although the patient's cognition seems to have improved, staff recall that during at least 1 previous admission the patient had similar mental status alterations and a urinary tract infection was found to been contributory. For that reason, we have ordered a urinalysis. -The patient has been demonstrating a shuffling gait, and on testing today a substantial degree of cogwheel rigidity was noted. The patient also reports a feeling "jumpy" and "restless." He had been receiving benztropine 0.5 mg twice a day, and while this may have been helpful, it seems not to have been fully effective. We will try trihexyphenidyl 2 mg stat and then 2 mg twice a day, and titrate further as indicated. 10/23 - Titrate clozapine to 25mg qAM and 200mg qHS - continue to hold ziprasidone at this time - Pt continues to reports stiffness and difficulty with ambulation, given that we are continuing to titrate clozapine we will order an additional prn dose of trihexyphenidyl 2mg with consideration to schedule the dose if necessary - UA results reviewed - no indication for current UTI - Will need to continue to discuss appropriate discharge timeline - patient remains suicidal 10/24 - Given concern for confusion, EPS and parkinsonism, morning dose of clozapine was held - Will reduce patient's dose to 150mg qHS and plan for a slower titration. This dosage continues to be subtherapeutic, and patient will require advancement of dose as tolerated - Will discontinue trihexyphenidyl due to concern for urinary retention - will resume benztropine 1mg BID for ongoing stiffness and EPS - Will plan to reduce dose of temazepam to 7.5mg with a one-time repeat if necessary - Pt placed on MNPR due to ambulatory concerns, somewhat disruptive behavior related to his physical complaints, and need for close observation at this time 10/27 --resume low dose Restoril as seems more disorganized with poorer quality sleep, reviewed can impact risk of falls, ?anticholinergic side effects 10/28 --will decrease Cogentin given potential that anticholinergic side effects are worsening his cognition. Risk Factors Assessment Male: Yes : Yes Do You Have Access To A Gun?: No Health Problems: No Mental Health Diagnoses: Yes Substance Use Disorders: Yes Previous Attempt: Yes Family History of Suicide: Yes (cousin) Previous Psychiatric Hospitalization: Yes Hopelessness: Yes Protective Factors Assessment Catholic Beliefs: No : No Responsible for Young Children: No Employed: No Stable Relationships: No Supportive Family: No Good Rapport with Provider: No Interval History Chief Complaint "[]". Review of Systems Sleep Information Total Hours of Sleep: 9 Sleep Comments: pt on q-15 minute checks Meal Information Percent Meal Consumed - Breakfast: 100 Percent Meal Consumed - Lunch: 100 Percent Meal Consumed - Dinner: 100 Subjective Subjective Patient was seen & assessed and interval progress reviewed with [treatment team] [nursing and social work] Physical Exam Vital Signs (Past 24 Hours) Last Vital Signs Temp 36.8 C 11/09/19 06:49 Pulse 78 11/09/19 06:50 Resp 18 11/09/19 06:49 BP 117/71 11/09/19 06:50 Pulse Ox 96 10/22/19 23:30 Results & Data ([facility]) Current Inpatient Medications Current Inpatient Medications: Current Inpatient Medications Al Hydrox/Mg Hydrox/Simethicone (Maalox) 30 ml PO Q4H PRN PRN Reason: GI Upset Stop: 11/13/19 13:39 Benztropine Mesylate (Cogentin) 0.5 mg PO DAILY PRN PRN Reason: EPS/restlessness Stop: 11/29/19 11:31 Last Admin: 11/08/19 10:32 Dose: 0.5 mg Documented by: Bismuth Subsalicylate (Kaopectate) 15 ml PO PRN PRN PRN Reason: Loose Stool Stop: 11/13/19 13:39 Docusate Sodium (Colace) 100 mg PO BID [facility] Stop: 11/13/19 20:59 Last Admin: 11/09/19 08:31 Dose: 100 mg Documented by: Hydroxyzine HCl (Vistaril) 50 mg PO HSZ PRN PRN Reason: Insomnia Stop: 11/13/19 13:39 Hydroxyzine HCl (Vistaril) 25 mg PO Q4H PRN PRN Reason: Anxiety Stop: 11/13/19 13:39 Magnesium Hydroxide (Milk Of Magnesia) 30 ml PO DAILY PRN PRN Reason: Constipation Stop: 11/13/19 13:39 Magnesium Oxide (Mag-Ox) 400 mg PO DAILY [facility] Stop: 11/14/19 08:59 Last Admin: 11/09/19 08:31 Dose: 400 mg Documented by: Perphenazine (Trilafon) 4 mg PO BID17 [facility] Stop: 12/08/19 16:59 Last Admin: 11/09/19 08:31 Dose: 4 mg Documented by: Polyethylene Glycol (Miralax Powder Packet) 17 gm PO DAILY [facility] Stop: 11/14/19 08:59 Last Admin: 11/09/19 08:31 Dose: 17 gm Documented by: Potassium Chloride (Klor-Con M20) 20 meq PO DAILY [facility] Stop: 11/14/19 08:59 Last Admin: 11/09/19 08:31 Dose: 20 meq Documented by: Senna/Docusate Sodium (Senokot S) 1 tab PO QAM [facility] Stop: 11/14/19 08:59 Last Admin: 11/09/19 08:31 Dose: 1 tab Documented by: Sodium Chloride ([place] Nasal) 1 - 2 sprays NA PRN PRN PRN Reason: Nasal Dryness/Congestion Stop: 11/13/19 13:39 Temazepam (Restoril) 7.5 mg PO HSZ [facility] Stop: 11/27/19 21:59 Last Admin: 11/08/19 20:18 Dose: 7.5 mg Documented by: Mental Health & Subst Abuse Tx Psychiatrist Name of Psychiatrist: [facility] - Dr. Alves Psychiatrist's Psychiatric Appointment Comment: [address], [address], [place] [address] Therapist Name of Therapist: none Screening Technician Name of Screening Technician: Shruti Mcbride Phone Number for Screening Technician: [phone] Case Management Appointment Comment: Comes to see you at the [facility] Post Discharge Appointments Primary Care Physician Name Of Family Doctor: [facility] - Dr. Jeff Lopez Primary Care Provider Appointment Comment: [address], [address], [place] [address] Neurologist Name of Neurologist: GRAZYNA Caal Neurologist's Date of Appointment with Neurologist: 11/17/19 Time of Appointment with Neurologist: 11:00 a.m. Neurology Appointment Comment: [address] [facility] [address], [place] [address] Contact Information Discharge Discharge Address: [address] [place] [address], [place] [address] Contact Information Comment: JERRELL BRYAN (1) Schizophrenia Schizophrenia type: paranoid schizophrenia Qualified Code(s): F20.0 - Paranoid schizophrenia
--- NOTE | 2019-11-09 10:06 | Psychiatric Progress Note ---
Date of Service November 09, 2019 Impression / Recommendations Impression 74-year-old male with chronic schizophrenia who presented 10/08/2019 after he was found unresponsive at the [facility] and admitted to taking a massive, potentially lethal Tylenol overdose in an attempt to end his life. Admitted to the hospitalist service for 6 days, and transferred voluntarily to our unit on 10/14/19. He was on an involuntary 305 outpatient commitment which was converted to inpatient on 10/16/19 (expires 11/21/2019). He has had numerous medication changes: Mirtazapine and Xanax were discontinued as he reported they were ineffective. He was started on temazepam while on the hospitalist service for reports of poor sleep, and this medication appears to be effective, although he continues to report poor sleep. We will need to consider safety concerns at discharge, given his history of benzodiazepine abuse and chronic suicidality/overdose risk, as in the past he has not allowed it [facility] staff to hold his medications and insisted on keeping them in his room.he was initially placed back on ziprasidone, but reported it was ineffective and agreed to a retrial of Clozaril 10/17, however, trial was halted on 10/29 when patient demonstrated increased confusion and EPS. Pt now agreeable with trial of an alternative antipsychotic - but stating he will not return to a medication he has previously tried. Pt agreeable with trial of perphenazine, will plan to titrate as tolerated to target his ongoing AH. He continues to report hearing voices and ongoing suicidal ideation. Inpatient hospitalization remains the least restrictive setting for him at this time. He continues to display a flat affect and at times seems somewhat confused; however, has been participating more appropriately in group programming again. (1) Schizophrenia: 10/14 - Continue ziprasidone as initiated on the medical floor - resume 80mg BID dosing with meals - Continue benztropine 0.5mg as needed for reports of stiffness, though it remains unclear if this is truly related to his antipsychotic medication - Mirtazapine was discontinued on the medical floor as patient feels it had been ineffective - Continue temazepam 15mg qHS for sleep - at least while hospitalized in a supervised setting, as patient has a history of benzodiazepine abuse - Will coordinate treatment with patient's outpatient psychiatric supports - Encourage participation in group and recreational programming 10/15 -Continue ziprasidone; reviewed fasting lipid profile and fasting glucose from 02/2019, all values were within normal limits. -Discussed trial of clozapine; patient states that he believes he was on this medication in the past and that it was ineffective. Continue to provide education and encourage retrial, as he has had limited response to multiple other antipsychotics, and it would also help address suicidal thoughts in addition to psychosis. -Involve outpatient telehealth case manager and coordinate with psychiatrist, Dr. Alves. 10/16 -The plan is to continue ziprasidone 80 mg twice a day. We discussed other treatment options with the patient, and he says that he is not interested in trying the various options suggested. He tends to respond in the affirmative every time he is asked whether he has ever taken a number of specific medications, and replies in each instance "it did not help." He does say, somewhat convincingly, that he took clozapine (dose unspecified and unknown by the patient) a number of years ago for "a month or 2," and that it did not help. Re-challenging the patient with clozapine may be helpful, but at present the patient indicates that he will refuse to take it. -The patient hesitates when asked about loxapine and perphenazine, but then says that he has taken both. Loxapine is not on the hospital formulary. Today, the patient says that he is not interested in trying either of these medications "again." -Today, the patient tells us that he "really does not" want to go to the [facility] ("[facility]"), although he had previously said that he might be interested in doing that. He adds that he does feel safer in a hospital, but feels that he would like to work towards being able to be discharged back to the community at this point. 10/17 --reconsented for retrial of Clozaril following review of CBC and EKG, patient aware to monitor constipation and sialorrhea and notify staff. will dose at hs and titrate by 25 mg nightly, repeat CBC in 1 week. 10/18--titrate Clozaril to 50 mg po qhs, Dr. Campos notified to consider EKG for repeat QTC on med combo as dose is increased, EPS apparently predates start of Clozaril and is not new, he is agreeable to add 0.5 mg Cogentin standing order as trial basis. 10/19 - Continue clozapine titration (now ordered for automatic titration of 25mg each evening), pt to receive 75mg tonight - Pt reports his condition remains unchanged at this time, but is aware that clozapine will need to be titrated to an effective dose range - At this time, patient maintains his desire would be for eventual discharge back to the [facility] - no longer requesting [facility] referral - He remains suicidal and continues to report head buzzing and auditory hallucinations that are overwhelming to him 10/20 - Continue clozapine titration - pt to receive 100mg tonight - Will reduce ziprasidone to 60mg BID given continued titration of clozapine and reported ineffectiveness of the medication - will order an EKG for tomorrow morning, given cross-titration putting patient at increased risk of QTc prolongation. - Ongoing discussions regarding discharge planning - Pt continues to verbalize SI and feels he cannot contract for safety outside of the hospital setting 10/21 - Clozapine to be titrated to 125mg this evening; will continue ziprasidone 60mg BID for now though can consider ongoing taper - EKG ordered this morning, and reviewed QTc 445 - Reports ongoing SI - stating he is "pretty d*mn close" to wanting to - Discharge planning meeting scheduled for tomorrow 10/22 -Discharge remaining has been postponed. -Ziprasidone was held this morning, and the patient's cognition seems to have cleared. He is fully oriented and has not shown evidence of confusion. The patient, himself, notes that his thinking does seem to be more clear than it had been. -We will further titrate clozapine 250 mg at bedtime and 25 mg in the morning. -Because of persistent disturbing auditory hallucinations that the patient reports prevent him from easily inducing and maintaining sleep we will increase his dose of temazepam from 15 mg at bedtime for sleep to a dose of 22.5 mg at bedtime as needed sleep. -Although the patient's cognition seems to have improved, staff recall that during at least 1 previous admission the patient had similar mental status alterations and a urinary tract infection was found to been contributory. For that reason, we have ordered a urinalysis. -The patient has been demonstrating a shuffling gait, and on testing today a substantial degree of cogwheel rigidity was noted. The patient also reports a feeling "jumpy" and "restless." He had been receiving benztropine 0.5 mg twice a day, and while this may have been helpful, it seems not to have been fully effective. We will try trihexyphenidyl 2 mg stat and then 2 mg twice a day, and titrate further as indicated. 10/23 - Titrate clozapine to 25mg qAM and 200mg qHS - continue to hold ziprasidone at this time - Pt continues to reports stiffness and difficulty with ambulation, given that we are continuing to titrate clozapine we will order an additional prn dose of trihexyphenidyl 2mg with consideration to schedule the dose if necessary - UA results reviewed - no indication for current UTI - Will need to continue to discuss appropriate discharge timeline - patient remains suicidal 10/24 - Given concern for confusion, EPS and parkinsonism, morning dose of clozapine was held - Will reduce patient's dose to 150mg qHS and plan for a slower titration. This dosage continues to be subtherapeutic, and patient will require advancement of dose as tolerated - Will discontinue trihexyphenidyl due to concern for urinary retention - will resume benztropine 1mg BID for ongoing stiffness and EPS - Will plan to reduce dose of temazepam to 7.5mg with a one-time repeat if necessary - Pt placed on MNPR due to ambulatory concerns, somewhat disruptive behavior related to his physical complaints, and need for close observation at this time 10/27 --resume low dose Restoril as seems more disorganized with poorer quality sleep, reviewed can impact risk of falls, ?anticholinergic side effects 10/28 --will decrease Cogentin given potential that anticholinergic side effects are worsening his cognition. 10/29 - Will discontinue clozapine at this time - allow patient to clear for a period of time and then consider resuming an antipsychotic medication as he continues to experience auditory hallucinations - Will continue Cogentin, but switch to prn - unlikely to require regularly until/unless an antipsychotic medication is resumed. Agree with concern the medication may increase risk of confusion/falls - Resumed MNPR due to behaviors associated with confusion that are not compatible with and would be disruptive to a roommate at this time 10/30 - holding off starting a different antipsychotic at this time to give time to clear from potential worsening of presentation from clozapine trial, maintained MNPR for now 10/31 plan unchanged for now, consider options to treat psychotic processes that appear ongoing so far while holding for now as potential that medication reaction adding to presentation 11/01 - Continue to hold clozapine - consider alternative antipsychotic agents to target auditory hallucinations which are ongoing - Will allow for a 7.5mg repeat dose of temazepam, as patient continues to report poor sleep. While temazepam may contribute to confusion, poor quality of sleep may be contributing as well. Pt should not receive an additional dose if he is appearing confused or if gait is unstable. - Pt continues to report suicide "it's still an option" if AH continue - he is admitted presently to feeling as though he would seek help before acting on these thoughts - Will need to scheduled discharge planning meeting with the [facility] once patient is appropriate to participate 11/02 - Continue hold on clozapine - will plan to discuss treatment alternatives during treatment team tomorrow morning in order to provide additional time to clear after clozapine initiation. Pt reports no improvement in symptoms since admission and is agreeable with trial of medications to target his auditory hallucinations - he is specifically requesting "Valium three times a day." - Reviewed history of past antipsychotic medication trials: Zyprexa ("is a joke", restlessness, ineffective); Geodon (ineffective); Abilify (ineffective) - Pt reports desire to return to the [facility] after discharge, but continues to report SI and is not cleared for discharge at this time 11/03 - 11/04 -Patient continues to refuse all antipsychotic medication. Advised him that if he is willing for a trial of any medication in his group, to let us know, and he expressed understanding. For now continue temazepam and benztropine as needed for muscle tension. -Continue to attend participate in groups, work on healthy coping skills and discharge safety plan. 11/05 - Pt was cooperative with conversation regarding recommendation for an antipsychotic trial - patient agreeable with perphenazine. Will order 4mg daily to initiated with titration as tolerated. - Pt continues to report muscle stiffness and continues to request benztropine - given risk of true EPS with antipsychotic retrial, will continue to have this medication available as needed - Continues to report auditory hallucinations contributing to ongoing suicidality; reports he would be unsafe to leave the hospital at this time 11/06 - continue Trilafon trial, hold additional titration as hx of significant EPS when titrated too quickly. 11/07 - Titrate Trilafon to 4 mg BID (2nd dose with evening meal) 11/08 - Maintain current dosage of Trilafon - can continue cautious titration as tolerated - Pt encouraged to focus on safety planning efforts, as he is reporting some improvement in SI and voicing ultimate desire to return to the [facility] (2) Auditory hallucinations: 10/16 -Patient's chief complaint has to do with persistent persecutory auditory hallucinations. He describes the voices as being "electronically generated," and although he tells us that he does not know the source of the electronically generated voices, he says that he has no doubt that they are real and are coming from some entity that is trying to torture and/or kill him. His explanation for the suicide attempt was not that he has been depressed, but, instead, because he feels tortured by the voices and finds that he can no longer tolerate hearing them and no longer tolerate feeling terrorized by them. Patient also explains that he would rather at his own hand than risk being murdered by unknown forces and unknown means. -The patient's condition has been largely treatment resistant to psychiatric medications. With each antipsychotic medication mentioned, the patient's response has been to assert that the specific medicine mentioned has been tried and was not effective, or has been tried and caused worsening symptoms. Today, he asserts that he has taken clozapine in the past, but that it was not effective. He has unable to identify the dose, and does not recall when or where it was prescribed, but says that he believes that he took it for "a month or 2" before it was discontinued as ineffective. Other options for the patient might be a trial of perphenazine or loxapine. For now, the patient has indicated that he would prefer to remain on Geodon 80 mg twice a day. 3/4 - Auditory hallucinations are ongoing. Pt does report that the voices are quieter, but when asked for how long he states "just now, since you asked" - Unclear how reliable patient's reports are on this topic, though it is anticipated ongoing titration of clozapine may be helpful for this 3/5 - Pt more focused on "head buzzing" today, does not mention auditory hallucinations today though this does not mean he is not experiencing them 3/6 -Today, the patient reports that he is troubled both by "a buzzing sound" in both ears, as well as by voices". He tells us that he believes that the voices are being generated by a computer and that the threats that are made through the's "voices" are genuine and represent a mortal danger. He insists that he is being told that he is going to be murdered. -I tried to talk to the patient about the fact that his records, going back many years, speak to the presence of similar perceptual disturbances and similar believes. The patient responds by saying, "they have come close to killing me a number of times. 1 of these days they are going to do it!" -We are discontinuing Geodon today and will be increasing his dose of clozapine, beginning tonight. The new dose of clozapine will be 150 mg at bedtime and 25 mg in the morning. We expect that we will need to continue to titrate. We will also reintroduce clozapine, albeit at a lower dose, should his psychiatric condition worsen. Our concern at this point is excess sedation associated with our current cross titration of Geodon and clozapine. 10/23 - Pt denies significant change from above at this time 10/24 - Ongoing, unchanged with current dose of clozapine - pt would likely require further titration of clozapine to therapeutic range; however, this titration must be balanced with concerns the medication may be causing EPS and parkinsonism - Will reduce dose of clozapine to 150mg qHS and suggest reduced pace of titration 10/28 --no change on current dose of Clozaril, will ask Dr. Dorsey to provide second opinion re: use and dose of Clozaril given course in past week. 10/29 - No change in AH at this time 11/03 -Patient continues to refuse all antipsychotic medication. Advised that if he is willing to trial any medication in this group, to let us know, and he agreed. He often refuses medications for a time before choosing 1. 11/05 - Pt now agreeable with a trial of perphenazine to target auditory hallucinations - will start with 4mg daily and titrate as tolerated 11/08 - See treatment plan for "Schizophrenia" above (3) Benzodiazepine abuse: 10/14 - Historical diagnosis of benzodiazepine abuse - Will not continue home dose of alprazolam - but will offer temazepam 15mg qHS for sleep as it has been effective - Will need to consider the safety of this medication regimen, and may suggest discontinuation of benzodiazepines at discharge given his history - Benzodiazepines are not recommended for the patient if he would be discharged to an unsupervised setting or expected to manage his own medication administration 10/16 -The patient is history of benzodiazepine abuse is noted. That history not withstanding, at seems apparent that the only hypnotic medication that has been consistently effective for this patient has been temazepam, and there is no evidence that he has been misusing this medication in the community prior to admission. -The material risks of temazepam, including but not limited to, risk of a physical habituation, risk of complicated and possibly fatal withdrawal symptoms, risk of accidents, falls and other injuries, as well as risk of worsening depression and clouded consciousness/cognitive impairment were reviewed with the patient, and he responded by saying, "I know. But it is the only thing that works. I really need to sleep, and without it the voices keep me awake all night." 10/22 -The patient's history of benzodiazepine continues to be noted. However, the patient's current condition, we continue to feel that the use of temazepam for sleep is medically necessary and appropriate. 10/25--d/c temazepam as seems to be contributing to AMS? 11/03--temazepam 7.5 mg at bedtime was resumed 10/28/2019, and patient has continued on that dose, which appears to be helping for sleep. We will need to explore options to ensure safety with this medication at discharge; patient will be returning to the [facility], but in the past has refused to allow staff to hold his medication bottles, which would not be advisable given his substance abuse history and overdose risk. 11/05 - We have been able to confirm with the [facility] that they will hold patient's prescribed medications and distribute accordingly. This plan would reduce risk of patient returning to behaviors of benzodiazepine abuse. (4) Tylenol overdose: 10/14 - Continue management per medical team - Recheck LFTs tomorrow morning. Today, AST 70, ALT 631. 10/15 -Continue to trend down. AST 54, ALT 538. We will reorder LFTs for Saturday. Avoid hepatotoxic agents. 10/16 -Patient reports that he remains suicidal and confirms that his overdose of Tylenol was taken with the intent of causing his own . 11/08 - Focus of this particular problems has shifted toward management of schizophrenia and targeting auditory hallucinations which were reported to have been a trigger for his overdose - Consider this problem itself resolved, though we are continuing to work on safety planning efforts. (5) Hypertension: 10/14 - Home medication includes clonidine 0.1mg qHS - Will continue to monitor blood pressure with daily vitals, consider resuming 10/20 - We have continued daily blood pressures, some of which have been mildly elevated but not consistently - Given increased fatigue and concern for falls related to intermittent unsteadiness with ambulation, will continue to hold clonidine at this time 10/22 -Today, the patient's blood pressure is within normal limits. 11/08 - No active changes to this issue - blood pressure continues to be within reasonable limits despite holding home dose of clonidine - Pt can follow-up with his PCP for ongoing monitoring and management Risk Factors Assessment Male: Yes : Yes Do You Have Access To A Gun?: No Health Problems: No Mental Health Diagnoses: Yes Substance Use Disorders: Yes Previous Attempt: Yes Family History of Suicide: Yes (cousin) Previous Psychiatric Hospitalization: Yes Hopelessness: Yes Protective Factors Assessment Orthodoxy Beliefs: No : No Responsible for Young Children: No Employed: No Stable Relationships: No Supportive Family: No Good Rapport with Provider: No Interval History Identifying Information SCOTT ROBERTO is a 74-year-old M who currently lives in [place] at the [facility]. Pt has a history of schizophrenia and this is his fourth psychiatric admission to our unit in roughly the last 7 months, with one admission to [facility] in that time as well. Pt was admitted on 10/14/19 12:33 on a 201 voluntary commitment after being treated on the medical floor since 10/09/2019 after an intentional Tylenol overdose. 306 conversion hearing was held on 10/16/2019 and his 305 IOC was converted to an inpatient commitment. Chief Complaint "Um, I'm ok." Review of Systems Notes Constitutional: denied Cardiovascular: denied Respiratory: denied Gastrointestinal: denied Neurological: denied Psychiatric: denies symptoms other than stated above Total of at least 10 systems reviewed, pertinent positives as above and in HPI. Sleep Information Total Hours of Sleep: 9 Sleep Comments: pt on q-15 minute checks Meal Information Percent Meal Consumed - Breakfast: 100 Percent Meal Consumed - Lunch: 100 Percent Meal Consumed - Dinner: 100 Subjective Subjective Patient was seen & assessed and interval progress reviewed with treatment team. Staff report the patient continues to display a flat affect, but has been attending group programming routinely. Pt was seen today to assess progress since admission. Pt states that he is "ok" and that the weekend went well. He states "nothing has changed." Pt states he is unsure of medication changes stating "I'm sure I was told, but I probably wasn't listening." He does verify that he is aware his medications were adjusted and he is now taking perphenazine - he remains agreeable with continuing to titrate the dose as tolerated after review of current treatment plan. Pt denies significant change in the presence of auditory hallucinations at this time. When asked about SI, the patient states "it's actually better." While he is not able to convincingly deny the presence of SI, he does admit he is less preoccupied with this. Pt was asked about the themes of any negative thoughts - stating only "about going back to that dump" referring to the [facility], but states he would still like to return back there on discharge. Pt also requests medication for anxiety as he states he is "stir crazy." We discussed moving forward with safety planning steps, and patient was encouraged to work through his safety plan with assistance from staff as needed. Pt denies other needs or concerns at this time. Pt was reminded of his ability to go outside if desired, as he is coming close to a 30- day stay. Pt declined on 11/05 when offered. He continues to decline today. He states "when the temperature is in the 70's, then we can talk." Pt was reminded we would continue to offer regularly. Physical Exam Psychiatric Orientation: alert and cooperative Apperance: appropriately dressed, appropriately groomed and appeared stated age Eye Contact: good eye contact Motor Behavior: steady gait and station and no abnormal motor movements Speech: normal rate/rhythm/volume of speech (brief responses to questions) Affect: + flat affect (but jokes occasionally ) and mood congruent with affect Mood: no depressed mood and no anxious mood "Ok" Thought Process: goal directed thought process and + concrete thought process Thought Content: + hopelessness; not paranoid and no delusions Suicidal Thoughts: denies suicidal intent; + reports suicidal thoughts (but does admit this is getting "Better") Homicidal Thoughts: denies homicidal thoughts Hallucinations: + auditory hallucinations (denies change in severity of "voices" at this time); no visual hallucinations Cognition: attention grossly intact and language grossly intact; + recent memory not intact Insight: + impaired insight Judgement: + impaired judgement Vital Signs (Past 24 Hours) Last Vital Signs Temp 36.8 C 11/09/19 06:49 Pulse 78 11/09/19 06:50 Resp 18 11/09/19 06:49 BP 117/71 11/09/19 06:50 Pulse Ox 96 10/22/19 23:30 Results & Data ([facility]) Current Inpatient Medications Current Inpatient Medications: Current Inpatient Medications Al Hydrox/Mg Hydrox/Simethicone (Maalox) 30 ml PO Q4H PRN PRN Reason: GI Upset Stop: 11/13/19 13:39 Benztropine Mesylate (Cogentin) 0.5 mg PO DAILY PRN PRN Reason: EPS/restlessness Stop: 11/29/19 11:31 Last Admin: 11/08/19 10:32 Dose: 0.5 mg Documented by: Bismuth Subsalicylate (Kaopectate) 15 ml PO PRN PRN PRN Reason: Loose Stool Stop: 11/13/19 13:39 Docusate Sodium (Colace) 100 mg PO BID COUNT INCLUDES THE [facility] Stop: 11/13/19 20:59 Last Admin: 11/09/19 08:31 Dose: 100 mg Documented by: Hydroxyzine HCl (Vistaril) 50 mg PO HSZ PRN PRN Reason: Insomnia Stop: 11/13/19 13:39 Hydroxyzine HCl (Vistaril) 25 mg PO Q4H PRN PRN Reason: Anxiety Stop: 11/13/19 13:39 Last Admin: 11/09/19 09:15 Dose: 25 mg Documented by: Magnesium Hydroxide (Milk Of Magnesia) 30 ml PO DAILY PRN PRN Reason: Constipation Stop: 11/13/19 13:39 Magnesium Oxide (Mag-Ox) 400 mg PO DAILY COUNT INCLUDES THE [facility] Stop: 11/14/19 08:59 Last Admin: 11/09/19 08:31 Dose: 400 mg Documented by: Perphenazine (Trilafon) 4 mg PO BID17 COUNT INCLUDES THE [facility] Stop: 12/08/19 16:59 Last Admin: 11/09/19 08:31 Dose: 4 mg Documented by: Polyethylene Glycol (Miralax Powder Packet) 17 gm PO DAILY COUNT INCLUDES THE [facility] Stop: 11/14/19 08:59 Last Admin: 11/09/19 08:31 Dose: 17 gm Documented by: Potassium Chloride (Klor-Con M20) 20 meq PO DAILY MAG Stop: 11/14/19 08:59 Last Admin: 11/09/19 08:31 Dose: 20 meq Documented by: Senna/Docusate Sodium (Senokot S) 1 tab PO QAM MAG Stop: 11/14/19 08:59 Last Admin: 11/09/19 08:31 Dose: 1 tab Documented by: Sodium Chloride (Bristow Nasal) 1 - 2 sprays NA PRN PRN PRN Reason: Nasal Dryness/Congestion Stop: 11/13/19 13:39 Temazepam (Restoril) 7.5 mg PO HSZ MAG Stop: 11/27/19 21:59 Last Admin: 11/08/19 20:18 Dose: 7.5 mg Documented by: Mental Health & Subst Abuse Tx Psychiatrist Name of Psychiatrist: [facility] - Dr. Alves Psychiatrist's Psychiatric Appointment Comment: [address], [address], [place] [address] Therapist Name of Therapist: none Rubber Tester Name of Rubber Tester: Shruti Mcbride Phone Number for Rubber Tester: [phone] Case Management Appointment Comment: Comes to see you at the [facility] Post Discharge Appointments Primary Care Physician Name Of Family Doctor: [facility] - Dr. Jeff Lopez Primary Care Provider Appointment Comment: [address], [address], [place] [address] Neurologist Name of Neurologist: [facility] - Dr. Caal Neurologist's Date of Appointment with Neurologist: 11/17/19 Time of Appointment with Neurologist: 11:00 a.m. Neurology Appointment Comment: [id number], [place] [address] Contact Information Discharge Discharge Address: [address] [place] [address], [place] [address] Contact Information Comment: [facility] (1) Schizophrenia Schizophrenia type: paranoid schizophrenia Qualified Code(s): F20.0 - Paranoid schizophrenia (2) Hypertension Hypertension type: essential hypertension Qualified Code(s): I10 - Essential (primary) hypertension
[2019-11-09] MEDS: BENZTROPINE MESYLATE 0.5 MG TAB PO PRN (11:03)
[2019-11-09] MEDS: TEMAZEPAM 7.5 MG CAPSULE PO SCH (20:45)
[2019-11-10] MEDS: MAGNESIUM OXIDE 400 MG TAB PO SCH (08:27)
[2019-11-10] MEDS: POTASSIUM CHLORIDE 20 MEQ TABCR PO SCH (08:27)
[2019-11-10] MEDS: DOCUSATE SODIUM 100 MG CAP PO SCH ×2 (08:27→20:23)
[2019-11-10] MEDS: PERPHENAZINE 2 MG TABLET PO SCH ×2 (08:28→16:21)
[2019-11-10] MEDS: POLYETHYLENE (MIRALAX) 17 GM PACK PO SCH (08:28)
[2019-11-10] MEDS: DOCUSATE SODIUM/SENNA 50/8.6MG TAB PO SCH (08:28)
--- NOTE | 2019-11-10 08:56 | Psychiatric Progress Note ---
Date of Service November 10, 2019 Impression / Recommendations Impression 74-year-old male with chronic schizophrenia who presented 10/08/2019 after he was found unresponsive at the [facility] and admitted to taking a massive, potentially lethal Tylenol overdose in an attempt to end his life. Admitted to the hospitalist service for 6 days, and transferred voluntarily to our unit on 10/14/19. He was on an involuntary 305 outpatient commitment which was converted to inpatient on 10/16/19 (expires 11/21/2019), and we are filing for a another 305 hearing next week, as he requires ongoing involuntary commitment, both in the hospital and then as an outpatient when he is discharged. He has had numerous medication changes: Mirtazapine and Xanax were discontinued as he reported they were ineffective. He was started on temazepam while on the hospitalist service for reports of poor sleep, and this medication appears to be effective, although he continues to report poor sleep. We will need to consider safety concerns at discharge, given his history of benzodiazepine abuse and chronic suicidal ity/overdose risk, as in the past he has not allowed it [facility] staff to hold his medications and insisted on keeping them in his room.he was initially placed back on ziprasidone, but reported it was ineffective and agreed to a retrial of Clozaril 10/17, however, trial was halted on 10/29 when patient demonstrated increased confusion and EPS. He refused antipsychotic medication for a week, and agreed to start a trial of perphenazine on 11/06/2019. He continues to report command auditory hallucinations and suicidal ideation. Inpatient hospitalization remains the least restrictive setting for him at this time. (1) Schizophrenia: 10/14 - Continue ziprasidone as initiated on the medical floor - resume 80mg BID dosing with meals - Continue benztropine 0.5mg as needed for reports of stiffness, though it remains unclear if this is truly related to his antipsychotic medication - Mirtazapine was discontinued on the medical floor as patient feels it had been ineffective - Continue temazepam 15mg qHS for sleep - at least while hospitalized in a supervised setting, as patient has a history of benzodiazepine abuse - Will coordinate treatment with patient's outpatient psychiatric supports - Encourage participation in group and recreational programming 10/15 -Continue ziprasidone; reviewed fasting lipid profile and fasting glucose from 02/2019, all values were within normal limits. -Discussed trial of clozapine; patient states that he believes he was on this medication in the past and that it was ineffective. Continue to provide education and encourage retrial, as he has had limited response to multiple other antipsychotics, and it would also help address suicidal thoughts in addition to psychosis. -Involve outpatient clinical case manager and coordinate with psychiatrist, Dr. Alves. 10/16 -The plan is to continue ziprasidone 80 mg twice a day. We discussed other treatment options with the patient, and he says that he is not interested in t rying the various options suggested. He tends to respond in the affirmative every time he is asked whether he has ever taken a number of specific medications, and replies in each instance "it did not help." He does say, somewhat convincingly, that he took clozapine (dose unspecified and unknown by the patient) a number of years ago for "a month or 2," and that it did not help. Re-challenging the patient with clozapine may be helpful, but at present the patient indicates that he will refuse to take it. -The patient hesitates when asked about loxapine and perphenazine, but then says that he has taken both. Loxapine is not on the hospital formulary. Today, the patient says that he is not interested in trying either of these medications "again." -Today, the patient tells us that he "really does not" want to go to the [facility] ("[facility]"), although he had previously said that he might be interested in doing that. He adds that he does feel safer in a hospital, but feels that he would like to work towards being able to be discharged back to the community at this point. 10/17 --reconsented for retrial of Clozaril following review of CBC and EKG, patient aware to monitor constipation and sialorrhea and notify staff. will dose at hs and titrate by 25 mg nightly, repeat CBC in 1 week. 10/18--titrate Clozaril to 50 mg po qhs, Dr. Campos notified to consider EKG for repeat QTC on med combo as dose is increased, EPS apparently predates start of Clozaril and is not new, he is agreeable to add 0.5 mg Cogentin standing order as trial basis. 10/19 - Continue clozapine titration (now ordered for automatic titration of 25mg each evening), pt to receive 75mg tonight - Pt reports his condition remains unchanged at this time, but is aware that clozapine will need to be titrated to an effective dose range - At this time, patient maintains his desire would be for eventual discharge back to the [facility] - no longer requesting [facility] referral - He remains suicidal and continues to report head buzzing and auditory hallucinations that are overwhelming to him 10/20 - Continue clozapine titration - pt to receive 100mg tonight - Will reduce ziprasidone to 60mg BID given continued titration of clozapine and reported ineffectiveness of the medication - will order an EKG for tomorrow morning, given cross-titration putting patient at increased risk of QTc prolongation. - Ongoing discussions regarding discharge planning - Pt continues to verbalize SI and feels he cannot contract for safety outside of the hospital setting 10/21 - Clozapine to be titrated to 125mg this evening; will continue ziprasidone 60mg BID for now though can consider ongoing taper - EKG ordered this morning, and reviewed QTc 445 - Reports ongoing SI - stating he is "pretty d*mn close" to wanting to - Discharge planning meeting scheduled for tomorrow 10/22 -Discharge remaining has been postponed. -Ziprasidone was held this morning, and the patient's cognition seems to have cleared. He is fully oriented and has not shown evidence of confusion. The patient, himself, notes that his thinking does seem to be more clear than it had been. -We will further titrate clozapine 250 mg at bedtime and 25 mg in the morning. -Because of persistent disturbing auditory hallucinations that the patient reports prevent him from easily inducing and maintaining sleep we will increase his dose of temazepam from 15 mg at bedtime for sleep to a dose of 22.5 mg at bedtime as needed sleep. -Although the patient's cognition seems to have improved, staff recall that during at least 1 previous admission the patient had similar mental status alterations and a urinary tract infection was found to been contributory. For that reason, we have ordered a urinalysis. -The patient has been demonstrating a shuffling gait, and on testing today a substantial degree of cogwheel rigidity was noted. The patient also reports a feeling "jumpy" and "restless." He had been receiving benztropine 0.5 mg twice a day, and while this may have been helpful, it seems not to have been fully effective. We will try trihexyphenidyl 2 mg stat and then 2 mg twice a day, and titrate further as indicated. 10/23 - Titrate clozapine to 25mg qAM and 200mg qHS - continue to hold ziprasidone at this time - Pt continues to reports stiffness and difficulty with ambulation, given that we are continuing to titrate clozapine we will order an additional prn dose of trihexyphenidyl 2mg with consideration to schedule the dose if necessary - UA results reviewed - no indication for current UTI - Will need to continue to discuss appropriate discharge timeline - patient remains suicidal 10/24 - Given concern for confusion, EPS and parkinsonism, morning dose of clozapine was held - Will reduce patient's dose to 150mg qHS and plan for a slower titration. This dosage continues to be subtherapeutic, and patient will require advancement of dose as tolerated - Will discontinue trihexyphenidyl due to concern for urinary retention - will resume benztropine 1mg BID for ongoing stiffness and EPS - Will plan to reduce dose of temazepam to 7.5mg with a one-time repeat if necessary - Pt placed on MNPR due to ambulatory concerns, somewhat disruptive behavior related to his physical complaints, and need for close observation at this time 10/27 --resume low dose Restoril as seems more disorganized with poorer quality sleep, reviewed can impact risk of falls, ?anticholinergic side effects 10/28 --will decrease Cogentin given potential that anticholinergic side effects are worsening his cognition. 10/29 - Will discontinue clozapine at this time - allow patient to clear for a period of time and then consider resuming an antipsychotic medication as he continues to experience auditory hallucinations - Will continue Cogentin, but switch to prn - unlikely to require regularly until/unless an antipsychotic medication is resumed. Agree with concern the medication may increase risk of confusion/falls - Resumed MNPR due to behaviors associated with confusion that are not compatible with and would be disruptive to a roommate at this time 10/30 - holding off starting a different antipsychotic at this time to give time to clear from potential worsening of presentation from clozapine trial, maintained MNPR for now 10/31 plan unchanged for now, consider options to treat psychotic processes that appear ongoing so far while holding for now as potential that medication reaction adding to presentation 11/01 - Continue to hold clozapine - consider alternative antipsychotic agents to target auditory hallucinations which are ongoing - Will allow for a 7.5mg repeat dose of temazepam, as patient continues to report poor sleep. While temazepam may contribute to confusion, poor quality of sleep may be contributing as well. Pt should not receive an additional dose if he is appearing confused or if gait is unstable. - Pt continues to report suicide "it's still an option" if AH continue - he is admitted presently to feeling as though he would seek help before acting on these thoughts - Will need to scheduled discharge planning meeting with the [facility] once patient is appropriate to participate 11/02 - Continue hold on clozapine - will plan to discuss treatment alternatives during treatment team tomorrow morning in order to provide additional time to clear after clozapine initiation. Pt reports no improvement in symptoms since admission and is agreeable with trial of medications to target his auditory hallucinations - he is specifically requesting "Valium three times a day." - Reviewed history of past antipsychotic medication trials: Zyprexa ("is a joke", restlessness, ineffective); Geodon (ineffective); Abilify (ineffective) - Pt reports desire to return to the [facility] after discharge, but continues to report SI and is not cleared for discharge at this time 11/03 - 11/04 -Patient continues to refuse all antipsychotic medication. Advised him that if he is willing for a trial of any medication in his group, to let us know, and he expressed understanding. For now continue temazepam and benztropine as needed for muscle tension. -Continue to attend participate in groups, work on healthy coping skills and discharge safety plan. 11/05 - Pt was cooperative with conversation regarding recommendation for an antipsychotic trial - patient agreeable with perphenazine. Will order 4mg daily to initiated with titration as tolerated. - Pt continues to report muscle stiffness and continues to request benztropine - given risk of true EPS with antipsychotic retrial, will continue to have this medication available as needed - Continues to report auditory hallucinations contributing to ongoing suicidality; reports he would be unsafe to leave the hospital at this time 11/06 - continue Trilafon trial, hold additional titration as hx of significant EPS when titrated too quickly. 11/07 - Titrate Trilafon to 4 mg BID (2nd dose with evening meal) 11/08 - Maintain current dosage of Trilafon - can continue cautious titration as tolerated - Pt encouraged to focus on safety planning efforts, as he is reporting some improvement in SI and voicing ultimate desire to return to the [facility] 11/09 -file for 306 hearing, to initiate another 305 involuntary commitment, as patient's current commitment will 11/21/2019. This will need to be converted to an IOC at discharge. (2) Auditory hallucinations: 10/16 -Patient's chief complaint has to do with persistent persecutory auditory hallucinations. He describes the voices as being "electronically generated," and although he tells us that he does not know the source of the electronically generated voices, he says that he has no doubt that they are real and are coming from some entity that is trying to torture and/or kill him. His explanation for the suicide attempt was not that he has been depressed, but, instead, because he feels tortured by the voices and finds that he can no longer tolerate hearing them and no longer tolerate feeling terrorized by them. Patient also explains that he would rather at his own hand than risk being murdered by unknown forces and unknown means. -The patient's condition has been largely treatment resistant to psychiatric medications. With each antipsychotic medication mentioned, the patient's response has been to assert that the specific medicine mentioned has been tried and was not effective, or has been tried and caused worsening symptoms. Today, he asserts that he has taken clozapine in the past, but that it was not effective. He has unable to identify the dose, and does not recall when or where it was prescribed, but says that he believes that he took it for "a month or 2" before it was discontinued as ineffective. Other options for the patient might be a trial of perphenazine or loxapine. For now, the patient has indicated that he would prefer to remain on Geodon 80 mg twice a day. 3/4 - Auditory hallucinations are ongoing. Pt does report that the voices are quieter, but when asked for how long he states "just now, since you asked" - Unclear how reliable patient's reports are on this topic, though it is anticipated ongoing titration of clozapine may be helpful for this 3/5 - Pt more focused on "head buzzing" today, does not mention auditory hallucinations today though this does not mean he is not experiencing them 3/6 -Today, the patient reports that he is troubled both by "a buzzing sound" in both ears, as well as by voices". He tells us that he believes that the voices are being generated by a computer and that the threats that are made through the's "voices" are genuine and represent a mortal danger. He insists that he is being told that he is going to be murdered. -I tried to talk to the patient about the fact that his records, going back many years, speak to the presence of similar perceptual disturbances and similar believes. The patient responds by saying, "they have come close to killing me a number of times. 1 of these days they are going to do it!" -We are discontinuing Geodon today and will be increasing his dose of clozapine, beginning tonight. The new dose of clozapine will be 150 mg at bedtime and 25 mg in the morning. We expect that we will need to continue to titrate. We will also reintroduce clozapine, albeit at a lower dose, should his psychiatric condition worsen. Our concern at this point is excess sedation associated with our current cross titration of Geodon and clozapine. 10/23 - Pt denies significant change from above at this time 10/24 - Ongoing, unchanged with current dose of clozapine - pt would likely require further titration of clozapine to therapeutic range; however, this titration must be balanced with concerns the medication may be causing EPS and parkinsonism - Will reduce dose of clozapine to 150mg qHS and suggest reduced pace of titration 10/28 --no change on current dose of Clozaril, will ask Dr. Dorsey to provide second opinion re: use and dose of Clozaril given course in past week. 10/29 - No change in AH at this time 11/03 -Patient continues to refuse all antipsychotic medication. Advised that if he is willing to trial any medication in this group, to let us know, and he agreed. He often refuses medications for a time before choosing 1. 11/05 - Pt now agreeable with a trial of perphenazine to target auditory hallu cinations - will start with 4mg daily and titrate as tolerated 11/08 - See treatment plan for "Schizophrenia" above (3) Benzodiazepine abuse: 10/14 - Historical diagnosis of benzodiazepine abuse - Will not continue home dose of alprazolam - but will offer temazepam 15mg qHS for sleep as it has been effective - Will need to consider the safety of this medication regimen, and may suggest discontinuation of benzodiazepines at discharge given his history - Benzodiazepines are not recommended for the patient if he would be discharged to an unsupervised setting or expected to manage his own medication administration 10/16 -The patient is history of benzodiazepine abuse is noted. That history not withstanding, at seems apparent that the only hypnotic medication that has been consistently effective for this patient has been temazepam, and there is no evidence that he has been misusing this medication in the community prior to admission. -The material risks of temazepam, including but not limited to, risk of a physical habituation, risk of complicated and possibly fatal withdrawal symptoms, risk of accidents, falls and other injuries, as well as risk of worsening depression and clouded consciousness/cognitive impairment were reviewed with the patient, and he responded by saying, "I know. But it is the only thing that works. I really need to sleep, and without it the voices keep me awake all night." 10/22 -The patient's history of benzodiazepine continues to be noted. However, the patient's current condition, we continue to feel that the use of temazepam for sleep is medically necessary and appropriate. 10/25--d/c temazepam as seems to be contributing to AMS? 11/03--temazepam 7.5 mg at bedtime was resumed 10/28/2019, and patient has continued on that dose, which appears to be helping for sleep. We will need to explore options to ensure safety with this medication at discharge; patient will be returning to the [facility], but in the past has refused to allow staff to hold his medication bottles, which would not be advisable given his substance abuse history and overdose risk. 11/05 - We have been able to confirm with the [facility] that they will hold patient's prescribed medications and distribute accordingly. This plan would reduce risk of patient returning to behaviors of benzodiazepine abuse. (4) Tylenol overdose: 10/14 - Continue management per medical team - Recheck LFTs tomorrow morning. Today, AST 70, ALT 631. 10/15 -Continue to trend down. AST 54, ALT 538. We will reorder LFTs for Saturday. Avoid hepatotoxic agents. 10/16 -Patient reports that he remains suicidal and confirms that his overdose of Tylenol was taken with the intent of causing his own . 11/08 - Focus of this particular problems has shifted toward management of schizophrenia and targeting auditory hallucinations which were reported to have been a trigger for his overdose - Consider this problem itself resolved, though we are continuing to work on safety planning efforts. (5) Hypertension: 10/14 - Home medication includes clonidine 0.1mg qHS - Will continue to monitor blood pressure with daily vitals, consider resuming 10/20 - We have continued daily blood pressures, some of which have been mildly elevated but not consistently - Given increased fatigue and concern for falls related to intermittent unsteadiness with ambulation, will continue to hold clonidine at this time 10/22 -Today, the patient's blood pressure is within normal limits. 11/08 - No active changes to this issue - blood pressure continues to be within reasonable limits despite holding home dose of clonidine - Pt can follow-up with his PCP for ongoing monitoring and management Risk Factors Assessment Male: Yes : Yes Do You Have Access To A Gun?: No Health Problems: No Mental Health Diagnoses: Yes Substance Use Disorders: Yes Previous Attempt: Yes Family History of Suicide: Yes (cousin) Previous Psychiatric Hospitalization: Yes Hopelessness: Yes Protective Factors Assessment [facility] Beliefs: No : No Responsible for Young Children: No Employed: No Stable Relationships: No Supportive Family: No Good Rapport with Provider: No Interval History Identifying Information SCOTT ROBERTO is a 74-year-old M who currently lives in [place] at the [facility]. Pt has a history of schizophrenia and this is his fourth psychiatric admission to our unit in roughly the last 7 months, with one admission to [facility] in that time as well. Pt was admitted on 10/14/19 12:33 on a 201 voluntary commitment after being treated on the medical floor since 10/09/2019 after an intentional Tylenol overdose. 306 conversion hearing was held on 10/16/2019 and his 305 IOC was converted to an inpatient commitment. Chief Complaint " Oh, pretty good ". Review of Systems Sleep Information Total Hours of Sleep: 8.25 Sleep Comments: pt on q-15 minute checks Meal Information Percent Meal Consumed - Breakfast: 100 Percent Meal Consumed - Lunch: 100 Percent Meal Consumed - Dinner: 100 Subjective Subjective Patient was seen & assessed and interval progress reviewed with nursing and social work. Staff report he was able to attend to participate in groups yesterday, and was less irritable. He reported ongoing suicidal thoughts, stating he did not feel safe outside of the hospital, but denied intent to harm himself in the hospital. He endorsed auditory hallucinations of voices, and did not want to discuss the content. He is taking his scheduled perphenazine 4 mg twice daily. On my assessment today, he reports that his mood has improved, describes it as "pretty good," and rates it an 8/10. He states that it is better because he is "getting used to the voices," and is trying to ignore them by walking, resting, and reading magazines. He states the voices continue to tell him to commit suicide, "that is why I came in here." He feels safe in the hospital, but is not sure that he would be safe if he were discharged. He does think that the volume of the voices has gone down somewhat, and reports he is tolerating medications well, including perphenazine. He thinks temazepam is helping for sleep, and denies morning hangover, unsteadiness, and memory impairment. He reports good appetite, and states he plans to return to the [facility] once he is ready for discharge. He was informed of the plan to have a commitment hearing next week, as his 305 commitment is due to and we are recommending it be renewed. Physical Exam Psychiatric Orientation: alert and cooperative Apperance: appropriately dressed, appropriately groomed and appeared stated age Eye Contact: good eye contact Motor Behavior: steady gait and station and + psychomotor agitation (Feet are fidgeting throughout assessment.) Speech: normal rate/rhythm/volume of speech Affect: + blunted affect (But did smile appropriately at the end of the interview, which is an improvement) Patient reports improved mood. Thought Process: goal directed thought process Thought Content: + delusions Suicidal Thoughts: + reports suicidal thoughts Homicidal Thoughts: denies homicidal thoughts Hallucinations: + auditory hallucinations; no visual hallucinations Cognition: attention grossly intact and language grossly intact Insight: + impaired insight Judgement: + impaired judgement Vital Signs (Past 24 Hours) Last Vital Signs Temp 36.4 C L 11/10/19 06:38 Pulse 78 11/10/19 06:39 Resp 18 11/10/19 06:38 BP 124/78 11/10/19 06:39 Pulse Ox 96 10/22/19 23:30 Results & Data ([facility]) Current Inpatient Medications Current Inpatient Medications: Current Inpatient Medications Al Hydrox/Mg Hydrox/Simethicone (Maalox) 30 ml PO Q4H PRN PRN Reason: GI Upset Stop: 11/13/19 13:39 Benztropine Mesylate (Cogentin) 0.5 mg PO DAILY PRN PRN Reason: EPS/restlessness Stop: 11/29/19 11:31 Last Admin: 11/09/19 11:03 Dose: 0.5 mg Documented by: Bismuth Subsalicylate (Kaopectate) 15 ml PO PRN PRN PRN Reason: Loose Stool Stop: 11/13/19 13:39 Docusate Sodium (Colace) 100 mg PO BID [facility] Stop: 11/13/19 20:59 Last Admin: 11/10/19 08:27 Dose: 100 mg Documented by: Hydroxyzine HCl (Vistaril) 50 mg PO HSZ PRN PRN Reason: Insomnia Stop: 11/13/19 13:39 Hydroxyzine HCl (Vistaril) 25 mg PO Q4H PRN PRN Reason: Anxiety Stop: 11/13/19 13:39 Last Admin: 11/09/19 09:15 Dose: 25 mg Documented by: Magnesium Hydroxide (Milk Of Magnesia) 30 ml PO DAILY PRN PRN Reason: Constipation Stop: 11/13/19 13:39 Magnesium Oxide (Mag-Ox) 400 mg PO DAILY [facility] Stop: 11/14/19 08:59 Last Admin: 11/10/19 08:27 Dose: 400 mg Documented by: Perphenazine (Trilafon) 4 mg PO BID17 [facility] Stop: 12/08/19 16:59 Last Admin: 11/10/19 08:28 Dose: 4 mg Documented by: Polyethylene Glycol (Miralax Powder Packet) 17 gm PO DAILY [facility] Stop: 11/14/19 08:59 Last Admin: 11/10/19 08:28 Dose: 17 gm Documented by: Potassium Chloride (Klor-Con M20) 20 meq PO DAILY [facility] Stop: 11/14/19 08:59 Last Admin: 11/10/19 08:27 Dose: 20 meq Documented by: Senna/Docusate Sodium (Senokot S) 1 tab PO QAM [facility] Stop: 11/14/19 08:59 Last Admin: 11/10/19 08:28 Dose: 1 tab Documented by: Sodium Chloride (Limestone Nasal) 1 - 2 sprays NA PRN PRN PRN Reason: Nasal Dryness/Congestion Stop: 11/13/19 13:39 Temazepam (Restoril) 7.5 mg PO HSZ MAG Stop: 11/27/19 21:59 Last Admin: 11/09/19 20:45 Dose: 7.5 mg Documented by: Mental Health & Subst Abuse Tx Psychiatrist Name of Psychiatrist: [facility] - Dr. Alves Psychiatrist's Psychiatric Appointment Comment: [address], [address], [address], [place] [address] Therapist Name of Therapist: none Iridologist Name of Iridologist: Shruti Mcbride Phone Number for Iridologist: [phone] Case Management Appointment Comment: Comes to see you at the [facility] Post Discharge Appointments Primary Care Physician Name Of Family Doctor: [facility] - Dr. Jeff Lopez Primary Care Provider Appointment Comment: [address], [address], [place] [address] Neurologist Name of Neurologist: [facility] Lowell Caal Neurologist's Date of Appointment with Neurologist: 11/17/19 Time of Appointment with Neurologist: 11:00 a.m. Neurology Appointment Comment: [address] [facility] [address], [place] [address] Contact Information Discharge Discharge Address: [address] [place] [address], [place] [address] Contact Information Comment: [facility] ([facility]) Schizophrenia Schizophrenia type: paranoid schizophrenia Qualified Code(s): F20.0 - Paranoid schizophrenia (2) Hypertension Hypertension type: essential hypertension Qualified Code(s): I10 - Essential (primary) hypertension
[2019-11-10] MEDS: BENZTROPINE MESYLATE 0.5 MG TAB PO PRN (16:21)
[2019-11-10] MEDS: TEMAZEPAM 7.5 MG CAPSULE PO SCH (20:23)
[2019-11-11] MEDS: DOCUSATE SODIUM 100 MG CAP PO SCH ×2 (08:27→20:40)
[2019-11-11] MEDS: PERPHENAZINE 2 MG TABLET PO SCH ×2 (08:27→17:10)
[2019-11-11] MEDS: POLYETHYLENE (MIRALAX) 17 GM PACK PO SCH (08:27)
[2019-11-11] MEDS: MAGNESIUM OXIDE 400 MG TAB PO SCH (08:27)
[2019-11-11] MEDS: POTASSIUM CHLORIDE 20 MEQ TABCR PO SCH (08:27)
[2019-11-11] MEDS: DOCUSATE SODIUM/SENNA 50/8.6MG TAB PO SCH (08:27)
--- NOTE | 2019-11-11 08:37 | Psychiatric Progress Note ---
Date of Service November 11, 2019 Impression / Recommendations Impression 74-year-old male with chronic schizophrenia who presented 10/08/2019 after he was found unresponsive at the [facility] and admitted to taking a massive, potentially lethal Tylenol overdose in an attempt to end his life. Admitted to the hospitalist service for 6 days, and transferred voluntarily to our unit on 10/14/19. He was on an involuntary 305 outpatient commitment which was converted to inpatient on 10/16/19 (expires 11/21/2019), and we are filing for a another 305 hearing scheduled for 11/17/2019, as he requires ongoing involuntary commitment, both in the hospital and then as an outpatient when he is discharged. He has had numerous medication changes: Mirtazapine and Xanax were discontinued as he reported they were ineffective. He was started on temazepam while on the hospitalist service for reports of poor sleep, and this medication appears to be effective, although he continues to report poor sleep. We will need to consider safety concerns at discharge, given his history of benzodiazepine abuse and ronic suicidality/overdose risk, as in the past he has not allowed it [facility] staff to hold his medications and insisted on keeping them in his room.he was initially placed back on ziprasidone, but reported it was ineffective and agreed to a retrial of Clozaril 10/17, however, trial was halted on 10/29 when patient demonstrated increased confusion and EPS. He refused antipsychotic medication for a week, and agreed to start a trial of perphenazine on 11/06/2019. He continues to report command auditory hallucinations and suicidal ideation. Inpatient hospitalization remains the least restrictive setting for him at this time. (1) Schizophrenia: 10/14 - Continue ziprasidone as initiated on the medical floor - resume 80mg BID dosing with meals - Continue benztropine 0.5mg as needed for reports of stiffness, though it remains unclear if this is truly related to his antipsychotic medication - Mirtazapine was discontinued on the medical floor as patient feels it had been ineffective - Continue temazepam 15mg qHS for sleep - at least while hospitalized in a supervised setting, as patient has a history of benzodiazepine abuse - Will coordinate treatment with patient's outpatient psychiatric supports - Encourage participation in group and recreational programming 10/15 -Continue ziprasidone; reviewed fasting lipid profile and fasting glucose f rom 02/2019, all values were within normal limits. -Discussed trial of clozapine; patient states that he believes he was on this medication in the past and that it was ineffective. Continue to provide education and encourage retrial, as he has had limited response to multiple other antipsychotics, and it would also help address suicidal thoughts in addition to psychosis. -Involve outpatient case investigator and coordinate with psychiatrist, Dr. Alves. 10/16 -The plan is to continue ziprasidone 80 mg twice a day. We discussed other treatment options with the patient, and he says that he is not interested in trying the various options suggested. He tends to respond in the affirmative every time he is asked whether he has ever taken a number of specific medications, and replies in each instance "it did not help." He does say, somewhat convincingly, that he took clozapine (dose unspecified and unknown by the patient) a number of years ago for "a month or 2," and that it did not help. Re-challenging the patient with clozapine may be helpful, but at present the patient indicates that he will refuse to take it. -The patient hesitates when asked about loxapine and perphenazine, but then says that he has taken both. Loxapine is not on the hospital formulary. Today, the patient says that he is not interested in trying either of these medications "again." -Today, the patient tells us that he "really does not" want to go to the [facility] ("[facility] although he had previously said that he might be interested in doing that. He adds that he does feel safer in a hospital, but feels that he would like to work towards being able to be discharged back to the community at this point. 10/17 --reconsented for retrial of Clozaril following review of CBC and EKG, patient aware to monitor constipation and sialorrhea and notify staff. will dose at hs and titrate by 25 mg nightly, repeat CBC in 1 week. 10/18--titrate Clozaril to 50 mg po qhs, Dr. Campos notified to consider EKG for repeat QTC on med combo as dose is increased, EPS apparently predates start of Clozaril and is not new, he is agreeable to add 0.5 mg Cogentin standing order as trial basis. 3 - Continue clozapine titration (now ordered for automatic titration of 25mg each evening), pt to receive 75mg tonight - Pt reports his condition remains unchanged at this time, but is aware that clozapine will need to be titrated to an effective dose range - At this time, patient maintains his desire would be for eventual discharge back to the [facility] - no longer requesting [facility] referral - He remains suicidal and continues to report head buzzing and auditory hallucinations that are overwhelming to him 10/20 - Continue clozapine titration - pt to receive 100mg tonight - Will reduce ziprasidone to 60mg BID given continued titration of clozapine and reported ineffectiveness of the medication - will order an EKG for tomorrow morning, given cross-titration putting patient at increased risk of QTc prolongation. - Ongoing discussions regarding discharge planning - Pt continues to verbalize SI and feels he cannot contract for safety outside of the hospital setting 10/21 - Clozapine to be titrated to 125mg this evening; will continue ziprasidone 60mg BID for now though can consider ongoing taper - EKG ordered this morning, and reviewed QTc 445 - Reports ongoing SI - stating he is "pretty d*mn close" to wanting to - Discharge planning meeting scheduled for tomorrow 10/22 -Discharge remaining has been postponed. -Ziprasidone was held this morning, and the patient's cognition seems to have cleared. He is fully oriented and has not shown evidence of confusion. The patient, himself, notes that his thinking does seem to be more clear than it had been. -We will further titrate clozapine 250 mg at bedtime and 25 mg in the morning. -Because of persistent disturbing auditory hallucinations that the patient reports prevent him from easily inducing and maintaining sleep we will increase his dose of temazepam from 15 mg at bedtime for sleep to a dose of 22.5 mg at bedtime as needed sleep. -Although the patient's cognition seems to have improved, staff recall that during at least 1 previous admission the patient had similar mental status alterations and a urinary tract infection was found to been contributory. For that reason, we have ordered a urinalysis. -The patient has been demonstrating a shuffling gait, and on testing today a substantial degree of cogwheel rigidity was noted. The patient also reports a feeling "jumpy" and "restless." He had been receiving benztropine 0.5 mg twice a day, and while this may have been helpful, it seems not to have been fully effective. We will try trihexyphenidyl 2 mg stat and then 2 mg twice a day, and titrate further as indicated. 10/23 - Titrate clozapine to 25mg qAM and 200mg qHS - continue to hold ziprasidone at this time - Pt continues to reports stiffness and difficulty with ambulation, given that we are continuing to titrate clozapine we will order an additional prn dose of trihexyphenidyl 2mg with consideration to schedule the dose if necessary - UA results reviewed - no indication for current UTI - Will need to continue to discuss appropriate discharge timeline - patient remains suicidal 10/24 - Given concern for confusion, EPS and parkinsonism, morning dose of clozapine was held - Will reduce patient's dose to 150mg qHS and plan for a slower titration. This dosage continues to be subtherapeutic, and patient will require advancement of dose as tolerated - Will discontinue trihexyphenidyl due to concern for urinary retention - will resume benztropine 1mg BID for ongoing stiffness and EPS - Will plan to reduce dose of temazepam to 7.5mg with a one-time repeat if necessary - Pt placed on MNPR due to ambulatory concerns, somewhat disruptive behavior related to his physical complaints, and need for close observation at this time 10/27 --resume low dose Restoril as seems more disorganized with poorer quality sleep, reviewed can impact risk of falls, ?anticholinergic side effects 10/28 --will decrease Cogentin given potential that anticholinergic side effects are worsening his cognition. 10/29 - Will discontinue clozapine at this time - allow patient to clear for a period of time and then consider resuming an antipsychotic medication as he continues to experience auditory hallucinations - Will continue Cogentin, but switch to prn - unlikely to require regularly until/unless an antipsychotic medication is resumed. Agree with concern the medication may increase risk of confusion/falls - Resumed MNPR due to behaviors associated with confusion that are not compatible with and would be disruptive to a roommate at this time 10/30 - holding off starting a different antipsychotic at this time to give time to clear from potential worsening of presentation from clozapine trial, maintained MNPR for now 10/31 plan unchanged for now, consider options to treat psychotic processes that appear ongoing so far while holding for now as potential that medication reaction adding to presentation 11/01 - Continue to hold clozapine - consider alternative antipsychotic agents to target auditory hallucinations which are ongoing - Will allow for a 7.5mg repeat dose of temazepam, as patient continues to report poor sleep. While temazepam may contribute to confusion, poor quality of sleep may be contributing as well. Pt should not receive an additional dose if he is appearing confused or if gait is unstable. - Pt continues to report suicide "it's still an option" if AH continue - he i s admitted presently to feeling as though he would seek help before acting on these thoughts - Will need to scheduled discharge planning meeting with the [facility] once patient is appropriate to participate 11/02 - Continue hold on clozapine - will plan to discuss treatment alternatives during treatment team tomorrow morning in order to provide additional time to clear after clozapine initiation. Pt reports no improvement in symptoms since admission and is agreeable with trial of medications to target his auditory hallucinations - he is specifically requesting "Valium three times a day." - Reviewed history of past antipsychotic medication trials: Zyprexa ("is a joke", restlessness, ineffective); Geodon (ineffective); Abilify (ineffective) - Pt reports desire to return to the [facility] after discharge, but continues to report SI and is not cleared for discharge at this time 11/03 - 11/04 -Patient continues to refuse all antipsychotic medication. Advised him that if he is willing for a trial of any medication in his group, to let us know, and he expressed understanding. For now continue temazepam and benztropine as needed for muscle tension. -Continue to attend participate in groups, work on healthy coping skills and discharge safety plan. 11/05 - Pt was cooperative with conversation regarding recommendation for an antipsychotic trial - patient agreeable with perphenazine. Will order 4mg daily to initiated with titration as tolerated. - Pt continues to report muscle stiffness and continues to request benztropine - given risk of true EPS with antipsychotic retrial, will continue to have this medication available as needed - Continues to report auditory hallucinations contributing to ongoing suicidality; reports he would be unsafe to leave the hospital at this time 11/06 - continue Trilafon trial, hold additional titration as hx of significant EPS when titrated too quickly. 11/07 - Titrate Trilafon to 4 mg BID (2nd dose with evening meal) 11/08 - Maintain current dosage of Trilafon - can continue cautious titration as tolerated - Pt encouraged to focus on safety planning efforts, as he is reporting some improvement in SI and voicing ultimate desire to return to the [facility] 11/09 -file for 306 hearing, to initiate another 305 involuntary commitment, as patient's current commitment will 11/21/2019. This will need to be converted to an IOC at discharge. 11/10 - Discussed titration of Trilafon to 6mg BID starting with this evening's dose - reviewed potential side effects and encouraged patient to report any concerns to staff - Ongoing discussion regarding safety plan for anticipated return to the [facility] - 306 conversion hearing to initiate another 305 is scheduled for 11/17/2019 (2) Auditory hallucinations: 10/16 -Patient's chief complaint has to do with persistent persecutory auditory hallucinations. He describes the voices as being "electronically generated," and although he tells us that he does not know the source of the electronically generated voices, he says that he has no doubt that they are real and are coming from some entity that is trying to torture and/or kill him. His explanation for the suicide attempt was not that he has been depressed, but, instead, because he feels tortured by the voices and finds that he can no longer tolerate hearing them and no longer tolerate feeling terrorized by them. Patient also explains that he would rather at his own hand than risk being murdered by unknown forces and unknown means. -The patient's condition has been largely treatment resistant to psychiatric medications. With each antipsychotic medication mentioned, the patient's response has been to assert that the specific medicine mentioned has been tried and was not effective, or has been tried and caused worsening symptoms. Today, he asserts that he has taken clozapine in the past, but that it was not effective. He has unable to identify the dose, and does not recall when or where it was prescribed, but says that he believes that he took it for "a month or 2" before it was discontinued as ineffective. Other options for the patient might be a trial of perphenazine or loxapine. For now, the patient has indicated that he would prefer to remain on Geodon 80 mg twice a day. 10/20 - Auditory hallucinations are ongoing. Pt does report that the voices are quieter, but when asked for how long he states "just now, since you asked" - Unclear how reliable patient's reports are on this topic, though it is anticipated ongoing titration of clozapine may be helpful for this 10/21 - Pt more focused on "head buzzing" today, does not mention auditory hallucinations today though this does not mean he is not experiencing them 10/22 -Today, the patient reports that he is troubled both by "a buzzing sound" in both ears, as well as by voices". He tells us that he believes that the voices are being generated by a computer and that the threats that are made through the's "voices" are genuine and represent a mortal danger. He insists that he is being told that he is going to be murdered. -I tried to talk to the patient about the fact that his records, going back many years, speak to the presence of similar perceptual disturbances and similar believes. The patient responds by saying, "they have come close to killing me a number of times. 1 of these days they are going to do it!" -We are discontinuing Geodon today and will be increasing his dose of clozapine, beginning tonight. The new dose of clozapine will be 150 mg at bedtime and 25 mg in the morning. We expect that we will need to continue to titrate. We will also reintroduce clozapine, albeit at a lower dose, should his psychiatric condition worsen. Our concern at this point is excess sedation associated with our current cross titration of Geodon and clozapine. 10/23 - Pt denies significant change from above at this time 10/24 - Ongoing, unchanged with current dose of clozapine - pt would likely require further titration of clozapine to therapeutic range; however, this titration must be balanced with concerns the medication may be causing EPS and parkinsonism - Will reduce dose of clozapine to 150mg qHS and suggest reduced pace of titration 10/28 --no change on current dose of Clozaril, will ask Dr. Dorsey to provide second opinion re: use and dose of Clozaril given course in past week. 10/29 - No change in AH at this time 11/03 -Patient continues to refuse all antipsychotic medication. Advised that if he is willing to trial any medication in this group, to let us know, and he ag heike. He often refuses medications for a time before choosing 1. 11/05 - Pt now agreeable with a trial of perphenazine to target auditory hallucinations - will start with 4mg daily and titrate as tolerated 3/23 - See treatment plan for "Schizophrenia" above (3) Benzodiazepine abuse: 10/14 - Historical diagnosis of benzodiazepine abuse - Will not continue home dose of alprazolam - but will offer temazepam 15mg qHS for sleep as it has been effective - Will need to consider the safety of this medication regimen, and may suggest discontinuation of benzodiazepines at discharge given his history - Benzodiazepines are not recommended for the patient if he would be discharged to an unsupervised setting or expected to manage his own medication administration 10/16 -The patient is history of benzodiazepine abuse is noted. That history not withstanding, at seems apparent that the only hypnotic medication that has been consistently effective for this patient has been temazepam, and there is no evidence that he has been misusing this medication in the community prior to admission. -The material risks of temazepam, including but not limited to, risk of a physical habituation, risk of complicated and possibly fatal withdrawal symptoms, risk of accidents, falls and other injuries, as well as risk of worsening depression and clouded consciousness/cognitive impairment were reviewed with the patient, and he responded by saying, "I know. But it is the only thing that works. I really need to sleep, and without it the voices keep me awake all night." 10/22 -The patient's history of benzodiazepine continues to be noted. However, the patient's current condition, we continue to feel that the use of temazepam for sleep is medically necessary and appropriate. 10/25--d/c temazepam as seems to be contributing to AMS? 11/03--temazepam 7.5 mg at bedtime was resumed 10/28/2019, and patient has continued on that dose, which appears to be helping for sleep. We will need to explore options to ensure safety with this medication at discharge; patient will be returning to the [facility], but in the past has refused to allow staff to hold his medication bottles, which would not be advisable given his substance abuse history and overdose risk. 11/05 - We have been able to confirm with the [facility] that they will hold patient's prescribed medications and distribute accordingly. This plan would reduce risk of patient returning to behaviors of benzodiazepine abuse. (4) Tylenol overdose: 10/14 - Continue management per medical team - Recheck LFTs tomorrow morning. Today, AST 70, ALT 631. 10/15 -Continue to trend down. AST 54, ALT 538. We will reorder LFTs for Saturday. Avoid hepatotoxic agents. 10/16 -Patient reports that he remains suicidal and confirms that his overdose of Tylenol was taken with the intent of causing his own . 11/08 - Focus of this particular problems has shifted toward management of schizophrenia and targeting auditory hallucinations which were reported to have been a trigger for his overdose - Consider this problem itself resolved, though we are continuing to work on safety planning efforts. (5) Hypertension: 10/14 - Home medication includes clonidine 0.1mg qHS - Will continue to monitor blood pressure with daily vitals, consider resuming 10/20 - We have continued daily blood pressures, some of which have been mildly elevated but not consistently - Given increased fatigue and concern for falls related to intermittent unsteadiness with ambulation, will continue to hold clonidine at this time 10/22 -Today, the patient's blood pressure is within normal limits. 11/08 - No active changes to this issue - blood pressure continues to be within reasonable limits despite holding home dose of clonidine - Pt can follow-up with his PCP for ongoing monitoring and management Risk Factors Assessment Male: Yes : Yes Do You Have Access To A Gun?: No Health Problems: No Mental Health Diagnoses: Yes Substance Use Disorders: Yes Previous Attempt: Yes Family History of Suicide: Yes (cousin) Previous Psychiatric Hospitalization: Yes Hopelessness: Yes Protective Factors Assessment Faith Beliefs: No : No Responsible for Young Children: No Employed: No Stable Relationships: No Supportive Family: No Good Rapport with Provider: No Interval History Identifying Information SCOTT ROBERTO is a 74-year-old M who currently lives in [place] at the [facility]. Pt has a history of schizophrenia and this is his fourth psychiatric admission to our unit in roughly the last 7 months, with one admission to [place] in that time as well. Pt was admitted on 10/14/19 12:33 on a 201 voluntary commitment after being treated on the medical floor since 10/09/2019 after an i ntentional Tylenol overdose. 306 conversion hearing was held on 10/16/2019 and his 305 IOC was converted to an inpatient commitment. Chief Complaint "Oh, things are ok." Review of Systems Notes Constitutional: reports ongoing head buzzing/ear ringing Cardiovascular: denied Respiratory: denied Gastrointestinal: denied Neurological: denied Psychiatric: denies symptoms other than stated above Total of at least 10 systems reviewed, pertinent positives as above and in HPI. Sleep Information Total Hours of Sleep: 8.25 Sleep Comments: pt on q-15 minute checks Meal Information Percent Meal Consumed - Breakfast: 100 Percent Meal Consumed - Lunch: 100 Percent Meal Consumed - Dinner: 100 Subjective Subjective Patient was seen & assessed and interval progress reviewed with treatment team. Staff report the patient continues to attend group programming. He continues to endorse auditory hallucinations. Pt has declined multiple offers by staff to go outside. Pt was seen today to assess progress since admission. He states that he is feeling "ok" at present. He states that at this time his "head buzzing" is ongoing, and continues to be frustrated with this. He states that while his suicidality is more intermittent, there are still periods in which he feels he is unable to contract for safety outside of the hospital. We discussed the barriers to patient working through his safety plan prior to this admission, to which he states "I didn't tell anyone because I wanted to ." Pt denies significant response to low-dose Trilafon at this time, but is agreeable with titrating the dose. Reviewed side effects we are monitoring for, and patient verbalized willingness to communicate any concerns with staff. Will increase dose to 6mg BID starting with this evening. Pt states sleep and appetite remain consistent. He denies other needs or concerns today. Physical Exam Psychiatric Orientation: alert and cooperative Apperance: appropriately dressed, appropriately groomed and appeared stated age Eye Contact: good eye contact Motor Behavior: steady gait and station and no abnormal motor movements Speech: normal rate/rhythm/volume of speech (brief responses to questions) Affect: + depressed affect and + flat affect; + mood not congruent with affect (appearing significantly more depressed than he reports) Mood: no depressed mood (continues to rate his mood an 8/10 and denies depression) Thought Process: goal directed thought process and + concrete thought process Thought Content: + hopelessness; no delusions (no verbalized delusional thought content) Suicidal Thoughts: denies suicidal intent (at the time of this conversation, though not consistent resolution); + reports suicidal thoughts (does admit to intermittent improvement) Pt does admit to some improvement in severity of suicidality - but remains unable at this time to contract for safety outside of the hospital setting Homicidal Thoughts: denies homicidal thoughts Hallucinations: + auditory hallucinations (ongoing head buzzing and auditory hallucinations); no visual hallucinations Cognition: attention grossly intact and language grossly intact Insight: + impaired insight Judgement: + impaired judgement Vital Signs (Past 24 Hours) Last Vital Signs Temp 36.5 C 11/11/19 06:24 Pulse 74 11/11/19 06:24 Resp 18 11/11/19 06:24 BP 129/75 11/11/19 06:24 Pulse Ox 96 10/22/19 23:30 Results & Data ([facility]) Current Inpatient Medications Current Inpatient Medications: Current Inpatient Medications Al Hydrox/Mg Hydrox/Simethicone (Maalox) 30 ml PO Q4H PRN PRN Reason: GI Upset Stop: 11/13/19 13:39 Benztropine Mesylate (Cogentin) 0.5 mg PO DAILY PRN PRN Reason: EPS/restlessness Stop: 11/29/19 11:31 Last Admin: 11/10/19 16:21 Dose: 0.5 mg Documented by: Bismuth Subsalicylate (Kaopectate) 15 ml PO PRN PRN PRN Reason: Loose Stool Stop: 11/13/19 13:39 Docusate Sodium (Colace) 100 mg PO BID [facility] Stop: 11/13/19 20:59 Last Admin: 11/11/19 08:27 Dose: 100 mg Documented by: Hydroxyzine HCl (Vistaril) 50 mg PO HSZ PRN PRN Reason: Insomnia Stop: 11/13/19 13:39 Hydroxyzine HCl (Vistaril) 25 mg PO Q4H PRN PRN Reason: Anxiety Stop: 11/13/19 13:39 Last Admin: 11/10/19 16:22 Dose: 25 mg Documented by: Magnesium Hydroxide (Milk Of Magnesia) 30 ml PO DAILY PRN PRN Reason: Constipation Stop: 11/13/19 13:39 Magnesium Oxide (Mag-Ox) 400 mg PO DAILY [facility] Stop: 11/14/19 08:59 Last Admin: 11/11/19 08:27 Dose: 400 mg Documented by: Perphenazine (Trilafon) 4 mg PO BID17 [facility] Stop: 12/08/19 16:59 Last Admin: 11/11/19 08:27 Dose: 4 mg Documented by: Polyethylene Glycol (Miralax Powder Packet) 17 gm PO DAILY MAG Stop: 11/14/19 08:59 Last Admin: 11/11/19 08:27 Dose: 17 gm Documented by: Potassium Chloride (Klor-Con M20) 20 meq PO DAILY MAG Stop: 11/14/19 08:59 Last Admin: 11/11/19 08:27 Dose: 20 meq Documented by: Senna/Docusate Sodium (Senokot S) 1 tab PO QAM MAG Stop: 11/14/19 08:59 Last Admin: 11/11/19 08:27 Dose: 1 tab Documented by: Sodium Chloride (Hyde Nasal) 1 - 2 sprays NA PRN PRN PRN Reason: Nasal Dryness/Congestion Stop: 11/13/19 13:39 Temazepam (Restoril) 7.5 mg PO HSZ MAG Stop: 11/27/19 21:59 Last Admin: 11/10/19 20:23 Dose: 7.5 mg Documented by: Mental Health & Subst Abuse Tx Psychiatrist Name of Psychiatrist: [facility] - Dr. Alves Psychiatrist's Psychiatric Appointment Comment: [address] [facility] [address], [address], [place] [address] Therapist Name of Therapist: none Cloth Shrinking Machine Operator Helper Name of Cloth Shrinking Machine Operator Helper: Shruti Mcbride Phone Number for Cloth Shrinking Machine Operator Helper: [phone] Case Management Appointment Comment: Comes to see you at the [facility] Post Discharge Appointments Primary Care Physician Name Of Family Doctor: [facility] - Dr. Jeff Lopez Primary Care Provider Appointment Comment: [address], [address], [place] [address] [facility] Caal Neurologist's Date of Appointment with Neurologist: 11/17/19 Time of Appointment with Neurologist: 11:00 a.m. Neurology Appointment Comment: [address], [place] [address] Contact Information Discharge Discharge Address: [address] [place] [address], [place] [address] Contact Information Comment: [facility] (1) Schizophrenia Schizophrenia type: paranoid schizophrenia Qualified Code(s): F20.0 - Paranoid schizophrenia (2) Hypertension Hypertension type: essential hypertension Qualified Code(s): I10 - Essential (primary) hypertension
[2019-11-11] MEDS: TEMAZEPAM 7.5 MG CAPSULE PO SCH (20:40)
[2019-11-12] MEDS: DOCUSATE SODIUM 100 MG CAP PO SCH ×2 (08:09→20:35)
[2019-11-12] MEDS: POTASSIUM CHLORIDE 20 MEQ TABCR PO SCH (08:09)
[2019-11-12] MEDS: MAGNESIUM OXIDE 400 MG TAB PO SCH (08:10)
[2019-11-12] MEDS: POLYETHYLENE (MIRALAX) 17 GM PACK PO SCH (08:11)
[2019-11-12] MEDS: PERPHENAZINE 2 MG TABLET PO SCH ×2 (08:11→17:50)
[2019-11-12] MEDS: DOCUSATE SODIUM/SENNA 50/8.6MG TAB PO SCH (08:11)
--- NOTE | 2019-11-12 09:19 | Psychiatric Progress Note ---
Date of Service November 12, 2019 Impression / Recommendations Impression 74-year-old male with chronic schizophrenia who presented 10/08/2019 after he was found unresponsive at the [facility] and admitted to taking a massive, potentially lethal Tylenol overdose in an attempt to end his life. Admitted to the hospitalist service for 6 days, and transferred voluntarily to our unit on 10/14/19. He was on an involuntary 305 outpatient commitment which was converted to inpatient on 10/16/19 (expires 11/21/2019), and we are filing for a another 305 hearing scheduled for 11/17/2019, as he requires ongoing involuntary commitment, both in the hospital and then as an outpatient when he is discharged. He has had numerous medication changes: Mirtazapine and Xanax were discontinued as he reported they were ineffective. He was started on temazepam while on the hospitalist service for reports of poor sleep, and this medication appears to be effective, although he continues to report poor sleep. We will need to consider safety concerns at discharge, given his history of benzodiazepine abuse and ch ronic suicidality/overdose risk, [facility]R staff did confirm they would hold these medications in order to reduce risk. He was initially placed back on ziprasidone, but reported it was ineffective and agreed to a retrial of Clozaril 10/17, however, trial was halted on 10/29 when patient demonstrated increased confusion and EPS. He refused antipsychotic medication for a week, and agreed to start a trial of perphenazine on 11/06/2019. He continues to report command auditory hallucinations, but denies SI as of yesterday. Inpatient hospitalization remains the least restrictive setting for him at this time. (1) Schizophrenia: 10/14 - Continue ziprasidone as initiated on the medical floor - resume 80mg BID dosing with meals - Continue benztropine 0.5mg as needed for reports of stiffness, though it remains unclear if this is truly related to his antipsychotic medication - Mirtazapine was discontinued on the medical floor as patient feels it had been ineffective - Continue temazepam 15mg qHS for sleep - at least while hospitalized in a supervised setting, as patient has a history of benzodiazepine abuse - Will coordinate treatment with patient's outpatient psychiatric supports - Encourage participation in group and recreational programming 10/15 -Continue ziprasidone; reviewed fasting lipid profile and fasting glucose from 02/2019, all values were within normal limits. -Discussed trial of clozapine; patient states that he believes he was on this medication in the past and that it was ineffective. Continue to provide education and encourage retrial, as he has had limited response to multiple other antipsychotics, and it would also help address suicidal thoughts in addition to psychosis. -Involve outpatient nurse outreach case manager and coordinate with psychiatrist, Dr. Alves. 10/16 -The plan is to continue ziprasidone 80 mg twice a day. We discussed other treatment options with the patient, and he says that he is not interested in trying the various options suggested. He tends to respond in the affirmative every time he is asked whether he has ever taken a number of specific medications, and replies in each instance "it did not help." He does say, somewhat convincingly, that he took clozapine (dose unspecified and unknown by the patient) a number of years ago for "a month or 2," and that it did not help. Re-challenging the patient with clozapine may be helpful, but at present the patient indicates that he will refuse to take it. -The patient hesitates when asked about loxapine and perphenazine, but then says that he has taken both. Loxapine is not on the hospital formulary. Today, the patient says that he is not interested in trying either of these medications "again." -Today, the patient tells us that he "really does not" want to go to the [facility] ("[facility]"), although he had previously said that he might be interested in doing that. He adds that he does feel safer in a hospital, but feels that he would like to work towards being able to be discharged back to the community at this point. 10/17 --reconsented for retrial of Clozaril following review of CBC and EKG, patient aware to monitor constipation and sialorrhea and notify staff. will dose at hs and titrate by 25 mg nightly, repeat CBC in 1 week. 10/18--titrate Clozaril to 50 mg po qhs, Dr. Campos notified to consider EKG for repeat QTC on med combo as dose is increased, EPS apparently predates start of Clozaril and is not new, he is agreeable to add 0.5 mg Cogentin standing order as trial basis. 10/19 - Continue clozapine titration (now ordered for automatic titration of 25mg each evening), pt to receive 75mg tonight - Pt reports his condition remains unchanged at this time, but is aware that clozapine will need to be titrated to an effective dose range - At this time, patient maintains his desire would be for eventual discharge back to the [facility] - no longer requesting [facility] referral - He remains suicidal and continues to report head buzzing and auditory hallucinations that are overwhelming to him 10/20 - Continue clozapine titration - pt to receive 100mg tonight - Will reduce ziprasidone to 60mg BID given continued titration of clozapine and reported ineffectiveness of the medication - will order an EKG for tomorrow morning, given cross-titration putting patient at increased risk of QTc prolongation. - Ongoing discussions regarding discharge planning - Pt continues to verbalize SI and feels he cannot contract for safety outside of the hospital setting 10/21 - Clozapine to be titrated to 125mg this evening; will continue ziprasidone 60mg BID for now though can consider ongoing taper - EKG ordered this morning, and reviewed QTc 445 - Reports ongoing SI - stating he is "pretty d*mn close" to wanting to - Discharge planning meeting scheduled for tomorrow 10/22 -Discharge remaining has been postponed. -Ziprasidone was held this morning, and the patient's cognition seems to have cleared. He is fully oriented and has not shown evidence of confusion. The patient, himself, notes that his thinking does seem to be more clear than it had been. -We will further titrate clozapine 250 mg at bedtime and 25 mg in the morning. -Because of persistent disturbing auditory hallucinations that the patient reports prevent him from easily inducing and maintaining sleep we will increase his dose of temazepam from 15 mg at bedtime for sleep to a dose of 22.5 mg at bedtime as needed sleep. -Although the patient's cognition seems to have improved, staff recall that during at least 1 previous admission the patient had similar mental status alterations and a urinary tract infection was found to been contributory. For that reason, we have ordered a urinalysis. -The patient has been demonstrating a shuffling gait, and on testing today a substantial degree of cogwheel rigidity was noted. The patient also reports a feeling "jumpy" and "restless." He had been receiving benztropine 0.5 mg twice a day, and while this may have been helpful, it seems not to have been fully effective. We will try trihexyphenidyl 2 mg stat and then 2 mg twice a day, and titrate further as indicated. 10/23 - Titrate clozapine to 25mg qAM and 200mg qHS - continue to hold ziprasidone at this time - Pt continues to reports stiffness and difficulty with ambulation, given that we are continuing to titrate clozapine we will order an additional prn dose of trihexyphenidyl 2mg with consideration to schedule the dose if necessary - UA results reviewed - no indication for current UTI - Will need to continue to discuss appropriate discharge timeline - patient remains suicidal 10/24 - Given concern for confusion, EPS and parkinsonism, morning dose of clozapine was held - Will reduce patient's dose to 150mg qHS and plan for a slower titration. This dosage continues to be subtherapeutic, and patient will require advancement of dose as tolerated - Will discontinue trihexyphenidyl due to concern for urinary retention - will resume benztropine 1mg BID for ongoing stiffness and EPS - Will plan to reduce dose of temazepam to 7.5mg with a one-time repeat if necessary - Pt placed on MNPR due to ambulatory concerns, somewhat disruptive behavior related to his physical complaints, and need for close observation at this time 10/27 --resume low dose Restoril as seems more disorganized with poorer quality sleep, reviewed can impact risk of falls, ?anticholinergic side effects 10/28 --will decrease Cogentin given potential that anticholinergic side effects are worsening his cognition. 10/29 - Will discontinue clozapine at this time - allow patient to clear for a period of time and then consider resuming an antipsychotic medication as he continues to experience auditory hallucinations - Will continue Cogentin, but switch to prn - unlikely to require regularly until/unless an antipsychotic medication is resumed. Agree with concern the medication may increase risk of confusion/falls - Resumed MNPR due to behaviors associated with confusion that are not compatible with and would be disruptive to a roommate at this time 10/30 - holding off starting a different antipsychotic at this time to give time to clear from potential worsening of presentation from clozapine trial, maintained MNPR for now 10/31 plan unchanged for now, consider options to treat psychotic processes that appear ongoing so far while holding for now as potential that medication reaction adding to presentation 11/01 - Continue to hold clozapine - consider alternative antipsychotic agents to target auditory hallucinations which are ongoing - Will allow for a 7.5mg repeat dose of temazepam, as patient continues to report poor sleep. While temazepam may contribute to confusion, poor quality of sleep may be contributing as well. Pt should not receive an additional dose if he is appearing confused or if gait is unstable. - Pt continues to report suicide "it's still an option" if AH continue - he is admitted presently to feeling as though he would seek help before acting on these thoughts - Will need to scheduled discharge planning meeting with the critical access hospital once patient is appropriate to participate 11/02 - Continue hold on clozapine - will plan to discuss treatment alternatives during treatment team tomorrow morning in order to provide additional time to clear after clozapine initiation. Pt reports no improvement in symptoms since admission and is agreeable with trial of medications to target his auditory hallucinations - he is specifically requesting "Valium three times a day." - Reviewed history of past antipsychotic medication trials: Zyprexa ("is a joke", restlessness, ineffective); Geodon (ineffective); Abilify (ineffective) - Pt reports desire to return to the [facility] after discharge, but continues to report SI and is not cleared for discharge at this time 11/03 - 11/04 -Patient continues to refuse all antipsychotic medication. Advised him that if he is willing for a trial of any medication in his group, to let us know, and he expressed understanding. For now continue temazepam and benztropine as needed for muscle tension. -Continue to attend participate in groups, work on healthy coping skills and discharge safety plan. 11/05 - Pt was cooperative with conversation regarding recommendation for an antipsychotic trial - patient agreeable with perphenazine. Will order 4mg daily to initiated with titration as tolerated. - Pt continues to report muscle stiffness and continues to request benztropine - given risk of true EPS with antipsychotic retrial, will continue to have this medication available as needed - Continues to report auditory hallucinations contributing to ongoing suicidality; reports he would be unsafe to leave the hospital at this time 11/06 - continue Trilafon trial, hold additional titration as hx of significant EPS when titrated too quickly. 11/07 - Titrate Trilafon to 4 mg BID (2nd dose with evening meal) 11/08 - Maintain current dosage of Trilafon - can continue cautious titration as tolerated - Pt encouraged to focus on safety planning efforts, as he is reporting some improvement in SI and voicing ultimate desire to return to the [facility] 11/09 -file for 306 hearing, to initiate another 305 involuntary commitment, as patient's current commitment will 11/21/2019. This will need to be converted to an IOC at discharge. 11/10 - Discussed titration of Trilafon to 6mg BID starting with this evening's dose - reviewed potential side effects and encouraged patient to report any concerns to staff - Ongoing discussion regarding safety plan for anticipated return to the [facility] - 306 conversion hearing to initiate another 305 is scheduled for 11/17/201911/11 - Continue Trilafon at 6mg BID - denies side effects related to the medication at this time - Pt denied SI yesterday - none yet this morning. He admits to feeling somewhat more positive, but states he is not yet ready for discharge - 306 hearing 11/17/2019 to extend 305 commitment (2) Auditory hallucinations: 10/16 -Patient's chief complaint has to do with persistent persecutory auditory hallucinations. He describes the voices as being "electronically generated," and although he tells us that he does not know the source of the electronically generated voices, he says that he has no doubt that they are real and are coming from some entity that is trying to torture and/or kill him. His explanation for the suicide attempt was not that he has been depressed, but, instead, because he feels tortured by the voices and finds that he can no longer tolerate hearing them and no longer tolerate feeling terrorized by them. Patient also explains that he would rather at his own hand than risk being murdered by unknown forces and unknown means. -The patient's condition has been largely treatment resistant to psychiatric medications. With each antipsychotic medication mentioned, the patient's response has been to assert that the specific medicine mentioned has been tried and was not effective, or has been tried and caused worsening symptoms. Today, he asserts that he has taken clozapine in the past, but that it was not eff ective. He has unable to identify the dose, and does not recall when or where it was prescribed, but says that he believes that he took it for "a month or 2" before it was discontinued as ineffective. Other options for the patient might be a trial of perphenazine or loxapine. For now, the patient has indicated that he would prefer to remain on Geodon 80 mg twice a day. 10/20 - Auditory hallucinations are ongoing. Pt does report that the voices are quieter, but when asked for how long he states "just now, since you asked" - Unclear how reliable patient's reports are on this topic, though it is anticipated ongoing titration of clozapine may be helpful for this 10/21 - Pt more focused on "head buzzing" today, does not mention auditory hallucinations today though this does not mean he is not experiencing them 10/22 -Today, the patient reports that he is troubled both by "a buzzing sound" in both ears, as well as by voices". He tells us that he believes that the voices are being generated by a computer and that the threats that are made through the's "voices" are genuine and represent a mortal danger. He insists that he is being told that he is going to be murdered. -I tried to talk to the patient about the fact that his records, going back many years, speak to the presence of similar perceptual disturbances and similar believes. The patient responds by saying, "they have come close to killing me a number of times. 1 of these days they are going to do it!" -We are discontinuing Geodon today and will be increasing his dose of clozapine, beginning tonight. The new dose of clozapine will be 150 mg at bedtime and 25 mg in the morning. We expect that we will need to continue to titrate. We will also reintroduce clozapine, albeit at a lower dose, should his psychiatric condition worsen. Our concern at this point is excess sedation associated with our current cross titration of Geodon and clozapine. 10/23 - Pt denies significant change from above at this time 10/24 - Ongoing, unchanged with current dose of clozapine - pt would likely require further titration of clozapine to therapeutic range; however, this titration must be balanced with concerns the medication may be causing EPS and parkinsonism - Will reduce dose of clozapine to 150mg qHS and suggest reduced pace of titration 10/28 --no change on current dose of Clozaril, will ask Dr. Dorsey to provide second opinion re: use and dose of Clozaril given course in past week. 10/29 - No change in AH at this time 11/03 -Patient continues to refuse all antipsychotic medication. Advised that if he is willing to trial any medication in this group, to let us know, and he agreed. He often refuses medications for a time before choosing 1. 11/05 - Pt now agreeable with a trial of perphenazine to target auditory hallucinations - will start with 4mg daily and titrate as tolerated 11/08 - See treatment plan for "Schizophrenia" above (3) Benzodiazepine abuse: 10/14 - Historical diagnosis of benzodiazepine abuse - Will not continue home dose of alprazolam - but will offer temazepam 15mg qHS for sleep as it has been effective - Will need to consider the safety of this medication regimen, and may suggest discontinuation of benzodiazepines at discharge given his history - Benzodiazepines are not recommended for the patient if he would be discharged to an unsupervised setting or expected to manage his own medication administration 10/16 -The patient is history of benzodiazepine abuse is noted. That history not withstanding, at seems apparent that the only hypnotic medication that has been consistently effective for this patient has been temazepam, and there is no evidence that he has been misusing this medication in the community prior to a dmission. -The material risks of temazepam, including but not limited to, risk of a physical habituation, risk of complicated and possibly fatal withdrawal symptoms, risk of accidents, falls and other injuries, as well as risk of worsening depression and clouded consciousness/cognitive impairment were reviewed with the patient, and he responded by saying, "I know. But it is the only thing that works. I really need to sleep, and without it the voices keep me awake all night." 10/22 -The patient's history of benzodiazepine continues to be noted. However, the patient's current condition, we continue to feel that the use of temazepam for sleep is medically necessary and appropriate. 10/25--d/c temazepam as seems to be contributing to AMS? 11/03--temazepam 7.5 mg at bedtime was resumed 10/28/2019, and patient has continued on that dose, which appears to be helping for sleep. We will need to explore options to ensure safety with this medication at discharge; patient will be returning to the [facility], but in the past has refused to allow staff to hold his medication bottles, which would not be advisable given his substance abuse history and overdose risk. 11/05 - We have been able to confirm with the [facility] that they will hold patient's prescribed medications and distribute accordingly. This plan would reduce risk of patient returning to behaviors of benzodiazepine abuse. (4) Tylenol overdose: 10/14 - Continue management per medical team - Recheck LFTs tomorrow morning. Today, AST 70, ALT 631. 10/15 -Continue to trend down. AST 54, ALT 538. We will reorder LFTs for Saturday. Avoid hepatotoxic agents. 10/16 -Patient reports that he remains suicidal and confirms that his overdose of Tylenol was taken with the intent of causing his own . 11/08 - Focus of this particular problems has shifted toward management of schizophrenia and targeting auditory hallucinations which were reported to have been a trigger for his overdose - Consider this problem itself resolved, though we are continuing to work on safety planning efforts. (5) Hypertension: 10/14 - Home medication includes clonidine 0.1mg qHS - Will continue to monitor blood pressure with daily vitals, consider resuming 10/20 - We have continued daily blood pressures, some of which have been mildly elevated but not consistently - Given increased fatigue and concern for falls related to intermittent unsteadiness with ambulation, will continue to hold clonidine at this time 10/22 -Today, the patient's blood pressure is within normal limits. 11/08 - No active changes to this issue - blood pressure continues to be within reasonable limits despite holding home dose of clonidine - Pt can follow-up with his PCP for ongoing monitoring and management Risk Factors Assessment Male: Yes : Yes Do You Have Access To A Gun?: No Health Problems: No Mental Health Diagnoses: Yes Substance Use Disorders: Yes Previous Attempt: Yes Family History of Suicide: Yes (cousin) Previous Psychiatric Hospitalization: Yes Hopelessness: Yes Protective Factors Assessment Islam Beliefs: No : No Responsible for Young Children: No Employed: No Stable Relationships: No Supportive Family: No Good Rapport with Provider: No Interval History Identifying Information SCOTT ROBERTO is a 74-year-old M who currently lives in [place] at the [facility]. Pt has a history of schizophrenia and this is his fourth psychiatric admission to our unit in roughly the last 7 months, with one admission to [facility] in that time as well. Pt was admitted on 10/14/19 12:33 on a 201 voluntary commitment after being treated on the medical floor since 10/09/2019 after an intentional Tylenol overdose. 306 conversion hearing was held on 10/16/2019 and his 305 IOC was converted to an inpatient commitment. Chief Complaint "Um, I don't know. There's not much to do here." Review of Systems Notes Constitutional: denied Cardiovascular: denied Respiratory: denied Gastrointestinal: denied Neurological: denied Psychiatric: denies symptoms other than stated above Total of at least 10 systems reviewed, pertinent positives as above and in HPI. Sleep Information Total Hours of Sleep: 8 Sleep Comments: pt on q-15 minute checks Meal Information Percent Meal Consumed - Breakfast: 100 Percent Meal Consumed - Lunch: 100 Percent Meal Consumed - Dinner: 100 Subjective Subjective Patient was seen & assessed and interval progress reviewed with nursing and social work. Staff report the patient has continued to participate more appropriately in group programming, interacting more with peers. Pt has demonstrated a somewhat brighter affect. Pt was seen today to assess progress since admission. Pt states he is "ok", but states "there's not much to do here." Pt does demonstrate a timid smile as he informs this provider that he has not had suicidal thoughts in about 24 hours. He states that he is not having "negative thoughts, but they're not really positive either." He does admit to increased hopefulness at this time. When asked about how he believes he would function outside of the hospital, he states "I think I'd be ok. But I still need a few more days." Pt was asked about his thoughts on a discharge timeline, to which he responded [id number] with "8 days." Pt was reminded of his 306 hearing on 11/16 and he denied any questions. Pt denied other needs or concerns from staff at this time. Physical Exam Psychiatric Orientation: alert and cooperative Apperance: appropriately dressed, appropriately groomed and appeared stated age Eye Contact: good eye contact Motor Behavior: steady gait and station and no abnormal motor movements Speech: normal rate/rhythm/volume of speech (brief responses to questions) Affect: + flat affect (does smile intermittently) Mood: no depressed mood ("Ok") Thought Process: goal directed thought process and + concrete thought process Thought Content: + hopelessness (but is somewhat more optimistic today); no delusions (does not verbalize any delusional thought content) Suicidal Thoughts: denies suicidal thoughts (denies SI for ~24 hours) and denies suicidal intent Homicidal Thoughts: denies homicidal thoughts Hallucinations: + auditory hallucinations (does admit to ongoing "voices"); no visual hallucinations Cognition: attention grossly intact and language grossly intact Insight: + limited insight Judgement: + limited judgement Vital Signs (Past 24 Hours) Last Vital Signs Temp 36.7 C 11/12/19 06:53 Pulse 78 11/12/19 06:54 Resp 18 11/12/19 06:53 BP 116/67 11/12/19 06:54 Pulse Ox 96 10/22/19 23:30 Results & Data ([facility]) Current Inpatient Medications Current Inpatient Medications: Current Inpatient Medications Al Hydrox/Mg Hydrox/Simethicone (Maalox) 30 ml PO Q4H PRN PRN Reason: GI Upset Stop: 11/13/19 13:39 Benztropine Mesylate (Cogentin) 0.5 mg PO DAILY PRN PRN Reason: EPS/restlessness Stop: 11/29/19 11:31 Last Admin: 11/10/19 16:21 Dose: 0.5 mg Documented by: Bismuth Subsalicylate (Kaopectate) 15 ml PO PRN PRN PRN Reason: Loose Stool Stop: 11/13/19 13:39 Docusate Sodium (Colace) 100 mg PO BID [facility] Stop: 11/13/19 20:59 Last Admin: 11/12/19 08:09 Dose: 100 mg Documented by: Hydroxyzine HCl (Vistaril) 50 mg PO HSZ PRN PRN Reason: Insomnia Stop: 11/13/19 13:39 Hydroxyzine HCl (Vistaril) 25 mg PO Q4H PRN PRN Reason: Anxiety Stop: 11/13/19 13:39 Last Admin: 11/10/19 16:22 Dose: 25 mg Documented by: Magnesium Hydroxide (Milk Of Magnesia) 30 ml PO DAILY PRN PRN Reason: Constipation Stop: 11/13/19 13:39 Magnesium Oxide (Mag-Ox) 400 mg PO DAILY [facility] Stop: 11/14/19 08:59 Last Admin: 11/12/19 08:10 Dose: 400 mg Documented by: Perphenazine (Trilafon) 6 mg PO BID17 [facility] Stop: 12/11/19 16:59 Last Admin: 11/12/19 08:11 Dose: 6 mg Documented by: Polyethylene Glycol (Miralax Powder Packet) 17 gm PO DAILY MAG Stop: 11/14/19 08:59 Last Admin: 11/12/19 08:11 Dose: Not Given Documented by: Potassium Chloride (Klor-Con M20) 20 meq PO DAILY MAG Stop: 11/14/19 08:59 Last Admin: 11/12/19 08:09 Dose: 20 meq Documented by: Senna/Docusate Sodium (Senokot S) 1 tab PO QAM MAG Stop: 11/14/19 08:59 Last Admin: 11/12/19 08:11 Dose: 1 tab Documented by: Sodium Chloride ([place] Nasal) 1 - 2 sprays NA PRN PRN PRN Reason: Nasal Dryness/Congestion Stop: 11/13/19 13:39 Temazepam (Restoril) 7.5 mg PO HSZ MAG Stop: 11/27/19 21:59 Last Admin: 11/11/19 20:40 Dose: 7.5 mg Documented by: Mental Health & Subst Abuse Tx Psychiatrist Name of Psychiatrist: [facility] - Dr. Alves Psychiatrist's Psychiatric Appointment Comment: [address], [facility] [address], [address], [place] [address] Therapist Name of Therapist: none Roll Off Driver Name of Roll Off Driver: Shruti Mcbride Phone Number for Roll Off Driver: [phone] Case Management Appointment Comment: Comes to see you at the [facility] Post Discharge Appointments Primary Care Physician Name Of Family Doctor: [facility] - Dr. Jeff Lopez Primary Care Provider Appointment Comment: [address], [address], [place] [address] Neurologist Name of Neurologist: [facility] - Dr. Caal Neurologist's Date of Appointment with Neurologist: 02/02/20 Time of Appointment with Neurologist: 10:00 a.m. Neurology Appointment Comment: [address], [place] [address] Contact Information Discharge Discharge Address: [address] [place] [address], [place] [address] Contact Information Comment: [facility] (1) Schizophrenia Schizophrenia type: paranoid schizophrenia Qualified Code(s): F20.0 - Paran oid schizophrenia (2) Hypertension Hypertension type: essential hypertension Qualified Code(s): I10 - Essential (primary) hypertension
[2019-11-12] MEDS: TEMAZEPAM 7.5 MG CAPSULE PO SCH (20:35)
[2019-11-13] MEDS: DOCUSATE SODIUM 100 MG CAP PO SCH (08:23)
[2019-11-13] MEDS: POTASSIUM CHLORIDE 20 MEQ TABCR PO SCH (08:24)
[2019-11-13] MEDS: MAGNESIUM OXIDE 400 MG TAB PO SCH (08:24)
[2019-11-13] MEDS: DOCUSATE SODIUM/SENNA 50/8.6MG TAB PO SCH (08:25)
[2019-11-13] MEDS: POLYETHYLENE (MIRALAX) 17 GM PACK PO SCH (08:25)
[2019-11-13] MEDS: PERPHENAZINE 2 MG TABLET PO SCH ×2 (08:25→16:37)
--- NOTE | 2019-11-13 09:06 | Psychiatric Progress Note ---
Date of Service November 13, 2019 Impression / Recommendations Impression 74-year-old male with chronic schizophrenia who presented 10/08/2019 after he was found unresponsive at the [facility] and admitted to taking a massive, potentially lethal Tylenol overdose in an attempt to end his life. Admitted to the hospitalist service for 6 days, and transferred voluntarily to our unit on 10/14/19. He was on an involuntary 305 outpatient commitment which was converted to inpatient on 10/16/19 (expires 11/21/2019), and we are filing for a another 305 hearing scheduled for 11/17/2019, as he requires ongoing involuntary commitment, both in the hospital and then as an outpatient when he is discharged. He has had numerous medication changes: Mirtazapine and Xanax were discontinued as he reported they were ineffective. He was started on temazepam while on the hospitalist service for reports of poor sleep, and this medication appears to be effective, although he continues to report poor sleep. We will need to consider safety concerns at discharge, given his history of benzodiazepine abuse and ch ronic suicidality/overdose risk, [facility]R staff did confirm they would hold these medications in order to reduce risk. He was initially placed back on ziprasidone, but reported it was ineffective and agreed to a retrial of Clozaril 10/17, however, trial was halted on 10/29 when patient demonstrated increased confusion and EPS. He refused antipsychotic medication for a week, and agreed to start a trial of perphenazine on 11/06/2019. He continues to report command auditory hallucinations though does admit the voices are "quieter", he has denied SI for 2 days. Inpatient hospitalization remains the least restrictive setting for him at this time, he will still require that outpatient services be coordinated as we get closer to anticipated discharge. (1) Schizophrenia: 10/14 - Continue ziprasidone as initiated on the medical floor - resume 80mg BID dosing with meals - Continue benztropine 0.5mg as needed for reports of stiffness, though it remains unclear if this is truly related to his antipsychotic medication - Mirtazapine was discontinued on the medical floor as patient feels it had been ineffective - Continue temazepam 15mg qHS for sleep - at least while hospitalized in a supervised setting, as patient has a history of benzodiazepine abuse - Will coordinate treatment with patient's outpatient psychiatric supports - Encourage participation in group and recreational programming 10/15 -Continue ziprasidone; reviewed fasting lipid profile and fasting glucose from 02/2019, all values were within normal limits. -Discussed trial of clozapine; patient states that he believes he was on this medication in the past and that it was ineffective. Continue to provide education and encourage retrial, as he has had limited response to multiple other antipsychotics, and it would also help address suicidal thoughts in addition to psychosis. -Involve outpatient foster care case manager and coordinate with psychiatrist, Dr. Alves. 10/16 -The plan is to continue ziprasidone 80 mg twice a day. We discussed other treatment options with the patient, and he says that he is not interested in trying the various options suggested. He tends to respond in the affirmative every time he is asked whether he has ever taken a number of specific medications, and replies in each instance "it did not help." He does say, somewhat convincingly, that he took clozapine (dose unspecified and unknown by the patient) a number of years ago for "a month or 2," and that it did not help. Re-challenging the patient with clozapine may be helpful, but at present the p atient indicates that he will refuse to take it. -The patient hesitates when asked about loxapine and perphenazine, but then says that he has taken both. Loxapine is not on the hospital formulary. Today, the patient says that he is not interested in trying either of these medications "again." -Today, the patient tells us that he "really does not" want to go to the [facility] ("[facility]"), although he had previously said that he might be interested in doing that. He adds that he does feel safer in a hospital, but feels that he would like to work towards being able to be discharged back to the community at this point. 10/17 --reconsented for retrial of Clozaril following review of CBC and EKG, patient aware to monitor constipation and sialorrhea and notify staff. will dose at hs and titrate by 25 mg nightly, repeat CBC in 1 week. 10/18--titrate Clozaril to 50 mg po qhs, Dr. Campos notified to consider EKG for repeat QTC on med combo as dose is increased, EPS apparently predates start of Clozaril and is not new, he is agreeable to add 0.5 mg Cogentin standing order as trial basis. 10/19 - Continue clozapine titration (now ordered for automatic titration of 25mg each evening), pt to receive 75mg tonight - Pt reports his condition remains unchanged at this time, but is aware that clozapine will need to be titrated to an effective dose range - At this time, patient maintains his desire would be for eventual discharge back to the [facility] - no longer requesting [facility] referral - He remains suicidal and continues to report head buzzing and auditory hallucinations that are overwhelming to him 10/20 - Continue clozapine titration - pt to receive 100mg tonight - Will reduce ziprasidone to 60mg BID given continued titration of clozapine and reported ineffectiveness of the medication - will order an EKG for tomorrow morning, given cross-titration putting patient at increased risk of QTc prolongation. - Ongoing discussions regarding discharge planning - Pt continues to verbalize SI and feels he cannot contract for safety outside of the hospital setting 10/21 - Clozapine to be titrated to 125mg this evening; will continue ziprasidone 60mg BID for now though can consider ongoing taper - EKG ordered this morning, and reviewed QTc 445 - Reports ongoing SI - stating he is "pretty d*mn close" to wanting to - Discharge planning meeting scheduled for tomorrow 10/22 -Discharge remaining has been postponed. -Ziprasidone was held this morning, and the patient's cognition seems to have cleared. He is fully oriented and has not shown evidence of confusion. The patient, himself, notes that his thinking does seem to be more clear than it had been. -We will further titrate clozapine 250 mg at bedtime and 25 mg in the morning. -Because of persistent disturbing auditory hallucinations that the patient reports prevent him from easily inducing and maintaining sleep we will increase his dose of temazepam from 15 mg at bedtime for sleep to a dose of 22.5 mg at bedtime as needed sleep. -Although the patient's cognition seems to have improved, staff recall that during at least 1 previous admission the patient had similar mental status alterations and a urinary tract infection was found to been contributory. For that reason, we have ordered a urinalysis. -The patient has been demonstrating a shuffling gait, and on testing today a substantial degree of cogwheel rigidity was noted. The patient also reports a feeling "jumpy" and "restless." He had been receiving benztropine 0.5 mg twice a day, and while this may have been helpful, it seems not to have been fully effective. We will try trihexyphenidyl 2 mg stat and then 2 mg twice a day, and titrate further as indicated. 10/23 - Titrate clozapine to 25mg qAM and 200mg qHS - continue to hold ziprasidone at this time - Pt continues to reports stiffness and difficulty with ambulation, given that we are continuing to titrate clozapine we will order an additional prn dose of trihexyphenidyl 2mg with consideration to schedule the dose if necessary - UA results reviewed - no indication for current UTI - Will need to continue to discuss appropriate discharge timeline - patient remains suicidal 10/24 - Given concern for confusion, EPS and parkinsonism, morning dose of clozapine was held - Will reduce patient's dose to 150mg qHS and plan for a slower titration. This dosage continues to be subtherapeutic, and patient will require advancement of dose as tolerated - Will discontinue trihexyphenidyl due to concern for urinary retention - will resume benztropine 1mg BID for ongoing stiffness and EPS - Will plan to reduce dose of temazepam to 7.5mg with a one-time repeat if necessary - Pt placed on MNPR due to ambulatory concerns, somewhat disruptive behavior related to his physical complaints, and need for close observation at this time 10/27 --resume low dose Restoril as seems more disorganized with poorer quality sleep, reviewed can impact risk of falls, ?anticholinergic side effects 10/28 --will decrease Cogentin given potential that anticholinergic side effects are worsening his cognition. 10/29 - Will discontinue clozapine at this time - allow patient to clear for a candida od of time and then consider resuming an antipsychotic medication as he continues to experience auditory hallucinations - Will continue Cogentin, but switch to prn - unlikely to require regularly until/unless an antipsychotic medication is resumed. Agree with concern the medication may increase risk of confusion/falls - Resumed MNPR due to behaviors associated with confusion that are not compat ible with and would be disruptive to a roommate at this time 10/30 - holding off starting a different antipsychotic at this time to give time to clear from potential worsening of presentation from clozapine trial, maintained MNPR for now 10/31 plan unchanged for now, consider options to treat psychotic processes that appear ongoing so far while holding for now as potential that medication reaction adding to presentation 11/01 - Continue to hold clozapine - consider alternative antipsychotic agents to target auditory hallucinations which are ongoing - Will allow for a 7.5mg repeat dose of temazepam, as patient continues to report poor sleep. While temazepam may contribute to confusion, poor quality of sleep may be contributing as well. Pt should not receive an additional dose if he is appearing confused or if gait is unstable. - Pt continues to report suicide "it's still an option" if AH continue - he is admitted presently to feeling as though he would seek help before acting on these thoughts - Will need to scheduled discharge planning meeting with the [facility] once patient is appropriate to participate 11/02 - Continue hold on clozapine - will plan to discuss treatment alternatives during treatment team tomorrow morning in order to provide additional time to clear after clozapine initiation. Pt reports no improvement in symptoms since admission and is agreeable with trial of medications to target his auditory hallucinations - he is specifically requesting "Valium three times a day." - Reviewed history of past antipsychotic medication trials: Zyprexa ("is a joke", restlessness, ineffective); Geodon (ineffective); Abilify (ineffective) - Pt reports desire to return to the [facility] after discharge, but continues to report SI and is not cleared for discharge at this time 11/03 - 11/04 -Patient continues to refuse all antipsychotic medication. Advised him that if he is willing for a trial of any medication in his group, to let us know, and he expressed understanding. For now continue temazepam and benztropine as needed for muscle tension. -Continue to attend participate in groups, work on healthy coping skills and discharge safety plan. 11/05 - Pt was cooperative with conversation regarding recommendation for an antipsychotic trial - patient agreeable with perphenazine. Will order 4mg daily to initiated with titration as tolerated. - Pt continues to report muscle stiffness and continues to request benztropine - given risk of true EPS with antipsychotic retrial, will continue to have this medication available as needed - Continues to report auditory hallucinations contributing to ongoing suicidality; reports he would be unsafe to leave the hospital at this time 11/06 - continue Trilafon trial, hold additional titration as hx of significant EPS when titrated too quickly. 11/07 - Titrate Trilafon to 4 mg BID (2nd dose with evening meal) 11/08 - Maintain current dosage of Trilafon - can continue cautious titration as tolerated - Pt encouraged to focus on safety planning efforts, as he is reporting some improvement in SI and voicing ultimate desire to return to the [facility] 11/09 -file for 306 hearing, to initiate another 305 involuntary commitment, as patient's current commitment will 11/21/2019. This will need to be converted to an IOC at discharge. 11/10 - Discussed titration of Trilafon to 6mg BID starting with this evening's dose - reviewed potential side effects and encouraged patient to report any concerns to staff - Ongoing discussion regarding safety plan for anticipated return to the [facility] - 306 conversion hearing to initiate another 305 is scheduled for 11/17/201911/11 - Continue Trilafon at 6mg BID - denies side effects related to the medication at this time - Pt denied SI yesterday - none yet this morning. He admits to feeling somewhat more positive, but states he is not yet ready for discharge - 306 hearing 11/17/2019 to extend 305 commitment 11/12 - Continue Trilafon 6mg BID - continue further titration as indicated/tolerated, watching for EPS - Pt continues to deny SI, ongoing attempts to engage patient in conversations regarding safety planning - Hearing for extension of 305 commitment - Pt has been offered daily to be escorted outside by staff, patient has consistently declined due to temperature (2) Auditory hallucinations: 10/16 -Patient's chief complaint has to do with persistent persecutory auditory hallucinations. He describes the voices as being "electronically generated," and although he tells us that he does not know the source of the electronically generated voices, he says that he has no doubt that they are real and are coming from some entity that is trying to torture and/or kill him. His explanation for the suicide attempt was not that he has been depressed, but, instead, because he feels tortured by the voices and finds that he can no longer tolerate hearing them and no longer tolerate feeling terrorized by them. Patient also explains that he would rather at his own hand than risk being murdered by unknown forces and unknown means. -The patient's condition has been largely treatment resistant to psychiatric medications. With each antipsychotic medication mentioned, the patient's response has been to assert that the specific medicine mentioned has been tried and was not effective, or has been tried and caused worsening symptoms. Today, he asserts that he has taken clozapine in the past, but that it was not effective. He has unable to identify the dose, and does not recall when or where it was prescribed, but says that he believes that he took it for "a month or 2" before it was discontinued as ineffective. Other options for the patient might be a trial of perphenazine or loxapine. For now, the patient has indicated that he would prefer to remain on Geodon 80 mg twice a day. 3/ - Auditory hallucinations are ongoing. Pt does report that the voices are quieter, but when asked for how long he states "just now, since you asked" - Unclear how reliable patient's reports are on this topic, though it is anticipated ongoing titration of clozapine may be helpful for this 3 - Pt more focused on "head buzzing" today, does not mention auditory hallucinations today though this does not mean he is not experiencing them 36 -Today, the patient reports that he is troubled both by "a buzzing sound" in both ears, as well as by voices". He tells us that he believes that the voices are being generated by a computer and that the threats that are made through the's "voices" are genuine and represent a mortal danger. He insists that he is being told that he is going to be murdered. -I tried to talk to the patient about the fact that his records, going back many years, speak to the presence of similar perceptual disturbances and similar believes. The patient responds by saying, "they have come close to killing me a number of times. 1 of these days they are going to do it!" -We are discontinuing Geodon today and will be increasing his dose of clozapine, beginning tonight. The new dose of clozapine will be 150 mg at bedtime and 25 mg in the morning. We expect that we will need to continue to titrate. We will also reintroduce clozapine, albeit at a lower dose, should his psychiatric condition worsen. Our concern at this point is excess sedation associated with our current cross titration of Geodon and clozapine. 3 - Pt denies significant change from above at this time 10/24 - Ongoing, unchanged with current dose of clozapine - pt would likely require further titration of clozapine to therapeutic range; however, this titration must be balanced with concerns the medication may be causing EPS and parkinsonism - Will reduce dose of clozapine to 150mg qHS and suggest reduced pace of titration 10/28 --no change on current dose of Clozaril, will ask Dr. oDrsey to provide second opinion re: use and dose of Clozaril given course in past week. 10/29 - No change in AH at this time 11/03 -Patient continues to refuse all antipsychotic medication. Advised that if he is willing to trial any medication in this group, to let us know, and he agreed. He often refuses medications for a time before choosing 1. 11/05 - Pt now agreeable with a trial of perphenazine to target auditory hallucinations - will start with 4mg daily and titrate as tolerated 11/08 - See treatment plan for "Schizophrenia" above (3) Benzodiazepine abuse: 10/14 - Historical diagnosis of benzodiazepine abuse - Will not continue home dose of alprazolam - but will offer temazepam 15mg qHS for sleep as it has been effective - Will need to consider the safety of this medication regimen, and may suggest discontinuation of benzodiazepines at discharge given his history - Benzodiazepines are not recommended for the patient if he would be discharged to an unsupervised setting or expected to manage his own medication administration 10/16 -The patient is history of benzodiazepine abuse is noted. That history not withstanding, at seems apparent that the only hypnotic medication that has been consistently effective for this patient has been temazepam, and there is no evidence that he has been misusing this medication in the community prior to admission. -The material risks of temazepam, including but not limited to, risk of a ph ysical habituation, risk of complicated and possibly fatal withdrawal symptoms, risk of accidents, falls and other injuries, as well as risk of worsening depression and clouded consciousness/cognitive impairment were reviewed with the patient, and he responded by saying, "I know. But it is the only thing that works. I really need to sleep, and without it the voices keep me awake all night." 10/22 -The patient's history of benzodiazepine continues to be noted. However, the patient's current condition, we continue to feel that the use of temazepam for sleep is medically necessary and appropriate. 10/25--d/c temazepam as seems to be contributing to AMS? 11/03--temazepam 7.5 mg at bedtime was resumed 10/28/2019, and patient has continued on that dose, which appears to be helping for sleep. We will need to explore options to ensure safety with this medication at discharge; patient will be returning to the [facility], but in the past has refused to allow staff to hold his medication bottles, which would not be advisable given his substance abuse history and overdose risk. 11/05 - We have been able to confirm with the [facility] that they will hold patient's prescribed medications and distribute accordingly. This plan would reduce risk of patient returning to behaviors of benzodiazepine abuse. (4) Tylenol overdose: 10/14 - Continue management per medical team - Recheck LFTs tomorrow morning. Today, AST 70, ALT 631. 10/15 -Continue to trend down. AST 54, ALT 538. We will reorder LFTs for Saturday. Avoid hepatotoxic agents. 10/16 -Patient reports that he remains suicidal and confirms that his overdose of Tylenol was taken with the intent of causing his own . 11/08 - Focus of this particular problems has shifted toward management of schizophrenia and targeting auditory hallucinations which were reported to have been a trigger for his overdose - Consider this problem itself resolved, though we are continuing to work on safety planning efforts. (5) Hypertension: 10/14 - Home medication includes clonidine 0.1mg qHS - Will continue to monitor blood pressure with daily vitals, consider resuming 10/20 - We have continued daily blood pressures, some of which have been mildly elevated but not consistently - Given increased fatigue and concern for falls related to intermittent unste adiness with ambulation, will continue to hold clonidine at this time 10/22 -Today, the patient's blood pressure is within normal limits. 11/08 - No active changes to this issue - blood pressure continues to be within reasonable limits despite holding home dose of clonidine - Pt can follow-up with his PCP for ongoing monitoring and management Risk Factors Assessment Male: Yes : Yes Do You Have Access To A Gun?: No Health Problems: No Mental Health Diagnoses: Yes Substance Use Disorders: Yes Previous Attempt: Yes Family History of Suicide: Yes (cousin) Previous Psychiatric Hospitalization: Yes Hopelessness: Yes Protective Factors Assessment Bahai Beliefs: No : No Responsible for Young Children: No Employed: No Stable Relationships: No Supportive Family: No Good Rapport with Provider: No Interval History Identifying Information SCOTT ROBERTO is a 74-year-old M who currently lives in [place] at the [facility]. Pt has a history of schizophrenia and this is his fourth psychiatric admission to our unit in roughly the last 7 months, with one admission to [place] in that time as well. Pt was admitted on 10/14/19 12:33 on a 201 voluntary commitment after being treated on the medical floor since 10/09/2019 after an intentional Tylenol overdose. 306 conversion hearing was held on 10/16/2019 and his 305 IOC was converted to an inpatient commitment. Chief Complaint "Oh, ok. There's not much going on." Review of Systems Notes Constitutional: denied Cardiovascular: denied Respiratory: denied Gastrointestinal: denied Neurological: denied Psychiatric: denies symptoms other than stated above Total of at least 10 systems reviewed, pertinent positives as above and in HPI. Sleep Information Total Hours of Sleep: 7.5 Sleep Comments: pt on q-15 minute checks Meal Information Percent Meal Consumed - Breakfast: 100 Percent Meal Consumed - Lunch: 100 Percent Meal Consumed - Dinner: 100 Subjective Subjective Patient was seen & assessed and interval progress reviewed with treatment team. Staff report the patient continues to interact appropriately with staff, and has been more spontaneous with peers. Pt was seen today to assess progress since admission. He states that he is feeling "ok", but admits that he is "bored" with "not much going on." We reviewed patient's usual routine at the [facility], which included frequent walks to the library. Pt states "but now all of that is shut down." We discussed how patient felt he would be able to cope with the restrictions and closures associated with the coronavirus he did state "it will be miserable", but denied feeling as though this would contribute to him being unsafe outside of the hospital. Pt states that his suicidal thoughts are "gone", denying SI for the past 2 days. He admits to ongoing auditory hallucinations, but does admit they are "quieter" at this time. He denies any physical concerns at this time. We discussed estimated length of stay from treatment team this morning. Pt was agreeable stating he feels he may be ready for discharge within that timeline. Sleep and appetite continue to be consistent. He denies other needs or concerns today. Physical Exam Psychiatric Orientation: alert and cooperative (superficial, but pleasant) Apperance: appropriately dressed and appropriately groomed Eye Contact: good eye contact Motor Behavior: steady gait and station and no abnormal motor movements Speech: normal rate/rhythm/volume of speech (brief responses to questions) Affect: + blunted affect (mildly, but increasingly brighter) Mood: no depressed mood Thought Process: goal directed thought process and + concrete thought process Thought Content: not paranoid, no delusions (does not verbalize any overtly delusional thought content ) and no hopelessness Suicidal Thoughts: denies suicidal thoughts ("they're gone") and denies suicidal intent Homicidal Thoughts: denies homicidal thoughts Hallucinations: + auditory hallucinations (ongoing "voices", but admits they are "quieter"); no visual hallucinations Cognition: attention grossly intact and language grossly intact Insight: + limited insight (overall) Judgement: + limited judgement (overall) Vital Signs (Past 24 Hours) Last Vital Signs Temp 36.4 C L 11/13/19 06:47 Pulse 78 11/13/19 06:47 Resp 18 11/13/19 06:47 BP 138/67 11/13/19 06:47 Pulse Ox 96 10/22/19 23:30 Results & Data ([facility]) Current Inpatient Medications Current Inpatient Medications: Current Inpatient Medications Al Hydrox/Mg Hydrox/Simethicone (Maalox) 30 ml PO Q4H PRN PRN Reason: GI Upset Stop: 11/13/19 13:39 Benztropine Mesylate (Cogentin) 0.5 mg PO DAILY PRN PRN Reason: EPS/restlessness Stop: 11/29/19 11:31 Last Admin: 11/10/19 16:21 Dose: 0.5 mg Documented by: Bismuth Subsalicylate (Kaopectate) 15 ml PO PRN PRN PRN Reason: Loose Stool Stop: 11/13/19 13:39 Docusate Sodium (Colace) 100 mg PO BID MAG Stop: 11/13/19 20:59 Last Admin: 11/13/19 08:23 Dose: 100 mg Documented by: Hydroxyzine HCl (Vistaril) 50 mg PO HSZ PRN PRN Reason: Insomnia Stop: 11/13/19 13:39 Hydroxyzine HCl (Vistaril) 25 mg PO Q4H PRN PRN Reason: Anxiety Stop: 11/13/19 13:39 Last Admin: 11/10/19 16:22 Dose: 25 mg Documented by: Magnesium Hydroxide (Milk Of Magnesia) 30 ml PO DAILY PRN PRN Reason: Constipation Stop: 11/13/19 13:39 Magnesium Oxide (Mag-Ox) 400 mg PO DAILY MAG Stop: 11/14/19 08:59 Last Admin: 11/13/19 08:24 Dose: 400 mg Documented by: Perphenazine (Trilafon) 6 mg PO BID17 MAG Stop: 12/11/19 16:59 Last Admin: 11/13/19 08:25 Dose: 6 mg Documented by: Polyethylene Glycol (Miralax Powder Packet) 17 gm PO DAILY MAG Stop: 11/14/19 08:59 Last Admin: 11/13/19 08:25 Dose: Not Given Documented by: Potassium Chloride (Klor-Con M20) 20 meq PO DAILY MAG Stop: 11/14/19 08:59 Last Admin: 11/13/19 08:24 Dose: 20 meq Documented by: Senna/Docusate Sodium (Senokot S) 1 tab PO QAM MAG Stop: 11/14/19 08:59 Last Admin: 11/13/19 08:25 Dose: 1 tab Documented by: Sodium Chloride ([facility] Nasal) 1 - 2 sprays NA PRN PRN PRN Reason: Nasal Dryness/Congestion Stop: 11/13/19 13:39 Temazepam (Restoril) 7.5 mg PO HSZ MAG Stop: 11/27/19 21:59 Last Admin: 11/12/19 20:35 Dose: 7.5 mg Documented by: Mental Health & Subst Abuse Tx Psychiatrist Name of Psychiatrist: [facility] - Dr. Alves Psychiatrist's Psychiatric Appointment Comment: [address], [address], [place] [address] Therapist Name of Therapist: none Event Decorator Name of Event Decorator: Shruti Mcbride Phone Number for Event Decorator: [phone] Case Management Appointment Comment: Comes to see you at the [facility] Post Discharge Appointments Primary Care Physician Name Of Family Doctor: [facility] - Dr. Jeff Lopez Primary Care Provider Appointment Comment: [address], [address], [place] [address] Neurologist Name of Neurologist: GRAZYNA Caal Neurologist's Date of Appointment with Neurologist: 02/02/20 Time of Appointment with Neurologist: 10:00 a.m. Neurology Appointment Comment: [address] [facility] [address], [place] [address] Contact Information Discharge Discharge Address: [address] [place] [address], [place], [place] [address] Contact Information Comment: JERRELL BRYAN (1) Schizophrenia Schizophrenia type: paranoid schizophrenia Qualified Code(s): F20.0 - Paranoid schizophrenia (2) Hypertension Hypertension type: essential hypertension Qualified Code(s): I10 - Essential (primary) hypertension
[2019-11-13] MEDS: TEMAZEPAM 7.5 MG CAPSULE PO SCH (20:29)
[2019-11-14] MEDS: PERPHENAZINE 2 MG TABLET PO SCH ×2 (08:13→17:16)
[2019-11-14] MEDS ORDERED: POLYETHYLENE (MIRALAX) 17 GM PACK PO PRN (09:17)
[2019-11-14] MEDS ORDERED: ALUMINUM/MAGNESIUM SUSP 30 ML UDC PO PRN (09:25)
[2019-11-14] MEDS ORDERED: MAGNESIUM HYDROXIDE SUSP 30 ML UDC PO PRN (09:25)
[2019-11-14] MEDS ORDERED: SODIUM CHLORIDE 0.65% NA SOLN 45 ML (OCEAN) PRN (09:25)
[2019-11-14] MEDS ORDERED: BISMUTH SUBSALICYLATE PER ML OMNICELL CHARGE PO PRN (09:25)
[2019-11-14] MEDS ORDERED: ACETAMINOPHEN 325 MG TAB PO PRN (09:25)
[2019-11-14] MEDS: POTASSIUM CHLORIDE 20 MEQ TABCR PO SCH (09:41)
[2019-11-14] MEDS: MAGNESIUM OXIDE 400 MG TAB PO SCH (09:41)
[2019-11-14] MEDS: DOCUSATE SODIUM 100 MG CAP PO SCH ×2 (09:41→20:30)
[2019-11-14] MEDS: DOCUSATE SODIUM/SENNA 50/8.6MG TAB PO SCH (09:41)
--- NOTE | 2019-11-14 10:49 | Psychiatric Progress Note ---
Date of Service November 14, 2019 Impression / Recommendations Impression 74-year-old male with chronic schizophrenia who presented 10/08/2019 after he was found unresponsive at the [facility] and admitted to taking a massive, potentially lethal Tylenol overdose in an attempt to end his life. Admitted to the hospitalist service for 6 days, and transferred voluntarily to our unit on 10/14/19. He was on an involuntary 305 outpatient commitment which was converted to inpatient on 10/16/19 (expires 11/21/2019), and we are filing for a another 305 hearing scheduled for 11/17/2019, as he requires ongoing involuntary commitment, both in the hospital and then as an outpatient when he is discharged. He has had numerous medication changes: Mirtazapine and Xanax were discontinued as he reported they were ineffective. He was started on temazepam while on the hospitalist service for reports of poor sleep, and this medication appears to be effective, although he continues to report poor sleep. We will need to consider safety concerns at discharge, given his history of benzodiazepine abuse and ch ronic suicidality/overdose risk, CRR staff did confirm they would hold these medications in order to reduce risk. He was initially placed back on ziprasidone, but reported it was ineffective and agreed to a retrial of Clozaril 10/17, however, trial was halted on 10/29 when patient demonstrated increased confusion and EPS. He refused antipsychotic medication for a week, and agreed to start a trial of perphenazine on 11/06/2019. He continues to report command auditory hallucinations though does admit the voices are "quieter", he has denied SI for 3 days. Inpatient hospitalization remains the least restrictive setting for him at this time, he will still require that outpatient services be coordinated as we get closer to anticipated discharge. (1) Schizophrenia: 10/14 - Continue ziprasidone as initiated on the medical floor - resume 80mg BID dosing with meals - Continue benztropine 0.5mg as needed for reports of stiffness, though it remains unclear if this is truly related to his antipsychotic medication - Mirtazapine was discontinued on the medical floor as patient feels it had been ineffective - Continue temazepam 15mg qHS for sleep - at least while hospitalized in a supervised setting, as patient has a history of benzodiazepine abuse - Will coordinate treatment with patient's outpatient psychiatric supports - Encourage participation in group and recreational programming 10/15 -Continue ziprasidone; reviewed fasting lipid profile and fasting glucose from 02/2019, all values were within normal limits. -Discussed trial of clozapine; patient states that he believes he was on this medication in the past and that it was ineffective. Continue to provide education and encourage retrial, as he has had limited response to multiple other antipsychotics, and it would also help address suicidal thoughts in addition to psychosis. -Involve outpatient field nurse case manager and coordinate with psychiatrist, Dr. Alves. 10/16 -The plan is to continue ziprasidone 80 mg twice a day. We discussed other treatment options with the patient, and he says that he is not interested in trying the various options suggested. He tends to respond in the affirmative every time he is asked whether he has ever taken a number of specific medications, and replies in each instance "it did not help." He does say, somewhat convincingly, that he took clozapine (dose unspecified and unknown by the patient) a number of years ago for "a month or 2," and that it did not help. Re-challenging the patient with clozapine may be helpful, but at present the p atient indicates that he will refuse to take it. -The patient hesitates when asked about loxapine and perphenazine, but then says that he has taken both. Loxapine is not on the hospital formulary. Today, the patient says that he is not interested in trying either of these medications "again." -Today, the patient tells us that he "really does not" want to go to the [facility] ("[facility] although he had previously said that he might be interested in doing that. He adds that he does feel safer in a hospital, but feels that he would like to work towards being able to be discharged back to the community at this point. 10/17 --reconsented for retrial of Clozaril following review of CBC and EKG, patient aware to monitor constipation and sialorrhea and notify staff. will dose at hs and titrate by 25 mg nightly, repeat CBC in 1 week. 10/18--titrate Clozaril to 50 mg po qhs, Dr. Campos notified to consider EKG for repeat QTC on med combo as dose is increased, EPS apparently predates start of Clozaril and is not new, he is agreeable to add 0.5 mg Cogentin standing order as trial basis. 10/19 - Continue clozapine titration (now ordered for automatic titration of 25mg each evening), pt to receive 75mg tonight - Pt reports his condition remains unchanged at this time, but is aware that clozapine will need to be titrated to an effective dose range - At this time, patient maintains his desire would be for eventual discharge back to the [facility] - no longer requesting [facility] referral - He remains suicidal and continues to report head buzzing and auditory hallucinations that are overwhelming to him 10/20 - Continue clozapine titration - pt to receive 100mg tonight - Will reduce ziprasidone to 60mg BID given continued titration of clozapine and reported ineffectiveness of the medication - will order an EKG for tomorrow morning, given cross-titration putting patient at increased risk of QTc prolongation. - Ongoing discussions regarding discharge planning - Pt continues to verbalize SI and feels he cannot contract for safety outside of the hospital setting 10/21 - Clozapine to be titrated to 125mg this evening; will continue ziprasidone 60mg BID for now though can consider ongoing taper - EKG ordered this morning, and reviewed QTc 445 - Reports ongoing SI - stating he is "pretty d*mn close" to wanting to - Discharge planning meeting scheduled for tomorrow 10/22 -Discharge remaining has been postponed. -Ziprasidone was held this morning, and the patient's cognition seems to have cleared. He is fully oriented and has not shown evidence of confusion. The patient, himself, notes that his thinking does seem to be more clear than it had been. -We will further titrate clozapine 250 mg at bedtime and 25 mg in the morning. -Because of persistent disturbing auditory hallucinations that the patient reports prevent him from easily inducing and maintaining sleep we will increase his dose of temazepam from 15 mg at bedtime for sleep to a dose of 22.5 mg at bedtime as needed sleep. -Although the patient's cognition seems to have improved, staff recall that during at least 1 previous admission the patient had similar mental status alterations and a urinary tract infection was found to been contributory. For that reason, we have ordered a urinalysis. -The patient has been demonstrating a shuffling gait, and on testing today a substantial degree of cogwheel rigidity was noted. The patient also reports a feeling "jumpy" and "restless." He had been receiving benztropine 0.5 mg twice a day, and while this may have been helpful, it seems not to have been fully effective. We will try trihexyphenidyl 2 mg stat and then 2 mg twice a day, and titrate further as indicated. 10/23 - Titrate clozapine to 25mg qAM and 200mg qHS - continue to hold ziprasidone at this time - Pt continues to reports stiffness and difficulty with ambulation, given that we are continuing to titrate clozapine we will order an additional prn dose of trihexyphenidyl 2mg with consideration to schedule the dose if necessary - UA results reviewed - no indication for current UTI - Will need to continue to discuss appropriate discharge timeline - patient remains suicidal 10/24 - Given concern for confusion, EPS and parkinsonism, morning dose of clozapine was held - Will reduce patient's dose to 150mg qHS and plan for a slower titration. This dosage continues to be subtherapeutic, and patient will require advancement of dose as tolerated - Will discontinue trihexyphenidyl due to concern for urinary retention - will resume benztropine 1mg BID for ongoing stiffness and EPS - Will plan to reduce dose of temazepam to 7.5mg with a one-time repeat if necessary - Pt placed on MNPR due to ambulatory concerns, somewhat disruptive behavior related to his physical complaints, and need for close observation at this time 10/27 --resume low dose Restoril as seems more disorganized with poorer quality sleep, reviewed can impact risk of falls, ?anticholinergic side effects 10/28 --will decrease Cogentin given potential that anticholinergic side effects are worsening his cognition. 10/29 - Will discontinue clozapine at this time - allow patient to clear for a candida od of time and then consider resuming an antipsychotic medication as he continues to experience auditory hallucinations - Will continue Cogentin, but switch to prn - unlikely to require regularly until/unless an antipsychotic medication is resumed. Agree with concern the medication may increase risk of confusion/falls - Resumed MNPR due to behaviors associated with confusion that are not compat ible with and would be disruptive to a roommate at this time 10/30 - holding off starting a different antipsychotic at this time to give time to clear from potential worsening of presentation from clozapine trial, maintained MNPR for now 10/31 plan unchanged for now, consider options to treat psychotic processes that appear ongoing so far while holding for now as potential that medication reaction adding to presentation 11/01 - Continue to hold clozapine - consider alternative antipsychotic agents to target auditory hallucinations which are ongoing - Will allow for a 7.5mg repeat dose of temazepam, as patient continues to report poor sleep. While temazepam may contribute to confusion, poor quality of sleep may be contributing as well. Pt should not receive an additional dose if he is appearing confused or if gait is unstable. - Pt continues to report suicide "it's still an option" if AH continue - he is admitted presently to feeling as though he would seek help before acting on these thoughts - Will need to scheduled discharge planning meeting with the [facility] once patient is appropriate to participate 11/02 - Continue hold on clozapine - will plan to discuss treatment alternatives during treatment team tomorrow morning in order to provide additional time to clear after clozapine initiation. Pt reports no improvement in symptoms since admission and is agreeable with trial of medications to target his auditory hallucinations - he is specifically requesting "Valium three times a day." - Reviewed history of past antipsychotic medication trials: Zyprexa ("is a joke", restlessness, ineffective); Geodon (ineffective); Abilify (ineffective) - Pt reports desire to return to the [facility]R after discharge, but continues to report SI and is not cleared for discharge at this time 11/03 - 11/04 -Patient continues to refuse all antipsychotic medication. Advised him that if he is willing for a trial of any medication in his group, to let us know, and he expressed understanding. For now continue temazepam and benztropine as needed for muscle tension. -Continue to attend participate in groups, work on healthy coping skills and discharge safety plan. 11/05 - Pt was cooperative with conversation regarding recommendation for an antipsychotic trial - patient agreeable with perphenazine. Will order 4mg daily to initiated with titration as tolerated. - Pt continues to report muscle stiffness and continues to request benztropine - given risk of true EPS with antipsychotic retrial, will continue to have this medication available as needed - Continues to report auditory hallucinations contributing to ongoing suicidality; reports he would be unsafe to leave the hospital at this time 11/06 - continue Trilafon trial, hold additional titration as hx of significant EPS when titrated too quickly. 11/07 - Titrate Trilafon to 4 mg BID (2nd dose with evening meal) 11/08 - Maintain current dosage of Trilafon - can continue cautious titration as tolerated - Pt encouraged to focus on safety planning efforts, as he is reporting some improvement in SI and voicing ultimate desire to return to the CRR 11/09 -file for 306 hearing, to initiate another 305 involuntary commitment, as patient's current commitment will 11/21/2019. This will need to be converted to an IOC at discharge. 11/10 - Discussed titration of Trilafon to 6mg BID starting with this evening's dose - reviewed potential side effects and encouraged patient to report any concerns to staff - Ongoing discussion regarding safety plan for anticipated return to the [facility] - 306 conversion hearing to initiate another 305 is scheduled for 11/17/201911/11 - Continue Trilafon at 6mg BID - denies side effects related to the medication at this time - Pt denied SI yesterday - none yet this morning. He admits to feeling somewhat more positive, but states he is not yet ready for discharge - 306 hearing 11/17/2019 to extend 305 commitment 11/12 - Continue Trilafon 6mg BID - continue further titration as indicated/tolerated, watching for EPS - Pt continues to deny SI, ongoing attempts to engage patient in conversations regarding safety planning - Hearing for extension of 305 commitment - Pt has been offered daily to be escorted outside by staff, patient has consistently declined due to temperature 11/13 Continues to deny suicidal ideation Continue medication regimen unchanged (2) Auditory hallucinations: 10/16 -Patient's chief complaint has to do with persistent persecutory auditory hallucinations. He describes the voices as being "electronically generated," and although he tells us that he does not know the source of the electronically generated voices, he says that he has no doubt that they are real and are coming from some entity that is trying to torture and/or kill him. His explanation for the suicide attempt was not that he has been depressed, but, instead, because he feels tortured by the voices and finds that he can no longer tolerate hearing them and no longer tolerate feeling terrorized by them. Patient also explains that he would rather at his own hand than risk being murdered by unknown forces and unknown means. -The patient's condition has been largely treatment resistant to psychiatric medications. With each antipsychotic medication mentioned, the patient's response has been to assert that the specific medicine mentioned has been tried and was not effective, or has been tried and caused worsening symptoms. Today, he asserts that he has taken clozapine in the past, but that it was not effect [place]. He has unable to identify the dose, and does not recall when or where it was prescribed, but says that he believes that he took it for "a month or 2" before it was discontinued as ineffective. Other options for the patient might be a trial of perphenazine or loxapine. For now, the patient has indicated that he would prefer to remain on Geodon 80 mg twice a day. 3/ - Auditory hallucinations are ongoing. Pt does report that the voices are quieter, but when asked for how long he states "just now, since you asked" - Unclear how reliable patient's reports are on this topic, though it is anticipated ongoing titration of clozapine may be helpful for this 3 - Pt more focused on "head buzzing" today, does not mention auditory hallucinations today though this does not mean he is not experiencing them 36 -Today, the patient reports that he is troubled both by "a buzzing sound" in both ears, as well as by voices". He tells us that he believes that the voices are being generated by a computer and that the threats that are made through the's "voices" are genuine and represent a mortal danger. He insists that he is being told that he is going to be murdered. -I tried to talk to the patient about the fact that his records, going back many years, speak to the presence of similar perceptual disturbances and similar believes. The patient responds by saying, "they have come close to killing me a number of times. 1 of these days they are going to do it!" -We are discontinuing Geodon today and will be increasing his dose of clozapine, beginning tonight. The new dose of clozapine will be 150 mg at bedtime and 25 mg in the morning. We expect that we will need to continue to titrate. We will also reintroduce clozapine, albeit at a lower dose, should his psychiatric condition worsen. Our concern at this point is excess sedation associated with our current cross titration of Geodon and clozapine. 10/23 - Pt denies significant change from above at this time 10/24 - Ongoing, unchanged with current dose of clozapine - pt would likely require further titration of clozapine to therapeutic range; however, this titration must be balanced with concerns the medication may be causing EPS and parkinsonism - Will reduce dose of clozapine to 150mg qHS and suggest reduced pace of titration 10/28 --no change on current dose of Clozaril, will ask Dr. Dorsey to provide s econd opinion re: use and dose of Clozaril given course in past week. 10/29 - No change in AH at this time 11/03 -Patient continues to refuse all antipsychotic medication. Advised that if he is willing to trial any medication in this group, to let us know, and he agreed. He often refuses medications for a time before choosing 1. 11/05 - Pt now agreeable with a trial of perphenazine to target auditory hallucinations - will start with 4mg daily and titrate as tolerated 11/08 - See treatment plan for "Schizophrenia" above (3) Benzodiazepine abuse: 10/14 - Historical diagnosis of benzodiazepine abuse - Will not continue home dose of alprazolam - but will offer temazepam 15mg qHS for sleep as it has been effective - Will need to consider the safety of this medication regimen, and may suggest discontinuation of benzodiazepines at discharge given his history - Benzodiazepines are not recommended for the patient if he would be discharged to an unsupervised setting or expected to manage his own medication administration 10/16 -The patient is history of benzodiazepine abuse is noted. That history not withstanding, at seems apparent that the only hypnotic medication that has been consistently effective for this patient has been temazepam, and there is no evidence that he has been misusing this medication in the community prior to admission. -The material risks of temazepam, including but not limited to, risk of a physical habituation, risk of complicated and possibly fatal withdrawal symptoms, risk of accidents, falls and other injuries, as well as risk of worsening depression and clouded consciousness/cognitive impairment were reviewed with the patient, and he responded by saying, "I know. But it is the only thing that works. I really need to sleep, and without it the voices keep me awake all night." 10/22 -The patient's history of benzodiazepine continues to be noted. However, the patient's current condition, we continue to feel that the use of temazepam for sleep is medically necessary and appropriate. 10/25--d/c temazepam as seems to be contributing to AMS? 11/03--temazepam 7.5 mg at bedtime was resumed 10/28/2019, and patient has continued on that dose, which appears to be helping for sleep. We will need to explore options to ensure safety with this medication at discharge; patient will be returning to the [facility], but in the past has refused to allow staff to hold his medication bottles, which would not be advisable given his substance abuse history and overdose risk. 11/05 - We have been able to confirm with the CRR that they will hold patient's prescribed medications and distribute accordingly. This plan would reduce risk of patient returning to behaviors of benzodiazepine abuse. (4) Tylenol overdose: 10/14 - Continue management per medical team - Recheck LFTs tomorrow morning. Today, AST 70, ALT 631. 10/15 -Continue to trend down. AST 54, ALT 538. We will reorder LFTs for Saturday. Avoid hepatotoxic agents. 10/16 -Patient reports that he remains suicidal and confirms that his overdose of Tylenol was taken with the intent of causing his own . 11/08 - Focus of this particular problems has shifted toward management of schizophrenia and targeting auditory hallucinations which were reported to have been a trigger for his overdose - Consider this problem itself resolved, though we are continuing to work on safety planning efforts. (5) Hypertension: 10/14 - Home medication includes clonidine 0.1mg qHS - Will continue to monitor blood pressure with daily vitals, consider resuming 10/20 - We have continued daily blood pressures, some of which have been mildly elevated but not consistently - Given increased fatigue and concern for falls related to intermittent unsteadiness with ambulation, will continue to hold clonidine at this time 10/22 -Today, the patient's blood pressure is within normal limits. 11/08 - No active changes to this issue - blood pressure continues to be within reasonable limits despite holding home dose of clonidine - Pt can follow-up with his PCP for ongoing monitoring and management 11/13 - Blood pressure normotensive Risk Factors Assessment Male: Yes : Yes Do You Have Access To A Gun?: No Health Problems: No Mental Health Diagnoses: Yes Substance Use Disorders: Yes Previous Attempt: Yes Family History of Suicide: Yes (cousin) Previous Psychiatric Hospitalization: Yes Hopelessness: Yes Protective Factors Assessment [employer] Beliefs: No : No Responsible for Young Children: No Employed: No Stable Relationships: No Supportive Family: No Good Rapport with Provider: No Interval History Identifying Information SCOTT ROBEROT is a 74-year-old M who currently lives in [place] at the [facility]. Pt has a history of schizophrenia and this is his fourth psychiatric admission to our unit in roughly the last 7 months, with one admission to [facility] in that time as well. Pt was admitted on 10/14/19 12:33 on a 201 voluntary commitment after being treated on the medical floor since 10/09/2019 after an intentional Tylenol overdose. 306 conversion hearing was held on 10/16/2019 and his 305 IOC was converted to an inpatient commitment. Chief Complaint "I'm ok". Review of Systems Sleep Information Total Hours of Sleep: 8.75 Sleep Comments: pt on q-15 minute checks Meal Information Percent Meal Consumed - Breakfast: 100 Percent Meal Consumed - Lunch: 100 Percent Meal Consumed - Dinner: 100 Subjective Subjective Patient was seen & assessed and interval progress reviewed with treatment team. Per staff, patient has demonstrated improvement in thought cohesion on . No acute events overnight. Patient scheduled for commitment renewal on Saturday and potential for discharge to CR later in the week. On interview he initially states "it is terrible" but when I posited that he had improved (per staff perception) since time of admission he readily admits that this is likely the case and then denies any specific acute concerns including any new physical problems. He ultimately indicated that he was feeling "okay". He has been compliant with his oral medications. Many of his medicines are due for renewal today following month-long hospitalization. Physical Exam Psychiatric Orientation: alert and cooperative Apperance: appropriately dressed and appropriately groomed Eye Contact: good eye contact Motor Behavior: steady gait and station Speech: normal rate/rhythm/volume of speech Affect: + blunted affect; no flat affect and no labile affect Mood: no depressed mood Thought Process: + concrete thought process Thought Content: no preoccupation Suicidal Thoughts: denies suicidal thoughts Homicidal Thoughts: denies homicidal thoughts Hallucinations: + auditory hallucinations Cognition: language grossly intact Insight: + limited insight Judgement: + limited judgement Vital Signs (Past 24 Hours) Last Vital Signs Temp 36.6 C 11/14/19 06:29 Pulse 71 11/14/19 06:30 Resp 18 11/14/19 06:29 BP 122/72 11/14/19 06:30 Pulse Ox 96 10/22/19 23:30 Results & Data ([facility]) Current Inpatient Medications Current Inpatient Medications: Current Inpatient Medications Acetaminophen (Tylenol) 650 mg PO Q4H PRN PRN Reason: Headache or Minor Fever Stop: 12/14/19 09:24 Al Hydrox/Mg Hydrox/Simethicone (Maalox) 30 ml PO Q4H PRN PRN Reason: GI Upset Stop: 12/14/19 09:24 Benztropine Mesylate (Cogentin) 0.5 mg PO DAILY PRN PRN Reason: EPS/restlessness Stop: 11/29/19 11:31 Last Admin: 11/10/19 16:21 Dose: 0.5 mg Documented by: Bismuth Subsalicylate (Kaopectate) 15 ml PO PRN PRN PRN Reason: Loose Stool Stop: 12/14/19 09:24 Docusate Sodium (Colace) 100 mg PO BID [facility] Stop: 12/14/19 09:59 Last Admin: 11/14/19 09:41 Dose: 100 mg Documented by: Hydroxyzine HCl (Vistaril) 50 mg PO HSZ PRN PRN Reason: Insomnia Stop: 12/14/19 09:24 Hydroxyzine HCl (Vistaril) 25 mg PO Q4H PRN PRN Reason: Anxiety Stop: 12/14/19 09:24 Magnesium Hydroxide (Milk Of Magnesia) 30 ml PO DAILY PRN PRN Reason: Constipation Stop: 12/14/19 09:24 Magnesium Oxide (Mag-Ox) 400 mg PO QAM [facility] Stop: 12/14/19 09:59 Last Admin: 11/14/19 09:41 Dose: 400 mg Documented by: Perphenazine (Trilafon) 6 mg PO BID17 [facility] Stop: 12/11/19 16:59 Last Admin: 11/14/19 08:13 Dose: 6 mg Documented by: Polyethylene Glycol (Miralax Powder Packet) 17 gm PO DAILY PRN PRN Reason: Constipation Stop: 12/14/19 09:16 Potassium Chloride (Klor-Con M20) 20 meq PO QAM [facility] Stop: 12/14/19 09:59 Last Admin: 11/14/19 09:41 Dose: 20 meq Documented by: Senna/Docusate Sodium (Senokot S) 1 tab PO QAM MAG Stop: 12/14/19 09:59 Last Admin: 11/14/19 09:41 Dose: 1 tab Documented by: Sodium Chloride ([place] Nasal) 1 - 2 sprays NA PRN PRN PRN Reason: Nasal Dryness/Congestion Stop: 12/14/19 09:24 Temazepam (Restoril) 7.5 mg PO HSZ MAG Stop: 11/27/19 21:59 Last Admin: 11/13/19 20:29 Dose: 7.5 mg Documented by: Mental Health & Subst Abuse Tx Psychiatrist Name of Psychiatrist: [facility] - Dr. Alves Psychiatrist's Date of Appointment with Psychiatrist: 11/23/19 Time of Appointment with Psychiatrist: 4:40pm Psychiatric Appointment Comment: They will call you at the [facility] number and you can call right back if needed Therapist Name of Therapist: none Pole Lift Operator Name of Pole Lift Operator: Shruti Mcbride Phone Number for Pole Lift Operator: [phone] Case Management Appointment Comment: Comes to see you at the CRR Post Discharge Appointments Primary Care Physician Name Of Family Doctor: [facility] - Dr. Jeff Lopez Primary Care Provider Appointment Comment: [address], [address], [place] [address] Neurologist Name of Neurologist: [facility] - Dr. Caal Neurologist's Date of Appointment with Neurologist: 02/02/20 Time of Appointment with Neurologist: 10:00 a.m. Neurology Appointment Comment: [address], [place] [address] Contact Information Discharge Discharge Address: [address], [place] [address] Contact Information Comment: [facility] [place] [facility] (1) Schizophrenia Schizophrenia type: paranoid schizophrenia Qualified Code(s): F20.0 - Paranoid schizophrenia (2) Hypertension Hypertension type: essential hypertension Qualified Code(s): I10 - Essential (primary) hypertension
[2019-11-14] MEDS: TEMAZEPAM 7.5 MG CAPSULE PO SCH (20:30)
[2019-11-15] MEDS: DOCUSATE SODIUM 100 MG CAP PO SCH ×2 (08:03→20:39)
[2019-11-15] MEDS: PERPHENAZINE 2 MG TABLET PO SCH ×2 (08:03→17:17)
[2019-11-15] MEDS: MAGNESIUM OXIDE 400 MG TAB PO SCH (08:04)
[2019-11-15] MEDS: POTASSIUM CHLORIDE 20 MEQ TABCR PO SCH (08:04)
[2019-11-15] MEDS: DOCUSATE SODIUM/SENNA 50/8.6MG TAB PO SCH (08:04)
--- NOTE | 2019-11-15 13:25 | Psychiatric Progress Note ---
Date of Service November 15, 2019 Impression / Recommendations Impression 74-year-old male with chronic schizophrenia who presented 10/08/2019 after he was found unresponsive at the [facility] and admitted to taking a massive, potentially lethal Tylenol overdose in an attempt to end his life. Admitted to the hospitalist service for 6 days, and transferred voluntarily to our unit on 10/14/19. He was on an involuntary 305 outpatient commitment which was converted to inpatient on 10/16/19 (expires 11/21/2019), and we are filing for a another 305 hearing scheduled for 11/17/2019, as he requires ongoing involuntary commitment, both in the hospital and then as an outpatient when he is discharged. He has had numerous medication changes: Mirtazapine and Xanax were discontinued as he reported they were ineffective. He was started on temazepam while on the hospitalist service for reports of poor sleep, and this medication appears to be effective, although he continues to report poor sleep. We will need to consider safety concerns at discharge, given his history of benzodiazepine abuse and ch ronic suicidality/overdose risk, [facility]R staff did confirm they would hold these medications in order to reduce risk. He was initially placed back on ziprasidone, but reported it was ineffective and agreed to a retrial of Clozaril 10/17, however, trial was halted on 10/29 when patient demonstrated increased confusion and EPS. He refused antipsychotic medication for a week, and agreed to start a trial of perphenazine on 11/06/2019. He continues to report command auditory hallucinations though does admit the voices are "quieter", he has denied SI for 3 days. Inpatient hospitalization remains the least restrictive setting for him at this time, he will still require that outpatient services be coordinated as we get closer to anticipated discharge. (1) Schizophrenia: 10/14 - Continue ziprasidone as initiated on the medical floor - resume 80mg BID dosing with meals - Continue benztropine 0.5mg as needed for reports of stiffness, though it remains unclear if this is truly related to his antipsychotic medication - Mirtazapine was discontinued on the medical floor as patient feels it had been ineffective - Continue temazepam 15mg qHS for sleep - at least while hospitalized in a supervised setting, as patient has a history of benzodiazepine abuse - Will coordinate treatment with patient's outpatient psychiatric supports - Encourage participation in group and recreational programming 10/15 -Continue ziprasidone; reviewed fasting lipid profile and fasting glucose from 02/2019, all values were within normal limits. -Discussed trial of clozapine; patient states that he believes he was on this medication in the past and that it was ineffective. Continue to provide education and encourage retrial, as he has had limited response to multiple other antipsychotics, and it would also help address suicidal thoughts in addition to psychosis. -Involve outpatient dependency case manager and coordinate with psychiatrist, Dr. Alves. 10/16 -The plan is to continue ziprasidone 80 mg twice a day. We discussed other treatment options with the patient, and he says that he is not interested in trying the various options suggested. He tends to respond in the affirmative every time he is asked whether he has ever taken a number of specific medications, and replies in each instance "it did not help." He does say, somewhat convincingly, that he took clozapine (dose unspecified and unknown by the patient) a number of years ago for "a month or 2," and that it did not help. Re-challenging the patient with clozapine may be helpful, but at present the p atient indicates that he will refuse to take it. -The patient hesitates when asked about loxapine and perphenazine, but then says that he has taken both. Loxapine is not on the hospital formulary. Today, the patient says that he is not interested in trying either of these medications "again." -Today, the patient tells us that he "really does not" want to go to the [facility] ("[facility]"), although he had previously said that he might be interested in doing that. He adds that he does feel safer in a hospital, but feels that he would like to work towards being able to be discharged back to the community at this point. 10/17 --reconsented for retrial of Clozaril following review of CBC and EKG, patient aware to monitor constipation and sialorrhea and notify staff. will dose at hs and titrate by 25 mg nightly, repeat CBC in 1 week. 10/18--titrate Clozaril to 50 mg po qhs, Dr. Campos notified to consider EKG for repeat QTC on med combo as dose is increased, EPS apparently predates start of Clozaril and is not new, he is agreeable to add 0.5 mg Cogentin standing order as trial basis. 10/19 - Continue clozapine titration (now ordered for automatic titration of 25mg each evening), pt to receive 75mg tonight - Pt reports his condition remains unchanged at this time, but is aware that clozapine will need to be titrated to an effective dose range - At this time, patient maintains his desire would be for eventual discharge back to the [facility] - no longer requesting [facility] referral - He remains suicidal and continues to report head buzzing and auditory hallucinations that are overwhelming to him 10/20 - Continue clozapine titration - pt to receive 100mg tonight - Will reduce ziprasidone to 60mg BID given continued titration of clozapine and reported ineffectiveness of the medication - will order an EKG for tomorrow morning, given cross-titration putting patient at increased risk of QTc prolongation. - Ongoing discussions regarding discharge planning - Pt continues to verbalize SI and feels he cannot contract for safety outside of the hospital setting 10/21 - Clozapine to be titrated to 125mg this evening; will continue ziprasidone 60mg BID for now though can consider ongoing taper - EKG ordered this morning, and reviewed QTc 445 - Reports ongoing SI - stating he is "pretty d*mn close" to wanting to - Discharge planning meeting scheduled for tomorrow 10/22 -Discharge remaining has been postponed. -Ziprasidone was held this morning, and the patient's cognition seems to have cleared. He is fully oriented and has not shown evidence of confusion. The patient, himself, notes that his thinking does seem to be more clear than it had been. -We will further titrate clozapine 250 mg at bedtime and 25 mg in the morning. -Because of persistent disturbing auditory hallucinations that the patient reports prevent him from easily inducing and maintaining sleep we will increase his dose of temazepam from 15 mg at bedtime for sleep to a dose of 22.5 mg at bedtime as needed sleep. -Although the patient's cognition seems to have improved, staff recall that during at least 1 previous admission the patient had similar mental status alterations and a urinary tract infection was found to been contributory. For that reason, we have ordered a urinalysis. -The patient has been demonstrating a shuffling gait, and on testing today a substantial degree of cogwheel rigidity was noted. The patient also reports a feeling "jumpy" and "restless." He had been receiving benztropine 0.5 mg twice a day, and while this may have been helpful, it seems not to have been fully effective. We will try trihexyphenidyl 2 mg stat and then 2 mg twice a day, and titrate further as indicated. 10/23 - Titrate clozapine to 25mg qAM and 200mg qHS - continue to hold ziprasidone at this time - Pt continues to reports stiffness and difficulty with ambulation, given that we are continuing to titrate clozapine we will order an additional prn dose of trihexyphenidyl 2mg with consideration to schedule the dose if necessary - UA results reviewed - no indication for current UTI - Will need to continue to discuss appropriate discharge timeline - patient remains suicidal 10/24 - Given concern for confusion, EPS and parkinsonism, morning dose of clozapine was held - Will reduce patient's dose to 150mg qHS and plan for a slower titration. This dosage continues to be subtherapeutic, and patient will require advancement of dose as tolerated - Will discontinue trihexyphenidyl due to concern for urinary retention - will resume benztropine 1mg BID for ongoing stiffness and EPS - Will plan to reduce dose of temazepam to 7.5mg with a one-time repeat if necessary - Pt placed on MNPR due to ambulatory concerns, somewhat disruptive behavior related to his physical complaints, and need for close observation at this time 10/27 --resume low dose Restoril as seems more disorganized with poorer quality sleep, reviewed can impact risk of falls, ?anticholinergic side effects 10/28 --will decrease Cogentin given potential that anticholinergic side effects are worsening his cognition. 10/29 - Will discontinue clozapine at this time - allow patient to clear for a candida od of time and then consider resuming an antipsychotic medication as he continues to experience auditory hallucinations - Will continue Cogentin, but switch to prn - unlikely to require regularly until/unless an antipsychotic medication is resumed. Agree with concern the medication may increase risk of confusion/falls - Resumed MNPR due to behaviors associated with confusion that are not compat ible with and would be disruptive to a roommate at this time 10/30 - holding off starting a different antipsychotic at this time to give time to clear from potential worsening of presentation from clozapine trial, maintained MNPR for now 10/31 plan unchanged for now, consider options to treat psychotic processes that appear ongoing so far while holding for now as potential that medication reaction adding to presentation 11/01 - Continue to hold clozapine - consider alternative antipsychotic agents to target auditory hallucinations which are ongoing - Will allow for a 7.5mg repeat dose of temazepam, as patient continues to report poor sleep. While temazepam may contribute to confusion, poor quality of sleep may be contributing as well. Pt should not receive an additional dose if he is appearing confused or if gait is unstable. - Pt continues to report suicide "it's still an option" if AH continue - he is admitted presently to feeling as though he would seek help before acting on these thoughts - Will need to scheduled discharge planning meeting with the [facility] once patient is appropriate to participate 11/02 - Continue hold on clozapine - will plan to discuss treatment alternatives during treatment team tomorrow morning in order to provide additional time to clear after clozapine initiation. Pt reports no improvement in symptoms since admission and is agreeable with trial of medications to target his auditory hallucinations - he is specifically requesting "Valium three times a day." - Reviewed history of past antipsychotic medication trials: Zyprexa ("is a joke", restlessness, ineffective); Geodon (ineffective); Abilify (ineffective) - Pt reports desire to return to the [facility] after discharge, but continues to report SI and is not cleared for discharge at this time 11/03 - 11/04 -Patient continues to refuse all antipsychotic medication. Advised him that if he is willing for a trial of any medication in his group, to let us know, and he expressed understanding. For now continue temazepam and benztropine as needed for muscle tension. -Continue to attend participate in groups, work on healthy coping skills and discharge safety plan. 11/05 - Pt was cooperative with conversation regarding recommendation for an antipsychotic trial - patient agreeable with perphenazine. Will order 4mg daily to initiated with titration as tolerated. - Pt continues to report muscle stiffness and continues to request benztropine - given risk of true EPS with antipsychotic retrial, will continue to have this medication available as needed - Continues to report auditory hallucinations contributing to ongoing suicidality; reports he would be unsafe to leave the hospital at this time 11/06 - continue Trilafon trial, hold additional titration as hx of significant EPS when titrated too quickly. 11/07 - Titrate Trilafon to 4 mg BID (2nd dose with evening meal) 11/08 - Maintain current dosage of Trilafon - can continue cautious titration as tolerated - Pt encouraged to focus on safety planning efforts, as he is reporting some improvement in SI and voicing ultimate desire to return to the [facility] 11/09 -file for 306 hearing, to initiate another 305 involuntary commitment, as patient's current commitment will 11/21/2019. This will need to be converted to an IOC at discharge. 11/10 - Discussed titration of Trilafon to 6mg BID starting with this evening's dose - reviewed potential side effects and encouraged patient to report any concerns to staff - Ongoing discussion regarding safety plan for anticipated return to the [facility] - 306 conversion hearing to initiate another 305 is scheduled for 11/17/201911/11 - Continue Trilafon at 6mg BID - denies side effects related to the medication at this time - Pt denied SI yesterday - none yet this morning. He admits to feeling somewhat more positive, but states he is not yet ready for discharge - 306 hearing 11/17/2019 to extend 305 commitment 11/12 - Continue Trilafon 6mg BID - continue further titration as indicated/tolerated, watching for EPS - Pt continues to deny SI, ongoing attempts to engage patient in conversations regarding safety planning - Hearing for extension of 305 commitment - Pt has been offered daily to be escorted outside by staff, patient has consistently declined due to temperature 11/13 Continues to deny suicidal ideation Continue medication regimen unchanged 11/14 Condition remains stable. Continue medication regimen and treatment plan as prescribed. (2) Auditory hallucinations: 10/16 -Patient's chief complaint has to do with persistent persecutory auditory hallucinations. He describes the voices as being "electronically generated," and although he tells us that he does not know the source of the electronically generated voices, he says that he has no doubt that they are real and are coming from some entity that is trying to torture and/or kill him. His explanation for the suicide attempt was not that he has been depressed, but, instead, because he feels tortured by the voices and finds that he can no longer tolerate hearing them and no longer tolerate feeling terrorized by them. Patient also explains that he would rather at his own hand than risk being murdered by unknown forces and unknown means. -The patient's condition has been largely treatment resistant to psychiatric medications. With each antipsychotic medication mentioned, the patient's response has been to assert that the specific medicine mentioned has been tried and was not effective, or has been tried and caused worsening symptoms. Today, he asserts that he has taken clozapine in the past, but that it was not effective. He has unable to identify the dose, and does not recall when or where it was prescribed, but says that he believes that he took it for "a month or 2" before it was discontinued as ineffective. Other options for the patient might be a trial of perphenazine or loxapine. For now, the patient has in dicated that he would prefer to remain on Geodon 80 mg twice a day. 3/4 - Auditory hallucinations are ongoing. Pt does report that the voices are quieter, but when asked for how long he states "just now, since you asked" - Unclear how reliable patient's reports are on this topic, though it is anticipated ongoing titration of clozapine may be helpful for this 10/21 - Pt more focused on "head buzzing" today, does not mention auditory hallucinations today though this does not mean he is not experiencing them 3/6 -Today, the patient reports that he is troubled both by "a buzzing sound" in both ears, as well as by voices". He tells us that he believes that the voices are being generated by a computer and that the threats that are made through the's "voices" are genuine and represent a mortal danger. He insists that he is being told that he is going to be murdered. -I tried to talk to the patient about the fact that his records, going back many years, speak to the presence of similar perceptual disturbances and similar believes. The patient responds by saying, "they have come close to killing me a number of times. 1 of these days they are going to do it!" -We are discontinuing Geodon today and will be increasing his dose of clozapine, beginning tonight. The new dose of clozapine will be 150 mg at bedtime and 25 mg in the morning. We expect that we will need to continue to titrate. We will also reintroduce clozapine, albeit at a lower dose, should his psychiatric condition worsen. Our concern at this point is excess sedation associated with our current cross titration of Geodon and clozapine. 3 - Pt denies significant change from above at this time 10/24 - Ongoing, unchanged with current dose of clozapine - pt would likely require further titration of clozapine to therapeutic range; however, this titration must be balanced with concerns the medication may be causing EPS and parkinsonism - Will reduce dose of clozapine to 150mg qHS and suggest reduced pace of titration 10/28 --no change on current dose of Clozaril, will ask Dr. Dorsey to provide second opinion re: use and dose of Clozaril given course in past week. 10/29 - No change in AH at this time 11/03 -Patient continues to refuse all antipsychotic medication. Advised that if he is willing to trial any medication in this group, to let us know, and he agreed. He often refuses medications for a time before choosing 1. 11/05 - Pt now agreeable with a trial of perphenazine to target auditory hallucinations - will start with 4mg daily and titrate as tolerated 11/08 - See treatment plan for "Schizophrenia" above (3) Benzodiazepine abuse: 10/14 - Historical diagnosis of benzodiazepine abuse - Will not continue home dose of alprazolam - but will offer temazepam 15mg qHS for sleep as it has been effective - Will need to consider the safety of this medication regimen, and may suggest discontinuation of benzodiazepines at discharge given his history - Benzodiazepines are not recommended for the patient if he would be discharged to an unsupervised setting or expected to manage his own medication administration 10/16 -The patient is history of benzodiazepine abuse is noted. That history not withstanding, at seems apparent that the only hypnotic medication that has been consistently effective for this patient has been temazepam, and there is no evidence that he has been misusing this medication in the community prior to admission. -The material risks of temazepam, including but not limited to, risk of a physical habituation, risk of complicated and possibly fatal withdrawal symptoms, risk of accidents, falls and other injuries, as well as risk of worsening depression and clouded consciousness/cognitive impairment were rev iewed with the patient, and he responded by saying, "I know. But it is the only thing that works. I really need to sleep, and without it the voices keep me awake all night." 10/22 -The patient's history of benzodiazepine continues to be noted. However, the patient's current condition, we continue to feel that the use of temazepam for sleep is medically necessary and appropriate. 10/25--d/c temazepam as seems to be contributing to AMS? 11/03--temazepam 7.5 mg at bedtime was resumed 10/28/2019, and patient has continued on that dose, which appears to be helping for sleep. We will need to explore options to ensure safety with this medication at discharge; patient will be returning to the [facility], but in the past has refused to allow staff to hold his medication bottles, which would not be advisable given his substance abuse history and overdose risk. 11/05 - We have been able to confirm with the [facility] that they will hold patient's prescribed medications and distribute accordingly. This plan would reduce risk of patient returning to behaviors of benzodiazepine abuse. (4) Tylenol overdose: 10/14 - Continue management per medical team - Recheck LFTs tomorrow morning. Today, AST 70, ALT 631. 10/15 -Continue to trend down. AST 54, ALT 538. We will reorder LFTs for Saturday. Avoid hepatotoxic agents. 10/16 -Patient reports that he remains suicidal and confirms that his overdose of Tylenol was taken with the intent of causing his own . 11/08 - Focus of this particular problems has shifted toward management of schizophrenia and targeting auditory hallucinations which were reported to have been a trigger for his overdose - Consider this problem itself resolved, though we are continuing to work on safety planning efforts. (5) Hypertension: 10/14 - Home medication includes clonidine 0.1mg qHS - Will continue to monitor blood pressure with daily vitals, consider resuming 10/20 - We have continued daily blood pressures, some of which have been mildly elevated but not consistently - Given increased fatigue and concern for falls related to intermittent unsteadiness with ambulation, will continue to hold clonidine at this time 10/22 -Today, the patient's blood pressure is within normal limits. 11/08 - No active changes to this issue - blood pressure continues to be within r easonable limits despite holding home dose of clonidine - Pt can follow-up with his PCP for ongoing monitoring and management 11/13 - Blood pressure normotensive Risk Factors Assessment Male: Yes : Yes Do You Have Access To A Gun?: No Health Problems: No Mental Health Diagnoses: Yes Substance Use Disorders: Yes Previous Attempt: Yes Family History of Suicide: Yes (cousin) Previous Psychiatric Hospitalization: Yes Hopelessness: Yes Protective Factors Assessment Yazidism Beliefs: No : No Responsible for Young Children: No Employed: No Stable Relationships: No Supportive Family: No Good Rapport with Provider: No Interval History Identifying Information SCOTT ROBERTO is a 74-year-old M who currently lives in [place] at the [facility]. Pt has a history of schizophrenia and this is his fourth psychiatric admission to our unit in roughly the last 7 months, with one admission to [facility] in that time as well. Pt was admitted on 10/14/19 12:33 on a 201 voluntary commitment after being treated on the medical floor since 10/09/2019 after an intentional Tylenol overdose. 306 conversion hearing was held on 10/16/2019 and his 305 IOC was converted to an inpatient commitment. Chief Complaint "I think I would like a lower dose of the medication". Review of Systems Sleep Information Total Hours of Sleep: 6.5 Sleep Comments: pt on q-15 minute checks Meal Information Percent Meal Consumed - Breakfast: 100 Percent Meal Consumed - Lunch: 100 Percent Meal Consumed - Dinner: 100 Subjective Subjective Patient was seen & assessed and interval progress reviewed with treatment team. No acute events overnight. Patient demonstrating a little more positive affect per staff. He again denies ongoing suicidal ideation, denies passive wish, and does not identify any specific somatic complaints or concerns this morning. Physical Exam Psychiatric Orientation: alert and cooperative Apperance: appropriately dressed, appropriately groomed and appeared stated age Eye Contact: good eye contact Motor Behavior: steady gait and station Speech: normal rate/rhythm/volume of speech Affect: euthymic affect Mood: no depressed mood and no angry mood Thought Process: + concrete thought process Thought Content: no preoccupation Suicidal Thoughts: denies suicidal thoughts, denies suicidal plan and denies suicidal intent Hallucinations: + auditory hallucinations Insight: + limited insight Judgement: + limited judgement Vital Signs (Past 24 Hours) Last Vital Signs Temp 36.7 C 11/15/19 06:45 Pulse 76 11/15/19 06:45 Resp 18 11/15/19 06:45 BP 121/74 11/15/19 06:45 Pulse Ox 96 10/22/19 23:30 Results & Data ([facility]) Current Inpatient Medications Current Inpatient Medications: Current Inpatient Medications Acetaminophen (Tylenol) 650 mg PO Q4H PRN PRN Reason: Headache or Minor Fever Stop: 12/14/19 09:24 Al Hydrox/Mg Hydrox/Simethicone (Maalox) 30 ml PO Q4H PRN PRN Reason: GI Upset Stop: 12/14/19 09:24 Benztropine Mesylate (Cogentin) 0.5 mg PO DAILY PRN PRN Reason: EPS/restlessness Stop: 11/29/19 11:31 Last Admin: 11/10/19 16:21 Dose: 0.5 mg Documented by: Bismuth Subsalicylate (Kaopectate) 15 ml PO PRN PRN PRN Reason: Loose Stool Stop: 12/14/19 09:24 Docusate Sodium (Colace) 100 mg PO BID [facility] Stop: 12/14/19 09:59 Last Admin: 11/15/19 08:03 Dose: 100 mg Documented by: Hydroxyzine HCl (Vistaril) 50 mg PO HSZ PRN PRN Reason: Insomnia Stop: 12/14/19 09:24 Hydroxyzine HCl (Vistaril) 25 mg PO Q4H PRN PRN Reason: Anxiety Stop: 12/14/19 09:24 Magnesium Hydroxide (Milk Of Magnesia) 30 ml PO DAILY PRN PRN Reason: Constipation Stop: 12/14/19 09:24 [facility] ([facility]) [facility] Stop: 12/14/19 09:59 Last Admin: 11/15/19 08:04 Dose: 400 mg Documented by: Perphenazine (Trilafon) 6 mg PO [id number] [facility] Stop: 12/11/19 16:59 Last Admin: 11/15/19 08:03 Dose: 6 mg Documented by: Polyethylene Glycol (Miralax Powder Packet) 17 gm PO DAILY PRN PRN Reason: Constipation Stop: 12/14/19 09:16 Potassium Chloride (Klor-Con M20) 20 meq PO QAM [facility] Stop: 12/14/19 09:59 Last Admin: 11/15/19 08:04 Dose: 20 meq Documented by: Senna/Docusate Sodium (Senokot S) 1 tab PO QAM [facility] Stop: 12/14/19 09:59 Last Admin: 11/15/19 08:04 Dose: 1 tab Documented by: Sodium Chloride (Orange Nasal) 1 - 2 sprays NA PRN PRN PRN Reason: Nasal Dryness/Congestion Stop: 12/14/19 09:24 Temazepam (Restoril) 7.5 mg PO HSZ [facility] Stop: 11/27/19 21:59 Last Admin: 11/14/19 20:30 Dose: 7.5 mg Documented by: Mental Health & Subst Abuse Tx Psychiatrist Name of Psychiatrist: [facility] - Dr. Alves Psychiatrist's Date of Appointment with Psychiatrist: 11/23/19 Time of Appointment with Psychiatrist: 4:40pm Psychiatric Appointment Comment: They will call you at the CRR number and you can call right back if needed Therapist Name of Therapist: none Cooling Room Attendant Name of Cooling Room Attendant: Shruti Mcbride Phone Number for Cooling Room Attendant: [phone] Case Management Appointment Comment: Comes to see you at the CRR Post Discharge Appointments Primary Care Physician Name Of Family Doctor: [facility] - Dr. Jeff Lopez Primary Care Provider Appointment Comment: [address], [address], [place] [address] Neurologist Name of Neurologist: [facility] - Dr. Caal Neurologist's Date of Appointment with Neurologist: 02/02/20 Time of Appointment with Neurologist: 10:00 a.m. Neurology Appointment Comment: [address] [facility] [address], [place] [address] Contact Information Discharge Discharge Address: [address] [place] [address], [place] [address] Contact Information Comment: [facility] CR[facility] (1) Schizophrenia Schizophrenia type: paranoid schizophrenia Qualified Code(s): F20.0 - Paranoid schizophrenia (2) Hypertension Hypertension type: essential hypertension Qualified Code(s): I10 - Essential (primary) hypertension
[2019-11-15] MEDS: TEMAZEPAM 7.5 MG CAPSULE PO SCH (20:38)
[2019-11-16] MEDS: MAGNESIUM OXIDE 400 MG TAB PO SCH (07:52)
[2019-11-16] MEDS: POTASSIUM CHLORIDE 20 MEQ TABCR PO SCH (07:52)
[2019-11-16] MEDS: DOCUSATE SODIUM/SENNA 50/8.6MG TAB PO SCH (07:53)
[2019-11-16] MEDS: PERPHENAZINE 2 MG TABLET PO SCH ×2 (07:53→17:23)
[2019-11-16] MEDS: DOCUSATE SODIUM 100 MG CAP PO SCH ×2 (07:53→20:25)
--- NOTE | 2019-11-16 10:20 | Psychiatric Progress Note ---
Date of Service November 16, 2019 Impression / Recommendations Impression 74-year-old male with chronic schizophrenia who presented 10/08/2019 after he was found unresponsive at the [facility] and admitted to taking a massive, potentially lethal Tylenol overdose in an attempt to end his life. Admitted to the hospitalist service for 6 days, and transferred voluntarily to our unit on 10/14/19. He was on an involuntary 305 outpatient commitment which was converted to inpatient on 10/16/19 (expires 11/21/2019), and we are filing for a another 305 hearing scheduled for 11/17/2019, as he requires ongoing involuntary commitment, both in the hospital and then as an outpatient when he is discharged. He has had numerous medication changes: Mirtazapine and Xanax were discontinued as he reported they were ineffective. He was started on temazepam while on the hospitalist service for reports of poor sleep, and this medication appears to be effective, although he continues to report poor sleep. We will need to consider safety concerns at discharge, given his history of benzodiazepine abuse and ch ronic suicidality/overdose risk, [facility]R staff did confirm they would hold these medications in order to reduce risk. He was initially placed back on ziprasidone, but reported it was ineffective and agreed to a retrial of Clozaril 10/17, however, trial was halted on 10/29 when patient demonstrated increased confusion and EPS. He refused antipsychotic medication for a week, and agreed to start a trial of perphenazine on 11/06/2019. He continues to report command auditory hallucinations though does admit the voices are "quieter", he has continued to deny SI. 305 hearing is scheduled for tomorrow morning - discharge plans are being coordinated with the [facility] and a / discharge is anticipated. (1) Schizophrenia: 10/14 - Continue ziprasidone as initiated on the medical floor - resume 80mg BID dosing with meals - Continue benztropine 0.5mg as needed for reports of stiffness, though it remains unclear if this is truly related to his antipsychotic medication - Mirtazapine was discontinued on the medical floor as patient feels it had been ineffective - Continue temazepam 15mg qHS for sleep - at least while hospitalized in a supervised setting, as patient has a history of benzodiazepine abuse - Will coordinate treatment with patient's outpatient psychiatric supports - Encourage participation in group and recreational programming 10/15 -Continue ziprasidone; reviewed fasting lipid profile and fasting glucose from 02/2019, all values were within normal limits. -Discussed trial of clozapine; patient states that he believes he was on this medication in the past and that it was ineffective. Continue to provide education and encourage retrial, as he has had limited response to multiple other antipsychotics, and it would also help address suicidal thoughts in addition to psychosis. -Involve outpatient manager of case and coordinate with psychiatrist, Dr. Alves. 10/16 -The plan is to continue ziprasidone 80 mg twice a day. We discussed other treatment options with the patient, and he says that he is not interested in trying the various options suggested. He tends to respond in the affirmative every time he is asked whether he has ever taken a number of specific medications, and replies in each instance "it did not help." He does say, somewhat convincingly, that he took clozapine (dose unspecified and unknown by the patient) a number of years ago for "a month or 2," and that it did not help. Re-challenging the patient with clozapine may be helpful, but at present the patient indicates that he will refuse to take it. -The patient hesitates when asked about loxapine and perphenazine, but then says that he has taken both. Loxapine is not on the hospital formulary. Today, the patient says that he is not interested in trying either of these medications "again." -Today, the patient tells us that he "really does not" want to go to the [facility] ("[facility]"), although he had previously said that he might be interested in doing that. He adds that he does feel safer in a hospital, but feels that he would like to work towards being able to be discharged back to the community at this point. 10/17 --reconsented for retrial of Clozaril following review of CBC and EKG, patient aware to monitor constipation and sialorrhea and notify staff. will dose at hs and titrate by 25 mg nightly, repeat CBC in 1 week. 10/18--titrate Clozaril to 50 mg po qhs, Dr. Campos notified to consider EKG for repeat QTC on med combo as dose is increased, EPS apparently predates start of Clozaril and is not new, he is agreeable to add 0.5 mg Cogentin standing order as trial basis. 3/3 - Continue clozapine titration (now ordered for automatic titration of 25mg each evening), pt to receive 75mg tonight - Pt reports his condition remains unchanged at this time, but is aware that clozapine will need to be titrated to an effective dose range - At this time, patient maintains his desire would be for eventual discharge back to the [facility] - no longer requesting [facility] referral - He remains suicidal and continues to report head buzzing and auditory hallucinations that are overwhelming to him 10/20 - Continue clozapine titration - pt to receive 100mg tonight - Will reduce ziprasidone to 60mg BID given continued titration of clozapine and reported ineffectiveness of the medication - will order an EKG for tomorrow morning, given cross-titration putting patient at increased risk of QTc prolongation. - Ongoing discussions regarding discharge planning - Pt continues to verbalize SI and feels he cannot contract for safety outs afua of the hospital setting 10/21 - Clozapine to be titrated to 125mg this evening; will continue ziprasidone 60mg BID for now though can consider ongoing taper - EKG ordered this morning, and reviewed QTc 445 - Reports ongoing SI - stating he is "pretty d*mn close" to wanting to - Discharge planning meeting scheduled for tomorrow 10/22 -Discharge remaining has been postponed. -Ziprasidone was held this morning, and the patient's cognition seems to have cleared. He is fully oriented and has not shown evidence of confusion. The patient, himself, notes that his thinking does seem to be more clear than it had been. -We will further titrate clozapine 250 mg at bedtime and 25 mg in the morning. -Because of persistent disturbing auditory hallucinations that the patient reports prevent him from easily inducing and maintaining sleep we will increase his dose of temazepam from 15 mg at bedtime for sleep to a dose of 22.5 mg at bedtime as needed sleep. -Although the patient's cognition seems to have improved, staff recall that during at least 1 previous admission the patient had similar mental status alterations and a urinary tract infection was found to been contributory. For that reason, we have ordered a urinalysis. -The patient has been demonstrating a shuffling gait, and on testing today a substantial degree of cogwheel rigidity was noted. The patient also reports a feeling "jumpy" and "restless." He had been receiving benztropine 0.5 mg twice a day, and while this may have been helpful, it seems not to have been fully effective. We will try trihexyphenidyl 2 mg stat and then 2 mg twice a day, and titrate further as indicated. 10/23 - Titrate clozapine to 25mg qAM and 200mg qHS - continue to hold ziprasidone at this time - Pt continues to reports stiffness and difficulty with ambulation, given that we are continuing to titrate clozapine we will order an additional prn dose of trihexyphenidyl 2mg with consideration to schedule the dose if necessary - UA results reviewed - no indication for current UTI - Will need to continue to discuss appropriate discharge timeline - patient remains suicidal 10/24 - Given concern for confusion, EPS and parkinsonism, morning dose of clozapine was held - Will reduce patient's dose to 150mg qHS and plan for a slower titration. This dosage continues to be subtherapeutic, and patient will require advancement of dose as tolerated - Will discontinue trihexyphenidyl due to concern for urinary retention - will resume benztropine 1mg BID for ongoing stiffness and EPS - Will plan to reduce dose of temazepam to 7.5mg with a one-time repeat if necessary - Pt placed on MNPR due to ambulatory concerns, somewhat disruptive behavior related to his physical complaints, and need for close observation at this time 10/27 --resume low dose Restoril as seems more disorganized with poorer quality sleep, reviewed can impact risk of falls, ?anticholinergic side effects 10/28 --will decrease Cogentin given potential that anticholinergic side effects are worsening his cognition. 10/29 - Will discontinue clozapine at this time - allow patient to clear for a period of time and then consider resuming an antipsychotic medication as he continues to experience auditory hallucinations - Will continue Cogentin, but switch to prn - unlikely to require regularly until/unless an antipsychotic medication is resumed. Agree with concern the medication may increase risk of confusion/falls - Resumed MNPR due to behaviors associated with confusion that are not compatible with and would be disruptive to a roommate at this time 10/30 - holding off starting a different antipsychotic at this time to give time to clear from potential worsening of presentation from clozapine trial, maintained MNPR for now 10/31 plan unchanged for now, consider options to treat psychotic processes that appear ongoing so far while holding for now as potential that medication reaction adding to presentation 11/01 - Continue to hold clozapine - consider alternative antipsychotic agents to target auditory hallucinations which are ongoing - Will allow for a 7.5mg repeat dose of temazepam, as patient continues to report poor sleep. While temazepam may contribute to confusion, poor quality of sleep may be contributing as well. Pt should not receive an additional dose if he is appearing confused or if gait is unstable. - Pt continues to report suicide "it's still an option" if AH continue - he is admitted presently to feeling as though he would seek help before acting on these thoughts - Will need to scheduled discharge planning meeting with the [facility] once patient is appropriate to participate 11/02 - Continue hold on clozapine - will plan to discuss treatment alternatives during treatment team tomorrow morning in order to provide additional time to clear after clozapine initiation. Pt reports no improvement in symptoms since admission and is agreeable with trial of medications to target his auditory hallucinations - he is specifically requesting "Valium three times a day." - Reviewed history of past antipsychotic medication trials: Zyprexa ("is a joke", restlessness, ineffective); Geodon (ineffective); Abilify (ineffective) - Pt reports desire to return to the [facility] after discharge, but continues to report SI and is not cleared for discharge at this time 11/03 - 11/04 -Patient continues to refuse all antipsychotic medication. Advised him that if he is willing for a trial of any medication in his group, to let us know, and he expressed understanding. For now continue temazepam and benztropine as needed for muscle tension. -Continue to attend participate in groups, work on healthy coping skills and discharge safety plan. 11/05 - Pt was cooperative with conversation regarding recommendation for an antipsychotic trial - patient agreeable with perphenazine. Will order 4mg daily to initiated with titration as tolerated. - Pt continues to report muscle stiffness and continues to request ludmila ztropine - given risk of true EPS with antipsychotic retrial, will continue to have this medication available as needed - Continues to report auditory hallucinations contributing to ongoing suicidality; reports he would be unsafe to leave the hospital at this time 11/06 - continue Trilafon trial, hold additional titration as hx of significant EPS when titrated too quickly. 11/07 - Titrate Trilafon to 4 mg BID (2nd dose with evening meal) 11/08 - Maintain current dosage of Trilafon - can continue cautious titration as tolerated - Pt encouraged to focus on safety planning efforts, as he is reporting some improvement in SI and voicing ultimate desire to return to the [facility] 11/09 -file for 306 hearing, to initiate another 305 involuntary commitment, as patient's current commitment will 11/21/2019. This will need to be converted to an IOC at discharge. 11/10 - Discussed titration of Trilafon to 6mg BID starting with this evening's dose - reviewed potential side effects and encouraged patient to report any concerns to staff - Ongoing discussion regarding safety plan for anticipated return to the [facility] - 306 conversion hearing to initiate another 305 is scheduled for 11/17/201911/11 - Continue Trilafon at 6mg BID - denies side effects related to the medication at this time - Pt denied SI yesterday - none yet this morning. He admits to feeling somewhat more positive, but states he is not yet ready for discharge - 306 hearing 11/17/2019 to extend 305 commitment 11/12 - Continue Trilafon 6mg BID - continue further titration as indicated/tolerated, watching for EPS - Pt continues to deny SI, ongoing attempts to engage patient in conversations regarding safety planning - Hearing for extension of 305 commitment - Pt has been offered daily to be escorted outside by staff, patient has consistently declined due to temperature 11/13 Continues to deny suicidal ideation Continue medication regimen unchanged 11/14 Condition remains stable. Continue medication regimen and treatment plan as prescribed. 11/15 - Pt remains stable on 12mg total of perphenazine daily - at patient's request, and to encourage long-term compliance, will adjust dosing to 4mg qAM and 6mg qHS due to ongoing reports of daytime fatigue - Pt reminded of 305 hearing tomorrow morning, states he is planning to attend but not contest - Pt remains agreeable with anticipated discharge for 11/18 - arrangements are being made with the [facility] for transportation and accommodations for his outpatient appointments via telepsych - Maintain MNPR at this time in order to protect sleep and stability of symptoms. Pt is also at high-risk of complications if he were exposed to COVID- 19 and private room will limit close interactions - Pt continues to decline daily offers to have staff accompany him outside, will continue to offer daily (2) Auditory hallucinations: 10/16 -Patient's chief complaint has to do with persistent persecutory auditory hallucinations. He describes the voices as being "electronically generated," and although he tells us that he does not know the source of the electronically generated voices, he says that he has no doubt that they are real and are coming from some entity that is trying to torture and/or kill him. His explanation for the suicide attempt was not that he has been depressed, but, instead, because he feels tortured by the voices and finds that he can no longer tolerate hearing them and no longer tolerate feeling terrorized by them. Patient also explains that he would rather at his own hand than risk being murdered by unknown forces and unknown means. -The patient's condition has been largely treatment resistant to psychiatric medications. With each antipsychotic medication mentioned, the patient's response has been to assert that the specific medicine mentioned has been tried and was not effective, or has been tried and caused worsening symptoms. Today, he asserts that he has taken clozapine in the past, but that it was not effective. He has unable to identify the dose, and does not recall when or where it was prescribed, but says that he believes that he took it for "a month or 2" before it was discontinued as ineffective. Other options for the patient might be a trial of perphenazine or loxapine. For now, the patient has indicated that he would prefer to remain on Geodon 80 mg twice a day. 3/4 - Auditory hallucinations are ongoing. Pt does report that the voices are quieter, but when asked for how long he states "just now, since you asked" - Unclear how reliable patient's reports are on this topic, though it is anticipated ongoing titration of clozapine may be helpful for this 3/5 - Pt more focused on "head buzzing" today, does not mention auditory hallucinations today though this does not mean he is not experiencing them 3/6 -Today, the patient reports that he is troubled both by "a buzzing sound" in both ears, as well as by voices". He tells us that he believes that the voices are being generated by a computer and that the threats that are made through the's "voices" are genuine and represent a mortal danger. He insists that he is being told that he is going to be murdered. -I tried to talk to the patient about the fact that his records, going back many years, speak to the presence of similar perceptual disturbances and similar believes. The patient responds by saying, "they have come close to killing me a number of times. 1 of these days they are going to do it!" -We are discontinuing Geodon today and will be increasing his dose of cl ozapine, beginning tonight. The new dose of clozapine will be 150 mg at bedtime and 25 mg in the morning. We expect that we will need to continue to titrate. We will also reintroduce clozapine, albeit at a lower dose, should his psychiatric condition worsen. Our concern at this point is excess sedation associated with our current cross titration of Geodon and clozapine. 10/23 - Pt denies significant change from above at this time 10/24 - Ongoing, unchanged with current dose of clozapine - pt would likely require further titration of clozapine to therapeutic range; however, this titration must be balanced with concerns the medication may be causing EPS and parkinsonism - Will reduce dose of clozapine to 150mg qHS and suggest reduced pace of titration 10/28 --no change on current dose of Clozaril, will ask Dr. Dorsey to provide second opinion re: use and dose of Clozaril given course in past week. 10/29 - No change in AH at this time 11/03 -Patient continues to refuse all antipsychotic medication. Advised that if he is willing to trial any medication in this group, to let us know, and he agreed. He often refuses medications for a time before choosing 1. 11/05 - Pt now agreeable with a trial of perphenazine to target auditory hallucinations - will start with 4mg daily and titrate as tolerated 11/08 - See treatment plan for "Schizophrenia" above (3) Benzodiazepine abuse: 10/14 - Historical diagnosis of benzodiazepine abuse - Will not continue home dose of alprazolam - but will offer temazepam 15mg qHS for sleep as it has been effective - Will need to consider the safety of this medication regimen, and may suggest discontinuation of benzodiazepines at discharge given his history - Benzodiazepines are not recommended for the patient if he would be discharged to an unsupervised setting or expected to manage his own medication administration 10/16 -The patient is history of benzodiazepine abuse is noted. That history not withstanding, at seems apparent that the only hypnotic medication that has been consistently effective for this patient has been temazepam, and there is no evidence that he has been misusing this medication in the community prior to admission. -The material risks of temazepam, including but not limited to, risk of a physical habituation, risk of complicated and possibly fatal withdrawal sy mptoms, risk of accidents, falls and other injuries, as well as risk of worsening depression and clouded consciousness/cognitive impairment were reviewed with the patient, and he responded by saying, "I know. But it is the only thing that works. I really need to sleep, and without it the voices keep me awake all night." 10/22 -The patient's history of benzodiazepine continues to be noted. However, the patient's current condition, we continue to feel that the use of temazepam for sleep is medically necessary and appropriate. 10/25--d/c temazepam as seems to be contributing to AMS? 11/03--temazepam 7.5 mg at bedtime was resumed 10/28/2019, and patient has continued on that dose, which appears to be helping for sleep. We will need to explore options to ensure safety with this medication at discharge; patient will be returning to the [facility], but in the past has refused to allow staff to hold his medication bottles, which would not be advisable given his substance abuse history and overdose risk. 11/05 - We have been able to confirm with the [facility] that they will hold patient's prescribed medications and distribute accordingly. This plan would reduce risk of patient returning to behaviors of benzodiazepine abuse. (4) Tylenol overdose: 10/14 - Continue management per medical team - Recheck LFTs tomorrow morning. Today, AST 70, ALT 631. 10/15 -Continue to trend down. AST 54, ALT 538. We will reorder LFTs for Saturday. Avoid hepatotoxic agents. 10/16 -Patient reports that he remains suicidal and confirms that his overdose of Tylenol was taken with the intent of causing his own . 11/08 - Focus of this particular problems has shifted toward management of schizophrenia and targeting auditory hallucinations which were reported to have been a trigger for his overdose - Consider this problem itself resolved, though we are continuing to work on safety planning efforts. (5) Hypertension: 10/14 - Home medication includes clonidine 0.1mg qHS - Will continue to monitor blood pressure with daily vitals, consider resuming 10/20 - We have continued daily blood pressures, some of which have been mildly elevated but not consistently - Given increased fatigue and concern for falls related to intermittent unsteadiness with ambulation, will continue to hold clonidine at this time 10/22 -Today, the patient's blood pressure is within normal limits. 11/08 - No active changes to this issue - blood pressure continues to be within reasonable limits despite holding home dose of clonidine - Pt can follow-up with his PCP for ongoing monitoring and management 11/13 - Blood pressure normotensive Risk Factors Assessment Male: Yes : Yes Do You Have Access To A Gun?: No Health Problems: No Mental Health Diagnoses: Yes Substance Use Disorders: Yes Previous Attempt: Yes Family History of Suicide: Yes (cousin) Previous Psychiatric Hospitalization: Yes Hopelessness: Yes Protective Factors Assessment Jewish Beliefs: No : No Responsible for Young Children: No Employed: No Stable Relationships: No Supportive Family: No Good Rapport with Provider: No Interval History Identifying Information SCOTT ROBERTO is a 74-year-old M who currently lives in [place] at the [facility]. Pt has a history of schizophrenia and this is his fourth psychiatric admission to our unit in roughly the last 7 months, with one admission to [place] in that time as well. Pt was admitted on 10/14/19 12:33 on a 201 voluntary commitment after being treated on the medical floor since 10/09/2019 after an intentional Tylenol overdose. 306 conversion hearing was held on 10/16/2019 and his 305 IOC was converted to an inpatient commitment. Chief Complaint "I'm fine. I've spent the last 3 days yawning." Review of Systems Notes Constitutional: reports ongoing daytime fatigue Cardiovascular: denied Respiratory: denied Gastrointestinal: denied Neurological: denied Psychiatric: denies symptoms other than stated above Total of at least 10 systems reviewed, pertinent positives as above and in HPI. Sleep Information Total Hours of Sleep: 7.75 Sleep Comments: pt on q-15 minute checks Meal Information Percent Meal Consumed - Breakfast: 100 Percent Meal Consumed - Lunch: 100 Percent Meal Consumed - Dinner: 100 Subjective Subjective Patient was seen & assessed and interval progress reviewed with treatment team. Staff report the patient continues to participate appropriately in group programming. He continues to interact more with peers, and demonstrating a broader range of affectjoking intermittently. Patient's 89 involuntary commitment hearing is scheduled for 11/17/2019, and arrangements are being made with the [facility] for discharge later this week. Patient was seen today to assess progress since admission. Patient reports that he is "fine." In regard to his weekend, patient states "I have spent the last 3 days yawning." Patient continues to believe that he is experiencing increased daytime fatigue related to his doses of perphenazine. This provider did discuss continuing the same total daily dose, but offered to adjust the medication in a way that reduces his morning dose. Patient states "you might as well try it." Risks and benefits were discussed, and patient verbalized understanding with willingness to weight his dosing of the medication to the evening. Patient continues to deny suicidal ideation. He does admit to ongoing auditory hallucinations, but maintains that the voices are "quieter." Patient continues to be willing for a discharge later this week back to the [facility]. Patient was reminded about his commitment hearing tomorrow morning. He did state that he is planning to attend the hearing, though did not verbalize any plans to contest. Patient reports that sleep continues to be decent, and denies any other needs or concerns at this time. Physical Exam Psychiatric Orientation: alert and cooperative Apperance: appropriately dressed, appropriately groomed and appeared stated age Eye Contact: good eye contact Motor Behavior: steady gait and station and no abnormal motor movements Speech: normal rate/rhythm/volume of speech (Brief responses to questions) Affect: + blunted affect (Has been mildly more reactive, smiling and joking intermittently) Mood: no depressed mood ("I'm fine") Thought Process: goal directed thought process and + concrete thought process Thought Content: no delusions (Patient does not verbalize any delusional thought content) and no hopelessness Suicidal Thoughts: denies suicidal thoughts and denies suicidal intent Homicidal Thoughts: denies homicidal thoughts Hallucinations: + auditory hallucinations (Ongoing auditory hallucinations, continued to be "quieter"); no visual hallucinations Cognition: attention grossly intact and language grossly intact Insight: + limited insight (Likely related to chronic mental health conditions) Judgement: + limited judgement (Likely related to chronic mental health conditions) Vital Signs (Past 24 Hours) Last Vital Signs Temp 36.3 C L 11/16/19 06:43 Pulse 73 11/16/19 06:43 Resp 18 11/16/19 06:43 BP 119/72 11/16/19 06:43 Pulse Ox 96 10/22/19 23:30 Results & Data ([facility]) Current Inpatient Medications Current Inpatient Medications: Current Inpatient Medications Acetaminophen (Tylenol) 650 mg PO Q4H PRN PRN Reason: Headache or Minor Fever Stop: 12/14/19 09:24 Al Hydrox/Mg Hydrox/Simethicone (Maalox) 30 ml PO Q4H PRN PRN Reason: GI Upset Stop: 12/14/19 09:24 Benztropine Mesylate (Cogentin) 0.5 mg PO DAILY PRN PRN Reason: EPS/restlessness Stop: 11/29/19 11:31 Last Admin: 11/10/19 16:21 Dose: 0.5 mg Documented by: Bismuth Subsalicylate (Kaopectate) 15 ml PO PRN PRN PRN Reason: Loose Stool Stop: 12/14/19 09:24 Docusate Sodium (Colace) 100 mg PO BID [facility] Stop: 12/14/19 09:59 Last Admin: 11/16/19 07:53 Dose: 100 mg Documented by: Hydroxyzine HCl (Vistaril) 50 mg PO HSZ PRN PRN Reason: Insomnia Stop: 12/14/19 09:24 Hydroxyzine HCl (Vistaril) 25 mg PO Q4H PRN PRN Reason: Anxiety Stop: 12/14/19 09:24 Magnesium Hydroxide (Milk Of Magnesia) 30 ml PO DAILY PRN PRN Reason: Constipation Stop: 12/14/19 09:24 Magnesium Oxide (Mag-Ox) 400 mg PO QAM MAG Stop: 12/14/19 09:59 Last Admin: 11/16/19 07:52 Dose: 400 mg Documented by: Perphenazine (Trilafon) 4 mg PO QAM MAG Stop: 12/17/19 08:59 Perphenazine (Trilafon) 8 mg PO 1700 [facility] Stop: 12/16/19 16:59 Polyethylene Glycol (Miralax Powder Packet) 17 gm PO DAILY PRN PRN Reason: Constipation Stop: 12/14/19 09:16 Potassium Chloride (Klor-Con M20) 20 meq PO QAM MAG Stop: 12/14/19 09:59 Last Admin: 11/16/19 07:52 Dose: 20 meq Documented by: Senna/Docusate Sodium (Senokot S) 1 tab PO QAM MAG Stop: 12/14/19 09:59 Last Admin: 11/16/19 07:53 Dose: 1 tab Documented by: Sodium Chloride (Trego Nasal) 1 - 2 sprays NA PRN PRN PRN Reason: Nasal Dryness/Congestion Stop: 12/14/19 09:24 Temazepam (Restoril) 7.5 mg PO HSZ MAG Stop: 11/27/19 21:59 Last Admin: 11/15/19 20:38 Dose: 7.5 mg Documented by: Mental Health & Subst Abuse Tx Psychiatrist Name of Psychiatrist: [facility] - Dr. Alves Psychiatrist's Date of Appointment with Psychiatrist: 11/23/19 Time of Appointment with Psychiatrist: 4:40pm Psychiatric Appointment Comment: They will call you at the [facility] number and you can call right back if needed Therapist Name of Therapist: none [employer] And Explosives Handler Name of Ammunition And Explosives Handler: Shruti Mcbride Phone Number for Ammunition And Explosives Handler: [phone] Case Management Appointment Comment: Comes to see you at the [facility] Post Discharge Appointments Primary Care Physician Name Of Family Doctor: [facility] - Dr. Jeff Lopez Primary Care Provider Appointment Comment: [address], [address], [place] [address] Neurologist Name of Neurologist: [facility] - Dr. Caal Neurologist's Date of Appointment with Neurologist: 02/02/20 Time of Appointment with Neurologist: 10:00 a.m. Neurology Appointment Comment: [address], [place] [address] Contact Information Discharge Discharge Address: [address] [place] [address], [place] [address] Contact Information Comment: [facility] (1) Schizophrenia Schizophrenia type: paranoid schizophrenia Qualified Code(s): F20.0 - Paranoid schizophrenia (2) Hypertension Hypertension type: essential hypertension Qualified Code(s): I10 - Essential (primary) hypertension
[2019-11-16] MEDS: TEMAZEPAM 7.5 MG CAPSULE PO SCH (20:27)
[2019-11-17] MEDS: DOCUSATE SODIUM 100 MG CAP PO SCH ×2 (08:17→20:14)
[2019-11-17] MEDS: DOCUSATE SODIUM/SENNA 50/8.6MG TAB PO SCH (08:18)
[2019-11-17] MEDS: PERPHENAZINE 2 MG TABLET PO SCH ×2 (08:18→17:01)
[2019-11-17] MEDS: POTASSIUM CHLORIDE 20 MEQ TABCR PO SCH (08:18)
[2019-11-17] MEDS: MAGNESIUM OXIDE 400 MG TAB PO SCH (08:18)
--- NOTE | 2019-11-17 08:54 | Psychiatric Progress Note ---
Date of Service November 17, 2019 Impression / Recommendations Impression 74-year-old male with chronic schizophrenia who presented 10/08/2019 after he was found unresponsive at the [facility] and admitted to taking a massive, potentially lethal Tylenol overdose in an attempt to end his life. Admitted to the hospitalist service for 6 days, and transferred voluntarily to our unit on 10/14/19. He was on an involuntary 305 outpatient commitment which was converted to inpatient on 10/16/19 (expires 11/21/2019), and we are filing for a another 305 hearing scheduled for 11/17/2019, as he requires ongoing involuntary commitment, both in the hospital and then as an outpatient when he is discharged. He has had numerous medication changes: Mirtazapine and Xanax were discontinued as he reported they were ineffective. He was started on temazepam while on the hospitalist service for reports of poor sleep, and this medication appears to be effective, although he continues to report poor sleep. We will need to consider safety concerns at discharge, given his history of benzodiazepine abuse and ch ronic suicidality/overdose risk, CRR staff did confirm they would hold these medications in order to reduce risk. He was initially placed back on ziprasidone, but reported it was ineffective and agreed to a retrial of Clozaril 10/17, however, trial was halted on 10/29 when patient demonstrated increased confusion and EPS. He refused antipsychotic medication for a week, and agreed to start a trial of perphenazine on 11/06/2019. He continues to report command auditory hallucinations though does admit the voices are "quieter", he has continued to deny SI. 305 hearing held and granted today - discharge plans are being coordinated with the [facility] and a / discharge is anticipated. (1) Schizophrenia: 10/14 - Continue ziprasidone as initiated on the medical floor - resume 80mg BID dosing with meals - Continue benztropine 0.5mg as needed for reports of stiffness, though it remains unclear if this is truly related to his antipsychotic medication - Mirtazapine was discontinued on the medical floor as patient feels it had been ineffective - Continue temazepam 15mg qHS for sleep - at least while hospitalized in a supervised setting, as patient has a history of benzodiazepine abuse - Will coordinate treatment with patient's outpatient psychiatric supports - Encourage participation in group and recreational programming 10/15 -Continue ziprasidone; reviewed fasting lipid profile and fasting glucose from 02/2019, all values were within normal limits. -Discussed trial of clozapine; patient states that he believes he was on this medication in the past and that it was ineffective. Continue to provide education and encourage retrial, as he has had limited response to multiple other antipsychotics, and it would also help address suicidal thoughts in addition to psychosis. -Involve outpatient housing case manager and coordinate with psychiatrist, Dr. Alves. 10/16 -The plan is to continue ziprasidone 80 mg twice a day. We discussed other treatment options with the patient, and he says that he is not interested in trying the various options suggested. He tends to respond in the affirmative every time he is asked whether he has ever taken a number of specific medications, and replies in each instance "it did not help." He does say, somewhat convincingly, that he took clozapine (dose unspecified and unknown by the patient) a number of years ago for "a month or 2," and that it did not help. Re-challenging the patient with clozapine may be helpful, but at present the patient indicates that he will refuse to take it. -The patient hesitates when asked about loxapine and perphenazine, but then says that he has taken both. Loxapine is not on the hospital formulary. Today, the patient says that he is not interested in trying either of these medications "again." -Today, the patient tells us that he "really does not" [facility] although he had previously said that he might be interested in doing that. He adds that he does feel safer in a hospital, but feels that he would like to work towards being able to be discharged back to the community at this point. 10/17 --reconsented for retrial of Clozaril following review of CBC and EKG, patient aware to monitor constipation and sialorrhea and notify staff. will dose at hs and titrate by 25 mg nightly, repeat CBC in 1 week. 10/18--titrate Clozaril to 50 mg po qhs, Dr. Campos notified to consider EKG for repeat QTC on med combo as dose is increased, EPS apparently predates start of Clozaril and is not new, he is agreeable to add 0.5 mg Cogentin standing order as trial basis. 10/19 - Continue clozapine titration (now ordered for automatic titration of 25mg each evening), pt to receive 75mg tonight - Pt reports his condition remains unchanged at this time, but is aware that clozapine will need to be titrated to an effective dose range - At this time, patient maintains his desire would be for eventual discharge back to the [facility] - no longer requesting [facility] referral - He remains suicidal and continues to report head buzzing and auditory hallucinations that are overwhelming to him 10/20 - Continue clozapine titration - pt to receive 100mg tonight - Will reduce ziprasidone to 60mg BID given continued titration of clozapine and reported ineffectiveness of the medication - will order an EKG for tomorrow morning, given cross-titration putting patient at increased risk of QTc prolongation. - Ongoing discussions regarding discharge planning - Pt continues to verbalize SI and feels he cannot contract for safety outside of the hospital setting 10/21 - Clozapine to be titrated to 125mg this evening; will continue ziprasidone 60mg BID for now though can consider ongoing taper - EKG ordered this morning, and reviewed QTc 445 - Reports ongoing SI - stating he is "pretty d*mn close" to wanting to - Discharge planning meeting scheduled for tomorrow 10/22 -Discharge remaining has been postponed. -Ziprasidone was held this morning, and the patient's cognition seems to have cleared. He is fully oriented and has not shown evidence of confusion. The patient, himself, notes that his thinking does seem to be more clear than it had been. -We will further titrate clozapine 250 mg at bedtime and 25 mg in the morning. -Because of persistent disturbing auditory hallucinations that the patient reports prevent him from easily inducing and maintaining sleep we will increase his dose of temazepam from 15 mg at bedtime for sleep to a dose of 22.5 mg at bedtime as needed sleep. -Although the patient's cognition seems to have improved, staff recall that during at least 1 previous admission the patient had similar mental status alterations and a urinary tract infection was found to been contributory. For that reason, we have ordered a urinalysis. -The patient has been demonstrating a shuffling gait, and on testing today a substantial degree of cogwheel rigidity was noted. The patient also reports a feeling "jumpy" and "restless." He had been receiving benztropine 0.5 mg twice a day, and while this may have been helpful, it seems not to have been fully effective. We will try trihexyphenidyl 2 mg stat and then 2 mg twice a day, and titrate further as indicated. 10/23 - Titrate clozapine to 25mg qAM and 200mg qHS - continue to hold ziprasidone at this time - Pt continues to reports stiffness and difficulty with ambulation, given that we are continuing to titrate clozapine we will order an additional prn dose of trihexyphenidyl 2mg with consideration to schedule the dose if necessary - UA results reviewed - no indication for current UTI - Will need to continue to discuss appropriate discharge timeline - patient remains suicidal 10/24 - Given concern for confusion, EPS and parkinsonism, morning dose of clozapine was held - Will reduce patient's dose to 150mg qHS and plan for a slower titration. This dosage continues to be subtherapeutic, and patient will require advancement of dose as tolerated - Will discontinue trihexyphenidyl due to concern for urinary retention - will resume benztropine 1mg BID for ongoing stiffness and EPS - Will plan to reduce dose of temazepam to 7.5mg with a one-time repeat if necessary - Pt placed on MNPR due to ambulatory concerns, somewhat disruptive behavior related to his physical complaints, and need for close observation at this time 10/27 --resume low dose Restoril as seems more disorganized with poorer quality sleep, reviewed can impact risk of falls, ?anticholinergic side effects 10/28 --will decrease Cogentin given potential that anticholinergic side effects are worsening his cognition. 10/29 - Will discontinue clozapine at this time - allow patient to clear for a period of time and then consider resuming an antipsychotic medication as he continues to experience auditory hallucinations - Will continue Cogentin, but switch to prn - unlikely to require regularly until/unless an antipsychotic medication is resumed. Agree with concern the medication may increase risk of confusion/falls - Resumed MNPR due to behaviors associated with confusion that are not compatible with and would be disruptive to a roommate at this time 10/30 - holding off starting a different antipsychotic at this time to give time to clear from potential worsening of presentation from clozapine trial, maintained MNPR for now 10/31 plan unchanged for now, consider options to treat psychotic processes that appear ongoing so far while holding for now as potential that medication reaction adding to presentation 11/01 - Continue to hold clozapine - consider alternative antipsychotic agents to target auditory hallucinations which are ongoing - Will allow for a 7.5mg repeat dose of temazepam, as patient continues to report poor sleep. While temazepam may contribute to confusion, poor quality of sleep may be contributing as well. Pt should not receive an additional dose if he is appearing confused or if gait is unstable. - Pt continues to report suicide "it's still an option" if AH continue - he is admitted presently to feeling as though he would seek help before acting on these thoughts - Will need to scheduled discharge planning meeting with the [facility] once patient is appropriate to participate 11/02 - Continue hold on clozapine - will plan to discuss treatment alternatives during treatment team tomorrow morning in order to provide additional time to clear after clozapine initiation. Pt reports no improvement in symptoms since admission and is agreeable with trial of medications to target his auditory hallucinations - he is specifically requesting "Valium three times a day." - Reviewed history of past antipsychotic medication trials: Zyprexa ("is a joke", restlessness, ineffective); Geodon (ineffective); Abilify (ineffective) - Pt reports desire to return to the [facility] after discharge, but continues to report SI and is not cleared for discharge at this time 11/03 - 11/04 -Patient continues to refuse all antipsychotic medication. Advised him that if he is willing for a trial of any medication in his group, to let us know, and he expressed understanding. For now continue temazepam and benztropine as needed for muscle tension. -Continue to attend participate in groups, work on healthy coping skills and discharge safety plan. 11/05 - Pt was cooperative with conversation regarding recommendation for an antip sychotic trial - patient agreeable with perphenazine. Will order 4mg daily to initiated with titration as tolerated. - Pt continues to report muscle stiffness and continues to request benztropine - given risk of true EPS with antipsychotic retrial, will continue to have this medication available as needed - Continues to report auditory hallucinations contributing to ongoing suicidality; reports he would be unsafe to leave the hospital at this time 11/06 - continue Trilafon trial, hold additional titration as hx of significant EPS when titrated too quickly. 11/07 - Titrate Trilafon to 4 mg BID (2nd dose with evening meal) 11/08 - Maintain current dosage of Trilafon - can continue cautious titration as tolerated - Pt encouraged to focus on safety planning efforts, as he is reporting some improvement in SI and voicing ultimate desire to return to the [facility]R 11/09 -file for 306 hearing, to initiate another 305 involuntary commitment, as patient's current commitment will 11/21/2019. This will need to be converted to an IOC at discharge. 11/10 - Discussed titration of Trilafon to 6mg BID starting with this evening's dose - reviewed potential side effects and encouraged patient to report any concerns to staff - Ongoing discussion regarding safety plan for anticipated return to the [facility] - 306 conversion hearing to initiate another 305 is scheduled for 11/17/201911/11 - Continue Trilafon at 6mg BID - denies side effects related to the medication at this time - Pt denied SI yesterday - none yet this morning. He admits to feeling somewhat more positive, but states he is not yet ready for discharge - 306 hearing 11/17/2019 to extend 305 commitment 11/12 - Continue Trilafon 6mg BID - continue further titration as indicated/tolerated, watching for EPS - Pt continues to deny SI, ongoing attempts to engage patient in conversations regarding safety planning - Hearing for extension of 305 commitment - Pt has been offered daily to be escorted outside by staff, patient has consistently declined due to temperature 11/13 Continues to deny suicidal ideation Continue medication regimen unchanged 11/14 Condition remains stable. Continue medication regimen and treatment plan as prescribed. 11/15 - Pt remains stable on 12mg total of perphenazine daily - at patient's request, and to encourage long-term compliance, will adjust dosing to 4mg qAM and 6mg qHS due to ongoing reports of daytime fatigue - Pt reminded of 305 hearing tomorrow morning, states he is planning to attend but not contest - Pt remains agreeable with anticipated discharge for 11/18 - arrangements are being made with the [facility] for transportation and accommodations for his outpatient appointments via telepsych - Maintain MNPR at this time in order to protect sleep and stability of symptoms. Pt is also at high-risk of complications if he were exposed to COVID- 19 and private room will limit close interactions - Pt continues to decline daily offers to have staff accompany him outside, w ill continue to offer daily 11/16 -Continue perphenazine and temazepam. -305 granted today, will convert to an IOC at discharge. (2) Auditory hallucinations: 10/16 -Patient's chief complaint has to do with persistent persecutory auditory hallucinations. He describes the voices as being "electronically generated," and although he tells us that he does not know the source of the electronically generated voices, he says that he has no doubt that they are real and are coming from some entity that is trying to torture and/or kill him. His explanation for the suicide attempt was not that he has been depressed, but, instead, because he feels tortured by the voices and finds that he can no longer tolerate hearing them and no longer tolerate feeling terrorized by them. Patient also explains that he would rather at his own hand than risk being murdered by unknown forces and unknown means. -The patient's condition has been largely treatment resistant to psychiatric medications. With each antipsychotic medication mentioned, the patient's response has been to assert that the specific medicine mentioned has been tried and was not effective, or has been tried and caused worsening symptoms. Today, he asserts that he has taken clozapine in the past, but that it was not effective. He has unable to identify the dose, and does not recall when or where it was prescribed, but says that he believes that he took it for "a month or 2" before it was discontinued as ineffective. Other options for the patient might be a trial of perphenazine or loxapine. For now, the patient has indicated that he would prefer to remain on Geodon 80 mg twice a day. 3/4 - Auditory hallucinations are ongoing. Pt does report that the voices are quieter, but when asked for how long he states "just now, since you asked" - Unclear how reliable patient's reports are on this topic, though it is anticipated ongoing titration of clozapine may be helpful for this 3/5 - Pt more focused on "head buzzing" today, does not mention auditory hallucinations today though this does not mean he is not experiencing them 3/6 -Today, the patient reports that he is troubled both by "a buzzing sound" in both ears, as well as by voices". He tells us that he believes that the voices are being generated by a computer and that the threats that are made through the's "voices" are genuine and represent a mortal danger. He insists that he is being told that he is going to be murdered. -I tried to talk to the patient about the fact that his records, going back many years, speak to the presence of similar perceptual disturbances and similar believes. The patient responds by saying, "they have come close to killing me a number of times. 1 of these days they are going to do it!" -We are discontinuing Geodon today and will be increasing his dose of clozapine, beginning tonight. The new dose of clozapine will be 150 mg at bedtime and 25 mg in the morning. We expect that we will need to continue to titrate. We will also reintroduce clozapine, albeit at a lower dose, should his psychiatric condition worsen. Our concern at this point is excess sedation associated with our current cross titration of Geodon and clozapine. 10/23 - Pt denies significant change from above at this time 10/24 - Ongoing, unchanged with current dose of clozapine - pt would likely require further titration of clozapine to therapeutic range; however, this titration must be balanced with concerns the medication may be causing EPS and parkinsonism - Will reduce dose of clozapine to 150mg qHS and suggest reduced pace of titration 10/28 --no change on current dose of Clozaril, will ask Dr. Dorsey to provide second opinion re: use and dose of Clozaril given course in past week. 10/29 - No change in AH at this time 11/03 -Patient continues to refuse all antipsychotic medication. Advised that if he is willing to trial any medication in this group, to let us know, and he agreed. He often refuses medications for a time before choosing 1. 11/05 - Pt now agreeable with a trial of perphenazine to target auditory hallucinations - will start with 4mg daily and titrate as tolerated 11/08 - See treatment plan for "Schizophrenia" above (3) Benzodiazepine abuse: 10/14 - Historical diagnosis of benzodiazepine abuse - Will not continue home dose of alprazolam - but will offer temazepam 15mg qHS for sleep as it has been effective - Will need to consider the safety of this medication regimen, and may suggest discontinuation of benzodiazepines at discharge given his history - Benzodiazepines are not recommended for the patient if he would be discharged to an unsupervised setting or expected to manage his own medication administration 10/16 -The patient is history of benzodiazepine abuse is noted. That history not withstanding, at seems apparent that the only hypnotic medication that has been consistently effective for this patient has been temazepam, and there is no evidence that he has been misusing this medication in the community prior to admission. -The material risks of temazepam, including but not limited to, risk of a physical habituation, risk of complicated and possibly fatal withdrawal symptoms, risk of accidents, falls and other injuries, as well as risk of worsening depression and clouded consciousness/cognitive impairment were reviewed with the patient, and he responded by saying, "I know. But it is the only thing that works. I really need to sleep, and without it the voices keep me awake all night." 10/22 -The patient's history of benzodiazepine continues to be noted. However, the patient's current condition, we continue to feel that the use of temazepam for sleep is medically necessary and appropriate. 10/25--d/c temazepam as seems to be contributing to AMS? 11/03--temazepam 7.5 mg at bedtime was resumed 10/28/2019, and patient has continued on that dose, which appears to be helping for sleep. We will need to explore options to ensure safety with this medication at discharge; patient will be returning to the [facility], but in the past has refused to allow staff to hold his medication bottles, which would not be advisable given his substance abuse history and overdose risk. 11/05 - We have been able to confirm with the [facility] that they will hold patient's prescribed medications and distribute accordingly. This plan would reduce risk of patient returning to behaviors of benzodiazepine abuse. (4) Tylenol overdose: 10/14 - Continue management per medical team - Recheck LFTs tomorrow morning. Today, AST 70, ALT 631. 10/15 -Continue to trend down. AST 54, ALT 538. We will reorder LFTs for Saturday. Avoid hepatotoxic agents. 10/16 -Patient reports that he remains suicidal and confirms that his overdose of Tylenol was taken with the intent of causing his own . 11/08 - Focus of this particular problems has shifted toward management of schizophrenia and targeting auditory hallucinations which were reported to have been a trigger for his overdose - Consider this problem itself resolved, though we are continuing to work on safety planning efforts. (5) Hypertension: 10/14 - Home medication includes clonidine 0.1mg qHS - Will continue to monitor blood pressure with daily vitals, consider resuming 10/20 - We have continued daily blood pressures, some of which have been mildly elevated but not consistently - Given increased fatigue and concern for falls related to intermittent unsteadiness with ambulation, will continue to hold clonidine at this time 10/22 -Today, the patient's blood pressure is within normal limits. 11/08 - No active changes to this issue - blood pressure continues to be within reasonable limits despite holding home dose of clonidine - Pt can follow-up with his PCP for ongoing monitoring and management 11/13 - Blood pressure normotensive Risk Factors Assessment Male: Yes : Yes Do You Have Access To A Gun?: No Health Problems: No Mental Health Diagnoses: Yes Substance Use Disorders: Yes Previous Attempt: Yes Family History of Suicide: Yes (cousin) Previous Psychiatric Hospitalization: Yes Hopelessness: Yes Protective Factors Assessment [employer] Beliefs: No : No Responsible for Young Children: No Employed: No Stable Relationships: No Supportive Family: No Good Rapport with Provider: No Interval History Identifying Information SCOTT ROBERTO is a 74-year-old M who currently lives in [place] at the [facility]. Pt has a history of schizophrenia and this is his fourth psychiatric admission to our unit in roughly the last 7 months, with one admission to [facility] in that time as well. Pt was admitted on 10/14/19 12:33 on a 201 voluntary commitment after being treated on the medical floor since 10/09/2019 after an intentional Tylenol overdose. 306 conversion hearing was held on 10/16/2019 and his 305 IOC was converted to an inpatient commitment. Chief Complaint "Fine". Review of Systems Sleep Information Total Hours of Sleep: 6.5 Sleep Comments: pt on q-15 minute checks Meal Information Percent Meal Consumed - Breakfast: 100 Percent Meal Consumed - Lunch: 100 Percent Meal Consumed - Dinner: 100 Subjective Subjective Patient was seen & assessed and interval progress reviewed with nursing and social work. Staff report he is attending and participating in groups, taking medication as prescribed, and interacting appropriately with staff and peers. On my assessment, he reports mood continues to improve, and auditory hallucinations continue to decrease. He states that they are less frequent, and quieter, and he feels better able to ignore them or distract himself. He denies active suicidal thoughts, and states he is planning to [facility] to the [facility], and thinks he will be ready for discharge in 2 days. He is tolerating his medications well with the exception of some mild daytime sedation, and is in favor with waiting dosing at bedtime to avoid this. Physical Exam Psychiatric Orientation: alert and cooperative Apperance: appropriately dressed, appropriately groomed and appeared stated age Eye Contact: good eye contact Motor Behavior: steady gait and station and no abnormal motor movements Speech: normal rate/rhythm/volume of speech Affect: + blunted affect (But smiles appropriately, improved from earlier in stay) "Fine." Thought Process: goal directed thought process Thought Content: reality based without delusions Suicidal Thoughts: denies suicidal thoughts Homicidal Thoughts: denies homicidal thoughts Hallucinations: + auditory hallucinations Cognition: recent memory grossly intact, attention grossly intact and language grossly intact Insight: + fair insight Judgement: + fair judgement Vital Signs (Past 24 Hours) Last Vital Signs Temp 37 C 11/17/19 06:29 Pulse 82 11/17/19 06:29 Resp 18 11/17/19 06:29 BP 132/80 11/17/19 06:29 Pulse Ox 96 10/22/19 23:30 Results & Data ([facility]) Current Inpatient Medications Current Inpatient Medications: Current Inpatient Medications Acetaminophen (Tylenol) 650 mg PO Q4H PRN PRN Reason: Headache or Minor Fever Stop: 12/14/19 09:24 Al Hydrox/Mg Hydrox/Simethicone (Maalox) 30 ml PO Q4H PRN PRN Reason: GI Upset Stop: 12/14/19 09:24 Benztropine Mesylate (Cogentin) 0.5 mg PO DAILY PRN PRN Reason: EPS/restlessness Stop: 11/29/19 11:31 Last Admin: 11/10/19 16:21 Dose: 0.5 mg Documented by: Bismuth Subsalicylate (Kaopectate) 15 ml PO PRN PRN PRN Reason: Loose Stool Stop: 12/14/19 09:24 Docusate Sodium (Colace) 100 mg PO BID MAG Stop: 12/14/19 09:59 Last Admin: 11/17/19 08:17 Dose: 100 mg Documented by: Hydroxyzine HCl (Vistaril) 50 mg PO HSZ PRN PRN Reason: Insomnia Stop: 12/14/19 09:24 Hydroxyzine HCl (Vistaril) 25 mg PO Q4H PRN PRN Reason: Anxiety Stop: 12/14/19 09:24 Magnesium Hydroxide (Milk Of Magnesia) 30 ml PO DAILY PRN PRN Reason: Constipation Stop: 12/14/19 09:24 Magnesium Oxide (Mag-Ox) 400 mg PO QAM [facility] Stop: 12/14/19 09:59 Last Admin: 11/17/19 08:18 Dose: 400 mg Documented by: Perphenazine (Trilafon) 4 mg PO QAM [facility] Stop: 12/17/19 08:59 Last Admin: 11/17/19 08:18 Dose: 4 mg Documented by: Perphenazine (Trilafon) 8 mg PO 1700 [facility] Stop: 12/16/19 16:59 Last Admin: 11/16/19 17:23 Dose: 8 mg Documented by: Polyethylene Glycol (Miralax Powder Packet) 17 gm PO DAILY PRN PRN Reason: Constipation Stop: 12/14/19 09:16 Potassium Chloride (Klor-Con M20) 20 meq PO QAM [facility] Stop: 12/14/19 09:59 Last Admin: 11/17/19 08:18 Dose: 20 meq Documented by: Senna/Docusate Sodium (Senokot S) 1 tab PO QAM [facility] Stop: 12/14/19 09:59 Last Admin: 11/17/19 08:18 Dose: 1 tab Documented by: Sodium Chloride ([place] Nasal) 1 - 2 sprays NA PRN PRN PRN Reason: Nasal Dryness/Congestion Stop: 12/14/19 09:24 Temazepam (Restoril) 7.5 mg PO HSZ [facility] Stop: 11/27/19 21:59 Last Admin: 11/16/19 20:27 Dose: 7.5 mg Documented by: Mental Health & Subst Abuse Tx Psychiatrist Name of Psychiatrist: [facility] - Dr. Alves Psychiatrist's Date of Appointment with Psychiatrist: 11/23/19 Time of Appointment with Psychiatrist: 4:40pm Psychiatric Appointment Comment: They will call you at the [facility] number and you can call right back if needed Therapist Name of Therapist: none Electrical Logging Operator Name of Electrical Logging Operator: Shruti Mcbride Phone Number for Electrical Logging Operator: [phone] Case Management Appointment Comment: He will have regular phone calls with you Post Discharge Appointments Primary Care Physician Name Of Family Doctor: [facility] - Dr. Jeff Lopez Primary Care Provider Appointment Comment: [address], [address], [place] [address] Neurologist Name of Neurologist[place] [facility] [place]. Caal Neurologist's Date of Appointment with Neurologist: 02/02/20 Time of Appointment with Neurologist: 10:00 a.m. Neurology Appointment Comment: [address], [place] [address] Contact Information Discharge Discharge Address: [address], [place] [address] Contact Information Comment: JERRELL BRYAN (1) Schizophrenia Schizophrenia type: paranoid schizophrenia Qualified Code(s): F20.0 - Paranoid schizophrenia (2) Hypertension Hypertension type: essential hypertension Qualified Code(s): I10 - Essential (primary) hypertension
[2019-11-17] MEDS: TEMAZEPAM 7.5 MG CAPSULE PO SCH (20:14)
[2019-11-18] MEDS: PERPHENAZINE 2 MG TABLET PO SCH ×2 (08:40→17:07)
[2019-11-18] MEDS: DOCUSATE SODIUM/SENNA 50/8.6MG TAB PO SCH (08:40)
[2019-11-18] MEDS: MAGNESIUM OXIDE 400 MG TAB PO SCH (08:40)
[2019-11-18] MEDS: POTASSIUM CHLORIDE 20 MEQ TABCR PO SCH (08:40)
[2019-11-18] MEDS: DOCUSATE SODIUM 100 MG CAP PO SCH ×2 (08:40→20:22)
--- NOTE | 2019-11-18 10:20 | Psychiatric Progress Note ---
Date of Service November 18, 2019 Impression / Recommendations Impression 74-year-old male with chronic schizophrenia who presented 10/08/2019 after he was found unresponsive at the [facility] and admitted to taking a massive, potentially lethal Tylenol overdose in an attempt to end his life. Admitted to the hospitalist service for 6 days, and transferred voluntarily to our unit on 10/14/19. He was on an involuntary 305 outpatient commitment which was converted to inpatient on 10/16/19 (expires 11/21/2019), and we are filing for a another 305 hearing scheduled for 11/17/2019, as he requires ongoing involuntary commitment, both in the hospital and then as an outpatient when he is discharged. He has had numerous medication changes: Mirtazapine and Xanax were discontinued as he reported they were ineffective. He was started on temazepam while on the hospitalist service for reports of poor sleep, and this medication appears to be effective, although he continues to report poor sleep. We will need to consider safety concerns at discharge, given his history of benzodiazepine abuse and chr onic suicidality/overdose risk, CRR staff did confirm they would hold these medications in order to reduce risk. He was initially placed back on ziprasidone, but reported it was ineffective and agreed to a retrial of Clozaril 10/17, however, trial was halted on 10/29 when patient demonstrated increased confusion and EPS. He refused antipsychotic medication for a week, and agreed to start a trial of perphenazine on 11/06/2019. He continues to report command auditory hallucinations though does admit the voices are "quieter", he has continued to deny SI. 305 has been extended - discharge plans are being coordinated with the [facility] and a / discharge is anticipated. (1) Schizophrenia: 10/14 - Continue ziprasidone as initiated on the medical floor - resume 80mg BID dosing with meals - Continue benztropine 0.5mg as needed for reports of stiffness, though it remains unclear if this is truly related to his antipsychotic medication - Mirtazapine was discontinued on the medical floor as patient feels it had been ineffective - Continue temazepam 15mg qHS for sleep - at least while hospitalized in a supervised setting, as patient has a history of benzodiazepine abuse - Will coordinate treatment with patient's outpatient psychiatric supports - Encourage participation in group and recreational programming 10/15 -Continue ziprasidone; reviewed fasting lipid profile and fasting glucose from 02/2019, all values were within normal limits. -Discussed trial of clozapine; patient states that he believes he was on this medication in the past and that it was ineffective. Continue to provide education and encourage retrial, as he has had limited response to multiple other antipsychotics, and it would also help address suicidal thoughts in spencer tion to psychosis. -Involve outpatient casework specialist and coordinate with psychiatrist, Dr. Alves. 10/16 -The plan is to continue ziprasidone 80 mg twice a day. We discussed other treatment options with the patient, and he says that he is not interested in trying the various options suggested. He tends to respond in the affirmative every time he is asked whether he has ever taken a number of specific medications, and replies in each instance "it did not help." He does say, somewhat convincingly, that he took clozapine (dose unspecified and unknown by the patient) a number of years ago for "a month or 2," and that it did not help. Re-challenging the patient with clozapine may be helpful, but at present the patient indicates that he will refuse to take it. -The patient hesitates when asked about loxapine and perphenazine, but then says that he has taken both. Loxapine is not on the hospital formulary. Today, the patient says that he is not interested in trying either of these medications "again." -Today, the patient tells us that he "really does not" [facility] although he had previously said that he might be interested in doing that. He adds that he does feel safer in a hospital, but feels that he would like to work towards being able to be discharged back to the community at this point. 10/17 --reconsented for retrial of Clozaril following review of CBC and EKG, patient aware to monitor constipation and sialorrhea and notify staff. will dose at hs and titrate by 25 mg nightly, repeat CBC in 1 week. 10/18--titrate Clozaril to 50 mg po qhs, Dr. Campos notified to consider EKG for repeat QTC on med combo as dose is increased, EPS apparently predates start of Clozaril and is not new, he is agreeable to add 0.5 mg Cogentin standing order as trial basis. 10/19 - Continue clozapine titration (now ordered for automatic titration of 25mg each evening), pt to receive 75mg tonight - Pt reports his condition remains unchanged at this time, but is aware that clozapine will need to be titrated to an effective dose range - At this time, patient maintains his desire would be for eventual discharge back to the [facility] - no longer requesting [facility] referral - He remains suicidal and continues to report head buzzing and auditory hallucinations that are overwhelming to him 10/20 - Continue clozapine titration - pt to receive 100mg tonight - Will reduce ziprasidone to 60mg BID given continued titration of clozapine and reported ineffectiveness of the medication - will order an EKG for tomorrow morning, given cross-titration putting patient at increased risk of QTc prolongation. - Ongoing discussions regarding discharge planning - Pt continues to verbalize SI and feels he cannot contract for safety outside of the hospital setting 10/21 - Clozapine to be titrated to 125mg this evening; will continue ziprasidone 60mg BID for now though can consider ongoing taper - EKG ordered this morning, and reviewed QTc 445 - Reports ongoing SI - stating he is "pretty d*mn close" to wanting to - Discharge planning meeting scheduled for tomorrow 10/22 -Discharge remaining has been postponed. -Ziprasidone was held this morning, and the patient's cognition seems to have cleared. He is fully oriented and has not shown evidence of confusion. The patient, himself, notes that his thinking does seem to be more clear than it had been. -We will further titrate clozapine 250 mg at bedtime and 25 mg in the morning. -Because of persistent disturbing auditory hallucinations that the patient reports prevent him from easily inducing and maintaining sleep we will increase his dose of temazepam from 15 mg at bedtime for sleep to a dose of 22.5 mg at bedtime as needed sleep. -Although the patient's cognition seems to have improved, staff recall that during at least 1 previous admission the patient had similar mental status alterations and a urinary tract infection was found to been contributory. For that reason, we have ordered a urinalysis. -The patient has been demonstrating a shuffling gait, and on testing today a substantial degree of cogwheel rigidity was noted. The patient also reports a feeling "jumpy" and "restless." He had been receiving benztropine 0.5 mg twice a day, and while this may have been helpful, it seems not to have been fully effective. We will try trihexyphenidyl 2 mg stat and then 2 mg twice a day, and titrate further as indicated. 10/23 - Titrate clozapine to 25mg qAM and 200mg qHS - continue to hold ziprasidone at this time - Pt continues to reports stiffness and difficulty with ambulation, given that we are continuing to titrate clozapine we will order an additional prn dose of trihexyphenidyl 2mg with consideration to schedule the dose if necessary - UA results reviewed - no indication for current UTI - Will need to continue to discuss appropriate discharge timeline - patient remains suicidal 10/24 - Given concern for confusion, EPS and parkinsonism, morning dose of cl ozapine was held - Will reduce patient's dose to 150mg qHS and plan for a slower titration. This dosage continues to be subtherapeutic, and patient will require advancement of dose as tolerated - Will discontinue trihexyphenidyl due to concern for urinary retention - will resume benztropine 1mg BID for ongoing stiffness and EPS - Will plan to reduce dose of temazepam to 7.5mg with a one-time repeat if necessary - Pt placed on MNPR due to ambulatory concerns, somewhat disruptive behavior related to his physical complaints, and need for close observation at this time 10/27 --resume low dose Restoril as seems more disorganized with poorer quality sleep, reviewed can impact risk of falls, ?anticholinergic side effects 10/28 --will decrease Cogentin given potential that anticholinergic side effects are worsening his cognition. 10/29 - Will discontinue clozapine at this time - allow patient to clear for a period of time and then consider resuming an antipsychotic medication as he continues to experience auditory hallucinations - Will continue Cogentin, but switch to prn - unlikely to require regularly until/unless an antipsychotic medication is resumed. Agree with concern the medication may increase risk of confusion/falls - Resumed MNPR due to behaviors associated with confusion that are not compatible with and would be disruptive to a roommate at this time 10/30 - holding off starting a different antipsychotic at this time to give time to clear from potential worsening of presentation from clozapine trial, maintained MNPR for now 10/31 plan unchanged for now, consider options to treat psychotic processes that appear ongoing so far while holding for now as potential that medication reaction adding to presentation 11/01 - Continue to hold clozapine - consider alternative antipsychotic agents to target auditory hallucinations which are ongoing - Will allow for a 7.5mg repeat dose of temazepam, as patient continues to report poor sleep. While temazepam may contribute to confusion, poor quality of sleep may be contributing as well. Pt should not receive an additional dose if he is appearing confused or if gait is unstable. - Pt continues to report suicide "it's still an option" if AH continue - he is admitted presently to feeling as though he would seek help before acting on these thoughts - Will need to scheduled discharge planning meeting with the [facility] once patient is appropriate to participate 11/02 - Continue hold on clozapine - will plan to discuss treatment alternatives during treatment team tomorrow morning in order to provide additional time to clear after clozapine initiation. Pt reports no improvement in symptoms since admission and is agreeable with trial of medications to target his auditory hallucinations - he is specifically requesting "Valium three times a day." - Reviewed history of past antipsychotic medication trials: Zyprexa ("is a joke", restlessness, ineffective); Geodon (ineffective); Abilify (ineffective) - Pt reports desire to return to the [facility] after discharge, but continues to report SI and is not cleared for discharge at this time 11/03 - 11/04 -Patient continues to refuse all antipsychotic medication. Advised him that if he is willing for a trial of any medication in his group, to let us know, and he expressed understanding. For now continue temazepam and benztropine as needed for muscle tension. -Continue to attend participate in groups, work on healthy coping skills and discharge safety plan. 11/05 - Pt was cooperative with conversation regarding recommendation for an antipsychotic trial - patient agreeable with perphenazine. Will order 4mg daily to initiated with titration as tolerated. - Pt continues to report muscle stiffness and continues to request benztropine - given risk of true EPS with antipsychotic retrial, will continue to have this medication available as needed - Continues to report auditory hallucinations contributing to ongoing suicidality; reports he would be unsafe to leave the hospital at this time 11/06 - continue Trilafon trial, hold additional titration as hx of significant EPS when titrated too quickly. 11/07 - Titrate Trilafon to 4 mg BID (2nd dose with evening meal) 11/08 - Maintain current dosage of Trilafon - can continue cautious titration as tolerated - Pt encouraged to focus on safety planning efforts, as he is reporting some improvement in SI and voicing ultimate desire to return to the CRR 11/09 -file for 306 hearing, to initiate another 305 involuntary commitment, as patient's current commitment will 11/21/2019. This will need to be converted to an IOC at discharge. 11/10 - Discussed titration of Trilafon to 6mg BID starting with this evening's dose - reviewed potential side effects and encouraged patient to report any con cerns to staff - Ongoing discussion regarding safety plan for anticipated return to the [facility] - 306 conversion hearing to initiate another 305 is scheduled for 11/17/201911/11 - Continue Trilafon at 6mg BID - denies side effects related to the medication at this time - Pt denied SI yesterday - none yet this morning. He admits to feeling somewhat more positive, but states he is not yet ready for discharge - 306 hearing 11/17/2019 to extend 305 commitment 11/12 - Continue Trilafon 6mg BID - continue further titration as indicated/tolerated, watching for EPS - Pt continues to deny SI, ongoing attempts to engage patient in conversations regarding safety planning - Hearing for extension of 305 commitment - Pt has been offered daily to be escorted outside by staff, patient has consistently declined due to temperature 11/13 Continues to deny suicidal ideation Continue medication regimen unchanged 11/14 Condition remains stable. Continue medication regimen and treatment plan as prescribed. 11/15 - Pt remains stable on 12mg total of perphenazine daily - at patient's request, and to encourage long-term compliance, will adjust dosing to 4mg qAM and 6mg qHS due to ongoing reports of daytime fatigue - Pt reminded of 305 hearing tomorrow morning, states he is planning to attend but not contest - Pt remains agreeable with anticipated discharge for 11/18 - arrangements are being made with the [facility]R for transportation and accommodations for his outpatient appointments via telepsych - Maintain MNPR at this time in order to protect sleep and stability of symptoms. Pt is also at high-risk of complications if he were exposed to COVID- 19 and private room will limit close interactions - Pt continues to decline daily offers to have staff accompany him outside, will continue to offer daily 11/16 -Continue perphenazine and temazepam. -305 granted today, will convert to an IOC at discharge. 11/17 - Continue perphenazine and temazepam; continues to deny SI - Pt to be discharged on a 305 outpatient commitment - tomorrow's discharge coordinated with the [facility] - Pt aware that 305 findings will likely be mailed to him at the [facility] - Neurology consultation placed, as requested by neurology - when coordinating patient's aftercare it was offered that patient be seen during this admission in order to determine outpatient needs (2) Auditory hallucinations: 10/16 -Patient's chief complaint has to do with persistent persecutory auditory hallucinations. He describes the voices as being "electronically generated," and although he tells us that he does not know the source of the electronically generated voices, he says that he has no doubt that they are real and are coming from some entity that is trying to torture and/or kill him. His explanation for the suicide attempt was not that he has been depressed, but, instead, because he feels tortured by the voices and finds that he can no longer tolerate hearing them and no longer tolerate feeling terrorized by them. Patient also explains that he would rather at his own hand than risk being murdered by unknown forces and unknown means. -The patient's condition has been largely treatment resistant to psychiatric medications. With each antipsychotic medication mentioned, the patient's response has been to assert that the specific medicine mentioned has been tried and was not effective, or has been tried and caused worsening symptoms. Today, he asserts that he has taken clozapine in the past, but that it was not effective. He has unable to identify the dose, and does not recall when or where it was prescribed, but says that he believes that he took it for "a month or 2" before it was discontinued as ineffective. Other options for the patient might be a trial of perphenazine or loxapine. For now, the patient has indicated that he would prefer to remain on Geodon 80 mg twice a day. 3/4 - Auditory hallucinations are ongoing. Pt does report that the voices are quieter, but when asked for how long he states "just now, since you asked" - Unclear how reliable patient's reports are on this topic, though it is anticipated ongoing titration of clozapine may be helpful for this 3/5 - Pt more focused on "head buzzing" today, does not mention auditory hallucinations today though this does not mean he is not experiencing them 10/22 -Today, the patient reports that he is troubled both by "a buzzing sound" in both ears, as well as by voices". He tells us that he believes that the voices are being generated by a computer and that the threats that are made through the's "voices" are genuine and represent a mortal danger. He insists that he is being told that he is going to be murdered. -I tried to talk to the patient about the fact that his records, going back many years, speak to the presence of similar perceptual disturbances and similar believes. The patient responds by saying, "they have come close to killing me a number of times. 1 of these days they are going to do it!" -We are discontinuing Geodon today and will be increasing his dose of clozapine, beginning tonight. The new dose of clozapine will be 150 mg at bedtime and 25 mg in the morning. We expect that we will need to continue to titrate. We will also reintroduce clozapine, albeit at a lower dose, should his psychiatric condition worsen. Our concern at this point is excess sedation associated with our current cross titration of Geodon and clozapine. 10/23 - Pt denies significant change from above at this time 10/24 - Ongoing, unchanged with current dose of clozapine - pt would likely require further titration of clozapine to therapeutic range; however, this titration must be balanced with concerns the medication may be causing EPS and parkinsonism - Will reduce dose of clozapine to 150mg qHS and suggest reduced pace of titration 10/28 --no change on current dose of Clozaril, will ask Dr. Dorsey to provide second opinion re: use and dose of Clozaril given course in past week. 10/29 - No change in AH at this time 11/03 -Patient continues to refuse all antipsychotic medication. Advised that if he is willing to trial any medication in this group, to let us know, and he agreed. He often refuses medications for a time before choosing 1. 11/05 - Pt now agreeable with a trial of perphenazine to target auditory hallucinations - will start with 4mg daily and titrate as tolerated 11/08 - See treatment plan for "Schizophrenia" above (3) Benzodiazepine abuse: 10/14 - Historical diagnosis of benzodiazepine abuse - Will not continue home dose of alprazolam - but will offer temazepam 15mg qHS for sleep as it has been effective - Will need to consider the safety of this medication regimen, and may suggest discontinuation of benzodiazepines at discharge given his history - Benzodiazepines are not recommended for the patient if he would be discharged to an unsupervised setting or expected to manage his own medication administration 10/16 -The patient is history of benzodiazepine abuse is noted. That history not withstanding, at seems apparent that the only hypnotic medication that has been consistently effective for this patient has been temazepam, and there is no evidence that he has been misusing this medication in the community prior to admission. -The material risks of temazepam, including but not limited to, risk of a physical habituation, risk of complicated and possibly fatal withdrawal symptoms, risk of accidents, falls and other injuries, as well as risk of worsening depression and clouded consciousness/cognitive impairment were reviewed with the patient, and he responded by saying, "I know. But it is the only thing that works. I really need to sleep, and without it the voices keep me awake all night." 10/22 -The patient's history of benzodiazepine continues to be noted. However, the patient's current condition, we continue to feel that the use of temazepam for sleep is medically necessary and appropriate. 10/25--d/c temazepam as seems to be contributing to AMS? 11/03--temazepam 7.5 mg at bedtime was resumed 10/28/2019, and patient has continued on that dose, which appears to be helping for sleep. We will need to explore options to ensure safety with this medication at discharge; patient will be returning to the [facility], but in the past has refused to allow staff to hold his medication bottles, which would not be advisable given his substance abuse history and overdose risk. 11/05 - We have been able to confirm with the [facility] that they will hold patient's prescribed medications and distribute accordingly. This plan would reduce risk of patient returning to behaviors of benzodiazepine abuse. (4) Tylenol overdose: 10/14 - Continue management per medical team - Recheck LFTs tomorrow morning. Today, AST 70, ALT 631. 10/15 -Continue to trend down. AST 54, ALT 538. We will reorder LFTs for Saturday. Avoid hepatotoxic agents. 10/16 -Patient reports that he remains suicidal and confirms that his overdose of Tylenol was taken with the intent of causing his own . 11/08 - Focus of this particular problems has shifted toward management of schizophrenia and targeting auditory hallucinations which were reported to have been a trigger for his overdose - Consider this problem itself resolved, though we are continuing to work on safety planning efforts. (5) Hypertension: 10/14 - Home medication includes clonidine 0.1mg qHS - Will continue to monitor blood pressure with daily vitals, consider resuming 10/20 - We have continued daily blood pressures, some of which have been mildly elevated but not consistently - Given increased fatigue and concern for falls related to intermittent unsteadiness with ambulation, will continue to hold clonidine at this time 10/22 -Today, the patient's blood pressure is within normal limits. 11/08 - No active changes to this issue - blood pressure continues to be within reasonable limits despite holding home dose of clonidine - Pt can follow-up with his PCP for ongoing monitoring and management 11/13 - Blood pressure normotensive Risk Factors Assessment Male: Yes : Yes Do You Have Access To A Gun?: No Health Problems: No Mental Health Diagnoses: Yes Substance Use Disorders: Yes Previous Attempt: Yes Family History of Suicide: Yes (cousin) Previous Psychiatric Hospitalization: Yes Hopelessness: Yes Protective Factors Assessment Scientologist Beliefs: No : No Responsible for Young Children: No Employed: No Stable Relationships: No Supportive Family: No Good Rapport with Provider: No Interval History Identifying Information SCOTT ROBERTO is a 74-year-old M who currently lives in [place] at the [facility]. Pt has a history of schizophrenia and this is his fourth psychiatric admission to our unit in roughly the last 7 months, with one admission to [facility] in that time as well. Pt was admitted on 10/14/19 12:33 on a 201 voluntary commitment after being treated on the medical floor since 10/09/2019 after an intentional Tylenol overdose. 306 conversion hearing was held on 10/16/2019 and his 305 IOC was converted to an inpatient commitment. Chief Complaint "Oh, things are fine." Review of Systems Notes Constitutional: reports improvement in daytime fatigue Cardiovascular: denied Respiratory: denied Gastrointestinal: denied Neurological: denied Psychiatric: denies symptoms other than stated above Total of at least 10 systems reviewed, pertinent positives as above and in HPI. Sleep Information Total Hours of Sleep: 8.75 Sleep Comments: pt on q-15 minute checks Meal Information Percent Meal Consumed - Breakfast: 100 Percent Meal Consumed - Lunch: 100 Percent Meal Consumed - Dinner: 100 Subjective Subjective Patient was seen & assessed and interval progress reviewed with treatment team. Staff report the patient continues to participate in group and recreational programming. He rated his mood an 8/10 and "relaxed" last evening. Patient continues to deny suicidal ideation. Coordination with the [facility] has been made regarding anticipated discharge tomorrow afternoon. Patient was seen today to assess progress since admission. He states that he is feeling "fine." When asked about his hearing, patient states "it went about how I expected it to." Patient did ask appropriate questions related to how he would receive the findings of his 305 hearing. Patient was updated with confirmation he would likely receive this information in the mail after his discharge. Patient states that he is hopeful this documentation will include the testimony of the psychiatrist, as "I need it for proof of why I need to be in the [facility]." Patient went on to explain that he understands "I am sick, and I need to be there." While patient admits that the CRR is not necessarily his ideal long-term living situation, he does state that his plan is still to return later upon discharge. Patient does report "this is going to be a very difficult time. With the virus I am not going to be able to do much there." Some time was spent discussing safety planning with the patient, including activities that he can complete at the [facility]. Patient was reminded that his casework specialist and [facility] staff are available to help with any safety concerns should he experience depression or recurrence of suicidality. Patient verbalized understanding of this and states he is willi ng to reach out to them as needed for assistance. Patient continues to verbalize a willingness to continue his psychiatric medications after discharge, even requesting that we ensure his pharmacy has the medication available and that the prescription is ready by the time he leaves tomorrow. Patient continues to deny suicidality, and remains agreeable with discharge tomorrow. Physical Exam Psychiatric Orientation: alert and cooperative Apperance: appropriately dressed, appropriately groomed and appeared stated age Eye Contact: good eye contact Motor Behavior: steady gait and station and no abnormal motor movements Speech: normal rate/rhythm/volume of speech (Brief responses to questions, but more spontaneous in conversation) Affect: + blunted affect (demonstrating a broader range of affect, but remains somewhat constricted) Mood: no depressed mood ("I'm fine") Thought Process: goal directed thought process and + concrete thought process Thought Content: + hopelessness (situationally, related to restrictions with COVID-19); no delusions (no overt delusional thought content verbalized) Suicidal Thoughts: denies suicidal thoughts and denies suicidal intent Homicidal Thoughts: denies homicidal thoughts Hallucinations: + auditory hallucinations (ongoing, but reportedly improved); no visual hallucinations Cognition: attention grossly intact and language grossly intact Insight: + limited insight (Overall) Judgement: + limited judgement (overall) Vital Signs (Past 24 Hours) Last Vital Signs Temp 36.7 C 11/18/19 06:33 Pulse 64 11/18/19 06:33 Resp 18 11/18/19 06:33 BP 134/76 11/18/19 06:33 Pulse Ox 96 10/22/19 23:30 Results & Data ([facility]) Current Inpatient Medications Current Inpatient Medications: Current Inpatient Medications Acetaminophen (Tylenol) 650 mg PO Q4H PRN PRN Reason: Headache or Minor Fever Stop: 12/14/19 09:24 Al Hydrox/Mg Hydrox/Simethicone (Maalox) 30 ml PO Q4H PRN PRN Reason: GI Upset Stop: 12/14/19 09:24 Benztropine Mesylate (Cogentin) 0.5 mg PO DAILY PRN PRN Reason: EPS/restlessness Stop: 11/29/19 11:31 Last Admin: 11/10/19 16:21 Dose: 0.5 mg Documented by: Bismuth Subsalicylate (Kaopectate) 15 ml PO PRN PRN PRN Reason: Loose Stool Stop: 12/14/19 09:24 Docusate Sodium (Colace) 100 mg PO BID MAG Stop: 12/14/19 09:59 Last Admin: 11/18/19 08:40 Dose: 100 mg Documented by: Hydroxyzine HCl (Vistaril) 50 mg PO HSZ PRN PRN Reason: Insomnia Stop: 12/14/19 09:24 Hydroxyzine HCl (Vistaril) 25 mg PO Q4H PRN PRN Reason: Anxiety Stop: 12/14/19 09:24 Magnesium Hydroxide (Milk Of Magnesia) 30 ml PO DAILY PRN PRN Reason: Constipation Stop: 12/14/19 09:24 Magnesium Oxide (Mag-Ox) 400 mg PO QAM [facility] Stop: 12/14/19 09:59 Last Admin: 11/18/19 08:40 Dose: 400 mg Documented by: Perphenazine (Trilafon) 4 mg PO QAM [facility] Stop: 12/17/19 08:59 Last Admin: 11/18/19 08:40 Dose: 4 mg Documented by: Perphenazine (Trilafon) 8 mg PO 1700 [facility] Stop: 12/16/19 16:59 Last Admin: 11/17/19 17:01 Dose: 8 mg Documented by: Polyethylene Glycol (Miralax Powder Packet) 17 gm PO DAILY PRN PRN Reason: Constipation Stop: 12/14/19 09:16 Potassium Chloride (Klor-Con M20) 20 meq PO QAM [facility] Stop: 12/14/19 09:59 Last Admin: 11/18/19 08:40 Dose: 20 meq Documented by: Senna/Docusate Sodium (Senokot S) 1 tab PO QAM [facility] Stop: 12/14/19 09:59 Last Admin: 11/18/19 08:40 Dose: 1 tab Documented by: Sodium Chloride ([place] Nasal) 1 - 2 sprays NA PRN PRN PRN Reason: Nasal Dryness/Congestion Stop: 12/14/19 09:24 Temazepam (Restoril) 7.5 mg PO HSZ [facility] Stop: 11/27/19 21:59 Last Admin: 11/17/19 20:14 Dose: 7.5 mg Documented by: Mental Health & Subst Abuse Tx Psychiatrist Name of Psychiatrist: [facility] - Dr. Alves Psychiatrist's Date of Appointment with Psychiatrist: 11/23/19 Time of Appointment with Psychiatrist: 4:40 pm Psychiatric Appointment Comment: They will call you at the [facility] number and you can call right back if needed Therapist Name of Therapist: . Cold Rolling Machine Setter Name of Cold Rolling Machine Setter: Shruti Mcbride Phone Number for Cold Rolling Machine Setter: [phone] Date of Appointment with Cold Rolling Machine Setter: 11/21/19 Case Management Appointment Comment: He will have regular phone calls with you Post Discharge Appointments Primary Care Physician Name Of Family Doctor: [facility] - Dr. Jeff Lopez Primary Care Date of Appointment with PCP: 12/02/19 Time of Appointment with PCP: 12:50 p.m. Provider Appointment Comment: [address], [address], [place] [address] Neurologist Name of Neurologist: [facility] [place] - Dr. Caal Neurologist's Date of Appointment with Neurologist: 02/02/20 Time of Appointment with Neurologist: 10:00 a.m. Neurology Appointment Comment: [address] [facility] [address], [place] [address] Contact Information Discharge Discharge Address: [address] [place] [address], [place] [address] Contact Information Comment: JERRELL BRYAN (1) Schizophrenia Schizophrenia type: paranoid schizophrenia Qualified Code(s): F20.0 - P aranoid schizophrenia (2) Hypertension Hypertension type: essential hypertension Qualified Code(s): I10 - Essential (primary) hypertension
--- NOTE | 2019-11-18 17:53 | Neurology Consultation ---
Date of Consultation November 18, 2019 Assessment & Plan (1) Memory changes: Trey Santiago is a 74 yo man w/ PMH of HTN, h/o tobacco abuse, h/o marijuana abuse, h/o benzo abuse and schizophrenia whom neurology was consulted on for evaluation of possible dementia. # Memory changes: He is worried about possible dementia. He certainly has risk factors for dementia (HTN, tobacco abuse, benzo abuse). Will complete workup as below to determine if any treatable causes of dementia and go forward from there depending on results. - B12 as he is a vegetarian - MRI brain with and without contrast to r/o any stroke or other underlying lesion that could be contributing to memory changes - referral for formal neuropsych testing to determine if there is underlying cognitive dysfunction that is primary brain or confounded by underlying mental health diagnosis - would recommend avoiding benzos in the future if possible as this can worsen/potentially contribute to dementia Thank you for this interesting consult. Plan of care discussed with primary team. Please call or text with questions. We can see him in the outpatient clinic after he is completed his formal neuropsych testing, especially if there are abnormalities found on the MRI or the neuropsych testing that are concerning. Encouraged him to open a portal account so he can have a telehealth visit given [employer], as well as he does not like to go out if not absolutely necessary. (2) Schizophrenia: History of Present Illness Attending Physician: Alison Campos MD History of Present Illness Trey Santiago is a 74 yo man w/ PMH of HTN, h/o tobacco abuse, h/o marijuana abuse, h/o benzo abuse and schizophrenia whom neurology was consulted on for evaluation of possible dementia. Trey reports that for the past 1 year he has been having symptoms that he has been concerned about are possible early dementia, discussed in detail below. No family available for collateral information at this time. Dementia screening questions: Concerning changes for patient and/or family: He reports that he will forget conversations and names of people he does not necessarily know well or see frequently. Denies forgetting names of people or family are very). Does report that sometimes he will forget his keys at home and can sometimes get lost when driving. Able to complete ADLs: Reports that he feeds, dresses and bathes himself. Reports that he pays his own bills. Reports that he is still driving. Sleep difficulties: Long history of insomnia for which she takes medications for. Mood: Reports that his mood is currently okay Hallucinations/vivid dreams: Has a long history of schizophrenia with full visual and auditory hallucinations. Endorses having background "buzzing" sound that sometimes makes it difficult for him to hear what other people are saying. He also reports that this buzzing sound can sometimes be distracting so he stopped paying attention to the people around him. Any symptoms or history of prior stroke(s): Denies any current or prior history of stroke but is worried that he may have had one. Nausea/vomiting or change in appetite: Denies Orthostasis present: Denies Parkinsonism present: Has a mild fine tremor on extension. He feels like he has been moving slower than usual. Denies any falls outside of one fall when staff believe he was overmedicated. Family history of dementia or movement disorders: Denies any family history of dementia or movement disorder Pertinent lab work: Labs at admission were notable for WBC 6.92, hemoglobin 13.2 with MCV 97.8, platelets 378, TSH within normal. Previous imaging: He had a CT of the head in September 2019 that showed mild generalized atrophy and mild to moderate small vessel ischemic disease. Previous neuropsych testing: None Current medications of note: He is currently on Vistaril prn, perphenazine, and temazepam. He has been on multiple antipsychotic medications over the years, as well as benzodiazepines for anxiety. Social history: Reports that he smoked 1 pack/day for 50 years, quit in 2017. Denies any alcohol. Reports daily marijuana usage for many years to help with sleep but quit approximately 2 years ago. Denies any other drugs or illicit substance use. Allergies Allergy/AdvReac Type Severity Reaction Status Date / Time No Known Allergies Allergy Verified 10/08/19 23:48 Home Medications Home Medications Medication Instructions Recorded Confirmed Type ziprasidone HCl 80 mg PO BIDM 07/07/19 10/08/19 History benztropine 0.5 mg PO DAILY PRN 10/08/19 10/08/19 History docusate sodium 100 mg PO BID 10/08/19 10/08/19 History alprazolam [Xanax] 10/14/19 History clonidine HCl 10/14/19 History melatonin mg 10/14/19 History mirtazapine [Remeron] mg 10/14/19 History Patient History Medical History Benzodiazepine abuse Closed head injury Fall Hypertension Hypokalemia Leukocytosis (08/14/13) Rhabdomyolysis (07/21/13) Scalp laceration Schizophrenia (Chronic) Tobacco use disorder Surgical History No pertinent past surgical history Family History Other No pertinent family history Social History Preferred Language: Latvian Communication Ability: Effective Commissioned Police Officer Required: No Beliefs That Will Affect Care: None Current Living Situation: Alone Feels Safe at Home: Yes Smoking Status: Current some day smoker Tobacco Type: cigarettes ; Hx Alcohol Use: No Hx Substance Use: No Review of Systems Review of Systems: 14 point review of systems completed and negative except as in HPI. Physical Exam Physical Exam: General Exam: GEN: NAD, sitting in chair. HEENT: No conjunctival injection, no rhinorrhea. CV: RRR, no peripheral edema PULM: Nonlabored respirations on room air. Neuro Exam: MS: Awake and Alert. Oriented to person, place, and date. Speech fluent and appropriate without dysarthria or paraphasic errors. Language intact including naming, comprehension, repetition. Cognition and memory grossly intact. Attention intact. No neglect. CN: Visual rhoades full. No extinction to double simultaneous stimuli. Unable to visualize fundi on fundoscopic exam. PERRLA OU. EOMI without nystagmus, +saccadic intrusions. Facial sensation intact to LT. Facial muscles full and symmetric. Hearing intact to conversation. Uvula midline with symmetric palatal elevation. Shoulder shrug normal. Tongue midline. MOTOR: Normal bulk and tone. No pronator drift. BUE strength 5/5 at deltoids, biceps, triceps, wrist flexors and extensors, and hand grasp bilaterally. BLE strength 5/5 at iliopsoas, hamstrings, quadriceps, tibialis anterior, and gastrocnemius bilaterally. Mild fine tremor on extension, none noted at rest. Slightly irregular fingertaps bilaterally. Normal heel taps. REFLEXES: 1+ at biceps, triceps, brachioradialis, 1+ patella and trace Achilles bilaterally. Flexor plantar responses bilaterally. SENSORY: Intact to LT without extinction to double simultaneous stimuli. Vibration and pinprick intact throughout. COORDINATION: No dysmetria or ataxia on [id number] and [id number] bilaterally. Normal Harriett bilaterally. GAIT: Normal gait and arm swing. Normal Romberg. Results & Data Vital Signs (Past 12 Hours) Vital Signs Temp Pulse Resp BP 11/18/19 06:33 36.7 C 64 18 134/76 PG Care Time/CCT Total # of Minutes Spent Total Time Spent with Patient: Total time spent is greater than 50% in coordination of care (as documented) at patient's floor/unit and/or counseling patient: Coding Level of Care Code 24936 Initial Inpt Care Lvl 3 Diagnoses Memory changes R41.3 Schizophrenia F20.0 Schizophrenia type: paranoid schizophrenia (1) Schizophrenia Schizophrenia type: paranoid schizophrenia Qualified Code(s): F20.0 - Paranoid schizophrenia
[2019-11-18] MEDS: TEMAZEPAM 7.5 MG CAPSULE PO SCH (20:23)
[2019-11-19] MEDS: DOCUSATE SODIUM/SENNA 50/8.6MG TAB PO SCH (08:00)
[2019-11-19] MEDS: POTASSIUM CHLORIDE 20 MEQ TABCR PO SCH (08:00)
[2019-11-19] MEDS: DOCUSATE SODIUM 100 MG CAP PO SCH (08:00)
[2019-11-19] MEDS: PERPHENAZINE 2 MG TABLET PO SCH (08:00)
[2019-11-19] MEDS: MAGNESIUM OXIDE 400 MG TAB PO SCH (08:00)
--- NOTE | 2019-11-19 09:17 | Discharge Summary ---
Date of Service November 19, 2019 History of Present Illness Trey Santiago (Chuck) is a 74-year-old male admitted voluntarily for inpatient psychiatric treatment on 10/14/2019 after a stay on the medical floor for an intentional Tylenol overdose. Pt was admitted medically on 10/09/2019 after he was found to be passed out on the floor of his halfway and admitted to suicide attempt by Tylenol overdose. Pt admits to consuming #100 pills of Tylenol in an attempt to end his life, claiming the "head buzzing" and auditory hallucinations were too overwhelming. He has been admitted for inpatient psychiatric treatment 5 times in roughly the last 7 months, at least 3 of these admission related to suicidality. Pt's acetaminophen level on presentation to the ED was 282 (nml range 10-30). AST and ALT on presentation were 45 (H) and 60 respectively. They continued to increase to a respective maximum of 748 (H) and 1380 (H) during his medical admission. His creatinine kinase reached a maximum of 888 (H) during his medical treatment. LFTs were checked routinely, and consistent reduction in levels was observed by the time of medical clearance and subsequent psychiatric admission. Collateral information was obtained from the patient during psychiatric consultation on the medical floor. Pt had reported: Patient was cooperative with psychiatric evaluation. He provided verbal consent to allow Shereen Muhammad PA-C to observe today's encounter. Patient states that the reason for his suicide attempt was "I cannot get rid of that buzzing sound. It is so annoying, I could not do anything. I had just had enough." Patient admits that he took Tylenol overdose with the intent to end his life, as he could no longer tolerate the buzzing noises. Patient does admit to ongoing auditory hallucinations, which he admits are frustrating as well. Patient states that he had been having intermittent thoughts to overdose on Tylenol for several weeks, stating he went to the store to purchase the Tylenol with the intent to use it to end his life. Patient states he is unsure if the medication was extra strength or standard dose, but states he took "the whole bottle of 100 pills." Surprisingly, patient states he is in good spirits today, and states "I feel good." Patient denies any significant change in his mood, stating "it feels pretty normal." He does admit that he is frustrated as he has not slept in 4 days, continues to hear a "buzzing" sound in his ear, and has been dealing with auditory hallucinations telling him to commit suicide by overdosing. He states that he is not presently hearing the voices, but does admit that he feels his current medication regimen is not effective at calming them consistently. Patient was asked his thoughts regarding his suicide attempt, attempting to gauge if patient was remorseful for attempting to end his life or regretful that the attempt was not successful. Patient's only comments are "well, I know Tylenol is not the way to go. It takes 3 or 4 days to kill you. I could not buy heroin or I would have done that. But that can get you into a lot of trouble." Patient does admit to ongoing suicidal ideation. He was informed that inpatient psychiatric treatment would be recommended once he is medically cleared, he did not argue with this recommendation during time of this evaluation. Patient denied other needs or concerns from our service at this time, and was informed we will continue to round on him during his medical hospitalization. Pt participated in psychiatric assessment today as well. He provides verbal consent to allow Shereen Muhammad PA-C to observe today's encounter. Patient informs this provider "I want to ." He states that he is continued to have these thoughts throughout his medical hospitalization. Patient at this time is actually requesting state hospitalization, stating "can I please go to [facility]?" When asked why patient is making this request, he initially states "because I have been there before." Patient was reminded that generally our first goal of treatment is to safely return in individual to the outpatient setting. He then interjects by stating "I want to , but I do not want to kill myself. I need somewhere safe. [place] is safe." Patient continues to state that his Tylenol overdose was an attempt to end his life. He states "the noise and the voices were so loud. I needed it to stop." Patient states that he has been hearing "buzzing" in his head for "decades." He does not believe that it is correlated to any specific injuries, medication adjustments, or other medical concerns. Patient, at this time, is verbalizing depressed mood which is not usual for him. While he continues to verbalize suicidal ideation, he does deny temptations to harm himself here in the inpatient psychiatric setting. He admits to ongoing auditory hallucinations, stating that the voices are telling him "they are going to kill me." Patient was agreeable with resuming medications from his medical hospitalization at this time. Patient denies other needs or concerns at this time. Physical Exam Psychiatric Orientation: alert and cooperative Apperance: appropriately dressed, appropriately groomed and appeared stated age Eye Contact: good eye contact Motor Behavior: steady gait and station and no abnormal motor movements Speech: normal rate/rhythm/volume of speech Affect: euthymic affect and mood congruent with affect "Good." Thought Process: goal directed thought process and linear/logical thought process Thought Content: reality based without delusions Suicidal Thoughts: denies suicidal thoughts Homicidal Thoughts: denies homicidal thoughts Hallucinations: + auditory hallucinations; no visual hallucinations Auditory hallucinations are present at baseline. Patient states they have decreased from the time of admission, are intermittent, and he is able to manage them with distraction. Cognition: recent memory grossly intact, attention grossly intact and language grossly intact Insight: + fair insight Judgement: + fair judgement Vital Signs (Past 24 Hours) Last Vital Signs Temp 36.8 C 11/19/19 06:44 Pulse 75 11/19/19 06:45 Resp 18 11/19/19 06:44 BP 121/75 11/19/19 06:45 Pulse Ox 96 10/22/19 23:30 Principal Diagnosis Schizophrenia Suicide attempt by acetaminophen overdose Psychiatric Data Jamie was hospitalized on our unit for 36 days. He initially reported ongoing suicidality, disappointment that he had survived his overdose, and a desire to go to [facility]. He reported nearly constant auditory hallucinations of voices telling him to end his life or that they were going to kill him, and a buzzing sound that he found intolerable. He endorsed hopelessness, and a wish to . He had been resumed on ziprasidone on the medical floor, which was initially continued here. Mirtazapine was discontinued on the medical floor as the patient reported it had been ineffective for her mood. Temazepam was started for sleep, as he reported nothing else helped. Although he has a history of benzodiazepine abuse, benefits outweighed risks for short-term, supervised use of benzodiazepines due to the severity of his presenting symptoms. His LFTs were followed and continued to trend down. Clonidine was discontinued due to fatigue, fall risk, and gait unsteadiness, and as his blood pressure was within the normal range, it is not indicated at this time. He had multiple antipsychotic trials; ziprasidone was discontinued due to inefficacy, and clozapine started. Dose was titrated to 225 mg daily, but patient developed altered mental status with confusion, shuffling gait, cogwheel rigidity, and restlessness. He had trials of benztropine and trihexyphenidyl, which were not particularly effective. The clozapine titration was slowed, but altered mental status and associated symptoms continued, so it was tapered off. He was on no antipsychotic medication for a week, and then agreed to a trial of perphenazine, which was titrated slowly and well-tolerated. Dosage was waited at bedtime due to daytime sedation. He initially signed in voluntarily, and as he was on a 305 involuntary outpatient commitment, it was converted to an inpatient commitment on 10/16/2019. It was set to in early November, so another 305 involuntary commitment was granted on 11/17/2019, and again transition to an involuntary outpatient commitment at discharge. His affect improved over his last week in the hospital, he was noted to be more engaged in groups, demonstrated euthymic affect and increased interaction with others, and reported resolution of suicidal thoughts. He was able to attend and participate appropriately in groups, and complete ADLs independently. He willingly took medication and denied side effects. He continued to endorse auditory hallucinations of voices, but stated that they decreased significantly in frequency and intensity, and he felt able to manage them and utilize his coping skills. He expressed a desire to return to the [facility]. He missed an outpatient neurology appointment while in the hospital (initial eval for memory changes), and the neurologist contacted our unit to request that the consultation be performed while he was still inpatient, so he was seen by Dr. Caal 11/18/2019. She noted multiple risk factors for dementia, and recommended vitamin B12 level (1371), brain MRI to identify lesions contributing to cognitive impairment, and neuropsychological testing. She also recommended avoiding benzodiazepines. A brain MRI was scheduled to be completed after discharge. Discharge planning meetings were held with his outpatient team, and [facility] staff agreed to keep his medications secured and dispense them to him daily to reduce the risk of overdose or abuse of medications, and limit his access to large amounts of pills. Day of Discharge Assessment Staff report the patient has been attending and participating in programming, reporting improved mood and rated it an 8/10, and is consistently denying suicidal ideation. He is attending to his ADLs independently, and demonstrating good appetite, eating 100% of meals. He was seen by Dr. Cala of neurology yesterday, who recommended vitamin B12 level, outpatient neuropsych testing, and a brain MRI, which has been scheduled for today after discharge. On my assessment today, he states he is feeling good, and ready for discharge. He reports mood is much improved, and he is looking forward to returning to the [facility] and to going outside, "once it is 70 degrees out." He continues to endorse auditory hallucinations, but states they are much improved from admission, and feels able to ignore them and cope using distraction techniques. He denies suicidal thoughts, intent or plan to harm himself, and any safety concerns with discharge. Transition of Care Transition Of Care Record: was reviewed with the patient Advance Directives Advance Directives Information Provided: Yes Advance Directives: No Mental Health Advance Directive: No Advance Directives on File: No Living Will: No Power of Mill Worker: No Advance Directives Reason:: Declines as Mental Health Visit. Risk Factors Assessment Male: Yes : Yes Do You Have Access To A Gun?: No Health Problems: No Mental Health Diagnoses: Yes Substance Use Disorders: Yes Previous Attempt: Yes Family History of Suicide: Yes (cousin) Previous Psychiatric Hospitalization: Yes Hopelessness: Yes Protective Factors Assessment Anabaptist Beliefs: No : No Responsible for Young Children: No Employed: No Stable Relationships: No Supportive Family: No Good Rapport with Provider: No Tobacco Cessation at Discharge Tobacco Cessation Medication Prescribed at Discharge: Not Applicable/Non-Smoker Total Time Total Time Spent: Greater Than 30 Minutes Total Time Includes: Examination of the patient, Discharge Planning and Medication Reconciliation Discharge Data Consultations 11/18/19 12:32 Consult Neurology Routine Lab Results 10/15/19 10/18/19 10/19/19 08:48 12:52 07:52 WBC 7.47 RBC 4.20 L Hgb 13.5 L Hct 40.8 L MCV 97.1 MCH 32.1 MCHC 33.1 RDW Std Deviation 50.1 H RDW Coeff of Namita 14.3 Plt Count 311 MPV 8.5 Immature Gran % (Auto) 0.4 Neut % (Auto) 64.9 Lymph % (Auto) 19.0 Gila % (Auto) 12.6 Eos % (Auto) 2.8 Baso % (Auto) 0.3 Immature Gran # (Auto) 0.03 H Neut # (Auto) 4.85 Lymph # (Auto) 1.42 Gila # (Auto) 0.94 H Eos # (Auto) 0.21 Baso # (Auto) 0.02 Total Bilirubin 0.6 0.5 Direct Bilirubin < 0.1 < 0.1 AST 54 H 23 ALT 538 H 195 H Alkaline Phosphatase 90 73 Total Protein 7.7 6.7 Albumin 3.6 3.2 L Vitamin B12 Urine Color Urine Appearance Urine pH Ur Specific Watson Urine Protein Urine Glucose (UA) Urine Ketones Urine Blood Urine Nitrite Urine Bilirubin Urine Urobilinogen Ur Leukocyte Esterase Urine WBC (Auto) Urine RBC (Auto) U Hyaline Cast (Auto) U Epithel Cells (Auto) Urine Bacteria (Auto) 10/23/19 10/25/19 10/28/19 16:41 06:44 13:05 WBC 6.92 RBC 4.13 L Hgb 13.2 L Hct 40.4 L MCV 97.8 MCH 32.0 MCHC 32.7 RDW Std Deviation 48.8 H RDW Coeff of Namita 13.8 Plt Count 378 MPV 8.3 Immature Gran % (Auto) 0.4 Neut % (Auto) 56.6 Lymph % (Auto) 24.4 Gila % (Auto) 12.1 Eos % (Auto) 5.8 Baso % (Auto) 0.7 Immature Gran # (Auto) 0.03 H Neut # (Auto) 3.91 Lymph # (Auto) 1.69 Gila # (Auto) 0.84 H Eos # (Auto) 0.40 Baso # (Auto) 0.05 Total Bilirubin Direct Bilirubin AST ALT Alkaline Phosphatase Total Protein Albumin Vitamin B12 Urine Color Yellow Yellow Urine Appearance Turbid A Clear Urine pH 7.5 7.5 Ur Specific Watson 1.017 1.017 Urine Protein Negative Negative Urine Glucose (UA) Negative Negative Urine Ketones Negative Negative Urine Blood Negative Negative Urine Nitrite Negative Negative Urine Bilirubin Negative Negative Urine Urobilinogen Negative Negative Ur Leukocyte Esterase Trace H Negative Urine WBC (Auto) 1-5 Urine RBC (Auto) 5-10 H U Hyaline Cast (Auto) 0 U Epithel Cells (Auto) 0-5 Urine Bacteria (Auto) Negative 11/18/19 17:02 WBC RBC Hgb Hct MCV MCH MCHC RDW Std Deviation RDW Coeff of Namita Plt Count MPV Immature Gran % (Auto) Neut % (Auto) Lymph % (Auto) Gila % (Auto) Eos % (Auto) Baso % (Auto) Immature Gran # (Auto) Neut # (Auto) Lymph # (Auto) Gila # (Auto) Eos # (Auto) Baso # (Auto) Total Bilirubin Direct Bilirubin AST ALT Alkaline Phosphatase Total Protein Albumin Vitamin B12 1371 H Urine Color Urine Appearance Urine pH Ur Specific Watson Urine Protein Urine Glucose (UA) Urine Ketones Urine Blood Urine Nitrite Urine Bilirubin Urine Urobilinogen Ur Leukocyte Esterase Urine WBC (Auto) Urine RBC (Auto) U Hyaline Cast (Auto) U Epithel Cells (Auto) Urine Bacteria (Auto) Hospital Course (1) Schizophrenia: 10/14 - Continue ziprasidone as initiated on the medical floor - resume 80mg BID d osing with meals - Continue benztropine 0.5mg as needed for reports of stiffness, though it remains unclear if this is truly related to his antipsychotic medication - Mirtazapine was discontinued on the medical floor as patient feels it had been ineffective - Continue temazepam 15mg qHS for sleep - at least while hospitalized in a supervised setting, as patient has a history of benzodiazepine abuse - Will coordinate treatment with patient's outpatient psychiatric supports - Encourage participation in group and recreational programming 10/15 -Continue ziprasidone; reviewed fasting lipid profile and fasting glucose from 02/2019, all values were within normal limits. -Discussed trial of clozapine; patient states that he believes he was on this medication in the past and that it was ineffective. Continue to provide education and encourage retrial, as he has had limited response to multiple other antipsychotics, and it would also help address suicidal thoughts in addition to psychosis. -Involve outpatient case technician and coordinate with psychiatrist, Dr. Alves. 10/16 -The plan is to continue ziprasidone 80 mg twice a day. We discussed other treatment options with the patient, and he says that he is not interested in trying the various options suggested. He tends to respond in the affirmative every time he is asked whether he has ever taken a number of specific medication s, and replies in each instance "it did not help." He does say, somewhat convincingly, that he took clozapine (dose unspecified and unknown by the patient) a number of years ago for "a month or 2," and that it did not help. Re-challenging the patient with clozapine may be helpful, but at present the patient indicates that he will refuse to take it. -The patient hesitates when asked about loxapine and perphenazine, but then says that he has taken both. Loxapine is not on the hospital formulary. Today, the patient says that he is not interested in trying either of these medications "again." -Today, the patient tells us that he "really does not" want to go to the [facility] ("[place]"), although he had previously said that he might be interested in doing that. He adds that he does feel safer in a hospital, but feels that he would like to work towards being able to be discharged back to the community at this point. 10/17 --reconsented for retrial of Clozaril following review of CBC and EKG, patient aware to monitor constipation and sialorrhea and notify staff. will dose at hs and titrate by 25 mg nightly, repeat CBC in 1 week. 10/18--titrate Clozaril to 50 mg po qhs, Dr. Campos notified to consider EKG for repeat QTC on med combo as dose is increased, EPS apparently predates start of Clozaril and is not new, he is agreeable to add 0.5 mg Cogentin standing order as trial basis. 3 - Continue clozapine titration (now ordered for automatic titration of 25mg each evening), pt to receive 75mg tonight - Pt reports his condition remains unchanged at this time, but is aware that clozapine will need to be titrated to an effective dose range - At this time, patient maintains his desire would be for eventual discharge back to the [facility] - no longer requesting [place] referral - He remains suicidal and continues to report head buzzing and auditory hallucinations that are overwhelming to him 3 - Continue clozapine titration - pt to receive 100mg tonight - Will reduce ziprasidone to 60mg BID given continued titration of clozapine and reported ineffectiveness of the medication - will order an EKG for tomorrow morning, given cross-titration putting patient at increased risk of QTc prolongation. - Ongoing discussions regarding discharge planning - Pt continues to verbalize SI and feels he cannot contract for safety outside of the hospital setting 10/21 - Clozapine to be titrated to 125mg this evening; will continue ziprasidone 60mg BID for now though can consider ongoing taper - EKG ordered this morning, and reviewed QTc 445 - Reports ongoing SI - stating he is "pretty d*mn close" to wanting to - Discharge planning meeting scheduled for tomorrow 10/22 -Discharge remaining has been postponed. -Ziprasidone was held this morning, and the patient's cognition seems to have cleared. He is fully oriented and has not shown evidence of confusion. The patient, himself, notes that his thinking does seem to be more clear than it had been. -We will further titrate clozapine 250 mg at bedtime and 25 mg in the morning. -Because of persistent disturbing auditory hallucinations that the patient reports prevent him from easily inducing and maintaining sleep we will increase his dose of temazepam from 15 mg at bedtime for sleep to a dose of 22.5 mg at bedtime as needed sleep. -Although the patient's cognition seems to have improved, staff recall that during at least 1 previous admission the patient had similar mental status alterations and a urinary tract infection was found to been contributory. For that reason, we have ordered a urinalysis. -The patient has been demonstrating a shuffling gait, and on testing today a substantial degree of cogwheel rigidity was noted. The patient also reports a feeling "jumpy" and "restless." He had been receiving benztropine 0.5 mg twice a day, and while this may have been helpful, it seems not to have been fully effective. We will try trihexyphenidyl 2 mg stat and then 2 mg twice a day, and titrate further as indicated. 10/23 - Titrate clozapine to 25mg qAM and 200mg qHS - continue to hold ziprasidone at this time - Pt continues to reports stiffness and difficulty with ambulation, given that we are continuing to titrate clozapine we will order an additional prn dose of trihexyphenidyl 2mg with consideration to schedule the dose if necessary - UA results reviewed - no indication for current UTI - Will need to continue to discuss appropriate discharge timeline - patient remains suicidal 10/24 - Given concern for confusion, EPS and parkinsonism, morning dose of clozapine was held - Will reduce patient's dose to 150mg qHS and plan for a slower titration. This dosage continues to be subtherapeutic, and patient will require advancement of dose as tolerated - Will discontinue trihexyphenidyl due to concern for urinary retention - will resume benztropine 1mg BID for ongoing stiffness and EPS - Will plan to reduce dose of temazepam to 7.5mg with a one-time repeat if necessary - Pt placed on MNPR due to ambulatory concerns, somewhat disruptive behavior related to his physical complaints, and need for close observation at this time 10/27 --resume low dose Restoril as seems more disorganized with poorer quality sleep, reviewed can impact risk of falls, ?anticholinergic side effects 10/28 --will decrease Cogentin given potential that anticholinergic side effects are worsening his cognition. 10/29 - Will discontinue clozapine at this time - allow patient to clear for a period of time and then consider resuming an antipsychotic medication as he continues to experience auditory hallucinations - Will continue Cogentin, but switch to prn - unlikely to require regularly until/unless an antipsychotic medication is resumed. Agree with concern the medication may increase risk of confusion/falls - Resumed MNPR due to behaviors associated with confusion that are not compatible with and would be disruptive to a roommate at this time 10/30 - holding off starting a different antipsychotic at this time to give time to clear from potential worsening of presentation from clozapine trial, maintained MNPR for now 10/31 plan unchanged for now, consider options to treat psychotic processes that appear ongoing so far while holding for now as potential that medication reaction adding to presentation 11/01 - Continue to hold clozapine - consider alternative antipsychotic agents to target auditory hallucinations which are ongoing - Will allow for a 7.5mg repeat dose of temazepam, as patient continues to report poor sleep. While temazepam may contribute to confusion, poor quality of sleep may be contributing as well. Pt should not receive an additional dose if he is appearing confused or if gait is unstable. - Pt continues to report suicide "it's still an option" if AH continue - he is admitted presently to feeling as though he would seek help before acting on these thoughts - Will need to scheduled discharge planning meeting with the [facility] once patient is appropriate to participate 11/02 - Continue hold on clozapine - will plan to discuss treatment alternatives during treatment team tomorrow morning in order to provide additional time to clear after clozapine initiation. Pt reports no improvement in symptoms since admission and is agreeable with trial of medications to target his auditory hallucinations - he is specifically requesting "Valium three times a day." - Reviewed history of past antipsychotic medication trials: Zyprexa ("is a joke", restlessness, ineffective); Geodon (ineffective); Abilify (ineffective) - Pt reports desire to return to the [facility] after discharge, but continues to report SI and is not cleared for discharge at this time 11/03 - 11/04 -Patient continues to refuse all antipsychotic medication. Advised him that if he is willing for a trial of any medication in his group, to let us know, and he expressed understanding. For now continue temazepam and benztropine as needed for muscle tension. -Continue to attend participate in groups, work on healthy coping skills and discharge safety plan. 11/05 - Pt was cooperative with conversation regarding recommendation for an antipsychotic trial - patient agreeable with perphenazine. Will order 4mg daily to initiated with titration as tolerated. - Pt continues to report muscle stiffness and continues to request benztropine - given risk of true EPS with antipsychotic retrial, will continue to have this medication available as needed - Continues to report auditory hallucinations contributing to ongoing suicidality; reports he would be unsafe to leave the hospital at this time 11/06 - continue Trilafon trial, hold additional titration as hx of significant EPS when titrated too quickly. 11/07 - Titrate Trilafon to 4 mg BID (2nd dose with evening meal) 11/08 - Maintain current dosage of Trilafon - can continue cautious titration as tolerated - Pt encouraged to focus on safety planning efforts, as he is reporting some improvement in SI and voicing ultimate desire to return to the [facility] 11/09 -file for 306 hearing, to initiate another 305 involuntary commitment, as patient's current commitment will 11/21/2019. This will need to be converted to an IOC at discharge. 11/10 - Discussed titration of Trilafon to 6mg BID starting with this evening's dose - reviewed potential side effects and encouraged patient to report any concerns to staff - Ongoing discussion regarding safety plan for anticipated return to the [facility] - 306 conversion hearing to initiate another 305 is scheduled for 11/17/201911/11 - Continue Trilafon at 6mg BID - denies side effects related to the medication at this time - Pt denied SI yesterday - none yet this morning. He admits to feeling somewhat more positive, but states he is not yet ready for discharge - 306 hearing 11/17/2019 to extend 305 commitment 11/12 - Continue Trilafon 6mg BID - continue further titration as indicated/tolerated, watching for EPS - Pt continues to deny SI, ongoing attempts to engage patient in conversations regarding safety planning - Hearing for extension of 305 commitment - Pt has been offered daily to be escorted outside by staff, patient has consistently declined due to temperature 11/13 Continues to deny suicidal ideation Continue medication regimen unchanged 11/14 Condition remains stable. Continue medication regimen and treatment plan as prescribed. 11/15 - Pt remains stable on 12mg total of perphenazine daily - at patient's request, and to encourage long-term compliance, will adjust dosing to 4mg qAM and 6mg qHS due to ongoing reports of daytime fatigue - Pt reminded of 305 hearing tomorrow morning, states he is planning to attend but not contest - Pt remains agreeable with anticipated discharge for 11/18 - arrangements are being made with the [facility] for transportation and accommodations for his outpatient appointments via telepsych - Maintain MNPR at this time in order to protect sleep and stability of symptoms. Pt is also at high-risk of complications if he were exposed to COVID- 19 and private room will limit close interactions - Pt continues to decline daily offers to have staff accompany him outside, will continue to offer daily 11/16 -Continue perphenazine and temazepam. -305 granted today, will convert to an IOC at discharge. 11/17 - Continue perphenazine and temazepam; continues to deny SI - Pt to be discharged on a 305 outpatient commitment - tomorrow's discharge coordinated with the [facility] - Pt aware that 305 findings will likely be mailed to him at the [facility] - Neurology consultation placed, as requested by neurology - when coordinating patient's aftercare it was offered that patient be seen during this admission in order to determine outpatient needs 11/18 -Discharged on perphenazine and temazepam, follow-up with outpatient psychiatrist next week. On a 305 IOC which started 11/17/2019. Follow-up with case technician as needed. [facility] staff to secure his medications and dispensed daily as prescribed, to reduce risk of overdose. -Appreciate neurology consult and Dr. Caal's recommendations. Vitamin B12 level was normal, brain MRI is scheduled for today after discharge, and neuropsychological testing recommended. Follow-up per neurology. Agree with avoiding benzodiazepines, and recommend tapering off temazepam over the next 1 to 2 months. (2) Auditory hallucinations: 10/16 -Patient's chief complaint has to do with persistent persecutory auditory hallucinations. He describes the voices as being "electronically generated," and although he tells us that he does not know the source of the electronically generated voices, he says that he has no doubt that they are real and are coming from some entity that is trying to torture and/or kill him. His explanation for the suicide attempt was not that he has been depressed, but, instead, because he feels tortured by the voices and finds that he can no longer tolerate hearing them and no longer tolerate feeling terrorized by them. Patient also explains that he would rather at his own hand than risk being murdered by unknown forces and unknown means. -The patient's condition has been largely treatment resistant to psychiatric medications. With each antipsychotic medication mentioned, the patient's response has been to assert that the specific medicine mentioned has been tried and was not effective, or has been tried and caused worsening symptoms. Today, he asserts that he has taken clozapine in the past, but that it was not effective. He has unable to identify the dose, and does not recall when or where it was prescribed, but says that he believes that he took it for "a month or 2" before it was discontinued as ineffective. Other options for the patient might be a trial of perphenazine or loxapine. For now, the patient has indicated that he would prefer to remain on Geodon 80 mg twice a day. 3/4 - Auditory hallucinations are ongoing. Pt does report that the voices are quieter, but when asked for how long he states "just now, since you asked" - Unclear how reliable patient's reports are on this topic, though it is anticipated ongoing titration of clozapine may be helpful for this 3/5 - Pt more focused on "head buzzing" today, does not mention auditory hallucinations today though this does not mean he is not experiencing them 3/6 -Today, the patient reports that he is troubled both by "a buzzing sound" in both ears, as well as by voices". He tells us that he believes that the voices are being generated by a computer and that the threats that are made through the's "voices" are genuine and represent a mortal danger. He insists that he is being told that he is going to be murdered. -I tried to talk to the patient about the fact that his records, going back many years, speak to the presence of similar perceptual disturbances and similar believes. The patient responds by saying, "they have come close to killing me a number of times. 1 of these days they are going to do it!" -We are discontinuing Geodon today and will be increasing his dose of clozapine, beginning tonight. The new dose of clozapine will be 150 mg at bedtime and 25 mg in the morning. We expect that we will need to continue to titrate. We will also reintroduce clozapine, albeit at a lower dose, should his psychiatric condition worsen. Our concern at this point is excess sedation associated with our current cross titration of Geodon and clozapine. 10/23 - Pt denies significant change from above at this time 10/24 - Ongoing, unchanged with current dose of clozapine - pt would likely require further titration of clozapine to therapeutic range; however, this titration must be balanced with concerns the medication may be causing EPS and parkinsonism - Will reduce dose of clozapine to 150mg qHS and suggest reduced pace of titration 10/28 --no change on current dose of Clozaril, will ask Dr. Dorsey to provide second opinion re: use and dose of Clozaril given course in past week. 10/29 - No change in AH at this time 11/03 -Patient continues to refuse all antipsychotic medication. Advised that if he is willing to trial any medication in this group, to let us know, and he agreed. He often refuses medications for a time before choosing 1. 11/05 - Pt now agreeable with a trial of perphenazine to target auditory hallucinations - will start with 4mg daily and titrate as tolerated 11/08 - See treatment plan for "Schizophrenia" above (3) Benzodiazepine abuse: 10/14 - Historical diagnosis of benzodiazepine abuse - Will not continue home dose of alprazolam - but will offer temazepam 15mg qHS for sleep as it has been effective - Will need to consider the safety of this medication regimen, and may suggest discontinuation of benzodiazepines at discharge given his history - Benzodiazepines are not recommended for the patient if he would be discharged to an unsupervised setting or expected to manage his own medication administration 10/16 -The patient is history of benzodiazepine abuse is noted. That history not withstanding, at seems apparent that the only hypnotic medication that has been consistently effective for this patient has been temazepam, and there is no evidence that he has been misusing this medication in the community prior to admission. -The material risks of temazepam, including but not limited to, risk of a physical habituation, risk of complicated and possibly fatal withdrawal symptoms, risk of accidents, falls and other injuries, as well as risk of worsening depression and clouded consciousness/cognitive impairment were reviewed with the patient, and he responded by saying, "I know. But it is the only thing that works. I really need to sleep, and without it the voices keep me awake all night." 10/22 -The patient's history of benzodiazepine continues to be noted. However, the patient's current condition, we continue to feel that the use of temazepam for sleep is medically necessary and appropriate. 10/25--d/c temazepam as seems to be contributing to AMS? 11/03--temazepam 7.5 mg at bedtime was resumed 10/28/2019, and patient has continued on that dose, which appears to be helping for sleep. We will need to explore options to ensure safety with this medication at discharge; patient will be returning to the [facility], but in the past has refused to allow staff to hold his medication bottles, which would not be advisable given his substance abuse history and overdose risk. 11/05 - We have been able to confirm with the [facility] that they will hold patient's prescribed medications and distribute accordingly. This plan would reduce risk of patient returning to behaviors of benzodiazepine abuse. (4) Tylenol overdose: 10/14 - Continue management per medical team - Recheck LFTs tomorrow morning. Today, AST 70, ALT 631. 10/15 -Continue to trend down. AST 54, ALT 538. We will reorder LFTs for Saturday. Avoid hepatotoxic agents. 10/16 -Patient reports that he remains suicidal and confirms that his overdose of Tylenol was taken with the intent of causing his own . 11/08 - Focus of this particular problems has shifted toward management of schizophrenia and targeting auditory hallucinations which were reported to have been a trigger for his overdose - Consider this problem itself resolved, though we are continuing to work on safety planning efforts. (5) Hypertension: 10/14 - Home medication includes clonidine 0.1mg qHS - Will continue to monitor blood pressure with daily vitals, consider resuming 10/20 - We have continued daily blood pressures, some of which have been mildly elevated but not consistently - Given increased fatigue and concern for falls related to intermittent unsteadiness with ambulation, will continue to hold clonidine at this time 10/22 -Today, the patient's blood pressure is within normal limits. 11/08 - No active changes to this issue - blood pressure continues to be within reasonable limits despite holding home dose of clonidine - Pt can follow-up with his PCP for ongoing monitoring and management 11/13 - Blood pressure normotensive Mental Health & Subst Abuse Tx Psychiatrist Name of Psychiatrist: [facility] - Dr. Alves Psychiatrist's Date of Appointment with Psychiatrist: 11/23/19 Time of Appointment with Psychiatrist: 4:40 pm Psychiatric Appointment Comment: They will call you at the [facility] number and you can call right back if needed Therapist Name of Therapist: . Investor Relations Specialist Name of Investor Relations Specialist: Shruti Mcbride Phone Number for Investor Relations Specialist: [phone] Date of Appointment with Investor Relations Specialist: 11/21/19 Case Management Appointment Comment: He will have regular phone calls with you Post Discharge Appointments Primary Care Physician Name Of Family Doctor: [facility] - Dr. Jeff Lopez Primary Care Date of Appointment with PCP: 12/02/19 Time of Appointment with PCP: 12:50 p.m. Provider Appointment Comment: [address], [address], [place] [address] Neurologist Name of Neurologist: [facility] - Dr. Caal Neurologist's Date of Appointment with Neurologist: 02/02/20 Time of Appointment with Neurologist: 10:00 a.m. Neurology Appointment Comment: [address] [facility] [address], [place] [address] Smoking Cessation Counseling Tobacco Cessation Medication Prescribed at Discharge: Not Applicable/Non-Smoker Contact Information Discharge Discharge Address: [address] [place] [address], [place] [address] Contact Information Comment: [facility] Discharge Plan Discharge Items Patient Disposition: Home - Self-Care Reason For Visit: SCHIZOPHRENIC,SI Discharge Diagnosis: Schizophrenia Suicide attempt by Tylenol overdose Activity: Per Instructions section Non-emergency contact: Primary Care Provider, Neurologist, Psychiatrist, Therapist and Welfare Aide Call non-emergency contact if: you have any medication questions and your symptoms worsen Follow-up/Referrals: Jeff Lopez MD [Primary Care Provider] - Diet: Regular Addtl Attending Provider Instructions: SPECIAL CARE INSTRUCTIONS: 1. Follow through with your scheduled aftercare appointments. If unable to keep an appointment, please call to reschedule. 2. Take your medication only as prescribed. Medication should not be changed or stopped without the approval of your doctor. In the event of worsening symptoms or concerns about side effects, contact your doctor immediately. -[facility] staff should secure all medications and dispensed daily as prescribed. -Short-term use of benzodiazepines indicated; both psychiatry and neurology inpatient teams recommended tapering off benzodiazepines in the next 1 to 2 months. 3. Utilize new healthy coping skills, anger management skills, and stress management skills learned during your hospitalization. Journal feelings and process them with a support person. Identify stressors or situations that may result in relapse, deterioration or inappropriate behaviors and develop a plan to deal with those issues. 4. If your coping skills are ineffective and you are in crisis, contact your outpatient providers for direction. If unable to reach your providers, please call the CAN HELP LINE AT or go to the closest Emergency Room. 5. Avoid alcohol and un-prescribed drugs. 6. You have been provided with the Mental Health Advance Directives Pamphlet for your review. AFTERCARE APPOINTMENTS: * Please call your insurance company prior to your scheduled appointment to confirm your aftercare providers are covered. Take your insurance information to your appointments. WHO TO CALL AND WHEN: Medical Emergencies: For questions or emergencies related to your hospital stay, please contact the Inpatient Behavioral Health Unit at [phone]. A gauge and weigh machine adjuster is on-call 11/03 for the Behavioral Health Unit for emergencies At any time you feel your situation is an emergency, you may also call 911 immediately. Your Doctors Instructions noted above were prepared by provider Alison Campos MD. Pending Studies at Discharge: No Stand-Alone Forms: My [facility], Smoking Cessation Medications and DC Order Prescriptions: New perphenazine 8 mg tablet 8 mg PO 1700 Qty: 30 RF: 0 perphenazine 4 mg tablet 4 mg PO QAM Qty: 30 RF: 0 temazepam 7.5 mg Capsule 7.5 mg PO HSZ Qty: 10 RF: 0 Continued docusate sodium 100 mg Tablet 100 mg PO BID RF: 0 benztropine 0.5 mg Tablet 0.5 mg PO DAILY PRN (Reason: prn) RF: 0 Changed melatonin 10 mg tablet 10 mg PO HS PRN (Reason: insomnia) Qty: 0 RF: 0 Discontinued ziprasidone HCl 80 mg capsule 80 mg PO BIDM RF: 0 clonidine HCl 0.1 mg tablet RF: 0 alprazolam [Xanax] 0.5 mg tablet RF: 0 mirtazapine [Remeron] 15 mg tablet RF: 0 Discharge Orders: Discharge Order (Routine); Ordered 11/19/19 Ordered By: Alison Campos Admission Data Admit Date/Time: 10/14/19 12:33 Attending Provider: Alison Campos Admit Provider: Alison Campos Primary Care Provider: Jeff Lopez Other Providers: Rosalinda Caal Other Interventions: Discharge Summary Assessment (RN) Last Done: 11/19/19 10:54 PSY Interdisciplinary Discharge Planning Last Done: 11/19/19 09:46 DC Date/Time DO NOT enter until pt leaves facility: 11/19/19 11:55 Coding Level of Care Code 97233 D/C day mgmt > 30 min Diagnoses Schizophrenia F20.0 Schizophrenia type: paranoid schizophrenia Auditory hallucinations R44.0 Benzodiazepine abuse F13.10 Tylenol overdose T39.1X1A Hypertension I10 Hypertension type: essential hypertension
== END 2019-11-19 11:55 | disposition home or self-care (01) | DRG 885 ==
LOC: SUATTDRO 12:33 → 3S 12:33

== ENCOUNTER 2019-12-22 14:03 | Inpatient (IN) ==
--- NOTE | 2019-12-22 14:54 | Emergency Department Note ---
History of Present Illness General Chief complaint: Mental Health Evaluation Stated complaint: mental health eval Time Seen by Provider: 12/22/19 14:19 Source: patient Mode of arrival: ambulatory Limitations: no limitations History of Present Illness Provider complaint: Suicidal ideation, buzzing in head Onset (ago): day(s) Location: head Radiation: non-radiation Severity: moderate Maximum Pain Intensity: 0 Exacerbated By: + none Associated symptoms: + denies other symptoms Treatments prior to arrival: none This is a 74-year-old male with a history of schizophrenia and suicide attempt who presents due to suicidal ideation. Patient states he has chronic tinnitus but is noticed an increased buzzing in his right ear over the last several days which she states makes him more agitated and suicidal. Patient does have a recent history of a suicide attempt via overdose. Patient states he was thinking of overdosing again. Patient denies any ingestion or attempt today. Patient states he takes his medications as prescribed, denies noncompliance. Patient denies any hallucinations, paranoia, or HI. Patient has previously had inpatient mental health treatment and feels he needs this again. Patient denies any other recent illness or injury. Pt seen during a time of high acuity and national emergency pandemic while wearing PPE. Home Medications Home Medications Medication Instructions Recorded Confirmed Type benztropine 0.5 mg PO DAILY PRN 10/08/19 12/22/19 History docusate sodium 100 mg PO BID 10/08/19 12/22/19 History melatonin 10 mg PO HS PRN #0 tab 11/19/19 12/22/19 Rx perphenazine 4 mg PO QAM #30 tab 11/19/19 12/22/19 Rx perphenazine 8 mg PO 1700 #30 tab 11/19/19 12/22/19 Rx temazepam 7.5 mg PO HSZ #10 cap 11/19/19 12/22/19 Rx aspirin 81 mg tablet,delayed 81 mg PO DAILY #30 tab 11/25/19 12/22/19 Rx release Allergies Allergy/AdvReac Type Severity Reaction Status Date / Time No Known Allergies Allergy Verified 12/22/19 14:52 Past Med/Surg History Medical History Benzodiazepine abuse Closed head injury Fall Hypertension Hypokalemia Leukocytosis (08/14/13) Rhabdomyolysis (07/21/13) Scalp laceration Schizophrenia (Chronic) Tobacco use disorder Surgical History No pertinent past surgical history Family History Other No pertinent family history Social History Preferred Language: Bulgarian Communication Ability: Effective 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 and A total of 10 systems reviewed and were otherwise negative Physical Exam Vital Signs Vital Signs - 24 hr 12/22/19 14:10 12/22/19 16:00 Temperature 37.1 C Temperature Source Oral Pulse Rate 84 Pulse Rate [Left Finger] 90 Pulse Rhythm [Left Finger] Regular Pulse Strength [Left Finger] Normal Respiratory Rate 16 16 Respiratory Effort / Characteristics Non-Labored Spontaneous Respiratory Depth Normal Respiratory Pattern Regular Blood Pressure 149/89 H Blood Pressure [Left Arm] 137/82 Blood Pressure Mean 109 Blood Pressure Mean [Left Arm] 100 Blood Pressure Position [Left Arm] Sitting Pulse Oximetry 95 96 Oxygen Delivery Method Room Air Room Air Sepsis Recent Fever Within 48 Hours No Sepsis New/Unexplained Change in Mental Status No Sepsis Action Taken by Nursing No Action Required GENERAL: alert, well appearing, well nourished, no distress, non-toxic EYE EXAM: normal conjunctiva, PERRL and EOM's grossly intact OROPHARYNX: no exudate, no erythema, lips, buccal mucosa, and tongue normal and mucous membranes are moist NECK: supple, no nuchal rigidity, no adenopathy, non-tender LUNGS: Clear to auscultation. Normal chest wall mechanics, no w/r/r HEART: no murmurs, S1 normal and S2 normal ABDOMEN: abdomen soft, non-tender, normo-active bowel sounds, no masses, no rebound or guarding. BACK: Back is symmetrical on inspection and there is no deformity, no midline tenderness, no CVA tenderness. SKIN: no rashes and no bruising UPPER EXTREMITIES: upper extremities are grossly normal. FROM, nml pulses b/l. LOWER EXTREMITIES: No pitting edema. FROM, nml pulses b/l. NEURO EXAM: Normal sensorium, cranial nerves II-XII grossly intact, normal speech, no gross weakness of arms, no gross weakness of legs. Gross sensation intact. Course Course 1709: After being seen and evaluated by Agatha psychiatric casework specialist in the ED. Patient was referred upstairs for possible admission. Patient seen and evaluated by the psychiatric liaison from [facility] [address]. and will be admitted to their service. 201 signed by myself. Medical Decision Making Differential Diagnosis Differential diagnoses considered include mood disorder, infection, hypoglycemia, electrolyte abnormalities, cardiac sources, intracerebral event, toxicologic, neurologic, as well as others. Medical Records Attestation: I reviewed the patient's medical records. Home Medications Current Medication List: was personally reviewed by me Laboratory Data Attestation: I reviewed the patient's lab results. Result diagrams: 12/22/19 15:45 12/22/19 15:45 Lab Results 12/22/19 12/22/19 12/22/19 Range/Units 14:30 14:30 15:45 WBC 9.99 (4.8-10.8) K/uL RBC 5.01 (4.7-6.1) M/uL Hgb 16.0 (14.0-18.0) g/dL Hct 46.4 (42-52) % MCV 92.6 (80-100) fL MCH 31.9 (25-34) pg MCHC 34.5 (32-36) g/dL RDW Std Deviation 43.4 (36.4-46.3) fL RDW Coeff of Namita 12.9 (11.5-14.5) % Plt Count 301 (130-400) K/uL MPV 8.8 (7.4-10.4) fL Immature Gran % (Auto) 0.1 % Neut % (Auto) 73.6 % Lymph % (Auto) 15.0 % Dillon % (Auto) 8.6 % Eos % (Auto) 2.4 % Baso % (Auto) 0.3 % Immature Gran # (Auto) 0.01 (0.00-0.02) K/uL Neut # (Auto) 7.35 H (1.4-6.5) K/uL Lymph # (Auto) 1.50 (1.2-3.4) K/uL Dillon # (Auto) 0.86 H (0.11-0.59) K/uL Eos # (Auto) 0.24 (0-0.5) K/uL Baso # (Auto) 0.03 (0-0.2) K/uL Sodium (136-145) mmol/L Potassium (3.5-5.1) mmol/L Chloride (98-107) mmol/L Carbon Dioxide (21-32) mmol/L Anion Gap (3-11) BUN (7-18) mg/dl Creatinine (0.6-1.4) mg/dl Est Cr Clr Drug Dosing ml/min Est GFR ( Amer) Est GFR (Non-Af Amer) BUN/Creatinine Ratio (10-20) Glucose (70-99) mg/dl Calcium (8.5-10.1) mg/dl Total Bilirubin (0.2-1) mg/dl AST (15-37) U/L ALT (12-78) U/L Alkaline Phosphatase (45-117) U/L Total Protein (6.4-8.2) gm/dl Albumin (3.4-5.0) gm/dl Globulin (2.5-4.0) gm/dl Albumin/Globulin Ratio (0.9-2) TSH (0.300-4.500) uIu/ml Urine Color Yellow Urine Appearance Clear (Clear) Urine pH 7.5 (4.5-7.5) Ur Specific Stockwell 1.013 (1.000-1.030) Urine Protein Negative (Negative) Urine Glucose (UA) Negative (Negative) Urine Ketones Trace H (Negative) Urine Blood 1+ H (Negative) Urine Nitrite Negative (Negative) Urine Bilirubin Negative (Negative) Urine Urobilinogen Negative (Negative) Ur Leukocyte Esterase Trace H (Negative) Urine WBC (Auto) 1-5 (0-5) /hpf Urine RBC (Auto) 10-30 H (0-4) /hpf U Hyaline Cast (Auto) 1-5 (0-5) /lpf U Epithel Cells (Auto) 0-5 (0-5) /lpf Urine Bacteria (Auto) Negative (Negative) Salicylates (2.8-20) mg/dl Urine Opiates Screen Neg (Neg) Ur Methadone, Qual Neg (Neg) Acetaminophen (10-30) ug/ml Urine Barbiturates Neg (Neg) Ur Phencyclidine (PCP) Neg (Neg) U Amphetamin/Meth Scrn Neg (Neg) MDMA (Ecstasy) Screen Neg (Neg) U Benzodiazepines Scrn Neg (Neg) Ur Cocaine Metabolite Neg (Neg) U Marijuana (THC) Screen Neg (Neg) Ethyl Alcohol mg/dL (0-3) mg/dl 12/22/19 12/22/19 12/22/19 Range/Units 15:45 15:45 15:45 WBC (4.8-10.8) K/uL RBC (4.7-6.1) M/uL Hgb (14.0-18.0) g/dL Hct (42-52) % MCV (80-100) fL MCH (25-34) pg MCHC (32-36) g/dL RDW Std Deviation (36.4-46.3) fL RDW Coeff of Namita (11.5-14.5) % Plt Count (130-400) K/uL MPV (7.4-10.4) fL Immature Gran % (Auto) % Neut % (Auto) % Lymph % (Auto) % Dillon % (Auto) % Eos % (Auto) % Baso % (Auto) % Immature Gran # (Auto) (0.00-0.02) K/uL Neut # (Auto) (1.4-6.5) K/uL Lymph # (Auto) (1.2-3.4) K/uL Dillon # (Auto) (0.11-0.59) K/uL Eos # (Auto) (0-0.5) K/uL Baso # (Auto) (0-0.2) K/uL Sodium 134 L (136-145) mmol/L Potassium 3.8 (3.5-5.1) mmol/L Chloride 101 (98-107) mmol/L Carbon Dioxide 22 (21-32) mmol/L Anion Gap 11.0 (3-11) BUN 14 (7-18) mg/dl Creatinine 0.83 (0.6-1.4) mg/dl Est Cr Clr Drug Dosing 74.1 ml/min Est GFR ( Amer) 101.2 Est GFR (Non-Af Amer) 87.3 BUN/Creatinine Ratio 17.3 (10-20) Glucose 173 H (70-99) mg/dl Calcium 9.4 (8.5-10.1) mg/dl Total Bilirubin 0.7 (0.2-1) mg/dl AST 24 (15-37) U/L ALT 31 (12-78) U/L Alkaline Phosphatase 105 (45-117) U/L Total Protein 8.0 (6.4-8.2) gm/dl Albumin 4.2 (3.4-5.0) gm/dl Globulin 3.8 (2.5-4.0) gm/dl Albumin/Globulin Ratio 1.1 (0.9-2) TSH 1.970 (0.300-4.500) uIu/ml Urine Color Urine Appearance (Clear) Urine pH (4.5-7.5) Ur Specific Stockwell (1.000-1.030) Urine Protein (Negative) Urine Glucose (UA) (Negative) Urine Ketones (Negative) Urine Blood (Negative) Urine Nitrite (Negative) Urine Bilirubin (Negative) Urine Urobilinogen (Negative) Ur Leukocyte Esterase (Negative) Urine WBC (Auto) (0-5) /hpf Urine RBC (Auto) (0-4) /hpf U Hyaline Cast (Auto) (0-5) /lpf U Epithel Cells (Auto) (0-5) /lpf Urine Bacteria (Auto) (Negative) Salicylates < 1.7 L (2.8-20) mg/dl Urine Opiates Screen (Neg) Ur Methadone, Qual (Neg) Acetaminophen < 2 L (10-30) ug/ml Urine Barbiturates (Neg) Ur Phencyclidine (PCP) (Neg) U Amphetamin/Meth Scrn (Neg) MDMA (Ecstasy) Screen (Neg) U Benzodiazepines Scrn (Neg) Ur Cocaine Metabolite (Neg) U Marijuana (THC) Screen (Neg) Ethyl Alcohol mg/dL < 3.0 (0-3) mg/dl Blood Pressure Blood Pressure Findings: Normal blood pressure Blood Pressure Disposition: Referred to patients primary care provider VICK Narrative Patient here voluntarily due to concern for suicidal ideation. Patient does have a history of schizophrenia and has previously required inpatient psychiatric treatment. Patient signed 201. Labs reassuring. Hematuria was noted on UA, however no evidence of acute UTI. No evidence of acute renal failure AMOS. Patient encouraged to follow-up as an outpatient regarding this. Patient, cooperative throughout, vital signs stable, patient had no complaints of any physical concern, recent injury or illness. Impression & Plan Schizophrenia, Suicidal ideation, Hematuria Discharge Plan Visit Data *Final* Discharge Date/Time: 12/22/19 17:16 Chief Complaint: Mental Health Evaluation Stated Complaint: mental health eval ED Provider: Cristina Richardson Discharge Problem: Schizophrenia, Suicidal ideation, Hematuria Patient Disposition: Admitted As Inpatient Condition: Good Discharge Instructions Interventions: ED Discharge Assessment Last Done: 12/22/19 17:16 Discharge Problem: Schizophrenia Qualifiers: Schizophrenia type: unspecified Qualified Code(s): F20.9 - Schizophrenia, unspecified Hematuria Qualifiers: Hematuria type: other microscopic Qualified Code(s): R31.29 - Other microscopic hematuria
[2019-12-22 15:17] LABS: Appearance Urine Clear (Clear); Bacteria Urine Automated Negative (Negative); Bilirubin Urine Negative (Negative); Blood Urine 1+ (Negative); Color Urine Yellow; Epithelial Cell Urine Auto 0-5 /lpf (0-5); Glucose Urine UA Negative (Negative); Ketones Urine Trace (Negative); Leukocyte Esterase Urine Trace (Negative); Nitrite Urine Negative (Negative); Protein Urine Negative (Negative); Specific Gravity Urine 1.013 (1.000-1.030); Urobilinogen Urine Negative (Negative); pH Urine 7.5 (4.5-7.5)
[2019-12-22 15:52] LABS: Amphetamines+Metham, Urine Neg (Neg); Barbiturates, Urine Neg (Neg); Benzodiazepine, Urine Neg (Neg); Cocaine, Urine Neg (Neg); MDMA (Ecstacy), Urine Neg (Neg); Methadone, Urine Neg (Neg); Opiate, Urine Neg (Neg); Phencyclidine, Urine Neg (Neg)
[2019-12-22 15:56] LABS: Basophils # (auto) 0.03 K/uL (0-0.2); Basophils % (auto) 0.3 %; Eosinophils # (auto) 0.24 K/uL (0-0.5); Eosinophils % (auto) 2.4 %; Hematocrit (blood only) 46.4 % (42-52); Immature Granulocytes # (auto) 0.01 K/uL (0.00-0.02); Immature Granulocytes % (auto) 0.1 %; Mean Corpuscular Hemoglobin 31.9 pg (25-34); Mean Corpuscular Hgb Conc 34.5 g/dL (32-36); Mean Corpuscular Volume 92.6 fL (80-100); Mean Platelet Volume 8.8 fL (7.4-10.4); Monocytes # (auto) 0.86 K/uL (0.11-0.59); Monocytes % (auto) 8.6 %; Neutrophils # (auto) 7.35 K/uL (1.4-6.5); Neutrophils % (auto) 73.6 %; Platelet Count 301 K/uL (130-400); RDW Coefficient of Variation 12.9 % (11.5-14.5); RDW Standard Deviation 43.4 fL (36.4-46.3); Red Blood Count 5.01 M/uL (4.7-6.1); White Blood Count 9.99 K/uL (4.8-10.8)
[2019-12-22 16:29] LABS: Acetaminophen < 2 ug/ml (10-30); Salicylate < 1.7 mg/dl (2.8-20)
[2019-12-22 16:33] LABS: Est GFR (African American) 101.2; Potassium 3.8 mmol/L (3.5-5.1)
[2019-12-22 16:34] LABS: Albumin Globulin Ratio 1.1 (0.9-2); Albumin Level 4.2 gm/dl (3.4-5.0); BUN Creatinine Ratio 17.3 (10-20); Bilirubin,Total 0.7 mg/dl (0.2-1); Calcium 9.4 mg/dl (8.5-10.1); Creatinine Clr Calc Pharmacy 74.1 ml/min; Est GFR (Non-African American) 87.3; Globulin 3.8 gm/dl (2.5-4.0); Thyroid Stimulating Hormone 1.97 uIu/ml (0.300-4.500)
[2019-12-22] MEDS ORDERED: ALUMINUM/MAGNESIUM SUSP 30 ML UDC PO PRN (16:54)
[2019-12-22] MEDS ORDERED: SODIUM CHLORIDE 0.65% NA SOLN 45 ML (OCEAN) PRN (16:54)
[2019-12-22] MEDS ORDERED: BISMUTH SUBSALICYLATE PER ML OMNICELL CHARGE PO PRN (16:54)
[2019-12-22] MEDS ORDERED: MAGNESIUM HYDROXIDE SUSP 30 ML UDC PO PRN (16:54)
[2019-12-22] MEDS ORDERED: BENZTROPINE MESYLATE 0.5 MG TAB PO PRN (16:58)
[2019-12-22] MEDS: PERPHENAZINE 2 MG TABLET PO SCH (19:40)
[2019-12-22] MEDS: TEMAZEPAM 7.5 MG CAPSULE PO SCH (21:02)
[2019-12-22] MEDS: DOCUSATE SODIUM 100 MG CAP PO SCH (21:02)
[2019-12-23] MEDS: PERPHENAZINE 2 MG TABLET PO SCH ×2 (08:33→17:19)
[2019-12-23] MEDS: ASPIRIN 81 MG ECTAB PO SCH (08:33)
[2019-12-23] MEDS: DOCUSATE SODIUM 100 MG CAP PO SCH ×2 (08:33→20:53)
--- NOTE | 2019-12-23 08:47 | History & Physical ---
Date of Service December 23, 2019 Impression / Recommendations Impression 74-year-old male with schizophrenia who lives at the [facility], is on a 305 IOC, discharged from our unit 1 month ago after a serious suicide attempt by acetaminophen overdose, who he presents with worsening mood in the context of worsening auditory hallucinations and SI with thoughts to overdose. His psychotic symptoms have been refractory to treatment and very challenging to treat, and during his last hospitalization he was here for > 1 month and had numerous medication trials, with poor response/severe side effects to multiple antipsychotics. It appears that multiple medications that were discontinued here were restarted shortly after discharge, and that this contributed to worsening symptoms per the [facility] staff's report. We will need to coordinate care with his outpatient treatment team, and have scheduled the treatment planning meeting for tomorrow after his 306 conversion hearing. For now, we will resume the medication regimen he was on at the time of discharge, as he was doing well on that combination of meds. Inpatient treatment is medically necessary due to the severity of symptoms and risk for suicide if discharged. (1) Suicidal ideation: 12/22 -every 15 minute checks for safety. -Continue inpatient treatment, signed in voluntarily but as he is on a 305 IOC, we will have a 3 of 6 conversion hearing tomorrow. Patient advised and aware. -Encourage group attendance, work on healthy coping skills and discharge safety plan. (2) Schizophrenia: 5/6 -resume medication regimen he was on at the time of discharge 1 month ago, as he was doing well on that combination of medications, and per her [facility] staff worsened after some of his previous medications (mirtazapine, clonidine, and alprazolam) were resumed shortly after discharge. -Continue perphenazine 4 mg every morning and 8 mg q. 1700 hrs., temazepam 7.5 mg at bedtime, melatonin 10 mg at bedtime as needed insomnia, and benztropine 0.5 mg as needed for EPS. -Offer alprazolam 0.5 mg twice daily as needed anxiety/panic. -Treatment planning meeting to include [facility] staff, his outpatient employment evaluator/case manager, and will invite outpatient psychiatrist as well, to be held after his commitment hearing tomorrow. He has been refusing recommendations for outpatient therapy for some time, and unaware of any other services available in the community currently, as clubhouse/psych rehab close due to pandemic. Schizophrenia type: unspecified Qualified Code(s): F20.9 - Schizophrenia, unspecified (3) Hematuria: 12/22 -hematuria noted on UA in the ER, has had this several times in the past as well. No sign of AMOS or UTI, and ER physician recommended outpatient follow-up with PCP, Dr. Lopez. Hematuria type: other microscopic Qualified Code(s): R31.29 - Other microscopic hematuria (4) Memory changes: 12/22 -patient was seen by neurology just prior to discharge at the beginning of November; noted multiple risk factors for dementia, and recommended vitamin B12 level (1371), brain MRI to identify lesions contributing to cognitive impairment, and neuropsychological testing. She also recommended avoiding benzodiazepines. A brain MRI was done on the day of discharge and was notable for mild progressive nonspecific foci of increased T2 signal within the white matter, likely on a small vessel basis, but negative for acute intracranial findings, masses, subacute or acute infarction. He is scheduled to follow-up with Dr. Caal on 02/02/2020. Risk Factors Assessment Male: Yes : Yes Do You Have Access To A Gun?: No Health Problems: Yes Mental Health Diagnoses: Yes Substance Use Disorders: Yes Previous Attempt: Yes Previous Attempt; Highly Lethal: Yes Family History of Suicide: Yes Previous Psychiatric Hospitalization: Yes Hopelessness: Yes Smoker: Yes Protective Factors Assessment Rastafari Beliefs: No : No Responsible for Young Children: No Employed: No Stable Relationships: No Supportive Family: No Good Rapport with Provider: Yes Psychiatric History Identifying Data SCOTT ROBERTO is a 74-year-old M who currently lives in [facility], has a history of schizophrenia, and was admitted on 12/22/19 16:55 on a 201 voluntary commitment for suicidal ideation. He is on a 305 IOC. Chief Complaint " The voices got really loud". History of Present Illness The patient is well-known to me from multiple past episodes of care, most recently on our unit for 36 days after a serious suicide attempt by a cetaminophen overdose, and discharged 11/19/2019. During that hospitalization, he had multiple medication adjustments and several different medication trials (detailed below), and was ultimately discharged on perphenazine 4 mg every morning and 8 mg every 5 p.m., temazepam 7.5 mg at bedtime, benztropine 0.5 mg daily as needed for EPS, melatonin 10 mg at bedtime as needed insomnia, and docusate 100 mg twice daily. He presented to the ER yesterday, 12/22/2019, reporting suicidal ideation with thoughts to overdose on acetaminophen, in the context of a worsening buzzing sound in his right ear which causes him to feel agitated and suicidal. He said he had been not able to sleep for 5 or 6 nights, so contacted his outpatient psychiatrist Dr. Alves, who prescribed temazepam. He reported adherence with his medication regimen, did not feel safe returning to the [facility], and requested inpatient treatment. He was mildly hypertensive in the ER, vital signs otherwise normal. Admission labs: CBC normal, CMP notable for sodium 134, glucose 173, normal LFTs, TSH 1.970, UA notable for trace ketones 1+ blood, trace leukocyte esterase, and 10-30 RBCs. UDS negative. On my assessment, he reports mood worsened 1 to 2 weeks prior to hospitalization in the context of worsening auditory hallucinations of voices and a buzzing sound in his right ear. Although his auditory hallucinations are longstanding, when they are exacerbated, they are overwhelming and he often develops suicidal thoughts. He denies any recent medication changes, but R staff report that all of his medications were changed after seeing his outpatient psychiatrist, and that he was put back on the medications he was taking prior to hospitalization, and was noticeably more irritable and depressed. Per external medication history, Dr. Alves continued the perphenazine that he was discharged from the hospital on, but discontinued temazepam and resumed alprazolam 0.5 mg on 11/23/2019, mirtazapine 7.5 mg, and clonidine 0.1 mg at bedtime. The patient initially states that life at the [facility] for the past month has been "I guess okay," then says "it's miserable there, nobody talks to anybody." He spends his time "reading on the Internet, the news," but denies that this causes stress or contributes to depressed mood. He has been taking daily walks outside, and reports stable appetite, with no weight changes. He states that sleep worsened about a week ago, and he did not sleep at all for 6 days, until he was put back on temazepam. He is unable to identify goals for hospitalization. Past Psychiatric History Current Psychiatric Diagnosis: Schizophrenia Outpatient Services: Outpatient Services: Psychiatrist - Dr. Alves - [facility] - Colin Bahena Guadalupe Refuses therapy Previous Psych Admissions: [facility]: 09/2016, 02/2019 - 05/2019; 06/2019, 08/2019, 11/06/2019 [facility] [place]: 05/2019 [facility] - 04/2018 Several other inpatient psychiatric admissions - [facility], [place], and a state hospitalization at [place] (2013) Do You Have Access To A Gun?: No History of Previous Suicide Attempt: Yes Describe Attempts in the Past: Overdoses-1 in 1999, Tylenol overdose 09/2019 (last hospitalization) Past Medication Trials: 1. Zyprexa 2. Risperdal 3. Abilify 4. Haldol - dystonia 5. Amitriptyline 6. Imipramine 7. Ambien 8. Thorazine - NMS 9. Temazepam 10. Cymbalta - GI symptoms 11. Navane 12. Loxitane 13. Invega 14. Latuda 15. Ativan 16. Xanax 17. Seroquel 18. Clozapine 19. Alprazolam 20. Mirtazapine -discontinued during most recent hospitalization due to inefficacy 21. Clonidine -discontinued during most recent hospitalization due to fatigue, fall risk, and gait unsteadiness 22. Ziprasidone -discontinued during most recent hospitalization due to inefficacy 23. Clozapine -trial during most recent hospitalization, discontinued due to acute worsening of mental status with confusion, shuffling gait, cogwheel rigidity, and restlessness 24. Benztropine -for EPS 25. Trihexyphenidyl -for EPS Allergies Allergy/AdvReac Type Severity Reaction Status Date / Time No Known Allergies Allergy Verified 12/22/19 14:52 Home Medications Home Medications Medication Instructions Recorded Confirmed Type benztropine 0.5 mg PO DAILY PRN 10/08/19 12/22/19 History docusate sodium 100 mg PO BID 10/08/19 12/22/19 History melatonin 10 mg PO HS PRN #0 tab 11/19/19 12/22/19 Rx perphenazine 4 mg PO QAM #30 tab 11/19/19 12/22/19 Rx perphenazine 8 mg PO 1700 #30 tab 11/19/19 12/22/19 Rx temazepam 7.5 mg PO HSZ #10 cap 11/19/19 12/22/19 Rx aspirin 81 mg tablet,delayed 81 mg PO DAILY #30 tab 11/25/19 12/22/19 Rx release alprazolam 0.5 mg PO BID PRN 12/23/19 12/23/19 History clonidine HCl 0.1 mg PO HS 12/23/19 12/23/19 History mirtazapine 7.5 mg PO HS 12/23/19 12/23/19 History Family History Family History of: Psychosis/ThoughtDisorder and Suicide Completion Family Mental Health History Comment: Cousin completed suicide; family hx of schizophrenia-Mother Alcohol History Hx of Alcohol Use Over the Past 12 Months: No AUDIT Total Score: 0 Smoking Use tobacco type: cigarettes Smoking Status: Current some day smoker Smoking packs per day: 0.2 Substance History Hx of Prescription Med Misuse Over the Past 12 Months: No Hx of Over the Counter Med Misuse Over the Past 12 Months: No Hx of Inhalent Misuse Over the Past 12 Months: No Hx of Organic Substance Use Over the Past 12 Months: No Hx of Illegal Substances/Street Drug Use Over Past 12 Months: No Problems as a Result of Past Substance Use: None Identified Problems as a Result of Past Substance Use Comments: Hx of benzo abuse Personal History Living Arrangements: [facility] Born In: [place], but moved frequently Beliefs That Will Affect Care: None Current Legal Problems: No Hx Legal Problems: No Hx Traumatic Life Events: No Patient History Medical History Benzodiazepine abuse Closed head injury Fall Hypertension Hypokalemia Leukocytosis (08/14/13) Rhabdomyolysis (07/21/13) Scalp laceration Schizophrenia (Chronic) Tobacco use disorder Surgical History No pertinent past surgical history Family History Other No pertinent family history Social History Preferred Language: Sierra Leonean Communication Ability: Effective 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 Beliefs That Will Affect Care: None Current Living Situation: Alone Feels Safe at Home: No Is there a partner from a previous relationship who is making you feel unsafe now?: No and Hesitant to Answer Smoking Status: Current every day smoker Tobacco Type: cigarettes ; Hx Alcohol Use: No Hx Substance Use: No Review of Systems Review of Systems: All systems reviewed & are unremarkable except as noted in HPI & below Physical Exam Psychiatric: Orientation: alert, oriented x 3 and cooperative Apperance: ap propriately dressed, appropriately groomed and appeared stated age Calm and cooperative, seated on the edge of the bed in no acute distress. Eye Contact: good eye contact Motor Behavior: steady gait and station and no abnormal motor movements Speech: normal rate/rhythm/volume of speech Affect: + blunted affect Mood: + depressed mood Thought Process: goal directed thought process and + concrete thought process Thought Content: reality based without delusions and + hopelessness Suicidal Thoughts: + reports suicidal thoughts Homicidal Thoughts: denies homicidal thoughts Hallucinations: + auditory hallucinations; no visual hallucinations Cognition: recent memory grossly intact, attention grossly intact and language grossly intact Insight: + fair insight Judgement: + fair judgement Vital Signs (Past 24 Hours): Last Vital Signs Temp 36.6 C 12/23/19 06:43 Pulse 79 12/23/19 06:44 Resp 18 12/23/19 06:43 BP 118/69 12/23/19 06:44 Pulse Ox 97 12/22/19 17:35 Exam Statement: A physical exam was performed in the ER prior to admission to the unit by Dr. Cristina gudino. I accept that physical as correct/medical clearance for the inpatient physical exam. Results & Data ([facility]) Laboratory Results Laboratory Results - last 24 hr 12/22/19 12/22/19 12/22/19 14:30 14:30 15:45 WBC 9.99 RBC 5.01 Hgb 16.0 Hct 46.4 MCV 92.6 MCH 31.9 MCHC 34.5 RDW Std Deviation 43.4 RDW Coeff of Namita 12.9 Plt Count 301 MPV 8.8 Immature Gran % (Auto) 0.1 Neut % (Auto) 73.6 Lymph % (Auto) 15.0 Duc[place] % (Auto) 8.6 Eos % (Auto) 2.4 Baso % (Auto) 0.3 Immature Gran # (Auto) 0.01 Neut # (Auto) 7.35 H Lymph # (Auto) 1.50 [place]ne # (Auto) 0.86 H Eos # (Auto) 0.24 Baso # (Auto) 0.03 Sodium Potassium Chloride Carbon Dioxide Anion Gap BUN Creatinine Est Cr Clr Drug Dosing Est GFR ( Amer) Est GFR (Non-Af Amer) BUN/Creatinine Ratio Glucose Calcium Total Bilirubin AST ALT Alkaline Phosphatase Total Protein Albumin Globulin Albumin/Globulin Ratio TSH Urine Color Yellow Urine Appearance Clear Urine pH 7.5 Ur Specific Ra[place]ord 1.013 Urine Protein Negative Urine Glucose (UA) Negative Urine Ketones Trace H Urine Blood 1+ H Urine Nitrite Negative Urine Bilirubin Negative Urine Urobilinogen Negative Ur Leukocyte Esterase Trace H Urine WBC (Auto) 1-5 Urine RBC (Auto) 10-30 H U Hyaline Cast (Auto) 1-5 U Epithel Cells (Auto) 0-5 Urine Bacteria (Auto) Negative Salicylates Urine Opiates Screen Neg Ur Methadone, Qual Neg Acetaminophen Urine Barbiturates Neg Ur Phencyclidine (PCP) Neg U Amphetamin/Meth Scrn Neg MDMA (Ecstasy) Screen Neg U Benzodiazepines Scrn Neg Ur Cocaine Metabolite Neg U Marijuana (THC) Screen Neg Ethyl Alcohol mg/dL 12/22/19 12/22/19 12/22/19 15:45 15:45 15:45 WBC RBC Hgb Hct MCV MCH MCHC RDW Std Deviation RDW Coeff of Namita Plt Count MPV Immature Gran % (Auto) Neut % (Auto) Lymph % (Auto) [place] % (Auto) Eos % (Auto) Baso % (Auto) Immature Gran # (Auto) Neut # (Auto) Lymph # (Auto) [place] # (Auto) Eos # (Auto) Baso # (Auto) Sodium 134 L Potassium 3.8 Chloride 101 Carbon Dioxide 22 Anion Gap 11.0 BUN 14 Creatinine 0.83 Est Cr Clr Drug Dosing 74.1 Est GFR ( Amer) 101.2 Est GFR (Non-Af Amer) 87.3 BUN/Creatinine Ratio 17.3 Glucose 173 H Calcium 9.4 Total Bilirubin 0.7 AST 24 ALT 31 Alkaline Phosphatase 105 Total Protein 8.0 Albumin 4.2 Globulin 3.8 Albumin/Globulin Ratio 1.1 TSH 1.970 Urine Color Urine Appearance Urine pH Ur Specific [place] Urine Protein Urine Glucose (UA) Urine Ketones Urine Blood Urine Nitrite Urine Bilirubin Urine Urobilinogen Ur Leukocyte Esterase Urine WBC (Auto) Urine RBC (Auto) U Hyaline Cast (Auto) U Epithel Cells (Auto) Urine Bacteria (Auto) Salicylates < 1.7 L Urine Opiates Screen Ur Methadone, Qual Acetaminophen < 2 L Urine Barbiturates Ur Phencyclidine (PCP) U Amphetamin/Meth Scrn MDMA (Ecstasy) Screen U Benzodiazepines Scrn Ur Cocaine Metabolite U Marijuana (THC) Screen Ethyl Alcohol mg/dL < 3.0 Current Inpatient Medications Current Inpatient Medications: Current Inpatient Medications Acetaminophen (Tylenol) 650 mg PO Q4H PRN PRN Reason: Headache or Minor Fever Stop: 01/21/20 16:53 Al Hydrox/Mg Hydrox/Simethicone (Maalox) 30 ml PO Q4H PRN PRN Reason: GI Upset Stop: 01/21/20 16:53 Aspirin (Ecotrin Ectab) 81 mg PO DAILY MAG Stop: 01/22/20 08:59 Last Admin: 12/23/19 08:33 Dose: 81 mg Documented by: Benztropine Mesylate (Cogentin) 0.5 mg PO DAILY PRN; Protocol PRN Reason: eps Stop: 01/21/20 16:57 Bismuth Subsalicylate (Kaopectate) 15 ml PO PRN PRN PRN Reason: Loose Stool Stop: 01/21/20 16:53 Docusate Sodium (Colace) 100 mg PO BID MAG Stop: 01/21/20 20:59 Last Admin: 12/23/19 08:33 Dose: 100 mg Documented by: Hydroxyzine HCl (Vistaril) 50 mg PO HSZ PRN PRN Reason: Insomnia Stop: 01/21/20 16:53 Hydroxyzine HCl (Vistaril) 25 mg PO Q4H PRN PRN Reason: Anxiety Stop: 01/21/20 16:53 Magnesium Hydroxide (Milk Of Magnesia) 30 ml PO DAILY PRN PRN Reason: Constipation Stop: 01/21/20 16:53 Perphenazine (Trilafon) 4 mg PO QAM MAG Stop: 01/22/20 08:59 Last Admin: 12/23/19 08:33 Dose: 4 mg Documented by: Perphenazine (Trilafon) 8 mg PO 1700 MAG Stop: 01/21/20 18:59 Last Admin: 12/22/19 19:40 Dose: 8 mg Documented by: Sodium Chloride (Gordon Nasal) 1 - 2 sprays NA PRN PRN PRN Reason: Nasal Dryness/Congestion Stop: 01/21/20 16:53 Temazepam (Restoril) 7.5 mg PO HSZ MAG Stop: 01/21/20 21:59 Last Admin: 12/22/19 21:02 Dose: 7.5 mg Documented by:
[2019-12-23] MEDS ORDERED: ALPRAZolam 0.5 MG TABLET PO PRN (11:40)
[2019-12-23] MEDS ORDERED: MELATONIN 3 MG TAB PO PRN (11:51)
[2019-12-23] MEDS: TEMAZEPAM 7.5 MG CAPSULE PO SCH (20:53)
--- NOTE | 2019-12-24 08:25 | Psychiatric Progress Note ---
Date of Service December 24, 2019 Impression / Recommendations Impression 74-year-old male with schizophrenia who lives at the [facility], is on a 305 IOC, discharged from our unit 1 month ago after a serious suicide attempt by acetaminophen overdose, who presented requesting hospitalization due to suicidal thoughts with a plan to overdose in the context of worsening auditory hallucinations, including a loud buzzing sound and command auditory hallucinations to kill himself. His psychotic symptoms have been refractory to treatment and very challenging to treat, and during his last hospitalization he was here for > 1 month and had numerous medication trials, with poor response/severe side effects to multiple antipsychotics. Multiple medications were discontinued here but then restarted shortly after discharge, and shelter staff noted that his mental state worsened when they were resumed. He has had ongoing conflict with the shelter staff, and although he had agreed to allow them to hold all of his medications for safety, he did not follow through on this and was keeping some of his medications in his room, and obvious safety concern given his history of abusing benzodiazepines and overdoses. He will have a 306 conversion hearing today, and that a treatment team planning meeting including [facility] staff and his casework specialist. On admission, we resumed perphenazine and temazepam, the medication regimen he was on at the time of discharge, as he was doing well on that combination of meds. Inpatient treatment is medically necessary due to the severity of symptoms and risk for suicide if discharged. (1) Suicidal ideation: 5/6 -every 15 minute checks for safety. -Continue inpatient treatment, signed in voluntarily but as he is on a 305 IOC, we will have a 3 of 6 conversion hearing tomorrow. Patient advised and aware. -Encourage group attendance, work on healthy coping skills and discharge safety plan. 5/7 -SI continues in response to command auditory hallucinations and loud buzzing noise. (2) Schizophrenia: 5/6 -resume medication regimen he was on at the time of discharge 1 month ago, as he was doing well on that combination of medications, and per her [facility] staff worsened after some of his previous medications (mirtazapine, clonidine, and alprazolam) were resumed shortly after discharge. Spoke with his outpatient psychiatrist to coordinate care regarding medications. -Continue perphenazine 4 mg every morning and 8 mg q. 1700 hrs., temazepam 7.5 mg at bedtime, melatonin 10 mg at bedtime as needed insomnia, and benztropine 0.5 mg as needed for EPS. -Offer alprazolam 0.5 mg twice daily as needed anxiety/panic. -Treatment planning meeting to include [facility] staff, his outpatient casework specialist, and will invite outpatient psychiatrist as well, to be held after his commitment hearing tomorrow. He has been refusing recommendations for outpatient therapy for some time, and unaware of any other services available in the community currently, as clubhouse/psych rehab close due to pandemic. 12/23 -306 hearing held, now on a 305 involuntary commitment. We will need to transition back to [facility] at discharge. -Treatment planning meeting held -will send medications to [facility] order [facility] at discharge. -Patient indicates willingness to consider outpatient therapy, which is indicated but he has always refused in the past. -Patient has a history of abusing benzodiazepines, but also has significant distress due to tinnitus and chronic insomnia, for which temazepam has been helpful. Benefits includes observed ability to tolerate low-dose temazepam without significant side effects and efficacy of temazepam with failure of multiple other medications for sleep/anxiety/hallucinations. Risks include potential for abuse, intentional overdose, ongoing suicidality with recent suicide attempt by overdose. We attempted to mitigate these by coordinating a plan for [facility] staff to hold all of the patient's medications and dispense them daily, so that he would not have access to large amounts of pills which would reduce the potential for abuse or intentional overdose. If he is not willing to do this, the risks likely outweigh the benefits, and benzodiazepines should be discontinued. -Ongoing auditory hallucinations as above; increase perphenazine to 8 mg twice daily. -Fasting labs for monitoring on an antipsychotic reviewed from 02/2019: Glucose 83, FLP all values within normal limits. -Discontinue alprazolam, in order to avoid polypharmacy and worsening confusion. (3) Hematuria: 12/22 -hematuria noted on UA in the ER, has had this several times in the past as well. No sign of AMOS or UTI, and ER physician recommended outpatient follow-up with PCP, Dr. Lopez. (4) Memory changes: 12/22 -patient was seen by neurology just prior to discharge at the beginning of November; noted multiple risk factors for dementia, and recommended vitamin B12 level (1371), brain MRI to identify lesions contributing to cognitive impairment, and neuropsychological testing. She also recommended avoiding benzodiazepines. A brain MRI was done on the day of discharge and was notable for mild progressive nonspecific foci of increased T2 signal within the white matter, likely on a small vessel basis, but negative for acute intracranial findings, masses, subacute or acute infarction. He is scheduled to follow-up with Dr. Caal on 02/02/2020. Risk Factors Assessment Male: Yes : Yes Do You Have Access To A Gun?: No Health Problems: Yes Mental Health Diagnoses: Yes Substance Use Disorders: Yes Previous Attempt: Yes Previous Attempt; Highly Lethal: Yes Family History of Suicide: Yes Previous Psychiatric Hospitalization: Yes Hopelessness: Yes Smoker: Yes Protective Factors Assessment Mu-Ism Beliefs: No : No Responsible for Young Children: No Employed: No Stable Relationships: No Supportive Family: No Good Rapport with Provider: Yes Interval History Identifying Information SCOTT ROBERTO is a 74-year-old M who currently lives in [facility], has a history of schizophrenia, and was admitted on 12/22/19 16:55 on a 201 voluntary commitment for suicidal ideation. He is on a 305 IOC, and had a conversion hearing 12/24/2019 to transition to involuntary inpatient commitment. Chief Complaint "The voices are terrible". Review of Systems Notes 10 systems reviewed; negative except as stated above. Sleep Information Total Hours of Sleep: 8 Meal Information Percent Meal Consumed - Breakfast: 100 Percent Meal Consumed - Lunch: 100 Percent Meal Consumed - Dinner: 100 Subjective Subjective Patient was seen & assessed and interval progress reviewed with nursing and social work. Staff report the patient was cooperative with assessments yesterday, took medications as prescribed, and although he came out to eat with peers, he had little interaction. He attended evening community meeting, rated his mood 8/10, reported feeling "tired," and said that his goal of treatment was to find a medication that would help him sleep. Social work contacted his shelter staff, who reported that he left the [facility] shortly after noon the day of admission, and when they had not heard from him by 9 PM, they called the police and were informed that he had been hospitalized. They stated the patient had been more irritable and depressed after being resumed on medications that were discontinued when he was in the hospital. lease out worker also spoke with his casework specialist this morning, who stated the patient had been having difficulties with shelter staff and rules, as well as multiple medication changes by his outpatient psychiatrist. He was on a corrective action plan at the [facility] due to unwillingness to follow rules with respect to medications, for example picking up prescriptions from his pharmacy and handing in only a portion of the medication to the shelter staff. While in the hospital after his overdose last month, he had agreed to allow shelter staff to keep all medications secure and dispense them daily, but they found a stash of medications in his room. On my assessment today, the patient states that his mood is unchanged, he is distressed by the loud buzzing noise in his head and auditory hallucinations of voices, stating "they want to kill me, want me to commit suicide." He describes these auditory hallucinations as "terrible," and continues to endorse suicidal thoughts, but feels safe in the hospital. He initially declined recommendations to titrate perphenazine, stating "it does not do anything," but after further discussion of the dose range and that he is still on a fairly low dose, he agreed to try increasing it. He said he slept "a little bit," although nursing staff observed 8 hours of sleep with temazepam 7.5 mg. He is taking the perphenazine and denies side effects. He struggles to identify goals both for inpatient and outpatient treatment, and tends to denigrate his current treatment team members. He complains that his casework specialist "does not have any real skills, he is not a therapist," and when reflected that rehabilitation caseworker are not therapist, and perhaps he would be willing to work with a therapist, he indicates that he would be willing to consider this. He was reminded of his 306 conversion hearing today, and treatment planning meeting afterwards, and remains in agreement with inpatient treatment. He attended the commitment hearing and did not contest or offer testimony. Treatment planning meeting w/ social work, outpatient casework specialist, and shelter staff: See social work note for complete details. Reviewed his recent course, challenges (refusal to follow [facility] rules), including rules around medications, as he filled a Xanax prescription from his psychiatrist and did not tell them about it, but kept it in his room. They have since removed it. He has always been resistant to letting staff assist him, wanting to do things on his own, and has usually refused community programming. They do not see him being able to successfully transition to independent living in the community, and have been looking at supportive living options, such as personal care homes in [place] or local assisted living facility such as [facility]. He did not like the facility in [place] that he saw (took a tour), and finances are an issue as well. They are recommending use of [facility], as they put all of the medications i the pill packs and send them through the mail. Summary of Past History Reviewed outpatient records from Dr. Alves: One progress note reviewed, signed 12/21/2019 but date of visit unclear. Patient reported lessening of psychotic symptoms, but ongoing, intermittent hallucinations. His speech was more organized, and he reported ongoing anxiety and insomnia. He was prescribed clonidine 0.1 mg at bedtime, temazepam 7.5 mg at bedtime, mirtazapine 15 mg at bedtime, perphenazine 4 mg every morning and 8 mg at bedtime, and melatonin and alprazolam were discontinued. Physical Exam Psychiatric Orientation: alert, oriented x 3 and cooperative Apperance: appropriately dressed, appropriately groomed and appeared stated age Eye Contact: good eye contact Motor Behavior: steady gait and station and no abnormal motor movements Speech: normal rate/rhythm/volume of speech Mildly irritated tone at times. Affect: + depressed affect, + irritable affect and + constricted affect Mood: + depressed mood Thought Process: goal directed thought process Mild paucity of thought content, answers somewhat concrete and have to ask r epeated questions for clarification. Suicidal Thoughts: + reports suicidal thoughts Ongoing suicidal thoughts and command auditory hallucinations; able to contract for safety inside the hospital, but not out. Homicidal Thoughts: denies homicidal thoughts Hallucinations: + auditory hallucinations; no visual hallucinations Cognition: recent memory grossly intact, attention grossly intact and language grossly intact Insight: + impaired insight Judgement: + impaired judgement Vital Signs (Past 24 Hours) Last Vital Signs Temp 36.7 C 12/24/19 06:44 Pulse 81 12/24/19 06:45 Resp 18 12/24/19 06:44 BP 136/82 12/24/19 06:45 Pulse Ox 97 12/22/19 17:35 Results & Data (U) Current Inpatient Medications Current Inpatient Medications: Current Inpatient Medications Acetaminophen (Tylenol) 650 mg PO Q4H PRN PRN Reason: Headache or Minor Fever Stop: 01/21/20 16:53 Al Hydrox/Mg Hydrox/Simethicone (Maalox) 30 ml PO Q4H PRN PRN Reason: GI Upset Stop: 01/21/20 16:53 Alprazolam (Xanax) 0.5 mg PO BID PRN PRN Reason: Anxiety Stop: 01/22/20 11:39 Aspirin (Ecotrin Ectab) 81 mg PO DAILY MAG Stop: 01/22/20 08:59 Last Admin: 12/23/19 08:33 Dose: 81 mg Documented by: Benztropine Mesylate (Cogentin) 0.5 mg PO DAILY PRN; Protocol PRN Reason: eps Stop: 01/21/20 16:57 Bismuth Subsalicylate (Kaopectate) 15 ml PO PRN PRN PRN Reason: Loose Stool Stop: 01/21/20 16:53 Docusate Sodium (Colace) 100 mg PO BID MAG Stop: 01/21/20 20:59 Last Admin: 12/23/19 20:53 Dose: 100 mg Documented by: Hydroxyzine HCl (Vistaril) 50 mg PO HSZ PRN PRN Reason: Insomnia Stop: 01/21/20 16:53 Hydroxyzine HCl (Vistaril) 25 mg PO Q4H PRN PRN Reason: Anxiety Stop: 01/21/20 16:53 Magnesium Hydroxide (Milk Of Magnesia) 30 ml PO DAILY PRN PRN Reason: Constipation Stop: 01/21/20 16:53 Melatonin (Melatonin) 3 mg PO HSZ PRN; Protocol PRN Reason: Sleep Stop: 01/22/20 11:50 Perphenazine (Trilafon) 4 mg PO QAM MAG Stop: 01/22/20 08:59 Last Admin: 12/23/19 08:33 Dose: 4 mg Documented by: Perphenazine (Trilafon) 8 mg PO 1700 MAG Stop: 01/21/20 18:59 Last Admin: 12/23/19 17:19 Dose: 8 mg Documented by: Sodium Chloride ([place] Nasal) 1 - 2 sprays NA PRN PRN PRN Reason: Nasal Dryness/Congestion Stop: 01/21/20 16:53 Temazepam (Restoril) 7.5 mg PO HSZ MAG Stop: 01/21/20 21:59 Last Admin: 12/23/19 20:53 Dose: 7.5 mg Documented by: Mental Health & Subst Abuse Tx Psychiatrist Name of Psychiatrist: [facility] - Dr. Alves Psychiatrist's Psychiatric Appointment Comment: Telehealth Therapist Name of Therapist: None Battery Stacker Name of Battery Stacker: Shruti Guadalupe Lowell Mcbride Phone Number for Battery Stacker: [phone] Post Discharge Appointments Primary Care Physician Name Of Family Doctor: [facility] - Dr. Jeff Lopez Primary Care Provider Appointment Comment: [address], [address], [place] [address] Neurologist Name of Neurologist: [facility] - Dr. Caal Neurologist's Date of Appointment with Neurologist: 02/02/20 Time of Appointment with Neurologist: 10:00 a.m. Neurology Appointment Comment: [address], [address], [place] [address] Contact Information Discharge Discharge Address: [address] [place] [address], [place] [address] (1) Hematuria Hematuria type: other microscopic Qualified Code(s): R31.29 - Other microscopic hematuria (2) Schizophrenia Schizophrenia type: unspecified Qualified Code(s): F20.9 - Schizophrenia, unspecified
[2019-12-24] MEDS: DOCUSATE SODIUM 100 MG CAP PO SCH ×2 (08:35→21:20)
[2019-12-24] MEDS: ASPIRIN 81 MG ECTAB PO SCH (08:35)
[2019-12-24] MEDS: PERPHENAZINE 2 MG TABLET PO SCH ×2 (08:36→16:04)
[2019-12-24] MEDS ORDERED: PERPHENAZINE 2 MG TABLET PO STA (09:12)
[2019-12-24] MEDS ORDERED: diazePAM 5 MG TABLET PO ONE (17:59)
[2019-12-24] MEDS: TEMAZEPAM 7.5 MG CAPSULE PO SCH (21:21)
[2019-12-25] MEDS: PERPHENAZINE 2 MG TABLET PO SCH ×2 (08:09→17:13)
[2019-12-25] MEDS: ASPIRIN 81 MG ECTAB PO SCH (08:09)
[2019-12-25] MEDS: DOCUSATE SODIUM 100 MG CAP PO SCH ×2 (08:09→20:02)
[2019-12-25] MEDS: diazePAM 5 MG TABLET PO SCH ×2 (11:13→20:02)
--- NOTE | 2019-12-25 13:00 | Psychiatric Progress Note ---
Date of Service December 25, 2019 Impression / Recommendations Impression 74-year-old male with schizophrenia who lives at the [facility], is on a 305 IOC, discharged from our unit 1 month ago after a serious suicide attempt by acetaminophen overdose, who presented requesting hospitalization due to suicidal thoughts with a plan to overdose in the context of worsening auditory hallucinations, including a loud buzzing sound and command auditory hallucinations to kill himself. His psychotic symptoms have been refractory to treatment and very challenging to treat, and during his last hospitalization he was here for > 1 month and had numerous medication trials, with poor response/severe side effects to multiple antipsychotics. Multiple medications were discontinued here but then restarted shortly after discharge, and [facility] staff noted that his mental state worsened when they were resumed. He has had ongoing conflict with the [facility] staff, and although he had agreed to allow them to hold all of his medications for safety, he did not follow through on this and was keeping some of his medications in his room, and obvious safety concern given his history of abusing benzodiazepines and overdoses. He will have a 306 conversion hearing today, and that a treatment team planning meeting including [facility] staff and his bilingual patient support caseworker. On admission, we resumed perphenazine and temazepam, the medication regimen he was on at the time of discharge, as he was doing well on that combination of meds. Inpatient treatment is medically necessary due to the severity of symptoms and risk for suicide if discharged. (1) Suicidal ideation: 5/6 -every 15 minute checks for safety. -Continue inpatient treatment, signed in voluntarily but as he is on a 305 IOC, we will have a 3 of 6 conversion hearing tomorrow. Patient advised and aware. -Encourage group attendance, work on healthy coping skills and discharge safety plan. 12/23 -SI continues in response to command auditory hallucinations and loud buzzing noise. 8 -Today the patient describes hearing human voices that command him to commit suicide. He expresses suicidal intent, that he says will become active when he leaves the hospital, but then adds that he does not have the means. He points to the fact that he tried taking an overdose of [id number] medicines and did not , and he adds, "You doctors will not give me [lethal drugs)." He adds that he has considered attempting to kill himself by taking rat poison, and perhaps an advisedly I explained to him that rat poison includes and emetic so that all that would do is make him feel very sick. (2) Schizophrenia: 12/22 -resume medication regimen he was on at the time of discharge 1 month ago, as he was doing well on that combination of medications, and per her [facility] staff worsened after some of his previous medications (mirtazapine, clonidine, and alprazolam) were resumed shortly after discharge. Spoke with his outpatient psychiatrist to coordinate care regarding medications. -Continue perphenazine 4 mg every morning and 8 mg q. 1700 hrs., temazepam 7.5 mg at bedtime, melatonin 10 mg at bedtime as needed insomnia, and benztropine 0.5 mg as needed for EPS. -Offer alprazolam 0.5 mg twice daily as needed anxiety/panic. -Treatment planning meeting to include [facility] staff, his outpatient bilingual patient support caseworker, and will invite outpatient psychiatrist as well, to be held after his commitment hearing tomorrow. He has been refusing recommendations for outpatient therapy for some time, and unaware of any other services available in the community currently, as clubhouse/psych rehab close due to pandemic. 12/23 -306 hearing held, now on a 305 involuntary commitment. We will need to transition back to [facility] at discharge. -Treatment planning meeting held -will send medications to [facility] order [facility] at discharge. -Patient indicates willingness to consider outpatient therapy, which is indicated but he has always refused in the past. -Patient has a history of abusing benzodiazepines, but also has significant distress due to tinnitus and chronic insomnia, for which temazepam has been helpful. Benefits includes observed ability to tolerate low-dose temazepam without significant side effects and efficacy of temazepam with failure of multiple other medications for sleep/anxiety/hallucinations. Risks include potential for abuse, intentional overdose, ongoing suicidality with recent suicide attempt by overdose. We attempted to mitigate these by coordinating a plan for [facility] staff to hold all of the patient's medications and dispense them daily, so that he would not have access to large amounts of pills which would reduce the potential for abuse or intentional overdose. If he is not willing to do this, the risks likely outweigh the benefits, and benzodiazepines should be discontinued. -Ongoing auditory hallucinations as above; increase perphenazine to 8 mg twice daily. -Fasting labs for monitoring on an antipsychotic reviewed from 02/2019: Glucose 83, FLP all values within normal limits. -Discontinue alprazolam, in order to avoid polypharmacy and worsening confusion. 12/24 -The patient continues to believe, as he has fairly consistently over the years, that he is being persecuted by various entities, possibly in the form of humans, or possibly powerful computers or robots that are seeking his , either by murdering him or by convincing him to commit suicide. His response to questions such as, "why do you suppose they would want to do that" generally is quite concrete, and he responds by saying things such as "because they want me , that is why." -The patient's report today is that he responds favorably to diazepam, not because that medication stops him from hearing the "voices" in the "buzzing" or "chirping" sounds that he hears, but because it reduces his anxiety so he is less apt to be overwhelmed by the distress that it causes him. Staff indicate that he does seem to have responded to a as needed diazepam 5 mg dose given last evening. There is a history of benzodiazepine abuse, and at his age we are reluctant to use benzodiazepines. However, based on past experience with this patient, there is a risk of his becoming fully uncooperative and incorporating this into his delusional system. There is no question but that the patient does experience significant distress associated with his perceptual disturbances and his paranoid delusions. He is responding favorably to the temazepam at bedtime and does have a history of responding to benzodiazepines, as long as they are given in modest dosages and are carefully monitored. Accordingly, he was placed diazepam 5 mg twice a day standing dose starting today. (3) Hematuria: 12/22 -hematuria noted on UA in the ER, has had this several times in the past as well. No sign of AMOS or UTI, and ER physician recommended outpatient follow-up with PCP, Dr. Lopez. (4) Memory changes: 12/22 -patient was seen by neurology just prior to discharge at the beginning of November; noted multiple risk factors for dementia, and recommended vitamin B12 level (1371), brain MRI to identify lesions contributing to cognitive impairment, and neuropsychological testing. She also recommended avoiding benzodiazepines. A brain MRI was done on the day of discharge and was notable for mild progressive nonspecific foci of increased T2 signal within the white matter, likely on a small vessel basis, but negative for acute intracranial findings, masses, subacute or acute infarction. He is scheduled to follow-up with Dr. Caal on 02/02/2020. 12/24 -The patient has had a number of encounters with me during the past year, but is unable to recall my name. He does note that on the psychiatrist, and today he is oriented to person, place, time and situation. When I mentioned that I had not heard him complain of right temporal pain before, he replied by saying, "I have just now started calling in a pain, because no one seems to understand how awful [the voices and noises] are." Risk Factors Assessment Male: Yes : Yes Do You Have Access To A Gun?: No Health Problems: Yes Mental Health Diagnoses: Yes Substance Use Disorders: Yes Previous Attempt: Yes Previous Attempt; Highly Lethal: Yes Family History of Suicide: Yes Previous Psychiatric Hospitalization: Yes Hopelessness: Yes Smoker: Yes Protective Factors Assessment Jew Beliefs: No : No Responsible for Young Children: No Employed: No Stable Relationships: No Supportive Family: No Good Rapport with Provider: Yes Interval History Identifying Information SCOTT ROBERTO is a 74-year-old M who currently lives in [facility], has a history of schizophrenia, and was admitted on 12/22/19 16:55 on a 201 voluntary commitment for suicidal ideation. He is on a 305 IOC, and had a conversion hearing 12/24/2019 to transition to involuntary inpatient commitment. Chief Complaint " I have got pain right here [points to his right temporal area)." Review of Systems Sleep Information Total Hours of Sleep: 7.5 Meal Information Percent Meal Consumed - Breakfast: 100 Percent Meal Consumed - Lunch: 100 Percent Meal Consumed - Dinner: 100 Subjective Subjective Patient was seen & assessed and interval progress reviewed with treatment team. I met with the patient individually in order to assess his current mental status, evaluate his response to treatment, coordinate with the patient any necessary changes in his treatment regimen, and address issues questions and concerns that may arise. The patient began by telling me that the reason he has come to the hospital is that he is experiencing pain in his right temporal area [the area indicated by his pointing). When asked to characterize the pain, he struggled to do so, did not endorse terms such as, "sharp, burning, aching, piercing," etc. He also had difficulty answering the question "is the pain constant, orders it," but eventually said "I guess you can say it comes and goes. I then told him that my understanding from the treatment team was that he had come to the hospital because he is feeling suicidal and has been experiencing a troubling "buzzing sound" that he finds to be intolerable. He responded to that by saying, "that is what I mean. I call that a pain." The patient went on to say that the buzzing is very much like a "loud sharp" that causes emotional pain. I asked him to clarify why he would say that his "pain" is intermittent, and he replied by saying that sometimes the chirping or buzzing sound stopped so that "they can speak to me." I asked him to clarify who "they" were and he said "the people that are trying to get me to kill myself." Eventually, he tells me that he hears voices of several individuals that command him to commit suicide, "not here, but as soon as I leave the hospital." He does allow that he feels safe here, but also said that his plan is to commit suicide when he leaves the hospital. I asked him why he came to the hospital if his plan is to kill himself, and he said, "because I do not have the means to kill myself. They watch me to closely, so I thought I come here to see if you people can do anything about this pain." We discussed interventions that have helped in the past, the patient insists that the only thing that has helped with the auditory hallucinations referenced as "pain" is diazepam. He says that diazepam does not stop the noises and the voices, but allows him to avoid reacting to them and remain calm while it is happening. I also reminded him that previously he had told us that he felt that perphenazine had helped with the voices, but today he tells me that he does not believe that it has helped "at all." Physical Exam Psychiatric Orientation: alert, oriented x 3 and cooperative Apperance: appropriately dressed and appropriately groomed Eye Contact: good eye contact Motor Behavior: steady gait and station The patient's speech is largely nonspontaneous. There is little inflection in his voice, and he tends to speak in short, rather nasir sentences. Affect: + constricted affect Mood: + depressed mood Thought Process: + concrete thought process Thought Content: + delusions The patient reports that he is being persecuted by persons or machines that are trying to kill him or, alternatively, are trying to cause him to commit suicide. Suicidal Thoughts: + reports suicidal thoughts Patient reports that he is thinking of taking an overdose of rat poison once he leaves the hospital. Homicidal Thoughts: denies homicidal thoughts Hallucinations: + auditory hallucinations; no visual hallucinations and no tactile hallucinations Cognition: recent memory grossly intact and remote memory grossly intact Estimated Intelligence: + above average estimated intelligence Insight: + severely impaired insight Judgement: + poor judgement Vital Signs (Past 24 Hours) Last Vital Signs Temp 36.7 C 12/25/19 06:58 Pulse 84 12/25/19 07:01 Resp 18 12/25/19 06:58 BP 135/81 12/25/19 07:01 Pulse Ox 97 12/22/19 17:35 Results & Data ([facility]) Current Inpatient Medications Current Inpatient Medications: Current Inpatient Medications Acetaminophen (Tylenol) 650 mg PO Q4H PRN PRN Reason: Headache or Minor Fever Stop: 01/21/20 16:53 Al Hydrox/Mg Hydrox/Simethicone (Maalox) 30 ml PO Q4H PRN PRN Reason: GI Upset Stop: 01/21/20 16:53 Aspirin (Ecotrin Ectab) 81 mg PO DAILY [facility] Stop: 01/22/20 08:59 Last Admin: 12/25/19 08:09 Dose: 81 mg Documented by: Benztropine Mesylate (Cogentin) 0.5 mg PO DAILY PRN; Protocol PRN Reason: eps Stop: 01/21/20 16:57 Bismuth Subsalicylate (Kaopectate) 15 ml PO PRN PRN PRN Reason: Loose Stool Stop: 01/21/20 16:53 Diazepam (Valium) 5 mg PO BID [facility] Stop: 01/24/20 10:14 Last Admin: 12/25/19 11:13 Dose: 5 mg Documented by: Docusate Sodium (Colace) 100 mg PO BID [facility] Stop: 01/21/20 20:59 Last Admin: 12/25/19 08:09 Dose: 100 mg Documented by: Hydroxyzine HCl (Vistaril) 50 mg PO HSZ PRN PRN Reason: Insomnia Stop: 01/21/20 16:53 Hydroxyzine HCl (Vistaril) 25 mg PO Q4H PRN PRN Reason: Anxiety Stop: 01/21/20 16:53 Magnesium Hydroxide (Milk Of Magnesia) 30 ml PO DAILY PRN PRN Reason: Constipation Stop: 01/21/20 16:53 Melatonin (Melatonin) 3 mg PO HSZ PRN; Protocol PRN Reason: Sleep Stop: 01/22/20 11:50 Perphenazine (Trilafon) 8 mg PO 0900,1700 MAG Stop: 01/23/20 16:59 Last Admin: 12/25/19 08:09 Dose: 8 mg Documented by: Sodium Chloride ([place] Nasal) 1 - 2 sprays NA PRN PRN PRN Reason: Nasal Dryness/Congestion Stop: 01/21/20 16:53 Temazepam (Restoril) 7.5 mg PO HSZ MAG Stop: 01/21/20 21:59 Last Admin: 12/24/19 21:21 Dose: 7.5 mg Documented by: Mental Health & Subst Abuse Tx Psychiatrist Name of Psychiatrist: [facility] - Dr. Alves Psychiatrist's Psychiatric Appointment Comment: Telehealth Therapist Name of Therapist: None Customer Success Representative Name of Customer Success Representative: Shruti Mcbride Phone Number for Customer Success Representative: [phone] Post Discharge Appointments Primary Care Physician Name Of Family Doctor: [facility] - Dr. Jeff Lopez Primary Care Provider Appointment Comment: [address], [address], [place] [address] Neurologist Name of Neurologist: [facility] - Dr. Caal Neurologist's Date of Appointment with Neurologist: 02/02/20 Time of Appointment with Neurologist: 10:00 a.m. Neurology Appointment Comment: [address], [address], [place] [address] Contact Information Discharge Discharge Address: [address] [place] [id number] (1) Schizophrenia Schizophrenia type: unspecified Qualified Code(s): F20.9 - Schizophrenia, unspecified (2) Hematuria Hematuria type: other microscopic Qualified Code(s): R31.29 - Other m icroscopic hematuria
[2019-12-25] MEDS: TEMAZEPAM 7.5 MG CAPSULE PO SCH (21:02)
[2019-12-26] MEDS: PERPHENAZINE 2 MG TABLET PO SCH ×2 (08:22→16:33)
[2019-12-26] MEDS: ASPIRIN 81 MG ECTAB PO SCH (08:22)
[2019-12-26] MEDS: diazePAM 5 MG TABLET PO SCH (08:23)
[2019-12-26] MEDS: DOCUSATE SODIUM 100 MG CAP PO SCH ×2 (08:23→21:09)
--- NOTE | 2019-12-26 09:08 | Psychiatric Progress Note ---
Date of Service December 26, 2019 Impression / Recommendations Impression 74-year-old male with schizophrenia who lives at the [facility], is on a 305 IOC, discharged from our unit 1 month ago after a serious suicide attempt by acetaminophen overdose, who presented requesting hospitalization due to suicidal thoughts with a plan to overdose in the context of worsening auditory hallucinations, including a loud buzzing sound and command auditory hallucinations to kill himself. His psychotic symptoms have been refractory to treatment and very challenging to treat, and during his last hospitalization he was here for > 1 month and had numerous medication trials, with poor response/severe side effects to multiple antipsychotics. Multiple medications were discontinued here but then restarted shortly after discharge, and skilled nursing staff noted that his mental state worsened when they were resumed. He has had ongoing conflict with the skilled nursing staff, and although he had agreed to allow them to hold all of his medications for safety, he did not follow through on this and was keeping some of his medications in his room, and obvious safety concern given his history of abusing benzodiazepines and overdoses. He had a 306 conversion hearing and is presently admitted on a 305 involuntary inpatient admission. A meeting has been held with the CR[facility] staff, patient's adult protective caseworker, and members of our treatment team - outpatient psychiatrist not able to attend but was invited. On admission, we resumed perphenazine and temazepam, the medication regimen he was on at the time of discharge, as he was doing well on that combination of meds. Inpatient treatment is medically necessary due to the severity of symptoms and risk for suicide if discharged. (1) Suicidal ideation: 5/6 -every 15 minute checks for safety. -Continue inpatient treatment, signed in voluntarily but as he is on a 305 IOC, we will have a 3 of 6 conversion hearing tomorrow. Patient advised and aware. -Encourage group attendance, work on healthy coping skills and discharge safety plan. 57 -SI continues in response to command auditory hallucinations and loud buzzing noise. 8 -Today the patient describes hearing human voices that command him to commit suicide. He expresses suicidal intent, that he says will become active when he leaves the hospital, but then adds that he does not have the means. He points to the fact that he tried taking an overdose of ryvd-iqy-okctych medicines and did not , and he adds, "You doctors will not give me [lethal drugs)." He adds that he has considered attempting to kill himself by taking rat poison, and perhaps an advisedly I explained to him that rat poison includes and emetic so that all that would do is make him feel very sick. 12/25 - States today "I will commit suicide as soon as I leave the hospital" (2) Schizophrenia: 12/22 -resume medication regimen he was on at the time of discharge 1 month ago, as he was doing well on that combination of medications, and per her CRR staff worsened after some of his previous medications (mirtazapine, clonidine, and alprazolam) were resumed shortly after discharge. Spoke with his outpatient psychiatrist to coordinate care regarding medications. -Continue perphenazine 4 mg every morning and 8 mg q. 1700 hrs., temazepam 7.5 mg at bedtime, melatonin 10 mg at bedtime as needed insomnia, and benztropine 0.5 mg as needed for EPS. -Offer alprazolam 0.5 mg twice daily as needed anxiety/panic. -Treatment planning meeting to include CRR staff, his outpatient adult protective caseworker, and will invite outpatient psychiatrist as well, to be held after his commitment hearing tomorrow. He has been refusing recommendations for outpatient therapy for some time, and unaware of any other services available in the community currently, as clubhouse/psych rehab close due to pandemic. 12/23 -306 hearing held, now on a 305 involuntary commitment. We will need to transition back to [facility] at discharge. -Treatment planning meeting held -will send medications to [place] [facility] mail order pharmacy at discharge. -Patient indicates willingness to consider outpatient therapy, which is indicated but he has always refused in the past. -Patient has a history of abusing benzodiazepines, but also has significant distress due to tinnitus and chronic insomnia, for which temazepam has been helpful. Benefits includes observed ability to tolerate low-dose temazepam without significant side effects and efficacy of temazepam with failure of multiple other medications for sleep/anxiety/hallucinations. Risks include potential for abuse, intentional overdose, ongoing suicidality with recent suicide attempt by overdose. We attempted to mitigate these by coordinating a plan for CRR staff to hold all of the patient's medications and dispense them daily, so that he would not have access to large amounts of pills which would reduce the potential for abuse or intentional overdose. If he is not willing to do this, the risks likely outweigh the benefits, and benzodiazepines should be discontinued. -Ongoing auditory hallucinations as above; increase perphenazine to 8 mg twice daily. -Fasting labs for monitoring on an antipsychotic reviewed from 02/2019: Glucose 83, FLP all values within normal limits. -Discontinue alprazolam, in order to avoid polypharmacy and worsening confusion. 12/24 -The patient continues to believe, as he has fairly consistently over the years, that he is being persecuted by various entities, possibly in the form of humans, or possibly powerful computers or robots that are seeking his , either by murdering him or by convincing him to commit suicide. His response to questions such as, "why do you suppose they would want to do that" generally is quite concrete, and he responds by saying things such as "because they want me , that is why." -The patient's report today is that he responds favorably to diazepam, not because that medication stops him from hearing the "voices" in the "buzzing" or "chirping" sounds that he hears, but because it reduces his anxiety so he is less apt to be overwhelmed by the distress that it causes him. Staff indicate that he does seem to have responded to a as needed diazepam 5 mg dose given last evening. There is a history of benzodiazepine abuse, and at his age we are reluctant to use benzodiazepines. However, based on past experience with this patient, there is a risk of his becoming fully uncooperative and incorporating this into his delusional system. There is no question but that the patient does experience significant distress associated with his perceptual disturbances and his paranoid delusions. He is responding favorably to the temazepam at bedtime and does have a history of responding to benzodiazepines, as long as they are given in modest dosages and are carefully monitored. Accordingly, he was placed diazepam 5 mg twice a day standing dose starting today. 12/25 - Pt remains depressed and increasingly irritable over the course of his stay thus far. Pt is more reality-based in his perception of the benefit of diazepam, admitting it helps the anxiety he experiences as a result of the "head buzzing" but not the head buzzing itself. Pt does request that the diazepam be available as needed instead of scheduled, but also wishes to increase the dose to three times a day. As patient is reporting dizziness, the request to increase the frequency of the medication was declined at this time, but it will be adjusted to be available twice daily as needed. - Pt is refusing to titrate his dose of perphenazine any further as he does not believe that "any antipsychotic has even been effective so why take more of it." Will order 4mg prn dose of perphenazine which can be offered to the patient for auditory hallucinations, though it is not clear he would request or accept if offered. - Pt maintains that he "will commit suicide as soon as I leave the hospital", and this remains a significant concern given his history of serious overdose and frequent admissions (3) Hematuria: 12/22 -hematuria noted on UA in the ER, has had this several times in the past as well. No sign of AMOS or UTI, and ER physician recommended outpatient follow-up with PCP, Dr. Lopez. (4) Memory changes: 12/22 -patient was seen by neurology just prior to discharge at the beginning of November; noted multiple risk factors for dementia, and recommended vitamin B12 level (1371), brain MRI to identify lesions contributing to cognitive impairment, and neuropsychological testing. She also recommended avoiding benzodiazepines. A brain MRI was done on the day of discharge and was notable for mild progressive nonspecific foci of increased T2 signal within the white matter, likely on a small vessel basis, but negative for acute intracranial findings, masses, subacute or acute infarction. He is scheduled to follow-up with Dr. Caal on 02/02/2020. 12/24 -The patient has had a number of encounters with me during the past year, but is unable to recall my name. He does note that on the psychiatrist, and today he is oriented to person, place, time and situation. When I mentioned that I had not heard him complain of right temporal pain before, he replied by saying, "I have just now started calling in a pain, because no one seems to understand how awful [the voices and noises] are." 12/25 - Consider repeat MoCA, too irritable to participate today Risk Factors Assessment Male: Yes : Yes Do You Have Access To A Gun?: No Health Problems: Yes Mental Health Diagnoses: Yes Substance Use Disorders: Yes Previous Attempt: Yes Previous Attempt; Highly Lethal: Yes Family History of Suicide: Yes Previous Psychiatric Hospitalization: Yes Hopelessness: Yes Smoker: Yes Protective Factors Assessment Temple Beliefs: No : No Responsible for Young Children: No Employed: No Stable Relationships: No Supportive Family: No Good Rapport with Provider: Yes Interval History Identifying Information SCOTT ROBERTO is a 74-year-old M who currently lives in [facility], has a history of schizophrenia, and was admitted on 12/22/19 16:55 on a 201 voluntary commitment for suicidal ideation. He is on a 305 IOC, and had a conversion hearing 12/24/2019 to transition to involuntary inpatient commitment. Chief Complaint "I'm really not doing well." Review of Systems Notes Constitutional: reports fatigue Cardiovascular: denied Respiratory: denied Gastrointestinal: denied Neurological: reports ongoing "head buzzing", which he is now referring to as pain Psychiatric: denies symptoms other than stated above Total of at least 10 systems reviewed, pertinent positives as above and in HPI. Sleep Information Total Hours of Sleep: 6.5 Sleep Comments: pt on q-15 minute checks Meal Information Percent Meal Consumed - Breakfast: 100 Percent Meal Consumed - Lunch: 100 Percent Meal Consumed - Dinner: 100 Subjective Subjective Patient was seen & assessed and interval progress reviewed with nursing and social work. Pt is reported to be significantly more irritable this admission, using derogatory language toward staff last evening. Pt reportedly mentioned plan to overdose on rat poison during conversations last evening. Pt was seen today to assess progress since admission. Pt states "I'm really not doing well." He reports ongoing head buzzing and states that he has been experiencing dizziness. This provider attempted to review recent changes to his medication regimen. He states "why should I take the higher dose of the medication when no antipsychotic has ever worked for me?" He believes that the dizziness is r elated to the perphenazine and therefore is unwilling to discuss the medication any further titration. He states "the Valium is what I need." It was discussed that the Valium was introduced yesterday, and he states "I would like it prn." This provider stated she would entertain having the medication available at the patient's request, but it would continue to be available twice a day. Pt states "three times a day." This provider explained that diazepam can also contribute to dizziness and that the frequency would not be increased. Pt states that he continues to be suicidal, reporting "I will commit suicide as soon as I leave the hospital. This is miserable feeling this way. You have no idea." Pt denies any acute needs at this time. Physical Exam Psychiatric Orientation: alert, oriented to person, oriented to place and + guarded (irritable and uncooperative ) Apperance: appropriately dressed, appropriately groomed and appeared stated age Eye Contact: + fair eye contact Motor Behavior: no abnormal motor movements (observed while sitting on edge of the bed) Speech: normal rate/rhythm/volume of speech (irritable tone, brief responses to questions) Affect: + depressed affect and + constricted affect Mood: + depressed mood Thought Process: goal directed thought process and + concrete thought process Thought Content: + preoccupation (with specific medications, requesting more frequent Valium), + paranoid and + delusions Suicidal Thoughts: + reports suicidal thoughts, + reports suicidal plan and + reports suicidal intent stating "I will commit suicide as soon as I leave the hospital" Homicidal Thoughts: denies homicidal thoughts Hallucinations: + auditory hallucinations (ongoing "head buzzing", which he states he is now describing as pain) Cognition: attention grossly intact and language grossly intact Insight: + impaired insight Judgement: + impaired judgement Vital Signs (Past 24 Hours) Last Vital Signs Temp 36.8 C 12/25/19 21:07 Pulse 82 12/26/19 06:54 Resp 18 12/26/19 06:54 BP 117/67 12/26/19 06:54 Pulse Ox 97 12/22/19 17:35 Results & Data ([facility]) Current Inpatient Medications Current Inpatient Medications: Current Inpatient Medications Acetaminophen (Tylenol) 650 mg PO Q4H PRN PRN Reason: Headache or Minor Fever Stop: 01/21/20 16:53 Al Hydrox/Mg Hydrox/Simethicone (Maalox) 30 ml PO Q4H PRN PRN Reason: GI Upset Stop: 01/21/20 16:53 Aspirin (Ecotrin Ectab) 81 mg PO DAILY MAG Stop: 01/22/20 08:59 Last Admin: 12/26/19 08:22 Dose: 81 mg Documented by: Benztropine Mesylate (Cogentin) 0.5 mg PO DAILY PRN; Protocol PRN Reason: eps Stop: 01/21/20 16:57 Bismuth Subsalicylate (Kaopectate) 15 ml PO PRN PRN PRN Reason: Loose Stool Stop: 01/21/20 16:53 Diazepam (Valium) 5 mg PO BID MAG Stop: 01/24/20 10:14 Last Admin: 12/26/19 08:23 Dose: 5 mg Documented by: Docusate Sodium (Colace) 100 mg PO BID MAG Stop: 01/21/20 20:59 Last Admin: 12/26/19 08:23 Dose: 100 mg Documented by: Hydroxyzine HCl (Vistaril) 50 mg PO HSZ PRN PRN Reason: Insomnia Stop: 01/21/20 16:53 Hydroxyzine HCl (Vistaril) 25 mg PO Q4H PRN PRN Reason: Anxiety Stop: 01/21/20 16:53 Magnesium Hydroxide (Milk Of Magnesia) 30 ml PO DAILY PRN PRN Reason: Constipation Stop: 01/21/20 16:53 Melatonin (Melatonin) 3 mg PO HSZ PRN; Protocol PRN Reason: Sleep Stop: 01/22/20 11:50 Perphenazine (Trilafon) 8 mg PO 0900,1700 MAG Stop: 01/23/20 16:59 Last Admin: 12/26/19 08:22 Dose: 8 mg Documented by: Sodium Chloride (Alice Nasal) 1 - 2 sprays NA PRN PRN PRN Reason: Nasal Dryness/Congestion Stop: 01/21/20 16:53 Temazepam (Restoril) 7.5 mg PO HSZ MAG Stop: 01/21/20 21:59 Last Admin: 12/25/19 21:02 Dose: 7.5 mg Documented by: Mental Health & Subst Abuse Tx Psychiatrist Name of Psychiatrist: [facility] - Dr. Alves Psychiatrist's Psychiatric Appointment Comment: Telehealth Therapist Name of Therapist: None [employer] Name of [employer]: Shruti Mcbride Phone Number for [employer]: [phone] Post Discharge Appointments Primary Care Physician Name Of Family Doctor: [facility] - Dr. Jeff Lopez Primary Care Provider Appointment Comment: [address], [address], [place] [address] Neurologist [place] Neurologist[place] [facility] [place] Caal Neurologist's Date of Appointment with Neurologist: 02/02/20 Time of Appointment with Neurologist: 10:00 a.m. Neurology Appointment Comment: [address], [address], [place] [address] Contact Information Discharge Discharge Address: [address] [place] [address], [place], [place] [address] (1) Hematuria Hematuria type: other microscopic Qualified Code(s): R31.29 - Other microscopic hematuria (2) Schizophrenia Schizophrenia type: unspecified Qualified Code(s): F20.9 - Schizophrenia, unspecified
[2019-12-26] MEDS ORDERED: diazePAM 5 MG TABLET PO PRN (13:04)
[2019-12-26] MEDS ORDERED: PERPHENAZINE 2 MG TABLET PO PRN (13:55)
[2019-12-26] MEDS ORDERED: HALOPERIDOL LACTATE 5 MG/ML 1 ML VIAL IM PRN (16:24)
[2019-12-26] MEDS: TEMAZEPAM 7.5 MG CAPSULE PO SCH (21:09)
[2019-12-27] MEDS: DOCUSATE SODIUM 100 MG CAP PO SCH ×2 (08:22→20:54)
[2019-12-27] MEDS: ASPIRIN 81 MG ECTAB PO SCH (08:24)
[2019-12-27] MEDS: PERPHENAZINE 2 MG TABLET PO SCH ×2 (08:24→17:27)
--- NOTE | 2019-12-27 09:36 | Psychiatric Progress Note ---
Date of Service December 27, 2019 Impression / Recommendations Impression 74-year-old male with schizophrenia who lives at the [facility], is on a 305 IOC, discharged from our unit 1 month ago after a serious suicide attempt by acetaminophen overdose, who presented requesting hospitalization due to suicidal thoughts with a plan to overdose in the context of worsening auditory hallucinations, including a loud buzzing sound and command auditory hallucinations to kill himself. His psychotic symptoms have been refractory to treatment and very challenging to treat, and during his last hospitalization he was here for > 1 month and had numerous medication trials, with poor response/severe side effects to multiple antipsychotics. Multiple medications were discontinued here but then restarted shortly after discharge, and detention staff noted that his mental state worsened when they were resumed. He has had ongoing conflict with the detention staff, and although he had agreed to allow them to hold all of his medications for safety, he did not follow through on this and was keeping some of his medications in his room, and obvious safety concern given his history of abusing benzodiazepines and overdoses. He had a 306 conversion hearing and is presently admitted on a 305 involuntary inpatient admission. A meeting has been held with the CR[facility] staff, patient's case management assistant, and members of our treatment team - outpatient psychiatrist not able to attend but was invited. On admission, we resumed perphenazine and temazepam, the medication regimen he was on at the time of discharge, as he was doing well on that combination of meds. Inpatient treatment is medically necessary due to the severity of symptoms and risk for suicide if discharged. (1) Suicidal ideation: 5/6 -every 15 minute checks for safety. -Continue inpatient treatment, signed in voluntarily but as he is on a 305 IOC, we will have a 3 of 6 conversion hearing tomorrow. Patient advised and aware. -Encourage group attendance, work on healthy coping skills and discharge safety plan. 57 -SI continues in response to command auditory hallucinations and loud buzzing noise. 8 -Today the patient describes hearing human voices that command him to commit suicide. He expresses suicidal intent, that he says will become active when he leaves the hospital, but then adds that he does not have the means. He points to the fact that he tried taking an overdose of [id number] medicines and did not , and he adds, "You doctors will not give me [lethal drugs)." He adds that he has considered attempting to kill himself by taking rat poison, and perhaps an advisedly I explained to him that rat poison includes and emetic so that all that would do is make him feel very sick. 12/25 - States today "I will commit suicide as soon as I leave the hospital" (2) Schizophrenia: 12/22 -resume medication regimen he was on at the time of discharge 1 month ago, as he was doing well on that combination of medications, and per her CRR staff worsened after some of his previous medications (mirtazapine, clonidine, and alprazolam) were resumed shortly after discharge. Spoke with his outpatient psychiatrist to coordinate care regarding medications. -Continue perphenazine 4 mg every morning and 8 mg q. 1700 hrs., temazepam 7.5 mg at bedtime, melatonin 10 mg at bedtime as needed insomnia, and benztropine 0.5 mg as needed for EPS. -Offer alprazolam 0.5 mg twice daily as needed anxiety/panic. -Treatment planning meeting to include CRR staff, his outpatient case management assistant, and will invite outpatient psychiatrist as well, to be held after his commitment hearing tomorrow. He has been refusing recommendations for outpatient therapy for some time, and unaware of any other services available in the community currently, as clubhouse/psych rehab close due to pandemic. 12/23 -306 hearing held, now on a 305 involuntary commitment. We will need to transition back to [facility] at discharge. -Treatment planning meeting held -will send medications to [place] mail order pharmacy at discharge. -Patient indicates willingness to consider outpatient therapy, which is indicated but he has always refused in the past. -Patient has a history of abusing benzodiazepines, but also has significant distress due to tinnitus and chronic insomnia, for which temazepam has been helpful. Benefits includes observed ability to tolerate low-dose temazepam without significant side effects and efficacy of temazepam with failure of multiple other medications for sleep/anxiety/hallucinations. Risks include potential for abuse, intentional overdose, ongoing suicidality with recent suicide attempt by overdose. We attempted to mitigate these by coordinating a plan for CRR staff to hold all of the patient's medications and dispense them daily, so that he would not have access to large amounts of pills which would reduce the potential for abuse or intentional overdose. If he is not willing to do this, the risks likely outweigh the benefits, and benzodiazepines should be discontinued. -Ongoing auditory hallucinations as above; increase perphenazine to 8 mg twice daily. -Fasting labs for monitoring on an antipsychotic reviewed from 02/2019: Glucose 83, FLP all values within normal limits. -Discontinue alprazolam, in order to avoid polypharmacy and worsening confusion. 12/24 -The patient continues to believe, as he has fairly consistently over the years, that he is being persecuted by various entities, possibly in the form of humans, or possibly powerful computers or robots that are seeking his , either by murdering him or by convincing him to commit suicide. His response to questions such as, "why do you suppose they would want to do that" generally is quite concrete, and he responds by saying things such as "because they want me , that is why." -The patient's report today is that he responds favorably to diazepam, not because that medication stops him from hearing the "voices" in the "buzzing" or "chirping" sounds that he hears, but because it reduces his anxiety so he is less apt to be overwhelmed by the distress that it causes him. Staff indicate that he does seem to have responded to a as needed diazepam 5 mg dose given last evening. There is a history of benzodiazepine abuse, and at his age we are reluctant to use benzodiazepines. However, based on past experience with this patient, there is a risk of his becoming fully uncooperative and incorporating this into his delusional system. There is no question but that the patient does experience significant distress associated with his perceptual disturbances and his paranoid delusions. He is responding favorably to the temazepam at bedtime and does have a history of responding to benzodiazepines, as long as they are given in modest dosages and are carefully monitored. Accordingly, he was placed diazepam 5 mg twice a day standing dose starting today. 12/25 - Pt remains depressed and increasingly irritable over the course of his stay thus far. Pt is more reality-based in his perception of the benefit of diazepam, admitting it helps the anxiety he experiences as a result of the "head buzzing" but not the head buzzing itself. Pt does request that the diazepam be available as needed instead of scheduled, but also wishes to increase the dose to three times a day. As patient is reporting dizziness, the request to increase the frequency of the medication was declined at this time, but it will be adjusted to be available twice daily as needed. - Pt is refusing to titrate his dose of perphenazine any further as he does not believe that "any antipsychotic has even been effective so why take more of it." Will order 4mg prn dose of perphenazine which can be offered to the patient for auditory hallucinations, though it is not clear he would request or accept if offered. - Pt maintains that he "will commit suicide as soon as I leave the hospital", and this remains a significant concern given his history of serious overdose and frequent admissions 12/26 - Growing increasingly irritably, only engaging with this provider for a limited period of time today - Continue perphenazine 8mg BID, though patient has been refusing the medication - Diazepam held yesterday as patient was observed to be cheeking the medication - will not resume at this time as patient is not able to participate in conversation to discuss appropriate administration of medications (3) Hematuria: 12/22 -hematuria noted on UA in the ER, has had this several times in the past as well. No sign of AMOS or UTI, and ER physician recommended outpatient follow-up with PCP, Dr. Lopez. (4) Memory changes: 12/22 -patient was seen by neurology just prior to discharge at the beginning of November; noted multiple risk factors for dementia, and recommended vitamin B12 level (1371), brain MRI to identify lesions contributing to cognitive impairment, and neuropsychological testing. She also recommended avoiding benzodiazepines. A brain MRI was done on the day of discharge and was notable for mild progressive nonspecific foci of increased T2 signal within the white matter, likely on a small vessel basis, but negative for acute intracranial findings, masses, subacute or acute infarction. He is scheduled to follow-up with Dr. Caal on 02/02/2020. 12/24 -The patient has had a number of encounters with me during the past year, but is unable to recall my name. He does note that on the psychiatrist, and today he is oriented to person, place, time and situation. When I mentioned that I had not heard him complain of right temporal pain before, he replied by saying, "I have just now started calling in a pain, because no one seems to understand how awful [the voices and noises] are." 12/25 - Consider repeat MoCA, too irritable to participate today Risk Factors Assessment Male: Yes : Yes Do You Have Access To A Gun?: No Health Problems: Yes Mental Health Diagnoses: Yes Substance Use Disorders: Yes Previous Attempt: Yes Previous Attempt; Highly Lethal: Yes Family History of Suicide: Yes Previous Psychiatric Hospitalization: Yes Hopelessness: Yes Smoker: Yes Protective Factors Assessment Christian Beliefs: No : No Responsible for Young Children: No Employed: No Stable Relationships: No Supportive Family: No Good Rapport with Provider: Yes Interval History Identifying Information SCOTT ROBERTO is a 74-year-old M who currently lives in [facility], has a history of schizophrenia, and was admitted on 12/22/19 16:55 on a 201 voluntary commitment for suicidal ideation. He is on a 305 IOC, and had a conversion hearing 12/24/2019 to transition to involuntary inpatient commitment. Chief Complaint "I'm not doing very good." Review of Systems Notes Pt is rather irritable this morning, unwilling to participate in productive conversation or full review of systems Sleep Information Total Hours of Sleep: 8 Sleep Comments: pt on q-15 minute checks Meal Information Percent Meal Consumed - Breakfast: 100 Percent Meal Consumed - Lunch: 100 Percent Meal Consumed - Dinner: 100 Subjective Subjective Patient was seen & assessed and interval progress reviewed with nursing and social work. Staff report the patient was increasingly irritable as the day progressed yesterday. Diazepam was adjusted to be available twice a day as needed rather than on a scheduled basis - at patient's request. Pt requested a second dose yesterday late afternoon and was observed to be cheeking the medication. He would not swallow or spit out the medication and later refused his scheduled dose of perphenazine stating he should not be prescribed it because of his "dementia" (which is not a formal diagnosis). Pt refused perphenazine again this morning, and was informed last evening he would no longer receive diazepam as he demonstrated he is unable to take the medication appropriately. Pt was observed to be in attendance for the beginning of community meeting this morning, but then left the group session early to retreat to his room. Pt was seen today to assess progress since admission. Pt indicates "I'm not doing very good." Pt was asked the reasoning for him refusing several doses of medication last evening and this morning. He indicates "because of this." Pt handed this provider a patient education sheet on perphenazine. When asked what about the paper nneka his attention, he states "dementia." Paper was read to the patient, indicating that the recommendation is to inform your healthcare provider if you have any of these conditions and he was also reminded that he does not have a formal diagnosis of dementia. Recommendations from recent neurology consult were reviewed. Pt states "I had an MRI. I have white streaks." When patient was asked what he believed that m eant, he states "I'm not a doctor." Pt was again reminded that he does not have a diagnosis of dementia at this time and that the perphenazine is being offered to target ongoing auditory hallucinations and delusions. Pt states "I will not take it." Pt requested to speak with a doctor, and was informed this provider was the primary cupola operator recreation leader but that information could easily be passed along to this CA-C's supervising psychiatrist. Pt simply stated "then I don't want to talk anymore." Physical Exam Psychiatric Orientation: alert and + guarded (uncooperative ) Apperance: appropriately dressed and appropriately groomed Eye Contact: good eye contact (intently staring ) Motor Behavior: steady gait and station and no abnormal motor movements Speech: normal rate/rhythm/volume of speech (irritable tone) Affect: + irritable affect and + constricted affect Thought Process: + concrete thought process Suicidal Thoughts: + reports suicidal thoughts (reporting ongoing SI to staff ) Hallucinations: + auditory hallucinations (reported to staff ongoing head buzzing) Cognition: attention grossly intact and language grossly intact Insight: + impaired insight Judgement: + impaired judgement Vital Signs (Past 24 Hours) Last Vital Signs Temp 36.7 C 12/27/19 06:58 Pulse 83 12/27/19 06:58 Resp 18 12/27/19 06:58 BP 135/76 12/27/19 06:58 Pulse Ox 97 12/22/19 17:35 Results & Data ([facility]) Current Inpatient Medications Current Inpatient Medications: Current Inpatient Medications Acetaminophen (Tylenol) 650 mg PO Q4H PRN PRN Reason: Headache or Minor Fever Stop: 01/21/20 16:53 Al Hydrox/Mg Hydrox/Simethicone (Maalox) 30 ml PO Q4H PRN PRN Reason: GI Upset Stop: 01/21/20 16:53 Aspirin (Ecotrin Ectab) 81 mg PO DAILY MAG Stop: 01/22/20 08:59 Last Admin: 12/27/19 08:24 Dose: Not Given Documented by: Benztropine Mesylate (Cogentin) 0.5 mg PO DAILY PRN; Protocol PRN Reason: eps Stop: 01/21/20 16:57 Bismuth Subsalicylate (Kaopectate) 15 ml PO PRN PRN PRN Reason: Loose Stool Stop: 01/21/20 16:53 Diazepam (Valium) 5 mg PO BID PRN PRN Reason: Anxiety Stop: 01/24/20 10:14 Last Admin: 12/26/19 15:16 Dose: 5 mg Documented by: Docusate Sodium (Colace) 100 mg PO BID MAG Stop: 01/21/20 20:59 Last Admin: 12/27/19 08:22 Dose: 100 mg Documented by: Haloperidol Lactate (Haldol) 5 mg IM Q6H PRN PRN Reason: Agitation Stop: 01/25/20 16:23 Hydroxyzine HCl (Vistaril) 50 mg PO HSZ PRN PRN Reason: Insomnia Stop: 01/21/20 16:53 Hydroxyzine HCl (Vistaril) 25 mg PO Q4H PRN PRN Reason: Anxiety Stop: 01/21/20 16:53 Magnesium Hydroxide (Milk Of Magnesia) 30 ml PO DAILY PRN PRN Reason: Constipation Stop: 01/21/20 16:53 Melatonin (Melatonin) 3 mg PO HSZ PRN; Protocol PRN Reason: Sleep Stop: 01/22/20 11:50 Perphenazine (Trilafon) 8 mg PO 0900,1700 MAG Stop: 01/23/20 16:59 Last Admin: 12/27/19 08:24 Dose: Not Given Documented by: Perphenazine (Trilafon) 4 mg PO DAILY PRN PRN Reason: psychosis/AH Stop: 01/25/20 13:54 Sodium Chloride (Riva Nasal) 1 - 2 sprays NA PRN PRN PRN Reason: Nasal Dryness/Congestion Stop: 01/21/20 16:53 Temazepam (Restoril) 7.5 mg PO HSZ MAG Stop: 01/21/20 21:59 Last Admin: 12/26/19 21:09 Dose: 7.5 mg Documented by: Mental Health & Subst Abuse Tx Psychiatrist Name of Psychiatrist: [facility] - Dr. Alves Psychiatrist's Psychiatric Appointment Comment: Telehealth Therapist Name of Therapist: None Industrial Services Worker Name of Industrial Services Worker: Shruti Mcbride Phone Number for Industrial Services Worker: [phone] Post Discharge Appointments Primary Care Physician Name Of Family Doctor: [facility] - Dr. Jeff Lopez Primary Care Provider Appointment Comment: [address] [facility], [address], [place] [address] Neurologist Name of Neurologist: [facility] - Dr. Caal Neurologist's Date of Appointment with Neurologist: 02/02/20 Time of Appointment with Neurologist: 10:00 a.m. Neurology Appointment Comment: [address], [address], [place] [address] Contact Information Discharge Discharge Address: [address] [place] [address], [place] [address] (1) Hematuria Hematuria type: other microscopic Qualified Code(s): R31.29 - Other microscopic hematuria (2) Schizophrenia Schizophrenia type: unspecified Qualified Code(s): F20.9 - Schizophrenia, unspecified
[2019-12-27] MEDS: TEMAZEPAM 7.5 MG CAPSULE PO SCH (20:54)
[2019-12-28] MEDS: ASPIRIN 81 MG ECTAB PO SCH (08:16)
[2019-12-28] MEDS: DOCUSATE SODIUM 100 MG CAP PO SCH ×2 (08:16→21:03)
[2019-12-28] MEDS: PERPHENAZINE 2 MG TABLET PO SCH ×2 (08:17→17:46)
--- NOTE | 2019-12-28 09:33 | Psychiatric Progress Note ---
Date of Service December 28, 2019 Impression / Recommendations Impression 74-year-old male with schizophrenia who lives at the [facility], is on a 305 IOC, discharged from our unit 1 month ago after a serious suicide attempt by acetaminophen overdose, who presented requesting hospitalization due to suicidal thoughts with a plan to overdose in the context of worsening auditory hallucinations, including a loud buzzing sound and command auditory hallucinations to kill himself. His psychotic symptoms have been refractory to treatment and very challenging to treat, and during his last hospitalization he was here for > 1 month and had numerous medication trials, with poor response/severe side effects to multiple antipsychotics. Multiple medications were discontinued here but then restarted shortly after discharge, and intermediate staff noted that his mental state worsened when they were resumed. He has had ongoing conflict with the intermediate staff, and although he had agreed to allow them to hold all of his medications for safety, he did not follow through on this and was keeping some of his medications in his room, and obvious safety concern given his history of abusing benzodiazepines and overdoses. He had a 306 conversion hearing and is presently admitted on a 305 involuntary inpatient admission. A meeting has been held with the CRR staff, patient's porter sample case, and members of our treatment team - outpatient psychiatrist not able to attend but was invited. On admission, we resumed perphenazine and temazepam, the medication regimen he was on at the time of discharge, as he was doing well on that combination of meds. Diazepam was added as patient reports it is helpful for his anxiety; however, he was presumed to be cheeking the medication and it was discontinued. Pt is now refusing perphenazine and is uncooperative with interactions with staff and providers. Inpatient treatment is medically necessary due to the severity of symptoms and risk for suicide if discharged. (1) Suicidal ideation: 5/6 -every 15 minute checks for safety. -Continue inpatient treatment, signed in voluntarily but as he is on a 305 IOC, we will have a 3 of 6 conversion hearing tomorrow. Patient advised and aware. -Encourage group attendance, work on healthy coping skills and discharge safety plan. 57 -SI continues in response to command auditory hallucinations and loud buzzing noise. 8 -Today the patient describes hearing human voices that command him to commit suicide. He expresses suicidal intent, that he says will become active when he leaves the hospital, but then adds that he does not have the means. He points to the fact that he tried taking an overdose of [id number]-[id number] medicines and did not , and he adds, "You doctors will not give me [lethal drugs)." He adds that he has considered attempting to kill himself by taking rat poison, and perhaps an advisedly I explained to him that rat poison includes and emetic so that all that would do is make him feel very sick. 12/25 - States today "I will commit suicide as soon as I leave the hospital" 12/26 - 12/27 - Remains suicidal, unwilling to participate in safety planning conversations (2) Schizophrenia: 12/22 -resume medication regimen he was on at the time of discharge 1 month ago, as he was doing well on that combination of medications, and per her CRR staff worsened after some of his previous medications (mirtazapine, clonidine, and alprazolam) were resumed shortly after discharge. Spoke with his outpatient psychiatrist to coordinate care regarding medications. -Continue perphenazine 4 mg every morning and 8 mg q. 1700 hrs., temazepam 7.5 mg at bedtime, melatonin 10 mg at bedtime as needed insomnia, and benztropine 0.5 mg as needed for EPS. -Offer alprazolam 0.5 mg twice daily as needed anxiety/panic. -Treatment planning meeting to include CRR staff, his outpatient porter sample case, and will invite outpatient psychiatrist as well, to be held after his commitment hearing tomorrow. He has been refusing recommendations for outpatient therapy for some time, and unaware of any other services available in the community currently, as clubhouse/psych rehab close due to pandemic. 12/23 -306 hearing held, now on a 305 involuntary commitment. We will need to transition back to [facility] at discharge. -Treatment planning meeting held -will send medications to [facility] order [facility] at discharge. -Patient indicates willingness to consider outpatient therapy, which is indicated but he has always refused in the past. -Patient has a history of abusing benzodiazepines, but also has significant distress due to tinnitus and chronic insomnia, for which temazepam has been helpful. Benefits includes observed ability to tolerate low-dose temazepam without significant side effects and efficacy of temazepam with failure of multiple other medications for sleep/anxiety/hallucinations. Risks include potential for abuse, intentional overdose, ongoing suicidality with recent suicide attempt by overdose. We attempted to mitigate these by coordinating a plan for CRR staff to hold all of the patient's medications and dispense them daily, so that he would not have access to large amounts of pills which would reduce the potential for abuse or intentional overdose. If he is not willing to do this, the risks likely outweigh the benefits, and benzodiazepines should be discontinued. -Ongoing auditory hallucinations as above; increase perphenazine to 8 mg twice daily. -Fasting labs for monitoring on an antipsychotic reviewed from 02/2019: Glucose 83, FLP all values within normal limits. -Discontinue alprazolam, in order to avoid polypharmacy and worsening confusion. 12/24 -The patient continues to believe, as he has fairly consistently over the years, that he is being persecuted by various entities, possibly in the form of humans, or possibly powerful computers or robots that are seeking his , either by murdering him or by convincing him to commit suicide. His response to questions such as, "why do you suppose they would want to do that" generally is quite concrete, and he responds by saying things such as "because they want me , that is why." -The patient's report today is that he responds favorably to diazepam, not because that medication stops him from hearing the "voices" in the "buzzing" or "chirping" sounds that he hears, but because it reduces his anxiety so he is less apt to be overwhelmed by the distress that it causes him. Staff indicate that he does seem to have responded to a as needed diazepam 5 mg dose given last evening. There is a history of benzodiazepine abuse, and at his age we are reluctant to use benzodiazepines. However, based on past experience with this patient, there is a risk of his becoming fully uncooperative and incorporating this into his delusional system. There is no question but that the patient does experience significant distress associated with his perceptual disturbances and his paranoid delusions. He is responding favorably to the temazepam at bedtime and does have a history of responding to benzodiazepines, as long as they are given in modest dosages and are carefully monitored. Accordingly, he was placed diazepam 5 mg twice a day standing dose starting today. 12/25 - Pt remains depressed and increasingly irritable over the course of his stay thus far. Pt is more reality-based in his perception of the benefit of d iazepam, admitting it helps the anxiety he experiences as a result of the "head buzzing" but not the head buzzing itself. Pt does request that the diazepam be available as needed instead of scheduled, but also wishes to increase the dose to three times a day. As patient is reporting dizziness, the request to increase the frequency of the medication was declined at this time, but it will be adjusted to be available twice daily as needed. - Pt is refusing to titrate his dose of perphenazine any further as he does not believe that "any antipsychotic has even been effective so why take more of it." Will order 4mg prn dose of perphenazine which can be offered to the patient for auditory hallucinations, though it is not clear he would request or accept if offered. - Pt maintains that he "will commit suicide as soon as I leave the hospital", and this remains a significant concern given his history of serious overdose and frequent admissions 12/26 - Growing increasingly irritable, only engaging with this provider for a limited period of time today - Continue perphenazine 8mg BID, though patient has been refusing the medication - Diazepam held yesterday as patient was observed to be cheeking the medication - will not resume at this time as patient is not able to participate in conversation to discuss appropriate administration of medications 12/27 - Pt remains irritable, with limited participation in interview - Pt continues to refuse to take perphenazine as he states it is contraindicated in dementia (pt reminded that this is not a formal diagnosis, and that multiple providers are recommending the medication) - Evaluate if patient may meet criteria for medications over objection if his medication refusal continues, as it is not reasonable to assume his symptoms will improve without pharmacological interventions. - Requesting only diazepam, but remains unable to engage in conversation regarding how he can reliably take this medication appropriately (3) Hematuria: 12/22 -hematuria noted on UA in the ER, has had this several times in the past as well. No sign of AMOS or UTI, and ER physician recommended outpatient follow-up with PCP, Dr. Lopez. (4) Memory changes: 12/22 -patient was seen by neurology just prior to discharge at the beginning of November; noted multiple risk factors for dementia, and recommended vitamin B12 level (1371), brain MRI to identify lesions contributing to cognitive impairment, and neuropsychological testing. She also recommended avoiding benzodiazepines. A brain MRI was done on the day of discharge and was notable for mild progressive nonspecific foci of increased T2 signal within the white matter, likely on a small vessel basis, but negative for acute intracranial findings, masses, subacute or acute infarction. He is scheduled to follow-up with Dr. Caal on 02/02/2020. 12/24 -The patient has had a number of encounters with me during the past year, but is unable to recall my name. He does note that on the psychiatrist, and today he is oriented to person, place, time and situation. When I mentioned that I had not heard him complain of right temporal pain before, he replied by saying, "I have just now started calling in a pain, because no one seems to understand how awful [the voices and noises] are." 12/25 -12/27 - Consider repeat MoCA, too irritable to participate Risk Factors Assessment Male: Yes : Yes Do You Have Access To A Gun?: No Health Problems: Yes Mental Health Diagnoses: Yes Substance Use Disorders: Yes Previous Attempt: Yes Previous Attempt; Highly Lethal: Yes Family History of Suicide: Yes Previous Psychiatric Hospitalization: Yes Hopelessness: Yes Smoker: Yes Protective Factors Assessment Cheondoism Beliefs: No : No Responsible for Young Children: No Employed: No Stable Relationships: No Supportive Family: No Good Rapport with Provider: Yes Interval History Identifying Information SCOTT ROBERTO is a 74-year-old M who currently lives in [facility], has a history of schizophrenia, and was admitted on 12/22/19 16:55 on a 201 voluntary commitment for suicidal ideation. He is on a 305 IOC, and had a conversion he ari 12/24/2019 to transition to involuntary inpatient commitment. Chief Complaint "Not good." Review of Systems Notes Conversation limited by patient's level of irritability. Reports ongoing "pain" (previously reported as "head buzzing"), but otherwise does not report any p hysical complaints at this time. Sleep Information Total Hours of Sleep: 8 Sleep Comments: pt appeared to sleep one hr during evening shift. pt on q-15 minute checks Meal Information Percent Meal Consumed - Breakfast: 100 Percent Meal Consumed - Lunch: 100 Percent Meal Consumed - Dinner: 100 Subjective Subjective Patient was seen & assessed and interval progress reviewed with treatment team. Staff report the patient remains very irritable. He attends groups briefly, but often leaves quickly to retreat back to his room. He has been refusing pe rphenazine. He remains preoccupied with receiving diazepam. Pt was seen today to assess progress since admission. Pt states he is "not good", also reporting that yesterday was "not good." When asked what patient felt contributed to these emotions yesterday, he did not respond. This provider offered options: head buzzing/pain, suicidality, poor mood. Pt responds only by saying "that." Pt was asked about his ongoing refusal of perphenazine, stating "it is contraindicated in dementia." Pt was again informed that he does not have a formal diagnosis of dementia and that it is recommended that he take a medication to assist with the "head buzzing" and auditory hallucinations. Pt states "I want Valium." We reviewed the reason the diazepam was held, which was that he was presumed to be cheeking the medication and was not forthcoming with staff about his intentions when questioned about the action. Pt was informed that the medication would continue to be held until he was able to demonstrate ability to responsibly take the medication. Pt was again reminded that medication recommendations include an antipsychotic medication, which he continues to refuse to take. Pt was encouraged to consider engaging in a conversation with providers about appropriate medications, but is unwilling to do so at this time. When told that he previously reported the perphenazine was helpful, he states "I never said that." This provider informed him that there is documentation from his last hospitalization that the medication helped to reduce the "head buzzing" and allowed him to work toward stability for discharge. His only response was "that's a lie." Pt then refused to speak to this provider, not answering any follow-up questions. He did not answer if there was anything he needed or anything that could be brought to him. Interactions was ended at that point. Physical Exam Psychiatric Orientation: alert, oriented to person and oriented to place; + uncooperative (willingness to participate in interview is limited by level of irritability) Apperance: appropriately dressed and appropriately groomed Eye Contact: + fair eye contact (avoiding direct eye contact for most of encounter) Motor Behavior: no abnormal motor movements (observed while laying in bed) Speech: normal rate/rhythm/volume of speech (only brief responses to questions, irritable tone) Affect: + angry affect Mood: + depressed mood Thought Process: + perseveration and + concrete thought process Thought Content: + preoccupation (with receiving Valium) and + delusions Suicidal Thoughts: + reports suicidal thoughts and + reports suicidal intent Remains at very high risk of suicide if discharged Homicidal Thoughts: denies homicidal thoughts Hallucinations: + auditory hallucinations (reported as "pain" and "head buzzing") Cognition: attention grossly intact and language grossly intact Estimated Intelligence: consistent with education level Insight: + severely impaired insight Judgement: + severely impaired judgement Vital Signs (Past 24 Hours) Last Vital Signs Temp 36.6 C 12/28/19 06:50 Pulse 82 12/28/19 06:51 Resp 18 12/28/19 06:50 BP 137/83 12/28/19 06:51 Pulse Ox 97 12/22/19 17:35 Results & Data ([facility]) Current Inpatient Medications Current Inpatient Medications: Current Inpatient Medications Acetaminophen (Tylenol) 650 mg PO Q4H PRN PRN Reason: Headache or Minor Fever Stop: 01/21/20 16:53 Al Hydrox/Mg Hydrox/Simethicone (Maalox) 30 ml PO Q4H PRN PRN Reason: GI Upset Stop: 01/21/20 16:53 Aspirin (Ecotrin Ectab) 81 mg PO DAILY [facility] Stop: 01/22/20 08:59 Last Admin: 12/28/19 08:16 Dose: 81 mg Documented by: Benztropine Mesylate (Cogentin) 0.5 mg PO DAILY PRN; Protocol PRN Reason: eps Stop: 01/21/20 16:57 Bismuth Subsalicylate (Kaopectate) 15 ml PO PRN PRN PRN Reason: Loose Stool Stop: 01/21/20 16:53 Diazepam (Valium) 5 mg PO BID PRN PRN Reason: Anxiety Stop: 01/24/20 10:14 Last Admin: 12/26/19 15:16 Dose: 5 mg Documented by: Docusate Sodium (Colace) 100 mg PO BID [facility] Stop: 01/21/20 20:59 Last Admin: 12/28/19 08:16 Dose: 100 mg Documented by: Haloperidol Lactate (Haldol) 5 mg IM Q6H PRN PRN Reason: Agitation Stop: 01/25/20 16:23 Hydroxyzine HCl (Vistaril) 50 mg PO HSZ PRN PRN Reason: Insomnia Stop: 01/21/20 16:53 Hydroxyzine HCl (Vistaril) 25 mg PO Q4H PRN PRN Reason: Anxiety Stop: 01/21/20 16:53 Magnesium Hydroxide (Milk Of Magnesia) 30 ml PO DAILY PRN PRN Reason: Constipation Stop: 01/21/20 16:53 Melatonin (Melatonin) 3 mg PO HSZ PRN; Protocol PRN Reason: Sleep Stop: 01/22/20 11:50 Perphenazine (Trilafon) 8 mg PO 0900,1700 MAG Stop: 01/23/20 16:59 Last Admin: 12/28/19 08:17 Dose: Not Given Documented by: Perphenazine (Trilafon) 4 mg PO DAILY PRN PRN Reason: psychosis/AH Stop: 01/25/20 13:54 Sodium Chloride (Pierce Nasal) 1 - 2 sprays NA PRN PRN PRN Reason: Nasal Dryness/Congestion Stop: 01/21/20 16:53 Temazepam (Restoril) 7.5 mg PO HSZ MAG Stop: 01/21/20 21:59 Last Admin: 12/27/19 20:54 Dose: 7.5 mg Documented by: Mental Health & Subst Abuse Tx Psychiatrist Name of Psychiatrist: [facility] - Dr. Alves Psychiatrist's Psychiatric Appointment Comment: Telehealth Therapist Name of Therapist: None Analysis Or Research Safety Inspector Name of Analysis Or Research Safety Inspector: Shruti Mcbride Phone Number for Analysis Or Research Safety Inspector: [phone] Post Discharge Appointments Primary Care Physician Name Of Family Doctor: [facility] - Dr. Jeff Lopez Primary Care Provider Appointment Comment: [address], [address], [place] [address] Neurologist Name of Neurologist: [facility] - Dr. Caal Neurologist's Date of Appointment with Neurologist: 02/02/20 Time of Appointment with Neurologist: 10:00 a.m. Neurology Appointment Comment: [address], [address], [place] [address] Contact Information Discharge Discharge Address: [address] [place] [id number] (1) Hematuria Hematuria type: other microscopic Qualified Code(s): R31.29 - Other microscopic hematuria (2) Schizophrenia Schizophrenia type: unspecified Qualified Code(s): F20.9 - Schizophrenia, unspecified
[2019-12-28] MEDS: TEMAZEPAM 7.5 MG CAPSULE PO SCH (21:02)
[2019-12-29] MEDS: PERPHENAZINE 2 MG TABLET PO SCH ×3 (08:32→17:13)
[2019-12-29] MEDS: ASPIRIN 81 MG ECTAB PO SCH ×2 (08:32→08:36)
[2019-12-29] MEDS: DOCUSATE SODIUM 100 MG CAP PO SCH ×3 (08:32→20:34)
--- NOTE | 2019-12-29 08:39 | Psychiatric Progress Note ---
Date of Service December 29, 2019 Impression / Recommendations Impression 74-year-old male with schizophrenia who lives at the [facility], is on a 305 IOC, discharged from our unit 1 month ago after a serious suicide attempt by acetaminophen overdose, who presented requesting hospitalization due to suicidal thoughts with a plan to overdose in the context of worsening auditory hallucinations, including a loud buzzing sound and command auditory hallucinations to kill himself. His psychotic symptoms have been refractory to treatment and very challenging to treat, and during his last hospitalization he was here for > 1 month and had numerous medication trials, with poor response/severe side effects to multiple antipsychotics. Multiple medications were discontinued here but then restarted shortly after discharge, and prison staff noted that his mental state worsened when they were resumed. He has had ongoing conflict with the prison staff, and although he had agreed to allow them to hold all of his medications for safety, he did not follow through on this and was keeping some of his medications in his room, and obvious safety concern given his history of abusing benzodiazepines and overdoses. He had a 306 conversion hearing and is now on a 305 involuntary inpatient admission. A meeting has been held with the CRR staff, patient's correctional case manager, and members of our treatment team. On admission, we resumed perphenazine and temazepam, the medication regimen he was on at the time of discharge, as he was doing well on that combination of meds, but he is now unfortunately refusing the antipsychotic. Diazepam was added as patient reports it is helpful for his anxiety; but stopped after he refused to swallow the pills and appeared to be cheeking the medication. He is unwilling to accept oral antipsychotics, and we will likely have to get an order for medications over objection. Inpatient treatment is medically necessary due to the severity of symptoms and risk for suicide if discharged. (1) Suicidal ideation: 5/6 -every 15 minute checks for safety. -Continue inpatient treatment, signed in voluntarily but as he is on a 305 IOC, we will have a 3 of 6 conversion hearing tomorrow. Patient advised and aware. -Encourage group attendance, work on healthy coping skills and discharge safety plan. 5/7 -SI continues in response to command auditory hallucinations and loud buzzing noise. 58 -Today the patient describes hearing human voices that command him to commit suicide. He expresses suicidal intent, that he says will become active when he leaves the hospital, but then adds that he does not have the means. He points to the fact that he tried taking an overdose of [id number] medicines and did not , and he adds, "You doctors will not give me [lethal drugs)." He adds that he has considered attempting to kill himself by taking rat poison, and perhaps an advisedly I explained to him that rat poison includes and emetic so that all that would do is make him feel very sick. 12/25 - States today "I will commit suicide as soon as I leave the hospital." 12/26 - 12/27 - Remains suicidal, unwilling to participate in safety planning conversations (2) Schizophrenia: 12/22 -resume medication regimen he was on at the time of discharge 1 month ago, as he was doing well on that combination of medications, and per her CRR staff worsened after some of his previous medications (mirtazapine, clonidine, and alprazolam) were resumed shortly after discharge. Spoke with his outpatient psychiatrist to coordinate care regarding medications. -Continue perphenazine 4 mg every morning and 8 mg q. 1700 hrs., temazepam 7.5 mg at bedtime, melatonin 10 mg at bedtime as needed insomnia, and benztropine 0.5 mg as needed for EPS. -Offer alprazolam 0.5 mg twice daily as needed anxiety/panic. -Treatment planning meeting to include CRR staff, his outpatient correctional case manager, and will invite outpatient psychiatrist as well, to be held after his commitment hearing tomorrow. He has been refusing recommendations for outpatient therapy for some time, and unaware of any other services available in the community currently, as clubhouse/psych rehab close due to pandemic. 12/23 -306 hearing held, now on a 305 involuntary commitment. We will need to transition back to [facility] at discharge. -Treatment planning meeting held -will send medications to [facility] at discharge. -Patient indicates willingness to consider outpatient therapy, which is indicated but he has always refused in the past. -Patient has a history of abusing benzodiazepines, but also has significant distress due to tinnitus and chronic insomnia, for which temazepam has been helpful. Benefits includes observed ability to tolerate low-dose temazepam without significant side effects and efficacy of temazepam with failure of multiple other medications for sleep/anxiety/hallucinations. Risks include potential for abuse, intentional overdose, ongoing suicidality with recent suicide attempt by overdose. We attempted to mitigate these by coordinating a plan for CRR staff to hold all of the patient's medications and dispense them daily, so that he would not have access to large amounts of pills which would reduce the potential for abuse or intentional overdose. If he is not willing to do this, the risks likely outweigh the benefits, and benzodiazepines should be discontinued. -Ongoing auditory hallucinations as above; increase perphenazine to 8 mg twice daily. -Fasting labs for monitoring on an antipsychotic reviewed from 02/2019: Glucose 83, FLP all values within normal limits. -Discontinue alprazolam, in order to avoid polypharmacy and worsening confusion. 12/24 -The patient continues to believe, as he has fairly consistently over the years, that he is being persecuted by various entities, possibly in the form of humans, or possibly powerful computers or robots that are seeking his , either by murdering him or by convincing him to commit suicide. His response to questions such as, "why do you suppose they would want to do that" generally is quite concrete, and he responds by saying things such as "because they want me , that is why." -The patient's report today is that he responds favorably to diazepam, not because that medication stops him from hearing the "voices" in the "buzzing" or "chirping" sounds that he hears, but because it reduces his anxiety so he is less apt to be overwhelmed by the distress that it causes him. Staff indicate that he does seem to have responded to a as needed diazepam 5 mg dose given last evening. There is a history of benzodiazepine abuse, and at his age we are reluctant to use benzodiazepines. However, based on past experience with this patient, there is a risk of his becoming fully uncooperative and incorporating this into his delusional system. There is no question but that the patient does experience significant distress associated with his perceptual disturbances and his paranoid delusions. He is responding favorably to the temazepam at bedtime and does have a history of responding to benzodiazepines, as long as they are given in modest dosages and are carefully monitored. Accordingly, he was placed diazepam 5 mg twice a day standing dose starting today. 12/25 - Pt remains depressed and increasingly irritable over the course of his stay thus far. Pt is more reality-based in his perception of the benefit of diazepam, admitting it helps the anxiety he experiences as a result of the "head buzzing" but not the head buzzing itself. Pt does request that the diazepam be available as needed instead of scheduled, but also wishes to increase the dose to three times a day. As patient is reporting dizziness, the request to increase the frequency of the medication was declined at this time, but it will be adjusted to be available twice daily as needed. - Pt is refusing to titrate his dose of perphenazine any further as he does not believe that "any antipsychotic has even been effective so why take more of it." Will order 4mg prn dose of perphenazine which can be offered to the patient for auditory hallucinations, though it is not clear he would request or accept if offered. - Pt maintains that he "will commit suicide as soon as I leave the hospital", and this remains a significant concern given his history of serious overdose and frequent admissions 12/26 - Growing increasingly irritable, only engaging with this provider for a limited period of time today - Continue perphenazine 8mg BID, though patient has been refusing the medication - Diazepam held yesterday as patient was observed to be cheeking the medication - will not resume at this time as patient is not able to participate in conversation to discuss appropriate administration of medications 12/27 - Pt remains irritable, with limited participation in interview - Pt continues to refuse to take perphenazine as he states it is contraindicated in dementia (pt reminded that this is not a formal diagnosis, and that multiple providers are recommending the medication) - Evaluate if patient may meet criteria for medications over objection if his medication refusal continues, as it is not reasonable to assume his symptoms will improve without pharmacological interventions. - Requesting only diazepam, but remains unable to engage in conversation regarding how he can reliably take this medication appropriately 12/28 -Patient remains unwilling to take perphenazine or engage in discussion of other antipsychotic options. He has had multiple failed trials and fairly severe side effects to previous antipsychotics, and additionally has poor insight into his illness, which complicates treatment. During his last hospitalization, he had a trial of ziprasidone which was ineffective, and clozapine caused altered m ental status and EPS. He ultimately tolerated perphenazine and was discharged on that medication, but is now refusing to take it. Ideally, he would be on a long-acting injectable antipsychotic, but as he is not even been willing to take oral antipsychotics, this limits his options (as there are no immediate release injectable formulations of paliperidone, risperidone, or aripiprazole). I believe he will require medications over objection if he remains unwilling to take an antipsychotic, likely starting with IM haloperidol, as it has p.o., IM, and FARAH options. -Patient does report some relief with diazepam, and at this time I believe the benefits outweigh the risks. It is obviously not a good longer term medication for him given his history of benzodiazepine abuse as well as age and cognitive impairment, but it is the only medication that gives him relief from his current symptoms and that he is willing to take, so my hope is that if we can reduce his anxiety and distress level to some degree, he will be willing to take an antipsychotic medication to target his schizophrenic symptoms. He is agreeing to take the medication dissolved in water, which decreases the risk of cheeking. We will resume 5 mg twice daily. (3) Hematuria: 12/22 -hematuria noted on UA in the ER, has had this several times in the past as well. No sign of AMOS or UTI, and ER physician recommended outpatient follow-up with PCP, Dr. Lopez. (4) Memory changes: 12/22 -patient was seen by neurology just prior to discharge at the beginning of November; noted multiple risk factors for dementia, and recommended vitamin B12 level (1371), brain MRI to identify lesions contributing to cognitive impairment, and neuropsychological testing. She also recommended avoiding benzodiazepines. A brain MRI was done on the day of discharge and was notable for mild progressive nonspecific foci of increased T2 signal within the white matter, likely on a small vessel basis, but negative for acute intracranial findings, masses, subacute or acute infarction. He is scheduled to follow-up with Dr. Caal on 02/02/2020. 12/24 -The patient has had a number of encounters with me during the past year, but is unable to recall my name. He does note that on the psychiatrist, and today he is oriented to person, place, time and situation. When I mentioned that I had not heard him complain of right temporal pain before, he replied by saying, "I have just now started calling in a pain, because no one seems to understand how awful [the voices and noises] are." 12/25 -12/27 - Consider repeat MoCA, too irritable to participate Risk Factors Assessment Male: Yes : Yes Do You Have Access To A Gun?: No Health Problems: Yes Mental Health Diagnoses: Yes Substance Use Disorders: Yes Previous Attempt: Yes Previous Attempt; Highly Lethal: Yes Family History of Suicide: Yes Previous Psychiatric Hospitalization: Yes Hopelessness: Yes Smoker: Yes Protective Factors Assessment Hoahaoism Beliefs: No : No Responsible for Young Children: No Employed: No Stable Relationships: No Supportive Family: No Good Rapport with Provider: Yes Interval History Identifying Information SCOTT ROBERTO is a 74-year-old M who currently lives in [facility], has a history of schizophrenia, and was admitted on 12/22/19 16:55 on a 201 voluntary commitment for suicidal ideation. He is on a 305 IOC, and had a conversion hearing 12/24/2019 to transition to involuntary inpatient commitment. Chief Complaint " Not good, look at this". Review of Systems Sleep Information Total Hours of Sleep: 8.25 Meal Information Percent Meal Consumed - Breakfast: 100 Percent Meal Consumed - Lunch: 100 Percent Meal Consumed - Dinner: 100 Subjective Subjective Patient was seen & assessed and interval progress reviewed with nursing and social work. Staff report he continues to refuse Trilafon, stating he only wants Valium. He described his mood as "pain" and was irritable and poorly engaged in treatment. He went to some groups but didn't stay for the whole thing, and isolated in his room. On my assessment, he was seen in his room, where he is reclining on his, looking out the window. He reports poor mood, stating he will not take Trilafon because he believes he has dementia, and shows me a an informational printout about the medication with a list of conditions for which it may be problematic. He says he believes he has dementia because "I'm getting a test by Dr. Pizarro, I have forgetfulness." He is unable to engage in a discussion of the risks and benefits of medication, or the subtleties of differentiating cognitive dysfunction due to chronic schizophrenia from swathi ia. He maintains that no antipsychotic medication has ever helped him, and that he will not take these medications. He states the only medication that he wants is Valium, which gave him some relief from "the anxiety from the pain." He describes ongoing auditory hallucinations which are "terrible, I need Valium to get rid of the anxiety, it works, I can't get rid of the pain, but I can get rid of the anxiety with the pain." He is hearing a loud chirping sound as well as voices telling him to kill himself, which are quite distressing. He states mood is "I feel fine," but endorses ongoing suicidal thoughts. He is unwilling to agree to swallow the Valium whole, stating he likes to let it dissolve under his tongue "because it works faster." When asked to engage in a discussion about how we can ensure that he is not saving up the medication with intent to overdose, he states that he would be willing to take the medication dissolved in water. Summary of Past History Reviewed outpatient records from Dr. Alves: One progress note reviewed, signed 12/21/2019 but date of visit unclear. Patient reported lessening of psychotic symptoms, but ongoing, intermittent hallucinations. His speech was more organized, and he reported ongoing anxiety and insomnia. He was prescribed clonidine 0.1 mg at bedtime, temazepam 7.5 mg at bedtime, mirtazapine 15 mg at bedtime, perphenazine 4 mg every morning and 8 mg at bedtime, and melatonin and alprazolam were discontinued. Physical Exam Psychiatric Orientation: alert and cooperative Apperance: appropriately dressed, appropriately groomed and appeared stated age Eye Contact: + fair eye contact Motor Behavior: steady gait and station and no abnormal motor movements Minimal speech, irritable tone. Affect: + depressed affect, + irritable affect and + constricted affect; + mood not congruent with affect "I'm fine." Thought Process: + perseveration (On wanting Valium) and + concrete thought process Thought Content: + preoccupation, + paranoid, + delusions, + persecution and + hopelessness Suicidal Thoughts: + reports suicidal thoughts Homicidal Thoughts: denies homicidal thoughts Hallucinations: + auditory hallucinations Cognition: attention grossly intact and language grossly intact Insight: + impaired insight Judgement: + impaired judgement Vital Signs (Past 24 Hours) Last Vital Signs Temp 36.7 C 12/29/19 06:57 Pulse 84 12/29/19 06:58 Resp 18 12/29/19 06:57 BP 134/81 12/29/19 06:58 Pulse Ox 97 12/22/19 17:35 Results & Data ([facility]) Current Inpatient Medications Current Inpatient Medications: Current Inpatient Medications Acetaminophen (Tylenol) 650 mg PO Q4H PRN PRN Reason: Headache or Minor Fever Stop: 01/21/20 16:53 Al Hydrox/Mg Hydrox/Simethicone (Maalox) 30 ml PO Q4H PRN PRN Reason: GI Upset Stop: 01/21/20 16:53 Aspirin (Ecotrin Ectab) 81 mg PO DAILY MAG Stop: 01/22/20 08:59 Last Admin: 12/29/19 08:36 Dose: Not Given Documented by: Benztropine Mesylate (Cogentin) 0.5 mg PO DAILY PRN; Protocol PRN Reason: eps Stop: 01/21/20 16:57 Bismuth Subsalicylate (Kaopectate) 15 ml PO PRN PRN PRN Reason: Loose Stool Stop: 01/21/20 16:53 Diazepam (Valium) 5 mg PO BID PRN PRN Reason: Anxiety Stop: 01/24/20 10:14 Last Admin: 12/26/19 15:16 Dose: 5 mg Documented by: Docusate Sodium (Colace) 100 mg PO BID MAG Stop: 01/21/20 20:59 Last Admin: 12/29/19 08:36 Dose: Not Given Documented by: Haloperidol Lactate (Haldol) 5 mg IM Q6H PRN PRN Reason: Agitation Stop: 01/25/20 16:23 Hydroxyzine HCl (Vistaril) 50 mg PO HSZ PRN PRN Reason: Insomnia Stop: 01/21/20 16:53 Hydroxyzine HCl (Vistaril) 25 mg PO Q4H PRN PRN Reason: Anxiety Stop: 01/21/20 16:53 Magnesium Hydroxide (Milk Of Magnesia) 30 ml PO DAILY PRN PRN Reason: Constipation Stop: 01/21/20 16:53 Melatonin (Melatonin) 3 mg PO HSZ PRN; Protocol PRN Reason: Sleep Stop: 01/22/20 11:50 Perphenazine (Trilafon) 8 mg PO 0900,1700 MAG Stop: 01/23/20 16:59 Last Admin: 12/29/19 08:36 Dose: Not Given Documented by: Perphenazine (Trilafon) 4 mg PO DAILY PRN PRN Reason: psychosis/AH Stop: 01/25/20 13:54 Sodium Chloride (Cabell Nasal) 1 - 2 sprays NA PRN PRN PRN Reason: Nasal Dryness/Congestion Stop: 01/21/20 16:53 Temazepam (Restoril) 7.5 mg PO HSZ MAG Stop: 01/21/20 21:59 Last Admin: 12/28/19 21:02 Dose: 7.5 mg Documented by: Mental Health & Subst Abuse Tx Psychiatrist Name of Psychiatrist: [facility] - Dr. Alves Psychiatrist's Psychiatric Appointment Comment: Telehealth Therapist Name of Therapist: None Acid Maker Name of Acid Maker: Shruti Mcbride Phone Number for Acid Maker: [phone] Post Discharge Appointments Primary Care Physician Name Of Family Doctor: [facility] - Dr. Jeff Lopez Primary Care Provider Appointment Comment: [address], [address], [place] [address] Neurologist Name of Neurologist: GRAZYNA Caal Neurologist's Date of Appointment with Neurologist: 02/02/20 Time of Appointment with Neurologist: 10:00 a.m. Neurology Appointment Comment: [address], [address], [place] [address] Contact Information Discharge Discharge Address: [address] [place] [address] (1) Hematuria Hematuria type: other microscopic Qualified Code(s): R31.29 - Other microscopic hematuria (2) Schizophrenia Schizophrenia type: unspecified Qualified Code(s): F20.9 - Schizophrenia, unspecified
[2019-12-29] MEDS: diazePAM 5 MG TABLET PO SCH ×2 (11:05→20:34)
[2019-12-29] MEDS: TEMAZEPAM 7.5 MG CAPSULE PO SCH (20:34)
[2019-12-30] MEDS: ASPIRIN 81 MG ECTAB PO SCH (08:23)
[2019-12-30] MEDS: DOCUSATE SODIUM 100 MG CAP PO SCH ×2 (08:23→21:00)
[2019-12-30] MEDS: PERPHENAZINE 2 MG TABLET PO SCH (08:23)
[2019-12-30] MEDS: diazePAM 5 MG TABLET PO SCH ×2 (08:31→21:00)
--- NOTE | 2019-12-30 10:34 | Psychiatric Progress Note ---
Date of Service December 30, 2019 Impression / Recommendations Impression 74-year-old male with schizophrenia who lives at the [facility], is on a 305 IOC, discharged from our unit 1 month ago after a serious suicide attempt by acetaminophen overdose, who presented requesting hospitalization due to suicidal thoughts with a plan to overdose in the context of worsening auditory hallucinations, including a loud buzzing sound and command auditory hallucinations to kill himself. His psychotic symptoms have been refractory to treatment and very challenging to treat, and during his last hospitalization he was here for > 1 month and had numerous medication trials, with poor response/severe side effects to multiple antipsychotics. Multiple medications were discontinued here but then restarted shortly after discharge, and long term staff noted that his mental state worsened when they were resumed. He has had ongoing conflict with the long term staff, and although he had agreed to allow them to hold all of his medications for safety, he did not follow through on this and was keeping some of his medications in his room, and obvious safety concern given his history of abusing benzodiazepines and overdoses. He had a 306 conversion hearing and is now on a 305 involuntary inpatient admission. A meeting has been held with the CRR staff, patient's disease case manager rn, and members of our treatment team. On admission, we resumed perphenazine and temazepam, the medication regimen he was on at the time of discharge, as he was doing well on that combination of meds, but he is now unfortunately refusing the antipsychotic. Diazepam was added as patient reports it is helpful for his anxiety; but stopped after he refused to swallow the pills and appeared to be cheeking the medication. It had been resumed when patient agreed to take the medication dissolved in water. He is unwilling to accept oral antipsychotics, and we will likely have to get an order for medications over objection. Inpatient treatment is medically necessary due to the severity of symptoms and risk for suicide if discharged. (1) Suicidal ideation: 5/6 -every 15 minute checks for safety. -Continue inpatient treatment, signed in voluntarily but as he is on a 305 IOC, we will have a 3 of 6 conversion hearing tomorrow. Patient advised and aware. -Encourage group attendance, work on healthy coping skills and discharge safety plan. 5/7 -SI continues in response to command auditory hallucinations and loud buzzing noise. 8 -Today the patient describes hearing human voices that command him to commit suicide. He expresses suicidal intent, that he says will become active when he leaves the hospital, but then adds that he does not have the means. He points to the fact that he tried taking an overdose of [id number] medicines and did not , and he adds, "You doctors will not give me [lethal drugs)." He adds that he has considered attempting to kill himself by taking rat poison, and perhaps an advisedly I explained to him that rat poison includes and emetic so that all that would do is make him feel very sick. 12/25 - States today "I will commit suicide as soon as I leave the hospital." 12/26 - 12/27 - Remains suicidal, unwilling to participate in safety planning conversations (2) Schizophrenia: 12/22 -resume medication regimen he was on at the time of discharge 1 month ago, as he was doing well on that combination of medications, and per her CRR staff worsened after some of his previous medications (mirtazapine, clonidine, and alprazolam) were resumed shortly after discharge. Spoke with his outpatient psychiatrist to coordinate care regarding medications. -Continue perphenazine 4 mg every morning and 8 mg q. 1700 hrs., temazepam 7.5 mg at bedtime, melatonin 10 mg at bedtime as needed insomnia, and benztropine 0.5 mg as needed for EPS. -Offer alprazolam 0.5 mg twice daily as needed anxiety/panic. -Treatment planning meeting to include CRR staff, his outpatient disease case manager rn, and will invite outpatient psychiatrist as well, to be held after his commitment hearing tomorrow. He has been refusing recommendations for outpatient therapy for some time, and unaware of any other services available in the community currently, as clubhouse/psych rehab close due to pandemic. 12/23 -306 hearing held, now on a 305 involuntary commitment. We will need to transition back to [facility] at discharge. -Treatment planning meeting held -will send medications to [place] mail order pharmacy at discharge. -Patient indicates willingness to consider outpatient therapy, which is indicated but he has always refused in the past. -Patient has a history of abusing benzodiazepines, but also has significant distress due to tinnitus and chronic insomnia, for which temazepam has been helpful. Benefits includes observed ability to tolerate low-dose temazepam without significant side effects and efficacy of temazepam with failure of multiple other medications for sleep/anxiety/hallucinations. Risks include pote ntial for abuse, intentional overdose, ongoing suicidality with recent suicide attempt by overdose. We attempted to mitigate these by coordinating a plan for CRR staff to hold all of the patient's medications and dispense them daily, so that he would not have access to large amounts of pills which would reduce the potential for abuse or intentional overdose. If he is not willing to do this, the risks likely outweigh the benefits, and benzodiazepines should be discontinued. -Ongoing auditory hallucinations as above; increase perphenazine to 8 mg twice daily. -Fasting labs for monitoring on an antipsychotic reviewed from 02/2019: Glucose 83, FLP all values within normal limits. -Discontinue alprazolam, in order to avoid polypharmacy and worsening confusion. 12/24 -The patient continues to believe, as he has fairly consistently over the years, that he is being persecuted by various entities, possibly in the form of humans, or possibly powerful computers or robots that are seeking his , either by murdering him or by convincing him to commit suicide. His response to questions such as, "why do you suppose they would want to do that" generally is quite concrete, and he responds by saying things such as "because they want me , that is why." -The patient's report today is that he responds favorably to diazepam, not because that medication stops him from hearing the "voices" in the "buzzing" or "chirping" sounds that he hears, but because it reduces his anxiety so he is less apt to be overwhelmed by the distress that it causes him. Staff indicate that he does seem to have responded to a as needed diazepam 5 mg dose given last evening. There is a history of benzodiazepine abuse, and at his age we are reluctant to use benzodiazepines. However, based on past experience with this patient, there is a risk of his becoming fully uncooperative and incorporating this into his delusional system. There is no question but that the patient does experience significant distress associated with his perceptual disturbances and his paranoid delusions. He is responding favorably to the temazepam at bedtime and does have a history of responding to benzodiazepines, as long as they are given in modest dosages and are carefully monitored. Accordingly, he was placed diazepam 5 mg twice a day standing dose starting today. 5/9 - Pt remains depressed and increasingly irritable over the course of his stay thus far. Pt is more reality-based in his perception of the benefit of diazepam, admitting it helps the anxiety he experiences as a result of the "head buzzing" but not the head buzzing itself. Pt does request that the diazepam be available as needed instead of scheduled, but also wishes to increase the dose to three times a day. As patient is reporting dizziness, the request to increase the frequency of the medication was declined at this time, but it will be adjusted to be available twice daily as needed. - Pt is refusing to titrate his dose of perphenazine any further as he does not believe that "any antipsychotic has even been effective so why take more of it." Will order 4mg prn dose of perphenazine which can be offered to the patient for auditory hallucinations, though it is not clear he would request or accept if offered. - Pt maintains that he "will commit suicide as soon as I leave the hospital", and this remains a significant concern given his history of serious overdose and frequent admissions 12/26 - Growing increasingly irritable, only engaging with this provider for a limited period of time today - Continue perphenazine 8mg BID, though patient has been refusing the medication - Diazepam held yesterday as patient was observed to be cheeking the medication - will not resume at this time as patient is not able to participate in conve rsation to discuss appropriate administration of medications 12/27 - Pt remains irritable, with limited participation in interview - Pt continues to refuse to take perphenazine as he states it is contraindicated in dementia (pt reminded that this is not a formal diagnosis, and that multiple providers are recommending the medication) - Evaluate if patient may meet criteria for medications over objection if his medication refusal continues, as it is not reasonable to assume his symptoms will improve without pharmacological interventions. - Requesting only diazepam, but remains unable to engage in conversation regarding how he can reliably take this medication appropriately 12/28 -Patient remains unwilling to take perphenazine or engage in discussion of other antipsychotic options. He has had multiple failed trials and fairly severe side effects to previous antipsychotics, and additionally has poor insight into his illness, which complicates treatment. During his last hospitalization, he had a trial of ziprasidone which was ineffective, and clozapine caused altered mental status and EPS. He ultimately tolerated perphenazine and was discharged on that medication, but is now refusing to take it. Ideally, he would be on a long-acting injectable antipsychotic, but as he is not even been willing to take oral antipsychotics, this limits his options (as there are no immediate release injectable formulations of paliperidone, risperidone, or aripiprazole). I believe he will require medications over objection if he remains unwilling to take an antipsychotic, likely starting with IM haloperidol, as it has p.o., IM, and FARAH options. -Patient does report some relief with diazepam, and at this time I believe the benefits outweigh the risks. It is obviously not a good longer term medication for him given his history of benzodiazepine abuse as well as age and cognitive impairment, but it is the only medication that gives him relief from his current symptoms and that he is willing to take, so my hope is that if we can reduce his anxiety and distress level to some degree, he will be willing to take an antipsychotic medication to target his schizophrenic symptoms. He is agreeing to take the medication dissolved in water, which decreases the risk of cheeking. We will resume 5 mg twice daily. 12/29 - Remains very irritable, limited participation - Pt continues to refuse perphenazine. He was reminded of consideration for medications over objection if he remains unwilling to engage in a conversation about appropriate medications. Pt mentioned olanzapine, but did not verbalize commitment to taking it consistently. We will order olanzapine 5mg BID and continue to offer patient appropriate medications to target his ongoing auditory hallucinations and "head buzzing" - Has been complaint with diazepam dissolved in water (3) Hematuria: 12/22 -hematuria noted on UA in the ER, has had this several times in the past as well. No sign of AMOS or UTI, and ER physician recommended outpatient follow-up with PCP, Dr. Lopez. (4) Memory changes: 12/22 -patient was seen by neurology just prior to discharge at the beginning of November; noted multiple risk factors for dementia, and recommended vitamin B12 level (1371), brain MRI to identify lesions contributing to cognitive impairment, and neuropsychological testing. She also recommended avoiding benzodiazepines. A brain MRI was done on the day of discharge and was notable for mild progressive nonspecific foci of increased T2 signal within the white matter, likely on a small vessel basis, but negative for acute intracranial findings, masses, subacute or acute infarction. He is scheduled to follow-up with Dr. Caal on 02/02/2020. 12/24 -The patient has had a number of encounters with me during the past year, but is unable to recall my name. He does note that on the psychiatrist, and today he is oriented to person, place, time and situation. When I mentioned that I had not heard him complain of right temporal pain before, he replied by saying, "I have just now started calling in a pain, because no one seems to understand how awful [the voices and noises] are." 12/25 -12/27 - Consider repeat MoCA, too irritable to participate Risk Factors Assessment Male: Yes : Yes Do You Have Access To A Gun?: No Health Problems: Yes Mental Health Diagnoses: Yes Substance Use Disorders: Yes Previous Attempt: Yes Previous Attempt; Highly Lethal: Yes Family History of Suicide: Yes Previous Psychiatric Hospitalization: Yes Hopelessness: Yes Smoker: Yes Protective Factors Assessment Congregational Beliefs: No : No Responsible for Young Children: No Employed: No Stable Relationships: No Supportive Family: No Good Rapport with Provider: Yes Interval History Identifying Information SCOTT ROBERTO is a 74-year-old M who currently lives in [facility], has a history of schizophrenia, and was admitted on 12/22/19 16:55 on a 201 voluntary comm itment for suicidal ideation. He is on a 305 IOC, and had a conversion hearing 12/24/2019 to transition to involuntary inpatient commitment. Chief Complaint "Ok..." Review of Systems Notes Pt remains irritable with limited engagement in interview. He does not cooperate with full ROS, but does not verbalize any physical concerns. Sleep Information Total Hours of Sleep: 7.75 Sleep Comments: pt on q-15 minute checks Meal Information Percent Meal Consumed - Breakfast: 100 Percent Meal Consumed - Lunch: 100 Percent Meal Consumed - Dinner: 100 Nutrition Comment: per meal record Subjective Subjective Patient was seen & assessed and interval progress reviewed with treatment team. Staff report the patient continues to be rather irritable. He refused group programming in the morning, but did attend some programming in the afternoon. Pt continues to refuse her scheduled dosing of perphenazine. Pt was seen today to assess progress since admission. Pt states he is "ok" today. When asked how this compares to the past few days, he states "I don't know yet." Pt was asked about his ongoing refusal of perphenazine, and was asked again if he would be willing to resume the medication - replying with only "no." Pt was asked if he would be willing to discuss other medications and again states "no." Pt was informed of concern that medications of objection may be pursued if he remains unwilling for oral medications. Pt states he does not recall having this happen during past admissions. Pt did mention "Zyprexa" but could not state he was willing to take the medication consistently. Pt recalls being on only 5mg of the medication in the past. When informed he had actually been on between 20- 30mg during a past admission, he states "that's a lie." Pt then ended the conversation by stating "I have nothing else to say." Physical Exam Psychiatric Orientation: alert; + uncooperative Apperance: appropriately dressed, appropriately groomed and appeared stated age Eye Contact: good eye contact Motor Behavior: no abnormal motor movements (observed while laying in bed) Speech: normal rate/rhythm/volume of speech (irritable tone, brief responses to questions) Affect: + depressed affect, + irritable affect and + constricted affect Mood: + depressed mood ("ok") Thought Process: + perseveration (with controlling medications) and + concrete thought process Thought Content: + preoccupation, + paranoid, + delusions and + hopelessness Suicidal Thoughts: + reports suicidal thoughts Homicidal Thoughts: denies homicidal thoughts Hallucinations: + auditory hallucinations; no visual hallucinations Cognition: attention grossly intact and language grossly intact Insight: + impaired insight Judgement: + impaired judgement Vital Signs (Past 24 Hours) Last Vital Signs Temp 36.7 C 12/30/19 06:51 Pulse 73 12/30/19 06:51 Resp 18 12/30/19 06:51 BP 122/77 12/30/19 06:51 Pulse Ox 97 12/22/19 17:35 Results & Data ([facility]) Current Inpatient Medications Current Inpatient Medications: Current Inpatient Medications Acetaminophen (Tylenol) 650 mg PO Q4H PRN PRN Reason: Headache or Minor Fever Stop: 01/21/20 16:53 Al Hydrox/Mg Hydrox/Simethicone (Maalox) 30 ml PO Q4H PRN PRN Reason: GI Upset Stop: 01/21/20 16:53 Aspirin (Ecotrin Ectab) 81 mg PO DAILY MAG Stop: 01/22/20 08:59 Last Admin: 12/30/19 08:23 Dose: Not Given Documented by: Benztropine Mesylate (Cogentin) 0.5 mg PO DAILY PRN; Protocol PRN Reason: eps Stop: 01/21/20 16:57 Bismuth Subsalicylate (Kaopectate) 15 ml PO PRN PRN PRN Reason: Loose Stool Stop: 01/21/20 16:53 Diazepam (Valium) 5 mg PO BID MAG Stop: 01/28/20 10:29 Last Admin: 12/30/19 08:31 Dose: 5 mg Documented by: Docusate Sodium (Colace) 100 mg PO BID MAG Stop: 01/21/20 20:59 Last Admin: 12/30/19 08:23 Dose: Not Given Documented by: Haloperidol Lactate (Haldol) 5 mg IM Q6H PRN PRN Reason: Agitation Stop: 01/25/20 16:23 Hydroxyzine HCl (Vistaril) 50 mg PO HSZ PRN PRN Reason: Insomnia Stop: 01/21/20 16:53 Hydroxyzine HCl (Vistaril) 25 mg PO Q4H PRN PRN Reason: Anxiety Stop: 01/21/20 16:53 Magnesium Hydroxide (Milk Of Magnesia) 30 ml PO DAILY PRN PRN Reason: Constipation Stop: 01/21/20 16:53 Melatonin (Melatonin) 3 mg PO HSZ PRN; Protocol PRN Reason: Sleep Stop: 01/22/20 11:50 Perphenazine (Trilafon) 8 mg PO 0900,1700 [facility] Stop: 01/23/20 16:59 Last Admin: 12/30/19 08:23 Dose: Not Given Documented by: Perphenazine (Trilafon) 4 mg PO DAILY PRN PRN Reason: psychosis/AH Stop: 01/25/20 13:54 Sodium Chloride ([place] Nasal) 1 - 2 sprays NA PRN PRN PRN Reason: Nasal Dryness/Congestion Stop: 01/21/20 16:53 Temazepam (Restoril) 7.5 mg PO HSZ MAG Stop: 01/21/20 21:59 Last Admin: 12/29/19 20:34 Dose: 7.5 mg Documented by: Mental Health & Subst Abuse Tx Psychiatrist Name of Psychiatrist: [facility] - Dr. Alves Psychiatrist's Psychiatric Appointment Comment: Telehealth Therapist Name of Therapist: None Recruiting Assistant Name of Recruiting Assistant: Shruti Mcbride Phone Number for Recruiting Assistant: [phone] Post Discharge Appointments Primary Care Physician Name Of Family Doctor: [facility] - Dr. Jeff Lopez Primary Care Provider Appointment Comment: [address], [address], [place] [address] Neurologist Name of Neurologist: [facility] - Dr. Caal Neurologist's Date of Appointment with Neurologist: 02/02/20 Time of Appointment with Neurologist: 10:00 a.m. Neurology Appointment Comment: [address], [address], [place] [address] Other #1: Name of Aftercare Appointment: [facility] Phone Number of Aftercare Appointment: [phone] Aftercare Appointment Comment: [address] [place] [address], [place] [address] Contact Information Discharge Discharge Address: [address] [place] [address] Contact Information Comment: [facility] (1) Schizophrenia Schizophrenia type: unspecified Qualified Code(s): F20.9 - Schizophrenia, unspecified (2) Hematuria Hematuria type: other microscopic Qualified Code(s): R31.29 - Other microscopic hematuria
[2019-12-30] MEDS ORDERED: OLANZapine 5 MG TABLET PO SCH ×2 (11:00→17:45)
[2019-12-30] MEDS ORDERED: OLANZapine 5 MG TABLET PO PRN (14:54)
[2019-12-30] MEDS: TEMAZEPAM 7.5 MG CAPSULE PO SCH (21:00)
[2019-12-31] MEDS: ASPIRIN 81 MG ECTAB PO SCH (08:51)
[2019-12-31] MEDS: DOCUSATE SODIUM 100 MG CAP PO SCH ×2 (08:51→21:24)
[2019-12-31] MEDS: diazePAM 5 MG TABLET PO SCH ×2 (08:52→21:25)
--- NOTE | 2019-12-31 09:01 | Psychiatric Progress Note ---
Date of Service December 31, 2019 Impression / Recommendations Impression 74-year-old male with schizophrenia who lives at the [facility], is on a 305 IOC, discharged from our unit 1 month ago after a serious suicide attempt by acetaminophen overdose, who presented requesting hospitalization due to suicidal thoughts with a plan to overdose in the context of worsening auditory hallucinations, including a loud buzzing sound and command auditory hallucinations to kill himself. His psychotic symptoms have been refractory to treatment and very challenging to treat, and during his last hospitalization he was here for > 1 month and had numerous medication trials, with poor response/severe side effects to multiple antipsychotics. Multiple medications were discontinued here but then restarted shortly after discharge, and [facility] staff noted that his mental state worsened when they were resumed. He has had ongoing conflict with the [facility] staff, and although he had agreed to allow them to hold all of his medications for safety, he did not follow through on this and was keeping some of his medications in his room, and obvious safety concern given his history of abusing benzodiazepines and overdoses. He had a 306 conversion hearing and is now on a 305 involuntary inpatient admission. A meeting has been held with the [facility] staff, patient's major case detective, and members of our treatment team. On admission, we resumed perphenazine and temazepam, the medication regimen he was on at the time of discharge, as he was doing well on that combination of meds, but he is now unfortunately refusing the antipsychotic. Diazepam was added as patient reports it is helpful for his anxiety; but stopped after he refused to swallow the pills and appeared to be cheeking the medication. It had been resumed when patient agreed to take the medication dissolved in water. He is unwilling to accept oral antipsychotics at appropriate therapeutic doses, and we will likely have to get an order for medications over objection. Inpatient treatment is medically necessary due to the severity of symptoms and risk for suicide if discharged. (1) Suicidal ideation: 5/6 -every 15 minute checks for safety. -Continue inpatient treatment, signed in voluntarily but as he is on a 305 IOC, we will have a 3 of 6 conversion hearing tomorrow. Patient advised and aware. -Encourage group attendance, work on healthy coping skills and discharge safety plan. 5/7 -SI continues in response to command auditory hallucinations and loud buzzing noise. 58 -Today the patient describes hearing human voices that command him to commit suicide. He expresses suicidal intent, that he says will become active when he leaves the hospital, but then adds that he does not have the means. He points to the fact that he tried taking an overdose of [id number] medicines and did not , and he adds, "You doctors will not give me [lethal drugs)." He adds that he has considered attempting to kill himself by taking rat poison, and perhaps an advisedly I explained to him that rat poison includes and emetic so that all that would do is make him feel very sick. 12/25 - States today "I will commit suicide as soon as I leave the hospital." 12/26 - 12/27 - Remains suicidal, unwilling to participate in safety planning conversations (2) Schizophrenia: 12/22 -resume medication regimen he was on at the time of discharge 1 month ago, as he was doing well on that combination of medications, and per her CRR staff worsened after some of his previous medications (mirtazapine, clonidine, and alprazolam) were resumed shortly after discharge. Spoke with his outpatient psychiatrist to coordinate care regarding medications. -Continue perphenazine 4 mg every morning and 8 mg q. 1700 hrs., temazepam 7.5 mg at bedtime, melatonin 10 mg at bedtime as needed insomnia, and benztropine 0.5 mg as needed for EPS. -Offer alprazolam 0.5 mg twice daily as needed anxiety/panic. -Treatment planning meeting to include CRR staff, his outpatient major case detective, and will invite outpatient psychiatrist as well, to be held after his commitment hearing tomorrow. He has been refusing recommendations for outpatient therapy for some time, and unaware of any other services available in the community currently, as clubhouse/psych rehab close due to pandemic. 12/23 -306 hearing held, now on a 305 involuntary commitment. We will need to transition back to [facility] at discharge. -Treatment planning meeting held -will send medications to [place] mail order pharmacy at discharge. -Patient indicates willingness to consider outpatient therapy, which is indicated but he has always refused in the past. -Patient has a history of abusing benzodiazepines, but also has significant distress due to tinnitus and chronic insomnia, for which temazepam has been helpful. Benefits includes observed ability to tolerate low-dose temazepam without significant side effects and efficacy of temazepam with failure of multiple other medications for sleep/anxiety/hallucinations. Risks include potential for abuse, intentional overdose, ongoing suicidality with recent suicide attempt by overdose. We attempted to mitigate these by coordinating a plan for CRR staff to hold all of the patient's medications and dispense them daily, so that he would not have access to large amounts of pills which would reduce the potential for abuse or intentional overdose. If he is not willing to do this, the risks likely outweigh the benefits, and benzodiazepines should be discontinued. -Ongoing auditory hallucinations as above; increase perphenazine to 8 mg twice daily. -Fasting labs for monitoring on an antipsychotic reviewed from 02/2019: Glucose 83, FLP all values within normal limits. -Discontinue alprazolam, in order to avoid polypharmacy and worsening confusion. 12/24 -The patient continues to believe, as he has fairly consistently over the years, that he is being persecuted by various entities, possibly in the form of humans, or possibly powerful computers or robots that are seeking his , either by murdering him or by convincing him to commit suicide. His response to questions such as, "why do you suppose they would want to do that" generally is quite concrete, and he responds by saying things such as "because they want me , that is why." -The patient's report today is that he responds favorably to diazepam, not because that medication stops him from hearing the "voices" in the "buzzing" or "chirping" sounds that he hears, but because it reduces his anxiety so he is less apt to be overwhelmed by the distress that it causes him. Staff indicate that he does seem to have responded to a as needed diazepam 5 mg dose given last evening. There is a history of benzodiazepine abuse, and at his age we are reluctant to use benzodiazepines. However, based on past experience with this patient, there is a risk of his becoming fully uncooperative and incorporating this into his delusional system. There is no question but that the patient does experience significant distress associated with his perceptual disturbances and his paranoid delusions. He is responding favorably to the temazepam at bedtime and does have a history of responding to benzodiazepines, as long as they are given in modest dosages and are carefully monitored. Accordingly, he was placed diazepam 5 mg twice a day standing dose starting today. 12/25 - Pt remains depressed and increasingly irritable over the course of his stay thus far. Pt is more reality-based in his perception of the benefit of diazepam, admitting it helps the anxiety he experiences as a result of the "head buzzing" but not the head buzzing itself. Pt does request that the diazepam be available as needed instead of scheduled, but also wishes to increase the dose to three times a day. As patient is reporting dizziness, the request to increase the frequency of the medication was declined at this time, but it will be adjusted to be available twice daily as needed. - Pt is refusing to titrate his dose of perphenazine any further as he does not believe that "any antipsychotic has even been effective so why take more of it." Will order 4mg prn dose of perphenazine which can be offered to the patient for auditory hallucinations, though it is not clear he would request or accept if offered. - Pt maintains that he "will commit suicide as soon as I leave the hospital", and this remains a significant concern given his history of serious overdose and frequent admissions 12/26 - Growing increasingly irritable, only engaging with this provider for a limited period of time today - Continue perphenazine 8mg BID, though patient has been refusing the medication - Diazepam held yesterday as patient was observed to be cheeking the medication - will not resume at this time as patient is not able to participate in conversation to discuss appropriate administration of medications 12/27 - Pt remains irritable, with limited participation in interview - Pt continues to refuse to take perphenazine as he states it is contraindicated in dementia (pt reminded that this is not a formal diagnosis, and that multiple providers are recommending the medication) - Evaluate if patient may meet criteria for medications over objection if his medication refusal continues, as it is not reasonable to assume his symptoms will improve without pharmacological interventions. - Requesting only diazepam, but remains unable to engage in conversation regarding how he can reliably take this medication appropriately 12/28 -Patient remains unwilling to take perphenazine or engage in discussion of other antipsychotic options. He has had multiple failed trials and fairly severe side effects to previous antipsychotics, and additionally has poor insight into his illness, which complicates treatment. During his last hospitalization, he had a trial of ziprasidone which was ineffective, and clozapine caused altered mental status and EPS. He ultimately tolerated perphenazine and was discharged on that medication, but is now refusing to take it. Ideally, he would be on a long-acting injectable antipsychotic, but as he is not even been willing to take oral antipsychotics, this limits his options (as there are no immediate release injectable formulations of paliperidone, risperidone, or aripiprazole). I believe he will require medications over objection if he remains unwilling to take an antipsychotic, likely starting with IM haloperidol, as it has p.o., IM, and FARAH options. -Patient does report some relief with diazepam, and at this time I believe the benefits outweigh the risks. It is obviously not a good longer term medication for him given his history of benzodiazepine abuse as well as age and cognitive impairment, but it is the only medication that gives him relief from his current symptoms and that he is willing to take, so my hope is that if we can reduce his anxiety and distress level to some degree, he will be willing to take an antipsychotic medication to target his schizophrenic symptoms. He is agreeing to take the medication dissolved in water, which decreases the risk of cheeking. We will resume 5 mg twice daily. 12/29 - Remains very irritable, limited participation - Pt continues to refuse perphenazine. He was reminded of consideration for medications over objection if he remains unwilling to engage in a conversation about appropriate medications. Pt mentioned olanzapine, but did not verbalize commitment to taking it consistently. We will order olanzapine 5mg BID and continue to offer patient appropriate medications to target his ongoing auditory hallucinations and "head buzzing" - Has been complaint with diazepam dissolved in water 12/30 - Ongoing irritability limiting engagement in interview today - Pt was aware of recommendation to increase olanzapine to 10mg daily, with ongoing titration over time. Pt only willing to take the medication in the morning, and is refusing to increase dose past 5mg. Olanzapine 10mg was ordered, with staff informed patient could be provided with 5mg if he is only willing to take this amount. Based on patient's ongoing inappropriate requests regarding treatment, it remains highly likely he will require medications over objection in order to target his continued symptoms of schizophrenia. Pt aware that this is being considered, and continues to refuse to engage in conversation regarding appropriate treatment with oral medications. - Continues to be agreeable with diazepam and temazepam - pt made aware that this is insufficient treatment for his schizophrenia diagnosis. (3) Hematuria: 12/22 -hematuria noted on UA in the ER, has had this several times in the past as well. No sign of AMOS or UTI, and ER physician recommended outpatient follow-up with PCP, Dr. Lopez. (4) Memory changes: 12/22 -patient was seen by neurology just prior to discharge at the beginning of November; noted multiple risk factors for dementia, and recommended vitamin B12 level (1371), brain MRI to identify lesions contributing to cognitive impairment, and neuropsychological testing. She also recommended avoiding benzodiazepines. A brain MRI was done on the day of discharge and was notable for mild progressive nonspecific foci of increased T2 signal within the white matter, likely on a small vessel basis, but negative for acute in tracranial findings, masses, subacute or acute infarction. He is scheduled to follow-up with Dr. Caal on 02/02/2020. 12/24 -The patient has had a number of encounters with me during the past year, but is unable to recall my name. He does note that on the psychiatrist, and today he is oriented to person, place, time and situation. When I mentioned that I had not heard him complain of right temporal pain before, he replied by saying, "I have just now started calling in a pain, because no one seems to understand how awful [the voices and noises] are." 12/25 -12/30 - Consider repeat MoCA, too irritable to participate Risk Factors Assessment Male: Yes : Yes Do You Have Access To A Gun?: No Health Problems: Yes Mental Health Diagnoses: Yes Substance Use Disorders: Yes Previous Attempt: Yes Previous Attempt; Highly Lethal: Yes Family History of Suicide: Yes Previous Psychiatric Hospitalization: Yes Hopelessness: Yes Smoker: Yes Protective Factors Assessment Judaism Beliefs: No : No Responsible for Young Children: No Employed: No Stable Relationships: No Supportive Family: No Good Rapport with Provider: Yes Interval History Identifying Information SCOTT ROBERTO is a 74-year-old M who currently lives in [facility], has a history of schizophrenia, and was admitted on 12/22/19 16:55 on a 201 voluntary commitment for suicidal ideation. He is on a 305 IOC, and had a conversion hearing 12/24/2019 to transition to involuntary inpatient commitment. Chief Complaint "The Restoril makes a difference." Review of Systems Notes Pt remains irritable, very limited willingness to participate in conversation - refused to engaged in ROS - did not verbalize any physical complaints at this time. Sleep Information Total Hours of Sleep: 7 Sleep Comments: pt on q-15 minute checks Meal Information Percent Meal Consumed - Breakfast: 100 Percent Meal Consumed - Lunch: 100 Percent Meal Consumed - Dinner: 100 Nutrition Comment: per meal record Subjective Subjective Patient was seen & assessed and interval progress reviewed with nursing and social work. Staff report the patient continues to be irritable. He did attend some group programming yesterday. He refused his HS dose of olanzapine, infor lucas staff he would only be willing to take the medication once a day. Pt was seen today to assess progress since admission. Pt reports that sleep is improved in the hospital, stating "the Restoril makes a difference." This provider offered to consolidate his olanzapine to bedtime, as he reported last evening he would not take the medication more than once a day. Pt states he wants to take the medication in the morning, despite this provider's caution that the medication can contribute to significant fatigue and may be better tolerated in the evening. Pt was informed that the dose would be increased to 10mg today, with plans for ongoing titration. He states, "no. I won't take more than 5mg." He then stated "you push too much psychotropic medication. You're crazy!" This provider informed him that nearly all individuals with schizophrenia require significantly higher doses of olanzapine than 5mg - he inquires "who are these people? They're not me." Pt states "it's all weight based. You're fat, so you would need a full dose. I'm skinny, so I only need half." Pt was informed that although weight is a consideration, it is not the only variable taken into account and that the dose would be titrated to target his symptoms. Pt states "I won't take more than 5mg. You can shoot me up everyday if you feel you have to. You are going to do your thing anyway." Pt was reminded that our preference would be to come to an agreement regarding medications that can be given orally, but that medications over objection will be considered if this cannot be done. Pt then refuses to respond to the remainder of this provider's questions. Physical Exam Psychiatric Orientation: alert and + guarded (uncooperative ) Apperance: appropriately dressed and appropriately groomed Eye Contact: + poor eye contact (avoids direct eye contact ) Motor Behavior: no abnormal motor movements (observed while laying in bed ) Speech: normal rate/rhythm/volume of speech (irritable tone, brief responses to questions) Affect: + irritable affect Mood: + irritable mood Thought Process: goal directed thought process and + concrete thought process Thought Content: + preoccupation (with specific medication requests ), + paranoid, + delusions and + persecution Suicidal Thoughts: + reports suicidal thoughts Hallucinations: + auditory hallucinations (ongoing "head buzzing"); no visual hallucinations Cognition: attention grossly intact and language grossly intact Insight: + impaired insight Judgement: + severely impaired judgement Vital Signs (Past 24 Hours) Last Vital Signs Temp 36.8 C 12/31/19 06:51 Pulse 88 12/31/19 06:53 Resp 18 12/31/19 06:51 BP 117/68 12/31/19 06:53 Pulse Ox 97 12/22/19 17:35 Results & Data ([facility]) Current Inpatient Medications Current Inpatient Medications: Current Inpatient Medications Acetaminophen (Tylenol) 650 mg PO Q4H PRN PRN Reason: Headache or Minor Fever Stop: 01/21/20 16:53 Al Hydrox/Mg Hydrox/Simethicone (Maalox) 30 ml PO Q4H PRN PRN Reason: GI Upset Stop: 01/21/20 16:53 Aspirin (Ecotrin Ectab) 81 mg PO DAILY [facility] Stop: 01/22/20 08:59 Last Admin: 12/31/19 08:51 Dose: 81 mg Documented by: Benztropine Mesylate (Cogentin) 0.5 mg PO DAILY PRN; Protocol PRN Reason: eps Stop: 01/21/20 16:57 Bismuth Subsalicylate (Kaopectate) 15 ml PO PRN PRN PRN Reason: Loose Stool Stop: 01/21/20 16:53 Diazepam (Valium) 5 mg PO BID [facility] Stop: 01/28/20 10:29 Last Admin: 12/31/19 08:52 Dose: 5 mg Documented by: Docusate Sodium (Colace) 100 mg PO BID [facility] Stop: 01/21/20 20:59 Last Admin: 12/31/19 08:51 Dose: 100 mg Documented by: Haloperidol Lactate (Haldol) 5 mg IM Q6H PRN PRN Reason: Agitation Stop: 01/25/20 16:23 Hydroxyzine HCl (Vistaril) 50 mg PO HSZ PRN PRN Reason: Insomnia Stop: 01/21/20 16:53 Hydroxyzine HCl (Vistaril) 25 mg PO Q4H PRN PRN Reason: Anxiety Stop: 01/21/20 16:53 Magnesium Hydroxide (Milk Of Magnesia) 30 ml PO DAILY PRN PRN Reason: Constipation Stop: 01/21/20 16:53 Melatonin (Melatonin) 3 mg PO HSZ PRN; Protocol PRN Reason: Sleep Stop: 01/22/20 11:50 Olanzapine (Zyprexa) 5 mg PO Q6H PRN PRN Reason: Agitation Stop: 01/29/20 14:59 Olanzapine (Zyprexa) 10 mg PO DAILY@1730 MAG Stop: 01/30/20 17:29 Perphenazine (Trilafon) 8 mg PO 0900,1700 MAG Stop: 01/23/20 16:59 Last Admin: 12/30/19 08:23 Dose: Not Given Documented by: Perphenazine (Trilafon) 4 mg PO DAILY PRN PRN Reason: psychosis/AH Stop: 01/25/20 13:54 Sodium Chloride (Scioto Nasal) 1 - 2 sprays NA PRN PRN PRN Reason: Nasal Dryness/Congestion Stop: 01/21/20 16:53 Temazepam (Restoril) 7.5 mg PO HSZ MAG Stop: 01/21/20 21:59 Last Admin: 12/30/19 21:00 Dose: 7.5 mg Documented by: Mental Health & Subst Abuse Tx Psychiatrist Name of Psychiatrist: [facility] - Dr. Alves Psychiatrist's Psychiatric Appointment Comment: Telehealth Therapist Name of Therapist: None Medical Case Worker Name of Medical Case Worker: Shruti Mcbride Phone Number for Medical Case Worker: [phone] Post Discharge Appointments Primary Care Physician Name Of Family Doctor: [facility] - Dr. Jeff Lopez Primary Care Provider Appointment Comment: [address] [facility], [address], [place], [place] [address] Neurologist Name of Neurologist: [facility] [place] - Dr. Caal Neurologist's Date of Appointment with Neurologist: 02/02/20 Time of Appointment with Neurologist: 10:00 a.m. Neurology Appointment Comment: [address], [address], [place] [address] Other #1: Name of Aftercare Appointment: [facility] Phone Number of Aftercare Appointment: [phone] Aftercare Appointment Comment: [address] [place] [address], [place] [address] Contact Information Discharge Discharge Address: [address] [place] [address], [place] [address] Contact Information Comment: SARAH RANDI (1) Hematuria Hematuria type: other microscopic Qualified Code(s): R31.29 - Other microscopic hematuria (2) Schizophrenia Schizophrenia type: unspecified Qualified Code(s): F20.9 - Schizophrenia, unspecified
[2019-12-31] MEDS: OLANZapine 10 MG TAB PO SCH (10:04)
[2019-12-31] MEDS ORDERED: OLANZapine 10 MG TAB PO SCH (17:30)
[2019-12-31] MEDS: TEMAZEPAM 7.5 MG CAPSULE PO SCH (21:25)
[2020-01-01] MEDS: diazePAM 5 MG TABLET PO SCH ×2 (08:35→21:16)
[2020-01-01] MEDS: DOCUSATE SODIUM 100 MG CAP PO SCH ×2 (08:35→21:15)
[2020-01-01] MEDS: OLANZapine 10 MG TAB PO SCH (08:35)
[2020-01-01] MEDS: ASPIRIN 81 MG ECTAB PO SCH (08:35)
--- NOTE | 2020-01-01 15:32 | Psychiatric Progress Note ---
Date of Service January 01, 2020 Impression / Recommendations Impression 74-year-old male with schizophrenia who lives at the [facility], is on a 305 IOC, discharged from our unit 1 month ago after a serious suicide attempt by acetaminophen overdose, who presented requesting hospitalization due to suicidal thoughts with a plan to overdose in the context of worsening auditory hallucinations, including a loud buzzing sound and command auditory hallucinations to kill himself. His psychotic symptoms have been refractory to treatment and very challenging to treat, and during his last hospitalization he was here for > 1 month and had numerous medication trials, with poor response/severe side effects to multiple antipsychotics. Multiple medications were discontinued here but then restarted shortly after discharge, and assisted staff noted that his mental state worsened when they were resumed. He has had ongoing conflict with the assisted staff, and although he had agreed to allow them to hold all of his medications for safety, he did not follow through on this and was keeping some of his medications in his room, and obvious safety concern given his history of abusing benzodiazepines and overdoses. He had a 306 conversion hearing and is now on a 305 involuntary inpatient admission. A meeting has been held with the CRR staff, patient's manager of case, and members of our treatment team. On admission, we resumed perphenazine and temazepam, the medication regimen he was on at the time of discharge, as he was doing well on that combination of meds, but he is now unfortunately refusing the antipsychotic. Diazepam was added as patient reports it is helpful for his anxiety; but stopped after he refused to swallow the pills and appeared to be cheeking the medication. It had been resumed when patient agreed to take the medication dissolved in water. Pt remains inconsistent with reports of willingness for oral antipsychotics at appropriate therapeutic doses, therefore two psychiatrist opinions for medication over objection are being added to the patient's chart. 5mg of IM olanzapine has been ordered for refusal of oral medications. Inpatient treatment is medically necessary due to the severity of symptoms and risk for suicide if discharged. (1) Suicidal ideation: 5/6 -every 15 minute checks for safety. -Continue inpatient treatment, signed in voluntarily but as he is on a 305 IOC, we will have a 3 of 6 conversion hearing tomorrow. Patient advised and aware. -Encourage group attendance, work on healthy coping skills and discharge safety plan. 5/7 -SI continues in response to command auditory hallucinations and loud buzzing noise. 12/24 -Today the patient describes hearing human voices that command him to commit suicide. He expresses suicidal intent, that he says will become active when he leaves the hospital, but then adds that he does not have the means. He points to the fact that he tried taking an overdose of lquo-bkj-cozefit medicines and did not , and he adds, "You doctors will not give me [lethal drugs)." He adds that he has considered attempting to kill himself by taking rat poison, and perhaps an advisedly I explained to him that rat poison includes and emetic so that all that would do is make him feel very sick. 12/25 - States today "I will commit suicide as soon as I leave the hospital." 12/26 - 12/27 - Remains suicidal, unwilling to participate in safety planning conversations 12/31 - Ongoing, daily suicidality (2) Schizophrenia: 12/22 -resume medication regimen he was on at the time of discharge 1 month ago, as he was doing well on that combination of medications, and per her CRR staff worsened after some of his previous medications (mirtazapine, clonidine, and alprazolam) were resumed shortly after discharge. Spoke with his outpatient psychiatrist to coordinate care regarding medications. -Continue perphenazine 4 mg every morning and 8 mg q. 1700 hrs., temazepam 7.5 mg at bedtime, melatonin 10 mg at bedtime as needed insomnia, and benztropine 0.5 mg as needed for EPS. -Offer alprazolam 0.5 mg twice daily as needed anxiety/panic. -Treatment planning meeting to include CRR staff, his outpatient manager of case, and will invite outpatient psychiatrist as well, to be held after his commitment hearing tomorrow. He has been refusing recommendations for outpatient therapy for some time, and unaware of any other services available in the community currently, as clubhouse/psych rehab close due to pandemic. 12/23 -306 hearing held, now on a 305 involuntary commitment. We will need to transition back to [facility] at discharge. -Treatment planning meeting held -will send medications to [facility] mail order [facility] at discharge. -Patient indicates willingness to consider outpatient therapy, which is indicated but he has always refused in the past. -Patient has a history of abusing benzodiazepines, but also has significant distress due to tinnitus and chronic insomnia, for which temazepam has been helpful. Benefits includes observed ability to tolerate low-dose temazepam without significant side effects and efficacy of temazepam with failure of multiple other medications for sleep/anxiety/hallucinations. Risks include potential for abuse, intentional overdose, ongoing suicidality with recent suicide attempt by overdose. We attempted to mitigate these by coordinating a plan for CRR staff to hold all of the patient's medications and dispense them daily, so that he would not have access to large amounts of pills which would reduce the potential for abuse or intentional overdose. If he is not willing to do this, the risks likely outweigh the benefits, and benzodiazepines should be discontinued. -Ongoing auditory hallucinations as above; increase perphenazine to 8 mg twice daily. -Fasting labs for monitoring on an antipsychotic reviewed from 02/2019: Glucose 83, FLP all values within normal limits. -Discontinue alprazolam, in order to avoid polypharmacy and worsening confusion. 12/24 -The patient continues to believe, as he has fairly consistently over the years, that he is being persecuted by various entities, possibly in the form of humans, or possibly powerful computers or robots that are seeking his , either by murdering him or by convincing him to commit suicide. His response to questions such as, "why do you suppose they would want to do that" generally is quite concrete, and he responds by saying things such as "because they want me , that is why." -The patient's report today is that he responds favorably to diazepam, not because that medication stops him from hearing the "voices" in the "buzzing" or "chirping" sounds that he hears, but because it reduces his anxiety so he is less apt to be overwhelmed by the distress that it causes him. Staff indicate that he does seem to have responded to a as needed diazepam 5 mg dose given last evening. There is a history of benzodiazepine abuse, and at his age we are reluctant to use benzodiazepines. However, based on past experience with this patient, there is a risk of his becoming fully uncooperative and incorporating this into his delusional system. There is no question but that the patient does experience significant distress associated with his perceptual disturbances and his paranoid delusions. He is responding favorably to the temazepam at bedtime and does have a history of responding to benzodiazepines, as long as they are given in modest dosages and are carefully monitored. Accordingly, he was placed diazepam 5 mg twice a day standing dose starting today. 12/25 - Pt remains depressed and increasingly irritable over the course of his stay thus far. Pt is more reality-based in his perception of the benefit of diazepam, admitting it helps the anxiety he experiences as a result of the "head buzzing" but not the head buzzing itself. Pt does request that the diazepam be available as needed instead of scheduled, but also wishes to increase the dose to three times a day. As patient is reporting dizziness, the request to increase the frequency of the medication was declined at this time, but it will be adjusted to be available twice daily as needed. - Pt is refusing to titrate his dose of perphenazine any further as he does not believe that "any antipsychotic has even been effective so why take more of it." Will order 4mg prn dose of perphenazine which can be offered to the patient for auditory hallucinations, though it is not clear he would request or accept if offered. - Pt maintains that he "will commit suicide as soon as I leave the hospital", and this remains a significant concern given his history of serious overdose and frequent admissions 12/26 - Growing increasingly irritable, only engaging with this provider for a limited period of time today - Continue perphenazine 8mg BID, though patient has been refusing the medication - Diazepam held yesterday as patient was observed to be cheeking the medication - will not resume at this time as patient is not able to participate in c onversation to discuss appropriate administration of medications 12/27 - Pt remains irritable, with limited participation in interview - Pt continues to refuse to take perphenazine as he states it is contraindicated in dementia (pt reminded that this is not a formal diagnosis, and that multiple providers are recommending the medication) - Evaluate if patient may meet criteria for medications over objection if his medication refusal continues, as it is not reasonable to assume his symptoms will improve without pharmacological interventions. - Requesting only diazepam, but remains unable to engage in conversation regarding how he can reliably take this medication appropriately 12/28 -Patient remains unwilling to take perphenazine or engage in discussion of other antipsychotic options. He has had multiple failed trials and fairly severe side effects to previous antipsychotics, and additionally has poor insight into his illness, which complicates treatment. During his last hospitalization, he had a trial of ziprasidone which was ineffective, and clozapine caused altered mental status and EPS. He ultimately tolerated perphenazine and was discharged on that medication, but is now refusing to take it. Ideally, he would be on a long-acting injectable antipsychotic, but as he is not even been willing to take oral antipsychotics, this limits his options (as there are no immediate release injectable formulations of paliperidone, risperidone, or aripiprazole). I believe he will require medications over objection if he remains unwilling to take an antipsychotic, likely starting with IM haloperidol, as it has p.o., IM, and FARAH options. -Patient does report some relief with diazepam, and at this time I believe the benefits outweigh the risks. It is obviously not a good longer term medication for him given his history of benzodiazepine abuse as well as age and cognitive impairment, but it is the only medication that gives him relief from his current symptoms and that he is willing to take, so my hope is that if we can reduce his anxiety and distress level to some degree, he will be willing to take an antipsychotic medication to target his schizophrenic symptoms. He is agreeing to take the medication dissolved in water, which decreases the risk of cheeking. We will resume 5 mg twice daily. 12/29 - Remains very irritable, limited participation - Pt continues to refuse perphenazine. He was reminded of consideration for medications over objection if he remains unwilling to engage in a conversation about appropriate medications. Pt mentioned olanzapine, but did not verbalize commitment to taking it consistently. We will order olanzapine 5mg BID and continue to offer patient appropriate medications to target his ongoing auditory hallucinations and "head buzzing" - Has been complaint with diazepam dissolved in water 12/30 - Ongoing irritability limiting engagement in interview today - Pt was aware of recommendation to increase olanzapine to 10mg daily, with ongoing titration over time. Pt only willing to take the medication in the morning, and is refusing to increase dose past 5mg. Olanzapine 10mg was ordered, with staff informed patient could be provided with 5mg if he is only willing to take this amount. Based on patient's ongoing inappropriate requests regarding treatment, it remains highly likely he will require medications over objection in order to target his continued symptoms of schizophrenia. Pt aware that this is being considered, and continues to refuse to engage in conversation regarding appropriate treatment with oral medications. - Continues to be agreeable with diazepam and temazepam - pt made aware that this is insufficient treatment for his schizophrenia diagnosis. 12/31 - Ongoing irritability, but more willing to engage in conversation today. - Pt is currently agreeable with taking 5mg of olanzapine at bedtime, but refuses to go up on the dose beyond that. First opinion for medications over objection is written in chart. Second opinion was documented in Communication Note dated 01/01/2020. 5mg IM injection of olanzapine has been ordered for refusal of oral medications. - Pt continues to request higher doses of diazepam, as he believes it is the only thing that works for his auditory hallucinations. Pt continues to be informed that dose will not be adjusted beyond 5mg BID. - Pt did take a call from his outpatient psychiatric manager of case today (3) Hematuria: 12/22 -hematuria noted on UA in the ER, has had this several times in the past as well. No sign of AMOS or UTI, and ER physician recommended outpatient follow-up with PCP, Dr. Lopez. (4) Memory changes: 12/22 -patient was seen by neurology just prior to discharge at the beginning of November; noted multiple risk factors for dementia, and recommended vitamin B12 level (1371), brain MRI to identify lesions contributing to cognitive impairment, and neuropsychological testing. She also recommended avoiding benzodiazepines. A brain MRI was done on the day of discharge and was notable for mild progressive nonspecific foci of increased T2 signal within the white matter, likely on a small vessel basis, but negative for acute intracranial findings, masses, subacute or acute infarction. He is scheduled to follow-up with Dr. Caal on 02/02/2020. 12/24 -The patient has had a number of encounters with me during the past year, but is unable to recall my name. He does note that on the psychiatrist, and today he is oriented to person, place, time and situation. When I mentioned that I had not heard him complain of right temporal pain before, he replied by saying, "I have just now started calling in a pain, because no one seems to understand how awful [the voices and noises] are." 12/25 -12/30 - Consider repeat MoCA, too irritable to participate Risk Factors Assessment Male: Yes : Yes Do You Have Access To A Gun?: No Health Problems: Yes Mental Health Diagnoses: Yes Substance Use Disorders: Yes Previous Attempt: Yes Previous Attempt; Highly Lethal: Yes Family History of Suicide: Yes Previous Psychiatric Hospitalization: Yes Hopelessness: Yes Smoker: Yes Protective Factors Assessment Jain Beliefs: No : No Responsible for Young Children: No Employed: No Stable Relationships: No Supportive Family: No Good Rapport with Provider: Yes Interval History Identifying Information SCOTT ROBERTO is a 74-year-old M who currently lives in [facility], has a history of schizophrenia, and was admitted on 12/22/19 16:55 on a 201 voluntary commitment for suicidal ideation. He is on a 305 IOC, and had a conversion hearing 12/24/2019 to transition to involuntary inpatient commitment. Chief Complaint "I'm ok." Review of Systems Notes Constitutional: reports increased fatigue today, ongoing "head buzzing" Cardiovascular: denied Respiratory: denied Gastrointestinal: denied Neurological: denied Psychiatric: denies symptoms other than stated above Total of at least 10 systems reviewed, pertinent positives as above and in HPI. Sleep Information Total Hours of Sleep: 6.5 Sleep Comments: pt on q-15 minute checks Meal Information Percent Meal Consumed - Breakfast: 100 Percent Meal Consumed - Lunch: 100 Percent Meal Consumed - Dinner: 100 Nutrition Comment: per meal record Subjective Subjective Patient was seen & assessed and interval progress reviewed with treatment team. Staff report the patient continues to be largely isolative and intermittently irritable. Pt rated his mood a 4/10 last evening, with reports of "anxiety and pain" (pain being his way to describe his ongoing auditory hallucinations). Pt refused to take olanzapine 10mg this morning. Pt was seen today to assess progress since admission. Pt states he is "ok" today. He reports that he is "resting" has he feels "tired" today. Pt reports he slept well last evening, so has not explanation of why he may be more fatigued today. This provider offered the patient to resume 5mg of olanzapine, as he previously requested/agreed to. Pt indicates today that he would prefer to take this medication at bedtime. Pt is adamant that "I won't take more than that." He tells this provider "I took 5mg of Zyprexa a day for 4 months when I was at [facility]. That was standard for all the patients. The dose was never changed. I don't need more than that. You keep pushing medications that just don't work." Pt continues to share more of his thoughts and emotions with this provider. He states "the voices don't ever change. The pain doesn't go away, ever." This provider attempted to reiterate goals of utilizing antipsychotics to target his auditory hallucinations. Pt states "medication scares the hell out of me, it does damage to the brain that you don't even know about." As we continued to discuss medication adjustments, the patient states "you are trying to fit me into a pattern that isn't there. I'm not psychotic. I function. I'm perfectly rational." Pt denies SI during our conversation, but admits that suicidality is occurring daily. He states "you can't live with this amount of pain and anxiety." He denies any additional needs at this time, and states "I'm just tired, I don't have anything else to say right now." Physical Exam Psychiatric Orientation: alert and + guarded (superficially cooperative ) Apperance: appropriately dressed, appropriately groomed and appeared stated age Eye Contact: + fair eye contact Motor Behavior: no abnormal motor movements (observed while laying in bed ) Speech: normal rate/rhythm/volume of speech (irritable tone intermittently ) Affect: + depressed affect and + flat affect Mood: no depressed mood ("Ok") Thought Process: goal directed thought process, + perseveration and + concrete thought process Thought Content: + preoccupation (with requesting specific medications), + delu sions and + hopelessness Suicidal Thoughts: + reports suicidal thoughts (reports daily SI) Homicidal Thoughts: denies homicidal thoughts Hallucinations: + auditory hallucinations (ongoing voices, which he describes as "pain" and "head buzzing"); no visual hallucinations Cognition: attention grossly intact and language grossly intact Insight: + impaired insight Judgement: + poor judgement Vital Signs (Past 24 Hours) Last Vital Signs Temp 36.7 C 01/01/20 06:30 Pulse 71 01/01/20 06:30 Resp 18 01/01/20 06:30 BP 113/68 01/01/20 06:36 Pulse Ox 97 12/22/19 17:35 Results & Data ([facility]) Current Inpatient Medications Current Inpatient Medications: Current Inpatient Medications Acetaminophen (Tylenol) 650 mg PO Q4H PRN PRN Reason: Headache or Minor Fever Stop: 01/21/20 16:53 Al Hydrox/Mg Hydrox/Simethicone (Maalox) 30 ml PO Q4H PRN PRN Reason: GI Upset Stop: 01/21/20 16:53 Aspirin (Ecotrin Ectab) 81 mg PO DAILY MAG Stop: 01/22/20 08:59 Last Admin: 01/01/20 08:35 Dose: 81 mg Documented by: Benztropine Mesylate (Cogentin) 0.5 mg PO DAILY PRN; Protocol PRN Reason: eps Stop: 01/21/20 16:57 Bismuth Subsalicylate (Kaopectate) 15 ml PO PRN PRN PRN Reason: Loose Stool Stop: 01/21/20 16:53 Diazepam (Valium) 5 mg PO BID [facility] Stop: 01/28/20 10:29 Last Admin: 01/01/20 08:35 Dose: 5 mg Documented by: Docusate Sodium (Colace) 100 mg PO BID [facility] Stop: 01/21/20 20:59 Last Admin: 01/01/20 08:35 Dose: 100 mg Documented by: Haloperidol Lactate (Haldol) 5 mg IM Q6H PRN PRN Reason: Agitation Stop: 01/25/20 16:23 Hydroxyzine HCl (Vistaril) 50 mg PO HSZ PRN PRN Reason: Insomnia Stop: 01/21/20 16:53 Hydroxyzine HCl (Vistaril) 25 mg PO Q4H PRN PRN Reason: Anxiety Stop: 01/21/20 16:53 Magnesium Hydroxide (Milk Of Magnesia) 30 ml PO DAILY PRN PRN Reason: Constipation Stop: 01/21/20 16:53 Melatonin (Melatonin) 3 mg PO HSZ PRN; Protocol PRN Reason: Sleep Stop: 01/22/20 11:50 Olanzapine (Zyprexa) 5 mg PO Q6H PRN PRN Reason: Agitation Stop: 01/29/20 14:59 Olanzapine (Zyprexa) 10 mg PO QAM [facility] Stop: 01/30/20 09:29 Last Admin: 01/01/20 08:35 Dose: Not Given Documented by: Perphenazine (Trilafon) 8 mg PO 0900,1700 [facility] Stop: 01/23/20 16:59 Last Admin: 12/30/19 08:23 Dose: Not Given Documented by: Perphenazine (Trilafon) 4 mg PO DAILY PRN PRN Reason: psychosis/AH Stop: 01/25/20 13:54 Sodium Chloride ([place] Nasal) 1 - 2 sprays NA PRN PRN PRN Reason: Nasal Dryness/Congestion Stop: 01/21/20 16:53 Temazepam (Restoril) 7.5 mg PO HSZ MAG Stop: 01/21/20 21:59 Last Admin: 12/31/19 21:25 Dose: 7.5 mg Documented by: Mental Health & Subst Abuse Tx Psychiatrist Name of Psychiatrist: [facility] - Dr. Alves Psychiatrist's Psychiatric Appointment Comment: Telehealth Therapist Name of Therapist: None Research Rn Spec Name of Research Rn Spec: Shruti Mcbride Phone Number for Research Rn Spec: [phone] Post Discharge Appointments Primary Care Physician Name Of Family Doctor: [facility] - Dr. Jeff Lopez Primary Care Provider Appointment Comment: [address], [address], [place] [address] Neurologist Name of Neurologist: JOAQUÍN - Dr. Caal Neurologist's Date of Appointment with Neurologist: 02/02/20 Time of Appointment with Neurologist: 10:00 a.m. Neurology Appointment Comment: [address], [address], [place] [address] Other #1: Name of Aftercare Appointment: JERRELL BRYAN Phone Number of Aftercare Appointment: [phone] Aftercare Appointment Comment: [address] [place] [address] Contact Information Discharge Discharge Address: [address] [place] [address] Contact Information Comment: JERRELL BRYAN (1) Schizophrenia Schizophrenia type: unspecified Qualified Code(s): F20.9 - Schizophrenia, unspecified (2) Hematuria Hematuria type: other microscopic Qualified Code(s): R31.29 - Other microscopic hematuria
--- NOTE | 2020-01-01 15:44 | Communication Note ---
Date of Service: January 01, 2020 I met personally with Mr Santiago today. He continues to report and describe persecutory auditory hallucinations that he variously describes as "pain" and "chirping" and "buzzing" and verbal commands to engage in behaviors such as "take rat poison and ." He tells me that these sounds are part of an organized plan to harass him, and that they are generated by persons on scene or by machines that are controlled by persons on scene. Although the patient insists that he does not respond to any antipsychotic medications, the record clearly indicates that, in the past, he has responded well to a number of antipsychotic medications, although the response has not necessarily led to a complete resolution of all symptoms. Nevertheless, the family response to antipsychotic medications have come in the past, resulted in improvement in the patient's mental status to the degree that he can be safely transitioned back to the community for treatment at a less intensive, less restrictive level of care. Currently, the patient is telling me that he plans to continue to refuse antipsychotic medications and come instead, simply wants diazepam. It is my finding that the patient suffers from a major mental illness, namely schizophrenia. He is unlikely to improve and recover to the degree that he will be safely able to leave the hospital without the administration of antipsychotic medications. Accordingly, I am in agreement with Dr. Campos that it is medically necessary for Mr. Santiago be given intramuscular antipsychotic medications, if necessary against his will in the event that he refuses prescribed oral antipsychotic medications, currently olanzapine, at the prescribed dosages. I am ordering olanzapine 5 mg IM as needed for refusal of PO olanzapine.
[2020-01-01] MEDS ORDERED: OLANZapine 10 MG/2.1 ML SDV IM PRN (15:45)
[2020-01-01] MEDS: TEMAZEPAM 7.5 MG CAPSULE PO SCH (21:16)
[2020-01-01] MEDS: OLANZapine 5 MG TABLET PO SCH (21:17)
[2020-01-02] MEDS: ASPIRIN 81 MG ECTAB PO SCH (08:21)
[2020-01-02] MEDS: diazePAM 5 MG TABLET PO SCH ×2 (08:21→21:06)
[2020-01-02] MEDS: DOCUSATE SODIUM 100 MG CAP PO SCH ×2 (08:21→21:06)
[2020-01-02] MEDS: ACETAMINOPHEN 325 MG TAB PO PRN ×2 (15:03→21:04)
--- NOTE | 2020-01-02 16:22 | Psychiatric Progress Note ---
Date of Service January 02, 2020 Impression / Recommendations Impression 74-year-old male with schizophrenia who lives at the [facility], is on a 305 IOC, discharged from our unit 1 month ago after a serious suicide attempt by acetaminophen overdose, who presented requesting hospitalization due to suicidal thoughts with a plan to overdose in the context of worsening auditory hallucinations, including a loud buzzing sound and command auditory hallucinations to kill himself. His psychotic symptoms have been refractory to treatment and very challenging to treat, and during his last hospitalization he was here for > 1 month and had numerous medication trials, with poor response/severe side effects to multiple antipsychotics. Multiple medications were discontinued here but then restarted shortly after discharge, and residential staff noted that his mental state worsened when they were resumed. He has had ongoing conflict with the residential staff, and although he had agreed to allow them to hold all of his medications for safety, he did not follow through on this and was keeping some of his medications in his room, and obvious safety concern given his history of abusing benzodiazepines and overdoses. He had a 306 conversion hearing and is now on a 305 involuntary inpatient admission. A meeting has been held with the CRR staff, patient's correctional counselor/case manager, and members of our treatment team. On admission, we resumed perphenazine and temazepam, the medication regimen he was on at the time of discharge, as he was doing well on that combination of meds, but he is now unfortunately refusing the antipsychotic. Diazepam was added as patient reports it is helpful for his anxiety; but stopped after he refused to swallow the pills and appeared to be cheeking the medication. It had been resumed when patient agreed to take the medication dissolved in water. Pt remains inconsistent with reports of willingness for oral antipsychotics at appropriate therapeutic doses, therefore two psychiatrist opinions for medication over objection are being added to the patient's chart. 5mg of IM olanzapine has been ordered for refusal of oral medications. Inpatient treatment is medically necessary due to the severity of symptoms and risk for suicide if discharged. (1) Suicidal ideation: 5/6 -every 15 minute checks for safety. -Continue inpatient treatment, signed in voluntarily but as he is on a 305 IOC, we will have a 3 of 6 conversion hearing tomorrow. Patient advised and aware. -Encourage group attendance, work on healthy coping skills and discharge safety plan. 5/7 -SI continues in response to command auditory hallucinations and loud buzzing noise. 12/24 -Today the patient describes hearing human voices that command him to commit suicide. He expresses suicidal intent, that he says will become active when he leaves the hospital, but then adds that he does not have the means. He points to the fact that he tried taking an overdose of [id number] medicines and did not , and he adds, "You doctors will not give me [lethal drugs)." He adds that he has considered attempting to kill himself by taking rat poison, and perhaps an advisedly I explained to him that rat poison includes and emetic so that all that would do is make him feel very sick. 12/25 - States today "I will commit suicide as soon as I leave the hospital." 12/26 - 12/27 - Remains suicidal, unwilling to participate in safety planning conversations 12/31 - Ongoing, daily suicidality 01/01 -no change (2) Schizophrenia: 12/22 -resume medication regimen he was on at the time of discharge 1 month ago, as he was doing well on that combination of medications, and per her CRR staff worsened after some of his previous medications (mirtazapine, clonidine, and alprazolam) were resumed shortly after discharge. Spoke with his outpatient psychiatrist to coordinate care regarding medications. -Continue perphenazine 4 mg every morning and 8 mg q. 1700 hrs., temazepam 7.5 mg at bedtime, melatonin 10 mg at bedtime as needed insomnia, and benztropine 0.5 mg as needed for EPS. -Offer alprazolam 0.5 mg twice daily as needed anxiety/panic. -Treatment planning meeting to include CRR staff, his outpatient correctional counselor/case manager, and will invite outpatient psychiatrist as well, to be held after his commitment hearing tomorrow. He has been refusing recommendations for outpatient therapy for some time, and unaware of any other services available in the community currently, as clubhouse/psych rehab close due to pandemic. 12/23 -306 hearing held, now on a 305 involuntary commitment. We will need to transition back to [facility] at discharge. -Treatment planning meeting held -will send medications to [place] mail order pharmacy at discharge. -Patient indicates willingness to consider outpatient therapy, which is indicated but he has always refused in the past. -Patient has a history of abusing benzodiazepines, but also has significant distress due to tinnitus and chronic insomnia, for which temazepam has been helpful. Benefits includes observed ability to tolerate low-dose temazepam without significant side effects and efficacy of temazepam with failure of multiple other medications for sleep/anxiety/hallucinations. Risks include potential for abuse, intentional overdose, ongoing suicidality with recent suicide attempt by overdose. We attempted to mitigate these by coordinating a plan for CRR staff to hold all of the patient's medications and dispense them daily, so that he would not have access to large amounts of pills which would reduce the potential for abuse or intentional overdose. If he is not willing to do this, the risks likely outweigh the benefits, and benzodiazepines should be discontinued. -Ongoing auditory hallucinations as above; increase perphenazine to 8 mg twice daily. -Fasting labs for monitoring on an antipsychotic reviewed from 02/2019: Glucose 83, FLP all values within normal limits. -Discontinue alprazolam, in order to avoid polypharmacy and worsening confusion. 12/24 -The patient continues to believe, as he has fairly consistently over the years, that he is being persecuted by various entities, possibly in the form of humans, or possibly powerful computers or robots that are seeking his , either by murdering him or by convincing him to commit suicide. His response to questions such as, "why do you suppose they would want to do that" generally is quite concrete, and he responds by saying things such as "because they want me , that is why." -The patient's report today is that he responds favorably to diazepam, not because that medication stops him from hearing the "voices" in the "buzzing" or "chirping" sounds that he hears, but because it reduces his anxiety so he is less apt to be overwhelmed by the distress that it causes him. Staff indicate that he does seem to have responded to a as needed diazepam 5 mg dose given last evening. There is a history of benzodiazepine abuse, and at his age we are reluctant to use benzodiazepines. However, based on past experience with this patient, there is a risk of his becoming fully uncooperative and incorporating this into his delusional system. There is no question but that the patient does experience significant distress associated with his perceptual disturbances and his paranoid delusions. He is responding favorably to the temazepam at bedtime and does have a history of responding to benzodiazepines, as long as they are given in modest dosages and are carefully monitored. Accordingly, he was placed diazepam 5 mg twice a day standing dose starting today. 12/25 - Pt remains depressed and increasingly irritable over the course of his stay thus far. Pt is more reality-based in his perception of the benefit of diazepam, admitting it helps the anxiety he experiences as a result of the "head buzzing" but not the head buzzing itself. Pt does request that the diazepam be available as needed instead of scheduled, but also wishes to increase the dose to three times a day. As patient is reporting dizziness, the request to increase the frequency of the medication was declined at this time, but it will be adjusted to be available twice daily as needed. - Pt is refusing to titrate his dose of perphenazine any further as he does not believe that "any antipsychotic has even been effective so why take more of it." Will order 4mg prn dose of perphenazine which can be offered to the patient for auditory hallucinations, though it is not clear he would request or accept if offered. - Pt maintains that he "will commit suicide as soon as I leave the hospital", and this remains a significant concern given his history of serious overdose and frequent admissions 12/26 - Growing increasingly irritable, only engaging with this provider for a limited period of time today - Continue perphenazine 8mg BID, though patient has been refusing the medication - Diazepam held yesterday as patient was observed to be cheeking the medication - will not resume at this time as patient is not able to participate in conversation to discuss appropriate administration of medications 12/27 - Pt remains irritable, with limited participation in interview - Pt continues to refuse to take perphenazine as he states it is contraindicated in dementia (pt reminded that this is not a formal diagnosis, and that multiple providers are recommending the medication) - Evaluate if patient may meet criteria for medications over objection if his medication refusal continues, as it is not reasonable to assume his symptoms will improve without pharmacological interventions. - Requesting only diazepam, but remains unable to engage in conversation regarding how he can reliably take this medication appropriately 12/28 -Patient remains unwilling to take perphenazine or engage in discussion of other antipsychotic options. He has had multiple failed trials and fairly severe side effects to previous antipsychotics, and additionally has poor insight into his illness, which complicates treatment. During his last hospitalization, he had a trial of ziprasidone which was ineffective, and clozapine caused altered mental status and EPS. He ultimately tolerated perphenazine and was discharged on that medication, but is now refusing to take it. Ideally, he would be on a long-acting injectable antipsychotic, but as he is not even been willing to take oral antipsychotics, this limits his options (as there are no immediate release injectable formulations of paliperidone, risperidone, or aripiprazole). I believe he will require medications over objection if he remains unwilling to take an antipsychotic, likely starting with IM haloperidol, as it has p.o., IM, and FARAH options. -Patient does report some relief with diazepam, and at this time I believe the benefits outweigh the risks. It is obviously not a good longer term medication for him given his history of benzodiazepine abuse as well as age and cognitive impairment, but it is the only medication that gives him relief from his current symptoms and that he is willing to take, so my hope is that if we can reduce his anxiety and distress level to some degree, he will be willing to take an antipsychotic medication to target his schizophrenic symptoms. He is agreeing to take the medication dissolved in water, which decreases the risk of cheeking. We will resume 5 mg twice daily. 12/29 - Remains very irritable, limited participation - Pt continues to refuse perphenazine. He was reminded of consideration for medications over objection if he remains unwilling to engage in a conversation about appropriate medications. Pt mentioned olanzapine, but did not verbalize commitment to taking it consistently. We will order olanzapine 5mg BID and continue to offer patient appropriate medications to target his ongoing auditory hallucinations and "head buzzing" - Has been complaint with diazepam dissolved in water 12/30 - Ongoing irritability limiting engagement in interview today - Pt was aware of recommendation to increase olanzapine to 10mg daily, with ongoing titration over time. Pt only willing to take the medication in the morning, and is refusing to increase dose past 5mg. Olanzapine 10mg was ordered, with staff informed patient could be provided with 5mg if he is only willing to take this amount. Based on patient's ongoing inappropriate requests regarding treatment, it remains highly likely he will require medications over objection in order to target his continued symptoms of schizophrenia. Pt aware that this is being considered, and continues to refuse to engage in conversation regarding appropriate treatment with oral medications. - Continues to be agreeable with diazepam and temazepam - pt made aware that this is insufficient treatment for his schizophrenia diagnosis. 12/31 - Ongoing irritability, but more willing to engage in conversation today. - Pt is currently agreeable with taking 5mg of olanzapine at bedtime, but refuses to go up on the dose beyond that. First opinion for medications over objection is written in chart. Second opinion was documented in Communication Note dated 01/01/2020. 5mg IM injection of olanzapine has been ordered for refusal of oral medications. - Pt continues to request higher doses of diazepam, as he believes it is the only thing that works for his auditory hallucinations. Pt continues to be informed that dose will not be adjusted beyond 5mg BID. - Pt did take a call from his outpatient psychiatric correctional counselor/case manager today 01/01 -Received first dose of olanzapine 5 mg last evening. Will continue through weekend (3) Hematuria: 12/22 -hematuria noted on UA in the ER, has had this several times in the past as well. No sign of AMOS or UTI, and ER physician recommended outpatient follow-up with PCP, Dr. Lopez. (4) Memory changes: 12/22 -patient was seen by neurology just prior to discharge at the beginning of November; noted multiple risk factors for dementia, and recommended v itamin B12 level (1371), brain MRI to identify lesions contributing to cognitive impairment, and neuropsychological testing. She also recommended avoiding benzodiazepines. A brain MRI was done on the day of discharge and was notable for mild progressive nonspecific foci of increased T2 signal within the white matter, likely on a small vessel basis, but negative for acute intracranial findings, masses, subacute or acute infarction. He is scheduled to follow-up with Dr. Caal on 02/02/2020. 12/24 -The patient has had a number of encounters with me during the past year, but is unable to recall my name. He does note that on the psychiatrist, and today he is oriented to person, place, time and situation. When I mentioned that I had not heard him complain of right temporal pain before, he replied by saying, "I have just now started calling in a pain, because no one seems to understand how awful [the voices and noises] are." 12/25 -12/30 - Consider repeat MoCA, too irritable to participate Risk Factors Assessment Male: Yes : Yes Do You Have Access To A Gun?: No Health Problems: Yes Mental Health Diagnoses: Yes Substance Use Disorders: Yes Previous Attempt: Yes Previous Attempt; Highly Lethal: Yes Family History of Suicide: Yes Previous Psychiatric Hospitalization: Yes Hopelessness: Yes Smoker: Yes Protective Factors Assessment Mosque Beliefs: No : No Responsible for Young Children: No Employed: No Stable Relationships: No Supportive Family: No Good Rapport with Provider: Yes Interval History Identifying Information SCOTT ROBERTO is a 74-year-old M who currently lives in [facility], has a history of schizophrenia, and was admitted on 12/22/19 16:55 on a 201 voluntary commitment for suicidal ideation. He is on a 305 IOC, and had a conversion hearing 12/24/2019 to transition to involuntary inpatient commitment. Chief Complaint " They do not listen". Review of Systems Sleep Information Total Hours of Sleep: 7.75 Sleep Comments: pt on q-15 minute checks Meal Information Percent Meal Consumed - Breakfast: 100 Percent Meal Consumed - Lunch: 100 Percent Meal Consumed - Dinner: 100 Nutrition Comment: per meal record Subjective Subjective Patient was seen & assessed and interval progress reviewed with treatment team. Medications over objection thought appropriate and documented by Dr. Dorsey yesterday. Patient was voluntarily compliant with 5 mg dose of Zyprexa last evening. He is complaintive this morning is nonspecific diffuse aches and pains in his body. Reviewed his subjective response to Valium which he feels is helpful at freeing him from negative emotions. He denies that it makes him more irritable or disinhibited. Complains of poor sleep and restlessness. Most Physical Exam Psychiatric Orientation: + guarded Apperance: appropriately dressed and appropriately groomed Eye Contact: + fair eye contact Motor Behavior: steady gait and station and no abnormal motor movements Speech: normal rate/rhythm/volume of speech Affect: + blunted affect and + irritable affect Mood: + irritable mood Thought Process: + perseveration Thought Content: + preoccupation Suicidal Thoughts: + reports suicidal thoughts Homicidal Thoughts: denies homicidal thoughts Hallucinations: + auditory hallucinations Cognition: language grossly intact Insight: + impaired insight Judgement: + poor judgement Vital Signs (Past 24 Hours) Last Vital Signs Temp 36.6 C 01/02/20 06:00 Pulse 71 01/02/20 06:00 Resp 18 01/02/20 06:00 BP 128/74 01/02/20 06:00 Pulse Ox 97 12/22/19 17:35 Results & Data ([facility]) Current Inpatient Medications Current Inpatient Medications: Current Inpatient Medications Acetaminophen (Tylenol) 650 mg PO Q4H PRN PRN Reason: Headache or Minor Fever Stop: 01/21/20 16:53 Last Admin: 01/02/20 15:03 Dose: 650 mg Documented by: Al Hydrox/Mg Hydrox/Simethicone (Maalox) 30 ml PO Q4H PRN PRN Reason: GI Upset Stop: 01/21/20 16:53 Aspirin (Ecotrin Ectab) 81 mg PO DAILY MAG Stop: 01/22/20 08:59 Last Admin: 01/02/20 08:21 Dose: 81 mg Documented by: Benztropine Mesylate (Cogentin) 0.5 mg PO DAILY PRN; Protocol PRN Reason: eps Stop: 01/21/20 16:57 Bismuth Subsalicylate (Kaopectate) 15 ml PO PRN PRN PRN Reason: Loose Stool Stop: 01/21/20 16:53 Diazepam (Valium) 5 mg PO BID [facility] Stop: 01/28/20 10:29 Last Admin: 01/02/20 08:21 Dose: 5 mg Documented by: Docusate Sodium (Colace) 100 mg PO BID [facility] Stop: 01/21/20 20:59 Last Admin: 01/02/20 08:21 Dose: 100 mg Documented by: Haloperidol Lactate (Haldol) 5 mg IM Q6H PRN PRN Reason: Agitation Stop: 01/25/20 16:23 Hydroxyzine HCl (Vistaril) 50 mg PO HSZ PRN PRN Reason: Insomnia Stop: 01/21/20 16:53 Hydroxyzine HCl (Vistaril) 25 mg PO Q4H PRN PRN Reason: Anxiety Stop: 01/21/20 16:53 Magnesium Hydroxide (Milk Of Magnesia) 30 ml PO DAILY PRN PRN Reason: Constipation Stop: 01/21/20 16:53 Melatonin (Melatonin) 3 mg PO HSZ PRN; Protocol PRN Reason: Sleep Stop: 01/22/20 11:50 Olanzapine (Zyprexa) 5 mg PO Q6H PRN PRN Reason: Agitation Stop: 01/29/20 14:59 Olanzapine (Zyprexa) 5 mg PO HS MAG Stop: 01/31/20 21:59 Last Admin: 01/01/20 21:17 Dose: 5 mg Documented by: Olanzapine (Zyprexa) 5 mg IM HS PRN PRN Reason: Refusal of PO Olanzapine Stop: 01/31/20 15:44 Perphenazine (Trilafon) 8 mg PO 0900,1700 MAG Stop: 01/23/20 16:59 Last Admin: 12/30/19 08:23 Dose: Not Given Documented by: Perphenazine (Trilafon) 4 mg PO DAILY PRN PRN Reason: psychosis/AH Stop: 01/25/20 13:54 Sodium Chloride (Braxton Nasal) 1 - 2 sprays NA PRN PRN PRN Reason: Nasal Dryness/Congestion Stop: 01/21/20 16:53 Temazepam (Restoril) 7.5 mg PO HSZ MAG Stop: 01/21/20 21:59 Last Admin: 01/01/20 21:16 Dose: 7.5 mg Documented by: Mental Health & Subst Abuse Tx Psychiatrist Name of Psychiatrist: [facility] - Dr. Alves Psychiatrist's Psychiatric Appointment Comment: Telehealth Therapist Name of Therapist: None Drywall Carrier Name of Drywall Carrier: Shruti Mcbride Phone Number for Drywall Carrier: [phone] Post Discharge Appointments Primary Care Physician Name Of Family Doctor: [facility] - Dr. Jeff Lopez Primary Care Provider Appointment Comment: [address], [address], [place] [address] Neurologist Name of Neurologist: [facility] - Dr. Caal Neurologist's Date of Appointment with Neurologist: 02/02/20 Time of Appointment with Neurologist: 10:00 a.m. Neurology Appointment Comment: [address], [address], [place] [address] Contact Information Discharge Discharge Address: [address] [place] [id number] Contact Information Comment: [facility] (1) Hematuria Hematuria type: other microscopic Qualified Code(s): R31.29 - Other microscopic hematuria (2) Schizophrenia Schizophrenia type: unspecified Qualified Code(s): F20.9 - Schizophrenia, unspecified
[2020-01-02] MEDS: TEMAZEPAM 7.5 MG CAPSULE PO SCH (21:06)
[2020-01-02] MEDS: OLANZapine 5 MG TABLET PO SCH (21:06)
[2020-01-03] MEDS: ASPIRIN 81 MG ECTAB PO SCH (08:26)
[2020-01-03] MEDS: DOCUSATE SODIUM 100 MG CAP PO SCH ×2 (08:26→20:51)
[2020-01-03] MEDS: diazePAM 5 MG TABLET PO SCH ×2 (08:26→20:53)
--- NOTE | 2020-01-03 11:57 | Psychiatric Progress Note ---
Date of Service January 03, 2020 Impression / Recommendations Impression 74-year-old male with schizophrenia who lives at the [facility], is on a 305 IOC, discharged from our unit 1 month ago after a serious suicide attempt by acetaminophen overdose, who presented requesting hospitalization due to suicidal thoughts with a plan to overdose in the context of worsening auditory hallucinations, including a loud buzzing sound and command auditory hallucinations to kill himself. His psychotic symptoms have been refractory to treatment and very challenging to treat, and during his last hospitalization he was here for > 1 month and had numerous medication trials, with poor response/severe side effects to multiple antipsychotics. Multiple medications were discontinued here but then restarted shortly after discharge, and [facility] staff noted that his mental state worsened when they were resumed. He has had ongoing conflict with the [facility] staff, and although he had agreed to allow them to hold all of his medications for safety, he did not follow through on this and was keeping some of his medications in his room, and obvious safety concern given his history of abusing benzodiazepines and overdoses. He had a 306 conversion hearing and is now on a 305 involuntary inpatient admission. A meeting has been held with the [facility] staff, patient's heel caser, and members of our treatment team. On admission, we resumed perphenazine and temazepam, the medication regimen he was on at the time of discharge, as he was doing well on that combination of meds, but he is now unfortunately refusing the antipsychotic. Diazepam was added as patient reports it is helpful for his anxiety; but stopped after he refused to swallow the pills and appeared to be cheeking the medication. It had been resumed when patient agreed to take the medication dissolved in water. Pt remains inconsistent with reports of willingness for oral antipsychotics at appropriate therapeutic doses, therefore two psychiatrist opinions for medication over objection are being added to the patient's chart. 5mg of IM olanzapine has been ordered for refusal of oral medications. Inpatient treatment is medically necessary due to the severity of symptoms and risk for suicide if discharged. (1) Suicidal ideation: 5/6 -every 15 minute checks for safety. -Continue inpatient treatment, signed in voluntarily but as he is on a 305 IOC, we will have a 3 of 6 conversion hearing tomorrow. Patient advised and aware. -Encourage group attendance, work on healthy coping skills and discharge safety plan. 5/7 -SI continues in response to command auditory hallucinations and loud buzzing noise. 12/24 -Today the patient describes hearing human voices that command him to commit suicide. He expresses suicidal intent, that he says will become active when he leaves the hospital, but then adds that he does not have the means. He points to the fact that he tried taking an overdose of [id number] medicines and did not , and he adds, "You doctors will not give me [lethal drugs)." He adds that he has considered attempting to kill himself by taking rat poison, and perhaps an advisedly I explained to him that rat poison includes and emetic so that all that would do is make him feel very sick. 12/25 - States today "I will commit suicide as soon as I leave the hospital." 12/26 - 12/27 - Remains suicidal, unwilling to participate in safety planning conversations 12/31 - Ongoing, daily suicidality 01/01 -no change (2) Schizophrenia: 12/22 -resume medication regimen he was on at the time of discharge 1 month ago, as he was doing well on that combination of medications, and per her CRR staff worsened after some of his previous medications (mirtazapine, clonidine, and alprazolam) were resumed shortly after discharge. Spoke with his outpatient psychiatrist to coordinate care regarding medications. -Continue perphenazine 4 mg every morning and 8 mg q. 1700 hrs., temazepam 7.5 mg at bedtime, melatonin 10 mg at bedtime as needed insomnia, and benztropine 0.5 mg as needed for EPS. -Offer alprazolam 0.5 mg twice daily as needed anxiety/panic. -Treatment planning meeting to include CRR staff, his outpatient heel caser, and will invite outpatient psychiatrist as well, to be held after his commitment hearing tomorrow. He has been refusing recommendations for outpatient therapy for some time, and unaware of any other services available in the community currently, as clubhouse/psych rehab close due to pandemic. 12/23 -306 hearing held, now on a 305 involuntary commitment. We will need to transition back to [facility] at discharge. -Treatment planning meeting held -will send medications to [place] mail order pharmacy at discharge. -Patient indicates willingness to consider outpatient therapy, which is indicated but he has always refused in the past. -Patient has a history of abusing benzodiazepines, but also has significant distress due to tinnitus and chronic insomnia, for which temazepam has been helpful. Benefits includes observed ability to tolerate low-dose temazepam without significant side effects and efficacy of temazepam with failure of multiple other medications for sleep/anxiety/hallucinations. Risks include potential for abuse, intentional overdose, ongoing suicidality with recent suicide attempt by overdose. We attempted to mitigate these by coordinating a plan for CRR staff to hold all of the patient's medications and dispense them daily, so that he would not have access to large amounts of pills which would reduce the potential for abuse or intentional overdose. If he is not willing to do this, the risks likely outweigh the benefits, and benzodiazepines should be discontinued. -Ongoing auditory hallucinations as above; increase perphenazine to 8 mg twice daily. -Fasting labs for monitoring on an antipsychotic reviewed from 02/2019: Glucose 83, FLP all values within normal limits. -Discontinue alprazolam, in order to avoid polypharmacy and worsening confusion. 12/24 -The patient continues to believe, as he has fairly consistently over the years, that he is being persecuted by various entities, possibly in the form of humans, or possibly powerful computers or robots that are seeking his , either by murdering him or by convincing him to commit suicide. His response to questions such as, "why do you suppose they would want to do that" generally is quite concrete, and he responds by saying things such as "because they want me , that is why." -The patient's report today is that he responds favorably to diazepam, not because that medication stops him from hearing the "voices" in the "buzzing" or "chirping" sounds that he hears, but because it reduces his anxiety so he is less apt to be overwhelmed by the distress that it causes him. Staff indicate that he does seem to have responded to a as needed diazepam 5 mg dose given last evening. There is a history of benzodiazepine abuse, and at his age we are reluctant to use benzodiazepines. However, based on past experience with this patient, there is a risk of his becoming fully uncooperative and incorporating this into his delusional system. There is no question but that the patient does experience significant distress associated with his perceptual disturbances and his paranoid delusions. He is responding favorably to the temazepam at bedtime and does have a history of responding to benzodiazepines, as long as they are given in modest dosages and are carefully monitored. Accordingly, he was placed diazepam 5 mg twice a day standing dose starting today. 12/25 - Pt remains depressed and increasingly irritable over the course of his stay thus far. Pt is more reality-based in his perception of the benefit of diazepam, admitting it helps the anxiety he experiences as a result of the "head buzzing" but not the head buzzing itself. Pt does request that the diazepam be available as needed instead of scheduled, but also wishes to increase the dose to three times a day. As patient is reporting dizziness, the request to increase the frequency of the medication was declined at this time, but it will be adjusted to be available twice daily as needed. - Pt is refusing to titrate his dose of perphenazine any further as he does not believe that "any antipsychotic has even been effective so why take more of it." Will order 4mg prn dose of perphenazine which can be offered to the patient for auditory hallucinations, though it is not clear he would request or accept if offered. - Pt maintains that he "will commit suicide as soon as I leave the hospital", and this remains a significant concern given his history of serious overdose and frequent admissions 12/26 - Growing increasingly irritable, only engaging with this provider for a limited period of time today - Continue perphenazine 8mg BID, though patient has been refusing the medication - Diazepam held yesterday as patient was observed to be cheeking the medication - will not resume at this time as patient is not able to participate in conversation to discuss appropriate administration of medications 12/27 - Pt remains irritable, with limited participation in interview - Pt continues to refuse to take perphenazine as he states it is contraindicated in dementia (pt reminded that this is not a formal diagnosis, and that multiple providers are recommending the medication) - Evaluate if patient may meet criteria for medications over objection if his medication refusal continues, as it is not reasonable to assume his symptoms will improve without pharmacological interventions. - Requesting only diazepam, but remains unable to engage in conversation regarding how he can reliably take this medication appropriately 12/28 -Patient remains unwilling to take perphenazine or engage in discussion of other antipsychotic options. He has had multiple failed trials and fairly severe side effects to previous antipsychotics, and additionally has poor insight into his illness, which complicates treatment. During his last hospitalization, he had a trial of ziprasidone which was ineffective, and clozapine caused altered mental status and EPS. He ultimately tolerated perphenazine and was discharged on that medication, but is now refusing to take it. Ideally, he would be on a long-acting injectable antipsychotic, but as he is not even been willing to take oral antipsychotics, this limits his options (as there are no immediate release injectable formulations of paliperidone, risperidone, or aripiprazole). I believe he will require medications over objection if he remains unwilling to take an antipsychotic, likely starting with IM haloperidol, as it has p.o., IM, and FARAH options. -Patient does report some relief with diazepam, and at this time I believe the benefits outweigh the risks. It is obviously not a good longer term medication for him given his history of benzodiazepine abuse as well as age and cognitive impairment, but it is the only medication that gives him relief from his current symptoms and that he is willing to take, so my hope is that if we can reduce his anxiety and distress level to some degree, he will be willing to take an antipsychotic medication to target his schizophrenic symptoms. He is agreeing to take the medication dissolved in water, which decreases the risk of cheeking. We will resume 5 mg twice daily. 12/29 - Remains very irritable, limited participation - Pt continues to refuse perphenazine. He was reminded of consideration for medications over objection if he remains unwilling to engage in a conversation about appropriate medications. Pt mentioned olanzapine, but did not verbalize commitment to taking it consistently. We will order olanzapine 5mg BID and continue to offer patient appropriate medications to target his ongoing auditory hallucinations and "head buzzing" - Has been complaint with diazepam dissolved in water 12/30 - Ongoing irritability limiting engagement in interview today - Pt was aware of recommendation to increase olanzapine to 10mg daily, with ongoing titration over time. Pt only willing to take the medication in the morning, and is refusing to increase dose past 5mg. Olanzapine 10mg was ordered, with staff informed patient could be provided with 5mg if he is only willing to take this amount. Based on patient's ongoing inappropriate requests regarding treatment, it remains highly likely he will require medications over objection in order to target his continued symptoms of schizophrenia. Pt aware that this is being considered, and continues to refuse to engage in conversation regarding appropriate treatment with oral medications. - Continues to be agreeable with diazepam and temazepam - pt made aware that this is insufficient treatment for his schizophrenia diagnosis. 12/31 - Ongoing irritability, but more willing to engage in conversation today. - Pt is currently agreeable with taking 5mg of olanzapine at bedtime, but refuses to go up on the dose beyond that. First opinion for medications over objection is written in chart. Second opinion was documented in Communication Note dated 01/01/2020. 5mg IM injection of olanzapine has been ordered for refusal of oral medications. - Pt continues to request higher doses of diazepam, as he believes it is the only thing that works for his auditory hallucinations. Pt continues to be informed that dose will not be adjusted beyond 5mg BID. - Pt did take a call from his outpatient psychiatric heel caser today 01/01 -Received first dose of olanzapine 5 mg last evening. Will continue through weekend 01/02 -Tolerating and compliant with oral olanzapine over the weekend. He asks about Abilify today and he was educated about that agent regarding treatment effect profile and, risks and benefits. He expressed interest in considering another trial and will review records for prior response and tolerability. Abilify might be a little more helpful for mood and is available in a long- acting injectable. -His somatic preoccupations associated with his psychosis are longstanding. Will add aspirin as needed for musculoskeletal pain at his request today. Reviewed no history of allergy and already on low-dose aspirin daily. (3) Hematuria: 12/22 -hematuria noted on UA in the ER, has had this several times in the past as well. No sign of AMOS or UTI, and ER physician recommended outpatient follow-up with PCP, Dr. Lopez. (4) Memory changes: 12/22 -patient was seen by neurology just prior to discharge at the beginning of November; noted multiple risk factors for dementia, and recommended vitamin B12 level (1371), brain MRI to identify lesions contributing to cognitive impairment, and neuropsychological testing. She also recommended avoiding benzodiazepines. A brain MRI was done on the day of discharge and was notable for mild progressive nonspecific foci of increased T2 signal within the white matter, likely on a small vessel basis, but negative for acute intracranial findings, masses, subacute or acute infarction. He is scheduled to follow-up with Dr. Caal on 02/02/2020. 12/24 -The patient has had a number of encounters with me during the past year, but is unable to recall my name. He does note that on the psychiatrist, and today he is oriented to person, place, time and situation. When I mentioned that I had not heard him complain of right temporal pain before, he replied by saying, "I have just now started calling in a pain, because no one seems to understand how awful [the voices and noises] are." 12/25 -12/30 - Consider repeat MoCA, too irritable to participate Risk Factors Assessment Male: Yes : Yes Do You Have Access To A Gun?: No Health Problems: Yes Mental Health Diagnoses: Yes Substance Use Disorders: Yes Previous Attempt: Yes Previous Attempt; Highly Lethal: Yes Family History of Suicide: Yes Previous Psychiatric Hospitalization: Yes Hopelessness: Yes Smoker: Yes Protective Factors Assessment Sikhism Beliefs: No : No Responsible for Young Children: No Employed: No Stable Relationships: No Supportive Family: No Good Rapport with Provider: Yes Interval History Identifying Information SCOTT ROBERTO is a 74-year-old M who currently lives in [facility], has a history of schizophrenia, and was admitted on 12/22/19 16:55 on a 201 voluntary commitment for suicidal ideation. He is on a 305 IOC, and had a conversion hea ring 12/24/2019 to transition to involuntary inpatient commitment. Chief Complaint " I am exactly the same". Review of Systems Notes Diffuse body aches Sleep Information Total Hours of Sleep: 8.75 Sleep Comments: pt on q-15 minute checks Meal Information Percent Meal Consumed - Breakfast: 100 Percent Meal Consumed - Lunch: 100 Percent Meal Consumed - Dinner: 100 Nutrition Comment: per meal record Subjective Subjective Patient was seen & assessed and interval progress reviewed with treatment team. No acute events overnight. Did take p.o. Zyprexa last evening. Still complaining of pain and had without relief. Indicates to staff that he feels safe here and denied suicidal ideation acutely to staff yesterday. Has been isolative to room. This morning he asks for aspirin as needed for body aches. States he had vivid dreams last evening but cannot recall dream content. Denies waking up feeling anxious and describes sleep quality as okay. Asks about Abilify as a possible treatment option. He believes he was on this several years ago but unable to recall dose, duration, effect, or tolerability. Physical Exam Psychiatric Orientation: alert and + guarded Apperance: appropriately dressed and appropriately groomed Eye Contact: + fair eye contact Motor Behavior: no abnormal motor movements Speech: normal rate/rhythm/volume of speech Affect: + blunted affect "The same" Thought Process: goal directed thought process Thought Content: + preoccupation (Somatic) Suicidal Thoughts: denies suicidal thoughts Homicidal Thoughts: denies homicidal thoughts Hallucinations: + auditory hallucinations Cognition: language grossly intact Insight: + impaired insight Judgement: + poor judgement Vital Signs (Past 24 Hours) Last Vital Signs Temp 36.8 C 01/03/20 06:39 Pulse 72 01/03/20 06:40 Resp 16 01/03/20 06:39 BP 141/87 H 01/03/20 06:40 Pulse Ox 97 12/22/19 17:35 Results & Data ([facility]) Current Inpatient Medications Current Inpatient Medications: Current Inpatient Medications Acetaminophen (Tylenol) 650 mg PO Q4H PRN PRN Reason: Headache or Minor Fever Stop: 01/21/20 16:53 Last Admin: 01/02/20 21:04 Dose: 650 mg Documented by: Al Hydrox/Mg Hydrox/Simethicone (Maalox) 30 ml PO Q4H PRN PRN Reason: GI Upset Stop: 01/21/20 16:53 Aspirin (Ecotrin Ectab) 81 mg PO DAILY [facility] Stop: 01/22/20 08:59 Last Admin: 01/03/20 08:26 Dose: 81 mg Documented by: Benztropine Mesylate (Cogentin) 0.5 mg PO DAILY PRN; Protocol PRN Reason: eps Stop: 01/21/20 16:57 Bismuth Subsalicylate (Kaopectate) 15 ml PO PRN PRN PRN Reason: Loose Stool Stop: 01/21/20 16:53 Diazepam (Valium) 5 mg PO BID [facility] Stop: 01/28/20 10:29 Last Admin: 01/03/20 08:26 Dose: 5 mg Documented by: Docusate Sodium (Colace) 100 mg PO BID [facility] Stop: 01/21/20 20:59 Last Admin: 01/03/20 08:26 Dose: 100 mg Documented by: Haloperidol Lactate (Haldol) 5 mg IM Q6H PRN PRN Reason: Agitation Stop: 01/25/20 16:23 Hydroxyzine HCl (Vistaril) 50 mg PO HSZ PRN PRN Reason: Insomnia Stop: 01/21/20 16:53 Hydroxyzine HCl (Vistaril) 25 mg PO Q4H PRN PRN Reason: Anxiety Stop: 01/21/20 16:53 Magnesium Hydroxide (Milk Of Magnesia) 30 ml PO DAILY PRN PRN Reason: Constipation Stop: 01/21/20 16:53 Melatonin (Melatonin) 3 mg PO HSZ PRN; Protocol PRN Reason: Sleep Stop: 01/22/20 11:50 Olanzapine (Zyprexa) 5 mg PO Q6H PRN PRN Reason: Agitation Stop: 01/29/20 14:59 Olanzapine (Zyprexa) 5 mg PO HS MAG Stop: 01/31/20 21:59 Last Admin: 01/02/20 21:06 Dose: 5 mg Documented by: Olanzapine (Zyprexa) 5 mg IM HS PRN PRN Reason: Refusal of PO Olanzapine Stop: 01/31/20 15:44 Perphenazine (Trilafon) 8 mg PO 0900,1700 MAG Stop: 01/23/20 16:59 Last Admin: 12/30/19 08:23 Dose: Not Given Documented by: Perphenazine (Trilafon) 4 mg PO DAILY PRN PRN Reason: psychosis/AH Stop: 01/25/20 13:54 Sodium Chloride (Edmonson Nasal) 1 - 2 sprays NA PRN PRN PRN Reason: Nasal Dryness/Congestion Stop: 01/21/20 16:53 Temazepam (Restoril) 7.5 mg PO HSZ MAG Stop: 01/21/20 21:59 Last Admin: 01/02/20 21:06 Dose: 7.5 mg Documented by: Mental Health & Subst Abuse Tx Psychiatrist Name of Psychiatrist: [facility] - Dr. Alves Psychiatrist's Psychiatric Appointment Comment: Telehealth Therapist Name of Therapist: None Storage Garage Manager Name of Storage Garage Manager: Shruti Mcbride Phone Number for Storage Garage Manager: [phone] Post Discharge Appointments Primary Care Physician Name Of Family Doctor: [facility] - Dr. Jeff Lopez Primary Care Provider Appointment Comment: [address], [address], [place] [address] Neurologist Name of Neurologist: GRAZYNA Caal Neurologist's Date of Appointment with Neurologist: 02/02/20 Time of Appointment with Neurologist: 10:00 a.m. Neurology Appointment Comment: [address], [address], [place] [address] Other #1: Name of Aftercare Appointment: JERRELL BRYAN Phone Number of Aftercare Appointment: [phone] Aftercare Appointment Comment: [address], [place] [address] Contact Information Discharge Discharge Address: [address] [place] [address], [place] [address] Contact Information Comment: JERRELL BRYAN (1) Schizophrenia Schizophrenia type: unspecified Qualified Code(s): F20.9 - Schizophrenia, unspecified (2) Hematuria Hematuria type: other microscopic Qualified Code(s): R31.29 - Other microscopic hematuria
[2020-01-03] MEDS: ACETAMINOPHEN 325 MG TAB PO PRN (12:02)
[2020-01-03] MEDS: ASPIRIN/ALUM/MAGNES/CAL CARB 325 MG TAB PO PRN ×2 (12:56→21:18)
[2020-01-03] MEDS: OLANZapine 5 MG TABLET PO SCH (20:50)
[2020-01-03] MEDS: TEMAZEPAM 7.5 MG CAPSULE PO SCH (20:51)
[2020-01-04] MEDS: ASPIRIN 81 MG ECTAB PO SCH (08:30)
[2020-01-04] MEDS: DOCUSATE SODIUM 100 MG CAP PO SCH ×2 (08:30→20:51)
[2020-01-04] MEDS: diazePAM 5 MG TABLET PO SCH ×2 (08:30→20:51)
--- NOTE | 2020-01-04 09:59 | Psychiatric Progress Note ---
Date of Service January 04, 2020 Impression / Recommendations Impression 74-year-old male with schizophrenia who lives at the [facility], is on a 305 IOC, discharged from our unit 1 month ago after a serious suicide attempt by acetaminophen overdose, who presented requesting hospitalization due to suicidal thoughts with a plan to overdose in the context of worsening auditory hallucinations, including a loud buzzing sound and command auditory hallucinations to kill himself. His psychotic symptoms have been refractory to treatment and very challenging to treat, and during his last hospitalization he was here for > 1 month and had numerous medication trials, with poor response/severe side effects to multiple antipsychotics. Multiple medications were discontinued here but then restarted shortly after discharge, and alf staff noted that his mental state worsened when they were resumed. He has had ongoing conflict with the alf staff, and although he had agreed to allow them to hold all of his medications for safety, he did not follow through on this and was keeping some of his medications in his room, and obvious safety concern given his history of abusing benzodiazepines and overdoses. He had a 306 conversion hearing and is now on a 305 involuntary inpatient admission. A meeting has been held with the CRR staff, patient's watch case polisher, and members of our treatment team. On admission, we resumed perphenazine and temazepam, the medication regimen he was on at the time of discharge, as he was doing well on that combination of meds, but he is now unfortunately refusing the antipsychotic. Diazepam was added as patient reports it is helpful for his anxiety; but is now being crushed and floated in water after an episode in which he refused to swallow the pills and appeared to be cheeking the medication. Pt had most recently been compliant with olanzapine 5mg, but refused to consider titration of the medication. He has been inquiring about aripiprazole, and verbalized willingness to re-trial the medication. Pt was informed of standard dosing and likely need for titration over time. We also discussed the medication being available in an FARAH, which patient is not opposed to at this time. Inpatient treatment is medically necessary due to the severity of symptoms and risk for suicide if discharged. There are two separate documented physician opinions in the patient's chart for medications over objection. At this point, patient has been more agreeable to discussing appropriate agents. Should patient become unwilling to continue to engage in these conversations, appropriate medications over objection can be pursued. (1) Suicidal ideation: 12/22 -every 15 minute checks for safety. -Continue inpatient treatment, signed in voluntarily but as he is on a 305 IOC, we will have a 3 of 6 conversion hearing tomorrow. Patient advised and aware. -Encourage group attendance, work on healthy coping skills and discharge safety plan. 12/23 -SI continues in response to command auditory hallucinations and loud buzzing noise. 12/24 -Today the patient describes hearing human voices that command him to commit suicide. He expresses suicidal intent, that he says will become active when he leaves the hospital, but then adds that he does not have the means. He points to the fact that he tried taking an overdose of [id number] medicines and did not , and he adds, "You doctors will not give me [lethal drugs)." He adds that he has considered attempting to kill himself by taking rat poison, and perhaps an advisedly I explained to him that rat poison includes and emetic so that all that would do is make him feel very sick. 12/25 - States today "I will commit suicide as soon as I leave the hospital." 12/26 - 12/27 - Remains suicidal, unwilling to participate in safety planning conversations 12/31 - Ongoing, daily suicidality 01/01 -no change 01/03 - Reports ongoing SI related to "noise" in his head he describes as "chirping" or "radio static" (2) Schizophrenia: 12/22 -resume medication regimen he was on at the time of discharge 1 month ago, as he was doing well on that combination of medications, and per her CRR staff worsened after some of his previous medications (mirtazapine, clonidine, and alprazolam) were resumed shortly after discharge. Spoke with his outpatient psychiatrist to coordinate care regarding medications. -Continue perphenazine 4 mg every morning and 8 mg q. 1700 hrs., temazepam 7.5 mg at bedtime, melatonin 10 mg at bedtime as needed insomnia, and benztropine 0.5 mg as needed for EPS. -Offer alprazolam 0.5 mg twice daily as needed anxiety/panic. -Treatment planning meeting to include CRR staff, his outpatient watch case polisher, and will invite outpatient psychiatrist as well, to be held after his commitment hearing tomorrow. He has been refusing recommendations for outpatient therapy for some time, and unaware of any other services available in the community currently, as clubhouse/psych rehab close due to pandemic. 12/23 -306 hearing held, now on a 305 involuntary commitment. We will need to transition back to [facility] at discharge. -Treatment planning meeting held -will send medications to [facility] mail order pharmacy at discharge. -Patient indicates willingness to consider outpatient therapy, which is indicated but he has always refused in the past. -Patient has a history of abusing benzodiazepines, but also has significant distress due to tinnitus and chronic insomnia, for which temazepam has been helpful. Benefits includes observed ability to tolerate low-dose temazepam without significant side effects and efficacy of temazepam with failure of multiple other medications for sleep/anxiety/hallucinations. Risks include potential for abuse, intentional overdose, ongoing suicidality with recent moran icide attempt by overdose. We attempted to mitigate these by coordinating a plan for CRR staff to hold all of the patient's medications and dispense them daily, so that he would not have access to large amounts of pills which would reduce the potential for abuse or intentional overdose. If he is not willing to do this, the risks likely outweigh the benefits, and benzodiazepines should be discontinued. -Ongoing auditory hallucinations as above; increase perphenazine to 8 mg twice daily. -Fasting labs for monitoring on an antipsychotic reviewed from 02/2019: Glucose 83, FLP all values within normal limits. -Discontinue alprazolam, in order to avoid polypharmacy and worsening confusion. 12/24 -The patient continues to believe, as he has fairly consistently over the years, that he is being persecuted by various entities, possibly in the form of humans, or possibly powerful computers or robots that are seeking his , either by murdering him or by convincing him to commit suicide. His response to questions such as, "why do you suppose they would want to do that" generally is quite concrete, and he responds by saying things such as "because they want me , that is why." -The patient's report today is that he responds favorably to diazepam, not because that medication stops him from hearing the "voices" in the "buzzing" or "chirping" sounds that he hears, but because it reduces his anxiety so he is less apt to be overwhelmed by the distress that it causes him. Staff indicate that he does seem to have responded to a as needed diazepam 5 mg dose given last evening. There is a history of benzodiazepine abuse, and at his age we are reluctant to use benzodiazepines. However, based on past experience with this patient, there is a risk of his becoming fully uncooperative and incorporating this into his delusional system. There is no question but that the patient does experience significant distress associated with his perceptual disturbances and his paranoid delusions. He is responding favorably to the temazepam at bedtime and does have a history of responding to benzodiazepines, as long as they are given in modest dosages and are carefully monitored. Accordingly, he was placed diazepam 5 mg twice a day standing dose starting today. 12/25 - Pt remains depressed and increasingly irritable over the course of his stay thus far. Pt is more reality-based in his perception of the benefit of diazepam, admitting it helps the anxiety he experiences as a result of the "head buzzing" but not the head buzzing itself. Pt does request that the diazepam be available as needed instead of scheduled, but also wishes to increase the dose to three times a day. As patient is reporting dizziness, the request to increase the frequency of the medication was declined at this time, but it will be adjusted to be available twice daily as needed. - Pt is refusing to titrate his dose of perphenazine any further as he does not believe that "any antipsychotic has even been effective so why take more of it." Will order 4mg prn dose of perphenazine which can be offered to the patient for auditory hallucinations, though it is not clear he would request or accept if offered. - Pt maintains that he "will commit suicide as soon as I leave the hospital", and this remains a significant concern given his history of serious overdose and frequent admissions 12/26 - Growing increasingly irritable, only engaging with this provider for a limited period of time today - Continue perphenazine 8mg BID, though patient has been refusing the medication - Diazepam held yesterday as patient was observed to be cheeking the medication - will not resume at this time as patient is not able to participate in conversation to discuss appropriate administration of medications 12/27 - Pt remains irritable, with limited participation in interview - Pt continues to refuse to take perphenazine as he states it is contraindicated in dementia (pt reminded that this is not a formal diagnosis, and that multiple providers are recommending the medication) - Evaluate if patient may meet criteria for medications over objection if his medication refusal continues, as it is not reasonable to assume his symptoms will improve without pharmacological interventions. - Requesting only diazepam, but remains unable to engage in conversation regarding how he can reliably take this medication appropriately 12/28 -Patient remains unwilling to take perphenazine or engage in discussion of other antipsychotic options. He has had multiple failed trials and fairly severe side effects to previous antipsychotics, and additionally has poor insight into his illness, which complicates treatment. During his last hospitalization, he had a trial of ziprasidone which was ineffective, and clozapine caused altered mental status and EPS. He ultimately tolerated perphenazine and was discharged on that medication, but is now refusing to take it. Ideally, he would be on a long-acting injectable antipsychotic, but as he is not even been willing to take oral antipsychotics, this limits his options (as there are no immediate release injectable formulations of paliperidone, risperidone, or aripiprazole). I believe he will require medications over objection if he remains unwilling to take an antipsychotic, likely starting with IM haloperidol, as it has p.o., IM, and FARAH options. -Patient does report some relief with diazepam, and at this time I believe the benefits outweigh the risks. It is obviously not a good longer term medication for him given his history of benzodiazepine abuse as well as age and cognitive impairment, but it is the only medication that gives him relief from his current symptoms and that he is willing to take, so my hope is that if we can reduce his anxiety and distress level to some degree, he will be willing to take an antipsychotic medication to target his schizophrenic symptoms. He is agreeing to take the medication dissolved in water, which decreases the risk of cheeking. We will resume 5 mg twice daily. 12/29 - Remains very irritable, limited participation - Pt continues to refuse perphenazine. He was reminded of consideration for medications over objection if he remains unwilling to engage in a conversation about appropriate medications. Pt mentioned olanzapine, but did not verbalize commitment to taking it consistently. We will order olanzapine 5mg BID and continue to offer patient appropriate medications to target his ongoing auditory hallucinations and "head buzzing" - Has been complaint with diazepam dissolved in water 12/30 - Ongoing irritability limiting engagement in interview today - Pt was aware of recommendation to increase olanzapine to 10mg daily, with ongoing titration over time. Pt only willing to take the medication in the morning, and is refusing to increase dose past 5mg. Olanzapine 10mg was ordered, with staff informed patient could be provided with 5mg if he is only willing to take this amount. Based on patient's ongoing inappropriate requests regarding treatment, it remains highly likely he will require medications over objection in order to target his continued symptoms of schizophrenia. Pt aware that this is being considered, and continues to refuse to engage in conversation regarding appropriate treatment with oral medications. - Continues to be agreeable with diazepam and temazepam - pt made aware that this is insufficient treatment for his schizophrenia diagnosis. 12/31 - Ongoing irritability, but more willing to engage in conversation today. - Pt is currently agreeable with taking 5mg of olanzapine at bedtime, but refuses to go up on the dose beyond that. First opinion for medications over objection is written in chart. Second opinion was documented in Communication Note dated 01/01/2020. 5mg IM injection of olanzapine has been ordered for refusal of oral medications. - Pt continues to request higher doses of diazepam, as he believes it is the only thing that works for his auditory hallucinations. Pt continues to be informed that dose will not be adjusted beyond 5mg BID. - Pt did take a call from his outpatient psychiatric watch case polisher today 01/01 -Received first dose of olanzapine 5 mg last evening. Will continue through weekend 01/02 -Tolerating and compliant with oral olanzapine over the weekend. He asks about Abilify today and he was educated about that agent regarding treatment effect profile and, risks and benefits. He expressed interest in considering another trial and will review records for prior response and tolerability. Abilify might be a little more helpful for mood and is available in a long- acting injectable. -His somatic preoccupations associated with his psychosis are longstanding. Will add aspirin as needed for musculoskeletal pain at his request today. Reviewed no history of allergy and already on low-dose aspirin daily. 01/03 - Aripiprazole was reviewed in more detail today. Pt did request supplemental information regarding standard dosing and contraindications, which was printed from [facility] and provided to the patient. Pt is agreeable with re-trial of the medication. Discussed initiating at 5mg tonight, but patient was made aware of recommendation to titrate the medication to standard dosing as tolerated. At this time, patient is reporting interest in the possibility of an FARAH - and this can be discussed in greater detail over the next few days. - Pt continues to endorse auditory hallucinations and "static" or "chirping" - which he claims no medications have been particularly helpful with. Will continue to explore these reports, as they are highly linked to patient's suicidality. (3) Hematuria: 12/22 -hematuria noted on UA in the ER, has had this several times in the past as well. No sign of AMOS or UTI, and ER physician recommended outpatient follow-up with PCP, Dr. Lopez. (4) Memory changes: 12/22 -patient was seen by neurology just prior to discharge at the beginning of November; noted multiple risk factors for dementia, and recommended vitamin B12 level (1371), brain MRI to identify lesions contributing to cognitive impairment, and neuropsychological testing. She also recommended avoiding benzodiazepines. A brain MRI was done on the day of discharge and was notable for mild progressive nonspecific foci of increased T2 signal within the white matter, likely on a small vessel basis, but negative for acute intracranial findings, masses, subacute or acute infarction. He is scheduled to follow-up with Dr. Caal on 02/02/2020. 12/24 -The patient has had a number of encounters with me during the past year, but is unable to recall my name. He does note that on the psychiatrist, and today he is oriented to person, place, time and situation. When I mentioned that I had not heard him complain of right temporal pain before, he replied by saying, "I have just now started calling in a pain, because no one seems to understand how awful [the voices and noises] are." 12/25 -12/30 - Consider repeat MoCA, too irritable to participate Risk Factors Assessment Male: Yes : Yes Do You Have Access To A Gun?: No Health Problems: Yes Mental Health Diagnoses: Yes Substance Use Disorders: Yes Previous Attempt: Yes Previous Attempt; Highly Lethal: Yes Family History of Suicide: Yes Previous Psychiatric Hospitalization: Yes Hopelessness: Yes Smoker: Yes Protective Factors Assessment Restorationism Beliefs: No : No Responsible for Young Children: No Employed: No Stable Relationships: No Supportive Family: No Good Rapport with Provider: Yes Interval History Identifying Information SCOTT ROBERTO is a 74-year-old M who currently lives in [facility], has a history of schizophrenia, and was admitted on 12/22/19 16:55 on a 201 voluntary commitment for suicidal ideation. He is on a 305 IOC, and had a conversion hearing 12/24/2019 to transition to involuntary inpatient commitment. Chief Complaint "Oh. Ok." Review of Systems Notes Constitutional: denied Cardiovascular: denied Respiratory: denied Gastrointestinal: denied Neurological: denied Psychiatric: denies symptoms other than stated above Total of at least 10 systems reviewed, pertinent positives as above and in HPI. Sleep Information Total Hours of Sleep: 7.5 Sleep Comments: pt on q-15 minute checks Meal Information Percent Meal Consumed - Breakfast: 100 Percent Meal Consumed - Lunch: 100 Percent Meal Consumed - Dinner: 100 Nutrition Comment: per meal record Subjective Subjective Patient was seen & assessed and interval progress reviewed with treatment team. Staff report the patient has continued to keep mostly to himself, but was complaint with oral medications all weekend. Pt did inquire about aripiprazole, which he reported taking in the past. Pt was seen today to assess progress since admission. Pt is more cooperative with this provider today, and engages in appropriate conversation. Pt states he had been thinking about previous medication trials, and had discussed aripiprazole with the weekend rounding psychiatrist. Pt states that while he does not feel any medication has been helpful for his auditory hallucinations, the aripiprazole at least did not contribute to any side effects, which is why the patient is willing to reconsider the medication. In discussing the dosage, this providers suggested starting low and increasing as tolerated. Pt does inquire about standard dosing, and subsequently requested to see the "literature" on standard dosing as well as contraindications. Pt does agree to a 5mg dose this evening, stating "I'll take 5 and then you can inject me with 10." Pt was informed that aripiprazole is an oral medication, and was therefore agreeable to taking it by mouth. This provider did briefly discuss the potential for Abilify Maintena, which patient was not opposed to - actually stating "that sounds like a good idea." We discussed trying the oral medication first, but that the monthly injection could be discussed further. Pt does admit to ongoing SI related to "noise" which patient describes as "chirping" or "radio static", which patient states is separate from the "voices" he experiences intermittently. Pt does admits that the voices are "quieter today", but that the "noise" has been frustrating "since about 6:30 this morning." Pt states the voices have not been consistently quieter, stating "they could be twice as loud in an hour, the Zyprexa makes no difference." Pt denies other needs or concerns at this time. Physical Exam Psychiatric Orientation: alert, oriented x 3 and + guarded (superficially cooperative) Apperance: appropriately dressed and appropriately groomed Eye Contact: good eye contact Motor Behavior: no abnormal motor movements (observed while laying in bed) Speech: normal rate/rhythm/volume of speech Affect: + blunted affect and + constricted affect Mood: no irritable mood Thought Process: goal directed thought process Thought Content: + preoccupation (with specific medication considerations) and + hopelessness Suicidal Thoughts: + reports suicidal thoughts Homicidal Thoughts: denies homicidal thoughts Hallucinations: + auditory hallucinations ("voices" and "noise" (described as "chirping" or "radio static")); no visual hallucinations Cognition: attention grossly intact and language grossly intact Insight: + impaired insight Judgement: + poor judgement (though at least willing to discuss medication options today) Vital Signs (Past 24 Hours) Last Vital Signs Temp 36.4 C L 01/04/20 06:58 Pulse 82 01/04/20 06:58 Resp 18 01/04/20 06:58 BP 126/73 01/04/20 06:58 Pulse Ox 97 12/22/19 17:35 Results & Data ([facility]) Current Inpatient Medications Current Inpatient Medications: Current Inpatient Medications Acetaminophen (Tylenol) 650 mg PO Q4H PRN PRN Reason: Headache or Minor Fever Stop: 01/21/20 16:53 Last Admin: 01/03/20 12:02 Dose: 650 mg Documented by: Al Hydrox/Mg Hydrox/Simethicone (Maalox) 30 ml PO Q4H PRN PRN Reason: GI Upset Stop: 01/21/20 16:53 Aspirin (Ecotrin Ectab) 81 mg PO DAILY MAG Stop: 01/22/20 08:59 Last Admin: 01/04/20 08:30 Dose: 81 mg Documented by: Aspirin Buffered (Ascriptin) 325 mg PO Q6H PRN PRN Reason: Pain Stop: 02/02/20 11:59 Last Admin: 01/03/20 21:18 Dose: 325 mg Documented by: Benztropine Mesylate (Cogentin) 0.5 mg PO DAILY PRN; Protocol PRN Reason: eps Stop: 01/21/20 16:57 Bismuth Subsalicylate (Kaopectate) 15 ml PO PRN PRN PRN Reason: Loose Stool Stop: 01/21/20 16:53 Diazepam (Valium) 5 mg PO BID MAG Stop: 01/28/20 10:29 Last Admin: 01/04/20 08:30 Dose: 5 mg Documented by: Docusate Sodium (Colace) 100 mg PO BID MAG Stop: 01/21/20 20:59 Last Admin: 01/04/20 08:30 Dose: 100 mg Documented by: Haloperidol Lactate (Haldol) 5 mg IM Q6H PRN PRN Reason: Agitation Stop: 01/25/20 16:23 Hydroxyzine HCl (Vistaril) 50 mg PO HSZ PRN PRN Reason: Insomnia Stop: 01/21/20 16:53 Hydroxyzine HCl (Vistaril) 25 mg PO Q4H PRN PRN Reason: Anxiety Stop: 01/21/20 16:53 Magnesium Hydroxide (Milk Of Magnesia) 30 ml PO DAILY PRN PRN Reason: Constipation Stop: 01/21/20 16:53 Melatonin (Melatonin) 3 mg PO HSZ PRN; Protocol PRN Reason: Sleep Stop: 01/22/20 11:50 Olanzapine (Zyprexa) 5 mg PO Q6H PRN PRN Reason: Agitation Stop: 01/29/20 14:59 Olanzapine (Zyprexa) 5 mg PO HS MAG Stop: 01/31/20 21:59 Last Admin: 01/03/20 20:50 Dose: 5 mg Documented by: Olanzapine (Zyprexa) 5 mg IM HS PRN PRN Reason: Refusal of PO Olanzapine Stop: 01/31/20 15:44 Perphenazine (Trilafon) 8 mg PO 0900,1700 [facility] Stop: 01/23/20 16:59 Last Admin: 12/30/19 08:23 Dose: Not Given Documented by: Perphenazine (Trilafon) 4 mg PO DAILY PRN PRN Reason: psychosis/AH Stop: 01/25/20 13:54 Sodium Chloride (Obion Nasal) 1 - 2 sprays NA PRN PRN PRN Reason: Nasal Dryness/Congestion Stop: 01/21/20 16:53 Temazepam (Restoril) 7.5 mg PO HSZ MAG Stop: 01/21/20 21:59 Last Admin: 01/03/20 20:51 Dose: 7.5 mg Documented by: Mental Health & Subst Abuse Tx Psychiatrist Name of Psychiatrist: [facility] - Dr. Alves Psychiatrist's Psychiatric Appointment Comment: Telehealth Therapist Name of Therapist: None [facility] Operator Name of [facility] Operator: Shruti Mcbride Phone Number for [facility] Operator: [phone] Post Discharge Appointments Primary Care Physician Name Of Family Doctor: [facility] - Dr. Jeff Lopez Primary Care Provider Appointment Comment: [address] [facility], [address], [place] [address] Neurologist Name of Neurologist: [facility] [place] - Dr. Caal Neurologist's Date of Appointment with Neurologist: 02/02/20 Time of Appointment with Neurologist: 10:00 a.m. Neurology Appointment Comment: [address], [address], [place] [address] Other #1: Name of Aftercare Appointment: JERRELL BRYAN Phone Number of Aftercare Appointment: [phone] Aftercare Appointment Comment: [address] [place] [address], [place] [address] Contact Information Discharge Discharge Address: [address] [place] [address] Contact Information Comment: JERRELL BRYAN (1) Hematuria Hematuria type: other microscopic Qualified Code(s): R31.29 - Other microscopic hematuria (2) Schizophrenia Schizophrenia type: unspecified Qualified Code(s): F20.9 - Schizophrenia, unspecified
[2020-01-04] MEDS: TEMAZEPAM 7.5 MG CAPSULE PO SCH (20:51)
[2020-01-04] MEDS ORDERED: ARIPiprazole 5 MG TAB PO SCH (22:00)
[2020-01-05] MEDS: diazePAM 5 MG TABLET PO SCH ×2 (07:40→21:03)
[2020-01-05] MEDS: ASPIRIN 81 MG ECTAB PO SCH (07:40)
[2020-01-05] MEDS: DOCUSATE SODIUM 100 MG CAP PO SCH ×2 (07:40→21:03)
[2020-01-05] MEDS: ASPIRIN/ALUM/MAGNES/CAL CARB 325 MG TAB PO PRN (08:59)
--- NOTE | 2020-01-05 09:23 | Psychiatric Progress Note ---
Date of Service January 05, 2020 Impression / Recommendations Impression 74-year-old male with schizophrenia who lives at the [facility], is on a 305 IOC, discharged from our unit 1 month ago after a serious suicide attempt by acetaminophen overdose, who presented requesting hospitalization due to suicidal thoughts with a plan to overdose in the context of worsening auditory hallucinations, including a loud buzzing sound and command auditory hallucinations to kill himself. His psychotic symptoms have been refractory to treatment and very challenging to treat, and during his last hospitalization he was here for > 1 month and had numerous medication trials, with poor response/severe side effects to multiple antipsychotics. Multiple medications were discontinued here but then restarted shortly after discharge, and long-term staff noted that his mental state worsened when they were resumed. He has had ongoing conflict with the long-term staff, and although he had agreed to allow them to hold all of his medications for safety, he did not follow through on this and was keeping some of his medications in his room, and obvious safety concern given his history of abusing benzodiazepines and overdoses. He had a 306 conversion hearing and is now on a 305 involuntary inpatient admission. A meeting has been held with the [facility] staff, patient's foster care case manager, and members of our treatment team. On admission, we resumed perphenazine and temazepam, the medication regimen he was on at the time of discharge, as he was doing well on that combination of meds, but he is now unfortunately refusing the antipsychotic. Diazepam was added as patient reports it is helpful for his anxiety; but is now being crushed and floated in water after an episode in which he refused to swallow the pills and appeared to be cheeking the medication. Pt had most recently been compliant with olanzapine 5mg, but refused to consider titration of the medication. He has been inquiring about aripiprazole, and verbalized willingness to re-trial the medication. Pt was informed of standard dosing and likely need for titration over time. We also discussed the medication being available in an FARAH, which patient is considering but has not committed to at this time. Inpatient treatment remains medically necessary due to the severity of symptoms and risk for suicide if discharged. He continues to endorse suicidal ideation, now specifically mentioning using cyanide to end his life. There are two separate documented physician opinions in the patient's chart for medications over objection. At this point, patient has been more agreeable to discussing appropriate agents. Should patient become unwilling to continue to engage in these conversations, appropriate medications over objection can be pursued. (1) Suicidal ideation: 12/22 -every 15 minute checks for safety. -Continue inpatient treatment, signed in voluntarily but as he is on a 305 IOC, we will have a 3 of 6 conversion hearing tomorrow. Patient advised and aware. -Encourage group attendance, work on healthy coping skills and discharge safety plan. 12/23 -SI continues in response to command auditory hallucinations and loud buzzing noise. 12/24 -Today the patient describes hearing human voices that command him to commit suicide. He expresses suicidal intent, that he says will become active when he leaves the hospital, but then adds that he does not have the means. He points to the fact that he tried taking an overdose of [id number] medicines and did not , and he adds, "You doctors will not give me [lethal drugs)." He adds that he has considered attempting to kill himself by taking rat poison, and perhaps an advisedly I explained to him that rat poison includes and emetic so that all that would do is make him feel very sick. 12/25 - States today "I will commit suicide as soon as I leave the hospital." 12/26 - 12/27 - Remains suicidal, unwilling to participate in safety planning conversations 12/31 - Ongoing, daily suicidality 01/01 -no change 01/03 - Reports ongoing SI related to "noise" in his head he describes as "chirping" or "radio static" 01/04 - Pt reporting ongoing SI - reporting suicide as "just a practical solution" to all that he has been experiencing. (2) Schizophrenia: 12/22 -resume medication regimen he was on at the time of discharge 1 month ago, as he was doing well on that combination of medications, and per her CRR staff worsened after some of his previous medications (mirtazapine, clonidine, and alprazolam) were resumed shortly after discharge. Spoke with his outpatient psychiatrist to coordinate care regarding medications. -Continue perphenazine 4 mg every morning and 8 mg q. 1700 hrs., temazepam 7.5 mg at bedtime, melatonin 10 mg at bedtime as needed insomnia, and benztropine 0 .5 mg as needed for EPS. -Offer alprazolam 0.5 mg twice daily as needed anxiety/panic. -Treatment planning meeting to include CRR staff, his outpatient foster care case manager, and will invite outpatient psychiatrist as well, to be held after his commitment hearing tomorrow. He has been refusing recommendations for outpatient therapy for some time, and unaware of any other services available in the community currently, as clubhouse/psych rehab close due to pandemic. 12/23 -306 hearing held, now on a 305 involuntary commitment. We will need to transition back to [facility] at discharge. -Treatment planning meeting held -will send medications to [place] mail order pharmacy at discharge. -Patient indicates willingness to consider outpatient therapy, which is indicated but he has always refused in the past. -Patient has a history of abusing benzodiazepines, but also has significant distress due to tinnitus and chronic insomnia, for which temazepam has been helpful. Benefits includes observed ability to tolerate low-dose temazepam without significant side effects and efficacy of temazepam with failure of multiple other medications for sleep/anxiety/hallucinations. Risks include potential for abuse, intentional overdose, ongoing suicidality with recent suicide attempt by overdose. We attempted to mitigate these by coordinating a plan for CRR staff to hold all of the patient's medications and dispense them daily, so that he would not have access to large amounts of pills which would reduce the potential for abuse or intentional overdose. If he is not willing to do this, the risks likely outweigh the benefits, and benzodiazepines should be discontinued. -Ongoing auditory hallucinations as above; increase perphenazine to 8 mg twice daily. -Fasting labs for monitoring on an antipsychotic reviewed from 02/2019: Glucose 83, FLP all values within normal limits. -Discontinue alprazolam, in order to avoid polypharmacy and worsening confusion. 12/24 -The patient continues to believe, as he has fairly consistently over the years, that he is being persecuted by various entities, possibly in the form of humans, or possibly powerful computers or robots that are seeking his , either by murdering him or by convincing him to commit suicide. His response to questions such as, "why do you suppose they would want to do that" generally is quite concrete, and he responds by saying things such as "because they want me , that is why." -The patient's report today is that he responds favorably to diazepam, not because that medication stops him from hearing the "voices" in the "buzzing" or "chirping" sounds that he hears, but because it reduces his anxiety so he is less apt to be overwhelmed by the distress that it causes him. Staff indicate that he does seem to have responded to a as needed diazepam 5 mg dose given last evening. There is a history of benzodiazepine abuse, and at his age we are reluctant to use benzodiazepines. However, based on past experience with this patient, there is a risk of his becoming fully uncooperative and incorporating this into his delusional system. There is no question but that the patient does experience significant distress associated with his perceptual disturbances and his paranoid delusions. He is responding favorably to the temazepam at bedtime and does have a history of responding to benzodiazepines, as long as they are given in modest dosages and are carefully monitored. Accordingly, he was placed diazepam 5 mg twice a day standing dose starting today. 12/25 - Pt remains depressed and increasingly irritable over the course of his stay thus far. Pt is more reality-based in his perception of the benefit of diazepam, admitting it helps the anxiety he experiences as a result of the "head buzzing" but not the head buzzing itself. Pt does request that the diazepam be available as needed instead of scheduled, but also wishes to increase the dose to three times a day. As patient is reporting dizziness, the request to increase the frequency of the medication was declined at this time, but it will be adjusted to be available twice daily as needed. - Pt is refusing to titrate his dose of perphenazine any further as he does not believe that "any antipsychotic has even been effective so why take more of it." Will order 4mg prn dose of perphenazine which can be offered to the patient for auditory hallucinations, though it is not clear he would request or accept if offered. - Pt maintains that he "will commit suicide as soon as I leave the hospital", and this remains a significant concern given his history of serious overdose and frequent admissions 12/26 - Growing increasingly irritable, only engaging with this provider for a limited period of time today - Continue perphenazine 8mg BID, though patient has been refusing the medication - Diazepam held yesterday as patient was observed to be cheeking the medication - will not resume at this time as patient is not able to participate in conversation to discuss appropriate administration of medications 12/27 - Pt remains irritable, with limited participation in interview - Pt continues to refuse to take perphenazine as he states it is contraindicated in dementia (pt reminded that this is not a formal diagnosis, and that multiple providers are recommending the medication) - Evaluate if patient may meet criteria for medications over objection if his medication refusal continues, as it is not reasonable to assume his symptoms will improve without pharmacological interventions. - Requesting only diazepam, but remains unable to engage in conversation rega rding how he can reliably take this medication appropriately 12/28 -Patient remains unwilling to take perphenazine or engage in discussion of other antipsychotic options. He has had multiple failed trials and fairly severe side effects to previous antipsychotics, and additionally has poor insight into his illness, which complicates treatment. During his last hospitalization, he had a trial of ziprasidone which was ineffective, and clozapine caused altered mental status and EPS. He ultimately tolerated perphenazine and was discharged on that medication, but is now refusing to take it. Ideally, he would be on a long-acting injectable antipsychotic, but as he is not even been willing to take oral antipsychotics, this limits his options (as there are no immediate release injectable formulations of paliperidone, risperidone, or aripiprazole). I believe he will require medications over objection if he remains unwilling to take an antipsychotic, likely starting with IM haloperidol, as it has p.o., IM, and FARAH options. -Patient does report some relief with diazepam, and at this time I believe the benefits outweigh the risks. It is obviously not a good longer term medication for him given his history of benzodiazepine abuse as well as age and cognitive impairment, but it is the only medication that gives him relief from his current symptoms and that he is willing to take, so my hope is that if we can reduce his anxiety and distress level to some degree, he will be willing to take an antipsychotic medication to target his schizophrenic symptoms. He is agreeing to take the medication dissolved in water, which decreases the risk of cheeking. We will resume 5 mg twice daily. 12/29 - Remains very irritable, limited participation - Pt continues to refuse perphenazine. He was reminded of consideration for medications over objection if he remains unwilling to engage in a conversation about appropriate medications. Pt mentioned olanzapine, but did not verbalize commitment to taking it consistently. We will order olanzapine 5mg BID and continue to offer patient appropriate medications to target his ongoing auditory hallucinations and "head buzzing" - Has been complaint with diazepam dissolved in water 12/30 - Ongoing irritability limiting engagement in interview today - Pt was aware of recommendation to increase olanzapine to 10mg daily, with ongoing titration over time. Pt only willing to take the medication in the morning, and is refusing to increase dose past 5mg. Olanzapine 10mg was ordered, with staff informed patient could be provided with 5mg if he is only willing to take this amount. Based on patient's ongoing inappropriate requests regarding treatment, it remains highly likely he will require medications over objection in order to target his continued symptoms of schizophrenia. Pt aware that this is being considered, and continues to refuse to engage in conversation regarding appropriate treatment with oral medications. - Continues to be agreeable with diazepam and temazepam - pt made aware that this is insufficient treatment for his schizophrenia diagnosis. 12/31 - Ongoing irritability, but more willing to engage in conversation today. - Pt is currently agreeable with taking 5mg of olanzapine at bedtime, but refuses to go up on the dose beyond that. First opinion for medications over objection is written in chart. Second opinion was documented in Communication Note dated 01/01/2020. 5mg IM injection of olanzapine has been ordered for refusal of oral medications. - Pt continues to request higher doses of diazepam, as he believes it is the only thing that works for his auditory hallucinations. Pt continues to be informed that dose will not be adjusted beyond 5mg BID. - Pt did take a call from his outpatient psychiatric foster care case manager today 01/01 -Received first dose of olanzapine 5 mg last evening. Will continue through weekend 01/02 -Tolerating and compliant with oral olanzapine over the weekend. He asks about Abilify today and he was educated about that agent regarding treatment effect profile and, risks and benefits. He expressed interest in considering another trial and will review records for prior response and tolerability. Abilify might be a little more helpful for mood and is available in a long- acting injectable. -His somatic preoccupations associated with his psychosis are longstanding. Will add aspirin as needed for musculoskeletal pain at his request today. Reviewed no history of allergy and already on low-dose aspirin daily. 01/03 - Aripiprazole was reviewed in more detail today. Pt did request supplemental information regarding standard dosing and contraindications, which was printed from [employer] and provided to the patient. Pt is agreeable with re-trial of the medication. Discussed initiating at 5mg tonight, but patient was made aware of recommendation to titrate the medication to standard dosing as tolerated. At this time, patient is reporting interest in the possibility of an FARAH - and this can be discussed in greater detail over the next few days. - Pt continues to endorse auditory hallucinations and "static" or "chirping" - which he claims no medications have been particularly helpful with. Will continue to explore these reports, as they are highly linked to patient's suicidality. 01/04 - Pt remains agreeable with taking aripiprazole, but is only willing to take 10mg daily. Will titrate dose to 10mg this evening. He is now hesitant to consider an FARAH as he does not desire to endure the pain of the injection. Will continue to review with the patient for ongoing consideration. - Pt has been less irritable overall, but continues to make specific dictations regarding his treatment and medication recommendations. - Pt continues to report desire to return to the [facility] when discharged, but has not been able to productively discuss discharge and safety planning at this time. (3) Hematuria: 12/22 -hematuria noted on UA in the ER, has had this several times in the past as well. No sign of AMOS or UTI, and ER physician recommended outpatient follow-up with PCP, Dr. Lopez. (4) Memory changes: 12/22 -patient was seen by neurology just prior to discharge at the beginning of November; noted multiple risk factors for dementia, and recommended vitamin B12 level (1371), brain MRI to identify lesions contributing to cognitive impairment, and neuropsychological testing. She also recommended avoiding benzodiazepines. A brain MRI was done on the day of discharge and was notable for mild progressive nonspecific foci of increased T2 signal within the white matter, likely on a small vessel basis, but negative for acute intracranial findings, masses, subacute or acute infarction. He is scheduled to follow-up with Dr. Caal on 02/02/2020. 12/24 -The patient has had a number of encounters with me during the past year, but is unable to recall my name. He does note that on the psychiatrist, and today he is oriented to person, place, time and situation. When I mentioned that I had not heard him complain of right temporal pain before, he replied by saying, "I have just now started calling in a pain, because no one seems to understand how awful [the voices and noises] are." 12/25 -12/30 - Consider repeat MoCA, too irritable to participate Risk Factors Assessment Male: Yes : Yes Do You Have Access To A Gun?: No Health Problems: Yes Mental Health Diagnoses: Yes Substance Use Disorders: Yes Previous Attempt: Yes Previous Attempt; Highly Lethal: Yes Family History of Suicide: Yes Previous Psychiatric Hospitalization: Yes Hopelessness: Yes Smoker: Yes Protective Factors Assessment Sabianist Beliefs: No : No Responsible for Young Children: No Employed: No Stable Relationships: No Supportive Family: No Good Rapport with Provider: Yes Interval History Identifying Information SCOTT ROBERTO is a 74-year-old M who currently lives in [facility], has a history of schizophrenia, and was admitted on 12/22/19 16:55 on a 201 voluntary commitment for suicidal ideation. He is on a 305 IOC, and had a conversion hearing 12/24/2019 to transition to involuntary inpatient commitment. Chief Complaint "Um, I'm doing ok." Review of Systems Notes Constitutional: denied Cardiovascular: denied Respiratory: denied Gastrointestinal: denied Neurological: denied Psychiatric: denies symptoms other than stated above Total of at least 10 systems reviewed, pertinent positives as above and in HPI. Sleep Information Total Hours of Sleep: 8.75 Sleep Comments: pt on q-15 minute checks Meal Information Percent Meal Consumed - Breakfast: 100 Percent Meal Consumed - Lunch: 100 Percent Meal Consumed - Dinner: 100 Nutrition Comment: per meal record Subjective Subjective Patient was seen & assessed and interval progress reviewed with nursing and social work. Staff report the patient has been compliant with medications, having requested to switch to aripiprazole. Pt continues to attend groups and is reportedly somewhat less irritable. Pt was seen today to assess progress since admission. He denies side effects after taking the initial 5mg dose of aripiprazole last evening. He states that he is feeling "ok" today. Pt did request a handout on aripiprazole that contained common side effects of the medication. Specifically, he reports concern for "tight muscles" and "restless leg syndrome." Pt was provided with a list of common side effects, which he requested "to limit it to the top 10." We again reviewed the option for an FARAH - however, patient is now stating he does not wish to endure the pain associated with the injection as "they last time I had a shot I think it hurt for weeks." Pt continues to endorse auditory hallucinations "all the time, they never let up" and background noise he is now describing as "static". Pt states the volume of these voices/noises is generally louder in the morning, but that there is "no pattern to any of this at all." Pt reports ongoing SI related to these complaints, stating "[suicide] is just a practical solution." Pt states that he will not be "pushed around" and "if you try to give me more than 10mg I will ingest cyanide and ." Pt does indicate that his plan is to return to the [facility] when he is discharged, but is unable to participate in conversations regarding safety planning at this time. He remains superficially cooperative for the duration of our conversation, which is an improvement compared to encounters last week. He denies other needs or concerns at this time. Physical Exam Psychiatric Orientation: alert, oriented x 3 and + guarded (but superficially cooperative ) Apperance: appropriately dressed and appropriately groomed Eye Contact: good eye contact Motor Behavior: steady gait and station and no abnormal motor movements Speech: normal rate/rhythm/volume of speech Affect: + blunted affect and + constricted affect Mood: no depressed mood ("Ok") Thought Process: goal directed thought process Thought Content: + preoccupation (with specific medication requests) and + hopelessness Suicidal Thoughts: + reports suicidal thoughts, + reports suicidal plan (reporting a plan today to ingest cyanide if he is being "pushed around") and + reports suicidal intent (reporting it continues to be a "practical solution") Homicidal Thoughts: denies homicidal thoughts Hallucinations: + auditory hallucinations (ongoing "voices" and "noise"); no visual hallucinations Cognition: attention grossly intact and language grossly intact Insight: + limited insight Judgement: + limited judgement Vital Signs (Past 24 Hours) Last Vital Signs Temp 36.4 C L 01/05/20 07:00 Pulse 74 01/05/20 07:01 Resp 18 01/05/20 07:00 BP 131/75 01/05/20 07:01 Pulse Ox 97 12/22/19 17:35 Results & Data ([facility]) Current Inpatient Medications Current Inpatient Medications: Current Inpatient Medications Acetaminophen (Tylenol) 650 mg PO Q4H PRN PRN Reason: Headache or Minor Fever Stop: 01/21/20 16:53 Last Admin: 01/03/20 12:02 Dose: 650 mg Documented by: Al Hydrox/Mg Hydrox/Simethicone (Maalox) 30 ml PO Q4H PRN PRN Reason: GI Upset Stop: 01/21/20 16:53 Aripiprazole (Abilify) 5 mg PO HS MAG Stop: 02/03/20 21:59 Last Admin: 01/04/20 20:51 Dose: 5 mg Documented by: Aspirin (Ecotrin Ectab) 81 mg PO DAILY MAG Stop: 01/22/20 08:59 Last Admin: 01/05/20 07:40 Dose: 81 mg Documented by: Aspirin Buffered (Ascriptin) 325 mg PO Q6H PRN PRN Reason: Pain Stop: 02/02/20 11:59 Last Admin: 01/05/20 08:59 Dose: 325 mg Documented by: Benztropine Mesylate (Cogentin) 0.5 mg PO DAILY PRN; Protocol PRN Reason: eps Stop: 01/21/20 16:57 Bismuth Subsalicylate (Kaopectate) 15 ml PO PRN PRN PRN Reason: Loose Stool Stop: 01/21/20 16:53 Diazepam (Valium) 5 mg PO BID [facility] Stop: 01/28/20 10:29 Last Admin: 01/05/20 07:40 Dose: 5 mg Documented by: Docusate Sodium (Colace) 100 mg PO BID MAG Stop: 01/21/20 20:59 Last Admin: 01/05/20 07:40 Dose: 100 mg Documented by: Haloperidol Lactate (Haldol) 5 mg IM Q6H PRN PRN Reason: Agitation Stop: 01/25/20 16:23 Hydroxyzine HCl (Vistaril) 50 mg PO HSZ PRN PRN Reason: Insomnia Stop: 01/21/20 16:53 Hydroxyzine HCl (Vistaril) 25 mg PO Q4H PRN PRN Reason: Anxiety Stop: 01/21/20 16:53 Magnesium Hydroxide (Milk Of Magnesia) 30 ml PO DAILY PRN PRN Reason: Constipation Stop: 01/21/20 16:53 Melatonin (Melatonin) 3 mg PO HSZ PRN; Protocol PRN Reason: Sleep Stop: 01/22/20 11:50 Olanzapine (Zyprexa) 5 mg PO Q6H PRN PRN Reason: Agitation Stop: 01/29/20 14:59 Olanzapine (Zyprexa) 5 mg IM HS PRN PRN Reason: Refusal of PO Olanzapine Stop: 01/31/20 15:44 Perphenazine (Trilafon) 8 mg PO 0900,1700 MAG Stop: 01/23/20 16:59 Last Admin: 12/30/19 08:23 Dose: Not Given Documented by: Perphenazine (Trilafon) 4 mg PO DAILY PRN PRN Reason: psychosis/AH Stop: 01/25/20 13:54 Sodium Chloride (Howard Nasal) 1 - 2 sprays NA PRN PRN PRN Reason: Nasal Dryness/Congestion Stop: 01/21/20 16:53 Temazepam (Restoril) 7.5 mg PO HSZ MAG Stop: 01/21/20 21:59 Last Admin: 01/04/20 20:51 Dose: 7.5 mg Documented by: Mental Health & Subst Abuse Tx Psychiatrist Name of Psychiatrist: [facility] - Dr. Alves Psychiatrist's Psychiatric Appointment Comment: Telehealth Therapist Name of Therapist: None [employer] Name of [employer] School Librarian: Shruti Mcbride Phone Number for [employer] School Librarian: [phone] Post Discharge Appointments Primary Care Physician Name Of Family Doctor: [facility] - Dr. Jeff Lopez Primary Care Provider Appointment Comment: [address], [address], [place] [address] Neurologist Name of Neurologist: [facility] - Dr. Caal Neurologist's Date of Appointment with Neurologist: 02/02/20 Time of Appointment with Neurologist: 10:00 a.m. Neurology Appointment Comment: [address], [address], [place] [address] Other #1: Name of Aftercare Appointment: SARAHG CRTwila Phone Number of Aftercare Appointment: [phone] Aftercare Appointment Comment: [address] [place], [place] [address] [place] [address] Contact Information Discharge Discharge [address] [place] [address] Contact Information Comment: JERRELL BRYAN (1) Hematuria Hematuria type: other microscopic Qualified Code(s): R31.29 - Other microscopic hematuria (2) Schizophrenia Schizophrenia type: unspecified Qualified Code(s): F20.9 - Schizophrenia, unspecified
[2020-01-05] MEDS: TEMAZEPAM 7.5 MG CAPSULE PO SCH (21:03)
[2020-01-05] MEDS: ARIPiprazole 10 MG TAB PO SCH (21:03)
[2020-01-06] MEDS: DOCUSATE SODIUM 100 MG CAP PO SCH ×2 (09:04→20:57)
[2020-01-06] MEDS: ASPIRIN 81 MG ECTAB PO SCH (09:04)
[2020-01-06] MEDS: diazePAM 5 MG TABLET PO SCH ×2 (09:06→20:58)
--- NOTE | 2020-01-06 09:16 | Psychiatric Progress Note ---
Date of Service January 06, 2020 Impression / Recommendations Impression 74-year-old male with schizophrenia who lives at the [facility], is on a 305 IOC, discharged from our unit 1 month ago after a serious suicide attempt by acetaminophen overdose, who presented requesting hospitalization due to suicidal thoughts with a plan to overdose in the context of worsening auditory hallucinations, including a loud buzzing sound and command auditory hallucinations to kill himself. His psychotic symptoms have been refractory to treatment and very challenging to treat, and during his last hospitalization he was here for > 1 month and had numerous medication trials, with poor response/severe side effects to multiple antipsychotics. Multiple medications were discontinued here but then restarted shortly after discharge, and [facility] staff noted that his mental state worsened when they were resumed. He has had ongoing conflict with the [facility] staff, and although he had agreed to allow them to hold all of his medications for safety, he did not follow through on this and was keeping some of his medications in his room, and obvious safety concern given his history of abusing benzodiazepines and overdoses. He had a 306 conversion hearing and is now on a 305 involuntary inpatient admission. A meeting has been held with the [facility] staff, patient's employment evaluator/case manager, and members of our treatment team. On admission, we resumed perphenazine and temazepam, the medication regimen he was on at the time of discharge, as he was doing well on that combination of meds, but he is now unfortunately refusing the antipsychotic. Diazepam was added as patient reports it is helpful for his anxiety; but is now being crushed and floated in water after an episode in which he refused to swallow the pills and appeared to be cheeking the medication. Pt had most recently been compliant with olanzapine 5mg, but refused to consider titration of the medication. He has been inquiring about aripiprazole, and verbalized willingness to re-trial the medication. Pt was informed of standard dosing and likely need for titration over time. We also discussed the medication being available in an FARAH, which patient is considering but has not committed to at this time. Inpatient treatment remains medically necessary due to the severity of symptoms and risk for suicide if discharged. He denies suicidality today and is able to engage more appropriately in conversations regarding discharge and safety planning. It will be important for patient to be able to demonstrate consistency of this prior to considering discharge based on his history of frequent hospitalizations and serious suicide attempts. There are two separate documented physician opinions in the patient's chart for medications over objection. At this point, patient has been agreeable to discussing appropriate agents and has been compliant with medications. Should patient become unwilling to continue to engage in these conversations, appropriate medications over objection can be pursued. (1) Suicidal ideation: 12/22 -every 15 minute checks for safety. -Continue inpatient treatment, signed in voluntarily but as he is on a 305 IOC, we will have a 3 of 6 conversion hearing tomorrow. Patient advised and aware. -Encourage group attendance, work on healthy coping skills and discharge safety plan. 12/23 -SI continues in response to command auditory hallucinations and loud buzzing noise. 12/24 -Today the patient describes hearing human voices that command him to commit suicide. He expresses suicidal intent, that he says will become active when he leaves the hospital, but then adds that he does not have the means. He points to the fact that he tried taking an overdose of [id number] medicines and did not , and he adds, "You doctors will not give me [lethal drugs)." He adds that he has considered attempting to kill himself by taking rat poison, and perhaps an advisedly I explained to him that rat poison includes and emetic so that all that would do is make him feel very sick. 12/25 - States today "I will commit suicide as soon as I leave the hospital." 12/26 - 12/27 - Remains suicidal, unwilling to participate in safety planning conversations 12/31 - Ongoing, daily suicidality 01/01 -no change 01/03 - Reports ongoing SI related to "noise" in his head he describes as "chirping" or "radio static" 01/04 - Pt reporting ongoing SI - reporting suicide as "just a practical solution" to all that he has been experiencing. 01/05 - Denying SI, reporting feeling more comfortable to begin discussing discharge and safety plans (2) Schizophrenia: 12/22 -resume medication regimen he was on at the time of discharge 1 month ago, as he was doing well on that combination of medications, and per her [facility] staff worsened after some of his previous medications (mirtazapine, clonidine, and alprazolam) were resumed shortly after discharge. Spoke with his outpatient psychiatrist to coordinate care regarding medications. -Continue perphenazine 4 mg every morning and 8 mg q. 1700 hrs., temazepam 7.5 mg at bedtime, melatonin 10 mg at bedtime as needed insomnia, and benztropine 0.5 mg as needed for EPS. -Offer alprazolam 0.5 mg twice daily as needed anxiety/panic. -Treatment planning meeting to include [facility] staff, his outpatient employment evaluator/case manager, and will invite outpatient psychiatrist as well, to be held after his commitment hearing tomorrow. He has been refusing recommendations for outpatient therapy for some time, and unaware of any other services available in the community currently, as clubhouse/psych rehab close due to pandemic. 12/23 -306 hearing held, now on a 305 involuntary commitment. We will need to transition back to [facility] at discharge. -Treatment planning meeting held -will send medications to [place] mail order pharmacy at discharge. -Patient indicates willingness to consider outpatient therapy, which is indicated but he has always refused in the past. -Patient has a history of abusing benzodiazepines, but also has significant distress due to tinnitus and chronic insomnia, for which temazepam has been helpful. Benefits includes observed ability to tolerate low-dose temazepam without significant side effects and efficacy of temazepam with failure of multiple other medications for sleep/anxiety/hallucinations. Risks include potential for abuse, intentional overdose, ongoing suicidality with recent suicide attempt by overdose. We attempted to mitigate these by coordinating a plan for [facility] staff to hold all of the patient's medications and dispense them daily, so that he would not have access to large amounts of pills which would reduce the potential for abuse or intentional overdose. If he is not willing to do this, the risks likely outweigh the benefits, and benzodiazepines should be discontinued. -Ongoing auditory hallucinations as above; increase perphenazine to 8 mg twice daily. -Fasting labs for monitoring on an antipsychotic reviewed from 02/2019: Glucose 83, FLP all values within normal limits. -Discontinue alprazolam, in order to avoid polypharmacy and worsening confusion. 12/24 -The patient continues to believe, as he has fairly consistently over the years, that he is being persecuted by various entities, possibly in the form of humans, or possibly powerful computers or robots that are seeking his , either by murdering him or by convincing him to commit suicide. His response to questions such as, "why do you suppose they would want to do that" generally is quite concrete, and he responds by saying things such as "because they want me , that is why." -The patient's report today is that he responds favorably to diazepam, not because that medication stops him from hearing the "voices" in the "buzzing" or "chirping" sounds that he hears, but because it reduces his anxiety so he is less apt to be overwhelmed by the distress that it causes him. Staff indicate that he does seem to have responded to a as needed diazepam 5 mg dose given last evening. There is a history of benzodiazepine abuse, and at his age we are reluctant to use benzodiazepines. However, based on past experience with this patient, there is a risk of his becoming fully uncooperative and incorporating this into his delusional system. There is no question but that the patient does experience significant distress associated with his perceptual disturbances and his paranoid delusions. He is responding favorably to the temazepam at bedtime and does have a history of responding to benzodiazepines, as long as they are given in modest dosages and are carefully monitored. Accordingly, he was placed diazepam 5 mg twice a day standing dose starting today. 12/25 - Pt remains depressed and increasingly irritable over the course of his stay thus far. Pt is more reality-based in his perception of the benefit of diazepam, admitting it helps the anxiety he experiences as a result of the "head buzzing" but not the head buzzing itself. Pt does request that the diazepam be available as needed instead of scheduled, but also wishes to increase the dose to three times a day. As patient is reporting dizziness, the request to increase the frequency of the medication was declined at this time, but it will be adjusted to be available twice daily as needed. - Pt is refusing to titrate his dose of perphenazine any further as he does not believe that "any antipsychotic has even been effective so why take more of it." Will order 4mg prn dose of perphenazine which can be offered to the patient for auditory hallucinations, though it is not clear he would request or accept i f offered. - Pt maintains that he "will commit suicide as soon as I leave the hospital", and this remains a significant concern given his history of serious overdose and frequent admissions 12/26 - Growing increasingly irritable, only engaging with this provider for a limited period of time today - Continue perphenazine 8mg BID, though patient has been refusing the medication - Diazepam held yesterday as patient was observed to be cheeking the medication - will not resume at this time as patient is not able to participate in conversation to discuss appropriate administration of medications 12/27 - Pt remains irritable, with limited participation in interview - Pt continues to refuse to take perphenazine as he states it is contraindicated in dementia (pt reminded that this is not a formal diagnosis, and that multiple providers are recommending the medication) - Evaluate if patient may meet criteria for medications over objection if his medication refusal continues, as it is not reasonable to assume his symptoms will improve without pharmacological interventions. - Requesting only diazepam, but remains unable to engage in conversation regarding how he can reliably take this medication appropriately 12/28 -Patient remains unwilling to take perphenazine or engage in discussion of other antipsychotic options. He has had multiple failed trials and fairly severe side effects to previous antipsychotics, and additionally has poor insight into his illness, which complicates treatment. During his last hospitalization, he had a trial of ziprasidone which was ineffective, and clozapine caused altered mental status and EPS. He ultimately tolerated perphenazine and was discharged on that medication, but is now refusing to take it. Ideally, he would be on a long-acting injectable antipsychotic, but as he is not even been willing to take oral antipsychotics, this limits his options (as there are no immediate release injectable formulations of paliperidone, risperidone, or aripiprazole). I believe he will require medications over objection if he remains unwilling to take an antipsychotic, likely starting with IM haloperidol, as it has p.o., IM, and FARAH options. -Patient does report some relief with diazepam, and at this time I believe the benefits outweigh the risks. It is obviously not a good longer term medication for him given his history of benzodiazepine abuse as well as age and cognitive impairment, but it is the only medication that gives him relief from his current symptoms and that he is willing to take, so my hope is that if we can reduce his anxiety and distress level to some degree, he will be willing to take an antipsychotic medication to target his schizophrenic symptoms. He is agreeing to take the medication dissolved in water, which decreases the risk of cheeking. We will resume 5 mg twice daily. 12/29 - Remains very irritable, limited participation - Pt continues to refuse perphenazine. He was reminded of consideration for medications over objection if he remains unwilling to engage in a conversation about appropriate medications. Pt mentioned olanzapine, but did not verbalize commitment to taking it consistently. We will order olanzapine 5mg BID and continue to offer patient appropriate medications to target his ongoing auditory hallucinations and "head buzzing" - Has been complaint with diazepam dissolved in water 12/30 - Ongoing irritability limiting engagement in interview today - Pt was aware of recommendation to increase olanzapine to 10mg daily, with ongoing titration over time. Pt only willing to take the medication in the morning, and is refusing to increase dose past 5mg. Olanzapine 10mg was ordered, with staff informed patient could be provided with 5mg if he is only willing to take this amount. Based on patient's ongoing inappropriate requests regarding treatment, it remains highly likely he will require medications over objection in order to target his continued symptoms of schizophrenia. Pt aware that this is being considered, and continues to refuse to engage in conversation regarding appropriate treatment with oral medications. - Continues to be agreeable with diazepam and temazepam - pt made aware that this is insufficient treatment for his schizophrenia diagnosis. 12/31 - Ongoing irritability, but more willing to engage in conversation today. - Pt is currently agreeable with taking 5mg of olanzapine at bedtime, but refuses to go up on the dose beyond that. First opinion for medications over objection is written in chart. Second opinion was documented in Communication Note dated 01/01/2020. 5mg IM injection of olanzapine has been ordered for refusal of oral medications. - Pt continues to request higher doses of diazepam, as he believes it is the only thing that works for his auditory hallucinations. Pt continues to be informed that dose will not be adjusted beyond 5mg BID. - Pt did take a call from his outpatient psychiatric employment evaluator/case manager today 01/01 -Received first dose of olanzapine 5 mg last evening. Will continue through weekend 01/02 -Tolerating and compliant with oral olanzapine over the weekend. He asks about Abilify today and he was educated about that agent regarding treatment effect profile and, risks and benefits. He expressed interest in considering another trial and will review records for prior response and tolerability. Abilify might be a little more helpful for mood and is available in a long- acting injectable. -His somatic preoccupations associated with his psychosis are longstanding. Will add aspirin as needed for musculoskeletal pain at his request today. Reviewed no history of allergy and already on low-dose aspirin daily. 01/03 - Aripiprazole was reviewed in more detail today. Pt did request supplemental information regarding standard dosing and contraindications, which was printed from [employer] and provided to the patient. Pt is agreeable with re-trial of the medication. Discussed initiating at 5mg tonight, but patient was made aware of recommendation to titrate the medication to standard dosing as tolerated. At this time, patient is reporting interest in the possibility of an FARAH - and this can be discussed in greater detail over the next few days. - Pt continues to endorse auditory hallucinations and "static" or "chirping" - which he claims no medications have been particularly helpful with. Will continue to explore these reports, as they are highly linked to patient's suicidality. 01/04 - Pt remains agreeable with taking aripiprazole, but is only willing to take 10mg daily. Will titrate dose to 10mg this evening. He is now hesitant to consider an FARAH as he does not desire to endure the pain of the injection. Will continue to review with the patient for ongoing consideration. - Pt has been less irritable overall, but continues to make specific dictations regarding his treatment and medication recommendations. - Pt continues to report desire to return to the [facility] when discharged, but has not been able to productively discuss discharge and safety planning at this time. 01/05 - Continue aripiprazole 10mg daily. Pt still hesitant to consider FARAH, but can continue to offer information - Continues to be less irritable and is even brighter during interactions - joking and smiling intermittently - Pt continues to express desire to return to the [facility] after discharge. He feels more comfortable discussing discharge and safety plans as he feels his auditory hallucinations are more tolerable and suicidality has been reduced. (3) Hematuria: 12/22 -hematuria noted on UA in the ER, has had this several times in the past as well. No sign of AMOS or UTI, and ER physician recommended outpatient follow-up with PCP, Dr. Lopez. (4) Memory changes: 12/22 -patient was seen by neurology just prior to discharge at the beginning of November; noted multiple risk factors for dementia, and recommended vitamin B12 level (1371), brain MRI to identify lesions contributing to cognitive impairment, and neuropsychological testing. She also recommended avoiding benzodiazepines. A brain MRI was done on the day of discharge and was notable for mild progressive nonspecific foci of increased T2 signal within the white matter, likely on a small vessel basis, but negative for acute intracranial findings, masses, subacute or acute infarction. He is scheduled to follow-up with Dr. Caal on 02/02/2020. 12/24 -The patient has had a number of encounters with me during the past year, but is unable to recall my name. He does note that on the psychiatrist, and today he is oriented to person, place, time and situation. When I mentioned that I had not heard him complain of right temporal pain before, he replied by saying, "I have just now started calling in a pain, because no one seems to understand how awful [the voices and noises] are." 12/25 -12/30 - Consider repeat MoCA, too irritable to participate Risk Factors Assessment Male: Yes : Yes Do You Have Access To A Gun?: No Health Problems: Yes Mental Health Diagnoses: Yes Substance Use Disorders: Yes Previous Attempt: Yes Previous Attempt; Highly Lethal: Yes Family History of Suicide: Yes Previous Psychiatric Hospitalization: Yes Hopelessness: Yes Smoker: Yes Protective Factors Assessment Mosque Beliefs: No : No Responsible for Young Children: No Employed: No Stable Relationships: No Supportive Family: No Good Rapport with Provider: Yes Interval History Identifying Information SCOTT ROBERTO is a 74-year-old M who currently lives in [facility], has a history of schizophrenia, and was admitted on 12/22/19 16:55 on a 201 voluntary commitment for suicidal ideation. He is on a 305 IOC, and had a conversion hearing 12/24/2019 to transition to involuntary inpatient commitment. Chief Complaint "I'm fine". Review of Systems Notes Constitutional: denied Cardiovascular: denied Respiratory: denied Gastrointestinal: denied Neurological: denied Psychiatric: denies symptoms other than stated above Total of at least 10 systems reviewed, pertinent positives as above and in HPI. Sleep Information Total Hours of Sleep: 7 Sleep Comments: pt on q-15 minute checks Meal Information Percent Meal Consumed - Breakfast: 100 Percent Meal Consumed - Lunch: 100 Percent Meal Consumed - Dinner: 100 Nutrition Comment: per meal record Subjective Subjective Patient was seen & assessed and interval progress reviewed with treatment team. Staff report the patient has been less irritable and has been attending group programming. He rated his mood an 8/10 and "calm" last evening. Pt has been compliant with scheduled dosing of aripiprazole 10mg each evening. Pt was seen today to assess progress since admission. Pt states he is "fine" today. He reports sleeping well last evening. When discussing the aripiprazole, the patient grabs a sheet which contains several common side effects. Of all side effects listed, the patient reports only muscle stiffness - in "every muscle." Pt was reminded that his HS dosing of temazepam may be helping with this, but that he does have prn benztropine available as well should he require it. Pt reports his mood as "good", when explaining his report of 8/10 mood last evening he states "that's an average mood." Pt does admit that the auditory hallucinations are improved today. He states "the noise is fine now. I can tolerate it." He admits that "chirping" and "static" he previously described is not entirely resolved, but is at least manageable. Pt states he continues to hear voices, but that they are "only telling interesting stories" and not commanding any actions from him. Pt did not desire to provide an example of the stories they are sharing. Pt was asked about currently suicidality, which he denies "for the past two days." When asked if he would feel safe to return home, he states "I'd imagine so." Pt is able to state that he would return to the hospital if suicidality recurred. He continues to feel that he is not able to speak to anyone at the [facility] directly about his suicidality. Pt was reminded of his ability to call his employment evaluator/case manager or Dr. Alves's office regarding any concerns as well. Pt continues to report desire to return to the [facility]. When asked how many days patient feels he would need to be free of acute suicidality or distressing hallucinations in order to feel comfortable returning to the [facility], he states "I don't know, probably 5." Pt is at least agreeable with continued discussions regarding discharge planning as he agrees he is in better spirits and that his overall condition is improving. He denies other needs or concerns today. Physical Exam Psychiatric Orientation: alert, oriented x 3 and cooperative Apperance: appropriately dressed, appropriately groomed and appeared stated age Eye Contact: good eye contact Motor Behavior: steady gait and station and no abnormal motor movements Speech: normal rate/rhythm/volume of speech Affect: + blunted affect (but more interactive, smiling appropriately at times) and mood congruent with affect Mood: no depressed mood ("An average mood") Thought Process: goal directed thought process and thought association intact Thought Content: reality based without delusions; no hopelessness Suicidal Thoughts: denies suicidal thoughts Homicidal Thoughts: denies homicidal thoughts Hallucinations: + auditory hallucinations (ongoing voice and "noises"); no visual hallucinations Cognition: attention grossly intact and language grossly intact Insight: + limited insight Judgement: + limited judgement Vital Signs (Past 24 Hours) Last Vital Signs Temp 36.4 C L 01/06/20 06:52 Pulse 76 01/06/20 06:52 Resp 18 01/06/20 06:52 BP 134/64 01/06/20 06:52 Pulse Ox 97 12/22/19 17:35 Results & Data ([facility]) Current Inpatient Medications Current Inpatient Medications: Current Inpatient Medications Acetaminophen (Tylenol) 650 mg PO Q4H PRN PRN Reason: Headache or Minor Fever Stop: 01/21/20 16:53 Last Admin: 01/03/20 12:02 Dose: 650 mg Documented by: Al Hydrox/Mg Hydrox/Simethicone (Maalox) 30 ml PO Q4H PRN PRN Reason: GI Upset Stop: 01/21/20 16:53 Aripiprazole (Abilify) 10 mg PO HS [facility] Stop: 02/04/20 21:59 Last Admin: 01/05/20 21:03 Dose: 10 mg Documented by: Aspirin (Ecotrin Ectab) 81 mg PO DAILY MAG Stop: 01/22/20 08:59 Last Admin: 01/06/20 09:04 Dose: 81 mg Documented by: Aspirin Buffered (Ascriptin) 325 mg PO Q6H PRN PRN Reason: Pain Stop: 02/02/20 11:59 Last Admin: 01/05/20 08:59 Dose: 325 mg Documented by: Benztropine Mesylate (Cogentin) 0.5 mg PO DAILY PRN; Protocol PRN Reason: eps Stop: 01/21/20 16:57 Bismuth Subsalicylate (Kaopectate) 15 ml PO PRN PRN PRN Reason: Loose Stool Stop: 01/21/20 16:53 Diazepam (Valium) 5 mg PO BID MAG Stop: 01/28/20 10:29 Last Admin: 01/06/20 09:06 Dose: 5 mg Documented by: Docusate Sodium (Colace) 100 mg PO BID MAG Stop: 01/21/20 20:59 Last Admin: 01/06/20 09:04 Dose: 100 mg Documented by: Haloperidol Lactate (Haldol) 5 mg IM Q6H PRN PRN Reason: Agitation Stop: 01/25/20 16:23 Hydroxyzine HCl (Vistaril) 50 mg PO HSZ PRN PRN Reason: Insomnia Stop: 01/21/20 16:53 Hydroxyzine HCl (Vistaril) 25 mg PO Q4H PRN PRN Reason: Anxiety Stop: 01/21/20 16:53 Magnesium Hydroxide (Milk Of Magnesia) 30 ml PO DAILY PRN PRN Reason: Constipation Stop: 01/21/20 16:53 Melatonin (Melatonin) 3 mg PO HSZ PRN; Protocol PRN Reason: Sleep Stop: 01/22/20 11:50 Olanzapine (Zyprexa) 5 mg PO Q6H PRN PRN Reason: Agitation Stop: 01/29/20 14:59 Olanzapine (Zyprexa) 5 mg IM HS PRN PRN Reason: Refusal of PO Olanzapine Stop: 01/31/20 15:44 Perphenazine (Trilafon) 8 mg PO 0900,1700 MAG Stop: 01/23/20 16:59 Last Admin: 12/30/19 08:23 Dose: Not Given Documented by: Perphenazine (Trilafon) 4 mg PO DAILY PRN PRN Reason: psychosis/AH Stop: 01/25/20 13:54 Sodium Chloride ([place] Nasal) 1 - 2 sprays NA PRN PRN PRN Reason: Nasal Dryness/Congestion Stop: 01/21/20 16:53 Temazepam (Restoril) 7.5 mg PO HSZ MAG Stop: 01/21/20 21:59 Last Admin: 01/05/20 21:03 Dose: 7.5 mg Documented by: Mental Health & Subst Abuse Tx Psychiatrist Name of Psychiatrist: [facility] [place] [facility] - Dr. Alves Psychiatrist's Psychiatric Appointment Comment: Telehealth Therapist Name of Therapist: None [employer] Matcher Name of Leather Parts Matcher: Shruti Guadalupe Lowell Rae Phone Number for Leather Parts Matcher: [phone] Post Discharge Appointments Primary Care Physician Name Of Family Doctor: [facility] - Dr. Jeff Lopez Primary Care Provider Appointment Comment: [address], [address], [place] [address] Neurologist Name of Neurologist: [facility] - Dr. Caal Neurologist's Date of Appointment with Neurologist: 02/02/20 Time of Appointment with Neurologist: 10:00 a.m. Neurology Appointment Comment: [address], [address], [place] [address] Other #1: Name of Aftercare Appointment: JERRELL BRYAN Phone Number of Aftercare Appointment: [phone] Aftercare Appointment Comment: [address] [place] [address], [place] [address] Contact Information Discharge Discharge Address: [address] [place] [address], [place] [address] Contact Information Comment: JERRELL BRYAN (1) Hematuria Hematuria type: other microscopic Qualified Code(s): R31.29 - Other microscopic hematuria (2) Schizophrenia Schizophrenia type: unspecified Qualified Code(s): F20.9 - Schizophrenia, unspecified
[2020-01-06] MEDS: TEMAZEPAM 7.5 MG CAPSULE PO SCH (20:58)
[2020-01-06] MEDS: ARIPiprazole 10 MG TAB PO SCH (20:58)
[2020-01-07] MEDS: DOCUSATE SODIUM 100 MG CAP PO SCH ×2 (08:54→20:51)
[2020-01-07] MEDS: ASPIRIN 81 MG ECTAB PO SCH (08:54)
[2020-01-07] MEDS: diazePAM 5 MG TABLET PO SCH ×2 (08:56→20:52)
--- NOTE | 2020-01-07 10:24 | Psychiatric Progress Note ---
Date of Service January 07, 2020 Impression / Recommendations Impression 74-year-old male with schizophrenia who lives at the [facility], is on a 305 IOC, discharged from our unit 1 month ago after a serious suicide attempt by acetaminophen overdose, who presented requesting hospitalization due to suicidal thoughts with a plan to overdose in the context of worsening auditory hallucinations, including a loud buzzing sound and command auditory hallucinations to kill himself. His psychotic symptoms have been refractory to treatment and very challenging to treat, and during his last hospitalization he was here for > 1 month and had numerous medication trials, with poor response/severe side effects to multiple antipsychotics. Multiple medications were discontinued here but then restarted shortly after discharge, and detention staff noted that his mental state worsened when they were resumed. He has had ongoing conflict with the detention staff, and although he had agreed to allow them to hold all of his medications for safety, he did not follow through on this and was keeping some of his medications in his room, and obvious safety concern given his history of abusing benzodiazepines and overdoses. He had a 306 conversion hearing and is now on a 305 involuntary inpatient admission. A meeting has been held with the [facility]R staff, patient's case assistant, and members of our treatment team. On admission, we resumed perphenazine and temazepam, the medication regimen he was on at the time of discharge, as he was doing well on that combination of meds, but he is now unfortunately refusing the antipsychotic. Diazepam was added as patient reports it is helpful for his anxiety; but is now being crushed and floated in water after an episode in which he refused to swallow the pills and appeared to be cheeking the medication. Pt had most recently been compliant with olanzapine 5mg, but refused to consider titration of the medication. He has been inquiring about aripiprazole, and verbalized willingness to re-trial the medication. Pt was informed of standard dosing and likely need for titration over time. We also discussed the medication being available in an FARAH, which patient is considering but has not committed to at this time. Inpatient treatment remains medically necessary due to the severity of symptoms and risk for suicide if discharged without adequate coordination with his outpatient supports. He has denied suicidality for two days and is able to engage more appropriately in conversations regarding discharge and safety planning. It will be important for patient to be able to demonstrate consistency of this prior to considering discharge based on his history of frequent hospitalizations and serious suicide attempts. (1) Suicidal ideation: 12/22 -every 15 minute checks for safety. -Continue inpatient treatment, signed in voluntarily but as he is on a 305 IOC, we will have a 3 of 6 conversion hearing tomorrow. Patient advised and aware. -Encourage group attendance, work on healthy coping skills and discharge safety plan. 12/23 -SI continues in response to command auditory hallucinations and loud buzzing noise. 12/24 -Today the patient describes hearing human voices that command him to commit suicide. He expresses suicidal intent, that he says will become active when he leaves the hospital, but then adds that he does not have the means. He points to the fact that he tried taking an overdose of [id number] medicines and did not , and he adds, "You doctors will not give me [lethal drugs)." He adds that he has considered attempting to kill himself by taking rat poison, and perhaps an advisedly I explained to him that rat poison includes and emetic so that all that would do is make him feel very sick. 12/25 - States today "I will commit suicide as soon as I leave the hospital." 12/26 - 12/27 - Remains suicidal, unwilling to participate in safety planning conversations 12/31 - Ongoing, daily suicidality 01/01 -no change 01/03 - Reports ongoing SI related to "noise" in his head he describes as "chirping" or "radio static" 01/04 - Pt reporting ongoing SI - reporting suicide as "just a practical solution" to all that he has been experiencing. 01/05 - Denying SI, reporting feeling more comfortable to begin discussing discharge and safety plans 01/06 - Continues to deny SI (2) Schizophrenia: 12/22 -resume medication regimen he was on at the time of discharge 1 month ago, as he was doing well on that combination of medications, and per her CRR staff worsened after some of his previous medications (mirtazapine, clonidine, and alprazolam) were resumed shortly after discharge. Spoke with his outpatient psychiatrist to coordinate care regarding medications. -Continue perphenazine 4 mg every morning and 8 mg q. 1700 hrs., temazepam 7.5 mg at bedtime, melatonin 10 mg at bedtime as needed insomnia, and benztropine 0.5 mg as needed for EPS. -Offer alprazolam 0.5 mg twice daily as needed anxiety/panic. -Treatment planning meeting to include CRR staff, his outpatient case assistant, and will invite outpatient psychiatrist as well, to be held after his commitment hearing tomorrow. He has been refusing recommendations for outpatient therapy for some time, and unaware of any other services available in the community currently, as clubhouse/psych rehab close due to pandemic. 12/23 -306 hearing held, now on a 305 involuntary commitment. We will need to transition back to [facility] at discharge. -Treatment planning meeting held -will send medications to [facility] mail order pharmacy at discharge. -Patient indicates willingness to consider outpatient therapy, which is indicated but he has always refused in the past. -Patient has a history of abusing benzodiazepines, but also has significant distress due to tinnitus and chronic insomnia, for which temazepam has been helpful. Benefits includes observed ability to tolerate low-dose temazepam without significant side effects and efficacy of temazepam with failure of multi ple other medications for sleep/anxiety/hallucinations. Risks include potential for abuse, intentional overdose, ongoing suicidality with recent suicide attempt by overdose. We attempted to mitigate these by coordinating a plan for CRR staff to hold all of the patient's medications and dispense them daily, so that he would not have access to large amounts of pills which would reduce the potential for abuse or intentional overdose. If he is not willing to do this, the risks likely outweigh the benefits, and benzodiazepines should be discontinued. -Ongoing auditory hallucinations as above; increase perphenazine to 8 mg twice daily. -Fasting labs for monitoring on an antipsychotic reviewed from 02/2019: Glucose 83, FLP all values within normal limits. -Discontinue alprazolam, in order to avoid polypharmacy and worsening confusion. 12/24 -The patient continues to believe, as he has fairly consistently over the years, that he is being persecuted by various entities, possibly in the form of humans, or possibly powerful computers or robots that are seeking his , either by murdering him or by convincing him to commit suicide. His response to questions such as, "why do you suppose they would want to do that" generally is quite concrete, and he responds by saying things such as "because they want me , that is why." -The patient's report today is that he responds favorably to diazepam, not because that medication stops him from hearing the "voices" in the "buzzing" or "chirping" sounds that he hears, but because it reduces his anxiety so he is less apt to be overwhelmed by the distress that it causes him. Staff indicate that he does seem to have responded to a as needed diazepam 5 mg dose given last evening. There is a history of benzodiazepine abuse, and at his age we are reluctant to use benzodiazepines. However, based on past experience with this patient, there is a risk of his becoming fully uncooperative and incorporating this into his delusional system. There is no question but that the patient does experience significant distress associated with his perceptual disturbances and his paranoid delusions. He is responding favorably to the temazepam at bedtime and does have a history of responding to benzodiazepines, as long as they are given in modest dosages and are carefully monitored. Accordingly, he was placed diazepam 5 mg twice a day standing dose starting today. 12/25 - Pt remains depressed and increasingly irritable over the course of his stay thus far. Pt is more reality-based in his perception of the benefit of diazepam, admitting it helps the anxiety he experiences as a result of the "head buzzing" but not the head buzzing itself. Pt does request that the diazepam be available as needed instead of scheduled, but also wishes to increase the dose to three times a day. As patient is reporting dizziness, the request to increase the frequency of the medication was declined at this time, but it will be adjusted to be available twice daily as needed. - Pt is refusing to titrate his dose of perphenazine any further as he does not believe that "any antipsychotic has even been effective so why take more of it." Will order 4mg prn dose of perphenazine which can be offered to the patient for auditory hallucinations, though it is not clear he would request or accept if offered. - Pt maintains that he "will commit suicide as soon as I leave the hospital", and this remains a significant concern given his history of serious overdose and frequent admissions 12/26 - Growing increasingly irritable, only engaging with this provider for a limited period of time today - Continue perphenazine 8mg BID, though patient has been refusing the medication - Diazepam held yesterday as patient was observed to be cheeking the medication - will not resume at this time as patient is not able to participate in conversation to discuss appropriate administration of medications 12/27 - Pt remains irritable, with limited participation in interview - Pt continues to refuse to take perphenazine as he states it is contraindicated in dementia (pt reminded that this is not a formal diagnosis, and that multiple providers are recommending the medication) - Evaluate if patient may meet criteria for medications over objection if his medication refusal continues, as it is not reasonable to assume his symptoms will improve without pharmacological interventions. - Requesting only diazepam, but remains unable to engage in conversation regarding how he can reliably take this medication appropriately 12/28 -Patient remains unwilling to take perphenazine or engage in discussion of other antipsychotic options. He has had multiple failed trials and fairly severe side effects to previous antipsychotics, and additionally has poor insight into his illness, which complicates treatment. During his last hospitalization, he had a trial of ziprasidone which was ineffective, and clozapine caused altered mental status and EPS. He ultimately tolerated perphenazine and was discharged on that medication, but is now refusing to take it. Ideally, he would be on a long-acting injectable antipsychotic, but as he is not even been willing to take oral antipsychotics, this limits his options (as there are no immediate release injectable formulations of paliperidone, risperidone, or aripiprazole). I believe he will require medications over objection if he remains unwilling to take an antipsychotic, likely starting with IM haloperidol, as it has p.o., IM, and FARAH options. -Patient does report some relief with diazepam, and at this time I believe the benefits outweigh the risks. It is obviously not a good longer term medication for him given his history of benzodiazepine abuse as well as age and cognitive impairment, but it is the only medication that gives him relief from his current symptoms and that he is willing to take, so my hope is that if we can reduce his anxiety and distress level to some degree, he will be willing to take an antipsychotic medication to target his schizophrenic symptoms. He is agreeing to take the medication dissolved in water, which decreases the risk of cheeking. We will resume 5 mg twice daily. 12/29 - Remains very irritable, limited participation - Pt continues to refuse perphenazine. He was reminded of consideration for medications over objection if he remains unwilling to engage in a conversation about appropriate medications. Pt mentioned olanzapine, but did not verbalize commitment to taking it consistently. We will order olanzapine 5mg BID and continue to offer patient appropriate medications to target his ongoing auditory hallucinations and "head buzzing" - Has been complaint with diazepam dissolved in water 12/30 - Ongoing irritability limiting engagement in interview today - Pt was aware of recommendation to increase olanzapine to 10mg daily, with ongoing titration over time. Pt only willing to take the medication in the morning, and is refusing to increase dose past 5mg. Olanzapine 10mg was ordered, with staff informed patient could be provided with 5mg if he is only willing to take this amount. Based on patient's ongoing inappropriate requests regarding treatment, it remains highly likely he will require medications over objection in order to target his continued symptoms of schizophrenia. Pt aware that this is being considered, and continues to refuse to engage in conversation regarding appropriate treatment with oral medications. - Continues to be agreeable with diazepam and temazepam - pt made aware that this is insufficient treatment for his schizophrenia diagnosis. 12/31 - Ongoing irritability, but more willing to engage in conversation today. - Pt is currently agreeable with taking 5mg of olanzapine at bedtime, but refuses to go up on the dose beyond that. First opinion for medications over objection is written in chart. Second opinion was documented in Communication Note dated 01/01/2020. 5mg IM injection of olanzapine has been ordered for refusal of oral medications. - Pt continues to request higher doses of diazepam, as he believes it is the only thing that works for his auditory hallucinations. Pt continues to be informed that dose will not be adjusted beyond 5mg BID. - Pt did take a call from his outpatient psychiatric case assistant today 01/01 -Received first dose of olanzapine 5 mg last evening. Will continue through weekend 01/02 -Tolerating and compliant with oral olanzapine over the weekend. He asks about Abilify today and he was educated about that agent regarding treatment effect profile and, risks and benefits. He expressed interest in considering another trial and will review records for prior response and tolerability. Abilify might be a little more helpful for mood and is available in a long- acting injectable. -His somatic preoccupations associated with his psychosis are longstanding. Will add aspirin as needed for musculoskeletal pain at his request today. Reviewed no history of allergy and already on low-dose aspirin daily. 01/03 - Aripiprazole was reviewed in more detail today. Pt did request supplemental information regarding standard dosing and contraindications, which was printed from [employer] and provided to the patient. Pt is agreeable with re-trial of the medication. Discussed initiating at 5mg tonight, but patient was made aware of recommendation to titrate the medication to standard dosing as tolerated. At this time, patient is reporting interest in the possibility of an FARAH - and this can be discussed in greater detail over the next few days. - Pt continues to endorse auditory hallucinations and "static" or "chirping" - which he claims no medications have been particularly helpful with. Will continue to explore these reports, as they are highly linked to patient's suicidality. 01/04 - Pt remains agreeable with taking aripiprazole, but is only willing to take 10mg daily. Will titrate dose to 10mg this evening. He is now hesitant to consider an FARAH as he does not desire to endure the pain of the injection. Will continue to review with the patient for ongoing consideration. - Pt has been less irritable overall, but continues to make specific dictat ions regarding his treatment and medication recommendations. - Pt continues to report desire to return to the [facility]R when discharged, but has not been able to productively discuss discharge and safety planning at this time. 01/05 - Continue aripiprazole 10mg daily. Pt still hesitant to consider FARAH, but can continue to offer information - Continues to be less irritable and is even brighter during interactions - joking and smiling intermittently - Pt continues to express desire to return to the CRR after discharge. He feels more comfortable discussing discharge and safety plans as he feels his auditory hallucinations are more tolerable and suicidality has been reduced. 01/06 - Continue aripiprazole 10mg daily - patient reports willingness to consider Abilify Maintena, possibly agreeing to the injection as soon as tomorrow - Continues to be in better spirits today, reporting auditory hallucinations are more tolerable - Continues to engage in discussions regarding discharge planning - will coordinate with CRR regarding discharge date - Discontinue MNPR as patient's behavior has been appropriate over the last several days (3) Hematuria: 12/22 -hematuria noted on UA in the ER, has had this several times in the past as well. No sign of AMOS or UTI, and ER physician recommended outpatient follow-up with PCP, Dr. Lopez. (4) Memory changes: 12/22 -patient was seen by neurology just prior to discharge at the beginning of November; noted multiple risk factors for dementia, and recommended vitamin B12 level (1371), brain MRI to identify lesions contributing to cognitive impairment, and neuropsychological testing. She also recommended avoiding benzodiazepines. A brain MRI was done on the day of discharge and was notable for mild progressive nonspecific foci of increased T2 signal within the white matter, likely on a small vessel basis, but negative for acute intracranial findings, masses, subacute or acute infarction. He is scheduled to follow-up with Dr. Caal on 02/02/2020. 12/24 -The patient has had a number of encounters with me during the past year, but is unable to recall my name. He does note that on the psychiatrist, and today he is oriented to person, place, time and situation. When I mentioned that I had not heard him complain of right temporal pain before, he replied by saying, "I have just now started calling in a pain, because no one seems to understand how awful [the voices and noises] are." 12/25 -12/30 - Consider repeat MoCA, too irritable to participate Risk Factors Assessment Male: Yes : Yes Do You Have Access To A Gun?: No Health Problems: Yes Mental Health Diagnoses: Yes Substance Use Disorders: Yes Previous Attempt: Yes Previous Attempt; Highly Lethal: Yes Family History of Suicide: Yes Previous Psychiatric Hospitalization: Yes Hopelessness: Yes Smoker: Yes Protective Factors Assessment Ep[employer]opalian Beliefs: No : No Responsible for Young Children: No Employed: No Stable Relationships: No Supportive Family: No Good Rapport with Provider: Yes Interval History Identifying Information SCOTT ROBERTO is a 74-year-old M who currently lives in [facility], has a history of schizophrenia, and was admitted on 12/22/19 16:55 on a 201 voluntary commitment for suicidal ideation. He is on a 305 IOC, and had a conversion hearing 12/24/2019 to transition to involuntary inpatient commitment. Chief Complaint "I'm feeing better." Review of Systems Notes Constitutional: denied Cardiovascular: denied Respiratory: denied Gastrointestinal: denied Neurological: denied Psychiatric: denies symptoms other than stated above Total of at least 10 systems reviewed, pertinent positives as above and in HPI. Sleep Information Total Hours of Sleep: 6 Sleep Comments: pt on q-15 minute checks Meal Information Percent Meal Consumed - Breakfast: 100 Percent Meal Consumed - Lunch: 100 Percent Meal Consumed - Dinner: 100 Nutrition Comment: per meal record Subjective Subjective Patient was seen & assessed and interval progress reviewed with nursing and social work. Staff report the patient appears to have a bright affect and has been more interactive with staff. He continues to report auditory hallucinations, but states they are tolerable. Pt was seen today to assess progress since admission. Pt states he is "feeling better." When discussing his current mood, the patient states he is feeling "ready to get out of here soon." The patient states he would "like to leave by the end of the month." We discussed that discharge date would need to be coordinated with the CRR, which patient was understanding of. Pt states that he has not been having suicidal ideation and continues to verbalize willingness to return to the ED if thought would return. Pt does endorse ongoing auditory hallucinations, but states "they are actually enjoyable now." He reports they tell him "interesting stories" and that "they go on for hours." Pt does smile and brighten somewhat when he discusses these voices, but continues to decline to provide examples of the stories stating "they talk for hours, you don't have that kind of time." We did discuss concerns related to patient keeping medications in his room at the CRR. He states he is willing to have the CRR staff hold medications, but claims "I don't keep anything dangerous anyway." We discussed that for safety purposes we would be recommending the staff manage all medications. Pt denied any needs at this time. Physical Exam Psychiatric Orientation: alert, oriented x 3 and cooperative Apperance: appropriately dressed, appropriately groomed and appeared stated age Eye Contact: good eye contact Motor Behavior: steady gait and station and no abnormal motor movements Speech: normal rate/rhythm/volume of speech Affect: + blunted affect (but does brighten more frequently, joking occasionally during encounter) Mood: no depressed mood ("I'm good") Thought Process: goal directed thought process, clear/coherent thought process and + concrete thought process Thought Content: reality based without delusions; no hopelessness Suicidal Thoughts: denies suicidal thoughts and denies suicidal intent Homicidal Thoughts: denies homicidal thoughts Hallucinations: + auditory hallucinations (but reports they are not distressing, they are actually "enjoyable"); no visual hallucinations Cognition: attention grossly intact and language grossly intact Estimated Intelligence: consistent with education level Insight: + limited insight (overall, but improved since admission) Judgement: + limited judgement (overall, improved over course of admission) Vital Signs (Past 24 Hours) Last Vital Signs Temp 36.6 C 01/07/20 06:22 Pulse 69 01/07/20 06:22 Resp 18 01/07/20 06:22 BP 110/65 01/07/20 06:22 Pulse Ox 97 12/22/19 17:35 Results & Data ([facility]) Current Inpatient Medications Current Inpatient Medications: Current Inpatient Medications Acetaminophen (Tylenol) 650 mg PO Q4H PRN PRN Reason: Headache or Minor Fever Stop: 01/21/20 16:53 Last Admin: 01/03/20 12:02 Dose: 650 mg Documented by: Al Hydrox/Mg Hydrox/Simethicone (Maalox) 30 ml PO Q4H PRN PRN Reason: GI Upset Stop: 01/21/20 16:53 Aripiprazole (Abilify) 10 mg PO HS MAG Stop: 02/04/20 21:59 Last Admin: 01/06/20 20:58 Dose: 10 mg Documented by: Aspirin (Ecotrin Ectab) 81 mg PO DAILY MAG Stop: 01/22/20 08:59 Last Admin: 01/07/20 08:54 Dose: 81 mg Documented by: Aspirin Buffered (Ascriptin) 325 mg PO Q6H PRN PRN Reason: Pain Stop: 02/02/20 11:59 Last Admin: 01/05/20 08:59 Dose: 325 mg Documented by: Benztropine Mesylate (Cogentin) 0.5 mg PO DAILY PRN; Protocol PRN Reason: eps Stop: 01/21/20 16:57 Bismuth Subsalicylate (Kaopectate) 15 ml PO PRN PRN PRN Reason: Loose Stool Stop: 01/21/20 16:53 Diazepam (Valium) 5 mg PO BID [facility] Stop: 01/28/20 10:29 Last Admin: 01/07/20 08:56 Dose: 5 mg Documented by: Docusate Sodium (Colace) 100 mg PO BID MAG Stop: 01/21/20 20:59 Last Admin: 01/07/20 08:54 Dose: 100 mg Documented by: Haloperidol Lactate (Haldol) 5 mg IM Q6H PRN PRN Reason: Agitation Stop: 01/25/20 16:23 Hydroxyzine HCl (Vistaril) 50 mg PO HSZ PRN PRN Reason: Insomnia Stop: 01/21/20 16:53 Hydroxyzine HCl (Vistaril) 25 mg PO Q4H PRN PRN Reason: Anxiety Stop: 01/21/20 16:53 Magnesium Hydroxide (Milk Of Magnesia) 30 ml PO DAILY PRN PRN Reason: Constipation Stop: 01/21/20 16:53 Melatonin (Melatonin) 3 mg PO HSZ PRN; Protocol PRN Reason: Sleep Stop: 01/22/20 11:50 Olanzapine (Zyprexa) 5 mg PO Q6H PRN PRN Reason: Agitation Stop: 01/29/20 14:59 Olanzapine (Zyprexa) 5 mg IM HS PRN PRN Reason: Refusal of PO Olanzapine Stop: 01/31/20 15:44 Perphenazine (Trilafon) 8 mg PO 0900,1700 MAG Stop: 01/23/20 16:59 Last Admin: 12/30/19 08:23 Dose: Not Given Documented by: Perphenazine (Trilafon) 4 mg PO DAILY PRN PRN Reason: psychosis/AH Stop: 01/25/20 13:54 Sodium Chloride ([place] Nasal) 1 - 2 sprays NA PRN PRN PRN Reason: Nasal Dryness/Congestion Stop: 01/21/20 16:53 Temazepam (Restoril) 7.5 mg PO HSZ MAG Stop: 01/21/20 21:59 Last Admin: 01/06/20 20:58 Dose: 7.5 mg Documented by: Mental Health & Subst Abuse Tx Psychiatrist Name of Psychiatrist: [facility] - Dr. Alves Psychiatrist's Psychiatric Appointment Comment: Telehealth Therapist Name of Therapist: None Wood Barker Name of Wood Barker: Shruti Mcbride Phone Number for Wood Barker: [phone] Post Discharge Appointments Primary Care Physician Name Of Family Doctor: [facility] - Dr. Jeff Lopez Primary Care Provider Appointment Comment: [address] [facility] [facility], [address], [place], [place] [address] Neurologist Name of Neurologist: [facility] [place] - Dr. Caal Neurologist's Date of Appointment with Neurologist: 02/02/20 Time of Appointment with Neurologist: 10:00 a.m. Neurology Appointment Comment: [address], [address], [place] [address] Other #1: Name of Aftercare Appointment: JERRELL BRYAN Phone Number of Aftercare Appointment: [phone] Aftercare Appointment Comment: [address] [place] [address] [place] [address] Contact Information Discharge Discharge Address: [address] [place] [address], [place] [address] Contact Information Comment: JERRELL BRYAN (1) Schizophrenia Schizophrenia type: unspecified Qualified Code(s): F20.9 - Schizophrenia, unspecified (2) Hematuria Hematuria type: other microscopic Qualified Code(s): R31.29 - Other microscopic hematuria
[2020-01-07] MEDS: ARIPiprazole 10 MG TAB PO SCH (20:52)
[2020-01-07] MEDS: TEMAZEPAM 7.5 MG CAPSULE PO SCH (20:52)
[2020-01-08] MEDS: DOCUSATE SODIUM 100 MG CAP PO SCH ×2 (08:37→20:47)
[2020-01-08] MEDS: ASPIRIN 81 MG ECTAB PO SCH (08:37)
[2020-01-08] MEDS: diazePAM 5 MG TABLET PO SCH ×2 (08:38→20:47)
--- NOTE | 2020-01-08 09:07 | Psychiatric Progress Note ---
Date of Service January 08, 2020 Impression / Recommendations Impression 74-year-old male with schizophrenia who lives at the [facility], is on a 305 IOC, discharged from our unit 1 month ago after a serious suicide attempt by acetaminophen overdose, who presented requesting hospitalization due to suicidal thoughts with a plan to overdose in the context of worsening auditory hallucinations, including a loud buzzing sound and command auditory hallucinations to kill himself. His psychotic symptoms have been refractory to treatment and very challenging to treat, and during his last hospitalization he was here for > 1 month and had numerous medication trials, with poor response/severe side effects to multiple antipsychotics. Multiple medications were discontinued here but then restarted shortly after discharge, and alf staff noted that his mental state worsened when they were resumed. He has had ongoing conflict with the alf staff, and although he had agreed to allow them to hold all of his medications for safety, he did not follow through on this and was keeping some of his medications in his room, and obvious safety concern given his history of abusing benzodiazepines and overdoses. He had a 306 conversion hearing and is now on a 305 involuntary inpatient admission. A meeting has been held with the CRR staff, patient's nurse case manager, and members of our treatment team. On admission, we resumed perphenazine and temazepam, the medication regimen he was on at the time of discharge, as he was doing well on that combination of meds, but he is now unfortunately refusing the antipsychotic. Diazepam was added as patient reports it is helpful for his anxiety; but is now being crushed and floated in water after an episode in which he refused to swallow the pills and appeared to be cheeking the medication. Pt had most recently been compliant with olanzapine 5mg, but refused to consider titration of the medication. He has been inquiring about aripiprazole, and verbalized willingness to re-trial the medication. Pt was informed of standard dosing and likely need for titration over time. We also discussed the medication being available in an FARAH, which patient is considering but has not committed to at this time. Inpatient treatment remains medically necessary due to the severity of symptoms and risk for suicide if discharged without adequate coordination with his outpatient supports. He has denied suicidality for the past three days and is able to engage more appropriately in conversations regarding discharge and safety planning. It will be important for patient to be able to demonstrate consistency of this prior to considering discharge based on his history of frequent hospitalizations and serious suicide attempts. (1) Suicidal ideation: 12/22 -every 15 minute checks for safety. -Continue inpatient treatment, signed in voluntarily but as he is on a 305 IOC, we will have a 3 of 6 conversion hearing tomorrow. Patient advised and aware. -Encourage group attendance, work on healthy coping skills and discharge safety plan. 12/23 -SI continues in response to command auditory hallucinations and loud buzzing noise. 12/24 -Today the patient describes hearing human voices that command him to commit suicide. He expresses suicidal intent, that he says will become active when he leaves the hospital, but then adds that he does not have the means. He points to the fact that he tried taking an overdose of [id number] medicines and did not , and he adds, "You doctors will not give me [lethal drugs)." He adds that he has considered attempting to kill himself by taking rat poison, and perhaps an advisedly I explained to him that rat poison includes and emetic so that all that would do is make him feel very sick. 12/25 - States today "I will commit suicide as soon as I leave the hospital." 12/26 - 12/27 - Remains suicidal, unwilling to participate in safety planning conversations 12/31 - Ongoing, daily suicidality 01/01 -no change 01/03 - Reports ongoing SI related to "noise" in his head he describes as "chirping" or "radio static" 01/04 - Pt reporting ongoing SI - reporting suicide as "just a practical solution" to all that he has been experiencing. 01/05 - Denying SI, reporting feeling more comfortable to begin discussing discharge and safety plans 01/06 - 01/07 - Continues to deny SI (2) Schizophrenia: 12/22 -resume medication regimen he was on at the time of discharge 1 month ago, as he was doing well on that combination of medications, and per her CRR staff worsened after some of his previous medications (mirtazapine, clonidine, and alprazolam) were resumed shortly after discharge. Spoke with his outpatient psychiatrist to coordinate care regarding medications. -Continue perphenazine 4 mg every morning and 8 mg q. 1700 hrs., temazepam 7.5 mg at bedtime, melatonin 10 mg at bedtime as needed insomnia, and benztropine 0.5 mg as needed for EPS. -Offer alprazolam 0.5 mg twice daily as needed anxiety/panic. -Treatment planning meeting to include CRR staff, his outpatient nurse case manager, and will invite outpatient psychiatrist as well, to be held after his commitment hearing tomorrow. He has been refusing recommendations for outpatient therapy for some time, and unaware of any other services available in the community currently, as clubhouse/psych rehab close due to pandemic. 12/23 -306 hearing held, now on a 305 involuntary commitment. We will need to transition back to [facility] at discharge. -Treatment planning meeting held -will send medications to [facility] mail order pharmacy at discharge. -Patient indicates willingness to consider outpatient therapy, which is indicated but he has always refused in the past. -Patient has a history of abusing benzodiazepines, but also has significant distress due to tinnitus and chronic insomnia, for which temazepam has been helpful. Benefits includes observed ability to tolerate low-dose temazepam without significant side effects and efficacy of temazepam with failure of multiple other medications for sleep/anxiety/hallucinations. Risks include potential for abuse, intentional overdose, ongoing suicidality with recent suicide attempt by overdose. We attempted to mitigate these by coordinating a plan for CRR staff to hold all of the patient's medications and dispense them daily, so that he would not have access to large amounts of pills which would r educe the potential for abuse or intentional overdose. If he is not willing to do this, the risks likely outweigh the benefits, and benzodiazepines should be discontinued. -Ongoing auditory hallucinations as above; increase perphenazine to 8 mg twice daily. -Fasting labs for monitoring on an antipsychotic reviewed from 02/2019: Glucose 83, FLP all values within normal limits. -Discontinue alprazolam, in order to avoid polypharmacy and worsening confusion. 12/24 -The patient continues to believe, as he has fairly consistently over the years, that he is being persecuted by various entities, possibly in the form of humans, or possibly powerful computers or robots that are seeking his , either by murdering him or by convincing him to commit suicide. His response to questions such as, "why do you suppose they would want to do that" generally is quite concrete, and he responds by saying things such as "because they want me , that is why." -The patient's report today is that he responds favorably to diazepam, not because that medication stops him from hearing the "voices" in the "buzzing" or "chirping" sounds that he hears, but because it reduces his anxiety so he is less apt to be overwhelmed by the distress that it causes him. Staff indicate that he does seem to have responded to a as needed diazepam 5 mg dose given last evening. There is a history of benzodiazepine abuse, and at his age we are reluctant to use benzodiazepines. However, based on past experience with this patient, there is a risk of his becoming fully uncooperative and incorporating this into his delusional system. There is no question but that the patient does experience significant distress associated with his perceptual disturbances and his paranoid delusions. He is responding favorably to the temazepam at bedtime and does have a history of responding to benzodiazepines, as long as they are given in modest dosages and are carefully monitored. Accordingly, he was placed diazepam 5 mg twice a day standing dose starting today. 12/25 - Pt remains depressed and increasingly irritable over the course of his stay thus far. Pt is more reality-based in his perception of the benefit of diazepa m, admitting it helps the anxiety he experiences as a result of the "head buzzing" but not the head buzzing itself. Pt does request that the diazepam be available as needed instead of scheduled, but also wishes to increase the dose to three times a day. As patient is reporting dizziness, the request to increase the frequency of the medication was declined at this time, but it will be adjusted to be available twice daily as needed. - Pt is refusing to titrate his dose of perphenazine any further as he does not believe that "any antipsychotic has even been effective so why take more of it." Will order 4mg prn dose of perphenazine which can be offered to the patient for auditory hallucinations, though it is not clear he would request or accept if offered. - Pt maintains that he "will commit suicide as soon as I leave the hospital", and this remains a significant concern given his history of serious overdose and frequent admissions 12/26 - Growing increasingly irritable, only engaging with this provider for a limited period of time today - Continue perphenazine 8mg BID, though patient has been refusing the medication - Diazepam held yesterday as patient was observed to be cheeking the medication - will not resume at this time as patient is not able to participate in conversation to discuss appropriate administration of medications 12/27 - Pt remains irritable, with limited participation in interview - Pt continues to refuse to take perphenazine as he states it is contraindicated in dementia (pt reminded that this is not a formal diagnosis, and that multiple providers are recommending the medication) - Evaluate if patient may meet criteria for medications over objection if his medication refusal continues, as it is not reasonable to assume his symptoms will improve without pharmacological interventions. - Requesting only diazepam, but remains unable to engage in conversation regarding how he can reliably take this medication appropriately 12/28 -Patient remains unwilling to take perphenazine or engage in discussion of other antipsychotic options. He has had multiple failed trials and fairly severe side effects to previous antipsychotics, and additionally has poor insight into his illness, which complicates treatment. During his last hospitalization, he had a trial of ziprasidone which was ineffective, and clozapine caused altered mental status and EPS. He ultimately tolerated perphenazine and was discharged on that medication, but is now refusing to take it. Ideally, he would be on a long-acting injectable antipsychotic, but as he is not even been willing to take oral antipsychotics, this limits his options (as there are no immediate release injectable formulations of paliperidone, risperidone, or aripiprazole). I believe he will require medications over objection if he remains unwilling to take an antipsychotic, likely starting with IM haloperidol, as it has p.o., IM, and FARAH options. -Patient does report some relief with diazepam, and at this time I believe the benefits outweigh the risks. It is obviously not a good longer term medication for him given his history of benzodiazepine abuse as well as age and cognitive impairment, but it is the only medication that gives him relief from his current symptoms and that he is willing to take, so my hope is that if we can reduce his anxiety and distress level to some degree, he will be willing to take an antipsychotic medication to target his schizophrenic symptoms. He is agreeing to take the medication dissolved in water, which decreases the risk of cheeking. We will resume 5 mg twice daily. 12/29 - Remains very irritable, limited participation - Pt continues to refuse perphenazine. He was reminded of consideration for medications over objection if he remains unwilling to engage in a conversation about appropriate medications. Pt mentioned olanzapine, but did not verbalize commitment to taking it consistently. We will order olanzapine 5mg BID and continue to offer patient appropriate medications to target his ongoing auditory hallucinations and "head buzzing" - Has been complaint with diazepam dissolved in water 12/30 - Ongoing irritability limiting engagement in interview today - Pt was aware of recommendation to increase olanzapine to 10mg daily, with ongoing titration over time. Pt only willing to take the medication in the morning, and is refusing to increase dose past 5mg. Olanzapine 10mg was ordered, with staff informed patient could be provided with 5mg if he is only willing to take this amount. Based on patient's ongoing inappropriate requests regarding treatment, it remains highly likely he will require medications over objection in order to target his continued symptoms of schizophrenia. Pt aware that this is being considered, and continues to refuse to engage in conversation regarding appropriate treatment with oral medications. - Continues to be agreeable with diazepam and temazepam - pt made aware that this is insufficient treatment for his schizophrenia diagnosis. 12/31 - Ongoing irritability, but more willing to engage in conversation today. - Pt is currently agreeable with taking 5mg of olanzapine at bedtime, but refuses to go up on the dose beyond that. First opinion for medications over objection is written in chart. Second opinion was documented in Communication Note dated 01/01/2020. 5mg IM injection of olanzapine has been ordered for refusal of oral medications. - Pt continues to request higher doses of diazepam, as he believes it is the only thing that works for his auditory hallucinations. Pt continues to be informed that dose will not be adjusted beyond 5mg BID. - Pt did take a call from his outpatient psychiatric nurse case manager today 01/01 -Received first dose of olanzapine 5 mg last evening. Will continue through weekend 01/02 -Tolerating and compliant with oral olanzapine over the weekend. He asks about Abilify today and he was educated about that agent regarding treatment effect profile and, risks and benefits. He expressed interest in considering another trial and will review records for prior response and tolerability. Abilify might be a little more helpful for mood and is available in a long- acting injectable. -His somatic preoccupations associated with his psychosis are longstanding. Will add aspirin as needed for musculoskeletal pain at his request today. Reviewed no history of allergy and already on low-dose aspirin daily. 01/03 - Aripiprazole was reviewed in more detail today. Pt did request supplemental information regarding standard dosing and contraindications, which was printed from [employer] and provided to the patient. Pt is agreeable with re-trial of the medication. Discussed initiating at 5mg tonight, but patient was made aware of recommendation to titrate the medication to standard dosing as tolerated. At this time, patient is reporting interest in the possibility of an FARAH - and this can be discussed in greater detail over the next few days. - Pt continues to endorse auditory hallucinations and "static" or "chirping" - which he claims no medications have been particularly helpful with. Will continue to explore these reports, as they are highly linked to patient's suicidality. 01/04 - Pt remains agreeable with taking aripiprazole, but is only willing to take 10mg daily. Will titrate dose to 10mg this evening. He is now hesitant to cons ider an FARAH as he does not desire to endure the pain of the injection. Will continue to review with the patient for ongoing consideration. - Pt has been less irritable overall, but continues to make specific dictations regarding his treatment and medication recommendations. - Pt continues to report desire to return to the CRR when discharged, but has not been able to productively discuss discharge and safety planning at this time. 01/05 - Continue aripiprazole 10mg daily. Pt still hesitant to consider FARAH, but can continue to offer information - Continues to be less irritable and is even brighter during interactions - joking and smiling intermittently - Pt continues to express desire to return to the CRR after discharge. He feels more comfortable discussing discharge and safety plans as he feels his auditory hallucinations are more tolerable and suicidality has been reduced. 01/06 - Continue aripiprazole 10mg daily - patient reports willingness to consider Abilify Maintena, possibly agreeing to the injection as soon as tomorrow - Continues to be in better spirits today, reporting auditory hallucinations are more tolerable - Continues to engage in discussions regarding discharge planning - will coordinate with CRR regarding discharge date - Discontinue MNPR as patient's behavior has been appropriate over the last several days 01/07 - Continue aripiprazole 10mg daily - patient again changing his mind, now saying he is unwilling for Abilify Maintena. Should patient eventually be willing to consider, would suggest dose of 300mg IM q4 weeks. Copay was reporte d to be $15 for Madie Aleman. Oral aripiprazole 10mg tablets are available for a copay of $8. - Continue attempts to coordinate with the CRR regarding discharge plans (3) Hematuria: 12/22 -hematuria noted on UA in the ER, has had this several times in the past as well. No sign of AMOS or UTI, and ER physician recommended outpatient follow-up with PCP, Dr. Lopez. (4) Memory changes: 12/22 -patient was seen by neurology just prior to discharge at the beginning of November; noted multiple risk factors for dementia, and recommended vitamin B12 level (1371), brain MRI to identify lesions contributing to cognitive impairment, and neuropsychological testing. She also recommended avoiding benzodiazepines. A brain MRI was done on the day of discharge and was notable for mild progressive nonspecific foci of increased T2 signal within the white matter, likely on a small vessel basis, but negative for acute int racranial findings, masses, subacute or acute infarction. He is scheduled to follow-up with Dr. Caal on 02/02/2020. 12/24 -The patient has had a number of encounters with me during the past year, but is unable to recall my name. He does note that on the psychiatrist, and today he is oriented to person, place, time and situation. When I mentioned that I had not heard him complain of right temporal pain before, he replied by saying, "I have just now started calling in a pain, because no one seems to understand how awful [the voices and noises] are." 12/25 -12/30 - Consider repeat MoCA, too irritable to participate Risk Factors Assessment Male: Yes : Yes Do You Have Access To A Gun?: No Health Problems: Yes Mental Health Diagnoses: Yes Substance Use Disorders: Yes Previous Attempt: Yes Previous Attempt; Highly Lethal: Yes Family History of Suicide: Yes Previous Psychiatric Hospitalization: Yes Hopelessness: Yes Smoker: Yes Protective Factors Assessment Baptism Beliefs: No : No Responsible for Young Children: No Employed: No Stable Relationships: No Supportive Family: No Good Rapport with Provider: Yes Interval History Identifying Information SCOTT ROBERTO is a 74-year-old M who currently lives in [facility], has a history of schizophrenia, and was admitted on 12/22/19 16:55 on a 201 voluntary commitment for suicidal ideation. He is on a 305 IOC, and had a conversion hearing 12/24/2019 to transition to involuntary inpatient commitment. Chief Complaint "I'm fine, nothing new." Review of Systems Notes Constitutional: denied Cardiovascular: denied Respiratory: denied Gastrointestinal: denied Neurological: denied Psychiatric: denies symptoms other than stated above Total of at least 10 systems reviewed, pertinent positives as above and in HPI. Sleep Information Total Hours of Sleep: 6 Sleep Comments: pt on q-15 minute checks Meal Information Percent Meal Consumed - Breakfast: 100 Percent Meal Consumed - Lunch: 100 Percent Meal Consumed - Dinner: 100 Nutrition Comment: per meal record Subjective Subjective Patient was seen & assessed and interval progress reviewed with treatment team. Staff report the patient continues to be pleasant in interactions with staff. He rated his mood an 8/10 and "calm" again last evening and continues to deny SI to staff. Pt was seen today to assess progress since admission. Pt is seen along with Shereen Muhammad PA-C with patient's verbal consent. Pt states that he is "fine" and denies any new concerns today. He reports sleep and appetite remain stable. We did address the topic of Abilify Maintena, which patient is now saying he is not considering. He reporting "the pills are easier." Pt did appropriately inquire about the morales of the injection, and was surprised to learn the medication was available for a copay of $15; however, this did not make him more willing to consider the medication at this time. Pt continues to deny suicidal ideation for what is now the third day. He admits that while the auditory hallucinations are ongoing but pleasant, the background "noise" has " down." Pt engages appropriately in conversation and denies any additional needs or concerns at this time. Physical Exam Psychiatric Orientation: alert, oriented x 3 and cooperative Apperance: appropriately dressed (casually, in light pink sweater, jeans, and sandals ), appropriately groomed and appeared stated age Eye Contact: good eye contact Motor Behavior: steady gait and station and no abnormal motor movements Speech: normal rate/rhythm/volume of speech (responses continue to be brief, but consistently polite tone) Affect: + blunted affect (but does brighten intermittently during conversation) Mood: no depressed mood ("fine") Thought Process: goal directed thought process and clear/coherent thought process Thought Content: reality based without delusions; no hopelessness Suicidal Thoughts: denies suicidal thoughts and denies suicidal intent Homicidal Thoughts: denies homicidal thoughts Hallucinations: + auditory hallucinations (but not distressing, "noise" has " down"); no visual hallucinations Cognition: attention grossly intact and language grossly intact Insight: + limited insight (overall, but improved over course of admission) Judgement: + limited judgement (overall, but improved over course of admission) Vital Signs (Past 24 Hours) Last Vital Signs Temp 36.4 C L 01/08/20 06:34 Pulse 81 01/08/20 06:34 Resp 20 01/08/20 06:34 BP 117/76 01/08/20 06:34 Pulse Ox 97 12/22/19 17:35 Results & Data ([facility]) Current Inpatient Medications Current Inpatient Medications: Current Inpatient Medications Acetaminophen (Tylenol) 650 mg PO Q4H PRN PRN Reason: Headache or Minor Fever Stop: 01/21/20 16:53 Last Admin: 01/03/20 12:02 Dose: 650 mg Documented by: Al Hydrox/Mg Hydrox/Simethicone (Maalox) 30 ml PO Q4H PRN PRN Reason: GI Upset Stop: 01/21/20 16:53 Aripiprazole (Abilify) 10 mg PO HS MAG Stop: 02/04/20 21:59 Last Admin: 01/07/20 20:52 Dose: 10 mg Documented by: Aspirin (Ecotrin Ectab) 81 mg PO DAILY MAG Stop: 01/22/20 08:59 Last Admin: 01/08/20 08:37 Dose: 81 mg Documented by: Aspirin Buffered (Ascriptin) 325 mg PO Q6H PRN PRN Reason: Pain Stop: 02/02/20 11:59 Last Admin: 01/05/20 08:59 Dose: 325 mg Documented by: Benztropine Mesylate (Cogentin) 0.5 mg PO DAILY PRN; Protocol PRN Reason: eps Stop: 01/21/20 16:57 Bismuth Subsalicylate (Kaopectate) 15 ml PO PRN PRN PRN Reason: Loose Stool Stop: 01/21/20 16:53 Diazepam (Valium) 5 mg PO BID MAG Stop: 01/28/20 10:29 Last Admin: 01/08/20 08:38 Dose: 5 mg Documented by: Docusate Sodium (Colace) 100 mg PO BID MAG Stop: 01/21/20 20:59 Last Admin: 01/08/20 08:37 Dose: 100 mg Documented by: Haloperidol Lactate (Haldol) 5 mg IM Q6H PRN PRN Reason: Agitation Stop: 01/25/20 16:23 Hydroxyzine HCl (Vistaril) 50 mg PO HSZ PRN PRN Reason: Insomnia Stop: 01/21/20 16:53 Hydroxyzine HCl (Vistaril) 25 mg PO Q4H PRN PRN Reason: Anxiety Stop: 01/21/20 16:53 Magnesium Hydroxide (Milk Of Magnesia) 30 ml PO DAILY PRN PRN Reason: Constipation Stop: 01/21/20 16:53 Melatonin (Melatonin) 3 mg PO HSZ PRN; Protocol PRN Reason: Sleep Stop: 01/22/20 11:50 Sodium Chloride ([place] Nasal) 1 - 2 sprays NA PRN PRN PRN Reason: Nasal Dryness/Congestion Stop: 01/21/20 16:53 Temazepam (Restoril) 7.5 mg PO HSZ MAG Stop: 01/21/20 21:59 Last Admin: 01/07/20 20:52 Dose: 7.5 mg Documented by: Mental Health & Subst Abuse Tx Psychiatrist Name of Psychiatrist: [facility] - Dr. Alves Psychiatrist's Psychiatric Appointment Comment: Telehealth Therapist Name of Therapist: None Boilers Inspector Name of Boilers Inspector: Shruti Mcbride Phone Number for Boilers Inspector: [phone] Post Discharge Appointments Primary Care Physician Name Of Family Doctor: [facility] - Dr. Jeff Lopez Primary Care Provider Appointment Comment: [facility], [address], [place] [address] Neurologist Name of Neurologist: GRAZYNA - Dr. Caal Neurologist's Date of Appointment with Neurologist: 02/02/20 Time of Appointment with Neurologist: 10:00 a.m. Neurology Appointment Comment: [address] [facility], [address], [place] [address] Other #1: Name of Aftercare Appointment: JERRELL BRYAN Phone Number of Aftercare Appointment: [phone] Aftercare Appointment Comment: [place] [address] Contact Information Discharge Discharge Address: [place] [address] Contact Information Comment: JERRELL CRR (1) Hematuria Hematuria type: other microscopic Qualified Code(s): R31.29 - Other microscopic hematuria (2) Schizophrenia Schizophrenia type: unspecified Qualified Code(s): F20.9 - Schizophrenia, unspecified
[2020-01-08] MEDS: ARIPiprazole 10 MG TAB PO SCH (20:48)
[2020-01-08] MEDS: TEMAZEPAM 7.5 MG CAPSULE PO SCH (20:49)
[2020-01-09] MEDS: DOCUSATE SODIUM 100 MG CAP PO SCH ×2 (08:44→21:03)
[2020-01-09] MEDS: diazePAM 5 MG TABLET PO SCH ×2 (08:55→21:03)
[2020-01-09] MEDS: ASPIRIN 81 MG ECTAB PO SCH (09:33)
--- NOTE | 2020-01-09 11:56 | Psychiatric Progress Note ---
Date of Service January 09, 2020 Impression / Recommendations Impression 74-year-old male with schizophrenia who lives at the [facility], is on a 305 IOC, discharged from our unit 1 month ago after a serious suicide attempt by acetaminophen overdose, who presented requesting hospitalization due to suicidal thoughts with a plan to overdose in the context of worsening auditory hallucinations, including a loud buzzing sound and command auditory hallucinations to kill himself. His psychotic symptoms have been refractory to treatment and very challenging to treat, and during his last hospitalization he was here for > 1 month and had numerous medication trials, with poor response/severe side effects to multiple antipsychotics. Multiple medications were discontinued here but then restarted shortly after discharge, and [facility] staff noted that his mental state worsened when they were resumed. He has had ongoing conflict with the [facility] staff, and although he had agreed to allow them to hold all of his medications for safety, he did not follow through on this and was keeping some of his medications in his room, and obvious safety concern given his history of abusing benzodiazepines and overdoses. He had a 306 conversion hearing and is now on a 305 involuntary inpatient admission. He is on a retrial of Abilouie. It is important for patient to be able to demonstrate consistency of this prior to considering discharge based on his history of frequent hospitalizations and serious suicide attempts. Reviewed. Plan: continue current meds and treatment plan. Risk Factors Assessment Male: Yes : Yes Do You Have Access To A Gun?: No Health Problems: Yes Mental Health Diagnoses: Yes Substance Use Disorders: Yes Previous Attempt: Yes Previous Attempt; Highly Lethal: Yes Family History of Suicide: Yes Previous Psychiatric Hospitalization: Yes Hopelessness: Yes Smoker: Yes Protective Factors Assessment Sikhism Beliefs: No : No Responsible for Young Children: No Employed: No Stable Relationships: No Supportive Family: No Good Rapport with Provider: Yes Interval History Identifying Information SCOTT ROBERTO is a 74-year-old M who currently lives in [facility], has a history of schizophrenia, and was admitted on 12/22/19 16:55 on a 201 voluntary commitment for suicidal ideation. He is on a 305 IOC, and had a conversion hearing 12/24/2019 to transition to involuntary inpatient commitment. Chief Complaint "I'm a little tight". Review of Systems Sleep Information Total Hours of Sleep: 7.75 Sleep Comments: pt on q-15 minute checks Meal Information Percent Meal Consumed - Breakfast: 100 Percent Meal Consumed - Lunch: 100 Percent Meal Consumed - Dinner: 100 Nutrition Comment: per meal record Subjective Subjective Patient was seen & assessed and interval progress reviewed with nursing and social work. Med compliant. States he took Cogentin this am for generalized tightness. No issue with swallow and just had a good breakfast. States "I'll continue with the tablets", referring to not wanting injectable medication. Physical Exam Psychiatric Orientation: alert Apperance: appropriately groomed Eye Contact: good eye contact Motor Behavior: steady gait and station Speech: normal rate/rhythm/volume of speech Affect: + anxious affect Mood: + depressed mood Thought Process: linear/logical thought process Thought Content: + delusions Suicidal Thoughts: denies suicidal thoughts unable to contract for safety outside of the structure of the hospital. Homicidal Thoughts: denies homicidal thoughts Hallucinations: + auditory hallucinations Cognition: attention grossly intact and language grossly intact Insight: + impaired insight Judgement: + impaired judgement Vital Signs (Past 24 Hours) Last Vital Signs Temp 36.6 C 01/09/20 06:45 Pulse 82 01/09/20 06:46 Resp 18 01/09/20 06:45 BP 120/76 01/09/20 06:46 Pulse Ox 97 12/22/19 17:35 Results & Data ([facility]) Current Inpatient Medications Current Inpatient Medications: Current Inpatient Medications Acetaminophen (Tylenol) 650 mg PO Q4H PRN PRN Reason: Headache or Minor Fever Stop: 01/21/20 16:53 Last Admin: 01/03/20 12:02 Dose: 650 mg Documented by: Al Hydrox/Mg Hydrox/Simethicone (Maalox) 30 ml PO Q4H PRN PRN Reason: GI Upset Stop: 01/21/20 16:53 Aripiprazole (Abilify) 10 mg PO HS MAG Stop: 02/04/20 21:59 Last Admin: 01/08/20 20:48 Dose: 10 mg Documented by: Aspirin (Ecotrin Ectab) 81 mg PO DAILY MAG Stop: 01/22/20 08:59 Last Admin: 01/09/20 09:33 Dose: 81 mg Documented by: Aspirin Buffered (Ascriptin) 325 mg PO Q6H PRN PRN Reason: Pain Stop: 02/02/20 11:59 Last Admin: 05/19/20 08:59 Dose: 325 mg Documented by: Benztropine Mesylate (Cogentin) 0.5 mg PO DAILY PRN; Protocol PRN Reason: eps Stop: 01/21/20 16:57 Last Admin: 01/09/20 08:52 Dose: 0.5 mg Documented by: Bismuth Subsalicylate (Kaopectate) 15 ml PO PRN PRN PRN Reason: Loose Stool Stop: 01/21/20 16:53 Diazepam (Valium) 5 mg PO BID MAG Stop: 01/28/20 10:29 Last Admin: 01/09/20 08:55 Dose: 5 mg Documented by: Docusate Sodium (Colace) 100 mg PO BID MAG Stop: 01/21/20 20:59 Last Admin: 01/09/20 08:44 Dose: 100 mg Documented by: Haloperidol Lactate (Haldol) 5 mg IM Q6H PRN PRN Reason: Agitation Stop: 01/25/20 16:23 Hydroxyzine HCl (Vistaril) 50 mg PO HSZ PRN PRN Reason: Insomnia Stop: 01/21/20 16:53 Hydroxyzine HCl (Vistaril) 25 mg PO Q4H PRN PRN Reason: Anxiety Stop: 01/21/20 16:53 Magnesium Hydroxide (Milk Of Magnesia) 30 ml PO DAILY PRN PRN Reason: Constipation Stop: 01/21/20 16:53 Melatonin (Melatonin) 3 mg PO HSZ PRN; Protocol PRN Reason: Sleep Stop: 01/22/20 11:50 Sodium Chloride ([place] Nasal) 1 - 2 sprays NA PRN PRN PRN Reason: Nasal Dryness/Congestion Stop: 01/21/20 16:53 Temazepam (Restoril) 7.5 mg PO HSZ MAG Stop: 01/21/20 21:59 Last Admin: 01/08/20 20:49 Dose: 7.5 mg Documented by: Mental Health & Subst Abuse Tx Psychiatrist Name of Psychiatrist: [facility] - Dr. Alves Psychiatrist's Date of Appointment with Psychiatrist: 01/21/20 Time of Appointment with Psychiatrist: 12:50 p.m. Psychiatric Appointment Comment: Telehealth Therapist Name of Therapist: None Weatherization Technician Name of Weatherization Technician: Shruti Mcbride Phone Number for Weatherization Technician: [phone] Case Management Appointment Comment: Will follow up with you Post Discharge Appointments Primary Care Physician Name Of Family Doctor: [facility] - Dr. Jeff Lopez Primary Care Time of Appointment with PCP: Follow up as needed Provider Appointment Comment: [address] [facility], [address], [place] [address] Neurologist Name of Neurologist[place] [facility] Caal Neurologist's Date of Appointment with Neurologist: 02/02/20 Time of Appointment with Neurologist: 10:00 a.m. Neurology Appointment Comment: [address] [facility], [address], [place] [address] Contact Information Discharge Discharge Address: [address] [place] [address], [place] [address] Contact Information Comment: JERRELL BRYAN
[2020-01-09] MEDS: ARIPiprazole 10 MG TAB PO SCH (21:04)
[2020-01-09] MEDS: TEMAZEPAM 7.5 MG CAPSULE PO SCH (21:04)
[2020-01-09] MEDS: ASPIRIN/ALUM/MAGNES/CAL CARB 325 MG TAB PO PRN (21:05)
[2020-01-10] MEDS: ASPIRIN 81 MG ECTAB PO SCH (09:04)
[2020-01-10] MEDS: diazePAM 5 MG TABLET PO SCH ×2 (09:04→21:23)
[2020-01-10] MEDS: DOCUSATE SODIUM 100 MG CAP PO SCH ×2 (09:04→21:23)
--- NOTE | 2020-01-10 11:31 | Psychiatric Progress Note ---
Date of Service January 10, 2020 Impression / Recommendations Impression 74-year-old male with schizophrenia who lives at the [facility], is on a 305 IOC, discharged from our unit 1 month ago after a serious suicide attempt by acetaminophen overdose, who presented requesting hospitalization due to suicidal thoughts with a plan to overdose in the context of worsening auditory hallucinations, including a loud buzzing sound and command auditory hallucinations to kill himself. His psychotic symptoms have been refractory to treatment and very challenging to treat, and during his last hospitalization he was here for > 1 month and had numerous medication trials, with poor response/severe side effects to multiple antipsychotics. Multiple medications were discontinued here but then restarted shortly after discharge, and residential staff noted that his mental state worsened when they were resumed. He has had ongoing conflict with the residential staff, and although he had agreed to allow them to hold all of his medications for safety, he did not follow through on this and was keeping some of his medications in his room, and obvious safety concern given his history of abusing benzodiazepines and overdoses. He had a 306 conversion hearing and is now on a 305 involuntary inpatient admission. He is on a retrial of Abiliy. It is important for patient to be able to demonstrate consistency of this prior to considering discharge based on his history of frequent hospitalizations and serious suicide attempts. Reviewed again 01/09. Plan: continue current meds and treatment plan, phone contact with CRR re: discharge planning on 01/11. Risk Factors Assessment Male: Yes : Yes Do You Have Access To A Gun?: No Health Problems: Yes Mental Health Diagnoses: Yes Substance Use Disorders: Yes Previous Attempt: Yes Previous Attempt; Highly Lethal: Yes Family History of Suicide: Yes Previous Psychiatric Hospitalization: Yes Hopelessness: Yes Smoker: Yes Protective Factors Assessment Episcopal Beliefs: No : No Responsible for Young Children: No Employed: No Stable Relationships: No Supportive Family: No Good Rapport with Provider: Yes Interval History Identifying Information SCOTT ROBERTO is a 74-year-old M who currently lives in [facility], has a history of schizophrenia, and was admitted on 12/22/19 16:55 on a 201 voluntary commitment for suicidal ideation. He is on a 305 IOC, and had a conversion hearing 12/24/2019 to transition to involuntary inpatient commitment. Chief Complaint "I could really use a Valium with lunch". Review of Systems Sleep Information Total Hours of Sleep: 6 Sleep Comments: pt on q-15 minute checks Meal Information Percent Meal Consumed - Breakfast: 100 Percent Meal Consumed - Lunch: 100 Percent Meal Consumed - Dinner: 100 Nutrition Comment: per meal record Subjective Subjective Patient was seen & assessed and interval progress reviewed with nursing and social work. No new issues over night. Tends to complain about muscle tightness but unclear how much is really EPS vs seeking valium. He has been initiating conversation/more polite with peers and showing more affect in interactions. Physical Exam Psychiatric Orientation: alert Apperance: appropriately dressed and appropriately groomed Eye Contact: good eye contact Motor Behavior: steady gait and station Speech: normal rate/rhythm/volume of speech Affect: euthymic affect Mood: + depressed mood Thought Process: + concrete thought process Thought Content: + delusions endorses intermittent SI but chronic and no intent or plan on unit. Homicidal Thoughts: denies homicidal thoughts Hallucinations: + auditory hallucinations (but not as disturbed by them); no visual hallucinations Insight: + limited insight Judgement: + limited judgement Vital Signs (Past 24 Hours) Last Vital Signs Temp 36.6 C 01/10/20 06:52 Pulse 78 01/10/20 06:52 Resp 18 01/10/20 06:52 BP 127/78 01/10/20 06:52 Pulse Ox 97 12/22/19 17:35 Results & Data ([facility]) Current Inpatient Medications Current Inpatient Medications: Current Inpatient Medications Acetaminophen (Tylenol) 650 mg PO Q4H PRN PRN Reason: Headache or Minor Fever Stop: 01/21/20 16:53 Last Admin: 01/03/20 12:02 Dose: 650 mg Documented by: Al Hydrox/Mg Hydrox/Simethicone (Maalox) 30 ml PO Q4H PRN PRN Reason: GI Upset Stop: 01/21/20 16:53 Aripiprazole (Abilify) 10 mg PO HS MAG Stop: 02/04/20 21:59 Last Admin: 01/09/20 21:04 Dose: 10 mg Documented by: Aspirin (Ecotrin Ectab) 81 mg PO DAILY MAG Stop: 01/22/20 08:59 Last Admin: 01/10/20 09:04 Dose: 81 mg Documented by: Aspirin Buffered (Ascriptin) 325 mg PO Q6H PRN PRN Reason: Pain Stop: 02/02/20 11:59 Last Admin: 01/09/20 21:05 Dose: 325 mg Documented by: Benztropine Mesylate (Cogentin) 0.5 mg PO DAILY PRN; Protocol PRN Reason: eps Stop: 01/21/20 16:57 Last Admin: 01/09/20 08:52 Dose: 0.5 mg Documented by: Bismuth Subsalicylate (Kaopectate) 15 ml PO PRN PRN PRN Reason: Loose Stool Stop: 01/21/20 16:53 Diazepam (Valium) 5 mg PO BID MAG Stop: 01/28/20 10:29 Last Admin: 01/10/20 09:04 Dose: 5 mg Documented by: Docusate Sodium (Colace) 100 mg PO BID MAG Stop: 01/21/20 20:59 Last Admin: 01/10/20 09:04 Dose: 100 mg Documented by: Haloperidol Lactate (Haldol) 5 mg IM Q6H PRN PRN Reason: Agitation Stop: 01/25/20 16:23 Hydroxyzine HCl (Vistaril) 50 mg PO HSZ PRN PRN Reason: Insomnia Stop: 01/21/20 16:53 Hydroxyzine HCl (Vistaril) 25 mg PO Q4H PRN PRN Reason: Anxiety Stop: 01/21/20 16:53 Magnesium Hydroxide (Milk Of Magnesia) 30 ml PO DAILY PRN PRN Reason: Constipation Stop: 01/21/20 16:53 Melatonin (Melatonin) 3 mg PO HSZ PRN; Protocol PRN Reason: Sleep Stop: 01/22/20 11:50 Sodium Chloride ([place] Nasal) 1 - 2 sprays NA PRN PRN PRN Reason: Nasal Dryness/Congestion Stop: 01/21/20 16:53 Temazepam (Restoril) 7.5 mg PO HSZ MAG Stop: 01/21/20 21:59 Last Admin: 01/09/20 21:04 Dose: 7.5 mg Documented by: Mental Health & Subst Abuse Tx Psychiatrist Name of Psychiatrist: [facility] - Dr. Alves Psychiatrist's Date of Appointment with Psychiatrist: 01/21/20 Time of Appointment with Psychiatrist: 12:50 p.m. Psychiatric Appointment Comment: Telehealth Therapist Name of Therapist: None Patent Agent Name of Patent Agent: Shruti Guadalupe Lowell Mcbried Phone Number for Patent Agent: [phone] Case Management Appointment Comment: Will follow up with you Post Discharge Appointments Primary Care Physician Name Of Family Doctor: [facility] - Dr. Jeff Lopez Primary Care Time of Appointment with PCP: Follow up as needed Provider Appointment Comment: [address] [facility], [address], [place] [address] Neurologist Name of Neurologist: GRAZYNA - Dr. Caal Neurologist's Date of Appointment with Neurologist: 02/02/20 Time of Appointment with Neurologist: 10:00 a.m. Neurology Appointment Comment: [address] [facility] [address] [facility], [address], [place] [address] Contact Information Discharge Discharge Address: [address] [place] [address], [place] [address] Contact Information Comment: JERRELL BRYAN
[2020-01-10] MEDS: TEMAZEPAM 7.5 MG CAPSULE PO SCH (21:23)
[2020-01-10] MEDS: ARIPiprazole 10 MG TAB PO SCH (21:23)
[2020-01-11] MEDS: DOCUSATE SODIUM 100 MG CAP PO SCH ×2 (08:29→21:12)
[2020-01-11] MEDS: ASPIRIN 81 MG ECTAB PO SCH (08:29)
[2020-01-11] MEDS: diazePAM 5 MG TABLET PO SCH ×2 (08:30→21:12)
--- NOTE | 2020-01-11 13:22 | Psychiatric Progress Note ---
Date of Service January 11, 2020 Impression / Recommendations Impression 74-year-old male with schizophrenia who lives at the [facility], is on a 305 IOC, discharged from our unit 1 month ago after a serious suicide attempt by acetaminophen overdose, who presented requesting hospitalization due to suicidal thoughts with a plan to overdose in the context of worsening auditory hallucinations, including a loud buzzing sound and command auditory hallucinations to kill himself. His psychotic symptoms have been refractory to treatment and very challenging to treat, and during his last hospitalization he was here for > 1 month and had numerous medication trials, with poor response/severe side effects to multiple antipsychotics. Multiple medications were discontinued here but then restarted shortly after discharge, and senior living staff noted that his mental state worsened when they were resumed. He has had ongoing conflict with the senior living staff, and although he had agreed to allow them to hold all of his medications for safety, he did not follow through on this and was keeping some of his medications in his room, and obvious safety concern given his history of abusing benzodiazepines and overdoses. He had a 306 conversion hearing and is now on a 305 involuntary inpatient admission. He is on a retrial of Abiliy. It is important for patient to be able to demonstrate consistency of this prior to considering discharge based on his history of frequent hospitalizations and serious suicide attempts. Reviewed again 01/09 & 01/10 01/10 Plan: continue current meds and treatment plan, phone contact with CRR re: discharge planning on 01/11. Risk Factors Assessment Male: Yes : Yes Do You Have Access To A Gun?: No Health Problems: Yes Mental Health Diagnoses: Yes Substance Use Disorders: Yes Previous Attempt: Yes Previous Attempt; Highly Lethal: Yes Family History of Suicide: Yes Previous Psychiatric Hospitalization: Yes Hopelessness: Yes Smoker: Yes Protective Factors Assessment Mandaeism Beliefs: No : No Responsible for Young Children: No Employed: No Stable Relationships: No Supportive Family: No Good Rapport with Provider: Yes Interval History Identifying Information SCOTT ROBERTO is a 74-year-old M who currently lives in [facility], has a history of schizophrenia, and was admitted on 12/22/19 16:55 on a 201 voluntary commitment for suicidal ideation. He is on a 305 IOC, and had a conversion hearing 12/24/2019 to transition to involuntary inpatient commitment. Chief Complaint "acutally I'm feeling pretty good". Review of Systems Sleep Information Total Hours of Sleep: 6.5 Sleep Comments: pt on q-15 minute checks Meal Information Percent Meal Consumed - Breakfast: 100 Percent Meal Consumed - Lunch: 100 Percent Meal Consumed - Dinner: 100 Nutrition Comment: per meal record Subjective Subjective Patient was seen & assessed and interval progress reviewed with nursing. No conc erns overnight. Tolerating medication. Of course continues to mention that noon time dose of Valium would be "no big deal". Physical Exam Psychiatric Orientation: alert Apperance: appropriately dressed and appropriately groomed Eye Contact: + fair eye contact Motor Behavior: steady gait and station Speech: normal rate/rhythm/volume of speech Affect: euthymic affect Thought Process: goal directed thought process Thought Content: reality based without delusions Suicidal Thoughts: denies suicidal thoughts Homicidal Thoughts: denies homicidal thoughts Hallucinations: + auditory hallucinations ("not too much") Vital Signs (Past 24 Hours) Last Vital Signs Temp 36.5 C 01/11/20 07:00 Pulse 73 01/11/20 07:01 Resp 18 01/11/20 07:00 BP 122/74 01/11/20 07:01 Pulse Ox 97 12/22/19 17:35 Results & Data ([facility]) Current Inpatient Medications Current Inpatient Medications: Current Inpatient Medications Acetaminophen (Tylenol) 650 mg PO Q4H PRN PRN Reason: Headache or Minor Fever Stop: 01/21/20 16:53 Last Admin: 01/03/20 12:02 Dose: 650 mg Documented by: Al Hydrox/Mg Hydrox/Simethicone (Maalox) 30 ml PO Q4H PRN PRN Reason: GI Upset Stop: 01/21/20 16:53 Aripiprazole (Abilify) 10 mg PO HS MAG Stop: 02/04/20 21:59 Last Admin: 01/10/20 21:23 Dose: 10 mg Documented by: Aspirin (Ecotrin Ectab) 81 mg PO DAILY MAG Stop: 01/22/20 08:59 Last Admin: 01/11/20 08:29 Dose: 81 mg Documented by: Aspirin Buffered (Ascriptin) 325 mg PO Q6H PRN PRN Reason: Pain Stop: 02/02/20 11:59 Last Admin: 01/09/20 21:05 Dose: 325 mg Documented by: Benztropine Mesylate (Cogentin) 0.5 mg PO DAILY PRN; Protocol PRN Reason: eps Stop: 01/21/20 16:57 Last Admin: 01/09/20 08:52 Dose: 0.5 mg Documented by: Bismuth Subsalicylate (Kaopectate) 15 ml PO PRN PRN PRN Reason: Loose Stool Stop: 01/21/20 16:53 Diazepam (Valium) 5 mg PO BID MAG Stop: 01/28/20 10:29 Last Admin: 01/11/20 08:30 Dose: 5 mg Documented by: Docusate Sodium (Colace) 100 mg PO BID MAG Stop: 01/21/20 20:59 Last Admin: 01/11/20 08:29 Dose: 100 mg Documented by: Haloperidol Lactate (Haldol) 5 mg IM Q6H PRN PRN Reason: Agitation Stop: 01/25/20 16:23 Hydroxyzine HCl (Vistaril) 50 mg PO HSZ PRN PRN Reason: Insomnia Stop: 01/21/20 16:53 Hydroxyzine HCl (Vistaril) 25 mg PO Q4H PRN PRN Reason: Anxiety Stop: 01/21/20 16:53 Magnesium Hydroxide (Milk Of Magnesia) 30 ml PO DAILY PRN PRN Reason: Constipation Stop: 01/21/20 16:53 Melatonin (Melatonin) 3 mg PO HSZ PRN; Protocol PRN Reason: Sleep Stop: 01/22/20 11:50 Sodium Chloride ([place] Nasal) 1 - 2 sprays NA PRN PRN PRN Reason: Nasal Dryness/Congestion Stop: 01/21/20 16:53 Temazepam (Restoril) 7.5 mg PO HSZ MAG Stop: 01/21/20 21:59 Last Admin: 01/10/20 21:23 Dose: 7.5 mg Documented by: Mental Health & Subst Abuse Tx Psychiatrist Name of Psychiatrist: [facility] - Dr. Alves Psychiatrist's Date of Appointment with Psychiatrist: 01/21/20 Time of Appointment with Psychiatrist: 12:50 p.m. Psychiatric Appointment Comment: Telehealth Therapist Name of Therapist: None Data Analysis Manager Name of Data Analysis Manager: Shruti Mcbride Phone Number for Data Analysis Manager: [phone] Case Management Appointment Comment: Will follow up with you Post Discharge Appointments Primary Care Physician Name Of Family Doctor: [facility] - Dr. Jeff Lopez Primary Care Time of Appointment with PCP: Follow up as needed Provider Appointment Comment: [address] [facility], [address], [place] [address] Neurologist Name of Neurologist: GRAZYNA - Dr. Caal Neurologist's Date of Appointment with Neurologist: 02/02/20 Time of Appointment with Neurologist: 10:00 a.m. Neurology Appointment Comment: [address] [facility], [address], [place] [address] Contact Information Discharge Discharge Address: [address] [place] [address], [place] [address] Contact Information Comment: JERRELL BRYAN
[2020-01-11] MEDS: TEMAZEPAM 7.5 MG CAPSULE PO SCH (21:12)
[2020-01-11] MEDS: ARIPiprazole 10 MG TAB PO SCH (21:12)
[2020-01-12] MEDS: diazePAM 5 MG TABLET PO SCH ×2 (08:33→21:00)
[2020-01-12] MEDS: ASPIRIN 81 MG ECTAB PO SCH (08:33)
[2020-01-12] MEDS: DOCUSATE SODIUM 100 MG CAP PO SCH ×2 (08:33→21:00)
--- NOTE | 2020-01-12 11:03 | Psychiatric Progress Note ---
Date of Service January 12, 2020 Impression / Recommendations Impression 74-year-old male with schizophrenia who lives at the [facility], is on a 305 IOC, discharged from our unit 1 month ago after a serious suicide attempt by acetaminophen overdose, who presented requesting hospitalization due to suicidal thoughts with a plan to overdose in the context of worsening auditory hallucinations, including a loud buzzing sound and command auditory hallucinations to kill himself. His psychotic symptoms have been refractory to treatment and very challenging to treat, and during his last hospitalization he was here for > 1 month and had numerous medication trials, with poor response/severe side effects to multiple antipsychotics. Multiple medications were discontinued here but then restarted shortly after discharge, and [facility] staff noted that his mental state worsened when they were resumed. He has had ongoing conflict with the [facility] staff, and although he had agreed to allow them to hold all of his medications for safety, he did not follow through on this and was keeping some of his medications in his room, and obvious safety concern given his history of abusing benzodiazepines and overdoses. He had a 306 conversion hearing and is now on a 305 involuntary inpatient admission. He is on a retrial of [place]. It is important for patient to be able to demonstrate consistency of this prior to considering discharge based on his history of frequent hospitalizations and serious suicide attempts. Reviewed again 01/09 & 01/10 (1) Suicidal ideation: 12/22 -every 15 minute checks for safety. -Continue inpatient treatment, signed in voluntarily but as he is on a 305 IOC, we will have a 3 of 6 conversion hearing tomorrow. Patient advised and aware. -Encourage group attendance, work on healthy coping skills and discharge safety plan. 12/23 -SI continues in response to command auditory hallucinations and loud buzzing noise. 12/24 -Today the patient describes hearing human voices that command him to commit suicide. He expresses suicidal intent, that he says will become active when he leaves the hospital, but then adds that he does not have the means. He points to the fact that he tried taking an overdose of [id number] medicines and did not , and he adds, "You doctors will not give me [lethal drugs)." He adds that he has considered attempting to kill himself by taking rat poison, and perhaps an advisedly I explained to him that rat poison includes and emetic so that all that would do is make him feel very sick. 12/25 - States today "I will commit suicide as soon as I leave the hospital." 12/26 - 12/27 - Remains suicidal, unwilling to participate in safety planning conversations 12/31 - Ongoing, daily suicidality 01/01 -no change 01/03 - Reports ongoing SI related to "noise" in his head he describes as "chirping" or "radio static" 01/04 - Pt reporting ongoing SI - reporting suicide as "just a practical solution" to all that he has been experiencing. 01/05 - Denying SI, reporting feeling more comfortable to begin discussing discharge and safety plans 01/06 - 01/07 - Continues to deny SI (2) Schizophrenia: 12/22 -resume medication regimen he was on at the time of discharge 1 month ago, as he was doing well on that combination of medications, and per her [facility] staff worsened after some of his previous medications (mirtazapine, clonidine, and alprazolam) were resumed shortly after discharge. Spoke with his outpatient psychiatrist to coordinate care regarding medications. -Continue perphenazine 4 mg every morning and 8 mg q. 1700 hrs., temazepam 7.5 mg at bedtime, melatonin 10 mg at bedtime as needed insomnia, and benztropine 0.5 mg as needed for EPS. -Offer alprazolam 0.5 mg twice daily as needed anxiety/panic. -Treatment planning meeting to include [facility] staff, his outpatient case specialist, and will invite outpatient psychiatrist as well, to be held after his commitment hearing tomorrow. He has been refusing recommendations for outpatient therapy for some time, and unaware of any other services available in the community currently, as clubhouse/psych rehab close due to pandemic. 12/23 -306 hearing held, now on a 305 involuntary commitment. We will need to transition back to [facility] at discharge. -Treatment planning meeting held -will send medications to [facility] order [facility] at discharge. -Patient indicates willingness to consider outpatient therapy, which is indicated but he has always refused in the past. -Patient has a history of abusing benzodiazepines, but also has significant distress due to tinnitus and chronic insomnia, for which temazepam has been helpful. Benefits includes observed ability to tolerate low-dose temazepam without significant side effects and efficacy of temazepam with failure of multiple other medications for sleep/anxiety/hallucinations. Risks include potential for abuse, intentional overdose, ongoing suicidality with recent suicide attempt by overdose. We attempted to mitigate these by coordinating a plan for CRR staff to hold all of the patient's medications and dispense them daily, so that he would not have access to large amounts of pills which would reduce the potential for abuse or intentional overdose. If he is not willing to do this, the risks likely outweigh the benefits, and benzodiazepines should be discontinued. -Ongoing auditory hallucinations as above; increase perphenazine to 8 mg twice daily. -Fasting labs for monitoring on an antipsychotic reviewed from 02/2019: Glucose 83, FLP all values within normal limits. -Discontinue alprazolam, in order to avoid polypharmacy and worsening confusion. 12/24 -The patient continues to believe, as he has fairly consistently over the years, that he is being persecuted by various entities, possibly in the form of humans, or possibly powerful computers or robots that are seeking his , either by murdering him or by convincing him to commit suicide. His response to questions such as, "why do you suppose they would want to do that" generally is quite concrete, and he responds by saying things such as "because they want me , that is why." -The patient's report today is that he responds favorably to diazepam, not because that medication stops him from hearing the "voices" in the "buzzing" or "chirping" sounds that he hears, but because it reduces his anxiety so he is less apt to be overwhelmed by the distress that it causes him. Staff indicate that he does seem to have responded to a as needed diazepam 5 mg dose given last evening. There is a history of benzodiazepine abuse, and at his age we are reluctant to use benzodiazepines. However, based on past experience with this patient, there is a risk of his becoming fully uncooperative and incorporating this into his delusional system. There is no question but that the patient does experience significant distress associated with his perceptual disturbances and his paranoid delusions. He is responding favorably to the temazepam at bedtime and does have a history of responding to benzodiazepines, as long as they are given in modest dosages and are carefully monitored. Accordingly, he was placed diazepam 5 mg twice a day standing dose starting today. 12/25 - Pt remains depressed and increasingly irritable over the course of his stay thus far. Pt is more reality-based in his perception of the benefit of diazepam, admitting it helps the anxiety he experiences as a result of the "head buzzing" but not the head buzzing itself. Pt does request that the diazepam be available as needed instead of scheduled, but also wishes to increase the dose to three times a day. As patient is reporting dizziness, the request to increase the frequency of the medication was declined at this time, but it will be adjusted to be available twice daily as needed. - Pt is refusing to titrate his dose of perphenazine any further as he does not believe that "any antipsychotic has even been effective so why take more of it." Will order 4mg prn dose of perphenazine which can be offered to the patient for auditory hallucinations, though it is not clear he would request or accept if offered. - Pt maintains that he "will commit suicide as soon as I leave the hospital", and this remains a significant concern given his history of serious overdose and frequent admissions 12/26 - Growing increasingly irritable, only engaging with this provider for a limited period of time today - Continue perphenazine 8mg BID, though patient has been refusing the medication - Diazepam held yesterday as patient was observed to be cheeking the medication - will not resume at this time as patient is not able to participate in conversation to discuss appropriate administration of medications 12/27 - Pt remains irritable, with limited participation in interview - Pt continues to refuse to take perphenazine as he states it is contraindicated in dementia (pt reminded that this is not a formal diagnosis, and that multiple providers are recommending the medication) - Evaluate if patient may meet criteria for medications over objection if his medication refusal continues, as it is not reasonable to assume his symptoms will improve without pharmacological interventions. - Requesting only diazepam, but remains unable to engage in conversation regarding how he can reliably take this medication appropriately 12/28 -Patient remains unwilling to take perphenazine or engage in discussion of other antipsychotic options. He has had multiple failed trials and fairly severe side effects to previous antipsychotics, and additionally has poor insight into his illness, which complicates treatment. During his last hospitalization, he had a trial of ziprasidone which was ineffective, and clozapine caused altered mental status and EPS. He ultimately tolerated perphenazine and was discharged on that medication, but is now refusing to take it. Ideally, he would be on a long-acting injectable antipsychotic, but as he is not even been willing to take oral antipsychotics, this limits his options (as there are no immediate release injectable formulations of paliperidone, risperidone, or aripiprazole). I believe he will require medications over objection if he remains unwilling to take an antipsychotic, likely starting with IM haloperidol, as it has p.o., IM, and FARAH options. -Patient does report some relief with diazepam, and at this time I believe the benefits outweigh the risks. It is obviously not a good longer term medication for him given his history of benzodiazepine abuse as well as age and cognitive impairment, but it is the only medication that gives him relief from his current symptoms and that he is willing to take, so my hope is that if we can reduce his anxiety and distress level to some degree, he will be willing to take an antipsychotic medication to target his schizophrenic symptoms. He is agreeing to take the medication dissolved in water, which decreases the risk of cheeking. We will resume 5 mg twice daily. 12/29 - Remains very irritable, limited participation - Pt continues to refuse perphenazine. He was reminded of consideration for medications over objection if he remains unwilling to engage in a conversation about appropriate medications. Pt mentioned olanzapine, but did not verbalize commitment to taking it consistently. We will order olanzapine 5mg BID and continue to offer patient appropriate medications to target his ongoing auditory hallucinations and "head buzzing" - Has been complaint with diazepam dissolved in water 12/30 - Ongoing irritability limiting engagement in interview today - Pt was aware of recommendation to increase olanzapine to 10mg daily, with ongoing titration over time. Pt only willing to take the medication in the morning, and is refusing to increase dose past 5mg. Olanzapine 10mg was ordered, with staff informed patient could be provided with 5mg if he is only willing to take this amount. Based on patient's ongoing inappropriate requests regarding treatment, it remains highly likely he will require medications over objection in order to target his continued symptoms of schizophrenia. Pt aware that this is being considered, and continues to refuse to engage in conversation regarding appropriate treatment with oral medications. - Continues to be agreeable with diazepam and temazepam - pt made aware that this is insufficient treatment for his schizophrenia diagnosis. 12/31 - Ongoing irritability, but more willing to engage in conversation today. - Pt is currently agreeable with taking 5mg of olanzapine at bedtime, but refu ses to go up on the dose beyond that. First opinion for medications over objection is written in chart. Second opinion was documented in Communication Note dated 01/01/2020. 5mg IM injection of olanzapine has been ordered for refusal of oral medications. - Pt continues to request higher doses of diazepam, as he believes it is the only thing that works for his auditory hallucinations. Pt continues to be informed that dose will not be adjusted beyond 5mg BID. - Pt did take a call from his outpatient psychiatric case specialist today 01/01 -Received first dose of olanzapine 5 mg last evening. Will continue through weekend 01/02 -Tolerating and compliant with oral olanzapine over the weekend. He asks about Abilify today and he was educated about that agent regarding treatment effect profile and, risks and benefits. He expressed interest in considering another trial and will review records for prior response and tolerability. Abilify might be a little more helpful for mood and is available in a long- acting injectable. -His somatic preoccupations associated with his psychosis are longstanding. Will add aspirin as needed for musculoskeletal pain at his request today. Reviewed no history of allergy and already on low-dose aspirin daily. 01/03 - Aripiprazole was reviewed in more detail today. Pt did request supplemental information regarding standard dosing and contraindications, which was printed from [employer] and provided to the patient. Pt is agreeable with re-trial of the medication. Discussed initiating at 5mg tonight, but patient was made aware of recommendation to titrate the medication to standard dosing as tolerated. At this time, patient is reporting interest in the possibility of an FARAH - and this can be discussed in greater detail over the next few days. - Pt continues to endorse auditory hallucinations and "static" or "chirping" - which he claims no medications have been particularly helpful with. Will continue to explore these reports, as they are highly linked to patient's suicidality. 01/04 - Pt remains agreeable with taking aripiprazole, but is only willing to take 10mg daily. Will titrate dose to 10mg this evening. He is now hesitant to consider an FARAH as he does not desire to endure the pain of the injection. Will continue to review with the patient for ongoing consideration. - Pt has been less irritable overall, but continues to make specific dictations regarding his treatment and medication recommendations. - Pt continues to report desire to return to the [facility] when discharged, but has not been able to productively discuss discharge and safety planning at this time. 01/05 - Continue aripiprazole 10mg daily. Pt still hesitant to consider FARAH, but can continue to offer information - Continues to be less irritable and is even brighter during interactions - joking and smiling intermittently - Pt continues to express desire to return to the [facility] after discharge. He feels more comfortable discussing discharge and safety plans as he feels his auditory hallucinations are more tolerable and suicidality has been reduced. 01/06 - Continue aripiprazole 10mg daily - patient reports willingness to consider Abilify Maintena, possibly agreeing to the injection as soon as tomorrow - Continues to be in better spirits today, reporting auditory hallucinations are more tolerable - Continues to engage in discussions regarding discharge planning - will coordinate with [facility]R regarding discharge date - Discontinue MNPR as patient's behavior has been appropriate over the last several days 01/07 - Continue aripiprazole 10mg daily - patient again changing his mind, now saying he is unwilling for Abilify Maintena. Should patient eventually be willing to consider, would suggest dose of 300mg IM q4 weeks. Copay was reported to be $15 for Abilify Maintena. Oral aripiprazole 10mg tablets are available for a copay of $8. - Continue attempts to coordinate with the CRR regarding discharge plans 01/10 Plan: continue current meds and treatment plan, phone contact with CRR re: discharge planning on 01/11. 01/11 -Patient scheduled for discharge to the [facility] tomorrow. Schedule follow-up with his outpatient psychiatrist and continue to encourage individual psychotherapy. (3) Hematuria: 12/22 -hematuria noted on UA in the ER, has had this several times in the past as well. No sign of AMOS or UTI, and ER physician recommended outpatient follow-up with PCP, Dr. Lopez. (4) Memory changes: 12/22 -patient was seen by neurology just prior to discharge at the beginning of November; noted multiple risk factors for dementia, and recommended vitamin B12 level (1371), brain MRI to identify lesions contributing to cognitive impairment, and neuropsychological testing. She also recommended avoiding benzodiazepines. A brain MRI was done on the day of discharge and was notable for mild progressive nonspecific foci of increased T2 signal within the white matter, likely on a small vessel basis, but negative for acute intracranial findings, masses, subacute or acute infarction. He is scheduled to follow-up with Dr. Caal on 02/02/2020. 12/24 -The patient has had a number of encounters with me during the past year, but is unable to recall my name. He does note that on the psychiatrist, and today he is oriented to person, place, time and situation. When I mentioned that I had not heard him complain of right temporal pain before, he replied by saying, "I have just now started calling in a pain, because no one seems to understand how awful [the voices and noises] are." 12/25 -12/30 - Consider repeat MoCA, too irritable to participate Risk Factors Assessment Male: Yes : Yes Do You Have Access To A Gun?: No Health Problems: Yes Mental Health Diagnoses: Yes Substance Use Disorders: Yes Previous Attempt: Yes Previous Attempt; Highly Lethal: Yes Family History of Suicide: Yes Previous Psychiatric Hospitalization: Yes Hopelessness: Yes Smoker: Yes Protective Factors Assessment Tenriism Beliefs: No : No Responsible for Young Children: No Employed: No Stable Relationships: No Supportive Family: No Good Rapport with Provider: Yes Interval History Identifying Information SCOTT ROBERTO is a 74-year-old M who currently lives in [facility], has a history of schizophrenia, and was admitted on 12/22/19 16:55 on a 201 voluntary co mmitment for suicidal ideation. He is on a 305 IOC, and had a conversion hearing 12/24/2019 to transition to involuntary inpatient commitment. Chief Complaint "Good". Review of Systems Sleep Information Total Hours of Sleep: 6.5 Sleep Comments: pt on q-15 minute checks Meal Information Percent Meal Consumed - Breakfast: 100 Percent Meal Consumed - Lunch: 100 Percent Meal Consumed - Dinner: 100 Nutrition Comment: per meal record Subjective Subjective Patient was seen & assessed and interval progress reviewed with treatment team. Staff report he is compliant with medications, tolerating them well, and consistently reporting good mood. On my assessment, he was seen in his room where he is reclining on the bed looking out the window. He reports mood is "good" and denies SI and HI. He reports good sleep, and states Valium is helpful. He reports ongoing AH of a buzzing sound, which comes and goes and has been quieter and less distressing, and AH of voices which he says are "great, fun to talk to." He denies command AH and thoughts of harming himself. He feels his medications are helping, and denies any side effects. He feels ready to return to the [facility] tomorrow and is aware of the COVID case there Summary of Past History Reviewed outpatient records from Dr. Alves: One progress note reviewed, signed 12/21/2019 but date of visit unclear. Patient reported lessening of psychotic symptoms, but ongoing, intermittent hallucinations. His speech was more organized, and he reported ongoing anxiety and insomnia. He was prescribed clonidine 0.1 mg at bedtime, temazepam 7.5 mg at bedtime, mirtazapine 15 mg at bedtime, perphenazine 4 mg every morning and 8 mg at bedtime, and melatonin and alprazolam were discontinued. Physical Exam Psychiatric Orientation: alert and cooperative Apperance: appropriately dressed, appropriately groomed and appeared stated age Eye Contact: good eye contact Motor Behavior: steady gait and station and no abnormal motor movements Speech: normal rate/rhythm/volume of speech Affect: + blunted affect "Good." Thought Process: goal directed thought process Thought Content: reality based without delusions Suicidal Thoughts: denies suicidal thoughts Homicidal Thoughts: denies homicidal thoughts Hallucinations: + auditory hallucinations; no visual hallucinations Cognition: recent memory grossly intact, attention grossly intact and language grossly intact Insight: + fair insight Judgement: + fair judgement Vital Signs (Past 24 Hours) Last Vital Signs Temp 36.3 C L 01/12/20 06:47 Pulse 77 01/12/20 06:47 Resp 18 01/12/20 06:47 BP 130/71 01/12/20 06:47 Pulse Ox 97 12/22/19 17:35 Results & Data ([facility]) Current Inpatient Medications Current Inpatient Medications: Current Inpatient Medications Acetaminophen (Tylenol) 650 mg PO Q4H PRN PRN Reason: Headache or Minor Fever Stop: 01/21/20 16:53 Last Admin: 01/03/20 12:02 Dose: 650 mg Documented by: Al Hydrox/Mg Hydrox/Simethicone (Maalox) 30 ml PO Q4H PRN PRN Reason: GI Upset Stop: 01/21/20 16:53 Aripiprazole (Abilify) 10 mg PO HS MAG Stop: 02/04/20 21:59 Last Admin: 01/11/20 21:12 Dose: 10 mg Documented by: Aspirin (Ecotrin Ectab) 81 mg PO DAILY MAG Stop: 01/22/20 08:59 Last Admin: 01/12/20 08:33 Dose: 81 mg Documented by: Aspirin Buffered (Ascriptin) 325 mg PO Q6H PRN PRN Reason: Pain Stop: 02/02/20 11:59 Last Admin: 01/09/20 21:05 Dose: 325 mg Documented by: Benztropine Mesylate (Cogentin) 0.5 mg PO DAILY PRN; Protocol PRN Reason: eps Stop: 01/21/20 16:57 Last Admin: 01/09/20 08:52 Dose: 0.5 mg Documented by: Bismuth Subsalicylate (Kaopectate) 15 ml PO PRN PRN PRN Reason: Loose Stool Stop: 01/21/20 16:53 Diazepam (Valium) 5 mg PO BID [facility] Stop: 01/28/20 10:29 Last Admin: 01/12/20 08:33 Dose: 5 mg Documented by: Docusate Sodium (Colace) 100 mg PO BID [facility] Stop: 01/21/20 20:59 Last Admin: 01/12/20 08:33 Dose: 100 mg Documented by: Haloperidol Lactate (Haldol) 5 mg IM Q6H PRN PRN Reason: Agitation Stop: 01/25/20 16:23 Hydroxyzine HCl (Vistaril) 50 mg PO HSZ PRN PRN Reason: Insomnia Stop: 01/21/20 16:53 Hydroxyzine HCl (Vistaril) 25 mg PO Q4H PRN PRN Reason: Anxiety Stop: 01/21/20 16:53 Magnesium Hydroxide (Milk Of Magnesia) 30 ml PO DAILY PRN PRN Reason: Constipation Stop: 01/21/20 16:53 Melatonin (Melatonin) 3 mg PO HSZ PRN; Protocol PRN Reason: Sleep Stop: 01/22/20 11:50 Sodium Chloride (Murtaugh Nasal) 1 - 2 sprays NA PRN PRN PRN Reason: Nasal Dryness/Congestion Stop: 01/21/20 16:53 Temazepam (Restoril) 7.5 mg PO HSZ MAG Stop: 01/21/20 21:59 Last Admin: 01/11/20 21:12 Dose: 7.5 mg Documented by: Mental Health & Subst Abuse Tx Psychiatrist Name of Psychiatrist: [facility] - Dr. Alves Psychiatrist's Date of Appointment with Psychiatrist: 01/21/20 Time of Appointment with Psychiatrist: 12:50 p.m. Psychiatric Appointment Comment: Telehealth Therapist Name of Therapist: None Oil Laboratory Analyst Name of Oil Laboratory Analyst: Shruti Mcbride Phone Number for Oil Laboratory Analyst: [phone] Case Management Appointment Comment: Will follow up with you Post Discharge Appointments Primary Care Physician Name Of Family Doctor: [facility] - Dr. Jeff Lopez Primary Care Time of Appointment with PCP: Follow up as needed Provider Appointment Comment: [address], [address], [place], [place] [address] Neurologist Name of Neurologist: [facility] - Dr. Caal Neurologist's Date of Appointment with Neurologist: 02/02/20 Time of Appointment with Neurologist: 10:00 a.m. Neurology Appointment Comment: [address] [facility], [address], [place] [address] Contact Information Discharge Discharge Address: [address] [place] [address] Contact Information Comment: JERRELL CRR (1) Hematuria Hematuria type: other microscopic Qualified Code(s): R31.29 - Other microscopic hematuria (2) Schizophrenia Schizophrenia type: unspecified Qualified Code(s): F20.9 - Schizophrenia, unspecified
[2020-01-12] MEDS: ARIPiprazole 10 MG TAB PO SCH (21:00)
[2020-01-12] MEDS: TEMAZEPAM 7.5 MG CAPSULE PO SCH (21:01)
[2020-01-13] MEDS: ASPIRIN 81 MG ECTAB PO SCH (08:54)
[2020-01-13] MEDS: DOCUSATE SODIUM 100 MG CAP PO SCH (08:54)
[2020-01-13] MEDS: diazePAM 5 MG TABLET PO SCH (08:54)
--- NOTE | 2020-01-13 12:32 | Discharge Summary ---
Date of Service January 13, 2020 History of Present Illness The patient is well-known to me from multiple past episodes of care, most recently on our unit for 36 days after a serious suicide attempt by acetaminophen overdose, and discharged 11/19/2019. During that hospitalization, he had multiple medication adjustments and several different medication trials (detailed below), and was ultimately discharged on perphenazine 4 mg every morning and 8 mg every 5 p.m., temazepam 7.5 mg at bedtime, benztropine 0.5 mg daily as needed for EPS, melatonin 10 mg at bedtime as needed insomnia, and docusate 100 mg twice daily. He presented to the ER yesterday, 12/22/2019, reporting suicidal ideation with thoughts to overdose on acetaminophen, in the context of a worsening buzzing sound in his right ear which causes him to feel agitated and suicidal. He said he had been not able to sleep for 5 or 6 nights, so contacted his outpatient psychiatrist Dr. Alves, who prescribed temazepam. He reported adherence with his medication regimen, did not feel safe returning to the [facility], and requested inpatient treatment. He was mildly hypertensive in the ER, vital signs otherwise normal. Admission labs: CBC normal, CMP notable for sodium 134, glucose 173, normal LFTs, TSH 1.970, UA notable for trace ketones 1+ blood, trace leukocyte esterase, and 10-30 RBCs. UDS negative. On my assessment, he reports mood worsened 1 to 2 weeks prior to hospitalization in the context of worsening auditory hallucinations of voices and a buzzing sound in his right ear. Although his auditory hallucinations are longstanding, when they are exacerbated, they are overwhelming and he often develops suicidal thoughts. He denies any recent medication changes, but [facility] staff report that all of his medications were changed after seeing his outpatient psychiatrist, and that he was put back on the medications he was taking prior to hospital ization, and was noticeably more irritable and depressed. Per external medication history, Dr. Alves continued the perphenazine that he was discharged from the hospital on, but discontinued temazepam and resumed alprazolam 0.5 mg on 11/23/2019, mirtazapine 7.5 mg, and clonidine 0.1 mg at bedtime. The patient initially states that life at the [facility] for the past month has been "I guess okay," then says "it's miserable there, nobody talks to anybody." He spends his time "reading on the Internet, the news," but denies that this causes stress or contributes to depressed mood. He has been taking daily walks outside, and reports stable appetite, with no weight changes. He states that sleep worsened about a week ago, and he did not sleep at all for 6 days, until he was put back on temazepam. He is unable to identify goals for hospitalization. Physical Exam Psychiatric Orientation: alert and cooperative Apperance: appropriately dressed, appropriately groomed and appeared stated age Eye Contact: good eye contact Motor Behavior: steady gait and station and no abnormal motor movements Speech: normal rate/rhythm/volume of speech Affect: euthymic affect and mood congruent with affect "Good, great." Thought Process: goal directed thought process and linear/logical thought process Thought Content: reality based without delusions Suicidal Thoughts: denies suicidal thoughts Homicidal Thoughts: denies homicidal thoughts Hallucinations: + auditory hallucinations; no visual hallucinations AH of voices which are intermittent. Denies command AH, denies that they are distressing or distracting. Cognition: recent memory grossly intact, attention grossly intact and language grossly intact Insight: + fair insight Judgement: + fair judgement Vital Signs (Past 24 Hours) Last Vital Signs Temp 36.4 C L 01/13/20 11:12 Pulse 90 01/13/20 11:12 Resp 18 01/13/20 11:12 BP 115/71 01/13/20 11:12 Pulse Ox 97 01/13/20 11:12 Principal Diagnosis Schizophrenia Psychiatric Data Check was hospitalized for 22 days. On admission, he was resumed on perphenazine and temazepam, the regimen he had been on at the time of discharge from our unit 1 month prior. [facility] staff had noted that his mood and psychotic symptoms worsened after discharge when several medications that had been stopped in the hospital were resumed (mirtazapine, clonidine, and alprazolam). He had signed in voluntarily, but a 306 conversion hearing was held on 12/24/2019, as he is on a 305 commitment. He was started on diazepam 5 mg twice daily on 12/25/2019 as he continued to report extremely loud and distressing auditory hallucinations of buzzing and chirping sounds and voices commanding him to hurt himself or threatening to kill him. His previous medication trials were reviewed at length, and the only medication he identified that had been helpful was diazepam. He agreed to allow [facility] staff to hold all of his medications and dispense them to him daily, to reduce the risk of misuse/abuse. He reported good effect, tolerated the medication well, and did not demonstrate side effects. He remained suicidal during the initial part of his hospitalization, stating that the auditory hallucinations were intolerable, and after several days, began refusing his antipsychotic. He became increasingly irritable, and several days later, agreed to a retrial of olanzapine, which he had taken during previous hospitalizations with limited effect. It was resumed, but he continued to refuse medications at time, and on 01/01/2020 he was placed on medications over objection with IM olanzapine for refusal. A couple of days later, he agreed to a trial of aripiprazole, which was titrated to 10 mg daily and well- tolerated. He initially agreed to consider the long-acting injectable formulation, but later refused. He reported gradual improvement of the auditory hallucinations, which became more pleasant, were no longer negative or commanding, and instead were telling jokes and stories, which he enjoyed. His affect improved significantly, as he was brighter, euthymic, and interacting appropriately with staff and peers. Suicidal ideation resolved, and he became more focused on discharge and leaving the hospital. Early in his hospital stay he agreed to a referral for individual therapy, but later changed his mind and declined this. Day of Discharge Assessment Staff report discharge plans have been coordinated with the [facility], and that they are staff spoke with the patient regarding COVID positive residents. He agreed to follow the infection control precautions they have in place, and stated he felt ready to leave the hospital and return to the [facility]. On my assessment, he states that his mood is "good," and that he is looking forward to leaving the hospital and returning to the [facility]. He denies side effects to medications, feels they are helpful, and is willing to follow-up with his outpatient clinicians. He states auditory hallucinations have improved significantly from admission, are quieter, less frequent, and no longer threatening or commanding. He denies thoughts of harming himself or anyone else, denies paranoia, and states mood has been good and stable for at least a week now. He denies problems with sleep or appetite, and is performing ADLs independently. Transition of Care Transition Of Care Record: was reviewed with the patient Advance Directives Advance Directives Information Provided: Yes Advance Directives: No Mental Health Advance Directive: No Advance Directives on File: No Living Will: No Power of Director Of Home Health Services: No Advance Directives Reason:: Declines as Mental Health Visit. Risk Factors Assessment Risk factors addressed by admission to the inpatient unit, use of psychotropic medications, participating in groups and therapy, working on healthy coping skills and discharge safety plan, involvement of outpatient treatment team (psychiatrist, long term staff, and assistant case manager), and use of IOC. Patient has demonstrated improvement in mood and psychotic symptoms, resolution of SI, is taking meds as directed and tolerating them well, and has consistently denied HI and thoughts of harming others. He has not been aggressive nor made threats toward others. He is completing ADLs independently, eating and sleeping well, and stating willingness to follow up with outpatient treatment. He is requesting discharge, and as he is no longer at acute risk of harm to himself or others, can be discharged at this time. He is on a 305 IOC. Male: Yes : Yes Do You Have Access To A Gun?: No Health Problems: Yes Mental Health Diagnoses: Yes Substance Use Disorders: Yes Previous Attempt: Yes Previous Attempt; Highly Lethal: Yes Family History of Suicide: Yes Previous Psychiatric Hospitalization: Yes Hopelessness: Yes Smoker: Yes Protective Factors Assessment Uatsdin Beliefs: No : No Responsible for Young Children: No Employed: No Stable Relationships: No Supportive Family: No Good Rapport with Provider: Yes Tobacco Cessation at Discharge Tobacco Cessation Medication Prescribed at Discharge: Not Applicable/Non-Smoker Total Time Total Time Spent: Greater Than 30 Minutes Total Time Includes: Examination of the patient, Discharge Planning and Medication Reconciliation Discharge Data Lab Results 12/22/19 12/22/19 12/22/19 14:30 14:30 15:45 WBC 9.99 RBC 5.01 Hgb 16.0 Hct 46.4 MCV 92.6 MCH 31.9 MCHC 34.5 RDW Std Deviation 43.4 RDW Coeff of Namita 12.9 Plt Count 301 MPV 8.8 Immature Gran % (Auto) 0.1 Neut % (Auto) 73.6 Lymph % (Auto) 15.0 [place] % (Auto) 8.6 Eos % (Auto) 2.4 Baso % (Auto) 0.3 Immature Gran # (Auto) 0.01 Neut # (Auto) 7.35 H Lymph # (Auto) 1.50 [place] # (Auto) 0.86 H Eos # (Auto) 0.24 Baso # (Auto) 0.03 Sodium Potassium Chloride Carbon Dioxide Anion Gap BUN Creatinine Est Cr Clr Drug Dosing Est GFR ( Amer) Est GFR (Non-Af Amer) BUN/Creatinine Ratio Glucose Calcium Total Bilirubin AST ALT Alkaline Phosphatase Total Protein Albumin Globulin Albumin/Globulin Ratio TSH Urine Color Yellow Urine Appearance Clear Urine pH 7.5 Ur Specific [place] 1.013 Urine Protein Negative Urine Glucose (UA) Negative Urine Ketones Trace H Urine Blood 1+ H Urine Nitrite Negative Urine Bilirubin Negative Urine Urobilinogen Negative Ur Leukocyte Esterase Trace H Urine WBC (Auto) 1-5 Urine RBC (Auto) 10-30 H U Hyaline Cast (Auto) 1-5 U Epithel Cells (Auto) 0-5 Urine Bacteria (Auto) Negative Salicylates Urine Opiates Screen Neg Ur Methadone, Qual Neg Acetaminophen Urine Barbiturates Neg Ur Phencyclidine (PCP) Neg U Amphetamin/Meth Scrn Neg MDMA (Ecstasy) Screen Neg U Benzodiazepines Scrn Neg Ur Cocaine Metabolite Neg U Marijuana (THC) Screen Neg Ethyl Alcohol mg/dL 12/22/19 12/22/19 12/22/19 15:45 15:45 15:45 WBC RBC Hgb Hct MCV MCH MCHC RDW Std Deviation RDW Coeff of Namita Plt Count MPV Immature Gran % (Auto) Neut % (Auto) Lymph % (Auto) [place] % (Auto) Eos % (Auto) Baso % (Auto) Immature Gran # (Auto) Neut # (Auto) Lymph # (Auto) [place] # (Auto) Eos # (Auto) Baso # (Auto) Sodium 134 L Potassium 3.8 Chloride 101 Carbon Dioxide 22 Anion Gap 11.0 BUN 14 Creatinine 0.83 Est Cr Clr Drug Dosing 74.1 Est GFR ( Amer) 101.2 Est GFR (Non-Af Amer) 87.3 BUN/Creatinine Ratio 17.3 Glucose 173 H Calcium 9.4 Total Bilirubin 0.7 AST 24 ALT 31 Alkaline Phosphatase 105 Total Protein 8.0 Albumin 4.2 Globulin 3.8 Albumin/Globulin Ratio 1.1 TSH 1.970 Urine Color Urine Appearance Urine pH Ur Specific [place] Urine Protein Urine Glucose (UA) Urine Ketones Urine Blood Urine Nitrite Urine Bilirubin Urine Urobilinogen Ur Leukocyte Esterase Urine WBC (Auto) Urine RBC (Auto) U Hyaline Cast (Auto) U Epithel Cells (Auto) Urine Bacteria (Auto) Salicylates < 1.7 L Urine Opiates Screen Ur Methadone, Qual Acetaminophen < 2 L Urine Barbiturates Ur Phencyclidine (PCP) U Amphetamin/Meth Scrn MDMA (Ecstasy) Screen U Benzodiazepines Scrn Ur Cocaine Metabolite U Marijuana (THC) Screen Ethyl Alcohol mg/dL < 3.0 Hospital Course (1) Suicidal ideation: 12/22 -every 15 minute checks for safety. -Continue inpatient treatment, signed in voluntarily but as he is on a 305 IOC, we will have a 306 conversion hearing tomorrow. Patient advised and aware. -Encourage group attendance, work on healthy coping skills and discharge safety plan. 01/12 - patient has been consistently denying SI, has not engaged in SIB or aggressive behavior. He has agreed that the [facility] staff will hold his medications and dispense them to him daily. (2) Schizophrenia: 12/22 -resume medication regimen he was on at the time of discharge 1 month ago, as he was doing well on that combination of medications, and per her [facility] staff worsened after some of his previous medications (mirtazapine, clonidine, and alprazolam) were resumed shortly after discharge. Spoke with his outpatient psychiatrist to coordinate care regarding medications. -Continue perphenazine 4 mg every morning and 8 mg q. 1700 hrs., temazepam 7.5 mg at bedtime, melatonin 10 mg at bedtime as needed insomnia, and benztropine 0.5 mg as needed for EPS. -Offer alprazolam 0.5 mg twice daily as needed anxiety/panic. -Treatment planning meeting to include [facility] staff, his outpatient assistant case manager, and will invite outpatient psychiatrist as well, to be held after his commitment hearing tomorrow. He has been refusing recommendations for outpatient therapy for some time, and unaware of any other services available in the community currently, as clubhouse/psych rehab close due to pandemic. 12/23 -306 hearing held, now on a 305 involuntary commitment. We will need to transition back to [facility] at discharge. -Treatment planning meeting held -will send medications to [place] mail order pharmacy at discharge. -Patient indicates willingness to consider outpatient therapy, which is indicated but he has always refused in the past. -Patient has a history of abusing benzodiazepines, but also has significant distress due to tinnitus and chronic insomnia, for which temazepam has been helpful. Benefits includes observed ability to tolerate low-dose temazepam without significant side effects and efficacy of temazepam with failure of multiple other medications for sleep/anxiety/hallucinations. Risks include potential for abuse, intentional overdose, ongoing suicidality with recent suicide attempt by overdose. We attempted to mitigate these by coordinating a plan for [facility] staff to hold all of the patient's medications and dispense them daily, so that he would not have access to large amounts of pills which would reduce the potential for abuse or intentional overdose. If he is not willing to do this, the risks likely outweigh the benefits, and benzodiazepines should be discontinued. -Ongoing auditory hallucinations as above; increase perphenazine to 8 mg twice daily. -Fasting labs for monitoring on an antipsychotic reviewed from 02/2019: Glucose 83, FLP all values within normal limits. -Discontinue alprazolam, in order to avoid polypharmacy and worsening confusion. 12/24 -The patient continues to believe, as he has fairly consistently over the years, that he is being persecuted by various entities, possibly in the form of humans, or possibly powerful computers or robots that are seeking his , either by murdering him or by convincing him to commit suicide. His response to questions such as, "why do you suppose they would want to do that" generally is quite concrete, and he responds by saying things such as "because they want me , that is why." -The patient's report today is that he responds favorably to diazepam, not because that medication stops him from hearing the "voices" in the "buzzing" or "chirping" sounds that he hears, but because it reduces his anxiety so he is less apt to be overwhelmed by the distress that it causes him. Staff indicate that he does seem to have responded to a as needed diazepam 5 mg dose given last evening. There is a history of benzodiazepine abuse, and at his age we are reluctant to use benzodiazepines. However, based on past experience with this patient, there is a risk of his becoming fully uncooperative and incorporating this into his delusional system. There is no question but that the patient does experience significant distress associated with his perceptual disturbances and his paranoid delusions. He is responding favorably to the temazepam at bedtime and does have a history of responding to benzodiazepines, as long as they are given in modest dosages and are carefully monitored. Accordingly, he was placed diazepam 5 mg twice a day standing dose starting today. 12/25 - Pt remains depressed and increasingly irritable over the course of his stay thus far. Pt is more reality-based in his perception of the benefit of diazepam, admitting it helps the anxiety he experiences as a result of the "head buzzing" but not the head buzzing itself. Pt does request that the diazepam be available as needed instead of scheduled, but also wishes to increase the dose to three times a day. As patient is reporting dizziness, the request to increase the frequency of the medication was declined at this time, but it will be adjusted to be available twice daily as needed. - Pt is refusing to titrate his dose of perphenazine any further as he does not believe that "any antipsychotic has even been effective so why take more of it." Will order 4mg prn dose of perphenazine which can be offered to the patient for auditory hallucinations, though it is not clear he would request or accept if offered. - Pt maintains that he "will commit suicide as soon as I leave the hospital", and this remains a significant concern given his history of serious overdose and frequent admissions 12/26 - Growing increasingly irritable, only engaging with this provider for a limited period of time today - Continue perphenazine 8mg BID, though patient has been refusing the medication - Diazepam held yesterday as patient was observed to be cheeking the medication - will not resume at this time as patient is not able to participate in conversation to discuss appropriate administration of medications 12/27 - Pt remains irritable, with limited participation in interview - Pt continues to refuse to take perphenazine as he states it is contraindicated in dementia (pt reminded that this is not a formal diagnosis, and that multiple providers are recommending the medication) - Evaluate if patient may meet criteria for medications over objection if his medication refusal continues, as it is not reasonable to assume his symptoms will improve without pharmacological interventions. - Requesting only diazepam, but remains unable to engage in conversation regarding how he can reliably take this medication appropriately 12/28 -Patient remains unwilling to take perphenazine or engage in discussion of other antipsychotic options. He has had multiple failed trials and fairly severe side effects to previous antipsychotics, and additionally has poor insight into his illness, which complicates treatment. During his last hospitalization, he had a trial of ziprasidone which was ineffective, and clozapine caused altered mental status and EPS. He ultimately tolerated perphenazine and was discharged on that medication, but is now refusing to take it. Ideally, he would be on a long- acting injectable antipsychotic, but as he is not even been willing to take oral antipsychotics, this limits his options (as there are no immediate release injectable formulations of paliperidone, risperidone, or aripiprazole). I believe he will require medications over objection if he remains unwilling to take an antipsychotic, likely starting with IM haloperidol, as it has p.o., IM, and FARAH options. -Patient does report some relief with diazepam, and at this time I believe the benefits outweigh the risks. It is obviously not a good longer term medication for him given his history of benzodiazepine abuse as well as age and cognitive impairment, but it is the only medication that gives him relief from his current symptoms and that he is willing to take, so my hope is that if we can reduce his anxiety and distress level to some degree, he will be willing to take an antipsychotic medication to target his schizophrenic symptoms. He is agreeing to take the medication dissolved in water, which decreases the risk of cheeking. We will resume 5 mg twice daily. 12/29 - Remains very irritable, limited participation - Pt continues to refuse perphenazine. He was reminded of consideration for medications over objection if he remains unwilling to engage in a conversation about appropriate medications. Pt mentioned olanzapine, but did not verbalize commitment to taking it consistently. We will order olanzapine 5mg BID and continue to offer patient appropriate medications to target his ongoing auditory hallucinations and "head buzzing" - Has been complaint with diazepam dissolved in water 12/30 - Ongoing irritability limiting engagement in interview today - Pt was aware of recommendation to increase olanzapine to 10mg daily, with ongoing titration over time. Pt only willing to take the medication in the morning, and is refusing to increase dose past 5mg. Olanzapine 10mg was ordered, with staff informed patient could be provided with 5mg if he is only willing to take this amount. Based on patient's ongoing inappropriate requests regarding treatment, it remains highly likely he will require medications over objection in order to target his continued symptoms of schizophrenia. Pt aware that this is being considered, and continues to refuse to engage in conversation regarding appropriate treatment with oral medications. - Continues to be agreeable with diazepam and temazepam - pt made aware that this is insufficient treatment for his schizophrenia diagnosis. 12/31 - Ongoing irritability, but more willing to engage in conversation today. - Pt is currently agreeable with taking 5mg of olanzapine at bedtime, but refuses to go up on the dose beyond that. First opinion for medications over objection is written in chart. Second opinion was documented in Communication Note dated 01/01/2020. 5mg IM injection of olanzapine has been ordered for refusal of oral medications. - Pt continues to request higher doses of diazepam, as he believes it is the only thing that works for his auditory hallucinations. Pt continues to be informed that dose will not be adjusted beyond 5mg BID. - Pt did take a call from his outpatient psychiatric assistant case manager today 01/01 -Received first dose of olanzapine 5 mg last evening. Will continue through weekend 01/02 -Tolerating and compliant with oral olanzapine over the weekend. He asks about Abilify today and he was educated about that agent regarding treatment effect profile and, risks and benefits. He expressed interest in considering a nother trial and will review records for prior response and tolerability. Abilify might be a little more helpful for mood and is available in a long- acting injectable. -His somatic preoccupations associated with his psychosis are longstanding. Will add aspirin as needed for musculoskeletal pain at his request today. Reviewed no history of allergy and already on low-dose aspirin daily. 01/03 - Aripiprazole was reviewed in more detail today. Pt did request supplemental information regarding standard dosing and contraindications, which was printed from [employer] and provided to the patient. Pt is agreeable with re-trial of the medication. Discussed initiating at 5mg tonight, but patient was made aware of recommendation to titrate the medication to standard dosing as tolerated. At this time, patient is reporting interest in the possibility of an FARAH - and this can be discussed in greater detail over the next few days. - Pt continues to endorse auditory hallucinations and "static" or "chirping" - which he claims no medications have been particularly helpful with. Will continue to explore these reports, as they are highly linked to patient's suicidality. 01/04 - Pt remains agreeable with taking aripiprazole, but is only willing to take 10mg daily. Will titrate dose to 10mg this evening. He is now hesitant to consider an FARAH as he does not desire to endure the pain of the injection. Will continue to review with the patient for ongoing consideration. - Pt has been less irritable overall, but continues to make specific dictations regarding his treatment and medication recommendations. - Pt continues to report desire to return to the [facility] when discharged, but has not been able to productively discuss discharge and safety planning at this time. 01/05 - Continue aripiprazole 10mg daily. Pt still hesitant to consider FARAH, but can continue to offer information - Continues to be less irritable and is even brighter during interactions - joking and smiling intermittently - Pt continues to express desire to return to the [facility] after discharge. He feels more comfortable discussing discharge and safety plans as he feels his auditory hallucinations are more tolerable and suicidality has been reduced. 01/06 - Continue aripiprazole 10mg daily - patient reports willingness to consider Abilify Maintena, possibly agreeing to the injection as soon as tomorrow - Continues to be in better spirits today, reporting auditory hallucinations are more tolerable - Continues to engage in discussions regarding discharge planning - will coordinate with [facility] regarding discharge date - Discontinue MNPR as patient's behavior has been appropriate over the last several days 01/07 - Continue aripiprazole 10mg daily - patient again changing his mind, now saying he is unwilling for Abilify Maintena. Should patient eventually be willing to consider, would suggest dose of 300mg IM q4 weeks. Copay was reported to be $15 for Abilify Maintena. Oral aripiprazole 10mg tablets are available for a copay of $8. - Continue attempts to coordinate with the [facility] regarding discharge plans 01/10 Plan: continue current meds and treatment plan, phone contact with [facility] re: discharge planning on 01/11. 01/11 -Patient scheduled for discharge to the [facility] tomorrow. Schedule follow-up with his outpatient psychiatrist and continue to encourage individual psychotherapy. 01/12 - Discharge to [facility]. They requested a COVID test, ordered and will relay results to them when available. - Prescriptions sent for 30 days of aripiprazole and 10 days of diazepam. [facility] staff will hold all of his meds and dispense daily. F/u with Dr. Alves 01/20, and [facility]. Therapy recommended, but he declined. (3) Hematuria: 12/22 -hematuria noted on UA in the ER, has had this several times in the past as well. No sign of AMOS or UTI, and ER physician recommended outpatient follow-up with PCP, Dr. Lopez. (4) Memory changes: 12/22 -patient was seen by neurology just prior to discharge at the beginning of November; noted multiple risk factors for dementia, and recommended vitamin B12 level (1371), brain MRI to identify lesions contributing to cognitive impairment, and neuropsychological testing. She also recommended avoiding benzodiazepines. A brain MRI was done on the day of discharge and was notable for mild progressive nonspecific foci of increased T2 signal within the white matter, likely on a small vessel basis, but negative for acute intracranial findings, masses, subacute or acute infarction. He is scheduled to follow-up with Dr. Caal on 02/02/2020. Mental Health & Subst Abuse Tx Psychiatrist Name of Psychiatrist: [facility] - Dr. Alves Psychiatrist's Date of Appointment with Psychiatrist: 01/21/20 Time of Appointment with Psychiatrist: 12:50 p.m. Psychiatric Appointment Comment: Telehealth Psychiatrist Release of Information: Obtained, Reviewed and Signed Therapist Name of Therapist: . Talent Development Coordinator Name of Talent Development Coordinator: Shruti Mcbride Phone Number for Talent Development Coordinator: [phone] Case Management Appointment Comment: Will follow up with you Talent Development Coordinator Release of Information: Obtained, Reviewed and Signed Post Discharge Appointments Primary Care Physician Name Of Family Doctor: [facility] - Dr. Jeff Lopez Primary Care Date of Appointment with PCP: 01/18/20 Time of Appointment with PCP: 12:50 p.m. (In person) Provider Appointment Comment: [address], [address], [place] [address] Primary Care Release of Information: Obtained, Reviewed and Signed Neurologist Name of Neurologist: [facility] - Dr. Caal Neurologist's Date of Appointment with Neurologist: 02/02/20 Time of Appointment with Neurologist: 10:00 a.m. Neurology Appointment Comment: [address], [address], [place] [address] Smoking Cessation Counseling Tobacco Cessation Medication Prescribed at Discharge: Not Applicable/Non-Smoker Contact Information Discharge Discharge Address: [address] [place] [address], [place] [address] Contact Information Comment: [facility] Discharge Plan Discharge Items Patient Disposition: Home - Self-Care Reason For Visit: SI, SCHIZOPHRENIA Discharge Diagnosis: schizophrenia Condition on Discharge: Good Activity: Per Instructions section Lifting: Gradually increase as tolerated Non-emergency contact: Primary Care Provider, Psychiatrist and Air Pumper Call non-emergency contact if: you have any medication questions and your symptoms worsen Follow-up/Referrals: Jeff Lopez MD [Primary Care Provider] - Diet: Vegetarian (Lacto-Ovo) Addtl Attending Provider Instructions: SPECIAL CARE INSTRUCTIONS: 1. Follow through with your scheduled aftercare appointments. If unable to keep an appointment, please call to reschedule. -Psychotherapy has been recommended, but you declined. 2. Take your medication only as prescribed. Medication should not be changed or stopped without the approval of your doctor. In the event of worsening symptoms or concerns about side effects, contact your doctor immediately. 3. Utilize new healthy coping skills, anger management skills, and stress management skills learned during your hospitalization. Journal feelings and process them with a support person. Identify stressors or situations that may result in relapse, deterioration or inappropriate behaviors and develop a plan to deal with those issues. 4. If your coping skills are ineffective and you are in crisis, contact your outpatient providers for direction. If unable to reach your providers, please call the CAN HELP LINE AT or go to the closest Emergency Room. 5. Avoid alcohol and un-prescribed drugs. 6. You have been provided with the Mental Health Advance Directives Pamphlet for your review. AFTERCARE APPOINTMENTS: * Please call your insurance company prior to your scheduled appointment to confirm your aftercare providers are covered. Take your insurance information to your appointments. WHO TO CALL AND WHEN: Medical Emergencies: For questions or emergencies related to your hospital stay, please contact the Inpatient Behavioral Health Unit at [phone]. A psychiatric aides teacher is on-call 11/03 for the Behavioral Health Unit for emergencies At any time you feel your situation is an emergency, you may also call 911 immediately. Your Doctors Instructions noted above were prepared by provider Alison Campos MD. Pending Studies at Discharge: No Stand-Alone Forms: [facility], Smoking Cessation, Suicide Prevention Resources Medications and DC Order Prescriptions: New aripiprazole [Abilify] 10 mg Tablet 10 mg PO HS Qty: 30 RF: 0 diazepam 5 mg Tablet 5 mg PO BID Qty: 20 RF: 0 Continued aspirin [Aspirin Low Dose] 81 mg tablet,delayed release (DR/EC) 81 mg PO DAILY Qty: 30 RF: 2 temazepam 7.5 mg Capsule 7.5 mg PO HSZ Qty: 10 RF: 0 melatonin 10 mg tablet 10 mg PO HS PRN (Reason: insomnia) Qty: 0 RF: 0 docusate sodium 100 mg Tablet 100 mg PO BID RF: 0 benztropine 0.5 mg Tablet 0.5 mg PO DAILY PRN (Reason: prn) RF: 0 Discontinued perphenazine 8 mg tablet 8 mg PO 1700 Qty: 30 RF: 0 perphenazine 4 mg tablet 4 mg PO QAM Qty: 30 RF: 0 clonidine HCl 0.1 mg tablet 0.1 mg PO HS RF: 0 alprazolam 0.5 mg tablet 0.5 mg PO BID PRN (Reason: Anxiety) RF: 0 mirtazapine 15 mg tablet 7.5 mg PO HS RF: 0 Discharge Orders: Discharge Order (Routine); Ordered 01/13/20 Ordered By: Alison Campos Admission Data Admit Date/Time: 12/22/19 16:55 Attending Provider: Alison Campos Admit Provider: Alison Campos Primary Care Provider: Jeff Lopez Other Interventions: Discharge Summary Assessment (RN) Last Done: 01/13/20 11:12 PSY Interdisciplinary Discharge Planning Last Done: 01/13/20 11:10 Coding Level of Care Code 85683 D/C day mgmt > 30 min Diagnoses Suicidal ideation R45.851 Schizophrenia F20.9 Schizophrenia type: unspecified Hematuria R31.29 Hematuria type: other microscopic Memory changes R41.3
== END 2020-01-13 15:32 | disposition home or self-care (01) | DRG 885 ==
LOC: ED 14:03 → 3S 16:55

== ENCOUNTER 2020-02-09 11:45 | Inpatient (IN) ==
--- NOTE | 2020-02-09 12:20 | Emergency Department Note ---
Impression & Plan Schizophrenia, Dehydration ED Provider Note Provider: Jack Caal MD DATE OF SERVICE: 02/09/2020 CHIEF COMPLAINT: Mental health evaluation HISTORY OF PRESENT ILLNESS: Patient is a 74-year-old gentleman history of schizophrenia, hypertension, recent admission for acetaminophen overdose and psychiatric hospitalization presenting here via ambulance today for another mental health evaluation. Patient reportedly brought here for evaluation from [facility] where he stopped taking his medicine over the last at least week and now was not eating very much. Reports that he urinated himself in the common area several days ago. He has been smoking the building and against regulations and staff corrections he continues to do this and puts the cigarettes on a paper towel on a wooden table. They have concerns for his wellbeing and called crisis. Simón proceeded with a 302 petition form and he was brought here for further care. Patient's [facility] case fitter is present as well. Patient here declines to participate in the interview and is nonverbal but looking around the room sitting. He does not gesture will provide additional information. 302 petition is reviewed and is normal regular case fitter states that he seems not that far off his baseline and that sometimes he does this where he will participate. REVIEW OF SYSTEMS: Unable to obtain from the patient as he is nonverbal PAST MEDICAL HISTORY: As noted above MEDICATIONS: Not taking his current medication but medication list reviewed [facility]:Unable to obtain from the patient as he is nonverbal SOCIAL HISTORY: Currently residing in [facility] and is a smoker PHYSICAL EXAM: GENERAL: alert and oriented in no acute distress on sitting on the bed Head: normocephalic and atraumatic EYES: No injection, discharge or icterus. NECK: Trachea midline. ENT: Mucous membranes pink and moist. LUNGS: Airway patent. No retractions. Breath sounds clear with good air entry bilaterally. HEART: Regular rate and rhythm. No chest wall tenderness SKIN: Acyanotic, warm, dry, without rashes NEUROLOGICAL: Sitting quietly on the bed making eye contact and follow me around the room but will not verbalize. Not following commands at this time. Psych: Patient uncooperative with interview and would not speak but again tracks around the room. Patient's hypertension was referred to PCP HOSPITAL COURSE: 1224 Patient was first seen and H&P performed. 1736 discussed with case management and the 302 will be upheld will look for beds. Simón paz will assist 2024 Patient was accepted to [facility]. had an extensive bed search for other geriatric psychiatric facilities which was unsuccessful. Patient's laboratory studies and imaging reviewed. Differential includes Mood disorder, infection, hypoglycemia, electrolyte abnormalities, cardiac sources, intracerebral event, toxicologic, trauma, neurologic, as well as other pathologies. IMPRESSION/MEDICAL DECISION MAKING: Patient presents with noncompliance with outpatient 3 of 5 mental health treatment. Not taking medications and decreased oral intake. In urination event and history of UTI. Urinalysis here without evidence of infection. No evidence of Tylenol or salicylate overdose. Patient refuses to cooperate with exam and really will not interact or talk with me. Nonspecific leukocytosis 11.5 is notable. Patient does have ketones notable in the urine and mildly increased BUN consistent with likely some mild dehydration. Creatinine is not significantly affected yet however. Given a liter of IV fluid. Leave at this time patient needs further involuntary inpatient mental health care and 302 completed. Psychiatric counter caser assisted with evaluation. Referrals will be made. Extensive search was made for geriatric psychiatric facilities but none were available. COVID test was completed for placement and was negative. Given this finding additional referral to [facility]. was made the patient accepted there for further inpatient psychiatric care. Patient continues to be nonverbal and intermittently refuse vital signs. DIAGNOSIS: Dehydration, involuntary mental health commitment DISPOSITION: Inpatient psychiatric placement. Past Med/Surg History Social History Preferred Language: Somali Communication Ability: Effective Right Of Way Appraiser Required: No Beliefs That Will Affect Care: None Current Living Situation: Alone Feels Safe at Home: Yes Smoking Status: Unknown if ever smoked Hx Alcohol Use: No Hx Substance Use: No Allergies Allergies Allergy/AdvReac Type Severity Reaction Status Date / Time No Known Allergies Allergy Verified 12/22/19 14:52 Home Meds Home Medications Medication Instructions Recorded Confirmed clonidine HCl 0.1 mg PO HS 02/09/20 02/09/20 perphenazine 8 mg PO BID 02/09/20 02/09/20 temazepam 7.5 mg PO HS 02/09/20 02/09/20 Previous Rx's Medication Instructions Recorded melatonin 10 mg PO HS PRN #0 tab 11/19/19 aripiprazole [Abilify] 10 mg PO HS #30 tab 01/13/20 diazepam 5 mg PO BID #20 tab 01/13/20 Results & Data (ED) Vital Signs Vital Signs - 24 hr 02/09/20 11:45 02/09/20 13:35 02/09/20 18:46 Temperature 36.8 C Temperature Source Oral Pulse Rate 97 H Pulse Rate [Left Finger] 105 H 95 H Respiratory Rate 18 18 17 Respiratory Effort / Characteristics Non-Labored Spontaneous Non-Labored Spontaneous Respiratory Depth Normal Normal Respiratory Pattern Regular Blood Pressure 140/84 Blood Pressure [Left Arm] 126/93 133/67 Blood Pressure Mean 102 Blood Pressure Mean [Left Arm] 104 89 Pulse Oximetry 98 97 97 Oxygen Delivery Method Room Air Room Air Room Air Sepsis Recent Fever Within 48 Hours No Sepsis New/Unexplained Change in Mental Status No Sepsis Action Taken by Nursing No Action Required Laboratory Data Result diagrams: 02/09/20 12:47 02/09/20 12:47 Lab Results 02/09/20 02/09/20 02/09/20 Range/Units 12:47 12:47 12:47 WBC 11.58 H (4.8-10.8) K/uL RBC 5.35 (4.7-6.1) M/uL Hgb 17.0 (14.0-18.0) g/dL Hct 49.6 (42-52) % MCV 92.7 (80-100) fL MCH 31.8 (25-34) pg MCHC 34.3 (32-36) g/dL RDW Std Deviation 43.8 (36.4-46.3) fL RDW Coeff of Namita 13.0 (11.5-14.5) % Plt Count 394 (130-400) K/uL MPV 9.5 (7.4-10.4) fL Immature Gran % (Auto) 0.2 % Neut % (Auto) 62.6 % Lymph % (Auto) 21.9 % [place] % (Auto) 7.5 % Eos % (Auto) 7.5 % Baso % (Auto) 0.3 % Neut # (Auto) 7.24 H (1.4-6.5) K/uL Lymph # (Auto) 2.54 (1.2-3.4) K/uL [place] # (Auto) 0.87 H (0.11-0.59) K/uL Eos # (Auto) 0.87 H (0-0.5) K/uL Baso # (Auto) 0.04 (0-0.2) K/uL Immature Gran # (Auto) 0.02 (0.00-0.02) K/uL Sodium 137 (136-145) mmol/L Potassium 3.2 L (3.5-5.1) mmol/L Chloride 104 (98-107) mmol/L Carbon Dioxide 19 L (21-32) mmol/L Anion Gap 14.0 H (3-11) BUN 29 H (7-18) mg/dl Creatinine 0.91 (0.6-1.4) mg/dl Est Cr Clr Drug Dosing Not Reportable Est GFR ( Amer) 96.6 Est GFR (Non-Af Amer) 83.3 BUN/Creatinine Ratio 32.2 H (10-20) Glucose 87 (70-99) mg/dl Calcium 9.3 (8.5-10.1) mg/dl Total Bilirubin 0.8 (0.2-1) mg/dl AST 19 (15-37) U/L ALT 34 (12-78) U/L Alkaline Phosphatase 136 H (45-117) U/L Total Protein 8.7 H (6.4-8.2) gm/dl Albumin 4.0 (3.4-5.0) gm/dl Globulin 4.7 H (2.5-4.0) gm/dl Albumin/Globulin Ratio 0.9 (0.9-2) TSH 0.452 (0.300-4.500) uIu/ml Urine Color Urine Appearance (Clear) Urine pH (4.5-7.5) Ur Specific [place] (1.000-1.030) Urine Protein (Negative) Urine Glucose (UA) (Negative) Urine Ketones (Negative) Urine Blood (Negative) Urine Nitrite (Negative) Urine Bilirubin (Negative) Urine Urobilinogen (Negative) Ur Leukocyte Esterase (Negative) Urine WBC (Auto) (0-5) /hpf Urine RBC (Auto) (0-4) /hpf U Hyaline Cast (Auto) (0-5) /lpf U Epithel Cells (Auto) (0-5) /lpf Urine Bacteria (Auto) (Negative) Salicylates 3.1 (2.8-20) mg/dl Urine Opiates Screen (Neg) Ur Methadone, Qual (Neg) Acetaminophen < 2 L (10-30) ug/ml Urine Barbiturates (Neg) Ur Phencyclidine (PCP) (Neg) U Amphetamin/Meth Scrn (Neg) MDMA (Ecstasy) Screen (Neg) U Benzodiazepines Scrn (Neg) Ur Cocaine Metabolite (Neg) U Marijuana (THC) Screen (Neg) Ethyl Alcohol mg/dL (0-3) mg/dl COVID-19 PCR (Negative) SARS-CoV-2 RNA (RT-PCR) 02/09/20 02/09/20 02/09/20 Range/Units 12:47 13:15 13:15 WBC (4.8-10.8) K/uL RBC (4.7-6.1) M/uL Hgb (14.0-18.0) g/dL Hct (42-52) % MCV (80-100) fL MCH (25-34) pg MCHC (32-36) g/dL RDW Std Deviation (36.4-46.3) fL RDW Coeff of Namita (11.5-14.5) % Plt Count (130-400) K/uL MPV (7.4-10.4) fL Immature Gran % (Auto) % Neut % (Auto) % Lymph % (Auto) % [place] % (Auto) % Eos % (Auto) % Baso % (Auto) % Neut # (Auto) (1.4-6.5) K/uL Lymph # (Auto) (1.2-3.4) K/uL [place] # (Auto) (0.11-0.59) K/uL Eos # (Auto) (0-0.5) K/uL Baso # (Auto) (0-0.2) K/uL Immature Gran # (Auto) (0.00-0.02) K/uL Sodium (136-145) mmol/L Potassium (3.5-5.1) mmol/L Chloride (98-107) mmol/L Carbon Dioxide (21-32) mmol/L Anion Gap (3-11) BUN (7-18) mg/dl Creatinine (0.6-1.4) mg/dl Est Cr Clr Drug Dosing Est GFR ( Amer) Est GFR (Non-Af Amer) BUN/Creatinine Ratio (10-20) Glucose (70-99) mg/dl Calcium (8.5-10.1) mg/dl Total Bilirubin (0.2-1) mg/dl AST (15-37) U/L ALT (12-78) U/L Alkaline Phosphatase (45-117) U/L Total Protein (6.4-8.2) gm/dl Albumin (3.4-5.0) gm/dl Globulin (2.5-4.0) gm/dl Albumin/Globulin Ratio (0.9-2) TSH (0.300-4.500) uIu/ml Urine Color Dark Yellow Urine Appearance Clear (Clear) Urine pH 5.5 (4.5-7.5) Ur Specific [place] 1.028 (1.000-1.030) Urine Protein Trace H (Negative) Urine Glucose (UA) Negative (Negative) Urine Ketones 4+ H (Negative) Urine Blood Trace H (Negative) Urine Nitrite Negative (Negative) Urine Bilirubin Negative (Negative) Urine Urobilinogen Negative (Negative) Ur Leukocyte Esterase Negative (Negative) Urine WBC (Auto) 1-5 (0-5) /hpf Urine RBC (Auto) 0-4 (0-4) /hpf U Hyaline Cast (Auto) 1-5 (0-5) /lpf U Epithel Cells (Auto) 10-20 H (0-5) /lpf Urine Bacteria (Auto) Negative (Negative) Salicylates (2.8-20) mg/dl Urine Opiates Screen Neg (Neg) Ur Methadone, Qual Neg (Neg) Acetaminophen (10-30) ug/ml Urine Barbiturates Neg (Neg) Ur Phencyclidine (PCP) Neg (Neg) U Amphetamin/Meth Scrn Neg (Neg) MDMA (Ecstasy) Screen Neg (Neg) U Benzodiazepines Scrn Pos H (Neg) Ur Cocaine Metabolite Neg (Neg) U Marijuana (THC) Screen Neg (Neg) Ethyl Alcohol mg/dL < 3.0 (0-3) mg/dl COVID-19 PCR (Negative) SARS-CoV-2 RNA (RT-PCR) 02/09/20 02/09/20 Range/Units 18:05 18:05 WBC (4.8-10.8) K/uL RBC (4.7-6.1) M/uL Hgb (14.0-18.0) g/dL Hct (42-52) % MCV (80-100) fL MCH (25-34) pg MCHC (32-36) g/dL RDW Std Deviation (36.4-46.3) fL RDW Coeff of Namita (11.5-14.5) % Plt Count (130-400) K/uL MPV (7.4-10.4) fL Immature Gran % (Auto) % Neut % (Auto) % Lymph % (Auto) % [place] % (Auto) % Eos % (Auto) % Baso % (Auto) % Neut # (Auto) (1.4-6.5) K/uL Lymph # (Auto) (1.2-3.4) K/uL [place] # (Auto) (0.11-0.59) K/uL Eos # (Auto) (0-0.5) K/uL Baso # (Auto) (0-0.2) K/uL Immature Gran # (Auto) (0.00-0.02) K/uL Sodium (136-145) mmol/L Potassium (3.5-5.1) mmol/L Chloride (98-107) mmol/L Carbon Dioxide (21-32) mmol/L Anion Gap (3-11) BUN (7-18) mg/dl Creatinine (0.6-1.4) mg/dl Est Cr Clr Drug Dosing Est GFR ( Amer) Est GFR (Non-Af Amer) BUN/Creatinine Ratio (10-20) Glucose (70-99) mg/dl Calcium (8.5-10.1) mg/dl Total Bilirubin (0.2-1) mg/dl AST (15-37) U/L ALT (12-78) U/L Alkaline Phosphatase (45-117) U/L Total Protein (6.4-8.2) gm/dl Albumin (3.4-5.0) gm/dl Globulin (2.5-4.0) gm/dl Albumin/Globulin Ratio (0.9-2) TSH (0.300-4.500) uIu/ml Urine Color Urine Appearance (Clear) Urine pH (4.5-7.5) Ur Specific [place] (1.000-1.030) Urine Protein (Negative) Urine Glucose (UA) (Negative) Urine Ketones (Negative) Urine Blood (Negative) Urine Nitrite (Negative) Urine Bilirubin (Negative) Urine Urobilinogen (Negative) Ur Leukocyte Esterase (Negative) Urine WBC (Auto) (0-5) /hpf Urine RBC (Auto) (0-4) /hpf U Hyaline Cast (Auto) (0-5) /lpf U Epithel Cells (Auto) (0-5) /lpf Urine Bacteria (Auto) (Negative) Salicylates (2.8-20) mg/dl Urine Opiates Screen (Neg) Ur Methadone, Qual (Neg) Acetaminophen (10-30) ug/ml Urine Barbiturates (Neg) Ur Phencyclidine (PCP) (Neg) U Amphetamin/Meth Scrn (Neg) MDMA (Ecstasy) Screen (Neg) U Benzodiazepines Scrn (Neg) Ur Cocaine Metabolite (Neg) U Marijuana (THC) Screen (Neg) Ethyl Alcohol mg/dL (0-3) mg/dl COVID-19 PCR NEGATIVE (Negative) SARS-CoV-2 RNA (RT-PCR) Cancelled Administered Medications Discontinued Medications Lactated Ringer's (Lr) 1,000 mls @ 999 mls/hr IV .[id number] ONE Stop: 02/09/20 15:11 Last Infusion: 02/09/20 15:34 Dose: 0 mls/hr Documented by: [id number] Admin: 02/09/20 14:29 Dose: 999 mls/hr Documented by: [id number] Discharge Plan Visit Data Chief Complaint: Mental Health Evaluation ED Provider: Jack Caal Discharge Problem: Schizophrenia, Dehydration Patient Disposition: Transfer Behavioral Health Fac Forms Stand Alone Forms: [facility], Suicide Prevention Resources Prescriptions Prescriptions: No Action melatonin 10 mg tablet 10 mg PO HS PRN (Reason: insomnia) Qty: 0 RF: 0 temazepam 7.5 mg capsule 7.5 mg PO HS RF: 0 perphenazine 8 mg Tablet 8 mg PO BID RF: 0 clonidine HCl 0.1 mg tablet 0.1 mg PO HS RF: 0 aripiprazole [Abilify] 10 mg Tablet 10 mg PO HS Qty: 30 RF: 0 diazepam 5 mg Tablet 5 mg PO BID Qty: 20 RF: 0 Referrals Referrals: Jeff Lopez MD [Primary Care Provider] -
[2020-02-09 13:02] LABS: Basophils # (auto) 0.04 K/uL (0-0.2); Basophils % (auto) 0.3 %; Eosinophils # (auto) 0.87 K/uL (0-0.5); Eosinophils % (auto) 7.5 %; Hematocrit (blood only) 49.6 % (42-52); Immature Granulocytes # (auto) 0.02 K/uL (0.00-0.02); Immature Granulocytes % (auto) 0.2 %; Lymphocytes # (auto) 2.54 K/uL (1.2-3.4); Lymphocytes % (auto) 21.9 %; Mean Corpuscular Hemoglobin 31.8 pg (25-34); Mean Corpuscular Hgb Conc 34.3 g/dL (32-36); Mean Corpuscular Volume 92.7 fL (80-100); Mean Platelet Volume 9.5 fL (7.4-10.4); Monocytes # (auto) 0.87 K/uL (0.11-0.59); Monocytes % (auto) 7.5 %; Neutrophils # (auto) 7.24 K/uL (1.4-6.5); Neutrophils % (auto) 62.6 %; Platelet Count 394 K/uL (130-400); RDW Standard Deviation 43.8 fL (36.4-46.3); Red Blood Count 5.35 M/uL (4.7-6.1); White Blood Count 11.58 K/uL (4.8-10.8)
[2020-02-09 13:25] LABS: Glucose 87 mg/dl (70-99)
[2020-02-09 13:26] LABS: Alanine Aminotransferase 34 U/L (12-78); Aspartate Aminotransferase 19 U/L (15-37); BUN Creatinine Ratio 32.2 (10-20); Blood Urea Nitrogen 29 mg/dl (7-18); Calcium 9.3 mg/dl (8.5-10.1); Carbon Dioxide 19 mmol/L (21-32); Chloride 104 mmol/L (98-107); Est GFR (African American) 96.6; Est GFR (Non-African American) 83.3; Potassium 3.2 mmol/L (3.5-5.1); Sodium 137 mmol/L (136-145)
[2020-02-09 13:27] LABS: Acetaminophen < 2 ug/ml (10-30); Salicylate 3.1 mg/dl (2.8-20)
[2020-02-09 13:29] LABS: Appearance Urine Clear (Clear); Bacteria Urine Automated Negative (Negative); Blood Urine Trace (Negative); Color Urine Dark Yellow; Glucose Urine UA Negative (Negative); Ketones Urine 4+ (Negative); Leukocyte Esterase Urine Negative (Negative); Nitrite Urine Negative (Negative); Protein Urine Trace (Negative); RBC Urine Automated 0-4 /hpf (0-4); Specific Gravity Urine 1.028 (1.000-1.030); Urobilinogen Urine Negative (Negative); pH Urine 5.5 (4.5-7.5)
[2020-02-09 13:34] LABS: Albumin Globulin Ratio 0.9 (0.9-2); Alkaline Phosphatase 136 U/L (45-117); Bilirubin,Total 0.8 mg/dl (0.2-1); Globulin 4.7 gm/dl (2.5-4.0); Thyroid Stimulating Hormone 0.452 uIu/ml (0.300-4.500); Total Protein 8.7 gm/dl (6.4-8.2)
[2020-02-09 13:43] LABS: Bilirubin Urine Negative (Negative); Ictotest Urine Negative (Negative)
[2020-02-09 14:10] LABS: Amphetamines+Metham, Urine Neg (Neg); Barbiturates, Urine Neg (Neg); Benzodiazepine, Urine Pos (Neg); Cocaine, Urine Neg (Neg); MDMA (Ecstacy), Urine Neg (Neg); Methadone, Urine Neg (Neg); Opiate, Urine Neg (Neg); Phencyclidine, Urine Neg (Neg)
[2020-02-09] MEDS ORDERED: LACTATED RINGER'S 1,000 ML IV ONE (14:11)
[2020-02-09] MEDS ORDERED: SODIUM CHLORIDE 0.65% NA SOLN 45 ML (OCEAN) PRN ×2 (20:59→22:29)
[2020-02-09] MEDS ORDERED: ACETAMINOPHEN 325 MG TAB PO PRN ×2 (20:59→22:29)
[2020-02-09] MEDS ORDERED: MAGNESIUM HYDROXIDE SUSP 30 ML UDC PO PRN ×2 (20:59→22:29)
[2020-02-09] MEDS ORDERED: BISMUTH SUBSALICYLATE PER ML OMNICELL CHARGE PO PRN ×2 (20:59→22:29)
[2020-02-09] MEDS ORDERED: ALUMINUM/MAGNESIUM SUSP 30 ML UDC PO PRN ×2 (20:59→22:29)
[2020-02-09] MEDS ORDERED: MELATONIN 3 MG TAB PO PRN (21:08)
[2020-02-09] MEDS ORDERED: PERPHENAZINE 2 MG TABLET PO SCH (21:15)
[2020-02-09] MEDS: TEMAZEPAM 7.5 MG CAPSULE PO SCH (21:46)
[2020-02-09] MEDS: diazePAM 5 MG TABLET PO SCH (21:46)
[2020-02-09] MEDS ORDERED: cloNIDine HCL 0.1 MG TAB PO SCH (22:00)
[2020-02-09] MEDS ORDERED: ARIPIprazole SOLN 10 MG/10 ML UDP PO SCH (22:00)
--- NOTE | 2020-02-10 10:29 | History & Physical ---
Date of Service February 10, 2020 Impression / Recommendations Impression 74-year-old male with schizophrenia who lives at the [facility], is on a 305 IOC, discharged from our unit 1 month ago following another signifcicant 3S admission with approx a month between that and the next admission (2admssions ago was s/p a serious suicide attempt by acetaminophen overdose) who presents with disorganized behaviors leading ER assessment and nonverballness and disengagement in ER assessment. Pt's behaviors included urinating in public in CRR and smmoking in CR (not allowed and not following redirection) and putting out the cig in a dangerous manner when finally did put it out. Did not engage in nursing assessment last ight and refused meds last night and earlier this morning. Some engagement in this admission assessment by sql report writer but selectively and in guarded manner and without insight to his presentation or rationale for admission. His psychotic symptoms have been refractory to treatment and very challenging to treat, and have required extensive and frequent admissions lately and has had numerous medication trials, with poor response/severe side effects to multiple antipsychotics. It appears that pt has been taking his meds prescribed at discharge only "occasionally' and that his outpt psychiatrist attempted to revert pt back to prior medications rx'd prior to last admission but staff has determined that this other medications not obtained from the pharmacy. Pt is interested in resuming medications as rx'd at discharge of last admission. HE is smoking 1 ppd lately per pt. denied alcohol or other substance usage Med compliance concerns likely adding to his recent worsening. We will need to coordinate care with his outpatient treatment team. 306 conversion hearing is scheduled for tomorrow morning ( 02/10 morning). For now, we will resume the medication regimen he was on at the time of discharge, as he was doing relatively well on that combination of meds. Inpatient treatment is medically necessary due to the severity of symptoms and risk for suicide if discharged. Negative for covid test results given potential exposure of COVID at his CRR. Urine negative for UTI. (1) Schizophrenia: 02/09 -resume medication regimen he was on at the time of discharge 1 month ago, along with adding prn benztropine and prn colace for potential s/e to his medications -Pt indicating willing to sign ROIs for his treatment providers and placement -individual therapy and as appropriate group therapy -coordinate with outpt providers and attempt to help coordinate treatment plan given tendency of changes of medication plan at f/u psychiatric appt ocuring after discharge in pt compared to discharge medications. Schizophrenia type: unspecified Qualified Code(s): F20.9 - Schizophrenia, unspecified (2) Memory changes: 02/09 -patient was seen by neurology in a recent prior admission and had a scheduled neurology outpt appt on 02/02/2020 that he reported not attending out of not feeling it would be beneficial for him. Neurology has also sought neuropsych testing and this has not occurred as of yet and likely not scheduled, will attempt to coordinate this further during this admission. Pt is noted to have multiple risk factors for A recent brain MRI was notable for mild progressive nonspecific foci of increased T2 signal within the white matter, likely on a small vessel basis, but negative for acute intracranial findings, masses, subacute or acute infarction. He is scheduled to follow-up with Dr. Caal on 02/02/2020. (3) Tobacco use disorder: 02/09 - pt expressed desire for nicotine patch 21mg a day but then refused when nurses offered it to him, pt refused nicotinate gum offered, pt expressed some interested in quitting smoking but is too psychotic to engage in smoking cessation at this time and will perform once more appropriate to do so Inventory Assets Strengths: intelligence, improved consideration of medication complaince then in the past Needs: improved medication compliance, improved coordination of care of inpt and outpt providers, addressing housing situation given behavioral concerns at current CRR Risk Factors Assessment Male: Yes : Yes Do You Have Access To A Gun?: No Health Problems: Yes Mental Health Diagnoses: Yes Substance Use Disorders: Yes Previous Attempt: Yes Previous Attempt; Highly Lethal: Yes Previous Psychiatric Hospitalization: Yes Hopelessness: No Smoker: Yes Protective Factors Assessment : No Employed: No Stable Relationships: No Good Rapport with Provider: No Psychiatric History Identifying Data TREY ROBERTO is a 74-year-old M who currently lives in in a CRR in [place], has a history of schizophrenia, and was admitted on 02/09/20 21:03 on a 302 involuntary commitment with an active 305 involuntary outpatient commitment for inability to take care of self and disorganized behaviors . Chief Complaint "I don't know why they admitted me". History of Present Illness Trey is well-known to staff and to me from multiple past episodes of care, He was most recently on of [facility] for days after and discharged //2020. During that hospitalization, he had multiple medication adjustments and medication trials, and was ultimately discharged on Trey reports taking medications "occasionally" And it appears pt has been taking a combination of medications that were prescribed at above hospital discharge with other medcications rx'd by his primary psychiatrist. Dr. Alves. Pt reports not attending his scheduled neurology appt that was scheduled for a week prior to this current admission. He was brought to [facility] Er on 02/09/2020 due to and was admitted to [facility] after attempting a bed search for geripsych units. on this admission assessment he denied SI or HI. He endorsed viewing staff at his CRR negatively given their policies and expressed staff not liking him. He answered no comment to questions regarding hallucinations. He denied having paranoid thinking or related concerns. He viewed any impairments of his memory as mild and tied to just due to aging. He was unaware of the month, date of month or day of week but did correctly state the time of day and year. He was oriented to person and place. He endorsed feeling comfortable here on the unit and endorsed willingness to sign JEFFREY to obtain information. He endorsed openness to resume the medications rx'd at discharge from his most recent admission. Pt endorsed not sleeping for about 6 nights prior to his admission, although pt tends to report this and is not considered a reliable historian on questions of time line nor on his sleep in general. He reports sleeping decently last night. At time of admission into this morning, he refused to participate in nursing admission assessment, and refused to take medications. He was also non cooperative in the ER assessments and was reported to not answer questions nor have spontaneous speech while in the ER. UTI was ruled out pt strongly with time line questions and appears to combine recent admissions and recent history with some memory impairment along with disorganized thinking and also the number and length of recent admission likely contributing factors Past Psychiatric History Previous Psych History: Current Psychiatric Diagnosis: Schizophrenia Outpatient Services: Outpatient Services: Psychiatrist - Dr. Alves - [facility], last reported appt 01/21/2020 [facility] - Colin Guadalupe Refuses therapy Previous Psych Admissions: [facility]: 09/2016, 02/2019 - 05/2019; 06/2019, 08/2019, 11/06/2019, [facility] [place]: 05/2019 [facility] - 04/2018 Several other inpatient psychiatric admissions - [facility], [place], and a state hospitalization at [facility] (2014) Current Psychiatric Diagnosis: Schizophrenia Do You Have Access To A Gun?: No Describe Attempts in the Past: prior overdoses in 1999 and and in 09/2019 Tylenol overdose Past Medication Trials: 1. Zyprexa 2. Risperdal 3. Abilify 4. Haldol - dystonia 5. Amitriptyline 6. Imipramine 7. Ambien 8. Thorazine - NMS 9. Temazepam 10. Cymbalta - GI symptoms 11. Navane 12. Loxitane 13. Invega 14. Latuda 15. Ativan 16. Xanax 17. Seroquel 18. Clozapine 19. Alprazolam 20. Mirtazapine -discontinued during most recent hospitalization due to inefficacy 21. Clonidine -discontinued during most recent hospitalization due to fatigue, fall risk, and gait unsteadiness 22. Ziprasidone -discontinued during most recent hospitalization due to inefficacy 23. Clozapine -trial during most recent hospitalization, discontinued due to acute worsening of mental status with confusion, shuffling gait, cogwheel rigid ity, and restlessness 24. Benztropine -for EPS 25. Trihexyphenidyl -for EPS 26. trilafon 27. Valium Allergies Allergy/AdvReac Type Severity Reaction Status Date / Time No Known Allergies Allergy Verified 12/22/19 14:52 Home Medications Home Medications Medication Instructions Recorded Confirmed Type melatonin 10 mg PO HS PRN #0 tab 11/19/19 02/09/20 Rx aripiprazole [Abilify] 10 mg PO HS #30 tab 01/13/20 02/09/20 Rx diazepam 5 mg PO BID #20 tab 01/13/20 02/09/20 Rx temazepam 7.5 mg PO HS 02/09/20 02/09/20 History benztropine 0.5 mg PO BID PRN 02/10/20 02/10/20 History docusate sodium 100 mg PO BID 02/10/20 02/10/20 History Family History Family History of: Refuses To Discuss Family Mental Health History Comment: From prior records - Family History of: Psychosis/ThoughtDisorder and Suicide Completion Family Mental Health History Comment: Cousin completed suicide; family hx of schizophrenia-Mother Alcohol History Hx of Alcohol Use Over the Past 12 Months: No Smoking Use Have You Smoked or Used Tobacco Products in the Last 30 Days: Yes tobacco type: cigarettes Smoking Status: Current every day smoker Smoking packs per day: 1 Substance History Hx of Prescription Med Misuse Over the Past 12 Months: No Hx of Over the Counter Med Misuse Over the Past 12 Months: No Hx of Inhalent Misuse Over the Past 12 Months: No Hx of Organic Substance Use Over the Past 12 Months: No Hx of Illegal Substances/Street Drug Use Over Past 12 Months: No Problems as a Result of Past Substance Use: None Identified prior remote h/o benzo use disorder Personal History Living Arrangements: [facility] Born In: [place], but moved frequently Beliefs That Will Affect Care: None Hx Legal Problems: No Hx Traumatic Life Events: No Patient History Medical History Benzodiazepine abuse Closed head injury Fall Hypertension Hypokalemia Leukocytosis (08/14/13) Rhabdomyolysis (07/21/13) Scalp laceration Schizophrenia (Chronic) Tobacco use disorder Surgical History No pertinent past surgical history Social History Preferred Language: Telugu Communication Ability: Effective Toter Required: No Beliefs That Will Affect Care: None Current Living Situation: Alone Feels Safe at Home: Yes Smoking Status: Current every day smoker Tobacco Type: cigarettes ; Hx Alcohol Use: No Hx Substance Use: No Review of Systems Review of Systems: All systems reviewed & are unremarkable except as noted in HPI & below Physical Exam Mental Examination: Physical exam completed in the ER on 02/09/[address] Caal was reviewed and considered accpetabel and sufficient for this admission Psychiatric: Orientation: alert, oriented to person and oriented to place; + not oriented to time and + uncooperative oriented to year and time of day but not month date of month or day of the week Eye Contact: + fair eye contact Motor Behavior: no psychomotor agitation, no psychomotor retardation, n EPS, n akathisia and n tremor Speech: normal rate/rhythm/volume of speech but minimize spontaneous speech Affect: + blunted affect Mood: no depressed mood, no anxious mood, no irritable mood and no angry mood Thought Process: thought association intact Thought Content: + paranoid denied paranoid thinking but seeming paranoid in his presentation and engagement no overt delusional thinking came forth in assessment Suicidal Thoughts: denies suicidal thoughts Homicidal Thoughts: denies homicidal thoughts Cognition: + recent memory not intact and + attention not intact pt appears with some gross cognitive concerns mikey compared to his prior baseline congitive abilities and intellect from years ago Insight: + severely impaired insight Judgement: + severely impaired judgement Vital Signs (Past 24 Hours): Last Vital Signs Temp 36.8 C 02/09/20 21:18 Pulse 95 H 02/09/20 21:18 Resp 17 02/09/20 21:18 BP 133/67 02/09/20 21:18 Pulse Ox 97 02/09/20 21:18 Results & Data ([facility]) Laboratory Results Laboratory Results - last 24 hr 02/09/20 02/09/20 02/09/20 12:47 12:47 12:47 WBC 11.58 H RBC 5.35 Hgb 17.0 Hct 49.6 MCV 92.7 MCH 31.8 MCHC 34.3 RDW Std Deviation 43.8 RDW Coeff of Namita 13.0 Plt Count 394 MPV 9.5 Immature Gran % (Auto) 0.2 Neut % (Auto) 62.6 Lymph % (Auto) 21.9 [place] % (Auto) 7.5 Eos % (Auto) 7.5 Baso % (Auto) 0.3 Neut # (Auto) 7.24 H Lymph # (Auto) 2.54 [place] # (Auto) 0.87 H Eos # (Auto) 0.87 H Baso # (Auto) 0.04 Immature Gran # (Auto) 0.02 Sodium 137 Potassium 3.2 L Chloride 104 Carbon Dioxide 19 L Anion Gap 14.0 H BUN 29 H Creatinine 0.91 Est Cr Clr Drug Dosing Not Reportable Est GFR ( Amer) 96.6 Est GFR (Non-Af Amer) 83.3 BUN/Creatinine Ratio 32.2 H Glucose 87 Calcium 9.3 Total Bilirubin 0.8 AST 19 ALT 34 Alkaline Phosphatase 136 H Total Protein 8.7 H Albumin 4.0 Globulin 4.7 H Albumin/Globulin Ratio 0.9 TSH 0.452 Urine Color Urine Appearance Urine pH Ur Specific Dr[place]gs Urine Protein Urine Glucose (UA) Urine Ketones Urine Blood Urine Nitrite Urine Bilirubin Urine Urobilinogen Ur Leukocyte Esterase Urine WBC (Auto) Urine RBC (Auto) U Hyaline Cast (Auto) U Epithel Cells (Auto) Urine Bacteria (Auto) Salicylates 3.1 Urine Opiates Screen Ur Methadone, Qual Acetaminophen < 2 L Urine Barbiturates Ur Phencyclidine (PCP) U Amphetamin/Meth Scrn MDMA (Ecstasy) Screen U OH-Alprazolam Confrm U Benzodiazepines Scrn 7-Amino Clonazepam Ur Nordiazepam Confirm U OH-ethylflurazepam U Lorazepam Cnf GC/MS U Oxazepam Confm GC/MS Ur Temazepam Confirm U OH-Triazolam Confirm U OH-Midazolam Confirm Ur Cocaine Metabolite U Marijuana (THC) Screen Drug Screen Comment Ethyl Alcohol mg/dL COVID-19 PCR SARS-CoV-2 RNA (RT-PCR) 02/09/20 02/09/20 02/09/20 12:47 13:15 13:15 WBC RBC Hgb Hct MCV MCH MCHC RDW Std Deviation RDW Coeff of Namita Plt Count MPV Immature Gran % (Auto) Neut % (Auto) Lymph % (Auto) [place] % (Auto) Eos % (Auto) Baso % (Auto) Neut # (Auto) Lymph # (Auto) [place] # (Auto) Eos # (Auto) Baso # (Auto) Immature Gran # (Auto) Sodium Potassium Chloride Carbon Dioxide Anion Gap BUN Creatinine Est Cr Clr Drug Dosing Est GFR ( Amer) Est GFR (Non-Af Amer) BUN/Creatinine Ratio Glucose Calcium Total Bilirubin AST ALT Alkaline Phosphatase Total Protein Albumin Globulin Albumin/Globulin Ratio TSH Urine Color Dark Yellow Urine Appearance Clear Urine pH 5.5 Ur Specific Dr[place]gs 1.028 Urine Protein Trace H Urine Glucose (UA) Negative Urine Ketones 4+ H Urine Blood Trace H Urine Nitrite Negative Urine Bilirubin Negative Urine Urobilinogen Negative Ur Leukocyte Esterase Negative Urine WBC (Auto) 1-5 Urine RBC (Auto) 0-4 U Hyaline Cast (Auto) 1-5 U Epithel Cells (Auto) 10-20 H Urine Bacteria (Auto) Negative Salicylates Urine Opiates Screen Neg Ur Methadone, Qual Neg Acetaminophen Urine Barbiturates Neg Ur Phencyclidine (PCP) Neg U Amphetamin/Meth Scrn Neg MDMA (Ecstasy) Screen Neg U OH-Alprazolam Confrm U Benzodiazepines Scrn Pos H 7-Amino Clonazepam Ur Nordiazepam Confirm U OH-ethylflurazepam U Lorazepam Cnf GC/MS U Oxazepam Confm GC/MS Ur Temazepam Confirm U OH-Triazolam Confirm U OH-Midazolam Confirm Ur Cocaine Metabolite Neg U Marijuana (THC) Screen Neg Drug Screen Comment Ethyl Alcohol mg/dL < 3.0 COVID-19 PCR SARS-CoV-2 RNA (RT-PCR) 02/09/20 02/09/20 02/09/20 13:15 18:05 18:05 WBC RBC Hgb Hct MCV MCH MCHC RDW Std Deviation RDW Coeff of Namita Plt Count MPV Immature Gran % (Auto) Neut % (Auto) Lymph % (Auto) [place] % (Auto) Eos % (Auto) Baso % (Auto) Neut # (Auto) Lymph # (Auto) [place] # (Auto) Eos # (Auto) Baso # (Auto) Immature Gran # (Auto) Sodium Potassium Chloride Carbon Dioxide Anion Gap BUN Creatinine Est Cr Clr Drug Dosing Est GFR ( Amer) Est GFR (Non-Af Amer) BUN/Creatinine Ratio Glucose Calcium Total Bilirubin AST ALT Alkaline Phosphatase Total Protein Albumin Globulin Albumin/Globulin Ratio TSH Urine Color Urine Appearance Urine pH Ur Specific Dr[place] Urine Protein Urine Glucose (UA) Urine Ketones Urine Blood Urine Nitrite Urine Bilirubin Urine Urobilinogen Ur Leukocyte Esterase Urine WBC (Auto) Urine RBC (Auto) U Hyaline Cast (Auto) U Epithel Cells (Auto) Urine Bacteria (Auto) Salicylates Urine Opiates Screen Ur Methadone, Qual Acetaminophen Urine Barbiturates Ur Phencyclidine (PCP) U Amphetamin/Meth Scrn MDMA (Ecstasy) Screen U OH-Alprazolam Confrm Pending U Benzodiazepines Scrn 7-Amino Clonazepam Pending Ur Nordiazepam Confirm Pending U OH-ethylflurazepam Pending U Lorazepam Cnf GC/MS Pending U Oxazepam Confm GC/MS Pending Ur Temazepam Confirm Pending U OH-Triazolam Confirm Pending U OH-Midazolam Confirm Pending Ur Cocaine Metabolite U Marijuana (THC) Screen Drug Screen Comment Pending Ethyl Alcohol mg/dL COVID-19 PCR NEGATIVE SARS-CoV-2 RNA (RT-PCR) Cancelled Current Inpatient Medications Current Inpatient Medications: Current Inpatient Medications Acetaminophen (Tylenol) 650 mg PO Q4H PRN PRN Reason: Headache or Minor Fever Stop: 03/10/20 20:58 Al Hydrox/Mg Hydrox/Simethicone (Maalox) 30 ml PO Q4H PRN PRN Reason: GI Upset Stop: 03/10/20 20:58 Aripiprazole (Abilify) 10 mg PO HS MAG Stop: 03/10/20 21:59 Last Admin: 02/09/20 21:46 Dose: Not Given Documented by: Bismuth Subsalicylate (Kaopectate) 15 ml PO PRN PRN PRN Reason: Loose Stool Stop: 03/10/20 20:58 Clonidine HCl (Catapres) 0.1 mg PO HS MAG Stop: 03/10/20 21:59 Last Admin: 02/09/20 21:46 Dose: Not Given Documented by: Diazepam (Valium) 5 mg PO BID MAG Stop: 03/10/20 21:14 Last Admin: 02/09/20 21:46 Dose: Not Given Documented by: Hydroxyzine HCl (Vistaril) 50 mg PO HSZ PRN PRN Reason: Insomnia Stop: 03/10/20 20:58 Hydroxyzine HCl (Vistaril) 25 mg PO Q4H PRN PRN Reason: Anxiety Stop: 03/10/20 20:58 Magnesium Hydroxide (Milk Of Magnesia) 30 ml PO DAILY PRN PRN Reason: Constipation Stop: 03/10/20 20:58 Melatonin (Melatonin) 10 mg PO HS PRN PRN Reason: Sleep Stop: 03/10/20 21:07 Perphenazine (Trilafon) 8 mg PO BID MAG Stop: 03/10/20 21:14 Last Admin: 02/09/20 21:46 Dose: Not Given Documented by: Sodium Chloride (Boyd Nasal) 1 - 2 sprays NA PRN PRN PRN Reason: Nasal Dryness/Congestion Stop: 03/10/20 20:58 Temazepam (Restoril) 7.5 mg PO HSZ MAG Stop: 03/10/20 21:59 Last Admin: 02/09/20 21:46 Dose: Not Given Documented by:
[2020-02-10] MEDS: diazePAM 5 MG TABLET PO SCH ×2 (10:31→21:00)
[2020-02-10] MEDS ORDERED: BENZTROPINE MESYLATE 0.5 MG TAB PO PRN (10:46)
[2020-02-10] MEDS ORDERED: DOCUSATE SODIUM 100 MG CAP PO PRN (10:51)
[2020-02-10] MEDS: NICOTINE 21 MG/24 HR TDSY TD SCH (13:35)
--- NOTE | 2020-02-10 14:21 | Psychiatric Progress Note ---
Date of Service February 10, 2020 Impression / Recommendations Risk Factors Assessment Male: Yes : Yes Do You Have Access To A Gun?: No Health Problems: Yes Mental Health Diagnoses: Yes Substance Use Disorders: Yes Previous Attempt: Yes Previous Psychiatric Hospitalization: Yes Hopelessness: No Smoker: Yes Protective Factors Assessment : No Responsible for Young Children: No Employed: No Stable Relationships: No Good Rapport with Provider: No Interval History Chief Complaint "[]". Review of Systems Sleep Information Total Hours of Sleep: 6.5 Sleep Comments: pt on q-15 minute checks Meal Information Percent Meal Consumed - Breakfast: 100 Subjective Subjective Patient was seen & assessed and interval progress reviewed with [treatment team] [nursing and social work] Physical Exam Vital Signs (Past 24 Hours) Last Vital Signs Temp 36.8 C 02/09/20 21:18 Pulse 95 H 02/09/20 21:18 Resp 17 02/09/20 21:18 BP 133/67 02/09/20 21:18 Pulse Ox 97 02/09/20 21:18 Results & Data ([facility]) Laboratory Results Laboratory Results - last 24 hr 02/09/20 02/09/20 18:05 18:05 COVID-19 PCR NEGATIVE SARS-CoV-2 RNA (RT-PCR) Cancelled Current Inpatient Medications Current Inpatient Medications: Current Inpatient Medications Acetaminophen (Tylenol) 650 mg PO Q4H PRN PRN Reason: Headache or Minor Fever Stop: 03/10/20 20:58 Al Hydrox/Mg Hydrox/Simethicone (Maalox) 30 ml PO Q4H PRN PRN Reason: GI Upset Stop: 03/10/20 20:58 Aripiprazole (Abilify) 10 mg PO HS MAG Stop: 03/10/20 21:59 Last Admin: 02/09/20 21:46 Dose: Not Given Documented by: Benztropine Mesylate (Cogentin) 0.5 mg PO BID PRN PRN Reason: akasthesia Stop: 03/11/20 10:45 Bismuth Subsalicylate (Kaopectate) 15 ml PO PRN PRN PRN Reason: Loose Stool Stop: 03/10/20 20:58 Diazepam (Valium) 5 mg PO BID MAG Stop: 03/10/20 21:14 Last Admin: 02/10/20 10:31 Dose: 5 mg Documented by: Docusate Sodium (Colace) 100 mg PO BID PRN PRN Reason: Constipation Stop: 03/11/20 20:59 Hydroxyzine HCl (Vistaril) 50 mg PO HSZ PRN PRN Reason: Insomnia Stop: 03/10/20 20:58 Hydroxyzine HCl (Vistaril) 25 mg PO Q4H PRN PRN Reason: Anxiety Stop: 03/10/20 20:58 Magnesium Hydroxide (Milk Of Magnesia) 30 ml PO DAILY PRN PRN Reason: Constipation Stop: 03/10/20 20:58 Melatonin (Melatonin) 10 mg PO HS PRN PRN Reason: Sleep Stop: 03/10/20 21:07 Miscellaneous (Remove Nicoderm Patch) 1 ea N/A DAILY@[id number] [facility] Stop: 03/12/20 08:58 Nicotine (Nicoderm Cq) 21 mg TD QAM [facility] Stop: 03/11/20 12:59 Last Admin: 02/10/20 13:35 Dose: Not Given Documented by: Sodium Chloride (Convent Nasal) 1 - 2 sprays NA PRN PRN PRN Reason: Nasal Dryness/Congestion Stop: 03/10/20 20:58 Temazepam (Restoril) 7.5 mg PO HSZ MAG Stop: 03/10/20 21:59 Last Admin: 02/09/20 21:46 Dose: Not Given Documented by: Post Discharge Appointments Primary Care Physician Name Of Family Doctor: Dr. Jeff Lopez
[2020-02-10] MEDS: TEMAZEPAM 7.5 MG CAPSULE PO SCH (21:00)
[2020-02-10] MEDS: ARIPiprazole 10 MG TAB PO SCH (21:27)
[2020-02-11] MEDS: diazePAM 5 MG TABLET PO SCH ×2 (08:17→21:17)
[2020-02-11] MEDS: NICOTINE 21 MG/24 HR TDSY TD SCH (08:18)
--- NOTE | 2020-02-11 14:08 | Psychiatric Progress Note ---
Date of Service February 11, 2020 Impression / Recommendations (1) Schizophrenia: 02/09 -resume medication regimen he was on at the time of discharge 1 month ago, along with adding prn benztropine and prn colace for potential s/e to his medications -Pt indicating willing to sign ROIs for his treatment providers and placement -individual therapy and as appropriate group therapy -coordinate with outpt providers and attempt to help coordinate tr eatment plan given tendency of changes of medication plan at f/u psychiatric appt ocuring after discharge in pt compared to discharge medications. 02/10 - continue medication unchanged for now with aim to converto FARAH form of abilify if pt will consent, consideration of risks and benefits of valium dosage to remain as rx'd over time given pt's past usage of those medications and compelxity of this case mikey memory concerns and therapeutic allaince aspects that have a complex push and pull of the benefits and risks of this class of medications in complex ways 305 to 306 invol inpt conversion granted this morning (02/10) [facility] team meeting with the various people invovled in pt's care (outpt and inpt) to address various concerns including medication compliance, behavioral issues of pt, tensions between pt and CRR staff, struggles to avoid decompensation in first weeks after discharge from the hospital, and apparent lack of continuance of inpt discharge medication plan after transition followup outpt psychiatric appointments recently. (2) Memory changes: 02/09 -patient was seen by neurology in a recent prior admission and had a scheduled neurology outpt appt on 02/02/2020 that he reported not attending out of not feeling it would be beneficial for him. Neurology has also sought neuropsych testing and this has not occurred as of yet and likely not scheduled, will attempt to coordinate this further during this admission. Pt is noted to have multiple risk factors for A recent brain MRI was notable for mild progressive nonspecific foci of increased T2 signal within the white matter, likely on a small vessel basis, but negative for acute intracranial findings, masses, subacute or acute infarction. He is scheduled to follow-up with Dr. Caal on 02/02/2020. (3) Tobacco use disorder: 02/09 - pt expressed desire for nicotine patch 21mg a day but then refused when nurses offered it to him, pt refused nicotinate gum offered, pt expressed some interested in quitting smoking but is too psychotic to engage in smoking cessation at this time and will perform once more appropriate to do so 02/10 been refusing nicotine patch to date, will continue to have offer at this time Risk Factors Assessment Male: Yes : Yes Do You Have Access To A Gun?: No Health Problems: Yes Mental Health Diagnoses: Yes Substance Use Disorders: Yes Previous Attempt: Yes Previous Attempt; Highly Lethal: Yes Previous Psychiatric Hospitalization: Yes Hopelessness: No Smoker: Yes Protective Factors Assessment : No Employed: No Stable Relationships: No Good Rapport with Provider: No Interval History Chief Complaint "O.K". Review of Systems Sleep Information Total Hours of Sleep: 6.5 Sleep Comments: pt on q-15 minute checks Meal Information Percent Meal Consumed - Breakfast: 100 Percent Meal Consumed - Lunch: 100 Percent Meal Consumed - Dinner: 100 Subjective Subjective Patient was seen & assessed and interval progress reviewed with treatment team. Pt was superficially cooperative during start of assessment (although was requesting pt remove his mask and let this go as adjusto writer operator addressed rationale for mask and increased volume of voice to help with any hearing of adjusto writer operator concerns) but denied any symptoms. When adjusto writer operator inquired about possible AH pt became silent and avoided eye contact and remained shut down for rest of the assessment. Pie I[employer] attempted to re-engage with adjusto writer operator in a few different manners with minimum to no succuss and pt indicated wanting adjusto writer operator to leave the room, feeling that adjusto writer operator was "too aggressive" Pt was reminded of his 305 to 306 conversion hearing and pt declined to attend it at time of the hearing. The invol inpt conversion of his commitment was granted during the hearing this morning. He reported sleeping well last night. He took his medications without issue. Treatment planning meeting with his outpt team including his CRR and jaskaran rhoades is scheduled for tomorrow. Will attempt to coordinate care and address issues and concerns of medication compliance, behavioral issues of pt, tensions between pt and CRR staff, struggles to avoid decompensation in first weeks after discharge from the hospital, and apparent lack of continuance of inpt discharge medication plan after transition followup outpt psychiatric appointments recently. Physical Exam Psychiatric Orientation: alert, oriented to person and oriented to place; + not oriented to time and + uncooperative Eye Contact: + poor eye contact Motor Behavior: no psychomotor agitation, no psychomotor retardation, n EPS, n akathisia and n tremor Speech: normal rate/rhythm/volume of speech Affect: + blunted affect Mood: no depressed mood, no anxious mood, no irritable mood and no angry mood Thought Process: thought association intact Thought Content: + paranoid thought b locking Suicidal Thoughts: denies suicidal thoughts Homicidal Thoughts: denies homicidal thoughts probable AH with pt not willign to repond to the answer and thought blocking occurring for while after adjusto writer operator inquired Cognition: + recent memory not intact and + attention not intact Insight: + severely impaired insight Judgement: + severely impaired judgement Vital Signs (Past 24 Hours) Last Vital Signs Temp 36.7 C 02/11/20 06:27 Pulse 73 02/11/20 06:28 Resp 18 02/11/20 06:27 BP 108/69 02/11/20 06:28 Pulse Ox 97 02/09/20 21:18 Results & Data ([facility] [[email or web address] Current Inpatient Medications Current Inpatient Medications: Current Inpatient Medications Acetaminophen (Tylenol) 650 mg PO Q4H PRN PRN Reason: Headache or Minor Fever Stop: 03/10/20 20:58 Al Hydrox/Mg Hydrox/Simethicone (Maalox) 30 ml PO Q4H PRN PRN Reason: GI Upset Stop: 03/10/20 20:58 Aripiprazole (Abilify) 10 mg PO HS MAG Stop: 03/11/20 21:59 Last Admin: 02/10/20 21:27 Dose: 10 mg Documented by: Benztropine Mesylate (Cogentin) 0.5 mg PO BID PRN PRN Reason: akasthesia Stop: 03/11/20 10:45 Bismuth Subsalicylate (Kaopectate) 15 ml PO PRN PRN PRN Reason: Loose Stool Stop: 03/10/20 20:58 Diazepam (Valium) 5 mg PO BID MAG Stop: 03/10/20 21:14 Last Admin: 02/11/20 08:17 Dose: 5 mg Documented by: Docusate Sodium (Colace) 100 mg PO BID PRN PRN Reason: Constipation Stop: 03/11/20 20:59 Hydroxyzine HCl (Vistaril) 50 mg PO HSZ PRN PRN Reason: Insomnia Stop: 03/10/20 20:58 Hydroxyzine HCl (Vistaril) 25 mg PO Q4H PRN PRN Reason: Anxiety Stop: 03/10/20 20:58 Magnesium Hydroxide (Milk Of Magnesia) 30 ml PO DAILY PRN PRN Reason: Constipation Stop: 03/10/20 20:58 Melatonin (Melatonin) 10 mg PO HS PRN PRN Reason: Sleep Stop: 03/10/20 21:07 Miscellaneous (Remove Nicoderm Patch) 1 ea N/A DAILY@0859 [facility] Stop: 03/12/20 08:58 Last Admin: 02/11/20 08:18 Dose: Not Given Documented by: Nicotine (Nicoderm Cq) 21 mg TD QAM [facility] Stop: 03/11/20 12:59 Last Admin: 02/11/20 08:18 Dose: Not Given Documented by: Sodium Chloride ([place] Nasal) 1 - 2 sprays NA PRN PRN PRN Reason: Nasal Dryness/Congestion Stop: 03/10/20 20:58 Temazepam (Restoril) 7.5 mg PO HSZ MAG Stop: 03/10/20 21:59 Last Admin: 02/10/20 21:00 Dose: 7.5 mg Documented by: Post Discharge Appointments Primary Care Physician Name Of Family Doctor: Dr. Jeff Lopez (1) Schizophrenia Schizophrenia type: unspecified Qualified Code(s): F20.9 - Schizophrenia, unspecified
[2020-02-11] MEDS: ARIPiprazole 10 MG TAB PO SCH (21:17)
[2020-02-11] MEDS: TEMAZEPAM 7.5 MG CAPSULE PO SCH (21:17)
[2020-02-12] MEDS: diazePAM 5 MG TABLET PO SCH ×3 (07:41→21:03)
[2020-02-12] MEDS: NICOTINE 21 MG/24 HR TDSY TD SCH (07:44)
[2020-02-12 08:09] LABS: 7-Aminoclonaz, Confirm NEGATIVE ng/mL (<25); Hydro-Alp Ur, GC/MS NEGATIVE ng/mL (<25); Hydroxyethylflurazepam, Conf NEGATIVE ng/mL (<50); Hydroxymidazolam Ur, GC/MS NEGATIVE ng/mL (<50); Hydroxytriazolam NEGATIVE ng/mL (<50); Lorazepam, Ur GC/MS NEGATIVE ng/mL (<50); Nordiazepam, Confirm 61 ng/mL (<50); Oxazepam Ur, GC/MS 513 ng/mL (<50); Temazepam, Confirm 104 ng/mL (<50)
--- NOTE | 2020-02-12 10:03 | Psychiatric Progress Note ---
Date of Service February 12, 2020 Impression / Recommendations (1) Schizophrenia: 02/09 -resume medication regimen he was on at the time of discharge 1 month ago, along with adding prn benztropine and prn colace for potential s/e to his medications -Pt indicating willing to sign ROIs for his treatment providers and placement -individual therapy and as appropriate group therapy -coordinate with outpt providers and attempt to help coordinate tr eatment plan given tendency of changes of medication plan at f/u psychiatric appt ocuring after discharge in pt compared to discharge medications. 02/10 - continue medication unchanged for now with aim to converto FARAH form of abilify if pt will consent, consideration of risks and benefits of valium dosage to remain as rx'd over time given pt's past usage of those medications and compelxity of this case mikey memory concerns and therapeutic allaince aspects that have a complex push and pull of the benefits and risks of this class of medications in complex ways 305 to 306 invol inpt conversion granted this morning (02/10) [facility] team meeting with the various people invovled in pt's care (outpt and inpt) to address various concerns including medication compliance, behavioral issues of pt, tensions between pt and CRR staff, struggles to avoid decompensation in first weeks after discharge from the hospital, and apparent lack of continuance of inpt discharge medication plan after transition followup outpt psychiatric appointments recently. 02/11 - Continue current medication regimen, consider ongoing discussion regarding potential for conversion to an FARAH - Pt has been compliant with medications, but has not showered and is still limited in his attendance to ADLs - Meeting today with multi-disciplinary treatment team to discuss discharge and future treatment recommendations. Representation from [facility], [facility], and [facility] were present. (2) Memory changes: 02/09 -patient was seen by neurology in a recent prior admission and had a scheduled neurology outpt appt on 02/02/2020 that he reported not attending out of not feeling it would be beneficial for him. Neurology has also sought neuropsych testing and this has not occurred as of yet and likely not scheduled, will attempt to coordinate this further during this admission. Pt is noted to have multiple risk factors for A recent brain MRI was notable for mild progressive nonspecific foci of increased T2 signal within the white matter, likely on a small vessel basis, but negative for acute intracranial findings, masses, subacute or acute infarction. He is scheduled to follow-up with Dr. Caal on 02/02/2020. (3) Tobacco use disorder: 02/09 - pt expressed desire for nicotine patch 21mg a day but then refused when nurses offered it to him, pt refused nicotinate gum offered, pt expressed some interested in quitting smoking but is too psychotic to engage in smoking cessation at this time and will perform once more appropriate to do so 02/10 been refusing nicotine patch to date, will continue to have offer at this time Risk Factors Assessment Male: Yes : Yes Do You Have Access To A Gun?: No Health Problems: Yes Mental Health Diagnoses: Yes Substance Use Disorders: Yes Previous Attempt: Yes Previous Attempt; Highly Lethal: Yes Previous Psychiatric Hospitalization: Yes Hopelessness: No Smoker: Yes Protective Factors Assessment : No Employed: No Stable Relationships: No Good Rapport with Provider: No Interval History Identifying Information SCOTT ROBERTO is a 74-year-old M who currently lives in in a CRR in [place], has a history of schizophrenia, and was admitted on 02/09/20 21:03 on a 302 involuntary commitment with an active 305 involuntary outpatient commitment for inability to take care of self and disorganized behaviors. Chief Complaint "Ok." Review of Systems Notes Constitutional: denied Cardiovascular: denied Respiratory: denied Gastrointestinal: denied Neurological: denied Psychiatric: denies symptoms other than stated above Total of at least 10 systems reviewed, pertinent positives as above and in HPI. Sleep Information Total Hours of Sleep: 7 Sleep Comments: pt on q-15 minute checks Meal Information Percent Meal Consumed - Breakfast: 100 Percent Meal Consumed - Lunch: 100 Percent Meal Consumed - Dinner: 100 Subjective Subjective Patient was seen & assessed and interval progress reviewed with treatment team. Staff report the patient has been largely isolative, but is eating and taking medications. He has not been showering or shaving as is his usual morning routine. Collaborative treatment team meeting to be held this morning with the critical access hospital, CRR representatives, and [facility]. Pt was seen today to assess progress since admission. Pt was asked how he was doing, and responded with a simple "ok." He was asked how breakfast was and said "not very good." We discussed his dietary preferences as he generally reports preference for vegetarian options, but has ordered meat on our unit in the past. During this conversation, patient abruptly stated "I don't feel like talking right now." Pt did verbalize he would be open to talking again later this afternoon. He denied any acute needs at this time. Numerous additional attempts were made to speak with the patient during the day. He tolerated brief superficial conversation, but declined to speak when asked specifically about discussing how he is doing, stating "I'd rather not" or "not right now." Pt was encouraged to reach out to staff or this provider if he desires to speak in more detail today. He was informed there were no recommended changes to his medication regimen and was inform about who the weekend rounding psychiatrist would be. Pt was polite throughout conversation, but only offered brief responses. He consistently denied any needs. Physical Exam Psychiatric Orientation: alert, oriented to person and oriented to place pt did not tolerate lengthy conversation, so unable to determine if oriented to time Apperance: appropriately dressed (but wearing same shirt and jeans for several days), + disheveled and appeared stated age; + inappropriately groomed Eye Contact: + fair eye contact Motor Behavior: no abnormal motor movements (observed while laying in bed) Speech: normal rate/rhythm/volume of speech (only brief responses to questions) Affect: + flat affect Mood: no depressed mood ("Ok") Thought Process: + concrete thought process Thought Content: due to limited participation in conversation, it is difficult to assess the presence of delusions, paranoia, or other concerns Cognition: attention grossly intact Estimated Intelligence: consistent with education level Insight: + impaired insight Judgement: + impaired judgement Vital Signs (Past 24 Hours) Last Vital Signs Temp 36.8 C 02/11/20 20:00 Pulse 73 02/11/20 06:28 Resp 18 02/11/20 06:27 BP 108/69 02/11/20 06:28 Pulse Ox 97 02/09/20 21:18 Results & Data ([facility]) Laboratory Results Laboratory Results - last 24 hr 02/09/20 13:15 U OH-Alprazolam Confrm NEGATIVE 7-Amino Clonazepam NEGATIVE Ur Nordiazepam Confirm 61 H U OH-ethylflurazepam NEGATIVE U Lorazepam Cnf GC/MS NEGATIVE U Oxazepam Confm GC/MS 513 H Ur Temazepam Confirm 104 H U OH-Triazolam Confirm NEGATIVE U OH-Midazolam Confirm NEGATIVE Drug Screen Comment SEE NOTE Current Inpatient Medications Current Inpatient Medications: Current Inpatient Medications Acetaminophen (Tylenol) 650 mg PO Q4H PRN PRN Reason: Headache or Minor Fever Stop: 03/10/20 20:58 Al Hydrox/Mg Hydrox/Simethicone (Maalox) 30 ml PO Q4H PRN PRN Reason: GI Upset Stop: 03/10/20 20:58 Aripiprazole (Abilify) 10 mg PO HS MAG Stop: 03/11/20 21:59 Last Admin: 02/11/20 21:17 Dose: 10 mg Documented by: Benztropine Mesylate (Cogentin) 0.5 mg PO BID PRN PRN Reason: akasthesia Stop: 03/11/20 10:45 Bismuth Subsalicylate (Kaopectate) 15 ml PO PRN PRN PRN Reason: Loose Stool Stop: 03/10/20 20:58 Diazepam (Valium) 5 mg PO BID MAG Stop: 03/10/20 21:14 Last Admin: 02/12/20 07:41 Dose: 5 mg Documented by: Docusate Sodium (Colace) 100 mg PO BID PRN PRN Reason: Constipation Stop: 03/11/20 20:59 Hydroxyzine HCl (Vistaril) 50 mg PO HSZ PRN PRN Reason: Insomnia Stop: 03/10/20 20:58 Hydroxyzine HCl (Vistaril) 25 mg PO Q4H PRN PRN Reason: Anxiety Stop: 03/10/20 20:58 Magnesium Hydroxide (Milk Of Magnesia) 30 ml PO DAILY PRN PRN Reason: Constipation Stop: 03/10/20 20:58 Melatonin (Melatonin) 10 mg PO HS PRN PRN Reason: Sleep Stop: 03/10/20 21:07 Miscellaneous (Remove Nicoderm Patch) 1 ea N/A DAILY@0859 [facility] Stop: 03/12/20 08:58 Last Admin: 02/12/20 07:44 Dose: Not Given Documented by: Nicotine (Nicoderm Cq) 21 mg TD QAM [facility] Stop: 03/11/20 12:59 Last Admin: 02/12/20 07:44 Dose: Not Given Documented by: Sodium Chloride ([place] Nasal) 1 - 2 sprays NA PRN PRN PRN Reason: Nasal Dryness/Congestion Stop: 03/10/20 20:58 Temazepam (Restoril) 7.5 mg PO HSZ MAG Stop: 03/10/20 21:59 Last Admin: 02/11/20 21:17 Dose: 7.5 mg Documented by: Post Discharge Appointments Primary Care Physician Name Of Family Doctor: Dr. Jeff Lopez (1) Schizophrenia Schizophrenia type: unspecified Qualified Code(s): F20.9 - Schizophrenia, unspecified
[2020-02-12] MEDS: ARIPiprazole 10 MG TAB PO SCH ×2 (20:56→21:03)
[2020-02-12] MEDS: TEMAZEPAM 7.5 MG CAPSULE PO SCH (20:57)
[2020-02-13] MEDS: diazePAM 5 MG TABLET PO SCH ×2 (08:41→23:16)
[2020-02-13] MEDS: NICOTINE 21 MG/24 HR TDSY TD SCH (08:45)
--- NOTE | 2020-02-13 15:10 | Psychiatric Progress Note ---
Date of Service February 13, 2020 Impression / Recommendations (1) Schizophrenia: 02/09 -resume medication regimen he was on at the time of discharge 1 month ago, along with adding prn benztropine and prn colace for potential s/e to his medications -Pt indicating willing to sign ROIs for his treatment providers and placement -individual therapy and as appropriate group therapy -coordinate with outpt providers and attempt to help coordinate tr eatment plan given tendency of changes of medication plan at f/u psychiatric appt ocuring after discharge in pt compared to discharge medications. 02/10 - continue medication unchanged for now with aim to converto FARAH form of abilify if pt will consent, consideration of risks and benefits of valium dosage to remain as rx'd over time given pt's past usage of those medications and compelxity of this case mikey memory concerns and therapeutic allaince aspects that have a complex push and pull of the benefits and risks of this class of medications in complex ways 305 to 306 invol inpt conversion granted this morning (02/10) [facility] team meeting with the various people invovled in pt's care (outpt and inpt) to address various concerns including medication compliance, behavioral issues of pt, tensions between pt and [facility] staff, struggles to avoid decompensation in first weeks after discharge from the hospital, and apparent lack of continuance of inpt discharge medication plan after transition followup outpt psychiatric appointments recently. 02/11 - Continue current medication regimen, consider ongoing discussion regarding potential for conversion to an FARAH - Pt has been compliant with medications, but has not showered and is still limited in his attendance to ADLs - Meeting today with multi-disciplinary treatment team to discuss discharge and future treatment recommendations. Representation from [facility], [facility], and [facility] were present. 02/12 -Continue medication regimen unchanged. Encouraging consistent compliance. -Another meeting being scheduled for Saturday for multidisciplinary treatment team (2) Memory changes: 02/09 -patient was seen by neurology in a recent prior admission and had a scheduled neurology outpt appt on 02/02/2020 that he reported not attending out of not feeling it would be beneficial for him. Neurology has also sought neuropsych testing and this has not occurred as of yet and likely not scheduled, will attempt to coordinate this further during this admission. Pt is noted to have multiple risk factors for A recent brain MRI was notable for mild progressive nonspecific foci of increased T2 signal within the white matter, likely on a small vessel basis, but negative for acute intracranial findings, masses, subacute or acute infarction. He is scheduled to follow-up with Dr. Caal on 02/02/2020. (3) Tobacco use disorder: 02/09 - pt expressed desire for nicotine patch 21mg a day but then refused when nurses offered it to him, pt refused nicotinate gum offered, pt expressed some interested in quitting smoking but is too psychotic to engage in smoking cessation at this time and will perform once more appropriate to do so 02/10 been refusing nicotine patch to date, will continue to have offer at this time Risk Factors Assessment Male: Yes : Yes Do You Have Access To A Gun?: No Health Problems: Yes Mental Health Diagnoses: Yes Substance Use Disorders: Yes Previous Attempt: Yes Previous Attempt; Highly Lethal: Yes Previous Psychiatric Hospitalization: Yes Hopelessness: No Smoker: Yes Protective Factors Assessment : No Employed: No Stable Relationships: No Good Rapport with Provider: No Interval History Identifying Information SCOTT ROBERTO is a 74-year-old M who currently lives in in a [facility] in [place], has a history of schizophrenia, and was admitted on 02/09/20 21:03 on a 302 involuntary commitment with an active 305 involuntary outpatient commitment for inability to take care of self and disorganized behaviors. Chief Complaint " I feel good, or may be I just do not care?". Review of Systems Sleep Information Total Hours of Sleep: 6.25 Sleep Comments: pt on q-15 minute checks Meal Information Percent Meal Consumed - Breakfast: 100 Percent Meal Consumed - Lunch: 100 Percent Meal Consumed - Dinner: 100 Subjective Subjective Patient was seen & assessed and interval progress reviewed with treatment team. Patient on a 306 commitment. Has refused some oral medications yesterday however he reports he was compliant with Valium this morning which he attributes a relaxed feeling to at time of interview. When queried about reason for rehospitalization he indicates that someone at the [facility] "made false statements" however he denies any specific complaints or concerns or areas of need today. He appears rather indifferent which is atypical for him. Physical Exam Vital Signs (Past 24 Hours) Last Vital Signs Temp 36.4 C L 02/13/20 06:47 Pulse 76 02/13/20 06:49 Resp 18 02/13/20 06:47 BP 119/77 02/13/20 06:49 Pulse Ox 97 02/09/20 21:18 Results & Data ([facility]) Current Inpatient Medications Current Inpatient Medications: Current Inpatient Medications Acetaminophen (Tylenol) 650 mg PO Q4H PRN PRN Reason: Headache or Minor Fever Stop: 03/10/20 20:58 Al Hydrox/Mg Hydrox/Simethicone (Maalox) 30 ml PO Q4H PRN PRN Reason: GI Upset Stop: 03/10/20 20:58 Aripiprazole (Abilify) 10 mg PO HS MAG Stop: 03/11/20 21:59 Last Admin: 02/12/20 21:03 Dose: Not Given Documented by: Benztropine Mesylate (Cogentin) 0.5 mg PO BID PRN PRN Reason: akasthesia Stop: 03/11/20 10:45 Bismuth Subsalicylate (Kaopectate) 15 ml PO PRN PRN PRN Reason: Loose Stool Stop: 03/10/20 20:58 Diazepam (Valium) 5 mg PO BID [facility] Stop: 03/10/20 21:14 Last Admin: 02/13/20 08:41 Dose: 5 mg Documented by: Docusate Sodium (Colace) 100 mg PO BID PRN PRN Reason: Constipation Stop: 03/11/20 20:59 Hydroxyzine HCl (Vistaril) 50 mg PO HSZ PRN PRN Reason: Insomnia Stop: 03/10/20 20:58 Hydroxyzine HCl (Vistaril) 25 mg PO Q4H PRN PRN Reason: Anxiety Stop: 03/10/20 20:58 Magnesium Hydroxide (Milk Of Magnesia) 30 ml PO DAILY PRN PRN Reason: Constipation Stop: 03/10/20 20:58 Melatonin (Melatonin) 10 mg PO HS PRN PRN Reason: Sleep Stop: 03/10/20 21:07 Miscellaneous (Remove Nicoderm Patch) 1 ea N/A DAILY@0859 [facility] Stop: 03/12/20 08:58 Last Admin: 02/13/20 08:45 Dose: Not Given Documented by: Nicotine (Nicoderm Cq) 21 mg TD QAM [facility] Stop: 03/11/20 12:59 Last Admin: 02/13/20 08:45 Dose: Not Given Documented by: Sodium Chloride ([place] Nasal) 1 - 2 sprays NA PRN PRN PRN Reason: Nasal Dryness/Congestion Stop: 03/10/20 20:58 Temazepam (Restoril) 7.5 mg PO HSZ MAG Stop: 03/10/20 21:59 Last Admin: 02/12/20 20:57 Dose: 7.5 mg Documented by: Post Discharge Appointments Primary Care Physician Name Of Family Doctor: Dr. Jeff Lopez (1) Schizophrenia Schizophrenia type: unspecified Qualified Code(s): F20.9 - Schizophrenia, unspecified
[2020-02-13] MEDS: ARIPiprazole 10 MG TAB PO SCH (23:16)
[2020-02-13] MEDS: TEMAZEPAM 7.5 MG CAPSULE PO SCH (23:16)
[2020-02-14] MEDS: diazePAM 5 MG TABLET PO SCH ×2 (08:15→23:21)
[2020-02-14] MEDS: NICOTINE 21 MG/24 HR TDSY TD SCH (08:17)
--- NOTE | 2020-02-14 16:07 | Psychiatric Progress Note ---
Date of Service February 14, 2020 Impression / Recommendations (1) Schizophrenia: 02/09 -resume medication regimen he was on at the time of discharge 1 month ago, along with adding prn benztropine and prn colace for potential s/e to his medications -Pt indicating willing to sign ROIs for his treatment providers and placement -individual therapy and as appropriate group therapy -coordinate with outpt providers and attempt to help coordinate tr eatment plan given tendency of changes of medication plan at f/u psychiatric appt ocuring after discharge in pt compared to discharge medications. 02/10 - continue medication unchanged for now with aim to converto FARAH form of abilify if pt will consent, consideration of risks and benefits of valium dosage to remain as rx'd over time given pt's past usage of those medications and compelxity of this case mikey memory concerns and therapeutic allaince aspects that have a complex push and pull of the benefits and risks of this class of medications in complex ways 305 to 306 invol inpt conversion granted this morning (02/10) [facility] team meeting with the various people invovled in pt's care (outpt and inpt) to address various concerns including medication compliance, behavioral issues of pt, tensions between pt and [facility] staff, struggles to avoid decompensation in first weeks after discharge from the hospital, and apparent lack of continuance of inpt discharge medication plan after transition followup outpt psychiatric appointments recently. 02/11 - Continue current medication regimen, consider ongoing discussion regarding potential for conversion to an FARAH - Pt has been compliant with medications, but has not showered and is still limited in his attendance to ADLs - Meeting today with multi-disciplinary treatment team to discuss discharge and future treatment recommendations. Representation from [facility], [facility], and [facility] were present. 02/12 -Continue medication regimen unchanged. Encouraging consistent compliance. -Another meeting being scheduled for Saturday for multidisciplinary treatment team 02/13 -Continues to appear more apathetic this admission. -Multidisciplinary meeting planned for Saturday -Being planned for Saturday (2) Memory changes: 02/09 -patient was seen by neurology in a recent prior admission and had a scheduled neurology outpt appt on 02/02/2020 that he reported not attending out of not feeling it would be beneficial for him. Neurology has also sought neuropsych testing and this has not occurred as of yet and likely not scheduled, will attempt to coordinate this further during this admission. Pt is noted to have multiple risk factors for A recent brain MRI was notable for mild progressive nonspecific foci of increased T2 signal within the white matter, likely on a small vessel basis, but negative for acute intracranial findings, masses, subacute or acute infarction. He is scheduled to follow-up with Dr. Caal on 02/02/2020. (3) Tobacco use disorder: 02/09 - pt expressed desire for nicotine patch 21mg a day but then refused when nurses offered it to him, pt refused nicotinate gum offered, pt expressed some interested in quitting smoking but is too psychotic to engage in smoking cessation at this time and will perform once more appropriate to do so 02/10 been refusing nicotine patch to date, will continue to have offer at this time Risk Factors Assessment Male: Yes : Yes Do You Have Access To A Gun?: No Health Problems: Yes Mental Health Diagnoses: Yes Substance Use Disorders: Yes Previous Attempt: Yes Previous Attempt; Highly Lethal: Yes Previous Psychiatric Hospitalization: Yes Hopelessness: No Smoker: Yes Protective Factors Assessment : No Employed: No Stable Relationships: No Good Rapport with Provider: No Interval History Identifying Information SCOTT ROBERTO is a 74-year-old M who currently lives in in a [facility] in [place], has a history of schizophrenia, and was admitted on 02/09/20 21:03 on a 302 involuntary commitment with an active 305 involuntary outpatient commitment for inability to take care of self and disorganized behaviors. Chief Complaint "I'm fine". Review of Systems Sleep Information Total Hours of Sleep: 4.5 Sleep Comments: half of this amount occured on previous shift. Meal Information Percent Meal Consumed - Breakfast: 100 Percent Meal Consumed - Lunch: 100 Percent Meal Consumed - Dinner: 100 Subjective Subjective Patient was seen & assessed and interval progress reviewed with treatment team. No acute events overnight. Patient continues to deny subjective feelings of depression to staff. Staff report indicates continued change in daily routines, not asking to shower and more isolative in his room. He denies hallucinations on interview today. Denies feeling down and denies thoughts of self-harm. He expresses ambivalence about his medication. Perceives the Valium as helpful thi s morning. He cannot identify rationale for refusing Valium again last evening. Physical Exam Psychiatric Orientation: cooperative Apperance: + disheveled Eye Contact: + fair eye contact Motor Behavior: no abnormal motor movements Speech: normal rate/rhythm/volume of speech Affect: + blunted affect (calm. ) Mood: no depressed mood ("I'm fine") Thought Process: + concrete thought process Thought Content: no preoccupation Suicidal Thoughts: denies suicidal thoughts Hallucinations: no auditory hallucinations and no visual hallucinations Insight: + poor insight Judgement: + limited judgement Vital Signs (Past 24 Hours) Last Vital Signs Temp 36.7 C 02/14/20 06:24 Pulse 73 02/14/20 06:25 Resp 18 02/14/20 06:24 BP 113/62 02/14/20 06:25 Pulse Ox 97 02/09/20 21:18 Results & Data ([facility]) Current Inpatient Medications Current Inpatient Medications: Current Inpatient Medications Acetaminophen (Tylenol) 650 mg PO Q4H PRN PRN Reason: Headache or Minor Fever Stop: 03/10/20 20:58 Al Hydrox/Mg Hydrox/Simethicone (Maalox) 30 ml PO Q4H PRN PRN Reason: GI Upset Stop: 03/10/20 20:58 Aripiprazole (Abilify) 10 mg PO HS MAG Stop: 03/11/20 21:59 Last Admin: 02/13/20 23:16 Dose: Not Given Documented by: Benztropine Mesylate (Cogentin) 0.5 mg PO BID PRN PRN Reason: akasthesia Stop: 03/11/20 10:45 Bismuth Subsalicylate (Kaopectate) 15 ml PO PRN PRN PRN Reason: Loose Stool Stop: 03/10/20 20:58 Diazepam (Valium) 5 mg PO BID MAG Stop: 03/10/20 21:14 Last Admin: 02/14/20 08:15 Dose: 5 mg Documented by: Docusate Sodium (Colace) 100 mg PO BID PRN PRN Reason: Constipation Stop: 03/11/20 20:59 Hydroxyzine HCl (Vistaril) 50 mg PO HSZ PRN PRN Reason: Insomnia Stop: 03/10/20 20:58 Hydroxyzine HCl (Vistaril) 25 mg PO Q4H PRN PRN Reason: Anxiety Stop: 03/10/20 20:58 Magnesium Hydroxide (Milk Of Magnesia) 30 ml PO DAILY PRN PRN Reason: Constipation Stop: 03/10/20 20:58 Melatonin (Melatonin) 10 mg PO HS PRN PRN Reason: Sleep Stop: 03/10/20 21:07 Miscellaneous (Remove Nicoderm Patch) 1 ea N/A DAILY@0859 [facility] Stop: 03/12/20 08:58 Last Admin: 02/14/20 08:17 Dose: Not Given Documented by: Nicotine (Nicoderm Cq) 21 mg TD QAM [facility] Stop: 03/11/20 12:59 Last Admin: 02/14/20 08:17 Dose: Not Given Documented by: Sodium Chloride ([place] Nasal) 1 - 2 sprays NA PRN PRN PRN Reason: Nasal Dryness/Congestion Stop: 03/10/20 20:58 Temazepam (Restoril) 7.5 mg PO HSZ [facility] Stop: 03/10/20 21:59 Last Admin: 02/13/20 23:16 Dose: Not Given Documented by: Post Discharge Appointments Primary Care Physician Name Of Family Doctor: Dr. Jeff Lopez (1) Schizophrenia Schizophrenia type: unspecified Qualified Code(s): F20.9 - Schizophrenia, unspecified
[2020-02-14] MEDS: TEMAZEPAM 7.5 MG CAPSULE PO SCH (23:21)
[2020-02-14] MEDS: ARIPiprazole 10 MG TAB PO SCH (23:21)
--- NOTE | 2020-02-15 09:42 | Psychiatric Progress Note ---
Date of Service February 15, 2020 Impression / Recommendations (1) Schizophrenia: 02/09 -resume medication regimen he was on at the time of discharge 1 month ago, along with adding prn benztropine and prn colace for potential s/e to his medications -Pt indicating willing to sign ROIs for his treatment providers and placement -individual therapy and as appropriate group therapy -coordinate with outpt providers and attempt to help coordinate tr eatment plan given tendency of changes of medication plan at f/u psychiatric appt ocuring after discharge in pt compared to discharge medications. 02/10 - continue medication unchanged for now with aim to converto FARAH form of abilify if pt will consent, consideration of risks and benefits of valium dosage to remain as rx'd over time given pt's past usage of those medications and compelxity of this case mikey memory concerns and therapeutic allaince aspects that have a complex push and pull of the benefits and risks of this class of medications in complex ways 305 to 306 invol inpt conversion granted this morning (02/10) [facility] team meeting with the various people invovled in pt's care (outpt and inpt) to address various concerns including medication compliance, behavioral issues of pt, tensions between pt and CR[facility] staff, struggles to avoid decompensation in first weeks after discharge from the hospital, and apparent lack of continuance of inpt discharge medication plan after transition followup outpt psychiatric appointments recently. 02/11 - Continue current medication regimen, consider ongoing discussion regarding potential for conversion to an FARAH - Pt has been compliant with medications, but has not showered and is still limited in his attendance to ADLs - Meeting today with multi-disciplinary treatment team to discuss discharge and future treatment recommendations. Representation from [facility], [employer], and [facility] were present. 02/12 -Continue medication regimen unchanged. Encouraging consistent compliance. -Another meeting being scheduled for Saturday for multidisciplinary treatment team 02/13 -Continues to appear more apathetic this admission. -Multidisciplinary meeting planned for Saturday -Being planned for Wednesday 02/14 - Continue to encourage consistency with his current medication regimen - Aripiprazole adjusted to qAM dosing to encourage opportunity to accept the medication - re-evaluate willingness for FARAH administration when patient is appropriate for this conversation - Multidisciplinary meeting today (2) Memory changes: 02/09 -patient was seen by neurology in a recent prior admission and had a scheduled neurology outpt appt on 02/02/2020 that he reported not attending out of not feeling it would be beneficial for him. Neurology has also sought neuropsych testing and this has not occurred as of yet and likely not scheduled, will attempt to coordinate this further during this admission. Pt is noted to have multiple risk factors for A recent brain MRI was notable for mild progressive nonspecific foci of increased T2 signal within the white matter, likely on a small vessel basis, but negative for acute intracranial findings, masses, subacute or acute infarction. He is scheduled to follow-up with Dr. Caal on 02/02/2020. (3) Tobacco use disorder: 02/09 - pt expressed desire for nicotine patch 21mg a day but then refused when nurses offered it to him, pt refused nicotinate gum offered, pt expressed some interested in quitting smoking but is too psychotic to engage in smoking cessation at this time and will perform once more appropriate to do so 02/10 been refusing nicotine patch to date, will continue to have offer at this time Risk Factors Assessment Male: Yes : Yes Do You Have Access To A Gun?: No Health Problems: Yes Mental Health Diagnoses: Yes Substance Use Disorders: Yes Previous Attempt: Yes Previous Attempt; Highly Lethal: Yes Previous Psychiatric Hospitalization: Yes Hopelessness: No Smoker: Yes Protective Factors Assessment : No Employed: No Stable Relationships: No Good Rapport with Provider: No Interval History Identifying Information SCOTT ROBERTO is a 74-year-old M who currently lives in in a CRR in [place], has a history of schizophrenia, and was admitted on 02/09/20 21:03 on a 302 involuntary commitment with an active 305 involuntary outpatient commitment for inability to take care of self and disorganized behaviors. Chief Complaint "Ok. Pretty good." Review of Systems Notes Constitutional: denied Cardiovascular: denied Respiratory: denied Gastrointestinal: reported abdominal discomfort to staff, stating he thinks he is not getting enough food Neurological: denied Psychiatric: denies symptoms other than stated above Total of at least 10 systems reviewed, pertinent positives as above and in HPI. Sleep Information Total Hours of Sleep: 5.75 Sleep Comments: half of this amount occured on previous shift. Meal Information Percent Meal Consumed - Breakfast: 100 Percent Meal Consumed - Lunch: 100 Percent Meal Consumed - Dinner: 100 Subjective Subjective Patient was seen & assessed and interval progress reviewed with treatment team. Staff report the patient has continued to be isolative but superficially cooperative with staff. He has been inconsistent with medications, having refused his aripiprazole for the past 3 nights. Pt still has not showered or shaved, which varies from his usual rigid morning routine. Pt was seen today to assess progress since admission. Pt states he is "ok" and reports the weekend was "pretty good." We discussed that he is attending "some groups, it depends." He reports he has not been walking laps or overly active "because I like to just lay around." Pt then stated "I don't feel like talking anymore." He did at lease tolerate a brief discussion about his recent pattern of refusing medications. Pt claims that "Abilify is a rip-off, it's a placebo." Pt continues on this topic, stating "it's a [employer] rip-off, it's made in [place]. It does nothing. All antipsychotics are placebo." Pt was offered to take aripiprazole in the morning, and initially stated "I don't care." Upon further discussion, he states "but I'm not taking it this morning." Pt had reported to staff that he was having abdominal discomfort, but tells this provider "I think I'm just not getting enough food." He did request a cup of coffee, but denied other needs at this time. He did later tell staff "I'll take whatever medications you make me take." Aripiprazole was then adjusted to AM dosing. Physical Exam Psychiatric Orientation: alert and cooperative (superficially ) Apperance: appropriately dressed (wearing same clothes for several days) and + disheveled; + inappropriately groomed (has not showered for weeks) Eye Contact: + fair eye contact Motor Behavior: no abnormal motor movements (observed while laying in bed) Speech: normal rate/rhythm/volume of speech (brief responses to questions) Affect: + flat affect Mood: no depressed mood ("Okay") Thought Process: + concrete thought process Thought Content: + delusions (fixed delusions related to perceived efficacy of medications); no preoccupation Hallucinations: no auditory hallucinations and no visual hallucinations Cognition: attention grossly intact and language grossly intact Insight: + impaired insight Judgement: + impaired judgement Vital Signs (Past 24 Hours) Last Vital Signs Temp 36.7 C 02/14/20 06:24 Pulse 80 02/15/20 06:34 Resp 15 02/15/20 06:00 BP 117/73 02/15/20 06:34 Pulse Ox 97 02/09/20 21:18 Results & Data ([facility]) Current Inpatient Medications Current Inpatient Medications: Current Inpatient Medications Acetaminophen (Tylenol) 650 mg PO Q4H PRN PRN Reason: Headache or Minor Fever Stop: 03/10/20 20:58 Al Hydrox/Mg Hydrox/Simethicone (Maalox) 30 ml PO Q4H PRN PRN Reason: GI Upset Stop: 03/10/20 20:58 Aripiprazole (Abilify) 10 mg PO HS MAG Stop: 03/11/20 21:59 Last Admin: 02/14/20 23:21 Dose: Not Given Documented by: Benztropine Mesylate (Cogentin) 0.5 mg PO BID PRN PRN Reason: akasthesia Stop: 03/11/20 10:45 Bismuth Subsalicylate (Kaopectate) 15 ml PO PRN PRN PRN Reason: Loose Stool Stop: 03/10/20 20:58 Diazepam (Valium) 5 mg PO BID [facility] Stop: 03/10/20 21:14 Last Admin: 02/14/20 23:21 Dose: Not Given Documented by: Docusate Sodium (Colace) 100 mg PO BID PRN PRN Reason: Constipation Stop: 03/11/20 20:59 Hydroxyzine HCl (Vistaril) 50 mg PO HSZ PRN PRN Reason: Insomnia Stop: 03/10/20 20:58 Hydroxyzine HCl (Vistaril) 25 mg PO Q4H PRN PRN Reason: Anxiety Stop: 03/10/20 20:58 Magnesium Hydroxide (Milk Of Magnesia) 30 ml PO DAILY PRN PRN Reason: Constipation Stop: 03/10/20 20:58 Melatonin (Melatonin) 10 mg PO HS PRN PRN Reason: Sleep Stop: 03/10/20 21:07 Miscellaneous (Remove Nicoderm Patch) 1 ea N/A DAILY@0859 [facility] Stop: 03/12/20 08:58 Last Admin: 02/14/20 08:17 Dose: Not Given Documented by: Nicotine (Nicoderm Cq) 21 mg TD QAM [facility] Stop: 03/11/20 12:59 Last Admin: 02/14/20 08:17 Dose: Not Given Documented by: Sodium Chloride ([place] Nasal) 1 - 2 sprays NA PRN PRN PRN Reason: Nasal Dryness/Congestion Stop: 03/10/20 20:58 Temazepam (Restoril) 7.5 mg PO HSZ MAG Stop: 03/10/20 21:59 Last Admin: 02/14/20 23:21 Dose: Not Given Documented by: Post Discharge Appointments Primary Care Physician Name Of Family Doctor: Dr. Jeff Lopez (1) Schizophrenia Schizophrenia type: unspecified Qualified Code(s): F20.9 - Schizophrenia, unspecified
[2020-02-15] MEDS: diazePAM 5 MG TABLET PO SCH ×2 (10:21→21:28)
[2020-02-15] MEDS: ARIPiprazole 10 MG TAB PO SCH (10:21)
[2020-02-15] MEDS: NICOTINE 21 MG/24 HR TDSY TD SCH (10:31)
[2020-02-15] MEDS: TEMAZEPAM 7.5 MG CAPSULE PO SCH (21:29)
[2020-02-16] MEDS: diazePAM 5 MG TABLET PO SCH ×2 (08:15→20:47)
[2020-02-16] MEDS: ARIPiprazole 10 MG TAB PO SCH (08:15)
[2020-02-16] MEDS: NICOTINE 21 MG/24 HR TDSY TD SCH (08:19)
--- NOTE | 2020-02-16 11:13 | Psychiatric Progress Note ---
Date of Service February 16, 2020 Impression / Recommendations (1) Schizophrenia: 02/09 -resume medication regimen he was on at the time of discharge 1 month ago, along with adding prn benztropine and prn colace for potential s/e to his medications -Pt indicating willing to sign ROIs for his treatment providers and placement -individual therapy and as appropriate group therapy -coordinate with outpt providers and attempt to help coordinate tr eatment plan given tendency of changes of medication plan at f/u psychiatric appt ocuring after discharge in pt compared to discharge medications. 02/10 - continue medication unchanged for now with aim to converto FARAH form of abilify if pt will consent, consideration of risks and benefits of valium dosage to remain as rx'd over time given pt's past usage of those medications and compelxity of this case mikey memory concerns and therapeutic allaince aspects that have a complex push and pull of the benefits and risks of this class of medications in complex ways 305 to 306 invol inpt conversion granted this morning (02/10) [facility] team meeting with the various people invovled in pt's care (outpt and inpt) to address various concerns including medication compliance, behavioral issues of pt, tensions between pt and CRR staff, struggles to avoid decompensation in first weeks after discharge from the hospital, and apparent lack of continuance of inpt discharge medication plan after transition followup outpt psychiatric appointments recently. 02/11 - Continue current medication regimen, consider ongoing discussion regarding potential for conversion to an FARAH - Pt has been compliant with medications, but has not showered and is still limited in his attendance to ADLs - Meeting today with multi-disciplinary treatment team to discuss discharge and future treatment recommendations. Representation from [facility], [facility], and [employer] were present. 02/12 -Continue medication regimen unchanged. Encouraging consistent compliance. -Another meeting being scheduled for Saturday for multidisciplinary treatment team 02/13 -Continues to appear more apathetic this admission. -Multidisciplinary meeting planned for Saturday -Being planned for Wednesday 02/14 - Continue to encourage consistency with his current medication regimen - Aripiprazole adjusted to qAM dosing to encourage opportunity to accept the medication - re-evaluate willingness for FARAH administration when patient is appropriate for this conversation - Multidisciplinary meeting today 02/15 - Continue current medication regimen - patient has been more consistent with medication regimen the past 2 days - Continue to assess willingness for an FARAH when patient becomes more agreeable - Pt is permitted to return to the CRR on discharge, which is his expressed desire as well. Plan is for future transition to a personal usp within (2) Memory changes: 02/09 -patient was seen by neurology in a recent prior admission and had a scheduled neurology outpt appt on 02/02/2020 that he reported not attending out of not feeling it would be beneficial for him. Neurology has also sought neuropsych testing and this has not occurred as of yet and likely not scheduled, will attempt to coordinate this further during this admission. Pt is noted to have multiple risk factors for A recent brain MRI was notable for mild progressive nonspecific foci of increased T2 signal within the white matter, likely on a small vessel basis, but negative for acute intracranial findings, masses, subacute or acute infarction. He is scheduled to follow-up with Dr. Caal on 02/02/2020. (3) Tobacco use disorder: 02/09 - pt expressed desire for nicotine patch 21mg a day but then refused when nurses offered it to him, pt refused nicotinate gum offered, pt expressed some interested in quitting smoking but is too psychotic to engage in smoking cessation at this time and will perform once more appropriate to do so 02/10 been refusing nicotine patch to date, will continue to have offer at this time Risk Factors Assessment Male: Yes : Yes Do You Have Access To A Gun?: No Health Problems: Yes Mental Health Diagnoses: Yes Substance Use Disorders: Yes Previous Attempt: Yes Previous Attempt; Highly Lethal: Yes Previous Psychiatric Hospitalization: Yes Hopelessness: No Smoker: Yes Protective Factors Assessment : No Employed: No Stable Relationships: No Good Rapport with Provider: No Interval History Identifying Information SCOTT ROBERTO is a 74-year-old M who currently lives in in a CRR in [place], has a history of schizophrenia, and was admitted on 02/09/20 21:03 on a 302 involuntary commitment with an active 305 involuntary outpatient commitment for inability to take care of self and disorganized behaviors. Chief Complaint "Ok." Review of Systems Notes Constitutional: denied Cardiovascular: denied Respiratory: denied Gastrointestinal: denied Neurological: denied Psychiatric: denies symptoms other than stated above Total of at least 10 systems reviewed, pertinent positives as above and in HPI. Sleep Information Total Hours of Sleep: 6.75 Sleep Comments: pt on q-15 minute checks Meal Information Percent Meal Consumed - Breakfast: 100 Percent Meal Consumed - Lunch: 100 Percent Meal Consumed - Dinner: 100 Subjective Subjective Patient was seen & assessed and interval progress reviewed with nursing and social work. Staff report the patient has continued to be somewhat isolative, attending a few groups but mostly laying on his bed in his room. MNPR is maintained as patient still has yet to shower or attend to self-care routine in weeks. Multidisciplinary meeting was held yesterday to coordinate outpatient care, repeat meeting scheduled for 02/17. Pt has been more consistent with medications over the past few days. Pt is reportedly permitted to return to the CRR on discharge, though eventual plan is still to explore personal usp placement. Pt was seen today to assess progress since admission. Pt states he is "ok" today. He was asked his thoughts about his estimated length of stay being 10-20 days, stating "that's ok. It sounds good." Pt denies SI, stating he has not been suicidal in an estimated "2-3 months I think." He does endorse history of "hearing voices and noises", but these have been less frequent and not distressing. Pt spontaneously inquires "have you ever looked into Abilify? All antipsychotic drugs are made in [place], they're all sugar pills." In an effort to assess patient's lack of willingness to shower/shave, we discussed concerns expressed by [facility] staff on admission. When patient was informed of reports he had not been eating, drinking, or showering in days the patient stated "that's a lie. They lied." He acknowledges that his routine has changed with regard to showering and shaving first thing in the morning, but when asked why this may be he states "I don't know, it's a good question." Pt denies any additional needs or concerns at this time. Physical Exam Psychiatric Orientation: alert and cooperative (superficially ) Apperance: appropriately dressed (casually, in jeans and long-sleeve shirt - though has not changed in days), + disheveled (unshaven, unshowered, though not malodorous) and appeared stated age Eye Contact: good eye contact Motor Behavior: no abnormal motor movements (observed while laying on bed) Speech: normal rate/rhythm/volume of speech (brief responses to questions) Affect: + flat affect; + mood not congruent with affect (pt appears more flat/depressed than he acknowledges ) Mood: no depressed mood ("I'm fine") Thought Process: goal directed thought process and + concrete thought process Thought Content: + preoccupation and + delusions; no hopelessness Suicidal Thoughts: denies suicidal thoughts, denies suicidal plan and denies suicidal intent Homicidal Thoughts: denies homicidal thoughts Hallucinations: + auditory hallucinations (admits to occasional auditory hallucinations of voices, but not distressing); no visual hallucinations Cognition: attention grossly intact and language grossly intact Estimated Intelligence: consistent with education level Insight: + impaired insight Judgement: + poor judgement Vital Signs (Past 24 Hours) Last Vital Signs Temp 36.8 C 02/16/20 06:42 Pulse 80 02/16/20 06:42 Resp 18 02/16/20 06:42 BP 117/71 02/16/20 06:42 Pulse Ox 97 02/09/20 21:18 Results & Data ([facility]) Current Inpatient Medications Current Inpatient Medications: Current Inpatient Medications Acetaminophen (Tylenol) 650 mg PO Q4H PRN PRN Reason: Headache or Minor Fever Stop: 03/10/20 20:58 Al Hydrox/Mg Hydrox/Simethicone (Maalox) 30 ml PO Q4H PRN PRN Reason: GI Upset Stop: 03/10/20 20:58 Aripiprazole (Abilify) 10 mg PO QAM [facility] Stop: 03/16/20 10:29 Last Admin: 02/16/20 08:15 Dose: 10 mg Documented by: Benztropine Mesylate (Cogentin) 0.5 mg PO BID PRN PRN Reason: akasthesia Stop: 03/11/20 10:45 Bismuth Subsalicylate (Kaopectate) 15 ml PO PRN PRN PRN Reason: Loose Stool Stop: 03/10/20 20:58 Diazepam (Valium) 5 mg PO BID [facility] Stop: 03/10/20 21:14 Last Admin: 02/16/20 08:15 Dose: 5 mg Documented by: Docusate Sodium (Colace) 100 mg PO BID PRN PRN Reason: Constipation Stop: 03/11/20 20:59 Hydroxyzine HCl (Vistaril) 50 mg PO HSZ PRN PRN Reason: Insomnia Stop: 03/10/20 20:58 Hydroxyzine HCl (Vistaril) 25 mg PO Q4H PRN PRN Reason: Anxiety Stop: 03/10/20 20:58 Magnesium Hydroxide (Milk Of Magnesia) 30 ml PO DAILY PRN PRN Reason: Constipation Stop: 03/10/20 20:58 Melatonin (Melatonin) 10 mg PO HS PRN PRN Reason: Sleep Stop: 03/10/20 21:07 Miscellaneous (Remove Nicoderm Patch) 1 ea N/A DAILY@0859 [facility] Stop: 03/12/20 08:58 Last Admin: 02/16/20 08:20 Dose: Not Given Documented by: Nicotine (Nicoderm Cq) 21 mg TD QAM MAG Stop: 03/11/20 12:59 Last Admin: 02/16/20 08:19 Dose: Not Given Documented by: Sodium Chloride ([place] Nasal) 1 - 2 sprays NA PRN PRN PRN Reason: Nasal Dryness/Congestion Stop: 03/10/20 20:58 Temazepam (Restoril) 7.5 mg PO HSZ MAG Stop: 03/10/20 21:59 Last Admin: 02/15/20 21:29 Dose: Not Given Documented by: Mental Health & Subst Abuse Tx Cloth Shrinking Machine Operator Helper Name of Cloth Shrinking Machine Operator Helper: Shruti Mcbride Phone Number for Cloth Shrinking Machine Operator Helper: [phone] Case Management Appointment Comment: Will come see you Post Discharge Appointments Primary Care Physician Name Of Family Doctor: [facility] - Dr. Jeff Lopez Primary Care Provider Appointment Comment: [address], [address], [place] [address] Contact Information Discharge Discharge Address: [address] [place] [address] (1) Schizophrenia Schizophrenia type: unspecified Qualified Code(s): F20.9 - Schizophrenia, unspecified
[2020-02-16] MEDS: TEMAZEPAM 7.5 MG CAPSULE PO SCH (20:48)
[2020-02-17] MEDS: diazePAM 5 MG TABLET PO SCH ×2 (07:53→20:49)
[2020-02-17] MEDS: ARIPiprazole 10 MG TAB PO SCH (07:53)
[2020-02-17] MEDS: NICOTINE 21 MG/24 HR TDSY TD SCH (07:57)
--- NOTE | 2020-02-17 09:38 | Psychiatric Progress Note ---
Date of Service February 17, 2020 Impression / Recommendations (1) Schizophrenia: 02/09 -resume medication regimen he was on at the time of discharge 1 month ago, along with adding prn benztropine and prn colace for potential s/e to his medications -Pt indicating willing to sign ROIs for his treatment providers and placement -individual therapy and as appropriate group therapy -coordinate with outpt providers and attempt to help coordinate treatment plan given tendency of changes of medication plan at f/u psychiatric appt ocuring after discharge in pt compared to discharge medications. 02/10 - continue medication unchanged for now with aim to converto FARAH form of abilify if pt will consent, consideration of risks and benefits of valium dosage to remain as rx'd over time given pt's past usage of those medications and compelxity of this case mikey memory concerns and therapeutic allaince aspects that have a complex push and pull of the benefits and risks of this class of medications in complex ways 305 to 306 invol inpt conversion granted this morning (02/10) [facility] team meeting with the various people invovled in pt's care (outpt and inpt) to address various concerns including medication compliance, behavioral issues of pt, tensions between pt and [facility] staff, struggles to avoid decompensation in first weeks after discharge from the hospital, and apparent lack of continuance of inpt discharge medication plan after transition followup outpt psychiatric appointments recently. 02/11 - Continue current medication regimen, consider ongoing discussion regarding potential for conversion to an FARAH - Pt has been compliant with medications, but has not showered and is still limited in his attendance to ADLs - Meeting today with multi-disciplinary treatment team to discuss discharge and future treatment recommendations. Representation from [facility], [facility], and [facility] were present. 02/12 -Continue medication regimen unchanged. Encouraging consistent compliance. -Another meeting being scheduled for Saturday for multidisciplinary treatment team 02/13 -Continues to appear more apathetic this admission. -Multidisciplinary meeting planned for Saturday -Being planned for Wednesday 02/14 - Continue to encourage consistency with his current medication regimen - Aripiprazole adjusted to qAM dosing to encourage opportunity to accept the medication - re-evaluate willingness for FARAH administration when patient is appropriate for this conversation - Multidisciplinary meeting today 02/15 - Continue current medication regimen - patient has been more consistent with medication regimen the past 2 days - Continue to assess willingness for an FARAH when patient becomes more agreeable - Pt is permitted to return to the [facility] on discharge, which is his expressed desire as well. Plan is for future transition to a personal intermediate within 02/16 - Continue current medication regimen - explore willingness for FARAH - Multidisciplinary discharge planning meeting update for tomorrow - Pt continues to verbalize desire for discharge back to the [facility] - pt did indicate desire to shave and shower today, but has yet to take steps to complete these tasks (2) Memory changes: 02/09 -patient was seen by neurology in a recent prior admission and had a scheduled neurology outpt appt on 02/02/2020 that he reported not attending out of not feeling it would be beneficial for him. Neurology has also sought neuropsych testing and this has not occurred as of yet and likely not scheduled, will attempt to coordinate this further during this admission. Pt is noted to have multiple risk factors for A recent brain MRI was notable for mild progressive nonspecific foci of increased T2 signal within the white matter, l ikely on a small vessel basis, but negative for acute intracranial findings, masses, subacute or acute infarction. He is scheduled to follow-up with Dr. Caal on 02/02/2020. (3) Tobacco use disorder: 02/09 - pt expressed desire for nicotine patch 21mg a day but then refused when nurses offered it to him, pt refused nicotinate gum offered, pt expressed some interested in quitting smoking but is too psychotic to engage in smoking cessation at this time and will perform once more appropriate to do so 02/10 been refusing nicotine patch to date, will continue to have offer at this time Risk Factors Assessment Male: Yes : Yes Do You Have Access To A Gun?: No Health Problems: Yes Mental Health Diagnoses: Yes Substance Use Disorders: Yes Previous Attempt: Yes Previous Attempt; Highly Lethal: Yes Previous Psychiatric Hospitalization: Yes Hopelessness: No Smoker: Yes Protective Factors Assessment : No Employed: No Stable Relationships: No Good Rapport with Provider: No Interval History Identifying Information SCOTT ROBERTO is a 74-year-old M who currently lives in in a [facility] in [email or web address], has a history of schizophrenia, and was admitted on 02/09/20 21:03 on a 302 involuntary commitment with an active 305 involuntary outpatient commitment for inability to take care of self and disorganized behaviors. Chief Complaint "Ok." Review of Systems Notes Constitutional: denied Cardiovascular: denied Respiratory: denied Gastrointestinal: denied Neurological: denied Psychiatric: denies symptoms other than stated above Total of at least 10 systems reviewed, pertinent positives as above and in HPI. Sleep Information Total Hours of Sleep: 5.25 Sleep Comments: pt on q-15 minute checks Meal Information Percent Meal Consumed - Breakfast: 100 Percent Meal Consumed - Lunch: 100 Percent Meal Consumed - Dinner: 100 Subjective Subjective Patient was seen & assessed and interval progress reviewed with treatment team. Staff report the patient continues to be rather withdrawn, though pleasant with staff and peers. There is a interdisciplinary meeting tomorrow to discuss updates regarding discharge planning. Pt is maintained on private room due to current pandemic and very poor attention to hygiene, as he has not showered or changed clothes since his arrival. Pt was seen today to assess progress since admission. Pt states he is "ok" today. He reports attending morning community meeting yesterday, but did not attend any other groups - not providing an e xplanation for this other than "sometimes they're boring." Pt was asked if there were any topics he'd like to discuss with a counselor one-on-one and he stated "I'll think about it." Pt denies any issues here in the hospital and continues to verbalize desire to go back to the [facility]. Pt was asked if he observed any barriers to outpatient treatment that may have led to his hospitalization. He states "eating there is very difficult. They said they serve vegetarian, but they don't." Pt was informed the [facility] staff had not seen him eat, drink, sleep, or shower in several days before his arrival. Pt maintains "that's all lies, they made that up." This provider did verify that since his arrival here he has been eating, drinking, and sleeping - but that he has not showered or shaved since his arrival. Pt did verbalize desire to shave today, stating about his phillips "this is miserable." Pt was also encouraged to shower as well, in order to demonstrate improvement that would be suggestive of readiness for discharge. He states he would like to do this later, but has also been telling staff this for several days and has yet to shower. Pt did express desire to attend at least part of the interdisciplinary meeting tomorrow. He denied other needs or concerns today. Physical Exam Psychiatric Orientation: alert and + guarded (superficially cooperative ) Apperance: appropriately dressed (though has not changed since admission), + disheveled (hair is unkempt, unshaven) and appeared stated age Eye Contact: good eye contact Motor Behavior: no abnormal motor movements (observed while laying on his bed) Speech: normal rate/rhythm/volume of speech (brief responses to questions, monotone) Affect: + flat affect Mood: no depressed mood ("Ok") Thought Process: goal directed thought process and + concrete thought process Thought Content: no delusions (not fixated on any delusional beliefs today) Suicidal Thoughts: denies suicidal thoughts Homicidal Thoughts: denies homicidal thoughts Hallucinations: no auditory hallucinations and no visual hallucinations Cognition: attention grossly intact and language grossly intact Estimated Intelligence: consistent with education level Insight: + impaired insight Judgement: + impaired judgement Vital Signs (Past 24 Hours) Last Vital Signs Temp 37.0 C 02/17/20 06:28 Pulse 78 02/17/20 06:28 Resp 16 02/17/20 06:28 BP 130/82 02/17/20 06:28 Pulse Ox 97 02/09/20 21:18 Results & Data ([facility]) Current Inpatient Medications Current Inpatient Medications: Current Inpatient Medications Acetaminophen (Tylenol) 650 mg PO Q4H PRN PRN Reason: Headache or Minor Fever Stop: 03/10/20 20:58 Al Hydrox/Mg Hydrox/Simethicone (Maalox) 30 ml PO Q4H PRN PRN Reason: GI Upset Stop: 03/10/20 20:58 Aripiprazole (Abilify) 10 mg PO QAM [facility] Stop: 03/16/20 10:29 Last Admin: 02/17/20 07:53 Dose: 10 mg Documented by: Benztropine Mesylate (Cogentin) 0.5 mg PO BID PRN PRN Reason: akasthesia Stop: 03/11/20 10:45 Bismuth Subsalicylate (Kaopectate) 15 ml PO PRN PRN PRN Reason: Loose Stool Stop: 03/10/20 20:58 Diazepam (Valium) 5 mg PO BID [facility] Stop: 03/10/20 21:14 Last Admin: 02/17/20 07:53 Dose: 5 mg Documented by: Docusate Sodium (Colace) 100 mg PO BID PRN PRN Reason: Constipation Stop: 03/11/20 20:59 Hydroxyzine HCl (Vistaril) 50 mg PO HSZ PRN PRN Reason: Insomnia Stop: 03/10/20 20:58 Hydroxyzine HCl (Vistaril) 25 mg PO Q4H PRN PRN Reason: Anxiety Stop: 03/10/20 20:58 Magnesium Hydroxide (Milk Of Magnesia) 30 ml PO DAILY PRN PRN Reason: Constipation Stop: 03/10/20 20:58 Melatonin (Melatonin) 10 mg PO HS PRN PRN Reason: Sleep Stop: 03/10/20 21:07 Miscellaneous (Remove Nicoderm Patch) 1 ea N/A DAILY@[id number] [facility] Stop: 03/12/20 08:58 Last Admin: 02/17/20 07:57 Dose: Not Given Documented by: Nicotine (Nicoderm Cq) 21 mg TD QAM MAG Stop: 03/11/20 12:59 Last Admin: 02/17/20 07:57 Dose: Not Given Documented by: Sodium Chloride ([place] Nasal) 1 - 2 sprays NA PRN PRN PRN Reason: Nasal Dryness/Congestion Stop: 03/10/20 20:58 Temazepam (Restoril) 7.5 mg PO HSZ MAG Stop: 03/10/20 21:59 Last Admin: 02/16/20 20:48 Dose: 7.5 mg Documented by: [facility] Subst [facility] Hospital Receptionist Name of Hospital Receptionist: Shruti Mcbride Phone Number for Hospital Receptionist: [phone] Case Management Appointment Comment: Will come see you Post Discharge Appointments Primary Care Physician Name Of Family Doctor: [facility] - Dr. Jeff Lopez Primary Care Provider Appointment Comment: [address], [address], [place] [address] Contact Information Discharge Discharge Address: [address] [place] [address], [place] [address] (1) Schizophrenia Schizophrenia type: unspecified Qualified Code(s): F20.9 - Schizophrenia, unspecified
[2020-02-17] MEDS: TEMAZEPAM 7.5 MG CAPSULE PO SCH (20:49)
--- NOTE | 2020-02-18 08:36 | Psychiatric Progress Note ---
Date of Service February 18, 2020 Impression / Recommendations Impression Patient is well-known to us as this is his fifth hospitalization in the past 6 months. He has schizophrenia, with chronic noncompliance, leading to an involuntary outpatient commitment (on a 305). He was initially refusing medications, but has now resumed the regimen that was effective during his last 2 hospitalizations (aripiprazole, diazepam, and temazepam). We are encouraging him to consider Abilify Maintena, although would need to ensure it would be covered by his insurance. He remains somewhat depressed, irritable, and isolative, but is improving slowly. We have engaged his extensive outpatient supports in discharge planning, and had a third discharge planning meeting today. They are working on transitioning him from the [facility] to [facility], transitioning him to psychiatric care at [facility], and trying to minimize some of the medication errors/difficulties he has been experiencing when he transitions from inpatient to outpatient treatment. Although he is eating better medication compliance has improved, he still has not showered, is not consistently attending or participating in groups, and remains at risk for suicide if discharged prematurely. (1) Schizophrenia: 02/09 -resume medication regimen he was on at the time of discharge 1 month ago, along with adding prn benztropine and prn Colace for potential s/e to his medications -Pt indicating willing to sign ROIs for his treatment providers and placement -individual therapy and as appropriate group therapy -coordinate with outpt providers and attempt to help coordinate treatment plan given tendency of changes of medication plan at f/u psychiatric appt occurring after discharge in pt compared to discharge medications. 02/10 - continue medication unchanged for now with aim to convert to FARAH form of Abilify if pt will consent, consideration of risks and benefits of Valium dosage to remain as rx'd over time given pt's past usage of those medications and complexity of this case mikey memory concerns and therapeutic alliance aspects that have a complex push and pull of the benefits and risks of this class of medications in complex ways 305 to 306 invol inpt conversion granted this morning (02/10) treatment team meeting with the various people involved in pt's care (outpt and inpt) to address various concerns including medication compliance, behavioral issues of pt, tensions between pt and CRR staff, struggles to avoid decompensation in first weeks after discharge from the hospital, and apparent lack of continuance of inpt discharge medication plan after transition followup outpt psychiatric appointments recently. 02/11 - Continue current medication regimen, consider ongoing discussion regarding potential for conversion to an FARAH - Pt has been compliant with medications, but has not showered and is still limited in his attendance to ADLs - Meeting today with multi-disciplinary treatment team to discuss discharge and future treatment recommendations. Representation from [facility], [facility], and the [facility] were present. 02/12 -Continue medication regimen unchanged. Encouraging consistent compliance. -Another meeting being scheduled for Saturday for multidisciplinary treatment team 02/13 -Continues to appear more apathetic this admission. -Multidisciplinary meeting planned for Wednesday 02/14 - Continue to encourage consistency with his current medication regimen - Aripiprazole adjusted to qAM dosing to encourage opportunity to accept the medication - re-evaluate willingness for FARAH administration when patient is appropriate for this conversation - Multidisciplinary meeting today 02/15 - Continue current medication regimen - patient has been more consistent with medication regimen the past 2 days - Continue to assess willingness for an FARAH when patient becomes more agreeable - Pt is permitted to return to the CRR on discharge, which is his expressed desire as well. Plan is for future transition to a personal retirement within 02/16 - Continue current medication regimen - explore willingness for FARAH - Multidisciplinary discharge planning meeting update for tomorrow - Pt continues to verbalize desire for discharge back to the CRR - pt did indicate desire to shave and shower today, but has yet to take steps to complete these tasks 2 -Third discharge planning meeting held today with Jask[facility] Guadalupe case management and model and pattern supervisor, [facility] staff, social media intern, and Dr. Campos. Patient declined to attend. We will attempt to get him to sign a release for [facility], and Tisha may come and talk with him if he is willing. The plan is for him to return to the CRR in the interim, but to transition to [facility] in the near future. We are also working on transitioning him to Dr. Pizarro at [facility], who will review records and has been invited to contact me if he has any questions. -Patient's caser shoe parts indicates he is often resistant to the caser shoe parts attending psychiatric appointments with him, and would like this to be specified on the involuntary outpatient commitment plan. -Contacted patient's [facility] ([facility]) to cancel all of his previous refills from Dr. Alves, as this was causing significant confusion and he was filling old, discontinued medications as there was still refills left at the pharmacy. -Continue aripiprazole 10 mg every morning; patient's compliance has improved and he has taken it the past 4 days. Has still not agreed to an FARAH, but will continue to encourage transition to Maintena to improve compliance. Fasting labs were last done in 02/2019, so will order for tomorrow for monitoring on an atypical. -He was continued on home doses of temazepam 7.5 mg at bedtime and diazepam 5 mg twice daily, and has been compliant with them the past 3 days. Given risk of sedation and his ongoing poor energy/motivation, I will decrease his diazepam to once daily in the morning. Discussed with his outpatient team that these medications would need to be dispensed daily by staff given his history of benzodiazepine abuse and overdoses. -Patient still appearing depressed, amotivated, irritable, not tending to ADLs, still has not showered despite agreeing to do so. (2) Memory changes: 02/09 -patient was seen by neurology in a recent prior admission and had a scheduled neurology outpt appt on 02/02/2020 that he reported not attending out of not feeling it would be beneficial for him. Neurology has also sought neuropsych testing and this has not occurred as of yet and likely not scheduled, will attempt to coordinate this further during this admission. Pt is noted to have multiple risk factors for A recent brain MRI was notable for mild progressive nonspecific foci of increased T2 signal within the white matter, likely on a small vessel basis, but negative for acute intracranial findings, masses, subacute or acute infarction. He is scheduled to follow-up with Dr. Caal. 02/17 - Discussed concerns for cognitive decline with his OP caser shoe parts, and that this could be due to schizophrenia, a dementing illness, or the effects of medications, specifically benzodiazepines. He has not been sufficiently psychiatrically stable during the past 6 months to determine how much of his cognitive impairment is due to his thought disorder. This will require ongoing monitoring and assessment. There is not sufficient evidence at this time to make a diagnosis of dementia. (3) Tobacco use disorder: 02/09 - pt expressed desire for nicotine patch 21mg a day but then refused when nurses offered it to him, pt refused nicotinate gum offered, pt expressed some interested in quitting smoking but is too psychotic to engage in smoking cessation at this time and will perform once more appropriate to do so 02/10 - been refusing nicotine patch to date, will continue to have offer at this time 02/17 -patient has consistently refused the patch, so we will discontinue it. Risk Factors Assessment Male: Yes : Yes Do You Have Access To A Gun?: No Health Problems: Yes Mental Health Diagnoses: Yes Substance Use Disorders: Yes Previous Attempt: Yes Previous Attempt; Highly Lethal: Yes Previous Psychiatric Hospitalization: Yes Hopelessness: No Smoker: Yes Protective Factors Assessment : No Employed: No Stable Relationships: No Good Rapport with Provider: No Interval History Identifying Information SCOTT ROBERTO is a 74-year-old M who currently lives in in a CRR in [place], has a history of schizophrenia, and was admitted on 02/09/20 21:03 on a 302 involuntary commitment with an active 305 involuntary outpatient commitment for inability to take care of self and disorganized behaviors. Chief Complaint "I'm not coming". Review of Systems Notes ear ringing/buzzing. Sleep Information Total Hours of Sleep: 5.25 Sleep Comments: pt on q-15 minute checks Meal Information Percent Meal Consumed - Breakfast: 100 Percent Meal Consumed - Lunch: 100 Percent Meal Consumed - Dinner: 100 Subjective Subjective Patient was seen & assessed and interval progress reviewed with nursing and social work. Staff report he went to some groups, rated his mood an 8 out of 10 in community meeting. He is supportive of other patients, and is taking meds as directed and eating well. He is still declining to shower, but is performing other ADLs. On my assessment, he is irritable, stating he will not come to the discharge planning meeting being held this morning with jaskaran guadalupe case management and [facility] staff. He had previously agreed to go to this meeting, and indicated willingness to work with his outpatient providers to get a new psychiatrist and consider moving to [facility]. He will not state why he is declining to attend, but states I can inform everyone that he is still willing to switch to [facility] and would like to return to the CRR at discharge. He continues to endorse depression and irritability, and is unwilling to shower, although remains unwilling to explain his reasoning, repeatedly stating he will "do it later." He reports ongoing auditory hallucinations, that have decreased since admission. He is tolerating medications well, and wants to continue with oral medications. He denies other needs or concerns. Participated in discharge planning meeting with his [place] Guadalupe caser shoe parts, Colin Boyle, the caser shoe parts model and pattern supervisor, [facility] staff, and hospital social media intern. This is his third discharge planning meeting during this hospitalization. They discussed that patient is able to return to the [facility], with the hope that he will eventually transition to [facility], where they have 24-hour staff and can give him his medications at the scheduled times. They are in the process of switching his pharmacy to [facility], which sends bubble packs. Aleksandra will be passing on his records to Dr. Pizarro to review and determine if he will accept the patient. Briefly reviewed his treatment course for [facility] staff. Discussed repeated recent hospitalizations (this is his fifth in the past 6 months), last 2 triggered in part by his medications being changed erroneously by his outpatient psychiatrist upon discharge from the hospital. There is an issue as [facility] requires patients be in therapy there, but they do not have a therapist that accepts the patient's insurance (Medicare). Physical Exam Psychiatric Orientation: alert; + uncooperative Apperance: appropriately dressed, appropriately groomed and appeared stated age Eye Contact: good eye contact (Staring intently) Motor Behavior: no abnormal motor movements Speech: normal rate/rhythm/volume of speech Irritated tone Affect: + depressed affect, + irritable affect and + constricted affect; + mood not congruent with affect "Okay." Thought Process: goal directed thought process and + concrete thought process Provides minimal information, gives short answers Paucity of thought content Suicidal Thoughts: denies suicidal thoughts Homicidal Thoughts: denies homicidal thoughts Hallucinations: + auditory hallucinations Cognition: attention grossly intact and language grossly intact Insight: + limited insight Judgement: + limited judgement Vital Signs (Past 24 Hours) Last Vital Signs Temp 36.5 C 02/18/20 06:56 Pulse 77 02/18/20 06:57 Resp 16 02/18/20 06:56 BP 112/68 02/18/20 06:57 Pulse Ox 97 02/09/20 21:18 Results & Data ([facility]) Current Inpatient Medications Current Inpatient Medications: Current Inpatient Medications Acetaminophen (Tylenol) 650 mg PO Q4H PRN PRN Reason: Headache or Minor Fever Stop: 03/10/20 20:58 Al Hydrox/Mg Hydrox/Simethicone (Maalox) 30 ml PO Q4H PRN PRN Reason: GI Upset Stop: 03/10/20 20:58 Aripiprazole (Abilify) 10 mg PO QAM [facility] Stop: 03/16/20 10:29 Last Admin: 02/17/20 07:53 Dose: 10 mg Documented by: Benztropine Mesylate (Cogentin) 0.5 mg PO BID PRN PRN Reason: akasthesia Stop: 03/11/20 10:45 Bismuth Subsalicylate (Kaopectate) 15 ml PO PRN PRN PRN Reason: Loose Stool Stop: 03/10/20 20:58 Diazepam (Valium) 5 mg PO BID [facility] Stop: 03/10/20 21:14 Last Admin: 02/17/20 20:49 Dose: 5 mg Documented by: Docusate Sodium (Colace) 100 mg PO BID PRN PRN Reason: Constipation Stop: 03/11/20 20:59 Hydroxyzine HCl (Vistaril) 50 mg PO HSZ PRN PRN Reason: Insomnia Stop: 03/10/20 20:58 Hydroxyzine HCl (Vistaril) 25 mg PO Q4H PRN PRN Reason: Anxiety Stop: 03/10/20 20:58 Magnesium Hydroxide (Milk Of Magnesia) 30 ml PO DAILY PRN PRN Reason: Constipation Stop: 03/10/20 20:58 Melatonin (Melatonin) 10 mg PO HS PRN PRN Reason: Sleep Stop: 03/10/20 21:07 Miscellaneous (Remove Nicoderm Patch) 1 ea N/A DAILY@[id number] [facility] Stop: 03/12/20 08:58 Last Admin: 02/17/20 07:57 Dose: Not Given Documented by: Nicotine (Nicoderm Cq) 21 mg TD QAM [facility] Stop: 03/11/20 12:59 Last Admin: 02/17/20 07:57 Dose: Not Given Documented by: Sodium Chloride ([place] Nasal) 1 - 2 sprays NA PRN PRN PRN Reason: Nasal Dryness/Congestion Stop: 03/10/20 20:58 Temazepam (Restoril) 7.5 mg PO HSZ [facility] Stop: 03/10/20 21:59 Last Admin: 02/17/20 20:49 Dose: 7.5 mg Documented by: Mental Health & Subst Abuse Tx Honing Job Setter Name of Honing Job Setter: Jaskaran Mcbride Phone Number for Honing Job Setter: [phone] Case Management Appointment Comment: Will come see you Post Discharge Appointments Primary Care Physician Name Of Family Doctor: [facility] - Dr. Jeff Lopez Primary Care Provider Appointment Comment: [address], [address], [place] [address] Contact Information Discharge Discharge [address]: [address] [place] [address] (1) Schizophrenia Schizophrenia type: unspecified Qualified Code(s): F20.9 - Schizophrenia, unspecified
[2020-02-18] MEDS: NICOTINE 21 MG/24 HR TDSY TD SCH (08:52)
[2020-02-18] MEDS: ARIPiprazole 10 MG TAB PO SCH (08:53)
[2020-02-18] MEDS: diazePAM 5 MG TABLET PO SCH (08:53)
[2020-02-18] MEDS: TEMAZEPAM 7.5 MG CAPSULE PO SCH (20:51)
[2020-02-19] MEDS: ARIPiprazole 10 MG TAB PO SCH (08:59)
[2020-02-19] MEDS: diazePAM 5 MG TABLET PO SCH (08:59)
--- NOTE | 2020-02-19 12:05 | Psychiatric Progress Note ---
Date of Service February 19, 2020 Impression / Recommendations Impression Patient is well-known to us as this is his fifth hospitalization in the past 6 months. He has schizophrenia, with chronic noncompliance, leading to an involuntary outpatient commitment (on a 305). He was initially refusing medications, but has now resumed the regimen that was effective during his last 2 hospitalizations (aripiprazole, diazepam, and temazepam). We are encouraging him to consider Abilify Maintena, although would need to ensure it would be covered by his insurance. He remains somewhat depressed, irritable, and isolative, but is improving slowly. We have engaged his extensive outpatient supports in discharge planning, and had a third discharge planning meeting today. They are working on transitioning him from the CRR to [facility], transitioning him to psychiatric care at [facility], and trying to minimize some of the medication errors/difficulties he has been experiencing when he transitions from inpatient to outpatient treatment. Although he is eating better medication compliance has improved, he still has not showered, is not consistently attending or participating in groups, and remains at risk for suicide if discharged prematurely. reviewed and agree. 02/18 plan: continue current meds and treatment plan Risk Factors Assessment Male: Yes : Yes Do You Have Access To A Gun?: No Health Problems: Yes Mental Health Diagnoses: Yes Substance Use Disorders: Yes Previous Attempt: Yes Previous Attempt; Highly Lethal: Yes Previous Psychiatric Hospitalization: Yes Hopelessness: No Smoker: Yes Protective Factors Assessment : No Employed: No Stable Relationships: No Good Rapport with Provider: No Interval History Identifying Information SCOTT ROBERTO is a 74-year-old M who currently lives in in a CRR in [place], has a history of schizophrenia, and was admitted on 02/09/20 21:03 on a 302 involuntary commitment with an active 305 involuntary outpatient commitment for inability to take care of self and disorganized behaviors. Reviewed. Chief Complaint "I wish I could shave, otherwise I have no issues". Review of Systems Sleep Information Total Hours of Sleep: 5.5 Sleep Comments: awake at 0445-toileted and to the kitchen for a drink Meal Information Percent Meal Consumed - Breakfast: 100 Percent Meal Consumed - Lunch: 100 Percent Meal Consumed - Dinner: 100 Subjective Subjective Patient was seen & assessed and interval progress reviewed with treatment team. Cooperative with unit routines, mainly community meeting from group. On MNPR due to past hx of disinhibited behaviors and ongoing aud angeles. He denies any medication related side effects and is calm at this time. He has been unable to maintain in CRR and this is 5th hospitalization in 6 months. Physical Exam Psychiatric Orientation: alert Apperance: appropriately groomed Eye Contact: + fair eye contact Motor Behavior: steady gait and station Speech: normal rate/rhythm/volume of speech Affect: + depressed affect Thought Process: + concrete thought process Thought Content: + delusions Suicidal Thoughts: denies suicidal thoughts Homicidal Thoughts: denies homicidal thoughts Hallucinations: + auditory hallucinations Insight: + poor insight Judgement: + poor judgement Vital Signs (Past 24 Hours) Last Vital Signs Temp 36.5 C 02/19/20 06:00 Pulse 80 02/19/20 06:00 Resp 18 02/19/20 06:00 BP 124/77 02/19/20 06:00 Pulse Ox 97 02/09/20 21:18 Results & Data ([facility]) Current Inpatient Medications Current Inpatient Medications: Current Inpatient Medications Acetaminophen (Tylenol) 650 mg PO Q4H PRN PRN Reason: Headache or Minor Fever Stop: 03/10/20 20:58 Al Hydrox/Mg Hydrox/Simethicone (Maalox) 30 ml PO Q4H PRN PRN Reason: GI Upset Stop: 03/10/20 20:58 [facility]) [facility] Stop: 03/16/20 10:29 Last Admin: 02/19/20 08:59 Dose: 10 mg Documented by: Benztropine Mesylate (Cogentin) 0.5 mg PO BID PRN PRN Reason: akasthesia Stop: 03/11/20 10:45 Bismuth Subsalicylate (Kaopectate) 15 ml PO PRN PRN PRN Reason: Loose Stool Stop: 03/10/20 20:58 Diazepam (Valium) [facility] Stop: 03/20/20 08:59 Last Admin: 02/19/20 08:59 Dose: 5 mg Documented by: Docusate Sodium (Colace) 100 mg PO BID PRN PRN Reason: Constipation Stop: 03/11/20 20:59 Hydroxyzine HCl (Vistaril) 50 mg PO HSZ PRN PRN Reason: Insomnia Stop: 03/10/20 20:58 Hydroxyzine HCl (Vistaril) 25 mg PO Q4H PRN PRN Reason: Anxiety Stop: 03/10/20 20:58 Magnesium Hydroxide (Milk Of Magnesia) 30 ml PO DAILY PRN PRN Reason: Constipation Stop: 03/10/20 20:58 Melatonin (Melatonin) 10 mg PO HS PRN PRN Reason: Sleep Stop: 03/10/20 21:07 Sodium Chloride ([place] Nasal) 1 - 2 sprays NA PRN PRN PRN Reason: Nasal Dryness/Congestion Stop: 03/10/20 20:58 Temazepam (Restoril) 7.5 mg PO HSZ [facility] Stop: 03/10/20 21:59 Last Admin: 02/18/20 20:51 Dose: 7.5 mg Documented by: Mental Health & Subst Abuse Tx Engineering Production Worker Name of Engineering Production Worker: Shruti Mcbride Phone Number for Engineering Production Worker: [phone] Case Management Appointment Comment: Will come see you Post Discharge Appointments Primary Care Physician Name Of Family Doctor: [facility] - Dr. Jeff Lopez Primary Care Provider Appointment Comment: [address], [address], [place] [address] Contact Information Discharge Discharge Address: [address] [place], [place] [address]izabella [place]eng, [place] [address]
[2020-02-19] MEDS: TEMAZEPAM 7.5 MG CAPSULE PO SCH (20:58)
[2020-02-20] MEDS: ARIPiprazole 10 MG TAB PO SCH (09:42)
[2020-02-20] MEDS: diazePAM 5 MG TABLET PO SCH (09:43)
--- NOTE | 2020-02-20 11:30 | Psychiatric Progress Note ---
Date of Service February 20, 2020 Impression / Recommendations Impression Patient is well-known to us as this is his fifth hospitalization in the past 6 months. He has schizophrenia, with chronic noncompliance, leading to an involuntary outpatient commitment (on a 305). He was initially refusing medications, but has now resumed the regimen that was effective during his last 2 hospitalizations (aripiprazole, diazepam, and temazepam). We are encouraging him to consider Abilify Maintena, although would need to ensure it would be covered by his insurance. He remains somewhat depressed, irritable, and isolative, but is improving slowly. We have engaged his extensive outpatient supports in discharge planning, and had a third discharge planning meeting today. They are working on transitioning him from the [facility] to [facility], transitioning him to psychiatric care at [facility], and trying to minimize some of the medication errors/difficulties he has been experiencing when he transitions from inpatient to outpatient treatment. Although he is eating better medication compliance has improved, he still has not showered, is not consistently attending or participating in groups, and remains at risk for suicide if discharged prematurely. reviewed and agree. 02/19 plan: continue current meds and treatment plan Risk Factors Assessment Male: Yes : Yes Do You Have Access To A Gun?: No Health Problems: Yes Mental Health Diagnoses: Yes Substance Use Disorders: Yes Previous Attempt: Yes Previous Attempt; Highly Lethal: Yes Previous Psychiatric Hospitalization: Yes Hopelessness: No Smoker: Yes Protective Factors Assessment : No Employed: No Stable Relationships: No Good Rapport with Provider: No Interval History Identifying Information SCOTT ROBERTO is a 74-year-old M who currently lives in in a CRR in [place], has a history of schizophrenia, and was admitted on 02/09/20 21:03 on a 302 involuntary commitment with an active 305 involuntary outpatient commitment for inability to take care of self and disorganized behaviors. Reviewed. Chief Complaint "really, I'm good". Review of Systems Sleep Information Total Hours of Sleep: 5.5 Sleep Comments: Jamie wakes up early most mornings. Meal Information Percent Meal Consumed - Breakfast: 100 Percent Meal Consumed - Lunch: 100 Percent Meal Consumed - Dinner: 100 Subjective Subjective Patient was seen & assessed and interval progress reviewed with nursing. Hasn't showered. Continues to decline injectables. Physical Exam Psychiatric Orientation: alert Apperance: appropriately groomed Eye Contact: + fair eye contact Motor Behavior: no abnormal motor movements Affect: euthymic affect Mood: + depressed mood Thought Process: + concrete thought process Thought Content: + delusions Suicidal Thoughts: denies suicidal thoughts Homicidal Thoughts: denies homicidal thoughts Hallucinations: + auditory hallucinations Vital Signs (Past 24 Hours) Last Vital Signs Temp 36.4 C L 02/20/20 06:51 Pulse 65 02/20/20 06:52 Resp 18 02/20/20 06:51 BP 124/72 02/20/20 06:52 Pulse Ox 97 02/09/20 21:18 Results & Data ([facility]) Current Inpatient Medications Current Inpatient Medications: Current Inpatient Medications Acetaminophen (Tylenol) 650 mg PO Q4H PRN PRN Reason: Headache or Minor Fever Stop: 03/10/20 20:58 Al Hydrox/Mg Hydrox/Simethicone (Maalox) 30 ml PO Q4H PRN PRN Reason: GI Upset Stop: 03/10/20 20:58 Aripiprazole (Abilify) 10 mg PO [facility] Stop: 03/16/20 10:29 Last Admin: 02/20/20 09:42 Dose: 10 mg Documented by: Benztropine Mesylate (Cogentin) 0.5 mg PO BID PRN PRN Reason: akasthesia Stop: 03/11/20 10:45 Bismuth Subsalicylate (Kaopectate) 15 ml PO PRN PRN PRN Reason: Loose Stool Stop: 03/10/20 20:58 Diazepam (Valium) [facility] Stop: 03/20/20 08:59 Last Admin: 02/20/20 09:43 Dose: 5 mg Documented by: Docusate Sodium (Colace) 100 mg PO BID PRN PRN Reason: Constipation Stop: 03/11/20 20:59 Hydroxyzine HCl (Vistaril) 50 mg PO HSZ PRN PRN Reason: Insomnia Stop: 03/10/20 20:58 Hydroxyzine HCl (Vistaril) 25 mg PO Q4H PRN PRN Reason: Anxiety Stop: 03/10/20 20:58 Magnesium Hydroxide (Milk Of Magnesia) 30 ml PO DAILY PRN PRN Reason: Constipation Stop: 03/10/20 20:58 Melatonin (Melatonin) 10 mg PO HS PRN PRN Reason: Sleep Stop: 03/10/20 21:07 Sodium Chloride ([place] Nasal) 1 - 2 sprays NA PRN PRN PRN Reason: Nasal Dryness/Congestion Stop: 03/10/20 20:58 Temazepam (Restoril) 7.5 mg PO HSZ MAG Stop: 03/10/20 21:59 Last Admin: 02/19/20 20:58 Dose: 7.5 mg Documented by: Mental Health & Subst Abuse Tx Icebox Worker Name of Icebox Worker: Shruti Mcbride Phone Number for Icebox Worker: [phone] Case Management Appointment Comment: Will come see you Post Discharge Appointments Primary Care Physician Name Of Family Doctor: [facility] - Dr. Jeff Lopez Primary Care Provider Appointment Comment: [address], [address], [place] [address] Contact Information Discharge Discharge Address: [address] [place] [id number]
[2020-02-20] MEDS: TEMAZEPAM 7.5 MG CAPSULE PO SCH (22:28)
[2020-02-21] MEDS: diazePAM 5 MG TABLET PO SCH (10:03)
[2020-02-21] MEDS: ARIPiprazole 10 MG TAB PO SCH (10:03)
--- NOTE | 2020-02-21 11:16 | Psychiatric Progress Note ---
Date of Service February 21, 2020 Impression / Recommendations Impression Patient is well-known to us as this is his fifth hospitalization in the past 6 months. He has schizophrenia, with chronic noncompliance, leading to an involuntary outpatient commitment (on a 305). He was initially refusing medications, but has now resumed the regimen that was effective during his last 2 hospitalizations (aripiprazole, diazepam, and temazepam). We are encouraging him to consider Abilify Maintena, although would need to ensure it would be covered by his insurance. He remains somewhat depressed, irritable, and isolative, but is improving slowly. We have engaged his extensive outpatient supports in discharge planning, and had a third discharge planning meeting today. They are working on transitioning him from the [facility] to [facility], transitioning him to psychiatric care at [facility], and trying to minimize some of the medication errors/difficulties he has been experiencing when he transitions from inpatient to outpatient treatment. Although he is eating better medication compliance has improved, he still has not showered, is not consistently attending or participating in groups, and remains at risk for suicide if discharged prematurely. reviewed and agree. 02/20 plan: continue current meds and treatment plan, meeting with [facility] 02/23 Risk Factors Assessment Male: Yes : Yes Do You Have Access To A Gun?: No Health Problems: Yes Mental Health Diagnoses: Yes Substance Use Disorders: Yes Previous Attempt: Yes Previous Attempt; Highly Lethal: Yes Previous Psychiatric Hospitalization: Yes Hopelessness: No Smoker: Yes Protective Factors Assessment : No Employed: No Stable Relationships: No Good Rapport with Provider: No Interval History Identifying Information SCOTT ROBERTO is a 74-year-old M who currently lives in in a CRR in [place], has a history of schizophrenia, and was admitted on 02/09/20 21:03 on a 302 involuntary commitment with an active 305 involuntary outpatient commitment for inability to take care of self and disorganized behaviors. Reviewed. Chief Complaint "I don't sleep well". Review of Systems Sleep Information Total Hours of Sleep: 6.5 Sleep Comments: Jamie wakes up early most mornings. Meal Information Percent Meal Consumed - Breakfast: 100 Percent Meal Consumed - Lunch: 100 Percent Meal Consumed - Dinner: 100 Subjective Subjective Patient was seen & assessed and interval progress reviewed with nursing and social work. Generally asks for more controlled substance medication. Staff confirmed with pharmacy that no outstanding med refills. Physical Exam Psychiatric Orientation: alert Apperance: appropriately dressed Eye Contact: + fair eye contact Motor Behavior: no abnormal motor movements Speech: normal rate/rhythm/volume of speech Affect: euthymic affect Mood: + depressed mood Thought Process: + concrete thought process Thought Content: + delusions Suicidal Thoughts: denies suicidal thoughts Homicidal Thoughts: denies homicidal thoughts Hallucinations: no auditory hallucinations and no visual hallucinations Vital Signs (Past 24 Hours) Last Vital Signs Temp 36.6 C 02/21/20 06:37 Pulse 72 02/21/20 06:38 Resp 18 02/21/20 06:37 BP 110/62 02/21/20 06:38 Pulse Ox 97 02/09/20 21:18 Results & Data ([facility]) Current Inpatient Medications Current Inpatient Medications: Current Inpatient Medications Acetaminophen (Tylenol) 650 mg PO Q4H PRN PRN Reason: Headache or Minor Fever Stop: 03/10/20 20:58 Al Hydrox/Mg Hydrox/Simethicone (Maalox) 30 ml PO Q4H PRN PRN Reason: GI Upset Stop: 03/10/20 20:58 Aripiprazole (Abilify) 10 mg PO [facility] Stop: 03/16/20 10:29 Last Admin: 02/21/20 10:03 Dose: 10 mg Documented by: Benztropine Mesylate (Cogentin) 0.5 mg PO BID PRN PRN Reason: akasthesia Stop: 03/11/20 10:45 Bismuth Subsalicylate (Kaopectate) 15 ml PO PRN PRN PRN Reason: Loose Stool Stop: 03/10/20 20:58 [facility]iazep[facility] (Valium) [facility] Stop: 03/20/20 08:59 Last Admin: 02/21/20 10:03 Dose: 5 mg Documented by: Docusate Sodium (Colace) 100 mg PO BID PRN PRN Reason: Constipation Stop: 03/11/20 20:59 Hydroxyzine HCl (Vistaril) 50 mg PO HSZ PRN PRN Reason: Insomnia Stop: 03/10/20 20:58 Hydroxyzine HCl (Vistaril) 25 mg PO Q4H PRN PRN Reason: Anxiety Stop: 03/10/20 20:58 Magnesium Hydroxide (Milk Of Magnesia) 30 ml PO DAILY PRN PRN Reason: Constipation Stop: 03/10/20 20:58 Melatonin (Melatonin) 10 mg PO HS PRN PRN Reason: Sleep Stop: 03/10/20 21:07 Sodium Chloride ([place] Nasal) 1 - 2 sprays NA PRN PRN PRN Reason: Nasal Dryness/Congestion Stop: 03/10/20 20:58 Temazepam (Restoril) 7.5 mg PO HSZ MAG Stop: 03/10/20 21:59 Last Admin: 02/20/20 22:28 Dose: 7.5 mg Documented by: Mental Health & Subst Abuse Tx Warble Saw Operator Name of Warble Saw Operator: Shruti Mcbride Phone Number for Warble Saw Operator: [phone] Case Management Appointment Comment: Will come see you Post Discharge Appointments Primary Care Physician Name Of Family Doctor: [facility] - Dr. Jeff Lopez Primary Care Provider Appointment Comment: [address], [address], [place] [address] Contact Information Discharge Discharge Address: [address] [place] [address], [place] [address]
[2020-02-21] MEDS: TEMAZEPAM 7.5 MG CAPSULE PO SCH (20:59)
[2020-02-22] MEDS: diazePAM 5 MG TABLET PO SCH (08:30)
[2020-02-22] MEDS: ARIPiprazole 10 MG TAB PO SCH (08:30)
--- NOTE | 2020-02-22 10:41 | Psychiatric Progress Note ---
Date of Service February 22, 2020 Impression / Recommendations Impression Patient is well-known to us as this is his fifth hospitalization in the past 6 months. He has schizophrenia, with chronic noncompliance, leading to an involuntary outpatient commitment (on a 305). He was initially refusing medications, but has now resumed the regimen that was effective during his last 2 hospitalizations (aripiprazole, diazepam, and temazepam). We are encouraging him to consider Abilify Maintena, although would need to ensure it would be covered by his insurance. He remains somewhat depressed, irritable, and isolative, but is improving slowly. We have engaged his extensive outpatient supports in discharge planning, and had a third discharge planning meeting today. They are working on transitioning him from the [facility] to [facility], transitioning him to psychiatric care at [facility], and trying to minimize some of the medication errors/difficulties he has been experiencing when he transitions from inpatient to outpatient treatment. Although he is eating better medication compliance has improved, he still has not showered, is not consistently attending or participating in groups, and remains at risk for suicide if discharged prematurely. reviewed and agree. 02/21 plan: continue current meds and treatment plan, meeting with [facility] 02/23 Risk Factors Assessment Male: Yes : Yes Do You Have Access To A Gun?: No Health Problems: Yes Mental Health Diagnoses: Yes Substance Use Disorders: Yes Previous Attempt: Yes Previous Attempt; Highly Lethal: Yes Previous Psychiatric Hospitalization: Yes Hopelessness: No Smoker: Yes Protective Factors Assessment : No Employed: No Stable Relationships: No Good Rapport with Provider: No Interval History Identifying Information SCOTT ROBERTO is a 74-year-old M who currently lives in in a CRR in [place], has a history of schizophrenia, and was admitted on 02/09/20 21:03 on a 302 involuntary commitment with an active 305 involuntary outpatient commitment for inability to take care of self and disorganized behaviors. Reviewed. Chief Complaint "I'm fine". Review of Systems Sleep Information Total Hours of Sleep: 8.25 Sleep Comments: awake just before 0600 to get a bottle of martha jamia to drink Meal Information Percent Meal Consumed - Breakfast: 100 Percent Meal Consumed - Lunch: 100 Percent Meal Consumed - Dinner: 100 Subjective Subjective Patient was seen & assessed and interval progress reviewed with treatment team. no acute issues overnight. He was made aware of planning meeting. Physical Exam Psychiatric Orientation: alert Apperance: appropriately groomed Eye Contact: + fair eye contact Motor Behavior: no abnormal motor movements Speech: normal rate/rhythm/volume of speech Affect: euthymic affect Mood: + depressed mood Thought Process: linear/logical thought process Thought Content: reality based without delusions Suicidal Thoughts: denies suicidal thoughts Homicidal Thoughts: denies homicidal thoughts Hallucinations: no auditory hallucinations and no visual hallucinations Vital Signs (Past 24 Hours) Last Vital Signs Temp 36.4 C L 02/22/20 06:53 Pulse 69 02/22/20 06:53 Resp 18 02/22/20 06:53 BP 130/80 02/22/20 06:53 Pulse Ox 97 02/09/20 21:18 Results & Data ([facility]) Current Inpatient Medications Current Inpatient Medications: Current Inpatient Medications Acetaminophen (Tylenol) 650 mg PO Q4H PRN PRN Reason: Headache or Minor Fever Stop: 03/10/20 20:58 Al Hydrox/Mg Hydrox/Simethicone (Maalox) 30 ml PO Q4H PRN PRN Reason: GI Upset Stop: 03/10/20 20:58 Aripiprazole (Abilify) 10 mg PO [facility] Stop: 03/16/20 10:29 Last Admin: 02/22/20 08:30 Dose: 10 mg Documented by: Benztropine Mesylate (Cogentin) 0.5 mg PO BID PRN PRN Reason: akasthesia Stop: 03/11/20 10:45 Bismuth Subsalicylate (Kaopectate) 15 ml PO PRN PRN PRN Reason: Loose Stool Stop: 03/10/20 20:58 Diazepam (Valium) [facility] Stop: 03/20/20 08:59 Last Admin: 02/22/20 08:30 Dose: 5 mg Documented by: Docusate Sodium (Colace) 100 mg PO BID PRN PRN Reason: Constipation Stop: 03/11/20 20:59 Hydroxyzine HCl (Vistaril) 50 mg PO HSZ PRN PRN Reason: Insomnia Stop: 03/10/20 20:58 Hydroxyzine HCl (Vistaril) 25 mg PO Q4H PRN PRN Reason: Anxiety Stop: 03/10/20 20:58 Magnesium Hydroxide (Milk Of Magnesia) 30 ml PO DAILY PRN PRN Reason: Constipation Stop: 03/10/20 20:58 Melatonin (Melatonin) 10 mg PO HS PRN PRN Reason: Sleep Stop: 03/10/20 21:07 Sodium Chloride ([place] Nasal) 1 - 2 sprays NA PRN PRN PRN Reason: Nasal Dryness/Congestion Stop: 03/10/20 20:58 Temazepam (Restoril) 7.5 mg PO HSZ MAG Stop: 03/10/20 21:59 Last Admin: 02/21/20 20:59 Dose: 7.5 mg Documented by: Mental Health & Subst Abuse Tx Enforcement Officer Name of Enforcement Officer: Shruti Mcbride Phone Number for Enforcement Officer: [phone] Case Management Appointment Comment: Will come see you Post Discharge Appointments Primary Care Physician Name Of Family Doctor: [facility] - Dr. Jeff Lopez Primary Care Provider Appointment Comment: [address], [address], [place] [address] Contact Information Discharge Discharge Address: [address] [place] [address], [place] [address]
[2020-02-22] MEDS: TEMAZEPAM 7.5 MG CAPSULE PO SCH (21:11)
[2020-02-23] MEDS: diazePAM 5 MG TABLET PO SCH (08:05)
[2020-02-23] MEDS: ARIPiprazole 10 MG TAB PO SCH (08:05)
--- NOTE | 2020-02-23 09:29 | Psychiatric Progress Note ---
Date of Service February 23, 2020 Impression / Recommendations Impression Patient is well-known to us as this is his fifth hospitalization in the past 6 months. He has schizophrenia, with chronic noncompliance, leading to an involuntary outpatient commitment (on a 305). He was initially refusing medications, but has now resumed the regimen that was effective during his last 2 hospitalizations (aripiprazole, diazepam, and temazepam). We are encouraging him to consider Abilify Maintena, though he is declining to consider this option at this time. He remains somewhat depressed, irritable, and isolative, but is improving slowly. We have engaged his extensive outpatient supports in d ischarge planning, having had several meetings to coordinate appropriate aftercare. They are working on transitioning him from the [facility] to [facility], transitioning him to psychiatric care at [facility], and trying to minimize some of the medication errors/difficulties he has been experiencing when he transitions from inpatient to outpatient treatment. Although he is eating better medication compliance has improved, he still has not showered, is not consistently attending or participating in groups, and remains at risk for suicide if discharged prematurely. (1) Schizophrenia: 02/09 -resume medication regimen he was on at the time of discharge 1 month ago, along with adding prn benztropine and prn Colace for potential s/e to his medications -Pt indicating willing to sign ROIs for his treatment providers and placement -individual therapy and as appropriate group therapy -coordinate with outpt providers and attempt to help coordinate treatment plan given tendency of changes of medication plan at f/u psychiatric appt occurring after discharge in pt compared to discharge medications. 02/10 - continue medication unchanged for now with aim to convert to FARAH form of Abilify if pt will consent, consideration of risks and benefits of Valium dosage to remain as rx'd over time given pt's past usage of those medications and complexity of this case mikey memory concerns and therapeutic alliance aspects that have a complex push and pull of the benefits and risks of this class of medications in complex ways 305 to 306 invol inpt conversion granted this morning (02/10) treatment team meeting with the various people involved in pt's care (outpt and inpt) to address various concerns including medication compliance, behavioral issues of pt, tensions between pt and CRR staff, struggles to avoid decompensation in first weeks after discharge from the hospital, and apparent lack of continuance of inpt discharge medication plan after transition followup outpt psychiatric appointments recently. 02/11 - Continue current medication regimen, consider ongoing discussion regarding potential for conversion to an FARAH - Pt has been compliant with medications, but has not showered and is still limited in his attendance to ADLs - Meeting today with multi-disciplinary treatment team to discuss discharge and future treatment recommendations. Representation from R, Shruti Guadalupe, and the [facility] were present. 02/12 -Continue medication regimen unchanged. Encouraging consistent compliance. -Another meeting being scheduled for Saturday for multidisciplinary treatment team 02/13 -Continues to appear more apathetic this admission. -Multidisciplinary meeting planned for Wednesday 02/14 - Continue to encourage consistency with his current medication regimen - Aripiprazole adjusted to qAM dosing to encourage opportunity to accept the medication - re-evaluate willingness for FARAH administration when patient is appropriate for this conversation - Multidisciplinary meeting today 02/15 - Continue current medication regimen - patient has been more consistent with medication regimen the past 2 days - Continue to assess willingness for an FARAH when patient becomes more agreeable - Pt is permitted to return to the CRR on discharge, which is his expressed desire as well. Plan is for future transition to a personal usp within 02/16 - Continue current medication regimen - explore willingness for FARAH - Multidisciplinary discharge planning meeting update for tomorrow - Pt continues to verbalize desire for discharge back to the CRR - pt did indicate desire to shave and shower today, but has yet to take steps to complete these tasks 02/17 -Third discharge planning meeting held today with Shruti Guadalupe case management and supervisor fitting, [facility] staff, healthcare social worker, and Dr. Campos. Patient declined to attend. We will attempt to get him to sign a release for [facility], and Tisha may come and talk with him if he is willing. The plan is for him to return to the CR[facility] in the interim, but to transition to [facility] in the near future. We are also working on transitioning him to Dr. Pizarro at [facility], who will review records and has been invited to contact me if he has any questions. -Patient's marketing area manager indicates he is often resistant to the marketing area manager attending psychiatric appointments with him, and would like this to be specified on the involuntary outpatient commitment plan. -Contacted patient's pharmacy ([facility]) to cancel all of his previous refills from Dr. Alves, as this was causing significant confusion and he was filling old, discontinued medications as there was still refills left at the pharmacy. -Continue aripiprazole 10 mg every morning; patient's compliance has improved and he has taken it the past 4 days. Has still not agreed to an FARAH, but will continue to encourage transition to Maintena to improve compliance. Fasting labs were last done in 02/2019, so will order for tomorrow for monitoring on an atypical. -He was continued on home doses of temazepam 7.5 mg at bedtime and diazepam 5 mg twice daily, and has been compliant with them the past 3 days. Given risk of sedation and his ongoing poor energy/motivation, I will decrease his diazepam to once daily in the morning. Discussed with his outpatient team that these medications would need to be dispensed daily by staff given his history of benzodiazepine abuse and overdoses. -Patient still appearing depressed, amotivated, irritable, not tending to ADLs, still has not showered despite agreeing to do so. 02/18 - 02/21 continue current meds and treatment plan 02/22 - Continue current treatment plan - Multidisciplinary meeting scheduled for 02/23 via Zoom to coordinate aftercare services - Awaiting confirmation that patient can be seen at [facility] for psychiatric medication management (2) Memory changes: 02/09 -patient was seen by neurology in a recent prior admission and had a scheduled neurology outpt appt on 02/02/2020 that he reported not attending out of not feeling it would be beneficial for him. Neurology has also sought neuropsych testing and this has not occurred as of yet and likely not scheduled, will attempt to coordinate this further during this admission. Pt is noted to have multiple risk factors for A recent brain MRI was notable for mild progressive nonspecific foci of increased T2 signal within the white matter, likely on a small vessel basis, but negative for acute intracranial findings, masses, subacute or acute infarction. He is scheduled to follow-up with Dr. Caal. 02/17 - Discussed concerns for cognitive decline with his OP marketing area manager, and that this could be due to schizophrenia, a dementing illness, or the effects of medications, specifically benzodiazepines. He has not been sufficiently psychiatrically stable during the past 6 months to determine how much of his cognitive impairment is due to his thought disorder. This will require ongoing monitoring and assessment. There is not sufficient evidence at this time to make a diagnosis of dementia. (3) Tobacco use disorder: 02/09 - pt expressed desire for nicotine patch 21mg a day but then refused when nurses offered it to him, pt refused nicotinate gum offered, pt expressed some interested in quitting smoking but is too psychotic to engage in smoking cessation at this time and will perform once more appropriate to do so 02/10 - been refusing nicotine patch to date, will continue to have offer at this time 02/17 -patient has consistently refused the patch, so we will discontinue it. Risk Factors Assessment Male: Yes : Yes Do You Have Access To A Gun?: No Health Problems: Yes Mental Health Diagnoses: Yes Substance Use Disorders: Yes Previous Attempt: Yes Previous Attempt; Highly Lethal: Yes Previous Psychiatric Hospitalization: Yes Hopelessness: No Smoker: Yes Protective Factors Assessment : No Employed: No Stable Relationships: No Good Rapport with Provider: No Interval History Identifying Information SCOTT ROBERTO is a 74-year-old M who currently lives in in a CRR in [place], has a history of schizophrenia, and was admitted on 02/09/20 21:03 on a 302 involuntary commitment with an active 305 involuntary outpatient commitment for inability to take care of self and disorganized behaviors. Chief Complaint "Ok. Nothing new." Review of Systems Notes Constitutional: denied Cardiovascular: denied Respiratory: denied Gastrointestinal: denied Neurological: denied Psychiatric: denies symptoms other than stated above Total of at least 10 systems reviewed, pertinent positives as above and in HPI. Sleep Information Total Hours of Sleep: 8 Sleep Comments: awake, as usual, just before 0600 to have staff get a martha jamia from the fridge for him. Meal Information Percent Meal Consumed - Breakfast: 100 Percent Meal Consumed - Lunch: 100 Percent Meal Consumed - Dinner: 100 Subjective Subjective Patient was seen & assessed and interval progress reviewed with nursing and social work. Staff report the patient has maintained behavior - eating better, but still not showered or attending groups regularly. Multidisciplinary meeting with extensive outpatient team is scheduled for tomorrow morning. Pt was seen today to assess progress since admission. Pt states he is "ok" with "nothing new." Pt was requested to inform this provider of activity over the weekend, with patient stating "nothing different." He reports feeling "real good" at this point, again stating "I didn't really need to be here to begin with." Pt continues to believe that the criteria for his 302 was "made up, I guess." He continues to believe that aripiprazole is a "sugar pill", but has continued to take the medication consistently. He denies SI as well as other needs or concerns at this time. Physical Exam Psychiatric Orientation: alert and cooperative (superficially ) Apperance: appropriately dressed (but has not changed out of jeans and long- sleeve shirt since admission) and + disheveled; + inappropriately groomed Eye Contact: + fair eye contact Motor Behavior: no abnormal motor movements (observed while laying in bed) Speech: normal rate/rhythm/volume of speech (monotone) Affect: + flat affect Mood: no depressed mood ("Feeling real good") Thought Process: + concrete thought process Thought Content: not paranoid and no hopelessness Suicidal Thoughts: denies suicidal thoughts Homicidal Thoughts: denies homicidal thoughts Hallucinations: no auditory hallucinations and no visual hallucinations Cognition: attention grossly intact and language grossly intact Insight: + limited insight (chronic) Judgement: + limited judgement Vital Signs (Past 24 Hours) Last Vital Signs Temp 36.4 C L 02/23/20 06:50 Pulse 65 02/23/20 06:57 Resp 18 02/23/20 06:50 BP 124/73 02/23/20 06:57 Pulse Ox 97 02/09/20 21:18 Results & Data ([facility]) Current Inpatient Medications Current Inpatient Medications: Current Inpatient Medications Acetaminophen (Tylenol) 650 mg PO Q4H PRN PRN Reason: Headache or Minor Fever Stop: 03/10/20 20:58 Al Hydrox/Mg Hydrox/Simethicone (Maalox) 30 ml PO Q4H PRN PRN Reason: GI Upset Stop: 03/10/20 20:58 Aripiprazole (Abilify) 10 mg PO QAM [facility] Stop: 03/16/20 10:29 Last Admin: 02/23/20 08:05 Dose: 10 mg Documented by: Benztropine Mesylate (Cogentin) 0.5 mg PO BID PRN PRN Reason: akasthesia Stop: 03/11/20 10:45 Bismuth Subsalicylate (Kaopectate) 15 ml PO PRN PRN PRN Reason: Loose Stool Stop: 03/10/20 20:58 Diazepam (Valium) 5 mg PO QAM MAG Stop: 03/20/20 08:59 Last Admin: 02/23/20 08:05 Dose: 5 mg Documented by: Docusate Sodium (Colace) 100 mg PO BID PRN PRN Reason: Constipation Stop: 03/11/20 20:59 Hydroxyzine HCl (Vistaril) 50 mg PO HSZ PRN PRN Reason: Insomnia Stop: 03/10/20 20:58 Hydroxyzine HCl (Vistaril) 25 mg PO Q4H PRN PRN Reason: Anxiety Stop: 03/10/20 20:58 Magnesium Hydroxide (Milk Of Magnesia) 30 ml PO DAILY PRN PRN Reason: Constipation Stop: 03/10/20 20:58 Melatonin (Melatonin) 10 mg PO HS PRN PRN Reason: Sleep Stop: 03/10/20 21:07 Sodium Chloride (Barber Nasal) 1 - 2 sprays NA PRN PRN PRN Reason: Nasal Dryness/Congestion Stop: 03/10/20 20:58 Temazepam (Restoril) 7.5 mg PO HSZ MAG Stop: 03/10/20 21:59 Last Admin: 02/22/20 21:11 Dose: 7.5 mg Documented by: Mental Health & Subst Abuse Tx Psychiatrist Name of Psychiatrist: Aleksandra Psychiatrist's Psychiatric Appointment Comment: [phone] [facility] Therapist Name of Therapist: Aleksandra Therapist's Therapy Appointment Comment: [address] [facility] Conference Services Coordinator Name of Conference Services Coordinator: Shruti Mcbride Phone Number for Conference Services Coordinator: [phone] Case Management Appointment Comment: Will come see you Post Discharge Appointments Primary Care Physician Name Of Family Doctor: [facility] - Dr. Jeff Loepz Primary Care Provider Appointment Comment: [address], [place] [id number], [place] [address] Contact Information Discharge Discharge [address]: [address] [place] [phone] (1) Schizophrenia Schizophrenia type: unspecified Qualified Code(s): F20.9 - Schizophrenia, unspecified
[2020-02-23] MEDS: TEMAZEPAM 7.5 MG CAPSULE PO SCH (20:57)
[2020-02-24] MEDS: ARIPiprazole 10 MG TAB PO SCH (09:52)
[2020-02-24] MEDS: diazePAM 5 MG TABLET PO SCH (09:52)
--- NOTE | 2020-02-24 12:31 | Psychiatric Progress Note ---
Date of Service February 24, 2020 Impression / Recommendations Impression Patient is well-known to us as this is his fifth hospitalization in the past 6 months. He has schizophrenia, with chronic noncompliance, leading to an involuntary outpatient commitment (on a 305). He was initially refusing medications, but has now resumed the regimen that was effective during his last 2 hospitalizations (aripiprazole, diazepam, and temazepam). We are encouraging him to consider Abilify Maintena, though he is declining. He remains somewhat depressed, irritable, and isolative, but is improving slowly. We have engaged his extensive outpatient supports in discharge planning, having now had for discharge planning meetings to coordinate services. They are working on transitioning him from the [facility] to [facility], transitioning him to psychiatric care at [facility], and trying to minimize some of the medication errors/difficulties he has been experiencing when he transitions from inpatient to outpatient treatment. Although he is eating better and medication compliance has improved, he still has not showered, is not consistently attending or participating in groups, and remains at risk for suicide if discharged prematurely. (1) Schizophrenia: 02/09 -resume medication regimen he was on at the time of discharge 1 month ago, along with adding prn benztropine and prn Colace for potential s/e to his medications -Pt indicating willing to sign ROIs for his treatment providers and placement -individual therapy and as appropriate group therapy -coordinate with outpt providers and attempt to help coordinate treatment plan given tendency of changes of medication plan at f/u psychiatric appt occurring after discharge in pt compared to discharge medications. 02/10 - continue medication unchanged for now with aim to convert to FARAH form of Abilify if pt will consent, consideration of risks and benefits of Valium dosage to remain as rx'd over time given pt's past usage of those medications and complexity of this case mikey memory concerns and therapeutic alliance aspects that have a complex push and pull of the benefits and risks of this class of medications in complex ways 305 to 306 invol inpt conversion granted this morning (02/10) treatment team meeting with the various people involved in pt's care (outpt and inpt) to address various concerns including medication compliance, behavioral issues of pt, tensions between pt and CRR staff, struggles to avoid decompensation in first weeks after discharge from the hospital, and apparent lack of continuance of inpt discharge medication plan after transition followup outpt psychiatric appointments recently. 02/11 - Continue current medication regimen, consider ongoing discussion regarding potential for conversion to an FARAH - Pt has been compliant with medications, but has not showered and is still limited in his attendance to ADLs - Meeting today with multi-disciplinary treatment team to discuss discharge and future treatment recommendations. Representation from [facility], Shruti Guadalupe, and the [facility] were present. 02/12 -Continue medication regimen unchanged. Encouraging consistent compliance. -Another meeting being scheduled for Saturday for multidisciplinary treatment team 02/13 -Continues to appear more apathetic this admission. -Multidisciplinary meeting planned for Wednesday 02/14 - Continue to encourage consistency with his current medication regimen - Aripiprazole adjusted to qAM dosing to encourage opportunity to accept the medication - re-evaluate willingness for FARAH administration when patient is appropriate for this conversation - Multidisciplinary meeting today 02/15 - Continue current medication regimen - patient has been more consistent with medication regimen the past 2 days - Continue to assess willingness for an FARAH when patient becomes more agreeable - Pt is permitted to return to the CRR on discharge, which is his expressed desire as well. Plan is for future transition to a personal half-way within 02/16 - Continue current medication regimen - explore willingness for FARAH - Multidisciplinary discharge planning meeting update for tomorrow - Pt continues to verbalize desire for discharge back to the CRR - pt did indicate desire to shave and shower today, but has yet to take steps to complete these tasks 02/17 -Third discharge planning meeting held today with Shruti Guadalupe case management and roller printing supervisor, [facility] staff, family welfare social work professor, and Dr. Campos. Patient declined to attend. We will attempt to get him to sign a release for Te[facility] Castano, and Tisha may come and talk with him if he is willing. The plan is for him to return to the CRR in the interim, but to transition to [facility] in the near future. We are also working on transitioning him to Dr. Pizarro at [facility], who will review records and has been invited to contact me if he has any questions. -Patient's leather case finisher indicates he is often resistant to the leather case finisher attending psychiatric appointments with him, and would like this to be specified on the involuntary outpatient commitment plan. -[facility]ed [facility]'s [facility] ([facility] to cancel all of his previous refills from Dr. Alves, as this was causing significant confusion and he was filling old, discontinued medications as there was still refills left at the pharmacy. -Continue aripiprazole 10 mg every morning; patient's compliance has improved and he has taken it the past 4 days. Has still not agreed to an FARAH, but will continue to encourage transition to Maintena to improve compliance. Fasting labs were last done in 02/2019, so will order for tomorrow for monitoring on an atypical. -He was continued on home doses of temazepam 7.5 mg at bedtime and diazepam 5 mg twice daily, and has been compliant with them the past 3 days. Given risk of sedation and his ongoing poor energy/motivation, I will decrease his diazepam to once daily in the morning. Discussed with his outpatient team that these medications would need to be dispensed daily by staff given his history of benzodiazepine abuse and overdoses. -Patient still appearing depressed, amotivated, irritable, not tending to ADLs, still has not showered despite agreeing to do so. 02/18 - 02/21 continue current meds and treatment plan 02/22 - Continue current treatment plan - Multidisciplinary meeting scheduled for 02/23 via Zoom to coordinate aftercare services - Awaiting confirmation that patient can be seen at [facility] for psychiatric medication management 02/23 -fourth discharge planning meeting home today with outpatient leather case finisher and [facility] staff. Patient will follow up with Dr. Pizarro at [facility], therapist at [facility], and [facility] will attend psychiatric appointments with him. The CRR will have his medications sent in bubble packs from the mail order pharmacy, and will hold all of his meds and dispensed to him daily. He will return to the CRR at discharge, and they will continue exploring options at [facility]. Plan is for discharge 02/29/2020, with follow-up with Dr. Pizarro the following week, but still awaiting confirmed appointment. -We will need to convert back to an outpatient commitment at discharge. (2) Memory changes: 02/09 -patient was seen by neurology in a recent prior admission and had a scheduled neurology outpt appt on 02/02/2020 that he reported not attending out of not feeling it would be beneficial for him. Neurology has also sought neuropsych testing and this has not occurred as of yet and likely not scheduled, will attempt to coordinate this further during this admission. Pt is noted to have multiple risk factors for A recent brain MRI was notable for mild progressive nonspecific foci of increased T2 signal within the white matter, likely on a small vessel basis, but negative for acute intracranial findings, masses, subacute or acute infarction. He is scheduled to follow-up with Dr. Caal. 02/17 - Discussed concerns for cognitive decline with his OP leather case finisher, and that this could be due to schizophrenia, a dementing illness, or the effects of medications, specifically benzodiazepines. He has not been sufficiently psychiatrically stable during the past 6 months to determine how much of his cognitive impairment is due to his thought disorder. This will require ongoing monitoring and assessment. There is not sufficient evidence at this time to make a diagnosis of dementia. (3) Tobacco use disorder: 02/09 - pt expressed desire for nicotine patch 21mg a day but then refused when nurses offered it to him, pt refused nicotinate gum offered, pt expressed some interested in quitting smoking but is too psychotic to engage in smoking cessation at this time and will perform once more appropriate to do so 02/10 - been refusing nicotine patch to date, will continue to have offer at this time 02/17 -patient has consistently refused the patch, so we will discontinue it. Risk Factors Assessment Male: Yes : Yes Do You Have Access To A Gun?: No Health Problems: Yes Mental Health Diagnoses: Yes Substance Use Disorders: Yes Previous Attempt: Yes Previous Attempt; Highly Lethal: Yes Previous Psychiatric Hospitalization: Yes Hopelessness: No Smoker: Yes Protective Factors Assessment : No Employed: No Stable Relationships: No Good Rapport with Provider: No Interval History Identifying Information SCOTT ROBERTO is a 74-year-old M who currently lives in in a CRR in [place], has a history of schizophrenia, and was admitted on 02/09/20 21:03 on a 302 involuntary commitment with an active 305 involuntary outpatient commitment for inability to take care of self and disorganized behaviors. Chief Complaint "OK". Review of Systems Sleep Information Total Hours of Sleep: 6.5 Sleep Comments: awakened for vital signs around 0620 Meal Information Percent Meal Consumed - Breakfast: 100 Percent Meal Consumed - Lunch: 90 Percent Meal Consumed - Dinner: 100 Subjective Subjective Patient was seen & assessed and interval progress reviewed with treatment team. Staff report he continues to isolate in his room, attends only morning and evening community meetings, refusing all other groups, but is taking medications as prescribed and stating willingness to return to the CRR at discharge. He had his fourth discharge planning meeting today with the hospital family welfare social work professor, myself, his outpatient leather case finisher, and [facility] staff, but he only stayed for several minutes and then left, stating he did not want to participate. Outpatient treatment plan was discussed, and he has been accepted at [facility] and will see Dr. Pizarro, as well as a therapist there. The CRR is recommending that his medications be sent through the mail order pharmacy, and they will hold meds and dispense them as prescribed, in order to decrease the risk of noncompliance or misuse of medications, which have been ongoing problems for him. His leather case finisher will attend outpatient psychiatric appointments with him as part of his involuntary outpatient commitment. Reviewed his current status and estimated length of stay; was CRR requested discharge on Saturday, as they are unable to get his medications on weekends. I met with the patient and reviewed this plan, and he expressed agreement. Physical Exam Psychiatric Orientation: alert and cooperative (Partially, left meeting abruptly) Apperance: appropriately dressed, appropriately groomed and appeared stated age Eye Contact: good eye contact Motor Behavior: steady gait and station and no abnormal motor movements Speech: normal rate/rhythm/volume of speech Minimal Affect: + blunted affect Okay Thought Process: goal directed thought process Thought Content: reality based without delusions Suicidal Thoughts: denies suicidal thoughts Homicidal Thoughts: denies homicidal thoughts Hallucinations: no auditory hallucinations Insight: + impaired insight Judgement: + impaired judgement Vital Signs (Past 24 Hours) Last Vital Signs Temp 36.6 C 02/24/20 06:45 Pulse 68 02/24/20 06:45 Resp 18 02/24/20 06:45 BP 121/78 02/24/20 06:45 Pulse Ox 97 02/09/20 21:18 Results & Data (U) Current Inpatient Medications Current Inpatient Medications: Current Inpatient Medications Acetaminophen (Tylenol) 650 mg PO Q4H PRN PRN Reason: Headache or Minor Fever Stop: 03/10/20 20:58 Al Hydrox/Mg Hydrox/Simethicone (Maalox) 30 ml PO Q4H PRN PRN Reason: GI Upset Stop: 03/10/20 20:58 Aripiprazole (Abilify) 10 mg PO QAM MAG Stop: 03/16/20 10:29 Last Admin: 02/24/20 09:52 Dose: 10 mg Documented by: Benztropine Mesylate (Cogentin) 0.5 mg PO BID PRN PRN Reason: akasthesia Stop: 03/11/20 10:45 Bismuth Subsalicylate (Kaopectate) 15 ml PO PRN PRN PRN Reason: Loose Stool Stop: 03/10/20 20:58 Diazepam (Valium) 5 mg PO QAM MAG Stop: 03/20/20 08:59 Last Admin: 02/24/20 09:52 Dose: 5 mg Documented by: Docusate Sodium (Colace) 100 mg PO BID PRN PRN Reason: Constipation Stop: 03/11/20 20:59 Hydroxyzine HCl (Vistaril) 50 mg PO HSZ PRN PRN Reason: Insomnia Stop: 03/10/20 20:58 Hydroxyzine HCl (Vistaril) 25 mg PO Q4H PRN PRN Reason: Anxiety Stop: 03/10/20 20:58 Magnesium Hydroxide (Milk Of Magnesia) 30 ml PO DAILY PRN PRN Reason: Constipation Stop: 03/10/20 20:58 Melatonin (Melatonin) 10 mg PO HS PRN PRN Reason: Sleep Stop: 03/10/20 21:07 Sodium Chloride (Curtiss Nasal) 1 - 2 sprays NA PRN PRN PRN Reason: Nasal Dryness/Congestion Stop: 03/10/20 20:58 Temazepam (Restoril) 7.5 mg PO HSZ MAG Stop: 03/10/20 21:59 Last Admin: 02/23/20 20:57 Dose: 7.5 mg Documented by: Mental Health & Subst Abuse Tx Psychiatrist Name of Psychiatrist: Aleksandra Psych[facility] [id number] [facility] [place] [facility] Name of Therapist: Aleksandra Therapist's Therapy Appointment Comment: [id number] [facility] [place] First Line Production Supervisor Name of First Line Production Supervisor: Shruti Mcbride Phone Number for First Line Production Supervisor: [phone] Case Management Appointment Comment: Will come see you Post Discharge Appointments Primary Care Physician Name Of Family Doctor: [facility] - Dr. Jeff Lopez Primary Care Provider Appointment Comment: [address], [address], [place] [address] Contact Information Discharge Discharge Address: [address] [facility] [address] [facility], [place] [address] (1) Schizophrenia Schizophrenia type: unspecified Qualified Code(s): F20.9 - Schizophrenia, unspecified
[2020-02-24] MEDS: TEMAZEPAM 7.5 MG CAPSULE PO SCH (20:58)
[2020-02-25] MEDS: diazePAM 5 MG TABLET PO SCH (09:00)
[2020-02-25] MEDS: ARIPiprazole 10 MG TAB PO SCH (09:00)
--- NOTE | 2020-02-25 09:50 | Psychiatric Progress Note ---
Date of Service February 25, 2020 Impression / Recommendations Impression Patient is well-known to us as this is his fifth hospitalization in the past 6 months. He has schizophrenia, with chronic noncompliance, leading to an involuntary outpatient commitment (on a 305). He was initially refusing medications, but has now resumed the regimen that was effective during his last 2 hospitalizations (aripiprazole, diazepam, and temazepam). We are encouraging him to consider Abilify Maintena, though he is declining. He remains somewhat depressed, irritable, and isolative, but is improving slowly. We have engaged his extensive outpatient supports in discharge planning, having now had for discharge planning meetings to coordinate services. They are working on transitioning him from the [facility] to [facility], transitioning him to psychiatric care at [facility], and trying to minimize some of the medication errors/difficulties he has been experiencing when he transitions from inpatient to outpatient treatment. Although he is eating better and medication compliance has improved, he still has not showered, is not consistently attending or participating in groups, and remains at risk for suicide if discharged prematurely. Plan is for discharge to the CRR on Saturday, 02/28. (1) Schizophrenia: 02/09 -resume medication regimen he was on at the time of discharge 1 month ago, along with adding prn benztropine and prn Colace for potential s/e to his medications -Pt indicating willing to sign ROIs for his treatment providers and placement -individual therapy and as appropriate group therapy -coordinate with outpt providers and attempt to help coordinate treatment plan given tendency of changes of medication plan at f/u psychiatric appt occurring after discharge in pt compared to discharge medications. 02/10 - continue medication unchanged for now with aim to convert to FARAH form of Abilify if pt will consent, consideration of risks and benefits of Valium dosage to remain as rx'd over time given pt's past usage of those medications and complexity of this case mikey memory concerns and therapeutic alliance aspects that have a complex push and pull of the benefits and risks of this class of medications in complex ways 305 to 306 invol inpt conversion granted this morning (02/10) treatment team meeting with the various people involved in pt's care (outpt and inpt) to address various concerns including medication compliance, behavioral issues of pt, tensions between pt and CRR staff, struggles to avoid decompensation in first weeks after discharge from the hospital, and apparent lack of continuance of inpt discharge medication plan after transition followup outpt psychiatric appointments recently. 02/11 - Continue current medication regimen, consider ongoing discussion regarding potential for conversion to an FARAH - Pt has been compliant with medications, but has not showered and is still limited in his attendance to ADLs - Meeting today with multi-disciplinary treatment team to discuss discharge and future treatment recommendations. Representation from [facility], [facility], and the [facility] were present. 02/12 -Continue medication regimen unchanged. Encouraging consistent compliance. -Another meeting being scheduled for Saturday for multidisciplinary treatment team 02/13 -Continues to appear more apathetic this admission. -Multidisciplinary meeting planned for Wednesday 02/14 - Continue to encourage consistency with his current medication regimen - Aripiprazole adjusted to qAM dosing to encourage opportunity to accept the medication - re-evaluate willingness for FARAH administration when patient is appropriate for this conversation - Multidisciplinary meeting today 02/15 - Continue current medication regimen - patient has been more consistent with medication regimen the past 2 days - Continue to assess willingness for an FARAH when patient becomes more agreeable - Pt is permitted to return to the CRR on discharge, which is his expressed desire as well. Plan is for future transition to a personal [place] health care facility within 02/16 - Continue current medication regimen - explore willingness for FARAH - Multidisciplinary discharge planning meeting update for tomorrow - Pt continues to verbalize desire for discharge back to the CRR - pt did indicate desire to shave and shower today, but has yet to take steps to complete these tasks 02/17 -Third discharge planning meeting held today with Shruti Guadalupe case management and fashion supervisor, [facility] staff, director social, and Dr. Campos. Patient declined to attend. We will attempt to get him to sign a release for [facility], and Tisha may come and talk with him if he is willing. The plan is for him to return to the CRR in the interim, but to transition to [facility] in the near future. We are also working on transitioning him to Dr. Pizarro at [facility], who will review records and has been invited to contact me if he has any ques tions. -Patient's case assembler indicates he is often resistant to the case assembler attending psychiatric appointments with him, and would like this to be specified on the involuntary outpatient commitment plan. -Contacted [facility]'s [facility] ([facility] to cancel all of his previous refills from Dr. Alves, as this was causing significant confusion and he was filling old, discontinued medications as there was still refills left at the pharmacy. -Continue aripiprazole 10 mg every morning; patient's compliance has improved and he has taken it the past 4 days. Has still not agreed to an FARAH, but will continue to encourage transition to Maintena to improve compliance. Fasting labs were last done in 02/2019, so will order for tomorrow for monitoring on an atypical. -He was continued on home doses of temazepam 7.5 mg at bedtime and diazepam 5 mg twice daily, and has been compliant with them the past 3 days. Given risk of sedation and his ongoing poor energy/motivation, I will decrease his diazepam to once daily in the morning. Discussed with his outpatient team that these medications would need to be dispensed daily by staff given his history of benzodiazepine abuse and overdoses. -Patient still appearing depressed, amotivated, irritable, not tending to ADLs, still has not showered despite agreeing to do so. 02/18 - 02/21 continue current meds and treatment plan 02/22 - Continue current treatment plan - Multidisciplinary meeting scheduled for 02/23 via Zoom to coordinate aftercare services - Awaiting confirmation that patient can be seen at [facility] for psychiatric medication management 02/23 -fourth discharge planning meeting home today with outpatient case assembler and [facility] staff. Patient will follow up with Dr. Pizarro at [facility], therapist at [facility], and [facility] will attend psychiatric appointments with him. The CRR will have his medications sent in bubble packs from the mail order pharmacy, and will hold all of his meds and dispensed to him daily. He will return to the CRR at discharge, and they will continue exploring options at [facility]. Plan is for discharge 02/29/2020, with follow-up with Dr. Pizarro the following week, but still awaiting confirmed appointment. -We will need to convert back to an outpatient commitment at discharge. 02/24 - Continue current treatment plan - pt continues to be agreeable with plan for discharge 02/28 - Awaiting confirmation of outpatient psychiatric appointments - plan is for follow-up at [facility] - Pt did consent to Abilify Maintena injection after review of risks, benefits, and potential side effects. Pt received 300mg IM injection - due for next injection 03/24/2020. Continue oral aripiprazole for 14 days. - Tolerating discontinuation of private room (2) Memory changes: 02/09 -patient was seen by neurology in a recent prior admission and had a scheduled neurology outpt appt on 02/02/2020 that he reported not attending out of not feeling it would be beneficial for him. Neurology has also sought neuropsych testing and this has not occurred as of yet and likely not scheduled, will attempt to coordinate this further during this admission. Pt is noted to have multiple risk factors for A recent brain MRI was notable for mild progressive nonspecific foci of increased T2 signal within the white matter, likely on a small vessel basis, but negative for acute intracranial findings, masses, subacute or acute infarction. He is scheduled to follow-up with Dr. Caal. 02/17 - Discussed concerns for cognitive decline with his OP case assembler, and that this could be due to schizophrenia, a dementing illness, or the effects of medications, specifically benzodiazepines. He has not been sufficiently psychiatrically stable during the past 6 months to determine how much of his cognitive impairment is due to his thought disorder. This will require ongoing monitoring and assessment. There is not sufficient evidence at this time to make a diagnosis of dementia. 02/24 - Recommend continued outpatient neurology follow-up (3) Tobacco use disorder: 02/09 - pt expressed desire for nicotine patch 21mg a day but then refused when nurses offered it to him, pt refused nicotinate gum offered, pt expressed some interested in quitting smoking but is too psychotic to engage in smoking cessation at this time and will perform once more appropriate to do so 02/10 - been refusing nicotine patch to date, will continue to have offer at this time 02/17 -patient has consistently refused the patch, so we will discontinue it. Risk Factors Assessment Male: Yes : Yes Do You Have Access To A Gun?: No Health Problems: Yes Mental Health Diagnoses: Yes Substance Use Disorders: Yes Previous Attempt: Yes Previous Attempt; Highly Lethal: Yes Previous Psychiatric Hospitalization: Yes Hopelessness: No Smoker: Yes Protective Factors Assessment : No Employed: No Stable Relationships: No Good Rapport with Provider: No Interval History Identifying Information SCOTT ROBERTO is a 74-year-old M who currently lives in in a CRR in [place], has a history of schizophrenia, and was admitted on 02/09/20 21:03 on a 302 involuntary commitment with an active 305 involuntary outpatient commitment for inability to take care of self and disorganized behaviors. Chief Complaint "Ok. Things are fine." Review of Systems Notes Constitutional: denied Cardiovascular: denied Respiratory: denied Gastrointestinal: denied Neurological: denied Psychiatric: denies symptoms other than stated above Total of at least 10 systems reviewed, pertinent positives as above and in HPI. Sleep Information Total Hours of Sleep: 6.5 Sleep Comments: awakened for vital signs around 0620 Meal Information Percent Meal Consumed - Breakfast: 100 Percent Meal Consumed - Lunch: 90 Percent Meal Consumed - Dinner: 100 Subjective Subjective Patient was seen & assessed and interval progress reviewed with nursing and social work. Staff report the patient has maintained appropriate behavior. Multidisciplinary discharge planning meeting was conducted yesterday, plan is for discharge back to the CRR on Wednesday 02/28, with further exploration of transfer to a personal [place] health care facility after he returns to the CRR. Pt was seen today to assess progress since admission. Pt states he is feeling "ok" today, and denies any acute needs or concerns. He initially reported that he did not attend the discharge planning meeting yesterday, but then corrects himself and admits that he did attend the beginning of the meeting. He denies any concerns related to returning to the CRR and is agreeable with discharge Saturday. He continues to deny SI/HI as well as any concerning auditory hallucinations. Pt was offered a refill of his coffee. Later in the afternoon, the patient was approached to explore his willingness for Abilify Maintena. Fortunately, p archie did say "yeah, lets do it." Risks, benefits, and potential side effects were discussed and patient continued to verbalize agreement with receiving the injection today. Physical Exam Psychiatric Orientation: alert and cooperative Apperance: appropriately dressed (casually in jeans and long-sleeve t-shirt - but same outfit since admission) and + disheveled (still unshaven and unshowered) Eye Contact: good eye contact Motor Behavior: no abnormal motor movements Speech: normal rate/rhythm/volume of speech (monotone) Affect: + blunted affect Mood: no depressed mood ("ok") Thought Process: clear/coherent thought process and + concrete thought process Thought Content: not paranoid and no delusions Suicidal Thoughts: denies suicidal thoughts, denies suicidal plan and denies suicidal intent Homicidal Thoughts: denies homicidal thoughts Hallucinations: no auditory hallucinations and no visual hallucinations Cognition: attention grossly intact and language grossly intact Insight: + impaired insight Judgement: + impaired judgement Vital Signs (Past 24 Hours) Last Vital Signs Temp 36.4 C L 02/25/20 06:53 Pulse 73 02/25/20 06:53 Resp 18 02/25/20 06:53 BP 121/76 02/25/20 06:53 Pulse Ox 97 02/09/20 21:18 Results & Data ([facility]) Current Inpatient Medications Current Inpatient Medications: Current Inpatient Medications Acetaminophen (Tylenol) 650 mg PO Q4H PRN PRN Reason: Headache or Minor Fever Stop: 03/10/20 20:58 Al Hydrox/Mg Hydrox/Simethicone (Maalox) 30 ml PO Q4H PRN PRN Reason: GI Upset Stop: 03/10/20 20:58 Aripiprazole (Abilify) 10 mg PO [facility] Stop: 03/16/20 10:29 Last Admin: 02/25/20 09:00 Dose: 10 mg Documented by: Benztropine Mesylate (Cogentin) 0.5 mg PO BID PRN PRN Reason: akasthesia Stop: 03/11/20 10:45 Bismuth Subsalicylate (Kaopectate) 15 ml PO PRN PRN PRN Reason: Loose Stool Stop: 03/10/20 20:58 Diazepam (Valium) 5 mg PO [facility] Stop: 03/20/20 08:59 Last Admin: 02/25/20 09:00 Dose: 5 mg Documented by: Docusate Sodium (Colace) 100 mg PO BID PRN PRN Reason: Constipation Stop: 03/11/20 20:59 Hydroxyzine HCl (Vistaril) 50 mg PO HSZ PRN PRN Reason: Insomnia Stop: 03/10/20 20:58 Hydroxyzine HCl (Vistaril) 25 mg PO Q4H PRN PRN Reason: Anxiety Stop: 03/10/20 20:58 Magnesium Hydroxide (Milk Of Magnesia) 30 ml PO DAILY PRN PRN Reason: Constipation Stop: 03/10/20 20:58 Melatonin (Melatonin) 10 mg PO HS PRN PRN Reason: Sleep Stop: 03/10/20 21:07 Sodium Chloride (Jerome Nasal) 1 - 2 sprays NA PRN PRN PRN Reason: Nasal Dryness/Congestion Stop: 03/10/20 20:58 Temazepam (Restoril) 7.5 mg PO HSZ MAG Stop: 03/10/20 21:59 Last Admin: 02/24/20 20:58 Dose: 7.5 mg Documented by: Mental Health & Subst Abuse Tx Psychiatrist Name of Psychiatrist: Aleksandra Psychiatrist's Psychiatric Appointment Comment: [id number] [place] Therapist Name of Therapist: Aleksandra Therapist's Therapy Appointment Comment: [id number] [place] Tinning Equipment Tender Name of Tinning Equipment Tender: Shruti Mcbride Phone Number for Tinning Equipment Tender: [phone] Case Management Appointment Comment: Will come see you Post Discharge Appointments Primary Care Physician Name Of Family Doctor: [facility] - Dr. Jeff Lopez Primary Care Provider Appointment Comment: [address], [address] [facility], [place] [address] Contact Information Discharge Discharge Address: [address] [place] [address], [place] [address] (1) Schizophrenia Schizophrenia type: unspecified Qualified Code(s): F20.9 - Schizophrenia, unspecified
[2020-02-25] MEDS ORDERED: ARIPIPRAZOLE 400 MG KIT IM STA (12:08)
[2020-02-25] MEDS: TEMAZEPAM 7.5 MG CAPSULE PO SCH (21:06)
[2020-02-26] MEDS: ARIPiprazole 10 MG TAB PO SCH (08:43)
[2020-02-26] MEDS: diazePAM 5 MG TABLET PO SCH (08:43)
--- NOTE | 2020-02-26 09:11 | Psychiatric Progress Note ---
Date of Service February 26, 2020 Impression / Recommendations Impression Patient is well-known to us as this is his fifth hospitalization in the past 6 months. He has schizophrenia, with chronic noncompliance, leading to an involuntary outpatient commitment (on a 305). He was initially refusing medications, but has now resumed the regimen that was effective during his last 2 hospitalizations (aripiprazole, diazepam, and temazepam). Pt has been encouraged to consider Abilify Maintena for the last 2 admissions, and on 02/24 he accepted an initial dose of 300mg IM. He will be due for his next injection on 03/24/2020. He remains somewhat isolative, but is improving slowly. Pt has req uested to shave, but is still not showered. As he is maintaining adequate hygiene otherwise, this has not been a focus of treatment. We have engaged his extensive outpatient supports in discharge planning, having had four discharge planning meetings to coordinate services. They are working on transitioning him from the [facility] to [facility], transitioning him to psychiatric care at [facility], and trying to minimize some of the medication errors/difficulties he has been experiencing when he transitions from inpatient to outpatient treatment. Plan is for discharge to the [facility] on Saturday, 02/28. (1) Schizophrenia: 02/09 -resume medication regimen he was on at the time of discharge 1 month ago, along with adding prn benztropine and prn Colace for potential s/e to his medications -Pt indicating willing to sign ROIs for his treatment providers and placement -individual therapy and as appropriate group therapy -coordinate with outpt providers and attempt to help coordinate treatment plan given tendency of changes of medication plan at f/u psychiatric appt occurring after discharge in pt compared to discharge medications. 02/10 - continue medication unchanged for now with aim to convert to FARAH form of Abilify if pt will consent, consideration of risks and benefits of Valium dosage to remain as rx'd over time given pt's past usage of those medications and complexity of this case mikey memory concerns and therapeutic alliance aspects that have a complex push and pull of the benefits and risks of this class of medications in complex ways 305 to 306 invol inpt conversion granted this morning (02/10) treatment team meeting with the various people involved in pt's care (outpt and inpt) to address various concerns including medication compliance, behavioral issues of pt, tensions between pt and CRR staff, struggles to avoid decompensation in first weeks after discharge from the hospital, and apparent lack of continuance of inpt discharge medication plan after transition followup outpt psychiatric appointments recently. 02/11 - Continue current medication regimen, consider ongoing discussion regarding potential for conversion to an FARAH - Pt has been compliant with medications, but has not showered and is still limited in his attendance to ADLs - Meeting today with multi-disciplinary treatment team to discuss discharge and future treatment recommendations. Representation from [facility], [facility] Guadal[facility], and [facility] were present. 02/12 -Continue medication regimen unchanged. Encouraging consistent compliance. -Another meeting being scheduled for Saturday for multidisciplinary treatment team 02/13 -Continues to appear more apathetic this admission. -Multidisciplinary meeting planned for Wednesday 02/14 - Continue to encourage consistency with his current medication regimen - Aripiprazole adjusted to qAM dosing to encourage opportunity to accept the medication - re-evaluate willingness for FARAH administration when patient is appropriate for this conversation - Multidisciplinary meeting today 02/15 - Continue current medication regimen - patient has been more consistent with medication regimen the past 2 days - Continue to assess willingness for an FARAH when patient becomes more agreeable - Pt is permitted to return to the CRR on discharge, which is his expressed desire as well. Plan is for future transition to a personal long-term within 02/16 - Continue current medication regimen - explore willingness for FARAH - Multidisciplinary discharge planning meeting update for tomorrow - Pt continues to verbalize desire for discharge back to the CR[facility] - pt did indicate desire to shave and shower today, but has yet to take steps to complete these tasks 02/17 -Third discharge planning meeting held today with Shruti Guadalupe case management and supervisor sleeping bag department, [facility] staff, high school social studies teacher, and Dr. Campos. Patient declined to attend. We will attempt to get him to sign a release for [place] [facility], and Tisha may come and talk with him if he is willing. The plan is for him to return to the [facility] in the interim, but to transition to [facility] in the near future. We are also working on transitioning him to Dr. Pizarro at [facility], who will review records and has been invited to contact me if he has any questions. -Patient's correctional counselor/case manager indicates he is often resistant to the correctional counselor/case manager attending psychiatric appointments with him, and would like this to be specified on the involuntary outpatient commitment plan. -Contacted patient's pharmacy ([facility]) to cancel all of his previous refills from Dr. Alves, as this was causing significant confusion and he was filling old, discontinued medications as there was still refills left at the pharmacy. -Continue aripiprazole 10 mg every morning; patient's compliance has improved and he has taken it the past 4 days. Has still not agreed to an FARAH, but will continue to encourage transition to [facility] to improve compliance. Fasting labs were last done in 02/2019, so will order for tomorrow for monitoring on an atypical. -He was continued on home doses of temazepam 7.5 mg at bedtime and diazepam 5 mg twice daily, and has been compliant with them the past 3 days. Given risk of sedation and his ongoing poor energy/motivation, I will decrease his diazepam to once daily in the morning. Discussed with his outpatient team that these medications would need to be dispensed daily by staff given his history of benzodiazepine abuse and overdoses. -Patient still appearing depressed, amotivated, irritable, not tending to ADLs, still has not showered despite agreeing to do so. 02/18 - 02/21 continue current meds and treatment plan 02/22 - Continue current treatment plan - Multidisciplinary meeting scheduled for 02/23 via Zoom to coordinate aftercare services - Awaiting confirmation that patient can be seen at [facility] for psychiatric medication management 02/23 -fourth discharge planning meeting home today with outpatient correctional counselor/case manager and [facility] staff. Patient will follow up with Dr. Pizarro at [facility], therapist at [facility], and [facility] will attend psychiatric appointments with him. The [facility]R will have his medications sent in bubble packs from the mail order pharmacy, and will hold all of his meds and dispensed to him daily. He will return to the [facility] at discharge, and they will continue exploring options at [facility]. Plan is for discharge 02/29/2020, with follow-up with Dr. Pizarro the following week, but still awaiting confirmed appointment. -We will need to convert back to an outpatient commitment at discharge. 02/24 - Continue current treatment plan - pt continues to be agreeable with plan for discharge 02/28 - Awaiting confirmation of outpatient psychiatric appointments - plan is for follow-up at [facility] - Pt did consent to Abilify Maintena injection after review of risks, benefits, and potential side effects. Pt received 300mg IM injection - due for next injection 03/24/2020. Continue oral aripiprazole for 14 days. - Tolerating discontinuation of private room 02/25 - Continue current medication regimen - Pt received initial injection of Abilify Maintena (lower dose of 300mg IM was ordered to to risk associated with age, recent cognitive changes, and that he was only receiving an oral dose of 10mg). Pt aware that he will continue with oral supplementation for 2-weeks. - Continue diazepam 5mg qAM and temazepam 7.5mg qHS - Plan is for discharge to the CRR on 02/28 - Outpatient appointments scheduled with Aleksandra (2) Memory changes: 02/09 -patient was seen by neurology in a recent prior admission and had a scheduled neurology outpt appt on 02/02/2020 that he reported not attending out of not feeling it would be beneficial for him. Neurology has also sought neuropsych testing and this has not occurred as of yet and likely not scheduled, will attempt to coordinate this further during this admission. Pt is noted to have multiple risk factors for A recent brain MRI was notable for mild progressive nonspecific foci of increased T2 signal within the white matter, likely on a small vessel basis, but negative for acute intracranial findings, masses, subacute or acute infarction. He is scheduled to follow-up with Dr. Caal. 02/17 - Discussed concerns for cognitive decline with his OP correctional counselor/case manager, and that this could be due to schizophrenia, a dementing illness, or the effects of medications, specifically benzodiazepines. He has not been sufficiently psychiatrically stable during the past 6 months to determine how much of his cognitive impairment is due to his thought disorder. This will require ongoing monitoring and assessment. There is not sufficient evidence at this time to make a diagnosis of dementia. 02/24 - Recommend continued outpatient neurology follow-up (3) Tobacco use disorder: 02/09 - pt expressed desire for nicotine patch 21mg a day but then refused when nurses offered it to him, pt refused nicotinate gum offered, pt expressed some interested in quitting smoking but is too psychotic to engage in smoking cessation at this time and will perform once more appropriate to do so 02/10 - been refusing nicotine patch to date, will continue to have offer at this time 02/17 -patient has consistently refused the patch, so we will discontinue it. Risk Factors Assessment Male: Yes : Yes Do You Have Access To A Gun?: No Health Problems: Yes Mental Health Diagnoses: Yes Substance Use Disorders: Yes Previous Attempt: Yes Previous Attempt; Highly Lethal: Yes Previous Psychiatric Hospitalization: Yes Hopelessness: No Smoker: Yes Protective Factors Assessment : No Employed: No Stable Relationships: No Good Rapport with Provider: No Interval History Identifying Information SCOTT ROBERTO is a 74-year-old M who currently lives in in a CRR in [place], has a history of schizophrenia, and was admitted on 02/09/20 21:03 on a 302 involuntary commitment with an active 305 involuntary outpatient commitment for inability to take care of self and disorganized behaviors. Chief Complaint "Ok." Review of Systems Notes Constitutional: denied Cardiovascular: denied Respiratory: denied Gastrointestinal: denied Neurological: denied Psychiatric: denies symptoms other than stated above Total of at least 10 systems reviewed, pertinent positives as above and in HPI. Sleep Information Total Hours of Sleep: 8 Sleep Comments: awakened for vital signs around 0620 Meal Information Percent Meal Consumed - Breakfast: 100 Percent Meal Consumed - Lunch: 100 Percent Meal Consumed - Dinner: 100 Subjective Subjective Patient was seen & assessed and interval progress reviewed with treatment team. Staff report the patient has maintained appropriate behavioral control, and discharge planning is being coordinated for discharge date of 02/28. It was passed along that patient has been hearing voices telling him something bad will happen if he showers, therefore he is only shaving at this time. Pt did receive Abilify Maintena yesterday without reported incident. Pt was seen today to assess progress since admission. Pt states he is "ok" and denies other concerns at this time. He states he has been doing well, denying any issues with his mood, suicidality, or distressing hallucinations. Pt did admit to ongoing auditory hallucinations, but declined to discuss the themes at this time. He denied requiring assistance with any tasks in the next few days, and continues to be agreeable with discharge back to the CRR on Saturday. He denies any needs at this time. Physical Exam Psychiatric Orientation: alert and cooperative Apperance: appropriately dressed and appropriately groomed (still not showering, but shaved and not malodorous ) Eye Contact: good eye contact Motor Behavior: steady gait and station and no abnormal motor movements Speech: normal rate/rhythm/volume of speech Affect: + blunted affect (which is rather typical from past hospitalizations as well) Mood: no depressed mood ("Ok") Thought Process: goal directed thought process and + concrete thought process Thought Content: not paranoid, no delusions (does not verbalize any delusional thought content) and no hopelessness Suicidal Thoughts: denies suicidal thoughts, denies suicidal plan and denies suicidal intent Homicidal Thoughts: denies homicidal thoughts Hallucinations: + auditory hallucinations (not distressing per patient, but he is unwilling to discuss in detail); no visual hallucinations Cognition: attention grossly intact and language grossly intact Insight: + limited insight (chronically limited) Judgement: + limited judgement (chronically limited) Vital Signs (Past 24 Hours) Last Vital Signs Temp 36.3 C L 02/26/20 07:07 Pulse 65 02/26/20 07:07 Resp 18 02/26/20 07:07 BP 119/77 02/26/20 07:07 Pulse Ox 97 02/09/20 21:18 Results & Data ([facility]) Current Inpatient Medications Current Inpatient Medications: Current Inpatient Medications Acetaminophen (Tylenol) 650 mg PO Q4H PRN PRN Reason: Headache or Minor Fever Stop: 03/10/20 20:58 Al Hydrox/Mg Hydrox/Simethicone (Maalox) 30 ml PO Q4H PRN PRN Reason: GI Upset Stop: 03/10/20 20:58 Aripiprazole (Abilify) 10 mg PO [facility] Stop: 03/16/20 10:29 Last Admin: 02/26/20 08:43 Dose: 10 mg Documented by: Benztropine Mesylate (Cogentin) 0.5 mg PO BID PRN PRN Reason: akasthesia Stop: 03/11/20 10:45 Bismuth Subsalicylate (Kaopectate) 15 ml PO PRN PRN PRN Reason: Loose Stool Stop: 03/10/20 20:58 Diazepam (Valium) [facility] [place] Stop: 03/20/20 08:59 Last Admin: 02/26/20 08:43 Dose: 5 mg Documented by: Docusate Sodium (Colace) 100 mg PO BID PRN PRN Reason: Constipation Stop: 03/11/20 20:59 Hydroxyzine HCl (Vistaril) 50 mg PO HSZ PRN PRN Reason: Insomnia Stop: 03/10/20 20:58 Hydroxyzine HCl (Vistaril) 25 mg PO Q4H PRN PRN Reason: Anxiety Stop: 03/10/20 20:58 Magnesium Hydroxide (Milk Of Magnesia) 30 ml PO DAILY PRN PRN Reason: Constipation Stop: 03/10/20 20:58 Melatonin (Melatonin) 10 mg PO HS PRN PRN Reason: Sleep Stop: 03/10/20 21:07 Sodium Chloride ([place] Nasal) 1 - 2 sprays NA PRN PRN PRN Reason: Nasal Dryness/Congestion Stop: 03/10/20 20:58 Temazepam (Restoril) 7.5 mg PO HSZ MAG Stop: 03/10/20 21:59 Last Admin: 02/25/20 21:06 Dose: 7.5 mg Documented by: Mental Health & Subst Abuse Tx Psychiatrist Name of Psychiatrist: Aleksandra Psychiatrist's Date of Appointment with Psychiatrist: 03/07/20 Psychiatric Appointment Comment: [id number] [place] Merline Gandara PA Therapist Name of Therapist: Aleksandra Therapist's Date of Therapist Appointment: 03/07/20 Therapy Appointment Comment: [id number] [facility] Merline Gandara PA Marine Mechanic Name of Marine Mechanic: Shruti Mcbride Phone Number for Marine Mechanic: [phone] Case Management Appointment Comment: Will come see you Post Discharge Appointments Primary Care Physician Name Of Family Doctor: [facility] - Dr. Jeff Lopez Primary Care Provider Appointment Comment: [address], [place] [id number], [place] [address] Contact Information Discharge Discharge Address: [address] [place] [address], [place] [address] (1) Schizophrenia Schizophrenia type: unspecified Qualified Code(s): F20.9 - Schizophrenia, unspecified
[2020-02-26] MEDS: TEMAZEPAM 7.5 MG CAPSULE PO SCH (21:24)
[2020-02-27] MEDS: diazePAM 5 MG TABLET PO SCH (08:04)
[2020-02-27] MEDS: ARIPiprazole 10 MG TAB PO SCH (08:04)
--- NOTE | 2020-02-27 11:25 | Psychiatric Progress Note ---
Date of Service February 27, 2020 Impression / Recommendations Impression Patient is well-known to us as this is his fifth hospitalization in the past 6 months. He has schizophrenia, with chronic noncompliance, leading to an involuntary outpatient commitment (on a 305). He was initially refusing medications, but has now resumed the regimen that was effective during his last 2 hospitalizations (aripiprazole, diazepam, and temazepam). Pt has been encouraged to consider Abilify Maintena for the last 2 admissions, and on 02/24 he accepted an initial dose of 300mg IM. He will be due for his next injection on 03/24/2020. He remains somewhat isolative, but is improving slowly. Pt has req uested to shave, but is still not showered. As he is maintaining adequate hygiene otherwise, this has not been a focus of treatment. We have engaged his extensive outpatient supports in discharge planning, having had four discharge planning meetings to coordinate services. They are working on transitioning him from the [facility] to [facility], transitioning him to psychiatric care at [facility], and trying to minimize some of the medication errors/difficulties he has been experiencing when he transitions from inpatient to outpatient treatment. Plan is for discharge to the [facility] on Saturday, 02/28. (1) Schizophrenia: 02/09 -resume medication regimen he was on at the time of discharge 1 month ago, along with adding prn benztropine and prn Colace for potential s/e to his medications -Pt indicating willing to sign ROIs for his treatment providers and placement -individual therapy and as appropriate group therapy -coordinate with outpt providers and attempt to help coordinate treatment plan given tendency of changes of medication plan at f/u psychiatric appt occurring after discharge in pt compared to discharge medications. 02/10 - continue medication unchanged for now with aim to convert to FARAH form of Abilify if pt will consent, consideration of risks and benefits of Valium dosage to remain as rx'd over time given pt's past usage of those medications and complexity of this case mikey memory concerns and therapeutic alliance aspects that have a complex push and pull of the benefits and risks of this class of medications in complex ways 305 to 306 invol inpt conversion granted this morning (02/10) treatment team meeting with the various people involved in pt's care (outpt and inpt) to address various concerns including medication compliance, behavioral issues of pt, tensions between pt and CRR staff, struggles to avoid decompensation in first weeks after discharge from the hospital, and apparent lack of continuance of inpt discharge medication plan after transition followup outpt psychiatric appointments recently. 02/11 - Continue current medication regimen, consider ongoing discussion regarding potential for conversion to an FARAH - Pt has been compliant with medications, but has not showered and is still limited in his attendance to ADLs - Meeting today with multi-disciplinary treatment team to discuss discharge and future treatment recommendations. Representation from [facility], Shruti Guadalupe, and the [facility] were present. 02/12 -Continue medication regimen unchanged. Encouraging consistent compliance. -Another meeting being scheduled for Saturday for multidisciplinary treatment team 02/13 -Continues to appear more apathetic this admission. -Multidisciplinary meeting planned for Wednesday 02/14 - Continue to encourage consistency with his current medication regimen - Aripiprazole adjusted to qAM dosing to encourage opportunity to accept the medication - re-evaluate willingness for FARAH administration when patient is appropriate for this conversation - Multidisciplinary meeting today 02/15 - Continue current medication regimen - patient has been more consistent with medication regimen the past 2 days - Continue to assess willingness for an FARAH when patient becomes more agreeable - Pt is permitted to return to the [facility] on discharge, which is his expressed desire as well. Plan is for future transition to a personal senior living within 02/16 - Continue current medication regimen - explore willingness for FARAH - Multidisciplinary discharge planning meeting update for tomorrow - Pt continues to verbalize desire for discharge back to the [facility] - pt did indicate desire to shave and shower today, but has yet to take steps to complete these tasks 02/17 -Third discharge planning meeting held today with Shruti Guadalupe case management and human resources supervisor, [facility] staff, school social worker, and Dr. Campos. Patient declined to attend. We will attempt to get him to sign a release for [facility], and Tisha may come and talk with him if he is willing. The plan is for him to return to the [facility] in the interim, but to transition to [facility] in the near future. We are also working on transitioning him to Dr. Pizarro at [facility], who will review records and has been invited to contact me if he has any questions. -Patient's case reviewer indicates he is often resistant to the case reviewer attending psychiatric appointments with him, and would like this to be specified on the involuntary outpatient commitment plan. -Contacted patient's pharmacy ([facility]) to cancel all of his previous refills from Dr. Alves, as this was causing significant confusion and he was filling old, discontinued medications as there was still refills left at the pharmacy. -Continue aripiprazole 10 mg every morning; patient's compliance has improved and he has taken it the past 4 days. Has still not agreed to an FARAH, but will continue to encourage transition to [facility] to improve compliance. Fasting labs were last done in 02/2019, so will order for tomorrow for monitoring on an atypical. -He was continued on home doses of temazepam 7.5 mg at bedtime and diazepam 5 mg twice daily, and has been compliant with them the past 3 days. Given risk of sedation and his ongoing poor energy/motivation, I will decrease his diazepam to once daily in the morning. Discussed with his outpatient team that these medications would need to be dispensed daily by staff given his history of benzodiazepine abuse and overdoses. -Patient still appearing depressed, amotivated, irritable, not tending to ADLs, still has not showered despite agreeing to do so. 02/18 - 02/21 continue current meds and treatment plan 02/22 - Continue current treatment plan - Multidisciplinary meeting scheduled for 02/23 via Zoom to coordinate aftercare services - Awaiting confirmation that patient can be seen at [facility] for psychiatric medication management 02/23 -fourth discharge planning meeting home today with outpatient case reviewer and [facility] staff. Patient will follow up with Dr. Pizarro at [facility], therapist at [facility], and [facility] will attend psychiatric appointments with him. The [facility] will have his medications sent in bubble packs from the mail order pharmacy, and will hold all of his meds and dispensed to him daily. He will return to the [facility] at discharge, and they will continue exploring options at [facility]. Plan is for discharge 02/29/2020, with follow-up with Dr. Pizarro the following week, but still awaiting confirmed appointment. -We will need to convert back to an outpatient commitment at discharge. 02/24 - Continue current treatment plan - pt continues to be agreeable with plan for discharge 02/28 - Awaiting confirmation of outpatient psychiatric appointments - plan is for follow-up at [facility] - Pt did consent to Abilify Maintena injection after review of risks, benefits, and potential side effects. Pt received 300mg IM injection - due for next injection 03/24/2020. Continue oral aripiprazole for 14 days. - Tolerating discontinuation of private room 02/25 and 02/26 - Continue current medication regimen - Pt received initial injection of Abilify Maintena (lower dose of 300mg IM was ordered to to risk associated with age, recent cognitive changes, and that he was only receiving an oral dose of 10mg). Pt aware that he will continue with oral supplementation for 2-weeks. - Continue diazepam 5mg qAM and temazepam 7.5mg qHS - Plan is for discharge to the [facility] on 02/28 - Outpatient appointments scheduled with Aleksandra (2) Memory changes: 02/09 -patient was seen by neurology in a recent prior admission and had a scheduled neurology outpt appt on 02/02/2020 that he reported not attending out of not feeling it would be beneficial for him. Neurology has also sought neuropsych testing and this has not occurred as of yet and likely not scheduled, will attempt to coordinate this further during this admission. Pt is noted to have multiple risk factors for A recent brain MRI was notable for mild progressive nonspecific foci of increased T2 signal within the white matter, likely on a small vessel basis, but negative for acute intracranial findings, masses, subacute or acute infarction. He is scheduled to follow-up with Dr. Caal. 02/17 - Discussed concerns for cognitive decline with his OP case reviewer, and that this could be due to schizophrenia, a dementing illness, or the effects of medications, specifically benzodiazepines. He has not been sufficiently psychiatrically stable during the past 6 months to determine how much of his cognitive impairment is due to his thought disorder. This will require ongoing monitoring and assessment. There is not sufficient evidence at this time to make a diagnosis of dementia. 02/24 - Recommend continued outpatient neurology follow-up (3) Tobacco use disorder: 02/09 - pt expressed desire for nicotine patch 21mg a day but then refused when nurses offered it to him, pt refused nicotinate gum offered, pt expressed some interested in quitting smoking but is too psychotic to engage in smoking cessation at this time and will perform once more appropriate to do so 02/10 - been refusing nicotine patch to date, will continue to have offer at this time 02/17 -patient has consistently refused the patch, so we will discontinue it. Risk Factors Assessment Male: Yes : Yes Do You Have Access To A Gun?: No Health Problems: Yes Mental Health Diagnoses: Yes Substance Use Disorders: Yes Previous Attempt: Yes Previous Attempt; Highly Lethal: Yes Previous Psychiatric Hospitalization: Yes Hopelessness: No Smoker: Yes Protective Factors Assessment : No Employed: No Stable Relationships: No Good Rapport with Provider: No Interval History Identifying Information SCOTT ROBERTO is a 74-year-old M who currently lives in in a [facility] in [place], has a history of schizophrenia, and was admitted on 02/09/20 21:03 on a 302 involuntary commitment with an active 305 involuntary outpatient commitment for inability to take care of self and disorganized behaviors. Chief Complaint "[]". Review of Systems Sleep Information Total Hours of Sleep: 7.5 Sleep Comments: awakened for vital signs around 0620 Meal Information Percent Meal Consumed - Breakfast: 100 Percent Meal Consumed - Lunch: 100 Percent Meal Consumed - Dinner: 100 Subjective Subjective Patient was seen & assessed and interval progress reviewed with nursing and social work Patient is on ablify maintenna and is completing his oral dosing overlap of 2 weeks at this time. He did tell therapist 1-2 days ago that he had AH telling him not to shower, but he did shave and is appearing clean and not malordorous, dressing each day hair combed. Patient is sleeping and eating well, attending unit programming. Joey met in his room today, he is pleasant and denies having concerns "mood is good," "not having anxiety," and denies feeling paranoid, denies AVH. He denies physical concerns, "I am looking forward to discharge" and reviewed with patient that we are awaiting his COVID test results which is required prior to return to [facility]. Physical Exam Psychiatric Orientation: alert and oriented x 3 Apperance: appropriately dressed Eye Contact: good eye contact Motor Behavior: steady gait and station Speech: normal rate/rhythm/volume of speech Affect: euthymic affect "okay" Thought Process: goal directed thought process looking forward to goign home, denies psychotic thought content and does not appear to be responding to internal stimuli Suicidal Thoughts: denies suicidal thoughts Homicidal Thoughts: denies homicidal thoughts denies Cognition: recent memory grossly intact and attention grossly intact Estimated Intelligence: average estimated intelligence Insight: + fair insight Judgement: + fair judgement Vital Signs (Past 24 Hours) Last Vital Signs Temp 36.5 C 02/27/20 06:59 Pulse 65 02/27/20 07:01 Resp 16 02/27/20 06:59 BP 113/72 02/27/20 07:01 Pulse Ox 97 02/09/20 21:18 Results & Data ([facility]) Laboratory Results Laboratory Results - last 24 hr 02/26/20 Unknown SARS-CoV-2 RNA (RT-PCR) Pending Current Inpatient Medications Current Inpatient Medications: Current Inpatient Medications Acetaminophen (Tylenol) 650 mg PO Q4H PRN PRN Reason: Headache or Minor Fever Stop: 03/10/20 20:58 Al Hydrox/Mg Hydrox/Simethicone (Maalox) 30 ml PO Q4H PRN PRN Reason: GI Upset Stop: 03/10/20 20:58 Aripiprazole (Abilify) 10 mg PO [facility] Stop: 03/16/20 10:29 Last Admin: 02/27/20 08:04 Dose: 10 mg Documented by: Aripiprazole (Abilify Maintena Kit) 300 mg IM ONE ONE Stop: 03/24/20 09:01 Benztropine Mesylate (Cogentin) 0.5 mg PO BID PRN PRN Reason: akasthesia Stop: 03/11/20 10:45 Bismuth Subsalicylate (Kaopectate) 15 ml PO PRN PRN PRN Reason: Loose Stool Stop: 03/10/20 20:58 Diazepam (Valium) 5 mg PO [facility] Stop: 03/20/20 08:59 Last Admin: 02/27/20 08:04 Dose: 5 mg Documented by: Docusate Sodium (Colace) 100 mg PO BID PRN PRN Reason: Constipation Stop: 03/11/20 20:59 Hydroxyzine HCl (Vistaril) 50 mg PO HSZ PRN PRN Reason: Insomnia Stop: 03/10/20 20:58 Hydroxyzine HCl (Vistaril) 25 mg PO Q4H PRN PRN Reason: Anxiety Stop: 03/10/20 20:58 Magnesium Hydroxide (Milk Of Magnesia) 30 ml PO DAILY PRN PRN Reason: Constipation Stop: 03/10/20 20:58 Melatonin (Melatonin) 10 mg PO HS PRN PRN Reason: Sleep Stop: 03/10/20 21:07 Sodium Chloride ([place] Nasal) 1 - 2 sprays NA PRN PRN PRN Reason: Nasal Dryness/Congestion Stop: 03/10/20 20:58 Temazepam (Restoril) 7.5 mg PO HSZ MAG Stop: 03/10/20 21:59 Last Admin: 02/26/20 21:24 Dose: 7.5 mg Documented by: Mental Health & Subst Abuse Tx Psychiatrist Name of Psychiatrist: Aleksandra Hilliard Psychiatrist's Date of Appointment with Psychiatrist: 03/07/20 Time of Appointment with Psychiatrist: 11:00 a.m. [facility]iatric [facility]ment [id number] Name of Therapist: Aleksandra Hilliard Therapist's Date of Therapist Appointment: 03/07/20 Time of Therapist Appointment: 11:00 a.m. Therapy Appointment [id number] Name of Teaseler: Shruti Mcbride Phone Number for Teaseler: [phone] Case Management Appointment Comment: Will come see you Post Discharge Appointments Primary Care Physician Name Of Family Doctor: [facility] - Dr. Jeff Lopez Primary Care Time of Appointment with PCP: Follow up as needed Provider Appointment Comment: [address], [address] [address] Contact Information Discharge Discharge [address]: [address] [place] [address] (1) Schizophrenia Schizophrenia type: unspecified Qualified Code(s): F20.9 - Schizophrenia, unspecified
[2020-02-27] MEDS: TEMAZEPAM 7.5 MG CAPSULE PO SCH (20:57)
[2020-02-28] MEDS: diazePAM 5 MG TABLET PO SCH (07:52)
[2020-02-28] MEDS: ARIPiprazole 10 MG TAB PO SCH (07:52)
--- NOTE | 2020-02-28 14:37 | Psychiatric Progress Note ---
Date of Service February 28, 2020 Impression / Recommendations Impression Patient is well-known to us as this is his fifth hospitalization in the past 6 months. He has schizophrenia, with chronic noncompliance, leading to an involuntary outpatient commitment (on a 305). He was initially refusing medications, but has now resumed the regimen that was effective during his last 2 hospitalizations (aripiprazole, diazepam, and temazepam). Pt has been encouraged to consider Abilify Maintena for the last 2 admissions, and on 02/24 he accepted an initial dose of 300mg IM. He will be due for his next injection on 03/24/2020. He remains somewhat isolative, but is improving slowly. Pt has req uested to shave, but is still not showered. As he is maintaining adequate hygiene otherwise, this has not been a focus of treatment. We have engaged his extensive outpatient supports in discharge planning, having had four discharge planning meetings to coordinate services. They are working on transitioning him from the [facility] to [facility], transitioning him to psychiatric care at [facility], and trying to minimize some of the medication errors/difficulties he has been experiencing when he transitions from inpatient to outpatient treatment. Plan is for discharge to the [facility] on Saturday, 02/28. (1) Schizophrenia: 02/09 -resume medication regimen he was on at the time of discharge 1 month ago, along with adding prn benztropine and prn Colace for potential s/e to his medications -Pt indicating willing to sign ROIs for his treatment providers and placement -individual therapy and as appropriate group therapy -coordinate with outpt providers and attempt to help coordinate treatment plan given tendency of changes of medication plan at f/u psychiatric appt occurring after discharge in pt compared to discharge medications. 02/10 - continue medication unchanged for now with aim to convert to FARAH form of Abilify if pt will consent, consideration of risks and benefits of Valium dosage to remain as rx'd over time given pt's past usage of those medications and complexity of this case mikey memory concerns and therapeutic alliance aspects that have a complex push and pull of the benefits and risks of this class of medications in complex ways 305 to 306 invol inpt conversion granted this morning (02/10) treatment team meeting with the various people involved in pt's care (outpt and inpt) to address various concerns including medication compliance, behavioral issues of pt, tensions between pt and [facility] staff, struggles to avoid decompensation in first weeks after discharge from the hospital, and apparent lack of continuance of inpt discharge medication plan after transition followup outpt psychiatric appointments recently. 02/11 - Continue current medication regimen, consider ongoing discussion regarding potential for conversion to an FARAH - Pt has been compliant with medications, but has not showered and is still limited in his attendance to ADLs - Meeting today with multi-disciplinary treatment team to discuss discharge and future treatment recommendations. Representation from [facility], Shruti Guadalupe, and the formerly [facility] were present. 02/12 -Continue medication regimen unchanged. Encouraging consistent compliance. -Another meeting being scheduled for Saturday for multidisciplinary treatment team 02/13 -Continues to appear more apathetic this admission. -Multidisciplinary meeting planned for Wednesday 02/14 - Continue to encourage consistency with his current medication regimen - Aripiprazole adjusted to qAM dosing to encourage opportunity to accept the medication - re-evaluate willingness for FARAH administration when patient is appropriate for this conversation - Multidisciplinary meeting today 02/15 - Continue current medication regimen - patient has been more consistent with medication regimen the past 2 days - Continue to assess willingness for an FAARH when patient becomes more agreeable - Pt is permitted to return to the [facility] on discharge, which is his expressed desire as well. Plan is for future transition to a personal skilled nursing within 02/16 - Continue current medication regimen - explore willingness for FARAH - Multidisciplinary discharge planning meeting update for tomorrow - Pt continues to verbalize desire for discharge back to the [facility] - pt did indicate desire to shave and shower today, but has yet to take steps to complete these tasks 02/17 -Third discharge planning meeting held today with Shruti Guadalupe case management and measurement supervisor, [facility] staff, social sciences chair, and Dr. Campos. Patient declined to attend. We will attempt to get him to sign a release for [facility], and Tisha may come and talk with him if he is willing. The plan is for him to return to the [facility] in the interim, but to transition to [facility] in the near future. We are also working on transitioning him to Dr. Pizarro at [facility], who will review records and has been invited to contact me if he has any questions. -Patient's manager of case indicates he is often resistant to the manager of case attending psychiatric appointments with him, and would like this to be specified on the involuntary outpatient commitment plan. -Contacted patient's pharmacy ([facility]) to cancel all of his previous refills from Dr. Alves, as this was causing significant confusion and he was filling old, discontinued medications as there was still refills left at the pharmacy. -Continue aripiprazole 10 mg every morning; patient's compliance has improved and he has taken it the past 4 days. Has still not agreed to an FARAH, but will continue to encourage transition to [facility] to improve compliance. Fasting labs were last done in 02/2019, so will order for tomorrow for monitoring on an atypical. -He was continued on home doses of temazepam 7.5 mg at bedtime and diazepam 5 mg twice daily, and has been compliant with them the past 3 days. Given risk of sedation and his ongoing poor energy/motivation, I will decrease his diazepam to once daily in the morning. Discussed with his outpatient team that these medications would need to be dispensed daily by staff given his history of benzodiazepine abuse and overdoses. -Patient still appearing depressed, amotivated, irritable, not tending to ADLs, still has not showered despite agreeing to do so. 02/18 - 02/21 continue current meds and treatment plan 02/22 - Continue current treatment plan - Multidisciplinary meeting scheduled for 02/23 via Zoom to coordinate aftercare services - Awaiting confirmation that patient can be seen at [facility] for psychiatric medication management 02/23 -fourth discharge planning meeting home today with outpatient manager of case and [facility] staff. Patient will follow up with Dr. Pizarro at [facility], therapist at [facility], and [facility] will attend psychiatric appointments with him. The [facility] will have his medications sent in bubble packs from the mail order pharmacy, and will hold all of his meds and dispensed to him daily. He will return to the [facility] at discharge, and they will continue exploring options at [facility]. Plan is for discharge 02/29/2020, with follow-up with Dr. Pizarro the following week, but still awaiting confirmed appointment. -We will need to convert back to an outpatient commitment at discharge. 02/24 - Continue current treatment plan - pt continues to be agreeable with plan for discharge 02/28 - Awaiting confirmation of outpatient psychiatric appointments - plan is for follow-up at [facility] - Pt did consent to Abilify Maintena injection after review of risks, benefits, and potential side effects. Pt received 300mg IM injection - due for next injection 03/24/2020. Continue oral aripiprazole for 14 days. - Tolerating discontinuation of private room 02/25 and 02/26 and 02/27 - Continue current medication regimen - Pt received initial injection of Abilify Maintena (lower dose of 300mg IM was ordered to to risk associated with age, recent cognitive changes, and that he was only receiving an oral dose of 10mg). Pt aware that he will continue with oral supplementation for 2-weeks. - Continue diazepam 5mg qAM and temazepam 7.5mg qHS - Plan is for discharge to the [facility] on 02/28 - Outpatient appointments scheduled with Aleksandra (2) Memory changes: 02/09 -patient was seen by neurology in a recent prior admission and had a scheduled neurology outpt appt on 02/02/2020 that he reported not attending out of not feeling it would be beneficial for him. Neurology has also sought neuropsych testing and this has not occurred as of yet and likely not scheduled, will attempt to coordinate this further during this admission. Pt is noted to have multiple risk factors for A recent brain MRI was notable for mild progressive nonspecific foci of increased T2 signal within the white matter, likely on a small vessel basis, but negative for acute intracranial findings, masses, subacute or acute infarction. He is scheduled to follow-up with Dr. Caal. 02/17 - Discussed concerns for cognitive decline with his OP manager of case, and that this could be due to schizophrenia, a dementing illness, or the effects of medications, specifically benzodiazepines. He has not been sufficiently psychiatrically stable during the past 6 months to determine how much of his cognitive impairment is due to his thought disorder. This will require ongoing monitoring and assessment. There is not sufficient evidence at this time to make a diagnosis of dementia. 02/24 - Recommend continued outpatient neurology follow-up (3) Tobacco use disorder: 02/09 - pt expressed desire for nicotine patch 21mg a day but then refused when nurses offered it to him, pt refused nicotinate gum offered, pt expressed some interested in quitting smoking but is too psychotic to engage in smoking cessation at this time and will perform once more appropriate to do so 02/10 - been refusing nicotine patch to date, will continue to have offer at this time 02/17 -patient has consistently refused the patch, so we will discontinue it. Risk Factors Assessment Male: Yes : Yes Do You Have Access To A Gun?: No Health Problems: Yes Mental Health Diagnoses: Yes Substance Use Disorders: Yes Previous Attempt: Yes Previous Attempt; Highly Lethal: Yes Previous Psychiatric Hospitalization: Yes Hopelessness: No Smoker: Yes Protective Factors Assessment : No Employed: No Stable Relationships: No Good Rapport with Provider: No Interval History Identifying Information SCOTT ROBERTO is a 74-year-old M who currently lives in in a CRR in [place], has a history of schizophrenia, and was admitted on 02/09/20 21:03 on a 302 involuntary commitment with an active 305 involuntary outpatient commitment for inability to take care of self and disorganized behaviors. Chief Complaint "I am okay". Review of Systems Sleep Information Total Hours of Sleep: 7.25 Sleep Comments: awakened for vital signs around 0620 Meal Information Percent Meal Consumed - Breakfast: 100 Percent Meal Consumed - Lunch: 100 Percent Meal Consumed - Dinner: 100 Subjective Subjective Patient was seen & assessed and interval progress reviewed with nursing and social work Pt is quiet keeping to self, eating and sleeping. Patient stated today "I am fine" and is looking forward to progressing to [facility]. He denies physical concerns, mood is "fine" "no anxiety" and denies having SE to medications.Denies safety concerns. He denies feeling paranoid and denies hearing or seeing things. He does not wish to discuss anything else today. Physical Exam Psychiatric Orientation: alert and oriented x 3 Apperance: appropriately dressed and appropriately groomed Eye Contact: good eye contact Motor Behavior: steady gait and station Speech: normal rate/rhythm/volume of speech Affect: + blunted affect "fine" minimal spontaneous thought offered aside from direct questions, cooperative seems content neither engaged nor bothered denies concerns, notable for absence of spont content Suicidal Thoughts: denies suicidal thoughts Estimated Intelligence: average estimated intelligence Insight: + limited insight Judgement: + limited judgement Vital Signs (Past 24 Hours) Last Vital Signs Temp 36.6 C 02/28/20 06:51 Pulse 70 02/28/20 06:53 Resp 16 02/28/20 06:51 BP 121/74 02/28/20 06:53 Pulse Ox 97 02/09/20 21:18 Results & Data ([facility]) Current Inpatient Medications Current Inpatient Medications: Current Inpatient Medications Acetaminophen (Tylenol) 650 mg PO Q4H PRN PRN Reason: Headache or Minor Fever Stop: 03/10/20 20:58 Al Hydrox/Mg Hydrox/Simethicone (Maalox) 30 ml PO Q4H PRN PRN Reason: GI Upset Stop: 03/10/20 20:58 Aripiprazole (Abilify) 10 mg PO QAM MAG Stop: 03/16/20 10:29 Last Admin: 02/28/20 07:52 Dose: 10 mg Documented by: Aripiprazole (Abilify Maintena Kit) 300 mg IM ONE ONE Stop: 03/24/20 09:01 Benztropine Mesylate (Cogentin) 0.5 mg PO BID PRN PRN Reason: akasthesia Stop: 03/11/20 10:45 Bismuth Subsalicylate (Kaopectate) 15 ml PO PRN PRN PRN Reason: Loose Stool Stop: 03/10/20 20:58 Diazepam (Valium) 5 mg PO QAM MAG Stop: 03/20/20 08:59 Last Admin: 02/28/20 07:52 Dose: 5 mg Documented by: Docusate Sodium (Colace) 100 mg PO BID PRN PRN Reason: Constipation Stop: 03/11/20 20:59 Hydroxyzine HCl (Vistaril) 50 mg PO HSZ PRN PRN Reason: Insomnia Stop: 03/10/20 20:58 Hydroxyzine HCl (Vistaril) 25 mg PO Q4H PRN PRN Reason: Anxiety Stop: 03/10/20 20:58 Magnesium Hydroxide (Milk Of Magnesia) 30 ml PO DAILY PRN PRN Reason: Constipation Stop: 03/10/20 20:58 Melatonin (Melatonin) 10 mg PO HS PRN PRN Reason: Sleep Stop: 03/10/20 21:07 Sodium Chloride ([place] Nasal) 1 - 2 sprays NA PRN PRN PRN Reason: Nasal Dryness/Congestion Stop: 03/10/20 20:58 Temazepam (Restoril) 7.5 mg PO HSZ MAG Stop: 03/10/20 21:59 Last Admin: 02/27/20 20:57 Dose: 7.5 mg Documented by: Mental Health & Subst Abuse Tx Psychiatrist Name of Psychiatrist: [facility] - Intake Psychiatrist's Date of Appointment with Psychiatrist: 03/07/20 Time of Appointment with Psychiatrist: 11:00 a.m. [facility]iatric [facility]ment [id number] Name of Therapist: Katherynar - Intake Therapist's Date of Therapist Appointment: 03/07/20 Time of Therapist Appointment: 11:00 a.m. Therapy App[facility]ment [id number] [facility] Name of [employer] Farmworker: Starprashant Mcbride Phone Number for [employer] Farmworker: [phone] Case Management Appointment Comment: Will come see you Post Discharge Appointments Primary Care Physician Name Of Family Doctor: [facility] - Dr. Jeff Lopez Primary Care Time of Appointment with PCP: Follow up as needed Provider Appointment Comment: [address], [place] [id number], [place] [address] Contact Information Discharge Discharge Address: [address] [place] [address], [place] [address] (1) Schizophrenia Schizophrenia type: unspecified Qualified Code(s): F20.9 - Schizophrenia, unspecified
[2020-02-28] MEDS: TEMAZEPAM 7.5 MG CAPSULE PO SCH (21:05)
[2020-02-29] MEDS: ARIPiprazole 10 MG TAB PO SCH (08:30)
[2020-02-29] MEDS: diazePAM 5 MG TABLET PO SCH (08:30)
--- NOTE | 2020-02-29 11:53 | Psychiatric Progress Note ---
Date of Service February 29, 2020 Impression / Recommendations Impression Patient is well-known to us as this is his fifth hospitalization in the past 6 months. He has schizophrenia, with chronic noncompliance, leading to an involuntary outpatient commitment (on a 305). He was initially refusing medications, but has now resumed the regimen that was effective during his last 2 hospitalizations (aripiprazole, diazepam, and temazepam). Pt has been encouraged to consider Abilify Maintena for the last 2 admissions, and on 02/24 he accepted an initial dose of 300mg IM. He will be due for his next injection on 03/24/2020. He remains somewhat isolative, but is improving slowly. Pt has req uested to shave, but is still not showered. As he is maintaining adequate hygiene otherwise, this has not been a focus of treatment. We have engaged his extensive outpatient supports in discharge planning, having had four discharge planning meetings to coordinate services. They are working on transitioning him from the [facility] to [facility], transitioning him to psychiatric care at [facility], and trying to minimize some of the medication errors/difficulties he has been experiencing when he transitions from inpatient to outpatient treatment. Plan is for discharge to the [facility] once COVID-19 results are available, likely in the next 1-2 days. (1) Schizophrenia: 02/09 -resume medication regimen he was on at the time of discharge 1 month ago, along with adding prn benztropine and prn Colace for potential s/e to his medications -Pt indicating willing to sign ROIs for his treatment providers and placement -individual therapy and as appropriate group therapy -coordinate with outpt providers and attempt to help coordinate treatment plan given tendency of changes of medication plan at f/u psychiatric appt occurring after discharge in pt compared to discharge medications. 02/10 - continue medication unchanged for now with aim to convert to FARAH form of Abilify if pt will consent, consideration of risks and benefits of Valium dosage to remain as rx'd over time given pt's past usage of those medications and complexity of this case mikey memory concerns and therapeutic alliance aspects that have a complex push and pull of the benefits and risks of this class of medications in complex ways 305 to 306 invol inpt conversion granted this morning (02/10) treatment team meeting with the various people involved in pt's care (outpt and inpt) to address various concerns including medication compliance, behavioral issues of pt, tensions between pt and CRR staff, struggles to avoid decompensation in first weeks after discharge from the hospital, and apparent lack of continuance of inpt discharge medication plan after transition followup outpt psychiatric appointments recently. 02/11 - Continue current medication regimen, consider ongoing discussion regarding potential for conversion to an FARAH - Pt has been compliant with medications, but has not showered and is still limited in his attendance to ADLs - Meeting today with multi-disciplinary treatment team to discuss discharge and future treatment recommendations. Representation from CR[facility], Shruti Guadalupe, and [facility] were present. 02/12 -Continue medication regimen unchanged. Encouraging consistent compliance. -Another meeting being scheduled for Saturday for multidisciplinary treatment team 02/13 -Continues to appear more apathetic this admission. -Multidisciplinary meeting planned for Wednesday 02/14 - Continue to encourage consistency with his current medication regimen - Aripiprazole adjusted to qAM dosing to encourage opportunity to accept the medication - re-evaluate willingness for FARAH administration when patient is appropriate for this conversation - Multidisciplinary meeting today 02/15 - Continue current medication regimen - patient has been more consistent with medication regimen the past 2 days - Continue to assess willingness for an FARAH when patient becomes more agreeable - Pt is permitted to return to the CRR on discharge, which is his expressed desire as well. Plan is for future transition to a personal longterm within 02/16 - Continue current medication regimen - explore willingness for FARAH - Multidisciplinary discharge planning meeting update for tomorrow - Pt continues to verbalize desire for discharge back to the CRR - pt did indicate desire to shave and shower today, but has yet to take steps to complete these tasks 02/17 - discharge planning meeting held today with Shruti Guadalupe case management and supervisory historian, [facility] staff, long term care social worker, and Dr. Campos. Patient declined to attend. We will attempt to get him to sign a release for [place], and Tisha may come and talk with him if he is willing. The plan is for him to return to the CRR in the interim, but to transition to [place] [facility] in the near future. We are also working on transitioning him to Dr. Pizarro at [facility], who will review records and has been invited to contact me if he has any questions. -Patient's foster care case manager indicates he is often resistant to the foster care case manager attending psychiatric appointments with him, and would like this to be specified on the involuntary outpatient commitment plan. -Contacted patient's pharmacy ([facility]) to cancel all of his previous refills from Dr. Alves, as this was causing significant confusion and he was filling old, discontinued medications as there was still refills left at the pharmacy. -Continue aripiprazole 10 mg every morning; patient's compliance has improved and he has taken it the past 4 days. Has still not agreed to an FARAH, but will continue to encourage transition to [facility] to improve compliance. Fasting labs were last done in 02/2019, so will order for tomorrow for monitoring on an atypical. -He was continued on home doses of temazepam 7.5 mg at bedtime and diazepam 5 mg twice daily, and has been compliant with them the past 3 days. Given risk of sedation and his ongoing poor energy/motivation, I will decrease his diazepam to once daily in the morning. Discussed with his outpatient team that these medications would need to be dispensed daily by staff given his history of benzodiazepine abuse and overdoses. -Patient still appearing depressed, amotivated, irritable, not tending to ADLs, still has not showered despite agreeing to do so. 02/18 - 02/21 continue current meds and treatment plan 02/22 - Continue current treatment plan - Multidisciplinary meeting scheduled for 02/23 via Zoom to coordinate aftercare services - Awaiting confirmation that patient can be seen at [facility] for psychiatric medication management 02/23 -fourth discharge planning meeting home today with outpatient foster care case manager and [facility] staff. Patient will follow up with Dr. Pizarro at [facility], therapist at [facility], and [facility] will attend psychiatric appointments with him. The CRR will have his medications sent in bubble packs from the mail order pharmacy, and will hold all of his meds and dispensed to him daily. He will return to the CRR at discharge, and they will continue exploring options at [facility]. Plan is for discharge 02/29/2020, with follow-up with Dr. Pizarro the following week, but still awaiting confirmed appointment. -We will need to convert back to an outpatient commitment at discharge. 02/24 - Continue current treatment plan - pt continues to be agreeable with plan for discharge 02/28 - Awaiting confirmation of outpatient psychiatric appointments - plan is for follow-up at [facility] - Pt did consent to Abilify Maintena injection after review of risks, benefits, and potential side effects. Pt received 300mg IM injection - due for next injection 03/24/2020. Continue oral aripiprazole for 14 days. - Tolerating discontinuation of private room 02/25 and 02/26 and 02/27 - Continue current medication regimen - Pt received initial injection of Abilify Maintena (lower dose of 300mg IM was ordered to to risk associated with age, recent cognitive changes, and that he was only receiving an oral dose of 10mg). Pt aware that he will continue with oral supplementation for 2-weeks. - Continue diazepam 5mg qAM and temazepam 7.5mg qHS - Plan is for discharge to the CRR on 02/28 - Outpatient appointments scheduled with [facility] 02/28 - Continue current medication regimen - Unfortunately, discharge plan has changed, as patient is not able to be accepted back to the CR[facility] until COVID-19 results are confirmed. Pt is frustrated with finding out about this, but maintaining appropriate behavior - Plan for discharge once results are available or if CRR should be willing to have him return sooner. (2) Memory changes: 02/09 -patient was seen by neurology in a recent prior admission and had a scheduled neurology outpt appt on 02/02/2020 that he reported not attending out of not feeling it would be beneficial for him. Neurology has also sought neuropsych testing and this has not occurred as of yet and likely not scheduled, will attempt to coordinate this further during this admission. Pt is noted to have multiple risk factors for A recent brain MRI was notable for mild progressive nonspecific foci of increased T2 signal within the white matter, likely on a small vessel basis, but negative for acute intracranial findings, masses, subacute or acute infarction. He is scheduled to follow-up with Dr. Caal. 02/17 - Discussed concerns for cognitive decline with his OP foster care case manager, and that this could be due to schizophrenia, a dementing illness, or the effects of medications, specifically benzodiazepines. He has not been sufficiently psychiatrically stable during the past 6 months to determine how much of his cognitive impairment is due to his thought disorder. This will require ongoing monitoring and assessment. There is not sufficient evidence at this time to make a diagnosis of dementia. 02/24 - Recommend continued outpatient neurology follow-up (3) Tobacco use disorder: 02/09 - pt expressed desire for nicotine patch 21mg a day but then refused when nurses offered it to him, pt refused nicotinate gum offered, pt expressed some interested in quitting smoking but is too psychotic to engage in smoking cessation at this time and will perform once more appropriate to do so 02/10 - been refusing nicotine patch to date, will continue to have offer at this time 02/17 -patient has consistently refused the patch, so we will discontinue it. Risk Factors Assessment Male: Yes : Yes Do You Have Access To A Gun?: No Health Problems: Yes Mental Health Diagnoses: Yes Substance Use Disorders: Yes Previous Attempt: Yes Previous Attempt; Highly Lethal: Yes Previous Psychiatric Hospitalization: Yes Hopelessness: No Smoker: Yes Protective Factors Assessment : No Employed: No Stable Relationships: No Good Rapport with Provider: No Interval History Identifying Information SCOTT ROBERTO is a 74-year-old M who currently lives in in a CRR in [place], has a history of schizophrenia, and was admitted on 02/09/20 21:03 on a 302 involuntary commitment with an active 305 involuntary outpatient commitment for inability to take care of self and disorganized behaviors. Chief Complaint "Ok." Review of Systems Notes Limited willingness to participate in interview, but did not verbalize any physical concerns today. Sleep Information Total Hours of Sleep: 7.5 Sleep Comments: awakened for vital signs around 0620 Meal Information Percent Meal Consumed - Breakfast: 100 Percent Meal Consumed - Lunch: 95 Percent Meal Consumed - Dinner: 100 Subjective Subjective Patient was seen & assessed and interval progress reviewed with treatment team. It is reported that the CRR is not able to have patient return until the results of his COVID-19 testing are available, so patient is unable to be discharged today as previously discussed. Meeting scheduled with CRR director this morning. Pt was seen today to assess progress since admission. This provider observed the interaction in which patient was informed that the CRR was unable to pick him up this afternoon for discharge as originally discussed. Pt responded with "are you kidding me?" He then displayed a more irritable affect and declined to discuss the topic any further. He did attend community meeting this morning, but has been observed to be laying in his bed for most of the day. This provider attempted to meet with the patient later in the morning. Pt stated that he is "ok" and denied any concerns. This provider continued to ask questions, to which the patient did not respond. This provider did address the change in his discharge plan, and attempted to again explain the reason for delay. When asked how the patient was feeling after this change in discharge plan, the patient paused for a considerable period of time and stated "I don't want to say any more." This provider asked the patient if she could provide him with anything at this time, which he denied. He denied other needs or concerns at this time. Physical Exam Psychiatric Orientation: alert and + guarded Apperance: appropriately dressed (casually, but wearing same clothes since admission), appropriately groomed (shaven, unshowered but not malodorous) and appeared stated age Eye Contact: + fair eye contact Motor Behavior: no abnormal motor movements (observed while laying on bed) Speech: + abnormal rate/rhythm/volume of speech (limited response to questions) Affect: + irritable affect and + constricted affect Mood: no depressed mood ("Ok") Cognition: attention grossly intact and language grossly intact Insight: + limited insight Judgement: + limited judgement Vital Signs (Past 24 Hours) Last Vital Signs Temp 36.4 C L 02/29/20 06:52 Pulse 74 02/29/20 06:52 Resp 18 02/29/20 06:52 BP 132/76 02/29/20 06:52 Pulse Ox 97 02/09/20 21:18 Results & Data ([facility]) Current Inpatient Medications Current Inpatient Medications: Current Inpatient Medications Acetaminophen (Tylenol) 650 mg PO Q4H PRN PRN Reason: Headache or Minor Fever Stop: 03/10/20 20:58 Al Hydrox/Mg Hydrox/Simethicone (Maalox) 30 ml PO Q4H PRN PRN Reason: GI Upset Stop: 03/10/20 20:58 Aripiprazole (Abilify) 10 mg PO QAM MAG Stop: 03/16/20 10:29 Last Admin: 02/29/20 08:30 Dose: 10 mg Documented by: Aripiprazole (Abilify Maintena Kit) 300 mg IM ONE ONE Stop: 03/24/20 09:01 Benztropine Mesylate (Cogentin) 0.5 mg PO BID PRN PRN Reason: akasthesia Stop: 03/11/20 10:45 Bismuth Subsalicylate (Kaopectate) 15 ml PO PRN PRN PRN Reason: Loose Stool Stop: 03/10/20 20:58 Diazepam (Valium) 5 mg PO QAM MAG Stop: 03/20/20 08:59 Last Admin: 02/29/20 08:30 Dose: 5 mg Documented by: Docusate Sodium (Colace) 100 mg PO BID PRN PRN Reason: Constipation Stop: 03/11/20 20:59 Hydroxyzine HCl (Vistaril) 50 mg PO HSZ PRN PRN Reason: Insomnia Stop: 03/10/20 20:58 Hydroxyzine HCl (Vistaril) 25 mg PO Q4H PRN PRN Reason: Anxiety Stop: 03/10/20 20:58 Magnesium Hydroxide (Milk Of Magnesia) 30 ml PO DAILY PRN PRN Reason: Constipation Stop: 03/10/20 20:58 Melatonin (Melatonin) 10 mg PO HS PRN PRN Reason: Sleep Stop: 03/10/20 21:07 Sodium Chloride ([place] Nasal) 1 - 2 sprays NA PRN PRN PRN Reason: Nasal Dryness/Congestion Stop: 03/10/20 20:58 Temazepam (Restoril) 7.5 mg PO HSZ MAG Stop: 03/10/20 21:59 Last Admin: 02/28/20 21:05 Dose: 7.5 mg Documented by: Mental Health & Subst Abuse Tx Psychiatrist Name of Psychiatrist: Aleksandra - [facility] Psychiatrist's Date of Appointment with Psychiatrist: 03/07/20 Time of Appointment with Psychiatrist: 11:00 a.m. Psychiatric Appointment Comment: [id number] [facility] Merline Gandara [place] Therapist Name of Therapist: Katherynar - Intake Therapist's Date of Therapist Appointment: 03/07/20 Time of Therapist Appointment: 11:00 a.m. Therapy Appointment Comment: [id number] [place] Merline Gandara [place] Security Rover Name of Security Rover: Shruti Mcbride Phone Number for Security Rover: [phone] Case Management Appointment Comment: Will come see you Post Discharge Appointments Primary Care Physician Name Of Family Doctor: [facility] - Dr. Jeff Lopez Primary Care Time of Appointment with PCP: Follow up as needed Provider Appointment Comment: [address], [address], [place] [address] Contact Information Discharge Discharge Address: [address] [place] [address], [place] [address] (1) Schizophrenia Schizophrenia type: unspecified Qualified Code(s): F20.9 - Schizophrenia, unspecified
[2020-02-29] MEDS: TEMAZEPAM 7.5 MG CAPSULE PO SCH (20:56)
[2020-03-01] MEDS: ARIPiprazole 10 MG TAB PO SCH (08:00)
[2020-03-01] MEDS: diazePAM 5 MG TABLET PO SCH (08:01)
--- NOTE | 2020-03-01 09:05 | Discharge Summary ---
Date of Service March 01, 2020 History of Present Illness Trey is well-known to staff and to me from multiple past episodes of care, He was most recently on of [facility] for days after and discharged . During that hospitalization, he had multiple medication adjustments and medication trials, and was ultimately discharged on Trey reports taking medications "occasionally" And it appears pt has been taking a combination of medications that were prescribed at above hospital discharge with other medcications rx'd by his primary psychiatrist. Dr. Alves. Pt reports not attending his scheduled neurology appt that was scheduled for a week prior to this current admission. He was brought to [facility] Er on 02/09/2020 due to and was admitted to [facility] after attempting a bed search for geripsych units. on this admission assessment he denied SI or HI. He endorsed viewing staff at his [facility] negatively given their policies and expressed staff not liking him. He answered no comment to questions regarding hallucinations. He denied having paranoid thinking or related concerns. He viewed any impairments of his memory as mild and tied to just due to aging. He was unaware of the month, date of month or day of week but did correctly state the time of day and year. He was oriented to person and place. He endorsed feeling comfortable here on the unit and endorsed willingness to sign JEFFREY to obtain information. He endorsed openness to resume the medications rx'd at discharge from his most recent admission. Pt endorsed not sleeping for about 6 nights prior to his admission, although pt tends to report this and is not considered a reliable historian on questions of time line nor on his sleep in general. He reports sleeping decently last night. At time of admission into this morning, he refused to participate in nursing admission assessment, and refused to take medications. He was also non cooperative in the ER assessments and was reported to not answer questions nor have spontaneous speech while in the ER. UTI was ruled out pt strongly with time line questions and appears to combine recent admissions and recent history with some memory impairment along with disorganized thinking and also the number and length of recent admission likely contributing factors Physical Exam Psychiatric Orientation: alert and + guarded (but cooperative ) Apperance: appropriately dressed (wearing clean clothing - t-shirt and scrub pants), appropriately groomed (freshly showered and clean shaven) and appeared stated age Eye Contact: good eye contact Motor Behavior: no abnormal motor movements Speech: normal rate/rhythm/volume of speech (brief, but polite responses to questions) Affect: + blunted affect (somewhat brighter affect today, but remains subdued) and + constricted affect Mood: no depressed mood ("I feel better") Thought Process: goal directed thought process and + concrete thought process Thought Content: not paranoid, no delusions (does not verbalize any delusional t hought content during today's encounter) and no hopelessness Suicidal Thoughts: denies suicidal thoughts, denies suicidal plan and denies suicidal intent Homicidal Thoughts: denies homicidal thoughts Hallucinations: no auditory hallucinations (denying auditory hallucinations ("voices") today) and no visual hallucinations Cognition: attention grossly intact and language grossly intact Insight: + limited insight (chronic observation) Judgement: + limited judgement (chronic observation) Vital Signs (Past 24 Hours) Last Vital Signs Temp 36.4 C L 03/01/20 06:46 Pulse 60 03/01/20 06:47 Resp 18 03/01/20 06:46 BP 125/79 03/01/20 06:47 Pulse Ox 97 02/09/20 21:18 Principal Diagnosis - Schizophrenia - History of tobacco use disorder (no longer receiving nicotine replacement products) Psychiatric Data 74-year-old male admitted involuntarily for inpatient psychiatric treatment on 02/10/2020 with 302 petitioning statement completed by CRR staff for medication noncompliance, not showering or attending to ADLs, not eating/drinking consistently, not sleeping, and putting other CRR residents at risk of harm by putting out cigarettes on a coffee table in the common area. 306 conversion hearing was held, to convert his 305 to an inpatient commitment. Patient is well-known to us as this is his fifth hospitalization in the past 6 months. He has schizophrenia, with chronic noncompliance, leading to an involuntary outpatient commitment (on a 305). He was initially refusing medications, but has now resumed the regimen that was effective during his last 2 hospitalizations (aripiprazole, diazepam, and temazepam). Pt has been encouraged to consider Abilify Maintena for the last 2 admissions, and on 02/24 he accepted an initial dose of 300mg IM. He will be due for his next injection on 03/24/2020 and was instructed to continue oral aripiprazole for 14 days after the initial injection. He has a chronic tendency toward isolation, but did attend more groups over the course of his admission. Pt quickly demonstrated improvement in sleep and nutritional intake, and after ~2 weeks did request to shave and showered the day of discharge. Numerous meetings were coordinated with his team of extensive outpatient supports - pt agreed to transition p sychiatric service to [facility]. The CRR will continue to work with the patient to transition to a personal long term over time, specifically looking into [facility]. COVID-19 test was requested by discharge facility prior to transfer home, and were negative. Pt consistently denied mood concerns and SI during his admission. He maintains that there are no perceived safety concerns related to discharge. Based on review of patient's case and their current presentation, risk of harm to self or others is no longer perceived to be acute. Management of symptoms on an outpatient basis seems the most appropriate and least restrictive setting. Pt seems appropriate for discharge with recommendation for consistent follow-up with outpatient psychiatric prescriber, therapist, and employment specialist/program manager. Pt verbalized understanding of discharge plan reviewed and is agreeable with plan to be discharged to the [facility] today. Day of Discharge Assessment Patient's case was reviewed and discussed during morning report with nursing, social work, and supervising psychiatrist. Staff report the patient continues to demonstrate appropriate behavior, displaying an improved affect after learning that discharge was scheduled for today. Pt verbalized to staff that he was ready for discharge, even requesting to shower, shave, and do laundry this morning. Pt was seen today to assess readiness for discharge. Pt states he is "ok" today. He denies any new concerns and is aware that discharge is scheduled for later this morning, with transportation being provided back to the [facility]. Pt was asked his thoughts about this admission and perceived changes/improvements. He does state "I feel better." He was unable to provide any specific examples of this. Pt denied SI or other safety concerns related to discharge. He denies auditory hallucinations at this time. Pt is agreeable with discharge to the CRR today and does brighten when talking about returning there. He denies other needs prior to discharge. ROS: Constitutional: denied Cardiovascular: denied Respiratory: denied Gastrointestinal: denied Neurological: denied Psychiatric: denies symptoms other than stated above Total of at least 10 systems reviewed, pertinent positives as above and in HPI. Transition of Care Transition Of Care Record: was reviewed with the patient Advance Directives Advance Directives Information Provided: Yes Advance Directives: No Mental Health Advance Directive: No Advance Directives on File: No Living Will: No Power of Dinkey Mechanic: No Advance Directives Reason:: Declines as Mental Health Visit. Risk Factors Assessment Presenting risk factors reviewed on discharge. Precipitating stressors mitigated by: admission for inpatient psychiatric observation and treatment, appropriate adjustments to medications to target symptoms, attendance of therapeutic treatment groups, development of healthy and effective coping strategies, involvement of outpatient supports, completion of a safety plan, and education on diagnoses. Pt has demonstrated improvement in condition with regard to improvement in mood, improved attendance to ADLs, resolution of acute psychosis/delusions, and ability to verbally contract for safety. At this time, patient is requesting discharge and is no longer considered to be at acute risk of harm to himself or others. Pt will be discharged with recommendation for ongoing outpatient psychiatric treatment. Male: Yes : Yes Do You Have Access To A Gun?: No Health Problems: Yes Mental Health Diagnoses: Yes Substance Use Disorders: Yes Previous Attempt: Yes Previous Attempt; Highly Lethal: Yes Previous Psychiatric Hospitalization: Yes Hopelessness: No Smoker: Yes Protective Factors Assessment : No Employed: No Stable Relationships: No Good Rapport with Provider: No Tobacco Cessation at Discharge Tobacco Cessation Medication Prescribed at Discharge: Offered & Pt Refused (stepped down from nicotine replacement products over course of admission; not utilizing any replacement products for most of admission) Total Time Total Time Spent: Greater Than 30 Minutes Total Time Includes: Examination of the patient, Discharge Planning, Medication Reconciliation and Communication with other providers Discharge Data Lab Results 02/09/20 02/09/20 02/09/20 12:47 12:47 12:47 WBC 11.58 H RBC 5.35 Hgb 17.0 Hct 49.6 MCV 92.7 MCH 31.8 MCHC 34.3 RDW Std Deviation 43.8 RDW Coeff of Namita 13.0 Plt Count 394 MPV 9.5 Immature Gran % (Auto) 0.2 Neut % (Auto) 62.6 Lymph % (Auto) 21.9 [place] % (Auto) 7.5 Eos % (Auto) 7.5 Baso % (Auto) 0.3 Neut # (Auto) 7.24 H Lymph # (Auto) 2.54 [place] # (Auto) 0.87 H Eos # (Auto) 0.87 H Baso # (Auto) 0.04 Immature Gran # (Auto) 0.02 Sodium 137 Potassium 3.2 L Chloride 104 Carbon Dioxide 19 L Anion Gap 14.0 H BUN 29 H Creatinine 0.91 Est Cr Clr Drug Dosing Not Reportable Est GFR ( Amer) 96.6 Est GFR (Non-Af Amer) 83.3 BUN/Creatinine Ratio 32.2 H Glucose 87 Calcium 9.3 Total Bilirubin 0.8 AST 19 ALT 34 Alkaline Phosphatase 136 H Total Protein 8.7 H Albumin 4.0 Globulin 4.7 H Albumin/Globulin Ratio 0.9 TSH 0.452 Urine Color Urine Appearance Urine pH Ur Specific [place] Urine Protein Urine Glucose (UA) Urine Ketones Urine Blood Urine Nitrite Urine Bilirubin Urine Urobilinogen Ur Leukocyte Esterase Urine WBC (Auto) Urine RBC (Auto) U Hyaline Cast (Auto) U Epithel Cells (Auto) Urine Bacteria (Auto) Salicylates 3.1 Urine Opiates Screen Ur Methadone, Qual Acetaminophen < 2 L Urine Barbiturates Ur Phencyclidine (PCP) U Amphetamin/Meth Scrn MDMA (Ecstasy) Screen U OH-Alprazolam Confrm U Benzodiazepines Scrn 7-Amino Clonazepam Ur Nordiazepam Confirm U OH-ethylflurazepam U Lorazepam Cnf GC/MS U Oxazepam Confm GC/MS Ur Temazepam Confirm U OH-Triazolam Confirm U OH-Midazolam Confirm Ur Cocaine Metabolite U Marijuana (THC) Screen Drug Screen Comment Ethyl Alcohol mg/dL COVID-19 PCR SARS-CoV-2 RNA (RT-PCR) 02/09/20 02/09/20 02/09/20 12:47 13:15 13:15 WBC RBC Hgb Hct MCV MCH MCHC RDW Std Deviation RDW Coeff of Namita Plt Count MPV Immature Gran % (Auto) Neut % (Auto) Lymph % (Auto) [place] % (Auto) Eos % (Auto) Baso % (Auto) Neut # (Auto) Lymph # (Auto) [place] # (Auto) Eos # (Auto) Baso # (Auto) Immature Gran # (Auto) Sodium Potassium Chloride Carbon Dioxide Anion Gap BUN Creatinine Est Cr Clr Drug Dosing Est GFR ( Amer) Est GFR (Non-Af Amer) BUN/Creatinine Ratio Glucose Calcium Total Bilirubin AST ALT Alkaline Phosphatase Total Protein Albumin Globulin Albumin/Globulin Ratio TSH Urine Color Dark Yellow Urine Appearance Clear Urine pH 5.5 Ur Specific [place] 1.028 Urine Protein Trace H Urine Glucose (UA) Negative Urine Ketones 4+ H Urine Blood Trace H Urine Nitrite Negative Urine Bilirubin Negative Urine Urobilinogen Negative Ur Leukocyte Esterase Negative Urine WBC (Auto) 1-5 Urine RBC (Auto) 0-4 U Hyaline Cast (Auto) 1-5 U Epithel Cells (Auto) 10-20 H Urine Bacteria (Auto) Negative Salicylates Urine Opiates Screen Neg Ur Methadone, Qual Neg Acetaminophen Urine Barbiturates Neg Ur Phencyclidine (PCP) Neg U Amphetamin/Meth Scrn Neg MDMA (Ecstasy) Screen Neg U OH-Alprazolam Confrm U Benzodiazepines Scrn Pos H 7-Amino Clonazepam Ur Nordiazepam Confirm U OH-ethylflurazepam U Lorazepam Cnf GC/MS U Oxazepam Confm GC/MS Ur Temazepam Confirm U OH-Triazolam Confirm U OH-Midazolam Confirm Ur Cocaine Metabolite Neg U Marijuana (THC) Screen Neg Drug Screen Comment Ethyl Alcohol mg/dL < 3.0 COVID-19 PCR SARS-CoV-2 RNA (RT-PCR) 02/09/20 02/09/20 02/09/20 13:15 18:05 18:05 WBC RBC Hgb Hct MCV MCH MCHC RDW Std Deviation RDW Coeff of Namita Plt Count MPV Immature Gran % (Auto) Neut % (Auto) Lymph % (Auto) [place] % (Auto) Eos % (Auto) Baso % (Auto) Neut # (Auto) Lymph # (Auto) [place] # (Auto) Eos # (Auto) Baso # (Auto) Immature Gran # (Auto) Sodium Potassium Chloride Carbon Dioxide Anion Gap BUN Creatinine Est Cr Clr Drug Dosing Est GFR ( Amer) Est GFR (Non-Af Amer) BUN/Creatinine Ratio Glucose Calcium Total Bilirubin AST ALT Alkaline Phosphatase Total Protein Albumin Globulin Albumin/Globulin Ratio TSH Urine Color Urine Appearance Urine pH Ur Specific [place] Urine Protein Urine Glucose (UA) Urine Ketones Urine Blood Urine Nitrite Urine Bilirubin Urine Urobilinogen Ur Leukocyte Esterase Urine WBC (Auto) Urine RBC (Auto) U Hyaline Cast (Auto) U Epithel Cells (Auto) Urine Bacteria (Auto) Salicylates Urine Opiates Screen Ur Methadone, Qual Acetaminophen Urine Barbiturates Ur Phencyclidine (PCP) U Amphetamin/Meth Scrn MDMA (Ecstasy) Screen U OH-Alprazolam Confrm NEGATIVE U Benzodiazepines Scrn 7-Amino Clonazepam NEGATIVE Ur Nordiazepam Confirm 61 H U OH-ethylflurazepam NEGATIVE U Lorazepam Cnf GC/MS NEGATIVE U Oxazepam Confm GC/MS 513 H Ur Temazepam Confirm 104 H U OH-Triazolam Confirm NEGATIVE U OH-Midazolam Confirm NEGATIVE Ur Cocaine Metabolite U Marijuana (THC) Screen Drug Screen Comment SEE NOTE Ethyl Alcohol mg/dL COVID-19 PCR NEGATIVE SARS-CoV-2 RNA (RT-PCR) Cancelled 02/26/20 Unknown WBC RBC Hgb Hct MCV MCH MCHC RDW Std Deviation RDW Coeff of Namita Plt Count MPV Immature Gran % (Auto) Neut % (Auto) Lymph % (Auto) [place] % (Auto) Eos % (Auto) Baso % (Auto) Neut # (Auto) Lymph # (Auto) [place] # (Auto) Eos # (Auto) Baso # (Auto) Immature Gran # (Auto) Sodium Potassium Chloride Carbon Dioxide Anion Gap BUN Creatinine Est Cr Clr Drug Dosing Est GFR ( Amer) Est GFR (Non-Af Amer) BUN/Creatinine Ratio Glucose Calcium Total Bilirubin AST ALT Alkaline Phosphatase Total Protein Albumin Globulin Albumin/Globulin Ratio TSH Urine Color Urine Appearance Urine pH Ur Specific [place] Urine Protein Urine Glucose (UA) Urine Ketones Urine Blood Urine Nitrite Urine Bilirubin Urine Urobilinogen Ur Leukocyte Esterase Urine WBC (Auto) Urine RBC (Auto) U Hyaline Cast (Auto) U Epithel Cells (Auto) Urine Bacteria (Auto) Salicylates Urine Opiates Screen Ur Methadone, Qual Acetaminophen Urine Barbiturates Ur Phencyclidine (PCP) U Amphetamin/Meth Scrn MDMA (Ecstasy) Screen U OH-Alprazolam Confrm U Benzodiazepines Scrn 7-Amino Clonazepam Ur Nordiazepam Confirm U OH-ethylflurazepam U Lorazepam Cnf GC/MS U Oxazepam Confm GC/MS Ur Temazepam Confirm U OH-Triazolam Confirm U OH-Midazolam Confirm Ur Cocaine Metabolite U Marijuana (THC) Screen Drug Screen Comment Ethyl Alcohol mg/dL COVID-19 PCR SARS-CoV-2 RNA (RT-PCR) NEGATIVE Hospital Course (1) Schizophrenia: 02/09 -resume medication regimen he was on at the time of discharge 1 month ago, along with adding prn benztropine and prn Colace for potential s/e to his medications -Pt indicating willing to sign ROIs for his treatment providers and placement -individual therapy and as appropriate group therapy -coordinate with outpt providers and attempt to help coordinate treatment plan given tendency of changes of medication plan at f/u psychiatric appt occurring after discharge in pt compared to discharge medications. 02/10 - continue medication unchanged for now with aim to convert to FARAH form of Abilify if pt will consent, consideration of risks and benefits of Valium dosage to remain as rx'd over time given pt's past usage of those medications and complexity of this case mikey memory concerns and therapeutic alliance aspects that have a complex push and pull of the benefits and risks of this class of medications in complex ways 305 to 306 invol inpt conversion granted this morning (02/10) treatment team meeting with the various people involved in pt's care (outpt and inpt) to address various concerns including medication compliance, behavioral issues of pt, tensions between pt and CRR staff, struggles to avoid decompensation in first weeks after discharge from the hospital, and apparent lack of continuance of inpt discharge medication plan after transition followup outpt psychiatric appointments recently. 02/11 - Continue current medication regimen, consider ongoing discussion regarding potential for conversion to an FARAH - Pt has been compliant with medications, but has not showered and is still limited in his attendance to ADLs - Meeting today with multi-disciplinary treatment team to discuss discharge and future treatment recommendations. Representation from [facility], Shruti Guadalupe, and [facility] were present. 02/12 -Continue medication regimen unchanged. Encouraging consistent compliance. -Another meeting being scheduled for Saturday for multidisciplinary treatment team 02/13 -Continues to appear more apathetic this admission. -Multidisciplinary meeting planned for Wednesday 02/14 - Continue to encourage consistency with his current medication regimen - Aripiprazole adjusted to qAM dosing to encourage opportunity to accept the medication - re-evaluate willingness for FARAH administration when patient is ap propriate for this conversation - Multidisciplinary meeting today 02/15 - Continue current medication regimen - patient has been more consistent with medication regimen the past 2 days - Continue to assess willingness for an FARAH when patient becomes more agreeable - Pt is permitted to return to the [facility]R on discharge, which is his expressed desire as well. Plan is for future transition to a personal long term within 02/16 - Continue current medication regimen - explore willingness for FARAH - Multidisciplinary discharge planning meeting update for tomorrow - Pt continues to verbalize desire for discharge back to the CR[facility] - pt did indicate desire to shave and shower today, but has yet to take steps to complete these tasks 02/17 -Third discharge planning meeting held today with Shruti Guadalupe case management and supervisor instrument maintenance, [facility] staff, social work assistant, and Dr. Campos. Patient declined to attend. We will attempt to get him to sign a release for [facility], and Tisha may come and talk with him if he is willing. The plan is for him to return to the [facility] in the interim, but to transition to [facility] in the near future. We are also working on transitioning him to Dr. Pizarro at [facility], who will review records and has been invited to contact me if he has any questions. -Patient's employment specialist/program manager indicates he is often resistant to the employment specialist/program manager attending psychiatric appointments with him, and would like this to be specified on the involuntary outpatient commitment plan. -Contacted patient's pharmacy ([facility]) to cancel all of his previous refills from Dr. Alves, as this was causing significant confusion and he was filling old, discontinued medications as there was still refills left at the pharmacy. -Continue aripiprazole 10 mg every morning; patient's compliance has improved and he has taken it the past 4 days. Has still not agreed to an FARAH, but will continue to encourage transition to [facility] to improve compliance. Fasting labs were last done in 02/2019, so will order for tomorrow for monitoring on an atypical. -He was continued on home doses of temazepam 7.5 mg at bedtime and diazepam 5 mg twice daily, and has been compliant with them the past 3 days. Given risk of sedation and his ongoing poor energy/motivation, I will decrease his diazepam to once daily in the morning. Discussed with his outpatient team that these medications would need to be dispensed daily by staff given his history of benzodiazepine abuse and overdoses. -Patient still appearing depressed, amotivated, irritable, not tending to ADLs, still has not showered despite agreeing to do so. 02/18 - 02/21 continue current meds and treatment plan 02/22 - Continue current treatment plan - Multidisciplinary meeting scheduled for 02/23 via Zoom to coordinate after are services - Awaiting confirmation that patient can be seen at [facility] for psychiatric medication management 7/8 -fourth discharge planning meeting home today with outpatient employment specialist/program manager and [facility] staff. Patient will follow up with Dr. Pizarro at [facility], therapist at [facility], and B[facility] will attend psychiatric appointments with him. The CRR will have his medications sent in bubble packs from the mail order pharmacy, and will hold all of his meds and dispensed to him daily. He will return to the CRR at discharge, and they will continue exploring options at [facility]. Plan is for discharge 02/29/2020, with follow-up with Dr. Pizarro the following week, but still awaiting confirmed appointment. -We will need to convert back to an outpatient commitment at discharge. 02/24 - Continue current treatment plan - pt continues to be agreeable with plan for discharge 02/28 - Awaiting confirmation of outpatient psychiatric appointments - plan is for follow-up at [facility] - Pt did consent to Abilify Maintena injection after review of risks, benefits, and potential side effects. Pt received 300mg IM injection - due for next injection 03/24/2020. Continue oral aripiprazole for 14 days. - Tolerating discontinuation of private room 02/25 and 02/26 and 02/27 - Continue current medication regimen - Pt received initial injection of Abilify Maintena (lower dose of 300mg IM was ordered to to risk associated with age, recent cognitive changes, and that he was only receiving an oral dose of 10mg). Pt aware that he will continue with oral supplementation for 2-weeks. - Continue diazepam 5mg qAM and temazepam 7.5mg qHS - Plan is for discharge to the [facility] on 02/28 - Outpatient appointments scheduled with [facility] 02/28 - Continue current medication regimen - Unfortunately, discharge plan has changed, as patient is not able to be accepted back to the [facility] until COVID-19 results are confirmed. Pt is frustrated with finding out about this, but maintaining appropriate behavior - Plan for discharge once results are available or if CRR should be willing to have him return sooner. (2) Memory changes: 02/09 -patient was seen by neurology in a recent prior admission and had a scheduled neurology outpt appt on 02/02/2020 that he reported not attending out of not feeling it would be beneficial for him. Neurology has also sought neur opsych testing and this has not occurred as of yet and likely not scheduled, will attempt to coordinate this further during this admission. Pt is noted to have multiple risk factors for A recent brain MRI was notable for mild progressive nonspecific foci of increased T2 signal within the white matter, likely on a small vessel basis, but negative for acute intracranial findings, masses, subacute or acute infarction. He is scheduled to follow-up with Dr. Caal. 02/17 - Discussed concerns for cognitive decline with his OP employment specialist/program manager, and that this could be due to schizophrenia, a dementing illness, or the effects of medications, specifically benzodiazepines. He has not been sufficiently psychiatrically stable during the past 6 months to determine how much of his cognitive impairment is due to his thought disorder. This will require ongoing monitoring and assessment. There is not sufficient evidence at this time to make a diagnosis of dementia. 02/24 - Recommend continued outpatient neurology follow-up (3) Tobacco use disorder: 02/09 - pt expressed desire for nicotine patch 21mg a day but then refused when nurses offered it to him, pt refused nicotinate gum offered, pt expressed some interested in quitting smoking but is too psychotic to engage in smoking cessation at this time and will perform once more appropriate to do so 02/10 - been refusing nicotine patch to date, will continue to have offer at this time 02/17 -patient has consistently refused the patch, so we will discontinue it. Mental Health & Subst Abuse Tx Psychiatrist Name of Psychiatrist: Aleksandra - Intake Psychiatrist's Date of Appointment with Psychiatrist: 03/07/20 Time of Appointment with Psychiatrist: 11:00 a.m. Psychiatric Appointment Comment: [id number] [employer] Merline Gandara PA Therapist Name of Therapist: Aleksandra - Intake Therapist's Date of Therapist Appointment: 03/07/20 Time of Therapist Appointment: 11:00 a.m. Therapy Appointment Comment: [id number] [employer] Merline Gandara PA Surveillance Sensor Operator Name of Surveillance Sensor Operator: Shruti Mcbride Phone Number for Surveillance Sensor Operator: [phone] Case Management Appointment Comment: Will follow up with you at the [facility] Post Discharge Appointments Primary Care Physician Name Of Family Doctor: [facility] - Dr. Jeff Lopez Primary Care Time of Appointment with PCP: Follow up as needed Provider Appointment Comment: [address], [address], [place] [address] Smoking Cessation Counseling Tobacco Cessation Medication Prescribed at Discharge: Offered & Pt Refused (stepped down from nicotine replacement products over course of admission; not utilizing any replacement products for most of admission) Other #1: Name of Aftercare Appointment: JERRELL CRANER Phone Number of Aftercare Appointment: [phone] Aftercare Appointment Comment: [address] [place] [address] Contact Information Discharge Discharge [place]: [place] [address] Discharge Plan Discharge Items Patient Disposition: Home - Self-Care Reason For Visit: SCHIZOPHRENIA Discharge Diagnosis: - Schizophrenia Condition on Discharge: Good Activity: Resume your previous activity Non-emergency contact: Primary Care Provider, Psychiatrist, Therapist and Tow Truck Dispatcher Call non-emergency contact if: you have any medication questions and your symptoms worsen Follow-up/Referrals: Jeff Lopez MD [Primary Care Provider] - Diet: Vegetarian (Lacto-Ovo) Addtl Attending Provider Instructions: SPECIAL CARE INSTRUCTIONS: 1. Follow through with your scheduled aftercare appointments. If unable to keep an appointment, please call to reschedule. 2. Take your medication only as prescribed. Medication should not be changed or stopped without the approval of your doctor. In the event of worsening symptoms or concerns about side effects, contact your doctor immediately. 3. Utilize new healthy coping skills, anger management skills, and stress management skills learned during your hospitalization. Journal feelings and process them with a support person. Identify stressors or situations that may result in relapse, deterioration or inappropriate behaviors and develop a plan to deal with those issues. 4. If your coping skills are ineffective and you are in crisis, contact your outpatient providers for direction. If unable to reach your providers, please call the CAN HELP LINE AT or go to the closest Emergency Room. 5. Avoid alcohol and un-prescribed drugs. 6. You have been provided with the Mental Health Advance Directives Pamphlet for your review. AFTERCARE APPOINTMENTS: * Please call your insurance company prior to your scheduled appointment to confirm your aftercare providers are covered. Take your insurance information to your appointments. * You were started on Abilify Maintena - a long-acting injectable medication that is to be given every 4 weeks. Appointments to receive this injection may be separate from your regularly scheduled psychiatric appointments, coordinate with [facility] for scheduling. You will continue oral Abilify for 8 more days. WHO TO CALL AND WHEN: Medical Emergencies: For questions or emergencies related to your hospital stay, please contact the Inpatient Behavioral Health Unit at [phone]. A rolling mill operator helper is on-call 11/03 for the Behavioral Health Unit for emergencies At any time you feel your situation is an emergency, you may also call 911 immediately. Your Discharge Instructions noted above were prepared by provider Belinda Jones PA-C. Pending Studies at Discharge: No Stand-Alone Forms: My [facility], Smoking Cessation, Suicide Prevention Resources Medications and DC Order Prescriptions: New aripiprazole [Abilify] 10 mg Tablet 10 mg PO QAM Qty: 8 RF: 0 benztropine 0.5 mg Tablet 0.5 mg PO BID PRN (Reason: akathisia) Qty: 20 RF: 0 diazepam 5 mg Tablet 5 mg PO QAM Qty: 30 RF: 0 temazepam 7.5 mg Capsule 7.5 mg PO HSZ Qty: 30 RF: 0 docusate sodium 100 mg Capsule 100 mg PO BID PRN (Reason: constipation) Qty: 20 RF: 0 Abilify Maintena 300 mg suspension,extended rel recon 300 mg IM .q4 week Qty: 1 RF: 0 Discontinued docusate sodium 100 mg Capsule 100 mg PO BID RF: 0 aripiprazole [Abilify] 10 mg Tablet 10 mg PO HS Qty: 30 RF: 0 diazepam 5 mg Tablet 5 mg PO BID Qty: 20 RF: 0 Discharge Orders: Discharge Order (Routine); Ordered 03/01/20 Ordered By: Belinda Jones Admission Data Admit Date/Time: 02/09/20 21:03 Attending Provider: Alison Campos Admit Provider: Katina Andrews Primary Care Provider: Jeff Lopez Other Interventions: PSY Interdisciplinary Discharge Planning Last Done: 03/01/20 09:12 Coding Level of Care Code 54502 D/C day mgmt > 30 min Diagnoses Schizophrenia F20.9 Schizophrenia type: unspecified Memory changes R41.3 Tobacco use disorder F17.200
[2020-03-24] MEDS ORDERED: ARIPIPRAZOLE 400 MG KIT IM ONE (09:00)
== END 2020-03-01 10:55 | disposition home or self-care (01) | DRG 885 ==
LOC: ED 11:45 → 3S 20:50 → SUATTDRO 21:03 → 3S 02-19 12:57

== ENCOUNTER 2021-06-26 17:28 | Inpatient (IN) ==
--- NOTE | 2021-06-26 17:57 | Emergency Department Note ---
Impression & Plan Suicidal ideation, Schizophrenia, Auditory hallucinations, Acute UTI (urinary tract infection) ED Provider Note Name: SCOTT ROBERTO Age: 76 Sex: M Arrives Via: Ambulance Informant: Patient, EMS ED Provider: Dex Kennedy MD Chief Complaint: Hallucinations Impression: As Per Impressions Above Medical Decision Making: Pleasant 76 yr old male with long history of schizophrenia arrives with 2 weeks worsening auditory hallucinations with non-command voices. He is awake, alert, oriented and stating he is worried he will kill himself if he stays at home alone any longer and is requesting psychiatric admission. Psychiatric work-up including CT head obtained which are unremarkable other than bacteria in urine. I do not feel that UTI is primary cause of this patient's worsening psychosis, but I do feel it is reasonable to treat with ABX and thus keflex given. He is stable, cooperated and in no distress during stay. Accepted to [address] [place] [address] for further management. Prior Medical Record and Triage/Nursing Notes reviewed by Me Additional history obtained from chart Differentials:Mood disorder, infection, hypoglycemia, electrolyte abnormalities, cardiac sources, intracerebral event, toxicologic, trauma, neurol ogic, as well as other pathologies. Vital Signs: reviewed and remarkable for no significant abnormalities Interventions: keflex 500mg po, evening medications Labs:Reviewed and remarkable for no significant abnormalities Imaging:Radiologist interpretation reviewed by me: ct head: no acute findings EKG:Per My Interpretation: Indication Acute Psychosis: NSR 76 bpm, qtc 441. Occasional PVC. No Ischemia. Compared to EKG , no significant changes. Consults:Mental Health Case Management - Accepted to [address] [place] [address] on 201 basis Plan: Disposition:Hospitalization. Condition: Good History of Present Illness:76 yr old male arrives for evaluation of suicidal ideation. Patient with 25 yr history of depression and schizophrenia with frequent hospitalizations. He notes chronic buzzing in his ears for years. Over the last 2 weeks the voices in his head have been gradually increasing. They are not saying anything in particular not telling him to do anything but he notes they are making him more and more agitated. States he started thinking of killing himself over the last few days. He is worried he may try killing himself tonight. He called 911 and was brought in by ems. States he is taking his daily medications. No attempts at harming self thus far. Denies trauma, injuries, falls. Nothing makes better nor worse. No recent medication changes. No headache, neck pain, chest pain, sob, back pain, abdominal pain, leg swelling, rashes, nausea, vomiting, nor other symptomt. ROS: See above HPI for pertinent positives & negatives. A total of 10 systems reviewed and were otherwise negative. Past Medical History:See Below Past Surgical History:See Below Family History:See Below Social History:See Below Home Medications:See Below Allergies:NKDA Vitals:Blood Pressure: 147/91, Pulse 79, RR 15, T 36.9C, O2 97% on RA Physical Exam: GENERAL: Patient is elderly appearing and in mild distress. EYES: No scleral icterus, unremarkable pupils. ENT: Mucous membranes moist, no nasal congestion. NECK: No masses appreciated, nomeningismus, trachea is midline. RESPIRATORY: No dyspnea. Clear to auscultation and equal bilaterally. No wheeze, no rhonchi. CARDIOVASCULAR: Regular rate and rhythm.No murmurs, rubs, gallops appreciated. GASTROINTESTINAL: Abdomen soft, non-tender, no peritonitis.Bowel sounds positive.No masses appreciated. BACK: No midline tenderness, no CVA tenderness EXTREMITIES: Normal motion all extremities, no cyanosis, no edema. NEUROLOGIC: Alert and oriented, no acute motor or sensory deficits, no focal weakness, cranial nerves grossly intact. SKIN: No rash, no jaundice, no diaphoresis. PSYCH: Admits depression, mildly anxious, admits hearing voices, admits suicidal ideation GCS: 15 ED Course: Times/Reassessments: stable, cooperative, no distress Dex Kennedy MD Past Med/Surg History Medical History Benzodiazepine abuse Closed head injury Fall Hypertension Hypokalemia Leukocytosis (08/14/13) Rhabdomyolysis (07/21/13) Scalp laceration Schizophrenia Tobacco use disorder Surgical History No pertinent past surgical history Family History (Updated 03/28/21 @ 15:03 by Caro Domínguez RN) Father Cancer Mother Cancer Other No pertinent family history Denies family history of Hearing loss No family history of adverse response to anesthesia No family history of bleeding disorder Heart disease Allergies Hypertension Stroke Asthma Social History (Updated 03/28/21 @ 15:05 by Caro Domínguez RN) Smoking Status: Former smoker Tobacco Type: Cigarettes packs per day: 1; Hx Alcohol Use: No Hx Substance Use: No Preferred Language: Citizen Of [place] Communication Ability: Effective Visual Impairment: No Limitations Hearing Ability: Normal Brake Mechanic Required: No Beliefs That Will Affect Care: None marital status: Single Current Living Situation: Alone current occupational status: retired Feels Safe at Home: Yes Assistive Devices: None Allergies Allergies Allergy/AdvReac Type Severity Reaction Status Date / Time No Known Allergies Allergy Verified 06/26/21 17:56 Home Meds Home Medications Medication Instructions Recorded Confirmed temazepam 15 mg capsule 15 mg PO HS 10/25/20 06/26/21 aripiprazole 300 mg suspension, 300 mg IM MONTHLY 06/26/21 06/26/21 extended rel. intramuscular syringe (Madie Angelozahraa) diazepam 5 mg tablet 5 mg PO HS 06/26/21 06/26/21 Results & Data (ED) Vital Signs Vital Signs - 24 hr 06/26/21 17:41 06/26/21 22:00 06/26/21 22:29 Temperature 36.9 C 36.7 C 36.7 C Temperature Source Oral Oral Oral Pulse Rate 79 86 Pulse Rate [Radial] 86 Respiratory Rate 15 18 18 Respiratory Effort / Characteristics Non-Labored Blood Pressure 147/91 H 130/79 Blood Pressure [Left Arm] 130/79 Blood Pressure Mean 109 Blood Pressure Mean [Left Arm] 96 Pulse Oximetry 97 93 93 Oxygen Delivery Method Room Air Room Air Room Air Sepsis Recent Fever Within 48 Hours No Sepsis New/Unexplained Change in Mental Status No Sepsis Action Taken by Nursing No Action Required Laboratory Data Result diagrams: 06/26/21 18:13 06/26/21 18:13 Lab Results 06/26/21 06/26/21 06/26/21 Range/Units 17:43 17:43 18:02 WBC (4.8-10.8) K/uL RBC (4.7-6.1) M/uL Hgb (14.0-18.0) g/dL Hct (42-52) % MCV (80-100) fL MCH (25-34) pg MCHC (32-36) g/dL RDW Std Deviation (36.4-46.3) fL RDW Coeff of Namita (11.5-14.5) % Plt Count (130-400) K/uL MPV (7.4-10.4) fL Immature Gran % (Auto) % Neut % (Auto) % Lymph % (Auto) % [place] % (Auto) % Eos % (Auto) % Baso % (Auto) % Neut # (Auto) (1.4-6.5) K/uL Lymph # (Auto) (1.2-3.4) K/uL [place] # (Auto) (0.11-0.59) K/uL Eos # (Auto) (0-0.5) K/uL Baso # (Auto) (0-0.2) K/uL Immature Gran # (Auto) (0.00-0.02) K/uL Sodium (136-145) mmol/L Potassium (3.5-5.1) mmol/L Chloride (98-107) mmol/L Carbon Dioxide (21-32) mmol/L Anion Gap (3-11) BUN (7-18) mg/dl Creatinine (0.6-1.4) mg/dl Est Cr Clr Drug Dosing ml/min Est GFR ( Amer) ml/min Est GFR (Non-Af Amer) ml/min BUN/Creatinine Ratio (10-20) Glucose (70-99) mg/dl Calcium (8.5-10.1) mg/dl Total Bilirubin (0.2-1) mg/dl AST (15-37) U/L ALT (12-78) U/L Alkaline Phosphatase (45-117) U/L Total Protein (6.4-8.2) gm/dl Albumin (3.4-5.0) gm/dl Globulin (2.5-4.0) gm/dl Albumin/Globulin Ratio (0.9-2) TSH (0.300-4.500) uIu/ml Urine Color Yellow Urine Appearance Cloudy A (Clear) Urine pH 7.0 (4.5-7.5) Ur Specific [place] 1.015 (1.000-1.030) Urine Protein Trace H (Negative) Urine Glucose (UA) Negative (Negative) Urine Ketones Negative (Negative) Urine Blood 1+ H (Negative) Urine Nitrite Positive A (Negative) Urine Bilirubin Negative (Negative) Urine Urobilinogen Negative (Negative) Ur Leukocyte Esterase 3+ H (Negative) Urine WBC (Auto) >30 H (0-5) /hpf Urine RBC (Auto) 5-10 H (0-4) /hpf U Hyaline Cast (Auto) 1-5 (0-5) /lpf U Epithel Cells (Auto) 5-10 H (0-5) /lpf Urine Bacteria (Auto) 2+ H (Negative) Calcium Oxalate Crystal Present A (None Prsent) Urine Yeast Not Reportable Salicylates (2.8-20) mg/dl Urine Opiates Screen Neg (Neg) Ur Methadone, Qual Neg (Neg) Acetaminophen (10-30) ug/ml Urine Barbiturates Neg (Neg) Ur Phencyclidine (PCP) Neg (Neg) U Amphetamin/Meth Scrn Neg (Neg) MDMA (Ecstasy) Screen Neg (Neg) U Benzodiazepines Scrn Pos H (Neg) Ur Cocaine Metabolite Neg (Neg) U Marijuana (THC) Screen Neg (Neg) Ethyl Alcohol mg/dL (0-3) mg/dl COVID-19 Eval Order Covid19 at [facility] SARS-CoV-2 (PCR) (Negative) 06/26/21 06/26/21 06/26/21 Range/Units 18:02 18:13 18:13 WBC 8.75 (4.8-10.8) K/uL RBC 4.54 L (4.7-6.1) M/uL Hgb 14.2 (14.0-18.0) g/dL Hct 42.5 (42-52) % MCV 93.6 (80-100) fL MCH 31.3 (25-34) pg MCHC 33.4 (32-36) g/dL RDW Std Deviation 44.6 (36.4-46.3) fL RDW Coeff of Namita 13.1 (11.5-14.5) % Plt Count 282 (130-400) K/uL MPV 9.0 (7.4-10.4) fL Immature Gran % (Auto) 0.2 % Neut % (Auto) 73.4 % Lymph % (Auto) 15.1 % [place] % (Auto) 9.4 % Eos % (Auto) 1.6 % Baso % (Auto) 0.3 % Neut # (Auto) 6.42 (1.4-6.5) K/uL Lymph # (Auto) 1.32 (1.2-3.4) K/uL [place] # (Auto) 0.82 H (0.11-0.59) K/uL Eos # (Auto) 0.14 (0-0.5) K/uL Baso # (Auto) 0.03 (0-0.2) K/uL Immature Gran # (Auto) 0.02 (0.00-0.02) K/uL Sodium 137 (136-145) mmol/L Potassium 3.1 L (3.5-5.1) mmol/L Chloride 103 (98-107) mmol/L Carbon Dioxide 29 (21-32) mmol/L Anion Gap 5.0 (3-11) BUN 13 (7-18) mg/dl Creatinine 0.95 (0.6-1.4) mg/dl Est Cr Clr Drug Dosing 62.8 ml/min Est GFR ( Amer) 90.4 ml/min Est GFR (Non-Af Amer) 78.0 ml/min BUN/Creatinine Ratio 14.2 (10-20) Glucose 107 H (70-99) mg/dl Calcium 8.9 (8.5-10.1) mg/dl Total Bilirubin 0.5 (0.2-1) mg/dl AST 16 (15-37) U/L ALT 28 (12-78) U/L Alkaline Phosphatase 113 (45-117) U/L Total Protein 7.2 (6.4-8.2) gm/dl Albumin 3.2 L (3.4-5.0) gm/dl Globulin 4.0 (2.5-4.0) gm/dl Albumin/Globulin Ratio 0.8 L (0.9-2) TSH 0.999 (0.300-4.500) uIu/ml Urine Color Urine Appearance (Clear) Urine pH (4.5-7.5) Ur Specific [place] (1.000-1.030) Urine Protein (Negative) Urine Glucose (UA) (Negative) Urine Ketones (Negative) Urine Blood (Negative) Urine Nitrite (Negative) Urine Bilirubin (Negative) Urine Urobilinogen (Negative) Ur Leukocyte Esterase (Negative) Urine WBC (Auto) (0-5) /hpf Urine RBC (Auto) (0-4) /hpf U Hyaline Cast (Auto) (0-5) /lpf U Epithel Cells (Auto) (0-5) /lpf Urine Bacteria (Auto) (Negative) Calcium Oxalate Crystal (None Prsent) Urine Yeast Salicylates (2.8-20) mg/dl Urine Opiates Screen (Neg) Ur Methadone, Qual (Neg) Acetaminophen (10-30) ug/ml Urine Barbiturates (Neg) Ur Phencyclidine (PCP) (Neg) U Amphetamin/Meth Scrn (Neg) MDMA (Ecstasy) Screen (Neg) U Benzodiazepines Scrn (Neg) Ur Cocaine Metabolite (Neg) U Marijuana (THC) Screen (Neg) Ethyl Alcohol mg/dL (0-3) mg/dl COVID-19 Eval Order SARS-CoV-2 (PCR) NEGATIVE (Negative) 06/26/21 06/26/21 Range/Units 18:13 18:13 WBC (4.8-10.8) K/uL RBC (4.7-6.1) M/uL Hgb (14.0-18.0) g/dL Hct (42-52) % MCV (80-100) fL MCH (25-34) pg MCHC (32-36) g/dL RDW Std Deviation (36.4-46.3) fL RDW Coeff of Namita (11.5-14.5) % Plt Count (130-400) K/uL MPV (7.4-10.4) fL Immature Gran % (Auto) % Neut % (Auto) % Lymph % (Auto) % [place] % (Auto) % Eos % (Auto) % Baso % (Auto) % Neut # (Auto) (1.4-6.5) K/uL Lymph # (Auto) (1.2-3.4) K/uL [place] # (Auto) (0.11-0.59) K/uL Eos # (Auto) (0-0.5) K/uL Baso # (Auto) (0-0.2) K/uL Immature Gran # (Auto) (0.00-0.02) K/uL Sodium (136-145) mmol/L Potassium (3.5-5.1) mmol/L Chloride (98-107) mmol/L Carbon Dioxide (21-32) mmol/L Anion Gap (3-11) BUN (7-18) mg/dl Creatinine (0.6-1.4) mg/dl Est Cr Clr Drug Dosing ml/min Est GFR ( Amer) ml/min Est GFR (Non-Af Amer) ml/min BUN/Creatinine Ratio (10-20) Glucose (70-99) mg/dl Calcium (8.5-10.1) mg/dl Total Bilirubin (0.2-1) mg/dl AST (15-37) U/L ALT (12-78) U/L Alkaline Phosphatase (45-117) U/L Total Protein (6.4-8.2) gm/dl Albumin (3.4-5.0) gm/dl Globulin (2.5-4.0) gm/dl Albumin/Globulin Ratio (0.9-2) TSH (0.300-4.500) uIu/ml Urine Color Urine Appearance (Clear) Urine pH (4.5-7.5) Ur Specific [place] (1.000-1.030) Urine Protein (Negative) Urine Glucose (UA) (Negative) Urine Ketones (Negative) Urine Blood (Negative) Urine Nitrite (Negative) Urine Bilirubin (Negative) Urine Urobilinogen (Negative) Ur Leukocyte Esterase (Negative) Urine WBC (Auto) (0-5) /hpf Urine RBC (Auto) (0-4) /hpf U Hyaline Cast (Auto) (0-5) /lpf U Epithel Cells (Auto) (0-5) /lpf Urine Bacteria (Auto) (Negative) Calcium Oxalate Crystal (None Prsent) Urine Yeast Salicylates < 1.7 L (2.8-20) mg/dl Urine Opiates Screen (Neg) Ur Methadone, Qual (Neg) Acetaminophen < 2 L (10-30) ug/ml Urine Barbiturates (Neg) Ur Phencyclidine (PCP) (Neg) U Amphetamin/Meth Scrn (Neg) MDMA (Ecstasy) Screen (Neg) U Benzodiazepines Scrn (Neg) Ur Cocaine Metabolite (Neg) U Marijuana (THC) Screen (Neg) Ethyl Alcohol mg/dL < 3.0 (0-3) mg/dl COVID-19 Eval Order SARS-CoV-2 (PCR) (Negative) Administered Medications Diazepam (Diazepam 5 Mg Tablet) 5 mg PO HS MAG Stop: 07/26/21 20:59 Last Admin: 06/26/21 21:51 Dose: 5 mg Documented by: [id number] Temazepam (Temazepam 15 Mg Capsule) 15 mg PO HS MAG Stop: 07/26/21 20:59 Last Admin: 06/26/21 21:51 Dose: 15 mg Documented by: [id number] Discontinued Medications Cephalexin HCl (Cephalexin 250 Mg Cap) 500 mg PO NOW ONE Stop: 06/26/21 19:10 Last Admin: 06/26/21 19:50 Dose: 500 mg Documented by: [id number] Imaging Data Radiologist's Impression: Head CT 06/26/21 17:52 CT head/brain wo con CLINICAL HISTORY: acute suicidal ideation Technique: Contiguous axial CT images of the head were acquired from the base of the skull to the vertex without intravenous contrast administration. Images were viewed in brain, subdural and bone windows. Automated dose lowering techniques and/or adjustment according to patient size were utilized for this exam. Comparison: Comparison is made to CT head 10/08/2019 Findings: Areas of decreased attenuation are present in the periventricular and subcortical white matter bilaterally consistent with small vessel ischemic disease. Generalized cerebral atrophy with commensurate enlargement of the ventricles, sulci, and cisterns is also present. There is no acute intracranial hemorrhage or evidence of acute territorial infarction. No shift of the midline structures, mass effect, or extra-axial abnormalities are shown. Atherosclerotic calcifications are present in the intracranial segments of the internal carotid arteries. Imaged portions of the paranasal sinuses and mastoid air cells are clear. The orbits appear normal. There are no acute fractures of the calvaria or scalp swelling. Impression: No acute intracranial hemorrhage, no evidence of acute territorial infarction or other acute intracranial disease process. ACT 112: Negative or not required by law. Electronically signed by: Lee Li M.D. 06/26/2021 6:32 PM Discharge Plan Visit Data Chief Complaint: Mental Health Evaluation Stated Complaint: [facility] ED Provider: Dex Kennedy Discharge Problem: Suicidal ideation, Schizophrenia, Auditory hallucinations, Acute UTI (urinary tract infection) Discharge Instructions Interventions: ED Discharge Assessment Last Done: 06/26/21 22:29 Forms Stand Alone Forms: [facility], Suicide Prevention Resources Prescriptions Prescriptions: No Action Abilify Maintena 300 mg Suspension,Extended Rel Syring 300 mg IM MONTHLY RF: 0 diazepam 5 mg tablet 5 mg PO HS RF: 0 temazepam 15 mg capsule 15 mg PO HS RF: 0 Referrals Referrals: Jeff Lopez MD [Primary Care Provider] - Discharge Problem: Schizophrenia Qualifiers: Schizophrenia type: other Qualified Code(s): F20.89 - Other schizophrenia
[2021-06-26 18:02] LABS: Appearance Urine Cloudy (Clear); Bacteria Urine Automated 2+ (Negative); Bilirubin Urine Negative (Negative); Blood Urine 1+ (Negative); Color Urine Yellow; Glucose Urine UA Negative (Negative); Ketones Urine Negative (Negative); Leukocyte Esterase Urine 3+ (Negative); Nitrite Urine Positive (Negative); Protein Urine Trace (Negative); Specific Gravity Urine 1.015 (1.000-1.030); Urobilinogen Urine Negative (Negative); WBC Urine Automated >30 /hpf (0-5)
[2021-06-26 18:15] LABS: Calcium Oxalate Crystals Urine Present (None Prsent)
[2021-06-26 18:24] LABS: Basophils # (auto) 0.03 K/uL (0-0.2); Basophils % (auto) 0.3 %; Eosinophils # (auto) 0.14 K/uL (0-0.5); Eosinophils % (auto) 1.6 %; Hematocrit (blood only) 42.5 % (42-52); Hemoglobin 14.2 g/dL (14.0-18.0); Immature Granulocytes # (auto) 0.02 K/uL (0.00-0.02); Immature Granulocytes % (auto) 0.2 %; Lymphocytes # (auto) 1.32 K/uL (1.2-3.4); Lymphocytes % (auto) 15.1 %; Mean Corpuscular Hemoglobin 31.3 pg (25-34); Mean Corpuscular Hgb Conc 33.4 g/dL (32-36); Mean Corpuscular Volume 93.6 fL (80-100); Monocytes # (auto) 0.82 K/uL (0.11-0.59); Monocytes % (auto) 9.4 %; Neutrophils # (auto) 6.42 K/uL (1.4-6.5); Neutrophils % (auto) 73.4 %; Platelet Count 282 K/uL (130-400); RDW Coefficient of Variation 13.1 % (11.5-14.5); RDW Standard Deviation 44.6 fL (36.4-46.3); Red Blood Count 4.54 M/uL (4.7-6.1); White Blood Count 8.75 K/uL (4.8-10.8)
[2021-06-26 18:31] LABS: Amphetamines+Metham, Urine Neg (Neg); Barbiturates, Urine Neg (Neg); Benzodiazepine, Urine Pos (Neg); Cocaine, Urine Neg (Neg); MDMA (Ecstacy), Urine Neg (Neg); Methadone, Urine Neg (Neg); Opiate, Urine Neg (Neg); Phencyclidine, Urine Neg (Neg)
--- NOTE | 2021-06-26 18:33 | CT Scan Report ---
CT head/brain wo con CLINICAL HISTORY: acute suicidal ideation Technique: Contiguous axial CT images of the head were acquired from the base of the skull to the andry elsa without intravenous contrast administration. Images were viewed in brain, subdural and bone [facility] . Automated dose lowering techniques and/or adjustment according to patient size were utilized for this exam. Comparison: Comparison is made to CT head 10/08/2019 Findings: Areas of decreased attenuation are present in the periventricular and subcortical white matter bilate rally consistent with small vessel ischemic disease. Generalized cerebral atrophy with commensurate e nlargement of the ventricles, sulci, and cisterns is also present. There is no acute intracranial hem orrhage or evidence of acute territorial infarction. No shift of the midline structures, mass effect, or extra-axial abnormalities are shown. Atherosclerotic calcifications are present in the intracran ial segments of the internal carotid arteries. Imaged portions of the paranasal sinuses and mastoid air cells are clear. The orbits appear normal. There are no acute fractures of the calvaria or scalp swelling. Impression: No acute intracranial hemorrhage, no evidence of acute territorial infarction or other acute intracra nial disease process. ACT 112: Negative or not required by law. Electronically signed by: Lee Li M.D. 06/26/2021 6:32 PM
[2021-06-26 18:53] LABS: Acetaminophen < 2 ug/ml (10-30); Salicylate < 1.7 mg/dl (2.8-20)
[2021-06-26 18:58] LABS: Albumin Level 3.2 gm/dl (3.4-5.0); BUN Creatinine Ratio 14.2 (10-20); Calcium 8.9 mg/dl (8.5-10.1); Creatinine Clr Calc Pharmacy 62.8 ml/min; Est GFR (African American) 90.4 ml/min; Potassium 3.1 mmol/L (3.5-5.1)
[2021-06-26 19:02] LABS: Albumin Globulin Ratio 0.8 (0.9-2); Bilirubin,Total 0.5 mg/dl (0.2-1); Thyroid Stimulating Hormone 0.999 uIu/ml (0.300-4.500); Total Protein 7.2 gm/dl (6.4-8.2)
[2021-06-26] MEDS ORDERED: cephALEXin 250 MG CAP PO ONE (19:09)
[2021-06-26] MEDS ORDERED: diazePAM 5 MG TABLET PO SCH (21:00)
[2021-06-26] MEDS ORDERED: TEMAZEPAM 15 MG CAPSULE PO SCH (21:00)
[2021-06-26] MEDS ORDERED: ACETAMINOPHEN 325 MG TAB PO PRN (22:02)
[2021-06-26] MEDS ORDERED: ALUMINUM/MAGNESIUM SUSP 30 ML UDC PO PRN (22:02)
[2021-06-26] MEDS ORDERED: SODIUM CHLORIDE 0.65% NA SOLN 45 ML (OCEAN) PRN (22:02)
[2021-06-26] MEDS ORDERED: BISMUTH SUBSALICYLATE LIQD 236 ML PO PRN (22:02)
[2021-06-26] MEDS ORDERED: hydrOXYzine HCl 25 MG TAB PO PRN ×2 (22:02)
[2021-06-26] MEDS ORDERED: MAGNESIUM HYDROXIDE SUSP 30 ML UDC PO PRN (22:02)
[2021-06-26] MEDS ORDERED: haloperidoL 5 MG TAB PO PRN (22:07)
[2021-06-27] MEDS ORDERED: POTASSIUM CHLORIDE CRTAB 20 MEQ TABCR PO ONE (08:30)
[2021-06-27] MEDS: cephALEXin 500 MG CAP PO SCH ×2 (09:10→20:59)
--- NOTE | 2021-06-27 13:33 | Electrocardiogram Report ---
Test Reason : Blood Pressure : / mmHG Vent. Rate : 076 BPM Atrial Rate : 076 BPM P-R Int : 198 ms QRS Dur : 106 ms QT Int : 392 ms P-R-T Axes : 043 011 043 degrees QTc Int : 441 ms Sinus rhythm with occasional Premature ventricular complexes Otherwise normal ECG When compared with ECG of 22-OCT-2019 07:30, Premature ventricular complexes are now Present Confirmed by Jeff Larose ([id number]) on 06/27/2021 1:33:21 PM Referred By: REFERRED SELF Confirmed By:Jeff Larose
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
[2021-06-27] MEDS: diazePAM 2 MG TABLET PO SCH (18:38)
[2021-06-27] MEDS: TEMAZEPAM 15 MG CAPSULE PO SCH (20:59)
[2021-06-27] MEDS: diazePAM 5 MG TABLET PO SCH (21:00)
--- NOTE | 2021-06-28 06:38 | Psychiatric Progress Note ---
Date of Service June 28, 2021 Impression / Recommendations Impression 76 yo male with longstanding reliance on benzodiazepine to manage anxiety around auditory angeles, is refusing antipsychotics at this time given paranoia around Abilify injection. Ongoing SI due to auditory angeles. MNPR given psychosis, hx of not staying clothed and urinating in room, current paranoia. 06/28/21: seems calmer in the structure of the unit (1) Schizophrenia: (2) Acute UTI (urinary tract infection): (3) Hypokalemia: 06/28/21: reviewed last metabolic labs, repeat K and fasting labs ordered for am. Monitor on current meds as just increased Valium. Patient is now agreeable to continue Abilify FARAH but changes mind a lot based on delusions. 06/27/21: [facility] on q15 min checks (behavioral with suicide precautions) for safety. The patient will participate in group, recreational, and milieu therapies and will be offered additional individual and family sessions as clinically approp riapushpa. Replete K. Continue course of Keflex pending culture. Will add low dose of Valium throughout day as comfort measure for now. Protective Factors Assessment Employed: No Interval History Identifying Information Jamie is a 76-year-old M admitted on 06/26/21 22:41 on a 201 voluntary commitment for suicidal ideation in the context of hallucinations. Chief Complaint "yeah, I guess I'll take the Abilify still but it really doesn't do anything". Review of Systems Sleep Information Total Hours of Sleep: 6.5 Sleep Comments: pt on q-15 minute checks Meal Information Percent Meal Consumed - Breakfast: 100 Percent Meal Consumed - Lunch: 100 Percent Meal Consumed - Dinner: 100 Subjective Subjective Patient was seen & assessed and interval progress reviewed with treatment team. Reviewed with patient that Abilify has seemed to help his depression in the past and he has been out of the hospital for some time. Reviewed records from [facility]. Patient is prescribed a daytime dose of Valium by Dr. Pizarro but seemed unaware and also Effexor which "I never started that as I'm not depressed." Physical Exam Psychiatric Orientation: alert and oriented x 3 Apperance: appropriately dressed and appropriately groomed Eye Contact: + fair eye contact Motor Behavior: no abnormal motor movements Speech: normal rate/rhythm/volume of speech Affect: + depressed affect Mood: + depressed mood Thought Process: + concrete thought process Thought Content: + paranoid and + delusions Suicidal Thoughts: denies suicidal thoughts Homicidal Thoughts: denies homicidal thoughts Hallucinations: + auditory hallucinations (improved, "they just talk about my thoughts"); no visual hallucinations Cognition: language grossly intact; + attention not intact Estimated Intelligence: consistent with education level Insight: + limited insight Judgement: + limited judgement Vital Signs (Past 24 Hours) Last Vital Signs Temp 36.4 C L 06/28/21 06:25 Pulse 73 06/28/21 06:26 Resp 16 06/28/21 06:25 BP 137/80 06/28/21 06:26 Pulse Ox 93 06/26/21 22:29 Results & Data ([facility]) Current Inpatient Medications Current Inpatient Medications: Current Inpatient Medications Acetaminophen (Acetaminophen 325 Mg Tab) 650 mg PO Q4H PRN PRN Reason: Headache or Minor Fever Stop: 07/26/21 22:01 Al Hydrox/Mg Hydrox/Simethicone (Aluminum/Magnesium Susp 30 Ml Udc) 30 ml PO Q4H PRN PRN Reason: GI Upset Stop: 07/26/21 22:01 Bismuth Subsalicylate (Bismuth Subsalicylate Liqd 236 Ml) 15 ml PO PRN PRN PRN Reason: Loose Stool Stop: 07/26/21 22:01 Cephalexin HCl (Cephalexin 500 Mg Cap) 500 mg PO BID MAG Stop: 07/01/21 09:01 Last Admin: 06/27/21 20:59 Dose: 500 mg Documented by: Diazepam (Diazepam 5 Mg Tablet) 5 mg PO HS MAG Stop: 07/27/21 20:59 Last Admin: 06/27/21 21:00 Dose: 5 mg Documented by: Diazepam (Diazepam 2 Mg Tablet) 2 mg PO BIDM MAG Stop: 07/27/21 17:44 Last Admin: 06/27/21 18:38 Dose: 2 mg Documented by: Haloperidol (Haloperidol 5 Mg Tab) 5 mg PO Q4 PRN PRN Reason: Agitation Stop: 07/27/21 00:00 Hydroxyzine HCl (Hydroxyzine Hcl 25 Mg Tab) 50 mg PO HSZ PRN PRN Reason: Insomnia Stop: 07/26/21 22:01 Hydroxyzine HCl (Hydroxyzine Hcl 25 Mg Tab) 25 mg PO Q4H PRN PRN Reason: Anxiety Stop: 07/26/21 22:01 Magnesium Hydroxide (Magnesium Hydroxide Susp 30 Ml Udc) 30 ml PO DAILY PRN PRN Reason: Constipation Stop: 07/26/21 22:01 Sodium Chloride (Sodium Chloride 0.65% Na Soln 45 Ml ([place])) 1 - 2 sprays NA PRN PRN PRN Reason: Nasal Dryness/Congestion Stop: 07/26/21 22:01 Temazepam (Temazepam 15 Mg Capsule) 15 mg PO HS MAG Stop: 07/27/21 20:59 Last Admin: 06/27/21 20:59 Dose: 15 mg Documented by: Mental Health & Subst Abuse Tx Psychiatrist Name of Psychiatrist: Aleksandra Pizarro Senior Sql Developer Name of Senior Sql Developer: Shruti Boyle Phone Number for Senior Sql Developer: [phone] Post Discharge Appointments Primary Care Physician Name Of Family Doctor: [facility] - Dr. Jeff Lopez Contact Information Discharge Discharge Address: [address] [place] [address], [address] [address] (1) Schizophrenia Schizophrenia type: other Qualified Code(s): F20.89 - Other schizophrenia
[2021-06-28] MEDS: cephALEXin 500 MG CAP PO SCH ×2 (09:13→21:20)
[2021-06-28] MEDS: diazePAM 2 MG TABLET PO SCH ×2 (09:13→17:22)
[2021-06-28] MEDS: diazePAM 5 MG TABLET PO SCH (21:19)
[2021-06-28] MEDS: TEMAZEPAM 15 MG CAPSULE PO SCH (21:19)
[2021-06-28 21:51] LABS: 7-Aminoclonaz, Confirm NEGATIVE ng/mL (<25); Hydro-Alp Ur, GC/MS NEGATIVE ng/mL (<25); Hydroxyethylflurazepam, Conf NEGATIVE ng/mL (<50); Hydroxymidazolam Ur, GC/MS NEGATIVE ng/mL (<50); Hydroxytriazolam NEGATIVE ng/mL (<50); Lorazepam, Ur GC/MS NEGATIVE ng/mL (<50); Nordiazepam, Confirm 752 ng/mL (<50); Oxazepam Ur, GC/MS >2000 ng/mL (<50); Temazepam, Confirm >2000 ng/mL (<50)
[2021-06-29] MEDS: cephALEXin 500 MG CAP PO SCH ×2 (09:15→21:21)
[2021-06-29] MEDS: diazePAM 2 MG TABLET PO SCH ×2 (09:17→16:55)
[2021-06-29 10:30] LABS: Potassium 3.8 mmol/L (3.5-5.1)
--- NOTE | 2021-06-29 11:06 | Psychiatric Progress Note ---
Date of Service June 29, 2021 Impression / Recommendations Impression 76 yo male with longstanding reliance on benzodiazepine to manage anxiety around auditory angeles, is refusing antipsychotics at this time given paranoia around Abilify injection. Ongoing SI due to auditory angeles. MNPR given psychosis, hx of not staying clothed and urinating in room, current paranoia. 06/29/21: ongoing improvement. (1) Schizophrenia: (2) Acute UTI (urinary tract infection): 06/29/21: [facility] referral completed, fasting labs, hypokalemia resolved, no dysuria (culture was 3 organism, redo if symptomatic), will check hip films as limiting his activities. 06/28/21: reviewed last metabolic labs, repeat K and fasting labs ordered for am. Monitor on current meds as just increased Valium. Patient is now agreeable to continue Abilify FARAH but changes mind a lot based on delusions. 06/27/21: The patient was admitted to the [facility] ([facility]) on q15 min checks (behavioral with suicide precautions) for safety. The patient will participate in group, recreational, and milieu therapies and will be offered additional individual and family sessions as clinically appropriate. Replete K. Continue course of Keflex pending culture. Will add low dose of Valium throughout day as comfort measure for now. Protective Factors Assessment Employed: No Interval History Identifying Information Jamie is a 76-year-old M admitted on 06/26/21 22:41 on a 201 voluntary commitment for suicidal ideation in the context of hallucinations. Chief Complaint "I can go to the gym rather than PT, no wait I wasn't going". Review of Systems Sleep Information Total Hours of Sleep: 7 Sleep Comments: pt on q-15 minute checks Meal Information Percent Meal Consumed - Breakfast: 100 Percent Meal Consumed - Lunch: 100 Percent Meal Consumed - Dinner: 100 Subjective Subjective Patient was seen & assessed and interval progress reviewed with nursing and social work. Patient reports hallucinations still present. Met with CM. Agreed to referral to [facility] referral. Patient notes ongoing right hip pain for which he was referred to PT and possibly EMG. Physical Exam Psychiatric Orientation: alert and oriented x 3 Apperance: appropriately dressed and appropriately groomed Eye Contact: + fair eye contact Motor Behavior: no abnormal motor movements Speech: normal rate/rhythm/volume of speech Affect: + depressed affect Mood: + depressed mood Thought Process: + concrete thought process Thought Content: + delusions Suicidal Thoughts: denies suicidal thoughts Homicidal Thoughts: denies homicidal thoughts Hallucinations: + auditory hallucinations; no visual hallucinations Cognition: language grossly intact Estimated Intelligence: consistent with education level Insight: + limited insight Judgement: + limited judgement Vital Signs (Past 24 Hours) Last Vital Signs Temp 37 C 06/29/21 06:45 Pulse 85 06/29/21 06:46 Resp 16 06/29/21 06:45 BP 116/78 06/29/21 06:46 Pulse Ox 93 06/26/21 22:29 Results & Data ([facility]) Laboratory Results Laboratory Results - last 24 hr 06/26/21 06/29/21 17:43 09:15 Sodium 140 Potassium 3.8 Chloride 106 Carbon Dioxide 27 Anion Gap 7.0 Fasting Glucose 92 Triglycerides 111 Cholesterol 177 LDL Cholesterol, Calc 92 VLDL Cholesterol, Calc 22 HDL Cholesterol 63 Cholesterol/HDL Ratio 3 U OH-Alprazolam Confrm NEGATIVE 7-Amino Clonazepam NEGATIVE Ur Nordiazepam Confirm 752 H U OH-ethylflurazepam NEGATIVE U Lorazepam Cnf GC/MS NEGATIVE U Oxazepam Confm GC/MS >2000 H Ur Temazepam Confirm >2000 H U OH-Triazolam Confirm NEGATIVE U OH-Midazolam Confirm NEGATIVE Drug Screen Comment SEE NOTE Current Inpatient Medications Current Inpatient Medications: Current Inpatient Medications Acetaminophen (Acetaminophen 325 Mg Tab) 650 mg PO Q4H PRN PRN Reason: Headache or Minor Fever Stop: 07/26/21 22:01 Al Hydrox/Mg Hydrox/Simethicone (Aluminum/Magnesium Susp 30 Ml Udc) 30 ml PO Q4H PRN PRN Reason: GI Upset Stop: 07/26/21 22:01 Bismuth Subsalicylate (Bismuth Subsalicylate Liqd 236 Ml) 15 ml PO PRN PRN PRN Reason: Loose Stool Stop: 07/26/21 22:01 Cephalexin HCl (Cephalexin 500 Mg Cap) 500 mg PO BID MAG Stop: 07/01/21 09:01 Last Admin: 06/29/21 09:15 Dose: 500 mg Documented by: Diazepam (Diazepam 5 Mg Tablet) 5 mg PO HS MAG Stop: 07/27/21 20:59 Last Admin: 06/28/21 21:19 Dose: 5 mg Documented by: Diazepam (Diazepam 2 Mg Tablet) 2 mg PO BIDM MAG Stop: 07/27/21 17:44 Last Admin: 06/29/21 09:17 Dose: 2 mg Documented by: Haloperidol (Haloperidol 5 Mg Tab) 5 mg PO Q4 PRN PRN Reason: Agitation Stop: 07/27/21 00:00 Hydroxyzine HCl (Hydroxyzine Hcl 25 Mg Tab) 50 mg PO HSZ PRN PRN Reason: Insomnia Stop: 07/26/21 22:01 Hydroxyzine HCl (Hydroxyzine Hcl 25 Mg Tab) 25 mg PO Q4H PRN PRN Reason: Anxiety Stop: 07/26/21 22:01 Magnesium Hydroxide (Magnesium Hydroxide Susp 30 Ml Udc) 30 ml PO DAILY PRN PRN Reason: Constipation Stop: 07/26/21 22:01 Sodium Chloride (Sodium Chloride 0.65% Na Soln 45 Ml ([place])) 1 - 2 sprays NA PRN PRN PRN Reason: Nasal Dryness/Congestion Stop: 07/26/21 22:01 Temazepam (Temazepam 15 Mg Capsule) 15 mg PO HS MAG Stop: 07/27/21 20:59 Last Admin: 06/28/21 21:19 Dose: 15 mg Documented by: Mental Health & Subst Abuse Tx Psychiatrist Name of Psychiatrist: Aleksandra Pizarro Waiter Waitress Name of Waiter Waitress: Shruti Boyle Phone Number for Waiter Waitress: [phone] Post Discharge Appointments Primary Care Physician Name Of Family Doctor: [facility] - Dr. Jeff Lopez Contact Information Discharge Discharge Address: [address] [place] [address], [address] [address] (1) Schizophrenia Schizophrenia type: other Qualified Code(s): F20.89 - Other schizophrenia
[2021-06-29] MEDS: diazePAM 5 MG TABLET PO SCH (21:20)
[2021-06-29] MEDS: TEMAZEPAM 15 MG CAPSULE PO SCH (21:20)
[2021-06-30] MEDS: cephALEXin 500 MG CAP PO SCH ×2 (08:30→21:21)
[2021-06-30] MEDS: diazePAM 2 MG TABLET PO SCH ×2 (08:30→17:17)
--- NOTE | 2021-06-30 15:24 | Psychiatric Progress Note ---
Date of Service June 30, 2021 Impression / Recommendations Impression 76 yo male with longstanding reliance on benzodiazepine to manage anxiety around auditory angeles, is refusing antipsychotics at this time given paranoia around Abilify injection. Ongoing SI due to auditory angeles. MNPR given psychosis, hx of not staying clothed and urinating in room, current paranoia. 06/30/21: reports angeles but appears calm, misattributing his pain. (1) Schizophrenia: (2) Acute UTI (urinary tract infection): 06/30/21: d/c hip films, consider medicine consult but likely best addressed as outpatient given delusional component. Gait improved from admission and patient has repeatedly been told his Valium will not be increased further and daytime doses will be adjusted to prn if he starts driving again. 06/29/21: [facility] referral completed, fasting labs, hypokalemia resolved, no dysuria (culture was 3 organism, redo if symptomatic), will check hip films as limiting his activities. 06/28/21: reviewed last metabolic labs, repeat K and fasting labs ordered for am. Monitor on current meds as just increased Valium. Patient is now agreeable to continue Abilify FARAH but changes mind a lot based on delusions. 06/27/21: The patient was admitted to the [facility] ([facility]) on q15 min checks (behavioral with suicide precautions) for safety. The patient will participate in group, recreational, and milieu therapies and will be offered additional individual and family sessions as clinically appropriate. Replete K. Continue course of Keflex pending culture. Will add low dose of Valium throughout day as comfort measure for now. Protective Factors Assessment Employed: No Interval History Identifying Information Jamie is a 76-year-old M admitted on 06/26/21 22:41 on a 201 voluntary commitment for suicidal ideation in the context of hallucinations. Chief Complaint "I'm not depressed, my mood is a 3 due to pain, I need a muscle relaxer--Valium would help my pain". Review of Systems Sleep Information Total Hours of Sleep: 6 Sleep Comments: pt on q-15 minute checks Meal Information Percent Meal Consumed - Breakfast: 100 Percent Meal Consumed - Lunch: 100 Percent Meal Consumed - Dinner: 100 Subjective Subjective Patient was seen & assessed and interval progress reviewed with treatment team. Refused his X ray yesterday due to his concerns about impact of radiation on his testicles (patient was educated re: safety) and fact he believes the "german's" that injected him with botox caused a muscle problem and only wants a CT (and of course rx with Valium). Physical Exam Psychiatric Orientation: alert and oriented x 3 Apperance: appropriately dressed and appropriately groomed Eye Contact: + fair eye contact Motor Behavior: no abnormal motor movements Speech: normal rate/rhythm/volume of speech Mood: + depressed mood Thought Process: + concrete thought process Thought Content: + paranoid and + delusions Suicidal Thoughts: denies suicidal thoughts Homicidal Thoughts: denies homicidal thoughts Hallucinations: + auditory hallucinations; no visual hallucinations Cognition: language grossly intact Estimated Intelligence: consistent with education level Insight: + limited insight Judgement: + limited judgement Vital Signs (Past 24 Hours) Last Vital Signs Temp 36.7 C 06/30/21 06:00 Pulse 69 06/30/21 06:39 Resp 16 06/30/21 06:00 BP 121/64 06/30/21 06:39 Pulse Ox 93 06/26/21 22:29 Results & Data ([facility]) Current Inpatient Medications Current Inpatient Medications: Current Inpatient Medications Acetaminophen (Acetaminophen 325 Mg Tab) 650 mg PO Q4H PRN PRN Reason: Headache or Minor Fever Stop: 07/26/21 22:01 Al Hydrox/Mg Hydrox/Simethicone (Aluminum/Magnesium Susp 30 Ml Udc) 30 ml PO Q4H PRN PRN Reason: GI Upset Stop: 07/26/21 22:01 Bismuth Subsalicylate (Bismuth Subsalicylate Liqd 236 Ml) 15 ml PO PRN PRN PRN Reason: Loose Stool Stop: 07/26/21 22:01 Cephalexin HCl (Cephalexin 500 Mg Cap) 500 mg PO BID MAG Stop: 07/01/21 09:01 Last Admin: 06/30/21 08:30 Dose: 500 mg Documented by: Diazepam (Diazepam 5 Mg Tablet) 5 mg PO HS MAG Stop: 07/27/21 20:59 Last Admin: 06/29/21 21:20 Dose: 5 mg Documented by: Diazepam (Diazepam 2 Mg Tablet) 2 mg PO BIDM MAG Stop: 07/27/21 17:44 Last Admin: 06/30/21 08:30 Dose: 2 mg Documented by: Haloperidol (Haloperidol 5 Mg Tab) 5 mg PO Q4 PRN PRN Reason: Agitation Stop: 07/27/21 00:00 Hydroxyzine HCl (Hydroxyzine Hcl 25 Mg Tab) 50 mg PO HSZ PRN PRN Reason: Insomnia Stop: 07/26/21 22:01 Hydroxyzine HCl (Hydroxyzine Hcl 25 Mg Tab) 25 mg PO Q4H PRN PRN Reason: Anxiety Stop: 07/26/21 22:01 Magnesium Hydroxide (Magnesium Hydroxide Susp 30 Ml Udc) 30 ml PO DAILY PRN PRN Reason: Constipation Stop: 07/26/21 22:01 Sodium Chloride (Sodium Chloride 0.65% Na Soln 45 Ml ([place])) 1 - 2 sprays NA PRN PRN PRN Reason: Nasal Dryness/Congestion Stop: 07/26/21 22:01 Temazepam (Temazepam 15 Mg Capsule) 15 mg PO HS MAG Stop: 07/27/21 20:59 Last Admin: 06/29/21 21:20 Dose: 15 mg Documented by: Mental Health & Subst Abuse Tx Psychiatrist Name of Psychiatrist: Aleksandra Pizarro Psychiatrist's Date of Appointment with Psychiatrist: 07/10/21 Time of Appointment with Psychiatrist: 4:00pm (will also get Maintena during appt) Psychiatric Appointment Comment: [address] [place] [address] Receiving And Processing Supervisor Name of Receiving And Processing Supervisor: Shruti Boyle Phone Number for Receiving And Processing Supervisor: [phone] Date of Appointment with Receiving And Processing Supervisor: 07/06/21 Time of Appointment with Receiving And Processing Supervisor: 8:00 a.m. Case Management Appointment Comment: Will meet with you per your routine schedule Post Discharge Appointments Primary Care Physician Name Of Family Doctor: [facility] - Dr. Jeff Lopez Primary Care Date of Appointment with PCP: 07/11/21 Time of Appointment with PCP: 1:30 p.m. Provider Appointment Comment: [address], [address], [place] [address] Partial or Psych Rehab Name of Partial or Psych Rehab: [facility] Phone Number of Partial or Psych Rehab: [phone] Time of Appointment at Partial or Psych Rehab: Referral submitted on 06/29 Partial or Psych Rehab Appointment Comment: [address], [address], [place] [address] Contact Information Discharge Discharge Address: [address] [place] [address], [address], [place] [address] (1) Schizophrenia Schizophrenia type: other Qualified Code(s): F20.89 - Other schizophrenia
[2021-06-30] MEDS: TEMAZEPAM 15 MG CAPSULE PO SCH (21:22)
[2021-06-30] MEDS: diazePAM 5 MG TABLET PO SCH (21:22)
[2021-07-01] MEDS: cephALEXin 500 MG CAP PO SCH (08:44)
[2021-07-01] MEDS: diazePAM 2 MG TABLET PO SCH ×2 (08:44→17:19)
--- NOTE | 2021-07-01 15:23 | Psychiatric Progress Note ---
Date of Service July 01, 2021 Impression / Recommendations Impression 76 yo male with longstanding reliance on benzodiazepine to manage anxiety around auditory hallucinations, is refusing antipsychotics at this time given paranoia around Abilify injection. Showing some improvement with no current SI, continues to have some persistent delusions but understanding of limits placed on valium dosing. MNPR given psychosis, hx of not staying clothed and urinating in room, current paranoia. (1) Schizophrenia: (2) Acute UTI (urinary tract infection): 07/01/21: given that hip pain comes from delusions and no evidence of difficulty with ambulation or acute pain discussed having him follow-up with his PCP if any additional imaging is indicated but will not persue further at this time. Reviewed interim progress from Dr. Alfredo's notes. Continue current medications-discussed with him significant risks associated with high doses of benzodiazepines and that ideally I would lower even his current doses but given history of acute decompensation with benzodiazepine changes will continue with current inpatient doses, which are still quite significant and high given his age. 06/30/21: d/c hip films, consider medicine consult but likely best addressed as outpatient given delusional component. Gait improved from admission and patient has repeatedly been told his Valium will not be increased further and daytime doses will be adjusted to prn if he starts driving again. 06/29/21: [facility] referral completed, fasting labs, hypokalemia resolved, no dysuria (culture was 3 organism, redo if symptomatic), will check hip films as limiting his activities. 06/28/21: reviewed last metabolic labs, repeat K and fasting labs ordered for am. Monitor on current meds as just increased Valium. Patient is now agreeable to continue Abilify FARAH but changes mind a lot based on delusions. 06/27/21: The patient was admitted to the [facility] ([facility]) on q15 min checks (behavioral with suicide precautions) for safety. The patient will participate in group, recreational, and milieu therapies and will be offered additional individual and family sessions as clinically appropriate. Replete K. Continue course of Keflex pending culture. Will add low dose of Valium throughout day as comfort measure for now. Protective Factors Assessment Employed: No Interval History Identifying Information Jamie is a 76-year-old M admitted on 06/26/21 22:41 on a 201 voluntary commitment for suicidal ideation in the context of hallucinations. Chief Complaint "I'm ok". Review of Systems Sleep Information Total Hours of Sleep: 6.75 Sleep Comments: pt on q-15 minute checks Meal Information Percent Meal Consumed - Breakfast: 100 Percent Meal Consumed - Lunch: 100 Percent Meal Consumed - Dinner: 100 Subjective Subjective Patient was seen & assessed and interval progress reviewed with treatment team nursing and social work. Reports stable mood and denies medication side effects. Would like a higher dose of Valium for muscle spasms which he attributes to occurring in his right hip from a botox injection he believed someone gave him after sneaking into his home. Unable to reality-test around this. He declines offers to try a different medication to help with muscle/nerve pain stating "those will do nothing, valium is the only thing that helps". Physical Exam Psychiatric Orientation: alert and oriented x 3 Apperance: appropriately dressed and appropriately groomed Eye Contact: + fair eye contact Motor Behavior: no abnormal motor movements Speech: normal rate/rhythm/volume of speech Affect: + constricted affect Mood: + anxious mood; no depressed mood Thought Process: + concrete thought process Thought Content: + paranoid and + delusions Suicidal Thoughts: denies suicidal thoughts Homicidal Thoughts: denies homicidal thoughts Hallucinations: + auditory hallucinations; no visual hallucinations Cognition: language grossly intact Estimated Intelligence: consistent with education level Insight: + limited insight Judgement: + limited judgement Vital Signs (Past 24 Hours) Last Vital Signs Temp 36.4 C L 07/01/21 06:00 Pulse 68 07/01/21 06:35 Resp 14 07/01/21 06:00 BP 115/71 07/01/21 06:35 Pulse Ox 93 06/26/21 22:29 Results & Data ([facility] [[email or web address] Current Inpatient Medications Current Inpatient Medications: Current Inpatient Medications Acetaminophen (Acetaminophen 325 Mg Tab) 650 mg PO Q4H PRN PRN Reason: Headache or Minor Fever Stop: 07/26/21 22:01 Al Hydrox/Mg Hydrox/Simethicone (Aluminum/Magnesium Susp 30 Ml Udc) 30 ml PO Q4H PRN PRN Reason: GI Upset Stop: 07/26/21 22:01 Bismuth Subsalicylate (Bismuth Subsalicylate Liqd 236 Ml) 15 ml PO PRN PRN PRN Reason: Loose Stool Stop: 07/26/21 22:01 Diazepam (Diazepam 5 Mg Tablet) 5 mg PO HS MAG Stop: 07/27/21 20:59 Last Admin: 06/30/21 21:22 Dose: 5 mg Documented by: Diazepam (Diazepam 2 Mg Tablet) 2 mg PO BIDM MAG Stop: 07/27/21 17:44 Last Admin: 07/01/21 08:44 Dose: 2 mg Documented by: Haloperidol (Haloperidol 5 Mg Tab) 5 mg PO Q4 PRN PRN Reason: Agitation Stop: 07/27/21 00:00 Hydroxyzine HCl (Hydroxyzine Hcl 25 Mg Tab) 50 mg PO HSZ PRN PRN Reason: Insomnia Stop: 07/26/21 22:01 Hydroxyzine HCl (Hydroxyzine Hcl 25 Mg Tab) 25 mg PO Q4H PRN PRN Reason: Anxiety Stop: 07/26/21 22:01 Magnesium Hydroxide (Magnesium Hydroxide Susp 30 Ml Udc) 30 ml PO DAILY PRN PRN Reason: Constipation Stop: 07/26/21 22:01 Sodium Chloride (Sodium Chloride 0.65% Na Soln 45 Ml ([place])) 1 - 2 sprays NA PRN PRN PRN Reason: Nasal Dryness/Congestion Stop: 07/26/21 22:01 Temazepam (Temazepam 15 Mg Capsule) 15 mg PO HS MAG Stop: 07/27/21 20:59 Last Admin: 06/30/21 21:22 Dose: 15 mg Documented by: Mental Health & Subst Abuse Tx Psychiatrist Name of Psychiatrist: Aleksandra Pizarro Psychiatrist's Date of Appointment with Psychiatrist: 07/10/21 Time of Appointment with Psychiatrist: 4:00pm (will also get Maintena during appt) Psychiatric Appointment Comment: [address] [facility], [place] [address] Registered Associate Name of Registered Associate: Shruti Boyle Phone Number for Registered Associate: [phone] Date of Appointment with Registered Associate: 07/06/21 Time of Appointment with Registered Associate: 8:00 a.m. Case Management Appointment Comment: Will meet with you per your routine schedule Post Discharge Appointments Primary Care Physician Name Of Family Doctor: [facility] - Dr. Jeff Lopez Primary Care Date of Appointment with PCP: 07/11/21 Time of Appointment with PCP: 1:30 p.m. Provider Appointment Comment: [address], [address], [place] [address] Partial or Psych Rehab Name of Partial or Psych Rehab: [facility] Phone Number of Partial or Psych Rehab: [phone] Time of Appointment at Partial or Psych Rehab: Referral submitted on 06/29 Partial or Psych Rehab Appointment Comment: [address] [facility], [address], [place] [address] Contact Information Discharge Discharge Address: [address] [place] [address], [address], [place] [address] (1) Schizophrenia Schizophrenia type: other Qualified Code(s): F20.89 - Other schizophrenia
[2021-07-01] MEDS: diazePAM 5 MG TABLET PO SCH (20:42)
[2021-07-01] MEDS: TEMAZEPAM 15 MG CAPSULE PO SCH (20:42)
[2021-07-02] MEDS: diazePAM 2 MG TABLET PO SCH ×2 (07:45→16:46)
--- NOTE | 2021-07-02 14:43 | Psychiatric Progress Note ---
Date of Service July 02, 2021 Impression / Recommendations Impression 76 yo male with longstanding reliance on benzodiazepine to manage anxiety around auditory hallucinations, is refusing antipsychotics at this time given paranoia around Abilify injection. Showing some improvement with no current SI, continues to have some persistent delusions but understanding of limits placed on valium dosing. MNPR given psychosis, hx of not staying clothed and urinating in room, current paranoia. (1) Schizophrenia: (2) Acute UTI (urinary tract infection): 07/02/21: remains fixated on Valium as being the only medication that helps him but understands limits placed on dosing. Declined offers to try abilify po at bedtime to help with sleep and declined all other medications discussed which can be helpful for sleep. Continue with current regimen. Continue to emphasize importance of abilify FARAH after discharge. 07/01/21: given that hip pain comes from delusions and no evidence of difficulty with ambulation or acute pain discussed having him follow-up with his PCP if any additional imaging is indicated but will not persue further at this time. Reviewed interim progress from Dr. Alfredo's notes. Continue current medications- discussed with him significant risks associated with high doses of benzodiazepines and that ideally I would lower even his current doses but given history of acute decompensation with benzodiazepine changes will continue with current inpatient doses, which are still quite significant and high given his age. 06/30/21: d/c hip films, consider medicine consult but likely best addressed as outpatient given delusional component. Gait improved from admission and patient has repeatedly been told his Valium will not be increased further and daytime doses will be adjusted to prn if he starts driving again. 06/29/21: SK[employer] programming referral completed, fasting labs, hypokalemia resolved, no dysuria (culture was 3 organism, redo if symptomatic), will check hip films as limiting his activities. 06/28/21: reviewed last metabolic labs, repeat K and fasting labs ordered for am. Monitor on current meds as just increased Valium. Patient is now agreeable to continue Abilify FARAH but changes mind a lot based on delusions. 06/27/21: The patient was admitted to the [facility] ([facility] mental health unit) on q15 min checks (behavioral with suicide precautions) for safety. The patient will participate in group, recreational, and milieu therapies and will be offered additional individual and family sessions as clinically appropriate. Replete K. Continue course of Keflex pending culture. Will add low dose of Valium throughout day as comfort measure for now. Protective Factors Assessment Employed: No Interval History Identifying Information Jamie is a 76-year-old M admitted on 06/26/21 22:41 on a 201 voluntary commitment for suicidal ideation in the context of hallucinations. Chief Complaint "Abilify is just sugar water". Review of Systems Sleep Information Total Hours of Sleep: 0 Sleep Comments: pt on q-15 minute checks Meal Information Percent Meal Consumed - Breakfast: 100 Percent Meal Consumed - Lunch: 100 Percent Meal Consumed - Dinner: 100 Subjective Subjective Patient was seen & assessed and interval progress reviewed with treatment team nursing and social work. He was awake all night which he attributes to the voices being loud last night and other noises from the unit. He remains fixated on valium being the only medication that will do anything for him-stating it is the only thing that helps the voices and the only thing that treats muscle stiffness. Again discussed my concern about the risks of a higher dose not outweighing the potential benefits. He declines offers to try adding some additional po abilify to help reduce the AH before bed as he is almost due for his next abilify FARAH and may be seeing some breakthrough symptoms. He declines stating beliefs about abilify not being a certified medication and referencing facts about the company in [place] that produces it. He also declines trying any other medications to help with sleep. Reports stable mood today, last night reported some SI associated with AH. C ontinues to perseverate about CT scan of his lower body from abdomen down due to concern that he was injected with botox in his right hip. Discussed again my recommendation that he discuss any muscle and joint pain with his PCP after discharge and then they can decide if an x-ray, CT or MRI is warranted which he agreed with. Physical Exam Psychiatric Orientation: alert and oriented x 3 Apperance: appropriately dressed and appropriately groomed Eye Contact: + fair eye contact Motor Behavior: no abnormal motor movements Speech: normal rate/rhythm/volume of speech Affect: + constricted affect Mood: + anxious mood Thought Process: + concrete thought process Thought Content: + paranoid and + delusions Suicidal Thoughts: denies suicidal thoughts Homicidal Thoughts: denies homicidal thoughts Hallucinations: + auditory hallucinations; no visual hallucinations Cognition: language grossly intact Insight: + limited insight Judgement: + limited judgement Vital Signs (Past 24 Hours) Last Vital Signs Temp 36.5 C 07/02/21 06:00 Pulse 82 07/02/21 06:28 Resp 14 07/02/21 06:00 BP 160/97 H 07/02/21 06:28 Pulse Ox 93 06/26/21 22:29 Results & Data ([facility]) Current Inpatient Medications Current Inpatient Medications: Current Inpatient Medications Acetaminophen (Acetaminophen 325 Mg Tab) 650 mg PO Q4H PRN PRN Reason: Headache or Minor Fever Stop: 07/26/21 22:01 Al Hydrox/Mg Hydrox/Simethicone (Aluminum/Magnesium Susp 30 Ml Udc) 30 ml PO Q4H PRN PRN Reason: GI Upset Stop: 07/26/21 22:01 Bismuth Subsalicylate (Bismuth Subsalicylate Liqd 236 Ml) 15 ml PO PRN PRN PRN Reason: Loose Stool Stop: 07/26/21 22:01 Diazepam (Diazepam 5 Mg Tablet) 5 mg PO HS MAG Stop: 07/27/21 20:59 Last Admin: 07/01/21 20:42 Dose: 5 mg Documented by: Diazepam (Diazepam 2 Mg Tablet) 2 mg PO BIDM MAG Stop: 07/27/21 17:44 Last Admin: 07/02/21 07:45 Dose: 2 mg Documented by: Haloperidol (Haloperidol 5 Mg Tab) 5 mg PO Q4 PRN PRN Reason: Agitation Stop: 07/27/21 00:00 Hydroxyzine HCl (Hydroxyzine Hcl 25 Mg Tab) 50 mg PO HSZ PRN PRN Reason: Insomnia Stop: 07/26/21 22:01 Hydroxyzine HCl (Hydroxyzine Hcl 25 Mg Tab) 25 mg PO Q4H PRN PRN Reason: Anxiety Stop: 07/26/21 22:01 Magnesium Hydroxide (Magnesium Hydroxide Susp 30 Ml Udc) 30 ml PO DAILY PRN PRN Reason: Constipation Stop: 07/26/21 22:01 Sodium Chloride (Sodium Chloride 0.65% Na Soln 45 Ml ([place])) 1 - 2 sprays NA PRN PRN PRN Reason: Nasal Dryness/Congestion Stop: 07/26/21 22:01 Temazepam (Temazepam 15 Mg Capsule) 15 mg PO HS MAG Stop: 07/27/21 20:59 Last Admin: 07/01/21 20:42 Dose: 15 mg Documented by: Mental Health & Subst Abuse Tx Psychiatrist Name of Psychiatrist: Aleksandra Pizarro Psychiatrist's Date of Appointment with Psychiatrist: 07/10/21 Time of Appointment with Psychiatrist: 4:00pm (will also get Maintena during appt) Psychiatric Appointment Comment: [address] [facility] [place] [address] Ornamental Machine Operator Name of Ornamental Machine Operator: Shruti Boyle Phone Number for Ornamental Machine Operator: [phone] Date of Appointment with Ornamental Machine Operator: 07/06/21 Time of Appointment with Ornamental Machine Operator: 8:00 a.m. Case Management Appointment Comment: Will meet with you per your routine schedule Post Discharge Appointments Primary Care Physician Name Of Family Doctor: [facility] - Dr. Jeff Lopez Primary Care Date of Appointment with PCP: 07/11/21 Time of Appointment with PCP: 1:30 p.m. Provider Appointment Comment: [address], [address], [place] [address] Partial or Psych Rehab Name of Partial or Psych Rehab: [facility] Phone Number of Partial or Psych Rehab: [phone] Time of Appointment at Partial or Psych Rehab: Referral submitted on 06/29 Partial or Psych Rehab Appointment Comment: [address], [address], [place] [address] Contact Information Discharge Discharge Address: [address] [place] [address], [address], [place] [address] (1) Schizophrenia Schizophrenia type: other Qualified Code(s): F20.89 - Other schizophrenia
[2021-07-02] MEDS: diazePAM 5 MG TABLET PO SCH (20:14)
[2021-07-02] MEDS: TEMAZEPAM 15 MG CAPSULE PO SCH (20:14)
[2021-07-03] MEDS: diazePAM 2 MG TABLET PO SCH ×2 (08:50→17:12)
--- NOTE | 2021-07-03 16:31 | Psychiatric Progress Note ---
Date of Service July 03, 2021 Impression / Recommendations Impression 76 yo male with longstanding reliance on benzodiazepine to manage anxiety around auditory hallucinations, is refusing antipsychotics at this time given paranoia around Abilify injection. Showing some improvement with no current SI, continues to have some persistent delusions but understanding of limits placed on valium dosing. MNPR given psychosis, hx of not staying clothed and urinating in room, current paranoia. 07/03/21: Slept well last night, stable mood, no SI, showing stability and improvement from admission (1) Schizophrenia: (2) Acute UTI (urinary tract infection): 07/03/21: Continue with current medications. Agrees to follow-up with psychiatrist and get abilify FARAH. 07/02/21: remains fixated on Valium as being the only medication that helps him but understands limits placed on dosing. Declined offers to try abilify po at bedtime to help with sleep and declined all other medications discussed which can be helpful for sleep. Continue with current regimen. Continue to emphasize importance of abilify FARAH after discharge. 07/01/21: given that hip pain comes from delusions and no evidence of difficulty with ambulation or acute pain discussed having him follow-up with his PCP if any additional imaging is indicated but will not persue further at this time. Reviewed interim progress from Dr. Alfredo's notes. Continue current medications-discussed with him significant risks associated with high doses of benzodiazepines and that ideally I would lower even his current doses but given history of acute decompensation with benzodiazepine changes will continue with current inpatient doses, which are still quite significant and high given his age. 06/30/21: d/c hip films, consider medicine consult but likely best addressed as outpatient given delusional component. Gait improved from admission and patient has repeatedly been told his Valium will not be increased further and daytime doses will be adjusted to prn if he starts driving again. 06/29/21: [employer] programming referral completed, fasting labs, hypokalemia resolved, no dysuria (culture was 3 organism, redo if symptomatic), will check hip films as limiting his activities. 06/28/21: reviewed last metabolic labs, repeat K and fasting labs ordered for am. Monitor on current meds as just increased Valium. Patient is now agreeable to continue Abilify FARAH but changes mind a lot based on delusions. 06/27/21: The patient was admitted to the [facility] ([facility] mental health unit) on q15 min checks (behavioral with suicide precautions) for safety. The patient will participate in group, recreational, and milieu therapies and will be offered additional individual and family sessions as clinically appropriate. Replete K. Continue course of Keflex pending culture. Will add low dose of Valium throughout day as comfort measure for now. Protective Factors Assessment Employed: No Interval History Identifying Information Jamie is a 76-year-old M admitted on 06/26/21 22:41 on a 201 voluntary commitment for suicidal ideation in the context of hallucinations. Chief Complaint "I'm ok". Review of Systems Sleep Information Total Hours of Sleep: 8 Sleep Comments: pt given restoril per rn. pt on q-15 minute checks Meal Information Percent Meal Consumed - Breakfast: 100 Percent Meal Consumed - Lunch: 100 Percent Meal Consumed - Dinner: 100 Subjective Subjective Patient was seen & assessed and interval progress reviewed with treatment team nursing and social work. He slept well last night with 8 hours of sleep. Today h e told staff he was feeling much safer and that his mood has been stable. Today he continues to endorse stable mood, no SI and chronic AH which he feels he is able to distract himself from and no command AH. He remains concerned about potential medical sequelae from a botox injection to his hip but denies that this is interfering with his ability to ambulate or engage in his desired activities. Denies any concerns or questions. Physical Exam Psychiatric Orientation: alert and oriented x 3 Apperance: appropriately dressed and appropriately groomed Eye Contact: + fair eye contact Motor Behavior: no abnormal motor movements Speech: normal rate/rhythm/volume of speech Affect: + constricted affect Mood: no depressed mood Thought Process: + concrete thought process Suicidal Thoughts: denies suicidal thoughts Homicidal Thoughts: denies homicidal thoughts Hallucinations: + auditory hallucinations; no visual hallucinations Cognition: language grossly intact Estimated Intelligence: consistent with education level Insight: + limited insight Judgement: + limited judgement Vital Signs (Past 24 Hours) Last Vital Signs Temp 36.6 C 07/03/21 06:27 Pulse 75 07/03/21 06:27 Resp 16 07/03/21 06:27 BP 118/77 07/03/21 06:27 Pulse Ox 93 06/26/21 22:29 Results & Data ([facility]) Current Inpatient Medications Current Inpatient Medications: Current Inpatient Medications Acetaminophen (Acetaminophen 325 Mg Tab) 650 mg PO Q4H PRN PRN Reason: Headache or Minor Fever Stop: 07/26/21 22:01 Al Hydrox/Mg Hydrox/Simethicone (Aluminum/Magnesium Susp 30 Ml Udc) 30 ml PO Q4H PRN PRN Reason: GI Upset Stop: 07/26/21 22:01 Bismuth Subsalicylate (Bismuth Subsalicylate Liqd 236 Ml) 15 ml PO PRN PRN PRN Reason: Loose Stool Stop: 07/26/21 22:01 Diazepam (Diazepam 5 Mg Tablet) 5 mg PO HS MAG Stop: 07/27/21 20:59 Last Admin: 07/02/21 20:14 Dose: 5 mg Documented by: Diazepam (Diazepam 2 Mg Tablet) 2 mg PO BIDM MAG Stop: 07/27/21 17:44 Last Admin: 07/03/21 08:50 Dose: 2 mg Documented by: Haloperidol (Haloperidol 5 Mg Tab) 5 mg PO Q4 PRN PRN Reason: Agitation Stop: 07/27/21 00:00 Hydroxyzine HCl (Hydroxyzine Hcl 25 Mg Tab) 50 mg PO HSZ PRN PRN Reason: Insomnia Stop: 07/26/21 22:01 Hydroxyzine HCl (Hydroxyzine Hcl 25 Mg Tab) 25 mg PO Q4H PRN PRN Reason: Anxiety Stop: 07/26/21 22:01 Magnesium Hydroxide (Magnesium Hydroxide Susp 30 Ml Udc) 30 ml PO DAILY PRN PRN Reason: Constipation Stop: 07/26/21 22:01 Sodium Chloride (Sodium Chloride 0.65% Na Soln 45 Ml ([place])) 1 - 2 sprays NA PRN PRN PRN Reason: Nasal Dryness/Congestion Stop: 07/26/21 22:01 Temazepam (Temazepam 15 Mg Capsule) 15 mg PO HS MAG Stop: 07/27/21 20:59 Last Admin: 07/02/21 20:14 Dose: 15 mg Documented by: Mental Health & Subst Abuse Tx Psychiatrist Name of Psychiatrist: Aleksandra Pizarro Psychiatrist's Date of Appointment with Psychiatrist: 07/10/21 Time of Appointment with Psychiatrist: 4:00pm (will also get Maintena during appt) Psychiatric Appointment Comment: [address] [facility] [place] [address] Paint Roller Cover Machine Setter Name of Paint Roller Cover Machine Setter: Shruti Boyle Phone Number for Paint Roller Cover Machine Setter: [phone] Date of Appointment with Paint Roller Cover Machine Setter: 07/06/21 Time of Appointment with Paint Roller Cover Machine Setter: 8:00 a.m. Case Management Appointment Comment: Will meet with you per your routine schedul e Post Discharge Appointments Primary Care Physician Name Of Family Doctor: [facility] - Dr. Jeff Lopez Primary Care Date of Appointment with PCP: 07/11/21 Time of Appointment with PCP: 1:30 p.m. Provider Appointment Comment: [address] [facility] [address], [address], [place] [address] Partial or Psych Rehab Name of Partial or Psych Rehab: [facility] Phone Number of Partial or Psych Rehab: [phone] Time of Appointment at Partial or Psych Rehab: Referral submitted on 06/29 Partial or Psych Rehab Appointment Comment: [address], [address], [place] [address] Contact Information Discharge Discharge Address: [address] [place] [address], [address], [place] [address] (1) Schizophrenia Schizophrenia type: other Qualified Code(s): F20.89 - Other schizophrenia
[2021-07-03] MEDS: TEMAZEPAM 15 MG CAPSULE PO SCH (20:35)
[2021-07-03] MEDS: diazePAM 5 MG TABLET PO SCH (20:35)
[2021-07-04] MEDS: diazePAM 2 MG TABLET PO SCH (08:34)
--- NOTE | 2021-07-04 11:47 | Discharge Summary ---
Date of Service July 04, 2021 History of Present Illness Seems to be confusing his Abilify injection with Botox, reports symptoms of sciatica. States he was being targeted and directs me to look up Abilify as does not believe that it is FDA approved and that "it's just sugar water" and he doesn't trust the packaging it comes in. The patient then complained that psychiatrists aren't real and questioned my credentials. He remains fixated on Valium 10 mg TID as the only thing that will help him and insists he will continue to drive (somewhat tangential in conversation). He states his hallucinations are "always there" but the buzzing and voices that he should kill himself are more intense the past 2 weeks. He was started on medication for UTI in the ED but denies urinary symptoms. Physical Exam Vital Signs (Past 24 Hours) Last Vital Signs Temp 36.6 C 07/04/21 06:33 Pulse 75 07/04/21 06:34 Resp 16 07/04/21 06:33 BP 137/81 07/04/21 06:34 Pulse Ox 93 06/26/21 22:29 See admission H&P and DOD summary. Principal Diagnosis Schizophrenia Psychiatric Data See daily stay summary. In short, safety was maintained and the patient was cooperative with care. Medication changes included additional dose of diazepam 2mg prn added for afternoon to help reduce intensity of voices and anxiety related to this and they tolerated this well. He agreed to receive his next dose of abilify FARAH when he follows up with his psychiatrist on 07/10/21. He declined starting any additional medications during his admission. A safety plan was completed prior to discharge. Day of Discharge Assessment Today the patient voices readiness for discharge. He notes improvement in mood and denies thoughts to harm self or others. Denies any SI and denies any command auditory hallucinations. Thoughts are fairly organized and they are improved from admission. There is no evidence of acute psychosis with exception of fixed delusion about being injected with botox in his right hip by intruders who came into his home as well as chronic auditory hallucinations but no command hallucinations . They agree to take mediations as prescribed and keep follow-up appointments. At the time of the discharge they are deemed to be stable and appr opriate for outpatient level of care. They are not deemed to be at imminent risk of harm to self or others. They are aware of emergency and crisis services. Knows to call 911 or go to nearest emergency care center if in a crisis which cannot be handled as an outpatient. Transition of Care Transition Of Care Record: was reviewed with the patient Advance Directives Advance Directives Information Provided: Yes Advance Directives: No Mental Health Advance Directive: No Living Will: No Power of Bulker: No Advance Directives Reason:: Declines as Mental Health Visit. Risk Factors Assessment Male: Yes : Yes Do You Have Access To A Gun?: No Mental Health Diagnoses: Yes Previous Attempt: Yes Hopelessness: No Protective Factors Assessment Employed: No Good Rapport with Provider: Yes Discharge Data Lab Results 06/26/21 06/26/21 06/26/21 17:43 17:43 17:43 WBC RBC Hgb Hct MCV MCH MCHC RDW Std Deviation RDW Coeff of Namita Plt Count MPV Immature Gran % (Auto) Neut % (Auto) Lymph % (Auto) [place] % (Auto) Eos % (Auto) Baso % (Auto) Neut # (Auto) Lymph # (Auto) [place] # (Auto) Eos # (Auto) Baso # (Auto) Immature Gran # (Auto) Sodium Potassium Chloride Carbon Dioxide Anion Gap BUN Creatinine Est Cr Clr Drug Dosing Est GFR ( Amer) Est GFR (Non-Af Amer) BUN/Creatinine Ratio Glucose Fasting Glucose Calcium Total Bilirubin AST ALT Alkaline Phosphatase Total Protein Albumin Globulin Albumin/Globulin Ratio Triglycerides Cholesterol LDL Cholesterol, Calc VLDL Cholesterol, Calc HDL Cholesterol Cholesterol/HDL Ratio TSH Urine Color Yellow Urine Appearance Cloudy A Urine pH 7.0 Ur Specific [place] 1.015 Urine Protein Trace H Urine Glucose (UA) Negative Urine Ketones Negative Urine Blood 1+ H Urine Nitrite Positive A Urine Bilirubin Negative Urine Urobilinogen Negative Ur Leukocyte Esterase 3+ H Urine WBC (Auto) >30 H Urine RBC (Auto) 5-10 H U Hyaline Cast (Auto) 1-5 U Epithel Cells (Auto) 5-10 H Urine Bacteria (Auto) 2+ H Calcium Oxalate Crystal Present A Urine Yeast Not Reportable Salicylates Urine Opiates Screen Neg Ur Methadone, Qual Neg Acetaminophen Urine Barbiturates Neg Ur Phencyclidine (PCP) Neg U Amphetamin/Meth Scrn Neg MDMA (Ecstasy) Screen Neg U OH-Alprazolam Confrm NEGATIVE U Benzodiazepines Scrn Pos H 7-Amino Clonazepam NEGATIVE Ur Nordiazepam Confirm 752 H U OH-ethylflurazepam NEGATIVE U Lorazepam Cnf GC/MS NEGATIVE U Oxazepam Confm GC/MS >2000 H Ur Temazepam Confirm >2000 H U OH-Triazolam Confirm NEGATIVE U OH-Midazolam Confirm NEGATIVE Ur Cocaine Metabolite Neg U Marijuana (THC) Screen Neg Drug Screen Comment SEE NOTE Ethyl Alcohol mg/dL COVID-19 Eval Order SARS-CoV-2 (PCR) 06/26/21 06/26/21 06/26/21 18:02 18:02 18:13 WBC 8.75 RBC 4.54 L Hgb 14.2 Hct 42.5 MCV 93.6 MCH 31.3 MCHC 33.4 RDW Std Deviation 44.6 RDW Coeff of Namita 13.1 Plt Count 282 MPV 9.0 Immature Gran % (Auto) 0.2 Neut % (Auto) 73.4 Lymph % (Auto) 15.1 [place] % (Auto) 9.4 Eos % (Auto) 1.6 Baso % (Auto) 0.3 Neut # (Auto) 6.42 Lymph # (Auto) 1.32 [place] # (Auto) 0.82 H Eos # (Auto) 0.14 Baso # (Auto) 0.03 Immature Gran # (Auto) 0.02 Sodium Potassium Chloride Carbon Dioxide Anion Gap BUN Creatinine Est Cr Clr Drug Dosing Est GFR ( Amer) Est GFR (Non-Af Amer) BUN/Creatinine Ratio Glucose Fasting Glucose Calcium Total Bilirubin AST ALT Alkaline Phosphatase Total Protein Albumin Globulin Albumin/Globulin Ratio Triglycerides Cholesterol LDL Cholesterol, Calc VLDL Cholesterol, Calc HDL Cholesterol Cholesterol/HDL Ratio TSH Urine Color Urine Appearance Urine pH Ur Specific [place] Urine Protein Urine Glucose (UA) Urine Ketones Urine Blood Urine Nitrite Urine Bilirubin Urine Urobilinogen Ur Leukocyte Esterase Urine WBC (Auto) Urine RBC (Auto) U Hyaline Cast (Auto) U Epithel Cells (Auto) Urine Bacteria (Auto) Calcium Oxalate Crystal Urine Yeast Salicylates Urine Opiates Screen Ur Methadone, Qual Acetaminophen Urine Barbiturates Ur Phencyclidine (PCP) U Amphetamin/Meth Scrn MDMA (Ecstasy) Screen U OH-Alprazolam Confrm U Benzodiazepines Scrn 7-Amino Clonazepam Ur Nordiazepam Confirm U OH-ethylflurazepam U Lorazepam Cnf GC/MS U Oxazepam Confm GC/MS Ur Temazepam Confirm U OH-Triazolam Confirm U OH-Midazolam Confirm Ur Cocaine Metabolite U Marijuana (THC) Screen Drug Screen Comment Ethyl Alcohol mg/dL COVID-19 Eval Order Covid19 at [facility] SARS-CoV-2 (PCR) NEGATIVE 06/26/21 06/26/21 06/26/21 18:13 18:13 18:13 WBC RBC Hgb Hct MCV MCH MCHC RDW Std Deviation RDW Coeff of Namita Plt Count MPV Immature Gran % (Auto) Neut % (Auto) Lymph % (Auto) [place] % (Auto) Eos % (Auto) Baso % (Auto) Neut # (Auto) Lymph # (Auto) [place] # (Auto) Eos # (Auto) Baso # (Auto) Immature Gran # (Auto) Sodium 137 Potassium 3.1 L Chloride 103 Carbon Dioxide 29 Anion Gap 5.0 BUN 13 Creatinine 0.95 Est Cr Clr Drug Dosing 62.8 Est GFR ( Amer) 90.4 Est GFR (Non-Af Amer) 78.0 BUN/Creatinine Ratio 14.2 Glucose 107 H Fasting Glucose Calcium 8.9 Total Bilirubin 0.5 AST 16 ALT 28 Alkaline Phosphatase 113 Total Protein 7.2 Albumin 3.2 L Globulin 4.0 Albumin/Globulin Ratio 0.8 L Triglycerides Cholesterol LDL Cholesterol, Calc VLDL Cholesterol, Calc HDL Cholesterol Cholesterol/HDL Ratio TSH 0.999 Urine Color Urine Appearance Urine pH Ur Specific [place] Urine Protein Urine Glucose (UA) Urine Ketones Urine Blood Urine Nitrite Urine Bilirubin Urine Urobilinogen Ur Leukocyte Esterase Urine WBC (Auto) Urine RBC (Auto) U Hyaline Cast (Auto) U Epithel Cells (Auto) Urine Bacteria (Auto) Calcium Oxalate Crystal Urine Yeast Salicylates < 1.7 L Urine Opiates Screen Ur Methadone, Qual Acetaminophen < 2 L Urine Barbiturates Ur Phencyclidine (PCP) U Amphetamin/Meth Scrn MDMA (Ecstasy) Screen U OH-Alprazolam Confrm U Benzodiazepines Scrn 7-Amino Clonazepam Ur Nordiazepam Confirm U OH-ethylflurazepam U Lorazepam Cnf GC/MS U Oxazepam Confm GC/MS Ur Temazepam Confirm U OH-Triazolam Confirm U OH-Midazolam Confirm Ur Cocaine Metabolite U Marijuana (THC) Screen Drug Screen Comment Ethyl Alcohol mg/dL < 3.0 COVID-19 Eval Order SARS-CoV-2 (PCR) 06/29/21 09:15 WBC RBC Hgb Hct MCV MCH MCHC RDW Std Deviation RDW Coeff of Namita Plt Count MPV Immature Gran % (Auto) Neut % (Auto) Lymph % (Auto) [place] % (Auto) Eos % (Auto) Baso % (Auto) Neut # (Auto) Lymph # (Auto) [place] # (Auto) Eos # (Auto) Baso # (Auto) Immature Gran # (Auto) Sodium 140 Potassium 3.8 Chloride 106 Carbon Dioxide 27 Anion Gap 7.0 BUN Creatinine Est Cr Clr Drug Dosing Est GFR ( Amer) Est GFR (Non-Af Amer) BUN/Creatinine Ratio Glucose Fasting Glucose 92 Calcium Total Bilirubin AST ALT Alkaline Phosphatase Total Protein Albumin Globulin Albumin/Globulin Ratio Triglycerides 111 Cholesterol 177 LDL Cholesterol, Calc 92 VLDL Cholesterol, Calc 22 HDL Cholesterol 63 Cholesterol/HDL Ratio 3 TSH Urine Color Urine Appearance Urine pH Ur Specific [place] Urine Protein Urine Glucose (UA) Urine Ketones Urine Blood Urine Nitrite Urine Bilirubin Urine Urobilinogen Ur Leukocyte Esterase Urine WBC (Auto) Urine RBC (Auto) U Hyaline Cast (Auto) U Epithel Cells (Auto) Urine Bacteria (Auto) Calcium Oxalate Crystal Urine Yeast Salicylates Urine Opiates Screen Ur Methadone, Qual Acetaminophen Urine Barbiturates Ur Phencyclidine (PCP) U Amphetamin/Meth Scrn MDMA (Ecstasy) Screen U OH-Alprazolam Confrm U Benzodiazepines Scrn 7-Amino Clonazepam Ur Nordiazepam Confirm U OH-ethylflurazepam U Lorazepam Cnf GC/MS U Oxazepam Confm GC/MS Ur Temazepam Confirm U OH-Triazolam Confirm U OH-Midazolam Confirm Ur Cocaine Metabolite U Marijuana (THC) Screen Drug Screen Comment Ethyl Alcohol mg/dL COVID-19 Eval Order SARS-CoV-2 (PCR) Hospital Course (1) Schizophrenia: (2) Acute UTI (urinary tract infection): 07/03/21: Continue with current medications. Agrees to follow-up with psychiatrist and get abilify FARAH. 07/02/21: remains fixated on Valium as being the only medication that helps him but understands limits placed on dosing. Declined offers to try abilify po at bedtime to help with sleep and declined all other medications discussed which can be helpful for sleep. Continue with current regimen. Continue to emphasize importance of abilify FARAH after discharge. 07/01/21: given that hip pain comes from delusions and no evidence of difficulty with ambulation or acute pain discussed having him follow-up with his PCP if any additional imaging is indicated but will not persue further at this time. Reviewed interim progress from Dr. Alfredo's notes. Continue current medications- discussed with him significant risks associated with high doses of benzodiazepines and that ideally I would lower even his current doses but given history of acute decompensation with benzodiazepine changes will continue with current inpatient doses, which are still quite significant and high given his age. 06/30/21: d/c hip films, consider medicine consult but likely best addressed as outpatient given delusional component. Gait improved from admission and patient has repeatedly been told his Valium will not be increased further and daytime doses will be adjusted to prn if he starts driving again. 06/29/21: [facility] referral completed, fasting labs, hypokalemia resolved, no dysuria (culture was 3 organism, redo if symptomatic), will check hip films as limiting his activities. 06/28/21: reviewed last metabolic labs, repeat K and fasting labs ordered for am. Monitor on current meds as just increased Valium. Patient is now agreeable to continue Abilify FARAH but changes mind a lot based on delusions. 06/27/21: The patient was admitted to the [facility] ([facility] inpatient mental health unit) on q15 min checks (behavioral with suicide precautions) for safety. The patient will participate in group, recreational, and milieu therapies and will be offered additional individual and family sessions as clinically appropriate. Replete K. Continue course of Keflex pending culture. Will add low dose of Valium throughout day as comfort measure for now. Mental Health & Subst Abuse Tx Psychiatrist Name of Psychiatrist: Aleksandra Pizarro Psychiatrist's Date of Appointment with Psychiatrist: 07/10/21 Time of Appointment with Psychiatrist: 4:00pm (will also get Maintena during appt) Psychiatric Appointment Comment: [address], [place] [address] Field Rep Name of Field Rep: Shruti Boyle Phone Number for Field Rep: [phone] Date of Appointment with Field Rep: 07/06/21 Time of Appointment with Field Rep: 8:00 a.m. Case Management Appointment Comment: Will meet with you per your routine schedule Post Discharge Appointments Primary Care Physician Name Of Family Doctor: [facility] - Dr. Jeff Lopez Primary Care Date of Appointment with PCP: 07/11/21 Time of Appointment with PCP: 1:30 p.m. Provider Appointment Comment: [address], [address], [place] [address] Partial or Psych Rehab Name of Partial or Psych Rehab: [facility] Phone Number of Partial or Psych Rehab: [phone] Time of Appointment at Partial or Psych Rehab: Referral submitted on 06/29 Partial or Psych Rehab Appointment Comment: [address], [address], [place] [address] Contact Information Discharge Discharge Address: [address] [place] [address], [address], [place] [address] Discharge Plan Discharge Items Patient Disposition: Home - Self-Care Reason For Visit: MHID Discharge Diagnosis: Schizophrenia Activity: Resume your previous activity Non-emergency contact: Primary Care Provider, Psychiatrist and Business Taxes Specialist Call non-emergency contact if: you have any medication questions and your sym ptoms worsen Follow-up/Referrals: Jeff Lopez MD [Primary Care Provider] - Diet: Regular Addtl Attending Provider Instructions: SPECIAL CARE INSTRUCTIONS: 1. Follow through with your scheduled aftercare appointments. If unable to keep an appointment, please call to reschedule. 2. Take your medication only as prescribed. Medication should not be changed or stopped without the approval of your doctor. In the event of worsening symptoms or concerns about side effects, contact your doctor immediately. 3. Utilize new healthy coping skills, anger management skills, and stress management skills learned during your hospitalization. Journal feelings and process them with a support person. Identify stressors or situations that may result in relapse, deterioration or inappropriate behaviors and develop a plan to deal with those issues. 4. If your coping skills are ineffective and you are in crisis, contact your outpatient providers for direction. If unable to reach your providers, please call the [facility] CRISIS LINE AT , go to the [facility] walk-in center at [address], [place], or go to the closest Emergency Room. 5. Avoid alcohol and un-prescribed drugs. 6. You have been provided with the Mental Health Advance Directives Pamphlet for your review. 7. Your condition is stable for discharge to outpatient level of care, but recovery is an ongoing process. Ifthoughts to harm yourself or others return, follow the safety plan developed during your stay. Planning for a safe return home includes securing weapons. Our treatment team recommends weaponsbe removed from the home until your outpatient provider reassesses your progress. In rare cases where the items themselvescannot be removed, guns and ammunitionshould be secured separatelyand keys stored by a reliable personoutside of the home. If you were admitted on an involuntary commitment, the police or other legal authorities may be involved in this process. AFTERCARE APPOINTMENTS: * Please call your insurance company prior to your scheduled appointment to confirm your aftercare providers are covered. Take your insurance information to your appointments. WHO TO CALL AND WHEN: Medical Emergencies: For questions or emergencies related to your hospital stay, please contact the Inpatient Behavioral Health Unit at [phone]. A air reduction equipment operator is on-call 11/03 for the Behavioral Health Unit for emergencies At any time you feel your situation is an emergency, you may also call 911 immediately. Pending Studies at Discharge: No Stand-Alone Forms: My [facility] Medications and DC Order Prescriptions: New diazepam 2 mg Tablet 2 mg PO BIDM 30 Days Qty: 60 RF: 0 Continued Abilify Maintena 300 mg Suspension,Extended Rel Syring 300 mg IM MONTHLY RF: 0 diazepam 5 mg tablet 5 mg PO HS RF: 0 temazepam 15 mg capsule 15 mg PO HS RF: 0 Discontinued diazepam 2 mg Tablet 2 mg PO DAILY RF: 0 venlafaxine 25 mg tablet 25 mg PO DAILY RF: 0 Discharge Orders: Discharge Order (Routine); Ordered 07/04/21 Ordered By: Rosa Silva Admission Data Admit Date/Time: 06/26/21 22:41 Attending Provider: Sugey Alfredo Admit Provider: Sugey Alfredo Primary Care Provider: Jeff Lopez Other Interventions: PSY Interdisciplinary Discharge Planning Last Done: 06/29/21 13:28 Coding Level of Care Code 36687 D/C day mgmt > 30 min Diagnoses Schizophrenia F20.89 Schizophrenia type: other Acute UTI (urinary tract infection) N39.0
== END 2021-07-04 13:00 | disposition home or self-care (01) | DRG 885 ==
LOC: ED 17:28 → 3S 22:29

== ENCOUNTER 2021-10-19 12:08 | Inpatient (IN) ==
--- NOTE | 2021-10-19 12:31 | Emergency Department Note ---
History of Present Illness General Chief complaint: Mental Health Evaluation Stated complaint: MENTAL HEALTH EVAL,DX OF SCHIZOPHRENIA Time Seen by Provider: 10/19/21 12:18 History of Present Illness Provider complaint: Mental health evaluation Onset (ago): week(s) 2 76-year-old male with history of schizophrenia presents emergency department for mental health evaluation. Patient states for last 2 weeks he has been hearing loud noises and voices in his head telling him to kill himself. He states he did not say specifically on how to kill himself. Patient states he is not been taking his psychiatric medications for last month. Patient states he wants help to stop the voices to tell him to stop killing himself. Home Medications Medication Instructions Recorded Confirmed Type temazepam 15 mg capsule 15 mg PO HS PRN 10/25/20 10/19/21 History diazepam 5 mg tablet 5 mg PO HS PRN 06/26/21 10/19/21 History aripiprazole 300 mg suspension, 300 mg IM MONTHLY 10/19/21 10/19/21 History extended rel. intramuscular syringe (Madie Aleman) Allergies Allergy/AdvReac Type Severity Reaction Status Date / Time No Known Allergies Allergy Verified 06/26/21 17:56 Past Med/Surg History Medical History Benzodiazepine abuse Closed head injury Fall Hypertension Hypokalemia Leukocytosis (08/14/13) Rhabdomyolysis (07/21/13) Scalp laceration Schizophrenia Tobacco use disorder Surgical History No pertinent past surgical history Family History Father Cancer Mother Cancer Other No pertinent family history Denies family history of Hearing loss No family history of adverse response to anesthesia No family history of bleeding disorder Heart disease Allergies Hypertension Stroke Asthma Social History Smoking Status: Never smoker Tobacco Type: Cigarettes packs per day: 1; Hx Alcohol Use: No Hx Substance Use: No Preferred Language: Macedonian Communication Ability: Effective Visual Impairment: No Limitations Hearing Ability: Normal Security Installation Technician Required: No Beliefs That Will Affect Care: None marital status: Single Current Living Situation: Alone current occupational status: retired Feels Safe at Home: Yes Assistive Devices: None Review of Systems A total of 10 systems reviewed and were otherwise negative Physical Exam Vital Signs Vital Signs - 24 hr 10/19/21 12:09 10/19/21 14:00 10/19/21 17:00 Temperature 36.8 C Temperature Source Temporal Artery Scan Pulse Rate 77 Pulse Rate [Finger] 73 92 H Pulse Rhythm [Finger] Regular Pulse Strength [Finger] Normal Respiratory Rate 16 16 20 Respiratory Effort / Characteristics Non-Labored Non-Labored Respiratory Depth Normal Normal Respiratory Pattern Regular Blood Pressure 133/73 Blood Pressure [Left Arm] 129/79 143/80 H Blood Pressure Mean 93 Blood Pressure Mean [Left Arm] 95 101 Blood Pressure Position [Left Arm] Lying Pulse Oximetry 96 98 96 Oxygen Delivery Method Room Air Room Air Room Air Sepsis Recent Fever Within 48 Hours No Sepsis New/Unexplained Change in Mental Status N/A Sepsis Action Taken by Nursing No Action Required Physical Exam GENERAL: He is oriented to person, place, and time. He appears well-developed and well-nourished. He does not appear distressed. HENT: Exam performed. - Head: Normocephalic and atraumatic. - Right Ear: External ear normal. No mastoid tenderness. - Left Ear: External ear normal. No mastoid tenderness. - Mouth/Throat: The oropharynx is clear and moist. No trismus in the jaw. No dental abscesses or uvula swelling. No oropharyngeal exudate or tonsillar abscesses. EYES: Conjunctivae and EOM are normal. Pupils are equal, round, and reactive to light. Right eye exhibits no discharge. Left eye exhibits no discharge. No scleral icterus. NECK: Normal range of motion. Neck supple. No JVD present. No spinous process tenderness present. No carotid bruit present. No rigidity. No tracheal deviation and normal range of motion present. No Brudzinski's sign and no Kernig's sign noted. CV: Normal rate, regular rhythm, normal heart sounds and intact distal pulses. There is no peripheral edema. Palpable radial pulses bue. PULM/CHEST: Effort normal and breath sounds normal. No respiratory distress. No stridor. He has no wheezes. He has no rales. - Chest Wall: He exhibits no tenderness. ABD: The abdomen is soft. Bowel sounds are normal. He has no distension. No mass is present. There is no tenderness. There is no rebound, no guarding, no Correa's sign and no tenderness at McBurney's point. Rovsig negative. MUSC/SKEL: Normal range of motion. There is no peripheral edema, tenderness or deformity. LYMPH: No cervical adenopathy. NEURO: He is alert and oriented to person, place, and time. He has normal strength. No cranial nerve deficit or sensory deficit. Coordination and gait normal. GCS eye subscore is 4. GCS verbal subscore is 5. GCS motor subscore is 6. Cerebellar tests wnl. SKIN: Skin is warm and dry. He is not diaphoretic. PSYCH: Bizarre affect. Suicidal ideation. Auditory hallucinations. Course Course 1218: The patient was evaluated in room A6. A complete history and physical exam was performed 1400: Vital signs stable. Patient medically cleared. Awaiting psychiatric evaluation placement. Patient placed in observation at this time. 1741:Patient accepted to 3 S. Administered Medications Discontinued Medications Lorazepam (Lorazepam 0.5 Mg Tab) 0.5 mg PO NOW STA Stop: 10/19/21 16:47 Last Admin: 10/19/21 16:52 Dose: 0.5 mg Documented by: [id number] Medical Decision Making Laboratory Data Result diagrams: 10/19/21 12:26 10/19/21 12:26 Lab Results 10/19/21 10/19/21 10/19/21 Range/Units 12:26 12:26 12:26 WBC 8.27 (4.8-10.8) K/uL RBC 4.69 L (4.7-6.1) M/uL Hgb 15.0 (14.0-18.0) g/dL Hct 43.7 (42-52) % MCV 93.2 (80-100) fL MCH 32.0 (25-34) pg MCHC 34.3 (32-36) g/dL RDW Std Deviation 43.9 (36.4-46.3) fL RDW Coeff of Namita 13.0 (11.5-14.5) % Plt Count 328 (130-400) K/uL MPV 9.2 (7.4-10.4) fL Immature Gran % (Auto) 0.2 % Neut % (Auto) 72.6 % Lymph % (Auto) 16.0 % [place] % (Auto) 9.6 % Eos % (Auto) 1.2 % Baso % (Auto) 0.4 % Neut # (Auto) 6.01 (1.4-6.5) K/uL Lymph # (Auto) 1.32 (1.2-3.4) K/uL [place] # (Auto) 0.79 H (0.11-0.59) K/uL Eos # (Auto) 0.10 (0-0.5) K/uL Baso # (Auto) 0.03 (0-0.2) K/uL Immature Gran # (Auto) 0.02 (0.00-0.02) K/uL Sodium 136 (136-145) mmol/L Potassium 4.2 (3.5-5.1) mmol/L Chloride 101 (98-107) mmol/L Carbon Dioxide 28 (21-32) mmol/L Anion Gap 7 (3-11) BUN 10 (6-23) mg/dl Creatinine 0.82 (0.6-1.4) mg/dl Est Cr Clr Drug Dosing 72.8 ml/min Est GFR ( Amer) 100.3 ml/min Est GFR (Non-Af Amer) 86.5 ml/min BUN/Creatinine Ratio 12.2 (10-20) Glucose 100 H (70-99(Fasting)) mg/dl Calcium 9.7 (8.5-10.1) mg/dl Total Bilirubin 0.5 (0.2-1.0) mg/dl AST 24 (13-39) U/L ALT 21 (7-52) U/L Alkaline Phosphatase 94 (34-104) U/L Total Protein 7.1 (6.0-8.3) gm/dl Albumin 4.2 (3.4-5.0) gm/dl Globulin 2.9 (2.5-4.0) gm/dl Albumin/Globulin Ratio 1.4 (0.9-2) TSH 0.812 (0.300-4.500) uIu/ml Urine Color Urine Appearance (Clear) Urine pH (4.5-7.5) Ur Specific [place] (1.000-1.030) Urine Protein (Negative) Urine Glucose (UA) (Negative) Urine Ketones (Negative) Urine Blood (Negative) Urine Nitrite (Negative) Urine Bilirubin (Negative) Urine Urobilinogen (Negative) Ur Leukocyte Esterase (Negative) Urine WBC (Auto) (0-5) /hpf Urine RBC (Auto) (0-4) /hpf U Hyaline Cast (Auto) (0-5) /lpf U Epithel Cells (Auto) (0-5) /lpf Urine Bacteria (Auto) (Negative) Salicylates (3.0-30) mg/dl Urine Opiates Screen (Neg) Ur Methadone, Qual (Neg) Acetaminophen (10-30) ug/ml Urine Barbiturates (Neg) Ur Phencyclidine (PCP) (Neg) U Amphetamin/Meth Scrn (Neg) MDMA (Ecstasy) Screen (Neg) U Benzodiazepines Scrn (Neg) Ur Cocaine Metabolite (Neg) U Marijuana (THC) Screen (Neg) Ethyl Alcohol mg/dL (<10.0) mg/dl SARS-CoV-2, RNA, NAAT (NEGATIVE) 10/19/21 10/19/21 10/19/21 Range/Units 12:26 12:26 12:47 WBC (4.8-10.8) K/uL RBC (4.7-6.1) M/uL Hgb (14.0-18.0) g/dL Hct (42-52) % MCV (80-100) fL MCH (25-34) pg MCHC (32-36) g/dL RDW Std Deviation (36.4-46.3) fL RDW Coeff of Namita (11.5-14.5) % Plt Count (130-400) K/uL MPV (7.4-10.4) fL Immature Gran % (Auto) % Neut % (Auto) % Lymph % (Auto) % [place] % (Auto) % Eos % (Auto) % Baso % (Auto) % Neut # (Auto) (1.4-6.5) K/uL Lymph # (Auto) (1.2-3.4) K/uL [place] # (Auto) (0.11-0.59) K/uL Eos # (Auto) (0-0.5) K/uL Baso # (Auto) (0-0.2) K/uL Immature Gran # (Auto) (0.00-0.02) K/uL Sodium (136-145) mmol/L Potassium (3.5-5.1) mmol/L Chloride (98-107) mmol/L Carbon Dioxide (21-32) mmol/L Anion Gap (3-11) BUN (6-23) mg/dl Creatinine (0.6-1.4) mg/dl Est Cr Clr Drug Dosing ml/min Est GFR ( Amer) ml/min Est GFR (Non-Af Amer) ml/min BUN/Creatinine Ratio (10-20) Glucose (70-99(Fasting)) mg/dl Calcium (8.5-10.1) mg/dl Total Bilirubin (0.2-1.0) mg/dl AST (13-39) U/L ALT (7-52) U/L Alkaline Phosphatase (34-104) U/L Total Protein (6.0-8.3) gm/dl Albumin (3.4-5.0) gm/dl Globulin (2.5-4.0) gm/dl Albumin/Globulin Ratio (0.9-2) TSH (0.300-4.500) uIu/ml Urine Color [place] Urine Appearance Clear (Clear) Urine pH 7.0 (4.5-7.5) Ur Specific [place] 1.005 (1.000-1.030) Urine Protein Negative (Negative) Urine Glucose (UA) Negative (Negative) Urine Ketones Negative (Negative) Urine Blood Trace H (Negative) Urine Nitrite Positive A (Negative) Urine Bilirubin Negative (Negative) Urine Urobilinogen Negative (Negative) Ur Leukocyte Esterase 2+ H (Negative) Urine WBC (Auto) 10-30 H (0-5) /hpf Urine RBC (Auto) 0-4 (0-4) /hpf U Hyaline Cast (Auto) 0 (0-5) /lpf U Epithel Cells (Auto) 0-5 (0-5) /lpf Urine Bacteria (Auto) 2+ H (Negative) Salicylates < 3.0 L (3.0-30) mg/dl Urine Opiates Screen (Neg) Ur Methadone, Qual (Neg) Acetaminophen < 3 L (10-30) ug/ml Urine Barbiturates (Neg) Ur Phencyclidine (PCP) (Neg) U Amphetamin/Meth Scrn (Neg) MDMA (Ecstasy) Screen (Neg) U Benzodiazepines Scrn (Neg) Ur Cocaine Metabolite (Neg) U Marijuana (THC) Screen (Neg) Ethyl Alcohol mg/dL < 10.0 (<10.0) mg/dl SARS-CoV-2, RNA, NAAT (NEGATIVE) 10/19/21 10/19/21 Range/Units 12:47 12:47 WBC (4.8-10.8) K/uL RBC (4.7-6.1) M/uL Hgb (14.0-18.0) g/dL Hct (42-52) % MCV (80-100) fL MCH (25-34) pg MCHC (32-36) g/dL RDW Std Deviation (36.4-46.3) fL RDW Coeff of Namita (11.5-14.5) % Plt Count (130-400) K/uL MPV (7.4-10.4) fL Immature Gran % (Auto) % Neut % (Auto) % Lymph % (Auto) % [place] % (Auto) % Eos % (Auto) % Baso % (Auto) % Neut # (Auto) (1.4-6.5) K/uL Lymph # (Auto) (1.2-3.4) K/uL [place] # (Auto) (0.11-0.59) K/uL Eos # (Auto) (0-0.5) K/uL Baso # (Auto) (0-0.2) K/uL Immature Gran # (Auto) (0.00-0.02) K/uL Sodium (136-145) mmol/L Potassium (3.5-5.1) mmol/L Chloride (98-107) mmol/L Carbon Dioxide (21-32) mmol/L Anion Gap (3-11) BUN (6-23) mg/dl Creatinine (0.6-1.4) mg/dl Est Cr Clr Drug Dosing ml/min Est GFR ( Amer) ml/min Est GFR (Non-Af Amer) ml/min BUN/Creatinine Ratio (10-20) Glucose (70-99(Fasting)) mg/dl Calcium (8.5-10.1) mg/dl Total Bilirubin (0.2-1.0) mg/dl AST (13-39) U/L ALT (7-52) U/L Alkaline Phosphatase (34-104) U/L Total Protein (6.0-8.3) gm/dl Albumin (3.4-5.0) gm/dl Globulin (2.5-4.0) gm/dl Albumin/Globulin Ratio (0.9-2) TSH (0.300-4.500) uIu/ml Urine Color Urine Appearance (Clear) Urine pH (4.5-7.5) Ur Specific [place] (1.000-1.030) Urine Protein (Negative) Urine Glucose (UA) (Negative) Urine Ketones (Negative) Urine Blood (Negative) Urine Nitrite (Negative) Urine Bilirubin (Negative) Urine Urobilinogen (Negative) Ur Leukocyte Esterase (Negative) Urine WBC (Auto) (0-5) /hpf Urine RBC (Auto) (0-4) /hpf U Hyaline Cast (Auto) (0-5) /lpf U Epithel Cells (Auto) (0-5) /lpf Urine Bacteria (Auto) (Negative) Salicylates (3.0-30) mg/dl Urine Opiates Screen Neg (Neg) Ur Methadone, Qual Neg (Neg) Acetaminophen (10-30) ug/ml Urine Barbiturates Neg (Neg) Ur Phencyclidine (PCP) Neg (Neg) U Amphetamin/Meth Scrn Neg (Neg) MDMA (Ecstasy) Screen Neg (Neg) U Benzodiazepines Scrn Neg (Neg) Ur Cocaine Metabolite Neg (Neg) U Marijuana (THC) Screen Neg (Neg) Ethyl Alcohol mg/dL (<10.0) mg/dl SARS-CoV-2, RNA, NAAT NEGATIVE (NEGATIVE) MDM Narrative Observation note Indication: Psych eval/placement Patient, with schizophrenia was first seen at 1218 hrs and the observation time began at 1400 hrs and was necessary in order to have psych evaluation completed . Upon re-evaluation, 3 hours and 41 minutes of observation revealed that the patient should be admitted to 3S. Disposition date and time 10/19/2021 1741. Impression & Plan Schizophrenia Discharge Plan Visit Data Chief Complaint: Mental Health Evaluation Stated Complaint: MENTAL HEALTH EVAL,DX OF SCHIZOPHRENIA ED Provider: Feliciano Stover Discharge Problem: Schizophrenia Patient Disposition: Admitted As Inpatient Forms Stand Alone Forms: My [facility], Suicide Prevention Resources Prescriptions Prescriptions: No Action diazepam 5 mg tablet 5 mg PO HS PRN (Reason: Sleep) RF: 0 temazepam 15 mg capsule 15 mg PO HS PRN (Reason: Sleep) RF: 0 Abilify Maintena 300 mg Suspension,Extended Rel Syring 300 mg IM MONTHLY RF: 0 Referrals Referrals: Jeff Lopez MD [Primary Care Provider] -
[2021-10-19 12:43] LABS: Basophils # (auto) 0.03 K/uL (0-0.2); Basophils % (auto) 0.4 %; Eosinophils % (auto) 1.2 %; Hematocrit (blood only) 43.7 % (42-52); Immature Granulocytes # (auto) 0.02 K/uL (0.00-0.02); Immature Granulocytes % (auto) 0.2 %; Lymphocytes # (auto) 1.32 K/uL (1.2-3.4); Mean Corpuscular Hgb Conc 34.3 g/dL (32-36); Mean Corpuscular Volume 93.2 fL (80-100); Mean Platelet Volume 9.2 fL (7.4-10.4); Monocytes # (auto) 0.79 K/uL (0.11-0.59); Monocytes % (auto) 9.6 %; Neutrophils # (auto) 6.01 K/uL (1.4-6.5); Neutrophils % (auto) 72.6 %; Platelet Count 328 K/uL (130-400); RDW Standard Deviation 43.9 fL (36.4-46.3); Red Blood Count 4.69 M/uL (4.7-6.1); White Blood Count 8.27 K/uL (4.8-10.8)
[2021-10-19 13:05] LABS: Appearance Urine Clear (Clear); Bacteria Urine Automated 2+ (Negative); Bilirubin Urine Negative (Negative); Blood Urine Trace (Negative); Cast Urine Automated 0 /lpf (0-5); Color Urine Orange; Epithelial Cell Urine Auto 0-5 /lpf (0-5); Glucose Urine UA Negative (Negative); Ketones Urine Negative (Negative); Leukocyte Esterase Urine 2+ (Negative); Nitrite Urine Positive (Negative); Protein Urine Negative (Negative); Specific Gravity Urine 1.005 (1.000-1.030); Urobilinogen Urine Negative (Negative)
[2021-10-19 13:12] LABS: Albumin Globulin Ratio 1.4 (0.9-2); Albumin Level 4.2 gm/dl (3.4-5.0); BUN Creatinine Ratio 12.2 (10-20); Bilirubin,Total 0.5 mg/dl (0.2-1.0); Calcium 9.7 mg/dl (8.5-10.1); Creatinine Clr Calc Pharmacy 72.8 ml/min; Est GFR (African American) 100.3 ml/min; Est GFR (Non-African American) 86.5 ml/min; Globulin 2.9 gm/dl (2.5-4.0); Potassium 4.2 mmol/L (3.5-5.1); Total Protein 7.1 gm/dl (6.0-8.3)
[2021-10-19 13:13] LABS: Acetaminophen < 3 ug/ml (10-30); Salicylate < 3.0 mg/dl (3.0-30)
[2021-10-19 13:59] LABS: Amphetamines+Metham, Urine Neg (Neg); Barbiturates, Urine Neg (Neg); Benzodiazepine, Urine Neg (Neg); Cocaine, Urine Neg (Neg); MDMA (Ecstacy), Urine Neg (Neg); Methadone, Urine Neg (Neg); Opiate, Urine Neg (Neg); Phencyclidine, Urine Neg (Neg)
[2021-10-19 14:21] LABS: RBC Urine Automated 0-4 /hpf (0-4)
[2021-10-19] MEDS ORDERED: LORazepam 0.5 MG TAB PO STA (16:46)
[2021-10-19] MEDS ORDERED: TEMAZEPAM 15 MG CAPSULE PO PRN (17:25)
[2021-10-19] MEDS ORDERED: diazePAM 5 MG TABLET PO PRN (17:25)
[2021-10-19] MEDS ORDERED: BISMUTH SUBSALICYLATE LIQD 236 ML PO PRN (17:26)
[2021-10-19] MEDS ORDERED: hydrOXYzine HCl 25 MG TAB PO PRN ×2 (17:26)
[2021-10-19] MEDS ORDERED: SODIUM CHLORIDE 0.65% NA SOLN 45 ML (OCEAN) PRN (17:26)
[2021-10-19] MEDS ORDERED: ACETAMINOPHEN 325 MG TAB PO PRN (17:26)
[2021-10-19] MEDS ORDERED: MAGNESIUM HYDROXIDE SUSP 30 ML UDC PO PRN (17:26)
[2021-10-20] MEDS ORDERED: PNEUMOCOCCAL Polysaccharide Vaccine 25mcg/0.5mL vial/Syr IM ONE (04:00)
[2021-10-20 09:19] LABS: Chol HDL Ratio 2.4 (0-5)
[2021-10-20 09:40] LABS: Estimated Average Glucose 105 mg/dl; Hemoglobin A1C 5.3 % (4.5-5.6)
--- NOTE | 2021-10-20 09:42 | History & Physical ---
Date of Service October 20, 2021 Impression / Recommendations Yanique Ayala is a 76-year-old male with a history of schizophrenia and multiple admissions for SI and auditory command hallucinations, particularly in the context of med non compliance. At baseline he has a delusion about noise in his head/buzzing for which he feels the only cure is Valium which he has misused in the past. He is currently on MNPR for a history of poor boundaries, intolerance of peers, and age given COVID pandemic. (1) Schizophrenia: Schizophrenia type: unspecified Qualified Code(s): F20.9 - Schizophrenia, unspecified 10/20/21: The patient was admitted to the [facility] ([facility] inpatient mental health unit) on q15 min checks (behavioral with suicide precautions) for safety. The patient will participate in group, recreational, and milieu therapies and will be offered additional individual and family sessions as clinically appropriate. Risks/benefits/alternatives reviewed re: Latuda for hallucinations, I don't have immediate evidence that he has tried it before and there would be no means to try Vraylar or Rexulti as non-formulary. It would hopefully help from a depression standpoint as well. He is well aware of risks/benefits/TD/metabolic issues with antipsychotics and did have fasting labs this am. Inventory Assets Strengths: has engaged with case management in past, housing Needs: resume outpatient med management, compliance Risk Factors Assessment Male: Yes : Yes Do You Have Access To A Gun?: No Mental Health Diagnoses: Yes Previous Attempt: Yes Previous Psychiatric Hospitalization: Yes Protective Factors Assessment Employed: No Stable Relationships: No Supportive Family: No Psychiatric History Identifying Data TREY ROBERTO is a 76-year-old M who currently lives in [place], multiple inpatient admissions to (most recent June 2021), was admitted on 10/19/21 17:26 on a 201 voluntary commitment for command hallucinations. Chief Complaint "just do what you need to do". History of Present Illness On presentation the ED Trey reported that he has been hearing things for 2 weeks. His last rx per PDMP was Valium in Jul and seems as though he missed at least 1 dose of Abilify maintenna. The voices tell him to kill himself and he has acted on them before with a drug OD. He is seeking treatment to decrease the angeles as he does not want to harm himself. Today he is in his room and as typical doesn't engage well with female physicians. He is not perseverating on Valium. He did not appear to recognize me despite the fact I have cared for him on multiple occasions. He is isolative and superficial in interactions. He is clear he does not want to resume Abilify as "what's the point, I told you that stuff doesn't do anything." He stated he hasn't slept for 10-15 days. He thanked me as a way to end the interview. Past Psychiatric History Previous Psych History: Previous Psych History: Current Psychiatric Diagnosis: Schizophrenia Outpatient Services: Outpatient Services: Psychiatrist - was Dr. Alves, now Dr. Pizarro at [facility] [employer] - Colin Guadalupe--in past, states currently not active. Refuses therapy Previous Psych Admissions: [facility]: 09/2016, 02/2019 - 05/2019; 06/2019, 08/2019, 11/06/2019, 12/2019, 02/2020, 06/2021 [facility]: 05/2019 [facility] - 04/2018 Several other inpatient psychiatric admissions - [facility], [facility], and a state hospitalization at [facility] (2014) Current Psychiatric Diagnosis: Schizophrenia Do You Have Access To A Gun?: No Describe Attempts in the Past: prior overdoses in 1999 and and in 09/2019 Tylenol overdose Past Medication Trials: 1. Zyprexa 2. Risperdal 3. Abilify 4. Haldol - dystonia 5. Amitriptyline 6. Imipramine 7. Ambien 8. Thorazine - NMS 9. Temazepam 10. Cymbalta - GI symptoms 11. Navane 12. Loxitane 13. Invega 14. Latuda 15. Ativan 16. Xanax 17. Seroquel 18. Clozapine 19. Alprazolam 20. Mirtazapine -discontinued during most recent hospitalization due to inefficacy 21. Clonidine -discontinued during most recent hospitalization due to fatigue, fall risk, and gait unsteadiness 22. Ziprasidone -discontinued during most recent hospitalization due to inefficacy 23. Clozapine -trial during most recent hospitalization, discontinued due to acute worsening of mental status with confusion, shuffling gait, cogwheel rigidity, and restlessness 24. Benztropine -for EPS 25. Trihexyphenidyl -for EPS 26. trilafon 27. Valium Current Psychiatric Diagnosis: schizophrenia Do You Have Access To A Gun?: No Allergies Allergy/AdvReac Type Severity Reaction Status Date / Time No Known Allergies Allergy Verified 06/26/21 17:56 Home Medications Medication Instructions Recorded Confirmed Type temazepam 15 mg capsule 15 mg PO HS PRN 10/25/20 10/19/21 History diazepam 5 mg tablet 5 mg PO HS PRN 06/26/21 10/19/21 History aripiprazole 300 mg suspension, 300 mg IM MONTHLY 10/19/21 10/19/21 History extended rel. intramuscular syringe (Madie Aleman) Family History Family History of: Psychosis/ThoughtDisorder (mother) and Suicide Completion (cousin) Alcohol History Hx of Alcohol Use Over the Past 12 Months: No Smoking Use Have You Smoked or Used Tobacco Products in the Last 30 Days: No tobacco type: cigarettes Smoking Status: Never smoker Substance History Hx of Prescription Med Misuse Over the Past 12 Months: No Hx of Over the Counter Med Misuse Over the Past 12 Months: No Hx of Inhalent Misuse Over the Past 12 Months: No Hx of Organic Substance Use Over the Past 12 Months: No Hx of Illegal Substances/Street Drug Use Over Past 12 Months: No Problems as a Result of Past Substance Use: None Identified Personal History [facility] [facility] Highest Grade Completed: College Employment Status: Disabled Marital Status: Single Number Of Children: 0 Beliefs That Will Affect Care: None Hx Legal Problems: No Hx Traumatic Life Events: No Patient History Medical History Benzodiazepine abuse Closed head injury Fall Hypertension Hypokalemia Leukocytosis (08/14/13) Rhabdomyolysis (07/21/13) Scalp laceration Schizophrenia Tobacco use disorder Surgical History No pertinent past surgical history Family History Father Cancer Mother Cancer Other No pertinent family history Denies family history of Hearing loss No family history of adverse response to anesthesia No family history of bleeding disorder Heart disease Allergies Hypertension Stroke Asthma Social History Smoking Status: Never smoker Tobacco Type: Cigarettes packs per day: 1; Hx Alcohol Use: No Hx Substance Use: No Preferred Language: Romanian Communication Ability: Effective Visual Impairment: No Limitations Hearing Ability: Normal [employer]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 Beliefs That Will Affect Care: None marital status: Single Current Living Situation: Alone current occupational status: retired Feels Safe at Home: Yes Assistive Devices: None Review of Systems Review of Systems: All systems reviewed & are unremarkable except as noted in HPI & below Physical Exam Psychiatric: Orientation: alert, oriented to person and oriented to place Apperance: appropriately dressed and appropriately groomed Eye Contact: + fair eye contact Motor Behavior: no abnormal motor movements Speech: normal rate/rhythm/volume of speech Affect: + flat affect Mood: + depressed mood Thought Process: + concrete thought process Thought Content: + delusions Suicidal Thoughts: denies suicidal thoughts Homicidal Thoughts: denies homicidal thoughts Hallucinations: + auditory hallucinations; no visual hallucinations Cognition: language grossly intact; + attention not intact Estimated Intelligence: consistent with education level Insight: + poor insight Judgement: + poor judgement Vital Signs (Past 24 Hours): Last Vital Signs Temp 37 C 10/20/21 06:31 Pulse 73 10/20/21 06:32 Resp 16 10/20/21 06:31 BP 135/72 10/20/21 06:32 Pulse Ox 96 10/19/21 18:00 Exam Statement: A physical exam was performed in the ED by Dr. Stover for the purposes of medical clearance. I accept that physical as correct and adequate for the purposes of the inpatient physical exam. Results & Data ([facility]) Laboratory Results Laboratory Results - last 24 hr 10/19/21 10/19/21 10/19/21 12:26 12:26 12:26 WBC 8.27 RBC 4.69 L Hgb 15.0 Hct 43.7 MCV 93.2 MCH 32.0 MCHC 34.3 RDW Std Deviation 43.9 RDW Coeff of Namita 13.0 Plt Count 328 MPV 9.2 Immature Gran % (Auto) 0.2 Neut % (Auto) 72.6 Lymph % (Auto) 16.0 Dunn % (Auto) 9.6 Eos % (Auto) 1.2 Baso % (Auto) 0.4 Neut # (Auto) 6.01 Lymph # (Auto) 1.32 Dunn # (Auto) 0.79 H Eos # (Auto) 0.10 Baso # (Auto) 0.03 Immature Gran # (Auto) 0.02 Sodium 136 Potassium 4.2 Chloride 101 Carbon Dioxide 28 Anion Gap 7 BUN 10 Creatinine 0.82 Est Cr Clr Drug Dosing 72.8 Est GFR ( Amer) 100.3 Est GFR (Non-Af Amer) 86.5 BUN/Creatinine Ratio 12.2 Glucose 100 H Estimat Average Glucose Hemoglobin A1c Calcium 9.7 Total Bilirubin 0.5 AST 24 ALT 21 Alkaline Phosphatase 94 Total Protein 7.1 Albumin 4.2 Globulin 2.9 Albumin/Globulin Ratio 1.4 Triglycerides Cholesterol LDL Cholesterol, Calc VLDL Cholesterol, Calc HDL Cholesterol Cholesterol/HDL Ratio TSH 0.812 Urine Color Urine Appearance Urine pH Ur Specific Fifield Urine Protein Urine Glucose (UA) Urine Ketones Urine Blood Urine Nitrite Urine Bilirubin Urine Urobilinogen Ur Leukocyte Esterase Urine WBC (Auto) Urine RBC (Auto) U Hyaline Cast (Auto) U Epithel Cells (Auto) Urine Bacteria (Auto) Salicylates Urine Opiates Screen Ur Methadone, Qual Acetaminophen Urine Barbiturates Ur Phencyclidine (PCP) U Amphetamin/Meth Scrn MDMA (Ecstasy) Screen U Benzodiazepines Scrn Ur Cocaine Metabolite U Marijuana (THC) Screen Ethyl Alcohol mg/dL SARS-CoV-2, RNA, NAAT 10/19/21 10/19/21 10/19/21 12:26 12:26 12:47 WBC RBC Hgb Hct MCV MCH MCHC RDW Std Deviation RDW Coeff of Namita Plt Count MPV Immature Gran % (Auto) Neut % (Auto) Lymph % (Auto) Dunn % (Auto) Eos % (Auto) Baso % (Auto) Neut # (Auto) Lymph # (Auto) Dunn # (Auto) Eos # (Auto) Baso # (Auto) Immature Gran # (Auto) Sodium Potassium Chloride Carbon Dioxide Anion Gap BUN Creatinine Est Cr Clr Drug Dosing Est GFR ( Amer) Est GFR (Non-Af Amer) BUN/Creatinine Ratio Glucose Estimat Average Glucose Hemoglobin A1c Calcium Total Bilirubin AST ALT Alkaline Phosphatase Total Protein Albumin Globulin Albumin/Globulin Ratio Triglycerides Cholesterol LDL Cholesterol, Calc VLDL Cholesterol, Calc HDL Cholesterol Cholesterol/HDL Ratio TSH Urine Color [place] Urine Appearance Clear Urine pH 7.0 Ur Specific Fifield 1.005 Urine Protein Negative Urine Glucose (UA) Negative Urine Ketones Negative Urine Blood Trace H Urine Nitrite Positive A Urine Bilirubin Negative Urine Urobilinogen Negative Ur Leukocyte Esterase 2+ H Urine WBC (Auto) 10-30 H Urine RBC (Auto) 0-4 U Hyaline Cast (Auto) 0 U Epithel Cells (Auto) 0-5 Urine Bacteria (Auto) 2+ H Salicylates < 3.0 L Urine Opiates Screen Ur Methadone, Qual Acetaminophen < 3 L Urine Barbiturates Ur Phencyclidine (PCP) U Amphetamin/Meth Scrn MDMA (Ecstasy) Screen U Benzodiazepines Scrn Ur Cocaine Metabolite U Marijuana (THC) Screen Ethyl Alcohol mg/dL < 10.0 SARS-CoV-2, RNA, NAAT 10/19/21 10/19/21 10/20/21 12:47 12:47 08:35 WBC RBC Hgb Hct MCV MCH MCHC RDW Std Deviation RDW Coeff of Namita Plt Count MPV Immature Gran % (Auto) Neut % (Auto) Lymph % (Auto) Dunn % (Auto) Eos % (Auto) Baso % (Auto) Neut # (Auto) Lymph # (Auto) Dunn # (Auto) Eos # (Auto) Baso # (Auto) Immature Gran # (Auto) Sodium Potassium Chloride Carbon Dioxide Anion Gap BUN Creatinine Est Cr Clr Drug Dosing Est GFR ( Amer) Est GFR (Non-Af Amer) BUN/Creatinine Ratio Glucose Estimat Average Glucose 105 Hemoglobin A1c 5.3 Calcium Total Bilirubin AST ALT Alkaline Phosphatase Total Protein Albumin Globulin Albumin/Globulin Ratio Triglycerides Cholesterol LDL Cholesterol, Calc VLDL Cholesterol, Calc HDL Cholesterol Cholesterol/HDL Ratio TSH Urine Color Urine Appearance Urine pH Ur Specific Fifield Urine Protein Urine Glucose (UA) Urine Ketones Urine Blood Urine Nitrite Urine Bilirubin Urine Urobilinogen Ur Leukocyte Esterase Urine WBC (Auto) Urine RBC (Auto) U Hyaline Cast (Auto) U Epithel Cells (Auto) Urine Bacteria (Auto) Salicylates Urine Opiates Screen Neg Ur Methadone, Qual Neg Acetaminophen Urine Barbiturates Neg Ur Phencyclidine (PCP) Neg U Amphetamin/Meth Scrn Neg MDMA (Ecstasy) Screen Neg U Benzodiazepines Scrn Neg Ur Cocaine Metabolite Neg U Marijuana (THC) Screen Neg Ethyl Alcohol mg/dL SARS-CoV-2, RNA, NAAT NEGATIVE 10/20/21 08:35 WBC RBC Hgb Hct MCV MCH MCHC RDW Std Deviation RDW Coeff of Namita Plt Count MPV Immature Gran % (Auto) Neut % (Auto) Lymph % (Auto) Dunn % (Auto) Eos % (Auto) Baso % (Auto) Neut # (Auto) Lymph # (Auto) Dunn # (Auto) Eos # (Auto) Baso # (Auto) Immature Gran # (Auto) Sodium Potassium Chloride Carbon Dioxide Anion Gap BUN Creatinine Est Cr Clr Drug Dosing Est GFR ( Amer) Est GFR (Non-Af Amer) BUN/Creatinine Ratio Glucose Estimat Average Glucose Hemoglobin A1c Calcium Total Bilirubin AST ALT Alkaline Phosphatase Total Protein Albumin Globulin Albumin/Globulin Ratio Triglycerides 46 Cholesterol 132 LDL Cholesterol, Calc 67 VLDL Cholesterol, Calc 9 HDL Cholesterol 56 Cholesterol/HDL Ratio 2.4 TSH Urine Color Urine Appearance Urine pH Ur Specific Fifield Urine Protein Urine Glucose (UA) Urine Ketones Urine Blood Urine Nitrite Urine Bilirubin Urine Urobilinogen Ur Leukocyte Esterase Urine WBC (Auto) Urine RBC (Auto) U Hyaline Cast (Auto) U Epithel Cells (Auto) Urine Bacteria (Auto) Salicylates Urine Opiates Screen Ur Methadone, Qual Acetaminophen Urine Barbiturates Ur Phencyclidine (PCP) U Amphetamin/Meth Scrn MDMA (Ecstasy) Screen U Benzodiazepines Scrn Ur Cocaine Metabolite U Marijuana (THC) Screen Ethyl Alcohol mg/dL SARS-CoV-2, RNA, NAAT Current Inpatient Medications Current Inpatient Medications: Current Inpatient Medications Acetaminophen (Acetaminophen 325 Mg Tab) 650 mg PO Q4H PRN PRN Reason: Headache or Minor Fever Stop: 11/18/21 17:25 Al Hydrox/Mg Hydrox/Simethicone (Aluminum/Magnesium Susp 30 Ml Udc) 30 ml PO Q4H PRN PRN Reason: GI Upset Stop: 11/18/21 17:25 Bismuth Subsalicylate (Bismuth Subsalicylate Liqd 236 Ml) 15 ml PO PRN PRN PRN Reason: Loose Stool Stop: 11/18/21 17:25 Diazepam (Diazepam 5 Mg Tablet) 5 mg PO HS PRN PRN Reason: Sleep Stop: 11/18/21 17:24 Hydroxyzine HCl (Hydroxyzine Hcl 25 Mg Tab) 50 mg PO HSZ PRN PRN Reason: Insomnia Stop: 11/18/21 17:25 Hydroxyzine HCl (Hydroxyzine Hcl 25 Mg Tab) 25 mg PO Q4H PRN PRN Reason: Anxiety Stop: 11/18/21 17:25 Magnesium Hydroxide (Magnesium Hydroxide Susp 30 Ml Udc) 30 ml PO DAILY PRN PRN Reason: Constipation Stop: 11/18/21 17:25 Sodium Chloride (Sodium Chloride 0.65% Na Soln 45 Ml ([place])) 1 - 2 sprays NA PRN PRN PRN Reason: Nasal Dryness/Congestion Stop: 11/18/21 17:25 Temazepam (Temazepam 15 Mg Capsule) 15 mg PO HS PRN PRN Reason: Sleep Stop: 11/18/21 17:24
[2021-10-20] MEDS ORDERED: LURASIDONE HCL 40 MG TAB PO SCH (17:15)
[2021-10-20] MEDS: TEMAZEPAM 15 MG CAPSULE PO SCH (21:15)
--- NOTE | 2021-10-21 10:04 | Psychiatric Progress Note ---
Date of Service October 21, 2021 Impression / Recommendations Yanique Ayala is a 76-year-old male with a history of schizophrenia and multiple admissions for SI and auditory command hallucinations, particularly in the context of med non compliance. At baseline he has a delusion about noise in his head/buzzing for which he feels the only cure is Valium which he has misused in the past. The patient is deemed unstable and requires psychiatric hospitalization for safety and stabilization, medication management and development of further coping skills. MNPR for a history of poor boundaries, intolerance of peers, and age given COVID pandemic. 10/21/21: He experienced side effect with latuda and unwilling to try it again tonight, discussed alternatives and he agreed to try risperidone, reviewed risks/benefits including but not limited to muscle/TD/EPS, metabolic effects. Remains uninterested in considering other medication options for sleep, reviewed risks of temazepam including addictive potential, falls, cognitive impacts. He has been on it for many years chronically though has not taken it since july due to lack of follow-up with providers so may be appropriate time to consider alternative sleep option. Discussed seeing if risperidone helps and if not may consider mirtazapine. Adding melatonin. (1) Schizophrenia: 10/21/21: Discontinue latuda due to restless legs. Start risperidone 0.25 qAM & 0.5 mg qHS. Temazepam for now, considering safer options given his age. 10/20/21: The patient was admitted to the [facility] ([facility] mental health unit) on q15 min checks (behavioral with suicide precautions) for safety. The patient will participate in group, recreational, and milieu therapies and will be offered additional individual and family sessions as clinically appropriate. Risks/benefits/alternatives reviewed re: Latuda for hallucinations, I don't have immediate evidence that he has tried it before and there would be no means to try Vraylar or Rexulti as non-formulary. It would hopefully help from a depr ession standpoint as well. He is well aware of risks/benefits/TD/metabolic issues with antipsychotics and did have fasting labs this am. Inventory Assets Strengths: has engaged with case management in past, housing Needs: resume outpatient med management, compliance Risk Factors Assessment Male: Yes : Yes Do You Have Access To A Gun?: No Mental Health Diagnoses: Yes Previous Attempt: Yes Previous Psychiatric Hospitalization: Yes Protective Factors Assessment Employed: No Stable Relationships: No Supportive Family: No Interval History Identifying Information SCOTT ROBERTO is a 76-year-old M who currently lives in [place], multiple inpatient admissions to (most recent June 2021), was admitted on 10/19/21 17:26 on a 201 voluntary commitment for command hallucinations. Chief Complaint "I can't deal with these voices, I need sleep and I need the restoril". Review of Systems Sleep Information Total Hours of Sleep: 6.25 Meal Information Percent Meal Consumed - Breakfast: 100 Percent Meal Consumed - Lunch: 100 Percent Meal Consumed - Dinner: 100 Subjective Subjective Patient was seen & assessed and interval progress reviewed with treatment team nursing and social work. He endorses ongoing command AH telling him "to commit suicide" and sounds of buzzing. He states he has been sleeping poorly over the last "16 days" and becomes very frustrated with discussions about reducing or limiting his restoril. Discussed at length the need to find safer alternatives to help with sleep which he was very resistant to stating "nothing else works" and when medication suggestions were made he stated "that didn't work". He became quite irritable and agitated with this discussion. Stated that latuda gave him restless leg syndrome and he refuses to take this anymore. Reviewed that he seemed to do ok since June without restoril since he stopped seeing Dr. Pizarro to which he stated "I just never slept". Physical Exam Psychiatric Orientation: alert, oriented to person and oriented to place Apperance: appropriately dressed and appropriately groomed Eye Contact: + fair eye contact Motor Behavior: no abnormal motor movements Speech: normal rate/rhythm/volume of speech Affect: + irritable affect and + angry affect Mood: + depressed mood, + irritable mood and + angry mood Thought Process: + concrete thought process Thought Content: + delusions Suicidal Thoughts: denies suicidal plan and denies suicidal intent; + reports suicidal thoughts (intermittent command AH) Homicidal Thoughts: denies homicidal thoughts Hallucinations: + auditory hallucinations; no visual hallucinations Cognition: language grossly intact; + attention not intact Estimated Intelligence: consistent with education level Insight: + poor insight Judgement: + poor judgement Vital Signs (Past 24 Hours) Last Vital Signs Temp 37 C 10/21/21 05:52 Pulse 66 10/21/21 05:54 Resp 18 10/21/21 05:52 BP 124/79 10/21/21 05:54 Pulse Ox 96 10/19/21 18:00 Results & Data ([facility]) Current Inpatient Medications Current Inpatient Medications: Current Inpatient Medications Acetaminophen (Acetaminophen 325 Mg Tab) 650 mg PO Q4H PRN PRN Reason: Headache or Minor Fever Stop: 11/18/21 17:25 Al Hydrox/Mg Hydrox/Simethicone (Aluminum/Magnesium Susp 30 Ml Udc) 30 ml PO Q4H PRN PRN Reason: GI Upset Stop: 11/18/21 17:25 Bismuth Subsalicylate (Bismuth Subsalicylate Liqd 236 Ml) 15 ml PO PRN PRN PRN Reason: Loose Stool Stop: 11/18/21 17:25 Hydroxyzine HCl (Hydroxyzine Hcl 25 Mg Tab) 50 mg PO HSZ PRN PRN Reason: Insomnia Stop: 11/18/21 17:25 Hydroxyzine HCl (Hydroxyzine Hcl 25 Mg Tab) 25 mg PO Q4H PRN PRN Reason: Anxiety Stop: 11/18/21 17:25 Lurasidone HCl (Lurasidone Hcl 40 Mg Tab) 40 mg PO DAILYBD MAG Stop: 11/19/21 17:14 Last Admin: 10/20/21 17:23 Dose: 40 mg Documented by: Magnesium Hydroxide (Magnesium Hydroxide Susp 30 Ml Udc) 30 ml PO DAILY PRN PRN Reason: Constipation Stop: 11/18/21 17:25 Sodium Chloride (Sodium Chloride 0.65% Na Soln 45 Ml ([place])) 1 - 2 sprays NA PRN PRN PRN Reason: Nasal Dryness/Congestion Stop: 11/18/21 17:25 Temazepam (Temazepam 15 Mg Capsule) 15 mg PO HS MAG Stop: 11/19/21 21:59 Last Admin: 10/20/21 21:15 Dose: 15 mg Documented by: Post Discharge Appointments Primary Care Physician Name Of Family Doctor: [facility] - Dr. Jeff Lopez Primary Care Provider Appointment Comment: [address] [facility], [address], [place], [place] Contact Information Discharge Discharge Address: [address] [place] [address], [address], [place] [address] (1) Schizophrenia Schizophrenia type: unspecified Qualified Code(s): F20.9 - Schizophrenia, unspecified
[2021-10-21] MEDS ORDERED: risperiDONE 0.5 MG TABLET PO SCH ×2 (10:45→22:00)
[2021-10-21] MEDS: TEMAZEPAM 15 MG CAPSULE PO SCH (21:28)
[2021-10-21] MEDS: MELATONIN 3 MG TAB PO SCH (21:34)
[2021-10-22] MEDS ORDERED: risperiDONE 0.5 MG TABLET PO SCH (09:00)
--- NOTE | 2021-10-22 09:05 | Psychiatric Progress Note ---
Date of Service October 22, 2021 Impression / Recommendations Yanique Ayala is a 76-year-old male with a history of schizophrenia and multiple admissions for SI and auditory command hallucinations, particularly in the context of med non compliance. At baseline he has a delusion about noise in his head/buzzing for which he feels the only cure is Valium which he has misused in the past. The patient is deemed unstable and requires psychiatric hospitalization for safety and stabilization, medication management and development of further coping skills. MNPR for a history of poor boundaries, intolerance of peers, and age given COVID pandemic. 10/22/21: Improved sleep last night. Continues to have AH. He consents to risperidone titration. Remains resistant to discussion of alternative sleep medications. (1) Schizophrenia: 10/22/21: Increase risperidone to 0.5 mg BID. Continue temazepam as he refuses consideration of any other medications for sleep. 10/21/21: Discontinue latuda due to restless legs. Start risperidone 0.25 qAM & 0.5 mg qHS. Temazepam for now, considering safer options given his age. 10/20/21: The patient was [facility] to the [facility] on q15 min checks (behavioral with suicide precautions) for safety. The patient will participate in group, recreational, and milieu therapies and will be offered additional individual and family sessions as clinically appropriate. Risks/benefits/alternatives reviewed re: Latuda for hallucinations, I don't have immediate evidence that he has tried it before and there would be no means to try Vraylar or Rexulti as non-formulary. It would hopefully help from a depression standpoint as well. He is well aware of risks/benefits/TD/metabolic issues with antipsychotics and did have fasting labs this am. Inventory Assets Strengths: has engaged with case management in past, housing Needs: resume outpatient med management, compliance Risk Factors Assessment Male: Yes : Yes Do You Have Access To A Gun?: No Mental Health Diagnoses: Yes Previous Attempt: Yes Previous Psychiatric Hospitalization: Yes Protective Factors Assessment Employed: No Stable Relationships: No Supportive Family: No Interval History Identifying Information SCOTT ROBERTO is a 76-year-old M who currently lives in [place], multiple inpatient admissions to (most recent June 2021), was admitted on 10/19/21 17:26 on a 201 voluntary commitment for command hallucinations. Chief Complaint "I'm fine". Review of Systems Sleep Information Total Hours of Sleep: 7.5 Meal Information Percent Meal Consumed - Breakfast: 100 Percent Meal Consumed - Lunch: 100 Percent Meal Consumed - Dinner: 100 Subjective Subjective Patient was seen & assessed and interval progress reviewed with treatment team nursing and social work. Isolative but more polite with staff. Showered. Slept well last night. Eating well. Declined groups except briefly community meeting. Not interacting with peers. Reports his sleep was "ok". He reports still hearing voices and hasn't noticed any difference with addition of risperidone but also no side effects. Discussed the restoril after I provided him with literature regarding preferred medications for insomnia in older adults. He reports the literature is "the most ridiculous thing I've ever seen". Remains focused on restoril being the only good option for sleep but he is willing to compromise in continuing risperidone. Physical Exam Psychiatric Orientation: alert, oriented to person and oriented to place Apperance: appropriately dressed and appropriately groomed Eye Contact: + fair eye contact Motor Behavior: no abnormal motor movements Speech: normal rate/rhythm/volume of speech Affect: + flat affect and + irritable affect Mood: + irritable mood Thought Process: + concrete thought process Thought Content: + delusions Suicidal Thoughts: denies suicidal plan and denies suicidal intent; + reports suicidal thoughts (intermittent command AH) Homicidal Thoughts: denies homicidal thoughts Hallucinations: + auditory hallucinations; no visual hallucinations Cognition: attention grossly intact and language grossly intact Estimated Intelligence: consistent with education level Insight: + poor insight Judgement: + poor judgement Vital Signs (Past 24 Hours) Last Vital Signs Temp 36.9 C 10/22/21 06:39 Pulse 73 10/22/21 06:40 Resp 16 10/22/21 06:39 BP 114/69 10/22/21 06:40 Pulse Ox 96 10/19/21 18:00 Results & Data ([facility]) Current Inpatient Medications Current Inpatient Medications: Current Inpatient Medications Acetaminophen (Acetaminophen 325 Mg Tab) 650 mg PO Q4H PRN PRN Reason: Headache or Minor Fever Stop: 11/18/21 17:25 Al Hydrox/Mg Hydrox/Simethicone (Aluminum/Magnesium Susp 30 Ml Udc) 30 ml PO Q4H PRN PRN Reason: GI Upset Stop: 11/18/21 17:25 Bismuth Subsalicylate (Bismuth Subsalicylate Liqd 236 Ml) 15 ml PO PRN PRN PRN Reason: Loose Stool Stop: 11/18/21 17:25 Hydroxyzine HCl (Hydroxyzine Hcl 25 Mg Tab) 50 mg PO HSZ PRN PRN Reason: Insomnia Stop: 11/18/21 17:25 Hydroxyzine HCl (Hydroxyzine Hcl 25 Mg Tab) 25 mg PO Q4H PRN PRN Reason: Anxiety Stop: 11/18/21 17:25 Magnesium Hydroxide (Magnesium Hydroxide Susp 30 Ml Udc) 30 ml PO DAILY PRN PRN Reason: Constipation Stop: 11/18/21 17:25 Melatonin (Melatonin 3 Mg Tab) 3 mg PO HS MAG Stop: 11/20/21 21:59 Last Admin: 10/21/21 21:34 Dose: Not Given Documented by: Risperidone (Risperidone 0.5 Mg Tablet) 0.5 mg PO HS MAG Stop: 11/20/21 21:59 Last Admin: 10/21/21 21:28 Dose: 0.5 mg Documented by: Risperidone (Risperidone 0.5 Mg Tablet) 0.25 mg PO QAM MAG Stop: 11/21/21 08:59 Last Admin: 10/22/21 08:41 Dose: 0.25 mg Documented by: Sodium Chloride (Sodium Chloride 0.65% Na Soln 45 Ml ([place])) 1 - 2 sprays NA PRN PRN PRN Reason: Nasal Dryness/Congestion Stop: 11/18/21 17:25 Temazepam (Temazepam 15 Mg Capsule) 15 mg PO HS MAG Stop: 11/19/21 21:59 Last Admin: 10/21/21 21:28 Dose: 15 mg Documented by: Post Discharge Appointments Primary Care Physician Name Of Family Doctor: [facility] - Dr. Jeff Lopez Primary Care Provider Appointment Comment: [address], [address], [place], [place] Contact Information Discharge Discharge [address]: [address] [place] [address], [address], [place] [address] (1) Schizophrenia Schizophrenia type: unspecified Qualified Code(s): F20.9 - Schizophrenia, unspecified
[2021-10-22] MEDS: MELATONIN 3 MG TAB PO SCH (21:11)
[2021-10-22] MEDS: risperiDONE 0.5 MG TABLET PO SCH (21:12)
[2021-10-22] MEDS: TEMAZEPAM 15 MG CAPSULE PO SCH (21:12)
[2021-10-23] MEDS: risperiDONE 0.5 MG TABLET PO SCH (08:33)
--- NOTE | 2021-10-23 10:43 | Psychiatric Progress Note ---
Date of Service October 23, 2021 Impression / Recommendations Impression Jamie is a 76-year-old male with a history of schizophrenia and multiple admissions for SI and auditory command hallucinations, particularly in the context of med non compliance. At baseline he has a delusion about noise in his head/buzzing for which he feels the only cure is Valium which he has misused in the past. The patient is deemed unstable and requires psychiatric hospitalization for safety and stabilization, medication management and development of further coping skills. MNPR for a history of poor boundaries, intolerance of peers, and age given COVID pandemic. 10/23/21: More consistent sleep. Continues to have AH. He consents to ongoing risperidone titration which he is tolerating without any side effects. UA culture positive for karla muhammad, odetteided hospitalist service for recommendations regarding antibiotic choice as he endorses symptoms of UTI. Remains resistant to discussion of alternative sleep medications. Left message with Dr. Pizarro, his previous psychiatrist, to see if he would consider re- initiating care with Jamie after discharge. Jamie continues to feel unsafe outside of the hospital setting due to cAH. (1) Schizophrenia: 10/23/21: Increase risperidone to 0.5 mg qAM & 1 mg qHS. Continue temazepam. Will start antibiotic for UTI. 10/22/21: Increase risperidone to 0.5 mg BID. Continue temazepam as he refuses consideration of any other medications for sleep. 10/21/21: Discontinue latuda due to restless legs. Start risperidone 0.25 qAM & 0.5 mg qHS. Temazepam for now, considering safer options given his age. 10/20/21: The patient was admitted to the [facility] ([facility] unit) on q15 min checks (behavioral with suicide precautions) for safety. The patient will participate in group, recreational, and milieu therapies and will be offered additional individual and family sessions as clinically appropriate. Risks/benefits/alternatives reviewed re: Latuda for hallucinations, I don't have immediate evidence that he has tried it before and there would be no means to try Vraylar or Rexulti as non-formulary. It would hopefully help from a depression standpoint as well. He is well aware of risks/benefits/TD/metabolic issues with antipsychotics and did have fasting labs this am. Inventory Assets Strengths: has engaged with case management in past, housing Needs: resume outpatient med management, compliance Risk Factors Assessment Male: Yes : Yes Do You Have Access To A Gun?: No Mental Health Diagnoses: Yes Previous Attempt: Yes Previous Psychiatric Hospitalization: Yes Protective Factors Assessment Employed: No Stable Relationships: No Supportive Family: No Interval History Identifying Information SCOTT ROBERTO is a 76-year-old M who currently lives in [place], multiple inpatient admissions to (most recent June 2021), was admitted on 10/19/21 17:26 on a 201 voluntary commitment for command hallucinations. Chief Complaint "Nothing has ever helped with the voices". Review of Systems Sleep Information Total Hours of Sleep: 7.25 Meal Information Percent Meal Consumed - Breakfast: 100 Percent Meal Consumed - Lunch: 100 Percent Meal Consumed - Dinner: 100 Subjective Subjective Patient was seen & assessed and interval progress reviewed with treatment team nursing and social work. Jamie reports "fair" sleep with restoril. Denies any side effects from risperidone but also hasn't noticed any benefit. Continues to have command auditory hallucinations telling him to "kill myself" but denies that they are giving him any instructions about plan or intent. Discussed results of [employer] culture. Jamie denies hx of prostate issues, denies any recent burning with urination but has been experiencing difficulty initiating urinary flow and urination "taking longer" over the last 30 days. Physical Exam Psychiatric Orientation: alert, oriented to person and oriented to place Apperance: appropriately dressed and appropriately groomed Eye Contact: + fair eye contact Motor Behavior: no abnormal motor movements Speech: normal rate/rhythm/volume of speech Affect: + flat affect Mood: + depressed mood and + irritable mood Thought Process: + concrete thought process Thought Content: + delusions Suicidal Thoughts: denies suicidal plan and denies suicidal intent; + reports suicidal thoughts (intermittent command AH) Homicidal Thoughts: denies homicidal thoughts Hallucinations: + auditory hallucinations; no visual hallucinations Cognition: attention grossly intact and language grossly intact Estimated Intelligence: consistent with education level Insight: + poor insight Judgement: + poor judgement Vital Signs (Past 24 Hours) Last Vital Signs Temp 37 C 10/23/21 06:34 Pulse 80 10/23/21 06:35 Resp 16 10/23/21 06:34 BP 121/75 10/23/21 06:35 Pulse Ox 96 10/19/21 18:00 Results & Data ([email or web address] Current Inpatient Medications Current Inpatient Medications: Current Inpatient Medications Acetaminophen (Acetaminophen 325 Mg Tab) 650 mg PO Q4H PRN PRN Reason: Headache or Minor Fever Stop: 11/18/21 17:25 Al Hydrox/Mg Hydrox/Simethicone (Aluminum/Magnesium Susp 30 Ml Udc) 30 ml PO Q4H PRN PRN Reason: GI Upset Stop: 11/18/21 17:25 Bismuth Subsalicylate (Bismuth Subsalicylate Liqd 236 Ml) 15 ml PO PRN PRN PRN Reason: Loose Stool Stop: 11/18/21 17:25 Hydroxyzine HCl (Hydroxyzine Hcl 25 Mg Tab) 50 mg PO HSZ PRN PRN Reason: Insomnia Stop: 11/18/21 17:25 Hydroxyzine HCl (Hydroxyzine Hcl 25 Mg Tab) 25 mg PO Q4H PRN PRN Reason: Anxiety Stop: 11/18/21 17:25 Magnesium Hydroxide (Magnesium Hydroxide Susp 30 Ml Udc) 30 ml PO DAILY PRN PRN Reason: Constipation Stop: 11/18/21 17:25 Melatonin (Melatonin 3 Mg Tab) 3 mg PO HS MAG Stop: 11/20/21 21:59 Last Admin: 10/22/21 21:11 Dose: Not Given Documented by: Risperidone (Risperidone 0.5 Mg Tablet) 0.5 mg PO BID MAG Stop: 11/21/21 20:59 Last Admin: 10/23/21 08:33 Dose: 0.5 mg Documented by: Sodium Chloride (Sodium Chloride 0.65% Na Soln 45 Ml ([place])) 1 - 2 sprays NA PRN PRN PRN Reason: Nasal Dryness/Congestion Stop: 11/18/21 17:25 Temazepam (Temazepam 15 Mg Capsule) 15 mg PO HS MAG Stop: 11/19/21 21:59 Last Admin: 10/22/21 21:12 Dose: 15 mg Documented by: Post Discharge Appointments Primary Care Physician Name Of Family Doctor: [facility] - Dr. Jeff Lopez Primary Care Provider Appointment Comment: [address], [address], [place], [place] Contact Information Discharge Discharge Address: [address] [place] [address], [place] [address], [place] [address] (1) Schizophrenia Schizophrenia type: unspecified Qualified Code(s): F20.9 - Schizophrenia, unspecified
--- NOTE | 2021-10-23 11:36 | Hospitalist Consultation ---
Date of Consultation October 23, 2021 Assessment & Plan (1) Acute UTI (urinary tract infection): Attending: Dr. Villagomez Impression: 76-year-old male with voluntary admission to [facility] for auditory hallucinations. Patient complained of difficulty with urination particularly with stream interruption. Urinalysis was completed and showed nitrate as well as occult blood. Culture reveals coag negative staph resistant oxacillin. Patient has no symptoms of prostatitis. He denies any history of prostate cancer. He has no fever, chills, sweats, rigors. No other acute complaints regarding urinary tract system. Recommendations: Patient has history of recurrent urinary tract infections per review of chart I suspect the patient has some level of BPH that has gone untreated We will start the patient on Bactrim for a 7-day course. Labs were reviewed and patient has no renal failure or hyponatremia Check labs in 3 days to include CBC, BMP We will also start patient on Flomax for his suspected BPH. I would continue this on discharge until seen by either urology or primary care provider (2) Hypertension: Patient with reported history of hypertension. Not on any home antihypertensives Patient continues on diazepam, temazepam, and Abilify per psychiatry Blood pressure currently with a systolic reading of 121 No further antihypertensives. However should be noted we are starting patient on Flomax Continue vital signs per protocol Outpatient management on discharge (3) BPH (benign prostatic hyperplasia): No reported history of BPH in the record No evidence of urology notes Due to patient's current acute issues with his schizophrenia and behavioral issues, will empirically treat with Flomax daily Patient should have digital rectal examination either by urology or primary care physician on discharge No history of prostatitis or prostate cancer No record of a PSA in the chart Due to patient's age of 76 and history of tobacco abuse, patient should be followed closely as an outpatient (4) Hypokalemia: Patient with prior history of hypokalemia and hypomagnesemia Potassium currently is at 4.2 Outpatient management (5) Schizophrenia: Continue outpatient medications per psychiatry (6) Tobacco use disorder: Patient states that he quit smoking approximate 1 year ago Prior to that, patient reports that he smoked most of his adult life Routine cancer screening per protocol for 76-year-old male to be performed by primary care physician team Thank you for including us in the care of this patient. Patient will be seen by Dr. Villagomez later today. At this time the hospitalist service will sign off. Please feel free to call or reconsult with any further questions. Follow-up labs as listed above. Supervising Physician Co-Signing Physician Notes PA Supervision Note: I personally saw and examined the patient. I verified all aquino points and agree with SHA Cheney with the following exceptions and/or additions: This patient is a 76-year-old male with history of schizophrenia who is currently admitted to the inpatient behavioral health unit. The hospital service was consulted for an ongoing UTI and urinary symptoms as noted above. Patient denies any abdominal pains or blood in the urine, no fevers or chills. History and ROS reviewed as above Vitals reviewed Gen: AAOx3, NAD HEENT: Anicteric sclerae, EOMI CV: RRR no mgr nl S1S2 Pulm: CTAB no wcr Abd: +BS soft NT ND no masses or hernias Ext: No edema Skin: No rashes, warm/dry Neuro: Full strength throughout, gait normal Labs from this admission reviewed 76 yo male with a h/o schizophrenia, here with UTI and possibly enlarged prostate Treat with Bactrim x7 days Start Flomax Recommend follow-up with urology as an outpatient History of Present Illness Reason for Consultation: Uncomplicated urinary tract infection Requesting Physician: Dr. Silva Attending Physician: Sugey Alfredo MD History of Present Illness Attending: Dr. Villagomez Is a 76-year-old male with a past medical history including schizophrenia, altered mental status, acetaminophen overdose, hypertension, recurrent UTI, hypokalemia, past tobacco use disorder, rhabdomyolysis, hypomagnesemia. Patient has several past admissions to the behavioral health unit for command hallucinations in the past due to missing doses of his medication. The patient presented 10/19/2021 for voluntary commitment for command hallucinations. He reported that he had some urinary difficulty with starting and continuing his stream. He denies any hematuria. He has no pain with urination. He has no rectal pain. The patient denies any fever or chills. Blood pressure has been stable in the 120s systolically. WBC is 8.27. Urinalysis was checked and had blood as well as nitrates. Urine was then sent for culture and found to have coag negative staph resistant to oxacillin. Patient has previous history of UTI with Klebsiella Oxytoca but no evidence of urinary tract infection since 2019. Patient denies any history of prostatitis or BPH. He has no prior history of resistant urinary tract infection. There is no evidence of a PSA level. There are no notes in the current system from urology to suggest treatment for BPH or prostate cancer. Patient does have a past medical history including tobacco abuse. He states that he is smoked most of his adult life. He states that he quit smoking 1 year ago. Patient received [employer] vaccination for Covid on 11/02/2020 and 11/23/2020. Serology was negative for SARSCOV2 on 10/19/2021 Allergies Allergy/AdvReac Type Severity Reaction Status Date / Time No Known Allergies Allergy Verified 06/26/21 17:56 Home Medications Medication Instructions Recorded Confirmed Type temazepam 15 mg capsule 15 mg PO HS PRN 10/25/20 10/19/21 History diazepam 5 mg tablet 5 mg PO HS PRN 06/26/21 10/19/21 History aripiprazole 300 mg suspension, 300 mg IM MONTHLY 10/19/21 10/19/21 History extended rel. intramuscular syringe ([place] Love) Patient History Medical History (Updated 10/23/21 @ 11:27 by Shaquille Cheney PA-C) Benzodiazepine abuse BPH (benign prostatic hyperplasia) Closed head injury Fall Hypertension Hypokalemia Leukocytosis (08/14/13) Rhabdomyolysis (07/21/13) Scalp laceration Schizophrenia Tobacco use disorder Surgical History No pertinent past surgical history Family History Father Cancer Mother Cancer Other No pertinent family history Denies family history of Hearing loss No family history of adverse response to anesthesia No family history of bleeding disorder Heart disease Allergies Hypertension Stroke Asthma Social History (Updated 10/23/21 @ 11:25 by Shaquille Cheney PA-C) Smoking Status: Former smoker Tobacco Type: Cigarettes packs per day: 1; Number of Years Since Quit: 1; Hx Alcohol Use: No Hx Substance Use: No Preferred Language: Luxembourgish Communication Ability: Effective Visual Impairment: No Limitations Hearing Ability: Normal Zig Zag Stitcher Required: No Beliefs That Will Affect Care: None marital status: Single Current Living Situation: Alone current occupational status: retired Feels Safe at Home: Yes Assistive Devices: None Review of Systems Review of Systems: All systems reviewed & are unremarkable except as noted in Subjective Physical Exam Physical Exam: GENERAL : No acute distress. Pleasant. Talkative. EYES: No icterus, gaze conjugate NOSE: No evidence of epistaxis MOUTH: No lesions or candidiasis NECK: Supple LUNGS: CTA B/L, no wheezes, rales or rhonchi HEART: Regular, rate controlled ABDOMEN: Soft, NT, ND, BS Present EXTREMITIES: No LE edema, pedal pulses intact NEURO: A&OX3 Results & Data Results & Data ([facility]) Vital Signs (Past 12 Hours) Vital Signs Temp Pulse Resp BP 10/23/21 06:35 80 121/75 10/23/21 06:34 37 C 66 16 111/69 Critical Care Results & Data Vital Signs (Past 12 Hours) Vital Signs Temp Pulse Resp BP 10/23/21 06:35 80 121/75 10/23/21 06:34 37 C 66 16 111/69 Lab & Micro Results (Past 24 Hours) No Data to Display No Data to Display No Data to Display Microbiology 10/19/21 12:47 Urine Culture - Final Urine,Clean Catch Coag negative Staphylococcus Diagnostic Findings (Past 24 Hours) No radiological images this admission RT Ventilator Mngmt (Last Documented) Ventilator Ordered Settings Respiratory Rate 16 10/23/21 06:34 Ventilator - PT Measurements Respiratory Rate 16 PG Care Time/CCT Total # of Minutes Spent Total Time Spent with Patient: Total time spent is greater than 50% in coordination of care (as documented) at patient's floor/unit and/or counseling patient: 45 minutes Coding Level of Care Code 11370 Inpt Consult Level 3 Diagnoses Acute UTI (urinary tract infection) N39.0 Hypertension I10 Hypertension type: essential hypertension BPH (benign prostatic hyperplasia) N40.0 Hypokalemia E87.6 Schizophrenia F20.9 Schizophrenia type: unspecified Tobacco use disorder F17.200 Time Spent (min) 45 (1) Schizophrenia Schizophrenia type: unspecified Qualified Code(s): F20.9 - Schizophrenia, unspecified (2) Hypertension Hypertension type: essential hypertension Qualified Code(s): I10 - Essential (primary) hypertension
[2021-10-23] MEDS: SULFAMETHOXAZOLE/TRIMETHOPRIM DS 800/160MG TAB PO SCH ×2 (12:37→20:56)
[2021-10-23] MEDS: LACTOBACILLUS ACIDOPHILUS 1 GM PACK PO SCH ×2 (12:37→17:21)
[2021-10-23] MEDS: MELATONIN 3 MG TAB PO SCH (20:57)
[2021-10-23] MEDS: TAMSULOSIN HCL 0.4 MG CAP PO SCH (20:57)
[2021-10-23] MEDS: TEMAZEPAM 15 MG CAPSULE PO SCH (20:57)
[2021-10-23] MEDS ORDERED: risperiDONE 1 MG TABLET PO SCH (22:00)
[2021-10-24] MEDS: SULFAMETHOXAZOLE/TRIMETHOPRIM DS 800/160MG TAB PO SCH ×2 (08:26→21:38)
[2021-10-24] MEDS: LACTOBACILLUS ACIDOPHILUS 1 GM PACK PO SCH ×3 (08:26→17:09)
--- NOTE | 2021-10-24 08:55 | Psychiatric Progress Note ---
Date of Service October 24, 2021 Impression / Recommendations Yanique Ayala is a 76-year-old male with a history of schizophrenia and multiple admissions for SI and auditory command hallucinations, particularly in the context of med non compliance. At baseline he has a delusion about noise in his head/buzzing for which he feels the only cure is Valium which he has misused in the past. The patient is deemed unstable and requires psychiatric hospitalization for safety and stabilization, medication management and development of further coping skills. MNPR for a history of poor boundaries, intolerance of peers, and age given COVID pandemic. 10/24/21: Tolerating antibiotic for UTI. No side effects from risperidone but still with ongoing cAH which he reports are same intensity all day. Consents to further risperidone titration. (1) Schizophrenia: 10/24/21: Increase risperidone to 1mg BID. Continue temazepam, bactrim, flomax. 10/23/21: Increase risperidone to 0.5 mg qAM & 1 mg qHS. Continue temazepam. Will start antibiotic for UTI. 10/22/21: Increase risperidone to 0.5 mg BID. Continue temazepam as he refuses consideration of any other medications for sleep. 10/21/21: Discontinue latuda due to restless legs. Start risperidone 0.25 qAM & 0.5 mg qHS. Temazepam for now, considering safer options given his age. 10/20/21: The patient was admitted to the [facility] ([facility] mental health unit) on q15 min checks (behavioral with suicide precautions) for safety. The patient will participate in group, recreational, and milieu therapies and will be offered additional individual and family sessions as clinically appropriate. Risks/benefits/alternatives reviewed re: Latuda for hallucinations, I don't have immediate evidence that he has tried it before and there would be no means to try Vraylar or Rexulti as non-formulary. It would hopefully help from a depression standpoint as well. He is well aware of risks/benefits/TD/metabolic issues with antipsychotics and did have fasting labs this am. Inventory Assets Strengths: has engaged with case management in past, housing Needs: resume outpatient med management, compliance Risk Factors Assessment Male: Yes : Yes Do You Have Access To A Gun?: No Mental Health Diagnoses: Yes Previous Attempt: Yes Previous Psychiatric Hospitalization: Yes Protective Factors Assessment Employed: No Stable Relationships: No Supportive Family: No Interval History Identifying Information SCOTT ROBERTO is a 76-year-old M who currently lives in [place], multiple inpatient admissions to (most recent June 2021), was admitted on 10/19/21 17:26 on a 201 voluntary commitment for command hallucinations. Chief Complaint "I tossed and turned all night". Review of Systems Sleep Information Total Hours of Sleep: 6 Meal Information Percent Meal Consumed - Breakfast: 100 Percent Meal Consumed - Lunch: 100 Percent Meal Consumed - Dinner: 100 Subjective Subjective Patient was seen & assessed and interval progress reviewed with treatment team nursing and social work. Met with his case repairer and agreed to re-initiate services. Reports he did not sleep well last night but still feels like restoril "is the only thing that actually helps". No side effects to risperidone. Still hearing cAH telling him to "kill myself". Feels safe in the hospital. Tolerating antibiotic for UTI without side effects. Denies any dizziness. Physical Exam Psychiatric Orientation: alert, oriented to person and oriented to place Apperance: appropriately dressed and appropriately groomed Eye Contact: + fair eye contact Motor Behavior: no abnormal motor movements Speech: normal rate/rhythm/volume of speech Affect: + flat affect Mood: + depressed mood Thought Process: + concrete thought process Thought Content: + delusions Suicidal Thoughts: denies suicidal plan and denies suicidal intent; + reports suicidal thoughts (intermittent command AH) Homicidal Thoughts: denies homicidal thoughts Hallucinations: + auditory hallucinations; no visual hallucinations Cognition: attention grossly intact and language grossly intact Estimated Intelligence: consistent with education level Insight: + poor insight Judgement: + poor judgement Vital Signs (Past 24 Hours) Last Vital Signs Temp 36.6 C 10/24/21 05:59 Pulse 72 10/24/21 05:59 Resp 16 10/24/21 05:59 BP 100/64 10/24/21 05:59 Pulse Ox 96 10/19/21 18:00 Results & Data ([facility]) Current Inpatient Medications Current Inpatient Medications: Current Inpatient Medications Acetaminophen (Acetaminophen 325 Mg Tab) 650 mg PO Q4H PRN PRN Reason: Headache or Minor Fever Stop: 11/18/21 17:25 Al Hydrox/Mg Hydrox/Simethicone (Aluminum/Magnesium Susp 30 Ml Udc) 30 ml PO Q4H PRN PRN Reason: GI Upset Stop: 11/18/21 17:25 Bismuth Subsalicylate (Bismuth Subsalicylate Liqd 236 Ml) 15 ml PO PRN PRN PRN Reason: Loose Stool Stop: 11/18/21 17:25 Hydroxyzine HCl (Hydroxyzine Hcl 25 Mg Tab) 50 mg PO HSZ PRN PRN Reason: Insomnia Stop: 11/18/21 17:25 Hydroxyzine HCl (Hydroxyzine Hcl 25 Mg Tab) 25 mg PO Q4H PRN PRN Reason: Anxiety Stop: 11/18/21 17:25 Lactobacillus Acidophilus (Lactobacillus Acidophilus 1 Gm Pack) 1 gm PO TIDM [facility]; Protocol Stop: 11/22/21 12:29 Last Admin: 10/24/21 08:26 Dose: 1 gm Documented by: Magnesium Hydroxide (Magnesium Hydroxide Susp 30 Ml Udc) 30 ml PO DAILY PRN PRN Reason: Constipation Stop: 11/18/21 17:25 Melatonin (Melatonin 3 Mg Tab) 3 mg PO [facility] Stop: 11/20/21 21:59 Last Admin: 10/23/21 20:57 Dose: 3 mg Documented by: Risperidone (Risperidone 0.5 Mg Tablet) [facility] Stop: 11/23/21 08:59 Last Admin: 10/24/21 08:26 Dose: 0.5 mg Documented by: Risperidone (Risperidone 1 Mg Tablet) 1 mg PO [facility] Stop: 11/22/21 21:59 Last Admin: 10/23/21 20:57 Dose: 1 mg Documented by: Sodium Chloride (Sodium Chloride 0.65% Na Soln 45 Ml ([place])) 1 - 2 sprays NA PRN PRN PRN Reason: Nasal Dryness/Congestion Stop: 11/18/21 17:25 Tamsulosin HCl (Tamsulosin Hcl 0.4 Mg Cap) 0.4 mg PO [facility] Stop: 11/22/21 21:59 Last Admin: 10/23/21 20:57 Dose: 0.4 mg Documented by: Temazepam (Temazepam 15 Mg Capsule) 15 mg PO [facility] Stop: 11/19/21 21:59 Last Admin: 10/23/21 20:57 Dose: 15 mg Documented by: Trimethoprim/Sulfamethoxazole (Sulfamethoxazole/Trimethoprim Ds 800/160mg Tab) 1 tab PO Q12 [facility]; Protocol Stop: 10/30/21 11:59 Last Admin: 10/24/21 08:26 Dose: 1 tab Documented by: Post Discharge Appointments Primary Care Physician Name Of Family Doctor: [facility] - Dr. Jeff Lopez Primary Care Provider Appointment Comment: [address] [facility], [address], [place], [place] Contact Information Discharge Discharge Address: [address] [place] [address], [address], [place] [address] (1) Schizophrenia Schizophrenia type: unspecified Qualified Code(s): F20.9 - Schizophrenia, unspecified
[2021-10-24] MEDS ORDERED: risperiDONE 0.5 MG TABLET PO SCH (09:00)
[2021-10-24] MEDS: risperiDONE 1 MG TABLET PO SCH (21:38)
[2021-10-24] MEDS: TEMAZEPAM 15 MG CAPSULE PO SCH (21:38)
[2021-10-24] MEDS: MELATONIN 3 MG TAB PO SCH (21:39)
[2021-10-24] MEDS: TAMSULOSIN HCL 0.4 MG CAP PO SCH (21:40)
[2021-10-25] MEDS: SULFAMETHOXAZOLE/TRIMETHOPRIM DS 800/160MG TAB PO SCH ×2 (08:39→20:47)
[2021-10-25] MEDS: risperiDONE 1 MG TABLET PO SCH ×2 (08:39→20:47)
[2021-10-25] MEDS: LACTOBACILLUS ACIDOPHILUS 1 GM PACK PO SCH ×3 (08:41→17:07)
--- NOTE | 2021-10-25 08:42 | Psychiatric Progress Note ---
Date of Service October 25, 2021 Impression / Recommendations Yanique Ayala is a 76-year-old male with a history of schizophrenia and multiple admissions for SI and auditory command hallucinations, particularly in the context of med non compliance. At baseline he has a delusion about noise in his head/buzzing for which he feels the only cure is Valium which he has misused in the past. The patient is deemed unstable and requires psychiatric hospitalization for safety and stabilization, medication management and development of further coping skills. MNPR for a history of poor boundaries, intolerance of peers, and age given COVID pandemic. 10/25/21: Tolerating risperidone but still with ongoing cAH. Will hold off on further titration given his age and chronicity of symptoms with known poor response to pharmacotherapy. Continue to focus on additional coping skills. Consider 304 assisted outpatient treatment given history of medication non- adherence and poor follow-up appointment adherence. (1) Schizophrenia: 10/25/21: Continue with risperidone and other medications. Remains consistent in his agreement to work with his lead case manager. 10/24/21: Increase risperidone to 1mg BID. Continue temazepam, bactrim, flomax. 10/23/21: Increase risperidone to 0.5 mg qAM & 1 mg qHS. Continue temazepam. Will start antibiotic for UTI. 10/22/21: Increase risperidone to 0.5 mg BID. Continue temazepam as he refuses consideration of any other medications for sleep. 10/21/21: Discontinue latuda due to restless legs. Start risperidone 0.25 qAM & 0.5 mg qHS. Temazepam for now, considering safer options given his age. 10/20/21: The patient was [facility] to the [facility] on q15 min checks (behavioral with suicide precautions) for safety. The patient will participate in group, recreational, and milieu therapies and will be offered additional individual and family sessions as clinically appropriate. Risks/benefits/alternatives reviewed re: Latuda for hallucinations, I don't have immediate evidence that he has tried it before and there would be no means to try Vraylar or Rexulti as non-formulary. It would hopefully help from a depression standpoint as well. He is well aware of risks/benefits/TD/metabolic issues with antipsychotics and did have fasting labs this am. Inventory Assets Strengths: has engaged with case management in past, housing Needs: resume outpatient med management, compliance Risk Factors Assessment Male: Yes : Yes Do You Have Access To A Gun?: No Mental Health Diagnoses: Yes Previous Attempt: Yes Previous Psychiatric Hospitalization: Yes Protective Factors Assessment Employed: No Stable Relationships: No Supportive Family: No Interval History Identifying Information SCOTT ROBERTO is a 76-year-old M who currently lives in [place], multiple inpatient admissions to (most recent June 2021), was admitted on 10/19/21 17:26 on a 201 voluntary commitment for command hallucinations. Chief Complaint "not good". Review of Systems Sleep Information Total Hours of Sleep: 7 Meal Information Percent Meal Consumed - Breakfast: 100 Percent Meal Consumed - Lunch: 100 Percent Meal Consumed - Dinner: 100 Subjective Subjective Patient was seen & assessed and interval progress reviewed with treatment team nursing and social work. Attended some groups, not participative, goes in and out of the room. Otherwise isolative to his room. Attending to ADLs and walking laps. States he is "not good" which he attributes to poor sleep stating "I need a tranquilizer" which he states is "valium". We discussed why valium is not a good medication option. He wants to continue with restoril and risperidone. No side effects. Continues to have chronic "buzzing" and "voices" in his left and sometimes right ear including periods of cAH telling him to "kill myself". Physical Exam Psychiatric Orientation: alert, oriented to person and oriented to place Apperance: appropriately dressed and appropriately groomed Eye Contact: + fair eye contact Motor Behavior: no abnormal motor movements Speech: normal rate/rhythm/volume of speech Affect: + flat affect Mood: + depressed mood Thought Process: + concrete thought process Thought Content: + delusions Suicidal Thoughts: denies suicidal plan and denies suicidal intent; + reports suicidal thoughts (intermittent command AH) Homicidal Thoughts: denies homicidal thoughts Hallucinations: + auditory hallucinations; no visual hallucinations Cognition: attention grossly intact and language grossly intact Estimated Intelligence: consistent with education level Insight: + poor insight Judgement: + poor judgement Vital Signs (Past 24 Hours) Last Vital Signs Temp 36.5 C 10/25/21 06:00 Pulse 90 10/25/21 06:27 Resp 16 10/25/21 06:00 BP 130/73 10/25/21 06:27 Pulse Ox 96 10/19/21 18:00 Results & Data ([facility]) Current Inpatient Medications Current Inpatient Medications: Current Inpatient Medications Acetaminophen (Acetaminophen 325 Mg Tab) 650 mg PO Q4H PRN PRN Reason: Headache or Minor Fever Stop: 11/18/21 17:25 Al Hydrox/Mg Hydrox/Simethicone (Aluminum/Magnesium Susp 30 Ml Udc) 30 ml PO Q4H PRN PRN Reason: GI Upset Stop: 11/18/21 17:25 Bismuth Subsalicylate (Bismuth Subsalicylate Liqd 236 Ml) 15 ml PO PRN PRN PRN Reason: Loose Stool Stop: 11/18/21 17:25 Hydroxyzine HCl (Hydroxyzine Hcl 25 Mg Tab) 50 mg PO HSZ PRN PRN Reason: Insomnia Stop: 11/18/21 17:25 Hydroxyzine HCl (Hydroxyzine Hcl 25 Mg Tab) 25 mg PO Q4H PRN PRN Reason: Anxiety Stop: 11/18/21 17:25 Lactobacillus Acidophilus (Lactobacillus Acidophilus 1 Gm Pack) 1 gm PO TIDM [facility]; Protocol Stop: 11/22/21 12:29 Last Admin: 10/24/21 17:09 Dose: 1 gm Documented by: Magnesium Hydroxide (Magnesium Hydroxide Susp 30 Ml Udc) 30 ml PO DAILY PRN PRN Reason: Constipation Stop: 11/18/21 17:25 Melatonin (Melatonin 3 Mg Tab) 3 mg PO [facility] Stop: 11/20/21 21:59 Last Admin: 10/24/21 21:39 Dose: 3 mg Documented by: Risperidone (Risperidone 1 Mg Tablet) 1 mg PO BID [facility] Stop: 11/23/21 20:59 Last Admin: 10/24/21 21:38 Dose: 1 mg Documented by: Sodium Chloride (Sodium Chloride 0.65% Na Soln 45 Ml ([place])) 1 - 2 sprays NA PRN PRN PRN Reason: Nasal Dryness/Congestion Stop: 11/18/21 17:25 Tamsulosin HCl (Tamsulosin Hcl 0.4 Mg Cap) 0.4 mg PO [facility] Stop: 11/22/21 21:59 Last Admin: 10/24/21 21:40 Dose: 0.4 mg Documented by: Temazepam (Temazepam 15 Mg Capsule) 15 mg PO HS [facility] Stop: 11/19/21 21:59 Last Admin: 10/24/21 21:38 Dose: 15 mg Documented by: Trimethoprim/Sulfamethoxazole (Sulfamethoxazole/Trimethoprim Ds 800/160mg Tab) 1 tab PO Q12 [facility]; Protocol Stop: 10/30/21 11:59 Last Admin: 10/24/21 21:38 Dose: 1 tab Documented by: Post Discharge Appointments Primary Care Physician Name Of Family Doctor: [facility] - Dr. Jeff Lopez Primary Care Date of Appointment with PCP: 10/30/21 Time of Appointment with PCP: 11:10 AM Provider Appointment Comment: [address] [facility], [address], [place], [place] Contact Information Discharge Discharge Address: [address] [place] [address], [facility] [address], [place] [address] (1) Schizophrenia Schizophrenia type: unspecified Qualified Code(s): F20.9 - Schizophrenia, unspecified
[2021-10-25] MEDS: TAMSULOSIN HCL 0.4 MG CAP PO SCH (20:47)
[2021-10-25] MEDS: MELATONIN 3 MG TAB PO SCH (20:48)
[2021-10-25] MEDS: TEMAZEPAM 15 MG CAPSULE PO SCH (20:49)
[2021-10-26] MEDS: risperiDONE 1 MG TABLET PO SCH (08:29)
[2021-10-26] MEDS: SULFAMETHOXAZOLE/TRIMETHOPRIM DS 800/160MG TAB PO SCH ×2 (08:29→20:35)
[2021-10-26] MEDS: LACTOBACILLUS ACIDOPHILUS 1 GM PACK PO SCH ×3 (08:30→17:37)
--- NOTE | 2021-10-26 08:50 | Psychiatric Progress Note ---
Date of Service October 26, 2021 Impression / Recommendations Impression Jamie is a 76-year-old male with a history of schizophrenia and multiple admissions for SI and auditory command hallucinations, particularly in the context of med non compliance. At baseline he has a delusion about noise in his head/buzzing for which he feels the only cure is Valium which he has misused in the past. The patient is deemed unstable and requires psychiatric hospitalization for safety and stabilization, medication management and development of further coping skills. MNPR for a history of poor boundaries, intolerance of peers, and age given COVID pandemic. 10/26/21: Has experienced limited effects from risperidone. Reviewed option to resume care with Dr. Pizarro if he wanted to be back on a FARAH antipsychotic and agreed to a 304 outpatient commitment with alternative option of seeing Dr. Lopez who said he would be comfortable prescribing Jamie's medications. Jamie stated he would like to resume workingw ith Dr. Pizarro and agrees to 304 outpatient. Also stated he would like to stop the risperidone and go back on abilify maintenana FARAH which he had been on intermittently since 2019. Reviewed side effects including but not limited to metabolic and movement side effects. He understands and wants to go back on abilify. Could give him abilify Aristada in the hospital as it is on formulary but will need to see if this is covered by his insurance, otherwise he could resume Maintena after discharge. 304 outpatient commitment paperwork completed and filed. (1) Schizophrenia: 10/26/21: Completed paperwork for request for 201 to 304 outpatient commit ment. Discontinue risperidone. Start abilify 5 mg po qd. 10/25/21: Continue with risperidone and other medications. Remains consistent in his agreement to work with his patient case manager. 10/24/21: Increase risperidone to 1mg BID. Continue temazepam, bactrim, flomax. 10/23/21: Increase risperidone to 0.5 mg qAM & 1 mg qHS. Continue temazepam. Will start antibiotic for UTI. 10/22/21: Increase risperidone to 0.5 mg BID. Continue temazepam as he refuses consideration of any other medications for sleep. 10/21/21: Discontinue latuda due to restless legs. Start risperidone 0.25 qAM & 0.5 mg qHS. Temazepam for now, considering safer options given his age. 10/20/21: The patient was [facility] ([facility] inpatient mental health unit) on q15 min checks (behavioral with suicide precautions) for safety. The patient will participate in group, recreational, and milieu therapies and will be offered additional individual and family sessions as clinically appropriate. Risks/benefits/alternatives reviewed re: Latuda for hallucinations, I don't have immediate evidence that he has tried it before and there would be no means to try Vraylar or Rexulti as non-formulary. It would hopefully help from a depression standpoint as well. He is well aware of risks/benefits/TD/metabolic issues with antipsychotics and did have fasting labs this am. Inventory Assets Strengths: has engaged with case management in past, housing Needs: resume outpatient med management, compliance Risk Factors Assessment Male: Yes : Yes Do You Have Access To A Gun?: No Mental Health Diagnoses: Yes Previous Attempt: Yes Previous Psychiatric Hospitalization: Yes Protective Factors Assessment Employed: No Stable Relationships: No Supportive Family: No Interval History Identifying Information SCOTT ROBERTO is a 76-year-old M who currently lives in [place], multiple inpatient admissions to (most recent June 2021), was admitted on 10/19/21 17:26 on a 201 voluntary commitment for command hallucinations. Chief Complaint "I'm not good". Review of Systems Sleep Information Total Hours of Sleep: 8 Meal Information Percent Meal Consumed - Breakfast: 100 Percent Meal Consumed - Lunch: 100 Percent Meal Consumed - Dinner: 100 Subjective Subjective Patient was seen & assessed and interval progress reviewed with treatment team nursing and social work. Isolative but going to groups. Attending to ADLs. Continues to have auditory hallucinations with command voices telling him to "kill himself". He continues to feel he would be unable to stay safe at home due to these voices. Reviewed that his outpatient psychiatrist Dr. Pizarro would be wi lling to work with him again if [place] is willing to be on FARAH again and to be on an outpatient 304 commitment. He agrees to this stating "sure I'll do that". He recalled his prior abilify Maintena dose of 300mg IM. Reports he did not have any side effects from this. His patient case manager also recalled that Jamie did well on abilify FARAH. Physical Exam Psychiatric Orientation: alert, oriented to person and oriented to place Apperance: appropriately dressed and appropriately groomed Eye Contact: + fair eye contact Motor Behavior: no abnormal motor movements Speech: normal rate/rhythm/volume of speech Affect: + flat affect Mood: + depressed mood Thought Process: + concrete thought process Thought Content: + delusions Suicidal Thoughts: denies suicidal plan and denies suicidal intent; + reports suicidal thoughts (intermittent command AH) Homicidal Thoughts: denies homicidal thoughts Hallucinations: + auditory hallucinations; no visual hallucinations Cognition: attention grossly intact and language grossly intact Estimated Intelligence: consistent with education level Insight: + poor insight Judgement: + fair judgement Vital Signs (Past 24 Hours) Last Vital Signs Temp 37.0 C 10/26/21 06:00 Pulse 91 H 10/26/21 06:22 Resp 16 10/26/21 06:00 BP 116/87 10/26/21 06:22 Pulse Ox 96 10/19/21 18:00 Results & Data ([facility]) Laboratory Results Laboratory Results - last 24 hr 10/26/21 08:08 Sodium Pending Potassium Pending Chloride Pending Carbon Dioxide Pending Anion Gap Pending BUN Pending Creatinine Pending Est Cr Clr Drug Dosing Pending Est GFR ( Amer) Pending Est GFR (Non-Af Amer) Pending BUN/Creatinine Ratio Pending Glucose Pending Calcium Pending Current Inpatient Medications Current Inpatient Medications: Current Inpatient Medications Acetaminophen (Acetaminophen 325 Mg Tab) 650 mg PO Q4H PRN PRN Reason: Headache or Minor Fever Stop: 11/18/21 17:25 Al Hydrox/Mg Hydrox/Simethicone (Aluminum/Magnesium Susp 30 Ml Udc) 30 ml PO Q4H PRN PRN Reason: GI Upset Stop: 11/18/21 17:25 Bismuth Subsalicylate (Bismuth Subsalicylate Liqd 236 Ml) 15 ml PO PRN PRN PRN Reason: Loose Stool Stop: 11/18/21 17:25 Hydroxyzine HCl (Hydroxyzine Hcl 25 Mg Tab) 50 mg PO HSZ PRN PRN Reason: Insomnia Stop: 11/18/21 17:25 Hydroxyzine HCl (Hydroxyzine Hcl 25 Mg Tab) 25 mg PO Q4H PRN PRN Reason: Anxiety Stop: 11/18/21 17:25 Lactobacillus Acidophilus (Lactobacillus Acidophilus 1 Gm Pack) 1 gm PO TIDM [facility]; Protocol Stop: 11/22/21 12:29 Last Admin: 10/26/21 08:30 Dose: 1 gm Documented by: Magnesium Hydroxide (Magnesium Hydroxide Susp 30 Ml Udc) 30 ml PO DAILY PRN PRN Reason: Constipation Stop: 11/18/21 17:25 Melatonin (Melatonin 3 Mg Tab) 3 mg PO HS [facility] Stop: 11/20/21 21:59 Last Admin: 10/25/21 20:48 Dose: 3 mg Documented by: Risperidone (Risperidone 1 Mg Tablet) 1 mg PO BID [facility] Stop: 11/23/21 20:59 Last Admin: 10/26/21 08:29 Dose: 1 mg Documented by: Sodium Chloride (Sodium Chloride 0.65% Na Soln 45 Ml ([place])) 1 - 2 sprays NA PRN PRN PRN Reason: Nasal Dryness/Congestion Stop: 11/18/21 17:25 Tamsulosin HCl (Tamsulosin Hcl 0.4 Mg Cap) 0.4 mg PO HS [facility] Stop: 11/22/21 21:59 Last Admin: 10/25/21 20:47 Dose: 0.4 mg Documented by: Temazepam (Temazepam 15 Mg Capsule) 15 mg PO HS [facility] Stop: 11/19/21 21:59 Last Admin: 10/25/21 20:49 Dose: 15 mg Documented by: Trimethoprim/Sulfamethoxazole (Sulfamethoxazole/Trimethoprim Ds 800/160mg Tab) 1 tab PO Q12 [facility]; Protocol Stop: 10/30/21 11:59 Last Admin: 10/26/21 08:29 Dose: 1 tab Documented by: Post Discharge Appointments Primary Care Physician Name Of Family Doctor: [facility] - Dr. Jeff Lopez Primary Care Date of Appointment with PCP: 10/30/21 Time of Appointment with PCP: 11:10 AM Provider Appointment Comment: [address], [address], [place], [place] Contact Information Discharge Discharge Address: [address] [place] [address], [address], [place] [address] (1) Schizophrenia Schizophrenia type: unspecified Qualified Code(s): F20.9 - Schizophrenia, unspecified
[2021-10-26 08:53] LABS: BUN Creatinine Ratio 11.2 (10-20); Calcium 8.8 mg/dl (8.5-10.1); Creatinine Clr Calc Pharmacy 60.9 ml/min; Est GFR (African American) 87.1 ml/min; Est GFR (Non-African American) 75.1 ml/min; Potassium 3.8 mmol/L (3.5-5.1)
[2021-10-26] MEDS: TAMSULOSIN HCL 0.4 MG CAP PO SCH (20:34)
[2021-10-26] MEDS: TEMAZEPAM 15 MG CAPSULE PO SCH (20:34)
[2021-10-26] MEDS: MELATONIN 3 MG TAB PO SCH (20:35)
[2021-10-27] MEDS: LACTOBACILLUS ACIDOPHILUS 1 GM PACK PO SCH ×3 (08:17→17:16)
[2021-10-27] MEDS: SULFAMETHOXAZOLE/TRIMETHOPRIM DS 800/160MG TAB PO SCH ×2 (08:18→21:11)
[2021-10-27] MEDS: ARIPiprazole 5 MG TAB PO SCH (08:18)
--- NOTE | 2021-10-27 08:52 | Psychiatric Progress Note ---
Date of Service October 27, 2021 Impression / Recommendations Yanique Ayala is a 76-year-old male with a history of schizophrenia and multiple admissions for SI and auditory command hallucinations, particularly in the context of med non compliance. At baseline he has a delusion about noise in his head/buzzing for which he feels the only cure is Valium which he has misused in the past. The patient is deemed unstable and requires psychiatric hospitalization for safety and stabilization, medication management and development of further coping skills. MNPR for a history of poor boundaries, intolerance of peers, and age given COVID pandemic. 10/27/21: Tolerating initiation of abilify with plan for transition back to abilify [facility] after discharge, cannot start in the hospital as not on formulary here. Suspect some of his increased focus on the auditory hallucinations may be in an effort to restart Valium, as he has been requesting this more, though he remains agreeable to discussions of why I feel this carries too many risks given his age and that he is already on Restoril which he doesn't want to stop. (1) Schizophrenia: 10/27/21: Continue abilify. 304 outpatient hearing scheduled. 10/26/21: Completed paperwork for request for 201 to 304 outpatient commitment. Discontinue risperidone. Start abilify 5 mg po qd. 10/25/21: Continue with risperidone and other medications. Remains consistent in his agreement to work with his community case manager. 10/24/21: Increase risperidone to 1mg BID. Continue temazepam, bactrim, flomax. 10/23/21: Increase risperidone to 0.5 mg qAM & 1 mg qHS. Continue temazepam. Will start antibiotic for UTI. 10/22/21: Increase risperidone to 0.5 mg BID. Continue temazepam as he refuses consideration of any other medications for sleep. 10/21/21: Discontinue latuda due to restless legs. Start risperidone 0.25 qAM & 0.5 mg qHS. Temazepam for now, considering safer options given his age. 10/20/21: The patient was admitted to the [facility] ([facility] unit) on q15 min checks (behavioral with suicide precautions) for safety. The patient will participate in group, recreational, and milieu therapies and will be offered additional individual and family sessions as clinically appropriate. Risks/benefits/alternatives reviewed re: Latuda for hallucinations, I don't have immediate evidence that he has tried it before and there would be no means to try Vraylar or Rexulti as non-formulary. It would hopefully help from a depression standpoint as well. He is well aware of risks/benefits/TD/metabolic issues with antipsychotics and did have fasting labs this am. Inventory Assets Strengths: has engaged with case management in past, housing Needs: resume outpatient med management, compliance Risk Factors Assessment Male: Yes : Yes Do You Have Access To A Gun?: No Mental Health Diagnoses: Yes Previous Attempt: Yes Previous Psychiatric Hospitalization: Yes Protective Factors Assessment Employed: No Stable Relationships: No Supportive Family: No Interval History Identifying Information SCOTT ROBERTO is a 76-year-old M who currently lives in [place], multiple inpatient admissions to (most recent June 2021), was admitted on 10/19/21 17:26 on a 201 voluntary commitment for command hallucinations. Chief Complaint "I feel suicidal". Review of Systems Sleep Information Total Hours of Sleep: 8.5 Meal Information Percent Meal Consumed - Breakfast: 100 Percent Meal Consumed - Lunch: 100 Percent Meal Consumed - Dinner: 100 Subjective Subjective Patient was seen & assessed and interval progress reviewed with treatment team nursing and social work. Reports he slept ok last night but feels very suicidal today due to intensity of the auditory hallucinations. Discussed strategies to help with this including listening to music which he agrees to try. States he thinks a "tranquilizer like valium" would help, we discuss that I feel this would not be appropriate to which he states "ok". He feels safe in the hospital. Tolerating abilify without any side effects so far. Physical Exam Psychiatric Orientation: alert, oriented to person and oriented to place Apperance: appropriately dressed and appropriately groomed Eye Contact: + fair eye contact Motor Behavior: no abnormal motor movements Speech: normal rate/rhythm/volume of speech Affect: + flat affect Mood: + depressed mood Thought Process: + concrete thought process Thought Content: reality based without delusions Suicidal Thoughts: denies suicidal plan and denies suicidal intent; + reports suicidal thoughts (intermittent command AH) Homicidal Thoughts: denies homicidal thoughts Hallucinations: + auditory hallucinations; no visual hallucinations Cognition: attention grossly intact and language grossly intact Estimated Intelligence: consistent with education level Insight: + poor insight Judgement: + poor judgement Vital Signs (Past 24 Hours) Last Vital Signs Temp 37 C 10/27/21 06:38 Pulse 85 10/27/21 06:39 Resp 16 10/27/21 06:38 BP 131/73 10/27/21 06:39 Pulse Ox 96 10/19/21 18:00 Results & Data ([facility]) Laboratory Results Laboratory Results - last 24 hr 10/26/21 08:08 Sodium 136 Potassium 3.8 Chloride 104 Carbon Dioxide 23 Anion Gap 9 BUN 11 Creatinine 0.98 Est Cr Clr Drug Dosing 60.9 Est GFR ( Amer) 87.1 Est GFR (Non-Af Amer) 75.1 BUN/Creatinine Ratio 11.2 Glucose 123 H Calcium 8.8 Current Inpatient Medications Current Inpatient Medications: Current Inpatient Medications Acetaminophen (Acetaminophen 325 Mg Tab) 650 mg PO Q4H PRN PRN Reason: Headache or Minor Fever Stop: 11/18/21 17:25 Al Hydrox/Mg Hydrox/Simethicone (Aluminum/Magnesium Susp 30 Ml Udc) 30 ml PO Q4H PRN PRN Reason: GI Upset Stop: 11/18/21 17:25 Aripiprazole (Aripiprazole 5 Mg Tab) 5 mg PO QAM MAG Stop: 11/26/21 08:59 Last Admin: 10/27/21 08:18 Dose: 5 mg Documented by: Bismuth Subsalicylate (Bismuth Subsalicylate Liqd 236 Ml) 15 ml PO PRN PRN PRN Reason: Loose Stool Stop: 11/18/21 17:25 Hydroxyzine HCl (Hydroxyzine Hcl 25 Mg Tab) 50 mg PO HSZ PRN PRN Reason: Insomnia Stop: 11/18/21 17:25 Hydroxyzine HCl (Hydroxyzine Hcl 25 Mg Tab) 25 mg PO Q4H PRN PRN Reason: Anxiety Stop: 11/18/21 17:25 Lactobacillus Acidophilus (Lactobacillus Acidophilus 1 Gm Pack) 1 gm PO TIDM MAG; Protocol Stop: 11/22/21 12:29 Last Admin: 10/27/21 08:17 Dose: 1 gm Documented by: Magnesium Hydroxide (Magnesium Hydroxide Susp 30 Ml Udc) 30 ml PO DAILY PRN PRN Reason: Constipation Stop: 11/18/21 17:25 Melatonin (Melatonin 3 Mg Tab) 3 mg PO HS MAG Stop: 11/20/21 21:59 Last Admin: 10/26/21 20:35 Dose: 3 mg Documented by: Sodium Chloride (Sodium Chloride 0.65% Na Soln 45 Ml ([place])) 1 - 2 sprays NA PRN PRN PRN Reason: Nasal Dryness/Congestion Stop: 11/18/21 17:25 Tamsulosin HCl (Tamsulosin Hcl 0.4 Mg Cap) 0.4 mg PO HS MAG Stop: 11/22/21 21:59 Last Admin: 10/26/21 20:34 Dose: 0.4 mg Documented by: Temazepam (Temazepam 15 Mg Capsule) 15 mg PO HS MAG Stop: 11/19/21 21:59 Last Admin: 10/26/21 20:34 Dose: 15 mg Documented by: Trimethoprim/Sulfamethoxazole (Sulfamethoxazole/Trimethoprim Ds 800/160mg Tab) 1 tab PO Q12 MAG; Protocol Stop: 10/30/21 11:59 Last Admin: 10/27/21 08:18 Dose: 1 tab Documented by: Mental Health & Subst Abuse Tx Psychiatrist Name of Psychiatrist: Dr Pizarro Date of Appointment with Psychiatrist: 11/13/21 Time of Appointment with Psychiatrist: 11:00 Psychiatric Appointment Comment: [facility] office Post Discharge Appointments Primary Care Physician Name Of Family Doctor: [facility] - Dr. Jeff Lopez Primary Care Date of Appointment with PCP: 10/30/21 Time of Appointment with PCP: 11:10 AM Provider Appointment Comment: [facility], [address], [place], [place] Contact Information Discharge Discharge Address: [address] [place] [address], [place] [address], [place] [address] (1) Schizophrenia Schizophrenia type: unspecified Qualified Code(s): F20.9 - Schizophrenia, unspecified
[2021-10-27] MEDS: MELATONIN 3 MG TAB PO SCH (21:11)
[2021-10-27] MEDS: TEMAZEPAM 15 MG CAPSULE PO SCH (21:11)
[2021-10-27] MEDS: TAMSULOSIN HCL 0.4 MG CAP PO SCH (21:11)
[2021-10-28] MEDS: SULFAMETHOXAZOLE/TRIMETHOPRIM DS 800/160MG TAB PO SCH ×2 (08:46→20:18)
[2021-10-28] MEDS: LACTOBACILLUS ACIDOPHILUS 1 GM PACK PO SCH ×3 (08:46→17:41)
[2021-10-28] MEDS: ARIPiprazole 5 MG TAB PO SCH (08:46)
--- NOTE | 2021-10-28 15:10 | Psychiatric Progress Note ---
Date of Service October 28, 2021 Impression / Recommendations Yanique Ayala is a 76-year-old male with a history of schizophrenia and multiple admissions for SI and auditory command hallucinations, particularly in the context of med non compliance. At baseline he has a delusion about noise in his head/buzzing for which he feels the only cure is Valium which he has misused in the past. The patient is deemed unstable and requires psychiatric hospitalization for safety and stabilization, medication management and development of further coping skills. MNPR for a history of poor boundaries, intolerance of peers, and age given COVID pandemic. 10/28/21: ?breathrough symptoms on cross taper from Risperdal to Abilify vs. Valium seeking (1) Schizophrenia: 10/28/21: increase Abilify to 10 mg po qam. 10/27/21: Continue abilify. 304 outpatient hearing scheduled. 10/26/21: Completed paperwork for request for 201 to 304 outpatient commitment. Discontinue risperidone. Start abilify 5 mg po qd. 10/25/21: Continue with risperidone and other medications. Remains consistent in his agreement to work with his case fitter. 10/24/21: Increase risperidone to 1mg BID. Continue temazepam, bactrim, flomax. 10/23/21: Increase risperidone to 0.5 mg qAM & 1 mg qHS. Continue temazepam. Will start antibiotic for UTI. 10/22/21: Increase risperidone to 0.5 mg BID. Continue temazepam as he refuses consideration of any other medications for sleep. 10/21/21: Discontinue latuda due to restless legs. Start risperidone 0.25 qAM & 0.5 mg qHS. Temazepam for now, considering safer options given his age. 10/20/21: The patient was admitted to the [facility] ([facility] mental health unit) on q15 min checks (behavioral with suicide precautions) for safety. The patient will participate in group, recreational, and milieu therapies and will be offered additional individual and family sessions as clinically appropriate. Risks/benefits/alternatives reviewed re: Latuda for hallucinations, I don't have immediate evidence that he has tried it before and there would be no means to try Vraylar or Rexulti as non-formulary. It would hopefully help from a depression standpoint as well. He is well aware of risks/benefits/TD/metabolic issues with antipsychotics and did have fasting labs this am. Inventory Assets Strengths: has engaged with case management in past, housing Needs: resume outpatient med management, compliance Risk Factors Assessment Male: Yes : Yes Do You Have Access To A Gun?: No Mental Health Diagnoses: Yes Previous Attempt: Yes Previous Psychiatric Hospitalization: Yes Protective Factors Assessment Employed: No Stable Relationships: No Supportive Family: No Interval History Identifying Information SCOTT ROBERTO is a 76-year-old M who currently lives in [place], multiple inpatient admissions to (most recent June 2021), was admitted on 10/19/21 17:26 on a 201 voluntary commitment for command hallucinations. Chief Complaint "I'm feeling suicidal today". Review of Systems Sleep Information Total Hours of Sleep: 6.5 Meal Information Percent Meal Consumed - Breakfast: 100 Percent Meal Consumed - Lunch: 100 Percent Meal Consumed - Dinner: 100 Subjective Subjective Patient was seen & assessed and interval progress reviewed with nursing and so cial work. Patient has been attending select groups and appears calm in interactions on unit. He reports sleeping well but an increase in his auditory hallucinations that tell him to self harm. He does not appear to be responding to internal stimuli and he doesn't elaborate on if there is any true worsening of his underlying thoughts about self harm. The statements were made in the context of discussing discharge planning. Physical Exam Psychiatric Orientation: alert, oriented to person and oriented to place Apperance: appropriately dressed and appropriately groomed Eye Contact: + fair eye contact Motor Behavior: no abnormal motor movements Speech: normal rate/rhythm/volume of speech Affect: + flat affect Mood: + depressed mood Thought Process: + concrete thought process Thought Content: + delusions (people that mess with needles) Suicidal Thoughts: denies suicidal plan and denies suicidal intent; + reports suicidal thoughts (intermittent command AH) Homicidal Thoughts: denies homicidal thoughts Hallucinations: + auditory hallucinations (by report); no visual hallucinations Cognition: attention grossly intact and language grossly intact Estimated Intelligence: consistent with education level Insight: + poor insight Judgement: + poor judgement Vital Signs (Past 24 Hours) Last Vital Signs Temp 37 C 10/28/21 06:50 Pulse 88 10/28/21 06:51 Resp 16 10/28/21 06:50 BP 127/72 10/28/21 06:51 Pulse Ox 96 10/19/21 18:00 Results & Data ([facility]) Current Inpatient Medications Current Inpatient Medications: Current Inpatient Medications Acetaminophen (Acetaminophen 325 Mg Tab) 650 mg PO Q4H PRN PRN Reason: Headache or Minor Fever Stop: 11/18/21 17:25 Al Hydrox/Mg Hydrox/Simethicone (Aluminum/Magnesium Susp 30 Ml Udc) 30 ml PO Q4H PRN PRN Reason: GI Upset Stop: 11/18/21 17:25 Aripiprazole (Aripiprazole 5 Mg Tab) 5 mg PO QAM [facility] Stop: 11/26/21 08:59 Last Admin: 10/28/21 08:46 Dose: 5 mg Documented by: Aripiprazole (A[facility] 10 Mg Tab) [facility] Stop: 11/28/21 08:59 Bismuth Subsalicylate (Bismuth Subsalicylate Liqd 236 Ml) 15 ml PO PRN PRN PRN Reason: Loose Stool Stop: 11/18/21 17:25 Hydroxyzine HCl (Hydroxyzine Hcl 25 Mg Tab) 50 mg PO HSZ PRN PRN Reason: Insomnia Stop: 11/18/21 17:25 Hydroxyzine HCl (Hydroxyzine Hcl 25 Mg Tab) 25 mg PO Q4H PRN PRN Reason: Anxiety Stop: 11/18/21 17:25 Lactobacillus Acidophilus (Lactobacillus Acidophilus 1 Gm Pack) 1 gm PO TIDM MAG; Protocol Stop: 11/22/21 12:29 Last Admin: 10/28/21 12:57 Dose: 1 gm Documented by: Magnesium Hydroxide (Magnesium Hydroxide Susp 30 Ml Udc) 30 ml PO DAILY PRN PRN Reason: Constipation Stop: 11/18/21 17:25 Melatonin (Melatonin 3 Mg Tab) 3 mg PO [facility] Stop: 11/20/21 21:59 Last Admin: 10/27/21 21:11 Dose: 3 mg Documented by: Sodium Chloride (Sodium Chloride 0.65% Na Soln 45 Ml ([place])) 1 - 2 sprays NA PRN PRN PRN Reason: Nasal Dryness/Congestion Stop: 11/18/21 17:25 Tamsulosin HCl (Tamsulosin Hcl 0.4 Mg Cap) 0.4 mg PO [facility] Stop: 11/22/21 21:59 Last Admin: 10/27/21 21:11 Dose: 0.4 mg Documented by: Temazepam (Temazepam 15 Mg Capsule) 15 mg PO HS MAG Stop: 11/19/21 21:59 Last Admin: 10/27/21 21:11 Dose: 15 mg Documented by: Trimethoprim/Sulfamethoxazole (Sulfamethoxazole/Trimethoprim Ds 800/160mg Tab) 1 tab PO Q12 MAG; Protocol Stop: 10/30/21 11:59 Last Admin: 10/28/21 08:46 Dose: 1 tab Documented by: Mental Health & Subst Abuse Tx Psychiatrist Name of Psychiatrist: Aleksandra Pizarro Psychiatrist's Date of Appointment with Psychiatrist: 11/13/21 Time of Appointment with Psychiatrist: 11:00 a.m. Psychiatric Appointment Comment: [id number] [facility] SHA [place]s Front Desk Specialist Name of Front Desk Specialist: Shruti Mcbride Phone Number for Front Desk Specialist: [phone] Case Management Appointment Comment: [id number] [facility] Post Discharge Appointments Primary Care Physician Name Of Family Doctor: [facility] - Dr. Jeff Lopez Primary Care Date of Appointment with PCP: 10/30/21 Time of Appointment with PCP: 11:10 AM Provider Appointment Comment: [address] [facility], [address], [place], [place] Contact Information Discharge Discharge Address: [address] [place] [address], [place] [address], [place] [address] (1) Schizophrenia Schizophrenia type: unspecified Qualified Code(s): F20.9 - Schizophrenia, unspecified
[2021-10-28] MEDS: TEMAZEPAM 15 MG CAPSULE PO SCH (20:17)
[2021-10-28] MEDS: MELATONIN 3 MG TAB PO SCH (20:18)
[2021-10-28] MEDS: TAMSULOSIN HCL 0.4 MG CAP PO SCH (20:18)
[2021-10-29] MEDS: ARIPiprazole 10 MG TAB PO SCH (07:57)
[2021-10-29] MEDS: SULFAMETHOXAZOLE/TRIMETHOPRIM DS 800/160MG TAB PO SCH ×2 (07:57→21:00)
[2021-10-29] MEDS: LACTOBACILLUS ACIDOPHILUS 1 GM PACK PO SCH ×3 (07:57→17:02)
[2021-10-29] MEDS: ALUMINUM/MAGNESIUM SUSP 30 ML UDC PO PRN ×2 (10:38→16:07)
[2021-10-29] MEDS ORDERED: ONDANSETRON 4 MG OD TAB PO STA (13:31)
--- NOTE | 2021-10-29 14:05 | Psychiatric Progress Note ---
Date of Service October 29, 2021 Impression / Recommendations Yanique Ayala is a 76-year-old male with a history of schizophrenia and multiple admissions for SI and auditory command hallucinations, particularly in the context of med non compliance. At baseline he has a delusion about noise in his head/buzzing for which he feels the only cure is Valium which he has misused in the past. The patient is deemed unstable and requires psychiatric hospitalization for safety and stabilization, medication management and development of further coping skills. MNPR for a history of poor boundaries, intolerance of peers, and age given COVID pandemic. 10/29/21: slight improvement from yesterday, ?N from Abilify (started upon awakening before he got am dose). Plan: continue current meds and tx plan, monitor N, he is adamant that he does not want to restart Risperdal. (1) Schizophrenia: Inventory Assets Strengths: has engaged with case management in past, housing Needs: resume outpatient med management, compliance Risk Factors Assessment Male: Yes : Yes Do You Have Access To A Gun?: No Mental Health Diagnoses: Yes Previous Attempt: Yes Previous Psychiatric Hospitalization: Yes Protective Factors Assessment Employed: No Stable Relationships: No Supportive Family: No Interval History Identifying Information SCOTT ROBERTO is a 76-year-old M who currently lives in [place], multiple inpatient admissions to (most recent June 2021), was admitted on 10/19/21 17:26 on a 201 voluntary commitment for command hallucinations. Chief Complaint "The fan in my bathroom at my apartment building makes me hear things so I just keep it turned off". Review of Systems Sleep Information Total Hours of Sleep: 8.25 Meal Information Percent Meal Consumed - Breakfast: 100 Percent Meal Consumed - Lunch: 80 Percent Meal Consumed - Dinner: 100 Nutrition Comment: Pt with nausea and GI upset this morning and afternoon. Subjective Subjective Patient was seen & assessed and interval progress reviewed with nursing and social work. Appears somewhat calmer than yesterday. He reports high anxiety and ongoing angeles. any suicidal statements are more passive like "I just wish this would end." Reviewed rationale for 304 hearing tomorrow. He was able to problem solve around things he can do at home to manage voices that he can't do hear (distract self on computer, walk more). c/o N that did not resolve with Maalox, ate 80% lunch regardless. Zofran ordered. Physical Exam Psychiatric Orientation: alert, oriented to person and oriented to place Apperance: appropriately dressed and appropriately groomed Eye Contact: + fair eye contact Motor Behavior: no abnormal motor movements Speech: normal rate/rhythm/volume of speech Affect: + flat affect Mood: + depressed mood Thought Process: + concrete thought process Thought Content: + delusions (that voices come through fan in his bathroom at home) Suicidal Thoughts: denies suicidal plan and denies suicidal intent; + reports suicidal thoughts (intermittent, passive) Homicidal Thoughts: denies homicidal thoughts Hallucinations: + auditory hallucinations (by report); no visual hallucinations Cognition: attention grossly intact and language grossly intact Vital Signs (Past 24 Hours) Last Vital Signs Temp 36.9 C 10/29/21 06:44 Pulse 88 10/29/21 06:44 Resp 16 10/29/21 06:44 BP 109/66 10/29/21 06:44 Pulse Ox 96 10/19/21 18:00 Results & Data ([facility]) Current Inpatient Medications Current Inpatient Medications: Current Inpatient Medications Acetaminophen (Acetaminophen 325 Mg Tab) 650 mg PO Q4H PRN PRN Reason: Headache or Minor Fever Stop: 11/18/21 17:25 Al Hydrox/Mg Hydrox/Simethicone (Aluminum/Magnesium Susp 30 Ml Udc) 30 ml PO Q4H PRN PRN Reason: GI Upset Stop: 11/18/21 17:25 Last Admin: 10/29/21 10:38 Dose: 30 ml Documented by: Aripiprazole (Aripiprazole 10 Mg Tab) 10 mg PO QAM MAG Stop: 11/28/21 08:59 Last Admin: 10/29/21 07:57 Dose: 10 mg Documented by: Bismuth Subsalicylate (Bismuth Subsalicylate Liqd 236 Ml) 15 ml PO PRN PRN PRN Reason: Loose Stool Stop: 11/18/21 17:25 Hydroxyzine HCl (Hydroxyzine Hcl 25 Mg Tab) 50 mg PO HSZ PRN PRN Reason: Insomnia Stop: 11/18/21 17:25 Hydroxyzine HCl (Hydroxyzine Hcl 25 Mg Tab) 25 mg PO Q4H PRN PRN Reason: Anxiety Stop: 11/18/21 17:25 Lactobacillus Acidophilus (Lactobacillus Acidophilus 1 Gm Pack) 1 gm PO TIDM MAG; Protocol Stop: 11/22/21 12:29 Last Admin: 10/29/21 12:29 Dose: 1 gm Documented by: Magnesium Hydroxide (Magnesium Hydroxide Susp 30 Ml Udc) 30 ml PO DAILY PRN PRN Reason: Constipation Stop: 11/18/21 17:25 Melatonin (Melatonin 3 Mg Tab) 3 mg PO MAG Stop: 11/20/21 21:59 Last Admin: 10/28/21 20:18 Dose: 3 mg Documented by: Sodium Chloride (Sodium Chloride 0.65% Na Soln 45 Ml ([place])) 1 - 2 sprays NA PRN PRN PRN Reason: Nasal Dryness/Congestion Stop: 11/18/21 17:25 Tamsulosin HCl (Tamsulosin Hcl 0.4 Mg Cap) 0.4 mg PO [facility] Stop: 11/22/21 21:59 Last Admin: 10/28/21 20:18 Dose: 0.4 mg Documented by: Temazepam (Temazepam 15 Mg Capsule) 15 mg PO [facility] Stop: 11/19/21 21:59 Last Admin: 10/28/21 20:17 Dose: 15 mg Documented by: Trimethoprim/Sulfamethoxazole (Sulfamethoxazole/Trimethoprim Ds 800/160mg Tab) 1 tab PO Q12 MAG; Protocol Stop: 10/30/21 11:59 Last Admin: 10/29/21 07:57 Dose: 1 tab Documented by: Mental Health & Subst Abuse Tx Psychiatrist Name of Psychiatrist: Aleksandra Pizarro Psychiatrist's Date of Appointment with Psychiatrist: 11/13/21 Time of Appointment with Psychiatrist: 11:00 a.m. Psychiatric Appointment Comment: [id number] [facility] SHA [place] Fish Hatchery Worker Name of Fish Hatchery Worker: Shruti Mcbride Phone Number for Fish Hatchery Worker: [phone] Case Management Appointment Comment: [id number] [facility] Post Discharge Appointments Primary Care Physician Name Of Family Doctor: [facility] - Dr. Jeff Lopez Primary Care Date of Appointment with PCP: 10/30/21 Time of Appointment with PCP: 11:10 AM Provider Appointment Comment: [address] [facility], [address], [place] Contact Information Discharge Discharge Address: [address] [place] [address], [address], [place] [address] (1) Schizophrenia Schizophrenia type: unspecified Qualified Code(s): F20.9 - Schizophrenia, unspecified
[2021-10-29] MEDS: ONDANSETRON 4 MG OD TAB PO PRN (17:41)
[2021-10-29] MEDS: MELATONIN 3 MG TAB PO SCH (21:00)
[2021-10-29] MEDS: TAMSULOSIN HCL 0.4 MG CAP PO SCH (21:00)
[2021-10-29] MEDS: TEMAZEPAM 15 MG CAPSULE PO SCH (21:00)
[2021-10-30] MEDS: ONDANSETRON 4 MG OD TAB PO PRN (06:41)
[2021-10-30] MEDS: ARIPiprazole 10 MG TAB PO SCH (08:28)
--- NOTE | 2021-10-30 09:43 | Discharge Summary ---
Date of Service October 30, 2021 History of Present Illness On presentation the ED Trey reported that he has been hearing things for 2 weeks. His last rx per PDMP was Valium in Jul and seems as though he missed at least 1 dose of Abilify maintenna. The voices tell him to kill himself and he has acted on them before with a drug OD. He is seeking treatment to decrease the angeles as he does not want to harm himself. Today he is in his room and as typical doesn't engage well with female physicians. He is not perseverating on Valium. He did not appear to recognize me despite the fact I have cared for him on multiple occasions. He is isolative and superficial in interactions. He is clear he does not want to resume Abilify as "what's the point, I told you that stuff doesn't do anything." He stated he hasn't slept for 10-15 days. He thanked me as a way to end the interview. Physical Exam Psychiatric See admission H&P and DOD assessment. Vital Signs (Past 24 Hours) Last Vital Signs Temp 36.9 C 10/30/21 06:45 Pulse 89 10/30/21 06:47 Resp 16 10/30/21 06:45 BP 127/73 10/30/21 06:47 Pulse Ox 96 10/19/21 18:00 Principal Diagnosis schizophrenia Psychiatric Data See daily stay summary. In short, safety was maintained and the patient was cooperative with care. Medication changes included a trial of Risperdal but ultimately restart of Abilify with plan for transition to FARAH tomorrow as Abilify maintenna is non-formulary. He reported some increase in hallucinations during the cross taper with intermittent SI but denied any intent or plan to harm himself on the unit. He did agree to resume CM and met with Colin successfully prior to discharge. His sleep was markedly improved and he did not appear to be responding to internal stimuli for several days prior to discharge. He complained of nausea and required several doses of Zofran toward the end of his course of antibiotics for his UTI and the last dose was held. Hospitalist was consulted for management of urinary issues and he was started on Flomax with recommendation to follow up with PCP. He was admitted on a 201 but in discussions with treatment team and with plan to return to the care of Dr. Pizarro, a 304 hearing was held on the day of discharge, initially to seek outpatient commitment. Jamie initially denied thoughts to self-harm when asked by his assistant federal public defender but when asked again stated that he was suicidal. 304 inpatient was granted and the patient met with myself, nursing, child protective services social worker, and his supportive employment case manager to process. In the context of the hearing he stated these thoughts were related to the buzzin in his ears and fears that someone may try to kill him. These symptoms are essentially baseline for patient and have been present for >10 years. He also expressed concern that he was not getting treatment here and wanted his ears examined. He repeatedly declined an ear exam for reassurance and requested discharge immediately after the hearing. During the hearing he was requesting tranquilizers. Reviewed our ongoing philosophy re: his care as has misused and a history of overdose in an unsupervised setting. He indicated that when he says he wants to kill himself this means he is frustrated that he isn't getting the care he needs and will do it "some day" if needs aren't addressed. He denied active intent to harm himself and in fact made several plans with his supportive employment case manager that he was looking forward to. Colin will stop by the apartment later today with his medications and accompany him to his injection appointment and to get a new car battery tomorrow. The patient again requested discharge and was smiling in interactions on his way out the door. The patient is at significant risk for self-harm gesture. His comments in the hearing were taken seriously but his reports of SI in the context of seeking Valium are chronic. Issues that are amenable to acute inpatient hospitalization (like re-titrating medication, coordinating comprehensive care plan, commitment hearing) were completed and risk factors that can be mitigated were addressed. The patient clarified his statements and is future focussed. Paperwork was filed to convert his commitment to an outpatient commitment. Given his comments today, the short scripts sent for Abilify and Restoril were changed to dispense 7 days only at a time (max). I personally spoke with Sarwat the pharmacist on duty at [facility]. His Abilify injection was changed to 400 mg as in stock there and preference of Dr. Pizarro. Day of Discharge Assessment Today the patient voices readiness for discharge. They note improvement in sleep and deny imminent thoughts to harm self or others and are well aware of crisis protocols and have used them effectively in the past. He denies having large supplies of OTC meds. Thoughts remain organized and they are improved from admission. He did not appear to be responding to internal stimuli. They agree to take mediations as prescribed and keep follow-up appointments. They are stable for discharge to outpatient level of care. Transition of Care Transition Of Care Record: was reviewed with the patient Advance Directives Advance Directives Information Provided: Yes Advance Directives: No Mental Health Advance Directive: No Advance Directives on File: No Living Will: No Power of Road Crew Member: No Advance Directives Reason:: Declines as Mental Health Visit. Risk Factors Assessment Male: Yes : Yes Do You Have Access To A Gun?: No Mental Health Diagnoses: Yes Previous Attempt: Yes Previous Psychiatric Hospitalization: Yes Protective Factors Assessment Employed: No Stable Relationships: No Supportive Family: No Tobacco Cessation at Discharge Tobacco Cessation Medication Prescribed at Discharge: Not Applicable/Non-Smoker Antipsychotic Medications the patient is prescribed 2 different formulations of the same medication Abilify, the oral will likely be discontinued 2 weeks after his injection at the discretion of Dr. Pizarro. Total Time Total Time Spent: Greater Than 30 Minutes Total Time Includes: Examination of the patient, Discharge Planning, Medication Reconciliation, Communication with other providers and As well as (commitment hearing) Discharge Data Consultations 10/23/21 12:55 Consult Hospitalist Routine Lab Results 10/19/21 10/19/21 10/19/21 12:26 12:26 12:26 WBC 8.27 RBC 4.69 L Hgb 15.0 Hct 43.7 MCV 93.2 MCH 32.0 MCHC 34.3 RDW Std Deviation 43.9 RDW Coeff of Namita 13.0 Plt Count 328 MPV 9.2 Immature Gran % (Auto) 0.2 Neut % (Auto) 72.6 Lymph % (Auto) 16.0 Craig % (Auto) 9.6 Eos % (Auto) 1.2 Baso % (Auto) 0.4 Neut # (Auto) 6.01 Lymph # (Auto) 1.32 Craig # (Auto) 0.79 H Eos # (Auto) 0.10 Baso # (Auto) 0.03 Immature Gran # (Auto) 0.02 Sodium 136 Potassium 4.2 Chloride 101 Carbon Dioxide 28 Anion Gap 7 BUN 10 Creatinine 0.82 Est Cr Clr Drug Dosing 72.8 Est GFR ( Amer) 100.3 Est GFR (Non-Af Amer) 86.5 BUN/Creatinine Ratio 12.2 Glucose 100 H Estimat Average Glucose Hemoglobin A1c Calcium 9.7 Total Bilirubin 0.5 AST 24 ALT 21 Alkaline Phosphatase 94 Total Protein 7.1 Albumin 4.2 Globulin 2.9 Albumin/Globulin Ratio 1.4 Triglycerides Cholesterol LDL Cholesterol, Calc VLDL Cholesterol, Calc HDL Cholesterol Cholesterol/HDL Ratio TSH 0.812 Urine Color Urine Appearance Urine pH Ur Specific [place] Urine Protein Urine Glucose (UA) Urine Ketones Urine Blood Urine Nitrite Urine Bilirubin Urine Urobilinogen Ur Leukocyte Esterase Urine WBC (Auto) Urine RBC (Auto) U Hyaline Cast (Auto) U Epithel Cells (Auto) Urine Bacteria (Auto) Salicylates Urine Opiates Screen Ur Methadone, Qual Acetaminophen Urine Barbiturates Ur Phencyclidine (PCP) U Amphetamin/Meth Scrn MDMA (Ecstasy) Screen U Benzodiazepines Scrn Ur Cocaine Metabolite U Marijuana (THC) Screen Ethyl Alcohol mg/dL SARS-CoV-2, RNA, NAAT 10/19/21 10/19/21 10/19/21 12:26 12:26 12:47 WBC RBC Hgb Hct MCV MCH MCHC RDW Std Deviation RDW Coeff of Namita Plt Count MPV Immature Gran % (Auto) Neut % (Auto) Lymph % (Auto) Craig % (Auto) Eos % (Auto) Baso % (Auto) Neut # (Auto) Lymph # (Auto) Craig # (Auto) Eos # (Auto) Baso # (Auto) Immature Gran # (Auto) Sodium Potassium Chloride Carbon Dioxide Anion Gap BUN Creatinine Est Cr Clr Drug Dosing Est GFR ( Amer) Est GFR (Non-Af Amer) BUN/Creatinine Ratio Glucose Estimat Average Glucose Hemoglobin A1c Calcium Total Bilirubin AST ALT Alkaline Phosphatase Total Protein Albumin Globulin Albumin/Globulin Ratio Triglycerides Cholesterol LDL Cholesterol, Calc VLDL Cholesterol, Calc HDL Cholesterol Cholesterol/HDL Ratio TSH Urine Color Nolan Urine Appearance Clear Urine pH 7.0 Ur Specific [place] 1.005 Urine Protein Negative Urine Glucose (UA) Negative Urine Ketones Negative Urine Blood Trace H Urine Nitrite Positive A Urine Bilirubin Negative Urine Urobilinogen Negative Ur Leukocyte Esterase 2+ H Urine WBC (Auto) 10-30 H Urine RBC (Auto) 0-4 U Hyaline Cast (Auto) 0 U Epithel Cells (Auto) 0-5 Urine Bacteria (Auto) 2+ H Salicylates < 3.0 L Urine Opiates Screen Ur Methadone, Qual Acetaminophen < 3 L Urine Barbiturates Ur Phencyclidine (PCP) U Amphetamin/Meth Scrn MDMA (Ecstasy) Screen U Benzodiazepines Scrn Ur Cocaine Metabolite U Marijuana (THC) Screen Ethyl Alcohol mg/dL < 10.0 SARS-CoV-2, RNA, NAAT 10/19/21 10/19/21 10/20/21 12:47 12:47 08:35 WBC RBC Hgb Hct MCV MCH MCHC RDW Std Deviation RDW Coeff of Namita Plt Count MPV Immature Gran % (Auto) Neut % (Auto) Lymph % (Auto) Craig % (Auto) Eos % (Auto) Baso % (Auto) Neut # (Auto) Lymph # (Auto) Craig # (Auto) Eos # (Auto) Baso # (Auto) Immature Gran # (Auto) Sodium Potassium Chloride Carbon Dioxide Anion Gap BUN Creatinine Est Cr Clr Drug Dosing Est GFR ( Amer) Est GFR (Non-Af Amer) BUN/Creatinine Ratio Glucose Estimat Average Glucose 105 Hemoglobin A1c 5.3 Calcium Total Bilirubin AST ALT Alkaline Phosphatase Total Protein Albumin Globulin Albumin/Globulin Ratio Triglycerides Cholesterol LDL Cholesterol, Calc VLDL Cholesterol, Calc HDL Cholesterol Cholesterol/HDL Ratio TSH Urine Color Urine Appearance Urine pH Ur Specific [place] Urine Protein Urine Glucose (UA) Urine Ketones Urine Blood Urine Nitrite Urine Bilirubin Urine Urobilinogen Ur Leukocyte Esterase Urine WBC (Auto) Urine RBC (Auto) U Hyaline Cast (Auto) U Epithel Cells (Auto) Urine Bacteria (Auto) Salicylates Urine Opiates Screen Neg Ur Methadone, Qual Neg Acetaminophen Urine Barbiturates Neg Ur Phencyclidine (PCP) Neg U Amphetamin/Meth Scrn Neg MDMA (Ecstasy) Screen Neg U Benzodiazepines Scrn Neg Ur Cocaine Metabolite Neg U Marijuana (THC) Screen Neg Ethyl Alcohol mg/dL SARS-CoV-2, RNA, NAAT NEGATIVE 10/20/21 10/26/21 08:35 08:08 WBC RBC Hgb Hct MCV MCH MCHC RDW Std Deviation RDW Coeff of Namita Plt Count MPV Immature Gran % (Auto) Neut % (Auto) Lymph % (Auto) Craig % (Auto) Eos % (Auto) Baso % (Auto) Neut # (Auto) Lymph # (Auto) Craig # (Auto) Eos # (Auto) Baso # (Auto) Immature Gran # (Auto) Sodium 136 Potassium 3.8 Chloride 104 Carbon Dioxide 23 Anion Gap 9 BUN 11 Creatinine 0.98 Est Cr Clr Drug Dosing 60.9 Est GFR ( Amer) 87.1 Est GFR (Non-Af Amer) 75.1 BUN/Creatinine Ratio 11.2 Glucose 123 H Estimat Average Glucose Hemoglobin A1c Calcium 8.8 Total Bilirubin AST ALT Alkaline Phosphatase Total Protein Albumin Globulin Albumin/Globulin Ratio Triglycerides 46 Cholesterol 132 LDL Cholesterol, Calc 67 VLDL Cholesterol, Calc 9 HDL Cholesterol 56 Cholesterol/HDL Ratio 2.4 TSH Urine Color Urine Appearance Urine pH Ur Specific [place] Urine Protein Urine Glucose (UA) Urine Ketones Urine Blood Urine Nitrite Urine Bilirubin Urine Urobilinogen Ur Leukocyte Esterase Urine WBC (Auto) Urine RBC (Auto) U Hyaline Cast (Auto) U Epithel Cells (Auto) Urine Bacteria (Auto) Salicylates Urine Opiates Screen Ur Methadone, Qual Acetaminophen Urine Barbiturates Ur Phencyclidine (PCP) U Amphetamin/Meth Scrn MDMA (Ecstasy) Screen U Benzodiazepines Scrn Ur Cocaine Metabolite U Marijuana (THC) Screen Ethyl Alcohol mg/dL SARS-CoV-2, RNA, NAAT Hospital Course (1) Schizophrenia: 10/28/21: increase Abilify to 10 mg po qam. 10/27/21: Continue abilify. 304 outpatient hearing scheduled. 10/26/21: Completed paperwork for request for 201 to 304 outpatient commitment. Discontinue risperidone. Start abilify 5 mg po qd. 10/25/21: Continue with risperidone and other medications. Remains consistent in his agreement to work with his supportive employment case manager. 10/24/21: Increase risperidone to 1mg BID. Continue temazepam, bactrim, flomax. 10/23/21: Increase risperidone to 0.5 mg qAM & 1 mg qHS. Continue temazepam. Will start antibiotic for UTI. 10/22/21: Increase risperidone to 0.5 mg BID. Continue temazepam as he refuses consideration of any other medications for sleep. 10/21/21: Discontinue latuda due to restless legs. Start risperidone 0.25 qAM & 0.5 mg qHS. Temazepam for now, considering safer options given his age. 10/20/21: The patient was admitted to the [facility] ([facility] unit) on q15 min checks (behavioral with suicide precautions) for safety. The patient will participate in group, recreational, and milieu therapies and will be offered additional individual and family sessions as clinically appropriate. Risks/benefits/alternatives reviewed re: Latuda for hallucinations, I don't have immediate evidence that he has tried it before and there would be no means to try Vraylar or Rexulti as non-formulary. It would hopefully help from a depression standpoint as well. He is well aware of risks/benefits/TD/metabolic issues with antipsychotics and did have fasting labs this am. Mental Health & Subst Abuse Tx Psychiatrist Name of Psychiatrist: Aleksandra Pizarro Psychiatrist's Date of Appointment with Psychiatrist: 11/13/21 Time of Appointment with Psychiatrist: 11:00 a.m. Psychiatric Appointment Comment: [phone] [facility] ID Campground Manager Name of Campground Manager: Shruti Mcbride Phone Number for Campground Manager: [phone] Case Management Appointment Comment: [phone] [facility] Post Discharge Appointments Primary Care Physician Name Of Family Doctor: [facility] - Dr. Jeff Lopez Primary Care Date of Appointment with PCP: 10/30/21 Time of Appointment with PCP: 11:10 AM Provider Appointment Comment: [address] [facility] [address], [place], [place] Smoking Cessation Counseling Tobacco Cessation Medication Prescribed at Discharge: Not Applicable/Non-Smoker Contact Information Discharge Discharge [address]: [address] [place] [address], [place] [address] Discharge Plan Discharge Items Patient Disposition: Home - Self-Care Reason For Visit: MENTAL HEALTH EVAL,DX OF SCHIZOPHRENIA Discharge Diagnosis: schizophrenia Activity: Resume your previous activity Non-emergency contact: Primary Care Provider, Psychiatrist and Street Contractor Call non-emergency contact if: you have any medication questions and your symptoms worsen Follow-up/Referrals: Jeff Lopez MD [Primary Care Provider] - Diet: Regular Addtl Attending Provider Instructions: SPECIAL CARE INSTRUCTIONS: 1. Follow through with your scheduled aftercare appointments. If unable to keep an appointment, please call to reschedule. 2. Take your medication only as prescribed. Medication should not be changed or stopped without the approval of your doctor. In the event of worsening symptoms or concerns about side effects, contact your doctor immediately. 3. Utilize new healthy coping skills, anger management skills, and stress management skills learned during your hospitalization. Journal feelings and process them with a support person. Identify stressors or situations that may result in relapse, deterioration or inappropriate behaviors and develop a plan to deal with those issues. 4. If your coping skills are ineffective and you are in crisis, contact your outpatient providers for direction. If unable to reach your providers, please call the [facility] CRISIS LINE AT , go to the [facility] walk-in center at [address] [facility], [address], [place], or go to the closest Emergency Room. 5. Avoid alcohol and un-prescribed drugs. 6. You have been provided with the Mental Health Advance Directives Pamphlet for your review. 7. Your condition is stable for discharge to outpatient level of care, but recovery is an ongoing process. Ifthoughts to harm yourself or others return, follow the safety plan developed during your stay. Planning for a safe return home includes securing weapons. Our treatment team recommends weaponsbe removed from the home until your outpatient provider reassesses your progress. In rare cases where the items themselvescannot be removed, guns and ammunitionshould be secured separatelyand keys stored by a reliable personoutside of the home. If you were admitted on an involuntary commitment, the police or other legal authorities may be involved in this process. AFTERCARE APPOINTMENTS: * Please call your insurance company prior to your scheduled appointment to confirm your aftercare providers are covered. Take your insurance information to your appointments. WHO TO CALL AND WHEN: Medical Emergencies: For questions or emergencies related to your hospital stay, please contact the Inpatient Behavioral Health Unit at [phone]. A kersey department supervisor is on-call 11/03 for the Behavioral Health Unit for emergencies At any time you feel your situation is an emergency, you may also call 911 immediately. Pending Studies at Discharge: No Stand-Alone Forms: My [employer], Smoking Cessation Medications and DC Order Prescriptions: New melatonin 3 mg Tablet 3 mg PO HS 30 Days Qty: 30 RF: 0 tamsulosin 0.4 mg Capsule 0.4 mg PO HS 30 Days Qty: 30 RF: 0 ondansetron 4 mg Tablet,Disintegrating 4 mg PO Q6H PRN (Reason: Nausea) Qty: 10 RF: 0 aripiprazole [Abilify] 10 mg Tablet 10 mg PO QAM 15 Days Qty: 15 RF: 0 Abilify Maintena 400 mg suspension,extended rel recon 400 mg IM Q28D Qty: 1 RF: 0 Continued temazepam 15 mg capsule 15 mg PO HS PRN (Reason: Sleep) Qty: 15 RF: 0 Discontinued diazepam 5 mg tablet 5 mg PO HS PRN (Reason: Sleep) RF: 0 temazepam 15 mg capsule 15 mg PO HS PRN (Reason: Sleep) RF: 0 Abilify Maintena 300 mg Suspension,Extended Rel Syring 300 mg IM MONTHLY RF: 0 Discharge Orders: Discharge Order (Routine); Ordered 10/30/21 Ordered By: Sugey Alfredo Admission Data Admit Date/Time: 10/19/21 17:26 Attending Provider: Sugey Alfredo Admit Provider: Sugey Alfredo Primary Care Provider: Jeff Lopez Other Providers: Belinda Villagomez Other Interventions: Discharge Summary Assessment (RN) Last Done: 10/30/21 09:44 PSY Interdisciplinary Discharge Planning Last Done: 10/30/21 11:13 Coding Level of Care Code 86359 D/C day mgmt > 30 min Diagnoses Schizophrenia F20.9 Schizophrenia type: unspecified
--- NOTE | 2021-10-30 17:36 | Communication Note ---
Date of Service: October 30, 2021 Dr. Pizarro updated in anticipation of appointment tomorrow re: symptoms around/since discharge, resolving N, and rationale for low dose Abilify up to this point pending FARAH. He was thankful for the information and will assess oral Abilify dosing tomorrow am.
== END 2021-10-30 12:23 | disposition home or self-care (01) | DRG 885 ==
LOC: ED 12:08 → 3S 17:26

== ENCOUNTER 2022-04-13 11:23 | Inpatient (IN) ==
[2022-04-13] MEDS ORDERED: SODIUM CHLORIDE 0.9% 500 ML IV ONE (12:36)
--- NOTE | 2022-04-13 12:39 | Emergency Department Note ---
Impression & Plan Pulmonary embolism, Breath shortness, COVID-19, Weakness ED Provider Note NAME: SCOTT ROBERTO AGE: 77 SEX: M : 1945 ARRIVES VIA: Ambulance INFORMANT: Patient ED PROVIDER(S): Seth Angela DO CHIEF COMPLAINT: weak, covid + HPI: Patient is a 77-year-old gentleman with a past medical history of hallucinations, suicidal ideations, BPH, UTIs, and sepsis as well as schizophrenia who presents to the ER from the [facility] for mid and weakness. He is unable to get up and get around as he feels too weak. Pulse ox has been about 90%. He denies any headache or change in vision. No chest pain or shortness of breath. No belly pain. He denies any urinary symptoms. He just feels extremely weak and cannot ambulate. No dysuria, urgency, or frequency. H e had some back pain but that has abated. ROS: See above HPI for pertinent positives & negatives. A total of 10 systems reviewed and were otherwise negative. PAST MEDICAL HISTORY:See Below PAST SURGICAL HISTORY:See Below FAMILY HISTORY:See Below SOCIAL HISTORY:See Below HOME MEDICATIONS:See Below ALLERGIES:See Below VITALS:See Below PHYSICAL EXAMINATION: GENERAL: Sitting up in bed, alert, well appearing, well nourished, no distress, non-toxic EYE EXAM: normal conjunctiva. PERRL and EOM's grossly intact. OROPHARYNX: no exudate, no erythema, lips, buccal mucosa, and tongue normal and mucous membranes are moist NECK: supple, no nuchal rigidity, no adenopathy, non-tender LUNGS: Clear to auscultation. Normal chest wall mechanics HEART: no murmurs, S1 normal and S2 normal ABDOMEN: abdomen soft, non-tender, normo-active bowel sounds, no masses, no rebound or guarding. BACK: Back is symmetrical on inspection and there is no deformity, no midline tenderness, no CVA tenderness. UPPER EXTREMITIES: upper extremities are grossly normal. LOWER EXTREMITIES: No pitting edema. NEURO EXAM: Normal sensorium, cranial oriented to person, year and day nerves II-XII intact, normal speech, no weakness of arms, no weakness of legs. No drift. Finger to nose intact. Gross sensation intact. MEDICAL DECISION MAKING: Patient is a 37-year-old male who presents ER for referred in from the [facility] for weakness as he has been unable to walk. He has been recently diagnosed with COVID. He has not been found to be hypoxic. Labs show no significant leukocytosis or anemia. INR was unremarkable. D-dimer was elevated at 1300. BMP along with LFTs bilirubin and lipase was unremarkable. UA was contaminated with multiple epithelial cells. COVID-positive. CT angio of the chest shows small PE. Patient was updated bedside. He denies any bleeding risk factors, previous brain bleeds with the exception of a traumatic colon 6 to 7 years ago. No coughing up blood, vomiting blood, urinating blood or blood in his stools. 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 Chart was reviewed and patient was given a dose of heparin and placed on drip. Discussed with hospitalist admitted for further work-up. Triage Nursing notes reviewed. Limited review of prior medical records performed Vital Signs: reviewed and remarkable for no significant abnormalities Differential diagnosis: Infection, dehydration, metabolic abnormality, hypo/hyperglycemia, electrolyte disturbance, anemia, hypoxia, cardiac sources, intracerebral event, toxicologic, neurologic, as well as other pathologies. ER treatment provided: See below Diagnostics interpreted by me: ECG: Sinus rhythm rate [address] wave changes in the lateral leads QTC 436 Cardiac Monitoring: An order was placed for continuous cardiac monitoring. The monitor shows a rate of 80 with sinus rhythm. Laboratory studies: As stated above and show below. Imaging studies: CT angio chest shows PE Consultation(s): D/w Rodger Manzanares for further evaluation Procedures: none Critical Care: I have personally spent 32 minutes of critical care time in the direct management of this patient. This includes bedside care, interpretation of diagnostic studies, and testing, discussion with consultants, patient, and family members, and other required patient management activities. This 32 minutes is in excess of all separately billable procedures. Past Med/Surg History Medical History Benzodiazepine abuse BPH (benign prostatic hyperplasia) Closed head injury Fall Hypertension Hypokalemia Leukocytosis (08/14/13) Rhabdomyolysis (07/21/13) Scalp laceration Schizophrenia Tobacco use disorder Surgical History No pertinent past surgical history Family History Father Cancer Mother Cancer Other No pertinent family history Denies family history of Hearing loss No family history of adverse response to anesthesia No family history of bleeding disorder Heart disease Allergies Hypertension Stroke Asthma Social History Smoking Status: Former smoker Tobacco Type: Cigarettes packs per day: 1; Number of Years Since Quit: 1; Hx Alcohol Use: No Hx Substance Use: No Preferred Language: Barbadian Communication Ability: Effective Visual Impairment: No Limitations Hearing Ability: Normal Padder Cushion Required: No Beliefs That Will Affect Care: None marital status: Single Current Living Situation: Alone current occupational status: retired Feels Safe at Home: No Is there a partner from a previous relationship who is making you feel unsafe now?: No Assistive Devices: None Allergies Allergies Allergy/AdvReac Type Severity Reaction Status Date / Time No Known Allergies Allergy Verified 04/13/22 16:32 Home Meds Home Medications Medication Instructions Recorded Confirmed clonazepam 0.5 mg tablet 0.5 mg PO DAILY PRN Anxiety 04/13/22 04/13/22 Previous Rx's Medication Instructions Recorded aripiprazole 400 mg intramuscular 400 mg IM Q28D #1 ea 10/30/21 suspension,extended release (Abilify Maintena) temazepam 15 mg capsule 15 mg PO HS PRN Sleep #15 caps 10/30/21 Results & Data (ED) Vital Signs Vital Signs - 24 hr 04/13/22 11:08 04/13/22 11:33 04/13/22 12:35 Temperature 36.6 C Temperature Source Oral Pulse Rate 86 Pulse Rate [Apical] 81 Respiratory Rate 16 16 Blood Pressure 153/87 H Blood Pressure [Left Arm] 153/87 H Blood Pressure Mean 109 Blood Pressure Mean [Left Arm] 109 Pulse Oximetry 94 90 100 Oxygen Delivery Method Room Air Sepsis Recent Fever Within 48 Hours No Sepsis New/Unexplained Change in Mental Status No Sepsis Action Taken by Nursing No Action Required 04/13/22 13:33 Temperature Temperature Source Pulse Rate Pulse Rate [Apical] 83 Respiratory Rate 16 Blood Pressure Blood Pressure [Left Arm] 151/98 H Blood Pressure Mean Blood Pressure Mean [Left Arm] 115 Pulse Oximetry 95 Oxygen Delivery Method Sepsis Recent Fever Within 48 Hours Sepsis New/Unexplained Change in Mental Status Sepsis Action Taken by Nursing Laboratory Data Result diagrams: 04/13/22 11:48 04/13/22 11:48 Lab Results 04/13/22 04/13/22 04/13/22 Range/Units 11:48 11:48 11:48 WBC 7.95 (4.8-10.8) K/ul RBC 5.26 (4.63-6.08) M/uL Hgb 16.2 (14.0-18.0) g/dl Hct 49.4 (40.1-51.0) % MCV 93.9 (80.0-100.0) fL MCH 30.8 (25.0-34.0) pg MCHC 32.8 (32.0-36.0) g/dL RDW Std Deviation 45.8 (36.4-46.3) fL RDW Coeff of Namita 13.2 (11.5-14.5) % Plt Count 311 (130-400) K/uL MPV 8.8 L (9.4-12.4) fL Immature Gran % (Auto) 0.4 % Neut % (Auto) 84.1 % Lymph % (Auto) 7.7 % [place] % (Auto) 7.4 % Eos % (Auto) 0.1 % Baso % (Auto) 0.3 % Neut # (Auto) 6.69 H (1.4-6.5) K/uL Lymph # (Auto) 0.61 L (1.2-3.4) K/uL [place] # (Auto) 0.59 (0.24-0.82) K/uL Eos # (Auto) 0.01 (0-0.50) K/uL Baso # (Auto) 0.02 (0-0.2) K/uL Immature Gran # (Auto) 0.03 H (0.00-0.02) K/uL PT (9.0-12.0) Seconds INR (0.9-1.1) APTT (21.0-31.0) Seconds PTT Ratio D-Dimer 1390 H* (0-500) ug/L FEU Sodium 135 L (136-145) mmol/L Potassium 3.8 (3.5-5.1) mmol/L Chloride 98 (98-107) mmol/L Carbon Dioxide 28 (21-32) mmol/L Anion Gap 9 (3-11) BUN 17 (6-23) mg/dl Creatinine 0.71 (0.6-1.4) mg/dl Est Cr Clr Drug Dosing 88.5 ml/min Est GFR ( Amer) 105.6 ml/min Est GFR (Non-Af Amer) 91.1 ml/min BUN/Creatinine Ratio 23.9 H (10-20) Glucose 84 (70-99(Fasting)) mg/dl Calcium 9.7 (8.5-10.1) mg/dl Total Bilirubin 0.7 (0.2-1.0) mg/dl AST 20 (13-39) U/L ALT 36 (7-52) U/L Alkaline Phosphatase 139 H (34-104) U/L Troponin I High Sens 8.4 (0-20) pg/ml Total Protein 8.1 (6.0-8.3) gm/dl Albumin 4.4 (3.4-5.0) gm/dl Globulin 3.7 (2.5-4.0) gm/dl Albumin/Globulin Ratio 1.2 (0.9-2) Lipase 15 (11-82) U/L Urine Color Urine Appearance (Clear) Urine pH (4.5-7.5) Ur Specific [employer] (1.000-1.030) Urine Protein (Negative) Urine Glucose (UA) (Negative) Urine Ketones (Negative) Urine Blood (Negative) Urine Nitrite (Negative) Urine Bilirubin (Negative) Urine Urobilinogen (Negative) Ur Leukocyte Esterase (Negative) Urine WBC (Auto) (0-5) /hpf Urine RBC (Auto) (0-4) /hpf U Hyaline Cast (Auto) (0-5) /lpf U Epithel Cells (Auto) (0-5) /lpf Urine Bacteria (Auto) (Negative) SARS-CoV-2, RNA, NAAT (NEGATIVE) 04/13/22 04/13/22 04/13/22 Range/Units 11:48 12:48 14:19 WBC (4.8-10.8) K/ul RBC (4.63-6.08) M/uL Hgb (14.0-18.0) g/dl Hct (40.1-51.0) % MCV (80.0-100.0) fL MCH (25.0-34.0) pg MCHC (32.0-36.0) g/dL RDW Std Deviation (36.4-46.3) fL RDW Coeff of Namita (11.5-14.5) % Plt Count (130-400) K/uL MPV (9.4-12.4) fL Immature Gran % (Auto) % Neut % (Auto) % Lymph % (Auto) % [place] % (Auto) % Eos % (Auto) % Baso % (Auto) % Neut # (Auto) (1.4-6.5) K/uL Lymph # (Auto) (1.2-3.4) K/uL [place] # (Auto) (0.24-0.82) K/uL Eos # (Auto) (0-0.50) K/uL Baso # (Auto) (0-0.2) K/uL Immature Gran # (Auto) (0.00-0.02) K/uL PT 10.1 (9.0-12.0) Seconds INR 0.9 (0.9-1.1) APTT 25.8 (21.0-31.0) Seconds PTT Ratio 0.9 D-Dimer (0-500) ug/L FEU Sodium (136-145) mmol/L Potassium (3.5-5.1) mmol/L Chloride (98-107) mmol/L Carbon Dioxide (21-32) mmol/L Anion Gap (3-11) BUN (6-23) mg/dl Creatinine (0.6-1.4) mg/dl Est Cr Clr Drug Dosing ml/min Est GFR ( Amer) ml/min Est GFR (Non-Af Amer) ml/min BUN/Creatinine Ratio (10-20) Glucose (70-99(Fasting)) mg/dl Calcium (8.5-10.1) mg/dl Total Bilirubin (0.2-1.0) mg/dl AST (13-39) U/L ALT (7-52) U/L Alkaline Phosphatase (34-104) U/L Troponin I High Sens (0-20) pg/ml Total Protein (6.0-8.3) gm/dl Albumin (3.4-5.0) gm/dl Globulin (2.5-4.0) gm/dl Albumin/Globulin Ratio (0.9-2) Lipase (11-82) U/L Urine Color Dark Yellow Urine Appearance Cloudy A (Clear) Urine pH 7.0 (4.5-7.5) Ur Specific [employer] 1.023 (1.000-1.030) Urine Protein Negative (Negative) Urine Glucose (UA) Negative (Negative) Urine Ketones 2+ H (Negative) Urine Blood Negative (Negative) Urine Nitrite Negative (Negative) Urine Bilirubin Negative (Negative) Urine Urobilinogen Negative (Negative) Ur Leukocyte Esterase Trace H (Negative) Urine WBC (Auto) 1-5 (0-5) /hpf Urine RBC (Auto) 10-30 H (0-4) /hpf U Hyaline Cast (Auto) 1-5 (0-5) /lpf U Epithel Cells (Auto) 20-30 H (0-5) /lpf Urine Bacteria (Auto) Negative (Negative) SARS-CoV-2, RNA, NAAT POSITIVE A* (NEGATIVE) Administered Medications Heparin Sodium (Porcine) (Heparin Sod (Porcine) 1000 Unit/Ml) 5,000 units IV NOW ONE Stop: 04/13/22 14:47 Last Admin: 04/13/22 14:45 Dose: 5,000 units Documented By: JUS Co-signed By: CAL Sodium Chloride (Nss) 500 mls @ 999 mls/hr IV .Q31M ONE Stop: 04/13/22 13:06 Last Infusion: 04/13/22 13:23 Dose: 0 mls/hr Documented By: Admin: 04/13/22 12:52 Dose: 999 mls/hr Documented By: JUS Heparin Sodium/Dextrose (Heparin Sodium/Dextrose) 25,000 units in 500 mls @ 26 mls/hr IV .[id number] [facility]; Protocol Stop: 05/13/22 14:59 Last Titration: 04/13/22 16:42 Dose: 0 units/hr, 0 mls/hr Documented By: JUS Co-signed By: ISAIAH Admin: 04/13/22 14:45 Dose: 1,300 units/hr, 26 mls/hr Documented By: JUS Co-signed By: CAL Ioversol (Optiray 300 500ml) 120 ml IV ONCE ONE Stop: 04/13/22 13:57 Last Admin: 04/13/22 13:57 Dose: 120 ml Documented By: KRIS Imaging Data Radiologist's Impression: Chest CTA 04/13/22 13:22 CT ANGIOGRAPHY OF THE CHEST, PULMONARY EMBOLUS PROTOCOL CLINICAL HISTORY: Back pain. Covid. Evaluate for pulmonary embolus. COMPARISON STUDY: Chest radiograph May 29, 2022. TECHNIQUE: Following IV administration of 120 mL of Optiray, helical axial images of the chest were obtained utilizing the pulmonary embolus protocol. M aximal intensity projections and sagittal and coronal reformats were viewed on an independent 3D workstation. IV contrast was administered without complication. Automated exposure control was utilized for the study. A dose lowering technique was utilized adhering to the principles of ALARA. CT DOSE: 400.90 mGycm FINDINGS: There is a small subsegmental pulmonary embolus within the right middle lobe on axial image 109 of 271. No additional pulmonary emboli are identified. Mild cardiomegaly is noted. There is no thoracic aortic dissection. Trace bilateral pleural effusions are noted. Associated subpleural opacities reflect atelectasis. There is no consolidation to suggest pneumonia. Moderate upper lobe predominant emphysema is noted. Partially calcified biapical opacities favor scarring. No thoracic lymphadenopathy is present. A 2.7 cm hypodense left lobe thyroid nodule is incidentally noted. Multiple hepatic cysts are incidentally noted. Small hiatal hernia is present. IMPRESSION: 1. Small subsegmental pulmonary embolus within the right middle lobe. 2. Trace bilateral pleural effusions. Associated subpleural opacities reflect atelectasis. No consolidation to suggest pneumonia. 3. Emphysema. ACT 112: Negative or not required by law. Electronically signed by: Jose Montanez M.D. 04/13/2022 2:25 PM Discharge Plan Visit Data Chief Complaint: Back Injury/Pain Stated Complaint: Lower back pain ED Provider: Seth Angela Discharge Problem: Pulmonary embolism, Breath shortness, COVID-19, Weakness Forms Stand Alone Forms: My [facility] Evince Prescriptions Prescriptions: No Action clonazepam 0.5 mg tablet 0.5 mg PO DAILY PRN (Reason: Anxiety) temazepam 15 mg capsule 15 mg PO HS PRN (Reason: Sleep) Qty: 15 0RF Abilify Maintena 400 mg suspension,extended rel recon 400 mg IM Q28D Qty: 1 0RF Referrals Referrals: PCP,NO [Primary Care Provider] -
[2022-04-13 12:56] LABS: Basophils # (auto) 0.02 K/uL (0-0.2); Basophils % (auto) 0.3 %; Eosinophils # (auto) 0.01 K/uL (0-0.50); Eosinophils % (auto) 0.1 %; Hematocrit (blood only) 49.4 % (40.1-51.0); Hemoglobin 16.2 g/dl (14.0-18.0); Immature Granulocytes # (auto) 0.03 K/uL (0.00-0.02); Immature Granulocytes % (auto) 0.4 %; Lymphocytes # (auto) 0.61 K/uL (1.2-3.4); Lymphocytes % (auto) 7.7 %; Mean Corpuscular Hemoglobin 30.8 pg (25.0-34.0); Mean Corpuscular Hgb Conc 32.8 g/dL (32.0-36.0); Mean Corpuscular Volume 93.9 fL (80.0-100.0); Mean Platelet Volume 8.8 fL (9.4-12.4); Monocytes # (auto) 0.59 K/uL (0.24-0.82); Monocytes % (auto) 7.4 %; Neutrophils # (auto) 6.69 K/uL (1.4-6.5); Neutrophils % (auto) 84.1 %; Platelet Count 311 K/uL (130-400); RDW Coefficient of Variation 13.2 % (11.5-14.5); RDW Standard Deviation 45.8 fL (36.4-46.3); Red Blood Count 5.26 M/uL (4.63-6.08); White Blood Count 7.95 K/ul (4.8-10.8)
[2022-04-13 13:08] LABS: Albumin Globulin Ratio 1.2 (0.9-2); Albumin Level 4.4 gm/dl (3.4-5.0); BUN Creatinine Ratio 23.9 (10-20); Bilirubin,Total 0.7 mg/dl (0.2-1.0); Calcium 9.7 mg/dl (8.5-10.1); Creatinine Clr Calc Pharmacy 88.5 ml/min; Est GFR (African American) 105.6 ml/min; Est GFR (Non-African American) 91.1 ml/min; Globulin 3.7 gm/dl (2.5-4.0); Potassium 3.8 mmol/L (3.5-5.1); Total Protein 8.1 gm/dl (6.0-8.3)
[2022-04-13 13:13] LABS: Troponin I High Sensitivity 8.4 pg/ml (0-20)
[2022-04-13 13:17] LABS: D Dimer 1390 ug/L FEU (0-500)
[2022-04-13] MEDS ORDERED: OPTIRAY 300 500mL IV ONE (13:56)
--- NOTE | 2022-04-13 14:26 | CT Scan Report ---
CT ANGIOGRAPHY OF THE CHEST, PULMONARY EMBOLUS PROTOCOL CLINICAL HISTORY: Back pain. Covid. Evaluate for pulmonary embolus. COMPARISON STUDY: Chest radiograph May 29, 2022. TECHNIQUE: Following IV administration of 120 mL of Optiray, helical axial images of the chest were o btained utilizing the pulmonary embolus protocol. Maximal intensity projections and sagittal and cor onal reformats were viewed on an independent 3D workstation. IV contrast was administered without co mplication. Automated exposure control was utilized for the study. A dose lowering technique was ut ilized adhering to the principles of ALARA. CT DOSE: 400.90 mGycm FINDINGS: There is a small subsegmental pulmonary embolus within the right middle lobe on axial imag e 109 of 271. No additional pulmonary emboli are identified. Mild cardiomegaly is noted. There is no thoracic aortic dissection. Trace bilateral pleural effusions are noted. Associated subpleural opacit ies reflect atelectasis. There is no consolidation to suggest pneumonia. Moderate upper lobe predomin ant emphysema is noted. Partially calcified biapical opacities favor scarring. No thoracic lymphadeno yaw is present. A 2.7 cm hypodense left lobe thyroid nodule is incidentally noted. Multiple hepatic cysts are incidentally noted. Small hiatal hernia is present. IMPRESSION: 1. Small subsegmental pulmonary embolus within the right middle lobe. 2. Trace bilateral pleural effusions. Associated subpleural opacities reflect atelectasis. No consoli dation to suggest pneumonia. 3. Emphysema. ACT 112: Negative or not required by law. Electronically signed by: Jose Montanez M.D. 04/13/2022 2:25 PM
[2022-04-13] MEDS ORDERED: Heparin IV Adult Wt-Based Standard WITH Bolus Protocol IV STA (14:31)
[2022-04-13 14:46] LABS: Appearance Urine Cloudy (Clear); Bacteria Urine Automated Negative (Negative); Bilirubin Urine Negative (Negative); Blood Urine Negative (Negative); Color Urine Dark Yellow; Epithelial Cell Urine Auto 20-30 /lpf (0-5); Glucose Urine UA Negative (Negative); Ketones Urine 2+ (Negative); Leukocyte Esterase Urine Trace (Negative); Nitrite Urine Negative (Negative); Protein Urine Negative (Negative); Specific Gravity Urine 1.023 (1.000-1.030); Urobilinogen Urine Negative (Negative)
[2022-04-13] MEDS ORDERED: HEPARIN SOD (PORCINE) 1000 UNIT/ML IV ONE ×2 (14:46)
--- NOTE | 2022-04-13 14:49 | History & Physical Report ---
Date of Service April 13, 2022 Assessment & Plan (1) Single subsegmental pulmonary embolism without acute cor pulmonale: Plan: -Patient is currently afebrile, hemodynamically stable, and stable on RA -Started on heparin drip in the ED, will stop drip and start first dose of 10 mg BID eliquis x 7 days -Appears [facility] as he is still weak, a fall risk, and now anticoagulated -No chest pain, tachycardia, or hypoxia -Monitor pulse oximetry on [employer] for now (2) Lab test positive for detection of COVID-19 virus: Plan: -Patient is currently stable and only requiring symptomatic treatment -Can [facility] Sp[facility] and return to the ED if he becomes hypoxic (3) Generalized weakness: Plan: -Likely due to current Covid 19 infection -No focal neurologic defects on exam -Would expect his strength to improve as he recovers from his current infection -Will continue with IV fluids this afternoon with recent poor oral intake -PT/OT consults placed (4) Low back pain: Plan: -Patient states he had low back pain the past 3 days -Denies red flag symptoms -No tenderness or abnormal findings on physical exam -Would encourage patient to get out of bed more frequenttly and can treat with tylenol and lidocaine patches if needed (5) Auditory hallucination: Plan: -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 Manzanares History of Present Illness Chief Complaint: Generalized weakness and low back pain Primary Care Provider: NO PCP 77-year-old gentleman with a past medical history of schizophrenia, hallucinations, suicidal ideations, BPH, UTIs, and sepsis who [facility] and weakness.At the time of the exam the patient was resting in bed in no acute distress. He states that he began developing lower back pain and generalized weakness about 3 days ago. He denies saddle anesthesia and loss of bowel or bladder function. He describes that back pain as dull in nature and says that the pain is gone at the time of the exam. He denies current fever, chills, headache, changes in vision, hearing, taste, and smell, chest pain, abdominal pain, nausea, vomiting, diarrhea, hematuria, dysuria, melena and recent falls. During my exam the patient was able to stand and walk a few feet with the help of myself and the nurse and remained stable on room air. In the ED the patient was found to be covid positive, D-dimer of 1390, CTA of the chest revealed Small subsegmental pulmonary embolus within the right middle lobe, trace BL pleural effusions, and empasma. The patient was started on a heparin drip prior to my exam. Allergies Allergy/AdvReac Type Severity Reaction Status Date / Time No Known Allergies Allergy Verified 04/13/22 16:32 Home Medications Medication Instructions Recorded Confirmed Type aripiprazole 400 mg intramuscular 400 mg IM Q28D #1 ea 10/30/21 04/13/22 Rx suspension,extended release (Abilify Maintena) temazepam 15 mg capsule 15 mg PO HS PRN Sleep #15 caps 10/30/21 04/13/22 Rx clonazepam 0.5 mg tablet 0.5 mg PO DAILY PRN Anxiety 04/13/22 04/13/22 History Past Med/Surg History Medical History Benzodiazepine abuse BPH (benign prostatic hyperplasia) Closed head injury Fall Hypertension Hypokalemia Leukocytosis (08/14/13) Rhabdomyolysis (07/21/13) Scalp laceration Schizophrenia Tobacco use disorder Surgical History No pertinent past surgical history Family History Father Cancer Mother Cancer Other No pertinent family history Denies family history of Hearing loss No family history of adverse response to anesthesia No family history of bleeding disorder Heart disease Allergies Hypertension Stroke Asthma Social History Smoking Status: Former smoker Tobacco Type: Cigarettes packs per day: 1; Number of Years Since Quit: 1; Hx Alcohol Use: No Hx Substance Use: No Preferred Language: Albanian Communication Ability: Effective Visual Impairment: No Limitations Hearing Ability: Normal 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 All systems have been reviewed and are otherwise negative. Physical Exam Physical Exam: Physical Exam: General: In no acute distress, stated age, malnourished, poor hygiene HEENT: Normocephalic, atraumatic, no scleral icterus, pupils around round, symmetrical, and reactive to light, dry mucus membranes, trachea midline, no thyromegaly Chest/Pulm: No respiratory distress, symmetrical chest expansion, clear breath sounds throughout Cardiac: RRR, no murmurs noted Abdomen: Negative for ascites and bruising, normoactive bowel sounds, soft, non-tender to palpation throughout Musculoskeletal: No tenderness to palpation over the entire spine, no abnormalities or trauma noted on palpation of the spine, Symmetrical and without signs of acute trauma, upper and lower extremities with full ROM, no atrophy, spasticity, or flaccidity Extremities: Radial, dorsalis pedis, and posterior tibial pulses are intact and symmetrical, no edema noted in the BL LE's Skin: Warm, dry, no rashes , lesions, or scars noted Neuro: Alert and oriented to person,month, year, and no focal defects, CN II-XII tested and intact, finger to nose test negative, no tremors noted Psych: No acute distress, calm and cooperative during the exam Results & Data Results & Data ([facility]) Vital Signs (Past 12 Hours) Vital Signs Temp Pulse Pulse Resp BP BP Pulse Ox 04/13/22 13:33 83 16 151/98 H 95 04/13/22 12:35 100 04/13/22 11:33 81 16 153/87 H 90 04/13/22 11:08 36.6 C 86 16 153/87 H 94 O2 Del Method 04/13/22 13:33 04/13/22 12:35 04/13/22 11:33 04/13/22 11:08 Room Air Laboratory Results Abnormal lab results 04/13/22 04/13/22 04/13/22 Range/Units 11:48 11:48 11:48 MPV 8.8 L (9.4-12.4) fL Neut # (Auto) 6.69 H (1.4-6.5) K/uL Lymph # (Auto) 0.61 L (1.2-3.4) K/uL Immature Gran # (Auto) 0.03 H (0.00-0.02) K/uL D-Dimer 1390 H* (0-500) ug/L FEU Sodium 135 L (136-145) mmol/L BUN/Creatinine Ratio 23.9 H (10-20) Alkaline Phosphatase 139 H (34-104) U/L Urine Appearance (Clear) Urine Ketones (Negative) Ur Leukocyte Esterase (Negative) Urine RBC (Auto) (0-4) /hpf U Epithel Cells (Auto) (0-5) /lpf SARS-CoV-2, RNA, NAAT (NEGATIVE) 04/13/22 04/13/22 Range/Units 12:48 14:19 MPV (9.4-12.4) fL Neut # (Auto) (1.4-6.5) K/uL Lymph # (Auto) (1.2-3.4) K/uL Immature Gran # (Auto) (0.00-0.02) K/uL D-Dimer (0-500) ug/L FEU Sodium (136-145) mmol/L BUN/Creatinine Ratio (10-20) Alkaline Phosphatase (34-104) U/L Urine Appearance Cloudy A (Clear) Urine Ketones 2+ H (Negative) Ur Leukocyte Esterase Trace H (Negative) Urine RBC (Auto) 10-30 H (0-4) /hpf U Epithel Cells (Auto) 20-30 H (0-5) /lpf SARS-CoV-2, RNA, NAAT POSITIVE A* (NEGATIVE) Diagnostic Findings Chest CTA 04/13/22 13:22 CT ANGIOGRAPHY OF THE CHEST, PULMONARY EMBOLUS PROTOCOL CLINICAL HISTORY: Back pain. Covid. Evaluate for pulmonary embolus. COMPARISON STUDY: Chest radiograph May 29, 2022. TECHNIQUE: Following IV administration of 120 mL of Optiray, helical axial images of the chest were obtained utilizing the pulmonary embolus protocol. Maximal intensity projections and sagittal and coronal reformats were viewed on an independent 3D workstation. IV contrast was administered without complication. Automated exposure control was utilized for the study. A dose lowering technique was utilized adhering to the principles of ALARA. CT DOSE: 400.90 mGycm FINDINGS: There is a small subsegmental pulmonary embolus within the right middle lobe on axial image 109 of 271. No additional pulmonary emboli are identified. Mild cardiomegaly is noted. There is no thoracic aortic dissection. Trace bilateral pleural effusions are noted. Associated subpleural opacities reflect atelectasis. There is no consolidation to suggest pneumonia. Moderate upper lobe predominant emphysema is noted. Partially calcified biapical opacities favor scarring. No thoracic lymphadenopathy is present. A 2.7 cm hypodense left lobe thyroid nodule is incidentally noted. Multiple hepatic cysts are incidentally noted. Small hiatal hernia is present. IMPRESSION: 1. Small subsegmental pulmonary embolus within the right middle lobe. 2. Trace bilateral pleural effusions. Associated subpleural opacities reflect atelectasis. No consolidation to suggest pneumonia. 3. Emphysema. ACT 112: Negative or not required by law. Electronically signed by: Jose Montanez M.D. 04/13/2022 2:25 PM Medications Administered Heparin Sodium (Porcine) (Heparin Sod (Porcine) 1000 Unit/Ml) 5,000 units IV NOW ONE Stop: 04/13/22 14:47 Last Admin: 04/13/22 14:45 Dose: 5,000 units Documented By: JUS Co-signed By: CAL Sodium Chloride (Nss) 500 mls @ 999 mls/hr IV .Q31M ONE Stop: 04/13/22 13:06 Last Infusion: 04/13/22 13:23 Dose: 0 mls/hr Documented By: Admin: 04/13/22 12:52 Dose: 999 mls/hr Documented By: JUS Heparin Sodium/Dextrose (Heparin Sodium/Dextrose) 25,000 units in 500 mls @ 26 mls/hr IV .[id number] [facility]; Protocol Stop: 05/13/22 14:59 Last Admin: 04/13/22 14:45 Dose: 1,300 units/hr, 26 mls/hr Documented By: JUS Co-signed By: CAL Ioversol (Optiray 300 500ml) 120 ml IV ONCE ONE Stop: 04/13/22 13:57 Last Admin: 04/13/22 13:57 Dose: 120 ml Documented By: KRIS ECG Additional Comments: Poor data quality, interpretation may be adversely affected Normal sinus rhythm When compared with ECG of 09-MAR-2022 05:17, Premature ventricular complexes are no longer Present Nonspecific T wave abnormality, improved in Lateral leads Confirmed by Tarik Marrero ([id number]) on 03/30/2022 10:36:30 PM Code Status & VTE Plan Code Status Full code VTE Prophylaxis Plan VTE Prophylaxis will be ordered: Yes Supervising Physician Co-Signing Physician Notes I supervised Zohaib Huang PA-C on this admission. I interviewed and examined the patient independently of him. The plan is as written in his note except for any following changes/exceptions: None 77yo M w/ hx of psychiatric issues was sent from the [facility] for weakness. Found to have a PE and Covid. Not safe to return to [facility] as they have minimal staff to assist patients with moving. Plan for admission, PT/OT, and likely placement if he cannot regain strength. Apixaban for PE. PG Care Time/CCT Total # of Minutes Spent Total Time Spent with Patient: Total time spent is greater than 50% in coordination of care (as documented) at patient's floor/unit and/or counseling patient: C[place] [address] Initial Inpt Care Lvl 1 Patient Type Established Medical Decision Making Moderate Complexity Diagnoses Single subsegmental pulmonary embolism without acute cor pulmonale I26.93 Lab test positive for detection of COVID-19 virus U07.1 Generalized weakness R53.1 Low back pain M54.50 Auditory hallucination R44.0 BPH (benign prostatic hyperplasia) N40.0
[2022-04-13] MEDS ORDERED: HEPARIN SODIUM/DEXTROSE 25,000 UNITS/500 ML BAG IV SCH (15:00)
[2022-04-13 15:20] LABS: INR 0.9 (0.9-1.1); Partial Thromboplastin Ratio 0.9; Partial Thromboplastin Time 25.8 Seconds (21.0-31.0); Prothrombin Time 10.1 Seconds (9.0-12.0)
[2022-04-13] MEDS ORDERED: [UNRECOGNIZED DRUG - OTHER] IM SCH (18:36)
[2022-04-13] MEDS ORDERED: ARIPIPRAZOLE 400 MG IM SCH (18:36)
[2022-04-13] MEDS ORDERED: LACTATED RINGER'S 1,000 ML IV ONE (18:36)
[2022-04-13] MEDS ORDERED: ACETAMINOPHEN 325 MG TAB PO PRN (18:36)
[2022-04-13] MEDS: APIXABAN 5 MG TABLET PO SCH (20:17)
[2022-04-14 09:08] LABS: Hematocrit (blood only) 38.9 % (40.1-51.0); Hemoglobin 13.3 g/dl (14.0-18.0); Mean Corpuscular Hemoglobin 31.1 pg (25.0-34.0); Mean Corpuscular Hgb Conc 34.2 g/dL (32.0-36.0); Mean Corpuscular Volume 90.9 fL (80.0-100.0); Mean Platelet Volume 8.5 fL (9.4-12.4); Platelet Count 244 K/uL (130-400); RDW Coefficient of Variation 13.3 % (11.5-14.5); RDW Standard Deviation 44.3 fL (36.4-46.3); Red Blood Count 4.28 M/uL (4.63-6.08); White Blood Count 7.23 K/ul (4.8-10.8)
[2022-04-14] MEDS ORDERED: clonazePAM 0.5 MG TAB PO PRN (09:09)
[2022-04-14] MEDS ORDERED: TEMAZEPAM 15 MG CAPSULE PO PRN (09:09)
[2022-04-14 09:27] LABS: Calcium 8.2 mg/dl (8.5-10.1); Est GFR (African American) 107.5 ml/min; Est GFR (Non-African American) 92.8 ml/min; Potassium 3.7 mmol/L (3.5-5.1)
[2022-04-14] MEDS: APIXABAN 5 MG TABLET PO SCH ×2 (09:41→20:50)
[2022-04-14] MEDS ORDERED: REMDESIVIR 200 MG in SODIUM CHLORIDE 0.9% 210 ML IV ONE (10:00)
[2022-04-14] MEDS: dexAMETHasone 6 MG in SYRINGE 0 ML IV SCH (10:24)
--- NOTE | 2022-04-14 15:24 | Electrocardiogram Report ---
Test Reason : Blood Pressure : / mmHG Vent. Rate : 082 BPM Atrial Rate : 082 BPM P-R Int : 194 ms QRS Dur : 100 ms QT Int : 374 ms P-R-T Axes : 046 009 058 degrees QTc Int : 436 ms Normal sinus rhythm Incomplete right bundle branch block Borderline ECG When compared with ECG of 29-MAR-2022 11:21, T wave amplitude has increased in Lateral leads Confirmed by Trey Chong ([id number]) on 04/14/2022 3:23:57 PM Referred By: REFERRED SELF Confirmed By:Trey Chong
--- NOTE | 2022-04-14 19:36 | Hospitalist Progress Note ---
Date of Service April 14, 2022 Assessment & Plan (1) Single subsegmental pulmonary embolism without acute cor pulmonale: Plan: -Patient is currently afebrile, hemodynamically stable, and stable on RA, not requiring O2 PE likely 2/2 COVID -No chest pain, tachycardia, or hypoxia -Monitor pulse oximetry -continue Eliquis 10mg po bid x 21 days then go to 5mg po bid and complete 3 month course of anticoagulation no h/o bleeding other than when he had a ureteral stricture 50 years ago (2) Lab test positive for detection of COVID-19 virus: Plan: POx went to 93% this AM, is afebrile, has a mild cough no PNA on chest imaging start dexamethasone 6mg IV daily and Remdesevir x 5 day course monitor for worsening resp status weakness main complaint--> consult PT/OT (3) Generalized weakness: Plan: -Likely due to current Covid 19 infection -No focal neurologic defects on exam -Would expect his strength to improve as he recovers from his current infection -received IV fluids on admission with recent poor oral intake -PT/OT consults placed (4) Low back pain: Plan: -Patient states he had low back pain the past 3 days -Denies red flag symptoms -No tenderness or abnormal findings on physical exam -likely secondary to viral illness improving (5) Auditory hallucination: Plan: -Continue Abilify IM Consult Psych-came from [facility] but says he wants placement at [facility] from here (6) BPH (benign prostatic hyperplasia): Plan: -not on meds for this watch for urinary issues Plan Dispo-continued stay Admission and Anticipated Discharge Date Admission Date: April 13, 2022 Subjective Pt reports feeling "better already." Still feels weak and like he can't walk, but RN reports he independently ambulated to the bathroom and back. Has a mild cough. Denies headache, runny nose, sinus congestion, sore throat. Denies SOB, chest pain, abd pain, nausea. Has a good appetite. Denies diarrhea. I asked him if he would be returning to the [facility] hospital) after discharge from here and he stated "No, I went there by mistake." He desires to go to [facility] instead and would like me to look into that for him. Review of Systems Review of Systems: All systems reviewed & are unremarkable except as noted in HPI & below Physical Exam Constitutional: WD/WN, vitals as above Eyes: + anicteric sclerae Neck: trachea midline, no thyromegaly Respiratory: normal respiratory effort, lungs clear to auscultation Cardiovascular: RRR, no murmur, no edema Chest (Breasts): Chest: normal inspection of chest Gastrointestinal (Abdomen): normal bowel sounds, soft, nontender, no hepatosplenomegaly Musculoskeletal: Extremities: extremities normal to inspection; no cyanosis and no clubbing Skin: no rashes, warm and dry Neurologic: moves all extremities and awake; no focal motor deficits Psychiatric: A+Ox3, euthymic affect Lymphatic: no lymphedema Results & Data Results & Data ([facility]) Vital Signs (Past 12 Hours) Vital Signs Temp Pulse Resp BP Pulse Ox O2 Del Method 04/14/22 15:04 37.4 C 76 18 115/69 94 Room Air 04/14/22 10:07 36.7 C 83 18 154/75 H 96 Room Air Laboratory Results 04/14/22 04/14/22 Range/Units 08:53 08:53 WBC 7.23 (4.8-10.8) K/ul RBC 4.28 L (4.63-6.08) M/uL Hgb 13.3 L D (14.0-18.0) g/dl Hct 38.9 L (40.1-51.0) % MCV 90.9 (80.0-100.0) fL MCH 31.1 (25.0-34.0) pg MCHC 34.2 (32.0-36.0) g/dL RDW Std Deviation 44.3 (36.4-46.3) fL RDW Coeff of Namita 13.3 (11.5-14.5) % Plt Count 244 (130-400) K/uL MPV 8.5 L (9.4-12.4) fL Sodium 134 L (136-145) mmol/L Potassium 3.7 (3.5-5.1) mmol/L Chloride 102 (98-107) mmol/L Carbon Dioxide 26 (21-32) mmol/L Anion Gap 6 (3-11) BUN 17 (6-23) mg/dl Creatinine 0.68 (0.6-1.4) mg/dl Est Cr Clr Drug Dosing 89.0 ml/min Est GFR ( Amer) 107.5 ml/min Est GFR (Non-Af Amer) 92.8 ml/min BUN/Creatinine Ratio 25.0 H (10-20) Glucose 115 H (70-99(Fasting)) mg/dl Calcium 8.2 L (8.5-10.1) mg/dl PG Care Time/CCT Total # of Minutes Spent Total Time Spent with Patient: Total time spent is greater than 50% in coordination of care (as documented) at patient's floor/unit and/or counseling patient: Coding Level of Care Code 00619 Subseq Hosp Care Lvl 3 Diagnoses Single subsegmental pulmonary embolism without acute cor pulmonale I26.93 Lab test positive for detection of COVID-19 virus U07.1 Generalized weakness R53.1 Low back pain M54.50 Auditory hallucination R44.0 BPH (benign prostatic hyperplasia) N40.0
[2022-04-15] MEDS: APIXABAN 5 MG TABLET PO SCH ×2 (07:36→20:46)
[2022-04-15] MEDS: dexAMETHasone 6 MG in SYRINGE 0 ML IV SCH (07:36)
[2022-04-15 07:47] LABS: Hematocrit (blood only) 37.6 % (40.1-51.0); Hemoglobin 12.9 g/dl (14.0-18.0); Mean Corpuscular Hemoglobin 31.1 pg (25.0-34.0); Mean Corpuscular Hgb Conc 34.3 g/dL (32.0-36.0); Mean Corpuscular Volume 90.6 fL (80.0-100.0); Mean Platelet Volume 8.9 fL (9.4-12.4); Platelet Count 282 K/uL (130-400); RDW Standard Deviation 42.9 fL (36.4-46.3); Red Blood Count 4.15 M/uL (4.63-6.08); White Blood Count 8.67 K/ul (4.8-10.8)
[2022-04-15 08:15] LABS: Albumin Level 3.4 gm/dl (3.4-5.0); BUN Creatinine Ratio 31.3 (10-20); Bilirubin Direct 0.1 mg/dl (0-0.2); Bilirubin,Total 0.5 mg/dl (0.2-1.0); C Reactive Protein 3.67 mg/dl (0-0.5); Calcium 8.5 mg/dl (8.5-10.1); Creatinine Clr Calc Pharmacy 90.3 ml/min; Est GFR (African American) 108.2 ml/min; Est GFR (Non-African American) 93.3 ml/min; Potassium 3.6 mmol/L (3.5-5.1); Total Protein 6.2 gm/dl (6.0-8.3)
--- NOTE | 2022-04-15 11:57 | Psychiatric Consultation ---
Date of Consultation April 15, 2022 Impression / Recommendations Impression Long history of paranoid schizophrenia transferred from the [facility], where he was admitted on a 201 status for SI, for worsening weakness and found to be COVID+. He currently desires discharge to home and he denies SI and HI, continues to have his baseline chronic delusions and paranoia but denies any command auditory hallucinations and no evidence for acute psychosis and is able to meet his self-care needs. He plans to follow-up with his outpatient psychiatry appointment for his next dose of Abilify FARAH on Apr 27. Acute risk of self-harm is low given denial of SI, chronic risk is moderate given multiple non-modifiable risk factors including schizophrenia but also with protective factors. He is not felt to meet 302 criteria at this time. (1) Schizophrenia: Schizophrenia type: unspecified Qualified Code(s): F20.9 - Schizophrenia, unspecified (2) COVID-19: Plan -Stout to be appropriate for discharge from psychiatric standpoint once medically stable -has outpatient psychiatric follow-up Risk Factors Assessment Male: Yes : Yes Do You Have Access To A Gun?: No Mental Health Diagnoses: Yes Previous Attempt: Yes Previous Psychiatric Hospitalization: Yes Hopelessness: No Smoker: No Protective Factors Assessment Stable Relationships: Yes Good Rapport with Provider: Yes Telehealth Telehealth Options: Telephone only For the duration of the visit, provider was performing the assessment from: The same facility as the patient After establishing a telemedicine visit, patient was: Patient was verified with two unique identifiers, Patient/authorized rep acknowledged consent and understanding and Gave permission to continue telehealth session Total Time Spent (minutes): 20 Psych History Identifying Data 77 yo man with schizophrenia and benzodiazepine use disorder admitted medically for weakness found to be due to COVID and with PE. Psychiatry consulted for disposition recommendations. Chief Complaint "I feel good". History of Present Illness Met with Jamie via telemedicine due to his COVID+ status. Jamie is well to known the the psychiatry service from previous admissions to [facility] as well as consultations and recalls me from this interactions. He has chronic paranoid delusions and chronic command AH with thoughts of harming himself which ebb and flow over time. He has a history of benzodiazepine use disorder and frequently cites high dose benzodiazepines as being the only medication which will treat his auditory hallucinations and insomnia has became irritable when limits are set around this in the past. He was admitted in the [facility] last week for increased SI and command but tells me this was "an accident I was going to [place] I can't explain". States he was going to [place] to "get the chips out of my ears and off the top of my head". He got more weak at the [facility] and so they sent him to [facility]. He now knows he has COVID. He states "I feel good, I just can't move my legs well" stating "I think I was injected with botox" and wonders "if my girlfriend" did this and thinks maybe she did so while he was at [facility] stating "she pays people". However, he denies feeling unsafe, states he doesn't know her name. States he's been taking medications including Abilify FARAH and has been adherent but cannot recall when he last got it but knows he has an appointment on Apr 27 for his next injection. He denies any thoughts of SI and HI. He endorses auditory hallucinations telling him "business stuff". Yesterday he told the hospitalist he did not want to return to [facility] and wanted her to look into the process of having him go to [facility]. I discussed with him that this could be a possibility but due to COVID + status he would need to remain here in isolation until he was no longer infectious first. He considered this stating then "I would like be discharged home" and states he feels safe there. He states he isn't worried about walking at home because "they have elevators". He feels the weakness has resolved "I feel good". Past Psychiatric History Outpatient Services: Dr Pizarro for psychiatry and he has a Senior Technical Specialist, Lorna, through [employer] Previous Psych Admissions: multiple Do You Have Access To A Gun?: No Allergies Allergy/AdvReac Type Severity Reaction Status Date / Time No Known Allergies Allergy Verified 04/13/22 16:32 Home Medications Medication Instructions Recorded Confirmed Type aripiprazole 400 mg intramuscular 400 mg IM Q28D #1 ea 10/30/21 04/13/22 Rx suspension,extended release (Abilify Maintena) temazepam 15 mg capsule 15 mg PO HS PRN Sleep #15 caps 10/30/21 04/13/22 Rx clonazepam 0.5 mg tablet 0.5 mg PO DAILY PRN Anxiety 04/13/22 04/13/22 History Personal History Born In: [place], but moved frequently Beliefs That Will Affect Care: None Patient History Medical History Benzodiazepine abuse BPH (benign prostatic hyperplasia) Closed head injury Fall Hypertension Hypokalemia Leukocytosis (08/14/13) Rhabdomyolysis (07/21/13) Scalp laceration Schizophrenia Tobacco use disorder Surgical History No pertinent past surgical history Family History Father Cancer Mother Cancer Other No pertinent family history Denies family history of Hearing loss No family history of adverse response to anesthesia No family history of bleeding disorder Heart disease Allergies Hypertension Stroke Asthma Social History Smoking Status: Never smoker Tobacco Type: Cigarettes packs per day: 1; Number of Years Since Quit: 1; Hx Alcohol Use: No Hx Substance Use: No Preferred Language: Dominican Communication Ability: Effective Visual Impairment: No Limitations Hearing Ability: Normal Labor/Excavator Required: No Beliefs That Will Affect Care: None marital status: Single Current Living Situation: Personal Care Facility current occupational status: retired Feels Safe at Home: No Is there a partner from a previous relationship who is making you feel unsafe now?: No Assistive Devices: None Physical Exam Psychiatric: Orientation: alert and oriented x 3 Speech: normal rate/rhythm/volume of speech Mood: no depressed mood and no anxious mood Thought Process: + concrete thought process Thought Content: + paranoid and + delusions Suicidal Thoughts: denies suicidal thoughts Homicidal Thoughts: denies homicidal thoughts Hallucinations: + auditory hallucinations; no visual hallucinations Cognition: recent memory grossly intact, remote memory grossly intact, attention grossly intact and language grossly intact Insight: + limited insight Judgement: + fair judgement Vital Signs (Past 24 Hours): Last Vital Signs Temp 36.7 C 04/15/22 07:44 Pulse 72 04/15/22 07:44 Resp 18 04/15/22 07:44 BP 127/73 04/15/22 07:44 Pulse Ox 92 04/15/22 07:44 O2 Del Method 04/15/22 07:44 Review of Systems All systems reviewed & are unremarkable except as noted in HPI & below Results & Data (PSY) Medications Administered Apixaban (Apixaban 5 Mg Tablet) 10 mg PO BID [facility] Stop: 04/20/22 20:59 Last Admin: 04/15/22 07:36 Dose: 10 mg Documented By: Admin: 04/14/22 20:50 Dose: 10 mg Documented By: Admin: 04/14/22 09:41 Dose: 10 mg Documented By: Admin: 04/13/22 20:17 Dose: 10 mg Documented By: PACO Dexamethasone 6 mg/ Syringe 1.5 mls @ 1 mls/min IV QAM [facility] Stop: 05/14/22 09:14 Last Admin: 04/15/22 07:36 Dose: 1 mls/min Documented By: Admin: 04/14/22 10:24 Dose: 1 mls/min Documented By: FELICITA Coding Level of Care Code 17265 Inpt Consult Level 3 Diagnoses Schizophrenia F20.9 Schizophrenia type: unspecified COVID-19 U07.1
[2022-04-15] MEDS: REMDESIVIR 100 MG in SODIUM CHLORIDE 0.9% 230 ML IV SCH (12:58)
--- NOTE | 2022-04-15 16:51 | Hospitalist Progress Note ---
Date of Service April 15, 2022 Assessment & Plan (1) Single subsegmental pulmonary embolism without acute cor pulmonale: Plan: -Patient is currently afebrile, hemodynamically stable, and stable on RA, not requiring O2 PE likely 2/2 COVID -No chest pain, tachycardia, or significant hypoxia (POx 92% on RA at rest), no hemoptysis -Monitor pulse oximetry -continue Eliquis 10mg po bid x 21 days then go to 5mg po bid and complete 3 month course of anticoagulation no h/o bleeding other than when he had a ureteral stricture 50 years ago (2) Lab test positive for detection of COVID-19 virus: Plan: POx 92%on RA, is afebrile, has a mild cough that is now improving no PNA on chest imaging -continue dexamethasone 6mg IV daily and Remdesevir x 5 day course, but can dc Remdesvir if going home prior to completion of course monitor for worsening resp status weakness main complaint--> consult PT/OT-OT recommending SNF vs rehab and PT eval pending (3) Generalized weakness: Plan: -Likely due to current Covid 19 infection -No focal neurologic defects on exam -Would expect his strength to improve as he recovers from his current infection -received IV fluids on admission with recent poor oral intake -PT/OT consults placed as above (4) Low back pain: Plan: -reported low back painx 3 days on admission -Denies red flag symptoms -No tenderness or abnormal findings on physical exam -likely secondary to viral illness Now resolved (5) Auditory hallucination: Plan: -Continue Abilify IM, clonazepam prn, temazepam prn qhs Consult Psych-came from [facility] but says he is fine to go home Psych says safe to go home when medically stable, will help assist with outpt appointments (6) BPH (benign prostatic hyperplasia): Plan: -not on meds for this watch for urinary issues Plan Dispo-continued stay, improving from medical standpoint but OT recommending S NF/rehab. Await PT eval and dc to home vs SNF on Saturday Admission and Anticipated Discharge Date Admission Date: April 13, 2022 Subjective Pt feels better, feels stronger although OT recommending SNF vs rehab. Denies headache, sore throat, cough, SOB, CP, abd pain, nausea. He is eating and drinking. POx 92% on RA at rest. Review of Systems Review of Systems: All systems reviewed & are unremarkable except as noted in HPI & below Physical Exam Constitutional: WD/WN, vitals as above Eyes: + anicteric sclerae Neck: trachea midline, no thyromegaly Respiratory: normal respiratory effort, lungs clear to auscultation Cardiovascular: RRR, no murmur, no edema Chest (Breasts): Chest: normal inspection of chest Gastrointestinal (Abdomen): normal bowel sounds, soft, nontender, no hepatosplenomegaly Musculoskeletal: Extremities: extremities normal to inspection; no cyanosis and no clubbing Skin: no rashes, warm and dry Neurologic: moves all extremities and awake; no focal motor deficits Psychiatric: A+Ox3, euthymic affect Lymphatic: no lymphedema Results & Data Results & Data ([facility]) Vital Signs (Past 12 Hours) Vital Signs Temp Pulse Resp BP Pulse Ox O2 Del Method 04/15/22 07:44 36.7 C 72 18 127/73 92 Room Air 04/15/22 06:33 36.6 C 74 20 148/80 H 92 Room Air Laboratory Results 04/15/22 04/15/22 Range/Units 07:06 07:06 WBC 8.67 (4.8-10.8) K/ul RBC 4.15 L (4.63-6.08) M/uL Hgb 12.9 L (14.0-18.0) g/dl Hct 37.6 L (40.1-51.0) % MCV 90.6 (80.0-100.0) fL MCH 31.1 (25.0-34.0) pg MCHC 34.3 (32.0-36.0) g/dL RDW Std Deviation 42.9 (36.4-46.3) fL RDW Coeff of Namita 13.0 (11.5-14.5) % Plt Count 282 (130-400) K/uL MPV 8.9 L (9.4-12.4) fL Sodium 133 L (136-145) mmol/L Potassium 3.6 (3.5-5.1) mmol/L Chloride 102 (98-107) mmol/L Carbon Dioxide 24 (21-32) mmol/L Anion Gap 7 (3-11) BUN 21 (6-23) mg/dl Creatinine 0.67 (0.6-1.4) mg/dl Est Cr Clr Drug Dosing 90.3 ml/min Est GFR ( Amer) 108.2 ml/min Est GFR (Non-Af Amer) 93.3 ml/min BUN/Creatinine Ratio 31.3 H (10-20) Glucose 84 (70-99(Fasting)) mg/dl Calcium 8.5 (8.5-10.1) mg/dl Total Bilirubin 0.5 (0.2-1.0) mg/dl Direct Bilirubin 0.1 (0-0.2) mg/dl AST 22 (13-39) U/L ALT 36 (7-52) U/L Alkaline Phosphatase 97 (34-104) U/L C-Reactive Protein 3.67 H (0-0.5) mg/dl Total Protein 6.2 D (6.0-8.3) gm/dl Albumin 3.4 (3.4-5.0) gm/dl PG Care Time/CCT Total # of Minutes Spent Total Time Spent with Patient: Total time spent is greater than 50% in coordination of care (as documented) at patient's floor/unit and/or counseling patient: Coding Level of Care Code 89790 Subseq Hosp Care Lvl 2 Diagnoses Single subsegmental pulmonary embolism without acute cor pulmonale I26.93 Lab test positive for detection of COVID-19 virus U07.1 Generalized weakness R53.1 Low back pain M54.50 Auditory hallucination R44.0 BPH (benign prostatic hyperplasia) N40.0
[2022-04-16] MEDS: APIXABAN 5 MG TABLET PO SCH (07:12)
[2022-04-16] MEDS: dexAMETHasone 6 MG in SYRINGE 0 ML IV SCH (07:12)
[2022-04-16] MEDS: REMDESIVIR 100 MG in SODIUM CHLORIDE 0.9% 230 ML IV SCH (12:15)
--- NOTE | 2022-04-16 13:34 | Discharge Summary ---
Date of Service April 16, 2022 Admission HPI Per Admitting Provider 77-year-old gentleman with a past medical history of schizophrenia, hallucinations, suicidal ideations, BPH, UTIs, and sepsis who presents to the ER from the [facility] for low back pain and weakness.At the time of the exam the patient was resting in bed in no acute distress. He states that he began developing lower back pain and generalized weakness about 3 days ago. He denies saddle anesthesia and loss of bowel or bladder function. He describes that back pain as dull in nature and says that the pain is gone at the time of the exam. He denies current fever, chills, headache, changes in vision, hearing, taste, a nd smell, chest pain, abdominal pain, nausea, vomiting, diarrhea, hematuria, dysuria, melena and recent falls. During my exam the patient was able to stand and walk a few feet with the help of myself and the nurse and remained stable on room air. In the ED the patient was found to be covid positive, D-dimer of 1390, CTA of the chest revealed Small subsegmental pulmonary embolus within the right middle lobe, trace BL pleural effusions, and empasma. The patient was started on a heparin drip prior to my exam. Principal Diagnosis Acute pulmonary embolism, COVID positivity Discharge Exam General-alert and oriented x3, no fevers, no chills HEENT-head atraumatic and normocephalic, pupils equal and reactive to light, extraocular muscles intact Neck-no lymphadenopathy or thyromegaly, trachea midline Chest-clear to auscultation percussion. No rales wheezing or rhonchi Cardiac-regular rate and rhythm, normal S1 and S2, no murmurs Abdomen-normal bowel sounds, nontender, no hepatosplenomegaly Extremities-no cyanosis, clubbing, or edema Neuro-cranial nerves II through XII intact, motor and sensory function within normal limits, strength symmetrical , no focal deficits Psych-normal affect, normal mood Discharge Data Allergies Allergy/AdvReac Type Severity Reaction Status Date / Time No Known Allergies Allergy Verified 04/13/22 16:32 Consultations 04/13/22 14:40 ED Decision to Admit Stat 04/14/22 19:28 Consult Psychiatry Routine Ordered Studies 04/13/22 13:22 CT angio chest PE protocol Stat Hospital Course (1) Single subsegmental pulmonary embolism without acute cor pulmonale: not requiring O2 PE likely 2/2 COVID -No chest pain, tachycardia, or significant hypoxia (POx 92% on RA at rest), no hemoptysis -Monitor pulse oximetry -continue Eliquis 10mg po bid x 21 days then go to 5mg po bid and complete 3 month course of anticoagulation no h/o bleeding other than when he had a ureteral stricture 50 years ago (2) Lab test positive for detection of COVID-19 virus: No documented hypoxia. He has a mild cough that is now improving no PNA on chest imaging -continue dexamethasone 6mg IV daily and Remdesevir x 5 day course, but can dc Remdesvir if going home prior to completion of course monitor for worsening resp status weakness main complaint. He is not a candidate for SNF placement due to COVID positivity. He will be discharged to home at his request (3) Generalized weakness: -Likely due to current Covid 19 infection -No focal neurologic defects on exam -Would expect his strength to improve as he recovers from his current infection -received IV fluids on admission with recent poor oral intake -PT/OT ordered (4) Low back pain: -reported low back painx 3 days on admission -Denies red flag symptoms -No tenderness or abnormal findings on physical exam -likely secondary to viral illness Now resolved (5) Auditory hallucination: -Continue Abilify IM, clonazepam prn, temazepam prn qhs Consult Psych-came from [facility] but says he is fine to go home Psych says safe to go home when medically stable, will help assist with outpt appointments (6) BPH (benign prostatic hyperplasia): -not on meds for this watch for urinary issues Plan Dispo-Home today, April 16. He is not a candidate for SNF placement nor is he willing to go Total Time Total Time Spent Total Time Spent (In Minutes): 35 minutes Discharge Plan Discharge Items Patient Disposition: Home - Home Health Services Reason For Visit: GENERALIZED WEAKNESS Discharge Diagnosis: Acute pulmonary embolism, COVID positivity, weakness Activity: Resume your previous activity Non-emergency contact: Primary Care Provider Call non-emergency contact if: you have any medication questions Follow-up/Referrals: PCP,NO [Primary Care Provider] - Diet: Regular Addtl Attending Provider Instructions: Take Eliquis 10 mg twice a day for 20 more days then decrease dosage to 5 mg twice a day Pending Studies at Discharge: No Stand-Alone Forms: My [facility] [employer], Smoking Cessation Medications and DC Order Prescriptions: New Eliquis 5 mg Tablet See Rx Instructions .ROUTE .COMPLEX Qty: 60 0RF Rx Instructions: 10 mg twice daily for 20 more days then decrease dosage to 5 mg twice a day going forward Continued clonazepam 0.5 mg tablet 0.5 mg PO DAILY PRN (Reason: Anxiety) temazepam 15 mg capsule 15 mg PO HS PRN (Reason: Sleep) Qty: 15 0RF Abilify Maintena 400 mg suspension,extended rel recon 400 mg IM Q28D Qty: 1 0RF Discharge Orders: Discharge Order (Routine); Ordered 04/16/22 Ordered By: Crispin Madison Admission Data Admit Date/Time: 04/13/22 16:26 Attending Provider: Crispin Madison Admit Provider: Rodger Manzanares Primary Care Provider: PCP,NO Other Providers: Rodger Manzanares ; Rosa Silva ; Sugey Alfredo ; Lena Corey Coding Level of Care Code D/C DAY MANAGEMENT >30 MINS Diagnoses Single subsegmental pulmonary embolism without acute cor pulmonale I26.93 Lab test positive for detection of COVID-19 virus U07.1 Generalized weakness R53.1 Low back pain M54.50 Auditory hallucination R44.0 BPH (benign prostatic hyperplasia) N40.0
== END 2022-04-16 15:21 | disposition home health service (06) | DRG 177 ==
LOC: ED 11:23 → SUATTDRO 16:26 → EDINP 16:26 → 2W 18:35

== ENCOUNTER 2022-04-16 16:28 | Inpatient (IN) ==
--- NOTE | 2022-04-16 16:58 | Emergency Department Note ---
Impression & Plan COVID-19, Verbalizes suicidal thoughts, Discharge planning issues ED Provider Note CHIEF COMPLAINT: Mental health evaluation HISTORY OF PRESENT ILLNESS: This 77-year-old male patient presents to the emergency department with complaints of suicidal ideation. The patient was apparently recently admitted to the [facility] and subsequently admitted to [facility] for inpatient medical admission. He was discharged earlier today from the medical floor, where he apparently went to the police station and told them he was going to kill himself. Patient states he was discharged from the hospital without his phone, wallet or shoes. He states he cannot "do anything" looking like this. He is currently dressed in a clean T- shirt and sweatpants. Patient is upset because somebody was supposed to meet him at his apartment to let them in, but they did not show up. He now states that that man is likely going to kill him as he is "on the chip." He was brought back to the emergency department for further evaluation. The patient has tested positive for COVID within the last week. REVIEW OF SYSTEMS: A review of systems was performed with positives and pertinent negatives listed in the history of present illness. 10 systems were reviewed and are otherwise negative. ALLERGIES: see below MEDICATIONS: see below PMH: see below SOCIAL HISTORY: see below DDx:Mood disorder, infection, hypoglycemia, electrolyte abnormalities, cardiac sources, intracerebral event, toxicologic, trauma, neurologic, as well as other pathologies. PHYSICAL EXAM: Vital signs reviewed. General: Well-appearing , in no significant distress. HEENT: No scleral icterus, PERRLA, neck supple. Atraumatic. Cardiovascular: Regular rate and rhythm, no extra sounds. Pulmonary: Clear to auscultation bilaterally, normal work of breathing. Abdomen: Soft, nontender, nondistended, positive bowel sounds. Musculoskeletal: Atraumatic, no peripheral edema. Neurologic: Patient awake alert and oriented x 3 Psych: Denies suicidal ideation but states "I do not want to live," negative HI Skin: Warm, dry, no rash EMERGENCY DEPARTMENT COURSE/MDM: This patient was evaluated and appeared to be in no significant distress. Patient was dressed in a T-shirt and sweatpants with hospital socks in place. He was medically cleared and evaluated by the mental health welfare case worker. I did speak with the on-call psychiatrist, Dr. Alfredo, who knows the patient well. The patient has tested positive for COVID. As he was discharged from medical service earlier today, it is after hours and he has a complex discharge involving multiple outpatient services, it was felt best to have the patient admitted by the medical service due to the positive COVID for discharge planning in the morning. His personal welfare case worker will likely be available, we can hopefully gather his personal belongings and assist him into his apartment with services. The patient is agreeable to staying with medicine service in the hospital. MONITORING: An order for cardiac monitoring was placed and the patient is noted to be in a NSR at 72 beats per minute. RADS: refused CXR EKG: Normal sinus rhythm 82 bpm. Incomplete right bundle branch block. Borderline EKG. QTc is 436. No PVC, no PAC. Normal ST segments. When c ompared to March 29, 2022, T wave amplitude has increased in the lateral leads. DISPOSITION: Admission Past Med/Surg History Medical History Benzodiazepine abuse BPH (benign prostatic hyperplasia) Closed head injury Fall Hypertension Hypokalemia Leukocytosis (08/14/13) Rhabdomyolysis (07/21/13) Scalp laceration Schizophrenia Tobacco use disorder Surgical History No pertinent past surgical history Family History Father Cancer Mother Cancer Other No pertinent family history Denies family history of Hearing loss No family history of adverse response to anesthesia No family history of bleeding disorder Heart disease Allergies Hypertension Stroke Asthma Social History Smoking Status: Never smoker Tobacco Type: Cigarettes packs per day: 1; Number of Years Since Quit: 1; Hx Alcohol Use: No Hx Substance Use: No Preferred Language: Spanish Communication Ability: Effective Visual Impairment: No Limitations Hearing Ability: Normal Barrer [place] Tacker Required: No Beliefs That Will Affect Care: None marital status: Single Current Living Situation: Alone current occupational status: retired Feels Safe at Home: Yes Assistive Devices: None Allergies Allergies Allergy/AdvReac Type Severity Reaction Status Date / Time No Known Allergies Allergy Verified 04/13/22 16:32 Home Meds Home Medications Medication Instructions Recorded Confirmed clonazepam 0.5 mg tablet 0.5 mg PO DAILY PRN Anxiety 04/13/22 04/13/22 Previous Rx's Medication Instructions Recorded aripiprazole 400 mg intramuscular 400 mg IM Q28D #1 ea 10/30/21 suspension,extended release (Abiliflouie Maintena) temazepam 15 mg capsule 15 mg PO HS PRN Sleep #15 caps 10/30/21 apixaban 5 mg tablet (Eliquis) See Rx Instructions .Route 04/16/22 .COMPLEX #60 tabs Results & Data (ED) Vital Signs Vital Signs - 24 hr 04/16/22 16:32 04/16/22 20:10 Temperature 36.1 C L Temperature Source Temporal Artery Scan Pulse Rate 99 H Pulse Rate [Left Finger] 123 H Pulse Rhythm [Left Finger] Regular Pulse Strength [Left Finger] Normal Respiratory Rate 18 20 Respiratory Effort / Characteristics Non-Labored Non-Labored Spontaneous Respiratory Depth Normal Normal Blood Pressure 165/86 H Blood Pressure [Left Arm] 163/77 H Blood Pressure Mean 112 Blood Pressure Mean [Left Arm] 105 Pulse Oximetry 93 94 Oxygen Delivery Method Room Air Room Air Sepsis Recent Fever Within 48 Hours No Sepsis New/Unexplained Change in Mental Status No Sepsis Action Taken by Nursing No Action Required Home Medications Current Medication List: was personally reviewed by me Laboratory Data Attestation: I reviewed the patient's lab results. Result diagrams: 04/16/22 17:03 04/16/22 17:03 Lab Results 04/16/22 04/16/22 04/16/22 Range/Units 16:51 17:03 17:03 WBC 9.54 (4.8-10.8) K/ul RBC 5.18 (4.63-6.08) M/uL Hgb 16.0 D (14.0-18.0) g/dl Hct 46.6 (40.1-51.0) % MCV 90.0 (80.0-100.0) fL MCH 30.9 (25.0-34.0) pg MCHC 34.3 (32.0-36.0) g/dL RDW Std Deviation 43.0 (36.4-46.3) fL RDW Coeff of Namita 13.0 (11.5-14.5) % Plt Count 385 (130-400) K/uL MPV 8.8 L (9.4-12.4) fL Immature Gran % (Auto) 0.5 % Neut % (Auto) 86.9 % Lymph % (Auto) 5.2 % [place] % (Auto) 7.3 % Eos % (Auto) 0.0 % Baso % (Auto) 0.1 % Neut # (Auto) 8.28 H (1.4-6.5) K/uL Lymph # (Auto) 0.50 L (1.2-3.4) K/uL [place] # (Auto) 0.70 (0.24-0.82) K/uL Eos # (Auto) 0.00 (0-0.50) K/uL Baso # (Auto) 0.01 (0-0.2) K/uL Immature Gran # (Auto) 0.05 H (0.00-0.02) K/uL Sodium 133 L (136-145) mmol/L Potassium 3.7 (3.5-5.1) mmol/L Chloride 101 (98-107) mmol/L Carbon Dioxide 19 L (21-32) mmol/L Anion Gap 13 H (3-11) BUN 17 (6-23) mg/dl Creatinine 0.80 (0.6-1.4) mg/dl Est Cr Clr Drug Dosing 73.4 ml/min Est GFR ( Amer) 100.6 ml/min Est GFR (Non-Af Amer) 86.8 ml/min BUN/Creatinine Ratio 21.3 H (10-20) Glucose 132 H (70-99(Fasting)) mg/dl Calcium 9.1 (8.5-10.1) mg/dl Total Bilirubin 0.7 (0.2-1.0) mg/dl AST 23 (13-39) U/L ALT 45 (7-52) U/L Alkaline Phosphatase 119 H (34-104) U/L Total Protein 7.9 D (6.0-8.3) gm/dl Albumin 4.2 (3.4-5.0) gm/dl Globulin 3.7 (2.5-4.0) gm/dl Albumin/Globulin Ratio 1.1 (0.9-2) TSH (0.300-4.500) uIu/ml Urine Color Urine Appearance (Clear) Urine pH (4.5-7.5) Ur Specific [place] (1.000-1.030) Urine Protein (Negative) Urine Glucose (UA) (Negative) Urine Ketones (Negative) Urine Blood (Negative) Urine Nitrite (Negative) Urine Bilirubin (Negative) Urine Urobilinogen (Negative) Ur Leukocyte Esterase (Negative) Urine WBC (Auto) (0-5) /hpf Urine RBC (Auto) (0-4) /hpf U Hyaline Cast (Auto) (0-5) /lpf U Epithel Cells (Auto) (0-5) /lpf Urine Bacteria (Auto) (Negative) Salicylates (3.0-30) mg/dl Urine Opiates Screen (Neg) Ur Methadone, Qual (Neg) Acetaminophen (10-30) ug/ml Urine Barbiturates (Neg) Ur Phencyclidine (PCP) (Neg) U Amphetamin/Meth Scrn (Neg) MDMA (Ecstasy) Screen (Neg) U Benzodiazepines Scrn (Neg) Ur Cocaine Metabolite (Neg) U Marijuana (THC) Screen (Neg) Ethyl Alcohol mg/dL (<10.0) mg/dl SARS-CoV-2, RNA, NAAT POSITIVE A* (NEGATIVE) 04/16/22 04/16/22 04/16/22 Range/Units 17:03 17:03 17:03 WBC (4.8-10.8) K/ul RBC (4.63-6.08) M/uL Hgb (14.0-18.0) g/dl Hct (40.1-51.0) % MCV (80.0-100.0) fL MCH (25.0-34.0) pg MCHC (32.0-36.0) g/dL RDW Std Deviation (36.4-46.3) fL RDW Coeff of Namita (11.5-14.5) % Plt Count (130-400) K/uL MPV (9.4-12.4) fL Immature Gran % (Auto) % Neut % (Auto) % Lymph % (Auto) % [place] % (Auto) % Eos % (Auto) % Baso % (Auto) % Neut # (Auto) (1.4-6.5) K/uL Lymph # (Auto) (1.2-3.4) K/uL [place] # (Auto) (0.24-0.82) K/uL Eos # (Auto) (0-0.50) K/uL Baso # (Auto) (0-0.2) K/uL Immature Gran # (Auto) (0.00-0.02) K/uL Sodium (136-145) mmol/L Potassium (3.5-5.1) mmol/L Chloride (98-107) mmol/L Carbon Dioxide (21-32) mmol/L Anion Gap (3-11) BUN (6-23) mg/dl Creatinine (0.6-1.4) mg/dl Est Cr Clr Drug Dosing ml/min Est GFR ( Amer) ml/min Est GFR (Non-Af Amer) ml/min BUN/Creatinine Ratio (10-20) Glucose (70-99(Fasting)) mg/dl Calcium (8.5-10.1) mg/dl Total Bilirubin (0.2-1.0) mg/dl AST (13-39) U/L ALT (7-52) U/L Alkaline Phosphatase (34-104) U/L Total Protein (6.0-8.3) gm/dl Albumin (3.4-5.0) gm/dl Globulin (2.5-4.0) gm/dl Albumin/Globulin Ratio (0.9-2) TSH 1.859 (0.300-4.500) uIu/ml Urine Color Urine Appearance (Clear) Urine pH (4.5-7.5) Ur Specific [place] (1.000-1.030) Urine Protein (Negative) Urine Glucose (UA) (Negative) Urine Ketones (Negative) Urine Blood (Negative) Urine Nitrite (Negative) Urine Bilirubin (Negative) Urine Urobilinogen (Negative) Ur Leukocyte Esterase (Negative) Urine WBC (Auto) (0-5) /hpf Urine RBC (Auto) (0-4) /hpf U Hyaline Cast (Auto) (0-5) /lpf U Epithel Cells (Auto) (0-5) /lpf Urine Bacteria (Auto) (Negative) Salicylates < 3.0 L (3.0-30) mg/dl Urine Opiates Screen (Neg) Ur Methadone, Qual (Neg) Acetaminophen < 3 L (10-30) ug/ml Urine Barbiturates (Neg) Ur Phencyclidine (PCP) (Neg) U Amphetamin/Meth Scrn (Neg) MDMA (Ecstasy) Screen (Neg) U Benzodiazepines Scrn (Neg) Ur Cocaine Metabolite (Neg) U Marijuana (THC) Screen (Neg) Ethyl Alcohol mg/dL < 10.0 (<10.0) mg/dl SARS-CoV-2, RNA, NAAT (NEGATIVE) 04/16/22 04/16/22 Range/Units 17:14 17:14 WBC (4.8-10.8) K/ul RBC (4.63-6.08) M/uL Hgb (14.0-18.0) g/dl Hct (40.1-51.0) % MCV (80.0-100.0) fL MCH (25.0-34.0) pg MCHC (32.0-36.0) g/dL RDW Std Deviation (36.4-46.3) fL RDW Coeff of Namita (11.5-14.5) % Plt Count (130-400) K/uL MPV (9.4-12.4) fL Immature Gran % (Auto) % Neut % (Auto) % Lymph % (Auto) % [place] % (Auto) % Eos % (Auto) % Baso % (Auto) % Neut # (Auto) (1.4-6.5) K/uL Lymph # (Auto) (1.2-3.4) K/uL [place] # (Auto) (0.24-0.82) K/uL Eos # (Auto) (0-0.50) K/uL Baso # (Auto) (0-0.2) K/uL Immature Gran # (Auto) (0.00-0.02) K/uL Sodium (136-145) mmol/L Potassium (3.5-5.1) mmol/L Chloride (98-107) mmol/L Carbon Dioxide (21-32) mmol/L Anion Gap (3-11) BUN (6-23) mg/dl Creatinine (0.6-1.4) mg/dl Est Cr Clr Drug Dosing ml/min Est GFR ( Amer) ml/min Est GFR (Non-Af Amer) ml/min BUN/Creatinine Ratio (10-20) Glucose (70-99(Fasting)) mg/dl Calcium (8.5-10.1) mg/dl Total Bilirubin (0.2-1.0) mg/dl AST (13-39) U/L ALT (7-52) U/L Alkaline Phosphatase (34-104) U/L Total Protein (6.0-8.3) gm/dl Albumin (3.4-5.0) gm/dl Globulin (2.5-4.0) gm/dl Albumin/Globulin Ratio (0.9-2) TSH (0.300-4.500) uIu/ml Urine Color Yellow Urine Appearance Clear (Clear) Urine pH 7.5 (4.5-7.5) Ur Specific [place] 1.010 (1.000-1.030) Urine Protein Negative (Negative) Urine Glucose (UA) Negative (Negative) Urine Ketones Negative (Negative) Urine Blood 2+ H (Negative) Urine Nitrite Negative (Negative) Urine Bilirubin Negative (Negative) Urine Urobilinogen Negative (Negative) Ur Leukocyte Esterase Negative (Negative) Urine WBC (Auto) 1-5 (0-5) /hpf Urine RBC (Auto) >30 H (0-4) /hpf U Hyaline Cast (Auto) 0 (0-5) /lpf U Epithel Cells (Auto) 5-10 H (0-5) /lpf Urine Bacteria (Auto) Negative (Negative) Salicylates (3.0-30) mg/dl Urine Opiates Screen Neg (Neg) Ur Methadone, Qual Neg (Neg) Acetaminophen (10-30) ug/ml Urine Barbiturates Neg (Neg) Ur Phencyclidine (PCP) Neg (Neg) U Amphetamin/Meth Scrn Neg (Neg) MDMA (Ecstasy) Screen Neg (Neg) U Benzodiazepines Scrn Neg (Neg) Ur Cocaine Metabolite Neg (Neg) U Marijuana (THC) Screen Neg (Neg) Ethyl Alcohol mg/dL (<10.0) mg/dl SARS-CoV-2, RNA, NAAT (NEGATIVE) Administered Medications Dexamethasone (Dexamethasone 4 Mg Tab) 4 mg PO [facility] Stop: 05/17/22 08:59 Last Admin: 04/21/22 08:03 Dose: 4 mg Documented By: Admin: 04/20/22 08:29 Dose: Not Given Documented By: Admin: 04/19/22 08:10 Dose: Not Given Documented By: Admin: 04/18/22 10:23 Dose: Not Given Documented By: Admin: 04/17/22 08:30 Dose: Not Given Documented By: APARNA Rivaroxaban (Rivaroxaban 15 Mg Tab) 15 mg PO BID MAG Stop: 05/11/22 23:59 Last Admin: 04/21/22 08:03 Dose: Not Given Documented By: Admin: 04/20/22 20:17 Dose: Not Given Documented By: Admin: 04/20/22 08:29 Dose: Not Given Documented By: ALEX Temazepam (Temazepam 15 Mg Capsule) 15 mg PO HS PRN PRN Reason: Sleep Stop: 05/16/22 23:00 Last Admin: 04/20/22 20:35 Dose: 15 mg Documented By: ALMA Discontinued Medications Apixaban (Apixaban 5 Mg Tablet) 10 mg PO BID MAG Stop: 05/06/22 23:00 Last Admin: 04/19/22 21:01 Dose: Not Given Documented By: Admin: 04/19/22 08:10 Dose: Not Given Documented By: Admin: 04/18/22 20:01 Dose: Not Given Documented By: GABRIELA(2) Admin: 04/18/22 10:23 Dose: Not Given Documented By: Admin: 04/17/22 22:19 Dose: Not Given Documented By: GABRIELA(2) Admin: 04/17/22 08:30 Dose: Not Given Documented By: Admin: 04/17/22 02:04 Dose: Not Given Documented By: GABRIELA(2) Remdesivir 100 mg/ Sodium (Chloride) 250 mls @ 250 mls/hr IV DAILY@1200 MAG Stop: 04/18/22 12:59 Last Admin: 04/18/22 11:58 Dose: Not Given Documented By: Admin: 04/17/22 12:01 Dose: Not Given Documented By: APARNA Lactated Ringer's (Lr) 1,000 mls @ 125 mls/hr IV .Q8H [facility] Stop: 04/17/22 07:00 Last Admin: 04/17/22 08:30 Dose: Not Given Documented By: APARNA Blood Pressure Blood Pressure Findings: Normal blood pressure Blood Pressure Disposition: did not require urgent referral Discharge Plan Visit Data Chief Complaint: Mental Health Evaluation Stated Complaint: MENTAL HEALTH EVALUATION ED Provider: Abida Mcclure Discharge Problem: COVID-19, Verbalizes suicidal thoughts, Discharge planning issues Patient Disposition: Admitted As Inpatient Discharge Instructions Interventions: ED Discharge Assessment Last Done: 04/16/22 22:33
[2022-04-16 17:31] LABS: Appearance Urine Clear (Clear); Bacteria Urine Automated Negative (Negative); Bilirubin Urine Negative (Negative); Blood Urine 2+ (Negative); Cast Urine Automated 0 /lpf (0-5); Color Urine Yellow; Glucose Urine UA Negative (Negative); Ketones Urine Negative (Negative); Leukocyte Esterase Urine Negative (Negative); Nitrite Urine Negative (Negative); Protein Urine Negative (Negative); RBC Urine Automated >30 /hpf (0-4); Urobilinogen Urine Negative (Negative); pH Urine 7.5 (4.5-7.5)
[2022-04-16 17:52] LABS: Acetaminophen < 3 ug/ml (10-30); Salicylate < 3.0 mg/dl (3.0-30)
[2022-04-16 17:55] LABS: Albumin Globulin Ratio 1.1 (0.9-2); Albumin Level 4.2 gm/dl (3.4-5.0); BUN Creatinine Ratio 21.3 (10-20); Bilirubin,Total 0.7 mg/dl (0.2-1.0); Calcium 9.1 mg/dl (8.5-10.1); Creatinine Clr Calc Pharmacy 73.4 ml/min; Est GFR (African American) 100.6 ml/min; Est GFR (Non-African American) 86.8 ml/min; Globulin 3.7 gm/dl (2.5-4.0); Potassium 3.7 mmol/L (3.5-5.1); Total Protein 7.9 gm/dl (6.0-8.3)
[2022-04-16 18:03] LABS: Amphetamines+Metham, Urine Neg (Neg); Barbiturates, Urine Neg (Neg); Benzodiazepine, Urine Neg (Neg); Cocaine, Urine Neg (Neg); MDMA (Ecstacy), Urine Neg (Neg); Methadone, Urine Neg (Neg); Opiate, Urine Neg (Neg); Phencyclidine, Urine Neg (Neg)
[2022-04-16 19:06] LABS: Basophils # (auto) 0.01 K/uL (0-0.2); Basophils % (auto) 0.1 %; Hematocrit (blood only) 46.6 % (40.1-51.0); Immature Granulocytes # (auto) 0.05 K/uL (0.00-0.02); Immature Granulocytes % (auto) 0.5 %; Lymphocytes % (auto) 5.2 %; Mean Corpuscular Hemoglobin 30.9 pg (25.0-34.0); Mean Corpuscular Hgb Conc 34.3 g/dL (32.0-36.0); Mean Platelet Volume 8.8 fL (9.4-12.4); Monocytes % (auto) 7.3 %; Neutrophils # (auto) 8.28 K/uL (1.4-6.5); Neutrophils % (auto) 86.9 %; Platelet Count 385 K/uL (130-400); Red Blood Count 5.18 M/uL (4.63-6.08); White Blood Count 9.54 K/ul (4.8-10.8)
--- NOTE | 2022-04-16 20:27 | History & Physical Report ---
Date of Service April 16, 2022 Assessment & Plan (1) Suicidal ideation: Plan: Patient presents with reported suicidal ideation although he would not admit this to me He has a long history of inpatient psychiatric stays and psychiatry at this facility is very familiar with him He was admitted to the [facility] although this was on a voluntary basis prior to his recent admission here from 04/07-03/2029. He did not want to return to the [facility] and was deemed stable for discharge to home by psychiatry -Admit to medical/surgical unit on COVID precautions -Consult psychiatry for further evaluation to see if needs inpatient psychiatric stay -One-on-one sitter is ordered (2) Pulmonary embolism: Plan: With a small subsegmental RML PE diagnosed on CT angiogram the chest when he presented with COVID and weakness on 04/13 -Continue Eliquis 10 Mg p.o. twice daily x21-day course and then convert to 5 Mg p.o. twice daily No acute issues at this time (3) COVID-19: Plan: Presented on 04/13 during previous admission with weakness, lower back pain, and mild cough-found to be positive for COVID-19 at that time Continues to test positive and is still within the 10-day quarantine window -Maintain isolation precautions -Given that pulse ox remains less than 94%, continue dexamethasone 6 mg p.o. once daily and finish out 2 more days of Remdesivir-he received 3 doses of Remdesivir during previous admission -Monitor for worsening (4) Dehydration: Plan: Hemoglobin is interestingly up a couple of points from previous hemoglobin this morning-up to 16, sodium mildly low at 133, and serum bicarbonate low at 19 all suggestive of mild dehydration -We will give 1 L of LR overnight -Follow CBC, BMP in the morning (5) Schizophrenia: Plan: With numerous psychiatric admissions Continue home clonazepam, temazepam Is on Abilify Maintena IM every 28 days-unclear when last dose was (6) Hematuria: Plan: With microscopic hematuria on urinalysis here On Eliquis With a history of kidney stones He is not reporting any pain and does not appear to be in any distress Follow for clinical significance Consider referral to urology if persists for cystoscopy Plan DVT prophylaxis-on Eliqu Disposition-admit to medical/surgical unit on COVID precautions History of Present Illness Chief Complaint: Suicidal ideation Primary Care Provider: NO PCP This patient is a 77-year-old male with history of schizophrenia, BPH, UTIs, who was just discharged from our hospital this afternoon after being admitted with COVID-19 and acute pulmonary embolism. He was treated with 3 days of dexamethasone and Remdesivir for a mildly low pulse ox and treated with Eliquis for his subsegmental PE. He was stable for discharge. Apparently after disch arge, he did not have his keys or wallet and was found without shoes after he wandered into the police station telling the police that he was going to kill himself. He was transported back to the emergency room. He had stable vitals with pulse ox still slightly low at 92% on room air. He was not cooperative for interview and all he would say is "I want a entry level project engineer." He refused to let me examine him but did deny cough or shortness of breath. Discussions were had with psychiatry by the ER physician and plan is to bring him in for observation overnight to discuss his disposition and potential need for inpatient psychiatric stay. Allergies Allergy/AdvReac Type Severity Reaction Status Date / Time No Known Allergies Allergy Verified 04/13/22 16:32 Home Medications Medication Instructions Recorded Confirmed Type aripiprazole 400 mg intramuscular 400 mg IM Q28D #1 ea 10/30/21 04/13/22 Rx suspension,extended release (Abilify Maintena) temazepam 15 mg capsule 15 mg PO HS PRN Sleep #15 caps 10/30/21 04/13/22 Rx clonazepam 0.5 mg tablet 0.5 mg PO DAILY PRN Anxiety 04/13/22 04/13/22 History apixaban 5 mg tablet (Eliquis) See Rx Instructions .Route 04/16/22 Rx .COMPLEX #60 tabs Past Med/Surg History Medical History Benzodiazepine abuse BPH (benign prostatic hyperplasia) Closed head injury Fall Hypertension Hypokalemia Leukocytosis (08/14/13) Rhabdomyolysis (07/21/13) Scalp laceration Schizophrenia Tobacco use disorder Surgical History No pertinent past surgical history Family History Father Cancer Mother Cancer Other No pertinent family history Denies family history of Hearing loss No family history of adverse response to anesthesia No family history of bleeding disorder Heart disease Allergies Hypertension Stroke Asthma Social History (Updated 04/16/22 @ 20:17 by Belinda Villagomez MD) Smoking Status: Former smoker Tobacco Type: Cigarettes packs per day: 1; Number of Years Since Quit: 1; Hx Alcohol Use: No Hx Substance Use: No Preferred Language: Albanian Communication Ability: Unable Visual Impairment: No Limitations Hearing Ability: Normal Package Center Supervisor Required: No Beliefs That Will Affect Care: None marital status: Single Current Living Situation: Personal Care Facility current occupational status: retired Feels Safe at Home: Yes Assistive Devices: None Review of Systems Review of Systems: Unobtainable due to cognitive status Physical Exam Constitutional: WD/WN, vitals as above Eyes: + anicteric sclerae Neck: trachea midline, no thyromegaly Respiratory: no labored breathing and no cough Chest (Breasts): Chest: normal inspection of chest Musculoskeletal: Extremities: extremities normal to inspection; no cyanosis and no clubbing Skin: no rashes, warm and dry Neurologic: moves all extremities and awake; no focal motor deficits Psychiatric: Orientation: alert, oriented to person and oriented to place; + uncooperative Eye Contact: + poor eye contact Affect: + flat affect Lymphatic: no lymphedema Results & Data Results & Data ([facility] [place]) Vital Signs (Past 12 Hours) Vital Signs Temp Pulse Pulse Resp BP BP Pulse Ox 04/16/22 20:10 123 H 20 163/77 H 94 04/16/22 16:32 36.1 C L 99 H 18 165/86 H 93 O2 Del Method 04/16/22 20:10 Room Air 04/16/22 16:32 Room Air Laboratory Results 04/16/22 04/16/22 04/16/22 Range/Units 17:14 17:14 17:03 WBC (4.8-10.8) K/ul RBC (4.63-6.08) M/uL Hgb (14.0-18.0) g/dl Hct (40.1-51.0) % MCV (80.0-100.0) fL MCH (25.0-34.0) pg MCHC (32.0-36.0) g/dL RDW Std Deviation (36.4-46.3) fL RDW Coeff of Namita (11.5-14.5) % Plt Count (130-400) K/uL MPV (9.4-12.4) fL Immature Gran % (Auto) % Neut % (Auto) % Lymph % (Auto) % [place] % (Auto) % Eos % (Auto) % Baso % (Auto) % Neut # (Auto) (1.4-6.5) K/uL Lymph # (Auto) (1.2-3.4) K/uL [place] # (Auto) (0.24-0.82) K/uL Eos # (Auto) (0-0.50) K/uL Baso # (Auto) (0-0.2) K/uL Immature Gran # (Auto) (0.00-0.02) K/uL Sodium (136-145) mmol/L Potassium (3.5-5.1) mmol/L Chloride (98-107) mmol/L Carbon Dioxide (21-32) mmol/L Anion Gap (3-11) BUN (6-23) mg/dl Creatinine (0.6-1.4) mg/dl Est Cr Clr Drug Dosing ml/min Est GFR ( Amer) ml/min Est GFR (Non-Af Amer) ml/min BUN/Creatinine Ratio (10-20) Glucose (70-99(Fasting)) mg/dl Calcium (8.5-10.1) mg/dl Total Bilirubin (0.2-1.0) mg/dl AST (13-39) U/L ALT (7-52) U/L Alkaline Phosphatase (34-104) U/L Total Protein (6.0-8.3) gm/dl Albumin (3.4-5.0) gm/dl Globulin (2.5-4.0) gm/dl Albumin/Globulin Ratio (0.9-2) TSH (0.300-4.500) uIu/ml Urine Color Yellow Urine Appearance Clear (Clear) Urine pH 7.5 (4.5-7.5) Ur Specific Tracy 1.010 (1.000-1.030) Urine Protein Negative (Negative) Urine Glucose (UA) Negative (Negative) Urine Ketones Negative (Negative) Urine Blood 2+ H (Negative) Urine Nitrite Negative (Negative) Urine Bilirubin Negative (Negative) Urine Urobilinogen Negative (Negative) Ur Leukocyte Esterase Negative (Negative) Urine WBC (Auto) 1-5 (0-5) /hpf Urine RBC (Auto) >30 H (0-4) /hpf U Hyaline Cast (Auto) 0 (0-5) /lpf U Epithel Cells (Auto) 5-10 H (0-5) /lpf Urine Bacteria (Auto) Negative (Negative) Salicylates (3.0-30) mg/dl Urine Opiates Screen Neg (Neg) Ur Methadone, Qual Neg (Neg) Acetaminophen (10-30) ug/ml Urine Barbiturates Neg (Neg) Ur Phencyclidine (PCP) Neg (Neg) U Amphetamin/Meth Scrn Neg (Neg) MDMA (Ecstasy) Screen Neg (Neg) U Benzodiazepines Scrn Neg (Neg) Ur Cocaine Metabolite Neg (Neg) U Marijuana (THC) Screen Neg (Neg) Ethyl Alcohol mg/dL < 10.0 (<10.0) mg/dl SARS-CoV-2, RNA, NAAT (NEGATIVE) 04/16/22 04/16/22 04/16/22 Range/Units 17:03 17:03 17:03 WBC (4.8-10.8) K/ul RBC (4.63-6.08) M/uL Hgb (14.0-18.0) g/dl Hct (40.1-51.0) % MCV (80.0-100.0) fL MCH (25.0-34.0) pg MCHC (32.0-36.0) g/dL RDW Std Deviation (36.4-46.3) fL RDW Coeff of Namita (11.5-14.5) % Plt Count (130-400) K/uL MPV (9.4-12.4) fL Immature Gran % (Auto) % Neut % (Auto) % Lymph % (Auto) % [place] % (Auto) % Eos % (Auto) % Baso % (Auto) % Neut # (Auto) (1.4-6.5) K/uL Lymph # (Auto) (1.2-3.4) K/uL [place] # (Auto) (0.24-0.82) K/uL Eos # (Auto) (0-0.50) K/uL Baso # (Auto) (0-0.2) K/uL Immature Gran # (Auto) (0.00-0.02) K/uL Sodium 133 L (136-145) mmol/L Potassium 3.7 (3.5-5.1) mmol/L Chloride 101 (98-107) mmol/L Carbon Dioxide 19 L (21-32) mmol/L Anion Gap 13 H (3-11) BUN 17 (6-23) mg/dl Creatinine 0.80 (0.6-1.4) mg/dl Est Cr Clr Drug Dosing 73.4 ml/min Est GFR ( Amer) 100.6 ml/min Est GFR (Non-Af Amer) 86.8 ml/min BUN/Creatinine Ratio 21.3 H (10-20) Glucose 132 H (70-99(Fasting)) mg/dl Calcium 9.1 (8.5-10.1) mg/dl Total Bilirubin 0.7 (0.2-1.0) mg/dl AST 23 (13-39) U/L ALT 45 (7-52) U/L Alkaline Phosphatase 119 H (34-104) U/L Total Protein 7.9 D (6.0-8.3) gm/dl Albumin 4.2 (3.4-5.0) gm/dl Globulin 3.7 (2.5-4.0) gm/dl Albumin/Globulin Ratio 1.1 (0.9-2) TSH 1.859 (0.300-4.500) uIu/ml Urine Color Urine Appearance (Clear) Urine pH (4.5-7.5) Ur Specific [place] (1.000-1.030) Urine Protein (Negative) Urine Glucose (UA) (Negative) Urine Ketones (Negative) Urine Blood (Negative) Urine Nitrite (Negative) Urine Bilirubin (Negative) Urine Urobilinogen (Negative) Ur Leukocyte Esterase (Negative) Urine WBC (Auto) (0-5) /hpf Urine RBC (Auto) (0-4) /hpf U Hyaline Cast (Auto) (0-5) /lpf U Epithel Cells (Auto) (0-5) /lpf Urine Bacteria (Auto) (Negative) Salicylates < 3.0 L (3.0-30) mg/dl Urine Opiates Screen (Neg) Ur Methadone, Qual (Neg) Acetaminophen < 3 L (10-30) ug/ml Urine Barbiturates (Neg) Ur Phencyclidine (PCP) (Neg) U Amphetamin/Meth Scrn (Neg) MDMA (Ecstasy) Screen (Neg) U Benzodiazepines Scrn (Neg) Ur Cocaine Metabolite (Neg) U Marijuana (THC) Screen (Neg) Ethyl Alcohol mg/dL (<10.0) mg/dl SARS-CoV-2, RNA, NAAT (NEGATIVE) 04/16/22 04/16/22 Range/Units 17:03 16:51 WBC 9.54 (4.8-10.8) K/ul RBC 5.18 (4.63-6.08) M/uL Hgb 16.0 D (14.0-18.0) g/dl Hct 46.6 (40.1-51.0) % MCV 90.0 (80.0-100.0) fL MCH 30.9 (25.0-34.0) pg MCHC 34.3 (32.0-36.0) g/dL RDW Std Deviation 43.0 (36.4-46.3) fL RDW Coeff of Namita 13.0 (11.5-14.5) % Plt Count 385 (130-400) K/uL MPV 8.8 L (9.4-12.4) fL Immature Gran % (Auto) 0.5 % Neut % (Auto) 86.9 % Lymph % (Auto) 5.2 % [place] % (Auto) 7.3 % Eos % (Auto) 0.0 % Baso % (Auto) 0.1 % Neut # (Auto) 8.28 H (1.4-6.5) K/uL Lymph # (Auto) 0.50 L (1.2-3.4) K/uL [place] # (Auto) 0.70 (0.24-0.82) K/uL Eos # (Auto) 0.00 (0-0.50) K/uL Baso # (Auto) 0.01 (0-0.2) K/uL Immature Gran # (Auto) 0.05 H (0.00-0.02) K/uL Sodium (136-145) mmol/L Potassium (3.5-5.1) mmol/L Chloride (98-107) mmol/L Carbon Dioxide (21-32) mmol/L Anion Gap (3-11) BUN (6-23) mg/dl Creatinine (0.6-1.4) mg/dl Est Cr Clr Drug Dosing ml/min Est GFR ( Amer) ml/min Est GFR (Non-Af Amer) ml/min BUN/Creatinine Ratio (10-20) Glucose (70-99(Fasting)) mg/dl Calcium (8.5-10.1) mg/dl Total Bilirubin (0.2-1.0) mg/dl AST (13-39) U/L ALT (7-52) U/L Alkaline Phosphatase (34-104) U/L Total Protein (6.0-8.3) gm/dl Albumin (3.4-5.0) gm/dl Globulin (2.5-4.0) gm/dl Albumin/Globulin Ratio (0.9-2) TSH (0.300-4.500) uIu/ml Urine Color Urine Appearance (Clear) Urine pH (4.5-7.5) Ur Specific [place] (1.000-1.030) Urine Protein (Negative) Urine Glucose (UA) (Negative) Urine Ketones (Negative) Urine Blood (Negative) Urine Nitrite (Negative) Urine Bilirubin (Negative) Urine Urobilinogen (Negative) Ur Leukocyte Esterase (Negative) Urine WBC (Auto) (0-5) /hpf Urine RBC (Auto) (0-4) /hpf U Hyaline Cast (Auto) (0-5) /lpf U Epithel Cells (Auto) (0-5) /lpf Urine Bacteria (Auto) (Negative) Salicylates (3.0-30) mg/dl Urine Opiates Screen (Neg) Ur Methadone, Qual (Neg) Acetaminophen (10-30) ug/ml Urine Barbiturates (Neg) Ur Phencyclidine (PCP) (Neg) U Amphetamin/Meth Scrn (Neg) MDMA (Ecstasy) Screen (Neg) U Benzodiazepines Scrn (Neg) Ur Cocaine Metabolite (Neg) U Marijuana (THC) Screen (Neg) Ethyl Alcohol mg/dL (<10.0) mg/dl SARS-CoV-2, RNA, NAAT POSITIVE A* (NEGATIVE) Code Status & VTE Plan VTE Prophylaxis Plan VTE Prophylaxis will be ordered: Yes PG Care Time/CCT Total # of Minutes Spent Total Time Spent with Patient: Total time spent is greater than 50% in coordination of care (as documented) at patient's floor/unit and/or counseling patient: Coding Level of Care Code 47436 Initial Inpt Care Lvl 2 Diagnoses Suicidal ideation R45.851 Pulmonary embolism I26.99 COVID-19 U07.1 Dehydration E86.0 Schizophrenia F20.9 Schizophrenia type: unspecified Hematuria R31.29 Hematuria type: other microscopic (1) Schizophrenia Schizophrenia type: unspecified Qualified Code(s): F20.9 - Schizophrenia, unspecified (2) Hematuria Hematuria type: other microscopic Qualified Code(s): R31.29 - Other microscopic hematuria
[2022-04-16] MEDS ORDERED: ONDANSETRON INJ 2 MG/ML 2 ML VIAL IV PRN (23:01)
[2022-04-16] MEDS ORDERED: LACTATED RINGER'S 1,000 ML IV SCH (23:01)
[2022-04-16] MEDS ORDERED: ACETAMINOPHEN 325 MG TAB PO PRN (23:01)
[2022-04-16] MEDS ORDERED: clonazePAM 0.5 MG TAB PO PRN (23:01)
[2022-04-17] MEDS: APIXABAN 5 MG TABLET PO SCH ×3 (02:04→22:19)
[2022-04-17] MEDS: dexAMETHasone 4 MG TAB PO SCH (08:30)
--- NOTE | 2022-04-17 09:58 | Psychiatric Consultation ---
Date of Consultation April 17, 2022 Impression / Recommendations Impression 77 yo male with longstanding schizophrenia, multiple hospitalizations in past 2 years with little time between visits. He is currently refusing medications but has his Abilify FARAH on board, 400 mg likely due 04/27 but will confirm. (1) Schizophrenia: Plan monitor compliance with Eliquis. he does not have capacity to refuse or to sign out AMA due to his psychosis and inability to care for self. his suicidal statements were likely more paranoia related to attempt to manipulate stay at a specific unit but should continue 1 on 1 while on med floor. should he require prn for anxiety would allow Valium 5 mg po q8 prn as he is in a supervised setting and has responded in past but hx of overuse at home and given age is a fall risk. he often requests temazepam 15 mg po qhs prn as well. Will defer to primary service if appropriate with current respiratory status. liaison to connect with CM and confirm [facility]Clear appt date/time for next injection Psych History Identifying Data 77 yo male with schizophrenia, well known to me from multiple inpatient psychiatric admissions/ED courses, was readmit a few hours after discharge from the medical floor where he was being treated for 04/13/22-04/16/22 for small PE and COVID+. Chief Complaint boarding on medical floor as remains positive for COVID and cannot be admitted to a psych until after 04/22. History of Present Illness patient was seen in respiratory isolation in full PPE and was uncooperative with assessment, repeatedly stating that he's not sick, doesn't need medication (including anticoagulants) and that he just wants an patent prosecution attorney. He will not elaborate and then ultimately refused for a list to be provided. He understands that he is here voluntarily. He arrived to the ED at direction of police as made suicidal statements there when he could not be let into his apartment in a timely manner but also talked of most of his longstanding delusions like being injected with botox in his muscles or getting the chip in his head removed. as per Dr. Silva's consult on 04/15/22: Met with Jamie via telemedicine due to his COVID+ status. Jamie is well to known the the psychiatry service from previous admissions to [facility] as well as consultations and recalls me from this interactions. He has chronic paranoid delusions and chronic command AH with thoughts of harming himself which ebb and flow over time. He has a history of benzodiazepine use disorder and frequently cites high dose benzodiazepines as being the only medication which will treat his auditory hallucinations and insomnia has became irritable when limits are set around this in the past. He was admitted in the [facility] last week for increased SI and command AH but tells me this was "an accident I was going to [place] I can't explain". States he was going to [place] to "get the chips out of my ears and off the top of my head". He got more weak at the [facility] and so they sent him to [facility]. He now knows he has COVID. He states "I feel good, I just can't move my legs well" stating "I think I was injected with botox" and wonders "if my girlfriend" did this and thinks maybe she did so while he was at [facility] stating "she pays people". However, he denies feeling unsafe, states he doesn't know her name. States he's been taking medications including Abilify FARAH and has been adherent but cannot recall when he last got it but knows he has an appointment on Apr 27 for his next injection. He denies any thoughts of SI and HI. He endorses auditory hallucinations telling him "business stuff". Yesterday he told the hospitalist he did not want to return to [facility] and wanted her to look into the process of having him go to [facility]. I discussed with him that this could be a possibility but due to COVID + status he would need to remain here in isolation until he was no longer infectious first. He considered this stating then "I would like be discharged home" and states he feels safe there. He states he isn't worried about walking at home because "they have elevators". He feels the weakness has resolved "I feel good". Allergies Allergy/AdvReac Type Severity Reaction Status Date / Time No Known Allergies Allergy Verified 04/13/22 16:32 Home Medications Medication Instructions Recorded Confirmed Type aripiprazole 400 mg intramuscular 400 mg IM Q28D #1 ea 10/30/21 04/13/22 Rx suspension,extended release (Abiliflouie Maintena) temazepam 15 mg capsule 15 mg PO HS PRN Sleep #15 caps 10/30/21 04/13/22 Rx clonazepam 0.5 mg tablet 0.5 mg PO DAILY PRN Anxiety 04/13/22 04/13/22 History apixaban 5 mg tablet (Eliquis) See Rx Instructions .Route 04/16/22 Rx .COMPLEX #60 tabs Personal History Born In: [place], but moved frequently Beliefs That Will Affect Care: None Patient History Medical History Benzodiazepine abuse BPH (benign prostatic hyperplasia) Closed head injury Fall Hypertension Hypokalemia Leukocytosis (08/14/13) Rhabdomyolysis (07/21/13) Scalp laceration Schizophrenia Tobacco use disorder Surgical History No pertinent past surgical history Family History Father Cancer Mother Cancer Other No pertinent family history Denies family history of Hearing loss No family history of adverse response to anesthesia No family history of bleeding disorder Heart disease Allergies Hypertension Stroke Asthma Social History (Updated 04/17/22 @ 10:00 by Sugey Alfredo MD) Smoking Status: Never smoker Tobacco Type: Cigarettes packs per day: 1; Number of Years Since Quit: 1; Hx Alcohol Use: No Hx Substance Use: No Preferred Language: Armenian Communication Ability: Unable Visual Impairment: No Limitations Hearing Ability: Normal Aquarium Specialist Required: No Beliefs That Will Affect Care: None marital status: Single Current Living Situation: Alone current occupational status: retired Feels Safe at Home: Yes Assistive Devices: None Physical Exam Psychiatric: flat affect, no eye contact, speech is non spontaneous, paranoid but not restless, no evidence of catatonia, perseverates on delusion, internally preoccupied. Vital Signs (Past 24 Hours): Last Vital Signs Temp 37.2 C 04/17/22 07:36 Pulse 84 04/17/22 07:36 Resp 14 04/17/22 07:36 BP 148/79 H 04/17/22 07:36 Pulse Ox 93 04/17/22 07:36 O2 Del Method 04/17/22 07:36 Review of Systems Unobtainable due to mental health condition Results & Data (PSY) Laboratory Results 04/16/22 04/16/22 04/16/22 Range/Units 17:14 17:14 17:03 WBC (4.8-10.8) K/ul RBC (4.63-6.08) M/uL Hgb (14.0-18.0) g/dl Hct (40.1-51.0) % MCV (80.0-100.0) fL MCH (25.0-34.0) pg MCHC (32.0-36.0) g/dL RDW Std Deviation (36.4-46.3) fL RDW Coeff of Namita (11.5-14.5) % Plt Count (130-400) K/uL MPV (9.4-12.4) fL Immature Gran % (Auto) % Neut % (Auto) % Lymph % (Auto) % [place] % (Auto) % Eos % (Auto) % Baso % (Auto) % Neut # (Auto) (1.4-6.5) K/uL Lymph # (Auto) (1.2-3.4) K/uL [place] # (Auto) (0.24-0.82) K/uL Eos # (Auto) (0-0.50) K/uL Baso # (Auto) (0-0.2) K/uL Immature Gran # (Auto) (0.00-0.02) K/uL Sodium (136-145) mmol/L Potassium (3.5-5.1) mmol/L Chloride (98-107) mmol/L Carbon Dioxide (21-32) mmol/L Anion Gap (3-11) BUN (6-23) mg/dl Creatinine (0.6-1.4) mg/dl Est Cr Clr Drug Dosing ml/min Est GFR ( Amer) ml/min Est GFR (Non-Af Amer) ml/min BUN/Creatinine Ratio (10-20) Glucose (70-99(Fasting)) mg/dl Calcium (8.5-10.1) mg/dl Total Bilirubin (0.2-1.0) mg/dl AST (13-39) U/L ALT (7-52) U/L Alkaline Phosphatase (34-104) U/L Total Protein (6.0-8.3) gm/dl Albumin (3.4-5.0) gm/dl Globulin (2.5-4.0) gm/dl Albumin/Globulin Ratio (0.9-2) TSH (0.300-4.500) uIu/ml Urine Color Yellow Urine Appearance Clear (Clear) Urine pH 7.5 (4.5-7.5) Ur Specific [place] 1.010 (1.000-1.030) Urine Protein Negative (Negative) Urine Glucose (UA) Negative (Negative) Urine Ketones Negative (Negative) Urine Blood 2+ H (Negative) Urine Nitrite Negative (Negative) Urine Bilirubin Negative (Negative) Urine Urobilinogen Negative (Negative) Ur Leukocyte Esterase Negative (Negative) Urine WBC (Auto) 1-5 (0-5) /hpf Urine RBC (Auto) >30 H (0-4) /hpf U Hyaline Cast (Auto) 0 (0-5) /lpf U Epithel Cells (Auto) 5-10 H (0-5) /lpf Urine Bacteria (Auto) Negative (Negative) Salicylates (3.0-30) mg/dl Urine Opiates Screen Neg (Neg) Ur Methadone, Qual Neg (Neg) Acetaminophen (10-30) ug/ml Urine Barbiturates Neg (Neg) Ur Phencyclidine (PCP) Neg (Neg) U Amphetamin/Meth Scrn Neg (Neg) MDMA (Ecstasy) Screen Neg (Neg) U Benzodiazepines Scrn Neg (Neg) Ur Cocaine Metabolite Neg (Neg) U Marijuana (THC) Screen Neg (Neg) Ethyl Alcohol mg/dL < 10.0 (<10.0) mg/dl SARS-CoV-2, RNA, NAAT (NEGATIVE) 04/16/22 04/16/22 04/16/22 Range/Units 17:03 17:03 17:03 WBC (4.8-10.8) K/ul RBC (4.63-6.08) M/uL Hgb (14.0-18.0) g/dl Hct (40.1-51.0) % MCV (80.0-100.0) fL MCH (25.0-34.0) pg MCHC (32.0-36.0) g/dL RDW Std Deviation (36.4-46.3) fL RDW Coeff of Namita (11.5-14.5) % Plt Count (130-400) K/uL MPV (9.4-12.4) fL Immature Gran % (Auto) % Neut % (Auto) % Lymph % (Auto) % [place] % (Auto) % Eos % (Auto) % Baso % (Auto) % Neut # (Auto) (1.4-6.5) K/uL Lymph # (Auto) (1.2-3.4) K/uL [place] # (Auto) (0.24-0.82) K/uL Eos # (Auto) (0-0.50) K/uL Baso # (Auto) (0-0.2) K/uL Immature Gran # (Auto) (0.00-0.02) K/uL Sodium 133 L (136-145) mmol/L Potassium 3.7 (3.5-5.1) mmol/L Chloride 101 (98-107) mmol/L Carbon Dioxide 19 L (21-32) mmol/L Anion Gap 13 H (3-11) BUN 17 (6-23) mg/dl Creatinine 0.80 (0.6-1.4) mg/dl Est Cr Clr Drug Dosing 73.4 ml/min Est GFR ( Amer) 100.6 ml/min Est GFR (Non-Af Amer) 86.8 ml/min BUN/Creatinine Ratio 21.3 H (10-20) Glucose 132 H (70-99(Fasting)) mg/dl Calcium 9.1 (8.5-10.1) mg/dl Total Bilirubin 0.7 (0.2-1.0) mg/dl AST 23 (13-39) U/L ALT 45 (7-52) U/L Alkaline Phosphatase 119 H (34-104) U/L Total Protein 7.9 D (6.0-8.3) gm/dl Albumin 4.2 (3.4-5.0) gm/dl Globulin 3.7 (2.5-4.0) gm/dl Albumin/Globulin Ratio 1.1 (0.9-2) TSH 1.859 (0.300-4.500) uIu/ml Urine Color Urine Appearance (Clear) Urine pH (4.5-7.5) Ur Specific [place] (1.000-1.030) Urine Protein (Negative) Urine Glucose (UA) (Negative) Urine Ketones (Negative) Urine Blood (Negative) Urine Nitrite (Negative) Urine Bilirubin (Negative) Urine Urobilinogen (Negative) Ur Leukocyte Esterase (Negative) Urine WBC (Auto) (0-5) /hpf Urine RBC (Auto) (0-4) /hpf U Hyaline Cast (Auto) (0-5) /lpf U Epithel Cells (Auto) (0-5) /lpf Urine Bacteria (Auto) (Negative) Salicylates < 3.0 L (3.0-30) mg/dl Urine Opiates Screen (Neg) Ur Methadone, Qual (Neg) Acetaminophen < 3 L (10-30) ug/ml Urine Barbiturates (Neg) Ur Phencyclidine (PCP) (Neg) U Amphetamin/Meth Scrn (Neg) MDMA (Ecstasy) Screen (Neg) U Benzodiazepines Scrn (Neg) Ur Cocaine Metabolite (Neg) U Marijuana (THC) Screen (Neg) Ethyl Alcohol mg/dL (<10.0) mg/dl SARS-CoV-2, RNA, NAAT (NEGATIVE) 04/16/22 04/16/22 Range/Units 17:03 16:51 WBC 9.54 (4.8-10.8) K/ul RBC 5.18 (4.63-6.08) M/uL Hgb 16.0 D (14.0-18.0) g/dl Hct 46.6 (40.1-51.0) % MCV 90.0 (80.0-100.0) fL MCH 30.9 (25.0-34.0) pg MCHC 34.3 (32.0-36.0) g/dL RDW Std Deviation 43.0 (36.4-46.3) fL RDW Coeff of Namita 13.0 (11.5-14.5) % Plt Count 385 (130-400) K/uL MPV 8.8 L (9.4-12.4) fL Immature Gran % (Auto) 0.5 % Neut % (Auto) 86.9 % Lymph % (Auto) 5.2 % [place] % (Auto) 7.3 % Eos % (Auto) 0.0 % Baso % (Auto) 0.1 % Neut # (Auto) 8.28 H (1.4-6.5) K/uL Lymph # (Auto) 0.50 L (1.2-3.4) K/uL [place] # (Auto) 0.70 (0.24-0.82) K/uL Eos # (Auto) 0.00 (0-0.50) K/uL Baso # (Auto) 0.01 (0-0.2) K/uL Immature Gran # (Auto) 0.05 H (0.00-0.02) K/uL Sodium (136-145) mmol/L Potassium (3.5-5.1) mmol/L Chloride (98-107) mmol/L Carbon Dioxide (21-32) mmol/L Anion Gap (3-11) BUN (6-23) mg/dl Creatinine (0.6-1.4) mg/dl Est Cr Clr Drug Dosing ml/min Est GFR ( Amer) ml/min Est GFR (Non-Af Amer) ml/min BUN/Creatinine Ratio (10-20) Glucose (70-99(Fasting)) mg/dl Calcium (8.5-10.1) mg/dl Total Bilirubin (0.2-1.0) mg/dl AST (13-39) U/L ALT (7-52) U/L Alkaline Phosphatase (34-104) U/L Total Protein (6.0-8.3) gm/dl Albumin (3.4-5.0) gm/dl Globulin (2.5-4.0) gm/dl Albumin/Globulin Ratio (0.9-2) TSH (0.300-4.500) uIu/ml Urine Color Urine Appearance (Clear) Urine pH (4.5-7.5) Ur Specific [place] (1.000-1.030) Urine Protein (Negative) Urine Glucose (UA) (Negative) Urine Ketones (Negative) Urine Blood (Negative) Urine Nitrite (Negative) Urine Bilirubin (Negative) Urine Urobilinogen (Negative) Ur Leukocyte Esterase (Negative) Urine WBC (Auto) (0-5) /hpf Urine RBC (Auto) (0-4) /hpf U Hyaline Cast (Auto) (0-5) /lpf U Epithel Cells (Auto) (0-5) /lpf Urine Bacteria (Auto) (Negative) Salicylates (3.0-30) mg/dl Urine Opiates Screen (Neg) Ur Methadone, Qual (Neg) Acetaminophen (10-30) ug/ml Urine Barbiturates (Neg) Ur Phencyclidine (PCP) (Neg) U Amphetamin/Meth Scrn (Neg) MDMA (Ecstasy) Screen (Neg) U Benzodiazepines Scrn (Neg) Ur Cocaine Metabolite (Neg) U Marijuana (THC) Screen (Neg) Ethyl Alcohol mg/dL (<10.0) mg/dl SARS-CoV-2, RNA, NAAT POSITIVE A* (NEGATIVE) Medications Administered Apixaban (Apixaban 5 Mg Tablet) 10 mg PO BID [facility] Stop: 05/06/22 23:00 Last Admin: 04/17/22 08:30 Dose: Not Given Documented By: Admin: 04/17/22 02:04 Dose: Not Given Documented By: GABRIELA Dexamethasone (Dexamethasone 4 Mg Tab) 4 mg PO QAM [facility] Stop: 05/17/22 08:59 Last Admin: 04/17/22 08:30 Dose: Not Given Documented By: APARNA Coding Level of Care Code 16388 [facility] Intl Hosp Care Lvl 2 Diagnoses Schizophrenia F20.9
[2022-04-17] MEDS: REMDESIVIR 100 MG in SODIUM CHLORIDE 0.9% 230 ML IV SCH (12:01)
--- NOTE | 2022-04-17 12:51 | Hospitalist Progress Note ---
Date of Service April 17, 2022 Assessment & Plan (1) Suicidal ideation: Plan: The patient was cleared for discharge to home yesterday by psychiatry. However after he could not get into his apartment after discharge he went to the local police station and stated he was going to kill himself at which point he was brought back to [facility] and subsequently readmitted. Psychiatry has been reconsulted and a one-to-one sitter is ordered -One-on-one sitter is ordered (2) Pulmonary embolism: Plan: Recently diagnosed. Possibly related to hypercoagulability from recent COVID in fection. He refuses Eliquis or Lovenox treatment at this time. (3) COVID-19: Plan: Presented on 04/13 during previous admission with weakness, lower back pain, and mild cough-found to be positive for COVID-19 at that time. Continues to test positive. This will interfere with eventual placement. He does not appear to have any viral pneumonia and is nonhypoxic on room air. He will complete his course of dexamethasone and remdesivir. (4) Dehydration: Plan: Resolved with IV fluids. (5) Schizophrenia: Plan: Chronic. Numerous psychiatric admissions. Psychiatry consultation pending (6) Hematuria: Plan: microscopic. May have been caused by systemic anticoagulation. No gross hematuria. Will follow Plan Disposition: To be determined Admission and Anticipated Discharge Date Admission Date: April 16, 2022 Subjective The patient was discharged to home yesterday, April 16, but he was unable to enter his apartment and he apparently walked to the police station and told them he was considering killing himself and he was subsequently readmitted to [facility]. He is currently stable but is refusing all medications including Eliquis and Lovenox therapy for his recently diagnosed pulmonary embolism. Psychiatry consultation pending. He is COVID-positive but asymptomatic in that respect. Placement is going to be an issue here. Review of Systems Review of Systems: The patient will not comply with review of systems questioning Physical Exam Physical Exam: General-alert. He seems to be oriented but will not answer questions HEENT-head atraumatic and normocephalic, pupils equal and reactive to light, extraocular muscles intact Neck-no lymphadenopathy or thyromegaly, trachea midline Chest-clear to auscultation percussion. No rales wheezing or rhonchi Cardiac-regular rate and rhythm, normal S1 and S2, no murmurs Abdomen-normal bowel sounds, nontender, no hepatosplenomegaly Extremities-no cyanosis, clubbing, or edema Neuro-cranial nerves II through XII intact, motor and sensory function within normal limits, strength symmetrical , no focal deficits Psych-he seems somewhat paranoid. He is alert. He refuses to answer questions. Results & Data Results & Data ([facility]) Vital Signs (Past 12 Hours) Vital Signs Temp Pulse Resp BP Pulse Ox O2 Del Method 04/17/22 07:36 37.2 C 84 14 148/79 H 93 Room Air Laboratory Results 04/16/22 17:03 04/16/22 17:03 PG Care Time/CCT Total # of Minutes Spent Total Time Spent with Patient: Total time spent is greater than 50% in coordination of care (as documented) at patient's floor/unit and/or counseling patient: Coding Level of Care Code 67228 Subseq Hosp Care Lvl 3 Diagnoses Suicidal ideation R45.851 Pulmonary embolism I26.99 COVID-19 U07.1 Dehydration E86.0 Schizophrenia F20.9 Schizophrenia type: unspecified Hematuria R31.29 Hematuria type: other microscopic (1) Schizophrenia Schizophrenia type: unspecified Qualified Code(s): F20.9 - Schizophrenia, unspecified (2) Hematuria Hematuria type: other microscopic Qualified Code(s): R31.29 - Other sheri roscopic hematuria
--- NOTE | 2022-04-18 06:39 | Psychiatric Progress Note ---
Date of Service April 18, 2022 Impression / Recommendations Impression 77 yo male with longstanding schizophrenia, multiple hospitalizations in past 2 years with little time between visits. He is currently refusing medications but has his Abilify FARAH on board, 400 mg likely due 04/27 but will confirm. 04/18/22: unchanged (1) Schizophrenia: Plan 04/18/22: 306 conversion paperwork filed, patient is an inpatient commitment to [facility] and cannot leave the hospital AMA. continue 1-on-1 and COVID isolation. 04/17/22: monitor compliance with Eliquis. he does not have capacity to refuse or to sign out AMA due to his psychosis and inability to care for self. his suicidal statements were likely more paranoia related to attempt to manipulate stay at a specific unit but should continue 1 on 1 while on med floor. should he require prn for anxiety would allow Valium 5 mg po q8 prn as he is in a supervised setting and has responded in past but hx of overuse at home and given age is a fall risk. he often requests temazepam 15 mg po qhs prn as well. Will defer to primary service if appropriate with current respiratory status. liaison to connect with CM and confirm CenClear appt date/time for next injection Interval History Identifying Information 77 yo male with schizophrenia, well known to me from multiple inpatient psychiatric admissions/ED courses, was readmit a few hours after discharge from the medical floor where he was being treated for 04/13/22-04/16/22 for small PE and COVID+. Chief Complaint seen in COVID isolation in full PPE Review of Systems Notes uncooperative Subjective Subjective Patient was seen & assessed and interval progress reviewed with treatment team. Patient remains guarded but without agitation on the medical floor. Confirmed with [facility] that patient is on a 304 outpatient commitment. Physical Exam Psychiatric Orientation: alert; + uncooperative Eye Contact: + poor eye contact selective mutism Affect: + flat affect Vital Signs (Past 24 Hours) Last Vital Signs Temp 37.1 C 04/17/22 21:49 Pulse 80 04/17/22 21:49 Resp 16 04/17/22 21:49 BP 120/72 04/17/22 21:49 Pulse Ox 93 04/17/22 21:49 O2 Del Method 04/17/22 21:49 Results & Data ([facility]) Current Inpatient Medications Current Inpatient Medications: Current Inpatient Medications Acetaminophen (Acetaminophen 325 Mg Tab) 650 mg PO Q4H PRN PRN Reason: pain/fever Stop: 05/16/22 23:00 Apixaban (Apixaban 5 Mg Tablet) 10 mg PO BID [facility] Stop: 05/06/22 23:00 Last Admin: 04/17/22 22:19 Dose: Not Given Clonazepam (Clonazepam 0.5 Mg Tab) 0.5 mg PO DAILY PRN PRN Reason: Anxiety Stop: 05/16/22 23:00 Dexamethasone (Dexamethasone 4 Mg Tab) 4 mg PO QAM [facility] Stop: 05/17/22 08:59 Last Admin: 04/17/22 08:30 Dose: Not Given Remdesivir 100 mg/ Sodium (Chloride) 250 mls @ 250 mls/hr IV DAILY@1200 [facility] Stop: 04/18/22 12:59 Last Admin: 04/17/22 12:01 Dose: Not Given Ondansetron HCl (Ondansetron Inj 2 Mg/Ml 2 Ml Vial) 4 mg IV Q6H PRN PRN Reason: Nausea Stop: 05/16/22 23:00 Temazepam (Temazepam 15 Mg Capsule) 15 mg PO HS PRN PRN Reason: Sleep Stop: 05/16/22 23:00
[2022-04-18] MEDS: dexAMETHasone 4 MG TAB PO SCH (10:23)
[2022-04-18] MEDS: APIXABAN 5 MG TABLET PO SCH ×2 (10:23→20:01)
[2022-04-18] MEDS: REMDESIVIR 100 MG in SODIUM CHLORIDE 0.9% 230 ML IV SCH (11:58)
--- NOTE | 2022-04-18 12:31 | Discharge Summary ---
Date of Service April 18, 2022 Admission HPI Per Admitting Provider This patient is a 77-year-old male with history of schizophrenia, BPH, UTIs, who was just discharged from our hospital this afternoon after being admitted with COVID-19 and acute pulmonary embolism. He was treated with 3 days of dexamethasone and Remdesivir for a mildly low pulse ox and treated with Eliquis for his subsegmental PE. He was stable for discharge. Apparently after discharge, he did not have his keys or wallet and was found without shoes after he wandered into the police station telling the police that he was going to kill himself. He was transported back to the emergency room. He had stable vitals with pulse ox still slightly low at 92% on room air. He was not cooperative for interview and all he would say is "I want a camera mechanic." He refused to let me examine him but did deny cough or shortness of breath. Discussions were had with psychiatry by the ER physician and plan is to bring him in for observation overnight to discuss his disposition and potential need for inpatient psychiatric stay. Principal Diagnosis Suicidal ideation, COVID positivity Discharge Exam General-alert and oriented x3, no fevers, no chills HEENT-head atraumatic and normocephalic, pupils equal and reactive to light, extraocular muscles intact Neck-no lymphadenopathy or thyromegaly, trachea midline Chest-clear to auscultation percussion. No rales wheezing or rhonchi Cardiac-regular rate and rhythm, normal S1 and S2, no murmurs Abdomen-normal bowel sounds, nontender, no hepatosplenomegaly Extremities-no cyanosis, clubbing, or edema Neuro-cranial nerves II through XII intact, motor and sensory function within normal limits, strength symmetrical , no focal deficits Psych-flat affect. Uncooperative Discharge Data Allergies Allergy/AdvReac Type Severity Reaction Status Date / Time No Known Allergies Allergy Verified 04/13/22 16:32 Consultations 04/16/22 19:03 ED Decision to Admit Stat 04/16/22 20:20 Consult Psychiatry Routine 04/17/22 06:10 Consult Behavioral Health Liaison Routine Hospital Course (1) Suicidal ideation: The patient was cleared for discharge to home on 04/16 by psychiatry. However after he could not get into his apartment after discharge he went to the local police station and stated he was going to kill himself at which point he was brought back to [facility] and subsequently readmitted. Psychiatry has been reconsulted and a one-to-one sitter is ordered . He currently denies any suicidal ideation (2) Pulmonary embolism: Recently diagnosed. Possibly related to hypercoagulability from recent COVID infection. He refuses Eliquis or Lovenox treatment at this time. (3) COVID-19: Presented on 04/13 during previous admission with weakness, lower back pain, and mild cough-found to be positive for COVID-19 at that time. Continues to test positive. This will interfere with eventual placement. He does not appear to have any viral pneumonia and is nonhypoxic on room air. He will complete his course of dexamethasone and remdesivir during this hospital stay (4) Dehydration: Resolved with IV fluids. (5) Schizophrenia: Chronic. Numerous psychiatric admissions. Psychiatry consultation appreciated (6) Hematuria: microscopic. May have been caused by systemic anticoagulation. No gross hematuria. Will follow Plan Disposition: home today. Shruti guadalupe will be notified Total Time Total Time Spent Total Time Spent (In Minutes): 35 minutes Discharge Plan Discharge Items Patient Disposition: Home - Self-Care Reason For Visit: SUICIDAL IDEATIONS, COVID Discharge Diagnosis: Transient suicidal ideation which may have just been a means to get hospitalized. COVID positivity Activity: Resume your previous activity Activity Comment: Self quarantine for 7 days from the date of original COVID positive test Non-emergency contact: Primary Care Provider Call non-emergency contact if: you have any medication questions and your symptoms worsen Follow-up/Referrals: Aleksandra Purdy [Outside] - 05/14/22 3:40 pm Shruti Guadalupe [Outside] (Lorna (Insurance Territory Manager) ) PCP,NO [Primary Care Provider] - Diet: Regular Addtl Attending Provider Instructions: Recommend follow-up with psychiatry as an outpatient. Self quarantine for 7 days from original positive COVID test Pending Studies at Discharge: No Stand-Alone Forms: [facility], Smoking Cessation Medications and DC Order Prescriptions: Continued clonazepam 0.5 mg tablet 0.5 mg PO DAILY PRN (Reason: Anxiety) Eliquis 5 mg Tablet See Rx Instructions .ROUTE .COMPLEX Qty: 60 0RF Rx Instructions: 10 mg twice daily for 20 more days then decrease dosage to 5 mg twice a day going forward temazepam 15 mg capsule 15 mg PO HS PRN (Reason: Sleep) Qty: 15 0RF Abilify Maintena 400 mg suspension,extended rel recon 400 mg IM Q28D Qty: 1 0RF Discharge Orders: Discharge Order (Routine); Ordered 04/18/22 Ordered By: Crispin Madison Admission Data Admit Date/Time: 04/16/22 19:15 Attending Provider: Crispin Madison Admit Provider: Belinda Villagomez Primary Care Provider: PCP,NO Other Providers: Rosa Silva ; Sugey Alfredo ; Lena Corey ; Belinda Villagomez Other Interventions: PSY 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
--- NOTE | 2022-04-18 12:47 | Hospitalist Progress Note ---
Date of Service April 18, 2022 Assessment & Plan (1) Suicidal ideation: Plan: The patient was cleared for discharge to home on 04/16 by psychiatry. However after he could not get into his apartment after discharge he went to the local police station and stated he was going to kill himself at which point he was brought back to [facility] and subsequently readmitted. Psychiatry has been reconsulted and a one-to-one sitter is ordered . Psychiatry is arranging inpatient psychiatric treatment. (2) Pulmonary embolism: Plan: Recently diagnosed. Possibly related to hypercoagulability from recent COVID infection. He refuses Eliquis or Lovenox treatment at this time. (3) COVID-19: Plan: Presented on 04/13 during previous admission with weakness, lower back pain, and mild cough-found to be positive for COVID-19 at that time. Continues to test positive. This will interfere with eventual placement. He does not appear to have any viral pneumonia and is nonhypoxic on room air. He will complete his c ourse of dexamethasone and remdesivir during this hospital stay (4) Dehydration: Plan: Resolved with IV fluids. (5) Schizophrenia: Plan: Chronic. Numerous psychiatric admissions. Psychiatry consultation appreciated (6) Hematuria: Plan: microscopic. May have been caused by systemic anticoagulation. No gross hematuria. Will follow Plan Disposition: He will require inpatient psychiatric hospitalization. Psychiatry service is arranging. Admission and Anticipated Discharge Date Admission Date: April 16, 2022 Subjective No significant change. Home discharge has been canceled since psychiatry states he will need inpatient treatment Review of Systems Review of Systems: The patient will not comply with questioning regarding review of systems Physical Exam Physical Exam: General-alert . Uncooperative . No fevers, no chills HEENT-head atraumatic and normocephalic, pupils equal and reactive to light, extraocular muscles intact Neck-no lymphadenopathy or thyromegaly, trachea midline Chest-clear to auscultation percussion. No rales wheezing or rhonchi Cardiac-regular rate and rhythm, normal S1 and S2, no murmurs Abdomen-normal bowel sounds, nontender, no hepatosplenomegaly Extremities-no cyanosis, clubbing, or edema Neuro-cranial nerves II through XII intact, motor and sensory function within normal limits, strength symmetrical , no focal deficits Psych-flat affect. Uncooperative Results & Data Results & Data ([facility]) Vital Signs (Past 12 Hours) Vital Signs Temp Pulse Resp BP Pulse Ox O2 Del Method 04/18/22 07:32 37.2 C 92 H 12 118/71 95 Room Air Laboratory Results 04/16/22 17:03 04/16/22 17:03 PG Care Time/CCT Total # of Minutes Spent Total Time Spent with Patient: Total time spent is greater than 50% in coordination of care (as documented) at patient's floor/unit and/or counseling patient: Coding Level of Care Code 40434 Subseq Hosp Care Lvl 2 Diagnoses Suicidal ideation R45.851 Pulmonary embolism I26.99 COVID-19 U07.1 Dehydration E86.0 Schizophrenia F20.9 Schizophrenia type: unspecified Hematuria R31.29 Hematuria type: other microscopic (1) Schizophrenia Schizophrenia type: unspecified Qualified Code(s): F20.9 - Schizophrenia, unspecified (2) Hematuria Hematuria type: other microscopic Qualified Code(s): R31.29 - Other microscopic hematuria
[2022-04-19] MEDS: dexAMETHasone 4 MG TAB PO SCH (08:10)
[2022-04-19] MEDS: APIXABAN 5 MG TABLET PO SCH ×2 (08:10→21:01)
--- NOTE | 2022-04-19 12:41 | Hospitalist Progress Note ---
Date of Service April 19, 2022 Assessment & Plan (1) Suicidal ideation: Plan: The patient was cleared for discharge to home on 04/16 by psychiatry. However after he could not get into his apartment after discharge he went to the local police station and stated he was going to kill himself at which point he was brought back to [facility] and subsequently readmitted. Psychiatry has been reconsulted and a one-to-one sitter is ordered . Psychiatry is arranging inpatient psychiatric treatment. (2) Pulmonary embolism: Plan: Recently diagnosed. Possibly related to hypercoagulability from recent COVID infection. He refuses Eliquis or Lovenox treatment at this time I attempted to discuss the rationale for these medications with the pt and he refused, though it is unclear if this was an informed decision given his mental status/capacity. (3) COVID-19: Plan: Presented on 04/13 during previous admission with weakness, lower back pain, and mild cough-found to be positive for COVID-19 at that time. Continues to test positive. This will interfere with eventual placement. He does not appear to have any viral pneumonia and is non-hypoxic on room air. Pt refusing treatment including remdesivir/dexamethasone (4) Dehydration: Plan: Resolved with IV fluids. (5) Schizophrenia: Plan: Chronic. Numerous psychiatric admissions. Psychiatry consultation appreciated (6) Hematuria: Plan: microscopic. May have been caused by systemic anticoagulation. No gross hematuria. Will follow Plan Disposition: He will require inpatient psychiatric hospitalization. Psychiatry service is arranging. Admission and Anticipated Discharge Date Admission Date: April 16, 2022 Supervising Physician Co-Signing Physician Notes I personally examined the patient and verified all aquino points of history and exam, discussed case, and agree with decision making with Dr Steele. Feeling okay. No complaints. Does not want to take medications. Does not want blood thinnersnotes that he does not like the Eliquis for some vague answer to do with how it affects his urine. Whenever I discussed that there are alternate blood thinners available, he does not explicitly say he will not take them, although he does imply it, but also implies that maybe he might consider taking something different. Vitals noted, in general he is awake and alert pleasant no distress. HEENT normocephalic atraumatic mucous membranes moist. Breathing unlabored no accessory muscle use good effort. Skin shows no rashes no pallor or icterus. PEfortunately overall stable, definitely would benefit from anticoagulation however, and he is refusing his Eliquis. Given that he does seem to at least fixate a little bit on a potential side effect of Eliquiswe will give trial to Xarelto. I suspect his overall refusal due to paranoia, but possibly he will try different agent. Otherwise as above Subjective No behavioral issues overnight. Pt still refusing any treatment for his pulmonary embolism and COVID. Minimally cooperative on interview today. Review of Systems Review of Systems: Per subjective Physical Exam Physical Exam: General-alert . Uncooperative . No fevers, no chills Chest-clear to auscultation. No rales wheezing or rhonchi Cardiac-regular rate and rhythm, normal S1 and S2, no murmurs Psych-flat affect. Uncooperative Results & Data Results & Data ([facility]) Vital Signs (Past 12 Hours) Vital Signs Temp Pulse Resp BP Pulse Ox O2 Del Method 04/19/22 08:10 Room Air 04/19/22 07:12 37 C 72 16 116/73 92 Resident Activity Tracking Resident Involvement: Resident Care Provided Care Provided: Adult Hospital Medicine (1) Hematuria Hematuria type: other microscopic Qualified Code(s): R31.29 - Other microscopic hematuria (2) Schizophrenia Schizophrenia type: unspecified Qualified Code(s): F20.9 - Schizophrenia, unspecified
--- NOTE | 2022-04-19 12:59 | Psychiatric Progress Note ---
Date of Service April 19, 2022 Impression / Recommendations Impression 77 yo male with longstanding schizophrenia, multiple hospitalizations in past 2 years with little time between visits. He is currently refusing medications but has his Abilify FARAH on board, 400 mg likely due 04/27 but will confirm. 04/19/22: non compliant (1) Schizophrenia: Plan 04/19/22: participated in hearing, [place], patient's 305 converted from outpatient to inpatient. Currently refusing medications, input from hospitalist is that should give Lovenox if becomes bed bound. 04/18/22: 306 conversion paperwork filed, patient is an inpatient commitment to [facility] and cannot leave the hospital AMA. continue 1-on-1 and COVID isolation. 04/17/22: monitor compliance with Eliquis. he does not have capacity to refuse or to sign out AMA due to his psychosis and inability to care for self. his suicidal statements were likely more paranoia related to attempt to manipulate stay at a specific unit but should continue 1 on 1 while on med floor. should he require prn for anxiety would allow Valium 5 mg po q8 prn as he is in a supervised setting and has responded in past but hx of overuse at home and given age is a fall risk. he often requests temazepam 15 mg po qhs prn as well. Will defer to primary service if appropriate with current respiratory status. liaison to connect with CM and confirm CenClear appt date/time for next injection Interval History Identifying Information 77 yo male with schizophrenia, well known to me from multiple inpatient p sychiatric admissions/ED courses, was readmit a few hours after discharge from the medical floor where he was being treated for 04/13/22-04/16/22 for small PE and COVID+. Chief Complaint refusing treatment Review of Systems Notes unable to obtain Subjective Subjective Interval progress reviewed. patient remains in respiratory isolation and is refusing to see liaison or participate in hearing. Physical Exam Psychiatric refused, selective mutism, flat Vital Signs (Past 24 Hours) Last Vital Signs Temp 37 C 04/19/22 07:12 Pulse 72 04/19/22 07:12 Resp 16 04/19/22 07:12 BP 116/73 04/19/22 07:12 Pulse Ox 92 04/19/22 07:12 O2 Del Method 04/19/22 08:10 Results & Data ([facility]) Current Inpatient Medications Current Inpatient Medications: Current Inpatient Medications Acetaminophen (Acetaminophen 325 Mg Tab) 650 mg PO Q4H PRN PRN Reason: pain/fever Stop: 05/16/22 23:00 Apixaban (Apixaban 5 Mg Tablet) 10 mg PO BID [facility] Stop: 05/06/22 23:00 Last Admin: 04/19/22 08:10 Dose: Not Given Clonazepam (Clonazepam 0.5 Mg Tab) 0.5 mg PO DAILY PRN PRN Reason: Anxiety Stop: 05/16/22 23:00 Dexamethasone (Dexamethasone 4 Mg Tab) 4 mg PO QAM [facility] Stop: 05/17/22 08:59 Last Admin: 04/19/22 08:10 Dose: Not Given Ondansetron HCl (Ondansetron Inj 2 Mg/Ml 2 Ml Vial) 4 mg IV Q6H PRN PRN Reason: Nausea Stop: 05/16/22 23:00 Temazepam (Temazepam 15 Mg Capsule) 15 mg PO HS PRN PRN Reason: Sleep Stop: 05/16/22 23:00
--- NOTE | 2022-04-19 22:02 | Billing Data ---
Date of Service April 19, 2022 Coding Level of Care Code 08774 Subseq Hosp Care Lvl 2
--- NOTE | 2022-04-20 06:53 | Psychiatric Progress Note ---
Date of Service April 20, 2022 Impression / Recommendations Impression 77 yo male with longstanding schizophrenia, multiple hospitalizations in past 2 years with little time between visits. He is currently refusing medications but has his Abilify FARAH on board, 400 mg given in ED 03/29/22. 04/20/22: lacks insight into condition (1) Schizophrenia: see treatment summary over the past 3 years: 03/07-05/2019 Inpt [facility] 06/15/2019 ED visit with observation 07/07/2020-07/09/2020 [facility] 09/10/2019 admit 09/12/21-09/17/2109/2019 AMS medical admit on Geodon s/p Tylenol OD, d/c 10/14/2019 to psych unit through 11/19/2019 Readmit 12/23/2019 through 01/13/2020 Readmit 02/10/2020 through 03/01/2020 06/27/21 through 07/04/2021 10/20/2021 through 10/30/2021; called within minutes of discharge with paranoia re: A[facility] 11/09/21 admit [facility] after boarding 03/09/22 boarded in ED, discharged home following psych consult 03/29/22 seen in ED after being found slumped over in car, admit taking extra Klonopin (3), CM brought his Abilify to the ED and was given injection there as had not been compliant at [facility]. Note slipped in ED while getting dressed. 04/05/22 boarded, admit [facility]. 04/13/22 admit medical floor from [facility], COVID+, small pulmonary emoblism, denied SI and was discharged home on 04/16/22. 04/16/22 readmit medically for COVID isolation for psych reasons, refusing anticoagulation. Plan 04/20/2022: continue current tx plan on med floor COVID isolation through 04/22/22. 04/19/22: participated in hearing, CM included as requested by [facility], patient's 305 converted from outpatient to inpatient. Currently refusing medications, input from hospitalist is that should give Lovenox if becomes bed bound. 04/18/22: 306 conversion paperwork filed, patient is an inpatient commitment to [facility] and cannot leave the hospital AMA. continue 1-on-1 and COVID isolation. 04/17/22: monitor compliance with Eliquis. he does not have capacity to refuse or to sign out AMA due to his psychosis and inability to care for self. his suicidal statements were likely more paranoia related to attempt to manipulate stay at a specific unit but should continue 1 on 1 while on med floor. should he require prn for anxiety would allow Valium 5 mg po q8 prn as he is in a supervised setting and has responded in past but hx of overuse at home and given age is a fall risk. he often requests temazepam 15 mg po qhs prn as well. Will defer to primary service if appropriate with current respiratory status. liaison to connect with CM and confirm CenClear appt date/time for next injection Interval History Identifying Information 77 yo male with schizophrenia, well known to me from multiple inpatient psychiatric admissions/ED courses, was readmit a few hours after discharge from the medical floor where he was being treated for 04/13/22-04/16/22 for small PE and COVID+. Chief Complaint "I want an senior attorney, I'm sorry you don't have better credentials. I want my glasses." seen in isolation in full PPE Subjective Subjective Patient was seen & assessed and interval progress reviewed with treatment team. Jamie has been difficult to engage this stay. He lies in bed and stares ahead with minimal interaction with 1-on-1 aide but he is not catatonic. I spent extensive time reviewing chart this am and do see that last injection was 03/29/22 in our ED and hx of recurrent hospitalization/ED visits over past 3 years despite community supports. Physical Exam Psychiatric Orientation: alert, oriented to person and oriented to place; + uncooperative Eye Contact: + poor eye contact Affect: + flat affect Vital Signs (Past 24 Hours) Last Vital Signs Temp 36.8 C 04/19/22 22:15 Pulse 82 04/19/22 22:15 Resp 16 04/19/22 22:15 BP 106/66 04/19/22 22:15 Pulse Ox 95 04/19/22 22:15 O2 Del Method 04/19/22 22:15 Results & Data ([facility]) Current Inpatient Medications Current Inpatient Medications: Current Inpatient Medications Acetaminophen (Acetaminophen 325 Mg Tab) 650 mg PO Q4H PRN PRN Reason: pain/fever Stop: 05/16/22 23:00 Clonazepam (Clonazepam 0.5 Mg Tab) 0.5 mg PO DAILY PRN PRN Reason: Anxiety Stop: 05/16/22 23:00 Dexamethasone (Dexamethasone 4 Mg Tab) 4 mg PO QAM [facility] Stop: 05/17/22 08:59 Last Admin: 04/19/22 08:10 Dose: Not Given Ondansetron HCl (Ondansetron Inj 2 Mg/Ml 2 Ml Vial) 4 mg IV Q6H PRN PRN Reason: Nausea Stop: 05/16/22 23:00 Rivaroxaban (Rivaroxaban 15 Mg Tab) 15 mg PO BID [facility] Stop: 05/11/22 23:59 Temazepam (Temazepam 15 Mg Capsule) 15 mg PO HS PRN PRN Reason: Sleep Stop: 05/16/22 23:00
[2022-04-20] MEDS: dexAMETHasone 4 MG TAB PO SCH (08:29)
[2022-04-20] MEDS: RIVAROXABAN 15 MG TAB PO SCH ×2 (08:29→20:17)
--- NOTE | 2022-04-20 11:48 | Hospitalist Progress Note ---
Date of Service April 20, 2022 Assessment & Plan (1) Suicidal ideation: Plan: -Readmission after being discharged on 04/16 and went to the police station thereafter stating he was going to kill himself -Readmitted thereafter and now does not have ability to leave AMA -Continues to refuse medication treatment due to paranoia -Psychiatry following and appreciate their recommendations -Currently working to find inpatient psychiatric care for patient -One-to-one sitter (2) Pulmonary embolism: Plan: -Recently diagnosed given COVID-19 infection. -Currently hemodynamically stable without hypoxia -Recommend that he use Eliquis or Lovenox for treatment, however, patient continues to refuse likely due to paranoia -Once again refused today, will continue to advocate for these medications given clear benefits (3) COVID-19: Plan: -Patient found to be positive on 04/13 on previous admission given generalized weakness and cough -Currently stable and not requiring supplemental oxygen. -Exam reassuring -Continues to refuse antivirals and steroids but may not be needed at this time (4) Dehydration: Plan: Resolved with IV fluids. (5) Schizophrenia: Plan: Chronic. Numerous psychiatric admissions. Psychiatry consultation appreciated (6) Hematuria: Plan: microscopic. May have been caused by systemic anticoagulation. No gross hematuria. Will follow Plan Diet: Regular DVT prophylaxis: Should be on Eliquis or equivalent for PE treatment, however, patient refuses treatment Disposition: TOMY isolation, searching for inpatient psychiatric care CODE STATUS: Full code Admission and Anticipated Discharge Date Admission Date: April 16, 2022 Supervising Physician Co-Signing Physician Notes I personally examined the patient and verified all aquino points of history and exam, discussed case, and agree with decision making with Dr Squires Feeling okay. No complaints. Vitals noted, in general he is awake and alert pleasant no distress. HEENT normocephalic atraumatic mucous membranes moist. Breathing unlabored no accessory muscle use good effort. Skin shows no rashes no pallor or icterus. PEfortunately overall stable, definitely would benefit from anticoagulation however, and he is refusing his anticoagulation. Otherwise as above Subjective Patient seen at bedside this morning. No acute vents reported overnight. Patient is minimally conversive and does not wish to discuss his psychiatric history at all. Continues to refuse medications for both COVID-19 and pulmonary embolism. Seems to be paranoid that the blood thinners are affecting his urine. Keeps requesting temazepam for sleep stating that he has not gotten it since he has been here. Told him it is in his medication orders and they just has to ask his nurse for it. Otherwise does not want to discuss much else today and wants to go home but informed him that he is not allowed to leave and that we are continue to look for inpatient psychiatric care. Review of Systems Review of Systems: All systems reviewed & are unremarkable except as noted in HPI & below Physical Exam Constitutional: WD/WN, vitals as above Eyes: + anicteric sclerae Neck: normal visual inspection Respiratory: normal respiratory effort, lungs clear to auscultation Cardiovascular: RRR, no murmur, no edema Gastrointestinal (Abdomen): normal bowel sounds, soft, nontender, no hepatosplenomegaly Musculoskeletal: Head/Neck/Chest: normocephalic and head atraumatic Skin: no rashes, warm and dry Neurologic: moves all extremities Psychiatric: Orientation: alert and oriented x 3 Eye Contact: + fair eye contact Affect: + flat affect Results & Data Results & Data ([facility]) Vital Signs (Past 12 Hours) Vital Signs Temp Pulse Resp BP Pulse Ox O2 Del Method 04/20/22 08:00 Room Air 04/20/22 07:13 36.8 C 78 16 123/69 93 Room Air (1) Hematuria Hematuria type: other microscopic Qualified Code(s): R31.29 - Other microscopic hematuria (2) Schizophrenia Schizophrenia type: unspecified Qualified Code(s): F20.9 - Schizophrenia, unspecified
--- NOTE | 2022-04-20 18:24 | Billing Data ---
Date of Service April 20, 2022 Coding Level of Care Code 95619 Subseq Hosp Care Lvl 1
[2022-04-20] MEDS: TEMAZEPAM 15 MG CAPSULE PO PRN (20:35)
[2022-04-21] MEDS: RIVAROXABAN 15 MG TAB PO SCH ×2 (08:03→20:04)
[2022-04-21] MEDS: dexAMETHasone 4 MG TAB PO SCH (08:03)
--- NOTE | 2022-04-21 14:14 | Psychiatric Progress Note ---
Date of Service April 21, 2022 Impression / Recommendations Impression 77 yo male with longstanding schizophrenia, multiple hospitalizations in past 2 years with little time between visits. He is currently refusing medications but has his Abilify FARAH on board, 400 mg given in ED 03/29/22. 04/21/22: Reviewed interim progress by Dr. Alfredo and agree with assessment above. Today, compared with previous telemedicine visit about 1 week ago, he is significantly more paranoid with delusions and lack of insight into need for medication for recently diagnosed PE. Agree with 305 commitment given lack of insight and judgment with delusions and paranoia. Will need inpatient psych treatment once medically stable/no longer infectious from COVID. (1) Schizophrenia: see treatment summary over the past 3 years: 03/07-05/2019 Inpt [facility] 06/15/2019 ED visit with observation 07/07/2020-07/09/2020 [facility] 09/10/2019 admit 09/12/21-09/17/2109/2019 AMS medical admit on Raul s/p Tylenol OD, d/c 10/14/2019 to psych unit through 11/19/2019 Readmit 12/23/2019 through 01/13/2020 Readmit 02/10/2020 through 03/01/2020 06/27/21 through 07/04/2021 10/20/2021 through 10/30/2021; called within minutes of discharge with paranoia re: MARILYN 11/09/21 admit [facility]ie after boarding 03/09/22 boarded in ED, discharged home following psych consult 03/29/22 seen in ED after being found slumped over in car, admit taking extra Klonopin (3), CM brought his Abilify to the ED and was given injection there as had not been compliant at [facility]. Note slipped in ED while getting dressed. 04/05/22 boarded, admit [facility]. 04/13/22 admit medical floor from [facility], COVID+, small pulmonary emoblism, denied SI and was discharged home on 04/16/22. 04/16/22 readmit medically for COVID isolation for psych reasons, refusing anticoagulation. Plan 04/21/22: continue with COVID isolation, plan for inpt psychiatric treatment once no longer infectious, could begin on 04/23/2022 04/20/2022: continue current tx plan on med floor COVID isolation through 04/22/22. 04/19/22: participated in hearing, CM included as requested by [facility], patient's 305 converted from outpatient to inpatient. Currently refusing medications, input from hospitalist is that should give Lovenox if becomes bed bound. 04/18/22: 306 conversion paperwork filed, patient is an inpatient commitment to [facility] and cannot leave the hospital AMA. continue 1-on-1 and COVID isolation. 04/17/22: monitor compliance with Eliquis. he does not have capacity to refuse or to sign out AMA due to his psychosis and inability to care for self. his suicidal statements were likely more paranoia related to attempt to manipulate stay at a specific unit but should continue 1 on 1 while on med floor. should he require prn for anxiety would allow Valium 5 mg po q8 prn as he is in a supervised setting and has responded in past but hx of overuse at home and given age is a fall risk. he often requests temazepam 15 mg po qhs prn as well. Will defer to primary service if appropriate with current respiratory status. liaison to connect with CM and confirm CenClear appt date/time for next injection Interval History Identifying Information 77 yo male with schizophrenia, well known to me from multiple inpatient psychiatric admissions/ED courses, was readmit a few hours after discharge from the medical floor where he was being treated for 04/13/22-04/16/22 for small PE and COVID+. Chief Complaint "You're not a psychiatrist, that's why I keep taking you to court". Review of Systems Notes reports stable sleep and appetite Telehealth Telehealth Options: Telephone only For the duration of the visit, provider was performing the assessment from: The same facility as the patient After establishing a telemedicine visit, patient was: Patient was verified with two unique identifiers, Patient/authorized rep acknowledged consent and understanding and Gave permission to continue telehealth session Subjective Subjective Patient was seen & assessed and interval progress reviewed with treatment team nursing and social work. States he "objects strenuously to speaking with me as you're not a psychiatrist". He is paranoia stating "that's why I brought you to court". He states "I feel fine". Recalls he got locked out of his apartment so he came back to the hospital. He denies that he has COVID stating "I don't believe it". He's been refusing his Xarelto he states he won't take this as "it's trivial". Focused on desire for temazepam. Physical Exam Psychiatric Orientation: alert and oriented x 3 Speech: normal rate/rhythm/volume of speech Mood: + irritable mood Thought Process: + looseness of associations Thought Content: + paranoid and + delusions Suicidal Thoughts: denies suicidal thoughts Homicidal Thoughts: denies homicidal thoughts Hallucinations: + auditory hallucinations; no visual hallucinations Insight: + impaired insight Judgement: + impaired judgement Vital Signs (Past 24 Hours) Last Vital Signs Temp 36.8 C 04/21/22 06:41 Pulse 74 04/21/22 06:41 Resp 18 04/21/22 06:41 BP 125/73 04/21/22 06:41 Pulse Ox 96 04/21/22 06:41 O2 Del Method 04/21/22 09:04 Results & Data ([facility]) Current Inpatient Medications Current Inpatient Medications: Current Inpatient Medications Acetaminophen (Acetaminophen 325 Mg Tab) 650 mg PO Q4H PRN PRN Reason: pain/fever Stop: 05/16/22 23:00 Clonazepam (Clonazepam 0.5 Mg Tab) 0.5 mg PO DAILY PRN PRN Reason: Anxiety Stop: 05/16/22 23:00 Dexamethasone (Dexamethasone 4 Mg Tab) 4 mg PO QAM MAG Stop: 05/17/22 08:59 Last Admin: 04/21/22 08:03 Dose: 4 mg Ondansetron HCl (Ondansetron Inj 2 Mg/Ml 2 Ml Vial) 4 mg IV Q6H PRN PRN Reason: Nausea Stop: 05/16/22 23:00 Rivaroxaban (Rivaroxaban 15 Mg Tab) 15 mg PO BID MAG Stop: 05/11/22 23:59 Last Admin: 04/21/22 08:03 Dose: Not Given Temazepam (Temazepam 15 Mg Capsule) 15 mg PO HS PRN PRN Reason: Sleep Stop: 05/16/22 23:00 Last Admin: 04/20/22 20:35 Dose: 15 mg
[2022-04-21] MEDS ORDERED: haloperidoL 0.5 MG TAB PO PRN (15:42)
[2022-04-21] MEDS ORDERED: HALOPERIDOL LACTATE 5 MG/ML 1 ML VIAL IM PRN (16:19)
[2022-04-21] MEDS ORDERED: LORazepam 2 MG/1 ML VIAL IM PRN (16:19)
[2022-04-21] MEDS ORDERED: diphenhydrAMINE 50 MG/ML VIAL IM PRN (16:19)
--- NOTE | 2022-04-21 16:24 | Hospitalist Progress Note ---
Date of Service April 21, 2022 Assessment & Plan (1) Suicidal ideation: Plan: -Readmission after being discharged on 04/16 and went to the police station thereafter stating he was going to kill himself -under involuntary committment -Continues to refuse medication treatment due to paranoia -Psychiatry following and appreciate their recommendations -Currently working to find inpatient psychiatric care for patient -One-to-one sitter, and now with more restless agitationafter discussion with psychiatryentered orders for violent or severe agitation if needed. (2) Pulmonary embolism: Plan: -Recently diagnosed given COVID-19 infection. -Currently hemodynamically stable without hypoxia -Continue to offer anticoagulation, he continues to refuse (3) COVID-19: Plan: -Patient found to be positive on 04/13 on previous admission given generalized weakness and cough -Currently stable and not requiring supplemental oxygen. -Thal clinical purposes this is a resolved issue (4) Dehydration: Plan: Resolved with IV fluids. (5) Schizophrenia: Plan: Chronic. Numerous psychiatric admissions. Psychiatry consultation appreciated for inpatient psych (6) Hematuria: Plan: microscopic. May have been caused by systemic anticoagulation. No gross hematuria. Will follow, should be followed up as an outpatient Plan Diet: Regular DVT prophylaxis: Should be on anticoagulation for PE treatment, however, patient refuses treatment Disposition: COVID isolation, searching for inpatient psychiatric care CODE STATUS: Full code Admission and Anticipated Discharge Date Admission Date: April 16, 2022 Subjective Acting moreOffers no complaints to me. The only thing he requests is a cup of coffee. Staff notes that he has been much more restless and agitated todaytried to elopewas intercepted at the elevators. Has been masturbating with staff in the room erratically. Case discussed with psychiatry. Review of Systems Review of Systems: All systems reviewed & are unremarkable except as noted in HPI & below Physical Exam 2 Physical Exam: In general he is awake and alert pleasant no distress. HEENT normocephalic atraumatic mucous membranes moist. Breathing unlabored no accessory muscle use good effort. Skin shows no rashes no pallor or icterus. Neuro without focal deficits. Results & Data Results & Data ([facility]) Vital Signs (Past 12 Hours) Vital Signs Temp Pulse Resp BP Pulse Ox O2 Del Method 04/21/22 16:15 98.4 F 95 H 20 123/74 94 Room Air 04/21/22 09:04 Room Air 04/21/22 06:41 98.2 F 74 18 125/73 96 Room Air PG Care Time/CCT Total # of Minutes Spent Total Time Spent with Patient: Total time spent is greater than 50% in coordination of care (as documented) at patient's floor/unit and/or counseling patient: Coding Level of Care Code 02198 Subseq Hosp Care Lvl 2 Diagnoses Suicidal ideation R45.851 Pulmonary embolism I26.99 COVID-19 U07.1 Dehydration E86.0 Schizophrenia F20.9 Schizophrenia type: unspecified Hematuria R31.29 Hematuria type: other microscopic (1) Schizophrenia Schizophrenia type: unspecified Qualified Code(s): F20.9 - Schizophrenia, unspecified (2) Hematuria Hematuria type: other microscopic Qualified Code(s): R31.29 - Other m icroscopic hematuria
[2022-04-21] MEDS: TEMAZEPAM 15 MG CAPSULE PO PRN (20:04)
[2022-04-22] MEDS: RIVAROXABAN 15 MG TAB PO SCH ×2 (09:54→20:07)
--- NOTE | 2022-04-22 13:55 | Hospitalist Progress Note ---
Date of Service April 22, 2022 Assessment & Plan (1) Suicidal ideation: Plan: -Readmission after being discharged on 04/16 and went to the police station thereafter stating he was going to kill himself -under involuntary commitment -Continues to refuse medication treatment due to paranoia -Psychiatry following and appreciate their recommendations -Currently working to find inpatient psychiatric care for patient -One-to-one sitter, fortunately reasonably calm today, orders are in place for severe/violent agitation (2) Pulmonary embolism: Plan: -Recently diagnosed given COVID-19 infection. -Currently hemodynamically stable without hypoxia -Continue to offer anticoagulation, he continues to refuse (3) COVID-19: Plan: -Patient found to be positive on 04/13 on previous admission given generalized weakness and cough -Currently stable and not requiring supplemental oxygen. -For all clinical purposes this is a resolved issue (4) Dehydration: Plan: Resolved with IV fluids. (5) Schizophrenia: Plan: Chronic. Numerous psychiatric admissions. Psychiatry consultation appreciated for inpatient psych (6) Hematuria: Plan: microscopic. May have been caused by systemic anticoagulation. No gross hematuria. Will follow, should be followed up as an outpatient Plan Diet: Regular DVT prophylaxis: Should be on anticoagulation for PE treatment, however, patient refuses treatment Disposition: COVID isolation, searching for inpatient psychiatric care CODE STATUS: Full code Admission and Anticipated Discharge Date Admission Date: April 16, 2022 Subjective No complaints, just requests a cup of coffee. [employer]GER notes no issues today. Review of Systems Review of Systems: All systems reviewed & are unremarkable except as noted in HPI & below Physical Exam Physical Exam: General he is awake and alert pleasant no distress. HEENT normocephalic atraumatic mucous membranes moist. Breathing unlabored no accessory muscle use good effort. Skin shows no rashes no pallor or icterus. Neuro without focal deficits. Results & Data Results & Data ([facility]) Vital Signs (Past 12 Hours) Vital Signs Temp Pulse Resp BP Pulse Ox O2 Del Method 04/22/22 07:29 98.4 F 88 18 125/80 94 Room Air PG Care Time/CCT Total # of Minutes Spent Total Time Spent with Patient: Total time spent is greater than 50% in coordination of care (as documented) at patient's floor/unit and/or counseling patient: Coding Level of Care Code 99080 Subseq Hosp Care Lvl 1 Diagnoses Suicidal ideation R45.851 Pulmonary embolism I26.99 COVID-19 U07.1 Dehydration E86.0 Schizophrenia F20.9 Schizophrenia type: unspecified Hematuria R31.29 Hematuria type: other microscopic (1) Schizophrenia Schizophrenia type: unspecified Qualified Code(s): F20.9 - Schizophrenia, unspecified (2) Hematuria Hematuria type: other microscopic Qualified Code(s): R31.29 - Other microscopic hematuria
--- NOTE | 2022-04-22 15:27 | Psychiatric Progress Note ---
Date of Service April 22, 2022 Impression / Recommendations Impression 77 yo male with longstanding schizophrenia, multiple hospitalizations in past 2 years with little time between visits. He is currently refusing medications but has his Abilify FARAH on board, 400 mg given in ED 03/29/22. 04/22/22: Continues to have acute psychosis with paranoia and impaired insight and judgment. Refusing medication for his blood clots. Will need inpatient psych treatment once medically stable/no longer infectious from COVID. (1) Schizophrenia: see treatment summary over the past 3 years: 03/07-05/2019 Inpt [facility] 06/15/2019 ED visit with observation 07/07/2020-07/09/2020 [facility] 09/10/2019 admit 09/12/21-09/17/2109/2019 AMS medical admit on Geodon s/p Tylenol OD, d/c 10/14/2019 to psych unit through 11/19/2019 Readmit 12/23/2019 through 01/13/2020 Readmit 02/10/2020 through 03/01/2020 06/27/21 through 07/04/2021 10/20/2021 through 10/30/2021; called within minutes of discharge with paranoia re: [facility] 11/09/21 admit [place] after boarding 03/09/22 boarded in ED, discharged home following psych consult 03/29/22 seen in ED after being found slumped over in car, admit taking extra Klonopin (3), CM brought his Abilify to the ED and was given injection there as had not been compliant at [facility]. Note slipped in ED while getting dressed. 04/05/22 boarded, admit [facility]. 04/13/22 admit medical floor from [facility], COVID+, small pulmonary emoblism, denied SI and was discharged home on 04/16/22. 04/16/22 readmit medically for COVID isolation for psych reasons, refusing anticoagulation. Plan 04/22/22: Continue with COVID isolation. Plan for inpt psychiatric treatment tomorrow once no longer infectious if medically stable at that time. 04/21/22: continue with COVID isolation, plan for inpt psychiatric treatment once no longer infectious, could begin on 04/23/2022 04/20/2022: continue current tx plan on med floor COVID isolation through 04/22/22. 04/19/22: participated in hearing, CM included as requested by [facility], patient's 305 converted from outpatient to inpatient. Currently refusing medications, input from hospitalist is that should give Lovenox if becomes bed bound. 04/18/22: 306 conversion paperwork filed, patient is an inpatient commitment to [facility] and cannot leave the hospital AMA. continue 1-on-1 and COVID isolation. 04/17/22: monitor compliance with Eliquis. he does not have capacity to refuse or to sign out AMA due to his psychosis and inability to care for self. his suicidal statements were likely more paranoia related to attempt to manipulate stay at a specific unit but should continue 1 on 1 while on med floor. should he require prn for anxiety would allow Valium 5 mg po q8 prn as he is in a supervised setting and has responded in past but hx of overuse at home and gi lucrecia age is a fall risk. he often requests temazepam 15 mg po qhs prn as well. Will defer to primary service if appropriate with current respiratory status. liaison to connect with CM and confirm CenClear appt date/time for next injection Interval History Identifying Information 77 yo male with schizophrenia, well known to me from multiple inpatient psychiatric admissions/ED courses, was readmit a few hours after discharge from the medical floor where he was being treated for 04/13/22-04/16/22 for small PE and COVID+. Chief Complaint "[]". Review of Systems Notes sleep and appetite are stable Telehealth Telehealth Options: Telephone only For the duration of the visit, provider was performing the assessment from: The same facility as the patient After establishing a telemedicine visit, patient was: Patient was verified with two unique identifiers, Patient/authorized rep acknowledged consent and understanding and Gave permission to continue telehealth session Total Time Spent (minutes): 10 Subjective Subjective Patient was seen & assessed and interval progress reviewed. He notes "I'm fine". He states his mood is "good". He confirms he attempted to elope yesterday afternoon noting "I tried to walk out because I wanted to leave". Today he feels like things are "fine". He feels his is fully recovered from COVID. He states he is willing to take Xarelto that "I'll try it once but if it causes that crazy peeing thing or messes up my face I won't take it". Reports appetite is "fine" and sleep is "fine". He denies any side effects from Restoril stating "oh no that's a wonderful drug". He continues to believe he has chips in his ear and believes "Nicole Agosto put them in, for a government order". He then states 'I don't want to talk anymore". Physical Exam Psychiatric Orientation: alert and oriented x 3 Speech: normal rate/rhythm/volume of speech Mood: + irritable mood Thought Process: + circumstantial thought process and + looseness of associations Thought Content: + paranoid and + delusions Suicidal Thoughts: denies suicidal thoughts Homicidal Thoughts: denies homicidal thoughts Hallucinations: + auditory hallucinations; no visual hallucinations Insight: + limited insight Judgement: + poor judgement Vital Signs (Past 24 Hours) Last Vital Signs Temp 36.9 C 04/22/22 07:29 Pulse 88 04/22/22 07:29 Resp 18 04/22/22 07:29 BP 125/80 04/22/22 07:29 Pulse Ox 94 04/22/22 07:29 O2 Del Method 04/22/22 07:29 Results & Data ([facility]) Current Inpatient Medications Current Inpatient Medications: Current Inpatient Medications Acetaminophen (Acetaminophen 325 Mg Tab) 650 mg PO Q4H PRN PRN Reason: pain/fever Stop: 05/16/22 23:00 Clonazepam (Clonazepam 0.5 Mg Tab) 0.5 mg PO DAILY PRN PRN Reason: Anxiety Stop: 05/16/22 23:00 Diphenhydramine HCl (Diphenhydramine 50 Mg/Ml Vial) 50 mg IM BID PRN PRN Reason: severe agitation Stop: 05/21/22 16:18 Haloperidol (Haloperidol 0.5 Mg Tab) 2.5 mg PO BID PRN PRN Reason: agitation/anxiety Stop: 05/21/22 15:41 Haloperidol Lactate (Haloperidol Lactate 5 Mg/Ml 1 Ml Vial) 5 mg IM Q6 PRN PRN Reason: severe agitation Stop: 05/21/22 16:18 Lorazepam (Lorazepam 2 Mg/1 Ml Vial) 2 mg IM ONE PRN; Protocol PRN Reason: severe agitation Stop: 05/21/22 16:18 Ondansetron HCl (Ondansetron Inj 2 Mg/Ml 2 Ml Vial) 4 mg IV Q6H PRN PRN Reason: Nausea Stop: 05/16/22 23:00 Rivaroxaban (Rivaroxaban 15 Mg Tab) 15 mg PO BID MAG Stop: 05/11/22 23:59 Last Admin: 04/22/22 09:54 Dose: Not Given Temazepam (Temazepam 15 Mg Capsule) 15 mg PO HS PRN PRN Reason: Sleep Stop: 05/16/22 23:00 Last Admin: 04/21/22 20:04 Dose: 15 mg
[2022-04-22] MEDS: TEMAZEPAM 15 MG CAPSULE PO PRN (19:42)
[2022-04-23] MEDS: RIVAROXABAN 15 MG TAB PO SCH (07:48)
--- NOTE | 2022-04-23 11:36 | Discharge Summary ---
Date of Service April 23, 2022 Admission HPI Per Admitting Provider This patient is a 77-year-old male with history of schizophrenia, BPH, UTIs, who was just discharged from our hospital this afternoon after being admitted with COVID-19 and acute pulmonary embolism. He was treated with 3 days of dexamethasone and Remdesivir for a mildly low pulse ox and treated with Eliquis for his subsegmental PE. He was stable for discharge. Apparently after discharge, he did not have his keys or wallet and was found without shoes after he wandered into the police station telling the police that he was going to kill himself. He was transported back to the emergency room. He had stable vitals with pulse ox still slightly low at 92% on room air. He was not cooperative for interview and all he would say is "I want a drug safety assistant." He refused to let me examine him but did deny cough or shortness of breath. Discussions were had with psychiatry by the ER physician and plan is to bring him in for observation overnight to discuss his disposition and potential need for inpatient psychiatri c stay. Admission Exam Per Admitting Provider Constitutional: WD/WN, vitals as above Eyes: + anicteric sclerae Neck: trachea midline, no thyromegaly Respiratory: no labored breathing and no cough Chest (Breasts): Chest: normal inspection of chest Musculoskeletal: Extremities: extremities normal to inspection; no cyanosis and no clubbing Skin: no rashes, warm and dry Neurologic: moves all extremities and awake; no focal motor deficits Psychiatric: Orientation: alert, oriented to person and oriented to place; + uncooperative Eye Contact: + poor eye contact Affect: + flat affect Lymphatic: no lymphedema Principal Diagnosis Suicidal Ideation Discharge Exam General: A&Ox3. NAD. Cooperative. HEENT: Atraumatic, normocephalic. Pulm: CTAB A&P. -wheezes, -rales, -rhonchi. Symmetrical chest rise. No increase work of breathing. No respiratory distress. Cardiac: RRR, -mrg. Radial pulses intact and symmetrical. Abdominal: soft, non-tender, non-distended, BS x 4 Skin: warm, dry, no rash Discharge Data Allergies Allergy/AdvReac Type Severity Reaction Status Date / Time No Known Allergies Allergy Verified 04/13/22 16:32 Consultations 04/16/22 19:03 ED Decision to Admit Stat 04/16/22 20:20 Consult Psychiatry Routine 04/17/22 06:10 Consult Behavioral Health Liaison Routine Hospital Course (1) Suicidal ideation: -Readmission after being discharged on 04/16 and went to the police station thereafter stating he was going to kill himself -Readmitted thereafter and now does not have ability to leave AMA -Continues to refuse medication treatment due to paranoia -Psychiatry following and appreciate their recommendations -Being transferred to our inpatient psychiatric unit today, as patient is medically stable -Continue one-to-one sitter (2) Pulmonary embolism: -Recently diagnosed given COVID-19 infection. -Currently hemodynamically stable without hypoxia -Recommend that he use Eliquis or Lovenox for treatment, however, patient continues to refuse likely due to paranoia - will need to f/u with PCP as outpatient regarding anti-coagulation (3) COVID-19: Resolved -Patient found to be positive on 04/13 on previous admission given generalized weakness and cough -Currently stable and not requiring supplemental oxygen. Completely a symptomatic. -Exam reassuring -Continues to refuse antivirals and steroids but may not be needed at this time (4) Schizophrenia: Chronic. Numerous psychiatric admissions. Psychiatry consultation appreciated (5) Hematuria: microscopic. May have been caused by systemic anticoagulation. No gross hematuria. - f/u as outpatient with PCP for repeat UA and further evaluation Plan Diet: Regular DVT prophylaxis: Should be on Eliquis or equivalent for PE treatment, however, patient refuses treatment Disposition: [facility] CODE STATUS: Full code Total Time Total Time Spent Total Time Spent (In Minutes): 30 minutes Discharge Plan Discharge Items Patient Disposition: Transfer Acute Care Hospital Reason For Visit: SUICIDAL IDEATIONS, COVID Discharge Diagnosis: Suicidal Ideation Activity: Per Instructions section Non-emergency contact: Primary Care Provider Call non-emergency contact if: you have any medication questions and your symptoms worsen Follow-up/Referrals: Aleksandra Purdy [Outside] - 05/14/22 3:40 pm Milbank Guadalupe [Outside] (Lorna ([facility] Puller) ) PCP,NO [Primary Care Provider] - Diet: Regular Addtl Attending Provider Instructions: (1) Suicidal ideation: Plan: -Readmission after being discharged on 04/16 and went to the police station thereafter stating he was going to kill himself -under involuntary commitment -Continues to refuse medication treatment due to paranoia -Psychiatry following and appreciate their recommendations -Medically stable - will be transferred to our inpatient psych unit on [facility] -One-to-one sitter, fortunately reasonably calm today, orders are in place for severe/violent agitation (2) Pulmonary embolism: Plan: -Recently diagnosed given COVID-19 infection. -Currently hemodynamically stable without hypoxia -We have continued to offer anticoagulation but he continues to refuse (3) COVID-19: Resolved. Plan: -Patient found to be positive on 04/13 on previous admission given generalized weakness and cough. Currently asymptomatic. Isolation precautions. (4) Dehydration: Resolved. Plan: Resolved with IV fluids. (5) Schizophrenia: Plan: Chronic. Numerous psychiatric admissions. Psychiatry consultation appreciated for inpatient psych, as stated above. (6) Hematuria: Plan: microscopic. May have been caused by systemic anticoagulation. No gross hematuria. Should be followed up as an outpatient - per PCP Pending Studies at Discharge: No Stand-Alone Forms: My [facility] Skilled Items Patient informed of condition?: Yes DNR: No Discharge Level of Care: Other Communicable Disease: No Discharge Prognosis: Stable Lines: None Urinary Catheter: No Medications and DC Order Prescriptions: Continued clonazepam 0.5 mg tablet 0.5 mg PO DAILY PRN (Reason: Anxiety) Eliquis 5 mg Tablet See Rx Instructions .ROUTE .COMPLEX Qty: 60 0RF Rx Instructions: 10 mg twice daily for 20 more days then decrease dosage to 5 mg twice a day going forward temazepam 15 mg capsule 15 mg PO HS PRN (Reason: Sleep) Qty: 15 0RF Abilify Maintena 400 mg suspension,extended rel recon 400 mg IM Q28D Qty: 1 0RF Discharge Orders: Discharge Order (Routine); Ordered 04/23/22 Ordered By: Dex De Paz Admission Data Admit Date/Time: 04/16/22 19:15 Attending Provider: Sudarshan Tena Admit Provider: Belinda Villagomez Primary Care Provider: PCP,NO Other Providers: Rosa Silva ; Sugey Alfredo ; Lena Corey ; Belinda Villagomez ; Crispin Madison Other Interventions: Discharge Summary Assessment (RN) Last Done: 04/23/22 11:45 PSY Fire Chief Assessment Last Done: 04/17/22 16:34 Supervising Physician Co-Signing Physician Notes Attending attestation Pt seen and examined in concert with Dr. De Paz. In agreement with the documented findings as noted in the resident documentation with any exceptions or additions as noted here. Resting in bed without acute complaint, ongoing SI. VS, nursing notes reviewed. On examination, S1/S2 nl RRR no MCG. CTAB. Abd NT/ND BS+ve Suicidal ideation in the setting of schizophrenia - psychiatry consult - to enter inpatient psychaitric care Pulmonary embolism with recent COVID-19 - strongly encourage ongoing use of DOAC for treatment when able, refused treatment for COVID as well Hematuria -will need outpatient follow up for repeat UA with PCP and consideration of urology referral based on that. Else see resident documentation as noted. Total attending physician time spent with this patient's care on the day of discharge: 40 minutes. Resident Activity Tracking Resident Involvement: Resident Care Provided Care Provided: Adult Hospital Medicine
== END 2022-04-23 12:26 | DRG 880 ==
LOC: ED 16:28 → SUATTDRO 19:15 → 3E 19:15

== ENCOUNTER 2022-04-23 12:41 | Inpatient (IN) ==
--- NOTE | 2022-04-23 13:02 | History & Physical ---
Date of Service April 23, 2022 Impression / Recommendations Impression The patient is a 77 year old with a history of schizophrenia, benzodiazepine use disorder, prior suicide attempts and multiple psychiatric hospitalizations (>13) who was admitted for worsening psychosis and SI following recent COVID infection. Diagnostically his schizophrenia appears to be worsening over the last few months with frequent ED visits and hospitalizations for psychosis and SI, this time triggered by his inability to find his keys/get back into his apartment. Remains concern for possible cognitive impairment component but fully oriented and seems improved from last psychiatric admission, suspect this could be due to elimination of Valium which he was on last fall/spring. Treatment remains challenging as he has been on nearly every antipsychotic at this point with limited benefit over time, clozapine trial in the past lead to significant side effects. For now will monitor to better assess severity of symptoms as there have been a delirium component to recent worsening in the aftermath of COVID infection and then determine if appropriate to proceed with next scheduled dose of Abilify FARAH versus alternative trial. Remains significant concerns related to temazepam use given his age, history of prior fall in the ED and history of benzo seeking. Will discontinue Klonopin daily prn and will decrease Temazepam given frequent use recently with plan of taper to discontinuation to prevent benzo withdrawal. Reviewed risks of anticoagulation with hospitalists who feel that PE was found incidentally and thus anticoagulation is likely not critically important/does not rise to the level of potentially irreversible harm/ and thus does not meet criteria to be given over objection. If however, he starts to refuse to move around the risk would increase and at that point IM lovenox would be recommended. For now will continue with po anticoagulation. The patient is deemed unstable and requires psychiatric hospitalization for diagnostic clarification, safety and stabilization, medicat ion management and development of further coping skills. MNPR-given paranoia, psychosis, inability to tolerate peers and older age (1) Schizophrenia: (2) Pulmonary embolism: (3) BPH (benign prostatic hyperplasia): (4) Tinnitus of right ear: (5) Hypertension: Hypertension type: essential hypertension Qualified Code(s): I10 - Essential (primary) hypertension Plan 04/23/22: The patient was admitted to the [facility] ([facility] unit) on q15 min checks (behavioral with suicide precautions) for safety. The patient will participate in group, recreational, and milieu therapies and will be offered additional individual and family sessions as clinically appropriate. -Continue with Eliquis 10mg BID until 05/13/22 then decrease to 5mg BID -Madie Aleman next due 04/27/22? Will confirm with outpatient office -Stop clonazepam -Decrease temazepam to 7.5mg qhs prn with plan to taper to discontinuation -olanzapine 5mg BID prn for agitation/anxiety Inventory Assets Strengths: has housing, has outpatient supports, done well in intermediate environment when medication adherent in the past Needs: medication adjustment, likely needs more supervised living environment Suicide Risk Level Suicide Risk Level: High-Moderate (q15 min suicide checks) Suicide Risk Level Comments: SI prior to admission with psychosis though now denying and feels safe on the unit. Agrees to tell nursing should he feel unsafe. Risk Factors Assessment Male: Yes : Yes Do You Have Access To A Gun?: No Health Problems: Yes Mental Health Diagnoses: Yes Previous Attempt: Yes Family History of Suicide: Yes Previous Psychiatric Hospitalization: Yes Hopelessness: No Protective Factors Assessment Good Rapport with Provider: Yes Psychiatric History Identifying Data SCOTT ROBERTO is a 77-year-old man who currently lives in [place] alone, has a history of schizophrenia, and was admitted on 04/23/22 12:41 on a 305 involuntary commitment for SI and worsening psychosis. Chief Complaint "I don't want to bother with it". History of Present Illness Tobi presents for psychiatric admission from the medical floor where he was admitted and remained in isolation due to COVID+ status. He is no longer within the infectious period and was deemed medically stable for psychiatric admission. Jamie is well known to me from his frequent past admissions as well as multiple interactions in recent weeks in the ED and on the consult service. Recent history leading to his admission per Dr. Alfredo's initial consult on 04/17/22: "patient was seen in respiratory isolation in full PPE and was uncooperative with assessment, repeatedly stating that he's not sick, doesn't need medication (including anticoagulants) and that he just wants an finance attorney. He will not elaborate and then ultimately refused for a list to be provided. He understands that he is here voluntarily. He arrived to the ED at direction of police as made suicidal statements there when he could not be let into his apartment in a timely manner but also talked of most of his longstanding delusions like being injected with botox in his muscles or getting the chip in his head removed." Dr. Alfredo summarized his recent psychiatric treatment which includes six different presentations in the ED/psychiatric and medical admissions due to SI and psychosis since February 2022. While on the consult service he continued to make statements related to paranoid beliefs that we implanted a chip in his ear/brain, that we were not who we said we were, attempted to elope requiring security intervention and was converted from his outpatient 304 commitment to an inpatient 305 involuntary commitment given ongoing high risk of harm to himself and lack of self-care due to acute psychosis. On the medical service he repeatedly refused to take his anticoagulation citing odd beliefs that it would cause him to pee or "mess up his face". Today Jamie is unwilling to engage in any type of extended conversation but notes that he recalls me from his previous admission in October 2021 and June 2021 and from talking via telemedicine visit over the last few days. He is fully oriented and reports his mood is "ok". He denies SI and denies hearing any voices. When asked about his concerns yesterday regarding providers at [facility] implanting a chip in his brain he states "I know nothing about it". Continues to refuse to consider taking oral anticoagulation stating "I don't care" and noting ongoing concerns that "I know it's a diuretic" and that "I don't want to bother with it!". He recalls being due for his next Abilify FARAH on 04/27/2022 and denies any side effects from this but also can't recall if it helps stating "I don't know". He is unwilling to participate any further in an interview. Past Psychiatric History Previous Psych History: hx living in a intermediate Current Psychiatric Diagnosis: schizophrenia, benzodiazepine use disorder Outpatient Services: Dr. Pizarro at [facility] for psychiatry, Shruti Guadalupe [facility] [place] Previous Psych Admissions: multiple- March 2022 at the [facility] but transferred to [facility] due to COVID+ status October 2021 Margaret October 2021 [facility] June 2021 [facility] February 2020 at [facility] December 2019 [facility] Sep-November 2019 [facility] Aug 2019 [facility] May 2019 [facility] February through May 2019 [facility] (90 day admission) Apr 2018 [place] Sep 2016 [facility] 2013 [facility] Do You Have Access To A Gun?: No History of Previous Suicide Attempt: Yes Describe Attempts in the Past: overdoses on medication Past Medication Trials: Per chart review: -Geodon 60mg BID with good effect initially then felt to be ineffective -olanzapine up to 30mg daily -Risperidal -Abilify, including FARAH -Haldol-developed dystonia -Thorazine-NMS -Invega -thiothixene -loxapine -Latuda -Seroquel -Clozapine-developed EPS, akathisia and confusion -Trilafon -diazepam-became more irritable and disinhibited -temazepam -clonazepam -ambien -Xanax -lorazepam -valium -amitriptyline -imipramine -Cymbalta -mirtazapine -clonidine Past Head Trauma/Neuro History History of Concussion/Seizure: No Allergies Allergy/AdvReac Type Severity Reaction Status Date / Time No Known Allergies Allergy Verified 04/13/22 16:32 Home Medications Medication Instructions Recorded Confirmed Type aripiprazole 400 mg intramuscular 400 mg IM Q28D #1 ea 10/30/21 04/13/22 Rx suspension,extended release (Abilify Maintena) temazepam 15 mg capsule 15 mg PO HS PRN Sleep #15 caps 10/30/21 04/13/22 Rx clonazepam 0.5 mg tablet 0.5 mg PO DAILY PRN Anxiety 04/13/22 04/13/22 History apixaban 5 mg tablet (Eliquis) See Rx Instructions .Route 04/16/22 Rx .COMPLEX #60 tabs Family History Family History of: Psychosis/ThoughtDisorder (mother) and Suicide Completion (cousin) Alcohol History Hx of Alcohol Use Over the Past 12 Months: No Smoking Use Have You Smoked or Used Tobacco Products in the Last 30 Days: No tobacco type: cigarettes Smoking Status: Never smoker Substance History Hx of Prescription Med Misuse Over the Past 12 Months: No Hx of Over the Counter Med Misuse Over the Past 12 Months: No Hx of Inhalent Misuse Over the Past 12 Months: No Hx of Organic Substance Use Over the Past 12 Months: No Hx of Illegal Substances/Street Drug Use Over Past 12 Months: No Personal History Living Arrangements: Apartment Born In: [place], but moved frequently Highest Grade Completed: College Employment Status: Retired Marital Status: Single Number Of Children: 0 Beliefs That Will Affect Care: None Current Legal Problems: No Hx Legal Problems: No Hx Traumatic Life Events: No Patient History Medical History Benzodiazepine abuse BPH (benign prostatic hyperplasia) Closed head injury Fall Hypertension Hypokalemia Leukocytosis (08/14/13) Rhabdomyolysis (07/21/13) Scalp laceration Schizophrenia Tobacco use disorder Surgical History No pertinent past surgical history Family History Father Cancer Mother Cancer Other No pertinent family history Denies family history of Hearing loss No family history of adverse response to anesthesia No family history of bleeding disorder Heart disease Allergies Hypertension Stroke Asthma Social History Smoking Status: Never smoker Tobacco Type: Cigarettes packs per day: 1; Number of Years Since Quit: 1; Hx Alcohol Use: No Hx Substance Use: No Preferred Language: Upper Sorbian Communication Ability: Effective Visual Impairment: No Limitations Hearing Ability: Normal Topstitcher Lockstitch Required: No Beliefs That Will Affect Care: None marital status: Single Current Living Situation: Alone current occupational status: retired Feels Safe at Home: Yes Assistive Devices: None Review of Systems Review of Systems: All systems reviewed & are unremarkable except as noted in HPI & below Physical Exam Psychiatric: Orientation: alert and oriented x 3 Apperance: appropriately dressed and appropriately groomed Eye Contact: + poor eye contact Motor Behavior: steady gait and station and no abnormal motor movements Speech: + abnormal rate/rhythm/volume of speech (non spontaneous, some latency/thought blocking) Affect: + flat affect Mood: + irritable mood; no depressed mood and no anxious mood Thought Process: + thought blocking and + concrete thought process Thought Content: + paranoid and + delusions Suicidal Thoughts: denies suicidal thoughts Homicidal Thoughts: denies homicidal tho ughts Hallucinations: + auditory hallucinations (denies but appears to be thought blocked/responding at times); no visual hallucinations Cognition: recent memory grossly intact, remote memory grossly intact, attention grossly intact and language grossly intact Insight: + severely impaired insight Judgement: + severely impaired judgement Exam Statement: A physical exam was performed on the medical floor by Dr. De Paz for the purposes of medical clearance. I accept that physical as correct and adequate for the purposes of the inpatient physical exam.
[2022-04-23] MEDS ORDERED: SODIUM CHLORIDE 0.65% NA SOLN 45 ML (OCEAN) PRN (13:08)
[2022-04-23] MEDS ORDERED: ACETAMINOPHEN 325 MG TAB PO PRN (13:08)
[2022-04-23] MEDS ORDERED: BISMUTH SUBSALICYLATE LIQD 236 ML PO PRN (13:08)
[2022-04-23] MEDS ORDERED: MAGNESIUM HYDROXIDE SUSP 30 ML UDC PO PRN (13:08)
[2022-04-23] MEDS ORDERED: ALUMINUM/MAGNESIUM SUSP 30 ML UDC PO PRN (13:08)
[2022-04-23] MEDS ORDERED: hydrOXYzine HCl 25 MG TAB PO PRN ×2 (13:08)
[2022-04-23] MEDS ORDERED: TEMAZEPAM 15 MG CAPSULE PO PRN (13:12)
[2022-04-23] MEDS ORDERED: clonazePAM 0.5 MG TAB PO PRN (13:12)
[2022-04-23] MEDS ORDERED: OLANZapine 5 MG TABLET PO PRN (14:05)
[2022-04-23] MEDS: APIXABAN 5 MG TABLET PO SCH (20:36)
[2022-04-23] MEDS: TEMAZEPAM 7.5 MG CAPSULE PO PRN (20:43)
[2022-04-24] MEDS: APIXABAN 5 MG TABLET PO SCH ×2 (08:42→21:18)
--- NOTE | 2022-04-24 17:47 | Psychiatric Progress Note ---
Date of Service April 24, 2022 Impression / Recommendations Impression The patient is a 77 year old with a history of schizophrenia, benzodiazepine use disorder, prior suicide attempts and multiple psychiatric hospitalizations (>13) who was admitted for worsening psychosis and SI following recent COVID infection on 305 commitment. Diagnostically his schizophrenia appears to be worsening over the last few months with frequent ED visits and hospitalizations for psychosis and SI, this time triggered by his inability to find his keys/get back into his apartment. The patient is deemed unstable and requires psychiatric hospitalization for diagnostic clarification, safety and stabilization, medication management and development of further coping skills. MNPR-given paranoia, psychosis, inability to tolerate peers and older age 904/24/22: Remains isolative with likely thought blocking, seems unaware of recent events re: his car breaking. Remains focused on temazepam. Continues to have delusions about role of blood thinner medication. (1) Schizophrenia: (2) Pulmonary embolism: (3) BPH (benign prostatic hyperplasia): (4) Tinnitus of right ear: (5) Hypertension: Plan 04/24/22: Continue current medications and tx plan. Reach out to Dr. Pizarro tomorrow to discuss recent medications, likely will proceed with madie FARAH in next few days 04/23/22: The patient was admitted to the [facility] ([facility] unit) on q15 min checks (behavioral with suicide precautions) for safety. The patient will participate in group, recreational, and milieu therapies and will be offered additional individual and family sessions as clinically appropriate. -Continue with Eliquis 5mg BID, discussed dosing with pharmacist as he had been refusing some recent doses -Madie Aleman last given 03/29/2022 -Stop clonazepam -Decrease temazepam to 7.5mg qhs prn with plan to taper to discontinuation -olanzapine 5mg BID prn for agitation/anxiety Inventory Assets Strengths: has housing, has outpatient supports, done well in long term environment when medication adherent in the past Needs: medication adjustment, likely needs more supervised living environment Suicide Risk Level Suicide Risk Level: High-Moderate (q15 min suicide checks) Suicide Risk Level Comments: SI prior to admission with psychosis though now denying and feels safe on the unit. Agrees to tell nursing should he feel unsafe. Risk Factors Assessment Male: Yes : Yes Do You Have Access To A Gun?: No Health Problems: Yes Mental Health Diagnoses: Yes Previous Attempt: Yes Family History of Suicide: Yes Previous Psychiatric Hospitalization: Yes Hopelessness: No Protective Factors Assessment Good Rapport with Provider: Yes Interval History Identifying Information SCOTT ROBERTO is a 77-year-old man who currently lives in [place] alone, has a history of schizophrenia, and was admitted on 04/23/22 12:41 on a 305 involuntary commitment for SI and worsening psychosis. Chief Complaint "I'm ok". Review of Systems Sleep Information Total Hours of Sleep: 7 Meal Information Percent Meal Consumed - Breakfast: 100 Percent Meal Consumed - Lunch: 100 Percent Meal Consumed - Dinner: 100 Subjective Subjective Patient was seen & assessed and interval progress reviewed with treatment team nursing and social work. He was masturbating last night with the door open but otherwise has been fairly behaviorally appropriate. Isolative to his room but did attend one group. His special education case manager visited him-updated team that his car stopped working in January. In asking Jamie about that he states "I don't know about the car, maybe". Continues to refuse blood thinner as he believes it is a diruetic, even with change in type of blood thinner. Told the group his goal for the day was "temazepam". Physical Exam Psychiatric Orientation: alert and oriented x 3 Apperance: appropriately dressed and appropriately groomed Eye Contact: + poor eye contact Motor Behavior: steady gait and station and no abnormal motor movements Speech: + abnormal rate/rhythm/volume of speech (non spontaneous, some latency/thought blocking) Affect: + flat affect Mood: + irritable mood; no depressed mood and no anxious mood Thought Process: + thought blocking and + concrete thought process Thought Content: + paranoid and + delusions Suicidal Thoughts: denies suicidal thoughts Homicidal Thoughts: denies homicidal thoughts Hallucinations: + auditory hallucinations (denies but appears to be thought blocked/responding at times); no visual hallucinations Cognition: recent memory grossly intact, remote memory grossly intact, attention grossly intact and language grossly intact Insight: + severely impaired insight Judgement: + severely impaired judgement Vital Signs (Past 24 Hours) Last Vital Signs Temp 37 C 04/24/22 06:36 Pulse 91 H 04/24/22 06:37 Resp 16 04/24/22 06:36 BP 119/73 04/24/22 06:37 Results & Data ([facility]) Current Inpatient Medications Current Inpatient Medications: Current Inpatient Medications Acetaminophen (Acetaminophen 325 Mg Tab) 650 mg PO Q4H PRN PRN Reason: Headache or Minor Fever Stop: 05/23/22 13:07 Al Hydrox/Mg Hydrox/Simethicone (Aluminum/Magnesium Susp 30 Ml Udc) 30 ml PO Q4H PRN PRN Reason: GI Upset Stop: 05/23/22 13:07 Apixaban (Apixaban 5 Mg Tablet) 5 mg PO BID MAG Stop: 05/23/22 20:59 Last Admin: 04/24/22 08:42 Dose: Not Given Hydroxyzine HCl (Hydroxyzine Hcl 25 Mg Tab) 50 mg PO HSZ PRN PRN Reason: Insomnia Stop: 05/23/22 13:07 Hydroxyzine HCl (Hydroxyzine Hcl 25 Mg Tab) 25 mg PO Q4H PRN PRN Reason: Anxiety Stop: 05/23/22 13:07 Magnesium Hydroxide (Magnesium Hydroxide Susp 30 Ml Udc) 30 ml PO DAILY PRN PRN Reason: Constipation Stop: 05/23/22 13:07 Olanzapine (Olanzapine 5 Mg Tablet) 5 mg PO BID PRN PRN Reason: Anxiety/Agitation Stop: 05/23/22 20:59 Sodium Chloride (Sodium Chloride 0.65% Na Soln 45 Ml ([place])) 1 - 2 sprays NA PRN PRN PRN Reason: Nasal Dryness/Congestion Stop: 05/23/22 13:07 Temazepam (Temazepam 7.5 Mg Capsule) 7.5 mg PO HS PRN PRN Reason: Sleep Stop: 05/23/22 13:11 Last Admin: 04/23/22 20:43 Dose: 7.5 mg (1) Hypertension Hypertension type: essential hypertension Qualified Code(s): I10 - Essential (primary) hypertension
[2022-04-24] MEDS: TEMAZEPAM 7.5 MG CAPSULE PO PRN (22:12)
[2022-04-25] MEDS: APIXABAN 5 MG TABLET PO SCH ×2 (08:56→21:16)
--- NOTE | 2022-04-25 16:41 | Psychiatric Progress Note ---
Date of Service April 25, 2022 Impression / Recommendations Impression The patient is a 77 year old with a history of schizophrenia, benzodiazepine use disorder, prior suicide attempts and multiple psychiatric hospitalizations (>13) who was admitted for worsening psychosis and SI following recent COVID infection on 305 commitment. Diagnostically his schizophrenia appears to be worsening over the last few months with frequent ED visits and hospitalizations for psychosis and SI, this time triggered by his inability to find his keys/get back into his apartment. The patient is deemed unstable and requires psychiatric hospitalization for diagnostic clarification, safety and stabilization, medication management and development of further coping skills. MNPR-given paranoia, psychosis, inability to tolerate peers and older age 904/25/22: Very concrete and ongoing paranoia about psychiatrists/providers and continues to refuse his blood thinner demonstrating ongoing poor insight as he has been repeatedly told about his PE which he believes is insignificant and not problematic. (1) Schizophrenia: (2) Pulmonary embolism: (3) BPH (benign prostatic hyperplasia): (4) Tinnitus of right ear: (5) Hypertension: Plan 04/25/22: left message with Dr. Pizarro's office. Continue with current medications and tx plan. Plan for abilify FARAH in the next 1-2 days. 04/24/22: Continue current medications and tx plan. Reach out to Dr. Pizarro tomorrow to discuss recent medications, likely will proceed with abilify FARAH in next few days 04/23/22: The patient was admitted to the [facility] ([facility]) on q15 min checks (behavioral with suicide precautions) for safety. The patient will participate in group, recreational, and milieu therapies and will be offered additional individual and family sessions as clinically appropriate. -Continue with Eliquis 5mg BID, discussed dosing with pharmacist as he had been refusing some recent doses -Abilify Maintena last given 03/29/2022 -Stop clonazepam -Decrease temazepam to 7.5mg qhs prn with plan to taper to discontinuation -olanzapine 5mg BID prn for agitation/anxiety Inventory Assets Strengths: has housing, has outpatient supports, done well in sn[facility] environment when medication adherent in the past Needs: medication adjustment, likely needs more supervised living environment Suicide Risk Level Suicide Risk Level: High-Moderate (q15 min suicide checks) Suicide Risk Level Comments: SI prior to admission with psychosis though now denying and feels safe on the unit. Agrees to tell nursing should he feel unsafe. Risk Factors Assessment Male: Yes : Yes Do You Have Access To A Gun?: No Health Problems: Yes Mental Health Diagnoses: Yes Previous Attempt: Yes Family History of Suicide: Yes Previous Psychiatric Hospitalization: Yes Hopelessness: No Protective Factors Assessment Good Rapport with Provider: Yes Interval History Identifying Information SCOTT ROBERTO is a 77-year-old man who currently lives in [place] alone, has a history of schizophrenia, and was admitted on 04/23/22 12:41 on a 305 involuntary commitment for SI and worsening psychosis. Chief Complaint "I'm good". Review of Systems Sleep Information Total Hours of Sleep: 7.25 Meal Information Percent Meal Consumed - Breakfast: 100 Percent Meal Consumed - Lunch: 100 Percent Meal Consumed - Dinner: 100 Subjective Subjective Patient was seen & assessed and interval progress reviewed with treatment team nursing and social work. Jamie has been isolative at times but has been attendin g groups and eating separately but around peers. States his mood is "good" and denies any concerns today. When I ask him if I contact Dr. Pizarro he tells me his concern that Dr. Pizarro is "not a real psychiatrist, he does drug and alcohol stuff" and explains he's come to this conclusion after being asked to do a survey on substance use when going to an appointment at Dr. Pizarro's office, tells me I can call him but "figured you should know". Is agreeable to getting Abilify FARAH in the next few days. Has been showering and shaving. Physical Exam Psychiatric Orientation: alert and oriented x 3 Apperance: appropriately dressed and appropriately groomed Eye Contact: + poor eye contact Motor Behavior: steady gait and station and no abnormal motor movements Speech: + abnormal rate/rhythm/volume of speech (non spontaneous but responds to questions) Affect: + flat affect Mood: no depressed mood and no anxious mood Thought Process: + concrete thought process Thought Content: + paranoid and + delusions Suicidal Thoughts: denies suicidal thoughts Homicidal Thoughts: denies homicidal thoughts Hallucinations: no auditory hallucinations and no visual hallucinations Cognition: recent memory grossly intact, remote memory grossly intact, attention grossly intact and language grossly intact Insight: + impaired insight Judgement: + impaired judgement Vital Signs (Past 24 Hours) Last Vital Signs Temp 36.9 C 04/25/22 06:33 Pulse 94 H 04/25/22 06:34 Resp 16 04/25/22 06:33 BP 128/81 04/25/22 06:34 Results & Data ([facility]) Current Inpatient Medications Current Inpatient Medications: Current Inpatient Medications Acetaminophen (Acetaminophen 325 Mg Tab) 650 mg PO Q4H PRN PRN Reason: Headache or Minor Fever Stop: 05/23/22 13:07 Al Hydrox/Mg Hydrox/Simethicone (Aluminum/Magnesium Susp 30 Ml Udc) 30 ml PO Q4H PRN PRN Reason: GI Upset Stop: 05/23/22 13:07 Apixaban (Apixaban 5 Mg Tablet) 5 mg PO BID MAG Stop: 05/23/22 20:59 Last Admin: 04/25/22 08:56 Dose: Not Given Hydroxyzine HCl (Hydroxyzine Hcl 25 Mg Tab) 50 mg PO HSZ PRN PRN Reason: Insomnia Stop: 05/23/22 13:07 Hydroxyzine HCl (Hydroxyzine Hcl 25 Mg Tab) 25 mg PO Q4H PRN PRN Reason: Anxiety Stop: 05/23/22 13:07 Magnesium Hydroxide (Magnesium Hydroxide Susp 30 Ml Udc) 30 ml PO DAILY PRN PRN Reason: Constipation Stop: 05/23/22 13:07 Olanzapine (Olanzapine 5 Mg Tablet) 5 mg PO BID PRN PRN Reason: Anxiety/Agitation Stop: 05/23/22 20:59 Sodium Chloride (Sodium Chloride 0.65% Na Soln 45 Ml ([place])) 1 - 2 sprays NA PRN PRN PRN Reason: Nasal Dryness/Congestion Stop: 05/23/22 13:07 Temazepam (Temazepam 7.5 Mg Capsule) 7.5 mg PO HS PRN PRN Reason: Sleep Stop: 05/23/22 13:11 Last Admin: 04/24/22 22:12 Dose: 7.5 mg (1) Hypertension Hypertension type: essential hypertension Qualified Code(s): I10 - Essential (primary) hypertension
[2022-04-26] MEDS: APIXABAN 5 MG TABLET PO SCH ×2 (07:38→21:01)
--- NOTE | 2022-04-26 15:40 | Psychiatric Progress Note ---
Date of Service April 26, 2022 Impression / Recommendations Impression The patient is a 77 year old with a history of schizophrenia, benzodiazepine use disorder, prior suicide attempts and multiple psychiatric hospitalizations (>13) who was admitted for worsening psychosis and SI following recent COVID infection on 305 commitment. Diagnostically his schizophrenia appears to be worsening over the last few months with frequent ED visits and hospitalizations for psychosis and SI, this time triggered by his inability to find his keys/get back into his apartment. The patient is deemed unstable and requires psychiatric hospitalization for diagnostic clarification, safety and stabilization, medication management and development of further coping skills. MNPR-given paranoia, psychosis, inability to tolerate peers and older age 904/26/22: Very concrete and ongoing delusion about his blood thinner. He consents to getting his Abilify FARAH tomorrow. Discussed risks, benefits and alternatives. Reviewed side effects including but not limited to: movement (TD, NMS), cardiac (QTc prolongation), and metabolic (stroke, insulin resistance) and necessity for fasting lipid and glucose labwork and AIMS done with score of 0. . Will get fasting labs tomorrow morning as well. (1) Schizophrenia: (2) Pulmonary embolism: (3) BPH (benign prostatic hyperplasia): (4) Tinnitus of right ear: (5) Hypertension: Plan 04/26/22: Continue current medications and tx. Plan for abilify maintena 400mg IM tomorrow. Fasting lipid panel and glucose tomorrow morning. 04/25/22: left message with Dr. Pizarro's office. Continue with current medications and tx plan. Plan for abilify FARAH in the next 1-2 days. 04/24/22: Continue current medications and tx plan. Reach out to Dr. Pizarro tomorrow to discuss recent medications, likely will proceed with abilify FARAH in next few days 04/23/22: The patient was admitted to the [facility] ([facility]) on q15 min checks (behavioral with suicide precautions) for safety. The patient will participate in group, recreational, and milieu therapies and will be offered additional individual and family sessions as clinically appropriate. -Continue with Eliquis 5mg BID, discussed dosing with pharmacist as he had been refusing some recent doses -Abilify Maintena last given 03/29/2022 -Stop clonazepam -Decrease temazepam to 7.5mg qhs prn with plan to taper to discontinuation -olanzapine 5mg BID prn for agitation/anxiety Inventory Assets Strengths: has housing, has outpatient supports, done well in [facility] environment when medication adherent in the past Needs: medication adjustment, likely needs more supervised living environment Suicide Risk Level Suicide Risk Level: High-Moderate (q15 min suicide checks) Suicide Risk Level Comments: SI prior to admission with psychosis though now denying and feels safe on the unit. Agrees to tell nursing should he feel unsafe. Risk Factors Assessment Male: Yes : Yes Do You Have Access To A Gun?: No Health Problems: Yes Mental Health Diagnoses: Yes Previous Attempt: Yes Family History of Suicide: Yes Previous Psychiatric Hospitalization: Yes Hopelessness: No Protective Factors Assessment Good Rapport with Provider: Yes Interval History Identifying Information SCOTT ROBERTO is a 77-year-old man who currently lives in [place] alone, has a history of schizophrenia, and was admitted on 04/23/22 12:41 on a 305 involuntary commitment for SI and worsening psychosis. Chief Complaint "I didn't sleep". Review of Systems Sleep Information Total Hours of Sleep: 8.25 Meal Information Percent Meal Consumed - Breakfast: 100 Percent Meal Consumed - Lunch: 100 Percent Meal Consumed - Dinner: 100 Subjective Subjective Patient was seen & assessed and interval progress reviewed with treatment team nursing and social work. Continues to attend groups. Did not request his prn temazepam last night and reports he slept poor due to this. Knows he can request this tonight. Denies SI. States he is going to the groups because "it gets me out of my room". Reviewed plan to clip his finger nails when a nail clipper can be located. None currently available on the unit and none available through hospital supply currently. He was understanding of this. Continues to refuse blood thinner due to concern it is a diuretic even with daily education. Physical Exam Psychiatric Orientation: alert and oriented x 3 Apperance: appropriately dressed and appropriately groomed Eye Contact: + poor eye contact Motor Behavior: steady gait and station and no abnormal motor movements Speech: + abnormal rate/rhythm/volume of speech (non spontaneous but responds to questions) Affect: + flat affect Mood: no depressed mood and no anxious mood Thought Process: + concrete thought process Thought Content: + paranoid and + delusions Suicidal Thoughts: denies suicidal thoughts Homicidal Thoughts: denies homicidal thoughts Hallucinations: + auditory hallucinations (told SW he is hearing voices from the chip in his ear); no visual hallucinations Cognition: recent memory grossly intact, remote memory grossly intact, attention grossly intact and language grossly intact Insight: + impaired insight Judgement: + impaired judgement Vital Signs (Past 24 Hours) Last Vital Signs Temp 36.8 C 04/26/22 06:00 Pulse 89 04/26/22 06:53 Resp 18 04/26/22 06:00 BP 125/89 04/26/22 06:53 Results & Data ([facility]) Current Inpatient Medications Current Inpatient Medications: Current Inpatient Medications Acetaminophen (Acetaminophen 325 Mg Tab) 650 mg PO Q4H PRN PRN Reason: Headache or Minor Fever Stop: 05/23/22 13:07 Al Hydrox/Mg Hydrox/Simethicone (Aluminum/Magnesium Susp 30 Ml Udc) 30 ml PO Q4H PRN PRN Reason: GI Upset Stop: 05/23/22 13:07 Apixaban (Apixaban 5 Mg Tablet) 5 mg PO BID MAG Stop: 05/23/22 20:59 Last Admin: 04/26/22 07:38 Dose: Not Given Hydroxyzine HCl (Hydroxyzine Hcl 25 Mg Tab) 50 mg PO HSZ PRN PRN Reason: Insomnia Stop: 05/23/22 13:07 Hydroxyzine HCl (Hydroxyzine Hcl 25 Mg Tab) 25 mg PO Q4H PRN PRN Reason: Anxiety Stop: 05/23/22 13:07 Magnesium Hydroxide (Magnesium Hydroxide Susp 30 Ml Udc) 30 ml PO DAILY PRN PRN Reason: Constipation Stop: 05/23/22 13:07 Olanzapine (Olanzapine 5 Mg Tablet) 5 mg PO BID PRN PRN Reason: Anxiety/Agitation Stop: 05/23/22 20:59 Sodium Chloride (Sodium Chloride 0.65% Na Soln 45 Ml ([place])) 1 - 2 sprays NA PRN PRN PRN Reason: Nasal Dryness/Congestion Stop: 05/23/22 13:07 Temazepam (Temazepam 7.5 Mg Capsule) 7.5 mg PO HS PRN PRN Reason: Sleep Stop: 05/23/22 13:11 Last Admin: 04/24/22 22:12 Dose: 7.5 mg (1) Hypertension Hypertension type: essential hypertension Qualified Code(s): I10 - Essential (primary) hypertension
[2022-04-26] MEDS: TEMAZEPAM 7.5 MG CAPSULE PO PRN (21:11)
[2022-04-27] MEDS: APIXABAN 5 MG TABLET PO SCH ×2 (08:41→20:51)
--- NOTE | 2022-04-27 09:00 | Psychiatric Progress Note ---
Date of Service April 27, 2022 Impression / Recommendations Impression The patient is a 77 year old with a history of schizophrenia, benzodiazepine use disorder, prior suicide attempts and multiple psychiatric hospitalizations (>13) who was admitted for worsening psychosis and SI following recent COVID infection on 305 commitment. Diagnostically his schizophrenia appears to be worsening over the last few months with frequent ED visits and hospitalizations for psychosis and SI, this time triggered by his inability to find his keys/get back into his apartment. The patient is deemed unstable and requires psychiatric hospitalization for diagnostic clarification, safety and stabilization, medication management and development of further coping skills. MNPR-given paranoia, psychosis, inability to tolerate peers and older age 904/27/22: Very concrete and ongoing delusion about his blood thinner. He consents to getting Abilify Aristada FARAH tomorrow. Discussed risks, benefits and alternatives. Reviewed side effects including but not limited to: movement (TD, NMS), cardiac (QTc prolongation), and metabolic (stroke, insulin resistance) and necessity for routine monitoring of fasting lipid and glucose labwork and AIMS done with score of 0. Reviewed fasting labwork from this morning which was normal. Base don previous Abilify Maintenna 400mg dose IM was given on 03/29/22. Abilify Aristada equivalent dose is 882 mg IM [id number]. Clipped his fingernails per his request. (1) Schizophrenia: (2) Pulmonary embolism: (3) BPH (benign prostatic hyperplasia): (4) Tinnitus of right ear: (5) Hypertension: Plan 04/27/22: Abilify Maintena not available on hospital formulary so he agrees to Abilify Aristada of dose equivalence of 882mg to be given tomorrow. Can then get Maintena or Aristada again in 4 weeks. 04/26/22: Continue current medications and tx. Plan for abilify maintena 400mg IM tomorrow. Fasting lipid panel and glucose tomorrow morning. 04/25/22: left message with Dr. Pizarro's office. Continue with current medications and tx plan. Plan for abilify FARAH in the next 1-2 days. 04/24/22: Continue current medications and tx plan. Reach out to Dr. Pizarro tomorrow to discuss recent medications, likely will proceed with abilify FARAH in next few days 04/23/22: The patient was admitted to the [facility] ([facility] inpatient mental health unit) on q15 min checks (behavioral with suicide precautions) for safety. The patient will participate in group, recreational, and milieu therapies and will be offered additional individual and family sessions as clinically appropriate. -Continue with Eliquis 5mg BID, discussed dosing with pharmacist as he had been refusing some recent doses -Enedinaceferinomarek Damona last given 03/29/2022 -Stop clonazepam -Decrease temazepam to 7.5mg qhs prn with plan to taper to discontinuation -olanzapine 5mg BID prn for agitation/anxiety Inventory Assets Strengths: has housing, has outpatient supports, done well in [facility] environment when medication adherent in the past Needs: medication adjustment, likely needs more supervised living environment Suicide Risk Level Suicide Risk Level: High-Moderate (q15 min suicide checks) Suicide Risk Level Comments: SI prior to admission with psychosis though now denying and feels safe on the unit. Agrees to tell nursing should he feel unsafe. Risk Factors Assessment Male: Yes : Yes Do You Have Access To A Gun?: No Health Problems: Yes Mental Health Diagnoses: Yes Previous Attempt: Yes Family History of Suicide: Yes Previous Psychiatric Hospitalization: Yes Hopelessness: No Protective Factors Assessment Good Rapport with Provider: Yes Interval History Identifying Information SCOTT ROBERTO is a 77-year-old man who currently lives in [place] alone, has a history of schizophrenia, and was admitted on 04/23/22 12:41 on a 305 involuntary commitment for SI and worsening psychosis. Chief Complaint "I'm fine". Review of Systems Sleep Information Total Hours of Sleep: 7 Meal Information Percent Meal Consumed - Breakfast: 100 Percent Meal Consumed - Lunch: 100 Percent Meal Consumed - Dinner: 100 Subjective Subjective Patient was seen & assessed and interval progress reviewed with treatment team nursing and social work. She did have that I was able to clip his fingernails and appropriately asked for and uses a nail file to smooth them out. States his mood is "fine". Reports he slept "much better" after he requested his as needed temazepam last night. 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 He does not engage in conversation or spontaneous interaction with peers but has been attending groups and sharing when prompted. It was me that his aquino is in his wallet so we will look into this. Reviewed that Madie Aleman is not available on hospital formulary and that his family caseworker cannot pick this up and bring it to the hospital as he receives it via mail order and needs to sign for it. He consents to the alternative version we have on formulary which is Aristada. Makes no mention of the voices today or the chip in his ear. Denies suicidal ideation. Physical Exam Psychiatric Orientation: alert and oriented x 3 Apperance: appropriately dressed and appropriately groomed Eye Contact: + poor eye contact Motor Behavior: steady gait and station and no abnormal motor movements Speech: + abnormal rate/rhythm/volume of speech (non spontaneous but responds to questions) Affect: + flat affect Mood: no depressed mood and no anxious mood Thought Process: + concrete thought process Thought Content: + delusions Suicidal Thoughts: denies suicidal thoughts Homicidal Thoughts: denies homicidal thoughts Hallucinations: no auditory hallucinations and no visual hallucinations Cognition: recent memory grossly intact, remote memory grossly intact, attention grossly intact and language grossly intact Insight: + impaired insight Judgement: + impaired judgement Vital Signs (Past 24 Hours) Last Vital Signs Temp 36.9 C 04/27/22 06:00 Pulse 84 04/27/22 06:44 Resp 18 04/27/22 06:00 BP 125/81 04/27/22 06:44 Results & Data ([facility]) Laboratory Results Laboratory Results - last 24 hr 04/27/22 07:03 Fasting Glucose 85 Triglycerides 60 Cholesterol 143 LDL Cholesterol, Calc 84 VLDL Cholesterol, Calc 12 HDL Cholesterol 47 Cholesterol/HDL Ratio 3.0 Current Inpatient Medications Current Inpatient Medications: Current Inpatient Medications Acetaminophen (Acetaminophen 325 Mg Tab) 650 mg PO Q4H PRN PRN Reason: Headache or Minor Fever Stop: 05/23/22 13:07 Al Hydrox/Mg Hydrox/Simethicone (Aluminum/Magnesium Susp 30 Ml Udc) 30 ml PO Q4H PRN PRN Reason: GI Upset Stop: 05/23/22 13:07 Apixaban (Apixaban 5 Mg Tablet) 5 mg PO BID MAG Stop: 05/23/22 20:59 Last Admin: 04/27/22 08:41 Dose: Not Given Hydroxyzine HCl (Hydroxyzine Hcl 25 Mg Tab) 50 mg PO HSZ PRN PRN Reason: Insomnia Stop: 05/23/22 13:07 Hydroxyzine HCl (Hydroxyzine Hcl 25 Mg Tab) 25 mg PO Q4H PRN PRN Reason: Anxiety Stop: 05/23/22 13:07 Magnesium Hydroxide (Magnesium Hydroxide Susp 30 Ml Udc) 30 ml PO DAILY PRN PRN Reason: Constipation Stop: 05/23/22 13:07 Olanzapine (Olanzapine 5 Mg Tablet) 5 mg PO BID PRN PRN Reason: Anxiety/Agitation Stop: 05/23/22 20:59 Sodium Chloride (Sodium Chloride 0.65% Na Soln 45 Ml ([place])) 1 - 2 sprays NA PRN PRN PRN Reason: Nasal Dryness/Congestion Stop: 05/23/22 13:07 Temazepam (Temazepam 7.5 Mg Capsule) 7.5 mg PO HS PRN PRN Reason: Sleep Stop: 05/23/22 13:11 Last Admin: 04/26/22 21:11 Dose: 7.5 mg (1) Hypertension Hypertension type: essential hypertension Qualified Code(s): I10 - Essential (primary) hypertension
[2022-04-27] MEDS: TEMAZEPAM 7.5 MG CAPSULE PO PRN (20:54)
[2022-04-28] MEDS: APIXABAN 5 MG TABLET PO SCH ×2 (08:49→21:23)
[2022-04-28] MEDS ORDERED: ARIPiprazole LAUROXIL 882 MG/3.2 ML SYR IM ONE (12:00)
--- NOTE | 2022-04-28 15:56 | Psychiatric Progress Note ---
Date of Service April 28, 2022 Impression / Recommendations Impression The patient is a 77 year old with a history of schizophrenia, benzodiazepine use disorder, prior suicide attempts and multiple psychiatric hospitalizations (>13) who was admitted for worsening psychosis and SI following recent COVID infection on 305 commitment. Diagnostically his schizophrenia appears to be worsening over the last few months with frequent ED visits and hospitalizations for psychosis and SI, this time triggered by his inability to find his keys/get back into his apartment. MNPR-given hx paranoia, psychosis, inability to tolerate peers and older age 904/28/22: much improved from last contact. (1) Schizophrenia: (2) Pulmonary embolism: (3) BPH (benign prostatic hyperplasia): (4) Tinnitus of right ear: (5) Hypertension: Plan 04/28/22: continue current meds and treatment plan. 04/27/22: Abilify Maintena not available on hospital formulary so he agrees to Abilify Aristada of dose equivalence of 882mg to be given tomorrow. Can then get Maintena or Aristada again in 4 weeks. 04/26/22: Continue current medications and tx. Plan for abilify maintena 400mg IM tomorrow. Fasting lipid panel and glucose tomorrow morning. 04/25/22: left message with Dr. Pizarro's office. Continue with current medications and tx plan. Plan for abilify FARAH in the next 1-2 days. 04/24/22: Continue current medications and tx plan. Reach out to Dr. Pizarro tomorrow to discuss recent medications, likely will proceed with abilify FARAH in next few days 04/23/22: The patient was admitted to the [facility] ([facility] mental health unit) on q15 min checks (behavioral with suicide precautions) for safety. The patient will participate in group, recreational, and milieu therapies and will be offered additional individual and family sessions as clinically appropriate. -Continue with Eliquis 5mg BID, discussed dosing with pharmacist as he had been refusing some recent doses -Abilify Maintena last given 03/29/2022 -Stop clonazepam -Decrease temazepam to 7.5mg qhs prn with plan to taper to discontinuation -olanzapine 5mg BID prn for agitation/anxiety Inventory Assets Strengths: has housing, has outpatient supports, done well in prison environment when medication adherent in the past Needs: medication adjustment, likely needs more supervised living environment Suicide Risk Level Suicide Risk Level: High-Moderate (q15 min suicide checks) Suicide Risk Level Comments: SI prior to admission with psychosis though now denying and feels safe on the unit. Agrees to tell nursing should he feel unsafe. Risk Factors Assessment Male: Yes : Yes Do You Have Access To A Gun?: No Health Problems: Yes Mental Health Diagnoses: Yes Previous Attempt: Yes Family History of Suicide: Yes Previous Psychiatric Hospitalization: Yes Hopelessness: No Protective Factors Assessment Good Rapport with Provider: Yes Interval History Identifying Information SCOTT ROBERTO is a 77-year-old man who currently lives in [place] alone, has a history of schizophrenia, and was admitted on 04/23/22 12:41 on a 305 involuntary commitment for SI and worsening psychosis. Chief Complaint "I'm good." Review of Systems Sleep Information Total Hours of Sleep: 6.5 Meal Information Percent Meal Consumed - Breakfast: 100 Percent Meal Consumed - Lunch: 100 Percent Meal Consumed - Dinner: 100 Subjective Subjective Patient was seen & assessed and interval progress reviewed with nursing and social work. Has been surprisingly cooperative with staff/groups. Accepting of injection. His car is not working and he will not be driving following discharge. He agrees that he is much better now that acute COVID infection has passed. Physical Exam Psychiatric Orientation: alert and oriented x 3 Apperance: appropriately dressed and appropriately groomed Eye Contact: + poor eye contact Motor Behavior: steady gait and station and no abnormal motor movements Speech: + abnormal rate/rhythm/volume of speech (non spontaneous but responds to questions) Affect: + flat affect Mood: no depressed mood and no anxious mood Thought Process: + concrete thought process Thought Content: + delusions Suicidal Thoughts: denies suicidal thoughts Homicidal Thoughts: denies homicidal thoughts Hallucinations: no auditory hallucinations and no visual hallucinations Cognition: recent memory grossly intact, remote memory grossly intact, attention grossly intact and language grossly intact Vital Signs (Past 24 Hours) Last Vital Signs Temp 37 C 04/28/22 06:40 Pulse 90 04/28/22 06:40 Resp 16 04/28/22 06:40 BP 125/72 04/28/22 06:40 Results & Data ([facility]) Current Inpatient Medications Current Inpatient Medications: Current Inpatient Medications Acetaminophen (Acetaminophen 325 Mg Tab) 650 mg PO Q4H PRN PRN Reason: Headache or Minor Fever Stop: 05/23/22 13:07 Al Hydrox/Mg Hydrox/Simethicone (Aluminum/Magnesium Susp 30 Ml Udc) 30 ml PO Q4H PRN PRN Reason: GI Upset Stop: 05/23/22 13:07 Apixaban (Apixaban 5 Mg Tablet) 5 mg PO BID MAG Stop: 05/23/22 20:59 Last Admin: 04/28/22 08:49 Dose: Not Given Hydroxyzine HCl (Hydroxyzine Hcl 25 Mg Tab) 50 mg PO HSZ PRN PRN Reason: Insomnia Stop: 05/23/22 13:07 Hydroxyzine HCl (Hydroxyzine Hcl 25 Mg Tab) 25 mg PO Q4H PRN PRN Reason: Anxiety Stop: 05/23/22 13:07 Magnesium Hydroxide (Magnesium Hydroxide Susp 30 Ml Udc) 30 ml PO DAILY PRN PRN Reason: Constipation Stop: 05/23/22 13:07 Olanzapine (Olanzapine 5 Mg Tablet) 5 mg PO BID PRN PRN Reason: Anxiety/Agitation Stop: 05/23/22 20:59 Sodium Chloride (Sodium Chloride 0.65% Na Soln 45 Ml ([place])) 1 - 2 sprays NA PRN PRN PRN Reason: Nasal Dryness/Congestion Stop: 05/23/22 13:07 Temazepam (Temazepam 7.5 Mg Capsule) 7.5 mg PO HS PRN PRN Reason: Sleep Stop: 05/23/22 13:11 Last Admin: 04/27/22 20:54 Dose: 7.5 mg (1) Hypertension Hypertension type: essential hypertension Qualified Code(s): I10 - Essential (primary) hypertension
[2022-04-28] MEDS: TEMAZEPAM 7.5 MG CAPSULE PO PRN (21:18)
[2022-04-29] MEDS: APIXABAN 5 MG TABLET PO SCH (08:47)
[2022-04-29 15:15] LABS: Appearance Urine Cloudy (Clear); Bacteria Urine Automated 1+ (Negative); Bilirubin Urine Negative (Negative); Blood Urine Negative (Negative); Color Urine Yellow; Epithelial Cell Urine Auto 0-5 /lpf (0-5); Glucose Urine UA Negative (Negative); Ketones Urine Negative (Negative); Leukocyte Esterase Urine 3+ (Negative); Nitrite Urine Positive (Negative); Protein Urine Negative (Negative); RBC Urine Automated 0-4 /hpf (0-4); Specific Gravity Urine 1.014 (1.000-1.030); Urobilinogen Urine Negative (Negative); WBC Urine Automated >30 /hpf (0-5)
--- NOTE | 2022-04-29 15:58 | Psychiatric Progress Note ---
Date of Service April 29, 2022 Impression / Recommendations Impression The patient is a 77 year old with a history of schizophrenia, benzodiazepine use disorder, prior suicide attempts and multiple psychiatric hospitalizations (>13) who was admitted for worsening psychosis and SI following recent COVID infection on 305 commitment. Diagnostically his schizophrenia appears to be worsening over the last few months with frequent ED visits and hospitalizations for psychosis and SI, this time triggered by his inability to find his keys/get back into his apartment. MNPR-given hx paranoia, psychosis, inability to tolerate peers and older age 904/29/22: UTI (1) Schizophrenia: (2) Pulmonary embolism: (3) BPH (benign prostatic hyperplasia): (4) Tinnitus of right ear: (5) Hypertension: Plan 04/29/22: UA with bacteruria, typically grows staph resistant to Bactrim so will offer 5 days course of Macrobid. 04/28/22: continue current meds and treatment plan. 04/27/22: Abilify Maintena not available on hospital formulary so he agrees to Abilify Aristada of dose equivalence of 882mg to be given tomorrow. Can then get Maintena or Aristada again in 4 weeks. 04/26/22: Continue current medications and tx. Plan for abilify maintena 400mg IM tomorrow. Fasting lipid panel and glucose tomorrow morning. 04/25/22: left message with Dr. Pizarro's office. Continue with current medications and tx plan. Plan for abilify FARAH in the next 1-2 days. 04/24/22: Continue current medications and tx plan. Reach out to Dr. Pizarro tomorrow to discuss recent medications, likely will proceed with abilify FARAH in next few days 04/23/22: The patient was admitted to the [facility] ([facility] inpatient mental health unit) on q15 min checks (behavioral with suicide precautions) for safety. The patient will participate in group, recreational, and milieu therapies and will be offered additional individual and family sessions as clinically appropriate. -Continue with Eliquis 5mg BID, discussed dosing with pharmacist as he had been refusing some recent doses -Abilify Maintena last given 03/29/2022 -Stop clonazepam -Decrease temazepam to 7.5mg qhs prn with plan to taper to discontinuation -olanzapine 5mg BID prn for agitation/anxiety Inventory Assets Strengths: has housing, has outpatient supports, done well in [facility] environment when medication adherent in the past Needs: medication adjustment, likely needs more supervised living environment Suicide Risk Level Suicide Risk Level: Moderate (q15 min suicide checks) Risk Factors Assessment Male: Yes : Yes Do You Have Access To A Gun?: No Health Problems: Yes Mental Health Diagnoses: Yes Previous Attempt: Yes Family History of Suicide: Yes Previous Psychiatric Hospitalization: Yes Hopelessness: No Protective Factors Assessment Good Rapport with Provider: Yes Interval History Identifying Information SCOTT ROBERTO is a 77-year-old man who currently lives in [place] alone, has a history of schizophrenia, and was admitted on 04/23/22 12:41 on a 305 involuntary commitment for SI and worsening psychosis. Chief Complaint "it graves when I urinate." Review of Systems Sleep Information Total Hours of Sleep: 6.5 Meal Information Percent Meal Consumed - Breakfast: 100 Percent Meal Consumed - Lunch: 100 Percent Meal Consumed - Dinner: 100 Subjective Subjective Patient was seen & assessed and interval progress reviewed with nursing and s ocial work. He is doing well in group. Keeps his delusions to self. Is noting more urinary symptoms and cooperative with UA. Physical Exam Psychiatric Orientation: alert and oriented x 3 Apperance: appropriately dressed and appropriately groomed Motor Behavior: steady gait and station and no abnormal motor movements Affect: + flat affect Mood: no depressed mood and no anxious mood Thought Process: + concrete thought process Thought Content: + delusions Suicidal Thoughts: denies suicidal thoughts Homicidal Thoughts: denies homicidal thoughts Hallucinations: no auditory hallucinations and no visual hallucinations Cognition: attention grossly intact Vital Signs (Past 24 Hours) Last Vital Signs Temp 37.1 C 04/29/22 06:44 Pulse 76 04/29/22 06:44 Resp 16 04/29/22 06:44 BP 114/68 04/29/22 06:44 Results & Data ([facility]) Laboratory Results Laboratory Results - last 24 hr 04/29/22 13:33 Urine Color Yellow Urine Appearance Cloudy A Urine pH 7.0 Ur Specific [place] 1.014 Urine Protein Negative Urine Glucose (UA) Negative Urine Ketones Negative Urine Blood Negative Urine Nitrite Positive A Urine Bilirubin Negative Urine Urobilinogen Negative Ur Leukocyte Esterase 3+ H Urine WBC (Auto) >30 H Urine RBC (Auto) 0-4 U Hyaline Cast (Auto) 5-10 H U Epithel Cells (Auto) 0-5 Urine Bacteria (Auto) 1+ H Current Inpatient Medications Current Inpatient Medications: Current Inpatient Medications Acetaminophen (Acetaminophen 325 Mg Tab) 650 mg PO Q4H PRN PRN Reason: Headache or Minor Fever Stop: 05/23/22 13:07 Al Hydrox/Mg Hydrox/Simethicone (Aluminum/Magnesium Susp 30 Ml Udc) 30 ml PO Q4H PRN PRN Reason: GI Upset Stop: 05/23/22 13:07 Hydroxyzine HCl (Hydroxyzine Hcl 25 Mg Tab) 50 mg PO HSZ PRN PRN Reason: Insomnia Stop: 05/23/22 13:07 Hydroxyzine HCl (Hydroxyzine Hcl 25 Mg Tab) 25 mg PO Q4H PRN PRN Reason: Anxiety Stop: 05/23/22 13:07 Magnesium Hydroxide (Magnesium Hydroxide Susp 30 Ml Udc) 30 ml PO DAILY PRN PRN Reason: Constipation Stop: 05/23/22 13:07 Olanzapine (Olanzapine 5 Mg Tablet) 5 mg PO BID PRN PRN Reason: Anxiety/Agitation Stop: 05/23/22 20:59 Sodium Chloride (Sodium Chloride 0.65% Na Soln 45 Ml ([place])) 1 - 2 sprays NA PRN PRN PRN Reason: Nasal Dryness/Congestion Stop: 05/23/22 13:07 Temazepam (Temazepam 7.5 Mg Capsule) 7.5 mg PO HS PRN PRN Reason: Sleep Stop: 05/23/22 13:11 Last Admin: 04/28/22 21:18 Dose: 7.5 mg (1) Hypertension Hypertension type: essential hypertension Qualified Code(s): I10 - Essential (primary) hypertension
[2022-04-29] MEDS: TEMAZEPAM 7.5 MG CAPSULE PO PRN (20:21)
[2022-04-29] MEDS: NITROFURANTOIN MONOHYDRATE 100 MG CAP PO SCH (20:21)
[2022-04-30] MEDS: NITROFURANTOIN MONOHYDRATE 100 MG CAP PO SCH (08:47)
--- NOTE | 2022-04-30 10:24 | Discharge Summary ---
Date of Service April 30, 2022 History of Present Illness As per Dr. Silva on admission: Tobi presents for psychiatric admission from the medical floor where he was admitted and remained in isolation due to COVID+ status. He is no longer within the infectious period and was deemed medically stable for psychiatric admission. Jamie is well known to me from his frequent past admissions as well as multiple interactions in recent weeks in the ED and on the consult service. Recent history leading to his admission per Dr. Alfredo's initial consult on 04/17/22: "patient was seen in respiratory isolation in full PPE and was uncooperative with assessment, repeatedly stating that he's not sick, doesn't need medication (including anticoagulants) and that he just wants an corporate associate attorney. He will not elaborate and then ultimately refused for a list to be provided. He understands that he is here voluntarily. He arrived to the ED at direction of police as made suicidal statements there when he could not be let into his apartment in a timely manner but also talked of most of his longstanding delusions like being injected with botox in his muscles or getting the chip in his head removed." Dr. Alfredo summarized his recent psychiatric treatment which includes six different presentations in the ED/psychiatric and medical admissions due to SI and psychosis since February 2022. While on the consult service he continued to make statements related to paranoid beliefs that we implanted a chip in his ea r/brain, that we were not who we said we were, attempted to elope requiring security intervention and was converted from his outpatient 304 commitment to an inpatient 305 involuntary commitment given ongoing high risk of harm to himself and lack of self-care due to acute psychosis. On the medical service he repeatedly refused to take his anticoagulation citing odd beliefs that it would cause him to pee or "mess up his face". Today Jamie is unwilling to engage in any type of extended conversation but notes that he recalls me from his previous admission in October 2021 and June 2021 and from talking via telemedicine visit over the last few days. He is fully oriented and reports his mood is "ok". He denies SI and denies hearing any voices. When asked about his concerns yesterday regarding providers at [facility] implanting a chip in his brain he states "I know nothing about it". Continues to refuse to consider taking oral anticoagulation stating "I don't care" and noting ongoing concerns that "I know it's a diuretic" and that "I don't want to bother with it!". He recalls being due for his next Abilify FARAH on 04/27/2022 and denies any side effects from this but also can't recall if it helps stating "I don't know". He is unwilling to participate any further in an interview. Physical Exam Psychiatric See admission H&P and DOD assessment. Vital Signs (Past 24 Hours) Last Vital Signs Temp 36.9 C 04/30/22 06:33 Pulse 71 04/30/22 06:34 Resp 16 04/30/22 06:33 BP 124/60 04/30/22 06:34 Principal Diagnosis schizophrenia Psychiatric Data See daily stay summary. In short, safety was maintained and the patient was cooperative with care. After he recovered from COVID he was actually more pleasant and engaged in care than during previous courses of treatment. There was no longer severity criteria to pursue [facility], particularly when agreeable to community supports. He does not meet criteria for a higher level of nursing care. Medication changes included administration of Aristada as Madie Maintenna was not available on 04/28/22 and this could be continued in 6 weeks or switched back to Maintenna at the discretion of Dr. Pizarro. His social work case manager was involved in his stay and he was able to contact a lock prerna to replace the aquino to his apartment. Safety plan includes that his car is not functional (have repeatedly recommended he not drive while taking benzodiazepines and was recently sleeping behind wheel after taking klonopin). Initially no Restoril was provided at discharge since a script was dispensed last month but his social work case manager confirmed that it was returned to [place]. A short supply of his Restoril with refill was sent. Medically, of note he refused Eloquis anticoagulation given hx of PE during COVID and hospitalist had reviewed the risks extensively with him. He was diagnosed with a UTI just prior to discharge and UC showed pinpoint growth and is being recultured. He will complete his course of Macrobid. Day of Discharge Assessment Today the patient voices readiness for discharge. They note improvement in mood and deny thoughts to harm self or others. Thoughts remain organized and they are improved from admission. Delusions are baseline. They agree to take mediations as prescribed and keep follow-up appointments. They are stable for discharge to outpatient level of care and conversion paperwork was filed. Transition of Care Transition Of Care Record: was reviewed with the patient Advance Directives Advance Directives Information Provided: No Advance Directives: No Mental Health Advance Directive: No Advance Directives on File: No Living Will: No Power of Custom Motorcycle Painter: No Advance Directives Reason:: Declines as Mental Health Visit. Suicide Risk Level Suicide Risk Level Comments: Suicide risk at discharge is deemed low as the patient is no longer requiring 24-hr monitoring, has a safety plan, and is free of suicidal ideation at discharge. Risk Factors Assessment Male: Yes : Yes Do You Have Access To A Gun?: No Health Problems: Yes Mental Health Diagnoses: Yes Previous Attempt: Yes Family History of Suicide: Yes Previous Psychiatric Hospitalization: Yes Hopelessness: No Protective Factors Assessment Good Rapport with Provider: Yes Tobacco Cessation at Discharge Tobacco Cessation Medication Prescribed at Discharge: Not Applicable/Non-Smoker Total Time Total Time Spent: Greater Than 30 Minutes Total Time Includes: Examination of the patient, Discharge Planning and Medication Reconciliation Discharge Data Lab Results 04/27/22 04/29/22 07:03 13:33 Fasting Glucose 85 Triglycerides 60 Cholesterol 143 LDL Cholesterol, Calc 84 VLDL Cholesterol, Calc 12 HDL Cholesterol 47 Cholesterol/HDL Ratio 3.0 Urine Color Yellow Urine Appearance Cloudy A Urine pH 7.0 Ur Specific [place] 1.014 Urine Protein Negative Urine Glucose (UA) Negative Urine Ketones Negative Urine Blood Negative Urine Nitrite Positive A Urine Bilirubin Negative Urine Urobilinogen Negative Ur Leukocyte Esterase 3+ H Urine WBC (Auto) >30 H Urine RBC (Auto) 0-4 U Hyaline Cast (Auto) 5-10 H U Epithel Cells (Auto) 0-5 Urine Bacteria (Auto) 1+ H Hospital Course (1) Schizophrenia: (2) Pulmonary embolism: (3) BPH (benign prostatic hyperplasia): (4) Tinnitus of right ear: (5) Hypertension: Plan 04/29/22: UA with bacteruria, typically grows staph resistant to Bactrim so will offer 5 days course of Macrobid. 04/28/22: continue current meds and treatment plan. 04/27/22: Abilify Maintena not available on hospital formulary so he agrees to Abilify Aristada of dose equivalence of 882mg to be given tomorrow. Can then get Maintena or Aristada again in 4 weeks. 04/26/22: Continue current medications and tx. Plan for abilify maintena 400mg IM tomorrow. Fasting lipid panel and glucose tomorrow morning. 04/25/22: left message with Dr. Pizarro's office. Continue with current medications and tx plan. Plan for abilify FARAH in the next 1-2 days. 04/24/22: Continue current medications and tx plan. Reach out to Dr. Pizarro tomorrow to discuss recent medications, likely will proceed with abilify FARAH in next few days 04/23/22: The patient was admitted to the [facility] ([facility] unit) on q15 min checks (behavioral with suicide precautions) for safety. The patient will participate in group, recreational, and milieu therapies and will be offered additional individual and family sessions as clinically appropriate. -Continue with Eliquis 5mg BID, discussed dosing with pharmacist as he had been refusing some recent doses -Abilify Maintena last given 03/29/2022 -Stop clonazepam -Decrease temazepam to 7.5mg qhs prn with plan to taper to discontinuation -olanzapine 5mg BID prn for agitation/anxiety Post Discharge Appointments Smoking Cessation Counseling Tobacco Cessation Medication Prescribed at Discharge: Not Applicable/Non-Smoker Discharge Plan Discharge Items Patient Disposition: Home - Self-Care Reason For Visit: SCHIZOPHRENIA Discharge Diagnosis: schizophrenia Activity: Resume your previous activity Non-emergency contact: Primary Care Provider, Psychiatrist and Composition Board Press Operator Call non-emergency contact if: you have any medication questions and your symptoms worsen Follow-up/Referrals: PCP,NO [Primary Care Provider] - Diet: Regular Addtl Attending Provider Instructions: SPECIAL CARE INSTRUCTIONS: 1. Follow through with your scheduled aftercare appointments. If unable to keep an appointment, please call to reschedule. 2. Take your medication only as prescribed. Medication should not be changed or stopped without the approval of your doctor. In the event of worsening symptoms or concerns about side effects, contact your doctor immediately. 3. Utilize new healthy coping skills, anger management skills, and stress management skills learned during your hospitalization. Journal feelings and process them with a support person. Identify stressors or situations that may result in relapse, deterioration or inappropriate behaviors and develop a plan to deal with those issues. 4. If your coping skills are ineffective and you are in crisis, contact your outpatient providers for direction. If unable to reach your providers, please call the [facility] CRISIS LINE AT , go to the [facility] walk-in center at [address], [address], [place], or go to the closest Emergency Room. 5. Avoid alcohol and un-prescribed drugs. 6. You have been provided with the Mental Health Advance Directives Pamphlet for your review. 7. Your condition is stable for discharge to outpatient level of care, but recovery is an ongoing process. Ifthoughts to harm yourself or others return, follow the safety plan developed during your stay. Planning for a safe return home includes securing weapons. Our treatment team recommends weaponsbe removed from the home until your outpatient provider reassesses your progress. In rare cases where the items themselvescannot be removed, guns and ammunitionshould be secured separatelyand keys stored by a reliable personoutside of the home. If you were admitted on an involuntary commitment, the police or other legal authorities may be involved in this process. AFTERCARE APPOINTMENTS: * Please call your insurance company prior to your scheduled appointment to confirm your aftercare providers are covered. Take your insurance information to your appointments. WHO TO CALL AND WHEN: Medical Emergencies: For questions or emergencies related to your hospital stay, please contact the Inpatient Behavioral Health Unit at [phone]. A aws software development engineer is on-call 11/03 for the Behavioral Health Unit for emergencies At any time you feel your situation is an emergency, you may also call 911 immediately. Pending Studies at Discharge: No Stand-Alone Forms: My [facility], Smoking Cessation Medications and DC Order Prescriptions: New nitrofurantoin monohyd/m-cryst 100 mg Capsule 100 mg PO BID Qty: 8 0RF Rx Instructions: until gone for UTI temazepam [Restoril] 7.5 mg capsule 7.5 mg PO HS Qty: 14 2RF Aristada 882 mg/3.2 mL suspension,extended rel syring 882 mg IM ONCE Qty: 3.2 0RF Rx Instructions: dose given 04/28/22, due within 6 weeks (or revert to maintenna at discretion of Dr. Pizarro). Discontinued clonazepam 0.5 mg tablet 0.5 mg PO DAILY PRN (Reason: Anxiety) temazepam 15 mg capsule 15 mg PO HS PRN (Reason: Sleep) Qty: 15 0RF Abilify Maintena 300 mg Suspension,Extended Rel Syring 300 mg IM MONTHLY Discharge Orders: Discharge Order (Routine); Ordered 04/30/22 Ordered By: Sugey Alfredo Admission Data Admit Date/Time: 04/23/22 12:41 Attending Provider: Sugey Alfredo Admit Provider: Rosa Silva Primary Care Provider: PCP,NO Other Interventions: Discharge Summary Assessment (RN) Last Done: 04/30/22 10:23 PSY Interdisciplinary Discharge Planning Last Done: 04/30/22 10:41 Coding Level of Care Code 47092 D/C day mgmt > 30 min Diagnoses Schizophrenia F20.9 Pulmonary embolism I26.99 BPH (benign prostatic hyperplasia) N40.0 Tinnitus of right ear H93.11 Hypertension I10 Hypertension type: essential hypertension
== END 2022-04-30 11:14 | disposition home or self-care (01) | DRG 885 ==
LOC: SUATTDRO 12:41 → 3S 12:41